=== PATIENT | female | born 1955 | race African-American/Black ===

== ENCOUNTER 2017-08-17 14:29 | Emergency (ER) | payer OTHER ==
--- NOTE | 2017-08-17 16:00 | RAD REPORT ---
EXAM DESCRIPTION: RAD - Chest Pa And Lat (2 Views) - 08/17/2017 3:55 pm CLINICAL HISTORY: Chest pain. COMPARISON: 05/12/2016, 07/10/2014 FINDINGS: Linear atelectasis seen both lung bases. No focal infiltrate typical of pneumonia. The hea rt is mildly enlarged in size. No displaced fractures. IMPRESSION: Linear atelectasis in both lung bases.
[2017-08-17 16:20] LABS: Urine Bacteria <20 /HPF (<20); Urine RBC <5 /HPF (NONE SEEN)
[2017-08-17 16:21] LABS: Urine Culture Reflex Order NOT NEEDED
[2017-08-17 16:23] LABS: Urine Blood NEGATIVE (NEG); Urine Glucose 3+ (NEG); Urine Protein 1+ (NEG); Urine Specific Gravity 1.015 (1.005-1.030); Urine pH 5.5 (5.0-7.0)
--- NOTE | 2017-08-17 16:45 | EDPHYS ---
Physician Documentation [facility] Name: Aym Montalvo Age: 61 yrs Sex: Female : 1955 Arrival Date: 08/17/2017 Time: 14:32 Bed 6 Private MD: ED Physician Irineo Whelan HPI: 08/17 15:26 This 61 yrs old Black Female presents to ER via Ambulatory with complaints of Flu snw Symptoms. 15:26 "I just feel terrible". Onset: The symptoms/episode began/occurred gradually, 1 day(s) snw ago, and became persistent. Severity of symptoms: At their worst the symptoms were moderate. It is unknown whether or not the patient has had similar symptoms in the past. It is unknown whether or not the patient has recently seen a physician. Historical: - Allergies: 14:39 Dilaudid; aj 14:39 Flagyl; aj 14:39 PENICILLINS; aj - Home Meds: 14:39 aspirin 81 mg Oral TbEC [Active]; atorvastatin 40 mg Oral tab [Active]; glipizide 10 mg aj Oral tr24 2 tabs once daily [Active]; lisinopril 20 mg Oral tab 2 tabs once daily [Active]; metformin 1,000 mg Oral tab [Active]; nifedipine 30 mg Oral TbER [Active]; Victoza 2-Zaire 0.6 mg/0.1 mL (18 mg/3 mL) subcutaneous pnij [Active]; Jardiance oral oral [Active]; - PMHx: 14:39 Diabetes - NIDDM; Hyperlipidemia; Hypertension; Sleep Apnea; aj - PSHx: 14:39 ; Bowel resection; aj - Immunization history:: Adult Immunizations up to date. - Social history:: Smoking status: Patient/guardian denies using tobacco. ROS: 15:23 Eyes: Negative for injury, pain, redness, and discharge, ENT: Negative for injury, snw pain, and discharge, Neck: Negative for injury, pain, and swelling, Cardiovascular: Negative for chest pain, palpitations, and edema. 15:23 Back: Negative for injury and pain, : Negative for injury, bleeding, discharge, and swelling, MS/Extremity: Negative for injury and deformity, Skin: Negative for injury, rash, and discoloration, Neuro: Negative for headache, weakness, numbness, tingling, and seizure. 15:23 Constitutional: Positive for body aches, fatigue, malaise. 15:23 Respiratory: Positive for occ shortness of breath. 15:23 Abdomen/GI: Positive for nausea. Exam: 15:22 Constitutional: This is a well developed, well nourished patient who is awake, alert, snw and in no acute distress. Head/Face: Normocephalic, atraumatic. Eyes: Pupils equal round and reactive to light, extra-ocular motions intact. Lids and lashes normal. Conjunctiva and sclera are non-icteric and not injected. Cornea within normal limits. Periorbital areas with no swelling, redness, or edema. ENT: Nares patent. No nasal discharge, no septal abnormalities noted. Tympanic membranes are normal and external auditory canals are clear. Oropharynx with no redness, swelling, or masses, exudates, or evidence of obstruction, uvula midline. Mucous membranes moist. Neck: Trachea midline, no thyromegaly or masses palpated, and no cervical lymphadenopathy. Supple, full range of motion without nuchal rigidity, or vertebral point tenderness. No Meningismus. Chest/axilla: Normal chest wall appearance and motion. Nontender with no deformity. No lesions are appreciated. Cardiovascular: Regular rate and rhythm with a normal S1 and S2. No gallops, murmurs, or rubs. Normal PMI, no JVD. No pulse deficits. 15:22 Abdomen/GI: Soft, non-tender, with normal bowel sounds. No distension or tympany. No guarding or rebound. No evidence of tenderness throughout. Back: No spinal tenderness. No costovertebral tenderness. Full range of motion. Skin: Warm, dry with normal turgor. Normal color with no rashes, no lesions, and no evidence of cellulitis. MS/ Extremity: Pulses equal, no cyanosis. Neurovascular intact. Full, normal range of motion. Neuro: Awake and alert, GCS 15, oriented to person, place, time, and situation. Cranial nerves II-XII grossly intact. Motor strength 5/5 in all extremities. Sensory grossly intact. Cerebellar exam normal. Normal gait. 15:22 Respiratory: the patient does not display signs of respiratory distress, Respirations: normal, Breath sounds: wheezing: rare. Vital Signs: 14:39 BP 121 / 71; Pulse 100; Resp 14; Temp 98.4; Pulse Ox 95% on R/A; Weight 97.07 kg; aj Height 5 ft. 6 in. (167.64 cm); 15:30 BP 122 / 65; Pulse 86; Resp 16; Pulse Ox 94% ; jl7 16:30 BP 120 / 62; Pulse 89; Resp 16; Pulse Ox 92% ; jl7 17:00 BP 128 / 82; Pulse 86; Resp 18 S; Temp 98.8(O); Pulse Ox 96% on R/A; aa5 17:30 BP 144 / 86; Pulse 87; Resp 16; Pulse Ox 93% ; jl7 14:39 Body Mass Index 34.54 (97.07 kg, 167.64 cm) aj 16:30 pt sleeping jl7 MDM: 15:15 Patient medically screened. snw 17:15 Data reviewed: vital signs, nurses notes. Data interpreted: Pulse oximetry: on room air snw is 96 %. Interpretation: normal. Counseling: I had a detailed discussion with the patient and/or guardian regarding: the historical points, exam findings, and any diagnostic results supporting the discharge/admit diagnosis, the presence of at least one elevated blood pressure reading (>120/80) during this emergency department visit, the need for outpatient follow up, for definitive care, to return to the emergency department if symptoms worsen or persist or if there are any questions or concerns that arise at home. Special discussion: Based on the history and exam findings, there is no indication for further emergent testing or inpatient evaluation. I discussed with the patient/guardian the need to see the primary care provider for further evaluation of the symptoms. 08/17 15:26 Order name: Urine Culture [facility] 08/17 15:26 Order name: Urine Microscopic Only; Complete Time: 16:21 snw 08/17 15:26 Order name: Chest Pa And Lat (2 Views) XRAY; Complete Time: 16:01 snw 08/17 16:02 Order name: Urine Dipstick--Ancillary (enter results); Complete Time: 16:24 eb 08/17 15:26 Order name: Urine Dipstick-Ancillary (obtain specimen); Complete Time: 15:57 snw 08/17 15:26 Order name: EKG; Complete Time: 15:26 sn 08/17 15:26 Order name: EKG - Nurse/Tech; Complete Time: 15:47 snw 08/17 16:22 Order name: VS Recheck; Complete Time: 17:02 snw Administered Medications: 17:02 Drug: Victor 5 mg-325 mg 1 tabs Route: PO; aa5 17:35 Follow up: Response: No adverse reaction; Pain is decreased jl7 17:02 Drug: Zofran 4 mg Route: PO; aa5 17:35 Follow up: Response: No adverse reaction; Nausea is decreased jl7 Disposition: 18:15 Co-signature as Attending Physician, Irineo Whelan MD. rn Disposition: 08/17/17 16:44 Discharged to Home. Impression: Malaise and fatigue. - Condition is Stable. - Discharge Instructions: Fatigue. - Prescriptions for Zofran 4 mg Oral Tablet - take 1 tablet by ORAL route 3 times per day As needed; 6 tablet. - Medication Reconciliation Form, Thank You Letter, Antibiotic Education, Prescription Opioid Use form. - Follow up: Private Physician; When: Tomorrow; Reason: Recheck today's complaints, Continuance of care, Re-evaluation by your physician. Follow up: Emergency Department; When: As needed; Reason: Worsening of condition. Signatures: Dispatcher [employer] EDRissa Salazar RN Shira Richards, BARREL FILLER-C BARREL FILLER-Csnw Irineo Whelan MD MD rn Calderon, Audri RN RN aa5 Rachel Guadalupe RN RN jl7 Corrections: (The following items were deleted from the chart) 17:36 16:44 08/17/2017 16:44 Discharged to Home. Impression: Malaise and fatigue. Condition jl7 is Stable. Forms are Medication Reconciliation Form, Thank You Letter, Antibiotic Education, Prescription Opioid Use. Follow up: Private Physician; When: Tomorrow; Reason: Recheck today's complaints, Continuance of care, Re-evaluation by your physician. Follow up: Emergency Department; When: As needed; Reason: Worsening of condition. snw
--- NOTE | 2017-08-17 16:45 | ER ---
Nurse's Notes [facility] Name: Amy Montalvo Age: 61 yrs Sex: Female : 1955 Arrival Date: 08/17/2017 Time: 14:32 Bed 6 Private MD: Diagnosis: Malaise and fatigue Presentation: 08/17 14:37 Presenting complaint: Patient states: Flu like symptoms since yesterday. Transition of care: patient was not received from another setting of care. Onset of symptoms was August 16, 2017. Initial Sepsis Screen: Does the patient meet any 2 criteria? No. Patient's initial sepsis screen is negative. Does the patient have a suspected source of infection? No. Patient's initial sepsis screen is negative. Care prior to arrival: None. 14:37 Method Of Arrival: Ambulatory 14:37 Acuity: FARIDA 4 Triage Assessment: 14:39 General: Appears in no apparent distress. comfortable, Behavior is calm, cooperative, aj appropriate for age. Pain: Complains of pain in body aches. EENT: Reports nasal congestion nasal discharge. Neuro: Level of Consciousness is awake, alert, obeys commands, Oriented to person, place, time, situation, Appropriate for age. Respiratory: Reports cough that is. Derm: Skin is intact, is healthy with good turgor, Skin is pink, warm \T\ dry. normal. Historical: - Allergies: 14:39 Dilaudid; aj 14:39 Flagyl; aj 14:39 PENICILLINS; aj - Home Meds: 14:39 aspirin 81 mg Oral TbEC [Active]; atorvastatin 40 mg Oral tab [Active]; glipizide 10 mg aj Oral tr24 2 tabs once daily [Active]; lisinopril 20 mg Oral tab 2 tabs once daily [Active]; metformin 1,000 mg Oral tab [Active]; nifedipine 30 mg Oral TbER [Active]; Victoza 2-Zaire 0.6 mg/0.1 mL (18 mg/3 mL) subcutaneous pnij [Active]; Jardiance oral oral [Active]; - PMHx: 14:39 Diabetes - NIDDM; Hyperlipidemia; Hypertension; Sleep Apnea; aj - PSHx: 14:39 ; Bowel resection; aj - Immunization history:: Adult Immunizations up to date. - Social history:: Smoking status: Patient/guardian denies using tobacco. Screenin:30 Abuse screen: Denies threats or abuse. Denies injuries from another. Nutritional jl7 screening: No deficits noted. Tuberculosis screening: No symptoms or risk factors identified. Fall Risk None identified. Assessment: 15:30 General: Appears in no apparent distress. uncomfortable, Behavior is calm, cooperative, jl7 appropriate for age. Pain: Complains of pain in throat Pain does not radiate. Pain currently is 5 out of 10 on a pain scale. Quality of pain is described as sore Pain began 1 day ago. Is continuous. Neuro: Level of Consciousness is awake, alert, obeys commands. Cardiovascular: Heart tones S1 S2 present Patient's skin is warm and dry. Respiratory: Airway is patent Respiratory effort is even, unlabored, Respiratory pattern is regular, symmetrical, Breath sounds are clear bilaterally. GI: Reports nausea, Patient currently denies diarrhea, vomiting. : No signs and/or symptoms were reported regarding the genitourinary system. EENT: No signs and/or symptoms were reported regarding the EENT system. Derm: Skin is dry, Skin is normal, Skin temperature is warm. Musculoskeletal: No signs and/or symptoms reported regarding the musculoskeletal system. 16:30 Reassessment: Patient and/or family updated on plan of care and expected duration. Pain jl7 level reassessed. Patient is alert, oriented x 3, equal unlabored respirations, skin warm/dry/pink. 17:00 Reassessment: Patient and/or family updated on plan of care and expected duration. Pain jl7 level reassessed. Patient is alert, oriented x 3, equal unlabored respirations, skin warm/dry/pink. Patient states symptoms have improved. Vital Signs: 14:39 BP 121 / 71; Pulse 100; Resp 14; Temp 98.4; Pulse Ox 95% on R/A; Weight 97.07 kg; aj Height 5 ft. 6 in. (167.64 cm); 15:30 BP 122 / 65; Pulse 86; Resp 16; Pulse Ox 94% ; jl7 16:30 BP 120 / 62; Pulse 89; Resp 16; Pulse Ox 92% ; jl7 17:00 BP 128 / 82; Pulse 86; Resp 18 S; Temp 98.8(O); Pulse Ox 96% on R/A; aa5 17:30 BP 144 / 86; Pulse 87; Resp 16; Pulse Ox 93% ; jl7 14:39 Body Mass Index 34.54 (97.07 kg, 167.64 cm) aj 16:30 pt sleeping jl7 ED Course: 14:32 Patient arrived in ED. sb2 14:38 Triage completed. aj 14:39 Arm band placed on left wrist. Patient placed in an exam room. aj 15:13 Rachel Guadalupe, RN is Primary Nurse. jl7 15:14 Shira Hunt FNP-C is PHCP. snw 15:14 Irineo Whelan MD is Attending Physician. snw 15:30 Patient has correct armband on for positive identification. Placed in gown. Bed in low jl7 position. Call light in reach. Side rails up X 1. Pulse ox on. NIBP on. 15:30 Urine collected: clean catch specimen, EKG done, by ED staff, reviewed by Shira LENZ. 15:55 Chest Pa And Lat (2 Views) XRAY In Process Unspecified. EDRI 17:34 No provider procedures requiring assistance completed. Patient did not have IV access jl7 during this emergency room visit. Administered Medications: 17:02 Drug: [place] 5 mg-325 mg 1 tabs Route: PO; aa5 17:35 Follow up: Response: No adverse reaction; Pain is decreased jl7 17:02 Drug: Zofran 4 mg Route: PO; aa5 17:35 Follow up: Response: No adverse reaction; Nausea is decreased jl7 Outcome: 16:44 Discharge ordered by MD. snw 17:34 Discharged to home via wheelchair, with family. jl7 17:34 Condition: stable 17:34 Discharge instructions given to patient, Instructed on discharge instructions, follow up and referral plans. medication usage, Demonstrated understanding of instructions, follow-up care, medications, Prescriptions given X 1. 17:36 Patient left the ED. jl7 Signatures: Dispatcher [employer] EDRissa Salazar RN RN aj Therrien, Shelly, FNP-C FNP-Deviw Sandy Paris RN RN aa5 Leal, Jahala, RN RN jl7 Carie Troncoso sb2 Corrections: (The following items were deleted from the chart) 14:38 14:37 Acuity: FARIDA 3 aj aj 17:34 15:30 BP 120 / 62; Pulse 89bpm; Resp 16bpm; Pulse Ox 92%; pt sleeping; jl7 jl7 17:34 16:30 BP 144 / 86; Pulse 87bpm; Resp 16bpm; Pulse Ox 93%; jl7 jl7
[2017-08-17] MEDS ORDERED: HYDROCODONE/APAP 5/325 MG TAB ONE (16:58)
[2017-08-17] MEDS ORDERED: ONDANSETRON 4 MG (ODT) TAB ONE (16:58)
[2017-08-17 17:43] VITALS: TEMP 98.8
[2017-08-17 17:45] VITALS: BP 144/86; O2SAT 93
--- NOTE | 2017-08-18 06:55 | EKG ---
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
== END 2017-08-17 17:36 | disposition home or self-care (01) ==
LOC: ER 14:29
DX: R53.81 Other malaise (principal); R53.83 Other fatigue; R11.0 Nausea; I10 Essential (primary) hypertension; E11.9 Type 2 diabetes mellitus without complications; E78.5 Hyperlipidemia, unspecified; Z79.82 Long term (current) use of aspirin; Z79.4 Long term (current) use of insulin; Z88.0 Allergy status to penicillin; Z88.8 Allergy status to other drugs, medicaments and biological substances
CPT/HCPCS: 71046; 81003; 81015; 87086; 87088; 93005; 99284

== ENCOUNTER 2017-10-04 18:23 | Emergency (ER) | payer OTHER ==
[2017-10-04 19:45] LABS: Absolute Lymphocytes (CBC) 2.3 K/uL (0.7-4.9); Absolute Monocytes 0.5 K/uL (0.1-1.3); Basophils % 0.5 % (0-1.3); Eosinophils % 2.4 % (0-4.4); Hematocrit 37.6 % (36.0-45.0); Lymphocytes % 32.6 % (15.3-44.8); MCH 25.7 pg (27.0-35.0); MCV 80.6 fL (80-100); MPV 10.2 fL (7.6-11.3); Monocytes % 7.7 % (3.3-12.3); RBC Red Blood Cell Count 4.67 M/uL (3.86-4.86)
[2017-10-04 19:52] LABS: Protime INR 0.94
[2017-10-04] MEDS ORDERED: IPRATROPIUM BROM 0.5MG/2.5ML ONE (20:09)
[2017-10-04] MEDS ORDERED: ALBUTEROL 2.5 MG/3 ML NEB SOL ONE (20:09)
--- NOTE | 2017-10-04 20:11 | RAD REPORT ---
EXAM DESCRIPTION: RAD - Chest Single View - 10/04/2017 8:02 pm CLINICAL HISTORY: COUGH Chest pain. COMPARISON: Chest Pa And Lat (2 Views) dated 08/17/2017; Chest Single View dated 05/12/2016; CHEST PA A ND LAT 2 VIEW dated 07/10/2014; CHEST SINGLE VIEW dated 02/26/2013Chest Pa And Lat (2 Views) dated 08/17; Chest Single View dated 05/12/2016; CHEST PA AND LAT 2 VIEW dated 07/10/2014; CHEST SINGLE VIEW dated 02/26/2013; CHEST PA AND LAT 2 VIEW dated 02/04/2011 FINDINGS: Portable technique limits examination quality. The lungs are grossly clear. The heart is upper limit normal size. No displaced fractures. IMPRESSION: No acute intrathoracic process suspected.
[2017-10-04 20:18] LABS: Urine Blood NEGATIVE (NEG); Urine Glucose 2+ (NEG); Urine Protein NEGATIVE (NEG); Urine Specific Gravity 1.015 (1.005-1.030); Urine pH 5.5 (5.0-7.0)
[2017-10-04 21:19] LABS: Urine Amorphous Sediment TRACE /HPF (NONE SEEN); Urine Bacteria <20 /HPF (<20); Urine Culture Reflex Order NOT NEEDED; Urine RBC <5 /HPF (NONE SEEN)
[2017-10-04] MEDS ORDERED: NA CHLORIDE 0.9% 1,000 ML ONE (21:37)
[2017-10-04 22:30] LABS: ALT/SGPT 22 U/L (12-78); AST/SGOT 18 U/L (15-37); Albumin 3.1 g/dL (3.4-5.0); Alkaline Phosphatase 100 U/L (45-117); BUN Blood Urea Nitrogen 30 mg/dL (7-18); Bicarbonate 28 mmol/L (21-32); Bilirubin Direct < 0.1 mg/dL (0-0.2); Bilirubin Total 0.1 mg/dL (0.2-1.0); CKMB Creatine Kinase MB < 1.0 ng/mL (0.3-3.6); Creatine Phosphokinase 67 U/L (26-192); Glucose Level 299 mg/dL (74-106); Magnesium 1.9 mg/dL (1.8-2.4); Potassium 3.5 mmol/L (3.5-5.1); Protein, Total 7.2 g/dL (6.4-8.2); Sodium Level 136 mmol/L (136-145)
--- NOTE | 2017-10-04 23:14 | EDPHYS ---
Physician Documentation [facility] Name: Amy Montalvo Age: 61 yrs Sex: Female : 1955 Arrival Date: 10/04/2017 Time: 18:26 Bed 25 Private MD: ED Physician Pancho Morrison HPI: 10/04 19:16 This 61 yrs old Black Female presents to ER via Ambulatory with complaints of High cp Blood Sugar. 19:16 The patient or guardian reports hyperglycemia, that was potentially precipitated by no cp particular event. Onset: The symptoms/episode began/occurred this morning. Associated signs and symptoms: Pertinent positives: cough times 2 months. 19:16 Current symptoms: In the emergency department the patient's symptoms have improved, cp mildly. Historical: - Allergies: 18:30 Dilaudid; hj 18:30 Flagyl; hj 18:30 PENICILLINS; hj - Home Meds: 18:30 aspirin 81 mg Oral TbEC [Active]; atorvastatin 40 mg Oral tab [Active]; Actos Oral hj [Active]; Tresiba FlexTouch U-100 100 unit/mL (3 mL) subcutaneous inpn [Active]; nifedipine 30 mg Oral TbER [Active]; Metoprolol Tartrate Oral [Active]; - PMHx: 18:30 Diabetes - NIDDM; Hyperlipidemia; Hypertension; Sleep Apnea; hj - PSHx: 18:30 ; Bowel resection; hj - Immunization history:: Adult Immunizations up to date. - Social history:: Smoking status: Patient/guardian denies using tobacco, Patient/guardian denies using alcohol. - Ebola Screening: : Patient negative for fever greater than or equal to 101.5 degrees Fahrenheit, and additional compatible Ebola Virus Disease symptoms Patient denies exposure to infectious person Patient denies travel to an Ebola-affected area in the 21 days before illness onset. ROS: 19:20 Constitutional: Negative for body aches, chills, fever, poor PO intake. cp 19:20 Eyes: Negative for injury, pain, redness, and discharge. cp 19:20 ENT: Negative for drainage from ear(s), ear pain, rhinorrhea, sore throat, difficulty swallowing, difficulty handling secretions. 19:20 Cardiovascular: Negative for chest pain, edema, palpitations. 19:20 Respiratory: Positive for cough, with no reported sputum, Negative for shortness of breath, wheezing. 19:20 Abdomen/GI: Negative for abdominal pain, nausea, vomiting, and diarrhea, black/tarry stool, rectal bleeding. 19:20 Back: Negative for pain at rest, pain with movement, radiated pain. 19:20 : Negative for urinary symptoms. 19:20 Skin: Negative for cellulitis, rash. 19:20 Neuro: Negative for altered mental status, dizziness, headache, loss of consciousness, syncope, near syncope. 19:20 All other systems are negative. Exam: 19:30 Constitutional: The patient appears in no acute distress, alert, awake, cp non-diaphoretic, non-toxic, well developed, well nourished. 19:30 Head/Face: Normocephalic, atraumatic. cp 19:30 Eyes: Periorbital structures: appear normal, Pupils: equal, round, and reactive to cp light and accomodation, Extraocular movements: intact throughout, Conjunctiva: normal, no exudate, no injection, Sclera: no appreciated abnormality, Lids and lashes: appear normal, bilaterally. 19:30 ENT: External ear(s): are unremarkable, Ear canal(s): are normal, clear, TM's: bulging, is not appreciated, bilaterally, dullness, bilaterally, erythema, is not appreciated, bilaterally, Nose: is normal, Mouth: Lips: moist, Oral mucosa: pink and intact, moist, Posterior pharynx: is normal, airway is patent, no erythema, no exudate, Voice: is normal. 19:30 Neck: ROM/movement: is normal, is supple, without pain, no range of motions limitations, no meningismus, no nuchal rigidity. 19:30 Chest/axilla: Inspection: normal, Palpation: is normal, no crepitus, no tenderness. 19:30 Cardiovascular: Rate: normal, Rhythm: regular, Pulses: Pulses are 2+ in right radial artery and left radial artery. Edema: is not appreciated, JVD: is not appreciated. 19:30 Respiratory: the patient does not display signs of respiratory distress, Respirations: cp normal, no use of accessory muscles, no retractions, no splinting, no tachypnea, labored breathing, is not present, Breath sounds: bronchial sounds, that are mild, are heard diffusely, decreased breath sounds, are not appreciated, stridor, is not appreciated, + upper airway congestion. wheezing: is not appreciated. 19:30 Abdomen/GI: Inspection: abdomen appears normal, Bowel sounds: active, all quadrants, Palpation: abdomen is soft and non-tender, in all quadrants, rebound tenderness, is not appreciated, voluntary guarding, is not appreciated, involuntary guarding, is not appreciated. 19:30 Back: pain, is absent, ROM is normal. 19:30 Skin: cellulitis, is not appreciated, no rash present. 19:30 Neuro: Orientation: to person, place \T\ time. Mentation: lucid, able to follow commands, Cerebellar function: is grossly normal, Motor: moves all fours, strength is normal, Sensation: no obvious gross deficits, Gait: is steady. 21:20 ECG was reviewed by the Attending Physician. cp Vital Signs: 18:30 BP 123 / 68; Pulse 97; Resp 18; Temp 97.9(TE); Pulse Ox 94% on R/A; Weight 95.25 kg; hj Height 5 ft. 7 in. (170.18 cm); Pain 0/10; 23:35 BP 114 / 62; Pulse 96; Resp 16; Pulse Ox 95% ; tl3 18:30 Body Mass Index 32.89 (95.25 kg, 170.18 cm) hj MDM: 18:36 Patient medically screened. cp 20:00 Differential diagnosis: DKA, hyperglycemia, hyperthyroidism, hypothyroidism, UTI, cp pneumonia, asthma. 23:10 Data reviewed: vital signs, nurses notes, lab test result(s), EKG, radiologic studies, cp plain films. 23:10 Test interpretation: by ED physician or midlevel provider: ECG, plain radiologic cp studies. Counseling: I had a detailed discussion with the patient and/or guardian regarding: the historical points, exam findings, and any diagnostic results supporting the discharge/admit diagnosis, lab results, radiology results, the need for outpatient follow up, an external auditor. Response to treatment: the patient's symptoms have mildly improved after treatment, VSS. Cough improved with breathing treatment. Will discharge to home for continued monitoring. 10/04 18:37 Order name: Urine Microscopic Only; Complete Time: 21:37 cp 10/04 21:37 Interpretation: Normal except: SQEPI 10-20. cp 10/04 19:18 Order name: Basic Metabolic Panel; Complete Time: 22:57 cp 10/04 22:57 Interpretation: Normal except: GLUC 299; BUN 30; GFR 55. cp 10/04 19:18 Order name: CBC with Diff; Complete Time: 20:27 cp 10/04 20:27 Interpretation: Normal except: MCH 25.7; MCHC 31.8; RDW 16.8. cp 10/04 19:18 Order name: Ckmb; Complete Time: 22:57 cp 10/04 19:18 Order name: CPK; Complete Time: 22:57 cp 10/04 19:18 Order name: LFT's; Complete Time: 22:57 cp 10/04 22:57 Interpretation: Normal except: BILIT 0.1; ALB 3.1; GLOB 4.1; A/G 0.8. cp 10/04 19:18 Order name: Magnesium; Complete Time: 22:57 cp 10/04 19:18 Order name: PT-INR; Complete Time: 20:27 cp 10/04 21:55 Interpretation: Reviewed. 10/04 19:18 Order name: Ptt, Activated; Complete Time: 20:27 cp 10/04 19:18 Order name: Troponin (emerg Dept Use Only); Complete Time: 22:57 cp 10/04 22:57 Interpretation: TROPED < 0.02; Reviewed. 10/04 19:18 Order name: XRAY Chest (1 view); Complete Time: 20:27 cp 10/04 20:00 Order name: Urine Dipstick--Ancillary (enter results) rg2 10/04 20:00 Order name: Urine Dipstick-Ancillary; Complete Time: 20:27 EDMS 10/04 21:39 Interpretation: Normal except: UGLUC 2+. cp 10/04 18:37 Order name: Urine Dipstick-Ancillary (obtain specimen); Complete Time: 20:09 cp 10/04 19:18 Order name: EKG; Complete Time: 19:19 cp 10/04 19:18 Order name: Cardiac monitoring; Complete Time: 20:09 cp 10/04 19:18 Order name: EKG - Nurse/Tech; Complete Time: 21:41 cp 10/04 19:18 Order name: IV Saline Lock; Complete Time: 21:41 cp 10/04 19:18 Order name: Labs collected and sent; Complete Time: 20:09 10/04 19:18 Order name: O2 Per Protocol; Complete Time: 20:09 cp 10/04 19:18 Order name: O2 Sat Monitoring; Complete Time: 20:09 cp 10/04 21:12 Order name: Accucheck Blood Glucose; Complete Time: 23:30 cp EC:20 Rate is 87 beats/min. Rhythm is regular. AL interval is normal. QRS interval is normal. cp QT interval is normal. No ST changes noted. Interpreted by me. Reviewed by me. Administered Medications: 20:09 Drug: Albuterol - atroVENT (3:1) (2.5 mg - 0.5 mg) 3 ml Route: Nebulizer; tl3 23:37 Follow up: Response: No adverse reaction tl3 21:41 Drug: NS 0.9% 1000 ml Route: IV; Rate: 1 bolus; Site: left forearm; tl3 23:37 Follow up: IV Status: Completed infusion; IV Intake: 1000ml tl3 Point of Care Testing: Blood Glucose: 18:36 Blood Glucose: 371 mg/dL; tl3 Ranges: Critical Glucose Levels:Adult <50 mg/dl or >400 mg/dl <40 mg/dl or >180 mg/dl Disposition: 10/04/17 23:13 Discharged to Home. Impression: Diabetes mellitus due to underlying condition with hyperglycemia, Cough. - Condition is Stable. - Discharge Instructions: Cool Mist Vaporizers, Blood Glucose Monitoring, Adult, Diabetes Mellitus and Food, Cough, Adult. - Prescriptions for Tessalon Perles 100 mg Oral Capsule - take 1 capsule by ORAL route every 8 hours As needed; 15 capsule. Albuterol Sulfate 90 mcg/actuation - inhale 1-2 puff by INHALATION route every 4-6 hours; 1 Inhaler. Medrol (Zaire) 4 mg Oral Tablets, Dose Pack - take 1 tablet by ORAL route as directed - follow package instructions; 1 packet. - Medication Reconciliation Form, Thank You Letter, Antibiotic Education, Prescription Opioid Use form. - Follow up: Private Physician; When: 1 - 2 days; Reason: Recheck today's complaints. - Problem is new. - Symptoms have improved. Addendum: 10/06/2017 13:13 Co-signature as Attending Physician, Pancho Morrison MD Available for consultation at p s1 all times. . Signatures: Dispatcher [employer] Herb Hernandez, RN RN hj Akira Patel PA PA cp Pancho Morrison MD MD ps1 Saba Ling, AGUEDA RN tl3 Corrections: (The following items were deleted from the chart) 10/04 23:38 23:13 10/04/2017 23:13 Discharged to Home. Impression: Diabetes mellitus due to tl3 underlying condition with hyperglycemia; Cough. Condition is Stable. Forms are Medication Reconciliation Form, Thank You Letter, Antibiotic Education, Prescription Opioid Use. Follow up: Private Physician; When: 1 - 2 days; Reason: Recheck today's complaints. Problem is new. Symptoms have improved. cp
--- NOTE | 2017-10-04 23:14 | ER ---
Nurse's Notes [facility] Name: Amy Montalvo Age: 61 yrs Sex: Female : 1955 Arrival Date: 10/04/2017 Time: 18:26 Bed 25 Private MD: Diagnosis: Diabetes mellitus due to underlying condition with hyperglycemia;Cough Presentation: 10/04 18:26 Presenting complaint: Patient states: i checked by blood sugar about 30 mins ago, BGL- hj 476; did not take meds this AM; reports feeling weak; denies nausea and vomiting;. Transition of care: patient was not received from another setting of care. Onset of symptoms was October 04, 2017. Risk Assessment: Do you want to hurt yourself or someone else? Patient reports no desire to harm self or others. Initial Sepsis Screen: Does the patient meet any 2 criteria? No. Patient's initial sepsis screen is negative. Does the patient have a suspected source of infection? No. Patient's initial sepsis screen is negative. Care prior to arrival: None. 18:26 Method Of Arrival: Ambulatory 18:26 Acuity: FARIDA 3 hj Triage Assessment: 18:30 General: Appears in no apparent distress. comfortable, Behavior is calm, cooperative, hj appropriate for age. Pain: Denies pain. Historical: - Allergies: 18:30 Dilaudid; hj 18:30 Flagyl; hj 18:30 PENICILLINS; hj - Home Meds: 18:30 aspirin 81 mg Oral TbEC [Active]; atorvastatin 40 mg Oral tab [Active]; Actos Oral hj [Active]; Tresiba FlexTouch U-100 100 unit/mL (3 mL) subcutaneous inpn [Active]; nifedipine 30 mg Oral TbER [Active]; Metoprolol Tartrate Oral [Active]; - PMHx: 18:30 Diabetes - NIDDM; Hyperlipidemia; Hypertension; Sleep Apnea; hj - PSHx: 18:30 ; Bowel resection; hj - Immunization history:: Adult Immunizations up to date. - Social history:: Smoking status: Patient/guardian denies using tobacco, Patient/guardian denies using alcohol. - Ebola Screening: : Patient negative for fever greater than or equal to 101.5 degrees Fahrenheit, and additional compatible Ebola Virus Disease symptoms Patient denies exposure to infectious person Patient denies travel to an Ebola-affected area in the 21 days before illness onset. Screenin:30 Abuse screen: Denies threats or abuse. Denies injuries from another. Nutritional hj screening: No deficits noted. Tuberculosis screening: No symptoms or risk factors identified. Fall Risk None identified. Assessment: 19:11 Reassessment: pt was recently place on insulin therapy, has been unable to get blood tl3 sugars regulated. General: Appears uncomfortable, obese, well groomed, well developed, well nourished, Behavior is calm, cooperative, appropriate for age. Pain: Denies pain. Neuro: Level of Consciousness is awake, alert, obeys commands, Oriented to person, place, time, situation, Appropriate for age. Cardiovascular: Heart tones S1 S2 present Patient's skin is warm and dry. Respiratory: Airway is patent Respiratory effort is even, unlabored, Respiratory pattern is regular, symmetrical. GI: No signs and/or symptoms were reported involving the gastrointestinal system. : No signs and/or symptoms were reported regarding the genitourinary system. EENT: No signs and/or symptoms were reported regarding the EENT system. Derm: No signs and/or symptoms reported regarding the dermatologic system. Musculoskeletal: No signs and/or symptoms reported regarding the musculoskeletal system. 20:15 Reassessment: Patient appears in no apparent distress at this time. No changes from tl3 previously documented assessment. Patient and/or family updated on plan of care and expected duration. Pain level reassessed. Patient is alert, oriented x 3, equal unlabored respirations, skin warm/dry/pink. pt states that she is feeling somewhat better after her breathing treatment. 23:35 Reassessment: Patient appears in no apparent distress at this time. No changes from tl3 previously documented assessment. Patient and/or family updated on plan of care and expected duration. Pain level reassessed. Patient is alert, oriented x 3, equal unlabored respirations, skin warm/dry/pink. Vital Signs: 18:30 BP 123 / 68; Pulse 97; Resp 18; Temp 97.9(TE); Pulse Ox 94% on R/A; Weight 95.25 kg; hj Height 5 ft. 7 in. (170.18 cm); Pain 0/10; 23:35 BP 114 / 62; Pulse 96; Resp 16; Pulse Ox 95% ; tl3 18:30 Body Mass Index 32.89 (95.25 kg, 170.18 cm) ED Course: 18:26 Patient arrived in ED. hj 18:28 Triage completed. hj 18:30 Arm band placed on right wrist. hj 18:30 Patient has correct armband on for positive identification. Placed in gown. Bed in low hj position. Call light in reach. Side rails up X 1. 18:36 Saba Ling RN is Primary Nurse. tl3 18:36 Akira Patel PA is PHCP. cp 18:36 Daniel Snyder MD is Attending Physician. cp 19:09 No provider procedures requiring assistance completed. Initial lab(s) drawn, by de, tl3 Urine collected: clean catch specimen, clear. Inserted saline lock: 20 gauge in left forearm, using aseptic technique. Blood collected. 20:02 XRAY Chest (1 view) In Process Unspecified. EDMS 20:05 Urine Dipstick--Ancillary (enter results) Sent. tl3 20:28 Pancho Morrison MD is Attending Physician. cp 23:35 IV discontinued, intact, bleeding controlled, No redness/swelling at site. Pressure tl3 dressing applied. Administered Medications: 20:09 Drug: Albuterol - atroVENT (3:1) (2.5 mg - 0.5 mg) 3 ml Route: Nebulizer; tl3 23:37 Follow up: Response: No adverse reaction tl3 21:41 Drug: NS 0.9% 1000 ml Route: IV; Rate: 1 bolus; Site: left forearm; tl3 23:37 Follow up: IV Status: Completed infusion; IV Intake: 1000ml tl3 Point of Care Testing: Blood Glucose: 18:36 Blood Glucose: 371 mg/dL; tl3 Ranges: Intake: 23:37 IV: 1000ml; Total: 1000ml. tl3 Outcome: 23:13 Discharge ordered by . cp 23:35 Discharged to home ambulatory. tl3 23:35 Condition: stable 23:35 Discharge instructions given to patient, Instructed on discharge instructions, follow up and referral plans. medication usage, Demonstrated understanding of instructions, follow-up care, medications, Prescriptions given X 3, stressed importance of following up with PCP to regulate insulin needs 23:38 Patient left the ED. tl3 Signatures: Dispatcher [employer] EDMS Herb Sanchez RN RN Akira Patel PA PA cp Lowrey, Tammy, RN RN tl3 Corrections: (The following items were deleted from the chart) 18:32 18:30 Pulse 97bpm; Resp 18bpm; Pulse Ox 94% RA; Temp 97.9F Temporal; 95.25 kg; Height 5 hj ft. 7 in.; BMI: 32.8; Pain 0/10; hj
[2017-10-05 01:22] VITALS: TEMP 97.9
[2017-10-05 01:23] VITALS: BP 114/62; O2SAT 95
--- NOTE | 2017-10-06 06:55 | EKG ---
Test Date: 2017-10-04 Test Time: 21:12:19 Consumer Services Consultant: TL MEASUREMENT RESULTS: Intervals: Rate: 87 IA: 146 QRSD: 86 QT: 384 QTc: 462 Walker: P: 63 IA: 146 QRS: 17 T: 40 INTERPRETIVE STATEMENTS: Normal sinus rhythm Minimal voltage criteria for LVH, may be normal variant Borderline ECG Compared to ECG 08/17/2017 15:40:35 No significant changes Electronically Signed On 10-06-17 06:54:27 CDT by Jin Teague
== END 2017-10-04 23:38 | disposition home or self-care (01) ==
LOC: ER 18:23
DX: E11.65 Type 2 diabetes mellitus with hyperglycemia (principal); I10 Essential (primary) hypertension; E78.5 Hyperlipidemia, unspecified; Z88.3 Allergy status to other anti-infective agents; Z88.0 Allergy status to penicillin; Z88.8 Allergy status to other drugs, medicaments and biological substances
CPT/HCPCS: 36415; 71045; 80048; 80076; 81003; 81015; 82550; 82553; 82962; 83735; 84484; 85025; 85610; 85730; 93005; 94640; 96360; 96361; 99284; J7030

== ENCOUNTER 2018-06-29 09:27 | Inpatient (IN) | payer OTHER ==
--- OUTSIDE RECORDS SUMMARY | 2018-06-29 09:29 | XMS REPORT ---
:1955 [facility] Address [address] [place] [address] Dr. Carlin [address] [place] [id number] Care Team Providers Name Role Phone Unavailable Unavailable Unavailable Payers Payer Name Policy Type Policy Number Effective Date Expiration Date Problems This patient has no known problems. Allergies, Adverse Reactions, Alerts This patient has no known allergies or adverse reactions. Medications This patient has no known medications.
[2018-06-29 10:35] LABS: Absolute Lymphocytes (CBC) 1.2 K/uL (0.7-4.9); Absolute Monocytes 0.7 K/uL (0.1-1.3); Absolute Neutrophil 5.2 K/uL (1.8-8.0); Basophils % 0.3 % (0-1.3); Eosinophils % 3.1 % (0-4.4); Hematocrit 36.8 % (36.0-45.0); Lymphocytes % 16.3 % (15.3-44.8); MPV 9.2 fL (7.6-11.3); Monocytes % 10.1 % (3.3-12.3); RBC Red Blood Cell Count 4.76 M/uL (3.86-4.86)
--- NOTE | 2018-06-29 10:45 | RAD REPORT ---
EXAM DESCRIPTION: RAD - Chest Single View - 06/29/2018 10:32 am CLINICAL HISTORY: Dyspnea;Fever;Cough Chest pain. COMPARISON: Chest Single View dated 10/04/2017; Chest Pa And Lat (2 Views) dated 08/17/2017; Chest Sing le View dated 05/12/2016; CHEST PA AND LAT 2 VIEW dated 07/10/2014 FINDINGS: Portable technique limits examination quality. The lungs are grossly clear. The heart is normal in size. No displaced fractures. IMPRESSION: No acute intrathoracic process suspected.
[2018-06-29 10:55] LABS: Protime INR 0.97
[2018-06-29] MEDS ORDERED: Levofloxacin500mg IV 500 MG/100 ML BAG IV ONE (11:41)
[2018-06-29] MEDS ORDERED: METHYLPREDNISOLONE 125 MG INJ ONE (11:41)
[2018-06-29] MEDS ORDERED: ACETAMINOPHEN 500 MG TAB ONE (11:41)
[2018-06-29] MEDS ORDERED: NA CHLORIDE 0.9% 2,000 ML ONE (11:41)
[2018-06-29 12:01] LABS: ALT/SGPT 32 U/L (12-78); AST/SGOT 29 U/L (15-37); Albumin 3.2 g/dL (3.4-5.0); Alkaline Phosphatase 84 U/L (45-117); BUN Blood Urea Nitrogen 19 mg/dL (7-18); Bicarbonate 29 mmol/L (21-32); Bilirubin Direct < 0.1 mg/dL (0-0.2); Bilirubin Total 0.5 mg/dL (0.2-1.0); CKMB Creatine Kinase MB 1.6 ng/mL (0.3-3.6); Creatine Phosphokinase 292 U/L (26-192); Glucose Level 187 mg/dL (74-106); Lipase 40 U/L (73-393); NT PRO-BNP 108 pg/mL (<125); Potassium 4.2 mmol/L (3.5-5.1); Protein, Total 7.7 g/dL (6.4-8.2); Sodium Level 139 mmol/L (136-145); Troponin (Emerg Dept Use Only) < 0.02 ng/mL (0.0-0.045)
[2018-06-29] MEDS ORDERED: IPRATROPIUM BROM 0.5MG/2.5ML ONE (12:39)
[2018-06-29] MEDS ORDERED: ALBUTEROL 2.5 MG/3 ML NEB SOL ONE (12:39)
--- NOTE | 2018-06-29 13:07 | RAD REPORT ---
EXAM DESCRIPTION: CT - Abdomen Pelvis W Contrast - 06/29/2018 12:52 pm CLINICAL HISTORY: Abdominal pain . COMPARISON: 2016 TECHNIQUE: Computed axial tomography of the abdomen pelvis was obtained. 100 cc Isovue-300 was admin istered intravenously. Oral contrast was not requested which limits evaluation of bowel. All CT scans are performed using dose optimization technique as appropriate and may include automated exposure control or mA/KV adjustment according to patient size. FINDINGS: The liver, spleen, pancreas, adrenal and kidneys appear unremarkable. Diverticula stem from the colon. Mild stranding is present adjacent to the proximal aspect of the susana cending colon compatible with diverticulitis. Postsurgical changes involve the sigmoid colon. The appendix is normal IMPRESSION: Mild descending diverticulitis
--- NOTE | 2018-06-29 13:41 | ER ---
Nurse's Notes [facility] Name: Amy Montalvo Age: 62 yrs Sex: Female : 1955 Arrival Date: 06/29/2018 Time: 09:29 Bed 15 Private MD: Diagnosis: Diverticulitis of large intestine without perforation or abscess without bleeding;Acute bronchitis;Acute respiratory failure with hypoxia;Dehydration Presentation: 06/29 09:43 Presenting complaint: Productive cough, body aches, subjective fever, and SOB x 4 days. hb Transition of care: patient was not received from another setting of care. Onset of symptoms was June 26, 2018. Risk Assessment: Do you want to hurt yourself or someone else? Patient reports no desire to harm self or others. Care prior to arrival: None. 09:43 Method Of Arrival: Wheelchair 09:43 Acuity: FARIDA 2 hb Historical: - Allergies: 09:46 Dilaudid; hb 09:46 Flagyl; hb 09:46 PENICILLINS; hb - Home Meds: 09:46 Actos Oral [Active]; aspirin 81 mg Oral TbEC [Active]; atorvastatin 40 mg Oral tab hb [Active]; Metoprolol Tartrate Oral [Active]; nifedipine 30 mg Oral TbER [Active]; Tresiba FlexTouch U-100 100 unit/mL (3 mL) subcutaneous inpn [Active]; - PMHx: 09:46 Diabetes - NIDDM; Hyperlipidemia; Hypertension; Sleep Apnea; hb - PSHx: 09:46 ; Bowel resection; hb - Immunization history:: Adult Immunizations up to date. - Social history:: Smoking status: Patient/guardian denies using tobacco. - Ebola Screening: : No symptoms or risks identified at this time. Screenin:00 Abuse screen: Denies threats or abuse. Denies injuries from another. Nutritional sg screening: No deficits noted. Tuberculosis screening: No symptoms or risk factors identified. Never had TB. Fall Risk None identified. Assessment: 10:00 General: Appears in no apparent distress. comfortable, ill, well groomed, well sg developed, well nourished, Behavior is calm, cooperative, appropriate for age. Pain: Complains of pain in back Quality of pain is described as aching. Neuro: Level of Consciousness is awake, alert, obeys commands, Oriented to person, place, time, Line Therapist are equal bilaterally Moves all extremities. Full function Gait is steady, Speech is normal, Facial symmetry appears normal. Cardiovascular: Capillary refill is brisk in bilateral fingers Patient's skin is warm and dry. Chest pain is denied. Respiratory: Airway is patent Respiratory effort is even, unlabored, Respiratory pattern is regular, symmetrical, Breath sounds are diminished in left posterior lower lobe and right posterior lower lobe. GI: Abdomen is round non-distended, Bowel sounds present X 4 quads. : No signs and/or symptoms were reported regarding the genitourinary system. EENT: No signs and/or symptoms were reported regarding the EENT system. Derm: Skin is intact, is healthy with good turgor, Skin is dry, Skin is normal, Skin temperature is warm. Musculoskeletal: No signs and/or symptoms reported regarding the musculoskeletal system. Vital Signs: 09:45 BP 129 / 85; Pulse 110; Resp 20; Temp 100.2(TE); Pulse Ox 88% on R/A; Pain 8/10; hb 10:00 Pulse Ox 90% on R/A; sg 10:00 Pulse Ox 96% on 2 lpm NC; sg 10:00 Weight 97.52 kg; sg 13:40 BP 122 / 80; Pulse 79; Resp 19; Temp 99.2; Pulse Ox 96% on 3 lpm NC; sg ED Course: 09:29 Patient arrived in ED. as 09:45 Triage completed. hb 09:46 Arm band placed on. EKG completed in triage. Results shown to MD. EKG completed in hb triage. Results shown to MD. 09:54 [facility] jr8 09:54 Akira Canales MD is Attending Physician. jr8 10:00 Initial lab(s) drawn, by ct, sent to lab. First set of blood cultures drawn by me. sg Missed attempt(s): 20 gauge in left forearm. Bleeding controlled, band aid applied, catheter tip intact. 10:10 Patient has correct armband on for positive identification. Bed in low position. Call sg light in reach. Side rails up X2. shelter monitor on. Pulse ox on. NIBP on. 10:15 Second set of blood cultures drawn by me. sg 10:24 Nick Booth, RN is Primary Nurse. sg 10:26 Chest Single View XRAY In Process Unspecified. EDMS 11:14 Inserted saline lock: 22 gauge in right forearm, using aseptic technique. iw 12:55 CT Abd/Pelvis - W/Contrast In Process Unspecified. EDMS 13:40 Lia Pickett MD is Hospitalizing Provider. jr8 13:56 Assisted to bathroom. sg 13:56 Urine collected: clean catch specimen, daniel colored. sg 15:17 Diet: Tolerated well Clear Liquid. sg Administered Medications: 11:30 Drug: LevaQUIN 500 mg Volume: 100 ml; Route: IVPB; Infused Over: 60 mins; Site: right sg forearm; 11:30 Drug: SOLU-Medrol 125 mg Route: IVP; Site: right forearm; sg 11:40 Drug: Acetaminophen 1000 mg Route: PO; sg 11:40 Drug: NS 0.9% (30 ml/kg) 30 ml/kg Route: IV; Rate: bolus; Site: right forearm; sg 11:40 Drug: Albuterol - atroVENT (3:1) (2.5 mg - 0.5 mg) 3 ml Route: Nebulizer; sg Outcome: 13:40 Decision to Hospitalize by Provider. jr8 16:23 Patient left the ED. sg Signatures: Dispatcher [employer] EDMS Nick Booth RN AGUEDA sg Milagros Lopez Irene RN RN Cullen Motley PA PA jr8 Julia Vargas RN RN hb Corrections: (The following items were deleted from the chart) 09:51 09:45 BP 129 / 85; Pulse 110bpm; Resp 20bpm; Pulse Ox 88% RA; Temp 98.3F Temporal; Pain hb 8/10; hb
--- NOTE | 2018-06-29 13:41 | EDPHYS ---
Physician Documentation [facility] Name: Amy Montalvo Age: 62 yrs Sex: Female : 1955 Arrival Date: 06/29/2018 Time: 09:29 Bed 15 Private MD: ED Physician Akira Canales HPI: 06/29 11:04 This 62 yrs old Black Female presents to ER via Wheelchair with complaints of Fever, jr8 Cough, Shortness Of Breath. 11:04 The patient reports fever, with an emergency department temperature of 100.2 degrees jr8 Fahrenheit. Onset: The symptoms/episode began/occurred acutely, today. Modifying factors: there are no obvious modifying factors. Associated signs and symptoms: Pertinent positives: arthralgias, cough, shortness of breath. Severity of symptoms: At their worst the symptoms were moderate in the emergency department the symptoms are unchanged. The patient has not experienced similar symptoms in the past. The patient has not recently seen a physician. Patient stated that she has been feeling under the weather and achy. Stated that she started to have congestion and cough over the past month that has worsened. This morning before iron infusion started to have fever. Was sent to ED at that time for further evaluation . Historical: - Allergies: 09:46 Dilaudid; hb 09:46 Flagyl; hb 09:46 PENICILLINS; hb - Home Meds: 09:46 Actos Oral [Active]; aspirin 81 mg Oral TbEC [Active]; atorvastatin 40 mg Oral tab hb [Active]; Metoprolol Tartrate Oral [Active]; nifedipine 30 mg Oral TbER [Active]; Tresiba FlexTouch U-100 100 unit/mL (3 mL) subcutaneous inpn [Active]; - PMHx: 09:46 Diabetes - NIDDM; Hyperlipidemia; Hypertension; Sleep Apnea; hb - PSHx: 09:46 ; Bowel resection; hb - Immunization history:: Adult Immunizations up to date. - Social history:: Smoking status: Patient/guardian denies using tobacco. - Ebola Screening: : No symptoms or risks identified at this time. ROS: 11:04 Eyes: Negative for injury, pain, redness, and discharge, ENT: Negative for injury, jr8 pain, and discharge, Neck: Negative for injury, pain, and swelling, Cardiovascular: Negative for chest pain, palpitations, and edema, Abdomen/GI: Negative for abdominal pain, nausea, vomiting, diarrhea, and constipation, Back: Negative for injury and pain, MS/Extremity: Negative for injury and deformity, Skin: Negative for injury, rash, and discoloration, Neuro: Negative for headache, weakness, numbness, tingling, and seizure. 11:04 Constitutional: Positive for body aches, chills, fever. 11:04 Respiratory: Positive for cough, shortness of breath. Exam: 11:04 Eyes: Pupils equal round and reactive to light, extra-ocular motions intact. Lids and jr8 lashes normal. Conjunctiva and sclera are non-icteric and not injected. Cornea within normal limits. Periorbital areas with no swelling, redness, or edema. ENT: Nares patent. No nasal discharge, no septal abnormalities noted. Tympanic membranes are normal and external auditory canals are clear. Oropharynx with no redness, swelling, or masses, exudates, or evidence of obstruction, uvula midline. Mucous membranes moist. Neck: Trachea midline, no thyromegaly or masses palpated, and no cervical lymphadenopathy. Supple, full range of motion without nuchal rigidity, or vertebral point tenderness. No Meningismus. Cardiovascular: Regular rate and rhythm with a normal S1 and S2. No gallops, murmurs, or rubs. Normal PMI, no JVD. No pulse deficits. Abdomen/GI: Soft, non-tender, with normal bowel sounds. No distension or tympany. No guarding or rebound. No evidence of tenderness throughout. Back: No spinal tenderness. No costovertebral tenderness. Full range of motion. Skin: Warm, dry with normal turgor. Normal color with no rashes, no lesions, and no evidence of cellulitis. MS/ Extremity: Pulses equal, no cyanosis. Neurovascular intact. Full, normal range of motion. Neuro: Awake and alert, GCS 15, oriented to person, place, time, and situation. Cranial nerves II-XII grossly intact. Motor strength 5/5 in all extremities. Sensory grossly intact. Cerebellar exam normal. Normal gait. 11:04 Respiratory: the patient does not display signs of respiratory distress, Respirations: tachypnea, that is mild, Breath sounds: wheezing: expiratory that is moderate, is heard in the left posterior lower lobe, right posterior middle lobe and right posterior lower lobe. Vital Signs: 09:45 BP 129 / 85; Pulse 110; Resp 20; Temp 100.2(TE); Pulse Ox 88% on R/A; Pain 8/10; hb 10:00 Pulse Ox 90% on R/A; sg 10:00 Pulse Ox 96% on 2 lpm NC; sg 10:00 Weight 97.52 kg; sg 13:40 BP 122 / 80; Pulse 79; Resp 19; Temp 99.2; Pulse Ox 96% on 3 lpm NC; sg MDM: 09:55 Patient medically screened. [facility] 13:39 Data reviewed: vital signs, nurses notes, lab test result(s), EKG, radiologic studies, [facility] CT scan, plain films, and as a result, I will admit patient. Data interpreted: Pulse oximetry: on room air is 88 %. Interpretation: hypoxia. Counseling: I had a detailed discussion with the patient and/or guardian regarding: the historical points, exam findings, and any diagnostic results supporting the discharge/admit diagnosis, lab results, radiology results, the need for further work-up and treatment in the hospital. 06/29 09:55 Order name: Basic Metabolic Panel; Complete Time: 12:11 06/29 09:55 Order name: Blood Culture Adult (2) [facility] 06/29 09:55 Order name: CBC with Diff; Complete Time: 11: [facility] 06/29 09:55 Order name: Ckmb; Complete Time: 12:11 06/29 09:55 Order name: CPK; Complete Time: 12:11 [facility] 06/29 09:55 Order name: Lactate; Complete Time: 11:19 [facility] 06/29 09:55 Order name: LFT's; Complete Time: 12:11 06/29 09:55 Order name: Lipase; Complete Time: 12:11 [facility] 06/29 09:55 Order name: Procalcitonin; Complete Time: 11:19 [facility] 06/29 09:55 Order name: Protime (+inr); Complete Time: 11:03 06/29 09:55 Order name: Ptt, Activated; Complete Time: 11:03 [facility] 06/29 09:55 Order name: Troponin (emerg Dept Use Only); Complete Time: 12:11 [facility] 06/29 09:55 Order name: Urine Microscopic Only; Complete Time: 14:53 [facility] 06/29 09:55 Order name: BNP; Complete Time: 12:11 06/29 09:55 Order name: Chest Single View XRAY; Complete Time: 11:03 [facility] 06/29 09:55 Order name: Accucheck; Complete Time: 10:30 [facility] 06/29 10:13 Order name: Influenza Screen (a \T\ B); Complete Time: 11:19 [facility] 06/29 10:13 Order name: TS; Complete Time: 11:37 [facility] 06/29 11:42 Order name: ABO/RH no charge; Complete Time: 11:43 EDMS 06/29 12:14 Order name: CT Abd/Pelvis - W/Contrast; Complete Time: 13:08 [facility] 06/29 13:39 Order name: Diet Heart Healthy; Complete Time: 13:39 sg 06/29 14:05 Order name: Urine Dipstick--Ancillary (enter results) bd 06/29 14:42 Order name: Diet Clear Liquid; Complete Time: 14:43 sg 06/29 15:51 Order name: Urine Dipstick-Ancillary; Complete Time: 16:05 EDMS 06/29 15:57 Order name: Lactate iw 06/29 09:55 Order name: Cardiac monitoring; Complete Time: 10:30 [facility] 06/29 09:55 Order name: EKG - Nurse/Tech; Complete Time: 13:51 [facility] 06/29 09:55 Order name: IV Saline Lock - Large Bore; Complete Time: 10:30 [facility] 06/29 09:55 Order name: Labs collected and sent; Complete Time: 10:30 [facility] 06/29 09:55 Order name: O2 Per Protocol; Complete Time: 10:30 [facility] 06/29 09:55 Order name: O2 Sat Monitoring; Complete Time: 10:30 [facility] 06/29 09:55 Order name: Urine Dipstick-Ancillary (obtain specimen); Complete Time: 13:50 [facility] Administered Medications: 11:30 Drug: LevaQUIN 500 mg Volume: 100 ml; Route: IVPB; Infused Over: 60 mins; Site: right sg forearm; 11:30 Drug: SOLU-Medrol 125 mg Route: IVP; Site: right forearm; sg 11:40 Drug: Acetaminophen 1000 mg Route: PO; sg 11:40 Drug: NS 0.9% (30 ml/kg) 30 ml/kg Route: IV; Rate: bolus; Site: right forearm; sg 11:40 Drug: Albuterol - atroVENT (3:1) (2.5 mg - 0.5 mg) 3 ml Route: Nebulizer; sg Disposition: 06/30 06:51 Co-signature as Attending Physician, Akira Canales MD I agree with the assessment and starr plan of care. Disposition: 06/29/18 13:40 Hospitalization ordered by Lia Pickett for Inpatient Admission. Preliminary diagnosis are Diverticulitis of large intestine without perforation or abscess without bleeding, Acute bronchitis, Acute respiratory failure with hypoxia, Dehydration. - Bed requested for Telemetry/MedSurg (Inpatient). - Status is Inpatient Admission. sg - Condition is Stable. - Problem is new. - Symptoms have improved. UTI on Admission? No Signatures: Dispatcher [employer] EDMS Melody Sandoval Steven, RN RN Akira Canales MD MD cha Roszak, Josh, PA PA jr Julia Vargas RN RN Corrections: (The following items were deleted from the chart) 06/29 13:50 12:14 Flores ordered. [facility] 15:13 13:40 Hospitalization Ordered by Lia Pickett MD for Inpatient Admission. Preliminary bd diagnosis is Diverticulitis of large intestine without perforation or abscess without bleeding; Acute bronchitis; Acute respiratory failure with hypoxia; Dehydration. Bed requested for Telemetry/MedSurg (Inpatient). Status is Inpatient Admission. Condition is Stable. Problem is new. Symptoms have improved. UTI on Admission? No. jr8 16:23 15:13 06/29/2018 13:40 Hospitalization Ordered by Lia Pickett MD for Inpatient sg Admission. Preliminary diagnosis is Diverticulitis of large intestine without perforation or abscess without bleeding; Acute bronchitis; Acute respiratory failure with hypoxia; Dehydration. Bed requested for Telemetry/MedSurg (Inpatient). Status is Inpatient Admission. Condition is Stable. Problem is new. Symptoms have improved. UTI on Admission? No. bd
[2018-06-29 14:51] LABS: Urine Bacteria <20 /HPF (<20); Urine Culture Reflex Order NOT NEEDED; Urine Mucus 1+ /HPF (NONE SEEN); Urine RBC <5 /HPF (NONE SEEN)
[2018-06-29 15:51] LABS: Urine Blood NEGATIVE (NEG); Urine Glucose NEGATIVE (NEG); Urine Protein 1+ (NEG); Urine Specific Gravity 1.015 (1.005-1.030)
[2018-06-29 16:58] VITALS: BMI 33.1
[2018-06-29] MEDS: NA CHLORIDE 0.9% 1,000 ML IV SCH (17:09)
[2018-06-29] MEDS: INSULIN -REGULAR HUMAN 50 UNIT/0.5 ML ML SQ SCH ×2 (17:09→22:20)
[2018-06-29 18:00] LABS: Urine Appearance CLEAR; Urine Bilirubin NEGATIVE (NEG); Urine Blood NEGATIVE (NEG); Urine Color YELLOW; Urine Glucose 3+ (NEG); Urine Protein TRACE (NEG); Urine Specific Gravity >=1.030 (1.005-1.030); Urine Urobilinogen 0.2 mg/dL (0.2-1.0)
[2018-06-29 18:01] LABS: Urine Microscopic Reflex NO UMIC
--- NOTE | 2018-06-29 18:08 | P.HP ---
Certification for Inpatient Patient admitted to: Inpatient With expected LOS: >2 Midnights Practitioner: I am a practitioner with admitting privileges, knowledge of patient current condition, hospital course, and medical plan of care. Services: Services provided to patient in accordance with Admission requirements found in Title 42 Section 412.3 of the Code of Federal Regulations Patient History Date of Service: 06/29/18 Primary Care Provider: Dr. Cortes Reason for admission: Cough, shortness of breath History of Present Illness: This is a 62-year-old female with history of diabetes mellitus type 2, obstructive sleep apnea, chronic anemia, hypertension presented to the ER with generalized weakness, cough and congestion. Per patient, 2 weeks ago she started feeling weak which has been progressively worsening. Past week and she went to urgent care got something for cough. This did not help her at all. She states that she has appointment on iron infusion today, when they took her temperature she was told that she has a fever she was sent to the ER. She complains of chest soreness with coughing, chest fullness. Also complains of upper back pain which has resolved. She does currently endorse shortness of breath especially with exertion. She denies any headache, vision changes, GI or complaints, dizziness, lightheadedness, syncopal or presyncopal episodes. In the ER, she was found to have a temperature of 100.2, she was 88% on room air. Her labs were remarkable for a creatinine of 1.35, lactic acid elevated to 2.3 and CK was elevated to 292. Her CT abdomen was found to have mild descending diverticulitis while her chest x-ray was clear. At the time of my exam, she was alert oriented x3, looked tired/weak, was 89-90 % on room air, was otherwise hemodynamically stable. Allergies Penicillins Allergy (Mild, Verified 12/28/16 01:03) delusion lisinopril Allergy (Unknown, Verified 06/29/18 17:00) Hives metronidazole [From Flagyl] Allergy (Verified 06/29/18 17:00) Anaphylaxis hydromorphone HCl [From Dilaudid] Adverse Reaction (Mild, Verified 06/29/18 17: 00) Shortness of breath Home Medications: Aspirin Chewable [Aspirin Chewable*] 81 mg PO DAILY 06/06/13 Atorvastatin Calcium [Lipitor] 40 mg PO DAILY 06/06/13 Lisinopril [Prinivil*] 20 mg PO DAILY 06/06/13 Metformin ER [Glucophage ER*] 1,000 mg PO BID 06/06/13 Metoprolol Succinate [Toprol Xl*] 100 mg PO DAILY 06/06/13 Linaclotide [Linzess] 1 tab PO DAILY 06/07/13 Nifedipine [Adalat cc] 30 mg PO DAILY 06/07/13 Dexlansoprazole [Dexilant] 30 mg PO DAILY 12/28/16 Glipizide [Glipizide ER] 2 tab PO DAILY 12/28/16 Liraglutide [Victoza 2-Zaire] 1.8 ml SQ DAILY 12/28/16 Magnesium Oxide [Mag 0X*] 400 mg PO DAILY 12/28/16 levoFLOXacin [Levaquin] 500 mg PO DAILY #7 tab 12/29/16 metroNIDAZOLE [Flagyl] 500 mg PO Q6H #28 tablet 12/29/16 - Past Medical/Surgical History Diabetic: Yes -: sleep apnea -: HTN -: Diverticulitis -: asthma -: COPD -: NIDDM -: hyperlipidemia -: bowel resection -: - Family History Father -: Hypertension, GI disease, Diabetes, Stroke Notes: d Mother -: Other (see notes) Notes: dementia Sister -: Lung disease, Cancer Brother -: Lung disease, Cancer - Social History Smoking Status: Former smoker Alcohol use: No CD- Drugs: No Caffeine use: Yes Place of Residence: Home Review of Systems 10-point ROS is otherwise unremarkable Physical Examination - Vital Signs Temperature: 97.0 F Blood Pressure: 123/60 Pulse: 100 Respirations: 16 Pulse Ox (%): 92 - Physical Exam General: Alert, In no apparent distress, Oriented x3 HEENT: Atraumatic, PERRLA, Mucous membr. moist/pink, EOMI, Sclerae nonicteric Neck: Supple, 2+ carotid pulse no bruit, No LAD, Without JVD or thyroid abnormality Respiratory: Normal air movement, Expiratory wheezes Cardiovascular: Regular rate/rhythm, Normal S1 S2 Gastrointestinal: Normal bowel sounds, No tenderness Musculoskeletal: No tenderness Integumentary: No rashes Neurological: Normal gait, Normal speech, Normal strength at 5/5 x4 extr, Normal tone, Normal affect Lymphatics: No axilla or inguinal lymphadenopathy - Studies Laboratory Data (last 24 hrs) 06/29/18 10:00: PT 11.5, INR 0.97, APTT 26.4 06/29/18 10:00: WBC 7.4, Hgb 11.4 L, Hct 36.8, Plt Count 211 06/29/18 10:00: Sodium 139, Potassium 4.2, BUN 19 H, Creatinine 1.35 H, Glucose 187 H, Total Bilirubin 0.5, AST 29, ALT 32, Alkaline Phosphatase 84, Lipase 40 L Microbiology Data (last 24 hrs): 06/29/18 10:00 Nasopharnyx Influenza Type A Antigen Screen - Final 06/29/18 10:00 Nasopharnyx Influenza Type B Antigen Screen - Final Assessment and Plan - Plan This is a 62-year-old female with: Diverticulitis Keep NPO, IV fluids, IV analgesia as needed IV antibiotics with Levaquin. Patient is allergic to metronidazole. A confirmed this with patient, states that she gets some sort of reaction on her lips from it and would not like to take it. Patient seems to be not compliant with diet. Seem to happen air bread back, states she ate some bread out of it while she was here in the hospital. Explained to her the importance of bowel rest. Bronchitis Dyspnea/hypoxia Cough/congestion Continue IV antibiotics as above Mucinex for congestion Tessalon Perles for cough Repeat chest x-ray if needed versus chest CT if no improvement JAMIN IV fluids Avoid nephrotoxic drugs Recheck a.m. labs Diabetes mellitus type 2, [id number] Accu-Cheks proton by scale insulin Will continue to monitor and adjust as needed Hypertension Stable at this time, will resume home medications once reconciled Generalized weakness Will get physical therapy to evaluate patient History of H. pylori, recently treated with Dr. rodriguez Patient with a recent workup and treatment with Dr. Rodriguez. History of a normal colonoscopy 1 year ago. She was supposed to have an endoscopy tomorrow but she ended up here. She will need to reschedule her appointment with GI as an outpatient for further management/ongoing treatment. Obesity, BMI of 33.1 DVT prophylaxis: Lovenox GI prophylaxis: Protonix Diet: NPO Disposition: Admit to floor with tele, pending symptomatic improvement Discharge Plan: Home - Advance Directives Does patient have a Living Will: No Does patient have a Durable POA for Healthcare: No Time Spent Managing Pts Care (In Minutes): 55
[2018-06-29] MEDS: GUAIFENESIN 600 MG SA TAB PO SCH (21:00)
[2018-06-29] MEDS: KETOROLAC 30 MG/ML INJ IV PRN (22:20)
[2018-06-30] MEDS: NA CHLORIDE 0.9% 1,000 ML IV SCH ×3 (02:46→22:38)
[2018-06-30] MEDS ORDERED: HYDRALAZINE HCL 20 MG/ML VIAL IV PRN (05:21)
[2018-06-30 05:22] LABS: Absolute Monocytes 0.4 K/uL (0.1-1.3); Absolute Neutrophil 2.9 K/uL (1.8-8.0); Basophils % 0.1 % (0-1.3); Eosinophils % 0.1 % (0-4.4); Hematocrit 34.7 % (36.0-45.0); Lymphocytes % 22.9 % (15.3-44.8); MPV 9.2 fL (7.6-11.3); Monocytes % 9.7 % (3.3-12.3); RBC Red Blood Cell Count 4.49 M/uL (3.86-4.86)
[2018-06-30 05:40] LABS: Albumin 3.1 g/dL (3.4-5.0); Bilirubin Total 0.3 mg/dL (0.2-1.0); Magnesium 1.6 mg/dL (1.8-2.4); Phosphorus 3.1 mg/dL (2.5-4.9); Potassium 4.2 mmol/L (3.5-5.1); Protein, Total 7.3 g/dL (6.4-8.2)
[2018-06-30] MEDS ORDERED: MAGNESIUM SULFATE 1 gm IVPB 1 GM/100 ML BAG IV ONE (05:43)
[2018-06-30] MEDS: INSULIN -REGULAR HUMAN 50 UNIT/0.5 ML ML SQ SCH ×4 (07:30→20:55)
[2018-06-30] MEDS: BENZONATATE 100 MG CAP PO PRN ×2 (09:37→21:03)
[2018-06-30] MEDS: GUAIFENESIN 600 MG SA TAB PO SCH ×2 (09:38→21:03)
[2018-06-30] MEDS: ENOXAPARIN 40 MG/0.4 ML SQ SCH (09:38)
[2018-06-30] MEDS: Levofloxacin500mg IV 500 MG/100 ML BAG IV SCH (09:38)
[2018-06-30] MEDS: KETOROLAC 30 MG/ML INJ IV PRN (09:54)
[2018-06-30] MEDS ORDERED: ACETAMINOPHEN 500 MG TAB PO PRN (12:03)
[2018-06-30] MEDS: ALBUTEROL 2.5 MG/3 ML NEB SOL NEB PRN ×2 (12:28→21:05)
[2018-06-30] MEDS ORDERED: GLUCAGON 1 MG/VIAL IM PRN (15:15)
[2018-06-30] MEDS ORDERED: D50W 25 GM/50 ML SYRINGE IV PRN (15:15)
[2018-06-30] MEDS ORDERED: IBUPROFEN 400 MG TAB PO PRN (15:19)
[2018-06-30] MEDS: GLIMEPIRIDE 2 MG TABLET PO SCH (18:03)
[2018-06-30] MEDS: METOPROLOL TAR 50 MG TAB PO SCH (18:09)
--- NOTE | 2018-06-30 20:39 | PN ---
Date of Progress Note: 06/30/2018 Subjective: The patient is seen and examined. Chart reviewed and case discussed with RN. The patie nt still having some abdominal pain. Medications: List reviewed. Physical Examination: Vital Signs: Temperature 97.6, heart rate 102, blood pressure 132/69, respirations 20, and O2 94% on 2 L via nasal cannula. General: Awake, alert, and oriented x3. Some mild distress. Obese female, ill-appearing. CV: S1 and S2. Sinus tachycardia. Peripheral pulses present. Respiratory: Diminished breath sounds. No wheezing or stridor. No use of accessory muscles. Gastrointestinal: Abdomen is soft, nontender, nondistended. Positive bowel sounds. No guarding or rigidity. Extremities: No clubbing, cyanosis, or edema. Neurologic: Nonfocal. Laboratory Data: Sodium 140, potassium 4.2, chloride 106, CO2 29, BUN 16, creatinine 0.92, glucose 1 74, calcium 8.8, phosphorus 3.1, magnesium 1.6. WBC 4.4, H and H 10.9 and 34.7, platelets 191. Bloo d cultures, no growth to date. Influenza screen is negative. Assessment And Plan: A 62-year-old female with: 1.Acute diverticulitis. Continue IV fluids, IV analgesia as needed. Continues antibiotics. The pa tient is allergic to Flagyl. The patient is allergic to Zosyn and penicillin as well. May need to a dd clindamycin. 2.Acute bronchitis with hypoxia. The patient continues to have cough and congestion. We will lynne nue symptomatic treatment with Mucinex for congestion. We will add Robitussin for cough. The patien t currently getting Tessalon Perles. If no improvement we will consider CT of the chest. 3.Acute kidney injury. We will continue with IV fluid hydration. Creatinine has normalized likely due to prerenal azotemia. We will avoid nephrotoxins. 4.Headache. Ibuprofen p.r.n. 5.Essential hypertension. Resume home medications as appropriate. 6.Generalized weakness. Continue PT. 7.History of Helicobacter pylori infection, recently treated by Dr. Rodriguez. She had a colonoscopy a y ear ago and was scheduled for an endoscopy while she is in the hospital. The patient will need to fo llow up with GI as an outpatient to have endoscopy rescheduled. 8.Obesity, BMI 33.1. Plan: Continue IV fluids, IV pain medications. Continue antibiotics. Likely discharge in next 24-4 8 hours depending on clinical response. /ALVARO Voice ID: [id number] Report ID: [id number]
[2018-06-30] MEDS: CLINDAMYCIN INJ 300 MG in NA CHLORIDE 0.9% 50 ML IV SCH ×2 (22:28→23:49)
[2018-07-01] MEDS ORDERED: PANTOPRAZOLE 40MG TABLET PO ONE (01:13)
[2018-07-01] MEDS: CLINDAMYCIN INJ 300 MG in NA CHLORIDE 0.9% 50 ML IV SCH ×3 (05:38→17:53)
[2018-07-01] MEDS: BENZONATATE 100 MG CAP PO PRN (05:43)
[2018-07-01 06:13] LABS: Magnesium 1.7 mg/dL (1.8-2.4)
[2018-07-01] MEDS ORDERED: MAGNESIUM SULFATE 1 gm IVPB 1 GM/100 ML BAG IV ONE (06:17)
[2018-07-01] MEDS: INSULIN -REGULAR HUMAN 50 UNIT/0.5 ML ML SQ SCH ×4 (07:30→20:27)
[2018-07-01] MEDS: NA CHLORIDE 0.9% 1,000 ML IV SCH ×2 (08:38→17:53)
[2018-07-01] MEDS ORDERED: HOME MED 1 EA UNK (Metoprolol Tartrate [Metoprolol Tartrate] 100 MG) PO SCH (09:00)
[2018-07-01] MEDS ORDERED: METOPROLOL TAR 50 MG TAB PO SCH (09:00)
[2018-07-01] MEDS: GUAIFENESIN 600 MG SA TAB PO SCH ×2 (09:59→20:27)
[2018-07-01] MEDS: ENOXAPARIN 40 MG/0.4 ML SQ SCH (09:59)
[2018-07-01] MEDS: METOPROLOL TAR 50 MG TAB PO SCH (09:59)
[2018-07-01] MEDS: GLIMEPIRIDE 2 MG TABLET PO SCH ×2 (09:59→17:53)
[2018-07-01] MEDS: DOCUSATE NA 100 MG CAP PO SCH ×2 (09:59→20:27)
[2018-07-01] MEDS: Levofloxacin500mg IV 500 MG/100 ML BAG IV SCH (10:00)
--- NOTE | 2018-07-01 17:53 | PN ---
Date of Progress Note: 07/01/2018 Subjective: The patient seen and examined, chart reviewed and case discussed with RN. The patient s eems to be doing better today. Cough has improved and cough syrup is helping. The patient still hav ing some mild abdominal pain. Did not get much sleep last night. Medications: List reviewed. Objective: Vital Signs: Temperature 97.4, heart rate 77 blood pressure 166/90, respirations 18, O2 92% on 1 L via nasal cannula. GENERAL: Awake, alert, oriented x3. Ill-appearing female, appears older than stated age. Obese, BM I 33. CV: S1, S2. Regular rate and rhythm. Peripheral pulses present. Respiratory: Moving air well bilaterally. No wheezing or stridor. Some diminished breath sounds at the bases. Gastrointestinal: Abdomen is soft. Tenderness to palpation on the epigastric region. No rebound or guarding. Positive bowel sounds. Extremities: No clubbing, cyanosis, or edema. Neurologic: Nonfocal. Laboratory Data: Sodium 141, potassium 4, chloride 107, CO2 29, BUN 14, creatinine 0.97, glucose 119 , calcium 8.9, magnesium 1.7. Blood culture show no growth to date. Assessment: A 62-year-old female with: 1.Acute diverticulitis. Continue intravenous fluids and intravenous analgesia. Continue antibiotic s. The patient was started on clindamycin for anaerobic coverage. 2.Acute bronchitis with hypoxia, improving. Continue symptomatic treatment. Robitussin added yeste rday. No white count. No fever. Continue to monitor. 3.Acute kidney injury. Creatinine is normalized, likely due to prerenal azotemia. Continue intrave nous fluids. 4.Headache, improved with p.r.n. medications. 5.Essential hypertension, stable. The patient is on metoprolol. 6.Hyperlipidemia, mixed. Continue statin. 7.Generalized weakness. PT eval. 8.History of recent Helicobacter pylori infection treated by Dr. Rodriguez. The patient does follow as a n outpatient. Has had recent scopes. 9.Obesity, body mass index 33.1. 10.Deep vein thrombosis prophylaxis with Lovenox. Plan: PT eval. Advance diet as tolerated. Discharge in a.m. if continues to improve. SA/MODL Voice ID: [id number] Report ID: [id number]
[2018-07-01] MEDS ORDERED: ROSUVASTATIN 10 MG TAB PO SCH (21:00)
[2018-07-02] MEDS: CLINDAMYCIN INJ 300 MG in NA CHLORIDE 0.9% 50 ML IV SCH ×3 (00:18→12:00)
[2018-07-02] MEDS: NA CHLORIDE 0.9% 1,000 ML IV SCH (04:38)
[2018-07-02 06:14] LABS: Magnesium 1.7 mg/dL (1.8-2.4); Potassium 3.8 mmol/L (3.5-5.1)
[2018-07-02] MEDS ORDERED: MAGNESIUM SULFATE 1 gm IVPB 1 GM/100 ML BAG IV ONE (06:18)
[2018-07-02] MEDS ORDERED: PANTOPRAZOLE 40MG TABLET PO SCH (06:30)
[2018-07-02] MEDS: INSULIN -REGULAR HUMAN 50 UNIT/0.5 ML ML SQ SCH ×2 (07:30→11:30)
[2018-07-02] MEDS: METOPROLOL TAR 50 MG TAB PO SCH (08:48)
[2018-07-02] MEDS: DOCUSATE NA 100 MG CAP PO SCH (08:48)
[2018-07-02] MEDS: GLIMEPIRIDE 2 MG TABLET PO SCH (08:48)
[2018-07-02] MEDS: Levofloxacin500mg IV 500 MG/100 ML BAG IV SCH (08:48)
[2018-07-02] MEDS: GUAIFENESIN 600 MG SA TAB PO SCH (08:49)
[2018-07-02] MEDS: ENOXAPARIN 40 MG/0.4 ML SQ SCH (08:49)
[2018-07-02] MEDS ORDERED: FERROUS SULFATE 325 MG TAB PO SCH (09:00)
[2018-07-02] MEDS ORDERED: LINACLOTIDE 290 MG PO SCH (09:00)
[2018-07-02] MEDS ORDERED: HOME MED 1 EA UNK (Dulaglutide [Trulicity] 1.5 MG) SQ SCH (09:00)
[2018-07-02 09:50] VITALS: O2SAT 93
[2018-07-02] MEDS: ALBUTEROL 2.5 MG/3 ML NEB SOL NEB PRN (10:05)
[2018-07-02 12:33] VITALS: BP 149/83; TEMP 97.9
--- NOTE | 2018-07-03 03:40 | DS ---
Date of Discharge: 07/02/2018 Admitting Diagnoses: 1. Acute diverticulitis. 2. Acute bronchitis. 3. Dyspnea, hypoxia. 4. Acute kidney injury. 5. Diabetes mellitus type 2, [id number], with hyperglycemia. 6. Essential hypertension. 7. Generalized weakness. 8. History of H. pylori, recently treated. 9. Obesity, BMI 33.1. Discharge Diagnoses: 1. Acute diverticulitis, resolving. 2. Acute bronchitis with hypoxia. 3. Acute kidney injury, normalized. 4. Headache, resolved. 5. Essential hypertension, stable. 6. Obesity, BMI 33.1. 7. Generalized weakness, improved. The patient is able to ambulate without assist. 8. Mixed hyperlipidemia. 9. History of recent Helicobacter pylori infection treated. The patient follows with GI, outpatient. Hospital Course: The patient is a 62-year-old female with history of diabetes, comes in with generalized weakness, cough, and congestion. The patient had fever, was hypoxic at 88% on room air, elevated lactate and creatinine level. Her CK level was also elevated. The patient was started on IV antibiotics. Cultures were obtained, which showed no growth to date. Influenza screen was negative. The patient's condition improved. Her white count remained normal during the course of the hospital stay. She did have some improvement in her cough and her creatinine level also normalized with IV fluid hydration. Her lactate level initially trended up; however, she did not show signs of sepsis and improved. Regarding her abdominal pain, CT scan showed some mild descending diverticulitis. She has multiple allergies including penicillins, Flagyl with anaphylactic reaction. Therefore, she was started on Levaquin and clindamycin was added for anaerobic coverage. The patient responded well to treatment. Her abdominal pain resolved. She was able to tolerate her diet, which was advanced and she was able to ambulate without assist. She did work with Physical Therapy. The patient was feeling better. She was afebrile. White count was normal and there were no signs of sepsis. Her blood pressure was stable. She was then cleared for discharge and was sent home in a stable condition. Activity: As tolerated. Medications: As per medication reconciliation list. Due to her multiple allergies and risk of C. diff with clindamycin, she will go with Bactrim DS to cover the abdominal infection. Finish off a course for a total of 10 days. Followup: Follow up with primary care physician in 2-3 days. Follow up with GI , Dr. Rodriguez, in 1 week. Return to ER for worsening condition. Diet: Diabetic diet. Physical Examination: General: Awake, alert, oriented. No acute distress. Obese female. CV: S1, S2. No murmurs. Respiratory: Moving air well bilaterally. Abdomen: Soft, nontender, nondistended. Positive bowel sounds. Extremities: No clubbing, cyanosis, or edema. Neurologic: Nonfocal. Total time spent DC pt was 31 minutes SA/ALVARO Voice ID: [id number] Report ID: [id number] NIDA
== END 2018-07-02 14:06 | disposition home or self-care (01) | DRG 392 ==
LOC: ER 09:27 → ERHOLD 13:24 → 2ND 15:55
PROVIDERS: ADMIT Family Medicine; ATTEND Family Medicine
DX: K57.92 Diverticulitis of intestine, part unspecified, without perforation or abscess without bleeding (principal); N17.9 Acute kidney failure, unspecified; J20.9 Acute bronchitis, unspecified; R51 Headache; I10 Essential (primary) hypertension; E66.9 Obesity, unspecified; Z68.33 Body mass index [BMI] 33.0-33.9, adult; E11.9 Type 2 diabetes mellitus without complications; R53.1 Weakness; E78.2 Mixed hyperlipidemia; R09.02 Hypoxemia; Z88.0 Allergy status to penicillin
CPT/HCPCS: 36415; 71045; 74177; 80048; 80053; 80076; 81003; 81015; 82550; 82553; 82962; 83605; 83690; 83735; 83880; 84100; 84145; 84484; 85025; 85610; 85730; 86850; 86900; 86901; 87040; 87804; 94640; 94760; 96374; 96375; 97162; 97164; 99285; J0360; J1650; J2930; J3475; J7030; Q9967

== ENCOUNTER → 2018-10-06 | Day surgery (SDC) | payer OTHER ==
[~2018-10-06] MED LIST: LIDOCAINE 1% MPF 5 ML VIAL ONE; NA CHLORIDE 0.9% 1,000 ML ONE; PROPOFOL 200 MG/20 ML VIAL IV ONE
--- OUTSIDE RECORDS SUMMARY | 2018-10-06 07:35 | XMS REPORT ---
:1955 Author Organization [facility] Address [address] [place] [address] Dr. Carlin [address] [place] [id number] Care Team Providers Name Role Phone Unavailable Unavailable Unavailable Payers Payer Name Policy Type Policy Number Effective Date Expiration Date Problems This patient has no known problems. Allergies, Adverse Reactions, Alerts This patient has no known allergies or adverse reactions. Medications This patient has no known medications.
[2018-10-06 09:50] VITALS: O2SAT 93
[2018-10-06 10:16] VITALS: TEMP 97.8
[2018-10-06 10:28] VITALS: BP 134/81
--- NOTE | 2018-10-06 19:39 | OP ---
Surgeon: Colt Gomez MD Procedure To Be Performed: Esophagogastroduodenoscopy. Indication For Procedure: History of gastric ulcers and H. pylori, dyspepsia. Plan For Anesthesia: Monitored anesthesia care. Complexity: Average. Technique: After obtaining informed consent from the patient explaining risks and complications whic h include, but are not limited to bleeding, infection, perforation, anesthesia complication, patient was placed in a left lateral position and sedation was given. The scope was advanced into the mouth and carefully guided up to the second portion of the duodenum. After the completion of examination, scope and equipment were withdrawn and procedure was terminated in a safe manner. During the procedu re, the patient did have a momentary desaturation to 60%, but rapidly improved with oxygen therapy. The procedure was not excessively prolonged due to this incident in regard to the safety of the patie nt. However, reasonable exam was performed. Esophagus: No gross lesion seen in the upper and mid esophagus. Z-line appeared to be slightly irre gular. Small hiatal hernia was seen. Stomach: Mild patchy erythema was seen in the body and antrum. No ulcers visualized. Biopsies were taken. Also biopsies were taken for H. pylori, culture and sensitivity. Duodenum, the bulb and sec ond portion appeared normal. Complications: None. Tolerance To Anesthesia: Excellent. Postoperative Diagnosis: Small hiatal hernia, gastritis. Plan: 1.Await pathology results. 2.Oral PPI. 3.Follow up at the GI clinic in 2 weeks. US/MODL Voice ID: [id number] Report ID: [id number]
== END ==
LOC: OR 07:31
PROVIDERS: ATTEND Internal Medicine Gastroenterology
PROC: 0DB68ZX Excision of Stomach, Via Natural or Artificial Opening Endoscopic, Diagnostic (ICD-10-PCS; principal; 2018-10-06 09:00)
DX: K29.50 Unspecified chronic gastritis without bleeding (principal); K44.9 Diaphragmatic hernia without obstruction or gangrene; D50.9 Iron deficiency anemia, unspecified; K21.9 Gastro-esophageal reflux disease without esophagitis; E11.9 Type 2 diabetes mellitus without complications; I10 Essential (primary) hypertension; K30 Functional dyspepsia; K74.60 Unspecified cirrhosis of liver; K76.0 Fatty (change of) liver, not elsewhere classified; K59.00 Constipation, unspecified; I85.00 Esophageal varices without bleeding; F17.210 Nicotine dependence, cigarettes, uncomplicated; Z79.84 Long term (current) use of oral hypoglycemic drugs; Z79.899 Other long term (current) drug therapy; E66.9 Obesity, unspecified; Z68.34 Body mass index [BMI] 34.0-34.9, adult
CPT/HCPCS: 82962; 88305; 88312; J2704; J7030

== ENCOUNTER 2019-08-26 03:01 | Inpatient (IN) | payer OTHER ==
[2019-08-26 05:22] LABS: Absolute Lymphocytes (CBC) 2.4 K/uL (0.7-4.9); Basophils % 0.3 % (0-1.3); Hematocrit 33.1 % (36.0-45.0); Lymphocytes % 14.4 % (15.3-44.8); MPV 9.7 fL (7.6-11.3); RBC Red Blood Cell Count 4.27 M/uL (3.86-4.86)
[2019-08-26 05:34] LABS: ALT/SGPT 18 U/L (12-78); AST/SGOT 14 U/L (15-37); Albumin 3.1 g/dL (3.4-5.0); Alkaline Phosphatase 84 U/L (45-117); BUN Blood Urea Nitrogen 19 mg/dL (7-18); Bicarbonate 22 mmol/L (21-32); Bilirubin Direct < 0.1 mg/dL (0-0.2); Bilirubin Total 0.3 mg/dL (0.2-1.0); Glucose Level 253 mg/dL (74-106); Lipase 63 U/L (73-393); Potassium 4.2 mmol/L (3.5-5.1); Protein, Total 7.1 g/dL (6.4-8.2); Sodium Level 139 mmol/L (136-145)
--- NOTE | 2019-08-26 06:18 | ER ---
Nurse's Notes [facility] Name: Amy Montalvo Age: 63 yrs Sex: Female : 1955 Arrival Date: 08/26/2019 Time: 03:02 Bed 20 Private MD: Diagnosis: Gastrointestinal hemorrhage, unspecified Presentation: 08/25 03:19 Chief complaint: Patient states: Woke up at 0100 with abdominal cramping, went to 1 bathroom and had bloody bowel movement; States x3 episodes; has been having generalized abdominal pain x2-3 months; complaint of feeling dizzy and nauseous. Coronavirus screen: Proceed with normal triage. Ebola Screen: No symptoms or risks identified at this time. Initial Sepsis Screen: Does the patient meet any 2 criteria? No. Patient's initial sepsis screen is negative. Does the patient have a suspected source of infection? No. Patient's initial sepsis screen is negative. Risk Assessment: Do you want to hurt yourself or someone else? Patient reports no desire to harm self or others. Onset of symptoms was August 26, 2019 at 01:00. 03:19 Method Of Arrival: Wheelchair lp1 03:19 Acuity: FARIDA 3 lp1 Historical: - Allergies: 03:24 Dilaudid; lp1 03:24 Flagyl; lp1 03:24 PENICILLINS; lp1 - Home Meds: 03:24 Linzess oral oral [Active]; Metoprolol Tartrate Oral [Active]; nifedipine 30 mg Oral lp1 TbER [Active]; Glimepiride Oral [Active]; Metformin Oral [Active]; rosuvastatin oral oral [Active]; aspirin 81 mg Oral TbEC once daily [Active]; - PMHx: 03:24 Diabetes - NIDDM; Hyperlipidemia; Hypertension; Sleep Apnea; Diverticulitis; lp1 - PSHx: 03:24 ; Bowel resection; lp1 - Immunization history:: Adult Immunizations up to date. - Social history:: Smoking status: Patient denies any tobacco usage or history of. Screenin:25 Abuse screen: Denies threats or abuse. Denies injuries from another. Nutritional lp1 screening: No deficits noted. Tuberculosis screening: No symptoms or risk factors identified. Assessment: 03:37 General: Appears in no apparent distress. uncomfortable, Behavior is calm, cooperative, jb4 appropriate for age. Pain: Complains of pain in abdomen Pain does not radiate. Pain currently is 5 out of 10 on a pain scale. Quality of pain is described as It just hurts Pain began 3 months ago, got worse tonight at 1 am Is continuous. Neuro: Level of Consciousness is awake, alert, obeys commands, Oriented to person, place, time, situation. Cardiovascular: Patient's skin is warm and dry. Respiratory: Airway is patent Respiratory effort is even, unlabored, Respiratory pattern is regular, symmetrical. GI: Abdomen is non-distended, obese, Bowel sounds present X 4 quads. Abd is soft X 4 quads Abd is non tender in epigastric area, umbilical area, suprapubic area, left upper quadrant, right lower quadrant and left lower quadrant Abdomen is tender to palpation in right upper quadrant Reports upper abdominal pain, bloody stool, nausea. : No signs and/or symptoms were reported regarding the genitourinary system. EENT: No signs and/or symptoms were reported regarding the EENT system. Derm: Skin is intact, Skin is dry, Skin is pale, Skin temperature is warm. Musculoskeletal: Circulation, motion, and sensation intact. Range of motion: intact in all extremities. 04:20 Reassessment: Patient appears in no apparent distress at this time. Patient and/or jb4 family updated on plan of care and expected duration. Pain level reassessed. Patient is alert, oriented x 3, equal unlabored respirations, skin warm/dry/pink. Pt assisted to restroom, Passed approximately 400 ml of rosalinda red bloody stool. Provider notified. 05:24 Reassessment: Patient appears in no apparent distress at this time. Patient and/or jb4 family updated on plan of care and expected duration. Pain level reassessed. Patient is alert, oriented x 3, equal unlabored respirations, skin warm/dry/pink. 06:30 Reassessment: Patient appears in no apparent distress at this time. Patient and/or jb4 family updated on plan of care and expected duration. Pain level reassessed. Patient is alert, oriented x 3, equal unlabored respirations, skin warm/dry/pink. Hospitalist at the bedside. Vital Signs: 03:19 BP 105 / 64; Pulse 107; Resp 20; Temp 98.3(O); Pulse Ox 95% on R/A; Weight 92.99 kg lp1 (R); Height 5 ft. 7 in. (170.18 cm); Pain 5/10; 05:24 BP 86 / 73; Pulse 107; Resp 16; Pulse Ox 96% on R/A; jb4 05:39 BP 90 / 70 LA (man/); Pulse 108; Resp 16; Pulse Ox 100% ; jb4 06:30 BP 107 / 73; Pulse 97; Resp 20; Pulse Ox 95% on R/A; jb4 03:19 Body Mass Index 32.11 (92.99 kg, 170.18 cm) lp1 05:24 Provider notified of vital signs jb4 ED Course: 03:02 Patient arrived in ED. cl3 03:08 Felix Franco, RN is Primary Nurse. jb4 03:21 Triage completed. lp1 03:21 Arm band placed on. lp1 04:11 Abdominal pain workup initiated per nursing protocol. lp1 05:23 Inserted saline lock: 22 gauge in right forearm, using aseptic technique. lp1 05:43 Andre Correa MD is Attending Physician. mh7 06:16 Mohan Munoz is Hospitalizing Provider. mh7 06:19 CT Abd/Pelvis - IV Contrast Only In Process Unspecified. EDMS 08:15 No provider procedures requiring assistance completed. Patient admitted, IV remains in em place. Administered Medications: 06:10 Not Given (Duplicate Order): NS 0.9% 1000 ml IV at 125 ml/hr continuous jb4 06:10 Not Given (Duplicate Order): NS 0.9% 1000 ml IV at 1000 ml once jb4 06:25 Drug: ProTONIX 80 mg Route: IVP; Site: right forearm; jb4 07:31 Follow up: Response: No adverse reaction em 06:27 Drug: NS 0.9% 1000 ml Route: IV; Rate: 125 ml/hr; Site: right forearm; jb4 08:17 Follow up: IV Status: Infusion continued upon admission em 06:27 Drug: NS 0.9% 1000 ml Route: IV; Rate: 1000 ml; Site: right forearm; jb4 07:31 Follow up: IV Status: Completed infusion; IV Intake: 1000ml em 07:56 Drug: LevaQUIN 500 mg Volume: 100 ml; Route: IVPB; Infused Over: 60 mins; Site: right em forearm; 08:16 Follow up: IV Status: Infusion continued upon admission em Intake: 07:31 IV: 1000ml; Total: 1000ml. em Outcome: 06:17 Decision to Hospitalize by Provider. [facility] 08:15 Admitted to Med/surg accompanied by tech, via wheelchair, room 222, with chart, Report em called to AGUEDA Parker 08:15 Condition: good 08:15 Instructed on the need for admit, Demonstrated understanding of instructions. 08:48 Patient left the ED. em Signatures: Dispatcher [employer] Carmelo Patel RN RN Jayne Hicks RN RN lp1 Felix Franco RN RN sarah beth4 Rebecca Mcintosh cl3 Andre Correa MD MD 7 Corrections: (The following items were deleted from the chart) 05:33 03:37 Derm: Skin is intact, Skin is dry, Skin is normal, Skin temperature is warm jb4 jb4 05:39 05:33 BP 90 / 70 Manual L Arm; Pulse 108bpm; Resp 16bpm; Pulse Ox 100%; jb4 jb4
--- NOTE | 2019-08-26 06:18 | EDPHYS ---
[facility] Name: Amy Montalvo Age: 63 yrs Sex: Female : 1955 Arrival Date: 08/26/2019 Time: 03:02 Bed 20 Private MD: ED Physician Andre Correa HPI: 08/25 05:53 This 63 yrs old Black Female presents to ER via Wheelchair with complaints of Bloody mh7 Stools, Nausea. 05:54 The patient presents to the emergency department with rectal bleeding, a moderate mh7 amount, bright red blood with bowel movement, 2 times since symptom onset. Onset: The symptoms/episode began/occurred today. Abdominal pain: described as achy, intermittent, located in the umbilical area, right upper quadrant and left upper quadrant. Modifying factors: The symptoms are alleviated by nothing, the symptoms are aggravated by nothing. Associated signs and symptoms: Pertinent negatives: anorexia, chest pain, constipation, dizziness at rest, dizziness when standing, fever, shortness of breath, syncope, near-syncope, vomiting. Severity of symptoms: At their worst the symptoms were moderate this morning, in the emergency department the symptoms are unchanged. Patient states that she started having bloody stools this morning. She has also had some intermittent upper abdominal pain and nausea.. Historical: - Allergies: 03:24 Dilaudid; lp1 03:24 Flagyl; lp1 03:24 PENICILLINS; lp1 - Home Meds: 03:24 Linzess oral oral [Active]; Metoprolol Tartrate Oral [Active]; nifedipine 30 mg Oral lp1 TbER [Active]; Glimepiride Oral [Active]; Metformin Oral [Active]; rosuvastatin oral oral [Active]; aspirin 81 mg Oral TbEC once daily [Active]; - PMHx: 03:24 Diabetes - NIDDM; Hyperlipidemia; Hypertension; Sleep Apnea; Diverticulitis; lp1 - PSHx: 03:24 ; Bowel resection; lp1 - Immunization history:: Adult Immunizations up to date. - Social history:: Smoking status: Patient denies any tobacco usage or history of. ROS: 05:54 Constitutional: Negative for fever, chills, and weight loss, Eyes: Negative for injury, mh7 pain, redness, and discharge, ENT: Negative for injury, pain, and discharge, Neck: Negative for injury, pain, and swelling, Cardiovascular: Negative for chest pain, palpitations, and edema, Respiratory: Negative for shortness of breath, cough, wheezing, and pleuritic chest pain, Back: Negative for injury and pain, : Negative for injury, bleeding, discharge, and swelling, MS/Extremity: Negative for injury and deformity, Skin: Negative for injury, rash, and discoloration, Neuro: Negative for headache, weakness, numbness, tingling, and seizure, Psych: Negative for depression, anxiety, suicide ideation, homicidal ideation, and hallucinations, Allergy/Immunology: Negative for hives, rash, and allergies, Endocrine: Negative for neck swelling, polydipsia, polyuria, polyphagia, and marked weight changes, Hematologic/Lymphatic: Negative for swollen nodes, abnormal bleeding, and unusual bruising. Exam: 05:54 Constitutional: This is a well developed, well nourished patient who is awake, alert, mh7 and in no acute distress. Head/Face: Normocephalic, atraumatic. 05:54 ENT: Nares patent. No nasal discharge, no septal abnormalities noted. Tympanic membranes are normal and external auditory canals are clear. Oropharynx with no redness, swelling, or masses, exudates, or evidence of obstruction, uvula midline. Mucous membranes moist. Neck: Trachea midline, no thyromegaly or masses palpated, and no cervical lymphadenopathy. Supple, full range of motion without nuchal rigidity, or vertebral point tenderness. No Meningismus. Chest/axilla: Normal chest wall appearance and motion. Nontender with no deformity. No lesions are appreciated. Cardiovascular: Regular rate and rhythm with a normal S1 and S2. No gallops, murmurs, or rubs. Normal PMI, no JVD. No pulse deficits. Respiratory: Lungs have equal breath sounds bilaterally, clear to auscultation and percussion. No rales, rhonchi or wheezes noted. No increased work of breathing, no retractions or nasal flaring. 05:54 Back: No spinal tenderness. No costovertebral tenderness. Full range of motion. MS/ Extremity: Pulses equal, no cyanosis. Neurovascular intact. Full, normal range of motion. 05:54 Neuro: Awake and alert, GCS 15, oriented to person, place, time, and situation. Cranial nerves II-XII grossly intact. Motor strength 5/5 in all extremities. Sensory grossly intact. Cerebellar exam normal. Normal gait. Psych: Awake, alert, with orientation to person, place and time. Behavior, mood, and affect are within normal limits. 05:54 Eyes: Periorbital structures: appear normal, Pupils: equal, round, and reactive to light and accomodation, Extraocular movements: intact throughout, Conjunctiva: pale, bilaterally, Sclera: no appreciated abnormality. 05:54 Abdomen/GI: Inspection: abdomen appears normal, Bowel sounds: normal, in all quadrants, Palpation: mild abdominal tenderness, in the umbilical area, right upper quadrant and left upper quadrant, Rectal exam: the exam is deferred, because of patient request, Indicators: McBurney's point is not tender, Null's sign is negative, Rovsing's sign is negative, Obturator sign is negative, Psoas sign is negative, Liver: no appreciated palpable abnormalities, Hernia: not appreciated. 05:54 Skin: pale. 06:24 ECG was reviewed by the Attending Physician. [facility] Vital Signs: 03:19 BP 105 / 64; Pulse 107; Resp 20; Temp 98.3(O); Pulse Ox 95% on R/A; Weight 92.99 kg lp1 (R); Height 5 ft. 7 in. (170.18 cm); Pain 5/10; 05:24 BP 86 / 73; Pulse 107; Resp 16; Pulse Ox 96% on R/A; jb4 05:39 BP 90 / 70 LA (man/); Pulse 108; Resp 16; Pulse Ox 100% ; jb4 06:30 BP 107 / 73; Pulse 97; Resp 20; Pulse Ox 95% on R/A; jb4 03:19 Body Mass Index 32.11 (92.99 kg, 170.18 cm) lp1 05:24 Provider notified of vital signs 4 MDM: 05:43 Patient medically screened. [facility] 06:15 Differential diagnosis: gastritis, diverticulitis, hemorrhoids, varices, GI bleed. Data [facility] reviewed: vital signs, nurses notes, lab test result(s), EKG, radiologic studies, CT scan. Data interpreted: Pulse oximetry: on room air is 100 %. Interpretation: normal. 08/25 04:10 Order name: Basic Metabolic Panel; Complete Time: 05:45 lp1 05/14 06:11 Interpretation: CRE 1.40. 7 08/25 04:10 Order name: CBC with Diff 1 08/25 04:10 Order name: Hepatic Function; Complete Time: 05:45 lp1 08/25 04:10 Order name: Lipase; Complete Time: 05:45 1 08/25 05:24 Order name: Type And Screen 4 08/25 06:06 Order name: PT-INR [facility] 08/25 05:44 Order name: CT Abd/Pelvis - IV Contrast Only 1 08/25 06:39 Order name: Manual Differential EDMS 08/25 04:10 Order name: IV Saline Lock; Complete Time: 05:23 lp1 08/25 04:10 Order name: Labs collected and sent; Complete Time: 04:49 lp1 08/25 06:06 Order name: EKG - Nurse/Tech; Complete Time: 06:32 mh7 EC:24 Rate is 96 beats/min. Rhythm is regular. QRS [place] is Normal. SC interval is normal. QRS mh7 interval is normal. QT interval is normal. No Q waves. T waves are Normal. No ST changes noted. Administered Medications: 06:10 Not Given (Duplicate Order): NS 0.9% 1000 ml IV at 125 ml/hr continuous jb4 06:10 Not Given (Duplicate Order): NS 0.9% 1000 ml IV at 1000 ml once jb4 06:25 Drug: ProTONIX 80 mg Route: IVP; Site: right forearm; jb4 07:31 Follow up: Response: No adverse reaction em 06:27 Drug: NS 0.9% 1000 ml Route: IV; Rate: 125 ml/hr; Site: right forearm; jb4 08:17 Follow up: IV Status: Infusion continued upon admission em 06:27 Drug: NS 0.9% 1000 ml Route: IV; Rate: 1000 ml; Site: right forearm; jb4 07:31 Follow up: IV Status: Completed infusion; IV Intake: 1000ml em 07:56 Drug: LevaQUIN 500 mg Volume: 100 ml; Route: IVPB; Infused Over: 60 mins; Site: right em forearm; 08:16 Follow up: IV Status: Infusion continued upon admission em Disposition: 08/26/19 06:17 Hospitalization ordered by Mohan Munoz for Inpatient Admission. Preliminary diagnosis is Gastrointestinal hemorrhage, unspecified. - Bed requested for Telemetry/MedSurg (Inpatient). - Status is Inpatient Admission. em - Condition is Stable. - Problem is new. - Symptoms have improved. Signatures: Dispatcher [employer] EDMS Melody Sandoval Carmelo Richter, RN RN em Jayne Guillaume, RN RN lp1 Felix Franco RN RN jb4 Andre Correa MD MD mh7 Corrections: (The following items were deleted from the chart) 07:19 06:17 Hospitalization Ordered by Mohan Munoz for Inpatient Admission. Preliminary bd diagnosis is Gastrointestinal hemorrhage, unspecified. Bed requested for Telemetry/MedSurg (Inpatient). Status is Inpatient Admission. Condition is Stable. Problem is new. Symptoms have improved. mh7 08:48 07:19 08/26/2019 06:17 Hospitalization Ordered by Mohan Munoz for Inpatient em Admission. Preliminary diagnosis is Gastrointestinal hemorrhage, unspecified. Bed requested for Telemetry/MedSurg (Inpatient). Status is Inpatient Admission. Condition is Stable. Problem is new. Symptoms have improved. bd
[2019-08-26] MEDS ORDERED: NA CHLORIDE 0.9% 2,000 ML ONE (06:22)
[2019-08-26] MEDS ORDERED: PANTOPRAZOLE 40 MG INJ ONE (06:22)
[2019-08-26 06:39] LABS: Blood Morphology Comment NOT SEEN (NOT SEEN); Platelet Estimate ADEQ
[2019-08-26 06:44] LABS: Protime INR 0.98
--- NOTE | 2019-08-26 06:57 | P.HP ---
Certification for Inpatient Patient admitted to: Inpatient With expected LOS: >2 Midnights Practitioner: I am a practitioner with admitting privileges, knowledge of patient current condition, hospital course, and medical plan of care. Services: Services provided to patient in accordance with Admission requirements found in Title 42 Section 412.3 of the Code of Federal Regulations Patient History Date of Service: 08/26/19 Reason for admission: GI bleed History of Present Illness: 63-year-old woman with a history of diabetes mellitus, prior history of diverticulitis presented to the ED with a complaint of bloody stools overnight. Patient reports several bouts of watery bloody stools, both dark colored and fresh blood. She reports associated abdominal pain but no nausea or vomiting or hematemesis. She denies fever. Hemoglobin in the ED is around 10. CT abdomen result is pending. Patient is admitted for further management. Allergies Penicillins Allergy (Mild, Verified 10/06/18 08:26) delusion lisinopril Allergy (Unknown, Verified 10/06/18 08:26) Hives losartan Allergy (Verified 10/06/18 08:26) Hives metronidazole [From Flagyl] Allergy (Verified 10/06/18 08:26) Anaphylaxis hydromorphone HCl [From Dilaudid] Adverse Reaction (Mild, Verified 10/06/18 08:26) Shortness of breath Home Medications: Dulaglutide [Trulicity] 1.5 mg SQ DAILY 06/30/18 Ferrous Sulfate [Iron] 325 mg PO DAILY 06/30/18 Glimepiride [Amaryl*] 2 mg PO BID 06/30/18 Magnesium Oxide [Magnesium] 400 mg PO DAILY 06/30/18 Metformin ER [Glucophage ER*] 1,000 mg PO BID 06/30/18 Metoprolol Tartrate 100 mg PO DAILY 06/30/18 Rosuvastatin [Crestor*] 20 mg PO BEDTIME 06/30/18 Benzonatate [Tessalon Perle*] 100 mg PO TID PRN #20 cap 07/02/18 - Past Medical/Surgical History Diabetic: Yes -: sleep apnea -: HTN -: Diverticulitis -: asthma -: COPD -: NIDDM -: hyperlipidemia -: bowel resection -: - Family History Father -: Hypertension, GI disease, Diabetes, Stroke Notes: d Mother -: Other (see notes) Notes: dementia Sister -: Lung disease, Cancer Brother -: Lung disease, Cancer - Social History Smoking Status: Never smoker Alcohol use: No CD- Drugs: No Caffeine use: Yes Review of Systems Other: Except as documented, all other systems reviewed and negative. Physical Examination - Physical Exam General: Alert, In no apparent distress, Oriented x3 HEENT: Mucous membr. moist/pink, Sclerae nonicteric Neck: Supple, JVD not distended Respiratory: Clear to auscultation bilaterally, Normal air movement Cardiovascular: No edema, Regular rate/rhythm, Normal S1 S2 Capillary refill: <2 Seconds Gastrointestinal: Normal bowel sounds, Soft and benign, Non-distended, No tenderness Musculoskeletal: No swelling, No erythema Integumentary: No rashes, No erythema Neurological: Normal speech, Normal strength at 5/5 x4 extr - Studies Laboratory Data (last 24 hrs) 08/26/19 06:25: PT 11.6, INR 0.98 08/26/19 04:40: WBC 16.6 H, Hgb 10.3 L, Hct 33.1 L, Plt Count 235 08/26/19 04:40: Sodium 139, Potassium 4.2, BUN 19 H, Creatinine 1.40 H, Glucose 253 H, Total Bilirubin 0.3, AST 14 L, ALT 18, Alkaline Phosphatase 84, Lipase 63 L Assessment and Plan - Problems (Diagnosis) (1) GI bleed Current Visit: Yes Status: Acute (2) History of diverticulitis Current Visit: Yes Status: Acute (3) Obstructive sleep apnea Current Visit: Yes Status: Acute (4) Type 2 diabetes mellitus Current Visit: No Status: Acute - Plan Cause of GI bleed is unclear. It could be secondary to diverticulosis given history of diverticulitis. Admit to the medical floor. Hydrate with IV normal saline. IV Protonix given the origin of bleeding is unclear. Keep NPO GI consult Monitor H&H Transfuse p.r.n. for hemoglobin less than 7. Hold metformin. Insulin sliding scale for glucose management. Nocturnal CPAP. - Advance Directives Does patient have a Living Will: No Does patient have a Durable POA for Healthcare: No
[2019-08-26] MEDS ORDERED: Levofloxacin500mg IV 500 MG/100 ML BAG IV ONE (07:43)
[2019-08-26] MEDS ORDERED: ONDANSETRON 4 MG/2 ML VIAL IV PRN (07:54)
[2019-08-26] MEDS ORDERED: NA CHLORIDE 0.9% 250 ML IV SCH (08:00)
[2019-08-26 08:55] VITALS: BMI 32.1
[2019-08-26] MEDS: NA CHLORIDE 0.9% 1,000 ML IV SCH ×2 (08:57→20:41)
[2019-08-26] MEDS: PANTOPRAZOLE 40 MG INJ IVP SCH ×2 (08:57→20:38)
[2019-08-26 09:46] LABS: Hematocrit 29.1 % (36.0-45.0)
[2019-08-26] MEDS ORDERED: CEFTRIAXONE 1 GM/NS 50 ML 1 GM/50 ML BAG IV SCH (09:53)
[2019-08-26] MEDS ORDERED: ERTAPENEM SODIUM 1 GM VIAL IVPB SCH (10:00)
[2019-08-26] MEDS ORDERED: CEFTRIAXONE/SWI 1gm 1 GM/10 ML SYR IV SCH (10:00)
[2019-08-26] MEDS: Meropenem 500 MG in NA CHLORIDE 0.9% 100 ML IV SCH ×2 (11:00→20:37)
--- NOTE | 2019-08-26 11:14 | EKG ---
Test Date: 2019-08-26 Test Time: 06:19:46 Sales Support Specialist: MEASUREMENT RESULTS: Intervals: Rate: 96 CA: 152 QRSD: 76 QT: 370 QTc: 467 [place]: P: 63 CA: 152 QRS: 40 T: 69 INTERPRETIVE STATEMENTS: Normal sinus rhythm Normal ECG Compared to ECG 10/04/2017 21:12:19 Left ventricular hypertrophy no longer present Electronically Signed On 08-26-19 11:13:27 CDT by Partha Walker
--- NOTE | 2019-08-26 11:40 | RAD REPORT ---
EXAM DESCRIPTION: CT ABDOMEN AND PELVIS WITH CONTRAST CLINICAL HISTORY: GI BLEED COMPARISON: 06/29/2018 TECHNIQUE: CT of the abdomen and pelvis performed following IV administration of iodinated contrast. FINDINGS: Lung Bases: Minimal discoid atelectasis in the lingula. Bones: Degenerative change of the spine and hips. Abdomen: Liver: The liver has normal size and density. No intrahepatic biliary dilatation. Gallbladder: No calcified gallstones. Spleen, Pancreas, and Adrenal Glands: The spleen, pancreas, and adrenal glands are unremarkable. Kidneys: No hydronephrosis or obstructing calculus. Vasculature: Aortoiliac atherosclerosis. IVC is unremarkable. The portal vein is patent. The proxim al visceral and renal arteries are patent. Stomach: The stomach and duodenum have normal course. Other: No free intraperitoneal air. No free fluid or lymphadenopathy. Pelvis: Bladder: Urinary bladder is unremarkable. Bowel: Postoperative change of the sigmoid colon. Scattered diverticula throughout the colon. Focal pericolic fat stranding of the ascending colon. No pericolic abscess formation. Appendix: Normal appendix. Pelvis: Uterus is not enlarged. IMPRESSION: 1. Findings compatible mild uncomplicated acute diverticulitis of the ascending colon. This exam was performed according to our departmental dose-optimization program, which includes autom ated exposure control, adjustment of the mA and/or kV according to patient size and/or use of iterati ve reconstruction technique. Electronically signed by: Terrance Cote 08/26/2019 6:31 AM CDT Due to temporary technical issues with the PACS/Fluency reporting system, reports are being signed by the in house radiologist as a courtesy to ensure prompt reporting. The interpreting radiologist is f ully responsible for the content of the report.
[2019-08-26] MEDS ORDERED: INSULIN -REGULAR HUMAN 50 UNIT/0.5 ML ML SQ SCH (12:00)
--- NOTE | 2019-08-26 12:18 | PN ---
Date of Progress Note: 08/26/2019 History: Patient seen and examined. Chart reviewed and case discussed with RN, Dr. Sosa, and Dr. Gomez. Patient complaining of some abdominal pain. Medications: Medication list reviewed. Physical Examination: Vital Signs: Temperature 97, heart rate 96, blood pressure 116/73, respirations 16, O2 96% on room air. General: Awake, alert, oriented x3. Ill-appearing female, obese, elderly. CV: S1, S2. Regular rate and rhythm. Peripheral pulses present. Respiratory: Moving air well bilaterally. No wheezing or stridor. Gastrointestinal: Abdomen is soft, nontender, nondistended. Positive bowel sounds. Extremities: No clubbing, cyanosis, or edema. Neurologic: Nonfocal. Laboratory Data: Creatinine 1.4, WBC 16.6, H and H 9.2 and 29.1, platelets 235. CT scan of the abdomen shows mild uncomplicated acute diverticulitis of the ascending colon. Assessment: 63-year-old female with; 1. Acute diverticulitis. We will add intravenous antibiotics. CT scan has been reviewed. Consult GI and General Surgery. Keep n.p.o. Patient will need scope 6 to 8 weeks down the line once acute diverticulitis has stabilized and inflammation has resolved. 2. Acute gastrointestinal bleed with melena. We will monitor hemoglobin and hematocrit, currently stable. We will transfuse for hemoglobin less than 7. GI has been consulted. We will continue to monitor. Avoid any chemical prophylaxis. Continue on PPI. 3. Acute kidney injury. Creatinine is mildly elevated at 1.4. We will continue IV fluids, consult Nephrology. 4. Obstructive sleep apnea, cont CPAP 5. Diabetes mellitus type 2 [id number]-[id number] with hyperglycemia. We will continue with sliding scale insulin and monitor blood glucose level. Patient to continue her CPAP at night. DVT prophylaxis with SCDs. 6. Obesity, body mass index 32. Plan: Likely discharge in the next 48 to 72 hours depending on clinical response. SA/MODL Voice ID: [id number] Report ID: [id number] MTDD
[2019-08-26 14:20] LABS: Uric Acid 5.5 mg/dL (2.6-6.0)
[2019-08-26 15:06] LABS: Hematocrit 28.8 % (36.0-45.0)
[2019-08-26] MEDS: INSULIN -REGULAR HUMAN 50 UNIT/0.5 ML ML SQ SCH ×2 (16:45→20:37)
[2019-08-26] MEDS: MORPHINE 2 MG/ML SYR IV PRN (17:30)
[2019-08-26 18:15] LABS: Urine Appearance CLEAR; Urine Bilirubin NEGATIVE (NEG); Urine Blood NEGATIVE (NEG); Urine Color YELLOW; Urine Glucose NEGATIVE (NEG); Urine Protein NEGATIVE (NEG); Urine Specific Gravity >=1.030 (1.005-1.030); Urine Urobilinogen 0.2 mg/dL (0.2-1.0)
[2019-08-26 18:52] LABS: Urine Bacteria 20-50 /HPF (<20); Urine Culture Reflex Order REFLEXED; Urine RBC <5 /HPF (NONE SEEN)
[2019-08-26 19:59] LABS: Urine Protein/Creatinine Ratio 0.16 ratio (<0.15)
[2019-08-26 20:50] LABS: Hematocrit 27.3 % (36.0-45.0)
[2019-08-27 05:29] LABS: Absolute Lymphocytes (CBC) 2.3 K/uL (0.7-4.9); Basophils % 0.5 % (0-1.3); Hematocrit 25.5 % (36.0-45.0); Lymphocytes % 33.6 % (15.3-44.8); MPV 8.9 fL (7.6-11.3)
[2019-08-27 05:30] LABS: Protime INR 0.99
[2019-08-27] MEDS: INSULIN -REGULAR HUMAN 50 UNIT/0.5 ML ML SQ SCH ×4 (07:30→20:47)
[2019-08-27] MEDS: NA CHLORIDE 0.9% 1,000 ML IV SCH (08:46)
[2019-08-27] MEDS: PANTOPRAZOLE 40 MG INJ IVP SCH ×2 (08:46→20:46)
[2019-08-27] MEDS: Meropenem 500 MG in NA CHLORIDE 0.9% 100 ML IV SCH ×2 (08:46→20:46)
--- NOTE | 2019-08-27 11:20 | EKG ---
Test Date: 2019-08-27 Test Time: 07:46:05 Branch Lending Manager: [place] MEASUREMENT RESULTS: Intervals: Rate: 100 OK: 160 QRSD: 82 QT: 354 QTc: 456 [place]: P: 63 OK: 160 QRS: 46 T: 65 INTERPRETIVE STATEMENTS: Normal sinus rhythm Normal ECG Compared to ECG 08/26/2019 06:19:46 No significant changes Electronically Signed On 08-27-19 11:20:05 CDT by Partha Walker
[2019-08-27] MEDS: MORPHINE 2 MG/ML SYR IV PRN (12:46)
--- NOTE | 2019-08-27 14:25 | P.CNS ---
Date of Consult: 08/27/19 Reason for Consult: JAMIN Chief Complaint: GI bleed History of Present Illness: 63-year-old AA woman with PMHx of history of diabetes mellitus on metformin , FRANDY Pt presented to ER with bloody BM pt denied NSAID intake , has Hx of diverticulosis in the past , in Er Cr was 1.4, baseline ~1.[address] with contrast has poor po intake , but denied vomiting or diarrhea denied fever , chills , chest pain or palpitation Physical Examination: General: AAOX3, , obeses neck: supple, no elevated JVD Heart: RRR, normal S1,2 no murmur or rub chest CTAB, no rales or wheezes Abdomen: soft , NT ext : no edema JAMIN possibly due to dehydration CT scan no hydro Cont IVF renal dose meds Diverticulitis tolerating diet GI bleeding transfuse to keep Hb >7.0 will order anemia W/U DM on metformin SSI total time spent 45min Allergies Penicillins Allergy (Mild, Verified 10/06/18 08:26) delusion lisinopril Allergy (Unknown, Verified 10/06/18 08:26) Hives losartan Allergy (Verified 10/06/18 08:26) Hives metronidazole [From Flagyl] Allergy (Verified 10/06/18 08:26) Anaphylaxis hydromorphone HCl [From Dilaudid] Adverse Reaction (Mild, Verified 10/06/18 08:26) Shortness of breath Home Medications: Dulaglutide [Trulicity] 1.5 mg SQ EVERY 7TH DAY 06/30/18 Glimepiride [Amaryl*] 2 mg PO BID 06/30/18 Magnesium Oxide [Magnesium] 400 mg PO DAILY 06/30/18 Metformin ER [Glucophage ER*] 1,000 mg PO BID 06/30/18 Metoprolol Tartrate 100 mg PO DAILY 06/30/18 Rosuvastatin [Crestor*] 20 mg PO BEDTIME 06/30/18 Benzonatate [Tessalon Perle*] 100 mg PO TID PRN #20 cap 07/02/18 Ubidecarenone [Co Q-10] 200 mg PO DAILY 08/26/19 - Past Medical/Surgical History Diabetic: Yes -: sleep apnea -: HTN -: Diverticulitis -: asthma -: COPD -: NIDDM -: hyperlipidemia -: bowel resection -: - Family History Father Medical History: Hypertension, GI disease, Diabetes, Stroke Notes: d Mother Medical History: Other (see notes) Notes: dementia Sister Medical History: Lung disease, Cancer Brother Medical History: Lung disease, Cancer - Social History Smoking Status: Former smoker, Never smoker Alcohol use: No CD- Drugs: No Caffeine use: Yes Place of Residence: Home Physical Examination Temp Pulse Resp BP Pulse Ox 97.6 F 92 H 18 144/88 H 98 08/27/19 12:00 08/27/19 12:00 08/27/19 12:46 08/27/19 12:00 08/27/19 12:46
--- NOTE | 2019-08-27 14:31 | PN ---
Date of Progress Note: 08/27/2019 Subjective: Patient seen and examined, chart reviewed, and case discussed with RN. Patient states s he is feeling slightly better. Patient still has some tenderness around the abdomen radiating toward s the flanks bilaterally. Medications: List reviewed. Physical Examination: Vital Signs: Temperature 97.9, heart rate 120, blood pressure 139/82, respirations 18, O2 of 97% on 2 L. General: Awake, alert, oriented x3, in some mild distress. Elderly female, obese, ill-appearing. CV: S1, S2. Sinus tachycardia. Peripheral pulses present. Respiratory: Moving air well bilaterally. No wheezing or stridor. Gastrointestinal: Abdomen is soft. Minimal tenderness to palpation. No flank tenderness. Positive bowel sounds. Extremities: No clubbing, cyanosis, or edema. Neurologic: Nonfocal. Laboratory Data: Blood glucose levels 164. WBC 6.8, H and H 8.2 and 25.5, platelets 193, neutrophil s 54%. Assessment: 63-year-old female with: 1.Acute diverticulitis. Continue IV antibiotics. Appreciate GI input. Dr. Gomez recommends adv ancing to clear liquid. Spoke with Dr. Sosa yesterday, does not recommend any surgical interventi on at this time. Patient will need outpatient colonoscopy in 6-8 weeks once inflammation has resolve d. 2.Acute gastrointestinal bleed with melena. H and H are stable. No need for transfusion at this ti me unless less than 7. Appreciate gastrointestinal input. We will continue PPI. 3.Acute kidney injury. Creatinine mildly elevated. We will repeat BMP in a.m. Continue IV fluids. Avoid NSAIDs. Nephrology on board. 4.Obstructive sleep apnea. Continue CPAP at night. 5.Diabetes mellitus type 2 with hyperglycemia, non-insulin requiring. We will continue with sliding scale insulin and monitor blood glucose levels. Continue CPAP. 6.Obesity, BMI 32. 7.Deep venous thrombosis prophylaxis with SCDs. No chemical anticoagulation due to gastrointestinal bleed. Plan: Likely discharge in the next 24-48 hours depending on clinical response. SA/MODL Voice ID: [id number] Report ID: [id number]
[2019-08-28] MEDS: NA CHLORIDE 0.9% 1,000 ML IV SCH ×2 (00:49→13:20)
[2019-08-28 06:09] LABS: Absolute Lymphocytes (CBC) 2.1 K/uL (0.7-4.9); Basophils % 0.4 % (0-1.3); Hematocrit 25.2 % (36.0-45.0); Lymphocytes % 28.7 % (15.3-44.8); RBC Red Blood Cell Count 3.26 M/uL (3.86-4.86)
[2019-08-28 06:19] LABS: Potassium 3.7 mmol/L (3.5-5.1)
[2019-08-28 06:41] LABS: Ferritin 16.3 ng/mL (8-388); Folic Acid, (Folate) > 20.0 ng/mL (3.1-17.5); Transferrin 226 mg/dL (200-360)
[2019-08-28] MEDS: INSULIN -REGULAR HUMAN 50 UNIT/0.5 ML ML SQ SCH ×4 (07:27→20:57)
[2019-08-28] MEDS: Meropenem 500 MG in NA CHLORIDE 0.9% 100 ML IV SCH ×2 (08:51→20:09)
[2019-08-28] MEDS: PANTOPRAZOLE 40 MG INJ IVP SCH (08:51)
--- NOTE | 2019-08-28 10:56 | PN ---
Date of Progress Note: 08/28/2019 Subjective: Patient seen and examined. Chart reviewed and case discussed with RN. Patient states s he is doing better. Still has some low back pain on the right side. States that she thinks she has not had a bowel movement, although she is on clear liquids, which she is tolerating well. Medications: List reviewed. Physical Examination: Vital Signs: Temperature 98.9, heart rate 85, blood pressure 155/81, respirations 18, O2 97% on 2 L. General: Awake, alert, oriented x3. Obese, elderly female, not in any acute distress. CV: S1, S2. Regular rate and rhythm. Peripheral pulses present. Respiratory: Moving air well bilaterally. No wheezing or stridor. Gastrointestinal: Abdomen is soft. Minimal tenderness to palpation. No guarding or rigidity. Posi tive bowel sounds. Extremities: No clubbing, cyanosis, or edema. Musculoskeletal: Patient has tenderness on the lower back on the right, very minimal. No erythema. Neurologic: Nonfocal. Extremities: No clubbing, cyanosis, or edema. Laboratory Data: Sodium 143, potassium 3.7, chloride 110, CO2 of 28, BUN 6, creatinine 0.8, glucose 148, calcium 8.3. Iron 13, TIBC 316, transferrin 226, ferritin 16.3, vitamin B12 is 728, folate grea ter than 20. WBC 7.4, H and H of 8 and 25.2, platelets 214. Urine culture growing out mixed debra. Assessment: A 63-year-old female with: 1.Acute diverticulitis, improving. Continue IV antibiotics. I will advance to full liquids. We wi ll discuss with GI regarding advancing to GI soft diet later this evening. Patient will need outpati ent colonoscopy once inflammatory stage is resolved. No surgical intervention at this time. 2.Acute gastrointestinal bleed with melena. H and H are stable. Transfuse for hemoglobin less than 7. GI on board. We will continue PPI and switch to oral. Patient has not had any further GI bleed . 3.Acute kidney injury. Creatinine has normalized. We will continue to monitor. Appreciate Nephrol ogy input. We will adjust IV fluids. Avoid NSAIDs. 4.Obstructive sleep apnea. Continue CPAP. 5.Diabetes mellitus type 2 with hyperglycemia, non-insulin requiring. Continue Accu-Cheks and slidi ng scale insulin. 6.Obesity, BMI 32. 7.Deep venous thrombosis prophylaxis with SCDs. No chemical anticoagulation due to GI bleed. Encou rage ambulation. Plan: Discharge patient in the next 24 hours if tolerates GI soft diet and cleared by consultants. MABEL Voice ID: [id number] Report ID: [id number]
[2019-08-28] MEDS: MORPHINE 2 MG/ML SYR IV PRN (11:42)
--- NOTE | 2019-08-28 13:46 | P.PN ---
Subjective Date of Service: 08/28/19 Chief Complaint: GI bleed Subjective: Improving subjective 63-year-old AA woman with PMHx of history of diabetes mellitus on metformin , FRANDY Pt presented to ER with bloody BM pt denied NSAID intake , has Hx of diverticulosis in the past , in Er Cr was 1.4 , baseline ~1.[address] with contrast today no overnight events Cr normalized , will dc IVF tolerating diet will start IV iron Physical Examination: General: AAOX3, , obeses neck: supple, no elevated JVD Heart: RRR, normal S1,2 no murmur or rub chest CTAB, no rales or wheezes Abdomen: soft , NT ext : no edema JAMIN resolved due to dehydration CT scan no hydro dc IVF renal dose meds Diverticulitis tolerating diet GI bleeding transfuse to keep Hb >7.0 low iron stores will start IV iron DM on metformin SSI total time spent 35min Allergies Penicillins Allergy (Mild, Verified 10/06/18 08:26) delusion lisinopril Allergy (Unknown, Verified 10/06/18 08:26) Hives losartan Allergy (Verified 10/06/18 08:26) Hives metronidazole [From Flagyl] Allergy (Verified 10/06/18 08:26) Anaphylaxis hydromorphone HCl [From Dilaudid] Adverse Reaction (Mild, Verified 10/06/18 08:26) Shortness of breath Home Medications: Dulaglutide [Trulicity] 1.5 mg SQ EVERY 7TH DAY 06/30/18 Glimepiride [Amaryl*] 2 mg PO BID 06/30/18 Magnesium Oxide [Magnesium] 400 mg PO DAILY 06/30/18 Metformin ER [Glucophage ER*] 1,000 mg PO BID 06/30/18 Metoprolol Tartrate 100 mg PO DAILY 06/30/18 Rosuvastatin [Crestor*] 20 mg PO BEDTIME 06/30/18 Benzonatate [Tessalon Perle*] 100 mg PO TID PRN #20 cap 07/02/18 Ubidecarenone [Co Q-10] 200 mg PO DAILY 08/26/19 - Past Medical/Surgical History Diabetic: Yes -: sleep apnea -: HTN -: Diverticulitis -: asthma -: COPD -: NIDDM -: hyperlipidemia -: bowel resection -: - Family History Father Medical History: Hypertension, GI disease, Diabetes, Stroke Notes: d Mother Medical History: Other (see notes) Notes: dementia Sister Medical History: Lung disease, Cancer Brother Medical History: Lung disease, Cancer - Social History Smoking Status: Former smoker, Never smoker Alcohol use: No CD- Drugs: No Caffeine use: Yes [facility] - Vital Signs Temperature: 98.2 F Blood Pressure: 143/80 Pulse: 98 Respirations: 18 Pulse Ox (%): 91
[2019-08-28] MEDS: PANTOPRAZOLE 40MG TABLET PO SCH (20:09)
[2019-08-29 06:17] LABS: Potassium 3.7 mmol/L (3.5-5.1)
[2019-08-29 06:25] LABS: Absolute Lymphocytes (CBC) 2.5 K/uL (0.7-4.9); Basophils % 0.5 % (0-1.3); Hematocrit 25.5 % (36.0-45.0); Lymphocytes % 30.4 % (15.3-44.8); MPV 9.3 fL (7.6-11.3); RBC Red Blood Cell Count 3.28 M/uL (3.86-4.86)
[2019-08-29] MEDS ORDERED: METOPROLOL TAR 25 MG TAB PO ONE (08:16)
[2019-08-29] MEDS: INSULIN -REGULAR HUMAN 50 UNIT/0.5 ML ML SQ SCH (08:31)
[2019-08-29] MEDS: PANTOPRAZOLE 40MG TABLET PO SCH (08:31)
[2019-08-29] MEDS: Meropenem 500 MG in NA CHLORIDE 0.9% 100 ML IV SCH (08:32)
[2019-08-29] MEDS ORDERED: SOD FERRIC GLUC COMPLX/SUCROSE 125 MG in NA CHLORIDE 0.9% 100 ML IV SCH (09:00)
[2019-08-29 09:42] VITALS: O2SAT 95
[2019-08-29 10:42] VITALS: BP 158/78; TEMP 98.2
--- NOTE | 2019-08-29 11:18 | DS ---
Date of Discharge: 08/29/2019 Consultants: Dr. Alcantara with Nephrology, Dr. Gomez with GI and Dr. Sosa with General Surger y. Admitting Diagnoses: 1.Acute gastrointestinal bleed. 2.History of diverticulitis. 3.Obstructive sleep apnea. 4.Diabetes mellitus type 2. Discharge Diagnoses: 1.Acute diverticulitis, improving. 2.Acute gastrointestinal bleed with melena, H and H stable. 3.Acute kidney injury, creatinine normalized. 4.Obstructive sleep apnea, on CPAP. 5.Diabetes mellitus type 2 with hyperglycemia [id number], stable. 6.Obesity, BMI 32. Hospital Course: Patient is a 63-year-old female with previous history of diverticulosis and diverti culitis; diabetes, non-insulin dependent; hypertension; hyperlipidemia comes in with abdominal pain a nd GI bleed. She had some bloody stools overnight. Patient's CT scan showed uncomplicated acute div erticulitis of the ascending colon. Patient was kept n.p.o. then slowly initiated on liquid diet whi ch she was able to tolerate. Her WBC count trended down. Her hemoglobin remained stable. She did h ave some drop from 10.3 to 8, however, did not require any transfusions. She did not have any furthe r bloody bowel movements. The patient's electrolyte remained stable. Her iron study showed low iron . She was started on IV iron infusion by Nephrology. Patient did have elevated kidney function, lik leonard due to dehydration. This improved with IV hydration as well. Patient was also seen by Dr. Cristy greenfield with General Surgery. He did not recommend any surgical intervention. Patient's pain improved. She was then able to tolerate a GI soft diet. Dr. Gomez was also consulted with GI. He recommend ed outpatient colonoscopy in 6-8 weeks. Patient was doing well. She was able to tolerate her diet. She was able to ambulate. Her UA did not show any growth. Her abdominal pain resolved. She was th en cleared for discharge. She will need to follow up closely with her primary care physician in the next 2-3 days to a week. Follow up with GI, Dr. Gomez in 2 weeks. Follow up with sales administrator, Byron Tijerina in 2 weeks. Return to ER for worsening condition. Diet: Diabetic. Activity: As tolerated. Medications: As per medication reconciliation list. Patient will finish off course of antibiotics. She has multiple allergies including to penicillin, which is a severe allergy as well as to Flagyl, which causes anaphylaxis and due to her age, we will avoid fluoroquinolones. Therefore, we will send out on Bactrim as an alternatives for another week to complete 10 days of antibiotics. Physical Examination: General: Awake, alert, oriented x3. No acute distress. CV: S1, S2. RESPIRATORY: Moving air well bilaterally. Abdomen: Soft, nontender, nondistended. Positive bowel sounds. Extremities: No clubbing, cyanosis, or edema. Neurologic: Nonfocal. Total time spent discharging patient was 35 minutes. /ALVARO Voice ID: [id number] Report ID: [id number]
== END 2019-08-29 10:43 | disposition home or self-care (01) | DRG 392 ==
LOC: ER 03:01 → ERHOLD 07:00 → 2ND 08:12
PROVIDERS: ADMIT Internal Medicine; ATTEND Family Medicine
DX: K57.32 Diverticulitis of large intestine without perforation or abscess without bleeding (principal); K92.1 Melena; N17.9 Acute kidney failure, unspecified; I10 Essential (primary) hypertension; J44.9 Chronic obstructive pulmonary disease, unspecified; E66.9 Obesity, unspecified; E11.65 Type 2 diabetes mellitus with hyperglycemia; G47.33 Obstructive sleep apnea (adult) (pediatric); E86.0 Dehydration; Z88.1 Allergy status to other antibiotic agents; Z88.5 Allergy status to narcotic agent; Z88.0 Allergy status to penicillin; Z88.8 Allergy status to other drugs, medicaments and biological substances; Z79.84 Long term (current) use of oral hypoglycemic drugs; Z79.899 Other long term (current) drug therapy; Z79.82 Long term (current) use of aspirin; Z68.32 Body mass index [BMI] 32.0-32.9, adult; Z87.891 Personal history of nicotine dependence
CPT/HCPCS: 36415; 74177; 80048; 80076; 81001; 82550; 82570; 82607; 82728; 82746; 82947; 83540; 83690; 84156; 84466; 84550; 85014; 85018; 85025; 85610; 86850; 86900; 86901; 87086; 87088; 93005; 96361; 96365; 96375; 99285; C9113; J0696; J2270; J2916; J7030; Q9967

== ENCOUNTER 2019-09-01 19:42 | Emergency (ER) | payer OTHER ==
--- OUTSIDE RECORDS SUMMARY | 2019-09-01 19:45 | XMS REPORT | Clinical Summary ---
:1955 Author Organization [facility] Address [address] [place] [address] Care Team Providers Name Role Phone Florinda Primary Care Provider Unavailable Allergies Active Allergy Reactions Severity Noted Date Comments Lisinopril Other (See Comments), Swelling 09/08/2017 Losartan Swelling 03/31/2018 Metronidazole Hcl Swelling 06/02/2015 Penicillins Hives 06/02/2015 Medications Medication Sig Dispensed Refills Start End Date Status Date metFORMIN Take 1,000 mg by 0 Act jake (GLUCOPHAGE) 1,000 mouth 2 (two) 9 mg tablet times a day. armodafinil 50 mg Take 2 tablets by 0 Active tablet mouth. 9 ferrous gluconate Take 1 tablet by 1 Active 324 mg (37.5 mg mouth daily. 9 iron) tablet omeprazole Take 40 mg by 1 Activ e (PriLOSEC) 40 MG mouth daily. 9 capsule LINZESS 290 mcg Take 290 mcg by 0 Active capsule mouth daily. 9 magnesium oxide TAKE 2 TABLETS BY 0 Active (MAG-OX) 400 mg MOUTH 4 TIMES 9 (241.3 mg DAILY magnesium) tablet rosuvastatin TAKE 1 TABLET BY 0 Active (CRESTOR) 20 MG MOUTH AT BEDTIME 9 tablet STOP TAKING ATORVASTATIN glimepiride 1 tablet po qAM 0 Ac tive (AMARYL) 4 MG with breakfast, 9 tablet 1/2 tablet po qPM with dinner NIFEdipine CC Take 60 mg by 5 Ac tive (ADALAT CC) 60 MG mouth daily. 9 24 hr tablet mesalamine (LIALDA) Take by mouth 1 Active 1.2 gram EC tablet daily. 9 ergocalciferol TAKE 1 CAPSULE BY 0 Active (VITAMIN D2) 50,000 MOUTH EVERY TWO 9 unit capsule WEEKS WITH FOOD metoprolol Take 100 mg by 0 Acti ve succinate XL mouth daily. (TOPROL-XL) 100 mg 24 hr tablet Folbee 2.5-25-1 mg Take 1 tablet by 30 each 1 Active tabletIndications: mouth once daily 0 Neuropathy, Left arm pain folic acid-vit Take 1 tablet by 90 each 1 08/09/19 Discontinued B6-vit B12 (FOLBEE) mouth daily for 01 01 2.5-25-1 mg 90 days. tabletIndications: Neuropathy, Left arm pain pregabalin (LYRICA) Take 1 capsule 60 capsule 2 04/14 75 MG (75 mg total) by 01 01 capsuleIndications: mouth 2 (two) Neuropathy, Left times a day for arm pain 90 days. Active Problems Not on file Encounters Date Type Specialty Care Team Description 08/07/2019 Refill Neurology Osorio Jung MD Neuropathy; Left arm pain 02/10/2019 Procedure visit Neurology Osorio Jung MD Lumbar ra diculopathy, chronic (Primary Dx); Neuropathy; Left arm pain 02/03/2019 Telephone Neurology Toni Leo MA 01/29/2019 Telephone Neurology Toni Leo MA 01/26/2019 Orders Only Neurology Osorio Jung MD 01/25/2019 Office Visit Neurology Osorio Jung MD Neuropathy ( Primary Dx); Left arm pain after 08/31/2018 Social History Tobacco Use Types Packs/Day Years Used Date Former Smoker Smokeless Tobacco: Never Used Alcohol Use Drinks/Week oz/Week Comments Never Alcohol Habits Answer Date Recorded How often do you have a drink containing alcohol? Never 01/25/2019 How many drinks containing alcohol do you have on a typical Not asked day when you are drinking? How often do you have six or more drinks on one occasion? No t asked Sex Assigned at Date Recorded Not on file Job Start Date Occupation Industry Not on file Not on file Not on file Travel History Travel Start Travel End No recent travel history available. Last Filed Vital Signs Vital Sign Reading Time Taken Comments Blood Pressure 110/60 01/25/2019 1:13 PM CDT Pulse 102 01/25/2019 1:13 PM CDT Temperature - - Respiratory Rate - - Oxygen Saturation - - Inhaled Oxygen Concentration - - Weight 98.9 kg (218 lb) 01/25/2019 1:13 PM CDT Height 170.2 cm (5' 7") 01/25/2019 1:13 PM CDT Body Mass Index 34.14 01/25/2019 1:13 PM CDT Plan of Treatment Health Maintenance Due Date Last Done Comments DIABETIC RETINAL EYE EXAM 1955 DIABETIC FOOT EXAM 1964 URINE MICROALBUMIN 1964 CERVICAL CANCER SCREENING 11/16/1975 BREAST CANCER SCREENING 2004 COLONOSCOPY SCREENING 2004 SHINGLES VACCINES (#1) 2004 INFLUENZA VACCINE 11/13/2019 Procedures Procedure Name Priority Date/Time Associated Comments Diagnosis RPR SCREEN Routine 01/26/2019 3:02 Results for this PM CDT procedure are i n the results section. VITAMIN B1 LEVEL Routine 01/26/2019 3:02 Results for this PM CDT procedure are i n the results section. LACTIC ACID LEVEL Routine 01/26/2019 3:02 Result s for this PM CDT procedure are i n the results section. VITAMIN B12 LEVEL Routine 01/26/2019 3:02 Result s for this PM CDT procedure are i n the results section. THYROID STIMULATING Routine 01/26/2019 3:02 Resu lts for this HORMONE PM CDT procedure are i n the results section. FOLATE LEVEL Routine 01/26/2019 3:02 Results for this PM CDT procedure are i n the results section. BARBARA SCREEN W IFA W Routine 01/26/2019 3:02 Resul ts for this REFLEX TO TITER PM CDT procedure ar e in the results section. SEDIMENTATION RATE Routine 01/26/2019 3:02 Resul ts for this PM CDT procedure are i n the results section. PYRUVIC ACID LEVEL Routine 01/26/2019 3:02 Resul ts for this PM CDT procedure are i n the results section. CREATINE KINASE, TOTAL Routine 01/26/2019 3:02 R esults for this (CPK) PM CDT procedure are i n the results section. after 08/31/2018 Results BARBARA SCREEN W IFA W REFLEX TO TITER (01/26/2019 3:02 PM CDT) Pathologist Sig nature BARBARA screen NEGATIVE NEGATIVE [facility] Comment: [facility] BARBARA IFA is a first line screen for detecting the II presence of up to approximately 150 autoantibodies in various autoimmune diseases. A negative BARBARA IFA result suggests an BARBARA-associated autoimmune disease is not present at this time, but is not definitive. If there is high clinical suspicion for Sjogren's syndrome, testing for anti-SS-A/Ro antibody should be considered . Anti-Marisol-1 antibody should be considered for clinically suspected inflammatory myopathies. AC-0: Negative International Consensus on BARBARA Patterns (https://doi.org/10.1515/hizp-6617-5582) For additional information, please refer to http://education.[employer]/faq/NWN182 (This link is being provided for informational/ educational purposes only.) Specimen Narrative Performed At FASTING:NO [facility] FASTING: NO Resulting Agency Comment Performing Organization Information: Site ID: [id number] [facility]: [facility] Address: [address] [place] [phone] Director: Dr. Devin salvador Performing Organization Address City/State/Zipcode Phone Number [employer] II [address] [place] [phone] Pyruvic acid level (01/26/2019 3:02 PM CDT) Pathologist Sig nature Pyruvic acid 1.34 0.30 - 1.50 mg/dL [facility] Specimen Narrative Performed At FASTING:NO [facility] FASTING: NO Resulting Agency Comment Performing Organization Information: Site ID: NATALIA Name: [employer] Address: [address] [place] [address] Director: Solomon Yeboah M.D.,PhD Performing Organization Address City/[facility]/Zipcode Phone Number [place] [address] [place], [place] [address] [place] RPR screen (01/26/2019 3:02 PM CDT) RPR (monitor) NON-REACTIVE NON-REACTIVE [facility] w/refl titer [place] Specimen Narrative Performed At FASTING:NO Talenta FASTING: NO Resulting Agency Comment Performing Organization Information: Site ID: [id number] [facility]: [facility] Address: [address] [place] [phone] Director: Devin Santoro Performing Organization Address [facility] [place] [address] Sedimentation rate (01/26/2019 3:02 PM CDT) Pathologist Sig nature Sedimentation rate 25 < OR = 30 mm/h [facility] [place] Specimen Narrative Performed At FASTING:NO [facility] FASTING: NO Resulting Agency Comment Performing Organization Information: Site ID: [id number] [facility]: [facility] Address: [address] [place] [phone] Director: Devin Santoro Performing Organization Address [facility] [place] [address] Thyroid stimulating hormone (01/26/2019 3:02 PM CDT) Pathologist Sig nature TSH 0.68 0.40 - 4.50 mIU/L [facility] Specimen Narrative Performed At FASTING:NO [facility] FASTING: NO Resulting Agency Comment Performing Organization Information: Site ID: [facility] Name: [facility] Address: [address] [place] [phone] Director: Devin Santoro Performing Organization Address [facility] [place] [address] Vitamin B1 level (01/26/2019 3:02 PM CDT) Vitamin B1 8 8 - 30 nmol/L [facility] Comment: SHAHRIAR NGUYEN Vitamin supplementation within 24 hours prior to bloo d draw may affect the accuracy of results. This test was developed and its analytical performanc e characteristics have been determined by [employer]. It has not been cleared or approved by FDA. This assay has been validated pursuant to the CLIA regulations an d is used for clinical purposes. Specimen Narrative Performed At FASTING:NO [facility] FASTING: NO Resulting Agency Comment Performing Organization Information: Site ID: [id number] Name: [facility] Address: [address] [place] [address] Director: Manuel Garcia M.D., Ph. D Performing Organization Address City/[facility]/Zipcode Phone Number [place] SHAHRIAR NGUYEN [address] [place], [place] [phone] Lactic acid level (01/26/2019 3:02 PM CDT) Pathologist Sig nature Lactic acid 2.7 (H) 0.4 - 1.8 mmol/L [facility] Specimen Narrative Performed At FASTING:NO [facility] FASTING: NO Resulting Agency Comment Performing Organization Information: Site ID: [id number] Name: [facility] Address: [address] [place] [phone] Director: Dr. Devin salvador Performing Organization Address [facility] Phone Number [place] [phone] Folate level (01/26/2019 3:02 PM CDT) Pathologist Sig nature Folate 12.0 ng/mL [facility] Comment: [place] Reference Rang e Low: <3.4 Borderline: 3.4-5.4 Normal: >5.4 Specimen Narrative Performed At FASTING:NO [facility] FASTING: NO Resulting Agency Comment Performing Organization Information: Site ID: RGA Name: [facility] Address: [address] [place] [phone] Director: Devin Santoro Performing Organization Address [facility] Phone Number [place] [address] [address] Vitamin B12 level (01/26/2019 3:02 PM CDT) Vitamin B12 391 200 - 1,100 [facility] Comment: pg/mL [place] Please Note: Although the reference range for vitamin B12 is 200-1100 pg/mL, it has been reported that betwe en 5 and 10% of patients with values between 200 and 400 pg/mL may experience neuropsychiatric and hematologic abnormalities due to occult B12 deficiency; less than 1% of patients with values above 400 pg/mL will have symp toms. Specimen Narrative Performed At FASTING:NO [facility] FASTING: NO Resulting Agency Comment Performing Organization Information: Site ID: [id number] [facility]: [facility] Address: [address] [place] [phone] Director: Devin Santoro Performing Organization Address City/[facility] Cent[facility] Phone Number [place] [address] [address] Creatine kinase, total (CPK) (01/26/2019 3:02 PM CDT) Pathologist Sig nature Creatine kinase 83 29 - 143 U/L [facility] [place] Specimen Narrative Performed At FASTING:NO [facility] FASTING: NO Resulting Agency Comment Performing Organization Information: Site ID: RGA [facility]: [facility] Sonia cal[facility]rese Address: [address] [place] [phone] Director: Devin Santoro Performing Organization Address [facility] Phone Number [place] [address] [address] after 08/31/2018 Guarantor Name Account Type Relation to Date of Phone Bill ing Patient Address Amy Montalvo Personal/Family Self 1955 [address] (Home) [phone] [place] [address] Advance Directives For more information, please contact: [phone] Type Date Recorded 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
--- OUTSIDE RECORDS SUMMARY | 2019-09-01 19:45 | XMS REPORT ---
:[address] [facility] t Address [address] [place] [address] Dr. [address] [place] [address] Care Team Providers Name Role Phone Florinda Primary Care Physician Unavailable Florinda FERRARO, Isis Attending Clinician Erich FERRARO Attending Clinician Azam FERRARO, Davis Attending Clinician Unavailable Connie FERRARO, T Attending Clinician Doctor Unassigned, Name Attending Clinician Unavailable Ahmet FELIPE Attending Clinician Unavailable Payers Payer Name Policy Type Policy Number Effective Date Expiration Date S eamon AETNAAETNA xxxxxxxxxx 2013 [facility] Religion MC/ECxxxxxxxxxx-PresentH MO Problems This patient has no known problems. Allergies, Adverse Reactions, Alerts Allergy Allergy Status Severity Reaction(s) Onset Inactive Treating Comm ents Source Name Type Date Date Clinician Losartan Propensi Active Swelling 2017-04 [place] to 2-18 [facility] adverse 00:00: st reaction 00 s to drug Lisinopr Propensi Active Other (See [place] ty to Comments), 09-08 Method i adverse Swelling 00:00: st reaction 00 s to drug Metronid Prop[place]i Active Swelling [place] to 2-19 [facility] Hcl adverse 00:00: st reaction 00 s to drug Penicill Propensi Active Hives [place] to 06-02 [facility] adverse 00:00: st reaction 00 s to drug Social History Social Habit Start Date Stop Date Quantity Comments Source History [facility] Alcohol Std Drinks History [facility] Alcohol Binge Sex Assigned At [place] [facility] Alcohol intake 2019-01-25 2019-01-25 Lifetime [place] [facility] 00:00:00 00:00:00 non-drinker (finding) History [facility] 2019-01-25 2019-01-25 1 [place] [facility] Alcohol Frequency 00:00:00 00:00:00 Smoking Status Start Date Stop Date Source Former smoker 2019-01-25 00:00:00 2019-01-25 00:00:00 [place] [facility] Medications Ordered Filled Start Stop Current Ordering Indication Dosage Frequency Signature Comments Components Source Medication Medication Date Date Medication? Clinician (SIG) Name Name Emmanuel Yes Left arm Take 1 [place] 2.5-25-1 mg 4-27 pain tablet by Met hodi tablet 00:00: mouth once st 00 daily metoprolol 2018-04 Yes 100mg QD Take 100 [place] succinate 0-14 mg by Methodi XL 13:15: mouth st (TOPROL-XL) 07 daily. 100 mg 24 hr tablet folic 2018-04 No Left arm 1{tbl} QD Take 1 [place] ston acid-vit 0-14 04-27 pain tablet by Metho di B6-vit B12 00:00: 00:[address] (EMMANUEL) 00 :00 daily for 2.5-25-1 mg 90 days. tablet pregabalin 2018-04- No Left arm 75mg Q.5D Take 1 [place] (LYRICA) 75 0-14 01-12 pain capsule Meth mirian MG capsule 00:00: 23:59 ([address] 00 :00 total) by mouth 2 (two) times a day for 90 days. LINZESS 290 2018-04 Yes 290ug QD Take 290 [place] mcg capsule 0-02 mcg by Method i 00:00: mouth st 00 daily. armodafinil Yes 2{tbl} Take 2 [place] 50 mg 8-28 tablets by Methodi tablet 00:00: mouth. st 00 NIFEdipine 2018- Yes 60mg QD Take 60 mg [place] CC (ADALAT 8-28 by mouth Metho di CC) 60 MG 00:00: daily. st 24 hr 00 tablet ferrous 2018- Yes 1{tbl} QD Take 1 [place] gluconate 8-27 tablet by Metho di 324 mg 00:00: mouth st (37.5 mg 00 daily. iron) tablet mesalamine Yes QD Take by [place] (LIALDA) 8-25 mouth Methodi 1.2 gram EC 00:00: daily. st tablet 00 glimepiride Yes 1 tablet [place] (AMARYL) 4 8-21 po qAM Methodi MG tablet 00:00: with st 00 breakfast, 1/2 tablet po qPM with dinner omeprazole Yes 40mg QD Take 40 mg [place] (PriLOSEC) 7-22 by mouth Metho di 40 MG 00:00: daily. st capsule 00 ergocalcife Yes TAKE 1 [place] rol 6-04 CAPSULE BY [facility]i (VITAMIN 00:00: MOUTH st D2) 50,000 00 EVERY TWO unit WEEKS WITH capsule FOOD magnesium Yes TAKE 2 [place] oxide 4-02 TABLETS BY [facility] (MAG-OX) 00:00: MOUTH 4 st 400 mg 00 TIMES (241.3 mg DAILY magnesium) tablet metFORMIN Yes 1000mg Q.5D Take 1,000 [place] (GLUCOPHAGE 3-06 mg by Methodi ) 1,000 mg 00:00: mouth 2 st tablet 00 (two) times a day. rosuvastati Yes TAKE 1 [place] (CRESTOR) 2-19 TABLET BY hodi 20 MG 00:00: MOUTH AT st tablet 00 BEDTIME STOP TAKING ATORVASTAT IN Vital Signs Vital Name Observation Time Observation Value Comments Source Systolic blood 2019-01-25 13:13:00 110 mm[Hg] Mateus n [facility] pressure Diastolic blood 2019-01-25 13:13:00 60 mm[Hg] [place] on [facility] pressure Heart rate 2019-01-25 13:13:00 102 /min Sunny Underwood Body height 2019-01-25 13:13:00 170.2 cm [place] [facility] Body weight 2019-01-25 13:13:00 98.884 kg Sunny Underwood BMI 2019-01-25 13:13:00 34.14 kg/m2 Sunny Underwood Procedures Procedure Date / Time Performed Performing Clinician [facility] e CREATINE KINASE, TOTAL 2019-01-26 15:02:00 Osorio Jung [place] [facility] (CPK) PYRUVIC ACID LEVEL 2019-01-26 15:02:00 Osorio Jung ethodist SEDIMENTATION RATE 2019-01-26 15:02:00 Osorio Jung ethodist BARBARA SCREEN W IFA W REFLEX 2019-01-26 15:02:00 Osorio Jung mickie Religion TO TITER FOLATE LEVEL 2019-01-26 15:02:00 Osorio Jung [facility] THYROID STIMULATING 2019-01-26 15:02:00 Osorio Jung Religion HORMONE VITAMIN B12 LEVEL 2019-01-26 15:02:00 Osorio Jung [facility] LACTIC ACID LEVEL 2019-01-26 15:02:00 Osorio Jung [facility] VITAMIN B1 LEVEL 2019-01-26 15:02:00 Osorio Jung Met hodist RPR SCREEN 2019-01-26 15:02:00 Osorio Jung Meth odist Plan of Care Planned Activity Planned Date Details Comments Source Future Scheduled 2019-11-13 INFLUENZA VACCINE [place] [facility] Test 00:00:00 [code = INFLUENZA VACCINE] Future Scheduled 2004 BREAST CANCER [place] [facility] Test 00:00:00 SCREENING [code = BREAST CANCER SCREENING] Future Scheduled 2004 COLONOSCOPY SCREENING [place] [facility] Test 00:00:00 [code = COLONOSCOPY SCREENING] Future Scheduled 2004 SHINGLES VACCINES (#1) [place] [facility] Test 00:00:00 [code = SHINGLES VACCINES (#1)] Future Scheduled 1975-11-16 Screening for [facility] thodist Test 00:00:00 malignant neoplasm of cervix (procedure) [code = 192159807] Future Scheduled 1964 DIABETIC FOOT EXAM [place] [facility] Test 00:00:00 [code = DIABETIC FOOT EXAM] Future Scheduled 1964 URINE MICROALBUMIN [place] [facility] Test 00:00:00 [code = URINE MICROALBUMIN] Future Scheduled 1954 DIABETIC RETINAL EYE Dixie gleason [facility] Test 00:00:00 EXAM [code = DIABETIC RETINAL EYE EXAM] Encounters Start End Encounter Admission Attending Care Care Encounter Source Date/Time Date/Time Type Type Clinicians Facility Department ID 2019-08-31 2019-08-31 [place] [email or web address] [id number] 00:00:00 00:00:00 [facility] [id number] [place] [id number] Professio [phone] [place] [address] Office [facility] 2019-08-16 2019-08-16 [place] [email or web address] [id number] [id number] 00:00:00 00:00:00 [facility] [id number] [place] [id number] Professio [phone] [place] [address] Office [facility] 2019-08-16 2019-08-16 [email or web address] 1.2.840.114 [id number] 00:00:00 00:00:00 [facility] A [place] [id number] [place] [id number] Professio [phone] [address] 2019-08-07 2019-08-07 Abelardo Nascimento [facility] 1.2.840.114 [id number] 00:00:00 00:00:00 Davina [place] [id number] [place] Yeso 4.2.7.2.686 Professio [phone] [address] 2019-07-28 2019-07-28 [place] [email or web address] 1.2.840.114 [id number] 00:00:00 00:00:00 [facility] [id number] [place] 4.2.7.2.686 Professio [phone] [place] [address] Office [facility] 2019-07-12 2019-07-12 [place] [email or web address] 1.2.840.114 [id number] 00:00:00 00:00:00 Keyon[place] T [place] [id number] [place] 4.2.7.2.686 Professio [phone] [address] 2019-07-09 2019-07-09 [email or web address] 1.2.840.114 [id number] 07:12:02 07:27:02 ne Visit [facility] [id number] [place] [id number] Professio [phone] [place] [address] Office Building [facility] 2019-06-30 2019-06-30 Ref[email or web address] 1.2.840.114 [id number] 00:00:00 00:00:00 [facility] [id number] [place] [id number] Professio [phone] [place] [address] Office Building [facility] 2019-06-16 2019-06-16 Telephone [facility] 1.2.840.114 [id number] 00:00:00 00:00:00 [facility] [id number] [place] 4.2.7.2.686 Professio [phone] [place] [address] Office Building [facility] 2019-06-14 2019-06-14 [facility] 1.2.840.114 [id number] 00:00:00 00:00:00 [facility] [id number] [place] 4.2.7.2.686 Professio [phone] [place] [address] Office Building [facility] 2019-06-11 2019-06-11 Office [facility] 1.2.840.114 [id number] 11:15:43 11:54:57 Visit [facility] [id number] [place] [id number] Professio [phone] [place] [address] Office Building [facility] 2019-06-11 2019-06-11 [facility] 1.2.840.114 [id number] 00:00:00 00:00:00 [facility] [id number] [place] [id number] Professio [phone] [place] [address] Office Building [facility] 2019-06-09 2019-06-09 Orders Doctor UYEN 12.840.114 [id number] 00:00:00 00:00:00 Only Unassigned, FLASH 350.1.13.10 [facility] 4.2.7.2.686 [id number] [id number] Results Test Description Test Time Test Comments Results Result Comments Source Creatine kinase, total (CPK) 2019-02-02 10:15:00 Test Item Value Reference Range Interpretation Comme nts Creatine kinase (test code = 83 U/L 29-143 2157-6) MARIE (test code = MARIE) FASTING:NOFASTING: NO RAC (test code = RAC) Performing Organization Information: Site ID: YAKELIN Name: [facility] Address: [address] [place] [address] Director: Devin Santoro [place] ReligionVitamin B12 [id number] 10:15:00 Test Item Value Reference Interpretation Comments Range Vitamin B12 391 pg/mL 200-1100 Please Note: A lthough the (test code = reference range for 2131-12) [id number] is 2 00-1100 pg/mL, it has b een reported that between5 a nd 10% of patients with v alues between 200 and 400pg/m L may experience neur opsychiatric and hematologic abnormalities due to occult B 12 deficiency; les s than 1%of patients with v alues above 400 pg/mL will have symptoms. MARIE (test FASTING:NOFASTING code = MARIE) : NO RAC (test Performing code = RAC) Organization Information: Site ID: YAKELIN [facility] Address: [address] [place] [address] Director: Devin UnderwoodFolate [id number] 10:15:00 Test Item Value Reference Range Interpretation Comments Folate (test 12.0 ng/mL code = 2284-8) Refer ence Range Lo w: <3.4 Borderline: 3.4-5.4 Normal: >5.4 MARIE (test code FASTING:NOFASTING: NO = MARIE) RAC (test code Performing = RAC) Organization Information: Site ID: YAKELIN Name: [facility] Address: [address] [place] [address] Director: Devin Santoro [place] KaterynaistLactic acid [id number] 10:15:00 Test Item Value Reference Range Interpretation Comments Lactic acid (test code = 2.7 mmol/L 0.4-1.8 H 50001-2) MARIE (test code = MARIE) FASTING:NOFASTING: NO RAC (test code = RAC) Performing Organization Information: Site ID: IG Name: [facility] Address: [address] [place] [address] Director: Dr. Devin Santoro Lab Interpretation (test Abnormal code = 38715-4) [place] MethodistVitamin B1 [id number] 10:15:00 Test Item Value Reference Range Interpretation Comments Vitamin B1 8 nmol/L 8-30 Vitamin (test code = supplementation 56380-2) within 24 hours prior to blood draw m ay affect the accu racy of results. Th is test was develo ped and its analyti akash performance characteristics have been determined by [facility] [employer] myriam Nguyen. It valladares s not been cleared or approved by FDA . This assay has been validated pursu ant to the CLIA regula tions and is used for clinical purpos es. MARIE (test code FASTING:NOFASTING: = MARIE) NO RAC (test code Performing = RAC) Organization Information: Site ID: SLI Name: [facility] Address: [address] [place] [address] Director: Manuel Garcia M.D., Ph.D [place] MethodistThyroid stimulating [id number] 10:15:00 Test Item Value Reference Range Interpretation Comments TSH (test code = 0.68 0.40- 4.50 mIU/L 3016-3) MARIE (test code = FASTING:NOFASTING: NO MARIE) RAC (test code = Performing Organization RAC) Information: Site ID: RGA Name: [facility] Address: [address] [place] [address] Director: Devin Santoro [place] MethodistSedimentation [id number] 10:15:00 Test Item Value Reference Range Interpretation Comments Sedimentation rate 25 mm/h < OR = 30 (test code = 4537-7) MARIE (test code = MARIE) FASTING:NOFASTING: NO RAC (test code = RAC) Performing Organization Information: Site ID: RGA Name: [facility] Address: [address] [place] [address] Director: Devin Santoro [place] MethodistRPR [id number] 10:15:00 Test Item Value Reference Range Interpretation Comments RPR (monitor) NON-REACTIVE NON-REACTIVE w/refl titer (test code = 62817-6) MARIE (test code = FASTING:NOFASTING: NO MARIE) RAC (test code = Performing Organization RAC) Information: Site ID: RGA Name: [facility] Address: [address] [place] [phone] Director: Devin Mccarthyridge [place] MethodistPyruvic acid [id number] 10:15:00 Test Item Value Reference Range Interpretation Comments Pyruvic acid (test 1.34 mg/dL 0.3-1.5 code = 2905-8) MARIE (test code = FASTING:NOFASTING: NO MARIE) RAC (test code = Performing Organization RAC) Information: Site ID: AMD Name: [facility] Address: [address] [place] [address] Director: Solomon Yeboah M.D.,PhD [place] MethodistANA SCREEN W IFA W REFLEX TO [id number] 10:15:00 Test Item Value Reference Range Interpretation Comments BARBARA screen NEGATIVE NEGATIVE BARBARA IFA is a fi rst line (test code = screen for dete cting 26999-1) thepresence of up to approximately 1 50 autoantibodies invarious autoimmune dise ases. A negative BARBARA IF A resultsuggests an BARBARA-associated autoimmune disease is notp resent at this time, but is not definitive. If thereis high clinical s uspicion for Sjogren's syndrome,testin g for anti-SS-A/Ro an tibody should be considered.Anti -Marisol-1 antibody should be considered for clinicallysuspe cted inflammatory my opathies. AC-0: Negative International C onsensus on BARBARA Patterns(https: //doi.org/ 10.1515/cclm-20 ) For additional information, pl ease refer tohttp://educat ion.[employer]/ faq/FKE972 (This link is b eing provided for informational/e ducational purposes only.) MARIE (test FASTING:NOFASTING: code = MARIE) NO RAC (test Performing code = RAC) Organization Information: Site ID: IG Name: [facility] Address: [address] [place] [address] Director: Dr. Devin Underwood
--- OUTSIDE RECORDS SUMMARY | 2019-09-01 19:46 | XMS REPORT | Summary of Care ---
:1955 Author Organization [facility] Address [address] [place] [address] Care Team Providers Name Role Phone Isis Neely MD Primary Care Provider Reason for Visit Reason Comments Results Encounter Details Date Type Department Care Team Description 11/06/2018 Telephone [facility] Family Medicine Rosalina Cherry MD Results - [address] [facility] [place] [address] [place] [address] [phone] Allergies Active Allergy Reactions Severity Noted Date Comments Hydromorphone (Bulk) Hallucinations 02/02/2018 Metronidazole Hcl Swelling 06/02/2015 Lisinopril Swelling, Cough 09/08/2017 Losartan Swelling 03/31/2018 Penicillins Hives 06/02/2015 documented as of this encounter (statuses as of 11/06/2018) Medications Medication Sig Dispensed Refills Start End Date Status Date aspirin 81 mg EC tablet Take 81 mg by 0 Active mouth daily. albuterol 90 Inhale 2 Puffs 8.5 g 1 Ac tive mcg/actuation inhaler every 6 (six) 7 hours as needed for Wheezing or Shortness of Breath. vitamin B-12 (VITAMIN Take 1 tablet by 90 tablet 1 Active B-12) 500 mcg tablet mouth daily. 8 vitamin B-6 (VITAMIN B-6) Take 1 tablet by 90 tablet 1 01 Active 100 mg tablet mouth daily. 8 tiZANidine 2 mg tablet Take 0.5-1 30 tablet 0 Active tablets by mouth 8 every 8 (eight) hours as needed (muscle pain or spasm). Blood-Glucose Meter Use as directed, 1 Kit 0 Active (ONETOUCH VERIO IQ METER) DX:E11.9 8 Kit Insulin [place], Use as directed, 100 Each 1 Active Disposable, (CAREFINE PEN once daily, 8 NEEDLE) 32 gauge x 5/32" DX:E11.9 Ndle coenzyme Q10 (COQ-10) 100 Take 1 capsule by 0 Active mg softgel mouth daily. 8 albuterol 90 2 puffs with 1 Inhaler 1 Acti ve mcg/actuation spacer 4 times a 9 inhalerIndications: day for at least Bronchospasm 7 days inhalational spacing May substitute 1 Each 0 Active deviceIndications: other spacing 9 Bronchospasm device acetaminophen-codeine 1/2 - 1 tab Every 15 tablet 0 Active 300-30 mg 4hrs as needed 9 tabletIndications: Cough for pain or cough requiring narcotic albuterol 2.5 mg /3 mL Inhale 3 mL every 120 Vial 0 Active (0.083 %) nebulizer 4 (four) hours as 9 solutionIndications: needed for Chronic obstructive Wheezing or pulmonary disease, Shortness of unspecified COPD type Breath. Via nebulizer ROSUVASTATIN 20 mg TAKE 1 TABLET BY 90 tablet 1 Active tabletIndications: MOUTH AT BEDTIME 9 Hypercholesterolemia STOP TAKING ATORVASTATIN glimepiride 4 mg glimepiride 4 mg tablet 180 tablet 1 06/18/19 1 Active tabletIndications: Type 2 2 tablet daily 9 diabetes mellitus with diabetic nephropathy, with long-term current use of insulin dulaglutide (TRULICITY) inject 1.5 mg 12 Syringe 3 Active 1.5 mg/0.5 mL under the skin 9 PnIjIndications: Type 2 weekly. diabetes mellitus with diabetic nephropathy, with long-term current use of insulin metFORMIN 1,000 mg Take 1 tablet by 180 tablet 3 Active tabletIndications: Type 2 mouth 2 (two) 9 diabetes mellitus with times daily with diabetic nephropathy, meals. with long-term current use of insulin blood sugar diagnostic Use as directed. 100 Strip 3 Active stripIndications: Type 2 E11.21. Check 9 diabetes mellitus with once daily diabetic nephropathy, with long-term current use of insulin lancets 33 gauge Use as directed. 100 Each 3 Active MiscIndications: Type 2 E11.21. Check 9 diabetes mellitus with once daily diabetic nephropathy, with long-term current use of insulin fluticasone-vilanterol Inhale 1 Puff 1 Each 5 Active (BREO ELLIPTA) 100-25 daily. Rinse 9 mcg/dose DsDvIndications: mouth after each Moderate persistent use. asthma with acute exacerbation magnesium oxide 400 mg TAKE 2 TABLETS BY 240 tablet 5 07/15/19 1 Active (241.3 mg magnesium) MOUTH 4 TIMES 9 tabletIndications: DAILY Hypomagnesemia FERROUS GLUCONATE 324 mg TAKE 1 TABLET BY 90 tablet 1 09/02/19 1 Active (37.5 mg iron) MOUTH ONCE DAILY 9 tabletIndications: Iron deficiency VITAMIN D2 50,000 unit TAKE 1 CAPSULE BY 6 capsule 1 Active capsuleIndications: MOUTH EVERY TWO 9 Vitamin D deficiency WEEKS WITH FOOD metoprolol succinate XL Take 1 tablet by 90 tablet 1 Active 50 mg 24 hr mouth daily. 9 tabletIndications: Essential hypertension Armodafinil 50 mg Take 1 tablet by 30 tablet 0 Active TabIndications: mouth every 9 Uncontrolled daytime morning. somnolence, FRANDY (obstructive sleep apnea) NIFEdipine ER 60 mg SR TAKE 1 TABLET BY 30 tablet 5 Active tabletIndications: MOUTH ONCE DAILY 9 Essential hypertension omeprazole 40 mg capsule 0 Active 9 mesalamine 1.2 gram EC 1 Active tablet 9 MOVANTIK 25 mg Tab TAKE 1 TABLET BY 1 Active MOUTH ONCE DAILY 9 documented as of this encounter (statuses as of 11/06/2018) Active Problems Problem Noted Date Uncontrolled daytime somnolence 10/14/2018 Nonobstructive atherosclerosis of coronary artery 0 06/2018 Intolerance of continuous positive airway pressure (CP AP) ventilation 10/14/2018 COPD with acute exacerbation 02/02/2018 FRANDY (obstructive sleep apnea) 01/19/2018 SOTO (dyspnea on exertion) 01/18/2018 Chest pain 01/17/2018 Multiple thyroid nodules 10/06/2017 Left shoulder pain, unspecified chronicity 10/05/2017 Osteoarthritis of left shoulder 10/03/2017 Neck pain 07/28/2017 Chronic antral gastritis 05/08/2017 Esophageal varices 05/08/2017 Osteoarthritis 01/30/2017 Immunization counseling 01/23/2017 Blurry vision, left eye 01/23/2017 Sicca, unspecified type 01/23/2017 Vitamin B6 deficiency 01/18/2017 Iron deficiency 01/16/2017 B12 deficiency 01/16/2017 Elevated sed rate 01/16/2017 Temporal headache 01/16/2017 Abdominal adhesions 12/06/2016 Chronic abdominal pain 12/06/2016 Constipation, unspecified constipation type 12/06/[address] scan 12/06/2016 Obesity (BMI 30-39.9) 08/06/2016 Pneumonia 08/06/2016 Vitamin D deficiency 07/18/2016 Hypocalcemia 07/13/2016 Hypomagnesemia 07/13/2016 Severe obstructive sleep apnea 06/19/2016 Chronic constipation 05/19/2016 HLD (hyperlipidemia) 05/19/2016 GERD (gastroesophageal reflux disease) 05/18/2016 Uncontrolled type 2 diabetes mellitus without complica tion, without 05/15/2016 long-term current use of insulin Essential hypertension 05/15/2016 documented as of this encounter (statuses as of 11/06/2018) Immunizations Name Administration Dates Next Due Influenza Virus Vaccine Quad .5 mL IM 6+ MO 02/07/2018 Pneumococcal Polysaccharide, PPSV23 (PNEUMOVAX) 02/07/2018 documented as of this encounter Social History Tobacco Use Types Packs/Day Years Used Date Former Smoker 1 20 Smokeless Tobacco: Never Used Comments: Quit about 25 years ago Alcohol Use Drinks/Week oz/Week Comments No 0 Standard drinks or equivalent 0.0 Sex Assigned at Date Recorded Not on file Job Start Date Occupation Industry Not on file Not on file Not on file Travel History Travel Start Travel End No recent travel history available. documented as of this encounter Last Filed Vital Signs Not on filedocumented in this encounter Plan of Treatment Health Maintenance Due Date Last Done Comments HEPATITIS C (HCV) SCREEN 1955 EYE EXAM 1965 DTaP,Tdap,and Td Vaccines (1 - 1973 Tdap) PAP SMEAR 11/16/1975 MAMMOGRAM 1994 Zoster Recombinant Vaccine 2004 (SHINGRIX) (1 of 2) URINE MICROALBUMIN 02/12/2018 02/12/2017 LDL-C 06/26/2018 06/26/2017, 02/12/2017 INFLUENZA VACCINE 12/13/2018 02/07/2018 HgA1C 12/18/2018 06/17/2018, 01/18/2018, 10/21/2017, Additional history exists LUNG CANCER SCREEN: Recommended 02/03/2019 02/03/2018, 0806/2017, for age 55-80 with 30 + pack year 11/14/2016 history FOOT EXAM 06/18/2019 06/17/2018, 06/17/2018, 09/10/2017, Additional history exists CREATININE (SERUM) 10/30/2019 10/29/2018, 09/10/2018, 09/02/2018, Additional history exists COLONOSCOPY 02/25/2027 02/25/2017 PNEUMOCOCCAL 0-64 YEARS COMBINED Completed 02/07/2018 SERIES documented as of this encounter Results Not on filedocumented in this encounter Insurance Payer Benefit Plan / Group Subscriber ID Effective Dates Phone Address Type [employer]ETNA A[employer] T[employer] CARE [id number] 2013-Present PPO documented as of this encounter
--- OUTSIDE RECORDS SUMMARY | 2019-09-01 19:46 | XMS REPORT | Summary of Care ---
:1955 Author Organization [facility] Address [address] [place] [address] Care Team Providers Name Role Phone Isis Neely MD Primary Care Provider Reason for Visit Reason Comments Orders Encounter Details Date Type Department Care Team Description 11/09/2018 Telephone [facility] Family Medicine Rosalina Cherry MD Orders - [address] [facility] [place] [address] [place] [address] [phone] Allergies Active Allergy Reactions Severity Noted Date Comments Hydromorphone (Bulk) Hallucinations 02/02/2018 Metronidazole Hcl Swelling 06/02/2015 Lisinopril Swelling, Cough 09/08/2017 Losartan Swelling 03/31/2018 Penicillins Hives 06/02/2015 documented as of this encounter (statuses as of 11/09/2018) Medications Medication Sig Dispensed Refills Start End [...] VERIO IQ METER) DX:E11.9 8 Kit Insulin [place], Use as directed, 100 Each 1 Active [...] as of this encounter (statuses as of 11/09/2018) Active Problems Problem Noted Date Uncontrolled daytime [...] as of this encounter (statuses as of 11/09/2018) Immunizations Name Administration Dates Next Due Influenza [...] filedocumented in this encounter Plan of Treatment Name Type Priority Associated Diagnoses Order S chedule POTASSIUM SERUM LAB Routine Hyperkalemia 1 Occurrence s starting 11/09/2018 until 9 Health Maintenance Due Date Last Done Comments HEPATITIS C (HCV) SCREEN 1955 EYE EXAM 1965 DTaP,Tdap,and Td Vaccines (1 - 1973 Tdap) PAP SMEAR 11/16/1975 MAMMOGRAM 1994 Zoster Recombinant Vaccine 2004 (SHINGRIX) (1 of 2) URINE MICROALBUMIN 02/12/2018 02/12/2017 LDL-C 06/26/2018 06/26/2017, 02/12/2017 INFLUENZA VACCINE 12/13/2018 02/07/2018 HgA1C 12/18/2018 06/17/2018, 01/18/2018, 10/21/2017, Additional history exists LUNG CANCER SCREEN: Recommended 02/03/2019 02/03/2018, 06/2017, for age 55-80 with 30 + pack year 11/14/2016 history FOOT EXAM 06/18/2019 06/17/2018, 06/17/2018, 09/10/2017, Additional history exists CREATININE (SERUM) 10/30/2019 10/29/2018, 09/10/2018, 09/02/2018, Additional history exists COLONOSCOPY 02/25/2027 02/25/2017 PNEUMOCOCCAL 0-64 YEARS COMBINED Completed 02/07/2018 SERIES documented as of this encounter Results Not on filedocumented in this encounter Visit Diagnoses Diagnosis Hyperkalemia - Primary Hyperpotassemia documented in this encounter Insurance Payer Benefit Plan / Group Subscriber ID Effective Dates Phone Address Type [employer] [facility] C[facility] [id number] 2013-Present PPO documented as of this encounter
--- OUTSIDE RECORDS SUMMARY | 2019-09-01 19:47 | XMS REPORT | Summary of Care ---
:1955 Author Organization [facility] Address [address] [place] [address] Care Team Providers Name Role Phone Isis Neely MD Primary Care Provider Reason for Referral Radiology Services (Routine) Status Reason Specialty Diagnoses / Referred By Referred To Procedures Contact Contact New Request Diagnostic Diagnoses Multiple thyroid nodules Florinda Radiology Procedures US HEAD NECK Rosalina Marinelli MD [facility] [address] [facility] [address] [place] [phone] (DEANGELO) Status Reason Specialty Diagnoses / Referred By Referred To Procedures Contact Contact New Request Patient is Ophthalmology Diagnoses Vision decreased Froylan Neely, Established with Procedures CONSULT/REFERRAL OPHTHALMOLOGY Rickey Davis a Specific MD MD Provider [address] [facility] [place] [phone] Phone: Fax: ([facility]) Status Reason Specialty Diagnoses / Referred By Referred To Procedures Contact Contact Authorized Location Rheumatology Diagnoses Myalgia Arthralgia of multiple joints Shailesh Neely, Preference Procedures CONSULT/REFERRAL RHEUMATOLOGY Rosalina Marinelli MD Referring/Pcp [address] [facility] [place] [address] Reason for Visit Reason Comments Fatigue Encounter Details Date Type Department Care Team Description 11/10/2018 Office Visit [facility] Family Rosalina Neely Unco ntrolled daytime somnolence (Primary Dx); Medicine - Anand Marinelli MD Myalgia; [facility] Geri salvador [facility] [address] [place] (obstructive sleep apnea); [place], [place] Arthralgia of m ultiple joints; [phone] Neuropathy of both feet; [phone] Vision decreased; Multiple thyroid nodules; Need for hepati tis C screening test Allergies Active Allergy Reactions Severity Noted Date Comments Hydromorphone (Bulk) Hallucinations 02/02/2018 Metronidazole Hcl Swelling 06/02/2015 Lisinopril Swelling, Cough 09/08/2017 Losartan Swelling 03/31/2018 Penicillins Hives 06/02/2015 documented as of this encounter (statuses as of 11/12/2018) Medications Medication Sig Dispensed Refills Start End Status Date Date aspirin 81 mg EC tablet Take 81 mg by 0 Active mouth daily. albuterol 90 Inhale 2 Puffs 8.5 g 1 08/10/19 Ac tive mcg/actuation inhaler every 6 (six) 17 hours as needed for Wheezing or Shortness of Breath. vitamin B-12 (VITAMIN Take 1 tablet 90 tablet 1 06/04/19 Active B-12) 500 mcg tablet by mouth daily. 18 vitamin B-6 (VITAMIN Take 1 tablet 90 tablet 1 06/04/19 Active B-6) 100 mg tablet by mouth daily. 18 Blood-Glucose Meter Use as 1 Kit 0 10/01/19 Active (ONETOUCH VERIO IQ directed, 18 METER) Kit DX:E11.9 Insulin [place], Use as 100 Each 1 10/25/19 Act jake Disposable, (CAREFINE directed, once 18 PEN NEEDLE) 32 gauge x daily, DX:E11.9 " Ndle coenzyme Q10 (COQ-10) Take 1 capsule 0 11/11/19 Active 100 mg softgel by mouth daily. 18 albuterol 90 2 puffs with 1 Inhaler 1 04/24/19 Acti ve mcg/actuation spacer 4 times 19 inhalerIndications: a day for at Bronchospasm least 7 days inhalational spacing May substitute 1 Each 0 04/24/19 Active deviceIndications: other spacing 19 Bronchospasm device acetaminophen-codeine 1/2 - 1 tab 15 tablet 0 04/24/19 Active 300-30 mg Every 4hrs as 19 tabletIndications: needed for pain Cough or cough requiring narcotic albuterol 2.5 mg /3 mL Inhale 3 mL 120 Vial 0 04/30/19 Active (0.083 %) nebulizer every 4 (four) 19 solutionIndications: hours as needed Chronic obstructive for Wheezing or pulmonary disease, Shortness of unspecified COPD type Breath. Via nebulizer ROSUVASTATIN 20 mg TAKE 1 TABLET 90 tablet 1 06/02/19 Active tabletIndications: BY MOUTH AT 19 Hypercholesterolemia BEDTIME STOP TAKING ATORVASTATIN dulaglutide ([facility]) inject 1.5 mg 12 Syringe 3 06/18/19 Active 1.5 mg/0.5 mL under the skin 19 PnIjIndications: Type 2 weekly. diabetes mellitus with diabetic nephropathy, with long-term current use of insulin metFORMIN 1,000 mg Take 1 tablet 180 tablet 3 06/18/19 Active tabletIndications: Type by mouth 2 19 2 diabetes mellitus (two) times with diabetic daily with nephropathy, with meals. long-term current use of insulin blood sugar diagnostic Use as 100 Strip 3 06/18/19 Active stripIndications: Type directed. 19 2 diabetes mellitus E11.21. Check with diabetic once daily nephropathy, with long-term current use of insulin lancets 33 gauge Use as 100 Each 3 06/18/19 Act jake MiscIndications: Type 2 directed. 19 diabetes mellitus with E11.21. Check diabetic nephropathy, once daily with long-term current use of insulin fluticasone-vilanterol Inhale 1 Puff 1 Each 5 07/14/19 Active (BREO ELLIPTA) 100-25 daily. Rinse 19 mcg/dose mouth after DsDvIndications: each use. Moderate persistent asthma with acute exacerbation magnesium oxide 400 mg TAKE 2 TABLETS 240 tablet 5 07/15/19 Active (241.3 mg magnesium) BY MOUTH 4 19 tabletIndications: TIMES DAILY Hypomagnesemia FERROUS GLUCONATE 324 TAKE 1 TABLET 90 tablet 1 09/02/19 Active mg (37.5 mg iron) BY MOUTH ONCE 19 tabletIndications: Iron DAILY deficiency VITAMIN D2 50,000 unit TAKE 1 CAPSULE 6 capsule 1 09/16/19 Active capsuleIndications: BY MOUTH EVERY 19 Vitamin D deficiency TWO WEEKS WITH FOOD metoprolol succinate XL Take 1 tablet 90 tablet 1 10/09/19 Active 50 mg 24 hr by mouth daily. 19 tabletIndications: Essential hypertension NIFEdipine ER 60 mg SR TAKE 1 TABLET 30 tablet 5 10/09/19 Active tabletIndications: BY MOUTH ONCE 19 Essential hypertension DAILY omeprazole 40 mg 0 09/13/19 Act jake capsule 19 mesalamine 1.2 gram EC 1 08/06/19 Active tablet 19 MOVANTIK 25 mg Tab TAKE 1 TABLET 1 09/10/19 Active BY MOUTH ONCE 19 DAILY glimepiride 4 mg tablet Take 1 tablet 180 tablet 1 11/11/19 Active by mouth 2 19 (two) times daily with meals. glimepiride 4 mg tablet 2 tablet daily gabapentin 100 mg Take 1 capsule 90 capsule 1 11/11/19 Active capsuleIndications: by mouth at 19 Neuropathy of both feet bedtime. tiZANidine 2 mg Take 0.5-1 30 tablet 0 11/11/19 Act jake tabletIndications: tablets by 19 Myalgia mouth every 8 (eight) hours as needed (muscle pain or spasm). Armodafinil 50 mg Take 2 tablets 60 tablet 2 11/12/19 Active TabIndications: by mouth every 19 Uncontrolled daytime morning. somnolence, FRANDY (obstructive sleep apnea) tiZANidine 2 mg tablet Take 0.5-1 30 tablet 0 08/16/19 Discontinued tablets by 18 019 mouth every 8 (eight) hours as needed (muscle pain or spasm). glimepiride 4 mg glimepiride 4 mg tablet 180 tablet 1 06/18/19 Discontinued tabletIndications: Type 2 tablet daily 19 019 2 diabetes mellitus with diabetic nephropathy, with long-term current use of insulin Armodafinil 50 mg Take 1 tablet 30 tablet 0 10/09/19 Discontinued TabIndications: by mouth every 19 019 Uncontrolled daytime morning. somnolence, FRANDY (obstructive sleep apnea) documented as of this encounter (statuses as of 11/12/2018) Active Problems Problem Noted Date Neuropathy of both feet 11/12/2018 Myalgia 11/12/2018 Uncontrolled daytime somnolence 10/14/2018 Nonobstructive atherosclerosis of coronary artery 06/2018 Intolerance of continuous positive airway pressure (CP AP) ventilation 10/14/2018 COPD with acute exacerbation 02/02/2018 FRANDY (obstructive sleep apnea) 01/19/2018 SOTO (dyspnea on exertion) 01/18/2018 Multiple thyroid nodules 10/06/2017 Left shoulder pain, unspecified chronicity 10/05/2017 Osteoarthritis of left shoulder 10/03/2017 Neck pain 07/28/2017 Chronic antral gastritis 05/08/2017 Esophageal varices 05/08/2017 Osteoarthritis 01/30/2017 Blurry vision, left eye 01/23/2017 Sicca, unspecified type 01/23/2017 Vitamin B6 deficiency 01/18/2017 Iron deficiency 01/16/2017 B12 deficiency 01/16/2017 Elevated sed rate 01/16/2017 Abdominal adhesions 12/06/2016 Chronic abdominal pain 12/06/2016 Obesity (BMI 30-39.9) 08/06/2016 Pneumonia 08/06/2016 Vitamin D deficiency 07/18/2016 Hypocalcemia 07/13/2016 Hypomagnesemia 07/13/2016 Severe obstructive sleep apnea 06/19/2016 Chronic constipation 05/19/2016 HLD (hyperlipidemia) 05/19/2016 GERD (gastroesophageal reflux disease) 05/18/2016 Uncontrolled type 2 diabetes mellitus without complica tion, without 05/15/2016 long-term current use of insulin Essential hypertension 05/15/2016 documented as of this encounter (statuses as of 11/12/2018) Resolved Problems Problem Noted Date Resolved Date Chest pain 01/17/2018 11/12/2018 Immunization counseling 01/23/2017 11/12/2018 Temporal headache 01/16/2017 11/12/[address] scan 12/06/2016 11/12/2018 documented as of this encounter (statuses as of 11/12/2018) Immunizations Name Administration Dates Next Due Influenza [...] of this encounter Last Filed Vital Signs Vital Sign Reading Time Taken Comments Blood Pressure 91/56 11/10/2018 4:12 PM CDT Pulse 95 11/10/2018 4:12 PM CDT Temperature 36.8 C (98.3 F) 11/10/2018 4:12 PM CDT Respiratory Rate - - Oxygen Saturation - - Inhaled Oxygen Concentration - - Weight 99.8 kg (220 lb) 11/10/2018 4:12 PM CDT Height 170.2 cm (5' 7") 11/10/2018 4:12 PM CDT Body Mass Index 34.46 11/10/2018 4:12 PM CDT documented in this encounter Patient Instructions Patient InstructionsRosalina Neely MD - 11/10/2018 4:00 PM CDT Abdominal Pain, Adhesions fromSurgery Surgery on the abdomen can cause bands of fibrous scar tissue (also known as adhesions) to form.This isthe most common side effect of any abdominal surgery. Adhesions can form bands around the intestine and cause a partial or complete blockage of the intestinal tract (intestinal obstruction). A blocked intestine requires surgery. Symptoms Abdominal adhesions can cause these symptoms: Severe abdominal pain, acute or chronic Nausea and vomiting Bloating Inability to pass gas or stool Adhesions are more common in people who have had one or more abdominal surgeries. Diagnosis is made using blood tests, X-ray, CT scan, rectal exam, and (in women) pelvic exam. Abdominal adhesions are permanent. They can be treated bysurgery to remove the scar tissue. However, this treatment may create more scar tissue, and the problem may reoccur. Pelvic adhesions cancause female infertility. Home care Rest as needed, until feeling better. Eat a diet low in fiber (called a low-residue diet). Foods allowed include refined breads, white rice, fruit and vegetable juices without pulp, tender meats. These foods will pass more easily through the intestine. Don't eat whole-grain foods, whole fruits and vegetables, tough meats, seeds or nuts until your symptoms go away. Follow-up care Follow up with your healthcare provider, oras advised. If X-rays were done, they will be read by a radiologist and you will be notified if there are any changes. Call [phone] if any of the following occur: Trouble breathing Confusion Very drowsy or trouble awakening Fainting or loss of consciousness Rapid heart rate When to seek medical advice Call your healthcare provider right awayif any of these occur: Pain gets worse or moves to the right lower abdomen New or worsening vomiting or diarrhea Swelling of the abdomen Unable to pass stool for more than3 days New fever over 100.4F (38C), or rising fever Blood in vomit or bowel movements (dark red or black color) Weakness, dizziness or fainting Chest, arm, back, neck or jaw pain (In women): Unexpected vaginal bleeding or missed period Date Last Reviewed: 04/12/[id number] [employer]. [address] [place] [id number]. All rights reserved. This information is not intended as a substitute for professional medical care. Always follow your healthcare professional's instructions. documented in this encounter Progress Notes Rosalina Neely MD - 11/10/2018 4:00 PM CDT Cc: Chief Complaint Patient presents with Fatigue (and multiple other concerns) HPI Amy Montalvo is a 62 year old female who presents today to discuss her fatigue and multiple other concerns. She c/o continued severe fatigue. She has daytime somnolence to the extent she can fall asleep anywhere. She denies falling asleep driving though. She has a h/o CPAP intolerance. Her Director Of Assisted Living recently approved her using armodafanil. She says the initial 50mg dose helped her fatigue and daytime sleepiness, but not enough. She requests a dose increase. She any denies adverse medication side effects. She also c/o persistent diffuse myalgias and arthralgias of multiple joints, susy her shoulders. Shesays it is hard to function due to her chronic pain. She has seen a Pre Owned Sales Manager in the past and PMR was ruled-out. She is open to seeing another Pre Owned Sales Manager for a second opinion. She requests refills of tizanidine which does help her pain. She c/o tingling of both feet. It is very bothersome day and night. She has used gabapentin in thepast but says it made her too sedated (300mg dose). She would like to try it again. She also would like to review the results of her recent [employer] screening. She was told to discussher thyroid US findings with her doctor. She reports declining vision lately and need for a referral back to her Counting Machine Operator Dr. Galeano/Dr. Walsh (retinal specialist). Allergies Amy is allergic to dilaudid [hydromorphone (bulk)]; flagyl [metronidazole hcl]; lisinopril; losartan; and pcn [penicillins]. Medications Outpatient Medications Prior to Visit Medication Sig Dispense Refill mesalamine 1.2 gram EC tablet 1 MOVANTIK 25 mg Tab TAKE 1 TABLET BY MOUTH ONCE DAILY 1 omeprazole 40 mg capsule Armodafinil 50 mg Tab Take 1 tablet by mouth every morning. 30 tablet 0 metoprolol succinate XL 50 mg 24 hr tablet Take 1 tablet by mouth daily. 90 tablet 1 NIFEdipine ER 60 mg SR tablet TAKE 1 TABLET BY MOUTH ONCE DAILY 30 tablet 5 VITAMIN D2 50,000 unit capsule TAKE 1 CAPSULE BY MOUTH EVERY TWO WEEKS WITH FOOD 6 capsule 1 FERROUS GLUCONATE 324 mg (37.5 mg iron) tablet TAKE 1 TABLET BY MOUTH ONCE DAILY 90 tablet 1 magnesium oxide 400 mg (241.3 mg magnesium) tablet TAKE 2 TABLETS BY MOUTH 4 TIMES DAILY 240 tablet 5 fluticasone-vilanterol (BREO ELLIPTA) 100-25 mcg/dose DsDv Inhale 1 Puff daily. Rinse mouth after each use. 1 Each 5 blood sugar diagnostic strip Use as directed. E11.21. Check once daily 100 Strip 3 dulaglutide (TRULICITY) 1.5 mg/0.5 mL PnIj inject 1.5 mg under the skin weekly. 12 Syringe 3 glimepiride 4 mg tablet glimepiride 4 mg tablet 2 tablet daily 180 tablet 1 lancets 33 gauge Misc Use as directed. E11.21. Check once daily 100 Each 3 metFORMIN 1,000 mg tablet Take 1 tablet by mouth 2 (two) times daily with meals. 180 tablet 3 ROSUVASTATIN 20 mg tablet TAKE 1 TABLET BY MOUTH AT BEDTIME STOP TAKING ATORVASTATIN 90 tablet1 albuterol 2.5 mg /3 mL (0.083 %) nebulizer solution Inhale 3 mL every 4 (four) hours as needed for Wheezing or Shortness of Breath. Via nebulizer 120 Vial 0 acetaminophen-codeine 300-30 mg tablet 1/2 - 1 tab Every 4hrs as needed for pain or cough requiring narcotic 15 tablet 0 albuterol 90 mcg/actuation inhaler 2 puffs with spacer 4 times a day for at least 7 days 1 Inhaler 1 inhalational spacing device May substitute other spacing device 1 Each 0 coenzyme Q10 (COQ-10) 100 mg softgel Take 1 capsule by mouth daily. Insulin [place], Disposable, (CAREFINE PEN NEEDLE) 32 gauge x 5/32" Ndle Use as directed, once daily, DX:E11.9 100 Each 1 Blood-Glucose Meter (SkyD[employer]CH VERIO IQ METER) Kit Use as directed, DX:E11.9 1 Kit 0 tiZANidine 2 mg tablet Take 0.5-1 tablets by mouth every 8 (eight) hours as needed (muscle pain or spasm). 30 tablet 0 vitamin B-12 (VITAMIN B-12) 500 mcg tablet Take 1 tablet by mouth daily. 90 tablet 1 vitamin B-6 (VITAMIN B-6) 100 mg tablet Take 1 tablet by mouth daily. 90 tablet 1 albuterol 90 mcg/actuation inhaler Inhale 2 Puffs every 6 (six) hours as needed for Wheezing or Shortness of Breath. 8.5 g 1 aspirin 81 mg EC tablet Take 81 mg by mouth daily. No facility-administered medications prior to visit. Histories Past Medical History: Diagnosis Date Asthma B12 deficiency Chronic antral gastritis 05/08/2017 Chronic constipation Diabetes mellitus Diverticula of colon Diverticulitis Ectopic Esophageal reflux History of Helicobacter infection Hyperlipidemia Hypertension Iron deficiency Multiple thyroid nodules 10/06/2017 FRANDY (obstructive sleep apnea) Osteoarthritis of left shoulder 10/03/2017 TB lung, latent Vitamin B6 deficiency 01/18/2017 Past Surgical History: Procedure Laterality Date BOWEL RESECTION SECTION ESOPHAGOGASTRODUODENOSCOPY 03/27/2017 Social History Socioeconomic History Marital status: Spouse name: Not on file Number of children: Not on file Years of education: Not on file Highest education level: Not on file Occupational History Not on file Social Needs Financial resource strain: Not on file Food insecurity: Worry: Not on file Inability: Not on file Transportation needs: Medical: Not on file Non-medical: Not on file Tobacco Use Smoking status: Former Smoker Packs/day: 1.00 Years: 20.00 Pack years: 20.00 Smokeless tobacco: Never Used Tobacco comment: Quit about 25 years ago Substance and Sexual Activity Alcohol use: No Alcohol/week: 0.0 oz Drug use: No Sexual activity: Never control/protection: Post-menopausal Lifestyle Physical activity: Days per week: Not on file Minutes per session: Not on file Stress: Not on file Relationships Social connections: Talks on phone: Not on file Gets together: Not on file Attends protestant service: Not on file Active member of club or organization: Not on file Attends meetings of clubs or organizations: Not on file Relationship status: Not on file Intimate partner violence: Fear of current or ex partner: Not on file Emotionally abused: Not on file Physically abused: Not on file Forced sexual activity: Not on file Other Topics Concern Not on file Social History Narrative , 2 children [place] to local high school Family History Problem Relation Age of Onset Alzheimers dementia Mother Diabetes Father Hypertension Father Pulmonary Sister lung Cancer Brother lung Thyroid Sister Review of Systems Constitutional: Positive for fatigue. HENT: Negative. Eyes: Positive for visual disturbance (decreased vision). Respiratory: Negative. Cardiovascular: Negative. Gastrointestinal: Negative. Genitourinary: Negative. Musculoskeletal: Positive for arthralgias and myalgias. Skin: Negative. Neurological: Positive for numbness (tingling of feet). Psychiatric/Behavioral: Negative. Endocrine: Endocrine negative Vital Signs BP 91/56 (BP Location: Left arm, Patient Position: Sitting, BP CUFF SIZE: Adult Large) | Pulse 95 | Temp 36.8 C (98.3 F) (Tympanic) | Ht 5' 7" (1.702 m) | Wt 220 lb (99.8 kg) | BMI 34.46 kg/m Physical Exam Nursing note and vitals reviewed. Discussion in lieu of physical examination. Labs Cell Geneticist Visit on 10/29/2018 Component Date Value APPEARANCE 10/29/2018 Slightly Cloudy* COLOR 10/29/2018 [place]* PH 10/29/2018 6.0 SP GRAVITY 10/29/2018 1.025 GLU U QUAL 10/29/2018 Negative BLOOD 10/29/2018 Negative KETONES 10/29/2018 Trace* PROTEIN 10/29/2018 Trace* UROBILIN 10/29/2018 0.2 mg/dL BILIRUBIN 10/29/2018 Moderate* NITRITE 10/29/2018 Negative LEUK DANNA 10/29/2018 Negative RBC/HPF 10/29/2018 3 WBC/HPF 10/29/2018 5 BACTERIA 10/29/2018 Moderate* MUCOUS 10/29/2018 Marked* SQ EPITH 10/29/2018 10 HYAL CAST 10/29/2018 2 Ictotest 10/29/2018 Negative NA 10/29/2018 145 K 10/29/2018 5.1* CL 10/29/2018 102 CO2 TOTAL 10/29/2018 32* AGAP 10/29/2018 11 BUN 10/29/2018 23 GLUCOSE 10/29/2018 70 CREATININE 10/29/2018 1.09* TOTAL BILI 10/29/2018 0.4 CALCIUM 10/29/2018 10.1 T PROTEIN 10/29/2018 7.3 ALBUMIN 10/29/2018 4.0 ALK PHOS 10/29/2018 94 ALT(SGPT) 10/29/2018 27 AST(SGOT) 10/29/2018 26 eGFR Calculation (Non-Af* 10/29/2018 50.7 eGFR Calculation (Maribel* 10/29/2018 61.4 CK 10/29/2018 61 MAGNESIUM 10/29/2018 1.7 ESR 10/29/2018 31* HSV 1/2Ab IgM 10/29/2018 0.24 HSV I IgG 10/29/2018 Positive HSV II IgG 10/29/2018 Positive WBC 10/29/2018 8.47 RBC 10/29/2018 4.96 HGB 10/29/2018 11.9 HCT 10/29/2018 39.4 MCV 10/29/2018 79.4* MCH 10/29/2018 24.0* MCHC 10/29/2018 30.2* RDW-SD 10/29/2018 48.3 RDW-CV 10/29/2018 16.9* PLT 10/29/2018 271 MPV 10/29/2018 10.8 NRBC/100 WBC 10/29/2018 0.0 NRBC x10^3 10/29/2018 <0.01 GRAN MAT (NEUT) % 10/29/2018 48.5 IMM GRAN % 10/29/2018 0.20 LYMPH % 10/29/2018 39.9 MONO % 10/29/2018 7.3 EOS % 10/29/2018 3.9 BASO % 10/29/2018 0.2 GRAN MAT x10^3(ANC) 10/29/2018 4.10 IMM GRAN x10^3 10/29/2018 <0.03 LYMPH x10^3 10/29/2018 3.38* MONO x10^3 10/29/2018 0.62 EOS x10^3 10/29/2018 0.33 BASO x10^3 10/29/2018 <0.03 Office Visit on 10/29/2018 Component Date Value LACTIC ACID 10/29/2018 1.72 Herpes simplex virus typ* 10/29/2018 Negative Herpes simplex virus typ* 10/29/2018 Negative Varicella zoster virus N* 10/29/2018 Negative Assessment/Plan Diagnoses and all orders for this visit: Myalgia, Arthralgia of multiple joints Recommended evaluation and management by a nursing specialist. Referral intiated. Continue Tylenol and tizanidine PRN. - CONSULT/REFERRAL RHEUMATOLOGY - tiZANidine 2 mg tablet; Take 0.5-1 tablets by mouth every 8 (eight) hours as needed (muscle pain or spasm). Uncontrolled daytime somnolence, FRANDY (obstructive sleep apnea) Will cautiously try a dose increase of her armodafinil as requested by the patient. She was warned about the potential side effects. She agrees to closely monitor her bp and pulse. - Armodafinil 50 mg Tab; Take 2 tablets by mouth every morning. Neuropathy of both feet Trial of low-dose gabapentin as noted. Tight glucose control was stressed. Recent normal B12 level. - gabapentin 100 mg capsule; Take 1 capsule by mouth at bedtime. Vision decreased Recommended evaluation and management by her Ophthalmology specialist. Referral intiated. - CONSULT/REFERRAL OPHTHALMOLOGY Multiple thyroid nodules See scanned report from [facility]. Will get a formal thyroid US at our facility to reassess her nodules. - US HEAD NECK; Future Plan of care, desired health behaviors, goals, Ddx of myalgia and arthralgias and thyroid nodules, and any prescribed medications were discussed with the patient. This visit involved counseling and coordination of care that comprised more than 50% of the visit time. I spent 35 minute(s) total time with the patient. Education resources and self-management tools were provided and reviewed with the AVS. Patient/guardian/family verbalized understanding and agrees to the plan of care. Barriers to care: None. Ability to manage care: Good. Advanced care planning (living will) information was not given/offered to the patient to review for discussion at a future visit. If applicable, the [facility] database was accessed to review any controlled substance prescription claims data. If the patient is taking prescribed medications, the [employer] prescription claims data in [employer] was reviewed to assess patient compliance with the medication treatment plan. Follow-up: Return in about 2 weeks (around 11/24/2018) for fasting diabetic check. Follow-up soonerif any problems or concerns. Scribe Attestation Pearl Gil , am scribing for, and in the presence of, Rosalina Neely MD who performed the services described here-in. Pearl Garland, November 10, 2018, 5:22 PM Physician Attestation I, Rosalina Neely MD, personally performed the services described in this documentation , as scribed by, Pearl Garland in my presence and it is both accurate and complete. Rosalina Neely MD November 10, 2018, 5:22 PM documented in this encounter Plan of Treatment Date Type Specialty Care Team Description 11/17/2018 Appointment Radiology Monica Neely MD [address] [place] [address] [phone] 11/26/2018 Office Visit Family Medicine Monica Neely MD [address] [place] [address] [phone] Name Type Priority Associated Diagnoses Order S chedule US HEAD NECK IMAGING Routine Multiple thyroid nodules Exp ected: 11/11/2018, Expires: 2019 HCV ANTIBODY LAB Routine Need for hepatitis C 1 Occur rences starting screening test 11/12/2018 un til 01/11/2019 Health Maintenance Due Date Last Done Comments HEPATITIS C (HCV) SCREEN 1955 DTaP,Tdap,and Td Vaccines (1 - 1973 Tdap) PAP SMEAR 11/16/1975 MAMMOGRAM 1994 Zoster Recombinant Vaccine 2004 (SHINGRIX) (1 of 2) URINE MICROALBUMIN 02/12/2018 02/12/2017 LDL-C 06/26/2018 06/26/2017, 02/12/2017 INFLUENZA VACCINE 12/13/2018 02/07/2018 HgA1C 12/18/2018 06/17/2018, 01/18/2018, 10/21/2017, Additional history exists LUNG CANCER SCREEN: Recommended 02/03/2019 02/03/2018, 06/2017, for age 55-80 with 30 + pack year 11/14/2016 history EYE EXAM 06/13/2019 06/12/2018 FOOT EXAM 06/18/2019 06/17/2018, 06/17/2018, 09/10/2017, Additional history exists CREATININE (SERUM) 10/30/2019 10/29/2018, 09/10/2018, 09/02/2018, Additional history exists COLONOSCOPY 02/25/2027 02/25/2017 PNEUMOCOCCAL 0-64 YEARS COMBINED Completed 02/07/2018 SERIES documented as of this encounter Results Not on filedocumented in this encounter Visit Diagnoses Diagnosis Uncontrolled daytime somnolence - Primar y Other alteration of consciousness Myalgia Mylagia and myositis, unspecified FRANDY (obstructive sleep apnea) Obstructive sleep apnea (adult) (pediatr ic) Arthralgia of multiple joints Pain in joint, multiple sites Neuropathy of both feet Mononeuritis of lower limb, unspecified Vision decreased Unspecified visual loss Multiple thyroid nodules Nontoxic multinodular goiter Need for hepatitis C screening test Special screening examination for other specified viral diseases documented in this encounter [facility] [facility] [address] [place], [place] (Work) [address] documented as of this encounter
--- OUTSIDE RECORDS SUMMARY | 2019-09-01 19:47 | XMS REPORT | Summary of Care ---
:1955 Author Organization [facility] [employer] [facility] Address [address] [place] [address] Care Team Providers Name Role Phone Isis Neely MD Primary Care Provider Reason for Referral Radiology Services (Routine) Status Reason Specialty Diagnoses / Referred By Referred To Procedures Contact Contact New Request Diagnostic Diagnoses Multiple thyroid nodules Florinda Radiology Procedures US HEAD NECK Rosalina Marinelli MD [facility] [address] [facility] [address] [place] [phone] (DEANGELO) Status Reason Specialty Diagnoses / Referred By Referred To Procedures Contact Contact New Request Patient is Ophthalmology Diagnoses Vision decreased Froylan Neely, Established with Procedures CONSULT/REFERRAL OPHTHALMOLOGY Rickey Davis a Specific MD MD Provider [address] [facility] [place] [phone] Phone: Fax: ([facility]) Status Reason Specialty Diagnoses / Referred By Referred To Procedures Contact Contact Authorized Location Rheumatology Diagnoses Myalgia Arthralgia of multiple joints Shailesh Neely, Preference Procedures CONSULT/REFERRAL RHEUMATOLOGY Rosalina Marinelli MD Referring/Pcp [address] [facility] Prov Not I [place] [address] Reason for Visit Reason Comments Fatigue Encounter Details Date Type Department Care Team Description 11/10/2018 Office Visit [facility] Family Rosalina Neely Unco ntrolled daytime somnolence (Primary Dx); Medicine - Anand Marinelli MD Myalgia; [facility] [address] [facility] [address] [place] (obstructive sleep apnea); [place], [place] Arthralgia of m ultiple joints; [phone] Neuropathy of both feet; [phone] Vision decreased; Multiple thyroid nodules; Need for [...] IQ directed, 18 METER) Kit DX:E11.9 Insulin [place], Use as 100 Each 1 10/25/19 Act [...] 19 Hypercholesterolemia BEDTIME STOP TAKING ATORVASTATIN dulaglutide ([facility]) inject 1.5 mg 12 Syringe 3 [...] if there are any changes. Call 911 [id number] if any of the following occur: Trouble [...] bleeding or missed period Date Last Reviewed: 04/12/201519997302-[address] [employer] [place] [address]. All rights reserved. This information is not [...] She has a h/o CPAP intolerance. Her Wharf Labourer recently approved her using armodafanil. She says the initial 50mg dose helped her fatigue and daytime sleepiness, but not enough. She requests a dose increase. She any denies adverse medication side effects. She also c/o persistent diffuse myalgias and arthralgias of multiple joints, susy her shoulders. Shesays it is hard to function due to her chronic pain. She has seen a Surveying Crew Rodman in the past and PMR was ruled-out. She is open to seeing another Surveying Crew Rodman for a second opinion. She requests refills [...] need for a referral back to her Skilled Labor Dr. Galeano/Dr. Walsh (retinal specialist). Allergies Amy [...] Take 1 capsule by mouth daily. Insulin [place], Disposable, (CAREFINE PEN NEEDLE) 32 gauge x 5/32" Ndle Use as directed, once daily, DX:E11.9 100 Each 1 Blood-Glucose Meter (To8toUCH VERIO IQ METER) Kit Use as directed, [...] file Gets together: Not on file Attends mandaeism service: Not on file Active member of [...] file Social History Narrative , 2 children [place] to local high school Family History Problem [...] Discussion in lieu of physical examination. 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 Referral intiated. Continue Tylenol and tizanidine [...] Multiple thyroid nodules See scanned report from [facility]. Will get a formal thyroid US [...] at a future visit. If applicable, the [facility] database was accessed to review any controlled substance prescription claims data. If the patient is taking prescribed medications, the [employer] prescription claims data in Suja Juice was reviewed to assess patient compliance with [...] Description 11/17/2018 Appointment Radiology Monica Neely MD [address] [place] [phone] 11/26/2018 Office Visit Family Medicine Monica Neely MD [address] [place] [address] [phone] Name Type Priority Associated Diagnoses Order S [...] specified viral diseases documented in this encounter [facility] [facility] ([address] [place], [place] (Work) [address] documented as of this encounter
--- OUTSIDE RECORDS SUMMARY | 2019-09-01 19:48 | XMS REPORT | Summary of Care ---
:1955 Author Organization [facility] [employer] [facility] Address [address] [place] [address] Care Team Providers Name Role Phone Isis Neely MD Primary Care Provider Reason for Referral Radiology Services (Routine) Status Reason Specialty Diagnoses / Referred By Referred To Procedures Contact Contact New Request Diagnostic Diagnoses Multiple thyroid nodules Florinda Radiology Procedures US HEAD NECK Rosalina Marinelli MD [facility] [address] [facility] [address] [place] [phone] (DEANGELO) Status Reason Specialty Diagnoses / Referred By Referred To Procedures Contact Contact New Request Patient is Ophthalmology Diagnoses Vision decreased Froylan Neely, Established with Procedures CONSULT/REFERRAL OPHTHALMOLOGY Rickey Davis a Specific MD MD Provider [address] [facility] [place] [phone] Phone: Fax: ([facility]) Status Reason Specialty Diagnoses / Referred By Referred To Procedures Contact Contact Authorized Location Rheumatology Diagnoses Myalgia Arthralgia of multiple joints Shailesh Neely, Preference Procedures CONSULT/REFERRAL RHEUMATOLOGY Rosalina Marinelli MD Referring/Pcp [address] [facility] [place] [address] Reason for Visit Reason Comments Fatigue Encounter Details Date Type Department Care Team Description 11/10/2018 Office Visit [facility] Family Rosalina Neely Unco ntrolled daytime somnolence (Primary Dx); Medicine - Anand Marinelli MD Myalgia; [facility] [address] [facility] [address] [place]ISE (obstructive sleep apnea); [place], [place] Arthralgia of m ultiple joints; [phone] Neuropathy of both feet; [phone] Vision decreased; Multiple thyroid nodules; Need for [...] IQ directed, 18 METER) Kit DX:E11.9 Insulin [place], Use as 100 Each 1 10/25/19 Act [...] 19 Hypercholesterolemia BEDTIME STOP TAKING ATORVASTATIN dulaglutide ([facility]) inject 1.5 mg 12 Syringe 3 06/18/19 [...] if there are any changes. Call 911 [phone] if any of the following occur: Trouble [...] bleeding or missed period Date Last Reviewed: 04/12/201519991347-7094 [employer]. [address] [place] [address]. All rights reserved. This information is not [...] She has a h/o CPAP intolerance. Her Optometry Assistant recently approved her using armodafanil. She says the initial 50mg dose helped her fatigue and daytime sleepiness, but not enough. She requests a dose increase. She any denies adverse medication side effects. She also c/o persistent diffuse myalgias and arthralgias of multiple joints, susy her shoulders. Shesays it is hard to function due to her chronic pain. She has seen a Plant Controls Specialist in the past and PMR was ruled-out. She is open to seeing another Plant Controls Specialist for a second opinion. She requests refills [...] need for a referral back to her New Media Strategist Dr. Galeano/Dr. Walsh (retinal specialist). Allergies Amy [...] Take 1 capsule by mouth daily. Insulin [place], Disposable, (CAREFINE PEN NEEDLE) 32 gauge x 5/32" Ndle Use as directed, once daily, DX:E11.9 100 Each 1 Blood-Glucose Meter (BUKAUCH VERIO IQ METER) Kit Use as directed, [...] file Gets together: Not on file Attends jainism service: Not on file Active member of [...] file Social History Narrative , 2 children [place] to local high school Family History Problem [...] Discussion in lieu of physical examination. Labs Director Of Video Analytics Visit on 10/29/2018 Component Date Value APPEARANCE 10/29/2018 Slightly Cloudy* COLOR 10/29/2018 [place]* PH 10/29/2018 6.0 SP GRAVITY 10/29/2018 1.025 [...] joints Recommended evaluation and management by a gas plant specialist. Referral intiated. Continue Tylenol and tizanidine [...] Multiple thyroid nodules See scanned report from [facility]. Will get a formal thyroid US [...] at a future visit. If applicable, the [facility] database was accessed to review any controlled substance prescription claims data. If the patient is taking prescribed medications, the [employer] prescription claims data in [employer] was reviewed to assess patient compliance with [...] Description 11/17/2018 Appointment Radiology Monica Neely MD [address] [place] [phone] 11/26/2018 Office Visit Family Medicine Monica Neely MD [address] [place] [address] [phone] Name Type Priority Associated Diagnoses Order S [...] specified viral diseases documented in this encounter [facility] [facility] ([address]) [address] [place], [place] (Work) [address] documented as of this encounter
--- OUTSIDE RECORDS SUMMARY | 2019-09-01 19:49 | XMS REPORT | Summary of Care ---
:1955 Author Organization [facility] [employer] [facility] Address [address] [place] [address] Care Team Providers Name Role Phone Isis Neely MD Primary Care Provider Encounter Details Date Type Department Care Team Description 11/17/2018 Orders Only [facility] Doctor Unassigned, No [address] [facility] [place] [address] [address] [place] [address] Allergies Active Allergy Reactions Severity Noted Date Comments Hydromorphone (Bulk) Hallucinations 02/02/2018 Metronidazole Hcl Swelling 06/02/2015 Lisinopril Swelling, Cough 09/08/2017 Losartan Swelling 03/31/2018 Penicillins Hives 06/02/2015 documented as of this encounter (statuses as of 11/17/2018) Medications Medication Sig Dispensed Refills Start End [...] Active 100 mg tablet mouth daily. 8 Blood-Glucose Meter Use as directed, 1 Kit 0 Active (ZPowerUCH VERIO IQ METER) DX:E11.9 8 Kit Insulin [place], Use as directed, 100 Each 1 07/13/201 Active Disposable, (CAREFINE PEN once daily, 8 [...] AT BEDTIME 9 Hypercholesterolemia STOP TAKING ATORVASTATIN dulaglutide ([facility]) inject 1.5 mg 12 Syringe 3 Active [...] hr mouth daily. 9 tabletIndications: Essential hypertension NIFEdipine ER 60 mg SR TAKE 1 TABLET BY 30 tablet 5 Active tabletIndications: MOUTH ONCE DAILY 9 Essential hypertension omeprazole 40 mg capsule 0 Active 9 mesalamine 1.2 gram EC 1 Active tablet 9 MOVANTIK 25 mg Tab TAKE 1 TABLET BY 1 Active MOUTH ONCE DAILY 9 glimepiride 4 mg tablet Take 1 tablet by 180 tablet 1 11/11/19 1 Active mouth 2 (two) 9 times daily with meals. glimepiride 4 mg tablet 2 tablet daily gabapentin 100 mg Take 1 capsule by 90 capsule 1 Active capsuleIndications: mouth at bedtime. 9 Neuropathy of both feet tiZANidine 2 mg Take 0.5-1 30 tablet 0 Act jake tabletIndications: tablets by mouth 9 Myalgia every 8 (eight) hours as needed (muscle pain or spasm). Armodafinil 50 mg Take 2 tablets by 60 tablet 2 Active TabIndications: mouth every 9 Uncontrolled daytime morning. somnolence, FRANDY (obstructive sleep apnea) documented as of this encounter (statuses as of 11/17/2018) Active Problems Problem Noted Date Neuropathy of [...] as of this encounter (statuses as of 11/17/2018) Resolved Problems Problem Noted Date Resolved Date Chest pain 01/17/2018 11/12/2018 Immunization counseling 01/23/2017 11/12/2018 Temporal headache 01/16/2017 11/12/[address] scan 12/06/2016 11/12/2018 documented as of this encounter (statuses as of 11/17/2018) Immunizations Name Administration Dates Next Due Influenza [...] filedocumented in this encounter Plan of Treatment Date Type Specialty Care Team Description 11/17/2018 Appointment Radiology Monica Neely MD [address] [facility], [place] [phone] 11/26/2018 Office Visit Family Medicine Monica Neely MD [address] [facility] [place] [phone] Health Maintenance Due Date Last Done Comments HEPATITIS C (HCV) SCREEN 1955 DTaP,Tdap,and Td Vaccines (1 - 1973 Tdap) PAP SMEAR 11/16/1975 MAMMOGRAM 1994 Zoster Recombinant Vaccine 2004 (SHINGRIX) (1 of 2) URINE MICROALBUMIN 02/12/2018 02/12/2017 LDL-C 06/26/2018 06/26/2017, 02/12/2017 INFLUENZA VACCINE 12/13/2018 02/07/2018 HgA1C 12/18/2018 06/17/2018, 01/18/2018, 10/21/2017, Additional history exists LUNG CANCER SCREEN: Recommended 02/03/2019 02/03/2018, 08/0 06/2017, for age 55-80 with 30 + pack year 11/14/2016 history EYE EXAM 06/13/2019 06/12/2018 FOOT EXAM 06/18/2019 06/17/2018, 06/17/2018, 09/10/2017, Additional history exists CREATININE (SERUM) 10/30/2019 10/29/2018, 09/10/2018, 09/02/2018, Additional history exists COLONOSCOPY 02/25/2027 02/25/2017 PNEUMOCOCCAL 0-64 YEARS COMBINED Completed 02/07/2018 SERIES documented as of this encounter Procedures Procedure Name Priority Date/Time Associated Diagnosis Comme nts ASSIGNMENT OF BENEFITS Routine 11/17/2018 1:55 PM CDT documented in this encounter Results Not on filedocumented in this encounter Insurance Payer Benefit Plan / Group Subscriber ID Effective Dates Phone Address Type AETNA [employer] [facility] CARE [id number] 2013-Present PPO documented as of this encounter
--- OUTSIDE RECORDS SUMMARY | 2019-09-01 19:49 | XMS REPORT | Summary of Care ---
:1955 Author Organization [facility] [employer] Address [address] [place] [address] Care Team Providers Name Role Phone Isis Neely MD Primary Care Provider Reason for Visit Reason Comments Rx Concern/Question Encounter Details Date Type Department Care Team Description 11/17/2018 Telephone [facility] Family Rosalina Neely R x Concern/Question Medicine - Anand FERRARO [address] [place] [phone] [place], [place] [phone] Allergies Active Allergy Reactions Severity Noted Date [...] Use as directed, 1 Kit 0 Active (BlueStripe SoftwareUCH VERIO IQ METER) DX:E11.9 8 Kit Insulin [place], Use as directed, 100 Each 1 Active [...] BEDTIME 9 Hypercholesterolemia STOP TAKING ATORVASTATIN dulaglutide ([facility]) inject 1.5 mg 12 Syringe 3 Active [...] somnolence 10/14/2018 Nonobstructive atherosclerosis of coronary artery 0706/2018 Intolerance of continuous positive airway pressure (CP [...] 11/17/2018 Appointment Radiology Monica Neely MD [address] [place], [place] [phone] 11/26/2018 Office Visit Family Medicine Monica Neely MD [address] [place], [place] [phone] Health Maintenance Due Date Last [...] [employer] [facility] CARE [id number] 2013-Present PPO documented as of this encounter
--- OUTSIDE RECORDS SUMMARY | 2019-09-01 19:50 | XMS REPORT | Summary of Care ---
:1955 Author Organization [facility] Address [address] [place] [address] Care Team Providers Name Role Phone Isis Neely MD Primary Care Provider Reason for Referral Radiology Services (Routine) Status Reason Specialty Diagnoses / Referred By Referred To Procedures Contact Contact Closed Diagnostic Diagnoses Multiple thyroid nodules Rosalina Neely Radiology Procedures US HEAD NECK MD Isis [address] [place] [address] [place] [phone] Radiology Services (Routine) Status Reason Specialty Diagnoses / Referred By Referred To Procedures Contact Contact Closed Diagnostic Diagnoses Multiple thyroid nodules Venkata Neelyful Radiology Procedures US HEAD NECK MD Isis [address] [place] [address] [place] [address] Reason for Visit Radiology Services (Routine) Status Reason Specialty Diagnoses / Referred By Referred To Procedures Contact Contact Closed Diagnostic Diagnoses Multiple thyroid nodules Venkata Neelyful Radiology Procedures US HEAD NECK MD Isis [address] [place] [address] [place] [phone] Encounter Details Date Type Department Care Team Description 11/17/2018 [facility] [address] [place] [address] [place] [address] [place] [address] [place], [place] [phone] Allergies Active Allergy Reactions Severity Noted Date Comments Hydromorphone (Bulk) Hallucinations 02/02/2018 Metronidazole Hcl Swelling 06/02/2015 Lisinopril Swelling, Cough 09/08/2017 Losartan Swelling 03/31/2018 Penicillins Hives 06/02/2015 documented as of this encounter (statuses as of 11/18/2018) Medications Medication Sig Dispensed Refills Start End [...] Use as directed, 1 Kit 0 Active (Noiz AnalyticsUCH VERIO IQ METER) DX:E11.9 8 Kit Insulin [place], Use as directed, 100 Each 1 Active [...] BEDTIME 9 Hypercholesterolemia STOP TAKING ATORVASTATIN dulaglutide (TRULICITY) inject 1.5 mg 12 Syringe [...] 33 gauge Use as directed. 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 Rinse 9 mcg/dose DsDvIndications: mouth after each Moderate persistent use. asthma with acute exacerbation magnesium oxide 400 mg TAKE 2 TABLETS BY 240 tablet 07/15/19 1 Active (241.3 mg magnesium) MOUTH 4 TIMES 9 tabletIndications: DAILY Hypomagnesemia FERROUS GLUCONATE 324 mg TAKE 1 TABLET BY 90 tablet 09/02/19 1 Active (37.5 mg iron) MOUTH ONCE DAILY 9 tabletIndications: Iron deficiency VITAMIN D2 50,000 unit TAKE 1 CAPSULE BY 6 capsule Active capsuleIndications: MOUTH EVERY TWO 9 Vitamin D deficiency WEEKS WITH FOOD metoprolol succinate XL Take 1 tablet by 90 tablet Active 50 mg 24 hr mouth daily. 9 tabletIndications: Essential hypertension NIFEdipine ER 60 mg SR TAKE 1 TABLET BY 30 tablet Active tabletIndications: MOUTH ONCE DAILY 9 Essential [...] as of this encounter (statuses as of 11/18/2018) Active Problems Problem Noted Date Neuropathy of [...] as of this encounter (statuses as of 11/18/2018) Resolved Problems Problem Noted Date Resolved Date Chest pain 01/17/2018 11/12/2018 Immunization counseling 01/23/2017 11/12/2018 Temporal headache 01/16/2017 11/12/[address] scan 12/06/2016 11/12/2018 documented as of this encounter (statuses as of 11/18/2018) Immunizations Name Administration Dates Next Due Influenza [...] Treatment Date Type Specialty Care Team Description 11/26/2018 Office Visit Family Medicine Monica Neely MD [address] [place] [address] [phone] Name Type Priority Associated Diagnoses Date/Ti me US HEAD NECK IMAGING Routine Multiple thyroid nodules 09/2018 3:07 PM CDT Health Maintenance Due Date Last Done Comments [...] Name Priority Date/Time Associated Diagnosis Comme nts US HEAD NECK Routine 11/17/2018 3:07 PM CDT Multiple thyroid nodules Procedure Note - [facility], Radia nt Results Inft User - 11/17/2018 4:01 PM CDT THYROID ULTRASOUND ACR TI-RADS INDICATION: 62yo who is due for f/u of thyroid cysts/nodules. TECHNIQUE: Ultrasound examin ation of the thyroid and adjacent soft tissues was performed. COMPARISON: Thyroid ultrasou nd 10/03/2017 FINDINGS: The thyroid gland is atrophi c upper limits of normal in size with a heterogenous echotexture an d increased color Doppler flow. The isthmus measures 0.2 cm. The right thyroid lobe measu res 6.1 x 1.9 x 2 cm. The left thyroid lobe measur es 5.4 x 1.7 x 2.2 cm. Estimated total number of no dules ?1cm: 2 . Nodule#: 1 * Maximum size:0.8 cm. * Location: Lower - Right t hyroid lobe . * Composition: Mixed cystic /solid (1) . * Echogenicity: Isoechoic ( 1) . * Shape: Not taller than wi de (0) . * Margins: Smooth (0) . * Echogenic foci: None (0) . Significant change in size ( >/= 20% in two dimensions and minimal increase of 2 mm): Increase in size f rom 0.6 to 0.8 cm . Change in features: No . Change in ACR TI-RADS risk c ategory: No . * ACR TI-RADS total points: 2 . * ACR TI-RADS risk category : 2 . * ACR TI-RADS recommendatio n: No fine-needle aspiration or follow-up . Nodule#: 2 * Maximum size: 1 cm * Location: Mid - Right thy roid lobe * Composition: Solid/almost completely solid (2) * Echogenicity: Hyperechoic or isoechoic (1) * Shape: Not taller than wi de (0) * Margins: Smooth (0) * Echogenic foci: None (0) Significant change in size ( >/= 20% in two dimensions and minimal increase of 2 mm): No Change in features: No Change in ACR TI-RADS risk c ategory: No * ACR TI-RADS total points: 3 * ACR TI-RADS risk category : 3 ACR TI-RADS recommendation: A follow-up thyroid ultrasound in 3 years is recommended. Nodule#: 3 * Maximum size 1 cm * Location: Mid - Left thyr oid lobe * Composition: Solid/almost completely solid (2) * Echogenicity: Hypoechoic (2) * Shape: Not taller than wi de (0) * Margins: Smooth (0) * Echogenic foci: None (0) Significant change in size ( >/= 20% in two dimensions and minimal increase of 2 mm): No Change in features: No Change in ACR TI-RADS risk c ategory: No * ACR TI-RADS total points: 4 * ACR TI-RADS risk category : 4 ACR TI-RADS recommendation: Recommend follow-up thyroid ultrasound 3 years. Nodule#: 4 * Maximum size:1 cm * Location: Mid - Left thyr oid lobe * Composition: Solid/almost completely solid (2) * Echogenicity: Hypoechoic (2) * Shape: Not taller than wi de (0) * Margins: Smooth (0) * Echogenic foci: None (0) Significant change in size ( >/= 20% in two dimensions and minimal increase of 2 mm): Yes Change in features: No Change in ACR TI-RADS risk c ategory: No * ACR TI-RADS total points: 4 * ACR TI-RADS risk category : 4 ACR TI-RADS recommendation: Follow-up thyroid ultrasound in 3 years. LYMPH NODES: None . IMPRESSION Grossly stable thyroid nodul es Prior examination. The 4 largest thyroid nodule s range from TiRADS 2 to TiRADS 3. A follow-up thyroid ultrasound is recomm ended in 3 years to document stability ----- ACR TI-RADS recommendations * TR5 (?7 points) -FNA if ? 1cm, follow-up if 0.5 -0.9 cm every year for 5 years * TR4 (4-6 points) -FNA if ? 1.5cm, follow-up if 1 -1.4 cm in 1, 2, 3 and 5 years * TR3 (3 points)-FNA if ? 2 .5cm, follow-up if 1.5 -2.4 cm in 1, 3 and 5 years * TR2 (2 points) & TR1 (0 p oints) -No FNA or follow-up documented in this encounter Results Not on filedocumented in this encounter Visit Diagnoses Diagnosis Multiple thyroid nodules Nontoxic multinodular goiter documented in this encounter [facility], [facility] ([address]) [address] [place] (Work) [id number] documented as of this encounter
--- OUTSIDE RECORDS SUMMARY | 2019-09-01 19:50 | XMS REPORT | Summary of Care ---
:1955 Author Organization [facility] Address [address] [place] [address] Care Team Providers Name Role Phone Isis Neely MD Primary Care Provider Encounter Details Date Type Department Care Team Description 11/20/2018 Orders Only [facility] Doctor Unassigned, No [address] [facility] [place] [address] [address] [place] [address] Allergies Active Allergy Reactions Severity Noted Date Comments Hydromorphone (Bulk) Hallucinations 02/02/2018 Metronidazole Hcl Swelling 06/02/2015 Lisinopril Swelling, Cough 09/08/2017 Losartan Swelling 03/31/2018 Penicillins Hives 06/02/2015 documented as of this encounter (statuses as of 11/20/2018) Medications Medication Sig Dispensed Refills Start End [...] Use as directed, 1 Kit 0 Active ([employer] labsUCH VERIO IQ METER) DX:E11.9 8 Kit Insulin [place], Use as directed, 100 Each 1 07/13/201 [...] BEDTIME 9 Hypercholesterolemia STOP TAKING ATORVASTATIN dulaglutide ([facility]) inject 1.5 mg 12 Syringe 3 Active [...] as of this encounter (statuses as of 11/20/2018) Active Problems Problem Noted Date Neuropathy of [...] as of this encounter (statuses as of 11/20/2018) Resolved Problems Problem Noted Date Resolved Date Chest pain 01/17/2018 11/12/2018 Immunization counseling 01/23/2017 11/12/2018 Temporal headache 01/16/2017 11/12/[address] scan 12/06/2016 11/12/2018 documented as of this encounter (statuses as of 11/20/2018) Immunizations Name Administration Dates Next Due Influenza [...] Treatment Date Type Specialty Care Team Description 11/20/2018 Watch Repairer Visit Clinical Medical Venkata Neely MD [address] [place] [address] [place] [phone] Laboratory 1, [facility] Lab 11/26/2018 Office Visit Family Medicine Rosalina Neely MD [address] [facility] [place] [phone] Health Maintenance Due Date Last Done Comments [...] Diagnosis Comme nts ASSIGNMENT OF BENEFITS Routine 11/20/2018 8:44 AM CDT documented in this encounter Results Not on filedocumented in this encounter Insurance Payer Benefit Plan / Group Subscriber ID Effective Dates Phone Address Type [employer]ET[employer] AET[employer] TRS CARE [id number] 2013-Present PPO documented as of this encounter
--- OUTSIDE RECORDS SUMMARY | 2019-09-01 19:51 | XMS REPORT | Summary of Care ---
:[address] [facility] Address [address] [place] [address] Care Team Providers Name Role Phone Isis Neely MD Primary Care Provider Reason for Visit Reason Comments LAB WORK Auth/Cert Status Reason Specialty Diagnoses / Referred By Referred To Procedures Contact Contact Clinical Medical Diagnoses Need for hepatitis C screening test Need for hepatitis C screening test [facility] Lab Laboratory Procedures HCV,POTASSIUM [address] [place] 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 Lab Need for hepatitis C screening test Lab-[address] [place] [address] Allergies Active Allergy Reactions Severity Noted [...] Use as directed, 1 Kit 0 Active (MendorUCH VERIO IQ METER) DX:E11.9 8 Kit Insulin [place], Use as directed, 100 Each 1 Active [...] 0 Active 9 mesalamine 1.2 gram EC Active tablet 9 MOVANTIK 25 mg Tab TAKE 1 TABLET BY 1 Active MOUTH ONCE DAILY 9 glimepiride 4 mg tablet Take 1 tablet by 180 tablet 1 11/11/19 1 Active mouth 2 (two) 9 times daily with meals. glimepiride 4 mg tablet 2 tablet daily gabapentin 100 mg Take 1 capsule by 90 capsule Active capsuleIndications: mouth at bedtime. 9 Neuropathy [...] Visit Family Medicine Monica Neely MD [address] [place] [phone] Name Type Priority Associated Diagnoses Date/Ti me POTASSIUM SERUM LAB Routine Hyperkalemia 11/20/2018 1 0:28 AM CDT HCV ANTIBODY LAB Routine Need for hepatitis C screeni ng 11/20/2018 10:28 AM CDT test Health Maintenance Due Date Last Done Comments [...] in this encounter Visit Diagnoses Diagnosis Hyperkalemia Hyperpotassemia Need for hepatitis C screening test Special screening examination for other specified viral diseases documented in this encounter (Work) [id number] documented as of this encounter
--- OUTSIDE RECORDS SUMMARY | 2019-09-01 19:52 | XMS REPORT | Summary of Care ---
:1955 Author Organization [facility] Address [address] [place] [address] Care Team Providers Name Role Phone Isis Neely MD Primary Care Provider Reason for Visit Reason Comments LAB WORK Auth/Cert Status Reason Specialty Diagnoses / Referred By Referred To Procedures Contact Contact Clinical Medical Diagnoses Need for hepatitis C screening test Need for hepatitis C screening test [facility] Lab Laboratory Procedures HCV,POTASSIUM [address] [facility] [place] [address] Encounter Details Date Type Department Care Team Description 11/20/2018 Supervisor Cereal Visit [facility] Claudio Neely MD [address] [place] [address] [place] [address] Hyperkalemia; Phlebotomy 1, [facility] Lab Need for hepatitis C screening test Lab-[address] [place] [address] Allergies Active Allergy Reactions Severity Noted Date Comments Hydromorphone (Bulk) Hallucinations 02/02/2018 Metronidazole Hcl Swelling 06/02/2015 Lisinopril Swelling, Cough 09/08/2017 Losartan Swelling 03/31/2018 Penicillins Hives 06/02/2015 documented as of this encounter (statuses as of 11/23/2018) Medications Medication Sig Dispensed Refills Start End [...] Use as directed, 1 Kit 0 Active (AircomUCH VERIO IQ METER) DX:E11.9 8 Kit Insulin [place], Use as directed, 100 Each 1 Active [...] as of this encounter (statuses as of 11/23/2018) Active Problems Problem Noted Date Neuropathy of [...] as of this encounter (statuses as of 11/23/2018) Resolved Problems Problem Noted Date Resolved Date Chest pain 01/17/2018 11/12/2018 Immunization counseling 01/23/2017 11/12/2018 Temporal headache 01/16/2017 11/12/[address] scan 12/06/2016 11/12/2018 documented as of this encounter (statuses as of 11/23/2018) Immunizations Name Administration Dates Next Due Influenza [...] Office Visit Family Medicine Monica Neely MD [address] [place] [phone] Health Maintenance Due Date Last Done Comments DTaP,Tdap,and Td Vaccines (1 - 1973 Tdap) [...] PNEUMOCOCCAL 0-64 YEARS COMBINED Completed 02/07/2018 SERIES HEPATITIS C (HCV) SCREEN Completed 11/20/2018 documented as of this encounter Procedures Procedure Name Priority Date/Time Associated Diagnosis Comme nts HCV ANTIBODY Routine 11/20/2018 10:28 AM Need for hepatitis C Results for this CDT screening test procedure are in the results section. POTASSIUM SERUM Routine 11/20/2018 10:28 AM Hyperkalemia Resul ts for this CDT procedure are i n the results section. documented in this encounter Results HCV ANTIBODY (11/20/2018 10:28 AM CDT) Pathologist Sig nature HCV Ab NEGATIVE [facility] HCV Semi-Quantitative 0.68 [facility] Specimen Blood Performing Organization Address City/State/Zipcode Phone Number [facility] CLIA: [id number], [address] [place], [place] [address] [facility] POTASSIUM SERUM (11/20/2018 10:28 AM CDT) Pathologist [facility] K 4.4 3.5 - 5.0 mmol/L [facility] Specimen Blood Performing Organization Address City/State/Zipcode Phone Number [facility] CLIA: [id number], [address] [place], [place] [address] documented in this encounter Visit Diagnoses Diagnosis Hyperkalemia Hyperpotassemia Need for hepatitis C screening test Special screening examination for other specified viral diseases documented in this encounter [facility] ([address]) [address] [place], [place] (Work) [address] documented as of this encounter
--- OUTSIDE RECORDS SUMMARY | 2019-09-01 19:52 | XMS REPORT | Summary of Care ---
:1955 Author Organization [facility] [employer] Address [address] [place] [address] Care Team Providers Name Role Phone Isis Neely MD Primary Care Provider Reason for Visit Reason Comments Diabetes Encounter Details Date Type Department Care Team Description 11/26/2018 Office Visit [facility] Family Florinda Rosalina Type 2 diabetes mellitus with hyperglycemia, unspecified whether long term care administrator insulin use (Primary Dx); Medicine - Anand Marinelli MD Essential hypertension; [address] [place] [address] [address] [place] [address] DR Hypercholesterolemia; [place], [place] Encounter for l gurinder-term (current) use of medications; [id number] Medication monitoring encounter [phone] Allergies Active Allergy Reactions Severity Noted Date Comments Hydromorphone (Bulk) Hallucinations 02/02/2018 Metronidazole Hcl Swelling 06/02/2015 Lisinopril Swelling, Cough 09/08/2017 Losartan Swelling 03/31/2018 Penicillins Hives 06/02/2015 documented as of this encounter (statuses as of 11/26/2018) Medications Medication Sig Dispensed Refills Start End [...] VERIO IQ METER) DX:E11.9 8 Kit Insulin [place], Use as directed, 100 Each 1 Active [...] as of this encounter (statuses as of 11/26/2018) Active Problems Problem Noted Date Neuropathy of both feet 11/12/2018 Myalgia 11/12/2018 Uncontrolled daytime somnolence 10/14/2018 Nonobstructive atherosclerosis of coronary artery 06/2018 Intolerance of continuous positive airway pressure (CP AP) ventilation 10/14/2018 COPD with acute exacerbation 02/02/2018 FRANYD (obstructive sleep apnea) 01/19/2018 SOTO (dyspnea on [...] as of this encounter (statuses as of 11/26/2018) Resolved Problems Problem Noted Date Resolved Date Chest pain 01/17/2018 11/12/2018 Immunization counseling 01/23/2017 11/12/2018 Temporal headache 01/16/2017 11/12/[address] scan 12/06/2016 11/12/2018 documented as of this encounter (statuses as of 11/26/2018) Immunizations Name Administration Dates Next Due Influenza [...] Sign Reading Time Taken Comments Blood Pressure 109/66 11/26/2018 8:06 AM CDT Pulse 97 11/26/2018 8:06 AM CDT Temperature 36.3 C (97.3 F) 11/26/2018 8:06 AM CDT Respiratory Rate - - Oxygen Saturation - - Inhaled Oxygen Concentration - - Weight 98 kg (216 lb) 11/26/2018 8:06 AM CDT Height - - Body Mass Index 33.83 11/10/2018 4:12 PM CDT documented in this encounter Patient Instructions Patient InstructionsRosalina Neely MD - 11/26/2018 8:15 AM CDT Lifestyle Changes for ControllingGERD When you have GERD, stomach acid feels as if its backing up toward your mouth. Whether or not youtake medicine to control your GERD, your symptoms can often be improved with lifestyle changes. Talkto your healthcare provider about the following suggestions. These suggestions may help you get relief from your symptoms. Raise your head Reflux is more likely to strike when youre lying down flat, because stomach fluid can flow backward more easily. Raising the head of your bed4 to 6 inches can help. To do this: Slide blocks or books under the legs at the head of your bed. Or, place a wedge under the mattress. Many [employer] can make a suitable wedge for you. The wedge should run from your waist to the top of your head. Dont just prop your head on several pillows. This increases pressure on your stomach. It can make GERD worse. Watch your eating habits Certain foods may increase the acid in your stomach or relax the lower esophageal sphincter. This makes GERD more likely. Its best to avoid the following if they cause you symptoms: Coffee, tea, and carbonated drinks (with and without caffeine) Fatty, fried, or spicy food Mint, chocolate, onions, and tomatoes Peppermint Any other foods that seem to irritate your stomach or cause you pain Relieve the pressure Tips include the following: Eat smaller meals, even if you have to eat more often. Dont lie down right after you eat. Wait a few hours for your stomach to empty. Avoid tight belts and tight-fitting clothes. Lose excess weight. Tobacco and alcohol Avoid smoking tobacco and drinking alcohol. They can make GERD symptoms worse. Date Last Reviewed: 10/13/201519999817-8543 [employer]. [address] [place] [address]. All rights reserved. This information is not intended as a substitute for professional medical care. Always follow your healthcare professional's instructions. documented in this encounter Progress Notes Lenora Boone - 11/26/2018 8:15 AM CDTVenipuncture Collection performed by clean technique. Total of 1 attempts were made. Slight pressureand a bandage/dressing were applied to the site(s). The patient experienced no complications. Specimens were sent processed to [facility] laboratories. Rosalina cloud MD - 11/26/2018 8:15 AM CDT Cc: Chief Complaint Patient presents with Diabetes, HTN, and HLD f/u HPI Amy Montalvo is a 63 year old female who presents today for DM2, HTN, and HLD follow up. Ofnote she has FRANDY w/ h/o uncontrolled daytime somnolence "a little better" since I increased her armodafinil dose last visit. She voices no adverse side effects since the dose adjustment. It has been very difficult for her work and function in general due to her daytime somnolence and chronic musculoskeletal pain. DM2 follow-up: Medication compliance: Good. Dietary compliance: Fair. Exercise frequency: None. Last Two A1C Results ([facility]/LC, POCT, [facility]) Recent Labs 01/18/18 0432 06/17/18 HGBA1C 8.0* -- [id number] -- 7.9* Glucose readings: 130s-150s fasting. Hypoglycemic episodes: None. Associated symptoms: None. Denies chest pain, visual changes, paresthesia of extremities, foot problems, polyuria, or polydipsia. Last Ophthalmology visit: 11/20/2018. HTN, HLD follow-up: Medication compliance: Good. Denies adverse medication side effects. Dietary compliance: See above. Exercise frequency: See above. Blood pressure readings: <130/<80. Associated symptoms: Intermittent BLE edema. Denies cp, SOB, palpitations, orthopnea, PND, syncope, claudication, dizziness, headaches, visual changes, or focal weakness. Cardiovascular screening (ex. EKG, stress test) in the past 3 years?: Yes. Allergies Amy is allergic to dilaudid [hydromorphone (bulk)]; flagyl [metronidazole hcl]; lisinopril; losartan; and pcn [penicillins]. Medications Outpatient Medications Prior to Visit Medication Sig Dispense Refill Armodafinil 50 mg Tab Take 2 tablets by mouth every morning. 60 tablet 2 gabapentin 100 mg capsule Take 1 capsule by mouth at bedtime. 90 capsule 1 glimepiride 4 mg tablet Take 1 tablet by mouth 2 (two) times daily with meals. glimepiride 4 mg tablet 2 tablet daily 180 tablet 1 tiZANidine 2 mg tablet Take 0.5-1 tablets by mouth every 8 (eight) hours as needed (muscle pain or spasm). 30 tablet 0 mesalamine 1.2 gram EC tablet 1 MOVANTIK 25 mg Tab TAKE 1 TABLET BY MOUTH ONCE DAILY 1 omeprazole 40 mg capsule metoprolol succinate XL 50 mg 24 hr [...] under the skin weekly. 12 Syringe 3 lancets 33 gauge Misc Use as directed. [...] Take 1 capsule by mouth daily. Insulin [place], Disposable, (CAREFINE PEN NEEDLE) 32 gauge x 5/32" Ndle Use as directed, once daily, DX:E11.9 100 Each 1 Blood-Glucose Meter (ONETOUCH VERIO IQ METER) Kit Use as directed, DX:E11.9 1 Kit 0 vitamin B-12 (VITAMIN B-12) 500 mcg [...] History: Procedure Laterality Date BOWEL RESECTION SECTION COLONOSCOPY ESOPHAGOGASTRODUODENOSCOPY 03/27/2017 Social History Socioeconomic History Marital [...] file Gets together: Not on file Attends zoroastrian service: Not on file Active member of [...] file Social History Narrative , 2 children [place] to [employer] Family History Problem Relation Age of Onset Alzheimers dementia Mother Diabetes Father Hypertension Father Pulmonary Sister lung Cancer Brother lung Thyroid Sister Review of Systems Constitutional: Positive for fatigue. HENT: Negative. Eyes: Negative. Respiratory: Negative. Cardiovascular: Positive for leg swelling. Gastrointestinal: Positive for abdominal pain (chronic). Genitourinary: Negative. Musculoskeletal: Positive for arthralgias and myalgias. Skin: Negative. Neurological: Negative. Psychiatric/Behavioral: Negative. Endocrine: Endocrine negative Vital Signs BP 109/66 (BP Location: Left arm, Patient Position: Sitting, BP CUFF SIZE: Adult Large) | Pulse 97| Temp 36.3 C (97.3 F) (Tympanic) | Wt 216 lb (98 kg) | BMI 33.83 kg/m Physical Exam Constitutional: She is oriented to person, place, and time. She appears well- developed and well-nourished. HENT: Mouth/Throat: Mucous membranes are normal. Eyes: Conjunctivae are normal. No scleral icterus. Right eye exhibits normal extraocular motion. Pupils are unequal. Neck: Neck supple. No JVD present. No thyromegaly present. Cardiovascular: Normal rate, regular rhythm, normal heart sounds and intact distal pulses. Exam reveals no gallop and no friction rub. No murmur heard. Pulmonary/Chest: Effort normal and breath sounds normal. Abdominal: Soft. Bowel sounds are normal. She exhibits no distension and no mass. There is no tenderness. Musculoskeletal: She exhibits no edema. Lymphadenopathy: She has no cervical adenopathy. Neurological: She is alert and oriented to person, place, and time. She has normal reflexes. Skin: Skin is warm and dry. No rash noted. No pallor. Psychiatric: She has a normal mood and affect. Nursing note and vitals reviewed. Labs Chief Of Service Visit on 11/20/2018 Component Date Value K 11/20/2018 4.4 HCV Ab 11/20/2018 Negative HCV Semi-Quantitative 11/20/2018 0.68 Chief Of Service Visit on 10/29/2018 Component Date Value APPEARANCE 10/29/2018 Slightly Cloudy* COLOR 10/29/2018 [place]* PH 10/29/2018 6.0 SP GRAVITY 10/29/2018 1.025 [...] eGFR Calculation (Non-Af* 10/29/2018 50.7 eGFR Calculation (Mariebl* 10/29/2018 61.4 CK 10/29/2018 61 MAGNESIUM 10/29/2018 [...] Diagnoses and all orders for this visit: Type 2 diabetes mellitus with hyperglycemia, unspecified whether long term care administrator insulin use Continue current anti-diabetic medication(s). Reviewed the principles of following a diabetic diet including the concept of glycemic index. Exercise regularly. Self monitor glucose once daily beforebreakfast and bring record to each visit. See the Card Reader at least annually for diabetic eye exam. See the Pre Sales Architect for routine foot care and diabetic shoes if appropriate. - COMP. METABOLIC PANEL (72855) - GLYCOSYLATED HEMOGLOBIN (A1C) - LIPID PANEL (31298)(TOTAL CHOLESTEROL, TRIGLYCERIDES, HDL) - MICROALBUMIN URINE Essential hypertension Bp is at goal. Continue current medication(s). Low sodium diet/DASH diet. Exercise regularly. The patient was instructed to self monitor her blood pressure once daily varying the times when it is checked and to bring the record of readings to each office visit. The patient should follow-up soonerif the blood pressure is trending >/=130/80. - COMP. METABOLIC PANEL (13057) Hypercholesterolemia Continue current lipid-lowering pharmacotherapy. Low fat, low cholesterol diet was recommended/reviewed. Exercise regularly. - COMP. METABOLIC PANEL (94452) - LIPID PANEL (85134)(TOTAL CHOLESTEROL, TRIGLYCERIDES, HDL) Encounter for long-term (current) use of medications, Medication monitoring encounter - COMP. METABOLIC PANEL (63480) - GLYCOSYLATED HEMOGLOBIN (A1C) - LIPID PANEL (74277)(TOTAL CHOLESTEROL, TRIGLYCERIDES, HDL) FRANDY, CPAP intolerance, Uncontrolled daytime somnolence Stable. Continue current pharmacotherapy. The patient understands she should follow-up sooner if there is any rebound in her symptoms. Plan of care, desired health behaviors, goals, Ddx, and any prescribed medications were discussed with the patient. This visit did not involve counseling and coordination that comprised more than 50% of the visit time. Education resources and self-management tools were provided and reviewed with the AVS. Patient/guardian/family verbalized understanding and agrees to the plan of care. Barriers tocare: None. Ability to manage care: Good. Advanced care planning (living will) information was not given/offered to the patient to review for discussion at a future visit. If applicable, the [facility] database was accessed to review any controlled substance prescription claims data. If the patient is taking prescribed medications, the [employer] prescription claims data in [employer] was reviewed to assess patient compliance with the medication treatment plan. Follow-up: Return in about 4 months (around 03/28/2019) for diabetic check (fasting). Follow-up sooner if any problems or concerns. Scribe Attestation I, Pearl Garland am scribing for, and in the presence of, Rosalina Neely MD who performed the services described here-in. Pearl Garland November 26, 2018, 9:26 AM Physician Attestation I, Rosalina Neely MD, personally performed the services described in this documentation , as scribed by, Pearl Garland in my presence and it is both accurate and complete. Rosalina Neely MD November 26, 2018, 9:26 AM documented in this encounter Plan of Treatment Date Type Specialty Care Team Description 03/29/2019 Office Visit Family Medicine Monica Neely MD [address] [place] [address] [phone] Name Type Priority Associated Diagnoses Date/Ti me COMP. METABOLIC PANEL LAB Routine Type 2 diabetes rajendra litus 11/26/2018 8:41 AM (24526) with hyperglycemia, CDT unspecified whether detention insulin use Essential hypert ension Hypercholesterol emia Encounter for long-term (current) use of medications Medication monitoring encounter GLYCOSYLATED HEMOGLOBIN LAB Routine Type 2 diabetes m ellitus 11/26/2018 8:41 AM (A1C) with hyperglycemia, CDT unspecified whether detention insulin use Encounter for long-term (current) use of medications Medication monitoring encounter LIPID PANEL (64325)(TOTAL LAB Routine Type 2 diabetes mellitus 11/26/2018 8:41 AM CHOLESTEROL, with hyperglycemia, CDT TRIGLYCERIDES, HDL) unspecified whether l gurinder term insulin use Hypercholesterol emia Encounter for long-term (current) use of medications Medication monitoring encounter MICROALBUMIN URINE LAB Routine Type 2 [facility] 11/26/2018 8:41 AM with hyperglycemia, CDT unspecified whether long term care administrator insulin use Name Type Priority Associated Diagnoses Order S chedule COMP. METABOLIC PANEL LAB Routine Type 2 diabetes 1 O ccurrences starting (44374) mellitus with 11/26/2018 unt il hyperglycemia, 01/25/2019 unspecified whether long term care administrator insuli n use Essential hypert ension Hypercholesterol emia Encounter for long-term (current) use of medications Medication monitoring encounter GLYCOSYLATED HEMOGLOBIN LAB Routine Type 2 diabetes 1 Occurrences starting (A1C) mellitus with 11/26/2018 unt il hyperglycemia, 01/25/2019 unspecified whether long term care administrator insuli n use Encounter for long-term (current) use of medications Medication monitoring encounter LIPID PANEL (45731)(TOTAL LAB Routine Type 2 diabetes 1 Occurrences starting CHOLESTEROL, mellitus with 11/26/2018 unt il TRIGLYCERIDES, HDL) hyperglycemia, 2018 unspecified whether detention insuli n use Hypercholesterol emia Encounter for long-term (current) use of medications Medication monitoring encounter MICROALBUMIN URINE LAB Routine Type 2 diabetes 1 Occu rrences starting mellitus with 11/26/2018 unt il hyperglycemia, 01/25/2019 unspecified whether long term care administrator insulin use Health Maintenance Due Date Last Done Comments DTaP,Tdap,and Td Vaccines (1 - 1973 Tdap) PAP SMEAR 11/16/1975 MAMMOGRAM 1994 Zoster Recombinant Vaccine 2004 (SHINGRIX) (1 of 2) URINE MICROALBUMIN 02/12/2018 02/12/2017 LDL-C 06/26/2018 06/26/2017, 02/12/2017 INFLUENZA VACCINE (#1) 2018 02/07/2018 HgA1C 12/18/2018 06/17/2018, 01/18/2018, 10/21/2017, Additional history exists LUNG CANCER SCREEN: Recommended 02/03/2019 02/03/2018, 0806/2017, for age 55-80 with 30 + pack year 11/14/2016 history FOOT EXAM 06/18/2019 06/17/2018, 06/17/2018, 09/10/2017, Additional history exists CREATININE (SERUM) 10/30/2019 10/29/2018, 09/10/2018, 09/02/2018, Additional history exists EYE EXAM 11/21/2019 11/20/2018, 06/12/2018 COLONOSCOPY 02/25/2027 02/25/2017 PNEUMOCOCCAL 0-64 YEARS COMBINED Completed 02/07/2018 SERIES HEPATITIS C (HCV) SCREEN Completed 11/20/2018 documented as of this encounter Results Not on filedocumented in this encounter Visit Diagnoses Diagnosis Type 2 diabetes mellitus with hyperglyce valerie, unspecified whether detention insulin use - Primary Essential hypertension Unspecified essential hypertension Hypercholesterolemia Pure hypercholesterolemia Encounter for long-term (current) use of medications Encounter for long-term (current) use of other medications Medication monitoring encounter Encounter for therapeutic drug monitorin g documented in this encounter documented as of this encounter
--- OUTSIDE RECORDS SUMMARY | 2019-09-01 19:53 | XMS REPORT | Summary of Care ---
:1955 Author Organization [facility] [email or web address] Address [address] [place] [address] Care Team Providers Name Role Phone Isis Neely MD Primary Care Provider Reason for Visit Reason Comments Diabetes Encounter Details Date Type Department Care Team Description 11/26/2018 Office Visit [facility] Family Florinda Rosalina Type 2 diabetes mellitus with hyperglycemia, unspecified whether intermodal customer service insulin use (Primary Dx); Medicine - Anand Marinelli MD Essential hypertension; [address] [place] [address] [address] [place] [address] DR Hypercholesterolemia; [place], [place] Encounter for l gurinder-term (current) use of medications; [id number] Medication monitoring encounter [phone] Allergies Active Allergy Reactions Severity Noted Date [...] VERIO IQ METER) DX:E11.9 8 Kit Insulin [place], Use as directed, 100 Each 1 Active [...] place a wedge under the mattress. Many [employer] can make a suitable wedge for you. [...] make GERD symptoms worse. Date Last Reviewed: 10/13/201519994488-3261 [employer]. [address] [place] [address]. All rights reserved. This information is not [...] no complications. Specimens were sent processed to [facility] laboratories. Rosalina cloud MD - 11/26/2018 8:15 [...] Labs 01/18/18 0432 06/17/18 HGBA1C 8.0* -- [id number] -- 7.9* Glucose readings: 130s-150s fasting. Hypoglycemic [...] Take 1 capsule by mouth daily. Insulin [place], Disposable, (CAREFINE PEN NEEDLE) 32 gauge x [...] file Gets together: Not on file Attends sikhism service: Not on file Active member of [...] file Social History Narrative , 2 children [place] to [employer] Family History Problem Relation Age of Onset [...] affect. Nursing note and vitals reviewed. Labs Press Feeder Visit on 11/20/2018 Component Date Value K 11/20/2018 4.4 HCV Ab 11/20/2018 Negative HCV Semi-Quantitative 11/20/2018 0.68 Press Feeder Visit on 10/29/2018 Component Date Value APPEARANCE 10/29/2018 Slightly Cloudy* COLOR 10/29/2018 [place]* PH 10/29/2018 6.0 SP GRAVITY 10/29/2018 1.025 [...] 2 diabetes mellitus with hyperglycemia, unspecified whether intermodal customer service insulin use Continue current anti-diabetic medication(s). Reviewed the principles of following a diabetic diet including the concept of glycemic index. Exercise regularly. Self monitor glucose once daily beforebreakfast and bring record to each visit. See the Chief Of Safety And Protection at least annually for diabetic eye exam. See the Metal Control Coordinator for routine foot care and diabetic shoes if appropriate. - COMP. METABOLIC PANEL (48187) - GLYCOSYLATED HEMOGLOBIN (A1C) - LIPID PANEL (79875)(TOTAL CHOLESTEROL, TRIGLYCERIDES, HDL) - MICROALBUMIN URINE Essential [...] is trending >/=130/80. - COMP. METABOLIC PANEL (37082) Hypercholesterolemia Continue current lipid-lowering pharmacotherapy. Low fat, low cholesterol diet was recommended/reviewed. Exercise regularly. - COMP. METABOLIC PANEL (46878) - LIPID PANEL (56970)(TOTAL CHOLESTEROL, TRIGLYCERIDES, HDL) Encounter for long-term (current) use of medications, Medication monitoring encounter - COMP. METABOLIC PANEL (11803) - GLYCOSYLATED HEMOGLOBIN (A1C) - LIPID PANEL (07818)(TOTAL CHOLESTEROL, TRIGLYCERIDES, HDL) FRANDY, CPAP intolerance, Uncontrolled [...] at a future visit. If applicable, the [facility] database was accessed to review any controlled substance prescription claims data. If the patient is taking prescribed medications, the [employer] [address] prescription claims data in [employer] was reviewed to assess patient compliance with [...] Office Visit Family Medicine Monica Neely MD [address] [place] [address] [phone] Name Type Priority Associated Diagnoses Date/Ti me COMP. METABOLIC PANEL LAB Routine Type 2 diabetes rajendra litus 11/26/2018 8:41 AM (64999) with hyperglycemia, CDT unspecified whether penitentiary insulin use Essential hypert ension Hypercholesterol emia Encounter for long-term (current) use of medications Medication monitoring encounter GLYCOSYLATED HEMOGLOBIN LAB Routine Type 2 diabetes m ellitus 11/26/2018 8:41 AM (A1C) with hyperglycemia, CDT unspecified whether penitentiary insulin use Encounter for long-term (current) use of medications Medication monitoring encounter LIPID PANEL (85879)(TOTAL LAB Routine Type 2 diabetes mellitus 11/26/2018 8:41 AM CHOLESTEROL, with hyperglycemia, CDT TRIGLYCERIDES, HDL) unspecified whether l gurinder term insulin use Hypercholesterol emia Encounter for long-term (current) use of medications Medication monitoring encounter MICROALBUMIN URINE LAB Routine Type 2 [facility] 11/26/2018 8:41 AM with hyperglycemia, CDT unspecified whether intermodal customer service insulin use Name Type Priority Associated Diagnoses Order S chedule COMP. METABOLIC PANEL LAB Routine Type 2 diabetes 1 O ccurrences starting (11527) mellitus with 11/26/2018 unt il hyperglycemia, 01/25/2019 unspecified whether intermodal customer service insuli n use Essential hypert ension Hypercholesterol emia Encounter for long-term (current) use of medications Medication monitoring encounter GLYCOSYLATED HEMOGLOBIN LAB Routine Type 2 diabetes 1 Occurrences starting (A1C) mellitus with 11/26/2018 unt il hyperglycemia, 01/25/2019 unspecified whether intermodal customer service insuli n use Encounter for long-term (current) use of medications Medication monitoring encounter LIPID PANEL (08529)(TOTAL LAB Routine Type 2 diabetes 1 Occurrences starting CHOLESTEROL, mellitus with 11/26/2018 unt il TRIGLYCERIDES, HDL) hyperglycemia, 2018 unspecified whether penitentiary insuli n use Hypercholesterol emia Encounter for long-term (current) use of medications Medication monitoring encounter MICROALBUMIN URINE LAB Routine Type 2 diabetes 1 Occu rrences starting mellitus with 11/26/2018 unt il hyperglycemia, 01/25/2019 unspecified whether intermodal customer service insulin use Health Maintenance Due Date Last [...] diabetes mellitus with hyperglyce valerie, unspecified whether penitentiary insulin use - Primary Essential hypertension Unspecified essential hypertension Hypercholesterolemia Pure hypercholesterolemia Encounter for long-term (current) use of medications Encounter for long-term (current) use of other medications Medication monitoring encounter Encounter for therapeutic drug monitorin g documented in this encounter documented as of this encounter
--- OUTSIDE RECORDS SUMMARY | 2019-09-01 19:54 | XMS REPORT | Summary of Care ---
:1955 Author Organization [facility] [employer] ([employer]) Address [address] [place] [address] Care Team Providers Name Role Phone Isis Neely MD Primary Care Provider Reason for Visit Reason Comments New Medication Medication Dose Change Encounter Details Date Type Department Care Team Description 12/02/2018 Telephone [facility] Family Rosalina Neeyl N ew Medication; Medicine - Anand FERRARO Medication Dose Change [address] [address] [address] [facility] [place] [phone] Allergies Active Allergy Reactions Severity Noted Date Comments Hydromorphone (Bulk) Hallucinations 02/02/2018 Metronidazole Hcl Swelling 06/02/2015 Lisinopril Swelling, Cough 09/08/2017 Losartan Swelling 03/31/2018 Penicillins Hives 06/02/2015 documented as of this encounter (statuses as of 12/02/2018) Medications Medication Sig Dispensed Refills Start End [...] IQ directed, 18 METER) Kit DX:E11.9 Insulin [place], Use as 100 Each 1 10/25/19 Act [...] 19 Hypercholesterolemia BEDTIME STOP TAKING ATORVASTATIN dulaglutide (TRULICITY) inject 1.5 mg 12 Syringe 3 06/18/19 [...] 09/10/19 Active BY MOUTH ONCE 19 DAILY gabapentin 100 mg Take 1 capsule 90 [...] daytime morning. somnolence, FRANDY (obstructive sleep apnea) glimepiride 4 mg 1 tablet po qAM 135 tablet 1 12/03/19 Active tabletIndications: Type with breakfast, 19 2 diabetes mellitus 1/2 tablet po with hyperglycemia, qPM with dinner unspecified whether terminologist insulin use repaglinide 0.5 mg Take 1 tablet 270 tablet 1 12/03/19 Active tabletIndications: Type by mouth 3 19 2 diabetes mellitus (three) times with hyperglycemia, daily before unspecified whether meals. terminologist insulin use glimepiride 4 mg tablet Take 1 tablet 180 tablet 1 11/11/19 0 Discontinued by mouth 2 19 019 (two) times daily with meals. glimepiride 4 mg tablet 2 tablet daily documented as of this encounter (statuses as of 12/02/2018) Active Problems Problem Noted Date Neuropathy of [...] as of this encounter (statuses as of 12/02/2018) Resolved Problems Problem Noted Date Resolved Date Chest pain 01/17/2018 11/12/2018 Immunization counseling 01/23/2017 11/12/2018 Temporal headache 01/16/2017 11/12/[address] scan 12/06/2016 11/12/2018 documented as of this encounter (statuses as of 12/02/2018) Immunizations Name Administration Dates Next Due Influenza [...] Office Visit Family Medicine Monica Neely MD [address] [place] [address] [phone] Health Maintenance Due Date Last Done Comments DTaP,Tdap,and Td Vaccines (1 - 1973 Tdap) PAP SMEAR 11/16/1975 MAMMOGRAM 1994 Zoster Recombinant Vaccine 2004 (SHINGRIX) (1 of 2) INFLUENZA VACCINE (#1) 2018 02/07/2018 LUNG CANCER SCREEN: Recommended 02/03/2019 02/03/2018, 06/2017, for age 55-80 with 30 + pack year 11/14/2016 history HgA1C 05/29/2019 11/26/2018, 06/17/2018, 01/18/2018, Additional history exists FOOT EXAM 06/18/2019 06/17/2018, 06/17/2018, 09/10/2017, Additional history exists EYE EXAM 11/21/2019 11/20/2018, 06/12/2018 CREATININE (SERUM) 11/27/2019 11/26/2018, 10/29/2018, 09/10/2018, Additional history exists LDL-C 11/27/2019 11/26/2018, 06/26/2017, 02/12/2017 URINE MICROALBUMIN 11/27/2019 11/26/2018, 02/12/2017 COLONOSCOPY 02/25/2027 02/25/2017 PNEUMOCOCCAL 0-64 YEARS COMBINED Completed 02/07/2018 SERIES HEPATITIS C (HCV) SCREEN Completed 11/20/2018 documented as of this encounter Results Not on filedocumented in this encounter Visit Diagnoses Diagnosis Type 2 diabetes mellitus with hyperglyce valerie, unspecified whether terminologist insulin use - Primary documented in this encounter Insurance Payer Benefit Plan / Group Subscriber ID Effective Dates Phone Address Type AETNA AETNA [facility] [id number] 2013-Present PPO documented as of this encounter
--- OUTSIDE RECORDS SUMMARY | 2019-09-01 19:55 | XMS REPORT | Summary of Care ---
:1955 Author Organization [facility] [employer] Address [address] [place] [address] Care Team Providers Name Role Phone Isis Neely MD Primary Care Provider Reason for Visit Reason Comments Rx Concern/Question pt requesting 90 day supply Encounter Details Date Type Department Care Team Description 12/09/[address] [facility] Family Rosalina Neely R x Concern/Question Medicine - Anand FERRARO (pt requesting 90 day [address] [facility] [address] [facility] [address] supply) [place] [phone] Allergies Active Allergy Reactions Severity Noted Date Comments Hydromorphone (Bulk) Hallucinations 02/02/2018 Metronidazole Hcl Swelling 06/02/2015 Lisinopril Swelling, Cough 09/08/2017 Losartan Swelling 03/31/2018 Penicillins Hives 06/02/2015 documented as of this encounter (statuses as of 12/09/2018) Medications Medication Sig Dispensed Refills Start End [...] IQ directed, 18 METER) Kit DX:E11.9 Insulin [place], Use as 100 Each 1 10/25/19 Act [...] 19 Hypercholesterolemia BEDTIME STOP TAKING ATORVASTATIN dulaglutide ([facility]) inject 1.5 mg 12 Syringe 3 [...] (muscle pain or spasm). glimepiride 4 mg 1 tablet po qAM 135 tablet 1 12/03/19 Active tabletIndications: Type with breakfast, 19 2 diabetes mellitus 1/2 tablet po with hyperglycemia, qPM with dinner unspecified whether ad terminal makeup operator insulin use repaglinide 0.5 mg Take 1 tablet 270 tablet 1 12/03/19 Active tabletIndications: Type by mouth 3 19 2 diabetes mellitus (three) times with hyperglycemia, daily before unspecified whether meals. ad terminal makeup operator insulin use Armodafinil 50 mg Take 2 tablets 180 tablet 1 12/10/19 Active TabIndications: by mouth every 19 Uncontrolled daytime morning. somnolence, FRANDY (obstructive sleep apnea) Armodafinil 50 mg Take 2 tablets 60 tablet 2 11/12/19 Discontinued TabIndications: by mouth every 19 019 Uncontrolled daytime morning. somnolence, FRANDY (obstructive sleep apnea) documented as of this encounter (statuses as of 12/09/2018) Active Problems Problem Noted Date Neuropathy of [...] as of this encounter (statuses as of 12/09/2018) Resolved Problems Problem Noted Date Resolved Date Chest pain 01/17/2018 11/12/2018 Immunization counseling 01/23/2017 11/12/2018 Temporal headache 01/16/2017 11/12/[address] scan 12/06/2016 11/12/2018 documented as of this encounter (statuses as of 12/09/2018) Immunizations Name Administration Dates Next Due Influenza [...] Office Visit Family Medicine Monica Neely MD [address] [place] [phone] Health Maintenance Due Date Last Done [...] encounter Visit Diagnoses Diagnosis Uncontrolled daytime somnolence Other alteration of consciousness FRANDY (obstructive sleep apnea) Obstructive sleep apnea (adult) (pediatr ic) documented in this encounter Insurance Payer Benefit Plan / Group Subscriber ID Effective Dates Phone Address Type AETNA AETNA [facility] [id number] 2013-Present PPO documented as of this encounter
--- OUTSIDE RECORDS SUMMARY | 2019-09-01 19:55 | XMS REPORT | Summary of Care ---
:1955 Author Organization [facility] [employer] [facility] Address [address] [place] [address] Care Team Providers Name Role Phone Isis Neely MD Primary Care Provider Encounter Details Date Type Department Care Team Description 12/02/2018 Orders Only [facility] Doctor Unassigned, No [address] [facility] [place] [address] [address] [place] [address] Allergies Active Allergy Reactions Severity Noted Date Comments Hydromorphone (Bulk) Hallucinations 02/02/2018 Metronidazole Hcl Swelling 06/02/2015 Lisinopril Swelling, Cough 09/08/2017 Losartan Swelling 03/31/2018 Penicillins Hives 06/02/2015 documented as of this encounter (statuses as of 12/10/2018) Medications Medication Sig Dispensed Refills Start End [...] Use as directed, 1 Kit 0 Active ([employer] VERIO IQ METER) DX:E11.9 8 Kit Insulin [place], Use as directed, 100 Each 1 07/13/201 [...] BEDTIME 9 Hypercholesterolemia STOP TAKING ATORVASTATIN [facility]ulaglutide ([facility]) inject 1.5 mg 12 Syringe 3 [...] BY 1 Active MOUTH ONCE DAILY 9 gabapentin 100 mg Take 1 capsule by 90 capsule 1 Active capsuleIndications: mouth at bedtime. 9 Neuropathy of both feet tiZANidine 2 mg Take 0.5-1 30 tablet 0 Act jake tabletIndications: tablets by mouth 9 Myalgia every 8 (eight) hours as needed (muscle pain or spasm). glimepiride 4 mg 1 tablet po qAM 135 tablet 1 Active tabletIndications: Type 2 with breakfast, 9 diabetes mellitus with 1/2 tablet po qPM hyperglycemia, with dinner unspecified whether watcher automat long goods insulin use repaglinide 0.5 mg Take 1 tablet by 270 tablet 1 Active tabletIndications: 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 unspecified whether mcc insulin use documented as of this encounter (statuses as of 12/10/2018) Active Problems Problem Noted Date Neuropathy of [...] as of this encounter (statuses as of 12/10/2018) Resolved Problems Problem Noted Date Resolved Date Chest pain 01/17/2018 11/12/2018 Immunization counseling 01/23/2017 11/12/2018 Temporal headache 01/16/2017 11/12/[address] scan 12/06/2016 11/12/2018 documented as of this encounter (statuses as of 12/10/2018) Immunizations Name Administration Dates Next Due Influenza [...] Office Visit Family Medicine Monica Neely MD [address] [place] [phone] Health Maintenance Due Date Last Done [...] Name Priority Date/Time Associated Diagnosis Comme nts AUTHORIZATION FOR RELEASE Routine 12/02/2018 12:01 AM OF PHI CDT documented in this encounter Results Not on filedocumented in this encounter Insurance Payer Benefit Plan / Group Subscriber ID Effective Dates Phone Address Type AETNA AETNA [facility] [id number] 2013-Present PPO documented as of this encounter
--- OUTSIDE RECORDS SUMMARY | 2019-09-01 19:55 | XMS REPORT | Summary of Care ---
:1955 Author Organization [facility] Address [address] [place] [address] Care Team Providers Name Role Phone Isis Neely MD Primary Care Provider Reason for Referral Radiology Services (Routine) Status Reason Specialty Diagnoses / Referred By Referred To Procedures Contact Contact Closed Diagnostic Diagnoses Steatosis of liver Cirrhosis of liver without ascites, unspecified hepatic cirrhosis type Gomez, Colt Radiology Procedures US ABDOMEN COMPLETE [place] [address] Radiology Services (Routine) Status Reason Specialty Diagnoses / Referred By Referred To Procedures Contact Contact Closed Diagnostic Diagnoses Steatosis of liver Cirrhosis of liver without ascites, unspecified hepatic cirrhosis type Gomez, Colt Radiology Procedures US ABDOMEN COMPLETE [place] [address] Reason for Visit Radiology Services (Routine) Status Reason Specialty Diagnoses / Referred By Referred To Procedures Contact Contact Closed Diagnostic Diagnoses Steatosis of liver Cirrhosis of liver without ascites, unspecified hepatic cirrhosis type Gomez, Colt Radiology Procedures US ABDOMEN COMPLETE [place] [address] Encounter Details Date Type Department Care Team Description 12/11/2018 Hospital Encounter [facility] Akilah Gomez Arrived [facility] [address] [place] [address] [place] [address] [place] [address] [phone] Allergies Active Allergy Reactions Severity Noted Date Comments Hydromorphone (Bulk) Hallucinations 02/02/2018 Metronidazole Hcl Swelling 06/02/2015 Lisinopril Swelling, Cough 09/08/2017 Losartan Swelling 03/31/2018 Penicillins Hives 06/02/2015 documented as of this encounter (statuses as of 12/12/2018) Medications Medication Sig Dispensed Refills Start End [...] Use as directed, 1 Kit 0 Active (official.fmUCH VERIO IQ METER) DX:E11.9 8 Kit Insulin [place], Use as directed, 100 Each 1 Active [...] po qPM hyperglycemia, with dinner unspecified whether custodial insulin use repaglinide 0.5 mg Take 1 tablet by 270 tablet 1 Active tabletIndications: 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 unspecified whether custodial insulin use Armodafinil 50 mg Take 2 tablets by 180 tablet 1 Active TabIndications: mouth every 9 Uncontrolled daytime morning. somnolence, FRANDY (obstructive sleep apnea) documented as of this encounter (statuses as of 12/12/2018) Active Problems Problem Noted Date Neuropathy of [...] as of this encounter (statuses as of 12/12/2018) Resolved Problems Problem Noted Date Resolved Date Chest pain 01/17/2018 11/12/2018 Immunization counseling 01/23/2017 11/12/2018 Temporal headache 01/16/2017 11/12/[address] scan 12/06/2016 11/12/2018 documented as of this encounter (statuses as of 12/12/2018) Immunizations Name Administration Dates Next Due Influenza [...] Office Visit Family Medicine Monica Neely MD [address] [place] [phone] Health Maintenance Due Date Last Done Comments DTaP,Tdap,and Td Vaccines (1 - 1973 Tdap) PAP SMEAR 11/16/1975 MAMMOGRAM 1994 Zoster Recombinant Vaccine 2004 (SHINGRIX) (1 of 2) INFLUENZA VACCINE (#1) 2018 02/07/2018 LUNG CANCER SCREEN: Recommended 02/03/2019 02/03/2018, 08/06/2017, for age 55-80 with 30 + pack [...] Priority Date/Time Associated Diagnosis Comme nts US ABDOMEN COMPLETE Routine 12/11/2018 4:22 PM Steatosi s of liver Results for this CDT Cirrhosis of liver procedure are in without ascites, the results unspecified hepatic section. cirrhosis type documented in this encounter Results US ABDOMEN COMPLETE (12/11/2018 4:22 PM CDT) Specimen Impressions Performed At Impression: PACS/VR/DOSE 1.Fibrofatty infiltration of the liver without dulce dence of focal mass. 2. Tiny renal cortical cysts bilaterally . 3. The remainder is unremarkable. Location Code: 94952 Narrative Performed At Clinical statement:Steatosis of liverCirrhosis of liver without PACS/VR/DOSE ascites, unspecified hepatic cirrhosis type Recei marco faxed orders to call and schedule a abd ultrasound Study: Abdominal ultrasound. Technique: Real time grayscale and color Doppler imagi ng was performed with images permanently save to the PACS serv er. Comparison:None Ordering physician: COLT GOMEZ Findings: Hepatic echotexture is coarse and somewhat e chogenic compatible fibrofatty infiltration. Liver measures 19 cm diameter .No focal mass is seen.The visualized pancreatic tissu e is normal.The visualized abdominal aorta, main portal vein, IVC a nd proximal hepatic veins are unremarkable.The gallbladder is normal in size. Wall thickness measures less than 3 mm.No stones or sludge are seen.No sonographic Null sign is seen.No duct dilatation is identified.The c ommon duct measures less than 6 mm.The right kidney measures 10.8 cm. The l eft kidney measures 12.5 cm.No hydronephrosis or echogen ic stone is seen.No mass is identified. Tiny cortical cyst is seen on the right an d left measures less than 1 cm.Cortical thickness and echotexture is no rmal.The spleen measures 9.6 cm.No fluid collections are identified. Procedure Note [facility], Radiant Results Inft User - 2018 4:37 PM CDT Clinical statement:Steatosis of liver Cirrhosis of liver without ascites, unspecified hepatic cirrhosis type Recei marco faxed orders to call and schedule a abd ultrasound Study: Abdominal ultrasound. Technique: Real time grayscale and color Doppler imaging was performed with images permanently save to the PACS serv er. Comparison:None Ordering physician: COLT GOMEZ Findings: Hepatic echotexture is coarse and somewhat echogenic compatible fibrofatty infiltration. Liver measures 19 cm diameter. No focal mass is seen. The visualized pancreatic tissue is normal. The visualized abdominal aorta, main portal vein, IVC a nd proximal hepatic veins are unremarkable. The gallbladder is normal in size. Wall thickness measures less than 3 mm. No stones or sludge are seen. No sonographic Null sign is seen. No duct dilatation is identifi ed. The common duct measures less than 6 mm. The right kidney measures 10 .8 cm. The left kidney measures 12.5 cm. No hydronephrosis or echogenic stone is seen. No mass is identified. Tiny cortical cyst is seen o n the right and left measures less than 1 cm. Cortical thickness and echot exture is normal. The spleen measures 9.6 cm. No fluid collections a re identified. IMPRESSION Impression: 1. Fibrofatty infiltration of the liver without evidence of focal mass. 2. Tiny renal cortical cysts bilaterally . 3. The remainder is unremarkable. Location Code: [address] [facility] Organization Address City/State/Zipcode Phone Number PACS/VR/DOSE documented in this encounter Visit Diagnoses Diagnosis Steatosis of liver Other chronic nonalcoholic liver disease Cirrhosis of liver without ascites, unsp ecified hepatic cirrhosis type documented in this encounter [facility] [facility] [address] [place] (Work) [id number] documented as of this encounter
--- OUTSIDE RECORDS SUMMARY | 2019-09-01 19:56 | XMS REPORT | Summary of Care ---
:1955 Author Organization [facility] [employer] Address [address] [place] [address] Care Team Providers Name Role Phone Isis Neely MD Primary Care Provider Reason for Visit Reason Comments Forms Encounter Details Date Type Department Care Team Description 12/25/2018 Office Visit [facility] Family Rosalina Neely Unco ntrolled daytime somnolence (Primary Dx); Medicine - Anand Marinelli MD Uncontrolled type 2 diabetes mellitus wi thout complication, without long-term current use of insulin; [facility] [address] [facility] [address] [facility] Severe obstructive sleep apnea; Drive [place], [place] Essential hypertension; [place] [address] Mild persistent asthma without complicat ion; [address] Chronic antral gastritis; [phone] Chronic musculo skeletal pain; (Fax) Encounter for c ompletion of form with patient Allergies Active Allergy Reactions Severity Noted Date Comments Hydromorphone (Bulk) Hallucinations 02/02/2018 Metronidazole Hcl Swelling 06/02/2015 Lisinopril Swelling, Cough 09/08/2017 Losartan Swelling 03/31/2018 Penicillins Hives 06/02/2015 documented as of this encounter (statuses as of 12/27/2018) Medications Medication Sig Dispensed Refills Start End [...] Use as directed, 1 Kit 0 Active (Bitfone CorporationUCH VERIO IQ METER) DX:E11.9 8 Kit Insulin [place], Use as directed, 100 Each 1 Active [...] mg 1 tablet po qAM 135 tablet Active tabletIndications: Type 2 with breakfast, 9 diabetes mellitus with 1/2 tablet po qPM hyperglycemia, with dinner unspecified whether halfway insulin use repaglinide 0.5 mg Take 1 tablet by 270 tablet 1 Active tabletIndications: 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 unspecified whether continuous churn buttermaker insulin use Armodafinil 50 mg Take 2 tablets by 180 tablet 1 Active TabIndications: mouth every 9 Uncontrolled daytime morning. somnolence, FRANDY (obstructive sleep apnea) documented as of this encounter (statuses as of 12/27/2018) Active Problems Problem Noted Date Neuropathy of both feet 11/12/2018 Myalgia 11/12/2018 Uncontrolled daytime somnolence 10/14/2018 Nonobstructive atherosclerosis of coronary artery 06/2018 Intolerance of continuous positive airway pressure (CP AP) ventilation 10/14/2018 Mild persistent asthma without complication 02/02/2018 FRANDY (obstructive sleep apnea) 01/19/2018 SOTO [...] as of this encounter (statuses as of 12/27/2018) Resolved Problems Problem Noted Date Resolved Date Chest pain 01/17/2018 11/12/2018 Immunization counseling 01/23/2017 11/12/2018 Temporal headache 01/16/2017 11/12/[address] scan 12/06/2016 11/12/2018 documented as of this encounter (statuses as of 12/27/2018) Immunizations Name Administration Dates Next Due Influenza [...] Sign Reading Time Taken Comments Blood Pressure 141/82 12/25/2018 5:19 PM CDT Pulse 91 12/25/2018 5:19 PM CDT Temperature 36.6 C (97.8 F) 12/25/2018 4:34 PM CDT Respiratory Rate - - Oxygen Saturation - - Inhaled Oxygen Concentration - - Weight 100.2 kg (221 lb) 12/25/2018 4:34 PM CDT Height 170.2 cm (5' 7") 12/25/2018 4:34 PM CDT Body Mass Index 34.61 12/25/2018 4:34 PM CDT documented in this encounter Progress Notes Rosalina Neely MD - 12/25/2018 4:30 PM CDT Cc: Chief Complaint Patient presents with Forms HPI Amy Montalvo is a 63 year old female who presents for completion of FMLA forms due to her chronic health conditions including DM2, HTN, FRANDY w/ excessive daytime somnolence/chronic fatigue, chronic musculoskeletal pain, asthma, and chronic gastritis. Allergies Amy is allergic to dilaudid [hydromorphone (bulk)]; flagyl [metronidazole hcl]; lisinopril; losartan; and pcn [penicillins]. Medications Outpatient Medications Prior to Visit Medication Sig Dispense Refill Armodafinil 50 mg Tab Take 2 tablets by mouth every morning. 180 tablet 1 glimepiride 4 mg tablet 1 tablet po qAM with breakfast, 1/2 tablet po qPM with dinner 135 tablet1 repaglinide 0.5 mg tablet Take 1 tablet by mouth 3 (three) times daily before meals. 270 tablet 1 gabapentin 100 mg capsule Take 1 capsule by mouth at bedtime. 90 capsule 1 tiZANidine 2 mg tablet Take 0.5-1 [...] Take 1 capsule by mouth daily. 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 HENT: Negative. Eyes: Negative. Respiratory: Negative. Cardiovascular: Negative. Gastrointestinal: Negative. Genitourinary: Negative. Musculoskeletal: Positive for arthralgias and myalgias. Skin: Negative. Neurological: Negative. Psychiatric/Behavioral: Negative. Endocrine: Endocrine negative Vital Signs BP (!) 141/82 (BP Location: Left arm, Patient Position: Sitting, BP CUFF SIZE: Adult Large) | Pulse91 | Temp 36.6 C (97.8 F) (Tympanic) | Ht 5' 7" (1.702 m) | Wt 221 lb (100.2 kg) | BMI 34.61kg/m Physical Exam Nursing note and vitals reviewed. Discussion in lieu of physical examination. Assessment/Plan ICD-10-CM ICD-9-CM 1. Encounter for completion of form with patient Z02.89 V68.89 2. Uncontrolled type 2 diabetes mellitus without complication, without long-term current use of insulin E11.65 250.02 3. Severe obstructive sleep apnea G47.33 327.23 4. Uncontrolled daytime somnolence R40.0 780.09 5. Essential hypertension I10 401.9 6. Mild persistent asthma without complication J45.30 493.90 7. Chronic antral gastritis K29.50 535.10 8. Chronic musculoskeletal pain M79.18 729.1 G89.29 338.29 FMLA paperwork was completed for the patient in regards to her chronic health conditions and the need for her to possibly take time off for medical appointments and acute flare-ups of these conditions. Plan of care, desired health behaviors, goals, Ddx, and any prescribed medications were discussed with the patient. This visit involved counseling and coordination of care that comprised more than 50%of the visit time. I spent 20 minute(s) total time with the patient. Education resources and self-management tools were provided and reviewed with the AVS. Patient/guardian/family verbalized understanding and agrees to the plan of care. Barriers to care: None. Ability to manage care: Good. Advanced care planning (living will) information was not given/offered to the patient to review for discussion at a future visit. If applicable, the [facility] database was accessed to review any controlledsubstance prescription claims data. If the patient is taking prescribed medications, the [facility] prescription claims data in [employer] was reviewed to assess patient compliance with the medication treatment plan. Follow-up: As previously advised for routine care. Follow-up sooner if any problems or concerns. documented in this encounter Plan of Treatment Date Type Specialty Care Team Description 03/29/2019 Office Visit Family Medicine Monica Neely MD [address] [place] [phone] Health Maintenance Due Date Last Done [...] - Primar y Other alteration of consciousness Uncontrolled type 2 diabetes mellitus wi thout complication, without long-term current use of insulin Severe obstructive sleep apnea Essential hypertension Unspecified essential hypertension Mild persistent asthma without complicat ion Unspecified asthma Chronic antral gastritis Atrophic gastritis without mention of he morrhage Chronic musculoskeletal pain Mylagia and myositis, unspecified Encounter for completion of form with wade simpson documented in this encounter documented as of this encounter
--- OUTSIDE RECORDS SUMMARY | 2019-09-01 19:56 | XMS REPORT | Summary of Care ---
:1955 Author Organization [facility] Address [address] [place] [address] Care Team Providers Name Role Phone Isis Neely MD Primary Care Provider Encounter Details Date Type Department Care Team Description 12/08/2018 Orders Only [facility] Doctor Unassigned, No [address] [facility] [place] [address] [address] [place] [address] Allergies Active Allergy Reactions Severity Noted Date Comments Hydromorphone (Bulk) Hallucinations 02/02/2018 Metronidazole Hcl Swelling 06/02/2015 Lisinopril Swelling, Cough 09/08/2017 Losartan Swelling 03/31/2018 Penicillins Hives 06/02/2015 documented as of this encounter (statuses as of 12/17/2018) Medications Medication Sig Dispensed Refills Start End [...] Use as directed, 1 Kit 0 Active ([employer]ellation ResearchUCH VERIO IQ METER) DX:E11.9 8 Kit Insulin [place], Use as directed, 100 Each 1 07/13/201 [...] BEDTIME 9 Hypercholesterolemia STOP TAKING ATORVASTATIN dulaglutide ([facility] inject 1.5 mg 12 Syringe 3 [...] po qPM hyperglycemia, with dinner unspecified whether detention insulin use repaglinide 0.5 mg Take 1 tablet by 270 tablet 1 Active tabletIndications: 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 unspecified whether detention insulin use documented as of this encounter (statuses as of 12/17/2018) Active Problems Problem Noted Date Neuropathy of [...] as of this encounter (statuses as of 12/17/2018) Resolved Problems Problem Noted Date Resolved Date Chest pain 01/17/2018 11/12/2018 Immunization counseling 01/23/2017 11/12/2018 Temporal headache 01/16/2017 11/12/[address] scan 12/06/2016 11/12/2018 documented as of this encounter (statuses as of 12/17/2018) Immunizations Name Administration Dates Next Due Influenza [...] Office Visit Family Medicine Monica Neely MD [address] [place] [address] [phone] Health Maintenance Due Date Last Done [...] Diagnosis Comme nts AUTHORIZATION FOR RELEASE Routine 12/08/2018 12:01 AM OF PHI CDT documented in this encounter Results Not on filedocumented in this encounter Insurance Payer Benefit Plan / Group Subscriber ID Effective Dates Phone Address Type AETNA A[facility] [id number] 2013-Present PPO documented as of this encounter
--- OUTSIDE RECORDS SUMMARY | 2019-09-01 19:57 | XMS REPORT | Summary of Care ---
:1955 Author Organization [facility] [employer] Address [address] [place] [address] Care Team Providers Name Role Phone Isis Neely MD Primary Care Provider Reason for Visit Reason Comments Forms Encounter Details Date Type Department Care Team Description 12/25/2018 Office Visit [facility] Family Rosalina Neely Unco ntrolled daytime somnolence (Primary Dx); Medicine - Anand Marinelli MD Uncontrolled type 2 diabetes mellitus wi thout complication, without long-term current use of insulin; [facility] [address] [address] [facility] [address] Severe obstructive sleep apnea; Drive [place], [place] Essential hypertension; [place] [address] Mild persistent asthma without complicat ion; [address] Chronic antral gastritis; [phone] Chronic musculo skeletal pain; (Fax) Encounter for [...] Use as directed, 1 Kit 0 Active (Solds[employer]CH VERIO IQ METER) DX:E11.9 8 Kit Insulin [place], Use as directed, 100 Each 1 Active [...] po qPM hyperglycemia, with dinner unspecified whether shelter insulin use repaglinide 0.5 mg Take 1 tablet by 270 tablet 1 Active tabletIndications: 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 unspecified whether keno terminal operator insulin use Armodafinil 50 mg Take [...] Take 1 capsule by mouth daily. 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 If applicable, the [facility] database was accessed to review any controlledsubstance prescription claims data. If the patient is taking prescribed medications, the [facility] prescription claims data in [employer] was reviewed to assess patient compliance with the medication treatment plan. Follow-up: As previously advised for routine care. Follow-up sooner if any problems or concerns. documented in this encounter Plan of Treatment Date Type Specialty Care Team Description 03/29/2019 Office Visit Family Medicine Monica Neely MD [address] [place] [phone] Health Maintenance Due Date Last Done [...]
--- OUTSIDE RECORDS SUMMARY | 2019-09-01 19:58 | XMS REPORT | Summary of Care ---
:1955 Author Organization [facility] [employer] Address [address] [place] [address] Care Team Providers Name Role Phone Isis Neely MD Primary Care Provider Reason for Visit Reason Comments Refill Request Encounter Details Date Type Department Care Team Description 12/29/2018 Refill [facility] Medicine Rosalina Cherry MD Refill Request - [place] [address] [facility] [place] [address] [place] [address] [phone] Allergies Active Allergy Reactions Severity Noted Date Comments Hydromorphone (Bulk) Hallucinations 02/02/2018 Metronidazole Hcl Swelling 06/02/2015 Lisinopril Swelling, Cough 09/08/2017 Losartan Swelling 03/31/2018 Penicillins Hives 06/02/2015 documented as of this encounter (statuses as of 12/30/2018) Medications Medication Sig Dispensed Refills Start End [...] Use as directed, 1 Kit 0 Active ([employer] VERIO IQ METER) DX:E11.9 8 Kit Insulin [place], Use as directed, 100 Each 1 Active [...] BEDTIME 9 Hypercholesterolemia STOP TAKING ATORVASTATIN dulaglutide ([facility]) inject 1.5 mg 12 Syringe 3 [...] po qPM hyperglycemia, with dinner unspecified whether [facility] insulin use repaglinide 0.5 mg Take 1 tablet by 270 tablet Active tabletIndications: 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 unspecified whether [facility] insulin use Armodafinil 50 mg Take 2 tablets by 180 tablet Active TabIndications: mouth every 9 Uncontrolled daytime morning. somnolence, FRANDY (obstructive sleep apnea) documented as of this encounter (statuses as of 12/30/2018) Active Problems Problem Noted Date Neuropathy of [...] as of this encounter (statuses as of 12/30/2018) Resolved Problems Problem Noted Date Resolved Date Chest pain 01/17/2018 11/12/2018 Immunization counseling 01/23/2017 11/12/2018 Temporal headache 01/16/2017 11/12/[address] scan 12/06/2016 11/12/2018 documented as of this encounter (statuses as of 12/30/2018) Immunizations Name Administration Dates Next Due Influenza [...] Office Visit Family Medicine Monica Neely MD [address] [place] [phone] Health Maintenance Due Date Last Done [...] filedocumented in this encounter Visit Diagnoses Diagnosis Cough documented in this encounter Insurance Payer Benefit Plan / Group Subscriber ID Effective Dates Phone Address Type [facility]NA [facility] [id number] 2013-Present PPO documented as of this encounter
--- OUTSIDE RECORDS SUMMARY | 2019-09-01 19:58 | XMS REPORT | Summary of Care ---
:1955 Author Organization [facility] - [facility] Address [address] [place] [address] Care Team Providers Name Role Phone Isis Valencia MD Primary Care Provider Reason for Referral Radiology Services (STAT) Status Reason Specialty Diagnoses / Referred By Referred To Procedures Contact Contact New Request Diagnostic Diagnoses Chest wall pain Aletarima, [place] Radiology Procedures XR CHEST 1 MD Katarina CRAWFORD [place] [id number] Radiology Services (STAT) Status Reason Specialty Diagnoses / Referred By Referred To Procedures Contact Contact New Request Diagnostic Diagnoses Chest wall pain Aletarima, [place] Radiology Procedures XR CHEST 1 MD Katarina CRAWFORD [place] [phone] Reason for Visit Reason Comments Pain Left Auth/Cert Status Reason Specialty Diagnoses / Referred By Referred To Procedures Contact Contact Emergency Medicine [facility] Em ergency Dept [address] [facility] [place] [address] Fax: Encounter Details Date Type Department Care Team Description 12/30/2018 Emergency ADC-Emergency Yarima, [place] S, Chest wal l pain (Primary Dx); Department Musculoskeletal pain; [address] [place] [address] Dr Bray [facility] Essential hypertension [place] [id number] [place] [address] [phone] Allergies Active Allergy Reactions Severity Noted Date [...] Use as directed, 1 Kit 0 Active (FUELUPUCH VERIO IQ METER) DX:E11.9 8 Kit Insulin [place], Use as directed, 100 Each 1 Active [...] po qPM hyperglycemia, with dinner unspecified whether care home insulin use repaglinide 0.5 mg Take 1 tablet by 270 tablet 1 Active tabletIndications: 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 unspecified whether care home insulin use Armodafinil 50 mg Take 2 tablets by 180 tablet 1 Active TabIndications: mouth every 9 Uncontrolled daytime morning. somnolence, FRANDY (obstructive sleep apnea) traMADol (ULTRAM) 50 mg Take 1 tablet by 20 tablet 0 Active tabletIndications: Chest mouth every 6 9 wall pain, (six) hours as Musculoskeletal pain needed for Pain (scale 7-10). documented as of this encounter (statuses as [...] Sign Reading Time Taken Comments Blood Pressure 162/90 12/30/2018 6:49 Provider aware of PM CDT patient's discha rge blood pressure w ith no further orders received. Pulse 88 12/30/2018 6:49 PM CDT Temperature 36.7 C (98 F) 12/30/2018 6:49 PM CDT Respiratory Rate 14 12/30/2018 6:49 PM CDT Oxygen Saturation 98% 12/30/2018 6:49 PM CDT Inhaled Oxygen - - Concentration Weight 99.8 kg (220 lb) 12/30/2018 4:31 PM CDT Height 170.2 cm (5' 7") 12/30/2018 4:31 PM CDT Body Mass Index 34.46 12/30/2018 4:31 PM CDT documented in this encounter Discharge Instructions Juan Daniel Kirby MD - 12/30/2018 DIAGNOSIS Diagnoses that have been ruled out: None Diagnoses that are still under consideration: None Final diagnoses: Chest wall pain Musculoskeletal pain Essential hypertension NO LIFE-THREATENING FINDINGS ON TODAY'S EXAM. PROCEDURES IN THE ER TODAY: Orders Placed This Encounter Procedures XR CHEST 1 VW CBC WITH DIFF TROPONIN I COMP. METABOLIC PANEL (60489) CBC WITH DIFFERENTIAL O2 Per Protocol Consult Evaluation MEDICATIONS ADMINISTERED IN THE ER TODAY AND DISCHARGE MEDICATIONS: Orders Placed This Encounter Medications FENTanyl PF (SUBLIMAZE (PF)) injection 50 mcg ondansetron (ZOFRAN (PF)) injection 4 mg hydralAZINE (APRESOLINE) injection 20 mg ketorolac (TORADOL) injection 30 mg traMADol (ULTRAM) 50 mg tablet FOLLOW-UP RECOMMENDATIONS: RECOMMEND FOLLOW-UP WITH DR VALENCIA DISCUSSED MONITOR AND RECORD YOUR BLOOD PRESSURE CAREFULLY FOR YOUR NEXT DOCTOR'S VISIT RETURN TO ER FOR WORSENING OF SYMPTOMS documented in this encounter Plan of Treatment Date Type Specialty Care Team Description 03/29/2019 Office Visit Family Medicine Monica Valencia MD [address] [place] [place] [phone] Health Maintenance Due Date Last Done [...] encounter Procedures Procedure Name Priority Date/Time Associated Comments Diagnosis COMP. METABOLIC PANEL STAT 12/30/2018 5:23 Chest wall pain Results for this (19450) PM CDT procedure are i n the results section. TROPONIN I STAT 12/30/2018 5:23 Chest wall pain Results for this PM CDT procedure are i n the results section. CBC WITH DIFFERENTIAL STAT 12/30/2018 5:22 Chest wall pain Results for this PM CDT procedure are i n the results section. CBC WITH DIFF STAT 12/30/2018 5:22 Chest wall pain Results for this PM CDT procedure are i n the results section. XR CHEST 1 VW STAT 12/30/2018 5:15 Chest wall pain Results for this PM CDT procedure are i n the results section. EKG-12 LEAD Routine 12/30/2018 5:03 PM CDT CONSENT/REFUSAL FOR Routine 12/30/2018 4:24 DIAGNOSIS AND PM CDT TREATMENT documented in this encounter Results COMP. METABOLIC PANEL (13114) (12/30/2018 5:23 PM CDT) Pathologist Sig nature NA 143 135 - 145 [facility] mmol/L [facility] K 4.1 3.5 - 5.0 [facility] mmol/L HOSPITAL [facility] CL 105 98 - 108 mmol/L [facility] CO2 TOTAL 29 23 - 31 mmol/L [facility] AGAP 9 2 - 16 [facility] BUN 19 7 - 23 mg/dL [facility] GLUCOSE 162 (H) 70 - 110 mg/dL [facility] CREATININE 0.93 0.50 - 1.04 [facility] mg/dL H[facility] TOTAL BILI 0.2 0.1 - 1.1 mg/dL [facility] CALCIUM 9.6 8.6 - 10.6 [facility] mg/dL [facility] T PROTEIN 7.5 6.3 - 8.2 g/dL [facility] ALBUMIN 4.0 3.5 - 5.0 g/dL [facility] ALK PHOS 91 34 - 122 U/L [facility] ALT(SGPT) 18 9 - 51 U/L [facility] AST(SGOT) 21 13 - 40 U/L [facility] eGFR Calculation 60.7 mL/min/1.73m2 [facility] (Non-[facility] [place]) eGFR Calculation 73.6 mL/min/1.73m2 [facility] () [facility] Specimen Blood - ARM, RIGHT Narrative Performed At Association of Glomerular Filtration Rate (GFR) [facility] and Staging of Kidney Disease* + + +- + | GFR (mL/min/1.73 m2)| With Kidney Damage|Without Kidney Damage + + +- + |>90| Stage one| Normal + + +- + |60-89|S tage two| Decreased GFR + + +- + |30-59|S tage three| Stage three + + +- + |15-29|S tage four | Stage four + + +- + |<15 (or dialysis)|Stage five | Stage five + + +- + *Each stage assumes the associated GFR level has been in effect for at least three months.Stages 1 to 5, with or without kidney disease, indicate chronic kidney disease . Notes: Determination of stages one and two (with eGFR >59mL/min/1.73 m2) requires estimation of kidney damage for at least three months as defined by structural or functional abnormalities of the kidney, manifested by either: Pathological abnormalities or Markers of kidney damage (including abnormalities in the composition of the blood or urine or abnormalities in imaging tests). Performing Organization Address City/State/Zipcode Phone Number [facility] CLIA: [id number], [address] [place], [place] [address] TROPONIN I (12/30/2018 5:23 PM CDT) Pathologist Sig nature TROPONIN I 0.001 <=0.034 ng/mL [facility] Specimen Blood - ARM, RIGHT Narrative Performed At Equal or Less than 0.034 ng/ml---Normal [facility] Note: Cardiac troponin begins to rise 3-4 hours after the onset of ischemia. Repeat in 4-6 hours if the sample was drawn within 3-4 hours of the onset of the symptom and found normal. Between 0.035 and 0.120 ng/mL--- Borderline. Questionable myocardial injury or necrosis Note: Serial measurement may be necessary to confirm or exclude the diagnosis of myocardial injury or necrosis; Clinical correlation (symptoms, EKGs, imaging studies, and others) required; Repeat in 4-6 hours if clinically indicated. Equal or Higher than 0.121 ng/mL---Abnormal. Myocardial Injury or Necrosis Likely Biotin has been reported to cause a negative bias, interpret results relative to patient's use of biotin. Performing Organization Address City/State/Zipcode Phone Number [facility] CLIA: [id number], [address] [place], [place] [address] CBC WITH DIFFERENTIAL (12/30/2018 5:22 PM CDT) [facility] WBC 6.89 4.30 - 11.10 [facility] 10*3/L [facility] RBC 4.84 3.93 - 5.25 [facility] 10*6/L [facility] HGB 11.6 11.6 - 15.0 [facility] g/dL [facility] HCT 39.6 35.7 - 45.2 % [facility] MCV 81.8 80.6 - 95.5 fL [facility] MCH 24.0 (L) 25.9 - 32.8 pg [facility] MCHC 29.3 (L) 31.6 - 35.1 [facility] g/dL [facility] RDW-SD 50.2 (H) 39.0 - 49.9 fL [facility] RDW-CV 17.0 (H) 12.0 - 15.5 % [facility] PLT 246 166 - 358 [facility] 10*3/L [facility] MPV 11.4 9.5 - 12.9 fL [facility] NRBC/100 WBC 0.0 0.0 - 10.0 /100 [facility] WBCs [facility] NRBC x10^3 <0.01 10*3/L [facility] GRAN MAT (NEUT) % 47.4 % [facility] IMM GRAN % 0.30 % [facility] LYMPH % 39.0 % [facility] MONO % 8.1 % [facility] EOS % 4.8 % [facility] BASO % 0.4 % [facility] GRAN MAT x10^3(ANC) 3.26 1.88 - 7.09 [facility] 10*3/uL HOSPITAL LAB[facility]ORY IMM GRAN x10^3 <0.03 0.00 - 0.06 [facility] 10*3/uL HOSPITAL LAB[facility] LYMPH x10^3 2.69 1.32 - 3.29 [facility] 10*3/uL HOSPITAL [facility] MONO x10^3 0.56 0.33 - 0.92 [facility] 10*3/uL [facility] EOS x10^3 0.33 0.03 - 0.[address]/uL [facility] BASO x10^3 0.03 0.01 - 0.[address]/[facility] LAB[facility]ORY Specimen Blood - ARM, RIGHT Performing Organization Address City/State/Zipcode Phone Number [facility] CLIA: [id number], [address] [place], [place] [address] XR CHEST 1 VW (12/30/2018 5:15 PM CDT) Specimen Impressions Performed At PACS/VR/DOSE Mild pulmonary vascular congestion. Kamari Gil MD., have reviewed this study and agree with the above report. Narrative Performed At PROCEDURE: XR CHEST 1 VW PACS/VR/DOSE CLINICAL INDICATION: Chest Wall Pain, Le ft Rib cage pain COMPARISON: 09/10/2018 FINDINGS: Mild pulmonary vascular congestion is no namrata. No focal consolidation, pleural effusion, or pneumothorax. The cardiac silhouette is normal in size . Atherosclerotic calcifications are seen in the aortic arch. No acute osseous abnormality. Unchanged thoracic dextroscoliosis. Procedure Note [facility], Radiant Results Inft User - 2018 5:59 PM CDT PROCEDURE: XR CHEST 1 VW CLINICAL INDICATION: Chest Wall Pain, Le ft Rib cage pain COMPARISON: 09/10/2018 FINDINGS: Mild pulmonary vascular congestion is no namrata. No focal consolidation, pleural effusion, or pneumothorax. The cardiac silhouette is normal in size . Atherosclerotic calcifications are seen in the aortic arch. No acute osseous abnormality. Unchanged thoracic dextroscoliosis. IMPRESSION Mild pulmonary vascular congestion. I, Arnoldo Nunez MD., have r eviewed this study and agree with the above report. Performing Organization Address City/State/Zipcode Phone Number PACS/VR/DOSE documented in this encounter Visit Diagnoses Diagnosis Chest wall pain - Primary Painful respiration Musculoskeletal pain Mylagia and myositis, unspecified Essential hypertension Unspecified essential hypertension documented in this encounter Administered Medications Medication Order MAR Action Action Date Dose Rate Site FENTanyl PF (SUBLIMAZE (PF)) Given 12/30/2018 5:23 PM CDT 50 mc g injection 50 mcg 50 mcg, Slow IV Push, ONCE, 1 dose, Fri12/30/18 at 1815, Routine hydralAZINE (APRESOLINE) injection 20 mg Given 12/30/2018 5:45 PM CDT 20 mg 20 mg, Intravenous, ONCE NOW, 1 dose, Fri12/30/18 at 1845, Routine, Indication: Hypertensive Emergency ketorolac (TORADOL) injection 30 mg Given 12/30/2018 6:34 PM CDT 30 mg 30 mg, Slow IV Push, ONCE, 1 dose, Fri12/30/18 at 1930, Routine, guardian family member approving Restricted medication: JUAN DANIEL HARDY ondansetron (ZOFRAN (PF)) injection 4 mg Given 12/30/2018 5:23 PM CDT 4 mg 4 mg, Slow IV Push, ONCE, 1 dose, Fri12/30/18 at 1815, DEANGELO documented in this encounter [facility] [facility] [address] [place] (Work) [id number] documented as of this encounter
--- OUTSIDE RECORDS SUMMARY | 2019-09-01 19:59 | XMS REPORT | Summary of Care ---
:1955 Author Organization [facility] [employer] Address [address] [place] [address] Care Team Providers Name Role Phone Isis Neely MD Primary Care Provider Reason for Visit Reason Comments Rx Concern/Question Encounter Details Date Type Department Care Team Description 05/24/2019 Telephone [facility] Family Rosalina Neely R x Concern/Question Medicine - Anand FERRARO [address] [place] [address] [place] [address] [place], [place] [phone] [id number] Allergies Active Allergy Reactions Severity Noted Date Comments Amlodipine Swelling 03/28/2019 Hydromorphone (Bulk) Hallucinations 02/02/2018 Metronidazole Hcl Swelling 06/02/2015 Lisinopril Swelling, Cough 09/08/2017 Losartan Swelling 03/31/2018 Nifedipine Swelling 03/28/2019 Penicillins Hives 06/02/2015 documented as of this encounter (statuses as of 05/26/2019) Medications Medication Sig Dispensed Refills Start Date End Date Status vitamin B-12 (VITAMIN Take 1 tablet by 90 tablet 1 06/04/2017 Active B-12) 500 mcg tablet mouth daily. vitamin B-6 (VITAMIN Take 1 tablet by 90 tablet 1 06/04/2017 Active B-6) 100 mg tablet mouth daily. Blood-Glucose Meter Use as directed, 1 Kit 0 09/30/2017 Active (ONETOUCH VERIO IQ DX:E11.9 METER) Kit coenzyme Q10 (COQ-10) Take 1 capsule by 0 11/10/2017 Active 100 mg softgel mouth daily. Additional information Patient taking differently: 200 mg Oral DAILY, Reported on 02/02/2019 3:11 PM albuterol 90 mcg/actuation 2 puffs with spacer 4 1 Inhaler 1 0 04/24/2018 Active inhalerIndications: times a day for at Bronchospasm least 7 days inhalational spacing May substitute other 1 Each 0 04/24/19 19 Active deviceIndications: spacing device Bronchospasm metFORMIN 1,000 mg Take 1 tablet by mouth 180 tablet 3 019 Active tabletIndications: Type 2 2 (two) times daily diabetes mellitus with with meals. diabetic nephropathy, with long-term current use of insulin blood sugar diagnostic Use as directed. 100 Strip 3 06/17/2018 Active stripIndications: Type 2 E11.21. Check once diabetes mellitus with daily diabetic nephropathy, with long-term current use of insulin lancets 33 gauge Use as directed. 100 Each 3 06/17/2018 Active MiscIndications: Type 2 E11.21. Check once diabetes mellitus with daily diabetic nephropathy, with long-term current use of insulin fluticasone-vilanterol (BREO Inhale 1 Puff daily. 1 Each 5 07/13/2018 Active ELLIPTA) 100-25 mcg/dose Rinse mouth after each DsDvIndications: Moderate use. persistent asthma with acute exacerbation magnesium oxide 400 mg (241.3 TAKE 2 TABLETS BY 240 tablet 5 0 07/14/2018 Active mg magnesium) MOUTH 4 TIMES DAILY tabletIndications: Hypomagnesemia FERROUS GLUCONATE 324 mg (37.5 TAKE 1 TABLET BY MOUTH 90 tablet 1 09/01/2018 Active mg iron) tabletIndications: ONCE DAILY Iron deficiency metoprolol succinate XL 50 mg Take 1 tablet by mouth 90 tablet 1 10/08/2018 Active 24 hr tabletIndications: daily. Essential hypertension omeprazole 40 mg capsule 0 09/12/2018 Active mesalamine 1.2 gram EC tablet 1 08/05/2018 Active gabapentin 100 mg Take 1 capsule by 90 capsule 1 11/10/2018 Active capsuleIndications: Neuropathy mouth at bedtime. of both feet tiZANidine 2 mg Take 0.5-1 tablets by 30 tablet 0 11/10/2018 Active tabletIndications: Myalgia mouth every 8 (eight) hours as needed (muscle pain or spasm). 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 hyperglycemia, unspecified whether half-way insulin use traMADol (ULTRAM) 50 mg Take 1 tablet by mouth 20 tablet 0 Active tabletIndications: Chest wall every 6 (six) hours as pain, Musculoskeletal pain needed for Pain (scale 7-10). aspirin 81 mg EC Take 1 tablet by mouth 100 tablet 3 9 Active tabletIndications: daily. Take with food. Nonobstructive atherosclerosis of coronary artery dulaglutide (TRULICITY) 1.5 inject 1.5 mg under 12 Syringe 3 1 Active mg/0.5 mL PnIjIndications: the skin weekly. Type 2 diabetes mellitus with diabetic nephropathy, with long-term current use of insulin VITAMIN D2 50,000 unit TAKE 1 CAPSULE BY 6 capsule 1 9 Active capsuleIndications: Vitamin D MOUTH EVERY 2 WEEKS deficiency WITH FOOD pregabalin (LYRICA ORAL) Take by mouth. 0 Active albuterol 2.5 mg /3 mL (0.083 Inhale 3 mL every 4 120 Vial 5 02/04/2019 Active %) nebulizer (four) hours as needed solutionIndications: Chronic for Wheezing or obstructive pulmonary disease, Shortness of Breath. unspecified COPD type Via nebulizer albuterol 90 mcg/actuation Inhale 2 Puffs every 6 8.5 g 5 02/04/2019 Active inhalerIndications: Hypoxia (six) hours as needed for Wheezing or Shortness of Breath. codeine-guaifenesin 10-100 Take 5-10 mL by mouth 120 mL 0 1 Active mg/5 mL solutionIndications: every 4 (four) hours Hypoxia as needed for Cough. MAGNESIUM OXIDE 400 mg (241.3 TAKE 2 TABLETS BY 240 tablet 5 1 04/20/2018 Active mg magnesium) MOUTH 4 TIMES DAILY tabletIndications: Hypomagnesemia furosemide 20 mg Take 1 tablet by mouth 36 tablet 1 03/05/2019 Active tabletIndications: Hypoxia, every Friday, Chest pain, unspecified type Friday and Friday. hydrALAZINE 50 mg Take 1 tablet by mouth 180 tablet 1 03/19/20 Active tabletIndications: Essential 2 (two) times daily. hypertension STOP NIFEDIPINE ROSUVASTATIN 20 mg TAKE 1 TABLET BY MOUTH 90 tablet 3 04/06/20 19 Active tabletIndications: AT BEDTIME, STOP Hypercholesterolemia TAKING ATORVASTATIN moxifloxacin 400 mg Take 1 tablet by mouth 10 tablet 0 020 Active tabletIndications: Abdominal daily. pain, unspecified abdominal location, Diverticulitis ondansetron (ZOFRAN ODT) 4 mg Take 1 tablet by mouth 20 tablet 0 05/18/2019 Active disintegrating every 8 (eight) hours tabletIndications: Abdominal as needed for Nausea pain, unspecified abdominal and Vomiting (N/V). location, Diverticulitis acetaminophen-codeine 300-30 Take 1 tablet by mouth 12 tablet 0 05/18/2019 Active mg tabletIndications: every 4 (four) hours Abdominal pain, unspecified as needed for Pain abdominal location, (scale 4-6). Diverticulitis dicyclomine 20 mg Take 1 tablet by mouth 20 tablet 0 0 Active tabletIndications: Generalized every 6 (six) hours as abdominal pain needed for Abdominal pain. documented as of this encounter (statuses as of 05/26/2019) Active Problems Problem Noted Date Diastolic dysfunction 03/28/2019 Pulmonary hypertension 03/28/2019 Dyslipidemia 02/13/2019 Hypoxia 02/02/2019 Neuropathy of both feet 11/12/2018 Myalgia 11/12/2018 [...] as of this encounter (statuses as of 05/26/2019) Resolved Problems Problem Noted Date Resolved Date Chest pain 01/17/2018 11/12/2018 Immunization counseling 01/23/2017 11/12/2018 Temporal headache 01/16/2017 11/12/[address] scan 12/06/2016 11/12/2018 documented as of this encounter (statuses as of 05/26/2019) Immunizations Name Administration Dates Next Due Influenza Virus Vaccine Quad .5 mL IM 6+ MO 02/12/2019, 01/13 Pneumococcal Polysaccharide, PPSV23 (PNEUMOVAX) 02/07/2018 documented as [...] Treatment Date Type Specialty Care Team Description 07/15/2019 Office Visit Pulmonary Disease Alice Rodriguez DO [address] [place] [phone] Health Maintenance Due Date Last Done Comments DTaP,Tdap,and Td Vaccines (1 - 1965 Tdap) PAP SMEAR 11/16/1975 Breast Cancer Screening 1994 (MAMMOGRAM) Zoster Recombinant Vaccine 2004 (SHINGRIX) (1 of 2) HgA1C 05/29/2019 11/26/2018, 06/17/2018, 01/18/2018, Additional history exists FOOT EXAM 06/18/2019 06/17/2018, 06/17/2018, 09/10/2017, Additional history exists EYE EXAM 11/21/2019 11/20/2018, 06/12/2018 LDL-C 11/27/2019 11/26/2018, 06/26/2017, 02/12/2017 URINE MICROALBUMIN 11/27/2019 11/26/2018, 02/12/2017 CREATININE (SERUM) 05/20/2020 05/20/2019, 05/18/2019, 03/20/2019, Additional history exists COLONOSCOPY 02/25/2027 02/25/2017 LUNG CANCER SCREEN: Recommended Discontinued 02/03/2018, 08/06/2017, for age 55-80 with 30 + pack year 11/14/2016 history PNEUMOCOCCAL 0-64 YEARS COMBINED Completed 02/07/2018 SERIES HEPATITIS C (HCV) SCREEN Completed 11/20/2018 INFLUENZA VACCINE Completed 02/12/2019, 02/07/2018 documented as of this encounter Results Not on filedocumented in this encounter Insurance Payer Benefit Plan / Group Subscriber ID Effective Dates Phone Address Type [employer]ETNA A[employer]NA [facility] [place] [id number] 2013-Present PPO documented as of this encounter
--- OUTSIDE RECORDS SUMMARY | 2019-09-01 20:00 | XMS REPORT | Summary of Care ---
:1955 Author Organization [facility] - [facility] Address [address] [place] [address] Care Team Providers Name Role Phone Isis Neely MD Primary Care Provider Reason for Referral MRI/CAT Scan (STAT) Status Reason Specialty Diagnoses / Referred By Referred To Procedures Contact Contact New Request Diagnostic Diagnoses Right-sided headache Neck pain Katia Emmanuel, Radiology Procedures CT HEAD WO CONTRAST SPECIMEN PROCESSOR [address] [place] [phone] Radiology Services (Emergency) Status Reason Specialty Diagnoses / Referred By Referred To Procedures Contact Contact New Request Diagnostic Diagnoses Hypertension, unspecified type Cyn Corneliusli Radiology Procedures CHEST 2 VIEWS SMD [address] [facility] [id number] [place] [address] Reason for Visit Reason Comments Hypertension Auth/Cert Status Reason Specialty Diagnoses / Referred By Referred To Procedures Contact Contact Emergency Medicine [facility] Em ergency Dept [address] [place] [address] [place] [address] Fax: Encounter Details Date Type Department Care Team Description 05/27/2019 Emergency ADC-Emergency Katia Emmanuel, Hypertensio n, unspecified type (Primary Dx); Department SPECIMEN PROCESSOR Right-sided headache; [address] [place] [address] [place] [address] Neck pain; [place] [id number] [place] [address] [phone] Allergies Active Allergy Reactions Severity Noted Date Comments Amlodipine Swelling 03/28/2019 Hydromorphone (Bulk) Hallucinations 02/02/2018 Metronidazole Hcl Swelling 06/02/2015 Lisinopril Swelling, Cough 09/08/2017 Losartan Swelling 03/31/2018 Nifedipine Swelling 03/28/2019 Penicillins Hives 06/02/2015 documented as of this encounter (statuses as of 05/27/2019) Medications Medication Sig Dispensed Refills Start Date End Date Status vitamin B-12 (VITAMIN Take 1 tablet by 90 tablet 1 06/04/2017 Active B-12) 500 mcg tablet mouth daily. vitamin B-6 (VITAMIN Take 1 tablet by 90 tablet 1 06/04/2017 Active B-6) 100 mg tablet mouth daily. Blood-Glucose Meter Use as directed, 1 Kit 0 09/30/2017 Active ([place] VERIO IQ DX:E11.9 METER) Kit coenzyme Q10 (COQ-10) Take 1 capsule by 0 11/10/2017 Active 100 mg softgel mouth daily. Additional information Patient taking differently: 200 mg Oral DAILY, Reported on 02/02/2019 3:11 PM albuterol 90 mcg/actuation 2 puffs with spacer 1 Inhaler 1 02/2019 Active inhalerIndications: 4 times a day for Bronchospasm at least 7 days inhalational spacing May substitute 1 Each 0 04/24/2018 Active deviceIndications: other spacing Bronchospasm device metFORMIN 1,000 mg Take 1 tablet by 180 tablet 3 06/17/2018 Active tabletIndications: Type 2 mouth 2 (two) times diabetes mellitus with daily with meals. diabetic nephropathy, with long-term current [...] of insulin fluticasone-vilanterol (BREO Inhale 1 Puff 1 Each 5 019 Active ELLIPTA) 100-25 mcg/dose daily. Rinse mouth DsDvIndications: Moderate after each use. persistent asthma with acute exacerbation magnesium oxide 400 mg TAKE 2 TABLETS BY 240 tablet 5 07/15/19 19 Active (241.3 mg magnesium) MOUTH 4 TIMES DAILY tabletIndications: Hypomagnesemia FERROUS GLUCONATE 324 mg TAKE 1 TABLET BY 90 tablet 1 09/02/19 19 Active (37.5 mg iron) MOUTH ONCE DAILY tabletIndications: Iron deficiency metoprolol succinate XL 50 Take 1 tablet by 90 tablet 1 2018 Active mg 24 hr tabletIndications: mouth daily. Essential hypertension omeprazole 40 mg capsule 0 09/12/2018 Active mesalamine 1.2 gram EC 1 08/05/2018 Active tablet gabapentin 100 mg Take 1 capsule by 90 capsule 1 11/10/2018 Active capsuleIndications: mouth at bedtime. Neuropathy of both feet tiZANidine 2 mg Take 0.5-1 tablets 30 tablet 0 11/10/2018 Active tabletIndications: Myalgia by mouth every 8 (eight) hours as needed (muscle pain or spasm). glimepiride 4 mg 1 tablet po qAM 135 tablet 1 12/02/2018 Active tabletIndications: Type 2 with breakfast, 1/2 diabetes mellitus with tablet po qPM with hyperglycemia, unspecified dinner whether half-way insulin use repaglinide 0.5 mg Take 1 tablet by 270 tablet 1 12/02/2018 Active tabletIndications: Type 2 mouth 3 (three) diabetes mellitus with times daily before hyperglycemia, unspecified meals. whether half-way insulin use traMADol (ULTRAM) 50 mg Take 1 tablet by 20 tablet 0 9 Active tabletIndications: Chest mouth every 6 (six) wall pain, Musculoskeletal hours as needed for pain Pain (scale 7-10). aspirin 81 mg EC Take 1 tablet by 100 tablet 3 01/13/2019 Active tabletIndications: mouth daily. Take Nonobstructive with food. atherosclerosis of coronary artery dulaglutide (TRULICITY) 1.5 inject 1.5 mg under 12 Syringe 3 1 Active mg/0.5 mL PnIjIndications: the skin weekly. Type 2 diabetes mellitus with diabetic nephropathy, with long-term current use of insulin VITAMIN D2 50,000 unit TAKE 1 CAPSULE BY 6 capsule 1 9 Active capsuleIndications: Vitamin MOUTH EVERY 2 WEEKS D deficiency WITH FOOD pregabalin (LYRICA ORAL) Take by mouth. 0 Active albuterol 2.5 mg /3 mL Inhale 3 mL every 4 120 Vial 5 019 Active (0.083 %) nebulizer (four) hours as solutionIndications: Chronic needed for Wheezing obstructive pulmonary or Shortness of disease, unspecified COPD Breath. Via type nebulizer albuterol 90 mcg/actuation Inhale 2 Puffs 8.5 g 5 02/05/20 19 Active inhalerIndications: Hypoxia every 6 (six) hours as needed for Wheezing or Shortness of Breath. codeine-guaifenesin 10-100 Take 5-10 mL by 120 mL 0 019 Active mg/5 mL solutionIndications: mouth every 4 Hypoxia (four) hours as needed for Cough. MAGNESIUM OXIDE 400 mg TAKE 2 TABLETS BY 240 tablet 5 02/19/20 19 Active (241.3 mg magnesium) MOUTH 4 TIMES DAILY tabletIndications: Hypomagnesemia furosemide 20 mg Take 1 tablet by 36 tablet 1 03/05/2019 Active tabletIndications: Hypoxia, mouth every Friday, Chest pain, unspecified type Friday and Friday. hydrALAZINE 50 mg Take 1 tablet by 180 tablet 1 03/19/2019 Active tabletIndications: Essential mouth 2 (two) times hypertension daily. STOP NIFEDIPINE ROSUVASTATIN 20 mg TAKE 1 TABLET BY 90 tablet 3 04/06/2019 Active tabletIndications: MOUTH AT BEDTIME, Hypercholesterolemia STOP TAKING ATORVASTATIN moxifloxacin 400 mg Take 1 tablet by 10 tablet 0 05/18/2019 Active tabletIndications: Abdominal mouth daily. pain, unspecified abdominal location, Diverticulitis ondansetron (ZOFRAN ODT) 4 Take 1 tablet by 20 tablet 0 2019 Active mg disintegrating mouth every 8 tabletIndications: Abdominal (eight) hours as pain, unspecified abdominal needed for Nausea location, Diverticulitis and Vomiting (N/V). acetaminophen-codeine 300-30 Take 1 tablet by 12 tablet 0 /0 07/2019 Active mg tabletIndications: mouth every 4 Abdominal pain, unspecified (four) hours as abdominal location, needed for Pain Diverticulitis (scale 4-6). dicyclomine 20 mg Take 1 tablet by 20 tablet 0 05/20/2019 Active tabletIndications: mouth every 6 (six) Generalized abdominal pain hours as needed for Abdominal pain. metoclopramide HCl 10 mg Take 1 tablet by 12 tablet 0 05/27/19 20 Active tabletIndications: mouth every 6 (six) 0 20 Right-sided headache hours for 12 doses. documented as of this encounter (statuses as of 05/27/2019) Active Problems Problem Noted Date Diastolic dysfunction [...] as of this encounter (statuses as of 05/27/2019) Resolved Problems Problem Noted Date Resolved Date Chest pain 01/17/2018 11/12/2018 Immunization counseling 01/23/2017 11/12/2018 Temporal headache 01/16/2017 11/12/[address] scan 12/06/2016 11/12/2018 documented as of this encounter (statuses as of 05/27/2019) Immunizations Name Administration Dates Next Due Influenza [...] Sign Reading Time Taken Comments Blood Pressure 151/90 05/27/2019 4:29 PM COTTON ACREAGE MEASURER Pulse 98 05/27/2019 4:29 PM [employer]TON ACREAGE MEASURER Temperature 36.8 C (98.3 F) 05/27/2019 12:10 PM [employer]TON ACREAGE MEASURER Respiratory Rate 18 05/27/2019 4:29 PM C[employer]TON ACREAGE MEASURER Oxygen Saturation 95% 05/27/2019 4:29 PM C[employer]TON ACREAGE MEASURER Inhaled Oxygen Concentration - - Weight 93.4 kg (206 lb) 05/27/2019 11:19 AM COTTON ACREAGE MEASURER Height 165.1 cm (5' 5") 05/27/2019 11:19 AM C[employer]TON ACREAGE MEASURER Body Mass Index 34.28 05/27/2019 11:19 AM [employer] ACREAGE MEASURER documented in this encounter Discharge Instructions Katia Shea FNP - 05/27/2019 DIAGNOSIS 1. HTN 2/ right sided headache 3. Dehydration NO LIFE-THREATENING FINDINGS ON TODAY'S EXAM. PROCEDURES IN THE ER TODAY: Orders Placed This Encounter Procedures CHEST [address] HEAD WO CONTRAST TROPONIN I aPTT PROTHROMBIN TIME / INR COMP. METABOLIC PANEL (47320) LIPASE, SERUM CBC WITH DIFF Urinalysis CBC WITH DIFFERENTIAL MAGNESIUM URINE CULTURE MEDICATIONS ADMINISTERED IN THE ER TODAY: Medications hydralAZINE (APRESOLINE) injection 10 mg (10 mg Intravenous Given 05/27/19 1220) magnesium sulfate 4 mEq/mL (50 %) injection 16 mEq (16 mEq IV Piggyback Given 05/27/19 1400) acetaminophen (TYLENOL) tablet 650 mg (650 mg Oral Given 05/27/19 1313) ondansetron (ZOFRAN (PF)) injection 4 mg (4 mg Slow IV Push Given 05/27/19 1314) NaCl 0.9% (NS) bolus infusion 1,000 mL (1,000 mL IV Infusion New Bag 05/27/19 1322) miorglpgvq-wppvyuncabfcb-wkmg (ESGIC) 50-325-40 mg tablet 1 tablet (1 tablet Oral Given 05/27/19 1529) ketorolac (TORADOL) injection 15 mg (15 mg Slow IV Push Given 05/27/19 1530) metoclopramide HCl (REGLAN) injection 10 mg (10 mg Slow IV Push Given 05/27/19 1530) YOUR PRESCRIPTIONS AND IXXT-TYY-UNNALIZ MEDICATION RECOMMENDATIONS: New Prescriptions No medications on file SPECIAL CARE INSTRUCTIONS: Tylenol and Motrin for headache. Please follow up with PCP deangelo for blood pressure management control. FOLLOW-UP RECOMMENDATIONS: RECOMMEND FOLLOW-UP WITH A PRIMARY CARE PROVIDER OR SPECIALIST IN 2-5 DAYS, ESPECIALLY IF NO IMPROVEMENT IN SYMPTOMS. TO FOLLOW-UP WITHIN THE [facility], TRY THESE OPTIONS (CLINIC APPOINTMENTS AVAILABLE ON HWVY-AR-LQHS BASIS): 1. SCHEDULE AN APPOINTMENT ONLINE AT WWW.[facility] 2. OR CALL THE [facility] ACCESS CENTER AT OR 3. OR CALL YOUR [facility] PHYSICIAN'S OFFICE DIRECTLY IF YOU ARE ALREADY AN ESTABLISHED [facility] PATIENT. OR, YOU MAY FOLLOW-UP WITH A PROVIDER OF YOUR CHOICE, SUCH : 1. A PHYSICIAN OF YOUR CHOICE 2. [facility], . LOCATIONS IN [facility] 3. [facility], [address] [place] [address]; [phone] RETURN TO ER FOR WORSENING OF SYMPTOMS. AttachmentsThe following attachments cannot be sent through Care Everywhere.High Blood Pressure, Controlling (Bahamian)Dehydration (Adult) (Bahamian)Headaches, Self-Care for (Bahamian)documented in this encounter Plan of Treatment Date Type Specialty Care Team Description 06/03/2019 Office Visit Family Medicine Monica Neely MD [address] [place] [address] [phone] Name Type Priority Associated Diagnoses Order S chedule URINE CULTURE LAB Routine Hypertension, unspecified O NCE for 1 Occurrences type starting 05/27/2019 until Right-sided head ache 05/27/2019 Dehydration Health Maintenance Due Date Last Done Comments [...] 02/25/2017 LUNG CANCER SCREEN: Recommended Discontinued 02/03/2018, 0806/2017, for age 55-80 with 30 + pack year 11/14/2016 history PNEUMOCOCCAL 0-64 YEARS COMBINED Completed 02/07/2018 SERIES HEPATITIS C (HCV) SCREEN Completed 11/20/2018 INFLUENZA VACCINE Completed 02/12/2019, 02/07/2018 documented as of this encounter Procedures Procedure Name Priority Date/Time Associated Diagnosis Comme nts CT HEAD WO CONTRAST STAT 05/27/2019 2:07 Right-sided headache Results for this PM [employer]CREAGE MEASURER Neck pain procedure are i n the results section. CBC WITH DIFFERENTIAL STAT 05/27/2019 12:20 Hypertension, R esults for this PM [employer] ACREAGE MEASURER unspecified type procedure a re in the results section. URINALYSIS STAT 05/27/2019 12:20 Hypertension, Results fo r this PM [employer] ACREAGE MEASURER unspecified type procedure a re in the results section. ACTIVATED PARTIAL STAT 05/27/2019 12:20 Hypertension, Resul ts for this THRMPLAS CAYLA PM [employer]CREAGE MEASURER unspecified type procedure a re in the results section. PROTHROMBIN TIME / STAT 05/27/2019 12:20 Hypertension, Resu lts for this INR PM [employer]CREAGE MEASURER unspecified type procedure a re in the results section. CBC WITH DIFFERENTIAL Routine 05/27/2019 12:20 Hypertension, R esults for this PM [employer] ACREAGE MEASURER unspecified type procedure a re in the results section. COMP. METABOLIC PANEL STAT 05/27/2019 12:20 Hypertension, R esults for this (42690) PM [employer] ACREAGE MEASURER unspecified type procedure a re in the results section. TROPONIN I STAT 05/27/2019 12:20 Hypertension, Results fo r this PM [employer] ACREAGE MEASURER unspecified type procedure a re in the results section. MAGNESIUM STAT 05/27/2019 12:20 Hypertension, Results fo r this PM [employer] ACREAGE MEASURER unspecified type procedure are in Right-sided head ache the results Neck pain section. LIPASE STAT 05/27/2019 12:20 Hypertension, Results fo r this PM [employer]CREAGE MEASURER unspecified type procedure a re in the results section. XR CHEST 2 VW STAT 05/27/2019 11:41 Hypertension, Results f or this AM [employer]CREAGE MEASURER unspecified type procedure a re in the results section. EKG-12 LEAD STAT 05/27/2019 11:25 AM C[employer]TON ACREAGE MEASURER CONSENT/REFUSAL FOR Routine 05/27/2019 11:12 DIAGNOSIS AND AM [employer]CREAGE MEASURER TREATMENT documented in this encounter Results CT HEAD WO CONTRAST (05/27/2019 2:07 PM COTTON ACREAGE MEASURER) Specimen Impressions Performed At Impression: PACS/VR/DOSE No acute intracranial hemorrhage or mass effect. Narrative Performed At CT HEAD WO CONTRAST PACS/VR/DOSE HISTORY: Neuro deficit(s), subacute , ri ght sided headache, neck pain. hypertension. Comparison: 01/17/2018. Technique: Routine unenhanced brain CT. Findings: No acute intracranial hemorrhage, extracerebral fluid collection, midline shift or mass effect. No acute transcortical infarction. Probable mild chron ic ischemic changes. Ventricles are normal. Cerebral volume i s age appropriate. No depressed calvarial fracture. Right phthisis bulbi. Visualized paranasal sinuses are essenti ally clear. Procedure Note [facility], Radiant Results Inft User - 2019 2:28 [address] COTTON ACREAGE MEASURER CT HEAD WO CONTRAST HISTORY: Neuro deficit(s), subacute , ri ght sided headache, neck pain. hypertension. Comparison: 01/17/2018. Technique: Routine unenhanced brain CT. Findings: No acute intracranial hemorrhage, extrac erebral fluid collection, midline shift or mass effect. No acute transcortical infarction. Proba ble mild chronic ischemic changes. Ventricles are normal. Cerebral volume i s age appropriate. No depressed calvarial fracture. Right phthisis bulbi. Visualized paranasal sinuses are essenti ally clear. IMPRESSION Impression: No acute intracranial hemorrhage or mass effect. Performing Organization Address City/State/Zipcode Phone Number PACS/VR/DOSE MAGNESIUM (05/27/2019 12:20 PM COTTON ACREAGE MEASURER) Pathologist Sig [facility] MAGNESIUM 1.2 (L) 1.7 - 2.4 mg/dL [facility] Specimen Blood - VENOUS Performing Organization Address City/[facility]/Zipcode Phone Number [facility] CLIA: [id number], [address] [place], [place] [address] CBC WITH DIFFERENTIAL (05/27/2019 12:20 PM COTTON ACREAGE MEASURER) Pathologist Sig nature WBC 7.72 4.30 - 11.10 [facility] 10*3/L [facility] RBC 4.73 3.93 - 5.25 [facility] 10*6/L [facility] HGB 10.7 (L) 11.6 - 15.0 [facility] g/dL [facility] HCT 36.7 35.7 - 45.2 % [facility] MCV 77.6 (L) 80.6 - 95.5 fL [facility] MCH 22.6 (L) 25.9 - 32.8 pg [facility] MCHC 29.2 (L) 31.6 - 35.1 [facility] g/dL [facility] RDW-SD 45.0 39.0 - 49.9 fL [facility] RDW-CV 15.9 (H) 12.0 - 15.5 % [facility] PLT 323 166 - 358 [facility] 10*3/L [facility] MPV 10.1 9.5 - 12.9 fL [facility] NRBC/100 WBC 0.0 0.0 - 10.0 /100 [facility] WBCs [facility] NRBC x10^3 <0.01 10*3/L [facility] GRAN MAT (NEUT) % 56.1 % [facility] IMM GRAN % 0.30 % [facility] LYMPH % 31.3 % [facility] MONO % 8.3 % [facility] EOS % 3.5 % [facility] BASO % 0.5 % [facility] GRAN MAT x10^3(ANC) 4.33 1.88 - 7.09 [facility] 10*3/uL [facility] IMM GRAN x10^3 <0.03 0.00 - 0.06 [facility] 10*3/uL [facility] LYMPH x10^3 2.42 1.32 - 3.29 [facility] 10*3/uL [facility] MONO x10^3 0.64 0.33 - 0.92 [facility] 10*3/uL [facility] EOS x10^3 0.27 0.03 - 0.39 [facility] 10*3/uL [facility] BASO x10^3 0.04 0.01 - 0.07 [facility] 10*3/uL [facility] Specimen Blood - VENOUS Performing Organization Address [facility] Phone Number [facility] CLIA: [id number], [address] [place], [place] [address] Urinalysis (05/27/2019 12:20 PM C[employer] ACREAGE MEASURER) APPEARANCE Hazy (A) Clear [facility] COLOR Yellow Yellow [facility] PH 5.0 4.8 - 8.0 [facility] SP GRAVITY 1.030 1.003 - 1.030 [facility] GLU U QUAL Normal Normal [facility] BLOOD NegativeComment: Negative [facility] INTERFERENCE FROM HOSPITAL [facility] ASCORBIC ACID MAY CAUSE FALSE NEGATIVE RESULT KETONES 5 mg/dL (A) Negative [facility] PROTEIN Negative Negative [facility] UROBILIN Normal Normal [facility] BILIRUBIN Negative Negative [facility] NITRITE Negative Negative [facility] LEUK DANNA 75/uL (A) Negative [facility] RBC/HPF 2 0 - 3 HPF [facility] WBC/HPF 10 (H) 0 - 5 HPF [facility] BACTERIA Moderate (A) Negative [facility] MUCOUS Moderate (A) Negative LPF [facility] SQ EPITH 17 HPF [facility] HYAL CAST 1 <=2 LPF [facility] Specimen Urine - URINE, CLEAN CATCH Performing Organization Address [facility]/Zipcode Phone Number [facility] CLIA: [id number], [address] [place], [place] [address] LIPASE, SERUM (05/27/2019 12:20 PM C[employer]CREAGE MEASURER) Pathologist Sig nature LIPASE 234 (H) 0 - 220 U/L [facility] Specimen Blood - VENOUS Performing Organization Address [facility]/Zipcode Phone Number [facility] CLIA: [id number], [address] [place], [place] [address] COMP. METABOLIC PANEL ([id number]) (05/27/2019 12:20 PM C[employer] ACREAGE MEASURER) Pathologist Sig [employer] NA 143 135 - 145 [facility] mmol/L [facility] K 4.4 3.5 - 5.0 [facility] mmol/L [facility] CL 103 98 - 108 mmol/L [facility] CO2 TOTAL 30 23 - 31 mmol/L [facility] AGAP 10 2 - 16 [facility] BUN 18 7 - 23 mg/dL [facility] GLUCOSE 135 (H) 70 - 110 mg/dL [facility] CREATININE 0.85 0.50 - 1.04 [facility] mg/dL [facility] TOTAL BILI 0.3 0.1 - 1.1 mg/dL [facility] CALCIUM 9.0 8.6 - 10.6 [facility] mg/dL [facility] T PROTEIN 7.2 6.3 - 8.2 g/dL [facility] ALBUMIN 4.2 3.5 - 5.0 g/dL [facility] ALK PHOS 67 34 - 122 U/L [facility] ALTv 18 5 - 35 U/L [facility] AST(SGOT) 38 13 - 40 U/L [facility] eGFR Calculation 67.3 mL/min/1.73m2 [facility] [place]) eGFR Calculation 81.6 mL/min/1.73m2 [facility] () [facility] Specimen Blood - VENOUS Narrative Performed At [facility] Glomerular Filtration Rate (GFR) [facility] and Staging of Kidney Disease* + + +- + | GFR (mL/min/1.73 m2) | With Kidney Damage | Without Kidney Damage + + +- + | >90 | Stage one | Normal + + +- + | 60-89 | Stage two | Decreased GFR + + +- + | 30-59 | Stage three | Stage three + + +- + | 15-29 | Stage four | Stage four + + +- + | <15 (or dialysis) | Stage five | Stage five + + +- + *Each stage assumes the associated GFR level has been in effect for at least three months. Stages 1 to 5, with or without kidney disease, indicate chronic kidney disease. Notes: Determination of stages one and two (with eGFR >59mL/min/1.73 m2) requires estimation of kidney damage for at least three months as defined by structural or functional abnormalities of the kidney, manifested by either: Pathological abnormalities or Markers of kidney damage (including abnormalities in the composition of the blood or urine or abnormalities in imaging tests). Performing Organization Address [facility] Centercode Phone Number [facility] CLIA: [id number], [address] [place] [address] PROTHROMBIN TIME / INR (05/27/2019 12:20 PM [employer]CREAGE MEASURER) [facility] PROTIME PATIENT 12.2 12.0 - 14.7 [facility] LABORATORY INR 1.0Comment: Normal [facility] INR <1.1; Warfarin [facility] Therapeutic range LABORATORY 2.0 to 3.0 or 2.5 to 3.5, depending upon the indications. Specimen Blood - VENOUS Performing Organization Address [facility] Centercofl Phone Number [facility] CLIA: [id number], [address] [place] [address] aPTT (05/27/2019 12:20 PM C[employer] ACREAGE MEASURER) [facility] nature APTT Patient 29 23 - 38 Seconds [facility] Specimen Blood - VENOUS Narrative Performed At The [facility] patient population mean normal value [facility] for aPTT is 30 seconds. Performing Organization Address [facility]/Zipcode Phone Number [facility] CLIA: [id number], [address] [place] [address] TROPONIN I (05/27/2019 12:20 PM C[employer]AGE MEASURER) [facility] TROPONIN I <0.012 <=0.034 ng/mL [facility] Specimen Blood - VENOUS Narrative Performed At Equal or Less than 0.034 ng/ml---Normal [facility] Note: Cardiac troponin begins to rise 3-4 hours after the onset of ischemia. Repeat in 4-6 hours if the sample was drawn within 3-4 hours of the onset of the symptom and found normal. Between 0.035 and 0.120 ng/mL--- Borderline. Questionable myocardial injury or necros is Note: Serial measurement may be necessary to [...] Performing Organization Address City/State/Zipcode Phone Number [facility] CLIA: [id number], [address] [place], [place] [address] CHEST 2 VIEWS (05/27/2019 11:41 AM [employer] ACREAGE MEASURER) Specimen Narrative Performed At HISTORY: Hypertension. PACS/VR/DOSE TECHNIQUE: PA and lateral views of the chest are obtai jaylon. Comparison made with 02/25/2019 study. FINDINGS: No acute pneumonia detected. No pneumothorax or pleural effusion or pulmonary congestion. Linear increased markings in the right lower lung and the right middle lobe are likely chronic pulmonary fibrosis. Tortuous, dilated and elongated thoracic aorta and brachiocephalic vessels noted. Central pulmonary arteries are dilated w ithout rosalinda acute interstitial pulmonary edema. Cardiothoracic ratio of approximately 16 /29.2 cm is consistent with mild cardiomegaly. CONCLUSIONS: No signs of acute cardiopulmonary disease . Procedure Note [facility], Radiant Results Inft User - 2019 11:44 AM COTTON ACREAGE MEASURER HISTORY: Hypertension. TECHNIQUE: PA and lateral views of the c hest are obtained. Comparison made with 02/25/2019 study. FINDINGS: No acute pneumonia detected. N o pneumothorax or pleural effusion or pulmonary congestion. Linear increase d markings in the right lower lung and the right middle lobe are likely chr onic pulmonary fibrosis. Tortuous, dilated and elongated thoracic aorta and brachiocephalic vessels noted. Central pulmonary arteries are dilated w ithout rosalinda acute interstitial pulmonary edema. Cardiothoracic ratio of approximately 16 /29.2 cm is consistent with mild cardiomegaly. CONCLUSIONS: No signs of acute cardiopul monary disease. Performing Organization Address City/State/Zipcode Phone Number PACS/VR/DOSE documented in this encounter Visit Diagnoses Diagnosis Hypertension, unspecified type - Primary Right-sided headache Headache Neck pain Cervicalgia Dehydration documented in this encounter Administered Medications Medication Order MAR Action Action Date Dose Rate Site acetaminophen (TYLENOL) tablet Given 05/27/2019 1:13 PM COTTON ACREAGE MEASURER 650 mg 650 mg 650 mg, Oral, ONCE, 1 dose, La 05/27/19 at 1400, DEANGELO jffoetucou-xylrvubwzmxla-hqjb (ESGIC) Given 05/27/2019 3:29 PM COTTON ACREAGE MEASURER 1 tablet 50-325-40 mg tablet 1 tablet 1 tablet, Oral, ONCE, 1 dose, La 05/27/19 at 1500, DEANGELO hydralAZINE (APRESOLINE) injection 10 mg Given 05/27/2019 12:20 PM COTTON ACREAGE MEASURER 10 mg 10 mg, Intravenous, ONCE, 1 dose, La 05/27/19 at 1230, DEANGELO ketorolac (TORADOL) injection 15 mg Given 05/27/2019 3:30 PM COTTON ACREAGE MEASURER 15 mg 15 mg, Slow IV Push, ONCE, 1 dose, La 05/27/19 at 1600, DEANGELO, member of parliament approving Restricted medication: KATIA EMMANUEL magnesium sulfate 4 mEq/mL (50 %) injection Given 05/15 2:00 PM COTTON ACREAGE MEASURER 16 mEq 16 mEq 16 mEq (2 g), IV Piggyback, ONCE, 1 dose, La 05/27/19 at 1400, DEANGELO metoclopramide HCl (REGLAN) injection 10 mg Given 05/27/2019 3:30 PM COTTON ACREAGE MEASURER 10 mg 10 mg, Slow IV Push, ONCE, 1 dose, La 05/27/19 at 1600, DEANGELO NaCl 0.9% (NS) bolus infusion New Bag 05/27/2019 1:22 PM COTTON ACREAGE MEASURER 1,000 mL 999 mL/hr 1,000 mL at 999 mL/hr, 1,000 mL, IV Infusion, ONCE, 1 dose, La 05/27/19 at 1430, STAT ondansetron (ZOFRAN (PF)) injection 4 mg Given 05/27/2019 1:14 PM COTTON ACREAGE MEASURER 4 mg 4 mg, Slow IV Push, ONCE, 1 dose, La 05/27/19 at 1415, DEANGELO documented in this encounter [phone] (Work) documented as of this encounter
--- OUTSIDE RECORDS SUMMARY | 2019-09-01 20:01 | XMS REPORT | Summary of Care ---
:1955 Author Organization [facility] Address [address] [place] [id number] Care Team Providers Name Role Phone Isis Neely MD Primary Care Provider Reason for Visit Reason Comments Follow-up Hospital F/U (Routine) Status Reason Specialty Diagnoses / Referred By Referred To Procedures Contact Contact New Request IM-CARDIOVASCULAR Diagnoses Hypoxia Chest pain, unspecified type Juan Pablo Fisher, DISEASE / Procedures Discharge Follow-Up: Specialty Service IM-CARDIOVASCULAR DISEASE (Dr. Strong); 1 Week MD Cardiology [address] [place] [address]. [address] [place] [address] Encounter Details Date Type Department Care Team Description 04/27/2019 Office Visit [facility] Katie Strong (dyspnea on exertion) (Primary Dx); Cardiology- Anand Kiser MD Dyslipidemia; [address] [place] [address] [facility] Essential hypertension; Drive, [address] FRANDY on CPAP; [place], [place] Obesity (BMI 30 -39.9); [phone] Diastolic dysfunction [phone] Allergies Active Allergy Reactions Severity Noted Date Comments Amlodipine Swelling 03/28/2019 Hydromorphone (Bulk) Hallucinations 02/02/2018 Metronidazole Hcl Swelling 06/02/2015 Lisinopril Swelling, Cough 09/08/2017 Losartan Swelling 03/31/2018 Nifedipine Swelling 03/28/2019 Penicillins Hives 06/02/2015 documented as of this encounter (statuses as of 05/05/2019) Medications Medication Sig Dispensed Refills Start Date End Date Status vitamin B-12 (VITAMIN Take 1 tablet by 90 tablet 1 06/04/2017 Active B-12) 500 mcg tablet mouth daily. vitamin B-6 (VITAMIN Take 1 tablet by 90 tablet 1 06/04/2017 Active B-6) 100 mg tablet mouth daily. Blood-Glucose Meter Use as directed, 1 Kit 0 09/30/2017 Active (IllumioUCH VERIO IQ DX:E11.9 METER) Kit coenzyme Q10 [...] 04/24/19 19 Active deviceIndications: spacing device Bronchospasm acetaminophen-codeine 300-30 /2 - 1 tab Every 4hrs 15 tablet 0 04/24/2018 Active mg tabletIndications: Cough as needed for pain or cough requiring narcotic metFORMIN 1,000 mg Take 1 tablet by [...] po qPM with dinner hyperglycemia, unspecified whether termite helper insulin use repaglinide 0.5 mg Take 1 tablet by mouth 270 tablet 1 019 Active tabletIndications: Type 2 3 (three) times daily diabetes mellitus with before meals. hyperglycemia, unspecified whether termite helper insulin use traMADol (ULTRAM) 50 mg Take [...] TABLET BY MOUTH 90 tablet 3 04/06/20 Active tabletIndications: AT BEDTIME, STOP Hypercholesterolemia TAKING ATORVASTATIN documented as of this encounter (statuses as of 05/05/2019) Active Problems Problem Noted Date Diastolic dysfunction [...] as of this encounter (statuses as of 05/05/2019) Resolved Problems Problem Noted Date Resolved Date Chest pain 01/17/2018 11/12/2018 Immunization counseling 01/23/2017 11/12/2018 Temporal headache 01/16/2017 11/12/[address] scan 12/06/2016 11/12/2018 documented as of this encounter (statuses as of 05/05/2019) Immunizations Name Administration Dates Next Due Influenza [...] Sign Reading Time Taken Comments Blood Pressure 143/90 04/27/2019 2:38 PM WOOD LATHER Pulse 91 04/27/2019 2:33 PM WOOD LATHER Temperature - - Respiratory Rate 19 04/27/2019 2:33 PM WOOD LATHER Oxygen Saturation 95% 04/27/2019 2:33 PM WOOD LATHER Inhaled Oxygen Concentration - - Weight 96.3 kg (212 lb 6.4 oz) 04/27/2019 2:33 PM WOOD LATHER Height 170.2 cm (5' 7") 04/27/2019 2:33 PM WOOD LATHER Body Mass Index 33.27 04/27/2019 2:33 PM WOOD LATHER documented in this encounter Progress Notes Katie Strong MD - 04/27/2019 2:00 PM CST [facility] Cardiology Consult Note Patient: Amy Montalvo Date of : 1955 Primary Care Physician: Rosalina Neely CHIEF COMPLAINT: Chief Complaint Patient presents with Follow-up Hospital F/U HISTORY OF PRESENT ILLNESS: Amy Montalvo is a 63 year old female presents to clinic for follow up SOTO. History from patient herself. Since last OV, feeling well on the whole. No new cardiac complaints noted. SOTO NYHA Class II-III. No history of exertional chest pain. No PND or orthopnea. No pedal edema. No exertional palpitationsor palpitations at rest. No syncopal attacks. Risk factors: uncontrolled DM, HTN, Dyslipidemia, FRANDY Previous Cardiac Studies: IMAGING - I personally reviewed, pertinent results as below: EC01/2019 Sinus tachycardia Otherwise normal ECG When compared with ECG of 02-FEB-2019 16:21, No significant change has occurred Echo 01/2019 Interpretation Summary The study was technically adequate. A complete two-dimensional transthoracic echocardiogram was performed (2D, M-mode, Doppler and color flow Doppler). Compared to prior study, changes are noted. There is moderate concentric left ventricular hypertrophy. Diastolic function is impaired relaxation. The left ventricular wall motion is normal. Ejection Fraction = 60-65%. Right ventricular systolic pressure is elevated at 45-50 mmHg. Echo 01/2018 Interpretation Summary The study was technically adequate. There is no comparison study available. There is moderate concentric left ventricular hypertrophy. Ejection Fraction = 60-65%. Diastolic function is impaired relaxation. The left ventricular wall motion is normal. Estimated RA pressure is 0-5 mmHg. Right ventricular systolic pressure is elevated at 40-45 mmHg. Nm Stress 01/2018 Normal myocardial perfusion scan with preserved ejection fraction and normal wall thickening. Cath 09/2018 DIAGNOSTIC IMPRESSION: Unremarkable RHC. No evidence of pulmonary hypertension, left or right sided heart failure. Nonobstructive CAD Lif[employer] screen reviewed 10/2018 Bilateral no plaque noted. AAA neg PAST MEDICAL HISTORY Past Medical History: Diagnosis Date Asthma B12 deficiency Chronic antral gastritis 05/08/2017 Chronic constipation Diabetes mellitus Diverticula of colon Diverticulitis Ectopic Esophageal reflux History of Helicobacter infection Hyperlipidemia Hypertension Iron deficiency Multiple thyroid nodules 10/06/2017 FRANDY (obstructive sleep apnea) Osteoarthritis of left shoulder 10/03/2017 TB lung, latent Vitamin B6 deficiency 01/18/2017 Past Surgical History: Procedure Laterality Date BOWEL RESECTION SECTION COLONOSCOPY ESOPHAGOGASTRODUODENOSCOPY 03/27/2017 Family History Problem Relation Age of Onset Alzheimers dementia Mother Diabetes Father Hypertension Father Pulmonary Sister lung Cancer Brother lung Thyroid Sister SOCIAL HISTORY Social History Socioeconomic History Marital status: Spouse [...] Sexual Activity Alcohol use: No Alcohol/week: 0.0 standard drinks Drug use: No Sexual activity: Never control/protection: Post-menopausal Lifestyle Physical activity: Days per week: Not on file Minutes per session: Not on file Stress: Not on file Relationships Social connections: Talks on phone: Not on file Gets together: Not on file Attends congregational service: Not on file Active member of [...] file Social History Narrative , 2 children [place] to local [employer] ALLERGIES Allergies Allergen Reactions Amlodipine Swelling Dilaudid [Hydromorphone (Bulk)] Hallucinations Flagyl [Metronidazole Hcl] Swelling Lisinopril Swelling and Cough Losartan Swelling Nifedipine Swelling Pcn [Penicillins] Hives MEDICATIONS Patient's Medications START taking these medications No medications on file CONTINUE taking these medications which have NOT CHANGED ACETAMINOPHEN-CODEINE 300-30 MG TABLET 1/2 - 1 tab Every 4hrs as needed for pain or cough requiring narcotic ALBUTEROL 2.5 MG /3 ML (0.083 %) NEBULIZER SOLUTION Inhale 3 mL every 4 (four) hours as needed for Wheezing or Shortness of Breath. Via nebulizer ALBUTEROL 90 MCG/ACTUATION INHALER 2 puffs with spacer 4 times a day for at least 7 days ALBUTEROL 90 MCG/ACTUATION INHALER Inhale 2 Puffs every 6 (six) hours as needed for Wheezing or Shortness of Breath. ASPIRIN 81 MG EC TABLET Take 1 tablet by mouth daily. Take with food. BLOOD SUGAR DIAGNOSTIC STRIP Use as directed. E11.21. Check once daily BLOOD-GLUCOSE METER ([employer]erry[employer] VERIO IQ METER) KIT Use as directed, DX:E11.9 CODEINE-GUAIFENESIN 10-100 MG/5 ML SOLUTION Take 5-10 mL by mouth every 4 (four) hours as neededfor Cough. COENZYME Q10 (COQ-10) 100 MG SOFTGEL Take 1 capsule by mouth daily. DULAGLUTIDE (TRULICITY) 1.5 MG/0.5 ML PNIJ inject 1.5 mg under the skin weekly. FERROUS GLUCONATE 324 MG (37.5 MG IRON) TABLET TAKE 1 TABLET BY MOUTH ONCE DAILY FLUTICASONE-VILANTEROL (BREO ELLIPTA) 100-25 MCG/DOSE DSDV Inhale 1 Puff daily. Rinse mouth after each use. FUROSEMIDE 20 MG TABLET Take 1 tablet by mouth every Friday, Friday and Friday. GABAPENTIN 100 MG CAPSULE Take 1 capsule by mouth at bedtime. GLIMEPIRIDE 4 MG TABLET 1 tablet po qAM with breakfast, 1/2 tablet po qPM with dinner HYDRALAZINE 50 MG TABLET Take 1 tablet by mouth 2 (two) times daily. STOP NIFEDIPINE INHALATIONAL SPACING DEVICE May substitute other spacing device LANCETS 33 GAUGE MISC Use as directed. E11.21. Check once daily MAGNESIUM OXIDE 400 MG (241.3 MG MAGNESIUM) TABLET TAKE 2 TABLETS BY MOUTH 4 TIMES DAILY MAGNESIUM OXIDE 400 MG (241.3 MG MAGNESIUM) TABLET TAKE 2 TABLETS BY MOUTH 4 TIMES DAILY MESALAMINE 1.2 GRAM EC TABLET METFORMIN 1,000 MG TABLET Take 1 tablet by mouth 2 (two) times daily with meals. METOPROLOL SUCCINATE XL 50 MG 24 HR TABLET Take 1 tablet by mouth daily. OMEPRAZOLE 40 MG CAPSULE PREGABALIN (LYRICA ORAL) Take by mouth. REPAGLINIDE 0.5 MG TABLET Take 1 tablet by mouth 3 (three) times daily before meals. ROSUVASTATIN 20 MG TABLET TAKE 1 TABLET BY MOUTH AT BEDTIME, STOP TAKING ATORVASTATIN TIZANIDINE 2 MG TABLET Take 0.5-1 tablets by mouth every 8 (eight) hours as needed (muscle pain or spasm). TRAMADOL (ULTRAM) 50 MG TABLET Take 1 tablet by mouth every 6 (six) hours as needed for Pain (scale 7-10). VITAMIN B-12 (VITAMIN B-12) 500 MCG TABLET Take 1 tablet by mouth daily. VITAMIN B-6 (VITAMIN B-6) 100 MG TABLET Take 1 tablet by mouth daily. VITAMIN D2 50,000 UNIT CAPSULE TAKE 1 CAPSULE BY MOUTH EVERY 2 WEEKS WITH FOOD START taking Modified Medications as Prescribed No medications on file STOP taking these medications No medications on file REVIEW OF SYSTEMS: Comprehensive 10-system review was conducted and were negative except for what's noted in the HPI. The following systems were reviewed: Constitutional, cardiovascular, respiratory, gastrointestinal, genitourinary, musculoskeletal, neurologic, psychiatric, endocrinological, and hematological. PHYSICAL EXAMINATION: Vitals: 04/27/19 1433 04/27/19 1438 BP: (!) 149/94 (!) 143/90 BP Location: Left arm Patient Position: Sitting BP CUFF SIZE: Adult Large Pulse: 91 Resp: 19 SpO2: 95% Weight: 212 lb 6.4 oz (96.3 kg) Height: 5' 7" (1.702 m) General: no apparent distress HEENT: normocephalic atraumatic Neck: supple, no lymphadenopathy, no bruits, no JVD Lungs: clear to auscultation bilaterally. No wheezes or rhonchi. No increased work of breathing. Cardio: Regular rate and rhythm, S1&S2 normal, no murmurs, rubs or gallops Abdomen: soft; non-tender; non-distended; normoactive bowel sounds. : not examined Rectal: not examined Extremities: no clubbing, cyanosis, or edema. Skin: no rashes, no visible lesions. Neuro: no gross focal deficits LABS - Reviewed pertinent labs as below: CBC BMP PT/INR WBC (10*3/L) Date Value 02/25/2019 8.60 NA (mmol/L) Date Value 03/20/2019 141 No results found for: PT PLT (10*3/L) Date Value 02/25/2019 263 K (mmol/L) Date Value 03/20/2019 4.5 INR (no units) Date Value 02/11/2019 1.0 HGB (g/dL) Date Value 02/25/2019 11.2 (L) BUN (mg/dL) Date Value 03/20/2019 17 HCT (%) Date Value 02/25/2019 37.9 CREATININE (mg/dL) Date Value 03/20/2019 0.87 LIPID PROFILE GLUCOSE (mg/dL) Date Value 03/20/2019 168 (H) GLUCOSE-Q (no units) Date Value 02/12/2017 3+ CHOL (mg/dL) Date Value 11/26/2018 116 (L) CHOLESTEROL, TOTAL-Q (mg/dL) Date Value 02/12/2017 148 TSH LDL CHOL (mg/dL) Date Value 11/26/2018 27 [id number]-[id number]-W (mg/dL (calc)) Date Value 02/12/2017 63 TSH (mIU/L) Date Value 02/02/2019 0.71 TSH, 3RD GENERATION-Q (mIU/L) Date Value 02/12/2017 0.72 CARDIAC ENZYMES HDL CHOLESTEROL-Q (mg/dL) Date Value 02/12/2017 63 HDL (mg/dL) Date Value 11/26/2018 67 CK (U/L) Date Value 10/29/2018 61 TRIG (mg/dL) Date Value 11/26/2018 112 TRIGLYCERIDES-Q (mg/dL) Date Value 02/12/2017 141 LFTs CK-MB (ng/mL) Date Value 11/14/2016 1.17 AST(SGOT) (U/L) Date Value 03/20/2019 27 TROPONIN I (ng/mL) Date Value 02/25/2019 0.004 ALT(SGPT) (U/L) Date Value 12/30/2018 18 ALTv (U/L) Date Value 03/20/2019 18 No results found for: BNP LDL CHOL (mg/dL) Date Value 11/26/2018 27 [id number]-[id number]-W (mg/dL (calc)) Date Value 02/12/2017 63 Recent Labs 02/25/19 1655 TROPNI 0.004 Recent Labs 11/26/18 0841 TRIG 112 LDL CHOL (mg/dL) Date Value 11/26/2018 27 EST-[id number]-U (mg/dL (calc)) Date Value 02/12/2017 63 NT-proBNP (pg/mL) Date Value 03/20/2019 100 ASSESSMENT/PLAN 1. SOTO (dyspnea on exertion) 2. Dyslipidemia 3. Essential hypertension 4. FRANDY on CPAP 5. Obesity (BMI 30-39.9) 6. Diastolic dysfunction SOTO NYHA Class II-III: Multifactorial. Obese, noncompliant with FRANDY, deconditioning, diastolic dysfunction. Recommended aggressive lifestyle modification including weight reduction. Aggressive risk factor modifications. Nonobs CAD: on ASA 81 mg daily Dyslipidemia: On crestor 20 mg daily. HTN: On Toprol XL 50 mg daily and hydralazine 50 mg BID (Procardia XL changed to hydralazine in viewof edema) T2DM: as per primary team. FRANDY: recommended to be compliant with CPAP. Recommended goal BP < 130/80 consistently, LDL << 70, HbA1c < 6.5. Follow up with [facility] Cardiology PRN. Patient's diease process and its evaluation and treatment were discussed. We discussed each of for cardio vascular-related problems and discussed long-term goals and expectations for the each problem.I reviewed each of the cardiac medications in detail. Reviewed the medication with patient in detail recommended to continue taking the current medications without further changes. Recommended goal BP < 130/80 consistently, LDL << 70, HbA1c < 6.5. Recommended, explained and stressed the importance of healthy eating habits and exercises and lifestyle modifications Follow up as planned is predicated on symptoms stability and/or acceptable test results. Patient is urged to call in sooner should problems arise or if there is no improvement in cardiac symptoms. ER warning signs and symptoms explained and patient verbalized understanding. My diagnostic impression and treatment plans were discussed at length with the patient. All side effects as well as drug-drug interactions and risks discussed at length. Ample opportunity was offered and encouraged to ask questions during this visit and patient appreciated the answers given by me andverbzalised statisfcation in the answers given. We reviewed the [place] Heart [employer] recommendations for reduction of overall cardio vascular risk. The importance of monitoring the blood pressure carefully both at home on regular basis along with other physicians appointment was stressed in detail. In addition we discussed target LDL levels for optimal risk reduction. It was advised that to daily physical activity be performed with 30 minutes of sustained exercise for both cardio vascular fitness and improvement for generalized medical health and well-being. Thank you for allowing us to participate in the care of Amy Montalvo. If you have any questions or concerns please feel free to call our office at [phone]. I would be happy to be of further assistance for Amy Montalvo wellbeing. Asif Strong MD Development Team Lead, Division of Cardiology [facility] LATHER documented in this encounter Plan of Treatment Date Type Specialty Care Team Description 07/15/2019 Office Visit Pulmonary Disease Alice Rodriguez, DO [address] [place] [address] Health Maintenance Due Date Last Done Comments [...] URINE MICROALBUMIN 11/27/2019 11/26/2018, 02/12/2017 CREATININE (SERUM) 03/20/2020 03/20/2019, 02/25/2019, 02/16/2019, Additional history exists COLONOSCOPY 02/25/2027 02/25/2017 LUNG CANCER SCREEN: Recommended Discontinued 02/03/2018, 06/2017, for age 55-80 with 30 + pack year 11/14/2016 history PNEUMOCOCCAL 0-64 YEARS COMBINED Completed 02/07/2018 SERIES HEPATITIS C (HCV) SCREEN Completed 11/20/2018 INFLUENZA VACCINE Completed 02/12/2019, 02/07/2018 documented as of this encounter Results Not on filedocumented in this encounter Visit Diagnoses Diagnosis SOTO (dyspnea on exertion) - Primary Other dyspnea and respiratory abnormalit y Dyslipidemia Other and unspecified hyperlipidemia Essential hypertension Unspecified essential hypertension FRANDY on CPAP Obstructive sleep apnea (adult) (pediatr ic) Obesity (BMI 30-39.9) Obesity, unspecified Diastolic dysfunction Heart disease, unspecified documented in this encounter [phone] (Work) documented as of this encounter
--- OUTSIDE RECORDS SUMMARY | 2019-09-01 20:01 | XMS REPORT | Summary of Care ---
:1955 Author Organization [facility] Address [address] [place] [address] Care Team Providers Name Role Phone Isis Neely MD Primary Care Provider Reason for Visit Reason Comments Follow-up Hospital F/U (Routine) Status Reason Specialty Diagnoses / Referred By Referred To Procedures Contact Contact New Request IM-CARDIOVASCULAR Diagnoses Hypoxia Chest pain, unspecified type Juan Pablo Fisher, DISEASE / Procedures Discharge Follow-Up: Specialty Service IM-CARDIOVASCULAR DISEASE (Dr. Strong); 1 Week MD Cardiology [address] [place] [address]. [address] [place] [address] Encounter Details Date Type Department Care Team Description 04/27/2019 Office Visit [facility] Katie Strong (dyspnea on exertion) (Primary Dx); Cardiology- Anand Kiser MD Dyslipidemia; [address] [place] [address] [facility] Essential hypertension; Drive, [address] FRANDY on CPAP; [place], [place] Obesity (BMI 30 -39.9); [phone] Diastolic dysfunction [phone] Allergies Active Allergy Reactions Severity Noted Date [...] as directed, 1 Kit 0 09/30/2017 Active (ARDACOUCH VERIO IQ DX:E11.9 METER) Kit coenzyme Q10 [...] po qPM with dinner hyperglycemia, unspecified whether meterman insulin use repaglinide 0.5 mg Take 1 tablet by mouth 270 tablet 1 019 Active tabletIndications: Type 2 3 (three) times daily diabetes mellitus with before meals. hyperglycemia, unspecified whether meterman insulin use traMADol (ULTRAM) 50 mg Take [...] Comments Blood Pressure 143/90 04/27/2019 2:38 PM INSURANCE OFFICE SUPERVISOR Pulse 91 04/27/2019 2:33 PM INSURANCE OFFICE SUPERVISOR Temperature - - Respiratory Rate 19 04/27/2019 2:33 PM INSURANCE OFFICE SUPERVISOR Oxygen Saturation 95% 04/27/2019 2:33 PM INSURANCE OFFICE SUPERVISOR Inhaled Oxygen Concentration - - Weight 96.3 kg (212 lb 6.4 oz) 04/27/2019 2:33 PM INSURANCE OFFICE SUPERVISOR Height 170.2 cm (5' 7") 04/27/2019 2:33 PM INSURANCE OFFICE SUPERVISOR Body Mass Index 33.27 04/27/2019 2:33 PM INSURANCE OFFICE SUPERVISOR documented in this encounter Progress Notes Katie Strong MD - 04/27/2019 2:00 PM CST [facility] Cardiology Consult Note Patient: Amy Montalvo Date [...] file Gets together: Not on file Attends evangelical service: Not on file Active member of [...] file Social History Narrative , 2 children [place] to local [employer] ALLERGIES Allergies Allergen Reactions Amlodipine Swelling [...] directed. E11.21. Check once daily BLOOD-GLUCOSE METER ([employer] VERIO IQ METER) KIT Use as directed, [...] LDL CHOL (mg/dL) Date Value 11/26/2018 27 QTA-[id number]-H (mg/dL (calc)) Date Value 02/12/2017 63 TSH [...] LDL CHOL (mg/dL) Date Value 11/26/2018 27 [id number]-[id number]-R (mg/dL (calc)) Date Value 02/12/2017 63 Recent Labs 02/25/19 1655 TROPNI 0.004 Recent Labs 11/26/18 0841 TRIG 112 LDL CHOL (mg/dL) Date Value 11/26/2018 27 [id number]-[id number]-T (mg/dL (calc)) Date Value 02/12/2017 63 NT-proBNP [...] 70, HbA1c < 6.5. Follow up with [facility] Cardiology PRN. Patient's diease process and its [...] in the answers given. We reviewed the [place] Heart Association recommendations for reduction of overall [...] feel free to call our office at [phone]. I would be happy to be of further assistance for Amy Montalvo wellbeing. Asif Strong MD Stem Mounter, Division of Cardiology [facility] RANCE OFFICE SUPERVISOR documented in this encounter Plan of Treatment Date Type Specialty Care Team Description 07/15/2019 Office Visit Pulmonary Disease Alice Rodriguez, DO [address] [place] [address] Health Maintenance Due Date Last [...] Heart disease, unspecified documented in this encounter [phone] (Work) documented as of this encounter
--- OUTSIDE RECORDS SUMMARY | 2019-09-01 20:02 | XMS REPORT | Summary of Care ---
:1955 Author Organization [facility] [place] Address [address] [place] [address] Care Team Providers Name Role Phone Isis Neely MD Primary Care Provider Reason for Visit Reason Comments Back Pain Abdominal Pain Nausea Encounter Details Date Type Department Care Team Description 05/18/2019 Office Visit [facility] Family Florinda, Wondiful Abdo naresh pain of multiple sites (Primary Dx); Medicine - Anand Marinelli MD Watery diarrhea; [employer] [facility] Geri salvador [address] [place] [address] DR Beckett; [place], [place] Acute abdomen; [phone] Rebound tenderness; [phone] Nausea Allergies Active Allergy Reactions Severity Noted Date Comments Amlodipine Swelling 03/28/2019 Hydromorphone (Bulk) Hallucinations 02/02/2018 Metronidazole Hcl Swelling 06/02/2015 Lisinopril Swelling, Cough 09/08/2017 Losartan Swelling 03/31/2018 Nifedipine Swelling 03/28/2019 Penicillins Hives 06/02/2015 documented as of this encounter (statuses as of 05/18/2019) Medications Medication Sig Dispensed Refills Start Date [...] Active deviceIndications: spacing device Bronchospasm acetaminophen-codeine 300-30 1/2 - 1 tab Every 4hrs 15 tablet [...] po qPM with dinner hyperglycemia, unspecified whether fpc insulin use repaglinide 0.5 mg Take 1 tablet by mouth 270 tablet 1 019 Active tabletIndications: Type 2 3 (three) times daily diabetes mellitus with before meals. hyperglycemia, unspecified whether fpc insulin use traMADol (ULTRAM) 50 mg Take [...] as of this encounter (statuses as of 05/18/2019) Active Problems Problem Noted Date Diastolic dysfunction [...] as of this encounter (statuses as of 05/18/2019) Resolved Problems Problem Noted Date Resolved Date Chest pain 01/17/2018 11/12/2018 Immunization counseling 01/23/2017 11/12/2018 Temporal headache 01/16/2017 11/12/[address] scan 12/06/2016 11/12/2018 documented as of this encounter (statuses as of 05/18/2019) Immunizations Name Administration Dates Next Due Influenza [...] Sign Reading Time Taken Comments Blood Pressure 132/85 05/18/2019 2:13 PM SUPPLY MANAGER Pulse 104 05/18/2019 2:13 PM SUPPLY MANAGER Temperature 37.4 C (99.3 F) 05/18/2019 2:13 PM SUPPLY MANAGER Respiratory Rate - - Oxygen Saturation 94% 05/18/2019 2:13 PM SUPPLY MANAGER Inhaled Oxygen Concentration - - Weight 94.4 kg (208 lb 3.2 oz) 05/18/2019 2:13 PM SUPPLY MANAGER Height 170.2 cm (5' 7") 05/18/2019 2:13 PM SUPPLY MANAGER Body Mass Index 32.61 05/18/2019 2:13 PM SUPPLY MANAGER documented in this encounter Patient Instructions Patient InstructionsRosalina Neely MD - 05/18/2019 2:00 PM SUPPLY MANAGER Abdominal Pain Abdominal pain is pain in the stomach or belly area. Everyone has this pain from time to time. In many cases it goes away on its own. But abdominal pain can sometimes be due to a serious problem, such as appendicitis. So its important to know when to get help. Causes of abdominal pain There are many possible causes of abdominal pain. Common causes in adults include: Constipation, diarrhea, or gas Stomach acid flowing back up into the esophagus (acid reflux or heartburn) Severe acid reflux, called GERD (gastroesophageal reflux disease) A sore in the lining of the stomach or small intestine (peptic ulcer) Inflammation of the gallbladder, liver,or pancreas Gallstones or kidney stones Appendicitis Intestinal blockage An internal organ pushing through a muscle or other tissue (hernia) Urinary tract infections In women, menstrual cramps, fibroids, ovarian cysts, pelvic inflammatory disease, or endometriosis Inflammation or infection of the intestines, including Crohn's disease and ulcerative colitis Irritable bowel syndrome Diagnosing the cause of abdominal pain Your healthcare provider will give you a physical exam help find the cause of your pain. If needed, you will have tests. Belly pain has many possible causes. So it can be hard to find the reason for your pain. Giving details about your pain can help. Tell your provider where and when you feel the pain, and what makes it better or worse. Also let your provider know if you have other symptoms such as: Fever Tiredness Upset stomach (nausea) Vomiting Changes in bathroom habits Blood in the stool or black, tarry stool Weight loss that you can't explain (involuntary weight loss?) Also report any family history of stomach or intestinal problems, or cancers. Tell your provider about all your alcohol use and drug use. Tell your provider about all medicines you use, including herbs, vitamins, and supplements. Treating abdominal pain Some causes of pain need emergency medical treatment right away. These include appendicitis or a bowel blockage. Other problems can be treated with rest, fluids, or medicines. Your healthcare provider can give you specific instructions for treatment or self-care based on what is causing your pain. If you have vomiting or diarrhea,sip water or other clear fluids. When you are ready to eat solid foods again, start with small amounts of ejqy-xv-cljlyq, low- fat foods. These include apple sauce, toast, or crackers. When to get medical care Call 911or go to the hospital right away if you: Cant pass stool and are vomiting Are vomiting blood or have bloody diarrhea or black, tarry diarrhea Have chest, neck, or shoulder pain Feel like you might pass out Have pain in your shoulder blades with nausea Have sudden, severe belly pain Have new, severepain unlike any you have felt before Have a belly that is rigid, hard, and hurts to touch Call your healthcare provider if you have: Pain for more [id number] Bloating for more than 2days Diarrhea for more emcy4fbzp A fever of 100.4F (38C) or higher, or as directed by your healthcare provider Pain that gets worse Weight loss for no reason Continued lack of appetite Blood in your stool How to prevent abdominal pain Here are some tips to help prevent abdominal pain: Eat smaller amounts of food at each meal. Don't eat greasy, fried, or other high-fat foods. Don't eat foods that give you gas. Exercise regularly. Drink plenty of fluids. To help prevent GERD symptoms: Quit smoking. Reduce alcohol and foods that increase stomach acid. Don't use aspirin or omdv-sxk-awrjwgb pain and fever medicines, if possible. This includes nonsteroidal anti-inflammatory drugs (NSAIDs). Lose excess weight. Finish eating at least 2 hours before you go to bed or lie down. Raise the head of your bed. [employer] last reviewed this educational content on 07/13/201819998522-0615 [employer]. [address] [place] [address]. All rights reserved. This information is not intended as a substitute for professional medical care. Always follow your healthcare professional's instructions. LY MANAGER documented in this encounter Progress Notes Rosalina Neely MD - 05/18/2019 2:00 PM CST Cc: Chief Complaint Patient presents with Back Pain Abdominal Pain Nausea HPI Amy Cecelia Montalvo is a 63 year old female who presents today for abdominal pain. Abdominal Pain Pain location: Periumbilical and suprapubic Pain radiates to: Back Pain severity: Severe Onset quality: Sudden Duration: 3 days Timing: Constant Progression: Worsening Chronicity: New Context: not alcohol use, not awakening from sleep, not diet changes, not eating, not laxative use, not medication withdrawal, not previous surgeries, not recent illness, not recent sexual activity, not recent travel, not retching, not sick contacts, not suspicious food intake and not trauma Context comment: Recent antibiotics for dental issues including clindamycin and clarithromycin Relieved by: Urination (urination helps decrease the pain some) Worsened by: Nothing Ineffective treatments: clarithromycin. Associated symptoms: chills, diarrhea, fever and nausea Associated symptoms: no chest pain, no constipation, no dysuria, no fatigue, no hematemesis, no hematochezia, no hematuria and no vomiting Risk factors: obesity Risk factors comment: Multiple antibiotics Allergies Amy is allergic to amlodipine; dilaudid [hydromorphone (bulk)]; flagyl [metronidazole hcl]; lisinopril; losartan; nifedipine; and pcn [penicillins]. Medications Outpatient Medications Prior to Visit Medication Sig Dispense Refill ROSUVASTATIN 20 mg tablet TAKE 1 TABLET BY MOUTH AT BEDTIME, STOP TAKING ATORVASTATIN 90 tablet 3 hydrALAZINE 50 mg tablet Take 1 tablet by mouth 2 (two) times daily. STOP NIFEDIPINE 180 tablet 1 furosemide 20 mg tablet Take 1 tablet by mouth every Friday, Friday and Friday. 36 tablet 1 MAGNESIUM OXIDE 400 mg (241.3 mg magnesium) tablet TAKE 2 TABLETS BY MOUTH 4 TIMES DAILY 240 tablet 5 albuterol 2.5 mg /3 mL (0.083 %) nebulizer solution Inhale 3 mL every 4 (four) hours as needed for Wheezing or Shortness of Breath. Via nebulizer 120 Vial 5 albuterol 90 mcg/actuation inhaler Inhale 2 Puffs every 6 (six) hours as needed for Wheezing or Shortness of Breath. 8.5 g 5 codeine-guaifenesin 10-100 mg/5 mL solution Take 5-10 mL by mouth every 4 (four) hours as neededfor Cough. 120 mL 0 pregabalin (LYRICA ORAL) Take by mouth. VITAMIN D2 50,000 unit capsule TAKE 1 CAPSULE BY MOUTH EVERY 2 WEEKS WITH FOOD 6 capsule 1 dulaglutide (TRULICITY) 1.5 mg/0.5 mL PnIj inject 1.5 mg under the skin weekly. 12 Syringe 3 aspirin 81 mg EC tablet Take 1 tablet by mouth daily. Take with food. 100 tablet 3 traMADol (ULTRAM) 50 mg tablet Take 1 tablet by mouth every 6 (six) hours as needed for Pain (scale 7-10). 20 tablet 0 glimepiride 4 mg tablet 1 tablet po [...] 0 mesalamine 1.2 gram EC tablet 1 omeprazole 40 mg capsule metoprolol succinate XL 50 mg 24 hr tablet Take 1 tablet by mouth daily. 90 tablet 1 FERROUS GLUCONATE 324 mg (37.5 mg [...] E11.21. Check once daily 100 Strip 3 lancets 33 gauge Misc Use as directed. E11.21. Check once daily 100 Each 3 metFORMIN 1,000 mg tablet Take 1 tablet by mouth 2 (two) times daily with meals. 180 tablet 3 acetaminophen-codeine 300-30 mg tablet 1/2 - 1 [...] softgel Take 1 capsule by mouth daily. (Patient taking differently:Take 200 mg by mouth daily.) Blood-Glucose Meter ([employer] VERIO IQ METER) Kit Use as directed, DX:E11.9 1 Kit 0 vitamin B-12 (VITAMIN B-12) 500 mcg tablet Take 1 tablet by mouth daily. 90 tablet 1 vitamin B-6 (VITAMIN B-6) 100 mg tablet Take 1 tablet by mouth daily. 90 tablet 1 No facility-administered medications prior to visit. Histories [...] file Gets together: Not on file Attends tenriism service: Not on file Active member of [...] file Social History Narrative , 2 children [place] to local [email or web address] Family History Problem Relation Age of Onset Alzheimers dementia Mother Diabetes Father Hypertension Father Pulmonary Sister lung Cancer Brother lung Thyroid Sister Review of Systems Constitutional: Positive for chills and fever. Negative for fatigue. HENT: Negative. Eyes: Negative. Respiratory: Negative. Cardiovascular: Negative. Negative for chest pain. Gastrointestinal: Positive for abdominal pain, diarrhea and nausea. Negative for blood in stool, constipation, hematemesis, hematochezia and vomiting. Genitourinary: Negative. Negative for dysuria and hematuria. Musculoskeletal: Negative. Skin: Negative. Neurological: Negative. Psychiatric/Behavioral: Negative. Endocrine: Endocrine negative Vital Signs BP 132/85 | Pulse 104 | Temp 37.4 C (99.3 F) (Tympanic) | Ht 5' 7" (1.702 m) | Wt 208 lb 3.2oz (94.4 kg) | SpO2 94% | BMI 32.61 kg/m Physical Exam Constitutional: She is oriented to person, place, and time. She appears well- developed and well-nourished. She appears distressed (grimacing in pain, walking very slowly). HENT: Head: Normocephalic. Mouth/Throat: Mucous membranes are normal. Eyes: Pupils are equal, round, and reactive to light. Conjunctivae are normal. No scleral icterus. Neck: Neck supple. No thyromegaly present. Cardiovascular: Regular rhythm, normal heart sounds and intact distal pulses. Tachycardia present. Exam reveals no gallop and no friction rub. No murmur heard. Pulmonary/Chest: Effort normal and breath sounds normal. She has no wheezes. She has no rales. Abdominal: Soft. She exhibits no distension and no mass. Bowel sounds are decreased. There is tenderness in the right lower quadrant, periumbilical area, suprapubic area, left upper quadrant and left lower quadrant. There is rebound and guarding. There is no rigidity and no CVA tenderness. Musculoskeletal: She exhibits no edema. Lymphadenopathy: She has no cervical adenopathy. Neurological: She is alert and oriented to person, place, and time. Skin: Skin is warm and dry. No rash noted. No pallor. Psychiatric: She has a normal mood and affect. Her behavior is normal. Nursing note and vitals reviewed. Assessment/Plan Diagnoses and all orders for this visit: ICD-10-CM ICD-9-CM 1. Abdominal pain of multiple sites R10.9 789.09 2. Watery diarrhea R19.7 787.91 3. Chills R68.83 780.64 4. Acute abdomen R10.0 789.00 5. Rebound tenderness R10.829 789.60 6. Nausea R11.0 787.02 The patient is presenting with acute abdomen of unclear etiology. I suspect she may have C diff given the h/o recent antibiotic tx (including clindamycin). Pancreatitis and diverticulitis are also onmy Ddx susy given her h/o Trulicity use and h/o diverticulitis respectively. Referred to the [facility] ER for further evaluation. Report called to Zeinab at the [facility] ER. Plan of care, desired health behaviors, goals, [...] at a future visit. If applicable, the [facility] database was accessed to review any controlled substance prescription claims data. If the patient is taking prescribed medications, the [employer] prescription claims data in Patient Engagement Systems was reviewed to assess patient compliance with the medication treatment plan. Follow-up: Return per ER/hospital discharge. Follow-up sooner if any problems or concerns. Scribe Attestation Pearl Gil , am scribing for, and in the presence of, Rosalina Neely MD who performed the services described here-in. Pearl Garland, May 18, 2019, 2:23 PM Physician Attestation I, Rosalina Neely MD, personally performed the services described in this documentation , as scribed by, Pearl Garland in my presence and it is both accurate and complete. Rosalina Neely MD May 18, 2019, 2:23 PM LY MANAGER documented in this encounter Plan of Treatment Date Type Specialty Care Team Description 07/15/2019 Office Visit Pulmonary Disease Alice Rodriguez DO [address] [place] [address] Health Maintenance Due Date Last [...] filedocumented in this encounter Visit Diagnoses Diagnosis Abdominal pain of multiple sites - Prima ry Abdominal pain, other specified site Watery diarrhea Chills Chills (without fever) Acute abdomen Abdominal pain, unspecified site Rebound tenderness Abdominal tenderness, unspecified site Nausea Nausea alone documented in this encounter (Work) documented as of this encounter
--- OUTSIDE RECORDS SUMMARY | 2019-09-01 20:03 | XMS REPORT | Summary of Care ---
:1955 Author Organization [facility] [employer] Address [address] [place] [address] Care Team Providers Name Role Phone Isis Neely MD Primary Care Provider Reason for Visit Reason Comments Refill Request Encounter Details Date Type Department Care Team Description 05/19/2019 Telephone [facility] Family Nixon Neely MD Refill Request Medicine - [address] [place] [address] [place] [address] [phone] Allergies Active Allergy Reactions Severity Noted Date Comments Amlodipine Swelling 03/28/2019 Hydromorphone (Bulk) Hallucinations 02/02/2018 Metronidazole Hcl Swelling 06/02/2015 Lisinopril Swelling, Cough 09/08/2017 Losartan Swelling 03/31/2018 Nifedipine Swelling 03/28/2019 Penicillins Hives 06/02/2015 documented as of this encounter (statuses as of 05/20/2019) Medications Medication Sig Dispensed Refills Start Date [...] po qPM with dinner hyperglycemia, 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 hyperglycemia, unspecified whether custodial insulin use traMADol (ULTRAM) 50 mg Take [...] tablet by mouth 180 tablet 1 03/19/20 19 Active tabletIndications: Essential 2 (two) times daily. [...] for Pain abdominal location, (scale 4-6). Diverticulitis documented as of this encounter (statuses as of 05/20/2019) Active Problems Problem Noted Date Diastolic dysfunction [...] as of this encounter (statuses as of 05/20/2019) Resolved Problems Problem Noted Date Resolved Date Chest pain 01/17/2018 11/12/2018 Immunization counseling 01/23/2017 11/12/2018 Temporal headache 01/16/2017 11/12/[address] scan 12/06/2016 11/12/2018 documented as of this encounter (statuses as of 05/20/2019) Immunizations Name Administration Dates Next Due Influenza [...] Office Visit Pulmonary Disease Alice Rodriguez DO [address] [place] [address] Health Maintenance Due Date Last [...] URINE MICROALBUMIN 11/27/2019 11/26/2018, 02/12/2017 CREATININE (SERUM) 05/18/2020 05/18/2019, 03/20/2019, 02/25/2019, Additional history exists COLONOSCOPY 02/25/2027 02/25/2017 LUNG [...] Effective Dates Phone Address Type AETNA AETNA [facility] [id number] 2013-Present PPO documented as of this encounter
--- OUTSIDE RECORDS SUMMARY | 2019-09-01 20:03 | XMS REPORT | Summary of Care ---
:1955 Author Organization [facility] [place] Address [address] [place] [address] Care Team Providers Name Role Phone Isis Neely MD Primary Care Provider Reason for Visit Reason Comments Back Pain Abdominal Pain Nausea Encounter Details Date Type Department Care Team Description 05/18/2019 Office Visit [facility] Family Florinda, Wondiful Abdo naresh pain of multiple sites (Primary Dx); Medicine - Anand Marinelli MD Watery diarrhea; [facility] salvador [address] [place] [address] DR Beckett; [place], [place] Acute abdomen; [phone] Rebound tenderness; [phone] Nausea Allergies Active Allergy Reactions Severity Noted [...] po qPM with dinner hyperglycemia, unspecified whether residential insulin use repaglinide 0.5 mg Take 1 tablet by mouth 270 tablet 1 019 Active tabletIndications: Type 2 3 (three) times daily diabetes mellitus with before meals. hyperglycemia, unspecified whether residential insulin use traMADol (ULTRAM) 50 mg Take [...] Comments Blood Pressure 132/85 05/18/2019 2:13 PM COOLING TOWER TECHNICIAN Pulse 104 05/18/2019 2:13 PM COOLING TOWER TECHNICIAN Temperature 37.4 C (99.3 F) 05/18/2019 2:13 PM COOLING TOWER TECHNICIAN Respiratory Rate - - Oxygen Saturation 94% 05/18/2019 2:13 PM COOLING TOWER TECHNICIAN Inhaled Oxygen Concentration - - Weight 94.4 kg (208 lb 3.2 oz) 05/18/2019 2:13 PM COOLING TOWER TECHNICIAN Height 170.2 cm (5' 7") 05/18/2019 2:13 PM COOLING TOWER TECHNICIAN Body Mass Index 32.61 05/18/2019 2:13 PM COOLING TOWER TECHNICIAN documented in this encounter Patient Instructions Patient InstructionsRosalina Neely MD - 05/18/2019 2:00 PM COOLING TOWER TECHNICIAN Abdominal Pain Abdominal pain is pain in [...] foods again, start with small amounts of xaec-ia-bgrnir, low- fat foods. These include apple sauce, [...] provider if you have: Pain for more [id number] Bloating for more than 2days Diarrhea for more [id number] A fever of 100.4F (38C) or higher, [...] increase stomach acid. Don't use aspirin or ozmx-bip-wxhxlzo pain and fever medicines, if possible. This includes nonsteroidal anti-inflammatory drugs (NSAIDs). Lose excess weight. Finish eating at least 2 hours before you go to bed or lie down. Raise the head of your bed. [email or web address] last reviewed this educational content on 07/13/201819999581-1447 [employer]. [address] [place] [address]. All rights reserved. This information is not intended as a substitute for professional medical care. Always follow your healthcare professional's instructions. ING TOWER TECHNICIAN documented in this encounter Progress Notes Rosalina [...] 200 mg by mouth daily.) Blood-Glucose Meter ([employer] VERIO IQ METER) Kit Use as directed, [...] file Gets together: Not on file Attends church service: Not on file Active member of [...] file Social History Narrative , 2 children [place] to local [employer] Family History Problem Relation Age of [...] and h/o diverticulitis respectively. Referred to the [facility] ER for further evaluation. Report called to Zeinab at the [facility] ER. Plan of care, desired health [...] at a future visit. If applicable, the [facility] database was accessed to review any controlled substance prescription claims data. If the patient is taking prescribed medications, the [employer] prescription claims data in [employer] was reviewed to assess patient compliance with [...] Neely MD May 18, 2019, 2:23 PM ING TOWER TECHNICIAN documented in this encounter Plan of Treatment Date Type Specialty Care Team Description 07/15/2019 Office Visit Pulmonary Disease Alice Rodriguez DO [address] [place] [address] Health Maintenance Due Date Last [...]
--- OUTSIDE RECORDS SUMMARY | 2019-09-01 20:03 | XMS REPORT | Summary of Care ---
:1955 Author Organization [facility] - [facility] Address [address] [place] [address] Care Team Providers Name Role Phone Isis Neely MD Primary Care Provider Reason for Referral MRI/CAT Scan (STAT) Status Reason Specialty Diagnoses / Referred By Referred To Procedures Contact Contact New Request Diagnostic Diagnoses Abdominal pain, unspecified abdominal location Mary Flores, Radiology Procedures CT ABDOMEN PELVIS W CONTRAST PAC [address] [place] [address] [place] [address] Reason for Visit Reason Comments Abdominal Pain Auth/Cert Status Reason Specialty Diagnoses / Referred By Referred To Procedures Contact Contact Emergency Medicine [facility] Em ergency Dept [address] [facility] [place] [address] Fax: Encounter Details Date Type Department Care Team Description 05/18/2019 Emergency ADC-Emergency Mary Flores, PAC Diverticulitis (Primary Dx); Department [address] [place] [address] Abdominal pain, unspecified abdominal lo cation [address] [facility] [place] [address] [place], [place] [id number] Allergies Active Allergy Reactions Severity Noted Date [...] as directed, 1 Kit 0 09/30/2017 Active (LeBUZZUCH VERIO IQ DX:E11.9 METER) Kit coenzyme Q10 (COQ-10) Take 1 capsule by 0 11/10/2017 Active 100 mg softgel mouth daily. 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 long-term current use of insulin blood sugar diagnostic Use as directed. 100 Strip 3 06/17/2018 Active stripIndications: Type 2 E11.21. Check diabetes mellitus with once daily diabetic nephropathy, with long-term current use of insulin lancets 33 gauge Use as directed. 100 Each 3 06/17/2018 Active MiscIndications: Type 2 E11.21. Check diabetes mellitus with once daily diabetic nephropathy, with long-term current use of insulin fluticasone-vilanterol Inhale 1 Puff 1 Each 5 07/13/2018 Active (BREO ELLIPTA) 100-25 daily. Rinse mcg/dose DsDvIndications: mouth after each Moderate persistent asthma use. with acute exacerbation magnesium oxide 400 mg TAKE 2 TABLETS BY 240 tablet 5 07/15/19 Active (241.3 mg magnesium) MOUTH 4 TIMES tabletIndications: DAILY Hypomagnesemia FERROUS GLUCONATE 324 mg TAKE 1 TABLET BY 90 tablet 1 09/02/19 Active (37.5 mg iron) MOUTH ONCE DAILY tabletIndications: Iron deficiency metoprolol succinate XL 50 Take 1 tablet by 90 tablet 1 2018 Active mg 24 hr mouth daily. tabletIndications: Essential hypertension omeprazole 40 mg capsule 0 09/12/2018 Active mesalamine 1.2 gram EC 1 08/05/2018 Active tablet gabapentin 100 mg Take 1 capsule by 90 capsule 1 11/10/2018 Active capsuleIndications: mouth at bedtime. Neuropathy of both feet tiZANidine 2 mg Take 0.5-1 30 tablet 0 11/10/2018 Ac tive tabletIndications: Myalgia tablets by mouth every 8 (eight) hours as needed (muscle pain or spasm). glimepiride 4 mg 1 tablet po qAM 135 tablet 1 12/02/2018 Active tabletIndications: Type 2 with breakfast, diabetes mellitus with 1/2 tablet po qPM hyperglycemia, unspecified with dinner whether care home insulin use repaglinide 0.5 mg Take 1 tablet by 270 tablet 1 12/02/2018 Active tabletIndications: Type 2 mouth 3 (three) diabetes mellitus with times daily hyperglycemia, unspecified before meals. 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 aspirin 81 mg EC Take 1 tablet by 100 tablet 3 01/13/2019 Active tabletIndications: mouth daily. Take Nonobstructive with food. atherosclerosis of coronary artery dulaglutide (TRULICITY) inject 1.5 mg 12 Syringe 3 01/19/2019 Active 1.5 mg/0.5 mL under the skin PnIjIndications: Type 2 weekly. diabetes mellitus with diabetic nephropathy, with long-term current use of insulin VITAMIN D2 50,000 unit TAKE 1 CAPSULE BY 6 capsule 1 9 Active capsuleIndications: MOUTH EVERY 2 Vitamin D deficiency WEEKS WITH FOOD pregabalin (LYRICA ORAL) Take by mouth. 0 Active albuterol 2.5 mg /3 mL Inhale 3 mL every 120 Vial 5 9 Active (0.083 %) nebulizer 4 (four) hours as solutionIndications: needed for Chronic obstructive Wheezing or pulmonary disease, Shortness of unspecified COPD type Breath. Via nebulizer albuterol 90 mcg/actuation Inhale 2 Puffs 8.5 g 5 02/05/20 19 Active inhalerIndications: every 6 (six) Hypoxia hours as needed for Wheezing or Shortness of Breath. codeine-guaifenesin 10-100 Take 5-10 mL by 120 mL 0 019 Active mg/5 mL mouth every 4 solutionIndications: (four) hours as Hypoxia needed for Cough. MAGNESIUM OXIDE 400 mg TAKE 2 TABLETS BY 240 tablet 5 02/19/20 19 Active (241.3 mg magnesium) MOUTH 4 TIMES tabletIndications: DAILY Hypomagnesemia furosemide 20 mg Take 1 tablet by 36 tablet 1 03/05/2019 Active tabletIndications: mouth every Hypoxia, Chest pain, Friday, Friday unspecified type and Friday. hydrALAZINE 50 mg Take 1 tablet by 180 tablet 1 03/19/2019 Active tabletIndications: mouth 2 (two) Essential hypertension times daily. STOP NIFEDIPINE ROSUVASTATIN 20 mg TAKE 1 TABLET BY 90 tablet 3 04/06/2019 Active tabletIndications: MOUTH AT BEDTIME, Hypercholesterolemia STOP TAKING ATORVASTATIN moxifloxacin 400 mg Take 1 tablet by 10 tablet 0 05/18/2019 Active tabletIndications: mouth daily. Abdominal pain, unspecified abdominal location, Diverticulitis ondansetron (ZOFRAN ODT) 4 Take 1 tablet by 20 tablet 0 2019 Active mg disintegrating mouth every 8 tabletIndications: (eight) hours as Abdominal pain, needed for Nausea unspecified abdominal and Vomiting location, Diverticulitis (N/V). acetaminophen-codeine Take 1 tablet by 12 tablet 0 05/18/2019 Active 300-30 mg mouth every 4 tabletIndications: (four) hours as Abdominal pain, needed for Pain unspecified abdominal (scale 4-6). location, Diverticulitis acetaminophen-codeine 1/2 - 1 tab Every 15 tablet 0 04/24/201805/18 Discontinued 300-30 mg 4hrs as needed /2019 tabletIndications: Cough for pain or cough requiring narcotic documented as of this encounter (statuses as [...] Sign Reading Time Taken Comments Blood Pressure 165/108 05/18/2019 7:00 PM SANITARY INSPECTOR Pulse 93 05/18/2019 7:00 PM SANITARY INSPECTOR Temperature 36.8 C (98.3 F) 05/18/2019 4:03 PM SANITARY INSPECTOR Respiratory Rate 13 05/18/2019 7:00 PM SANITARY INSPECTOR Oxygen Saturation 97% 05/18/2019 7:00 PM SANITARY INSPECTOR Inhaled Oxygen Concentration - - Weight 94.3 kg (208 lb) 05/18/2019 2:53 PM SANITARY INSPECTOR Height - - Body Mass Index 32.58 05/18/2019 2:13 PM SANITARY INSPECTOR documented in this encounter Discharge Instructions Mary Flor, PAC - 05/18/2019Take medication as prescribed for infection, pain and nausea. Drink plenty of clear liquids. Eat bland food with fiber as tolerated. Follow up with your PCP or a GI specialist in 2-3 days for re-evaluation or return to the ER if you develop worse pain, start having vomiting or feel like you are getting worse overall. AttachmentsThe following attachments cannot be sent through Care Everywhere. Diverticulitis (Pakistani)documented in this encounter Plan of Treatment Date Type Specialty Care Team Description 07/15/2019 Office Visit Pulmonary Disease Alice Rodriguez, [address] [place] [id number] Health Maintenance Due Date Last Done Comments [...] Priority Date/Time Associated Diagnosis Comme nts CT ABDOMEN PELVIS W STAT 05/18/2019 5:27 Abdominal pain, R esults for this CONTRAST PM SANITARY INSPECTOR unspecified procedure are i n abdominal location the resul ts section. CBC WITH DIFFERENTIAL STAT 05/18/2019 3:42 Abdominal pain, Results for this PM SANITARY INSPECTOR unspecified procedure are i n abdominal location the resul ts section. URINALYSIS STAT 05/18/2019 3:42 Abdominal pain, Results for this PM SANITARY INSPECTOR unspecified procedure are i n abdominal location the resul ts section. CBC WITH DIFFERENTIAL Routine 05/18/2019 3:42 Abdominal pain, Results for this PM SANITARY INSPECTOR unspecified procedure are i n abdominal location the resul ts section. COMP. METABOLIC PANEL STAT 05/18/2019 3:42 Abdominal pain, Results for this (37217) PM SANITARY INSPECTOR unspecified procedure are i n abdominal location the resul ts section. LIPASE STAT 05/18/2019 3:42 Abdominal pain, Results for this PM SANITARY INSPECTOR unspecified procedure are i n abdominal location the resul ts section. CONSENT/REFUSAL FOR Routine 05/18/2019 2:40 DIAGNOSIS AND PM SANITARY INSPECTOR TREATMENT documented in this encounter Results CT ABDOMEN PELVIS W CONTRAST (05/18/2019 5:27 PM SANITARY INSPECTOR) Specimen Impressions Performed At PACS/VR/DOSE Severe left hemicolon diverticulitis with mild diverti culitis seen at the hepatic flexure. No abscess or perforati on. Preliminary Report Dictated by Resident: Wale Harley I, Arnoldo Nunez MD., have reviewed this study and agree with the above report. Narrative Performed At EXAM: CT ABDOMEN AND PELVIS WITH CONTRAS T PACS/VR/DOSE HISTORY: Abd pain, acute, generalized COMPARISON: CT dated 08/05/2017 DOSE: Up-to-date CT equipment and radiation dose reduc tion techniques were employed. DLP: 489 mGy-cm TECHNIQUE AND FINDINGS: Contiguous axial imaging from the level of the lung bases through the pubic symphysis was pe rformed after the uncomplicated administration of intravenous Omnipaque contrast. Coronal and sagittal reconstructions were obtained. FINDINGS: LOWER THORAX: Left lower lobe subsegmental atelectasis . Mild cardiomegaly. LIVER: No focal hepatic lesions. No bi liary ductal dilation. GALLBLADDER AND BILIARY TREE: No biliary ductal dilati on. No gallbladder wall thickening. SPLEEN: No splenomegaly. A hyperdense lesion measuring 9 mm in the inferior aspect of the spleen is noted (2:39), possibly a flash filling hemangioma.. PANCREAS: No ductal dilation or masses. ADRENAL GLANDS: No adrenal nodules. KIDNEYS: No hydronephrosis, stones, or m asses. Subcentimeter left interpolar exophytic hypodensity is statistically like ly a simple cyst, but too small to characterize. PERITONEUM AND RETROPERITONEUM: No free air or fluid. LYMPH NODES: No lymphadenopathy. GI TRACT: No dilation. Diverticulosis. A n inflamed diverticulum the left midabdomen is seen with a large stretch of left descending colon wall thickening and marked pericolonic strand ing noted. No abscess or perforation identified. Moderate changes are seen at the hepatic flexure where a small inflamed diverticulum is noted (2:69). T he appendix is normal PELVIS/BLADDER: Calcifications are seen throughout the ovaries bilaterally. VESSELS: Unremarkable. BONES AND SOFT TISSUES: Mild S-shaped curvature of the thoracolumbar spine is noted. No suspicious lytic or sclerot ic bony lesions. Procedure Note [facility], Radiant Results Inft User - 2019 7:58 PM SANITARY INSPECTOR EXAM: CT ABDOMEN AND PELVIS WITH CONTRAST HISTORY: Abd pain, acute, generalized COMPARISON: CT dated 08/05/2017 DOSE: Up-to-date CT equipment and radiat ion dose reduction techniques were employed. DLP: 489 mGy-cm TECHNIQUE AND FINDINGS: Contiguous axial imaging from the level of the lung bases through the pubic symphysis was pe rformed after the uncomplicated administration of intravenous Omnipaque contrast. Coronal and sagittal reconstructions were obtained. FINDINGS: LOWER THORAX: Left lower lobe subsegment al atelectasis. Mild cardiomegaly. LIVER: No focal hepatic lesions. No pastor iary ductal dilation. GALLBLADDER AND BILIARY TREE: No biliary ductal dilation. No gallbladder wall thickening. SPLEEN: No splenomegaly. A hyperdense le isha measuring 9 mm in the inferior aspect of the spleen is noted (2:39), po ssibly a flash filling hemangioma.. PANCREAS: No ductal dilation or masses. ADRENAL GLANDS: No adrenal nodules. KIDNEYS: No hydronephrosis, stones, or m asses. Subcentimeter left interpolar exophytic hypodensity is stat istically likely a simple cyst, but too small to characterize. PERITONEUM AND RETROPERITONEUM: No free air or fluid. LYMPH NODES: No lymphadenopathy. GI TRACT: No dilation. Diverticulosis. A n inflamed diverticulum the left midabdomen is seen with a large stretch of left descending colon wall thickening and marked pericolonic strand ing noted. No abscess or perforation identified. Moderate changes are seen at the hepatic flexure where a small inflamed diverticulum is n oted (2:69). The appendix is normal PELVIS/BLADDER: Calcifications are seen throughout the ovaries bilaterally. VESSELS: Unremarkable. BONES AND SOFT TISSUES: Mild S-shaped cu rvature of the thoracolumbar spine is noted. No suspicious lytic or sclerot ic bony lesions. IMPRESSION Severe left hemicolon diverticulitis wit h mild diverticulitis seen at the hepatic flexure. No abscess or perforati on. Preliminary Report Dictated by Resident: Wale Harley I, Arnoldo Nunez MD., have r eviewed this study and agree with the above report. Performing Organization Address City/State/Zipcode Phone Number PACS/VR/DOSE CBC WITH DIFFERENTIAL (05/18/2019 3:42 PM SANITARY INSPECTOR) Pathologist Sig nature WBC 12.59 (H) 4.30 - 11.10 [facility] 10*3/L [facility] RBC 4.60 3.93 - 5.25 [facility] 10*6/L [facility] HGB 10.4 (L) 11.6 - 15.0 [facility] g/dL [facility] HCT 35.6 (L) 35.7 - 45.2 % [facility] MCV 77.4 (L) 80.6 - 95.5 fL [facility] MCH 22.6 (L) 25.9 - 32.8 pg [facility] MCHC 29.2 (L) 31.6 - 35.1 [facility] g/dL [facility] RDW-SD 43.7 39.0 - 49.9 fL [facility] RDW-CV 15.6 (H) 12.0 - 15.5 % [facility] PLT 330 166 - 358 [facility] 10*3/L [facility] MPV 10.6 9.5 - 12.9 fL [facility] NRBC/100 WBC 0.0 0.0 - 10.0 /100 [facility] WBCs [facility] NRBC x10^3 <0.01 10*3/L [facility] GRAN MAT (NEUT) % 68.0 % [facility] IMM GRAN % 0.50 % [facility] LYMPH % 22.7 % [facility] MONO % 7.1 % [facility] EOS % 1.5 % [facility] BASO % 0.2 % [facility] GRAN MAT x10^3(ANC) 8.56 (H) 1.88 - 7.09 [facility] 10*3/uL [facility] IMM GRAN x10^3 0.06 0.00 - 0.06 [facility] 10*3/uL [facility] LYMPH x10^3 2.86 1.32 - 3.29 [facility] 10*3/uL [facility] MONO x10^3 0.89 0.33 - 0.92 [facility] 10*3/uL [facility] EOS x10^3 0.19 0.03 - 0.39 [facility] 10*3/uL [facility] BASO x10^3 0.03 0.01 - 0.07 [facility] 10*3/uL [facility] Specimen Blood - ARM, LEFT Performing Organization Address City/State/Zipcode Phone Number [facility] CLIA: [id number], [address] [place], [place] [address] Urinalysis (05/18/2019 3:42 PM SANITARY INSPECTOR) Pathologist Sig nature APPEARANCE Clear Clear [facility] COLOR Yellow Yellow [facility] PH 5.0 4.8 - 8.0 [facility] SP GRAVITY 1.014 1.003 - 1.030 [facility] GLU U QUAL Normal Normal [facility] BLOOD Negative Negative [facility] KETONES Negative Negative [facility] PROTEIN Negative Negative [facility] UROBILIN Normal Normal [facility] BILIRUBIN Negative Negative [facility] NITRITE Negative Negative [facility] LEUK DANNA Negative Negative [facility] RBC/HPF 2 0 - 3 HPF [facility] WBC/HPF 0 0 - 5 HPF [facility] BACTERIA Negative Negative [facility] MUCOUS Slight (A) Negative LPF [facility] SPERM 1 <=1 HPF [facility] HYAL CAST 1 <=2 LPF [facility] Specimen Urine - URINE, CLEAN CATCH Performing Organization Address City[facility] Phone Number [facility] CLIA: [id number], [address] [place] [address] Lipase, Serum (05/18/2019 3:42 PM SANITARY INSPECTOR) Pathologist Sig nature LIPASE 184 0 - 220 U/L [facility] Specimen Blood - ARM, LEFT Performing Organization Address [facility] Phone Number [facility] CLIA: [id number], [address] [place] [address] Complete Metabolic Panel (05/18/2019 3:42 PM SANITARY INSPECTOR) Pathologist Sig nature NA 140 135 - 145 mmol/L [facility] K 3.9 3.5 - 5.0 mmol/L [facility] CL 101 98 - 108 mmol/L [facility] CO2 TOTAL 29 23 - 31 mmol/L [facility] AGAP 10 2 - 16 [facility] BUN 13 7 - 23 mg/dL [facility] GLUCOSE 93 70 - 110 mg/dL [facility] CREATININE 0.94 0.50 - 1.04 [facility] mg/dL [facility] TOTAL BILI 0.2 0.1 - 1.1 mg/dL [facility] CALCIUM 9.5 8.6 - 10.6 mg/dL [facility] T PROTEIN 7.4 6.3 - 8.2 g/dL [facility] ALBUMIN 4.2 3.5 - 5.0 g/dL [facility] ALK PHOS 80 34 - 122 U/L [facility] ALTv 15 5 - 35 U/L [facility] AST(SGOT) 18 13 - 40 U/L [facility] eGFR Calculation 60.0 mL/min/1.73m2 [facility] (Non-) [facility] LAB[facility] Y eGFR Calculation 72.7 mL/min/1.73m2 [facility] () [facility] Specimen Blood - ARM, LEFT Narrative Performed At Association of Glomerular Filtration Rate (GFR) [facility] and Staging of Kidney Disease* [...] tests). Performing Organization Address City/State/Zipcode Phone Number [facility] CLIA: [id number], [address] [place], [place] [address] documented in this encounter Visit Diagnoses Diagnosis Diverticulitis - Primary Diverticulitis of colon (without mention of hemorrhage) Abdominal pain, unspecified abdominal lo cation documented in this encounter Administered Medications Medication Order MAR Action Action Date Dose Rate Site iohexol (OMNIPAQUE 350 BULK-150 Given 05/18/2019 5:30 PM SANITARY INSPECTOR 12 0 mL mL) injection 120 mL 120 mL, Intravenous, ONCE, 1 dose, [place] 05/18/19 at 1730, Routine morpHINE injection 4 mg Given 05/18/2019 4:29 PM SANITARY INSPECTOR 4 mg 4 mg, Slow IV Push, ONCE, 1 dose, 05/18/19 at 1730, STAT ondansetron (ZOFRAN (PF)) injection 4 mg Given 05/18/2019 4:28 PM SANITARY INSPECTOR 4 mg 4 mg, Slow IV Push, ONCE, 1 dose, 05/18/19 at 1730, DEANGELO documented in this encounter (Work) documented as of this encounter"
--- OUTSIDE RECORDS SUMMARY | 2019-09-01 20:05 | XMS REPORT | Summary of Care ---
:1955 Author Organization [facility] Address [address] [place] [id number] Care Team Providers Name Role Phone Isis Neely MD Primary Care Provider Reason for Visit Reason Comments Cough Congestion Hypertension Encounter Details Date Type Department Care Team Description 06/11/2019 Office Visit [facility] Family Rosalina Neely hypertension (Primary Dx); Medicine - Anand Marinelli MD Chronic idiopathic constipation; [facility] [address] [place] [address] Medication refill; [place], [place] Acute URI; [id number] Acute bacterial bronchitis; [phone] Acute allergic rhinitis Allergies Active Allergy Reactions Severity Noted Date Comments Amlodipine Swelling 03/28/2019 Hydromorphone (Bulk) Hallucinations 02/02/2018 Metronidazole Hcl Swelling 06/02/2015 Lisinopril Swelling, Cough 09/08/2017 Losartan Swelling 03/31/2018 Nifedipine Swelling 03/28/2019 Penicillins Hives 06/02/2015 documented as of this encounter (statuses as of 06/11/2019) Medications Medication Sig Dispensed Refills Start End Status Date Date vitamin B-12 (VITAMIN Take 1 tablet 90 tablet 1 06/04/19 Active B-12) 500 mcg tablet by mouth daily. 18 vitamin B-6 (VITAMIN Take 1 tablet 90 tablet 1 06/04/19 Active B-6) 100 mg tablet by mouth daily. 18 Blood-Glucose Meter Use as 1 Kit 0 10/01/19 Active (ONETOUCH VERIO IQ directed, 18 METER) Kit DX:E11.9 albuterol 90 2 puffs with 1 Inhaler 1 04/24/19 Acti ve mcg/actuation spacer 4 times 19 inhalerIndications: a day for at Bronchospasm least 7 days inhalational spacing May substitute 1 Each 0 04/24/19 Active deviceIndications: other spacing 19 Bronchospasm device metFORMIN 1,000 mg Take 1 tablet 180 [...] MOUTH ONCE 19 tabletIndications: Iron DAILY deficiency metoprolol succinate XL Take 1 tablet 90 tablet 1 10/09/19 Active 50 mg 24 hr by mouth daily. 19 tabletIndications: Essential hypertension omeprazole 40 mg 0 09/13/19 Act jake capsule 19 mesalamine 1.2 gram EC 1 08/06/19 Active tablet 19 gabapentin 100 mg Take 1 capsule 90 capsule 11/11/19 Active capsuleIndications: by mouth at 19 [...] before unspecified whether meals. terminologist insulin use traMADol (ULTRAM) 50 mg Take 1 tablet 20 tablet 0 12/31/19 Active tabletIndications: by mouth every 19 Chest wall pain, 6 (six) hours Musculoskeletal pain as needed for Pain (scale 7-10). aspirin 81 mg EC Take 1 tablet 100 tablet 3 01/14/20 Active tabletIndications: by mouth daily. 19 Nonobstructive Take with food. 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 0 Active ORAL) albuterol 2.5 mg /3 mL Inhale 3 mL 120 Vial 5 02/05/20 Active (0.083 %) nebulizer every 4 (four) 19 solutionIndications: hours as needed Chronic obstructive for Wheezing or pulmonary disease, Shortness of unspecified COPD type Breath. Via nebulizer albuterol 90 Inhale 2 Puffs 8.5 g 5 02/05/20 Ac tive mcg/actuation every 6 (six) 19 inhalerIndications: hours as needed Hypoxia for Wheezing or Shortness of Breath. codeine-guaifenesin Take 5-10 mL by 120 mL 0 02/05/20 Active 10-100 mg/5 mL mouth every 4 19 solutionIndications: (four) hours as Hypoxia needed for Cough. MAGNESIUM OXIDE 400 mg TAKE 2 TABLETS 240 tablet 5 02/19/20 Active (241.3 mg magnesium) BY MOUTH 4 19 tabletIndications: TIMES DAILY Hypomagnesemia furosemide 20 mg Take 1 tablet 36 tablet 1 03/05/20 Active tabletIndications: by mouth every 19 Hypoxia, Chest pain, Friday, unspecified type Friday and Friday. ROSUVASTATIN 20 mg TAKE 1 TABLET 90 tablet 3 04/06/20 Active tabletIndications: BY MOUTH AT 19 Hypercholesterolemia BEDTIME, STOP TAKING ATORVASTATIN acetaminophen-codeine Take 1 tablet 12 tablet 0 05/18/19 Active 300-30 mg by mouth every 20 tabletIndications: 4 (four) hours Abdominal pain, as needed for unspecified abdominal Pain (scale location, 4-6). Diverticulitis dicyclomine 20 mg Take 1 tablet 20 tablet 0 05/20/19 Active tabletIndications: by mouth every 20 Generalized abdominal 6 (six) hours pain as needed for Abdominal pain. NIFEdipine XL 60 mg 24 Take 1 tablet 90 tablet 1 06/11/19 Active hr tabletIndications: by mouth daily. 20 Essential hypertension linaCLOtide (LINZESS) Take 1 capsule 90 capsule 3 06/11/19 Active 290 mcg CapIndications: by mouth daily. 20 Chronic idiopathic constipation coenzyme Q10 (COQ-10) Take 1 capsule 90 capsule 3 06/11/19 Active 100 mg by mouth daily. 20 softgelIndications: Medication refill azithromycin Take 500 mg PO 6 tablet 0 06/11/19 Ac tive (ZITHROMAX) 250 mg day 1, then 250 20 tabletIndications: mg days 2 to 5. Acute URI, Acute bacterial bronchitis fluticasone propionate Use 2 Sprays in 16 g 0 06/11/19 Active 50 mcg/actuation nasal each nostril 20 sprayIndications: Acute daily. URI, Acute allergic rhinitis, Acute bacterial bronchitis benzonatate 200 mg Take 1 capsule 30 capsule 0 06/11/19 Active capsuleIndications: by mouth 3 20 Acute URI, Acute (three) times bacterial bronchitis, daily as needed Acute allergic rhinitis for Cough. coenzyme Q10 (COQ-10) Take 1 capsule 0 11/11/19/ Discontinued 100 mg softgel by mouth daily. 2019 (Reorder) hydrALAZINE 50 mg Take 1 tablet 180 tablet 1 03/19/2006/11/ Discontinued tabletIndications: by mouth 06 02 2019 (Patient Essential hypertension (two) times Preference) daily. STOP NIFEDIPINE moxifloxacin 400 mg Take 1 tablet 10 tablet 0 02/04/20 02/28/ Discontinued tabletIndications: by mouth daily. 2019 (Therapy Abdominal pain, comp leted) unspecified abdominal location, Diverticulitis ondansetron (ZOFRAN Take 1 tablet 20 tablet 0 05/18/19 ODT) 4 mg by mouth every 2019 (Ther apy disintegrating 8 (eight) hours completed) tabletIndications: as needed for Abdominal pain, Nausea and unspecified abdominal Vomiting (N/V). location, Diverticulitis documented as of this encounter (statuses as of 06/11/2019) Active Problems Problem Noted Date Diastolic dysfunction [...] as of this encounter (statuses as of 06/11/2019) Resolved Problems Problem Noted Date Resolved Date Chest pain 01/17/2018 11/12/2018 Immunization counseling 01/23/2017 11/12/2018 Temporal headache 01/16/2017 11/12/[address] scan 12/06/2016 11/12/2018 documented as of this encounter (statuses as of 06/11/2019) Immunizations Name Administration Dates Next Due Influenza [...] Sign Reading Time Taken Comments Blood Pressure 123/81 06/11/2019 11:20 AM APPRENTICE ELECTRICIAN Pulse 93 06/11/2019 11:20 AM APPRENTICE ELECTRICIAN Temperature 36.3 C (97.4 F) 06/11/2019 11:20 AM APPRENTICE ELECTRICIAN Respiratory Rate - - Oxygen Saturation - - Inhaled Oxygen Concentration - - Weight 94.8 kg (209 lb) 06/11/2019 11:20 AM APPRENTICE ELECTRICIAN Height 165.1 cm (5' 5") 06/11/2019 11:20 AM APPRENTICE ELECTRICIAN Body Mass Index 34.78 06/11/2019 11:20 AM APPRENTICE ELECTRICIAN documented in this encounter Patient Instructions Patient InstructionsCoRosalina rocha MD - 06/11/2019 11:15 AM APPRENTICE ELECTRICIAN Controlling High Blood Pressure High blood pressure (hypertension) is often called the silent killer. This is because many people who have it, dont know it. It can be very dangerous High blood pressure can raise your risk of heartattack, stroke, heart disease, and heart failure. Controlling your blood pressure can decrease your risk of these problems. It's important to know the appropriate blood pressure range and remember to check your blood pressure regularly. Doing so can save your life. Blood pressure measurements are given as 2 numbers. Systolic blood pressure is the upper number. This is the pressure when the heart contracts. Diastolic blood pressure is the lower number. This is thepressure when the heart relaxes between beats. Blood pressure is categorized as normal, elevated, or stage 1 or stage 2 high blood pressure: Normal blood pressure is systolic of less than 120 and diastolic of less than 80 (120/80) Elevated blood pressure is systolic of 120 to 129 and diastolic less than 80 Stage 1 high blood pressure is systolic is 130 to 139 or diastolic between 80 to 89 Stage 2 high blood pressure is when systolic is 140 or higher or the diastolic is 90 or higher A heart-healthy lifestyle can help you control your blood pressure without medicines. Here are some things you can do to pursue a heart-healthy lifestyle: Choose heart-healthy foods Select low-salt, low-fat foods. Limit sodium intake to 2,400 mg per day or the amount suggested by your healthcare provider. Limit canned, dried, cured, packaged, and fast foods. These can contain a lot of salt. Eat 8 to 10 servings of fruits and vegetables every day. Choose lean meats, fish, or chicken. Eat whole-grain pasta, brown rice, and beans. Eat 2 to 3 servings of low-fat or fat-free dairy products. Ask your doctor about the DASH eating plan. This plan helps reduce blood pressure. When you go to a restaurant, ask that your meal be prepared with no added salt. Stay at a healthy weight Ask your healthcare provider how many calories to eat a day. Then stick to that number. Ask your healthcare provider what weight range is healthiest for you. If you are overweight, a weight loss of only 3% to 5% of your body weightcan help lower blood pressure. Generally, a good weight loss goal is to lose 10% of your body weight in a year. Limit snacks and sweets. Get regular exercise. Get up and get active Find activities you enjoy that can be done alone or with friends or family. Such activities mightinclude bicycling, dancing, walking, or jogging. Park farther away from building entrances to walk more. Use stairs instead of the elevator. When you can, walk or bike instead of driving. Winters leaves, garden, or do household repairs. Be active at a moderate to vigorous level of physical activity for at least 40 minutes for a minimum of 3 to 4 days a week. Manage stress Make time to relax and enjoy life. Find time to laugh. Communicate your concerns with your loved ones and your healthcare provider. Visit with family and friends, and keep up with hobbies. Limit alcohol and quit smoking Men should have no more than 2 drinks per day. Women should have no more than 1 drink per day. Talk with your healthcare provider about quitting smoking. Smoking significantly increases your risk for heart disease and stroke. Ask your healthcare provider about community smoking cessation programs and other options. Medicines If lifestyle changes arent enough, your healthcare provider may prescribe high blood pressure medicine. Take all medicines as prescribed. If you have any questions about your medicines, ask your healthcare provider before stopping or changing them. June [employer] last reviewed this educational content on 09/12/201819995417-5990 [employer]. [address] [place] [address], [place] [address]. All rights reserved. This information is not intended as a substitute for professional medical care. Always follow your healthcare professional's instructions. ENTICE ELECTRICIAN documented in this encounter Progress Notes Rosalina Neely MD - 06/11/2019 11:15 AM CST Cc: Chief Complaint Patient presents with Cough Congestion Hypertension HPI Amy Montalvo is a 63 year old female who presents for HTN follow-up and URI symptoms. She also requests refills of Linzess for chronic constipation. HTN follow-up Medication compliance: She stopped taking hydralazine and furosemide due to ineffectiveness and shestarted taking nifedipine 60mg daily that she had been on previously. It was stopped due to edema but she says it has not been causing swelling as of yet. Dietary compliance: Poor. Exercise frequency: Not active. Blood pressure readings: "High" without specific readings but she hasn't been monitoring her bp since she restarted nifedipine because she felt that it had gone down. Associated symptoms: Denies cp or SOB. Cardiovascular screening (ex. EKG, stress test) in the past 3 years?: Yes. URI Presenting symptoms: congestion, cough, fatigue and rhinorrhea Presenting symptoms: no fever Severity: Moderate Onset quality: Sudden Duration: 1 week Timing: Constant Progression: Worsening Chronicity: New Relieved by: Nothing Worsened by: Nothing Ineffective treatments: Cough syrup. Associated symptoms: myalgias Associated symptoms: no arthralgias, no headaches, no neck pain, no sinus pain, no sneezing, no swollen glands and no wheezing Risk factors: chronic cardiac disease, chronic respiratory disease, diabetes mellitus and sick contacts Risk factors: no recent travel Allergies Amy is allergic to amlodipine; dilaudid [hydromorphone (bulk)]; flagyl [metronidazole hcl]; lisinopril; losartan; nifedipine; and pcn [penicillins]. Medications Outpatient Medications Prior to Visit Medication Sig Dispense Refill furosemide 20 mg tablet Take 1 tablet by mouth every Friday, Friday and Friday. 36 tablet 1 dicyclomine 20 mg tablet Take 1 tablet by mouth every 6 (six) hours as needed for Abdominal pain. 20 tablet 0 acetaminophen-codeine 300-30 mg tablet Take 1 tablet by mouth every 4 (four) hours as needed forPain (scale 4-6). 12 tablet 0 moxifloxacin 400 mg tablet Take 1 tablet by mouth daily. 10 tablet 0 ondansetron (ZOFRAN ODT) 4 mg disintegrating tablet Take 1 tablet by mouth every 8 (eight) hoursas needed for Nausea and Vomiting (N/V). 20 tablet 0 ROSUVASTATIN 20 mg tablet TAKE 1 TABLET BY MOUTH AT BEDTIME, STOP TAKING ATORVASTATIN 90 tablet 3 hydrALAZINE 50 mg tablet Take 1 tablet by mouth 2 (two) times daily. STOP NIFEDIPINE 180 tablet 1 MAGNESIUM OXIDE 400 mg (241.3 [...] times daily with meals. 180 tablet 3 albuterol 90 mcg/actuation inhaler 2 puffs with spacer 4 times a day for at least 7 days 1 Inhaler 1 inhalational spacing device May substitute other spacing device 1 Each 0 coenzyme Q10 (COQ-10) 100 mg softgel Take 1 capsule by mouth daily. 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 Negative for fever. HENT: Positive for congestion and rhinorrhea. Negative for sinus pain and sneezing. Eyes: Negative. Respiratory: Positive for cough. Negative for wheezing. Breasts: Positive for pain. She has an appointment with her [employer] for a breast lump Cardiovascular: Negative. Gastrointestinal: Negative. Genitourinary: Negative. Musculoskeletal: Positive for myalgias. Negative for arthralgias and neck pain. Skin: Negative. Neurological: Negative. Negative for headaches. Psychiatric/Behavioral: Negative. Endocrine: Endocrine negative Vital Signs BP 123/81 | Pulse 93 | Temp 36.3 C (97.4 F) (Tympanic) | Ht 5' 5" (1.651 m) | Wt 209 lb (94.8 kg) | BMI 34.78 kg/m Physical Exam Constitutional: She is oriented to person, place, and time. She appears well- developed and well-nourished. No distress. Coughing HENT: Head: Normocephalic. Right Ear: Tympanic membrane and ear canal normal. Left Ear: Tympanic membrane and ear canal normal. Nose: Mucosal edema and rhinorrhea present. Right sinus exhibits maxillary sinus tenderness. Right sinus exhibits no frontal sinus tenderness. Left sinus exhibits maxillary sinus tenderness. Left sinusexhibits no frontal sinus tenderness. Mouth/Throat: Mucous membranes are normal. Posterior oropharyngeal erythema present. No oropharyngeal exudate or posterior oropharyngeal edema. Eyes: No scleral icterus. Neck: Neck supple. No thyromegaly present. Cardiovascular: Normal rate, regular rhythm, normal heart sounds and intact distal pulses. Exam reveals no gallop and no friction rub. No murmur heard. Pulmonary/Chest: Effort normal and breath sounds normal. No respiratory distress. She has no wheezes. She has no rales. Abdominal: Soft. Bowel sounds are normal. She [...] Diagnoses and all orders for this visit: Essential hypertension Bp is now at goal. Continue current medication(s) including the nifedipine ER but she should restart furosemide TIW or else the CCB will likely eventually make her edema rebound. Low sodium diet/DASHdiet. Exercise regularly. The patient was instructed to self monitor her blood pressure once dailyvarying the times when it is checked and to bring the record of readings to each office visit. The patient should follow-up sooner if the blood pressure is trending >/=130/80. - NIFEdipine XL 60 mg 24 hr tablet; Take 1 tablet by mouth daily. Acute URI, Acute bacterial bronchitis, Acute allergic rhinitis Will cover the patient with an antibiotic given the severity of the patient's symptoms, the failure of symptomatic txs, along with the exam findings. Other medications as noted. Symptomatic therapy suggested: Increase intake of non- caffeinated fluids, gargle PRN sore throat, use mist at bedside PRNcongestion, apply facial warm packs PRN sinus pain, Mucinex max strength 1200mg tabs q12hr PRN congestion, and may use acetaminophen prn. Return for re-evaluation if the symptoms worsen or persist. - azithromycin (ZITHROMAX) 250 mg tablet; Take 500 mg PO day 1, then 250 mg days 2 to 5. - fluticasone propionate 50 mcg/actuation nasal spray; Use 2 Sprays in each nostril daily. - benzonatate 200 mg capsule; Take 1 capsule by mouth 3 (three) times daily as needed for Cough. Chronic idiopathic constipation Stable. Continue current pharmacotherapy. The patient understands she should follow-up sooner if there is any rebound in her constipation symptoms. - linaCLOtide (LINZESS) 290 mcg Cap; Take 1 capsule by mouth daily. Plan of care, desired health behaviors, goals, [...] a future visit. If applicable, the [facility] database was accessed to review any controlled substance prescription claims data. If the patient is taking prescribed medications, the [employer] prescription claims data in [employer] was reviewed to assess patient compliance with the medication treatment plan. Follow-up: Return in about 3 weeks (around 07/02/2019) for fasting diabetic check. Follow-up soonerif any problems or concerns. Scribe Attestation I, Pearl Garland , am scribing for, and in the presence of, Rosalina Neely MD who performed the services described here-in. Pearl Garland, June 11, 2019, 10:49 AM Physician Attestation I, Rosalina Neely MD, personally performed the services described in this documentation , as scribed by, Pearl Garland in my presence and it is both accurate and complete. Rosalina Neely MD June 11, 2019, 10:49 AM ENTICE ELECTRICIAN documented in this encounter Plan of Treatment Date Type Specialty Care Team Description 07/09/2019 Office Visit Family Medicine Monica Neely MD [address] [place] [address] [phone] Health Maintenance Due Date Last Done [...] URINE MICROALBUMIN 11/27/2019 11/26/2018, 02/12/2017 CREATININE (SERUM) 05/27/2020 05/27/2019, 05/20/2019, 05/18/2019, Additional history exists COLONOSCOPY 02/25/2027 02/25/2017 LUNG CANCER SCREEN: Recommended Discontinued 02/03/2018, 06/2017, for age 55-80 with 30 + pack year 11/14/2016 history PNEUMOCOCCAL 0-64 YEARS COMBINED Completed 02/07/2018 SERIES HEPATITIS C (HCV) SCREEN Completed 11/20/2018 INFLUENZA VACCINE Completed 02/12/2019, 02/07/2018 documented as of this encounter Results Not on filedocumented in this encounter Visit Diagnoses Diagnosis Essential hypertension - Primary Unspecified essential hypertension Chronic idiopathic constipation Unspecified constipation Medication refill Issue of repeat prescriptions Acute URI Acute upper respiratory infections of un specified site Acute bacterial bronchitis Acute bronchitis Acute allergic rhinitis documented in this encounter [phone] [id number] (Work) documented as of this encounter
--- OUTSIDE RECORDS SUMMARY | 2019-09-01 20:05 | XMS REPORT | Summary of Care ---
:1955 Author Organization [facility] 3SP Group Address [address] [place] [address] Care Team Providers Name Role Phone Isis Neely MD Primary Care Provider Reason for Visit Reason Comments Cough Congestion Hypertension Encounter Details Date Type Department Care Team Description 06/11/2019 Office Visit [facility] Family Rosalina Neely hypertension (Primary Dx); Medicine - Anand Marinelli MD Chronic idiopathic constipation; [facility] [address] [place] [address] Medication refill; [place], [place] Acute URI; [id number] Acute bacterial bronchitis; [phone] Acute allergic rhinitis Allergies Active Allergy Reactions [...] with hyperglycemia, qPM with dinner unspecified whether long filler cigar roller machine insulin use repaglinide 0.5 mg Take 1 tablet 270 tablet 1 12/03/19 Active tabletIndications: Type by mouth 3 19 2 diabetes mellitus (three) times with hyperglycemia, daily before unspecified whether meals. long filler cigar roller machine insulin use traMADol (ULTRAM) 50 mg Take [...] Comments Blood Pressure 123/81 06/11/2019 11:20 AM MINE ENVIRONMENTAL ENGINEER Pulse 93 06/11/2019 11:20 AM MINE ENVIRONMENTAL ENGINEER Temperature 36.3 C (97.4 F) 06/11/2019 11:20 AM MINE ENVIRONMENTAL ENGINEER Respiratory Rate - - Oxygen Saturation - - Inhaled Oxygen Concentration - - Weight 94.8 kg (209 lb) 06/11/2019 11:20 AM MINE ENVIRONMENTAL ENGINEER Height 165.1 cm (5' 5") 06/11/2019 11:20 AM MINE ENVIRONMENTAL ENGINEER Body Mass Index 34.78 06/11/2019 11:20 AM MINE ENVIRONMENTAL ENGINEER documented in this encounter Patient Instructions Patient InstructionsCoRosalina rocha MD - 06/11/2019 11:15 AM MINE ENVIRONMENTAL ENGINEER Controlling High Blood Pressure High blood pressure [...] can, walk or bike instead of driving. [place] leaves, garden, or do household repairs. Be [...] healthcare provider before stopping or changing them. Slide last reviewed this educational content on 09/12/[id number] [employer]. [address] [place] [address], [place] [address]. All rights reserved. This information is not intended as a substitute for professional medical care. Always follow your healthcare professional's instructions. 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 Negative for fever. HENT: Positive for congestion and rhinorrhea. Negative for sinus pain and sneezing. Eyes: Negative. Respiratory: Positive for cough. Negative for wheezing. Breasts: Positive for pain. She has an appointment with her INTERNAL AUDIT SENIOR MANAGER for a breast lump Cardiovascular: Negative. Gastrointestinal: [...] at a future visit. If applicable, the [facility] database was accessed to review any controlled substance prescription claims data. If the patient is taking prescribed medications, the [employer] prescription claims data in [employer] was reviewed to assess patient compliance with the medication treatment plan. Follow-up: Return in about 3 weeks (around 07/02/2019) for fasting diabetic check. Follow-up soonerif any problems or concerns. Scribe Attestation I, Pearl Garland , am scribing for, and in the presence of, Rosalina Neely MD who performed the services described here-in. Peral Garland, June 11, 2019, 10:49 AM Physician Attestation I, Rosalina Neely MD, personally performed the services described in this documentation , as scribed by, Pearl Garland in my presence and it is both accurate and complete. Rosalina Neely MD June 11, 2019, 10:49 AM ENVIRONMENTAL ENGINEER documented in this encounter Plan of Treatment Date Type Specialty Care Team Description 07/09/2019 Office Visit Family Medicine Monica Neely MD [address] [place] [address] [phone] Health Maintenance Due Date Last Done [...] Acute allergic rhinitis documented in this encounter [phone] (Work) documented as of this encounter
--- OUTSIDE RECORDS SUMMARY | 2019-09-01 20:05 | XMS REPORT | Summary of Care ---
:1955 Author Organization [facility] Address [address] [place] [address] Care Team Providers Name Role Phone Isis Neely MD Primary Care Provider Reason for Referral MRI/CAT Scan (STAT) Status Reason Specialty Diagnoses / Referred By Referred To Procedures Contact Contact New Request Diagnostic Diagnoses Abdominal pain, unspecified abdominal location Juan Daniel Cornelius Radiology Procedures CT ABDOMEN PELVIS WO CONTRAST MD Marilee [address] [address] Reason for Visit Reason Comments Abdominal Pain Auth/Cert Status Reason Specialty Diagnoses / Referred By Referred To Procedures Contact Contact Emergency Medicine [facility]ency Dept [address] [place] [address] [place] [address] Fax: Encounter Details Date Type Department Care Team Description 05/20/2019 Emergency [facility]Emergency Juan Daniel Cornelius S, Abdominal pain, unspecified abdominal location (Primary Dx); Department Generalized abdominal pain; [address] [place] [address] [address] [facility] History [place] [address] [id number] [place], [place] [id number] Allergies Active Allergy Reactions Severity Noted Date [...] as directed, 1 Kit 0 09/30/2017 Active ([facility] Partners[facility]CH VERIO IQ DX:E11.9 METER) Kit coenzyme Q10 [...] po qPM with dinner hyperglycemia, unspecified whether exterminator helper insulin use repaglinide 0.5 mg Take 1 tablet by mouth 270 tablet 1 019 Active tabletIndications: Type 2 3 (three) times daily diabetes mellitus with before meals. hyperglycemia, unspecified whether long-term insulin use traMADol (ULTRAM) 50 mg Take [...] Sign Reading Time Taken Comments Blood Pressure 152/94 05/20/2019 3:00 PM LUMBER CARRIER OPERATOR Pulse 90 05/20/2019 3:00 PM LUMBER CARRIER OPERATOR Temperature 36.6 C (97.8 F) 05/20/2019 11:33 AM LUMBER CARRIER OPERATOR Respiratory Rate 13 05/20/2019 3:00 PM LUMBER CARRIER OPERATOR Oxygen Saturation 98% 05/20/2019 3:00 PM LUMBER CARRIER OPERATOR Inhaled Oxygen Concentration - - Weight 94.3 kg (208 lb) 05/20/2019 11:33 AM LUMBER CARRIER OPERATOR Height - - Body Mass Index 32.58 05/18/2019 2:13 PM LUMBER CARRIER OPERATOR documented in this encounter Discharge Instructions Juan Daniel Kirby MD - 05/20/2019 DIAGNOSIS Diagnoses that have been ruled out: None Diagnoses that are still under consideration: None Final diagnoses: Generalized abdominal pain History of diverticulitis of colon NO LIFE-THREATENING FINDINGS ON TODAY'S EXAM. PROCEDURES IN THE ER TODAY: Orders Placed This Encounter Procedures CT ABDOMEN PELVIS WO CONTRAST Complete Metabolic Panel CBC with Differential Lipase, Serum Urinalysis CBC WITH DIFFERENTIAL O2 Per Protocol MEDICATIONS ADMINISTERED IN THE ER TODAY AND DISCHARGE MEDICATIONS: Orders Placed This Encounter Medications sodium chloride (NS) injection 5 mL FENTanyl PF (SUBLIMAZE (PF)) injection 25 mcg ondansetron (ZOFRAN (PF)) injection 4 mg FOLLOW-UP RECOMMENDATIONS: RECOMMEND FOLLOW-UP WITH YOUR PRIMARY CARE PROVIDER OR DR PEARSON, GASTROENTEROLOGY SPECIALISTIN 2-5 DAYS, ESPECIALLY IF NO IMPROVEMENT IN SYMPTOMS. MAY FOLLOW-UP WITH A PROVIDER OF YOUR CHOICE, SUCH : 1. A PHYSICIAN OF YOUR CHOICE 2. [facility], . LOCATIONS IN [facility] 3. [facility], [address] [place] [address]; [phone] OR, IF YOU WISH TO FOLLOW-UP WITHIN THE [facility], MAY TRY THESE OPTIONS (CLINIC APPOINTMENTS AVAILABLE ON [id number] BASIS): 1. SCHEDULE AN APPOINTMENT ONLINE AT WWW.[facility] 2. OR CALL THE [facility] ACCESS CENTER AT OR 3. OR CALL YOUR [facility] PHYSICIAN'S OFFICE DIRECTLY IF YOU ARE ALREADY AN ESTABLISHED [facility] PATIENT. RETURN TO ER FOR WORSENING OF SYMPTOMS CONTINUE YOUR ANTIBIOTICS FOR THE DIVERTICULITIS AND ZOFRAN FOR NAUSEA PRESCRIBED AttachmentsThe following attachments cannot be sent through Care Everywhere. Abdominal Pain, Adult (Namibian)documented in this encounter Plan of Treatment Date Type Specialty Care Team Description 07/15/2019 Office Visit Pulmonary Disease Alice Rodriguez DO [address] [place] [address] Name Type Priority Associated Diagnoses Order S chedule CT ABDOMEN PELVIS WO IMAGING STAT Abdominal pain, ONCE for 1 Occurrences CONTRAST unspecified abdominal starti ng 05/20/2019 location until 0 Health Maintenance Due Date Last Done Comments [...] Name Priority Date/Time Associated Diagnosis Comme nts URINALYSIS STAT 05/20/2019 12:34 Abdominal pain, Results for this PM LUMBER CARRIER OPERATOR unspecified procedure are i n abdominal location the resul ts section. CBC WITH DIFFERENTIAL STAT 05/20/2019 11:53 Abdominal pain, Results for this AM LUMBER CARRIER OPERATOR unspecified procedure are i n abdominal location the resul ts section. CBC WITH DIFFERENTIAL Routine 05/20/2019 11:53 Abdominal pain, Results for this AM LUMBER CARRIER OPERATOR unspecified procedure are i n abdominal location the resul ts section. COMP. METABOLIC PANEL STAT 05/20/2019 11:53 Abdominal pain, Results for this ([id number]) AM LUMBER CARRIER OPERATOR unspecified procedure are i n abdominal location the resul ts section. LIPASE STAT 05/20/2019 11:53 Abdominal pain, Results for this AM LUMBER CARRIER OPERATOR unspecified procedure are i n abdominal location the resul ts section. CONSENT/REFUSAL FOR Routine 05/20/2019 11:25 DIAGNOSIS AND AM LUMBER CARRIER OPERATOR TREATMENT documented in this encounter Results Urinalysis (05/20/2019 12:34 PM LUMBER CARRIER OPERATOR) APPEARANCE Hazy (A) Clear [facility] COLOR Yellow Yellow [facility] PH 5.0 4.8 - 8.0 [facility] SP GRAVITY 1.027 1.003 - 1.030 [facility] GLU U QUAL Normal Normal [facility] BLOOD NegativeComment: Negative [facility] INTERFERENCE FROM HOSPITAL LABORATORY ASCORBIC ACID MAY CAUSE FALSE NEGATIVE RESULT KETONES Negative Negative [facility] PROTEIN Negative Negative [facility] UROBILIN Normal Normal [facility] BILIRUBIN Negative Negative [facility] NITRITE Negative Negative [facility] LEUK DANNA 25/uL (A) Negative [facility] RBC/HPF 2 0 - 3 HPF [facility] WBC/HPF 5 0 - 5 HPF [facility] BACTERIA Few (A) Negative [facility] MUCOUS Slight (A) Negative LPF [facility] SQ EPITH 6 HPF [facility] HYAL CAST 4 (H) <=2 LPF [facility] Specimen Urine - URINE, CLEAN CATCH Performing Organization Address City/State/Zipcode Phone Number [facility] CLIA: [id number], [address] [place], [place] [address] CBC WITH DIFFERENTIAL (05/20/2019 11:53 AM LUMBER CARRIER OPERATOR) [facility] nature WBC 8.11 4.30 - 11.10 [facility] 10*3/L HOSPITAL [facility] RBC 4.47 3.93 - 5.25 [facility] 10*6/L [facility] HGB 10.2 (L) 11.6 - 15.0 [facility] g/dL [facility] HCT 34.3 (L) 35.7 - 45.2 % [facility] MCV 76.7 (L) 80.6 - 95.5 fL [facility] MCH 22.8 (L) 25.9 - 32.8 pg [facility] MCHC 29.7 (L) 31.6 - 35.1 [facility] g/dL [facility] RDW-SD 43.5 39.0 - 49.9 fL [facility] RDW-CV 15.8 (H) 12.0 - 15.5 % [facility] PLT 346 166 - 358 [facility] 10*3/L [facility] MPV 11.0 9.5 - 12.9 fL [facility] NRBC/100 WBC 0.0 0.0 - 10.0 /100 [facility] WBCs [facility] NRBC x10^3 <0.01 10*3/L [facility] GRAN MAT (NEUT) % 55.4 % [facility] IMM GRAN % 0.50 % [facility] LYMPH % 32.3 % [facility] MONO % 8.1 % [facility] EOS % 3.2 % [facility] BASO % 0.5 % [facility] GRAN MAT x10^3(ANC) 4.49 1.88 - 7.09 [facility] 10*3/uL HOSPITAL [facility] IMM GRAN x10^3 0.04 0.00 - 0.06 [facility] 10*3/uL [facility]ITAL [facility] LYMPH x10^3 2.62 1.32 - 3.29 [facility] 10*3/uL [facility] MONO x10^3 0.66 0.33 - 0.92 [facility] 10*3/uL [facility]ITAL [facility] EOS x10^3 0.26 0.03 - 0.39 [facility] 10*3/uL [facility] BASO x10^3 0.04 0.01 - 0.07 [facility] 10*3/uL [facility] Specimen Blood - VENOUS Performing Organization Address City/[facility]/Zipcode Phone Number [facility] CLIA: [id number], [address] [place] [address] Lipase, Serum (05/20/2019 11:53 AM LUMBER CARRIER OPERATOR) Pathologist Sig nature LIPASE 31 0 - 220 U/L [facility] Specimen Blood - VENOUS Performing Organization Address City/[facility] Cent[facility]ode Phone Number [facility] CLIA: [id number], [address] [place] [address] Complete Metabolic Panel (05/20/2019 11:53 AM LUMBER CARRIER OPERATOR) Pathologist [facility] NA 140 135 - 145 [facility] mmol/L [facility] K 4.8 3.5 - 5.0 [facility] mmol/L [facility] CL 102 98 - 108 mmol/L [facility] CO2 TOTAL 31 23 - 31 mmol/L [facility] AGAP 7 2 - 16 [facility] BUN 18 7 - 23 mg/dL [facility] GLUCOSE 105 70 - 110 mg/dL [facility] CREATININE 0.98 0.50 - 1.04 [facility] mg/dL [facility] TOTAL BILI 0.5 0.1 - 1.1 mg/dL [facility] CALCIUM 9.5 8.6 - 10.6 [facility] mg/dL [facility] T PROTEIN 7.8 6.3 - 8.2 g/dL [facility] ALBUMIN 4.3 3.5 - 5.0 g/dL [facility] ALK PHOS 60 34 - 122 U/L [facility] ALTv 19 5 - 35 U/L [facility] AST(SGOT) 50 (H) 13 - 40 U/L [facility] eGFR Calculation 57.1 mL/min/1.73m2 [facility] (Non-) [facility] LABORATOR Y eGFR Calculation 69.2 mL/min/1.73m2 [facility] () [facility] Specimen Blood - VENOUS Narrative Performed At Association of Glomerular Filtration Rate (GFR) [facility] and Staging of Kidney Disease* [...] Performing Organization Address City/State/Zipcode Phone Number [facility] CLIA: [id number], [address] [place], [place] [address] documented in this encounter Visit Diagnoses Diagnosis Abdominal pain, unspecified abdominal lo cation - Primary Generalized abdominal pain Abdominal pain, generalized History of diverticulitis of colon Personal history of other diseases of di gestive system documented in this encounter Administered Medications Medication Order MAR Action Action Date Dose Rate Site sodium chloride (NS) injection 5 mL 5 mL, Intravenous, PRN, Starting La 05/20 at 1140, Until Discontinued, Routine, IV line flushing documented in this encounter [address] (Home) [place], [place] [phone] (Work) documented as of this encounter"
--- OUTSIDE RECORDS SUMMARY | 2019-09-01 20:06 | XMS REPORT | Summary of Care ---
:1955 Author Organization [facility] Address [address] [place] [address] Care Team Providers Name Role Phone Isis Neely MD Primary Care Provider Reason for Visit Reason Comments Assessment Encounter Details Date Type Department Care Team Description 06/11/2019 Telephone [facility] Family Medicine Rosalina Cherry MD Assessment - [address] [facility] [place] [address] [place] [address] [phone] Allergies Active Allergy Reactions Severity Noted Date Comments Amlodipine Swelling 03/28/2019 Hydromorphone (Bulk) Hallucinations 02/02/2018 Metronidazole Hcl Swelling 06/02/2015 Lisinopril Swelling, Cough 09/08/2017 Losartan Swelling 03/31/2018 Nifedipine Swelling 03/28/2019 Penicillins Hives 06/02/2015 documented as of this encounter (statuses as of 06/11/2019) Medications Medication Sig Dispensed Refills Start End Date Status Date vitamin B-12 (VITAMIN Take 1 tablet by 90 tablet 1 Active B-12) 500 mcg tablet mouth daily. 8 vitamin B-6 (VITAMIN B-6) Take 1 tablet by 90 tablet 1 01 Active 100 mg tablet mouth daily. 8 Blood-Glucose Meter Use as directed, 1 Kit 0 Active (ONETOUCH VERIO IQ METER) DX:E11.9 8 Kit albuterol 90 2 puffs with 1 Inhaler 1 01/11/201 Acti ve mcg/actuation spacer 4 times a 9 inhalerIndications: day for at least Bronchospasm 7 days inhalational spacing May substitute 1 Each 0 Active deviceIndications: other spacing 9 Bronchospasm device metFORMIN 1,000 mg Take 1 [...] MOUTH ONCE DAILY 9 tabletIndications: Iron deficiency metoprolol succinate XL Take 1 tablet by 90 tablet 1 Active 50 mg 24 hr mouth daily. 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 unspecified whether half-way insulin use traMADol (ULTRAM) 50 mg Take 1 tablet by 20 tablet 0 Active tabletIndications: Chest mouth every 6 9 wall pain, (six) hours as Musculoskeletal pain needed for Pain (scale 7-10). aspirin 81 mg EC Take 1 tablet by 100 tablet 3 Active tabletIndications: mouth daily. Take 9 Nonobstructive with food. 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 0 Active albuterol 2.5 mg /3 mL Inhale 3 mL every 120 Vial 5 Active (0.083 %) nebulizer 4 (four) hours as 9 solutionIndications: needed for Chronic obstructive Wheezing or pulmonary disease, Shortness of unspecified COPD type Breath. Via nebulizer albuterol 90 Inhale 2 Puffs 8.5 g 5 Ac tive mcg/actuation every 6 (six) 9 inhalerIndications: hours as needed Hypoxia for Wheezing or Shortness of Breath. codeine-guaifenesin Take 5-10 mL by 120 mL 0 Active 10-100 mg/5 mL mouth every 4 9 solutionIndications: (four) hours as Hypoxia needed for Cough. MAGNESIUM OXIDE 400 mg TAKE 2 TABLETS BY 240 tablet 5 02/19/20 1 Active (241.3 mg magnesium) MOUTH 4 TIMES 9 tabletIndications: DAILY Hypomagnesemia furosemide 20 mg Take 1 tablet by 36 tablet 1 Active tabletIndications: mouth every 9 Hypoxia, Chest pain, Friday, Friday unspecified type and Friday. ROSUVASTATIN 20 mg TAKE 1 TABLET BY 90 tablet 3 Active tabletIndications: MOUTH AT BEDTIME, 9 Hypercholesterolemia STOP TAKING ATORVASTATIN acetaminophen-codeine Take 1 tablet by 12 tablet 0 Active 300-30 mg mouth every 4 0 tabletIndications: (four) hours as Abdominal pain, needed for Pain unspecified abdominal (scale 4-6). location, Diverticulitis dicyclomine 20 mg Take 1 tablet by 20 tablet 0 Active tabletIndications: mouth every 6 0 Generalized abdominal (six) hours as pain needed for Abdominal pain. NIFEdipine XL 60 mg 24 hr Take 1 tablet by 90 tablet 1 06/11/ 02 Active tabletIndications: mouth daily. 0 Essential hypertension linaCLOtide (LINZESS) 290 Take 1 capsule by 90 capsule 3 06/11 Active mcg CapIndications: mouth daily. 0 Chronic idiopathic constipation coenzyme Q10 (COQ-10) 100 Take 1 capsule by 90 capsule 3 06/11 Active mg softgelIndications: mouth daily. 0 Medication refill azithromycin (ZITHROMAX) Take 500 mg PO 6 tablet 0 Active 250 mg tabletIndications: day 1, then 250 0 Acute URI, Acute mg days 2 to 5. bacterial bronchitis fluticasone propionate 50 Use 2 Sprays in 16 g 0 06/11/19 2 Active mcg/actuation nasal each nostril 0 sprayIndications: Acute daily. URI, Acute allergic rhinitis, Acute bacterial bronchitis benzonatate 200 mg Take 1 capsule by 30 capsule 0 Active capsuleIndications: Acute mouth 3 (three) 0 URI, Acute bacterial times daily as bronchitis, Acute needed for Cough. allergic rhinitis documented as of this encounter (statuses as [...] Team Description 07/09/2019 Office Visit Family Medicine Florinda, Wondifu l A, MD [address] [place] [address] [phone] Health Maintenance Due Date Last Done [...] Effective Dates Phone Address Type [employer] [facility] [id number] 2013-Present PPO documented as of this encounter
--- OUTSIDE RECORDS SUMMARY | 2019-09-01 20:07 | XMS REPORT | Summary of Care ---
:1955 Author Organization [facility] [employer] Address [address] [place] [address] Care Team Providers Name Role Phone Isis Neely MD Primary Care Provider Reason for Visit Reason Comments Rx Concern/Question Encounter Details Date Type Department Care Team Description 06/16/2019 Telephone [facility] Family Rosalina Neely R x Concern/Question Medicine - Anand FERRARO [address] [place] [address] [place] [address] [address] [place], [place] [phone] Allergies Active Allergy Reactions Severity Noted Date Comments Amlodipine Swelling 03/28/2019 Hydromorphone (Bulk) Hallucinations 02/02/2018 Metronidazole Hcl Swelling 06/02/2015 Lisinopril Swelling, Cough 09/08/2017 Losartan Swelling 03/31/2018 Nifedipine Swelling 03/28/2019 Penicillins Hives 06/02/2015 documented as of this encounter (statuses as of 06/18/2019) Medications Medication Sig Dispensed Refills Start End [...] po qPM hyperglycemia, with dinner unspecified whether terminal supervisor insulin use repaglinide 0.5 mg Take 1 tablet by 270 tablet 1 Active tabletIndications: 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 unspecified whether senior care insulin use traMADol (ULTRAM) 50 mg Take [...] as of this encounter (statuses as of 06/18/2019) Active Problems Problem Noted Date Diastolic dysfunction [...] as of this encounter (statuses as of 06/18/2019) Resolved Problems Problem Noted Date Resolved Date Chest pain 01/17/2018 11/12/2018 Immunization counseling 01/23/2017 11/12/2018 Temporal headache 01/16/2017 11/12/[address] scan 12/06/2016 11/12/2018 documented as of this encounter (statuses as of 06/18/2019) Immunizations Name Administration Dates Next Due Influenza [...] Visit Family Medicine Monica Neely MD [address] [address] [phone] Health Maintenance Due Date Last Done [...] [facility] [id number] 2013-Present PPO documented as of this encounter
--- OUTSIDE RECORDS SUMMARY | 2019-09-01 20:07 | XMS REPORT | Summary of Care ---
:1955 Author Organization [facility] [employer] Address [address] [place] [address] Care Team Providers Name Role Phone Isis Neely MD Primary Care Provider Reason for Visit Reason Comments Rx Concern/Question Encounter Details Date Type Department Care Team Description 06/14/2019 Telephone [facility] Family Rosalina Neely R x Concern/Question Medicine - Anand FERRARO [address] [place] [address] [place] [address] [address] [place], [place] [phone] Allergies Active Allergy Reactions Severity Noted Date Comments Amlodipine Swelling 03/28/2019 Hydromorphone (Bulk) Hallucinations 02/02/2018 Metronidazole Hcl Swelling 06/02/2015 Lisinopril Swelling, Cough 09/08/2017 Losartan Swelling 03/31/2018 Nifedipine Swelling 03/28/2019 Penicillins Hives 06/02/2015 documented as of this encounter (statuses as of 06/14/2019) Medications Medication Sig Dispensed Refills Start End [...] po qPM hyperglycemia, with dinner unspecified whether [place] terminal supervisor insulin use repaglinide 0.5 mg Take 1 tablet by 270 tablet 1 Active tabletIndications: 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 unspecified whether [facility] insulin use traMADol (ULTRAM) 50 mg Take [...] as of this encounter (statuses as of 06/14/2019) Active Problems Problem Noted Date Diastolic dysfunction [...] as of this encounter (statuses as of 06/14/2019) Resolved Problems Problem Noted Date Resolved Date Chest pain 01/17/2018 11/12/2018 Immunization counseling 01/23/2017 11/12/2018 Temporal headache 01/16/2017 11/12/[address] scan 12/06/2016 11/12/2018 documented as of this encounter (statuses as of 06/14/2019) Immunizations Name Administration Dates Next Due Influenza [...] Visit Family Medicine Monica Neely MD [address] [address] [phone] Health Maintenance Due Date Last Done [...] Effective Dates Phone Address Type [employer] AETNA [facility] [id number] 2013-Present PPO documented as of this encounter
--- OUTSIDE RECORDS SUMMARY | 2019-09-01 20:08 | XMS REPORT | Summary of Care ---
:1955 Author Organization [facility] [employer] Address [address] [place] [address] Care Team Providers Name Role Phone Isis Neely MD Primary Care Provider Reason for Visit Reason Comments Refill Request Encounter Details Date Type Department Care Team Description 06/30/2019 Refill [facility] Family Medicine Rosalina Cherry MD Refill Request - [address] [place] [address] [place] [address] [phone] Allergies Active Allergy Reactions Severity Noted Date Comments Amlodipine Swelling 03/28/2019 Hydromorphone (Bulk) Hallucinations 02/02/2018 Metronidazole Hcl Swelling 06/02/2015 Lisinopril Swelling, Cough 09/08/2017 Losartan Swelling 03/31/2018 Nifedipine Swelling 03/28/2019 Penicillins Hives 06/02/2015 documented as of this encounter (statuses as of 07/01/2019) Medications Medication Sig Dispensed Refills Start End [...] MOUTH ONCE 19 tabletIndications: Iron DAILY deficiency omeprazole 40 mg 0 09/13/19 Act jake [...] with hyperglycemia, qPM with dinner unspecified whether halfway insulin use repaglinide 0.5 mg Take 1 tablet 270 tablet 1 12/03/19 Active tabletIndications: Type by mouth 3 19 2 diabetes mellitus (three) times with hyperglycemia, daily before unspecified whether meals. halfway insulin use traMADol (ULTRAM) 50 mg Take [...] as needed Acute allergic rhinitis for Cough. METOPROLOL SUCCINATE XL Take 1 tablet 90 tablet 0 07/01/19 Active 50 mg 24 hr by mouth once 20 tabletIndications: daily Essential hypertension metoprolol succinate XL Take 1 tablet 90 tablet 1 10/09/19 Discontinued 50 mg 24 hr by mouth daily. 19 020 tabletIndications: Essential hypertension documented as of this encounter (statuses as of 07/01/2019) Active Problems Problem Noted Date Diastolic dysfunction [...] as of this encounter (statuses as of 07/01/2019) Resolved Problems Problem Noted Date Resolved Date Chest pain 01/17/2018 11/12/2018 Immunization counseling 01/23/2017 11/12/2018 Temporal headache 01/16/2017 11/12/[address] scan 12/06/2016 11/12/2018 documented as of this encounter (statuses as of 07/01/2019) Immunizations Name Administration Dates Next Due Influenza [...] Office Visit Family Medicine Monica Neely MD [address] [place] [address] [phone] Health Maintenance Due Date Last Done [...] this encounter Visit Diagnoses Diagnosis Essential hypertension Unspecified essential hypertension documented in this encounter Insurance Payer Benefit Plan / Group Subscriber ID Effective Dates Phone Address Type AETNA AETNA [facility] [id number] 2013-Present PPO documented as of this encounter
--- OUTSIDE RECORDS SUMMARY | 2019-09-01 20:08 | XMS REPORT | Summary of Care ---
:1955 Author Organization [facility] Address [address] [place] [address] Care Team Providers Name Role Phone Isis Neely MD Primary Care Provider Encounter Details Date Type Department Care Team Description 06/09/2019 Orders Only [facility] Doctor Unassigned, No [address] [facility] [place] [address] [address] [place] [address] Allergies Active Allergy Reactions Severity Noted Date Comments Amlodipine Swelling 03/28/2019 Hydromorphone (Bulk) Hallucinations 02/02/2018 Metronidazole Hcl Swelling 06/02/2015 Lisinopril Swelling, Cough 09/08/2017 Losartan Swelling 03/31/2018 Nifedipine Swelling 03/28/2019 Penicillins Hives 06/02/2015 documented as of this encounter (statuses as of 06/29/2019) Medications Medication Sig Dispensed Refills Start End Date Status Date vitamin B-12 (VITAMIN Take 1 tablet by 90 tablet 1 Active B-12) 500 mcg tablet mouth daily. 8 vitamin B-6 (VITAMIN B-6) Take 1 tablet by 90 tablet 1 06/04/ 01 Active 100 mg tablet mouth daily. [...] times daily hyperglycemia, before meals. unspecified whether [facility] insulin use traMADol (ULTRAM) 50 mg Take [...] hours as pain needed for Abdominal pain. documented as of this encounter (statuses as of 06/29/2019) Active Problems Problem Noted Date Diastolic dysfunction [...] as of this encounter (statuses as of 06/29/2019) Resolved Problems Problem Noted Date Resolved Date Chest pain 01/17/2018 11/12/2018 Immunization counseling 01/23/2017 11/12/2018 Temporal headache 01/16/2017 11/12/[address] scan 12/06/2016 11/12/2018 documented as of this encounter (statuses as of 06/29/2019) Immunizations Name Administration Dates Next Due Influenza [...] Office Visit Family Medicine Monica Neely MD [address] [place] [phone] Health Maintenance Due Date Last Done [...] 02/25/2017 LUNG CANCER SCREEN: Recommended Discontinued 02/03/2018, 08/ 06/2017, for age 55-80 with 30 + pack year 11/14/2016 history PNEUMOCOCCAL 0-64 YEARS COMBINED Completed 02/07/2018 SERIES HEPATITIS C (HCV) SCREEN Completed 11/20/2018 INFLUENZA VACCINE Completed 02/12/2019, 02/07/2018 documented as of this encounter Procedures Procedure Name Priority Date/Time Associated Diagnosis Comme nts MEDICATION CORRESPONDENCE Routine 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
--- OUTSIDE RECORDS SUMMARY | 2019-09-01 20:09 | XMS REPORT | Summary of Care ---
:1955 Author Organization [facility] [employer] Address [address] [place] [id number] Care Team Providers Name Role Phone Isis Neely MD Primary Care Provider Reason for Visit Reason Comments Follow-up HTN Encounter Details Date Type Department Care Team Description 07/09/2019 Telemedicine Visit [facility] Family Del Neely hypertension (Primary Dx); Medicine - Anand Marinelli MD Acute bilateral low back pain without sc iatica; [address] [facility] Acute shari rgic rhinitis; [place] [id number] Allergies Active Allergy Reactions Severity Noted Date Comments Amlodipine Swelling 03/28/2019 Hydromorphone (Bulk) Hallucinations 02/02/2018 Metronidazole Hcl Swelling 06/02/2015 Lisinopril Swelling, Cough 09/08/2017 Losartan Swelling 03/31/2018 Nifedipine Swelling 03/28/2019 Penicillins Hives 06/02/2015 documented as of this encounter (statuses as of 07/09/2019) Medications Medication Sig Dispensed Refills Start End [...] at 19 Neuropathy of both feet bedtime. glimepiride 4 mg 1 tablet po qAM 135 tablet 1 12/03/19 Active tabletIndications: Type with breakfast, 19 2 diabetes mellitus 1/2 tablet po with hyperglycemia, qPM with dinner unspecified whether residential insulin use repaglinide 0.5 mg Take 1 tablet 270 tablet 1 12/03/19 Active tabletIndications: Type by mouth 3 19 2 diabetes mellitus (three) times with hyperglycemia, daily before unspecified whether meals. 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 MAGNESIUM OXIDE 400 mg TAKE 2 TABLETS [...] mouth once 20 tabletIndications: daily Essential hypertension loratadine 10 mg Take 1 tablet 90 tablet 1 07/09/19 Active tabletIndications: by mouth once 20 Acute allergic rhinitis daily as needed for Allergies. tiZANidine 2 mg Take 0.5-1 90 tablet 1 07/09/19 Act jake tabletIndications: tablets by 20 Myalgia mouth every 8 (eight) hours as needed (muscle pain or spasm). tiZANidine 2 mg Take 0.5-1 30 tablet 0 11/11/1907/08/ continued tabletIndications: tablets by 2019 (Reorder) Myalgia mouth every 8 (eight) hours as needed (muscle pain or spasm). codeine-guaifenesin Take 5-10 mL by 120 mL 0 02/05/20 03/ 7/ Discontinued 10-100 mg/5 mL mouth every 4 2019 ( Condition no solutionIndications: (four) hours as longer Hypoxia needed for warrants) Cough. documented as of this encounter (statuses as of 07/09/2019) Active Problems Problem Noted Date Diastolic dysfunction [...] as of this encounter (statuses as of 07/09/2019) Resolved Problems Problem Noted Date Resolved Date Chest pain 01/17/2018 11/12/2018 Immunization counseling 01/23/2017 11/12/2018 Temporal headache 01/16/2017 11/12/[address] scan 12/06/2016 11/12/2018 documented as of this encounter (statuses as of 07/09/2019) Immunizations Name Administration Dates Next Due Influenza [...] Sign Reading Time Taken Comments Blood Pressure 133/87 07/09/2019 8:43 AM CDT Pulse 103 07/09/2019 8:43 AM CDT Temperature - - Respiratory Rate - - Oxygen Saturation - - Inhaled Oxygen Concentration - - Weight - - Height - - Body Mass Index - - documented in this encounter Patient Instructions Patient InstructionsDunia Garlandn R - 07/09/2019 8:15 AM CDT Patient Education Controlling High Blood Pressure High blood pressure [...] can, walk or bike instead of driving. [place] leaves, garden, or do household repairs. Be [...] healthcare provider before stopping or changing them. [employer] last reviewed this educational content on 09/12/201819990614-8953 [employer]. [address] [place] [address], [place] [address]. All rights reserved. This information is not intended as a substitute for professional medical care. Always follow your healthcare professional's instructions. Patient Education Your High Blood Pressure Risk Factors Risk factors are things that make you more likely to have a disease or condition. Do you know your risk factors for high blood pressure? You cant do anything about some risk factors. But other risk factors are things that can be changed. Know what high blood pressure risk factors you have. Then find out what changes you can make to help control your risk for high blood pressure.Start with the change that you think will be easiest for you. Risk factors you cant control Though you cant change any of the things listed below, check off the ones that apply to you. The more boxes you check, the greater your risk for high blood pressure. Family history ? One or both of your parents or grandparents has had high blood pressure or heart disease. Gender, age, and race ? Youre a man over age 55 or a postmenopausal woman. Or you are . Risk factors you can control There are plenty of risk factors for high blood pressure that you can control. Learn what these riskfactors are and then find out how to reduce your risk. Check the ones that apply to you. ? What you eat Do you eat a lot of salty, fatty, fried, or greasy foods? Do you go to restaurants or eat out frequently? ? What you drink Do you have more than 1 alcoholic drink a day if you are a female or more than 2 drinks a day if youmale? ? If you smoke or someone close to you smokes Do you smoke cigarettes or cigars, chew tobacco, or dip snuff? Are you exposed to second-hand smoke on a regular basis? ? How active you are Are you inactive most of the time at work and at home? Do you go weeks without exercising? ? Your weight Has your doctor said that you are 15 or more pounds overweight? ? Your stress level Do you often feel anxious, nervous, and stressed? Do you feel that you don't have a supportive environment? [employer] last reviewed this educational content on 10/12/201819992375-0824 [employer]. [address] [place] [address], [place] [address]. All rights reserved. This information is not intended as a substitute for professional medical care. Always follow your healthcare professional's instructions. Electronically signed by Pearl Garland 07/09/2019 8:18 AM CDT documented in this encounter Progress Notes Rosalina Neely MD - 07/09/2019 8:15 AM CDT TELEHEALTH NOTE Verbal consent obtained from Patient: Amy Montalvo for telehealth services provided below. Communication with patient was conducted via Telephone. Other participants in this telehealth encounter: None. Location of Patient: Home. Location of Provider: Office. Date of Service: 07/09/2019 Cc: Chief Complaint Patient presents with Follow-up HTN HPI Amy Montalvo is a 63 year old female who participated in a Telehealth visit today for HTN follow-up. She also c/o runny nose and sneezing along with back pain. HTN follow-up Medication compliance: Good. Denies adverse medication side effects. Dietary compliance: Good. Exercise frequency: None. Blood pressure readings: 120s-130s/70s-80s. Associated symptoms: None. Denies cp or SOB. Cardiovascular screening (ex. EKG, stress test) in the past 3 years?: Yes, she is followed at regular intervals by [facility] Cardiology. RUNNY NOSE Presenting symptoms: congestion, cough (mild, partially resolved) and rhinorrhea Presenting symptoms: no fever Severity: Mild Onset quality: Gradual Duration: few weeks. Progression: Improving Chronicity: Recurrent Relieved by: None tried Ineffective treatments: None tried Associated symptoms: myalgias and sneezing Associated symptoms: no headaches, no sinus pain, no swollen glands and no wheezing Risk factors: chronic cardiac disease, chronic respiratory disease and diabetes mellitus Risk factors: no recent travel and no sick contacts Back Pain Location: Lumbar spine Quality: Aching Radiates to: Does not radiate Pain severity: Moderate Pain is: Worse during the day Onset quality: Gradual Duration: 2 weeks Timing: Intermittent Progression: Unchanged Chronicity: New Context: not MVA, not physical stress and not recent injury Relieved by: Nothing Ineffective treatments: Bed rest Associated symptoms: no abdominal pain, no abdominal swelling, no bladder incontinence, no bowel incontinence, no chest pain, no dysuria, no fever, no headaches, no leg pain, no numbness, no paresthesias, no pelvic pain, no perianal numbness, no tingling, no weakness and no weight loss Risk factors: lack of exercise Allergies Amy is allergic to amlodipine; dilaudid [hydromorphone (bulk)]; flagyl [metronidazole hcl]; lisinopril; losartan; nifedipine; and pcn [penicillins]. Medications Outpatient Medications Prior to Visit Medication Sig Dispense Refill METOPROLOL SUCCINATE XL 50 mg 24 hr tablet Take 1 tablet by mouth once daily 90 tablet 0 azithromycin (ZITHROMAX) 250 mg tablet Take 500 mg PO day 1, then 250 mg days 2 to 5. 6 tablet 0 benzonatate 200 mg capsule Take 1 capsule by mouth 3 (three) times daily as needed for Cough. 30capsule 0 coenzyme Q10 (COQ-10) 100 mg softgel Take 1 capsule by mouth daily. 90 capsule 3 fluticasone propionate 50 mcg/actuation nasal spray Use 2 Sprays in each nostril daily. 16 g 0 linaCLOtide (LINZESS) 290 mcg Cap Take 1 capsule by mouth daily. 90 capsule 3 NIFEdipine XL 60 mg 24 hr tablet Take 1 tablet by mouth daily. 90 tablet 1 dicyclomine 20 mg tablet Take 1 tablet by mouth every 6 (six) hours as needed for Abdominal pain. 20 tablet 0 acetaminophen-codeine 300-30 mg tablet Take 1 tablet by mouth every 4 (four) hours as needed forPain (scale 4-6). 12 tablet 0 ROSUVASTATIN 20 mg tablet TAKE 1 TABLET BY MOUTH AT BEDTIME, STOP TAKING ATORVASTATIN 90 tablet 3 MAGNESIUM OXIDE 400 mg (241.3 mg magnesium) [...] or Shortness of Breath. 8.5 g 5 blood sugar diagnostic strip Use as directed. E11.21. Check once daily 100 Strip 3 lancets 33 gauge Misc Use as directed. E11.21. Check once daily 100 Each 3 inhalational spacing device May substitute other spacing device 1 Each 0 Blood-Glucose Meter (ONETOUCH VERIO IQ METER) Kit Use as directed, DX:E11.9 1 Kit 0 furosemide 20 mg tablet Take 1 tablet by mouth every Friday, Friday and Friday. 36 tablet 1 codeine-guaifenesin 10-100 mg/5 mL solution Take 5-10 [...] EC tablet 1 omeprazole 40 mg capsule FERROUS GLUCONATE 324 mg (37.5 mg iron) tablet TAKE 1 TABLET BY MOUTH ONCE DAILY 90 tablet 1 magnesium oxide 400 mg (241.3 mg magnesium) tablet TAKE 2 TABLETS BY MOUTH 4 TIMES DAILY 240 tablet 5 fluticasone-vilanterol (BREO ELLIPTA) 100-25 mcg/dose DsDv Inhale 1 Puff daily. Rinse mouth after each use. 1 Each 5 metFORMIN 1,000 mg tablet Take 1 tablet by mouth 2 (two) times daily with meals. 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 Negative for fever and weight loss. HENT: Positive for congestion, rhinorrhea and sneezing. Negative for sinus pain. Eyes: Negative. Respiratory: Positive for cough (mild, partially resolved). Negative for wheezing. Cardiovascular: Negative. Negative for chest pain. Gastrointestinal: Negative. Negative for abdominal pain and bowel incontinence. Genitourinary: Negative. Negative for bladder incontinence, dysuria and pelvic pain. Musculoskeletal: Positive for back pain and myalgias. Skin: Negative. Neurological: Negative. Negative for tingling, weakness, numbness, headaches and paresthesias. Psychiatric/Behavioral: Negative. Endocrine: Endocrine negativeNegative for weight loss. Vital Signs BP 133/87 | Pulse 103 Level of pain 4. Physical Exam Constitutional: She is oriented to person, place, and time. No distress. Pulmonary/Chest: No respiratory distress. No audible adventitious breath sounds Neurological: She is alert and oriented to person, place, and time. Answers questions appropriately Psychiatric: She has a normal mood and affect. Judgment and thought content normal. Cognition and memory are normal. LABS: CBC CMP WBC (10*3/L) Date Value 05/27/2019 7.72 NA (mmol/L) Date Value 05/27/2019 143 RBC (10*6/L) Date Value 05/27/2019 4.73 K (mmol/L) Date Value 05/27/2019 4.4 PLT (10*3/L) Date Value 05/27/2019 323 CALCIUM (mg/dL) Date Value 05/27/2019 9.0 HGB (g/dL) Date Value 05/27/2019 10.7 (L) CL (mmol/L) Date Value 05/27/2019 103 HCT (%) Date Value 05/27/2019 36.7 BUN (mg/dL) Date Value 05/27/2019 18 LIPID PANEL CREATININE (mg/dL) Date Value 05/27/2019 0.85 CHOL (mg/dL) Date Value 11/26/2018 116 (L) CHOLESTEROL, TOTAL-Q (mg/dL) Date Value 02/12/2017 148 GLUCOSE (mg/dL) Date Value 05/27/2019 135 (H) GLUCOSE-Q (no units) Date Value 02/12/2017 3+ LDL CHOL (mg/dL) Date Value 11/26/2018 27 [id number] (mg/dL (calc)) Date Value 02/12/2017 63 CO2 TOTAL (mmol/L) Date Value 05/27/2019 30 HDL CHOLESTEROL-Q (mg/dL) Date Value 02/12/2017 63 HDL (mg/dL) Date Value 11/26/2018 67 ALBUMIN Date Value Ref Range Status 05/27/2019 4.2 3.5 - 5.0 g/dL Final TRIG (mg/dL) Date Value 11/26/2018 112 TRIGLYCERIDES-Q (mg/dL) Date Value 02/12/2017 141 T PROTEIN Date Value Ref Range Status 05/27/2019 7.2 6.3 - 8.2 g/dL Final TSH TOTAL BILI Date Value Ref Range Status 05/27/2019 0.3 0.1 - 1.1 mg/dL Final TSH (mIU/L) Date Value 02/02/2019 0.71 TSH, 3RD GENERATION-Q (mIU/L) Date Value 02/12/2017 0.72 No components found for: BILIUNCOM BILI CONJ Date Value Ref Range Status 02/11/2019 0.0 0.0 - 0.3 mg/dL Final ALT(SGPT) Date Value Ref Range Status 12/30/2018 18 9 - 51 U/L Final ALTv Date Value Ref Range Status 05/27/2019 18 5 - 35 U/L Final AST(SGOT) Date Value Ref Range Status 05/27/2019 38 13 - 40 U/L Final ALK PHOS Date Value Ref Range Status 05/27/2019 67 34 - 122 U/L Final ASSESSMENT/PLAN Diagnoses and all orders for this visit: Essential hypertension Home bp readings are mostly at goal. Continue current medication(s). Low sodium diet/DASH diet. Exercise per [employer]'s recommendations. The patient was instructed to self monitor her blood pressure once daily varying the times when it is checked and to bring the record of readings to each office visit. The patient should follow-up sooner if the blood pressure is trending >/=130/80. Labsplanned for next visit. Acute bilateral low back pain without sciatica There are no radicular symptoms to suggest spinal cord/spinal nerve involvement in the patient's symptoms so no imaging was recommended at this time. Muscle relaxant therapy was prescribed as noted. Tylenol Arthritis q8hrs PRN was recommended. NSAID therapy was not recommended given her age and therenal, CVS, and GI risks of this medication class. Imaging, PT referral, or Orthopaedics referral can be considered if the patient's symptoms don't improve. - tiZANidine 2 mg tablet; Take 0.5-1 tablets by mouth every 8 (eight) hours as needed (muscle pain or spasm). Acute allergic rhinitis She will restart her nasal steroid (she has a supply of fluticasone) and I have added an oral antihistamine as noted. Mucinex max strength 1200mg tabs q12hr PRN congestion for mucolytic and expectorant action. The patient was advised to stay hydrated to aid in clearance of secretions. Recommended avoidance of allergic triggers whenever possible. We reviewed tips for controlling allergens in the patient's environment. - loratadine 10 mg tablet; Take 1 tablet by mouth once daily as needed for Allergies. Plan of care, desired health behaviors, goals, Ddx, and any prescribed medications were discussed with the patient. I spent 16 minute(s) conducting this Telehealth encounter with the patient. Education resources and self- management tools were provided is the S which is accessible through [employer]. Patient/guardian/family verbalized understanding and agrees to the plan of care. Barriers to care:None. Ability to manage care: Good. Advanced care planning (living will) information was not given/offered to the patient to review for discussion at a future visit. If applicable, the [place] [employer] database was accessed to review any controlled substance prescription claims data. If the patient is taking prescribed medications, the [employer] prescription claims data in [employer] was reviewed to assess patient compliance with the medication treatment plan. COVID-19 precautions given including frequent handwashing, social distancing, cleaning and disinfecting, indications for testing, etc. Follow-up: 3 months. Follow-up sooner if any problems or concerns. Scribe Attestation Pearl Gil , am scribing for, and in the presence of, Rosalina Neely MD who performed the services described here-in. Pearl Garland, July 09, 2019, 8:14 AM Physician Attestation I, Rosalina Neely MD, personally performed the services described in this documentation , as scribed by, Pearl Garland in my presence and it is both accurate and complete. Rosalina Neely MD July 09, 2019, 8:14 AM documented in this encounter Plan of Treatment Health [...] Essential hypertension - Primary Unspecified essential hypertension Acute bilateral low back pain without sc iatica Acute allergic rhinitis Myalgia Mylagia and myositis, unspecified documented in this encounter [phone] (Work) documented as of this encounter"
--- OUTSIDE RECORDS SUMMARY | 2019-09-01 20:09 | XMS REPORT | Summary of Care ---
:1955 Author Organization [facility] [employer] Address [address] [place] [address] Care Team Providers Name Role Phone Isis Neely MD Primary Care Provider Reason for Visit Reason Comments Rx Concern/Question Encounter Details Date Type Department Care Team Description 07/12/2019 Telephone [facility] [employer] Kailey Rosales, Rx C oncern/Question [facility] [address] [place] [address] [address], [address] [place] [address] [place] [address] [phone] Allergies Active Allergy Reactions Severity Noted Date Comments Amlodipine Swelling 03/28/2019 Hydromorphone (Bulk) Hallucinations 02/02/2018 Metronidazole Hcl Swelling 06/02/2015 Lisinopril Swelling, Cough 09/08/2017 Losartan Swelling 03/31/2018 Nifedipine Swelling 03/28/2019 Penicillins Hives 06/02/2015 documented as of this encounter (statuses as of 07/20/2019) Medications Medication Sig Dispensed Refills Start End [...] MOUTH ONCE DAILY 9 tabletIndications: Iron deficiency omeprazole 40 mg capsule 0 Active 9 mesalamine 1.2 gram EC 1 Active tablet 9 gabapentin 100 mg Take 1 capsule by 90 capsule 1 Active capsuleIndications: mouth at bedtime. 9 Neuropathy of both feet glimepiride 4 mg 1 tablet po qAM 135 tablet 1 Active tabletIndications: Type 2 with breakfast, 9 diabetes mellitus with 1/2 tablet po qPM hyperglycemia, with dinner unspecified whether [facility] insulin use repaglinide 0.5 mg Take 1 tablet by 270 tablet 1 Active tabletIndications: 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 unspecified whether [facility] insulin use traMADol (ULTRAM) 50 mg Take [...] bronchitis, Acute needed for Cough. allergic rhinitis METOPROLOL SUCCINATE XL Take 1 tablet by 90 tablet 0 Active 50 mg 24 hr mouth once daily 0 tabletIndications: Essential hypertension loratadine 10 mg Take 1 tablet by 90 tablet 1 Active tabletIndications: Acute mouth once daily 0 allergic rhinitis as needed for Allergies. tiZANidine 2 mg Take 0.5-1 90 tablet 1 Act jake tabletIndications: tablets by mouth 0 Myalgia every 8 (eight) hours as needed (muscle pain or spasm). documented as of this encounter (statuses as of 07/20/2019) Active Problems Problem Noted Date Diastolic dysfunction [...] as of this encounter (statuses as of 07/20/2019) Resolved Problems Problem Noted Date Resolved Date Chest pain 01/17/2018 11/12/2018 Immunization counseling 01/23/2017 11/12/2018 Temporal headache 01/16/2017 11/12/[address] scan 12/06/2016 11/12/2018 documented as of this encounter (statuses as of 07/20/2019) Immunizations Name Administration Dates Next Due Influenza [...] Date Last Done Comments DTaP,Tdap,and Td Vaccines ( - 1965 Tdap) PAP SMEAR 11/16/1975 Breast [...] 02/25/2017 LUNG CANCER SCREEN: Recommended Discontinued 02/03/2018, 08/0 06/2017, for age 55-80 with 30 + pack year 11/14/2016 history PNEUMOCOCCAL 0-64 YEARS COMBINED Completed 02/07/2018 SERIES HEPATITIS C (HCV) SCREEN Completed 11/20/2018 INFLUENZA VACCINE Completed 02/12/2019, 02/07/2018 documented as of this encounter Results Not on filedocumented in this encounter Insurance Payer Benefit Plan / Group Subscriber ID Effective Dates Phone Address Type [employer] A[employer] T[employer] CARE [id number] 2013-Present PPO documented as of this encounter
--- OUTSIDE RECORDS SUMMARY | 2019-09-01 20:10 | XMS REPORT | Summary of Care ---
:1955 Author Organization [employer] Address [address] [place] [id number] Care Team Providers Name Role Phone Isis Neely MD Primary Care Provider Reason for Visit Reason Comments Assessment Notification Encounter Details Date Type Department Care Team Description 07/28/2019 Telephone [facility] Family Rosalina Neely ssjustin; Medicine - Anand Marinelli MD Notification [facility] [address] [place] [phone] Allergies Active Allergy Reactions Severity Noted Date Comments Amlodipine Swelling 03/28/2019 Hydromorphone (Bulk) Hallucinations 02/02/2018 Metronidazole Hcl Swelling 06/02/2015 Lisinopril Swelling, Cough 09/08/2017 Losartan Swelling 03/31/2018 Nifedipine Swelling 03/28/2019 Penicillins Hives 06/02/2015 documented as of this encounter (statuses as of 07/29/2019) Medications Medication Sig Dispensed Refills Start End [...] times daily hyperglycemia, before meals. 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 use traMADol (ULTRAM) 50 mg Take [...] as of this encounter (statuses as of 07/29/2019) Active Problems Problem Noted Date Diastolic dysfunction [...] as of this encounter (statuses as of 07/29/2019) Resolved Problems Problem Noted Date Resolved Date Chest pain 01/17/2018 11/12/2018 Immunization counseling 01/23/2017 11/12/2018 Temporal headache 01/16/2017 11/12/[address] scan 12/06/2016 11/12/2018 documented as of this encounter (statuses as of 07/29/2019) Immunizations Name Administration Dates Next Due Influenza [...] Effective Dates Phone Address Type AETNA AETNA [facility] CARE [id number] 2013-Present PPO documented as of this encounter
--- OUTSIDE RECORDS SUMMARY | 2019-09-01 20:10 | XMS REPORT | Summary of Care ---
:1955 Author Organization [facility] Address [address] [place] [address] Care Team Providers Name Role Phone Isis Neely MD Primary Care Provider Reason for Visit Reason Comments Refill Request Encounter Details Date Type Department Care Team Description 08/07/2019 Refill [facility] Endocrinology- Davnia Nascimento MD Refill Request [facility] [address] [place] [address] [address] [place] [address] Allergies Active Allergy Reactions Severity Noted Date Comments Amlodipine Swelling 03/28/2019 Hydromorphone (Bulk) Hallucinations 02/02/2018 Metronidazole Hcl Swelling 06/02/2015 Lisinopril Swelling, Cough 09/08/2017 Losartan Swelling 03/31/2018 Nifedipine Swelling 03/28/2019 Penicillins Hives 06/02/2015 documented as of this encounter (statuses as of 08/09/2019) Medications Medication Sig Dispensed Refills Start End [...] Active deviceIndications: other spacing 9 Bronchospasm device blood sugar diagnostic Use as directed. 100 [...] times daily hyperglycemia, before meals. 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
--- OUTSIDE RECORDS SUMMARY | 2019-09-01 20:10 | XMS REPORT | Summary of Care ---
:1955 Author Organization [facility] Address [address] [place] [id number] Care Team Providers Name Role Phone Isis Neely MD Primary Care Provider Reason for Visit Reason Comments Erroneous encounter-disregard Encounter Details Date Type Department Care Team Description 08/16/2019 Telephone [facility] Family Rosalina Neely E rroneous Medicine - Anand FERRARO encounter-disregard [address] [address] [address] [place] [phone] Allergies Active Allergy Reactions Severity Noted Date Comments Amlodipine Swelling 03/28/2019 Hydromorphone (Bulk) Hallucinations 02/02/2018 Metronidazole Hcl Swelling 06/02/2015 Lisinopril Swelling, Cough 09/08/2017 Losartan Swelling 03/31/2018 Nifedipine Swelling 03/28/2019 Penicillins Hives 06/02/2015 documented as of this encounter (statuses as of 08/16/2019) Medications Medication Sig Dispensed Refills Start End [...] times daily hyperglycemia, before meals. 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 metFORMIN 1,000 mg Take 1 tablet by 180 tablet 3 Active tabletIndications: Type 2 mouth 2 (two) 0 diabetes mellitus with times daily with diabetic nephropathy, meals. with long-term current use of insulin documented as of this encounter (statuses as of 08/16/2019) Active Problems Problem Noted Date Diastolic dysfunction [...] as of this encounter (statuses as of 08/16/2019) Resolved Problems Problem Noted Date Resolved Date Chest pain 01/17/2018 11/12/2018 Immunization counseling 01/23/2017 11/12/2018 Temporal headache 01/16/2017 11/12/[address] scan 12/06/2016 11/12/2018 documented as of this encounter (statuses as of 08/16/2019) Immunizations Name Administration Dates Next Due Influenza [...] [facility] [id number] 2013-Present PPO documented as of this encounter
--- OUTSIDE RECORDS SUMMARY | 2019-09-01 20:11 | XMS REPORT | Summary of Care ---
:1955 Author Organization [facility] Address [address] [place] [address] Care Team Providers Name Role Phone Isis Neely MD Primary Care Provider Reason for Referral (Routine) Status Reason Specialty Diagnoses / Referred By Referred To Contact Procedures Contact New Request Diagnoses Memory impairment Rosalina Neely Howard Procedures CONSULT/REFERRAL NEUROLOGY A, MD Zhong, [address] [place] [address] [address] [facility]. [address] [place], [place] Phone: [phone] Fax: Reason for Visit Reason Comments Rx Concern/Question Encounter Details Date Type Department Care Team Description 08/16/2019 Telephone [facility] Pediatric Rosalina Neely Rx Concern/Question and Adult Primary Care- MD Michel [address] [place] [address] [address] [facility] , [place], [place] [address] [address] [place] [address] [phone] Allergies Active Allergy Reactions Severity Noted Date Comments Amlodipine Swelling 03/28/2019 Hydromorphone (Bulk) Hallucinations 02/02/2018 Metronidazole Hcl Swelling 06/02/2015 Lisinopril Swelling, Cough 09/08/2017 Losartan Swelling 03/31/2018 Nifedipine Swelling 03/28/2019 Penicillins Hives 06/02/2015 documented as of this encounter (statuses as of 08/17/2019) Medications Medication Sig Dispensed Refills Start End Date Status Date vitamin B-12 (VITAMIN Take 1 tablet by 90 tablet 1 Active B-12) 500 mcg tablet mouth daily. 8 vitamin B-6 (VITAMIN B-6) Take 1 tablet by 90 tablet 1 01 Active 100 mg tablet mouth daily. 8 Blood-Glucose Meter Use as directed, 1 Kit 0 Active (Blossom RecordsUCH VERIO IQ METER) DX:E11.9 8 Kit albuterol [...] po qPM hyperglycemia, with dinner unspecified whether oil heaterman insulin use repaglinide 0.5 mg Take 1 [...] as of this encounter (statuses as of 08/17/2019) Active Problems Problem Noted Date Diastolic dysfunction [...] as of this encounter (statuses as of 08/17/2019) Resolved Problems Problem Noted Date Resolved Date Chest pain 01/17/2018 11/12/2018 Immunization counseling 01/23/2017 11/12/2018 Temporal headache 01/16/2017 11/12/[address] scan 12/06/2016 11/12/2018 documented as of this encounter (statuses as of 08/17/2019) Immunizations Name Administration Dates Next Due Influenza [...] filedocumented in this encounter Visit Diagnoses Diagnosis Memory impairment - Primary Memory loss documented in this encounter Insurance Payer Benefit Plan / Group Subscriber ID Effective Dates Phone Address Type AETNA AETNA [facility] [id number] 2013-Present PPO documented as of this encounter
--- OUTSIDE RECORDS SUMMARY | 2019-09-01 20:12 | XMS REPORT | Summary of Care ---
:1955 Author Organization [facility] [employer] Address [address] [place] [id number] Care Team Providers Name Role Phone Isis Neely MD Primary Care Provider Reason for Visit Reason Comments Assessment Encounter Details Date Type Department Care Team Description 08/31/2019 Telephone [facility] Family Medicine Rosalina Cherry MD Assessment - [address] [facility] [place] [address] [place] [address] [phone] Allergies Active Allergy Reactions Severity Noted Date Comments Amlodipine Swelling 03/28/2019 Hydromorphone (Bulk) Hallucinations 02/02/2018 Metronidazole Hcl Swelling 06/02/2015 Lisinopril Swelling, Cough 09/08/2017 Losartan Swelling 03/31/2018 Nifedipine Swelling 03/28/2019 Penicillins Hives 06/02/2015 documented as of this encounter (statuses as of 08/31/2019) Medications Medication Sig Dispensed Refills Start End [...] po qPM hyperglycemia, with dinner unspecified whether emt intermediate insulin use repaglinide 0.5 mg Take 1 tablet by 270 tablet 1 Active tabletIndications: 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 unspecified whether penitentiary insulin use traMADol (ULTRAM) 50 mg Take [...] as of this encounter (statuses as of 08/31/2019) Active Problems Problem Noted Date Diastolic dysfunction [...] as of this encounter (statuses as of 08/31/2019) Resolved Problems Problem Noted Date Resolved Date Chest pain 01/17/2018 11/12/2018 Immunization counseling 01/23/2017 11/12/2018 Temporal headache 01/16/2017 11/12/[address] scan 12/06/2016 11/12/2018 documented as of this encounter (statuses as of 08/31/2019) Immunizations Name Administration Dates Next Due Influenza [...] Effective Dates Phone Address Type AETNA AETNA [facility] [id number] 2013-Present PPO documented as of this encounter
--- NOTE | 2019-09-01 21:15 | RAD REPORT ---
EXAM DESCRIPTION: Parvez Single View09/01/2019 9:06 pm CLINICAL HISTORY: Abdominal pain COMPARISON: 2018 FINDINGS: The lungs appear clear of acute infiltrate. The heart is mildly enlarged IMPRESSION: No acute abnormalities displayed
[2019-09-01 21:29] LABS: Absolute Lymphocytes (CBC) 3.1 K/uL (0.7-4.9); Basophils % 1.5 % (0-1.3); Hematocrit 27.8 % (36.0-45.0); MPV 8.8 fL (7.6-11.3); RBC Red Blood Cell Count 3.67 M/uL (3.86-4.86)
[2019-09-01 21:30] LABS: Protime INR 0.93
[2019-09-01] MEDS ORDERED: NA CHLORIDE 0.9% 500 ML ONE (22:22)
[2019-09-01 22:48] LABS: ALT/SGPT 19 U/L (12-78); AST/SGOT 15 U/L (15-37); Albumin 2.8 g/dL (3.4-5.0); Alkaline Phosphatase 82 U/L (45-117); BUN Blood Urea Nitrogen 18 mg/dL (7-18); Bicarbonate 31 mmol/L (21-32); Bilirubin Direct < 0.1 mg/dL (0-0.2); Bilirubin Total 0.1 mg/dL (0.2-1.0); Glucose Level 76 mg/dL (74-106); Magnesium 1.8 mg/dL (1.8-2.4); NT PRO-BNP 78 pg/mL (<125); Potassium 3.6 mmol/L (3.5-5.1); Protein, Total 7.3 g/dL (6.4-8.2); Sodium Level 141 mmol/L (136-145); Troponin (Emerg Dept Use Only) < 0.02 ng/mL (0.0-0.045)
--- NOTE | 2019-09-01 23:31 | ER ---
Nurse's Notes [facility] Name: Amy Montalvo Age: 63 yrs Sex: Female : 1955 Arrival Date: 09/01/2019 Time: 19:45 Bed 18 Private MD: Diagnosis: Dizziness and giddiness Presentation: 08/31 20:06 Chief complaint: Patient states: when I stand up and move around I get dizzy and light iw headed since Friday, also having right low back pain since last when she was here for diverticulitis and bleeding, denies blood in stool at this time , also has mild low abd pain, last BM this afternoon, only small amount. Coronavirus screen: Proceed with normal triage. Patient denies a cough. Patient denies shortness of breath or difficulty breathing. Patient denies measured and/or subjective temperature greater than 100.4F prior to today's visit. Patient denies travel on a cruise ship or to a country the [facility] currently lists as an affected area. Patient denies contact with known and/or suspected case of COVID-19. Ebola Screen: Patient negative for fever greater than or equal to 101.5 degrees Fahrenheit, and additional compatible Ebola Virus Disease symptoms Patient denies exposure to infectious person. Patient denies travel to an Ebola-affected area in the 21 days before illness onset. No symptoms or risks identified at this time. Initial Sepsis Screen: Does the patient meet any 2 criteria? No. Patient's initial sepsis screen is negative. Does the patient have a suspected source of infection? No. Patient's initial sepsis screen is negative. Risk Assessment: Do you want to hurt yourself or someone else? Patient reports no desire to harm self or others. Onset of symptoms was August 29, 2019. 20:06 Method Of Arrival: Wheelchair iw 20:06 Acuity: FARIDA 3 iw Triage Assessment: 20:32 General: Appears in no apparent distress. uncomfortable, Behavior is calm, cooperative. ls4 20:32 Neuro: No deficits noted. Cardiovascular: No deficits noted. Respiratory: No deficits ls4 noted. Historical: - Allergies: 20:12 Dilaudid; iw 20:12 Flagyl; iw 20:12 PENICILLINS; iw 20:12 Lisinopril; iw - Home Meds: 20:12 aspirin 81 mg Oral TbEC once daily [Active]; metoprolol tartrate 100 mg oral tab once iw daily [Active]; nifedipine 60 mg oral tr24 once daily [Active]; metformin 1,000 mg oral TG24 2 times per day [Active]; glimepiride 2 mg oral tab twice a day [Active]; Vitamin D Oral daily [Active]; Linzess 290 mcg oral cap once daily [Active]; rosuvastatin Oral once daily [Active]; - PMHx: 20:12 Diabetes - NIDDM; Diverticulitis; Hyperlipidemia; Hypertension; Sleep Apnea; iw - PSHx: 20:12 ; Bowel resection; ectopic ; iw - Immunization history:: Adult Immunizations up to date. - Social history:: Smoking status: Patient/guardian denies using tobacco, but has a distant history of tobacco abuse. Screenin:50 Abuse screen: Denies threats or abuse. Denies injuries from another. Nutritional ls4 screening: No deficits noted. Tuberculosis screening: No symptoms or risk factors identified. Fall Risk None identified. Assessment: 20:22 General: Appears in no apparent distress. comfortable. Pain: Denies pain. Neuro: Level ls4 of Consciousness is awake, alert, obeys commands, Reports fatigue . Denies weakness blurred vision dizziness, difficulty swallowing, paresthesias numbness headache photophobia diplopia. Cardiovascular: Capillary refill < 3 seconds Patient's skin is warm and dry. Pulses are 2+ in right radial artery, left radial artery, left posterior tibial artery, bilateral radial, brachial, femoral, popliteal, posterior tibial and and dorsalis pedis arteries. Rhythm is regular. Respiratory: Airway is patent Respiratory effort is even, unlabored, Respiratory pattern is regular. Derm: Skin is intact, with poor turgor Skin is dry, Skin is normal. Musculoskeletal: No deficits noted. No signs and/or symptoms reported regarding the musculoskeletal system. 22:30 Reassessment: Patient appears in no apparent distress at this time. Patient and/or ls4 family updated on plan of care and expected duration. Pain level reassessed. Patient is alert, oriented x 3, equal unlabored respirations, skin warm/dry/pink. 23:34 Reassessment: Patient appears in no apparent distress at this time. Patient and/or ls4 family updated on plan of care and expected duration. Pain level reassessed. Patient is alert, oriented x 3, equal unlabored respirations, skin warm/dry/pink. Vital Signs: 20:06 BP 107 / 84; Pulse 98; Resp 16; Temp 97.4; Pulse Ox 98% on R/A; Weight 92.99 kg; Height iw 5 ft. 7 in. (170.18 cm); Pain 0/10; 22:30 BP 107 / 54; Pulse 80; Resp 14; Pulse Ox 99% on R/A; Pain 0/10; ls4 23:21 BP 111 / 51; Pulse 88; Resp 17; Pulse Ox 98% on R/A; Pain 0/10; mg2 23:44 BP 142 / 70 Standing; Pulse 88; Resp 1; Temp 97.6; Pulse Ox 99% on R/A; Pain 0/10; ls4 20:06 Body Mass Index 32.11 (92.99 kg, 170.18 cm) iw ED Course: 19:45 Patient arrived in ED. ds1 20:09 Triage completed. iw 20:12 Arm band placed on. iw 20:32 Inserted saline lock: 20 gauge in right antecubital area, using aseptic technique. ls4 20:32 Initial lab(s) drawn, by me, sent to lab. Patient maintains SpO2 saturation greater ls4 than 95% on room air. 20:46 Tia Rondon, RN is Primary Nurse. ls4 20:50 Patient has correct armband on for positive identification. Bed in low position. Call ls4 light in reach. Side rails up X 1. library monitor on. Pulse ox on. NIBP on. Warm blanket given. Diet: Patient is NPO. 20:50 No provider procedures requiring assistance completed. ls4 20:51 Danis Wilks MD is Attending Physician. tw4 21:08 XRAY Chest (1 view) In Process Unspecified. EDMS 09/01 00:04 IV discontinued, intact, bleeding controlled, No redness/swelling at site. Pressure ls4 dressing applied. Administered Medications: 08/31 22:13 Drug: NS 0.9% 500 ml Route: IV; Rate: bolus; Site: right antecubital; ls4 23:42 Follow up: Response: No adverse reaction; IV Status: Completed infusion; IV Intake: mg2 500ml 23:42 Drug: Zofran (Ondansetron) 4 mg Route: PO; mg2 23:42 Follow up: Response: No adverse reaction; Medication administered at discharge. mg2 Intake: 23:42 IV: 500ml; Total: 500ml. mg2 Outcome: 23:30 Discharge ordered by . tw4 09/01 00:05 Patient left the ED. ls4 00:05 Discharged to home ambulatory. ls4 00:05 Condition: stable 00:05 Discharge instructions given to patient, Instructed on discharge instructions, follow up and referral plans. medication usage, Demonstrated understanding of instructions, follow-up care, medications. Signatures: Dispatcher [employer] [facility] Torrie Lugo ds1 Mya Vickers, RN RN iw Danis Wilks MD MD tw4 Panchito Crawford RN RN mg2 Tia Rondon RN RN ls4 Corrections: (The following items were deleted from the chart) 08/31 23:39 23:21 BP 111 / 51; Pulse 88bpm; Resp 1bpm; Pulse Ox 98% RA; Pain 0/10; ls4 mg2
--- NOTE | 2019-09-01 23:32 | EDPHYS ---
Physician Documentation [facility] Name: Amy Montalvo Age: 63 yrs Sex: Female : 1955 Arrival Date: 09/01/2019 Time: 19:45 Bed 18 Private MD: ED Physician Danis Wilks HPI: 08/31 23:32 This 63 yrs old Black Female presents to ER via Wheelchair with complaints of tw4 Dizziness, Blood Pressure Problem. 23:32 The patient presents with dizziness. Onset: The symptoms/episode began/occurred today. tw4 Context: occurred at home. Modifying factors: The symptoms are alleviated by lying down, the symptoms are aggravated by movement of head, standing up, changing position. Associated signs and symptoms: The patient has no apparent associated signs or symptoms. Severity of symptoms: At their worst the symptoms were moderate in the emergency department the symptoms are unchanged. The patient has not experienced similar symptoms in the past. Historical: - Allergies: 20:12 Dilaudid; iw 20:12 Flagyl; iw 20:12 PENICILLINS; iw 20:12 Lisinopril; iw - Home Meds: 20:12 aspirin 81 mg Oral TbEC once daily [Active]; metoprolol tartrate 100 mg oral tab once iw daily [Active]; nifedipine 60 mg oral tr24 once daily [Active]; metformin 1,000 mg oral TG24 2 times per day [Active]; glimepiride 2 mg oral tab twice a day [Active]; Vitamin D Oral daily [Active]; Linzess 290 mcg oral cap once daily [Active]; rosuvastatin Oral once daily [Active]; - PMHx: 20:12 Diabetes - NIDDM; Diverticulitis; Hyperlipidemia; Hypertension; Sleep Apnea; iw - PSHx: 20:12 ; Bowel resection; ectopic ; iw - Immunization history:: Adult Immunizations up to date. - Social history:: Smoking status: Patient/guardian denies using tobacco, but has a distant history of tobacco abuse. ROS: 23:32 Constitutional: Negative for fever, chills, and weight loss, Eyes: Negative for injury, tw4 pain, redness, and discharge, Cardiovascular: Negative for chest pain, palpitations, and edema, Respiratory: Negative for shortness of breath, cough, wheezing, and pleuritic chest pain, Abdomen/GI: Negative for abdominal pain, nausea, vomiting, diarrhea, and constipation, Back: Negative for injury and pain, MS/Extremity: Negative for injury and deformity, Skin: Negative for injury, rash, and discoloration. 23:32 Neuro: Positive for dizziness, Negative for altered mental status, gait disturbance, headache, hearing loss, loss of consciousness, seizure activity, speech changes, syncope, tinnitus, tremor, visual changes, weakness. Exam: 23:32 Constitutional: This is a well developed, well nourished patient who is awake, alert, tw4 and in no acute distress. Head/Face: Normocephalic, atraumatic. Chest/axilla: Normal chest wall appearance and motion. Nontender with no deformity. No lesions are appreciated. Cardiovascular: Regular rate and rhythm with a normal S1 and S2. No gallops, murmurs, or rubs. Normal PMI, no JVD. No pulse deficits. Respiratory: Lungs have equal breath sounds bilaterally, clear to auscultation and percussion. No rales, rhonchi or wheezes noted. No increased work of breathing, no retractions or nasal flaring. Abdomen/GI: Soft, non-tender, with normal bowel sounds. No distension or tympany. No guarding or rebound. No evidence of tenderness throughout. Back: No spinal tenderness. No costovertebral tenderness. Full range of motion. MS/ Extremity: Pulses equal, no cyanosis. Neurovascular intact. Full, normal range of motion. Neuro: Awake and alert, GCS 15, oriented to person, place, time, and situation. Cranial nerves II-XII grossly intact. Motor strength 5/5 in all extremities. Sensory grossly intact. Cerebellar exam normal. Normal gait. Vital Signs: 20:06 BP 107 / 84; Pulse 98; Resp 16; Temp 97.4; Pulse Ox 98% on R/A; Weight 92.99 kg; Height iw 5 ft. 7 in. (170.18 cm); Pain 0/10; 22:30 BP 107 / 54; Pulse 80; Resp 14; Pulse Ox 99% on R/A; Pain 0/10; ls4 23:21 BP 111 / 51; Pulse 88; Resp 17; Pulse Ox 98% on R/A; Pain 0/10; mg2 23:44 BP 142 / 70 Standing; Pulse 88; Resp 1; Temp 97.6; Pulse Ox 99% on R/A; Pain 0/10; ls4 20:06 Body Mass Index 32.11 (92.99 kg, 170.18 cm) iw MDM: 20:52 Patient medically screened. 4 23:32 Differential diagnosis: cardiac arrhythmia, CVA, hyperventilation, hypovolemia, tw4 idiopathic dizziness. Data reviewed: vital signs, nurses notes. Data interpreted: Pulse oximetry: Interpretation: normal. Counseling: I had a detailed discussion with the patient and/or guardian regarding: the historical points, exam findings, and any diagnostic results supporting the discharge/admit diagnosis. Special discussion: I discussed with the patient/guardian in detail that at this point there is no indication for admission to the hospital. It is understood, however, that if the symptoms persist or worsen the patient needs to return immediately for re-evaluation. 08/31 20:52 Order name: Basic Metabolic Panel; Complete Time: 23:20 08/31 23:20 Interpretation: Normal except: CRE 1.58; GFR 40. 08/31 20:52 Order name: CBC with Diff; Complete Time: 23:20 08/31 23:20 Interpretation: Normal except: RBC 3.67; HGB 8.9; HCT 27.8; MCV 75.7; MCH 24.2; PLT tw4 383; BASO% 1.5; RDW 18.4. 09/01 19:52 Order name: LFT's; Complete Time: 23:20 08/31 23:20 Interpretation: Normal except: BILIT 0.1; ALB 2.8; GLOB 4.5; A/G 0.6. 08/31 20:52 Order name: Magnesium; Complete Time: 23:20 08/31 23:20 Interpretation: Within normal limits: MG 1.8. 08/31:52 Order name: NT PRO-BNP; Complete Time: 23:20 08/31 23:20 Interpretation: Within normal limits: NT PRO-BNP 78. 08/31 20:52 Order name: PT-INR; Complete Time: 23:20 08/31 23:20 Interpretation: Within normal limits: PT 11.0. 08/31 20:52 Order name: Troponin (emerg Dept Use Only); Complete Time: 23:20 08/31 23:21 Interpretation: Within normal limits: TROPED < 0.02. 08/31 20:52 Order name: XRAY Chest (1 view); Complete Time: 23:20 08/31 20:52 Order name: Cardiac monitoring; Complete Time: 21:38 08/31 20:52 Order name: EKG - Nurse/Tech; Complete Time: 21:39 08/31 20:52 Order name: IV Saline Lock; Complete Time: 21:39 08/31 20:52 Order name: Labs collected and sent; Complete Time: 21:39 08/31 20:52 Order name: O2 Per Protocol; Complete Time: 21:39 08/31 20:52 Order name: O2 Sat Monitoring; Complete Time: 21:39 tw Administered Medications: 22:13 Drug: NS 0.9% 500 ml Route: IV; Rate: bolus; Site: right antecubital; ls4 23:42 Follow up: Response: No adverse reaction; IV Status: Completed infusion; IV Intake: mg2 500ml 23:42 Drug: Zofran (Ondansetron) 4 mg Route: PO; mg2 23:42 Follow up: Response: No adverse reaction; Medication administered at discharge. mg2 Disposition: 09/01/19 23:30 Discharged to Home. Impression: Dizziness and giddiness. - Condition is Stable. - Discharge Instructions: Dizziness. - Medication Reconciliation Form, Thank You Letter, Antibiotic Education, Prescription Opioid Use, Work release form form. - Follow up: Private Physician; When: Upon discharge from the Emergency Department; Reason: Recheck today's complaints, Continuance of care, Re-evaluation by your physician. - Problem is new. - Symptoms have improved. Signatures: Dispatcher [employer] EDMS Mya Vickers RN RN iw Danis Wilks MD MD tw4 Panchito Crawford RN RN mg2 Tia Rondon RN RN ls4 Corrections: (The following items were deleted from the chart) 09/01 00:05 08/31 23:30 09/01/2019 23:30 Discharged to Home. Impression: Dizziness and giddiness. ls4 Condition is Stable. Forms are Medication Reconciliation Form, Thank You Letter, Antibiotic Education, Prescription Opioid Use. Follow up: Private Physician; When: Upon discharge from the Emergency Department; Reason: Recheck today's complaints, Continuance of care, Re-evaluation by your physician. Problem is new. Symptoms have improved. tw4
[2019-09-01] MEDS ORDERED: ONDANSETRON 4 MG (ODT) TAB ONE (23:47)
[2019-09-02 00:32] VITALS: BP 142/70; TEMP 97.6; O2SAT 99
== END 2019-09-02 00:05 | disposition home or self-care (01) ==
LOC: ER 19:42
DX: R42 Dizziness and giddiness (principal); I10 Essential (primary) hypertension; E78.5 Hyperlipidemia, unspecified; E11.9 Type 2 diabetes mellitus without complications; Z79.82 Long term (current) use of aspirin; Z88.0 Allergy status to penicillin; Z88.5 Allergy status to narcotic agent; Z88.8 Allergy status to other drugs, medicaments and biological substances
CPT/HCPCS: 85025; 80048; 36415; 83735; 85610; 80076; 84484; 83880; 71045; 96360; 99285; J7040

== ENCOUNTER 2020-05-26 13:06 | Emergency (ER) | payer OTHER ==
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
[2020-05-26] MEDS ORDERED: KETOROLAC 30 MG/ML INJ ONE (15:30)
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
[2020-05-26 15:44] LABS: Urine Amorphous Sediment 1+ /HPF (NONE SEEN); Urine Bacteria <20 /HPF (<20); Urine Mucus LIGHT /HPF (NONE SEEN); Urine RBC <5 /HPF (NONE SEEN)
[2020-05-26 15:45] LABS: Urine Blood NEGATIVE (NEG); Urine Glucose 1+ (NEG); Urine Protein 1+ (NEG); Urine Specific Gravity 1.025 (1.005-1.030); Urine pH 5.5 (5.0-7.0)
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
[2020-05-26 16:16] VITALS: TEMP 97.3
[2020-05-26 16:17] VITALS: BP 143/91; O2SAT 95
== END 2020-05-26 16:11 | disposition home or self-care (01) ==
LOC: ER 13:06
DX: S16.1XXA Strain of muscle, fascia and tendon at neck level, initial encounter (principal); V49.49XA Driver injured in collision with other motor vehicles in traffic accident, initial encounter; I10 Essential (primary) hypertension; Z88.0 Allergy status to penicillin; Z88.5 Allergy status to narcotic agent; Z88.8 Allergy status to other drugs, medicaments and biological substances
CPT/HCPCS: 71045; 72125; 81003; 81015; 96372; 99283

== ENCOUNTER 2020-08-16 15:05 | Emergency (ER) | payer OTHER ==
--- OUTSIDE RECORDS SUMMARY | 2020-08-16 15:09 | XMS REPORT | Continuity of Care Document ---
:1955 Author Organization [facility] t Address [address] [place] [address] [address]. Carlin [address] [place] [address] Care Team Providers Name Role Phone ERIC Primary Care Physician Unavailable Isis Neely MD Attending Clinician Rivka GOLDEN Attending Clinician Pipo FERRARO Attending Clinician Erich FERRARO Attending Clinician Eric FERRARO Attending Clinician ERIC Attending Clinician Unavailable Ama Dial PT Attending Clinician Sonu FELIPE Attending Clinician Deven ROMEO, M Attending Clinician Unavailable Payers Payer Name Policy Type Policy Effective Date Expiration Date Sour ce Number HUMANA [id number] 2020 [place] MEDICAREHUMANA 00:00:00 [employer] MEDICARE PPO/PFFS/ERS [id number] 2020 -PresentPPO AETNA HMO [id number] 2013 00:00:00 Problems Condition Condition Condition Status Onset Resolution Last Treating Co mments Source Name Details Category Date Date Treatment Clinician Date Vitamin Vitamin Disease Active B12 B12 10-09 Anderso deficiency deficiency 00:00: n 00 Other iron Other iron Disease Active M D deficiency deficiency 10-05 An derso anemia anemia 00:00: n 00 Allergies, Adverse Reactions, Alerts Allergy Allergy Status Severity Reaction(s) Onset Inactive Treating Comm ents Source Name Type Date Date Clinician Hydromor Propensi Active Hallucinatio Correa phone ty to ns 8-03 Methodi adverse 00:00: st reaction 00 s to drug Losartan Propensi Active Swelling 2017-04 [place] ty to 2-18 Method[facility] adverse 00:00: st reaction 00 s to drug Lisinopr Propensi Active Other (See [place] ty to Comments), 09-08 Method i adverse Swelling 00:00: st reaction 00 s to drug Metronid Propensi Active Swelling [place] ty to 2-19 Method[facility] Hcl adverse 00:00: st reaction 00 s to drug Penicill Propensi Active Hives [place] ty to 2 Methodi adverse 00:00: st reaction 00 s to drug Family History Family Member Diagnosis Comments Start Date Stop Date Source Natural brother Lung cancer Aaron son Natural father Diabetes MD Zamzam ackerman Natural father Hypertension Aaron son Maternal grandfather Leukemia MD Isis finley Natural mother Dementia MD Zamzam ackerman Natural sister Thyroid cancer Social History Social Habit Start Date Stop Date Quantity Comments Source History [facility] odist Alcohol Std Drinks History [facility] od[facility] Alcohol Binge Tobacco use and 2019-10-06 2019-10-06 Never used MD Carpio on exposure 00:00:00 00:00:00 Alcohol intake 2019-10-06 2019-10-06 Ex-drinker MD Zamzam ackerman 00:00:00 00:00:00 (finding) History SDOH 2019-01-25 2019-01-25 1 [place] [facility] Alcohol Frequency 00:00:00 00:00:00 History of tobacco 1989-10-05 Current smoker MD Canales use 00:00:00 Sex [birth year] Sunny May ethodist 00:00:00 00:00:00 Smoking Status Start Date Stop Date Source Former smoker 2019-10-06 00:00:00 2019-10-06 00:00:00 MD Aaron diallo Medications Ordered Filled Start Stop Current Ordering Indication Dosage Frequency Signature Comments Components Source Medication Medication Date Date Medication? Clinician (SIG) Name Name meloxicam 2019-0 Yes Chronic 15mg Q24H Take 1 Dixie ston (Mobic) 15 01-05 bilateral tablet (15 Methodi mg tablet 00:00: low back mg total) st 00 pain by mouth without daily as sciatica needed for mild pain. gabapentin 2019-0 Yes Occipital Take 1 tab Correa (NEURONTIN) 01-05 neuralgia at night Methodi 300 mg 00:00: of right st capsule 00 side tiZANidine 2019-0 2020- No Chronic 2mg Q.5D Take 1 [place] (ZANAFLEX) 01-05 bilateral tablet (2 Methodi 2 MG tablet 00:00: 23:59 low back mg total) st 00 :00 pain by mouth 2 without (two) sciatica times a day as needed for muscle spasms for up to 30 days. repaglinide 2020-0 Yes .5mg Take 0.5 MD (PRANDIN) 9-08 mg by Anderso 0.5 mg 06:37: mouth 2 n tablet 03 (two) times a day before meals. magnesium 2020-0 Yes magnesium MD 200 mg tab 9-02 Anderso 19:59: n 43 atropine 1% 2020-0 Yes atropine 1 MD ophthalmic 9-02 % eye Anderso solution 19:59: drops n 43 atorvastati 2020-0 Yes 10mg Take 10 mg MD n (LIPITOR) 9-02 by mouth. And erso 10 mg 19:59: n tablet 43 dapaglifloz 2020-0 Yes Farxiga 10 MD in 9-02 mg tablet Anderso (Farxiga) 19:59: 1 tablet n 10 mg tab 43 daily ferrous 2020-0 Yes Other iron 325mg Take 1 M D sulfate 325 9-02 deficiency tablet Anderso (65 FE) MG 00:00: anemia (325 mg) n EC tablet 00 by mouth at bedtime. pantoprazol 2020-0 Yes Take by Dixie ston e sodium 8-03 mouth. Methodi (PANTOPRAZO 15:13: st LE ORAL) 22 folic 2020-0 Yes Neuropathy 1{tbl} QD Take 1 [place] acid-vit 8-03 tablet by Method i B6-vit B12 00:00: mouth st (Folbee) 00 daily. 2.5-25-1 mg tablet meloxicam 2020-0 2020- No Acute pain 7.5mg Q24H Take 1 Correa (Mobic) 7.5 8-03 09-24 of right tablet M ethodi mg tablet 00:00: 00:00 shoulder (7.[address] 00 :00 total) by mouth daily as needed for mild pain. FOLBEE 2020-0 Yes TAKE 1 MD 2.5-25-1 mg 6-20 TABLET BY And erso tab 00:00: MOUTH ONCE n 00 DAILY metFORMIN 2020-0 Yes TAKE 1 MD (GLUCOPHAGE 6-02 TABLET BY And erso ) 1000 mg 00:00: MOUTH n tablet 00 TWICE DAILY WITH MEALS metoprolol 2019-0 Yes TAKE 1 MD succinate 5-26 TABLET BY Aaron garcia (TOPROL XL) 00:00: MOUTH ONCE n 25 mg 24 hr 00 DAILY tablet VITAMIN D2 2020-0 Yes TAKE ONE MD 1,250 mcg 5-17 CAPSULE BY Jovonmodesto mcclendon (50,000 00:00: MOUTH n unit) 00 EVERY 2 capsule WEEKS WITH FOOD cyclobenzap 2020-0 Yes MD rine 5-07 Anderso (FLEXERIL) 00:00: n 5 mg tablet 00 Folbee 2020-0 2020- No Left arm Take 1 [place] 2.5-25-1 mg 4-27 08-03 pain tablet by Me thodi tablet 00:00: 00:[address] 00 :00 daily tiZANidine 2020-0 Yes TAKE 1 2 MD (ZANAFLEX) 3-27 TO 1 (ONE Jovon rso 2 mg tablet 00:00: HALF TO n 00 ONE) TABLET BY MOUTH EVERY 8 HOURS NEEDED FOR MUSCLE SPASM OR PAIN benzonatate 2020-0 Yes TAKE 1 MD (TESSALON) 2-28 CAPSULE BY And erso 200 mg 00:00: MOUTH n capsule 00 THREE TIMES DAILY NEEDED FOR COUGH fluticasone 2020-0 Yes 2{spray Inhale 2 MD propionate 2-28 } sprays Anderso (FLONASE) 00:00: into each n 50 00 nostril. mcg/spray nasal spray coenzyme 2020-0 Yes 100mg Take 100 MD Q10 100 mg 2-28 mg by Anderso capsule 00:00: mouth. n 00 dicyclomine Yes 20mg Take 20 mg MD (BENTYL) 20 2-06 by mouth. And erso mg tablet 00:00: n 00 acetaminoph Yes TAKE 1 MD en-codeine 2-05 TABLET BY Jovon rso (TYLENOL 00:00: MOUTH n #3) 300 00 EVERY 4 mg-30 mg HOURS tablet NEEDED FOR PAIN SCALE 4 6 ondansetron Yes DISSOLVE 1 MD (ZOFRAN-ODT 2-05 TABLET IN And erso ) 4 mg 00:00: MOUTH n disintegrat 00 EVERY 8 ing tablet HOURS NEEDED FOR NAUSEA AND VOMITING acetaminoph Yes 1{tbl} Take 1 MD en-codeine 2-04 tablet by Jovon rso (TYLENOL 00:00: mouth as n #3) 300 00 needed. mg-30 mg tablet albuterol 2018-04 Yes USE 1 VIAL MD (PROVENTIL, 0-24 IN Anderso VENTOLIN) 00:00: NEBULIZER n 2.5 mg/3 mL 00 EVERY 4 (0.083%) HOURS nebulizer NEEDED FOR solution WHEEZING FOR SHORTNESS OF BREATH metoprolol 2018-04 Yes 100mg QD Take 100 [place] succinate 0-14 mg by Methodi XL 13:15: mouth st (TOPROL-XL) 07 daily. 100 mg 24 hr tablet dulaglutide 2018-04 Yes 1.5mg Inject 1.5 MD (TRULICITY) 0-08 mg under Jovon rso 1.5 mg/0.5 00:00: the skin. n mL 00 injection LINZESS 290 2018-04 Yes 290ug QD Take 290 [place] mcg capsule 0-02 mcg by Method i 00:00: mouth st 00 daily. NIFEdipine Yes 60mg QD Take 60 mg [place] CC (ADALAT 8-28 by mouth Metho di CC) 60 MG 00:00: daily. st 24 hr 00 tablet NIFEdipine Yes TAKE 1 MD (ADALAT CC) 8-28 TABLET BY And erso 60 MG 24 hr 00:00: MOUTH ONCE n tablet 00 DAILY armodafinil 2020- No 2{tbl} Take 2 [place] 50 mg 8-28 08-03 tablets by Methodi tablet 00:00: 00:[address] 00 :00 ferrous 0 2020- No 1{tbl} QD Take 1 [place] gluconate 12-08 08- tablet by Meth mirian 324 mg 00:00: 00:[address] (37.5 mg 00 :00 daily. iron) tablet mesalamine 2020- No QD Take by Dixie gleason (LIALDA) 12-06 08-03 mouth Methodi 1.2 gram EC 00:00: 00:[address] tablet 00 :00 glimepiride Yes 1 tablet [place] (AMARYL) 4 8- po qAM Methodi MG tablet 00:00: with st 00 breakfast, 1/2 tablet po qPM with dinner RESTASIS Yes MD 0.05 % 8-14 Anderso ophthalmic 00:00: n emulsion 00 glimepiride Yes MD (AMARYL) 2 - Anderso mg tablet 00:00: n 00 omeprazole Yes TAKE 1 MD (PriLOSEC) 7 CAPSULE BY And erso 40 MG 00:00: MOUTH ONCE n capsule 00 DAILY omeprazole 2020- No 40mg QD Take 40 mg Correa (PriLOSEC) 7 08-03 by mouth Meth mirian 40 MG 00:00: 00:[address] capsule 00 :00 ergocalcife Yes TAKE 1 [place]l [...] [place] (CRESTOR) 2-19 TABLET BY Met hodi 20 MG 00:00: MOUTH AT st tablet 00 BEDTIME STOP TAKING ATORVASTAT IN cyanocobala Yes 500ug Take 500 M D min 2-21 mcg by Anderso (VITAMIN 00:00: mouth. n B-12) 500 00 mcg tablet Vital Signs Vital Name Observation Time Observation Value Comments Source WEIGHT 2019-10-27 14:28:00 92.8 kg WEIGHT 2019-10-27 14:28:00 92.8 kg WEIGHT 2019-10-19 00:00:00 92.7 kg WEIGHT 2019-10-19 00:00:00 92.7 kg WEIGHT 2019-10-13 00:00:00 91.6 kg WEIGHT 2019-10-13 00:00:00 91.6 kg Systolic blood 2020-01-06 13:39:00 138 mm[Hg] [place] [facility] pressure Diastolic blood 2020-01-06 13:39:00 88 mm[Hg] [place] [facility] pressure Heart rate 2020-01-06 13:39:00 94 /min [place] [facility] Body temperature 2020-01-06 13:39:00 35.78 Jo [place] [facility] Body height 2020-01-06 13:39:00 170.2 cm [place] [facility] Body weight 2020-01-06 13:39:00 95.255 kg [place] [facility] BMI 2020-01-06 13:39:00 32.89 kg/m2 [place] [facility] Systolic blood 2019-12-15 19:40:30 111 mm[Hg] pressure Diastolic blood 2019-12-15 19:40:30 74 mm[Hg] MD Sierra barrera pressure Heart rate 2019-12-15 19:40:30 96 /min MD Aaron diallo Body temperature 2019-12-15 19:40:30 37.11 Jo MD Isis finley Respiratory rate 2019-12-15 19:40:30 18 /min MD Isis finley Body weight 2019-12-15 19:40:30 96.2 kg MD Aaron diallo BMI 2019-12-15 19:40:30 34.49 kg/m2 MD Aaron diallo Oxygen saturation in 2019-12-15 19:40:30 94 /min MD Canales Arterial blood by Pulse oximetry Body height 2019-10-06 20:41:14 167 cm MD Aaron diallo Procedures Procedure Date / Time Performing Clinician Source Performed COMPLETE BLOOD COUNT W/ 2019-12-15 19:00:00 Yenifer Reyes MD DIFFERENTIAL COMPREHENSIVE METABOLIC 2019-12-15 19:00:00 Yenifer Reyes MD PANEL Results CBC 2019-12-15 19:00:00 Yenifer Reyes MD MANUAL DIFFERENTIAL 2019-12-15 19:00:00 Yenifer Reyes MD GLUCOSE LEVEL 2019-12-15 19:00:00 Yenifer Reyes MD BLOOD UREA NITROGEN 2019-12-15 19:00:00 Yenifer Reyes MD ELECTROLYTE PANEL 2019-12-15 19:00:00 Yenifer Reyes MDo n SERUM CREATININE 2019-12-15 19:00:00 Yenifer Reyes MD .GLOMERULAR FILTRATION RATE 2019-12-15 19:00:00 Yenifer Reyes MD CALCIUM LEVEL TOTAL 2019-12-15 19:00:00 Yenifer Reyes MD ALBUMIN LEVEL 2019-12-15 19:00:00 Yenifer Reyes MD ALKALINE PHOSPHATASE 2019-12-15 19:00:00 Yenifer Reyese rson ALANINE AMINOTRANSFERASE 2019-12-15 19:00:00 Yenifer Reyes MD ASPARTATE AMINOTRANSFERASE 2019-12-15 19:00:00 Yenifer Reyes TOTAL PROTEIN 2019-12-15 19:00:00 Yenifer Reyes MD FRACTIONATED BILIRUBIN 2019-12-15 19:00:00 Yenifer Reyes MD derson XR SHOULDER 2+ VW RIGHT 2019-12-02 14:37:19 Gregory Pollock [facility] FREE LAMBDA LIGHT CHAIN 2019-10-06 22:18:00 Yenifer Reyes MD nderson IMMUNOFIXATION 2019-10-06 22:18:00 Yenifer Reyes MD ELECTROPHORESIS HEPATITIS C VIRUS ANTIBODY 2019-10-06 22:18:00 Yenifer Reyes HEPATITIS B SURFACE 2019-10-06 22:18:00 Yenifer Reyes MD ANTIBODY, SERUM URIC ACID 2019-10-06 22:18:00 Yenifer Reyes MD LACTATE DEHYDROGENASE 2019-10-06 22:18:00 Yenifer Reyes erson MAGNESIUM LEVEL 2019-10-06 22:18:00 Yenifer Reyes MD PHOSPHORUS LEVEL 2019-10-06 22:18:00 Yenifer Reyes MD HGB ELECTROPHORESIS CASCADE 2019-10-06 22:18:00 Yenifer Reyes MD C REACTIVE PROTEIN 2019-10-06 22:18:00 Yenifer Reyes MD on PARIETAL CELL IGG 2019-10-06 22:18:00 Yenifer Reyes MD ANTIBODIES INTRINSIC FACTOR BLOCKING 2019-10-06 22:18:00 Yenifer Reyes MD ANTIBODY, SERUM CELIAC DISEASE COMPREHEN 2019-10-06 22:18:00 Yenifer Reyes MD CASCD THYROID STIMULATING HORMONE 2019-10-06 22:18:00 Yenifer Reyes MD ANTINUCLEAR ANTIBODY HEP-2 2019-10-06 22:18:00 Yenifer Reyes SUBSTRATE IGG Results CBC 2019-10-06 22:18:00 Yenifre Reyes MD MANUAL DIFFERENTIAL 2019-10-06 22:18:00 Yenifer Reyes MD son GLUCOSE LEVEL 2019-10-06 22:18:00 Yenifer Reyes MD ELECTROLYTE PANEL 2019-10-06 22:18:00 Yenifer Reyes MD SERUM CREATININE 2019-10-06 22:18:00 Yenifer Reyes MD .GLOMERULAR FILTRATION RATE 2019-10-06 22:18:00 Yenifer Reyes MD CALCIUM LEVEL TOTAL 2019-10-06 22:18:00 Yenifer Reyes MD son ALBUMIN LEVEL 2019-10-06 22:18:00 Yenifer Reyes MD ALKALINE PHOSPHATASE 2019-10-06 22:18:00 Yenifer Reyes MD rson ALANINE AMINOTRANSFERASE 2019-10-06 22:18:00 Yenifer Reyes MD ASPARTATE AMINOTRANSFERASE 2019-10-06 22:18:00 Yenifer Reyes TOTAL PROTEIN 2019-10-06 22:18:00 Yenifer Reyes MD FRACTIONATED BILIRUBIN 2019-10-06 22:18:00 Yenifer Reyes MDson PROTEIN ELECTROPHORESIS, 2019-10-06 22:18:00 Yenifer Reyes MD SERUM BLOOD UREA NITROGEN 2019-10-06 22:18:00 Yenifer Reyes MD Aaron son FREE KAPPA/FREE LAMBDA 2019-10-06 22:18:00 Yenifer Reyes MD derson RATIO TMP HCVAB INTERP 2019-10-06 22:18:00 Yenifer Reyes MD .DR. SUDHAKAR NORRIS PATH REVIEW 2019-10-06 22:18:00 Yenifer Reyes COMPLETE BLOOD COUNT W/ 2019-10-06 22:18:00 Yenifer Reyes MD DIFFERENTIAL COMPREHENSIVE METABOLIC 2019-10-06 22:18:00 Yenifer Reyes MD PANEL FERRITIN LVL 2019-10-06 22:18:00 Yenifer Reyes MD FOLATE LEVEL 2019-10-06 22:18:00 Yenifer Reyes MD RETICULOCYTE COUNT 2019-10-06 22:18:00 Yenifer Reyes MD on AUTOMATED PROTHROMBIN TIME 2019-10-06 22:18:00 Yenifer Reyes MD TRANSFERRIN 2019-10-06 22:18:00 Yenifer Reyes MD IRON LEVEL 2019-10-06 22:18:00 Yenifer Reyes MD VITAMIN B12 LEVEL 2019-10-06 22:18:00 Yenifer Reyes MD PARTIAL THROMBOPLASTIN TIME 2019-10-06 22:18:00 Yenifer Reyes MD METHYLMALONIC ACID 2019-10-06 22:18:00 Yenifer Reyes MD on QUANTATIVE, SERUM COVID-19 (SARS-COV-2) 2019-10-04 19:53:00 Yenifer Reyes MD And enmanuelon PCR-ASYMPTOMATIC Plan of Care Planned Activity Planned Date Details Comments Source Future Scheduled 2023-02-07 65+ PNEUMOCOCCAL [place] [facility] Test 00:00:00 VACCINE (2 of 2) [code = 65+ PNEUMOCOCCAL VACCINE (2 of 2)] Future Scheduled 2020-11-12 INFLUENZA VACCINE Mateus ackerman [facility] Test 00:00:00 [code = INFLUENZA VACCINE] Future Scheduled 2004 [facility] S[facility]ENING [code = BREAST CANCER SCREENING] Future Scheduled 2004 COLONOSCOPY SCREENING [place] [facility] Test 00:00:00 [code = COLONOSCOPY SCREENING] Future Scheduled 2004 SHINGLES VACCINES (#1) [place] [facility] Test 00:00:00 [code = SHINGLES VACCINES (#1)] Future Scheduled 1975-11-16 Screening for [facility]rea Me [facility]odist Test 00:00:00 malignant neoplasm of cervix (procedure) [code = 456675963] Future Scheduled 1972 Hepatitis C screening [place] [facility] Test 00:00:00 (procedure) [code = 008466802] Future Scheduled 1970 COVID-19 VACCINE (1) [facility]ie ston [facility] Test 00:00:00 [code = COVID-19 VACCINE (1)] Future Scheduled 1964 DIABETES: RETINAL EYE [place] [facility] Test 00:00:00 EXAM [code = DIABETES: RETINAL EYE EXAM] Future Scheduled 1964 DIABETIC FOOT EXAM [place] [facility] Test 00:00:00 [code = DIABETIC FOOT EXAM] Future Scheduled 1964 URINE MICROALBUMIN [place] [facility] Test 00:00:00 [code = URINE MICROALBUMIN] Encounters Start End Encounter Admission Attending Care Care Encounter Source Date/Time Date/Time Type Type Clinicians Facility Department ID 2020-08-10 2020-08-10 Telephone AKBAR Neely [id number] 00:00:00 00:00:00 [facility] [id number] [place] [id number] Professio [phone] [place] [address] [address] 2020-08-09 2020-08-09 Refill Florinda [facility] [id number] 00:00:00 00:00:00 [facility] [id number] [place] [id number] Professio [phone] [place] [address] [address] 2020-08-09 2020-08-09 Refill Florinda, [facility] [id number] 00:00:00 00:00:00 [facility] [id number] [place] [id number] Professio [phone] [place] 0[address] 2020-07-27 2020-07-27 Office Rivka [facility] [id number] 09:07:34 09:44:01 Visit [facility] [id number] [place] [id number] Professio [phone] nal 0[address] 2020-01-06 2020-01-06 Outpatient GREGORY POLLOCK [facility] [id number] [place] 00:00:00 00:00:[address] 2019-12-15 2019-12-15 Outpatient EL MUSUNURU, MDA MDA [id number] 14:28:05 14:28:05 ANANDAJO Balaji o n 2019-12-15 2019-12-15 Outpatient EL MUSUNURU, MDA MDA [id number] 13:59:53 14:11:39 YENIFER Balaji o n 2019-12-08 2019-12-08 Outpatient EL MUSUNURU, MDA MDA [id number] 00:00:00 00:00:00 YENIFER Balaji o n 2019-12-02 2019-12-02 Outpatient GREGORY POLLOCK [facility] [id number] [place] 00:00:00 00:00:[address] 2019-12-02 2019-12-02 Outpatient GREGORY POLLOCK [facility] [id number] [place] 00:00:00 00:00:[address] 2019 2019 Outpatient GREGORY POLLOCK [facility] [id number] [place] 00:00:00 00:00:[address] 2019-11-03 2019-11-03 Outpatient EL MUSUNURU, MDA MDA [id number] 00:00:00 00:00:00 YENIFER Balaji o n 2019-11-02 2019-11-02 Outpatient EL MUSUNURU, MDA MDA [id number] 11:04:49 11:04:49 ANANDAJO Balaji o n 2019-10-27 2019-10-28 Outpatient EL MUSUNURU, MDA MDA [id number] 14:04:02 09:59:15 TEJO Balaji o n 2019-10-20 2019-10-20 Outpatient EL MUSUNBERNARDU, MDA MDA [id number] 00:00:00 00:00:00 YENIFER Carpio o n 2019-10-19 2019-10-19 Outpatient EL MUSUNBERNARDU, MDA MDA [id number] 14:01:57 16:41:09 YENIFER Carpio o n 2019-10-13 2019-10-13 Outpatient EL MUSUNBERNARDU, MDA MDA [id number] 11:38:55 14:16:11 YENIFER Carpio o n 2019-10-06 2019-10-06 Outpatient EL MUSUNBERNARDU, MDA MDA [id number] 16:51:52 16:56:40 YENIFER Mojicaers o n 2019-10-06 2019-10-06 Outpatient EL MUSUNBERNARDU, MDA MDA [id number] 15:28:24 15:28:24 YENIFER Carpio o n 2019-10-04 2019-10-04 Outpatient EL ERIC, MDA MDA [id number] 14:45:10 14:47:15 YENIFER richards n Results Test Description Test Time Test Comments Results Result [facility] e Comments XR Shoulder 2+ 2019-11-14 [facility], [place] Vw Right [address] 14:46:02 12/02/2019 2:49 PM CDT EXAMINATION: XR SHOULDER 2 VW RIGHTCLINICAL HISTORY: M25.511 Pain in right shoulder, shoulder painCOMPARISON: None.IMPRESSION:There is no evidence of acute right shoulder fracture or dislocation. Mild acromioclavicular osteoarthritis.[id number] COVID-19 (SARS-CoV-2) PCR-Asymptomatic 2019-10-05 09:46:1 3 Test Item Value Reference Range Interpretation Comme nts COVID19 (SARS CoV-2) Not Detected Not Detected This te st is a qualitative Result (test code = reverse- transcriptase polymerase 44774) chain reaction (RT-PCR) developed for the [employer]AS [facility] system and intended fo r the detection of SARS CoV-2 RNA in human nasopharyngeal specimens from patients who me et COVID-19 clinical and/or epidemiological criteria. This assay has been approved by the FDA for use only under Emergency Use Authorization (EUA) in labora tories that have been CLIA-certi fied to perform moderate-comple xity and high-complexity tests. The performance starr racteristics of this assay were verified by the Microbiology La boratory at [facility]. Results must be interpr eted within the context of all relevant clinical and laboratory findings and should not form the so le basis for a diagnosis or tr eatment decision.It Account Manager al controls are included to ass ess for possible amplification i nhibitors. If inhibition is d etected, testing is repeated and if inhibition is confirmed the s pecimen is resulted as "Invalid". "Inconclusive" results are due to partial amplification o f SARS-CoV-2 targets. When t his occurs, results are confirmed b y repeat testing before issuing an "Inconclusive" result. When a n "Invalid" or "Inconclusive" results occur, it is recommended to wait a minimum of 3 days befor e submitting a new specimen for te sting if clinically indicated. COVID19 SARS Source TAKER AWAY Swab (test code = 56036) COVID19 SARS Indication New Patient (test code = 97396) MD Canales
[2020-08-16 21:14] LABS: Absolute Lymphocytes (CBC) 2.7 K/uL (0.7-4.9); Basophils % 0.3 % (0-1.3); Hematocrit 36.9 % (36.0-45.0); Lymphocytes % 31.8 % (15.3-44.8); MPV 9.1 fL (7.6-11.3); RBC Red Blood Cell Count 4.72 M/uL (3.86-4.86)
[2020-08-16 21:31] LABS: Albumin 3.4 g/dL (3.4-5.0); Bilirubin Direct 0.1 mg/dL (0-0.2); Bilirubin Total 0.4 mg/dL (0.2-1.0); Protein, Total 8.1 g/dL (6.4-8.2)
[2020-08-16] MEDS ORDERED: MORPHINE 2 MG/ML SYR ONE (21:32)
[2020-08-16] MEDS ORDERED: ONDANSETRON 4 MG/2 ML VIAL ONE (21:32)
[2020-08-16] MEDS ORDERED: NA CHLORIDE 0.9% 500 ML ONE (21:32)
[2020-08-16 22:02] LABS: Urine Blood Negative (Negative); Urine Glucose Negative (Negative); Urine Protein 1+ (Negative); Urine Specific Gravity >=1.030 (1.005-1.030)
[2020-08-16] MEDS ORDERED: levoFLOXacin 250 MG TAB ONE (22:54)
[2020-08-16] MEDS ORDERED: levoFLOXacin 500 MG TAB ONE (22:55)
[2020-08-16] MEDS ORDERED: CIPROFLOXACIN HCL 500 MG TAB ONE (22:57)
[2020-08-16] MEDS ORDERED: METRONIDAZOLE 500mg IVPB 500 MG/100 ML BAG IV ONE (22:58)
[2020-08-16 23:15] LABS: Urine Bacteria <20 /HPF (<20); Urine RBC <5 /HPF (NONE SEEN)
--- NOTE | 2020-08-16 23:23 | EDPHYS ---
Physician Documentation [facility] Name: Amy Montalvo Age: 64 yrs Sex: Female : 1955 Arrival Date: 08/16/2020 Time: 15:06 Bed 30 Private MD: ED Physician Les Garcia HPI: 08/16 20:25 This 64 yrs old Black Female presents to ER via Ambulatory with complaints of Ear Pain, cp Headache, Abdominal Pain. 20:25 The patient presents with pain, that is acute. The complaints affect the right ear. cp 20:25 Onset: The symptoms/episode began/occurred 2 day(s) ago. Associated signs and symptoms: cp Pertinent positives: headache, Pertinent negatives: cough, rhinorrhea, sinus trouble, sore throat, vertigo, tooth pain. 20:25 The patient presents with abdominal pain in the left upper quadrant, in the left lower cp quadrant. 20:25 Onset: The symptoms/episode began/occurred 2 day(s) ago. cp 20:25 The symptoms do not radiate. Associated signs and symptoms: Pertinent negatives: blood cp in stools, constipation, diarrhea, dysuria, fever, vomiting. The symptoms are described as sharp. Modifying factors: the symptoms are aggravated by movement, pressure. Severity of pain: in the emergency department the pain is unchanged despite home interventions. Historical: - Allergies: 16:01 Dilaudid; ca1 16:01 Flagyl; ca1 16:01 Lisinopril; ca1 16:01 PENICILLINS; ca1 16:01 Demerol; ca1 - PMHx: 16:01 Diabetes - NIDDM; Hyperlipidemia; Hypertension; Diverticulitis; Sleep Apnea; ca1 - PSHx: 16:01 ; Bowel resection; ectopic ; ca1 - Immunization history:: Client reports receiving the 2nd dose of the Covid vaccine, Client reports receiving the 1st dose of the Covid vaccine, Pneumococcal vaccine is up to date, Flu vaccine is up to date. - Social history:: Smoking status: Patient denies any tobacco usage or history of. ROS: 20:30 Constitutional: Negative for body aches, chills, fever, poor PO intake. cp 20:30 Eyes: Negative for injury, pain, redness, and discharge. cp 20:30 Cardiovascular: Negative for chest pain, edema, palpitations. 20:30 Respiratory: Negative for cough, shortness of breath, wheezing. 20:30 Abdomen/GI: Positive for abdominal pain, nausea, diarrhea, Negative for vomiting, constipation. 20:30 Back: Negative for pain at rest, pain with movement. 20:30 : Negative for urinary symptoms. 20:30 Skin: Negative for rash. cp 20:30 Neuro: Positive for headache, Negative for altered mental status, dizziness, weakness. 20:30 All other systems are negative. cp Exam: 20:35 Constitutional: The patient appears in no acute distress, alert, awake, cp non-diaphoretic, non-toxic, well developed, well nourished. 20:35 Head/Face: Normocephalic, atraumatic. cp 20:35 Eyes: Periorbital structures: appear normal, Conjunctiva: normal, no exudate, no injection, Sclera: no appreciated abnormality, Lids and lashes: appear normal, bilaterally. 20:35 ENT: External ear(s): pain with movement, that is mild, of the pinna of right ear and right ear canal, Ear canal(s): swelling, that is minimal, of the right canal, TM's: dullness, bilaterally, Examination of the other ear shows no obvious abnormality, Nose: is normal, Mouth: Lips: moist, Oral mucosa: moist, Posterior pharynx: Airway: no evidence of obstruction, patent. 20:35 Neck: ROM/movement: is normal, is supple, without pain, no range of motions limitations, no meningismus, Lymph nodes: no appreciated lymphadenopathy. 20:35 Chest/axilla: Inspection: normal. 20:35 Cardiovascular: Rate: normal, Rhythm: regular. 20:35 Respiratory: the patient does not display signs of respiratory distress, Respirations: normal, no use of accessory muscles, no retractions, labored breathing, is not present, Breath sounds: are clear throughout, no decreased breath sounds. 20:35 Abdomen/GI: Inspection: abdomen appears normal, Bowel sounds: active, all quadrants, Palpation: soft, in all quadrants, moderate abdominal tenderness, in the epigastric area, left upper quadrant and left lower quadrant, rebound tenderness, is not appreciated, involuntary guarding, is not appreciated. 20:35 Back: pain, is absent, ROM is normal. 20:35 Skin: cellulitis, is not appreciated, no rash present. 20:35 Neuro: Orientation: to person, place \T\ time. Mentation: is normal, Motor: moves all fours, strength is normal. Vital Signs: 15:58 BP 123 / 84; Pulse 92; Resp 16 S; Temp 97.6(TE); Pulse Ox 97% on R/A; Weight 95.25 kg ca1 (R); Height 5 ft. 7 in. (170.18 cm) (R); Pain 7/10; 18:44 BP 124 / 87; Pulse 91; Resp 16 S; Pulse Ox 98% on R/A; ca1 15:58 Body Mass Index 32.89 (95.25 kg, 170.18 cm) ca1 MDM: 20:08 Patient medically screened. cp 21:00 Differential diagnosis: otitis media, otitis externa, ruptured TM, foreign body, cp cerumen impaction, colitis, diverticulitis, cholecystitis. 22:40 Data reviewed: vital signs, nurses notes, lab test result(s), radiologic studies, CT cp scan. 23:21 Counseling: I had a detailed discussion with the patient and/or guardian regarding: the cp historical points, exam findings, and any diagnostic results supporting the discharge/admit diagnosis, lab results, radiology results, the need for outpatient follow up, an immigration manager, to return to the emergency department if symptoms worsen or persist or if there are any questions or concerns that arise at home. 23:21 Response to treatment: the patient's symptoms have markedly improved after treatment, cp Pain improved with meds. Patient tolerating po meds and fluids. Will discharge to home for continued monitoring. 08/16 20:21 Order name: Basic Metabolic Panel; Complete Time: 21:45 cp 08/16 21:45 Interpretation: Normal except: GLUC 174; GFR 66. cp 08/16 20:21 Order name: CBC with Diff; Complete Time: 21:45 cp 08/16 21:45 Interpretation: Normal except: HGB 11.9; MCV 78.1; MCH 25.3; RDW 17.2. cp 08/16 20:21 Order name: Hepatic Function; Complete Time: 21:45 cp 08/16 20:21 Order name: Lipase; Complete Time: 21:45 cp 08/16 20:21 Order name: Urine Microscopic Only; Complete Time: 23:27 cp 05/05 23:27 Interpretation: Normal except: SQEPI 10-20. cp 08/16 22:02 Order name: Urine Dipstick-Ancillary; Complete Time: 22:29 EDMS 08/16 20:22 Order name: CT Head Brain wo Cont cp 08/16 20:22 Order name: CT Abd/Pelvis - IV Contrast Only cp 08/16 20:21 Order name: IV Saline Lock; Complete Time: 23:21 cp 08/16 20:21 Order name: Labs collected and sent; Complete Time: 23:21 cp 08/16 20:21 Order name: Urine Dipstick-Ancillary (obtain specimen); Complete Time: 22:22 cp 08/16 22:30 Order name: PO challenge; Complete Time: 22:46 cp Administered Medications: 22:22 Drug: morphine 2 mg Route: IVP; Site: right forearm; iw 22:22 Drug: NS 0.9% 500 ml Route: IV; Rate: bolus; Site: right forearm; iw 22:23 Drug: Zofran (Ondansetron) 4 mg Route: IVP; Site: right forearm; iw 22:35 CANCELLED (Physician Discretion): LevaQUIN (levofloxacin) 750 mg PO once cp 22:45 Drug: Cipro (ciprofloxacin) 500 mg Route: PO; tl1 23:00 Follow up: Response: No adverse reaction iw 22:46 Drug: metroNIDAZOLE 500 mg Volume: 100 ml; Route: IVPB; Infused Over: 30 mins; Site: tl1 right forearm; Disposition: 08/17 06:16 Co-signature as Attending Physician, Les Garcia MD. ma2 Disposition: 08/16/20 23:22 Discharged to Home. Impression: Otitis externa in other diseases classified elsewhere, right ear, Diverticulitis of large intestine without perforation or abscess without bleeding. - Condition is Stable. - Discharge Instructions: High-Fiber Diet, Diverticulitis, Otitis Externa. - Prescriptions for Zofran 4 mg Oral Tablet - take 1 tablet by ORAL route every 12 hours As needed; 20 tablet. Cipro 500 mg Oral Tablet - take 1 tablet by ORAL route every 12 hours for 7 days; 14 tablet. Metronidazole 500 mg Oral Tablet - take 1 tablet by ORAL route every 8 hours; 30 tablet. Protonix 40 mg Oral Tablet - take 1 tablet by ORAL route once daily; 30 tablet. Tramadol 50 mg Oral Tablet - take 1 tablet by ORAL route every 8 hours as needed; 12 tablet. Ciprodex 0.3- 0.1 % Otic Drops, Suspension - instill 4 drop by OTIC route every 12 hours for 7 days , for ears ONLY; 1 Container. - Medication Reconciliation Form, Thank You Letter, Antibiotic Education, Prescription Opioid Use form. - Follow up: Private Physician; When: 2 - 3 days; Reason: Recheck today's complaints. - Problem is new. - Symptoms have improved. Signatures: Dispatcher [employer] EDMS Mya Vickers RN RN iw Aster Harris RN RN tl1 Akira Patel PA PA cp Les Garcia MD MD ma2 Radha Correa RN RN ca1 Corrections: (The following items were deleted from the chart) 08/16 22:35 22:30 LevaQUIN (levofloxacin) 750 mg PO once ordered. cp angel 23:53 23:22 08/16/2020 23:22 Discharged to Home. Impression: Otitis externa in other diseases iw classified elsewhere, right ear; Diverticulitis of large intestine without perforation or abscess without bleeding. Condition is Stable. Forms are Medication Reconciliation Form, Thank You Letter, Antibiotic Education, Prescription Opioid Use. Follow up: Private Physician; When: 2 - 3 days; Reason: Recheck today's complaints. Problem is new. Symptoms have improved. cp
--- NOTE | 2020-08-16 23:23 | ER ---
Nurse's Notes [facility] Name: Amy Montalvo Age: 64 yrs Sex: Female : 1955 Arrival Date: 08/16/2020 Time: 15:06 Bed 30 Private MD: Diagnosis: Otitis externa in other diseases classified elsewhere, right ear;Diverticulitis of large intestine without perforation or abscess without bleeding Presentation: 08/16 15:58 Chief complaint: Patient states: R ear pain radiating to the R side of face down to the ca1 neck, worse today. LUQ and LLQ pain been unbearable for the last [address] Austin for the abdominal pains. Coronavirus screen: Client denies travel out of the [place] in the last 14 days. At this time, the client does not indicate any symptoms associated with coronavirus-19. Ebola Screen: Patient negative for fever greater than or equal to 101.5 degrees Fahrenheit, and additional compatible Ebola Virus Disease symptoms Patient denies exposure to infectious person. Patient denies travel to an Ebola-affected area in the 21 days before illness onset. No symptoms or risks identified at this time. Initial Sepsis Screen: Does the patient meet any 2 criteria? No. Patient's initial sepsis screen is negative. Does the patient have a suspected source of infection? No. Patient's initial sepsis screen is negative. Risk Assessment: Do you want to hurt yourself or someone else? Patient reports no desire to harm self or others. Onset of symptoms was August 16, 2020. 15:58 Method Of Arrival: Ambulatory ca1 15:58 Acuity: FARIDA 3 ca1 Triage Assessment: 22:50 General: Appears in no apparent distress. Behavior is calm, cooperative. iw Historical: - Allergies: 16:01 Dilaudid; ca1 16:01 Flagyl; ca1 16:01 Lisinopril; ca1 16:01 PENICILLINS; ca1 16:01 Demerol; ca1 - PMHx: 16:01 Diabetes - NIDDM; Hyperlipidemia; Hypertension; Diverticulitis; Sleep Apnea; ca1 - PSHx: 16:01 ; Bowel resection; ectopic ; ca1 - Immunization history:: Client reports receiving the 2nd dose of the Covid vaccine, Client reports receiving the 1st dose of the Covid vaccine, Pneumococcal vaccine is up to date, Flu vaccine is up to date. - Social history:: Smoking status: Patient denies any tobacco usage or history of. Screenin:52 Abuse screen: Denies threats or abuse. Denies injuries from another. Nutritional iw screening: No deficits noted. Tuberculosis screening: No symptoms or risk factors identified. Fall Risk IV access (20 points). Assessment: 22:50 General: Appears in no apparent distress. Behavior is calm, cooperative. Pain: iw Complains of pain in left lower quadrant and left upper quadrant and epigastric area and right ear canal and pinna of right ear and right ear. Neuro: Level of Consciousness is awake, alert, obeys commands, Oriented to person, place, time, situation, Moves all extremities. Full function. GI: Reports lower abdominal pain, upper abdominal pain. EENT: Ear canal. Derm: Skin is intact, is healthy with good turgor. Musculoskeletal: Range of motion: intact in all extremities. Vital Signs: 15:58 BP 123 / 84; Pulse 92; Resp 16 S; Temp 97.6(TE); Pulse Ox 97% on R/A; Weight 95.25 kg ca1 (R); Height 5 ft. 7 in. (170.18 cm) (R); Pain 7/10; 18:44 BP 124 / 87; Pulse 91; Resp 16 S; Pulse Ox 98% on R/A; ca1 15:58 Body Mass Index 32.89 (95.25 kg, 170.18 cm) ca1 ED Course: 15:06 Patient arrived in ED. as 16:01 Triage completed. ca1 16:01 Arm band placed on right wrist. ca1 20:03 Akira Patel PA is PHCP. cp 20:03 Les Garcia MD is Attending Physician. cp 20:35 yMa Vickers, AGUEDA is Primary Nurse. iw 21:55 CT Head Brain wo Cont In Process Unspecified. EDMS 22:03 CT Abd/Pelvis - IV Contrast Only In Process Unspecified. EDMS 22:50 Patient has correct armband on for positive identification. iw 23:52 No provider procedures requiring assistance completed. IV discontinued, intact, iw bleeding controlled, No redness/swelling at site. Pressure dressing applied. Administered Medications: 22:22 Drug: morphine 2 mg Route: IVP; Site: right forearm; iw 22:22 Drug: NS 0.9% 500 ml Route: IV; Rate: bolus; Site: right forearm; iw 22:23 Drug: Zofran (Ondansetron) 4 mg Route: IVP; Site: right forearm; iw 22:35 CANCELLED (Physician Discretion): LevaQUIN (levofloxacin) 750 mg PO once cp 22:45 Drug: Cipro (ciprofloxacin) 500 mg Route: PO; tl1 23:00 Follow up: Response: No adverse reaction iw 22:46 Drug: metroNIDAZOLE 500 mg Volume: 100 ml; Route: IVPB; Infused Over: 30 mins; Site: tl1 right forearm; Outcome: 23:22 Discharge ordered by MD. cp 23:52 Discharged to home ambulatory. iw 23:52 Condition: good 23:52 Discharge instructions given to patient, Instructed on discharge instructions, follow up and referral plans. medication usage, Demonstrated understanding of instructions, follow-up care, medications, Prescriptions given X 4. 23:53 Patient left the ED. iw Signatures: Dispatcher [employer] EDMS Milagros Lopez Irene, RN RN Aster Harris RN RN tl1 Akira Patel PA PA cp Radha Correa RN RN ca1
[2020-08-16 23:59] VITALS: TEMP 97.6
[2020-08-17 00:37] VITALS: BP 124/87; O2SAT 98
--- NOTE | 2020-08-17 11:07 | RAD REPORT ---
EXAM DESCRIPTION: CT Head Without Intravenous Contrast CLINICAL HISTORY: The patient is 64 years old and is Female; HEADACHE TECHNIQUE: Axial computed tomography images of the head/brain without intravenous contrast. Sagitt al and coronal reformatted images were created and reviewed. This CT exam was performed using one o r more of the following dose reduction techniques: automated exposure control, adjustment of the mA and/or kV according to patient size, and/or use of iterative reconstruction technique. COMPARISON: CT of the head June 06, 2013 FINDINGS: BRAIN: Unremarkable. The da silva-white matter differentiation is preserved . No hemorrhag e. No significant white matter disease. No edema. No extra-axial fluid collections. VENTRICLES: Unremarkable. No ventriculomegaly. BONES/JOINTS: No acute fracture. SOFT TISSUES: Unremarkable. SINUSES: Unremarkable as visualized. No acute sinusitis. MASTOID AIR CELLS: Unremarkable as visualized. No mastoid effusion. ORBITS: Phthisis bulbi of the right globe is noted. IMPRESSION: No acute intracranial findings. Electronically signed by: Arpita Peres MD 08/16/2020 10:07 PM CDT Due to temporary technical issues with the PACS/Fluency reporting system, reports are being signed by the in house radiologist without review as a courtesy to ensure prompt reporting. The interpreting r adiologist is fully responsible for the content of the report.
--- NOTE | 2020-08-17 11:13 | RAD REPORT ---
EXAM DESCRIPTION: CT Abdomen and Pelvis With Intravenous Contrast CLINICAL HISTORY: The patient is 64 years old and is Female; ABD PAIN TECHNIQUE: Axial computed tomography images of the abdomen and pelvis with intravenous contrast. S agittal and coronal reformatted images were created and reviewed. This CT exam was performed using one or more of the following dose reduction techniques: automated exposure control, adjustment of t he mA and/or kV according to patient size, and/or use of iterative reconstruction technique. COMPARISON: CT of the abdomen and pelvis August 26, 2019 FINDINGS: LUNG BASES: Unremarkable. No mass. No consolidation. HEART: Trace pericardial effusion is present. ABDOMEN: LIVER: The liver is enlarged and mildly fatty. GALLBLADDER AND BILE DUCTS: No calcified stones. No ductal dilation. PANCREAS: No ductal dilation. No mass. SPLEEN: A small hyperattenuating focus within the spleen is present and unchanged from prior exa m. ADRENALS: Unremarkable. No mass. KIDNEYS AND URETERS: Unremarkable. The kidneys enhance symmetrically. No obstructing renal or ur eteral calculus is seen. No hydronephrosis or hydroureter. No perinephric fluid or stranding. STOMACH AND BOWEL: The stomach is distended with food contents. The small bowel is normal in akash iber. Stool is present throughout colon. Scattered colonic diverticula are present. Mild inflammatory stranding involving the distal transverse and proximal descending colon is present. There is no kim l obstruction. Postsurgical change of the sigmoid colon is present. PELVIS: APPENDIX: The appendix is normal in caliber without surrounding inflammation. BLADDER: The bladder is not well distended. REPRODUCTIVE: Unremarkable as visualized. ABDOMEN and PELVIS: INTRAPERITONEAL SPACE: Unremarkable. No free air. No significant fluid collection. BONES/JOINTS: Minimal degenerative change of the spine is present. SOFT TISSUES: The soft tissues are normal. VASCULATURE: Atherosclerosis of the vasculature is present. The vessels are normal in caliber. No abdominal aortic aneurysm. LYMPH NODES: Unremarkable. No enlarged lymph nodes. IMPRESSION: Findings suggest mild acute distal transverse and proximal descending colon diverticulit is. No evidence of diverticular abscess. Electronically signed by: Arpita Peres MD 08/16/2020 10:11 PM CDT Due to temporary technical issues with the PACS/Fluency reporting system, reports are being signed by the in house radiologist without review as a courtesy to ensure prompt reporting. The interpreting r adiologist is fully responsible for the content of the report.
== END 2020-08-16 23:53 | disposition home or self-care (01) ==
LOC: ER 15:05
DX: H60.91 Unspecified otitis externa, right ear (principal); K57.32 Diverticulitis of large intestine without perforation or abscess without bleeding; I10 Essential (primary) hypertension; Z88.0 Allergy status to penicillin; Z88.5 Allergy status to narcotic agent; Z88.6 Allergy status to analgesic agent; Z88.8 Allergy status to other drugs, medicaments and biological substances
CPT/HCPCS: 85025; 80048; 36415; 80076; 83690; 70450; 74177; 96375; 96374; 99283; Q9967; J2270; J7040; J2405; 81003; 81015

== ENCOUNTER 2020-10-03 06:52 | Day surgery (SDC) | payer OTHER ==
[2020-10-03] MEDS ORDERED: NA CHLORIDE 0.9% 1,000 ML ONE (07:21)
[2020-10-03] MEDS ORDERED: LIDOCAINE 1% MPF 30 ML VIAL ONE (07:47)
[2020-10-03] MEDS ORDERED: GLYCOPYRROLATE 0.2 MG/ML SYR ONE (07:47)
[2020-10-03] MEDS ORDERED: propofoL 200 MG/20 ML VIAL IV ONE ×2 (07:47)
[2020-10-03] MEDS ORDERED: Phenylephrine HCl 10 MG/ML 1 ML VIAL ONE (07:47)
[2020-10-03 09:03] VITALS: TEMP 97.6
[2020-10-03 09:34] VITALS: BP 112/70; O2SAT 94
--- NOTE | 2020-10-03 19:03 | OP ---
Surgeon: Colt Gomez MD Procedure Performed: Esophagogastroduodenoscopy. Indication For Procedure: Left upper quadrant pain, history of esophageal varices. Plan For Anesthesia: Monitored anesthesia care. Complexity: High due to the patient's significant comorbidities, COPD, coronary artery disease. Technique: After obtaining informed consent from the patient and explaining risks and complications which include, but are not limited to bleeding, infection, perforation, and anesthesia complication, the patient was placed in the left lateral position. Sedation was given. From then on, the scope wa s advanced into the esophagus and carefully guided up to the second portion of the duodenum. After t he completion of examination, scope and equipment were withdrawn and procedure terminated in a safe m jocelyn. Findings: Esophagus: Small grade 1 varices seen in the mid and distal esophagus. Stomach: Mild patchy erythema seen in the body and antrum. Biopsies taken. Duodenum: The bulb and second portion appeared normal. Complications: None. Tolerance To Anesthesia: Excellent. Postoperative Diagnoses: Esophageal varices, gastritis. Plan: 1.Await pathology results. 2.Follow up in the GI clinic in 2 weeks. 3.Continue PPI. 4.Repeat EGD in 1-2 years. US/MODL Voice ID: [id number] Report ID: [id number]
== END 2020-10-03 09:30 | disposition home or self-care (01) ==
LOC: OR 06:52
PROVIDERS: ATTEND Internal Medicine Gastroenterology
PROC: 0DB78ZX Excision of Stomach, Pylorus, Via Natural or Artificial Opening Endoscopic, Diagnostic (ICD-10-PCS; 2020-10-03)
PROC: 0DB68ZX Excision of Stomach, Via Natural or Artificial Opening Endoscopic, Diagnostic (ICD-10-PCS; principal; 2020-10-03 08:00)
DX: A04.8 Other specified bacterial intestinal infections (principal); I85.00 Esophageal varices without bleeding; K29.50 Unspecified chronic gastritis without bleeding; J44.9 Chronic obstructive pulmonary disease, unspecified; I25.10 Atherosclerotic heart disease of native coronary artery without angina pectoris
CPT/HCPCS: 88312; 82947; 88305; 43239; J2704; J2370; J7030

== ENCOUNTER 2021-01-31 06:18 | Day surgery (SDC) | payer OTHER ==
[2021-01-29 15:32] LABS: Absolute Lymphocytes (CBC) 2.5 K/uL (0.7-4.9); Basophils % 0.7 % (0-1.3); Hematocrit 39.5 % (36.0-45.0); Lymphocytes % 32.8 % (15.3-44.8); MPV 8.7 fL (7.6-11.3); RBC Red Blood Cell Count 5.32 M/uL (3.86-4.86)
[2021-01-29 15:51] LABS: Albumin 3.6 g/dL (3.4-5.0); Bilirubin Direct 0.1 mg/dL (0-0.2); Bilirubin Total 0.5 mg/dL (0.2-1.0); Potassium 4.4 mmol/L (3.5-5.1); Protein, Total 7.9 g/dL (6.4-8.2)
--- NOTE | 2021-01-29 15:51 | RAD REPORT ---
EXAM DESCRIPTION: RAD - Chest Pa And Lat (2 Views) - 01/29/2021 3:17 pm CLINICAL HISTORY: PRE-OP, pending gallbladder surgery COMPARISON: Portable May 26 TECHNIQUE: Frontal and lateral views of the chest were obtained. FINDINGS: The lungs are clear. Lung markings are similar comparison. Diaphragmatic eventration is p resent. Hilar regions not clearly different from comparison. Heart size is normal and central vascula ture is within normal limits. No pleural effusion or pneumothorax seen. No acute bony finding noted . No aortic abnormality. IMPRESSION: No acute cardiopulmonary process.
--- NOTE | 2021-01-30 16:46 | EKG ---
Test Date: 2021-01-29 Test Time: 14:01:02 International Marketing Intern: MAGALYS MEASUREMENT RESULTS: Intervals: Rate: 88 CT: 160 QRSD: 82 QT: 380 QTc: 459 [place]: P: 71 CT: 160 QRS: 51 T: 62 INTERPRETIVE STATEMENTS: Normal sinus rhythm Normal ECG Compared to ECG 08/27/2019 07:46:05 No significant changes Electronically Signed On 01-30-21 16:41:24 CDT by Partha Walker
[2021-01-31] MEDS ORDERED: CIPROFLOXACIN 400mg IV 400 MG/200 ML BAG IV ONE (07:23)
[2021-01-31] MEDS ORDERED: NA CHLORIDE 0.9% 1,000 ML ONE (07:23)
[2021-01-31] MEDS ORDERED: propofoL 200 MG/20 ML VIAL IV ONE (07:35)
[2021-01-31] MEDS ORDERED: ROCURONIUM 50 MG/5 ML VIAL IV ONE (07:36)
[2021-01-31] MEDS ORDERED: GLYCOPYRROLATE 0.2 MG/ML SYR ONE ×2 (07:36)
[2021-01-31] MEDS ORDERED: LIDOCAINE 2% MPF 5 ML VIAL ONE (07:36)
[2021-01-31] MEDS ORDERED: FENTANYL CITR 250 MCG/5 ML ONE (07:37)
[2021-01-31] MEDS ORDERED: MIDAZOLAM HCL 2 MG/2 ML INJ ONE (07:39)
[2021-01-31] MEDS ORDERED: ONDANSETRON 4 MG/2 ML VIAL ONE ×3 (07:42→11:24)
[2021-01-31] MEDS ORDERED: CELECOXIB 100 MG CAPSULE ONE (07:43)
[2021-01-31] MEDS ORDERED: ACETAMINOPHEN 500 MG TAB ONE (07:44)
--- NOTE | 2021-01-31 08:45 | P.BOP ---
Preoperative diagnosis: RUQ abd pain, Biliary dyckinesia, Acute cholecystitis Postoperative diagnosis: same, intrabdominal adhesions Primary procedure: 1. Laparoscopic Cholecystectomy Secondary procedure: 2, Laparoscopic lysis of adhesions Estimated blood loss: <10cc Specimen: gb Findings: see dicta Anesthesia: General Complications: None Transferred to: Recovery Room Condition: Good
[2021-01-31] MEDS ORDERED: FENTANYL CITR 100 MCG/2 ML ONE (09:17)
[2021-01-31] MEDS ORDERED: TRAMADOL 37.5mg/APAP 325mg PER TAB ONE (10:41)
[2021-01-31 11:33] VITALS: BP 138/80; TEMP 97; O2SAT 98
--- NOTE | 2021-01-31 13:18 | DS ---
Date of Discharge: 01/31/2021 Diagnoses: Right upper quadrant abdominal pain, biliary dyskinesia, acute cholecystitis, intraabdomi nal adhesions. Procedures: Laparoscopic cholecystectomy, laparoscopic lysis of adhesions. Disposition: Home. Activity: As tolerated. No heavy lifting. Plan: Follow up in my office in 1 week. Call for appointment at [phone]. Keep area dry for 48 smliey rs, then may shower. Keep Steri-Strips intact. Medications: See orders. GRETCHEN/ALVARO Voice ID: [id number] Report ID: [id number]
--- NOTE | 2021-01-31 13:34 | OP ---
Date of Procedure: 01/31/2021 Surgeon: Herb Lopez MD Preoperative Diagnoses: Right upper quadrant abdominal pain, biliary dyskinesia, acute cholecystitis . Postoperative Diagnoses: Right upper quadrant abdominal pain, biliary dyskinesia, acute cholecystiti s plus extensive intraabdominal adhesions. Procedures: Laparoscopic cholecystectomy and laparoscopic lysis of adhesions. Estimated Blood Loss: Less than 10 mL. Specimen: Gallbladder. Findings: The patient has a midline incision from previous surgeries. We even have to start first t rocar in the epigastric region since much of the abdomen has a big incision. Once we put the cameras in, we noticed extensive intraabdominal adhesions in the right upper quadrant and the gallbladder ca nnot be addressed until these adhesions are out, so we are to be able to put the rest of the trocars. So, we proceeded to do the extensive lysis of adhesions. Anesthesia: General. Complications: None. Indication: This is the case of a female, who comes to us with right upper quadrant abdominal pain, biliary dyskinesia, mainly postprandial. The patient explained the benefits, alternatives, and risks of laparoscopic possible open cholecystectomy, which include, but not limited to infection, bleeding , damage to adjacent structures, anesthesia complication, cholelithiasis, bile leak, pancreatitis, LA , and even . She also understands this may not relieve any symptoms. She might need more than one surgical intervention. We also understand the limitations we have with this large midline incisi on with the position of the trocars may be different from the routine one and also we may encounter t hese adhesions. She understood and still wants to proceed with the surgery. Procedure In Detail: The patient was brought to the operating room, placed in supine position. Anes thesia was done without complication. Abdominal area was prepped and draped in usual sterile fashion . Marcaine 0.5% was injected for local anesthetic after time-out was called. First incision was don e in epigastric area. The only area that I can see is a virgin, and it still may have some adhesions in that area, but at least we minimize the chances. So, we opened the skin, found the fascia and op ened under direct vision, carefully opened the peritoneum with the Lucy trocar and Vicryl #1 placed inside the fascia. Lucy trocar was carefully introduced. Pneumoperitoneum was obtained. After t hat, I proceeded then to take a look at the area where we suspect we have multiple adhesions. The up per abdomen and right upper quadrant not allowing full visualization of the gallbladder and not allow ing us to put the rest of the trocar, so we have to put the gallbladder on hold for a little bit and proceed with lysis of adhesions with the help of a Bovie cauterizer and scissors. We spent about larissa f the time just doing the part of the lysis of adhesions and we were able to at least remove the righ t upper quadrant and epigastric area enough to allowing me to put the trocar in the supraumbilical re gion and we already have 2 more trocars placed under direct visualization in the right upper quadrant . There were dense adhesions down the pelvis. It is not the area that we were looking at this momen t right now. In the future, she might address that issue once we have consent just in case enterotom ies are cause. At that moment, I proceeded to place a grasper in the fundus of the gallbladder, anot her grasper in the infundibulum, retracting the gallbladder in the inferolateral fashion, exposing th e triangle of Calot and obtaining critical view. Cystic duct and cystic artery were clearly isolated , freed circumferentially and a connection between those and the gallbladder were clearly identified. I proceeded to ligate those by using at least 3 clips proximal, 1 clip distal, ligation in middle. Same was done with the cystic artery. No bile leak. No bleeding. The gallbladder was removed from liver using Bovie cauterizer and removed from abdominal cavity using EndoCatch through the epigastri c incision. The area was inspected once again. No bile leak, no bleeding. At that moment, I procee ded to remove the trocars under direct vision. Deflated pneumoperitoneum. Closed the epigastric tro car with #1 Vicryl. Irrigated the subcutaneous tissue. Closed the subcutaneous tissue with 3-0 honing machine set up operator maite and skin in a subcuticular fashion with 3-0 chromic. Sponge count and instrument counts correct. The patient tolerated the procedure well. The patient was sent to recovery in stabl e condition. GRETCHEN/ALVARO Voice ID: [id number] Report ID: [id number]
== END 2021-01-31 11:55 | disposition home or self-care (01) ==
LOC: OR 06:18
PROVIDERS: ATTEND Surgery
PROC: 0DNW4ZZ Release Peritoneum, Percutaneous Endoscopic Approach (ICD-10-PCS; 2021-01-31)
PROC: 0FT44ZZ Resection of Gallbladder, Percutaneous Endoscopic Approach (ICD-10-PCS; principal; 2021-01-31 07:30)
DX: K81.1 Chronic cholecystitis (principal); K82.8 Other specified diseases of gallbladder; K66.0 Peritoneal adhesions (postprocedural) (postinfection); R10.11 Right upper quadrant pain
CPT/HCPCS: 93005; 85025; 80048; 36415; 82150; 82947 ×2; 80076; 88304; 83690; 71046; 47562; 49329; J2704; J2250; J3010 ×2; J7030; J2405 ×3; J0744

== ENCOUNTER 2022-07-09 07:08 | Day surgery (SDC) | payer OTHER ==
[2022-07-09] MEDS ORDERED: NA CHLORIDE 0.9% 1,000 ML ONE (07:37)
[2022-07-09] MEDS ORDERED: LIDOCAINE 1% MPF 30 ML VIAL ONE (08:41)
[2022-07-09] MEDS ORDERED: propofoL 200 MG/20 ML VIAL IV ONE (08:41)
[2022-07-09 10:03] VITALS: BP 154/89; TEMP 97.3; O2SAT 95
== END 2022-07-09 09:55 | disposition home or self-care (01) ==
LOC: OR 07:08
PROVIDERS: ATTEND Internal Medicine Gastroenterology
PROC: 0DB78ZX Excision of Stomach, Pylorus, Via Natural or Artificial Opening Endoscopic, Diagnostic (ICD-10-PCS; principal; 2022-07-09 08:30)
DX: K29.70 Gastritis, unspecified, without bleeding (principal); I85.10 Secondary esophageal varices without bleeding; K74.60 Unspecified cirrhosis of liver; I10 Essential (primary) hypertension; E11.9 Type 2 diabetes mellitus without complications; D50.9 Iron deficiency anemia, unspecified; E66.9 Obesity, unspecified; Z68.29 Body mass index [BMI] 29.0-29.9, adult; Z87.891 Personal history of nicotine dependence; Z79.899 Other long term (current) drug therapy; Z88.0 Allergy status to penicillin; Z88.3 Allergy status to other anti-infective agents
CPT/HCPCS: 82947; 88305; 88312; J2001; J2704; J7030

== ENCOUNTER 2022-08-28 11:16 | Inpatient (IN) | payer OTHER ==
--- OUTSIDE RECORDS SUMMARY | 2022-08-28 11:33 | XMS REPORT | Clinical Summary ---
:1955 Author Organization [facility] MD [facility] Center Address [address] [place] [address] Care Team Providers Name Role Phone Kristin Reyes MD Primary Care Provider Allergies Active Allergy Reactions Severity Noted Date Comments Amlodipine 10/06/2019 Metronidazole Hcl 10/06/2019 Hydromorphone 10/06/2019 Lisinopril 10/06/2019 Losartan 10/06/2019 Penicillins 10/06/2019 Medications Medication Sig Dispensed Refills Start Date End Date Status magnesium 200 mg tab magnesium 0 Active acetaminophen-codeine Take 1 tablet by 0 05/18/2019 Active (TYLENOL #3) 300 mg-30 mouth as needed. mg tablet acetaminophen-codeine TAKE 1 TABLET BY 0 05/19/2019 Active (TYLENOL #3) 300 mg-30 MOUTH EVERY 4 mg tablet HOURS NEEDED FOR PAIN SCALE 4 6 albuterol USE 1 VIAL IN 0 02/04/2019 Activ e (PROVENTIL,VENTOLIN) NEBULIZER EVERY 2.5 mg/3 mL (0.083%) 4 HOURS nebulizer solution NEEDED FOR WHEEZING FOR SHORTNESS OF BREATH atropine 1% ophthalmic atropine 1 % eye 0 Active solution drops atorvastatin (LIPITOR) Take 10 mg by 0 Active 10 mg tablet mouth. benzonatate (TESSALON) TAKE 1 CAPSULE 0 06/11/2019 Active 200 mg capsule BY MOUTH THREE TIMES DAILY NEEDED FOR COUGH cyanocobalamin (VITAMIN Take 500 mcg by 0 06/04/2017 Active B-12) 500 mcg tablet mouth. FOLBEE 2.5-25-1 mg tab TAKE 1 TABLET BY 0 10/02/2019 Active MOUTH ONCE DAILY cyclobenzaprine 0 08/19/2019 Act jake (FLEXERIL) 5 mg tablet RESTASIS 0.05 % 0 11/25/2018 Act jake ophthalmic emulsion dapagliflozin (Farxiga) Farxiga 10 mg tablet 0 Active 10 mg tab 1 tablet daily dicyclomine (BENTYL) 20 Take 20 mg by 0 05/20/2019 Active mg tablet mouth. dulaglutide (TRULICITY) Inject 1.5 mg 0 01/19/2019 Active 1.5 mg/0.5 mL injection under the skin. VITAMIN D2 1,250 mcg TAKE ONE CAPSULE 0 08/29/2019 Active (50,000 unit) capsule BY MOUTH EVERY 2 WEEKS WITH FOOD fluticasone propionate Inhale 2 sprays 0 06/11/2019 Active (FLONASE) 50 mcg/spray into each nasal spray nostril. glimepiride (AMARYL) 2 0 11/09/2018 Active mg tablet metFORMIN (GLUCOPHAGE) TAKE 1 TABLET BY 0 09/14/2019 Active 1000 mg tablet MOUTH TWICE DAILY WITH MEALS metoprolol succinate TAKE 1 TABLET BY 0 09/07/2019 Active (TOPROL XL) 25 mg 24 hr MOUTH ONCE DAILY tablet NIFEdipine (ADALAT CC) TAKE 1 TABLET BY 0 12/09/2018 Active 60 MG 24 hr tablet MOUTH ONCE DAILY omeprazole (PriLOSEC) TAKE 1 CAPSULE 0 11/02/2018 Active 40 MG capsule BY MOUTH ONCE DAILY ondansetron DISSOLVE 1 0 05/19/2019 Active (ZOFRAN-ODT) 4 mg TABLET IN MOUTH disintegrating tablet EVERY 8 HOURS NEEDED FOR NAUSEA AND VOMITING tiZANidine (ZANAFLEX) 2 TAKE 1 2 TO 1 0 07/09/2019 Active mg tablet (ONE HALF TO ONE) TABLET BY MOUTH EVERY 8 HOURS NEEDED FOR MUSCLE SPASM OR PAIN coenzyme Q10 100 mg Take 100 mg by 0 06/11/2019 Active capsule mouth. repaglinide (PRANDIN) Take 0.5 mg by 0 Active 0.5 mg tablet mouth 2 (two) times a day before meals. ferrous sulfate 325 (65 Take 1 tablet 180 tablet 1 12/15/2019 Active FE) MG EC (325 mg) by tabletIndications: mouth at Other iron deficiency bedtime. anemia Active Problems Patient Care Coordination Note Formatting of this note might be differe nt from the original. Patient tested for Covid-19 10/04/2019 No t Detected. Problem Noted Date Vitamin B12 deficiency 10/10/2019 Other iron deficiency anemia 10/06/2019 Surgical History Surgery Date Site/Laterality Comments COLONOSCOPY SECTION, LOW TRANSVERSE BOWEL RESECTION 04/14/2006 - 04/13/2007 ECTOPIC SURGERY Medical History Medical History Date Comments Hypertension Functional visual loss Tooth disorder Chronic bronchitis Pneumonia Gastric reflux Polyp of colon Anemia Arthritis Diabetes mellitus Herpes zoster Hyperlipidemia Asthma Vitamin B12 deficiency (non anemic) Iron deficiency anemia Latent tuberculosis Obstructive sleep apnea syndrome Osteoarthritis Diverticulosis of colon Family History Medical History Relation Name Comments Lung cancer Brother Diabetes Father Hypertension Father Leukemia Maternal Grandfather Dementia Mother Thyroid cancer Sister Relation Name Status Comments Brother Father Maternal Grandfather Mother Sister Social History Tobacco Use Types Packs/Day Years Used Date Smoking Tobacco: Former Cigarettes Quit : 10/05/1989 Smokeless Tobacco: Never Alcohol Use Standard Drinks/Week Comments Not Currently 0 (1 standard drink = 0.6 oz pure alcoho l) Sex Assigned at Date Recorded Female 10/04/2019 11:22 AM CDT Obstetrics History Para Term AB IAB SAB Ectopic Multiple Living Live Births 2 2 Date Outcome GA Total Labor/2nd/3rd Weight Sex Delivery Anes PTL Brandy A 1 A5 Name Clin Labor Last Filed Vital Signs Not on file Plan of Treatment Health Maintenance Due Date Last Done Comments COVID-19 Vaccination (#1) 05/18/1956 Results Not on fileafter 08/28/2021 Care Teams [employer] Supervisor Relationship Specialty Start Date End Date Kristin Reyes MD PCP - General Medical Oncology 09/22/19 [address] [place] [address]
--- OUTSIDE RECORDS SUMMARY | 2022-08-28 12:10 | XMS REPORT | Continuity of Care Document ---
:1955 Author Organization [facility] t Address [address] [place] [address] [place] [id number] Care Team Providers Name Role Phone Rubi Vaelncia Primary Care Physician Unavailable RENA ROLLINS Attending Clinician Unavailable RENA ROLLINS Attending Clinician Unavailable RAZ TINEO Attending Clinician Unavailable Patsy Trent PA-C Attending Clinician KATIE LIN Attending Clinician Unavailable Unknown, Attending Attending Clinician Unavailable PATSY TRENT Attending Clinician Unavailable Scarlett Swanson MD Attending Clinician [phone] Mikhail Perez LVN Attending Clinician Unavailable Lab, Ang - Db Attending Clinician Unavailable Raz Gloria Attending Clinician Rama Cunningham Attending Clinician Unavailable MARGARITA PEACOCK Attending Clinician Unavailable Margarita Fermin Attending Clinician Doctor Unassigned, [address] Attending Clinician Unavailable TONNY MARTINEZ Attending Clinician Unavailable Jony Wilson Attending Clinician JONY ROY Attending Clinician Unavailable Rena Rollins DO Attending Clinician Riley FERRARO, Katie Kiser Attending Clinician Ruby ROMEO, Flori Kent Attending Clinician Unavailable AKILAH SAENZ Attending Clinician Unavailable Nikolay PAC, Danae Berrios Attending Clinician Akilah Saenz DO Attending Clinician OMAR MCGARRY Attending Clinician Unavailable Mcgarry KEYMODULE ASSEMBLY SUPERVISOR, Omar Attending Clinician TYLER MONTEJO Attending Clinician Unavailable Tyler Robertson Attending Clinician CIERRA ROBLERO Attending Clinician Unavailable Radiology Attending Clinician Unavailable RADIOLOGY Attending Clinician Unavailable Shreya FNP, Tracy Paez Attending Clinician TRACY CASH Attending Clinician Unavailable Team, [facility] Attending Clinician Unavailwinter e Provider, [facility] Attending Clinician Unavailable RISSA BAKER Attending Clinician Unavailable Rissa Baker MD Attending Clinician Belkys Joshua RN Attending Clinician Unavailable TraciMisael Lorenzo Attending Clinician MATEO HUSAIN Attending Clinician Unavailable Annie FERRARO, Rubi Marinelli Attending Clinician TARSHA JEONG Attending Clinician Unavailable Jean-Paul KEYMODULE ASSEMBLY SUPERVISOR, Tarsha Matthews Attending Clinician [phone] COLIN LEONARDO Attending Clinician Unavailable Rickey Alston MD N.SJesus Attending Clinician [phone] Rohan Hughes MD Attending Clinician [phone] Marisela Jaquez CRNA Attending Clinician [phone] ROXY STEINBERG Attending Clinician Unavailable Roxy Steinberg MD Attending Clinician Colin Leonardo MD Attending Clinician Flores PAC, Johnnie Hunt Attending Clinician Nurse, [facility] Attending Clinician Unavailable Isra ROMEO, Krys Talbot Attending Clinician Unavailable GUS STEWART Attending Clinician Unavailable Santy KEYMODULE ASSEMBLY SUPERVISOR, Shinta Attending Clinician Pat FERRARO, Gus Attending Clinician Amador CHARLTON, Marcie T Attending Clinician Unavailable Lisha FERRARO, Maeto Kent Attending Clinician Eamon FERRARO, Barrington Attending Clinician RUBI VALENCIA Attending Clinician Unavailable OGUNLANA, BRE A Attending Clinician Unavailable Ogunlana DPM, Bre A Attending Clinician [phone] Kailey Bland MD Attending Clinician KAILEY BLAND Attending Clinician Unavailable KAILEY BLAND Attending Clinician Unavailable Therapist, [facility] Attending Clinician Unavailable Floyd Man MD Attending Clinician FLOYD MAN Attending Clinician Unavailable Bárbara Gallo RN Attending Clinician Unavailable Only, Ang Db Test Attending Clinician Unavailable Omaghomi KEYMODULE ASSEMBLY SUPERVISOR, Omayemi Attending Clinician OMAGHOMI, OMAYEMI Attending Clinician Unavailable Green KEYMODULE ASSEMBLY SUPERVISOR, Asaf Attending Clinician VAIBHAV ASAF Attending Clinician Unavailable Vaccine, Ang Db Cbc Fam Attending Clinician Unavailable EUGENIE SMALLS Attending Clinician Unavailable Herb Corey MD Attending Clinician HERB COREY Attending Clinician Unavailable Ibikunle KEYMODULE ASSEMBLY SUPERVISOR, Folusho F Attending Clinician Vladislav ROMEO, Leticia T Attending Clinician Unavailable Therapy, [facility] Infusion Attending Clinician Unavailable Sebastian FERRARO, Pal Marinelli Attending Clinician Holland FERRARO, Mark Magana Attending Clinician Yonathan Bailey MD Attending Clinician Lab, [facility] Fam Pob I Attending Clinician Unavailable Serina COLLIER, Eugenie Ybarra Attending Clinician [phone] Erich FERRARO, Gregory Attending Clinician ALXESANDER TORRES Attending Clinician Unavailable Pob, [facility] Main Attending Clinician Unavailable Daniel Aguayo Attending Clinician Nurse, [facility] Attending Clinician Unavailable Provider, [facility] Attending Clinician Unavailable Nayana Haskins Attending Clinician YENIFER RIDDLE Attending Clinician Unavailable 2, [facility] Lab Attending Clinician Unavailable CHELITA MELCHOR Attending Clinician Unavailable Chelita Rey Attending Clinician [phone] Bandar Nascimento MD, Davina Davis Attending Clinician Unavailable Raju_P Attending Clinician Unavailable Katia Estrada Attending Clinician KATIA EMMANUEL Attending Clinician Unavailable Juan Daniel Cornelius MD Attending Clinician JOHNNIE FLORES Attending Clinician Unavailable 1, [facility] Lab Attending Clinician Unavailable AKILAH SAENZ Admitting Clinician Unavailable Akilah Saenz DO Admitting Clinician RAZ TINEO Admitting Clinician Unavailable TYLER MONTEJO Admitting Clinician Unavailable RICKEY ALSTON Admitting Clinician Unavailable ROXY STEINBERG Admitting Clinician Unavailable GUS STEWART Admitting Clinician Unavailable Gus Stewart MD Admitting Clinician CHELITA MELCHOR Admitting Clinician Unavailable RUBI VALENCIA Admitting Clinician Unavailable Rajjohan_Paulino Admitting Clinician Unavailable KATIA EMMANUEL Admitting Clinician Unavailable JOHNNIE FLORES Admitting Clinician Unavailable Payers Payer Name Policy Type Policy Number Effective Date Expiration Date S eamon HUMANA CHOICE [id number] 2020 00:00:00 [facility] [place] [facility] [id number] 2019 00:00:00 MEDICARE PART A [id number] 2019 00:00:00 AETNA [facility] [id number] 2013 00:00:00 AETNA O [id number] 2013 00:00:00 Problems Condition Condition Condition Status Onset Resolution Last Treating Co mments Source Name Details Category Date Date Treatment Clinician Date At risk At risk Disease Active Univers for falls for falls 4-28 ity of 00:00: [place] [facility] Unspecifie Unspecifie Disease Active U nivers d d 4-28 ity of abnormalit abnormalit [place] ies of Medical gait and gait and Branch mobility mobility Forgetfuln Forgetfuln Disease Active U nivers ess ess 4-28 ity of 00:00: [place] [address] [facility] Branch Shortness Shortness Disease Active Uni vers of breath of breath 2-23 ity of 00:00: [place] [address] Medical Branch Elevated Elevated Disease Active Unive rs brain brain 2-23 ity of natriureti natriureti [place] c peptide c peptide [address] [facility] (BNP) (BNP) Branch level level COVID-19 COVID-19 Disease Active Unive rs 2-23 ity of 00:00: [place] [address] Medical Branch HTN HTN Disease Active Univers (hypertens (hypertens 2-23 it y of ion) ion) 00:00: [place] [facility] Upper back Upper back Disease Active 2021-04 U nivers pain on pain on 2-16 ity of left side left [place] 00[place] [facility] Pure Pure Disease Active Univers hyperchole hyperchole 7-16 it y of sterolemia sterolemia [place] Diabetes Diabetes Disease Active Unive rs mellitus mellitus 7-16 ity of 00:00: [place] [facility] Cramp in Cramp in Disease Active Unive rs lower leg lower leg 7-16 ity of associated associated 00:[place] with rest with rest [address] [facility] Branch Cardiovasc Cardiovasc Disease Active U nivers ular ular 7-16 ity of system system 00:00: [place] problem problem 00 Medical Branch Gastritis, Gastritis, Disease Active U nivers Helicobact Helicobact 6-20 it y of er pylori er pylori 00:00: [place] [facility] Chronic Chronic Disease Active Univers low back low back 6-07 ity of pain pain 00:00: [place] [address] Medical Branch Weakness Weakness Disease Active 2022-0 Unive rs 6-07 ity of 00:00: [place] 00 Medical Branch Hair loss Hair loss Disease Active 2020-04 Uni vers 2-26 ity of 00:00: [place] [facility] Chronic Chronic Disease Active 2020-04 Univers bilateral bilateral 2-26 ity of low back low back 00:00: [place] pain pain 00 Medical without without Branch sciatica sciatica Arthritis Arthritis Disease Active 2020-04 Uni vers of lumbar of lumbar 2-21 ity of spine spine 00:00: [place] [facility] Sinus Sinus Disease Active 2020-04 Univers tachycardi tachycardi 0-11 it y of a a 00:00: [place] [facility] Chronic Chronic Disease Active Univers fatigue fatigue 1-09 ity of 00:00: [place] [facility] History of History of Disease Active U nivers COVID-19 COVID-19 1- ity of 00:00: [place] 00 Medical Branch Vitamin Vitamin Disease Active 2020-0 Univers B12 B12 6-28 ity of deficiency deficiency 00:[place]: [place] [facility] Other iron Other iron Disease Active 2020-0 U nivers deficiency deficiency 6-24 it y of anemia anemia 00:00: [place] 00 MD [facility] Other iron Other iron Disease Active 2020-0 U laminers deficiency deficiency 6-24 it y of anemia anemia 00:00: [place] 00 Medical Branch Diastolic Diastolic Disease Active 2019- Uni vers dysfunctio dysfunctio 2-15 it y of n n 00:00: [place] [facility] Pulmonary Pulmonary Disease Active 2019- Uni vers hypertensi hypertensi 2-15 it y of on on 00:00: [place] [facility] Dyslipidem Dyslipidem Disease Active 2019- U nivers ia ia 1-02 ity of 00:00: [place] 00 Medical [facility] Hypoxia Hypoxia Disease Active 2019- Univers 0-22 ity of 00:00: [place] [facility] Neuropathy Neuropathy Disease Active 2019-0 U nivers of both of both 8- ity of feet feet 00:00: [place] 00 Medical Branch Myalgia Myalgia Disease Active 2019- Univers 8-01 ity of 00:00: [place] [facility] Uncontroll Uncontroll Disease Active 2019-0 U nivers ed daytime ed daytime 7-03 it y of somnolence somnolence 00:00: [place] [facility] Nonobstruc Nonobstruc Disease Active 2019 U nivers tive tive 7-03 ity of atheroscle atheroscle 00:00: [place] rosis of rosis of 00 Medica l coronary coronary Branch artery artery Intoleranc Intoleranc Disease Active U nivers e of e of 7-03 ity of continuous continuous 00:00: [place] positive positive 00 Medica l airway airway Branch pressure pressure (CPAP) (CPAP) ventilatio ventilatio n n Mild Mild Disease Active 2017-04 Univers persistent persistent 0-22 it y of asthma asthma 00:00: [place] without without 00 Medical complicati complicati Br anch on on FRANDY FRANDY Disease Active 2017-04 Univers (obstructi (obstructi 0-08 it y of ve sleep ve sleep 00:00: [place] apnea) apnea) 00 Medical Branch SOTO SOTO Disease Active 2017-04 Univers (dyspnea (dyspnea 0-07 ity of on on 00:00: [place] exertion) exertion) 00 [facility] akash Branch Multiple Multiple Disease Active Unive rs thyroid thyroid 6-25 ity of nodules nodules 00:00: [place] 00 Medical Branch Left Left Disease Active Univers shoulder shoulder 6-24 ity of pain, pain, 00:00: [place] unspecifie unspecifie 00 Me dical d d Branch chronicity chronicity Osteoarthr Osteoarthr Disease Active U nivers itis of itis of 6-22 ity of left left 00:00: [place] shoulder shoulder 00 Medica l Branch Neck pain Neck pain Disease Active Uni vers 4-16 ity of 00:00: [place] 00 Medical Branch Chronic Chronic Disease Active Univers antral antral 1-25 ity of gastritis gastritis 00:[place] 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 1-25 ity of 00:00: [place] 00 Medical Branch Osteoarthr Osteoarthr Disease Active 2016-04 U nivers itis itis 0-19 ity of 00:00: [place] 00 Medical Branch Blurry Blurry Disease Active 2016-04 Univers vision, vision, 0-12 ity of left eye left eye 00:00: [place] 00 Medical Branch Sicca, Sicca, Disease Active 2016-04 Univers unspecifie unspecifie 0-12 it y of d type d type 00:00: [place] 00 Medical Branch Vitamin B6 Vitamin B6 Disease Active 2016-04 U nivers deficiency deficiency 0-07 it y of 00:00: Medical Branch Iron Iron Disease Active 2016-04 Univers deficiency deficiency 0-05 it y of 00:00: [place] [facility] B12 B12 Disease Active 2016-04 Univers deficiency deficiency 0-05 it y of 00:00: [place] [facility] Elevated Elevated Disease Active 2016-04 Unive rs sed rate sed rate 0-05 ity of 00:00: [place] [facility] Abdominal Abdominal Disease Active Uni vers adhesions adhesions 8-25 ity of 00:00: [place] [facility] Chronic Chronic Disease Active Univers abdominal abdominal 8-25 ity of pain pain 00:00: [place] [facility] Obesity Obesity Disease Active Univers (BMI (BMI 4-25 ity of 30-39.9) 30-39.9) 00:00: [place] [facility] Pneumonia Pneumonia Disease Active Uni vers 4-25 ity of 00:00: [place] [facility] Vitamin D Vitamin D Disease Active Uni vers deficiency deficiency 4-06 it y of 00:00: [place] 00 Medical Branch Hypocalcem Hypocalcem Disease Active U nivers ia ia 4- ity of 00:00: [place] [facility] Hypomagnes Hypomagnes Disease Active U nivers emia emia 4- ity of 00:00: [place] [facility] Severe Severe Disease Active Univers obstructiv obstructiv 3-08 it y of e sleep e sleep 00:00: [place] apnea apnea Medical Branch Chronic Chronic Disease Active Univers constipati constipati 2-05 it y of on on 00:00: [place] [facility] HLD HLD Disease Active Univers (hyperlipi (hyperlipi 2-05 it y of demia) demia) 00:00: [place] 00 Medical Branch GERD GERD Disease Active Univers (gastroeso (gastroeso 2-04 it y of phageal phageal 00:00: [place] reflux reflux 00 Medical disease) disease) Branch 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 2-01 ity of diabetes diabetes 00:00: [place] mellitus mellitus 00 Medica l without without Branch complicati complicati on, on, without without long-term long-term current current use of use of insulin insulin Essential Essential Disease Active Uni vers hypertensi hypertensi 2-01 it y of on on 00:00: [place] 00 Medical Branch Allergies, Adverse Reactions, Alerts Allergy Allergy Status Severity Reaction(s) Onset Inactive Treating Comm ents Source Name Type Date Date Clinician PENICILL DRUG Active Hives Univers IN INGREDI 3-16 ity of 00:00: [place] [facility] Penicill Drug Active Hives Univers in Allergy 3-16 ity of 00:00: Medical Branch Metronid Drug Active Unknown - Unive rs azole Allergy See comments 09-03 ity of 00:00: Medical Branch METRONID DRUG Active Unknown-Cmnt Un wendy AZOLE INGREDI 09-03 ity of 00:00: [place] 00 Medical Branch Ciproflo Propensi Active Rash 2019- Univer s xacin ty to 0-01 ity of adverse 00:00: [place] reaction 00 Medical s Branch CIPROFLO DRUG Active ITCHING 2019- Univers XACIN INGREDI 0-01 ity of 00:00: [place] 00 Medical Branch Hydromor Propensi Active Hallucinatio 2020-0 Methodi phone ty to ns 8-03 st adverse 00:00: [facility] reaction 00 l s to drug Amlodipi Propensi Active 2020-0 Univer s ne ty to 6-24 ity of adverse 00:00: [place] reaction 00 [facility] Metronid Propensi Active 2020-0 Univer s azole ty to 6-24 ity of Hcl adverse 00:00: [place] reaction 00 MD [facility] Hydromor Propensi Active 2020-0 Univer s phone ty to 6-24 ity of adverse 00:00: [place] reaction 00 MD [facility] Lisinopr Propensi Active 2020-0 Univer s il ty to 6-24 ity of adverse 00:00: [place] reaction 00 [facility] Losartan Propensi Active 2020-0 Univer s ty to 6-24 ity of adverse 00:00: [place] reaction 00 MD [facility] Penicill Propensi Active 2020-0 Univer s ins ty to 6-24 ity of adverse 00:00: [place] reaction 00 MD [facility] HYDROMOR DRUG Active Hallucinates 2019-0 Un wendy PHONE INGREDI 6-24 ity of 00:00: [place] 00 Medical Branch Hydromor Drug Active Hallucinatio 2019-0 Un wendy phone Allergy ns 6-24 ity of 00:00: [place] 00 Medical Branch Amlodipi Propensi Active Swelling 2018- Univ ers ne ty to 2-15 ity of adverse 00:00: [place] reaction 00 Medical s Branch AMLODIPI DRUG Active Swelling 2018- Univer s NE INGREDI 2-15 ity of 00:00: [place] 00 Medical Branch Losartan Propensi Active Swelling 2017- Meth mirian ty to 18 st adverse 00:00: [facility] reaction 00 l s to drug Losartan Propensi Active Swelling 2017- Univ ers ty to 2-18 ity of adverse 00:00: [place] reaction 00 Medical s Branch LOSARTAN DRUG Active Swelling 2017-04 Univer s INGREDI 2-18 ity of 00:00: [place] 00 Medical Branch Hydromor Propensi Active Hallucinatio 2017- Univers phone ty to ns 0-22 ity of (Bulk) adverse 00:00: [place] reaction 00 Medical s Branch HYDROMOR DRUG Active Hallucinates 2017- Un wendy PHONE 0-22 ity of (BULK) 00:00: [place] 00 Medical Branch Lisinopr Propensi Active Swelling 2017-0 Meth mirian il ty to - st adverse 00:00: [facility] reaction 00 l s to drug Lisinopr Propensi Active Other - See 2018- U nivers il ty to comments - ity of adverse 00:00: [place] reaction 00 Medical s Branch LISINOPR DRUG Active Swelling 2017-0 Univer s IL INGREDI 5- ity of 00:00: [place] 00 Medical Branch Penicill Propensi Active Hives Method i ins ty to - st adverse 00:00: [facility] reaction 00 l s to drug Metronid Propensi Active Swelling Meth mirian azole ty to -19 st Hcl adverse 00:00: [facility] reaction 00 l s to drug Penicill Propensi Active Hives Univer s ins ty to 2-19 ity of adverse 00:00: [place] reaction 00 Medical s Branch Metronid Propensi Active Swelling 2015- Univ ers azole ty to 2-19 ity of Hcl adverse 00:00: [place] reaction 00 Medical s Branch METRONID DRUG Active Swelling Univer s AZOLE INGREDI 2-19 ity of HCL 00:00: [place] 00 Medical Branch PENICILL Drug Active Hives Univers INS Class 2-19 ity of 00:00: [place] 00 Medical Branch Penicill Propensi Active Hives Univer s ins ty to 2-19 ity of adverse 00:00: [place] reaction 00 Medical s Branch Penicill Propensi Active Hives Method i ins ty to 2-19 st adverse 00:00: [facility] reaction 00 l s to drug Penicill Propensi Active 2014-[address] [facility] [address] [facility] ty [facility] adverse 00:[facility]: Medical reaction 00 Center s Family History Family Member Diagnosis Comments Start Date Stop Date Source Natural brother Lung cancer Universi ty of [facility] Natural father Diabetes [facility] Natural father Hypertension Universi ty [facility] Maternal grandfather Leukemia Univ ersity [facility] Natural mother Dementia [facility] Natural sister Thyroid cancer Univer sity [facility] Social History Social Habit Start Date Stop Date Quantity Comments Source History SD[facility] Gender identity [facility] History of tobacco Cigarette Smoker [facility] Medical Branch History SDOH Social Unive rsity of [facility] Med ical Together Branch History SDOH Social Unive rsity of Connections [facility] Medical Branch History SDOH Social Unive rsity of [facility] Medical Membership Branch History SDOH Social Unive rsity of [facility] Medical Meetings Branch Exposure to 2022-07-30 2022-08-09 Not sure University of SARS-CoV-2 (event) 00:00:00 10:05:00 [place] [facility] History SDOH 2022-06-07 2022-06-07 1 University o f Alcohol Frequency 00:00:00 00:00:00 [place] M edical [facility] History SDOH 2022-06-07 2022-06-07 0 University o f Alcohol Std Drinks 00:00:00 00:00:00 [place] [facility] History SDOH 2022-06-07 2022-06-07 1 University o f Alcohol Binge 00:00:00 00:00:00 [place] Medic al [facility] History SDOH Social 2022-06-07 2022-06-07 5 Unive rsity of Connections Phone 00:00:00 00:00:00 [facility] edical Branch History SDOH Social 2022-06-07 2022-06-07 4 Unive rsity of Connections Living 00:00:00 00:00:00 [place] [facility] History SDOH 2022-06-07 2022-06-07 4 University o f Physical Activity 00:00:00 00:00:00 [facility] edical DPW Branch History SDNY 2022-06-07 2022-06-07 2 University o f Physical Activity 00:00:00 00:00:00 [facility] edical MPS Branch History SDOH 2022-06-07 2022-06-07 5 University o f Financial 00:00:00 00:00:00 [place] [facility] History SDNY Food 2022-06-07 2022-06-07 1 Univers ity of Worry 00:00:00 00:00:00 [place] [facility] History SDOH Food 2022-06-07 2022-06-07 1 Univers ity of Scarcity 00:00:00 00:00:00 [place] [facility] History SDOH 2022-06-07 2022-06-07 2 University o f Transport Med 00:00:00 00:00:00 [place] [facility] History SDNY 2022-06-07 2022-06-07 2 University o f Transport Non-Med 00:00:00 [facility]00 [facility] C[facility] smoked 2021-11-26 2021-11-26 Univers ity of current (pack per 00:00:00 00:00:00 [facility] [place] [facility] day) - Reported Branch Cigarette 2021-11-26 2021-11-26 University of pack-years 00:00:00 00:00:00 [facility] Branch Tobacco use and 2021-11-26 2021-11-26 Smokeless Universit y of exposure 00:00:00 00:00:00 tobacco non-user [facility] dical Branch Tobacco Comment 2021-11-26 2021-11-26 Quit about 25 Univer sity of 00:00:00 00:00:00 years ago [facility] Alcohol intake 2021-10-16 2021-10-16 [facility] 00:[facility]:00 non-drinker Hospital (finding) History of Social 2021-10-16 2021-10-[address] function 00:00:00 00:00:00 Hospital Education 2021-09-18 2021-09-18 21 [facility] 00:00:00 00:00:00 [facility] Sex Assigned At [birth year] [facility] 00:00:00 00:00:00 [facility] Smoking Status Start Date Stop Date Source Ex-smoker 2021-11-26 00:00:00 2021-11-26 00:00:00 [facility] Medications Ordered Filled Start Stop Current Ordering Indication Dosage Frequency Signature Comments Components Source Medication Medication Date Date Medication? Clinician (SIG) Name Name magnesium Yes [id number] TAKE 2 U nivers oxide 400 5-04 TABLETS BY ity of mg (241.3 00:00: MOUTH 4 [place] mg 00 TIMES Medical magnesium) DAILY Branch tablet magnesium Yes [id number] TAKE 2 U nivers oxide 400 5-04 TABLETS BY ity of mg (241.3 00:00: MOUTH 4 [place] mg 00 TIMES Medical magnesium) DAILY Branch tablet magnesium Yes [id number] TAKE 2 U nivers oxide 400 5-04 TABLETS BY ity of mg (241.3 00:00: MOUTH 4 [place] mg 00 TIMES Medical magnesium) DAILY Branch tablet magnesium Yes [id number] TAKE 2 U nivers oxide 400 5-04 TABLETS BY ity of mg (241.3 00:00: MOUTH 4 [place] mg 00 TIMES Medical magnesium) DAILY Branch tablet Insulin Yes [id number] 7U inject 7 Un wendy Detemir 4-28 Units ity of (LEVEMIR 00:00: [place]LE[place] 00 skin at Medical U-100 bedtime. Branch INSULN) 100 unit/mL (3 mL) injection NIFEdipine Yes [id number] 60mg Take 1 U nivers XL 60 mg 24 4-28 tablet by ity of hr tablet 00:00: [place] 00 the Medical morning. Branch tiZANidine Yes [id number] 2mg Take 1 U nivers 2 mg tablet 4-28 tablet by ity of 00:00: mouth [place] 00 every 6 Medical (six) Branch hours as needed for Pain (scale 4-6). dulaglutide Yes [id number] INJECT Univers (TRULICITY) 4-28 1.5MG (1 ity of 1.5 mg/0.5 00:00: PEN) [place] mL PnIj 00 SUBCUTANEO Medica l USLY EVERY Branch WEEK meloxicam Yes [id number] 7.5mg Take 1 Univers (MOBIC) 7.5 4-28 tablet by ity of mg tablet 00:00: mouth [place] 00 daily as Medical needed for Branch Pain (scale 7-10) (use sparingly due to side effects). Insulin Yes [id number] 7U inject 7 Un wendy Detemir 4-28 Units ity of (LEVEMIR 00:00: [place] FLEXTOU[place] 00 skin at Medical U-100 bedtime. Branch INSULN) 100 unit/mL (3 mL) injection NIFEdipine Yes [id number] 60mg Take 1 U nivers XL 60 mg 24 4-28 tablet by ity of hr tablet 00:00: [place] 00 the Medical morning. Branch tiZANidine Yes [id number] 2mg Take 1 [facility] nivers 2 mg tablet 4-28 tablet by ity of 00:00: mouth [place] 00 every 6 Medical (six) Branch hours as needed for Pain (scale 4-6). dulaglutide Yes [id number] INJECT [facility] (TRULICITY) 4-28 1.5MG (1 ity of 1.5 mg/0.5 00:00: PEN) [place] mL PnIj 00 SUBCUTANEO Medica l USLY EVERY Branch WEEK meloxicam Yes [id number] 7.5mg Take 1 [facility] (MOBIC) 7.5 4-28 tablet by ity of mg tablet 00:00: mouth once [place] 00 daily as Medical needed for Branch Pain (scale 7-10) (use sparingly due to side effects). Insulin Yes [id number] 7U inject 7 Un [place] Detemir 4-28 Units ity of (LEVEMIR 00:00: [place] FLEXTOUCH 00 skin at Medical U-100 bedtime. Branch INSULN) 100 unit/mL (3 mL) injection NIFEdipine Yes [id number] 60mg Take 1 U nivers XL 60 mg 24 4-28 tablet by [facility] of hr tablet 00:00: mouth [place] 00 the Medical morning. Branch tiZANidine Yes [id number] 2mg Take 1 [facility] nivers 2 mg tablet 4-28 tablet by ity of 00:00: mouth [place] 00 every 6 Medical (six) Branch hours as needed for Pain (scale 4-6). dulaglutide Yes [id number] INJECT [facility] (TRULICITY) 4-28 1.5MG (1 ity of 1.5 mg/0.5 00:00: PEN) [place] mL PnIj 00 SUBCUTANEO Medica l USLY EVERY Branch WEEK meloxicam Yes [id number] 7.5mg Take 1 [facility] (MOBIC) 7.5 4-28 tablet by ity of mg tablet 00:00: mouth once [place] 00 daily as Medical needed for Branch Pain (scale 7-10) (use sparingly due to side effects). Insulin Yes [id number] 7U inject 7 Un [place] Detemir 4-28 Units ity of (LEVEMIR 00:00: [place] FLEXTOUCH 00 skin at Medical U-100 bedtime. Branch INSULN) 100 unit/mL (3 mL) injection NIFEdipine 0 Yes [id number] 60mg Take 1 [facility] nivers XL 60 mg 24 4-28 tablet by [facility] of hr tablet 00:00: mouth [place] 00 the Medical morning. Branch tiZANidine Yes [id number] 2mg Take 1 [facility] nivers 2 mg tablet 4-28 tablet by ity of 00:00: mouth [place] 00 every 6 Medical (six) Branch hours as needed for Pain (scale 4-6). dulaglutide Yes [id number] INJECT [facility] (TRULICITY) 4-28 1.5MG (1 ity of 1.5 mg/0.5 00:00: PEN) [place] mL PnIj 00 SUBCUTANEO Medica l USLY EVERY Branch WEEK meloxicam Yes [id number] 7.5mg Take 1 [facility] (MOBIC) 7.5 4-28 tablet by ity of mg tablet 00:00: mouth once [place] 00 daily as Medical needed for Branch Pain (scale 7-10) (use sparingly due to side effects). Insulin Yes [id number] USE [facility] ers Clear, 4-28 DIRECTED ity of Disposable, 00:00: TO INJECT [place] (DROPLET 00 INSULIN Medical PEN NEEDLE) ONCE DAILY Br anch 31 gauge x 5/16" Ndle Insulin Yes [id number] 7U inject 7 Un [place] Detemir 4-28 Units it[facility] of (LEVEMIR 00:00: [place] FLEXTOUCH 00 skin at Medical U-100 bedtime. Branch INSULN) 100 unit/mL (3 mL) injection NIFEdipine Yes [id number] 60mg Take 1 [facility] nivers XL 60 mg 24 4-28 tablet by [facility] of hr tablet 00:00: mouth [place] 00 the Medical morning. Branch tiZANidine Yes [id number] 2mg Take 1 [facility] nivers 2 mg tablet 4-28 tablet by ity of 00:00: mouth [place] 00 every 6 Medical (six) Branch hours as needed for Pain (scale 4-6). dulaglutide Yes [id number] INJECT [facility] (TRULICITY) 4-28 1.5MG (1 ity of 1.5 mg/0.5 00:00: PEN) [place] mL PnIj 00 SUBCUTANEO Medica l USLY EVERY Branch WEEK meloxicam Yes [id number] 7.5mg Take 1 [facility] (MOBIC) 7.5 4-28 tablet by ity of mg tablet 00:00: mouth once [place] 00 daily as Medical needed for Branch Pain (scale 7-10) (use sparingly due to side effects). Insulin Yes [id number] USE [facility] ers Clear, 4-28 DIRECTED ity of Disposable, 00:00: TO INJECT [place] (DROPLET 00 INSULIN Medical PEN NEEDLE) ONCE DAILY Br anch 31 gauge x 5/16" Ndle Insulin 0 Yes [id number] 7U inject 7 Un [place] Detemir 4-28 Units it[facility] of (LEVEMIR 00:00: under [place] FLEXTOUCH 00 skin at Medical U-100 bedtime. Branch INSULN) 100 unit/mL (3 mL) injection NIFEdipine 2022-0 Yes [id number] 60mg Take 1 [facility] nivers XL 60 mg 24 4-28 tablet by [facility] of hr tablet 00:00: [place] the [facility] morning. Branch tiZANidine 0 Yes [id number] 2mg Take 1 [facility] nivers 2 mg tablet 4-28 tablet by ity of 00:00: mouth [place] 00 every 6 Medical (six) Branch hours as needed for Pain (scale 4-6). dulaglutide Yes [id number] INJECT [facility] (TRULICITY) 4-28 1.5MG (1 ity of 1.5 mg/0.5 00:00: PEN) [place] mL PnIj 00 SUBCUTANEO Medica l USLY EVERY Branch WEEK meloxicam Yes [id number] 7.5mg Take 1 [facility] (MOBIC) 7.5 4-28 tablet by ity of mg tablet 00:00: mouth once [place] 00 daily as Medical needed for Branch Pain (scale 7-10) (use sparingly due to side effects). Insulin Yes [id number] USE [facility] ers Clear, 4-28 DIRECTED ity of Disposable, 00:00: TO INJECT [place] (DROPLET 00 INSULIN Medical PEN NEEDLE) ONCE DAILY Br anch 31 gauge x 5/16" Ndle Insulin Yes [id number] 7U inject 7 Un [place] Detemir 4-28 Units ity of (LEVEMIR 00:00: under the [facility] FLEXTOUCH 00 skin at Medical U-100 bedtime. Branch INSULN) 100 unit/mL (3 mL) injection NIFEdipine 2022- Yes [id number] 60mg Take 1 U nivers XL 60 mg 24 4-28 tablet by [facility] of hr tablet 00:00: mouth [place] 00 the Medical morning. Branch tiZANidine 2022-0 Yes [id number] 2mg Take 1 [facility] nivers 2 mg tablet 4-28 tablet by ity of 00:00: mouth [place] 00 every 6 Medical (six) Branch hours as needed for Pain (scale 4-6). dulaglutide 0 Yes [id number] INJECT [facility] (TRULICITY) 4-28 1.5MG (1 ity of 1.5 mg/0.5 00:00: PEN) [place] mL PnIj 00 SUBCUTANEO Medica l USLY EVERY Branch WEEK meloxicam Yes [id number] 7.5mg Take 1 [facility] (MOBIC) 7.5 4-28 tablet by ity of mg tablet 00:00: mouth once [place] 00 daily as Medical needed for Branch Pain (scale 7-10) (use sparingly due to side effects). Insulin Yes [id number] USE [facility] ers Clear, 4-28 DIRECTED ity of Disposable, 00:00: TO INJECT [place] (DROPLET 00 INSULIN Medical PEN NEEDLE) ONCE DAILY Br anch 31 gauge x 5/16" Ndle Insulin Yes [id number] 7U inject 7 Un [place] Detemir 4-28 Units ity of (LEVEMIR 00:00: under [place] FLEXTOUCH 00 skin at Medical U-100 bedtime. Branch INSULN) 100 unit/mL (3 mL) injection NIFEdipine Yes [id number] 60mg Take 1 [facility] nivers XL 60 mg 24 4-28 tablet by [facility] of hr tablet 00:00: mouth [place] 00 the Medical morning. Branch tiZANidine Yes [id number] 2mg Take 1 [facility] nivers 2 mg tablet 4-28 tablet by ity of 00:00: mouth [place] 00 every 6 Medical (six) Branch hours as needed for Pain (scale 4-6). dulaglutide Yes [id number] INJECT [facility] (TRULICITY) 4-28 1.5MG (1 ity of 1.5 mg/0.5 00:00: PEN) [place] mL PnIj 00 SUBCUTANEO Medica l USLY EVERY Branch WEEK meloxicam Yes [id number] 7.5mg Take 1 [facility] (MOBIC) 7.5 4-28 tablet by ity of mg tablet 00:00: mouth once [place] 00 daily as Medical needed for Branch Pain (scale 7-10) (use sparingly due to side effects). Insulin Yes [id number] USE [facility] ers Clear, 4-28 DIRECTED ity of Disposable, 00:00: TO INJECT [place] (DROPLET 00 INSULIN Medical PEN NEEDLE) ONCE DAILY Br anch 31 gauge x 5/16" Ndle Insulin 0 Yes [id number] 7U inject 7 Un [place] Detemir 4-28 Units ity of (LEVEMIR 00:00: [place] FLEXTOUCH 00 skin at Medical U-100 bedtime. Branch INSULN) 100 unit/mL (3 mL) injection NIFEdipine Yes [id number] 60mg Take 1 [facility] nivers XL 60 mg 24 4-28 tablet by it[facility] of hr tablet 00:00: mouth [place] 00 the Medical morning. Branch tiZANidine Yes [id number] 2mg Take 1 U nivers 2 mg tablet -28 tablet by ity of 00:00: mouth [place] 00 every 6 Medical (six) Branch hours as needed for Pain (scale 4-6). dulaglutide Yes [id number] INJECT [facility] (TRULICITY) 4-28 1.5MG (1 ity of 1.5 mg/0.5 00:00: PEN) [place] mL PnIj 00 SUBCUTANEO Medica l USLY EVERY Branch WEEK meloxicam Yes [id number] 7.5mg Take 1 [facility] (MOBIC) 7.5 -28 tablet by ity of mg tablet 00:00: mouth once [place] 00 daily as Medical needed for Branch Pain (scale 7-10) (use sparingly due to side effects). Insulin Yes [id number] USE [facility] ers Clear, 4-28 DIRECTED ity of Disposable, 00:00: TO INJECT [place] (DROPLET 00 INSULIN Medical PEN NEEDLE) ONCE DAILY Br anch 31 gauge x 5/16" Ndle tiZANidine 0 2023- No [id number] 2mg Take 1 [facility] 2 mg tablet - 04-28 tablet by it y of 00:00: 00:00 mouth [place] 00 :00 every 6 Medical (six) Branch hours as needed for Pain (scale 4-6). tiZANidine 2022-0 2023- No [id number] 2mg Take 1 [facility] 2 mg tablet -28 -28 tablet by it y of 00:00: 00:00 mouth [place] 00 :00 every 6 Medical (six) Branch hours as needed for Pain (scale 4-6). azelastine 2023-0 Yes [id number] 1{spray Use 1 [facility] 137 mcg 3-30 } [place] in ity of (0.1 %) 00:00: each [place] nasal spray 00 nostril in [place] the Branch morning and 1 [place] in the evening. Use in each nostril as directed benzonatate 2022-0 Yes [id number] 100mg Take 1 [facility] (TESSALON 3-30 capsule by ity of PERLES) 100 00:00: mouth [place] mg capsule 00 every 8 Medica l (eight) Branch hours as needed for Cough. azelastine 0 Yes [id number] 1{spray Use 1 [facility] 137 mcg 3-30 } [place] in ity of (0.1 %) 00:00: each [place] [facility] [place] in the evening. Use in each nostril as directed benzonatate 2022-0 Yes [id number] 100mg Take 1 [facility] (TESSALON 3-30 capsule by ity of PERLES) 100 00:00: mouth [place] mg capsule 00 every 8 Medica l (eight) Branch hours as needed for Cough. azelastine 0 Yes [id number] 1{spray Use 1 [facility] 137 mcg 3-30 } [place] in ity of (0.1 %) 00:00: each [place] [facility] 1 [place] in the evening. Use in each nostril as directed benzonatate 2022-0 Yes [id number] 100mg Take 1 [facility] (TESSALON 3-30 capsule by ity of PERLES) 100 00:00: mouth [place] mg capsule 00 every 8 Medica l (eight) Branch hours as needed for Cough. azelastine 2022-0 Yes [id number] 1{spray Use 1 [facility] 137 mcg 3-30 } [place] in ity of (0.1 %) 00:00: each [place] nasal spray 00 nostril in [place] the Branch morning and 1 [place] in the evening. Use in each nostril as directed benzonatate 2022-0 Yes [id number] 100mg Take 1 [facility] (TESSALON 3-30 capsule by ity of PERLES) 100 00:00: mouth [place] mg capsule 00 every 8 Medica l (eight) Branch hours as needed for Cough. azelastine 2022-0 Yes [id number] 1{spray Use 1 [facility] 137 mcg 3-30 } [place] in ity of (0.1 %) 00:00: each [place] nasal spray 00 nostril in [place] [facility] the Branch morning and 1 [place] in the evening. Use in each nostril as directed benzonatate 2022-0 Yes [id number] 100mg Take 1 [facility] (TESSALON 3-30 capsule by ity of PERLES) 100 00:00: mouth [place] mg capsule 00 every 8 Medica l (eight) Branch hours as needed for Cough. azelastine 0 Yes [id number] 1{spray Use 1 [facility] 137 mcg 3-30 } [place] in ity of (0.1 %) 00:00: each [place] [facility] [place] in the evening. Use in each nostril as directed benzonatate 2022-0 Yes [id number] 100mg Take 1 [facility] (TESSALON 3-30 capsule by ity of PERLES) 100 00:00: mouth [place] mg capsule 00 every 8 Medica l (eight) Branch hours as needed for Cough. azelastine 0 Yes [id number] 1{spray Use 1 [facility] 137 mcg 3-30 } [place] in ity of (0.1 %) 00:00: each [place] [facility] and 1 [place] in the evening. Use in each nostril as directed benzonatate 2022-0 Yes [id number] 100mg Take 1 [facility] (TESSALON 3-30 capsule by ity of PERLES) 100 00:00: mouth [place] mg capsule 00 every 8 Medica l (eight) Branch hours as needed for Cough. azelastine 2022-0 Yes [id number] 1{spray Use 1 [facility] 137 mcg 3-30 } [place] in ity of (0.1 %) 00:00: each [place] nasal spray 00 nostril in [place] [facility] the Branch morning and 1 [place] in the evening. Use in each nostril as directed benzonatate 2022-0 Yes [id number] 100mg Take 1 [facility] (TESSALON 3-30 capsule by ity of PERLES) 100 00:00: mouth [place] mg capsule 00 every 8 Medica l (eight) Branch hours as needed for Cough. azelastine 2022-0 Yes [id number] 1{spray Use 1 [facility] 137 mcg 3-30 } [place] in ity of (0.1 %) 00:00: each [place] nasal spray 00 nostril in [place] the Branch morning and 1 [place] in the evening. Use in each nostril as directed benzonatate 2022-0 Yes [id number] 100mg Take 1 [facility] (TESSALON 3-30 capsule by ity of PERLES) 100 00:00: mouth [place] mg capsule 00 every 8 Medica l (eight) Branch hours as needed for Cough. azelastine 0 Yes [id number] 1{spray Use 1 [facility] 137 mcg 3-30 } [place] in ity of (0.1 %) 00:00: each [place] nasal [facility] and 1 [place] in the evening. Use in each nostril as directed benzonatate 2022-0 Yes [id number] 100mg Take 1 [facility] (TESSALON 3-30 capsule by ity of PERLES) 100 00:00: mouth [place] mg capsule 00 every 8 Medica l (eight) Branch hours as needed for Cough. azelastine 0 Yes [id number] 1{spray Use 1 [facility] 137 mcg 3-30 } [place] in ity of (0.1 %) 00:00: each [place] nasal [facility] and 1 [place] in the evening. Use in each nostril as directed benzonatate 2022-0 Yes [id number] 100mg Take 1 [facility] (TESSALON 3-30 capsule by ity of PERLES) 100 00:00: mouth [place] mg capsule 00 every 8 Medica l (eight) Branch hours as needed for Cough. azelastine 2022-0 Yes [id number] 1{spray Use 1 [facility] 137 mcg 3-30 } [place] in ity of (0.1 %) 00:00: each [place] nasal spray 00 nostril in [place] the Branch morning and 1 [place] in the evening. Use in each nostril as directed benzonatate 2022-0 Yes [id number] 100mg Take 1 [facility] (TESSALON 3-30 capsule by ity of PERLES) 100 00:00: mouth [place] mg capsule 00 every 8 Medica l (eight) Branch hours as needed for Cough. azelastine Yes [id number] 1{spray Use 1 [facility] 137 mcg 3-30 } [place] in ity of (0.1 %) 00:00: each [place] nasal spray 00 nostril in [facility] [facility] the morning and 1 [place] in the evening. Use in each nostril as directed benzonatate 0 Yes [id number] 100mg Take 1 [facility] (TESSALON 3-30 capsule by ity of PERLES) 100 00:00: mouth [place] mg capsule 00 every 8 Medica l (eight) Branch hours as needed for Cough. azelastine Yes [id number] 1{spray Use 1 [facility] 137 mcg 3-30 } [place] in ity of (0.1 %) 00:00: each [place] nasal spray 00 nostril in N[place] dical the morning and 1 [place] in the evening. Use in each nostril as directed benzonatate Yes [id number] 100mg Take 1 [facility] (TESSALON 3-30 capsule by ity of PERLES) 100 00:00: mouth [place] mg capsule 00 every 8 Medica l (eight) Branch hours as needed for Cough. ferrous 2022-0 Yes [id number] 324mg Take 1 [facility] vers gluconate 3-07 tablet by ity o f 324 mg (38 00:00: mouth [place] mg iron) 00 daily with Medic al tablet breakfast. Branch ascorbic 2022-0 Yes [id number] 500mg Take 500 [facility] acid, 3-07 mg by ity of vitamin C, 00:00: mouth in [place] 500 mg [place] 00 the Medical morning. Branch ferrous 2022-0 Yes [id number] 324mg Take 1 [facility] vers gluconate 3-07 tablet by ity o f 324 mg (38 00:00: mouth [place] mg iron) 00 daily with Medic al tablet breakfast. Branch ascorbic 2022-0 Yes [id number] 500mg Take 500 [facility] acid, 3-07 mg by ity of vitamin C, 00:00: mouth in [place] 500 mg Cap 00 the Medical morning. Branch ferrous 2022-0 Yes [id number] 324mg Take 1 [facility] vers gluconate 3-07 tablet by ity o f 324 mg (38 00:00: mouth [place] mg iron) 00 daily with Medic al tablet breakfast. Branch ascorbic 2022-0 Yes [id number] 500mg Take 500 [facility] acid, 3-07 mg by ity of vitamin C, 00:00: mouth in [place] 500 mg Cap 00 the Medical morning. Branch ferrous 2022-0 Yes [id number] 324mg Take 1 [facility] vers gluconate 3-07 tablet by ity o f 324 mg (38 00:00: mouth [place] mg iron) 00 daily with Medic al tablet breakfast. Branch ascorbic 2022-0 Yes [id number] 500mg Take 500 [facility] acid, 3-07 mg by ity of vitamin C, 00:00: mouth in [place] 500 mg Cap 00 the Medical morning. Branch ferrous 2022-0 Yes [id number] 324mg Take 1 [facility] vers gluconate 3-07 tablet by ity o f 324 mg (38 00:00: mouth [place] mg iron) 00 daily with Medic al tablet breakfast. Branch ascorbic 2022-0 Yes [id number] 500mg Take 500 [facility] acid, 3-07 mg by ity of vitamin C, 00:00: mouth in [place] 500 mg Cap 00 the Medical morning. Branch ferrous 2022-0 Yes [id number] 324mg Take 1 [facility] vers gluconate 3-07 tablet by ity o f 324 mg (38 00:00: mouth [place] mg iron) 00 daily with Medic al tablet breakfast. Branch ascorbic 2022-0 Yes [id number] 500mg Take 500 [facility] acid, 3-07 mg by ity of vitamin C, 00:00: mouth in [place] 500 mg Cap 00 the Medical morning. Branch ferrous 2022-0 Yes [id number] 324mg Take 1 [facility] vers gluconate 3-07 tablet by ity o f 324 mg (38 00:00: mouth [place] mg iron) 00 daily with Medic al tablet breakfast. Branch ascorbic 3-0 Yes [id number] 500mg Take 500 [facility] acid, 3-07 mg by ity of vitamin C, 00:00: mouth in [place] 500 mg Cap 00 the Medical morning. Branch ferrous 3-0 Yes [id number] 324mg Take 1 [facility] vers gluconate 3-07 tablet by ity o f 324 mg (38 00:00: mouth [place] mg iron) 00 daily with Medic al tablet breakfast. Branch ascorbic 3-0 Yes [id number] 500mg Take 500 [facility] acid, 3-07 mg by ity of vitamin C, 00:00: mouth in [place] 500 mg Cap 00 the Medical morning. Branch ferrous 3-0 Yes [id number] 324mg Take 1 [facility] vers gluconate 3-07 tablet by ity o f 324 mg (38 00:00: mouth [place] mg iron) 00 daily with Medic al tablet breakfast. Branch ascorbic 3-0 Yes [id number] 500mg Take 500 [facility] acid, 3-07 mg by ity of vitamin C, 00:00: mouth in [place] 500 mg Cap 00 the Medical morning. Branch ferrous 3-0 Yes [id number] 324mg Take 1 [facility] vers gluconate 3-07 tablet by ity o f 324 mg (38 00:00: mouth [place] mg iron) 00 daily with Medic al tablet breakfast. Branch ascorbic 3-0 Yes [id number] 500mg Take 500 [facility] acid, 3-07 mg by ity of vitamin C, 00:00: mouth in [place] 500 mg Cap 00 the Medical morning. Branch ferrous 2022-0 Yes [id number] 324mg Take 1 [facility] vers gluconate 3-07 tablet by ity o f 324 mg (38 00:00: mouth [place] mg iron) 00 daily with Medic al tablet breakfast. Branch ascorbic 2022-0 Yes [id number] 500mg Take 500 [facility] acid, 3-07 mg by ity of vitamin C, 00:00: mouth in [place] 500 mg Cap 00 the Medical morning. Branch ferrous 3-0 Yes [id number] 324mg Take 1 [facility] vers gluconate 3-07 tablet by ity o f 324 mg (38 00:00: mouth [place] mg iron) 00 daily with Medic al tablet breakfast. Branch ascorbic 3-0 Yes [id number] 500mg Take 500 [facility] acid, 3-07 mg by ity of vitamin C, 00:00: mouth in [place] 500 mg Cap 00 the Medical morning. Branch ferrous 3-0 Yes [id number] 324mg Take 1 [facility] vers gluconate 3-07 tablet by ity o f 324 mg (38 00:00: mouth [place] mg iron) 00 daily with Medic al tablet breakfast. Branch ascorbic 3-0 Yes [id number] 500mg Take 500 [facility] acid, 3-07 mg by ity of vitamin C, 00:00: mouth in [place] 500 mg Cap 00 the Medical morning. Branch ferrous 3-0 Yes [id number] 324mg Take 1 [facility] vers gluconate 3-07 tablet by ity o f 324 mg (38 00:00: mouth [place] mg iron) 00 daily with Medic al tablet breakfast. Branch ascorbic 3-0 Yes [id number] 500mg Take 500 [facility] acid, 3-07 mg by ity of vitamin C, 00:00: mouth in [place] 500 mg Cap 00 the Medical morning. Branch ferrous 3-0 Yes [id number] 324mg Take 1 [facility] vers gluconate 3-07 tablet by ity o f 324 mg (38 00:00: mouth [place] mg iron) 00 daily with Medic al tablet breakfast. Branch ascorbic 3-0 Yes [id number] 500mg Take 500 [facility] acid, 3-07 mg by ity of vitamin C, 00:00: mouth in [place] 500 mg Cap 00 the Medical morning. Branch ferrous 3-0 Yes [id number] 324mg Take 1 [facility] vers gluconate 3-07 tablet by ity o f 324 mg (38 00:00: mouth [place] mg iron) 00 daily with Medic al tablet breakfast. Branch ascorbic 2022-0 Yes [id number] 500mg Take 500 [facility] acid, 3-07 mg by ity of vitamin C, 00:00: mouth in [place] 500 mg Cap 00 the Medical morning. Branch ferrous 3-0 Yes [id number] 324mg Take 1 [facility] vers gluconate 3-07 tablet by ity o f 324 mg (38 00:00: mouth [place] mg iron) 00 daily with Medic al tablet breakfast. Branch ascorbic 3-0 Yes [id number] 500mg Take 500 [facility] acid, 3-07 mg by ity of vitamin C, 00:00: mouth in [place] 500 mg Cap 00 the Medical morning. Branch ferrous 3-0 Yes [id number] 324mg Take 1 [facility] vers gluconate 3-07 tablet by ity o f 324 mg (38 00:00: mouth [place] mg iron) 00 daily with Medic al tablet breakfast. Branch ascorbic 3-0 Yes [id number] 500mg Take 500 [facility] acid, 3-07 mg by ity of vitamin C, 00:00: mouth in [place] 500 mg Cap 00 the Medical morning. Branch ferrous 3-0 Yes [id number] 324mg Take 1 [facility] vers gluconate 3-07 tablet by ity o f 324 mg (38 00:00: mouth [place] mg iron) 00 daily with Medic al tablet breakfast. Branch ascorbic 3-0 Yes [id number] 500mg Take 500 [facility] acid, 3-07 mg by ity of vitamin C, 00:00: mouth in [place] 500 mg Cap 00 the Medical morning. Branch ferrous 2023-0 Yes [id number] 324mg Take 1 [facility] vers gluconate 3-07 tablet by ity o f 324 mg (38 00:00: mouth [place] mg iron) 00 daily with Medic al tablet breakfast. Branch ascorbic 3-0 Yes [id number] 500mg Take 500 [facility] acid, 3-07 mg by ity of vitamin C, 00:00: mouth in [place] 500 mg Cap 00 the Medical morning. Branch ferrous 3-0 Yes [id number] 324mg Take 1 [facility] vers gluconate 3-07 tablet by ity o f 324 mg (38 00:00: mouth [place] mg iron) 00 daily with Medic al tablet breakfast. Branch ascorbic 3-0 Yes [id number] 500mg Take 500 [facility] acid, 3-07 mg by ity of vitamin C, 00:00: mouth in [place] 500 mg Cap 00 the Medical morning. Branch ferrous 3-0 Yes [id number] 324mg Take 1 [facility] vers gluconate 3-07 tablet by ity o f 324 mg (38 00:00: mouth [place] mg iron) 00 daily with Medic al tablet breakfast. Branch ascorbic 3-0 Yes [id number] 500mg Take 500 [facility] acid, 3-07 mg by ity of vitamin C, 00:00: mouth in [place] 500 mg Cap 00 the Medical morning. Branch ferrous 3-0 Yes [id number] 324mg Take 1 [facility] vers gluconate 3-07 tablet by ity o f 324 mg (38 00:00: mouth [place] mg iron) 00 daily with Medic al tablet breakfast. Branch ascorbic 3-0 Yes [id number] 500mg Take 500 [facility] acid, 3-07 mg by ity of vitamin C, 00:00: mouth in [place] 500 mg Cap 00 the Medical morning. Branch ferrous 3-0 Yes [id number] 324mg Take 1 [facility] vers gluconate 3-07 tablet by ity o f 324 mg (38 00:00: mouth [place] mg iron) 00 daily with Medic al tablet breakfast. Branch ascorbic 3-0 Yes [id number] 500mg Take 500 [facility] acid, 3-07 mg by ity of vitamin C, 00:00: mouth in [place] 500 mg Cap 00 the Medical morning. Branch ferrous 2022-0 Yes [id number] 324mg Take 1 [facility] vers gluconate 3-07 tablet by ity o f 324 mg (38 00:00: mouth [place] mg iron) 00 daily with Medic al tablet breakfast. Branch ascorbic 2022-0 Yes [id number] 500mg Take 500 [facility] acid, 3-07 mg by ity of vitamin C, 00:00: mouth in [place] 500 mg Cap 00 the Medical morning. Branch ferrous 2022-0 Yes [id number] 324mg Take 1 [facility] vers gluconate 3-07 tablet by ity o f 324 mg (38 00:00: mouth [place] mg iron) 00 daily with Medic al tablet breakfast. Branch ascorbic 2022-0 Yes [id number] 500mg Take 500 [facility] acid, 3-07 mg by ity of vitamin C, 00:00: mouth in [place] 500 mg Cap 00 the Medical morning. Branch ferrous 2022-0 Yes [id number] 324mg Take 1 [facility] vers gluconate 3-07 tablet by ity o f 324 mg (38 00:00: mouth [place] mg iron) 00 daily with Medic al tablet breakfast. Branch ascorbic 2022-0 Yes [id number] 500mg Take 500 [facility] acid, 3-07 mg by ity of vitamin C, 00:00: mouth in [place] 500 mg Cap 00 the Medical morning. Branch ferrous 2022-0 Yes [id number] 324mg Take 1 [facility] vers gluconate 3-07 tablet by ity o f 324 mg (38 00:00: mouth [place] mg iron) 00 daily with Medic al tablet breakfast. Branch ascorbic 0 Yes [id number] 500mg Take 500 [facility] acid, 3-07 mg by ity of vitamin C, 00:00: mouth in [place] 500 mg Cap 00 the Medical morning. Branch aspirin 81 2022- Yes [id number] 81mg Take 1 [facility] mg chewable 06-12 tablet by it y of tablet 00:00: 04:59 mouth [place] 00 :00 daily with Medical breakfast Branch for 30 days. polyethylen 2022- Yes [id number] 17g Take 1 [facility] e glycol 06-12 Packet by ity o f 3350 17 00:00: 04:59 mouth in [place] gram powder 00 :00 the Medical morning Branch for 30 days. sennosides- 2022- Yes [id number] 1{tbl} Take 1 [facility] docusate 3-04 17- tablet by ity o f sodium 00:00: 04:59 mouth in [place] 8.6-50 mg 00 :00 the Medical per tablet morning Branch for 30 days. KCL 20 mEq 2022- Yes [id number] 20meq Take 1 [facility] tablet 3-04 17- tablet by ity of 00:00: 04:59 mouth in [place] 00 :00 the Medical morning Branch for 30 days. aspirin 81 2022- Yes [id number] 81mg Take 1 [facility] mg chewable 3-04 17- tablet by it y of tablet 00:00: 04:59 mouth [place] 00 :00 daily with Medical breakfast Branch for 30 days. polyethylen 2022- Yes [id number] 17g Take 1 [facility] e glycol 3-07-13 Packet by ity o f 3350 17 00:00: 04:59 mouth in [place] gram powder 00 :00 the Medical morning Branch for 30 days. sennosides- 2022- Yes [id number] 1{tbl} Take 1 [facility] docusate 3-04 17- tablet by ity o f sodium 00:00: 04:59 mouth in [place] 8.6-50 mg 00 :00 the Medical per tablet morning Branch for 30 days. KCL 20 mEq 2022- Yes [id number] 20meq Take 1 [facility] tablet -07-13 tablet by ity of 00:00: 04:59 mouth in [place] 00 :00 the Medical morning Branch for 30 days. aspirin 81 2022- Yes [id number] 81mg Take 1 [facility] mg chewable 3-07-13 tablet by it y of tablet 00:00: 04:59 mouth [place] 00 :00 daily with Medical breakfast Branch for 30 days. polyethylen 2022- Yes [id number] 17g Take 1 [facility] e glycol 3-07-13 Packet by ity o f 3350 17 00:00: 04:59 mouth in [place] gram powder 00 :00 the Medical morning Branch for 30 days. sennosides- 2022- Yes [id number] 1{tbl} Take 1 [facility] docusate 3-07-13 tablet by ity o f sodium 00:00: 04:59 mouth in [place] 8.6-50 mg 00 :00 the Medical per tablet morning Branch for 30 days. KCL 20 mEq 2022- Yes [id number] 20meq Take 1 [facility] tablet 06-12 tablet by ity of 00:00: 04:59 mouth in [place] 00 :00 the Medical morning Branch for 30 days. aspirin 81 2022-0 2022- Yes [id number] 81mg Take 1 [facility] mg chewable -07-13 tablet by it y of tablet 00:00: 04:59 mouth [place] 00 :00 daily with Medical breakfast Branch for 30 days. polyethylen 2022- Yes [id number] 17g Take 1 [facility] e glycol -07-13 Packet by ity o f 3350 17 00:00: 04:59 mouth in [place] gram powder 00 :00 the Medical morning Branch for 30 days. sennosides- 2022- Yes [id number] 1{tbl} Take 1 [facility] docusate 06-12 tablet by ity o f sodium 00:00: 04:59 mouth in [place] 8.6-50 mg 00 :00 the Medical per tablet morning Branch for 30 days. KCL 20 mEq 2022- Yes [id number] 20meq Take 1 [facility] tablet 06-12 tablet by ity of 00:00: 04:59 mouth in [place] 00 :00 the Medical morning Branch for 30 days. aspirin 81 2022- Yes [id number] 81mg Take 1 [facility] mg chewable -07-13 tablet by it y of tablet 00:00: 04:59 mouth [place] 00 :00 daily with Medical breakfast Branch for 30 days. polyethylen 2022- Yes [id number] 17g Take 1 [facility] e glycol -07-13 Packet by ity o f 3350 17 00:00: 04:59 mouth in [place] gram powder 00 :00 the Medical morning Branch for 30 days. sennosides- 2022- Yes [id number] 1{tbl} Take 1 [facility] docusate -07-13 tablet by ity o f sodium 00:00: 04:59 mouth in [place] 8.6-50 mg 00 :00 the Medical per tablet morning Branch for 30 days. KCL 20 mEq 2022- Yes [id number] 20meq Take 1 [facility] tablet -07-13 tablet by ity of 00:00: 04:59 mouth in [place] 00 :00 the Medical morning Branch for 30 days. aspirin 81 2022-0 2022- Yes [id number] 81mg Take 1 [facility] mg chewable 3-07-13 tablet by it y of tablet 00:00: 04:59 mouth [place] 00 :00 daily with Medical breakfast Branch for 30 days. polyethylen 2022- Yes [id number] 17g Take 1 [facility] e glycol -07-13 Packet by ity o f 3350 17 00:00: 04:59 mouth in [place] gram powder 00 :00 the Medical morning Branch for 30 days. sennosides- 2022- Yes [id number] 1{tbl} Take 1 [facility] docusate 3-07-13 tablet by ity o f sodium 00:00: 04:59 mouth in [place] 8.6-50 mg 00 :00 the Medical per tablet morning Branch for 30 days. KCL 20 mEq 2022- Yes [id number] 20meq Take 1 [facility] tablet 06-12 tablet by ity of 00:00: 04:59 mouth in [place] 00 :00 the Medical morning Branch for 30 days. aspirin 81 2022- Yes [id number] 81mg Take 1 [facility] mg chewable -07-13 tablet by it y of tablet 00:00: 04:59 mouth [place] 00 :00 daily with Medical breakfast Branch for 30 days. polyethylen 2022- Yes [id number] 17g Take 1 [facility] e glycol -07-13 Packet by ity o f 3350 17 00:00: 04:59 mouth in [place] gram powder 00 :00 the Medical morning Branch for 30 days. sennosides- 2022- Yes [id number] 1{tbl} Take 1 [facility] docusate 3-04 17- tablet by ity o f sodium 00:00: 04:59 mouth in [place] 8.6-50 mg 00 :00 the Medical per tablet morning Branch for 30 days. KCL 20 mEq 2022- Yes [id number] 20meq Take 1 [facility] tablet -07-13 tablet by ity of 00:00: 04:59 mouth in [place] 00 :00 the Medical morning Branch for 30 days. aspirin 81 2022- Yes [id number] 81mg Take 1 [facility] mg chewable -07-13 tablet by it y of tablet 00:00: 04:59 mouth [place] 00 :00 daily with Medical breakfast Branch for 30 days. polyethylen 2022- Yes [id number] 17g Take 1 [facility] e glycol -07-13 Packet by ity o f 3350 17 00:00: 04:59 mouth in [place] gram powder 00 :00 the Medical morning Branch for 30 days. sennosides- 2022- Yes [id number] 1{tbl} Take 1 [facility] docusate -07-13 tablet by ity o f sodium 00:00: 04:59 mouth in [place] 8.6-50 mg 00 :00 the Medical per tablet morning Branch for 30 days. KCL 20 mEq 2022- Yes [id number] 20meq Take 1 [facility] tablet 06-12 tablet by ity of 00:00: 04:59 mouth in [place] 00 :00 the Medical morning Branch for 30 days. aspirin 81 2022- Yes [id number] 81mg Take 1 [facility] mg chewable 06-12 tablet by it y of tablet 00:00: 04:59 mouth [place] 00 :00 daily with Medical breakfast Branch for 30 days. polyethylen 2022- Yes [id number] 17g Take 1 [facility] e glycol 06-12 Packet by ity o f 3350 17 00:00: 04:59 mouth in [place] gram powder 00 :00 the Medical morning Branch for 30 days. sennosides- 2022- Yes [id number] 1{tbl} Take 1 [facility] docusate -07-13 tablet by ity o f sodium 00:00: 04:59 mouth in [place] 8.6-50 mg 00 :00 the Medical per tablet morning Branch for 30 days. KCL 20 mEq 2022- Yes [id number] 20meq Take 1 [facility] tablet -07-13 tablet by ity of 00:00: 04:59 mouth in [place] 00 :00 the Medical morning Branch for 30 days. aspirin 81 2022-0 2022- Yes [id number] 81mg Take 1 [facility] mg chewable 3-07-13 tablet by it y of tablet 00:00: 04:59 mouth [place] 00 :00 daily with Medical breakfast Branch for 30 days. polyethylen 0 2022- Yes [id number] 17g Take 1 [facility] e glycol -07-13 Packet by ity o f 3350 17 00:00: 04:59 mouth in [place] gram powder 00 :00 the Medical morning Branch for 30 days. sennosides- 2022-0 2022- Yes [id number] 1{tbl} Take 1 [facility] docusate -07-13 tablet by ity o f sodium 00:00: 04:59 mouth in [place] 8.6-50 mg 00 :00 the Medical per tablet morning Branch for 30 days. KCL 20 mEq 2022- Yes [id number] 20meq Take 1 [facility] tablet 06-12 tablet by ity of 00:00: 04:59 mouth in [place] 00 :00 the Medical morning Branch for 30 days. aspirin 81 0 2022- Yes [id number] 81mg Take 1 [facility] mg chewable -07-13 tablet by it y of tablet 00:00: 04:59 mouth [place] 00 :00 daily with Medical breakfast Branch for 30 days. polyethylen 2022- Yes [id number] 17g Take 1 [facility] e glycol -07-13 Packet by ity o f 3350 17 00:00: 04:59 mouth in [place] gram powder 00 :00 the Medical morning Branch for 30 days. sennosides- 0 2022- Yes [id number] 1{tbl} Take 1 [facility] docusate 3-04 17- tablet by ity o f sodium 00:00: 04:59 mouth in [place] 8.6-50 mg 00 :00 the Medical per tablet morning Branch for 30 days. KCL 20 mEq 0 2022- Yes [id number] 20meq Take 1 [facility] tablet -07-13 tablet by ity of 00:00: 04:59 mouth in [place] 00 :00 the Medical morning Branch for 30 days. aspirin 81 2022- Yes [id number] 81mg Take 1 [facility] mg chewable 3-04 17- tablet by it y of tablet 00:00: 04:59 mouth [place] 00 :00 daily with Medical breakfast Branch for 30 days. polyethylen 2022- Yes [id number] 17g Take 1 [facility] e glycol -07-13 Packet by ity o f 3350 17 00:00: 04:59 mouth in [place] gram powder 00 :00 the Medical morning Branch for 30 days. sennosides- 2022- Yes [id number] 1{tbl} Take 1 [facility] docusate 3-04 17- tablet by ity o f sodium 00:00: 04:59 mouth in [place] 8.6-50 mg 00 :00 the Medical per tablet morning Branch for 30 days. KCL 20 mEq 2022- Yes [id number] 20meq Take 1 [facility] tablet 06-12 tablet by ity of 00:00: 04:59 mouth in [place] 00 :00 the Medical morning Branch for 30 days. aspirin 81 2022- Yes [id number] 81mg Take 1 [facility] mg chewable -07-13 tablet by it y of tablet 00:00: 04:59 mouth [place] 00 :00 daily with Medical breakfast Branch for 30 days. polyethylen 2022- Yes [id number] 17g Take 1 [facility] e glycol -07-13 Packet by ity o f 3350 17 00:00: 04:59 mouth in [place] gram powder 00 :00 the Medical morning Branch for 30 days. sennosides- 2022- Yes [id number] 1{tbl} Take 1 [facility] docusate 3-04 17- tablet by ity o f sodium 00:00: 04:59 mouth in [place] 8.6-50 mg 00 :00 the Medical per tablet morning Branch for 30 days. KCL 20 mEq 2022- Yes [id number] 20meq Take 1 [facility] tablet 3-04 17- tablet by ity of 00:00: 04:59 mouth in [place] 00 :00 the Medical morning Branch for 30 days. aspirin 81 2022- Yes [id number] 81mg Take 1 [facility] mg chewable 3-07-13 tablet by it y of tablet 00:00: 04:59 mouth [place] 00 :00 daily with Medical breakfast Branch for 30 days. polyethylen 2022- Yes [id number] 17g Take 1 [facility] e glycol 06-12 Packet by ity o f 3350 17 00:00: 04:59 mouth in [place] gram powder 00 :00 the Medical morning Branch for 30 days. sennosides- 2022- Yes [id number] 1{tbl} Take 1 [facility] docusate -07-13 tablet by ity o f sodium 00:00: 04:59 mouth in [place] 8.6-50 mg 00 :00 the Medical per tablet morning Branch for 30 days. KCL 20 mEq 2022- Yes [id number] 20meq Take 1 [facility] tablet 06-12 tablet by ity of 00:00: 04:59 mouth in [place] 00 :00 the Medical morning Branch for 30 days. aspirin 81 2022- Yes [id number] 81mg Take 1 [facility] mg chewable 06-12 tablet by it y of tablet 00:00: 04:59 mouth [place] 00 :00 daily with Medical breakfast Branch for 30 days. polyethylen 2022- Yes [id number] 17g Take 1 [facility] e glycol 06-12 Packet by ity o f 3350 17 00:00: 04:59 mouth in [place] gram powder 00 :00 the Medical morning Branch for 30 days. sennosides- 2022- Yes [id number] 1{tbl} Take 1 [facility] docusate 06-12 tablet by ity o f sodium 00:00: 04:59 mouth in [place] 8.6-50 mg 00 :00 the Medical per tablet morning Branch for 30 days. KCL 20 mEq 2022- Yes [id number] 20meq Take 1 [facility] tablet -07-13 tablet by ity of 00:00: 04:59 mouth in [place] 00 :00 the Medical morning Branch for 30 days. aspirin 81 2022- Yes [id number] 81mg Take 1 [facility] mg chewable 3-07-13 tablet by it y of tablet 00:00: 04:59 mouth [place] 00 :00 daily with Medical breakfast Branch for 30 days. polyethylen 2022- Yes [id number] 17g Take 1 [facility] e glycol 3-07-13 Packet by ity o f 3350 17 00:00: 04:59 mouth in [place] gram powder 00 :00 the Medical morning Branch for 30 days. sennosides- 2022- Yes [id number] 1{tbl} Take 1 [facility] docusate 3-04 17- tablet by ity o f sodium 00:00: 04:59 mouth in [place] 8.6-50 mg 00 :00 the Medical per tablet morning Branch for 30 days. KCL 20 mEq 2022- Yes [id number] 20meq Take 1 [facility] tablet -04 17- tablet by ity of 00:00: 04:59 mouth in [place] 00 :00 the Medical morning Branch for 30 days. aspirin 81 2022- Yes [id number] 81mg Take 1 [facility] mg chewable 3-07-13 tablet by it y of tablet 00:00: 04:59 mouth [place] 00 :00 daily with Medical breakfast Branch for 30 days. polyethylen 2022- Yes [id number] 17g Take 1 [facility] e glycol 3-07-13 Packet by ity o f 3350 17 00:00: 04:59 mouth in [place] gram powder 00 :00 the Medical morning Branch for 30 days. sennosides- 2022- Yes [id number] 1{tbl} Take 1 [facility] docusate 3-04 17- tablet by ity o f sodium 00:00: 04:59 mouth in [place] 8.6-50 mg 00 :00 the Medical per tablet morning Branch for 30 days. KCL 20 mEq 2022- Yes [id number] 20meq Take 1 [facility] tablet 3-04 17- tablet by ity of 00:00: 04:59 mouth in [place] 00 :00 the Medical morning Branch for 30 days. aspirin 81 2022- Yes [id number] 81mg Take 1 [facility] mg chewable 3-04 17- tablet by it y of tablet 00:00: 04:59 mouth [place] 00 :00 daily with Medical breakfast Branch for 30 days. polyethylen 2022- Yes [id number] 17g Take 1 [facility] e glycol 3-04 17- Packet by ity o f 3350 17 00:00: 04:59 mouth in [place] gram powder 00 :00 the Medical morning Branch for 30 days. sennosides- 2022- Yes [id number] 1{tbl} Take 1 [facility] docusate 3-04 17- tablet by ity o f sodium 00:00: 04:59 mouth in [place] 8.6-50 mg 00 :00 the Medical per tablet morning Branch for 30 days. KCL 20 mEq 2022- Yes [id number] 20meq Take 1 [facility] tablet -04 17- tablet by ity of 00:00: 04:59 mouth in [place] 00 :00 the Medical morning Branch for 30 days. aspirin 81 2022- Yes [id number] 81mg Take 1 [facility] mg chewable -07-13 tablet by it y of tablet 00:00: 04:59 mouth [place] 00 :00 daily with Medical breakfast Branch for 30 days. polyethylen 2022- Yes [id number] 17g Take 1 [facility] e glycol -07-13 Packet by ity o f 3350 17 00:00: 04:59 mouth in [place] gram powder 00 :00 the Medical morning Branch for 30 days. sennosides- 2022- Yes [id number] 1{tbl} Take 1 [facility] docusate 3-04 17- tablet by ity o f sodium 00:00: 04:59 mouth in [place] 8.6-50 mg 00 :00 the Medical per tablet morning Branch for 30 days. KCL 20 mEq 2022- Yes [id number] 20meq Take 1 [facility] tablet -04 17- tablet by ity of 00:00: 04:59 mouth in [place] 00 :00 the Medical morning Branch for 30 days. aspirin 81 2022- Yes [id number] 81mg Take 1 [facility] mg chewable 3-07-13 tablet by it y of tablet 00:00: 04:59 mouth [place] 00 :00 daily with Medical breakfast Branch for 30 days. polyethylen 2022- Yes [id number] 17g Take 1 [facility] e glycol 3-07-13 Packet by ity o f 3350 17 00:00: 04:59 mouth in [place] gram powder 00 :00 the Medical morning Branch for 30 days. sennosides- 2022- Yes [id number] 1{tbl} Take 1 [facility] docusate 3-07-13 tablet by ity o f sodium 00:00: 04:59 mouth in [place] 8.6-50 mg 00 :00 the Medical per tablet morning Branch for 30 days. KCL 20 mEq 2022- Yes [id number] 20meq Take 1 [facility] tablet -07-13 tablet by ity of 00:00: 04:59 mouth in [place] 00 :00 the Medical morning Branch for 30 days. aspirin 81 2022- Yes [id number] 81mg Take 1 [facility] mg chewable -07-13 tablet by it y of tablet 00:00: 04:59 mouth [place] 00 :00 daily with Medical breakfast Branch for 30 days. polyethylen 2022- Yes [id number] 17g Take 1 [facility] e glycol -07-13 Packet by ity o f 3350 17 00:00: 04:59 mouth in [place] gram powder 00 :00 the Medical morning Branch for 30 days. sennosides- 2022- Yes [id number] 1{tbl} Take 1 [facility] docusate -07-13 tablet by ity o f sodium 00:00: 04:59 mouth in [place] 8.6-50 mg 00 :00 the Medical per tablet morning Branch for 30 days. KCL 20 mEq 2022- Yes [id number] 20meq Take 1 [facility] tablet 06-12 tablet by ity of 00:00: 04:59 mouth in [place] 00 :00 the Medical morning Branch for 30 days. aspirin 81 2022- Yes [id number] 81mg Take 1 [facility] mg chewable 3-07-13 tablet by it y of tablet 00:00: 04:59 mouth [place] 00 :00 daily with Medical breakfast Branch for 30 days. polyethylen 2022- Yes [id number] 17g Take 1 [facility] e glycol -07-13 Packet by ity o f 3350 17 00:00: 04:59 mouth in [place] gram powder 00 :00 the Medical morning Branch for 30 days. sennosides- 2022- Yes [id number] 1{tbl} Take 1 [facility] docusate 06-12 tablet by ity o f sodium 00:00: 04:59 mouth in [place] 8.6-50 mg 00 :00 the Medical per tablet morning Branch for 30 days. KCL 20 mEq 2022- Yes [id number] 20meq Take 1 [facility] tablet 06-12 tablet by ity of 00:00: 04:59 mouth in [place] 00 :00 the Medical morning Branch for 30 days. atropine 1 Yes atropine 1 U nivers % 2-28 % eye ity of ophthalmic 17:00: drops [address] Yes Pylera 140 [facility] ronidazole- 2-28 mg-125 ity of tetracyclin 17:00: mg-125 mg [place] (PYLERA) 45 capsule Medica l 140-125-125 Branch mg per capsule atropine 1 Yes atropine 1 U nivers % 2-28 % eye ity of ophthalmic 17:00: drops [place] drops [address] [place] [address] Yes Pylera 140 [facility] ronidazole- 2-28 mg-125 ity of tetracyclin 17:00: mg-125 mg [place] (PYLERA) 45 capsule Medica l 140-125-125 Branch mg per capsule atropine 1 Yes atropine 1 U nivers % 2-28 % eye ity of ophthalmic 17:00: drops [place] drops [address] [place] [address] Yes Pylera 140 [facility] ronidazole- 2-28 mg-125 ity of tetracyclin 17:00: mg-125 mg [place] (PYLERA) 45 capsule Medica l 140-125-125 Branch mg per capsule atropine 1 Yes atropine 1 U nivers % 2-28 % eye ity of ophthalmic 17:00: drops [place] drops [address] [place] [address] Yes Pylera 140 [facility] ronidazole- 2-28 mg-125 ity of tetracyclin 17:00: mg-125 mg [place] (PYLERA) 45 capsule Medica l 140-125-125 Branch mg per capsule atropine 1 Yes atropine 1 U nivers % 2-28 % eye ity of ophthalmic 17:00: drops [place] drops [facility] Yes Pylera 140 [facility] ronidazole- 2-28 mg-125 ity of tetracyclin 17:00: mg-125 mg [place] (PYLERA) 45 capsule Medica l 140-125-125 Branch mg per capsule atropine 1 Yes atropine 1 U nivers % 2-28 % eye ity of ophthalmic 17:00: drops [place] drops 45 [facility] Yes Pylera 140 [facility] ronidazole- 2-28 mg-125 ity of tetracyclin 17:00: mg-125 mg [place] (PYLERA) 45 capsule Medica l 140-125-125 Branch mg per capsule atropine 1 Yes atropine 1 U nivers % 2-28 % eye ity of ophthalmic 17:00: drops [place] drops 45 [facility] Yes Pylera 140 [facility] ronidazole- 2-28 mg-125 ity of tetracyclin 17:00: mg-125 mg [place] (PYLERA) 45 capsule Medica l 140-125-125 Branch mg per capsule atropine 1 Yes atropine 1 U nivers % 2-28 % eye ity of ophthalmic 17:00: drops [place] drops 45 [facility] Yes Pylera 140 [facility] ronidazole- 2-28 mg-125 ity of tetracyclin 17:00: mg-125 mg [place] (PYLERA) 45 capsule Medica l 140-125-125 Branch mg per capsule atropine 1 Yes atropine 1 U nivers % 2-28 % eye ity of ophthalmic 17:00: drops [place] drops 45 [facility] Yes Pylera 140 [facility] ronidazole- 2-28 mg-125 ity of tetracyclin 17:00: mg-125 mg [place] (PYLERA) 45 capsule Medica l 140-125-125 Branch mg per capsule atropine 1 Yes atropine 1 U nivers % 2-28 % eye ity of ophthalmic 17:00: drops [place] drops 45 [facility] Yes Pylera 140 [facility] ronidazole- 2-28 mg-125 ity of tetracyclin 17:00: mg-125 mg [place] (PYLERA) 45 capsule Medica l 140-125-125 Branch mg per capsule atropine 1 Yes atropine 1 U nivers % 2-28 % eye ity of ophthalmic 17:00: drops [place] drops 45 [facility] [place] [facility] Yes Pylera 140 [facility] ronidazole- 2-28 mg-125 ity of tetracyclin 17:00: mg-125 mg [place] (PYLERA) 45 capsule Medica l 140-125-125 Branch mg per capsule atropine 1 Yes atropine 1 U nivers % 2-28 % eye ity of ophthalmic 17:00: drops [place] [facility] ronidazole- 2-28 mg-125 ity of tetracyclin 17:00: mg-125 mg [place] (PYLERA) 45 capsule Medica l 140-125-125 Branch mg per capsule atropine 1 Yes atropine 1 U nivers % 2-28 % eye ity of ophthalmic 17:00: drops [place] drops 45 [facility] Yes Pylera 140 [facility] ronidazole- 2-28 mg-125 ity of tetracyclin 17:00: mg-125 mg [place] (PYLERA) 45 capsule Medica l 140-125-125 Branch mg per capsule atropine 1 Yes atropine 1 U nivers % 2-28 % eye ity of ophthalmic 17:00: drops [place] drops 45 [facility] Yes Pylera 140 [facility] ronidazole- 2-28 mg-125 ity of tetracyclin 17:00: mg-125 mg [place] (PYLERA) 45 capsule Medica l 140-125-125 Branch mg per capsule atropine 1 Yes atropine 1 U nivers % 2-28 % eye ity of ophthalmic 17:00: drops [place] [facility] ronidazole- 2-28 mg-125 ity of tetracyclin 17:00: mg-125 mg [place] (PYLERA) 45 capsule Medica l 140-125-125 Branch mg per capsule atropine 1 Yes atropine 1 U nivers % 2-28 % eye ity of ophthalmic 17:00: drops [place] drops 45 [facility] Yes Pylera 140 [facility] ronidazole- 2-28 mg-125 ity of tetracyclin 17:00: mg-125 mg [place] (PYLERA) 45 capsule Medica l 140-125-125 Branch mg per capsule atropine 1 Yes atropine 1 U nivers % 2-28 % eye ity of ophthalmic 17:00: drops [place] drops 45 [facility] Yes Pylera 140 [facility] ronidazole- 2-28 mg-125 ity of tetracyclin 17:00: mg-125 mg [place] (PYLERA) 45 capsule Medica l 140-125-125 Branch mg per capsule atropine 1 Yes atropine 1 U nivers % 2-28 % eye ity of ophthalmic 17:00: drops [place] drops 45 [facility] Yes Pylera 140 [facility] ronidazole- 2-28 mg-125 ity of tetracyclin 17:00: mg-125 mg [place] (PYLERA) 45 capsule Medica l 140-125-125 Branch mg per capsule atropine 1 Yes atropine 1 U nivers % 2-28 % eye ity of ophthalmic 17:00: drops [place] drops 45 [facility] Yes Pylera 140 [facility] ronidazole- 2-28 mg-125 ity of tetracyclin 17:00: mg-125 mg [place] (PYLERA) 45 capsule Medica l 140-125-125 Branch mg per capsule atropine 1 Yes atropine 1 U nivers % 2-28 % eye ity of ophthalmic 17:00: drops [place] drops 45 [facility] Yes Pylera 140 [facility] ronidazole- 2-28 mg-125 ity of tetracyclin 17:00: mg-125 mg [place] (PYLERA) 45 capsule Medica l 140-125-125 Branch mg per capsule atropine 1 Yes atropine 1 U nivers % 2-28 % eye ity of ophthalmic 17:00: drops [place] drops 45 [facility] Yes Pylera 140 [facility] ronidazole- 2-28 mg-125 ity of tetracyclin 17:00: mg-125 mg [place] (PYLERA) 45 capsule Medica l 140-125-125 Branch mg per capsule atropine 1 Yes atropine 1 U nivers % 2-28 % eye ity of ophthalmic 17:00: drops [place] [facility] ronidazole- 2-28 mg-125 ity of tetracyclin 17:00: mg-125 mg [place] (PYLERA) 45 capsule Medica l 140-125-125 Branch mg per capsule atropine 1 Yes atropine 1 U nivers % 2-28 % eye ity of ophthalmic 17:00: drops [place] drops 45 [facility] Yes Pylera 140 [facility] ronidazole- 2-28 mg-125 ity of tetracyclin 17:00: mg-125 mg [place] (PYLERA) 45 capsule Medica l 140-125-125 Branch mg per capsule atropine 1 Yes atropine 1 U nivers % 2-28 % eye ity of ophthalmic 17:00: drops [place] drops [facility] P[facility] 140 [facility] ronidazole- 2-28 mg-125 ity of tetracyclin 17:00: mg-125 mg [place] (PYLERA) 45 capsule Medica l 140-125-125 Branch mg per capsule atropine 1 Yes atropine 1 U nivers % 2-28 % eye ity of ophthalmic 17:00: drops [place] drops 45 [facility] Yes Pylera 140 [facility] ronidazole- 2-28 mg-125 ity of tetracyclin 17:00: mg-125 mg [place] (PYLERA) 45 capsule Medica l 140-125-125 Branch mg per capsule atropine 1 Yes atropine 1 U nivers % 2-28 % eye ity of ophthalmic 17:00: drops [place] [facility] ronidazole- 2-28 mg-125 ity of tetracyclin 17:00: mg-125 mg [place] (PYLERA) 45 capsule Medica l 140-125-125 Branch mg per capsule atropine 1 Yes atropine 1 U nivers % 2-28 % eye ity of ophthalmic 17:00: drops [place] drops 45 [facility] Yes Pylera 140 Univers ronidazole- 2-28 mg-125 ity of tetracyclin 17:00: mg-125 mg [place] (PYLERA) 45 capsule Medica l 140-125-125 Branch mg per capsule atropine 1 Yes atropine 1 U nivers % 2-28 % eye ity of ophthalmic 17:00: drops [place] drops 45 [facility] Yes Pylera 140 Univers ronidazole- 2-28 mg-125 ity of tetracyclin 17:00: mg-125 mg [place] (PYLERA) 45 capsule Medica l 140-125-125 Branch mg per capsule atropine 1 Yes atropine 1 U nivers % 2-28 % eye ity of ophthalmic 17:00: drops [place] drops 45 [facility] Yes Pylera 140 [facility] ronidazole- 2-28 mg-125 ity of tetracyclin 17:00: mg-125 mg [place] (PYLERA) 45 capsule Medica l 140-125-125 Branch mg per capsule atropine 1 Yes atropine 1 U nivers % 2-28 % eye ity of ophthalmic 17:00: drops [place] drops 45 [facility] Yes Pylera 140 Univers ronidazole- 2-28 mg-125 ity of tetracyclin 17:00: mg-125 mg [place] (PYLERA) 45 capsule Medica l 140-125-125 Branch mg per capsule atropine 1 Yes atropine 1 U nivers % 2-28 % eye ity of ophthalmic 17:00: drops [place] drops [facility] P[facility] 140 [facility] ronidazole- 2-28 mg-125 ity of tetracyclin 17:00: mg-125 mg [place] (PYLERA) 45 capsule Medica l 140-125-125 Branch mg per capsule atropine 1 Yes atropine 1 U nivers % 2-28 % eye ity of ophthalmic 17:00: drops [place] drops 45 [facility] 2023-0 Yes Pylera 140 Univers ronidazole- 2-28 mg-125 ity of tetracyclin 17:00: mg-125 mg [place] (PYLERA) 45 capsule Medica l 140-125-125 Branch mg per capsule atropine 1 Yes atropine 1 U nivers % 2-28 % eye ity of ophthalmic 17:00: drops [place] drops [facility] P[facility] 140 [facility] ronidazole- 2-28 mg-125 ity of tetracyclin 17:00: mg-125 mg [place] (PYLERA) 45 capsule Medica l 140-125-125 Branch mg per capsule atropine 1 Yes atropine 1 U nivers % 2-28 % eye ity of ophthalmic 17:00: drops [place] drops 45 [facility] Yes Pylera 140 Univers ronidazole- 2-28 mg-125 ity of tetracyclin 17:00: mg-125 mg [place] (PYLERA) 45 capsule Medica l 140-125-125 Branch mg per capsule atropine 1 Yes atropine 1 U nivers % 2-28 % eye ity of ophthalmic 17:00: drops [place] drops 45 [facility] Yes Pyl[place] 140 Univers ronidazole- 2-28 mg-125 ity of tetracyclin 17:00: mg-125 mg [place] (PYLERA) 45 capsule Medica l 140-125-125 Branch mg per capsule metoprolol 2022- Yes [id number] 25mg Take 1 [facility] succinate 06-11- tablet by ity of XL 25 mg 24 00:00: 04:59 mouth at [place] hr tablet 00 :00 bedtime Medical for 30 Branch days. furosemide 2022- Yes [id number] 40mg Take 1 [facility] 40 mg -09 07- tablet by ity of tablet 00:00: 04:59 mouth in [place] 00 :00 the Medical morning Branch for 30 days. metoprolol 2022- Yes [id number] 25mg Take 1 [facility] succinate -09 07- tablet by ity of XL 25 mg 24 00:00: 04:59 mouth at [place] hr tablet 00 :00 bedtime Medical for 30 Branch days. furosemide 2022- Yes [id number] 40mg Take 1 [facility] 40 mg 2-28 -31 tablet by ity of tablet 00:00: 04:59 mouth in [place] 00 :00 the Medical morning Branch for 30 days. metoprolol 2022- Yes [id number] 25mg Take 1 [facility] succinate 2-09 07-31 tablet by ity of XL 25 mg 24 00:00: 04:59 mouth at [place] hr tablet 00 :00 bedtime Medical for 30 Branch days. furosemide 2022- Yes [id number] 40mg Take 1 [facility] 40 mg 2-28 -31 tablet by ity of tablet 00:00: 04:59 mouth in [place] 00 :00 the Medical morning Branch for 30 days. metoprolol 2022- Yes [id number] 25mg Take 1 [facility] succinate 2-09 07-31 tablet by ity of XL 25 mg 24 00:00: 04:59 mouth at [place] hr tablet 00 :00 bedtime Medical for 30 Branch days. furosemide 2022- Yes [id number] 40mg Take 1 [facility] 40 mg 2-09 07-31 tablet by ity of tablet 00:00: 04:59 mouth in [place] 00 :00 the Medical morning Branch for 30 days. metoprolol 2022- Yes [id number] 25mg Take 1 [facility] succinate 2-09 07-31 tablet by ity of XL 25 mg 24 00:00: 04:59 mouth at [place] hr tablet 00 :00 bedtime Medical for 30 Branch days. furosemide 2022- Yes [id number] 40mg Take 1 [facility] 40 mg 2-09 07-31 tablet by ity of tablet 00:00: 04:59 mouth in [place] 00 :00 the Medical morning Branch for 30 days. metoprolol 2022- Yes [id number] 25mg Take 1 [facility] succinate 2-28 -31 tablet by ity of XL 25 mg 24 00:00: 04:59 mouth at [place] hr tablet 00 :00 bedtime Medical for 30 Branch days. furosemide 2022- Yes [id number] 40mg Take 1 [facility] 40 mg 2-28 -31 tablet by ity of tablet 00:00: 04:59 mouth in [place] 00 :00 the Medical morning Branch for 30 days. metoprolol 2022- Yes [id number] 25mg Take 1 [facility] succinate 2-28 -31 tablet by ity of XL 25 mg 24 00:00: 04:59 mouth at [place] hr tablet 00 :00 bedtime Medical for 30 Branch days. furosemide 2022- Yes [id number] 40mg Take 1 [facility] 40 mg 2-28 -31 tablet by ity of tablet 00:00: 04:59 mouth in [place] 00 :00 the Medical morning Branch for 30 days. metoprolol 2022- Yes [id number] 25mg Take 1 [facility] succinate 2-28 -31 tablet by ity of XL 25 mg 24 00:00: 04:59 mouth at [place] hr tablet 00 :00 bedtime Medical for 30 Branch days. furosemide 2022- Yes [id number] 40mg Take 1 [facility] 40 mg 2-09 07-31 tablet by ity of tablet 00:00: 04:59 mouth in [place] 00 :00 the Medical morning Branch for 30 days. metoprolol 2022- Yes [id number] 25mg Take 1 [facility] succinate 2-09 07-31 tablet by ity of XL 25 mg 24 00:00: 04:59 mouth at [place] hr tablet 00 :00 bedtime Medical for 30 Branch days. furosemide 2022- Yes [id number] 40mg Take 1 [facility] 40 mg 2-09 07-31 tablet by ity of tablet 00:00: 04:59 mouth in [place] 00 :00 the Medical morning Branch for 30 days. metoprolol 2022- Yes [id number] 25mg Take 1 [facility] succinate 2-28 -31 tablet by ity of XL 25 mg 24 00:00: 04:59 mouth at [place] hr tablet 00 :00 bedtime Medical for 30 Branch days. furosemide 2022- Yes [id number] 40mg Take 1 [facility] 40 mg 2-28 -31 tablet by ity of tablet 00:00: 04:59 mouth in [place] 00 :00 the Medical morning Branch for 30 days. metoprolol 2022- Yes [id number] 25mg Take 1 [facility] succinate 2-28 -31 tablet by ity of XL 25 mg 24 00:00: 04:59 mouth at [place] hr tablet 00 :00 bedtime Medical for 30 Branch days. furosemide 2022- Yes [id number] 40mg Take 1 [facility] 40 mg 2-28 -31 tablet by ity of tablet 00:00: 04:59 mouth in [place] 00 :00 the Medical morning Branch for 30 days. metoprolol 2022- Yes [id number] 25mg Take 1 [facility] succinate 2-28 -31 tablet by ity of XL 25 mg 24 00:00: 04:59 mouth at [place] hr tablet 00 :00 bedtime Medical for 30 Branch days. furosemide 2022- Yes [id number] 40mg Take 1 [facility] 40 mg 2-28 -31 tablet by ity of tablet 00:00: 04:59 mouth in [place] 00 :00 the Medical morning Branch for 30 days. metoprolol 2022- Yes [id number] 25mg Take 1 [facility] succinate 2-09 07-31 tablet by ity of XL 25 mg 24 00:00: 04:59 mouth at [place] hr tablet 00 :00 bedtime Medical for 30 Branch days. furosemide 2022- Yes [id number] 40mg Take 1 [facility] 40 mg 2-09 07-31 tablet by ity of tablet 00:00: 04:59 mouth in [place] 00 :00 the Medical morning Branch for 30 days. metoprolol 2022- Yes [id number] 25mg Take 1 [facility] succinate 2-09 07-31 tablet by ity of XL 25 mg 24 00:00: 04:59 mouth at [place] hr tablet 00 :00 bedtime Medical for 30 Branch days. furosemide 2022- Yes [id number] 40mg Take 1 [facility] 40 mg 2-28 -31 tablet by ity of tablet 00:00: 04:59 mouth in [place] 00 :00 the Medical morning Branch for 30 days. metoprolol 2022- Yes [id number] 25mg Take 1 [facility] succinate 2-28 -31 tablet by ity of XL 25 mg 24 00:00: 04:59 mouth at [place] hr tablet 00 :00 bedtime Medical for 30 Branch days. furosemide 2022- Yes [id number] 40mg Take 1 [facility] 40 mg 2-28 -31 tablet by ity of tablet 00:00: 04:59 mouth in [place] 00 :00 the Medical morning Branch for 30 days. metoprolol 2022- Yes [id number] 25mg Take 1 [facility] succinate 2-09 07- tablet by ity of XL 25 mg 24 00:00: 04:59 mouth at [place] hr tablet 00 :00 bedtime Medical for 30 Branch days. furosemide 2022- Yes [id number] 40mg Take 1 [facility] 40 mg 2-09 07- tablet by ity of tablet 00:00: 04:59 mouth in [place] 00 :00 the Medical morning Branch for 30 days. metoprolol 2022- Yes [id number] 25mg Take 1 [facility] succinate 06-11- tablet by ity of XL 25 mg 24 00:00: 04:59 mouth at [place] hr tablet 00 :00 bedtime Medical for 30 Branch days. furosemide 2022- Yes [id number] 40mg Take 1 [facility] 40 mg 06-11- tablet by ity of tablet 00:00: 04:59 mouth in [place] 00 :00 the Medical morning Branch for 30 days. metoprolol 2022- Yes [id number] 25mg Take 1 [facility] succinate 06-11- tablet by ity of XL 25 mg 24 00:00: 04:59 mouth at [place] hr tablet 00 :00 bedtime Medical for 30 Branch days. furosemide 2022- Yes [id number] 40mg Take 1 [facility] 40 mg 06-11- tablet by ity of tablet 00:00: 04:59 mouth in [place] 00 :00 the Medical morning Branch for 30 days. metoprolol 2022- Yes [id number] 25mg Take 1 [facility] succinate 2-09 07- tablet by ity of XL 25 mg 24 00:00: 04:59 mouth at [place] hr tablet 00 :00 bedtime Medical for 30 Branch days. furosemide 2022- Yes [id number] 40mg Take 1 [facility] 40 mg 2-09 07- tablet by ity of tablet 00:00: 04:59 mouth in [place] 00 :00 the Medical morning Branch for 30 days. metoprolol 2022- Yes [id number] 25mg Take 1 [facility] succinate 06-11- tablet by ity of XL 25 mg 24 00:00: 04:59 mouth at [place] hr tablet 00 :00 bedtime Medical for 30 Branch days. furosemide 2022- Yes [id number] 40mg Take 1 [facility] 40 mg 06-11 tablet by ity of tablet 00:00: 04:59 mouth in [place] 00 :00 the Medical morning Branch for 30 days. metoprolol 2022- Yes [id number] 25mg Take 1 [facility] succinate 06-11 tablet by ity of XL 25 mg 24 00:00: 04:59 mouth at [place] hr tablet 00 :00 bedtime Medical for 30 Branch days. furosemide 2022- Yes [id number] 40mg Take 1 [facility] 40 mg 06-11 tablet by ity of tablet 00:00: 04:59 mouth in [place] 00 :00 the Medical morning Branch for 30 days. metoprolol 2022- Yes [id number] 25mg Take 1 [facility] succinate 06-11 tablet by ity of XL 25 mg 24 00:00: 04:59 mouth at [place] hr tablet 00 :00 bedtime Medical for 30 Branch days. furosemide 2022- Yes [id number] 40mg Take 1 [facility] 40 mg 06-11 tablet by ity of tablet 00:00: 04:59 mouth in [place] 00 :00 the Medical morning Branch for 30 days. magnesium 2022- Yes 400mg 400 mg, Uni vers oxide 06-10 Oral, BID, ity of (MAG-OX 15:15: 13:59 8 doses, [place] 400) tablet 00 :00 First dose Me dical 400 mg on Mon Branch 06/10/22 at 0915, Last dose on [place] 06/13/22 at 2000, Routine KCL 2022-0 Yes 40meq 40 mEq, Univers (KLOR-CON 06-09 Oral, ity of M20) tablet 15:00: DAILY, [place] 40 mEq 00 First dose Medical on Sun Branch 06/09/22 at 0900, Until Discontinu ed, Routine furosemide Yes 40mg 40 mg, Unive rs (LASIX) 06-09 Slow IV ity of injection 15:00: Push, [place] 40 mg 00 DAILY, Medical First dose Branch (after last modificati on) on 06/09/22 at 0900, Until Discontinu ed, DEANGELO polyethylen 0 Yes 17g 17 g, Unive rs e glycol 06-09 Oral, ity of 3350 powder 15:00: DAILY, [place] 17 g 00 First dose Medical on [place] Branch 06/09/22 at 0900, Until Discontinu ed, Routine metoprolol 0 Yes 25mg 25 mg, Unive rs succinate 06-09 Oral, QHS, ity of XL (TOPROL 03:00: First dose [place] XL) tablet 00 (after Medical 25 mg last Branch modificati on) on 06/08/22 at 2100, Until Discontinu ed, DEANGELO pantoprazol 0 Yes 40mg 40 mg, Univ ers e 06-09 Oral, ity of (PROTONIX) 01:15: DAILY, [place] EC tablet 00 First dose Medi akash 40 mg on Sat Branch 06/08/22 at 1915, Until Discontinu ed, Routine sodium 0 Yes 1{spray 1 [place], Univ ers chloride 06-09 } Nasal, ity of (OCEAN MIST 01:11: PRN, [place] NASAL) 0.65 32 Starting Medi akash % nasal on Sat Branch spray 1 06/08/22 at [place] 1911, Until Discontinu ed, Routine, dry nose lactulose 0 2022- No 30mL 30 mL, Unive rs (CEPHULAC) 06-08-25 Oral, ity of solution 30 16:45: 16:07 ONCE, 1 [place] mL 00 :00 dose, On Medical Sat Branch 06/08/22 at 1045, Routine sennosides- 2022-0 Yes 1{tbl} 1 tablet, Univers docusate 06-08 Oral, ity of sodium 16:00: DAILY, [place] (SENOKOT-S) 00 First dose Me dical 8.6-50 mg on Sat Branch per tablet 06/08/22 at 1 tablet 1000, Until Discontinu ed, Routine rosuvastati 0 Yes 20mg 20 mg, Univ ers n (CRESTOR) - Oral, QHS, it y of tablet 20 03:00: First dose [place] mg 00 on Fri Medical 06/07/22 at Branch 2100, Until Discontinu ed, Routine meloxicam Yes 7.5mg 7.5 mg, [facility] ers (MOBIC) 06-07 Oral, ity of tablet 7.5 15:00: DAILY, [place] mg 00 First dose Medical on Fri Branch 06/07/22 at 0900, Until Discontinu ed, Routine codeine-gua Yes 10mL 10 mL, [facility] ers ifenesin 06-07 Oral, ity of (ROBITUSSIN 08:38: TIDPRN, [place] AC) 10-100 48 Starting Medic al mg/5 mL on Fri Branch oral 06/07/22 at solution 10 0238, mL Until Discontinu ed, Routine, Cough aspirin Yes 81mg 81 mg, Univers chewable 06-07 Oral, QAM ity of tablet 81 07:00: WITH [place] mg 00 BREAKFAST, Medical First dose Branch on Fri06/07/22 at 0100, Until Discontinu ed, Routine insulin Yes 5U 5 Units, Univer s glargine 06-07 Subcutaneo ity o f (LANTUS 07:00: us, QHS, [place] U-100) 00 First dose Medical injection 5 on Fri Branch Units 06/07/22 at 0100, Until Discontinu ed, Routine furosemide 2022- No 40mg 40 mg, [facility] ers (LASIX) 06-0726 Slow IV ity of injection 07:00: 04:16 Push, [place] 40 mg 00 :29 Q12H, Medical First dose Branch (after last reorder) on Fri06/07/22 at 0100, Until Discontinu ed, DEANGELO metoprolol 2022- No 50mg 50 mg, [facility] ers succinate 06-07-25 Oral, QHS, ity of XL (TOPROL 07:00: 16:47 First dose [place] XL) tablet 00 :40 on Fri Medical 50 mg 06/07/22 at Branch 0100, Until Discontinu ed, DEANGELO Sliding Yes Subcutaneo [facility] ers Scale 2-23 us, TID ity of Insulin - 23:00: MEALS+HS, [place] Lispro 00 First dose Medical (HumaLOG) + on [place] Branch Fsbg 06/06/22 at Testing 1700, Until Discontinu ed, Routine enoxaparin Yes 40mg 40 mg, Unive rs (LOVENOX) 06-06 Subcutaneo ity of injection 23:00: us, DAILY, [place] 40 mg 00 First dose Medical on [place] Branch 06/06/22 at 1700, Until Discontinu ed, Routine glucagon Yes 1mg 1 mg, Univers (GLUCAGEN 06-06 Intramuscu ity of DIAGNOSTIC 20:40: lar, PRN, [place] KIT) 45 Starting Medical injection 1 on [place] Branch mg 06/06/22 at 1440, Until Discontinu ed, DEANGELO, Blood Glucose < or = 70 mg/dL and patient is NPO, unable to swallow or has mental changes. dextrose 50 Yes 25mL 25 mL, Univ ers % in water 06-06 Slow IV ity of (D50W) 20:40: Push, PRN, [place] injection 45 Starting Medica l 25 mL on [place] Branch 06/06/22 at 1440, Until Discontinu ed, DEANGELO, Blood Glucose < or = 70 mg/dL and patient is NPO, unable to swallow or has mental status changes. acetaminoph Yes 650mg 650 mg, Un wendy en 06-06 Oral, ity of (TYLENOL) 20:40: Q6HPRN, [place] tablet 650 17 Starting Medic al mg on [place] Branch 06/06/22 at 1440, Until Discontinu ed, Routine, Pain (scale 1-3) furosemide 2022- No 40mg 40 mg, IV U nivers (LASIX) 06-06 Push, ity of injection 18:15: 19:11 ONCE, 1 [place] 40 mg 00 :00 dose, On Medical [place] Branch 06/06/22 at 1215, DEANGELO doxycycline 2022- No doxycyclin Univers hyclate 100 06-01 e hyclate it y of mg capsule 13:56: 00:00 100 mg [place] 01 :00 capsule [facility] Branch nirmatrelvi 2022- No [id number] 2{tbl} Take 2 Univers r-ritonavir 06-01-28 tablets by i ty of (PAXLOVID, 00:00: 00:00 mouth in [place] EUA,) 00 :00 the Medical 150-100 mg morning Branch tablet and 2 tablets in the evening. Do all this for 5 days. nirmatrelvi 2022- Yes [id number] 2{tbl} Take 2 Univers r-ritonavir 2-18 -24 tablets by i ty of (PAXLOVID, 00:00: 05:59 mouth in [place] EUA,) 00 :00 the Medical 150-100 mg morning Branch tablet and 2 tablets in the evening. Do all this for 5 days. nirmatrelvi 2022- Yes [id number] 2{tbl} Take 2 Univers r-ritonavir 2-18 -24 tablets by i ty of (PAXLOVID, 00:00: 05:59 mouth in [place] EUA,) 00 :00 the Medical 150-100 mg morning Branch tablet and 2 tablets in the evening. Do all this for 5 days. dapaglifloz 2022-0 Yes [id number] TAKE 1 [facility] in 2-14 TABLET BY [facility] 00:00: MOUTH [place] 10 mg 00 DAILY. Medical tablet STOP Branch JARDIANCE. dapaglifloz 2022-0 Yes [id number] TAKE 1 Univers in 2-14 TABLET BY ity of (FARXIGA) 00:00: MOUTH [place] 10 mg 00 DAILY. Medical tablet STOP Branch JARDIANCE. dapaglifloz 2022-0 Yes [id number] TAKE 1 Univers in 2-14 TABLET BY ity [facility] 00:00: MOUTH [place] 10 mg 00 DAILY. Medical tablet STOP Branch JARDIANCE. dapaglifloz 2022-0 2022- No [id number] TAKE 1 Univers in 2-14 02-28 TABLET BY ity of ([facility]) 00:00: 00:00 MOUTH [place] 10 mg 00 :00 DAILY. Medical tablet STOP Branch JARDIANCE. magnesium 0 Yes [id number] TAKE 2 U nivers oxide 400 2-08 TABLETS BY ity of mg (241.3 00:00: MOUTH 4 [place] mg 00 TIMES Medical magnesium) DAILY Branch tablet Insulin 0 Yes [id number] Use as Univ ers Clear, 2-08 directed ity of Disposable, 00:00: once daily [place] (RELION PEN 00 to inject Med ical NEEDLES) 32 insulin; Bran ch gauge x E11.65 5/32" Ndle glipiZIDE 2022-0 Yes [id number] 10mg Take 1 Un wendy XL 10 mg 24 2-08 tablet by ity of hr tablet 00:00: mouth [place] 00 daily with Medical breakfast. Branch STOP GLIMEPIRID E. magnesium 2022-0 Yes [id number] TAKE 2 U nivers oxide 400 2-08 TABLETS BY ity of mg (241.3 00:00: MOUTH 4 [place] mg 00 TIMES Medical magnesium) DAILY Branch tablet Insulin 2022-0 Yes [id number] Use as Univ ers Clear, 2-08 directed ity of Disposable, 00:00: once daily [place] (RELION PEN 00 to inject Med ical NEEDLES) 32 insulin; Bran ch gauge x E11.65 5/32" Ndle glipiZIDE 2022-0 Yes [id number] 10mg Take 1 Un wendy XL 10 mg 24 2-08 tablet by ity of hr tablet 00:00: mouth [place] 00 daily with Medical breakfast. Branch STOP GLIMEPIRID E. magnesium 2022-0 Yes [id number] TAKE 2 U nivers oxide 400 2-08 TABLETS BY ity of mg (241.3 00:00: MOUTH 4 [place] mg 00 TIMES Medical magnesium) DAILY Branch tablet Insulin 2022-0 Yes [id number] Use as Univ ers Clear, 2-08 directed ity of Disposable, 00:00: once daily [place] (RELION PEN 00 to inject Med ical NEEDLES) 32 insulin; Bran ch gauge x E11.65 5/32" Ndle glipiZIDE 2022-0 Yes [id number] 10mg Take 1 Un wendy XL 10 mg 24 2-08 tablet by ity of hr tablet 00:00: mouth [place] 00 daily with Medical breakfast. Branch STOP GLIMEPIRID E. magnesium 2022-0 Yes [id number] TAKE 2 U nivers oxide 400 2-08 TABLETS BY ity of mg (241.3 00:00: MOUTH 4 [place] mg 00 TIMES Medical magnesium) DAILY Branch tablet Insulin 2022-0 Yes [id number] Use as Univ ers Clear, 2-08 directed ity of Disposable, 00:00: once daily [place] (RELION PEN 00 to inject Med ical NEEDLES) 32 insulin; Bran ch gauge x E11.65 32" Ndle glipiZIDE 0 Yes [id number] 10mg Take 1 Un wendy XL 10 mg 24 2-08 tablet by ity of hr tablet 00:00: mouth [place] 00 daily with Medical breakfast. Branch STOP GLIMEPIRID E. magnesium Yes [id number] TAKE 2 U nivers oxide 400 2-08 TABLETS BY ity of mg (241.3 00:00: MOUTH 4 [place] mg 00 TIMES Medical magnesium) DAILY Branch tablet Insulin Yes [id number] Use as Univ ers Clear, 2-08 directed ity of Disposable, 00:00: once daily [place] (RELION PEN 00 to inject Med ical NEEDLES) 32 insulin; Bran ch gauge x E11.65 " Ndle glipiZIDE Yes [id number] 10mg Take 1 Un wend[place] XL 10 mg 24 2-08 tablet by ity of hr tablet 00:00: mouth [place] 00 daily with Medical breakfast. Branch STOP GLIMEPIRID E. magnesium Yes [id number] TAKE 2 U nivers oxide 400 2-08 TABLETS BY ity of mg (241.3 00:00: MOUTH 4 [place] mg 00 TIMES Medical magnesium) DAILY Branch tablet Insulin Yes [id number] Use as Univ ers Clear, 2-08 directed ity of Disposable, 00:00: once daily [place] (RELION PEN 00 to inject Med ical NEEDLES) 32 insulin; [place] ch gauge x E11.65 " Ndle glipiZIDE 0 Yes [id number] 10mg Take 1 Un [place] XL 10 mg 24 2-08 tablet by ity of hr tablet 00:00: mouth [place] 00 daily with Medical breakfast. Branch STOP GLIMEPIRID E. magnesium Yes [id number] TAKE 2 U nivers oxide 400 2-08 TABLETS BY ity of mg (241.3 00:00: MOUTH 4 [place] mg 00 TIMES Medical magnesium) DAILY Branch tablet Insulin 0 Yes [id number] Use as Univ ers Clear, 2-08 directed ity of Disposable, 00:00: once daily [place] (RELION PEN 00 to inject Med ical NEEDLES) 32 insulin; Bran ch gauge x E11.65 32" Ndle glipiZIDE 0 Yes [id number] 10mg Take 1 Un [place] XL 10 mg 24 2-08 tablet by ity of hr tablet 00:00: mouth [place] 00 daily with Medical breakfast. Branch STOP GLIMEPIRID E. magnesium Yes [id number] TAKE 2 U nivers oxide 400 2-08 TABLETS BY ity of mg (241.3 00:00: MOUTH 4 [place] mg 00 TIMES Medical magnesium) DAILY Branch tablet Insulin Yes [id number] Use as Univ ers Clear, 2-08 directed ity of Disposable, 00:00: once daily [place] (RELION PEN 00 to inject Med ical NEEDLES) 32 insulin; Bran ch gauge x E11.65 5/32" Ndle glipiZIDE 0 Yes [id number] 10mg Take 1 Un [place] XL 10 mg 24 2-08 tablet by ity of hr tablet 00:00: mouth [place] 00 daily with Medical breakfast. Branch STOP GLIMEPIRID E. magnesium Yes [id number] TAKE 2 U nivers oxide 400 2-08 TABLETS BY ity of mg (241.3 00:00: MOUTH 4 [place] mg 00 TIMES Medical magnesium) DAILY Branch tablet Insulin Yes [id number] Use as Univ ers Clear, 2-08 directed ity of Disposable, 00:00: once daily [place] (RELION PEN 00 to inject Med ical NEEDLES) 32 insulin; Bran ch gauge x E11.65 32" Ndle glipiZIDE Yes [id number] 10mg Take 1 Un [place] XL 10 mg 24 2-08 tablet by ity of hr tablet 00:00: mouth [place] 00 daily with Medical breakfast. Branch STOP GLIMEPIRID E. magnesium Yes [id number] TAKE 2 U nivers oxide 400 2-08 TABLETS BY ity of mg (241.3 00:00: MOUTH 4 [place] mg 00 TIMES Medical magnesium) DAILY Branch tablet Insulin Yes [id number] Use as Univ ers Clear, 2-08 directed ity of Disposable, 00:00: once daily [place] (RELION PEN 00 to inject Med ical NEEDLES) 32 insulin; Bran ch gauge x E11.65 5/32" Ndle glipiZIDE 2022-0 Yes [id number] 10mg Take 1 [facility] [place] XL 10 mg 24 2-08 tablet by ity of hr tablet 00:00: mouth [place] 00 daily with Medical breakfast. Branch STOP GLIMEPIRID E. magnesium Yes [id number] TAKE 2 U nivers oxide 400 2-08 TABLETS BY ity of mg (241.3 00:00: MOUTH 4 [place] mg 00 TIMES Medical magnesium) DAILY Branch tablet Insulin Yes [id number] Use as Univ ers Clear, 2-08 directed ity of Disposable, 00:00: once daily [place] (RELION PEN 00 to inject Med ical NEEDLES) 32 insulin; Bran ch gauge x E11.65 5/32" Ndle glipiZIDE Yes [id number] 10mg Take 1 Un [place] XL 10 mg 24 2-08 tablet by ity of hr tablet 00:00: mouth [place] 00 daily with Medical breakfast. Branch STOP GLIMEPIRID E. magnesium Yes [id number] TAKE 2 U nivers oxide 400 2-08 TABLETS BY ity of mg (241.3 00:00: MOUTH 4 [place] mg 00 TIMES Medical magnesium) DAILY Branch tablet Insulin Yes [id number] Use as Univ ers Clear, 2-08 directed ity of Disposable, 00:00: once daily [place] (RELION PEN 00 to inject Med ical NEEDLES) 32 insulin; Bran ch gauge x E11.65 5/32" Ndle glipiZIDE 2022- Yes [id number] 10mg Take 1 [place] XL 10 mg 24 2-08 tablet by ity of hr tablet 00:00: mouth [place] 00 daily with Medical breakfast. Branch STOP GLIMEPIRID E. magnesium 0 Yes [id number] TAKE 2 U nivers oxide 400 2-08 TABLETS BY ity of mg (241.3 00:00: MOUTH 4 [place] mg 00 TIMES Medical magnesium) DAILY Branch tablet Insulin Yes [id number] Use as Univ ers Clear, 2-08 directed ity of Disposable, 00:00: once daily [place] (RELION PEN 00 to inject Med ical NEEDLES) 32 insulin; Bran ch gauge x E11.65 5/32" Ndle glipiZIDE 0 Yes [id number] 10mg Take 1 Un [place] XL 10 mg 24 2-08 tablet by ity of hr tablet 00:00: mouth [place] 00 daily with Medical breakfast. Branch STOP GLIMEPIRID E. magnesium 2023-0 Yes [id number] TAKE 2 U nivers oxide 400 2-08 TABLETS BY ity of mg (241.3 00:00: MOUTH 4 [place] mg 00 TIMES Medical magnesium) DAILY Branch tablet Insulin Yes [id number] Use as Univ ers Clear, 2-08 directed ity of Disposable, 00:00: once daily [place] (RELION PEN 00 to inject Med ical NEEDLES) 32 insulin; Bran ch gauge x E11.65 5/32" Ndle glipiZIDE 2022-0 Yes [id number] 10mg Take 1 [place] XL 10 mg 24 2-08 tablet by ity of hr tablet 00:00: mouth [place] 00 daily with Medical breakfast. Branch STOP GLIMEPIRID E. magnesium 0 Yes [id number] TAKE 2 U nivers oxide 400 2-08 TABLETS BY ity of mg (241.3 00:00: MOUTH 4 [place] mg 00 TIMES Medical magnesium) DAILY Branch tablet Insulin Yes [id number] Use as Univ ers Clear, 2-08 directed ity of Disposable, 00:00: once daily [place] (RELION PEN 00 to inject Med ical NEEDLES) 32 insulin; Bran ch gauge x E11.65 32" Ndle glipiZIDE 2022-0 Yes [id number] 10mg Take 1 [place] XL 10 mg 24 2-08 tablet by ity of hr tablet 00:00: mouth [place] 00 daily with Medical breakfast. Branch STOP GLIMEPIRID E. magnesium 0 Yes [id number] TAKE 2 U nivers oxide 400 2-08 TABLETS BY ity of mg (241.3 00:00: MOUTH 4 [place] mg 00 TIMES Medical magnesium) DAILY Branch tablet Insulin 0 Yes [id number] Use as Univ ers Clear, 2-08 directed ity of Disposable, 00:00: once daily [place] (RELION PEN 00 to inject Med ical NEEDLES) 32 insulin; Bran ch gauge x E11.65 32" Ndle glipiZIDE 2022-0 Yes [id number] 10mg Take 1 Un [place] XL 10 mg 24 2-08 tablet by ity of hr tablet 00:00: mouth [place] 00 daily with Medical breakfast. Branch STOP GLIMEPIRID E. magnesium 2022-0 Yes [id number] TAKE 2 U nivers oxide 400 2-08 TABLETS BY ity of mg (241.3 00:00: MOUTH 4 [place] mg 00 TIMES Medical magnesium) DAILY Branch tablet Insulin Yes [id number] Use as Univ ers Clear, 2-08 directed ity of Disposable, 00:00: once daily [place] (RELION PEN 00 to inject Med ical NEEDLES) 32 insulin; Bran ch gauge x E11.65 " Ndle glipiZIDE Yes [id number] 10mg Take 1 [place] XL 10 mg 24 2-08 tablet by ity of hr tablet 00:00: mouth [place] 00 daily with Medical breakfast. Branch STOP GLIMEPIRID E. magnesium Yes [id number] TAKE 2 U nivers oxide 400 2-08 TABLETS BY ity of mg (241.3 00:00: MOUTH 4 [place] mg 00 TIMES Medical magnesium) DAILY Branch tablet Insulin Yes [id number] Use as Univ ers Clear, 2-08 directed ity of Disposable, 00:00: once daily [place] (RELION PEN 00 to inject Med ical NEEDLES) 32 insulin; Bran ch gauge x E11.65 " Ndle glipiZIDE 0 Yes [id number] 10mg Take 1 Un [place] XL 10 mg 24 2-08 tablet by ity of hr tablet 00:00: mouth [place] 00 daily with Medical breakfast. Branch STOP GLIMEPIRID E. magnesium Yes [id number] TAKE 2 U nivers oxide 400 2-08 TABLETS BY ity of mg (241.3 00:00: MOUTH 4 [place] mg 00 TIMES Medical magnesium) DAILY Branch tablet Insulin Yes [id number] Use as Univ ers Clear, 2-08 directed ity of Disposable, 00:00: once daily [place] (RELION PEN 00 to inject Med ical NEEDLES) 32 insulin; Bran ch gauge x E11.65 " Ndle glipiZIDE Yes [id number] 10mg Take 1 Un wendy XL 10 mg 24 2-08 tablet by ity of hr tablet 00:00: mouth [place] 00 daily with Medical breakfast. Branch STOP GLIMEPIRID E. magnesium Yes [id number] TAKE 2 U nivers oxide 400 2-08 TABLETS BY ity of mg (241.3 00:00: MOUTH 4 [place] mg 00 TIMES Medical magnesium) DAILY Branch tablet Insulin Yes [id number] Use as Univ ers Clear, 2-08 directed ity of Disposable, 00:00: once daily [place] (RELION PEN 00 to inject Med ical NEEDLES) 32 insulin; Bran ch gauge x E11.65 5/32" Ndle glipiZIDE 2022-0 Yes [id number] 10mg Take 1 Un wendy XL 10 mg 24 2-08 tablet by ity of hr tablet 00:00: mouth [place] 00 daily with Medical breakfast. Branch STOP GLIMEPIRID E. magnesium 2022-0 Yes [id number] TAKE 2 U nivers oxide 400 2-08 TABLETS BY ity of mg (241.3 00:00: MOUTH 4 [place] mg 00 TIMES Medical magnesium) DAILY Branch tablet Insulin Yes [id number] Use as Univ ers Clear, 2-08 directed ity of Disposable, 00:00: once daily [place] (RELION PEN 00 to inject Med ical NEEDLES) 32 insulin; Bran ch gauge x E11.65 5/32" Ndle glipiZIDE 2022-0 Yes [id number] 10mg Take 1 Un wendy XL 10 mg 24 2-08 tablet by ity of hr tablet 00:00: mouth [place] 00 daily with Medical breakfast. Branch STOP GLIMEPIRID E. magnesium 2022-0 Yes [id number] TAKE 2 U nivers oxide 400 2-08 TABLETS BY ity of mg (241.3 00:00: MOUTH 4 [place] mg 00 TIMES Medical magnesium) DAILY Branch tablet Insulin 0 Yes [id number] Use as Univ ers Clear, 2-08 directed ity of Disposable, 00:00: once daily [place] (RELION PEN 00 to inject Med ical NEEDLES) 32 insulin; Bran ch gauge x E11.65 5/32" Ndle glipiZIDE 2022-0 Yes [id number] 10mg Take 1 Un wendy XL 10 mg 24 2-08 tablet by ity of hr tablet 00:00: mouth [place] 00 daily with Medical breakfast. Branch STOP GLIMEPIRID E. magnesium 2022-0 Yes [id number] TAKE 2 U nivers oxide 400 2-08 TABLETS BY ity of mg (241.3 00:00: MOUTH 4 [place] mg 00 TIMES Medical magnesium) DAILY Branch tablet Insulin 2022-0 Yes [id number] Use as Univ ers Clear, 2-08 directed ity of Disposable, 00:00: once daily [place] (RELION PEN 00 to inject Med ical NEEDLES) 32 insulin; [place] ch gauge x E11.65 " Ndle glipiZIDE Yes [id number] 10mg Take 1 Un wendy XL 10 mg 24 2-08 tablet by ity of hr tablet 00:00: mouth [place] 00 daily with Medical breakfast. Branch STOP GLIMEPIRID E. magnesium Yes [id number] TAKE 2 U nivers oxide 400 2-08 TABLETS BY ity of mg (241.3 00:00: MOUTH 4 [place] mg 00 TIMES Medical magnesium) DAILY Branch tablet Insulin Yes [id number] Use as Univ ers Clear, 2-08 directed ity of Disposable, 00:00: once daily [place] (RELION PEN 00 to inject Med ical NEEDLES) 32 insulin; [place] ch gauge x E11.65 " Ndle glipiZIDE Yes [id number] 10mg Take 1 Un wend[facility] XL 10 mg 24 2-08 tablet by ity of hr tablet 00:00: mouth [place] 00 daily with Medical breakfast. Branch STOP GLIMEPIRID E. magnesium Yes [id number] TAKE 2 U nivers oxide 400 2-08 TABLETS BY ity of mg (241.3 00:00: MOUTH 4 [place] mg 00 TIMES Medical magnesium) DAILY Branch tablet Insulin Yes [id number] Use as Univ ers Clear, 2-08 directed ity of Disposable, 00:00: once daily [place] (RELION PEN 00 to inject Med ical NEEDLES) 32 insulin; [place] ch gauge x E11.65 " Ndle glipiZIDE Yes [id number] 10mg Take 1 Un wend[facility] XL 10 mg 24 2-08 tablet by ity of hr tablet 00:00: mouth [place] 00 daily with Medical breakfast. Branch STOP GLIMEPIRID E. magnesium Yes [id number] TAKE 2 U nivers oxide 400 2-08 TABLETS BY ity of mg (241.3 00:00: MOUTH 4 [place] mg 00 TIMES Medical magnesium) DAILY Branch tablet Insulin Yes [id number] Use as Univ ers Clear, 2-08 directed ity of Disposable, 00:00: once daily [place] (RELION PEN 00 to inject Med ical NEEDLES) 32 insulin; Bran ch gauge x E11.65 " Ndle glipiZIDE Yes [id number] 10mg Take 1 Un wendy XL 10 mg 24 2-08 tablet by ity of hr tablet 00:00: mouth [place] 00 daily with Medical breakfast. Branch STOP GLIMEPIRID E. magnesium Yes [id number] TAKE 2 U nivers oxide 400 2-08 TABLETS BY ity of mg (241.3 00:00: MOUTH 4 [place] mg 00 TIMES Medical magnesium) DAILY Branch tablet Insulin 0 Yes [id number] Use as Univ ers Clear, 2-08 directed ity of Disposable, 00:00: once daily [place] (RELION PEN 00 to inject Med ical NEEDLES) 32 insulin; Bran ch gauge x E11.65 /32" Ndle glipiZIDE 0 Yes [id number] 10mg Take 1 Un wendy XL 10 mg 24 2-08 tablet by ity of hr tablet 00:00: mouth [place] 00 daily with Medical breakfast. Branch STOP GLIMEPIRID E. magnesium Yes [id number] TAKE 2 U nivers oxide 400 2-08 TABLETS BY ity of mg (241.3 00:00: MOUTH 4 [place] mg 00 TIMES Medical magnesium) DAILY Branch tablet Insulin Yes [id number] Use as Univ ers Clear, 2-08 directed ity of Disposable, 00:00: once daily [place] (RELION PEN 00 to inject Med ical NEEDLES) 32 insulin; Bran ch gauge x E11.65 " Ndle glipiZIDE Yes [id number] 10mg Take 1 Un wendy XL 10 mg 24 2-08 tablet by ity of hr tablet 00:00: mouth [place] 00 daily with Medical breakfast. Branch STOP GLIMEPIRID E. magnesium Yes [id number] TAKE 2 U nivers oxide 400 2-08 TABLETS BY ity of mg (241.3 00:00: MOUTH 4 [place] mg 00 TIMES Medical magnesium) DAILY Branch tablet Insulin Yes [id number] Use as Univ ers Clear, 2-08 directed ity of Disposable, 00:00: once daily [place] (RELION PEN 00 to inject Med ical NEEDLES) 32 insulin; Bran ch gauge x E11.65 5/32" Ndle glipiZIDE 2022-0 Yes [id number] 10mg Take 1 Un wendy XL 10 mg 24 2-08 tablet by ity of hr tablet 00:00: mouth [place] 00 daily with Medical breakfast. Branch STOP GLIMEPIRID E. magnesium 0 Yes [id number] TAKE 2 U nivers oxide 400 2-08 TABLETS BY ity of mg (241.3 00:00: MOUTH 4 [place] mg 00 TIMES Medical magnesium) DAILY Branch tablet Insulin 0 Yes [id number] Use as Univ ers Clear, 2-08 directed ity of Disposable, 00:00: once daily [place] (RELION PEN 00 to inject Med ical NEEDLES) 32 insulin; Bran ch gauge x E11.65 532" Ndle glipiZIDE 2022-0 Yes [id number] 10mg Take 1 Un wendy XL 10 mg 24 2-08 tablet by ity of hr tablet 00:00: mouth [place] 00 daily with Medical breakfast. Branch STOP GLIMEPIRID E. magnesium Yes [id number] TAKE 2 U nivers oxide 400 2-08 TABLETS BY ity of mg (241.3 00:00: MOUTH 4 [place] mg 00 TIMES Medical magnesium) DAILY Branch tablet Insulin Yes [id number] Use as Univ ers Clear, 2-08 directed ity of Disposable, 00:00: once daily [place] (RELION PEN 00 to inject Med ical NEEDLES) 32 insulin; Bran ch gauge x E11.65 32" Ndle glipiZIDE 2022-0 Yes [id number] 10mg Take 1 Un wendy XL 10 mg 24 2-08 tablet by ity of hr tablet 00:00: mouth [place] 00 daily with Medical breakfast. Branch STOP GLIMEPIRID E. magnesium 2022-0 Yes [id number] TAKE 2 U nivers oxide 400 2-08 TABLETS BY ity of mg (241.3 00:00: MOUTH 4 [place] mg 00 TIMES Medical magnesium) DAILY Branch tablet Insulin 0 Yes [id number] Use as Univ ers Clear, 2-08 directed ity of Disposable, 00:00: once daily [place] (RELION PEN 00 to inject Med ical NEEDLES) 32 insulin; Bran ch gauge x E11.65 5/32" Ndle glipiZIDE 2022-0 Yes [id number] 10mg Take 1 Un wendy XL 10 mg 24 2-08 tablet by ity of hr tablet 00:00: mouth [place] 00 daily with Medical breakfast. Branch STOP GLIMEPIRID E. magnesium 2023-0 Yes [id number] TAKE 2 U nivers oxide 400 2-08 TABLETS BY ity of mg (241.3 00:00: MOUTH 4 [place] mg 00 TIMES Medical magnesium) DAILY Branch tablet Insulin Yes [id number] Use as Univ ers Clear, 2-08 directed ity of Disposable, 00:00: once daily [place] (RELION PEN 00 to inject Med ical NEEDLES) 32 insulin; Bran ch gauge x E11.65 5/32" Ndle glipiZIDE Yes [id number] 10mg Take 1 Un wendy XL 10 mg 24 2-08 tablet by ity of hr tablet 00:00: mouth [place] 00 daily with Medical breakfast. Branch STOP GLIMEPIRID E. magnesium Yes [id number] TAKE 2 U nivers oxide 400 2-08 TABLETS BY ity of mg (241.3 00:00: MOUTH 4 [place] mg 00 TIMES Medical magnesium) DAILY Branch tablet Insulin Yes [id number] Use as Univ ers Clear, 2-08 directed ity of Disposable, 00:00: once daily [place] (RELION PEN 00 to inject Med ical NEEDLES) 32 insulin; Bran ch gauge x E11.65 32" Ndle glipiZIDE 2022-0 Yes [id number] 10mg Take 1 Un wendy XL 10 mg 24 2-08 tablet by ity of hr tablet 00:00: mouth [place] 00 daily with Medical breakfast. Branch STOP GLIMEPIRID E. magnesium 0 Yes [id number] TAKE 2 U nivers oxide 400 2-08 TABLETS BY ity of mg (241.3 00:00: MOUTH 4 [place] mg 00 TIMES Medical magnesium) DAILY Branch tablet Insulin 0 Yes [id number] Use as Univ ers Clear, 2-08 directed ity of Disposable, 00:00: once daily [place] (RELION PEN 00 to inject Med ical NEEDLES) 32 insulin; Bran ch gauge x E11.65 5/32" Ndle glipiZIDE 2022-0 Yes [id number] 10mg Take 1 Un wendy XL 10 mg 24 2-08 tablet by ity of hr tablet 00:00: mouth [place] 00 daily with Medical breakfast. Branch STOP GLIMEPIRID E. magnesium 2022-0 Yes [id number] TAKE 2 U nivers oxide 400 2-08 TABLETS BY ity of mg (241.3 00:00: MOUTH 4 [place] mg 00 TIMES Medical magnesium) DAILY Branch tablet Insulin Yes [id number] Use as Univ ers Clear, 2-08 directed ity of Disposable, 00:00: once daily [place] (RELION PEN 00 to inject Med ical NEEDLES) 32 insulin; Bran ch gauge x E11.65 5/32" Ndle glipiZIDE 2022-0 Yes [id number] 10mg Take 1 Un wendy XL 10 mg 24 2-08 tablet by ity of hr tablet 00:00: mouth [place] 00 daily with Medical breakfast. Branch STOP GLIMEPIRID E. Insulin 0 Yes [id number] Use as Univ ers Clear, 2-08 directed ity of Disposable, 00:00: once daily [place] (RELION PEN 00 to inject Med ical NEEDLES) 32 insulin; Bran ch gauge x E11.65 5/32" Ndle glipiZIDE 2022-0 Yes [id number] 10mg Take 1 Un wendy XL 10 mg 24 2-08 tablet by ity of hr tablet 00:00: mouth [place] 00 daily with Medical breakfast. Branch STOP GLIMEPIRID E. Insulin Yes [id number] Use as Univ ers Clear, 2-08 directed ity of Disposable, 00:00: once daily [place] (RELION PEN 00 to inject Med ical NEEDLES) 32 insulin; Bran ch gauge x E11.65 5/32" Ndle glipiZIDE 2022-0 Yes [id number] 10mg Take 1 Un wendy XL 10 mg 24 2-08 tablet by ity of hr tablet 00:00: mouth [place] 00 daily with Medical breakfast. Branch STOP GLIMEPIRID E. Insulin 0 Yes [id number] Use as Univ ers Clear, 2-08 directed ity of Disposable, 00:00: once daily [place] (RELION PEN 00 to inject Med ical NEEDLES) 32 insulin; Bran ch gauge x E11.65 5/32" Ndle glipiZIDE 2022-0 Yes [id number] 10mg Take 1 Un wendy XL 10 mg 24 2-08 tablet by ity of hr tablet 00:00: mouth [place] 00 daily with Medical breakfast. Branch STOP GLIMEPIRID E. Insulin 0 Yes [id number] Use as Univ ers Clear, 2-08 directed ity of Disposable, 00:00: once daily [place] (RELION PEN 00 to inject Med ical NEEDLES) 32 insulin; Bran ch gauge x E11.65 " Ndle glipiZIDE 2022-0 Yes [id number] 10mg Take 1 Un wendy XL 10 mg 24 2-08 tablet by ity of hr tablet 00:00: mouth [place] 00 daily with Medical breakfast. Branch STOP GLIMEPIRID E. magnesium 2022-0 3- No [id number] TAKE 2 [facility] oxide 400 2-08 05-04 TABLETS BY ity of mg (241.3 00:00: 00:00 MOUTH 4 [place] mg 00 :00 TIMES Medical magnesium) DAILY Branch tablet lancets 33 2022-0 Yes [id number] Use as [facility] gauge Misc 2-07 directed. ity of 00:00: . [place] 00 Check once Medical daily Branch lancets 33 2022-0 Yes [id number] Use as [facility] gauge Misc 2-07 directed. ity of 00:00: . [place] 00 Check once Medical daily Branch lancets 33 2022-0 Yes [id number] Use as [facility] gauge Misc 2-07 directed. ity of 00:00: . [place] 00 Check once Medical daily Branch lancets 33 2022-0 Yes [id number] Use as [facility] gauge Misc 2-07 directed. ity of 00:00: . [place] 00 Check once Medical daily Branch lancets 33 2022-0 Yes [id number] Use as [facility] gauge Misc 2-07 directed. ity of 00:00: . [place] 00 Check once Medical daily Branch lancets 33 3-0 Yes [id number] Use as [facility] gauge Misc 2-07 directed. ity of 00:00: . [place] 00 Check once Medical daily Branch lancets 33 3-0 Yes [id number] Use as [facility] gauge Misc 2-07 directed. ity of 00:: . [place] 00 Check once Medical daily Branch lancets 33 3-0 Yes [id number] Use as [facility] gauge Misc 2-07 directed. ity of 00:00: . [place] 00 Check once Medical daily Branch lancets 33 3-0 Yes [id number] Use as [facility] gauge Misc 2-07 directed. ity of 00:00: . [place] 00 Check once Medical daily Branch lancets 33 2023-0 Yes [id number] Use as [facility] gauge Misc 2-07 directed. ity of 00:00: E11.21. [place] 00 Check once Medical daily Branch lancets 33 2023-0 Yes [id number] Use as [facility] gauge Misc 2-07 directed. ity of 00:00: E11.21. [place] 00 Check once Medical daily Branch lancets 33 2023-0 Yes [id number] Use as [facility] gauge Misc 2-07 directed. ity of 00:00: E11.21. [place] 00 Check once Medical daily Branch lancets 33 2023-0 Yes [id number] Use as [facility] gauge Misc 2-07 directed. ity of 00:00: E11.21. [place] 00 Check once Medical daily Branch lancets 33 2023-0 Yes [id number] Use as [facility] gauge Misc 2-07 directed. ity of 00:00: E11.21. [place] 00 Check once Medical daily Branch lancets 33 2023-0 Yes [id number] Use as [facility] gauge Misc 2-07 directed. ity of 00:00: E11.21. [place] 00 Check once Medical daily Branch lancets 33 2023-0 Yes [id number] Use as [facility] gauge Misc 2-07 directed. ity of 00:00: E11.21. [place] 00 Check once Medical daily Branch lancets 33 2023-0 Yes [id number] Use as [facility] gauge Misc 2-07 directed. ity of 00:00: E11.21. [place] 00 Check once Medical daily Branch lancets 33 2023-0 Yes [id number] Use as [facility] gauge Misc 2-07 directed. ity of 00:00: E11.21. [place] 00 Check once Medical daily Branch lancets 33 2023-0 Yes [id number] Use as [facility] gauge Misc 2-07 directed. ity of 00:00: E11.21. [place] 00 Check once Medical daily Branch lancets 33 2023-0 Yes [id number] Use as [facility] gauge Misc 2-07 directed. ity of 00:00: E11.21. [place] 00 Check once Medical daily Branch lancets 33 2023-0 Yes [id number] Use as [facility] gauge Misc 2-07 directed. ity of 00:00: E11.21. [place] 00 Check once Medical daily Branch lancets 33 2023-0 Yes [id number] Use as [facility] gauge Misc 2-07 directed. ity of 00:00: E11.21. [place] 00 Check once Medical daily Branch lancets 33 2023-0 Yes [id number] Use as [facility] gauge Misc 2-07 directed. ity of 00:00: E11.21. [place] 00 Check once Medical daily Branch lancets 33 2023-0 Yes [id number] Use as [facility] gauge Misc 2-07 directed. ity of 00:00: E11.21. [place] 00 Check once Medical daily Branch lancets 33 2023-0 Yes [id number] Use as [facility] gauge Misc 2-07 directed. ity of 00:00: E11.21. [place] 00 Check once Medical daily Branch lancets 33 2023-0 Yes [id number] Use as [facility] gauge Misc 2-07 directed. ity of 00:00: E11.. [place] 00 Check once Medical daily Branch lancets 33 2023-0 Yes [id number] Use as [facility] gauge Misc 2-07 directed. ity of 00:00: E11.. [place] 00 Check once Medical daily Branch lancets 33 2023-0 Yes [id number] Use as [facility] gauge Misc 2-07 directed. ity of 00:00: E11.21. [place] 00 Check once Medical daily Branch lancets 33 2023-0 Yes [id number] Use as [facility] gauge Misc 2-07 directed. ity of 00:00: E11.21. [place] 00 Check once Medical daily Branch lancets 33 2023-0 Yes [id number] Use as [facility] gauge Misc 2-07 directed. ity of 00:00: E11.21. [place] 00 Check once Medical daily Branch lancets 33 2023-0 Yes [id number] Use as [facility] gauge Misc 2-07 directed. ity of 00:00: E11.21. [place] 00 Check once Medical daily Branch lancets 33 2023-0 Yes [id number] Use as [facility] gauge Misc 2-07 directed. ity of 00:00: E11.21. [place] 00 Check once Medical daily Branch lancets 33 2023-0 Yes [id number] Use as [facility] gauge Misc 2-07 directed. ity of 00:00: E11.21. [place] 00 Check once Medical daily Branch lancets 33 2023-0 Yes [id number] Use as [facility] gauge Misc 2-07 directed. ity of 00:00: . [place] 00 Check once Medical daily Branch lancets 33 2023-0 Yes [id number] Use as [facility] gauge Misc 2-07 directed. ity of 00:00: . [place] 00 Check once Medical daily Branch lancets 33 2023-0 Yes [id number] Use as [facility] gauge Misc 2-07 directed. ity of 00:00: . [place] 00 Check once Medical daily Branch lancets 33 2023-0 Yes [id number] Use as [facility] gauge Misc 2-07 directed. ity of 00:00: . [place] 00 Check once Medical daily Branch lancets 33 2023-0 Yes [id number] Use as [facility] gauge Misc 2-07 directed. ity of 00:00: . [place] 00 Check once Medical daily Branch lancets 33 2023-0 Yes [id number] Use as [facility] gauge Misc 2-07 directed. ity of 00:00: . [place] 00 Check once Medical daily Branch lancets 33 2023-0 Yes [id number] Use as [facility] gauge Misc 2-07 directed. ity of 00:00: . [place] 00 Check once Medical daily Branch lancets 33 2023-0 Yes [id number] Use as [facility] gauge Misc 2-07 directed. ity of 00:00: . [place] 00 Check once Medical daily Branch metformin 3-0 Yes [id number] 1000mg Take 2 [facility] ER 500 mg 2-03 tablets by ity of 24 hr 00:00: mouth in [place] tablet 00 the Medical morning Branch and 2 tablets in the evening. Take with meals. rosuvastati 2022-0 Yes [id number] TAKE 1 [facility] n 20 mg 2-03 TABLET AT ity of tablet 00:00: BEDTIME, [place] [address] STOP Medical TAKING Branch ATORVASTAT IN metformin 2022-0 Yes [id number] 1000mg Take 2 [facility] ER 500 mg 2-03 tablets by ity of 24 hr 00:00: mouth in [place] tablet 00 the Medical morning Branch and 2 tablets in the evening. Take with meals. rosuvastati 2022-0 Yes [id number] TAKE 1 [facility] n 20 mg 2-03 TABLET AT ity of tablet 00:00: BEDTIME, [place] 00 STOP Medical TAKING Branch ATORVASTAT IN metformin Yes [id number] 1000mg Take 2 [facility] ER 500 mg 2-03 tablets by ity of 24 hr 00:00: mouth in [place] tablet 00 the Medical morning Branch and 2 tablets in the evening. Take with meals. rosuvastati Yes [id number] TAKE 1 [facility] n 20 mg 2-03 TABLET AT ity of tablet 00:00: BEDTIME, [place] 00 STOP Medical TAKING Branch ATORVASTAT IN metformin 0 Yes [id number] 1000mg Take 2 [facility] ER 500 mg 2-03 tablets by ity of 24 hr 00:00: mouth in [place] tablet 00 the Medical morning Branch and 2 tablets in the evening. Take with meals. rosuvastati Yes [id number] TAKE 1 [facility] n 20 mg 2-03 TABLET AT ity of tablet 00:00: BEDTIME, [place] [address] STOP Medical TAKING Branch ATORVASTAT IN metformin Yes [id number] 1000mg Take 2 [facility] ER 500 mg 2-03 tablets by ity of 24 hr 00:00: mouth in [place] tablet 00 the Medical morning Branch and 2 tablets in the evening. Take with meals. rosuvastati Yes [id number] TAKE 1 [facility] n 20 mg 2-03 TABLET AT ity of tablet 00:00: BEDTIME, [place] [address] STOP Medical TAKING Branch ATORVASTAT IN metformin 0 Yes [id number] 1000mg Take 2 [facility] ER 500 mg 2-03 tablets by ity of 24 hr 00:00: mouth in [place] tablet 00 the Medical morning Branch and 2 tablets in the evening. Take with meals. rosuvastati 0 Yes [id number] TAKE 1 [facility] n 20 mg 2-03 TABLET AT ity of tablet 00:00: BEDTIME, [place] [address] STOP Medical TAKING Branch ATORVASTAT IN metformin Yes [id number] 1000mg Take 2 [facility] ER 500 mg 2-03 tablets by ity of 24 hr 00:00: mouth in [place] tablet 00 the Medical morning Branch and 2 tablets in the evening. Take with meals. rosuvastati 0 Yes [id number] TAKE 1 [facility] n 20 mg 2-03 TABLET AT ity of tablet 00:00: BEDTIME, [place] [address] STOP Medical TAKING Branch ATORVASTAT IN metformin 0 Yes [id number] 1000mg Take 2 [facility] ER 500 mg 2-03 tablets by ity of 24 hr 00:00: mouth in [place] tablet 00 the Medical morning Branch and 2 tablets in the evening. Take with meals. rosuvastati Yes [id number] TAKE 1 [facility] n 20 mg 2-03 TABLET AT ity of tablet 00:00: BEDTIME, [place] 00 STOP Medical TAKING Branch ATORVASTAT IN metformin Yes [id number] 1000mg Take 2 [facility] ER 500 mg 2-03 tablets by ity of 24 hr 00:00: mouth in [place] tablet 00 the Medical morning Branch and 2 tablets in the evening. Take with meals. rosuvastati Yes [id number] TAKE 1 [facility] n 20 mg 2-03 TABLET AT ity of tablet 00:00: BEDTIME, [place] 00 STOP Medical TAKING Branch ATORVASTAT IN metformin Yes [id number] 1000mg Take 2 [facility] ER 500 mg 2-03 tablets by ity of 24 hr 00:00: mouth in [place] tablet 00 the Medical morning Branch and 2 tablets in the evening. Take with meals. rosuvastati Yes [id number] TAKE 1 [facility] n 20 mg 2-03 TABLET AT ity of tablet 00:00: BEDTIME, [place] 00 STOP Medical TAKING Branch ATORVASTAT IN metformin Yes [id number] 1000mg Take 2 [facility] ER 500 mg 2-03 tablets by ity of 24 hr 00:00: mouth in [place] tablet 00 the Medical morning Branch and 2 tablets in the evening. Take with meals. rosuvastati Yes [id number] TAKE 1 [facility] n 20 mg 2-03 TABLET AT ity of tablet 00:00: BEDTIME, [place] 00 STOP Medical TAKING Branch ATORVASTAT IN metformin 0 Yes [id number] 1000mg Take 2 [facility] ER 500 mg 2-03 tablets by ity of 24 hr 00:00: mouth in [place] tablet 00 the Medical morning Branch and 2 tablets in the evening. Take with meals. rosuvastati Yes [id number] TAKE 1 [facility] n 20 mg 2-03 TABLET AT ity of tablet 00:00: BEDTIME, [place] 00 STOP Medical TAKING Branch ATORVASTAT IN metformin 0 Yes [id number] 1000mg Take 2 [facility] ER 500 mg 2-03 tablets by ity of 24 hr 00:00: mouth in [place] tablet 00 the Medical morning Branch and 2 tablets in the evening. Take with meals. rosuvastati 0 Yes [id number] TAKE 1 [facility] n 20 mg 2-03 TABLET AT ity of tablet 00:00: BEDTIME, [place] 00 STOP Medical TAKING Branch ATORVASTAT IN metformin 0 Yes [id number] 1000mg Take 2 [facility] ER 500 mg 2-03 tablets by ity of 24 hr 00:00: mouth in [place] tablet 00 the Medical morning Branch and 2 tablets in the evening. Take with meals. rosuvastati 0 Yes [id number] TAKE 1 [facility] n 20 mg 2-03 TABLET AT ity of tablet 00:00: BEDTIME, [place] [address] STOP Medical TAKING Branch ATORVASTAT IN metformin Yes [id number] 1000mg Take 2 [facility] ER 500 mg 2-03 tablets by ity of 24 hr 00:00: mouth in [place] tablet 00 the Medical morning Branch and 2 tablets in the evening. Take with meals. rosuvastati Yes [id number] TAKE 1 [facility] n 20 mg 2-03 TABLET AT ity of tablet 00:00: BEDTIME, [place] [address] STOP Medical TAKING Branch ATORVASTAT IN metformin 0 Yes [id number] 1000mg Take 2 [facility] ER 500 mg 2-03 tablets by ity of 24 hr 00:00: mouth in [place] tablet 00 the Medical morning Branch and 2 tablets in the evening. Take with meals. rosuvastati Yes [id number] TAKE 1 [facility] n 20 mg 2-03 TABLET AT ity of tablet 00:00: BEDTIME, [place] [address] STOP Medical TAKING Branch ATORVASTAT IN metformin 0 Yes [id number] 1000mg Take 2 [facility] ER 500 mg 2-03 tablets by ity of 24 hr 00:00: mouth in [place] tablet 00 the Medical morning Branch and 2 tablets in the evening. Take with meals. rosuvastati 0 Yes [id number] TAKE 1 [facility] n 20 mg 2-03 TABLET AT ity of tablet 00:00: BEDTIME, [place] [address] STOP Medical TAKING Branch ATORVASTAT IN metformin 0 Yes [id number] 1000mg Take 2 [facility] ER 500 mg 2-03 tablets by ity of 24 hr 00:00: mouth in [place] tablet 00 the Medical morning Branch and 2 tablets in the evening. Take with meals. rosuvastati Yes [id number] TAKE 1 [facility] n 20 mg 2-03 TABLET AT ity of tablet 00:00: BEDTIME, [place] 00 STOP Medical TAKING Branch ATORVASTAT IN metformin Yes [id number] 1000mg Take 2 [facility] ER 500 mg 2-03 tablets by ity of 24 hr 00:00: mouth in [place] tablet 00 the Medical morning Branch and 2 tablets in the evening. Take with meals. rosuvastati Yes [id number] TAKE 1 [facility] n 20 mg 2-03 TABLET AT ity of tablet 00:00: BEDTIME, [place] 00 STOP Medical TAKING Branch ATORVASTAT IN metformin Yes [id number] 1000mg Take 2 [facility] ER 500 mg 2-03 tablets by ity of 24 hr 00:00: mouth in [place] tablet 00 the Medical morning Branch and 2 tablets in the evening. Take with meals. rosuvastati Yes [id number] TAKE 1 [facility] n 20 mg 2-03 TABLET AT ity of tablet 00:00: BEDTIME, [place] 00 STOP Medical TAKING Branch ATORVASTAT IN metformin Yes [id number] 1000mg Take 2 [facility] ER 500 mg 2-03 tablets by ity of 24 hr 00:00: mouth in [place] tablet 00 the Medical morning Branch and 2 tablets in the evening. Take with meals. rosuvastati Yes [id number] TAKE 1 [facility] n 20 mg 2-03 TABLET AT ity of tablet 00:00: BEDTIME, [place] 00 STOP Medical TAKING Branch ATORVASTAT IN metformin Yes [id number] 1000mg Take 2 [facility] ER 500 mg 2-03 tablets by ity of 24 hr 00:00: mouth in [place] tablet 00 the Medical morning Branch and 2 tablets in the evening. Take with meals. rosuvastati Yes [id number] TAKE 1 [facility] n 20 mg 2-03 TABLET AT ity of tablet 00:00: BEDTIME, [place] 00 STOP Medical TAKING Branch ATORVASTAT IN metformin Yes [id number] 1000mg Take 2 [facility] ER 500 mg 2-03 tablets by ity of 24 hr 00:00: mouth in [place] tablet 00 the Medical morning Branch and 2 tablets in the evening. Take with meals. rosuvastati Yes [id number] TAKE 1 [facility] n 20 mg 2-03 TABLET AT ity of tablet 00:00: BEDTIME, [place] 00 STOP Medical TAKING Branch ATORVASTAT IN metformin 0 Yes [id number] 1000mg Take 2 [facility] 500 mg 2-03 tablets by [facility] of 24 hr 00:00: mouth in [place] tablet 00 the Medical morning Branch and 2 tablets in the evening. Take with meals. rosuvastati 0 Yes [id number] TAKE 1 [facility] n 20 mg 2-03 TABLET AT ity of tablet 00:00: BEDTIME, [place] [address] STOP Medical TAKING Branch ATORVASTAT IN metformin 0 Yes [id number] 1000mg Take 2 [facility] ER 500 mg 2-03 tablets by [facility] of 24 hr 00:00: mouth in [place] tablet 00 the Medical morning Branch and 2 tablets in the evening. Take with meals. rosuvastati 0 Yes [id number] TAKE 1 [facility] n 20 mg 2-03 TABLET AT ity of tablet 00:00: BEDTIME, [place] [address] STOP Medical TAKING Branch ATORVASTAT IN metformin 0 Yes [id number] 1000mg Take 2 [facility] 500 mg 2-03 tablets by [facility] of 24 hr 00:00: mouth in [place] tablet 00 the Medical morning Branch and 2 tablets in the evening. Take with meals. rosuvastati 0 Yes [id number] TAKE 1 [facility] 20 mg 2-03 TABLET AT ity of tablet 00:00: BEDTIME, [place] [address] STOP Medical TAKING Branch ATORVASTAT IN metformin 0 Yes [id number] 1000mg Take 2 [facility] 500 mg 2-03 tablets by it[facility] of 24 hr 00:00: mouth in [place] tablet 00 the Medical morning Branch and 2 tablets in the evening. Take with meals. rosuvastati 2022-0 Yes [id number] TAKE 1 [facility] 20 mg 2-03 TABLET AT ity of tablet 00:00: BEDTIME, [place] [address] STOP Medical TAKING Branch ATORVASTAT IN metformin 0 Yes [id number] 1000mg Take 2 [facility] 500 mg 2-03 tablets by ity of 24 hr 00:00: mouth in [place] tablet 00 the Medical morning Branch and 2 tablets in the evening. Take with meals. rosuvastati 2022-0 Yes [id number] TAKE 1 [facility] n 20 mg 2-03 TABLET AT ity of tablet 00:00: BEDTIME, [place] [address] STOP Medical TAKING Branch ATORVASTAT IN metformin Yes [id number] 1000mg Take 2 [facility] 500 mg 2-03 tablets by [facility]y of 24 hr 00:00: mouth in [place] tablet 00 the Medical morning Branch and 2 tablets in the evening. Take with meals. rosuvastati Yes [id number] TAKE 1 [facility] n 20 mg 2-03 TABLET AT ity of tablet 00:00: BEDTIME, [place] 00 STOP Medical TAKING Branch ATORVASTAT IN metformin Yes [id number] 1000mg Take 2 [facility] ER 500 mg 2-03 tablets by [facility]y of 24 hr 00:00: mouth in [place] tablet 00 the Medical morning Branch and 2 tablets in the evening. Take with meals. rosuvastati Yes [id number] TAKE 1 [facility] n 20 mg 2-03 TABLET AT ity of tablet 00:00: BEDTIME, [place] 00 STOP Medical TAKING Branch ATORVASTAT IN metformin Yes [id number] 1000mg Take 2 [facility] 500 mg 2-03 tablets by [facility]y of 24 hr 00:00: mouth in [place] tablet 00 the Medical morning Branch and 2 tablets in the evening. Take with meals. rosuvastati Yes [id number] TAKE 1 [facility] n 20 mg 2-03 TABLET AT ity of tablet 00:00: BEDTIME, [place] 00 STOP Medical TAKING Branch ATORVASTAT IN metformin Yes [id number] 1000mg Take 2 [facility] 500 mg 2-03 tablets by [facility] of 24 hr 00:00: mouth in [place] tablet 00 the Medical morning Branch and 2 tablets in the evening. Take with meals. rosuvastati Yes [id number] TAKE 1 [facility] n 20 mg 2-03 TABLET AT ity of tablet 00:00: BEDTIME, [place] 00 STOP Medical TAKING Branch ATORVASTAT IN metformin Yes [id number] 1000mg Take 2 [facility] 500 mg 2-03 tablets by [facility]y of 24 hr 00:00: mouth in [place] tablet 00 the Medical morning Branch and 2 tablets in the evening. Take with meals. rosuvastati Yes [id number] TAKE 1 [facility] n 20 mg 2-03 TABLET AT ity of tablet 00:00: BEDTIME, [place] 00 STOP Medical TAKING Branch ATORVASTAT IN metformin Yes [id number] 1000mg Take 2 [facility] 500 mg 2-03 tablets by ity of 24 hr 00:00: mouth in [place] tablet 00 the Medical morning Branch and 2 tablets in the evening. Take with meals. rosuvastati Yes [id number] TAKE 1 [facility] n 20 mg 2-03 TABLET AT ity of tablet 00:00: BEDTIME, [place] 00 STOP Medical TAKING Branch ATORVASTAT IN metformin 0 Yes [id number] 1000mg Take 2 [facility] 500 mg 2-03 tablets by [facility] of 24 hr 00:00: mouth in [place] tablet 00 the Medical morning Branch and 2 tablets in the evening. Take with meals. rosuvastati Yes [id number] TAKE 1 [facility] n 20 mg 2-03 TABLET AT ity of tablet 00:00: BEDTIME, [place] 00 STOP Medical TAKING Branch ATORVASTAT IN metformin 0 Yes [id number] 1000mg Take 2 [facility] 500 mg 2-03 tablets by [facility]y of 24 hr 00:00: mouth in [place] tablet 00 the Medical morning Branch and 2 tablets in the evening. Take with meals. rosuvastati Yes [id number] TAKE 1 [facility] n 20 mg 2-03 TABLET AT ity of tablet 00:00: BEDTIME, [place] 00 STOP Medical TAKING Branch ATORVASTAT IN metformin Yes [id number] 1000mg Take 2 [facility] 500 mg 2-03 tablets by [facility]y of 24 hr 00:00: mouth in [place] tablet 00 the Medical morning Branch and 2 tablets in the evening. Take with meals. rosuvastati Yes [id number] TAKE 1 [facility] n 20 mg 2-03 TABLET AT ity of tablet 00:00: BEDTIME, [place] 00 STOP Medical TAKING Branch ATORVASTAT IN metformin 0 Yes [id number] 1000mg Take 2 [facility] 500 mg 2-03 tablets by [facility]y of 24 hr 00:00: mouth in [place] tablet 00 the Medical morning Branch and 2 tablets in the evening. Take with meals. rosuvastati Yes [id number] TAKE 1 [facility] n 20 mg 2-03 TABLET AT ity of tablet 00:00: BEDTIME, [place] 00 STOP Medical TAKING Branch ATORVASTAT IN metformin 0 Yes [id number] 1000mg Take 2 [facility] 500 mg 2-03 tablets by ity of 24 hr 00:00: mouth in [place] tablet 00 the Medical morning Branch and 2 tablets in the evening. Take with meals. rosuvastati 0 Yes [id number] TAKE 1 [facility] n 20 mg 2-03 TABLET AT ity of tablet 00:00: BEDTIME, [place] 00 STOP Medical TAKING Branch ATORVASTAT IN metformin Yes [id number] 1000mg Take 2 [facility] 500 mg 2-03 tablets by [facility]y of 24 hr 00:00: mouth in [place] tablet 00 the Medical morning Branch and 2 tablets in the evening. Take with meals. rosuvastati 0 Yes [id number] TAKE 1 [facility] n 20 mg 2-03 TABLET AT ity of tablet 00:00: BEDTIME, [place] 00 STOP Medical TAKING Branch ATORVASTAT IN metformin Yes [id number] 1000mg Take 2 [facility] 500 mg 2-03 tablets by [facility] of 24 hr 00:00: mouth in [place] tablet 00 the Medical morning Branch and 2 tablets in the evening. Take with meals. rosuvastati 0 Yes [id number] TAKE 1 [facility] n 20 mg 2-03 TABLET AT ity of tablet 00:00: BEDTIME, [place] 00 STOP Medical TAKING Branch ATORVASTAT IN metformin Yes [id number] 1000mg Take 2 [facility] 500 mg 2-03 tablets by [facility]y of 24 hr 00:00: mouth in [place] tablet 00 the Medical morning Branch and 2 tablets in the evening. Take with meals. rosuvastati Yes [id number] TAKE 1 [facility] n 20 mg 2-03 TABLET AT ity of tablet 00:00: BEDTIME, [place] 00 STOP Medical TAKING Branch ATORVASTAT IN TRUE METRIX Yes Use as [facility] ers AIR GLUCOSE 1-30 directed, ity of METER Kit 00:00: once a day [place] 00 to monitor Medical blood Branch glucose for ICD code E11.9 TRUEPLUS 0 Yes Use as [facility] LANCETS 33 1-30 directed, ity of gauge Misc 00:00: once a day [place] 00 to monitor Medical blood Branch glucose for ICD code E11.9 TRUE METRIX Yes Use as [facility] ers LEVEL 1 1-30 directed, ity of Soln 00:00: once a day [place] 00 to monitor Medical blood Branch glucose for ICD code E11.9 TRUE METRIX 2023-0 Yes Use as [facility] ers AIR GLUCOSE 1-30 directed, ity of METER Kit 00:00: once a day [place] 00 to monitor Medical blood Branch glucose for ICD code E11.9 TRUEPLUS 2023-0 Yes Use as [facility] LANCETS 33 1-30 directed, ity of gauge Misc 00:00: once a day [place] 00 to monitor Medical blood Branch glucose for ICD code E11.9 TRUE METRIX 2023-0 Yes Use as [facility] ers LEVEL 1 1-30 directed, ity of Soln 00:00: once a day [place] 00 to monitor Medical blood Branch glucose for ICD code E11.9 TRUE METRIX 2023-0 Yes Use as [facility] ers AIR GLUCOSE 1-30 directed, ity of METER Kit 00:00: once a day [place] 00 to monitor Medical blood Branch glucose for ICD code E11.9 TRUEPLUS 2023-0 Yes Use as [facility] LANCETS 33 1-30 directed, ity of gauge Misc 00:00: once a day [place] 00 to monitor Medical blood Branch glucose for ICD code E11.9 TRUE METRIX 2023-0 Yes Use as [facility] ers LEVEL 1 1-30 directed, ity of Soln 00:00: once a day [place] 00 to monitor Medical blood Branch glucose for ICD code E11.9 TRUE METRIX 2023-0 Yes Use as [facility] ers AIR GLUCOSE 1-30 directed, ity of METER Kit 00:00: once a day [place] 00 to monitor Medical blood Branch glucose for ICD code E11.9 TRUEPLUS 2023-0 Yes Use as [facility] LANCETS 33 1-30 directed, ity of gauge Misc 00:00: once a day [place] 00 to monitor Medical blood Branch glucose for ICD code E11.9 TRUE METRIX 2023-0 Yes Use as [facility] ers LEVEL 1 1-30 directed, ity of Soln 00:00: once a day [place] 00 to monitor Medical blood Branch glucose for ICD code E11.9 TRUE METRIX 2023-0 Yes Use as [facility] ers AIR GLUCOSE 1-30 directed, ity of METER Kit 00:00: once a day [place] 00 to monitor Medical blood Branch glucose for ICD code E11.9 TRUEPLUS 2023-0 Yes Use as [facility] LANCETS 33 1-30 directed, ity of gauge Misc 00:00: once a day [place] 00 to monitor Medical blood Branch glucose for ICD code E11.9 TRUE METRIX 2023-0 Yes Use as [facility] ers LEVEL 1 1-30 directed, ity of Soln 00:00: once a day [place] 00 to monitor Medical blood Branch glucose for ICD code E11.9 TRUE METRIX 2023-0 Yes Use as [facility] ers AIR GLUCOSE 30 directed, ity of METER Kit 00:00: once a day [place] 00 to monitor Medical blood Branch glucose for ICD code E11.9 TRUEPLUS 2023-0 Yes Use as [facility] LANCETS 33 1-30 directed, ity of gauge Misc 00:00: once a day [place] 00 to monitor Medical blood Branch glucose for ICD code E11.9 TRUE METRIX 2023-0 Yes Use as [facility] ers LEVEL 1 1-30 directed, ity of Soln 00:00: once a day [place] 00 to monitor Medical blood Branch glucose for ICD code E11.9 TRUE METRIX 2023-0 Yes Use as [facility] ers AIR GLUCOSE 30 directed, ity of METER Kit 00:00: once a day [place] 00 to monitor Medical blood Branch glucose for ICD code E11.9 TRUEPLUS 2023-0 Yes Use as [facility] LANCETS 33 -30 directed, ity of gauge Misc 00:00: once a day [place] 00 to monitor Medical blood Branch glucose for ICD code E11.9 TRUE METRIX 2023-0 Yes Use as [facility] ers LEVEL 1 1-30 directed, ity of Soln 00:00: once a day [place] 00 to monitor Medical blood Branch glucose for ICD code E11.9 TRUE METRIX 2023-0 Yes Use as [facility] AIR GLUCOSE 30 directed, ity of METER Kit 00:00: once a day [place] 00 to monitor Medical blood Branch glucose for ICD code E11.9 TRUEPLUS 2023-0 Yes Use as [facility] LANCETS 33 1-30 directed, ity of gauge Misc 00:00: once a day [place] 00 to monitor Medical blood Branch glucose for ICD code E11.9 TRUE METRIX 2023-0 Yes Use as [facility] ers LEVEL 1 1-30 directed, ity of Soln 00:00: once a day [place] 00 to monitor Medical blood Branch glucose for ICD code E11.9 TRUE METRIX 2023-0 Yes Use as [facility] ers LEVEL 1 1-30 directed, ity of Soln 00:00: once a day [place] 00 to monitor Medical blood Branch glucose for ICD code E11.9 TRUE METRIX 2023-0 Yes Use as [facility] ers LEVEL 1 1-30 directed, ity of Soln 00:00: once a day [place] 00 to monitor Medical blood Branch glucose for ICD code E11.9 TRUE METRIX 2023-0 Yes Use as [facility] ers LEVEL 1 1-30 directed, ity of Soln 00:00: once a day [place] 00 to monitor Medical blood Branch glucose for ICD code E11.9 TRUE METRIX 2023-0 Yes Use as [facility] ers LEVEL 1 1-30 directed, ity of Soln 00:00: once a day [place] 00 to monitor Medical blood Branch glucose for ICD code E11.9 TRUE METRIX 2023-0 Yes Use as [facility] ers LEVEL 1 1-30 directed, ity of Soln 00:00: once a day [place] 00 to monitor Medical blood Branch glucose for ICD code E11.9 TRUE METRIX 2023-0 Yes Use as [facility] ers LEVEL 1 1-30 directed, ity of Soln 00:00: once a day [place] 00 to monitor Medical blood Branch glucose for ICD code E11.9 TRUE METRIX 2023-0 Yes Use as [facility] ers LEVEL 1 1-30 directed, ity of Soln 00:00: once a day [place] 00 to monitor Medical blood Branch glucose for ICD code E11.9 TRUE METRIX 2023-0 Yes Use as [facility] ers LEVEL 1 1-30 directed, ity of Soln 00:00: once a day [place] 00 to monitor Medical blood Branch glucose for ICD code E11.9 TRUE METRIX 2023-0 Yes Use as [facility] ers LEVEL 1 1-30 directed, ity of Soln 00:00: once a day [place] 00 to monitor Medical blood Branch glucose for ICD code E11.9 TRUE METRIX 2023-0 Yes Use as [facility] ers LEVEL 1 1-30 directed, ity of Soln 00:00: once a day [place] 00 to monitor Medical blood Branch glucose for ICD code E11.9 TRUE METRIX 2023-0 Yes Use as [facility] ers LEVEL 1 1-30 directed, ity of Soln 00:00: once a day [place] 00 to monitor Medical blood Branch glucose for ICD code E11.9 TRUE METRIX 2023-0 Yes Use as [facility] ers LEVEL 1 1-30 directed, ity of Soln 00:00: once a day [place] 00 to monitor Medical blood Branch glucose for ICD code E11.9 TRUE METRIX 2023-0 Yes Use as [facility] ers LEVEL 1 -30 directed, ity of Soln 00:00: once a day [place] 00 to monitor Medical blood Branch glucose for ICD code E11.9 TRUE METRIX 2023-0 Yes Use as [facility] ers LEVEL 1 30 directed, ity of Soln 00:00: once a day [place] 00 to monitor Medical blood Branch glucose for ICD code E11.9 TRUE METRIX 2023-0 Yes Use as [facility] ers LEVEL 1 30 directed, ity of Soln 00:00: once a day [place] 00 to monitor Medical blood Branch glucose for ICD code E11.9 TRUE METRIX 2023-0 Yes Use as [facility] ers LEVEL 1 30 directed, ity of Soln 00:00: once a day [place] 00 to monitor Medical blood Branch glucose for ICD code E11.9 TRUE METRIX 2023-0 Yes Use as [facility] ers LEVEL 1 30 directed, ity of Soln 00:00: once a day [place] 00 to monitor Medical blood Branch glucose for ICD code E11.9 TRUE METRIX 2023-0 Yes Use as [facility] ers LEVEL 1 30 directed, ity of Soln 00:00: once a day [place] 00 to monitor Medical blood Branch glucose for ICD code E11.9 TRUE METRIX 2023-0 Yes Use as [facility] ers LEVEL 1 30 directed, ity of Soln 00:00: once a day [place] 00 to monitor Medical blood Branch glucose for ICD code E11.9 TRUE METRIX 2023-0 Yes Use as [facility] ers LEVEL 1 30 directed, ity of Soln 00:00: once a day [place] 00 to monitor Medical blood Branch glucose for ICD code E11.9 TRUE METRIX 2023-0 Yes Use as [facility] ers LEVEL 1 -30 directed, ity of Soln 00:00: once a day [place] 00 to monitor Medical blood Branch glucose for ICD code E11.9 TRUE METRIX 2023-0 Yes Use as [facility] ers LEVEL 1 30 directed, ity of Soln 00:00: once a day [place] 00 to monitor Medical blood Branch glucose for ICD code E11.9 TRUE METRIX 2023-0 Yes Use as [facility] ers LEVEL 1 1-30 directed, ity of Soln 00:00: once a day [place] 00 to monitor Medical blood Branch glucose for ICD code E11.9 TRUE METRIX 2023-0 Yes Use as [facility] ers LEVEL 1 1-30 directed, ity of Soln 00:00: once a day [place] 00 to monitor Medical blood Branch glucose for ICD code E11.9 TRUE METRIX 2023-0 Yes Use as [facility] ers LEVEL 1 1-30 directed, ity of Soln 00:00: once a day [place] 00 to monitor Medical blood Branch glucose for ICD code E11.9 TRUE METRIX 2023-0 Yes Use as [facility] ers LEVEL 1 1-30 directed, ity of Soln 00:00: once a day [place] 00 to monitor Medical blood Branch glucose for ICD code E11.9 TRUE METRIX 2023-0 Yes Use as [facility] ers LEVEL 1 1-30 directed, ity of Soln 00:00: once a day [place] 00 to monitor Medical blood Branch glucose for ICD code E11.9 TRUE METRIX 2023-0 Yes Use as [facility] ers LEVEL 1 1-30 directed, ity of Soln 00:00: once a day [place] 00 to monitor Medical blood Branch glucose for ICD code E11.9 TRUE METRIX 2023-0 Yes Use as [facility] ers LEVEL 1 1-30 directed, ity of Soln 00:00: once a day [place] 00 to monitor Medical blood Branch glucose for ICD code E11.9 TRUE METRIX 2023-0 Yes Use as [facility] ers LEVEL 1 1-30 directed, ity of Soln 00:00: once a day [place] 00 to monitor Medical blood Branch glucose for ICD code E11.9 TRUE METRIX 2023-0 Yes Use as [facility] ers LEVEL 1 1-30 directed, ity of Soln 00:00: once a day [place] 00 to monitor Medical blood Branch glucose for ICD code E11.9 TRUE METRIX 2023-0 Yes Use as [facility] ers LEVEL 1 1-30 directed, ity of Soln 00:00: once a day [place] 00 to monitor Medical blood Branch glucose for ICD code E11.9 TRUE METRIX 2023-0 Yes Use as [facility] ers LEVEL 1 1-30 directed, ity of Soln 00:00: once a day [place] 00 to monitor Medical blood Branch glucose for ICD code E11.9 TRUE METRIX 2023-0 Yes Use as [facility] ers LEVEL 1 -30 directed, ity of Soln 00:00: once a day [place] 00 to monitor Medical blood Branch glucose for ICD code E11.9 TRUE METRIX 2022-0 Yes Use as [facility] ers LEVEL 1 -30 directed, ity of Soln 00:00: once a day [place] 00 to monitor Medical blood Branch glucose for ICD code E11.9 TRUE METRIX 2022-0 202- No Use as [facility] vers AIR GLUCOSE 05-13 directed, it y of METER Kit 00:00: 00:00 once a day [place] 00 :00 to monitor Medical blood Branch glucose for ICD code E11.9 TRUEPLUS 2022-0 2022- No Use as [facility] LANCETS 33 05-13 directed, ity of gauge Misc 00:00: 00:00 once a day [place] 00 :00 to monitor Medical blood Branch glucose for ICD code E11.9 Alcohol 2021-04 Yes [id number] Use as [facility] ers Swabs (BD 2-21 directed ity of SINGLE USE 00:00: [place] prep [place] SWABS 00 the skin Medical REGULAR) prior to Branch PadM Trulicity injection or glucose check; ICD-10 E11.65 blood sugar 2021-04 Yes Use as [facility] ers diagnostic 2-21 directed, ity of (TRUE 00:00: once a day [place] METRIX 00 to monitor Medical GLUCOSE blood Branch TEST STRIP) glucose strip for ICD code E11.9 Alcohol 2021-04 Yes [id number] Use as [facility] ers Swabs (BD 2-21 directed ity of SINGLE USE 00:00: to prep [place] SWAB[place] 00 the skin Medical REGULAR) prior to Branch PadM Trulicity injection or glucose check; ICD-10 E11.65 blood sugar 2021-04 Yes Use as [facility] ers diagnostic 2-21 directed, ity of (TRUE 00:00: once a day [place] METRIX 00 to monitor Medical GLUCOSE blood Branch TEST STRIP) glucose strip for ICD code E11.9 Alcohol 2021-04 Yes [id number] Use as [facility] ers Swabs (BD 2-21 directed ity of SINGLE USE 00:00: to prep [place] SW[place] 00 the skin Medical REGULAR) prior to Branch PadM Trulicity injection or glucose check; ICD-10 E11.65 blood sugar 2021-04 Yes Use as [facility] ers diagnostic 2-21 directed, ity of (TRUE 00:00: once a day [place] METRIX 00 to monitor Medical GLUCOSE blood Branch TEST STRIP) glucose strip for ICD code E11.9 Alcohol 2021-04 Yes [id number] Use as [facility] ers Swabs (BD 2-21 directed ity of SINGLE USE 00:00: to prep [place] SWAB[place] 00 the skin Medical REGULAR) prior to Branch PadM Trulicity injection or glucose check; ICD-10 E11.65 blood sugar 2021-04 Yes Use as [facility] ers diagnostic 2-21 directed, ity of (TRUE 00:00: once a day [place] METRIX 00 to monitor Medical GLUCOSE blood Branch TEST STRIP) glucose strip for ICD code E11.9 Alcohol 2021-04 Yes [id number] Use as [facility] ers Swabs (BD 2-21 directed ity of SINGLE USE 00:00: to prep [place] SW[place] 00 the skin Medical REGULAR) prior to Branch PadM Trulicity injection or glucose check; ICD-10 E11.65 blood sugar 2021-04 Yes Use as [facility] ers diagnostic 2-21 directed, ity of (TRUE 00:00: once a day [place] METRIX 00 to monitor Medical GLUCOSE blood Branch TEST STRIP) glucose strip for ICD code E11.9 Alcohol 2021-04 Yes [id number] Use as [facility] ers Swabs (BD 2-21 directed ity of SINGLE USE 00:00: to prep [place] SWAB[place] 00 the skin Medical REGULAR) prior to Branch PadM Trulicity injection or glucose check; ICD-10 E11.65 blood sugar 2021-04 Yes Use as [facility] ers diagnostic 2-21 directed, ity of (TRUE 00:00: once a day [place] METRIX 00 to monitor Medical GLUCOSE blood Branch TEST STRIP) glucose strip for ICD code E11.9 Alcohol 2021-04 Yes [id number] Use as [facility] ers Swabs (BD 2-21 directed ity of SINGLE USE 00:00: to prep [place] SWAB[place] 00 the skin Medical REGULAR) prior to Branch PadM Trulicity injection or glucose check; ICD-10 E11.65 blood sugar 2021-04 Yes Use as [facility] ers diagnostic 2-21 directed, ity of (TRUE 00:00: once a day [place] METRIX 00 to monitor Medical GLUCOSE blood Branch TEST STRIP) glucose strip for ICD code E11.9 Alcohol 2021-04 Yes [id number] Use as [facility] ers Swabs (BD 2-21 directed ity of SINGLE USE 00:00: to prep [place] SW[place] 00 the skin Medical REGULAR) prior to Branch PadM Trulicity injection or glucose check; ICD-10 E11.65 blood sugar 2021-04 Yes Use as [facility] ers diagnostic 2-21 directed, ity of (TRUE 00:00: once a day [place] METRIX 00 to monitor Medical GLUCOSE blood Branch TEST STRIP) glucose strip for ICD code E11.9 Alcohol 2021-04 Yes [id number] Use as [facility] ers Swabs (BD 2-21 directed ity of SINGLE USE 00:00: to prep [place] SW[place] 00 the skin Medical REGULAR) prior to Branch PadM Trulicity injection or glucose check; ICD-10 E11.65 blood sugar 2021-04 Yes Use as [facility] ers diagnostic 2-21 directed, ity of (TRUE 00:00: once a day [place] METRIX 00 to monitor Medical GLUCOSE blood Branch TEST STRIP) glucose strip for ICD code E11.9 Alcohol 2021-04 Yes [id number] Use as [facility] ers Swabs (BD 2-21 directed ity of SINGLE USE 00:00: to prep [place] SW[place] 00 the skin Medical REGULAR) prior to Branch PadM Trulicity injection or glucose check; ICD-10 E11.65 blood sugar 2021-04 Yes Use as [facility] ers diagnostic 2-21 directed, ity of (TRUE 00:00: once a day [place] METRIX 00 to monitor Medical GLUCOSE blood Branch TEST STRIP) glucose strip for ICD code E11.9 Alcohol 2021-04 Yes [id number] Use as [facility] ers Swabs (BD 2-21 directed ity of SINGLE USE 00:00: to prep [place] SWAB[place] 00 the skin Medical REGULAR) prior to Branch PadM Trulicity injection or glucose check; ICD-10 E11.65 blood sugar 2021-04 Yes Use as [facility] ers diagnostic 2-21 directed, ity of (TRUE 00:00: once a day [place] METRIX 00 to monitor Medical GLUCOSE blood Branch TEST STRIP) glucose strip for ICD code E11.9 Alcohol 2021-04 Yes [id number] Use as [facility] ers Swabs (BD 2-21 directed ity of SINGLE USE 00:00: to prep [place] SW[place] 00 the skin Medical REGULAR) prior to Branch PadM Trulicity injection or glucose check; ICD-10 E11.65 blood sugar 2021-04 Yes Use as [facility] ers diagnostic 2-21 directed, ity of (TRUE 00:00: once a day [place] METRIX 00 to monitor Medical GLUCOSE blood Branch TEST STRIP) glucose strip for ICD code E11.9 Alcohol 2021-04 Yes [id number] Use as [facility] ers Swabs (BD 2-21 directed ity of SINGLE USE 00:00: to prep [place] SW[place] 00 the skin Medical REGULAR) prior to Branch PadM Trulicity injection or glucose check; ICD-10 E11.65 blood sugar 2021-04 Yes Use as [facility] ers diagnostic 2-21 directed, ity of (TRUE 00:00: once a day [place] METRIX 00 to monitor Medical GLUCOSE blood Branch TEST STRIP) glucose strip for ICD code E11.9 Alcohol 2021-04 Yes [id number] Use as [facility] ers Swabs (BD 2-21 directed ity of SINGLE USE 00:00: to prep [place] SWAB[place] 00 the skin Medical REGULAR) prior to Branch PadM Trulicity injection or glucose check; ICD-10 E11.65 blood sugar 2021-04 Yes Use as [facility] ers diagnostic 2-21 directed, ity of (TRUE 00:00: once a day [place] METRIX 00 to monitor Medical GLUCOSE blood Branch TEST STRIP) glucose strip for ICD code E11.9 Alcohol 2021-04 Yes [id number] Use as [facility] ers Swabs (BD 2-21 directed ity of SINGLE USE 00:00: to prep [place] SW[place] 00 the skin Medical REGULAR) prior to Branch PadM Trulicity injection or glucose check; ICD-10 E11.65 blood sugar 2021-04 Yes Use as [facility] ers diagnostic 2-21 directed, ity of (TRUE 00:00: once a day [place] METRIX 00 to monitor Medical GLUCOSE blood Branch TEST STRIP) glucose strip for ICD code E11.9 Alcohol 2021-04 Yes [id number] Use as [facility] ers Swabs (BD 2-21 directed ity of SINGLE USE 00:00: to prep [place] SW[place] 00 the skin Medical REGULAR) prior to Branch PadM Trulicity injection or glucose check; ICD-10 E11.65 blood sugar 2021-04 Yes Use as [facility] ers diagnostic 2-21 directed, ity of (TRUE 00:00: once a day [place] METRIX 00 to monitor Medical GLUCOSE blood Branch TEST STRIP) glucose strip for ICD code E11.9 Alcohol 2021-04 Yes [id number] Use as [facility] ers Swabs (BD 2-21 directed ity of SINGLE USE 00:00: to prep [place] SWAB[place] 00 the skin Medical REGULAR) prior to Branch PadM Trulicity injection or glucose check; ICD-10 E11.65 blood sugar 2021-04 Yes Use as [facility] ers diagnostic 2-21 directed, ity of (TRUE 00:00: once a day [place] METRIX 00 to monitor Medical GLUCOSE blood Branch TEST STRIP) glucose strip for ICD code E11.9 Alcohol 2021-04 Yes [id number] Use as [facility] ers Swabs (BD 2-21 directed ity of SINGLE USE 00:00: to prep [place] SW[place] 00 the skin Medical REGULAR) prior to Branch PadM Trulicity injection or glucose check; ICD-10 E11.65 blood sugar 2021-04 Yes Use as [facility] ers diagnostic 2-21 directed, ity of (TRUE 00:00: once a day [place] METRIX 00 to monitor Medical GLUCOSE blood Branch TEST STRIP) glucose strip for ICD code E11.9 Alcohol 2021-04 Yes [id number] Use as [facility] ers Swabs (BD 2-21 directed ity of SINGLE USE 00:00: to prep [place] SWABS 00 the skin Medical REGULAR) prior to Branch PadM Trulicity injection or glucose check; ICD-10 E11.65 blood sugar 2021-04 Yes [facility] diagnostic 2-21 directed, ity of (TRUE 00:00: once a day [place] [facility] 00 to monitor Medical GLUCOSE blood Branch TEST STRIP) glucose strip for ICD code E11.9 Alcohol 2021-04 Yes [id number] Use as [facility] Swabs (BD 2-21 directed it[facility] of SINGLE USE 00:00: [place] [facility] [place] the skin Medical REGULAR) prior to Branch PadM Trulicity injection or glucose check; ICD-10 E11.65 blood sugar 2021-04 Yes Use as [facility] diagnostic 2-21 directed, ity of (TRUE 00:00: once a day [place] [facility] 00 to monitor Medical GLUCOSE blood Branch TEST STRIP) glucose strip for ICD code E11.9 Alcohol 2021-04 Yes [id number] Use as [facility] Swabs (BD 2-21 directed ity of SINGLE USE 00:00: to prep [place] [facility] 00 the skin Medical REGULAR) prior to Branch PadM Trulicity injection or glucose check; ICD-10 E11.65 blood sugar 2021-04 Yes Use [facility] diagnostic 2-21 directed, ity of (TRUE 00:00: once a day [place] [facility] 00 to monitor Medical GLUCOSE blood Branch TEST STRIP) glucose strip for ICD code E11.9 Alcohol 2021-04 Yes [id number] Use as [facility] Swabs (BD 2-21 directed ity of SINGLE USE 00:00: to prep [place] [facility] 00 the skin Medical REGULAR) prior to Branch PadM Trulicity injection or glucose check; ICD-10 E11.65 blood sugar 2021-04 Yes Use as [facility] diagnostic 2-21 directed, ity of (TRUE 00:00: once a day [place] [facility] 00 to monitor Medical GLUCOSE blood Branch TEST STRIP) glucose strip for ICD code E11.9 Alcohol 2021-04 Yes [id number] Use as [facility] Swabs (BD 2-21 directed ity of SINGLE USE 00:00: to prep [place] [facility] 00 the skin Medical REGULAR) prior to Branch PadM Trulicity injection or glucose check; ICD-10 E11.65 blood sugar 2021-04 Yes Use as [facility] diagnostic 2-21 directed, ity of (TRUE 00:00: once a day [place] [facility] 00 to monitor Medical GLUCOSE blood Branch TEST STRIP) glucose strip for ICD code E11.9 Alcohol 2021-04 Yes [id number] Use as [facility] Swabs (BD 2-21 directed it[facility] of SINGLE USE 00:00: to prep [place] [facility] 00 the skin Medical REGULAR) prior to Branch PadM Trulicity injection or glucose check; ICD-10 E11.65 blood sugar 2021-04 Yes Use as [facility] diagnostic 2-21 directed, ity of (TRUE 00:00: once a day [place] [facility] 00 to monitor Medical GLUCOSE blood Branch TEST STRIP) glucose strip for ICD code E11.9 Alcohol 2021-04 Yes [id number] Use as [facility] Swabs (BD 2-21 directed ity of SINGLE USE 00:00: to prep [place] [facility] 00 the skin Medical REGULAR) prior to Branch PadM Trulicity injection or glucose check; ICD-10 E11.65 blood sugar 2021-04 Yes Use as [facility] diagnostic 2-21 directed, ity of (TRUE 00:00: once a day [place] [facility] 00 to monitor Medical GLUCOSE blood Branch TEST STRIP) glucose strip for ICD code E11.9 Alcohol 2021-04 Yes [id number] Use as [facility] Swabs (BD 2-21 directed ity of SINGLE USE 00:00: to prep [place] [facility] 00 the skin Medical REGULAR) prior to Branch PadM Trulicity injection or glucose check; ICD-10 E11.65 blood sugar 2021-04 Yes Use as [facility] diagnostic 2-21 directed, ity of (TRUE 00:00: once a day [place] [facility] 00 to monitor Medical GLUCOSE blood Branch TEST STRIP) glucose strip for ICD code E11.9 Alcohol 2021-04 Yes [id number] Use as [facility] Swabs (BD 2-21 directed ity of SINGLE USE 00:00: to prep [place] [facility] 00 the skin Medical REGULAR) prior to Branch PadM Trulicity injection or glucose check; ICD-10 E11.65 blood sugar 2021-04 Yes Use as [facility] diagnostic 2-21 directed, ity of (TRUE 00:00: once a day [place] [facility] 00 to monitor Medical GLUCOSE blood Branch TEST STRIP) glucose strip for ICD code E11.9 Alcohol 2021-04 Yes [id number] Use as [facility] Swabs (BD 2-21 directed ity of SINGLE USE 00:00: to prep [place] SW[facility] 00 the skin Medical REGULAR) prior to Branch PadM Trulicity injection or glucose check; ICD-10 E11.65 blood sugar 2021-04 Yes Use as [facility] diagnostic 2-21 directed, ity of (TRUE 00:00: once a day [place] [facility] 00 to monitor Medical GLUCOSE blood Branch TEST STRIP) glucose strip for ICD code E11.9 Alcohol 2021-04 Yes [id number] Use as [facility] Swabs (BD 2-21 directed ity of SINGLE USE 00:00: to prep [place] SW[facility] 00 the skin Medical REGULAR) prior to Branch PadM Trulicity injection or glucose check; ICD-10 E11.65 blood sugar 2021-04 Yes Use as [facility] diagnostic 2-21 directed, ity of (TRUE 00:00: once a day [place] [facility] 00 to monitor Medical GLUCOSE blood Branch TEST STRIP) glucose strip for ICD code E11.9 Alcohol 2021-04 Yes [id number] Use as [facility] Swabs (BD 2-21 directed ity of SINGLE USE 00:00: to prep [place] SW[facility] 00 the skin Medical REGULAR) prior to Branch PadM Trulicity injection or glucose check; ICD-10 E11.65 blood sugar 2021-04 Yes Use as [facility] diagnostic 2-21 directed, ity of (TRUE 00:00: once a day [place] [facility] 00 to monitor Medical GLUCOSE blood Branch TEST STRIP) glucose strip for ICD code E11.9 Alcohol 2021-04 Yes [id number] Use as [facility] Swabs (BD 2-21 directed ity of SINGLE USE 00:00: to prep [place] [facility] 00 the skin Medical REGULAR) prior to Branch PadM Trulicity injection or glucose check; ICD-10 E11.65 blood sugar 2021-04 Yes Use as [facility] diagnostic 2-21 directed, ity of (TRUE 00:00: once a day [place] [facility] 00 to monitor Medical GLUCOSE blood Branch TEST STRIP) glucose strip for ICD code E11.9 Alcohol 2021-04 Yes [id number] Use as [facility] Swabs (BD 2-21 directed ity of SINGLE USE 00:00: to prep [place] SW[facility] 00 the skin Medical REGULAR) prior to Branch PadM Trulicity injection or glucose check; ICD-10 E11.65 blood sugar 2021-04 Yes Use as [facility] diagnostic 2-21 directed, ity of (TRUE 00:00: once a day [place] [facility] 00 to monitor Medical GLUCOSE blood Branch TEST STRIP) glucose strip for ICD code E11.9 Alcohol 2021-04 Yes [id number] Use as [facility] Swabs (BD 2-21 directed ity of SINGLE USE 00:00: to prep [place] [facility] 00 the skin Medical REGULAR) prior to Branch PadM Trulicity injection or glucose check; ICD-10 E11.65 blood sugar 2021-04 Yes Use as [facility] diagnostic 2-21 directed, ity of (TRUE 00:00: once a day [place] [facility] 00 to monitor Medical GLUCOSE blood Branch TEST STRIP) glucose strip for ICD code E11.9 Alcohol 2021-04 Yes [id number] Use as [facility] Swabs (BD 2-21 directed ity of SINGLE USE 00:00: to prep [place] [facility] 00 the skin Medical REGULAR) prior to Branch PadM Trulicity injection or glucose check; ICD-10 E11.65 blood sugar 2021-04 Yes Use as [facility] diagnostic 2-21 directed, ity of (TRUE 00:00: once a day [place] [facility] 00 to monitor Medical GLUCOSE blood Branch TEST STRIP) glucose strip for ICD code E11.9 Alcohol 2021-04 Yes [id number] Use as [facility] Swabs (BD 2-21 directed ity of SINGLE USE 00:00: to prep [place] [facility] 00 the skin Medical REGULAR) prior to Branch PadM Trulicity injection or glucose check; ICD-10 E11.65 blood sugar 2021-04 Yes Use as [facility] diagnostic 2-21 directed, ity of (TRUE 00:00: once a day [place] [facility] 00 to monitor Medical GLUCOSE blood Branch TEST STRIP) glucose strip for ICD code E11.9 Alcohol 2021-04 Yes [id number] Use as [facility] Swabs (BD 2-21 directed ity of SINGLE USE 00:00: to prep [place] [facility] 00 the skin Medical REGULAR) prior to Branch PadM Trulicity injection or glucose check; ICD-10 E11.65 blood sugar 2021-04 Yes Use as [facility] diagnostic 2-21 directed, ity of (TRUE 00:00: once a day [place] [facility] 00 to monitor Medical GLUCOSE blood Branch TEST STRIP) glucose strip for ICD code E11.9 Alcohol 2021-04 Yes [id number] Use as [facility] Swabs (BD 2-21 directed ity of SINGLE USE 00:00: to prep [place] [facility] 00 the skin Medical REGULAR) prior to Branch PadM Trulicity injection or glucose check; ICD-10 E11.65 blood sugar 2021-04 Yes Use as [facility] diagnostic 2-21 directed, ity of (TRUE 00:00: once a day [place] [facility] 00 to monitor Medical GLUCOSE blood Branch TEST STRIP) glucose strip for ICD code E11.9 Alcohol 2021-04 Yes [id number] Use as [facility] Swabs (BD 2-21 directed ity of SINGLE USE 00:00: to prep [place] [facility] 00 the skin Medical REGULAR) prior to Branch PadM Trulicity injection or glucose check; ICD-10 E11.65 blood sugar 2021-04 Yes Use as [facility] diagnostic 2-21 directed, ity of (TRUE 00:00: once a day [place] [facility] 00 to monitor Medical GLUCOSE blood Branch TEST STRIP) glucose strip for ICD code E11.9 Alcohol 2021-04 Yes [id number] Use as [facility] Swabs (BD 2-21 directed ity of SINGLE USE 00:00: to prep [place] [facility] 00 the skin Medical REGULAR) prior to Branch PadM Trulicity injection or glucose check; ICD-10 E11.65 blood sugar 2021-04 Yes Use as [facility] diagnostic 2-21 directed, ity of (TRUE 00:00: once a day [place] [facility] 00 to monitor Medical GLUCOSE blood Branch TEST STRIP) glucose strip for ICD code E11.9 Alcohol 2021-04 Yes [id number] Use as [facility] Swabs (BD 2-21 directed ity of SINGLE USE 00:00: to prep [place] [facility] 00 the skin Medical REGULAR) prior to Branch PadM Trulicity injection or glucose check; ICD-10 E11.65 blood sugar 2021-04 Yes Use as [facility] diagnostic 2-21 directed, ity of (TRUE 00:00: once a day [place] [facility] 00 to monitor Medical GLUCOSE blood Branch TEST STRIP) glucose strip for ICD code E11.9 Alcohol 2021-04 Yes [id number] Use as [facility] Swabs (BD 2-21 directed ity of SINGLE USE 00:00: to prep [place] [facility] 00 the skin Medical REGULAR) prior to Branch PadM Trulicity injection or glucose check; ICD-10 E11.65 blood sugar 2021-04 Yes Use as [facility] diagnostic 2-21 directed, ity of (TRUE 00:00: once a day [place] [facility] 00 to monitor Medical GLUCOSE blood Branch TEST STRIP) glucose strip for ICD code E11.9 Alcohol 2021-04 Yes [id number] Use as [facility] Swabs (BD 2-21 directed ity of SINGLE USE 00:00: to prep [place] SW[facility] 00 the skin Medical REGULAR) prior to Branch PadM Trulicity injection or glucose check; ICD-10 E11.65 blood sugar 2021-04 Yes Use as [facility] diagnostic 2-21 directed, ity of (TRUE 00:00: once a day [place] [facility] 00 to monitor Medical GLUCOSE blood Branch TEST STRIP) glucose strip for ICD code E11.9 Alcohol 2021-04 Yes [id number] Use as [facility] Swabs (BD 2-21 directed ity of SINGLE USE 00:00: to prep [place] SW[facility] 00 the skin Medical REGULAR) prior to Branch PadM Trulicity injection or glucose check; ICD-10 E11.65 blood sugar 2021-04 Yes Use as [facility] diagnostic 2-21 directed, ity of (TRUE 00:00: once a day [place] [facility] 00 to monitor Medical GLUCOSE blood Branch TEST STRIP) glucose strip for ICD code E11.9 Alcohol 2021-04 Yes [id number] Use as [facility] Swabs (BD 2-21 directed ity of SINGLE USE 00:00: to prep [place] SWAB[facility] 00 the skin Medical REGULAR) prior to Branch PadM Trulicity injection or glucose check; ICD-10 E11.65 blood sugar 2021-04 Yes Use as [facility] diagnostic 2-21 directed, ity of (TRUE 00:00: once a day [place] [facility] 00 to monitor Medical GLUCOSE blood Branch TEST STRIP) glucose strip for ICD code E11.9 Alcohol 2021-04 Yes [id number] Use as [facility] Swabs (BD 2-21 directed ity of SINGLE USE 00:00: to prep [place] SWAB[facility] 00 the skin Medical REGULAR) prior to Branch PadM Trulicity injection or glucose check; ICD-10 E11.65 blood sugar 2021-04 Yes Use as [facility] diagnostic 2-21 directed, ity of (TRUE 00:00: once a day [place] [facility] 00 to monitor Medical GLUCOSE blood Branch TEST STRIP) glucose strip for ICD code E11.9 Alcohol 2021-04 Yes [id number] Use as [facility] Swabs (BD 2-21 directed ity of SINGLE USE 00:00: to prep [place] SWAB[facility] 00 the skin Medical REGULAR) prior to Branch PadM Trulicity injection or glucose check; ICD-10 E11.65 blood sugar 2021-04 Yes Use as [facility] diagnostic 2-21 directed, ity of (TRUE 00:00: once a day [place] [facility] 00 to monitor Medical GLUCOSE blood Branch TEST STRIP) glucose strip for ICD code E11.9 Alcohol 2021-04 Yes [id number] Use as [facility] Swabs (BD 2-21 directed ity of SINGLE USE 00:00: to prep [place] SWAB[facility] 00 the skin Medical REGULAR) prior to Branch PadM Trulicity injection or glucose check; ICD-10 E11.65 blood sugar 2021-04 Yes Use as [facility] diagnostic 2-21 directed, ity of (TRUE 00:00: once a day [place] [facility] 00 to monitor Medical GLUCOSE blood Branch TEST STRIP) glucose strip for ICD code E11.9 Alcohol 2021-04 Yes [id number] Use as [facility] Swabs (BD 2-21 directed ity of SINGLE USE 00:00: to prep [place] SW[facility] 00 the skin Medical REGULAR) prior to Branch PadM Trulicity injection or glucose check; ICD-10 E11.65 blood sugar 2021-04 Yes Use as [facility] diagnostic 2-21 directed, ity of (TRUE 00:00: once a day [place] [facility] 00 to monitor Medical GLUCOSE blood Branch TEST STRIP) glucose strip for ICD code E11.9 Alcohol 2021-04 Yes [id number] Use as [facility] Swabs (BD 2-21 directed ity of SINGLE USE 00:00: to prep [place] SW[facility] 00 the skin Medical REGULAR) prior to Branch PadM Trulicity injection or glucose check; ICD-10 E11.65 blood sugar 2021-04 Yes Use as [facility] diagnostic 2-21 directed, ity of (TRUE 00:00: once a day [place] [facility] 00 to monitor Medical GLUCOSE blood Branch TEST STRIP) glucose strip for ICD code E11.9 Alcohol 2021-04 Yes [id number] Use as [facility] Swabs (BD 2-21 directed ity of SINGLE USE 00:00: to prep [place] SW[facility] 00 the skin Medical REGULAR) prior to Branch PadM Trulicity injection or glucose check; ICD-10 E11.65 blood sugar 2021-04 Yes Use as [facility] diagnostic 2-21 directed, ity of (TRUE 00:00: once a day [place] [facility] 00 to monitor Medical GLUCOSE blood Branch TEST STRIP) glucose strip for ICD code E11.9 tiZANidine 2021-04 Yes [id number] 2mg Take 1 [facility] 2 mg tablet 2-16 tablet by ity of 00:00: mouth [place] 00 every 6 Medical (six) Branch hours as needed for Pain (scale 4-6). albuterol 2021-04 Yes [id number] 2 puffs [facility] 90 2-16 with ity of mcg/actuati 00:00: spacer 4 [place] on inhaler 00 times a Medica l day for at Branch least 7 days tiZANidine 2021-04 Yes [id number] 2mg Take 1 [facility] 2 mg tablet 2-16 tablet by ity of 00:00: mouth [place] 00 every 6 Medical (six) Branch hours as needed for Pain (scale 4-6). albuterol 2021-04 Yes [id number] 2 puffs [facility] 90 2-16 with ity of mcg/actuati 00:00: spacer 4 [place] on inhaler 00 times a Medica l day for at Branch least 7 days tiZANidine 2021-04 Yes [id number] 2mg Take 1 [facility] 2 mg tablet 2-16 tablet by ity of 00:00: mouth [place] 00 every 6 Medical (six) Branch hours as needed for Pain (scale 4-6). albuterol 2021-04 Yes [id number] 2 puffs [facility] 90 2-16 with ity of mcg/actuati 00:00: spacer 4 [place] on inhaler 00 times a Medica l day for at Branch least 7 days tiZANidine 2021-04 Yes [id number] 2mg Take 1 [facility] 2 mg tablet 2-16 tablet by ity of 00:00: mouth [place] 00 every 6 Medical (six) Branch hours as needed for Pain (scale 4-6). albuterol 2021-04 Yes [id number] 2 puffs [facility] 90 2-16 with ity of mcg/actuati 00:00: spacer 4 [place] on inhaler 00 times a Medica l day for at Branch least 7 days tiZANidine 2021-04 Yes [id number] 2mg Take 1 [facility] 2 mg tablet 2-16 tablet by ity of 00:00: mouth [place] 00 every 6 Medical (six) Branch hours as needed for Pain (scale 4-6). albuterol 2021-04 Yes [id number] 2 puffs [facility] 90 2-16 with ity of mcg/actuati 00:00: spacer 4 [place] on inhaler 00 times a Medica l day for at Branch least 7 days tiZANidine 2021-04 Yes [id number] 2mg Take 1 [facility] 2 mg tablet 2-16 tablet by ity of 00:00: mouth [place] 00 every 6 Medical (six) Branch hours as needed for Pain (scale 4-6). albuterol 2021-04 Yes [id number] 2 puffs [facility] n[facility] 90 2-16 with ity of mcg/actuati 00:00: spacer 4 [place] on inhaler 00 times a Medica l day for at Branch least 7 days tiZANidine 2021-04 Yes [id number] 2mg Take 1 [facility] 2 mg tablet 2-16 tablet by ity of 00:00: mouth [place] 00 every 6 Medical (six) Branch hours as needed for Pain (scale 4-6). albuterol 2021-04 Yes [id number] 2 puffs [facility] 90 2-16 with ity of mcg/actuati 00:00: spacer 4 [place] on inhaler 00 times a Medica l day for at Branch least 7 days tiZANidine 2021-04 Yes [id number] 2mg Take 1 [facility] 2 mg tablet 2-16 tablet by ity of 00:00: mouth [place] 00 every 6 Medical (six) Branch hours as needed for Pain (scale 4-6). albuterol 2021-04 Yes [id number] 2 puffs [facility] n[facility] 90 2-16 with ity of mcg/actuati 00:00: spacer 4 [place] on inhaler 00 times a Medica l day for at Branch least 7 days tiZANidine 2021-04 Yes [id number] 2mg Take 1 [facility] 2 mg tablet 2-16 tablet by ity of 00:00: mouth [place] 00 every 6 Medical (six) Branch hours as needed for Pain (scale 4-6). albuterol 2021-04 Yes [id number] 2 puffs [facility] n[facility] 90 2-16 with ity of mcg/actuati 00:00: spacer 4 [place] on inhaler 00 times a Medica l day for at Branch least 7 days tiZANidine 2021-04 Yes [id number] 2mg Take 1 [facility] 2 mg tablet 2-16 tablet by ity of 00:00: mouth [place] 00 every 6 Medical (six) Branch hours as needed for Pain (scale 4-6). albuterol 2021-04 Yes [id number] 2 puffs [facility] 90 2-16 with ity of mcg/actuati 00:00: spacer 4 [place] on inhaler 00 times a Medica l day for at Branch least 7 days tiZANidine 2021-04 Yes [id number] 2mg Take 1 [facility] 2 mg tablet 2-16 tablet by ity of 00:00: mouth [place] 00 every 6 Medical (six) Branch hours as needed for Pain (scale 4-6). albuterol 2021-04 Yes [id number] 2 puffs [facility] n[facility] 90 2-16 with ity of mcg/actuati 00:00: spacer 4 [place] on inhaler 00 times a Medica l day for at Branch least 7 days tiZANidine 2021-04 Yes [id number] 2mg Take 1 [facility] 2 mg tablet 2-16 tablet by ity of 00:00: mouth [place] 00 every 6 Medical (six) Branch hours as needed for Pain (scale 4-6). albuterol 2021-04 Yes [id number] 2 puffs [facility] n[facility] 90 2-16 with ity of mcg/actuati 00:00: spacer 4 [place] on inhaler 00 times a Medica l day for at Branch least 7 days tiZANidine 2021-04 Yes [id number] 2mg Take 1 [facility] 2 mg tablet 2-16 tablet by ity of 00:00: mouth [place] 00 every 6 Medical (six) Branch hours as needed for Pain (scale 4-6). albuterol 2021-04 Yes [id number] 2 puffs [facility] nivers 90 2-16 with ity of mcg/actuati 00:00: spacer 4 [place] on inhaler 00 times a Medica l day for at Branch least 7 days tiZANidine 2021-04 Yes [id number] 2mg Take 1 [facility] 2 mg tablet 2-16 tablet by ity of 00:00: mouth [place] 00 every 6 Medical (six) Branch hours as needed for Pain (scale 4-6). albuterol 2021-04 Yes [id number] 2 puffs [facility] n[facility] 90 2-16 with ity of mcg/actuati 00:00: spacer 4 [place] on inhaler 00 times a Medica l day for at Branch least 7 days tiZANidine 2021-04 Yes [id number] 2mg Take 1 [facility] 2 mg tablet 2-16 tablet by ity of 00:00: mouth [place] 00 every 6 Medical (six) Branch hours as needed for Pain (scale 4-6). albuterol 2021-04 Yes [id number] 2 puffs [facility] n[facility] 90 2-16 with ity of mcg/actuati 00:00: spacer 4 [place] on inhaler 00 times a Medica l day for at Branch least 7 days tiZANidine 2021-04 Yes [id number] 2mg Take 1 [facility] 2 mg tablet 2-16 tablet by ity of 00:00: mouth [place] 00 every 6 Medical (six) Branch hours as needed for Pain (scale 4-6). albuterol 2021-04 Yes [id number] 2 puffs [facility] n[facility] 90 2-16 with ity of mcg/actuati 00:00: spacer 4 [place] on inhaler 00 times a Medica l day for at Branch least 7 days tiZANidine 2021-04 Yes [id number] 2mg Take 1 [facility] 2 mg tablet 2-16 tablet by ity of 00:00: mouth [place] 00 every 6 Medical (six) Branch hours as needed for Pain (scale 4-6). albuterol 2021-04 Yes [id number] 2 puffs [facility] n[facility] 90 2-16 with ity of mcg/actuati 00:00: spacer 4 [place] on inhaler 00 times a Medica l day for at Branch least 7 days tiZANidine 2021-04 Yes [id number] 2mg Take 1 [facility] 2 mg tablet 2-16 tablet by ity of 00:00: mouth [place] 00 every 6 Medical (six) Branch hours as needed for Pain (scale 4-6). albuterol 2021-04 Yes [id number] 2 puffs [facility] n[facility] 90 2-16 with ity of mcg/actuati 00:00: spacer 4 [place] on inhaler 00 times a Medica l day for at Branch least 7 days tiZANidine 2021-04 Yes [id number] 2mg Take 1 [facility] 2 mg tablet 2-16 tablet by ity of 00:00: mouth [place] 00 every 6 Medical (six) Branch hours as needed for Pain (scale 4-6). albuterol 2021-04 Yes [id number] 2 puffs [facility] nivers 90 2-16 with ity of mcg/actuati 00:00: spacer 4 [place] on inhaler 00 times a Medica l day for at Branch least 7 days tiZANidine 2021-04 Yes [id number] 2mg Take 1 [facility] 2 mg tablet 2-16 tablet by ity of 00:00: mouth [place] 00 every 6 Medical (six) Branch hours as needed for Pain (scale 4-6). albuterol 2021-04 Yes [id number] 2 puffs [facility] nivers 90 2-16 with ity of mcg/actuati 00:00: spacer 4 [place] on inhaler 00 times a Medica l day for at Branch least 7 days tiZANidine 2021-04 Yes [id number] 2mg Take 1 [facility] 2 mg tablet 2-16 tablet by ity of 00:00: mouth [place] 00 every 6 Medical (six) Branch hours as needed for Pain (scale 4-6). albuterol 2021-04 Yes [id number] 2 puffs [facility] nivers 90 2-16 with ity of mcg/actuati 00:00: spacer 4 [place] on inhaler 00 times a Medica l day for at Branch least 7 days tiZANidine 2021-04 Yes [id number] 2mg Take 1 [facility] 2 mg tablet 2-16 tablet by ity of 00:00: mouth [place] 00 every 6 Medical (six) Branch hours as needed for Pain (scale 4-6). albuterol 2021-04 Yes [id number] 2 puffs [facility] nivers 90 2-16 with ity of mcg/actuati 00:00: spacer 4 [place] on inhaler 00 times a Medica l day for at Branch least 7 days tiZANidine 2021-04 Yes [id number] 2mg Take 1 [facility] 2 mg tablet 2-16 tablet by ity of 00:00: mouth [place] 00 every 6 Medical (six) Branch hours as needed for Pain (scale 4-6). albuterol 2021-04 Yes [id number] 2 puffs U nivers 90 2-16 with ity of mcg/actuati 00:00: spacer 4 [place] on inhaler 00 times a Medica l day for at Branch least 7 days tiZANidine 2021-04 Yes [id number] 2mg Take 1 [facility] 2 mg tablet 2-16 tablet by ity of 00:00: mouth [place] 00 every 6 Medical (six) Branch hours as needed for Pain (scale 4-6). albuterol 2021-04 Yes [id number] 2 puffs U nivers 90 2-16 with ity of mcg/actuati 00:00: spacer 4 [place] on inhaler 00 times a Medica l day for at Branch least 7 days tiZANidine 2021-04 Yes [id number] 2mg Take 1 [facility] 2 mg tablet 2-16 tablet by ity of 00:00: mouth [place] 00 every 6 Medical (six) Branch hours as needed for Pain (scale 4-6). albuterol 2021-04 Yes [id number] 2 puffs [facility] nivers 90 2-16 with ity of mcg/actuati 00:00: spacer 4 [place] on inhaler 00 times a Medica l day for at Branch least 7 days tiZANidine 2021-04 Yes [id number] 2mg Take 1 [facility] 2 mg tablet 2-16 tablet by ity of 00:00: mouth [place] 00 every 6 Medical (six) Branch hours as needed for Pain (scale 4-6). albuterol 2021-04 Yes [id number] 2 puffs U nivers 90 2-16 with ity of mcg/actuati 00:00: spacer 4 [place] on inhaler 00 times a Medica l day for at Branch least 7 days tiZANidine 2021-04 Yes [id number] 2mg Take 1 [facility] 2 mg tablet 2-16 tablet by ity of 00:00: mouth [place] 00 every 6 Medical (six) Branch hours as needed for Pain (scale 4-6). albuterol 2021-04 Yes [id number] 2 puffs U nivers 90 2-16 with ity of mcg/actuati 00:00: spacer 4 [place] on inhaler 00 times a Medica l day for at Branch least 7 days tiZANidine 2021-04 Yes [id number] 2mg Take 1 [facility] 2 mg tablet 2-16 tablet by ity of 00:00: mouth [place] 00 every 6 Medical (six) Branch hours as needed for Pain (scale 4-6). albuterol 2021-04 Yes [id number] 2 puffs U nivers 90 2-16 with ity of mcg/actuati 00:00: spacer 4 [place] on inhaler 00 times a Medica l day for at Branch least 7 days tiZANidine 2021-04 Yes [id number] 2mg Take 1 [facility] 2 mg tablet 2-16 tablet by ity of 00:00: mouth [place] 00 every 6 Medical (six) Branch hours as needed for Pain (scale 4-6). albuterol 2021-04 Yes [id number] 2 puffs U nivers 90 2-16 with ity of mcg/actuati 00:00: spacer 4 [place] on inhaler 00 times a Medica l day for at Branch least 7 days tiZANidine 2021-04 Yes [id number] 2mg Take 1 [facility] 2 mg tablet 2-16 tablet by ity of 00:00: mouth [place] 00 every 6 Medical (six) Branch hours as needed for Pain (scale 4-6). albuterol 2021-04 Yes [id number] 2 puffs U nivers 90 2-16 with ity of mcg/actuati 00:00: spacer 4 [place] on inhaler 00 times a Medica l day for at Branch least 7 days tiZANidine 2021-04 Yes [id number] 2mg Take 1 [facility] 2 mg tablet 2-16 tablet by ity of 00:00: mouth [place] 00 every 6 Medical (six) Branch hours as needed for Pain (scale 4-6). albuterol 2021-04 Yes [id number] 2 puffs U nivers 90 2-16 with ity of mcg/actuati 00:00: spacer 4 [place] on inhaler 00 times a Medica l day for at Branch least 7 days tiZANidine 2021-04 Yes [id number] 2mg Take 1 [facility] 2 mg tablet 2-16 tablet by ity of 00:00: mouth [place] 00 every 6 Medical (six) Branch hours as needed for Pain (scale 4-6). albuterol 2021-04 Yes [id number] 2 puffs [facility] nivers 90 2-16 with ity of mcg/actuati 00:00: spacer 4 [place] on inhaler 00 times a Medica l day for at Branch least 7 days tiZANidine 2021-04 Yes [id number] 2mg Take 1 [facility] 2 mg tablet 2-16 tablet by ity of 00:00: mouth [place] 00 every 6 Medical (six) Branch hours as needed for Pain (scale 4-6). albuterol 2021-04 Yes [id number] 2 puffs U nivers 90 2-16 with ity of mcg/actuati 00:00: spacer 4 [place] inhaler 00 times a Medica l day for at Branch least 7 days tiZANidine 2021-04 Yes [id number] 2mg Take 1 [facility] 2 mg tablet 2-16 tablet by ity of 00:00: mouth [place] 00 every 6 Medical (six) Branch hours as needed for Pain (scale 4-6). albuterol 2021-04 Yes [id number] 2 puffs U nivers 90 2-16 with ity of mcg/actuati 00:00: spacer 4 [place] inhaler 00 times a Medica l day for at Branch least 7 days tiZANidine 2021-04 Yes [id number] 2mg Take 1 [facility] 2 mg tablet 2-16 tablet by ity of 00:00: mouth [place] 00 every 6 Medical (six) Branch hours as needed for Pain (scale 4-6). albuterol 2021-04 Yes [id number] 2 puffs U nivers 90 2-16 with ity of mcg/actuati 00:00: spacer 4 [place] inhaler 00 times a Medica l day for at Branch least 7 days tiZANidine 2021-04 Yes [id number] 2mg Take 1 [facility] 2 mg tablet 2-16 tablet by ity of 00:00: mouth [place] 00 every 6 Medical (six) Branch hours as needed for Pain (scale 4-6). albuterol 2021-04 Yes [id number] 2 puffs U nivers 90 2-16 with ity of mcg/actuati 00:00: spacer 4 [place] inhaler 00 times a Medica l day for at Branch least 7 days tiZANidine 2021-04 Yes [id number] 2mg Take 1 [facility] 2 mg tablet 2-16 tablet by ity of 00:00: mouth [place] 00 every 6 Medical (six) Branch hours as needed for Pain (scale 4-6). albuterol 2021-04 Yes [id number] 2 puffs U nivers 90 2-16 with ity of mcg/actuati 00:00: spacer 4 [place] inhaler 00 times a Medica l day for at Branch least 7 days tiZANidine 2021-04 Yes [id number] 2mg Take 1 [facility] 2 mg tablet 2-16 tablet by ity of 00:00: mouth [place] 00 every 6 Medical (six) Branch hours as needed for Pain (scale 4-6). albuterol 2021-04 Yes [id number] 2 puffs U nivers 90 2-16 with ity of mcg/actuati 00:00: spacer 4 [place] on inhaler 00 times a Medica l day for at Branch least 7 days tiZANidine 2021-04 Yes [id number] 2mg Take 1 [facility] 2 mg tablet 2-16 tablet by ity of 00:00: mouth [place] 00 every 6 Medical (six) Branch hours as needed for Pain (scale 4-6). albuterol 2021-04 Yes [id number] 2 puffs U nivers 90 2-16 with ity of mcg/actuati 00:00: spacer 4 [place] inhaler 00 times a Medica l day for at Branch least 7 days tiZANidine 2021-04 Yes [id number] 2mg Take 1 [facility] 2 mg tablet 2-16 tablet by ity of 00:00: mouth [place] 00 every 6 Medical (six) Branch hours as needed for Pain (scale 4-6). albuterol 2021-04 Yes [id number] 2 puffs [facility] nivers 90 2-16 with ity of mcg/actuati 00:00: spacer 4 [place] inhaler 00 times a Medica l day for at Branch least 7 days tiZANidine 2021-04 Yes [id number] 2mg Take 1 [facility] 2 mg tablet 2-16 tablet by ity of 00:00: mouth [place] 00 every 6 Medical (six) Branch hours as needed for Pain (scale 4-6). albuterol 2021-04 Yes [id number] 2 puffs U nivers 90 2-16 with ity of mcg/actuati 00:00: spacer 4 [place] inhaler 00 times a Medica l day for at Branch least 7 days tiZANidine 2021-04 Yes [id number] 2mg Take 1 [facility] 2 mg tablet 2-16 tablet by ity of 00:00: mouth [place] 00 every 6 Medical (six) Branch hours as needed for Pain (scale 4-6). albuterol 2021-04 Yes [id number] 2 puffs U nivers 90 2-16 with ity of mcg/actuati 00:00: spacer 4 [place] inhaler 00 times a Medica l day for at Branch least 7 days tiZANidine 2021-04 Yes [id number] 2mg Take 1 [facility] 2 mg tablet 2-16 tablet by ity of 00:00: mouth [place] 00 every 6 Medical (six) Branch hours as needed for Pain (scale 4-6). albuterol 2021-04 Yes [id number] 2 puffs [facility] nivers 90 2-16 with ity of mcg/actuati 00:00: spacer 4 [place] inhaler 00 times a Medica l day for at Branch least 7 days tiZANidine 2021-04 Yes [id number] 2mg Take 1 [facility] 2 mg tablet 2-16 tablet by ity of 00:00: mouth [place] 00 every 6 Medical (six) Branch hours as needed for Pain (scale 4-6). albuterol 2021-04 Yes [id number] 2 puffs U nivers 90 2-16 with ity of mcg/actuati 00:00: spacer 4 [place] on inhaler 00 times a Medica l day for at Branch least 7 days tiZANidine 2021-04 Yes [id number] 2mg Take 1 [facility] 2 mg tablet 2-16 tablet by ity of 00:00: mouth [place] 00 every 6 Medical (six) Branch hours as needed for Pain (scale 4-6). albuterol 2021-04 Yes [id number] 2 puffs U nivers 90 2-16 with ity of mcg/actuati 00:00: spacer 4 [place] on inhaler 00 times a Medica l day for at Branch least 7 days tiZANidine 2021-04 Yes [id number] 2mg Take 1 [facility] 2 mg tablet 2-16 tablet by ity of 00:00: mouth [place] 00 every 6 Medical (six) Branch hours as needed for Pain (scale 4-6). albuterol 2021-04 Yes [id number] 2 puffs U nivers 90 2-16 with ity of mcg/actuati 00:00: spacer 4 [place] inhaler 00 times a Medica l day for at Branch least 7 days albuterol 2021-04 Yes [id number] 2 puffs [facility] nivers 90 2-16 with ity of mcg/actuati 00:00: spacer 4 [place] inhaler 00 times a Medica l day for at Branch least 7 days albuterol 2021-04 Yes [id number] 2 puffs [facility] nivers 90 2-16 with ity of mcg/actuati 00:00: spacer 4 [place] inhaler 00 times a Medica l day for at Branch least 7 days albuterol 2021-04 Yes [id number] 2 puffs [facility] n[facility] 90 2-16 with ity of mcg/actuati 00:00: spacer 4 [place] inhaler 00 times a Medica l day for at Branch least 7 days albuterol 2021-04 Yes [id number] 2 puffs [facility] nivers 90 2-16 with ity of mcg/actuati 00:00: spacer 4 [place] inhaler 00 times a Medica l day for at Branch least 7 days albuterol 2021-04 Yes [id number] 2 puffs [facility] nivers 90 2-16 with ity of mcg/actuati 00:00: spacer 4 [place] inhaler 00 times a Medica l day for at Branch least 7 days albuterol 2021-04 Yes [id number] 2 puffs [facility] nivers 90 2-16 with ity of mcg/actuati 00:00: spacer 4 [place] inhaler 00 times a Medica l day for at Branch least 7 days albuterol 2021-04 Yes [id number] 2 puffs [facility] nivers 90 2-16 with ity of mcg/actuati 00:00: spacer 4 [place] inhaler 00 times a Medica l day for at Branch least 7 days albuterol 2021-04 Yes [id number] 2 puffs [facility] n[facility] 90 2-16 with ity of mcg/actuati 00:00: spacer 4 [place] inhaler 00 times a Medica l day for at Branch least 7 days albuterol 2021-04 Yes [id number] 2 puffs [facility] nivers 90 2-16 with ity of mcg/actuati 00:00: spacer 4 [place] inhaler 00 times a Medica l day for at Branch least 7 days tiZANidine 2021-04- No [id number] 2mg Take 1 [facility] 2 mg tablet 05-30- tablet by it y of 00:00: 00:00 mouth [place] 00 :00 every 6 Medical (six) Branch hours as needed for Pain (scale 4-6). tiZANidine 2021-04- No [id number] 2mg Take 1 [facility] 2 mg tablet 2-16 -28 tablet by it y of 00:00: 00:00 mouth [place] 00 :00 every 6 Medical (six) Branch hours as needed for Pain (scale 4-6). ergocalcife 2021-04 Yes [id number] TAKE 1 [facility] rol, 2-09 CAPSULE BY ity of vitamin d2, 00:00: MOUTH [place] 1,250 mcg 00 EVERY TWO Medic al (50,000 WEEKS WITH Branch unit) FOOD capsule NIFEdipine 2021-04 Yes [id number] 60mg Take 1 [facility] n[facility] XL 60 mg 24 2-09 tablet by ity of hr tablet 00:00: mouth [place] 00 the Medical morning. Branch ergocalcife 2021-04 Yes [id number] TAKE 1 [facility] rol, 2-09 CAPSULE BY ity of vitamin d2, 00:00: MOUTH [place] 1,250 mcg 00 EVERY TWO Medic al (50,000 WEEKS WITH Branch unit) FOOD capsule NIFEdipine 2021-04 Yes [id number] 60mg Take 1 [facility] n[facility] XL 60 mg 24 2-09 tablet by [facility] of hr tablet 00:00: mouth [place] 00 the Medical morning. Branch ergocalcife 2021-04 Yes [id number] TAKE 1 [facility] rol, 2-09 CAPSULE BY ity of vitamin d2, 00:00: MOUTH [place] 1,250 mcg 00 EVERY TWO Medic al (50,000 WEEKS WITH Branch unit) FOOD capsule NIFEdipine 2021-04 Yes [id number] 60mg Take 1 [facility] n[facility] XL 60 mg 24 2-09 tablet by ity of hr tablet 00:00: mouth [place] 00 the Medical morning. Branch ergocalcife 2021-04 Yes [id number] TAKE 1 [facility] rol, 2-09 CAPSULE BY ity of vitamin d2, 00:00: MOUTH [place] 1,250 mcg 00 EVERY TWO Medic al (50,000 WEEKS WITH Branch unit) FOOD capsule NIFEdipine 2021-04 Yes [id number] 60mg Take 1 [facility] n[facility] XL 60 mg 24 2-09 tablet by ity of hr tablet 00:00: mouth [place] 00 the Medical morning. Branch ergocalcife 2021-04 Yes [id number] TAKE 1 [facility] rol, 2-09 CAPSULE BY ity of vitamin d2, 00:00: MOUTH [place] 1,250 mcg 00 EVERY TWO Medic al (50,000 WEEKS WITH Branch unit) FOOD capsule NIFEdipine 2021-04 Yes [id number] 60mg Take 1 [facility] n[facility] XL 60 mg 24 2-09 tablet by [facility] of hr tablet 00:00: mouth [place] 00 the Medical morning. Branch ergocalcife 2021-04 Yes [id number] TAKE 1 [facility] rol, 2-09 CAPSULE BY ity of vitamin d2, 00:00: MOUTH [place] 1,250 mcg 00 EVERY TWO Medic al (50,000 WEEKS WITH Branch unit) FOOD capsule NIFEdipine 2021-04 Yes [id number] 60mg Take 1 [facility] n[facility] XL 60 mg 24 2-09 tablet by ity of hr tablet 00:00: mouth [place] 00 the Medical morning. [place] ergocalcife 2021-04 Yes [id number] TAKE 1 [facility] rol, 2-09 CAPSULE BY ity of vitamin d2, 00:00: MOUTH [place] 1,250 mcg 00 EVERY TWO Medic al (50,000 WEEKS WITH Branch unit) FOOD capsule NIFEdipine 2021-04 Yes [id number] 60mg Take 1 [facility] nivers XL 60 mg 24 2-09 tablet by ity of hr tablet 00:00: mouth [place] 00 the Medical morning. Branch ergocalcife 2021-04 Yes [id number] TAKE 1 [facility] rol, 2-09 CAPSULE BY ity of vitamin d2, 00:00: MOUTH [place] 1,250 mcg 00 EVERY TWO Medic al (50,000 WEEKS WITH Branch unit) FOOD capsule NIFEdipine 2021-04 Yes [id number] 60mg Take 1 [facility] nivers XL 60 mg 24 2-09 tablet by ity of hr tablet 00:00: mouth [place] 00 the Medical morning. [place] ergocalcife 2021-04 Yes [id number] TAKE 1 [facility] rol, 2-09 CAPSULE BY ity of vitamin d2, 00:00: MOUTH [place] 1,250 mcg 00 EVERY TWO Medic al (50,000 WEEKS WITH Branch unit) FOOD capsule NIFEdipine 2021-04 Yes [id number] 60mg Take 1 [facility] nivers XL 60 mg 24 2-09 tablet by ity of hr tablet 00:00: mouth [place] 00 the Medical morning. [place] ergocalcife 2021-04 Yes [id number] TAKE 1 [facility] rol, 2-09 CAPSULE BY ity of vitamin d2, 00:00: MOUTH [place] 1,250 mcg 00 EVERY TWO Medic al (50,000 WEEKS WITH Branch unit) FOOD capsule NIFEdipine 2021-04 Yes [id number] 60mg Take 1 [facility] n[facility] XL 60 mg 24 2-09 tablet by ity of hr tablet 00:00: mouth [place] 00 the Medical morning. Branch ergocalcife 2021-04 Yes [id number] TAKE 1 [facility] rol, 2-09 CAPSULE BY ity of vitamin d2, 00:00: MOUTH [place] 1,250 mcg 00 EVERY TWO Medic al (50,000 WEEKS WITH Branch unit) FOOD capsule NIFEdipine 2021-04 Yes [id number] 60mg Take 1 [facility] n[facility] XL 60 mg 24 2-09 tablet by ity of hr tablet 00:00: mouth [place] 00 the Medical morning. [place] ergocalcife 2021-04 Yes [id number] TAKE 1 [facility] rol, 2-09 CAPSULE BY ity of vitamin d2, 00:00: MOUTH [place] 1,250 mcg 00 EVERY TWO Medic al (50,000 WEEKS WITH Branch unit) FOOD capsule NIFEdipine 2021-04 Yes [id number] 60mg Take 1 [facility] n[facility] XL 60 mg 24 2-09 tablet by ity of hr tablet 00:00: mouth [place] 00 the Medical morning. Branch ergocalcife 2021-04 Yes [id number] TAKE 1 [facility] rol, 2-09 CAPSULE BY ity of vitamin d2, 00:00: MOUTH [place] 1,250 mcg 00 EVERY TWO Medic al (50,000 WEEKS WITH Branch unit) FOOD capsule NIFEdipine 2021-04 Yes [id number] 60mg Take 1 [facility] n[facility] XL 60 mg 24 2-09 tablet by ity of hr tablet 00:00: mouth [place] 00 the Medical morning. [place] ergocalcife 2021-04 Yes [id number] TAKE 1 [facility] rol, 2-09 CAPSULE BY ity of vitamin d2, 00:00: MOUTH [place] 1,250 mcg 00 EVERY TWO Medic al (50,000 WEEKS WITH Branch unit) FOOD capsule NIFEdipine 2021-04 Yes [id number] 60mg Take 1 [facility] n[facility] XL 60 mg 24 2-09 tablet by ity of hr tablet 00:00: mouth [place] 00 the Medical morning. [place] ergocalcife 2021-04 Yes [id number] TAKE 1 [facility] rol, 2-09 CAPSULE BY ity of vitamin d2, 00:00: MOUTH [place] 1,250 mcg 00 EVERY TWO Medic al (50,000 WEEKS WITH Branch unit) FOOD capsule NIFEdipine 2021-04 Yes [id number] 60mg Take 1 [facility] n[facility] XL 60 mg 24 2-09 tablet by [facility]y of hr tablet 00:00: mouth [place] 00 the Medical morning. Branch ergocalcife 2021-04 Yes [id number] TAKE 1 [facility] rol, 2-09 CAPSULE BY ity of vitamin d2, 00:00: MOUTH [place] 1,250 mcg 00 EVERY TWO Medic al (50,000 WEEKS WITH Branch unit) FOOD capsule NIFEdipine 2021-04 Yes [id number] 60mg Take 1 [facility] n[facility] XL 60 mg 24 2-09 tablet by ity of hr tablet 00:00: mouth [place] 00 the Medical morning. Branch ergocalcife 2021-04 Yes [id number] TAKE 1 [facility] rol, 2-09 CAPSULE BY ity of vitamin d2, 00:00: MOUTH [place] 1,250 mcg 00 EVERY TWO Medic al (50,000 WEEKS WITH Branch unit) FOOD capsule NIFEdipine 2021-04 Yes [id number] 60mg Take 1 [facility] n[facility] XL 60 mg 24 2-09 tablet by ity of hr tablet 00:00: mouth [place] 00 the Medical morning. Branch ergocalcife 2021-04 Yes [id number] TAKE 1 [facility] rol, 2-09 CAPSULE BY ity of vitamin d2, 00:00: MOUTH [place] 1,250 mcg 00 EVERY TWO Medic al (50,000 WEEKS WITH Branch unit) FOOD capsule NIFEdipine 2021-04 Yes [id number] 60mg Take 1 [facility] n[facility] XL 60 mg 24 2-09 tablet by ity of hr tablet 00:00: mouth [place] 00 the Medical morning. Branch ergocalcife 2021-04 Yes [id number] TAKE 1 [facility] rol, 2-09 CAPSULE BY ity of vitamin d2, 00:00: MOUTH [place] 1,250 mcg 00 EVERY TWO Medic al (50,000 WEEKS WITH Branch unit) FOOD capsule NIFEdipine 2021-04 Yes [id number] 60mg Take 1 [facility] n[facility] XL 60 mg 24 2-09 tablet by ity of hr tablet 00:00: mouth [place] 00 the Medical morning. Branch ergocalcife 2021-04 Yes [id number] TAKE 1 [facility] rol, 2-09 CAPSULE BY ity of vitamin d2, 00:00: MOUTH [place] 1,250 mcg 00 EVERY TWO Medic al (50,000 WEEKS WITH Branch unit) FOOD capsule NIFEdipine 2021-04 Yes [id number] 60mg Take 1 [facility] nivers XL 60 mg 24 2-09 tablet by ity of hr tablet 00:00: mouth [place] 00 the Medical morning. Branch ergocalcife 2021-04 Yes [id number] TAKE 1 [facility] rol, 2-09 CAPSULE BY ity of vitamin d2, 00:00: MOUTH [place] 1,250 mcg 00 EVERY TWO Medic al (50,000 WEEKS WITH Branch unit) FOOD capsule NIFEdipine 2021-04 Yes [id number] 60mg Take 1 [facility] n[facility] XL 60 mg 24 2-09 tablet by ity of hr tablet 00:00: mouth [place] 00 the Medical morning. Branch ergocalcife 2021-04 Yes [id number] TAKE 1 [facility] rol, 2-09 CAPSULE BY ity of vitamin d2, 00:00: MOUTH [place] 1,250 mcg 00 EVERY TWO Medic al (50,000 WEEKS WITH Branch unit) FOOD capsule NIFEdipine 2021-04 Yes [id number] 60mg Take 1 [facility] n[facility] XL 60 mg 24 2-09 tablet by ity of hr tablet 00:00: mouth [place] 00 the Medical morning. Branch ergocalcife 2021-04 Yes [id number] TAKE 1 [facility] rol, 2-09 CAPSULE BY ity of vitamin d2, 00:00: MOUTH [place] 1,250 mcg 00 EVERY TWO Medic al (50,000 WEEKS WITH Branch unit) FOOD capsule NIFEdipine 2021-04 Yes [id number] 60mg Take 1 [facility] n[facility] XL 60 mg 24 2-09 tablet by ity of hr tablet 00:00: mouth [place] 00 the Medical morning. Branch ergocalcife 2021-04 Yes [id number] TAKE 1 [facility] rol, 2-09 CAPSULE BY ity of vitamin d2, 00:00: MOUTH [place] 1,250 mcg 00 EVERY TWO Medic al (50,000 WEEKS WITH Branch unit) FOOD capsule NIFEdipine 2021-04 Yes [id number] 60mg Take 1 [facility] n[facility] XL 60 mg 24 2-09 tablet by ity of hr tablet 00:00: mouth [place] 00 the Medical morning. Branch ergocalcife 2021-04 Yes [id number] TAKE 1 [facility] rol, 2-09 CAPSULE BY ity of vitamin d2, 00:00: MOUTH [place] 1,250 mcg 00 EVERY TWO Medic al (50,000 WEEKS WITH Branch unit) FOOD capsule NIFEdipine 2021-04 Yes [id number] 60mg Take 1 [facility] n[facility] XL 60 mg 24 2-09 tablet by ity of hr tablet 00:00: mouth [place] 00 the Medical morning. Branch ergocalcife 2021-04 Yes [id number] TAKE 1 [facility] rol, 2-09 CAPSULE BY ity of vitamin d2, 00:00: MOUTH [place] 1,250 mcg 00 EVERY TWO Medic al (50,000 WEEKS WITH Branch unit) FOOD capsule NIFEdipine 2021-04 Yes [id number] 60mg Take 1 [facility] XL 60 mg 24 2-09 tablet by ity of hr tablet 00:00: mouth [place] 00 the Medical morning. Branch ergocalcife 2021- Yes [id number] TAKE 1 [facility] rol, 2-09 CAPSULE BY ity of vitamin d2, 00:00: MOUTH [place] 1,250 mcg 00 EVERY TWO Medic al (50,000 WEEKS WITH Branch unit) FOOD capsule ergocalcife 2021- Yes [id number] TAKE 1 [facility] rol, 2-09 CAPSULE BY ity of vitamin d2, 00:00: MOUTH [place] 1,250 mcg 00 EVERY TWO Medic al (50,000 WEEKS WITH Branch unit) FOOD capsule ergocalcife 2021- Yes [id number] TAKE 1 [facility] rol, 2-09 CAPSULE BY ity of vitamin d2, 00:00: MOUTH [place] 1,250 mcg 00 EVERY TWO Medic al (50,000 WEEKS WITH Branch unit) FOOD capsule ergocalcife 2021- Yes [id number] TAKE 1 [facility] rol, 2-09 CAPSULE BY ity of vitamin d2, 00:00: MOUTH [place] 1,250 mcg 00 EVERY TWO Medic al (50,000 WEEKS WITH Branch unit) FOOD capsule ergocalcife 2021- Yes [id number] TAKE 1 [facility] rol, 2-09 CAPSULE BY ity of vitamin d2, 00:00: MOUTH [place] 1,250 mcg 00 EVERY TWO Medic al (50,000 WEEKS WITH Branch unit) FOOD capsule ergocalcife 2021- Yes [id number] TAKE 1 [facility] rol, 2-09 CAPSULE BY ity of vitamin d2, 00:00: MOUTH [place] 1,250 mcg 00 EVERY TWO Medic al (50,000 WEEKS WITH Branch unit) FOOD capsule ergocalcife 2021- Yes [id number] TAKE 1 [facility] rol, 2-09 CAPSULE BY ity of vitamin d2, 00:00: MOUTH [place] 1,250 mcg 00 EVERY TWO Medic al (50,000 WEEKS WITH Branch unit) FOOD capsule ergocalcife 2021-1 Yes [id number] TAKE 1 [facility] rol, 2-09 CAPSULE BY ity of vitamin d2, 00:00: MOUTH [place] 1,250 mcg 00 EVERY TWO Medic al (50,000 WEEKS WITH Branch unit) FOOD capsule ergocalcife 2021-1 Yes [id number] TAKE 1 [facility] rol, 2-09 CAPSULE BY ity of vitamin d2, 00:00: MOUTH [place] 1,250 mcg 00 EVERY TWO Medic al (50,000 WEEKS WITH Branch unit) FOOD capsule ergocalcife 2-1 Yes [id number] TAKE 1 [facility] rol, 2-09 CAPSULE BY ity of vitamin d2, 00:00: MOUTH [place] 1,250 mcg 00 EVERY TWO Medic al (50,000 WEEKS WITH Branch unit) FOOD capsule ergocalcife 2-1 Yes [id number] TAKE 1 [facility] rol, 2-09 CAPSULE BY ity of vitamin d2, 00:00: MOUTH [place] 1,250 mcg 00 EVERY TWO Medic al (50,000 WEEKS WITH Branch unit) FOOD capsule ergocalcife 2-1 Yes [id number] TAKE 1 [facility] rol, 2-09 CAPSULE BY ity of vitamin d2, 00:00: MOUTH [place] 1,250 mcg 00 EVERY TWO Medic al (50,000 WEEKS WITH Branch unit) FOOD capsule ergocalcife 2-1 Yes [id number] TAKE 1 [facility] rol, 2-09 CAPSULE BY ity of vitamin d2, 00:00: MOUTH [place] 1,250 mcg 00 EVERY TWO Medic al (50,000 WEEKS WITH Branch unit) FOOD capsule ergocalcife 2021-1 Yes [id number] TAKE 1 [facility] rol, 2-09 CAPSULE BY ity of vitamin d2, 00:00: MOUTH [place] 1,250 mcg 00 EVERY TWO Medic al (50,000 WEEKS WITH Branch unit) FOOD capsule ergocalcife 2021-1 Yes [id number] TAKE 1 [facility] rol, 2-09 CAPSULE BY ity of vitamin d2, 00:00: MOUTH [place] 1,250 mcg 00 EVERY TWO Medic al (50,000 WEEKS WITH Branch unit) FOOD capsule ergocalcife 2-1 Yes [id number] TAKE 1 [facility] rol, 2-09 CAPSULE BY ity of vitamin d2, 00:00: MOUTH [place] 1,250 mcg 00 EVERY TWO Medic al (50,000 WEEKS WITH Branch unit) FOOD capsule ergocalcife 2-1 Yes [id number] TAKE 1 [facility] rol, 2-09 CAPSULE BY ity of vitamin d2, 00:00: MOUTH [place] 1,250 mcg 00 EVERY TWO Medic al (50,000 WEEKS WITH Branch unit) FOOD capsule ergocalcife 2-1 Yes [id number] TAKE 1 [facility] rol, 2-09 CAPSULE BY ity of vitamin d2, 00:00: MOUTH [place] 1,250 mcg 00 EVERY TWO Medic al (50,000 WEEKS WITH Branch unit) FOOD capsule ergocalcife 2-1 Yes [id number] TAKE 1 [facility] rol, 2-09 CAPSULE BY ity of vitamin d2, 00:00: MOUTH [place] 1,250 mcg 00 EVERY TWO Medic al (50,000 WEEKS WITH Branch unit) FOOD capsule ergocalcife 2-1 Yes [id number] TAKE 1 [facility] rol, 2-09 CAPSULE BY ity of vitamin d2, 00:00: MOUTH [place] 1,250 mcg 00 EVERY TWO Medic al (50,000 WEEKS WITH Branch unit) FOOD capsule ergocalcife 2-1 Yes [id number] TAKE 1 [facility] rol, 2-09 CAPSULE BY ity of vitamin d2, 00:00: MOUTH [place] 1,250 mcg 00 EVERY TWO Medic al (50,000 WEEKS WITH Branch unit) FOOD capsule ergocalcife 2-1 Yes [id number] TAKE 1 [facility] rol, 2-09 CAPSULE BY ity of vitamin d2, 00:00: MOUTH [place] 1,250 mcg 00 EVERY TWO Medic al (50,000 WEEKS WITH Branch unit) FOOD capsule ergocalcife 2021-1 Yes [id number] TAKE 1 [facility] rol, 2-09 CAPSULE BY ity of vitamin d2, 00:00: MOUTH [place] 1,250 mcg 00 EVERY TWO Medic al (50,000 WEEKS WITH Branch unit) FOOD capsule ergocalcife 2021-1 Yes [id number] TAKE 1 [facility] rol, 2-09 CAPSULE BY ity of vitamin d2, 00:00: MOUTH [place] 1,250 mcg 00 EVERY TWO Medic al (50,000 WEEKS WITH Branch unit) FOOD capsule ergocalcife 2021-1 Yes [id number] TAKE 1 [facility] rol, 2-09 CAPSULE BY ity of vitamin d2, 00:00: MOUTH [place] 1,250 mcg 00 EVERY TWO Medic al (50,000 WEEKS WITH Branch unit) FOOD capsule ergocalcife 2-1 Yes [id number] TAKE 1 [facility] rol, 2-09 CAPSULE BY ity of vitamin d2, 00:00: MOUTH [place] 1,250 mcg 00 EVERY TWO Medic al (50,000 WEEKS WITH Branch unit) FOOD capsule ergocalcife 2-1 Yes [id number] TAKE 1 [facility] rol, 2-09 CAPSULE BY ity of vitamin d2, 00:00: MOUTH [place] 1,250 mcg 00 EVERY TWO Medic al (50,000 WEEKS WITH Branch unit) FOOD capsule ergocalcife 2-1 Yes [id number] TAKE 1 [facility] rol, 2-09 CAPSULE BY ity of vitamin d2, 00:00: MOUTH [place] 1,250 mcg 00 EVERY TWO Medic al (50,000 WEEKS WITH Branch unit) FOOD capsule ergocalcife 2021-04 Yes [id number] TAKE 1 [facility] rol, 2-09 CAPSULE BY ity of vitamin d2, 00:00: MOUTH [place] 1,250 mcg 00 EVERY TWO Medic al (50,000 WEEKS WITH Branch unit) FOOD capsule ergocalcife 2021-04 Yes [id number] TAKE 1 [facility] rol, 2-09 CAPSULE BY ity of vitamin d2, 00:00: MOUTH [place] 1,250 mcg 00 EVERY TWO Medic al (50,000 WEEKS WITH Branch unit) FOOD capsule ergocalcife 2021-04 Yes [id number] TAKE 1 [facility] rol, 2-09 CAPSULE BY ity of vitamin d2, 00:00: MOUTH [place] 1,250 mcg 00 EVERY TWO Medic al (50,000 WEEKS WITH Branch unit) FOOD capsule ergocalcife 2021-04 Yes [id number] TAKE 1 [facility] rol, 2-09 CAPSULE BY ity of vitamin d2, 00:00: MOUTH [place] 1,250 mcg 00 EVERY TWO Medic al (50,000 WEEKS WITH Branch unit) FOOD capsule ergocalcife 2021-04 Yes [id number] TAKE 1 [facility] rol, 2-09 CAPSULE BY ity of vitamin d2, 00:00: MOUTH [place] 1,250 mcg 00 EVERY TWO Medic al (50,000 WEEKS WITH Branch unit) FOOD capsule ergocalcife 2021-04 Yes [id number] TAKE 1 [facility] rol, 2-09 CAPSULE BY ity of vitamin d2, 00:00: MOUTH [place] 1,250 mcg 00 EVERY TWO Medic al (50,000 WEEKS WITH Branch unit) FOOD capsule ergocalcife 2021-04 Yes [id number] TAKE 1 [facility] rol, 2-09 CAPSULE BY ity of vitamin d2, 00:00: MOUTH [place] 1,250 mcg 00 EVERY TWO Medic al (50,000 WEEKS WITH Branch unit) FOOD capsule NIFEdipine 2021-04- No [id number] 60mg Take 1 [facility] XL 60 mg 24 05-23 tablet by it y of hr tablet 00:00: 00:00 mouth in [place] 00 :00 the Medical morning. Branch bismuth-met 2021-04 Yes [place] 140 [facility] ronidazole- -28 mg-125 ity of tetracyclin 14:47: mg-125 mg [place] (PYLERA) 17 capsule Medica l 140-125-125 Branch mg per capsule doxycycline 2021-04 Yes doxycyclin [facility] hyclate 100 - e hyclate ity of mg capsule 14:47: 100 mg [place] [address] capsule [facility] 2021-04 Yes [place] 140 [facility] ronidazole- 1-28 mg-125 ity of tetracyclin 14:47: mg-125 mg [place] (PYLERA) 17 capsule Medica l 140-125-125 Branch mg per capsule doxycycline 2021-04 Yes doxycyclin [facility] hyclate 100 05-11 e hyclate ity of mg capsule 14:47: 100 mg [place] [address] capsule [facility] 2021-04 Yes [place] 140 [facility] ronidazole- 1-28 mg-125 ity of tetracyclin 14:47: mg-125 mg [place] (PYLERA) 17 capsule Medica l 140-125-125 Branch mg per capsule doxycycline 2021-04 Yes doxycyclin [facility] hyclate 100 05-11 e hyclate ity of mg capsule 14:47: [address] 2021-04 Yes [place] 140 [facility] ronidazole- 1-28 mg-125 ity of tetracyclin 14:47: mg-125 mg [place] (PYLERA) 17 capsule Medica l 140-125-125 Branch mg per capsule doxycycline 2021-04 Yes doxycyclin [facility] hyclate 100 05-11 e hyclate ity of mg capsule 14:47: [address] 2021-04 Yes [place] 140 [facility] ronidazole- 1-28 mg-125 ity of tetracyclin 14:47: mg-125 mg [place] (PYLERA) 17 capsule Medica l 140-125-125 Branch mg per capsule doxycycline 2021-04 Yes doxycyclin [facility] hyclate 100 - e hyclate ity of mg capsule 14:47: 100 mg [place] [address] capsule [facility] 2021-04 Yes [place] 140 [facility] ronidazole- 1-28 mg-125 ity of tetracyclin 14:47: mg-125 mg [place] (PYLERA) 17 capsule Medica l 140-125-125 Branch mg per capsule doxycycline 2021-04 Yes doxycyclin [facility] hyclate 100 05-11 e hyclate ity of mg capsule 14:47: [address] 2021-04 Yes [place] 140 [facility] ronidazole- 1-28 mg-125 ity of tetracyclin 14:47: mg-125 mg [place] (PYLERA) 17 capsule Medica l 140-125-125 Branch mg per capsule doxycycline 2021-04 Yes doxycyclin [facility] hyclate 100 05-11 e hyclate ity of mg capsule 14:47: [address] 2021-04 Yes [place] 140 [facility] ronidazole- 1-28 mg-125 ity of tetracyclin 14:47: mg-125 mg [place] ([facility] 17 capsule Medica l 140-125-125 Branch mg per capsule doxycycline 2021-04 Yes doxycyclin [facility] hyclate 100 05-11 e hyclate ity of mg capsule 14:47: [address] 2021-04 Yes [place] 140 [facility] ronidazole- 1-28 mg-125 ity of tetracyclin 14:47: mg-125 mg [place] (PYLERA) 17 capsule Medica l 140-125-125 Branch mg per capsule doxycycline 2021-04 Yes doxycyclin [facility] hyclate 100 05-11 e hyclate ity of mg capsule 14:47: [address] 2021-04 Yes [place] 140 [facility] ronidazole- 1-28 mg-125 ity of tetracyclin 14:47: mg-125 mg [place] (PY[place]A) 17 capsule Medica l 140-125-125 Branch mg per capsule doxycycline 2021-04 Yes doxycyclin [facility] hyclate 100 - e hyclate ity of mg capsule 14:47: [address] 2021-04 Yes [place] 140 [facility] ronidazole- 1-28 mg-125 ity of tetracyclin 14:47: mg-125 mg [place] (PY[facility]) 17 capsule Medica l 140-125-125 Branch mg per capsule doxycycline 2021-04 Yes doxycyclin [facility] hyclate 100 05-11 e hyclate ity of mg capsule 14:47: 100 mg [place] [address] capsule [facility] 2021-04 Yes [place] 140 [facility] ronidazole- 1-28 mg-125 ity of tetracyclin 14:47: mg-125 mg [place] (PYLERA) 17 capsule Medica l 140-125-125 Branch mg per capsule doxycycline 2021-04 Yes doxycyclin [facility] hyclate 100 - e hyclate ity of mg capsule 14:47: 100 mg [place] [address] capsule [facility] 2021-04 Yes [place] 140 [facility] ronidazole- 1-28 mg-125 ity of tetracyclin 14:47: mg-125 mg [place] (PY[place]ERA) 17 capsule Medica l 140-125-125 Branch mg per capsule doxycycline 2021-04 Yes doxycyclin [facility] hyclate 100 05-11 e hyclate ity of mg capsule 14:47: [address] 2021-04 Yes [place] 140 [facility] ronidazole- 1-28 mg-125 ity of tetracyclin 14:47: mg-125 mg [place] (PYLERA) 17 capsule Medica l 140-125-125 Branch mg per capsule doxycycline 2021-04 Yes doxycyclin [facility] hyclate 100 05-11 e hyclate ity of mg capsule 14:47: [address] 2021-04 Yes [place] 140 [facility] ronidazole- 1-28 mg-125 ity of tetracyclin 14:47: mg-125 mg [place] (PYLERA) 17 capsule Medica l 140-125-125 Branch mg per capsule doxycycline 2021-04 Yes doxycyclin [facility] hyclate 100 05-11 e hyclate ity of mg capsule 14:47: 100 mg [place] [address] capsule [facility] 2021-04 Yes [place] 140 [facility] ronidazole- 1-28 mg-125 ity of tetracyclin 14:47: mg-125 mg [place] (PYLERA) 17 capsule Medica l 140-125-125 Branch mg per capsule doxycycline 2021-04 Yes doxycyclin [facility] hyclate 100 -28 e hyclate ity of mg capsule 14:47: 100 mg [place] [address] capsule [facility] 2021-04 Yes [place] 140 [facility] ronidazole- 1-28 mg-125 ity of tetracyclin 14:47: mg-125 mg [place] (PYLERA) 17 capsule Medica l 140-125-125 Branch mg per capsule doxycycline 2021-04 Yes doxycyclin [facility] hyclate 100 -28 e hyclate ity of mg capsule 14:47: [address] 2021-04 Yes [place] 140 [facility] ronidazole- 1-28 mg-125 ity of tetracyclin 14:47: mg-125 mg [place] (PYLERA) 17 capsule Medica l 140-125-125 Branch mg per capsule doxycycline 2021-04 Yes doxycyclin [facility] hyclate 100 05-11 e hyclate ity of mg capsule 14:47: [address] 2021-04 Yes [place] 140 [facility] ronidazole- 1-28 mg-125 ity of tetracyclin 14:47: mg-125 mg [place] (PY[facility]ERA) capsule Medica l 140-125-125 Branch mg per capsule doxycycline 2021-04 Yes doxycyclin [facility] hyclate 100 05-11 e hyclate ity of mg capsule 14:47: [address] 2021-04 Yes [place] 140 [facility] ronidazole- 1-28 mg-125 ity of tetracyclin 14:47: mg-125 mg [place] (PYLERA) capsule Medica l 140-125-125 Branch mg per capsule doxycycline 2021-04 Yes doxycyclin [facility] hyclate 100 05-11 e hyclate ity of mg capsule 14:47: [address] 2021-04 Yes [place] 140 [facility] ronidazole- 1-28 mg-125 ity of tetracyclin 14:47: mg-125 mg [place] (PY[facility]ERA) 17 capsule Medica l 140-125-125 Branch mg per capsule doxycycline 2021-04 Yes doxycyclin [facility] hyclate 100 -28 e hyclate ity of mg capsule 14:47: [address] 2021-04 Yes [place] 140 [facility] ronidazole- 1-28 mg-125 ity of tetracyclin 14:47: mg-125 mg [place] (PYLERA) 17 capsule Medica l 140-125-125 Branch mg per capsule doxycycline 2021-04 Yes doxycyclin [facility] hyclate 100 - e hyclate ity of mg capsule 14:47: 100 mg [place] [address] capsule [facility] 2021-04 Yes [place] 140 [facility] ronidazole- 1-28 mg-125 ity of tetracyclin 14:47: mg-125 mg [place] (PYLERA) 17 capsule Medica l 140-125-125 Branch mg per capsule doxycycline 2021-04 Yes doxycyclin [facility] hyclate 100 -28 e hyclate ity of mg capsule 14:47: 100 mg [place] [address] capsule [facility] 2021-04 Yes [place] 140 [facility] ronidazole- 1-28 mg-125 ity of tetracyclin 14:47: mg-125 mg [place] (PYLERA) 17 capsule Medica l 140-125-125 Branch mg per capsule doxycycline 2021-04 Yes doxycyclin [facility] hyclate 100 05-11 e hyclate ity of mg capsule 14:47: 100 mg [place] [address] capsule [facility] 2021-04 Yes [place] 140 [facility] ronidazole- 1-28 mg-125 ity of tetracyclin 14:47: mg-125 mg [place] (PYLERA) 17 capsule Medica l 140-125-125 Branch mg per capsule doxycycline 2021-04 Yes doxycyclin [facility] hyclate 100 -28 e hyclate ity of mg capsule 14:47: 100 mg [place] [address] capsule [facility] 2021-04 Yes [place] 140 [facility] ronidazole- 1-28 mg-125 ity of tetracyclin 14:47: mg-125 mg [place] (PY[facility]ERA) 17 capsule Medica l 140-125-125 Branch mg per capsule doxycycline 2021-04 Yes doxycyclin [facility] hyclate 100 -28 e hyclate ity of mg capsule 14:47: 100 mg [place] [address] [facility] [place] 140 [facility] ronidazole- 1-28 mg-125 ity of tetracyclin 14:47: mg-125 mg [place] (PY[place]) 17 capsule Medica l 140-125-125 Branch mg per capsule doxycycline 2021-04 Yes doxycyclin [facility] hyclate 100 1-28 e hyclate ity of mg capsule 14:47: 100 mg [place] [address] [facility] bismuth-met 2021-04 Yes [place] 140 [facility] ronidazole- 1-28 mg-125 ity of tetracyclin 14:47: mg-125 mg [place] (PY[facility]) 17 capsule Medica l 140-125-125 Branch mg per capsule doxycycline 2021-04 Yes doxycyclin [facility] hyclate 100 1-28 e hyclate ity of mg capsule 14:47: 100 mg [place] [address] [facility] bismuth-met 2021-04 Yes [place] 140 [facility] ronidazole- 1-28 mg-125 ity of tetracyclin 14:47: mg-125 mg [place] (PYLERA) 17 capsule Medica l 140-125-125 Branch mg per capsule bismuth-met 2021-04 Yes [place] 140 [facility] ronidazole- 1-28 mg-125 ity of tetracyclin 14:47: mg-125 mg [place] (PY[facility]ERA) 17 capsule Medica l 140-125-125 Branch mg per capsule gabapentin 2021-04 Yes [id number] 100mg Take 1 [facility] 100 mg 1-28 capsule by ity of capsule 00:00: mouth in [address] and 1 capsule at noon and 1 capsule in the evening. gabapentin 2021-04 Yes [id number] 100mg Take 1 [facility] 100 mg 1-28 capsule by ity of capsule 00:00: mouth in [address] and 1 capsule at noon and 1 capsule in the evening. gabapentin 2021-04 Yes [id number] 100mg Take 1 [facility] 100 mg 1-28 capsule by ity of capsule 00:00: mouth in [address] and 1 capsule at noon and 1 capsule in the evening. gabapentin 2021-04 Yes [id number] 100mg Take 1 [facility] 100 mg 1-28 capsule by ity of capsule 00:00: mouth in [address] and 1 capsule at noon and 1 capsule in the evening. gabapentin 2021-04 Yes [id number] 100mg Take 1 [facility] 100 mg 1-28 capsule by ity of capsule 00:00: mouth in [address] and 1 capsule at noon and 1 capsule in the evening. gabapentin 2021- Yes [id number] 100mg Take 1 [facility] 100 mg 1-28 capsule by ity of capsule 00:00: mouth in [address] morning [place] and 1 capsule at noon and 1 capsule in the evening. gabapentin 2021- Yes [id number] 100mg Take 1 [facility] 100 mg 1-28 capsule by ity of capsule 00:00: mouth in [address] morning [place] and 1 capsule at noon and 1 capsule in the evening. gabapentin 2021- Yes [id number] 100mg Take 1 [facility] 100 mg 1-28 capsule by ity of capsule 00:00: mouth in [address] morning [place] and 1 capsule at noon and 1 capsule in the evening. gabapentin 2021- Yes [id number] 100mg Take 1 [facility] 100 mg 1-28 capsule by ity of capsule 00:00: mouth in [address] and 1 capsule at noon and 1 capsule in the evening. gabapentin 2021- Yes [id number] 100mg Take 1 [facility] 100 mg 1-28 capsule by ity of capsule 00:00: mouth in [address] and 1 capsule at noon and 1 capsule in the evening. gabapentin 2021- Yes [id number] 100mg Take 1 [facility] 100 mg 1-28 capsule by ity of capsule 00:00: mouth in [address] and 1 capsule at noon and 1 capsule in the evening. gabapentin 2021- Yes [id number] 100mg Take 1 [facility] 100 mg 1-28 capsule by ity of capsule 00:00: mouth in [address] and 1 capsule at noon and 1 capsule in the evening. gabapentin 2021- Yes [id number] 100mg Take 1 [facility] 100 mg 1-28 capsule by ity of capsule 00:00: mouth in [address] morning [place] and 1 capsule at noon and 1 capsule in the evening. gabapentin 202-1 Yes [id number] 100mg Take 1 [facility] 100 mg 1-28 capsule by ity of capsule 00:00: mouth in [address] and 1 capsule at noon and 1 capsule in the evening. gabapentin 2021-1 Yes [id number] 100mg Take 1 [facility] 100 mg 1-28 capsule by ity of capsule 00:00: mouth in [address] and 1 capsule at noon and 1 capsule in the evening. gabapentin 2021- Yes [id number] 100mg Take 1 [facility] 100 mg 1-28 capsule by ity of capsule 00:00: mouth in [address] morning [place] and 1 capsule at noon and 1 capsule in the evening. gabapentin 2021- Yes [id number] 100mg Take 1 [facility] 100 mg 1-28 capsule by ity of capsule 00:00: mouth in [address] morning [place] and 1 capsule at noon and 1 capsule in the evening. gabapentin 2021- Yes [id number] 100mg Take 1 [facility] 100 mg 1-28 capsule by ity of capsule 00:00: mouth in [address] morning [place] and 1 capsule at noon and 1 capsule in the evening. gabapentin 2021- Yes [id number] 100mg Take 1 [facility] 100 mg 1-28 capsule by ity of capsule 00:00: mouth in [address] and 1 capsule at noon and 1 capsule in the evening. gabapentin 2021- Yes [id number] 100mg Take 1 [facility] 100 mg 1-28 capsule by ity of capsule 00:00: mouth in [address] and 1 capsule at noon and 1 capsule in the evening. gabapentin 2021- Yes [id number] 100mg Take 1 [facility] 100 mg 1-28 capsule by ity of capsule 00:00: mouth in [address] and 1 capsule at noon and 1 capsule in the evening. gabapentin 2021- Yes [id number] 100mg Take 1 [facility] 100 mg 1-28 capsule by ity of capsule 00:00: mouth in [address] and 1 capsule at noon and 1 capsule in the evening. gabapentin 2021- Yes [id number] 100mg Take 1 [facility] 100 mg 1-28 capsule by ity of capsule 00:00: mouth in [address] morning [place] and 1 capsule at noon and 1 capsule in the evening. gabapentin 202-1 Yes [id number] 100mg Take 1 [facility] 100 mg 1-28 capsule by ity of capsule 00:00: mouth in [address] and 1 capsule at noon and 1 capsule in the evening. gabapentin 2021-1 Yes [id number] 100mg Take 1 [facility] 100 mg 1-28 capsule by ity of capsule 00:00: mouth in [address] and 1 capsule at noon and 1 capsule in the evening. gabapentin 2021- Yes [id number] 100mg Take 1 [facility] 100 mg 1-28 capsule by ity of capsule 00:00: mouth in [address] morning [place] and 1 capsule at noon and 1 capsule in the evening. gabapentin 2021- Yes [id number] 100mg Take 1 [facility] 100 mg 1-28 capsule by ity of capsule 00:00: mouth in [address] morning [place] and 1 capsule at noon and 1 capsule in the evening. gabapentin 2021- Yes [id number] 100mg Take 1 [facility] 100 mg 1-28 capsule by ity of capsule 00:00: mouth in [address] morning [place] and 1 capsule at noon and 1 capsule in the evening. gabapentin 2021- Yes [id number] 100mg Take 1 [facility] 100 mg 1-28 capsule by ity of capsule 00:00: mouth in [address] and 1 capsule at noon and 1 capsule in the evening. gabapentin 2021- Yes [id number] 100mg Take 1 [facility] 100 mg 1-28 capsule by ity of capsule 00:00: mouth in [address] and 1 capsule at noon and 1 capsule in the evening. gabapentin 2021- Yes [id number] 100mg Take 1 [facility] 100 mg 1-28 capsule by ity of capsule 00:00: mouth in [address] and 1 capsule at noon and 1 capsule in the evening. gabapentin 2021- Yes [id number] 100mg Take 1 [facility] 100 mg 1-28 capsule by ity of capsule 00:00: mouth in [address] and 1 capsule at noon and 1 capsule in the evening. gabapentin 2021- Yes [id number] 100mg Take 1 [facility] 100 mg 1-28 capsule by ity of capsule 00:00: mouth in [address] morning [place] and 1 capsule at noon and 1 capsule in the evening. gabapentin 202-1 Yes [id number] 100mg Take 1 [facility] 100 mg 1-28 capsule by ity of capsule 00:00: mouth in [address] and 1 capsule at noon and 1 capsule in the evening. gabapentin 2021-1 Yes [id number] 100mg Take 1 [facility] 100 mg 1-28 capsule by ity of capsule 00:00: mouth in [address] and 1 capsule at noon and 1 capsule in the evening. gabapentin 2021- Yes [id number] 100mg Take 1 [facility] 100 mg 1-28 capsule by ity of capsule 00:00: mouth in [address] morning [place] and 1 capsule at noon and 1 capsule in the evening. gabapentin 2021- Yes [id number] 100mg Take 1 [facility] 100 mg 1-28 capsule by ity of capsule 00:00: mouth in [address] morning [place] and 1 capsule at noon and 1 capsule in the evening. gabapentin 2021- Yes [id number] 100mg Take 1 [facility] 100 mg 1-28 capsule by ity of capsule 00:00: mouth in [address] morning [place] and 1 capsule at noon and 1 capsule in the evening. gabapentin 2021- Yes [id number] 100mg Take 1 [facility] 100 mg 1-28 capsule by ity of capsule 00:00: mouth in [address] and 1 capsule at noon and 1 capsule in the evening. gabapentin 2021- Yes [id number] 100mg Take 1 [facility] 100 mg 1-28 capsule by ity of capsule 00:00: mouth in [address] and 1 capsule at noon and 1 capsule in the evening. gabapentin 2021- Yes [id number] 100mg Take 1 [facility] 100 mg 1-28 capsule by ity of capsule 00:00: mouth in [address] and 1 capsule at noon and 1 capsule in the evening. gabapentin 2021- Yes [id number] 100mg Take 1 [facility] 100 mg 1-28 capsule by ity of capsule 00:00: mouth in [address] and 1 capsule at noon and 1 capsule in the evening. gabapentin 2021- Yes [id number] 100mg Take 1 [facility] 100 mg 1-28 capsule by ity of capsule 00:00: mouth in [address] morning [place] and 1 capsule at noon and 1 capsule in the evening. gabapentin 202-1 Yes [id number] 100mg Take 1 [facility] 100 mg 1-28 capsule by ity of capsule 00:00: mouth in [address] and 1 capsule at noon and 1 capsule in the evening. gabapentin 2021-1 Yes [id number] 100mg Take 1 [facility] 100 mg 1-28 capsule by ity of capsule 00:00: mouth in [address] and 1 capsule at noon and 1 capsule in the evening. gabapentin 2021- Yes [id number] 100mg Take 1 [facility] 100 mg 1-28 capsule by ity of capsule 00:00: mouth in [address] morning [place] and 1 capsule at noon and 1 capsule in the evening. gabapentin 2021- Yes [id number] 100mg Take 1 [facility] 100 mg 1-28 capsule by ity of capsule 00:00: mouth in [address] morning [place] and 1 capsule at noon and 1 capsule in the evening. gabapentin 2021- Yes [id number] 100mg Take 1 [facility] 100 mg 1-28 capsule by ity of capsule 00:00: mouth in [address] morning [place] and 1 capsule at noon and 1 capsule in the evening. gabapentin 2021- Yes [id number] 100mg Take 1 [facility] 100 mg 1-28 capsule by ity of capsule 00:00: mouth in [address] and 1 capsule at noon and 1 capsule in the evening. gabapentin 2021- Yes [id number] 100mg Take 1 [facility] 100 mg 1-28 capsule by ity of capsule 00:00: mouth in [address] and 1 capsule at noon and 1 capsule in the evening. gabapentin 2021- Yes [id number] 100mg Take 1 [facility] 100 mg 1-28 capsule by ity of capsule 00:00: mouth in [address] and 1 capsule at noon and 1 capsule in the evening. gabapentin 2021- Yes [id number] 100mg Take 1 [facility] 100 mg 1-28 capsule by ity of capsule 00:00: mouth in [address] and 1 capsule at noon and 1 capsule in the evening. gabapentin 2021- Yes [id number] 100mg Take 1 [facility] 100 mg 1-28 capsule by ity of capsule 00:00: mouth in [address] morning [place] and 1 capsule at noon and 1 capsule in the evening. gabapentin 202-1 Yes [id number] 100mg Take 1 [facility] 100 mg 1-28 capsule by ity of capsule 00:00: mouth in [address] and 1 capsule at noon and 1 capsule in the evening. gabapentin 2021-1 Yes [id number] 100mg Take 1 [facility] 100 mg 1-28 capsule by ity of capsule 00:00: mouth in [address] and 1 capsule at noon and 1 capsule in the evening. gabapentin 2021-04 Yes [id number] 100mg Take 1 [facility] 100 mg 1-28 capsule by ity of capsule 00:00: mouth in [address] morning [place] and 1 capsule at noon and 1 capsule in the evening. gabapentin 2021-04 Yes [id number] 100mg Take 1 [facility] 100 mg 1-28 capsule by ity of capsule 00:00: mouth in [address] morning [place] and 1 capsule at noon and 1 capsule in the evening. gabapentin 2021-04 Yes [id number] 100mg Take 1 [facility] 100 mg 1-28 capsule by ity of capsule 00:00: mouth in [address] morning [place] and 1 capsule at noon and 1 capsule in the evening. gabapentin 2021-04 Yes [id number] 100mg Take 1 [facility] 100 mg 1-28 capsule by ity of capsule 00:00: mouth in [address] morning [place] and 1 capsule at noon and 1 capsule in the evening. gabapentin 2021-04 Yes [id number] 100mg Take 1 [facility] 100 mg 1-28 capsule by ity of capsule 00:00: mouth in [address] morning [place] and 1 capsule at noon and 1 capsule in the evening. gabapentin 2021-04 Yes [id number] 100mg Take 1 [facility] 100 mg 1-28 capsule by ity of capsule 00:00: mouth in [address] and 1 capsule at noon and 1 capsule in the evening. gabapentin 2021-04 Yes [id number] 100mg Take 1 [facility] 100 mg 1-28 capsule by ity of capsule 00:00: mouth in [address] morning [place] and 1 capsule at noon and 1 capsule in the evening. gabapentin 2021-04 Yes [id number] 100mg Take 1 [facility] 100 mg 1-28 capsule by ity of capsule 00:00: mouth in [address] morning [place] and 1 capsule at noon and 1 capsule in the evening. benzonatate 2021-04- No [id number] 200mg Take 1 [facility] 200 mg 1-03 11-14 capsule by ity of capsule 00:00: 05:59 mouth 3 [place] 00 :00 (three) Medical times Branch daily as needed for Cough for up to 10 days. methylPREDN 2021- Yes [id number] Take by Univers ISolone 0-27 mouth ity of (MEDROL, 00:00: SEE-INSTRU [place] as STEVEN,) 4 mg 00 CTIONS. Medica l tablets follow Branch package directions methylPREDN 2021-1 Yes [id number] Take by [facility] ISolone 0-27 mouth ity of (MEDROL, 00:00: SEE-INSTRU [place] as [place],) 4 mg 00 CTIONS. Medica l tablets follow Branch package directions methylPREDN 2021- Yes [id number] Take by [facility] ISolone 0-27 mouth ity of (MEDROL, 00:00: SEE-INSTRU [place],) 4 mg 00 CTIONS. Medica l tablets follow Branch package directions methylPREDN 2021- Yes [id number] Take by [facility] ISolone 0-27 mouth ity of (MEDROL, 00:00: SEE-INSTRU [place] as [place],) 4 mg 00 CTIONS. Medica l tablets follow Branch package directions methylPREDN 2021- Yes [id number] Take by [facility] ISolone 0-27 mouth ity of (MEDROL, 00:00: SEE-INSTRU [place],) 4 mg 00 CTIONS. Medica l tablets follow Branch package directions methylPREDN 2021- Yes [id number] Take by [facility] ISolone 0-27 mouth ity of (MEDROL, 00:00: SEE-INSTRU [place] as [place],) 4 mg 00 CTIONS. Medica l tablets follow Branch package directions methylPREDN 2021-1 Yes [id number] Take by [facility] ISolone 0-27 mouth ity of (MEDROL, 00:00: SEE-INSTRU [place] as [place],) 4 mg 00 CTIONS. Medica l tablets follow Branch package directions methylPREDN 2021-1 Yes [id number] Take by [facility] ISolone 0-27 mouth ity of (MEDROL, 00:00: SEE-INSTRU [place],) 4 mg 00 CTIONS. Medica l tablets follow Branch package directions methylPREDN 2021-1 Yes [id number] Take by [facility] ISolone 0-27 mouth ity of (MEDROL, 00:00: SEE-INSTRU [place],) 4 mg 00 CTIONS. Medica l tablets follow Branch package directions methylPREDN 2021-1 Yes [id number] Take by [facility] ISolone 0-27 mouth ity of (MEDROL, 00:00: SEE-INSTRU [place],) 4 mg 00 CTIONS. Medica l tablets follow Branch package directions methylPREDN 2021-1 Yes [id number] Take by [facility] ISolone 0-27 mouth ity of (MEDROL, 00:00: SEE-INSTRU [place] as [place],) 4 mg 00 CTIONS. Medica l tablets follow Branch package directions methylPREDN 2021-1 Yes [id number] Take by [facility] ISolone 0-27 mouth ity of (MEDROL, 00:00: SEE-INSTRU [place],) 4 mg 00 CTIONS. Medica l tablets follow Branch package directions methylPREDN 2021-1 Yes [id number] Take by [facility] ISolone 0-27 mouth ity of (MEDROL, 00:00: SEE-INSTRU [place] as [place],) 4 mg 00 CTIONS. Medica l tablets follow Branch package directions methylPREDN 2021-1 Yes [id number] Take by [facility] ISolone 0-27 mouth ity of (MEDROL, 00:00: SEE-INSTRU [place] as [place],) 4 mg 00 CTIONS. Medica l tablets follow Branch package directions methylPREDN 2021- Yes [id number] Take by [facility] ISolone 0-27 mouth ity of (MEDROL, 00:00: SEE-INSTRU [place] as [place],) 4 mg 00 CTIONS. Medica l tablets follow Branch package directions methylPREDN 2021-1 Yes [id number] Take by [facility] ISolone 0-27 mouth ity of (MEDROL, 00:00: SEE-INSTRU [place] as [place],) 4 mg 00 CTIONS. Medica l tablets follow Branch package directions methylPREDN 2021-1 Yes [id number] Take by [facility] ISolone 0-27 mouth ity of (MEDROL, 00:00: SEE-INSTRU [place] as [place],) 4 mg 00 CTIONS. Medica l tablets follow Branch package directions methylPREDN 2021-1 Yes [id number] Take by [facility] ISolone 0-27 mouth ity of (MEDROL, 00:00: SEE-INSTRU [place] as [place],) 4 mg 00 CTIONS. Medica l tablets follow Branch package directions methylPREDN 2021-1 Yes [id number] Take by [facility] ISolone 0-27 mouth ity of (MEDROL, 00:00: SEE-INSTRU [place] as [place],) 4 mg 00 CTIONS. Medica l tablets follow Branch package directions methylPREDN 2021- Yes [id number] Take by [facility] ISolone 0-27 mouth ity of (MEDROL, 00:00: SEE-INSTRU [place] as [place]EV[place],) 4 mg 00 CTIONS. Medica l tablets follow Branch package directions methylPREDN 2021- Yes [id number] Take by [facility] ISolone 0-27 mouth ity of (MEDROL, 00:00: SEE-INSTRU [place] as [place],) 4 mg 00 CTIONS. Medica l tablets follow Branch package directions methylPREDN 2021-04 Yes [id number] Take by [facility] ISolone 0-27 mouth ity of (MEDROL, 00:00: SEE-INSTRU [place] as [place],) 4 mg 00 CTIONS. Medica l tablets follow Branch package directions methylPREDN 2021-04 Yes [id number] Take by [facility] ISolone 0-27 mouth ity of (MEDROL, 00:00: SEE-INSTRU [place] as [place],) 4 mg 00 CTIONS. Medica l tablets follow Branch package directions methylPREDN 2021- Yes [id number] Take by [facility] ISolone 0-27 mouth ity of (MEDROL, 00:00: SEE-INSTRU [place] as [place],) 4 mg 00 CTIONS. Medica l tablets follow Branch package directions methylPREDN 2021- Yes [id number] Take by [facility] ISolone 0-27 mouth ity of (MEDROL, 00:00: SEE-INSTRU [place] as [place],) 4 mg 00 CTIONS. Medica l tablets follow Branch package directions methylPREDN 2021- Yes [id number] Take by [facility] ISolone 0-27 mouth ity of (MEDROL, 00:00: SEE-INSTRU [place] as [place],) 4 mg 00 CTIONS. Medica l tablets follow Branch package directions methylPREDN 2021- Yes [id number] Take by [facility] ISolone 0-27 mouth ity of (MEDROL, 00:00: SEE-INSTRU [place] as [place],) 4 mg 00 CTIONS. Medica l tablets follow Branch package directions methylPREDN 2021-1 Yes [id number] Take by [facility] ISolone 0-27 mouth ity of (MEDROL, 00:00: SEE-INSTRU [place] as [place],) 4 mg 00 CTIONS. Medica l tablets follow Branch package directions methylPREDN 2021- Yes [id number] Take by [facility] ISolone 0-27 mouth ity of (MEDROL, 00:00: SEE-INSTRU [place]ef[place] as [place],) 4 mg 00 CTIONS. Medica l tablets follow Branch package directions methylPREDN 2021-04 Yes [id number] Take by [facility] ISolone 0-27 mouth ity of (MEDROL, 00:00: SEE-INSTRU [place]ef[place] as [place],) 4 mg 00 CTIONS. Medica l tablets follow Branch package directions methylPREDN 2021-04 Yes [id number] Take by [facility] ISolone 0-27 mouth ity of (MEDROL, 00:00: SEE-INSTRU [place] as [place],) 4 mg 00 CTIONS. Medica l tablets follow Branch package directions methylPREDN 2021-04 Yes [id number] Take by [facility] ISolone 0-27 mouth ity of (MEDROL, 00:00: SEE-INSTRU Jefry as STEVEN,) 4 mg 00 CTIONS. Medica l tablets follow Branch package directions methylPREDN 2021-04 Yes [id number] Take by [facility] ISolone 0-27 mouth ity of (MEDROL, 00:00: SEE-INSTRU [place] ST[place],) 4 mg 00 CTIONS. Medica l tablets follow Branch package directions methylPREDN 2021-04 Yes [id number] Take by [facility] ISolone 0-27 mouth ity of (MEDROL, 00:00: SEE-INSTRU [place] STEVEN,) 4 mg 00 CTIONS. Medica l tablets follow Branch package directions methylPREDN 2021-04 Yes [id number] Take by [facility] ISolone 0-27 mouth ity of (MEDROL, 00:00: SEE-INSTRU [place]EVEN,) 4 mg 00 CTIONS. Medica l tablets follow Branch package directions methylPREDN 2021-04 Yes [id number] Take by [facility] ISolone 0-27 mouth ity of (MEDROL, 00:00: SEE-INSTRU [place],) 4 mg 00 CTIONS. Medica l tablets follow Branch package directions methylPREDN 2021-04 Yes [id number] Take by [facility] ISolone 0-27 mouth ity of (MEDROL, 00:00: SEE-INSTRU [place],) 4 mg 00 CTIONS. Medica l tablets follow Branch package directions methylPREDN 2021-04 2023- No [id number] Take by [facility] ISolone 0-27 02-18 mouth ity of (MEDROL, 00:00: 00:00 SEE-INSTRU [place] STEVEN,) 4 mg 00 :00 CTIONS. Medica l tablets follow Branch package directions azithromyci 2021-04 Yes [id number] [facility] = [facility] n 0-25 500 mg day ity of (ZITHROMAX 00:00[place] [facility] 250 00 250 mg Medical mg tablet days 2 to Branc h 5. Z-Steven = 500mg day 1, then 250mg days 2 to 5. fluticasone 2021-04 Yes [id number] 1{spray Use 1 [facility] propionate 0-25 } [place] in ity o f 50 00:00: each [place] mcg/actuati 00 nostril in Me dical on nasal the Branch spray morning. azelastine 2021-04 Yes [id number] 1{spray Use 1 [facility] 137 mcg 0-25 } [place] in ity of (0.1 %) 00:00: each [place] nasal spray 00 nostril in Me dical the Branch morning and 1 [place] in the evening. Use in each nostril as directed guaiFENesin 2021-04 Yes [id number] 400mg Take 1 [facility] 400 mg 0-25 tablet by ity of tablet 00:00: mouth [place] 00 every 4 Medical (four) Branch hours as needed for Cough. azithromyci 2021-04 Yes [id number] [facility] = [facility] n 0-25 500 mg day ity of (ZITHROMAX 00:00: [place] [facility]EV[facility] 250 00 250 mg Medical mg tablet days 2 to Branc h 5. Z-Steven = 500mg day 1, then 250mg days 2 to 5. fluticasone 2021-04 Yes [id number] 1{spray Use 1 [facility] propionate 0-25 } [place] in ity o f 50 00:00: each [place] mcg/actuati 00 nostril in Me dical on nasal the Branch spray morning. azelastine 2021-04 Yes [id number] 1{spray Use 1 [facility] 137 mcg 0-25 } [place] in ity of (0.1 %) 00:00: each [place] nasal spray 00 nostril in Me dical the Branch morning and 1 [place] in the evening. Use in each nostril as directed guaiFENesin 2021-04 Yes [id number] 400mg Take 1 [facility] 400 mg 0-25 tablet by ity of tablet 00:00: mouth [place] 00 every 4 Medical (four) Branch hours as needed for Cough. azithromyci 2021-04 Yes [id number] [facility] = [facility] n 0-25 500 mg day ity of (ZITHROMAX 00:00: [place] [facility]EV[facility] 250 00 250 mg Medical mg tablet days 2 to Branc h 5. Z-Steven = 500mg day 1, then 250mg days 2 to 5. fluticasone 2021-04 Yes [id number] 1{spray Use 1 [facility] propionate 0-25 } [place] in ity o f 50 00:00: each [place] mcg/actuati 00 nostril in Me dical on nasal the Branch spray morning. azelastine 2021-04 Yes [id number] 1{spray Use 1 [facility] 137 mcg 0-25 } [place] in ity of (0.1 %) 00:00: each [place] nasal spray 00 nostril in Me dical the Branch morning and 1 [place] in the evening. Use in each nostril as directed guaiFENesin 2021-04 Yes [id number] 400mg Take 1 [facility] 400 mg 0-25 tablet by ity of tablet 00:00: mouth [place] 00 every 4 Medical (four) Branch hours as needed for Cough. azithromyci 2021-04 Yes [id number] [facility] = [facility] n 0-25 500 mg day ity of (ZITHROMAX 00:00: [place] [facility]-STEV[facility] 250 00 250 mg Medical mg tablet days 2 to Branc h 5. Z-Steven = 500mg day 1, then 250mg days 2 to 5. fluticasone 2021-04 Yes [id number] 1{spray Use 1 [facility] propionate 0-25 } [place] in ity o f 50 00:00: each [place] mcg/actuati 00 nostril in Me dical on nasal the Branch spray morning. azelastine 2021-04 Yes [id number] 1{spray Use 1 [facility] 137 mcg 0-25 } [place] in ity of (0.1 %) 00:00: each [place] nasal spray 00 nostril in Me dical the Branch morning and 1 [place] in the evening. Use in each nostril as directed guaiFENesin 2021-04 Yes [id number] 400mg Take 1 [facility] 400 mg 0-25 tablet by ity of tablet 00:00: mouth [place] 00 every 4 Medical (four) Branch hours as needed for Cough. azithromyci 2021-04 Yes [id number] [facility] = [facility] n 0-25 500 mg day ity of (ZITHROMAX 00:00: [place], [place] [facility]-STEVEN[place] 250 00 250 mg Medical mg tablet days 2 to Branc h 5. Z-[facility] = 500mg day 1, then 250mg days 2 to 5. fluticasone 2021-04 Yes [id number] 1{spray Use 1 [facility] propionate 0-25 } [place] in ity o f 50 00:00: each [place] mcg/actuati 00 nostril in Me dical on nasal the Branch spray morning. azelastine 2021-04 Yes [id number] 1{spray Use 1 [facility] 137 mcg 0-25 } [place] in ity of (0.1 %) 00:00: each [place] nasal spray 00 nostril in Me dical the Branch morning and 1 [place] in the evening. Use in each nostril as directed guaiFENesin 2021-04 Yes [id number] 400mg Take 1 [facility] 400 mg 0-25 tablet by ity of tablet 00:00: mouth [place] 00 every 4 Medical (four) Branch hours as needed for Cough. azithromyci 2021-04 Yes [id number] [facility] = [facility] n 0-25 500 mg day ity of (ZITHROMAX 00:00: [place], [place] Z-STEVEN[place] 250 00 250 mg Medical mg tablet days 2 to Branc h 5. Z-[facility] = 500mg day 1, then 250mg days 2 to 5. fluticasone 2021-04 Yes [id number] 1{spray Use 1 [facility] propionate 0-25 } [place] in ity o f 50 00:00: each [place] mcg/actuati 00 nostril in Me dical on nasal the Branch spray morning. azelastine 2021-04 Yes [id number] 1{spray Use 1 [facility] 137 mcg 0-25 } [place] in ity of (0.1 %) 00:00: each [place] nasal spray 00 nostril in Me dical the Branch morning and 1 [place] in the evening. Use in each nostril as directed guaiFENesin 2021-04 Yes [id number] 400mg Take 1 [facility] 400 mg 0-25 tablet by ity of tablet 00:00: mouth [place] 00 every 4 Medical (four) Branch hours as needed for Cough. azithromyci 2021-04 Yes [id number] [facility] = [facility] n 0-25 500 mg day ity of (ZITHROMAX 00:00: [place], [place] [facility]-STEVEN[place] 250 00 250 mg Medical mg tablet days 2 to Branc h 5. Z-[facility] = 500mg day 1, then 250mg days 2 to 5. fluticasone 2021-04 Yes [id number] 1{spray Use 1 [facility] propionate 0-25 } [place] in ity o f 50 00:00: each [place] mcg/actuati 00 nostril in Me dical on nasal the Branch spray morning. azelastine 2021-04 Yes [id number] 1{spray Use 1 [facility] 137 mcg 0-25 } [place] in ity of (0.1 %) 00:00: each [place] nasal spray 00 nostril in Me dical the Branch morning and 1 [place] in the evening. Use in each nostril as directed guaiFENesin 2021-04 Yes [id number] 400mg Take 1 [facility] 400 mg 0-25 tablet by ity of tablet 00:00: mouth [place] 00 every 4 Medical (four) Branch hours as needed for Cough. azithromyci 2021-04 Yes [id number] [facility] = [facility] n 0-25 500 mg day ity of (ZITHROMAX 00:00: 1, [place] [facility]-STEVEN[place] 250 00 250 mg Medical mg tablet days 2 to Branc h 5. Z-Steven = 500mg day 1, then 250mg days 2 to 5. fluticasone 2021-04 Yes [id number] 1{spray Use 1 [facility] propionate 0-25 } [place] in ity o f 50 00:00: each [place] mcg/actuati 00 nostril in Me dical on nasal the Branch spray morning. azelastine 2021-04 Yes [id number] 1{spray Use 1 [facility] 137 mcg 0-25 } [place] in ity of (0.1 %) 00:00: each [place] nasal spray 00 nostril in Me dical the Branch morning and 1 [place] in the evening. Use in each nostril as directed guaiFENesin 2021-04 Yes [id number] 400mg Take 1 [facility] 400 mg 0-25 tablet by ity of tablet 00:00: mouth [place] 00 every 4 Medical (four) Branch hours as needed for Cough. azithromyci 2021-04 Yes [id number] [facility] = [facility] n 0-25 500 mg day ity of (ZITHROMAX 00:00: [place], [place] [facility]-STEVEN[place] 250 00 250 mg Medical mg tablet days 2 to Branc h 5. [facility] = 500mg day 1, then 250mg days 2 to 5. fluticasone 2021-04 Yes [id number] 1{spray Use 1 [facility] propionate 0-25 } [place] in ity o f 50 00:00: each [place] mcg/actuati 00 nostril in Me dical on nasal the Branch spray morning. azelastine 2021-04 Yes [id number] 1{spray Use 1 [facility] 137 mcg 0-25 } [place] in ity of (0.1 %) 00:00: each [place] nasal spray 00 nostril in Me dical the Branch morning and 1 [place] in the evening. Use in each nostril as directed guaiFENesin 2021-04 Yes [id number] 400mg Take 1 [facility] 400 mg 0-25 tablet by ity of tablet 00:00: mouth [place] 00 every 4 Medical (four) Branch hours as needed for Cough. azithromyci 2021-04 Yes [id number] [facility] = [facility] n 0-25 500 mg day ity of (ZITHROMAX 00:00: [place], [place] [facility]-STEVEN[place] 250 00 250 mg Medical mg tablet days 2 to Branc h 5. Z-Steven = 500mg day 1, then 250mg days 2 to 5. fluticasone 2021-04 Yes [id number] 1{spray Use 1 [facility] propionate 0-25 } [place] in ity o f 50 00:00: each [place] mcg/actuati 00 nostril in Me dical on nasal the Branch spray morning. azelastine 2021-04 Yes [id number] 1{spray Use 1 [facility] 137 mcg 0-25 } [place] in ity of (0.1 %) 00:00: each [place] nasal spray 00 nostril in Me dical the Branch morning and 1 [place] in the evening. Use in each nostril as directed guaiFENesin 2021-04 Yes [id number] 400mg Take 1 [facility] 400 mg 0-25 tablet by ity of tablet 00:00: mouth [place] 00 every 4 Medical (four) Branch hours as needed for Cough. azithromyci 2021-04 Yes [id number] [facility] = [facility] n 0-25 500 mg day ity of (ZITHROMAX 00:00: [place], [place] [facility]-STEVEN) 250 00 250 mg Medical mg tablet days 2 to Branc h 5. [facility] = 500mg day 1, then 250mg days 2 to 5. fluticasone 2021-04 Yes [id number] 1{spray Use 1 [facility] propionate 0-25 } [place] in ity o f 50 00:00: each [place] mcg/actuati 00 nostril in Me dical on nasal the Branch spray morning. azelastine 2021-04 Yes [id number] 1{spray Use 1 [facility] 137 mcg 0-25 } [place] in ity of (0.1 %) 00:00: each [place] nasal spray 00 nostril in Me dical the Branch morning and 1 [place] in the evening. Use in each nostril as directed guaiFENesin 2021-04 Yes [id number] 400mg Take 1 [facility] 400 mg 0-25 tablet by ity of tablet 00:00: mouth [place] 00 every 4 Medical (four) Branch hours as needed for Cough. azithromyci 2021-04 Yes [id number] [facility] = [facility] n 0-25 500 mg day ity of (ZITHROMAX 00:00: 1, [place] [facility]-STEVEN) 250 00 250 mg Medical mg tablet days 2 to Branc h 5. [facility] = 500mg day 1, then 250mg days 2 to 5. fluticasone 2021-04 Yes [id number] 1{spray Use 1 [facility] propionate 0-25 } [place] in ity o f 50 00:00: each [place] mcg/actuati 00 nostril in Me dical on nasal the Branch spray morning. azelastine 2021-04 Yes [id number] 1{spray Use 1 [facility] 137 mcg 0-25 } [place] in ity of (0.1 %) 00:00: each [place] nasal spray 00 nostril in Me dical the Branch morning and 1 [place] in the evening. Use in each nostril as directed guaiFENesin 2021-04 Yes [id number] 400mg Take 1 [facility] 400 mg 0-25 tablet by ity of tablet 00:00: mouth [place] 00 every 4 Medical (four) Branch hours as needed for Cough. azithromyci 2021-04 Yes [id number] Z-[facility] = [facility] n 0-25 500 mg day ity of (ZITHROMAX 00:00: 1, [place] Z-STEVEN) 250 00 250 mg Medical mg tablet days 2 to Branc h 5. Z-Steven = 500mg day 1, then 250mg days 2 to 5. fluticasone 2021-04 Yes [id number] 1{spray Use 1 [facility] propionate 0-25 } [place] in ity o f 50 00:00: each [place] mcg/actuati 00 nostril in Me dical on nasal the Branch spray morning. azelastine 2021-04 Yes [id number] 1{spray Use 1 [facility] 137 mcg 0-25 } [place] in ity of (0.1 %) 00:00: each [place] nasal spray 00 nostril in Me dical the Branch morning and 1 [place] in the evening. Use in each nostril as directed guaiFENesin 2021-04 Yes [id number] 400mg Take 1 [facility] 400 mg 0-25 tablet by ity of tablet 00:00: mouth [place] 00 every 4 Medical (four) Branch hours as needed for Cough. azithromyci 2021-04 Yes [id number] Z-[facility] = [facility] n 0-25 500 mg day ity of (ZITHROMAX 00:00: 1, [place] Z-STEVEN) 250 00 250 mg Medical mg tablet days 2 to Branc h 5. Z-[facility] = 500mg day 1, then 250mg days 2 to 5. fluticasone 2021-04 Yes [id number] 1{spray Use 1 [facility] propionate 0-25 } [place] in ity o f 50 00:00: each [place] mcg/actuati 00 nostril in Me dical on nasal the Branch spray morning. azelastine 2021-04 Yes [id number] 1{spray Use 1 [facility] 137 mcg 0-25 } [place] in ity of (0.1 %) 00:00: each [place] nasal spray 00 nostril in Me dical the Branch morning and 1 [place] in the evening. Use in each nostril as directed guaiFENesin 2021-04 Yes [id number] 400mg Take 1 [facility] 400 mg 0-25 tablet by ity of tablet 00:00: mouth [place] 00 every 4 Medical (four) Branch hours as needed for Cough. azithromyci 2021-04 Yes [id number] Z-[facility] = [facility] n 0-25 500 mg day ity of (ZITHROMAX 00:00: 1, [place] Z-STEVEN) 250 00 250 mg Medical mg tablet days 2 to Branc h 5. Z-[facility] = 500mg day 1, then 250mg days 2 to 5. fluticasone 2021-04 Yes [id number] 1{spray Use 1 [facility] propionate 0-25 } [place] in ity o f 50 00:00: each [place] mcg/actuati 00 nostril in Me dical on nasal the Branch spray morning. azelastine 2021-04 Yes [id number] 1{spray Use 1 [facility] 137 mcg 0-25 } [place] in ity of (0.1 %) 00:00: each [place] nasal spray 00 nostril in Me dical the Branch morning and 1 [place] in the evening. Use in each nostril as directed guaiFENesin 2021-04 Yes [id number] 400mg Take 1 [facility] 400 mg 0-25 tablet by ity of tablet 00:00: mouth [place] 00 every 4 Medical (four) Branch hours as needed for Cough. azithromyci 2021-04 Yes [id number] Z-[facility] = [facility] n 0-25 500 mg day ity of (ZITHROMAX 00:00: 1, [place] Z-STEVEN) 250 00 250 mg Medical mg tablet days 2 to Branc h 5. Z-Steven = 500mg day 1, then 250mg days 2 to 5. fluticasone 2021-04 Yes [id number] 1{spray Use 1 [facility] propionate 0-25 } [place] in ity o f 50 00:00: each [place] mcg/actuati 00 nostril in Me dical on nasal the Branch spray morning. azelastine 2021-04 Yes [id number] 1{spray Use 1 [facility] 137 mcg 0-25 } [place] in ity of (0.1 %) 00:00: each [place] nasal spray 00 nostril in Me dical the Branch morning and 1 [place] in the evening. Use in each nostril as directed guaiFENesin 2021-04 Yes [id number] 400mg Take 1 [facility] 400 mg 0-25 tablet by ity of tablet 00:00: mouth [place] 00 every 4 Medical (four) Branch hours as needed for Cough. azithromyci 2021-04 Yes [id number] Z-Steven = [facility] n 0-25 500 mg day ity of (ZITHROMAX 00:00: 1, [place] [facility]-STEVEN) 250 00 250 mg Medical mg tablet days 2 to Branc h 5. Z-Steven = 500mg day 1, then 250mg days 2 to 5. fluticasone 2021-04 Yes [id number] 1{spray Use 1 [facility] propionate 0-25 } [place] in ity o f 50 00:00: each [place] mcg/actuati 00 nostril in Me dical on nasal the Branch spray morning. azelastine 2021-04 Yes [id number] 1{spray Use 1 [facility] 137 mcg 0-25 } [place] in ity of (0.1 %) 00:00: each [place] nasal spray 00 nostril in Me dical the Branch morning and 1 [place] in the evening. Use in each nostril as directed guaiFENesin 2021-04 Yes [id number] 400mg Take 1 [facility] 400 mg 0-25 tablet by ity of tablet 00:00: mouth [place] 00 every 4 Medical (four) Branch hours as needed for Cough. azithromyci 2021-04 Yes [id number] Z-[facility] = [facility] n 0-25 500 mg day ity of (ZITHROMAX 00:00: 1, [place] Z-STEVEN) 250 00 250 mg Medical mg tablet days 2 to Branc h 5. Z-Steven = 500mg day 1, then 250mg days 2 to 5. fluticasone 2021-04 Yes [id number] 1{spray Use 1 [facility] propionate 0-25 } [place] in ity o f 50 00:00: each [place] mcg/actuati 00 nostril in Me dical on nasal the Branch spray morning. azelastine 2021-04 Yes [id number] 1{spray Use 1 [facility] 137 mcg 0-25 } [place] in ity of (0.1 %) 00:00: each [place] nasal spray 00 nostril in Me dical the Branch morning and 1 [place] in the evening. Use in each nostril as directed guaiFENesin 2021-04 Yes [id number] 400mg Take 1 [facility] 400 mg 0-25 tablet by ity of tablet 00:00: mouth [place] 00 every 4 Medical (four) Branch hours as needed for Cough. azithromyci 2021-04 Yes [id number] Z-[facility] = [facility] n 0-25 500 mg day ity of (ZITHROMAX 00:00: 1, then [place] Z-STEVEN) 250 00 250 mg Medical mg tablet days 2 to Branc h 5. Z-Steven = 500mg day 1, then 250mg days 2 to 5. fluticasone 2021-04 Yes [id number] 1{spray Use 1 [facility] propionate 0-25 } [place] in ity o f 50 00:00: each [place] mcg/actuati 00 nostril in Me dical on nasal the Branch spray morning. azelastine 2021-04 Yes [id number] 1{spray Use 1 [facility] 137 mcg 0-25 } [place] in ity of (0.1 %) 00:00: each [place] nasal spray 00 nostril in Me dical the Branch morning and 1 [place] in the evening. Use in each nostril as directed guaiFENesin 2021-04 Yes [id number] 400mg Take 1 [facility] 400 mg 0-25 tablet by ity of tablet 00:00: mouth [place] 00 every 4 Medical (four) Branch hours as needed for Cough. azithromyci 2021-04 Yes [id number] Z-[facility] = [facility] n 0-25 500 mg day ity of (ZITHROMAX 00:00: 1, then [place] Z-STEVEN) 250 00 250 mg Medical mg tablet days 2 to Branc h 5. Z-Steven = 500mg day 1, then 250mg days 2 to 5. fluticasone 2021-04 Yes [id number] 1{spray Use 1 [facility] propionate 0-25 } [place] in ity o f 50 00:00: each [place] mcg/actuati 00 nostril in Me dical on nasal the Branch spray morning. azelastine 2021-04 Yes [id number] 1{spray Use 1 [facility] 137 mcg 0-25 } [place] in ity of (0.1 %) 00:00: each [place] nasal spray 00 nostril in Me dical the Branch morning and 1 [place] in the evening. Use in each nostril as directed guaiFENesin 2021-04 Yes [id number] 400mg Take 1 [facility] 400 mg 0-25 tablet by ity of tablet 00:00: mouth [place] 00 every 4 Medical (four) Branch hours as needed for Cough. azithromyci 2021-04 Yes [id number] Z-[facility] = [facility] n 0-25 500 mg day ity of (ZITHROMAX 00:00: 1, then [place] Z-STEVEN) 250 00 250 mg Medical mg tablet days 2 to Branc h 5. Z-Steven = 500mg day 1, then 250mg days 2 to 5. fluticasone 2021-04 Yes [id number] 1{spray Use 1 [facility] propionate 0-25 } [place] in ity o f 50 00:00: each [place] mcg/actuati 00 nostril in Me dical on nasal the Branch spray morning. azelastine 2021-04 Yes [id number] 1{spray Use 1 [facility] 137 mcg 0-25 } [place] in ity of (0.1 %) 00:00: each [place] nasal spray 00 nostril in Me dical the Branch morning and 1 [place] in the evening. Use in each nostril as directed guaiFENesin 2021-04 Yes [id number] 400mg Take 1 [facility] 400 mg 0-25 tablet by ity of tablet 00:00: mouth [place] 00 every 4 Medical (four) Branch hours as needed for Cough. azithromyci 2021-04 Yes [id number] Z-[facility] = [facility] n 0-25 500 mg day ity of (ZITHROMAX 00:00: 1, then [place] Z-STEVEN) 250 00 250 mg Medical mg tablet days 2 to Branc h 5. Z-Steven = 500mg day 1, then 250mg days 2 to 5. fluticasone 2021-04 Yes [id number] 1{spray Use 1 [facility] propionate 0-25 } [place] in ity o f 50 00:00: each [place] mcg/actuati 00 nostril in Me dical on nasal the Branch spray morning. azelastine 2021-04 Yes [id number] 1{spray Use 1 [facility] 137 mcg 0-25 } [place] in ity of (0.1 %) 00:00: each [place] nasal spray 00 nostril in Me dical the Branch morning and 1 [place] in the evening. Use in each nostril as directed guaiFENesin 2021-04 Yes [id number] 400mg Take 1 [facility] 400 mg 0-25 tablet by ity of tablet 00:00: mouth [place] 00 every 4 Medical (four) Branch hours as needed for Cough. azithromyci 2021-04 Yes [id number] [facility] = [facility] n 0-25 500 mg day ity of (ZITHROMAX 00:00: 1, then [place] Z-STEVEN) 250 00 250 mg Medical mg tablet days 2 to Branc h 5. Z-Steven = 500mg day 1, then 250mg days 2 to 5. fluticasone 2021-04 Yes [id number] 1{spray Use 1 [facility] propionate 0-25 } [place] in ity o f 50 00:00: each [place] mcg/actuati 00 nostril in Me dical on nasal the Branch spray morning. azelastine 2021-04 Yes [id number] 1{spray Use 1 [facility] 137 mcg 0-25 } [place] in ity of (0.1 %) 00:00: each [place] nasal spray 00 nostril in Me dical the Branch morning and 1 [place] in the evening. Use in each nostril as directed guaiFENesin 2021-04 Yes [id number] 400mg Take 1 [facility] 400 mg 0-25 tablet by ity of tablet 00:00: mouth [place] 00 every 4 Medical (four) Branch hours as needed for Cough. azithromyci 2021-04 Yes [id number] [facility] = [facility] n 0-25 500 mg day ity of (ZITHROMAX 00:00: 1, then [place] Z-STEVEN) 250 00 250 mg Medical mg tablet days 2 to Branc h 5. Z-Steven = 500mg day 1, then 250mg days 2 to 5. fluticasone 2021-04 Yes [id number] 1{spray Use 1 [facility] propionate 0-25 } [place] in ity o f 50 00:00: each [place] mcg/actuati 00 nostril in Me dical on nasal the Branch spray morning. azelastine 2021-04 Yes [id number] 1{spray Use 1 [facility] 137 mcg 0-25 } [place] in ity of (0.1 %) 00:00: each [place] nasal spray 00 nostril in Me dical the Branch morning and 1 [place] in the evening. Use in each nostril as directed guaiFENesin 2021-04 Yes [id number] 400mg Take 1 [facility] 400 mg 0-25 tablet by ity of tablet 00:00: mouth [place] 00 every 4 Medical (four) Branch hours as needed for Cough. azithromyci 2021-04 Yes [id number] [facility] = [facility] n 0-25 500 mg day ity of (ZITHROMAX 00:00: 1, then [place] Z-STEVEN) 250 00 250 mg Medical mg tablet days 2 to Branc h 5. Z-Steven = 500mg day 1, then 250mg days 2 to 5. fluticasone 2021-04 Yes [id number] 1{spray Use 1 [facility] propionate 0-25 } [place] in ity o f 50 00:00: each [place] mcg/actuati 00 nostril in N[place] dical on nasal the Branch spray morning. azelastine 2021-04 Yes [id number] 1{spray Use 1 [facility] 137 mcg 0-25 } [place] in ity of (0.1 %) 00:00: each [place] nasal spray 00 nostril in N[place] dical the Branch morning and 1 [place] in the evening. Use in each nostril as directed guaiFENesin 2021-04 Yes [id number] 400mg Take 1 [facility] 400 mg 0-25 tablet by ity of tablet 00:00: mouth [place] 00 every 4 Medical (four) Branch hours as needed for Cough. azithromyci 2021-04 Yes [id number] [facility] = [facility] n 0-25 500 mg day ity of (ZITHROMAX 00:00: 1, then [place] Z-STEVEN) 250 00 250 mg Medical mg tablet days 2 to Branc h 5. Z-Steven = 500mg day 1, then 250mg days 2 to 5. fluticasone 2021-04 Yes [id number] 1{spray Use 1 [facility] propionate 0-25 } [place] in ity o f 50 00:00: each [place] mcg/actuati 00 nostril in Me dical on nasal the Branch spray morning. azelastine 2021-04 Yes [id number] 1{spray Use 1 [facility] 137 mcg 0-25 } [place] in ity of (0.1 %) 00:00: each [place] nasal spray 00 nostril in Nd dical the Branch morning and 1 [place] in the evening. Use in each nostril as directed guaiFENesin 2021-04 Yes [id number] 400mg Take 1 [facility] 400 mg 0-25 tablet by ity of tablet 00:00: mouth [place] 00 every 4 Medical (four) Branch hours as needed for Cough. azithromyci 2021-04 Yes [id number] [facility] = [facility] n 0-25 500 mg day ity of (ZITHROMAX 00:00: 1, then [place] Z-STEVEN) 250 00 250 mg Medical mg tablet days 2 to Branc h 5. Z-Steven = 500mg day 1, then 250mg days 2 to 5. fluticasone 2021-04 Yes [id number] 1{spray Use 1 [facility] propionate 0-25 } [place] in ity o f 50 00:00: each [place] mcg/actuati 00 nostril in Nd dical on nasal the Branch spray morning. azelastine 2021-04 Yes [id number] 1{spray Use 1 [facility] 137 mcg 0-25 } [place] in ity of (0.1 %) 00:00: each [place] nasal spray 00 nostril in Nd dical the Branch morning and 1 [place] in the evening. Use in each nostril as directed guaiFENesin 2021-04 Yes [id number] 400mg Take 1 [facility] 400 mg 0-25 tablet by ity of tablet 00:00: mouth [place] 00 every 4 Medical (four) Branch hours as needed for Cough. azithromyci 2021-04 Yes [id number] Z-Steven = [facility] n 0-25 500 mg day ity of (ZITHROMAX 00:00: 1, [place] Z-STEVEN) 250 00 250 mg Medical mg tablet days 2 to Branc h 5. Z-Steven = 500mg day 1, then 250mg days 2 to 5. fluticasone 2021-04 Yes [id number] 1{spray Use 1 [facility] propionate 0-25 } [place] in ity o f 50 00:00: each [place] mcg/actuati 00 nostril in Me dical on nasal the Branch spray morning. azelastine 2021-04 Yes [id number] 1{spray Use 1 [facility] 137 mcg 0-25 } [place] in ity of (0.1 %) 00:00: each [place] nasal spray 00 nostril in Me dical the Branch morning and 1 [place] in the evening. Use in each nostril as directed guaiFENesin 2021-04 Yes [id number] 400mg Take 1 [facility] 400 mg 0-25 tablet by ity of tablet 00:00: mouth [place] 00 every 4 Medical (four) Branch hours as needed for Cough. azithromyci 2021-04 Yes [id number] Z-[facility] = [facility] n 0-25 500 mg day ity of (ZITHROMAX 00:00: 1, then [place] Z-STEVEN) 250 00 250 mg Medical mg tablet days 2 to Branc h 5. Z-Steven = 500mg day 1, then 250mg days 2 to 5. fluticasone 2021-04 Yes [id number] 1{spray Use 1 [facility] propionate 0-25 } [place] in ity o f 50 00:00: each [place] mcg/actuati 00 nostril in [facility] d[facility] on nasal the Branch spray morning. azelastine 2021-04 Yes [id number] 1{spray Use 1 [facility] 137 mcg 0-25 } [place] in ity of (0.1 %) 00:00: each [place] nasal spray 00 nostril in [facility] dical the Branch morning and 1 [place] in the evening. Use in each nostril as directed guaiFENesin 2021-04 Yes [id number] 400mg Take 1 [facility] 400 mg 0-25 tablet by ity of tablet 00:00: mouth [place] 00 every 4 Medical (four) Branch hours as needed for Cough. azithromyci 2021-04 Yes [id number] [facility] = [facility] n 0-25 500 mg day ity of (ZITHROMAX 00:00: [place] [facility]EV[facility] 250 00 250 mg Medical mg tablet days 2 to Branc h 5. Z-Steven = 500mg day 1, then 250mg days 2 to 5. fluticasone 2021-04 Yes [id number] 1{spray Use 1 [facility] propionate 0-25 } [place] in ity o f 50 00:00: each [place] mcg/actuati 00 nostril in Nd dical on nasal the Branch spray morning. azelastine 2021-04 Yes [id number] 1{spray Use 1 [facility] 137 mcg 0-25 } [place] in ity of (0.1 %) 00:00: each [place] nasal spray 00 nostril in Me dical the Branch morning and 1 [place] in the evening. Use in each nostril as directed guaiFENesin 2021-04 Yes [id number] 400mg Take 1 [facility] 400 mg 0-25 tablet by ity of tablet 00:00: mouth [place] 00 every 4 Medical (four) Branch hours as needed for Cough. azithromyci 2021-04 Yes [id number] Z-Steven = [facility] n 0-25 500 mg day ity of (ZITHROMAX 00:00: [place], [place] [facility]-STEV[facility] 250 00 250 mg Medical mg tablet days 2 to Branc h 5. Z-[facility] = 500mg day 1, then 250mg days 2 to 5. fluticasone 2021-04 Yes [id number] 1{spray Use 1 [facility] propionate 0-25 } [place] in ity o f 50 00:00: each [place] mcg/actuati 00 nostril in Nd dical on nasal the Branch spray morning. azelastine 2021-04 Yes [id number] 1{spray Use 1 [facility] 137 mcg 0-25 } [place] in ity of (0.1 %) 00:00: each [place] nasal spray 00 nostril in N[facility] d[facility] the Branch morning and 1 [place] in the evening. Use in each nostril as directed guaiFENesin 2021-04 Yes [id number] 400mg Take 1 [facility] 400 mg 0-25 tablet by ity of tablet 00:00: mouth [place] 00 every 4 Medical (four) Branch hours as needed for Cough. azithromyci 2021-04 Yes [id number] Z-[facility] = [facility] n 0-25 500 mg day ity of (ZITHROMAX 00:00: [place], [place] [facility]-STEV[facility] 250 00 250 mg Medical mg tablet days 2 to Branc h 5. Z-Steven = 500mg day 1, then 250mg days 2 to 5. fluticasone 2021-04 Yes [id number] 1{spray Use 1 [facility] propionate 0-25 } [place] in ity o f 50 00:00: each [place] mcg/actuati 00 nostril in Me dical on nasal the Branch spray morning. azelastine 2021-04 Yes [id number] 1{spray Use 1 [facility] 137 mcg 0-25 } [place] in ity of (0.1 %) 00:00: each [place] nasal spray 00 nostril in Me dical the Branch morning and 1 [place] in the evening. Use in each nostril as directed guaiFENesin 2021-04 Yes [id number] 400mg Take 1 [facility] 400 mg 0-25 tablet by ity of tablet 00:00: mouth [place] 00 every 4 Medical (four) Branch hours as needed for Cough. azithromyci 2021-04 Yes [id number] [facility] = [facility] n 0-25 500 mg day ity of (ZITHROMAX 00:00: 1, [place] [facility]-STEV[facility] 250 00 250 mg Medical mg tablet days 2 to Branc h 5. [facility] = 500mg day 1, then 250mg days 2 to 5. fluticasone 2021-04 Yes [id number] 1{spray Use 1 [facility] propionate 0-25 } [place] in ity o f 50 00:00: each [place] mcg/actuati 00 nostril in Me dical on nasal the Branch spray morning. azelastine 2021-04 Yes [id number] 1{spray Use 1 [facility] 137 mcg 0-25 } [place] in ity of (0.1 %) 00:00: each [place] nasal spray 00 nostril in Nd dical the Branch morning and 1 [place] in the evening. Use in each nostril as directed guaiFENesin 2021-04 Yes [id number] 400mg Take 1 [facility] 400 mg 0-25 tablet by ity of tablet 00:00: mouth [place] 00 every 4 Medical (four) Branch hours as needed for Cough. azithromyci 2021-04 Yes [id number] Z-[facility] = [facility] n 0-25 500 mg day ity of (ZITHROMAX 00:00: 1, [place] [facility]-STEVEN[place] 250 00 250 mg Medical mg tablet days 2 to Branc h 5. [facility] = 500mg day 1, then 250mg days 2 to 5. fluticasone 2021-04 Yes [id number] 1{spray Use 1 [facility] propionate 0-25 } [place] in ity o f 50 00:00: each [place] mcg/actuati 00 nostril in Me dical on nasal the Branch spray morning. azelastine 2021-04 Yes [id number] 1{spray Use 1 [facility] 137 mcg 0-25 } [place] in ity of (0.1 %) 00:00: each [place] nasal spray 00 nostril in Me dical the Branch morning and 1 [place] in the evening. Use in each nostril as directed guaiFENesin 2021-04 Yes [id number] 400mg Take 1 [facility] 400 mg 0-25 tablet by ity of tablet 00:00: mouth [place] 00 every 4 Medical (four) Branch hours as needed for Cough. azithromyci 2021-04 Yes [id number] Z-[facility] = [facility] n 0-25 500 mg day ity of (ZITHROMAX 00:00: 1, [place] [facility]-STEVEN[place] 250 00 250 mg Medical mg tablet days 2 to Branc h 5. [facility] = 500mg day 1, then 250mg days 2 to 5. fluticasone 2021-04 Yes [id number] 1{spray Use 1 [facility] propionate 0-25 } [place] in ity o f 50 00:00: each [place] mcg/actuati 00 nostril in Me dical on nasal the Branch spray morning. azelastine 2021-04 Yes [id number] 1{spray Use 1 [facility] 137 mcg 0-25 } [place] in ity of (0.1 %) 00:00: each [place] nasal spray 00 nostril in Me dical the Branch morning and 1 [place] in the evening. Use in each nostril as directed guaiFENesin 2021-04 Yes [id number] 400mg Take 1 [facility] 400 mg 0-25 tablet by ity of tablet 00:00: mouth [place] 00 every 4 Medical (four) Branch hours as needed for Cough. azithromyci 2021-04 Yes [id number] Z-[facility] = [facility] n 0-25 500 mg day ity of (ZITHROMAX 00:00: 1, [place] [facility]-STEVEN[place] 250 00 250 mg Medical mg tablet days 2 to Branc h 5. Z-Steven = 500mg day 1, then 250mg days 2 to 5. fluticasone 2021-04 Yes [id number] 1{spray Use 1 [facility] propionate 0-25 } [place] in ity o f 50 00:00: each [place] mcg/actuati 00 nostril in Me dical on nasal the Branch spray morning. azelastine 2021-04 Yes [id number] 1{spray Use 1 [facility] 137 mcg 0-25 } [place] in ity of (0.1 %) 00:00: each [place] nasal spray 00 nostril in Me dical the Branch morning and 1 [place] in the evening. Use in each nostril as directed guaiFENesin 2021-04 Yes [id number] 400mg Take 1 [facility] 400 mg 0-25 tablet by ity of tablet 00:00: mouth [place] 00 every 4 Medical (four) Branch hours as needed for Cough. azithromyci 2021-04 Yes [id number] Z-[facility] = [facility] n 0-25 500 mg day ity of (ZITHROMAX 00:00: 1, [place] [facility]-STEV[facility] 250 00 250 mg Medical mg tablet days 2 to Branc h 5. [facility] = 500mg day 1, then 250mg days 2 to 5. fluticasone 2021-04 Yes [id number] 1{spray Use 1 [facility] propionate 0-25 } [place] in ity o f 50 00:00: each [place] mcg/actuati 00 nostril in Me dical on nasal the Branch spray morning. azelastine 2021-04 Yes [id number] 1{spray Use 1 [facility] 137 mcg 0-25 } [place] in ity of (0.1 %) 00:00: each [place] nasal spray 00 nostril in Me dical the Branch morning and 1 [place] in the evening. Use in each nostril as directed guaiFENesin 2021-04 Yes [id number] 400mg Take 1 [facility] 400 mg 0-25 tablet by ity of tablet 00:00: mouth [place] 00 every 4 Medical (four) Branch hours as needed for Cough. azithromyci 2021-04 Yes [id number] Z-[facility] = [facility] n 0-25 500 mg day ity of (ZITHROMAX 00:00: 1, [place] [facility]-STEV[facility] 250 00 250 mg Medical mg tablet days 2 to Branc h 5. Z-[facility] = 500mg day 1, then 250mg days 2 to 5. fluticasone 2021-04 Yes [id number] 1{spray Use 1 [facility] propionate 0-25 } [place] in ity o f 50 00:00: each [place] mcg/actuati 00 nostril in Me dical on nasal the Branch spray morning. azelastine 2021-04 Yes [id number] 1{spray Use 1 [facility] 137 mcg 0-25 } [place] in ity of (0.1 %) 00:00: each [place] nasal spray 00 nostril in Me dical the Branch morning and 1 [place] in the evening. Use in each nostril as directed guaiFENesin 2021-04 Yes [id number] 400mg Take 1 [facility] 400 mg 0-25 tablet by ity of tablet 00:00: mouth [place] 00 every 4 Medical (four) Branch hours as needed for Cough. azithromyci 2021-04 Yes [id number] [facility] = [facility] n 0-25 500 mg day ity of (ZITHROMAX 00:00: 1, [place] [facility]-STEVEN[place] 250 00 250 mg Medical mg tablet days 2 to Branc h 5. [facility] = 500mg day 1, then 250mg days 2 to 5. fluticasone 2021-04 Yes [id number] 1{spray Use 1 [facility] propionate 0-25 } [place] in ity o f 50 00:00: each [place] mcg/actuati 00 nostril in Me dical on nasal the Branch spray morning. azelastine 2021-04 Yes [id number] 1{spray Use 1 [facility] 137 mcg 0-25 } [place] in ity of (0.1 %) 00:00: each [place] nasal spray 00 nostril in Me dical the Branch morning and 1 [place] in the evening. Use in each nostril as directed guaiFENesin 2021-04 Yes [id number] 400mg Take 1 [facility] 400 mg 0-25 tablet by ity of tablet 00:00: mouth [place] 00 every 4 Medical (four) Branch hours as needed for Cough. azithromyci 2021-04 Yes [id number] [facility] = [facility] n 0-25 500 mg day ity of (ZITHROMAX 00:00: 1, [place] [facility]-STEV[facility] 250 00 250 mg Medical mg tablet days 2 to Branc h 5. [facility] = 500mg day 1, then 250mg days 2 to 5. fluticasone 2021-04 Yes [id number] 1{spray Use 1 [facility] propionate 0-25 } [place] in ity o f 50 00:00: each [place] mcg/actuati 00 nostril in Me dical on nasal the Branch spray morning. azelastine 2021-04 Yes [id number] 1{spray Use 1 [facility] 137 mcg 0-25 } [place] in ity of (0.1 %) 00:00: each [place] nasal spray 00 nostril in Me dical the Branch morning and 1 [place] in the evening. Use in each nostril as directed guaiFENesin 2021-04 Yes [id number] 400mg Take 1 [facility] 400 mg 0-25 tablet by ity of tablet 00:00: mouth [place] 00 every 4 Medical (four) Branch hours as needed for Cough. azithromyci 2021-04 Yes [id number] [facility] = [facility] n 0-25 500 mg day ity of (ZITHROMAX 00:00: 1, [place] Z-STEVEN) 250 00 250 mg Medical mg tablet days 2 to Branc h 5. Z-Steven = 500mg day 1, then 250mg days 2 to 5. fluticasone 2021-04 Yes [id number] 1{spray Use 1 [facility] propionate 0-25 } [place] in ity o f 50 00:00: each [place] mcg/actuati 00 nostril in Me dical on nasal the Branch spray morning. azelastine 2021-04 Yes [id number] 1{spray Use 1 [facility] 137 mcg 0-25 } [place] in ity of (0.1 %) 00:00: each [place] nasal spray 00 nostril in Me dical the Branch morning and 1 [place] in the evening. Use in each nostril as directed guaiFENesin 2021-04 Yes [id number] 400mg Take 1 [facility] 400 mg 0-25 tablet by ity of tablet 00:00: mouth [place] 00 every 4 Medical (four) Branch hours as needed for Cough. azelastine 2021-04 Yes [id number] 1{spray Use 1 [facility] 137 mcg 0-25 } [place] in ity of (0.1 %) 00:00: each [place] nasal spray 00 nostril in Me dical the Branch morning and 1 [place] in the evening. Use in each nostril as directed azelastine 2021-04 Yes [id number] 1{spray Use 1 [facility] 137 mcg 0-25 } [place] in ity of (0.1 %) 00:00: each [place] nasal spray 00 nostril in Me dical the Branch morning and 1 [place] in the evening. Use in each nostril as directed azelastine 2021-04 Yes [id number] 1{spray Use 1 [facility] 137 mcg 0-25 } [place] in ity of (0.1 %) 00:00: each [place] nasal spray 00 nostril in Me dical the Branch morning and 1 [place] in the evening. Use in each nostril as directed azelastine 2- Yes [id number] 1{spray Use 1 [facility] 137 mcg 0-25 } [place] in ity of (0.1 %) 00:00: each [place] nasal spray 00 nostril in N[facility] dical the Branch morning and 1 [place] in the evening. Use in each nostril as directed azelastine 2022- Yes [id number] 1{spray Use 1 [facility] 137 mcg 0-25 } [place] in ity of (0.1 %) 00:00: each [place] nasal spray 00 nostril in N[facility] d[facility] the Branch morning and 1 [place] in the evening. Use in each nostril as directed azelastine 2021-1 Yes [id number] 1{spray Use 1 [facility] 137 mcg 0-25 } [place] in ity of (0.1 %) 00:00: each [place] nasal spray 00 nostril in N[facility] dical the Branch morning and 1 [place] in the evening. Use in each nostril as directed azelastine 2021-1 Yes [id number] 1{spray Use 1 [facility] 137 mcg 0-25 } [place] in ity of (0.1 %) 00:00: each [place] nasal spray 00 nostril in N[facility] d[facility] the Branch morning and 1 [place] in the evening. Use in each nostril as directed azelastine 2-1 Yes [id number] 1{spray Use 1 [facility] 137 mcg 0-25 } [place] in ity of (0.1 %) 00:00: each [place] nasal spray 00 nostril in N[facility] d[facility] the Branch morning and 1 [place] in the evening. Use in each nostril as directed azelastine 2-1 Yes [id number] 1{spray Use 1 [facility] 137 mcg 0-25 } [place] in ity of (0.1 %) 00:00: each [place] nasal spray 00 nostril in N[facility] d[facility] the Branch morning and 1 [place] in the evening. Use in each nostril as directed azelastine 2- Yes [id number] 1{spray Use 1 [facility] 137 mcg 0-25 } [place] in ity of (0.1 %) 00:00: each [place] nasal spray 00 nostril in Me d[facility] the Branch morning and 1 [place] in the evening. Use in each nostril as directed azelastine 2021- Yes [id number] 1{spray Use 1 [facility] 137 mcg 0-25 } [place] in ity of (0.1 %) 00:00: each [place] nasal spray 00 nostril in Me d[facility] the Branch morning and 1 [place] in the evening. Use in each nostril as directed azelastine 2021- Yes [id number] 1{spray Use 1 [facility] 137 mcg 0-25 } [place] in ity of (0.1 %) 00:00: each [place] nasal spray 00 nostril in Me d[facility] the Branch morning and 1 [place] in the evening. Use in each nostril as directed azelastine 2021- Yes [id number] 1{spray Use 1 [facility] 137 mcg 0-25 } [place] in ity of (0.1 %) 00:00: each [place] nasal spray 00 nostril in Me d[facility] the Branch morning and 1 [place] in the evening. Use in each nostril as directed azelastine 2021- Yes [id number] 1{spray Use 1 [facility] 137 mcg 0-25 } [place] in ity of (0.1 %) 00:00: each [place] nasal spray 00 nostril in Me d[facility] the Branch morning and 1 [place] in the evening. Use in each nostril as directed azelastine 2021- Yes [id number] 1{spray Use 1 [facility] 137 mcg 0-25 } [place] in ity of (0.1 %) 00:00: each [place] nasal spray 00 nostril in Me d[facility] the Branch morning and 1 [place] in the evening. Use in each nostril as directed azelastine 2- Yes [id number] 1{spray Use 1 [facility] 137 mcg 0-25 } [place] in ity of (0.1 %) 00:00: each [place] nasal spray 00 nostril in Me dical the Branch morning and 1 [place] in the evening. Use in each nostril as directed azelastine 2- Yes [id number] 1{spray Use 1 [facility] 137 mcg 0-25 } [place] in ity of (0.1 %) 00:00: each [place] nasal spray 00 nostril in Me dical the Branch morning and 1 [place] in the evening. Use in each nostril as directed azelastine 2021-04 Yes [id number] 1{spray Use 1 [facility] 137 mcg 0-25 } [place] in ity of (0.1 %) 00:00: each [place] nasal spray 00 nostril in Me dical the Branch morning and 1 [place] in the evening. Use in each nostril as directed azelastine 2021-04 Yes [id number] 1{spray Use 1 [facility] 137 mcg 0-25 } [place] in ity of (0.1 %) 00:00: each [place] nasal spray 00 nostril in Me dical the Branch morning and 1 [place] in the evening. Use in each nostril as directed azelastine 2021-04 Yes [id number] 1{spray Use 1 [facility] 137 mcg 0-25 } [place] in ity of (0.1 %) 00:00: each [place] nasal spray 00 nostril in Me dical the Branch morning and 1 [place] in the evening. Use in each nostril as directed azelastine 2021-04 Yes [id number] 1{spray Use 1 [facility] 137 mcg 0-25 } [place] in ity of (0.1 %) 00:00: each [place] nasal spray 00 nostril in Me dical the Branch morning and 1 [place] in the evening. Use in each nostril as directed azelastine 2021-04 Yes [id number] 1{spray Use 1 [facility] 137 mcg 0-25 } [place] in ity of (0.1 %) 00:00: each [place] nasal spray 00 nostril in Me dical the Branch morning and 1 [place] in the evening. Use in each nostril as directed azelastine 2021-2022- No [id number] 1{spray Use 1 [facility] 137 mcg 0-25 03-30 } [place] in ity of (0.1 %) 00:00: 00:00 each [place] nasal spray 00 :00 nostril in Me dical the Branch morning and 1 [place] in the evening. Use in each nostril as directed azelastine 2021-2022- No [id number] 1{spray Use 1 [facility] 137 mcg 0-25 03-30 } [place] in ity of (0.1 %) 00:00: 00:00 each [place] nasal spray 00 :00 nostril in Me dical the Branch morning and 1 [place] in the evening. Use in each nostril as directed azithromyci 2021-04- No [id number] Z-Steven = [facility] n 0-25 02-18 500 mg day ity of (ZITHROMAX 00:00: 00:00 1, then [place] [facility]EN) 250 00 :00 250 mg Medical mg tablet days 2 to Branc h 5. Z-Steven = 500mg day 1, then 250mg days 2 to 5. fluticasone 2021-04- No [id number] 1{spray Use 1 [facility] propionate 0-25 02-18 } [place] in ity of 50 00:00: 00:00 each [place] mcg/actuati 00 :00 nostril in Me dical on nasal the Branch spray morning. guaiFENesin 2021-04- No [id number] 400mg Take 1 [facility] 400 mg 0-25 02-18 tablet by ity of tablet 00:00: 00:00 mouth [place] 00 :00 every 4 Medical (four) Branch hours as needed for Cough. fluticasone 2021-04 Yes [id number] 1{spray Use 1 [facility] propionate 0-14 } [place] in ity o f 50 00:00: each [place] mcg/actuati 00 nostril in Me dical on nasal the Branch spray morning. fluticasone 2021-04- No [id number] 1{spray Use 1 [facility] propionate 0-14 10-25 } [place] in ity of 50 00:00: 00:00 each [place] mcg/actuati 00 :00 nostril in Me dical on nasal the Branch spray morning. fluticasone 2021-04 Yes [id number] 1{spray Use 1 [facility] propionate 0-11 } [place] in ity o f 50 00:00: each [place] mcg/actuati 00 nostril in Me dical on nasal the Branch spray morning. Use 2 spray(s) in each nostril once daily fluticasone 2021-04 Yes [id number] 1{spray Use 1 [facility] propionate 0-11 } [place] in ity o f 50 00:00: each [place] mcg/actuati 00 nostril in Me dical on nasal the Branch spray morning. Use 2 spray(s) in each nostril once daily fluticasone 2021-04 Yes [id number] 1{spray Use 1 [facility] propionate 0-11 } [place] in ity o f 50 00:00: each [place] mcg/actuati 00 nostril in Me dical on nasal the Branch spray morning. Use 2 spray(s) in each nostril once daily fluticasone 2021-04 Yes [id number] 1{spray Use 1 [facility] propionate 0-11 } [place] in ity o f 50 00:00: each [place] mcg/actuati 00 nostril in Me dical on nasal the Branch spray morning. Use 2 spray(s) in each nostril once daily fluticasone 2021-04- No [id number] 1{spray Use 1 [facility] propionate 0-11 10-14 } [place] in ity of 50 00:00: 00:00 each [place] mcg/actuati 00 :00 nostril in Me dical on nasal the Branch spray morning. Use 2 spray(s) in each nostril once daily bromphenira 2021-04 Yes [id number] 5mL Take 5 mL [facility] mine-pseudo 0-10 by mouth 4 it y of ephedrine-D 00:00: (four) [place] M (BROMFED 00 times Medical DM) 2-30-10 daily as Bran ch mg/5 mL needed for syrup Congestion /Allergies . ondansetron 2021-04 Yes [id number] 4mg Take 1 [facility] 4 mg 0-10 tablet by ity of disintegrat 00:00: mouth [place] ing tablet 00 every 8 Medica l (eight) Branch hours as needed for Nausea and Vomiting (N/V). benzonatate 2021-04 Yes [id number] 200mg Take 2 [facility] 100 mg 0-10 capsules ity of capsule 00:00: by mouth [place] 00 every 8 Medical (eight) Branch hours as needed for Cough. bromphenira 2021-04 Yes [id number] 5mL Take 5 mL [facility] mine-pseudo 0-10 by mouth 4 it y of ephedrine-D 00:00: (four) [place] M (BROMFED 00 times Medical DM) 2-30-10 daily as Bran ch mg/5 mL needed for syrup Congestion /Allergies . ondansetron 2021-04 Yes [id number] 4mg Take 1 [facility] 4 mg 0-10 tablet by ity of disintegrat 00:00: mouth [place] ing tablet 00 every 8 Medica l (eight) Branch hours as needed for Nausea and Vomiting (N/V). benzonatate 2021-04 Yes [id number] 200mg Take 2 [facility] 100 mg 0-10 capsules ity of capsule 00:00: by mouth [place] 00 every 8 Medical (eight) Branch hours as needed for Cough. bromphenira 2021-04 Yes [id number] 5mL Take 5 mL [facility] mine-pseudo 0-10 by mouth 4 it y of ephedrine-D 00:00: (four) [place] M (BROMFED 00 times Medical DM) 2-30-10 daily as Bran ch mg/5 mL needed for syrup Congestion /Allergies . ondansetron 2021-04 Yes [id number] 4mg Take 1 [facility] 4 mg 0-10 tablet by ity of disintegrat 00:00: mouth [place] ing tablet 00 every 8 Medica l (eight) Branch hours as needed for Nausea and Vomiting (N/V). benzonatate 2021-04 Yes [id number] 200mg Take 2 [facility] 100 mg 0-10 capsules ity of capsule 00:00: by mouth [place] 00 every 8 Medical (eight) Branch hours as needed for Cough. bromphenira 2021-04 Yes [id number] 5mL Take 5 mL [facility] mine-pseudo 0-10 by mouth 4 it y of ephedrine-D 00:00: (four) [place] M (BROMFED 00 times Medical DM) 2-30-10 daily as Bran ch mg/5 mL needed for syrup Congestion /Allergies . ondansetron 2021-04 Yes [id number] 4mg Take 1 [facility] 4 mg 0-10 tablet by ity of disintegrat 00:00: mouth [place] ing tablet 00 every 8 Medica l (eight) Branch hours as needed for Nausea and Vomiting (N/V). benzonatate 2021-04 Yes [id number] 200mg Take 2 [facility] 100 mg 0-10 capsules ity of capsule 00:00: by mouth [place] 00 every 8 Medical (eight) Branch hours as needed for Cough. bromphenira 2021-04 Yes [id number] 5mL Take 5 mL [facility] mine-pseudo 0-10 by mouth 4 it y of ephedrine-D 00:00: (four) [place] M (BROMFED 00 times Medical DM) 2-30-10 daily as Bran ch mg/5 mL needed for syrup Congestion /Allergies . ondansetron 2021-04 Yes [id number] 4mg Take 1 [facility] 4 mg 0-10 tablet by ity of disintegrat 00:00: mouth [place] ing tablet 00 every 8 Medica l (eight) Branch hours as needed for Nausea and Vomiting (N/V). benzonatate 2021-04 Yes [id number] 200mg Take 2 [facility] 100 mg 0-10 capsules ity of capsule 00:00: by mouth [place] 00 every 8 Medical (eight) Branch hours as needed for Cough. bromphenira 2021-04 Yes [id number] 5mL Take 5 mL [facility] mine-pseudo 0-10 by mouth 4 it y of ephedrine-D 00:00: (four) [place] M (BROMFED 00 times Medical DM) 2-30-10 daily as Bran ch mg/5 mL needed for syrup Congestion /Allergies . ondansetron 2021-04 Yes [id number] 4mg Take 1 [facility] 4 mg 0-10 tablet by ity of disintegrat 00:00: mouth [place] ing tablet 00 every 8 Medica l (eight) Branch hours as needed for Nausea and Vomiting (N/V). benzonatate 2021-04 Yes [id number] 200mg Take 2 [facility] 100 mg 0-10 capsules ity of capsule 00:00: by mouth [place] 00 every 8 Medical (eight) Branch hours as needed for Cough. bromphenira 2021-04 Yes [id number] 5mL Take 5 mL [facility] mine-pseudo 0-10 by mouth 4 it y of ephedrine-D 00:00: (four) [place] M (BROMFED 00 times Medical DM) 2-30-10 daily as Bran ch mg/5 mL needed for syrup Congestion /Allergies . benzonatate 2021-04 Yes [id number] 200mg Take 2 [facility] 100 mg 0-10 capsules ity of capsule 00:00: by mouth [place] 00 every 8 Medical (eight) Branch hours as needed for Cough. bromphenira 2021-04 Yes [id number] 5mL Take 5 mL [facility] mine-pseudo 0-10 by mouth 4 it y of ephedrine-D 00:00: (four) [place] M (BROMFED 00 times Medical DM) 2-30-10 daily as Bran ch mg/5 mL needed for syrup Congestion /Allergies . benzonatate 2021-04 Yes [id number] 200mg Take 2 [facility] 100 mg 0-10 capsules ity of capsule 00:00: by mouth [place] 00 every 8 Medical (eight) Branch hours as needed for Cough. bromphenira 2021-04 Yes [id number] 5mL Take 5 mL [facility] mine-pseudo 0-10 by mouth 4 it y of ephedrine-D 00:00: (four) [place] M (BROMFED 00 times Medical DM) 2-30-10 daily as Bran ch mg/5 mL needed for syrup Congestion /Allergies . benzonatate 2021-04 Yes [id number] 200mg Take 2 [facility] 100 mg 0-10 capsules ity of capsule 00:00: by mouth [place] 00 every 8 Medical (eight) Branch hours as needed for Cough. bromphenira 2021-04 Yes [id number] 5mL Take 5 mL [facility] mine-pseudo 0-10 by mouth 4 it y of ephedrine-D 00:00: (four) [place] M (BROMFED 00 times Medical DM) 2-30-10 daily as Bran ch mg/5 mL needed for syrup Congestion /Allergies . benzonatate 2021-04 Yes [id number] 200mg Take 2 [facility] 100 mg 0-10 capsules ity of capsule 00:00: by mouth [place] 00 every 8 Medical (eight) Branch hours as needed for Cough. bromphenira 2021-04 Yes [id number] 5mL Take 5 mL [facility] mine-pseudo 0-10 by mouth 4 it y of ephedrine-D 00:00: (four) [place] M (BROMFED 00 times Medical DM) 2-30-10 daily as Bran ch mg/5 mL needed for syrup Congestion /Allergies . benzonatate 2021-04 Yes [id number] 200mg Take 2 [facility] 100 mg 0-10 capsules ity of capsule 00:00: by mouth [place] 00 every 8 Medical (eight) Branch hours as needed for Cough. bromphenira 2021-04 Yes [id number] 5mL Take 5 mL [facility] mine-pseudo 0-10 by mouth 4 it y of ephedrine-D 00:00: (four) [place] M (BROMFED 00 times Medical DM) 2-30-10 daily as Bran ch mg/5 mL needed for syrup Congestion /Allergies . benzonatate 2021-04 Yes [id number] 200mg Take 2 [facility] 100 mg 0-10 capsules ity of capsule 00:00: by mouth [place] 00 every 8 Medical (eight) Branch hours as needed for Cough. bromphenira 2021-04 Yes [id number] 5mL Take 5 mL [facility] mine-pseudo 0-10 by mouth 4 it y of ephedrine-D 00:00: (four[place] ([facility] [facility] times [facility] DM) 2-30-10 daily as [facility] ch mg/5 mL needed for syrup Congestion /Allergies . benzonatate 2021-04 Yes [id number] 200mg Take 2 [facility] 100 mg 0-10 capsules ity of capsule 00:00: by mouth [place] 00 every 8 Medical (eight) Branch hours as needed for Cough. bromphenira 2021-04 Yes [id number] 5mL Take 5 mL [facility] mine-pseudo 0-10 by mouth 4 it y of ephedrine-D 00:00: (four[place] ([facility] 00 times [facility] DM) 2-30-10 daily as [facility] ch mg/5 mL needed for syrup Congestion /Allergies . benzonatate 2021-04 Yes [id number] 200mg Take 2 [facility] 100 mg 0-10 capsules ity of capsule 00:00: by mouth [place] 00 every 8 Medical (eight) Branch hours as needed for Cough. bromphenira 2021-04 Yes [id number] 5mL Take 5 mL [facility] mine-pseudo 0-10 by mouth 4 it y of ephedrine-D 00:00: (four[place] ([facility] 00 times [facility] DM) 2-30-10 daily as [facility] ch mg/5 mL needed for syrup Congestion /Allergies . benzonatate 2021-04 Yes [id number] 200mg Take 2 [facility] 100 mg 0-10 capsules ity of capsule 00:00: by mouth [place] 00 every 8 Medical (eight) Branch hours as needed for Cough. bromphenira 2021-04 Yes [id number] 5mL Take 5 mL [facility] mine-pseudo 0-10 by mouth 4 it y of ephedrine-D 00:00: (four) [place] ([facility] 00 times Medical DM) 2-30-10 daily as [facility] ch mg/5 mL needed for syrup Congestion /Allergies . benzonatate 2021-04 Yes [id number] 200mg Take 2 [facility] 100 mg 0-10 capsules ity of capsule 00:00: by mouth [place] 00 every 8 Medical (eight) Branch hours as needed for Cough. bromphenira 2021-04 Yes [id number] 5mL Take 5 mL [facility] mine-pseudo 0-10 by mouth 4 it y of ephedrine-D 00:00: (four) [place] ([facility] 00 times Medical DM) 2-30-10 daily as [facility] ch mg/5 mL needed for syrup Congestion /Allergies . benzonatate 2021-04 Yes [id number] 200mg Take 2 [facility] 100 mg 0-10 capsules ity of capsule 00:00: by mouth [place] 00 every 8 Medical (eight) Branch hours as needed for Cough. bromphenira 2021-04 Yes [id number] 5mL Take 5 mL [facility] mine-pseudo 0-10 by mouth 4 it y of ephedrine-D 00:00: (four) [place] ([facility] 00 times [facility] DM) 2-30-10 daily as [facility] ch mg/5 mL needed for syrup Congestion /Allergies . bromphenira 2021-04 Yes [id number] 5mL Take 5 mL [facility] mine-pseudo 0-10 by mouth 4 it y of ephedrine-D 00:00: (four) [place] ([facility] 00 times Medical DM) 2-30-10 daily as [facility] ch mg/5 mL needed for syrup Congestion /Allergies . bromphenira 2021-04 Yes [id number] 5mL Take 5 mL [facility] mine-pseudo 0-10 by mouth 4 it y of ephedrine-D 00:00: (four) [place] ([facility] 00 times Medical DM) 2-30-10 daily as [facility] ch mg/5 mL needed for syrup Congestion /Allergies . bromphenira 2021-04 Yes [id number] 5mL Take 5 mL [facility] mine-pseudo 0-10 by mouth 4 it y of ephedrine-D 00:00: (four[place] ([facility] 00 times Medical DM) 2-30-10 daily as [facility] ch mg/5 mL needed for syrup Congestion /Allergies . bromphenira 2021-04 Yes [id number] 5mL Take 5 mL [facility] mine-pseudo 0-10 by mouth 4 it y of ephedrine-D 00:00: (four) [place] ([facility] 00 times Medical DM) 2-30-10 daily as [facility] ch mg/5 mL needed for syrup Congestion /Allergies . bromphenira 2021-04 Yes [id number] 5mL Take 5 mL [facility] mine-pseudo 0-10 by mouth 4 it y of ephedrine-D 00:00: (four) [place] ([facility] 00 times Medical DM) 2-30-10 daily as [facility] ch mg/5 mL needed for syrup Congestion /Allergies . bromphenira 2021-04 Yes [id number] 5mL Take 5 mL [facility] mine-pseudo 0-10 by mouth 4 it y of ephedrine-D 00:00: (four) [place] ([facility] 00 times Medical DM) 2-30-10 daily as [facility] ch mg/5 mL needed for syrup Congestion /Allergies . bromphenira 2021-04 Yes [id number] 5mL Take 5 mL [facility] mine-pseudo 0-10 by mouth 4 it y of ephedrine-D 00:00: (four) [place] ([facility] 00 times Medical DM) 2-30-10 daily as [facility] ch mg/5 mL needed for syrup Congestion /Allergies . bromphenira 2021-04 Yes [id number] 5mL Take 5 mL [facility] mine-pseudo 0-10 by mouth 4 it y of ephedrine-D 00:00: (four) [place] ([facility] 00 times Medical DM) 2-30-10 daily as [facility] ch mg/5 mL needed for syrup Congestion /Allergies . bromphenira 2021-04 Yes [id number] 5mL Take 5 mL [facility] mine-pseudo 0-10 by mouth 4 it y of ephedrine-D 00:00: (four) [place] ([facility] 00 times Medical DM) 2-30-10 daily as [facility] ch mg/5 mL needed for syrup Congestion /Allergies . bromphenira 2021-04 Yes [id number] 5mL Take 5 mL [facility] mine-pseudo 0-10 by mouth 4 it y of ephedrine-D 00:00: (four) [place] ([facility] 00 times Medical DM) 2-30-10 daily as [facility] ch mg/5 mL needed for syrup Congestion /Allergies . bromphenira 2021-04 Yes [id number] 5mL Take 5 mL [facility] mine-pseudo 0-10 by mouth 4 it y of ephedrine-D 00:00: (four) [place] ([facility] 00 times Medical DM) 2-30-10 daily as [facility] ch mg/5 mL needed for syrup Congestion /Allergies . bromphenira 2021-04 Yes [id number] 5mL Take 5 mL [facility] mine-pseudo 0-10 by mouth 4 it y of ephedrine-D 00:00: (four) [place] ([facility] 00 times Medical DM) 2-30-10 daily as [facility] ch mg/5 mL needed for syrup Congestion /Allergies . bromphenira 2021-04 Yes [id number] 5mL Take 5 mL [facility] mine-pseudo 0-10 by mouth 4 it y of ephedrine-D 00:00: (four) [place] ([facility]OMF[facility] 00 times Medical DM) 2-30-10 daily as [facility] ch mg/5 mL needed for syrup Congestion /Allergies . bromphenira 2021-04 Yes [id number] 5mL Take 5 mL [facility] mine-pseudo 0-10 by mouth 4 it y of ephedrine-D 00:00: (four) [place] ([facility] 00 times Medical DM) 2-30-10 daily as [facility] ch mg/5 mL needed for syrup Congestion /Allergies . bromphenira 2021-04 Yes [id number] 5mL Take 5 mL [facility] mine-pseudo 0-10 by mouth 4 it y of ephedrine-D 00:00: (four) [place] ([facility] 00 times Medical DM) 2-30-10 daily as [facility] ch mg/5 mL needed for syrup Congestion /Allergies . bromphenira 2021-04 Yes [id number] 5mL Take 5 mL [facility] mine-pseudo 0-10 by mouth 4 it y of ephedrine-D 00:00: (four) [place] ([facility] 00 times Medical DM) 2-30-10 daily as [facility] ch mg/5 mL needed for syrup Congestion /Allergies . bromphenira 2021-04 Yes [id number] 5mL Take 5 mL [facility] mine-pseudo 0-10 by mouth 4 it y of ephedrine-D 00:00: (four) [place] ([facility] 00 times Medical DM) 2-30-10 daily as [facility] ch mg/5 mL needed for syrup Congestion /Allergies . bromphenira 2021-04 Yes [id number] 5mL Take 5 mL [facility] mine-pseudo 0-10 by mouth 4 it y of ephedrine-D 00:00: (four) [place] ([facility] 00 times Medical DM) 2-30-10 daily as [facility] ch mg/5 mL needed for syrup Congestion /Allergies . bromphenira 2021-04 Yes [id number] 5mL Take 5 mL [facility] mine-pseudo 0-10 by mouth 4 it y of ephedrine-D 00:00: (four) [place] ([facility] 00 times Medical DM) 2-30-10 daily as [facility] ch mg/5 mL needed for syrup Congestion /Allergies . bromphenira 2021-04 Yes [id number] 5mL Take 5 mL [facility] mine-pseudo 0-10 by mouth 4 it y of ephedrine-D 00:00: (four) [place] ([facility] 00 times Medical DM) 2-30-10 daily as [facility] ch mg/5 mL needed for syrup Congestion /Allergies . bromphenira 2021-04 Yes [id number] 5mL Take 5 mL [facility] mine-pseudo 0-10 by mouth 4 it y of ephedrine-D 00:00: (four) [place] ([facility] 00 times Medical DM) 2-30-10 daily as [facility] ch mg/5 mL needed for syrup Congestion /Allergies . bromphenira 2021-04 Yes [id number] 5mL Take 5 mL [facility] mine-pseudo 0-10 by mouth 4 it y of ephedrine-D 00:00: (four) [place] ([facility] 00 times Medical DM) 2-30-10 daily as [facility] ch mg/5 mL needed for syrup Congestion /Allergies . bromphenira 2021-04 Yes [id number] 5mL Take 5 mL [facility] mine-pseudo 0-10 by mouth 4 it y of ephedrine-D 00:00: (four) [place] ([facility] 00 times Medical DM) 2-30-10 daily as [facility] ch mg/5 mL needed for syrup Congestion /Allergies . bromphenira 2021-04 Yes [id number] 5mL Take 5 mL [facility] mine-pseudo 0-10 by mouth 4 it y of ephedrine-D 00:00: (four) [place] ([facility]OMF[facility] 00 times Medical DM) 2-30-10 daily as [facility] ch mg/5 mL needed for syrup Congestion /Allergies . bromphenira 2021-04 Yes [id number] 5mL Take 5 mL [facility] mine-pseudo 0-10 by mouth 4 it y of ephedrine-D 00:00: (four) [place] ([facility] 00 times Medical DM) 2-30-10 daily as Bran ch mg/5 mL needed for syrup Congestion /Allergies . bromphenira 2021-04 Yes [id number] 5mL Take 5 mL [facility] mine-pseudo 0-10 by mouth 4 it y of ephedrine-D 00:00: (four) [place] ([facility] 00 times Medical DM) 2-30-10 daily as Bran ch mg/5 mL needed for syrup Congestion /Allergies . bromphenira 2021-04 Yes [id number] 5mL Take 5 mL [facility] mine-pseudo 0-10 by mouth 4 it y of ephedrine-D 00:00: (four) [place] ([facility] 00 times Medical DM) 2-30-10 daily as Bran ch mg/5 mL needed for syrup Congestion /Allergies . bromphenira 2021-04 Yes [id number] 5mL Take 5 mL [facility] mine-pseudo 0-10 by mouth 4 it y of ephedrine-D 00:00: (four) [place] ([facility] 00 times Medical DM) 2-30-10 daily as [facility] ch mg/5 mL needed for syrup Congestion /Allergies . bromphenira 2021-04 Yes [id number] 5mL Take 5 mL [facility] mine-pseudo 0-10 by mouth 4 it y of ephedrine-D 00:00: (four) [place] ([facility] 00 times Medical DM) 2-30-10 daily as Bran ch mg/5 mL needed for syrup Congestion /Allergies . bromphenira 2021-04 Yes [id number] 5mL Take 5 mL [facility] mine-pseudo 0-10 by mouth 4 it y of ephedrine-D 00:00: (four) [place] ([facility] 00 times Medical DM) 2-30-10 daily as Bran ch mg/5 mL needed for syrup Congestion /Allergies . bromphenira 2021-04- No [id number] 5mL Take 5 mL [facility] mine-pseudo 0-10 02-18 by mouth 4 i ty of ephedrine-D 00:00: 00:00 (four) [place] [facility] (BROMFED 00 :00 times Medical DM) 2-30-10 daily as Bran ch mg/5 mL needed for syrup Congestion /Allergies . benzonatate 2021-04 No [id number] 200mg Take 2 [facility] 100 mg 0-10 11-03 capsules ity of capsule 00:00: 00:00 by mouth [place] 00 :00 every 8 Medical (eight) Branch hours as needed for Cough. ondansetron 2021-04- No [id number] 4mg Take 1 [facility] 4 mg 0-10 10-25 tablet by ity of disintegrat 00:00: 00:00 [place] :00 every 8 [facility] l (eight) Branch hours as needed for Nausea and Vomiting (N/V). fluticasone 2021-04 Yes [id number] 1{spray Use 1 [facility] propionate 0-06 } [place] in ity o f 50 00:00: each [place] mcg/actuati 00 nostril in Me dical on nasal the Branch spray morning. Use 2 spray(s) in each nostril once daily fluticasone 2021-04 Yes [id number] 1{spray Use 1 [facility] propionate 0-06 } [place] in ity o f 50 00:00: each [place] mcg/actuati 00 nostril in Me dical on nasal the Branch spray morning. Use 2 spray(s) in each nostril once daily fluticasone 2021-04- No [id number] 1{spray Use 1 [facility] propionate 0-06 10-11 } [place] in ity of 50 00:00: 00:00 each [place] mcg/actuati 00 :00 nostril in Me dical on nasal the Branch spray morning. Use 2 spray(s) in each nostril once daily fluticasone 2021-04- No [id number] 1{spray Use 1 [facility] propionate 0-06 10-11 } [place] in ity of 50 00:00: 00:00 each [place] mcg/actuati 00 :00 nostril in Me dical on nasal the Branch spray morning. Use 2 spray(s) in each nostril once daily fluticasone 2021-04- No [id number] 1{spray Use 1 [facility] propionate 0-06 10-11 } [place] in ity of 50 00:00: 00:00 each [place] mcg/actuati 00 :00 nostril in Me dical on nasal the Branch spray morning. Use 2 spray(s) in each nostril once daily fluticasone 2021-04- No [id number] 1{spray Use 1 [facility] propionate 0-06 10-11 } [place] in ity of 50 00:00: 00:00 each [place] mcg/actuati 00 :00 nostril in [place] dical on nasal the Branch spray morning. Use 2 spray(s) in each nostril once daily nov 2021 Yes APPLY [facility] betamethaso 9-27 CREAM ity of ne 00:00: TOPICALLY [place] dipropionat 00 TO Medical e 0.05 % AFFECTED Branch cream AREA THREE TIMES DAILY nov 2021 Yes APPLY [facility] betamethaso 9-27 CREAM ity of ne 00:00: TOPICALLY [place] dipropionat 00 TO Medical e 0.05 % AFFECTED Branch cream AREA THREE TIMES DAILY nov 2021 Yes APPLY [facility] betamethaso 9-27 CREAM ity of ne 00:00: TOPICALLY [place] dipropionat 00 TO Medical e 0.05 % AFFECTED Branch cream AREA THREE TIMES DAILY nov 2021 Yes APPLY [facility] betamethaso 9-27 CREAM ity of ne 00:00: TOPICALLY [place] dipropionat 00 TO Medical e 0.05 % AFFECTED Branch cream AREA THREE TIMES DAILY nov 2021 Yes APPLY [facility] betamethaso 9-27 CREAM ity of ne 00:00: TOPICALLY [place] dipropionat 00 TO Medical e 0.05 % AFFECTED Branch cream AREA THREE TIMES DAILY nov 2021 Yes APPLY [facility] betamethaso 9-27 CREAM ity of ne 00:00: TOPICALLY [place] dipropionat 00 TO Medical e 0.05 % AFFECTED Branch cream AREA THREE TIMES DAILY nov 2021 Yes APPLY [facility] betamethaso 9-27 CREAM ity of ne 00:00: TOPICALLY [place] dipropionat 00 TO Medical e 0.05 % AFFECTED Branch cream AREA THREE TIMES DAILY nov 2021 Yes APPLY [facility] betamethaso 9-27 CREAM ity of ne 00:00: TOPICALLY [place] dipropionat 00 TO Medical e 0.05 % AFFECTED Branch cream AREA THREE TIMES DAILY nov 2021 Yes APPLY [facility] betamethaso 9-27 CREAM ity of ne 00:00: TOPICALLY [place] dipropionat 00 TO Medical e 0.05 % AFFECTED Branch cream AREA THREE TIMES DAILY nov 2021 Yes APPLY [facility] betamethaso 9-27 CREAM ity of ne 00:00: TOPICALLY [place] dipropionat 00 TO Medical e 0.05 % AFFECTED Branch cream AREA THREE TIMES DAILY nov 2021 Yes APPLY [facility] betamethaso 9-27 CREAM ity of ne 00:00: TOPICALLY [place] dipropionat 00 TO Medical e 0.05 % AFFECTED Branch cream AREA THREE TIMES DAILY nov 2021 Yes APPLY [facility] betamethaso 9-27 CREAM ity of ne 00:00: TOPICALLY [place] dipropionat 00 TO Medical e 0.05 % AFFECTED Branch cream AREA THREE TIMES DAILY nov 2021 Yes APPLY [facility] betamethaso 9-27 CREAM ity of ne 00:00: TOPICALLY [place] dipropionat 00 TO Medical e 0.05 % AFFECTED Branch cream AREA THREE TIMES DAILY nov 2021 Yes APPLY [facility] betamethaso 9-27 CREAM ity of ne 00:00: TOPICALLY [place] dipropionat 00 TO Medical e 0.05 % AFFECTED Branch cream AREA THREE TIMES DAILY nov 2021 Yes APPLY [facility] betamethaso 9-27 CREAM ity of ne 00:00: TOPICALLY [place] dipropionat 00 TO Medical e 0.05 % AFFECTED Branch cream AREA THREE TIMES DAILY nov 2021 Yes APPLY [facility] betamethaso 9-27 CREAM ity of ne 00:00: TOPICALLY [place] dipropionat 00 TO Medical e 0.05 % AFFECTED Branch cream AREA THREE TIMES DAILY nov 2021 Yes APPLY [facility] betamethaso 9-27 CREAM ity of ne 00:00: TOPICALLY [place] dipropionat 00 TO Medical e 0.05 % AFFECTED Branch cream AREA THREE TIMES DAILY nov 2021 Yes APPLY [facility] betamethaso 9-27 CREAM ity of ne 00:00: TOPICALLY [place] dipropionat 00 TO Medical e 0.05 % AFFECTED Branch cream AREA THREE TIMES DAILY nov 2021 Yes APPLY [facility] betamethaso 9-27 CREAM ity of ne 00:00: TOPICALLY [place] dipropionat 00 TO Medical e 0.05 % AFFECTED Branch cream AREA THREE TIMES DAILY nov 2021 Yes APPLY [facility] betamethaso 9-27 CREAM ity of ne 00:00: TOPICALLY [place] dipropionat 00 TO Medical e 0.05 % AFFECTED Branch cream AREA THREE TIMES DAILY nov 2021 Yes APPLY [facility] betamethaso 9-27 CREAM ity of ne 00:00: TOPICALLY [place] dipropionat 00 TO Medical e 0.05 % AFFECTED Branch cream AREA THREE TIMES DAILY nov 2021 Yes APPLY [facility] betamethaso 9-27 CREAM ity of ne 00:00: TOPICALLY [place] dipropionat 00 TO Medical e 0.05 % AFFECTED Branch cream AREA THREE TIMES DAILY nov 2021 Yes APPLY [facility] betamethaso 9-27 CREAM ity of ne 00:00: TOPICALLY [place] dipropionat 00 TO Medical e 0.05 % AFFECTED Branch cream AREA THREE TIMES DAILY nov 2021 Yes APPLY [facility] betamethaso 9-27 CREAM ity of ne 00:00: TOPICALLY [place] dipropionat 00 TO Medical e 0.05 % AFFECTED Branch cream AREA THREE TIMES DAILY nov 2021 Yes APPLY [facility] betamethaso 9-27 CREAM ity of ne 00:00: TOPICALLY [place] dipropionat 00 TO Medical e 0.05 % AFFECTED Branch cream AREA THREE TIMES DAILY nov 2021 Yes APPLY [facility] betamethaso 9-27 CREAM ity of ne 00:00: TOPICALLY [place] dipropionat 00 TO Medical e 0.05 % AFFECTED Branch cream AREA THREE TIMES DAILY nov 2021 Yes APPLY [facility] betamethaso 9-27 CREAM ity of ne 00:00: TOPICALLY [place] dipropionat 00 TO Medical e 0.05 % AFFECTED Branch cream AREA THREE TIMES DAILY nov 2021 Yes APPLY [facility] betamethaso 9-27 CREAM ity of ne 00:00: TOPICALLY [place] dipropionat 00 TO Medical e 0.05 % AFFECTED Branch cream AREA THREE TIMES DAILY nov 2021 Yes APPLY [facility] betamethaso 9-27 CREAM ity of ne 00:00: TOPICALLY [place] dipropionat 00 TO Medical e 0.05 % AFFECTED Branch cream AREA THREE TIMES DAILY nov 2021 Yes APPLY [facility] betamethaso 9-27 CREAM ity of ne 00:00: TOPICALLY [place] dipropionat 00 TO Medical e 0.05 % AFFECTED Branch cream AREA THREE TIMES DAILY nov 2021 Yes APPLY [facility] betamethaso 9-27 CREAM ity of ne 00:00: TOPICALLY [place] dipropionat 00 TO Medical e 0.05 % AFFECTED Branch cream AREA THREE TIMES DAILY nov 2021 Yes APPLY [facility] betamethaso 9-27 CREAM ity of ne 00:00: TOPICALLY [place] dipropionat 00 TO Medical e 0.05 % AFFECTED Branch cream AREA THREE TIMES DAILY nov 2021 Yes APPLY [facility] betamethaso 9-27 CREAM ity of ne 00:00: TOPICALLY [place] dipropionat 00 TO Medical e 0.05 % AFFECTED Branch cream AREA THREE TIMES DAILY nov 2021 Yes APPLY [facility] betamethaso 9-27 CREAM ity of ne 00:00: TOPICALLY [place] dipropionat 00 TO Medical e 0.05 % AFFECTED Branch cream AREA THREE TIMES DAILY nov 2021 Yes APPLY [facility] betamethaso 9-27 CREAM ity of ne 00:00: TOPICALLY [place] dipropionat 00 TO Medical e 0.05 % AFFECTED Branch cream AREA THREE TIMES DAILY nov 2021 Yes APPLY [facility] betamethaso 9-27 CREAM ity of ne 00:00: TOPICALLY [place] dipropionat 00 TO Medical e 0.05 % AFFECTED Branch cream AREA THREE TIMES DAILY nov 2021 Yes APPLY [facility] betamethaso 9-27 CREAM ity of ne 00:00: TOPICALLY [place] dipropionat 00 TO Medical e 0.05 % AFFECTED Branch cream AREA THREE TIMES DAILY nov 2021 Yes APPLY [facility] betamethaso 9-27 CREAM ity of ne 00:00: TOPICALLY [place] dipropionat 00 TO Medical e 0.05 % AFFECTED Branch cream AREA THREE TIMES DAILY nov 2021 Yes APPLY [facility] betamethaso 9-27 CREAM ity of ne 00:00: TOPICALLY [place] dipropionat 00 TO Medical e 0.05 % AFFECTED Branch cream AREA THREE TIMES DAILY nov 2021 Yes APPLY [facility] betamethaso 9-27 CREAM ity of ne 00:00: TOPICALLY [place] dipropionat 00 TO Medical e 0.05 % AFFECTED Branch cream AREA THREE TIMES DAILY nov 2021 Yes APPLY [facility] betamethaso 9-27 CREAM ity of ne 00:00: TOPICALLY [place] dipropionat 00 TO Medical e 0.05 % AFFECTED Branch cream AREA THREE TIMES DAILY nov 2021 Yes APPLY [facility] betamethaso 9-27 CREAM ity of ne 00:00: TOPICALLY [place] dipropionat 00 TO Medical e 0.05 % AFFECTED Branch cream AREA THREE TIMES DAILY nov 2021 Yes APPLY [facility] betamethaso 9-27 CREAM ity of ne 00:00: TOPICALLY [place] dipropionat 00 TO Medical e 0.05 % AFFECTED Branch cream AREA THREE TIMES DAILY nov 2021 Yes APPLY [facility] betamethaso 9-27 CREAM ity of ne 00:00: TOPICALLY [place] dipropionat 00 TO Medical e 0.05 % AFFECTED Branch cream AREA THREE TIMES DAILY nov 2021 Yes APPLY [facility] betamethaso 9-27 CREAM ity of ne 00:00: TOPICALLY [place] dipropionat 00 TO Medical e 0.05 % AFFECTED Branch cream AREA THREE TIMES DAILY nov 2021 Yes APPLY [facility] betamethaso 9-27 CREAM ity of ne 00:00: TOPICALLY [place] dipropionat 00 TO Medical e 0.05 % AFFECTED Branch cream AREA THREE TIMES DAILY nov 2021 Yes APPLY [facility] betamethaso 9-27 CREAM ity of ne 00:00: TOPICALLY [place] dipropionat 00 TO Medical e 0.05 % AFFECTED Branch cream AREA THREE TIMES DAILY nov 2021 Yes APPLY [facility] betamethaso 9-27 CREAM ity of ne 00:00: TOPICALLY [place] dipropionat 00 TO Medical e 0.05 % AFFECTED Branch cream AREA THREE TIMES DAILY nov 2021 Yes APPLY [facility] betamethaso 9-27 CREAM ity of ne 00:00: TOPICALLY [place] dipropionat 00 TO Medical e 0.05 % AFFECTED Branch cream AREA THREE TIMES DAILY nov 2021 Yes APPLY [facility] betamethaso 9-27 CREAM ity of ne 00:00: TOPICALLY [place] dipropionat 00 TO Medical e 0.05 % AFFECTED Branch cream AREA THREE TIMES DAILY nov 2021 Yes APPLY [facility] betamethaso 9-27 CREAM ity of ne 00:00: TOPICALLY [place] dipropionat 00 TO Medical e 0.05 % AFFECTED Branch cream AREA THREE TIMES DAILY nov 2021 Yes APPLY [facility] betamethaso 9-27 CREAM ity of ne 00:00: TOPICALLY [place] dipropionat 00 TO Medical e 0.05 % AFFECTED Branch cream AREA THREE TIMES DAILY nov 2021 Yes APPLY [facility] betamethaso 9-27 CREAM ity of ne 00:00: TOPICALLY [place] dipropionat 00 TO Medical e 0.05 % AFFECTED Branch cream AREA THREE TIMES DAILY nov 2021 Yes APPLY [facility] betamethaso 9-27 CREAM ity of ne 00:00: TOPICALLY [place] dipropionat 00 TO Medical e 0.05 % AFFECTED Branch cream AREA THREE TIMES DAILY nov 2021 Yes APPLY [facility] betamethaso 9-27 CREAM ity of ne 00:00: TOPICALLY [place] dipropionat 00 TO Medical e 0.05 % AFFECTED Branch cream AREA THREE TIMES DAILY nov 2021 Yes APPLY [facility] betamethaso 9-27 CREAM ity of ne 00:00: TOPICALLY [place] dipropionat 00 TO Medical e 0.05 % AFFECTED Branch cream AREA THREE TIMES DAILY nov 2021 Yes APPLY [facility] betamethaso 9-27 CREAM ity of ne 00:00: TOPICALLY [place] dipropionat 00 TO Medical e 0.05 % AFFECTED Branch cream AREA THREE TIMES DAILY nov 2021 Yes APPLY [facility] betamethaso 9-27 CREAM ity of ne 00:00: TOPICALLY [place] dipropionat 00 TO Medical e 0.05 % AFFECTED Branch cream AREA THREE TIMES DAILY nov 2021 Yes APPLY [facility] betamethaso 9-27 CREAM ity of ne 00:00: TOPICALLY [place] dipropionat 00 TO Medical e 0.05 % AFFECTED Branch cream AREA THREE TIMES DAILY nov 2021 Yes APPLY [facility] betamethaso 9-27 CREAM ity of ne 00:00: TOPICALLY [place] dipropionat 00 TO Medical e 0.05 % AFFECTED Branch cream AREA THREE TIMES DAILY nov 2021 Yes APPLY [facility] betamethaso 9-27 CREAM ity of ne 00:00: TOPICALLY [place] dipropionat 00 TO Medical e 0.05 % AFFECTED Branch cream AREA THREE TIMES DAILY nov 2021 Yes APPLY [facility] betamethaso 9-27 CREAM ity of ne 00:00: TOPICALLY [place] dipropionat 00 TO Medical e 0.05 % AFFECTED Branch cream AREA THREE TIMES DAILY nov 2021 Yes APPLY [facility] betamethaso 9-27 CREAM ity of ne 00:00: TOPICALLY [place] dipropionat 00 TO Medical e 0.05 % AFFECTED Branch cream AREA THREE TIMES DAILY nov 2021 Yes APPLY [facility] betamethaso 9-27 CREAM ity of ne 00:00: TOPICALLY [place] dipropionat 00 TO Medical e 0.05 % AFFECTED Branch cream AREA THREE TIMES DAILY nov 2021 Yes APPLY [facility] betamethaso 9-27 CREAM ity of ne 00:00: TOPICALLY [place] dipropionat 00 TO Medical e 0.05 % AFFECTED Branch cream AREA THREE TIMES DAILY nov 2021 Yes APPLY [facility] betamethaso 9-27 CREAM ity of ne 00:00: TOPICALLY [place] dipropionat 00 TO Medical e 0.05 % AFFECTED Branch cream AREA THREE TIMES DAILY nov 2021 Yes APPLY [facility] betamethaso 9-27 CREAM ity of ne 00:00: TOPICALLY [place] dipropionat 00 TO Medical e 0.05 % AFFECTED Branch cream AREA THREE TIMES DAILY nov 2021 Yes APPLY [facility] betamethaso 9-27 CREAM ity of ne 00:00: TOPICALLY [place] dipropionat 00 TO Medical e 0.05 % AFFECTED Branch cream AREA THREE TIMES DAILY nov 2021 Yes APPLY [facility] betamethaso 9-27 CREAM ity of ne 00:00: TOPICALLY [place] dipropionat 00 TO Medical e 0.05 % AFFECTED Branch cream AREA THREE TIMES DAILY nov 2021 Yes APPLY [facility] betamethaso 9-27 CREAM ity of ne 00:00: TOPICALLY [place] dipropionat 00 TO Medical e 0.05 % AFFECTED Branch cream AREA THREE TIMES DAILY nov 2021 Yes APPLY [facility] betamethaso 9-27 CREAM ity of ne 00:00: TOPICALLY [place] dipropionat 00 TO Medical e 0.05 % AFFECTED Branch cream AREA THREE TIMES DAILY nov 2021 Yes APPLY [facility] betamethaso 9-27 CREAM ity of ne 00:00: TOPICALLY [place] dipropionat 00 TO Medical e 0.05 % AFFECTED Branch cream AREA THREE TIMES DAILY nov 2021 Yes APPLY [facility] betamethaso 9-27 CREAM ity of ne 00:00: TOPICALLY [place] dipropionat 00 TO Medical e 0.05 % AFFECTED Branch cream AREA THREE TIMES DAILY nov 2021 Yes APPLY [facility] betamethaso 9-27 CREAM ity of ne 00:00: TOPICALLY [place] dipropionat 00 TO Medical e 0.05 % AFFECTED Branch cream AREA THREE TIMES DAILY nov 2021 Yes APPLY [facility] betamethaso 9-27 CREAM ity of ne 00:00: TOPICALLY [place] dipropionat 00 TO Medical e 0.05 % AFFECTED Branch cream AREA THREE TIMES DAILY nov 2021 Yes APPLY [facility] betamethaso 9-27 CREAM ity of ne 00:00: TOPICALLY [place] dipropionat 00 TO Medical e 0.05 % AFFECTED Branch cream AREA THREE TIMES DAILY nov 2021 Yes APPLY [facility] betamethaso 9-27 CREAM ity of ne 00:00: TOPICALLY [place] dipropionat 00 TO Medical e 0.05 % AFFECTED Branch cream AREA THREE TIMES DAILY nov 2021 Yes APPLY [facility] betamethaso 9-27 CREAM ity of ne 00:00: TOPICALLY [place] dipropionat 00 TO Medical e 0.05 % AFFECTED Branch cream AREA THREE TIMES DAILY nov 2021 Yes APPLY [facility] betamethaso 9-27 CREAM ity of ne 00:00: TOPICALLY [place] dipropionat 00 TO Medical e 0.05 % AFFECTED Branch cream AREA THREE TIMES DAILY nov 2021 Yes APPLY [facility] betamethaso 9-27 CREAM ity of ne 00:00: TOPICALLY [place] dipropionat 00 TO Medical e 0.05 % AFFECTED Branch cream AREA THREE TIMES DAILY nov 2021 Yes APPLY [facility] betamethaso 9-27 CREAM ity of ne 00:00: TOPICALLY [place] dipropionat 00 TO Medical e 0.05 % AFFECTED Branch cream AREA THREE TIMES DAILY nov 2021 Yes APPLY [facility] betamethaso 9-27 CREAM ity of ne 00:00: TOPICALLY [place] dipropionat 00 TO Medical e 0.05 % AFFECTED Branch cream AREA THREE TIMES DAILY nov 2021 Yes APPLY [facility] betamethaso 9-27 CREAM ity of ne 00:00: TOPICALLY [place] dipropionat 00 TO Medical e 0.05 % AFFECTED Branch cream AREA THREE TIMES DAILY nov 2021 Yes APPLY [facility] betamethaso 9-27 CREAM ity of ne 00:00: TOPICALLY [place] dipropionat 00 TO Medical e 0.05 % AFFECTED Branch cream AREA THREE TIMES DAILY nov 2021 Yes APPLY [facility] betamethaso 9-27 CREAM ity of ne 00:00: TOPICALLY [place] dipropionat 00 TO Medical e 0.05 % AFFECTED Branch cream AREA THREE TIMES DAILY atropine 1 Yes atropine 1 U nivers % 9-26 % eye ity of ophthalmic 16:03: drops [place] drops 24 Medical Branch bismuth-met 2021- Yes Pylera 140 [facility] ronidazole- 9-26 mg-125 ity of tetracyclin 16:03: mg-125 mg [place] (PYLERA) 24 capsule Medica l 140-125-125 Branch mg per capsule doxycycline Yes doxycyclin [facility] hyclate 100 9-26 e hyclate ity of mg capsule 16:03: 100 mg [place] 24 capsule Medical Branch atropine 1 Yes atropine 1 U nivers % 9-26 % eye ity of ophthalmic 16:03: drops [place] drops 24 Medical Branch bismuth-met Yes Pylera 140 [facility] ronidazole- 9-26 mg-125 ity of tetracyclin 16:03: mg-125 mg [place] (PYLERA) 24 capsule Medica l 140-125-125 Branch mg per capsule doxycycline Yes doxycyclin [facility] hyclate 100 9-26 e hyclate ity of mg capsule 16:03: 100 mg [place] 24 capsule Medical Branch atropine 1 Yes atropine 1 U nivers % 9-26 % eye ity of ophthalmic 16:03: drops [place] drops 24 Medical Branch bismuth-met Yes Pylera 140 [facility] ronidazole- 9-26 mg-125 ity of tetracyclin 16:03: mg-125 mg [place] (PYLERA) 24 capsule Medica l 140-125-125 Branch mg per capsule doxycycline Yes doxycyclin [facility] hyclate 100 9-26 e hyclate ity of mg capsule 16:03: 100 mg [place] 24 capsule Medical Branch atropine 1 Yes atropine 1 U nivers % 9-26 % eye ity of ophthalmic 16:03: drops [place] drops 24 Medical Branch bismuth-met Yes Pylera 140 [facility] ronidazole- 9-26 mg-125 ity of tetracyclin 16:03: mg-125 mg [place] (PYLERA) 24 capsule Medica l 140-125-125 Branch mg per capsule doxycycline Yes doxycyclin [facility] hyclate 100 9-26 e hyclate ity of mg capsule 16:03: 100 mg [place] 24 capsule Medical Branch atropine 1 Yes atropine 1 U nivers % 9-26 % eye ity of ophthalmic 16:03: drops [place] drops 24 [facility]- Yes P[place] 140 [facility] ronidazole- 9-26 mg-125 ity of tetracyclin 16:03: mg-125 mg [place] (PYLERA) 24 capsule Medica l 140-125-125 Branch mg per capsule doxycycline Yes doxycyclin [facility] hyclate 100 9-26 e hyclate ity of mg capsule 16:03: 100 mg [place] capsule Medical Branch atropine 1 Yes atropine 1 U nivers % 9-26 % eye ity of ophthalmic 16:03: drops [place] drops 24 [facility] P[facility] 140 [facility] ronidazole- 9-26 mg-125 ity of tetracyclin 16:03: mg-125 mg [place] (PYLERA) 24 capsule Medica l 140-125-125 Branch mg per capsule doxycycline Yes doxycyclin [facility] hyclate 100 9-26 e hyclate ity of mg capsule 16:03: 100 mg [place] capsule Medical Branch atropine 1 Yes atropine 1 U nivers % 9-26 % eye ity of ophthalmic 16:03: drops [place] drops 24 Medical Branch [facility] Yes Pylera 140 [facility] ronidazole- 9-26 mg-125 ity of tetracyclin 16:03: mg-125 mg [place] (PYLERA) 24 capsule Medica l 140-125-125 Branch mg per capsule doxycycline Yes doxycyclin [facility] hyclate 100 9-26 e hyclate ity of mg capsule 16:03: 100 mg [place] capsule Medical Branch atropine 1 Yes atropine 1 U nivers % 9-26 % eye ity of ophthalmic 16:03: drops [place] drops 24 [facility] Yes Pyl[place] 140 [facility] ronidazole- 9-26 mg-125 ity of tetracyclin 16:03: mg-125 mg [place] (PYLERA) 24 capsule Medica l 140-125-125 Branch mg per capsule doxycycline Yes doxycyclin [facility] hyclate 100 9-26 e hyclate ity of mg capsule 16:03: 100 mg [place] capsule Medical Branch atropine 1 Yes atropine 1 U nivers % 9-26 % eye ity of ophthalmic 16:03: drops [place] drops 24 Medical [facility] Yes Pylera 140 [facility] ronidazole- 9-26 mg-125 ity of tetracyclin 16:03: mg-125 mg [place] (PYLERA) 24 capsule Medica l 140-125-125 Branch mg per capsule doxycycline Yes doxycyclin [facility] hyclate 100 9-26 e hyclate ity of mg capsule 16:03: 100 mg [place] [address] capsule Medical Branch atropine 1 Yes atropine 1 U nivers % 9-26 % eye ity of ophthalmic 16:03: drops [place] drops [facility] P[facility] 140 [facility] ronidazole- 9-26 mg-125 ity of tetracyclin 16:03: mg-125 mg [place] (PYLERA) 24 capsule Medica l 140-125-125 Branch mg per capsule doxycycline Yes doxycyclin [facility] hyclate 100 9-26 e hyclate ity of mg capsule 16:03: 100 mg [place] [address] capsule Medical Branch atropine 1 Yes atropine 1 U nivers % 9-26 % eye ity of ophthalmic 16:03: drops [place] drops 24 [facility] Yes Pylera 140 [facility] ronidazole- 9-26 mg-125 ity of tetracyclin 16:03: mg-125 mg [place] (PYLERA) 24 capsule Medica l 140-125-125 Branch mg per capsule doxycycline Yes doxycyclin [facility] hyclate 100 9-26 e hyclate ity of mg capsule 16:03: 100 mg [place] [address] capsule Medical Branch atropine 1 Yes atropine 1 U nivers % 9-26 % eye ity of ophthalmic 16:03: drops [place] drops [facility] Pylera 140 [facility] ronidazole- 9-26 mg-125 ity of tetracyclin 16:03: mg-125 mg [place] (PYLERA) 24 capsule Medica l 140-125-125 Branch mg per capsule doxycycline Yes doxycyclin [facility] hyclate 100 9-26 e hyclate ity of mg capsule 16:03: 100 mg [place] [address] capsule Medical Branch atropine 1 Yes atropine 1 U nivers % 9-26 % eye ity of ophthalmic 16:03: drops [place] drops 24 Medical Branch [facility] Yes Pylera 140 [facility] ronidazole- 9-26 mg-125 ity of tetracyclin 16:03: mg-125 mg [place] (PYLERA) 24 capsule Medica l 140-125-125 Branch mg per capsule doxycycline Yes doxycyclin [facility] hyclate 100 9-26 e hyclate ity of mg capsule 16:03: 100 mg [place] [address] capsule Medical Branch atropine 1 Yes atropine 1 U nivers % 9-26 % eye ity of ophthalmic 16:03: drops [place] drops 24 Medical Branch [facility] Yes Pylera 140 [facility] ronidazole- 9-26 mg-125 ity of tetracyclin 16:03: mg-125 mg [place] (PYLERA) 24 capsule Medica l 140-125-125 Branch mg per capsule doxycycline Yes doxycyclin [facility] hyclate 100 9-26 e hyclate ity of mg capsule 16:03: 100 mg [place] [address] capsule Medical Branch atropine 1 Yes atropine 1 U nivers % 9-26 % eye ity of ophthalmic 16:03: drops [place] drops 24 [facility] Yes Pylera 140 [facility] ronidazole- 9-26 mg-125 ity of tetracyclin 16:03: mg-125 mg [place] (PYLERA) 24 capsule Medica l 140-125-125 Branch mg per capsule doxycycline Yes doxycyclin [facility] hyclate 100 9-26 e hyclate ity of mg capsule 16:03: 100 mg [place] [address] capsule Medical Branch atropine 1 Yes atropine 1 U nivers % 9-26 % eye ity of ophthalmic 16:03: drops [place] drops 24 Medical Branch [facility] Yes Pylera 140 [facility] ronidazole- 9-26 mg-125 ity of tetracyclin 16:03: mg-125 mg [place] (PYLERA) 24 capsule Medica l 140-125-125 Branch mg per capsule doxycycline Yes doxycyclin [facility] hyclate 100 9-26 e hyclate ity of mg capsule 16:03: 100 mg [place] [address] capsule Medical Branch atropine 1 Yes atropine 1 U nivers % 9-26 % eye ity of ophthalmic 16:03: drops [place] drops 24 [facility] Yes Pylera 140 [facility] ronidazole- 9-26 mg-125 ity of tetracyclin 16:03: mg-125 mg [place] (PYLERA) 24 capsule Medica l 140-125-125 Branch mg per capsule doxycycline Yes doxycyclin [facility] hyclate 100 9-26 e hyclate ity of mg capsule 16:03: 100 mg [place] [address] capsule Medical Branch atropine 1 Yes atropine 1 U nivers % 9-26 % eye ity of ophthalmic 16:03: drops [place] drops [address] [place] [address] Yes Pylera 140 [facility] ronidazole- 9-26 mg-125 ity of tetracyclin 16:03: mg-125 mg [place] (PYLERA) 24 capsule Medica l 140-125-125 Branch mg per capsule doxycycline Yes doxycyclin [facility] hyclate 100 9-26 e hyclate ity of mg capsule 16:03: 100 mg [place] [address] capsule Medical Branch atropine 1 Yes atropine 1 U nivers % 9-26 % eye ity of ophthalmic 16:03: drops [place] drops [address] [place] [address] Yes Pylera 140 [facility] ronidazole- 9-26 mg-125 ity of tetracyclin 16:03: mg-125 mg [place] (PYLERA) 24 capsule Medica l 140-125-125 Branch mg per capsule doxycycline Yes doxycyclin [facility] hyclate 100 9-26 e hyclate ity of mg capsule 16:03: 100 mg [place] [address] capsule Medical Branch atropine 1 Yes atropine 1 U nivers % 9-26 % eye ity of ophthalmic 16:03: drops [place] drops [facility] Pylera 140 [facility] ronidazole- 9-26 mg-125 ity of tetracyclin 16:03: mg-125 mg [place] (PYLERA) 24 capsule Medica l 140-125-125 Branch mg per capsule doxycycline Yes doxycyclin [facility] hyclate 100 9-26 e hyclate ity of mg capsule 16:03: 100 mg [place] [address] capsule Medical Branch atropine 1 Yes atropine 1 U nivers % 9-26 % eye ity of ophthalmic 16:03: drops [place] drops 24 Medical Branch [facility] Yes Pylera 140 [facility] ronidazole- 9-26 mg-125 ity of tetracyclin 16:03: mg-125 mg [place] (PYLERA) 24 capsule Medica l 140-125-125 Branch mg per capsule doxycycline Yes doxycyclin [facility] hyclate 100 9-26 e hyclate ity of mg capsule 16:03: 100 mg [place] [address] capsule Medical Branch atropine 1 Yes atropine 1 U nivers % 9-26 % eye ity of ophthalmic 16:03: drops [place] drops [address] [place] [address] Yes Pylera 140 [facility] ronidazole- 9-26 mg-125 ity of tetracyclin 16:03: mg-125 mg [place] (PYLERA) 24 capsule Medica l 140-125-125 Branch mg per capsule doxycycline Yes doxycyclin [facility] hyclate 100 9-26 e hyclate ity of mg capsule 16:03: 100 mg [place] [address] capsule Medical Branch atropine 1 Yes atropine 1 U nivers % 9-26 % eye ity of ophthalmic 16:03: drops [place] drops [address] [place] [address] Yes Pylera 140 [facility] ronidazole- 9-26 mg-125 ity of tetracyclin 16:03: mg-125 mg [place] (PYLERA) 24 capsule Medica l 140-125-125 Branch mg per capsule doxycycline Yes doxycyclin [facility] hyclate 100 9-26 e hyclate ity of mg capsule 16:03: 100 mg [place] [address] capsule Medical Branch atropine 1 Yes atropine 1 U nivers % 9-26 % eye ity of ophthalmic 16:03: drops [place] drops 24 [facility] Pylera 140 [facility] ronidazole- 9-26 mg-125 ity of tetracyclin 16:03: mg-125 mg [place] (PYLERA) 24 capsule Medica l 140-125-125 Branch mg per capsule doxycycline Yes doxycyclin [facility] hyclate 100 9-26 e hyclate ity of mg capsule 16:03: 100 mg [place] 24 capsule Medical Branch atropine 1 Yes atropine 1 U nivers % 9-26 % eye ity of ophthalmic 16:03: drops [place] drops 24 Medical [facility] Yes Pylera 140 [facility] ronidazole- 9-26 mg-125 ity of tetracyclin 16:03: mg-125 mg [place] (PYLERA) 24 capsule Medica l 140-125-125 Branch mg per capsule doxycycline Yes doxycyclin [facility] hyclate 100 9-26 e hyclate ity of mg capsule 16:03: 100 mg [place] 24 capsule Medical Branch atropine 1 Yes atropine 1 U nivers % 9-26 % eye ity of ophthalmic 16:03: drops [place] drops 24 Medical [facility] Yes Pylera 140 Univers ronidazole- 9-26 mg-125 ity of tetracyclin 16:03: mg-125 mg [place] (PYLERA) 24 capsule Medica l 140-125-125 Branch mg per capsule doxycycline Yes doxycyclin [facility] hyclate 100 9-26 e hyclate ity of mg capsule 16:03: 100 mg [place] 24 capsule Medical Branch atropine 1 Yes atropine 1 U nivers % 9-26 % eye ity of ophthalmic 16:03: drops [place] drops 24 Medical Branch atropine 1 Yes atropine 1 U nivers % 9-26 % eye ity of ophthalmic 16:03: drops [place] drops 24 Medical Branch atropine 1 Yes atropine 1 U nivers % 9-26 % eye ity of ophthalmic 16:03: drops [place] drops 24 Medical Branch atropine 1 Yes atropine 1 U nivers % 9-26 % eye ity of ophthalmic 16:03: drops [place] drops 24 Medical Branch atropine 1 Yes atropine 1 U nivers % 9-26 % eye ity of ophthalmic 16:03: drops [place] drops 24 Medical Branch atropine 1 Yes atropine 1 U nivers % 9-26 % eye ity of ophthalmic 16:03: drops [place] drops 24 Medical Branch atropine 1 Yes atropine 1 U nivers % 9-26 % eye ity of ophthalmic 16:03: drops [place] drops 24 Medical Branch atropine 1 Yes atropine 1 U nivers % 9-26 % eye ity of ophthalmic 16:03: drops [place] drops 24 Medical Branch atropine 1 Yes atropine 1 U nivers % 9-26 % eye ity of ophthalmic 16:03: drops [place] drops 24 Medical Branch atropine 1 Yes atropine 1 U nivers % 9-26 % eye ity of ophthalmic 16:03: drops [place] drops 24 Medical Branch atropine 1 Yes atropine 1 U nivers % 9-26 % eye ity of ophthalmic 16:03: drops [place] drops 24 Medical Branch atropine 1 Yes atropine 1 U nivers % 9-26 % eye ity of ophthalmic 16:03: drops [place] drops 24 Medical Branch atropine 1 Yes atropine 1 U nivers % 9-26 % eye ity of ophthalmic 16:03: drops [place] drops 24 Medical Branch atropine 1 Yes atropine 1 U nivers % 9-26 % eye ity of ophthalmic 16:03: drops [place] drops 24 Medical Branch atropine 1 Yes atropine 1 U nivers % 9-26 % eye ity of ophthalmic 16:03: drops [place] drops 24 [facility] Branch atropine 1 Yes atropine 1 U nivers % 9-26 % eye ity of ophthalmic 16:03: drops [place] drops 24 Medical Branch atropine 1 Yes atropine 1 U nivers % 9-26 % eye ity of ophthalmic 16:03: drops [place] drops 24 Medical Branch atropine 1 Yes atropine 1 U nivers % 9-26 % eye ity of ophthalmic 16:03: drops [place] drops 24 Medical Branch atropine 1 Yes atropine 1 U nivers % 9-26 % eye ity of ophthalmic 16:03: drops [place] drops 24 Medical Branch atropine 1 Yes atropine 1 U nivers % 9-26 % eye ity of ophthalmic 16:03: drops [place] drops 24 Medical Branch atropine 1 Yes atropine 1 U nivers % 9-26 % eye ity of ophthalmic 16:03: drops [place] drops 24 Medical Branch atropine 1 Yes atropine 1 U nivers % 9-26 % eye ity of ophthalmic 16:03: drops [place] drops 24 Medical Branch atropine 1 Yes atropine 1 U nivers % 9-26 % eye ity of ophthalmic 16:03: drops [place] drops 24 Medical Branch atropine 1 Yes atropine 1 U nivers % 9-26 % eye ity of ophthalmic 16:03: drops [place] drops 24 Medical Branch atropine 1 Yes atropine 1 U nivers % 9-26 % eye ity of ophthalmic 16:03: drops [place] drops 24 Medical Branch atropine 1 Yes atropine 1 U nivers % 9-26 % eye ity of ophthalmic 16:03: drops [place] drops 24 Medical Branch atropine 1 Yes atropine 1 U nivers % 9-26 % eye ity of ophthalmic 16:03: drops [place] drops 24 Medical Branch atropine 1 Yes atropine 1 U nivers % 9-26 % eye ity of ophthalmic 16:03: drops [place] drops 24 Medical Branch atropine 1 Yes atropine 1 U nivers % 9-26 % eye ity of ophthalmic 16:03: drops [place] drops 24 Medical Branch atropine 1 Yes atropine 1 U nivers % 9-26 % eye ity of ophthalmic 16:03: drops [place] drops 24 Medical Branch meloxicam Yes [id number] 7.5mg Take 1 Univers (MOBIC) 7.5 9-26 tablet by ity of mg tablet 00:00: mouth once [place] 00 daily as Medical needed for Branch Pain (scale 7-10) (use sparingly due to side effects). baclofen Yes [id number] 5mg Take 1 [facility] mg tablet 9-26 tablet by ity o f 00:00: mouth 3 00 (three) Medical times Branch daily as needed (muscle pain or spasm). meloxicam Yes [id number] 7.5mg Take 1 [facility] (MOBIC) 7.5 9-26 tablet by ity of mg tablet 00:00: mouth once [place] 00 daily as Medical needed for Branch Pain (scale 7-10) (use sparingly due to side effects). baclofen 5 Yes [id number] 5mg Take 1 [facility] mg tablet 9-26 tablet by ity o f 00:00: mouth 3 [place] 00 (three) Medical times Branch daily as needed (muscle pain or spasm). meloxicam 0 Yes [id number] 7.5mg Take 1 [facility] (MOBIC) 7.5 9-26 tablet by ity of mg tablet 00:00: mouth once [place] 00 daily as Medical needed for Branch Pain (scale 7-10) (use sparingly due to side effects). baclofen 5 0 Yes [id number] 5mg Take 1 [facility] mg tablet 9-26 tablet by ity o f 00:00: mouth 3 [place] 00 (three) Medical times Branch daily as needed (muscle pain or spasm). meloxicam Yes [id number] 7.5mg Take 1 [facility] (MOBIC) 7.5 9-26 tablet by ity of mg tablet 00:00: mouth once [place] 00 daily as Medical needed for Branch Pain (scale 7-10) (use sparingly due to side effects). baclofen 5 0 Yes [id number] 5mg Take 1 [facility] mg tablet 9-26 tablet by ity o f 00:00: mouth 3 [place] 00 (three) Medical times Branch daily as needed (muscle pain or spasm). meloxicam Yes [id number] 7.5mg Take 1 [facility] (MOBIC) 7.5 9-26 tablet by ity of mg tablet 00:00: mouth once [place] 00 daily as Medical needed for Branch Pain (scale 7-10) (use sparingly due to side effects). baclofen 5 0 Yes [id number] 5mg Take 1 [facility] mg tablet 9-26 tablet by ity o f 00:00: mouth 3 [place] 00 (three) Medical times Branch daily as needed (muscle pain or spasm). meloxicam 2021-0 Yes [id number] 7.5mg Take 1 [facility] (MOBIC) 7.5 9-26 tablet by ity of mg tablet 00:00: mouth once [place] 00 daily as Medical needed for Branch Pain (scale 7-10) (use sparingly due to side effects). baclofen 5 2021-0 Yes [id number] 5mg Take 1 [facility] mg tablet 9-26 tablet by ity o f 00:00: mouth 3 [place] 00 (three) Medical times Branch daily as needed (muscle pain or spasm). pantoprazol 0 Yes Univer s e 40 mg EC 9-26 ity of tablet 00:00: Medical Branch meloxicam 2021-0 Yes [id number] 7.5mg Take 1 [facility] (MOBIC) 7.5 9-26 tablet by ity of mg tablet 00:00: mouth once [place] 00 daily as Medical needed for Branch Pain (scale 7-10) (use sparingly due to side effects). baclofen 5 0 Yes [id number] 5mg Take 1 [facility] mg tablet 9-26 tablet by ity o f 00:00: mouth 3 (three) Medical times Branch daily as needed (muscle pain or spasm). pantoprazol 2021-0 Yes Univer s e 40 mg EC 9-26 ity of tablet 00:00: Medical Branch meloxicam 0 Yes [id number] 7.5mg Take 1 [facility] (MOBIC) 7.5 9-26 tablet by ity of mg tablet 00:00: mouth once [place] 00 daily as Medical needed for Branch Pain (scale 7-10) (use sparingly due to side effects). baclofen 5 0 Yes [id number] 5mg Take 1 [facility] mg tablet 9-26 tablet by ity o f 00:00: mouth 3 (three) Medical times Branch daily as needed (muscle pain or spasm). pantoprazol 0 Yes Univer s e 40 mg EC 9-26 ity of tablet 00:00: Medical Branch meloxicam 0 Yes [id number] 7.5mg Take 1 [facility] (MOBIC) 7.5 9-26 tablet by ity of mg tablet 00:00: mouth once [place] 00 daily as Medical needed for Branch Pain (scale 7-10) (use sparingly due to side effects). baclofen 5 2021-0 Yes [id number] 5mg Take 1 [facility] mg tablet 9-26 tablet by ity o f 00:00: mouth 3 (three) Medical times Branch daily as needed (muscle pain or spasm). pantoprazol 2021-0 Yes Univer s e 40 mg EC 9-26 ity of tablet 00:00: Medical Branch meloxicam 2021-0 Yes [id number] 7.5mg Take 1 [facility] (MOBIC) 7.5 9-26 tablet by ity of mg tablet 00:00: mouth once [place] 00 daily as Medical needed for Branch Pain (scale 7-10) (use sparingly due to side effects). baclofen 5 2021-0 Yes [id number] 5mg Take 1 [facility] mg tablet 9-26 tablet by ity o f 00:00: mouth 3 (three) Medical times Branch daily as needed (muscle pain or spasm). pantoprazol 2021-0 Yes Univer s e 40 mg EC 9-26 ity of tablet 00:00: Medical Branch meloxicam 2021-0 Yes [id number] 7.5mg Take 1 [facility] (MOBIC) 7.5 9-26 tablet by ity of mg tablet 00:00: mouth once [place] 00 daily as Medical needed for Branch Pain (scale 7-10) (use sparingly due to side effects). baclofen 5 2021-0 Yes [id number] 5mg Take 1 [facility] mg tablet 9-26 tablet by ity o f 00:00: mouth 3 (three) Medical times Branch daily as needed (muscle pain or spasm). pantoprazol 2021-0 Yes Univer s e 40 mg EC 9-26 ity of tablet 00:00: Medical Branch meloxicam 2021-0 Yes [id number] 7.5mg Take 1 [facility] (MOBIC) 7.5 9-26 tablet by ity of mg tablet 00:00: mouth once [place] 00 daily as Medical needed for Branch Pain (scale 7-10) (use sparingly due to side effects). baclofen 5 2021-0 Yes [id number] 5mg Take 1 [facility] mg tablet 9-26 tablet by ity o f 00:00: mouth 3 (three) Medical times Branch daily as needed (muscle pain or spasm). pantoprazol 2021-0 Yes Univer s e 40 mg EC 9-26 ity of tablet 00:00: Medical Branch meloxicam 2021-0 Yes [id number] 7.5mg Take 1 [facility] (MOBIC) 7.5 9-26 tablet by ity of mg tablet 00:00: mouth once [place] 00 daily as Medical needed for Branch Pain (scale 7-10) (use sparingly due to side effects). baclofen 5 2021-0 Yes [id number] 5mg Take 1 [facility] mg tablet 9-26 tablet by ity o f 00:00: mouth 3 (three) Medical times Branch daily as needed (muscle pain or spasm). pantoprazol 2021-0 Yes Univer s e 40 mg EC 9-26 ity of tablet 00:00: Medical Branch meloxicam 2021-0 Yes [id number] 7.5mg Take 1 [facility] (MOBIC) 7.5 9-26 tablet by ity of mg tablet 00:00: mouth once [place] 00 daily as Medical needed for Branch Pain (scale 7-10) (use sparingly due to side effects). baclofen 5 2021-0 Yes [id number] 5mg Take 1 [facility] mg tablet 9-26 tablet by ity o f 00:00: mouth 3 (three) Medical times Branch daily as needed (muscle pain or spasm). pantoprazol 2021-0 Yes Univer s e 40 mg EC 9-26 ity of tablet 00:00: Medical Branch meloxicam 2021-0 Yes [id number] 7.5mg Take 1 [facility] (MOBIC) 7.5 9-26 tablet by ity of mg tablet 00:00: mouth once [place] 00 daily as Medical needed for Branch Pain (scale 7-10) (use sparingly due to side effects). baclofen 5 2021-0 Yes [id number] 5mg Take 1 [facility] mg tablet 9-26 tablet by ity o f 00:00: mouth 3 (three) Medical times Branch daily as needed (muscle pain or spasm). pantoprazol 2021-0 Yes Univer s e 40 mg EC 9-26 ity of tablet 00:00: Medical Branch meloxicam 2-0 Yes [id number] 7.5mg Take 1 [facility] (MOBIC) 7.5 9-26 tablet by ity of mg tablet 00:00: mouth once [place] 00 daily as Medical needed for Branch Pain (scale 7-10) (use sparingly due to side effects). baclofen 5 2021-0 Yes [id number] 5mg Take 1 [facility] mg tablet 9-26 tablet by ity o f 00:00: mouth 3 (three) Medical times Branch daily as needed (muscle pain or spasm). pantoprazol 2021-0 Yes Univer s e 40 mg EC 9-26 ity of tablet 00:00: Medical Branch meloxicam 2021-0 Yes [id number] 7.5mg Take 1 [facility] (MOBIC) 7.5 9-26 tablet by ity of mg tablet 00:00: mouth once [place] 00 daily as Medical needed for Branch Pain (scale 7-10) (use sparingly due to side effects). baclofen 5 2021-0 Yes [id number] 5mg Take 1 [facility] mg tablet 9-26 tablet by ity o f 00:00: mouth 3 (three) Medical times Branch daily as needed (muscle pain or spasm). pantoprazol 2021-0 Yes Univer s e 40 mg EC 9-26 ity of tablet 00:00: Medical Branch meloxicam 2021-0 Yes [id number] 7.5mg Take 1 [facility] (MOBIC) 7.5 9-26 tablet by ity of mg tablet 00:00: mouth once [place] 00 daily as Medical needed for Branch Pain (scale 7-10) (use sparingly due to side effects). baclofen 5 2021-0 Yes [id number] 5mg Take 1 [facility] mg tablet 9-26 tablet by ity o f 00:00: mouth 3 (three) Medical times Branch daily as needed (muscle pain or spasm). pantoprazol 2021-0 Yes Univer s e 40 mg EC 9-26 ity of tablet 00:00: Medical Branch meloxicam 2021-0 Yes [id number] 7.5mg Take 1 [facility] (MOBIC) 7.5 9-26 tablet by ity of mg tablet 00:00: mouth once [place] 00 daily as Medical needed for Branch Pain (scale 7-10) (use sparingly due to side effects). baclofen 5 2021-0 Yes [id number] 5mg Take 1 [facility] mg tablet 9-26 tablet by ity o f 00:00: mouth 3 (three) Medical times Branch daily as needed (muscle pain or spasm). pantoprazol 2021-0 Yes Univer s e 40 mg EC 9-26 ity of tablet 00:00: Medical Branch meloxicam 2022-0 Yes [id number] 7.5mg Take 1 [facility] (MOBIC) 7.5 9-26 tablet by ity of mg tablet 00:00: mouth once [place] 00 daily as Medical needed for Branch Pain (scale 7-10) (use sparingly due to side effects). baclofen 5 2021-0 Yes [id number] 5mg Take 1 [facility] mg tablet 9-26 tablet by ity o f 00:00: mouth 3 (three) Medical times Branch daily as needed (muscle pain or spasm). pantoprazol 0 Yes Univer s e 40 mg EC 9-26 [facility] tablet 00:00: [facility] meloxicam 2021-0 Yes [id number] 7.5mg Take 1 [facility] ([facility] 7.5 9-26 tablet by [facility] mg tablet 00:00: mouth once [place] 00 daily as Medical needed for Branch Pain (scale 7-10) (use sparingly due to side effects). baclofen 5 2021-0 Yes [id number] 5mg Take 1 [facility] mg tablet 9-26 tablet by [facility] o f 00:00: mouth 3 (three) Medical times Branch daily as needed (muscle pain or spasm). pantoprazol 2021-0 Yes [facility] 40 mg EC 9-26 [facility] tablet 00:00: [facility] meloxicam 2021-0 Yes [id number] 7.5mg Take 1 [facility] ([facility]) 7.5 9-26 tablet by [facility] mg tablet 00:00: mouth once [place] 00 daily as Medical needed for Branch Pain (scale 7-10) (use sparingly due to side effects). baclofen 5 0 Yes [id number] 5mg Take 1 [facility] mg tablet 9-26 tablet by [facility] o f 00:00: mouth 3 (three) Medical times [facility] daily as needed (muscle pain or spasm). pantoprazol 2021-0 Yes [facility] 40 mg EC 9-26 [facility] tablet 00:00: [facility] meloxicam 2021-0 Yes [id number] 7.5mg Take 1 [facility] ([facility]) 7.5 9-26 tablet by [facility] mg tablet 00:00: mouth once [place] 00 daily as Medical needed for Branch Pain (scale 7-10) (use sparingly due to side effects). baclofen 5 2021-0 Yes [id number] 5mg Take 1 [facility] mg tablet 9-26 tablet by [facility] o f 00:00: mouth 3 (three) Medical times Branch daily as needed (muscle pain or spasm). pantoprazol 2021-0 Yes [facility] 40 mg EC 9-26 [facility] tablet 00:00: [facility] meloxicam 2021-0 Yes [id number] 7.5mg Take 1 [facility] ([facility]) 7.5 9-26 tablet by [facility] mg tablet 00:00: mouth once [place] 00 daily as Medical needed for Branch Pain (scale 7-10) (use sparingly due to side effects). baclofen 5 2021-0 Yes [id number] 5mg Take 1 [facility] mg tablet 9-26 tablet by [facility] o f 00:00: mouth 3 (three) Medical times [facility] daily as needed (muscle pain or spasm). pantoprazol 2021-0 Yes [facility] 40 mg EC 9-26 [facility] tablet 00:00: [facility] meloxicam 2021-0 Yes [id number] 7.5mg Take 1 [facility] ([facility]) 7.5 9-26 tablet by [facility] mg tablet 00:00: mouth once [place] 00 daily as Medical needed for Branch Pain (scale 7-10) (use sparingly due to side effects). baclofen 5 2021-0 Yes [id number] 5mg Take 1 [facility] mg tablet 9-26 tablet by [facility] o f 00:00: mouth 3 (three) Medical times [facility] daily as needed (muscle pain or spasm). pantoprazol 2021-0 Yes [facility] 40 mg EC 9-26 [facility] tablet 00:00: [facility] meloxicam 2021-0 Yes [id number] 7.5mg Take 1 [facility] ([facility]) 7.5 9-26 tablet by [facility] mg tablet 00:00: mouth once [place] 00 daily as Medical needed for Branch Pain (scale 7-10) (use sparingly due to side effects). baclofen 5 2021-0 Yes [id number] 5mg Take 1 [facility] mg tablet 9-26 tablet by [facility] o f 00:00: mouth 3 (three) Medical times [facility] daily as needed (muscle pain or spasm). pantoprazol 2021-0 Yes [facility] 40 mg EC 9-26 [facility] tablet 00:00: [facility] meloxicam 2021-0 Yes [id number] 7.5mg Take 1 [facility] ([facility]) 7.5 9-26 tablet by [facility] mg tablet 00:00: mouth once [place] 00 daily as Medical needed for Branch Pain (scale 7-10) (use sparingly due to side effects). baclofen 5 2021-0 Yes [id number] 5mg Take 1 [facility] mg tablet 9-26 tablet by [facility] o f 00:00: mouth 3 (three) Medical times [facility] daily as needed (muscle pain or spasm). pantoprazol 2021-0 Yes [facility] 40 mg EC 9-26 [facility] tablet 00:00: [facility] meloxicam 2021-0 Yes [id number] 7.5mg Take 1 [facility] ([facility]) 7.5 9-26 tablet by [facility] mg tablet 00:00: mouth once [place] 00 daily as Medical needed for Branch Pain (scale 7-10) (use sparingly due to side effects). baclofen 5 2021-0 Yes [id number] 5mg Take 1 [facility] mg tablet 9-26 tablet by [facility] o f 00:00: mouth 3 (three) Medical times [facility] daily as needed (muscle pain or spasm). pantoprazol 2021-0 Yes [facility] 40 mg EC 9-26 [facility] tablet 00:00: [facility] meloxicam 2021-0 Yes [id number] 7.5mg Take 1 [facility] ([facility]) 7.5 9-26 tablet by [facility] mg tablet 00:00: mouth once [place] 00 daily as Medical needed for Branch Pain (scale 7-10) (use sparingly due to side effects). baclofen 5 2021-0 Yes [id number] 5mg Take 1 [facility] mg tablet 9-26 tablet by [facility] o f 00:00: mouth 3 (three) Medical times [facility] daily as needed (muscle pain or spasm). pantoprazol 2021-0 Yes [facility] 40 mg EC 9-26 [facility] tablet 00:00: [facility] meloxicam 2021-0 Yes [id number] 7.5mg Take 1 [facility] ([facility]) 7.5 9-26 tablet by [facility] mg tablet 00:00: mouth once [place] 00 daily as Medical needed for Branch Pain (scale 7-10) (use sparingly due to side effects). baclofen 5 2021-0 Yes [id number] 5mg Take 1 [facility] mg tablet 9-26 tablet by [facility] o f 00:00: mouth 3 (three) Medical times [facility] daily as needed (muscle pain or spasm). pantoprazol 2021-0 Yes [facility] 40 mg EC 9-26 [facility] tablet 00:00: [facility] meloxicam 2021-0 Yes [id number] 7.5mg Take 1 [facility] ([facility]) 7.5 9-26 tablet by [facility] mg tablet 00:00: mouth once [place] 00 daily as Medical needed for Branch Pain (scale 7-10) (use sparingly due to side effects). baclofen 5 2021-0 Yes [id number] 5mg Take 1 [facility] mg tablet 9-26 tablet by [facility] o f 00:00: mouth 3 (three) Medical times [facility] daily as needed (muscle pain or spasm). pantoprazol 2021-0 Yes [facility] 40 mg EC 9-26 [facility] tablet 00:00: [facility] meloxicam 2021-0 Yes [id number] 7.5mg Take 1 [facility] ([facility]) 7.5 9-26 tablet by [facility] mg tablet 00:00: mouth once [place] 00 daily as Medical needed for Branch Pain (scale 7-10) (use sparingly due to side effects). baclofen 5 2021-0 Yes [id number] 5mg Take 1 [facility] mg tablet 9-26 tablet by [facility] o f 00:00: mouth 3 (three) Medical times [facility] daily as needed (muscle pain or spasm). pantoprazol 2021-0 Yes [facility] 40 mg EC 9-26 [facility] tablet 00:00: [facility] meloxicam 2021-0 Yes [id number] 7.5mg Take 1 [facility] ([facility]) 7.5 9-26 tablet by [facility] mg tablet 00:00: mouth once [place] 00 daily as Medical needed for Branch Pain (scale 7-10) (use sparingly due to side effects). baclofen 5 2021-0 Yes [id number] 5mg Take 1 [facility] mg tablet 9-26 tablet by [facility] o f 00:00: mouth 3 (three) Medical times [facility] daily as needed (muscle pain or spasm). pantoprazol 0 Yes [facility] 40 mg EC 9-26 [facility] tablet 00:00: [facility] meloxicam 2021-0 Yes [id number] 7.5mg Take 1 [facility] ([facility]) 7.5 9-26 tablet by [facility] mg tablet 00:00: mouth once [place] 00 daily as Medical needed for Branch Pain (scale 7-10) (use sparingly due to side effects). baclofen 5 2021-0 Yes [id number] 5mg Take 1 [facility] mg tablet 9-26 tablet by [facility] o f 00:00: mouth 3 (three) Medical times [facility] daily as needed (muscle pain or spasm). pantoprazol 0 Yes [facility] 40 mg EC 9-26 [facility] tablet 00:00: [facility] meloxicam 2021-0 Yes [id number] 7.5mg Take 1 [facility] ([facility]) 7.5 9-26 tablet by [facility] mg tablet 00:00: mouth once [place] 00 daily as Medical needed for Branch Pain (scale 7-10) (use sparingly due to side effects). pantoprazol 2021-0 Yes [facility] 40 mg EC 9-26 [facility] tablet 00:00: [facility] meloxicam 2021-0 Yes [id number] 7.5mg Take 1 [facility] ([facility]) 7.5 9-26 tablet by [facility] mg tablet 00:00: mouth once [place] 00 daily as Medical needed for Branch Pain (scale 7-10) (use sparingly due to side effects). pantoprazol 2021-0 Yes [facility] 40 mg EC 9-26 [facility] tablet 00:00: [facility] meloxicam 2021-0 Yes [id number] 7.5mg Take 1 [facility] ([facility]) 7.5 9-26 tablet by [facility] mg tablet 00:00: mouth once [place] 00 daily as Medical needed for Branch Pain (scale 7-10) (use sparingly due to side effects). pantoprazol 2021-0 Yes [facility] 40 mg EC 9-26 [facility] tablet 00:00: [facility] meloxicam 2021-0 Yes [id number] 7.5mg Take 1 [facility] ([facility]) 7.5 9-26 tablet by [facility] mg tablet 00:00: mouth once [place] 00 daily as Medical needed for Branch Pain (scale 7-10) (use sparingly due to side effects). pantoprazol 0 Yes [facility] 40 mg EC 9-26 [facility] tablet 00:00: [facility] meloxicam 2021-0 Yes [id number] 7.5mg Take 1 [facility] ([facility]) 7.5 9-26 tablet by [facility] mg tablet 00:00: mouth once [place] 00 daily as Medical needed for Branch Pain (scale 7-10) (use sparingly due to side effects). pantoprazol 0 Yes [facility] 40 mg EC 9-26 [facility] tablet 00:00: [facility] meloxicam 2021-0 Yes [id number] 7.5mg Take 1 [facility] ([facility]) 7.5 9-26 tablet by [facility] mg tablet 00:00: mouth once [place] 00 daily as Medical needed for Branch Pain (scale 7-10) (use sparingly due to side effects). pantoprazol 0 Yes [facility] 40 mg EC 9-26 [facility] of tablet 00:00: [facility] meloxicam 2021-0 Yes [id number] 7.5mg Take 1 [facility] ([facility]) 7.5 9-26 tablet by [facility] mg tablet 00:00: mouth once [place] 00 daily as Medical needed for Branch Pain (scale 7-10) (use sparingly due to side effects). pantoprazol 2021-0 Yes [facility] 40 mg EC 9-26 [facility] of tablet 00:00: [facility] meloxicam 2021-0 Yes [id number] 7.5mg Take 1 [facility] ([facility]) 7.5 9-26 tablet by [facility] mg tablet 00:00: mouth once [place] 00 daily as Medical needed for Branch Pain (scale 7-10) (use sparingly due to side effects). pantoprazol 0 Yes [facility] 40 mg EC 9-26 [facility] of tablet 00:00: [facility] meloxicam 2021-0 Yes [id number] 7.5mg Take 1 [facility] (MOB[facility]) 7.5 9-26 tablet by [facility] mg tablet 00:00: mouth once [place] 00 daily as Medical needed for Branch Pain (scale 7-10) (use sparingly due to side effects). pantoprazol 0 Yes [facility] 40 mg EC 9-26 [facility] of tablet 00:00: [facility] meloxicam 0 Yes [id number] 7.5mg Take 1 [facility] (MOB[facility]) 7.5 9-26 tablet by [facility] mg tablet 00:00: mouth once [place] 00 daily as Medical needed for Branch Pain (scale 7-10) (use sparingly due to side effects). pantoprazol 0 Yes [facility] 40 mg EC 9-26 [facility] of tablet 00:00: [facility] meloxicam 0 Yes [id number] 7.5mg Take 1 [facility] (MOB[facility]) 7.5 9-26 tablet by [facility] of mg tablet 00:00: mouth once [place] 00 daily as Medical needed for Branch Pain (scale 7-10) (use sparingly due to side effects). pantoprazol 0 Yes [facility] 40 mg EC 9-26 [facility] of tablet 00:00: [facility] meloxicam 2021-0 Yes [id number] 7.5mg Take 1 [facility] (MOB[facility]) 7.5 9-26 tablet by [facility] of mg tablet 00:00: mouth once [place] 00 daily as Medical needed for Branch Pain (scale 7-10) (use sparingly due to side effects). pantoprazol 0 Yes [facility] 40 mg EC 9-26 [facility] of tablet 00:00: [facility] meloxicam 2021-0 Yes [id number] 7.5mg Take 1 [facility] (MOB[facility]) 7.5 9-26 tablet by [facility] of mg tablet 00:00: mouth once [place] 00 daily as Medical needed for Branch Pain (scale 7-10) (use sparingly due to side effects). pantoprazol 0 Yes [facility] 40 mg EC 9-26 [facility] of tablet 00:00: [facility] meloxicam 2021-0 Yes [id number] 7.5mg Take 1 [facility] (MOB[facility]) 7.5 9-26 tablet by [facility] mg tablet 00:00: mouth once [place] 00 daily as Medical needed for Branch Pain (scale 7-10) (use sparingly due to side effects). pantoprazol 0 Yes [facility] 40 mg EC 9-26 [facility] of tablet 00:00: [facility] meloxicam 2021-0 Yes [id number] 7.5mg Take 1 [facility] ([facility]) 7.5 9-26 tablet by [facility] of mg tablet 00:00: mouth once [place] 00 daily as Medical needed for Branch Pain (scale 7-10) (use sparingly due to side effects). pantoprazol 0 Yes [facility] 40 mg EC 9-26 [facility] of tablet 00:00: [facility] meloxicam 0 Yes [id number] 7.5mg Take 1 [facility] (MOBIC) 7.5 9-26 tablet by [facility] of mg tablet 00:00: mouth once [place] 00 daily as Medical needed for Branch Pain (scale 7-10) (use sparingly due to side effects). pantoprazol 0 Yes [facility] 40 mg EC 9-26 [facility] of tablet 00:00: [facility] meloxicam 2021-0 Yes [id number] 7.5mg Take 1 [facility] (MOB[facility]) 7.5 9-26 tablet by [facility] of mg tablet 00:00: mouth once [place] 00 daily as Medical needed for Branch Pain (scale 7-10) (use sparingly due to side effects). pantoprazol 0 Yes [facility] 40 mg EC 9-26 [facility] of tablet 00:00: [facility] meloxicam 2021-0 Yes [id number] 7.5mg Take 1 [facility] (MOBIC) 7.5 9-26 tablet by [facility] of mg tablet 00:00: mouth once [place] 00 daily as Medical needed for Branch Pain (scale 7-10) (use sparingly due to side effects). pantoprazol 2021-0 Yes [facility] 40 mg EC 9-26 [facility] of tablet 00:00: [facility] meloxicam 2021-0 Yes [id number] 7.5mg Take 1 [facility] (MOBIC) 7.5 9-26 tablet by [facility] of mg tablet 00:00: mouth once [place] 00 daily as Medical needed for Branch Pain (scale 7-10) (use sparingly due to side effects). pantoprazol 0 Yes [facility] 40 mg EC 9-26 [facility] of tablet 00:00: [facility] meloxicam 2021-0 Yes [id number] 7.5mg Take 1 [facility] (MOBIC) 7.5 9-26 tablet by [facility] of mg tablet 00:00: mouth once [place] 00 daily as Medical needed for Branch Pain (scale 7-10) (use sparingly due to side effects). pantoprazol 0 Yes [facility] 40 mg EC 9-26 [facility] of tablet 00:00: [facility] meloxicam 0 Yes [id number] 7.5mg Take 1 [facility] (MOBIC) 7.5 9-26 tablet by [facility] of mg tablet 00:00: mouth once [place] 00 daily as Medical needed for Branch Pain (scale 7-10) (use sparingly due to side effects). pantoprazol 2021-0 Yes [facility] 40 mg EC 9-26 [facility] of tablet 00:00: [facility] meloxicam 2021-0 Yes [id number] 7.5mg Take 1 [facility] (MOBIC) 7.5 9-26 tablet by [facility] of mg tablet 00:00: mouth once [place] 00 daily as Medical needed for Branch Pain (scale 7-10) (use sparingly due to side effects). pantoprazol 2021-0 Yes [facility] 40 mg EC 9-26 [facility] of tablet 00:00: [facility] meloxicam 2021-0 Yes [id number] 7.5mg Take 1 [facility] (MOB[facility]) 7.5 9-26 tablet by [facility] of mg tablet 00:00: mouth once [place] 00 daily as Medical needed for Branch Pain (scale 7-10) (use sparingly due to side effects). pantoprazol 2021-0 Yes [facility] 40 mg EC 9-26 [facility]y of tablet 00:00: [facility] meloxicam 2021-0 Yes [id number] 7.5mg Take 1 [facility] (MOBIC) 7.5 9-26 tablet by [facility] of mg tablet 00:00: mouth once [place] 00 daily as Medical needed for Branch Pain (scale 7-10) (use sparingly due to side effects). pantoprazol 0 Yes [facility] 40 mg EC 9-26 [facility] of tablet 00:00: [facility] meloxicam 0 Yes [id number] 7.5mg Take 1 [facility] (MOB[facility]) 7.5 9-26 tablet by [facility] of mg tablet 00:00: mouth once [place] 00 daily as Medical needed for Branch Pain (scale 7-10) (use sparingly due to side effects). pantoprazol Yes [facility] 40 mg EC 9-26 [facility]y of tablet 00:00: [facility] meloxicam 0 Yes [id number] 7.5mg Take 1 [facility] (MOBIC) 7.5 9-26 tablet by [facility] of mg tablet 00:00: mouth once [place] 00 daily as Medical needed for Branch Pain (scale 7-10) (use sparingly due to side effects). pantoprazol 0 Yes [facility] 40 mg EC 9-26 [facility]y of tablet 00:00: [facility] meloxicam 2021-0 Yes [id number] 7.5mg Take 1 [facility] (MOB[facility]) 7.5 9-26 tablet by [facility] of mg tablet 00:00: mouth once [place] 00 daily as Medical needed for Branch Pain (scale 7-10) (use sparingly due to side effects). pantoprazol 2021-0 Yes [facility] 40 mg EC 9-26 [facility]y of tablet 00:00: [facility] meloxicam 2021-0 Yes [id number] 7.5mg Take 1 [facility] (MOBIC) 7.5 9-26 tablet by [facility] of mg tablet 00:00: mouth once [place] 00 daily as Medical needed for Branch Pain (scale 7-10) (use sparingly due to side effects). pantoprazol Yes [facility] 40 mg EC 9-26 [facility]y of tablet 00:00: [facility] meloxicam 0 Yes [id number] 7.5mg Take 1 [facility] (MOBIC) 7.5 9-26 tablet by [facility] of mg tablet 00:00: mouth once [place] 00 daily as Medical needed for Branch Pain (scale 7-10) (use sparingly due to side effects). pantoprazol Yes [facility] 40 mg EC 9-26 [facility]y of tablet 00:00: [facility] meloxicam 0 Yes [id number] 7.5mg Take 1 [facility] (MOBIC) 7.5 9-26 tablet by [facility] of mg tablet 00:00: mouth once [place] 00 daily as Medical needed for Branch Pain (scale 7-10) (use sparingly due to side effects). pantoprazol Yes [facility] 40 mg EC 9-26 [facility]y of tablet 00:00: [facility] meloxicam Yes [id number] 7.5mg Take 1 [facility] (MOBIC) 7.5 9-26 tablet by [facility] of mg tablet 00:00: mouth once [place] 00 daily as Medical needed for Branch Pain (scale 7-10) (use sparingly due to side effects). pantoprazol Yes [facility] 40 mg EC 9-26 [facility]y of tablet 00:00: [facility] meloxicam 0 Yes [id number] 7.5mg Take 1 [facility] (MOBIC) 7.5 9-26 tablet by [facility] of mg tablet 00:00: mouth once [place] 00 daily as Medical needed for Branch Pain (scale 7-10) (use sparingly due to side effects). pantoprazol Yes [facility] 40 mg EC 9-26 [facility] of tablet 00:00: [facility] meloxicam 0 Yes [id number] 7.5mg Take 1 [facility] (MOBIC) 7.5 9-26 tablet by [facility] of mg tablet 00:00: mouth once [place] 00 daily as Medical needed for Branch Pain (scale 7-10) (use sparingly due to side effects). pantoprazol 2022-0 Yes [facility] 40 mg EC 9-26 [facility] of tablet 00:00: [facility] meloxicam 2021-0 Yes [id number] 7.5mg Take 1 [facility] (MOBIC) 7.5 9-26 tablet by [facility] of mg tablet 00:00: mouth once [place] 00 daily as Medical needed for Branch Pain (scale 7-10) (use sparingly due to side effects). pantoprazol Yes [facility] 40 mg EC 9-26 [facility] of tablet 00:00: [facility] meloxicam 0 Yes [id number] 7.5mg Take 1 [facility] (MOBIC) 7.5 9-26 tablet by [facility] of mg tablet 00:00: mouth once [place] 00 daily as Medical needed for Branch Pain (scale 7-10) (use sparingly due to side effects). pantoprazol Yes [facility] 40 mg EC 9-26 [facility]y of tablet 00:00: [facility] meloxicam 0 Yes [id number] 7.5mg Take 1 [facility] (MOBIC) 7.5 9-26 tablet by [facility] of mg tablet 00:00: mouth once [place] 00 daily as Medical needed for Branch Pain (scale 7-10) (use sparingly due to side effects). pantoprazol Yes [facility] 40 mg EC 9-26 [facility]y of tablet 00:00: [facility] meloxicam 2021-0 Yes [id number] 7.5mg Take 1 [facility] (MOBIC) 7.5 9-26 tablet by [facility] of mg tablet 00:00: mouth once [place] 00 daily as Medical needed for Branch Pain (scale 7-10) (use sparingly due to side effects). pantoprazol 0 Yes [facility] 40 mg EC 9-26 [facility]y of tablet 00:00: [facility] meloxicam 2021-0 Yes [id number] 7.5mg Take 1 [facility] (MOBIC) 7.5 9-26 tablet by [facility] of mg tablet 00:00: mouth once [place] 00 daily as Medical needed for Branch Pain (scale 7-10) (use sparingly due to side effects). pantoprazol 2022-0 Yes [facility] 40 mg EC 9-26 [facility] of tablet 00:00: [facility] meloxicam 2021-0 Yes [id number] 7.5mg Take 1 [facility] (MOBIC) 7.5 9-26 tablet by [facility] of mg tablet 00:00: mouth once [place] 00 daily as Medical needed for Branch Pain (scale 7-10) (use sparingly due to side effects). pantoprazol 0 Yes [facility] 40 mg EC 9-26 [facility] of tablet 00:00: [facility] meloxicam 0 Yes [id number] 7.5mg Take 1 [facility] (MOBIC) 7.5 9-26 tablet by [facility] of mg tablet 00:00: mouth once [place] 00 daily as Medical needed for Branch Pain (scale 7-10) (use sparingly due to side effects). pantoprazol 0 Yes [facility] 40 mg EC 9-26 [facility]y of tablet 00:00: [facility] meloxicam 0 Yes [id number] 7.5mg Take 1 [facility] (MOBIC) 7.5 9-26 tablet by [facility] of mg tablet 00:00: mouth once [place] 00 daily as Medical needed for Branch Pain (scale 7-10) (use sparingly due to side effects). pantoprazol Yes [facility] 40 mg EC 9-26 [facility] of tablet 00:00: [facility] meloxicam 0 Yes [id number] 7.5mg Take 1 [facility] (MOBIC) 7.5 9-26 tablet by [facility] of mg tablet 00:00: mouth once [place] 00 daily as Medical needed for Branch Pain (scale 7-10) (use sparingly due to side effects). pantoprazol 0 Yes [facility] 40 mg EC 9-26 [facility]y of tablet 00:00: [facility] meloxicam 2021-0 Yes [id number] 7.5mg Take 1 [facility] (MOBIC) 7.5 9-26 tablet by [facility] of mg tablet 00:00: mouth once [place] 00 daily as Medical needed for Branch Pain (scale 7-10) (use sparingly due to side effects). pantoprazol 0 Yes [facility] 40 mg EC 9-26 [facility]y of tablet 00:00: [facility] meloxicam 2021-0 Yes [id number] 7.5mg Take 1 [facility] (MOBIC) 7.5 9-26 tablet by [facility] of mg tablet 00:00: mouth once [place] 00 daily as Medical needed for Branch Pain (scale 7-10) (use sparingly due to side effects). pantoprazol 2021-0 Yes [facility] 40 mg EC 9-26 [facility]y of tablet 00:00: [facility] meloxicam 2021-0 Yes [id number] 7.5mg Take 1 [facility] (MOBIC) 7.5 9-26 tablet by [facility] of mg tablet 00:00: mouth once [place] 00 daily as Medical needed for Branch Pain (scale 7-10) (use sparingly due to side effects). pantoprazol 2021-0 Yes [facility] 40 mg EC 9-26 [facility]y of tablet 00:00: [facility] meloxicam 2021-0 Yes [id number] 7.5mg Take 1 [facility] (MOBIC) 7.5 9-26 tablet by [facility] of mg tablet 00:00: mouth once [place] 00 daily as Medical needed for Branch Pain (scale 7-10) (use sparingly due to side effects). pantoprazol 0 Yes [facility] 40 mg EC 9-26 [facility]y of tablet 00:00: [facility] meloxicam 2021-0 Yes [id number] 7.5mg Take 1 [facility] (MOBIC) 7.5 9-26 tablet by [facility] of mg tablet 00:00: mouth once [place] 00 daily as Medical needed for Branch Pain (scale 7-10) (use sparingly due to side effects). pantoprazol 2021-0 Yes [facility] 40 mg EC 9-26 [facility]y of tablet 00:00: [facility] pantoprazol 2021-0 Yes [facility] 40 mg EC 9-26 ity of tablet 00:00: [place] [facility] pantoprazol 2021-0 Yes Univer s e 40 mg EC 9-26 ity of tablet 00:00: [place] [facility] pantoprazol 2021-0 Yes Univer [facility] e 40 mg EC 9-26 ity of tablet 00:00: [facility] pantoprazol Yes [facility] 40 mg EC - ity of tablet 00:00: [facility] pantoprazol Yes [facility] 40 mg EC 9 ity of tablet 00:00: [facility] pantoprazol Yes [facility] 40 mg EC 9- ity of tablet 00:00: [facility] pantoprazol Yes [facility] 40 mg EC 9 ity of tablet 00:00: [facility] pantoprazol Yes [facility] 40 mg EC - ity of tablet 00:00: [facility] pantoprazol Yes [facility] 40 mg EC 01-07 ity of tablet 00:00: [facility] meloxicam 2022- No [id number] 7.5mg Take 1 [facility] (MOBIC) 7.5 01-07 tablet by it y of mg tablet 00:00: 00:00 mouth once [place] 00 :00 daily as Medical needed for Branch Pain (scale 7-10) (use sparingly due to side effects). meloxicam 2022- No [id number] 7.5mg Take 1 [facility] (MOBIC) 7.5 01-07- tablet by it y of mg tablet 00:00: 00:00 mouth once [place] 00 :00 daily as Medical needed for Branch Pain (scale 7-10) (use sparingly due to side effects). baclofen 5 2021- No [id number] 5mg Take 1 [facility] mg tablet 01-07-16 tablet by [facility]y of 00:00: 00:00 mouth 3 [place] 00 :00 (three) Medical times Branch daily as needed (muscle pain or spasm). baclofen 5 2021- No [id number] 5mg Take 1 [facility] mg tablet 01-07-16 tablet by [facility]y of 00:00: 00:00 mouth 3 [place] 00 :00 (three) Medical times Branch daily as needed (muscle pain or spasm). sulfamethox Yes 1{tbl} Take 1 [facility] azole-trime - tablet by [facility] of thoprim 00:00: mouth [place] 800-160 mg 00 every 12 Medic al per tablet (twelve) Branc h hours. sulfamethox 2022-0 Yes 1{tbl} Take 1 [facility] azole-trime 9-23 tablet by [facility]y of thoprim 00:00: mouth [place] 800-160 mg 00 every 12 Medic al per tablet (twelve) Branc h hours. sulfamethox 2022-0 Yes 1{tbl} Take 1 [facility] azole-trime 9-23 tablet by [facility]y of thoprim 00:00: mouth [place] 800-160 mg 00 every 12 Medic al per tablet (twelve) Branc h hours. sulfamethox 2022-0 Yes 1{tbl} Take 1 [facility] azole-trime 9-23 tablet by [facility]y of thoprim 00:00: mouth [place] 800-160 mg 00 every 12 Medic al per tablet (twelve) Branc h hours. sulfamethox 2022-0 Yes 1{tbl} Take 1 [facility] azole-trime 9-23 tablet by [facility]y of thoprim 00:00: mouth [place] 800-160 mg 00 every 12 Medic al per tablet (twelve) Branc h hours. sulfamethox 2022-0 Yes 1{tbl} Take 1 [facility] azole-trime 9-23 tablet by [facility] of thoprim 00:00: mouth [place] 800-160 mg 00 every 12 Medic al per tablet (twelve) Branc h hours. sulfamethox 2022-0 Yes 1{tbl} Take 1 [facility] azole-trime 9-23 tablet by [facility] of thoprim 00:00: mouth [place] 800-160 mg 00 every 12 Medic al per tablet (twelve) Branc h hours. sulfamethox 2022-0 Yes 1{tbl} Take 1 [facility] azole-trime 9-23 tablet by [facility] of thoprim 00:00: mouth [place] 800-160 mg 00 every 12 Medic al per tablet (twelve) Branc h hours. sulfamethox 2022-0 Yes 1{tbl} Take 1 [facility] azole-trime 9-23 tablet by [facility] of thoprim 00:00: mouth [place] 800-160 mg 00 every 12 Medic al per tablet (twelve) Branc h hours. sulfamethox 2022-0 Yes 1{tbl} Take 1 [facility] azole-trime 9-23 tablet by [facility] of thoprim 00:00: mouth [place] 800-160 mg 00 every 12 Medic al per tablet (twelve) Branc h hours. sulfamethox 2022-0 Yes 1{tbl} Take 1 [facility] azole-trime 9-23 tablet by [facility] of thoprim 00:00: mouth [place] 800-160 mg 00 every 12 Medic al per tablet (twelve) Branc h hours. sulfamethox 2022-0 Yes 1{tbl} Take 1 [facility] azole-trime 9-23 tablet by [facility] of thoprim 00:00: mouth [place] 800-160 mg 00 every 12 Medic al per tablet (twelve) Branc h hours. sulfamethox 2022-0 Yes 1{tbl} Take 1 [facility] azole-trime 9-23 tablet by [facility] of thoprim 00:00: mouth [place] 800-160 mg 00 every 12 Medic al per tablet (twelve) Branc h hours. sulfamethox 2022-0 Yes 1{tbl} Take 1 Un wendy azole-trime 9-23 tablet by ity of thoprim 00:00: mouth [place] 800-160 mg 00 every 12 Medic al per tablet (twelve) Branc h hours. sulfamethox 2022-0 Yes 1{tbl} Take 1 Un wendy azole-trime 9-23 tablet by ity of thoprim 00:00: mouth [place] 800-160 mg 00 every 12 Medic al per tablet (twelve) Branc h hours. sulfamethox 2022-0 Yes 1{tbl} Take 1 Un wendy azole-trime 9-23 tablet by ity of thoprim 00:00: mouth [place] 800-160 mg 00 every 12 Medic al per tablet (twelve) Branc h hours. sulfamethox 2022-0 Yes 1{tbl} Take 1 Un wendy azole-trime 9-23 tablet by ity of thoprim 00:00: mouth [place] 800-160 mg 00 every 12 Medic al per tablet (twelve) Branc h hours. sulfamethox 2022-0 Yes 1{tbl} Take 1 Un wendy azole-trime 9-23 tablet by ity of thoprim 00:00: mouth [place] 800-160 mg 00 every 12 Medic al per tablet (twelve) Branc h hours. sulfamethox 2022-0 Yes 1{tbl} Take 1 Un wendy azole-trime 9-23 tablet by ity of thoprim 00:00: mouth [place] 800-160 mg 00 every 12 Medic al per tablet (twelve) Branc h hours. sulfamethox 2022-0 Yes 1{tbl} Take 1 Un wendy azole-trime 9-23 tablet by ity of thoprim 00:00: mouth [place] 800-160 mg 00 every 12 Medic al per tablet (twelve) Branc h hours. sulfamethox 2022-0 Yes 1{tbl} Take 1 Un wendy azole-trime 9-23 tablet by ity of thoprim 00:00: mouth [place] 800-160 mg 00 every 12 Medic al per tablet (twelve) Branc h hours. sulfamethox 2022-0 Yes 1{tbl} Take 1 Un wendy azole-trime 9-23 tablet by ity of thoprim 00:00: mouth [place] 800-160 mg 00 every 12 Medic al per tablet (twelve) Branc h hours. sulfamethox 2022-0 Yes 1{tbl} Take 1 Un wendy azole-trime 9-23 tablet by ity of thoprim 00:00: mouth [place] 800-160 mg 00 every 12 Medic al per tablet (twelve) Branc h hours. sulfamethox 2022-0 Yes 1{tbl} Take 1 Un wendy azole-trime 9-23 tablet by ity of thoprim 00:00: mouth [place] 800-160 mg 00 every 12 Medic al per tablet (twelve) Branc h hours. sulfamethox 2022-0 Yes 1{tbl} Take 1 Un wendy azole-trime 9-23 tablet by ity of thoprim 00:00: mouth [place] 800-160 mg 00 every 12 Medic al per tablet (twelve) Branc h hours. sulfamethox 2022-0 Yes 1{tbl} Take 1 Un wendy azole-trime 9-23 tablet by ity of thoprim 00:00: mouth [place] 800-160 mg 00 every 12 Medic al per tablet (twelve) Branc h hours. sulfamethox 2022-0 Yes 1{tbl} Take 1 Un wendy azole-trime 9-23 tablet by ity of thoprim 00:00: mouth [place] 800-160 mg 00 every 12 Medic al per tablet (twelve) Branc h hours. sulfamethox 2022-0 Yes 1{tbl} Take 1 Un wendy azole-trime 9-23 tablet by ity of thoprim 00:00: mouth [place] 800-160 mg 00 every 12 Medic al per tablet (twelve) Branc h hours. sulfamethox 2022-0 Yes 1{tbl} Take 1 Un wendy azole-trime 9-23 tablet by ity of thoprim 00:00: mouth [place] 800-160 mg 00 every 12 Medic al per tablet (twelve) Branc h hours. sulfamethox 2022-0 Yes 1{tbl} Take 1 Un wendy azole-trime 9-23 tablet by ity of thoprim 00:00: mouth [place] 800-160 mg 00 every 12 Medic al per tablet (twelve) Branc h hours. sulfamethox 2022-0 Yes 1{tbl} Take 1 Un wendy azole-trime 9-23 tablet by ity of thoprim 00:00: mouth [place] 800-160 mg 00 every 12 Medic al per tablet (twelve) Branc h hours. sulfamethox 2022-0 Yes 1{tbl} Take 1 Un wendy azole-trime 9-23 tablet by ity of thoprim 00:00: mouth [place] 800-160 mg 00 every 12 Medic al per tablet (twelve) Branc h hours. sulfamethox 2022-0 Yes 1{tbl} Take 1 Un wendy azole-trime 9-23 tablet by ity of thoprim 00:00: mouth [place] 800-160 mg 00 every 12 Medic al per tablet (twelve) Branc h hours. sulfamethox 2022-0 Yes 1{tbl} Take 1 Un wendy azole-trime 9-23 tablet by ity of thoprim 00:00: mouth [place] 800-160 mg 00 every 12 Medic al per tablet (twelve) Branc h hours. sulfamethox 2022-0 Yes 1{tbl} Take 1 Un wendy azole-trime 9-23 tablet by ity of thoprim 00:00: mouth [place] 800-160 mg 00 every 12 Medic al per tablet (twelve) Branc h hours. sulfamethox 2022-0 Yes 1{tbl} Take 1 Un wendy azole-trime 9-23 tablet by ity of thoprim 00:00: mouth [place] 800-160 mg 00 every 12 Medic al per tablet (twelve) Branc h hours. sulfamethox 2022-0 Yes 1{tbl} Take 1 Un wendy azole-trime 9-23 tablet by ity of thoprim 00:00: mouth [place] 800-160 mg 00 every 12 Medic al per tablet (twelve) Branc h hours. sulfamethox 2022-0 Yes 1{tbl} Take 1 Un wendy azole-trime 9-23 tablet by ity of thoprim 00:00: mouth [place] 800-160 mg 00 every 12 Medic al per tablet (twelve) Branc h hours. sulfamethox 2022-0 Yes 1{tbl} Take 1 Un wendy azole-trime 9-23 tablet by ity of thoprim 00:00: mouth [place] 800-160 mg 00 every 12 Medic al per tablet (twelve) Branc h hours. sulfamethox 2022-0 Yes 1{tbl} Take 1 Un [facility]en[facility] azole-trime 9-23 tablet by ity of thoprim 00:00: mouth [place] 800-160 mg 00 every 12 Medic al per tablet (twelve) Branc h hours. sulfamethox 2022-0 Yes 1{tbl} Take 1 Un [facility] azole-trime 9-23 tablet by ity of thoprim 00:00: mouth [place] 800-160 mg 00 every 12 Medic al per tablet (twelve) Branc h hours. sulfamethox 2022-0 Yes 1{tbl} Take 1 Un [facility]end[facility] azole-trime 9-23 tablet by ity of thoprim 00:00: mouth [place] 800-160 mg 00 every 12 Medic al per tablet (twelve) Branc h hours. sulfamethox 2022-0 Yes 1{tbl} Take 1 Un wendy azole-trime 9-23 tablet by ity of thoprim 00:00: mouth [place] 800-160 mg 00 every 12 Medic al per tablet (twelve) Branc h hours. sulfamethox 2022-0 Yes 1{tbl} Take 1 Un wendy azole-trime 9-23 tablet by ity of thoprim 00:00: mouth [place] 800-160 mg 00 every 12 Medic al per tablet (twelve) Branc h hours. sulfamethox 2022-0 Yes 1{tbl} Take 1 Un wendy azole-trime 9-23 tablet by ity of thoprim 00:00: mouth [place] 800-160 mg 00 every 12 Medic al per tablet (twelve) Branc h hours. sulfamethox 2022-0 Yes 1{tbl} Take 1 Un wendy azole-trime 9-23 tablet by ity of thoprim 00:00: mouth [place] 800-160 mg 00 every 12 Medic al per tablet (twelve) Branc h hours. sulfamethox 2022-0 Yes 1{tbl} Take 1 Un [facility]endy azole-trime 9-23 tablet by ity of thoprim 00:00: mouth [place] 800-160 mg 00 every 12 Medic al per tablet (twelve) Branc h hours. sulfamethox 2022-0 Yes 1{tbl} Take 1 Un wendy azole-trime 9-23 tablet by ity of thoprim 00:00: mouth [place] 800-160 mg 00 every 12 Medic al per tablet (twelve) Branc h hours. sulfamethox 2-0 2023- No 1{tbl} Take 1 U nivers azole-trime 9-23 02-18 tablet by it y of thoprim 00:00: 00:00 mouth [place] 800-160 mg 00 :00 every 12 Medic al per tablet (twelve) Branc h hours. ciprofloxac 2-0 2022- No 500mg Take 500 [facility] in HCl 500 - 10-10 mg by ity of mg tablet 00:00: 00:00 mouth [place] 00 :00 every 12 Medical (twelve) Branch hours. neomycin-po 0 Yes APPLY [facility] lymyxin-dex 9-17 OINTMENT ity of amethasone 00:00: TO THE [place] 3.5 00 LEFT EYE Medical mg/g-10,000 THREE Branch unit/g-0.1 TIMES % DAILY ophthalmic ointment neomycin-po 0 Yes APPLY Unive rs lymyxin-dex 9-17 OINTMENT ity of amethasone 00:00: TO THE [place] 3.5 00 LEFT EYE Medical mg/g-10,000 THREE Branch unit/g-0.1 TIMES % DAILY ophthalmic ointment neomycin-po 2022-0 Yes APPLY Unive rs lymyxin-dex 9-17 OINTMENT ity of amethasone 00:00: TO THE [place] 3.5 00 LEFT EYE Medical mg/g-10,000 THREE Branch unit/g-0.1 TIMES % DAILY ophthalmic ointment neomycin-po 2022-0 Yes APPLY Unive rs lymyxin-dex 9-17 OINTMENT ity of amethasone 00:00: TO THE [place] 3.5 LEFT EYE Medical mg/g-10,000 THREE Branch unit/g-0.1 TIMES % DAILY ophthalmic ointment neomycin-po 2022-0 Yes APPLY Unive rs lymyxin-dex 9-17 OINTMENT ity of amethasone 00:00: TO THE [address] LEFT EYE Medical mg/g-10,000 THREE Branch unit/g-0.1 TIMES % DAILY ophthalmic ointment neomycin-po 2022-0 Yes APPLY Unive rs lymyxin-dex 9-17 OINTMENT ity of amethasone 00:00: TO THE [place] [address] LEFT EYE Medical mg/g-10,000 THREE Branch unit/g-0.1 TIMES % DAILY ophthalmic ointment neomycin-po 2-0 Yes APPLY Unive rs lymyxin-dex 9-17 OINTMENT ity of amethasone 00:00: TO THE [place] [address] LEFT EYE Medical mg/g-10,000 THREE Branch unit/g-0.1 TIMES % DAILY ophthalmic ointment neomycin-po 2022-0 Yes APPLY Unive rs lymyxin-dex 9-17 OINTMENT ity of amethasone 00:00: TO THE [place] [id number] LEFT EYE Medical mg/g-10,000 THREE Branch unit/g-0.1 TIMES % DAILY ophthalmic ointment neomycin-po 2022-0 Yes APPLY Unive rs lymyxin-dex 9-17 OINTMENT ity of amethasone 00:00: TO THE [place] 3.5 LEFT EYE Medical mg/g-10,000 THREE Branch unit/g-0.1 TIMES % DAILY ophthalmic ointment neomycin-po 2022-0 Yes APPLY Unive rs lymyxin-dex 9-17 OINTMENT ity of amethasone 00:00: TO THE [place] 3.5 00 LEFT EYE Medical mg/g-10,000 THREE Branch unit/g-0.1 TIMES % DAILY ophthalmic ointment neomycin-po 2022-0 Yes APPLY Unive rs lymyxin-dex 9-17 OINTMENT ity of amethasone 00:00: TO THE [place] 3.5 00 LEFT EYE Medical mg/g-10,000 THREE Branch unit/g-0.1 TIMES % DAILY ophthalmic ointment neomycin-po 2022-0 Yes APPLY Unive rs lymyxin-dex 9-17 OINTMENT ity of amethasone 00:00: TO THE [place] 3.5 LEFT EYE Medical mg/g-10,000 THREE Branch unit/g-0.1 TIMES % DAILY ophthalmic ointment neomycin-po 2022-0 Yes APPLY Unive rs lymyxin-dex 9-17 OINTMENT ity of amethasone 00:00: TO THE [place] [address].5 LEFT EYE Medical mg/g-10,000 THREE Branch unit/g-0.1 TIMES % DAILY ophthalmic ointment neomycin-po 2021-0 Yes APPLY Unive rs lymyxin-dex 9-17 OINTMENT ity of amethasone 00:00: TO THE [place] [address].5 LEFT EYE Medical mg/g-10,000 THREE Branch unit/g-0.1 TIMES % DAILY ophthalmic ointment neomycin-po 2021-0 Yes APPLY Unive rs lymyxin-dex 9-17 OINTMENT ity of amethasone 00:00: TO THE [place] [address].5 LEFT EYE Medical mg/g-10,000 THREE Branch unit/g-0.1 TIMES % DAILY ophthalmic ointment neomycin-po 2-0 Yes APPLY Unive rs lymyxin-dex 9-17 OINTMENT ity of amethasone 00:00: TO THE [place] [address].5 LEFT EYE Medical mg/g-10,000 THREE Branch unit/g-0.1 TIMES % DAILY ophthalmic ointment neomycin-po 2022-0 Yes APPLY Unive rs lymyxin-dex 9-17 OINTMENT ity of amethasone 00:00: TO THE [place] 3.5 LEFT EYE Medical mg/g-10,000 THREE Branch unit/g-0.1 TIMES % DAILY ophthalmic ointment neomycin-po 2022-0 Yes APPLY Unive rs lymyxin-dex 9-17 OINTMENT ity of amethasone 00:00: TO THE [place] 3.5 00 LEFT EYE Medical mg/g-10,000 THREE Branch unit/g-0.1 TIMES % DAILY ophthalmic ointment neomycin-po 2022-0 Yes APPLY Unive rs lymyxin-dex 9-17 OINTMENT ity of amethasone 00:00: TO THE [place] 3.5 00 LEFT EYE Medical mg/g-10,000 THREE Branch unit/g-0.1 TIMES % DAILY ophthalmic ointment neomycin-po 2022-0 Yes APPLY Unive rs lymyxin-dex 9-17 OINTMENT ity of amethasone 00:00: TO THE [place] 3.5 00 LEFT EYE Medical mg/g-10,000 THREE Branch unit/g-0.1 TIMES % DAILY ophthalmic ointment neomycin-po 2022-0 Yes APPLY Unive rs lymyxin-dex 9-17 OINTMENT ity of amethasone 00:00: TO THE [place] 3.5 00 LEFT EYE Medical mg/g-10,000 THREE Branch unit/g-0.1 TIMES % DAILY ophthalmic ointment neomycin-po 2022-0 Yes APPLY Unive rs lymyxin-dex 9-17 OINTMENT ity of amethasone 00:00: TO THE [place] 3.5 00 LEFT EYE Medical mg/g-10,000 THREE Branch unit/g-0.1 TIMES % DAILY ophthalmic ointment neomycin-po 2-0 Yes APPLY Unive rs lymyxin-dex 9-17 OINTMENT ity of amethasone 00:00: TO THE [place] 3.5 00 LEFT EYE Medical mg/g-10,000 THREE Branch unit/g-0.1 TIMES % DAILY ophthalmic ointment neomycin-po 2022-0 Yes APPLY Unive rs lymyxin-dex 9-17 OINTMENT ity of amethasone 00:00: TO THE [place] 3.5 00 LEFT EYE Medical mg/g-10,000 THREE Branch unit/g-0.1 TIMES % DAILY ophthalmic ointment neomycin-po 2022-0 Yes APPLY Unive rs lymyxin-dex 9-17 OINTMENT ity of amethasone 00:00: TO THE [place] 3.5 00 LEFT EYE Medical mg/g-10,000 THREE Branch unit/g-0.1 TIMES % DAILY ophthalmic ointment neomycin-po 2022-0 Yes APPLY Unive rs lymyxin-dex 9-17 OINTMENT ity of amethasone 00:00: TO THE [place] 3.5 00 LEFT EYE Medical mg/g-10,000 THREE Branch unit/g-0.1 TIMES % DAILY ophthalmic ointment neomycin-po 2-0 Yes APPLY Unive rs lymyxin-dex 9-17 OINTMENT ity of amethasone 00:00: TO THE [place] 3.5 00 LEFT EYE Medical mg/g-10,000 THREE Branch unit/g-0.1 TIMES % DAILY ophthalmic ointment neomycin-po 2-0 Yes APPLY Unive rs lymyxin-dex 9-17 OINTMENT ity of amethasone 00:00: TO THE [place] 3.5 00 LEFT EYE Medical mg/g-10,000 THREE Branch unit/g-0.1 TIMES % DAILY ophthalmic ointment neomycin-po 2021-0 Yes APPLY Unive rs lymyxin-dex 9-17 OINTMENT ity of amethasone 00:00: TO THE [place] [address].5 LEFT EYE Medical mg/g-10,000 THREE Branch unit/g-0.1 TIMES % DAILY ophthalmic ointment neomycin-po 2021-0 Yes APPLY Unive rs lymyxin-dex 9-17 OINTMENT ity of amethasone 00:00: TO THE [place] [address].5 LEFT EYE Medical mg/g-10,000 THREE Branch unit/g-0.1 TIMES % DAILY ophthalmic ointment neomycin-po 2021-0 Yes APPLY Unive rs lymyxin-dex 9-17 OINTMENT ity of amethasone 00:00: TO THE [place] 3.5 LEFT EYE Medical mg/g-10,000 THREE Branch unit/g-0.1 TIMES % DAILY ophthalmic ointment neomycin-po 2021-0 Yes APPLY Unive rs lymyxin-dex 9-17 OINTMENT ity of amethasone 00:00: TO THE [place] 3.5 00 LEFT EYE Medical mg/g-10,000 THREE Branch unit/g-0.1 TIMES % DAILY ophthalmic ointment neomycin-po 2-0 Yes APPLY Unive rs lymyxin-dex 9-17 OINTMENT ity of amethasone 00:00: TO THE [place] 3.5 00 LEFT EYE Medical mg/g-10,000 THREE Branch unit/g-0.1 TIMES % DAILY ophthalmic ointment neomycin-po 2022-0 Yes APPLY Unive rs lymyxin-dex 9-17 OINTMENT ity of amethasone 00:00: TO THE [place] 3.5 00 LEFT EYE Medical mg/g-10,000 THREE Branch unit/g-0.1 TIMES % DAILY ophthalmic ointment neomycin-po 2-0 Yes APPLY Unive rs lymyxin-dex 9-17 OINTMENT ity of amethasone 00:00: TO THE [place] 3.5 LEFT EYE Medical mg/g-10,000 THREE Branch unit/g-0.1 TIMES % DAILY ophthalmic ointment neomycin-po 2021-0 Yes APPLY Unive rs lymyxin-dex 9-17 OINTMENT ity of amethasone 00:00: TO THE [place] 3.5 LEFT EYE Medical mg/g-10,000 THREE Branch unit/g-0.1 TIMES % DAILY ophthalmic ointment neomycin-po 2021-0 Yes APPLY Unive rs lymyxin-dex 9-17 OINTMENT ity of amethasone 00:00: TO THE [place] [address] LEFT EYE Medical mg/g-10,000 THREE Branch unit/g-0.1 TIMES % DAILY ophthalmic ointment neomycin-po 2021-0 Yes APPLY Unive rs lymyxin-dex 9-17 OINTMENT ity of amethasone 00:00: TO THE [place] [address] LEFT EYE Medical mg/g-10,000 THREE Branch unit/g-0.1 TIMES % DAILY ophthalmic ointment neomycin-po 2021-0 Yes APPLY Unive rs lymyxin-dex 9-17 OINTMENT ity of amethasone 00:00: TO THE [place] [address] LEFT EYE Medical mg/g-10,000 THREE Branch unit/g-0.1 TIMES % DAILY ophthalmic ointment neomycin-po 2-0 Yes APPLY Unive rs lymyxin-dex 9-17 OINTMENT ity of amethasone 00:00: TO THE [place] [address].5 LEFT EYE Medical mg/g-10,000 THREE Branch unit/g-0.1 TIMES % DAILY ophthalmic ointment neomycin-po 2-0 Yes APPLY Unive rs lymyxin-dex 9-17 OINTMENT ity of amethasone 00:00: TO THE [place] 3.5 00 LEFT EYE Medical mg/g-10,000 THREE Branch unit/g-0.1 TIMES % DAILY ophthalmic ointment neomycin-po 2021-0 Yes APPLY Unive rs lymyxin-dex 9-17 OINTMENT ity of amethasone 00:00: TO THE [place] 3.5 00 LEFT EYE Medical mg/g-10,000 THREE Branch unit/g-0.1 TIMES % DAILY ophthalmic ointment neomycin-po 2021-0 Yes APPLY Unive rs lymyxin-dex 9-17 OINTMENT ity of amethasone 00:00: TO THE [place] 3.5 00 LEFT EYE Medical mg/g-10,000 THREE Branch unit/g-0.1 TIMES % DAILY ophthalmic ointment neomycin-po 2021-0 Yes APPLY Unive rs lymyxin-dex 9-17 OINTMENT ity of amethasone 00:00: TO THE [place] 3.5 00 LEFT EYE Medical mg/g-10,000 THREE Branch unit/g-0.1 TIMES % DAILY ophthalmic ointment neomycin-po 2021-0 Yes APPLY Unive rs lymyxin-dex 9-17 OINTMENT ity of amethasone 00:00: TO THE [place] 3.5 00 LEFT EYE Medical mg/g-10,000 THREE Branch unit/g-0.1 TIMES % DAILY ophthalmic ointment neomycin-po 2021-0 Yes APPLY Unive rs lymyxin-dex 9-17 OINTMENT ity of amethasone 00:00: TO THE [place] 3.5 00 LEFT EYE Medical mg/g-10,000 THREE Branch unit/g-0.1 TIMES % DAILY ophthalmic ointment neomycin-po 2021-0 Yes APPLY Unive rs lymyxin-dex 9-17 OINTMENT ity of amethasone 00:00: TO THE [place] 3.5 00 LEFT EYE Medical mg/g-10,000 THREE Branch unit/g-0.1 TIMES % DAILY ophthalmic ointment neomycin-po 2021-0 Yes APPLY Unive rs lymyxin-dex 9-17 OINTMENT ity of amethasone 00:00: TO THE [place] 3.5 00 LEFT EYE Medical mg/g-10,000 THREE Branch unit/g-0.1 TIMES % DAILY ophthalmic ointment neomycin-po 2022- No APPLY [facility] lymyxin-dex 12-29 02-18 OINTMENT ity of amethasone 00:00: 00:00 [place] THE [place] 3.5 00 :00 LEFT EYE Medical mg/g-10,000 THREE Branch unit/g-0.1 TIMES % DAILY ophthalmic ointment [facility] 10 Yes [id number] TAKE 1 U nivers mg tablet 9-16 TABLET BY ity o f 00:00: MOUTH [place] 00 DAILY. Medical STOP Branch JARDIANCE. DROPLET PEN 0 Yes [id number] USE [facility] NEEDLE 31 9-16 DIRECTED ity of gauge x 00:00: TO INJECT [place] 5/16" Ndle 00 INSULIN Medica l ONCE DAILY Branch [facility] 10 Yes [id number] TAKE 1 U nivers mg tablet 9-16 TABLET BY ity o f 00:00: MOUTH [place] 00 DAILY. Medical STOP Branch JARDIANCE. DROPLET PEN 0 Yes [id number] USE [facility] NEEDLE 31 9-16 DIRECTED ity of gauge x 00:00: TO INJECT [place] 5/16" Ndle 00 INSULIN Medica l ONCE DAILY Branch [place] [address] 0 Yes [id number] TAKE 1 U nivers mg tablet 9-16 TABLET BY ity o f 00:00: MOUTH [place] 00 DAILY. Medical STOP Branch JARDIANCE. DROPLET PEN 0 Yes [id number] USE [facility] NEEDLE 31 9-16 DIRECTED ity of gauge x 00:00: TO INJECT [place] 5/16" Ndle 00 INSULIN Medica l ONCE DAILY Branch [place] [address] 0 Yes [id number] TAKE 1 U nivers mg tablet 9-16 TABLET BY ity o f 00:00: MOUTH [place] 00 DAILY. Medical STOP Branch JARDIANCE. DROPLET PEN 0 Yes [id number] USE [facility] NEEDLE 31 9-16 DIRECTED ity of gauge x 00:00: TO INJECT [place] 5/16" Ndle 00 INSULIN Medica l ONCE DAILY Branch [place] [address] 0 Yes [id number] TAKE 1 U nivers mg tablet 9-16 TABLET BY ity o f 00:00: MOUTH [place] 00 DAILY. Medical STOP Branch JARDIANCE. DROPLET PEN 0 Yes [id number] USE [facility] NEEDLE 31 9-16 DIRECTED ity of gauge x 00:00: TO INJECT [place] 5/16" Ndle 00 INSULIN Medica l ONCE DAILY Branch [facility] 10 Yes [id number] TAKE 1 U nivers mg tablet 9-16 TABLET BY ity o f 00:00: MOUTH [place] 00 DAILY. Medical STOP Branch JARDIANCE. DROPLET PEN 0 Yes [id number] USE [facility] NEEDLE 31 9-16 DIRECTED ity of gauge x 00:00: TO INJECT [place] 5/16" Ndle 00 INSULIN Medica l ONCE DAILY Branch [place] [address] Yes [id number] TAKE 1 U nivers mg tablet 9-16 TABLET BY ity o f 00:00: MOUTH [place] 00 DAILY. Medical STOP Branch JARDIANCE. DROPLET PEN 0 Yes [id number] USE [facility] NEEDLE 31 9-16 DIRECTED ity of gauge x 00:00: TO INJECT [place] 5/16" Ndle 00 INSULIN Medica l ONCE DAILY Branch [place] [address] Yes [id number] TAKE 1 U nivers mg tablet 9-16 TABLET BY ity o f 00:00: MOUTH [place] 00 DAILY. Medical STOP Branch JARDIANCE. DROPLET PEN 0 Yes [id number] USE [facility] NEEDLE 31 9-16 DIRECTED ity of gauge x 00:00: TO INJECT [place] 5/16" Ndle 00 INSULIN Medica l ONCE DAILY Branch [place] [address] Yes [id number] TAKE 1 U nivers mg tablet 9-16 TABLET BY ity o f 00:00: MOUTH [place] 00 DAILY. Medical STOP Branch JARDIANCE. DROPLET PEN 0 Yes [id number] USE [facility] NEEDLE 31 9-16 DIRECTED ity of gauge x 00:00: TO INJECT [place] 5/16" Ndle 00 INSULIN Medica l ONCE DAILY Branch [place] [address] 0 Yes [id number] TAKE 1 U nivers mg tablet 9-16 TABLET BY ity o f 00:00: MOUTH [place] 00 DAILY. Medical STOP Branch JARDIANCE. DROPLET PEN 0 Yes [id number] USE [facility] NEEDLE 31 9-16 DIRECTED ity of gauge x 00:00: TO INJECT [place] 5/16" Ndle 00 INSULIN Medica l ONCE DAILY Branch [place] [address] 0 Yes [id number] TAKE 1 U nivers mg tablet 9-16 TABLET BY ity o f 00:00: MOUTH [place] 00 DAILY. Medical STOP Branch JARDIANCE. DROPLET PEN 0 Yes [id number] USE [facility] NEEDLE 31 9-16 DIRECTED ity of gauge x 00:00: TO INJECT [place] 5/16" Ndle 00 INSULIN Medica l ONCE DAILY Branch [facility] 10 0 Yes [id number] TAKE 1 U nivers mg tablet 9-16 TABLET BY ity o f 00:00: MOUTH [place] 00 DAILY. Medical STOP Branch JARDIANCE. DROPLET PEN 0 Yes [id number] USE [facility] NEEDLE 31 9-16 DIRECTED ity of gauge x 00:00: TO INJECT [place] 5/16" Ndle 00 INSULIN Medica l ONCE DAILY Branch [place] [address] Yes [id number] TAKE 1 U nivers mg tablet 9-16 TABLET BY ity o f 00:00: MOUTH [place] 00 DAILY. Medical STOP Branch JARDIANCE. DROPLET PEN 0 Yes [id number] USE [facility] NEEDLE 31 9-16 DIRECTED ity of gauge x 00:00: TO INJECT [place] 5/16" Ndle 00 INSULIN Medica l ONCE DAILY Branch [place] [address] Yes [id number] TAKE 1 U nivers mg tablet 9-16 TABLET BY ity o f 00:00: MOUTH [place] 00 DAILY. Medical STOP Branch JARDIANCE. DROPLET PEN 0 Yes [id number] USE [facility] NEEDLE 31 9-16 DIRECTED ity of gauge x 00:00: TO INJECT [place] 5/16" Ndle 00 INSULIN Medica l ONCE DAILY Branch [place] [address] Yes [id number] TAKE 1 U nivers mg tablet 9-16 TABLET BY ity o f 00:00: MOUTH [place] 00 DAILY. Medical STOP Branch JARDIANCE. DROPLET PEN 0 Yes [id number] USE [facility] NEEDLE 31 9-16 DIRECTED ity of gauge x 00:00: TO INJECT [place] 5/16" Ndle 00 INSULIN Medica l ONCE DAILY Branch [place] [address] 0 Yes [id number] TAKE 1 U nivers mg tablet 9-16 TABLET BY ity o f 00:00: MOUTH [place] 00 DAILY. Medical STOP Branch JARDIANCE. DROPLET PEN 0 Yes [id number] USE [facility] NEEDLE 31 9-16 DIRECTED ity of gauge x 00:00: TO INJECT [place] 5/16" Ndle 00 INSULIN Medica l ONCE DAILY Branch [place] [address] Yes [id number] TAKE 1 U nivers mg tablet 9-16 TABLET BY ity o f 00:00: MOUTH [place] 00 DAILY. Medical STOP Branch JARDIANCE. DROPLET PEN 0 Yes [id number] USE [facility] NEEDLE 31 9-16 DIRECTED ity of gauge x 00:00: TO INJECT [place] 5/16" Ndle 00 INSULIN Medica l ONCE DAILY Branch [place] [address] Yes [id number] TAKE 1 U nivers mg tablet 9-16 TABLET BY ity o f 00:00: MOUTH [place] 00 DAILY. Medical STOP Branch JARDIANCE. DROPLET PEN 0 Yes [id number] USE [facility] NEEDLE 31 9-16 DIRECTED ity of gauge x 00:00: TO INJECT [place] 5/16" Ndle 00 INSULIN Medica l ONCE DAILY Branch [place] [address] Yes [id number] TAKE 1 U nivers mg tablet 9-16 TABLET BY ity o f 00:00: MOUTH [place] 00 DAILY. Medical STOP Branch JARDIANCE. DROPLET PEN Yes [id number] USE [facility] NEEDLE 31 9-16 DIRECTED ity of gauge x 00:00: TO INJECT [place] 5/16" Ndle 00 INSULIN Medica l ONCE DAILY Branch [place] [address] Yes [id number] TAKE 1 U nivers mg tablet 9-16 TABLET BY ity o f 00:00: MOUTH [place] 00 DAILY. Medical STOP Branch JARDIANCE. DROPLET PEN 0 Yes [id number] USE [facility] NEEDLE 31 9-16 DIRECTED ity of gauge x 00:00: TO INJECT [place] 5/16" Ndle 00 INSULIN Medica l ONCE DAILY Branch [place] [address] Yes [id number] TAKE 1 U nivers mg tablet 9-16 TABLET BY ity o f 00:00: MOUTH [place] 00 DAILY. Medical STOP Branch JARDIANCE. DROPLET PEN 0 Yes [id number] USE [facility] NEEDLE 31 9-16 DIRECTED ity of gauge x 00:00: TO INJECT [place] 5/16" Ndle 00 INSULIN Medica l ONCE DAILY Branch [place] [address] Yes [id number] TAKE 1 U nivers mg tablet 9-16 TABLET BY ity o f 00:00: MOUTH [place] 00 DAILY. Medical STOP Branch JARDIANCE. DROPLET PEN 0 Yes [id number] USE [facility] NEEDLE 31 9-16 DIRECTED ity of gauge x 00:00: TO INJECT [place] 5/16" Ndle 00 INSULIN Medica l ONCE DAILY Branch [facility] 10 Yes [id number] TAKE 1 U nivers mg tablet 9-16 TABLET BY ity o f 00:00: MOUTH [place] 00 DAILY. Medical STOP Branch JARDIANCE. DROPLET PEN 0 Yes [id number] USE [facility] NEEDLE 31 9-16 DIRECTED ity of gauge x 00:00: TO INJECT [place] 5/16" Ndle 00 INSULIN Medica l ONCE DAILY Branch [place] [address] Yes [id number] TAKE 1 U nivers mg tablet 9-16 TABLET BY ity o f 00:00: MOUTH [place] 00 DAILY. Medical STOP Branch JARDIANCE. DROPLET PEN 0 Yes [id number] USE [facility] NEEDLE 31 9-16 DIRECTED ity of gauge x 00:00: TO INJECT [place] 5/16" Ndle 00 INSULIN Medica l ONCE DAILY Branch [place] [address] Yes [id number] TAKE 1 U nivers mg tablet 9-16 TABLET BY ity o f 00:00: MOUTH [place] 00 DAILY. Medical STOP Branch JARDIANCE. DROPLET PEN 0 Yes [id number] USE [facility] NEEDLE 31 9-16 DIRECTED ity of gauge x 00:00: TO INJECT [place] 5/16" Ndle 00 INSULIN Medica l ONCE DAILY Branch [place] [address] 0 Yes [id number] TAKE 1 U nivers mg tablet 9-16 TABLET BY ity o f 00:00: MOUTH [place] 00 DAILY. Medical STOP Branch JARDIANCE. DROPLET PEN 0 Yes [id number] USE [facility] NEEDLE 31 9-16 DIRECTED ity of gauge x 00:00: TO INJECT [place] 5/16" Ndle 00 INSULIN Medica l ONCE DAILY Branch [facility] [place] [address] 0 Yes [id number] TAKE 1 U nivers mg tablet 9-16 TABLET BY ity o f 00:00: MOUTH [place] 00 DAILY. Medical STOP Branch JARDIANCE. DROPLET PEN 0 Yes [id number] USE [facility] NEEDLE 31 9-16 DIRECTED ity of gauge x 00:00: TO INJECT [place] 5/16" Ndle 00 INSULIN Medica l ONCE DAILY Branch [place] [address] Yes [id number] TAKE 1 [facility] nivers mg tablet 9-16 TABLET BY ity o f 00:00: MOUTH [place] 00 DAILY. Medical STOP Branch JARDIANCE. DROPLET PEN 0 Yes [id number] USE [facility] NEEDLE 31 9-16 DIRECTED ity of gauge x 00:00: TO INJECT [place] 5/16" Ndle 00 INSULIN Medica l ONCE DAILY Branch [place] [address] 0 Yes [id number] TAKE 1 [facility] nivers mg tablet 9-16 TABLET BY ity o f 00:00: MOUTH [place] 00 DAILY. Medical STOP Branch JARDIANCE. DROPLET PEN 0 Yes [id number] USE [facility] NEEDLE 31 9-16 DIRECTED ity of gauge x 00:00: TO INJECT [place] 5/16" Ndle 00 INSULIN Medica [facility] ONCE DAILY Branch [place] [address] 0 Yes [id number] TAKE 1 [facility] nivers mg tablet 9-16 TABLET BY ity o f 00:00: MOUTH [place] 00 DAILY. Medical STOP Branch JARDIANCE. DROPLET PEN 0 Yes [id number] USE [facility] NEEDLE 31 9-16 DIRECTED ity of gauge x 00:00: TO INJECT [place] 5/16" Ndle 00 INSULIN Medica l ONCE DAILY Branch [place] [address] 0 Yes [id number] TAKE 1 U nivers mg tablet 9-16 TABLET BY ity o f 00:00: MOUTH [place] 00 DAILY. Medical STOP Branch JARDIANCE. DROPLET PEN 0 Yes [id number] USE [facility] NEEDLE 31 9-16 DIRECTED ity of gauge x 00:00: TO INJECT [place] 5/16" Ndle 00 INSULIN Medica l ONCE DAILY Branch [place] [address] 0 Yes [id number] TAKE 1 [facility] nivers mg tablet 9-16 TABLET BY ity o f 00:00: MOUTH [place] 00 DAILY. Medical STOP Branch JARDIANCE. DROPLET PEN 2021-0 Yes [id number] USE [facility] NEEDLE 31 9-16 DIRECTED ity of gauge x 00:00: TO INJECT [place] 5/16" Ndle 00 INSULIN Medica l ONCE DAILY Branch [place] [address] 0 Yes [id number] TAKE 1 [facility] nivers mg tablet 9-16 TABLET BY ity o f 00:00: MOUTH [place] 00 DAILY. Medical STOP Branch JARDIANCE. DROPLET PEN 2021-0 Yes [id number] USE [facility] NEEDLE 31 9-16 DIRECTED ity of gauge x 00:00: TO INJECT [place] 5/16" Ndle 00 INSULIN Medica l ONCE DAILY Branch [facility] 10 Yes [id number] TAKE 1 U nivers mg tablet 9-16 TABLET BY ity o f 00:00: MOUTH [place] 00 DAILY. Medical STOP Branch JARDIANCE. DROPLET PEN 0 Yes [id number] USE [facility] NEEDLE 31 9-16 DIRECTED ity of gauge x 00:00: TO INJECT [place] 5/16" Ndle 00 INSULIN Medica l ONCE DAILY Branch [place] [address] 0 Yes [id number] TAKE 1 U nivers mg tablet 9-16 TABLET BY ity o f 00:00: MOUTH [place] 00 DAILY. Medical STOP Branch JARDIANCE. DROPLET PEN 0 Yes [id number] USE [facility] NEEDLE 31 9-16 DIRECTED ity of gauge x 00:00: TO INJECT [place] 5/16" Ndle 00 INSULIN Medica l ONCE DAILY Branch [place] [address] 0 Yes [id number] TAKE 1 [facility] nivers mg tablet 9-16 TABLET BY ity o f 00:00: MOUTH [place] 00 DAILY. Medical STOP Branch JARDIANCE. DROPLET PEN 0 Yes [id number] USE [facility] NEEDLE 31 9-16 DIRECTED ity of gauge x 00:00: TO INJECT [place] 5/16" Ndle 00 INSULIN Medica l ONCE DAILY Branch [place] [address] 0 Yes [id number] TAKE 1 [facility] nivers mg tablet 9-16 TABLET BY ity o f 00:00: MOUTH [place] 00 DAILY. Medical STOP Branch JARDIANCE. DROPLET PEN 0 Yes [id number] USE [facility] NEEDLE 31 9-16 DIRECTED ity of gauge x 00:00: TO INJECT [place] 5/16" Ndle 00 INSULIN Medica l ONCE DAILY Branch [place] [address] 0 Yes [id number] TAKE 1 [facility] nivers mg tablet 9-16 TABLET BY ity o f 00:00: MOUTH [place] 00 DAILY. Medical STOP Branch JARDIANCE. DROPLET PEN 0 Yes [id number] USE [facility] NEEDLE 31 9-16 DIRECTED ity of gauge x 00:00: TO INJECT [place] 5/16" Ndle 00 INSULIN Medica l ONCE DAILY Branch [facility] 10 0 Yes [id number] TAKE 1 U nivers mg tablet 9-16 TABLET BY ity o f 00:00: MOUTH [place] 00 DAILY. Medical STOP Branch JARDIANCE. DROPLET PEN Yes [id number] USE [facility] NEEDLE 31 9-16 DIRECTED ity of gauge x 00:00: TO INJECT [place] 5/16" Ndle 00 INSULIN Medica l ONCE DAILY Branch [place] [address] Yes [id number] TAKE 1 [facility] nivers mg tablet 9-16 TABLET BY ity o f 00:00: MOUTH [place] 00 DAILY. Medical STOP Branch JARDIANCE. DROPLET PEN Yes [id number] USE [facility] NEEDLE 31 9-16 DIRECTED ity of gauge x 00:00: TO INJECT [place] 5/16" Ndle 00 INSULIN Medica l ONCE DAILY Branch [place] [address] Yes [id number] TAKE 1 U nivers mg tablet 9-16 TABLET BY ity o f 00:00: MOUTH [place] 00 DAILY. Medical STOP Branch JARDIANCE. DROPLET PEN Yes [id number] USE [facility] NEEDLE 31 9-16 DIRECTED ity of gauge x 00:00: TO INJECT [place] 5/16" Ndle 00 INSULIN Medica l ONCE DAILY Branch [place] [address] Yes [id number] TAKE 1 U nivers mg tablet 9-16 TABLET BY ity o f 00:00: MOUTH [place] 00 DAILY. Medical STOP Branch JARDIANCE. DROPLET PEN Yes [id number] USE [facility] NEEDLE 31 9-16 DIRECTED ity of gauge x 00:00: TO INJECT [place] 5/16" Ndle 00 INSULIN Medica l ONCE DAILY Branch [place] [address] Yes [id number] TAKE 1 [facility] nivers mg tablet 9-16 TABLET BY ity o f 00:00: MOUTH [place] 00 DAILY. Medical STOP Branch JARDIANCE. DROPLET PEN 0 Yes [id number] USE [facility] NEEDLE 31 9-16 DIRECTED ity of gauge x 00:00: TO INJECT [place] 5/16" Ndle 00 INSULIN Medica l ONCE DAILY Branch [place] [address] Yes [id number] TAKE 1 [facility] nivers mg tablet 9-16 TABLET BY ity o f 00:00: MOUTH [place] 00 DAILY. Medical STOP Branch JARDIANCE. DROPLET PEN 0 Yes [id number] USE [facility] NEEDLE 31 9-16 DIRECTED ity of gauge x 00:00: TO INJECT [place] 5/16" Ndle 00 INSULIN Medica l ONCE DAILY Branch [place] [address] 2022-0 Yes [id number] TAKE 1 U nivers mg tablet 9-16 TABLET BY ity o f 00:00: MOUTH [place] 00 DAILY. Medical STOP Branch JARDIANCE. DROPLET PEN 2021-0 Yes [id number] USE [facility] NEEDLE 31 9-16 DIRECTED ity of gauge x 00:00: TO INJECT [place] 5/16" Ndle 00 INSULIN Medica l ONCE DAILY Branch [facility] 10 0 Yes [id number] TAKE 1 U nivers mg tablet 9-16 TABLET BY ity o f 00:00: MOUTH [place] 00 DAILY. Medical STOP Branch JARDIANCE. DROPLET PEN 2021-0 Yes [id number] USE [facility] NEEDLE 31 9-16 DIRECTED ity of gauge x 00:00: TO INJECT [place] 5/16" Ndle 00 INSULIN Medica l ONCE DAILY Branch [place] [address] 0 Yes [id number] TAKE 1 U nivers mg tablet 9-16 TABLET BY ity o f 00:00: MOUTH [place] 00 DAILY. Medical STOP Branch JARDIANCE. DROPLET PEN 2021-0 Yes [id number] USE [facility] NEEDLE 31 9-16 DIRECTED ity of gauge x 00:00: TO INJECT [place] 5/16" Ndle 00 INSULIN Medica l ONCE DAILY Branch [place] [address] 0 Yes [id number] TAKE 1 [facility] nivers mg tablet 9-16 TABLET BY ity o f 00:00: MOUTH [place] 00 DAILY. Medical STOP Branch JARDIANCE. DROPLET PEN 2021-0 Yes [id number] USE [facility] NEEDLE 31 9-16 DIRECTED ity of gauge x 00:00: TO INJECT [place] 5/16" Ndle 00 INSULIN Medica l ONCE DAILY Branch [place] [address] 0 Yes [id number] TAKE 1 [facility] nivers mg tablet 9-16 TABLET BY ity o f 00:00: MOUTH [place] 00 DAILY. Medical STOP Branch JARDIANCE. DROPLET PEN 2021-0 Yes [id number] USE [facility] NEEDLE 31 9-16 DIRECTED ity of gauge x 00:00: TO INJECT [place] 5/16" Ndle 00 INSULIN Medica l ONCE DAILY Branch [place] [address] 0 Yes [id number] TAKE 1 U nivers mg tablet 9-16 TABLET BY ity o f 00:00: MOUTH [place] 00 DAILY. Medical STOP Branch JARDIANCE. DROPLET PEN 2021-0 Yes [id number] USE [facility] NEEDLE 31 9-16 DIRECTED ity of gauge x 00:00: TO INJECT [place] 5/16" Ndle 00 INSULIN Medica l ONCE DAILY Branch [facility] 10 0 Yes [id number] TAKE 1 U nivers mg tablet 9-16 TABLET BY ity o f 00:00: MOUTH [place] 00 DAILY. Medical STOP Branch JARDIANCE. DROPLET PEN 0 Yes [id number] USE [facility] NEEDLE 31 9-16 DIRECTED ity of gauge x 00:00: TO INJECT [place] 5/16" Ndle 00 INSULIN Medica l ONCE DAILY Branch [facility] 10 0 Yes [id number] TAKE 1 U nivers mg tablet 9-16 TABLET BY ity o f 00:00: MOUTH [place] 00 DAILY. Medical STOP Branch JARDIANCE. DROPLET PEN 0 Yes [id number] USE [facility] NEEDLE 31 9-16 DIRECTED ity of gauge x 00:00: TO INJECT [place] 5/16" Ndle 00 INSULIN Medica l ONCE DAILY Branch [facility] 10 0 Yes [id number] TAKE 1 U nivers mg tablet 9-16 TABLET BY ity o f 00:00: MOUTH [place] 00 DAILY. Medical STOP Branch JARDIANCE. DROPLET PEN 0 Yes [id number] USE [facility] NEEDLE 31 9-16 DIRECTED ity of gauge x 00:00: TO INJECT [place] 5/16" Ndle 00 INSULIN Medica l ONCE DAILY Branch DROPLET PEN 2021-0 Yes [id number] USE [facility] NEEDLE 31 9-16 DIRECTED ity of gauge x 00:00: TO INJECT [place] 5/16" [place] 00 INSULIN Medica l ONCE DAILY Branch DROPLET PEN 2021-0 Yes [id number] USE [facility] NEEDLE 31 9-16 DIRECTED ity of gauge x 00:00: TO INJECT [place] 5/16" [place] 00 INSULIN Medica l ONCE DAILY Branch DROPLET PEN 2021-0 Yes [id number] USE [facility] NEEDLE 31 9-16 DIRECTED ity of gauge x 00:00: TO INJECT [place] 5/16" N[place] 00 INSULIN Medica l ONCE DAILY Branch DROPLET PEN 2021-0 Yes [id number] USE [facility] NEEDLE 31 9-16 DIRECTED ity of gauge x 00:00: TO INJECT [place] 5/16" Ndle 00 INSULIN Medica l ONCE DAILY Branch DROPLET PEN 2021-0 Yes [id number] USE [facility] NEEDLE 31 9-16 DIRECTED ity of gauge x 00:00: TO INJECT [place] 5/16" Ndle 00 INSULIN Medica l ONCE DAILY Branch DROPLET PEN 2-0 Yes [id number] USE [facility] NEEDLE 31 9-16 DIRECTED ity of gauge x 00:00: TO INJECT [place] 5/16" Ndle 00 INSULIN Medica l ONCE DAILY Branch DROPLET PEN 2-0 Yes [id number] USE [facility] NEEDLE 31 9-16 DIRECTED ity of gauge x 00:00: TO INJECT [place] 5/16" Ndle 00 INSULIN Medica l ONCE DAILY Branch DROPLET PEN 2-0 Yes [id number] USE [facility] NEEDLE 31 9-16 DIRECTED ity of gauge x 00:00: TO INJECT [place] 5/16" Ndle 00 INSULIN Medica l ONCE DAILY Branch DROPLET PEN 2-0 Yes [id number] USE [facility] NEEDLE 31 9-16 DIRECTED ity of gauge x 00:00: TO INJECT [place] 5/16" Ndle 00 INSULIN Medica l ONCE DAILY Branch DROPLET PEN 2-0 Yes [id number] USE [facility] NEEDLE 31 9-16 DIRECTED ity of gauge x 00:00: TO INJECT [place] 5/16" Ndle 00 INSULIN Medica l ONCE DAILY Branch DROPLET PEN 2-0 Yes [id number] USE [facility] NEEDLE 31 9-16 DIRECTED ity of gauge x 00:00: TO INJECT [place] 5/16" Ndle 00 INSULIN Medica l ONCE DAILY Branch DROPLET PEN 2-0 Yes [id number] USE [facility] NEEDLE 31 9-16 DIRECTED ity of gauge x 00:00: TO INJECT [place] 5/16" Ndle 00 INSULIN Medica l ONCE DAILY Branch DROPLET PEN 2-0 Yes [id number] USE [facility] NEEDLE 31 9-16 DIRECTED ity of gauge x 00:00: TO INJECT [place] 5/16" [place] 00 INSULIN Medica l ONCE DAILY Branch DROPLET PEN 2-0 Yes [id number] USE [facility] NEEDLE 31 9-16 DIRECTED ity of gauge x 00:00: TO INJECT [place] 5/16" [place] 00 INSULIN Medica l ONCE DAILY Branch DROPLET PEN 2-0 Yes [id number] USE [facility] NEEDLE 31 9-16 DIRECTED ity of gauge x 00:00: TO INJECT [place] 5/16" Ndle 00 INSULIN Medica l ONCE DAILY Branch DROPLET PEN 2-0 Yes [id number] USE [facility] NEEDLE 31 9-16 DIRECTED ity of gauge x 00:00: TO INJECT [place] 5/16" [place] 00 INSULIN Medica l ONCE DAILY Branch DROPLET PEN 2021-0 Yes [id number] USE [facility] NEEDLE 31 9-16 DIRECTED ity of gauge x 00:00: TO INJECT [place] 5/16" [place] 00 INSULIN Medica l ONCE DAILY Branch DROPLET PEN 2021-0 Yes [id number] USE [facility] NEEDLE 31 9-16 DIRECTED ity of gauge x 00:00: TO INJECT [place] 5/16" [place] 00 INSULIN Medica l ONCE DAILY Branch DROPLET PEN 2021-0 Yes [id number] USE [facility] NEEDLE 31 9-16 DIRECTED ity of gauge x 00:00: TO INJECT [place] 5/16" [place] 00 INSULIN Medica l ONCE DAILY Branch DROPLET PEN 2021-0 Yes [id number] USE [facility] NEEDLE 31 9-16 DIRECTED ity of gauge x 00:00: TO INJECT [place] 5/16" [place] 00 INSULIN Medica l ONCE DAILY Branch DROPLET PEN 2021-0 Yes [id number] USE [facility] NEEDLE 31 9-16 DIRECTED ity of gauge x 00:00: TO INJECT [place] 5/16" [place] 00 INSULIN Medica l ONCE DAILY Branch DROPLET PEN 2021-0 Yes [id number] USE [facility] NEEDLE 31 9-16 DIRECTED ity of gauge x 00:00: TO INJECT [place] 5/16" [place] 00 INSULIN Medica l ONCE DAILY Branch DROPLET PEN 2021-0 Yes [id number] USE [facility] NEEDLE 31 9-16 DIRECTED ity of gauge x 00:00: TO INJECT [place] 5/16" [place] 00 INSULIN Medica l ONCE DAILY Branch DROPLET PEN 2021-0 Yes [id number] USE [facility] NEEDLE 31 9-16 DIRECTED ity of gauge x 00:00: TO INJECT [place] 5/16" Ndle 00 INSULIN Medica l ONCE DAILY Branch DROPLET PEN 2021-0 Yes [id number] USE [facility] NEEDLE 31 9-16 DIRECTED ity of gauge x 00:00: TO INJECT [place] 5/16" Ndle 00 INSULIN Medica l ONCE DAILY Branch DROPLET PEN 2021-0 Yes [id number] USE [facility] NEEDLE 31 9-16 DIRECTED ity of gauge x 00:00: TO INJECT [place] 5/16" Ndle 00 INSULIN Medica l ONCE DAILY Branch DROPLET PEN 2-0 Yes [id number] USE [facility] NEEDLE 31 9-16 DIRECTED ity of gauge x 00:00: TO INJECT [place] 5/16" [place] 00 INSULIN Medica l ONCE DAILY Branch DROPLET PEN Yes [id number] USE [facility] NEEDLE 31 9-16 DIRECTED ity of gauge x 00:00: TO INJECT [place] 5/16" Ndle 00 INSULIN Medica l ONCE DAILY Branch DROPLET PEN Yes [id number] USE [facility] NEEDLE 31 9-16 DIRECTED ity of gauge x 00:00: TO INJECT [place] 5/16" [place] 00 INSULIN Medica l ONCE DAILY Branch DROPLET PEN Yes [id number] USE [facility] NEEDLE 31 9-16 DIRECTED ity of gauge x 00:00: TO INJECT [place] 5/16" [place]dle 00 INSULIN Medica l ONCE DAILY Branch DROPLET PEN Yes [id number] USE [facility] NEEDLE 31 9-16 DIRECTED ity of gauge x 00:00: TO INJECT [place] 5/16" [place] 00 INSULIN Medica l ONCE DAILY Branch DROPLET PEN Yes [id number] USE [facility] NEEDLE 31 9-16 DIRECTED ity of gauge x 00:00: TO INJECT [place] 5/16" [place] 00 INSULIN Medica l ONCE DAILY Branch DROPLET PEN 2022- No [id number] USE [facility] NEEDLE 31 9-16 04-28 DIRECTED ity o f gauge x 00:00: 00:00 [place]JECT [place] 5/16" N[place] 00 :00 INSULIN Medica l ONCE DAILY Branch [facility] 10 2022- No [id number] TAKE 1 [facility] mg tablet 12-28-14 TABLET BY ity of 00:00: 00:00 MOUTH [place] 00 :00 DAILY. Medical STOP Branch JARDIANCE. rosuvastati Yes [id number] TAKE 1 [facility] n 20 mg 8-21 TABLET AT ity of tablet 00:00: BEDTIME, [place] 00 STOP Medical TAKING Branch ATORVASTAT IN rosuvastati Yes [id number] TAKE 1 [facility] n 20 mg 8-21 TABLET AT ity of tablet 00:00: BEDTIME, [place] 00 STOP Medical TAKING Branch ATORVASTAT IN rosuvastati Yes [id number] TAKE 1 [facility] n 20 mg 8-21 TABLET AT ity of tablet 00:00: BEDTIME, [place] 00 STOP Medical TAKING Branch ATORVASTAT IN rosuvastati Yes [id number] TAKE 1 [facility] n 20 mg 8-21 TABLET AT ity of tablet 00:00: BEDTIME, [place] [address] STOP Medical TAKING Branch ATORVASTAT IN rosuvastati 0 Yes [id number] TAKE 1 [facility] n 20 mg 8-21 TABLET AT ity of tablet 00:00: BEDTIME, [place] STOP Medical TAKING Branch ATORVASTAT IN rosuvastati 0 Yes [id number] TAKE 1 [facility] n 20 mg 8-21 TABLET AT ity of tablet 00:00: BEDTIME, [place] [address] STOP Medical TAKING Branch ATORVASTAT IN rosuvastati 0 Yes [id number] TAKE 1 [facility] n 20 mg 8-21 TABLET AT ity of tablet 00:00: BEDTIME, [place] [address] STOP Medical TAKING Branch ATORVASTAT IN rosuvastati Yes [id number] TAKE 1 [facility] n 20 mg 8-21 TABLET AT ity of tablet 00:00: BEDTIME, [place] [address] STOP Medical TAKING Branch ATORVASTAT IN rosuvastati 0 Yes [id number] TAKE 1 [facility] n 20 mg 8-21 TABLET AT ity of tablet 00:00: BEDTIME, [place] [address] STOP Medical TAKING Branch ATORVASTAT IN rosuvastati 0 Yes [id number] TAKE 1 [facility] n 20 mg 8-21 TABLET AT ity of tablet 00:00: BEDTIME, [place] [address] STOP Medical TAKING Branch ATORVASTAT IN rosuvastati 0 Yes [id number] TAKE 1 [facility] n 20 mg 8-21 TABLET AT ity of tablet 00:00: BEDTIME, [place] [address] STOP Medical TAKING Branch ATORVASTAT IN rosuvastati 0 Yes [id number] TAKE 1 [facility] n 20 mg 8-21 TABLET AT ity of tablet 00:00: BEDTIME, [place] [address] STOP Medical TAKING Branch ATORVASTAT IN rosuvastati 0 Yes [id number] TAKE 1 [facility] n 20 mg 8-21 TABLET AT ity of tablet 00:00: BEDTIME, [place] [address] STOP Medical TAKING Branch ATORVASTAT IN rosuvastati 0 Yes [id number] TAKE 1 [facility] n 20 mg 8-21 TABLET AT ity of tablet 00:00: BEDTIME, [place] [address] STOP Medical TAKING Branch ATORVASTAT IN rosuvastati 0 Yes [id number] TAKE 1 [facility] n 20 mg 8-21 TABLET AT ity of tablet 00:00: BEDTIME, [place] STOP Medical TAKING Branch ATORVASTAT IN rosuvastati 0 Yes [id number] TAKE 1 [facility] n 20 mg 8-21 TABLET AT ity of tablet 00:00: BEDTIME, [place] STOP Medical TAKING Branch ATORVASTAT IN rosuvastati 0 Yes [id number] TAKE 1 [facility] n 20 mg 8-21 TABLET AT ity of tablet 00:00: BEDTIME, [place] STOP Medical TAKING Branch ATORVASTAT IN rosuvastati 0 Yes [id number] TAKE 1 [facility] n 20 mg 8-21 TABLET AT ity of tablet 00:00: BEDTIME, [place] STOP Medical TAKING Branch ATORVASTAT IN rosuvastati Yes [id number] TAKE 1 [facility] n 20 mg 8-21 TABLET AT ity of tablet 00:00: BEDTIME, [place] STOP Medical TAKING Branch ATORVASTAT IN rosuvastati 0 Yes [id number] TAKE 1 [facility] n 20 mg 8-21 TABLET AT ity of tablet 00:00: BEDTIME, [place] STOP Medical TAKING Branch ATORVASTAT IN rosuvastati 0 Yes [id number] TAKE 1 [facility] n 20 mg 8-21 TABLET AT ity of tablet 00:00: BEDTIME, [place] STOP Medical TAKING Branch ATORVASTAT IN rosuvastati 0 Yes [id number] TAKE 1 [facility] n 20 mg 8-21 TABLET AT ity of tablet 00:00: BEDTIME, [place] STOP Medical TAKING Branch ATORVASTAT IN rosuvastati 0 Yes [id number] TAKE 1 [facility] n 20 mg 8-21 TABLET AT ity of tablet 00:00: BEDTIME, [place] STOP Medical TAKING Branch ATORVASTAT IN rosuvastati 2021-0 Yes [id number] TAKE 1 [facility] n 20 mg 8-21 TABLET AT ity of tablet 00:00: BEDTIME, [place] STOP Medical TAKING Branch ATORVASTAT IN rosuvastati 2021-0 Yes [id number] TAKE 1 [facility] n 20 mg 8-21 TABLET AT ity of tablet 00:00: BEDTIME, [place] [address] STOP Medical TAKING Branch ATORVASTAT IN rosuvastati 0 Yes [id number] TAKE 1 [facility] n 20 mg 8-21 TABLET AT ity of tablet 00:00: BEDTIME, [place] [address] STOP Medical TAKING Branch ATORVASTAT IN rosuvastati 0 Yes [id number] TAKE 1 [facility] n 20 mg 8-21 TABLET AT ity of tablet 00:00: BEDTIME, [place] STOP Medical TAKING Branch ATORVASTAT IN rosuvastati 0 Yes [id number] TAKE 1 [facility] n 20 mg 8-21 TABLET AT ity of tablet 00:00: BEDTIME, [place] STOP Medical TAKING Branch ATORVASTAT IN rosuvastati 0 Yes [id number] TAKE 1 [facility] n 20 mg 8-21 TABLET AT ity of tablet 00:00: BEDTIME, [place] STOP Medical TAKING Branch ATORVASTAT IN rosuvastati Yes [id number] TAKE 1 [facility] n 20 mg 8-21 TABLET AT ity of tablet 00:00: BEDTIME, [place] STOP Medical TAKING Branch ATORVASTAT IN rosuvastati Yes [id number] TAKE 1 [facility] n 20 mg 8-21 TABLET AT ity of tablet 00:00: BEDTIME, [place] STOP Medical TAKING Branch ATORVASTAT IN rosuvastati Yes [id number] TAKE 1 [facility] n 20 mg 8-21 TABLET AT ity of tablet 00:00: BEDTIME, [place] STOP Medical TAKING Branch ATORVASTAT IN rosuvastati Yes [id number] TAKE 1 [facility] n 20 mg 8-21 TABLET AT ity of tablet 00:00: BEDTIME, [place] [address] STOP Medical TAKING Branch ATORVASTAT IN rosuvastati 0 Yes [id number] TAKE 1 [facility] n 20 mg 8-21 TABLET AT ity of tablet 00:00: BEDTIME, [place] [address] STOP Medical TAKING Branch ATORVASTAT IN rosuvastati 2021-0 Yes [id number] TAKE 1 [facility] n 20 mg 8-21 TABLET AT ity of tablet 00:00: BEDTIME, [place] STOP Medical TAKING Branch ATORVASTAT IN rosuvastati 0 Yes [id number] TAKE 1 [facility] n 20 mg 8-21 TABLET AT ity of tablet 00:00: BEDTIME, [place] [address] STOP Medical TAKING Branch ATORVASTAT IN rosuvastati 0 Yes [id number] TAKE 1 [facility] n 20 mg 8-21 TABLET AT ity of tablet 00:00: BEDTIME, [place] [address] STOP Medical TAKING Branch ATORVASTAT IN rosuvastati 0 Yes [id number] TAKE 1 [facility] n 20 mg 8-21 TABLET AT ity of tablet 00:00: BEDTIME, [place] STOP Medical TAKING Branch ATORVASTAT IN rosuvastati Yes [id number] TAKE 1 [facility] n 20 mg 8-21 TABLET AT ity of tablet 00:00: BEDTIME, [place] STOP Medical TAKING Branch ATORVASTAT IN rosuvastati Yes [id number] TAKE 1 [facility] n 20 mg 8-21 TABLET AT ity of tablet 00:00: BEDTIME, [place] STOP Medical TAKING Branch ATORVASTAT IN rosuvastati Yes [id number] TAKE 1 [facility] n 20 mg 8-21 TABLET AT ity of tablet 00:00: BEDTIME, [place] [address] STOP Medical TAKING Branch ATORVASTAT IN rosuvastati Yes [id number] TAKE 1 [facility] n 20 mg 8-21 TABLET AT ity of tablet 00:00: BEDTIME, [place] [address] STOP Medical TAKING Branch ATORVASTAT IN rosuvastati Yes [id number] TAKE 1 [facility] n 20 mg 8-21 TABLET AT ity of tablet 00:00: BEDTIME, [place] [address] STOP Medical TAKING Branch ATORVASTAT IN rosuvastati Yes [id number] TAKE 1 [facility] n 20 mg 8-21 TABLET AT ity of tablet 00:00: BEDTIME, [place] [address] STOP Medical TAKING Branch ATORVASTAT IN rosuvastati 0 Yes [id number] TAKE 1 [facility] n 20 mg 8-21 TABLET AT ity of tablet 00:00: BEDTIME, [place] [address] STOP Medical TAKING Branch ATORVASTAT IN rosuvastati 0 Yes [id number] TAKE 1 [facility] n 20 mg 8-21 TABLET AT ity of tablet 00:00: BEDTIME, [place] [address] STOP Medical TAKING Branch ATORVASTAT IN rosuvastati Yes [id number] TAKE 1 [facility] n 20 mg 8-21 TABLET AT ity of tablet 00:00: BEDTIME, [place] [address] STOP Medical TAKING Branch ATORVASTAT IN rosuvastati 0 Yes [id number] TAKE 1 [facility] n 20 mg 8-21 TABLET AT ity of tablet 00:00: BEDTIME, [place] [address] STOP Medical TAKING Branch ATORVASTAT IN rosuvastati Yes [id number] TAKE 1 [facility] n 20 mg 8-21 TABLET AT ity of tablet 00:00: BEDTIME, [place] STOP Medical TAKING Branch ATORVASTAT IN rosuvastati Yes [id number] TAKE 1 [facility] n 20 mg 8-21 TABLET AT ity of tablet 00:00: BEDTIME, [place] 00 STOP Medical TAKING Branch ATORVASTAT IN rosuvastati 3- No [id number] TAKE 1 [facility] n 20 mg 8-21 -03 TABLET AT ity of tablet 00:00: 00:00 BEDTIME, [place] 00 :00 STOP Medical TAKING Branch ATORVASTAT IN fluticasone Yes [id number] 1{spray Use 1 [facility] propionate 8-19 } [place] in ity o f 50 00:00: each [place] mcg/actuati 00 nostril in Me dical on nasal the Branch spray morning. Use 2 spray(s) in each nostril once daily fluticasone Yes [id number] 1{spray Use 1 [facility] propionate 8-19 } [place] in ity o f 50 00:00: each [place] mcg/actuati 00 nostril in Me dical on nasal the Branch spray morning. Use 2 spray(s) in each nostril once daily fluticasone Yes [id number] 1{spray Use 1 [facility] propionate 8-19 } [place] in ity o f 50 00:00: each [place] mcg/actuati 00 nostril in Me dical on nasal the Branch spray morning. Use 2 spray(s) in each nostril once daily fluticasone Yes [id number] 1{spray Use 1 [facility] propionate 8-19 } [place] in ity o f 50 00:00: each [place] mcg/actuati 00 nostril in Me dical on nasal the Branch spray morning. Use 2 spray(s) in each nostril once daily fluticasone Yes [id number] 1{spray Use 1 [facility] propionate 8-19 } [place] in ity o f 50 00:00: each [place] mcg/actuati 00 nostril in Me dical on nasal the Branch spray morning. Use 2 spray(s) in each nostril once daily fluticasone Yes [id number] 1{spray Use 1 [facility] propionate 8-19 } [place] in ity o f 50 00:00: each [place] mcg/actuati 00 nostril in Me dical on nasal the Branch spray morning. Use 2 spray(s) in each nostril once daily fluticasone Yes [id number] 1{spray Use 1 [facility] propionate 8-19 } [place] in ity o f 50 00:00: each [place] mcg/actuati 00 nostril in Me dical on nasal the Branch spray morning. Use 2 spray(s) in each nostril once daily fluticasone Yes [id number] 1{spray Use 1 [facility] propionate 8-19 } [place] in ity o f 50 00:00: each [place] mcg/actuati 00 nostril in Me dical on nasal the Branch spray morning. Use 2 spray(s) in each nostril once daily fluticasone 2021- No [id number] 1{spray Use 1 [facility] propionate 8-19 10-06 } [place] in ity of 50 00:00: 00:00 each [place] mcg/actuati 00 :00 nostril in Me dical on nasal the Branch spray morning. Use 2 spray(s) in each nostril once daily clotrimazol 2021- No [id number] 1{appli Insert 1 [facility] e 1 % 11-28 [id number] cator} Applicator ity of vaginal 00:00: 04:59 into [place] cream 00 :00 vagina at [facility] for 7 days. clotrimazol 2021- No [id number] 1{appli Insert 1 [facility] e 1 % 11-28 [id number] cator} Applicator ity of vaginal 00:00: 04:59 into [place] cream 00 :00 vagina at [facility] for 7 days. clotrimazol 2021- No [id number] 1{appli Insert 1 [facility] e 1 % 11-28 [id number] cator} Applicator ity of vaginal 00:00: 04:59 into [place] cream 00 :00 vagina at [facility] for 7 days. clotrimazol 2021- No [id number] 1{appli Insert 1 [facility] e 1 % 817 12-06 [id number] cator} Applicator ity of vaginal 00:00: 04:59 into [place] cream 00 :00 vagina at [facility] for 7 days. clotrimazol 2021- No [id number] 1{appli Insert 1 [facility] e 1 % 817 12-06 [id number] cator} Applicator ity of vaginal 00:00: 04:59 into [place] cream 00 :00 vagina at [facility] for 7 days. GLIPIZIDE Yes [id number] 10mg TAKE 1 Un wendy XL 10 mg 24 8-12 TABLET BY ity of hr tablet 00:00: MOUTH [place] 00 DAILY WITH Medical BREAKFAST. Branch STOP GLIMEPIRID E. METFORMIN Yes [id number] TAKE 2 [facility] ER 500 mg 8-12 TABLETS [facility] 24 hr 00:00: TWICE [place] tablet 00 DAILY WITH Medical MEALS Branch GLIPIZIDE Yes [id number] 10mg TAKE 1 [facility] XL 10 mg 24 8-12 TABLET BY [facility] hr tablet 00:00: MOUTH [place] 00 DAILY WITH Medical BREAKFAST. Branch STOP GLIMEPIRID E. METFORMIN Yes [id number] TAKE 2 [facility] ER 500 mg 8-12 TABLETS [facility] 24 hr 00:00: TWICE [place] tablet 00 DAILY WITH Medical MEALS Branch GLIPIZIDE Yes [id number] 10mg TAKE 1 [facility] XL 10 mg 24 8-12 TABLET BY [facility] hr tablet 00:00: MOUTH [place] 00 DAILY WITH Medical BREAKFAST. Branch STOP GLIMEPIRID E. METFORMIN Yes [id number] TAKE 2 [facility] ER 500 mg 8-12 TABLETS [facility] 24 hr 00:00: TWICE [place] tablet 00 DAILY WITH Medical MEALS [facility] GLIPIZIDE Yes [id number] 10mg TAKE 1 [facility] [place] XL 10 mg 24 8-12 TABLET BY [facility] hr tablet 00:00: MOUTH [place] 00 DAILY WITH Medical BREAKFAST. Branch STOP GLIMEPIRID E. METFORMIN Yes [id number] TAKE 2 [facility] ER 500 mg 8-12 TABLETS [facility] 24 hr 00:00: TWICE [place] tablet 00 DAILY WITH Medical MEALS [facility] GLIPIZIDE 2021- Yes [id number] 10mg TAKE 1 [facility] XL 10 mg 24 8-12 TABLET BY [facility] hr tablet 00:00: MOUTH [place] 00 DAILY WITH Medical BREAKFAST. Branch STOP GLIMEPIRID E. METFORMIN 2021-0 Yes [id number] TAKE 2 [facility] [place] ER 500 mg 8-12 TABLETS [facility] 24 hr 00:00: TWICE [place] tablet 00 DAILY WITH Medical MEALS [facility] GLIPIZIDE 2021-0 Yes [id number] 10mg TAKE 1 [facility] [place] XL 10 mg 24 8-12 TABLET BY [facility] hr tablet 00:00: MOUTH [place] 00 DAILY WITH Medical BREAKFAST. Branch STOP GLIMEPIRID E. METFORMIN 2021-0 Yes [id number] TAKE 2 [facility] ER 500 mg 8-12 TABLETS [facility] 24 hr 00:00: TWICE [place] tablet 00 DAILY WITH Medical MEALS [facility] GLIPIZIDE 2021- Yes [id number] 10mg TAKE 1 [facility] [place] XL 10 mg 24 8-12 TABLET BY [facility] hr tablet 00:00: MOUTH [place] 00 DAILY WITH Medical BREAKFAST. Branch STOP GLIMEPIRID E. METFORMIN 2021-0 Yes [id number] TAKE 2 [facility] ER 500 mg 8-12 TABLETS [facility] 24 hr 00:00: TWICE [place] tablet 00 DAILY WITH Medical MEALS [facility] GLIPIZIDE 2021-0 Yes [id number] 10mg TAKE 1 [facility] [place] XL 10 mg 24 8-12 TABLET BY [facility] hr tablet 00:00: MOUTH [place] 00 DAILY WITH Medical BREAKFAST. Branch STOP GLIMEPIRID E. METFORMIN 2021-0 Yes [id number] TAKE 2 [facility] ER 500 mg 8-12 TABLETS [facility] 24 hr 00:00: TWICE [place] tablet 00 DAILY WITH Medical MEALS [facility] GLIPIZIDE 2021-0 Yes [id number] 10mg TAKE 1 [facility] [place] XL 10 mg 24 8-12 TABLET BY [facility] hr tablet 00:00: MOUTH [place] 00 DAILY WITH Medical BREAKFAST. Branch STOP GLIMEPIRID E. METFORMIN 2021-0 Yes [id number] TAKE 2 [facility] ER 500 mg 8-12 TABLETS [facility] 24 hr 00:00: TWICE [place] tablet 00 DAILY WITH Medical MEALS [facility] GLIPIZIDE 2021-0 Yes [id number] 10mg TAKE 1 [facility] [place] XL 10 mg 24 8-12 TABLET BY [facility] hr tablet 00:00: MOUTH [place] 00 DAILY WITH Medical BREAKFAST. Branch STOP GLIMEPIRID E. METFORMIN Yes [id number] TAKE 2 [facility] [place] ER 500 mg 8-12 TABLETS [facility] 24 hr 00:00: TWICE [place] tablet 00 DAILY WITH Medical MEALS [facility] GLIPIZIDE Yes [id number] 10mg TAKE 1 [facility] [place] XL 10 mg 24 8-12 TABLET BY [facility] hr tablet 00:00: MOUTH [place] 00 DAILY WITH Medical BREAKFAST. Branch STOP GLIMEPIRID E. METFORMIN Yes [id number] TAKE 2 [facility] ER 500 mg 8-12 TABLETS [facility] 24 hr 00:00: TWICE [place] tablet 00 DAILY WITH Medical MEALS [facility] GLIPIZIDE Yes [id number] 10mg TAKE 1 [facility] [place] XL 10 mg 24 8-12 TABLET BY [facility] hr tablet 00:00: MOUTH [place] 00 DAILY WITH Medical BREAKFAST. Branch STOP GLIMEPIRID E. METFORMIN Yes [id number] TAKE 2 [facility] ER 500 mg 8-12 TABLETS [facility] 24 hr 00:00: TWICE [place] tablet 00 DAILY WITH Medical MEALS [facility] GLIPIZIDE Yes [id number] 10mg TAKE 1 [facility] [place] XL 10 mg 24 8-12 TABLET BY [facility] hr tablet 00:00: MOUTH [place] 00 DAILY WITH Medical BREAKFAST. Branch STOP GLIMEPIRID E. METFORMIN Yes [id number] TAKE 2 [facility] ER 500 mg 8-12 TABLETS [facility] of 24 hr 00:00: TWICE [place] tablet 00 DAILY WITH Medical MEALS [facility] GLIPIZIDE Yes [id number] 10mg TAKE 1 [facility] [place] XL 10 mg 24 8-12 TABLET BY [facility] hr tablet 00:00: MOUTH [place] 00 DAILY WITH Medical BREAKFAST. Branch STOP GLIMEPIRID E. METFORMIN Yes [id number] TAKE 2 [facility] [place] ER 500 mg 8-12 TABLETS [facility] 24 hr 00:00: TWICE [place] tablet 00 DAILY WITH Medical MEALS [facility] GLIPIZIDE Yes [id number] 10mg TAKE 1 [facility] [place] XL 10 mg 24 8-12 TABLET BY [facility] hr tablet 00:00: MOUTH [place] 00 DAILY WITH Medical BREAKFAST. Branch STOP GLIMEPIRID E. METFORMIN Yes [id number] TAKE 2 [facility] ER 500 mg 8-12 TABLETS [facility] 24 hr 00:00: TWICE [place] tablet 00 DAILY WITH Medical MEALS [facility] GLIPIZIDE Yes [id number] 10mg TAKE 1 [facility] [place] XL 10 mg 24 8-12 TABLET BY [facility] hr tablet 00:00: MOUTH [place] 00 DAILY WITH Medical BREAKFAST. Branch STOP GLIMEPIRID E. METFORMIN 0 Yes [id number] TAKE 2 [facility] ER 500 mg 8-12 TABLETS [facility] 24 hr 00:00: TWICE [place] tablet 00 DAILY WITH Medical MEALS Branch GLIPIZIDE Yes [id number] 10mg TAKE 1 [facility] [place] XL 10 mg 24 8-12 TABLET BY [facility] hr tablet 00:00: MOUTH [place] 00 DAILY WITH Medical BREAKFAST. Branch STOP GLIMEPIRID E. METFORMIN Yes [id number] TAKE 2 [facility] [place] ER 500 mg 8-12 TABLETS [facility] 24 hr 00:00: TWICE [place] tablet 00 DAILY WITH Medical MEALS Branch GLIPIZIDE Yes [id number] 10mg TAKE 1 [facility] [place] XL 10 mg 24 8-12 TABLET BY [facility] hr tablet 00:00: MOUTH [place] 00 DAILY WITH Medical BREAKFAST. Branch STOP GLIMEPIRID E. METFORMIN Yes [id number] TAKE 2 [facility] ER 500 mg 8-12 TABLETS [facility] 24 hr 00:00: TWICE [place] tablet 00 DAILY WITH Medical MEALS Branch GLIPIZIDE Yes [id number] 10mg TAKE 1 [facility] [place] XL 10 mg 24 8-12 TABLET BY [facility] hr tablet 00:00: MOUTH [place] 00 DAILY WITH Medical BREAKFAST. Branch STOP GLIMEPIRID E. METFORMIN 0 Yes [id number] TAKE 2 [facility] ER 500 mg 8-12 TABLETS [facility] 24 hr 00:00: TWICE [place] tablet 00 DAILY WITH Medical MEALS Branch GLIPIZIDE 2021- Yes [id number] 10mg TAKE 1 [facility] [place] XL 10 mg 24 8-12 TABLET BY [facility] hr tablet 00:00: MOUTH [place] 00 DAILY WITH Medical BREAKFAST. Branch STOP GLIMEPIRID E. METFORMIN Yes [id number] TAKE 2 [facility] ER 500 mg 8-12 TABLETS [facility] 24 hr 00:00: TWICE [place] tablet 00 DAILY WITH Medical MEALS [facility] GLIPIZIDE 2021- Yes [id number] 10mg TAKE 1 [facility] [place] XL 10 mg 24 8-12 TABLET BY [facility] hr tablet 00:00: MOUTH [place] 00 DAILY WITH Medical BREAKFAST. Branch STOP GLIMEPIRID E. METFORMIN 2021-0 Yes [id number] TAKE 2 [facility] ER 500 mg 8-12 TABLETS [facility] 24 hr 00:00: TWICE [place] tablet 00 DAILY WITH Medical MEALS Branch GLIPIZIDE 0 Yes [id number] 10mg TAKE 1 [facility] [place] XL 10 mg 24 8-12 TABLET BY [facility] hr tablet 00:00: MOUTH [place] 00 DAILY WITH Medical BREAKFAST. Branch STOP GLIMEPIRID E. METFORMIN 0 Yes [id number] TAKE 2 [facility] ER 500 mg 8-12 TABLETS [facility] 24 hr 00:00: TWICE [place] tablet 00 DAILY WITH Medical MEALS Branch GLIPIZIDE Yes [id number] 10mg TAKE 1 [facility] [place] XL 10 mg 24 8-12 TABLET BY [facility] hr tablet 00:00: MOUTH [place] 00 DAILY WITH Medical BREAKFAST. Branch STOP GLIMEPIRID E. METFORMIN Yes [id number] TAKE 2 [facility] ER 500 mg 8-12 TABLETS [facility] 24 hr 00:00: TWICE [place] tablet 00 DAILY WITH Medical MEALS Branch GLIPIZIDE Yes [id number] 10mg TAKE 1 [facility] XL 10 mg 24 8-12 TABLET BY [facility] hr tablet 00:00: MOUTH [place] 00 DAILY WITH Medical BREAKFAST. Branch STOP GLIMEPIRID E. METFORMIN 2021-0 Yes [id number] TAKE 2 [facility] ER 500 mg 8-12 TABLETS [facility] 24 hr 00:00: TWICE [place] tablet 00 DAILY WITH Medical MEALS Branch GLIPIZIDE 2021-0 Yes [id number] 10mg TAKE 1 [facility] XL 10 mg 24 8-12 TABLET BY [facility] hr tablet 00:00: MOUTH [place] 00 DAILY WITH Medical BREAKFAST. Branch STOP GLIMEPIRID E. METFORMIN 2021-0 Yes [id number] TAKE 2 [facility] ER 500 mg 8-12 TABLETS [facility] of 24 hr 00:00: TWICE [place] tablet 00 DAILY WITH Medical MEALS Branch GLIPIZIDE 2021- Yes [id number] 10mg TAKE 1 [facility] XL 10 mg 24 8-12 TABLET BY [facility] hr tablet 00:00: MOUTH [place] 00 DAILY WITH Medical BREAKFAST. Branch STOP GLIMEPIRID E. METFORMIN 2021- Yes [id number] TAKE 2 [facility] ER 500 mg 8-12 TABLETS [facility] of 24 hr 00:00: TWICE [place] tablet 00 DAILY WITH Medical MEALS Branch GLIPIZIDE 2021-0 Yes [id number] 10mg TAKE 1 [facility] XL 10 mg 24 8-12 TABLET BY [facility] hr tablet 00:00: MOUTH [place] 00 DAILY WITH Medical BREAKFAST. Branch STOP GLIMEPIRID E. METFORMIN 2021-0 Yes [id number] TAKE 2 [facility] ER 500 mg 8-12 TABLETS [facility] of 24 hr 00:00: TWICE [place] tablet 00 DAILY WITH Medical MEALS Branch GLIPIZIDE Yes [id number] 10mg TAKE 1 [facility] [place] XL 10 mg 24 8-12 TABLET BY [facility] hr tablet 00:00: MOUTH [place] 00 DAILY WITH Medical BREAKFAST. Branch STOP GLIMEPIRID E. METFORMIN Yes [id number] TAKE 2 [facility] ER 500 mg 8-12 TABLETS [facility] of 24 hr 00:00: TWICE [place] tablet 00 DAILY WITH Medical MEALS Branch GLIPIZIDE Yes [id number] 10mg TAKE 1 [facility] XL 10 mg 24 8-12 TABLET BY [facility] hr tablet 00:00: MOUTH [place] 00 DAILY WITH Medical BREAKFAST. Branch STOP GLIMEPIRID E. METFORMIN 0 Yes [id number] TAKE 2 [facility] ER 500 mg 8-12 TABLETS [facility] of 24 hr 00:00: TWICE [place] tablet 00 DAILY WITH Medical MEALS Branch GLIPIZIDE 2021-0 Yes [id number] 10mg TAKE 1 [facility] [place] XL 10 mg 24 8-12 TABLET BY [facility] hr tablet 00:00: MOUTH [place] 00 DAILY WITH Medical BREAKFAST. Branch STOP GLIMEPIRID E. METFORMIN 2021-0 Yes [id number] TAKE 2 [facility] ER 500 mg 8-12 TABLETS [facility] of 24 hr 00:00: TWICE [place] tablet 00 DAILY WITH Medical MEALS Branch GLIPIZIDE 2021-0 Yes [id number] 10mg TAKE 1 [facility] [place] XL 10 mg 24 8-12 TABLET BY [facility] hr tablet 00:00: MOUTH [place] 00 DAILY WITH Medical BREAKFAST. Branch STOP GLIMEPIRID E. METFORMIN 2021- Yes [id number] TAKE 2 [facility] ER 500 mg 8-12 TABLETS [facility] of 24 hr 00:00: TWICE [place] tablet 00 DAILY WITH Medical MEALS Branch GLIPIZIDE 2021- Yes [id number] 10mg TAKE 1 [facility] [place] XL 10 mg 24 8-12 TABLET BY [facility] hr tablet 00:00: MOUTH [place] 00 DAILY WITH Medical BREAKFAST. Branch STOP GLIMEPIRID E. METFORMIN 2021-0 Yes [id number] TAKE 2 [facility] ER 500 mg 8-12 TABLETS [facility] of 24 hr 00:00: TWICE [place] tablet 00 DAILY WITH Medical MEALS Branch GLIPIZIDE 2021-0 Yes [id number] 10mg TAKE 1 [facility] XL 10 mg 24 8-12 TABLET BY [facility] of hr tablet 00:00: MOUTH [place] 00 DAILY WITH Medical BREAKFAST. Branch STOP GLIMEPIRID E. METFORMIN 2021-0 Yes [id number] TAKE 2 [facility] ER 500 mg 8-12 TABLETS [facility] of 24 hr 00:00: TWICE [place] tablet 00 DAILY WITH Medical MEALS Branch GLIPIZIDE 2021- Yes [id number] 10mg TAKE 1 [facility] XL 10 mg 24 8-12 TABLET BY [facility] hr tablet 00:00: MOUTH [place] 00 DAILY WITH Medical BREAKFAST. Branch STOP GLIMEPIRID E. METFORMIN 2021-0 Yes [id number] TAKE 2 [facility] ER 500 mg 8-12 TABLETS [facility] of 24 hr 00:00: TWICE [place] tablet 00 DAILY WITH Medical MEALS Branch GLIPIZIDE 2021-0 Yes [id number] 10mg TAKE 1 [facility] XL 10 mg 24 8-12 TABLET BY [facility] hr tablet 00:00: MOUTH [place] 00 DAILY WITH Medical BREAKFAST. Branch STOP GLIMEPIRID E. METFORMIN 2021-0 Yes [id number] TAKE 2 [facility] ER 500 mg 8-12 TABLETS [facility] 24 hr 00:00: TWICE [place] tablet 00 DAILY WITH Medical MEALS Branch GLIPIZIDE 2021-0 Yes [id number] 10mg TAKE 1 [facility] XL 10 mg 24 8-12 TABLET BY [facility] hr tablet 00:00: MOUTH [place] 00 DAILY WITH Medical BREAKFAST. Branch STOP GLIMEPIRID E. METFORMIN 2021-0 Yes [id number] TAKE 2 [facility] ER 500 mg 8-12 TABLETS [facility] of 24 hr 00:00: TWICE [place] tablet 00 DAILY WITH Medical MEALS Branch GLIPIZIDE 2021-0 Yes [id number] 10mg TAKE 1 [facility] XL 10 mg 24 8-12 TABLET BY [facility] of hr tablet 00:00: MOUTH [place] 00 DAILY WITH Medical BREAKFAST. Branch STOP GLIMEPIRID E. METFORMIN 2021-0 Yes [id number] TAKE 2 [facility] ER 500 mg 8-12 TABLETS [facility] of 24 hr 00:00: TWICE [place] tablet 00 DAILY WITH Medical MEALS Branch GLIPIZIDE 2021-0 Yes [id number] 10mg TAKE 1 [facility] XL 10 mg 24 8-12 TABLET BY [facility] hr tablet 00:00: MOUTH [place] 00 DAILY WITH Medical BREAKFAST. Branch STOP GLIMEPIRID E. METFORMIN 2021-0 Yes [id number] TAKE 2 [facility] ER 500 mg 8-12 TABLETS [facility] of 24 hr 00:00: TWICE [place] tablet 00 DAILY WITH Medical MEALS Branch GLIPIZIDE 2021-0 Yes [id number] 10mg TAKE 1 [facility] XL 10 mg 24 8-12 TABLET BY [facility] of hr tablet 00:00: MOUTH [place] 00 DAILY WITH Medical BREAKFAST. Branch STOP GLIMEPIRID E. METFORMIN 2021-0 Yes [id number] TAKE 2 [facility] ER 500 mg 8-12 TABLETS [facility] of 24 hr 00:00: TWICE [place] tablet 00 DAILY WITH Medical MEALS Branch GLIPIZIDE 2021-0 Yes [id number] 10mg TAKE 1 [facility] XL 10 mg 24 8-12 TABLET BY [facility] hr tablet 00:00: MOUTH [place] 00 DAILY WITH Medical BREAKFAST. Branch STOP GLIMEPIRID E. METFORMIN 2021-0 Yes [id number] TAKE 2 [facility] ER 500 mg 8-12 TABLETS ity of 24 hr 00:00: TWICE [place] tablet 00 DAILY WITH Medical MEALS Branch GLIPIZIDE 2021-0 Yes [id number] 10mg TAKE 1 [facility] XL 10 mg 24 8-12 TABLET BY [facility] hr tablet 00:00: MOUTH [place] 00 DAILY WITH Medical BREAKFAST. Branch STOP GLIMEPIRID E. METFORMIN 2021-0 Yes [id number] TAKE 2 [facility] ER 500 mg 8-12 TABLETS [facility]y of 24 hr 00:00: TWICE [place] tablet 00 DAILY WITH Medical MEALS Branch GLIPIZIDE 2021-0 Yes [id number] 10mg TAKE 1 [facility] XL 10 mg 24 8-12 TABLET BY [facility] hr tablet 00:00: MOUTH [place] 00 DAILY WITH Medical BREAKFAST. Branch STOP GLIMEPIRID E. METFORMIN 2021-0 Yes [id number] TAKE 2 [facility] ER 500 mg 8-12 TABLETS ity of 24 hr 00:00: TWICE [place] tablet 00 DAILY WITH Medical MEALS Branch GLIPIZIDE 2021-0 Yes [id number] 10mg TAKE 1 [facility] XL 10 mg 24 8-12 TABLET BY [facility] hr tablet 00:00: MOUTH [place] 00 DAILY WITH Medical BREAKFAST. Branch STOP GLIMEPIRID E. METFORMIN 0 Yes [id number] TAKE 2 [facility] ER 500 mg 8-12 TABLETS [facility] of 24 hr 00:00: TWICE [place] tablet 00 DAILY WITH Medical MEALS Branch GLIPIZIDE Yes [id number] 10mg TAKE 1 [facility] XL 10 mg 24 8-12 TABLET BY [facility] of hr tablet 00:00: MOUTH [place] 00 DAILY WITH Medical BREAKFAST. Branch STOP GLIMEPIRID E. METFORMIN Yes [id number] TAKE 2 [facility] ER 500 mg 8-12 TABLETS [facility]y of 24 hr 00:00: TWICE [place] tablet 00 DAILY WITH Medical MEALS Branch GLIPIZIDE Yes [id number] 10mg TAKE 1 [facility] [place] XL 10 mg 24 8-12 TABLET BY [facility] of hr tablet 00:00: MOUTH [place] 00 DAILY WITH Medical BREAKFAST. Branch STOP GLIMEPIRID E. METFORMIN Yes [id number] TAKE 2 [facility] ER 500 mg 8-12 TABLETS [facility] of 24 hr 00:00: TWICE [place] tablet 00 DAILY WITH Medical MEALS Branch GLIPIZIDE Yes [id number] 10mg TAKE 1 [facility] [place] XL 10 mg 24 8-12 TABLET BY [facility] of hr tablet 00:00: MOUTH [place] 00 DAILY WITH Medical BREAKFAST. Branch STOP GLIMEPIRID E. METFORMIN Yes [id number] TAKE 2 [facility] ER 500 mg 8-12 TABLETS ity of 24 hr 00:00: TWICE [place] tablet 00 DAILY WITH Medical MEALS Branch GLIPIZIDE 2021-0 Yes [id number] 10mg TAKE 1 [facility] XL 10 mg 24 8-12 TABLET BY [facility] hr tablet 00:00: MOUTH [place] 00 DAILY WITH Medical BREAKFAST. Branch STOP GLIMEPIRID E. METFORMIN 2021- Yes [id number] TAKE 2 [facility] ER 500 mg 8-12 TABLETS [facility] of 24 hr 00:00: TWICE [place] tablet 00 DAILY WITH Medical MEALS Branch GLIPIZIDE 2021- Yes [id number] 10mg TAKE 1 [facility] XL 10 mg 24 8-12 TABLET BY [facility] hr tablet 00:00: MOUTH [place] 00 DAILY WITH Medical BREAKFAST. Branch STOP GLIMEPIRID E. METFORMIN Yes [id number] TAKE 2 [facility] ER 500 mg 8-12 TABLETS [facility] of 24 hr 00:00: TWICE [place] tablet 00 DAILY WITH Medical MEALS Branch GLIPIZIDE Yes [id number] 10mg TAKE 1 [facility] XL 10 mg 24 8-12 TABLET BY [facility] hr tablet 00:00: MOUTH [place] 00 DAILY WITH Medical BREAKFAST. Branch STOP GLIMEPIRID E. METFORMIN Yes [id number] TAKE 2 [facility] ER 500 mg 8-12 TABLETS [facility] of 24 hr 00:00: TWICE [place] tablet 00 DAILY WITH Medical MEALS Branch GLIPIZIDE Yes [id number] 10mg TAKE 1 [facility] [place] XL 10 mg 24 8-12 TABLET BY [facility] hr tablet 00:00: MOUTH [place] 00 DAILY WITH Medical BREAKFAST. Branch STOP GLIMEPIRID E. METFORMIN Yes [id number] TAKE 2 [facility] ER 500 mg 8-12 TABLETS [facility] of 24 hr 00:00: TWICE [place] tablet 00 DAILY WITH Medical MEALS Branch GLIPIZIDE Yes [id number] 10mg TAKE 1 [facility] XL 10 mg 24 8-12 TABLET BY [facility] hr tablet 00:00: MOUTH [place] 00 DAILY WITH Medical BREAKFAST. Branch STOP GLIMEPIRID E. METFORMIN Yes [id number] TAKE 2 [facility] ER 500 mg 8-12 TABLETS [facility] of 24 hr 00:00: TWICE [place] tablet 00 DAILY WITH Medical MEALS Branch GLIPIZIDE Yes [id number] 10mg TAKE 1 [facility] XL 10 mg 24 8-12 TABLET BY [facility] hr tablet 00:00: MOUTH [place] 00 DAILY WITH Medical BREAKFAST. Branch STOP GLIMEPIRID E. METFORMIN 0 Yes [id number] TAKE 2 [facility] ER 500 mg 8-12 TABLETS [facility] of 24 hr 00:00: TWICE [place] tablet 00 DAILY WITH Medical MEALS Branch GLIPIZIDE Yes [id number] 10mg TAKE 1 [facility] XL 10 mg 24 8-12 TABLET BY [facility] hr tablet 00:00: MOUTH [place] 00 DAILY WITH Medical BREAKFAST. Branch STOP GLIMEPIRID E. METFORMIN Yes [id number] TAKE 2 [facility] ER 500 mg 8-12 TABLETS [facility] of 24 hr 00:00: TWICE [place] tablet 00 DAILY WITH Medical MEALS Branch GLIPIZIDE 2022-0 Yes [id number] 10mg TAKE 1 [facility] XL 10 mg 24 8-12 TABLET BY [facility] of hr tablet 00:00: MOUTH [place] 00 DAILY WITH Medical BREAKFAST. Branch STOP GLIMEPIRID E. METFORMIN 2021-0 Yes [id number] TAKE 2 [facility] ER 500 mg 8-12 TABLETS [facility] of 24 hr 00:00: TWICE [place] tablet 00 DAILY WITH Medical MEALS [facility] GLIPIZIDE 2021-0 Yes [id number] 10mg TAKE 1 [facility] XL 10 mg 24 8-12 TABLET BY [facility] of hr tablet 00:00: MOUTH [place] 00 DAILY WITH Medical BREAKFAST. Branch STOP GLIMEPIRID E. GLIPIZIDE 2021-0 Yes [id number] 10mg TAKE 1 [facility] XL 10 mg 24 8-12 TABLET BY [facility] hr tablet 00:00: MOUTH [place] 00 DAILY WITH Medical BREAKFAST. Branch STOP GLIMEPIRID E. GLIPIZIDE 2021-0 3- No [id number] 10mg TAKE 1 [facility] XL 10 mg 24 8-12 02-06 TABLET BY it y of hr tablet 00:00: 00:00 MOUTH [place] 00 :00 DAILY WITH Medical BREAKFAST. Branch STOP GLIMEPIRID E. METFORMIN 2021-0 3- No [id number] TAKE 2 [facility] ER 500 mg 8-12 02-03 TABLETS ity of 24 hr 00:00: 00:00 TWICE [place] tablet 00 :00 DAILY WITH Medical MEALS [facility] NIFEdipine 2021-0 Yes [id number] 60mg Take 1 [facility] XL 60 mg 24 7-25 tablet by [facility] tablet 00:00: [place] 00 the Medical morning. [facility] NIFEdipine 2021-0 Yes [id number] 60mg Take 1 [facility] XL 60 mg 24 7-25 tablet by [facility] tablet 00:00: [place] 00 the Medical morning. [facility] NIFEdipine 2021-0 Yes [id number] 60mg Take 1 [facility] XL 60 mg 24 7-25 tablet by [facility] tablet 00:00: [place] 00 the Medical morning. [facility] NIFEdipine 2021-0 Yes [id number] 60mg Take 1 [facility] XL 60 mg 24 7-25 tablet by [facility] tablet 00:00: [place] 00 the Medical morning. [facility] NIFEdipine 2021-0 Yes [id number] 60mg Take 1 [facility] XL 60 mg 24 7-25 tablet by [facility] tablet 00:00: [place] 00 the Medical morning. [facility] NIFEdipine 2021-0 Yes [id number] 60mg Take 1 [facility] XL 60 mg 24 7-25 tablet by [facility] tablet 00:00: [place] 00 the Medical morning. [facility] NIFEdipine 2021-0 Yes [id number] 60mg Take 1 [facility] XL 60 mg 24 7-25 tablet by [facility] tablet 00:00: [place] 00 the Medical morning. [facility] NIFEdipine 2021-0 Yes [id number] 60mg Take 1 [facility] XL 60 mg 24 7-25 tablet by [facility] tablet 00:00: [place] 00 the Medical morning. [facility] NIFEdipine 2021-0 Yes [id number] 60mg Take 1 [facility] XL 60 mg 24 7-25 tablet by [facility] tablet 00:00: [place] 00 the Medical morning. [facility] NIFEdipine 2021-0 Yes [id number] 60mg Take 1 [facility] XL 60 mg 24 7-25 tablet by [facility] tablet 00:00: [place] 00 the Medical morning. [facility] NIFEdipine 2021-0 Yes [id number] 60mg Take 1 [facility] XL 60 mg 24 7-25 tablet by [facility] tablet 00:00: [place] 00 the Medical morning. [facility] NIFEdipine 2021-0 Yes [id number] 60mg Take 1 [facility] XL 60 mg 24 7-25 tablet by [facility] tablet 00:00: [place] 00 the Medical morning. [facility] NIFEdipine 2021-0 Yes [id number] 60mg Take 1 [facility] XL 60 mg 24 7-25 tablet by [facility] tablet 00:00: [place] 00 the Medical morning. [facility] NIFEdipine 2-0 Yes [id number] 60mg Take 1 [facility] XL 60 mg 24 7-25 tablet by [facility] tablet 00:00: [place] 00 the Medical morning. [facility] NIFEdipine 2-0 Yes [id number] 60mg Take 1 [facility] XL 60 mg 24 7-25 tablet by [facility] tablet 00:00: [place] 00 the Medical morning. [facility] NIFEdipine 2-0 Yes [id number] 60mg Take 1 [facility] XL 60 mg 24 7-25 tablet by [facility] tablet 00:00: [place] 00 the Medical morning. [facility] NIFEdipine 2021-0 Yes [id number] 60mg Take 1 [facility] XL 60 mg 24 7-25 tablet by [facility] tablet 00:00: [place] 00 the Medical morning. [facility] NIFEdipine 2-0 Yes [id number] 60mg Take 1 [facility] XL 60 mg 24 7-25 tablet by [facility] tablet 00:00: [place] 00 the Medical morning. [facility] NIFEdipine 2-0 Yes [id number] 60mg Take 1 [facility] XL 60 mg 24 7-25 tablet by [facility] tablet 00:00: [place] 00 the Medical morning. [facility] NIFEdipine 2021-0 Yes [id number] 60mg Take 1 [facility] XL 60 mg 24 7-25 tablet by [facility] tablet 00:00: [place] 00 the Medical morning. [facility] NIFEdipine 2021-0 Yes [id number] 60mg Take 1 [facility] XL 60 mg 24 7-25 tablet by [facility] tablet 00:00: [place] 00 the Medical morning. [facility] NIFEdipine 2021-0 Yes [id number] 60mg Take 1 [facility] XL 60 mg 24 7-25 tablet by [facility] tablet 00:00: [place] 00 the Medical morning. [facility] NIFEdipine 2021-0 Yes [id number] 60mg Take 1 [facility] XL 60 mg 24 7-25 tablet by [facility] tablet 00:00: [place] 00 the Medical morning. [facility] NIFEdipine 2-0 Yes [id number] 60mg Take 1 [facility] XL 60 mg 24 7-25 tablet by [facility] tablet 00:00: [place] 00 the Medical morning. [facility] NIFEdipine 2-0 Yes [id number] 60mg Take 1 [facility] XL 60 mg 24 7-25 tablet by [facility] tablet 00:00: [place] 00 the Medical morning. [facility] NIFEdipine 2022-0 Yes [id number] 60mg Take 1 [facility] XL 60 mg 24 7-25 tablet by [facility] tablet 00:00: [place] 00 the Medical morning. [facility] NIFEdipine 2-0 Yes [id number] 60mg Take 1 [facility] XL 60 mg 24 7-25 tablet by [facility] tablet 00:00: [place] 00 the Medical morning. [facility] NIFEdipine 2021-0 Yes [id number] 60mg Take 1 [facility] XL 60 mg 24 7-25 tablet by [facility] tablet 00:00: [place] 00 the Medical morning. [facility] NIFEdipine 2021-0 Yes [id number] 60mg Take 1 [facility] XL 60 mg 24 7-25 tablet by [facility] tablet 00:00: [place] 00 the Medical morning. [facility] NIFEdipine 2021-0 Yes [id number] 60mg Take 1 [facility] XL 60 mg 24 7-25 tablet by [facility] tablet 00:00: [place] 00 the Medical morning. [facility] NIFEdipine 2021-0 Yes [id number] 60mg Take 1 [facility] XL 60 mg 24 7-25 tablet by [facility] tablet 00:00: [place] 00 the Medical morning. [facility] NIFEdipine 2021-0 Yes [id number] 60mg Take 1 [facility] XL 60 mg 24 7-25 tablet by [facility] tablet 00:00: [place] 00 the Medical morning. [facility] NIFEdipine 2021-0 Yes [id number] 60mg Take 1 [facility] XL 60 mg 24 7-25 tablet by [facility] tablet 00:00: [place] 00 the Medical morning. [facility] NIFEdipine 2021-0 2021- No [id number] 60mg Take 1 [facility] 60 mg 24 7-25 12-09 tablet by [facility] y of hr tablet 00:00: 00:00 mouth in [place] 00 :00 the Medical morning. Branch metoprolol 2021-0 Yes [id number] TAKE 1 [facility] succinate 7-19 TABLET AT [facility] o f XL 50 mg 24 00:00: BEDTIME [place] [facility] tablet 00 (DOSE Medical INCREASE) Branch metoprolol 2021-0 Yes [id number] TAKE 1 [facility] succinate 7-19 TABLET AT [facility] o f XL 50 mg 24 00:00: BEDTIME [place] [facility] tablet 00 (DOSE Medical INCREASE) [facility] metoprolol 2021-0 Yes [id number] TAKE 1 [facility] succinate 7-19 TABLET AT [facility] o f XL 50 mg 24 00:00: BEDTIME [place] [facility] tablet 00 (DOSE Medical INCREASE) [facility] metoprolol 2021-0 Yes [id number] TAKE 1 [facility] succinate 7-19 TABLET AT [facility] o f XL 50 mg 24 00:00: BEDTIME [place] [facility] tablet 00 (DOSE Medical INCREASE) Branch metoprolol Yes [id number] TAKE 1 [facility] succinate 7-19 TABLET AT [facility] o f XL 50 mg 24 00:00: BEDTIME [place] [facility] tablet 00 (DOSE Medical INCREASE) Branch metoprolol Yes [id number] TAKE 1 [facility] succinate 7-19 TABLET AT [facility] o f XL 50 mg 24 00:00: BEDTIME [place] [facility] tablet 00 (DOSE Medical INCREASE) Branch metoprolol Yes [id number] TAKE 1 [facility] succinate 7-19 TABLET AT [facility] o f XL 50 mg 24 00:00: BEDTIME [place] [facility] tablet 00 (DOSE Medical INCREASE) Branch metoprolol Yes [id number] TAKE 1 [facility] succinate 7-19 TABLET AT ity o f XL 50 mg 24 00:00: BEDTIME Jefry as hr tablet 00 (DOSE Medical INCREASE) Branch metoprolol Yes [id number] TAKE 1 Un wendy succinate 7-19 TABLET AT ity o f XL 50 mg 24 00:00: BEDTIME Jefry as hr tablet 00 (DOSE Medical INCREASE) Branch metoprolol Yes [id number] TAKE 1 Un wendy succinate 7-19 TABLET AT ity o f XL 50 mg 24 00:00: BEDTIME Jefry as hr tablet 00 (DOSE Medical INCREASE) Branch metoprolol Yes [id number] TAKE 1 Un wendy succinate 7-19 TABLET AT ity o f XL 50 mg 24 00:00: BEDTIME [place] hr tablet 00 (DOSE Medical INCREASE) Branch metoprolol Yes [id number] TAKE 1 Un wendy succinate 7-19 TABLET AT ity o f XL 50 mg 24 00:00: BEDTIME [place] hr tablet 00 (DOSE Medical INCREASE) Branch metoprolol Yes [id number] TAKE 1 [facility] [place] succinate 7-19 TABLET AT ity o f XL 50 mg 24 00:00: BEDTIME [place] [facility] tablet 00 (DOSE Medical INCREASE) Branch metoprolol Yes [id number] TAKE 1 [facility] [place] succinate 7-19 TABLET AT ity o f XL 50 mg 24 00:00: BEDTIME [place] [facility] tablet 00 (DOSE Medical INCREASE) Branch metoprolol Yes [id number] TAKE 1 [facility] [place] succinate 7-19 TABLET AT ity o f XL 50 mg 24 00:00: BEDTIME [place] [facility] tablet 00 (DOSE Medical INCREASE) Branch metoprolol Yes [id number] TAKE 1 [facility] [place] succinate 7-19 TABLET AT ity o f XL 50 mg 24 00:00: BEDTIME [place] [facility] tablet 00 (DOSE Medical INCREASE) Branch metoprolol Yes [id number] TAKE 1 [facility] [place] succinate 7-19 TABLET AT ity o f XL 50 mg 24 00:00: BEDTIME [place] [facility] tablet 00 (DOSE Medical INCREASE) Branch metoprolol Yes [id number] TAKE 1 [facility] [place] succinate 7-19 TABLET AT ity o f XL 50 mg 24 00:00: BEDTIME [place] [facility] tablet 00 (DOSE Medical INCREASE) Branch metoprolol Yes [id number] TAKE 1 [facility] [place] succinate 7-19 TABLET AT ity o f XL 50 mg 24 00:00: BEDTIME [place] tablet 00 (DOSE Medical INCREASE) Branch metoprolol Yes [id number] TAKE 1 [facility] [place] succinate 7-19 TABLET AT ity o f XL 50 mg 24 00:00: BEDTIME [place] [facility] tablet 00 (DOSE Medical INCREASE) Branch metoprolol Yes [id number] TAKE 1 [facility] [place] succinate 7-19 TABLET AT ity o f XL 50 mg 24 00:00: BEDTIME [place] tablet 00 (DOSE Medical INCREASE) Branch metoprolol Yes [id number] TAKE 1 [facility] [place] succinate 7-19 TABLET AT ity o f XL 50 mg 24 00:00: BEDTIME [place] tablet 00 (DOSE Medical INCREASE) Branch metoprolol Yes [id number] TAKE 1 [facility] [place] succinate 7-19 TABLET AT ity o f XL 50 mg 24 00:00: BEDTIME [place] tablet 00 (DOSE Medical INCREASE) Branch metoprolol Yes [id number] TAKE 1 [facility] [place] succinate 7-19 TABLET AT ity o f XL 50 mg 24 00:00: BEDTIME [place] [facility] tablet 00 (DOSE Medical INCREASE) Branch metoprolol Yes [id number] TAKE 1 [facility] [place] succinate 7-19 TABLET AT ity o f XL 50 mg 24 00:00: BEDTIME [place] [facility] tablet 00 (DOSE Medical INCREASE) Branch metoprolol Yes [id number] TAKE 1 [facility] [place] succinate 7-19 TABLET AT ity o f XL 50 mg 24 00:00: BEDTIME [place] [facility] tablet 00 (DOSE Medical INCREASE) Branch metoprolol Yes [id number] TAKE 1 [facility] [place] succinate 7-19 TABLET AT ity o f XL 50 mg 24 00:00: BEDTIME [place] [facility] tablet 00 (DOSE Medical INCREASE) Branch metoprolol Yes [id number] TAKE 1 [facility] [place] succinate 7-19 TABLET AT ity o f XL 50 mg 24 00:00: BEDTIME [place] [facility] tablet 00 (DOSE Medical INCREASE) Branch metoprolol Yes [id number] TAKE 1 [facility] [place] succinate 7-19 TABLET AT ity o f XL 50 mg 24 00:00: BEDTIME [place] [facility] tablet 00 (DOSE Medical INCREASE) Branch metoprolol Yes [id number] TAKE 1 [facility] [place] succinate 7-19 TABLET AT ity o f XL 50 mg 24 00:00: BEDTIME [place] [facility] tablet 00 (DOSE Medical INCREASE) Branch metoprolol Yes [id number] TAKE 1 [facility] [place] succinate 7-19 TABLET AT ity o f XL 50 mg 24 00:00: BEDTIME [place] hr tablet 00 (DOSE Medical INCREASE) Branch metoprolol Yes [id number] TAKE 1 [facility] [place] succinate 7-19 TABLET AT ity o f XL 50 mg 24 00:00: BEDTIME [place] [facility] tablet 00 (DOSE Medical INCREASE) Branch metoprolol Yes [id number] TAKE 1 [facility] [place] succinate 7-19 TABLET AT ity o f XL 50 mg 24 00:00: BEDTIME [place] [facility] tablet 00 (DOSE Medical INCREASE) Branch metoprolol Yes [id number] TAKE 1 [facility] [place] succinate 7-19 TABLET AT ity o f XL 50 mg 24 00:00: BEDTIME [place] [facility] tablet 00 (DOSE Medical INCREASE) Branch metoprolol Yes [id number] TAKE 1 [facility] [place] succinate 7-19 TABLET AT ity o f XL 50 mg 24 00:00: BEDTIME [place] [facility] tablet 00 (DOSE Medical INCREASE) Branch metoprolol Yes [id number] TAKE 1 [facility] [place] succinate 7-19 TABLET AT ity o f XL 50 mg 24 00:00: BEDTIME [place] [facility] tablet 00 (DOSE Medical INCREASE) Branch metoprolol Yes [id number] TAKE 1 [facility] [place] succinate 7-19 TABLET AT ity o f XL 50 mg 24 00:00: BEDTIME [place] [facility] tablet 00 (DOSE Medical INCREASE) Branch metoprolol Yes [id number] TAKE 1 [facility] [place] succinate 7-19 TABLET AT ity o f XL 50 mg 24 00:00: BEDTIME [place] [facility] tablet 00 (DOSE Medical INCREASE) Branch metoprolol Yes [id number] TAKE 1 [facility] [place] succinate 7-19 TABLET AT ity o f XL 50 mg 24 00:00: BEDTIME [place] [facility] tablet 00 (DOSE Medical INCREASE) Branch metoprolol Yes [id number] TAKE 1 [facility] [place] succinate 7-19 TABLET AT ity o f XL 50 mg 24 00:00: BEDTIME [place] [facility] tablet 00 (DOSE Medical INCREASE) Branch metoprolol Yes [id number] TAKE 1 [facility] [place] succinate 7-19 TABLET AT ity o f XL 50 mg 24 00:00: BEDTIME [place] hr tablet 00 (DOSE Medical INCREASE) Branch metoprolol Yes [id number] TAKE 1 [facility] [place] succinate 7-19 TABLET AT ity o f XL 50 mg 24 00:00: BEDTIME [place] [facility] tablet 00 (DOSE Medical INCREASE) Branch metoprolol Yes [id number] TAKE 1 [facility] [place] succinate 7-19 TABLET AT ity o f XL 50 mg 24 00:00: BEDTIME [place] [facility] tablet 00 (DOSE Medical INCREASE) Branch metoprolol Yes [id number] TAKE 1 [facility] [place] succinate 7-19 TABLET AT ity o f XL 50 mg 24 00:00: BEDTIME [place] [facility] tablet 00 (DOSE Medical INCREASE) Branch metoprolol Yes [id number] TAKE 1 [facility] [place] succinate 7-19 TABLET AT ity o f XL 50 mg 24 00:00: BEDTIME [place] [facility] tablet 00 (DOSE Medical INCREASE) Branch metoprolol Yes [id number] TAKE 1 [facility] [place] succinate 7-19 TABLET AT ity o f XL 50 mg 24 00:00: BEDTIME [place] [facility] tablet 00 (DOSE Medical INCREASE) Branch metoprolol Yes [id number] TAKE 1 [facility] [place] succinate 7-19 TABLET AT ity o f XL 50 mg 24 00:00: BEDTIME [place] [facility] tablet 00 (DOSE Medical INCREASE) Branch metoprolol Yes [id number] TAKE 1 [facility] [place] succinate 7-19 TABLET AT ity o f XL 50 mg 24 00:00: BEDTIME [place] [facility] tablet 00 (DOSE Medical INCREASE) Branch metoprolol Yes [id number] TAKE 1 [facility] [place] succinate 7-19 TABLET AT ity o f XL 50 mg 24 00:00: BEDTIME [place] [facility] tablet 00 (DOSE Medical INCREASE) Branch metoprolol Yes [id number] TAKE 1 [facility] [place] succinate 7-19 TABLET AT ity o f XL 50 mg 24 00:00: BEDTIME [place] [facility] tablet 00 (DOSE Medical INCREASE) Branch metoprolol Yes [id number] TAKE 1 [facility] [place] succinate 7-19 TABLET AT ity o f XL 50 mg 24 00:00: BEDTIME [place] hr tablet 00 (DOSE Medical INCREASE) Branch metoprolol Yes [id number] TAKE 1 [facility] [place] succinate 7-19 TABLET AT ity o f XL 50 mg 24 00:00: BEDTIME [place] hr tablet 00 (DOSE Medical INCREASE) Branch metoprolol Yes [id number] TAKE 1 [facility] [place] succinate 7-19 TABLET AT ity o f XL 50 mg 24 00:00: BEDTIME [place] hr tablet 00 (DOSE Medical INCREASE) Branch metoprolol Yes [id number] TAKE 1 [facility] [place] succinate 7-19 TABLET AT ity o f XL 50 mg 24 00:00: BEDTIME [place] [facility] hr tablet 00 (DOSE Medical INCREASE) Branch metoprolol Yes [id number] TAKE 1 [facility] [place] succinate 7-19 TABLET AT ity o f XL 50 mg 24 00:00: BEDTIME [place] [facility] hr tablet 00 (DOSE Medical INCREASE) Branch metoprolol Yes [id number] TAKE 1 [facility] [place] succinate 7-19 TABLET AT ity o f XL 50 mg 24 00:00: BEDTIME [place] [facility] hr tablet 00 (DOSE Medical INCREASE) Branch metoprolol Yes [id number] TAKE 1 [facility] [place] succinate 7-19 TABLET AT ity o f XL 50 mg 24 00:00: BEDTIME [place] [facility] hr tablet 00 (DOSE Medical INCREASE) Branch metoprolol Yes [id number] TAKE 1 [facility] [place] succinate 7-19 TABLET AT ity o f XL 50 mg 24 00:00: BEDTIME [place] [facility] tablet 00 (DOSE Medical INCREASE) Branch metoprolol Yes [id number] TAKE 1 [facility] [place] succinate 7-19 TABLET AT ity o f XL 50 mg 24 00:00: BEDTIME [place] [facility] hr tablet 00 (DOSE Medical INCREASE) Branch metoprolol Yes [id number] TAKE 1 Un [facility] succinate 7-19 TABLET AT ity o f XL 50 mg 24 00:00: BEDTIME [place] [facility] hr tablet 00 (DOSE Medical INCREASE) Branch metoprolol Yes [id number] TAKE 1 Un [facility] succinate 7-19 TABLET AT ity o f XL 50 mg 24 00:00: BEDTIME [place] [facility] hr tablet 00 (DOSE Medical INCREASE) Branch metoprolol 2022- No [id number] TAKE 1 U nivers succinate 7-19 02-28 TABLET AT ity of XL 50 mg 24 00:00: 00:00 BEDTIME [place] hr tablet 00 :00 (DOSE Medical INCREASE) Branch atropine 1 Yes atropine 1 U nivers % 7-16 % eye ity of ophthalmic 16:13: drops [place] drops 29 Medical Branch bismuth-met Yes Pylera 140 Univers ronidazole- 7-16 mg-125 ity of tetracyclin 16:13: mg-125 mg [place] (PYLERA) 29 capsule Medica l 140-125-125 Branch mg per capsule doxycycline Yes doxycyclin [facility] hyclate 100 7-16 e hyclate ity of mg capsule 16:13: 100 mg [place] 29 capsule Medical Branch atropine 1 Yes atropine 1 U nivers % 7-16 % eye ity of ophthalmic 16:13: drops [place] drops 29 Medical Branch bismuth-met Yes Pylera 140 Univers ronidazole- 7-16 mg-125 ity of tetracyclin 16:13: mg-125 mg [place] (PYLERA) 29 capsule Medica l 140-125-125 Branch mg per capsule doxycycline Yes doxycyclin [facility] hyclate 100 7-16 e hyclate ity of mg capsule 16:13: 100 mg [place] [address] capsule Medical Branch atropine 1 Yes atropine 1 U nivers % 7-16 % eye ity of ophthalmic 16:13: drops [place] drops [address] [place] [address] Yes Pylera 140 Univers ronidazole- 7-16 mg-125 ity of tetracyclin 16:13: mg-125 mg [place] (PYLERA) 29 capsule Medica l 140-125-125 Branch mg per capsule doxycycline Yes doxycyclin [facility] hyclate 100 7-16 e hyclate ity of mg capsule 16:13: 100 mg [place] [address] capsule Medical Branch atropine 1 Yes atropine 1 U nivers % 7-16 % eye ity of ophthalmic 16:13: drops [place] drops Medical [facility] Yes Pylera 140 Univers ronidazole- 7-16 mg-125 ity of tetracyclin 16:13: mg-125 mg [place] (PYLERA) 29 capsule Medica l 140-125-125 Branch mg per capsule doxycycline Yes doxycyclin Univers hyclate 100 7-16 e hyclate ity of mg capsule 16:13: 100 mg [place] [address] capsule Medical Branch atropine 1 Yes atropine 1 U nivers % 7-16 % eye ity of ophthalmic 16:13: drops [place] drops Medical [facility] Yes Pylera 140 Univers ronidazole- 7-16 mg-125 ity of tetracyclin 16:13: mg-125 mg [place] (PYLERA) 29 capsule Medica l 140-125-125 Branch mg per capsule doxycycline 0 Yes doxycyclin Univers hyclate 100 7-16 e hyclate ity of mg capsule 16:13: 100 mg [place] [address] capsule Medical Branch atropine 1 Yes atropine 1 U nivers % 7-16 % eye ity of ophthalmic 16:13: drops [place] drops Medical Branch [facility] Yes Pylera 140 Univers ronidazole- 7-16 mg-125 ity of tetracyclin 16:13: mg-125 mg [place] (PYLERA) 29 capsule Medica l 140-125-125 Branch mg per capsule doxycycline 2022-0 Yes doxycyclin Univers hyclate 100 7-16 e hyclate ity of mg capsule 16:13: 100 mg [place] 29 capsule Medical Branch ERGOCALCIFE 2021-0 Yes [id number] TAKE 1 Univers ROL, 7-14 CAPSULE BY ity of VITAMIN D2, 00:00: MOUTH [place] 1,250 mcg 00 EVERY TWO Medic al (50,000 WEEKS WITH Branch unit) FOOD capsule ERGOCALCIFE 2022-0 Yes [id number] TAKE 1 Univers ROL, 7-14 CAPSULE BY ity of VITAMIN D2, 00:00: MOUTH [place] 1,250 mcg 00 EVERY TWO Medic al (50,000 WEEKS WITH Branch unit) FOOD capsule ERGOCALCIFE 2022-0 Yes [id number] TAKE 1 Univers ROL, 7-14 CAPSULE BY ity of VITAMIN D2, 00:00: MOUTH [place] 1,250 mcg 00 EVERY TWO Medic al (50,000 WEEKS WITH Branch unit) FOOD capsule ERGOCALCIFE 2-0 Yes [id number] TAKE 1 [facility] ROL, 7-14 CAPSULE BY ity of VITAMIN D2, 00:00: MOUTH [place] 1,250 mcg 00 EVERY TWO Medic al (50,000 WEEKS WITH Branch unit) FOOD capsule ERGOCALCIFE 2-0 Yes [id number] TAKE 1 Univers ROL, 7-14 CAPSULE BY ity of VITAMIN D2, 00:00: MOUTH [place] 1,250 mcg 00 EVERY TWO Medic al (50,000 WEEKS WITH Branch unit) FOOD capsule ERGOCALCIFE 2-0 Yes [id number] TAKE 1 Univers ROL, 7-14 CAPSULE BY ity of VITAMIN D2, 00:00: MOUTH [place] 1,250 mcg 00 EVERY TWO Medic al (50,000 WEEKS WITH Branch unit) FOOD capsule ERGOCALCIFE 2022-0 Yes [id number] TAKE 1 Univers ROL, 7-14 CAPSULE BY ity of VITAMIN D2, 00:00: MOUTH [place] 1,250 mcg 00 EVERY TWO Medic al (50,000 WEEKS WITH Branch unit) FOOD capsule ERGOCALCIFE 2022-0 Yes [id number] TAKE 1 Univers ROL, 7-14 CAPSULE BY ity of VITAMIN D2, 00:00: MOUTH [place] 1,250 mcg 00 EVERY TWO Medic al (50,000 WEEKS WITH Branch unit) FOOD capsule ERGOCALCIFE 2022-0 Yes [id number] TAKE 1 Univers ROL, 7-14 CAPSULE BY ity of VITAMIN D2, 00:00: MOUTH [place] 1,250 mcg 00 EVERY TWO Medic al (50,000 WEEKS WITH Branch unit) FOOD capsule ERGOCALCIFE 2022-0 Yes [id number] TAKE 1 Univers ROL, 7-14 CAPSULE BY ity of VITAMIN D2, 00:00: MOUTH [place] 1,250 mcg 00 EVERY TWO Medic al (50,000 WEEKS WITH Branch unit) FOOD capsule ERGOCALCIFE 2022-0 Yes [id number] TAKE 1 Univers ROL, 7-14 CAPSULE BY ity of VITAMIN D2, 00:00: MOUTH [place] 1,250 mcg 00 EVERY TWO Medic al (50,000 WEEKS WITH Branch unit) FOOD capsule ERGOCALCIFE 2022-0 Yes [id number] TAKE 1 Univers ROL, 7-14 CAPSULE BY ity of VITAMIN D2, 00:00: MOUTH [place] 1,250 mcg 00 EVERY TWO Medic al (50,000 WEEKS WITH Branch unit) FOOD capsule ERGOCALCIFE 2022-0 Yes [id number] TAKE 1 Univers ROL, 7-14 CAPSULE BY ity of VITAMIN D2, 00:00: MOUTH [place] 1,250 mcg 00 EVERY TWO Medic al (50,000 WEEKS WITH Branch unit) FOOD capsule ERGOCALCIFE 2022-0 Yes [id number] TAKE 1 Univers ROL, 7-14 CAPSULE BY ity of VITAMIN D2, 00:00: MOUTH [place] 1,250 mcg 00 EVERY TWO Medic al (50,000 WEEKS WITH Branch unit) FOOD capsule ERGOCALCIFE 2022-0 Yes [id number] TAKE 1 Univers ROL, 7-14 CAPSULE BY ity of VITAMIN D2, 00:00: MOUTH [place] 1,250 mcg 00 EVERY TWO Medic al (50,000 WEEKS WITH Branch unit) FOOD capsule ERGOCALCIFE 2022-0 Yes [id number] TAKE 1 Univers ROL, 7-14 CAPSULE BY ity of VITAMIN D2, 00:00: MOUTH [place] 1,250 mcg 00 EVERY TWO Medic al (50,000 WEEKS WITH Branch unit) FOOD capsule ERGOCALCIFE 2022-0 Yes [id number] TAKE 1 Univers ROL, 7-14 CAPSULE BY ity of VITAMIN D2, 00:00: MOUTH [place] 1,250 mcg 00 EVERY TWO Medic al (50,000 WEEKS WITH Branch unit) FOOD capsule ERGOCALCIFE 2022-0 Yes [id number] TAKE 1 Univers ROL, 7-14 CAPSULE BY ity of VITAMIN D2, 00:00: MOUTH [place] 1,250 mcg 00 EVERY TWO Medic al (50,000 WEEKS WITH Branch unit) FOOD capsule ERGOCALCIFE 2022-0 Yes [id number] TAKE 1 Univers ROL, 7-14 CAPSULE BY ity of VITAMIN D2, 00:00: MOUTH [place] 1,250 mcg 00 EVERY TWO Medic al (50,000 WEEKS WITH Branch unit) FOOD capsule ERGOCALCIFE 2022-0 Yes [id number] TAKE 1 Univers ROL, 7-14 CAPSULE BY ity of VITAMIN D2, 00:00: MOUTH [place] 1,250 mcg 00 EVERY TWO Medic al (50,000 WEEKS WITH Branch unit) FOOD capsule ERGOCALCIFE 2022-0 Yes [id number] TAKE 1 Univers ROL, 7-14 CAPSULE BY ity of VITAMIN D2, 00:00: MOUTH [place] 1,250 mcg 00 EVERY TWO Medic al (50,000 WEEKS WITH Branch unit) FOOD capsule ERGOCALCIFE 2022-0 Yes [id number] TAKE 1 Univers ROL, 7-14 CAPSULE BY ity of VITAMIN D2, 00:00: MOUTH [place] 1,250 mcg 00 EVERY TWO Medic al (50,000 WEEKS WITH Branch unit) FOOD capsule ERGOCALCIFE 2022-0 Yes [id number] TAKE 1 Univers ROL, 7-14 CAPSULE BY ity of VITAMIN D2, 00:00: MOUTH [place] 1,250 mcg 00 EVERY TWO Medic al (50,000 WEEKS WITH Branch unit) FOOD capsule ERGOCALCIFE 2022-0 Yes [id number] TAKE 1 Univers ROL, 7-14 CAPSULE BY ity of VITAMIN D2, 00:00: MOUTH [place] 1,250 mcg 00 EVERY TWO Medic al (50,000 WEEKS WITH Branch unit) FOOD capsule ERGOCALCIFE 2022-0 Yes [id number] TAKE 1 Univers ROL, 7-14 CAPSULE BY ity of VITAMIN D2, 00:00: MOUTH [place] 1,250 mcg 00 EVERY TWO Medic al (50,000 WEEKS WITH Branch unit) FOOD capsule ERGOCALCIFE 2022-0 Yes [id number] TAKE 1 Univers ROL, 7-14 CAPSULE BY ity of VITAMIN D2, 00:00: MOUTH [place] 1,250 mcg 00 EVERY TWO Medic al (50,000 WEEKS WITH Branch unit) FOOD capsule ERGOCALCIFE 2022-0 Yes [id number] TAKE 1 Univers ROL, 7-14 CAPSULE BY ity of VITAMIN D2, 00:00: MOUTH [place] 1,250 mcg 00 EVERY TWO Medic al (50,000 WEEKS WITH Branch unit) FOOD capsule ERGOCALCIFE 2022-0 Yes [id number] TAKE 1 Univers ROL, 7-14 CAPSULE BY ity of VITAMIN D2, 00:00: MOUTH [place] 1,250 mcg 00 EVERY TWO Medic al (50,000 WEEKS WITH Branch unit) FOOD capsule ERGOCALCIFE 2022-0 Yes [id number] TAKE 1 Univers ROL, 7-14 CAPSULE BY ity of VITAMIN D2, 00:00: MOUTH [place] 1,250 mcg 00 EVERY TWO Medic al (50,000 WEEKS WITH Branch unit) FOOD capsule ERGOCALCIFE 2022-0 Yes [id number] TAKE 1 Univers ROL, 7-14 CAPSULE BY ity of VITAMIN D2, 00:00: MOUTH [place] 1,250 mcg 00 EVERY TWO Medic al (50,000 WEEKS WITH Branch unit) FOOD capsule ERGOCALCIFE 2022-0 Yes [id number] TAKE 1 Univers ROL, 7-14 CAPSULE BY ity of VITAMIN D2, 00:00: MOUTH [place] 1,250 mcg 00 EVERY TWO Medic al (50,000 WEEKS WITH Branch unit) FOOD capsule ERGOCALCIFE 2-0 Yes [id number] TAKE 1 Univers ROL, 7-14 CAPSULE BY ity of VITAMIN D2, 00:00: MOUTH [place] 1,250 mcg 00 EVERY TWO Medic al (50,000 WEEKS WITH Branch unit) FOOD capsule ERGOCALCIFE 2-0 Yes [id number] TAKE 1 Univers ROL, 7-14 CAPSULE BY ity of VITAMIN D2, 00:00: MOUTH [place] 1,250 mcg 00 EVERY TWO Medic al (50,000 WEEKS WITH Branch unit) FOOD capsule ERGOCALCIFE 2-0 2022- No [id number] TAKE 1 [facility] ROL, 7-14 12-09 CAPSULE BY ity of VITAMIN D2, 00:00: 00:00 M[place]TH [place] 1,250 mcg 00 :00 EVERY TWO Medic al (50,000 WEEKS WITH Branch unit) FOOD capsule dapaglifloz 0 Yes 5mg QD Take 5 mg M [facility] in 10-[address] (FARXIGA) 5 12:45: daily. [facility] mg tablet 04 l doxycycline Yes doxycyclin [facility] (VIBRAMYCIN 10-[address] ) 100 MG 12:45: 100 mg [facility]osp[facility] capsule 04 capsule l metoprolol Yes 100mg QD Take 100 [facility] succinate 7-[address] XL 12:45: mouth [facility]osp[facility] (TOPROL-XL) 26 daily. l 100 mg 24 hr tablet pantoprazol Yes Take by [facility] e sodium [address] (PANTOPRAZO 12:45: Hospit a LE ORAL) 26 l levoFLOXaci Yes [facility] n [facility] (LEVAQUIN) 00:00: Hospita 250 MG 00 l tablet nitazoxanid Yes [facility] (ALINIA) [facility]-18 [facility] 500 MG 00:00: Hospita tablet 00 l doxycycline Yes 100mg Q.5D Take 100 M [facility]i (MONODOX) 5-[address] 100 MG 00:00: mouth 2 Hospita capsule 00 (two) l times a day. fluticasone Yes [id number] 1{spray Use 1 Univers propionate 5-12 } [place] in ity o f 50 00:00: each [place] mcg/actuati 00 nostril Medic al on nasal daily. Use Branc h spray 2 spray(s) in each nostril once daily famotidine Yes TAKE 1 Unive rs 40 mg 5-12 TABLET BY ity of tablet 00:00: MOUTH ONCE [place] 00 DAILY Medical NEEDED Branch famotidine Yes TAKE 1 Unive rs 40 mg 5-12 TABLET BY ity of tablet 00:00: MOUTH ONCE [place] 00 DAILY Medical NEEDED Branch famotidine 0 Yes TAKE 1 Unive rs 40 mg 5-12 TABLET BY ity of tablet 00:00: MOUTH ONCE [place] 00 DAILY Medical NEEDED Branch famotidine 0 Yes TAKE 1 Unive rs 40 mg 5-12 TABLET BY ity of tablet 00:00: MOUTH ONCE [place] 00 DAILY Medical NEEDED Branch famotidine 0 Yes TAKE 1 Unive rs 40 mg 5-12 TABLET BY ity of tablet 00:00: MOUTH ONCE [place] 00 DAILY Medical NEEDED Branch famotidine 0 Yes TAKE 1 Unive rs 40 mg 5-12 TABLET BY ity of tablet 00:00: MOUTH ONCE [place] 00 DAILY Medical NEEDED Branch famotidine 0 Yes TAKE 1 Unive rs 40 mg 5-12 TABLET BY ity of tablet 00:00: MOUTH ONCE [place] 00 DAILY Medical NEEDED Branch famotidine 0 Yes TAKE 1 Unive rs 40 mg 5-12 TABLET BY ity of tablet 00:00: MOUTH ONCE [place] 00 DAILY Medical NEEDED Branch famotidine 2022-0 Yes TAKE 1 Unive rs 40 mg 5-12 TABLET BY ity of tablet 00:00: MOUTH ONCE [place] 00 DAILY Medical NEEDED Branch famotidine 2022-0 Yes TAKE 1 Unive rs 40 mg 5-12 TABLET BY ity of tablet 00:00: MOUTH ONCE [place] 00 DAILY Medical NEEDED Branch famotidine 2-0 Yes TAKE 1 Unive rs 40 mg 5-12 TABLET BY ity of tablet 00:00: MOUTH ONCE [place] 00 DAILY Medical NEEDED Branch famotidine 2-0 Yes TAKE 1 Unive rs 40 mg 5-12 TABLET BY ity of tablet 00:00: MOUTH ONCE [place] 00 DAILY Medical NEEDED Branch famotidine 2-0 Yes TAKE 1 Unive rs 40 mg 5-12 TABLET BY ity of tablet 00:00: MOUTH ONCE [place] 00 DAILY Medical NEEDED Branch famotidine 2-0 Yes TAKE 1 Unive rs 40 mg 5-12 TABLET BY ity of tablet 00:00: MOUTH ONCE 00 DAILY Medical NEEDED Branch famotidine 2-0 Yes TAKE 1 Unive rs 40 mg 5-12 TABLET BY ity of tablet 00:00: MOUTH ONCE 00 DAILY Medical NEEDED Branch famotidine 2-0 Yes TAKE 1 Unive rs 40 mg 5-12 TABLET BY ity of tablet 00:00: MOUTH ONCE [place] 00 DAILY Medical NEEDED Branch famotidine 2-0 Yes TAKE 1 Unive rs 40 mg 5-12 TABLET BY ity of tablet 00:00: MOUTH ONCE 00 DAILY Medical NEEDED Branch famotidine 2022-0 Yes TAKE 1 Unive rs 40 mg 5-12 TABLET BY ity of tablet 00:00: MOUTH ONCE [place] 00 DAILY Medical NEEDED Branch famotidine 2022-0 Yes TAKE 1 Unive rs 40 mg 5-12 TABLET BY ity of tablet 00:00: MOUTH ONCE [place] 00 DAILY Medical NEEDED Branch famotidine 2022-0 Yes TAKE 1 Unive rs 40 mg 5-12 TABLET BY ity of tablet 00:00: MOUTH ONCE [place] 00 DAILY Medical NEEDED Branch famotidine 2022-0 Yes TAKE 1 Unive rs 40 mg 5-12 TABLET BY ity of tablet 00:00: MOUTH ONCE [place] 00 DAILY Medical NEEDED Branch famotidine 2022-0 Yes TAKE 1 Unive rs 40 mg 5-12 TABLET BY ity of tablet 00:00: MOUTH ONCE [place] 00 DAILY Medical NEEDED Branch famotidine 2022-0 Yes TAKE 1 Unive rs 40 mg 5-12 TABLET BY ity of tablet 00:00: MOUTH ONCE [place] 00 DAILY Medical NEEDED Branch famotidine 2-0 Yes TAKE 1 Unive rs 40 mg 5-12 TABLET BY ity of tablet 00:00: MOUTH ONCE [place] 00 DAILY Medical NEEDED Branch famotidine 2-0 Yes TAKE 1 Unive rs 40 mg 5-12 TABLET BY ity of tablet 00:00: MOUTH ONCE [place] 00 DAILY Medical NEEDED Branch famotidine 2021-0 Yes TAKE 1 Unive rs 40 mg 5-12 TABLET BY ity of tablet 00:00: MOUTH ONCE [place] 00 DAILY Medical NEEDED Branch famotidine 2021-0 Yes TAKE 1 Unive rs 40 mg 5-12 TABLET BY ity of tablet 00:00: MOUTH ONCE 00 DAILY Medical NEEDED Branch famotidine 2021-0 Yes TAKE 1 [facility] rs 40 mg 5-12 TABLET BY ity of tablet 00:00: MOUTH ONCE 00 DAILY Medical NEEDED Branch famotidine 2-0 Yes TAKE 1 [facility] rs 40 mg 5-12 TABLET BY ity of tablet 00:00: MOUTH ONCE 00 DAILY Medical NEEDED Branch famotidine 2-0 Yes TAKE 1 [facility] rs 40 mg 5-12 TABLET BY ity of tablet 00:00: MOUTH ONCE 00 DAILY Medical NEEDED Branch famotidine 2-0 Yes TAKE 1 [facility] rs 40 mg 5-12 TABLET BY ity of tablet 00:00: MOUTH ONCE 00 DAILY Medical NEEDED Branch famotidine 2022-0 Yes TAKE 1 [facility] rs 40 mg 5-12 TABLET BY ity of tablet 00:00: MOUTH ONCE 00 DAILY Medical NEEDED Branch famotidine 2-0 Yes TAKE 1 Unive rs 40 mg 5-12 TABLET BY ity of tablet 00:00: MOUTH ONCE [place] 00 DAILY Medical NEEDED Branch famotidine 2022-0 Yes TAKE 1 Unive rs 40 mg 5-12 TABLET BY ity of tablet 00:00: MOUTH ONCE [place] 00 DAILY Medical NEEDED Branch famotidine 2022-0 Yes TAKE 1 Unive rs 40 mg 5-12 TABLET BY ity of tablet 00:00: MOUTH ONCE [place] 00 DAILY Medical NEEDED Branch famotidine 2022-0 Yes TAKE 1 Unive rs 40 mg 5-12 TABLET BY ity of tablet 00:00: MOUTH ONCE [place] 00 DAILY Medical NEEDED Branch famotidine 2022-0 Yes TAKE 1 Unive rs 40 mg 5-12 TABLET BY ity of tablet 00:00: MOUTH ONCE [place] 00 DAILY Medical NEEDED Branch famotidine 2022-0 Yes TAKE 1 Unive rs 40 mg 5-12 TABLET BY ity of tablet 00:00: MOUTH ONCE [place] 00 DAILY Medical NEEDED Branch famotidine 2022-0 Yes TAKE 1 Unive rs 40 mg 5-12 TABLET BY ity of tablet 00:00: MOUTH ONCE [place] 00 DAILY Medical NEEDED Branch famotidine 2022-0 Yes TAKE 1 Unive rs 40 mg 5-12 TABLET BY ity of tablet 00:00: MOUTH ONCE 00 DAILY Medical NEEDED Branch famotidine 2022-0 Yes TAKE 1 [facility] 40 mg 5-12 TABLET BY ity of tablet 00:00: MOUTH ONCE 00 DAILY Medical NEEDED Branch famotidine 2022-0 Yes TAKE 1 [facility] 40 mg 5-12 TABLET BY [facility] tablet 00:00: MOUTH ONCE 00 DAILY [facility] NEED[facility] famotidine 2022-0 Yes TAKE 1 [facility] rs 40 mg 5-12 TABLET BY [facility] tablet 00:00: MOUTH ONCE 00 DAILY [facility] NEED[facility] famotidine 2022-0 Yes TAKE 1 [facility] rs 40 mg 5-12 TABLET BY [facility] tablet 00:00: MOUTH ONCE 00 DAILY [facility] NEEDED [facility] famotidine 2022-0 Yes TAKE 1 [facility] rs 40 mg 5-12 TABLET BY [facility] tablet 00:00: MOUTH ONCE 00 DAILY [facility] NEED[facility] famotidine 2022-0 Yes TAKE 1 [facility] rs 40 mg 5-12 TABLET BY [facility] tablet 00:00: MOUTH ONCE [place] 00 DAILY [facility] NEEDED [facility] famotidine 2022-0 Yes TAKE 1 [facility] rs 40 mg 5-12 TABLET BY [facility] tablet 00:00: MOUTH ONCE [place] 00 DAILY [facility] NEEDED [facility] famotidine 2022-0 Yes TAKE 1 [facility] rs 40 mg 5-12 TABLET BY [facility] tablet 00:00: MOUTH ONCE [place] 00 DAILY [facility] NEEDED [facility] famotidine 2022-0 Yes TAKE 1 [facility] rs 40 mg 5-12 TABLET BY [facility] tablet 00:00: MOUTH ONCE [place] 00 DAILY [facility] NEEDED [facility] famotidine 2-0 Yes TAKE 1 [facility] rs 40 mg 5-12 TABLET BY [facility] tablet 00:00: MOUTH ONCE [place] 00 DAILY [facility] NEEDED [facility] famotidine 2-0 Yes TAKE 1 [facility] rs 40 mg 5-12 TABLET BY [facility] tablet 00:00: MOUTH ONCE [place] 00 DAILY [facility] NEEDED [facility] famotidine 2021-0 Yes TAKE 1 [facility] rs 40 mg 5-12 TABLET BY [facility] tablet 00:00: MOUTH ONCE [place] 00 DAILY Medical NEEDED Branch famotidine 2021-0 Yes TAKE 1 [facility] 40 mg 5-12 TABLET BY [facility] tablet 00:00: MOUTH ONCE [place] 00 DAILY Medical NEEDED Branch famotidine 2021-0 Yes TAKE 1 [facility] 40 mg 5-12 TABLET BY [facility] tablet 00:00: MOUTH ONCE 00 DAILY Medical NEEDED Branch famotidine 2021-0 Yes TAKE 1 [facility] 40 mg 5-12 TABLET BY [facility] tablet 00:00: MOUTH ONCE [place] 00 DAILY Medical NEEDED Branch famotidine 2021-0 Yes TAKE 1 [facility] 40 mg 5-12 TABLET BY [facility] tablet 00:00: MOUTH ONCE 00 DAILY Medical NEEDED Branch famotidine 2021-0 Yes TAKE 1 [facility] 40 mg 5-12 TABLET BY [facility] tablet 00:00: MOUTH ONCE [place] 00 DAILY Medical NEEDED Branch famotidine 2-0 Yes TAKE 1 [facility] 40 mg 5-12 TABLET BY [facility] tablet 00:00: MOUTH ONCE [place] 00 DAILY Medical NEEDED Branch famotidine 2-0 Yes TAKE 1 [facility] 40 mg 5-12 TABLET BY [facility] tablet 00:00: MOUTH ONCE [place] 00 DAILY Medical NEEDED Branch famotidine 2-0 Yes TAKE 1 [facility] 40 mg 5-12 TABLET BY [facility] tablet 00:00: MOUTH ONCE [place] 00 DAILY Medical NEEDED Branch famotidine 2-0 Yes TAKE 1 [facility] 40 mg 5-12 TABLET BY [facility] tablet 00:00: MOUTH ONCE [place] 00 DAILY Medical NEEDED Branch famotidine 2-0 Yes TAKE 1 [facility] 40 mg 5-12 TABLET BY [facility] tablet 00:00: MOUTH ONCE [place] 00 DAILY Medical NEEDED Branch famotidine 2022-0 Yes TAKE 1 [facility] 40 mg 5-12 TABLET BY [facility] tablet 00:00: MOUTH ONCE [place] 00 DAILY Medical NEEDED Branch famotidine 2022-0 Yes TAKE 1 [facility] 40 mg 5-12 TABLET BY [facility] tablet 00:00: MOUTH ONCE [place] 00 DAILY Medical NEEDED Branch famotidine 2022-0 Yes TAKE 1 [facility] 40 mg 5-12 TABLET BY [facility] tablet 00:00: MOUTH ONCE [place] 00 DAILY Medical NEEDED Branch famotidine 2022-0 Yes TAKE 1 [facility] 40 mg 5-12 TABLET BY [facility] tablet 00:00: MOUTH ONCE [place] 00 DAILY Medical NEEDED Branch famotidine 2-0 Yes TAKE 1 [facility] 40 mg 5-12 TABLET BY [facility] tablet 00:00: MOUTH ONCE [place] 00 DAILY Medical NEEDED Branch famotidine 2-0 Yes TAKE 1 [facility] 40 mg 5-12 TABLET BY [facility] tablet 00:00: MOUTH ONCE 00 DAILY Medical NEEDED Branch famotidine 2022-0 Yes TAKE 1 [facility] 40 mg 5-12 TABLET BY [facility] tablet 00:00: MOUTH ONCE 00 DAILY Medical NEEDED Branch famotidine 2-0 Yes TAKE 1 [facility] 40 mg 5-12 TABLET BY [facility] tablet 00:00: MOUTH ONCE [place] 00 DAILY Medical NEEDED Branch famotidine 2022-0 Yes TAKE 1 [facility] 40 mg 5-12 TABLET BY [facility] tablet 00:00: MOUTH ONCE 00 DAILY Medical NEEDED Branch famotidine 2022-0 Yes TAKE 1 [facility] 40 mg 5-12 TABLET BY [facility] tablet 00:00: MOUTH ONCE [place] 00 DAILY Medical NEEDED Branch famotidine 2022-0 Yes TAKE 1 [facility] 40 mg 5-12 TABLET BY [facility] tablet 00:00: MOUTH ONCE [place] 00 DAILY Medical NEEDED Branch famotidine 2022-0 Yes TAKE 1 [facility] 40 mg 5-12 TABLET BY [facility] tablet 00:00: MOUTH ONCE [place] 00 DAILY Medical NEEDED Branch famotidine 2022-0 Yes TAKE 1 [facility] 40 mg 5-12 TABLET BY [facility] tablet 00:00: MOUTH ONCE [place] 00 DAILY Medical NEEDED Branch famotidine 2022-0 Yes TAKE 1 [facility] 40 mg 5-12 TABLET BY [facility] tablet 00:00: MOUTH ONCE [place] 00 DAILY Medical NEEDED Branch famotidine 2021-0 Yes TAKE 1 [facility] 40 mg 5-12 TABLET BY [facility] tablet 00:00: MOUTH ONCE [place] 00 DAILY Medical NEEDED Branch famotidine 2021-0 Yes TAKE 1 [facility] 40 mg 5-12 TABLET BY [facility] tablet 00:00: MOUTH ONCE [place] 00 DAILY Medical NEEDED Branch famotidine 2021-0 Yes TAKE 1 [facility] 40 mg 5-12 TABLET BY [facility] tablet 00:00: MOUTH ONCE [place] 00 DAILY Medical NEEDED Branch famotidine 2021-0 Yes TAKE 1 [facility] 40 mg 5-12 TABLET BY [facility] tablet 00:00: MOUTH ONCE [place] 00 DAILY Medical NEEDED Branch famotidine 2021-0 Yes TAKE 1 [facility] 40 mg 5-12 TABLET BY [facility] tablet 00:00: MOUTH ONCE 00 DAILY Medical NEEDED Branch famotidine 2021-0 Yes TAKE 1 [facility] 40 mg 5-12 TABLET BY [facility] tablet 00:00: MOUTH ONCE [place] 00 DAILY Medical NEEDED Branch famotidine 2021-0 Yes TAKE 1 [facility] 40 mg 5-12 TABLET BY [facility] tablet 00:00: MOUTH ONCE [place] 00 DAILY Medical NEEDED Branch famotidine 2021-0 Yes TAKE 1 [facility] 40 mg 5-12 TABLET BY [facility] tablet 00:00: MOUTH ONCE [place] 00 DAILY Medical NEEDED Branch famotidine 2021-0 Yes TAKE 1 [facility] 40 mg 5-12 TABLET BY [facility] tablet 00:00: MOUTH ONCE [place] 00 DAILY Medical NEEDED Branch famotidine 2021-0 Yes TAKE 1 [facility] 40 mg 5-12 TABLET BY [facility] tablet 00:00: MOUTH ONCE [place] 00 DAILY Medical NEEDED Branch famotidine 2021-0 Yes TAKE 1 [facility] 40 mg 5-12 TABLET BY [facility] tablet 00:00: MOUTH ONCE [place] 00 DAILY Medical NEEDED Branch famotidine 2021-0 Yes TAKE 1 [facility] 40 mg 5-12 TABLET BY [facility] tablet 00:00: MOUTH ONCE [place] 00 DAILY Medical NEEDED Branch famotidine 2022-0 2023- No TAKE 1 [facility] 40 mg 5-12 04-28 TABLET BY [facility] tablet 00:00: 00:00 [place]CE [place] 00 :[place] DA[place] [facility] NEEDED [facility] famotidine 2022- No TAKE 1 [facility] 40 mg 08-23 TABLET BY [facility] tablet 00:00: 00:00 [place]CE [place] 00 :[place] DA[place] [facility] NEEDED [facility] fluticasone 2021- No [id number] 1{spray Use 1 [facility] propionate 08-23 } [place] in [facility] 50 00:00: 00:00 each [place] mcg/actuati 00 :00 nostril Medic al on nasal daily. Use [facility] spray 2 spray(s) in each nostril once daily fluticasone 2021- No [id number] 1{spray Use 1 [facility] propionate 08-23 } [place] in [facility] 50 00:00: 00:00 each [place] mcg/actuati 00 :00 nostril Medic al on nasal daily. Use Br[facility] spray 2 spray(s) in each nostril once daily dulaglutide Yes [id number] INJECT [facility] (TRULICITY) 5-06 1.5MG (1 [facility] of 1.5 mg/0.5 00:00: PEN) [place] mL PnIj 00 SUBCUTANEO Medica l USLY EVERY Branch WEEK dulaglutide Yes [id number] INJECT [facility] (TRULICITY) 5-06 1.5MG (1 [facility]y of 1.5 mg/0.5 00:00: PEN) [place] mL PnIj 00 SUBCUTANEO [facility] USLY EVERY Branch WEEK dulaglutide Yes [id number] INJECT [facility] (TRULICITY) 5-06 1.5MG (1 [facility]y of 1.5 mg/0.5 00:00: PEN) [place] mL PnIj 00 SUBCUTANEO [facility] USLY EVERY Branch WEEK dulaglutide Yes [id number] INJECT [facility] (TRULICITY) 5-06 1.5MG (1 [facility]y of 1.5 mg/0.5 00:00: PEN) [place] mL PnIj 00 SUBCUTANEO [facility] USLY EVERY Branch WEEK dulaglutide Yes [id number] INJECT [facility] (TRULICITY) 5-06 1.5MG (1 [facility]y of 1.5 mg/0.5 00:00: PEN) [place] mL PnIj 00 SUBCUTANEO [facility] USLY EVERY Branch WEEK dulaglutide Yes [id number] INJECT [facility] (TRULICITY) 5-06 1.5MG (1 [facility]y of 1.5 mg/0.5 00:00: PEN) [place] mL PnIj 00 SUBCUTANEO [facility] USLY EVERY Branch WEEK dulaglutide Yes [id number] INJECT [facility] (TRULICITY) 5-06 1.5MG (1 [facility]y of 1.5 mg/0.5 00:00: PEN) [place] mL PnIj 00 SUBCUTANEO [facility] USLY EVERY Branch WEEK dulaglutide Yes [id number] INJECT [facility] (TRULICITY) 5-06 1.5MG (1 [facility]y of 1.5 mg/0.5 00:00: PEN) [place] mL PnIj 00 SUBCUTANEO [facility] USLY EVERY Branch WEEK dulaglutide Yes [id number] INJECT [facility] (TRULICITY) 5-06 1.5MG (1 [facility]y of 1.5 mg/0.5 00:00: PEN) [place] mL PnIj 00 SUBCUTANEO [facility] USLY EVERY Branch WEEK dulaglutide Yes [id number] INJECT [facility] (TRULICITY) 5-06 1.5MG (1 [facility]y of 1.5 mg/0.5 00:00: PEN) [place] mL PnIj 00 SUBCUTANEO [facility] USLY EVERY Branch WEEK dulaglutide Yes [id number] INJECT [facility] (TRULICITY) 5-06 1.5MG (1 [facility]y of 1.5 mg/0.5 00:00: PEN) [place] mL PnIj 00 SUBCUTANEO [facility] USLY EVERY Branch WEEK dulaglutide Yes [id number] INJECT [facility] (TRULICITY) 5-06 1.5MG (1 [facility]y of 1.5 mg/0.5 00:00: PEN) [place] mL PnIj 00 SUBCUTANEO [facility] USLY EVERY Branch WEEK dulaglutide Yes [id number] INJECT [facility] (TRULICITY) 5-06 1.5MG (1 [facility]y of 1.5 mg/0.5 00:00: PEN) [place] mL PnIj 00 SUBCUTANEO [facility] USLY EVERY Branch WEEK dulaglutide Yes [id number] INJECT [facility] (TRULICITY) 5-06 1.5MG (1 ity of 1.5 mg/0.5 00:00: PEN) [place] mL PnIj 00 SUBCUTANEO [facility] USLY EVERY Branch WEEK dulaglutide Yes [id number] INJECT [facility] (TRULICITY) 5-06 1.5MG (1 ity of 1.5 mg/0.5 00:00: PEN) [place] mL PnIj 00 SUBCUTANEO [facility] USLY EVERY Branch WEEK dulaglutide Yes [id number] INJECT [facility] (TRULICITY) 5-06 1.5MG (1 ity of 1.5 mg/0.5 00:00: PEN) [place] mL PnIj 00 SUBCUTANEO [facility] USLY EVERY Branch WEEK dulaglutide Yes [id number] INJECT [facility] (TRULICITY) 5-06 1.5MG (1 [facility]y of 1.5 mg/0.5 00:00: PEN) [place] mL PnIj 00 SUBCUTANEO [facility] USLY EVERY Branch WEEK dulaglutide Yes [id number] INJECT [facility] (TRULICITY) 5-06 1.5MG (1 ity of 1.5 mg/0.5 00:00: PEN) [place] mL PnIj 00 SUBCUTANEO [facility] USLY EVERY Branch WEEK dulaglutide Yes [id number] INJECT [facility] (TRULICITY) 5-06 1.5MG (1 ity of 1.5 mg/0.5 00:00: PEN) [place] mL PnIj 00 SUBCUTANEO [facility] USLY EVERY Branch WEEK dulaglutide Yes [id number] INJECT [facility] (TRULICITY) 5-06 1.5MG (1 ity of 1.5 mg/0.5 00:00: PEN) [place] mL PnIj 00 SUBCUTANEO [facility] USLY EVERY Branch WEEK dulaglutide Yes [id number] INJECT [facility] (TRULICITY) 5-06 1.5MG (1 ity of 1.5 mg/0.5 00:00: PEN) [place] mL PnIj 00 SUBCUTANEO [facility] USLY EVERY Branch WEEK dulaglutide Yes [id number] INJECT [facility] (TRULICITY) 5-06 1.5MG (1 ity of 1.5 mg/0.5 00:00: PEN) [place] mL PnIj 00 SUBCUTANEO [facility] USLY EVERY Branch WEEK dulaglutide Yes [id number] INJECT [facility] (TRULICITY) 5-06 1.5MG (1 ity of 1.5 mg/0.5 00:00: PEN) [place] mL PnIj 00 SUBCUTANEO [facility] USLY EVERY Branch WEEK dulaglutide Yes [id number] INJECT [facility] (TRULICITY) 5-06 1.5MG (1 ity of 1.5 mg/0.5 00:00: PEN) [place] mL PnIj 00 SUBCUTANEO [facility] USLY EVERY Branch WEEK dulaglutide Yes [id number] INJECT [facility] (TRULICITY) 5-06 1.5MG (1 ity of 1.5 mg/0.5 00:00: PEN) [place] mL PnIj 00 SUBCUTANEO [facility] USLY EVERY Branch WEEK dulaglutide Yes [id number] INJECT [facility] (TRULICITY) 5-06 1.5MG (1 ity of 1.5 mg/0.5 00:00: PEN) [place] mL PnIj 00 SUBCUTANEO [facility] USLY EVERY Branch WEEK dulaglutide Yes [id number] INJECT [facility] (TRULICITY) 5-06 1.5MG (1 ity of 1.5 mg/0.5 00:00: PEN) [place] mL PnIj 00 SUBCUTANEO [facility] USLY EVERY Branch WEEK dulaglutide Yes [id number] INJECT [facility] (TRULICITY) 5-06 1.5MG (1 ity of 1.5 mg/0.5 00:00: PEN) [place] mL PnIj 00 SUBCUTANEO [facility] USLY EVERY Branch WEEK dulaglutide Yes [id number] INJECT [facility] (TRULICITY) 5-06 1.5MG (1 ity of 1.5 mg/0.5 00:00: PEN) [place] mL PnIj 00 SUBCUTANEO [facility] USLY EVERY Branch WEEK dulaglutide Yes [id number] INJECT [facility] (TRULICITY) 5-06 1.5MG (1 ity of 1.5 mg/0.5 00:00: PEN) [place] mL PnIj 00 SUBCUTANEO [facility] USLY EVERY Branch WEEK dulaglutide Yes [id number] INJECT [facility] (TRULICITY) 5-06 1.5MG (1 ity of 1.5 mg/0.5 00:00: PEN) [place] mL PnIj 00 SUBCUTANEO [facility] USLY EVERY Branch WEEK dulaglutide Yes [id number] INJECT [facility] (TRULICITY) 5-06 1.5MG (1 ity of 1.5 mg/0.5 00:00: PEN) [place] mL PnIj 00 SUBCUTANEO [facility] USLY EVERY Branch WEEK dulaglutide Yes [id number] INJECT [facility] (TRULICITY) 5-06 1.5MG (1 ity of 1.5 mg/0.5 00:00: PEN) [place] mL PnIj 00 SUBCUTANEO [facility] USLY EVERY Branch WEEK dulaglutide Yes [id number] INJECT [facility] (TRULICITY) 5-06 1.5MG (1 ity of 1.5 mg/0.5 00:00: PEN) [place] mL PnIj 00 SUBCUTANEO [facility] USLY EVERY Branch WEEK dulaglutide Yes [id number] INJECT [facility] (TRULICITY) 5-06 1.5MG (1 ity of 1.5 mg/0.5 00:00: PEN) [place] mL PnIj 00 SUBCUTANEO [facility] USLY EVERY Branch WEEK dulaglutide Yes [id number] INJECT [facility] (TRULICITY) 5-06 1.5MG (1 ity of 1.5 mg/0.5 00:00: PEN) [place] mL PnIj 00 SUBCUTANEO [facility] USLY EVERY Branch WEEK dulaglutide Yes [id number] INJECT [facility] (TRULICITY) 5-06 1.5MG (1 ity of 1.5 mg/0.5 00:00: PEN) [place] mL PnIj 00 SUBCUTANEO [facility] USLY EVERY Branch WEEK dulaglutide Yes [id number] INJECT [facility] (TRULICITY) 5-06 1.5MG (1 ity of 1.5 mg/0.5 00:00: PEN) [place] mL PnIj 00 SUBCUTANEO [facility] USLY EVERY Branch WEEK dulaglutide Yes [id number] INJECT [facility] (TRULICITY) 5-06 1.5MG (1 ity of 1.5 mg/0.5 00:00: PEN) [place] mL PnIj 00 SUBCUTANEO [facility] USLY EVERY Branch WEEK dulaglutide Yes [id number] INJECT [facility] (TRULICITY) 5-06 1.5MG (1 ity of 1.5 mg/0.5 00:00: PEN) [place] mL PnIj 00 SUBCUTANEO [facility] USLY EVERY Branch WEEK dulaglutide Yes [id number] INJECT [facility] (TRULICITY) 5-06 1.5MG (1 ity of 1.5 mg/0.5 00:00: PEN) [place] mL PnIj 00 SUBCUTANEO [facility] USLY EVERY Branch WEEK dulaglutide Yes [id number] INJECT [facility] (TRULICITY) 5-06 1.5MG (1 ity of 1.5 mg/0.5 00:00: PEN) [place] mL PnIj 00 SUBCUTANEO [facility] USLY EVERY Branch WEEK dulaglutide Yes [id number] INJECT [facility] (TRULICITY) 5-06 1.5MG (1 ity of 1.5 mg/0.5 00:00: PEN) [place] mL PnIj 00 SUBCUTANEO [facility] USLY EVERY Branch WEEK dulaglutide Yes [id number] INJECT [facility] (TRULICITY) 5-06 1.5MG (1 ity of 1.5 mg/0.5 00:00: PEN) [place] mL PnIj 00 SUBCUTANEO [facility] USLY EVERY Branch WEEK dulaglutide Yes [id number] INJECT [facility] (TRULICITY) 5-06 1.5MG (1 ity of 1.5 mg/0.5 00:00: PEN) [place] mL PnIj 00 SUBCUTANEO [facility] USLY EVERY Branch WEEK dulaglutide Yes [id number] INJECT [facility] (TRULICITY) 5-06 1.5MG (1 ity of 1.5 mg/0.5 00:00: PEN) [place] mL PnIj 00 SUBCUTANEO [facility] USLY EVERY Branch WEEK dulaglutide Yes [id number] INJECT [facility] (TRULICITY) 5-06 1.5MG (1 ity of 1.5 mg/0.5 00:00: PEN) [place] mL PnIj 00 SUBCUTANEO [facility] USLY EVERY Branch WEEK dulaglutide Yes [id number] INJECT [facility] (TRULICITY) 5-06 1.5MG (1 ity of 1.5 mg/0.5 00:00: PEN) [place] mL PnIj 00 SUBCUTANEO [facility] USLY EVERY Branch WEEK dulaglutide Yes [id number] INJECT [facility] (TRULICITY) 5-06 1.5MG (1 ity of 1.5 mg/0.5 00:00: PEN) [place] mL PnIj 00 SUBCUTANEO [facility] USLY EVERY Branch WEEK dulaglutide Yes [id number] INJECT [facility] (TRULICITY) 5-06 1.5MG (1 ity of 1.5 mg/0.5 00:00: PEN) [place] mL PnIj 00 SUBCUTANEO [facility] USLY EVERY Branch WEEK dulaglutide Yes [id number] INJECT [facility] (TRULICITY) 5-06 1.5MG (1 ity of 1.5 mg/0.5 00:00: PEN) [place] mL PnIj 00 SUBCUTANEO [facility] USLY EVERY Branch WEEK dulaglutide Yes [id number] INJECT [facility] (TRULICITY) 5-06 1.5MG (1 ity of 1.5 mg/0.5 00:00: PEN) [place] mL PnIj 00 SUBCUTANEO [facility] USLY EVERY Branch WEEK dulaglutide Yes [id number] INJECT [facility] (TRULICITY) 5-06 1.5MG (1 ity of 1.5 mg/0.5 00:00: PEN) [place] mL PnIj 00 SUBCUTANEO [facility] USLY EVERY Branch WEEK dulaglutide Yes [id number] INJECT [facility] (TRULICITY) 5-06 1.5MG (1 ity of 1.5 mg/0.5 00:00: PEN) [place] mL PnIj 00 SUBCUTANEO [facility] USLY EVERY Branch WEEK dulaglutide Yes [id number] INJECT [facility] (TRULICITY) 5-06 1.5MG (1 ity of 1.5 mg/0.5 00:00: PEN) [place] mL PnIj 00 SUBCUTANEO [facility] USLY EVERY Branch WEEK dulaglutide Yes [id number] INJECT [facility] (TRULICITY) 5-06 1.5MG (1 ity of 1.5 mg/0.5 00:00: PEN) [place] mL PnIj 00 SUBCUTANEO [facility] USLY EVERY Branch WEEK dulaglutide Yes [id number] INJECT [facility] (TRULICITY) 5-06 1.5MG (1 ity of 1.5 mg/0.5 00:00: PEN) [place] mL PnIj 00 SUBCUTANEO [facility] USLY EVERY Branch WEEK dulaglutide Yes [id number] INJECT [facility] (TRULICITY) 5-06 1.5MG (1 ity of 1.5 mg/0.5 00:00: PEN) [place] mL PnIj 00 SUBCUTANEO [facility] USLY EVERY Branch WEEK dulaglutide Yes [id number] INJECT [facility] (TRULICITY) 5-06 1.5MG (1 ity of 1.5 mg/0.5 00:00: PEN) [place] mL PnIj 00 SUBCUTANEO [facility] USLY EVERY Branch WEEK dulaglutide Yes [id number] INJECT [facility] (TRULICITY) 5-06 1.5MG (1 ity of 1.5 mg/0.5 00:00: PEN) [place] mL PnIj 00 SUBCUTANEO [facility] USLY EVERY Branch WEEK dulaglutide Yes [id number] INJECT [facility] (TRULICITY) 5-06 1.5MG (1 ity of 1.5 mg/0.5 00:00: PEN) [place] mL PnIj 00 SUBCUTANEO [facility] USLY EVERY Branch WEEK dulaglutide Yes [id number] INJECT [facility] (TRULICITY) 5-06 1.5MG (1 ity of 1.5 mg/0.5 00:00: PEN) [place] mL PnIj 00 SUBCUTANEO [facility] USLY EVERY Branch WEEK dulaglutide Yes [id number] INJECT [facility] (TRULICITY) 5-06 1.5MG (1 ity of 1.5 mg/0.5 00:00: PEN) [place] mL PnIj 00 SUBCUTANEO [facility] USLY EVERY Branch WEEK dulaglutide Yes [id number] INJECT [facility] (TRULICITY) 5-06 1.5MG (1 ity of 1.5 mg/0.5 00:00: PEN) [place] mL PnIj 00 SUBCUTANEO [facility] USLY EVERY Branch WEEK dulaglutide Yes [id number] INJECT [facility] (TRULICITY) 5-06 1.5MG (1 ity of 1.5 mg/0.5 00:00: PEN) [place] mL PnIj 00 SUBCUTANEO [facility] USLY EVERY Branch WEEK dulaglutide Yes [id number] INJECT [facility] (TRULICITY) 5-06 1.5MG (1 ity of 1.5 mg/0.5 00:00: PEN) [place] mL PnIj 00 SUBCUTANEO [facility] USLY EVERY Branch WEEK dulaglutide Yes [id number] INJECT [facility] (TRULICITY) 5-06 1.5MG (1 ity of 1.5 mg/0.5 00:00: PEN) [place] mL PnIj 00 SUBCUTANEO [facility] USLY EVERY Branch WEEK dulaglutide Yes [id number] INJECT [facility] (TRULICITY) 5-06 1.5MG (1 ity of 1.5 mg/0.5 00:00: PEN) [place] mL PnIj 00 SUBCUTANEO [facility] USLY EVERY Branch WEEK dulaglutide Yes [id number] INJECT [facility] (TRULICITY) 5-06 1.5MG (1 ity of 1.5 mg/0.5 00:00: PEN) [place] mL PnIj 00 SUBCUTANEO [facility] USLY EVERY Branch WEEK dulaglutide Yes [id number] INJECT [facility] (TRULICITY) 5-06 1.5MG (1 ity of 1.5 mg/0.5 00:00: PEN) [place] mL PnIj 00 SUBCUTANEO [facility] USLY EVERY Branch WEEK dulaglutide Yes [id number] INJECT [facility] (TRULICITY) 5-06 1.5MG (1 ity of 1.5 mg/0.5 00:00: PEN) [place] mL PnIj 00 SUBCUTANEO [facility] USLY EVERY Branch WEEK dulaglutide Yes [id number] INJECT [facility] (TRULICITY) 5-06 1.5MG (1 ity of 1.5 mg/0.5 00:00: PEN) [place] mL PnIj 00 SUBCUTANEO [facility] USLY EVERY Branch WEEK dulaglutide Yes [id number] INJECT [facility] (TRULICITY) 5-06 1.5MG (1 ity of 1.5 mg/0.5 00:00: PEN) [place] mL PnIj 00 SUBCUTANEO [facility] USLY EVERY Branch WEEK dulaglutide Yes [id number] INJECT [facility] (TRULICITY) 5-06 1.5MG (1 ity of 1.5 mg/0.5 00:00: PEN) [place] mL PnIj 00 SUBCUTANEO [facility] USLY EVERY Branch WEEK dulaglutide Yes [id number] INJECT [facility] (TRULICITY) 5-06 1.5MG (1 ity of 1.5 mg/0.5 00:00: PEN) [place] mL PnIj 00 SUBCUTANEO [facility] USLY EVERY Branch WEEK dulaglutide Yes [id number] INJECT [facility] (TRULICITY) 5-06 1.5MG (1 ity of 1.5 mg/0.5 00:00: PEN) [place] mL PnIj 00 SUBCUTANEO [facility] USLY EVERY Branch WEEK dulaglutide Yes [id number] INJECT [facility] (TRULICITY) 5-06 1.5MG (1 ity of 1.5 mg/0.5 00:00: PEN) [place] mL PnIj 00 SUBCUTANEO [facility] USLY EVERY Branch WEEK dulaglutide Yes [id number] INJECT [facility] (TRULICITY) 5-06 1.5MG (1 ity of 1.5 mg/0.5 00:00: PEN) [place] mL PnIj 00 SUBCUTANEO [facility] USLY EVERY Branch WEEK dulaglutide Yes [id number] INJECT [facility] (TRULICITY) 5-06 1.5MG (1 ity of 1.5 mg/0.5 00:00: PEN) [place] mL PnIj 00 SUBCUTANEO [facility] USLY EVERY Branch WEEK dulaglutide Yes [id number] INJECT [facility] (TRULICITY) 5-06 1.5MG (1 ity of 1.5 mg/0.5 00:00: PEN) [place] mL PnIj 00 SUBCUTANEO [facility] USLY EVERY Branch WEEK dulaglutide Yes [id number] INJECT [facility] (TRULICITY) 5-06 1.5MG (1 ity of 1.5 mg/0.5 00:00: PEN) [place] mL PnIj 00 SUBCUTANEO [facility] USLY EVERY Branch WEEK dulaglutide Yes [id number] INJECT [facility] (TRULICITY) 5-06 1.5MG (1 ity of 1.5 mg/0.5 00:00: PEN) [place] mL PnIj 00 SUBCUTANEO [facility] USLY EVERY Branch WEEK dulaglutide Yes [id number] INJECT [facility] (TRULICITY) 5-06 1.5MG (1 ity of 1.5 mg/0.5 00:00: PEN) [place] mL PnIj 00 SUBCUTANEO [facility] USLY EVERY Branch WEEK dulaglutide Yes [id number] INJECT [facility] (TRULICITY) 5-06 1.5MG (1 ity of 1.5 mg/0.5 00:00: PEN) [place] mL PnIj 00 SUBCUTANEO [facility] US[facility] EVERY [facility] WEEK dulaglutide Yes [id number] INJECT [facility] (TRULICITY) 5-06 1.5MG (1 ity of 1.5 mg/0.5 00:00: PEN) [place] mL PnIj 00 SUBCUTANEO [facility] USLY EVERY Branch WEEK dulaglutide Yes [id number] INJECT [facility] (TRULICITY) 5-06 1.5MG (1 ity of 1.5 mg/0.5 00:00: PEN) [place] mL PnIj 00 SUBCUTANEO [facility] USLY EVERY Branch WEEK dulaglutide Yes [id number] INJECT [facility] (TRULICITY) 5-06 1.5MG (1 ity of 1.5 mg/0.5 00:00: PEN) [place] mL PnIj 00 SUBCUTANEO [facility] USLY EVERY Branch WEEK dulaglutide Yes [id number] INJECT [facility] (TRULICITY) 5-06 1.5MG (1 ity of 1.5 mg/0.5 00:00: PEN) [place] mL PnIj 00 SUBCUTANEO [facility] US[facility] EVERY [facility] WEEK dulaglutide 3- No [id number] INJECT [facility] (TRULICITY) 08-17-28 1.5MG (1 ity of 1.5 mg/0.5 00:00: 00:00 PEN) [place] mL PnIj 00 :00 SUBCUTANEO [facility] USLY EVERY [facility] WEEK dulaglutide 3- No [id number] INJECT [facility] (TRULICITY) [id number] 1.5MG (1 ity of 1.5 mg/0.5 00:00: 00:00 PEN) [place] mL PnIj 00 :00 SUBCUTANEO [facility] USLY EVERY [facility] WEEK latanoprost Yes [facility] 0.005 % 4-27 [facility] ophthalmic 00:00: [place] drops [facility] latanoprost Yes [facility] 0.005 % 4-27 [facility] of ophthalmic 00:00: [place] drops [facility] latanoprost Yes [facility] 0.005 % 4-27 [facility]y of ophthalmic 00:00: [place] drops [facility] latanoprost 0 Yes [facility] s 0.005 % 4-27 [facility]y of ophthalmic 00:00: [place] drops [facility] latanoprost 0 Yes [facility] 0.005 % 4-27 [facility]y of ophthalmic 00:00: [place] drops [facility] latanoprost 0 Yes Un[facility] s 0.005 % 4-27 [facility]y of ophthalmic 00:00: [place] drops [facility] latanoprost 0 Yes [facility] s 0.005 % 4-27 [facility]y of ophthalmic 00:00: [place] drops [facility] latanoprost 0 Yes Un[facility] s 0.005 % 4-27 [facility]y of ophthalmic 00:00: [place] drops 00 [facility] latanoprost 0 Yes [facility] s 0.005 % 4-27 [facility]y of ophthalmic 00:00: [place] drops [facility] latanoprost 0 Yes Un[facility] s 0.005 % 4-27 [facility]y of ophthalmic 00:00: [place] [facility] latanoprost 0 Yes Univer s 0.005 % 4-27 [facility]y of ophthalmic 00:00: [place] [facility] latanoprost 0 Yes Univer s 0.005 % 27 [facility]y of ophthalmic 00:00: [place] [facility] 00 [facility] latanoprost 0 Yes Univer s 0.005 % 27 [facility]y of ophthalmic 00:00: [place] [facility] 00 [facility] latanoprost 0 Yes Univer s 0.005 % 427 it[facility] of ophthalmic 00:00: [place] [facility] latanoprost 0 Yes Univer s 0.005 % 27 [facility]y of ophthalmic 00:00: [place] [facility] 00 [facility] latanoprost 0 Yes Univer s 0.005 % 27 [facility] of ophthalmic 00:00: [place] [facility] latanoprost 0 Yes Univer s 0.005 % 27 [facility] of ophthalmic 00:00: [place] [facility] latanoprost 0 Yes Univer s 0.005 % 27 [facility]y of ophthalmic 00:00: [place] [facility] latanoprost 0 Yes Univer s 0.005 % 27 [facility]y of ophthalmic 00:00: [place] [facility] latanoprost 0 Yes Univer s 0.005 % 27 [facility] of ophthalmic 00:00: [place] [facility] latanoprost 0 Yes Univer s 0.005 % 08-08 [facility] of ophthalmic 00:00: [place] [facility] 00 [facility] latanoprost 0 Yes Univer s 0.005 % 27 [facility] of ophthalmic 00:00: [place] drops 00 [facility] latanoprost 0 Yes Univer s 0.005 % 27 [facility] of ophthalmic 00:00: [place] drops 00 [facility] latanoprost 0 Yes Univer s 0.005 % 427 [facility] of ophthalmic 00:00: [place] drops 00 [facility] latanoprost 0 Yes Univer s 0.005 % 4-27 [facility]y of ophthalmic 00:00: [place] drops 00 [facility] latanoprost 0 Yes Univer s 0.005 % 427 [facility] of ophthalmic 00:00: [place] drops 00 [facility] latanoprost 0 Yes Univer s 0.005 % 4-27 [facility]y of ophthalmic 00:00: [place] drops 00 [facility] latanoprost 0 Yes Univer s 0.005 % 4-27 [facility]y of ophthalmic 00:00: [place] drops 00 [facility] latanoprost 0 Yes Univer s 0.005 % 4-27 [facility] of ophthalmic 00:00: [place] drops 00 [facility] latanoprost 0 Yes Univer s 0.005 % 4-27 [facility] of ophthalmic 00:00: [place] drops 00 [facility] latanoprost Yes Univer s 0.005 % 4-27 [facility]y of ophthalmic 00:00: [place] drops 00 [facility] latanoprost Yes Univer s 0.005 % 4-27 [facility]y of ophthalmic 00:00: [place] drops 00 [facility] latanoprost Yes Univer s 0.005 % 427 ity of ophthalmic 00:00: [place] drops 00 [facility] latanoprost Yes Univer s 0.005 % 08-08 [facility] of ophthalmic 00:00: [place] drops 00 [facility] latanoprost Yes Univer s 0.005 % 27 [facility]y of ophthalmic 00:00: [place] drops 00 [facility] latanoprost Yes Univer s 0.005 % 27 [facility] of ophthalmic 00:00: [place] drops 00 [facility] latanoprost 0 Yes Univer s 0.005 % 27 ity of ophthalmic 00:00: [place] drops 00 [facility] latanoprost 0 Yes Univer s 0.005 % 427 [facility] of ophthalmic 00:00: [place] drops 00 [facility] latanoprost 0 Yes Univer s 0.005 % 4-27 [facility]y of ophthalmic 00:00: [place] drops 00 [facility] latanoprost 0 Yes Univer s 0.005 % 4-27 [facility]y of ophthalmic 00:00: [place] drops 00 [facility] latanoprost 0 Yes Univer s 0.005 % 4-27 [facility]y of ophthalmic 00:00: [place] drops 00 [facility] latanoprost 0 Yes Univer s 0.005 % 4-27 [facility]y of ophthalmic 00:00: [place] drops 00 [facility] latanoprost Yes Univer s 0.005 % 4-27 [facility]y of ophthalmic 00:00: [place] drops 00 [facility] latanoprost 0 Yes Univer s 0.005 % 4-27 [facility]y of ophthalmic 00:00: [place] [facility] latanoprost Yes Univer s 0.005 % 4-27 ity of ophthalmic 00:00: [place] [facility] latanoprost Yes Univer s 0.005 % 4-27 ity of ophthalmic 00:00: [place] [facility] latanoprost Yes Univer s 0.005 % 4-27 [facility]y of ophthalmic 00:00: [place] [facility] latanoprost Yes Univer s 0.005 % 4-27 [facility]y of ophthalmic 00:00: [place] [facility] latanoprost Yes Univer s 0.005 % 4-27 ity of ophthalmic 00:00: [place] [facility] latanoprost Yes Univer s 0.005 % 4-27 [facility] of ophthalmic 00:00: [place] [facility] latanoprost Yes [facility] 0.005 % 4-27 [facility] of ophthalmic 00:00: [place] [facility] latanoprost Yes [facility] 0.005 % 4-27 ity of ophthalmic 00:00: [place] [facility] latanoprost 0 Yes [facility] 0.005 % 4-27 ity of ophthalmic 00:00: [place] [facility] latanoprost 0 Yes [facility] 0.005 % 4-27 ity of ophthalmic 00:00: [place] drops 00 [facility] latanoprost 0 Yes [facility] 0.005 % 4-27 ity of ophthalmic 00:00: [place] drops 00 [facility] latanoprost 0 Yes [facility] 0.005 % 4-27 ity of ophthalmic 00:00: [place] drops 00 [facility] latanoprost 0 Yes [facility] 0.005 % 4-27 ity of ophthalmic 00:00: [place] drops 00 [facility] latanoprost 0 Yes [facility] 0.005 % 4-27 ity of ophthalmic 00:00: [place] drops 00 [facility] latanoprost 0 Yes [facility] 0.005 % 08-08 ity of ophthalmic 00:00: [place] drops 00 [facility] latanoprost 0 Yes [facility] 0.005 % 08-08 ity of ophthalmic 00:00: [place] drops 00 [facility] latanoprost 0 Yes [facility] 0.005 % 08-08 ity of ophthalmic 00:00: [place] drops 00 [facility] latanoprost 0 Yes [facility] 0.005 % 08-08 ity of ophthalmic 00:00: [place] drops 00 [facility] latanoprost 0 Yes [facility] 0.005 % 08-08 ity of ophthalmic 00:00: [place] drops 00 [facility] latanoprost 0 Yes [facility] 0.005 % 08-08 ity of ophthalmic 00:00: [place] drops 00 [facility] latanoprost 0 Yes [facility] 0.005 % 08-08 ity of ophthalmic 00:00: [place] drops 00 [facility] latanoprost 0 Yes [facility] 0.005 % 08-08 ity of ophthalmic 00:00: [place] drops 00 [facility] latanoprost 0 Yes [facility] 0.005 % 08-08 ity of ophthalmic 00:00: [place] drops 00 [facility] latanoprost 0 Yes [facility] 0.005 % 08-08 ity of ophthalmic 00:00: [place] drops 00 [facility] latanoprost 0 Yes [facility] 0.005 % 08-08 ity of ophthalmic 00:00: [place] drops 00 [facility] latanoprost 0 Yes [facility] 0.005 % 08-08 ity of ophthalmic 00:00: [place] drops 00 [facility] latanoprost 0 Yes [facility] 0.005 % 27 ity of ophthalmic 00:00: [place] drops 00 [facility] latanoprost 0 Yes [facility] 0.005 % 4 ity of ophthalmic 00:00: [place] drops 00 [facility] latanoprost 0 Yes [facility] 0.005 % 08-08 ity of ophthalmic 00:00: [place] drops 00 [facility] latanoprost 0 Yes [facility] 0.005 % 4-27 ity of ophthalmic 00:00: [place] drops 00 [facility] latanoprost 0 Yes [facility] 0.005 % 4-27 ity of ophthalmic 00:00: [place] drops 00 [facility] latanoprost Yes [facility] 0.005 % 4-27 ity of ophthalmic 00:00: [place] [facility] latanoprost 0 Yes [facility] 0.005 % 4-27 ity of ophthalmic 00:00: [place] [facility] latanoprost Yes [facility] 0.005 % 427 ity of ophthalmic 00:00: [place] [facility] latanoprost Yes [facility] 0.005 % 4-27 ity of ophthalmic 00:00: [place] [facility] latanoprost Yes [facility] 0.005 % 427 ity of ophthalmic 00:00: [place] [facility] latanoprost Yes [facility] 0.005 % 27 ity of ophthalmic 00:00: [place] [facility] latanoprost Yes [facility] 0.005 % 27 ity of ophthalmic 00:00: [place] drops 00 [facility] latanoprost Yes [facility] 0.005 % 27 ity of ophthalmic 00:00: [place] [facility] latanoprost 0 Yes [facility] 0.005 % 427 ity of ophthalmic 00:00: [place] drops 00 [facility] latanoprost 0 Yes [facility] 0.005 % 427 ity of ophthalmic 00:00: [place] drops 00 [facility] latanoprost 0 Yes [facility] 0.005 % 4-27 ity of ophthalmic 00:00: [place] drops 00 [facility] latanoprost 0 Yes [facility] 0.005 % 4-27 ity of ophthalmic 00:00: [place] drops 00 [facility] latanoprost 0 Yes [facility] 0.005 % 4-27 ity of ophthalmic 00:00: [place] drops 00 [facility] latanoprost 0 Yes [facility] 0.005 % 4-27 ity of ophthalmic 00:00: [place] drops 00 [facility] latanoprost 0 Yes [facility] 0.005 % 4-27 ity of ophthalmic 00:00: [place] [facility] latanoprost 0 Yes [facility] 0.005 % 4-27 ity of ophthalmic 00:00: [place] [facility] latanoprost 0 Yes [facility] 0.005 % 4-27 ity of ophthalmic 00:00: [place] [facility] latanoprost 0 Yes [facility] 0.005 % 4-27 ity of ophthalmic 00:00: [place] [facility] latanoprost 0 Yes [facility] 0.005 % 4-27 ity of ophthalmic 00:00: [place] [facility] latanoprost 0 Yes [facility] 0.005 % 4-27 ity of ophthalmic 00:00: [place] [facility] latanoprost 0 Yes [facility] 0.005 % 4-27 ity of ophthalmic 00:00: [place] [facility] latanoprost 0 Yes [facility] 0.005 % 4-27 ity of ophthalmic 00:00: [place] [facility] Clobetasol 0 Yes [id number] Apply to [facility] Propionate 4-21 area(s) ity of 0.05 % 00:00: weekly. [place] shampoo [facility] Clobetasol 2021-0 Yes [id number] Apply to [facility] Propionate 4-21 area(s) ity of 0.05 % 00:00: weekly. [place] shampoo [facility] Clobetasol 2021-0 Yes [id number] Apply to [facility] Propionate 4-21 area(s) ity of 0.05 % 00:00: weekly. [place] shampoo [facility] Clobetasol 2021-0 Yes [id number] Apply to [facility] Propionate 4-21 area(s) ity of 0.05 % 00:00: weekly. [place] shampoo 00 [facility] Clobetasol 2021-0 Yes [id number] Apply to [facility] Propionate 4-21 area(s) ity of 0.05 % 00:00: weekly. [place] shampoo 00 [facility] Clobetasol 2021-0 Yes [id number] Apply to [facility] Propionate 4-21 area(s) ity of 0.05 % 00:00: weekly. [place] shampoo 00 [facility] Clobetasol 2-0 Yes [id number] Apply to [facility] Propionate 4-21 area(s) ity of 0.05 % 00:00: weekly. [place] shampoo 00 [facility] Clobetasol 2-0 Yes [id number] Apply to [facility] Propionate 4-21 area(s) ity of 0.05 % 00:00: weekly. [place] shampoo 00 [facility] Clobetasol 2-0 Yes [id number] Apply to [facility] Propionate 4-21 area(s) ity of 0.05 % 00:00: weekly. [place] shampoo 00 [facility] Clobetasol 2-0 Yes [id number] Apply to [facility] Propionate 4-21 area(s) ity of 0.05 % 00:00: weekly. [place] shampoo 00 [facility] Clobetasol 2-0 Yes [id number] Apply to [facility] Propionate 4-21 area(s) ity of 0.05 % 00:00: weekly. [place] shampoo 00 [facility] Clobetasol 2-0 Yes [id number] Apply to [facility] Propionate 4-21 area(s) ity of 0.05 % 00:00: weekly. [place] shampoo 00 [facility] Clobetasol 2-0 Yes [id number] Apply to [facility] Propionate 4-21 area(s) ity of 0.05 % 00:00: weekly. [place] shampoo 00 [facility] Clobetasol 2-0 Yes [id number] Apply to [facility] Propionate 4-21 area(s) ity of 0.05 % 00:00: weekly. [place] shampoo 00 [facility] Clobetasol 2-0 Yes [id number] Apply to [facility] Propionate 4-21 area(s) ity of 0.05 % 00:00: weekly. [place] shampoo 00 [facility] Clobetasol 2-0 Yes [id number] Apply to [facility] Propionate 4-21 area(s) ity of 0.05 % 00:00: weekly. [place] shampoo 00 [facility] Clobetasol 2-0 Yes [id number] Apply to [facility] Propionate 4-21 area(s) ity of 0.05 % 00:00: weekly. [place] shampoo 00 [facility] Clobetasol 2-0 Yes [id number] Apply to [facility] Propionate 4-21 area(s) ity of 0.05 % 00:00: weekly. [place] shampoo 00 [facility] Clobetasol 2-0 Yes [id number] Apply to [facility] Propionate 4-21 area(s) ity of 0.05 % 00:00: weekly. [place] shampoo 00 [facility] Clobetasol 2-0 Yes [id number] Apply to [facility] Propionate 4-21 area(s) ity of 0.05 % 00:00: weekly. [place] shampoo 00 [facility] Clobetasol 2-0 Yes [id number] Apply to [facility] Propionate 4-21 area(s) ity of 0.05 % 00:00: weekly. [place] shampoo 00 [facility] Clobetasol 2-0 Yes [id number] Apply to [facility] Propionate 4-21 area(s) ity of 0.05 % 00:00: weekly. [place] shampoo 00 [facility] Clobetasol 2-0 Yes [id number] Apply to [facility] Propionate 4-21 area(s) ity of 0.05 % 00:00: weekly. [place] shampoo 00 [facility] Clobetasol 2-0 Yes [id number] Apply to [facility] Propionate 4-21 area(s) ity of 0.05 % 00:00: weekly. [place] shampoo 00 [facility] Clobetasol 2-0 Yes [id number] Apply to [facility] Propionate 4-21 area(s) ity of 0.05 % 00:00: weekly. [place] shampoo 00 [facility] Clobetasol 2-0 Yes [id number] Apply to [facility] Propionate 4-21 area(s) ity of 0.05 % 00:00: weekly. [place] shampoo 00 [facility] Clobetasol 2-0 Yes [id number] Apply to [facility] Propionate 4-21 area(s) ity of 0.05 % 00:00: weekly. [place] shampoo 00 [facility] Clobetasol 2-0 Yes [id number] Apply to [facility] Propionate 4-21 area(s) ity of 0.05 % 00:00: weekly. [place] shampoo 00 [facility] Clobetasol 2-0 Yes [id number] Apply to [facility] Propionate 4-21 area(s) ity of 0.05 % 00:00: weekly. [place] shampoo 00 [facility] Clobetasol 2-0 Yes [id number] Apply to [facility] Propionate 4-21 area(s) ity of 0.05 % 00:00: weekly. [place] shampoo 00 [facility] Clobetasol 2-0 Yes [id number] Apply to [facility] Propionate 4-21 area(s) ity of 0.05 % 00:00: weekly. [place] shampoo 00 [facility] Clobetasol 2-0 Yes [id number] Apply to [facility] Propionate 4-21 area(s) ity of 0.05 % 00:00: weekly. [place] shampoo 00 [facility] Clobetasol 2-0 Yes [id number] Apply to [facility] Propionate 4-21 area(s) ity of 0.05 % 00:00: weekly. [place] shampoo 00 [facility] Clobetasol 2-0 Yes [id number] Apply to [facility] Propionate 4-21 area(s) ity of 0.05 % 00:00: weekly. [place] shampoo 00 [facility] Clobetasol 2-0 Yes [id number] Apply to [facility] Propionate 4-21 area(s) ity of 0.05 % 00:00: weekly. [place] shampoo 00 [facility] Clobetasol 2-0 Yes [id number] Apply to [facility] Propionate 4-21 area(s) ity of 0.05 % 00:00: weekly. [place] shampoo 00 [facility] Clobetasol 2-0 Yes [id number] Apply to [facility] Propionate 4-21 area(s) ity of 0.05 % 00:00: weekly. [place] shampoo 00 [facility] Clobetasol 2-0 Yes [id number] Apply to [facility] Propionate 4-21 area(s) ity of 0.05 % 00:00: weekly. [place] shampoo 00 [facility] Clobetasol 2-0 Yes [id number] Apply to [facility] Propionate 4-21 area(s) ity of 0.05 % 00:00: weekly. [place] shampoo 00 [facility] Clobetasol 2-0 Yes [id number] Apply to [facility] Propionate 4-21 area(s) ity of 0.05 % 00:00: weekly. [place] shampoo 00 [facility] Clobetasol 2-0 Yes [id number] Apply to [facility] Propionate 4-21 area(s) ity of 0.05 % 00:00: weekly. [place] shampoo 00 [facility] Clobetasol 2-0 Yes [id number] Apply to [facility] Propionate 4-21 area(s) ity of 0.05 % 00:00: weekly. [place] shampoo 00 [facility] Clobetasol 2-0 Yes [id number] Apply to [facility] Propionate 4-21 area(s) ity of 0.05 % 00:00: weekly. [place] shampoo 00 [facility] Clobetasol 2-0 Yes [id number] Apply to [facility] Propionate 4-21 area(s) ity of 0.05 % 00:00: weekly. [place] shampoo 00 [facility] Clobetasol 2-0 Yes [id number] Apply to [facility] Propionate 4-21 area(s) ity of 0.05 % 00:00: weekly. [place] shampoo 00 [facility] Clobetasol 2-0 Yes [id number] Apply to [facility] Propionate 4-21 area(s) ity of 0.05 % 00:00: weekly. [place] shampoo 00 [facility] Clobetasol 2-0 Yes [id number] Apply to [facility] Propionate 4-21 area(s) ity of 0.05 % 00:00: weekly. [place] shampoo 00 [facility] Clobetasol 2-0 Yes [id number] Apply to [facility] Propionate 4-21 area(s) ity of 0.05 % 00:00: weekly. [place] shampoo 00 [facility] Clobetasol 2-0 Yes [id number] Apply to [facility] Propionate 4-21 area(s) ity of 0.05 % 00:00: weekly. [place] shampoo 00 [facility] Clobetasol 2-0 Yes [id number] Apply to [facility] Propionate 4-21 area(s) ity of 0.05 % 00:00: weekly. [place] shampoo 00 [facility] Clobetasol 2-0 Yes [id number] Apply to [facility] Propionate 4-21 area(s) ity of 0.05 % 00:00: weekly. [place] shampoo 00 [facility] Clobetasol 2-0 Yes [id number] Apply to [facility] Propionate 4-21 area(s) ity of 0.05 % 00:00: weekly. [place] shampoo 00 [facility] Clobetasol 2-0 Yes [id number] Apply to [facility] Propionate 4-21 area(s) ity of 0.05 % 00:00: weekly. [place] shampoo 00 [facility] Clobetasol 2-0 Yes [id number] Apply to [facility] Propionate 4-21 area(s) ity of 0.05 % 00:00: weekly. [place] shampoo 00 [facility] Clobetasol 2-0 Yes [id number] Apply to [facility] Propionate 4-21 area(s) ity of 0.05 % 00:00: weekly. [place] shampoo 00 [facility] Clobetasol 2-0 Yes [id number] Apply to [facility] Propionate 4-21 area(s) ity of 0.05 % 00:00: weekly. [place] shampoo 00 [facility] Clobetasol 2-0 Yes [id number] Apply to [facility] Propionate 4-21 area(s) ity of 0.05 % 00:00: weekly. [place] shampoo 00 [facility] Clobetasol 2-0 Yes [id number] Apply to [facility] Propionate 4-21 area(s) ity of 0.05 % 00:00: weekly. [place] shampoo 00 [facility] Clobetasol 2-0 Yes [id number] Apply to [facility] Propionate 4-21 area(s) ity of 0.05 % 00:00: weekly. [place] shampoo 00 [facility] Clobetasol 2-0 Yes [id number] Apply to [facility] Propionate 4-21 area(s) ity of 0.05 % 00:00: weekly. [place] shampoo 00 [facility] Clobetasol 2-0 Yes [id number] Apply to [facility] Propionate 4-21 area(s) ity of 0.05 % 00:00: weekly. [place] shampoo 00 [facility] Clobetasol 2-0 Yes [id number] Apply to [facility] Propionate 4-21 area(s) ity of 0.05 % 00:00: weekly. [place] shampoo 00 [facility] Clobetasol 2-0 Yes [id number] Apply to [facility] Propionate 4-21 area(s) ity of 0.05 % 00:00: weekly. [place] shampoo 00 [facility] Clobetasol 2022-0 Yes [id number] Apply to [facility] Propionate 4-21 area(s) ity of 0.05 % 00:00: weekly. [place] shampoo 00 [facility] Clobetasol 2-0 Yes [id number] Apply to [facility] Propionate 4-21 area(s) ity of 0.05 % 00:00: weekly. [place] shampoo 00 [facility] Clobetasol 2-0 Yes [id number] Apply to [facility] Propionate 4-21 area(s) ity of 0.05 % 00:00: weekly. [place] shampoo 00 [facility] Clobetasol 2-0 Yes [id number] Apply to [facility] Propionate 4-21 area(s) ity of 0.05 % 00:00: weekly. [place] shampoo 00 [facility] Clobetasol 2-0 Yes [id number] Apply to [facility] Propionate 4-21 area(s) ity of 0.05 % 00:00: weekly. [place] shampoo 00 [facility] Clobetasol 2-0 Yes [id number] Apply to [facility] Propionate 4-21 area(s) ity of 0.05 % 00:00: weekly. [place] shampoo 00 [facility] Clobetasol 2-0 Yes [id number] Apply to [facility] Propionate 4-21 area(s) ity of 0.05 % 00:00: weekly. [place] shampoo 00 [facility] Clobetasol 2-0 Yes [id number] Apply to [facility] Propionate 4-21 area(s) ity of 0.05 % 00:00: weekly. [place] shampoo 00 [facility] Clobetasol 2-0 Yes [id number] Apply to [facility] Propionate 4-21 area(s) ity of 0.05 % 00:00: weekly. [place] shampoo 00 [facility] Clobetasol 2022-0 Yes [id number] Apply to [facility] Propionate 4-21 area(s) ity of 0.05 % 00:00: weekly. [place] shampoo 00 [facility] Clobetasol 2-0 Yes [id number] Apply to [facility] Propionate 4-21 area(s) ity of 0.05 % 00:00: weekly. [place] shampoo 00 [facility] Clobetasol 2-0 Yes [id number] Apply to [facility] Propionate 4-21 area(s) ity of 0.05 % 00:00: weekly. [place] shampoo 00 [facility] Clobetasol 2-0 Yes [id number] Apply to [facility] Propionate 4-21 area(s) ity of 0.05 % 00:00: weekly. [place] shampoo 00 [facility] Clobetasol 2-0 Yes [id number] Apply to [facility] Propionate 4-21 area(s) ity of 0.05 % 00:00: weekly. [place] shampoo 00 [facility] Clobetasol 2-0 Yes [id number] Apply to [facility] Propionate 4-21 area(s) ity of 0.05 % 00:00: weekly. [place] shampoo 00 [facility] Clobetasol 2021-0 Yes [id number] Apply to [facility] Propionate 4-21 area(s) ity of 0.05 % 00:00: weekly. [place] shampoo 00 [facility] Clobetasol 2-0 Yes [id number] Apply to [facility] Propionate 4-21 area(s) ity of 0.05 % 00:00: weekly. [place] shampoo 00 [facility] Clobetasol 2-0 Yes [id number] Apply to [facility] Propionate 4-21 area(s) ity of 0.05 % 00:00: weekly. [place] shampoo 00 [facility] Clobetasol 2-0 Yes [id number] Apply to [facility] Propionate 4-21 area(s) ity of 0.05 % 00:00: weekly. [place] shampoo 00 [facility] Clobetasol 2-0 Yes [id number] Apply to [facility] Propionate 4-21 area(s) ity of 0.05 % 00:00: weekly. [place] shampoo 00 [facility] Clobetasol 2-0 Yes [id number] Apply to [facility] Propionate 4-21 area(s) ity of 0.05 % 00:00: weekly. [place] shampoo 00 [facility] Clobetasol 2-0 Yes [id number] Apply to [facility] Propionate 4-21 area(s) ity of 0.05 % 00:00: weekly. [place] shampoo 00 [facility] Clobetasol 2-0 Yes [id number] Apply to [facility] Propionate 4-21 area(s) ity of 0.05 % 00:00: weekly. [place] shampoo 00 [facility] Clobetasol 2-0 Yes [id number] Apply to [facility] Propionate 4-21 area(s) ity of 0.05 % 00:00: weekly. [place] shampoo 00 [facility] Clobetasol 2021-0 Yes [id number] Apply to [facility] Propionate 4-21 area(s) ity of 0.05 % 00:00: weekly. [place] shampoo 00 [facility] Clobetasol 2021-0 Yes [id number] Apply to [facility] Propionate 4-21 area(s) ity of 0.05 % 00:00: weekly. [place] shampoo 00 [facility] Clobetasol 2021-0 Yes [id number] Apply to [facility] Propionate 4-21 area(s) ity of 0.05 % 00:00: weekly. [place] shampoo 00 [facility] Clobetasol 2021-0 Yes [id number] Apply to [facility] Propionate 4-21 area(s) ity of 0.05 % 00:00: weekly. [place] shampoo 00 [facility] Clobetasol 2021-0 Yes [id number] Apply to [facility] Propionate 4-21 area(s) ity of 0.05 % 00:00: weekly. [place] shampoo 00 [facility] Clobetasol 2021-0 Yes [id number] Apply to [facility] Propionate 4-21 area(s) ity of 0.05 % 00:00: weekly. [place] shampoo 00 [facility] Clobetasol 2-0 Yes [id number] Apply to [facility] Propionate 4-21 area(s) ity of 0.05 % 00:00: weekly. [place] shampoo 00 [facility] Clobetasol 2-0 Yes [id number] Apply to [facility] Propionate 4-21 area(s) ity of 0.05 % 00:00: weekly. [place] shampoo 00 [facility] Clobetasol 2-0 Yes [id number] Apply to [facility] Propionate 4-21 area(s) ity of 0.05 % 00:00: weekly. [place] shampoo 00 [facility] Clobetasol 2-0 Yes [id number] Apply to [facility] Propionate 4-21 area(s) ity of 0.05 % 00:00: weekly. [place] shampoo 00 [facility] clobetasoL 2-0 Yes [id number] Apply to [facility] 0.05 % 4-14 area(s) 2 ity of external 00:00: (two) [place] solution 00 times Medical daily. Branch doxycycline 2-0 Yes [id number] 100mg Take 1 [facility] monohydrate 4-14 capsule by it y of 100 mg 00:00: mouth 2 [place] capsule 00 (two) Medical times Branch daily. clobetasoL 2-0 Yes [id number] Apply to [facility] 0.05 % 4-14 area(s) 2 ity of external 00:00: (two) [place] solution 00 times Medical daily. Branch doxycycline 2021-0 Yes [id number] 100mg Take 1 [facility] monohydrate 4-14 capsule by it y of 100 mg 00:00: mouth 2 [place] capsule 00 (two) Medical times [facility] daily. clobetasoL 2-0 Yes [id number] Apply to [facility] 0.05 % 4-14 area(s) 2 ity of external 00:00: (two) [place] solution 00 times Medical daily. Branch doxycycline 2021-0 Yes [id number] 100mg Take 1 [facility] monohydrate 4-14 capsule by it y of 100 mg 00:00: mouth 2 [place] capsule 00 (two) Medical times [facility] daily. clobetasoL 2-0 Yes [id number] Apply to [facility] 0.05 % 4-14 area(s) 2 ity of external 00:00: (two) [place] solution 00 times Medical daily. [facility] doxycycline 2-0 Yes [id number] 100mg Take 1 [facility] monohydrate 4-14 capsule by it y of 100 mg 00:00: mouth 2 [place] capsule 00 (two) Medical times Branch daily. clobetasoL 2022-0 Yes [id number] Apply to [facility] 0.05 % 4-14 area(s) 2 ity of external 00:00: (two) [place] solution 00 times Medical daily. [facility] doxycycline 2-0 Yes [id number] 100mg Take 1 [facility] monohydrate 4-14 capsule by it y of 100 mg 00:00: mouth 2 [place] capsule 00 (two) Medical times [facility] daily. clobetasoL 2022-0 Yes [id number] Apply to [facility] 0.05 % 4-14 area(s) 2 ity of external 00:00: (two) [place] solution 00 times Medical daily. [facility] doxycycline 2-0 Yes [id number] 100mg Take 1 [facility] monohydrate 4-14 capsule by it y of 100 mg 00:00: mouth 2 [place] capsule 00 (two) Medical times [facility] daily. clobetasoL 2022-0 Yes [id number] Apply to [facility] 0.05 % 4-14 area(s) 2 ity of external 00:00: (two) [place] solution 00 times Medical daily. [facility] doxycycline 2021-0 Yes [id number] 100mg Take 1 [facility] monohydrate 4-14 capsule by it y of 100 mg 00:00: mouth 2 [place] capsule 00 (two) Medical times [facility] daily. clobetasoL 2-0 Yes [id number] Apply to [facility] 0.05 % 4-14 area(s) 2 ity of external 00:00: (two) [place] solution 00 times Medical daily. [facility] doxycycline 2021-0 Yes [id number] 100mg Take 1 [facility] monohydrate 4-14 capsule by it y of 100 mg 00:00: mouth 2 [place] capsule 00 (two) Medical times [facility] daily. clobetasoL 2022-0 Yes [id number] Apply to [facility] 0.05 % 4-14 area(s) 2 ity of external 00:00: (two) [place] solution 00 times Medical daily. [facility] doxycycline 2021-0 Yes [id number] 100mg Take 1 [facility] monohydrate 4-14 capsule by it y of 100 mg 00:00: mouth 2 [place] capsule 00 (two) Medical times [facility] daily. clobetasoL 2022-0 Yes [id number] Apply to [facility] 0.05 % 4-14 area(s) 2 ity of external 00:00: (two) [place] solution 00 times Medical daily. [facility] doxycycline 2-0 Yes [id number] 100mg Take 1 [facility] monohydrate 4-14 capsule by it y of 100 mg 00:00: mouth 2 [place] capsule 00 (two) Medical times [facility] daily. clobetasoL 2022-0 Yes [id number] Apply to [facility] 0.05 % 4-14 area(s) 2 ity of external 00:00: (two) [place] solution 00 times Medical daily. [facility] doxycycline 2-0 Yes [id number] 100mg Take 1 [facility] monohydrate 4-14 capsule by it y of 100 mg 00:00: mouth 2 [place] capsule 00 (two) Medical times [facility] daily. clobetasoL 2022-0 Yes [id number] Apply to [facility] 0.05 % 4-14 area(s) 2 ity of external 00:00: (two) [place] solution 00 times Medical daily. [facility] doxycycline 2-0 Yes [id number] 100mg Take 1 [facility] monohydrate 4-14 capsule by it y of 100 mg 00:00: mouth 2 [place] capsule 00 (two) Medical times [facility] daily. clobetasoL 2022-0 Yes [id number] Apply to [facility] 0.05 % 4-14 area(s) 2 ity of external 00:00: (two) [place] solution 00 times Medical daily. [facility] doxycycline 2-0 Yes [id number] 100mg Take 1 [facility] monohydrate 4-14 capsule by it y of 100 mg 00:00: mouth 2 [place] capsule 00 (two) Medical times Branch daily. clobetasoL 2022-0 Yes [id number] Apply to [facility] 0.05 % 4-14 area(s) 2 ity of external 00:00: (two) [place] solution 00 times Medical daily. [facility] doxycycline 2-0 Yes [id number] 100mg Take 1 [facility] monohydrate 4-14 capsule by it y of 100 mg 00:00: mouth 2 [place] capsule 00 (two) Medical times Branch daily. clobetasoL 2022-0 Yes [id number] Apply to [facility] 0.05 % 4-14 area(s) 2 ity of external 00:00: (two) [place] solution 00 times Medical daily. [facility] doxycycline 2-0 Yes [id number] 100mg Take 1 [facility] monohydrate 4-14 capsule by it y of 100 mg 00:00: mouth 2 [place] capsule 00 (two) Medical times Branch daily. clobetasoL 2022-0 Yes [id number] Apply to [facility] 0.05 % 4-14 area(s) 2 ity of external 00:00: (two) [place] solution 00 times Medical daily. Branch doxycycline 2022-0 Yes [id number] 100mg Take 1 [facility] monohydrate 4-14 capsule by it y of 100 mg 00:00: mouth 2 [place] capsule 00 (two) Medical times Branch daily. clobetasoL 2022-0 Yes [id number] Apply to [facility] 0.05 % 4-14 area(s) 2 ity of external 00:00: (two) [place] solution 00 times Medical daily. Branch doxycycline 2022-0 Yes [id number] 100mg Take 1 [facility] monohydrate 4-14 capsule by it y of 100 mg 00:00: mouth 2 [place] capsule 00 (two) Medical times Branch daily. clobetasoL 2022-0 Yes [id number] Apply to [facility] 0.05 % 4-14 area(s) 2 ity of external 00:00: (two) [place] solution 00 times Medical daily. [facility] doxycycline 2022-0 Yes [id number] 100mg Take 1 [facility] monohydrate 4-14 capsule by it y of 100 mg 00:00: mouth 2 [place] capsule 00 (two) Medical times Branch daily. clobetasoL 2022-0 Yes [id number] Apply to [facility] 0.05 % 4-14 area(s) 2 ity of external 00:00: (two) [place] solution 00 times Medical daily. [facility] doxycycline 2022-0 Yes [id number] 100mg Take 1 [facility] monohydrate 4-14 capsule by it y of 100 mg 00:00: mouth 2 [place] capsule 00 (two) Medical times [facility] daily. clobetasoL 2022-0 Yes [id number] Apply to [facility] 0.05 % 4-14 area(s) 2 ity of external 00:00: (two) [place] solution 00 times Medical daily. [facility] doxycycline 2022-0 Yes [id number] 100mg Take 1 [facility] monohydrate 4-14 capsule by it y of 100 mg 00:00: mouth 2 [place] capsule 00 (two) Medical times [facility] daily. clobetasoL 2022-0 Yes [id number] Apply to [facility] 0.05 % 4-14 area(s) 2 ity of external 00:00: (two) [place] solution 00 times Medical daily. Branch doxycycline 2022-0 Yes [id number] 100mg Take 1 [facility] monohydrate 4-14 capsule by it y of 100 mg 00:00: mouth 2 [place] capsule 00 (two) Medical times Branch daily. clobetasoL 2022-0 Yes [id number] Apply to [facility] 0.05 % 4-14 area(s) 2 ity of external 00:00: (two) [place] solution 00 times Medical daily. Branch doxycycline 2022-0 Yes [id number] 100mg Take 1 [facility] monohydrate 4-14 capsule by it y of 100 mg 00:00: mouth 2 [place] capsule 00 (two) Medical times Branch daily. clobetasoL 2022-0 Yes [id number] Apply to [facility] 0.05 % 4-14 area(s) 2 ity of external 00:00: (two) [place] solution 00 times Medical daily. Branch doxycycline 2022-0 Yes [id number] 100mg Take 1 [facility] monohydrate 4-14 capsule by it y of 100 mg 00:00: mouth 2 [place] capsule 00 (two) Medical times Branch daily. clobetasoL 2022-0 Yes [id number] Apply to [facility] 0.05 % 4-14 area(s) 2 ity of external 00:00: (two) [place] solution 00 times Medical daily. Branch doxycycline 2-0 Yes [id number] 100mg Take 1 [facility] monohydrate 4-14 capsule by it y of 100 mg 00:00: mouth 2 [place] capsule 00 (two) Medical times Branch daily. clobetasoL 2022-0 Yes [id number] Apply to [facility] 0.05 % 4-14 area(s) 2 ity of external 00:00: (two) [place] solution 00 times Medical daily. Branch doxycycline 2022-0 Yes [id number] 100mg Take 1 [facility] monohydrate 4-14 capsule by it y of 100 mg 00:00: mouth 2 [place] capsule 00 (two) Medical times Branch daily. clobetasoL 2022-0 Yes [id number] Apply to [facility] 0.05 % 4-14 area(s) 2 ity of external 00:00: (two) [place] solution 00 times Medical daily. Branch doxycycline 2022-0 Yes [id number] 100mg Take 1 [facility] monohydrate 4-14 capsule by it y of 100 mg 00:00: mouth 2 [place] capsule 00 (two) Medical times Branch daily. clobetasoL 2022-0 Yes [id number] Apply to [facility] 0.05 % 4-14 area(s) 2 ity of external 00:00: (two) [place] solution 00 times Medical daily. Branch doxycycline 2022-0 Yes [id number] 100mg Take 1 [facility] monohydrate 4-14 capsule by it y of 100 mg 00:00: mouth 2 [place] capsule 00 (two) Medical times Branch daily. clobetasoL 2022-0 Yes [id number] Apply to [facility] 0.05 % 4-14 area(s) 2 ity of external 00:00: (two) [place] solution 00 times Medical daily. Branch doxycycline 2022-0 Yes [id number] 100mg Take 1 [facility] monohydrate 4-14 capsule by it y of 100 mg 00:00: mouth 2 [place] capsule 00 (two) Medical times Branch daily. clobetasoL 2022-0 Yes [id number] Apply to [facility] 0.05 % 4-14 area(s) 2 ity of external 00:00: (two) [place] solution 00 times Medical daily. Branch doxycycline 2022-0 Yes [id number] 100mg Take 1 [facility] monohydrate 4-14 capsule by it y of 100 mg 00:00: mouth 2 [place] capsule 00 (two) Medical times Branch daily. clobetasoL 2022-0 Yes [id number] Apply to [facility] 0.05 % 4-14 area(s) 2 ity of external 00:00: (two) [place] solution 00 times Medical daily. Branch doxycycline 2022-0 Yes [id number] 100mg Take 1 [facility] monohydrate 4-14 capsule by it y of 100 mg 00:00: mouth 2 [place] capsule 00 (two) Medical times Branch daily. clobetasoL 2022-0 Yes [id number] Apply to [facility] 0.05 % 4-14 area(s) 2 ity of external 00:00: (two) [place] solution 00 times Medical daily. Branch doxycycline 2022-0 Yes [id number] 100mg Take 1 [facility] monohydrate 4-14 capsule by it y of 100 mg 00:00: mouth 2 [place] capsule 00 (two) Medical times Branch daily. clobetasoL 2022-0 Yes [id number] Apply to [facility] 0.05 % 4-14 area(s) 2 ity of external 00:00: (two) [place] solution 00 times Medical daily. Branch doxycycline 2022-0 Yes [id number] 100mg Take 1 [facility] monohydrate 4-14 capsule by it y of 100 mg 00:00: mouth 2 [place] capsule 00 (two) Medical times Branch daily. clobetasoL 2022-0 Yes [id number] Apply to [facility] 0.05 % 4-14 area(s) 2 ity of external 00:00: (two) [place] solution 00 times Medical daily. Branch doxycycline 2022-0 Yes [id number] 100mg Take 1 [facility] monohydrate 4-14 capsule by it y of 100 mg 00:00: mouth 2 [place] capsule 00 (two) Medical times Branch daily. clobetasoL 2022-0 Yes [id number] Apply to [facility] 0.05 % 4-14 area(s) 2 ity of external 00:00: (two) [place] solution 00 times Medical daily. Branch doxycycline 2022-0 Yes [id number] 100mg Take 1 [facility] monohydrate 4-14 capsule by it y of 100 mg 00:00: mouth 2 [place] capsule 00 (two) Medical times Branch daily. clobetasoL 2022-0 Yes [id number] Apply to [facility] 0.05 % 4-14 area(s) 2 ity of external 00:00: (two) [place] solution 00 times Medical daily. Branch doxycycline 2022-0 Yes [id number] 100mg Take 1 [facility] monohydrate 4-14 capsule by it y of 100 mg 00:00: mouth 2 [place] capsule 00 (two) Medical times Branch daily. clobetasoL 2022-0 Yes [id number] Apply to [facility] 0.05 % 4-14 area(s) 2 ity of external 00:00: (two) [place] solution 00 times Medical daily. Branch doxycycline 2022-0 Yes [id number] 100mg Take 1 [facility] monohydrate 4-14 capsule by it y of 100 mg 00:00: mouth 2 [place] capsule 00 (two) Medical times Branch daily. clobetasoL 2022-0 Yes [id number] Apply to [facility] 0.05 % 4-14 area(s) 2 ity of external 00:00: (two) [place] solution 00 times Medical daily. Branch doxycycline 2022-0 Yes [id number] 100mg Take 1 [facility] monohydrate 4-14 capsule by it y of 100 mg 00:00: mouth 2 [place] capsule 00 (two) Medical times Branch daily. clobetasoL 2022-0 Yes [id number] Apply to [facility] 0.05 % 4-14 area(s) 2 ity of external 00:00: (two) [place] solution 00 times Medical daily. Branch doxycycline 2022-0 Yes [id number] 100mg Take 1 [facility] monohydrate 4-14 capsule by it y of 100 mg 00:00: mouth 2 [place] capsule 00 (two) Medical times Branch daily. clobetasoL 2022-0 Yes [id number] Apply to [facility] 0.05 % 4-14 area(s) 2 ity of external 00:00: (two) [place] solution 00 times Medical daily. Branch doxycycline 2-0 Yes [id number] 100mg Take 1 [facility] monohydrate 4-14 capsule by it y of 100 mg 00:00: mouth 2 [place] capsule 00 (two) Medical times Branch daily. clobetasoL 2022-0 Yes [id number] Apply to [facility] 0.05 % 4-14 area(s) 2 ity of external 00:00: (two) [place] solution 00 times Medical daily. Branch doxycycline 2-0 Yes [id number] 100mg Take 1 [facility] monohydrate 4-14 capsule by it y of 100 mg 00:00: mouth 2 [place] capsule 00 (two) Medical times Branch daily. clobetasoL 2022-0 Yes [id number] Apply to [facility] 0.05 % 4-14 area(s) 2 ity of external 00:00: (two) [place] solution 00 times Medical daily. Branch doxycycline 2021-0 Yes [id number] 100mg Take 1 [facility] monohydrate 4-14 capsule by it y of 100 mg 00:00: mouth 2 [place] capsule 00 (two) Medical times Branch daily. clobetasoL 2022-0 Yes [id number] Apply to [facility] 0.05 % 4-14 area(s) 2 ity of external 00:00: (two) [place] solution 00 times Medical daily. Branch doxycycline 2-0 Yes [id number] 100mg Take 1 [facility] monohydrate 4-14 capsule by it y of 100 mg 00:00: mouth 2 [place] capsule 00 (two) Medical times Branch daily. clobetasoL 2022-0 Yes [id number] Apply to [facility] 0.05 % 4-14 area(s) 2 ity of external 00:00: (two) [place] solution 00 times Medical daily. Branch doxycycline 2022-0 Yes [id number] 100mg Take 1 [facility] monohydrate 4-14 capsule by it y of 100 mg 00:00: mouth 2 [place] capsule 00 (two) Medical times Branch daily. clobetasoL 2022-0 Yes [id number] Apply to [facility] 0.05 % 4-14 area(s) 2 ity of external 00:00: (two) [place] solution 00 times Medical daily. Branch doxycycline 2022-0 Yes [id number] 100mg Take 1 [facility] monohydrate 4-14 capsule by it y of 100 mg 00:00: mouth 2 [place] capsule 00 (two) Medical times Branch daily. clobetasoL 2022-0 Yes [id number] Apply to [facility] 0.05 % 4-14 area(s) 2 ity of external 00:00: (two) [place] solution 00 times Medical daily. Branch doxycycline 2022-0 Yes [id number] 100mg Take 1 [facility] monohydrate 4-14 capsule by it y of 100 mg 00:00: mouth 2 [place] capsule 00 (two) Medical times Branch daily. clobetasoL 2022-0 Yes [id number] Apply to [facility] 0.05 % 4-14 area(s) 2 ity of external 00:00: (two) [place] solution 00 times Medical daily. Branch doxycycline 2-0 Yes [id number] 100mg Take 1 [facility] monohydrate 4-14 capsule by it y of 100 mg 00:00: mouth 2 [place] capsule 00 (two) Medical times Branch daily. clobetasoL 2022-0 Yes [id number] Apply to [facility] 0.05 % 4-14 area(s) 2 ity of external 00:00: (two) [place] solution 00 times Medical daily. Branch doxycycline 2-0 Yes [id number] 100mg Take 1 [facility] monohydrate 4-14 capsule by it y of 100 mg 00:00: mouth 2 [place] capsule 00 (two) Medical times Branch daily. clobetasoL 2022-0 Yes [id number] Apply to [facility] 0.05 % 4-14 area(s) 2 ity of external 00:00: (two) [place] solution 00 times Medical daily. Branch doxycycline 2022-0 Yes [id number] 100mg Take 1 [facility] monohydrate 4-14 capsule by it y of 100 mg 00:00: mouth 2 [place] capsule 00 (two) Medical times Branch daily. clobetasoL 2022-0 Yes [id number] Apply to [facility] 0.05 % 4-14 area(s) 2 ity of external 00:00: (two) [place] solution 00 times Medical daily. Branch doxycycline 2022-0 Yes [id number] 100mg Take 1 [facility] monohydrate 4-14 capsule by it y of 100 mg 00:00: mouth 2 [place] capsule 00 (two) Medical times Branch daily. clobetasoL 2022-0 Yes [id number] Apply to [facility] 0.05 % 4-14 area(s) 2 ity of external 00:00: (two) [place] solution 00 times Medical daily. Branch doxycycline 2-0 Yes [id number] 100mg Take 1 [facility] monohydrate 4-14 capsule by it y of 100 mg 00:00: mouth 2 [place] capsule 00 (two) Medical times Branch daily. clobetasoL 2022-0 Yes [id number] Apply to [facility] 0.05 % 4-14 area(s) 2 ity of external 00:00: (two) [place] solution 00 times Medical daily. Branch doxycycline 2-0 Yes [id number] 100mg Take 1 [facility] monohydrate 4-14 capsule by it y of 100 mg 00:00: mouth 2 [place] capsule 00 (two) Medical times Branch daily. clobetasoL 2022-0 Yes [id number] Apply to [facility] 0.05 % 4-14 area(s) 2 ity of external 00:00: (two) [place] solution 00 times Medical daily. Branch doxycycline 2-0 Yes [id number] 100mg Take 1 [facility] monohydrate 4-14 capsule by it y of 100 mg 00:00: mouth 2 [place] capsule 00 (two) Medical times Branch daily. clobetasoL 2022-0 Yes [id number] Apply to [facility] 0.05 % 4-14 area(s) 2 ity of external 00:00: (two) [place] solution 00 times Medical daily. Branch doxycycline 2022-0 Yes [id number] 100mg Take 1 [facility] monohydrate 4-14 capsule by it y of 100 mg 00:00: mouth 2 [place] capsule 00 (two) Medical times Branch daily. clobetasoL 2022-0 Yes [id number] Apply to [facility] 0.05 % 4-14 area(s) 2 ity of external 00:00: (two) [place] solution 00 times Medical daily. Branch doxycycline 2022-0 Yes [id number] 100mg Take 1 [facility] monohydrate 4-14 capsule by it y of 100 mg 00:00: mouth 2 [place] capsule 00 (two) Medical times Branch daily. clobetasoL 2022-0 Yes [id number] Apply to [facility] 0.05 % 4-14 area(s) 2 ity of external 00:00: (two) [place] solution 00 times Medical daily. Branch doxycycline 2-0 Yes [id number] 100mg Take 1 [facility] monohydrate 4-14 capsule by it y of 100 mg 00:00: mouth 2 [place] capsule 00 (two) Medical times Branch daily. clobetasoL 2022-0 Yes [id number] Apply to [facility] 0.05 % 4-14 area(s) 2 ity of external 00:00: (two) [place] solution 00 times Medical daily. Branch doxycycline 2021-0 Yes [id number] 100mg Take 1 [facility] monohydrate 4-14 capsule by it y of 100 mg 00:00: mouth 2 [place] capsule 00 (two) Medical times Branch daily. clobetasoL 2-0 Yes [id number] Apply to [facility] 0.05 % 4-14 area(s) 2 ity of external 00:00: (two) [place] solution 00 times Medical daily. Branch doxycycline 2021-0 Yes [id number] 100mg Take 1 [facility] monohydrate 4-14 capsule by it y of 100 mg 00:00: mouth 2 [place] capsule 00 (two) Medical times Branch daily. clobetasoL 2022-0 Yes [id number] Apply to [facility] 0.05 % 4-14 area(s) 2 ity of external 00:00: (two) [place] solution 00 times Medical daily. Branch doxycycline 2021-0 Yes [id number] 100mg Take 1 [facility] monohydrate 4-14 capsule by it y of 100 mg 00:00: mouth 2 [place] capsule 00 (two) Medical times Branch daily. clobetasoL 2022-0 Yes [id number] Apply to [facility] 0.05 % 4-14 area(s) 2 ity of external 00:00: (two) [place] solution 00 times Medical daily. Branch doxycycline 2022-0 Yes [id number] 100mg Take 1 [facility] monohydrate 4-14 capsule by it y of 100 mg 00:00: mouth 2 [place] capsule 00 (two) Medical times Branch daily. clobetasoL 2022-0 Yes [id number] Apply to [facility] 0.05 % 4-14 area(s) 2 ity of external 00:00: (two) [place] solution 00 times Medical daily. Branch doxycycline 2021-0 Yes [id number] 100mg Take 1 [facility] monohydrate 4-14 capsule by it y of 100 mg 00:00: mouth 2 [place] capsule 00 (two) Medical times [place] daily. clobetasoL 2022-0 Yes [id number] Apply to [facility] 0.05 % 4-14 area(s) 2 ity of external 00:00: (two) [place] solution 00 times Medical daily. Branch doxycycline 2022-0 Yes [id number] 100mg Take 1 [facility] monohydrate 4-14 capsule by it y of 100 mg 00:00: mouth 2 [place] capsule 00 (two) Medical times [place] daily. clobetasoL 2022-0 Yes [id number] Apply to [facility] 0.05 % 4-14 area(s) 2 ity of external 00:00: (two) [place] solution 00 times Medical daily. Branch doxycycline 2022-0 Yes [id number] 100mg Take 1 [facility] monohydrate 4-14 capsule by it y of 100 mg 00:00: mouth 2 [place] capsule 00 (two) Medical times [place] daily. clobetasoL 2022-0 Yes [id number] Apply to [facility] 0.05 % 4-14 area(s) 2 ity of external 00:00: (two) [place] solution 00 times Medical daily. Branch clobetasoL 2022-0 Yes [id number] Apply to [facility] 0.05 % 4-14 area(s) 2 ity of external 00:00: (two) [place] solution 00 times Medical daily. Branch clobetasoL 2022-0 Yes [id number] Apply to [facility] 0.05 % 4-14 area(s) 2 ity of external 00:00: (two) [place] solution 00 times Medical daily. Branch clobetasoL 2022-0 Yes [id number] Apply to [facility] 0.05 % 4-14 area(s) 2 ity of external 00:00: (two) [place] solution 00 times Medical daily. Branch clobetasoL 2022-0 Yes [id number] Apply to [facility] 0.05 % 4-14 area(s) 2 ity of external 00:00: (two) [place] solution 00 times Medical daily. Branch clobetasoL 2022-0 Yes [id number] Apply to [facility] 0.05 % 4-14 area(s) 2 ity of external 00:00: (two) [place] solution 00 times Medical daily. Branch clobetasoL 2022-0 Yes [id number] Apply to [facility] 0.05 % 4-14 area(s) 2 ity of external 00:00: (two) [place] solution 00 times Medical daily. Branch clobetasoL 2022-0 Yes [id number] Apply to [facility] 0.05 % 4-14 area(s) 2 ity of external 00:00: (two) [place] solution 00 times Medical daily. Branch clobetasoL 2022-0 Yes [id number] Apply to [facility] 0.05 % 4-14 area(s) 2 ity of external 00:00: (two) [place] solution 00 times Medical daily. Branch clobetasoL 2022-0 Yes [id number] Apply to [facility] 0.05 % 4-14 area(s) 2 ity of external 00:00: (two) [place] solution 00 times Medical daily. Branch clobetasoL 2022-0 Yes [id number] Apply to [facility] 0.05 % 4-14 area(s) 2 ity of external 00:00: (two) [place] solution 00 times Medical daily. Branch clobetasoL 2022-0 Yes [id number] Apply to [facility] 0.05 % 4-14 area(s) 2 ity of external 00:00: (two) [place] solution 00 times Medical daily. Branch clobetasoL 2022-0 Yes [id number] Apply to [facility] 0.05 % 4-14 area(s) 2 ity of external 00:00: (two) [place] solution 00 times Medical daily. Branch clobetasoL 2022-0 Yes [id number] Apply to [facility] 0.05 % 4-14 area(s) 2 ity of external 00:00: (two) [place] solution 00 times Medical daily. Branch clobetasoL 2022-0 Yes [id number] Apply to [facility] 0.05 % 4-14 area(s) 2 ity of external 00:00: (two) [place] solution 00 times Medical daily. Branch clobetasoL 2022-0 Yes [id number] Apply to [facility] 0.05 % 4-14 area(s) 2 ity of external 00:00: (two) [place] solution 00 times Medical daily. Branch clobetasoL 2022-0 Yes [id number] Apply to [facility] 0.05 % 4-14 area(s) 2 ity of external 00:00: (two) [place] solution 00 times Medical daily. Branch clobetasoL 2022-0 Yes [id number] Apply to [facility] 0.05 % 4-14 area(s) 2 ity of external 00:00: (two) [place] solution 00 times Medical daily. Branch clobetasoL 2022-0 Yes [id number] Apply to [facility] 0.05 % 4-14 area(s) 2 ity of external 00:00: (two) [place] solution 00 times Medical daily. Branch clobetasoL 2022-0 Yes [id number] Apply to [facility] 0.05 % 4-14 area(s) 2 ity of external 00:00: (two) [place] solution 00 times Medical daily. Branch clobetasoL 2022-0 Yes [id number] Apply to [facility] 0.05 % 4-14 area(s) 2 ity of external 00:00: (two) [place] solution 00 times Medical daily. Branch clobetasoL 2022-0 Yes [id number] Apply to [facility] 0.05 % 4-14 area(s) 2 ity of external 00:00: (two) [place] solution 00 times Medical daily. Branch clobetasoL 2022-0 Yes [id number] Apply to [facility] 0.05 % 4-14 area(s) 2 ity of external 00:00: (two) [place] solution 00 times Medical daily. Branch clobetasoL 2022-0 Yes [id number] Apply to [facility] 0.05 % 4-14 area(s) 2 ity of external 00:00: (two) [place] solution 00 times Medical daily. Branch clobetasoL 2022-0 Yes [id number] Apply to [facility] 0.05 % 4-14 area(s) 2 ity of external 00:00: (two) [place] solution 00 times Medical daily. Branch clobetasoL 2022-0 Yes [id number] Apply to [facility] 0.05 % 4-14 area(s) 2 ity of external 00:00: (two) [place] solution 00 times Medical daily. Branch clobetasoL 2022-0 Yes [id number] Apply to [facility] 0.05 % 4-14 area(s) 2 ity of external 00:00: (two) [place] solution 00 times Medical daily. Branch clobetasoL 2022-0 Yes [id number] Apply to [facility] 0.05 % 4-14 area(s) 2 ity of external 00:00: (two) [place] solution 00 times Medical daily. Branch clobetasoL 2021-0 Yes [id number] Apply to [facility] 0.05 % 4-14 area(s) 2 ity of external 00:00: (two) [place] solution 00 times Medical daily. Branch clobetasoL 2021-0 Yes [id number] Apply to [facility] 0.05 % 4-14 area(s) 2 ity of external 00:00: (two) [place] solution 00 times Medical daily. Branch clobetasoL 2021-0 Yes [id number] Apply to [facility] 0.05 % 4-14 area(s) 2 ity of external 00:00: (two) [place] solution 00 times Medical daily. Branch clobetasoL 2021-0 Yes [id number] Apply to [facility] 0.05 % 4-14 area(s) 2 ity of external 00:00: (two) [place] solution 00 times Medical daily. Branch clobetasoL 2021-0 Yes [id number] Apply to [facility] 0.05 % 4-14 area(s) 2 ity of external 00:00: (two) [place] solution 00 times Medical daily. Branch clobetasoL 2-0 Yes [id number] Apply to [facility] 0.05 % 4-14 area(s) 2 ity of external 00:00: (two) [place] solution 00 times Medical daily. Branch clobetasoL 2021-0 Yes [id number] Apply to [facility] 0.05 % 4-14 area(s) 2 ity of external 00:00: (two) [place] solution 00 times Medical daily. Branch doxycycline 2022- No [id number] 100mg Take 1 [facility] monohydrate 4-14 - capsule by i ty of 100 mg 00:00: 00:00 mouth 2 [place] capsule 00 :00 (two) Medical times Branch daily. ROSUVASTATI 0 Yes [id number] TAKE 1 [facility] N 20 mg 4-04 TABLET BY ity of tablet 00:00: MOUTH AT [place] 00 BEDTIME, Medical STOP Branch TAKING ATORVASTAT IN ROSUVASTATI Yes [id number] TAKE 1 [facility] N 20 mg 4-04 TABLET BY ity of tablet 00:00: MOUTH AT [place] 00 BEDTIME, Medical STOP Branch TAKING ATORVASTAT IN ROSUVASTATI Yes [id number] TAKE 1 [facility] N 20 mg 4-04 TABLET BY ity of tablet 00:00: MOUTH AT [place] 00 BEDTIME, Medical STOP Branch TAKING ATORVASTAT IN ROSUVASTATI 0 2022- No [id number] TAKE 1 [facility] N 20 mg 4-04 08-21 TABLET BY ity of tablet 00:00: 00:00 MOUTH AT [place] 00 :00 BEDTIME, Medical STOP Branch TAKING ATORVASTAT IN ROSUVASTATI 202- No [id number] TAKE 1 [facility] N 20 mg 4-04 08-21 TABLET BY ity of tablet 00:00: 00:00 MOUTH AT [place] 00 :00 BEDTIME, Medical STOP Branch TAKING ATORVASTAT IN dapaglifloz Yes [id number] 10mg Take 1 [facility] in 3-30 tablet by ity of (FARXIGA) 00:00: mouth [place] 10 mg 00 daily. Medical tablet Branch Insulin Yes [id number] Use as [facility] ers Clear, 3-30 directed ity of Disposable, 00:00: to inject [place] (PEN 00 insulin Medical NEEDLE) 31 once Branch gauge x daily; 08/27" Ndle ICD-10 code E11.65 dapaglifloz Yes [id number] 10mg Take 1 [facility] in 3-30 tablet by ity of (FARXIGA) 00:00: mouth [place] 10 mg 00 daily. Medical tablet Branch Insulin Yes [id number] Use as [facility] ers Clear, 3-30 directed ity of Disposable, 00:00: to inject [place] (PEN 00 insulin Medical NEEDLE) 31 once Branch gauge x daily; 08/27" Ndle ICD-10 code E11.65 dapaglifloz Yes [id number] 10mg Take 1 [facility] in 3-30 tablet by ity of (FARXIGA) 00:00: mouth [place] 10 mg 00 daily. Medical tablet Branch Insulin Yes [id number] Use as [facility] ers Clear, 3-30 directed ity of Disposable, 00:00: to inject [place] (PEN 00 insulin Medical NEEDLE) 31 once Branch gauge x daily; 08/27" Ndle ICD-10 code E11.65 dapaglifloz 0 Yes [id number] 10mg Take 1 [facility] in 3-30 tablet by ity of (FARXIGA) 00:00: mouth [place] 10 mg 00 daily. Medical tablet Branch Insulin Yes [id number] Use as [facility] ers Clear, 3 directed ity of Disposable, 00:00: to inject [place] (PEN 00 insulin Medical NEEDLE) 31 once Branch gauge x daily; 08/27" Ndle ICD-10 code E11.65 dapaglifloz Yes [id number] 10mg Take 1 [facility] in 3-30 tablet by ity of (XIGA) 00:00: mouth [place] 10 mg 00 daily. Medical tablet Branch Insulin Yes [id number] Use as [facility] ers Clear, 3 directed ity of Disposable, 00:00: to inject [place] (PEN 00 insulin Medical NEEDLE) 31 once Branch gauge x daily; 08/27" Ndle ICD-10 code E11.65 dapaglifloz 2021- No [id number] 10mg Take 1 [facility] in -30 - tablet by ity of (XIGA) 00:00: 00:00 mouth [place] 10 mg 00 :00 daily. Medical tablet Branch Insulin 2021- No [id number] Use as [facility] vers Clear, 07-11 directed ity of Disposable, 00:00: 00:00 to inject [place] (PEN 00 :00 insulin Medical NEEDLE) 31 once Branch gauge x daily; 08/27" Ndle ICD-10 code E11.65 dapaglifloz 0 2022- No [id number] 10mg Take 1 [facility] in 30 -16 tablet by ity of (XIGA) 00:00: 00:00 mouth [place] 10 mg 00 :00 daily. Medical tablet Branch Insulin 2021- No [id number] Use as [facility] vers Clear, 07-11 directed ity of Disposable, 00:00: 00:00 to inject [place] (PEN 00 :00 insulin Medical NEEDLE) 31 once Branch gauge x daily; 08/27" N[place] ICD-10 code E11.65 blood sugar Yes [id number] Check U nivers diagnostic 3-25 glucose ity of (ACCU-CHEK 00:00: once daily [place] KWESI PLUS 00 before Medical TEST STRP) breakfast; Bra nch strip ICD-10 E11.65 coenzyme 0 Yes [id number] 100mg Take 1 [facility] n[facility] Q10 3-25 capsule by ity of (COQ-10) 00:00: mouth [place] 100 mg 00 daily. Medical softgel Branch Insulin 0 Yes [id number] Use as [facility] ers Clear, 3-25 directed ity of Disposable, 00:00: once daily [place] (RELION PEN 00 to inject Med ical NEEDLES) 32 insulin; Bran ch gauge x E11.65 " Ndle RESTASIS 0 Yes [facility] 0.05 % 3-25 ity of ophthalmic 00:00: [place] drops 00 Medical Branch blood sugar Yes [id number] Check U nivers diagnostic 3-25 glucose ity of (ACCU-CHEK 00:00: once daily [place] KWESI PLUS 00 before Medical TEST STRP) breakfast; Bra nch strip ICD-10 E11.65 coenzyme 0 Yes [id number] 100mg Take 1 U nivers Q10 3-25 capsule by ity of (COQ-10) 00:00: mouth [place] 100 mg 00 daily. Medical softgel Branch Insulin Yes [id number] Use as [facility] ers Clear, 3-25 directed ity of Disposable, 00:00: once daily [place] (RELION PEN 00 to inject Med ical NEEDLES) 32 insulin; Bran ch gauge x E11.65 " Ndle RESTASIS 0 Yes [facility] 0.05 % 3-25 ity of ophthalmic 00:00: [place] drops 00 Medical Branch blood sugar 0 Yes [id number] Check U nivers diagnostic 3-25 glucose ity of (ACCU-CHEK 00:00: once daily [place] KWESI PLUS 00 before Medical TEST STRP) breakfast; Bra nch strip ICD-10 E11.65 coenzyme 0 Yes [id number] 100mg Take 1 [facility] nivers Q10 3-25 capsule by ity of (COQ-10) 00:00: mouth [place] 100 mg 00 daily. Medical softgel Branch Insulin 0 Yes [id number] Use as [facility] ers Clear, 3-25 directed ity of Disposable, 00:00: once daily [place] (RELION PEN 00 to inject Med ical NEEDLES) 32 insulin; Bran ch gauge x E11.65 32" Ndle RESTASIS 0 Yes [facility] 0.05 % 3-25 ity of ophthalmic 00:00: [place] drops 00 Medical Branch blood sugar 0 Yes [id number] Check U nivers diagnostic 3-25 glucose ity of (ACCU-CHEK 00:00: once daily [place] KWESI PLUS 00 before Medical TEST STRP) breakfast; Bra nch strip ICD-10 E11.65 coenzyme 0 Yes [id number] 100mg Take 1 [facility] nivers Q10 3-25 capsule by ity of (COQ-10) 00:00: mouth [place] 100 mg 00 daily. Medical softgel Branch Insulin 0 Yes [id number] Use as [facility] ers Clear, 3-25 directed ity of Disposable, 00:00: once daily [place] (RELION PEN 00 to inject Med ical NEEDLES) 32 insulin; Bran ch gauge x E11.65 " Ndle RESTASIS 0 Yes [facility] 0.05 % 3-25 ity of ophthalmic 00:00: [place] drops 00 Medical Branch blood sugar 0 Yes [id number] Check U nivers diagnostic 3-25 glucose ity of (ACCU-CHEK 00:00: once daily [place] KWESI PLUS 00 before Medical TEST STRP) breakfast; Bra nch strip ICD-10 E11.65 coenzyme 0 Yes [id number] 100mg Take 1 [facility] nivers Q10 3-25 capsule by ity of (COQ-10) 00:00: mouth [place] 100 mg 00 daily. Medical softgel Branch Insulin 0 Yes [id number] Use as [facility] ers Clear, 3-25 directed ity of Disposable, 00:00: once daily [place] (RELION PEN 00 to inject Med ical NEEDLES) 32 insulin; Bran ch gauge x E11.65 532" Ndle RESTASIS 0 Yes [facility] 0.05 % 3-25 ity of ophthalmic 00:00: [place] drops 00 Medical Branch blood sugar 0 Yes [id number] Check U nivers diagnostic 3-25 glucose ity of (ACCU-CHEK 00:00: once daily [place] KWESI PLUS 00 before Medical TEST STRP) breakfast; Bra nch strip ICD-10 E11.65 coenzyme 0 Yes [id number] 100mg Take 1 [facility] nivers Q10 3-25 capsule by ity of (COQ-10) 00:00: mouth [place] 100 mg 00 daily. Medical softgel Branch Insulin Yes [id number] Use as [facility] ers Clear, 3-25 directed ity of Disposable, 00:00: once daily [place] (RELION PEN 00 to inject Med ical NEEDLES) 32 insulin; Bran ch gauge x E11.65 5/32" Ndle RESTASIS 0 Yes [facility] 0.05 % 3-25 [facility] 00:00: [place] drops 00 [facility] blood sugar Yes [id number] Check [facility] nivers diagnostic 3-25 glucose ity of (ACCU-CHEK 00:00: [place] KWESI PLUS 00 before Medical TEST STRP) breakfast; Bra nch strip ICD-10 E11.65 coenzyme Yes [id number] 100mg Take 1 [facility]ivers Q10 3-25 capsule by ity of (COQ-10) 00:00: mouth [place] 100 mg 00 daily. Medical softgel Branch Insulin Yes [id number] Use as [facility] ers Clear, 3-25 directed ity of Disposable, 00:00: once daily [place] (RELION PEN 00 to inject Med ical NEEDLES) 32 insulin; Bran ch gauge x E11.65 /32" Ndle RESTASIS 0 Yes [facility] 0.05 % 3-25 [facility] ophthalmic 00:00: [place] drops 00 [facility] blood sugar 0 Yes [id number] Check [facility] nivers diagnostic 3-25 glucose ity of (ACCU-CHEK 00:00: [place] daily [place] KWESI PLUS 00 before Medical TEST STRP) breakfast; Bra nch strip ICD-10 E11.65 coenzyme 0 Yes [id number] 100mg Take 1 [facility] Q10 3-25 capsule by ity of (COQ-10) 00:00: mouth [place] 100 mg 00 daily. Medical softgel Branch Insulin Yes [id number] Use as [facility] ers Clear, 3-25 directed ity of Disposable, 00:00: once daily [place] (RELION PEN 00 to inject Med ical NEEDLES) 32 insulin; Bran ch gauge x E11.65 5/32" Ndle RESTASIS 0 Yes [facility] 0.05 % 3-25 [facility] ophthalmic 00:00: [place] drops 00 [facility] blood sugar 0 Yes [id number] Check [facility] nivers diagnostic 3-25 glucose ity of (ACCU-CHEK 00:00: once daily [place] KWESI PLUS 00 before Medical TEST STRP) breakfast; Bra nch strip ICD-10 E11.65 coenzyme 0 Yes [id number] 100mg Take 1 [facility]ivers Q10 3-25 capsule by ity of (COQ-10) 00:00: mouth [place] 100 mg 00 daily. Medical softgel Branch Insulin Yes [id number] Use as [facility] ers Clear, 3-25 directed ity of Disposable, 00:00: once daily [place] (RELION PEN 00 to inject Med ical NEEDLES) 32 insulin; Bran ch gauge x E11.65 32" Ndle RESTASIS 0 Yes [facility] 0.05 % 3-25 [facility] ophthalmic 00:00: [place] drops 00 [facility] blood sugar Yes [id number] Check [facility] nivers diagnostic 3-25 glucose ity of (ACCU-CHEK 00:00: once daily [place] KWESI PLUS 00 before Medical TEST STRP) breakfast; Bra nch strip ICD-10 E11.65 coenzyme 0 Yes [id number] 100mg Take 1 [facility]ivers Q10 3-25 capsule by ity of (COQ-10) 00:00: mouth [place] 100 mg 00 daily. Medical softgel Branch Insulin Yes [id number] Use as [facility] ers Clear, 3-25 directed ity of Disposable, 00:00: once daily [place] (RELION PEN 00 to inject Med ical NEEDLES) 32 insulin; Bran ch gauge x E11.65 32" Ndle RESTASIS 0 Yes [facility] 0.05 % 3-25 [facility] ophthalmic 00:00: [place] drops 00 [facility] blood sugar 0 Yes [id number] Check [facility] nivers diagnostic 3-25 glucose ity of (ACCU-CHEK 00:00: once daily [place] KWESI PLUS 00 before Medical TEST STRP) breakfast; Bra nch strip ICD-10 E11.65 coenzyme 0 Yes [id number] 100mg Take 1 [facility]ivers Q10 3-25 capsule by ity of (COQ-10) 00:00: mouth [place] 100 mg 00 daily. Medical softgel Branch Insulin Yes [id number] Use as [facility] ers Clear, 3-25 directed ity of Disposable, 00:00: once daily [place] (RELION PEN 00 to inject Med ical NEEDLES) 32 insulin; Bran ch gauge x E11.65 5/32" Ndle RESTASIS 0 Yes [facility] 0.05 % 3-25 [facility] ophthalmic 00:00: [place] drops 00 [facility] blood sugar Yes [id number] Check [facility] nivers diagnostic 3-25 glucose ity of (ACCU-CHEK 00:00: once daily [place] KWESI PLUS 00 before Medical TEST STRP) breakfast; Bra nch strip ICD-10 E11.65 coenzyme Yes [id number] 100mg Take 1 [facility] Q10 3-25 capsule by ity of (COQ-10) 00:00: mouth [place] 100 mg 00 daily. Medical softgel Branch Insulin Yes [id number] Use as [facility] ers Clear, 3-25 directed ity of Disposable, 00:00: once daily [place] (RELION PEN 00 to inject Med ical NEEDLES) 32 insulin; Bran ch gauge x E11.65 32" Ndle RESTASIS 0 Yes [facility] 0.05 % 3-25 [facility] ophthalmic 00:00: [place] drops 00 [facility] blood sugar Yes [id number] Check [facility] nivers diagnostic 3-25 glucose ity of (ACCU-CHEK 00:00: once daily [place] KWESI PLUS 00 before Medical TEST STRP) breakfast; Bra nch strip ICD-10 E11.65 coenzyme 0 Yes [id number] 100mg Take 1 [facility]ivers Q10 3-25 capsule by ity of (COQ-10) 00:00: mouth [place] 100 mg 00 daily. Medical softgel Branch Insulin Yes [id number] Use as [facility] ers Clear, 3-25 directed ity of Disposable, 00:00: once daily [place] (RELION PEN 00 to inject Med ical NEEDLES) 32 insulin; Bran ch gauge x E11.65 5/32" Ndle RESTASIS 0 Yes [facility] 0.05 % 3-25 [facility] ophthalmic 00:00: [place] drops 00 [facility] blood sugar Yes [id number] Check [facility] nivers diagnostic 3-25 glucose ity of (ACCU-CHEK 00:00: once daily [place] KWESI PLUS 00 before Medical TEST STRP) breakfast; Bra nch strip ICD-10 E11.65 coenzyme 0 Yes [id number] 100mg Take 1 [facility] nivers Q10 3-25 capsule by ity of (COQ-10) 00:00: mouth [place] 100 mg 00 daily. Medical softgel Branch Insulin 0 Yes [id number] Use as [facility] ers Clear, 3-25 directed ity of Disposable, 00:00: once daily [place] (RELION PEN 00 to inject Med ical NEEDLES) 32 insulin; Bran ch gauge x E11.65 " Ndle RESTASIS 0 Yes [facility] 0.05 % 3-25 [facility] of ophthalmic 00:00: [place] drops 00 [facility] blood sugar 0 Yes [id number] Check [facility] nivers diagnostic 3-25 glucose ity of (ACCU-CHEK 00:00: once daily [place] KWESI PLUS 00 before Medical TEST STRP) breakfast; Bra nch strip ICD-10 E11.65 coenzyme 0 Yes [id number] 100mg Take 1 [facility] nivers Q10 3-25 capsule by ity of (COQ-10) 00:00: mouth [place] 100 mg 00 daily. Medical softgel Branch Insulin Yes [id number] Use as [facility] ers Clear, 3-25 directed ity of Disposable, 00:00: once daily [place] (RELION PEN 00 to inject Med ical NEEDLES) 32 insulin; Bran ch gauge x E11.65 " Ndle RESTASIS 2021-0 Yes [facility] 0.05 % 3-25 [facility] ophthalmic 00:00: [place] drops 00 [facility] blood sugar 2021-0 Yes [id number] Check [facility] nivers diagnostic 3-25 glucose ity of (ACCU-CHEK 00:00: once daily [place] KWESI PLUS 00 before Medical TEST STRP) breakfast; Bra nch strip ICD-10 E11.65 coenzyme 0 Yes [id number] 100mg Take 1 [facility]ivers Q10 3-25 capsule by ity of (COQ-10) 00:00: mouth [place] 100 mg 00 daily. Medical softgel Branch Insulin 0 Yes [id number] Use as [facility] ers Clear, 3-25 directed ity of Disposable, 00:00: once daily [place] (RELION PEN 00 to inject Med ical NEEDLES) 32 insulin; Bran ch gauge x E11.65 5/32" Ndle RESTASIS 0 Yes [facility] 0.05 % 3-25 [facility] ophthalmic 00:00: [place] drops 00 [facility] blood sugar Yes [id number] Check [facility] nivers diagnostic 3-25 glucose ity of (ACCU-CHEK 00:00: once daily [place] KWESI PLUS 00 before Medical TEST STRP) breakfast; Bra nch strip ICD-10 E11.65 coenzyme Yes [id number] 100mg Take 1 [facility]ivers Q10 3-25 capsule by ity of (COQ-10) 00:00: mouth [place] 100 mg 00 daily. Medical softgel Branch Insulin Yes [id number] Use as [facility] ers Clear, 3-25 directed ity of Disposable, 00:00: once daily [place] (RELION PEN 00 to inject Med ical NEEDLES) 32 insulin; Bran ch gauge x E11.65 " Ndle RESTASIS Yes [facility] 0.05 % 3-25 [facility] of ophthalmic 00:00: [place] drops 00 [facility] blood sugar Yes [id number] Check [facility] n[facility] diagnostic 3-25 glucose ity of (ACCU-CHEK 00:00: once daily [place] KWESI PLUS 00 before Medical TEST STRP) breakfast; Bra nch strip ICD-10 E11.65 coenzyme 0 Yes [id number] 100mg Take 1 [facility]ivers Q10 3-25 capsule by ity of (COQ-10) 00:00: mouth [place] 100 mg 00 daily. Medical softgel Branch Insulin Yes [id number] Use as [facility] ers Clear, 3-25 directed ity of Disposable, 00:00: once daily [place] (RELION PEN 00 to inject Med ical NEEDLES) 32 insulin; Bran ch gauge x E11.65 532" Ndle RESTASIS 0 Yes [facility] 0.05 % 3-25 [facility] ophthalmic 00:00: [place] drops 00 [facility] blood sugar Yes [id number] Check [facility] nivers diagnostic 3-25 glucose ity of (ACCU-CHEK 00:00: once daily [place] KWESI PLUS 00 before Medical TEST STRP) breakfast; Bra nch strip ICD-10 E11.65 coenzyme Yes [id number] 100mg Take 1 [facility]ivers Q10 3-25 capsule by ity of (COQ-10) 00:00: mouth [place] 100 mg 00 daily. Medical softgel Branch Insulin Yes [id number] Use as [facility] ers Clear, 3-25 directed ity of Disposable, 00:00: once daily [place] (RELION PEN 00 to inject Med ical NEEDLES) 32 insulin; Bran ch gauge x E11.65 " Ndle RESTASIS Yes [facility] 0.05 % 3-25 [facility] of ophthalmic 00:00: [place] drops 00 [facility] blood sugar Yes [id number] Check [facility] n[facility] diagnostic 3-25 glucose ity of (ACCU-CHEK 00:00: once daily [place] KWESI PLUS 00 before Medical TEST STRP) breakfast; Bra nch strip ICD-10 E11.65 coenzyme Yes [id number] 100mg Take 1 [facility]ivers Q10 3-25 capsule by ity of (COQ-10) 00:00: mouth [place] 100 mg 00 daily. Medical softgel Branch Insulin Yes [id number] Use as [facility] ers Clear, 3-25 directed ity of Disposable, 00:00: once daily [place] (RELION PEN 00 to inject Med ical NEEDLES) 32 insulin; Bran ch gauge x E11.65 " Ndle RESTASIS Yes [facility] 0.05 % 3-25 [facility] of ophthalmic 00:00: [place] drops 00 [facility] blood sugar Yes [id number] Check [facility] nivers diagnostic 3-25 glucose ity of (ACCU-CHEK 00:00: once daily [place] KWESI PLUS 00 before Medical TEST STRP) breakfast; Bra nch strip ICD-10 E11.65 coenzyme Yes [id number] 100mg Take 1 [facility] nivers Q10 3-25 capsule by ity of (COQ-10) 00:00: mouth [place] 100 mg 00 daily. Medical softgel Branch Insulin Yes [id number] Use as [facility] ers Clear, 3-25 directed ity of Disposable, 00:00: once daily [place] (RELION PEN 00 to inject Med ical NEEDLES) 32 insulin; Bran ch gauge x E11.65 32" Ndle RESTASIS Yes [facility] 0.05 % 3-25 [facility] of ophthalmic 00:00: [place] drops 00 [facility] blood sugar 2021-0 Yes [id number] Check U nivers diagnostic 3-25 glucose ity of (ACCU-CHEK 00:00: once daily [place] KWESI PLUS 00 before Medical TEST STRP) breakfast; Bra nch strip ICD-10 E11.65 coenzyme 2021-0 Yes [id number] 100mg Take 1 [facility] nivers Q10 3-25 capsule by ity of (COQ-10) 00:00: mouth [place] 100 mg 00 daily. Medical softgel Branch Insulin 2021-0 Yes [id number] Use as [facility] ers Clear, 3-25 directed ity of Disposable, 00:00: once daily [place] (RELION PEN 00 to inject Med ical NEEDLES) 32 insulin; Bran ch gauge x E11.65 32" Ndle RESTASIS 0 Yes [facility] 0.05 % 3-25 [facility] of ophthalmic 00:00: [place] drops 00 [facility] blood sugar 0 Yes [id number] Check U nivers diagnostic 3-25 glucose ity of (ACCU-CHEK 00:00: once daily [place] KWESI PLUS 00 before Medical TEST STRP) breakfast; Bra nch strip ICD-10 E11.65 coenzyme 2021-0 Yes [id number] 100mg Take 1 [facility] nivers Q10 3-25 capsule by ity of (COQ-10) 00:00: mouth [place] 100 mg 00 daily. Medical softgel Branch Insulin 2021-0 Yes [id number] Use as [facility] ers Clear, 3-25 directed ity of Disposable, 00:00: once daily [place] (RELION PEN 00 to inject Med ical NEEDLES) 32 insulin; Bran ch gauge x E11.65 5/32" Ndle RESTASIS 0 Yes [facility] 0.05 % 3-25 [facility] of ophthalmic 00:00: [place] drops 00 [facility] blood sugar 0 Yes [id number] Check [facility] nivers diagnostic 3-25 glucose ity of (ACCU-CHEK 00:00: once daily [place] KWESI PLUS 00 before Medical TEST STRP) breakfast; Bra nch strip ICD-10 E11.65 coenzyme 2021-0 Yes [id number] 100mg Take 1 [facility] nivers Q10 3-25 capsule by ity of (COQ-10) 00:00: mouth [place] 100 mg 00 daily. Medical softgel Branch Insulin Yes [id number] Use as [facility] ers Clear, 3-25 directed ity of Disposable, 00:00: once daily [place] (RELION PEN 00 to inject Med ical NEEDLES) 32 insulin; Bran ch gauge x E11.65 5/32" Ndle RESTASIS 0 Yes [facility] 0.05 % 3-25 [facility] of ophthalmic 00:00: [place] drops 00 [facility] blood sugar Yes [id number] Check [facility] nivers diagnostic 3-25 glucose ity of (ACCU-CHEK 00:00: once daily [place] KWESI PLUS 00 before Medical TEST STRP) breakfast; Bra nch strip ICD-10 E11.65 coenzyme Yes [id number] 100mg Take 1 [facility] nivers Q10 3-25 capsule by ity of (COQ-10) 00:00: mouth [place] 100 mg 00 daily. Medical softgel Branch Insulin Yes [id number] Use as [facility] ers Clear, 3-25 directed ity of Disposable, 00:00: once daily [place] (RELION PEN 00 to inject Med ical NEEDLES) 32 insulin; Bran ch gauge x E11.65 32" Ndle RESTASIS 0 Yes [facility] 0.05 % 3-25 [facility] of ophthalmic 00:00: [place] drops 00 [facility] blood sugar 0 Yes [id number] Check U nivers diagnostic 3-25 glucose ity of (ACCU-CHEK 00:00: once daily [place] KWESI PLUS 00 before Medical TEST STRP) breakfast; Bra nch strip ICD-10 E11.65 coenzyme 0 Yes [id number] 100mg Take 1 [facility] nivers Q10 3-25 capsule by ity of (COQ-10) 00:00: mouth [place] 100 mg 00 daily. Medical softgel Branch Insulin Yes [id number] Use as [facility] ers Clear, 3-25 directed ity of Disposable, 00:00: once daily [place] (RELION PEN 00 to inject Med ical NEEDLES) 32 insulin; Bran ch gauge x E11.65 5/32" Ndle RESTASIS 0 Yes [facility] 0.05 % 3-25 [facility] of ophthalmic 00:00: [place] drops 00 [facility] blood sugar 0 Yes [id number] Check U nivers diagnostic 3-25 glucose ity of (ACCU-CHEK 00:00: once daily [place] KWESI PLUS 00 before Medical TEST STRP) breakfast; Bra nch strip ICD-10 E11.65 coenzyme 0 Yes [id number] 100mg Take 1 [facility] nivers Q10 3-25 capsule by ity of (COQ-10) 00:00: mouth [place] 100 mg 00 daily. Medical softgel Branch Insulin Yes [id number] Use as [facility] ers Clear, 3-25 directed ity of Disposable, 00:00: once daily [place] (RELION PEN 00 to inject Med ical NEEDLES) 32 insulin; Bran ch gauge x E11.65 32" Ndle RESTASIS 0 Yes [facility] 0.05 % 3-25 [facility] of ophthalmic 00:00: [place] drops 00 [facility] blood sugar Yes [id number] Check U nivers diagnostic 3-25 glucose ity of (ACCU-CHEK 00:00: once daily [place] KWESI PLUS 00 before Medical TEST STRP) breakfast; Bra nch strip ICD-10 E11.65 coenzyme 0 Yes [id number] 100mg Take 1 [facility] nivers Q10 3-25 capsule by ity of (COQ-10) 00:00: mouth [place] 100 mg 00 daily. Medical softgel Branch Insulin Yes [id number] Use as [facility] ers Clear, 3-25 directed ity of Disposable, 00:00: once daily [place] (RELION PEN 00 to inject Med ical NEEDLES) 32 insulin; Bran ch gauge x E11.65 " Ndle RESTASIS 2021-0 Yes [facility] 0.05 % 3-25 [facility] of ophthalmic 00:00: [place] drops 00 [facility] blood sugar 0 Yes [id number] Check U nivers diagnostic 3-25 glucose ity of (ACCU-CHEK 00:00: once daily [place] KWESI PLUS 00 before Medical TEST STRP) breakfast; Bra nch strip ICD-10 E11.65 coenzyme 0 Yes [id number] 100mg Take 1 [facility] nivers Q10 3-25 capsule by ity of (COQ-10) 00:00: mouth [place] 100 mg 00 daily. Medical softgel Branch Insulin Yes [id number] Use as [facility] ers Clear, 3-25 directed ity of Disposable, 00:00: once daily [place] (RELION PEN 00 to inject Med ical NEEDLES) 32 insulin; Bran ch gauge x E11.65 5/32" Ndle RESTASIS 2021-0 Yes [facility] 0.05 % 3-25 [facility]y of ophthalmic 00:00: [place] drops 00 [facility] blood sugar 0 Yes [id number] Check U nivers diagnostic 3-25 glucose ity of (ACCU-CHEK 00:00: once daily [place] KWESI PLUS 00 before Medical TEST STRP) breakfast; Bra nch strip ICD-10 E11.65 coenzyme 0 Yes [id number] 100mg Take 1 [facility] nivers Q10 3-25 capsule by ity of (COQ-10) 00:00: mouth [place] 100 mg 00 daily. Medical softgel Branch Insulin 0 Yes [id number] Use as [facility] ers Clear, 3-25 directed ity of Disposable, 00:00: once daily [place] (RELION PEN 00 to inject Med ical NEEDLES) 32 insulin; Bran ch gauge x E11.65 5/32" Ndle RESTASIS 0 Yes [facility] 0.05 % 3-25 [facility]y of ophthalmic 00:00: [place] drops 00 [facility] blood sugar 0 Yes [id number] Check U nivers diagnostic 3-25 glucose ity of (ACCU-CHEK 00:00: once daily [place] KWESI PLUS 00 before Medical TEST STRP) breakfast; Bra nch strip ICD-10 E11.65 coenzyme 0 Yes [id number] 100mg Take 1 [facility] nivers Q10 3-25 capsule by ity of (COQ-10) 00:00: mouth [place] 100 mg 00 daily. Medical softgel Branch Insulin 0 Yes [id number] Use as [facility] ers Clear, 3-25 directed ity of Disposable, 00:00: once daily [place] (RELION PEN 00 to inject Med ical NEEDLES) 32 insulin; Bran ch gauge x E11.65 5/32" Ndle RESTASIS 0 Yes [facility] 0.05 % 3-25 [facility]y of ophthalmic 00:00: [place] drops 00 [facility] blood sugar 0 Yes [id number] Check U nivers diagnostic 3-25 glucose ity of (ACCU-CHEK 00:00: once daily [place] KWESI PLUS 00 before Medical TEST STRP) breakfast; Bra nch strip ICD-10 E11.65 coenzyme 0 Yes [id number] 100mg Take 1 [facility] nivers Q10 3-25 capsule by ity of (COQ-10) 00:00: mouth [place] 100 mg 00 daily. Medical softgel Branch Insulin Yes [id number] Use as [facility] ers Clear, 3-25 directed ity of Disposable, 00:00: once daily [place] (RELION PEN 00 to inject Med ical NEEDLES) 32 insulin; Bran ch gauge x E11.65 32" Ndle RESTASIS Yes [facility] 0.05 % 3-25 [facility]y of ophthalmic 00:00: [place] drops 00 [facility] blood sugar Yes [id number] Check [facility] nivers diagnostic 3-25 glucose ity of (ACCU-CHEK 00:00: once daily [place] KWESI PLUS 00 before Medical TEST STRP) breakfast; Bra nch strip ICD-10 E11.65 coenzyme Yes [id number] 100mg Take 1 [facility] nivers Q10 3-25 capsule by ity of (COQ-10) 00:00: mouth [place] 100 mg 00 daily. Medical softgel Branch Insulin Yes [id number] Use as [facility] ers Clear, 3-25 directed ity of Disposable, 00:00: once daily [place] (RELION PEN 00 to inject Med ical NEEDLES) 32 insulin; Bran ch gauge x E11.65 " Ndle RESTASIS Yes [facility] 0.05 % 3-25 [facility]y of ophthalmic 00:00: [place] drops 00 [facility] blood sugar 0 Yes [id number] Check [facility] nivers diagnostic 3-25 glucose ity of (ACCU-CHEK 00:00: once daily [place] KWESI PLUS 00 before Medical TEST STRP) breakfast; Bra nch strip ICD-10 E11.65 coenzyme 0 Yes [id number] 100mg Take 1 [facility] nivers Q10 3-25 capsule by ity of (COQ-10) 00:00: mouth [place] 100 mg 00 daily. Medical softgel Branch Insulin Yes [id number] Use as [facility] ers Clear, 3-25 directed ity of Disposable, 00:00: once daily [place] (RELION PEN 00 to inject Med ical NEEDLES) 32 insulin; Bran ch gauge x E11.65 " Ndle RESTASIS 2022-0 Yes [facility] 0.05 % 3-25 [facility]y of ophthalmic 00:00: [place] drops [facility] blood sugar Yes [id number] Check U nivers diagnostic 3-25 glucose ity of (ACCU-CHEK 00:00: once daily [place] KWESI PLUS 00 before Medical TEST STRP) breakfast; Bra nch strip ICD-10 E11.65 coenzyme 0 Yes [id number] 100mg Take 1 U nivers Q10 3-25 capsule by ity of (COQ-10) 00:00: mouth [place] 100 mg 00 daily. Medical softgel Branch Insulin Yes [id number] Use as [facility] ers Clear, 3-25 directed ity of Disposable, 00:00: once daily [place] (RELION PEN 00 to inject Med ical NEEDLES) 32 insulin; Bran ch gauge x E11.65 " Ndle RESTASIS Yes [facility] 0.05 % 3-25 [facility]y of ophthalmic 00:00: [place] drops [facility] blood sugar Yes [id number] Check [facility] nivers diagnostic 3-25 glucose ity of (ACCU-CHEK 00:00: once daily [place] KWESI PLUS 00 before Medical TEST STRP) breakfast; Bra nch strip ICD-10 E11.65 coenzyme 0 Yes [id number] 100mg Take 1 U nivers Q10 3-25 capsule by ity of (COQ-10) 00:00: mouth [place] 100 mg 00 daily. Medical softgel Branch Insulin Yes [id number] Use as [facility] ers Clear, 3-25 directed ity of Disposable, 00:00: once daily [place] (RELION PEN 00 to inject Med ical NEEDLES) 32 insulin; Bran ch gauge x E11.65 " Ndle RESTASIS 0 Yes [facility] 0.05 % 3-25 [facility]y of ophthalmic 00:00: [place] drops 00 [facility] blood sugar Yes [id number] Check [facility] nivers diagnostic 3-25 glucose ity of (ACCU-CHEK 00:00: once daily [place] KWESI PLUS 00 before Medical TEST STRP) breakfast; Bra nch strip ICD-10 E11.65 coenzyme 0 Yes [id number] 100mg Take 1 U nivers Q10 3-25 capsule by ity of (COQ-10) 00:00: mouth [place] 100 mg 00 daily. Medical softgel Branch Insulin 0 Yes [id number] Use as [facility] ers Clear, 3-25 directed ity of Disposable, 00:00: once daily [place] (RELION PEN 00 to inject Med ical NEEDLES) 32 insulin; Bran ch gauge x E11.65 532" Ndle RESTASIS 0 Yes [facility] 0.05 % 3-25 [facility]y of ophthalmic 00:00: [place] drops 00 [facility] blood sugar 0 Yes [id number] Check [facility] nivers diagnostic 3-25 glucose ity of (ACCU-CHEK 00:00: once daily [place] K[facility]ESI PLUS 00 before Medical TEST STRP) breakfast; Bra nch strip ICD-10 E11.65 coenzyme 0 Yes [id number] 100mg Take 1 U nivers Q10 3-25 capsule by ity of (COQ-10) 00:00: mouth [place] 100 mg 00 daily. Medical softgel Branch Insulin Yes [id number] Use as [facility] ers Clear, 3-25 directed ity of Disposable, 00:00: once daily [place] (RELION PEN 00 to inject Med ical NEEDLES) 32 insulin; Bran ch gauge x E11.65 32" Ndle RESTASIS 0 Yes [facility] 0.05 % 3-25 [facility]y of ophthalmic 00:00: [place] drops 00 [facility] blood sugar 0 Yes [id number] Check [facility] nivers diagnostic 3-25 glucose ity of (ACCU-CHEK 00:00: once daily [place] KWESI PLUS 00 before Medical TEST STRP) breakfast; Bra nch strip ICD-10 E11.65 coenzyme 0 Yes [id number] 100mg Take 1 U nivers Q10 3-25 capsule by ity of (COQ-10) 00:00: mouth [place] 100 mg 00 daily. Medical softgel Branch Insulin 0 Yes [id number] Use as [facility] ers Clear, 3-25 directed ity of Disposable, 00:00: once daily [place] (RELION PEN 00 to inject Med ical NEEDLES) 32 insulin; Bran ch gauge x E11.65 5/32" Ndle RESTASIS 0 Yes [facility] 0.05 % 3-25 [facility]y of ophthalmic 00:00: [place] drops 00 [facility] blood sugar 0 Yes [id number] Check U nivers diagnostic 3-25 glucose ity of (ACCU-CHEK 00:00: once daily [place] KWESI PLUS 00 before Medical TEST STRP) breakfast; Bra nch strip ICD-10 E11.65 coenzyme Yes [id number] 100mg Take 1 U nivers Q10 3-25 capsule by ity of (COQ-10) 00:00: mouth [place] 100 mg 00 daily. Medical softgel Branch Insulin Yes [id number] Use as [facility] ers Clear, 3-25 directed ity of Disposable, 00:00: once daily [place] (RELION PEN 00 to inject Med ical NEEDLES) 32 insulin; Bran ch gauge x E11.65 " Ndle RESTASIS Yes [facility] 0.05 % 3-25 ity of ophthalmic 00:00: [place] drops 00 [facility] blood sugar Yes [id number] Check [facility] nivers diagnostic 3-25 glucose ity of (ACCU-CHEK 00:00: once daily [place] KWESI PLUS 00 before Medical TEST STRP) breakfast; Bra nch strip ICD-10 E11.65 coenzyme Yes [id number] 100mg Take 1 U nivers Q10 3-25 capsule by ity of (COQ-10) 00:00: mouth [place] 100 mg 00 daily. Medical softgel Branch Insulin Yes [id number] Use as [facility] ers Clear, 3-25 directed ity of Disposable, 00:00: once daily [place] (RELION PEN 00 to inject Med ical NEEDLES) 32 insulin; Bran ch gauge x E11.65 " Ndle RESTASIS 0 Yes [facility] 0.05 % 3-25 ity of ophthalmic 00:00: [place] drops 00 [facility] blood sugar Yes [id number] Check [facility] nivers diagnostic 3-25 glucose ity of (ACCU-CHEK 00:00: once daily [place] KWESI PLUS 00 before Medical TEST STRP) breakfast; Bra nch strip ICD-10 E11.65 coenzyme Yes [id number] 100mg Take 1 [facility] nivers Q10 3-25 capsule by ity of (COQ-10) 00:00: mouth [place] 100 mg 00 daily. Medical softgel Branch Insulin Yes [id number] Use as [facility] ers Clear, 3-25 directed ity of Disposable, 00:00: once daily [place] (RELION PEN 00 to inject Med ical NEEDLES) 32 insulin; Bran ch gauge x E11.65 5/32" Ndle RESTASIS 0 Yes [facility] 0.05 % 3-25 ity of ophthalmic 00:00: [place] drops 00 [facility] blood sugar 0 Yes [id number] Check [facility] nivers diagnostic 3-25 glucose ity of (ACCU-CHEK 00:00: once daily [place] KWESI PLUS 00 before Medical TEST STRP) breakfast; Bra nch strip ICD-10 E11.65 coenzyme 0 Yes [id number] 100mg Take 1 U nivers Q10 3-25 capsule by ity of (COQ-10) 00:00: mouth [place] 100 mg 00 daily. Medical softgel Branch Insulin Yes [id number] Use as [facility] ers Clear, 3-25 directed ity of Disposable, 00:00: once daily [place] (RELION PEN 00 to inject Med ical NEEDLES) 32 insulin; Bran ch gauge x E11.65 32" Ndle RESTASIS 0 Yes [facility] 0.05 % 3-25 ity of ophthalmic 00:00: [place] drops 00 [facility] blood sugar Yes [id number] Check U nivers diagnostic 3-25 glucose ity of (ACCU-CHEK 00:00: once daily [place] KWESI PLUS 00 before Medical TEST STRP) breakfast; Bra nch strip ICD-10 E11.65 coenzyme 0 Yes [id number] 100mg Take 1 U nivers Q10 3-25 capsule by ity of (COQ-10) 00:00: mouth [place] 100 mg 00 daily. Medical softgel Branch Insulin 0 Yes [id number] Use as [facility] ers Clear, 3-25 directed ity of Disposable, 00:00: once daily [place] (RELION PEN 00 to inject Med ical NEEDLES) 32 insulin; Bran ch gauge x E11.65 5/32" Ndle RESTASIS 0 Yes [facility] 0.05 % 3-25 ity of ophthalmic 00:00: [place] drops 00 [facility] blood sugar 0 Yes [id number] Check U nivers diagnostic 3-25 glucose ity of (ACCU-CHEK 00:00: once daily [place] KWESI PLUS 00 before Medical TEST STRP) breakfast; Bra nch strip ICD-10 E11.65 coenzyme 2021-0 Yes [id number] 100mg Take 1 U nivers Q10 3-25 capsule by ity of (COQ-10) 00:00: mouth [place] 100 mg 00 daily. Medical softgel Branch Insulin Yes [id number] Use as [facility] ers Clear, 3-25 directed ity of Disposable, 00:00: once daily [place] (RELION PEN 00 to inject Med ical NEEDLES) 32 insulin; Bran ch gauge x E11.65 " Ndle RESTASIS 0 Yes [facility] 0.05 % 3-25 ity of ophthalmic 00:00: [place] drops 00 [facility] coenzyme 0 Yes [id number] 100mg Take 1 U nivers Q10 3-25 capsule by ity of (COQ-10) 00:00: mouth [place] 100 mg 00 daily. Medical softgel Branch Insulin Yes [id number] Use as [facility] ers Clear, 3-25 directed ity of Disposable, 00:00: once daily [place] (RELION PEN 00 to inject Med ical NEEDLES) 32 insulin; Bran ch gauge x E11.65 " Ndle RESTASIS 0 Yes [facility] 0.05 % 3-25 ity of ophthalmic 00:00: [place] drops 00 Medical Branch coenzyme 2021-0 Yes [id number] 100mg Take 1 U nivers Q10 3-25 capsule by ity of (COQ-10) 00:00: mouth [place] 100 mg 00 daily. Medical softgel Branch Insulin Yes [id number] Use as Univ ers Clear, 3-25 directed ity of Disposable, 00:00: once daily [place] (RELION PEN 00 to inject Med ical NEEDLES) 32 insulin; Bran ch gauge x E11.65 " Ndle RESTASIS 0 Yes [facility] 0.05 % 3-25 ity of ophthalmic 00:00: [place] drops 00 [facility] coenzyme 2021-0 Yes [id number] 100mg Take 1 U nivers Q10 3-25 capsule by ity of (COQ-10) 00:00: mouth [place] 100 mg 00 daily. Medical softgel Branch Insulin Yes [id number] Use as Univ ers Clear, 3-25 directed ity of Disposable, 00:00: once daily [place] (RELION PEN 00 to inject Med ical NEEDLES) 32 insulin; Bran ch gauge x E11.65 5/32" Ndle RESTASIS Yes [facility] 0.05 % 3-25 ity of ophthalmic 00:00: [place] drops 00 Medical [facility] coenzyme 0 Yes [id number] 100mg Take 1 U nivers Q10 3-25 capsule by ity of (COQ-10) 00:00: mouth [place] 100 mg 00 daily. Medical softgel Branch Insulin Yes [id number] Use as Univ ers Clear, 3-25 directed ity of Disposable, 00:00: once daily [place] (RELION PEN 00 to inject Med ical NEEDLES) 32 insulin; Bran ch gauge x E11.65 532" Ndle RESTASIS Yes [facility] 0.05 % 3-25 ity of ophthalmic 00:00: [place] drops 00 [facility] coenzyme Yes [id number] 100mg Take 1 U nivers Q10 3-25 capsule by ity of (COQ-10) 00:00: mouth [place] 100 mg 00 daily. Medical softgel Branch Insulin Yes [id number] Use as Univ ers Clear, 3-25 directed ity of Disposable, 00:00: once daily [place] (RELION PEN 00 to inject Med ical NEEDLES) 32 insulin; Bran ch gauge x E11.65 532" Ndle RESTASIS Yes [facility] 0.05 % 3-25 ity of ophthalmic 00:00: [place] drops 00 [facility] coenzyme 0 Yes [id number] 100mg Take 1 U nivers Q10 3-25 capsule by ity of (COQ-10) 00:00: mouth [place] 100 mg 00 daily. Medical softgel Branch Insulin Yes [id number] Use as Univ ers Clear, 3-25 directed ity of Disposable, 00:00: once daily [place] (RELION PEN 00 to inject Med ical NEEDLES) 32 insulin; Bran ch gauge x E11.65 532" Ndle RESTASIS Yes [facility] 0.05 % 3-25 ity of ophthalmic 00:00: [place] drops 00 [facility] coenzyme 0 Yes [id number] 100mg Take 1 U nivers Q10 3-25 capsule by ity of (COQ-10) 00:00: mouth [place] 100 mg 00 daily. Medical softgel Branch Insulin Yes [id number] Use as Univ ers Clear, 3-25 directed ity of Disposable, 00:00: once daily [place] (RELION PEN 00 to inject Med ical NEEDLES) 32 insulin; Bran ch gauge x E11.65 32" Ndle RESTASIS Yes [facility] 0.05 % 3-25 ity of ophthalmic 00:00: [place] drops 00 [facility] coenzyme 0 Yes [id number] 100mg Take 1 U nivers Q10 3-25 capsule by ity of (COQ-10) 00:00: mouth [place] 100 mg 00 daily. Medical softgel Branch Insulin Yes [id number] Use as Univ ers Clear, 3-25 directed ity of Disposable, 00:00: once daily [place] (RELION PEN 00 to inject Med ical NEEDLES) 32 insulin; Bran ch gauge x E11.65 " Ndle RESTASIS Yes [facility] 0.05 % 3-25 ity of ophthalmic 00:00: [place] drops 00 [facility] Branch coenzyme Yes [id number] 100mg Take 1 U nivers Q10 3-25 capsule by ity of (COQ-10) 00:00: mouth [place] 100 mg 00 daily. Medical softgel Branch Insulin Yes [id number] Use as Univ ers Clear, 3-25 directed ity of Disposable, 00:00: once daily [place] (RELION PEN 00 to inject Med ical NEEDLES) 32 insulin; Bran ch gauge x E11.65 " Ndle RESTASIS Yes [facility] 0.05 % 3-25 ity of ophthalmic 00:00: [place] drops 00 [facility] Branch coenzyme Yes [id number] 100mg Take 1 U nivers Q10 3-25 capsule by ity of (COQ-10) 00:00: mouth [place] 100 mg 00 daily. Medical softgel Branch Insulin Yes [id number] Use as [facility] ers Clear, 3-25 directed ity of Disposable, 00:00: once daily [place] (RELION PEN 00 to inject Med ical NEEDLES) 32 insulin; Bran ch gauge x E11.65 32" Ndle RESTASIS 0 Yes [facility] 0.05 % 3-25 ity of ophthalmic 00:00: [place] drops 00 [facility] coenzyme Yes [id number] 100mg Take 1 U nivers Q10 3-25 capsule by ity of (COQ-10) 00:00: mouth [place] 100 mg 00 daily. Medical softgel Branch Insulin 2021-0 Yes [id number] Use as Univ ers Clear, 3-25 directed ity of Disposable, 00:00: once daily [place] (RELION PEN 00 to inject Med ical NEEDLES) 32 insulin; Bran ch gauge x E11.65 5/32" Ndle RESTASIS 2021-0 Yes [facility] 0.05 % 3-25 ity of ophthalmic 00:00: [place] drops 00 Medical [facility] coenzyme 2021-0 Yes [id number] 100mg Take 1 U nivers Q10 3-25 capsule by ity of (COQ-10) 00:00: mouth [place] 100 mg 00 daily. Medical softgel Branch Insulin 0 Yes [id number] Use as Univ ers Clear, 3-25 directed ity of Disposable, 00:00: once daily [place] (RELION PEN 00 to inject Med ical NEEDLES) 32 insulin; Bran ch gauge x E11.65 5/32" Ndle RESTASIS 0 Yes [facility] 0.05 % 3-25 ity of ophthalmic 00:00: [place] drops 00 [facility] Branch coenzyme 2021-0 Yes [id number] 100mg Take 1 U nivers Q10 3-25 capsule by ity of (COQ-10) 00:00: mouth [place] 100 mg 00 daily. Medical softgel Branch RESTASIS 0 Yes [facility] 0.05 % 3-25 ity of ophthalmic 00:00: [place] drops 00 [facility] coenzyme 2021-0 Yes [id number] 100mg Take 1 U nivers Q10 3-25 capsule by ity of (COQ-10) 00:00: mouth [place] 100 mg 00 daily. Medical softgel Branch RESTASIS 0 Yes [facility] 0.05 % 3-25 ity of ophthalmic 00:00: [place] drops 00 [facility] coenzyme 2021-0 Yes [id number] 100mg Take 1 U nivers Q10 3-25 capsule by ity of (COQ-10) 00:00: mouth [place] 100 mg 00 daily. Medical softgel Branch RESTASIS 2021-0 Yes [facility] 0.05 % 3-25 ity of ophthalmic 00:00: [place] drops 00 [facility] coenzyme 2021-0 Yes [id number] 100mg Take 1 U nivers Q10 3-25 capsule by ity of (COQ-10) 00:00: mouth [place] 100 mg 00 daily. Medical softgel Branch RESTASIS 2021-0 Yes [facility] 0.05 % 3-25 ity of ophthalmic 00:00: [place] drops 00 [facility] coenzyme 2-0 Yes [id number] 100mg Take 1 U nivers Q10 3-25 capsule by ity of (COQ-10) 00:00: mouth [place] 100 mg 00 daily. Medical softgel Branch RESTASIS 2021-0 Yes [facility] 0.05 % 3-25 ity of ophthalmic 00:00: [place] drops 00 [facility] coenzyme 2021-0 Yes [id number] 100mg Take 1 U nivers Q10 3-25 capsule by ity of (COQ-10) 00:00: mouth [place] 100 mg 00 daily. Medical softgel Branch RESTASIS 2021-0 Yes [facility] 0.05 % 3-25 ity of ophthalmic 00:00: [place] drops 00 [facility] coenzyme 2021-0 Yes [id number] 100mg Take 1 U nivers Q10 3-25 capsule by ity of (COQ-10) 00:00: mouth [place] 100 mg 00 daily. Medical softgel Branch RESTASIS 2021-0 Yes [facility] 0.05 % 3-25 ity of ophthalmic 00:00: [place] drops 00 [facility] Branch coenzyme 2021-0 Yes [id number] 100mg Take 1 U nivers Q10 3-25 capsule by ity of (COQ-10) 00:00: mouth [place] 100 mg 00 daily. Medical softgel Branch RESTASIS 2021-0 Yes [facility] 0.05 % 3-25 ity of ophthalmic 00:00: [place] drops 00 [facility] coenzyme 2-0 Yes [id number] 100mg Take 1 U nivers Q10 3-25 capsule by ity of (COQ-10) 00:00: mouth [place] 100 mg 00 daily. Medical softgel Branch RESTASIS 2021-0 Yes [facility] 0.05 % 3-25 ity of ophthalmic 00:00: [place] drops 00 [facility] coenzyme 2-0 Yes [id number] 100mg Take 1 U nivers Q10 3-25 capsule by ity of (COQ-10) 00:00: mouth [place] 100 mg 00 daily. Medical softgel Branch RESTASIS 2021-0 Yes [facility] 0.05 % 3-25 ity of ophthalmic 00:00: [place] drops 00 [facility] coenzyme 2-0 Yes [id number] 100mg Take 1 U nivers Q10 3-25 capsule by ity of (COQ-10) 00:00: mouth [place] 100 mg 00 daily. Medical softgel Branch RESTASIS 2021-0 Yes [facility] 0.05 % 3-25 ity of ophthalmic 00:00: [place] drops 00 [facility] coenzyme 2-0 Yes [id number] 100mg Take 1 U nivers Q10 3-25 capsule by ity of (COQ-10) 00:00: mouth [place] 100 mg 00 daily. Medical softgel Branch RESTASIS 2021-0 Yes [facility] 0.05 % 3-25 ity of ophthalmic 00:00: [place] drops 00 [facility] coenzyme 2021-0 Yes [id number] 100mg Take 1 U nivers Q10 3-25 capsule by ity of (COQ-10) 00:00: mouth [place] 100 mg 00 daily. Medical softgel Branch RESTASIS 2021-0 Yes [facility] 0.05 % 3-25 ity of ophthalmic 00:00: [place] drops 00 [facility] Branch coenzyme 2021-0 Yes [id number] 100mg Take 1 U nivers Q10 3-25 capsule by ity of (COQ-10) 00:00: mouth [place] 100 mg 00 daily. Medical softgel Branch RESTASIS 2021-0 Yes [facility] 0.05 % 3-25 ity of ophthalmic 00:00: [place] drops 00 [facility] Branch coenzyme 2-0 Yes [id number] 100mg Take 1 U nivers Q10 3-25 capsule by ity of (COQ-10) 00:00: mouth [place] 100 mg 00 daily. Medical softgel Branch RESTASIS 2021-0 Yes [facility] 0.05 % 3-25 ity of ophthalmic 00:00: [place] drops 00 Medical Branch coenzyme 2-0 Yes [id number] 100mg Take 1 U nivers Q10 3-25 capsule by ity of (COQ-10) 00:00: mouth [place] 100 mg 00 daily. Medical softgel Branch RESTASIS 2021-0 Yes [facility] 0.05 % 3-25 ity of ophthalmic 00:00: [place] drops 00 Medical Branch coenzyme 2-0 Yes [id number] 100mg Take 1 U nivers Q10 3-25 capsule by ity of (COQ-10) 00:00: mouth [place] 100 mg 00 daily. Medical softgel Branch RESTASIS 2021-0 Yes [facility] 0.05 % 3-25 ity of ophthalmic 00:00: [place] drops 00 [facility] coenzyme 2-0 Yes [id number] 100mg Take 1 U nivers Q10 3-25 capsule by ity of (COQ-10) 00:00: mouth [place] 100 mg 00 daily. Medical softgel Branch RESTASIS 2021-0 Yes [facility] 0.05 % 3-25 ity of ophthalmic 00:00: [place] drops 00 [facility] Branch coenzyme 2-0 Yes [id number] 100mg Take 1 U nivers Q10 3-25 capsule by ity of (COQ-10) 00:00: mouth [place] 100 mg 00 daily. Medical softgel Branch RESTASIS 2021-0 Yes [facility] 0.05 % 3-25 ity of ophthalmic 00:00: [place] drops 00 [facility] coenzyme 2-0 Yes [id number] 100mg Take 1 U nivers Q10 3-25 capsule by ity of (COQ-10) 00:00: mouth [place] 100 mg 00 daily. Medical softgel Branch RESTASIS 2021-0 Yes [facility] 0.05 % 3-25 ity of ophthalmic 00:00: [place] drops 00 Medical [facility] coenzyme 2021-0 Yes [id number] 100mg Take 1 U nivers Q10 3-25 capsule by ity of (COQ-10) 00:00: mouth [place] 100 mg 00 daily. Medical softgel Branch RESTASIS 2021-0 Yes [facility] 0.05 % 3-25 ity of ophthalmic 00:00: [place] drops 00 [facility] Branch coenzyme 2-0 Yes [id number] 100mg Take 1 U nivers Q10 3-25 capsule by ity of (COQ-10) 00:00: mouth [place] 100 mg 00 daily. Medical softgel Branch RESTASIS 2021-0 Yes [facility] 0.05 % 3-25 ity of ophthalmic 00:00: [place] drops 00 Medical Branch coenzyme 2-0 Yes [id number] 100mg Take 1 U nivers Q10 3-25 capsule by ity of (COQ-10) 00:00: mouth [place] 100 mg 00 daily. Medical softgel Branch RESTASIS 2021-0 Yes [facility] 0.05 % 3-25 ity of ophthalmic 00:00: [place] drops 00 Medical Branch coenzyme 2-0 Yes [id number] 100mg Take 1 U nivers Q10 3-25 capsule by ity of (COQ-10) 00:00: mouth [place] 100 mg 00 daily. Medical softgel Branch RESTASIS 2021-0 Yes [facility] 0.05 % 3-25 ity of ophthalmic 00:00: [place] drops 00 Medical [facility] coenzyme 2-0 Yes [id number] 100mg Take 1 U nivers Q10 3-25 capsule by ity of (COQ-10) 00:00: mouth [place] 100 mg 00 daily. Medical softgel Branch RESTASIS 2021-0 Yes [facility] 0.05 % 3-25 ity of ophthalmic 00:00: [place] drops 00 Medical Branch coenzyme 2021-0 Yes [id number] 100mg Take 1 U nivers Q10 3-25 capsule by ity of (COQ-10) 00:00: mouth [place] 100 mg 00 daily. Medical softgel Branch RESTASIS 2021-0 Yes [facility] 0.05 % 3-25 ity of ophthalmic 00:00: [place] drops 00 [facility] Branch coenzyme 2021-0 Yes [id number] 100mg Take 1 U nivers Q10 3-25 capsule by ity of (COQ-10) 00:00: mouth [place] 100 mg 00 daily. Medical softgel Branch RESTASIS 2021-0 Yes [facility] 0.05 % 3-25 ity of ophthalmic 00:00: [place] drops 00 [facility] coenzyme 2021-0 Yes [id number] 100mg Take 1 U nivers Q10 3-25 capsule by ity of (COQ-10) 00:00: mouth [place] 100 mg 00 daily. Medical softgel Branch RESTASIS 2021-0 Yes [facility] 0.05 % 3-25 ity of ophthalmic 00:00: [place] drops 00 [facility] Branch coenzyme 2-0 Yes [id number] 100mg Take 1 U nivers Q10 3-25 capsule by ity of (COQ-10) 00:00: mouth [place] 100 mg 00 daily. Medical softgel Branch RESTASIS 2021-0 Yes [facility] 0.05 % 3-25 ity of ophthalmic 00:00: [place] drops 00 Medical Branch coenzyme 2-0 Yes [id number] 100mg Take 1 U nivers Q10 3-25 capsule by ity of (COQ-10) 00:00: mouth [place] 100 mg 00 daily. Medical softgel Branch RESTASIS 2021-0 Yes [facility] 0.05 % 3-25 ity of ophthalmic 00:00: [place] drops 00 [facility] coenzyme 2-0 Yes [id number] 100mg Take 1 U nivers Q10 3-25 capsule by ity of (COQ-10) 00:00: mouth [place] 100 mg 00 daily. Medical softgel Branch RESTASIS 2021-0 Yes [facility] 0.05 % 3-25 ity of ophthalmic 00:00: [place] drops 00 [facility] Branch coenzyme 2-0 Yes [id number] 100mg Take 1 U nivers Q10 3-25 capsule by ity of (COQ-10) 00:00: mouth [place] 100 mg 00 daily. Medical softgel Branch RESTASIS 2021-0 Yes [facility] 0.05 % 3-25 ity of ophthalmic 00:00: [place] drops 00 [facility] coenzyme 2021-0 Yes [id number] 100mg Take 1 U nivers Q10 3-25 capsule by ity of (COQ-10) 00:00: mouth [place] 100 mg 00 daily. Medical softgel Branch RESTASIS 2021-0 Yes [facility] 0.05 % 3-25 ity of ophthalmic 00:00: [place] drops 00 Medical Branch coenzyme 2021-0 Yes [id number] 100mg Take 1 U nivers Q10 3-25 capsule by ity of (COQ-10) 00:00: mouth [place] 100 mg 00 daily. Medical softgel Branch RESTASIS 2021-0 Yes [facility] 0.05 % 3-25 ity of ophthalmic 00:00: [place] drops 00 Medical Branch coenzyme 2-0 Yes [id number] 100mg Take 1 U nivers Q10 3-25 capsule by ity of (COQ-10) 00:00: mouth [place] 100 mg 00 daily. Medical softgel Branch RESTASIS 2021-0 Yes [facility] 0.05 % 3-25 ity of ophthalmic 00:00: [place] drops 00 [facility] coenzyme 2-0 Yes [id number] 100mg Take 1 U nivers Q10 3-25 capsule by ity of (COQ-10) 00:00: mouth [place] 100 mg 00 daily. Medical softgel Branch RESTASIS 2021-0 Yes [facility] 0.05 % 3-25 ity of ophthalmic 00:00: [place] drops 00 Medical Branch coenzyme 2-0 Yes [id number] 100mg Take 1 U nivers Q10 3-25 capsule by ity of (COQ-10) 00:00: mouth [place] 100 mg 00 daily. Medical softgel Branch RESTASIS Yes [facility] 0.05 % 3-25 ity of ophthalmic 00:00: [place] drops 00 Medical Branch coenzyme 2021-0 Yes [id number] 100mg Take 1 U nivers Q10 3-25 capsule by ity of (COQ-10) 00:00: mouth [place] 100 mg 00 daily. Medical softgel Branch RESTASIS 0 Yes [facility] 0.05 % 3-25 ity of ophthalmic 00:00: [place] drops 00 [facility] coenzyme 2021-0 Yes [id number] 100mg Take 1 U nivers Q10 3-25 capsule by ity of (COQ-10) 00:00: mouth [place] 100 mg 00 daily. Medical softgel Branch RESTASIS Yes [facility] 0.05 % 3-25 ity of ophthalmic 00:00: [place] drops 00 Medical Branch coenzyme 2021-0 Yes [id number] 100mg Take 1 U nivers Q10 3-25 capsule by ity of (COQ-10) 00:00: mouth [place] 100 mg 00 daily. Medical softgel Branch RESTASIS Yes [facility] 0.05 % 3-25 ity of ophthalmic 00:00: [place] drops 00 Medical Branch Insulin 3- No [id number] Use as Uni vers Clear, 07-06- directed ity of Disposable, 00:00: 00:00 once daily [place] (RELION PEN 00 :00 to inject Med ical NEEDLES) 32 insulin; Bran ch gauge x E11.65 " Ndle blood sugar 2- No [id number] Check [facility] diagnostic 07-06 12-21 glucose ity o f (ACCU-CHEK 00:00: 00:00 once daily [place] KWESI PLUS 00 :00 before Medical TEST STRP) breakfast; Bra nch strip ICD-10 E11.65 blood sugar 2- No [id number] Check [facility] diagnostic 07-06 12-21 glucose ity o f (ACCU-CHEK 00:00: 00:00 once daily [place] KWESI PLUS 00 :00 before Medical TEST STRP) breakfast; Bra nch strip ICD-10 E11.65 baclofen 5 2021-0 Yes 5mg Take 5 mg [facility] tablet 2-[address] [facility] insulin 2022-0 Yes 7U Inject 7 Method i DETEMIR 2-[address] (Levemir 00:00: [facility] tanesha FlexTouch 00 skin. l U-100 Insuln) 100 unit/mL (3 mL) insulin pen baclofen 5 0 Yes [id number] 5mg Take 1 [facility] mg tablet 2-24 tablet by ity o f 00:00: mouth 3 [place] 00 (three) Medical times Branch daily as needed (muscle pain or spasm). Insulin Yes [id number] 7U inject 7 Un wendy Detemir 2-24 Units ity of (LEVEMIR 00:00: [place] FLEXT[place] skin at Medical U-100 bedtime. Branch INSULN) 100 unit/mL (3 mL) injection baclofen 5 Yes [id number] 5mg Take 1 [facility] mg tablet 2-24 tablet by ity o f 00:00: mouth 3 (three) Medical times Branch daily as needed (muscle pain or spasm). Insulin Yes [id number] 7U inject 7 Un wendy Detemir 2-24 Units ity of (LEVEMIR 00:00: [place] FLEXTOUCH 00 skin at Medical U-100 bedtime. Branch INSULN) 100 unit/mL (3 mL) injection baclofen 5 Yes [id number] 5mg Take 1 [facility] mg tablet 2-24 tablet by ity o f 00:00: mouth 3 (three) Medical times Branch daily as needed (muscle pain or spasm). Insulin Yes [id number] 7U inject 7 Un wendy Detemir 2-24 Units ity of (LEVEMIR 00:00: [place] FLEXTOU[place] 00 skin at Medical U-100 bedtime. Branch INSULN) 100 unit/mL (3 mL) injection baclofen 5 Yes [id number] 5mg Take 1 [facility] mg tablet 2-24 tablet by ity o f 00:00: mouth 3 [place] 00 (three) Medical times Branch daily as needed (muscle pain or spasm). Insulin Yes [id number] 7U inject 7 Un wendy Detemir 2-24 Units ity of (LEVEMIR 00:00: [place] FLEXTOUCH 00 skin at Medical U-100 bedtime. Branch INSULN) 100 unit/mL (3 mL) injection baclofen 5 2021-0 Yes [id number] 5mg Take 1 [facility] mg tablet 2-24 tablet by ity o f 00:00: mouth 3 (three) Medical times Branch daily as needed (muscle pain or spasm). Insulin 0 Yes [id number] 7U inject 7 Un wend[place] Detemir 2-24 Units ity of (LEVEMIR 00:00: [place] FLEXTOU[place] 00 skin at Medical U-100 bedtime. Branch INSULN) 100 unit/mL (3 mL) injection baclofen 5 0 Yes [id number] 5mg Take 1 [facility] mg tablet 2-24 tablet by ity o f 00:00: mouth 3 (three) Medical times [place] daily as needed (muscle pain or spasm). Insulin 0 Yes [id number] 7U inject 7 Un wendy Detemir 2-24 Units ity of (LEVEMIR 00:00: [place] FLEXT[place] 00 skin at Medical U-100 bedtime. Branch INSULN) 100 unit/mL (3 mL) injection Insulin 2021-0 Yes [id number] 7U inject 7 Un wendy Detemir 2-24 Units ity of (LEVEMIR 00:00: [place] FLEXTOUCH 00 skin at Medical U-100 bedtime. Branch INSULN) 100 unit/mL (3 mL) injection Insulin 2021-0 Yes [id number] 7U inject 7 Un wend[place] Detemir 2-24 Units ity of (LEVEMIR 00:00: [place] FLEXTOUCH 00 skin at Medical U-100 bedtime. Branch INSULN) 100 unit/mL (3 mL) injection Insulin 2021-0 Yes [id number] 7U inject 7 Un wendy Detemir 2-24 Units ity of (LEVEMIR 00:00: [place] FLEXTOUCH 00 skin at Medical U-100 bedtime. Branch INSULN) 100 unit/mL (3 mL) injection Insulin 2021-0 Yes [id number] 7U inject 7 Un wendy Detemir 2-24 Units ity of (LEVEMIR 00:00: [place] FLEXTOUCH 00 skin at Medical U-100 bedtime. Branch INSULN) 100 unit/mL (3 mL) injection Insulin 0 Yes [id number] 7U inject 7 Un wendy Detemir 2-24 Units ity of (LEVEMIR 00:00: [place] FLEXTOU[place] 00 skin at Medical U-100 bedtime. Branch INSULN) 100 unit/mL (3 mL) injection Insulin 0 Yes [id number] 7U inject 7 Un wendy Detemir 2-24 Units ity of (LEVEMIR 00:00: [place]LEXT[place]CH 00 skin at Medical U-100 bedtime. Branch INSULN) 100 unit/mL (3 mL) injection Insulin Yes [id number] 7U inject 7 Un wendy Detemir 2-24 Units ity of (LEVEMIR 00:00: [place]LEXT[place] 00 skin at Medical U-100 bedtime. Branch INSULN) 100 unit/mL (3 mL) injection Insulin Yes [id number] 7U inject 7 Un wendy Detemir 2-24 Units ity of (LEVEMIR 00:00: [place] FLEXTOU[place] 00 skin at Medical U-100 bedtime. Branch INSULN) 100 unit/mL (3 mL) injection Insulin Yes [id number] 7U inject 7 Un wend[place] Detemir 2-24 Units ity of (LEVEMIR 00:00: [place] FLEXTOUCH 00 skin at Medical U-100 bedtime. Branch INSULN) 100 unit/mL (3 mL) injection Insulin Yes [id number] 7U inject 7 Un wend[place] Detemir 2-24 Units ity of (LEVEMIR 00:00: [place]LEXT[place] 00 skin at Medical U-100 bedtime. Branch INSULN) 100 unit/mL (3 mL) injection Insulin Yes [id number] 7U inject 7 Un wendy Detemir 2-24 Units ity of (LEVEMIR 00:00: [place] FLEXT[place] 00 skin at Medical U-100 bedtime. Branch INSULN) 100 unit/mL (3 mL) injection Insulin Yes [id number] 7U inject 7 Un wend[place] Detemir 2-24 Units ity of (LEVEMIR 00:00: [place] FLEXTOUCH 00 skin at Medical U-100 bedtime. Branch INSULN) 100 unit/mL (3 mL) injection Insulin 0 Yes [id number] 7U inject 7 Un wend[place] Detemir 2-24 Units ity of (LEVEMIR 00:00: [place]LEXTOU[place] 00 skin at Medical U-100 bedtime. Branch INSULN) 100 unit/mL (3 mL) injection Insulin 0 Yes [id number] 7U inject 7 Un wendy Detemir 2-24 Units ity of (LEVEMIR 00:00: [place]LEXT[place] 00 skin at Medical U-100 bedtime. Branch INSULN) 100 unit/mL (3 mL) injection Insulin 0 Yes [id number] 7U inject 7 Un wend[place] Detemir 2-24 Units ity of (LEVEMIR 00:00: [place]LEXTOU[place] 00 skin at Medical U-100 bedtime. Branch INSULN) 100 unit/mL (3 mL) injection Insulin 0 Yes [id number] 7U inject 7 Un wendy Detemir 2-24 Units ity of (LEVEMIR 00:00: [place] FLEXTOUCH 00 skin at Medical U-100 bedtime. Branch INSULN) 100 unit/mL (3 mL) injection Insulin 0 Yes [id number] 7U inject 7 Un wend[place] Detemir 2-24 Units ity of (LEVEMIR 00:00: [place]LEXTOUCH 00 skin at Medical U-100 bedtime. Branch INSULN) 100 unit/mL (3 mL) injection Insulin 0 Yes [id number] 7U inject 7 Un wendy Detemir 2-24 Units ity of (LEVEMIR 00:00: [place]LEXT[place] 00 skin at Medical U-100 bedtime. Branch INSULN) 100 unit/mL (3 mL) injection Insulin 0 Yes [id number] 7U inject 7 Un wend[place] Detemir 2-24 Units ity of (LEVEMIR 00:00: [place]LEXT[place] 00 skin at Medical U-100 bedtime. Branch INSULN) 100 unit/mL (3 mL) injection Insulin 0 Yes [id number] 7U inject 7 Un wendy Detemir 2-24 Units ity of (LEVEMIR 00:00: [place]LEXT[place]CH 00 skin at Medical U-100 bedtime. Branch INSULN) 100 unit/mL (3 mL) injection Insulin 0 Yes [id number] 7U inject 7 Un wend[place] Detemir 2-24 Units ity of (LEVEMIR 00:00: [place] FLEXTOUCH 00 skin at Medical U-100 bedtime. Branch INSULN) 100 unit/mL (3 mL) injection Insulin 0 Yes [id number] 7U inject 7 Un wend[place] Detemir 2-24 Units ity of (LEVEMIR 00:00: [place]LEXT[place] 00 skin at Medical U-100 bedtime. Branch INSULN) 100 unit/mL (3 mL) injection Insulin Yes [id number] 7U inject 7 Un wendy Detemir 2-24 Units ity of (LEVEMIR 00:00: [place]LEXTOU[place] 00 skin at Medical U-100 bedtime. Branch INSULN) 100 unit/mL (3 mL) injection Insulin Yes [id number] 7U inject 7 Un wendy Detemir 2-24 Units ity of (LEVEMIR 00:00: [place] FLEXTOUCH 00 skin at Medical U-100 bedtime. Branch INSULN) 100 unit/mL (3 mL) injection Insulin 0 Yes [id number] 7U inject 7 Un wendy Detemir 2-24 Units ity of (LEVEMIR 00:00: [place]LEXTOUCH 00 skin at Medical U-100 bedtime. Branch INSULN) 100 unit/mL (3 mL) injection Insulin 0 Yes [id number] 7U inject 7 Un wendy Detemir 2-24 Units ity of (LEVEMIR 00:00: [place] FLEXTOUCH 00 skin at Medical U-100 bedtime. Branch INSULN) 100 unit/mL (3 mL) injection Insulin 0 Yes [id number] 7U inject 7 Un wendy Detemir 2-24 Units ity of (LEVEMIR 00:00: [place]LEXTOUCH 00 skin at Medical U-100 bedtime. Branch INSULN) 100 unit/mL (3 mL) injection Insulin Yes [id number] 7U inject 7 Un wendy Detemir 2-24 Units ity of (LEVEMIR 00:00: [place]LEXTOUCH 00 skin at Medical U-100 bedtime. Branch INSULN) 100 unit/mL (3 mL) injection Insulin Yes [id number] 7U inject 7 Un wendy Detemir 2-24 Units ity of (LEVEMIR 00:00: [place]LEXT[place] 00 skin at Medical U-100 bedtime. Branch INSULN) 100 unit/mL (3 mL) injection Insulin Yes [id number] 7U inject 7 Un wend[facility] Detemir 2-24 Units ity of (LEVEMIR 00:00: [place]LE[place] 00 skin at Medical U-100 bedtime. Branch INSULN) 100 unit/mL (3 mL) injection Insulin Yes [id number] 7U inject 7 Un wendy Detemir 2-24 Units ity of (LEVEMIR 00:00: [place]LEXT[place] 00 skin at Medical U-100 bedtime. Branch INSULN) 100 unit/mL (3 mL) injection Insulin Yes [id number] 7U inject 7 Un wendy Detemir 2-24 Units ity of (LEVEMIR 00:00: [place]LEXT[place]CH 00 skin at Medical U-100 bedtime. Branch INSULN) 100 unit/mL (3 mL) injection Insulin Yes [id number] 7U inject 7 Un wendy Detemir 2-24 Units ity of (LEVEMIR 00:00: [place]LEXT[place] 00 skin at Medical U-100 bedtime. Branch INSULN) 100 unit/mL (3 mL) injection Insulin Yes [id number] 7U inject 7 Un wendy Detemir 2-24 Units ity of (LEVEMIR 00:00: [place] FLEXT[place] 00 skin at Medical U-100 bedtime. Branch INSULN) 100 unit/mL (3 mL) injection Insulin Yes [id number] 7U inject 7 Un wendy Detemir 2-24 Units ity of (LEVEMIR 00:00: [place] FLEXTOUCH 00 [facility] at [facility]100 bedtime. Branch INSULN) 100 unit/mL (3 mL) injection Insulin Yes [id number] 7U inject 7 Un wendy [place] 2-24 Units [facility] ([place] [facility]-100 bedtime. Branch INSULN) 100 unit/mL (3 mL) injection Insulin Yes [id number] 7U inject 7 Un wendy [place] 2-24 Units [facility]y of ([place] 00:[place] [facility]-100 bedtime. Branch INSULN) 100 unit/mL (3 mL) injection Insulin Yes [id number] 7U inject 7 Un wendy [place] 2-24 Units ity of ([place] 00:[place] [facility] [facility] at [facility]-100 bedtime. Branch INSULN) 100 unit/mL (3 mL) injection Insulin Yes [id number] 7U inject 7 Un wendy [place] 2-24 Units [facility]y of ([place] 00:[place] [facility] [facility] at [facility]-100 bedtime. Branch INSULN) 100 unit/mL (3 mL) injection Insulin Yes [id number] 7U inject 7 Un wendy [place] 2-24 Units ity of ([facility] 00:[place]: [place] [facility] [place] [facility] at [facility]-100 bedtime. Branch INSULN) 100 unit/mL (3 mL) injection Insulin Yes [id number] 7U inject 7 Un wendy [place] 2-24 Units ity of ([place] 00:[place]: [place] [facility] [facility] at [facility]-100 bedtime. Branch INSULN) 100 unit/mL (3 mL) injection Insulin Yes [id number] 7U inject 7 Un wendy [place] 2-24 Units ity of ([facility] 00:00: [place] [facility] [place] [facility] at [facility]-100 bedtime. Branch INSULN) 100 unit/mL (3 mL) injection Insulin Yes [id number] 7U inject 7 Un wendy [place] 2-24 Units [facility]y of ([facility] 00:00: [place] [facility] at [facility]-100 bedtime. Branch INSULN) 100 unit/mL (3 mL) injection Insulin Yes [id number] 7U inject 7 Un wendy [place] 2-24 Units [facility]y of ([facility] 00:00: [place] [facility] [place] [facility] at [facility]-100 bedtime. Branch INSULN) 100 unit/mL (3 mL) injection Insulin Yes [id number] 7U inject 7 Un wendy [place] 2-24 Units [facility]y of ([facility] 00:00: [place] [facility] [place] [facility] at [facility]-100 bedtime. Branch INSULN) 100 unit/mL (3 mL) injection Insulin Yes [id number] 7U inject 7 Un wend[facility] [place] 2-24 Units [facility] of ([facility] 00:[place]: [place] [facility] at [facility]-100 bedtime. Branch INSULN) 100 unit/mL (3 mL) injection Insulin Yes [id number] 7U inject 7 Un wendy [place] 2-24 Units [facility] of ([facility] 00:00: [place] [facility] [place] [facility] at [facility]-100 bedtime. Branch INSULN) 100 unit/mL (3 mL) injection Insulin Yes [id number] 7U inject 7 Un wendy [facility] 2-24 Units ity of ([facility] 00:00: [place] [facility] at [facility]-100 bedtime. Branch INSULN) 100 unit/mL (3 mL) injection Insulin Yes [id number] 7U inject 7 Un wend[facility] [place] 2-24 Units ity of ([facility] 00:00: [place] [facility] at [facility]-100 bedtime. Branch INSULN) 100 unit/mL (3 mL) injection Insulin Yes [id number] 7U inject 7 Un wend[facility] 2-24 Units ity of ([facility] 00:00: [place] [facility] at [facility]-100 bedtime. Branch INSULN) 100 unit/mL (3 mL) injection Insulin 0 Yes [id number] 7U inject 7 Un wendy [facility] 2-24 Units ity of ([facility] 00:00: [place] [facility] at [facility]-100 bedtime. Branch INSULN) 100 unit/mL (3 mL) injection Insulin Yes [id number] 7U inject 7 Un wend[facility] [place] 2-24 Units [facility] of ([facility] 00:00: [place] [facility] at [facility]-100 bedtime. Branch INSULN) 100 unit/mL (3 mL) injection Insulin Yes [id number] 7U inject 7 Un wendy [place] 2-24 Units ity of ([facility] 00:00: [place] [facility] at [facility]-100 bedtime. Branch INSULN) 100 unit/mL (3 mL) injection Insulin Yes [id number] 7U inject 7 Un wendy [facility] 2-24 Units ity of ([facility] 00:00: [place] [facility] at [facility]-100 bedtime. Branch INSULN) 100 unit/mL (3 mL) injection Insulin Yes [id number] 7U inject 7 Un wendy [facility] 2-24 Units ity of ([facility]EM[facility] 00:00: [place] [facility] at [facility]-100 bedtime. Branch INSULN) 100 unit/mL (3 mL) injection Insulin Yes [id number] 7U inject 7 Un wendy [facility] 2-24 Units ity of ([facility] 00:00: [place] [facility] at [facility]-100 bedtime. Branch INSULN) 100 unit/mL (3 mL) injection Insulin 0 Yes [id number] 7U inject 7 Un wendy [facility] 2-24 Units ity of ([facility] 00:00: [place] [facility] at [facility]-100 bedtime. Branch INSULN) 100 unit/mL (3 mL) injection Insulin 0 Yes [id number] 7U inject 7 Un wendy [facility] 2-24 Units [facility] of ([facility]EM[facility] 00:00: [place] [facility] at [facility]-100 bedtime. Branch INSULN) 100 unit/mL (3 mL) injection Insulin Yes [id number] 7U inject 7 Un wendy [facility] 2-24 Units ity of ([facility] 00:00: [place] [facility] at [facility]-100 bedtime. Branch INSULN) 100 unit/mL (3 mL) injection Insulin Yes [id number] 7U inject 7 Un wendy [place] 2-24 Units ity of ([facility]EM[facility] 00:00: [place] [facility] at [facility]-100 bedtime. Branch INSULN) 100 unit/mL (3 mL) injection Insulin Yes [id number] 7U inject 7 Un wendy [place] 2-24 Units ity of ([facility] 00:00: [place] [facility] at [facility]-100 bedtime. Branch INSULN) 100 unit/mL (3 mL) injection Insulin Yes [id number] 7U inject 7 Un wendy [facility] 2-24 Units [facility] of ([facility] 00:00: [place] [facility] at [facility]-100 bedtime. Branch INSULN) 100 unit/mL (3 mL) injection Insulin Yes [id number] 7U inject 7 Un wendy [facility] 2-24 Units [facility] of ([facility] 00:00: [place] [facility] at [facility]-100 bedtime. Branch INSULN) 100 unit/mL (3 mL) injection Insulin Yes [id number] 7U inject 7 Un wendy [facility] 2-24 Units ity of ([facility]EM[facility] 00:00: [place] [facility] at [facility]-100 bedtime. Branch INSULN) 100 unit/mL (3 mL) injection Insulin Yes [id number] 7U inject 7 Un wend[facility] 2-24 Units ity of (LEVEMIR 00:00: [place] [facility] at [facility]-100 bedtime. Branch INSULN) 100 unit/mL (3 mL) injection Insulin Yes [id number] 7U inject 7 Un wendy [facility] 2-24 Units [facility] of ([facility]EM[facility] 00:00: [place] [facility] at [facility]-100 bedtime. Branch INSULN) 100 unit/mL (3 mL) injection Insulin 0 Yes [id number] 7U inject 7 Un wendy [facility] 2-24 Units [facility]y of ([facility] 00:00: [place] [facility] at [facility]-100 bedtime. Branch INSULN) 100 unit/mL (3 mL) injection Insulin 0 Yes [id number] 7U inject 7 Un wend[facility] [place] 2-24 Units [facility] of ([facility]EM[facility] 00:00: [place] [facility] skin at [facility]-100 bedtime. Branch INSULN) 100 unit/mL (3 mL) injection Insulin 0 Yes [id number] 7U inject 7 Un wendy [place] 2-24 Units ity of ([facility] 00:00: [place] [facility] at [facility]-100 bedtime. Branch INSULN) 100 unit/mL (3 mL) injection Insulin 0 Yes [id number] 7U inject 7 Un wendy [place] 2-24 Units ity of ([facility] 00:00: [place] [facility] at [facility]-100 bedtime. Branch INSULN) 100 unit/mL (3 mL) injection Insulin 0 Yes [id number] 7U inject 7 Un wend[facility] 2-24 Units it[facility] of ([facility] 00:00: [place] [facility] skin at [facility]-100 bedtime. Branch INSULN) 100 unit/mL (3 mL) injection Insulin 0 Yes [id number] 7U inject 7 Un wendy [facility] 2-24 Units ity of ([facility] 00:00: [place] [facility] at [facility]-100 bedtime. Branch INSULN) 100 unit/mL (3 mL) injection Insulin 0 Yes [id number] 7U inject 7 Un wendy [facility] 2-24 Units ity of ([facility]EM[facility] 00:00: [place] [facility] skin at [facility]-100 bedtime. Branch INSULN) 100 unit/mL (3 mL) injection Insulin 0 Yes [id number] 7U inject 7 Un wendy [facility] 2-24 Units ity of ([facility] 00:00: [place] [facility] at [facility]-100 bedtime. Branch INSULN) 100 unit/mL (3 mL) injection Insulin 0 Yes [id number] 7U inject 7 Un wend[facility] 2-24 Units [facility] of ([facility]EM[facility] 00:00: [place] [facility] skin at [facility]-100 bedtime. Branch INSULN) 100 unit/mL (3 mL) injection Insulin 0 Yes [id number] 7U inject 7 Un wendy [facility] 2-24 Units [facility] of ([facility]EM[facility] 00:00: [place] [facility] 00 skin at [facility]-100 bedtime. Branch INSULN) 100 unit/mL (3 mL) injection Insulin Yes [id number] 7U inject 7 Un wend[facility] [place] 2-24 Units ity of ([facility]EM[facility] 00:00: [place] [facility] skin at [facility]-100 bedtime. Branch INSULN) 100 unit/mL (3 mL) injection Insulin Yes [id number] 7U inject 7 Un wendy [facility] 2-24 Units [facility] of ([facility]EM[facility] 00:00: [place] [facility] skin at [facility]-100 bedtime. Branch INSULN) 100 unit/mL (3 mL) injection Insulin 0 Yes [id number] 7U inject 7 Un wendy [facility] 2-24 Units ity of ([facility]EMIR 00:00: [place] [facility] 00 skin at [facility]-100 bedtime. Branch INSULN) 100 unit/mL (3 mL) injection Insulin 0 Yes [id number] 7U inject 7 Un wendy [facility] 2-24 Units [facility] of ([facility]EM[facility] 00:00: [place] [facility] skin at [facility]-100 bedtime. Branch INSULN) 100 unit/mL (3 mL) injection Insulin 0 Yes [id number] 7U inject 7 Un wendy [facility] 2-24 Units ity of ([facility]EMIR 00:00: [place] [facility] 00 skin at [facility]-100 bedtime. Branch INSULN) 100 unit/mL (3 mL) injection Insulin Yes [id number] 7U inject 7 Un wendy [facility] 2-24 Units ity of ([facility]EM[facility] 00:00: [place] [facility] skin at [facility]-100 bedtime. Branch INSULN) 100 unit/mL (3 mL) injection Insulin 2022- No [id number] 7U inject 7 U nivers [facility] 2-24 04-28 Units ity of (LEVEMIR 00:00: 00:00 under the [place] FLEXTOUCH 00 :00 skin at [facility]-100 bedtime. Branch INSULN) 100 unit/mL (3 mL) injection Insulin 2022- No [id number] 7U inject 7 U nivers [place] 2-24 04-28 Units ity of (LEVEMIR 00:00: 00:00 under the [place] FLEXTOUCH 00 :00 skin at [facility]-100 bedtime. Branch INSULN) 100 unit/mL (3 mL) injection baclofen 5 2021- No [id number] 5mg Take 1 [facility] mg tablet -05 01- tablet by [facility]y of 00:00: 00:00 mouth 3 [place] 00 :00 (three) Medical times Branch daily as needed (muscle pain or spasm). baclofen 5 2021- No [id number] 5mg Take 1 [facility] mg tablet 06-07- tablet by ity of 00:00: 00:00 mouth 3 [place] 00 :00 (three) Medical times Branch daily as needed (muscle pain or spasm). baclofen 5 2021- No [id number] 5mg Take 1 [facility] mg tablet -05 01- tablet by ity of 00:00: 00:00 mouth 3 [place] 00 :00 (three) Medical times Branch daily as needed (muscle pain or spasm). linaCLOtide 2020-04 Yes [id number] 290ug Take 1 [facility] (LINZESS) 2-28 capsule by ity of 290 mcg Cap 00:00: mouth [place] 00 daily. [facility] linaCLOtide 2020-04 Yes [id number] 290ug Take 1 [facility] (LINZESS) 2-28 capsule by ity of 290 mcg Cap 00:00: mouth [place] 00 daily. [facility] linaCLOtide 2020-04 Yes [id number] 290ug Take 1 [facility] (LINZESS) 2-28 capsule by ity of 290 mcg Cap 00:00: mouth [place] 00 daily. Medical Branch linaCLOtide 2020-04 Yes [id number] 290ug Take 1 [facility] (LINZESS) 2-28 capsule by ity of 290 mcg Cap 00:00: mouth [place] 00 daily. Medical Branch linaCLOtide 2020-04 Yes [id number] 290ug Take 1 [facility] (LINZESS) 2-28 capsule by ity of 290 mcg Cap 00:00: mouth [place] 00 daily. Medical Branch linaCLOtide 2020-04 Yes [id number] 290ug Take 1 [facility] (LINZESS) 2-28 capsule by ity of 290 mcg Cap 00:00: mouth [place] 00 daily. Medical Branch linaCLOtide 2020-04 Yes [id number] 290ug Take 1 [facility] (LINZESS) 2-28 capsule by ity of 290 mcg Cap 00:00: mouth [place] 00 daily. Medical [facility] linaCLOtide 2020-04 Yes [id number] 290ug Take 1 [facility] (LINZESS) 2-28 capsule by ity of 290 mcg Cap 00:00: mouth [place] 00 daily. Medical [facility] linaCLOtide 2020-04 Yes [id number] 290ug Take 1 [facility] (LINZESS) 2-28 capsule by ity of 290 mcg Cap 00:00: mouth [place] 00 daily. Medical [facility] linaCLOtide 2020-04 Yes [id number] 290ug Take 1 [facility] (LINZESS) 2-28 capsule by ity of 290 mcg Cap 00:00: mouth [place] 00 daily. Medical [facility] linaCLOtide 2020-04 Yes [id number] 290ug Take 1 [facility] (LINZESS) 2-28 capsule by ity of 290 mcg Cap 00:00: mouth [place] 00 daily. Medical [facility] linaCLOtide 2020-04 Yes [id number] 290ug Take 1 [facility] (LINZESS) 2-28 capsule by ity of 290 mcg Cap 00:00: mouth [place] 00 daily. Medical [facility] linaCLOtide 2020-04 Yes [id number] 290ug Take 1 [facility] (LINZESS) 2-28 capsule by ity of 290 mcg Cap 00:00: mouth [place] 00 daily. Medical [facility] linaCLOtide 2021-1 Yes [id number] 290ug Take 1 [facility] (LINZESS) 2-28 capsule by ity of 290 mcg Cap 00:00: mouth [place] 00 daily. Medical [facility] linaCLOtide 2020-04 Yes [id number] 290ug Take 1 [facility] (LINZESS) 2-28 capsule by ity of 290 mcg Cap 00:00: mouth [place] 00 daily. Medical [facility] linaCLOtide 2020-04 Yes [id number] 290ug Take 1 [facility] (LINZESS) 2-28 capsule by ity of 290 mcg Cap 00:00: mouth [place] 00 daily. Medical [facility] linaCLOtide 2020-04 Yes [id number] 290ug Take 1 [facility] (LINZESS) 2-28 capsule by ity of 290 mcg Cap 00:00: mouth [place] 00 daily. Medical [facility] linaCLOtide 2020-04 Yes [id number] 290ug Take 1 [facility] (LINZESS) 2-28 capsule by ity of 290 mcg Cap 00:00: mouth [place] 00 daily. Medical Branch linaCLOtide 2020-04 Yes [id number] 290ug Take 1 [facility] (LINZESS) 2-28 capsule by ity of 290 mcg Cap 00:00: mouth [place] 00 daily. Medical Branch linaCLOtide 2020-04 Yes [id number] 290ug Take 1 [facility] (LINZESS) 2-28 capsule by ity of 290 mcg Cap 00:00: mouth [place] 00 daily. Medical Branch linaCLOtide 2020-04 Yes [id number] 290ug Take 1 [facility] (LINZESS) 2-28 capsule by ity of 290 mcg Cap 00:00: mouth [place] 00 daily. Medical Branch linaCLOtide 2020-04 Yes [id number] 290ug Take 1 [facility] (LINZESS) 2-28 capsule by ity of 290 mcg Cap 00:00: mouth [place] 00 daily. Medical Branch linaCLOtide 2020-04 Yes [id number] 290ug Take 1 [facility] (LINZESS) 2-28 capsule by ity of 290 mcg Cap 00:00: mouth [place] 00 daily. Medical Branch linaCLOtide 2020-04 Yes [id number] 290ug Take 1 [facility] (LINZESS) 2-28 capsule by ity of 290 mcg Cap 00:00: mouth [place] 00 daily. Medical Branch linaCLOtide 2020-04 Yes [id number] 290ug Take 1 [facility] (LINZESS) 2-28 capsule by ity of 290 mcg Cap 00:00: mouth [place] 00 daily. Medical Branch linaCLOtide 2020-04 Yes [id number] 290ug Take 1 [facility] (LINZESS) 2-28 capsule by ity of 290 mcg Cap 00:00: mouth [place] 00 daily. Medical Branch linaCLOtide 2020-04 Yes [id number] 290ug Take 1 [facility] (LINZESS) 2-28 capsule by ity of 290 mcg Cap 00:00: mouth [place] 00 daily. Medical Branch linaCLOtide 2020-04 Yes [id number] 290ug Take 1 [facility] (LINZESS) 2-28 capsule by ity of 290 mcg Cap 00:00: mouth [place] 00 daily. Medical Branch linaCLOtide 2020-04 Yes [id number] 290ug Take 1 [facility] (LINZESS) 2-28 capsule by ity of 290 mcg Cap 00:00: mouth [place] 00 daily. Medical Branch linaCLOtide 2020-04 Yes [id number] 290ug Take 1 [facility] (LINZESS) 2-28 capsule by ity of 290 mcg Cap 00:00: mouth [place] 00 daily. Medical Branch linaCLOtide 2020-04 Yes [id number] 290ug Take 1 [facility] (LINZESS) 2-28 capsule by ity of 290 mcg Cap 00:00: mouth [place] 00 daily. Medical Branch linaCLOtide 2020-04 Yes [id number] 290ug Take 1 [facility] (LINZESS) 2-28 capsule by ity of 290 mcg Cap 00:00: mouth [place] 00 daily. Medical Branch linaCLOtide 2020-04 Yes [id number] 290ug Take 1 [facility] (LINZESS) 2-28 capsule by ity of 290 mcg Cap 00:00: mouth [place] 00 daily. Medical Branch linaCLOtide 2020-04 Yes [id number] 290ug Take 1 [facility] (LINZESS) 2-28 capsule by ity of 290 mcg Cap 00:00: mouth [place] 00 daily. Medical Branch linaCLOtide 2020-04 Yes [id number] 290ug Take 1 [facility] (LINZESS) 2-28 capsule by ity of 290 mcg Cap 00:00: mouth [place] 00 daily. Medical Branch linaCLOtide 2020-04 Yes [id number] 290ug Take 1 [facility] (LINZESS) 2-28 capsule by ity of 290 mcg Cap 00:00: mouth [place] 00 daily. Medical Branch linaCLOtide 2020-04 Yes [id number] 290ug Take 1 [facility] (LINZESS) 2-28 capsule by ity of 290 mcg Cap 00:00: mouth [place] 00 daily. Medical Branch linaCLOtide 2020-04 Yes [id number] 290ug Take 1 [facility] (LINZESS) 2-28 capsule by ity of 290 mcg Cap 00:00: mouth [place] 00 daily. Medical Branch linaCLOtide 2020-04 Yes [id number] 290ug Take 1 [facility] (LINZESS) 2-28 capsule by ity of 290 mcg Cap 00:00: mouth [place] 00 daily. Medical Branch linaCLOtide 2020-04 Yes [id number] 290ug Take 1 [facility] (LINZESS) 2-28 capsule by ity of 290 mcg Cap 00:00: mouth [place] 00 daily. Medical Branch linaCLOtide 2020-04 Yes [id number] 290ug Take 1 [facility] (LINZESS) 2-28 capsule by ity of 290 mcg Cap 00:00: mouth [place] 00 daily. Medical Branch linaCLOtide 2020-04 Yes [id number] 290ug Take 1 [facility] (LINZESS) 2-28 capsule by ity of 290 mcg Cap 00:00: mouth [place] 00 daily. Medical Branch linaCLOtide 2020-04 Yes [id number] 290ug Take 1 [facility] (LINZESS) 2-28 capsule by ity of 290 mcg Cap 00:00: mouth [place] 00 daily. Medical Branch linaCLOtide 2020-04 Yes [id number] 290ug Take 1 [facility] (LINZESS) 2-28 capsule by ity of 290 mcg Cap 00:00: mouth [place] 00 daily. Medical Branch linaCLOtide 2020-04 Yes [id number] 290ug Take 1 [facility] (LINZESS) 2-28 capsule by ity of 290 mcg Cap 00:00: mouth [place] 00 daily. Medical Branch linaCLOtide 2020-04 Yes [id number] 290ug Take 1 [facility] (LINZESS) 2-28 capsule by ity of 290 mcg Cap 00:00: mouth [place] 00 daily. Medical Branch linaCLOtide 2020-04 Yes [id number] 290ug Take 1 [facility] (LINZESS) 2-28 capsule by ity of 290 mcg Cap 00:00: mouth [place] 00 daily. Medical Branch linaCLOtide 2020-04 Yes [id number] 290ug Take 1 [facility] (LINZESS) 2-28 capsule by ity of 290 mcg Cap 00:00: mouth [place] 00 daily. Medical Branch linaCLOtide 2020-04 Yes [id number] 290ug Take 1 [facility] (LINZESS) 2-28 capsule by ity of 290 mcg Cap 00:00: mouth [place] 00 daily. Medical Branch linaCLOtide 2020-04 Yes [id number] 290ug Take 1 [facility] (LINZESS) 2-28 capsule by ity of 290 mcg Cap 00:00: mouth [place] 00 daily. Medical Branch linaCLOtide 2020-04 Yes [id number] 290ug Take 1 [facility] (LINZESS) 2-28 capsule by ity of 290 mcg Cap 00:00: mouth [place] 00 daily. Medical Branch linaCLOtide 2020-04 Yes [id number] 290ug Take 1 [facility] (LINZESS) 2-28 capsule by ity of 290 mcg Cap 00:00: mouth [place] 00 daily. Medical Branch linaCLOtide 2020-04 Yes [id number] 290ug Take 1 [facility] (LINZESS) 2-28 capsule by ity of 290 mcg Cap 00:00: mouth [place] 00 daily. Medical Branch linaCLOtide 2020-04 Yes [id number] 290ug Take 1 [facility] (LINZESS) 2-28 capsule by ity of 290 mcg Cap 00:00: mouth [place] 00 daily. Medical Branch linaCLOtide 2020-04 Yes [id number] 290ug Take 1 [facility] (LINZESS) 2-28 capsule by ity of 290 mcg Cap 00:00: mouth [place] 00 daily. Medical Branch linaCLOtide 2020-04 Yes [id number] 290ug Take 1 [facility] (LINZESS) 2-28 capsule by ity of 290 mcg Cap 00:00: mouth [place] 00 daily. Medical Branch linaCLOtide 2020-04 Yes [id number] 290ug Take 1 [facility] (LINZESS) 2-28 capsule by ity of 290 mcg Cap 00:00: mouth [place] 00 daily. Medical Branch linaCLOtide 2020-04 Yes [id number] 290ug Take 1 [facility] (LINZESS) 2-28 capsule by ity of 290 mcg Cap 00:00: mouth [place] 00 daily. Medical Branch linaCLOtide 2020-04 Yes [id number] 290ug Take 1 [facility] (LINZESS) 2-28 capsule by ity of 290 mcg Cap 00:00: mouth [place] 00 daily. Medical Branch linaCLOtide 2020-04 Yes [id number] 290ug Take 1 [facility] (LINZESS) 2-28 capsule by ity of 290 mcg Cap 00:00: mouth [place] 00 daily. Medical Branch linaCLOtide 2020-04 Yes [id number] 290ug Take 1 [facility] (LINZESS) 2-28 capsule by ity of 290 mcg Cap 00:00: mouth [place] 00 daily. Medical Branch linaCLOtide 2020-04 Yes [id number] 290ug Take 1 [facility] (LINZESS) 2-28 capsule by ity of 290 mcg Cap 00:00: mouth [place] 00 daily. Medical Branch linaCLOtide 2020-04 Yes [id number] 290ug Take 1 [facility] (LINZESS) 2-28 capsule by ity of 290 mcg Cap 00:00: mouth [place] 00 daily. Medical Branch linaCLOtide 2020-04 Yes [id number] 290ug Take 1 [facility] (LINZESS) 2-28 capsule by ity of 290 mcg Cap 00:00: mouth [place] 00 daily. Medical Branch linaCLOtide 2020-04 Yes [id number] 290ug Take 1 [facility] (LINZESS) 2-28 capsule by ity of 290 mcg Cap 00:00: mouth [place] 00 daily. [facility] Branch linaCLOtide 2020-04 Yes [id number] 290ug Take 1 [facility] (LINZESS) 2-28 capsule by ity of 290 mcg Cap 00:00: mouth [place] 00 daily. Medical Branch linaCLOtide 2020-04 Yes [id number] 290ug Take 1 [facility] (LINZESS) 2-28 capsule by ity of 290 mcg Cap 00:00: mouth [place] 00 daily. [facility] Branch linaCLOtide 2020-04 Yes [id number] 290ug Take 1 [facility] (LINZESS) 2-28 capsule by ity of 290 mcg Cap 00:00: mouth [place] 00 daily. [facility] Branch linaCLOtide 2020-04 Yes [id number] 290ug Take 1 [facility] (LINZESS) 2-28 capsule by ity of 290 mcg Cap 00:00: mouth [place] 00 daily. Medical Branch linaCLOtide 2020-04 Yes [id number] 290ug Take 1 [facility] (LINZESS) 2-28 capsule by ity of 290 mcg Cap 00:00: mouth [place] 00 daily. Medical Branch linaCLOtide 2020-04 Yes [id number] 290ug Take 1 [facility] (LINZESS) 2-28 capsule by ity of 290 mcg Cap 00:00: mouth [place] 00 daily. Medical Branch linaCLOtide 2020-04 Yes [id number] 290ug Take 1 [facility] (LINZESS) 2-28 capsule by ity of 290 mcg Cap 00:00: mouth [place] 00 daily. Medical Branch linaCLOtide 2020-04 Yes [id number] 290ug Take 1 [facility] (LINZESS) 2-28 capsule by ity of 290 mcg Cap 00:00: mouth [place] 00 daily. Medical Branch linaCLOtide 2020-04 Yes [id number] 290ug Take 1 [facility] (LINZESS) 2-28 capsule by ity of 290 mcg Cap 00:00: mouth [place] 00 daily. Medical Branch linaCLOtide 2020-04 Yes [id number] 290ug Take 1 [facility] (LINZESS) 2-28 capsule by ity of 290 mcg Cap 00:00: mouth [place] 00 daily. Medical Branch linaCLOtide 2020-04 Yes [id number] 290ug Take 1 [facility] (LINZESS) 2-28 capsule by ity of 290 mcg Cap 00:00: mouth [place] 00 daily. Medical Branch linaCLOtide 2020-04 Yes [id number] 290ug Take 1 [facility] (LINZESS) 2-28 capsule by ity of 290 mcg Cap 00:00: mouth [place] 00 daily. Medical Branch linaCLOtide 2020-04 Yes [id number] 290ug Take 1 [facility] (LINZESS) 2-28 capsule by ity of 290 mcg Cap 00:00: mouth [place] 00 daily. Medical Branch linaCLOtide 2020-04 Yes [id number] 290ug Take 1 [facility] (LINZESS) 2-28 capsule by ity of 290 mcg Cap 00:00: mouth [place] 00 daily. Medical Branch linaCLOtide 2020-04 Yes [id number] 290ug Take 1 [facility] (LINZESS) 2-28 capsule by ity of 290 mcg Cap 00:00: mouth [place] 00 daily. Medical Branch linaCLOtide 2020-04 Yes [id number] 290ug Take 1 [facility] (LINZESS) 2-28 capsule by ity of 290 mcg Cap 00:00: mouth [place] 00 daily. [facility] Branch linaCLOtide 2020-04 Yes [id number] 290ug Take 1 [facility] (LINZESS) 2-28 capsule by ity of 290 mcg Cap 00:00: mouth [place] 00 daily. [facility] Branch linaCLOtide 2020-04 Yes [id number] 290ug Take 1 [facility] (LINZESS) 2-28 capsule by ity of 290 mcg Cap 00:00: mouth [place] 00 daily. [facility] Branch linaCLOtide 2020-04 Yes [id number] 290ug Take 1 [facility] (LINZESS) 2-28 capsule by ity of 290 mcg Cap 00:00: mouth [place] 00 daily. [facility] Branch linaCLOtide 2020-04 Yes [id number] 290ug Take 1 [facility] (LINZESS) 2-28 capsule by ity of 290 mcg Cap 00:00: mouth [place] 00 daily. [facility] Branch linaCLOtide 2020-04 Yes [id number] 290ug Take 1 [facility] (LINZESS) 2-28 capsule by ity of 290 mcg Cap 00:00: mouth [place] 00 daily. [facility] Branch linaCLOtide 2020-04 Yes [id number] 290ug Take 1 [facility] (LINZESS) 2-28 capsule by ity of 290 mcg Cap 00:00: mouth [place] 00 daily. [facility] Branch linaCLOtide 2020-04 Yes [id number] 290ug Take 1 [facility] (LINZESS) 2-28 capsule by ity of 290 mcg Cap 00:00: mouth [place] 00 daily. [facility] Branch linaCLOtide 2020-04 Yes [id number] 290ug Take 1 [facility] (LINZESS) 2-28 capsule by ity of 290 mcg Cap 00:00: mouth [place] 00 daily. [facility] Branch linaCLOtide 2020-04 Yes [id number] 290ug Take 1 [facility] (LINZESS) 2-28 capsule by ity of 290 mcg Cap 00:00: mouth [place] 00 daily. [facility] Branch linaCLOtide 2020-04 Yes [id number] 290ug Take 1 [facility] (LINZESS) 2-28 capsule by ity of 290 mcg Cap 00:00: mouth [place] 00 daily. [facility] Branch linaCLOtide 2020-04 Yes [id number] 290ug Take 1 [facility] (LINZESS) 2-28 capsule by ity of 290 mcg Cap 00:00: mouth [place] 00 daily. [facility] Branch linaCLOtide 2020-04 Yes [id number] 290ug Take 1 [facility] (LINZESS) 2-28 capsule by ity of 290 mcg Cap 00:00: mouth [place] 00 daily. [facility] Branch linaCLOtide 2020-04 Yes [id number] 290ug Take 1 [facility] (LINZESS) 2-28 capsule by ity of 290 mcg Cap 00:00: mouth [place] 00 daily. [facility] Branch linaCLOtide 2020-04 Yes [id number] 290ug Take 1 [facility] (LINZESS) 2-28 capsule by ity of 290 mcg Cap 00:00: mouth [place] 00 daily. Medical Branch linaCLOtide 2020-04 Yes [id number] 290ug Take 1 [facility] (LINZESS) 2-28 capsule by ity of 290 mcg Cap 00:00: mouth 00 daily. Medical Branch linaCLOtide 2020-04 Yes [id number] 290ug Take 1 [facility] (LINZESS) 2-28 capsule by ity of 290 mcg Cap 00:00: mouth [place] 00 daily. [facility] Branch albuterol Yes [id number] 2 puffs U nivers 90 9-23 with ity of mcg/actuati 00:00: spacer 4 [place] inhaler 00 times a Medica l day for at Branch least 7 days albuterol 0 Yes [id number] 2 puffs [facility] 90 9-23 with [facility] of mcg/actuati 00:00: spacer [place] inhaler 00 times a Medica l day for at Branch least 7 days albuterol 0 Yes [id number] 2 puffs [facility] 90 9-23 with [facility] of mcg/actuati 00:00: spacer 4 [place] inhaler 00 times a Medica l day for at Branch least 7 days albuterol 0 Yes [id number] 2 puffs [facility] 90 9-23 with [facility] of mcg/actuati 00:00: spacer 4 [place] inhaler 00 times a Medica l day for at Branch least 7 days albuterol 0 Yes [id number] 2 puffs [facility] 90 9-23 with [facility] of mcg/actuati 00:00: spacer 4 [place] inhaler 00 times a Medica l day for at Branch least 7 days albuterol 0 Yes [id number] 2 puffs [facility] 90 9-23 with [facility] of mcg/actuati 00:00: spacer 4 [place] inhaler 00 times a Medica l day for at Branch least 7 days albuterol 2020-0 Yes [id number] 2 puffs [facility] 90 9-23 with [facility] of mcg/actuati 00:00: spacer 4 [place] inhaler 00 times a Medica l day for at Branch least 7 days albuterol 2020-0 Yes [id number] 2 puffs [facility] 90 9-23 with [facility] of mcg/actuati 00:00: spacer 4 [place] inhaler 00 times a Medica l day for at Branch least 7 days albuterol 2020-0 Yes [id number] 2 puffs [facility] 90 9-23 with [facility] of mcg/actuati 00:00: spacer 4 [place] inhaler 00 times a Medica l day for at Branch least 7 days albuterol 2020-0 Yes [id number] 2 puffs [facility] 90 9-23 with [facility] of mcg/actuati 00:00: spacer 4 [place] inhaler 00 times a Medica l day for at Branch least 7 days albuterol 202-0 Yes [id number] 2 puffs [facility] 90 9-23 with [facility] of mcg/actuati 00:00: spacer 4 [place] inhaler 00 times a Medica l day for at Branch least 7 days albuterol 2020-0 Yes [id number] 2 puffs [facility] 90 9-23 with [facility] of mcg/actuati 00:00: spacer 4 [place] inhaler 00 times a Medica l day for at Branch least 7 days albuterol 2020-0 Yes [id number] 2 puffs [facility] 90 9-23 with [facility] of mcg/actuati 00:00: spacer 4 [place] inhaler 00 times a Medica l day for at Branch least 7 days albuterol 2020-0 Yes [id number] 2 puffs [facility] 90 9-23 with [facility] of mcg/actuati 00:00: spacer 4 [place] inhaler 00 times a Medica l day for at Branch least 7 days albuterol 2020-0 Yes [id number] 2 puffs [facility] 90 9-23 with [facility] of mcg/actuati 00:00: spacer 4 [place] inhaler 00 times a Medica l day for at Branch least 7 days albuterol 2020-0 Yes [id number] 2 puffs [facility] 90 9-23 with [facility] of mcg/actuati 00:00: spacer 4 [place] inhaler 00 times a Medica l day for at Branch least 7 days albuterol 2020-0 Yes [id number] 2 puffs [facility] 90 9-23 with [facility] of mcg/actuati 00:00: spacer 4 [place] inhaler 00 times a Medica l day for at Branch least 7 days albuterol 2020-0 Yes [id number] 2 puffs [facility] 90 9-23 with [facility] of mcg/actuati 00:00: spacer 4 [place] inhaler 00 times a Medica l day for at Branch least 7 days albuterol 2020-0 Yes [id number] 2 puffs [facility] 90 9-23 with [facility] of mcg/actuati 00:00: spacer 4 [place] inhaler 00 times a Medica l day for at Branch least 7 days albuterol 2020-0 Yes [id number] 2 puffs [facility] 90 9-23 with [facility] of mcg/actuati 00:00: spacer 4 [place] inhaler 00 times a Medica l day for at Branch least 7 days albuterol 2020-0 Yes [id number] 2 puffs [facility] 90 9-23 with [facility]y of mcg/actuati 00:00: spacer 4 [place] inhaler 00 times a Medica l day for at Branch least 7 days albuterol 2020-0 Yes [id number] 2 puffs [facility] 90 9-23 with [facility]y of mcg/actuati 00:00: spacer 4 [place] inhaler 00 times a Medica l day for at Branch least 7 days albuterol 2020-0 Yes [id number] puffs [facility] 90 9-23 with [facility]y of mcg/actuati 00:00: spacer 4 [place] inhaler 00 times a Medica l day for at Branch least 7 days albuterol 2020-0 Yes [id number] 2 puffs [facility] 90 9-23 with [facility]y of mcg/actuati 00:00: spacer 4 [place] inhaler 00 times a Medica l day for at Branch least 7 days albuterol 2020-0 Yes [id number] 2 puffs [facility] 90 9-23 with [facility]y of mcg/actuati 00:00: spacer 4 [place] inhaler 00 times a Medica l day for at Branch least 7 days albuterol 2020-0 Yes [id number] 2 puffs [facility] 90 9-23 with [facility]y of mcg/actuati 00:00: spacer 4 [place] inhaler 00 times a Medica l day for at Branch least 7 days albuterol 2020-0 Yes [id number] 2 puffs [facility] 90 9-23 with [facility] of mcg/actuati 00:00: spacer 4 [place] inhaler 00 times a Medica l day for at Branch least 7 days albuterol 2020-0 Yes [id number] puffs [facility] 90 9-23 with [facility]y of mcg/actuati 00:00: spacer 4 [place] inhaler 00 times a Medica l day for at Branch least 7 days albuterol 2020-0 Yes [id number] 2 puffs [facility] 90 9-23 with [facility]y of mcg/actuati 00:00: spacer 4 [place] inhaler 00 times a Medica l day for at Branch least 7 days albuterol 2020-0 Yes [id number] puffs [facility] 90 9-23 with [facility]y of mcg/actuati 00:00: spacer 4 [place] inhaler 00 times a Medica l day for at Branch least 7 days albuterol 2020-0 Yes [id number] 2 puffs [facility] 90 9-23 with ity of mcg/actuati 00:00: spacer 4 [place] inhaler 00 times a Medica l day for at Branch least 7 days albuterol 2020-0 Yes [id number] 2 puffs [facility] 90 9-23 with [facility]y of mcg/actuati 00:00: spacer 4 [place] inhaler 00 times a Medica l day for at Branch least 7 days albuterol 2020-0 Yes [id number] 2 puffs [facility] 90 9-23 with [facility]y of mcg/actuati 00:00: spacer 4 [place] inhaler 00 times a Medica l day for at Branch least 7 days albuterol 2020-0 Yes [id number] 2 puffs [facility] 90 9-23 with [facility]y of mcg/actuati 00:00: spacer 4 [place] inhaler 00 times a Medica l day for at Branch least 7 days albuterol 2020-0 Yes [id number] 2 puffs [facility] 90 9-23 with ity of mcg/actuati 00:00: spacer 4 [place] inhaler 00 times a Medica l day for at Branch least 7 days albuterol 2020-0 Yes [id number] 2 puffs [facility] 90 9-23 with [facility]y of mcg/actuati 00:00: spacer 4 [place] inhaler 00 times a Medica l day for at Branch least 7 days albuterol 2020-0 Yes [id number] 2 puffs [facility] 90 9-23 with [facility]y of mcg/actuati 00:00: spacer 4 [place] inhaler 00 times a Medica l day for at Branch least 7 days albuterol 2020-0 Yes [id number] 2 puffs [facility] 90 9-23 with ity of mcg/actuati 00:00: spacer 4 [place] inhaler 00 times a Medica l day for at Branch least 7 days albuterol 2020-0 Yes [id number] 2 puffs [facility] 90 9-23 with [facility]y of mcg/actuati 00:00: spacer 4 [place] inhaler 00 times a Medica l day for at Branch least 7 days albuterol 2020-0 Yes [id number] 2 puffs [facility] 90 9-23 with [facility]y of mcg/actuati 00:00: spacer 4 [place] 00 times a Medica l day for at Branch least 7 days albuterol 2020-0 2021- No [id number] puffs [facility] 90 9-23 12-16 with ity of mcg/actuati 00:00: 00:00 spacer 4 [place] inhaler 00 :00 times a Medica l day for at Branch least 7 days albuterol 2020-0 2021- No [id number] 2 puffs [facility] 90 9-23 12-16 with ity of mcg/actuati 00:00: 00:00 spacer 4 [place] inhaler 00 :00 times a Medica l day for at Branch least 7 days albuterol 2021- No [id number] 2 puffs [facility] 90 9-23 12-16 with ity of mcg/actuati 00:00: 00:00 spacer 4 [place] inhaler 00 :00 times a Medica l day for at Branch least 7 days magnesium 0 Yes [id number] TAKE 2 [facility] oxide 400 2-11 TABLETS BY ity of mg (241.3 00:00: MOUTH 4 [place] mg 00 TIMES Medical magnesium) DAILY Branch tablet Alcohol Yes [id number] Use as [facility] ers Swabs (BD 2-11 directed it[facility] of SINGLE USE 00:00: [place] SWABS 00 the skin Medical REGULAR) prior to Branch PadM Trulicity injection or glucose check; ICD-10 E11.65 magnesium Yes [id number] TAKE 2 [facility] oxide 400 2-11 TABLETS BY ity of mg (241.3 00:00: MOUTH 4 [place] mg 00 TIMES Medical magnesium) DAILY Branch tablet Alcohol Yes [id number] Use as [facility] Swabs (BD 2-11 directed it[facility] of SINGLE USE 00:00: to [place] SWABS 00 the skin Medical REGULAR) prior to Branch PadM Trulicity injection or glucose check; ICD-10 E11.65 magnesium Yes [id number] TAKE 2 [facility] oxide 400 2-11 TABLETS BY ity of mg (241.3 00:00: MOUTH 4 [place] mg 00 TIMES Medical magnesium) DAILY Branch tablet Alcohol Yes [id number] Use as [facility] Swabs (BD 2-11 directed ity of SINGLE USE 00:00: to [place] SWABS 00 the skin Medical REGULAR) prior to Branch PadM Trulicity injection or glucose check; ICD-10 E11.65 magnesium Yes [id number] TAKE 2 [facility] [place] oxide 400 2-11 TABLETS BY ity of mg (241.3 00:00: MOUTH 4 [place] mg 00 TIMES Medical magnesium) DAILY Branch tablet Alcohol Yes [id number] Use as [facility] Swabs (BD 2-11 directed ity of SINGLE USE 00:00: to [place] SWABS 00 the skin Medical REGULAR) prior to Branch PadM Trulicity injection or glucose check; ICD-10 E11.65 magnesium Yes [id number] TAKE 2 [facility] oxide 400 2-11 TABLETS BY ity of mg (241.3 00:00: MOUTH 4 [place] mg 00 TIMES Medical magnesium) DAILY Branch tablet Alcohol Yes [id number] Use as [facility] Swabs (BD 2-11 directed ity of SINGLE USE 00:00: to [place] SWABS 00 the skin Medical REGULAR) prior to Branch PadM Trulicity injection or glucose check; ICD-10 E11.65 magnesium Yes [id number] TAKE 2 [facility] oxide 400 2-11 TABLETS BY ity of mg (241.3 00:00: MOUTH 4 [place] mg 00 TIMES Medical magnesium) DAILY Branch tablet Alcohol Yes [id number] Use as [facility] Swabs (BD 2-11 directed ity of SINGLE USE 00:00: to [place] SWABS 00 the skin Medical REGULAR) prior to Branch PadM Trulicity injection or glucose check; ICD-10 E11.65 magnesium Yes [id number] TAKE 2 [facility] oxide 400 2-11 TABLETS BY ity of mg (241.3 00:00: MOUTH 4 [place] mg 00 TIMES Medical magnesium) DAILY Branch tablet Alcohol Yes [id number] Use as [facility] Swabs (BD 2-11 directed ity of SINGLE USE 00:00: to [place] SWABS 00 the skin Medical REGULAR) prior to Branch PadM Trulicity injection or glucose check; ICD-10 E11.65 magnesium 0 Yes [id number] TAKE 2 [facility] oxide 400 2-11 TABLETS BY ity of mg (241.3 00:00: MOUTH 4 [place] mg 00 TIMES Medical magnesium) DAILY Branch tablet Alcohol Yes [id number] Use as [facility] Swabs (BD 2-11 directed ity of SINGLE USE 00:00: to [place] SWABS 00 the skin Medical REGULAR) prior to Branch PadM Trulicity injection or glucose check; ICD-10 E11.65 magnesium 0 Yes [id number] TAKE 2 [facility] oxide 400 2-11 TABLETS BY ity of mg (241.3 00:00: MOUTH 4 [place] mg 00 TIMES Medical magnesium) DAILY Branch tablet Alcohol Yes [id number] Use as [facility] Swabs (BD 2-11 directed ity of SINGLE USE 00:00: to [place] SWABS 00 the skin Medical REGULAR) prior to Branch PadM Trulicity injection or glucose check; ICD-10 E11.65 magnesium 2020-0 Yes [id number] TAKE 2 [facility] oxide 400 2-11 TABLETS BY ity of mg (241.3 00:00: MOUTH 4 [place] mg 00 TIMES Medical magnesium) DAILY Branch tablet Alcohol Yes [id number] Use as [facility] Swabs (BD 2-11 directed ity of SINGLE USE 00:00: to [place] SWABS 00 the skin Medical REGULAR) prior to Branch PadM Trulicity injection or glucose check; ICD-10 E11.65 magnesium 2020-0 Yes [id number] TAKE 2 [facility] oxide 400 2-11 TABLETS BY ity of mg (241.3 00:00: MOUTH 4 [place] mg 00 TIMES Medical magnesium) DAILY Branch tablet Alcohol Yes [id number] Use as [facility] Swabs (BD 2-11 directed ity of SINGLE USE 00:00: to [place] SWABS 00 the skin Medical REGULAR) prior to Branch PadM Trulicity injection or glucose check; ICD-10 E11.65 magnesium 2020-0 Yes [id number] TAKE 2 [facility] oxide 400 2-11 TABLETS BY ity of mg (241.3 00:00: MOUTH 4 [place] mg 00 TIMES Medical magnesium) DAILY Branch tablet Alcohol Yes [id number] Use as [facility] Swabs (BD 2-11 directed ity of SINGLE USE 00:00: to [place] SWABS 00 the skin Medical REGULAR) prior to Branch PadM Trulicity injection or glucose check; ICD-10 E11.65 magnesium 2020-0 Yes [id number] TAKE 2 [place] oxide 400 2-11 TABLETS BY ity of mg (241.3 00:00: MOUTH 4 [place] mg 00 TIMES Medical magnesium) DAILY Branch tablet Alcohol Yes [id number] Use as [facility] Swabs (BD 2-11 directed ity of SINGLE USE 00:00: to [place] SWABS 00 the skin Medical REGULAR) prior to Branch PadM Trulicity injection or glucose check; ICD-10 E11.65 magnesium 2020-0 Yes [id number] TAKE 2 [place] oxide 400 2-11 TABLETS BY ity of mg (241.3 00:00: MOUTH 4 [place] mg 00 TIMES Medical magnesium) DAILY Branch tablet Alcohol Yes [id number] Use as [facility] Swabs (BD 2-11 directed ity of SINGLE USE 00:00: to [place] SWABS 00 the skin Medical REGULAR) prior to Branch PadM Trulicity injection or glucose check; ICD-10 E11.65 magnesium Yes [id number] TAKE 2 [facility] [place] oxide 400 2-11 TABLETS BY ity of mg (241.3 00:00: MOUTH 4 [place] mg 00 TIMES Medical magnesium) DAILY Branch tablet Alcohol Yes [id number] Use as [facility] Swabs (BD 2-11 directed ity of SINGLE USE 00:00: to [place] SWABS 00 the skin Medical REGULAR) prior to Branch PadM Trulicity injection or glucose check; ICD-10 E11.65 magnesium Yes [id number] TAKE 2 [facility] [place] oxide 400 2-11 TABLETS BY ity of mg (241.3 00:00: MOUTH 4 [place] mg 00 TIMES Medical magnesium) DAILY Branch tablet Alcohol Yes [id number] Use as [facility] Swabs (BD 2-11 directed ity of SINGLE USE 00:00: to [place] SWABS 00 the skin Medical REGULAR) prior to Branch PadM Trulicity injection or glucose check; ICD-10 E11.65 magnesium Yes [id number] TAKE 2 [facility] oxide 400 2-11 TABLETS BY ity of mg (241.3 00:00: MOUTH 4 [place] mg 00 TIMES Medical magnesium) DAILY Branch tablet Alcohol Yes [id number] Use as [facility] Swabs (BD 2-11 directed ity of SINGLE USE 00:00: to [place] SWABS 00 the skin Medical REGULAR) prior to Branch PadM Trulicity injection or glucose check; ICD-10 E11.65 magnesium Yes [id number] TAKE 2 [facility] [place] oxide 400 2-11 TABLETS BY ity of mg (241.3 00:00: MOUTH 4 [place] mg 00 TIMES Medical magnesium) DAILY Branch tablet Alcohol Yes [id number] Use as [facility] Swabs (BD 2-11 directed ity of SINGLE USE 00:00: to [place] SWABS 00 the skin Medical REGULAR) prior to Branch PadM Trulicity injection or glucose check; ICD-10 E11.65 magnesium 0 Yes [id number] TAKE 2 [facility] [place] oxide 400 2-11 TABLETS BY ity of mg (241.3 00:00: MOUTH 4 [place] mg 00 TIMES Medical magnesium) DAILY Branch tablet Alcohol Yes [id number] Use as [facility] Swabs (BD 2-11 directed ity of SINGLE USE 00:00: to [place] SWABS 00 the skin Medical REGULAR) prior to Branch PadM Trulicity injection or glucose check; ICD-10 E11.65 magnesium 2020-0 Yes [id number] TAKE 2 [facility] oxide 400 2-11 TABLETS BY ity of mg (241.3 00:00: MOUTH 4 [place] mg 00 TIMES Medical magnesium) DAILY Branch tablet Alcohol Yes [id number] Use as [facility] Swabs (BD 2-11 directed ity of SINGLE USE 00:00: to [place] SWABS 00 the skin Medical REGULAR) prior to Branch PadM Trulicity injection or glucose check; ICD-10 E11.65 magnesium Yes [id number] TAKE 2 [facility] oxide 400 2-11 TABLETS BY ity of mg (241.3 00:00: MOUTH 4 [place] mg 00 TIMES Medical magnesium) DAILY Branch tablet Alcohol Yes [id number] Use as [facility] Swabs (BD 2-11 directed ity of SINGLE USE 00:00: to [place] SWABS 00 the skin Medical REGULAR) prior to Branch PadM Trulicity injection or glucose check; ICD-10 E11.65 magnesium 2020-0 Yes [id number] TAKE 2 [facility] oxide 400 2-11 TABLETS BY ity of mg (241.3 00:00: MOUTH 4 [place] mg 00 TIMES Medical magnesium) DAILY Branch tablet Alcohol Yes [id number] Use as [facility] Swabs (BD 2-11 directed ity of SINGLE USE 00:00: to prep [place] SWABS 00 the skin Medical REGULAR) prior to Branch PadM Trulicity injection or glucose check; ICD-10 E11.65 magnesium 2020-0 Yes [id number] TAKE 2 [facility] oxide 400 2-11 TABLETS BY ity of mg (241.3 00:00: MOUTH 4 [place] mg 00 TIMES Medical magnesium) DAILY Branch tablet Alcohol Yes [id number] Use as [facility] Swabs (BD 2-11 directed ity of SINGLE USE 00:00: to prep [place] SWABS 00 the skin Medical REGULAR) prior to Branch PadM Trulicity injection or glucose check; ICD-10 E11.65 magnesium 2020-0 Yes [id number] TAKE 2 [facility] oxide 400 2-11 TABLETS BY ity of mg (241.3 00:00: MOUTH 4 [place] mg 00 TIMES Medical magnesium) DAILY Branch tablet Alcohol Yes [id number] Use as [facility] Swabs (BD 2-11 directed ity of SINGLE USE 00:00: to prep [place] SWABS 00 the skin Medical REGULAR) prior to Branch PadM Trulicity injection or glucose check; ICD-10 E11.65 magnesium 2020-0 Yes [id number] TAKE 2 [facility] oxide 400 2-11 TABLETS BY ity of mg (241.3 00:00: MOUTH 4 [place] mg 00 TIMES Medical magnesium) DAILY Branch tablet Alcohol Yes [id number] Use as [facility] Swabs (BD 2-11 directed ity of SINGLE USE 00:00: to prep [place] SWABS 00 the skin Medical REGULAR) prior to Branch PadM Trulicity injection or glucose check; ICD-10 E11.65 magnesium 0 Yes [id number] TAKE 2 [facility] [place] oxide 400 2-11 TABLETS BY ity of mg (241.3 00:00: MOUTH 4 [place] mg 00 TIMES Medical magnesium) DAILY Branch tablet Alcohol Yes [id number] Use as [facility] Swabs (BD 2-11 directed ity of SINGLE USE 00:00: to prep [place] SWABS 00 the skin Medical REGULAR) prior to Branch PadM Trulicity injection or glucose check; ICD-10 E11.65 magnesium 2020-0 Yes [id number] TAKE 2 [facility] oxide 400 2-11 TABLETS BY ity of mg (241.3 00:00: MOUTH 4 [place] mg 00 TIMES Medical magnesium) DAILY Branch tablet Alcohol Yes [id number] Use as [facility] Swabs (BD 2-11 directed ity of SINGLE USE 00:00: to prep [place] SWABS 00 the skin Medical REGULAR) prior to Branch PadM Trulicity injection or glucose check; ICD-10 E11.65 magnesium 2020-0 Yes [id number] TAKE 2 [facility] [place] oxide 400 2-11 TABLETS BY ity of mg (241.3 00:00: MOUTH 4 [place] mg 00 TIMES Medical magnesium) DAILY Branch tablet Alcohol Yes [id number] Use as [facility] Swabs (BD 2-11 directed ity of SINGLE USE 00:00: to prep [place] SWABS 00 the skin Medical REGULAR) prior to Branch PadM Trulicity injection or glucose check; ICD-10 E11.65 magnesium 2020-0 Yes [id number] TAKE 2 [facility] [place] oxide 400 2-11 TABLETS BY ity of mg (241.3 00:00: MOUTH 4 [place] mg 00 TIMES Medical magnesium) DAILY Branch tablet Alcohol Yes [id number] Use as [facility] Swabs (BD 2-11 directed ity of SINGLE USE 00:00: to prep [place] SWABS 00 the skin Medical REGULAR) prior to Branch PadM Trulicity injection or glucose check; ICD-10 E11.65 magnesium 2020-0 Yes [id number] TAKE 2 [facility] oxide 400 2-11 TABLETS BY ity of mg (241.3 00:00: MOUTH 4 [place] mg 00 TIMES Medical magnesium) DAILY Branch tablet Alcohol Yes [id number] Use as [facility] Swabs (BD 2-11 directed ity of SINGLE USE 00:00: to prep [place] SWABS 00 the skin Medical REGULAR) prior to Branch PadM Trulicity injection or glucose check; ICD-10 E11.65 magnesium 2020-0 Yes [id number] TAKE 2 [facility] [place] oxide 400 2-11 TABLETS BY ity of mg (241.3 00:00: MOUTH 4 [place] mg 00 TIMES Medical magnesium) DAILY Branch tablet Alcohol Yes [id number] Use as [facility] Swabs (BD 2-11 directed ity of SINGLE USE 00:00: to prep [place] SWABS 00 the skin Medical REGULAR) prior to Branch PadM Trulicity injection or glucose check; ICD-10 E11.65 magnesium 2020-0 Yes [id number] TAKE 2 [facility] oxide 400 2-11 TABLETS BY ity of mg (241.3 00:00: MOUTH 4 [place] mg 00 TIMES Medical magnesium) DAILY Branch tablet Alcohol Yes [id number] Use as [facility] Swabs (BD 2-11 directed ity of SINGLE USE 00:00: to prep [place] SWABS 00 the skin Medical REGULAR) prior to Branch PadM Trulicity injection or glucose check; ICD-10 E11.65 magnesium 2020-0 Yes [id number] TAKE 2 [facility] oxide 400 2-11 TABLETS BY ity of mg (241.3 00:00: MOUTH 4 [place] mg 00 TIMES Medical magnesium) DAILY Branch tablet Alcohol Yes [id number] Use as [facility] Swabs (BD 2-11 directed ity of SINGLE USE 00:00: to prep [place] SWABS 00 the skin Medical REGULAR) prior to Branch PadM Trulicity injection or glucose check; ICD-10 E11.65 magnesium 2020-0 Yes [id number] TAKE 2 [facility] [place] oxide 400 2-11 TABLETS BY ity of mg (241.3 00:00: MOUTH 4 [place] mg 00 TIMES Medical magnesium) DAILY Branch tablet Alcohol Yes [id number] Use as [facility] Swabs (BD 2-11 directed ity of SINGLE USE 00:00: to prep [place] SWABS 00 the skin Medical REGULAR) prior to Branch PadM Trulicity injection or glucose check; ICD-10 E11.65 magnesium Yes [id number] TAKE 2 [facility] [place] oxide 400 2-11 TABLETS BY ity of mg (241.3 00:00: MOUTH 4 [place] mg 00 TIMES Medical magnesium) DAILY Branch tablet Alcohol Yes [id number] Use as [facility] Swabs (BD 2-11 directed ity of SINGLE USE 00:00: to prep [place] SWABS 00 the skin Medical REGULAR) prior to Branch PadM Trulicity injection or glucose check; ICD-10 E11.65 magnesium 2020-0 Yes [id number] TAKE 2 [facility] oxide 400 2-11 TABLETS BY ity of mg (241.3 00:00: MOUTH 4 [place] mg 00 TIMES Medical magnesium) DAILY Branch tablet Alcohol Yes [id number] Use as [facility] Swabs (BD 2-11 directed ity of SINGLE USE 00:00: to prep [place] SWABS 00 the skin Medical REGULAR) prior to Branch PadM Trulicity injection or glucose check; ICD-10 E11.65 magnesium 2020-0 Yes [id number] TAKE 2 [facility] oxide 400 2-11 TABLETS BY ity of mg (241.3 00:00: MOUTH 4 [place] mg 00 TIMES Medical magnesium) DAILY Branch tablet Alcohol Yes [id number] Use as [facility] Swabs (BD 2-11 directed ity of SINGLE USE 00:00: to prep [place] SWABS 00 the skin Medical REGULAR) prior to Branch PadM Trulicity injection or glucose check; ICD-10 E11.65 magnesium 2021-0 Yes [id number] TAKE 2 [facility] oxide 400 2-11 TABLETS BY ity of mg (241.3 00:00: MOUTH 4 [place] mg 00 TIMES Medical magnesium) DAILY Branch tablet Alcohol Yes [id number] Use as [facility] Swabs (BD 2-11 directed ity of SINGLE USE 00:00: to prep [place] SWABS 00 the skin Medical REGULAR) prior to Branch PadM Trulicity injection or glucose check; ICD-10 E11.65 magnesium Yes [id number] TAKE 2 [facility] [place] oxide 400 2-11 TABLETS BY ity of mg (241.3 00:00: MOUTH 4 [place] mg 00 TIMES Medical magnesium) DAILY Branch tablet Alcohol Yes [id number] Use as [facility] Swabs (BD 2-11 directed ity of SINGLE USE 00:00: to prep [place] SWABS 00 the skin Medical REGULAR) prior to Branch PadM Trulicity injection or glucose check; ICD-10 E11.65 magnesium Yes [id number] TAKE 2 [facility] oxide 400 2-11 TABLETS BY ity of mg (241.3 00:00: MOUTH 4 [place] mg 00 TIMES Medical magnesium) DAILY Branch tablet Alcohol Yes [id number] Use as [facility] Swabs (BD 2-11 directed ity of SINGLE USE 00:00: to prep [place] SWABS 00 the skin Medical REGULAR) prior to Branch PadM Trulicity injection or glucose check; ICD-10 E11.65 magnesium Yes [id number] TAKE 2 [facility] [place] oxide 400 2-11 TABLETS BY ity of mg (241.3 00:00: MOUTH 4 [place] mg 00 TIMES Medical magnesium) DAILY Branch tablet Alcohol Yes [id number] Use as [facility] Swabs (BD 2-11 directed ity of SINGLE USE 00:00: to prep [place] SWABS 00 the skin Medical REGULAR) prior to Branch PadM Trulicity injection or glucose check; ICD-10 E11.65 magnesium 0 Yes [id number] TAKE 2 [facility] [place] oxide 400 2-11 TABLETS BY ity of mg (241.3 00:00: MOUTH 4 [place] mg 00 TIMES Medical magnesium) DAILY Branch tablet Alcohol Yes [id number] Use as [facility] Swabs (BD 2-11 directed ity of SINGLE USE 00:00: to prep [place] SWABS 00 the skin Medical REGULAR) prior to Branch PadM Trulicity injection or glucose check; ICD-10 E11.65 magnesium 2020-0 Yes [id number] TAKE 2 [facility] oxide 400 2-11 TABLETS BY ity of mg (241.3 00:00: MOUTH 4 [place] mg 00 TIMES Medical magnesium) DAILY Branch tablet Alcohol Yes [id number] Use as [facility] Swabs (BD 2-11 directed ity of SINGLE USE 00:00: to prep [place] SWABS 00 the skin Medical REGULAR) prior to Branch PadM Trulicity injection or glucose check; ICD-10 E11.65 magnesium 2020-0 Yes [id number] TAKE 2 [facility] oxide 400 2-11 TABLETS BY ity of mg (241.3 00:00: MOUTH 4 [place] mg 00 TIMES Medical magnesium) DAILY Branch tablet Alcohol Yes [id number] Use as [facility] Swabs (BD 2-11 directed ity of SINGLE USE 00:00: to prep [place] SWABS 00 the skin Medical REGULAR) prior to Branch PadM Trulicity injection or glucose check; ICD-10 E11.65 magnesium 2020-0 Yes [id number] TAKE 2 [facility] oxide 400 2-11 TABLETS BY ity of mg (241.3 00:00: MOUTH 4 [place] mg 00 TIMES Medical magnesium) DAILY Branch tablet Alcohol Yes [id number] Use as [facility] Swabs (BD 2-11 directed ity of SINGLE USE 00:00: to prep [place] SWABS 00 the skin Medical REGULAR) prior to Branch PadM Trulicity injection or glucose check; ICD-10 E11.65 magnesium 2020-0 Yes [id number] TAKE 2 [facility] oxide 400 2-11 TABLETS BY ity of mg (241.3 00:00: MOUTH 4 [place] mg 00 TIMES Medical magnesium) DAILY Branch tablet magnesium Yes [id number] TAKE 2 [facility] oxide 400 2-11 TABLETS BY ity of mg (241.3 00:00: MOUTH 4 [place] mg 00 TIMES Medical magnesium) DAILY Branch tablet magnesium 2020- Yes [id number] TAKE 2 [facility] oxide 400 2-11 TABLETS BY ity of mg (241.3 00:00: MOUTH 4 [place] mg 00 TIMES Medical magnesium) DAILY Branch tablet magnesium 2020- Yes [id number] TAKE 2 U nivers oxide 400 2-11 TABLETS BY ity of mg (241.3 00:00: MOUTH 4 [place] mg 00 TIMES Medical magnesium) DAILY Branch tablet magnesium Yes [id number] TAKE 2 U nivers oxide 400 2-11 TABLETS BY ity of mg (241.3 00:00: MOUTH 4 [place] mg 00 TIMES Medical magnesium) DAILY Branch tablet magnesium Yes [id number] TAKE 2 U nivers oxide 400 2-11 TABLETS BY ity of mg (241.3 00:00: MOUTH 4 [place] mg 00 TIMES Medical magnesium) DAILY Branch tablet magnesium Yes [id number] TAKE 2 U nivers oxide 400 2-11 TABLETS BY ity of mg (241.3 00:00: MOUTH 4 [place] mg 00 TIMES Medical magnesium) DAILY Branch tablet magnesium Yes [id number] TAKE 2 U nivers oxide 400 2-11 TABLETS BY ity of mg (241.3 00:00: MOUTH 4 [place] mg 00 TIMES Medical magnesium) DAILY Branch tablet magnesium Yes [id number] TAKE 2 U nivers oxide 400 2-11 TABLETS BY ity of mg (241.3 00:00: MOUTH 4 [place] mg 00 TIMES Medical magnesium) DAILY Branch tablet magnesium Yes [id number] TAKE 2 U nivers oxide 400 2-11 TABLETS BY ity of mg (241.3 00:00: MOUTH 4 [place] mg 00 TIMES Medical magnesium) DAILY Branch tablet magnesium Yes [id number] TAKE 2 U nivers oxide 400 2-11 TABLETS BY ity of mg (241.3 00:00: MOUTH 4 [place] mg 00 TIMES Medical magnesium) DAILY Branch tablet magnesium Yes [id number] TAKE 2 U nivers oxide 400 2-11 TABLETS BY ity of mg (241.3 00:00: MOUTH 4 [place] mg 00 TIMES Medical magnesium) DAILY Branch tablet magnesium 2022- No [id number] TAKE 2 [facility] oxide 400 2-11 02-06 TABLETS BY ity of mg (241.3 00:00: 00:00 [place]TH 4 [place] 00 :00 TIMES Medical magnesium) DAILY Branch tablet Alcohol 2- No [id number] Use as Uni vers Swabs (BD -04-03 directed ity o f SINGLE USE 00:00: 00:00 to prep [place] as SWABS 00 :00 the skin Medical REGULAR) prior to Branch PadM Trulicity injection or glucose check; ICD-10 E11.65 Alcohol 2020-0 2021- No [id number] Use as Uni vers Swabs (BD 05-25 directed ity o f SINGLE USE 00:00: 00:00 to prep [place] as SWABS 00 :00 the skin Medical REGULAR) prior to Branch PadM Trulicity injection or glucose check; ICD-10 E11.65 meloxicam 2020-0 Yes [id number] 15mg Q24H Take 1 M ethodi (Mobic) 15 9-24 tablet (15 st mg tablet 00:00: mg total) Hos phu 00 by mouth l daily as needed for mild pain. gabapentin 2019-0 Yes [id number] Take 1 tab [facility] (NEURONTIN) 9-[address] 300 mg 00:00: Hospita capsule 00 l meloxicam 2019-0 Yes [id number] 15mg Q24H Take 1 M ethodi (Mobic) 15 9-24 tablet (15 st mg tablet 00:00: mg total) [facility] 00 by mouth l daily as needed for mild pain. gabapentin 2019-0 Yes [id number] Take 1 tab [facility] (NEURONTIN) 9-[address] 300 mg 00:00: Hospita capsule 00 l repaglinide 2019-0 Yes .5mg Take 0.5 Un wendy (PRANDIN) 9-08 mg by ity of 0.5 mg 01:37: mouth 2 [place] tablet 03 (two) MD times a Balaji day before n meals. [facility] magnesium 2019-0 Yes magnesium Uni vers 200 mg tab 9 ity of 14:59: 43 MD [facility] atropine 1% 2019-0 Yes atropine 1 Univers ophthalmic 9-02 % eye ity of solution 14:59: drops 43 MD Zamzam [facility] atorvastati 2019-0 Yes 10mg Take 10 mg Univers n (LIPITOR) 902 by mouth. ity of 10 mg 14:59: [place] tablet 43 MD Zamzam [facility] dapaglifloz 2019-0 Yes Farxiga 10 Univers in 9-02 mg tablet ity of (Farxiga) 14:59: 1 [place] 10 [place] tab 43 daily MD [facility] ferrous 2020-0 Yes Other iron 325mg Take 1 U nivers sulfate 325 9-02 deficiency tablet ity of (65 FE) MG 00:00: anemia (325 mg) [place] tablet 00 by mouth at [facility] pantoprazol 2020-0 Yes Take by Met marysoli e sodium 8-[address] (PANTOPRAZO 15:13: Hospit a LE ORAL) 22 l folic 2020-0 Yes [id number] 1{tbl} QD Take 1 Met hodi acid-vit 8- tablet by st B6-vit B12 00:00: mouth Hospit a ([place]) 00 daily. l 2.5-25-1 mg tablet folic 2020-0 Yes [id number] 1{tbl} QD Take 1 Met hodi acid-vit 8- tablet by B6-vit B12 00:00: mouth Hospit a ([place]) 00 daily. l 2.5-25-1 mg tablet FOLBEE 2020-0 Yes TAKE 1 Univers 2.5-25-1 mg 6-20 TABLET BY ity of tab 00:00: MOUTH ONCE [place] 00 DAILY [facility] met[facility]MIN 2020-0 Yes TAKE 1 Univer s (GLUCOPHAGE 6-02 TABLET BY ity of ) 1000 mg 00:00: MOUTH [place] tablet 00 TWICE MD DAILY WITH [facility] MEALS [facility] metoprolol 2020-0 Yes TAKE 1 Unive rs succinate 5-26 TABLET BY ity o f (TOPROL XL) 00:00: MOUTH ONCE [place] 25 mg 24 hr 00 DAILY MD baptiste [facility] VITAMIN D2 2020-0 Yes TAKE ONE Uni vers 1,250 mcg 5-17 CAPSULE BY ity of (50,000 00:00: MOUTH [place] unit) 00 EVERY 2 MD capsule WEEKS WITH Balaji FOOD [facility] cyclobenzap 2020-0 Yes Univer s rine 5-07 ity of (FLEXERIL) 00:00: [place] 5 mg tablet 00 [facility] tiZANidine 2020-0 Yes TAKE 1 2 Uni vers (ZANAFLEX) 3-27 TO 1 (ONE ity of 2 mg tablet 00:00: HALF TO [place] as 00 ONE) TABLET BY [facility] CHIP ackerman EVERY 8 Cancer HOURS Center NEEDED FOR MUSCLE SPASM OR PAIN benzonatate 2020-0 Yes 1{capsu Q.[id number] Take 1 Methodi (TESSALON) 2-28 le} [id number] capsule by st 200 MG 00:00: 3D mouth 3 Hospita capsule 00 (three) l times a day as needed. benzonatate Yes TAKE 1 Univ ers (TESSALON) 2-28 CAPSULE BY ity of 200 mg 00:00: MOUTH [place] capsule 00 THREE MD TIMES Anderso DAILY n NEEDED FOR Cancer COUGH Center fluticasone Yes 2{spray Inhale 2 Univers propionate 2-28 } sprays ity of (FLONASE) 00:00: into each Jefry as 50 00 nostril. mcg/spray Anderso nasal spray n Cancer Center coenzyme 0 Yes 100mg Take 100 Univ ers Q10 100 mg 2-28 mg by ity of capsule 00:00: mouth. [place] 00 MD [facility] dicyclomine Yes 20mg Take 20 mg Univers (BENTYL) 20 2-06 by mouth. ity of mg tablet 00:00: [place] 00 MD [facility] acetaminoph Yes TAKE 1 Univ ers en-codeine 2-05 TABLET BY ity of (TYLENOL 00:00: MOUTH [place] #3) 300 00 EVERY 4 MD mg-30 mg HOURS Anderso tablet NEEDED FOR n PAIN SCALE Cancer 4 6 Center ondansetron Yes DISSOLVE 1 Univers (ZOFRAN-ODT 2-05 TABLET IN ity of ) 4 mg 00:00: MOUTH [place] disintegrat 00 EVERY 8 MD ing tablet HOURS Aaron so NEEDED FOR n NAUSEA AND Cancer VOMITING Center acetaminoph Yes 1{tbl} Take 1 Un wendy en-codeine 2-04 tablet by ity of (TYLENOL 00:00: mouth as [place] #3) 300 00 needed. MD mg-30 mg Anderso tablet n [facility] Center albuterol 2018-04 Yes [id number] 2.5mg Inhale 3 Univers 2.5 mg /3 0-24 mL every 4 ity of mL (0.083 00:00: (four) [place] %) 00 hours as Medical nebulizer needed for Bran ch solution Wheezing or Shortness of Breath. Via nebulizer albuterol 2018-04 Yes [id number] 2.5mg Inhale 3 Univers 2.5 mg /3 0-24 mL every 4 ity of mL (0.083 00:00: (four) [place] %) 00 hours as Medical nebulizer needed for Bran ch solution Wheezing or Shortness of Breath. Via nebulizer albuterol 2018-04 Yes [id number] 2.5mg Inhale 3 Univers 2.5 mg /3 0-24 mL every 4 ity of mL (0.083 00:00: (four) [place] %) 00 hours as Medical nebulizer needed for Bran ch solution Wheezing or Shortness of Breath. Via nebulizer albuterol 2018-04 Yes [id number] 2.5mg Inhale 3 Univers 2.5 mg /3 0-24 mL every 4 ity of mL (0.083 00:00: (four) [place] %) 00 hours as Medical nebulizer needed for Bran ch solution Wheezing or Shortness of Breath. Via nebulizer albuterol 2018-04 Yes [id number] 2.5mg Inhale 3 Univers 2.5 mg /3 0-24 mL every 4 ity of mL (0.083 00:00: (four) [place] %) 00 hours as Medical nebulizer needed for Bran ch solution Wheezing or Shortness of Breath. Via nebulizer albuterol 2018-04 Yes [id number] 2.5mg Inhale 3 Univers 2.5 mg /3 0-24 mL every 4 ity of mL (0.083 00:00: (four) [place] %) 00 hours as Medical nebulizer needed for Bran ch solution Wheezing or Shortness of Breath. Via nebulizer albuterol 2018-04 Yes [id number] 2.5mg Inhale 3 Univers 2.5 mg /3 0-24 mL every 4 ity of mL (0.083 00:00: (four) [place] %) 00 hours as Medical nebulizer needed for Bran ch solution Wheezing or Shortness of Breath. Via nebulizer albuterol 2018-04 Yes [id number] 2.5mg Inhale 3 Univers 2.5 mg /3 0-24 mL every 4 ity of mL (0.083 00:00: (four) [place] %) 00 hours as Medical nebulizer needed for Bran ch solution Wheezing or Shortness of Breath. Via nebulizer albuterol 2018-04 Yes [id number] 2.5mg Inhale 3 Univers 2.5 mg /3 0-24 mL every 4 ity of mL (0.083 00:00: (four) [place] %) 00 hours as Medical nebulizer needed for Bran ch solution Wheezing or Shortness of Breath. Via nebulizer albuterol 2018-04 Yes [id number] 2.5mg Inhale 3 Univers 2.5 mg /3 0-24 mL every 4 ity of mL (0.083 00:00: (four) [place] %) 00 hours as Medical nebulizer needed for Bran ch solution Wheezing or Shortness of Breath. Via nebulizer albuterol 2018-04 Yes [id number] 2.5mg Inhale 3 Univers 2.5 mg /3 0-24 mL every 4 ity of mL (0.083 00:00: (four) [place] %) 00 hours as Medical nebulizer needed for Bran ch solution Wheezing or Shortness of Breath. Via nebulizer albuterol 2018-04 Yes [id number] 2.5mg Inhale 3 Univers 2.5 mg /3 0-24 mL every 4 ity of mL (0.083 00:00: ([facility]) [place] %) 00 hours as Medical nebulizer needed for Bran ch solution Wheezing or Shortness of Breath. Via nebulizer albuterol 2018-04 Yes [id number] 2.5mg Inhale 3 Univers 2.5 mg /3 0-24 mL every 4 ity of mL (0.083 00:00: (four) [place] %) 00 hours as Medical nebulizer needed for Bran ch solution Wheezing or Shortness of Breath. Via nebulizer albuterol 2018-04 Yes [id number] 2.5mg Inhale 3 Univers 2.5 mg /3 0-24 mL every 4 ity of mL (0.083 00:00: (four) [place] %) 00 hours as Medical nebulizer needed for Bran ch solution Wheezing or Shortness of Breath. Via nebulizer albuterol 2018-04 Yes [id number] 2.5mg Inhale 3 Univers 2.5 mg /3 0-24 mL every 4 ity of mL (0.083 00:00: (four) [place] %) 00 hours as Medical nebulizer needed for Bran ch solution Wheezing or Shortness of Breath. Via nebulizer albuterol 2018-04 Yes [id number] 2.5mg Inhale 3 Univers 2.5 mg /3 0-24 mL every 4 ity of mL (0.083 00:00: (four) [place] %) 00 hours as Medical nebulizer needed for Bran ch solution Wheezing or Shortness of Breath. Via nebulizer albuterol 2018-04 Yes [id number] 2.5mg Inhale 3 Univers 2.5 mg /3 0-24 mL every 4 ity of mL (0.083 00:00: (four) [place] %) 00 hours as Medical nebulizer needed for Bran ch solution Wheezing or Shortness of Breath. Via nebulizer albuterol 2018-04 Yes [id number] 2.5mg Inhale 3 Univers 2.5 mg /3 0-24 mL every 4 ity of mL (0.083 00:00: (four) [place] %) 00 hours as Medical nebulizer needed for Bran ch solution Wheezing or Shortness of Breath. Via nebulizer albuterol 2018-04 Yes [id number] 2.5mg Inhale 3 Univers 2.5 mg /3 0-24 mL every 4 ity of mL (0.083 00:00: ([facility]) [place] %) 00 hours as Medical nebulizer needed for Bran ch solution Wheezing or Shortness of Breath. Via nebulizer albuterol 2018-04 Yes [id number] 2.5mg Inhale 3 Univers 2.5 mg /3 0-24 mL every 4 ity of mL (0.083 00:00: (four) [place] %) 00 hours as Medical nebulizer needed for Bran ch solution Wheezing or Shortness of Breath. Via nebulizer albuterol 2018-04 Yes [id number] 2.5mg Inhale 3 Univers 2.5 mg /3 0-24 mL every 4 ity of mL (0.083 00:00: (four) [place] %) 00 hours as Medical nebulizer needed for Bran ch solution Wheezing or Shortness of Breath. Via nebulizer albuterol 2018-04 Yes [id number] 2.5mg Inhale 3 Univers 2.5 mg /3 0-24 mL every 4 ity of mL (0.083 00:00: (four) [place] %) 00 hours as Medical nebulizer needed for Bran ch solution Wheezing or Shortness of Breath. Via nebulizer albuterol 2018-04 Yes [id number] 2.5mg Inhale 3 Univers 2.5 mg /3 0-24 mL every 4 ity of mL (0.083 00:00: (four) [place] %) 00 hours as Medical nebulizer needed for Bran ch solution Wheezing or Shortness of Breath. Via nebulizer albuterol 2018-04 Yes [id number] 2.5mg Inhale 3 Univers 2.5 mg /3 0-24 mL every 4 ity of mL (0.083 00:00: (four) [place] %) 00 hours as Medical nebulizer needed for Bran ch solution Wheezing or Shortness of Breath. Via nebulizer albuterol 2018-04 Yes [id number] 2.5mg Inhale 3 Univers 2.5 mg /3 0-24 mL every 4 ity of mL (0.083 00:00: (four) [place] %) 00 hours as Medical nebulizer needed for Bran ch solution Wheezing or Shortness of Breath. Via nebulizer albuterol 2018-04 Yes [id number] 2.5mg Inhale 3 Univers 2.5 mg /3 0-24 mL every 4 ity of mL (0.083 00:00: (four) [place] %) 00 hours as Medical nebulizer needed for Bran ch solution Wheezing or Shortness of Breath. Via nebulizer albuterol 2018-04 Yes [id number] 2.5mg Inhale 3 Univers 2.5 mg /3 0-24 mL every 4 ity of mL (0.083 00:00: (four) [place] %) 00 hours as Medical nebulizer needed for Bran ch solution Wheezing or Shortness of Breath. Via nebulizer albuterol 2018-04 Yes [id number] 2.5mg Inhale 3 Univers 2.5 mg /3 0-24 mL every 4 ity of mL (0.083 00:00: (four) [place] %) 00 hours as Medical nebulizer needed for Bran ch solution Wheezing or Shortness of Breath. Via nebulizer albuterol 2018-04 Yes [id number] 2.5mg Inhale 3 Univers 2.5 mg /3 0-24 mL every 4 ity of mL (0.083 00:00: (four) [place] %) 00 hours as Medical nebulizer needed for Bran ch solution Wheezing or Shortness of Breath. Via nebulizer albuterol 2018-04 Yes [id number] 2.5mg Inhale 3 Univers 2.5 mg /3 0-24 mL every 4 ity of mL (0.083 00:00: (four) [place] %) 00 hours as Medical nebulizer needed for Bran ch solution Wheezing or Shortness of Breath. Via nebulizer albuterol 2018-04 Yes [id number] 2.5mg Inhale 3 Univers 2.5 mg /3 0-24 mL every 4 ity of mL (0.083 00:00: (four) [place] %) 00 hours as Medical nebulizer needed for Bran ch solution Wheezing or Shortness of Breath. Via nebulizer albuterol 2018-04 Yes [id number] 2.5mg Inhale 3 Univers 2.5 mg /3 0-24 mL every 4 ity of mL (0.083 00:00: (four) [place] %) 00 hours as Medical nebulizer needed for Bran ch solution Wheezing or Shortness of Breath. Via nebulizer albuterol 2018-04 Yes [id number] 2.5mg Inhale 3 Univers 2.5 mg /3 0-24 mL every 4 ity of mL (0.083 00:00: (four) [place] %) 00 hours as Medical nebulizer needed for Bran ch solution Wheezing or Shortness of Breath. Via nebulizer albuterol 2018-04 Yes [id number] 2.5mg Inhale 3 Univers 2.5 mg /3 0-24 mL every 4 ity of mL (0.083 00:00: (four) [place] %) 00 hours as Medical nebulizer needed for Bran ch solution Wheezing or Shortness of Breath. Via nebulizer albuterol 2018-04 Yes [id number] 2.5mg Inhale 3 Univers 2.5 mg /3 0-24 mL every 4 ity of mL (0.083 00:00: (four) [place] %) 00 hours as Medical nebulizer needed for Bran ch solution Wheezing or Shortness of Breath. Via nebulizer albuterol 2018-04 Yes [id number] 2.5mg Inhale 3 Univers 2.5 mg /3 0-24 mL every 4 ity of mL (0.083 00:00: (four) [place] %) 00 hours as Medical nebulizer needed for Bran ch solution Wheezing or Shortness of Breath. Via nebulizer albuterol 2018-04 Yes [id number] 2.5mg Inhale 3 Univers 2.5 mg /3 0-24 mL every 4 ity of mL (0.083 00:00: (four) [place] %) 00 hours as Medical nebulizer needed for Bran ch solution Wheezing or Shortness of Breath. Via nebulizer albuterol 2018-04 Yes [id number] 2.5mg Inhale 3 Univers 2.5 mg /3 0-24 mL every 4 ity of mL (0.083 00:00: (four) [place] %) 00 hours as Medical nebulizer needed for Bran ch solution Wheezing or Shortness of Breath. Via nebulizer albuterol 2018-04 Yes [id number] 2.5mg Inhale 3 Univers 2.5 mg /3 0-24 mL every 4 ity of mL (0.083 00:00: (four) [place] %) 00 hours as Medical nebulizer needed for Bran ch solution Wheezing or Shortness of Breath. Via nebulizer albuterol 2018-04 Yes [id number] 2.5mg Inhale 3 Univers 2.5 mg /3 0-24 mL every 4 ity of mL (0.083 00:00: (four) [place] %) 00 hours as Medical nebulizer needed for Bran ch solution Wheezing or Shortness of Breath. Via nebulizer albuterol 2018-04 Yes [id number] 2.5mg Inhale 3 Univers 2.5 mg /3 0-24 mL every 4 ity of mL (0.083 00:00: (four) [place] %) 00 hours as Medical nebulizer needed for Bran ch solution Wheezing or Shortness of Breath. Via nebulizer albuterol 2018-04 Yes [id number] 2.5mg Inhale 3 Univers 2.5 mg /3 0-24 mL every 4 ity of mL (0.083 00:00: (four) [place] %) 00 hours as Medical nebulizer needed for Bran ch solution Wheezing or Shortness of Breath. Via nebulizer albuterol 2018-04 Yes [id number] 2.5mg Inhale 3 Univers 2.5 mg /3 0-24 mL every 4 ity of mL (0.083 00:00: (four) [place] %) 00 hours as Medical nebulizer needed for Bran ch solution Wheezing or Shortness of Breath. Via nebulizer albuterol 2018-04 Yes [id number] 2.5mg Inhale 3 Univers 2.5 mg /3 0-24 mL every 4 ity of mL (0.083 00:00: (four) [place] %) 00 hours as Medical nebulizer needed for Bran ch solution Wheezing or Shortness of Breath. Via nebulizer albuterol 2018-04 Yes [id number] 2.5mg Inhale 3 Univers 2.5 mg /3 0-24 mL every 4 ity of mL (0.083 00:00: (four) [place] %) 00 hours as Medical nebulizer needed for Bran ch solution Wheezing or Shortness of Breath. Via nebulizer albuterol 2018-04 Yes [id number] 2.5mg Inhale 3 Univers 2.5 mg /3 0-24 mL every 4 ity of mL (0.083 00:00: (four) [place] %) 00 hours as Medical nebulizer needed for Bran ch solution Wheezing or Shortness of Breath. Via nebulizer albuterol 2018-04 Yes [id number] 2.5mg Inhale 3 Univers 2.5 mg /3 0-24 mL every 4 ity of mL (0.083 00:00: (four) [place] %) 00 hours as Medical nebulizer needed for Bran ch solution Wheezing or Shortness of Breath. Via nebulizer albuterol 2018-04 Yes [id number] 2.5mg Inhale 3 Univers 2.5 mg /3 0-24 mL every 4 ity of mL (0.083 00:00: (four) [place] %) 00 hours as Medical nebulizer needed for Bran ch solution Wheezing or Shortness of Breath. Via nebulizer albuterol 2018-04 Yes [id number] 2.5mg Inhale 3 Univers 2.5 mg /3 0-24 mL every 4 ity of mL (0.083 00:00: (four) [place] %) 00 hours as Medical nebulizer needed for Bran ch solution Wheezing or Shortness of Breath. Via nebulizer albuterol 2018-04 Yes [id number] 2.5mg Inhale 3 Univers 2.5 mg /3 0-24 mL every 4 ity of mL (0.083 00:00: (four) [place] %) 00 hours as Medical nebulizer needed for Bran ch solution Wheezing or Shortness of Breath. Via nebulizer albuterol 2018-04 Yes [id number] 2.5mg Inhale 3 Univers 2.5 mg /3 0-24 mL every 4 ity of mL (0.083 00:00: (four) [place] %) 00 hours as Medical nebulizer needed for Bran ch solution Wheezing or Shortness of Breath. Via nebulizer albuterol 2018-04 Yes [id number] 2.5mg Inhale 3 Univers 2.5 mg /3 0-24 mL every 4 ity of mL (0.083 00:00: (four) [place] %) 00 hours as Medical nebulizer needed for Bran ch solution Wheezing or Shortness of Breath. Via nebulizer albuterol 2018-04 Yes [id number] 2.5mg Inhale 3 Univers 2.5 mg /3 0-24 mL every 4 ity of mL (0.083 00:00: (four) [place] %) 00 hours as Medical nebulizer needed for Bran ch solution Wheezing or Shortness of Breath. Via nebulizer albuterol 2018-04 Yes [id number] 2.5mg Inhale 3 Univers 2.5 mg /3 0-24 mL every 4 ity of mL (0.083 00:00: (four) [place] %) 00 hours as Medical nebulizer needed for Bran ch solution Wheezing or Shortness of Breath. Via nebulizer albuterol 2018-04 Yes [id number] 2.5mg Inhale 3 Univers 2.5 mg /3 0-24 mL every 4 ity of mL (0.083 00:00: (four) [place] %) 00 hours as Medical nebulizer needed for Bran ch solution Wheezing or Shortness of Breath. Via nebulizer albuterol 2018-04 Yes [id number] 2.5mg Inhale 3 Univers 2.5 mg /3 0-24 mL every 4 ity of mL (0.083 00:00: (four) [place] %) 00 hours as Medical nebulizer needed for Bran ch solution Wheezing or Shortness of Breath. Via nebulizer albuterol 2018-04 Yes [id number] 2.5mg Inhale 3 Univers 2.5 mg /3 0-24 mL every 4 ity of mL (0.083 00:00: (four) [place] %) 00 hours as Medical nebulizer needed for Bran ch solution Wheezing or Shortness of Breath. Via nebulizer albuterol 2018-04 Yes [id number] 2.5mg Inhale 3 Univers 2.5 mg /3 0-24 mL every 4 ity of mL (0.083 00:00: (four) [place] %) 00 hours as Medical nebulizer needed for Bran ch solution Wheezing or Shortness of Breath. Via nebulizer albuterol 2018-04 Yes [id number] 2.5mg Inhale 3 Univers 2.5 mg /3 0-24 mL every 4 ity of mL (0.083 00:00: (four) [place] %) 00 hours as Medical nebulizer needed for Bran ch solution Wheezing or Shortness of Breath. Via nebulizer albuterol 2018-04 Yes [id number] 2.5mg Inhale 3 Univers 2.5 mg /3 0-24 mL every 4 ity of mL (0.083 00:00: (four) [place] %) 00 hours as Medical nebulizer needed for Bran ch solution Wheezing or Shortness of Breath. Via nebulizer albuterol 2018-04 Yes [id number] 2.5mg Inhale 3 Univers 2.5 mg /3 0-24 mL every 4 ity of mL (0.083 00:00: (four) [place] %) 00 hours as Medical nebulizer needed for Bran ch solution Wheezing or Shortness of Breath. Via nebulizer albuterol 2018-04 Yes [id number] 2.5mg Inhale 3 Univers 2.5 mg /3 0-24 mL every 4 ity of mL (0.083 00:00: ([facility]) [place] %) 00 hours as Medical nebulizer needed for Bran ch solution Wheezing or Shortness of Breath. Via nebulizer albuterol 2018-04 Yes [id number] 2.5mg Inhale 3 Univers 2.5 mg /3 0-24 mL every 4 ity of mL (0.083 00:00: (four) [place] %) 00 hours as Medical nebulizer needed for Bran ch solution Wheezing or Shortness of Breath. Via nebulizer albuterol 2018-04 Yes [id number] 2.5mg Inhale 3 Univers 2.5 mg /3 0-24 mL every 4 ity of mL (0.083 00:00: (four) [place] %) 00 hours as Medical nebulizer needed for Bran ch solution Wheezing or Shortness of Breath. Via nebulizer albuterol 2018-04 Yes [id number] 2.5mg Inhale 3 Univers 2.5 mg /3 0-24 mL every 4 ity of mL (0.083 00:00: (four) [place] %) 00 hours as Medical nebulizer needed for Bran ch solution Wheezing or Shortness of Breath. Via nebulizer albuterol 2018-04 Yes [id number] 2.5mg Inhale 3 Univers 2.5 mg /3 0-24 mL every 4 ity of mL (0.083 00:00: (four) [place] %) 00 hours as Medical nebulizer needed for Bran ch solution Wheezing or Shortness of Breath. Via nebulizer albuterol 2018-04 Yes [id number] 2.5mg Inhale 3 Univers 2.5 mg /3 0-24 mL every 4 ity of mL (0.083 00:00: (four) [place] %) 00 hours as Medical nebulizer needed for Bran ch solution Wheezing or Shortness of Breath. Via nebulizer albuterol 2018-04 Yes [id number] 2.5mg Inhale 3 Univers 2.5 mg /3 0-24 mL every 4 ity of mL (0.083 00:00: (four) [place] %) 00 hours as Medical nebulizer needed for Bran ch solution Wheezing or Shortness of Breath. Via nebulizer albuterol 2018-04 Yes [id number] 2.5mg Inhale 3 Univers 2.5 mg /3 0-24 mL every 4 ity of mL (0.083 00:00: ([facility]) [place] %) 00 hours as Medical nebulizer needed for Bran ch solution Wheezing or Shortness of Breath. Via nebulizer albuterol 2018-04 Yes [id number] 2.5mg Inhale 3 Univers 2.5 mg /3 0-24 mL every 4 ity of mL (0.083 00:00: (four) [place] %) 00 hours as Medical nebulizer needed for Bran ch solution Wheezing or Shortness of Breath. Via nebulizer albuterol 2018-04 Yes [id number] 2.5mg Inhale 3 Univers 2.5 mg /3 0-24 mL every 4 ity of mL (0.083 00:00: (four) [place] %) 00 hours as Medical nebulizer needed for Bran ch solution Wheezing or Shortness of Breath. Via nebulizer albuterol 2018-04 Yes [id number] 2.5mg Inhale 3 Univers 2.5 mg /3 0-24 mL every 4 ity of mL (0.083 00:00: (four) [place] %) 00 hours as Medical nebulizer needed for Bran ch solution Wheezing or Shortness of Breath. Via nebulizer albuterol 2018-04 Yes [id number] 2.5mg Inhale 3 Univers 2.5 mg /3 0-24 mL every 4 ity of mL (0.083 00:00: (four) [place] %) 00 hours as Medical nebulizer needed for Bran ch solution Wheezing or Shortness of Breath. Via nebulizer albuterol 2018-04 Yes [id number] 2.5mg Inhale 3 Univers 2.5 mg /3 0-24 mL every 4 ity of mL (0.083 00:00: (four) [place] %) 00 hours as Medical nebulizer needed for Bran ch solution Wheezing or Shortness of Breath. Via nebulizer albuterol 2018-04 Yes [id number] 2.5mg Inhale 3 Univers 2.5 mg /3 0-24 mL every 4 ity of mL (0.083 00:00: (four) [place] %) 00 hours as Medical nebulizer needed for Bran ch solution Wheezing or Shortness of Breath. Via nebulizer albuterol 2018-04 Yes [id number] 2.5mg Inhale 3 Univers 2.5 mg /3 0-24 mL every 4 ity of mL (0.083 00:00: (four) [place] %) 00 hours as Medical nebulizer needed for Bran ch solution Wheezing or Shortness of Breath. Via nebulizer albuterol 2018-04 Yes [id number] 2.5mg Inhale 3 Univers 2.5 mg /3 0-24 mL every 4 ity of mL (0.083 00:00: (four) [place] %) 00 hours as Medical nebulizer needed for Bran ch solution Wheezing or Shortness of Breath. Via nebulizer albuterol 2018-04 Yes [id number] 2.5mg Inhale 3 Univers 2.5 mg /3 0-24 mL every 4 ity of mL (0.083 00:00: (four) [place] %) 00 hours as Medical nebulizer needed for Bran ch solution Wheezing or Shortness of Breath. Via nebulizer albuterol 2018-04 Yes [id number] 2.5mg Inhale 3 [facility] 2.5 mg /3 0-24 mL every 4 ity of mL (0.083 00:00: (four) [place] %) 00 hours as Medical nebulizer needed for Bran ch solution Wheezing or Shortness of Breath. Via nebulizer albuterol 2018-04 Yes [id number] 2.5mg Inhale 3 [facility] 2.5 mg /3 0-24 mL every 4 ity of mL (0.083 00:00: (four) [place] %) 00 hours as Medical nebulizer needed for Bran ch solution Wheezing or Shortness of Breath. Via nebulizer albuterol 2018-04 Yes [id number] 2.5mg Inhale 3 [facility] 2.5 mg /3 0-24 mL every 4 ity of mL (0.083 00:00: (four) [place] %) 00 hours as Medical nebulizer needed for Bran ch solution Wheezing or Shortness of Breath. Via nebulizer albuterol 2018-04 Yes [id number] 2.5mg Inhale 3 [facility] 2.5 mg /3 0-24 mL every 4 ity of mL (0.083 00:00: (four) [place] %) 00 hours as Medical nebulizer needed for Bran ch solution Wheezing or Shortness of Breath. Via nebulizer albuterol 2018-04 Yes [id number] 2.5mg Inhale 3 [facility] 2.5 mg /3 0-24 mL every 4 ity of mL (0.083 00:00: (four) [place] %) 00 hours as Medical nebulizer needed for Bran ch solution Wheezing or Shortness of Breath. Via nebulizer albuterol 2018-04 Yes [id number] 2.5mg Inhale 3 [facility] 2.5 mg /3 0-24 mL every 4 ity of mL (0.083 00:00: (four) [place] %) 00 hours as Medical nebulizer needed for Bran ch solution Wheezing or Shortness of Breath. Via nebulizer albuterol 2018-04 Yes [id number] 2.5mg Inhale 3 [facility] 2.5 mg /3 0-24 mL every 4 ity of mL (0.083 00:00: (four) [place] %) 00 hours as Medical nebulizer needed for Bran ch solution Wheezing or Shortness of Breath. Via nebulizer albuterol 2018-04 Yes [id number] 2.5mg Inhale 3 [facility] 2.5 mg /3 0-24 mL every 4 [facility]y of mL (0.083 00:00: (four) [place] %) 00 hours as Medical nebulizer needed for Bran ch solution Wheezing or Shortness of Breath. Via nebulizer albuterol 2018-04 Yes [id number] 2.5mg Inhale 3 [facility] 2.5 mg /3 0-24 mL every 4 [facility]y of mL (0.083 00:00: (four) [place] %) 00 hours as Medical nebulizer needed for Bran ch solution Wheezing or Shortness of Breath. Via nebulizer albuterol 2018-04 Yes [id number] 2.5mg Inhale 3 [facility] 2.5 mg /3 0-24 mL every 4 [facility]y of mL (0.083 00:00: (four) [place] %) 00 hours as Medical nebulizer needed for Bran ch solution Wheezing or Shortness of Breath. Via nebulizer albuterol 2018-04 Yes [id number] 2.5mg Inhale 3 [facility] 2.5 mg /3 0-24 mL every 4 ity of mL (0.083 00:00: (four) [place] %) 00 hours as Medical nebulizer needed for Bran ch solution Wheezing or Shortness of Breath. Via nebulizer albuterol 2018-04 Yes [id number] 2.5mg Inhale 3 [facility] 2.5 mg /3 0-24 mL every 4 [facility]y of mL (0.083 00:00: (four) [place] %) 00 hours as Medical nebulizer needed for Bran ch solution Wheezing or Shortness of Breath. Via nebulizer albuterol 2018-04 Yes [id number] 2.5mg Inhale 3 [facility] 2.5 mg /3 0-24 mL every 4 ity of mL (0.083 00:00: (four) [place] %) 00 hours as Medical nebulizer needed for Bran ch solution Wheezing or Shortness of Breath. Via nebulizer albuterol 2018-04 Yes [id number] 2.5mg Inhale 3 [facility] 2.5 mg /3 0-24 mL every 4 ity of mL (0.083 00:00: (four) [place] %) 00 hours as Medical nebulizer needed for Bran ch solution Wheezing or Shortness of Breath. Via nebulizer albuterol 2018-04 Yes [id number] 2.5mg Inhale 3 [facility] 2.5 mg /3 0-24 mL every 4 ity of mL (0.083 00:00: (four) [place] %) 00 hours as Medical nebulizer needed for Bran ch solution Wheezing or Shortness of Breath. Via nebulizer albuterol 2018-04 Yes [id number] 2.5mg Inhale 3 [facility] 2.5 mg /3 0-24 mL every 4 [facility] of mL (0.083 00:00: (four) [place] %) 00 hours as Medical nebulizer needed for Bran ch solution Wheezing or Shortness of Breath. Via nebulizer albuterol 2018-04 Yes [id number] 2.5mg Inhale 3 [facility] 2.5 mg /3 0-24 mL every 4 ity of mL (0.083 00:00: (four) [place] %) 00 hours as Medical nebulizer needed for Bran ch solution Wheezing or Shortness of Breath. Via nebulizer albuterol 2018-04 Yes [id number] 2.5mg Inhale 3 [facility] 2.5 mg /3 0-24 mL every 4 ity of mL (0.083 00:00: (four) [place] %) 00 hours as Medical nebulizer needed for Bran ch solution Wheezing or Shortness of Breath. Via nebulizer albuterol 2018-04 Yes [id number] 2.5mg Inhale 3 [facility] 2.5 mg /3 0-24 mL every 4 ity of mL (0.083 00:00: (four) [place] %) 00 hours as Medical nebulizer needed for Bran ch solution Wheezing or Shortness of Breath. Via nebulizer albuterol 2018-04 Yes USE 1 VIAL [facility] (PROVENTIL, 0-24 IN ity of VENTOLIN) 00:00: NEBULIZER Jefry as 2.5 mg/3 mL 00 EVERY 4 MD (0.083%) HOURS [facility] nebulizer NEEDED FOR n solution WHEEZING [facility] SHORTNESS OF BREATH metoprolol 2018-04 Yes 100mg QD Take 100 [facility] succinate 0-[address] XL 13:15: [facility] (TOPROL-XL) 07 daily. l 100 mg 24 hr tablet dulaglutide 2018-04 Yes INJECT Meth mir[facility] (Trulicity) 0-08 1.5MG (1 st 1.5 mg/0.5 00:00: PEN) [facility] mL 00 SUBCUTANEO l subcutaneou USLY EVERY s pen WEEK dulaglutide 2018-04 Yes 1.5mg Inject 1.5 [facility] (TRULICITY) 0-08 mg under ity of 1.5 mg/0.5 00:00: [place] mL 00 MD injection [facility] LINZESS 290 2018-04 Yes 290ug QD Take 290 [facility] mcg capsule 0-[address] 00:00: [facility] 00 daily. l LINZESS 290 2018-04 Yes 290ug QD Take 290 [facility] mcg capsule 0-[address] 00:00: [facility] 00 daily. l traMADol 2019-0 Yes [id number] 50mg Take 1 [facility] (ULTRAM) 50 9-18 tablet by ity of mg tablet 00:00: mouth [place] 00 every 6 Medical (six) Branch hours as needed for Pain (scale 7-10). traMADol 2019-0 Yes [id number] 50mg Take 1 [facility] (ULTRAM) 50 9-18 tablet by ity of mg tablet 00:00: mouth [place] 00 every 6 Medical (six) Branch hours as needed for Pain (scale 7-10). traMADol 2018-0 Yes [id number] 50mg Take 1 [facility] (ULTRAM) 50 9-18 tablet by ity of mg tablet 00:00: mouth [place] 00 every 6 Medical (six) Branch hours as needed for Pain (scale 7-10). traMADol 2018-0 Yes [id number] 50mg Take 1 [facility] (ULTRAM) 50 9-18 tablet by ity of mg tablet 00:00: mouth [place] 00 every 6 Medical (six) Branch hours as needed for Pain (scale 7-10). traMADol 2018-0 Yes [id number] 50mg Take 1 [facility] (ULTRAM) 50 9-18 tablet by ity of mg tablet 00:00: mouth [place] 00 every 6 Medical (six) Branch hours as needed for Pain (scale 7-10). traMADol 2018-0 Yes [id number] 50mg Take 1 [facility] (ULTRAM) 50 9-18 tablet by ity of mg tablet 00:00: mouth [place] 00 every 6 Medical (six) Branch hours as needed for Pain (scale 7-10). traMADol 2019-0 Yes [id number] 50mg Take 1 [facility] (ULTRAM) 50 9-18 tablet by ity of mg tablet 00:00: mouth [place] 00 every 6 Medical (six) Branch hours as needed for Pain (scale 7-10). traMADol 2019-0 Yes [id number] 50mg Take 1 [facility] (ULTRAM) 50 9-18 tablet by ity of mg tablet 00:00: mouth [place] 00 every 6 Medical (six) Branch hours as needed for Pain (scale 7-10). traMADol 2019-0 Yes [id number] 50mg Take 1 [facility] (ULTRAM) 50 9-18 tablet by ity of mg tablet 00:00: mouth [place] 00 every 6 Medical (six) Branch hours as needed for Pain (scale 7-10). traMADol 2019-0 Yes [id number] 50mg Take 1 [facility] (ULTRAM) 50 9-18 tablet by ity of mg tablet 00:00: mouth [place] 00 every 6 Medical (six) Branch hours as needed for Pain (scale 7-10). traMADol 2019-0 Yes [id number] 50mg Take 1 [facility] (ULTRAM) 50 9-18 tablet by ity of mg tablet 00:00: mouth [place] 00 every 6 Medical (six) Branch hours as needed for Pain (scale 7-10). traMADol 2019-0 Yes [id number] 50mg Take 1 [facility] (ULTRAM) 50 9-18 tablet by ity of mg tablet 00:00: mouth [place] 00 every 6 Medical (six) Branch hours as needed for Pain (scale 7-10). traMADol 2019-0 Yes [id number] 50mg Take 1 [facility] (ULTRAM) 50 9-18 tablet by ity of mg tablet 00:00: mouth [place] 00 every 6 Medical (six) Branch hours as needed for Pain (scale 7-10). traMADol 2019-0 Yes [id number] 50mg Take 1 [facility] (ULTRAM) 50 9-18 tablet by ity of mg tablet 00:00: mouth [place] 00 every 6 Medical (six) Branch hours as needed for Pain (scale 7-10). traMADol 2019-0 Yes [id number] 50mg Take 1 [facility] (ULTRAM) 50 9-18 tablet by ity of mg tablet 00:00: mouth [place] 00 every 6 Medical (six) Branch hours as needed for Pain (scale 7-10). traMADol 2019-0 Yes [id number] 50mg Take 1 [facility] (ULTRAM) 50 9-18 tablet by ity of mg tablet 00:00: mouth [place] 00 every 6 Medical (six) Branch hours as needed for Pain (scale 7-10). traMADol 2019-0 Yes [id number] 50mg Take 1 [facility] (ULTRAM) 50 9-18 tablet by ity of mg tablet 00:00: mouth [place] 00 every 6 Medical (six) Branch hours as needed for Pain (scale 7-10). traMADol 2019-0 Yes [id number] 50mg Take 1 [facility] (ULTRAM) 50 9-18 tablet by ity of mg tablet 00:00: mouth [place] 00 every 6 Medical (six) Branch hours as needed for Pain (scale 7-10). traMADol 2019-0 Yes [id number] 50mg Take 1 [facility] (ULTRAM) 50 9-18 tablet by ity of mg tablet 00:00: mouth [place] 00 every 6 Medical (six) Branch hours as needed for Pain (scale 7-10). traMADol 2019-0 Yes [id number] 50mg Take 1 [facility] (ULTRAM) 50 9-18 tablet by ity of mg tablet 00:00: mouth [place] 00 every 6 Medical (six) Branch hours as needed for Pain (scale 7-10). traMADol 2019-0 Yes [id number] 50mg Take 1 [facility] (ULTRAM) 50 9-18 tablet by ity of mg tablet 00:00: mouth [place] 00 every 6 Medical (six) Branch hours as needed for Pain (scale 7-10). traMADol 2019-0 Yes [id number] 50mg Take 1 [facility] (ULTRAM) 50 9-18 tablet by ity of mg tablet 00:00: mouth [place] 00 every 6 Medical (six) Branch hours as needed for Pain (scale 7-10). traMADol 2019-0 Yes [id number] 50mg Take 1 [facility] (ULTRAM) 50 9-18 tablet by ity of mg tablet 00:00: mouth [place] 00 every 6 Medical (six) Branch hours as needed for Pain (scale 7-10). traMADol 2019-0 Yes [id number] 50mg Take 1 [facility] (ULTRAM) 50 9-18 tablet by ity of mg tablet 00:00: mouth [place] 00 every 6 Medical (six) Branch hours as needed for Pain (scale 7-10). traMADol 2019-0 Yes [id number] 50mg Take 1 [facility] (ULTRAM) 50 9-18 tablet by ity of mg tablet 00:00: mouth [place] 00 every 6 Medical (six) Branch hours as needed for Pain (scale 7-10). traMADol 2019-0 Yes [id number] 50mg Take 1 [facility] (ULTRAM) 50 9-18 tablet by ity of mg tablet 00:00: mouth [place] 00 every 6 Medical (six) Branch hours as needed for Pain (scale 7-10). traMADol 2019-0 Yes [id number] 50mg Take 1 [facility] (ULTRAM) 50 9-18 tablet by ity of mg tablet 00:00: mouth [place] 00 every 6 Medical (six) Branch hours as needed for Pain (scale 7-10). traMADol 2019-0 Yes [id number] 50mg Take 1 [facility] (ULTRAM) 50 9-18 tablet by ity of mg tablet 00:00: mouth [place] 00 every 6 Medical (six) Branch hours as needed for Pain (scale 7-10). traMADol 2019-0 Yes [id number] 50mg Take 1 [facility] (ULTRAM) 50 9-18 tablet by ity of mg tablet 00:00: mouth [place] 00 every 6 Medical (six) Branch hours as needed for Pain (scale 7-10). traMADol 2019-0 Yes [id number] 50mg Take 1 [facility] (ULTRAM) 50 9-18 tablet by ity of mg tablet 00:00: mouth [place] 00 every 6 Medical (six) Branch hours as needed for Pain (scale 7-10). traMADol 2019-0 Yes [id number] 50mg Take 1 [facility] (ULTRAM) 50 9-18 tablet by ity of mg tablet 00:00: mouth [place] 00 every 6 Medical (six) Branch hours as needed for Pain (scale 7-10). traMADol 2019-0 Yes [id number] 50mg Take 1 [facility] (ULTRAM) 50 9-18 tablet by ity of mg tablet 00:00: mouth [place] 00 every 6 Medical (six) Branch hours as needed for Pain (scale 7-10). traMADol 2019-0 Yes [id number] 50mg Take 1 [facility] (ULTRAM) 50 9-18 tablet by ity of mg tablet 00:00: mouth [place] 00 every 6 Medical (six) Branch hours as needed for Pain (scale 7-10). traMADol 2019-0 Yes [id number] 50mg Take 1 [facility] (ULTRAM) 50 9-18 tablet by ity of mg tablet 00:00: mouth [place] 00 every 6 Medical (six) Branch hours as needed for Pain (scale 7-10). traMADol 2019-0 Yes [id number] 50mg Take 1 [facility] (ULTRAM) 50 9-18 tablet by ity of mg tablet 00:00: mouth [place] 00 every 6 Medical (six) Branch hours as needed for Pain (scale 7-10). traMADol 2019-0 Yes [id number] 50mg Take 1 [facility] (ULTRAM) 50 9-18 tablet by ity of mg tablet 00:00: mouth [place] 00 every 6 Medical (six) Branch hours as needed for Pain (scale 7-10). traMADol 2019-0 Yes [id number] 50mg Take 1 [facility] (ULTRAM) 50 9-18 tablet by ity of mg tablet 00:00: mouth [place] 00 every 6 Medical (six) Branch hours as needed for Pain (scale 7-10). traMADol 2019-0 Yes [id number] 50mg Take 1 [facility] (ULTRAM) 50 9-18 tablet by ity of mg tablet 00:00: mouth [place] 00 every 6 Medical (six) Branch hours as needed for Pain (scale 7-10). traMADol 2019-0 Yes [id number] 50mg Take 1 [facility] (ULTRAM) 50 9-18 tablet by ity of mg tablet 00:00: mouth [place] 00 every 6 Medical (six) Branch hours as needed for Pain (scale 7-10). traMADol 2019-0 Yes [id number] 50mg Take 1 [facility] (ULTRAM) 50 9-18 tablet by ity of mg tablet 00:00: mouth [place] 00 every 6 Medical (six) Branch hours as needed for Pain (scale 7-10). traMADol 2019-0 Yes [id number] 50mg Take 1 [facility] (ULTRAM) 50 9-18 tablet by ity of mg tablet 00:00: mouth [place] 00 every 6 Medical (six) Branch hours as needed for Pain (scale 7-10). traMADol 2019-0 Yes [id number] 50mg Take 1 [facility] (ULTRAM) 50 9-18 tablet by ity of mg tablet 00:00: mouth [place] 00 every 6 Medical (six) Branch hours as needed for Pain (scale 7-10). traMADol 2019-0 Yes [id number] 50mg Take 1 [facility] (ULTRAM) 50 9-18 tablet by ity of mg tablet 00:00: mouth [place] 00 every 6 Medical (six) Branch hours as needed for Pain (scale 7-10). traMADol 2019-0 Yes [id number] 50mg Take 1 [facility] (ULTRAM) 50 9-18 tablet by ity of mg tablet 00:00: mouth [place] 00 every 6 Medical (six) Branch hours as needed for Pain (scale 7-10). traMADol 2019-0 Yes [id number] 50mg Take 1 [facility] (ULTRAM) 50 9-18 tablet by ity of mg tablet 00:00: mouth [place] 00 every 6 Medical (six) Branch hours as needed for Pain (scale 7-10). traMADol 2019-0 Yes [id number] 50mg Take 1 [facility] (ULTRAM) 50 9-18 tablet by ity of mg tablet 00:00: mouth [place] 00 every 6 Medical (six) Branch hours as needed for Pain (scale 7-10). traMADol 2019-0 Yes [id number] 50mg Take 1 [facility] (ULTRAM) 50 9-18 tablet by ity of mg tablet 00:00: mouth [place] 00 every 6 Medical (six) Branch hours as needed for Pain (scale 7-10). traMADol 2019-0 Yes [id number] 50mg Take 1 [facility] (ULTRAM) 50 9-18 tablet by ity of mg tablet 00:00: mouth [place] 00 every 6 Medical (six) Branch hours as needed for Pain (scale 7-10). traMADol 2019-0 Yes [id number] 50mg Take 1 [facility] (ULTRAM) 50 9-18 tablet by ity of mg tablet 00:00: mouth [place] 00 every 6 Medical (six) Branch hours as needed for Pain (scale 7-10). traMADol 2019-0 Yes [id number] 50mg Take 1 [facility] (ULTRAM) 50 9-18 tablet by ity of mg tablet 00:00: mouth [place] 00 every 6 Medical (six) Branch hours as needed for Pain (scale 7-10). traMADol 2019-0 Yes [id number] 50mg Take 1 [facility] (ULTRAM) 50 9-18 tablet by ity of mg tablet 00:00: mouth [place] 00 every 6 Medical (six) Branch hours as needed for Pain (scale 7-10). traMADol 2019-0 Yes [id number] 50mg Take 1 [facility] (ULTRAM) 50 9-18 tablet by ity of mg tablet 00:00: mouth [place] 00 every 6 Medical (six) Branch hours as needed for Pain (scale 7-10). traMADol 2019-0 Yes [id number] 50mg Take 1 [facility] (ULTRAM) 50 9-18 tablet by ity of mg tablet 00:00: mouth [place] 00 every 6 Medical (six) Branch hours as needed for Pain (scale 7-10). traMADol 2019- Yes [id number] 50mg Take 1 [facility] (ULTRAM) 50 9-18 tablet by ity of mg tablet 00:00: mouth [place] 00 every 6 Medical (six) Branch hours as needed for Pain (scale 7-10). traMADol 2018-0 Yes [id number] 50mg Take 1 [facility] (ULTRAM) 50 9-18 tablet by ity of mg tablet 00:00: mouth [place] 00 every 6 Medical (six) Branch hours as needed for Pain (scale 7-10). traMADol 2018-0 Yes [id number] 50mg Take 1 [facility] (ULTRAM) 50 9-18 tablet by ity of mg tablet 00:00: mouth [place] 00 every 6 Medical (six) Branch hours as needed for Pain (scale 7-10). traMADol 2018-0 Yes [id number] 50mg Take 1 [facility] (ULTRAM) 50 9-18 tablet by ity of mg tablet 00:00: mouth [place] 00 every 6 Medical (six) Branch hours as needed for Pain (scale 7-10). traMADol 2018-0 Yes [id number] 50mg Take 1 [facility] (ULTRAM) 50 9-18 tablet by ity of mg tablet 00:00: mouth [place] 00 every 6 Medical (six) Branch hours as needed for Pain (scale 7-10). traMADol 2019-0 Yes [id number] 50mg Take 1 [facility] (ULTRAM) 50 9-18 tablet by ity of mg tablet 00:00: mouth [place] 00 every 6 Medical (six) Branch hours as needed for Pain (scale 7-10). traMADol 2019-0 Yes [id number] 50mg Take 1 [facility] (ULTRAM) 50 9-18 tablet by ity of mg tablet 00:00: mouth [place] 00 every 6 Medical (six) Branch hours as needed for Pain (scale 7-10). traMADol 3- No [id number] 50mg Take 1 U nivers (ULTRAM) 50 9-18 02-18 tablet by it y of mg tablet 00:00: 00:00 mouth [place] 00 :00 every 6 Medical (six) Branch hours as needed for Pain (scale 7-10). NIFEdipine Yes 60mg QD Take 60 mg [facility] (ADALAT 8-[address] [facility]) 60 MG 00:00: daily. [facility] 24 hr 00 l tablet NIFEdipine Yes 60mg QD Take 60 mg [facility] (ADALAT 8-[address] [facility]) 60 MG 00:00: daily. [facility] 24 hr 00 l tablet NIFEdipine Yes TAKE 1 Un[facility] (ADALAT CC) 8-28 TABLET BY ity of 60 MG 24 hr 00:00: MOUTH ONCE [place] tablet 00 DAILY MD Zamzam [facility] glimepiride Yes 1 tablet [facility] (AMARYL) 4 8-[address] [facility] tablet 00:00: with [facility]osp[facility] 00 breakfast, l 1/2 tablet po qPM with dinner glimepiride Yes 1 tablet [facility] (AMARYL) 4 8-[address] MG tablet 00:00: with [facility]osp[facility] 00 breakfast, l 1/2 tablet po qPM with dinner RESTASIS Yes Univers 0.05 % 8-14 ity of ophthalmic 00:00: [place] emulsion 00 MD Zamzam a[facility] glimepiride Yes Univer s (AMARYL) 2 7-29 ity of mg tablet 00:00: [place] 00 MD Zamzam a[facility] omeprazole Yes TAKE 1 Unive rs (PriLOSEC) 7-22 CAPSULE BY ity of 40 MG 00:00: MOUTH ONCE [place] capsule 00 DAILY MD Zamzam a[facility] ergocalcife Yes TAKE 1 Meth mirian rol 6-[address] (VITAMIN 00:00: MOUTH [facility]osp[facility] D2) 50,000 00 EVERY TWO l unit WEEKS WITH capsule FOOD ergocalcife Yes TAKE 1 [facility] mirian rol 6-[address] (VITAMIN 00:00: MOUTH [facility]osp[facility] D2) 50,000 00 EVERY TWO l unit WEEKS WITH capsule FOOD magnesium Yes TAKE 2 [facility] oxide 4-[address] (MAG-OX) 00:00: MOUTH 4 Hospit a 400 mg 00 TIMES l (241.3 mg DAILY magnesium) tablet magnesium 2019-0 Yes TAKE 2 [facility] oxide 4-[address] (MAG-OX) 00:00: MOUTH 4 Hospit a 400 mg 00 TIMES l (241.3 mg DAILY magnesium) tablet metFORMIN 2019-0 Yes 1000mg Q.5D Take 1,000 [facility] (GLUCOPHAGE 3-[address] ) 1,000 mg 00:00: mouth 2 [facility] tablet 00 (two) l times a day. metFORMIN 2019-0 Yes 1000mg Q.5D Take 1,000 [facility] (GLUCOPHAGE 3-[address] ) 1,000 mg 00:00: mouth 2 [facility] tablet 00 (two) l times a day. lancets 33 2019-0 Yes [id number] Use as [facility] gauge Misc 3-06 directed. ity of 00:00: E11.21. [place] 00 Check once Medical daily Branch lancets 33 2019-0 Yes [id number] Use as [facility] gauge Misc 3-06 directed. ity of 00:00: E11.21. [place] 00 Check once Medical daily Branch lancets 33 2019-0 Yes [id number] Use as [facility] gauge Misc 3-06 directed. ity of 00:00: E11.. [place] 00 Check once Medical daily Branch lancets 33 2019-0 Yes [id number] Use as [facility] gauge Misc 3-06 directed. ity of 00:00: E11.21. [place] 00 Check once Medical daily Branch lancets 33 2019-0 Yes [id number] Use as [facility] gauge Misc 3-06 directed. ity of 00:00: E11.21. [place] 00 Check once Medical daily Branch lancets 33 2019-0 Yes [id number] Use as [facility] gauge Misc 3-06 directed. ity of 00:00: E11.21. [place] 00 Check once Medical daily Branch lancets 33 2019-0 Yes [id number] Use as [facility] gauge Misc 3-06 directed. ity of 00:00: E11.21. [place] 00 Check once Medical daily Branch lancets 33 2019-0 Yes [id number] Use as [facility] gauge Misc 3-06 directed. ity of 00:00: E11.21. [place] 00 Check once Medical daily Branch lancets 33 2019-0 Yes [id number] Use as [facility] gauge Misc 3-06 directed. ity of 00:00: E11.21. [place] 00 Check once Medical daily Branch lancets 33 2019-0 Yes [id number] Use as [facility] gauge Misc 3-06 directed. ity of 00:00: E11.21. [place] 00 Check once Medical daily Branch lancets 33 2019-0 Yes [id number] Use as [facility] gauge Misc 3-06 directed. ity of 00:00: E11.21. [place] 00 Check once Medical daily Branch lancets 33 2019-0 Yes [id number] Use as [facility] gauge Misc 3-06 directed. ity of 00:00: E11.21. [place] 00 Check once Medical daily Branch lancets 33 2019-0 Yes [id number] Use as [facility] gauge Misc 3-06 directed. ity of 00:00: E11.. [place] 00 Check once Medical daily Branch lancets 33 2019-0 Yes [id number] Use as [facility] gauge Misc 3-06 directed. ity of 00:00: E11.. [place] 00 Check once Medical daily Branch lancets 33 2019-0 Yes [id number] Use as [facility] gauge Misc 3-06 directed. ity of 00:00: E11.. [place] 00 Check once Medical daily Branch lancets 33 2019-0 Yes [id number] Use as [facility] gauge Misc 3-06 directed. ity of 00:00: E11.. [place] 00 Check once Medical daily Branch lancets 33 2019-0 Yes [id number] Use as Univers gauge Misc 3-06 directed. ity of 00:00: E11.. [place] 00 Check once Medical daily Branch lancets 33 2019-0 Yes [id number] Use as Univers gauge Misc 3-06 directed. ity of 00:00: E11.21. [place] 00 Check once Medical daily Branch lancets 33 2019-0 Yes [id number] Use as Univers gauge Misc 3-06 directed. ity of 00:00: E11.21. [place] 00 Check once Medical daily Branch lancets 33 2019-0 Yes [id number] Use as Univers gauge Misc 3-06 directed. ity of 00:00: E11.21. [place] 00 Check once Medical daily Branch lancets 33 2019-0 Yes [id number] Use as Univers gauge Misc 3-06 directed. ity of 00:00: E11.21. [place] 00 Check once Medical daily Branch lancets 33 2019-0 Yes [id number] Use as Univers gauge Misc 3-06 directed. ity of 00:00: E11.21. [place] 00 Check once Medical daily Branch lancets 33 2019-0 Yes [id number] Use as Univers gauge Misc 3-06 directed. ity of 00:00: E11.21. [place] 00 Check once Medical daily Branch lancets 33 2019-0 Yes [id number] Use as Univers gauge Misc 3-06 directed. ity of 00:00: E11.21. [place] 00 Check once Medical daily Branch lancets 33 2019-0 Yes [id number] Use as Univers gauge Misc 3-06 directed. ity of 00:00: E11.21. [place] 00 Check once Medical daily Branch lancets 33 2019-0 Yes [id number] Use as Univers gauge Misc 3-06 directed. ity of 00:00: E11.. [place] 00 Check once Medical daily Branch lancets 33 2019-0 Yes [id number] Use as Univers gauge Misc 3-06 directed. ity of 00:00: E11.. [place] 00 Check once Medical daily Branch lancets 33 2019-0 Yes [id number] Use as [facility] gauge Misc 3-06 directed. ity of 00:00: E11.. [place] 00 Check once Medical daily Branch lancets 33 2019-0 Yes [id number] Use as [facility] gauge Misc 3-06 directed. ity of 00:00: E11.. [place] 00 Check once Medical daily Branch lancets 33 2019-0 Yes [id number] Use as [facility] gauge Misc 3-06 directed. ity of 00:00: E11.. [place] 00 Check once Medical daily Branch lancets 33 2019-0 Yes [id number] Use as [facility] gauge Misc 3-06 directed. ity of 00:00: E11.21. [place] 00 Check once Medical daily Branch lancets 33 2019-0 Yes [id number] Use as [facility] gauge Misc 3-06 directed. ity of 00:00: E11.21. [place] 00 Check once Medical daily Branch lancets 33 2019-0 Yes [id number] Use as [facility] gauge Misc 3-06 directed. ity of 00:00: E11.21. [place] 00 Check once Medical daily Branch lancets 33 2019-0 Yes [id number] Use as Univers gauge Misc 3-06 directed. ity of 00:00: E11.21. [place] 00 Check once Medical daily Branch lancets 33 2019-0 Yes [id number] Use as Univers gauge Misc 3-06 directed. ity of 00:00: E11.21. [place] 00 Check once Medical daily Branch lancets 33 2019-0 Yes [id number] Use as [facility] gauge Misc 3-06 directed. ity of 00:00: E11.21. [place] 00 Check once Medical daily Branch lancets 33 2019-0 Yes [id number] Use as [facility] gauge Misc 3-06 directed. ity of 00:00: E11.21. [place] 00 Check once Medical daily Branch lancets 33 2019-0 Yes [id number] Use as [facility] gauge Misc 3-06 directed. ity of 00:00: E11.. [place] 00 Check once Medical daily Branch lancets 33 2019-0 Yes [id number] Use as [facility] gauge Misc 3-06 directed. ity of 00:00: E11.. [place] 00 Check once Medical daily Branch lancets 33 2019-0 Yes [id number] Use as [facility] gauge Misc 3-06 directed. ity of 00:00: E11.. [place] 00 Check once Medical daily Branch lancets 33 2019-0 Yes [id number] Use as [facility] gauge Misc 3-06 directed. ity of 00:00: E11.. [place] 00 Check once Medical daily Branch lancets 33 2019-0 Yes [id number] Use as Univers gauge Misc 3-06 directed. ity of 00:00: E11.. [place] 00 Check once Medical daily Branch lancets 33 2019-0 Yes [id number] Use as Univers gauge Misc 3-06 directed. ity of 00:00: E11.21. [place] 00 Check once Medical daily Branch lancets 33 2019-0 Yes [id number] Use as Univers gauge Misc 3-06 directed. ity of 00:00: E11.21. [place] 00 Check once Medical daily Branch lancets 33 2019-0 Yes [id number] Use as Univers gauge Misc 3-06 directed. ity of 00:00: E11.21. [place] 00 Check once Medical daily Branch lancets 33 2019-0 Yes [id number] Use as Univers gauge Misc 3-06 directed. ity of 00:00: E11.21. [place] 00 Check once Medical daily Branch lancets 33 2019-0 Yes [id number] Use as Univers gauge Misc 3-06 directed. ity of 00:00: E11.. 00 Check once Medical daily Branch lancets 33 2019-0 Yes [id number] Use as Univers gauge Misc 3-06 directed. ity of 00:00: E11.. 00 Check once Medical daily Branch lancets 33 2019-0 Yes [id number] Use as Univers gauge Misc 3-06 directed. ity of 00:00: E11.. 00 Check once Medical daily Branch lancets 33 2019-0 Yes [id number] Use as Univers gauge Misc 3-06 directed. ity of 00:00: E11. 00 Check once Medical daily Branch lancets 33 2019-0 Yes [id number] Use as Univers gauge Misc 3-06 directed. ity of 00:00: E11.. 00 Check once Medical daily Branch lancets 33 2019-0 Yes [id number] Use as Univers gauge Misc 3-06 directed. ity of 00:00: .. [place] 00 Check once Medical daily Branch lancets 33 2019-0 Yes [id number] Use as Univers gauge Misc 3-06 directed. ity of 00:00: E11.. [place] 00 Check once Medical daily Branch lancets 33 2019-0 Yes [id number] Use as Univers gauge Misc 3-06 directed. ity of 00:00: E11.. 00 Check once Medical daily Branch lancets 33 2019-0 Yes [id number] Use as Univers gauge Misc 3-06 directed. ity of 00:00: E11.. 00 Check once Medical daily Branch lancets 33 2019-0 Yes [id number] Use as Univers gauge Misc 3-06 directed. ity of 00:00: E11.. 00 Check once Medical daily Branch lancets 33 2019-0 2023- No [id number] Use as Univers gauge Misc 3-06 02-06 directed. ity of 00:00: 00:00 E11.21. [place] 00 :00 Check once Medical daily Branch rosuvastati 2019-0 Yes TAKE 1 [facility] mirian n (CRESTOR) 2-[address] 20 MG 00:00: [facility] BEDTIME l STOP TAKING ATORVASTAT IN rosuvastati 2019-0 Yes TAKE 1 [facility] mirian n (CRESTOR) 2-[address] 20 MG 00:00: [facility]OUTH AT [facility] tablet 00 BEDTIME l STOP TAKING ATORVASTAT IN inhalationa 2019-0 Yes [id number] [facility] spacing 1-11 substitute ity of device 00:00: other spacing [place] [employer] Branch inhalationa 2019-0 Yes [id number] [facility] vers [facility] spacing 1-11 substitute ity of device 00:00: other spacing [place] [employer] Branch inhalationa 2019-0 Yes [id number] [facility] vers l spacing 1-11 substitute ity of device 00:00: other spacing [place] [employer] Branch inhalationa 2019-0 Yes [id number] [facility] vers [facility] spacing 1-11 substitute ity of device 00:00: other spacing [place] [employer] Branch inhalationa 2019-0 Yes [id number] [facility] vers [facility] spacing 1-11 substitute ity of device 00:00: other spacing [place] [employer] Branch inhalationa 2019-0 Yes [id number] [facility] vers [facility] spacing 1-11 substitute ity of device 00:00: other spacing [place] [employer] Branch inhalationa 2019-0 Yes [id number] [facility] vers [facility] spacing 1-11 substitute ity of device 00:00: other spacing [place] [employer] Branch inhalationa 2019-0 Yes [id number] [facility] vers [facility] spacing 1-11 substitute ity of device 00:00: other spacing [place] [employer] Branch inhalationa 2019-0 Yes [id number] [facility] vers [facility] spacing 1-11 substitute ity of device 00:00: other spacing [place] [employer] Branch inhalationa 2019-0 Yes [id number] [facility] vers [facility] spacing 1-11 substitute ity of device 00:00: other spacing [place] [employer] Branch inhalationa 2019-0 Yes [id number] [facility] vers [facility] spacing 1-11 substitute ity of device 00:00: other spacing [place] [employer] Branch inhalationa 2019-0 Yes [id number] [facility] vers [facility] spacing 1-11 substitute ity of device 00:00: other spacing [place] [employer] Branch inhalationa 2019-0 Yes [id number] [facility] vers [facility] spacing 1-11 substitute ity of device 00:00: other spacing [place] [employer] Branch inhalationa 2019-0 Yes [id number] [facility] vers [facility] spacing 1-11 substitute ity of device 00:00: other spacing [place] [employer] Branch inhalationa 2019-0 Yes [id number] [facility] vers [facility] spacing 1-11 substitute ity of device 00:00: other spacing [place] [employer] Branch inhalationa 2019-0 Yes [id number] [facility] vers [facility] spacing 1-11 substitute ity of device 00:00: other spacing [place] [employer] Branch inhalationa 2019-0 Yes [id number] [facility] vers [facility] spacing 1-11 substitute ity of device 00:00: other spacing [place] [employer] Branch inhalationa 2019-0 Yes [id number] [facility] vers [facility] spacing 1-11 substitute ity of device 00:00: other spacing [place] [employer] Branch inhalationa 2019-0 Yes [id number] [facility] vers [facility] spacing 1-11 substitute ity of device 00:00: other spacing [place] [employer] Branch inhalationa 2019-0 Yes [id number] [facility] vers [facility] spacing 1-11 substitute ity of device 00:00: other spacing [place] [employer] Branch inhalationa 2019-0 Yes [id number] [facility] vers [facility] spacing 1-11 substitute ity of device 00:00: other spacing [place] [employer] Branch inhalationa 2019-0 Yes [id number] [facility] vers [facility] spacing 1-11 substitute ity of device 00:00: other spacing [place] [employer] Branch inhalationa 2019-0 Yes [id number] [facility] vers [facility] spacing 1-11 substitute ity of device 00:00: other spacing [place] [employer] Branch inhalationa 2019-0 Yes [id number] [facility] vers [facility] spacing 1-11 substitute ity of device 00:00: other spacing [place] [employer] Branch inhalationa 2019-0 Yes [id number] [facility] vers [facility] spacing 1-11 substitute ity of device 00:00: other spacing [place] [employer] Branch inhalationa 2019-0 Yes [id number] [facility] vers [facility] spacing 1-11 substitute ity of device 00:00: other spacing [place] [employer] Branch inhalationa 2019-0 Yes [id number] [facility] vers [facility] spacing 1-11 substitute ity of device 00:00: other spacing [place] [employer] Branch inhalationa 2019-0 Yes [id number] [facility] vers [facility] spacing 1-11 substitute ity of device 00:00: other spacing [place] [employer] Branch inhalationa 2019-0 Yes [id number] [facility] vers [facility] spacing 1-11 substitute ity of device 00:00: other spacing [place] [employer] Branch inhalationa 2019-0 Yes [id number] [facility] vers [facility] spacing 1-11 substitute ity of device 00:00: other spacing [place] [employer] Branch inhalationa 2019-0 Yes [id number] [facility] vers [facility] spacing 1-11 substitute ity of device 00:00: other spacing [place] [employer] Branch inhalationa 2019-0 Yes [id number] [facility] vers [facility] spacing 1-11 substitute ity of device 00:00: other spacing [place] [employer] Branch inhalationa 2019-0 Yes [id number] [facility] vers l spacing 1-11 substitute ity of device 00:00: other spacing [place] [employer] Branch inhalationa 2019-0 Yes [id number] [facility] vers l spacing 1-11 substitute ity of device 00:00: other spacing [place] [employer] Branch inhalationa 2019-0 Yes [id number] [facility] vers l spacing 1-11 substitute ity of device 00:00: other spacing [place] [employer] Branch inhalationa 2019-0 Yes [id number] [facility] vers [facility] spacing 1-11 substitute ity of device 00:00: other spacing [place] [employer] Branch inhalationa 2019-0 Yes [id number] [facility] vers [facility] spacing 1-11 substitute ity of device 00:00: other spacing [place] [employer] Branch inhalationa 2019-0 Yes [id number] [facility] vers l spacing 1-11 substitute ity of device 00:00: other spacing [place] [employer] Branch inhalationa 2019-0 Yes [id number] [facility] vers [facility] spacing 1-11 substitute ity of device 00:00: other spacing [place] [employer] Branch inhalationa 2019-0 Yes [id number] [facility] vers [facility] spacing 1-11 substitute ity of device 00:00: other spacing [place] [employer] Branch inhalationa 2019-0 Yes [id number] [facility] vers [facility] spacing 1-11 substitute ity of device 00:00: other spacing [place] [employer] Branch inhalationa 2019-0 Yes [id number] [facility] vers [facility] spacing 1-11 substitute ity of device 00:00: other spacing [place] [employer] Branch inhalationa 2019-0 Yes [id number] [facility] vers [facility] spacing 1-11 substitute ity of device 00:00: other spacing [place] [employer] Branch inhalationa 2019-0 Yes [id number] [facility] vers [facility] spacing 1-11 substitute ity of device 00:00: other spacing [place] [employer] Branch inhalationa 2019-0 Yes [id number] [facility] vers [facility] spacing 1-11 substitute ity of device 00:00: other spacing [place] [employer] Branch inhalationa 2019-0 Yes [id number] [facility] vers [facility] spacing 1-11 substitute ity of device 00:00: other spacing [place] [employer] Branch inhalationa 2019-0 Yes [id number] [facility] vers [facility] spacing 1-11 substitute ity of device 00:00: other spacing [place] [employer] Branch inhalationa 2019-0 Yes [id number] [facility] vers [facility] spacing 1-11 substitute ity of device 00:00: other spacing [place] [employer] Branch inhalationa 2019-0 Yes [id number] [facility] vers l spacing 1-11 substitute ity of device 00:00: other spacing [place] [employer] Branch inhalationa 2019-0 Yes [id number] [facility] vers l spacing 1-11 substitute ity of device 00:00: other spacing [place] [employer] Branch inhalationa 2019-0 Yes [id number] [facility] vers l spacing 1-11 substitute ity of device 00:00: other spacing [place] [employer] Branch inhalationa 2019-0 Yes [id number] [facility] vers [facility] spacing 1-11 substitute ity of device 00:00: other spacing [place] [employer] Branch inhalationa 2019-0 Yes [id number] [facility] vers l spacing 1-11 substitute ity of device 00:00: other spacing [place] [employer] Branch inhalationa 2019-0 Yes [id number] [facility] vers [facility] spacing 1-11 substitute ity of device 00:00: other spacing [place] [employer] Branch inhalationa 2019-0 Yes [id number] [facility] vers l spacing 1-11 substitute ity of device 00:00: other spacing [place] [employer] Branch inhalationa 2019-0 Yes [id number] [facility] vers [facility] spacing 1-11 substitute ity of device 00:00: other spacing [place] [employer] Branch inhalationa 2019-0 Yes [id number] [facility] vers [facility] spacing 1-11 substitute ity of device 00:00: other spacing [place] [employer] Branch inhalationa 2019-0 Yes [id number] [facility] vers [facility] spacing 1-11 substitute ity of device 00:00: other spacing [place] [employer] Branch inhalationa 2019-0 Yes [id number] [facility] vers [facility] spacing 1-11 substitute ity of device 00:00: other spacing [place] [employer] Branch inhalationa 2019-0 Yes [id number] [facility] vers l spacing 1-11 substitute ity of device 00:00: other spacing [place] [employer] Branch inhalationa 2019-0 Yes [id number] [facility] vers l spacing 1-11 substitute ity of device 00:00: other spacing [place] [employer] Branch inhalationa 2019-0 Yes [id number] [facility] vers [facility] spacing 1-11 substitute ity of device 00:00: other spacing [place] [employer] Branch inhalationa 2019-0 Yes [id number] [facility] vers [facility] spacing 1-11 substitute ity of device 00:00: other spacing [place] [employer] Branch inhalationa 2019-0 Yes [id number] [facility] vers l spacing 1-11 substitute ity of device 00:00: other spacing [place] [employer] Branch inhalationa 2019-0 Yes [id number] [facility] vers l spacing 1-11 substitute ity of device 00:00: other spacing [place] [employer] Branch inhalationa 2019-0 Yes [id number] [facility] vers l spacing 1-11 substitute ity of device 00:00: other spacing [place] [employer] Branch inhalationa 2019-0 Yes [id number] [facility] vers l spacing 1-11 substitute ity of device 00:00: other spacing [place] [employer] Branch inhalationa 2019-0 Yes [id number] [facility] vers l spacing 1-11 substitute ity of device 00:00: other spacing [place] [employer] Branch inhalationa 2019-0 Yes [id number] [facility] vers l spacing 1-11 substitute ity of device 00:00: other spacing [place] [employer] Branch inhalationa 2019-0 Yes [id number] [facility] vers l spacing 1-11 substitute ity of device 00:00: other spacing [place] [employer] Branch inhalationa 2019-0 Yes [id number] [facility] vers l spacing 1-11 substitute ity of device 00:00: other spacing [place] [employer] Branch inhalationa 2019-0 Yes [id number] [facility] vers l spacing 1-11 substitute ity of device 00:00: other spacing [place] [employer] Branch inhalationa 2019-0 Yes [id number] [facility] vers l spacing 1-11 substitute ity of device 00:00: other spacing [place] [employer] Branch inhalationa 2019-0 Yes [id number] [facility] vers l spacing 1-11 substitute ity of device 00:00: other spacing [place] [employer] Branch inhalationa 2019-0 Yes [id number] [facility] vers l spacing 1-11 substitute ity of device 00:00: other spacing [place] [employer] Branch inhalationa 2019-0 Yes [id number] [facility] vers l spacing 1-11 substitute ity of device 00:00: other spacing [place] [employer] Branch inhalationa 2019-0 Yes [id number] [facility] vers l spacing 1-11 substitute ity of device 00:00: other spacing [place] [employer] Branch inhalationa 2019-0 Yes [id number] [facility] vers l spacing 1-11 substitute ity of device 00:00: other spacing [place] [employer] Branch inhalationa 2019-0 Yes [id number] [facility] vers l spacing 1-11 substitute ity of device 00:00: other spacing [place] [employer] Branch inhalationa 2019-0 Yes [id number] [facility] vers l spacing 1-11 substitute ity of device 00:00: other spacing [place] [employer] Branch inhalationa 2019-0 Yes [id number] [facility] vers l spacing 1-11 substitute ity of device 00:00: other spacing [place] [employer] Branch inhalationa 2019-0 Yes [id number] [facility] vers l spacing 1-11 substitute ity of device 00:00: other spacing [place] [employer] Branch inhalationa 2019-0 Yes [id number] [facility] vers l spacing 1-11 substitute ity of device 00:00: other spacing [place] [employer] Branch inhalationa 2019-0 Yes [id number] [facility] vers l spacing 1-11 substitute ity of device 00:00: other spacing [place] [employer] Branch inhalationa 2019-0 Yes [id number] [facility] vers l spacing 1-11 substitute ity of device 00:00: other spacing [place] [employer] Branch inhalationa 2019-0 Yes [id number] [facility] vers l spacing 1-11 substitute ity of device 00:00: other spacing [place] [employer] Branch inhalationa 2019-0 Yes [id number] [facility] vers l spacing 1-11 substitute ity of device 00:00: other spacing [place] [employer] Branch inhalationa 2019-0 Yes [id number] [facility] vers l spacing 1-11 substitute ity of device 00:00: other spacing [place] [employer] Branch inhalationa 2019-0 Yes [id number] [facility] vers l spacing 1-11 substitute ity of device 00:00: other spacing [place] [employer] Branch inhalationa 2019-0 Yes [id number] [facility] vers l spacing 1-11 substitute ity of device 00:00: other spacing [place] [employer] Branch inhalationa 0 Yes [id number] May [facility] vers l spacing 1-11 substitute ity of device 00:00: other spacing [place] [employer] Branch inhalationa 0 Yes [id number] [facility] vers l spacing 1-11 substitute ity of device 00:00: other spacing [place] [employer] Branch inhalationa 0 Yes [id number] [facility] vers l spacing 1-11 substitute ity of device 00:00: other spacing [place] [employer] Branch inhalationa 0 Yes [id number] [facility] vers l spacing 1-11 substitute ity of device 00:00: other spacing [place] [employer] Branch inhalationa Yes [id number] [facility] vers l spacing 1-11 substitute ity of device 00:00: other spacing [place] [employer] Branch inhalationa Yes [id number] May [facility] vers l spacing 1-11 substitute ity of device 00:00: other [facility] [employer] [employer] Branch inhalationa Yes [id number] May [facility] vers l spacing 1-11 substitute ity of device 00:00: other [facility] [employer] [employer] Branch cyanocobala Yes 500ug Take 500 U nivers min 2-21 mcg by ity of (VITAMIN 00:00: mouth. [place] -12) 500 00 MD mcg tablet [facility] metFORMIN 2014-04 Yes 1000mg Take 1,[address] [facility] (GLUCOPHAGE 0-02 mg by [facility] ) 1000 MG 14:59: mouth 2 Medic al tablet 12 (two) Center times daily with breakfast and dinner. metoprolol 2014-04 Yes 100mg QD Take [address] (TOPROL-XL) 0-02 [facility] 100 MG 24 14:59: mouth Medical hr tablet 12 daily. [place] aspirin 81 2014-04 Yes 81mg QD Take [address] MG chewable 0-02 by mouth [facility] tablet 14:59: daily. [address] esomeprazol 2014-04 Yes 20mg QD Take [address] [facility] (NEXIUM) 0-02 by mouth [facility] 20 MG 14:59: daily. Medical [address] lisinopril 2014-04 Yes 10mg QD Take [address] (PRINIVIL,Z 0-02 by mouth Luke [facility] ESTRIL) 10 14:59: daily. Medic al MG tablet 12 Center glipiZIDE 2014-04 Yes 10mg Take [address] (GLUCOTROL) 0-02 by mouth 2 Zoey kes 10 MG 14:59: (two) Medical tablet 12 times Center daily before meals. atorvastati 2014-04 Yes 10mg QD Take [address] [facility] [facility] (LIPITOR) 0-02 by mouth Luke [facility] 10 MG 14:59: daily. Medical tablet 12 Center Immunizations Ordered Filled Immunization Date Status Comments [facility] Immunization Name Name Influenza Virus 2022-06-18 Completed [facility] Vaccine,quad 00:00:00 [place] [facility] 65+ Influenza Virus 2022-06-18 Completed Universit y of Vaccine,quad 00:00:00 [place] [facility] Branch 65+ Influenza Virus 2022-06-18 Completed Universit y of Vaccine,quad 00:00:00 [place] [facility] Free Branch 65+ Influenza Virus 2022-06-18 Completed Universit y of Vaccine,quad 00:00:00 [place] [facility] Im,[facility] Free Branch 65+ Influenza Virus 2022-06-18 Completed Universit y of Vaccine,quad 00:00:00 [place] [facility] Free Branch 65+ Influenza Virus 2022-06-18 Completed Universit y of Vaccine,quad 00:00:00 [place] [facility] Im,preserve Free Branch 65+ Influenza Virus 2022-06-18 Completed Universit y of Vaccine,quad 00:00:00 [place] [facility] Free Branch 65+ Influenza Virus 2022-06-18 Completed Universit y of Vaccine,quad 00:00:00 [place] [facility] Im,[facility] Free Branch 65+ Influenza Virus 2022-06-18 Completed Universit y of Vaccine,quad 00:00:00 [place] [facility] Free Branch 65+ Influenza Virus 2022-06-18 Completed Universit y of Vaccine,quad 00:00:00 [place] [facility] Im,preserve Free Branch 65+ Influenza Virus 2022-06-18 Completed Universit y of Vaccine,quad 00:00:00 [place] [facility] Im,preserve Free Branch 65+ Influenza Virus 2022-06-18 Completed Universit y of Vaccine,quad 00:00:00 [place] [facility] Im,[facility] Free Branch 65+ Influenza Virus 2022-06-18 Completed Universit y of Vaccine,quad 00:00:00 [place] [facility],preserve Free Branch 65+ Influenza Virus 2022-06-18 Completed Universit y of Vaccine,quad 00:00:00 [place] [facility] Im,[facility] Free Branch 65+ Influenza Virus 2022-06-18 Completed Universit y of Vaccine,quad 00:00:00 [place] [facility] Im,preserve Free Branch 65+ Influenza Virus 2022-06-18 Completed Universit y of Vaccine,quad 00:00:00 [place] [facility] Im,[facility] Free Branch 65+ Influenza Virus 2022-06-18 Completed Universit y of Vaccine,quad 00:00:00 [place] [facility] Free Branch 65+ Influenza Virus 2022-06-18 Completed Universit y of Vaccine,quad 00:00:00 [place] [facility] Branch 65+ Influenza Virus 2022-06-18 Completed Universit y of Vaccine,quad 00:00:00 [place] [facility] Im,preserve Free Branch 65+ Influenza Virus 2022-06-18 Completed Universit y of Vaccine,quad 00:00:00 [place] [facility] Im,preserve Free Branch 65+ Influenza Virus 2022-06-18 Completed Universit y of Vaccine,quad 00:00:00 [place] [facility] Free Branch 65+ Influenza Virus 2022-06-18 Completed Universit y of Vaccine,quad 00:00:00 [place] [facility] Branch 65+ Influenza Virus 2022-06-18 Completed Universit y of Vaccine,quad 00:00:00 [place] [facility] Branch 65+ Influenza Virus 2022-06-18 Completed Universit y of Vaccine,quad 00:00:00 [place] [facility] Free Branch 65+ Influenza Virus 2022-06-18 Completed Universit y of Vaccine,quad 00:00:00 [place] [facility] Free Branch 65+ Influenza Virus 2022-06-18 Completed Universit y of Vaccine,quad 00:00:00 [place] [facility] Free Branch 65+ Influenza Virus 2022-06-18 Completed Universit y of Vaccine,quad 00:00:00 [place] [facility] Branch 65+ Influenza Virus 2022-06-18 Completed Universit y of Vaccine,quad 00:00:00 [place] [facility] Branch 65+ Remdesivir 2022-06-11 Completed University of 00:00:00 [facility] Branch Remdesivir 2022-06-11 Completed University of 00:00:00 [facility] Branch Remdesivir 2022-06-11 Completed University of 00:00:00 [facility] Branch Remdesivir 2022-06-11 Completed University of 00:00:00 [facility] Branch Remdesivir 2022-06-11 Completed University of 00:00:00 [facility] Branch Remdesivir 2022-06-11 Completed University of 00:00:00 [facility] Branch Remdesivir 2022-06-11 Completed University of 00:00:00 [facility] Branch Remdesivir 2022-06-11 Completed University of 00:00:00 [facility] Branch Remdesivir 2022-06-11 Completed University of 00:00:00 [facility] Branch Remdesivir 2022-06-11 Completed University of 00:00:00 [facility] Branch Remdesivir 2022-06-11 Completed University of 00:00:00 [facility] Branch Remdesivir 2022-06-11 Completed University of 00:00:00 [facility] Branch Remdesivir 2022-06-11 Completed University of 00:00:00 [facility] Branch Remdesivir 2022-06-11 Completed University of 00:00:00 [facility] Branch Remdesivir 2022-06-11 Completed University of 00:00:00 [facility] Branch Remdesivir 2022-06-11 Completed University of 00:00:00 [facility] Branch Remdesivir 2022-06-11 Completed University of 00:00:00 [facility] Branch Remdesivir 2022-06-11 Completed University of 00:00:00 [facility] Branch Remdesivir 2022-06-11 Completed University of 00:00:00 [facility] Branch Remdesivir 2022-06-11 Completed University of 00:00:00 [facility] Branch Remdesivir 2022-06-11 Completed University of 00:00:00 [facility] Branch Remdesivir 2022-06-11 Completed University of 00:00:00 [facility] Branch Remdesivir 2022-06-11 Completed University of 00:00:00 [facility] Branch Remdesivir 2022-06-11 Completed University of 00:00:00 [facility] Branch Remdesivir 2022-06-11 Completed University of 00:00:00 [place] [facility] Remdesivir 2022-06-11 Completed University of 00:00:00 [place] [facility] Remdesivir 2022-06-11 Completed University of 00:00:00 [place] [facility] Remdesivir 2022-06-11 Completed University of 00:00:00 [place] [facility] Remdesivir 2022-06-11 Completed University of 00:00:00 [place] [facility] Remdesivir 2022-06-11 Completed University of 00:00:00 [place] [facility] Remdesivir 2022-06-11 Completed University of 00:00:00 [place] [facility] Remdesivir 2022-06-11 Completed University of 00:00:00 [place] [facility] Remdesivir 2022-06-11 Completed University of 00:00:00 [place] [facility] Remdesivir 2022-06-11 Completed [facility] 00[facility]00:00 [facility] Remdesivir 2022-06-11 Completed [facility] 00:00:00 [facility] Remdesivir 2022-06-10 Completed [facility] 00:00:00 [facility] Remdesivir 2022-06-10 Completed [facility] 00:00:00 [facility] Remdesivir 2022-06-10 Completed [facility] 00:00:00 [facility] Remdesivir 2022-06-10 Completed [facility] 00[facility]00:00 [facility] Remdesivir 2022-06-10 Completed [facility] 00:00:00 [facility] Remdesivir 2022-06-10 Completed [facility] 00:00:00 [facility] Remdesivir 2022-06-10 Completed [facility] 00:00:00 [facility] Remdesivir 2022-06-10 Completed [facility] 00:00:00 [facility] Remdesivir 2022-06-10 Completed [facility] 00:00:00 [facility] Remdesivir 2022-06-10 Completed [facility] 00:00:00 [facility] Remdesivir 2022-06-10 Completed [facility] 00:00:00 [facility] Remdesivir 2022-06-10 Completed [facility] 00:00:00 [facility] Remdesivir 2022-06-10 Completed [facility] 00:00:00 [facility] Remdesivir 2022-06-10 Completed [facility] 00:00:00 [facility] Remdesivir 2022-06-10 Completed [facility] 00:00:00 [facility] Remdesivir 2022-06-10 Completed [facility] 00:00:00 [facility] Remdesivir 2022-06-10 Completed [facility] 00:00:00 [facility] Remdesivir 2022-06-10 Completed [facility] 00:00:00 [facility] Remdesivir 2022-06-10 Completed [facility] 00:00:00 [facility] Remdesivir 2022-06-10 Completed [facility] 00:00:00 [facility] Remdesivir 2022-06-10 Completed [facility] 00:00:00 [facility] Remdesivir 2022-06-10 Completed [facility] 00:00:00 [facility] Remdesivir 2022-06-10 Completed [facility] 00:00:00 [facility] Remdesivir 2022-06-10 Completed [facility] 00:00:00 [facility] Remdesivir 2022-06-10 Completed [facility] 00:00:00 [facility] Remdesivir 2022-06-10 Completed [facility] 00:00:00 [facility] Remdesivir 2022-06-10 Completed [facility] 00:00:00 [facility] Remdesivir 2022-06-10 Completed [facility] 00:00:00 [facility] Remdesivir 2022-06-10 Completed [facility] 00:00:00 [facility] Remdesivir 2022-06-10 Completed [facility] 00:00:00 [facility] Remdesivir 2022-06-10 Completed [facility] 00:00:00 [facility] Remdesivir 2022-06-10 Completed [facility] 00:00:00 [facility] Remdesivir 2022-06-10 Completed [facility] 00:00:00 [facility] Remdesivir 2022-06-10 Completed [facility] 00:00:00 [facility] Remdesivir 2022-06-10 Completed [facility] 00:00:00 [facility] Remdesivir 2022-06-09 Completed [facility] 00:00:00 [facility] Remdesivir 2022-06-09 Completed [facility] 00:00:00 [facility] Remdesivir 2022-06-09 Completed [facility] 00:00:00 [facility] Remdesivir 2022-06-09 Completed [facility] 00:00:00 [facility] Remdesivir 2022-06-09 Completed [facility] 00:00:00 [facility] Remdesivir 2022-06-09 Completed [facility] 00:00:00 [facility] Remdesivir 2022-06-09 Completed [facility] 00:00:00 [facility] Remdesivir 2022-06-09 Completed [facility] 00:00:00 [facility] Remdesivir 2022-06-09 Completed [facility] 00:00:00 [facility] Remdesivir 2022-06-09 Completed [facility] 00:00:00 [facility] Remdesivir 2022-06-09 Completed [facility] 00:00:00 [facility] Remdesivir 2022-06-09 Completed [facility] 00:00:00 [facility] Remdesivir 2022-06-09 Completed [facility] 00:00:00 [facility] Remdesivir 2022-06-09 Completed [facility] 00:00:00 [facility] Remdesivir 2022-06-09 Completed [facility] 00:00:00 [facility] Remdesivir 2022-06-09 Completed [facility] 00:00:00 [facility] Remdesivir 2022-06-09 Completed [facility] 00:00:00 [facility] Remdesivir 2022-06-09 Completed [facility] 00:00:00 [facility] Remdesivir 2022-06-09 Completed [facility] 00:00:00 [facility] Remdesivir 2022-06-09 Completed [facility] 00:00:00 [facility] Remdesivir 2022-06-09 Completed [facility] 00:00:00 [facility] Remdesivir 2022-06-09 Completed [facility] 00:00:00 [facility] Remdesivir 2022-06-09 Completed [facility] 00:00:00 [facility] Remdesivir 2022-06-09 Completed [facility] 00:00:00 [facility] Remdesivir 2022-06-09 Completed [facility] 00:00:00 [facility] Remdesivir 2022-06-09 Completed [facility] 00:00:00 [facility] Remdesivir 2022-06-09 Completed [facility] 00:00:00 [facility] Remdesivir 2022-06-09 Completed [facility] 00:00:00 [facility] Remdesivir 2022-06-09 Completed [facility] 00:00:00 [facility] Remdesivir 2022-06-09 Completed [facility] 00:00:00 [facility] Remdesivir 2022-06-09 Completed [facility] 00:00:00 [facility] Remdesivir 2022-06-09 Completed [facility] 00:00:00 [facility] Remdesivir 2022-06-09 Completed [facility] 00:00:00 [facility] Remdesivir 2022-06-09 Completed [facility] 00:00:00 [facility] Remdesivir 2022-06-09 Completed [facility] 00:00:00 [facility] Remdesivir 2022-06-08 Completed [facility] 00:00:00 [facility] Remdesivir 2022-06-08 Completed [facility] 00:00:00 [facility] Remdesivir 2022-06-08 Completed [facility] 00:00:00 [facility] Remdesivir 2022-06-08 Completed [facility] 00:00:00 [facility] Remdesivir 2022-06-08 Completed [facility] 00:00:00 [facility] Remdesivir 2022-06-08 Completed [facility] 00:00:00 [facility] Remdesivir 2022-06-08 Completed [facility] 00:00:00 [facility] Remdesivir 2022-06-08 Completed [facility] 00:00:00 [facility] Remdesivir 2022-06-08 Completed [facility] 00:00:00 [facility] Remdesivir 2022-06-08 Completed [facility] 00:00:00 [facility] Remdesivir 2022-06-08 Completed [facility] 00:00:00 [facility] Remdesivir 2022-06-08 Completed [facility] 00:00:00 [facility] Remdesivir 2022-06-08 Completed [facility] 00:00:00 [facility] Remdesivir 2022-06-08 Completed [facility] 00:00:00 [facility] Remdesivir 2022-06-08 Completed [facility] 00:00:00 [facility] Remdesivir 2022-06-08 Completed [facility] 00:00:00 [facility] Remdesivir 2022-06-08 Completed [facility] 00:00:00 [facility] Remdesivir 2022-06-08 Completed [facility] 00:00:00 [facility] Remdesivir 2022-06-08 Completed [facility] 00:00:00 [facility] Remdesivir 2022-06-08 Completed [facility] 00:00:00 [facility] Remdesivir 2022-06-08 Completed [facility] 00:00:00 [facility] Remdesivir 2022-06-08 Completed [facility] 00:00:00 [facility] Remdesivir 2022-06-08 Completed [facility] 00:00:00 [facility] Remdesivir 2022-06-08 Completed [facility] 00:00:00 [facility] Remdesivir 2022-06-08 Completed [facility] 00:00:00 [facility] Remdesivir 2022-06-08 Completed [facility] 00:00:00 [facility] Remdesivir 2022-06-08 Completed [facility] 00:00:00 [facility] Remdesivir 2022-06-08 Completed [facility] 00:00:00 [facility] Remdesivir 2022-06-08 Completed [facility] 00:00:00 [facility] Remdesivir 2022-06-08 Completed [facility] 00:00:00 [facility] Remdesivir 2022-06-08 Completed [facility] 00:00:00 [facility] Remdesivir 2022-06-08 Completed [facility] 00:00:00 [facility] Remdesivir 2022-06-08 Completed [facility] 00:00:00 [facility] Remdesivir 2022-06-08 Completed [facility] 00:00:00 [facility] Remdesivir 2022-06-08 Completed [facility] 00:00:00 [facility] Remdesivir 2022-06-07 Completed [facility] 00:00:00 [facility] Remdesivir 2022-06-07 Completed [facility] 00:00:00 [facility] Remdesivir 2022-06-07 Completed [facility] 00:00:00 [facility] Remdesivir 2022-06-07 Completed [facility] 00:00:00 [facility] Remdesivir 2022-06-07 Completed [facility] 00:00:00 [facility] Remdesivir 2022-06-07 Completed [facility] 00:00:00 [facility] Remdesivir 2022-06-07 Completed [facility] 00:00:00 [facility] Remdesivir 2022-06-07 Completed [facility] 00:00:00 [facility] Remdesivir 2022-06-07 Completed [facility] 00:00:00 [facility] Remdesivir 2022-06-07 Completed [facility] 00:00:00 [facility] Remdesivir 2022-06-07 Completed [facility] 00:00:00 [facility] Remdesivir 2022-06-07 Completed [facility] 00:00:00 [facility] Remdesivir 2022-06-07 Completed [facility] 00:00:00 [facility] Remdesivir 2022-06-07 Completed [facility] 00:00:00 [facility] Remdesivir 2022-06-07 Completed [facility] 00:00:00 [facility] Remdesivir 2022-06-07 Completed [facility] 00:00:00 [facility] Remdesivir 2022-06-07 Completed [facility] 00:00:00 [facility] Remdesivir 2022-06-07 Completed [facility] 00:00:00 [facility] Remdesivir 2022-06-07 Completed [facility] 00:00:00 [facility] Remdesivir 2022-06-07 Completed [facility] 00:00:00 [facility] Remdesivir 2022-06-07 Completed [facility] 00:00:00 [facility] Remdesivir 2022-06-07 Completed [facility] 00:00:00 [facility] Remdesivir 2022-06-07 Completed [facility] 00:00:00 [facility] Remdesivir 2022-06-07 Completed [facility] 00:00:00 [facility] Remdesivir 2022-06-07 Completed [facility] 00:00:00 [facility] Remdesivir 2022-06-07 Completed [facility] 00:00:00 [facility] Remdesivir 2022-06-07 Completed [facility] 00:00:00 [facility] Remdesivir 2022-06-07 Completed [facility] 00:00:00 [facility] Remdesivir 2022-06-07 Completed [facility] 00:00:00 [facility] Remdesivir 2022-06-07 Completed [facility] 00:00:00 [facility] Remdesivir 2022-06-07 Completed [facility] 00:00:00 [facility] Remdesivir 2022-06-07 Completed [facility] 00:00:00 [facility] Remdesivir 2022-06-07 Completed [facility] 00:00:00 [facility] Remdesivir 2022-06-07 Completed [facility] 00:00:00 [facility] Remdesivir 2022-06-07 Completed [facility] 00:00:00 [facility] Pneumococcal 20 2021-11-26 Completed [facility] Conjugate, PCV20 00:00:00 [facility] (Prevnar 20) [facility] Pneumococcal 20 2021-11-26 Completed [facility] Conjugate, PCV20 00:00:00 [facility] ([facility] 20) [facility] Pneumococcal 20 2021-11-26 Completed [facility] Conjugate, PCV20 00:00:00 [facility] (Pre[facility]ar 20) [facility] Pneumococcal 20 2021-11-26 Completed [facility] of Conjugate, PCV20 00:00:00 [facility] dical (Prevnar 20) Branch Pneumococcal 20 2021-11-26 Completed [facility] Conjugate, PCV20 00:00:00 [facility] (Prevnar 20) [facility] Pneumococcal 20 2021-11-26 Completed [facility] of Conjugate, PCV20 00:00:00 [facility] dical (Prevnar 20) Branch Pneumococcal 20 2021-11-26 Completed [facility] of Conjugate, PCV20 00:00:00 [facility] dical (Prevnar 20) Branch Pneumococcal 20 2021-11-26 Completed [facility] of Conjugate, PCV20 00:00:00 [facility] dical (Prevnar 20) Branch Pneumococcal 20 2021-11-26 Completed [facility] of Conjugate, PCV20 00:00:00 [facility] dical (Prevnar 20) Branch Pneumococcal 20 2021-11-26 Completed [facility] of Conjugate, PCV20 00:00:00 [facility] dical (Prevnar 20) Branch Pneumococcal 20 2021-11-26 Completed [facility] Conjugate, PCV20 00:00:00 [facility] (Prevnar 20) [facility] Pneumococcal 20 2021-11-26 Completed [facility] of Conjugate, PCV20 00:00:00 [facility] dical (Prevnar 20) Branch Pneumococcal 20 2021-11-26 Completed [facility] Conjugate, PCV20 00:00:00 [facility] (Prevnar 20) Branch Pneumococcal 20 2021-11-26 Completed [facility] of Conjugate, PCV20 00:00:00 [facility] dical (Prevnar 20) Branch Pneumococcal 20 2021-11-26 Completed [facility] of Conjugate, PCV20 00:00:00 [facility] dical (Prevnar 20) Branch Pneumococcal 20 2021-11-26 Completed [facility] Conjugate, PCV20 00:00:00 [facility] (Prevnar 20) Branch Pneumococcal 20 2021-11-26 Completed [facility] Conjugate, PCV20 00:00:00 [facility] (Prevnar 20) Branch Pneumococcal 20 2021-11-26 Completed [facility] Conjugate, PCV20 00:00:00 [facility] (Prevnar 20) Branch Pneumococcal 20 2021-11-26 Completed [facility] Conjugate, PCV20 00:00:00 [facility] (Prevnar 20) Branch Pneumococcal 20 2021-11-26 Completed [facility] Conjugate, PCV20 00:00:00 [facility] (Prevnar 20) Branch Pneumococcal 20 2021-11-26 Completed [facility] Conjugate, PCV20 00:00:00 [facility] (Prevnar 20) Branch Pneumococcal 20 2021-11-26 Completed [facility] Conjugate, PCV20 00:00:00 [facility] (Prevnar 20) Branch Pneumococcal 20 2021-11-26 Completed [facility] Conjugate, PCV20 00:00:00 [facility] (Prevnar 20) Branch Pneumococcal 20 2021-11-26 Completed [facility] Conjugate, PCV20 00:00:00 [facility] (Prevnar 20) Branch Pneumococcal 20 2021-11-26 Completed [facility] Conjugate, PCV20 00:00:00 [facility] (Prevnar 20) Branch Pneumococcal 20 2021-11-26 Completed [facility] Conjugate, PCV20 00:00:00 [facility] (Prevnar 20) Branch Pneumococcal 20 2021-11-26 Completed [facility] Conjugate, PCV20 00:00:00 [facility] (Prevnar 20) Branch Pneumococcal 20 2021-11-26 Completed [facility] Conjugate, PCV20 00:00:00 [facility] (Prevnar 20) Branch Pneumococcal 20 2021-11-26 Completed [facility] Conjugate, PCV20 00:00:00 [facility] (Prevnar 20) Branch Pneumococcal 20 2021-11-26 Completed [facility] Conjugate, PCV20 00:00:00 [facility] (Prevnar 20) Branch Pneumococcal 20 2021-11-26 Completed [facility] Conjugate, PCV20 00:00:00 [facility] (Prevnar 20) [facility] Pneumococcal 20 2021-11-26 Completed [facility] Conjugate, PCV20 00:00:00 [facility] (Prevnar 20) [facility] Pneumococcal 20 2021-11-26 Completed [facility] Conjugate, PCV20 00:00:00 [facility] (Prevnar 20) Branch Pneumococcal 20 2021-11-26 Completed [facility] of Conjugate, PCV20 00:00:00 [facility] dical (Prevnar 20) Branch Pneumococcal 20 2021-11-26 Completed [facility] of Conjugate, PCV20 00:00:00 [facility] dical (Prevnar 20) Branch Pneumococcal 20 2021-11-26 Completed [facility] Conjugate, PCV20 00:00:00 [facility] (Prevnar 20) Branch Pneumococcal 20 2021-11-26 Completed [facility] of Conjugate, PCV20 00:00:00 [facility] dical (Prevnar 20) Branch Pneumococcal 20 2021-11-26 Completed [facility] of Conjugate, PCV20 00:00:00 [facility] dical (Prevnar 20) Branch Pneumococcal 20 2021-11-26 Completed [facility] of Conjugate, PCV20 00:00:00 [facility] dical (Prevnar 20) Branch Pneumococcal 20 2021-11-26 Completed [facility] of Conjugate, PCV20 00:00:00 [facility] dical (Prevnar 20) Branch Pneumococcal 20 2021-11-26 Completed [facility] of Conjugate, PCV20 00:00:00 [facility] dical (Prevnar 20) Branch Pneumococcal 20 2021-11-26 Completed [facility] of Conjugate, PCV20 00:00:00 [facility] dical (Prevnar 20) Branch Pneumococcal 20 2021-11-26 Completed [facility] of Conjugate, PCV20 00:00:00 [facility] dical (Prevnar 20) Branch Pneumococcal 20 2021-11-26 Completed [facility] Conjugate, PCV20 00:00:00 [facility] (Prevnar 20) Branch Pneumococcal 20 2021-11-26 Completed [facility] of Conjugate, PCV20 00:00:00 [facility] dical (Prevnar 20) Branch Pneumococcal 20 2021-11-26 Completed [facility] of Conjugate, PCV20 00:00:00 [facility] dical (Prevnar 20) Branch Pneumococcal 20 2021-11-26 Completed [facility] of Conjugate, PCV20 00:00:00 [facility] dical (Prevnar 20) Branch Pneumococcal 20 2021-11-26 Completed [facility] Conjugate, PCV20 00:00:00 [facility] (Prevnar 20) Branch Pneumococcal 20 2021-11-26 Completed [facility] Conjugate, PCV20 00:00:00 [facility] (Prevnar 20) Branch Pneumococcal 20 2021-11-26 Completed [facility] Conjugate, PCV20 00:00:00 [facility] (Prevnar 20) Branch Pneumococcal 20 2021-11-26 Completed [facility] Conjugate, PCV20 00:00:00 [facility] (Prevnar 20) Branch Pneumococcal 20 2021-11-26 Completed [facility] Conjugate, PCV20 00:00:00 [facility] (Prevnar 20) Branch Pneumococcal 20 2021-11-26 Completed [facility] Conjugate, PCV20 00:00:00 [facility] (Prevnar 20) Branch Pneumococcal 20 2021-11-26 Completed [facility] Conjugate, PCV20 00:00:00 [facility] (Prevnar 20) Branch Pneumococcal 20 2021-11-26 Completed [facility] Conjugate, PCV20 00:00:00 [facility]ical (Prevnar 20) Branch Pneumococcal 20 2021-11-26 Completed [facility] Conjugate, PCV20 00:00:00 [facility] (Prevnar 20) Branch Pneumococcal 20 2021-11-26 Completed [facility] Conjugate, PCV20 00:00:00 [facility] d[facility] (Prevnar 20) Branch Pneumococcal 20 2021-11-26 Completed [facility] Conjugate, PCV20 00:00:00 [facility] (Prevnar 20) Branch Pneumococcal 20 2021-11-26 Completed [facility] Conjugate, PCV20 00:00:00 [facility] (Prevnar 20) Branch Pneumococcal 20 2021-11-26 Completed [facility] Conjugate, PCV20 00:00:00 [facility] (Prevnar 20) Branch Pneumococcal 20 2021-11-26 Completed [facility] Conjugate, PCV20 00:00:00 [facility] (Prevnar 20) Branch Pneumococcal 20 2021-11-26 Completed [facility] Conjugate, PCV20 00:00:00 [facility] (Prevnar 20) Branch Pneumococcal 20 2021-11-26 Completed [facility] Conjugate, PCV20 00:00:00 [facility] (Prevnar 20) Branch Pneumococcal 20 2021-11-26 Completed [facility] Conjugate, PCV20 00:00:00 [facility] (Prevnar 20) Branch Pneumococcal 20 2021-11-26 Completed [facility] Conjugate, PCV20 00:00:00 [facility] (Prevnar 20) Branch Pneumococcal 20 2021-11-26 Completed [facility] Conjugate, PCV20 00:00:00 [facility] (Prevnar 20) Branch Pneumococcal 20 2021-11-26 Completed [facility] Conjugate, PCV20 00:00:00 [facility] (Prevnar 20) Branch Pneumococcal 20 2021-11-26 Completed [facility] Conjugate, PCV20 00:00:00 [facility] (Prevnar 20) Branch Pneumococcal 20 2021-11-26 Completed [facility] Conjugate, PCV20 00:00:00 [facility] (Prevnar 20) Branch Pneumococcal 20 2021-11-26 Completed [facility] Conjugate, PCV20 00:00:00 [facility] (Prevnar 20) Branch Pneumococcal 20 2021-11-26 Completed [facility] Conjugate, PCV20 00:00:00 [facility] (Prevnar 20) Branch Pneumococcal 20 2021-11-26 Completed [facility] Conjugate, PCV20 00:00:00 [facility] (Prevnar 20) Branch Pneumococcal 20 2021-11-26 Completed [facility] Conjugate, PCV20 00:00:00 [facility] (Prevnar 20) Branch Pneumococcal 20 2021-11-26 Completed [facility] Conjugate, PCV20 00:00:00 [facility] (Prevnar 20) Branch Pneumococcal 20 2021-11-26 Completed [facility] Conjugate, PCV20 00:00:00 [facility] (Prevnar 20) Branch Pneumococcal 20 2021-11-26 Completed [facility] Conjugate, PCV20 00:00:00 [facility] (Prevnar 20) Branch Pneumococcal 20 2021-11-26 Completed [facility] Conjugate, PCV20 00:00:00 [facility] (Prevnar 20) Branch Pneumococcal 20 2021-11-26 Completed [facility] Conjugate, PCV20 00:00:00 [place] [facility] (Prevnar 20) [facility] Pneumococcal 20 2021-11-26 Completed [facility] Conjugate, PCV20 00:00:00 [facility] (Prevnar 20) Branch Pneumococcal 20 2021-11-26 Completed [facility] Conjugate, PCV20 00:00:00 [place] [facility] (Prevnar 20) Branch Pneumococcal 20 2021-11-26 Completed [facility] Conjugate, PCV20 00:00:00 [facility] dical (Prevnar 20) Branch Pneumococcal 20 2021-11-26 Completed [facility] Conjugate, PCV20 00:00:00 [facility] dical (Prevnar 20) Branch Pneumococcal 20 2021-11-26 Completed [facility] Conjugate, PCV20 00:00:00 [facility] (Prevnar 20) Branch Pneumococcal 20 2021-11-26 Completed [facility] Conjugate, PCV20 00:00:00 [facility] (Prevnar 20) Branch Pneumococcal 20 2021-11-26 Completed [facility] Conjugate, PCV20 00:00:00 [facility] (Prevnar 20) Branch Pneumococcal 20 2021-11-26 Completed [facility] Conjugate, PCV20 00:00:00 [facility] (Prevnar 20) Branch Pneumococcal 20 2021-11-26 Completed [facility] Conjugate, PCV20 00:00:00 [facility] (Prevnar 20) Branch Pneumococcal 20 2021-11-26 Completed [facility] Conjugate, PCV20 00:00:00 [facility] (Prevnar 20) Branch Pneumococcal 20 2021-11-26 Completed [facility] of Conjugate, PCV20 00:00:00 [facility] (Prevnar 20) Branch Pneumococcal 20 2021-11-26 Completed [facility] of Conjugate, PCV20 00:00:00 [facility] (Prevnar 20) Branch Pneumococcal 20 2021-11-26 Completed [facility] Conjugate, PCV20 00:00:00 [place] [facility] (Prevnar 20) Branch Pneumococcal 20 2021-11-26 Completed [facility] of Conjugate, PCV20 00:00:00 [facility] (Prevnar 20) Branch Pneumococcal 20 2021-11-26 Completed [facility] of Conjugate, PCV20 00:00:00 [facility] (Prevnar 20) Branch Pneumococcal 20 2021-11-26 Completed [facility] of Conjugate, PCV20 00:00:00 [facility] (Prevnar 20) Branch Pneumococcal 20 2021-11-26 Completed [facility] Conjugate, PCV20 00:00:00 [place] [facility] (Prevnar 20) Branch Pneumococcal 20 2021-11-26 Completed [facility] of Conjugate, PCV20 00:00:00 [facility] (Prevnar 20) Branch Influenza Virus 2021-04-02 Completed [facility] Vaccine,quad 00:00:00 [facility] 65+ Influenza Virus 2021-04-02 Completed [facility] Vaccine,quad 00:00:00 [facility] 65+ Influenza Virus 2021-04-02 Completed [facility] Vaccine,quad 00:00:00 [facility] 65+ Influenza Virus 2021-04-02 Completed [facility] Vaccine,quad 00:00:00 [facility] 65+ Influenza Virus 2021-04-02 Completed [facility] Vaccine,quad 00:00:00 [facility] 65+ Influenza Virus 2021-04-02 Completed [facility] Vaccine,quad 00:00:00 [facility] 65+ Influenza Virus 2021-04-02 Completed [facility] Vaccine,quad 00:00:00 [facility] 65+ Influenza Virus 2021-04-02 Completed [facility] Vaccine,quad 00:00:00 [facility] 65+ Influenza Virus 2021-04-02 Completed [facility] Vaccine,quad 00:00:00 [facility] 65+ Influenza Virus 2021-04-02 Completed [facility] Vaccine,quad 00:00:00 [facility] 65+ Influenza Virus 2021-04-02 Completed [facility] Vaccine,quad 00:00:00 [facility] 65+ Influenza Virus 2021-04-02 Completed [facility] Vaccine,quad 00:00:00 [facility] 65+ Influenza Virus 2021-04-02 Completed [facility] Influenza Virus 2021-04-02 Completed [facility]:00[facility]00 [facility] 65+ Influenza Virus 2021-04-02 Completed [facility] 00:00:00 [facility] 65+ Influenza Virus 2021-04-02 Completed [facility] 00:00:00 [facility] 65+ Influenza Virus 2021-04-02 Completed [facility] 00:00:00 [facility] 65+ Influenza Virus 2021-04-02 Completed [facility] 00:00:00 [facility] 65+ Influenza Virus 2021-04-02 Completed [facility] 00:00:00 [facility] 65+ Influenza Virus 2021-04-02 Completed [facility] 00:00:00 [facility] 65+ Influenza Virus 2021-04-02 Completed [facility] 00:00:00 [facility] 65+ Influenza Virus 2021-04-02 Completed [facility] 00:00:00 [facility] 65+ Influenza Virus 2021-04-02 Completed [facility] 00:00:00 [facility] 65+ Influenza Virus 2021-04-02 Completed [facility] 00:00:00 [facility] 65+ Influenza Virus 2021-04-02 Completed [facility] 00:00:00 [facility] 65+ Influenza Virus 2021-04-02 Completed [facility] 00:00:00 [facility] 65+ Influenza Virus 2021-04-02 Completed [facility] 00:00:00 [facility] 65+ Influenza Virus 2021-04-02 Completed [facility] 00:00:00 [facility] 65+ Influenza Virus 2021-04-02 Completed [facility] 00:00:00 [facility] 65+ Influenza Virus 2021-04-02 Completed [facility] 00:00:00 [facility] 65+ Influenza Virus 2021-04-02 Completed [facility] 00:00:00 [facility] 65+ Influenza Virus 2021-04-02 Completed [facility] 00:00:00 [facility] 65+ Influenza Virus 2021-04-02 Completed [facility] 00:00:00 [facility] 65+ Influenza Virus 2021-04-02 Completed [facility] 00:00:00 [facility] 65+ Influenza Virus 2021-04-02 Completed [facility] 00:00:00 [facility] 65+ Influenza Virus 2021-04-02 Completed [facility] 00:00:00 [facility] 65+ Influenza Virus 2021-04-02 Completed [facility] 00:00:00 [facility] 65+ Influenza Virus 2021-04-02 Completed [facility] 00:00:00 [facility] 65+ Influenza Virus 2021-04-02 Completed [facility] 00:00:00 [facility] 65+ Influenza Virus 2021-04-02 Completed [facility] 00:00:00 [facility] 65+ Influenza Virus 2021-04-02 Completed [facility] 00:00:00 [facility] 65+ Influenza Virus 2021-04-02 Completed [facility] 00:00:00 [facility] 65+ Influenza Virus 2021-04-02 Completed [facility] 00:00:00 [facility] 65+ Influenza Virus 2021-04-02 Completed [facility] 00:00:00 [facility] 65+ Influenza Virus 2021-04-02 Completed [facility] 00:00:00 [facility] 65+ Influenza Virus 2021-04-02 Completed [facility] 00:00:00 [facility] 65+ Influenza Virus 2021-04-02 Completed [facility] 00:00:00 [facility] 65+ Influenza Virus 2021-04-02 Completed [facility] 00:00:00 [facility] 65+ Influenza Virus 2021-04-02 Completed [facility] 00:00:00 [facility] 65+ Influenza Virus 2021-04-02 Completed [facility] 00:00:00 [facility] 65+ Influenza Virus 2021-04-02 Completed [facility] 00:00:00 [facility] 65+ Influenza Virus 2021-04-02 Completed [facility] 00:00:00 [facility] 65+ Influenza Virus 2021-04-02 Completed [facility] 00:00:00 [facility] 65+ Influenza Virus 2021-04-02 Completed [facility] 00:00:00 [facility] 65+ Influenza Virus 2021-04-02 Completed [facility] 00:00:00 [facility] 65+ Influenza Virus 2021-04-02 Completed [facility] 00:00:00 [facility] 65+ Influenza Virus 2021-04-02 Completed [facility] 00:00:00 [facility] 65+ Influenza Virus 2021-04-02 Completed [facility] 00:00:00 [facility] 65+ Influenza Virus 2021-04-02 Completed [facility] 00:00:00 [facility] 65+ Influenza Virus 2021-04-02 Completed [facility] 00:00:00 [facility] 65+ Influenza Virus 2021-04-02 Completed [facility] 00:00:00 [facility] 65+ Influenza Virus 2021-04-02 Completed [facility] 00:00:00 [facility] 65+ Influenza Virus 2021-04-02 Completed [facility] 00:00:00 [facility] 65+ Influenza Virus 2021-04-02 Completed [facility] 00:00:00 [facility]+ Influenza Virus 2021-04-02 Completed [facility] 00:00:00 [facility] 65+ Influenza Virus 2021-04-02 Completed [facility] 00:00:00 [facility]+ Influenza Virus 2021-04-02 Completed [facility] 00:00:00 [facility]+ Influenza Virus 2021-04-02 Completed [facility] 00:00:00 [facility]+ Influenza Virus 2021-04-02 Completed [facility] 00:00:00 [facility]+ Influenza Virus 2021-04-02 Completed [facility] 00:00:00 [facility]+ Influenza Virus 2021-04-02 Completed [facility] 00:00:00 [facility]+ Influenza Virus 2021-04-02 Completed [facility] 00:00:00 [facility]+ Influenza Virus 2021-04-02 Completed [facility] 00:00:00 [facility]+ Influenza Virus 2021-04-02 Completed [facility] 00:00:00 [facility] 65+ Influenza Virus 2021-04-02 Completed [facility] 00:00:00 [facility]+ Influenza Virus 2021-04-02 Completed [facility] 00:00:00 [facility]+ Influenza Virus 2021-04-02 Completed [facility] 00:00:00 [facility]+ Influenza Virus 2021-04-02 Completed [facility] 00:00:00 [facility]+ Influenza Virus 2021-04-02 Completed [facility] 00:00:00 [facility] 65+ Influenza Virus 2021-04-02 Completed [facility] 00:00:00 [facility]+ Influenza Virus 2021-04-02 Completed [facility] 00:00:00 [facility]+ Influenza Virus 2021-04-02 Completed [facility] 00:00:00 [facility]+ Influenza Virus 2021-04-02 Completed [facility] 00:00:00 [facility]+ Influenza Virus 2021-04-02 Completed [facility] 00:00:00 [facility]+ Influenza Virus 2021-04-02 Completed [facility] 00:00:00 [facility]+ Influenza Virus 2021-04-02 Completed [facility] 00:00:00 [facility]+ Influenza Virus 2021-04-02 Completed [facility] 00:00:00 [facility]+ Influenza Virus 2021-04-02 Completed [facility] 00:00:00 [facility]+ Influenza Virus 2021-04-02 Completed [facility] 00:00:00 [facility]+ Influenza Virus 2021-04-02 Completed [facility] 00:00:00 [facility]+ Influenza Virus 2021-04-02 Completed [facility] 00:00:00 [facility]+ Influenza Virus 2021-04-02 Completed [facility] 00:00:00 [facility]+ Influenza Virus 2021-04-02 Completed [facility] 00:00:00 [facility] 65+ Influenza Virus 2021-04-02 Completed [facility] 00:00:00 [facility] 65+ Influenza Virus 2021-04-02 Completed [facility] 00:00:00 [facility] 65+ Influenza Virus 2021-04-02 Completed [facility] 00:00:00 [facility] 65+ Influenza Virus 2021-04-02 Completed [facility] 00:00:00 [facility]+ SARS-COV-2 COVID-19 2021-03-26 Completed [facility] MODERNA 0.25ML 00:00:00 [place] [facility] SARS-COV-2 COVID-19 2021-03-26 Completed [facility] MODERNA 0.25ML 00:00:00 [place] [facility] SARS-COV-2 COVID-19 2021-03-26 Completed [facility] MODERNA 0.25ML 00:00:00 [place] [facility] SARS-COV-2 COVID-19 2021-03-26 Completed [facility] MODERNA 0.25ML 00:00:00 [place] [facility] SARS-COV-2 COVID-19 2021-03-26 Completed [facility] MODERNA 0.25ML 00:00:00 [place] [facility] SARS-COV-2 COVID-19 2021-03-26 Completed [facility] MODERNA 0.25ML 00:00:00 [place] [facility] SARS-COV-2 COVID-19 2021-03-26 Completed [facility] MODERNA 0.25ML 00:00:00 [place] [facility] SARS-COV-2 COVID-19 2021-03-26 Completed [facility] MODERNA 0.25ML 00:00:00 [place] [facility] SARS-COV-2 COVID-19 2021-03-26 Completed [facility] MODERNA 0.25ML 00:00:00 [place] [facility] SARS-COV-2 COVID-19 2021-03-26 Completed [facility] MODERNA 0.25ML 00:00:00 [place] [facility] SARS-COV-2 COVID-19 2021-03-26 Completed [facility] MODERNA 0.25ML 00:00:00 [place] [facility] SARS-COV-2 COVID-19 2021-03-26 Completed [facility] MODERNA 0.25ML 00:00:00 [place] [facility] SARS-COV-2 COVID-19 2021-03-26 Completed [facility] MODERNA 0.25ML 00:00:00 [place] [facility] SARS-COV-2 COVID-19 2021-03-26 Completed [facility] MODERNA 0.25ML 00:00:00 [place] [facility] SARS-COV-2 COVID-19 2021-03-26 Completed [facility] MODERNA 0.25ML 00:00:00 [place] [facility] SARS-COV-2 COVID-19 2021-03-26 Completed [facility] MODERNA 0.25ML 00:00:00 [place] [facility] SARS-COV-2 COVID-19 2021-03-26 Completed [facility] MODERNA 0.25ML 00:00:00 [place] [facility] SARS-COV-2 COVID-19 2021-03-26 Completed [facility] MODERNA 0.25ML 00:00:00 [place] [facility] SARS-COV-2 COVID-19 2021-03-26 Completed [facility] MODERNA 0.25ML 00:00:00 [place] [facility] SARS-COV-2 COVID-19 2021-03-26 Completed [facility] MODERNA 0.25ML 00:00:00 [place] [facility] SARS-COV-2 COVID-19 2021-03-26 Completed [facility] MODERNA 0.25ML 00:00:00 [place] [facility] SARS-COV-2 COVID-19 2021-03-26 Completed [facility] MODERNA 0.25ML 00:00:00 [place] [facility] SARS-COV-2 COVID-19 2021-03-26 Completed [facility] MODERNA 0.25ML 00:00:00 [place] [facility] SARS-COV-2 COVID-19 2021-03-26 Completed [facility] MODERNA 0.25ML 00:00:00 [place] [facility] SARS-COV-2 COVID-19 2021-03-26 Completed [facility] MODERNA 0.25ML 00:00:00 [place] [facility] SARS-COV-2 COVID-19 2021-03-26 Completed [facility] MODERNA 0.25ML 00:00:00 [place] [facility] SARS-COV-2 COVID-19 2021-03-26 Completed [facility] MODERNA 0.25ML 00:00:00 [place] [facility] SARS-COV-2 COVID-19 2021-03-26 Completed [facility] MODERNA 0.25ML 00:00:00 [place] [facility] SARS-COV-2 COVID-19 2021-03-26 Completed [facility] MODERNA 0.25ML 00:00:00 [place] [facility] SARS-COV-2 COVID-19 2021-03-26 Completed [facility] MODERNA 0.25ML 00:00:00 [place] [facility] SARS-COV-2 COVID-19 2021-03-26 Completed [facility] MODERNA 0.25ML 00:00:00 [place] [facility] SARS-COV-2 COVID-19 2021-03-26 Completed [facility] MODERNA 0.25ML 00:00:00 [place] [facility] SARS-COV-2 COVID-19 2021-03-26 Completed [facility] MODERNA 0.25ML 00:00:00 [place] [facility] SARS-COV-2 COVID-19 2021-03-26 Completed [facility] MODERNA 0.25ML 00:00:00 [place] [facility] SARS-COV-2 COVID-19 2021-03-26 Completed [facility] MODERNA 0.25ML 00:00:00 [place] [facility] SARS-COV-2 COVID-19 2021-03-26 Completed [facility] MODERNA 0.25ML 00:00:00 [place] [facility] SARS-COV-2 COVID-19 2021-03-26 Completed [facility] MODERNA 0.25ML 00:00:00 [place] [facility] SARS-COV-2 COVID-19 2021-03-26 Completed [facility] MODERNA 0.25ML 00:00:00 [place] [facility] SARS-COV-2 COVID-19 2021-03-26 Completed [facility] MODERNA 0.25ML 00:00:00 [place] [facility] SARS-COV-2 COVID-19 2021-03-26 Completed [facility] MODERNA 0.25ML 00:00:00 [place] [facility] SARS-COV-2 COVID-19 2021-03-26 Completed [facility] MODERNA 0.25ML 00:00:00 [place] [facility] SARS-COV-2 COVID-19 2021-03-26 Completed [facility] MODERNA 0.25ML 00:00:00 [place] [facility] SARS-COV-2 COVID-19 2021-03-26 Completed [facility] MODERNA 0.25ML 00:00:00 [place] [facility] SARS-COV-2 COVID-19 2021-03-26 Completed [facility] MODERNA 0.25ML 00:00:00 [place] [facility] SARS-COV-2 COVID-19 2021-03-26 Completed [facility] MODERNA 0.25ML 00:00:00 [place] [facility] SARS-COV-2 COVID-19 2021-03-26 Completed [facility] MODERNA 0.25ML 00:00:00 [place] [facility] SARS-COV-2 COVID-19 2021-03-26 Completed [facility] MODERNA 0.25ML 00:00:00 [place] [facility] SARS-COV-2 COVID-19 2021-03-26 Completed [facility] MODERNA 0.25ML 00:00:00 [place] [facility] SARS-COV-2 COVID-19 2021-03-26 Completed [facility] MODERNA 0.25ML 00:00:00 [place] [facility] SARS-COV-2 COVID-19 2021-03-26 Completed [facility] MODERNA 0.25ML 00:00:00 [place] [facility] SARS-COV-2 COVID-19 2021-03-26 Completed [facility] MODERNA 0.25ML 00:00:00 [place] [facility] SARS-COV-2 COVID-19 2021-03-26 Completed [facility] MODERNA 0.25ML 00:00:00 [place] [facility] SARS-COV-2 COVID-19 2021-03-26 Completed [facility] MODERNA 0.25ML 00:00:00 [place] [facility] SARS-COV-2 COVID-19 2021-03-26 Completed [facility] MODERNA 0.25ML 00:00:00 [place] [facility] SARS-COV-2 COVID-19 2021-03-26 Completed [facility] MODERNA 0.25ML 00:00:00 [place] [facility] SARS-COV-2 COVID-19 2021-03-26 Completed [facility] MODERNA 0.25ML 00:00:00 [place] [facility] SARS-COV-2 COVID-19 2021-03-26 Completed [facility] MODERNA 0.25ML 00:00:00 [place] [facility] SARS-COV-2 COVID-19 2021-03-26 Completed [facility] MODERNA 0.25ML 00:00:00 [place] [facility] SARS-COV-2 COVID-19 2021-03-26 Completed [facility] MODERNA 0.25ML 00:00:00 [place] [facility] SARS-COV-2 COVID-19 2021-03-26 Completed [facility] MODERNA 0.25ML 00:00:00 [place] [facility] SARS-COV-2 COVID-19 2021-03-26 Completed [facility] MODERNA 0.25ML 00:00:00 [place] [facility] SARS-COV-2 COVID-19 2021-03-26 Completed [facility] MODERNA 0.25ML 00:00:00 [place] [facility] SARS-COV-2 COVID-19 2021-03-26 Completed [facility] MODERNA 0.25ML 00:00:00 [place] [facility] SARS-COV-2 COVID-19 2021-03-26 Completed [facility] MODERNA 0.25ML 00:00:00 [place] [facility] SARS-COV-2 COVID-19 2021-03-26 Completed [facility] MODERNA 0.25ML 00:00:00 [place] [facility] SARS-COV-2 COVID-19 2021-03-26 Completed [facility] MODERNA 0.25ML 00:00:00 [place] [facility] SARS-COV-2 COVID-19 2021-03-26 Completed [facility] MODERNA 0.25ML 00:00:00 [place] [facility] SARS-COV-2 COVID-19 2021-03-26 Completed [facility] MODERNA 0.25ML 00:00:00 [place] [facility] SARS-COV-2 COVID-19 2021-03-26 Completed [facility] MODERNA 0.25ML 00:00:00 [place] [facility] SARS-COV-2 COVID-19 2021-03-26 Completed [facility] MODERNA 0.25ML 00:00:00 [place] [facility] SARS-COV-2 COVID-19 2021-03-26 Completed [facility] MODERNA 0.25ML 00:00:00 [place] [facility] SARS-COV-2 COVID-19 2021-03-26 Completed [facility] MODERNA 0.25ML 00:00:00 [place] [facility] SARS-COV-2 COVID-19 2021-03-26 Completed [facility] MODERNA 0.25ML 00:00:00 [place] [facility] SARS-COV-2 COVID-19 2021-03-26 Completed [facility] MODERNA 0.25ML 00:00:00 [place] [facility] SARS-COV-2 COVID-19 2021-03-26 Completed [facility] MODERNA 0.25ML 00:00:00 [place] [facility] SARS-COV-2 COVID-19 2021-03-26 Completed [facility] MODERNA 0.25ML 00:00:00 [place] [facility] SARS-COV-2 COVID-19 2021-03-26 Completed [facility] MODERNA 0.25ML 00:00:00 [place] [facility] SARS-COV-2 COVID-19 2021-03-26 Completed [facility] MODERNA 0.25ML 00:00:00 [place] [facility] SARS-COV-2 COVID-19 2021-03-26 Completed [facility] MODERNA 0.25ML 00:00:00 [place] [facility] SARS-COV-2 COVID-19 2021-03-26 Completed [facility] MODERNA 0.25ML 00:00:00 [place] [facility] SARS-COV-2 COVID-19 2021-03-26 Completed [facility] MODERNA 0.25ML 00:00:00 [place] [facility] SARS-COV-2 COVID-19 2021-03-26 Completed [facility] MODERNA 0.25ML 00:00:00 [place] [facility] SARS-COV-2 COVID-19 2021-03-26 Completed [facility] MODERNA 0.25ML 00:00:00 [place] [facility] SARS-COV-2 COVID-19 2021-03-26 Completed [facility] MODERNA 0.25ML 00:00:00 [place] [facility] SARS-COV-2 COVID-19 2021-03-26 Completed [facility] MODERNA 0.25ML 00:00:00 [place] [facility] SARS-COV-2 COVID-19 2021-03-26 Completed [facility] MODERNA 0.25ML 00:00:00 [place] [facility] SARS-COV-2 COVID-19 2021-03-26 Completed [facility] MODERNA 0.25ML 00:00:00 [place] [facility] SARS-COV-2 COVID-19 2021-03-26 Completed [facility] MODERNA 0.25ML 00:00:00 [place] [facility] SARS-COV-2 COVID-19 2021-03-26 Completed [facility] MODERNA 0.25ML 00:00:00 [place] [facility] SARS-COV-2 COVID-19 2021-03-26 Completed [facility] MODERNA 0.25ML 00:00:00 [place] [facility] SARS-COV-2 COVID-19 2021-03-26 Completed [facility] MODERNA 0.25ML 00:00:00 [place] [facility] SARS-COV-2 COVID-19 2021-03-26 Completed [facility] MODERNA 0.25ML 00:00:00 [place] [facility]ACC[facility] SARS-COV-2 COVID-19 2021-03-26 Completed [facility] MODERNA 0.25ML 00:00:00 [place] [facility] SARS-COV-2 COVID-19 2021-03-26 Completed [facility] MODERNA 0.25ML 00:00:00 [place] [facility] SARS-COV-2 COVID-19 2021-03-26 Completed [facility] MODERNA 0.25ML 00:00:00 [place] [facility]ACC[facility] SARS-COV-2 COVID-19 2021-03-26 Completed [facility] MODERNA 0.25ML 00:00:00 [place] [facility]ACC[facility] SARS-COV-2 COVID-19 2021-03-26 Completed [facility] MODERNA 0.25ML 00:00:00 [place] [facility] SARS-COV-2 COVID-19 2020-06-13 Completed [facility] MODERNA VACCINE 00:00:00 [place] [facility] SARS-COV-2 COVID-19 2020-06-13 Completed [facility] MODERNA VACCINE 00:00:00 [place] [facility] SARS-COV-2 COVID-19 2020-06-13 Completed [facility] MODERNA VACCINE 00:00:00 [place] [facility] SARS-COV-2 COVID-19 2020-06-13 Completed [facility] MODERNA VACCINE 00:00:00 [place] [facility] SARS-COV-2 COVID-19 2020-06-13 Completed [facility] MODERNA VACCINE 00:00:00 [place] [facility] SARS-COV-2 COVID-19 2020-06-13 Completed [facility] MODERNA 12+ YRS 00:00:00 [place] [facility] SARS-COV-2 COVID-19 2020-06-13 Completed [facility] MODERNA 12+ YRS 00:00:00 [place] [facility] SARS-COV-2 COVID-19 2020-06-13 Completed [facility] MODERNA 12+ YRS 00:00:00 [place] [facility] SARS-COV-2 COVID-19 2020-06-13 Completed [facility] MODERNA 12+ YRS 00:00:00 [place] [facility] SARS-COV-2 COVID-19 2020-06-13 Completed [facility] MODERNA 12+ YRS 00:00:00 [place] [facility] SARS-COV-2 COVID-19 2020-06-13 Completed [facility] MODERNA 12+ YRS 00:00:00 [place] [facility] SARS-COV-2 COVID-19 2020-06-13 Completed [facility] MODERNA 12+ YRS 00:00:00 [place] [facility] SARS-COV-2 COVID-19 2020-06-13 Completed [facility] MODERNA 12+ YRS 00:00:00 [place] [facility] SARS-COV-2 COVID-19 2020-06-13 Completed [facility] MODERNA 12+ YRS 00:00:00 [place] [facility] SARS-COV-2 COVID-19 2020-06-13 Completed [facility] MODERNA 12+ YRS 00:00:00 [place] [facility] SARS-COV-2 COVID-19 2020-06-13 Completed [facility] of MODERNA 12+ YRS 00:00:00 [place] [facility] SARS-COV-2 COVID-19 2020-06-13 Completed [facility] MODERNA 12+ YRS 00:00:00 [place] [facility] SARS-COV-2 COVID-19 2020-06-13 Completed [facility] of MODERNA 12+ YRS 00:00:00 [place] [facility] SARS-COV-2 COVID-19 2020-06-13 Completed [facility] of MODERNA 12+ YRS 00:00:00 [place] [facility] SARS-COV-2 COVID-19 2020-06-13 Completed [facility] of MODERNA 12+ YRS 00:00:00 [place] [facility] SARS-COV-2 COVID-19 2020-06-13 Completed [facility] of MODERNA 12+ YRS 00:00:00 [place] [facility] SARS-COV-2 COVID-19 2020-06-13 Completed [facility] of MODERNA 12+ YRS 00:00:00 [place] [facility] SARS-COV-2 COVID-19 2020-06-13 Completed [facility] 12[facility] YRS 00:00:00 [facility] SARS-COV-2 COVID-19 2020-06-13 Completed [facility] 12+ YRS 00:00:00 [facility] SARS-COV-2 COVID-19 2020-06-13 Completed [facility] 12+ YRS 00:00:00 [facility] SARS-COV-2 COVID-19 2020-06-13 Completed [facility] 12+ YRS 00:00:00 [facility] SARS-COV-2 COVID-19 2020-06-13 Completed [facility] 12+ YRS 00:00:00 [facility] SARS-COV-2 COVID-19 2020-06-13 Completed [facility] 12+ YRS 00:00:00 [place] [facility] SARS-COV-2 COVID-19 2020-06-13 Completed [facility] 12+ YRS 00:00:00 [facility] SARS-COV-2 COVID-19 2020-06-13 Completed [facility] 12+ YRS 00:00:00 [place] [facility] SARS-COV-2 COVID-19 2020-06-13 Completed [facility] 12+ YRS 00:00:00 [facility] SARS-COV-2 COVID-19 2020-06-13 Completed [facility] 12+ YRS 00:00:00 [place] [facility] SARS-COV-2 COVID-19 2020-06-13 Completed [facility] 12+ YRS 00:00:00 [place] [facility] SARS-COV-2 COVID-19 2020-06-13 Completed [facility] 12+ YRS 00:00:00 [facility] SARS-COV-2 COVID-19 2020-06-13 Completed [facility] 12+ YRS 00:00:00 [place] [facility] SARS-COV-2 COVID-19 2020-06-13 Completed [facility] 12+ YRS 00:00:00 [place] [facility] SARS-COV-2 COVID-19 2020-06-13 Completed [facility] 12+ YRS 00:00:00 [place] [facility] SARS-COV-2 COVID-19 2020-06-13 Completed [facility] 12+ YRS 00:00:00 [place] [facility] SARS-COV-2 COVID-19 2020-06-13 Completed [facility] 12+ YRS 00:00:00 [place] [facility] SARS-COV-2 COVID-19 2020-06-13 Completed [facility] 12+ YRS 00:00:00 [facility] SARS-COV-2 COVID-19 2020-06-13 Completed [facility] 12+ YRS 00:00:00 [place] [facility] SARS-COV-2 COVID-19 2020-06-13 Completed [facility] 12+ YRS 00:00:00 [place] [facility] SARS-COV-2 COVID-19 2020-06-13 Completed [facility] 12+ YRS 00:00:00 [place] [facility] SARS-COV-2 COVID-19 2020-06-13 Completed [facility] 12+ YRS 00:00:00 [facility] SARS-COV-2 COVID-19 2020-06-13 Completed [facility] 12+ YRS 00:00:00 [place] [facility] SARS-COV-2 COVID-19 2020-06-13 Completed [facility] 12+ YRS 00:00:00 [place] [facility] SARS-COV-2 COVID-19 2020-06-13 Completed [facility] 12+ YRS 00:00:00 [facility] SARS-COV-2 COVID-19 2020-06-13 Completed [facility] 12+ YRS 00:00:00 [facility] SARS-COV-2 COVID-19 2020-06-13 Completed [facility] 12+ YRS 00:00:00 [place] [facility] SARS-COV-2 COVID-19 2020-06-13 Completed [facility] 12+ YRS 00:00:00 [facility] SARS-COV-2 COVID-19 2020-06-13 Completed [facility] 12+ YRS 00:00:00 [place] [facility] SARS-COV-2 COVID-19 2020-06-13 Completed [facility] 12+ YRS 00:00:00 [place] [facility] SARS-COV-2 COVID-19 2020-06-13 Completed [facility] 12+ YRS 00:00:00 [place] [facility] SARS-COV-2 COVID-19 2020-06-13 Completed [facility] 12+ YRS 00:00:00 [place] [facility] SARS-COV-2 COVID-19 2020-06-13 Completed [facility] 12+ YRS 00:00:00 [place] [facility] SARS-COV-2 COVID-19 2020-06-13 Completed [facility] 12+ YRS 00:00:00 [facility] SARS-COV-2 COVID-19 2020-06-13 Completed [facility] 12+ YRS 00:00:00 [place] [facility] SARS-COV-2 COVID-19 2020-06-13 Completed [facility] 12+ YRS 00:00:00 [place] [facility] SARS-COV-2 COVID-19 2020-06-13 Completed [facility] 12+ YRS 00:00:00 [place] [facility] SARS-COV-2 COVID-19 2020-06-13 Completed [facility] 12+ YRS 00:00:00 [place] [facility] SARS-COV-2 COVID-19 2020-06-13 Completed [facility] 12+ YRS 00:00:00 [place] [facility] SARS-COV-2 COVID-19 2020-06-13 Completed [facility] 12+ YRS 00:00:00 [place] [facility] SARS-COV-2 COVID-19 2020-06-13 Completed [facility] 12+ YRS 00:00:00 [place] [facility] SARS-COV-2 COVID-19 2020-06-13 Completed [facility] 12+ YRS 00:00:00 [place] [facility] SARS-COV-2 COVID-19 2020-06-13 Completed [facility] 12+ YRS 00:00:00 [place] [facility] SARS-COV-2 COVID-19 2020-06-13 Completed [facility] 12+ YRS 00:00:00 [place] [facility] SARS-COV-2 COVID-19 2020-06-13 Completed [facility] 12+ YRS 00:00:00 [place] [facility] SARS-COV-2 COVID-19 2020-06-13 Completed [facility] 12+ YRS 00:00:00 [place] [facility] SARS-COV-2 COVID-19 2020-06-13 Completed [facility] 12+ YRS 00:00:00 [place] [facility] SARS-COV-2 COVID-19 2020-06-13 Completed [facility] 12+ YRS 00:00:00 [place] [facility] SARS-COV-2 COVID-19 2020-06-13 Completed [facility] 12+ YRS 00:00:00 [place] [facility] SARS-COV-2 COVID-19 2020-06-13 Completed [facility] 12+ YRS 00:00:00 [place] [facility] SARS-COV-2 COVID-19 2020-06-13 Completed [facility] 12+ YRS 00:00:00 [place] [facility] SARS-COV-2 COVID-19 2020-06-13 Completed [facility] 12+ YRS 00:00:00 [place] [facility] SARS-COV-2 COVID-19 2020-06-13 Completed [facility] 12+ YRS 00:00:00 [place] [facility] SARS-COV-2 COVID-19 2020-06-13 Completed [facility] 12+ YRS 00:00:00 [place] [facility] SARS-COV-2 COVID-19 2020-06-13 Completed [facility] 12+ YRS 00:00:00 [place] [facility] SARS-COV-2 COVID-19 2020-06-13 Completed [facility] 12+ YRS 00:00:00 [place] [facility] SARS-COV-2 COVID-19 2020-06-13 Completed [facility] 12+ YRS 00:00:00 [place] [facility] SARS-COV-2 COVID-19 2020-06-13 Completed [facility] 12+ YRS 00:00:00 [place] [facility] SARS-COV-2 COVID-19 2020-06-13 Completed [facility] 12+ YRS 00:00:00 [place] [facility] SARS-COV-2 COVID-19 2020-06-13 Completed [facility] 12+ YRS 00:00:00 [place] [facility] SARS-COV-2 COVID-19 2020-06-13 Completed [facility] 12+ YRS 00:00:00 [place] [facility] SARS-COV-2 COVID-19 2020-06-13 Completed [facility] 12+ YRS 00:00:00 [place] [facility] SARS-COV-2 COVID-19 2020-06-13 Completed [facility] 12+ YRS 00:00:00 [place] [facility] SARS-COV-2 COVID-19 2020-06-13 Completed [facility] 12+ YRS 00:00:00 [place] [facility] SARS-COV-2 COVID-19 2020-06-13 Completed [facility] 12+ YRS 00:00:00 [place] [facility] SARS-COV-2 COVID-19 2020-06-13 Completed [facility] 12+ YRS 00:00:00 [place] [facility] SARS-COV-2 COVID-19 2020-06-13 Completed [facility] 12+ YRS 00:00:00 [place] [facility] SARS-COV-2 COVID-19 2020-06-13 Completed [facility] 12+ YRS 00:00:00 [place] [facility] SARS-COV-2 COVID-19 2020-06-13 Completed [facility] 12+ YRS 00:00:00 [place] [facility] SARS-COV-2 COVID-19 2020-06-13 Completed [facility] 12+ YRS 00:00:00 [place] [facility] SARS-COV-2 COVID-19 2020-06-13 Completed [facility] 12+ YRS 00:00:00 [place] [facility] SARS-COV-2 COVID-19 2020-06-13 Completed [facility] 12+ YRS 00:00:00 [place] [facility] SARS-COV-2 COVID-19 2020-06-13 Completed [facility] 12+ YRS 00:00:00 [place] [facility] SARS-COV-2 COVID-19 2020-06-13 Completed [facility] 12+ YRS 00:00:00 [place] [facility] SARS-COV-2 COVID-19 2020-06-13 Completed [facility] 12+ YRS 00:00:00 [place] [facility] SARS-COV-2 COVID-19 2020-05-16 Completed [facility] VACCINE 00:00:00 [facility] SARS-COV-2 COVID-19 2020-05-16 Completed [facility] VACCINE 00:00:00 [facility] SARS-COV-2 COVID-19 2020-05-16 Completed [facility] VACCINE 00:00:00 [facility] SARS-COV-2 COVID-19 2020-05-16 Completed [facility] VACCINE 00:00:00 [place] [facility] SARS-COV-2 COVID-19 2020-05-16 Completed [facility] VACCINE 00:00:00 [place] [facility] SARS-COV-2 COVID-19 2020-05-16 Completed [facility] 12+ YRS 00:00:00 [place] [facility] SARS-COV-2 COVID-19 2020-05-16 Completed [facility] 12+ YRS 00:00:00 [place] [facility] SARS-COV-2 COVID-19 2020-05-16 Completed [facility] 12+ YRS 00:00:00 [place] [facility] SARS-COV-2 COVID-19 2020-05-16 Completed [facility] 12+ YRS 00:00:00 [place] [facility] SARS-COV-2 COVID-19 2020-05-16 Completed [facility] 12+ YRS 00:00:00 [place] [facility] SARS-COV-2 COVID-19 2020-05-16 Completed [facility] 12+ YRS 00:00:00 [place] [facility] SARS-COV-2 COVID-19 2020-05-16 Completed [facility] 12+ YRS 00:00:00 [place] [facility] SARS-COV-2 COVID-19 2020-05-16 Completed [facility] 12+ YRS 00:00:00 [place] [facility] SARS-COV-2 COVID-19 2020-05-16 Completed [facility] 12+ YRS 00:00:00 [place] [facility] SARS-COV-2 COVID-19 2020-05-16 Completed [facility] 12+ YRS 00:00:00 [place] [facility] SARS-COV-2 COVID-19 2020-05-16 Completed [facility] 12+ YRS 00:00:00 [place] [facility] SARS-COV-2 COVID-19 2020-05-16 Completed [facility] 12+ YRS 00:00:00 [place] [facility] SARS-COV-2 COVID-19 2020-05-16 Completed [facility] 12+ YRS 00:00:00 [place] [facility] SARS-COV-2 COVID-19 2020-05-16 Completed [facility] 12+ YRS 00:00:00 [place] [facility] SARS-COV-2 COVID-19 2020-05-16 Completed [facility] 12+ YRS 00:00:00 [place] [facility] SARS-COV-2 COVID-19 2020-05-16 Completed [facility] 12+ YRS 00:00:00 [place] [facility] SARS-COV-2 COVID-19 2020-05-16 Completed [facility] 12+ YRS 00:00:00 [place] [facility] SARS-COV-2 COVID-19 2020-05-16 Completed [facility] 12+ YRS 00:00:00 [place] [facility] SARS-COV-2 COVID-19 2020-05-16 Completed [facility] 12+ YRS 00:00:00 [place] [facility] SARS-COV-2 COVID-19 2020-05-16 Completed [facility] 12+ YRS 00:00:00 [place] [facility] SARS-COV-2 COVID-19 2020-05-16 Completed [facility] 12+ YRS 00:00:00 [place] [facility] SARS-COV-2 COVID-19 2020-05-16 Completed [facility] 12+ YRS 00:00:00 [place] [facility] SARS-COV-2 COVID-19 2020-05-16 Completed [facility] 12+ YRS 00:00:00 [place] [facility] SARS-COV-2 COVID-19 2020-05-16 Completed [facility] 12+ YRS 00:00:00 [place] [facility] SARS-COV-2 COVID-19 2020-05-16 Completed [facility] 12+ YRS 00:00:00 [place] [facility] SARS-COV-2 COVID-19 2020-05-16 Completed [facility] 12+ YRS 00:00:00 [place] [facility] SARS-COV-2 COVID-19 2020-05-16 Completed [facility] 12+ YRS 00:00:00 [place] [facility] SARS-COV-2 COVID-19 2020-05-16 Completed [facility] 12+ YRS 00:00:00 [place] [facility] SARS-COV-2 COVID-19 2020-05-16 Completed [facility] 12+ YRS 00:00:00 [place] [facility] SARS-COV-2 COVID-19 2020-05-16 Completed [facility] 12+ YRS 00:00:00 [place] [facility] SARS-COV-2 COVID-19 2020-05-16 Completed [facility] 12+ YRS 00:00:00 [place] [facility] SARS-COV-2 COVID-19 2020-05-16 Completed [facility] 12+ YRS 00:00:00 [place] [facility] SARS-COV-2 COVID-19 2020-05-16 Completed [facility] 12+ YRS 00:00:00 [place] [facility] SARS-COV-2 COVID-19 2020-05-16 Completed [facility] 12+ YRS 00:00:00 [place] [facility] SARS-COV-2 COVID-19 2020-05-16 Completed [facility] 12+ YRS 00:00:00 [place] [facility] SARS-COV-2 COVID-19 2020-05-16 Completed [facility] 12+ YRS 00:00:00 [place] [facility] SARS-COV-2 COVID-19 2020-05-16 Completed [facility] 12+ YRS 00:00:00 [place] [facility] SARS-COV-2 COVID-19 2020-05-16 Completed [facility] 12+ YRS 00:00:00 [place] [facility] SARS-COV-2 COVID-19 2020-05-16 Completed [facility] 12+ YRS 00:00:00 [place] [facility] SARS-COV-2 COVID-19 2020-05-16 Completed [facility] 12+ YRS 00:00:00 [place] [facility] SARS-COV-2 COVID-19 2020-05-16 Completed [facility] 12+ YRS 00:00:00 [place] [facility] SARS-COV-2 COVID-19 2020-05-16 Completed [facility] 12+ YRS 00:00:00 [place] [facility] SARS-COV-2 COVID-19 2020-05-16 Completed [facility] 12+ YRS 00:00:00 [place] [facility] SARS-COV-2 COVID-19 2020-05-16 Completed [facility] 12+ YRS 00:00:00 [place] [facility] SARS-COV-2 COVID-19 2020-05-16 Completed [facility] 12+ YRS 00:00:00 [place] [facility] SARS-COV-2 COVID-19 2020-05-16 Completed [facility] 12+ YRS 00:00:00 [place] [facility] SARS-COV-2 COVID-19 2020-05-16 Completed [facility] 12+ YRS 00:00:00 [place] [facility] SARS-COV-2 COVID-19 2020-05-16 Completed [facility] 12+ YRS 00:00:00 [place] [facility] SARS-COV-2 COVID-19 2020-05-16 Completed [facility] 12+ YRS 00:00:00 [place] [facility] SARS-COV-2 COVID-19 2020-05-16 Completed [facility] 12+ YRS 00:00:00 [place] [facility] SARS-COV-2 COVID-19 2020-05-16 Completed [facility] 12+ YRS 00:00:00 [place] [facility] SARS-COV-2 COVID-19 2020-05-16 Completed [facility] 12+ YRS 00:00:00 [place] [facility] SARS-COV-2 COVID-19 2020-05-16 Completed [facility] 12+ YRS 00:00:00 [place] [facility] SARS-COV-2 COVID-19 2020-05-16 Completed [facility] 12+ YRS 00:00:00 [place] [facility] SARS-COV-2 COVID-19 2020-05-16 Completed [facility] 12+ YRS 00:00:00 [place] [facility] SARS-COV-2 COVID-19 2020-05-16 Completed [facility] 12+ YRS 00:00:00 [place] [facility] SARS-COV-2 COVID-19 2020-05-16 Completed [facility] 12+ YRS 00:00:00 [place] [facility] SARS-COV-2 COVID-19 2020-05-16 Completed [facility] 12+ YRS 00:00:00 [place] [facility] SARS-COV-2 COVID-19 2020-05-16 Completed [facility] 12+ YRS 00:00:00 [place] [facility] SARS-COV-2 COVID-19 2020-05-16 Completed [facility] 12+ YRS 00:00:00 [place] [facility] SARS-COV-2 COVID-19 2020-05-16 Completed [facility] 12+ YRS 00:00:00 [place] [facility] SARS-COV-2 COVID-19 2020-05-16 Completed [facility] 12+ YRS 00:00:00 [place] [facility] SARS-COV-2 COVID-19 2020-05-16 Completed [facility] 12+ YRS 00:00:00 [place] [facility] SARS-COV-2 COVID-19 2020-05-16 Completed [facility] 12+ YRS 00:00:00 [place] [facility] SARS-COV-2 COVID-19 2020-05-16 Completed [facility] 12+ YRS 00:00:00 [place] [facility] SARS-COV-2 COVID-19 2020-05-16 Completed [facility] 12+ YRS 00:00:00 [place] [facility] SARS-COV-2 COVID-19 2020-05-16 Completed [facility] 12+ YRS 00:00:00 [place] [facility] SARS-COV-2 COVID-19 2020-05-16 Completed [facility] 12+ YRS 00:00:00 [place] [facility] SARS-COV-2 COVID-19 2020-05-16 Completed [facility] 12+ YRS 00:00:00 [place] [facility] SARS-COV-2 COVID-19 2020-05-16 Completed [facility] 12+ YRS 00:00:00 [place] [facility] SARS-COV-2 COVID-19 2020-05-16 Completed [facility] 12+ YRS 00:00:00 [place] [facility] SARS-COV-2 COVID-19 2020-05-16 Completed [facility] 12+ YRS 00:00:00 [place] [facility] SARS-COV-2 COVID-19 2020-05-16 Completed [facility] 12+ YRS 00:00:00 [place] [facility] SARS-COV-2 COVID-19 2020-05-16 Completed [facility] 12+ YRS 00:00:00 [place] [facility] SARS-COV-2 COVID-19 2020-05-16 Completed [facility] 12+ YRS 00:00:00 [place] [facility] SARS-COV-2 COVID-19 2020-05-16 Completed [facility] 12+ YRS 00:00:00 [place] [facility] SARS-COV-2 COVID-19 2020-05-16 Completed [facility] 12+ YRS 00:00:00 [place] [facility] SARS-COV-2 COVID-19 2020-05-16 Completed [facility] 12+ YRS 00:00:00 [place] [facility] SARS-COV-2 COVID-19 2020-05-16 Completed [facility] 12+ YRS 00:00:00 [place] [facility] SARS-COV-2 COVID-19 2020-05-16 Completed [facility] 12+ YRS 00:00:00 [place] [facility] SARS-COV-2 COVID-19 2020-05-16 Completed [facility] 12+ YRS 00:00:00 [place] [facility] SARS-COV-2 COVID-19 2020-05-16 Completed [facility] 12+ YRS 00:00:00 [place] [facility] SARS-COV-2 COVID-19 2020-05-16 Completed [facility] 12+ YRS 00:00:00 [place] [facility] SARS-COV-2 COVID-19 2020-05-16 Completed [facility] 12+ YRS 00:00:00 [place] [facility] SARS-COV-2 COVID-19 2020-05-16 Completed [facility] 12+ YRS 00:00:00 [place] [facility] SARS-COV-2 COVID-19 2020-05-16 Completed [facility] 12+ YRS 00:00:00 [place] [facility] SARS-COV-2 COVID-19 2020-05-16 Completed [facility] 12+ YRS 00:00:00 [place] [facility] SARS-COV-2 COVID-19 2020-05-16 Completed [facility] 12+ YRS 00:00:00 [place] [facility] SARS-COV-2 COVID-19 2020-05-16 Completed [facility] 12+ YRS 00:00:00 [place] [facility] SARS-COV-2 COVID-19 2020-05-16 Completed [facility] 12+ YRS 00:00:00 [place] [facility] SARS-COV-2 COVID-19 2020-05-16 Completed [facility] 12+ YRS 00:00:00 [place] [facility] SARS-COV-2 COVID-19 2020-05-16 Completed [facility] 12+ YRS 00:00:00 [facility] Influenza High Dose 2020-01-17 Completed [facility] 00:00:00 [facility] Influenza High Dose 2020-01-17 Completed [facility] 00:00:00 [facility] Influenza High Dose 2020-01-17 Completed [facility] 00:00:00 [facility] Influenza High Dose 2020-01-17 Completed [facility] 00:00:00 [facility] Influenza High Dose 2020-01-17 Completed [facility] 00:00:00 [facility] Influenza High Dose 2020-01-17 Completed [facility] 00:00:00 [facility] Influenza High Dose 2020-01-17 Completed [facility] 00:00:00 [facility] Influenza High Dose 2020-01-17 Completed [facility] 00:00:00 [facility] Influenza High Dose 2020-01-17 Completed [facility] 00:00:00 [facility] Influenza High Dose 2020-01-17 Completed [facility] 00:00:00 [facility] Influenza High Dose 2020-01-17 Completed [facility] 00:00:00 [facility] Influenza High Dose 2020-01-17 Completed [facility] 00:00:00 [facility] Influenza High Dose 2020-01-17 Completed [facility] 00:00:00 [facility] Influenza High Dose 2020-01-17 Completed [facility] 00:00:00 [facility] Influenza High Dose 2020-01-17 Completed [facility] 00:00:00 [facility] Influenza High Dose 2020-01-17 Completed [facility] 00:00:00 [facility] Influenza High Dose 2020-01-17 Completed [facility] 00:00:00 [facility] Influenza High Dose 2020-01-17 Completed [facility] 00:00:00 [facility] Influenza High Dose 2020-01-17 Completed [facility] 00:00:00 [facility] Influenza High Dose 2020-01-17 Completed [facility] 00:00:00 [facility] Influenza High Dose 2020-01-17 Completed [facility] 00:00:00 [facility] Influenza High Dose 2020-01-17 Completed [facility] 00[facility]00:00 [facility] Influenza High Dose 2020-01-17 Completed [facility] 00:00:00 [facility] Influenza High Dose 2020-01-17 Completed [facility] 00:00:00 [facility] Influenza High Dose 2020-01-17 Completed [facility] 00:00:00 [facility] Influenza High Dose 2020-01-17 Completed [facility] 00:00:00 [facility] Influenza High Dose 2020-01-17 Completed [facility] 00:00:00 [facility] Influenza High Dose 2020-01-17 Completed [facility] 00:00:00 [facility] Influenza High Dose 2020-01-17 Completed [facility] 00:00:00 [facility] Influenza High Dose 2020-01-17 Completed [facility] 00:00:00 [facility] Influenza High Dose 2020-01-17 Completed [facility] 00:00:00 [facility] Influenza High Dose 2020-01-17 Completed [facility] 00:00:00 [facility] Influenza High Dose 2020-01-17 Completed [facility] 00:00:00 [facility] Influenza High Dose 2020-01-17 Completed [facility] 00:00:00 [facility] Influenza High Dose 2020-01-17 Completed [facility] 00:00:00 [facility] Influenza High Dose 2020-01-17 Completed [facility] 00[facility]00:00 [facility] Influenza High Dose 2020-01-17 Completed [facility] 00:00:00 [facility] Influenza High Dose 2020-01-17 Completed [facility] 00[facility]00:00 [facility] Influenza High Dose 2020-01-17 Completed [facility] 00[facility]00:00 [facility] Influenza High Dose 2020-01-17 Completed [facility] 00[facility]00:00 [facility] Influenza High Dose 2020-01-17 Completed [facility] 00[facility]00:00 [facility] Influenza High Dose 2020-01-17 Completed [facility] 00:00:00 [facility] Influenza High Dose 2020-01-17 Completed [facility] 00:00:00 [facility] Influenza High Dose 2020-01-17 Completed [facility] 00:00:00 [facility] Influenza High Dose 2020-01-17 Completed [facility] 00[facility]00:00 [facility] Influenza High Dose 2020-01-17 Completed [facility] 00[facility]00:00 [facility] Influenza High Dose 2020-01-17 Completed [facility] 00:00:00 [facility] Influenza High Dose 2020-01-17 Completed [facility] 00[place]00[place]00 [place] [facility] Influenza High Dose 2020-01-17 Completed [facility] 00:00:00 [facility] Influenza High Dose 2020-01-17 Completed [facility] 00:00:00 [facility] Influenza High Dose 2020-01-17 Completed [facility] 00:00:00 [facility] Influenza High Dose 2020-01-17 Completed [facility] 00:00:00 [facility] Influenza High Dose 2020-01-17 Completed [facility] 00:00:00 [facility] Influenza High Dose 2020-01-17 Completed [facility] 00:00:00 [facility] Influenza High Dose 2020-01-17 Completed [facility] 00:00:00 [facility] Influenza High Dose 2020-01-17 Completed [facility] 00:00:00 [facility] Influenza High Dose 2020-01-17 Completed [facility] 00:00:00 [facility] Influenza High Dose 2020-01-17 Completed [facility] 00:00:00 [facility] Influenza High Dose 2020-01-17 Completed [facility] 00:00:00 [facility] Influenza High Dose 2020-01-17 Completed [facility] 00:00:00 [facility] Influenza High Dose 2020-01-17 Completed [facility] 00:00:00 [facility] Influenza High Dose 2020-01-17 Completed [facility] 00:00:00 [facility] Influenza High Dose 2020-01-17 Completed [facility] 00:00:00 [facility] Influenza High Dose 2020-01-17 Completed [facility] 00:00:00 [facility] Influenza High Dose 2020-01-17 Completed [facility] 00:00:00 [facility] Influenza High Dose 2020-01-17 Completed [facility] 00:00:00 [facility] Influenza High Dose 2020-01-17 Completed [facility] 00:00:00 [facility] Influenza High Dose 2020-01-17 Completed [facility] 00:00:00 [facility] Influenza High Dose 2020-01-17 Completed [facility] 00:00:00 [facility] Influenza High Dose 2020-01-17 Completed [facility] 00:00:00 [facility] Influenza High Dose 2020-01-17 Completed [facility] 00:00:00 [facility] Influenza High Dose 2020-01-17 Completed [facility] 00:00:00 [facility] Influenza High Dose 2020-01-17 Completed [facility] 00:00:00 [facility] Influenza High Dose 2020-01-17 Completed [facility] 00:00:00 [facility] Influenza High Dose 2020-01-17 Completed [facility] 00:00:00 [facility] Influenza High Dose 2020-01-17 Completed [facility] 00:00:00 [facility] Influenza High Dose 2020-01-17 Completed [facility] 00:00:00 [facility] Influenza High Dose 2020-01-17 Completed [facility] 00:00:00 [facility] Influenza High Dose 2020-01-17 Completed [facility] 00:00:00 [facility] Influenza High Dose 2020-01-17 Completed [facility] 00:00:00 [facility] Influenza High Dose 2020-01-17 Completed [facility] 00:00:00 [facility] Influenza High Dose 2020-01-17 Completed [facility] 00:00:00 [facility] Influenza High Dose 2020-01-17 Completed [facility] 00:00:00 [facility] Influenza High Dose 2020-01-17 Completed [facility] 00:00:00 [facility] Influenza High Dose 2020-01-17 Completed [facility] 00:00:00 [facility] Influenza High Dose 2020-01-17 Completed [facility] 00:00:00 [facility] Influenza High Dose 2020-01-17 Completed [facility] 00:00:00 [facility] Influenza High Dose 2020-01-17 Completed [facility] 00:00:00 [facility] Influenza High Dose 2020-01-17 Completed [facility] 00:00:00 [facility] Influenza High Dose 2020-01-17 Completed [facility] 00:00:00 [facility] Influenza High Dose 2020-01-17 Completed [facility] 00:00:00 [facility] Influenza High Dose 2020-01-17 Completed [facility] 00:00:00 [facility] Influenza High Dose 2020-01-17 Completed [facility] 00:00:00 [facility] Influenza High Dose 2020-01-17 Completed [facility] 00:00:00 [facility] Influenza High Dose 2020-01-17 Completed [facility] 00:00:00 [facility] Influenza High Dose 2020-01-17 Completed [facility] 00:00:00 [facility] Influenza High Dose 2020-01-17 Completed [facility] 00:00:00 [facility] Influenza Virus 2019-02-12 Completed [facility] Vaccine [facility] .5 mL 00:00:00 [facility] Influenza Virus 2019-02-12 Completed [facility] Vaccine [facility] .5 mL 00:00:00 [facility] Influenza Virus 2019-02-12 Completed [facility] Vaccine [facility] .5 mL 00:00:00 [facility] Influenza Virus 2019-02-12 Completed [facility] Vaccine [facility] .5 mL 00:00:00 [facility] Influenza Virus 2019-02-12 Completed [facility] Vaccine [facility] .5 mL 00:00:00 [place] [facility] Influenza Virus 2019-02-12 Completed [facility] Vaccine [facility] .5 mL 00:00:00 [facility] Influenza Virus 2019-02-12 Completed [facility] Vaccine [facility] .5 mL 00:00:00 [facility] Influenza Virus 2019-02-12 Completed [facility] Vaccine [facility] .5 mL 00:00:00 [place] [facility] 6[facility] Influenza Virus 2019-02-12 Completed [facility] Vaccine [facility] .5 mL 00:00:00 [place] [facility] Influenza Virus 2019-02-12 Completed [facility] Vaccine [facility] .5 mL 00:00:00 [facility] Influenza Virus 2019-02-12 Completed [facility] Vaccine [facility] .5 mL 00:00:00 [facility] Influenza Virus 2019-02-12 Completed [facility] Vaccine [facility] .5 mL 00:00:00 [facility] Influenza Virus 2019-02-12 Completed [facility] Vaccine [facility] .5 mL 00:00:00 [place] [facility] Influenza Virus 2019-02-12 Completed [facility] Vaccine [facility] .5 mL 00:00:00 [place] [facility] Influenza Virus 2019-02-12 Completed [facility] Vaccine [facility] .5 mL 00:00:00 [place] [facility] Influenza Virus 2019-02-12 Completed [facility] Vaccine [facility] .5 mL 00:00:00 [place] [facility] Influenza Virus 2019-02-12 Completed [facility] Vaccine [facility] .5 mL 00:00:00 [place] [facility] Influenza Virus 2019-02-12 Completed [facility] Vaccine [facility] .5 mL 00:00:00 [place] [facility] Influenza Virus 2019-02-12 Completed [facility] Vaccine [facility] .5 mL 00:00:00 [place] [facility] Influenza Virus 2019-02-12 Completed [facility] Vaccine [facility] .5 mL 00:00:00 [place] [facility] Influenza Virus 2019-02-12 Completed [facility] Vaccine [facility] .5 mL 00:00:00 [place] [facility] Influenza Virus 2019-02-12 Completed [facility] Vaccine [facility] .5 mL 00:00:00 [place] [facility] Influenza Virus 2019-02-12 Completed [facility] Vaccine [facility] .5 mL 00:00:00 [place] [facility] Influenza Virus 2019-02-12 Completed [facility] Vaccine [facility] .5 mL 00:00:00 [place] [facility] Influenza Virus 2019-02-12 Completed [facility] Vaccine [facility] .5 mL 00:00:00 [place] [facility] Influenza Virus 2019-02-12 Completed [facility] Vaccine [facility] .5 mL 00:00:00 [place] [facility] Influenza Virus 2019-02-12 Completed [facility] Vaccine [facility] .5 mL 00:00:00 [place] [facility] Influenza Virus 2019-02-12 Completed [facility] Vaccine [facility] .5 mL 00:00:00 [place] [facility] Influenza Virus 2019-02-12 Completed [facility] Vaccine [facility] .5 mL 00:00:00 [place] [facility] Influenza Virus 2019-02-12 Completed [facility] Vaccine [facility] .5 mL 00:00:00 [place] [facility] Influenza Virus 2019-02-12 Completed [facility] Vaccine [facility] .5 mL 00:00:00 [place] [facility] Influenza Virus 2019-02-12 Completed [facility] Vaccine [facility] .5 mL 00:00:00 [place] [facility] Influenza Virus 2019-02-12 Completed [facility] Vaccine [facility] .5 mL 00:00:00 [place] [facility] Influenza Virus 2019-02-12 Completed [facility] Vaccine [facility] .5 mL 00:00:00 [place] [facility] Influenza Virus 2019-02-12 Completed [facility] Vaccine [facility] .5 mL 00:00:00 [facility] [place] [facility] Influenza Virus 2019-02-12 Completed [facility] Vaccine [facility] .5 mL 00:00:00 [facility] [place] [facility] Influenza Virus 2019-02-12 Completed [facility] Vaccine [facility] .5 mL 00:00:00 [facility] [place] [facility] Influenza Virus 2019-02-12 Completed [facility] Vaccine [facility] .5 mL 00:00:00 [place] [facility] Influenza Virus 2019-02-12 Completed [facility] Vaccine [facility] .5 mL 00:00:00 [place] [facility] Influenza Virus 2019-02-12 Completed [facility] Vaccine [facility] .5 mL 00:00:00 [place] [facility] Influenza Virus 2019-02-12 Completed [facility] Vaccine [facility] .5 mL 00:00:00 [facility] Influenza Virus 2019-02-12 Completed [facility] Vaccine [facility] .5 mL 00:00:00 [place] [facility] Influenza Virus 2019-02-12 Completed [facility] Vaccine [facility] .5 mL 00:00:00 [facility] [place] [facility] Influenza Virus 2019-02-12 Completed [facility] Vaccine [facility] .5 mL 00:00:00 [place] [facility] Influenza Virus 2019-02-12 Completed [facility] Vaccine [facility] .5 mL 00:00:00 [facility] Influenza Virus 2019-02-12 Completed [facility] Vaccine [facility] .5 mL 00:00:00 [facility] Influenza Virus 2019-02-12 Completed [facility] Vaccine [facility] .5 mL 00:00:00 [place] [facility] Influenza Virus 2019-02-12 Completed [facility] Vaccine [facility] .5 mL 00:00:00 [place] [facility] Influenza Virus 2019-02-12 Completed [facility] Vaccine [facility] .5 mL 00:00:00 [place] [facility] Influenza Virus 2019-02-12 Completed [facility] Vaccine [facility] .5 mL 00:00:00 [facility] Influenza Virus 2019-02-12 Completed [facility] Vaccine [facility] .5 mL 00:00:00 [place] [facility] Influenza Virus 2019-02-12 Completed [facility] Vaccine [facility] .5 mL 00:00:00 [facility] Influenza Virus 2019-02-12 Completed [facility] Vaccine [facility] .5 mL 00:00:00 [place] [facility] Influenza Virus 2019-02-12 Completed [facility] Vaccine [facility] .5 mL 00:00:00 [place] [facility] Influenza Virus 2019-02-12 Completed [facility] Vaccine [facility] .5 mL 00:00:00 [facility] Influenza Virus 2019-02-12 Completed [facility] Vaccine [facility] .5 mL 00:00:00 [place] [facility] Influenza Virus 2019-02-12 Completed [facility] Vaccine [facility] .5 mL 00:00:00 [facility] Influenza Virus 2019-02-12 Completed [facility] Vaccine [facility] .5 mL 00:00:00 [facility] Influenza Virus 2019-02-12 Completed [facility] Vaccine [facility] .5 mL 00:00:00 [facility] Influenza Virus 2019-02-12 Completed [facility] Vaccine [facility] .5 mL 00:00:00 [facility] Influenza Virus 2019-02-12 Completed [facility] Vaccine [facility] .5 mL 00:00:00 [place] [facility] 6[facility] Influenza Virus 2019-02-12 Completed [facility] Vaccine [facility] .5 mL 00:00:00 [facility] Influenza Virus 2019-02-12 Completed [facility] Vaccine [facility] .5 mL 00:00:00 [place] [facility] 6[facility] Influenza Virus 2019-02-12 Completed [facility] Vaccine [facility] .5 mL 00:00:00 [place] [facility] Influenza Virus 2019-02-12 Completed [facility] Vaccine [facility] .5 mL 00:00:00 [place] [facility] Influenza Virus 2019-02-12 Completed [facility] Vaccine [facility] .5 mL 00:00:00 [place] [facility] Influenza Virus 2019-02-12 Completed [facility] Vaccine [facility] .5 mL 00:00:00 [facility] [place] [facility] 6[facility] Influenza Virus 2019-02-12 Completed [facility] Vaccine [facility] .5 mL 00:00:00 [place] [facility] 6[facility] Influenza Virus 2019-02-12 Completed [facility] Vaccine [facility] .5 mL 00:00:00 [place] [facility] Influenza Virus 2019-02-12 Completed [facility] Vaccine [facility] .5 mL 00:00:00 [place] [facility] Influenza Virus 2019-02-12 Completed [facility] Vaccine [facility] .5 mL 00:00:00 [place] [facility] Influenza Virus 2019-02-12 Completed [facility] Vaccine [facility] .5 mL 00:00:00 [place] [facility] 6[facility] Influenza Virus 2019-02-12 Completed [facility] Vaccine [facility] .5 mL 00:00:00 [place] [facility] Influenza Virus 2019-02-12 Completed [facility] Vaccine [facility] .5 mL 00:00:00 [place] [facility] Influenza Virus 2019-02-12 Completed [facility] Vaccine [facility] .5 mL 00:00:00 [place] [facility] Influenza Virus 2019-02-12 Completed [facility] Vaccine [facility] .5 mL 00:00:00 [place] [facility] Influenza Virus 2019-02-12 Completed [facility] Vaccine [facility] .5 mL 00:00:00 [place] [facility] Influenza Virus 2019-02-12 Completed [facility] Vaccine [facility] .5 mL 00:00:00 [place] [facility] Influenza Virus 2019-02-12 Completed [facility] Vaccine [facility] .5 mL 00:00:00 [place] [facility] Influenza Virus 2019-02-12 Completed [facility] Vaccine [facility] .5 mL 00:00:00 [place] [facility] Influenza Virus 2019-02-12 Completed [facility] Vaccine [facility] .5 mL 00:00:00 [place] [facility] Influenza Virus 2019-02-12 Completed [facility] Vaccine [facility] .5 mL 00:00:00 [place] [facility] Influenza Virus 2019-02-12 Completed [facility] Vaccine [facility] .5 mL 00:00:00 [place] [facility] Influenza Virus 2019-02-12 Completed [facility] Vaccine [facility] .5 mL 00:00:00 [facility] [place] [facility] 6[facility] Influenza Virus 2019-02-12 Completed [facility] Vaccine [facility] .5 mL 00:00:00 [facility] [place] [facility] Influenza Virus 2019-02-12 Completed [facility] Vaccine [facility] .5 mL 00:00:00 [place] [facility] Influenza Virus 2019-02-12 Completed [facility] Vaccine [facility] .5 mL 00:00:00 [place] [facility] 6[facility] Influenza Virus 2019-02-12 Completed [facility] Vaccine [facility] .5 mL 00:00:00 [facility] [place] [facility] Influenza Virus 2019-02-12 Completed [facility] Vaccine [facility] .5 mL 00:00:00 [place] [facility] Influenza Virus 2019-02-12 Completed [facility] Vaccine [facility] .5 mL 00:00:00 [place] [facility] Influenza Virus 2019-02-12 Completed [facility] Vaccine [facility] .5 mL 00:00:00 [place] [facility] Influenza Virus 2019-02-12 Completed [facility] Vaccine [facility] .5 mL 00:00:00 [place] [facility] Influenza Virus 2019-02-12 Completed [facility] Vaccine [facility] .5 mL 00:00:00 [facility] [place] [facility] Influenza Virus 2019-02-12 Completed [facility] Vaccine [facility] .5 mL 00:00:00 [place] [facility] Influenza Virus 2019-02-12 Completed [facility] Vaccine [facility] .5 mL 00:00:00 [facility] [place] [facility] Influenza Virus 2019-02-12 Completed [facility] Vaccine [facility] .5 mL 00:00:00 [facility] [place] [facility] Influenza Virus 2019-02-12 Completed [facility] Vaccine [facility] .5 mL 00:00:00 [facility] Pneumococcal 2018-02-07 Completed [facility] o f Polysaccharide, 00:00:00 [place] [facility] PPSV23 (PNEUMOVAX) Branch Influenza Virus 2018-02-07 Completed [facility] Vaccine [facility] .5 mL 00:00:00 [facility] [place] [facility] Pneumococcal 2018-02-07 Completed [facility] o f Polysaccharide, 00:00:00 [place] [facility] PPSV23 (PNEUMOVAX) Branch Influenza Virus 2018-02-07 Completed [facility] Vaccine [facility] .5 mL 00:00:00 [place] [facility] 6[facility] MO [facility] Pneumococcal 2018-02-07 Completed [facility] o f Polysaccharide, 00:00:00 [place] [facility] PPSV23 (PNEUMOVAX) Branch Influenza Virus 2018-02-07 Completed [facility] Vaccine [facility] .5 mL 00:00:00 [facility] 6+ MO [facility] Pneumococcal 2018-02-07 Completed [facility] o f Polysaccharide, 00:00:00 [place] [facility] PPSV23 (PNEUMOVAX) Branch Influenza Virus 2018-02-07 Completed [facility] Vaccine [facility] .5 mL 00:00:00 [facility] 6+ MO [facility] Pneumococcal 2018-02-07 Completed [facility] o f Polysaccharide, 00:00:00 [place] [facility] PPSV23 (PNEUMOVAX) Branch Influenza Virus 2018-02-07 Completed [facility] Vaccine [facility] .5 mL 00:00:00 [facility] 6[facility] Pneumococcal 2018-02-07 Completed [facility] f Polysaccharide, 00:00:00 [place] [facility] PPSV23 (PNEUMOVAX) Branch Influenza Virus 2018-02-07 Completed [facility] Vaccine [facility] .5 mL 00:00:00 [facility] [place] [facility] 6[facility] Pneumococcal 2018-02-07 Completed [facility] f Polysaccharide, 00:00:00 [place] [facility] PPSV23 (PNEUMOVAX) Branch Influenza Virus 2018-02-07 Completed [facility] Vaccine [facility] .5 mL 00:00:00 [facility] 6[facility] Pneumococcal 2018-02-07 Completed [facility] o f Polysaccharide, 00:00:00 [place] [facility] PPSV23 (PNEUMOVAX) Branch Influenza Virus 2018-02-07 Completed [facility] Vaccine [facility] .5 mL 00:00:00 [place] [facility] Pneumococcal 2018-02-07 Completed [facility] f Polysaccharide, 00:00:00 [place] [facility] PPSV23 (PNEUMOVAX) Branch Influenza Virus 2018-02-07 Completed [facility] Vaccine [facility] .5 mL 00:00:00 [place] [facility] 6[facility] Pneumococcal 2018-02-07 Completed [facility] f Polysaccharide, 00:00:00 [place] [facility] PPSV23 (PNEUMOVAX) Branch Influenza Virus 2018-02-07 Completed [facility] Vaccine [facility] .5 mL 00:00:00 [place] [facility] 6[facility] Pneumococcal 2018-02-07 Completed [facility] f Polysaccharide, 00:00:00 [place] [facility] PPSV23 (PNEUMOVAX) Branch Influenza Virus 2018-02-07 Completed [facility] Vaccine [facility] .5 mL 00:00:00 [place] [facility] 6[facility] Pneumococcal 2018-02-07 Completed [facility] f Polysaccharide, 00:00:00 [place] [facility] PPSV23 (PNEUMOVAX) Branch Influenza Virus 2018-02-07 Completed [facility] Vaccine [facility] .5 mL 00:00:00 [place] [facility] 6[facility] Pneumococcal 2018-02-07 Completed [facility] f Polysaccharide, 00:00:00 [place] [facility] PPSV23 (PNEUMOVAX) Branch Influenza Virus 2018-02-07 Completed [facility] Vaccine [facility] .5 mL 00:00:00 [place] [facility] Pneumococcal 2018-02-07 Completed [facility] f Polysaccharide, 00:00:00 [place] [facility] PPSV23 (PNEUMOVAX) Branch Influenza Virus 2018-02-07 Completed [facility] Vaccine [facility] .5 mL 00:00:00 [place] [facility] 6[facility] Pneumococcal 2018-02-07 Completed [facility] f Polysaccharide, 00:00:00 [place] [facility] PPSV23 (PNEUMOVAX) Branch Influenza Virus 2018-02-07 Completed [facility] Vaccine [facility] .5 mL 00:00:00 [place] [facility] Pneumococcal 2018-02-07 Completed [facility] f Polysaccharide, 00:00:00 [place] [facility] PPSV23 (PNEUMOVAX) Branch Influenza Virus 2018-02-07 Completed [facility] Vaccine [facility] .5 mL 00:00:00 [place] [facility] 6[facility] Pneumococcal 2018-02-07 Completed [facility] f Polysaccharide, 00:00:00 [place] [facility] PPSV23 (PNEUMOVAX) Branch Influenza Virus 2018-02-07 Completed [facility] Vaccine [facility] .5 mL 00:00:00 [facility] 6[facility] Pneumococcal 2018-02-07 Completed [facility] o f Polysaccharide, 00:00:00 [place] [facility] PPSV23 (PNEUMOVAX) Branch Influenza Virus 2018-02-07 Completed [facility] Vaccine [facility] .5 mL 00:00:00 [facility] [place] [facility] 6[facility] Pneumococcal 2018-02-07 Completed [facility] o f Polysaccharide, 00:00:00 [place] [facility] PPSV23 (PNEUMOVAX) Branch Influenza Virus 2018-02-07 Completed [facility] Vaccine [facility] .5 mL 00:00:00 [facility] [place] [facility] 6[facility] Pneumococcal 2018-02-07 Completed [facility] o f Polysaccharide, 00:00:00 [place] [facility] PPSV23 (PNEUMOVAX) Branch Influenza Virus 2018-02-07 Completed [facility] Vaccine [facility] .5 mL 00:00:00 [place] [facility] 6+ MO [facility] Pneumococcal 2018-02-07 Completed [facility] o f Polysaccharide, 00:00:00 [place] [facility] PPSV23 (PNEUMOVAX) Branch Influenza Virus 2018-02-07 Completed [facility] Vaccine [facility] .5 mL 00:00:00 [place] [facility] 6+ MO [facility] Pneumococcal 2018-02-07 Completed [facility] o f Polysaccharide, 00:00:00 [place] [facility] PPSV23 (PNEUMOVAX) Branch Influenza Virus 2018-02-07 Completed [facility] Vaccine [facility] .5 mL 00:00:00 [facility] [place] [facility] 6[facility] Pneumococcal 2018-02-07 Completed [facility] o f Polysaccharide, 00:00:00 [place] [facility] PPSV23 (PNEUMOVAX) Branch Influenza Virus 2018-02-07 Completed [facility] Vaccine [facility] .5 mL 00:00:00 [facility] [place] [facility] 6[facility] Pneumococcal 2018-02-07 Completed [facility] o f Polysaccharide, 00:00:00 [place] [facility] PPSV23 (PNEUMOVAX) Branch Influenza Virus 2018-02-07 Completed [facility] Vaccine [facility] .5 mL 00:00:00 [facility] [place] [facility] 6[facility] Pneumococcal 2018-02-07 Completed [facility] o f Polysaccharide, 00:00:00 [place] [facility] PPSV23 (PNEUMOVAX) Branch Influenza Virus 2018-02-07 Completed [facility] Vaccine [facility] .5 mL 00:00:00 [place] [facility] 6[facility] Pneumococcal 2018-02-07 Completed [facility] o f Polysaccharide, 00:00:00 [place] [facility] PPSV23 (PNEUMOVAX) Branch Influenza Virus 2018-02-07 Completed [facility] Vaccine [facility] .5 mL 00:00:00 [place] [facility] 6[facility] Pneumococcal 2018-02-07 Completed [facility] o f Polysaccharide, 00:00:00 [place] [facility] PPSV23 (PNEUMOVAX) Branch Influenza Virus 2018-02-07 Completed [facility] Vaccine [facility] .5 mL 00:00:00 [place] [facility] 6[facility] Pneumococcal 2018-02-07 Completed [facility] o f Polysaccharide, 00:00:00 [place] [facility] PPSV23 (PNEUMOVAX) Branch Influenza Virus 2018-02-07 Completed [facility] Vaccine [facility] .5 mL 00:00:00 [place] [facility] 6[facility] Pneumococcal 2018-02-07 Completed [facility] f Polysaccharide, 00:00:00 [place] [facility] PPSV23 (PNEUMOVAX) Branch Influenza Virus 2018-02-07 Completed [facility] Vaccine [facility] .5 mL 00:00:00 [place] [facility] 6[facility] Pneumococcal 2018-02-07 Completed [facility] o f Polysaccharide, 00:00:00 [place] [facility] PPSV23 (PNEUMOVAX) Branch Influenza Virus 2018-02-07 Completed [facility] Vaccine [facility] .5 mL 00:00:00 [place] [facility] 6[facility] Pneumococcal 2018-02-07 Completed [facility] o f Polysaccharide, 00:00:00 [place] [facility] PPSV23 (PNEUMOVAX) Branch Influenza Virus 2018-02-07 Completed [facility] Vaccine [facility] .5 mL 00:00:00 [facility] [place] [facility] 6[facility] Pneumococcal 2018-02-07 Completed [facility] o f Polysaccharide, 00:00:00 [place] [facility] PPSV23 (PNEUMOVAX) Branch Influenza Virus 2018-02-07 Completed [facility] Vaccine [facility] .5 mL 00:00:00 [facility] [place] [facility] 6[facility] Pneumococcal 2018-02-07 Completed [facility] o f Polysaccharide, 00:00:00 [place] [facility] PPSV23 (PNEUMOVAX) Branch Influenza Virus 2018-02-07 Completed [facility] Vaccine [facility] .5 mL 00:00:00 [place] [facility] 6[facility] Pneumococcal 2018-02-07 Completed [facility] o f Polysaccharide, 00:00:00 [place] [facility] PPSV23 (PNEUMOVAX) Branch Influenza Virus 2018-02-07 Completed [facility] Vaccine Quad .5 mL 00:00:00 [facility] 6[facility] Pneumococcal 2018-02-07 Completed [facility] o f Polysaccharide, 00:00:00 [place] [facility] PPSV23 (PNEUMOVAX) Branch Influenza Virus 2018-02-07 Completed [facility] Vaccine Quad .5 mL 00:00:00 [facility] [place] [facility] 6[facility] Pneumococcal 2018-02-07 Completed [facility] o f Polysaccharide, 00:00:00 [place] [facility] PPSV23 (PNEUMOVAX) Branch Influenza Virus 2018-02-07 Completed [facility] Vaccine Quad .5 mL 00:00:00 [place] [facility] IM 6+ MO [facility] Pneumococcal 2018-02-07 Completed [facility] Polys[facility], 00:00:00 [place] [facility] PPSV23 (PNEUMOVAX) Branch Influenza Virus 2018-02-07 Completed [facility] Vaccine [facility] .5 mL 00:00:00 [facility] 6+ MO [facility] Pneumococcal 2018-02-07 Completed [facility] Polysaccharide, 00:00:00 [place] [facility] PPSV23 (PNEUMOVAX) Branch Influenza Virus 2018-02-07 Completed [facility] .5 mL 00:00:00 [facility] 6+ MO [facility] Pneumococcal 2018-02-07 Completed [facility] Polysaccharide, 00:00:00 [place] [facility] PPSV23 (PNEUMOVAX) Branch Influenza Virus 2018-02-07 Completed [facility]ine [facility] .5 mL 00:00:00 [facility] 6+ MO [facility] Pneumococcal 2018-02-07 Completed [facility] Polysaccharide, 00:00:00 [place] [facility] PPSV23 (PNEUMOVAX) Branch Influenza Virus 2018-02-07 Completed [facility] Vaccine [facility] .5 mL 00:00:00 [facility] 6+ MO [facility] Pneumococcal 2018-02-07 Completed [facility] Polysaccharide, 00:00:00 [place] [facility] PPSV23 (PNEUMOVAX) Branch Influenza Virus 2018-02-07 Completed [facility] Vaccine [facility] .5 mL 00:00:00 [facility] 6+ MO [facility] Pneumococcal 2018-02-07 Completed [facility] Polysaccharide, 00:00:00 [place] [facility] PPSV23 (PNEUMOVAX) Branch Influenza Virus 2018-02-07 Completed [facility] Vaccine [facility] .5 mL 00:00:00 [facility] 6+ MO [facility] Pneumococcal 2018-02-07 Completed [facility] Polysaccharide, 00:00:00 [place] [facility] PPSV23 (PNEUMOVAX) Branch Influenza Virus 2018-02-07 Completed [facility] Vaccine [facility] .5 mL 00:00:00 [facility] 6+ MO [facility] Pneumococcal 2018-02-07 Completed [facility] Polysaccharide, 00:00:00 [place] [facility] PPSV23 (PNEUMOVAX) Branch Influenza Virus 2018-02-07 Completed [facility] Vaccine [facility] .5 mL 00:00:00 [facility] 6+ MO [facility] Pneumococcal 2018-02-07 Completed [facility] Polysaccharide, 00:00:00 [place] [facility] PPSV23 (PNEUMOVAX) Branch Influenza Virus 2018-02-07 Completed [facility] Vaccine [facility] .5 mL 00:00:00 [facility] 6+ MO [facility] Pneumococcal 2018-02-07 Completed [facility] Polysaccharide, 00:00:00 [facility] PPSV23 (PNEUMOVAX) [facility] Influenza Virus 2018-02-07 Completed [facility] Vaccine [facility] .5 mL 00:00:00 [facility] 6+ MO [facility] Pneumococcal 2018-02-07 Completed [facility] Polysaccharide, 00:00:00 [facility] PPSV23 (PNEUMOVAX) [facility] Influenza Virus 2018-02-07 Completed [facility] Vaccine [facility] .5 mL 00:00:00 [facility] 6+ MO [facility] Pneumococcal 2018-02-07 Completed [facility] Polysaccharide, 00:00:00 [place] [facility] PPSV23 (PNEUMOVAX) Branch Influenza Virus 2018-02-07 Completed [facility] Vaccine [facility] .5 mL 00:00:00 [facility] 6+ MO [facility] Pneumococcal 2018-02-07 Completed [facility] Polysaccharide, 00:00:00 [place] [facility] PPSV23 (PNEUMOVAX) Branch Influenza Virus 2018-02-07 Completed [facility] Vaccine [facility] .5 mL 00:00:00 [facility] 6+ MO [facility] Pneumococcal 2018-02-07 Completed [facility] Polysaccharide, 00:00:00 [place] [facility] PPSV23 (PNEUMOVAX) Branch Influenza Virus 2018-02-07 Completed [facility]ine [facility] .5 mL 00:00:00 [facility] 6+ MO [facility] Pneumococcal 2018-02-07 Completed [facility] Polysaccharide, 00:00:00 [place] [facility] PPSV23 (PNEUMOVAX) Branch Influenza Virus 2018-02-07 Completed [facility]ine [facility] .5 mL 00:00:00 [facility] 6+ MO [facility] Pneumococcal 2018-02-07 Completed [facility] Polysaccharide, 00:00:00 [place] [facility] PPSV23 (PNEUMOVAX) Branch Influenza Virus 2018-02-07 Completed [facility] Vaccine [facility] .5 mL 00:00:00 [facility] 6+ MO [facility] Pneumococcal 2018-02-07 Completed [facility] Polysaccharide, 00:00:00 [place] [facility] PPSV23 (PNEUMOVAX) Branch Influenza Virus 2018-02-07 Completed [facility] Vaccine [facility] .5 mL 00:00:00 [facility] 6+ MO [facility] Pneumococcal 2018-02-07 Completed [facility] Polysaccharide, 00:00:00 [place] [facility] PPSV23 (PNEUMOVAX) Branch Influenza Virus 2018-02-07 Completed [facility] Vaccine [facility] .5 mL 00:00:00 [facility] 6+ MO [facility] Pneumococcal 2018-02-07 Completed [facility] Polysaccharide, 00:00:00 [place] [facility] PPSV23 (PNEUMOVAX) Branch Influenza Virus 2018-02-07 Completed [facility] Vaccine [facility] .5 mL 00:00:00 [facility] 6+ MO [facility] Pneumococcal 2018-02-07 Completed [facility] Polysaccharide, 00:00:00 [place] [facility] PPSV23 (PNEUMOVAX) Branch Influenza Virus 2018-02-07 Completed [facility] Vaccine [facility] .5 mL 00:00:00 [facility] 6+ MO [facility] Pneumococcal 2018-02-07 Completed [facility] Polysaccharide, 00:00:00 [place] [facility] PPSV23 (PNEUMOVAX) Branch Influenza Virus 2018-02-07 Completed [facility] Vaccine [facility] .5 mL 00:00:00 [facility] 6+ MO [facility] Pneumococcal 2018-02-07 Completed [facility] Polysaccharide, 00:00:00 [place] [facility] PPSV23 (PNEUMOVAX) Branch Influenza Virus 2018-02-07 Completed [facility] Vaccine [facility] .5 mL 00:00:00 [facility] 6+ MO [facility] Pneumococcal 2018-02-07 Completed [facility] Polysaccharide, 00:00:00 [place] [facility] PPSV23 (PNEUMOVAX) Branch Influenza Virus 2018-02-07 Completed [facility] Vaccine [facility] .5 mL 00:00:00 [facility] 6+ MO [facility] Pneumococcal 2018-02-07 Completed [facility] Polysaccharide, 00:00:00 [place] [facility] PPSV23 (PNEUMOVAX) Branch Influenza Virus 2018-02-07 Completed [facility] Vaccine [facility] .5 mL 00:00:00 [facility] 6+ MO [facility] Pneumococcal 2018-02-07 Completed [facility] Polysaccharide, 00:00:00 [place] [facility] PPSV23 (PNEUMOVAX) Branch Influenza Virus 2018-02-07 Completed [facility] Vaccine [facility] .5 mL 00:00:00 [facility] 6+ MO [facility] Pneumococcal 2018-02-07 Completed [facility] Polysaccharide, 00:00:00 [place] [facility] PPSV23 (PNEUMOVAX) Branch Influenza Virus 2018-02-07 Completed [facility] Vaccine [facility] .5 mL 00:00:00 [facility] 6+ MO [facility] Pneumococcal 2018-02-07 Completed [facility] Polysaccharide, 00:00:00 [place] [facility] PPSV23 (PNEUMOVAX) Branch Influenza Virus 2018-02-07 Completed [facility] Vaccine [facility] .5 mL 00:00:00 [facility] 6+ MO [facility] Pneumococcal 2018-02-07 Completed [facility] Polysaccharide, 00:00:00 [place] [facility] PPSV23 (PNEUMOVAX) Branch Influenza Virus 2018-02-07 Completed [facility] Vaccine [facility] .5 mL 00:00:00 [facility] 6+ MO [facility] Pneumococcal 2018-02-07 Completed [facility] Polysaccharide, 00:00:00 [place] [facility] PPSV23 (PNEUMOVAX) Branch Influenza Virus 2018-02-07 Completed [facility] Vaccine [facility] .5 mL 00:00:00 [facility] 6+ MO [facility] Pneumococcal 2018-02-07 Completed [facility] Polysaccharide, 00:00:00 [place] [facility] PPSV23 (PNEUMOVAX) Branch Influenza Virus 2018-02-07 Completed [facility] Vaccine [facility] .5 mL 00:00:00 [facility] 6+ MO [facility] Pneumococcal 2018-02-07 Completed [facility] Polysaccharide, 00:00:00 [place] [facility] PPSV23 (PNEUMOVAX) Branch Influenza Virus 2018-02-07 Completed [facility] Vaccine [facility] .5 mL 00:00:00 [facility] 6+ MO [facility] Pneumococcal 2018-02-07 Completed [facility] Polysaccharide, 00:00:00 [place] [facility] PPSV23 (PNEUMOVAX) Branch Influenza Virus 2018-02-07 Completed [facility] Vaccine [facility] .5 mL 00:00:00 [facility] 6+ MO [facility] Pneumococcal 2018-02-07 Completed [facility] Polysaccharide, 00:00:00 [place] [facility] PPSV23 (PNEUMOVAX) Branch Influenza Virus 2018-02-07 Completed [facility] Vaccine [facility] .5 mL 00:00:00 [facility] 6+ MO [facility] Pneumococcal 2018-02-07 Completed [facility] Polysaccharide, 00:00:00 [place] [facility] PPSV23 (PNEUMOVAX) Branch Influenza Virus 2018-02-07 Completed [facility] Vaccine [facility] .5 mL 00:00:00 [facility] 6+ MO [facility] Pneumococcal 2018-02-07 Completed [facility] Polysaccharide, 00:00:00 [place] [facility] PPSV23 (PNEUMOVAX) Branch Influenza Virus 2018-02-07 Completed [facility] Vaccine [facility] .5 mL 00:00:00 [facility] 6+ MO [facility] Pneumococcal 2018-02-07 Completed [facility] Polysaccharide, 00:00:00 [place] [facility] PPSV23 (PNEUMOVAX) Branch Influenza Virus 2018-02-07 Completed [facility] Vaccine [facility] .5 mL 00:00:00 [facility] 6+ MO [facility] Pneumococcal 2018-02-07 Completed [facility] Polysaccharide, 00:00:00 [facility] PPSV23 (PNEUMOVAX) Branch Influenza Virus 2018-02-07 Completed [facility] Vaccine [facility] .5 mL 00:00:00 [facility] 6+ MO [facility] Pneumococcal 2018-02-07 Completed [facility] Polysaccharide, 00:00:00 [facility] PPSV23 (PNEUMOVAX) Branch Influenza Virus 2018-02-07 Completed [facility] Vaccine Quad .5 mL 00:00:00 [facility] 6+ MO [facility] Pneumococcal 2018-02-07 Completed [facility] Polysaccharide, 00:00:00 [place] [facility] PPSV23 (PNEUMOVAX) Branch Influenza Virus 2018-02-07 Completed [facility] Vaccine Quad .5 mL 00:00:00 [facility] 6+ MO [facility] Pneumococcal 2018-02-07 Completed [facility] Polysaccharide, 00:00:00 [place] [facility] PPSV23 (PNEUMOVAX) Branch Influenza Virus 2018-02-07 Completed [facility] Vaccine Quad .5 mL 00:00:00 [facility] 6+ MO [facility] Pneumococcal 2018-02-07 Completed [facility] Polysaccharide, 00:00:00 [place] [facility] PPSV23 (PNEUMOVAX) Branch Influenza Virus 2018-02-07 Completed [facility] Vaccine Quad .5 mL 00:00:00 [facility] 6+ MO [facility] Pneumococcal 2018-02-07 Completed [facility] Polysaccharide, 00:00:00 [place] [facility] PPSV23 (PNEUMOVAX) Branch Influenza Virus 2018-02-07 Completed [facility] Vaccine Quad .5 mL 00:00:00 [facility] 6+ MO [facility] Pneumococcal 2018-02-07 Completed [facility] f Polysaccharide, 00:00:00 [place] [facility] PPSV23 (PNEUMOVAX) Branch Influenza Virus 2018-02-07 Completed [facility] Vaccine Quad .5 mL 00:00:00 [facility] 6+ MO [facility] Pneumococcal 2018-02-07 Completed [facility] f Polysaccharide, 00:00:00 [place] [facility] PPSV23 (PNEUMOVAX) Branch Influenza Virus 2018-02-07 Completed [facility] Vaccine Quad .5 mL 00:00:00 [facility] 6+ MO [facility] Pneumococcal 2018-02-07 Completed [facility] Polysaccharide, 00:00:00 [place] [facility] PPSV23 (PNEUMOVAX) Branch Influenza Virus 2018-02-07 Completed [facility] Vaccine Quad .5 mL 00:00:00 [facility] 6+ MO [facility] Pneumococcal 2018-02-07 Completed [facility] Polysaccharide, 00:00:00 [place] [facility] PPSV23 (PNEUMOVAX) Branch Influenza Virus 2018-02-07 Completed [facility] Vaccine Quad .5 mL 00:00:00 [facility] 6+ MO [facility] Pneumococcal 2018-02-07 Completed [facility] f Polysaccharide, 00:00:00 [place] [facility] PPSV23 (PNEUMOVAX) Branch Influenza Virus 2018-02-07 Completed [facility] Vaccine Quad .5 mL 00:00:00 [facility] 6+ MO [facility] Pneumococcal 2018-02-07 Completed [facility] f Polysaccharide, 00:00:00 [place] [facility] PPSV23 (PNEUMOVAX) Branch Influenza Virus 2018-02-07 Completed [facility] Vaccine Quad .5 mL 00:00:00 [facility] 6+ MO [facility] Pneumococcal 2018-02-07 Completed [facility] f Polysaccharide, 00:00:00 [place] [facility] PPSV23 (PNEUMOVAX) Branch Influenza Virus 2018-02-07 Completed [facility] Vaccine Quad .5 mL 00:00:00 [facility] 6+ MO [facility] Pneumococcal 2018-02-07 Completed [facility] f Polysaccharide, 00:00:00 [place] [facility] PPSV23 (PNEUMOVAX) Branch Influenza Virus 2018-02-07 Completed [facility] Vaccine Quad .5 mL 00:00:00 [facility] 6+ MO [facility] Pneumococcal 2018-02-07 Completed [facility] f Polysaccharide, 00:00:00 [place] [facility] PPSV23 (PNEUMOVAX) Branch Influenza Virus 2018-02-07 Completed [facility] Vaccine Quad .5 mL 00:00:00 [facility] 6+ MO [facility] Pneumococcal 2018-02-07 Completed [facility] f Polysaccharide, 00:00:00 [place] [facility] PPSV23 (PNEUMOVAX) Branch Influenza Virus 2018-02-07 Completed [facility] Vaccine Quad .5 mL 00:00:00 [facility] 6+ MO [facility] Pneumococcal 2018-02-07 Completed [facility] f Polysaccharide, 00:00:00 [place] [facility] PPSV23 (PNEUMOVAX) Branch Influenza Virus 2018-02-07 Completed [facility] Vaccine Quad .5 mL 00:00:00 [facility] 6+ MO [facility] Pneumococcal 2018-02-07 Completed [facility] f Polysaccharide, 00:00:00 [place] [facility] PPSV23 (PNEUMOVAX) Branch Influenza Virus 2018-02-07 Completed [facility] Vaccine Quad .5 mL 00:00:00 [facility] 6+ MO [facility] Pneumococcal 2018-02-07 Completed [facility] f Polysaccharide, 00:00:00 [place] [facility] PPSV23 (PNEUMOVAX) Branch Influenza Virus 2018-02-07 Completed [facility] Vaccine Quad .5 mL 00:00:00 [facility] 6+ MO [facility] Pneumococcal 2018-02-07 Completed [facility] Polysaccharide, 00:00:00 [place] [facility] PPSV23 (PNEUMOVAX) Branch Influenza Virus 2018-02-07 Completed [facility] Vaccine Quad .5 mL 00:00:00 [facility] 6+ MO [facility] Pneumococcal 2018-02-07 Completed [facility] o f Polysaccharide, 00:00:00 [place] [facility] PPSV23 (PNEUMOVAX) Branch Influenza Virus 2018-02-07 Completed [facility] Vaccine Quad .5 mL 00:00:00 [facility] IM 6+ MO Branch Pneumococcal 2018-02-07 Completed [facility] o f Polysaccharide, 00:00:00 [place] [facility] PPSV23 (PNEUMOVAX) Branch Influenza Virus 2018-02-07 Completed [facility] Vaccine Quad .5 mL 00:00:00 [facility] 6+ MO [facility] Pneumococcal 2018-02-07 Completed [facility] o f Polysaccharide, 00:00:00 [place] [facility] PPSV23 (PNEUMOVAX) Branch Influenza Virus 2018-02-07 Completed [facility] Vaccine Quad .5 mL 00:00:00 [facility] IM 6+ MO Branch Pneumococcal 2018-02-07 Completed [facility] o f Polysaccharide, 00:00:00 [place] [facility] PPSV23 (PNEUMOVAX) Branch Influenza Virus 2018-02-07 Completed [facility] Vaccine Quad .5 mL 00:00:00 [facility] 6+ MO Branch Pneumococcal 2018-02-07 Completed [facility] o f Polysaccharide, 00:00:00 [place] [facility] PPSV23 (PNEUMOVAX) Branch Influenza Virus 2018-02-07 Completed [facility] Vaccine Quad .5 mL 00:00:00 [facility] 6+ MO Branch TDAP 2015-04-14 Completed [facility] of 00:00:00 [facility] TDAP 2015-04-14 Completed [facility] of 00:00:00 [facility] TDAP 2015-04-14 Completed [facility] of 00:00:00 [facility] TDAP 2015-04-14 Completed [facility] of 00:00:00 [facility] TDAP 2015-04-14 Completed [facility] 00:00:00 [facility] TDAP 2015-04-14 Completed [facility] 00:00:00 [facility] TDAP 2015-04-14 Completed [facility] of 00:00:00 [facility] TDAP 2015-04-14 Completed [facility] 00:00:00 [facility] TDAP 2015-04-14 Completed [facility] of 00:00:00 [facility] TDAP 2015-04-14 Completed [facility] of 00:00:00 [facility] TDAP 2015-04-14 Completed [facility] of 00:00:00 [facility] TDAP 2015-04-14 Completed [facility] of 00:00:00 [facility] TDAP 2015-04-14 Completed [facility] of 00:00:00 [facility] TDAP 2015-04-14 Completed [facility] 00:00:00 [facility] TDAP 2015-04-14 Completed [facility] 00:00:00 [facility] TDAP 2015-04-14 Completed [facility] 00:00:00 [facility] TDAP 2015-04-14 Completed [facility] of 00:00:00 [facility] TDAP 2015-04-14 Completed [facility] of 00:00:00 [facility] TDAP 2015-04-14 Completed [facility] of 00:00:00 [facility] TDAP 2015-04-14 Completed [facility] of 00:00:00 [facility] TDAP 2015-04-14 Completed [facility] of 00:00:00 [facility] TDAP 2015-04-14 Completed [facility] of 00:00:00 [facility] TDAP 2015-04-14 Completed [facility] of 00:00:00 [facility] TDAP 2015-04-14 Completed [facility] of 00:00:00 [facility] TDAP 2015-04-14 Completed [facility] of 00[facility]00:00 [facility] TDAP 2015-04-14 Completed [facility] of 00:00:00 [facility] TDAP 2015-04-14 Completed [facility] of 00[facility]00:00 [facility] TDAP 2015-04-14 Completed [facility] of 00:00:00 [facility] TDAP 2015-04-14 Completed [facility] of 00:00:00 [facility] TDAP 2015-04-14 Completed [facility] of 00[facility]00:00 [facility] TDAP 2015-04-14 Completed [facility] of 00:00:00 [facility] TDAP 2015-04-14 Completed [facility] of 00:00:00 [facility] TDAP 2015-04-14 Completed [facility] of 00:00:00 [facility] TDAP 2015-04-14 Completed [facility] of 00:00:00 [facility] TDAP 2015-04-14 Completed [facility] of 00:00:00 [facility] TDAP 2015-04-14 Completed [facility] of 00:00:00 [facility] TDAP 2015-04-14 Completed [facility] of 00:00:00 [facility] TDAP 2015-04-14 Completed [facility] of 00:00:00 [facility] TDAP 2015-04-14 Completed [facility] 00:00:00 [facility] TDAP 2015-04-14 Completed [facility] of 00:00:00 [facility] TDAP 2015-04-14 Completed [facility] of 00:00:00 [facility] TDAP 2015-04-14 Completed [facility] of 00:00:00 [facility] TDAP 2015-04-14 Completed [facility] of 00:00:00 [facility] TDAP 2015-04-14 Completed [facility] of 00:00:00 [facility] TDAP 2015-04-14 Completed [facility] of 00:00:00 [facility] TDAP 2015-04-14 Completed [facility] of 00:00:00 [facility] TDAP 2015-04-14 Completed [facility] of 00:00:00 [facility] TDAP 2015-04-14 Completed [facility] of 00:00:00 [facility] TDAP 2015-04-14 Completed [facility] of 00:00:00 [facility] TDAP 2015-04-14 Completed [facility] of 00:00:00 [facility] TDAP 2015-04-14 Completed [facility] of 00:00:00 [facility] TDAP 2015-04-14 Completed [facility] of 00:00:00 [facility] TDAP 2015-04-14 Completed [facility] of 00:00:00 [facility] TDAP 2015-04-14 Completed [facility] of 00:00:00 [facility] TDAP 2015-04-14 Completed [facility] of 00[facility]00:00 [facility] TDAP 2015-04-14 Completed [facility] of 00:00:00 [facility] TDAP 2015-04-14 Completed [facility] of 00:00:00 [facility] TDAP 2015-04-14 Completed [facility] of 00:00:00 [facility] TDAP 2015-04-14 Completed [facility] of 00:00:00 [facility] TDAP 2015-04-14 Completed [facility] of 00:00:00 [facility] TDAP 2015-04-14 Completed [facility] of 00:00:00 [facility] TDAP 2015-04-14 Completed [facility] of 00:00:00 [facility] TDAP 2015-04-14 Completed [facility] 00:00:00 [facility] TDAP 2015-04-14 Completed [facility] of 00:00:00 [facility] TDAP 2015-04-14 Completed [facility] 00:00:00 [facility] TDAP 2015-04-14 Completed [facility] of 00:00:00 [facility] TDAP 2015-04-14 Completed [facility] of 00:00:00 [facility] TDAP 2015-04-14 Completed [facility] 00:00:00 [facility] TDAP 2015-04-14 Completed [facility] 00:00:00 [facility] TDAP 2015-04-14 Completed [facility] of 00:00:00 [facility] TDAP 2015-04-14 Completed [facility] of 00:00:00 [facility] TDAP 2015-04-14 Completed [facility] of 00:00:00 [facility] TDAP 2015-04-14 Completed [facility] of 00:00:00 [facility] TDAP 2015-04-14 Completed [facility] of 00:00:00 [facility] TDAP 2015-04-14 Completed [facility] of 00:00:00 [facility] TDAP 2015-04-14 Completed [facility] of 00:00:00 [facility] TDAP 2015-04-14 Completed [facility] of 00:00:00 [facility] TDAP 2015-04-14 Completed [facility] of 00:00:00 [facility] TDAP 2015-04-14 Completed [facility] of 00:00:00 [facility] TDAP 2015-04-14 Completed [facility] of 00:00:00 [facility] TDAP 2015-04-14 Completed [facility] of 00:00:00 [facility] TDAP 2015-04-14 Completed [facility] of 00:00:00 [facility] TDAP 2015-04-14 Completed [facility] of 00:00:00 [facility] TDAP 2015-04-14 Completed [facility] of 00:00:00 [facility] TDAP 2015-04-14 Completed [facility] of 00:00:00 [facility] TDAP 2015-04-14 Completed [facility] of 00:00:00 [facility] TDAP 2015-04-14 Completed [facility] 00:00:00 [facility] TDAP 2015-04-14 Completed [facility] of 00:00:00 [facility] TDAP 2015-04-14 Completed [facility] of 00:00:00 [facility] TDAP 2015-04-14 Completed [facility] of 00:00:00 [facility] TDAP 2015-04-14 Completed [facility] of 00:00:00 [facility] TDAP 2015-04-14 Completed [facility] of 00:00:00 [facility] TDAP 2015-04-14 Completed [facility] 00:00:00 [facility] TDAP 2015-04-14 Completed [facility] of 00:00:00 [facility] TDAP 2015-04-14 Completed [facility] of 00:00:00 [facility] TDAP 2015-04-14 Completed [facility] 00:00:00 [facility] TDAP 2015-04-14 Completed [facility] 00:00:00 [facility] Vital Signs Vital Name Observation Time Observation Value Comments Source Systolic blood 2022-08-21 123 mm[Hg] [facility] of pressure 17:55:00 [facility] Diastolic blood 2022-08-21 87 mm[Hg] [facility] o f pressure 17:55:00 [facility] Heart rate 2022-08-21 94 /min [facility] of 17:55:00 [facility] Body temperature 2022-08-21 36.17 Jo [facility] of 17:55:00 [facility] Respiratory rate 2022-08-21 20 /min [facility] of 17:55:00 [facility] Body height 2022-08-21 170.2 cm University of 17:55:00 [facility] Body weight 2022-08-21 85.004 kg University of 17:55:00 [facility] BMI 2022-08-21 29.35 kg/m2 University of 17:55:00 [facility] Oxygen saturation 2022-08-21 96 /min [facility] in Arterial blood 17:55:00 [facility] by Pulse oximetry Branch Systolic blood 2022-08-09 125 mm[Hg] University of pressure 15:10:00 [facility] Diastolic blood 2022-08-09 80 mm[Hg] University o f pressure 15:10:00 [facility] Heart rate 2022-08-09 92 /min University of 15:10:00 [facility] Body height 2022-08-09 170.2 cm University of 15:10:00 [facility] Body weight 2022-08-09 85.049 kg University of 15:10:00 [facility] BMI 2022-08-09 29.37 kg/m2 University of 15:10:00 [facility] Oxygen saturation 2022-08-09 95 /min University of in Arterial blood 15:10:00 [place] [facility] by Pulse oximetry Branch Systolic blood 2022-07-11 131 mm[Hg] [facility] pressure 19:29:00 [facility] Diastolic blood 2022-07-11 84 mm[Hg] University o f pressure 19:29:00 [facility] Heart rate 2022-07-11 96 /min University of 19:29:00 [facility] Body temperature 2022-07-11 37.67 Jo University of 19:29:00 [facility] Body height 2022-07-11 170.2 cm University of 19:29:00 [facility] Body weight 2022-07-11 85.276 kg University of 19:29:00 [facility] BMI 2022-07-11 29.44 kg/m2 University of 19:29:00 [facility] Oxygen saturation 2022-07-11 95 /min University of in Arterial blood 19:29:00 [place] [facility] by Pulse oximetry Branch Systolic blood 2022-06-27 142 mm[Hg] [facility] pressure 19:14:00 [facility] Diastolic blood 2022-06-27 87 mm[Hg] University o f pressure 19:14:00 [facility] Heart rate 2022-06-27 94 /min University of 19:13:00 [facility] Body temperature 2022-06-27 36.83 Jo University of 19:13:00 [facility] Respiratory rate 2022-06-27 16 /min University of 19:13:00 [facility] Body height 2022-06-27 170.2 cm University of 19:13:00 [facility] Body weight 2022-06-27 85.367 kg University of 19:13:00 [facility] BMI 2022-06-27 29.48 kg/m2 University of 19:13:00 [facility] Oxygen saturation 2022-06-27 95 /min University of in Arterial blood 19:13:00 [place] [facility] by Pulse oximetry Branch Systolic blood 2022-06-18 133 mm[Hg] [facility] pressure 17:11:00 [facility] Diastolic blood 2022-06-18 86 mm[Hg] University o f pressure 17:11:00 [facility] Heart rate 2022-06-18 88 /min University of 17:11:00 [facility] Body temperature 2022-06-18 36.11 Jo University of 17:11:00 [facility] Body height 2022-06-18 170.2 cm University of 17:11:00 [facility] Body weight 2022-06-18 84.823 kg University of 17:11:00 [facility] BMI 2022-06-18 29.29 kg/m2 University of 17:11:00 [facility] Oxygen saturation 2022-06-18 93 /min University of in Arterial blood 17:11:00 [place] [facility] by Pulse oximetry Branch Systolic blood 2022-06-13 124 mm[Hg] [facility] pressure 15:32:00 [facility] Diastolic blood 2022-06-13 81 mm[Hg] University o f pressure 15:32:00 [facility] Heart rate 2022-06-13 80 /min University of 15:32:00 [facility] Body height 2022-06-13 170.2 cm University of 15:32:00 [facility] Body weight 2022-06-13 84.823 kg University of 15:32:00 [facility] BMI 2022-06-13 29.29 kg/m2 University of 15:32:00 [facility] Oxygen saturation 2022-06-13 94 /min University of in Arterial blood 15:32:00 [facility] by Pulse oximetry Branch Systolic blood 2022-06-11 150 mm[Hg] [facility] of pressure 18:19:00 [facility] Diastolic blood 2022-06-11 87 mm[Hg] University o f pressure 18:19:00 [facility] Body temperature 2022-06-11 36.78 Jo University of 18:19:00 [facility] Respiratory rate 2022-06-11 18 /min University of 18:19:00 [facility] Heart rate 2022-06-11 90 /min University of 15:03:00 [facility] Oxygen saturation 2022-06-11 95 /min University of in Arterial blood 15:03:00 [facility] by Pulse oximetry Branch Body weight 2022-06-11 87.499 kg University of 09:42:00 [facility] BMI 2022-06-11 30.21 kg/m2 University of 09:42:00 [facility] Body height 2022-06-06 170.2 cm University of 16:57:00 [facility] Systolic blood 2022-06-01 144 mm[Hg] [facility] of pressure 19:22:00 [facility] Diastolic blood 2022-06-01 84 mm[Hg] University o f pressure 19:22:00 [facility] Heart rate 2022-06-01 101 /min University of 19:21:00 [facility] Body temperature 2022-06-01 36.72 Jo University of 19:21:00 [facility] Respiratory rate 2022-06-01 20 /min University of 19:21:00 [facility] Body height 2022-06-01 213.4 cm University of 19:21:00 [facility] Body weight 2022-06-01 86.183 kg University of 19:21:00 [facility] BMI 2022-06-01 18.93 kg/m2 University of 19:21:00 [facility] Oxygen saturation 2022-06-01 95 /min University of in Arterial blood 19:21:00 [facility] by Pulse oximetry Branch Systolic blood 2022-03-29 116 mm[Hg] [facility] of pressure 17:39:00 [facility] Diastolic blood 2022-03-29 77 mm[Hg] University o f pressure 17:39:00 [facility] Heart rate 2022-03-29 96 /min University of 17:39:00 [facility] Body temperature 2022-03-29 37.28 Jo University of 17:39:00 [facility] Body height 2022-03-29 170.2 cm University of 17:39:00 [facility] Body weight 2022-03-29 85.276 kg University of 17:39:00 [facility] BMI 2022-03-29 29.44 kg/m2 University of 17:39:00 [facility] Oxygen saturation 2022-03-29 93 /min University of in Arterial blood 17:39:00 [place] [facility] by Pulse oximetry Branch Oxygen saturation 2022-03-28 91 /min University of in Arterial blood 21:43:00 [place] [facility] by Pulse oximetry Branch Oxygen saturation 2022-03-28 95 /min University of in Arterial blood 21:02:00 [facility] by Pulse oximetry Branch Systolic blood 2022-03-28 96 mm[Hg] [facility] of pressure 21:01:00 [facility] Diastolic blood 2022-03-28 62 mm[Hg] University o f pressure 21:01:00 [facility] Heart rate 2022-03-28 98 /min University of 21:01:00 [facility] Body temperature 2022-03-28 36.39 Jo University of 21:01:00 [facility] Respiratory rate 2022-03-28 16 /min University of 21:01:00 [facility] Body weight 2022-03-28 87.091 kg University of 21:01:00 [facility] BMI 2022-03-28 30.07 kg/m2 University of 21:01:00 [facility] Systolic blood 2022-03-11 119 mm[Hg] [facility] of pressure 20:34:00 [facility] Diastolic blood 2022-03-11 78 mm[Hg] University o f pressure 20:34:00 [facility] Heart rate 2022-03-11 89 /min University of 20:34:00 [facility] Body temperature 2022-03-11 36.72 Jo University of 20:34:00 [facility] Respiratory rate 2022-03-11 17 /min University of 20:34:00 [facility] Body height 2022-03-11 170.2 cm University of 20:34:00 [facility] Body weight 2022-03-11 87.136 kg University of 20:34:00 [facility] BMI 2022-03-11 30.09 kg/m2 University of 20:34:00 [facility] Oxygen saturation 2022-03-11 90 /min University of in Arterial blood 20:34:00 [facility] by Pulse oximetry Branch Systolic blood 2022-02-25 138 mm[Hg] [facility] pressure 20:09:00 [facility] Diastolic blood 2022-02-25 88 mm[Hg] University o f pressure 20:09:00 [facility] Heart rate 2022-02-25 97 /min University of 20:09:00 [facility] Respiratory rate 2022-02-25 17 /min University of 20:09:00 [facility] Body height 2022-02-25 170.2 cm University of 20:09:00 [facility] Body weight 2022-02-25 86.637 kg University of 20:09:00 [facility] BMI 2022-02-25 29.91 kg/m2 University of 20:09:00 [facility] Oxygen saturation 2022-02-25 90 /min University of in Arterial blood 20:09:00 [place] [facility] by Pulse oximetry Branch Systolic blood 2022-02-14 102 mm[Hg] [facility] pressure 14:38:00 [facility] Diastolic blood 2022-02-14 71 mm[Hg] University o f pressure 14:38:00 [facility] Heart rate 2022-02-14 111 /min University of 14:38:00 [facility] Body temperature 2022-02-14 37.22 Jo University of 14:38:00 [facility] Respiratory rate 2022-02-14 19 /min University of 14:38:00 [facility] Body height 2022-02-14 170.2 cm University of 14:38:00 [facility] Body weight 2022-02-14 85.049 kg University of 14:38:00 [facility] BMI 2022-02-14 29.37 kg/m2 University of 14:38:00 [facility] Oxygen saturation 2022-02-14 92 /min pt states that Universi ty of in Arterial blood 14:38:00 is good for [facility] by Pulse oximetry her. Branch Systolic blood 2022-02-08 125 mm[Hg] University of pressure 14:30:00 [facility] Diastolic blood 2022-02-08 82 mm[Hg] University o f pressure 14:30:00 [facility] Heart rate 2022-02-08 100 /min University of 14:30:00 [facility] Body temperature 2022-02-08 37 Jo University of 14:30:00 [facility] Body height 2022-02-08 170.2 cm University of 14:30:00 [facility] Body weight 2022-02-08 85.639 kg University of 14:30:00 [facility] BMI 2022-02-08 29.57 kg/m2 University of 14:30:00 [facility] Oxygen saturation 2022-02-08 93 /min University of in Arterial blood 14:30:00 [facility] by Pulse oximetry Branch Systolic blood 2022-02-05 149 mm[Hg] [facility] pressure 19:08:00 [facility] Diastolic blood 2022-02-05 97 mm[Hg] University o f pressure 19:08:00 [facility] Heart rate 2022-02-05 128 /min University of 19:04:00 [facility] Body temperature 2022-02-05 39.17 Jo University of 19:04:00 [facility] Respiratory rate 2022-02-05 16 /min University of 19:04:00 [facility] Body height 2022-02-05 170.2 cm University of 19:04:00 [facility] Body weight 2022-02-05 87.629 kg University of 19:04:00 [facility] BMI 2022-02-05 30.26 kg/m2 University of 19:04:00 [facility] Oxygen saturation 2022-02-05 99 /min University of in Arterial blood 19:04:00 [facility] by Pulse oximetry Branch Systolic blood 2022-01-21 102 mm[Hg] [facility] pressure 22:03:00 [place] [facility] Diastolic blood 2022-01-21 65 mm[Hg] University o f pressure 22:03:00 [facility] Heart rate 2022-01-21 98 /min University of :03:00 [facility] Body temperature 2022-01-21 37.22 Jo University of :03:00 [facility] Respiratory rate 2022-01-21 16 /min University of :03:00 [facility] Body height 2022-01-21 170.2 cm University of :03:00 [facility] Body weight 2022-01-21 89.721 kg University of :03:00 [facility] BMI 2022-01-21 30.98 kg/m2 University of :03:00 [facility] Oxygen saturation 2022-01-21 95 /min University of in Arterial blood 22:03:00 [facility] by Pulse oximetry Branch Systolic blood 2022-01-07 100 mm[Hg] [facility] of pressure 21:27:00 [facility] Diastolic blood 2022-01-07 69 mm[Hg] University o f pressure 21:27:00 [facility] Heart rate 2022-01-07 93 /min University of :23:00 [facility] Body height 2022-01-07 170.2 cm University of :23:00 [facility] Body weight 2022-01-07 89.676 kg University of 21:23:00 [facility] BMI 2022-01-07 30.96 kg/m2 University of 21:23:00 [facility] Oxygen saturation 2022-01-07 92 /min University of in Arterial blood 21:23:00 [facility] by Pulse oximetry Branch Systolic blood 2021-11-26 146 mm[Hg] [facility] of pressure 19:30:00 [facility] Diastolic blood 2021-11-26 79 mm[Hg] University o f pressure 19:30:00 [facility] Heart rate 2021-11-26 87 /min University of 19:28:00 [facility] Body temperature 2021-11-26 37.17 Jo University of :28:00 [facility] Body height 2021-11-26 170.2 cm University of :28:00 [facility] Body weight 2021-11-26 89.767 kg [facility] 19:28:00 [facility] BMI 2021-11-26 31.00 kg/m2 [facility] 19:28:00 [facility] Oxygen saturation 2021-11-26 96 /min [facility] in Arterial blood 19:28:00 [facility] by Pulse oximetry Branch WEIGHT 2019-10-27 92.8 kg 14:28:00 WEIGHT 2019-10-19 92.7 kg 00:00:00 WEIGHT 2019-10-13 91.6 kg 00:00:00 Systolic blood 2021-10-12 128 mm[Hg] [facility] 17:10:00 Hospital Diastolic blood 2021-10-12 65 mm[Hg] [facility] pressure 17:10:00 [facility] Heart rate 2021-10-12 100 /min [facility] 17:10:00 [facility] Body temperature 2021-10-12 36.28 Jo [facility] 17:10:00 [facility] Respiratory rate 2021-10-12 19 /min [facility] 17:10:00 [facility] Oxygen saturation 2021-10-12 98 /min [facility] in Arterial blood 17:10:00 [facility] by Pulse oximetry Body height 2021-10-12 167.6 cm [facility] 13:08:00 [facility] Body weight 2021-10-12 88.6 kg [facility] 13:08:00 [facility] BMI 2021-10-12 31.53 kg/m2 [facility] 13:08:00 [facility] Procedures Procedure Date / Time Performing Clinician Source Performed XR ABDOMEN 1 VW 2022-08-21 18:17:48 [facility] POCT URINALYSIS 2022-08-21 18:03[facility] 2022-07-11 20:03:00 Margarita Peacock [facility] REFERRAL- 2022-07-10 05:01:00 Doctor Unassigned, [facility] REQUEST/RESPONSE [facility] MISCELLANEOUS LAB ORDER 2022-07-09 09:06:00 [facility] FLU 2022-06-18 17:29:46 Rivka Raz [facility] VACC(),65+YR,0.5 Medica l Branch ML,IM,ADJUVANTED,QUAD(FLU AD) POCT GLUCOSE (AUTOMATED) 2022-06-11 18:19:00 Akilah Saenz [facility] POCT GLUCOSE (AUTOMATED) 2022-06-11 15:02:00 Akilah Saenz [facility] BASIC METABOLIC PANEL 2022-06-11 09:00:00 Deshawn High [facility] (NA, K, CL, CO2, GLUCOSE, Medica l Branch BUN, CREATININE, CA) CBC WITH DIFF 2022-06-11 09:00:00 Deshawn High [facility] POCT GLUCOSE (AUTOMATED) 2022-06-11 02:29:00 Akilah Saenz [facility] POCT GLUCOSE (AUTOMATED) 2022-06-10 22:19:00 Akilah Saenz [facility] POCT GLUCOSE (AUTOMATED) 2022-06-10 18:27:00 Akilah Saenz [facility] POCT GLUCOSE (AUTOMATED) 2022-06-10 14:35:00 Akilah Saenz [facility] MAGNESIUM 2022-06-10 08:39:00 [facility] 2022-06-10 08:39:00 Deshawn High [facility] (NA, K, CL, CO2, GLUCOSE, Medica l Branch BUN, CREATININE, CA) CBC WITH DIFF 2022-06-10 08:39:00 [facility]-B[facility] 2022-06-10 08:39:[address] [facility] POCT GLUCOSE (AUTOMATED) 2022-06-10 02:27:00 Akilah Saenz [facility] POCT GLUCOSE (AUTOMATED) 2022-06-09 22:30:00 Akilah Saenz [facility] POCT GLUCOSE (AUTOMATED) 2022-06-09 17:46:00 Akilah Saenz [facility] POCT GLUCOSE (AUTOMATED) 2022-06-09 14:01:00 Akilah Saenz [facility] BASIC METABOLIC PANEL 2022-06-09 10:47:00 [place], [facility] (NA, K, CL, CO2, GLUCOSE, Medica l Branch BUN, CREATININE, CA) CBC WITH DIFF 2022-06-09 10:47:00 Deshawn High [facility] LACTIC ACID WHOLE BLOOD 2022-06-09 10:47:00 Deshawn High [facility] POCT GLUCOSE (AUTOMATED) 2022-06-09 02:14:00 Akilah Saenz [facility] POCT GLUCOSE (AUTOMATED) 2022-06-08 22:39:00 Akilah Saenz [facility] POCT GLUCOSE (AUTOMATED) 2022-06-08 18:00:00 Akilah Saenz [facility] POCT GLUCOSE (AUTOMATED) 2022-06-08 14:22:00 Akilah Saenz [facility] BASIC METABOLIC PANEL 2022-06-08 09:21:00 Deshawn High [facility] (NA, K, CL, CO2, GLUCOSE, Medica l Branch BUN, CREATININE, CA) CBC WITH DIFF 2022-06-08 09:21:00 Deshawn High [facility] N-TERMINAL PRO-BNP 2022-06-08 09:21:[address] [facility] POCT GLUCOSE (AUTOMATED) 2022-06-08 02:35:00 Akilah Saenz [facility] POCT GLUCOSE (AUTOMATED) 2022-06-07 22:43:00 Akilah Saenz [facility] POCT GLUCOSE (AUTOMATED) 2022-06-07 17:16:00 Akilah Saenz [facility] URINE DRUG (IMMUNOASSAY) 2022-06-07 15:19:00 Juan Pablo Fisher [facility] SCREEN URINE CULTURE 2022-06-07 15:19:00 Juan Pablo Fisher o f [facility] SODIUM, URINE RANDOM 2022-06-07 15:19:[address] [facility] PROTEIN CREAT RATIO URINE 2022-06-07 15:19:00 Juan Pablo Fisher [facility] POCT GLUCOSE (AUTOMATED) 2022-06-07 13:57:00 Akilah Saenz [facility] LACTATE DEHYDROGENASE 2022-06-07 11:58:00 Natalia narda [facility] SEDIMENTATION RATE 2022-06-07 11:58:[address] [facility] CBC WITH DIFF 2022-06-07 11:58:00 Natalia [facility] CREATINE KINASE 2022-06-07 11:10:00 Natalia [facility] URIC ACID 2022-06-07 11:10:00 Natalia [facility] FERRITIN SERUM 2022-06-07 11:10:00 Natalia [facility] C-REACTIVE PROTEIN 2022-06-07 11:10:00 Natalia [facility] THYROID STIMULATING 2022-06-07 11:10:00 Natalia narda [facility] HORMONE [facility] COMP. METABOLIC PANEL 2022-06-07 11:10:00 Juan Pablo Fisehr [facility] ([id number]) [facility] LIPID PANEL ([id number])(TOTAL 2022-06-07 11:10:00 Juan Pablo [facility]IG[facility], HDL) IRON PANEL 2022-06-07 11:10:00 Natalia [facility] PROTHROMBIN TIME / INR 2022-06-07 11:10:00 Juan Pablo Fisher [facility] URINALYSIS 2022-06-07 11:10:00 Natalia narda [facility] N-TERMINAL PRO-BNP 2022-06-07 11:10:[address] [facility] PROCALCITONIN 2022-06-07 11:10:00 Natalia [facility] AC VBG + LACTIC ACID 2022-06-07 11:10:[address] [facility] POCT GLUCOSE (AUTOMATED) 2022-06-07 08:23:00 Akilah Saenz [facility] POCT GLUCOSE (AUTOMATED) 2022-06-07 03:02:00 Akilah Saenz [facility] TRANSTHORACIC ECHO (TTE) 2022-06-06 21:04:00 Akilah Saenz [facility] COMPLETE [facility] HB ECG ROUTINE & RHYTHM 2022-06-06 20:10:18 Danae Link [facility] STRIP [facility] COVID-19 (ID NOW RAPID 2022-06-06 20:10:00 Danae Link [facility] TESTING) Medical Branch LAB ONLY COVID 2022-06-06 20:10:00 Danae Link [facility] INTERPRETATION [facility] AC PANEL 21 + LACTIC ACID 2022-06-06 18:51:00 [facility] 2022-06-06 18:47:00 Danae Link [facility] TROPONIN I 2022-06-06 18:47:00 Danae Link [facility] COMP. METABOLIC PANEL 2022-06-06 18:47:00 Danae Link [facility] ([id number]) [facility] CBC WITH DIFF 2022-06-06 18:47:00 Danae Link [facility] GLYCOSYLATED HEMOGLOBIN 2022-06-06 18:47:00 Akilah Saenz [facility] (A1C) [facility] N-TERMINAL PRO-BNP 2022-06-06 18:47:[address] [facility] XR CHEST 1 VW 2022-06-06 17:33:42 Danae Link [facility] CONSENT/REFUSAL FOR 2022-06-06 16:38:54 Doctor Unassigned, [facility] DIAGNOSIS AND TREATMENT [address] POCT SARS-COV-2 ANTIGEN 2022-06-01 19:36:00 Torri Arzola [facility] (BINAX NOW) [facility] POCT MOLECULAR FLU 2022-06-01 19:30:00 Unknown, Attending [facility] POCT MOLECULAR STREP 2022-06-01 19:27:00 Unknown, Attending [facility] EXTERNAL PROVIDER RECORDS 2022-05-24 06:01:00 Doctor Unassigned, [facility] [address] [facility] CT ABDOMEN WO CONTRAST 2022-04-30 14:57:57 Raz Tineo [facility] CT THORAX WO CONTRAST 2022-04-01 20:36:46 [place] [place] [facility] XR CHEST 2 VW 2022-03-28 21:20:56 Jony Roy [facility] ASSIGNMENT OF BENEFITS 2022-03-28 19:52:23 Doctor Unassigned, [facility] EXTERNAL PROVIDER RECORDS 2022-02-28 06:01:00 Doctor Unassigned, [facility] Name [facility] POCT MOLECULAR FLU 2022-02-14 14:46:00 Unknown, Attending [facility] POCT MOLECULAR STREP 2022-02-14 14:44:00 Unknown, Attending [facility] POCT MOLECULAR FLU 2022-02-05 19:15:00 Unknown, Attending [facility] POCT MOLECULAR STREP 2022-02-05 19:13:00 Unknown, Attending [facility] POCT SARS-COV-2 ANTIGEN 2022-02-05 00:00:00 Rissa Baker [facility] (BINAX NOW) [facility] SCANNED LAB RESULTS 2022-01-21 05:01:00 Doctor Fabienne [facility] URINALYSIS 2021-11-26 22:10:00 My Tineothia [facility] URINE CULTURE 2021-11-26 22:06:00 Rivka [facility] GALV ONLY - VAGINAL 2021-11-26 22:06:00 Raz Tineo [facility] PATHOGENS BY NUCLEIC ACID [facility] TESTING COMP. METABOLIC PANEL 2021-11-26 20:45:00 Raz Tineo [facility] ([id number]) [facility] PNEUMOCOCCAL 20 CONJUGATE 2021-11-26 20:08:46 Raz Tineo [facility] (PREVNAR 20) VACCINE [facility] POC GLUCOSE 2021-10-12 15:49:00 Gamaliel [facility] CA AN ELECTIVE 2021-10-12 14:34:00 Marisela Jaquez [facility] ENDOTRACHEAL AIRWAY [employer] ORBITOTOMY 2021-10-12 14:24:00 [facility] N[facility] POC GLUCOSE 2021-10-12 13:36:00 [facility] EXTERNAL FIT DNA 2021-07-13 12:15:00 Doctor Unassigned, [facility] [address] [address] [facility] Plan of Care Planned Activity Planned Date Details Comments Source Future Scheduled 2022-08-24 Hepatitis C screening [facility] Test 23:33:59 (procedure) [code = 286602065] Future Scheduled 2022-08-24 BREAST CANCER [facility] Test 23:33:59 SCREENING [code = BREAST CANCER SCREENING] Future Scheduled 2022-08-24 COLONOSCOPY SCREENING [facility] Test 23:33:59 [code = COLONOSCOPY SCREENING] Future Scheduled 2022-08-24 SHINGLES VACCINES (1 Met [facility] Test 23:33:59 of 2) [code = SHINGLES VACCINES (1 of 2)] Future Scheduled 2022-08-24 HEPATITIS B VACCINES Met [facility] Test 23:33:59 (1 of 3 - Risk 3-dose series) [code = HEPATITIS B VACCINES (1 of 3 - Risk 3-dose series)] Future Scheduled 2022-08-24 65+ [facility]AL [facility] Test 23:33:59 VACCINE (2 - PCV) [code = 65+ PNEUMOCOCCAL VACCINE (2 - PCV)] Future Scheduled 2022-08-24 COVID-19 VACCINE (4 - [facility] Test 23:33:59 Booster for Moderna series) [code = COVID-19 VACCINE (4 - Booster for Moderna series)] Future Scheduled 2022-08-24 INFLUENZA VACCINE [facility] Test 23:33:59 [code = INFLUENZA VACCINE] Future Scheduled 2022-04-30 COVID-19 Vaccination [facility] Test 08:39:11 (#1) [code = COVID-19 MD [facility] ers[facility] Vaccination (#1)] Center Future Scheduled 2021-05-15 COVID-19 VACCINE (1) Met [facility] Test 14:46:23 [code = COVID-19 VACCINE (1)] Future Scheduled 2021-05-15 Hepatitis C screening [facility] Test 14:46:23 (procedure) [code = 203881717] Future Scheduled 2021-05-15 BREAST CANCER [facility] Test 14:46:23 SCREENING [code = BREAST CANCER SCREENING] Future Scheduled 2021-05-15 COLONOSCOPY SCREENING [facility] Test 14:46:23 [code = COLONOSCOPY SCREENING] Future Scheduled 2021-05-15 [facility] 14:46:23 (#1) [code = SHINGLES VACCINES (#1)] Future Scheduled 2021-05-15 [facility]INE [facility] 14:46:23 [code = INFLUENZA VACCINE] Future Scheduled 2021-05-15 65+ [facility]CCAL [facility] 14:46:23 VACCINE (2 of 2 - PPSV23) [code = 65+ PNEUMOCOCCAL VACCINE (2 of 2 - PPSV23)] Encounters Start End Encounter Admission Attending Care Care Encounter Source Date/Time Date/Time Type Type Clinicians Facility Department ID 2021-02-12 Emergency [facility] [id number] Univers 21:56:05 ity [facility] 2021-02-12 Emergency [facility] [id number] Univers 18:42:06 ity [facility] 2021-02-10 Emergency [facility] [id number] Univers 12:50:21 [facility] 2021-02-09 [facility] [id number] Univers 15:52:08 [facility] 2022-09-20 2022-09-20 Outpatient Bryan TINEO [facility] [id number] Univers 15:00:00 15:00:00 RAZ ity [facility] 2022-08-27 2022-08-27 Telephone AgustoFormerly [facility] 1.2.840.114 [id number] Univers 00:00:00 00:00:00 [employer] 350.1.13.10 it y [facility] 4.2.7.2.686 Jefry as ANTHONY?BLEA [phone] [address] MEDICAL OFFICE BUILDING 2022-08-26 2022-08-26 Outpatient Bryan LIN [facility] [id number] Univers 14:30:00 14:30:00 SENDIL ity of [facility] 2022-08-21 2022-08-21 Urgent Patsy Trent [facility] 1.2.840.11 4 [id number] Univers 12:30:00 14:07:31 Care Unknown, [facility] HEALTH 350.1.13.10 [facility] 4.2.7.2.686 Jefry as ANTHONY?BLEA [id number] Nd dical ELOINATALIA [address] MEDICAL OFFICE [facility] 2022-08-21 2022-08-21 Outpatient R MIELY [facility] [id number] Univers 13:01:59 13:45:00 PATSY ity [facility] 2022-08-21 2022-08-21 [facility] 1.2.840.114 [id number] Univers 13:01:59 13:45:00 Encounter [facility] 350.1.13.10 [facility] 4.2.7.2.686 Jefry as ANTHONY?BLEA [phone] Nd agustin CEETALIA 808 [facility] OFFICE [facility] 2022-08-15 2022-08-15 Case Sky [facility] 1.2.840.114 [id number] Univers 00:00:00 00:00:00 Management , Scarlett [facility] 350.1.13.10 ity of [facility] 4.2.7.2.686 Jefry as ANTHONY?BLEA [id number] Nd dical ELOINAEY 044 [facility] OFFICE [facility] 2022-08-14 2022-08-14 Pre Visit UYEN Perez 1.2.842.778 [id number] Univers 00:00:00 00:00:00 Outreach Mikhail Hunt FLASH 350.1.13.10 ity of HOSPITAL 4.2.7.2.686 Jefry as [id number] [facility] [address] 2022-08-09 2022-08-09 Dock Grader Lab, Daniel Bloom [facility] 1.2.840.1 14 [id number] Univers 11:00:00 11:15:00 Visit Raz Tineo HEALTH 350.1.13.10 ity of [place] 4.2.7.2.686 Jefry as ANTHONY?BLEA [phone] Nd dical KNEY 353 [facility] OFFICE [facility] 2022-08-09 2022-08-09 Outpatient R RIVKA [facility] [id number] Univers 10:30:00 10:47:38 RAZ villar [facility] 2022-08-09 2022-08-09 Office [facility] 1.2.840.114 [id number] Univers 10:30:00 10:47:38 Visit Raz HEALTH 350.1.13.10 it y of [place] 4.2.7.2.686 Jefry as ANTHONY?BLEA [id number] [address] OFFICE [facility] 2022-08-09 2022-08-09 Refill [facility] 1.2.840.114 [id number] Univers 00:00:00 00:00:00 Raz HEALTH 350.1.13.10 it y of [place] 4.2.7.2.686 Jefry as ANTHONY?BLEA [id number] [address] OFFICE [facility] 2022-08-02 2022-08-02 Telephone [facility] 1.2.958.252 [id number] Univers 00:00:00 00:00:00 Raz HEALTH 350.1.13.10 it y of [place] 4.2.7.2.686 Jefry as ANTHONY?BLEA [id number] [address] OFFICE [facility] 2022-07-19 2022-07-19 Telephone Pat[facility]NEW [facility] 1.2.965.861 [id number] Univers 00:00:00 00:00:00 Rama Smith [place] 350.1.13.10 i ty of [place] [id number] [address] 2022-07-11 2022-07-11 Outpatient R MADONNA [facility] [id number] Univers 14:30:00 15:05:23 MARGARITA leongjose manuel [facility] 2022-07-11 2022-07-11 Office MadonnaNEW [facility]EX[facility] 1.2.840.114 [id number] Univers 14:30:00 15:05:23 Visit Margarita A HEALTH 350.1.13.10 i ty of [place] 4.2.7.2.686 Jefry as ANTHONY?BLEA [id number] [address] OFFICE [facility] 2022-07-11 2022-07-11 Telephone Rivka [facility] 1.2.263.970 [id number] Univers 00:00:00 00:00:00 Raz HEALTH 350.1.13.10 it y [facility] 4.2.7.2.686 Jefry as ANTHONY?BLEA [id number] [address] OFFICE [facility] 2022-07-11 2022-07-11 Telephone Madonna [facility] 1.2.705.921 [id number] Univers 00:00:00 00:00:00 Margarita A HEALTH 350.1.13.10 i ty of [place] 4.2.7.2.686 Jefry as ANTHONY?BLEA [id number] [address] OFFICE [facility] 2022-07-10 2022-07-10 Orders Doctor UYEN 1.2.840.114 [id number] Univers 00:00:00 00:00:00 Only Unassigned, FLASH 350.1.13.[address] [facility] 4.2.7.2.686 Jefry as [id number] [address] 2022-07-09 2022-07-09 Lab [facility] [id number] [address] [facility] St 00:00:00 00:00:00 [facility] 2022-07-02 2022-07-02 Telephone Pat[facility]NEW [facility] 1.2.735.965 [id number] Univers 00:00:00 00:00:00 Rama Smith [place] 350.1.13.10 i ty [facility] 4.2.[place] [id number] [address] 2022-07-01 2022-07-01 Outpatient Bryan MARTINEZ [facility] [id number] Univers 09:40:00 09:40:00 TONNY ortiz [facility] 2022-06-27 2022-06-27 Urgent Jony Roy [facility] 1.2.840.114 [id number] Univers 14:00:00 14:20:00 Care Unknown, [facility] HEALTH 350.1.13.10 ity of [place] 4.2.7.2.686 Jefry as ANTHONY?BLEA [phone] Nd agustin LONG 370 [facility] OFFICE [facility] 2022-06-27 2022-06-27 Outpatient R JULIO [facility] [id number] Univers 14:00:00 14:00:00 JONY jian [facility] 2022-06-26 2022-06-26 Telephone [facility] 1.2.702.565 [id number] Univers 00:00:00 00:00:00 [facility] 350.1.13.10 it [facility] 4.2.7.2.686 Jefry as ANTHONY?BLEA [id number] Nd agustin CEE 044 [facility] OFFICE [facility] 2022-06-25 2022-06-25 Telephone Pat[facility]NEW [facility] 1.2.811.180 [id number] Univers 00:00:00 00:00:00 Rama [facility] 350.1.13.10 i ty [facility] 4.2.[place] [id number] Nd agustin [facility] 296 [facility] 2022-06-18 2022-06-18 Dock Grader Lab, [facility] 1.2.840.1 14 [id number] Univers 11:45:00 12:55:15 Visit Raz Tineo [facility] 350.1.13.10 ity of [place] 4.2.7.2.686 Jefry as ANTHONY?BLEA [phone] Nd agustin LONG 353 [facility] OFFICE [facility] 2022-06-18 2022-06-18 Outpatient R RIVKA [facility] [id number] Univers 11:00:00 11:38:01 RAZ jose manuel [facility] 2022-06-18 2022-06-18 [facility] 1.2.840.114 [id number] Univers 11:00:00 11:38:01 Visit [facility] 350.1.13.10 it y [facility] 4.2.7.2.686 Jefry as ANTHONY?BLEA [id number] Nd dical KNEY 044 [facility] OFFICE BUILDING 2022-06-13 2022-06-13 Outpatient R RENA ROLLINS [facility] [id number] Univers 09:00:00 09:51:36 RENA ROLLINS i ty of [facility] 2022-06-13 2022-06-13 Office [facility] 1.2.840.114 [id number] Univers 09:00:00 09:51:36 Visit Rena LEACH 350.1.13.10 i ty of [place]2.7.2.[place] [id number] Nd dical NAL 085 [facility] 2022-06-13 2022-06-13 Telephone Ayo [facility] 1.2.518.997 [id number] Univers 00:00:00 00:00:00 Rena LEACH 350.1.13.10 i ty [place].7.2.[place] [id number] Nd dical NAL 085 [facility] 2022-06-12 2022-06-12 Telephone Riley [facility] 1.2.108.546 [id number] Univers 00:00:00 00:00:00 Sendeugene LEACH 350.1.13.10 ity of [place]2.7.2.[place] [id number] Nd dical NAL 059 [facility] 2022-06-12 2022-06-12 Transition CHU Beltran 1.2.840.114 10 [id number] Univers 00:00:00 00:00:00 of Care Flori DOWNEY 350.1.13.10 i ty of [place]2.7.2.686 [place] [id number] [place] [address] [place] 2022-06-06 2022-06-11 Inpatient Emely SAENZ NHSTEPHY JAMES [id number] Univers 11:00:00 17:00:00 AKILAH villar of [facility] 2022-06-06 2022-06-11 [facility] Danae Link [facility] 1.2.840.1 14 [id number] Univers 11:00:00 17:00:00 Encounter Akilah Saenz 350.1.13.10 ity of [place].2.7.2.686 [place] [id number] [facility] [address] 2022-06-04 2022-06-04 Telephone Rivka NHSTEPHY 1.2.274.773 [id number] Univers 00:00:00 00:00:00 Raz HEALTH 350.1.13.10 it y of [place] 4.2.7.2.686 Jefry as ANTHONY?BLEA [id number] [facility] [address] MEDICAL OFFICE [facility] 2022-06-01 2022-06-01 Outpatient R LEODAN NHSTEPHY [facility] [id number] Univers 13:20:00 14:42:18 REENU ity of [facility] 2022-06-01 2022-06-01 Urgent Omar Mcgarry [facility] 1.2.840.11 4 [id number] Univers 13:20:00 13:40:00 Care Unknown, Attending HEALTH 350.1.13.10 ity of [place] 4.2.7.2.686 Jefry as ANTHONY?BLEA [id number] [facility] 370 [facility] OFFICE [facility] 2022-05-28 2022-05-28 Refill Rivka [facility] 1.2.840.114 [id number] Univers 00:00:00 00:00:00 Raz HEALTH 350.1.13.10 it y of [place] 4.2.7.2.686 Jefry as ANTHONY?BLEA [id number] [facility] [address] MEDICAL OFFICE [facility] 2022-05-24 2022-05-24 Orders Doctor UYEN 1.2.840.114 [id number] Univers 00:00:00 00:00:00 Only Unassigned, FLASH 350.1.13.[address] [facility] 4.2.7.2.686 Jefry as [id number] [facility] [address] 2022-05-20 2022-05-20 Refill Doctor WEBBER 1.2.840.114 [id number] Univers 00:00:00 00:00:00 Unassigned, HEALTH 350.1.13.[address] [place] 4.2.7.2.686 Jefry as ANTHONY?BLEA [id number] [address] OFFICE [facility] 2022-05-20 2022-05-20 Refill Doctor [facility] 1.2.840.114 [id number] Univers 00:00:00 00:00:00 Unassigned, HEALTH 350.1.13.[address] [place] 4.2.7.2.686 Jefry as ANTHONY?BLEA [id number] [address] OFFICE [facility] 2022-05-17 2022-05-17 Refill [facility] 1.2.840.114 [id number] Univers 00:00:00 00:00:00 Raz HEALTH 350.1.13.10 it y of [place] 4.2.7.2.686 Jefry as ANTHONY?BLEA [id number] [address] OFFICE [facility] 2022-05-09 2022-05-09 Telephone [facility] 1.2.482.569 [id number] Univers 00:00:00 00:00:00 Raz HEALTH 350.1.13.10 it y of [place] 4.2.7.2.686 Jefry as ANTHONY?BLEA [id number] [address] 2022-04-30 2022-04-30 [facility] [id number] Univers 08:39:10 23:59:00 RAZ ity of [facility] 2022-04-30 2022-04-30 [facility] 1.2.840.114 [id number] Univers 08:39:10 23:59:00 Encounter Raz [place] 350.1.13.10 ity of [place] 4.2.7.2.686 [place] [facility] [id number] [address] 2022-04-24 2022-04-24 Telephone [facility] 1.2.422.373 [id number] Univers 00:00:00 00:00:00 Raz HEALTH 350.1.13.10 it y of [place] 4.2.7.2.686 Jefry as ANTHONY?BLEA [id number] [address] OFFICE [facility] 2022-04-22 2022-04-22 Telephone [facility] 1.2.008.705 [id number] Univers 00:00:00 00:00:00 Raz HEALTH 350.1.13.10 it y of [place] 4.2.7.2.686 Jefry as ANTHONY?BLEA [id number] [address] OFFICE [facility] 2022-04-04 2022-04-04 Outpatient R RILEY [facility] [id number] Univers 13:00:00 13:00:00 SENDIL ity [facility] 2022-04-04 2022-04-04 [facility] [id number] Univers 13:00:00 13:00:00 [facility] 2022-04-03 2022-04-03 Telephone [facility] 1.2.196.116 [id number] Univers 00:00:00 00:00:00 Raz HEALTH 350.1.13.10 it y of [place] 4.2.7.2.686 Jefry as ANTHONY?BLEA [id number] [address] 2022-04-01 2022-04-01 Outpatient R GUSTABO [facility] RAD [id number] Univers 13:54:47 23:59:00 TYLER ity [facility] 2022-04-01 2022-04-01 [facility] 1.2.840.114 [id number] Univers 13:50:00 23:59:00 Encounter Tyler LEACH 350.1.13.10 ity [facility] [place].2.7.2.686 [place] [id number] [address] 2022-04-01 2022-04-01 Telephone [facility]NEW [facility] 1.2.094.034 [id number] Univers 00:00:00 00:00:00 Tyler HEALTH 350.1.13.10 it [facility] 4.2.7.2.686 Jefry as ANTHONY?BLEA [id number] [address] OFFICE [facility] 2022-03-292022-03-29 Office Gustabo [facility] 1.2.840.114 [id number] Univers 11:30:00 12:00:00 Visit [facility] 350.1.13.10 it y of [place] 4.2.7.2.686 Jefry as ANTHONY?BLEA [id number] Me agustin [address] MEDICAL OFFICE [facility] 2022-03-29 2022-03-29 Outpatient R GUSTABO [facility] [id number] Univers 11:30:00 11:30:00 TYLER ity of [facility] 2022-03-28 2022-03-28 [facility] 1.2.856.451 [id number] Univers 15:10:02 23:59:[address] [facility] 350.1.13.10 ity of [place] 4.2.7.2.686 Jefry as ANTHONY?BLEA [id number] Nd agustin LONG 808 [facility] OFFICE [facility] 2022-03-28 2022-03-28 Dock Grader Lab, [facility] 1.2.840.1 14 [id number] Univers 15:30:00 15:45:00 Visit Radiology [facility] 350.1.13.10 ity of [place] 4.2.7.2.686 Jefry as ANTHONY?BLEA [id number] Me dicethan [address] MEDICAL OFFICE [facility] 2022-03-28 2022-03-28 [facility] Jony Roy [facility] 1.2.840.114 [id number] Univers 15:00:00 15:28:06 Care Unknown, Attending HEALTH 350.1.13.10 ity of [place] 4.2.7.2.686 Jefry as ANTHONY?BLEA [id number] Me dical MERCEDES [address] MEDICAL OFFICE [facility] 2022-03-28 2022-03-28 Outpatient R RADIOLOGY [facility] [id number] Univers 13:53:16 15:09:00 ity of [facility] 2022-03-28 2022-03-28 [facility] Radiology [facility] 1.2.840.114 [id number] Univers 13:53:16 15:09:00 Encounter [place] 350.1.13.10 ity of [place] 4.2.7.2.[place] [id number] [facility] [address] 2022-03-28 2022-03-28 Orders Doctor UYEN 1.2.840.114 [id number] Univers 00:00:00 00:00:00 Only Unassigned, FLASH 350.1.13.[address] HOSPITAL 4.2.7.2.686 Jefry as [id number] [address] 2022-03-11 2022-03-11 Outpatient R RIVKA [facility] [id number] Univers 14:30:00 15:10:43 RAZ ity [facility] 2022-03-11 2022-03-11 Office [facility] 1.2.840.114 [id number] Univers 14:30:00 15:10:43 Visit [facility] 350.1.13.10 it y of [place] 4.2.7.2.686 Jefry as ANTHONY?BLEA [id number] Nd agustin CEEEY 044 [facility] OFFICE [facility] 2022-02-28 2022-02-28 Orders Doctor UYEN 1.2.840.114 [id number] Univers 00:00:00 00:00:00 Only Unassigned, FLASH 350.1.13.[address] HOSPITAL 4.2.7.2.686 Jefry as [id number] [address] 2022-02-25 2022-02-25 Outpatient R RILEY [facility] [id number] Univers 14:00:00 14:36:52 SENDIL ity [facility] 2022-02-25 2022-02-25 Office RileyNEW [facility] 1.2.840.114 [id number] Univers 14:00:00 14:36:52 Visit Katie LEACH 350.1.13.10 ity of [place] 4.2.7.2.686 [place] [facility] [id number] Nd agustin TEIXEIRA 059 [facility] 2022-02-14 2022-02-14 Urgent ShreyaTracy medrano [facility] 1.2.840 .114 [id number] Univers 09:20:00 09:40:00 Care Unknown, [facility] HEALTH 350.1.13.10 ity of [place] 4.2.7.2.686 Jefry as ANTHONY?BLEA [id number] Nd agustin [address] MEDICAL OFFICE [facility] 2022-02-14 2022-02-14 Outpatient R SHREYA [facility] [id number] Univers 09:20:00 09:20:00 TRACY itjose manuel o f [facility] 2022-02-13 2022-02-13 Telephone Team, [facility] UYEN 1.2.840.114 [id number] Univers 00:00:00 00:00:00 Health FLASH 350.1.13.10 it y of [facility] 4.2.7.2.686 [place] [id number] [address] 2022-02-11 2022-02-11 Telephone Rivka [facility] [id number] Univers 00:00:00 00:00:00 Raz HEALTH 350.1.13.10 [facility] 4.2.7.2.686 Jefry as ANTHONY?BLEA [id number] Nd agustin LONG 0[address] [facility] OFFICE [facility] 2022-02-08 2022-02-08 [facility], Ang - Db [facility] 1.2.840.1 [id number] [facility] 10:15:00 10:30:00 Visit Raz Tineo HEALTH 350.1.13.10 [facility] 4.2.7.2.686 Jefry as ANTHONY?BLEA [id number] Nd agustin LONG 353 [facility] OFFICE [facility] 2022-02-08 2022-02-08 Outpatient R RIVKA [facility] [id number] Univers 09:30:00 10:09:10 RAZ ity of [facility] 2022-02-08 2022-02-08 Office Rivka [facility] 1.2.840.114 [id number] Univers 09:30:00 10:09:10 Visit Raz Bookya 350.1.13.10 it y of [place] 4.2.7.2.686 Jefry as ANTHONY?BLEA [phone] Nd agustin CEE 044 [facility] OFFICE [facility] 2022-02-06 2022-02-06 Telephone Provider, [facility] 1.2.840.114 [id number] Univers 00:00:00 00:00:00 Ang Db HEALTH 350.1.13.10 it y [facility] 4.2.7.2.686 [place] ANTHONY?BLEA [phone] [address] MEDICAL OFFICE [facility] 2022-02-05 2022-02-05 Outpatient Bryan BAKER [facility] [id number] Univers 14:00:00 14:31:10 RISSA jose manuel [facility] 2022-02-05 2022-02-05 Urgent [facility] 1.2.840.114 [id number] Univers 14:00:00 14:31:10 Care [facility], [facility] HEALTH 350.1.13.10 [facility] 4.2.7.2.686 Jefry as ANTHONY?BLEA [id number] [address] OFFICE [facility] 2022-01-22 2022-01-22 Telephone Rivka [facility] 1.2.728.311 [id number] Univers 00:00:00 00:00:00 Raz HEALTH 350.1.13.10 [facility] 4.2.7.2.686 Jefry as ANTHONY?BLEA [id number] [address] OFFICE [facility] 2022-01-22 2022-01-22 Telephone Belkys Joshua 1.2.840.114 [id number] Univers 00:00:00 00:00:00 FLASH 350.1.13.10 it y of HOSPITAL 4.2.7.2.686 Jefry as [id number] [address] 2022-01-21 2022-01-21 Outpatient R SAMUEL [facility] [id number] Univers 16:40:00 17:20:29 RISSA villar [facility] 2022-01-21 2022-01-21 Urgent [facility] 1.2.840.114 [id number] Univers 16:40:00 17:20:29 Care Traci, Misael HEALTH 350.1.13.10 [facility] 4.2.7.2.686 Jefry as ANTHONY?BLEA [id number] [address] MEDICAL OFFICE [facility] 2022-01-21 2022-01-21 Orders Doctor UYEN 1.2.840.114 [id number] Univers 00:00:00 00:00:00 Only Unassigned, FLASH 350.1.13.[address] [facility] 4.2.7.2.686 Jefry as [phone] [address] 2022-01-17 2022-01-17 Outpatient R LISHA [facility] [id number] Univers 14:30:00 14:30:00 MATEO ity of [facility] 2022-01-16 2022-01-16 Refill [facility] 1.2.840.114 [id number] Univers 00:00:00 00:00:00 Raz HEALTH 350.1.13.10 it y of [place] 4.2.7.2.686 Jefry as ANTHONY?BLEA [id number] [address] 2022-01-10 2022-01-10 Telephone [facility]NEW [facility] 1.2.216.614 [id number] 0795 Univers 00:00:00 00:00:00 Katie LEACH 350.1.13.10 ity of [place].7.2.[place] [id number] Nd agustin [facility] 059 [facility] 2022-01-07 2022-01-07 Outpatient R RIVKA [facility] [id number] Univers 16:00:00 16:49:54 RAZ ity [facility] 2022-01-07 2022-01-07 Office [facility] 1.2.840.114 [id number] 20 Univers 16:00:00 16:49:54 Visit Raz HEALTH 350.1.13.10 it y of [place] 4.2.7.2.686 Jefry as ANTHONY?BLEA [id number] [address] OFFICE [facility] 2022-01-07 2022-01-07 Telephone [facility] 1.2.437.430 4069 [id number] Univers 00:00:00 00:00:00 Raz HEALTH 350.1.13.10 it y of [place] 4.2.7.2.686 Jefry as ANTHONY?BLEA [id number] [address] OFFICE [facility] 2021-12-27 2021-12-27 Abelardo ValenciaNEW [facility]EX[facility] 1.2.840.114 [id number] Univers 00:00:00 00:00:00 Wondiful A HEALTH 350.1.13.10 ity of [place] 4.2.7.2.686 Jefry as ANTHONY?BLEA [id number] [address] OFFICE [facility] 2021-12-03 2021-12-03 Outpatient R RIVKA [facility] [id number] Univers 00:00:00 00:00:00 RAZ ity of [facility] 2021-11-30 2021-11-30 Abelardo TineoNEW [facility] 1.2.840.114 [id number] Univers 00:00:00 00:00:00 Raz HEALTH 350.1.13.10 it y of [place] 4.2.7.2.686 Jefry as ANTHONY?BLEA [id number] [address] OFFICE [facility] 2021-11-30 2021-11-30 Telephone [facility] 1.2.919.149 2195 [id number] Univers 00:00:00 00:00:00 Raz HEALTH 350.1.13.10 it y of [place] 4.2.7.2.686 Jefry as ANTHONY?BLEA [id number] [address] OFFICE [facility] 2021-11-30 2021-11-30 Abelardo ValenciaNEW [facility]EX[facility] 1.2.840.114 [id number] Univers 00:00:00 00:00:00 Wondiful A HEALTH 350.1.13.10 ity of [place] 4.2.7.2.686 Jefry as ANTHONY?BLEA [phone] [address] OFFICE [facility] 2021-11-27 2021-11-27 Telephone Riv[facility]NEW [facility] 1.2.509.476 [id number] [id number] Univers 00:00:00 00:00:00 Raz HEALTH 350.1.13.10 it y of [place] 4.2.7.2.686 Jefry as ANTHONY?BLEA [id number] [address] OFFICE [facility] 2021-11-26 2021-11-26 Dock Grader Lab, Ang - Db [facility] 1.2.840.1 14 [id number] Univers 15:30:00 15:45:00 Visit Raz Tineo HEALTH 350.1.13.10 [facility] 4.2.7.2.686 Jefry as ANTHONY?BLEA [id number] [address] OFFICE [facility] 2021-11-26 2021-11-26 Outpatient [facility] [id number] Univers 14:30:00 15:28:20 RAZ ity [facility] 2021-11-26 2021-11-26 Office [facility] 1.2.840.114 [id number] Univers 14:30:00 15:28:20 Visit Raz HEALTH 350.1.13.10 it y of [place] 4.2.7.2.686 Jefry as ANTHONY?BLEA [id number] [address] OFFICE [facility] 2021-11-26 2021-11-26 Outpatient [facility] [id number] Univers 14:30:00 15:28:20 RAZ ity [facility] 2021-11-26 2021-11-26 Orders Doctor UYEN 1.2.840.114 [id number] Univers 00:00:00 00:00:00 Only Unassigned, FLASH 350.1.13.[address] [facility] 4.2.7.2.686 Jefry as [id number] [address] 2021-11-22 2021-11-22 Refjacob Valencia [facility] 1.2.840.114 [id number] Univers 00:00:00 00:00:00 Wondiful A HEALTH 350.1.13.10 [facility] 4.2.7.2.686 Jefry as ANTHONY?BLEA [phone] [address] OFFICE [facility] 2021-11-16 2021-11-16 Telephone [facility]NEW [facility] 1.2.449.832 [id number] [id number] Univers 00:00:00 00:00:00 Raz HEALTH 350.1.13.10 it y of [place] 4.2.7.2.686 Jefry as ANTHONY?BLEA [id number] [address] MEDICAL OFFICE [facility] 2021-11-13 2021-11-13 Orders Doctor UYEN 1.2.840.114 [id number] Univers 00:00:00 00:00:00 Only Unassigned, FLASH 350.1.13.[address] [facility] 4.2.7.2.686 Jefry as [id number] [address] 2021-11-09 2021-11-09 Telephone Provider, [facility] 1.2.840.114 [id number] Univers 00:00:00 00:00:00 Ang Db HEALTH 350.1.13.10 it y of [facility] [place] 4.2.7.2.686 [place] ANTHONY?BLEA [id number] [address] OFFICE [facility] 2021-11-05 2021-11-05 Abelardo Tineo [facility] 1.2.840.114 [id number] Univers 00:00:00 00:00:00 Raz HEALTH 350.1.13.10 it y of [place] 4.2.7.2.686 Jefry as ANTHONY?BLEA [id number] [address] OFFICE [facility] 2021-10-27 2021-10-27 Outpatient R JEAN-PAUL [facility] [id number] Univers 15:40:00 16:22:59 TARSHA ity of [facility] 2021-10-27 2021-10-27 Urgent Tarsha Jeong [facility] 1.2. 840.114 [id number] Univers 15:40:00 16:22:59 Care Tracy Cash HEALTH 350.1.13.10 ity of [place] 4.2.7.2.686 Jefry as ANTHONY?BLEA [id number] [address] MEDICAL OFFICE [facility] 2021-10-27 2021-10-27 Abelardo Valencia [facility] 1.2.840.114 [id number] 804 Univers 00:00:00 00:00:00 Wondiful A HEALTH 350.1.13.10 ity claudia [place] 4.2.7.2.686 Jefry as ANTHONY?BLEA [phone] [address] MEDICAL OFFICE [facility] 2021-10-25 2021-10-25 Outpatient Bryan LEONARDO [facility] [id number] Univers 14:45:00 14:45:00 [facility] 2021-10-24 2021-10-24 Abelardo Valencia [facility] 1.2.840.114 [id number] Univers 00:00:00 00:00:00 Wondiful A HEALTH 350.1.13.10 ity of [place] 4.2.7.2.686 Jefry as ANTHONY?BLEA [phone] [address] MEDICAL OFFICE [facility] 2021-10-12 2021-10-12 [facility] 1.2.840.1 [id number] Methodi 07:19:00 12:45:00 Encounter Rickey 19316.1.[address] 3.430.2.7 Hospit a .3.928786 l .8 2021-10-12 2021-10-12 Anesthesia Rohan Hughes 1.2.840 .1 [id number] Methodi 09:22:00 10:47:00 Event Marisela Jaquez 50612.1.[address] 3.430.2.7 Hospit a .3.368095 l .8 2021-10-12 2021-10-12 Surgery [facility] 1.2.840.1 [id number] 2100 745857 Methodi 09:00:00 10:45:[address] 3.430.2.7 Hospit a .3.587075 l .8 2021-10-12 2021-10-12 Travel 1.2.840.1 1.2.048.079 2154 [id number] Methodi 00:00:00 00:00:[address] 3.430.2.7 0.2.7.3.698 Ho spita .3.809305 084.8 l .8 2021-10-12 2021-10-12 [facility]21 02665 [address]951 [place] 00:00:00 00:00:[address] 2021-10-09 2021-10-09 Telephone RileyNEW [facility] 1.2.127.259 1201 7748 Univers 00:00:00 00:00:00 Sendil Margi LEACH 350.1.13.10 ity of [place] [phone] [facility]d [facility] 059 [facility] 2021-10-05 2021-10-05 Outpatient [facility] [id number] Univers 10:24:33 23:59:00 ROXY ity [facility] 2021-10-05 2021-10-05 [facility] 1.2.840.114 [id number] Univers 10:24:33 23:59:00 Encounter Roxy LEACH 350.1.13.10 it[place] of [place]2.[place].2.[place] [id number] [facility] [address] 2021-10-05 2021-10-05 Outpatient R RILEY [facility] [id number] Univers 11:00:00 11:00:00 SENDIL ity [facility] 2021-10-04 2021-10-04 Patient Doctor [facility] 1.2.840.114 [id number] Univers 00:00:00 00:00:00 Secure Msg Unassigned, HEALTH 350.1.13.[address] [facility] 4.2.7.2.686 Jefry as ANTHONY?BLEA [phone] Nd dical [facility] [address] MEDICAL OFFICE BUILDING 2021-10-04 2021-10-04 [facility] 1.2.733.358 [id number] 5362 Univers 00:00:00 00:00:00 Sendil Margi LEACH 350.1.13.10 it[place].2.[place] [phone] Nd dical NAL [address] [facility] 2021-10-03 2021-10-03 Outpatient R RILEY [facility] [id number] Univers 08:30:00 08:53:35 SENDIL ity [facility] 2021-10-03 2021-10-03 Office RileyNEW [facility] 1.2.840.114 [id number] Univers 08:30:00 08:53:35 Visit Sendeugene LEACH 350.1.13.10 ity [facility] [place].2.7.2.[place] [phone] [facility] NAL 059 [facility] 2021-10-03 2021-10-03 Outpatient [facility] [id number] Univers 08:30:00 08:53:35 SENDIL [facility] 2021-10-03 2021-10-03 Outpatient [facility] [id number] Univers 08:30:00 08:30:00 SENDIL [facility] 2021-10-03 2021-10-03 Telephone Riley [facility] 1.2.544.332 [id number] Univers 00:00:00 00:00:00 Sendeugene LEACH 350.1.13.10 ity [facility] [place]2.7.2.[place] [phone] [facility] NAL 059 [facility] 2021-10-01 2021-10-01 Dock Grader Lab, Ang - [facility] 1.2.840.1 14 [id number] Univers 13:15:00 13:30:00 Visit Raz Tineo 350.1.13.10 ity [facility] 4.2.7.2.686 Jefry as ANTHONY?BLEA [phone] Nd agustin [facility] 353 [facility] OFFICE [facility] 2021-10-01 2021-10-01 Outpatient R RIVKA [facility] [id number] Univers 13:15:00 13:15:00 RAZ itjose manuel [facility] 2021-10-01 2021-10-01 Office [facility] 1.2.840.114 [id number] Univers 11:00:00 11:36:45 Visit [facility] 350.1.13.10 it y of [place] 4.2.7.2.686 Jefry as ANTHONY?BLEA [phone] Nd dical KNEY [address] MEDICAL OFFICE BUILDING 2021-10-01 2021-10-01 Outpatient R RIVKA [facility] [id number] Univers 11:00:00 11:36:45 RAZ ity of [facility] 2021-10-01 2021-10-01 Telephone BLAKE Leonardo 1.2.840.114 [id number] Univers 00:00:00 00:00:00 Colin Bob Y HEALTH 350.1.13.[address] [facility] 4.2.7.2.[place] [id number] [facility] [address] [place] 2021-10-01 2021-10-01 Patient Bob [facility] 1.2.840.114 [id number] Univers 00:00:00 00:00:00 Secure Msg Colin Bob MULTISPEC 350.1.13.10 ity [facility] 4.2.7.2.[place] [id number] [address] [facility] 2021-09-27 2021-09-27 Outpatient R RENA ROLLINS [facility] 10 [id number] Univers 15:00:00 15:00:00 RENA ROLLINS i ty of [facility] 2021-09-26 2021-09-26 Telephone [facility] 1.2.494.809 [id number] Univers 00:00:00 00:00:00 Katie LEACH 350.1.13.10 ity of [place]2.7.2.686 [place] [facility] [phone] Nd dical NAL [address] [facility] 2021-09-25 2021-09-25 Emergency FloresNEW [facility] 1.2.278.924 [id number] Univers 18:39:00 23:54:00 Johnnie LEACH 350.1.13.10 i ty of [place] 4.2.7.2.[place] [id number] [facility] [address] 2021-09-25 2021-09-25 Outpatient [facility] [id number] Univers 15:04:57 18:38:00 RAZ villar [facility] 2021-09-25 2021-09-25 Outpatient R RIVKANEW [facility] ERT [id number] Univers 15:04:57 18:38:00 RAZMILTON villar [facility] 2021-09-25 2021-09-25 [facility] RivkaNEW [facility] 1.2.840.114 [id number] Univers 13:33:24 18:38:00 Encounter Raz ALLENLOBITO 350.1.13.10 ity [facility] 4.2.7.2.[place] [id number] [facility] [address] [place] 2021-09-25 2021-09-25 Nurse Nurse, [facility] 1.2.840.114 [id number] Univers 17:45:00 18:05:00 Visit [facility] 350.1.13.10 ity of [place] 4.2.7.2.686 Jefry as ANTHONY?BLEA [id number] [address] MEDICAL OFFICE BUILDING 2021-09-25 2021-09-25 Outpatient [facility] [id number] Univers 14:30:00 14:30:00 MATEO jian [facility] 2021-09-25 2021-09-25 Outpatient [facility] [id number] Univers 00:00:00 00:00:00 RAZ villar [facility] 2021-09-21 2021-09-21 Transition CHU Dhaliwal 1.2.840.114 [id number] Univers 00:00:00 00:00:00 of Care Krys DOWNEY 350.1.13.10 it y of [place]2.7.2.[place] [id number] [facility] [address] 2021-09-18 2021-09-20 Outpatient X PAT [facility] [id number] Univers 15:23:00 12:38:00 GUS jian [facility] 2021-09-18 2021-09-20 Emergency Vivienne Madera [facility] 1.2.840. 114 [id number] Univers 15:23:00 12:38:00 Gus Stewart 350.1.13.10 ity [place] 4[place]2.7.2.[place] [id number] [facility] [address] [place] 2021-09-20 2021-09-20 Telephone Riv[facility]NEW [facility] 1.2.520.173 [id number] [id number] Univers 00:00:00 00:00:00 Raz HEALTH 350.1.13.10 it y of [place] 4.2.7.2.686 Jefry as ANTHONY?BLEA [phone] Nd dicethan CEE [address] MEDICAL OFFICE [facility] 2021-09-18 2021-09-18 Outpatient R LISHA [facility] [id number] Univers 14:30:00 15:37:33 [facility] 2021-09-18 2021-09-18 Ancillary Marcie English [facility] 1.2.84 0.114 [id number] Univers 14:30:00 15:37:33 Visit Mateo Husain [place] 350.1.13.10 ity [facility] 4.2.7.2.686 [place] [facility] [id number] Nd agustin [facility] 179 [facility] 2021-09-18 2021-09-18 Out[facility] [id number] Univers 15:23:00 15:23:00 GUS villar [facility] 2021-09-11 2021-09-11 Telephone EamonNEW MEXICO [facility] 1.2.099.470 [id number] Univers 00:00:00 00:00:00 Barrington HEALTH 350.1.13.10 it y of [place] 4.2.7.2.686 Jefry as ANTHONY?BLEA [phone] [address] MEDICAL OFFICE [facility] 2021-09-06 2021-09-06 Outpatient R RIVKA [facility] [id number] Univers 14:30:00 14:30:00 RAZ dangy [facility] 2021-09-06 2021-09-06 Outpatient [facility] [id number] Univers 10:30:00 10:47:57 RAZ ity [facility] 2021-09-06 2021-09-06 Office Rivka [facility] 1.2.840.114 [id number] Univers 10:30:00 10:47:57 Visit Raz HEALTH 350.1.13.10 it y of [place] 4.2.7.2.686 Jefry as ANTHONY?BLEA [id number] [address] OFFICE [facility] 2021-09-03 2021-09-03 Outpatient R SAMUEL [facility] [id number] Univers 18:40:00 18:41:06 RISSA itjose manuel [facility] 2021-09-03 2021-09-03 [facility] SamuelNEW [facility] 1.2.840.114 [id number] 20 Univers 18:40:00 18:41:06 Care Rissa HEALTH 350.1.13.10 it y of [place] 4.2.7.2.686 Jefry as ANTHONY?BLEA [id number] [facility] [address] MEDICAL OFFICE [facility] 2021-08-27 2021-08-27 Refill Rivka [facility] 1.2.840.114 [id number] Univers 00:00:00 00:00:00 Raz HEALTH 350.1.13.10 it y of [place] 4.2.7.2.686 Jefry as ANTHONY?BLEA [id number] [address] MEDICAL OFFICE [facility] 2021-08-23 2021-08-23 Refill Doctor [facility] 1.2.840.114 [id number] Univers 00:00:00 00:00:00 Unassigned, HEALTH 350.1.13.[address] [place] 4.2.7.2.686 Jefry as ANTHONY?BLEA [id number] [address] MEDICAL OFFICE [facility] 2021-08-21 2021-08-21 Refill Annie [facility] 1.2.840.114 [id number] Univers 00:00:00 00:00:00 Wondiful A HEALTH 350.1.13.10 ity of [place] 4.2.7.2.686 Jefry as ANTHONY?BLEA [id number] [address] MEDICAL OFFICE BUILDING 2021-08-21 2021-08-21 Telephone [facility] 1.2.893.427 [id number] 0205 Univers 00:00:00 00:00:00 Raz HEALTH 350.1.13.10 it y of [place] 4.2.7.2.686 Jefry as ANTHONY?BLEA [id number] Nd agustin [place] [address]44 [facility] OFFICE [facility] 2021-08-15 2021-08-15 Refill Riv[facility]NEW [facility] 1.2.840.114 [id number] Univers 00:00:00 00:00:00 Raz HEALTH 350.1.13.10 it y of [place] 4.2.7.2.686 Jefry as ANTHONY?BLEA [id number] Nd agustin [address] [facility] 2021-08-15 2021-08-15 Telephone RollinsNEW [facility]EX[facility] 1.2.830.224 [id number] Univers 00:00:00 00:00:00 Shiwan HAYLEE 350.1.13.10 i ty [facility] 4.2.7.2.[place] [id number] Nd agustin NAL 085 [facility] 2021-08-14 2021-08-14 Telephone [facility]Critical [facility] 1.2.843.441 [id number] 0137 Univers 00:00:00 00:00:00 Raz HEALTH 350.1.13.10 it y of [place] 4.2.7.2.686 Jefry as ANTHONY?BLEA [phone] Nd agustin [address] [facility] 2021-08-06 2021-08-06 Dock Grader Lab, Ang - Wolf [facility] 1.2.840.1 14 [id number] Univers 15:00:00 15:15:00 Visit Kylie Tineoa HEALTH 350.1.13.10 ity of [place] 4.2.7.2.686 Jefry as ANTHONY?BLEA [id number] Nd dicethan [address] 353 [facility] OFFICE [facility] 2021-08-06 2021-08-06 Outpatient R RIVKA [facility] [id number] Univers 15:00:00 15:00:00 RAZ ity of [facility] 2021-08-06 2021-08-06 Outpatient [facility] [id number] Univers 15:00:00 15:00:00 RAZ villar [facility] 2021-08-06 2021-08-06 Office [facility] 1.2.840.114 [id number] Univers 14:30:00 14:39:14 Visit Raz HEALTH 350.1.13.10 it y of [place] 4.2.7.2.686 Jefry as ANTHONY?BLEA [id number] [address] OFFICE [facility] 2021-08-06 2021-08-06 Outpatient [facility] [id number] Univers 14:30:00 14:30:00 RAZ villar [facility] 2021-08-03 2021-08-03 Telephone [facility] 1.2.766.086 [id number] Univers 00:00:00 00:00:00 Raz HEALTH 350.1.13.10 it y of [place] 4.2.7.2.686 Jefry as ANTHONY?BLEA [id number] [address] OFFICE [facility] 2021-08-02 2021-08-02 Telephone [facility] 1.2.825.560 [id number] 1870 Univers 00:00:00 00:00:00 Sendil [facility] [place] 350.1.13.10 ity of [place].2.7.2.[place] [id number] [address] 2021-08-02 2021-08-02 Telephone [facility] 1.2.403.625 [id number] 1870 Univers 00:00:00 00:00:00 Sendil [facility] [place] 350.1.13.10 ity of [place].2.7.2.[place] [id number] [address] 2021-07-31 2021-07-31 Abelardo ValenciaNEW [facility]EXICO [facility] 1.2.840.114 [id number] Univers 00:00:00 00:00:00 Wondiful A HEALTH 350.1.13.10 ity of [place] 4.2.7.2.686 Jefry as ANTHONY?BLEA [phone] Nd agustin LONG [address] [place] [address] MEDICAL OFFICE BUILDING 2021-07-26 2021-07-26 [facility] 1.2.840.114 [id number] Univers 08:11:16 23:59:00 Encounter Katie LEACH 350.1.13.10 ity of [place] 4.2.7.2.686 [place] [id number] [facility] [address] 2021-07-26 2021-07-26 Office [facility] 1.2.840.114 [id number] Univers 14:30:00 14:58:46 Visit Colin ALVARADOPEC 350.1.13.10 [place] of [place] 4.2.7.2.686 [facility] [place] [phone] [address] [facility] 2021-07-26 2021-07-26 [facility] [id number] Univers 14:30:00 14:58:46 [facility] 2021-07-26 2021-07-26 [facility] 1.2.840.114 [id number] Univers 14:30:00 14:45:00 Visit Colin DEAL 350.1.13.10 [place]y of [place] 4.2.7.2.686 [facility] [phone] [address] [facility] 2021-07-26 2021-07-26 Outpatient Bryan LEONARDO [facility] [id number] Univers 14:30:00 14:30:00 COLIN villar [facility] 2021-07-26 2021-07-26 Outpatient Bryan LEONARDO [facility] [id number] Univers 14:30:00 14:30:00 COLIN villar [facility] 2021-07-26 2021-07-26 Outpatient rByan LIN [facility] [id number] Univers 11:00:00 11:00:00 KATIE villar [facility] 2021-07-26 2021-07-26 [facility] 1.2.840.114 [id number] Univers 08:10:34 08:10:34 Encounter Katie LEACH 350.1.13.10 ity of [place] 4.2.7.2.686 [facility] [phone] [facility] [address] 2021-07-26 2021-07-26 [facility] 1.2.840.114 [id number] Univers 08:09:52 08:09:52 Encounter Sendeugene LEACH 350.1.13.10 [facility] 4.2.7.2.686 [facility] [id number] [facility] [address] 2021-07-26 2021-07-26 [facility] [id number] Univers 08:09:07 08:09:07 SENDIL ity [facility] 2021-07-26 2021-07-26 [facility] 1.2.840.114 [id number] Univers 08:09:07 08:09:07 Encounter Katie LEACH 350.1.13.10 ity of [place] 4.2.7.2.686 [facility] [phone] [facility] [address] 2021-07-26 2021-07-26 [facility] [id number] Univers 00:00:00 00:00:00 SENDIL ity [facility] 2021-07-26 2021-07-26 [facility] [id number] Univers 00:00:00 00:00:00 SENDIL ity [facility] 2021-07-26 2021-07-26 Orders Doctor QIU 1.2.840.114 [id number] Univers 00:00:00 00:00:00 Only Unassigned, FLASH 350.1.13.[address] [facility] 4.2.7.2.686 Jefry as [phone] [facility] [address] 2021-07-26 2021-07-26 Orders Doctor QIU 1.2.840.114 [id number] Univers 00:00:00 00:00:00 Only Unassigned, FLASH 350.1.13.[address] [facility] 4.2.7.2.686 Jefry as [phone] [address] 2021-07-24 2021-07-24 Refill [facility] 1.2.840.114 [id number] Univers 00:00:00 00:00:00 Wondiful A HEALTH 350.1.13.10 ity of [place] 4.2.7.2.686 Jefry as PROFESS[facility] [phone] [address] OFFICE [facility] 2021-07-13 2021-07-13 Refill [facility] 1.2.840.114 [id number] Univers 00:00:00 00:00:00 Wondiful A HEALTH 350.1.13.10 ity of [place] 4.2.7.2.686 Jefry as ANTHONY?BLEA [phone] [id number] [address] OFFICE [facility] 2021-07-13 2021-07-13 Orders Doctor UYEN 1.2.840.114 [id number] Univers 00:00:00 00:00:00 Only Unassigned, FLASH 350.1.13.[address] [facility] 4.2.7.2.686 Jefry as [phone] [address] 2021-07-09 2021-07-09 Outpatient R ANNIE [facility] [id number] Univers 13:30:00 13:30:00 WONDIFUL ity o f [facility] 2021-07-06 2021-07-06 Refjacob ValenciaNEW [facility] 1.2.840.114 [id number] Univers 00:00:00 00:00:00 Wondiful A HEALTH 350.1.13.10 ity of [place] 4.2.7.2.686 Jefry as PROFESSIO [phone] [address] ONE 2021-07-03 2021-07-03 Dock Grader Lab, Ang - Db [facility] 1.2.840.1 14 [id number] Univers 15:30:00 15:45:00 Visit Rubi Valencia A HEALTH 350.1.13.1 0 ity of [place] 4.2.7.2.686 Jefyr as ANTHONY?BLEA [id number] [address] OFFICE BUILDING 2021-07-03 2021-07-03 Outpatient R ANNIE [facility] [id number] Univers 15:30:00 15:30:00 WONDIFUL ity o f [facility] 2021-07-03 2021-07-03 Office [place] 1.2.840.114 [id number] Univers 15:00:00 15:27:47 Visit Wondiful A HEALTH 350.1.13.10 [facility] 4.2.7.2.686 Jefry as ANTHONY?BLEA [phone] Nd dical KNEY 044 [facility] OFFICE [facility] 2021-07-03 2021-07-03 Outpatient R ANNIE [facility] [id number] Univers 15:00:00 15:27:47 WONDIFUL ity o f [facility] 2021-06-21 2021-06-21 Outpatient R FEDE [facility] [id number] Univers 14:30:00 15:13:56 BRE ity of [facility] 2021-06-21 2021-06-21 Office [facility] 1.2.483.778 [id number] Univers 14:30:00 15:13:56 Visit Bre SPECIALTY 350.1.13.10 ity of [facility] 4.2.7.2.[place] [facility] [facility] [phone] Nd agustin [facility] 2021-06-21 2021-06-21 Outpatient R FEDE [facility] [id number] Univers 14:30:00 15:13:56 BRE ity of [facility] 2021-06-14 2021-06-14 Outpatient R RENA ROLLINS [facility] 10 [id number] Univers 14:00:00 14:39:55 RENA ROLLINS i ty of [facility] 2021-06-14 2021-06-14 Office yAo [facility] 1.2.840.114 [id number] Univers 14:00:00 14:39:55 Visit Rena LEACH 350.1.13.10 i ty of [place] 4.2.7.2.[place] [phone] Nd dical NAL 085 [facility] 2021-06-14 2021-06-14 Outpatient R AYO RENA [facility] 10 [id number] Univers 14:00:00 14:39:55 RENA ROLLINS i ty of [facility] 2021-06-14 2021-06-14 Outpatient R AYO RENA [facility] 10 [id number] Univers 14:00:00 14:00:00 RENA ROLLINS i ty [facility] 2021-06-11 2021-06-11 Out[facility] [id number] Univers 15:00:00 15:00:00 MATEO ity [facility] 2021-06-08 2021-06-08 Telephone [facility]NEW [facility] 1.2.100.155 [id number] Univers 00:00:00 00:00:00 [facility] 350.1.13.10 it[place] of [place]2.7.2.[place] [phone] Nd agustin NAL 059 [facility] 2021-06-06 2021-06-06 Refill [facility]NEW [facility] 1.2.840.114 [id number] Univers 00:00:00 00:00:00 Wondiful A HEALTH 350.1.13.10 ity of [place] 4.2.7.2.686 Jefry as PROFESSIO [phone] Nd texal PUNEET 044 [facility] ONE 2021-05-31 2021-05-31 Felix ValenciaNEW MEXICO [facility] 1.2.840.114 [id number] Univers 00:00:00 00:00:00 Management Wondiful A HEALTH 350.1.13.10 ity of [place] 4.2.7.2.686 Jefry as ANTHONY?BLEA [id number] Nd dicethan KNEY 044 [facility] OFFICE [facility] 2021-05-28 2021-05-28 Outpatient [facility] [id number] Univers 14:40:00 23:59:00 WONDIFUL ity o f [facility] 2021-05-28 2021-05-28 [facility] AnnieNEW [facility] 1.2.414.524 [id number] Univers 14:40:00 23:59:00 Encounter Wondiful A HEALTH 350.1.13.10 ity of [place] 4.2.7.2.686 Jefry as ANTHONY?BLEA [phone] Nd agustin LONG 8[address] [facility] 2021-05-28 2021-05-28 Dock Grader Lab, Ang - Db [facility] 1.2.840.1 14 [id number] Univers 15:00:00 15:15:00 Visit Rubi Valencia A HEALTH 350.1.13.1 0 ity of [place] 4.2.7.2.686 Jefry as ANTHONY?BLEA [id number] Nd agustin LONG 353 [facility] 2021-05-28 2021-05-28 Office [facility] 1.2.840.114 [id number] Univers 14:00:00 14:58:29 Visit Wondiful A HEALTH 350.1.13.10 ity of [place] 4.2.7.2.686 Jefry as ANTHONY?BLEA [id number] Nd agustin LONG 044 [facility] 2021-05-28 2021-05-28 Outpatient R ANNIE [facility] [id number] Univers 14:40:00 14:40:00 WONDIFUL ity o f [facility] 2021-05-22 2021-05-22 Telephone A[facility]NEW [facility] 1.2.262.383 [id number] Univers 00:00:00 00:00:00 Shiwan [place] 350.1.13.10 i ty of [place] 4.2.7.2.686 [place] PROF[place] [phone] Nd agustin NAL 085 [facility] 2021-05-18 2021-05-18 Refill AnnieNEW [facility] 1.2.840.114 [id number] Univers 00:00:00 00:00:00 Wondiful A HEALTH 350.1.13.10 ity of [place] 4.2.7.2.686 Jefry as ANTHONY?BLEA [phone] Nd agustin LONG 044 [facility] 2021-05-16 2021-05-16 Office Connie [facility] 1.2.578.492 [id number] Univers 15:00:00 15:20:00 Visit Kailey LEACH 350.1.13.10 ity of [place] 4.2.7.2.[place] [phone] Nd agustin PUNEET 085 [facility] 2021-05-16 2021-05-16 Outpatient R TOMASZJULY [facility] [id number] Univers 15:00:00 15:00:00 TOMASZJULY [facility] 2021-05-16 2021-05-16 Outpatient R PEARLARNOLD [facility] [id number] Univers 15:00:00 15:00:00 COUNT INCLUDES THE [facility] 2021-05-04 2021-05-04 Dock Grader Therapist, [facility] Respiratory [facility] 1.2.840.114 [id number] Univers 12:30:00 14:00:00 Visit Floyd Man 350.1.13. 10 ity [facility] 4.2.7.2.686 [place] [id number] [place] 164983 [place] 2021-05-04 2021-05-04 Outpatient R MICKEY [facility] [id number] Univers 12:30:00 12:30:00 FLOYD [facility] [place] 2021-05-04 2021-05-04 Orders Ayo, UNIVERSIT 1.2.276.088 [id number] Univers 00:00:00 00:00:00 Only Shiwan Y HEALTH 350.1.13.[address] [facility] 4.2.7.2.686 [place] [id number] [place] 164984 [place] 2021-05-03 2021-05-03 Telephone Annie [facility] 1.2.840.114 [id number] Univers 00:00:00 00:00:00 Wondiful A HEALTH 350.1.13.10 ity of [place] 4.2.7.2.686 Jefry as ANTHONY?BLEA [phone] [facility] EY [address] [place] MEDICAL OFFICE BUILDING 2021-05-02 2021-05-02 Case Annie [facility] 1.2.840.114 [id number] Univers 00:00:00 00:00:00 Management Wondiful A HEALTH 350.1.13.10 ity of [place] 4.2.7.2.686 Jefry as ANTHONY?BLEA [id number] Nd dical KNEY 044 [place] MEDICAL OFFICE BUILDING 2021-05-01 2021-05-01 Telephone UYEN Gallo 1.2.354.932 [id number] Univers 00:00:00 00:00:00 Bárbara VIDALES 350.1.13.10 it y of [facility] 4.2.7.2.686 Jefry as [phone] [address] 2021-05-01 2021-05-01 Telephone LinNEW [facility] 1.2.802.049 [id number] Univers 00:00:00 00:00:00 Katie [place] 350.1.13.10 ity of [place].2.7.2.686 [place] [phone] Nd dical NAL 059 [facility] 2021-04-30 2021-04-30 Laboratory Only, Ang Db Test [facility] 1.2.8 40.114 [id number] Univers 16:15:00 16:30:00 Only Jil, Tesfaye HEALTH 350.1.13.10 ity of [place] 4.2.7.2.686 Jefry as ANTHONY?BLEA [phone] Nd dical MERCEDES [address] [place] MEDICAL OFFICE [facility] 2021-04-30 2021-04-30 Outpatient R JIL [facility] [id number] Univers 16:15:00 16:15:00 OMAYEMI ity of [facility] 2021-04-23 2021-04-23 Dock Grader Lab, Ang - Db [facility] 1.2.840.1 14 [id number] Univers 10:00:00 10:15:00 Visit Rubi Valencia A HEALTH 350.1.13.1 0 ity of [place] 4.2.7.2.686 Jefry as ANTHONY?BLEA [phone] Nd dical MERCEDES [address] [place] MEDICAL OFFICE BUILDING 2021-04-23 2021-04-23 Outpatient R ANNIE [facility] [id number] Univers 10:00:00 10:00:00 WONDIFUL ity o f [facility] 2021-04-19 2021-04-19 Hospital [facility]NEW [facility] 1.2.840.114 [id number] Univers 14:23:58 23:59:00 Encounter Katie Kiser HAYLE[place] 350.1.13.10 ity [facility] 4.2.7.2.686 [place] [phone] Nd dical NAL 843 [facility] 2021-04-19 2021-04-19 Urgent Johanabhaveshkim [facility] 1.2.840.114 [id number] Univers 16:40:00 17:00:00 Care Rania HEALTH 350.1.13.10 it y of [place] 4.2.7.2.686 Jefry as ANTHONY?BLEA [phone] Nd dical KNEY 370 [facility] OFFICE BUILDING 2021-04-19 2021-04-19 Outpatient R RENA ROLLINS [facility] 10 [id number] Univers 13:30:00 14:23:11 RENA ROLLINS i ty of [facility] 2021-04-19 2021-04-19 Office [facility] 1.2.840.114 [id number] Univers 13:30:00 14:23:11 Visit Rena LEACH 350.1.13.10 i ty of [place] 4.2.7.2.686 [place] [id number] Nd dical NAL 085 [facility] 2021-04-19 2021-04-19 Outpatient R RENA ROLLINS [facility] 10 [id number] Univers 13:30:00 14:23:11 RENA ROLLINS i ty of [facility] 2021-04-13 2021-04-13 Refill AnnieNEW [facility] 1.2.840.114 [id number] Univers 00:00:00 00:00:00 Wondiful A HEALTH 350.1.13.10 ity of [place] 4.2.7.2.686 Jefry as PROFESSIO [phone] Nd dical NAL 044 [place] OFFICE BUILDING ONE 2021-04-12 2021-04-12 Laboratory Only, Ang Db Test [facility] 1.2.8 40.114 [id number] Univers 17:30:00 17:45:00 Only Asaf Esposito HEALTH 350.1.13.10 [facility] 4.2.7.2.686 Jefry as ANTHONY?BLEA [id number] Nd agustin LONG [address] [place] MEDICAL OFFICE BUILDING 2021-04-12 2021-04-12 Outpatient R VAIBHAV [facility] [id number] Univers 17:30:00 17:30:00 ASAF ity of [facility] 2021-04-10 2021-04-10 Refill [facility]NEW [facility] 1.2.840.114 [id number] Univers 00:00:00 00:00:00 Wondiful A HEALTH 350.1.13.10 ity of [place] 4.2.7.2.686 Jefry as PROFESSIO [id number] [facility] [address] [place] OFFICE [facility] ONE 2021-04-05 2021-04-05 Outpatient R RENA ROLLINS [facility] 10 [id number] Univers 11:00:00 11:00:00 RENA ROLLINS i ty of [facility] 2021-04-03 2021-04-03 [facility] 1.2.840.114 [id number] Univers 00:00:00 00:00:00 Management Wondiful A HEALTH 350.1.13.10 ity of [place] 4.2.7.2.686 Jefry as ANTHONY?BLEA [phone] Nd agustin CEE 044 [place] MEDICAL OFFICE BUILDING 2021-04-03 2021-04-03 Telephone [facility]NEW [facility] 1.2.368.565 [id number] Univers 00:00:00 00:00:00 Rena [place] 350.1.13.10 i ty [facility] 4.2.7.2.[place] [phone] Nd dicethan NAL [address] [place] [facility] 2021-04-02 2021-04-02 Outpatient [facility] [id number] Univers 17:05:00 23:59:00 WONDIFUL ity o f [facility] 2021-04-02 2021-04-02 [facility] 1.2.792.508 [id number] Univers 17:05:00 23:59:00 Encounter Wondiful A HEALTH 350.1.13.10 ity of [place] 4.2.7.2.686 Jefry as ANTHONY?BLEA [phone] Me agustin LONG 809 [facility] OFFICE [facility] 2021-04-02 2021-04-02 Office Annie [facility] 1.2.840.114 [id number] Univers 16:15:00 17:18:41 Visit Rubi A HEALTH 350.1.13.10 ity of [place] 4.2.7.2.686 Jefry as ANTHONY?BLEA [phone] Nd agustin LONG 044 [facility] OFFICE [facility] 2021-04-02 2021-04-02 Outpatient [facility] [id number] Univers 16:15:00 17:18:41 WONDIFUL ity o f [facility] 2021-03-26 2021-03-26 Outpatient R ANNIE [facility] [id number] Univers 16:10:00 16:10:00 WONDIFUL ity o f [facility] 2021-03-26 2021-03-26 Imm/Inj Vaccine, Ang Db C[facility] 1. 2.840.114 [id number] Univers 15:16:44 15:26:44 Visit Rubi Valencia HEALTH 350.1.13.1 0 ity [facility] 4.2.7.2.686 Jefry as ANTHONY?BLEA [phone] Nd agustin LONG 044 [facility] OFFICE [facility] 2021-03-22 2021-03-22 Telephone Ayo [facility] 1.2.184.948 [id number] Univers 00:00:00 00:00:00 Bartn HAYLEE 350.1.13.10 i ty of [place] 4.2.7.2.686 [place] [phone] Nd dical NAL 085 [facility] 2021-03-20 2021-03-20 Patient Riley [facility] 1.2.840.114 [id number] Univers 00:00:00 00:00:00 Secure Msg Katie Kiser ALEJANDROTON 350.1.13.10 ity of [place] 4.2.7.2.686 [place] [phone] Nd dical NAL 059 [facility] 2021-03-01 2021-03-01 Refill Annie [facility] 1.2.840.114 [id number] Univers 00:00:00 00:00:00 Wondiful A [facility] 350.1.13.10 ity of [place] 4.2.7.2.686 Jefry as PROFESSIO [id number] [facility] [address] [place] OFFICE [facility] ONE 2021-02-22 2021-02-22 Outpatient R RILEY [facility] [id number] Univers 15:00:00 15:12:20 SENDIL ity of [facility] 2021-02-22 2021-02-22 Office [facility]NEW [facility] 1.2.840.114 [id number] Univers 14:38:36 15:12:20 Visit Katie SamJesus LEACH 350.1.13.10 ity [facility] 4.2.7.2.[place] [id number] [facility] 059 [facility] 2021-02-22 2021-02-22 Office Ayo [facility] 1.2.840.114 [id number] Univers 13:51:57 14:21:57 Visit Rena LEACH 350.1.13.10 i ty of [facility] 4.2.7.2.[place] [phone] [facility] 085 [facility] 2021-02-22 2021-02-22 Outpatient R RENA ROLLINS [facility] 10 [id number] Univers 14:00:00 14:00:00 RENA ROLLINS i ty of [facility] 2021-02-14 2021-02-14 Office Connie [facility] 1.2.913.311 [id number] Univers 16:11:31 16:31:31 Visit Kailey LEACH 350.1.13.10 ity [facility] 4.2.7.2.[place] [phone] Nd dicnm NAL 085 [facility] 2021-02-14 2021-02-14 Outpatient R KAILEY BLAND [facility] [id number] Univers 16:00:00 16:00:00 KAILEY BLAND ity of [facility] 2021-02-14 2021-02-14 Refgrand [facility] 1.2.840.114 [id number] Univers 00:00:00 00:00:00 Wondiful A HEALTH 350.1.13.10 ity of [place] 4.2.7.2.686 Jefry as ANTHONY?BLEA [id number] [address] OFFICE [facility] 2021-02-13 2021-02-13 Refgrand [facility] 1.2.840.114 [id number] Univers 00:00:00 00:00:00 Wondiful A HEALTH 350.1.13.10 ity of [place] 4.2.7.2.686 Jefry as ANTHONY?BLEA [id number] [address] 2021-02-13 2021-02-13 Telephone [facility] 1.2.840.114 [id number] Univers 00:00:00 00:00:00 Wondiful A HEALTH 350.1.13.10 ity of [place] 4.2.7.2.686 Jefry as ANTHONY?BLEA [id number] [address] 2021-02-12 2021-02-12 Telephone [facility] 1.2.840.114 [id number] Univers 00:00:00 00:00:00 Wondiful A HEALTH 350.1.13.10 ity of [place] 4.2.7.2.686 Jefry as ANTHONY?BLEA [id number] [address] OFFICE [facility] 2021-02-12 2021-02-12 Orders Doctor UYEN 1.2.840.114 [id number] Univers 00:00:00 00:00:00 Only Unassigned, FLASH 350.1.13.[address] [facility] 4.2.7.2.686 Jefry as [id number] [address] 2021-02-07 2021-02-07 Outpatient R SERINA [facility] [id number] Univers 14:00:00 14:00:00 EUGENIE ity [facility] 2021-01-172021-01-17 Case [facility] 1.2.840.114 [id number] Univers 00:00:00 00:00:00 Management Wondiful A Health 350.1.13.10 ity of [place] 4.2.7.2.686 Jefry as Anthony?Blea [phone] Nd dicethan long 044 [facility] Office [facility] 2021-01-12 2021-01-12 Dock Grader Lab, Ang - Db [facility] 1.2.840.1 14 [id number] Univers 16:41:01 16:50:21 Visit Rubi [facility] 350.1.13.1 0 ity of [place] 4.2.7.2.686 Jefry as Anthony?Blea [phone] Nd dicethan ceeey 353 [facility] Office [facility] 2021-01-12 2021-01-12 Office [facility] 1.2.840.114 [id number] Univers 15:47:11 16:41:07 Visit Woninezful A Health 350.1.13.10 ity of [place] 4.2.7.2.686 Ejfry as Anthony?Blea [phone] Nd agustin long 044 [facility] Office [facility] 2021-01-12 2021-01-12 Outpatient R ANNIE [facility] [id number] Univers 15:45:00 15:45:00 WONDIFUL ity o f [facility] 2021-01-12 2021-01-12 Telephone [facility] 1.2.840.114 [id number] Univers 00:00:00 00:00:00 Wondiful A Health 350.1.13.10 ity of [place] 4.2.7.2.686 Jefry as Anthony?Blea [phone] Nd dicethan long 044 [facility] Office [facility] 2021-01-04 2021-01-04 Office [facility] 1.2.840.114 [id number] Univers 14:22:18 15:13:46 Visit Bartn [place] 350.1.13.10 i ty of [place] 4.2.7.2.[place] Profess[place] [id number] Nd dical nal 085 [facility] 2021-01-04 2021-01-04 Office [facility] 1.2.840.114 [id number] Univers 10:55:41 11:54:08 Visit Daviinezjefferson A [facility] 350.1.13.10 ity of [place] 4.2.7.2.686 Jefry as Anthony?Blea [phone] Nd agustin [address] Medical Office [facility] 2021-01-04 2021-01-04 Outpatient [facility] [id number] Univers 11:00:00 11:00:00 WONDIFUL ity o f [facility] 2021-01-01 2021-01-01 Hospital [facility]NEW [facility] 1.2.840.114 [id number] Univers 12:28:10 23:59:00 Encounter Herb Haylee 350.1.13.10 ity of [place] 4.2.7.2.686 [place] [id number] [facility] [address] [place] 2021-01-01 2021-01-01 Outpatient [facility] [id number] Univers 00:00:00 00:00:00 HERB jian [facility] 2020-12-27 2020-12-27 Outpatient [facility] [id number] Univers 09:00:00 09:00:00 HERB villar [facility] 2020-12-26 2020-12-26 Outpatient [facility] [id number] Univers 11:00:00 11:00:00 WONDIFUL ity o f [facility] 2020-12-22 2020-12-23 Emergency [facility] 1.2.840.114 [id number] Univers 17:37:00 00:24:00 Charles Leach 350.1.13.10 ity of [place] 4.2.7.2.686 [place] [id number] [facility] [address] [place] 2020-12-22 2020-12-22 Letter UYEN [place] 1.2.840.114 [id number] Univers 00:00:00 00:00:00 (Out) Leticia VIDALES 350.1.13.10 it y of [facility] 4.2.7.2.686 Jefry as [phone] [facility] [address] [place] 2020-12-22 2020-12-22 Orders Doctor UYEN 1.2.840.114 [id number] Univers 00:00:00 00:00:00 Only Unassigned, FLASH 350.1.13.[address] [facility] 4.2.7.2.686 Jefry as [phone] [address] 2020-12-21 2020-12-21 Laboratory Only, Ang Db Test [facility] 1.2.8 40.114 [id number] Univers 11:05:53 11:15:53 Only Green, Asaf Health 350.1.13.10 ity of [place] 4.2.7.2.686 Jefry as Anthony?Blea [id number] [address] Medical Office Building 2020-12-21 2020-12-21 Outpatient R [facility] [id number] Univers 11:00:00 11:00:00 ity of [facility] 2020-12-19 2020-12-19 Nurse Therapy, Adc Covid Infusion [facility] 1.2.840.114 [id number] Univers 15:00:21 16:00:21 Visit Pal Cortes 350.1.13.10 [place]y [place]7.2.[place] [phone] [place] [id number] [place] 2020-12-19 2020-12-19 Outpatient R [facility] [id number] Univers 15:00:00 15:00:00 ity of [facility] 2020-12-19 2020-12-19 Orders Doctor QIU 1.2.840.114 [id number] Univers 00:00:00 00:00:00 Only Unassigned, FLASH [id number] [facility] 4.2.7.2.686 Jefry as [phone] [address] 2020-12-15 2020-12-15 Abelardo Valencia [facility] 1.2.840.114 [id number] Univers 00:00:00 00:00:00 Wondiful [facility] [id number] ity of [place] 4.2.7.2.686 Jefry as Anthony?Blea [phone] Nd agustin c[address] Medical Office [facility] 2020-12-15 2020-12-15 [facility] 1.2.840.114 [id number] Univers 00:00:00 00:00:00 [facility] [id number] ity of [place] 4.2.7.2.686 Jefry as Anthony?Blea [phone] [address] Office [facility] 2020-12-15 2020-12-15 [facility] 1.2.840.114 [id number] Univers 00:00:00 00:00:00 W[facility] [id number] ity of [place] 4.2.7.2.686 Jefry as Anthony?Blea [phone] [address] Office [facility] 2020-12-14 2020-12-14 [facility] 1.2.840.114 [id number] Univers 00:00:00 00:00:00 Secure Msg [facility] [id number] ity of [place] 4.2.7.2.686 Jefry as Anthony?Blea [phone] [address] Office [facility] 2020-12-13 2020-12-13 Telephone Annie [facility] 1.2.840.114 [id number] Univers 00:00:00 00:00:00 W[facility] 350.1.13.10 ity of [place] 4.2.7.2.686 Jefry as Anthony?Blea [phone] [address] Office [facility] 2020-12-12 2020-12-12 Letter UYEN Lino 1.2.840.114 [id number] Univers 00:00:00 00:00:00 (Out) Mark VIDALES 350.1.13.10 i ty of HOSPITAL 4.2.7.2.686 Jefry as [phone] [address] 2020-12-11 2020-12-11 Laboratory Only, Ang Db Test [facility] 1.2.8 40.114 [id number] Univers 14:46:30 14:56:30 Only Rissa [facility] 350.1.13.10 ity of [place] 4.2.7.2.686 Jefry as Anthony?Blea [phone] Nd agustin long [address] [place] [facility] 2020-12-11 2020-12-11 Outpatient R SAMUEL [facility] [id number] Univers 14:45:00 14:45:00 RISSA ity of [facility] 2020-12-08 2020-12-08 Emergency [facility] 1.2.952.104 [id number] Univers 18:59:00 22:56:00 Yonathan [place] 350.1.13.10 i ty of [place] 4.2.7.2.686 [place] [facility] [phone] [place] [id number] [place] 2020-12-08 2020-12-08 Telephone [facility] 1.2.840.114 [id number] [facility] 00:00:00 00:00:00 Wondiful A Health 350.1.13.10 ity of [place] 4.2.7.2.686 Jefry as Anthony?Blea [phone] Nd agustin long 044 [place] Medical Office [facility] 2020-11-28 2020-11-28 Outpatient R ANNIE [facility] [id number] Univers 16:15:00 16:15:00 WONDIFUL ity o f [facility] 2020-11-17 2020-11-17 Telephone [facility] 1.2.840.114 [id number] Univers 00:00:00 00:00:00 Wondiful A Health 350.1.13.10 ity of [place] 4.2.7.2.686 Jefry as Professio [phone] Nd dicnm nal 044 [place] Office [facility] One 2020-11-16 2020-11-16 Laboratory Lab, Adc Fam Pob I [facility] 1.2. 840.114 [id number] Univers 17:08:41 17:28:41 Only VaibhavLauray Health 350.1.13.10 ity of [place] 4.2.7.2.686 Jefry as Professio [phone] Nd dical nal 044 [place] Office [facility] One 2020-11-162020-11-16 Outpatient R VAIBHAV [facility] [id number] Univers 17:00:00 17:00:00 ASAF villar [facility] 2020-11-01 2020-11-01 Office [facility] 1.2.840.114 [id number] Univers 13:42:49 14:32:22 Visit Eugenie ALVARADOPEC 350.1.13.10 ity of [place] IALTY 4.2.7.2.686 [place] [facility] [phone] [address] [facility] 2020-11-01 2020-11-01 Outpatient R SERINA [facility] [id number] Univers 13:40:00 13:40:00 EUGENIE villar [facility] 2020-10-25 2020-10-25 Case [facility] 1.2.840.114 [id number] Univers 00:00:00 00:00:00 Management Wondiful A Health 350.1.13.10 ity of [place] 4.2.7.2.686 [place]efry as Professio [phone] [address] Office [facility] One 2020-10-20 2020-10-20 Telephone Annie [facility] 1.2.840.114 [id number] Univers 00:00:00 00:00:00 Wondiful A Health 350.1.13.10 ity of [place] 4.2.7.2.686 Jefry as Professio [phone] [address] One 2020-10-19 2020-10-19 Dock Grader Lab, Adc Fam Pob I [facility] 1.2. 840.114 [id number] Univers 14:41:14 14:53:42 Visit Davi Valencialei A Health 350.1.13.1 0 ity of [place] 4.2.7.2.686 [place] as Professio [phone] [address] One 2020-10-19 2020-10-19 Office Annie [facility] 1.2.840.114 [id number] Univers 14:03:53 14:40:20 Visit Wondiful A Health 350.1.13.10 ity of [place] 4.2.7.2.686 Jefry as Professio [phone] Nd dicnm nal 044 [facility] One 2020-10-19 2020-10-19 Outpatient R ANNIE [facility] [id number] Univers 14:00:00 14:00:00 WONDIFUL ity o f [facility] 2020-10-13 2020-10-13 [facility] [id number] Univers 00:00:00 00:00:00 ROXY ity [facility] 2020-10-12 2020-10-12 [facility] 1.2.840.114 [id number] Univers 13:00:00 23:59:00 Encounter Roxy May [place] 350.1.13.10 ity of [place] 4.2.7.2.686 [place] [phone] [facility] 801 [place] 2020-10-12 2020-10-12 [facility] [id number] Univers 00:00:00 00:00:00 ROXY ity [facility] 2020-10-12 2020-10-12 Refjacob ValenciaNEW [facility] 1.2.840.114 [id number] Univers 00:00:00 00:00:00 Wondiful A Health 350.1.13.10 ity of [place] 4.2.7.2.686 Jefry as Professio [phone] [address] Office [facility] One 2020-10-09 2020-10-09 Orders Doctor UYEN 1.2.840.114 [id number] Univers 00:00:00 00:00:00 Only Unassigned, FLASH 350.1.13.[address] [facility] 4.2.7.2.686 Jefry as [phone] [facility] [address] 2020-09-14 2020-09-14 Documentat Gregory Pollock 1.2.840.1 [id number] Methodi 00:00:00 00:00:[address] 3.430.2.7 Hospit a .3.433928 l .8 2020-09-05 2020-09-05 Pre Visit Annie [facility] 1.2.840.114 [id number] Univers 00:00:00 00:00:00 Outreach Wondiful A Health 350.1.13.10 ity of [place] 4.2.7.2.686 Jefry as Professio [phone] [address] Office [facility] One 2020-09-01 2020-09-01 Orders Doctor UYEN 1.2.840.114 [id number] Univers 00:00:00 00:00:00 Only Unassigned, FLASH 350.1.13.[address] HOSPITAL 4.2.7.2.686 Jefry as [phone] [address] 2020-08-25 2020-08-25 Refill [facility] 1.2.840.114 [id number] Univers 00:00:00 00:00:00 Wondiful A Health 350.1.13.10 ity of [place] 4.2.7.2.686 Jefry as Professio [phone] [address] One 2020-08-24 2020-08-24 Office Annie [facility] 1.2.840.114 [id number] Univers 15:20:35 16:43:28 Visit Wondiful A Health 350.1.13.10 ity of [place] 4.2.7.2.686 Jefry as Professio [phone] [address] Office [facility] One 2020-08-24 2020-08-24 Outpatient R ANNIE [facility] [id number] Univers 15:00:00 15:00:00 WONDIFUL ity o f [facility] 2020-08-21 2020-08-21 Orders Doctor UYEN 1.2.840.114 [id number] Univers 00:00:00 00:00:00 Only Unassigned, FLASH 350.1.13.[address] HOSPITAL 4.2.7.2.686 Jefry as [phone] [address] 2020-08-10 2020-08-10 Telephone Annie [facility] 1.2.840.114 [id number] 00:00:00 00:00:00 Wondiful A Health 350.1.13.10 [place] 4.2.7.2.686 Professio [phone] [place] [address] Office Building One 2020-08-10 2020-08-10 Telephone Annie [facility] 1.2.840.114 [id number] Univers 00:00:00 00:00:00 Wondiful A Health 350.1.13.10 ity of [place] 4.2.7.2.686 Jefry as Professio [phone] [address] Office Building One 2020-08-09 2020-08-09 Refill Annie, [facility] 1.2.840.114 [id number] 00:00:00 00:00:00 Wondiful A Health 350.1.13.10 [place] 4.2.7.2.686 Professio [phone] [place] [address] Office Building One 2020-08-09 2020-08-09 Refill Annie, [facility] 1.2.840.114 [id number] 00:00:00 00:00:00 Wondiful A Health 350.1.13.10 [place] 4.2.7.2.686 Professio [phone] [place] [address] Office Building One 2020-08-09 2020-08-09 Refill Annie, [facility] 1.2.840.114 [id number] Univers 00:00:00 00:00:00 Wondiful A Health 350.1.13.10 ity of [place] 4.2.7.2.686 Jefry as Professio [phone] [address] Office Building One 2020-08-09 2020-08-09 Refill Annie, [facility] 1.2.840.114 [id number] Univers 00:00:00 00:00:00 Wondiful A Health 350.1.13.10 ity of [place] 4.2.7.2.686 Jefry as Professio [phone] [address] Office Building One 2020-07-27 2020-07-27 Dock Grader Lab, Adc Fam Pob I [facility] 1.2. 840.114 [id number] Univers 09:44:54 10:04:54 Visit Raz Tineo [facility] 350.1.13.10 ity of [place] 4.2.7.2.686 Jefry as Professio [phone] Nd dic[address] Office Building One 2020-07-27 2020-07-27 Office [facility] 1.2.840.114 [id number] 09:07:34 09:44:01 Visit Raz Health 350.1.13.10 [place] 4.2.7.2.686 Professio [phone] nal [facility] Office Building One 2020-07-27 2020-07-27 Office [facility] 1.2.840.114 [id number] Univers 09:07:34 09:44:01 Visit Raz Health 350.1.13.10 it y of [place] 4.2.7.2.686 Jefry as Professio [phone] [address] Office Building One 2020-07-27 2020-07-27 Outpatient [facility] [id number] Univers 09:00:00 09:00:00 RAZ ity of [facility] 2020-07-24 2020-07-24 Outpatient R ANNIE [facility] [id number] Univers 14:00:00 14:00:00 WONDIFUL ity o f [facility] 2020-07-21 2020-07-21 Outpatient R ANNIE [facility] [id number] Univers 15:45:00 15:45:00 WONDIFUL ity o f [facility] 2020-07-21 2020-07-21 Patient [facility] 1.2.840.114 [id number] Univers 00:00:00 00:00:00 Secure Msg Wondiful A Health 350.1.13.10 ity of [place] 4.2.7.2.686 Jefry as Professio [phone] Nd dic[address] Office Building One 2020-07-20 2020-07-20 [facility] [id number] Univers 11:15:00 11:15:00 WONDIFUL ity o f [facility] 2020-06-27 2020-06-27 Outpatient R ANNIE [facility] [id number] Univers 08:00:00 08:00:00 WONDIFUL ity o f [facility] 2020-06-14 2020-06-14 Outpatient R RADIOLOGY [facility] [id number] Univers 00:00:00 00:00:00 ity [facility] 2020-06-13 2020-06-13 Outpatient R MELISSA [facility] [id number] Univers 12:10:00 12:10:00 ALEXSANDER ity [facility] 2020-05-26 2020-05-26 Outpatient R ANNIE [facility] [id number] Univers 15:00:00 15:00:00 WONDIFUL ity o f [facility] 2020-05-23 2020-05-23 Outpatient R IDRIS, [facility] [id number] Univers 14:15:00 14:15:00 ROXY ity [facility] 2020-05-22 2020-05-22 Telephone [facility] 1..840.114 [id number] Univers 00:00:00 00:00:00 Wondiful A Health 350.1.13.10 ity of [place] 4.2.7.2.686 Jefry as Professio [phone] [address] Office Building One 2020-05-16 2020-05-16 Outpatient R MELISSA [facility] [id number] Univers 12:10:00 12:10:00 ALEXSANDER ity [facility] 2020-05-12 2020-05-12 Orders Doctor UYEN 1.2.840.114 [id number] Univers 00:00:00 00:00:00 Only Unassigned, FLASH 350.1.13.[address] [facility] 4.2.7.2.686 Jefry as [phone] [address] 2020-05-11 2020-05-11 Telephone Connie NHSTEPHY 1.2.840.114 [id number] Univers 00:00:00 00:00:00 Kailey Leach 350.1.13.10 ity [place].2.7.2.686 [place] Profess[place] [phone] [address] 2020-05-03 2020-05-03 Office Connie [facility] 1.2.223.048 [id number] Univers 13:10:44 13:40:44 Visit Kailey T Haylee 350.1.13.10 ity of [place] 4.2.7.2.686 [place] Profess[place] [phone] [address] 2020-05-03 2020-05-03 Outpatient R KAILEY BLAND [facility] [id number] Univers 13:30:00 13:30:00 KAILEY BLAND ity of [facility] 2020-05-02 2020-05-02 Hospital Radiology [facility] 1.2.840.114 [id number] Univers 13:00:00 23:59:00 Encounter Haylee 350.1.13.10 ity of [place] 4.2.7.2.686 [place] [phone] [facility] [address] 2020-05-02 2020-05-02 Outpatient R RADIOLOGY [facility] [id number] Univers 00:00:00 00:00:00 ity of [facility] 2020-05-02 2020-05-02 Orders Doctor UYEN 1.2.840.114 [id number] Univers 00:00:00 00:00:00 Only Unassigned, FLASH 350.1.13.[address] [facility] 4.2.7.2.686 Jefry as [phone] [facility] [address] 2020-04-26 2020-04-26 Telephone Connie [facility] 1.2.840.114 [id number] Univers 00:00:00 00:00:00 Strahil T [place] 350.1.13.10 ity [place] 4.2.7.2.686 [place] Profess[place] [phone] [address] 2020-04-13 2020-04-13 Dock Grader Cornel, Miesha Lab Main [facility] 1.2.8 40.114 [id number] Univers 16:39:54 16:54:54 Visit Rubi Valencia [place] 350.1.13. 10 ity of [place] 4.2.7.2.686 [place] Profess[place] [phone] [facility] 2020-04-13 2020-04-13 Office Annie [facility] 1.2.840.114 [id number] Univers 15:41:32 16:28:49 Visit Venkataful A Health 350.1.13.10 ity of [place] 4.2.7.2.686 Jefry as Professio [phone] [facility] [address] [facility] 2020-04-13 2020-04-13 Outpatient R ANNIE [facility] [id number] Univers 15:45:00 15:45:00 WONDIFUL ity o f [facility] 2020-04-13 2020-04-13 Orders Doctor UYEN 1.2.840.114 [id number] Univers 00:00:00 00:00:00 Only Unassigned, FLASH 350.1.13.10 [place] 4.2.7.2.686 Jefry as [phone] [facility] 00[address] [place] 2020-04-05 2020-04-05 Telephone Annie [facility] 1.2.840.114 [id number] Univers 00:00:00 00:00:00 Venkataful A Health 350.1.13.10 ity of [place] 4.2.7.2.686 Jefry as Professio [phone] [facility] 044 [place] Office [facility] 2020-04-04 2020-04-04 Emergency Daniel Mina [facility] 1.2.840.114 [id number] Univers 17:35:00 22:35:00 T [place] 350.1.13.10 i ty [place] 4.2.7.2.686 [place] [phone] [facility] 084 [place] 2020-04-04 2020-04-04 Nurse Nurse, [facility] Urgent Care [facility] 1.2 .840.114 [id number] Univers 17:42:16 17:44:25 Visit Jony Roy Health 350.1.13.10 ity of [place] 4.2.7.2.686 Jef[place] as Professio [phone] [address] Office [facility] 2020-04-04 2020-04-04 Outpatient [facility] [id number] Univers 17:20:00 17:20:00 TRACY villar o diana [facility] 2020-03-24 2020-03-24 [facility]phone [facility] 1.2.840.114 [id number] Univers 00:00:00 00:00:00 Wondiful A Health 350.1.13.10 ity of [place] 4.2.7.2.686 Jefry as Professio [phone] [address] Office [facility] 2020-03-21 2020-03-21 Outpatient [facility] [id number] Univers 14:20:00 14:20:00 RAZ itjose manuel of [facility] 2020-03-21 2020-03-21 [facility] 1..840.114 [id number] Univers 00:00:00 00:00:00 Wondiful A Health 350.1.13.10 ity of [place] 4.2.7.2.686 Jefry as Professio [phone] [address] 2020-03-06 2020-03-06 Floweree [facility] 1.2.840.114 [id number] Univers 00:00:00 00:00:00 Wondiful A Health 350.1.13.10 ity of [place] 4.2.7.2.686 Jefry as Professio [phone] [address] Office [facility] 2020-03-06 2020-03-06 Floweree [facility] 1.2.840.114 [id number] Univers 00:00:00 00:00:00 Wondiful A Health 350.1.13.10 ity of [place] 4.2.7.2.686 Jefry as Professio [phone] [address] 2020-03-01 2020-03-01 Refill [facility] 1.2.840.114 [id number] Univers 00:00:00 00:00:00 Wondiful A Health 350.1.13.10 ity of [place] 4.2.7.2.686 Jefry as Professio [phone] [address] Office Building One 2020-03-01 2020-03-01 Refill Annie [facility] 1.2.840.114 [id number] Univers 00:00:00 00:00:00 Wondiful A Health 350.1.13.10 ity of [place] 4.2.7.2.686 Jef[place] as Professio [phone] [address] Office Building One 2020-03-01 2020-03-01 Patient Annie [facility] 1.2.840.114 [id number] Univers 00:00:00 00:00:00 Secure Msg Wondiful A Health 350.1.13.10 ity of [place] 4.2.7.2.686 [place]ef[place] as Professio [phone] [address] Office [facility] One 2020-03-01 2020-03-01 Refill Doctor [facility] 1.2.840.114 [id number] Univers 00:00:00 00:00:00 Unassigned, Health 350.1.13.[address] [place] 4.2.7.2.686 Jefry as Professio [phone] [address] Office [facility] 2020-02-25 2020-02-25 Hospital Radiology [facility] 1.2.840.114 [id number] Univers 11:00:00 23:59:00 Encounter [place] 350.1.13.10 [place] 4.2.7.2.686 [place] [phone] [facility] 806 [place] 2020-02-25 2020-02-25 Outpatient R RADIOLOGY [facility] [id number] Univers 00:00:00 00:00:00 ity of [facility] 2020-02-25 2020-02-25 Orders Doctor QIU 1..840.114 [id number] Univers 00:00:00 00:00:00 Only Unassigned, FLASH 350.1.13.[address] HOSPITAL 4.2.7.2.686 Jefry as [phone] [facility] [address] 2020-02-22 2020-02-22 [facility] [id number] Univers 16:15:00 16:15:00 WONDIFUL ity o f [facility] 2020-02-03 2020-02-03 Telephone [facility] 1.2.840.114 [id number] Univers 00:00:00 00:00:00 Wondiful A Health 350.1.13.10 ity of [place] 4.2.7.2.686 Jefry as Professio [phone] [address] Office Building One 2020-02-02 2020-02-02 Telephone [facility] 1.2.840.114 [id number] Univers 00:00:00 00:00:00 Wondiful A Health 350.1.13.10 ity of [place] 4.2.7.2.686 Jef[place] as Professio [phone] [address] Office Building [facility] 2020-02-02 2020-02-02 Floweree [facility] 1.2.840.114 [id number] Univers 00:00:00 00:00:00 Wondiful A Health 350.1.13.10 ity of [place] 4.2.7.2.686 Jefry as Professio [phone] [address] Office [facility] 2020-02-01 2020-02-01 Urgent Provider, [facility] 1.2.840.114 [id number] Univers 19:16:44 20:07:25 Care Rubi Valencia A Health 350.1.13.1 0 ity of [place] 4.2.7.2.686 Jef[place] as Professio [phone] [address] Office [facility] 2020-02-01 2020-02-01 Outpatient [facility] [id number] Univers 19:40:00 19:40:00 WONDIFUL ity o f [facility] 2020-01-20 2020-01-20 Orders Doctor UYEN 1.2.840.114 [id number] Univers 00:00:00 00:00:00 Only Unassigned, FLASH 350.1.13.[address] HOSPITAL 4.2.7.2.686 Jefry as [phone] [address] 2020-01-13 2020-01-16 Office Annie [facility] 1.2.840.114 [id number] Univers 13:17:43 23:46:34 Visit Rubi Marinelli Health 350.1.13.10 ity of [place] 4.2.7.2.686 Jefry as Professio [phone] Nd dic[address] Office [facility] One 2020-01-13 2020-01-13 Dock Grader Lab, Adc Fam Pob I [facility] 1.2. 840.114 [id number] Univers 14:01:56 14:14:40 Visit Rubi Valencia Health 350.1.13.1 0 ity of [place] 4.2.7.2.686 Jef[place] as Professio [phone] Nd dic[address] Office [facility] 2020-01-13 2020-01-13 Outpatient R ANNIE [facility] [id number] Univers 13:15:00 13:15:00 WONDIFUL ity o f [facility] 2020-01-06 2020-01-06 Outpatient GREGORY POLLOCK [facility] [id number] [place] 00:00:00 00:00:[address] 2019-12-16 2019-12-16 Emergency [facility] 1.2.195.784 [id number] [facility] 17:19:00 19:27:00 Nayana Bryan Leach 350.1.13.10 i ty [place] 4.2.7.2.686 [place] [phone] [facility] [address] [place] 2019-12-15 2019-12-15 Outpatient VELIA RIDDLE MDA MDA [id number] 14:28:05 14:28:05 YENIFER ackerman 2019-12-15 2019-12-15 Outpatient VELIA RIDDLE MDA MDA [id number] 13:59:53 14:11:39 YENIFER ackerman 2019-12-10 2019-12-10 Orders Doctor QIU 1.2.840.114 [id number] Univers 00:00:00 00:00:00 Only Unassigned, FLASH 350.1.13.[address] [facility] 4.2.7.2.686 Jefry as [phone] [address] 2019-12-08 2019-12-08 Outpatient VELIA RIDDLE MDA [facility] [id number] [place] 00:00:00 00:00:00 YENIFER Balajienmanuel ackerman 2019-12-07 2019-12-07 Telephone Annie [facility] 1.2.840.114 [id number] [facility] 00:00:00 00:00:00 Wondiful A [place] 350.1.13.10 [place] [phone] [address] 2019-12-02 2019-12-02 Outpatient GREGORY POLLOCK [facility] [id number] [place] 00:00:00 00:00:00 614 Method i 2019-12-02 2019-12-02 Outpatient GREGORY POLLOCK [facility] [id number] [place] 00:00:00 00:00:00 615 Method i 2019-11-30 2019-11-30 [facility] 1.2.840.114 [id number] [facility] 00:00:00 00:00:00 Wondiful A Health 350.1.13.10 ity of [place] 4.2.7.2.686 [place] as Professio [phone] [address] Office [facility] One 2019-11-24 2019-11-24 Outpatient R ANNIE [facility] [id number] Univers 10:30:00 10:30:00 WONDIFUL ity o f [facility] 2019-11-24 2019-11-24 Dock Grader 2, Adc Lab [facility] 1.2.840.114 [id number] Univers 08:15:09 08:30:09 Visit Rubi Valencia A [place] 350.1.13. 10 [place]2.[place].2.[place] [phone] [facility] 353 [facility] 2019-11-23 2019-11-23 Office Annie [facility] 1.2.840.114 [id number] Univers 16:19:16 16:56:30 Visit Wondiful A [place] 350.1.13.10 [place] of [place] 4.2.7.2.[place] [phone] Nd dical nal 044 [facility] 2019-11-23 2019-11-23 Outpatient R ANNIE [facility] [id number] [facility] 16:15:00 16:15:00 WONDIFUL ity o f [facility] 2019 2019 Outpatient GREGORY POLLOCK [facility] [id number] [place] 00:00:00 00:00:00 388 Method i 2019-11-04 2019-11-04 [facility] 1.2.840.114 [id number] [facility] 00:00:00 00:00:00 Wondiful A Health 350.1.13.10 ity of [place] [id number] Jefry as Professio [phone] [address] 2019-11-04 2019-11-04 Lonnie Valencia [facility] 1.2.840.114 [id number] [facility] 00:00:00 00:00:00 [facility] [id number] [facility] [place] [id number] Jefry as Professio [phone] [address] 2019-11-03 2019-11-03 Outpatient [place]URU, MDA MDA [id number] 00:00:00 00:00:00 YENIFER ackerman 2019-11-02 2019-11-02 Outpatient [place]U, MDA MDA [id number] 11:04:49 11:04:49 YENIFER ackerman 2019-11-01 2019-11-01 Orders Doctor QIU 1.2.840.[id number] [place] [id number] 00:00:00 00:00:00 Only Unassigned, FLASH 350.1.13.[address] [facility] 4.2.7.2.686 Jefry as [phone] [address] 2019-10-27 2019-10-28 Outpatient [place]URU, MDA MDA [id number] 14:04:02 09:59:15 YENIFER ackerman 2019-10-20 2019-10-20 Outpatient [place]URU, MDA MDA [id number] 00:00:00 00:00:00 YENIFER Balaji o n 2019-10-19 2019-10-19 Outpatient [place], MDA MDA [id number] 14:01:57 16:41:09 YENIFER Balaji o n 2019-10-13 2019-10-13 Outpatient [place]URU, MDA MDA [id number] 11:38:55 14:16:11 YENIFER Balaji o n 2019-10-07 2019-10-07 [facility] 1.2.840.114 [id number] [facility] 00:00:00 00:00:00 [facility] 350.1.13.10 [facility] [place] [id number] Jefry as Professio [phone] Nd dical nal 0[address] [facility] 2019-10-06 2019-10-06 [facility] [id number] [facility] 18:00:00 18:00:00 [facility] 2019-10-06 Outpatient EL [place]UNURU, MDA MDA [id number] 16:51:52 16:56:40 YENIFER Balaji maurice ackerman 2019-10-06 2019-10-06 Outpatient [place]URU, MDA MDA [id number] 15:28:24 15:28:24 YENIFER Balaji o n 2019-10-05 2019-10-05 [facility] 1.2.840.114 [id number] Univers 00:00:00 00:00:00 [facility] 350.1.13.10 ity of [place] 4.2.7.2.686 Jefry as Professio [phone] Nd dical nal 044 [facility] 2019-10-04 2019-10-04 Outpatient EL MUSUNURU, MDA MDA [id number] 14:45:10 14:47:15 YENIFER Balaji o tyron 2019-09-29 2019-09-29 [facility] [id number] Univers 14:47:22 23:59:00 CHELITA ortiz [facility] 2019-09-29 2019-09-29 [facility] 1.2.012.910 [id number] Univers 14:47:00 23:59:00 Encounter Chelita Haylee 350.1.13.10 ity of [place]armad Rams[place] 4.2.7.2.686 [place] [facility] [phone] [facility] [address] 2019-09-27 2019-09-27 Office Ruiz [facility] 1.2.840.114 [id number] Univers 13:11:52 13:41:52 Visit Chelita MISAEL 350.1.13.10 ity of [place]2.[place] [phone] [facility] [address] 2019-09-27 2019-09-27 [facility] [id number] Univers 13:15:00 13:15:00 CHELITA villar o f [facility] 2019-09-27 2019-09-27 Orders Doctor UYEN 1.2.840.114 [id number] Univers 00:00:00 00:00:00 Only Unassigned, FLASH 350.1.13.[address] [facility] 4.2.7.2.686 Jefry as [phone] [facility] [address] 2019-09-21 2019-09-21 Orders Doctor UYEN 1.2.840.114 [id number] Univers 00:00:00 00:00:00 Only Unassigned, FLASH 350.1.13.[address] [facility] 4.2.7.2.686 Jefry as [phone] [facility] [address] 2019-09-20 2019-09-20 Patient Doctor UYEN 1.2.840.114 [id number] Univers 00:00:00 00:00:00 Secure Msg Unassigned, FLASH 350.1.13.[address] [facility] 4.2.7.2.686 Jefry as [phone] [facility] [address] 2019-09-16 2019-09-16 Telephone Annie [facility] 1.2.840.114 [id number] Univers 00:00:00 00:00:00 [facility] 350.1.13.10 ity of [place] 4.2.7.2.686 Jefry as [place] [phone] [facility] 044 [facility] 2019-09-13 2019-09-13 Outpatient R ANNIE [facility] [id number] Univers 15:32:34 23:59:00 WONDIFUL ity o f [facility] 2019-09-13 2019-09-13 Outpatient R ANNIE [facility] [id number] Univers 00:00:00 00:00:00 WONDIFUL ity o f [facility] 2019-09-09 2019-09-09 [facility] 1..840.114 [id number] Univers 00:00:00 00:00:00 Wondiful A [place] 350.1.13.10 it[place].2.[place] Profess[place] [phone] Nd dical nal [address] [place] [address] 2019-09-09 2019-09-09 Patient [facility] 1.2.840.114 [id number] Univers 00:00:00 00:00:00 Secure Msg Wondiful A [place] 350.1.13.10 ity of [place] 4.2.7.2.[place] Profess[place] [phone] Nd dical nal [address] [place] [address] 2019-09-08 2019-09-08 Case [facility] 1.2.840.114 [id number] Univers 00:00:00 00:00:00 Management Wondiful A [place] 350.1.13.10 it[place] of [place].2.7.2.686 [place] Profess[place] [phone] Nd dical nal [address] [place] [address] 2019-09-08 2019-09-08 Telephone [facility] 1.2.840.114 [id number] Univers 00:00:00 00:00:00 Wondiful A [place] 350.1.13.10 it[place] of [place].2.7.2.[place] [phone] Nd dical nal [address] [place] [address] 2019-09-08 2019-09-08 Lonnie [facility] 1.2.840.114 [id number] Univers 00:00:00 00:00:00 [facility] 350.1.13.10 ity of [place] 4.2.7.2.686 [place]ef[place] as Professio [phone] Nd dical nal [address] One 2019-09-07 2019-09-07 Dock Grader 2, Adc Lab [facility] 1.2.840.114 [id number] Univers 16:06:15 16:21:15 Visit Rubi Valencia A [place] 350.1.13. 10 ity of [place] 4.2.7.2.686 [place] Profess[place] [phone] Nd dical nal 353 [facility] 2019-09-07 2019-09-07 Office [facility] 1.2.840.114 [id number] Univers 15:10:42 16:02:12 Visit Wondiful A [place] 350.1.13.10 ity of [place] 4.2.7.2.686 [place] Profess[place] [phone] [address] 2019-09-07 2019-09-07 Outpatient R ANNIE [facility] [id number] Univers 15:30:00 15:30:00 WONDIFUL ity o f [facility] 2019-09-07 2019-09-07 Telephone [facility] 1.2.840.114 [id number] Univers 00:00:00 00:00:00 Wondiful A [place] 350.1.13.10 ity of [place] 4.2.7.2.686 [place] [phone] [address] 2019-09-07 2019-09-07 Orders Doctor UYEN 1.2.840.114 [id number] Univers 00:00:00 00:00:00 Only Unassigned, FLASH 350.1.13.[address] [facility] 4.2.7.2.686 Jefry as [phone] [address] 2019-09-02 2019-09-02 Telephone Annie [facility] 1.2.840.114 [id number] Univers 00:00:00 00:00:00 Wondiful A [place] 350.1.13.10 ity of [place] 4.2.7.2.[place] [phone] Nd dical [address] 2019-08-31 2019-08-31 Tele[facility] 1.2.840.114 [id number] Univers 00:00:00 00:00:00 [facility] 350.1.13.10 ity of [place] 4.2.7.2.686 [place]ef[place] as Professio [phone] Nd dical nal [address] [place] Office [facility] 2019-08-16 2019-08-16 [facility] 1.2.840.114 [id number] Univers 00:00:00 00:00:00 [facility] 350.1.13.10 ity of [place] 4.2.7.2.686 [place]ef[place] as Professio [phone] [facility] nal [address] [facility] 2019-08-16 2019-08-16 Telephone [facility] 1.2.840.114 [id number] Univers 00:00:00 00:00:00 Wondiful A [place] 350.1.13.10 it[place].2.7.2.[place] [phone] [address] 2019-08-09 2019-08-09 [facility] [id number] Univers 10:15:00 10:15:00 WONDIFUL ity o f [facility] 2019-08-07 2019-08-07 Abelardo NascimentoNEW [facility] 1.2.840.114 [id number] Univers 00:00:00 00:00:00 Davina [place] 350.1.13.10 i ty of [place].2.7.2.686 [place] [phone] [facility] 2019-07-28 2019-07-28 [facility] 1.2.840.114 [id number] Univers 00:00:00 00:00:00 [facility] 350.1.13.10 ity of [place] 4.2.7.2.686 Jefry as Professio [phone] Nd dicnm nal [address] [place] Office [facility] 2019-07-12 2019-07-12 Telephone [facility] 1.2.840.114 [id number] Univers 00:00:00 00:00:00 Strahil T [place] 350.1.13.10 it[place].2.7.2.[place] [phone] Nd dicethan nal 085 [facility] 2019-07-09 2019-07-09 Outpatient R ANNIE [facility] [id number] Univers 08:15:00 08:15:00 WONDIFUL ity o f [facility] 2019-07-09 2019-07-09 Telemedici AnnieNEW [facility] 1.2.840.114 [id number] Univers 07:12:02 07:27:02 ne Visit [facility] 350.1.13.10 ity of [place] 4.2.7.2.686 Jef[place] as Professio [phone] [facility] 0[address] [facility] 2019-07-07 2019-07-07 Outpatient Raju_P MMG MMG [id number] [place] 12:12:00 12:12:00 0325 [facility] 2019-06-30 2019-06-30 Refill [facility] 1.2.840.114 [id number] Univers 00:00:00 00:00:00 [facility] 350.1.13.10 ity of [place] 4.2.7.2.686 Jef[place] as Professio [phone] [facility] [address] [place] Office [facility] 2019-06-16 2019-06-16 Telephone [facility] 1.2.840.114 [id number] Univers 00:00:00 00:00:00 [facility] 350.1.13.10 ity of [place] 4.2.7.2.686 [place]ef[place] as Professio [phone] [facility] [address] [place] Office [facility] 2019-06-14 2019-06-14 Telephone [facility] 1.2.840.114 [id number] Univers 00:00:00 00:00:00 [facility] 350.1.13.10 ity of [place] 4.2.7.2.686 [place]ef[place] as Professio [phone] [facility] [address] [place] Office [facility] 2019-06-11 2019-06-11 Office [facility] 1.2.840.114 [id number] Univers 11:15:43 11:54:57 Visit [facility] 350.1.13.10 ity of [place] 4.2.7.2.686 [place]ef[place] as Professio [phone] [address] Office [facility] 2019-06-11 2019-06-11 [facility] [id number] Univers 11:15:00 11:15:00 WONDIFUL ity o f [facility] 2019-06-11 2019-06-11 Telephone [facility] 1.2.840.114 [id number] Univers 00:00:00 00:00:00 [facility] 350.1.13.10 ity of [place] 4.2.7.2.686 [place] as Professio [phone] [address] Office [facility] 2019-06-09 2019-06-09 Orders Doctor UYEN 1..840.114 [id number] Univers 00:00:00 00:00:00 Only Unassigned, FLASH 350.1.13.[address] [facility] 4.2.7.2.686 Jefry as [phone] [facility] [address] 2019-05-27 2019-05-27 Emergency [facility] 1.2.125.436 [id number] Univers 11:23:50 16:38:00 Katye R Hay[place] 350.1.13.10 i ty [place]2.7.2.686 [place] [phone] [facility] [address] [place] 2019-05-27 2019-05-27 Emergency X CHOLO, [facility] ERT [id number] Univers 11:23:50 16:38:00 KATYE ity of [facility] 2019-05-27 2019-05-27 Emergency X CHOLO, [facility] ERT [id number] Univers 11:23:50 16:38:00 KATYE ity of [facility] 2019-05-24 2019-05-24 Telephone [facility] 1.2.840.114 [id number] Univers 00:00:00 00:00:00 [facility] 350.1.13.10 ity of [place] 4.2.7.2.686 Jefry as Professio [phone] Nd dical nal [address] [facility] 2019-05-20 2019-05-20 Emergency [facility] 1.2.860.092 [id number] Univers 11:36:54 15:28:00 Juan Daniel Hunt [place] 350.1.13.10 ity of [place] 4.2.7.2.686 [place] [phone] [address] 2019-05-19 2019-05-19 Telephone [facility] 1.2.840.114 [id number] Univers 00:00:00 00:00:00 [facility] 350.1.13.10 ity of [place] 4.2.7.2.686 Jefry as Professio [phone] [facility] nal [address] [place] [address] 2019-05-18 2019-05-18 Emergency [facility] 1.2.338.956 [id number] Univers 14:42:52 20:01:00 Johnnie S [place] 350.1.13.10 i ty of [place] 4.2.7.2.686 [place] [phone] [address] 2019-05-18 2019-05-18 Emergency X [facility] [id number] Univers 14:42:52 20:01:00 JOHNNIE ity of [facility] 2019-05-18 2019-05-18 Office [facility] 1.2.840.114 [id number] Univers 14:08:35 14:31:10 Visit [facility] 350.1.13.10 ity of [place] 4.2.7.2.686 Jefry as Professio [phone] [facility] 0[address] [facility] 2019-04-27 2019-04-27 Office [facility] 1.2.840.114 [id number] Univers 14:03:56 14:56:08 Visit Katie [place] 350.1.13.10 ity of [place].2.7.2.[place] [phone] Nd dicnm nal 059 [facility] 2019-04-27 2019-04-27 Outpatient R RILEY [facility] [id number] Univers 14:00:00 14:56:08 SENDEUGENE ity of [facility] 2019-03-25 2019-03-25 Outpatient R REILLY, [facility] [id number] Univers 13:00:00 14:53:50 TONNY villar o f [facility] 2018-12-30 2018-12-30 Emergency [facility] 1.2.774.178 [id number] Univers 16:33:05 19:07:00 Juan Daniel S [place] 350.1.13.10 ity of [place] 4[place]2.7.2.686 [place] [phone] [facility] [address] [place] 2018-12-29 2018-12-29 Refill [facility] 1.2.840.114 [id number] Univers 00:00:00 00:00:00 [facility] 350.1.13.10 ity of [place] 4.2.7.2.686 [place]ef[place] as Professio [phone] [address] Office Building One 2018-12-25 2018-12-25 Office [facility] 1.2.840.114 [id number] Univers 16:26:52 17:15:59 Visit [facility] 350.1.13.10 ity of [place] 4.2.7.2.686 [place]ef[place] as Professio [phone] [address] Office Building One 2018-12-11 2018-12-11 [facility] 1.2.840.114 [id number] Univers 15:30:00 23:59:00 Encounter Roxy May [place] 350.1.13.10 ity of [place].2.7.2.686 [place] [phone] [facility] [address] [place] 2018-12-09 2018-12-09 Telephone [facility] 1.2.840.114 [id number] Univers 00:00:00 00:00:00 [facility] 350.1.13.10 ity of [place] 4.2.7.2.686 [place] as Professio [phone] [address] Office Building One 2018-12-08 2018-12-08 Orders Doctor UYEN 1.2.840.114 [id number] Univers 00:00:00 00:00:00 Only Unassigned, FLASH 350.1.13.[address] [facility] 4.2.7.2.686 Jefry as [phone] [address] 2018-12-02 2018-12-02 Telephone [facility] 1.2.840.114 [id number] Univers 00:00:00 00:00:00 [facility] 350.1.13.10 ity of [place] 4.2.7.2.686 Jefry as Professio [phone] [facility] [address] [place] [address] One 2018-12-02 2018-12-02 Orders Doctor UYEN 1.2.840.114 [id number] Univers 00:00:00 00:00:00 Only Unassigned, FLASH 350.1.13.[address] [facility] 4.2.7.2.686 Jefry as [phone] [address] 2018-11-26 2018-11-26 Office [facility] 1.2.840.114 [id number] Univers 07:58:43 08:41:48 Visit [facility] 350.1.13.10 ity of [place] 4.2.7.2.686 [place]ef[place] as Professio [phone] [address] Office Building One 2018-11-20 2018-11-23 Dock Grader 1, Adc Lab [facility] 1.2.840.114 [id number] Univers 08:45:28 07:47:30 Visit Annie Rubi Isis [place] 350.1.13. 10 ity [place]2.7.2.[place] [phone] [address] 2018-11-20 2018-11-20 Orders Doctor UYEN 1.2.840.114 [id number] Univers 00:00:00 00:00:00 Only Unassigned, FLASH 350.1.13.[address] [facility] 4.2.7.2.686 Jefry as [phone] [address] 2018-11-17 2018-11-17 [facility] 1.2.056.711 [id number] Univers 13:59:39 23:59:00 Encounter Wondiful A [place] 350.1.13.10 ity of [place] 4.2.7.2.[place] [phone] [facility] [address] 2018-11-17 2018-11-17 Telephone [facility] 1.2.840.114 [id number] Univers 00:00:00 00:00:00 [facility] 350.1.13.10 ity of [place] 4.2.7.2.686 Jef[place] as Professio [phone] [address] Office Building One 2018-11-17 2018-11-17 Orders Doctor UYEN 1.2.840.114 [id number] Univers 00:00:00 00:00:00 Only Unassigned, FLASH 350.1.13.[address] [facility] 4.2.7.2.686 Jefry as [phone] [facility] [address] [place] 2018-11-10 2018-11-10 Office [facility] 1.2.840.114 [id number] Univers 15:59:52 16:59:49 Visit [facility] 350.1.13.10 ity of [place] 4.2.7.2.686 Jefry as Professio [phone] [address] Office [facility] 2018-11-09 2018-11-09 Telephone [facility] 1.2.840.114 [id number] Univers 00:00:00 00:00:00 [facility] 350.1.13.10 ity of [place] 4.2.7.2.686 Jef[place] as Professio [phone] [address] Office [facility] 2018-11-06 2018-11-06 Telephone [facility] 1.2.840.114 [id number] Univers 00:00:00 00:00:00 [facility] 350.1.13.10 ity of [place] 4.2.7.2.686 Jef[place] as Professio [phone] [address] Office [facility] Results Test Description Test Time Test Comments Results Result Comments Source POCT URINALYSIS W SPECIFIC GRAVITY 2022-08-21 18:03:00 Test Item Value Reference Range Interpretation Comme nts POCT U SP GRAV (test code = 3255) 1.020 mg/dl 1.005-1.025 POCT PH U (test code = 3254) 5 mg/dl 5-8 POCT U LEUK EST (test code = 3263) Neg Negative - Negative POCT U NIT (test code = 3262) Neg Negative - Negative POCT U PROT (test code = 3259) Trace Negative - Negative POCT U GLU (test code = 3256) 250 Negative - Negative POCT U KETONE (test code = 3258) Neg Negative - Negative POCT U UROBILI (test code = 3260) Neg 0.2-1 POCT U BILI (test code = 3261) Neg Negative - Negative POCT U BLD (test code = 3257) Neg Negative - Negative POCT U COLOR (test code = 3266) Yellow POCT U APPEAR (test code = 3267) Clear [facility] [id number] 10:30:43 Test Item Value Reference Range Interpretation Comments SCAN RESULT (test code = 7603012) See attachment Miscellaneous lab [id number] 10:30:43Scan Pfvinu4607/31/2022 10:[address] [facility] 2022-07-11 20:15:50 Test Item Value Reference Range Interpretation Comments POCT Molecular FluA (test code = Negative Negative 59231-0) POCT Molecular FluB (test code = Negative Negative 77748-1) Lab Interpretation (test code = Normal 01643-6) [facility] MOLECULAR [id number] 20:15:50 Test Item Value Reference Range Interpretation Comments POCT Molecular FluA (test code = Negative Negative 40361-7) POCT Molecular FluB (test code = Negative Negative 26962-2) Lab Interpretation (test code = Normal 55833-7) [facility] GLUCOSE (AUTOMATED)2022-06-11 18:31:08 Test Item Value Reference Range Interpretation Comments POCT GLU (test code = 3856226048) 238 mg/dL 70-110 H Lab Interpretation (test code = Abnormal 54501-6) [facility] GLUCOSE (AUTOMATED)2022-06-11 15:45:15 Test Item Value Reference Range Interpretation Comments POCT GLU (test code = 6019421175) 202 mg/dL 70-110 H Lab Interpretation (test code = Abnormal 33603-5) [facility] GLUCOSE (AUTOMATED)2022-06-11 02:38:12 Test Item Value Reference Range Interpretation Comments POCT GLU (test code = 1359862671) 282 mg/dL 70-110 H Lab Interpretation (test code = Abnormal 25029-9) [facility] GLUCOSE (AUTOMATED)2022-06-10 22:25:18 Test Item Value Reference Range Interpretation Comments POCT GLU (test code = 6932472327) 207 mg/dL 70-110 H Lab Interpretation (test code = Abnormal 67101-3) [facility] GLUCOSE (AUTOMATED)2022-06-10 18:34:57 Test Item Value Reference Range Interpretation Comments POCT GLU (test code = 9732269812) 157 mg/dL 70-110 H Lab Interpretation (test code = Abnormal 99207-7) [facility] GLUCOSE (AUTOMATED)2022-06-10 15:02:38 Test Item Value Reference Range Interpretation Comments POCT GLU (test code = 5398091788) 164 mg/dL 70-110 H Lab Interpretation (test code = Abnormal 15315-7) [facility] GLUCOSE (AUTOMATED)2022-06-10 02:35:29 Test Item Value Reference Range Interpretation Comments POCT GLU (test code = 0869397442) 176 mg/dL 70-110 H Lab Interpretation (test code = Abnormal 11762-5) [facility]2022-06-09 22:36:02 Test Item Value Reference Range Interpretation Comments POCT GLU (test code = 0681324336) 141 mg/dL 70-110 H Lab Interpretation (test code = Abnormal 25486-2) [facility] GLUCOSE (AUTOMATED)2022-06-09 17:59:48 Test Item Value Reference Range Interpretation Comments POCT GLU (test code = 2793793588) 221 mg/dL 70-110 H Lab Interpretation (test code = Abnormal 57087-3) [facility] GLUCOSE (AUTOMATED)2022-06-09 14:05:00 Test Item Value Reference Range Interpretation Comments POCT GLU (test code = 5418595733) 191 mg/dL 70-110 H Lab Interpretation (test code = Abnormal 47521-1) [facility] NorthwestLamaic Acid Whole [id number] 11:01:54 Test Item Value Reference Range Interpretation Comments LACTIC ACID (test code = 1.87 mmol/L 0.50-2.20 1951369787) Lab Interpretation (test code = Normal 07743-0) [facility] GLUCOSE (AUTOMATED)2022-06-09 02:33:04 Test Item Value Reference Range Interpretation Comments POCT GLU (test code = 4796114289) 221 mg/dL 70-110 H Lab Interpretation (test code = Abnormal 50235-3) [facility] GLUCOSE (AUTOMATED)2022-06-08 22:54:59 Test Item Value Reference Range Interpretation Comments POCT GLU (test code = 8766690019) 215 mg/dL 70-110 H Lab Interpretation (test code = Abnormal 08920-7) [facility] GLUCOSE (AUTOMATED)2022-06-08 22:49:01 Test Item Value Reference Range Interpretation Comments POCT GLU (test code = 2698454655) 207 mg/dL 70-110 H Lab Interpretation (test code = Abnormal 59127-2) [facility] NorthwestC-REACTIVE [id number] 17:45:48 Test Item Value Reference Range Interpretation Comments CRP (test code = 9122647231) 12.3 mg/dL <=0.8 H Lab Interpretation (test code = Abnormal 45950-6) [facility] GLUCOSE (AUTOMATED)2022-06-08 14:26:08 Test Item Value Reference Range Interpretation Comments POCT GLU (test code = 3322098970) 254 mg/dL 70-110 H Lab Interpretation (test code = Abnormal 03412-4) [facility] GLUCOSE (AUTOMATED)2022-06-08 02:38:40 Test Item Value Reference Range Interpretation Comments POCT GLU (test code = 9622868180) 181 mg/dL 70-110 H Lab Interpretation (test code = Abnormal 24741-4) [facility] GLUCOSE (AUTOMATED)2022-06-07 22:53:00 Test Item Value Reference Range Interpretation Comments POCT GLU (test code = 7473244947) 178 mg/dL 70-110 H Lab Interpretation (test code = Abnormal 54704-2) [facility] NorthwestPROCALCITONIN2023-02-24 19:17:11 Test Item Value Reference Range Interpretation Comments Procalcitonin (test 0.24 ng/mL <=0.07 H code = 4115997924) MARIE (test code = MARIE) INTERPRETATION OF PROCALCITONIN RESULTS IN ADULTS >= 18 YEARS OF AGE Initiation and discontinuation of antibiotics on patients with suspected or confirmed Lower Respiratory Tract Infection in Adults >= 18 years of age. + +-------- --------+ + -----+|Procalcitonin |Interpretation ?|Antibiotic ? ? |Considerations ? |ng/mL ? | ?|recommendation | ? + +-------- --------+ + -----+| <0.1 ? | Bacterial ? ? ?| Strongly ? ? ?| ? | ?| infection very | discouraged ? | Overruling: ? | ?| unlikely ? ? ? | ? | ? Clinically unstable ? ? ? + +-------- --------+ + ? High risk for adverse ? ? | <0.25 ?| Bacterial ? ? ?| Discouraged ? | ? outcome ? | ?| infection ? ? ?| ? | ? SEE IMPORTANT NOTE ?| ?| unlikely ? ? ? | ? | ? + +-------- --------+ + -----+| >=0.25 ? ? ? | Bacterial ? ? ?| Encouraged ? ?| ? | ?| infection ? ? ?| ? | ? | ?| likely ? | ? | Consider treatment failure ?+ +------- ---------+ -+ if levels does not decrease | >0.5 ? | Bacterial ? ? ?| Strongly ? ? ?| appropriately ? | ?| infection very | encouraged ? ?| ? | ?| likely ? | ? | ? + +-------- --------+ + -----+ Discontinuation of antibiotics in high-acuity patients with suspected or confirmed sepsis in Adults >= 18 years of age. + +-------- --------+ + -----+|Procalcitonin |Interpretation ?|Antibiotic ? ? |Considerations ? |ng/mL ? | ?|recommendation | ? + +-------- --------+ + -----+| <0.25 ?| Bacterial ? ? ?| Strongly ? ? ?| ? | ?| infection very | discouraged ? | Overruling: ? | ?| unlikely ? ? ? | ? | ? Clinically unstable ? ? ? + +-------- --------+ + ? High risk for adverse ? ? | <0.5 or drop | Bacterial ? ? ?| Discouraged ? | ? outcome ? | >80% from ? ?| infection ? ? ?| ? | ? SEE IMPORTANT NOTE ?| highest PCT ?| unlikely ? ? ? | ? | ? | level ?| ?| ? | ? + +-------- --------+ + -----+| >=0.5 ?| Bacterial ? ? ?| Encouraged ? ?| ? | ?| infection ? ? ?| ? | ? | ?| likely ? | ? | Consider treatment failure ?+ +------- ---------+ -+ if levels does not decrease | >1.0 ? | Bacterial ? ? ?| Strongly ? ? ?| appropriately ? | ?| infection very | encouraged ? ?| ? | ?| likely ? | ? | ? + +-------- --------+ + -----+ Percentage of drop of Procalcitonin calculation for Discontinuation of antibiotics in high-acuity patients with suspected or confirmed sepsis in Adults >= 18 years of age. ? Procalcitonin highest{}-Procalcitonin current{}Delta Procalcitonin = x100% ? Procalcitonin current {} IMPORTANT NOTE: Procalcitonin may be elevated without bacterial infection by physiologic stress related to trauma, yo, chronic dialysis, metastatic cancer, surgery in the past seven days, malaria, some fungal infections, and some forms of vasculitis. The interpretation algorithm may not apply to patients with immunosuppression (equivalent of >10 mg of prednisone daily), HIV with CD4 cell count < 350 cells/mm3, active malignancy on systemic chemotherapy, solid organ transplant or hematopoietic stem cell transplantation, or hospital acquired pneumonia. Additionally, some clinical trials of procalcitonin have excluded patients with shock requiring vasopressor use, acute respiratory failure requiring mechanical ventilation, or those with known lung abscess/empyema. For further information please refer to:[email or web address] Lab Interpretation Abnormal (test code = 03680-2) [facility] GLUCOSE (AUTOMATED)2022-06-07 17:23:08 Test Item Value Reference Range Interpretation Comments POCT GLU (test code = 4595720148) 219 mg/dL 70-110 H Lab Interpretation (test code = Abnormal 49504-0) [facility] GLUCOSE (AUTOMATED)2022-06-07 17:04:52 Test Item Value Reference Range Interpretation Comments POCT GLU (test code = 2785173233) 148 mg/dL 70-110 H Lab Interpretation (test code = Abnormal 61490-4) [facility] [id number] 14:34:22 Test Item Value Reference Range Interpretation Comments NT-proBNP (test code = 896 pg/mL <=125 H 9572281835) MARIE (test code = MARIE) Biotin has been reported to cause a negative bias, interpret results relative to patient's use of biotin. Lab Interpretation (test Abnormal code = 10209-7) [facility] NorthwestSEDIMENTATION [id number] 13:35:02 Test Item Value Reference Range Interpretation Comments ESR (test code = 59 See_Comment H [Automated message] 49086-5) The system DEXMA generated this result transmitted ref erence range: 0 - 20 m m/HR. The reference r hal was not used to interpret this result as normal/abnor mal. Lab Interpretation (test Abnormal code = 52511-2) [facility]ERRITIN [id number] 13:31:35 Test Item Value Reference Range Interpretation Comments FERRITIN (test code = 20.1 ng/mL 11.0-264.0 5553768248) MARIE (test code = MARIE) Biotin has been reported to cause a negative bias, interpret results relative to patient's use of biotin. Lab Interpretation (test Normal code = 20010-1) [facility] NorthwestTHYROID STIMULATING [id number] 13:27:12 Test Item Value Reference Range Interpretation Comments TSH (test code = 0.47 See_Comment [Automated message] 9723514084) The system DEXMA generated this result transmitted ref erence range: 0.45 - 4 .70 mIU/L. The refe rence range was not u sed to interpret this result as normal/abnor mal. Lab Interpretation (test Normal code = 31794-7) [facility] NorthwestIRON [id number] 13:11:55 Test Item Value Reference Range Interpretation Comments IRON (test code = 6989165959) 33 ug/dL 50-160 L TIBC (test code = 3985750993) 424 ug/dL 250-410 H % FE SAT (test code = 6660574558) 8 % 20-50 L Lab Interpretation (test code = Abnormal 31558-6) [facility] NorthwestLACTATE [id number] 13:03:55 Test Item Value Reference Range Interpretation Comments LDH (test code = 8702418883) 221 U/L 120-246 Lab Interpretation (test code = Normal 88323-9) [facility] NorthwestLIPID PANEL (57152)(TOTAL CHOLESTEROL, TRIGLYCERIDES, HDL)2022-06-07 13:02:54 Test Item Value Reference Range Interpretation Comments CHOL (test code = 2963101997) 127 mg/dL 120-200 HDL (test code = 7678682051) 64 mg/dL >=50 HDLC RATIO (test code = 0306599028) 2.0 <=4.5 TRIG (test code = 3785710718) 179 mg/dL 30-170 H LDL CHOL (test code = 90210-2) 27 mg/dL <=160 VLDL (test code = 4973188170) 36 mg/dL 5-60 Lab Interpretation (test code = Abnormal 06837-2) [facility]COMP. METABOLIC PANEL (65609)2022-06-07 13:02:43 Test Item Value Reference Range Interpretation Comments NA (test code = 137 mmol/L 135-145 1535688015) K (test code = 4.3 mmol/L 3.5-5.0 3868889254) CL (test code = 98 mmol/L 98-108 7937701057) CO2 TOTAL (test code = 25 mmol/L 23-31 2821177029) AGAP (test code = 14 2-16 2320009997) BUN (test code = 28 mg/dL 7-23 H 1912324168) GLUCOSE (test code = 238 mg/dL 70-110 H 9949198165) CREATININE (test code = 1.26 mg/dL 0.50-1.04 H 4091089975) TOTAL BILI (test code = 0.8 mg/dL 0.1-1.4 3610343540) CALCIUM (test code = 8.8 mg/dL 8.6-10.6 0719532068) T PROTEIN (test code = 7.2 g/dL 6.3-8.2 5459004297) ALBUMIN (test code = 3.9 g/dL 3.5-5.0 9138244584) ALK PHOS (test code = 83 U/L 34-122 2485949477) ALTv (test code = 26 U/L 5-35 1742-6) AST(SGOT) (test code = 24 U/L 13-40 4882597267) eGFR (test code = 42.4 mL/min/1.73m2 4617349467) MARIE (test code = MARIE) Association of Glomerular Filtration Rate (GFR) and Staging of Kidney Disease* + --+ --+ ------+| GFR (mL/min/1.73 m2) ?| With Kidney Damage ?| ?Without Kidney Damage+ --------+ --------+ +| ?>90 ?| ?Stage one ?| ? Normal ?+ ---+ ---+ -------+| ?60-89 ?| ?Stage two ?| ? Decreased GFR ? + --+ --+ ------+| ?30-59 ?| ?Stage three ?| ? Stage three ? + --+ --+ ------+| ?15-29 ?| ?Stage four ? | ? Stage four ?+ ---+ ---+ -------+| ?<15 (or dialysis) ? ?| ?Stage five ? | ? Stage five ?+ ---+ ---+ -------+ *Each stage assumes the associated GFR level has been in effect for at least three months. ?Stages 1 to 5, with or without kidney disease, indicate chronic kidney disease. Notes: Determination of stages one and two (with eGFR >59mL/min/1.73 m2) requires estimation of kidney damage for at least three months as defined by structural or functional abnormalities of the kidney, manifested by either:Pathological abnormalities or Markers of kidney damage (including abnormalities in the composition of the blood or urine or abnormalities in imaging tests). Lab Interpretation Abnormal (test code = 43861-7) [facility] NorthwestCREATINE [id number] 13:01:53 Test Item Value Reference Range Interpretation Comments CK (test code = 3820599711) 83 U/L 33-194 Lab Interpretation (test code = Normal 89046-4) [facility] NorthwestURIC [id number] 13:01:53 Test Item Value Reference Range Interpretation Comments URIC ACID (test code = 7459139720) 5.6 mg/dL 2.9-6.0 Lab Interpretation (test code = Normal 66406-9) [facility] WITH [id number] 12:43:11 Test Item Value Reference Range Interpretation Comments WBC (test code = 9.02 See_Comment [Automated 4415-2) message] The sy stem which generated this result transmitted reference range : 4.30 - 11.10 10*3/?L. The reference range was not used to interpret this result as normal/abnormal . RBC (test code = 4.82 See_Comment [Automated 362-7) message] The sy stem which generated this result transmitted reference range : 3.93 - 5.25 10*6/?L. The reference range was not used to interpret this result as normal/abnormal . HGB (test code = 11.0 g/dL 11.6-15.0 L 718-7) HCT (test code = 35.7 % 35.7-45.2 4544-3) MCV (test code = 74.1 fL 80.6-95.5 L 787-2) MCH (test code = 22.8 pg 25.9-32.8 L 785-6) MCHC (test code = 30.8 g/dL 31.6-35.1 L 786-4) RDW-SD (test code = 44.2 fL 39.0-49.9 50069-8) RDW-CV (test code = 16.6 % 12.0-15.5 H 788-0) PLT (test code = 265 See_Comment [Automated 777-3) message] The sy stem which generated this result transmitted reference range : 166 - 358 10*3/ ?L. The reference r hal was not used to interpret this result as normal/abnormal . MPV (test code = 11.3 fL 9.5-12.9 76996-5) NRBC/100 WBC (test 0.0 See_Comment [Automat ed code = 3648611603) message] The system which generated this result transmitted reference range : 0.0 - 10.0 /100 WBCs. The refer ence range was not u sed to interpret th is result as normal/abnormal . NRBC x10^3 (test code See_Comment [Auto mated = 8390563111) message] The s ystem which generated this result transmitted reference range : 10*3/?L. The reference range was not used to interpret this result as normal/abnormal . GRAN MAT (NEUT) % 66.9 % (test code = 770-8) IMM GRAN % (test code 0.40 % = 0507890722) LYMPH % (test code = 23.5 % 736-9) MONO % (test code = 8.2 % 5905-5) EOS % (test code = 0.8 % 713-8) BASO % (test code = 0.2 % 706-2) GRAN MAT x10^3(ANC) 6.03 10*3/uL 1.88-7.09 (test code = 0751410540) IMM GRAN x10^3 (test 0.04 10*3/uL 0.00-0.06 code = 4365006685) LYMPH x10^3 (test code 2.12 10*3/uL 1.32-3.29 = 731-0) MONO x10^3 (test code 0.74 10*3/uL 0.33-0.92 = 742-7) EOS x10^3 (test code = 0.07 10*3/uL 0.03-0.39 711-2) BASO x10^3 (test code 0.01-0.07 = 704-7) Lab Interpretation Abnormal (test code = 29312-5) [facility] NorthwestProthrombin Time / [id number] 12:29:29 Test Item Value Reference Range Interpretation Comments PROTIME PATIENT (test 13.0 See_Comment [Auto mated message] code = 5964-2) The system [employer]OPTICA generated this result transmitted ref erence range: 12.0 - 1 4.7 Seconds. The re ference range was not u sed to interpret this result as normal/abnor mal. INR (test code = 6301-6) 1.0 Nor mal INR <1.1; Warfarin Therap eutic range 2.0 to 3. 0 or 2.5 to 3.5, dep ending upon the indica tions. Lab Interpretation (test Normal code = 72311-6) [facility] GLUCOSE (AUTOMATED)2022-06-07 08:34:01 Test Item Value Reference Range Interpretation Comments POCT GLU (test code = 0359783791) 287 mg/dL 70-110 H Lab Interpretation (test code = Abnormal 48036-4) [facility] GLUCOSE (AUTOMATED)2022-06-07 03:09:09 Test Item Value Reference Range Interpretation Comments POCT GLU (test code = 5874539908) 191 mg/dL 70-110 H Lab Interpretation (test code = Abnormal 01889-3) [facility] MOLECULAR [id number] 19:42:00 Test Item Value Reference Range Interpretation Comments POCT Molecular FluA (test code = Negative Negative 91883-7) POCT Molecular FluB (test code = Negative Negative 48222-2) Lab Interpretation (test code = Normal 58123-5) [facility] MOLECULAR [id number] 19:36:40 Test Item Value Reference Range Interpretation Comments POCT Molecular Strep (test code = Negative Negative 07732-1) Lab Interpretation (test code = Normal 25969-5) [facility] SARS-COV-2 ANTIGEN (BINAX NOW)2022-06-01 19:36:00 Test Item Value Reference Range Interpretation Comments POCT SARS-COV-2 ANTIGEN (test code = Positive Not Detected A 25069-5) On board controls acceptable with C Yes Line (test code = 3574) Lab Interpretation (test code = Abnormal 27008-2) [facility] MOLECULAR [id number] 14:58:03 Test Item Value Reference Range Interpretation Comments POCT Molecular FluA (test code = Negative Negative 06769-8) POCT Molecular FluB (test code = Negative Negative 78021-5) Lab Interpretation (test code = Normal 53560-3) [facility] MOLECULAR [id number] 14:51:54 Test Item Value Reference Range Interpretation Comments POCT Molecular Strep (test code = Negative Negative 28049-6) Lab Interpretation (test code = Normal 73159-1) [facility] SARS-COV-2 ANTIGEN (BINAX NOW)2022-02-05 19:36:00 Test Item Value Reference Range Interpretation Comments POCT SARS-COV-2 ANTIGEN (test Not Detected Not Detected code = 28121-9) On board controls acceptable Yes with C Line (test code = 3574) [facility] MOLECULAR [id number] 19:27:20 Test Item Value Reference Range Interpretation Comments POCT Molecular FluA (test code = Negative Negative 69288-7) POCT Molecular FluB (test code = Negative Negative 68076-6) Lab Interpretation (test code = Normal 62669-4) [facility] MOLECULAR [id number] 19:16:44 Test Item Value Reference Range Interpretation Comments POCT Molecular Strep (test code = Positive Negative A 38419-3) Lab Interpretation (test code = Abnormal 63079-7) [facility] METABOLIC PANEL (73006)2021-11-27 04:07:20 Test Item Value Reference Range Interpretation Comments NA (test code = 138 mmol/L 135-145 9550917464) K (test code = 4.7 mmol/L 3.5-5 7540721911) CL (test code = 101 mmol/L 98-108 9379188105) CO2 TOTAL (test code = 30 mmol/L 23-31 3496926512) AGAP (test code = 2-16 6932121175) BUN (test code = 20 mg/dL 7-23 8907371701) GLUCOSE (test code = 162 mg/dL 70-110 H 6765742151) CREATININE (test code = 0.92 mg/dL 0.5-1.04 2452504453) TOTAL BILI (test code = 0.4 mg/dL 0.1-1.6 9072118172) CALCIUM (test code = 9.4 mg/dL 8.6-10.6 6631555879) T PROTEIN (test code = 6.8 g/dL 6.3-8.2 8862836815) ALBUMIN (test code = 4.0 g/dL 3.5-5 5939760124) ALK PHOS (test code = 86 U/L 34-122 8874488766) ALTv (test code = 23 U/L 5-35 1742-6) AST(SGOT) (test code = 27 U/L 13-40 6382533748) eGFR (test code = mL/min/1.73m2 6892821604) MARIE (test code = MARIE) Association of Glomerular Filtration Rate (GFR) and Staging of Kidney Disease* + --+ --+ ------+| GFR (mL/min/1.73 m2) ?| With Kidney Damage ?| ?Without Kidney Damage+ --------+ --------+ +| ?>90 ?| ?Stage one ?| ? Normal ?+ ---+ ---+ -------+| ?60-89 ?| ?Stage two ?| ? Decreased GFR ? + --+ --+ ------+| ?30-59 ?| ?Stage three ?| ? Stage three ? + --+ --+ ------+| ?15-29 ?| ?Stage four ? | ? Stage four ?+ ---+ ---+ -------+| ?<15 (or dialysis) ? ?| ?Stage five ? | ? Stage five ?+ ---+ ---+ -------+ *Each stage assumes the associated GFR level has been in effect for at least three months. ?Stages 1 to 5, with or without kidney disease, indicate chronic kidney disease. Notes: Determination of stages one and two (with eGFR >59mL/min/1.73 m2) requires estimation of kidney damage for at least three months as defined by structural or functional abnormalities of the kidney, manifested by either:Pathological abnormalities or Markers of kidney damage (including abnormalities in the composition of the blood or urine or abnormalities in imaging tests). Lab Interpretation Abnormal (test code = 74557-8) [facility]. METABOLIC PANEL (19445)2021-11-27 04:07:20 Test Item Value Reference Range Interpretation Comments NA (test code = 138 mmol/L 135-145 4407910237) K (test code = 4.7 mmol/L 3.5-5.0 8824821756) CL (test code = 101 mmol/L 98-108 0924475827) CO2 TOTAL (test code = 30 mmol/L 23-31 1534321996) AGAP (test code = 2-16 1135115433) BUN (test code = 20 mg/dL 7-23 4667166644) GLUCOSE (test code = 162 mg/dL 70-110 H 2095550974) CREATININE (test code = 0.92 mg/dL 0.50-1.04 9061376069) TOTAL BILI (test code = 0.4 mg/dL 0.1-1.4 1477514597) CALCIUM (test code = 9.4 mg/dL 8.6-10.6 0179283147) T PROTEIN (test code = 6.8 g/dL 6.3-8.2 2442491147) ALBUMIN (test code = 4.0 g/dL 3.5-5.0 6414637748) ALK PHOS (test code = 86 U/L 34-122 4669424484) ALTv (test code = 23 U/L 5-35 1742-6) AST(SGOT) (test code = 27 U/L 13-40 8066917691) eGFR (test code = mL/min/1.73m2 8746354810) MARIE (test code = MARIE) Association of Glomerular Filtration Rate (GFR) and Staging of Kidney Disease* + --+ --+ ------+| GFR (mL/min/1.73 m2) ?| With Kidney Damage ?| ?Without Kidney Damage+ --------+ --------+ +| ?>90 ?| ?Stage one ?| ? Normal ?+ ---+ ---+ -------+| ?60-89 ?| ?Stage two ?| ? Decreased GFR ? + --+ --+ ------+| ?30-59 ?| ?Stage three ?| ? Stage three ? + --+ --+ ------+| ?15-29 ?| ?Stage four ? | ? Stage four ?+ ---+ ---+ -------+| ?<15 (or dialysis) ? ?| ?Stage five ? | ? Stage five ?+ ---+ ---+ -------+ *Each stage assumes the associated GFR level has been in effect for at least three months. ?Stages 1 to 5, with or without kidney disease, indicate chronic kidney disease. Notes: Determination of stages one and two (with eGFR >59mL/min/1.73 m2) requires estimation of kidney damage for at least three months as defined by structural or functional abnormalities of the kidney, manifested by either:Pathological abnormalities or Markers of kidney damage (including abnormalities in the composition of the blood or urine or abnormalities in imaging tests). 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 Specimen: ?Stool - Rectum structure (body structure) Test ResultNegative CommentsNEGATIVE TEST RESULT. A negative Cologuard result indicates a low likelihood that a colorectal cancer (CRC) or advanced adenoma (adenomatous polyps with more advanced pre-malignant features) ?is present. The chance that a person with a negative Cologuard test has a colorectal cancer is less than 1 in 1500 (negative predictive value >99.9%) or has an ?advanced adenoma is less than ?5.3% (negative predictive value 94.7%). These data are based on a prospective cross-sectional study of 10,000 individuals at average risk for colorectal cancer who were screened with both Cologuard and colonoscopy. (Holland Rivera al, N Engl J Med 2014;370(14):3551-2258) The normal value (reference range) for this assay is negative. COLOGUARD RE-SCREENING RECOMMENDATION: Periodic colorectal cancer screening is an important part of preventive healthcare for asymptomatic individuals at average risk for colorectal cancer. ?Following a negative Cologuard result, the [employer] and U.S. Multi-Society Task Force?screening guidelines recommend a Cologuard re-screening interval of 3 years. References: [employer] Guideline for Colorectal Cancer Screening: https://www.cancer.org/ cancer/tnnee-kaeexb-vth cer/detection-diagnosis -staging/acs-recommenda tions.html.; Alexsander DK, Hector TREJO, Vidhya PaezK, Colorectal Cancer Screening: Recommendations for Physicians and Patients from the U.S. Multi-Society Task Force on Colorectal Cancer Screening , Am J Gastroenterology 2017; 112:1574-3405. TEST DESCRIPTION: Composite algorithmic analysis of stool DNA-biomarkers with hemoglobin immunoassay. ? Quantitative values of individual biomarkers are not reportable and are not associated with individual biomarker result reference ranges. Cologuard is intended for colorectal cancer screening of adults of either sex, 45 years or older, who are at average-risk for colorectal cancer (CRC). Cologuard has been approved for use by the U.S. FDA. The performance of Cologuard was established in a cross sectional study of average-risk adults aged 50-84. Cologuard performance in patients ages 45 to 49 years was estimated by sub-group analysis of near-age groups. Colonoscopies performed for a positive result may find as the most clinically significant lesion: colorectal cancer [4.0%], advanced adenoma (including sessile serrated polyps greater than or equal to 1cm diameter) [20%] or non- advanced adenoma [31%]; or no colorectal neoplasia [45%]. These estimates are derived from a prospective cross-sectional screening study of 10,000 individuals at average risk for colorectal cancer who were screened with both Cologuard and colonoscopy. (Holland Rivera al, N Engl J Med 2014;370(14):1610-9141. ) Cologuard may produce a false negative or false positive result (no colorectal cancer or?precancerous polyp present at colonoscopy follow up). A negative Cologuard test result does not guarantee the absence of CRC or advanced adenoma (pre-cancer). The current Cologuard screening interval is every 3 years. ([employer] and U.S. Multi-Society Task Force). Cologuard performance data in a 10,000 patient pivotal study using colonoscopy as the reference method can be accessed at the following location: www.[employer]/resul ts. Additional description of the Cologuard test process, warnings and precautions can be found at www.[employer]. Resulting Agency [facility] (CLIA #:[id number]) Specimen Collected: 07/13/21 07:15 Last Resulted: 07/18/21 02:59 Received From: [facility] Result Received: 07/26/21 08:09 Lab Interpretation Normal (test code = 21315-9) [facility]
--- NOTE | 2022-08-28 12:50 | RAD REPORT ---
EXAM DESCRIPTION: RADChest Single View08/28/2022 12:21 pm CLINICAL HISTORY: Abdominal distention;Pain COMPARISON: Chest Pa And Lat (2 Views) dated 01/29/2021; Chest Single View dated 05/26/2020; Chest Si ngle View dated 09/01/2019; Chest Single View dated 06/29/2018 TECHNIQUE: Portable AP view of the chest. FINDINGS: The lungs are clear. No pneumothorax or effusion. The cardiomediastinal contours are uncha nged, with tortuosity of the thoracic aorta again seen. IMPRESSION: No acute cardiopulmonary process.
[2022-08-28] MEDS ORDERED: ONDANSETRON 4 MG/2 ML VIAL ONE (12:59)
[2022-08-28] MEDS ORDERED: NA CHLORIDE 0.9% 1,000 ML ONE (12:59)
[2022-08-28] MEDS ORDERED: FAMOTIDINE 20 MG/2 ML VIAL IV ONE (12:59)
[2022-08-28 13:11] LABS: Absolute Lymphocytes (CBC) 2.4 K/uL (0.7-4.9); Hematocrit 39.9 % (36.0-45.0); Lymphocytes % 22.4 % (15.3-44.8); MPV 9.2 fL (7.6-11.3); RBC Red Blood Cell Count 5.32 M/uL (3.86-4.86)
[2022-08-28 13:24] LABS: Albumin 3.3 g/dL (3.4-5.0); Bilirubin Direct 0.2 mg/dL (0-0.2); Bilirubin Indirect, Calculated 0.3 mg/dL (0.2-0.8); Bilirubin Total 0.5 mg/dL (0.2-1.0); Magnesium 1.6 mg/dL (1.6-2.4); Potassium 4.3 mEq/L (3.5-5.1); Protein, Total 7.7 g/dL (6.4-8.2); Troponin High Sensitivity 4.7 pg/mL (<58.9)
--- NOTE | 2022-08-28 13:28 | RAD REPORT ---
EXAM DESCRIPTION: CT - Abdomen Pelvis W Contrast - 08/28/2022 12:59 pm CLINICAL HISTORY: ABD PAIN COMPARISON: Abdomen Pelvis W Contrast dated 01/21/2022; Abdomen Pelvis W Contrast dated 08/16/2020 TECHNIQUE: Thin cut axial CT imaging of the abdomen and pelvis was performed following intravenous a dministration of 100 mL Isovue 300. Multiplanar reformats were generated and reviewed. All CT scans are performed using dose optimization technique as appropriate and may include automated exposure control or mA/KV adjustment according to patient size. FINDINGS: No suspicious findings in the lung bases. The liver, spleen, and pancreas show no suspicious findings. Gallbladder was surgically removed. No e vidence of intra or extrahepatic biliary ductal dilation. Symmetric renal function is seen with no hydronephrosis or suspicious renal mass. No dilated bowel loops. Inflammatory changes along the mid descending colon, with focal wall thickeni ng and mucosal hyperenhancement around an inflamed diverticula. There is moderate burden of colonic d iverticulosis. Minimal fluid tracking along the left paracolic gutter. No evidence of discrete fluid collections or free air. Right hernia containing fat. No suspicious mass or bulky lymphadenopathy. Th e urinary bladder is without significant finding. Bilateral calcified lesions along both ovaries. No suspicious bony findings. IMPRESSION: Findings of acute uncomplicated diverticulitis descending colon. The findings were communicated to Sandy Melendez, ER nurse, to be communicated to Dr Canales, on 08/12 at 13:24 hours.
[2022-08-28] MEDS ORDERED: CEFTRIAXONE 2000 MG/VIAL ONE (13:37)
[2022-08-28] MEDS ORDERED: NA CHLORIDE 0.9% 100 ML ONE (13:37)
[2022-08-28] MEDS ORDERED: CIPROFLOXACIN 400mg IV 400 MG/200 ML BAG IV ONE (13:37)
[2022-08-28] MEDS ORDERED: CLINDAMYCIN 900MG/D5W 900 MG/50 ML IVPB IV ONE (13:37)
[2022-08-28 13:39] LABS: Protime INR 0.94
[2022-08-28 13:54] LABS: Anisocytosis 1+; Blood Morphology Comment NOTED (NOT SEEN); Platelet Estimate ADEQ; White Blood Cell Scan OK (OK)
[2022-08-28] MEDS ORDERED: MAGNESIUM SULFATE 1 gm IVPB 1 GM/100 ML BAG IV ONE (14:36)
[2022-08-28] MEDS ORDERED: FENTANYL CITR 100 MCG/2 ML ONE (14:36)
--- NOTE | 2022-08-28 14:37 | EDPHYS ---
Physician Documentation [facility] Name: Amy Montalvo Age: 66 yrs Sex: Female : 1955 Arrival Date: 08/28/2022 Time: 11:16 Bed 6 Private MD: RAZ ROCHA ED Physician Akira Canales HPI: 08/28 14:22 This 66 yrs old Black Female presents to ER via Ambulatory with complaints of Abdominal starr Pain, Nausea. 14:22 The patient presents to the emergency department with nausea, vomiting, abdominal pain, starr of the epigastric area, left upper quadrant, right lower quadrant and left lower quadrant. Onset: The symptoms/episode began/occurred 2 day(s) ago. Historical: - Allergies: 11:45 Demerol; nj1 11:45 Dilaudid; nj1 11:45 Flagyl; nj1 11:45 Lisinopril; nj1 11:45 PENICILLINS; nj1 - PMHx: 11:45 Diabetes - NIDDM; Diverticulitis; Hyperlipidemia; Hypertension; Sleep Apnea; nj1 - PSHx: 11:45 section; Bowel resection; nj1 - Immunization history:: Client reports receiving the 2nd dose of the Covid vaccine. - Social history:: Smoking status: Patient/guardian denies using tobacco, but has a distant history of tobacco abuse. ROS: 14:26 Constitutional: Negative for fever, chills, and weight loss, Eyes: Negative for injury, starr pain, redness, and discharge, ENT: Negative for injury, pain, and discharge, Neck: Negative for injury, pain, and swelling, Respiratory: Negative for shortness of breath, cough, wheezing, and pleuritic chest pain, Back: Negative for injury and pain, : Negative for injury, bleeding, discharge, and swelling, MS/Extremity: Negative for injury and deformity, Skin: Negative for injury, rash, and discoloration, Neuro: Negative for headache, weakness, numbness, tingling, and seizure. 14:26 Cardiovascular: Positive for chest pain. 14:26 Abdomen/GI: Positive for abdominal pain, nausea, of the epigastric area, right upper quadrant, left upper quadrant and left lower quadrant. Exam: 14:26 Constitutional: This is a well developed, well nourished patient who is awake, alert, starr and in no acute distress. Head/Face: Normocephalic, atraumatic. Eyes: Pupils equal round and reactive to light, extra-ocular motions intact. Lids and lashes normal. Conjunctiva and sclera are non-icteric and not injected. Cornea within normal limits. Periorbital areas with no swelling, redness, or edema. ENT: Nares patent. No nasal discharge, no septal abnormalities noted. Tympanic membranes are normal and external auditory canals are clear. Oropharynx with no redness, swelling, or masses, exudates, or evidence of obstruction, uvula midline. Mucous membranes moist. Neck: Trachea midline, no thyromegaly or masses palpated, and no cervical lymphadenopathy. Supple, full range of motion without nuchal rigidity, or vertebral point tenderness. No Meningismus. Chest/axilla: Normal chest wall appearance and motion. Nontender with no deformity. No lesions are appreciated. Respiratory: Lungs have equal breath sounds bilaterally, clear to auscultation and percussion. No rales, rhonchi or wheezes noted. No increased work of breathing, no retractions or nasal flaring. Back: No spinal tenderness. No costovertebral tenderness. Full range of motion. Female : Normal external genitalia. Skin: Warm, dry with normal turgor. Normal color with no rashes, no lesions, and no evidence of cellulitis. MS/ Extremity: Pulses equal, no cyanosis. Neurovascular intact. Full, normal range of motion. Neuro: Awake and alert, GCS 15, oriented to person, place, time, and situation. Cranial nerves II-XII grossly intact. Motor strength 5/5 in all extremities. Sensory grossly intact. Cerebellar exam normal. Normal gait. Psych: Awake, alert, with orientation to person, place and time. Behavior, mood, and affect are within normal limits. 14:26 Cardiovascular: Rate: normal, actual rate is 92 bpm, Rhythm: regular, Pulses: Pulses are 4+ in bilateral radial, brachial, femoral, popliteal, posterior tibial and and dorsalis pedis arteries.. 14:26 ECG was reviewed by the Attending Physician. 14:26 Abdomen/GI: Inspection: distension, that is mild, Bowel sounds: normal, Palpation: moderate abdominal tenderness, in the right upper quadrant, left upper quadrant and left lower quadrant, Liver: no appreciated palpable abnormalities, Hernia: not appreciated. Vital Signs: 11:40 BP 132 / 96; Pulse 94; Resp 16; Temp 98.1(TE); Pulse Ox 96% on R/A; Weight 85.28 kg; nj1 Height 5 ft. 7 in. ; Pain 9/10; 16:00 BP 139 / 90; Pulse 100; Resp 18; Pulse Ox 97% on R/A; Pain 7/10; ll1 17:00 BP 139 / 96; Pulse 90; Resp 18; ll1 18:30 BP 151 / 79; Pulse 101; Resp 18; Pulse Ox 96% ; ll1 11:40 Body Mass Index 29.45 (85.28 kg, 170.18 cm) nj1 11:40 Pain Scale: Adult nj1 16:00 Pain Scale: Adult ll1 MDM: 11:20 Patient medically screened. [facility] 14:29 Differential diagnosis: Nonspecific abd pain, gastritis, pancreatitis, diverticulitis, starr viral gastroenteritis, gastroenteritis. Data reviewed: vital signs, nurses notes, lab test result(s), EKG, radiologic studies, CT scan, plain films. Consideration of Admission/Observation Patient was admitted/placed on observation. Escalation of care including admission/observation considered. I considered the following discharge prescriptions or medication management in the emergency department Medications were administered in the Emergency Department. See MAR. Independent interpretation of the following test(s) in the Emergency Department EKG: See my EKG interpretation above. Test considered but Not performed: CT: no ct chest. Historians other than the Patient: none. Care significantly affected by the following chronic conditions: Diabetes, Hypertension, diverticulitis, sleep apnea, hyperlipidemia. Counseling: I had a detailed discussion with the patient and/or guardian regarding: the historical points, exam findings, and any diagnostic results supporting the discharge/admit diagnosis, the presence of at least one elevated blood pressure reading (>120/80) during this emergency department visit, lab results, radiology results, the need for further work-up and treatment in the hospital. 08/28 11:22 Order name: Basic Metabolic Panel; Complete Time: 13:58 [facility] 08/28 11:22 Order name: CBC with Diff; Complete Time: 13:58 [facility] 08/28 11:22 Order name: LFT's; Complete Time: 13:58 [facility] 08/28 11:22 Order name: Magnesium; Complete Time: 13:58 [facility] 08/28 11:22 Order name: NT PRO-BNP; Complete Time: 13:58 [facility] 08/28 11:22 Order name: PT-INR; Complete Time: 13:58 [facility] 08/28 11:22 Order name: Troponin HS; Complete Time: 13:58 [facility] 08/28 11:22 Order name: Lipase; Complete Time: 13:58 [facility] 08/28 11:22 Order name: Urinalysis w/ reflexes; Complete Time: 19:40 [facility] 08/28 13:14 Order name: CBC Smear Scan; Complete Time: 13:58 [facility] 08/28 14:06 Order name: CREATININE WHOLE BLOOD; Complete Time: 14:20 [facility] 08/28 16:33 Order name: Magnesium [facility] 08/28 16:33 Order name: Phosphorus [facility] 08/28 16:33 Order name: Urinalysis w/ reflexes [facility] 08/28 16:33 Order name: Basic Metabolic Panel [facility] 08/28 16:33 Order name: Basic Metabolic Panel [facility] 08/28 16:33 Order name: CBC with Automated Diff [facility] 08/28 16:33 Order name: CBC with Automated Diff [facility] 08/28 16:33 Order name: Lipid Profile [facility] 08/28 16:33 Order name: Lipid Profile [facility] 08/28 11:22 Order name: XRAY Chest (1 view); Complete Time: 13:58 [facility] 08/28 11:22 Order name: CT Abd/Pelvis - IV Contrast Only; Complete Time: 13:58 [facility] 08/28 11:22 Order name: EKG; Complete Time: 11:23 [facility] 08/28 16:36 Order name: 60g Consistent Carbohydrate (ADA 1800/1999) [facility] 08/28 11:22 Order name: Cardiac monitoring; Complete Time: 13:35 [facility] 08/28 11:22 Order name: EKG - Nurse/Tech; Complete Time: 13:35 [facility] 08/28 11:22 Order name: IV Saline Lock; Complete Time: 12:51 [facility] 08/28 11:22 Order name: Labs collected and sent; Complete Time: 12:51 [facility] 08/28 11:22 Order name: O2 Per Protocol; Complete Time: 12:23 [facility] 08/28 11:22 Order name: O2 Sat Monitoring; Complete Time: 12:23 [facility] 08/28 13:07 Order name: Labs - recollect needed: recollect blue top, fill to the top; Complete bd Time: 13:29 EC:26 Rate is 92 beats/min. Rhythm is regular. QRS [place] is Normal. [place] interval is normal. QRS starr interval is normal. QT interval is normal. No Q waves. T waves are Normal. No ST changes noted. Interpreted by me. Reviewed by me. Administered Medications: 13:12 Drug: NS 0.9% IV 1000 ml Route: IV; Rate: 1 bolus; Site: left antecubital; [facility] 13:49 Follow up: Response: No adverse reaction; IV Status: Completed infusion; IV Intake: ll1 700ml 13:12 Drug: Ondansetron IVP 4 mg Route: IVP; Site: left antecubital; [facility] 13:48 Follow up: Response: No adverse reaction [facility] 13:12 Drug: Famotidine IVP 20 mg Route: IVP; Site: left antecubital; [facility] 13:48 Follow up: Response: No adverse reaction [facility] 13:48 Drug: Rocephin IV 2 grams Route: IV; Rate: per protocol; Site: left antecubital; [facility] 14:35 Follow up: IV Status: Completed infusion [facility] 14:42 Drug: Clindamycin IVPB 900 mg Route: IVPB; Infused Over: 30 mins; Site: left forearm; aa5 15:05 Follow up: Response: No adverse reaction; IV Status: Completed infusion; IV Intake: [id number] 14:42 Drug: fentaNYL (PF) IVP 25 mcg {Note: pain 8/10, RASS 0.} Route: IVP; Site: left aa5 femoral; 15:05 Follow up: Response: No adverse reaction; Pain is decreased; RASS: Alert and Calm (0) [facility] 15:05 Drug: Ciprofloxacin IVPB 400 mg Volume: 200 ml; Route: IVPB; Infused Over: 60 mins; ll1 Site: left forearm; 15:59 Follow up: Response: No adverse reaction; IV Status: Completed infusion; IV Intake: ll1 100ml 16:00 Drug: Magnesium Sulfate IVPB 1 grams Route: IVPB; Infused Over: 1 hrs; Site: left ll1 antecubital; 16:20 Not Given (Patient Refused): fentaNYL (PF) IVP 25 mcg IVP once ll1 Disposition Summary: 08/28/22 14:36 Hospitalization Ordered Hospitalization Status: Observation starr Location: Telemetry/MedSurg (observation) starr Condition: Fair starr Problem: new starr Symptoms: have improved starr Bed/Room Type: Standard starr Provider: Devin Ho(08/28/22 14:39) starr Room Assignment: 221(08/28/22 18:51) dw Diagnosis - Chest pain, unspecified starr - Abdominal pain, Generalized starr - Diverticulitis of large intestine without perforation or abscess without bleeding starr - Essential (primary) hypertension starr - Type 2 diabetes mellitus with hyperglycemia starr Forms: - Medication Reconciliation Form starr - SBAR form starr Signatures: Dispatcher [employer] EDMS Melody Sandoval Diana RN RN dw Akira Canales MD MD cha Calderon, Audri RN RN aa5 Linda Mcintosh RN RN ll1 Myrtle Farris PA-C PANoris sb4 Gabriella Paige RN RN nj1 Corrections: (The following items were deleted from the chart) 14:39 14:36 Mohan Munoz cha starr 18:51 14:36 starr dw
--- NOTE | 2022-08-28 14:37 | ER ---
Nurse's Notes [facility] Name: Amy Montalvo Age: 66 yrs Sex: Female : 1955 Arrival Date: 08/28/2022 Time: 11:16 Bed 6 Private MD: RAZ ROCHA Diagnosis: Chest pain, unspecified;Abdominal pain, Generalized;Diverticulitis of large intestine without perforation or abscess without bleeding;Essential (primary) hypertension;Type 2 diabetes mellitus with hyperglycemia Presentation: 08/28 11:40 Chief complaint: Patient states: Abdominal pain for about 2 weeks, patient concerned it nj1 may be a hiatal hernia. Went to urgent care last about this problem, still hurting. Nauseous, able to eat and drink, denies diarrhea, no fever. Had endoscopy done about 1.5 months ago. Coronavirus screen: Vaccine status: Patient reports receiving the 2nd dose of the covid vaccine. Ebola Screen: Patient denies travel to an Ebola-affected area in the 21 days before illness onset. Initial Sepsis Screen: Does the patient meet any 2 criteria? HR > 90 bpm. No. Patient's initial sepsis screen is negative. Does the patient have a suspected source of infection? No. Patient's initial sepsis screen is negative. Risk Assessment: Do you want to hurt yourself or someone else? Patient reports no desire to harm self or others. Onset of symptoms was August 14, 2022. 11:40 Method Of Arrival: Ambulatory [facility] 11:40 Acuity: FARIDA 3 nj1 Historical: - Allergies: 11:45 Demerol; nj1 11:45 Dilaudid; nj1 11:45 Flagyl; nj1 11:45 Lisinopril; nj1 11:45 PENICILLINS; nj1 - PMHx: 11:45 Diabetes - NIDDM; Diverticulitis; Hyperlipidemia; Hypertension; Sleep Apnea; nj1 - PSHx: 11:45 section; Bowel resection; nj1 - Immunization history:: Client reports receiving the 2nd dose of the Covid vaccine. - Social history:: Smoking status: Patient/guardian denies using tobacco, but has a distant history of tobacco abuse. Screenin:13 [facility] ED Fall Risk Assessment (Adult) Score/Fall Risk Level 0 - 2 = Low Risk ll1 Oriented to surroundings, Maintained a safe environment, Educated pt \T\ family on fall prevention, incl call for assistance when getting out of bed, Hourly rounding (assess needs \T\ fall precautionary measures) done. Abuse screen: Denies threats or abuse. Nutritional screening: No deficits noted. Tuberculosis screening: No symptoms or risk factors identified. Assessment: 13:12 General: Appears uncomfortable, Behavior is calm, cooperative, appropriate for age. ll1 Pain: Complains of pain in abdomen Pain currently is 7 out of 10 on a pain scale. GI: Bowel sounds present X 4 quads. Abd is soft and non tender X 4 quads. Reports lower abdominal pain, upper abdominal pain, cramping, nausea. 13:41 Reassessment: No changes from previously documented assessment. Patient and/or family ll1 updated on plan of care and expected duration. Pain level reassessed. 15:10 Reassessment: No changes from previously documented assessment. Patient and/or family ll1 updated on plan of care and expected duration. Pain level reassessed. Patient is alert, oriented x 3, equal unlabored respirations, skin warm/dry/pink. 16:00 Reassessment: No changes from previously documented assessment. Patient and/or family ll1 updated on plan of care and expected duration. Pain level reassessed. Patient is alert, oriented x 3, equal unlabored respirations, skin warm/dry/pink. 16:43 Reassessment: No changes from previously documented assessment. Patient and/or family ll1 updated on plan of care and expected duration. Pain level reassessed. Patient is alert, oriented x 3, equal unlabored respirations, skin warm/dry/pink. 19:53 Reassessment: Patient appears in no apparent distress at this time. Patient and/or aa9 family updated on plan of care and expected duration. Pain level reassessed. Patient is alert, oriented x 3, equal unlabored respirations, skin warm/dry/pink. pt taken to assigned room with collision technician via hospital bed. Vital Signs: 11:40 BP 132 / 96; Pulse 94; Resp 16; Temp 98.1(TE); Pulse Ox 96% on R/A; Weight 85.28 kg; nj1 Height 5 ft. 7 in. ; Pain 9/10; 16:00 BP 139 / 90; Pulse 100; Resp 18; Pulse Ox 97% on R/A; Pain 7/10; ll1 17:00 BP 139 / 96; Pulse 90; Resp 18; ll1 18:30 BP 151 / 79; Pulse 101; Resp 18; Pulse Ox 96% ; ll1 11:40 Body Mass Index 29.45 (85.28 kg, 170.18 cm) nj1 11:40 Pain Scale: Adult nj1 16:00 Pain Scale: Adult ll1 ED Course: 11:20 Patient arrived in ED. am2 11:20 RAZ ROCHA is Private Physician. am2 11:20 Akira Canales MD is Attending Physician. starr 11:45 Triage completed. nj1 11:47 Arm band placed on right wrist. nj1 12:22 Linda Mcintosh, AGUEDA is Primary Nurse. ll1 12:23 XRAY Chest (1 view) In Process Unspecified. EDMS 12:44 Missed attempt(s): 22 gauge in right forearm. x 2. Bleeding controlled, band aid ll1 applied, catheter tip intact. 12:50 Inserted saline lock: 22 gauge in left forearm, using aseptic technique. Blood ll1 collected. 13:01 CT Abd/Pelvis - IV Contrast Only In Process Unspecified. EDMS 14:35 Mohan Muonz is Hospitalizing Provider. starr 14:39 Devin Ho MD is Hospitalizing Provider. starr 19:42 Patient has correct armband on for positive identification. Side rails up X2. Pulse ox aa9 on. NIBP on. Warm blanket given. 19:42 No provider procedures requiring assistance completed. Patient admitted, IV remains in aa9 place. Administered Medications: 13:12 Drug: NS 0.9% IV 1000 ml Route: IV; Rate: 1 bolus; Site: left antecubital; ll1 13:49 Follow up: Response: No adverse reaction; IV Status: Completed infusion; IV Intake: ll1 700ml 13:12 Drug: Ondansetron IVP 4 mg Route: IVP; Site: left antecubital; ll1 13:48 Follow up: Response: No adverse reaction ll1 13:12 Drug: Famotidine IVP 20 mg Route: IVP; Site: left antecubital; ll1 13:48 Follow up: Response: No adverse reaction ll1 13:48 Drug: Rocephin IV 2 grams Route: IV; Rate: per protocol; Site: left antecubital; ll1 14:35 Follow up: IV Status: Completed infusion ll1 14:42 Drug: Clindamycin IVPB 900 mg Route: IVPB; Infused Over: 30 mins; Site: left forearm; aa5 15:05 Follow up: Response: No adverse reaction; IV Status: Completed infusion; IV Intake: [id number] 14:42 Drug: fentaNYL (PF) IVP 25 mcg {Note: pain 8/10, RASS 0.} Route: IVP; Site: left aa5 femoral; 15:05 Follow up: Response: No adverse reaction; Pain is decreased; RASS: Alert and Calm (0) ll1 15:05 Drug: Ciprofloxacin IVPB 400 mg Volume: 200 ml; Route: IVPB; Infused Over: 60 mins; ll1 Site: left forearm; 15:59 Follow up: Response: No adverse reaction; IV Status: Completed infusion; IV Intake: ll1 100ml 16:00 Drug: Magnesium Sulfate IVPB 1 grams Route: IVPB; Infused Over: 1 hrs; Site: left ll1 antecubital; 16:20 Not Given (Patient Refused): fentaNYL (PF) IVP 25 mcg IVP once ll1 Medication: 13:13 VIS not applicable for this client. ll1 Intake: 13:49 IV: 700ml; Total: 700ml. ll1 15:05 IV: 50ml; Total: 750ml. ll1 15:59 IV: 100ml; Total: 850ml. ll1 Outcome: 14:36 Decision to Hospitalize by Provider. starr 19:42 Admitted to Med/surg accompanied by tech, room 221, with chart, Report called to Obey cunningham 19:42 Condition: stable 19:42 Instructed on the need for admit. 19:58 Patient left the ED. aa9 Signatures: Dispatcher [employer] EDMS Akira Canales MD MD cha Calderon, Audri, RN RN aa5 Rissa Salinas am2 Linda Mcintosh, RN RN ll1 Erendira Vigil RN RN aa9 Gabriella Paige, AGUEDA RN nj1 Corrections: (The following items were deleted from the chart) 11:47 11:40 BP 124 / 100; Pulse 94bpm; Resp 16bpm; Pulse Ox 96% RA; Temp 98.1F Temporal; nj1 85.28 kg; Height 5 ft. 7 in.; BMI: 29.4; Pain 9/10, Adult; nj1 15:51 13:48 Reassessment: [place] [id number]
[2022-08-28 15:00] LABS: Urine Bacteria None Seen /HPF (<20); Urine Bilirubin NEGATIVE (Negative); Urine Blood Negative (Negative); Urine Clarity Clear (Clear); Urine Color Light-Yellow (Yellow); Urine Glucose 4+ (Over) (Negative); Urine Mucus Slight /HPF (None Seen); Urine Protein TRACE (Negative); Urine RBC <5 /HPF (None Seen); Urine Urobilinogen Normal (Normal); Urine pH 6.5 (5.0-7.0)
[2022-08-28] MEDS ORDERED: ACETAMINOPHEN 325 MG TABLET PO PRN (16:20)
[2022-08-28] MEDS ORDERED: ONDANSETRON 4 MG/2 ML VIAL IV PRN (16:31)
[2022-08-28] MEDS ORDERED: GLUCAGON 1 MG/VIAL IM PRN (16:33)
[2022-08-28] MEDS ORDERED: D50W 25 GM/50 ML SYRINGE IV PRN (16:33)
--- NOTE | 2022-08-28 16:43 | P.HP ---
Certification for Inpatient Patient admitted to: Inpatient With expected LOS: >2 Midnights Patient will require the following post-hospital care: None Practitioner: I am a practitioner with admitting privileges, knowledge of patient current condition, hospital course, and medical plan of care. Services: Services provided to patient in accordance with Admission requirements found in Title 42 Section 412.3 of the Code of Federal Regulations Patient History Date of Service: 08/28/22 Reason for admission: Generalized abdominal pain History of Present Illness: Patient is a 66-year-old female with a past medical history significant for DM 2, diverticulitis, hyperlipidemia, hypertension, sleep apnea who presents with complaint of generalized abdominal pain that has been ongoing intermittently for the past 1 week. Patient rated pain as 9/10 in severity and described pain as aching in quality. Patient reported that abdominal pain became worse in the last 3 days. Patient also reports that chest pain is located in the left chest area onset yesterday. Patient rated pain as 10/10 in severity and described pain as pressure in quality. Patient reported associated signs and symptoms of headache, nausea and generalized malaise. Patient denies any other signs or symptoms. Symptoms are aggravated or relieved by nothing. Patient decided to present to the hospital due to worsening symptoms. Allergies hydromorphone HCl [From Dilaudid] Allergy (Mild, Verified 08/28/22 17:27) Shortness of breath Penicillins Allergy (Mild, Verified 08/28/22 17:27) delusion lisinopril Allergy (Unknown, Verified 08/28/22 17:27) Hives losartan Allergy (Verified 08/28/22 17:27) Hives metronidazole [From Flagyl] Allergy (Verified 08/28/22 17:27) Anaphylaxis Home Medications: Dulaglutide [Trulicity] 1.5 mg SQ EVERY 7TH DAY 06/30/18 Magnesium Oxide [Magnesium] 400 mg PO BID 06/30/18 Metformin ER [Glucophage ER*] 1,000 mg PO BID 06/30/18 Metoprolol Tartrate 50 mg PO BEDTIME 06/30/18 Rosuvastatin [Crestor*] 20 mg PO BEDTIME 06/30/18 Pantoprazole [Protonix Tab*] 40 mg PO DAILY #30 tab 08/29/19 Glipizide [Glipizide ER] 10 mg PO DAILY 01/29/21 Albuterol Inhaler [Ventolin Inhaler] 2 puff IH Q6H PRN 07/05/22 Ascorbic Acid [Vitamin C] 500 mg PO DAILY 07/05/22 Baclofen 5 mg PO PRN PRN 07/05/22 Cholecalciferol (Vitamin D3) [Vitamin D3] 1,250 mcg PO SEECOM 07/05/22 Dapagliflozin Propanediol [Farxiga] 10 mg PO DAILY 07/05/22 Furosemide [Lasix] 40 mg PO DAILY 07/05/22 Insulin Detemir [Levemir] 7 units SQ DAILY 07/05/22 Linaclotide [Linzess] 290 mcg PO DAILY 07/05/22 Potassium Chloride [K-Dur] 20 meq PO DAILY 07/05/22 Sennosides/Docusate Sodium [Senna-S 8.6-50 mg Tablet] 1 each PO DAILY 07/05/22 NIFEdipine [Nifedipine ER] 60 mg PO DAILY 07/09/22 - Past Medical/Surgical History Diabetic: Yes -: sleep apnea -: HTN -: Diverticulitis -: asthma -: COPD -: NIDDM -: hyperlipidemia -: bowel resection -: - Family History Father -: Hypertension, GI disease, Diabetes, Stroke Notes: d Mother -: Other (see notes) Notes: dementia Sister -: Lung disease, Cancer Brother -: Lung disease, Cancer - Social History Smoking Status: Former smoker Alcohol use: No CD- Drugs: No Caffeine use: Yes Place of Residence: Home Review of Systems General: Malaise Eyes: Unremarkable ENT: Unremarkable Respiratory: Unremarkable Cardiovascular: Chest Pain Gastrointestinal: Nausea, Abdominal Pain Genitourinary: Unremarkable Musculoskeletal: Unremarkable Integumentary: Unremarkable Neurological: Other (JUAREZ) Lymphatics: Unremarkable Physical Examination - Physical Exam General: Alert, In no apparent distress, Oriented x3, Cooperative HEENT: Atraumatic, PERRLA, Mucous membr. moist/pink, EOMI, Sclerae nonicteric Neck: Supple, 2+ carotid pulse no bruit, No LAD, Without JVD or thyroid abnormality Respiratory: Clear to auscultation bilaterally, Normal air movement Cardiovascular: No edema, Regular rate/rhythm, Normal S1 S2 Capillary refill: <2 Seconds Gastrointestinal: Normal bowel sounds, Distended, Tenderness Musculoskeletal: No clubbing, No swelling, No tenderness Integumentary: No rashes, No breakdown, No significant lesion Neurological: Normal speech, Normal strength at 5/5 x4 extr, Normal tone, Normal affect Lymphatics: No axilla or inguinal lymphadenopathy - Studies Laboratory Data (last 24 hrs) 08/28/22 13:25: PT 10.3, INR 0.94 08/28/22 12:48: WBC 10.80, Hgb 12.5, Hct 39.9, Plt Count 264 08/28/22 12:48: Sodium 137, Potassium 4.3, BUN 19 H, Creatinine 1.00, Glucose 145 H, Magnesium 1.6, Total Bilirubin 0.5, AST 18, ALT 21, Alkaline Phosphatase 84, Lipase 20 Assessment and Plan - Plan --Acute diverticulitis. Noted on CT imaging. Patient placed on antibiotics. Continue supportive care. --Chest pain. Likely atypical. Will trend troponin levels--currently negative. Telemetry to monitor for any significant arrhythmia. Echocardiogram pending to assess cardiac structures and functions. Continue supportive care. --Acute pain. We will manage pain with current pain medication regimen. --DM2. BS monitoring with sliding scale insulin. --Hypertension. Stable. Continue home medication. --Hyperlipidemia. Continue statin. --History of constipation. Continue home medication. --GERD. Continue Protonix. --COPD\asthma. Stable. Continue home medication. --Sleep apnea. Continue supportive care. --CKD 2. Stable. We will continue to monitor renal functions. --Class I obesity. Likely secondary to excess calories intake. Patient counseled on weight reduction, diet and exercise therapy. --DVT prophylaxis with Lovenox subQ Discharge Plan: Home Plan to discharge in: Greater than 2 days - Advance Directives Does patient have a Living Will: No Does patient have a Durable POA for Healthcare: No - Code Status/Comfort Care Code Status Assessed: Yes Physician Review: Patient Assessed, Agree with Above Assessment and Plan Critical Care: No
[2022-08-28] MEDS ORDERED: PIPER TAZO 3.375 GM in NA CHLORIDE 0.9% 100 ML IV SCH (17:00)
[2022-08-28 21:44] VITALS: BMI 29.4
[2022-08-28] MEDS: INSULIN -REGULAR HUMAN 50 UNIT/0.5 ML ML SQ SCH (21:49)
[2022-08-28 22:04] LABS: Magnesium 1.7 mg/dL (1.6-2.4); Phosphorus 3.6 mg/dL (2.5-4.9)
[2022-08-28] MEDS ORDERED: FENTANYL CITR 100 MCG/2 ML IV ONE (22:06)
[2022-08-29 03:05] LABS: Absolute Lymphocytes (CBC) 2.6 K/uL (0.7-4.9); Hematocrit 36.8 % (36.0-45.0); Lymphocytes % 29.3 % (15.3-44.8); MCV 74.9 fL (80-100); MPV 9.4 fL (7.6-11.3); RBC Red Blood Cell Count 4.91 M/uL (3.86-4.86)
[2022-08-29 03:26] LABS: Potassium 3.9 mEq/L (3.5-5.1)
[2022-08-29] MEDS ORDERED: MAGNESIUM SULFATE 1 gm IVPB 1 GM/100 ML BAG IV ONE (05:00)
[2022-08-29] MEDS ORDERED: POTASSIUM CL SA 10 MEQ TAB PO ONE (05:00)
--- NOTE | 2022-08-29 05:37 | EKG ---
Test Date: 2022-08-28 Test Time: 13:23:44 Rcis: BRIELLE MEASUREMENT RESULTS: Intervals: Rate: 93 NV: 172 QRSD: 88 QT: 376 QTc: 467 [place]: P: 55 NV: 172 QRS: 52 T: 43 INTERPRETIVE STATEMENTS: Normal sinus rhythm Normal ECG Compared to ECG 01/29/2021 14:01:02 No significant changes Electronically Signed On 08-29-22 05:36:36 CDT by Partha Walker
[2022-08-29] MEDS: INSULIN -REGULAR HUMAN 50 UNIT/0.5 ML ML SQ SCH ×4 (07:30→21:13)
[2022-08-29] MEDS ORDERED: MORPHINE 2 MG/ML SYR IV PRN (08:53)
[2022-08-29] MEDS ORDERED: Levofloxacin500mg IV 500 MG/100 ML BAG IV SCH (09:00)
[2022-08-29] MEDS: ENOXAPARIN 40 MG/0.4 ML SQ SCH (09:12)
[2022-08-29] MEDS: ASPIRIN 81 MG CHEWABLE TABLET PO SCH (09:12)
[2022-08-29] MEDS: HYDROCODONE/APAP 10/325 TAB PO PRN ×2 (10:49→21:56)
--- NOTE | 2022-08-29 11:23 | EKG ---
Test Date: 2022-08-28 Test Time: 13:25:21 Faucet Polisher: BRIELLE MEASUREMENT RESULTS: Intervals: Rate: 92 IL: 170 QRSD: 86 QT: 374 QTc: 462 [place]: P: 57 IL: 170 QRS: 51 T: 81 INTERPRETIVE STATEMENTS: Normal sinus rhythm Normal ECG Compared to ECG 08/28/2022 13:23:44 No significant changes Electronically Signed On 08-29-22 11:20:19 CDT by Partha Walker
[2022-08-29] MEDS ORDERED: ERTAPENEM SODIUM 1 GM VIAL IVPB SCH (13:00)
--- NOTE | 2022-08-29 13:12 | ECHO ---
HEIGHT: 5 ft 7 in WEIGHT: 188 lb 0 oz DATE OF STUDY: 08/29/[address]: Guerline Singer 2-DIMENSIONAL: YES M.MODE: YES DOPPLER: YES COLOR FLOW: YES TDS: NO PORTABLE: YES DEFINITY: NO BUBBLE STUDY: NO DIAGNOSIS: CHEST PAIN CARDIAC HISTORY: CATHERIZATION: NO SURGERY: NO PROSTHETIC VALVE: NO PACEMAKER: NO MEASUREMENTS (cm) DIASTOLIC (NORMALS) SYSTOLIC (NORMALS) IVSd 1.3 (0.6-1.2) LA Diam 2.7 (1.9-4.0) LVEF 61% LVIDd 4.6 (3.5-5.7) LVIDs 3.1 (2.0-3.5) %FS 33% LVPWd 1.3 (0.6-1.2) Ao Diam 2.7 (2.0-3.7) 2 DIMENSIONAL ASSESSMENT: RIGHT ATRIUM: NORMAL LEFT ATRIUM: NORMAL RIGHT VENTRICLE: NORMAL LEFT VENTRICLE: LEFT VENTRICULAR HYPERTROPHY TRICUSPID VALVE: NORMAL MITRAL VALVE: NORMAL PULMONIC VALVE: NORMAL AORTIC VALVE: NORMAL PERICARDIAL EFFUSION: NONE AORTIC ROOT: NORMAL LEFT VENTRICULAR WALL MOTION: NORMAL. DOPPLER/COLOR FLOW: NORMAL. COMMENTS: LEFT VENTRICULAR HYPERTROPHY - MILD NORMAL EJECTION FRACTION NO EFFUSION NO WALL MOTION ABNORMALITY TECHNOLOGIST: NELY MARRUFO
[2022-08-29] MEDS: ERTAPENEM NA 1 GM in NA CHLORIDE 0.9% 100 ML IVPB SCH (14:56)
--- NOTE | 2022-08-29 15:08 | P.PN ---
Subjective Date of Service: 08/29/22 Chief Complaint: Generalized abdominal pain No acute events overnight. Her abdominal pain is slightly improved compared to yesterday. She was able to tolerate a diet this morning. She denies any chest pain, palpitations, nausea, or vomiting. Review of Systems 10-point ROS is otherwise unremarkable Gastrointestinal: Abdominal Pain Physical Examination - Vital Signs Temperature: 97.8 F Blood Pressure: 146/88 Pulse: 85 Respirations: 16 Pulse Ox (%): 96 - Physical Exam General: Alert, In no apparent distress, Oriented x3 HEENT: Atraumatic, Mucous membr. moist/pink, Sclerae nonicteric Neck: JVD not distended Respiratory: Clear to auscultation bilaterally, Normal air movement Cardiovascular: No edema, Regular rate/rhythm, Normal S1 S2, No rubs, No murmurs Gastrointestinal: Normal bowel sounds, Soft and benign, Non-distended, No rebound, No guarding, Tenderness (generalized) Musculoskeletal: No clubbing Integumentary: No rashes Neurological: Normal speech, Normal affect Assessment And Plan - Plan # Acute Uncomplicated Diverticulitis - CT abdomen/pelvis = "findings of acute uncomplicated diverticulitis descending colon." - General Surgery consulted and spoke with Dr. Renner - recommendations appreciated - Given penicillin and metronidazole allergy, he recommended that we start her on ertapenem - Levofloxacin discontinued - PRN symptom control - Clear liquid diet - advance as tolerated - She was counseled that diverticulitis can be a sign of colon cancer. She was advised to schedule a colonoscopy in 4-6 weeks. She states that she follows with Dr. Gomez, and will schedule this appointment. # Type II Diabetes Mellitus # Hypertension # Hyperlipidemia # Gastroesophageal Reflux Disease # Chronic Obstructive Pulmonary Disease/Asthma - Reconcile home medications once verified Devin oH M.D.
--- NOTE | 2022-08-29 20:31 | CON ---
Date of Consultation: 08/29/2022 Brief History Of Present Illness: The patient is a 66-year-old black female with a past medical hist ory of diabetes, hypertension, hyperlipidemia, diverticulitis, sleep apnea, who presents with complai nts of abdominal pain beginning several weeks to months ago. It was generalized in the left upper ab domen and left side of her abdomen. She has had a partial colectomy for diverticulitis before in the past; however, it is about 6-7 years ago. This feels somewhat similar to her previous episodes of d iverticulitis. As such, she came to the emergency room with the above-stated complaints with her martin n and symptoms began significantly worse over the past 2-3 days. She did have some chest pain in the epigastric area, slightly to the left of midline, which was 10/10 and felt like pressure by her repo rt. She did have associated signs of headache, some nausea, generalized weakness, malaise, fatigue. She denies any sick contacts, any recent travel. She has had a colonoscopy years ago, she believes with Dr. Gomez, and does not recall any specific findings at that time. Past Medical History: Significant for sleep apnea, hypertension, diverticulitis, asthma, COPD, diabe akil, hyperlipidemia. Past Surgical History: Includes a partial colectomy, , cholecystectomy. Allergies: TO DILAUDID, PENICILLIN, LISINOPRIL, LOSARTAN, FLAGYL. Home Medications: Include Trulicity, magnesium, metformin, metoprolol, Crestor, Protonix, glipizide, albuterol, ascorbic acid, baclofen, vitamin D3, Farxiga, Lasix, Levemir, Linzess, Klor-Con, sennosid es, docusate sodium, nifedipine. Family History: Her mother had dementia. Sister had lung cancer. Brother had lung cancer. Father had hypertension, gastrointestinal disease, diabetes, stroke. Social History: She did have a positive tobacco use history. Denies alcohol or recreational drug us e. Review of Systems: Ten-point review of systems; malaise as described above, chest pain as described above, nausea as susana cribed above. Otherwise, Ten-point review of systems other than HPI, denies. Physical Examination: Vital Signs: At the time of my examination; blood pressure was 153/89, pulse rate was 89, respirator y rate 16, temperature 97.6. Pain level was 4 by her description. Her oxygen saturation was 93% on room air. General: She is awake, alert, oriented. Psychiatric: Appropriate, conversive. HEENT: She is normocephalic. Sclerae anicteric. Mucous membranes moist. Oropharynx clear. Neck: Supple without JVD. Chest: Expansion and excursion. Cardiovascular: Regular rate and rhythm. Pulmonary: Clear to auscultation bilaterally. Abdomen: Soft with positive left-sided abdominal pain extending from the entire left abdomen down to the pelvic region, also with some shifting in the distribution of the transverse colon. There was m inimal bloating to the area and mild distention. She does not have peritoneal signs as there was onl y minimal tenderness. There is no guarding, no rebound. No other concerning findings. Well-healed surgical scars were evident. Laboratory Data: Revealed a white blood cell count of 8.7, hemoglobin of 11.7, hematocrit of 36.8, p latelet count was 232, neutrophils are normal at 59.9. Her PT 10.3, INR 0.94. Sodium is 137, potass ium 3.9, chloride 106, carbon dioxide 31, BUN is 16, creatinine 0.9, glucose was 180, triglycerides 1 56, lipase is 20. Her UA showed 4+ glucose, 75 leukocyte esterase, trace protein. She had a CT scan of the abdomen and pelvis, officially read as inflammatory changes in the mid descending colon with focal wall thickening and mucosal hyperenhancement around the inflamed diverticula. There was modera te burden of colonic diverticulosis. Mild fluid tracking along the left pericolic gutter. No eviden ce of discrete fluid collections or free air. Right hernia containing fat. No suspicious mass or bu lky lymphadenopathy. The urinary bladder is without significant findings. Bilateral calcified lesio ns along both ovaries. The official impression is findings of acute uncomplicated diverticulitis of the descending colon. Assessment And Plan: This is a 66-year-old woman, who comes in with signs and symptoms of uncomplica namrata diverticulitis. 1.IV fluid hydration. 2.Antibiotic coverage. 3.I have explained the risks, benefits, and alternatives of nonoperative management versus operative management. We will proceed with nonoperative/medical management of her diverticulitis. Should thi s be successful, we will continue in this course and plan for no surgical intervention at this time. I have explained that the patient needs to follow up with Dr. Gomez to discuss possible endoscopy at an appropriate interval after resolution of her diverticulitis. She agrees to proceed with the p paola as indicated. Continue cardiovascular workup per primary medical team. I have explained the ris ks, benefits, alternatives the above stated plan. The patient agrees to proceed as indicated. LINA/ALVARO Voice ID: [id number] Report ID: [id number]
[2022-08-30 04:32] LABS: Magnesium 1.7 mg/dL (1.6-2.4)
[2022-08-30] MEDS: HYDROCODONE/APAP 10/325 TAB PO PRN (05:30)
[2022-08-30] MEDS: INSULIN -REGULAR HUMAN 50 UNIT/0.5 ML ML SQ SCH ×4 (07:30→20:44)
[2022-08-30] MEDS ORDERED: MAGNESIUM SULFATE 1 gm IVPB 1 GM/100 ML BAG IV ONE (08:00)
[2022-08-30] MEDS: ASPIRIN 81 MG CHEWABLE TABLET PO SCH (08:16)
[2022-08-30] MEDS: ENOXAPARIN 40 MG/0.4 ML SQ SCH (08:16)
[2022-08-30] MEDS: ERTAPENEM NA 1 GM in NA CHLORIDE 0.9% 100 ML IVPB SCH (12:24)
--- NOTE | 2022-08-30 13:02 | P.PN ---
Subjective Date of Service: 08/30/22 Chief Complaint: Generalized abdominal pain Subjective: Improving (Patient continues to have some pain, but improved, passing gas, no BM, no nausea) Physical Examination - Vital Signs Temperature: 97.3 F Blood Pressure: 177/87 Pulse: 83 Respirations: 16 Pulse Ox (%): 95 - Physical Exam General: Alert, In no apparent distress, Cooperative HEENT: Mucous membr. moist/pink Respiratory: Clear to auscultation bilaterally, Normal air movement Cardiovascular: Regular rate/rhythm Gastrointestinal: Other (soft, mild appropriate TTP in LLQ, LUQ, to the LEFT of epigastrium, no rebound, no peritonitis.) Assessment And Plan - Current Problems (Diagnosis) (1) Acute diverticulitis Current Visit: No Status: Resolved Plan: - Continue antibiotics - serial exams - continue medical management - follow up with Dr. Davalos as outpatient - will follow Physician Review: Patient Assessed, Agree with Above Assessment and Plan
[2022-08-30] MEDS ORDERED: DOCUSATE NA 100 MG CAP PO ONE (17:31)
[2022-08-30] MEDS: DOCUSATE NA 100 MG CAP PO SCH (20:38)
[2022-08-30] MEDS: ROSUVASTATIN 10 MG TAB PO SCH (20:43)
[2022-08-30] MEDS: METOPROLOL TAR 50 MG TAB PO SCH (20:44)
[2022-08-30] MEDS ORDERED: HOME MED 1 EA UNK (Metoprolol Tartrate [Metoprolol Tartrate] 100 MG Tablet) PO SCH (21:00)
[2022-08-31] MEDS: HYDROCODONE/APAP 10/325 TAB PO PRN ×2 (02:32→21:02)
[2022-08-31 03:07] LABS: Absolute Lymphocytes (CBC) 2.7 K/uL (0.7-4.9); Hematocrit 36.8 % (36.0-45.0); Lymphocytes % 37.9 % (15.3-44.8); MCV 75.9 fL (80-100); MPV 9.3 fL (7.6-11.3); RBC Red Blood Cell Count 4.85 M/uL (3.86-4.86)
[2022-08-31 03:27] LABS: Albumin 2.9 g/dL (3.4-5.0); Bilirubin Total 0.2 mg/dL (0.2-1.0); Magnesium 1.9 mg/dL (1.6-2.4); Protein, Total 7.2 g/dL (6.4-8.2)
[2022-08-31] MEDS: ASPIRIN 81 MG CHEWABLE TABLET PO SCH (08:58)
[2022-08-31] MEDS: INSULIN -REGULAR HUMAN 50 UNIT/0.5 ML ML SQ SCH ×4 (08:58→21:00)
[2022-08-31] MEDS: DULOXETINE 20 MG CAP PO SCH (08:58)
[2022-08-31] MEDS: DOCUSATE NA 100 MG CAP PO SCH ×2 (08:59→21:02)
[2022-08-31] MEDS: PANTOPRAZOLE 40MG TABLET PO SCH (08:59)
[2022-08-31] MEDS: DONEPEZIL HCL 5 MG TAB PO SCH (09:00)
[2022-08-31] MEDS: NIFEDIPINE XL 60 MG TABLET PO SCH (09:00)
[2022-08-31] MEDS: HOME MED 1 EA UNK (Linaclotide [Linzess] 290 MCG Capsule) PO SCH (09:00)
[2022-08-31] MEDS: ENOXAPARIN 40 MG/0.4 ML SQ SCH (09:00)
[2022-08-31 09:56] VITALS: O2SAT 95
[2022-08-31] MEDS ORDERED: MAGNESIUM HYDROXIDE 8% 30 ML PO ONE (11:18)
[2022-08-31] MEDS: ERTAPENEM NA 1 GM in NA CHLORIDE 0.9% 100 ML IVPB SCH (15:07)
--- NOTE | 2022-08-31 19:35 | RAD REPORT ---
EXAM DESCRIPTION: CT - Abdomen Pelvis W Contrast - 08/31/2022 7:01 pm CLINICAL HISTORY: Abdominal pain COMPARISON: August 28, 2022 TECHNIQUE: Computed axial tomography of the abdomen and pelvis was obtained. 100 cc Isovue-300 is ad ministered intravenously. Oral contrast was given. All CT scans are performed using dose optimization technique as appropriate and may include automated exposure control or mA/KV adjustment according to patient size. FINDINGS: The liver, spleen, pancreas, adrenals and kidneys appear unremarkable. Diverticula stem from the colon. The stranding adjacent to distal descending colon has diminished. No abscess. No free air. Normal appendix Cholecystectomy IMPRESSION: Improvement in mild descending colon diverticulitis
[2022-08-31] MEDS: ROSUVASTATIN 10 MG TAB PO SCH (21:01)
[2022-08-31] MEDS: METOPROLOL TAR 50 MG TAB PO SCH (21:02)
[2022-09-01 06:22] LABS: Absolute Lymphocytes (CBC) 1.8 K/uL (0.7-4.9); Hematocrit 38.1 % (36.0-45.0); Lymphocytes % 29.3 % (15.3-44.8); MCV 75.3 fL (80-100); MPV 8.9 fL (7.6-11.3); RBC Red Blood Cell Count 5.06 M/uL (3.86-4.86)
[2022-09-01 06:45] LABS: Albumin 3.1 g/dL (3.4-5.0); Bilirubin Total 0.3 mg/dL (0.2-1.0); Magnesium 1.7 mg/dL (1.6-2.4); Phosphorus 2.9 mg/dL (2.5-4.9); Potassium 3.8 mEq/L (3.5-5.1); Protein, Total 7.4 g/dL (6.4-8.2)
[2022-09-01] MEDS ORDERED: MAGNESIUM SULFATE 1 gm IVPB 1 GM/100 ML BAG IV ONE (06:57)
[2022-09-01] MEDS: INSULIN -REGULAR HUMAN 50 UNIT/0.5 ML ML SQ SCH ×2 (07:30→11:17)
[2022-09-01] MEDS: DONEPEZIL HCL 5 MG TAB PO SCH (08:09)
[2022-09-01] MEDS: ASPIRIN 81 MG CHEWABLE TABLET PO SCH (08:10)
[2022-09-01] MEDS: DOCUSATE NA 100 MG CAP PO SCH (08:10)
[2022-09-01] MEDS: PANTOPRAZOLE 40MG TABLET PO SCH (08:10)
[2022-09-01] MEDS: NIFEDIPINE XL 60 MG TABLET PO SCH (08:10)
[2022-09-01] MEDS: DULOXETINE 20 MG CAP PO SCH (08:11)
[2022-09-01] MEDS: ENOXAPARIN 40 MG/0.4 ML SQ SCH (08:11)
[2022-09-01] MEDS: HOME MED 1 EA UNK (Linaclotide [Linzess] 290 MCG Capsule) PO SCH (09:00)
[2022-09-01] MEDS ORDERED: POTASSIUM CL SA 10 MEQ TAB PO ONE (09:00)
[2022-09-01] MEDS ORDERED: INSULIN -REGULAR HUMAN 50 UNIT/0.5 ML ML ONE (11:22)
[2022-09-01 12:19] VITALS: BP 128/79; TEMP 98.1
== END 2022-09-01 14:07 | disposition home or self-care (01) | DRG 392 ==
LOC: ER 11:16 → ERHOLD 16:18 → 2ND 19:24 → UNDODISIN 08-31 13:17
PROVIDERS: ADMIT Internal Medicine; ATTEND Hospitalist
DX: K57.32 Diverticulitis of large intestine without perforation or abscess without bleeding (principal); E78.5 Hyperlipidemia, unspecified; I12.9 Hypertensive chronic kidney disease with stage 1 through stage 4 chronic kidney disease, or unspecified chronic kidney disease; N18.2 Chronic kidney disease, stage 2 (mild); E11.22 Type 2 diabetes mellitus with diabetic chronic kidney disease; E11.65 Type 2 diabetes mellitus with hyperglycemia; G47.30 Sleep apnea, unspecified; E66.09 Other obesity due to excess calories; J44.9 Chronic obstructive pulmonary disease, unspecified; K21.9 Gastro-esophageal reflux disease without esophagitis; Z79.4 Long term (current) use of insulin; Z88.5 Allergy status to narcotic agent; Z88.0 Allergy status to penicillin; Z88.8 Allergy status to other drugs, medicaments and biological substances; Z68.29 Body mass index [BMI] 29.0-29.9, adult; Z79.84 Long term (current) use of oral hypoglycemic drugs; Z79.899 Other long term (current) drug therapy; Z87.891 Personal history of nicotine dependence
CPT/HCPCS: 36415; 71045; 74177; 80048; 80053; 80061; 80076; 81001; 82565; 82947; 83690; 83735; 83880; 84100; 84484; 85025; 85610; 93005; 93306; 99285; J0696; J0744; J1335; J1650; J1815; J2405; J3010; J3475; J7030; Q9967

== ENCOUNTER → 2022-08-31 | Emergency (ER) | payer OTHER ==
[~2022-08-31] MED LIST changes: -LIDOCAINE 1% MPF 5 ML VIAL ONE; -NA CHLORIDE 0.9% 1,000 ML ONE; +PROMETHAZINE 25 MG TABLET ONE; -PROPOFOL 200 MG/20 ML VIAL IV ONE
--- OUTSIDE RECORDS SUMMARY | 2022-08-31 13:45 | XMS REPORT | Clinical Summary ---
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
--- NOTE | 2022-08-31 14:23 | EDPHYS ---
Physician Documentation [facility] Name: Amy Montalvo Age: 66 yrs Sex: Female : 1955 Arrival Date: 08/31/2022 Time: 13:42 Bed IW1 Private MD: ED Physician Akira Canales HPI: 08/31 14:13 This 66 yrs old Black Female presents to ER via Wheelchair with complaints of Nausea, snw Headache. 14:13 The patient presents to the emergency department with nausea, vomiting. Onset: The snw symptoms/episode began/occurred acutely, pt was just discharged today from inpatient status post dx diverticulitis. Pt has been getting Zofran for nausea and was feeling constipated. Pt rec'd Magnesium just prior to discharge and came to ED as it made her nauseated.. Historical: - Allergies: 14:04 Demerol; hb 14:04 Dilaudid; hb 14:04 Flagyl; hb 14:04 Lisinopril; hb 14:04 PENICILLINS; hb - PMHx: 14:04 Diabetes - NIDDM; Hyperlipidemia; Diverticulitis; Hypertension; Sleep Apnea; hb - PSHx: 14:04 bowel resection; section; hb ROS: 14:13 Constitutional: Negative for fever, chills, and weight loss, Eyes: Negative for injury, snw pain, redness, and discharge, ENT: Negative for injury, pain, and discharge, Neck: Negative for injury, pain, and swelling, Cardiovascular: Negative for chest pain, palpitations, and edema, Respiratory: Negative for shortness of breath, cough, wheezing, and pleuritic chest pain, Back: Negative for injury and pain, : Negative for injury, bleeding, discharge, and swelling, MS/Extremity: Negative for injury and deformity, Skin: Negative for injury, rash, and discoloration, Neuro: Negative for headache, weakness, numbness, tingling, and seizure, Psych: Negative for depression, anxiety, suicide ideation, homicidal ideation, and hallucinations. 14:13 Abdomen/GI: Positive for abdominal pain, nausea, vomiting. Exam: 14:12 Constitutional: This is a well developed, well nourished patient who is awake, alert, snw and in no acute distress. Head/Face: Normocephalic, atraumatic. Eyes: Pupils equal round and reactive to light, extra-ocular motions intact. Lids and lashes normal. Conjunctiva and sclera are non-icteric and not injected. Cornea within normal limits. Periorbital areas with no swelling, redness, or edema. ENT: Nares patent. No nasal discharge, no septal abnormalities noted. Tympanic membranes are normal and external auditory canals are clear. Oropharynx with no redness, swelling, or masses, exudates, or evidence of obstruction, uvula midline. Mucous membranes moist. Neck: Trachea midline, no thyromegaly or masses palpated, and no cervical lymphadenopathy. Supple, full range of motion without nuchal rigidity, or vertebral point tenderness. No Meningismus. Chest/axilla: Normal chest wall appearance and motion. Nontender with no deformity. No lesions are appreciated. Cardiovascular: Regular rate and rhythm with a normal S1 and S2. No gallops, murmurs, or rubs. Normal PMI, no JVD. No pulse deficits. Respiratory: Lungs have equal breath sounds bilaterally, clear to auscultation and percussion. No rales, rhonchi or wheezes noted. No increased work of breathing, no retractions or nasal flaring. Back: No spinal tenderness. No costovertebral tenderness. Full range of motion. Skin: Warm, dry with normal turgor. Normal color with no rashes, no lesions, and no evidence of cellulitis. MS/ Extremity: Pulses equal, no cyanosis. Neurovascular intact. Full, normal range of motion. Neuro: Awake and alert, GCS 15, oriented to person, place, time, and situation. Cranial nerves II-XII grossly intact. Motor strength 5/5 in all extremities. Sensory grossly intact. Cerebellar exam normal. Normal gait. Psych: Awake, alert, with orientation to person, place and time. Behavior, mood, and affect are within normal limits. 14:12 Abdomen/GI: Inspection: distension, Bowel sounds: normal, Palpation: mild abdominal tenderness, in the epigastric area and left upper quadrant. Vital Signs: 14:01 BP 147 / 101; Pulse 90; Resp 16; Temp 98.2(TE); Pulse Ox 94% on R/A; Weight 85.28 kg; hb Height 5 ft. 7 in. ; Pain 8/10; 14:01 Body Mass Index 29.44 (85.28 kg, 170.18 cm) hb 14:01 Pain Scale: Adult hb MDM: 14:07 Patient medically screened. snw 14:23 Differential diagnosis: medication reaction, diverticulitis, constipation. snw 14:23 Data reviewed: vital signs, nurses notes. 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 Special discussion:. ED course: . Administered Medications: 14:34 Drug: Promethazine PO 25 mg Route: PO; hb Disposition Summary: 08/31/22 14:23 Hospitalization Ordered Hospitalization Status: Observation snw Provider: Les Nascimento snw Location: Telemetry/MedSurg (observation) snw Condition: Stable snw Problem: an ongoing problem snw Symptoms: have worsened snw Bed/Room Type: Standard snw Room Assignment: snw Diagnosis - Nausea snw - Diverticulitis of large intestine without perforation or abscess without bleeding snw Forms: - Medication Reconciliation Form snw - SBAR form snw Signatures: Shira Kwok FNP-C CERTIFIED BENCH JEWELER TECHNICIAN-Csnw Julia Vargas, RN RN hb
--- NOTE | 2022-08-31 14:23 | ER ---
Nurse's Notes [facility] Name: Amy Montalvo Age: 66 yrs Sex: Female : 1955 Arrival Date: 08/31/2022 Time: 13:42 Bed IW1 Private MD: Diagnosis: Nausea;Diverticulitis of large intestine without perforation or abscess without bleeding Presentation: 08/31 14:01 Chief complaint: Was inpatient for diverticulitis, discharged this afternoon, c/o hb nausea and upper abdominal pain 8/10. Coronavirus screen: At this time, the client does not indicate any symptoms associated with coronavirus-19. Ebola Screen: No symptoms or risks identified at this time. Initial Sepsis Screen: Does the patient meet any 2 criteria? No. Patient's initial sepsis screen is negative. Does the patient have a suspected source of infection? No. Patient's initial sepsis screen is negative. Risk Assessment: Do you want to hurt yourself or someone else? Patient reports no desire to harm self or others. Onset of symptoms was August 31, 2022. 14:01 Method Of Arrival: Wheelchair hb 14:01 Acuity: FARIDA 3 hb Historical: - Allergies: 14:04 Demerol; hb 14:04 Dilaudid; hb 14:04 Flagyl; hb 14:04 Lisinopril; hb 14:04 PENICILLINS; hb - PMHx: 14:04 Diabetes - NIDDM; Hyperlipidemia; Diverticulitis; Hypertension; Sleep Apnea; hb - PSHx: 14:04 bowel resection; section; hb Vital Signs: 14:01 BP 147 / 101; Pulse 90; Resp 16; Temp 98.2(TE); Pulse Ox 94% on R/A; Weight 85.28 kg; hb Height 5 ft. 7 in. ; Pain 8/10; 14:01 Body Mass Index 29.44 (85.28 kg, 170.18 cm) hb 14:01 Pain Scale: Adult hb ED Course: 13:46 Patient arrived in ED. mr 14:04 Triage completed. hb 14:04 Arm band placed on. hb 14:06 Shira Kwok FNP-C is PHCP. snw 14:06 Akira Canales MD is Attending Physician. snw 14:22 Les Nascimento MD is Hospitalizing Provider. snw Administered Medications: 14:34 Drug: Promethazine PO 25 mg Route: PO; hb Outcome: 14:23 Decision to Hospitalize by Provider. [facility] 14:34 Patient left the ED. hb Signatures: Shira Kwok FNP-C FNP-Nereida Cardenas Heather, RN RN hb
--- OUTSIDE RECORDS SUMMARY | 2022-08-31 14:24 | XMS REPORT | Continuity of Care Document ---
:1955 Author Organization [facility] t Address [address] [place] [address] [address] [place] [address] Care Team Providers Name Role Phone Jon Cortes MD Primary Care Physician RENA ROLLINS Attending Clinician Unavailable RENA ROLLINS Attending Clinician Unavailable RAZ TINEO Attending Clinician Unavailable Patsy Trent PA-C Attending Clinician KATIE LIN Attending Clinician Unavailable Unknown, Attending Attending Clinician Unavailable PATSY TRENT Attending Clinician Unavailable Scarlett Swanson MD Attending Clinician [phone] Mikhail Perez LVN Attending Clinician Unavailable Lab, Ang - Db Attending Clinician Unavailable Raz Gloria Attending Clinician Rama Cunningham Attending Clinician Unavailable MARGARITA PEACOCK Attending Clinician Unavailable Margarita Fermin Attending Clinician Doctor Unassigned, [place] Attending Clinician Unavailable TONNY MARTINEZ Attending Clinician Unavailable Jony Wilson Attending Clinician EBRAHIM, RANIA Attending Clinician Unavailable Rena Rollins DO Attending Clinician Riley FERRARO, Katie Kiser Attending Clinician Ruby ROMEO, Flori Kent Attending Clinician Unavailable AKILAH SAENZ Attending Clinician Unavailable Nikolay BARKER, Danae Berrios Attending Clinician Akilah Saenz DO Attending Clinician OMAR MCGARRY Attending Clinician Unavailable Mcgarry VP CUSTOMER DEVELOPMENT, Reenu Attending Clinician TYLER MONTEJO Attending Clinician Unavailable Gustabo VP CUSTOMER DEVELOPMENT, Tyler Attending Clinician CIERRA ROBLERO Attending Clinician Unavailable Radiology Attending Clinician Unavailable RADIOLOGY Attending Clinician Unavailable Shreya GOLDEN, Tracy Paez Attending Clinician TRACY CASH Attending Clinician Unavailable Team, [facility] Attending Clinician Unavailabl e Provider, [facility] Attending Clinician Unavailable RISSA BAKER Attending Clinician Unavailable Rissa Baker MD Attending Clinician Belkys Joshua RN Attending Clinician Unavailable Traci VP CUSTOMER DEVELOPMENT, Barb Attending Clinician MATEO HUSAIN Attending Clinician Unavailable Rubi Valencia MD Attending Clinician TARSHA JEONG Attending Clinician Unavailable Jean-Paul GOLDEN, Tarsha Matthews Attending Clinician [phone] COLIN LEONARDO Attending Clinician Unavailable Rickey Alston MD N.SJesus Attending Clinician [phone] Rohan Hughes MD Attending Clinician [phone] Marisela Jaquez CRNA Attending Clinician [phone] ROXY STEINBERG Attending Clinician Unavailable Roxy Steinberg MD Attending Clinician Colin Leonardo MD Attending Clinician Sandra PAC, Johnnie S Attending Clinician Nurse, [facility] Attending Clinician Unavailable Dhaliwal RN, Krys B Attending Clinician Unavailable GUS STEWART Attending Clinician Unavailable Santy VP CUSTOMER DEVELOPMENT, Shinta Attending Clinician Pat FERRARO, Gus Attending Clinician Amador CHARLTON, Marcie T Attending Clinician Unavailable Lisha FERRARO, Mateo Kent Attending Clinician Eamon FERRARO, Barrington Attending Clinician RUBI VALENCIA Attending Clinician Unavailable OGUNLANA, BRE A Attending Clinician Unavailable Ogunlana DPM, Bre A Attending Clinician [phone] Kailey Bland MD Attending Clinician KAILEY BLAND Attending Clinician Unavailable KAILEY BLAND Attending Clinician Unavailable Therapist, [facility] Respiratory Attending Clinician Unavailable Floyd Man MD Attending Clinician FLOYD MAN Attending Clinician Unavailable Bárbara Gallo RN Attending Clinician Unavailable Only, Ang Db Test Attending Clinician Unavailable Omaghomi VP CUSTOMER DEVELOPMENT, Omayemi Attending Clinician OMAGHOMI, OMAYEMI Attending Clinician Unavailable Green VP CUSTOMER DEVELOPMENT, Asaf Attending Clinician ASAF ESPOSITO Attending Clinician Unavailable Vaccine, Ang Db Cbc Fam Attending Clinician Unavailable EUGENIE SMALLS Attending Clinician Unavailable Leora FERRARO, Herb Attending Clinician HERB COREY Attending Clinician Unavailable Ibikunle VP CUSTOMER DEVELOPMENT, Folusho F Attending Clinician Vladislav ROMEO, Leticia T Attending Clinician Unavailable Therapy, [facility] Covid Infusion Attending Clinician Unavailable Sebastian FERRARO, Pal Marinelli Attending Clinician Holland FERRARO, Mark Magana Attending Clinician Yonathan Bailey MD Attending Clinician Lab, [facility] Fam Pob I Attending Clinician Unavailable Serina COLLIER, Eugenie Ybarra Attending Clinician [phone] Gregory Pollock MD Attending Clinician ALEXSANDER TORRES Attending Clinician Unavailable Pob, [facility] Main Attending Clinician Unavailable Keeley GOLDEN, Daniel Schrader Attending Clinician Nurse, [facility] Attending Clinician Unavailable Provider, [facility] Attending Clinician Unavailable Nayana Haskins Attending Clinician YENIFER RIDDLE Attending Clinician Unavailable 2, [facility] Attending Clinician Unavailable CHELITA MELCHOR Attending Clinician Unavailable Alex PINEDA, Chelita Bañuelos Attending Clinician [phone] Bandar Nascimento MD, Davina Davis Attending Clinician Unavailable Raju_P Attending Clinician Unavailable Katia Estrada Attending Clinician KATIA EMMANUEL Attending Clinician Unavailable Juan Daniel Cornelius MD Attending Clinician JOHNNIE STARK Attending Clinician Unavailable 1, [facility] Attending Clinician Unavailable AKILAH SAENZ Admitting Clinician Unavailable Akilah Saenz DO Admitting Clinician RAZ TINEO Admitting Clinician Unavailable TYLER MONTEJO Admitting Clinician Unavailable RICKEY ALSTON Admitting Clinician Unavailable ROXY STEINBERG Admitting Clinician Unavailable GUS STEWART Admitting Clinician Unavailable Gus Stewart MD Admitting Clinician CHELITA MELCHOR Admitting Clinician Unavailable RUBI VALENCIA Admitting Clinician Unavailable German_Paulino Admitting Clinician Unavailable KATIA EMMANUEL Admitting Clinician Unavailable JOHNNIE STARK Admitting Clinician Unavailable Payers Payer Name Policy Type Policy Number Effective Date Expiration Date S eamon HUMANA CHOICE [id number] 2020 00:00[id number] 2019 00:00:00 MEDICARE PART A [id number] 2019 00:00:00 AETNA [facility] CARE [id number] 2013 00:00:00 AETNA O [id number] 2013 00:00:00 Problems Condition Condition Condition Status Onset Resolution Last Treating Co mments Source Name Details Category Date Date Treatment Clinician Date At risk At risk Disease Active Univers for falls for falls 4-28 ity of 00:00: [place] [facility] Unspecifie Unspecifie Disease Active U nivers d d 4-28 ity of abnormalit abnormalit [place] ies of Medical gait and gait and Branch mobility mobility Forgetfuln Forgetfuln Disease Active U nivers ess ess 4-28 ity of 00:00: [place] [facility] Shortness Shortness Disease Active Uni vers of breath of breath 2-23 ity of 00:00: [place] [address] Medical Branch Elevated Elevated Disease Active Unive rs brain brain 2-23 ity of natriureti natriureti [place] c peptide c peptide 00 [facility] (BNP) (BNP) Branch level level COVID-19 COVID-19 Disease Active Unive rs 2-23 ity of 00:00: [place] [address] Medical Branch HTN HTN Disease Active Univers (hypertens (hypertens 2-23 it y of ion) ion) 00:00: [place] [facility] Upper back Upper back Disease Active 2021-04 U nivers pain on pain on 2-16 ity of left side left [place] 00:[place] [facility] Pure Pure Disease Active Univers hyperchole hyperchole 7-16 it y of sterolemia sterolemia [place] Diabetes Diabetes Disease Active Unive rs mellitus mellitus 7-16 ity of 00:00: [address] Branch Cramp in Cramp in Disease Active Unive rs lower leg lower leg 7-16 ity of associated associated 00:[place] with rest with rest 00 [facility] Branch Cardiovasc Cardiovasc Disease Active U nivenmanuel ular ular 7-16 ity of system system 00:00: [place] problem problem 00 Medical Branch Gastritis, Gastritis, Disease Active U nivers Helicobact Helicobact 6-20 it y of er pylori er pylori 00:00: [place] [facility] Chronic Chronic Disease Active Univers low back low back 6-07 ity of pain pain 00:00: [place] [facility] Weakness Weakness Disease Active Unive rs 6-07 ity of 00:00: [place] [address] Medical Branch Hair loss Hair loss Disease Active 2020-04 Uni vers 2-26 ity of 00:00: [place] [facility] Chronic Chronic Disease Active 2020-04 Univers bilateral bilateral 2-26 ity of low back low back 00:00: [place] pain pain 00 Medical without without Branch sciatica sciatica Arthritis Arthritis Disease Active 2020-04 Uni vers of lumbar of lumbar 2-21 ity of spine spine 00:00: [place] [facility] Sinus Sinus Disease Active 2020-04 Univers tachycardi tachycardi 0-11 it y of a a 00:00: [place] [facility] Chronic Chronic Disease Active Univers fatigue fatigue 1-09 ity of 00:00: [place] [facility] History of History of Disease Active U nivers COVID-19 COVID-19 1- ity of 00:00: [place] [facility] Vitamin Vitamin Disease Active 2020- Univers B12 B12 6-28 ity of deficiency deficiency 00:00: [place] [facility] Other iron Other iron Disease Active 2020-0 U nivers deficiency deficiency 6-24 it y of anemia anemia 00:00: [place] MD [facility] Other iron Other iron Disease Active 2020-0 U nivers deficiency deficiency 6-24 it y of anemia anemia 00:00: [place] [facility] Diastolic Diastolic Disease Active 2018-04 Uni vers dysfunctio dysfunctio 2-15 it y of n n 00:00: [place] [facility] Pulmonary Pulmonary Disease Active 2019- Uni vers hypertensi hypertensi 2-15 it y of on on 00:00: [place] [facility] Dyslipidem Dyslipidem Disease Active 2019- U nivers ia ia 1-02 ity of 00:00: [place] [facility] Hypoxia Hypoxia Disease Active 2019- Univers 0-22 ity of 00:00: [place] [facility] Neuropathy Neuropathy Disease Active 2019-0 U nivers of both of both 8 ity of feet feet 00:00: [place] [facility] Myalgia Myalgia Disease Active 2019- Univers 8-01 ity of 00:00: [place] [facility] Uncontroll Uncontroll Disease Active 2019-0 [...] on on 00:00: [place] exertion) exertion) 00 [facility] Branch Multiple Multiple Disease Active Unive rs [...] Uni vers 4-16 ity of 00:00: [place] [facility] Chronic Chronic Disease Active Univers antral antral 1-25 ity of gastritis gastritis 00[place] [facility] [place] 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 1-25 ity of 00:00: [place] 00 [facility] Osteoarthr Osteoarthr Disease Active 2016-04 U nivers itis itis 0-19 ity of 00:00: [place] [facility] Blurry Blurry Disease Active 2016-04 Univers vision, vision, 0-12 ity of left eye left eye 00:00: [place] 00 Medical Branch Sicca, Sicca, Disease Active 2016-04 Univers unspecifie unspecifie 0-12 it y of d type d type 00:00: [place] 00 [facility] Vitamin B6 Vitamin B6 Disease Active 2016-04 U nivers deficiency deficiency 0-07 it y of 00:00: [place] [facility] Iron Iron Disease Active 2016-04 Univers deficiency deficiency 0-05 it y of 00:00: [place] [facility] B12 B12 Disease Active 2016-04 Univers deficiency deficiency 0-05 it y of 00:00: [place] [facility] Elevated Elevated Disease Active 2016-04 Unive rs sed rate sed rate 0-05 ity of 00:00: Medical Branch Abdominal Abdominal Disease Active Uni vers adhesions adhesions 8-25 ity of 00:00: [place] [facility] Chronic Chronic Disease Active Univers abdominal abdominal 8-25 ity of pain pain 00:00: [place] [facility] Obesity Obesity Disease Active Univers (BMI (BMI 4-25 ity of 30-39.9) 30-39.9) 00:00: [place] [facility] Pneumonia Pneumonia Disease Active Uni vers 4-25 ity of 00:00: [place] [facility] Vitamin D Vitamin D Disease Active Uni vers deficiency deficiency 4-06 it y of 00:00: [place] [facility] Hypocalcem Hypocalcem Disease Active U nivers ia ia 4- ity of 00:00: [place] [facility] Hypomagnes Hypomagnes Disease Active U nivers emia emia 4- ity of 00:00: [place] [facility] Severe Severe Disease Active Univers obstructiv obstructiv 3-08 it y of e sleep e sleep 00:00: [place] apnea apnea Medical Branch Chronic Chronic Disease Active Univers constipati constipati 2-05 it y of on on 00:00: [place] [facility] HLD HLD Disease Active Univers (hyperlipi (hyperlipi 2-05 it y of demia) demia) 00:00: [place] [facility] GERD GERD Disease Active Univers (gastroeso (gastroeso 2-04 it y of phageal phageal 00:00: [place] reflux reflux 00 Medical disease) disease) Branch 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 2-01 ity of diabetes diabetes 00:00: [place] mellitus mellitus 00 Medica l without without Branch complicati complicati on, on, without without long-term long-term current current use of use of insulin insulin Essential Essential Disease Active Uni vers hypertensi hypertensi 2-01 it y of on on 00:00: Medical Branch Allergies, Adverse Reactions, Alerts Allergy Allergy Status Severity Reaction(s) Onset Inactive Treating Comm ents Source Name Type Date Date Clinician PENICILL DRUG Active Hives Univers IN INGREDI 3-16 ity of 00:00: Medical Branch Penicill Drug Active Hives Univers in Allergy 3-16 ity of 00:00: Medical Branch Metronid Drug Active Unknown - Unive rs azole Allergy See comments 09-03 ity of 00:00: Medical Branch METRONID DRUG Active Unknown-Cmnt Un [place]endy AZOLE INGREDI 09-03 ity of 00:00: Medical Branch Ciproflo Propensi Active Rash 2019- Univer s xacin ty to 0-01 ity of adverse 00:00: [place] reaction 00 Medical s Branch CIPROFLO DRUG Active ITCHING 2019- Univers XACIN INGREDI 0-01 ity of 00:00: 00 Medical Branch Hydromor Propensi Active Hallucinatio [...] [facility] HYDROMOR DRUG Active Hallucinates 2020-0 Un wendy PHONE INGREDI 6-24 ity of 00:00: [place] 00 Medical Branch Hydromor Drug Active Hallucinatio 2020-0 Un [place]end[place] phone Allergy ns 6-24 ity of 00:00: [place] 00 Medical Branch Amlodipi Propensi Active Swelling 2019- Univ ers ne ty to 2-15 ity of adverse 00:00: [place] reaction 00 Medical s Branch AMLODIPI DRUG Active Swelling 2019-1 Univer s NE INGREDI 2-15 ity of 00:00: [place] 00 Medical Branch Losartan Propensi Active Swelling 2017-1 Meth mirian ty to [address] [facility] adverse 00:00: [facility] reaction 00 l s to drug Losartan Propensi Active Swelling 2017- Univ ers ty to 2-18 ity of adverse 00:00: [place] reaction 00 Medical s Branch LOSARTAN DRUG Active Swelling 2017- Univer s INGREDI 2-18 ity of 00:00: [place] 00 Medical Branch Hydromor Propensi Active Hallucinatio 2017- Univers phone ty to ns 0-22 ity of (Bulk) adverse 00:00: [place] reaction 00 Medical s Branch HYDROMOR DRUG Active Hallucinates 2017- Un wendy PHONE 0-22 ity of (BULK) 00:00: [place] 00 Medical Branch Lisinopr Propensi Active Swelling 2018-0 Meth mirian il ty to -28 st adverse 00:00: [facility]osp[facility] reaction 00 l s to drug Lisinopr Propensi Active Other - See 2018-0 U nivers il ty to comments - ity of adverse 00:00: [place] reaction 00 Medical s Branch LISINOPR DRUG Active Swelling 2018-0 Univer s [place] INGREDI 5-28 ity of 00:00: [place] 00 Medical Branch Penicill Propensi Active Hives 2016-0 Method i ins ty to 2- st adverse 00:00: [facility]osp[facility] reaction 00 l s to drug Metronid Propensi Active Swelling 2016-0 Meth mirian azole ty to 2-19 st Hcl adverse 00:00: [facility]osp[facility] reaction 00 l s to drug Penicill Propensi Active Hives 2015-0 Univer s ins ty to 2-19 ity of adverse 00:00: [place] reaction 00 Medical s Branch Metronid Propensi Active Swelling Univ ers azole ty to 2-19 ity [...] Natural brother Lung cancer Universi ty of [facility] Natural father Diabetes [facility] Natural father Hypertension Universi ty [facility] Maternal grandfather Leukemia Univ ersity of [facility] Natural mother Dementia [facility] Natural sister Thyroid cancer Univer sity [facility] Social History Social Habit Start Date Stop Date Quantity Comments Source History SDOH [facility] Alcohol Comment Hospital History of tobacco Cigarette Smoker [facility] Medical Branch History SDOH Social Unive rsity of [facility] Med ical Together Branch History SDOH Social Unive rsity of [facility] Medical Branch History SDOH Social Unive rsity of [facility] Medical Membership Branch History SDOH Social Unive rsity of [facility] Medical Meetings Branch Gender identity [facility] Hospital Sexual orientation [facility] Exposure to 2022-07-30 2022-08-09 Not sure University SARS-CoV-2 (event) 00:00:00 10:05:00 [place] [facility] History SDOH 2022-06-07 2022-06-07 1 University o f Alcohol Frequency 00:00:00 00:00:00 [place] [facility] ed[facility] History SDOH 2022-06-07 2022-06-07 0 University o f Alcohol Std Drinks 00:00:00 00:00:00 [place] [facility] History SDOH 2022-06-07 2022-06-07 1 University o f Alcohol Binge 00:00:00 00:00:00 [place] [facility] History SDTX Social 2022-06-07 2022-06-07 5 Unive rsity of Connections Phone 00:00:00 00:00:00 [facility] [place] [facility] edical Branch History SDOH Social 2022-06-07 2022-06-07 4 Unive rsity of Connections Living 00:00:00 00:00:00 [place] [facility] History SDTX 2022-06-07 2022-06-07 4 University o f Physical Activity 00:00:00 00:00:00 [facility] [place] [facility] edical DPW Branch History SDTX 2022-06-07 2022-06-07 2 University o f Physical Activity 00:00:00 00:00:00 [facility] MPS Branch History SDTX 2022-06-07 2022-06-07 5 University o f Financial 00:00:00 00:00:00 [place] [facility] History SDTX Food 2022-06-07 2022-06-07 1 Univers ity of Worry 00:00:00 00:00:00 [place] [facility] History SDOH Food 2022-06-07 2022-06-07 1 Univers ity of Scarcity 00:00:00 00:00:00 [facility] Branch History SDTX 2022-06-07 2022-06-07 2 University o f Transport Med 00:00:00 00:00:00 [place] [facility] History SDTX 2022-06-07 2022-06-07 2 University o f Transport Non-Med 00:00:00 00:00:00 [facility] Branch Cigarettes smoked 2021-11-26 2021-11-26 Univers ity of current (pack per 00:00:00 00:00:00 [facility] day) - Reported Branch Cigarette 2021-11-26 2021-11-26 University of pack-years 00:00:00 00:00:00 [facility] Tobacco use and 2021-11-26 2021-11-26 Smokeless Universit y of exposure 00:00:00 00:00:00 tobacco non-user [facility] dical Branch Tobacco Comment 2021-11-26 2021-11-26 Quit about 25 Univer sity of 00:00:00 00:00:00 years ago [facility] Alcohol intake 2021-10-16 2021-10-16 Lifetime [employer]ism 00:00:00 00:00:00 non-drinker Hospital (finding) History of Social 2021-10-16 2021-10-[address] function 00:00:00 00:00:00 Hospital Education 2021-09-18 2021-09-18 21 [facility] 00:00:00 00:00:00 [facility] Sex [birth year] At [birth year] [employer] 00:00:00 00:00:00 Hospital Smoking Status Start Date Stop Date Source Ex-smoker 2021-11-26 00:00:00 2021-11-26 00:00:00 [facility] Medications Ordered Filled Start Stop Current Ordering Indication Dosage Frequency Signature Comments Components Source Medication Medication Date Date Medication? Clinician (SIG) Name Name magnesium Yes [id number] TAKE 2 U nivers oxide 400 5-04 TABLETS BY ity of mg (241.3 00:00: MOUTH 4 [place] mg 00 TIMES Medical magnesium) DAILY Branch tablet magnesium Yes [id number] TAKE 2 U nivers oxide 400 5-04 TABLETS BY ity of mg (241.3 00:00: MOUTH 4 [place] mg 00 TIMES Medical magnesium) DAILY Branch tablet magnesium Yes [id number] TAKE 2 U nivers oxide 400 5-04 TABLETS BY ity of mg (241.3 00:00: MOUTH 4 [place] mg 00 TIMES Medical magnesium) DAILY Branch tablet magnesium Yes [id number] TAKE 2 U nivers oxide 400 5-04 TABLETS BY ity of mg (241.3 00:00: MOUTH 4 [place] mg 00 TIMES Medical magnesium) DAILY Branch tablet Insulin Yes [id number] 7U inject 7 Un wendy Detemir 4-28 Units ity of (LEVEMIR 00:00: [place] FLEXTOU[place] 00 skin at Medical U-100 bedtime. Branch INSULN) 100 unit/mL (3 mL) injection NIFEdipine Yes [id number] 60mg Take 1 U nivers XL 60 mg 24 4-28 tablet by ity of hr tablet 00:00: [place] 00 the Medical morning. Branch tiZANidine Yes [id number] 2mg Take 1 U nivers 2 mg tablet 4-28 tablet by ity of 00:00: mouth [place] 00 every 6 Medical (six) Branch hours as needed for Pain (scale 4-6). dulaglutide Yes [id number] INJECT Univers (TRULICITY) 4-28 1.5MG (1 ity of 1.5 mg/0.5 00:00: PEN) [place] mL PnIj 00 SUBCUTANEO Medica l USLY EVERY Branch WEEK meloxicam Yes [id number] 7.5mg Take 1 Univers (MOBIC) 7.5 4-28 tablet by ity of mg tablet 00:00: mouth [place] 00 daily as Medical needed for Branch Pain (scale 7-10) (use sparingly due to side effects). Insulin Yes [id number] 7U inject 7 Un wendy Detemir 4-28 Units ity of (LEVEMIR 00:00: [place] FLEXT[place] skin at Medical U-100 bedtime. Branch INSULN) 100 unit/mL (3 mL) injection NIFEdipine Yes [id number] 60mg Take 1 U nivers XL 60 mg 24 4-28 tablet by ity of hr tablet 00:00: [place] the Medical morning. Branch tiZANidine Yes [id number] 2mg Take 1 U nivers 2 mg tablet 4-28 tablet by ity of 00:00: mouth [place] 00 every 6 Medical (six) Branch hours as needed for Pain (scale 4-6). dulaglutide Yes [id number] INJECT Univers (TRULICITY) 4-28 1.5MG (1 ity of 1.5 mg/0.5 00:00: PEN) [place] mL PnIj 00 SUBCUTANEO Medica l USLY EVERY Branch WEEK meloxicam Yes [id number] 7.5mg Take 1 Univers (MOBIC) 7.5 4-28 tablet by ity of mg tablet 00:00: mouth once [place] 00 daily as Medical needed for Branch Pain (scale 7-10) (use sparingly due to side effects). Insulin Yes [id number] 7U inject 7 Un wendy Detemir 4-28 Units ity of (LEVEMIR 00:00: [place] FLE[place] skin at [place] [address] bedtime. Branch INSULN) 100 unit/mL (3 mL) injection NIFEdipine 2022-0 Yes [id number] 60mg Take 1 U nivers XL 60 mg 24 4-28 tablet by ity of hr tablet 00:00: mouth in [place] 00 the Medical morning. Branch tiZANidine 2022-0 Yes [id number] 2mg Take 1 U nivers 2 mg tablet 4-28 tablet by ity of 00:00: mouth 00 every 6 Medical (six) Branch hours as needed for Pain (scale 4-6). dulaglutide 2022-0 Yes [id number] INJECT Univers (TRULICITY) 4-28 1.5MG (1 ity of 1.5 mg/0.5 00:00: PEN) [place] mL PnIj 00 SUBCUTANEO Medica l USLY EVERY Branch WEEK meloxicam 2022-0 Yes [id number] 7.5mg Take 1 Univers (MOBIC) 7.5 4-28 tablet by ity of mg tablet 00:00: mouth once [place] 00 daily as Medical needed for Branch Pain (scale 7-10) (use sparingly due to side effects). Insulin 2022- Yes [id number] 7U inject 7 Un wendy Detemir 4-28 Units ity of (LEVEMIR 00:00: under the [facility] FLEXTOUCH 00 [facility] Branch INSULN) 100 unit/mL (3 mL) injection NIFEdipine 2022-0 Yes [id number] 60mg Take 1 U nivers XL 60 mg 24 4-28 tablet by ity of hr tablet 00:00: mouth in s the Medical morning. Branch tiZANidine 2022-0 Yes [id number] 2mg Take 1 U nivers 2 mg tablet 4-28 tablet by ity of 00:00: mouth 00 every 6 Medical (six) Branch hours as needed for Pain (scale 4-6). dulaglutide 2022-0 Yes [id number] INJECT Univers (TRULICITY) 4-28 1.5MG (1 ity of 1.5 mg/0.5 00:00: PEN) [place] mL PnIj 00 SUBCUTANEO Medica l USLY EVERY Branch WEEK meloxicam 2022-0 Yes [id number] 7.5mg Take 1 Univers (MOBIC) 7.5 4-28 tablet by ity of mg tablet 00:00: mouth once [place] 00 daily as Medical needed for Branch Pain (scale 7-10) (use sparingly due to side effects). Insulin Yes [id number] USE Univ ers [place], 4-28 DIRECTED ity of Disposable, 00:00: TO INJECT [place] (DROPLET 00 INSULIN Medical PEN NEEDLE) ONCE DAILY Br anch 31 gauge x 5/16" Ndle Insulin Yes [id number] 7U inject 7 Un wendy Detemir 4-28 Units ity of (LEVEMIR 00:00: [place] FLEXT[place] 00 skin at Medical U-100 bedtime. Branch INSULN) 100 unit/mL (3 mL) injection NIFEdipine Yes [id number] 60mg Take 1 U nivers XL 60 mg 24 4-28 tablet by ity of hr tablet 00:00: [place] 00 the Medical morning. Branch tiZANidine Yes [id number] 2mg Take 1 [facility] nivers 2 mg tablet 4-28 tablet by ity of 00:00: mouth [place] 00 every 6 Medical (six) Branch hours as needed for Pain (scale 4-6). dulaglutide Yes [id number] INJECT [facility] (TRULICITY) 4-28 1.5MG (1 ity of 1.5 mg/0.5 00:00: PEN) [place] mL PnIj 00 SUBCUTANEO Medica l USLY EVERY Branch WEEK meloxicam Yes [id number] 7.5mg Take 1 [facility] (MOBIC) 7.5 4-28 tablet by ity of mg tablet 00:00: mouth once [place] 00 daily as Medical needed for Branch Pain (scale 7-10) (use sparingly due to side effects). Insulin Yes [id number] USE [facility] [place], 4-28 DIRECTED ity of Disposable, 00:00: TO INJECT [place] (DROPLET 00 INSULIN Medical PEN NEEDLE) ONCE DAILY Br anch 31 gauge x 5/16" Ndle Insulin Yes [id number] 7U inject 7 [facility] [place] Detemir 4-28 Units ity of (LEVEMIR 00:00: [place] FLEXTOUCH 00 skin at Medical U-100 bedtime. Branch INSULN) 100 unit/mL (3 mL) injection NIFEdipine Yes [id number] 60mg Take 1 U nivers XL 60 mg 24 4-28 tablet by it[facility] of hr tablet 00:00: mouth [place] 00 the Medical morning. Branch tiZANidine Yes [id number] 2mg Take 1 [facility] nivers 2 mg tablet 4-28 tablet by ity of 00:00: mouth [place] 00 every 6 Medical (six) Branch hours as needed for Pain (scale 4-6). dulaglutide Yes [id number] INJECT [facility] (TRULICITY) 4-28 1.5MG (1 ity of 1.5 mg/0.5 00:00: PEN) [place] mL PnIj 00 SUBCUTANEO Medica l USLY EVERY Branch WEEK meloxicam Yes [id number] 7.5mg Take 1 [facility] (MOBIC) 7.5 4-28 tablet by ity of mg tablet 00:00: mouth once [place] 00 daily as Medical needed for Branch Pain (scale 7-10) (use sparingly due to side effects). Insulin Yes [id number] USE [facility] [place], 4-28 DIRECTED ity of Disposable, 00:00: TO INJECT [place] (DROPLET 00 INSULIN Medical PEN NEEDLE) ONCE DAILY Br anch 31 gauge x 5/16" Ndle Insulin Yes [id number] 7U inject 7 Un [place] Detemir 4-28 Units ity of (LEVEMIR 00:00: [place] FLEXTOUCH 00 skin at Medical U-100 bedtime. Branch INSULN) 100 unit/mL (3 mL) injection NIFEdipine Yes [id number] 60mg Take 1 U nivers XL 60 mg 24 4-28 tablet by [facility] hr tablet 00:00: mouth [place] 00 the Medical morning. Branch tiZANidine Yes [id number] 2mg Take 1 [facility] nivers 2 mg tablet 4-28 tablet by ity of 00:00: mouth [place] 00 every 6 Medical (six) Branch hours as needed for Pain (scale 4-6). dulaglutide Yes [id number] INJECT [facility] (TRULICITY) 4-28 1.5MG (1 ity of 1.5 mg/0.5 00:00: PEN) [place] mL PnIj 00 SUBCUTANEO Medica l USLY EVERY Branch WEEK meloxicam Yes [id number] 7.5mg Take 1 [facility] (MOBIC) 7.5 4-28 tablet by ity of mg tablet 00:00: mouth once [place] 00 daily as Medical needed for Branch Pain (scale 7-10) (use sparingly due to side effects). Insulin Yes [id number] USE [facility] [place], 4-28 DIRECTED ity of Disposable, 00:00: TO INJECT [place] (DROPLET 00 INSULIN Medical PEN NEEDLE) ONCE DAILY Br anch 31 gauge x 5/16" Ndle Insulin Yes [id number] 7U inject 7 [facility] [place] Detemir 4-28 Units ity of (LEVEMIR 00:00[facility] Medical U-100 bedtime. Branch INSULN) 100 unit/mL (3 mL) injection NIFEdipine Yes [id number] 60mg Take 1 U nivers XL 60 mg 24 4-28 tablet by it[facility] of hr tablet 00:00: mouth [place] 00 the Medical morning. Branch tiZANidine Yes [id number] 2mg Take 1 [facility] nivers 2 mg tablet 4-28 tablet by ity of 00:00: mouth [place] 00 every 6 Medical (six) Branch hours as needed for Pain (scale 4-6). dulaglutide Yes [id number] INJECT [facility] (TRULICITY) 4-28 1.5MG (1 ity of 1.5 mg/0.5 00:00: PEN) [place] mL PnIj 00 SUBCUTANEO Medica l USLY EVERY Branch WEEK meloxicam Yes [id number] 7.5mg Take 1 [facility] (MOBIC) 7.5 4-28 tablet by ity of mg tablet 00:00: mouth once [place] 00 daily as Medical needed for Branch Pain (scale 7-10) (use sparingly due to side effects). Insulin Yes [id number] USE [facility] [place], 4-28 DIRECTED ity of Disposable, 00:00: TO INJECT [place] (DROPLET 00 INSULIN Medical PEN NEEDLE) ONCE DAILY Br anch 31 gauge x 5/16" Ndle Insulin Yes [id number] 7U inject 7 [facility] [place] Detemir 4-28 Units ity of (LEVEMIR 00:00: under the [facility] s FLEXTOUCH 00 skin at Medical U-100 bedtime. Branch INSULN) 100 unit/mL (3 mL) injection NIFEdipine Yes [id number] 60mg Take 1 U nivers XL 60 mg 24 -28 tablet by ity of hr tablet 00:00: mouth [place] 00 the Medical morning. Branch tiZANidine Yes [id number] 2mg Take 1 U nivers 2 mg tablet -28 tablet by ity of 00:00: mouth [place] 00 every 6 Medical (six) Branch hours as needed for Pain (scale 4-6). dulaglutide Yes [id number] INJECT [facility] (TRULICITY) 4-28 1.5MG (1 ity of 1.5 mg/0.5 00:00: PEN) [place] mL PnIj 00 SUBCUTANEO Medica l USLY EVERY Branch WEEK meloxicam Yes [id number] 7.5mg Take 1 [facility] (MOBIC) 7.5 -28 tablet by ity of mg tablet 00:00: mouth once [place] 00 daily as Medical needed for Branch Pain (scale 7-10) (use sparingly due to side effects). Insulin Yes [id number] USE [facility] [place], -28 DIRECTED ity of Disposable, 00:00: TO INJECT [place] (DROPLET 00 INSULIN Medical PEN NEEDLE) ONCE DAILY Br anch 31 gauge x 08/27" Ndle tiZANidine 2023- No [id number] 2mg Take 1 [facility] 2 mg tablet 08-09- tablet by it y of 00:00: 00:00 mouth [place] 00 :00 every 6 Medical (six) Branch hours as needed for Pain (scale 4-6). tiZANidine 0 2023- No [id number] 2mg Take 1 [facility] 2 mg tablet 08-09- tablet by it y of 00:00: 00:00 mouth [place] 00 :00 every 6 Medical (six) Branch hours as needed for Pain (scale 4-6). azelastine Yes [id number] 1{spray Use 1 [facility] 137 mcg 3-30 } [place] in ity of (0.1 %) 00:00: each [place] nasal spray 00 nostril in Me dical the Branch morning and 1 [place] in the evening. Use in each nostril as directed benzonatate 2022-0 Yes [id number] 100mg Take 1 [facility] (TESSALON 3-30 capsule by ity of PERLES) 100 00:00: mouth [place] mg capsule 00 every 8 Medica l (eight) Branch hours as needed for Cough. azelastine 0 Yes [id number] 1{spray Use 1 [facility] 137 mcg 3-30 } [place] in ity of (0.1 %) 00:00: each [place] nasal spray 00 nostril in [place] dical the Branch morning and 1 [place] in the evening. Use in each nostril as directed benzonatate 2022-0 Yes [id number] 100mg Take 1 [facility] (TESSALON 3-30 capsule by ity of PERLES) 100 00:00: mouth [place] mg capsule 00 every 8 Medica l (eight) Branch hours as needed for Cough. azelastine 0 Yes [id number] 1{spray Use 1 [facility] 137 mcg 3-30 } [place] in ity of (0.1 %) 00:00: each [place] nasal spray 00 nostril in [place] dical the Branch morning and 1 [place] in the evening. Use in each nostril as directed benzonatate 2022-0 Yes [id number] 100mg Take 1 [facility] (TESSALON 3-30 capsule by ity of PERLES) 100 00:00: mouth [place] mg capsule 00 every 8 Medica l (eight) Branch hours as needed for Cough. azelastine 0 Yes [id number] 1{spray Use 1 [facility] 137 mcg 3-30 } [place] in ity of (0.1 %) 00:00: each [place] nasal spray 00 nostril in [place] dical the Branch morning and 1 [place] in the evening. Use in each nostril as directed benzonatate 2022-0 Yes [id number] 100mg Take 1 [facility] (TESSALON 3-30 capsule by ity of PERLES) 100 00:00: mouth [place] mg capsule 00 every 8 Medica l (eight) Branch hours as needed for Cough. azelastine 2022-0 Yes [id number] 1{spray Use 1 [facility] 137 mcg 3-30 } [place] in ity of (0.1 %) 00:00: each [place] nasal spray 00 nostril in Me dical the Branch morning and 1 [place] in the evening. Use in each nostril as directed benzonatate 2022-0 Yes [id number] 100mg Take 1 [facility] (TESSALON 3-30 capsule by ity of PERLES) 100 00:00: mouth [place] mg capsule 00 every 8 Medica l (eight) Branch hours as needed for Cough. azelastine 0 Yes [id number] 1{spray Use 1 [facility] 137 mcg 3-30 } [place] in ity of (0.1 %) 00:00: each [place] nasal spray 00 nostril in [place] dical the Branch morning and 1 [place] in the evening. Use in each nostril as directed benzonatate 2022-0 Yes [id number] 100mg Take 1 [facility] (TESSALON 3-30 capsule by ity of PERLES) 100 00:00: mouth [place] mg capsule 00 every 8 Medica l (eight) Branch hours as needed for Cough. azelastine 0 Yes [id number] 1{spray Use 1 [facility] 137 mcg 3-30 } [place] in ity of (0.1 %) 00:00: each [place] nasal spray 00 nostril in [facility] dical the Branch morning and 1 [place] in the evening. Use in each nostril as directed benzonatate 2022-0 Yes [id number] 100mg Take 1 [facility] (TESSALON 3-30 capsule by ity of PERLES) 100 00:00: mouth [place] mg capsule 00 every 8 Medica l (eight) Branch hours as needed for Cough. azelastine 0 Yes [id number] 1{spray Use 1 [facility] 137 mcg 3-30 } [place] in ity of (0.1 %) 00:00: each [place] nasal spray 00 nostril in [facility] dical the Branch morning and 1 [place] in the evening. Use in each nostril as directed benzonatate 2022-0 Yes [id number] 100mg Take 1 [facility] (TESSALON 3-30 capsule by ity of PERLES) 100 00:00: mouth [place] mg capsule 00 every 8 Medica l (eight) Branch hours as needed for Cough. azelastine 2022-0 Yes [id number] 1{spray Use 1 [facility] 137 mcg 3-30 } [place] in ity of (0.1 %) 00:00: each [place] nasal spray 00 nostril in Me dical the Branch morning and 1 [place] in the evening. Use in each nostril as directed benzonatate 2022-0 Yes [id number] 100mg Take 1 [facility] (TESSALON 3-30 capsule by ity of PERLES) 100 00:00: mouth [place] mg capsule 00 every 8 Medica l (eight) Branch hours as needed for Cough. azelastine 0 Yes [id number] 1{spray Use 1 [facility] 137 mcg 3-30 } [place] in ity of (0.1 %) 00:00: each [place] nasal spray 00 nostril in S[place] dical the Branch morning and 1 [place] in the evening. Use in each nostril as directed benzonatate 2022-0 Yes [id number] 100mg Take 1 [facility] (TESSALON 3-30 capsule by ity of PERLES) 100 00:00: mouth [place] mg capsule 00 every 8 Medica l (eight) Branch hours as needed for Cough. azelastine 0 Yes [id number] 1{spray Use 1 [facility] 137 mcg 3-30 } [place] in ity of (0.1 %) 00:00: each [place] nasal spray 00 nostril in [facility] dical the Branch morning and 1 [place] in the evening. Use in each nostril as directed benzonatate 2022-0 Yes [id number] 100mg Take 1 [facility] (TESSALON 3-30 capsule by ity of PERLES) 100 00:00: mouth [place] mg capsule 00 every 8 Medica l (eight) Branch hours as needed for Cough. azelastine 0 Yes [id number] 1{spray Use 1 [facility] 137 mcg 3-30 } [place] in ity of (0.1 %) 00:00: each [place] nasal spray 00 nostril in [facility] dical the Branch morning and 1 [place] in the evening. Use in each nostril as directed benzonatate 2022-0 Yes [id number] 100mg Take 1 [facility] (TESSALON 3-30 capsule by ity of PERLES) 100 00:00: mouth [place] mg capsule 00 every 8 Medica l (eight) Branch hours as needed for Cough. azelastine 2022-0 Yes [id number] 1{spray Use 1 [facility] 137 mcg 3-30 } [place] in ity of (0.1 %) 00:00: each [place] nasal spray 00 nostril in Me dical the Branch morning and 1 [place] in the evening. Use in each nostril as directed benzonatate 0 Yes [id number] 100mg Take 1 [facility] (TESSALON 3-30 capsule by ity of PERLES) 100 00:00: mouth [place] mg capsule 00 every 8 Medica l (eight) Branch hours as needed for Cough. azelastine Yes [id number] 1{spray Use 1 [facility] 137 mcg 3-30 } [place] in ity of (0.1 %) 00:00: each [place] nasal spray 00 nostril in Me dical the morning and 1 [place] in the evening. Use in each nostril as directed benzonatate Yes [id number] 100mg Take 1 [facility] (TESSALON 3-30 capsule by ity of PERLES) 100 00:00: mouth [place] mg capsule 00 every 8 Medica l (eight) Branch hours as needed for Cough. ferrous 2022-0 Yes [id number] 324mg Take 1 [facility] vers gluconate 3-07 tablet by ity o f 324 mg (38 00:00: mouth [place] mg iron) 00 daily with Medic al tablet breakfast. Branch ascorbic 2022-0 Yes [id number] 500mg Take 500 [facility] acid, 3-07 mg by ity of vitamin C, 00:00: mouth in [place] 500 mg Cap 00 the Medical morning. Branch ferrous 2022-0 Yes [id number] 324mg Take 1 [facility] vers gluconate 3-07 tablet by ity o f 324 mg (38 00:00: mouth [place] mg iron) 00 daily with Medic al tablet breakfast. Branch ascorbic 2022-0 Yes [id number] 500mg Take 500 [facility] acid, 3-07 mg by ity of vitamin C, 00:00: mouth in [place] 500 mg Cap 00 the Medical morning. Branch ferrous 2022-0 Yes [id number] 324mg Take 1 [facility] vers gluconate 3-07 tablet by ity o f 324 mg (38 00:00: mouth [place] mg iron) 00 daily with Medic al tablet breakfast. Branch ascorbic 2022-0 Yes [id number] 500mg Take 500 [facility] acid, 3-07 mg by ity of vitamin C, 00:00: mouth in [place] 500 mg Cap 00 the Medical morning. Branch ferrous 2023-0 Yes [id number] 324mg Take 1 [facility] vers gluconate 3-07 tablet by ity o f 324 mg (38 00:00: mouth [place] mg iron) 00 daily with Medic al tablet breakfast. Branch ascorbic 2023-0 Yes [id number] 500mg Take 500 [facility] acid, 3-07 mg by ity of vitamin C, 00:00: mouth in [place] 500 mg Cap 00 the Medical morning. Branch ferrous 3-0 Yes [id number] 324mg Take 1 [facility] vers gluconate 3-07 tablet by ity o f 324 mg (38 00:00: mouth [place] mg iron) 00 daily with Medic al tablet breakfast. Branch ascorbic 3-0 Yes [id number] 500mg Take 500 [facility] acid, 3-07 mg by ity of vitamin C, 00:00: mouth in [place] 500 mg Cap 00 the Medical morning. Branch ferrous 3-0 Yes [id number] 324mg Take 1 [facility] vers gluconate 3-07 tablet by ity o f 324 mg (38 00:00: mouth [place] mg iron) 00 daily with Medic al tablet breakfast. Branch ascorbic 3-0 Yes [id number] 500mg Take 500 [facility] acid, 3-07 mg by ity of vitamin C, 00:00: mouth in [place] 500 mg Cap 00 the Medical morning. Branch ferrous 3-0 Yes [id number] 324mg Take 1 [facility] vers gluconate 3-07 tablet by ity o f 324 mg (38 00:00: mouth [place] mg iron) 00 daily with Medic al tablet breakfast. Branch ascorbic 2023-0 Yes [id number] 500mg Take 500 [facility] acid, 3-07 mg by ity of vitamin C, 00:00: mouth in [place] 500 mg Cap 00 the Medical morning. Branch ferrous 2023-0 Yes [id number] 324mg Take 1 [facility] vers gluconate 3-07 tablet by ity o f 324 mg (38 00:00: mouth [place] mg iron) 00 daily with Medic al tablet breakfast. Branch ascorbic 2023-0 Yes [id number] 500mg Take 500 [facility] acid, 3-07 mg by ity of vitamin C, 00:00: mouth in [place] 500 mg Cap 00 the Medical morning. Branch ferrous 2023-0 Yes [id number] 324mg Take 1 [facility] vers gluconate 3-07 tablet by ity o f 324 mg (38 00:00: mouth [place] mg iron) 00 daily with Medic al tablet breakfast. Branch ascorbic 2022-0 Yes [id number] 500mg Take 500 [facility] acid, 3-07 mg by ity of vitamin C, 00:00: mouth in [place] 500 mg Cap 00 the Medical morning. Branch ferrous 3-0 Yes [id number] 324mg Take 1 [facility] vers gluconate 3-07 tablet by ity o f 324 mg (38 00:00: mouth [place] mg iron) 00 daily with Medic al tablet breakfast. Branch ascorbic 2022-0 Yes [id number] 500mg Take 500 [facility] acid, 3-07 mg by ity of vitamin C, 00:00: mouth in [place] 500 mg Cap 00 the Medical morning. Branch ferrous 3-0 Yes [id number] 324mg Take 1 [facility] vers gluconate 3-07 tablet by ity o f 324 mg (38 00:00: mouth [place] mg iron) 00 daily with Medic al tablet breakfast. Branch ascorbic 2022-0 Yes [id number] 500mg Take 500 [facility] acid, 3-07 mg by ity of vitamin C, 00:00: mouth in [place] 500 mg Cap 00 the Medical morning. Branch ferrous 2022-0 Yes [id number] 324mg Take 1 [facility] vers gluconate 3-07 tablet by ity o f 324 mg (38 00:00: mouth [place] mg iron) 00 daily with Medic al tablet breakfast. Branch ascorbic 2022-0 Yes [id number] 500mg Take 500 [facility] acid, 3-07 mg by ity of vitamin C, 00:00: mouth in [place] 500 mg Cap 00 the Medical morning. Branch ferrous 3-0 Yes [id number] 324mg Take 1 [facility] vers gluconate 3-07 tablet by ity o f 324 mg (38 00:00: mouth [place] mg iron) 00 daily with Medic al tablet breakfast. Branch ascorbic 3-0 Yes [id number] 500mg Take 500 [facility] acid, 3-07 mg by ity of vitamin C, 00:00: mouth in [place] 500 mg Cap 00 the Medical morning. Branch ferrous 3-0 Yes [id number] 324mg Take 1 [facility] vers gluconate 3-07 tablet by ity o f 324 mg (38 00:00: mouth [place] mg iron) 00 daily with Medic al tablet breakfast. Branch ascorbic 2022-0 Yes [id number] 500mg Take 500 [facility] acid, 3-07 mg by ity of vitamin C, 00:00: mouth in [place] 500 mg Cap 00 the Medical morning. Branch ferrous 2022-0 Yes [id number] 324mg Take 1 [facility] vers gluconate 3-07 tablet by ity o f 324 mg (38 00:00: mouth [place] mg iron) 00 daily with Medic al tablet breakfast. Branch ascorbic 2022-0 Yes [id number] 500mg Take 500 [facility] acid, 3-07 mg by ity of vitamin C, 00:00: mouth in [place] 500 mg Cap 00 the Medical morning. Branch ferrous 2022-0 Yes [id number] 324mg Take 1 [facility] vers gluconate 3-07 tablet by ity o f 324 mg (38 00:00: mouth [place] mg iron) 00 daily with Medic al tablet breakfast. Branch ascorbic 2022-0 Yes [id number] 500mg Take 500 [facility] acid, 3-07 mg by ity of vitamin C, 00:00: mouth in [place] 500 mg Cap 00 the Medical morning. Branch ferrous 2022-0 Yes [id number] 324mg Take 1 [facility] vers gluconate 3-07 tablet by ity o f 324 mg (38 00:00: mouth [place] mg iron) 00 daily with Medic al tablet breakfast. Branch ascorbic 2022-0 Yes [id number] 500mg Take 500 [facility] acid, 3-07 mg by ity of vitamin C, 00:00: mouth in [place] 500 mg Cap 00 the Medical morning. Branch ferrous 3-0 Yes [id number] 324mg Take 1 [facility] vers gluconate 3-07 tablet by ity o f 324 mg (38 00:00: mouth [place] mg iron) 00 daily with Medic al tablet breakfast. Branch ascorbic 2022-0 Yes [id number] 500mg Take 500 [facility] acid, 3-07 mg by ity of vitamin C, 00:00: mouth in [place] 500 mg Cap 00 the Medical morning. Branch ferrous 3-0 Yes [id number] 324mg Take 1 [facility] vers gluconate 3-07 tablet by ity o f 324 mg (38 00:00: mouth [place] mg iron) 00 daily with Medic al tablet breakfast. Branch ascorbic 3-0 Yes [id number] 500mg Take 500 [facility] acid, 3-07 mg by ity of vitamin C, 00:00: mouth in [place] 500 mg Cap 00 the Medical morning. Branch ferrous 3-0 Yes [id number] 324mg Take 1 [facility] vers gluconate 3-07 tablet by ity o f 324 mg (38 00:00: mouth [place] mg iron) 00 daily with Medic al tablet breakfast. Branch ascorbic 3-0 Yes [id number] 500mg Take 500 [facility] acid, 3-07 mg by ity of vitamin C, 00:00: mouth in [place] 500 mg Cap 00 the Medical morning. Branch ferrous 3-0 Yes [id number] 324mg Take 1 [facility] vers gluconate 3-07 tablet by ity o f 324 mg (38 00:00: mouth [place] mg iron) 00 daily with Medic al tablet breakfast. Branch ascorbic 3-0 Yes [id number] 500mg Take 500 [facility] acid, 3-07 mg by ity of vitamin C, 00:00: mouth in [place] 500 mg Cap 00 the Medical morning. Branch ferrous 3-0 Yes [id number] 324mg Take 1 [facility] vers gluconate 3-07 tablet by ity o f 324 mg (38 00:00: mouth [place] mg iron) 00 daily with Medic al tablet breakfast. Branch ascorbic 3-0 Yes [id number] 500mg Take 500 [facility] acid, 3-07 mg by ity of vitamin C, 00:00: mouth in [place] 500 mg Cap 00 the Medical morning. Branch ferrous 3-0 Yes [id number] 324mg Take 1 [facility] vers gluconate 3-07 tablet by ity o f 324 mg (38 00:00: mouth [place] mg iron) 00 daily with Medic al tablet breakfast. Branch ascorbic 3-0 Yes [id number] 500mg Take 500 [facility] acid, 3-07 mg by ity of vitamin C, 00:00: mouth in [place] 500 mg Cap 00 the Medical morning. Branch ferrous 3-0 Yes [id number] 324mg Take 1 [facility] vers gluconate 3-07 tablet by ity o f 324 mg (38 00:00: mouth [place] mg iron) 00 daily with Medic al tablet breakfast. Branch ascorbic 3-0 Yes [id number] 500mg Take 500 [facility] acid, 3-07 mg by ity of vitamin C, 00:00: mouth in [place] 500 mg Cap 00 the Medical morning. Branch ferrous 3-0 Yes [id number] 324mg Take 1 [facility] vers gluconate 3-07 tablet by ity o f 324 mg (38 00:00: mouth [place] mg iron) 00 daily with Medic al tablet breakfast. Branch ascorbic 2022-0 Yes [id number] 500mg Take 500 [facility] acid, 3-07 mg by ity of vitamin C, 00:00: mouth in [place] 500 mg Cap 00 the Medical morning. Branch ferrous 2022-0 Yes [id number] 324mg Take 1 [facility] vers gluconate 3-07 tablet by ity o f 324 mg (38 00:00: mouth [place] mg iron) 00 daily with Medic al tablet breakfast. Branch ascorbic 2022-0 Yes [id number] 500mg Take 500 [facility] acid, 3-07 mg by ity of vitamin C, 00:00: mouth in [place] 500 mg Cap 00 the Medical morning. Branch ferrous 2022-0 Yes [id number] 324mg Take 1 [facility] vers gluconate 3-07 tablet by ity o f 324 mg (38 00:00: mouth [place] mg iron) 00 daily with Medic al tablet breakfast. Branch ascorbic 0 Yes [id number] 500mg Take 500 [facility] acid, 3-07 mg by ity of vitamin C, 00:00: mouth in [place] 500 mg Cap 00 the Medical morning. Branch ferrous 2022-0 Yes [id number] 324mg Take 1 [facility] vers gluconate 3-07 tablet by ity o f 324 mg (38 00:00: mouth [place] mg iron) 00 daily with Medic al tablet breakfast. Branch ascorbic Yes [id number] 500mg Take 500 [facility] acid, 3-07 mg by ity of vitamin C, 00:00: mouth in [place] 500 mg Cap 00 the Medical morning. Branch aspirin 81 2022- Yes [id number] 81mg Take 1 [facility] mg chewable 06-12 tablet by it y of tablet 00:00: 04:59 mouth [place] 00 :00 daily with Medical breakfast Branch for 30 days. polyethylen 2022- Yes [id number] 17g Take 1 [facility] e glycol 06-12 Packet by ity o f 3350 17 00:00: 04:59 mouth in [place] gram powder 00 :00 the Medical morning Branch for 30 days. sennosides- 2022- Yes [id number] 1{tbl} Take 1 [facility] docusate 3-04 17- tablet by ity o f sodium 00:00: 04:59 mouth in [place] 8.6-50 mg 00 :00 the Medical per tablet morning Branch for 30 days. KCL 20 mEq 2022- Yes [id number] 20meq Take 1 [facility] tablet -07-13 tablet by ity of 00:00: 04:59 mouth in [place] 00 :00 the Medical morning Branch for 30 days. aspirin 81 2022- Yes [id number] 81mg Take 1 [facility] mg chewable 3-07-13 tablet by it y of tablet 00:00: 04:59 mouth [place] 00 :00 daily with Medical breakfast Branch for 30 days. polyethylen 2022- Yes [id number] 17g Take 1 [facility] e glycol -07-13 Packet by ity o f 3350 17 00:00: 04:59 mouth in [place] gram powder 00 :00 the Medical morning Branch for 30 days. sennosides- 2022- Yes [id number] 1{tbl} Take 1 [facility] docusate 3-07-13 tablet by ity o f sodium 00:00: 04:59 mouth in [place] 8.6-50 mg 00 :00 the Medical per tablet morning Branch for 30 days. KCL 20 mEq 2022- Yes [id number] 20meq Take 1 [facility] tablet 06-12 tablet by ity of 00:00: 04:59 mouth in [place] 00 :00 the Medical morning Branch for 30 days. aspirin 81 2022- Yes [id number] 81mg Take 1 [facility] mg chewable -07-13 tablet by it y of tablet 00:00: 04:59 mouth [place] 00 :00 daily with Medical breakfast Branch for 30 days. polyethylen 2022- Yes [id number] 17g Take 1 [facility] e glycol -07-13 Packet by ity o f 3350 17 00:00: 04:59 mouth in [place] gram powder 00 :00 the Medical morning Branch for 30 days. sennosides- 2022- Yes [id number] 1{tbl} Take 1 [facility] docusate 3-04 17- tablet by ity o f sodium 00:00: 04:59 mouth in [place] 8.6-50 mg 00 :00 the Medical per tablet morning Branch for 30 days. KCL 20 mEq 2022- Yes [id number] 20meq Take 1 [facility] tablet -07-13 tablet by ity of 00:00: 04:59 mouth in [place] 00 :00 the Medical morning Branch for 30 days. aspirin 81 2022-0 2022- Yes [id number] 81mg Take 1 [facility] mg chewable 3-04 17- tablet by it y of tablet 00:00: 04:59 mouth [place] 00 :00 daily with Medical breakfast Branch for 30 days. polyethylen 0 2022- Yes [id number] 17g Take 1 [facility] e glycol 3-07-13 Packet by ity o f 3350 17 00:00: 04:59 mouth in [place] gram powder 00 :00 the Medical morning Branch for 30 days. sennosides- 2022- Yes [id number] 1{tbl} Take 1 [facility] docusate 3-04 17- tablet by ity o f sodium 00:00: 04:59 mouth in [place] 8.6-50 mg 00 :00 the Medical per tablet morning Branch for 30 days. KCL 20 mEq 2022- Yes [id number] 20meq Take 1 [facility] tablet -07-13 tablet by ity of 00:00: 04:59 mouth in [place] 00 :00 the Medical morning Branch for 30 days. aspirin 81 2022-0 2022- Yes [id number] 81mg Take 1 [facility] mg chewable -07-13 tablet by it y of tablet 00:00: 04:59 mouth [place] 00 :00 daily with Medical breakfast Branch for 30 days. polyethylen 2022- Yes [id number] 17g Take 1 [facility] e glycol 3-07-13 Packet by ity o f 3350 17 00:00: 04:59 mouth in [place] gram powder 00 :00 the Medical morning Branch for 30 days. sennosides- 2022- Yes [id number] 1{tbl} Take 1 [facility] docusate 3-04 17- tablet by ity o f sodium 00:00: 04:59 mouth in [place] 8.6-50 mg 00 :00 the Medical per tablet morning Branch for 30 days. KCL 20 mEq 2022- Yes [id number] 20meq Take 1 [facility] tablet 06-12 tablet by ity of 00:00: 04:59 mouth in [place] 00 :00 the Medical morning Branch for 30 days. aspirin 81 2022- Yes [id number] 81mg Take 1 [facility] mg chewable -07-13 tablet by it y of tablet 00:00: 04:59 mouth [place] 00 :00 daily with Medical breakfast Branch for 30 days. polyethylen 2022- Yes [id number] 17g Take 1 [facility] e glycol -07-13 Packet by ity o f 3350 17 00:00: 04:59 mouth in [place] gram powder 00 :00 the Medical morning Branch for 30 days. sennosides- 2022- Yes [id number] 1{tbl} Take 1 [facility] docusate 06-12 tablet by ity o f sodium 00:00: 04:59 mouth in [place] 8.6-50 mg 00 :00 the Medical per tablet morning Branch for 30 days. KCL 20 mEq 2022- Yes [id number] 20meq Take 1 [facility] tablet 06-12 tablet by ity of 00:00: 04:59 mouth in [place] 00 :00 the Medical morning Branch for 30 days. aspirin 81 2022- Yes [id number] 81mg Take 1 [facility] mg chewable 06-12 tablet by it y of tablet 00:00: 04:59 mouth [place] 00 :00 daily with Medical breakfast Branch for 30 days. polyethylen 2022- Yes [id number] 17g Take 1 [facility] e glycol 06-12 Packet by ity o f 3350 17 00:00: 04:59 mouth in [place] gram powder 00 :00 the Medical morning Branch for 30 days. sennosides- 2022- Yes [id number] 1{tbl} Take 1 [facility] docusate -07-13 tablet by ity o f sodium 00:00: 04:59 mouth in [place] 8.6-50 mg 00 :00 the Medical per tablet morning Branch for 30 days. KCL 20 mEq 2022- Yes [id number] 20meq Take 1 [facility] tablet 3-04 17- tablet by ity of 00:00: 04:59 mouth in [place] 00 :00 the Medical morning Branch for 30 days. aspirin 81 2022- Yes [id number] 81mg Take 1 [facility] mg chewable 3-07-13 tablet by it y of tablet 00:00: 04:59 mouth [place] 00 :00 daily with Medical breakfast Branch for 30 days. polyethylen 2022- Yes [id number] 17g Take 1 [facility] e glycol -07-13 Packet by ity o f 3350 17 00:00: 04:59 mouth in [place] gram powder 00 :00 the Medical morning Branch for 30 days. sennosides- 2022- Yes [id number] 1{tbl} Take 1 [facility] docusate -07-13 tablet by ity o f sodium 00:00: 04:59 mouth in [place] 8.6-50 mg 00 :00 the Medical per tablet morning Branch for 30 days. KCL 20 mEq 2022- Yes [id number] 20meq Take 1 [facility] tablet 06-12 tablet by ity of 00:00: 04:59 mouth in [place] 00 :00 the Medical morning Branch for 30 days. aspirin 81 2022- Yes [id number] 81mg Take 1 [facility] mg chewable -07-13 tablet by it y of tablet 00:00: 04:59 mouth [place] 00 :00 daily with Medical breakfast Branch for 30 days. polyethylen 2022- Yes [id number] 17g Take 1 [facility] e glycol -07-13 Packet by ity o f 3350 17 00:00: 04:59 mouth in [place] gram powder 00 :00 the Medical morning Branch for 30 days. sennosides- 2022- Yes [id number] 1{tbl} Take 1 [facility] docusate 3-07-13 tablet by ity o f sodium 00:00: 04:59 mouth in [place] 8.6-50 mg 00 :00 the Medical per tablet morning Branch for 30 days. KCL 20 mEq 2022- Yes [id number] 20meq Take 1 [facility] tablet 3-07-13 tablet by ity of 00:00: 04:59 mouth in [place] 00 :00 the Medical morning Branch for 30 days. aspirin 81 2022- Yes [id number] 81mg Take 1 [facility] mg chewable 3-04 17- tablet by it y of tablet 00:00: 04:59 mouth [place] 00 :00 daily with Medical breakfast Branch for 30 days. polyethylen 2022- Yes [id number] 17g Take 1 [facility] e glycol -07-13 Packet by ity o f 3350 17 00:00: 04:59 mouth in [place] gram powder 00 :00 the Medical morning Branch for 30 days. sennosides- 2022- Yes [id number] 1{tbl} Take 1 [facility] docusate 3-04 17- tablet by ity o f sodium 00:00: 04:59 mouth in [place] 8.6-50 mg 00 :00 the Medical per tablet morning Branch for 30 days. KCL 20 mEq 2022- Yes [id number] 20meq Take 1 [facility] tablet -07-13 tablet by ity of 00:00: 04:59 mouth in [place] 00 :00 the Medical morning Branch for 30 days. aspirin 81 2022- Yes [id number] 81mg Take 1 [facility] mg chewable -07-13 tablet by it y of tablet 00:00: 04:59 mouth [place] 00 :00 daily with Medical breakfast Branch for 30 days. polyethylen 2022- Yes [id number] 17g Take 1 [facility] e glycol -07-13 Packet by ity o f 3350 17 00:00: 04:59 mouth in [place] gram powder 00 :00 the Medical morning Branch for 30 days. sennosides- 2022- Yes [id number] 1{tbl} Take 1 [facility] docusate 3-04 17- tablet by ity o f sodium 00:00: 04:59 mouth in [place] 8.6-50 mg 00 :00 the Medical per tablet morning Branch for 30 days. KCL 20 mEq 2022- Yes [id number] 20meq Take 1 [facility] tablet 3-04 17- tablet by ity of 00:00: 04:59 mouth in [place] 00 :00 the Medical morning Branch for 30 days. aspirin 81 2022- Yes [id number] 81mg Take 1 [facility] mg chewable -07-13 tablet by it y of tablet 00:00: 04:59 mouth [place] 00 :00 daily with Medical breakfast Branch for 30 days. polyethylen 2022- Yes [id number] 17g Take 1 [facility] e glycol 06-12 Packet by ity o f 3350 17 00:00: 04:59 mouth in [place] gram powder 00 :00 the Medical morning Branch for 30 days. sennosides- 2022- Yes [id number] 1{tbl} Take 1 [facility] docusate -07-13 tablet by ity o f sodium 00:00: 04:59 mouth in [place] 8.6-50 mg 00 :00 the Medical per tablet morning Branch for 30 days. KCL 20 mEq 2022- Yes [id number] 20meq Take 1 [facility] tablet 06-12 tablet by ity of 00:00: 04:59 mouth in [place] 00 :00 the Medical morning Branch for 30 days. aspirin 81 2022- Yes [id number] 81mg Take 1 [facility] mg chewable 06-12 tablet by it y of tablet 00:00: 04:59 mouth [place] 00 :00 daily with Medical breakfast Branch for 30 days. polyethylen 2022- Yes [id number] 17g Take 1 [facility] e glycol 06-12 Packet by ity o f 3350 17 00:00: 04:59 mouth in [place] gram powder 00 :00 the Medical morning Branch for 30 days. sennosides- 2022- Yes [id number] 1{tbl} Take 1 [facility] docusate 06-12 tablet by ity o f sodium 00:00: 04:59 mouth in [place] 8.6-50 mg 00 :00 the Medical per tablet morning Branch for 30 days. KCL 20 mEq 2022- Yes [id number] 20meq Take 1 [facility] tablet -07-13 tablet by ity of 00:00: 04:59 mouth in [place] 00 :00 the Medical morning Branch for 30 days. aspirin 81 2022- Yes [id number] 81mg Take 1 [facility] mg chewable 3-07-13 tablet by it y of tablet 00:00: 04:59 mouth [place] 00 :00 daily with Medical breakfast Branch for 30 days. polyethylen 2022- Yes [id number] 17g Take 1 [facility] e glycol 3-07-13 Packet by ity o f 3350 17 00:00: 04:59 mouth in [place] gram powder 00 :00 the Medical morning Branch for 30 days. sennosides- 2022- Yes [id number] 1{tbl} Take 1 [facility] docusate 3-04 17- tablet by ity o f sodium 00:00: 04:59 mouth in [place] 8.6-50 mg 00 :00 the Medical per tablet morning Branch for 30 days. KCL 20 mEq 2022- Yes [id number] 20meq Take 1 [facility] tablet 3-07-13 tablet by ity of 00:00: 04:59 mouth in [place] 00 :00 the Medical morning Branch for 30 days. aspirin 81 2022- Yes [id number] 81mg Take 1 [facility] mg chewable 3-07-13 tablet by it y of tablet 00:00: 04:59 mouth [place] 00 :00 daily with Medical breakfast Branch for 30 days. polyethylen 2022- Yes [id number] 17g Take 1 [facility] e glycol -07-13 Packet by ity o f 3350 17 00:00: 04:59 mouth in [place] gram powder 00 :00 the Medical morning Branch for 30 days. sennosides- 2022- Yes [id number] 1{tbl} Take 1 [facility] docusate 3-07-13 tablet by ity o f sodium 00:00: 04:59 mouth in [place] 8.6-50 mg 00 :00 the Medical per tablet morning Branch for 30 days. KCL 20 mEq 2022- Yes [id number] 20meq Take 1 [facility] tablet 3-07-13 tablet by ity of 00:00: 04:59 mouth in [place] 00 :00 the Medical morning Branch for 30 days. aspirin 81 2022- Yes [id number] 81mg Take 1 [facility] mg chewable 3-07-13 tablet by it y of tablet 00:00: 04:59 mouth [place] 00 :00 daily with Medical breakfast Branch for 30 days. polyethylen 2022- Yes [id number] 17g Take 1 [facility] e glycol 3-07-13 Packet by ity o f 3350 17 00:00: 04:59 mouth in [place] gram powder 00 :00 the Medical morning Branch for 30 days. sennosides- 2022- Yes [id number] 1{tbl} Take 1 [facility] docusate 3-04 17- tablet by ity o f sodium 00:00: 04:59 mouth in [place] 8.6-50 mg 00 :00 the Medical per tablet morning Branch for 30 days. KCL 20 mEq 2022- Yes [id number] 20meq Take 1 [facility] tablet 3-04 17- tablet by ity of 00:00: 04:59 mouth in [place] 00 :00 the Medical morning Branch for 30 days. aspirin 81 2022- Yes [id number] 81mg Take 1 [facility] mg chewable -07-13 tablet by it y of tablet 00:00: 04:59 mouth [place] 00 :00 daily with Medical breakfast Branch for 30 days. polyethylen 2022- Yes [id number] 17g Take 1 [facility] e glycol -07-13 Packet by ity o f 3350 17 00:00: 04:59 mouth in [place] gram powder 00 :00 the Medical morning Branch for 30 days. sennosides- 2022- Yes [id number] 1{tbl} Take 1 [facility] docusate 3-07-13 tablet by ity o f sodium 00:00: 04:59 mouth in [place] 8.6-50 mg 00 :00 the Medical per tablet morning Branch for 30 days. KCL 20 mEq 2022- Yes [id number] 20meq Take 1 [facility] tablet 3-04 17- tablet by ity of 00:00: 04:59 mouth in [place] 00 :00 the Medical morning Branch for 30 days. aspirin 81 2022- Yes [id number] 81mg Take 1 [facility] mg chewable 3-07-13 tablet by it y of tablet 00:00: 04:59 mouth [place] 00 :00 daily with Medical breakfast Branch for 30 days. polyethylen 2022- Yes [id number] 17g Take 1 [facility] e glycol -07-13 Packet by ity o f 3350 17 00:00: 04:59 mouth in [place] gram powder 00 :00 the Medical morning Branch for 30 days. sennosides- 2022- Yes [id number] 1{tbl} Take 1 [facility] docusate -07-13 tablet by ity o f sodium 00:00: 04:59 mouth in [place] 8.6-50 mg 00 :00 the Medical per tablet morning Branch for 30 days. KCL 20 mEq 2022- Yes [id number] 20meq Take 1 [facility] tablet 06-12 tablet by ity of 00:00: 04:59 mouth in [place] 00 :00 the Medical morning Branch for 30 days. aspirin 81 2022- Yes [id number] 81mg Take 1 [facility] mg chewable -07-13 tablet by it y of tablet 00:00: 04:59 mouth [place] 00 :00 daily with Medical breakfast Branch for 30 days. polyethylen 2022- Yes [id number] 17g Take 1 [facility] e glycol -07-13 Packet by ity o f 3350 17 00:00: 04:59 mouth in [place] gram powder 00 :00 the Medical morning Branch for 30 days. sennosides- 2022- Yes [id number] 1{tbl} Take 1 [facility] docusate 06-12 tablet by ity o f sodium 00:00: 04:59 mouth in [place] 8.6-50 mg 00 :00 the Medical per tablet morning Branch for 30 days. KCL 20 mEq 2022- Yes [id number] 20meq Take 1 [facility] tablet 06-12 tablet by ity of 00:00: 04:59 mouth in [place] 00 :00 the Medical morning Branch for 30 days. aspirin 81 2022- Yes [id number] 81mg Take 1 [facility] mg chewable -07-13 tablet by it y of tablet 00:00: 04:59 mouth [place] 00 :00 daily with Medical breakfast Branch for 30 days. polyethylen 2022- Yes [id number] 17g Take 1 [facility] e glycol -07-13 Packet by ity o f 3350 17 00:00: 04:59 mouth in [place] gram powder 00 :00 the Medical morning Branch for 30 days. sennosides- 2022- Yes [id number] 1{tbl} Take 1 [facility] docusate 3-04 17- tablet by ity o f sodium 00:00: 04:59 mouth in [place] 8.6-50 mg 00 :00 the Medical per tablet morning Branch for 30 days. KCL 20 mEq 2022- Yes [id number] 20meq Take 1 [facility] tablet 3-04 17- tablet by ity of 00:00: 04:59 mouth in [place] 00 :00 the Medical morning Branch for 30 days. aspirin 81 2022- Yes [id number] 81mg Take 1 [facility] mg chewable 3-04 17- tablet by it y of tablet 00:00: 04:59 mouth [place] 00 :00 daily with Medical breakfast Branch for 30 days. polyethylen 2022- Yes [id number] 17g Take 1 [facility] e glycol 3-07-13 Packet by ity o f 3350 17 00:00: 04:59 mouth in [place] gram powder 00 :00 the Medical morning Branch for 30 days. sennosides- 2022- Yes [id number] 1{tbl} Take 1 [facility] docusate 3-04 17- tablet by ity o f sodium 00:00: 04:59 mouth in [place] 8.6-50 mg 00 :00 the Medical per tablet morning Branch for 30 days. KCL 20 mEq 2022- Yes [id number] 20meq Take 1 [facility] tablet 3-04 17- tablet by ity of 00:00: 04:59 mouth in [place] 00 :00 the Medical morning Branch for 30 days. aspirin 81 0 2022- Yes [id number] 81mg Take 1 [facility] mg chewable 3-04 17- tablet by it y of tablet 00:00: 04:59 mouth [place] 00 :00 daily with Medical breakfast Branch for 30 days. polyethylen 2022- Yes [id number] 17g Take 1 [facility] e glycol 3-04 17- Packet by ity o f 3350 17 00:00: 04:59 mouth in [place] gram powder 00 :00 the Medical morning Branch for 30 days. sennosides- 2022- Yes [id number] 1{tbl} Take 1 [facility] docusate 06-12 tablet by ity o f sodium 00:00: 04:59 mouth in [place] 8.6-50 mg 00 :00 the Medical per tablet morning Branch for 30 days. KCL 20 mEq 2022- Yes [id number] 20meq Take 1 [facility] tablet 06-12 tablet by ity of 00:00: 04:59 mouth in [place] 00 :00 the Medical morning Branch for 30 days. atropine 1 Yes atropine 1 U nivers % 2-28 % eye ity of ophthalmic 17:00: drops [address] Yes Pylera 140 [facility] ronidazole- 2-28 mg-125 ity of tetracyclin 17:00: mg-125 mg [place] (PYLERA) 45 capsule Medica l 140-125-125 Branch mg per capsule atropine 1 Yes atropine 1 U nivers % 2-28 % eye ity of ophthalmic 17:00: drops [address] Yes Pylera 140 [facility] ronidazole- 2-28 mg-125 ity of tetracyclin 17:00: mg-125 mg [place] (PYLERA) 45 capsule Medica l 140-125-125 Branch mg per capsule atropine 1 Yes atropine 1 U nivers % 2-28 % eye ity of ophthalmic 17:00: drops [place] drops [address] [place] [address] Yes Pylera 140 [facility] ronidazole- 2-28 mg-125 ity of tetracyclin 17:00: mg-125 mg [place] (PYLERA) 45 capsule Medica l 140-125-125 Branch mg per capsule atropine 1 Yes atropine 1 U nivers % 2-28 % eye ity of ophthalmic 17:00: drops [place] drops [address] [place] [address] Yes Pylera 140 [facility] ronidazole- 2-28 mg-125 ity of tetracyclin 17:00: mg-125 mg [place] (PYLERA) 45 capsule Medica l 140-125-125 Branch mg per capsule atropine 1 Yes atropine 1 U nivers % 2-28 % eye ity of ophthalmic 17:00: drops [place] drops 45 [facility] [place] bismuth-met Yes Pylera 140 [facility] ronidazole- 2-28 mg-125 ity of tetracyclin 17:00: mg-125 mg [place] (PYLERA) 45 capsule Medica l 140-125-125 Branch mg per capsule atropine 1 Yes atropine 1 U nivers % 2-28 % eye ity of ophthalmic 17:00: drops [place] drops 45 [facility] bismut-met Yes Pylera 140 [facility] ronidazole- 2-28 mg-125 ity of tetracyclin 17:00: mg-125 mg [place] (PYLERA) 45 capsule Medica l 140-125-125 Branch mg per capsule atropine 1 Yes atropine 1 U nivers % 2-28 % eye ity of ophthalmic 17:00: drops [place] drops 45 [facility] bismut-met Yes Pylera 140 [facility] ronidazole- 2-28 mg-125 ity of tetracyclin 17:00: mg-125 mg [place] (PYLERA) 45 capsule Medica l 140-125-125 Branch mg per capsule atropine 1 Yes atropine 1 U nivers % 2-28 % eye ity of ophthalmic 17:00: drops [place] drops 45 [facility] bismut-met Yes Pylera 140 [facility] ronidazole- 2-28 mg-125 ity of tetracyclin 17:00: mg-125 mg [place] (PYLERA) 45 capsule Medica l 140-125-125 Branch mg per capsule atropine 1 Yes atropine 1 U nivers % 2-28 % eye ity of ophthalmic 17:00: drops [place] drops 45 [facility] bismuth-met Yes Pylera 140 [facility] ronidazole- 2-28 mg-125 ity of tetracyclin 17:00: mg-125 mg [place] (PYLERA) 45 capsule Medica l 140-125-125 Branch mg per capsule atropine 1 Yes atropine 1 U nivers % 2-28 % eye ity of ophthalmic 17:00: drops [place] drops 45 [facility] bismuth-met Yes Pylera 140 [facility] ronidazole- 2-28 mg-125 ity of tetracyclin 17:00: mg-125 mg [place] (PYLERA) 45 capsule Medica l 140-125-125 Branch mg per capsule atropine 1 Yes atropine 1 U nivers % 2-28 % eye ity of ophthalmic 17:00: drops [place] drops 45 [facility] Yes Pylera 140 [facility] ronidazole- 2-28 mg-125 ity of tetracyclin 17:00: mg-125 mg [place] (PYLERA) 45 capsule Medica l 140-125-125 Branch mg per capsule atropine 1 Yes atropine 1 U nivers % 2-28 % eye ity of ophthalmic 17:00: drops [place] drops 45 [facility] Yes Pylera 140 [facility] ronidazole- 2-28 mg-125 ity of tetracyclin 17:00: mg-125 mg [place] (PYLERA) 45 capsule Medica l 140-125-125 Branch mg per capsule atropine 1 Yes atropine 1 U nivers % 2-28 % eye ity of ophthalmic 17:00: drops [place] drops 45 [facility] Yes Pylera 140 [facility] ronidazole- 2-28 mg-125 ity of tetracyclin 17:00: mg-125 mg [place] (PYLERA) 45 capsule Medica l 140-125-125 Branch mg per capsule atropine 1 Yes atropine 1 U nivers % 2-28 % eye ity of ophthalmic 17:00: drops [place] drops 45 [facility] Yes Pylera 140 [facility] ronidazole- 2-28 mg-125 ity of tetracyclin 17:00: mg-125 mg [place] (PYLERA) 45 capsule Medica l 140-125-125 Branch mg per capsule atropine 1 Yes atropine 1 U nivers % 2-28 % eye ity of ophthalmic 17:00: drops [place] drops 45 [facility] Yes Pylera 140 [facility] ronidazole- 2-28 mg-125 ity of tetracyclin 17:00: mg-125 mg [place] (PYLERA) 45 capsule Medica l 140-125-125 Branch mg per capsule atropine 1 Yes atropine 1 U nivers % 2-28 % eye ity of ophthalmic 17:00: drops [place] drops 45 [facility] [place] bismuth-met Yes Pylera 140 [facility] ronidazole- 2-28 mg-125 ity of tetracyclin 17:00: mg-125 mg [place] (PYLERA) 45 capsule Medica l 140-125-125 Branch mg per capsule atropine 1 Yes atropine 1 U nivers % 2-28 % eye ity of ophthalmic 17:00: drops [place] drops 45 [facility] bismut-met Yes Pylera 140 [facility] ronidazole- 2-28 mg-125 ity of tetracyclin 17:00: mg-125 mg [place] (PYLERA) 45 capsule Medica l 140-125-125 Branch mg per capsule atropine 1 Yes atropine 1 U nivers % 2-28 % eye ity of ophthalmic 17:00: drops [place] drops 45 [facility] bismut-met Yes Pylera 140 [facility] ronidazole- 2-28 mg-125 ity of tetracyclin 17:00: mg-125 mg [place] (PYLERA) 45 capsule Medica l 140-125-125 Branch mg per capsule atropine 1 Yes atropine 1 U nivers % 2-28 % eye ity of ophthalmic 17:00: drops [place] drops 45 [facility] Pylera 140 [facility] ronidazole- 2-28 mg-125 ity of tetracyclin 17:00: mg-125 mg [place] (PYLERA) 45 capsule Medica l 140-125-125 Branch mg per capsule atropine 1 Yes atropine 1 U nivers % 2-28 % eye ity of ophthalmic 17:00: drops [place] drops 45 [facility] bismuth-met Yes Pylera 140 [facility] ronidazole- 2-28 mg-125 ity of tetracyclin 17:00: mg-125 mg [place] (PYLERA) 45 capsule Medica l 140-125-125 Branch mg per capsule atropine 1 Yes atropine 1 U nivers % 2-28 % eye ity of ophthalmic 17:00: drops [place] drops 45 [facility] bismuth-met Yes Pylera 140 [facility] ronidazole- 2-28 mg-125 ity of tetracyclin 17:00: mg-125 mg [place] (PYLERA) 45 capsule Medica l 140-125-125 Branch mg per capsule atropine 1 Yes atropine 1 U nivers % 2-28 % eye ity of ophthalmic 17:00: drops [place] [facility] P[facility]era 140 [facility] ronidazole- 2-28 mg-125 ity of tetracyclin 17:00: mg-125 mg [place] (PYLERA) 45 capsule Medica l 140-125-125 Branch mg per capsule atropine 1 Yes atropine 1 U nivers % 2-28 % eye ity of ophthalmic 17:00: drops [place] drops 45 [facility] Yes Pylera 140 [facility] ronidazole- 2-28 mg-125 ity of tetracyclin 17:00: mg-125 mg [place] (PYLERA) 45 capsule Medica l 140-125-125 Branch mg per capsule atropine 1 Yes atropine 1 U nivers % 2-28 % eye ity of ophthalmic 17:00: drops [place] drops 45 [facility] Yes Pylera 140 [facility] ronidazole- 2-28 mg-125 ity of tetracyclin 17:00: mg-125 mg [place] (PYLERA) 45 capsule Medica l 140-125-125 Branch mg per capsule atropine 1 Yes atropine 1 U nivers % 2-28 % eye ity of ophthalmic 17:00: drops [place] drops 45 [facility] Yes Pylera 140 [facility] ronidazole- 2-28 mg-125 ity of tetracyclin 17:00: mg-125 mg [place] (PYLERA) 45 capsule Medica l 140-125-125 Branch mg per capsule atropine 1 Yes atropine 1 U nivers % 2-28 % eye ity of ophthalmic 17:00: drops [place] drops 45 [facility] Yes Pylera 140 [facility] ronidazole- 2-28 mg-125 ity of tetracyclin 17:00: mg-125 mg [place] (PYLERA) 45 capsule Medica l 140-125-125 Branch mg per capsule atropine 1 Yes atropine 1 U nivers % 2-28 % eye ity of ophthalmic 17:00: drops [place] drops 45 [facility] [place] bismuth-met Yes Pylera 140 [facility] ronidazole- 2-28 mg-125 ity of tetracyclin 17:00: mg-125 mg [place] (PYLERA) 45 capsule Medica l 140-125-125 Branch mg per capsule atropine 1 Yes atropine 1 U nivers % 2-28 % eye ity of ophthalmic 17:00: drops [place] drops 45 [facility] bismut-met Yes Pylera 140 [facility] ronidazole- 2-28 mg-125 ity of tetracyclin 17:00: mg-125 mg [place] (PYLERA) 45 capsule Medica l 140-125-125 Branch mg per capsule atropine 1 Yes atropine 1 U nivers % 2-28 % eye ity of ophthalmic 17:00: drops [place] drops 45 [facility] Pylera 140 [facility] ronidazole- 2-28 mg-125 ity of tetracyclin 17:00: mg-125 mg [place] (PYLERA) 45 capsule Medica l 140-125-125 Branch mg per capsule atropine 1 Yes atropine 1 U nivers % 2-28 % eye ity of ophthalmic 17:00: drops [place] drops 45 [facility] Pylera 140 [facility] ronidazole- 2-28 mg-125 ity of tetracyclin 17:00: mg-125 mg [place] (PYLERA) 45 capsule Medica l 140-125-125 Branch mg per capsule atropine 1 Yes atropine 1 U nivers % 2-28 % eye ity of ophthalmic 17:00: drops [place] drops 45 [facility] Yes Pylera 140 [facility] ronidazole- 2-28 mg-125 ity of tetracyclin 17:00: mg-125 mg [place] (PYLERA) 45 capsule Medica l 140-125-125 Branch mg per capsule atropine 1 Yes atropine 1 U nivers % 2-28 % eye ity of ophthalmic 17:00: drops [place] drops 45 [facility] Yes Pylera 140 [facility] ronidazole- 2-28 mg-125 ity of tetracyclin 17:00: mg-125 mg [place] (PYLERA) 45 capsule Medica l 140-125-125 Branch mg per capsule atropine 1 Yes atropine 1 U nivers % 2-28 % eye ity of ophthalmic 17:00: drops [place] drops 45 [facility] bismuth-met Yes Pylera 140 [facility] ronidazole- 2-28 mg-125 ity of tetracyclin 17:00: mg-125 mg [place] (PYLERA) 45 capsule Medica l 140-125-125 Branch mg per capsule atropine 1 Yes atropine 1 U nivers % 2-28 % eye ity of ophthalmic 17:00: drops [place] drops 45 [facility] Pylera 140 [facility] ronidazole- 2-28 mg-125 ity of tetracyclin 17:00: mg-125 mg [place] (PYLERA) 45 capsule Medica l 140-125-125 Branch mg per capsule atropine 1 Yes atropine 1 U nivers % 2-28 % eye ity of ophthalmic 17:00: drops [place] drops [facility] ronidazole- 2-28 mg-125 ity of tetracyclin 17:00: mg-125 mg [place] (PYLERA) 45 capsule Medica l 140-125-125 Branch mg per capsule metoprolol 2022- Yes [id number] 25mg Take 1 [facility] succinate 06-11 tablet by ity of XL 25 mg 24 00:00: 04:59 mouth at [place] tablet 00 :00 bedtime Medical for 30 Branch days. furosemide 2022- Yes [id number] 40mg Take 1 [facility] 40 mg 06-11- tablet by ity of tablet 00:00: 04:59 mouth in [place] 00 :00 the Medical morning Branch for 30 days. metoprolol 2022- Yes [id number] 25mg Take 1 [facility] succinate -07-12 tablet by ity of XL 25 mg 24 00:00: 04:59 mouth at [place] tablet 00 :00 bedtime Medical for 30 Branch days. furosemide 2022- Yes [id number] 40mg Take 1 [facility] 40 mg 2-09 07-31 tablet by ity of tablet 00:00: 04:59 mouth in [place] 00 :00 the Medical morning Branch for 30 days. metoprolol 2022- Yes [id number] 25mg Take 1 [facility] succinate 2-09 07-31 tablet by ity of XL 25 mg 24 00:00: 04:59 mouth at [place] tablet 00 :00 bedtime Medical for 30 Branch days. furosemide 2022- Yes [id number] 40mg Take 1 [facility] 40 mg 2-09 07-31 tablet by ity of tablet 00:00: 04:59 mouth in [place] 00 :00 the Medical morning Branch for 30 days. metoprolol 2022- Yes [id number] 25mg Take 1 [facility] succinate 2-09 07- tablet by ity of XL 25 mg 24 00:00: 04:59 mouth at [place] tablet 00 :00 bedtime Medical for 30 Branch days. furosemide 2022- Yes [id number] 40mg Take 1 [facility] 40 mg 2-09 07- tablet by ity of tablet 00:00: 04:59 mouth in [place] 00 :00 the Medical morning Branch for 30 days. metoprolol 2022- Yes [id number] 25mg Take 1 [facility] succinate 2-09 07- tablet by ity of XL 25 mg 24 00:00: 04:59 mouth at [place] tablet 00 :00 bedtime Medical for 30 Branch days. furosemide 2022- Yes [id number] 40mg Take 1 [facility] 40 mg 2-09 07- tablet by ity of tablet 00:00: 04:59 mouth in [place] 00 :00 the Medical morning Branch for 30 days. metoprolol 2022- Yes [id number] 25mg Take 1 [facility] succinate 2-09 07-31 tablet by ity of XL 25 mg 24 00:00: 04:59 mouth at [place] tablet 00 :00 bedtime Medical for 30 Branch days. furosemide 2022- Yes [id number] 40mg Take 1 [facility] 40 mg 2-09 07-31 tablet by ity of tablet 00:00: 04:59 mouth in [place] 00 :00 the Medical morning Branch for 30 days. metoprolol 2022- Yes [id number] 25mg Take 1 [facility] succinate 2-28 -31 tablet by ity of XL 25 mg 24 00:00: 04:59 mouth [place] hr tablet 00 :00 bedtime Medical for 30 Branch days. furosemide 2022- Yes [id number] 40mg Take 1 [facility] 40 mg 2-09 07-31 tablet by ity of tablet 00:00: 04:59 mouth in [place] 00 :00 the Medical morning Branch for 30 days. metoprolol 2022- Yes [id number] 25mg Take 1 [facility] succinate 2-09 07-31 tablet by ity of XL 25 mg 24 00:00: 04:59 mouth [place] hr tablet 00 :00 bedtime Medical for 30 Branch days. furosemide 2022- Yes [id number] 40mg Take 1 [facility] 40 mg 2-09 07- tablet by ity of tablet 00:00: 04:59 mouth in [place] 00 :00 the Medical morning Branch for 30 days. metoprolol 2022- Yes [id number] 25mg Take 1 [facility] succinate 2-09 07- tablet by ity of XL 25 mg 24 00:00: 04:59 mouth [place] hr tablet 00 :00 bedtime Medical for 30 Branch days. furosemide 2022- Yes [id number] 40mg Take 1 [facility] 40 mg 2-09 07- tablet by ity of tablet 00:00: 04:59 mouth in [place] 00 :00 the Medical morning Branch for 30 days. metoprolol 2022- Yes [id number] 25mg Take 1 [facility] succinate 2-09 07-31 tablet by ity of XL 25 mg 24 00:00: 04:59 mouth [place] hr tablet 00 :00 bedtime Medical for 30 Branch days. furosemide 2022- Yes [id number] 40mg Take 1 [facility] 40 mg 2-28 -31 tablet by ity of tablet 00:00: 04:59 mouth in [place] 00 :00 the Medical morning Branch for 30 days. metoprolol 2022- Yes [id number] 25mg Take 1 [facility] succinate 2-28 -31 tablet by ity of XL 25 mg 24 00:00: 04:59 mouth [place] hr tablet 00 :00 bedtime Medical for 30 Branch days. furosemide 2022- Yes [id number] 40mg Take 1 [facility] 40 mg 2-28 -31 tablet by ity of tablet 00:00: 04:59 mouth in [place] 00 :00 the Medical morning Branch for 30 days. metoprolol 2022- Yes [id number] 25mg Take 1 [facility] succinate 2-28 -31 tablet by ity of XL 25 mg 24 00:00: 04:59 mouth [place] hr tablet 00 :00 bedtime Medical for 30 Branch days. furosemide 2022- Yes [id number] 40mg Take 1 [facility] 40 mg 2-28 -31 tablet by ity of tablet 00:00: 04:59 mouth in [place] 00 :00 the Medical morning Branch for 30 days. metoprolol 2022- Yes [id number] 25mg Take 1 [facility] succinate 2-28 -31 tablet by ity of XL 25 mg 24 00:00: 04:59 mouth [place] hr tablet 00 :00 bedtime Medical for 30 Branch days. furosemide 2022- Yes [id number] 40mg Take 1 [facility] 40 mg 2-28 -31 tablet by ity of tablet 00:00: 04:59 mouth in [place] 00 :00 the Medical morning Branch for 30 days. metoprolol 2022- Yes [id number] 25mg Take 1 [facility] succinate 2-28 -31 tablet by ity of XL 25 mg 24 00:00: 04:59 mouth [place] hr tablet 00 :00 bedtime Medical for 30 Branch days. furosemide 2022- Yes [id number] 40mg Take 1 [facility] 40 mg 2-28 -31 tablet by ity of tablet 00:00: 04:59 mouth in [place] 00 :00 the Medical morning Branch for 30 days. metoprolol 2022- Yes [id number] 25mg Take 1 [facility] succinate 2-28 -31 tablet by ity of XL 25 mg 24 00:00: 04:59 mouth [place] hr tablet 00 :00 bedtime Medical for 30 Branch days. furosemide 2022- Yes [id number] 40mg Take 1 [facility] 40 mg 2-28 -31 tablet by ity of tablet 00:00: 04:59 mouth in [place] 00 :00 the Medical morning Branch for 30 days. metoprolol 2022- Yes [id number] 25mg Take 1 [facility] succinate 2-28 -31 tablet by ity of XL 25 mg 24 00:00: 04:59 mouth [place] hr tablet 00 :00 bedtime Medical for 30 Branch days. furosemide 2022- Yes [id number] 40mg Take 1 [facility] 40 mg 2-09 07-31 tablet by ity of tablet 00:00: 04:59 mouth in [place] 00 :00 the Medical morning Branch for 30 days. metoprolol 2022- Yes [id number] 25mg Take 1 [facility] succinate 2-09 07-31 tablet by ity of XL 25 mg 24 00:00: 04:59 mouth [place] hr tablet 00 :00 bedtime Medical for 30 Branch days. furosemide 2022- Yes [id number] 40mg Take 1 [facility] 40 mg 2-09 07- tablet by ity of tablet 00:00: 04:59 mouth in [place] 00 :00 the Medical morning Branch for 30 days. metoprolol 2022- Yes [id number] 25mg Take 1 [facility] succinate 2-09 07- tablet by ity of XL 25 mg 24 00:00: 04:59 mouth [place] hr tablet 00 :00 bedtime Medical for 30 Branch days. furosemide 2022- Yes [id number] 40mg Take 1 [facility] 40 mg 2-09 07- tablet by ity of tablet 00:00: 04:59 mouth in [place] 00 :00 the [facility] morning Branch for 30 days. metoprolol 2022- Yes [id number] 25mg Take 1 [facility] succinate 2-09 07-31 tablet by ity of XL 25 mg 24 00:00: 04:59 mouth [place] hr tablet 00 :00 bedtime Medical for 30 Branch days. furosemide 2022- Yes [id number] 40mg Take 1 [facility] 40 mg 2-28 -31 tablet by ity of tablet 00:00: 04:59 mouth in [place] 00 :00 the Medical morning Branch for 30 days. metoprolol 2022- Yes [id number] 25mg Take 1 [facility] succinate 2-28 03-31 tablet by ity of XL 25 mg 24 00:00: 04:59 mouth [place] hr tablet 00 :00 bedtime Medical for 30 Branch days. furosemide 2022- Yes [id number] 40mg Take 1 [facility] 40 mg 06-11 tablet by ity of tablet 00:00: 04:59 mouth in [place] 00 :00 the Medical morning Branch for 30 days. metoprolol 2022- Yes [id number] 25mg Take 1 [facility] succinate 06-11 tablet by ity of XL 25 mg 24 00:00: 04:59 mouth [place] hr tablet 00 :00 bedtime Medical for 30 Branch days. furosemide 2022- Yes [id number] 40mg Take 1 [facility] 40 mg 06-11 tablet by ity of tablet 00:00: 04:59 mouth in [place] 00 :00 the Medical morning Branch for 30 days. metoprolol 2022- Yes [id number] 25mg Take 1 [facility] succinate 06-11 tablet by ity of XL 25 mg 24 00:00: 04:59 mouth [place] hr tablet 00 :00 bedtime Medical for 30 Branch days. furosemide 2022- Yes [id number] 40mg Take 1 [facility] 40 mg 06-11 tablet by ity of tablet 00:00: 04:59 mouth in [place] 00 :00 the Medical morning Branch for [...] at 0900, Until Discontinu ed, Routine furosemide 2022-0 Yes 40mg 40 mg, Unive rs (LASIX) 2- Slow IV ity of injection 15:00: Push, [place] 40 mg 00 DAILY, Medical First dose Branch (after last modificati on) on [place] 06/09/22 at 0900, Until Discontinu ed, DEANGELO polyethylen 0 Yes 17g 17 g, Unive rs e glycol 06-09 Oral, ity of 3350 powder 15:00: DAILY, [place] 17 g 00 First dose Medical on [place] Branch 06/09/22 at 0900, Until Discontinu ed, Routine metoprolol 0 Yes 25mg 25 mg, Unive rs succinate 06-09 Oral, QHS, ity of XL (TOPROL 03:00: First dose [place] XL) tablet 00 (after Medical 25 mg last Branch modificati on) on [facility] 06/08/22 at 2100, Until Discontinu ed, DEANGELO pantoprazol 0 Yes 40mg 40 mg, Univ ers e 06-09 Oral, ity of (PROTONIX) 01:15: DAILY, [place] EC tablet 00 First dose Medi akash 40 mg on [facility] Branch 06/08/22 at 1915, Until Discontinu ed, Routine sodium 0 Yes 1{spray 1 [place], Univ ers chloride 06-09 } Nasal, ity of (OCEAN MIST 01:11: PRN, [place] NASAL) 0.65 32 Starting Medi akash % nasal on [facility] Branch spray 1 06/08/22 at [place] 1911, Until Discontinu ed, Routine, dry nose lactulose 0 2022- No 30mL 30 mL, Unive rs (CEPHULAC) 06-08 02-25 Oral, ity of solution 30 16:45: 16:07 ONCE, 1 [place] mL 00 :00 dose, On Medical [facility] Branch 06/08/22 at 1045, Routine sennosides- 0 Yes 1{tbl} 1 tablet, Univers docusate 06-08 Oral, ity of sodium 16:00: DAILY, [place] (SENOKOT-S) 00 First dose Me dical 8.6-50 mg on [facility] Branch per tablet 06/08/22 at 1 tablet 1000, Until Discontinu ed, Routine rosuvastati 0 Yes 20mg 20 mg, Univ ers n (CRESTOR) - Oral, QHS, it y of tablet 20 03:00: First dose [place] mg 00 on Fri Medical 06/07/22 at Branch 2100, Until Discontinu ed, Routine meloxicam 0 Yes 7.5mg 7.5 mg, [facility] ers (MOBIC) 06-07 Oral, ity of tablet 7.5 15:00: DAILY, [place] mg 00 First dose Medical on Fri Branch 06/07/22 at 0900, Until Discontinu ed, Routine codeine-gua 0 Yes 10mL 10 mL, [facility] ers ifenesin 06-07 Oral, ity of (ROBITUSSIN 08:38: TIDPRN, [place] as AC) 10-100 48 Starting Medic al mg/5 mL on Fri Branch oral 06/07/22 at solution 10 0238, mL Until Discontinu ed, Routine, Cough aspirin 2022-0 Yes 81mg 81 mg, [facility] chewable 06-07 Oral, QAM ity of tablet 81 07:00: WITH [place] mg 00 BREAKFAST, Medical First dose Branch on 06/07/22 at 0100, Until Discontinu ed, Routine insulin Yes 5U 5 Units, Univer s glargine 06-07 Subcutaneo ity o f (LANTUS 07:00: us, QHS, [place] U-100) 00 First dose Medical injection 5 on Fri Branch Units 06/07/22 at 0100, Until Discontinu ed, Routine furosemide 2022- No 40mg 40 mg, [facility] ers (LASIX) 06-0726 Slow IV ity of injection 07:00: 04:16 Push, [place] 40 mg 00 :29 Q12H, Medical First dose Branch (after last reorder) on Fri06/07/22 at 0100, Until Discontinu ed, DEANGELO metoprolol 0 2022- No 50mg 50 mg, [facility] ers succinate 06-07-25 Oral, QHS, ity of XL (TOPROL 07:00: 16:47 First dose [place] XL) tablet 00 :40 on Fri Medical 50 mg 06/07/22 at Branch 0100, Until Discontinu ed, DEANGELO Sliding 2022-0 Yes Subcutaneo [facility] ers Scale 2-23 us, TID ity of [...] 06-06 Oral, ity of (TYLENOL) 20:40: Q6HPRN, [place] tablet 650 17 Starting Medic al mg [...] 100 mg [place] 01 :00 capsule [facility] Branch nirmatrelvi 2022- No [id number] 2{tbl} Take 2 [facility] r-ritonavir 06-01 tablets by i ty of (PAXLOVID, 00:00: 00:00 mouth in [place] EUA,) 00 :00 the Medical 150-100 mg morning Branch tablet and 2 tablets in the evening. Do all this for 5 days. nirmatrelvi 2022-0 2022- No [id number] 2{tbl} Take 2 [facility] r-ritonavir 2-18 02-24 tablets by i ty of (PAXLOVID, 00:00: 05:59 mouth in [place] EUA,) 00 :00 the Medical 150-100 mg morning Branch tablet and 2 tablets in the evening. Do all this for 5 days. nirmatrelvi 2022-2022- No [id number] 2{tbl} Take 2 [facility] r-ritonavir 2-18 02-24 tablets by i ty of (PAXLOVID, 00:00: 05:59 mouth in [place] EUA,) 00 :00 the Medical 150-100 mg morning Branch tablet and 2 tablets in the evening. Do all this for 5 days. dapaglifloz 2022-0 Yes [id number] TAKE 1 [facility] in 2-14 TABLET BY ity of (FARXIGA) 00:00: MOUTH [place] 10 mg 00 DAILY. Medical tablet STOP Branch JARDIANCE. dapaglifloz 3-0 Yes [id number] TAKE 1 [facility] in 2-14 TABLET BY ity of (FARXIGA) 00:00: MOUTH [place] 10 mg 00 DAILY. Medical tablet STOP Branch JARDIANCE. dapaglifloz 3-0 Yes [id number] TAKE 1 [facility] in 2-14 TABLET BY ity of (FARXIGA) 00:00: MOUTH [place] 10 mg 00 DAILY. Medical tablet STOP Branch JARDIANCE. dapaglifloz 2022-0 3- No [id number] TAKE 1 [facility] in 2-14 -28 TABLET BY ity of (FARXIGA) 00:00: 00:00 MOUTH [place] 10 mg 00 :00 DAILY. Medical tablet STOP Branch JARDIANCE. magnesium 2022-0 Yes [id number] TAKE 2 U nivers oxide 400 2-08 TABLETS BY ity of mg (241.3 00:00: MOUTH 4 [place] mg 00 TIMES Medical magnesium) DAILY Branch tablet Insulin 2022-0 Yes [id number] Use as Univ ers [place], 2-08 directed ity of Disposable, 00:00: once daily [place] (RELION PEN 00 to inject Med ical NEEDLES) 32 insulin; Lee ch gauge x E11.65 32" Ndle glipiZIDE 2022-0 Yes [id number] 10mg Take 1 Un wendy XL 10 mg 24 2-08 tablet by ity of hr tablet 00:00: mouth [place] 00 daily with Medical breakfast. Branch STOP GLIMEPIRID E. magnesium Yes [id number] TAKE 2 U nivers oxide 400 2-08 TABLETS BY ity of mg (241.3 00:00: MOUTH 4 [place] mg 00 TIMES Medical magnesium) DAILY Branch tablet Insulin Yes [id number] Use as Univ ers [place], 2-08 directed ity of Disposable, 00:00: once daily [place] (RELION PEN 00 to inject Med ical NEEDLES) 32 insulin; Bran ch gauge x E11.65 " Ndle glipiZIDE 0 Yes [id number] 10mg Take 1 Un wendy XL 10 mg 24 2-08 tablet by ity of hr tablet 00:00: mouth [place] 00 daily with Medical breakfast. Branch STOP GLIMEPIRID E. magnesium Yes [id number] TAKE 2 U nivers oxide 400 2-08 TABLETS BY ity of mg (241.3 00:00: MOUTH 4 [place] mg 00 TIMES Medical magnesium) DAILY Branch tablet Insulin Yes [id number] Use as Univ ers [place], 2-08 directed ity of Disposable, 00:00: once daily [place] (RELION PEN 00 to inject Med ical NEEDLES) 32 insulin; Bran ch gauge x E11.65 32" Ndle glipiZIDE 2022-0 Yes [id number] 10mg Take 1 Un wendy XL 10 mg 24 2-08 tablet by ity of hr tablet 00:00: mouth [place] 00 daily with Medical breakfast. Branch STOP GLIMEPIRID E. magnesium 0 Yes [id number] TAKE 2 U nivers oxide 400 2-08 TABLETS BY ity of mg (241.3 00:00: MOUTH 4 [place] mg 00 TIMES Medical magnesium) DAILY Branch tablet Insulin 0 Yes [id number] Use as Univ ers [place], 2-08 directed ity of Disposable, 00:00: once daily [place] (RELION PEN 00 to inject Med ical NEEDLES) 32 insulin; Bran ch gauge x E11.65 32" Ndle glipiZIDE Yes [id number] 10mg Take 1 Un wendy XL 10 mg 24 2-08 tablet by ity of hr tablet 00:00: mouth [place] 00 daily with Medical breakfast. Branch STOP GLIMEPIRID E. magnesium Yes [id number] TAKE 2 U nivers oxide 400 2-08 TABLETS BY ity of mg (241.3 00:00: MOUTH 4 [place] mg 00 TIMES Medical magnesium) DAILY Branch tablet Insulin Yes [id number] Use as Univ ers [place], 2-08 directed ity of Disposable, 00:00: once daily [place] (RELION PEN 00 to inject Med ical NEEDLES) 32 insulin; Lee ch gauge x E11.65 32" Ndle glipiZIDE Yes [id number] 10mg Take 1 Un wendy XL 10 mg 24 2-08 tablet by ity of hr tablet 00:00: mouth [place] 00 daily with Medical breakfast. Branch STOP GLIMEPIRID E. magnesium Yes [id number] TAKE 2 U nivers oxide 400 2-08 TABLETS BY ity of mg (241.3 00:00: MOUTH 4 [place] mg 00 TIMES Medical magnesium) DAILY Branch tablet Insulin Yes [id number] Use as Univ ers [place], 2-08 directed ity of Disposable, 00:00: once daily [place] (RELION PEN 00 to inject Med ical NEEDLES) 32 insulin; Lee [place] gauge x E11.65 " Ndle glipiZIDE Yes [id number] 10mg Take 1 Un wendy XL 10 mg 24 2-08 tablet by ity of hr tablet 00:00: mouth [place] 00 daily with Medical breakfast. Branch STOP GLIMEPIRID E. magnesium Yes [id number] TAKE 2 U nivers oxide 400 2-08 TABLETS BY ity of mg (241.3 00:00: MOUTH 4 [place] mg 00 TIMES Medical magnesium) DAILY Branch tablet Insulin Yes [id number] Use as Univ ers [place], 2-08 directed ity of Disposable, 00:00: once daily [place] (RELION PEN 00 to inject Med ical NEEDLES) 32 insulin; Lee ch gauge x E11.65 32" Ndle glipiZIDE 2022-0 Yes [id number] 10mg Take 1 Un [facility]end[facility] XL 10 mg 24 2-08 tablet by ity of hr tablet 00:00: mouth [place] 00 daily with Medical breakfast. Branch STOP GLIMEPIRID E. magnesium 0 Yes [id number] TAKE 2 U nivers oxide 400 2-08 TABLETS BY ity of mg (241.3 00:00: MOUTH 4 [place] mg 00 TIMES Medical magnesium) DAILY Branch tablet Insulin 0 Yes [id number] Use as Univ ers [place], 2-08 directed ity of Disposable, 00:00: once daily [place] (RELION PEN 00 to inject Med ical NEEDLES) 32 insulin; Bran ch gauge x E11.65 " Ndle glipiZIDE 2022-0 Yes [id number] 10mg Take 1 Un wend[facility] XL 10 mg 24 2-08 tablet by ity of hr tablet 00:00: mouth [place] 00 daily with Medical breakfast. Branch STOP GLIMEPIRID E. magnesium Yes [id number] TAKE 2 U nivers oxide 400 2-08 TABLETS BY ity of mg (241.3 00:00: MOUTH 4 [place] mg 00 TIMES Medical magnesium) DAILY Branch tablet Insulin Yes [id number] Use as Univ ers [place], 2-08 directed ity of Disposable, 00:00: once daily [place] (RELION PEN 00 to inject Med ical NEEDLES) 32 insulin; Bran ch gauge x E11.65 " Ndle glipiZIDE 2022-0 Yes [id number] 10mg Take 1 Un wend[place] XL 10 mg 24 2-08 tablet by ity of hr tablet 00:00: mouth [place] 00 daily with Medical breakfast. Branch STOP GLIMEPIRID E. magnesium 0 Yes [id number] TAKE 2 U nivers oxide 400 2-08 TABLETS BY ity of mg (241.3 00:00: MOUTH 4 [place] mg 00 TIMES Medical magnesium) DAILY Branch tablet Insulin 0 Yes [id number] Use as Univ ers [place], 2-08 directed ity of Disposable, 00:00: once daily [place] (RELION PEN 00 to inject Med ical NEEDLES) 32 insulin; Bran ch gauge x E11.65 32" Ndle glipiZIDE 2022-0 Yes [id number] 10mg Take 1 Un [place] XL 10 mg 24 2-08 tablet by ity of hr tablet 00:00: mouth [place] 00 daily with Medical breakfast. Branch STOP GLIMEPIRID E. magnesium Yes [id number] TAKE 2 U nivers oxide 400 2-08 TABLETS BY ity of mg (241.3 00:00: MOUTH 4 [place] mg 00 TIMES Medical magnesium) DAILY Branch tablet Insulin Yes [id number] Use as Univ ers [place], 2-08 directed ity of Disposable, 00:00: once daily [place] (RELION PEN 00 to inject Med ical NEEDLES) 32 insulin; Bran ch gauge x E11.65 32" Ndle glipiZIDE Yes [id number] 10mg Take 1 Un [place] XL 10 mg 24 2-08 tablet by ity of hr tablet 00:00: mouth [place] 00 daily with Medical breakfast. Branch STOP GLIMEPIRID E. magnesium Yes [id number] TAKE 2 U nivers oxide 400 2-08 TABLETS BY ity of mg (241.3 00:00: MOUTH 4 [place] mg 00 TIMES Medical magnesium) DAILY Branch tablet Insulin Yes [id number] Use as Univ ers [place], 2-08 directed ity of Disposable, 00:00: once daily [place] (RELION PEN 00 to inject Med ical NEEDLES) 32 insulin; Bran ch gauge x E11.65 32" Ndle glipiZIDE Yes [id number] 10mg Take 1 Un [place] XL 10 mg 24 2-08 tablet by ity of hr tablet 00:00: mouth [place] 00 daily with Medical breakfast. Branch STOP GLIMEPIRID E. magnesium Yes [id number] TAKE 2 U nivers oxide 400 2-08 TABLETS BY ity of mg (241.3 00:00: MOUTH 4 [place] mg 00 TIMES Medical magnesium) DAILY Branch tablet Insulin Yes [id number] Use as Univ ers [place], 2-08 directed ity of Disposable, 00:00: once daily [place] (RELION PEN 00 to inject Med ical NEEDLES) 32 insulin; Bran ch gauge x E11.65 32" Ndle glipiZIDE Yes [id number] 10mg Take 1 Un [place] XL 10 mg 24 2-08 tablet by ity of hr tablet 00:00: mouth [place] 00 daily with Medical breakfast. Branch STOP GLIMEPIRID E. magnesium Yes [id number] TAKE 2 U nivers oxide 400 2-08 TABLETS BY ity of mg (241.3 00:00: MOUTH 4 [place] mg 00 TIMES Medical magnesium) DAILY Branch tablet Insulin Yes [id number] Use as Univ ers [place], 2-08 directed ity of Disposable, 00:00: once daily [place] (RELION PEN 00 to inject Med ical NEEDLES) 32 insulin; Bran ch gauge x E11.65 5/32" Ndle glipiZIDE Yes [id number] 10mg Take 1 Un [facility] XL 10 mg 24 2-08 tablet by ity of hr tablet 00:00: mouth [place] 00 daily with Medical breakfast. Branch STOP GLIMEPIRID E. magnesium Yes [id number] TAKE 2 U nivers oxide 400 2-08 TABLETS BY ity of mg (241.3 00:00: MOUTH 4 [place] mg 00 TIMES Medical magnesium) DAILY Branch tablet Insulin Yes [id number] Use as Univ ers [place], 2-08 directed ity of Disposable, 00:00: once daily [place] (RELION PEN 00 to inject Med ical NEEDLES) 32 insulin; Bran ch gauge x E11.65 32" Ndle glipiZIDE Yes [id number] 10mg Take 1 Un [place] XL 10 mg 24 2-08 tablet by ity of hr tablet 00:00: mouth [place] 00 daily with Medical breakfast. Branch STOP GLIMEPIRID E. magnesium Yes [id number] TAKE 2 U nivers oxide 400 2-08 TABLETS BY ity of mg (241.3 00:00: MOUTH 4 [place] mg 00 TIMES Medical magnesium) DAILY Branch tablet Insulin Yes [id number] Use as Univ ers [place], 2-08 directed ity of Disposable, 00:00: once daily [place] (RELION PEN 00 to inject Med ical NEEDLES) 32 insulin; Bran ch gauge x E11.65 5/32" Ndle glipiZIDE Yes [id number] 10mg Take 1 Un [facility] XL 10 mg 24 2-08 tablet by ity of hr tablet 00:00: mouth [place] 00 daily with Medical breakfast. Branch STOP GLIMEPIRID E. magnesium Yes [id number] TAKE 2 U nivers oxide 400 2-08 TABLETS BY ity of mg (241.3 00:00: MOUTH 4 [place] mg 00 TIMES Medical magnesium) DAILY Branch tablet Insulin Yes [id number] Use as Univ ers [place], 2-08 directed ity of Disposable, 00:00: once daily [place] (RELION PEN 00 to inject Med ical NEEDLES) 32 insulin; Bran ch gauge x E11.65 5/32" Ndle glipiZIDE Yes [id number] 10mg Take 1 Un [place] XL 10 mg 24 2-08 tablet by ity of hr tablet 00:00: mouth [place] 00 daily with Medical breakfast. Branch STOP GLIMEPIRID E. magnesium Yes [id number] TAKE 2 U nivers oxide 400 2-08 TABLETS BY ity of mg (241.3 00:00: MOUTH 4 [place] mg 00 TIMES Medical magnesium) DAILY Branch tablet Insulin Yes [id number] Use as Univ ers [place], 2-08 directed ity of Disposable, 00:00: once daily [place] (RELION PEN 00 to inject Med ical NEEDLES) 32 insulin; Bran ch gauge x E11.65 32" Ndle glipiZIDE Yes [id number] 10mg Take 1 [facility] [place] XL 10 mg 24 2-08 tablet by ity of hr tablet 00:00: mouth [place] 00 daily with Medical breakfast. Branch STOP GLIMEPIRID E. magnesium Yes [id number] TAKE 2 U nivers oxide 400 2-08 TABLETS BY ity of mg (241.3 00:00: MOUTH 4 [place] mg 00 TIMES Medical magnesium) DAILY Branch tablet Insulin Yes [id number] Use as Univ ers [place], 2-08 directed ity of Disposable, 00:00: once daily [place] (RELION PEN 00 to inject Med ical NEEDLES) 32 insulin; Bran ch gauge x E11.65 5/32" Ndle glipiZIDE Yes [id number] 10mg Take 1 Un [place] XL 10 mg 24 2-08 tablet by ity of hr tablet 00:00: mouth [place] 00 daily with Medical breakfast. Branch STOP GLIMEPIRID E. magnesium Yes [id number] TAKE 2 U nivers oxide 400 2-08 TABLETS BY ity of mg (241.3 00:00: MOUTH 4 [place] mg 00 TIMES Medical magnesium) DAILY Branch tablet Insulin Yes [id number] Use as Univ ers [place], 2-08 directed ity of Disposable, 00:00: once daily [place] (RELION PEN 00 to inject Med ical NEEDLES) 32 insulin; Lee ch gauge x E11.65 " Ndle glipiZIDE 2022-0 Yes [id number] 10mg Take 1 Un [place] XL 10 mg 24 2-08 tablet by ity of hr tablet 00:00: mouth [place] 00 daily with Medical breakfast. Branch STOP GLIMEPIRID E. magnesium 0 Yes [id number] TAKE 2 U nivers oxide 400 2-08 TABLETS BY ity of mg (241.3 00:00: MOUTH 4 [place] mg 00 TIMES Medical magnesium) DAILY Branch tablet Insulin 0 Yes [id number] Use as Univ ers [place], 2-08 directed ity of Disposable, 00:00: once daily [place] (RELION PEN 00 to inject Med ical NEEDLES) 32 insulin; Lee ch gauge x E11.65 " Ndle glipiZIDE 2022-0 Yes [id number] 10mg Take 1 [facility] [place] XL 10 mg 24 2-08 tablet by ity of hr tablet 00:00: mouth [place] 00 daily with Medical breakfast. Branch STOP GLIMEPIRID E. magnesium 0 Yes [id number] TAKE 2 U nivers oxide 400 2-08 TABLETS BY ity of mg (241.3 00:00: MOUTH 4 [place] mg 00 TIMES Medical magnesium) DAILY Branch tablet Insulin 0 Yes [id number] Use as Univ ers [place], 2-08 directed ity of Disposable, 00:00: once daily [place] (RELION PEN 00 to inject Med ical NEEDLES) 32 insulin; Lee ch gauge x E11.65 " Ndle glipiZIDE 2022-0 Yes [id number] 10mg Take 1 [facility] [place] XL 10 mg 24 2-08 tablet by ity of hr tablet 00:00: mouth [place] 00 daily with Medical breakfast. Branch STOP GLIMEPIRID E. magnesium 0 Yes [id number] TAKE 2 U nivers oxide 400 2-08 TABLETS BY ity of mg (241.3 00:00: MOUTH 4 [place] mg 00 TIMES Medical magnesium) DAILY Branch tablet Insulin 0 Yes [id number] Use as Univ ers [place], 2-08 directed ity of Disposable, 00:00: once daily [place] (RELION PEN 00 to inject Med ical NEEDLES) 32 insulin; Bran ch gauge x E11.65 5/32" Ndle glipiZIDE Yes [id number] 10mg Take 1 Un [place] XL 10 mg 24 2-08 tablet by ity of hr tablet 00:00: mouth [place] 00 daily with Medical breakfast. Branch STOP GLIMEPIRID E. magnesium Yes [id number] TAKE 2 U nivers oxide 400 2-08 TABLETS BY ity of mg (241.3 00:00: MOUTH 4 [place] mg 00 TIMES Medical magnesium) DAILY Branch tablet Insulin Yes [id number] Use as Univ ers [place], 2-08 directed ity of Disposable, 00:00: once daily [place] (RELION PEN 00 to inject Med ical NEEDLES) 32 insulin; Bran ch gauge x E11.65 532" Ndle glipiZIDE Yes [id number] 10mg Take 1 Un [place] XL 10 mg 24 2-08 tablet by ity of hr tablet 00:00: mouth [place] 00 daily with Medical breakfast. Branch STOP GLIMEPIRID E. magnesium Yes [id number] TAKE 2 U nivers oxide 400 2-08 TABLETS BY ity of mg (241.3 00:00: MOUTH 4 [place] mg 00 TIMES Medical magnesium) DAILY Branch tablet Insulin Yes [id number] Use as Univ ers [place], 2-08 directed ity of Disposable, 00:00: once daily [place] (RELION PEN 00 to inject Med ical NEEDLES) 32 insulin; Bran ch gauge x E11.65 32" Ndle glipiZIDE 2022- Yes [id number] 10mg Take 1 Un [place] XL 10 mg 24 2-08 tablet by ity of hr tablet 00:00: mouth [place] 00 daily with Medical breakfast. Branch STOP GLIMEPIRID E. magnesium Yes [id number] TAKE 2 U nivers oxide 400 2-08 TABLETS BY ity of mg (241.3 00:00: MOUTH 4 [place] mg 00 TIMES Medical magnesium) DAILY Branch tablet Insulin Yes [id number] Use as Univ ers [place], 2-08 directed ity of Disposable, 00:00: once daily [place] (RELION PEN 00 to inject Med ical NEEDLES) 32 insulin; Bran ch gauge x E11.65 532" Ndle glipiZIDE 2022-0 Yes [id number] 10mg Take 1 Un [facility] XL 10 mg 24 2-08 tablet by ity of hr tablet 00:00: mouth [place] 00 daily with Medical breakfast. Branch STOP GLIMEPIRID E. magnesium 2022-0 Yes [id number] TAKE 2 U nivers oxide 400 2-08 TABLETS BY ity of mg (241.3 00:00: MOUTH 4 [place] mg 00 TIMES Medical magnesium) DAILY Branch tablet Insulin 2022-0 Yes [id number] Use as [facility] [place], 2-08 directed ity of Disposable, 00:00: once daily [place] (RELION PEN 00 to inject Med ical NEEDLES) 32 insulin; Bran ch gauge x E11.65 32" Ndle glipiZIDE 2022-0 Yes [id number] 10mg Take 1 Un wendy XL 10 mg 24 2-08 tablet by ity of hr tablet 00:00: mouth [place] 00 daily with Medical breakfast. Branch STOP GLIMEPIRID E. magnesium 2022-0 Yes [id number] TAKE 2 U nivers oxide 400 2-08 TABLETS BY ity of mg (241.3 00:00: MOUTH 4 [place] mg 00 TIMES Medical magnesium) DAILY Branch tablet Insulin 2022-0 Yes [id number] Use as [facility] [place], 2-08 directed ity of Disposable, 00:00: once daily [place] (RELION PEN 00 to inject Med ical NEEDLES) 32 insulin; Bran ch gauge x E11.65 " Ndle glipiZIDE 2022-0 Yes [id number] 10mg Take 1 [facility] w[facility] XL 10 mg 24 2-08 tablet by ity of hr tablet 00:00: mouth [place] 00 daily with Medical breakfast. Branch STOP GLIMEPIRID E. magnesium 2022-0 Yes [id number] TAKE 2 U nivers oxide 400 2-08 TABLETS BY ity of mg (241.3 00:00: MOUTH 4 [place] mg 00 TIMES Medical magnesium) DAILY Branch tablet Insulin 2022-0 Yes [id number] Use as [facility] [place], 2-08 directed ity of Disposable, 00:00: once daily [place] (RELION PEN 00 to inject Med ical NEEDLES) 32 insulin; Bran ch gauge x E11.65 32" Ndle glipiZIDE 2022-0 Yes [id number] 10mg Take 1 [facility] XL 10 mg 24 2-08 tablet by ity of hr tablet 00:00: mouth [place] 00 daily with Medical breakfast. Branch STOP GLIMEPIRID E. magnesium Yes [id number] TAKE 2 U nivers oxide 400 2-08 TABLETS BY ity of mg (241.3 00:00: MOUTH 4 [place] mg 00 TIMES Medical magnesium) DAILY Branch tablet Insulin Yes [id number] Use as [facility] [place], 2-08 directed ity of Disposable, 00:00: once daily [place] (RELION PEN 00 to inject Med ical NEEDLES) 32 insulin; Bran ch gauge x E11.65 32" Ndle glipiZIDE Yes [id number] 10mg Take 1 [facility] XL 10 mg 24 2-08 tablet by ity of hr tablet 00:00: mouth [place] 00 daily with Medical breakfast. Branch STOP GLIMEPIRID E. magnesium Yes [id number] TAKE 2 U nivers oxide 400 2-08 TABLETS BY ity of mg (241.3 00:00: MOUTH 4 [place] mg 00 TIMES Medical magnesium) DAILY Branch tablet Insulin Yes [id number] Use as [facility] [place], 2-08 directed ity of Disposable, 00:00: once daily [place] (RELION PEN 00 to inject Med ical NEEDLES) 32 insulin; Bran ch gauge x E11.65 " Ndle glipiZIDE Yes [id number] 10mg Take 1 [facility] w[facility] XL 10 mg 24 2-08 tablet by ity of hr tablet 00:00: mouth [place] 00 daily with Medical breakfast. Branch STOP GLIMEPIRID E. magnesium Yes [id number] TAKE 2 U nivers oxide 400 2-08 TABLETS BY ity of mg (241.3 00:00: MOUTH 4 [place] mg 00 TIMES Medical magnesium) DAILY Branch tablet Insulin Yes [id number] Use as [facility] [place], 2-08 directed ity of Disposable, 00:00: once daily [place] (RELION PEN 00 to inject Med ical NEEDLES) 32 insulin; Bran ch gauge x E11.65 32" Ndle glipiZIDE 0 Yes [id number] 10mg Take 1 [facility] XL 10 mg 24 2-08 tablet by ity of hr tablet 00:00: mouth [place] 00 daily with Medical breakfast. Branch STOP GLIMEPIRID E. magnesium 0 Yes [id number] TAKE 2 U nivers oxide 400 2-08 TABLETS BY ity of mg (241.3 00:00: MOUTH 4 [place] mg 00 TIMES Medical magnesium) DAILY Branch tablet Insulin Yes [id number] Use as [facility] [place], 2-08 directed ity of Disposable, 00:00: once daily [place] (RELION PEN 00 to inject Med ical NEEDLES) 32 insulin; Bran ch gauge x E11.65 5/32" Ndle glipiZIDE Yes [id number] 10mg Take 1 [facility] XL 10 mg 24 2-08 tablet by ity of hr tablet 00:00: mouth [place] 00 daily with Medical breakfast. Branch STOP GLIMEPIRID E. magnesium Yes [id number] TAKE 2 U nivers oxide 400 2-08 TABLETS BY ity of mg (241.3 00:00: MOUTH 4 [place] mg 00 TIMES Medical magnesium) DAILY Branch tablet Insulin Yes [id number] Use as [facility] [place], 2-08 directed ity of Disposable, 00:00: once daily [place] (RELION PEN 00 to inject Med ical NEEDLES) 32 insulin; Bran ch gauge x E11.65 32" Ndle glipiZIDE Yes [id number] 10mg Take 1 [facility] XL 10 mg 24 2-08 tablet by ity of hr tablet 00:00: mouth [place] 00 daily with Medical breakfast. Branch STOP GLIMEPIRID E. magnesium Yes [id number] TAKE 2 U nivers oxide 400 2-08 TABLETS BY ity of mg (241.3 00:00: MOUTH 4 [place] mg 00 TIMES Medical magnesium) DAILY Branch tablet Insulin Yes [id number] Use as [facility] [place], 2-08 directed ity of Disposable, 00:00: once daily [place] (RELION PEN 00 to inject Med ical NEEDLES) 32 insulin; Bran ch gauge x E11.65 5/32" Ndle glipiZIDE Yes [id number] 10mg Take 1 [facility] XL 10 mg 24 2-08 tablet by ity of hr tablet 00:00: mouth [place] 00 daily with Medical breakfast. Branch STOP GLIMEPIRID E. magnesium Yes [id number] TAKE 2 U nivers oxide 400 2-08 TABLETS BY ity of mg (241.3 00:00: MOUTH 4 [place] mg 00 TIMES Medical magnesium) DAILY Branch tablet Insulin 0 Yes [id number] Use as [facility] [place], 2-08 directed ity of Disposable, 00:00: once daily [place] (RELION PEN 00 to inject Med ical NEEDLES) 32 insulin; Bran ch gauge x E11.65 5/32" Ndle glipiZIDE 0 Yes [id number] 10mg Take 1 [facility] XL 10 mg 24 2-08 tablet by ity of hr tablet 00:00: mouth [place] 00 daily with Medical breakfast. Branch STOP GLIMEPIRID E. Insulin 0 Yes [id number] Use as [facility] [place], 2-08 directed ity of Disposable, 00:00: once daily [place] (RELION PEN 00 to inject Med ical NEEDLES) 32 insulin; Bran ch gauge x E11.65 5/32" Ndle glipiZIDE 0 Yes [id number] 10mg Take 1 [facility] XL 10 mg 24 2-08 tablet by ity of hr tablet 00:00: mouth [place] 00 daily with Medical breakfast. Branch STOP GLIMEPIRID E. Insulin 0 Yes [id number] Use as [facility] [place], 2-08 directed ity of Disposable, 00:00: once daily [place] (RELION PEN 00 to inject Med ical NEEDLES) 32 insulin; Bran ch gauge x E11.65 5/32" Ndle glipiZIDE 2022-0 Yes [id number] 10mg Take 1 [facility] XL 10 mg 24 2-08 tablet by ity of hr tablet 00:00: mouth [place] 00 daily with Medical breakfast. Branch STOP GLIMEPIRID E. Insulin 0 Yes [id number] Use as [facility] [place], 2-08 directed ity of Disposable, 00:00: once daily [place] (RELION PEN 00 to inject Med ical NEEDLES) 32 insulin; Bran ch gauge x E11.65 5/32" Ndle glipiZIDE 2022-0 Yes [id number] 10mg Take 1 [facility] XL 10 mg 24 2-08 tablet by ity of hr tablet 00:00: mouth [place] 00 daily with Medical breakfast. Branch STOP GLIMEPIRID E. Insulin 0 Yes [id number] Use as [facility] [place], 2-08 directed ity of Disposable, 00:00: once daily [place] (RELION PEN 00 to inject Med ical NEEDLES) 32 insulin; Bran ch gauge x E11.65 5/32" Ndle glipiZIDE 2022-0 Yes [id number] 10mg Take 1 [facility] XL 10 mg 24 2-08 tablet by ity of hr tablet 00:00: mouth [place] 00 daily with Medical breakfast. Branch STOP GLIMEPIRID E. magnesium 0 2022- No [id number] TAKE 2 [facility] oxide 400 2-08 05-04 TABLETS BY ity of mg (241.3 00:00: 00:00 MOUTH 4 [place] 00 :00 TIMES Medical magnesium) DAILY Branch tablet lancets 33 2022-0 Yes [id number] Use as [facility] gauge Misc 2-07 directed. ity of 00:00: .21. 00 Check once Medical daily Branch lancets 33 3-0 Yes [id number] Use as [facility] gauge Misc 2-07 directed. ity of 00:00: . 00 Check once Medical daily Branch lancets 33 3-0 Yes [id number] Use as [facility] gauge Misc 2-07 directed. ity of 00:00: . [place] 00 Check once Medical daily Branch lancets 33 2022-0 Yes [id number] Use as [facility] gauge Misc 2-07 directed. ity of 00:00: . [place] 00 Check once Medical daily Branch lancets 33 3-0 Yes [id number] Use as [facility] gauge Misc 2-07 directed. ity of 00:00: . [place] 00 Check once Medical daily Branch lancets 33 3-0 Yes [id number] Use as [facility] gauge Misc 2-07 directed. ity of 00:00: . [place] 00 Check once Medical daily Branch lancets 33 3-0 Yes [id number] Use as [facility] gauge Misc 2-07 directed. ity of 00:00: .. [place] 00 Check once Medical daily Branch lancets 33 3-0 Yes [id number] Use as [facility] gauge Misc 2-07 directed. ity of 00:00: .21. [place] 00 Check once Medical daily Branch lancets 33 3-0 Yes [id number] Use as [facility] gauge Misc 2-07 directed. ity of 00:00: .21. [place] 00 Check once Medical daily Branch lancets 33 3-0 Yes [id number] Use as [facility] gauge Misc 2-07 directed. ity of 00:00: E11.21. [place] 00 Check once Medical daily Branch lancets 33 2023-0 Yes [id number] Use as [facility] gauge Misc 2-07 directed. ity of 00:00: E11.21. [place] 00 Check once Medical daily Branch lancets 33 2023-0 Yes [id number] Use as [facility] gauge Misc 2-07 directed. ity of 00:00: E11.21. [place] 00 Check once Medical daily Branch lancets 33 2023-0 Yes [id number] Use as [facility] gauge Misc 2-07 directed. ity of 00:00: E11.21. [place] 00 Check once Medical daily Branch lancets 33 2023-0 Yes [id number] Use as [facility] gauge Misc 2-07 directed. ity of 00:00: E11.21. [place] 00 Check once Medical daily Branch lancets 33 2023-0 Yes [id number] Use as [facility] gauge Misc 2-07 directed. ity of 00:00: E11.. [place] 00 Check once Medical daily Branch lancets 33 2023-0 Yes [id number] Use as [facility] gauge Misc 2-07 directed. ity of 00:00: E11.21. [place] 00 Check once Medical daily Branch lancets 33 2023-0 Yes [id number] Use as [facility] gauge Misc 2-07 directed. ity of 00:00: E11.21. [place] 00 Check once Medical daily Branch lancets 33 2023-0 Yes [id number] Use as [facility] gauge Misc 2-07 directed. ity of 00:00: E11.. [place] 00 Check once Medical daily Branch lancets 33 2023-0 Yes [id number] Use as [facility] gauge Misc 2-07 directed. ity of 00:00: E11.21. [place] 00 Check once Medical daily Branch lancets 33 2023-0 Yes [id number] Use as [facility] gauge Misc 2-07 directed. ity of 00:00: E11.21. [place] 00 Check once Medical daily Branch lancets 33 2023-0 Yes [id number] Use as [facility] gauge Misc 2-07 directed. ity of 00:00: E11.21. [place] 00 Check once Medical daily Branch lancets 33 2023-0 Yes [id number] Use as [facility] gauge Misc 2-07 directed. ity of 00:00: E11.21. [place] 00 Check once Medical daily Branch lancets 33 2023-0 Yes [id number] Use as [facility] gauge Misc 2-07 directed. ity of 00:00: E11.21. [place] 00 Check once Medical daily Branch lancets 33 2023-0 Yes [id number] Use as [facility] gauge Misc 2-07 directed. ity of 00:00: E11.21. [place] 00 Check once Medical daily Branch lancets 33 2023-0 Yes [id number] Use as [facility] gauge Misc 2-07 directed. ity of 00:00: E11.21. [place] 00 Check once Medical daily Branch lancets 33 2023-0 Yes [id number] Use as [facility] gauge Misc 2-07 directed. ity of 00:00: E11.21. [place] 00 Check once Medical daily Branch lancets 33 2023-0 Yes [id number] Use as [facility] gauge Misc 2-07 directed. ity of 00:00: E11.21. [place] 00 Check once Medical daily Branch lancets 33 2023-0 Yes [id number] Use as [facility] gauge Misc 2-07 directed. ity of 00:00: E11.21. [place] 00 Check once Medical daily Branch lancets 33 2023-0 Yes [id number] Use as [facility] gauge Misc 2-07 directed. ity of 00:00: E11.21. [place] 00 Check once Medical daily Branch lancets 33 2023-0 Yes [id number] Use as [facility] gauge Misc 2-07 directed. ity of 00:00: E11.21. [place] 00 Check once Medical daily Branch lancets 33 2023-0 Yes [id number] Use as [facility] gauge Misc 2-07 directed. ity of 00:00: E11.21. [place] 00 Check once Medical daily Branch lancets 33 2023-0 Yes [id number] Use as [facility] gauge Misc 2-07 directed. ity of 00:00: E11.21. [place] 00 Check once Medical daily Branch lancets 33 2023-0 Yes [id number] Use as [facility] gauge Misc 2-07 directed. ity of 00:00: E11.21. [place] 00 Check once Medical daily Branch lancets 33 2023-0 Yes [id number] Use as [facility] gauge Misc 2-07 directed. ity of 00:00: E11.21. [place] 00 Check once Medical daily Branch lancets 33 2023-0 Yes [id number] Use as [facility] gauge Misc 2-07 directed. ity of 00:00: . [place] 00 Check once Medical daily Branch lancets 33 2023-0 Yes [id number] Use as [facility] gauge Misc 2-07 directed. ity of 00:00: . [place] 00 Check once Medical daily Branch lancets 33 2023-0 Yes [id number] Use as [facility] gauge Misc 2-07 directed. ity of 00:00: . [place] 00 Check once Medical daily Branch lancets 33 2023-0 Yes [id number] Use as [facility] gauge Misc 2-07 directed. ity of 00:00: . [place] 00 Check once Medical daily Branch lancets 33 2023-0 Yes [id number] Use as [facility] gauge Misc 2-07 directed. ity of 00:00: . [place] 00 Check once Medical daily Branch lancets 33 2023-0 Yes [id number] Use as [facility] gauge Misc 2-07 directed. ity of 00:00: . [place] 00 Check once Medical daily Branch lancets 33 2023-0 Yes [id number] Use as [facility] gauge Misc 2-07 directed. ity of 00:00: . [place] 00 Check once Medical daily Branch metformin 2022-0 Yes [id number] 1000mg Take 2 [facility] ER 500 mg 2-03 tablets by ity of 24 hr 00:00: mouth in [place] tablet 00 the Medical morning Branch and 2 tablets in the evening. Take with meals. rosuvastati 2022-0 Yes [id number] TAKE 1 [facility] n 20 mg 2-03 TABLET AT ity of tablet 00:00: BEDTIME, [place] [address] STOP Medical TAKING Branch ATORVASTAT IN metformin 2022-0 Yes [id number] 1000mg Take 2 [facility] ER 500 mg 2-03 tablets by ity of 24 hr 00:00: mouth in [place] tablet 00 the Medical morning Branch and 2 tablets in the evening. Take with meals. rosuvastati 2022-0 Yes [id number] TAKE 1 [facility] n 20 mg 2-03 TABLET AT ity of tablet 00:00: BEDTIME, [place] [address] STOP Medical TAKING Branch ATORVASTAT IN metformin 2022-0 Yes [id number] 1000mg Take 2 [facility] ER 500 mg 2-03 tablets by ity of 24 hr 00:00: mouth in [place] tablet 00 the Medical morning Branch and 2 tablets in the evening. Take with meals. rosuvastati 0 Yes [id number] TAKE 1 [facility] n 20 mg 2-03 TABLET AT ity of tablet 00:00: BEDTIME, [place] 00 STOP Medical TAKING Branch ATORVASTAT IN metformin Yes [id number] 1000mg Take 2 [facility] ER 500 mg 2-03 tablets by ity of 24 hr 00:00: mouth in [place] tablet 00 the Medical morning Branch and 2 tablets in the evening. Take with meals. rosuvastati Yes [id number] TAKE 1 [facility] n 20 mg 2-03 TABLET AT ity of tablet 00:00: BEDTIME, [place] 00 STOP Medical TAKING Branch ATORVASTAT IN metformin Yes [id number] 1000mg Take 2 [facility] ER 500 mg 2-03 tablets by ity of 24 hr 00:00: mouth in [place] tablet 00 the Medical morning Branch and 2 tablets in the evening. Take with meals. rosuvastati Yes [id number] TAKE 1 [facility] n 20 mg 2-03 TABLET AT ity of tablet 00:00: BEDTIME, [place] 00 STOP Medical TAKING Branch ATORVASTAT IN metformin Yes [id number] 1000mg Take 2 [facility] ER 500 mg 2-03 tablets by ity of 24 hr 00:00: mouth in [place] tablet 00 the Medical morning Branch and 2 tablets in the evening. Take with meals. rosuvastati 0 Yes [id number] TAKE 1 [facility] n 20 mg 2-03 TABLET AT ity of tablet 00:00: BEDTIME, [place] 00 STOP Medical TAKING Branch ATORVASTAT IN metformin Yes [id number] 1000mg Take 2 [facility] ER 500 mg 2-03 tablets by ity of 24 hr 00:00: mouth in [place] tablet 00 the Medical morning Branch and 2 tablets in the evening. Take with meals. rosuvastati Yes [id number] TAKE 1 [facility] n 20 mg 2-03 TABLET AT ity of tablet 00:00: BEDTIME, [place] 00 STOP Medical TAKING Branch ATORVASTAT IN metformin Yes [id number] 1000mg Take 2 [facility] ER 500 mg 2-03 tablets by ity of 24 hr 00:00: mouth in [place] tablet 00 the Medical morning Branch and 2 tablets in the evening. Take with meals. rosuvastati 0 Yes [id number] TAKE 1 [facility] n 20 mg 2-03 TABLET AT ity of tablet 00:00: BEDTIME, [place] 00 STOP Medical TAKING Branch ATORVASTAT IN metformin 0 Yes [id number] 1000mg Take 2 [facility] ER 500 mg 2-03 tablets by ity of 24 hr 00:00: mouth in [place] tablet 00 the Medical morning Branch and 2 tablets in the evening. Take with meals. rosuvastati 0 Yes [id number] TAKE 1 [facility] n 20 mg 2-03 TABLET AT ity of tablet 00:00: BEDTIME, [place] [address] STOP Medical TAKING Branch ATORVASTAT IN metformin 0 Yes [id number] 1000mg Take 2 [facility] ER 500 mg 2-03 tablets by ity of 24 hr 00:00: mouth in [place] tablet 00 the Medical morning Branch and 2 tablets in the evening. Take with meals. rosuvastati 0 Yes [id number] TAKE 1 [facility] n 20 mg 2-03 TABLET AT ity of tablet 00:00: BEDTIME, [place] [address] STOP Medical TAKING Branch ATORVASTAT IN metformin 0 Yes [id number] 1000mg Take 2 [facility] ER 500 mg 2-03 tablets by ity of 24 hr 00:00: mouth in [place] tablet 00 the Medical morning Branch and 2 tablets in the evening. Take with meals. rosuvastati 0 Yes [id number] TAKE 1 [facility] n 20 mg 2-03 TABLET AT ity of tablet 00:00: BEDTIME, [place] [address] STOP Medical TAKING Branch ATORVASTAT IN metformin 0 Yes [id number] 1000mg Take 2 [facility] ER 500 mg 2-03 tablets by ity of 24 hr 00:00: mouth in [place] tablet 00 the Medical morning Branch and 2 tablets in the evening. Take with meals. rosuvastati 0 Yes [id number] TAKE 1 [facility] n 20 mg 2-03 TABLET AT ity of tablet 00:00: BEDTIME, [place] [address] STOP Medical TAKING Branch ATORVASTAT IN metformin 0 Yes [id number] 1000mg Take 2 [facility] ER 500 mg 2-03 tablets by ity of 24 hr 00:00: mouth in [place] tablet 00 the Medical morning Branch and 2 tablets in the evening. Take with meals. rosuvastati 0 Yes [id number] TAKE 1 [facility] n 20 mg 2-03 TABLET AT ity of tablet 00:00: BEDTIME, [place] 00 STOP Medical TAKING Branch ATORVASTAT IN metformin 0 Yes [id number] 1000mg Take 2 [facility] ER 500 mg 2-03 tablets by ity of 24 hr 00:00: mouth in [place] tablet 00 the Medical morning Branch and 2 tablets in the evening. Take with meals. rosuvastati 0 Yes [id number] TAKE 1 [facility] n 20 mg 2-03 TABLET AT ity of tablet 00:00: BEDTIME, [place] 00 STOP Medical TAKING Branch ATORVASTAT IN metformin Yes [id number] 1000mg Take 2 [facility] ER 500 mg 2-03 tablets by ity of 24 hr 00:00: mouth in [place] tablet 00 the Medical morning Branch and 2 tablets in the evening. Take with meals. rosuvastati Yes [id number] TAKE 1 [facility] n 20 mg 2-03 TABLET AT ity of tablet 00:00: BEDTIME, [place] 00 STOP Medical TAKING Branch ATORVASTAT IN metformin Yes [id number] 1000mg Take 2 [facility] ER 500 mg 2-03 tablets by ity of 24 hr 00:00: mouth in [place] tablet 00 the Medical morning Branch and 2 tablets in the evening. Take with meals. rosuvastati 0 Yes [id number] TAKE 1 [facility] n 20 mg 2-03 TABLET AT ity of tablet 00:00: BEDTIME, [place] 00 STOP Medical TAKING Branch ATORVASTAT IN metformin Yes [id number] 1000mg Take 2 [facility] ER 500 mg 2-03 tablets by ity of 24 hr 00:00: mouth in [place] tablet 00 the Medical morning Branch and 2 tablets in the evening. Take with meals. rosuvastati 0 Yes [id number] TAKE 1 [facility] n 20 mg 2-03 TABLET AT ity of tablet 00:00: BEDTIME, [place] 00 STOP Medical TAKING Branch ATORVASTAT IN metformin Yes [id number] 1000mg Take 2 [facility] ER 500 mg 2-03 tablets by ity of 24 hr 00:00: mouth in [place] tablet 00 the Medical morning Branch and 2 tablets in the evening. Take with meals. rosuvastati 0 Yes [id number] TAKE 1 [facility] n 20 mg 2-03 TABLET AT ity of tablet 00:00: BEDTIME, [place] 00 STOP Medical TAKING Branch ATORVASTAT IN metformin Yes [id number] 1000mg Take 2 [facility] ER 500 mg 2-03 tablets by ity of 24 hr 00:00: mouth in [place] tablet 00 the Medical morning Branch and 2 tablets in the evening. Take with meals. rosuvastati Yes [id number] TAKE 1 [facility] n 20 mg 2-03 TABLET AT ity of tablet 00:00: BEDTIME, [place] 00 STOP Medical TAKING Branch ATORVASTAT IN metformin Yes [id number] 1000mg Take 2 [facility] ER 500 mg 2-03 tablets by ity of 24 hr 00:00: mouth in [place] tablet 00 the Medical morning Branch and 2 tablets in the evening. Take with meals. rosuvastati Yes [id number] TAKE 1 [facility] n 20 mg 2-03 TABLET AT ity of tablet 00:00: BEDTIME, [place] 00 STOP Medical TAKING Branch ATORVASTAT IN metformin Yes [id number] 1000mg Take 2 [facility] ER 500 mg 2-03 tablets by ity of 24 hr 00:00: mouth in [place] tablet 00 the Medical morning Branch and 2 tablets in the evening. Take with meals. rosuvastati Yes [id number] TAKE 1 [facility] n 20 mg 2-03 TABLET AT ity of tablet 00:00: BEDTIME, [place] 00 STOP Medical TAKING Branch ATORVASTAT IN metformin Yes [id number] 1000mg Take 2 [facility] ER 500 mg 2-03 tablets by ity of 24 hr 00:00: mouth in [place] tablet 00 the Medical morning Branch and 2 tablets in the evening. Take with meals. rosuvastati Yes [id number] TAKE 1 [facility] n 20 mg 2-03 TABLET AT ity of tablet 00:00: BEDTIME, [place] 00 STOP Medical TAKING Branch ATORVASTAT IN metformin Yes [id number] 1000mg Take 2 [facility] ER 500 mg 2-03 tablets by ity of 24 hr 00:00: mouth in [place] tablet 00 the Medical morning Branch and 2 tablets in the evening. Take with meals. rosuvastati Yes [id number] TAKE 1 [facility] n 20 mg 2-03 TABLET AT ity of tablet 00:00: BEDTIME, [place] 00 STOP Medical TAKING Branch ATORVASTAT IN metformin Yes [id number] 1000mg Take 2 [facility] ER 500 mg 2-03 tablets by ity of 24 hr 00:00: mouth in [place] tablet 00 the Medical morning Branch and 2 tablets in the evening. Take with meals. rosuvastati 0 Yes [id number] TAKE 1 [facility] n 20 mg 2-03 TABLET AT ity of tablet 00:00: BEDTIME, [place] 00 STOP Medical TAKING Branch ATORVASTAT IN metformin Yes [id number] 1000mg Take 2 [facility] ER 500 mg 2-03 tablets by ity of 24 hr 00:00: mouth in [place] tablet 00 the Medical morning Branch and 2 tablets in the evening. Take with meals. rosuvastati Yes [id number] TAKE 1 [facility] n 20 mg 2-03 TABLET AT ity of tablet 00:00: BEDTIME, [place] [address] STOP Medical TAKING Branch ATORVASTAT IN metformin Yes [id number] 1000mg Take 2 [facility] ER 500 mg 2-03 tablets by ity of 24 hr 00:00: mouth in [place] tablet 00 the Medical morning Branch and 2 tablets in the evening. Take with meals. rosuvastati Yes [id number] TAKE 1 [facility] n 20 mg 2-03 TABLET AT ity of tablet 00:00: BEDTIME, [place] 00 STOP Medical TAKING Branch ATORVASTAT IN metformin Yes [id number] 1000mg Take 2 [facility] ER 500 mg 2-03 tablets by ity of 24 hr 00:00: mouth in [place] tablet 00 the Medical morning Branch and 2 tablets in the evening. Take with meals. rosuvastati 0 Yes [id number] TAKE 1 [facility] n 20 mg 2-03 TABLET AT ity of tablet 00:00: BEDTIME, [place] 00 STOP Medical TAKING Branch ATORVASTAT IN metformin Yes [id number] 1000mg Take 2 [facility] ER 500 mg 2-03 tablets by ity of 24 hr 00:00: mouth in [place] tablet 00 the Medical morning Branch and 2 tablets in the evening. Take with meals. rosuvastati 0 Yes [id number] TAKE 1 [facility] n 20 mg 2-03 TABLET AT ity of tablet 00:00: BEDTIME, [place] 00 STOP Medical TAKING Branch ATORVASTAT IN metformin Yes [id number] 1000mg Take 2 [facility] ER 500 mg 2-03 tablets by ity of 24 hr 00:00: mouth in [place] tablet 00 the Medical morning Branch and 2 tablets in the evening. Take with meals. rosuvastati Yes [id number] TAKE 1 [facility] n 20 mg 2-03 TABLET AT ity of tablet 00:00: BEDTIME, [place] 00 STOP Medical TAKING Branch ATORVASTAT IN metformin Yes [id number] 1000mg Take 2 [facility] ER 500 mg 2-03 tablets by ity of 24 hr 00:00: mouth in [place] tablet 00 the Medical morning Branch and 2 tablets in the evening. Take with meals. rosuvastati Yes [id number] TAKE 1 [facility] n 20 mg 2-03 TABLET AT ity of tablet 00:00: BEDTIME, [place] 00 STOP Medical TAKING Branch ATORVASTAT IN metformin Yes [id number] 1000mg Take 2 [facility] ER 500 mg 2-03 tablets by ity of 24 hr 00:00: mouth in [place] tablet 00 the Medical morning Branch and 2 tablets in the evening. Take with meals. rosuvastati Yes [id number] TAKE 1 [facility] n 20 mg 2-03 TABLET AT ity of tablet 00:00: BEDTIME, [place] 00 STOP Medical TAKING Branch ATORVASTAT IN metformin Yes [id number] 1000mg Take 2 [facility] ER 500 mg 2-03 tablets by ity of 24 hr 00:00: mouth in [place] tablet 00 the Medical morning Branch and 2 tablets in the evening. Take with meals. rosuvastati Yes [id number] TAKE 1 [facility] n 20 mg 2-03 TABLET AT ity of tablet 00:00: BEDTIME, [place] 00 STOP Medical TAKING Branch ATORVASTAT IN metformin 0 Yes [id number] 1000mg Take 2 [facility] ER 500 mg 2-03 tablets by ity of 24 hr 00:00: mouth in [place] tablet 00 the Medical morning Branch and 2 tablets in the evening. Take with meals. rosuvastati Yes [id number] TAKE 1 [facility] n 20 mg 2-03 TABLET AT ity of tablet 00:00: BEDTIME, [place] 00 STOP Medical TAKING Branch ATORVASTAT IN metformin 0 Yes [id number] 1000mg Take 2 [facility] ER 500 mg 2-03 tablets by ity of 24 hr 00:00: mouth in [place] tablet 00 the Medical morning Branch and 2 tablets in the evening. Take with meals. rosuvastati 2022-0 Yes [id number] TAKE 1 [facility] n 20 mg 2-03 TABLET AT ity of tablet 00:00: BEDTIME, [place] [address] STOP Medical TAKING Branch ATORVASTAT IN metformin 2022-0 Yes [id number] 1000mg Take 2 Univers ER 500 mg 2-03 tablets by [facility] of 24 hr 00:00: mouth in [place] tablet 00 the Medical morning Branch and 2 tablets in the evening. Take with meals. rosuvastati 2022-0 Yes [id number] TAKE 1 [facility] 20 mg 2-03 TABLET AT ity of tablet 00:00: BEDTIME, [place] [address] STOP Medical TAKING Branch ATORVASTAT IN metformin 0 Yes [id number] 1000mg Take 2 [facility] ER 500 mg 2-03 tablets by it[facility] of 24 hr 00:00: mouth in [place] tablet 00 the Medical morning Branch and 2 tablets in the evening. Take with meals. rosuvastati 2022-0 Yes [id number] TAKE 1 [facility] n 20 mg 2-03 TABLET AT ity of tablet 00:00: BEDTIME, [place] [address] STOP Medical TAKING Branch ATORVASTAT IN metformin 0 Yes [id number] 1000mg Take 2 [facility] ER 500 mg 2-03 tablets by it[facility] of 24 hr 00:00: mouth in [place] tablet 00 the Medical morning Branch and 2 tablets in the evening. Take with meals. rosuvastati 2022-0 Yes [id number] TAKE 1 [facility] n 20 mg 2-03 TABLET AT ity of tablet 00:00: BEDTIME, [place] [address] STOP Medical TAKING Branch ATORVASTAT IN metformin 2022-0 Yes [id number] 1000mg Take 2 [facility] ER 500 mg 2-03 tablets by it[facility] of 24 hr 00:00: mouth in [place] tablet 00 the Medical morning Branch and 2 tablets in the evening. Take with meals. rosuvastati 2022-0 Yes [id number] TAKE 1 [facility] n 20 mg 2-03 TABLET AT ity of tablet 00:00: BEDTIME, [place] [address] STOP Medical TAKING Branch ATORVASTAT IN metformin 2022-0 Yes [id number] 1000mg Take 2 [facility] ER 500 mg 2-03 tablets by ity of 24 hr 00:00: mouth in [place] tablet 00 the Medical morning Branch and 2 tablets in the evening. Take with meals. rosuvastati Yes [id number] TAKE 1 [facility] n 20 mg 2-03 TABLET AT ity of tablet 00:00: BEDTIME, [place] 00 STOP Medical TAKING Branch ATORVASTAT IN metformin Yes [id number] 1000mg Take 2 [facility] ER 500 mg 2-03 tablets by it[facility] of 24 hr 00:00: mouth in [place] tablet 00 the Medical morning Branch and 2 tablets in the evening. Take with meals. rosuvastati Yes [id number] TAKE 1 [facility] n 20 mg 2-03 TABLET AT ity of tablet 00:00: BEDTIME, [place] 00 STOP Medical TAKING Branch ATORVASTAT IN metformin Yes [id number] 1000mg Take 2 [facility] ER 500 mg 2-03 tablets by it[facility] of 24 hr 00:00: mouth in [place] tablet 00 the Medical morning Branch and 2 tablets in the evening. Take with meals. rosuvastati Yes [id number] TAKE 1 [facility] n 20 mg 2-03 TABLET AT it[facility] of tablet 00:00: BEDTIME, [place] 00 STOP Medical TAKING Branch ATORVASTAT IN metformin Yes [id number] 1000mg Take 2 [facility] ER 500 mg 2-03 tablets by it[facility] of 24 hr 00:00: mouth in [place] tablet 00 the Medical morning Branch and 2 tablets in the evening. Take with meals. rosuvastati Yes [id number] TAKE 1 [facility] n 20 mg 2-03 TABLET AT it[facility] of tablet 00:00: BEDTIME, [place] 00 STOP Medical TAKING Branch ATORVASTAT IN [...] glucose for ICD code E11.9 TRUE METRIX 0 Yes Use as [facility] ers LEVEL 1 1-30 directed, ity of Soln 00:00: once a day [place] 00 to monitor Medical blood Branch glucose for ICD code E11.9 TRUE METRIX 0 Yes Use as [facility] ers AIR GLUCOSE [...] glucose for ICD code E11.9 TRUE METRIX 3-0 2023- No Use as [facility] vers AIR GLUCOSE 05-13 directed, it y of METER Kit 00:00: 00:00 once a day [place] 00 :00 to monitor Medical blood Branch glucose for ICD code E11.9 TRUEPLUS 2022-0 202- No Use as [facility] s LANCETS 33 05-13 directed, ity of gauge Misc 00:00: 00:00 once a day [place] 00 :00 to monitor Medical blood Branch glucose for ICD code E11.9 Alcohol 2021-04 Yes [id number] Use as [facility] ers Swabs (BD 2-21 [...] for ICD code E11.9 Alcohol 2021-04 Yes [id number] Use as [facility] ers Swabs (BD 2-21 [...] for ICD code E11.9 Alcohol 2021-04 Yes [id number] Use as [facility] ers Swabs (BD 2-21 [...] for ICD code E11.9 Alcohol 2021-04 Yes [id number] Use as [facility] Swabs (BD 2-21 [...] for ICD code E11.9 Alcohol 2021-04 Yes [id number] Use as [facility] ers Swabs (BD 2-21 [...] for ICD code E11.9 Alcohol 2021-04 Yes [id number] Use as [facility] ers Swabs (BD 2-21 [...] for ICD code E11.9 Alcohol 2021-04 Yes [id number] Use as [facility] Swabs (BD 2-21 [...] for ICD code E11.9 Alcohol 2021-04 Yes [id number] Use as [facility] ers Swabs (BD 2-21 [...] for ICD code E11.9 Alcohol 2021-04 Yes [id number] Use as [facility] ers Swabs (BD 2-21 [...] for ICD code E11.9 Alcohol 2021-04 Yes [id number] Use as [facility] ers Swabs (BD 2-21 [...] for ICD code E11.9 Alcohol 2021-04 Yes [id number] Use as [facility] Swabs (BD 2-21 [...] for ICD code E11.9 Alcohol 2021-04 Yes [id number] Use as [facility] ers Swabs (BD 2-21 [...] for ICD code E11.9 Alcohol 2021-04 Yes [id number] Use as [facility] ers Swabs (BD 2-21 [...] for ICD code E11.9 Alcohol 2021-04 Yes [id number] Use as [facility] ers Swabs (BD 2-21 [...] for ICD code E11.9 Alcohol 2021-04 Yes [id number] Use as [facility] Swabs (BD 2-21 [...] for ICD code E11.9 Alcohol 2021-04 Yes [id number] Use as [facility] ers Swabs (BD 2-21 [...] for ICD code E11.9 Alcohol 2021-04 Yes [id number] Use as [facility] ers Swabs (BD 2-21 [...] for ICD code E11.9 Alcohol 2021-04 Yes [id number] Use as [facility] Swabs (BD 2-21 [...] for ICD code E11.9 Alcohol 2021-04 Yes [id number] Use as [facility] Swabs (BD 2-21 [...] for ICD code E11.9 Alcohol 2021-04 Yes [id number] Use as [facility] Swabs (BD 2-21 [...] for ICD code E11.9 Alcohol 2021-04 Yes [id number] Use as [facility] Swabs (BD 2-21 [...] for ICD code E11.9 Alcohol 2021-04 Yes [id number] Use as [facility] Swabs (BD 2-21 [...] for ICD code E11.9 Alcohol 2021-04 Yes [id number] Use as [facility] Swabs (BD 2-21 [...] for ICD code E11.9 Alcohol 2021-04 Yes [id number] Use as [facility] Swabs (BD 2-21 [...] for ICD code E11.9 Alcohol 2021-04 Yes [id number] Use as [facility] Swabs (BD 2-21 [...] for ICD code E11.9 Alcohol 2021-04 Yes [id number] Use as [facility] Swabs (BD 2-21 [...] for ICD code E11.9 Alcohol 2021-04 Yes [id number] Use as [facility] Swabs (BD 2-21 [...] for ICD code E11.9 Alcohol 2021-04 Yes [id number] Use as [facility] Swabs (BD 2-21 [...] for ICD code E11.9 Alcohol 2021-04 Yes [id number] Use as [facility] Swabs (BD 2-21 [...] for ICD code E11.9 Alcohol 2021-04 Yes [id number] Use as [facility] Swabs (BD 2-21 [...] for ICD code E11.9 Alcohol 2021-04 Yes [id number] Use as [facility] Swabs (BD 2-21 [...] for ICD code E11.9 Alcohol 2021-04 Yes [id number] Use as [facility] Swabs (BD 2-21 [...] for ICD code E11.9 Alcohol 2021-04 Yes [id number] Use as [facility] Swabs (BD 2-21 [...] for ICD code E11.9 Alcohol 2021-04 Yes [id number] Use as [facility] Swabs (BD 2-21 [...] for ICD code E11.9 Alcohol 2021-04 Yes [id number] Use as [facility] Swabs (BD 2-21 [...] for ICD code E11.9 Alcohol 2021-04 Yes [id number] Use as [facility] Swabs (BD 2-21 [...] for ICD code E11.9 Alcohol 2021-04 Yes [id number] Use as [facility] Swabs (BD 2-21 [...] for ICD code E11.9 Alcohol 2021-04 Yes [id number] Use as [facility] Swabs (BD 2-21 [...] for ICD code E11.9 Alcohol 2021-04 Yes [id number] Use as [facility] Swabs (BD 2-21 [...] for ICD code E11.9 Alcohol 2021-04 Yes [id number] Use as [facility] Swabs (BD 2-21 [...] for ICD code E11.9 Alcohol 2021-04 Yes [id number] Use as [facility] Swabs (BD 2-21 [...] for ICD code E11.9 Alcohol 2021-04 Yes [id number] Use as [facility] Swabs (BD 2-21 [...] for ICD code E11.9 Alcohol 2021-04 Yes [id number] Use as [facility] Swabs (BD 2-21 [...] for ICD code E11.9 Alcohol 2021-04 Yes [id number] Use as [facility] Swabs (BD 2-21 [...] for ICD code E11.9 Alcohol 2021-04 Yes [id number] Use as [facility] Swabs (BD 2-21 [...] for ICD code E11.9 Alcohol 2021-04 Yes [id number] Use as [facility] Swabs (BD 2-21 [...] for ICD code E11.9 Alcohol 2021-04 Yes [id number] Use as [facility] ers Swabs (BD 2-21 [...] for ICD code E11.9 Alcohol 2021-04 Yes [id number] Use as [facility] Swabs (BD 2-21 [...] for ICD code E11.9 Alcohol 2021-04 Yes [id number] Use as [facility] Swabs (BD 2-21 [...] for ICD code E11.9 Alcohol 2021-04 Yes [id number] Use as [facility] ers Swabs (BD 2-21 [...] for ICD code E11.9 tiZANidine 2021-04 Yes [id number] 2mg Take 1 [facility] 2 mg tablet 2-16 tablet by ity of 00:00: mouth [place] 00 every 6 Medical (six) Branch hours as needed for Pain (scale 4-6). albuterol 2021-04 Yes [id number] 2 puffs U nivers 90 2-16 with ity of mcg/actuati 00:00: spacer 4 [place] on inhaler 00 times a Medica l day for at Branch least 7 days tiZANidine 2021-04 Yes [id number] 2mg Take 1 [facility] 2 mg tablet 2-16 tablet by ity of 00:00: mouth [place] 00 every 6 Medical (six) Branch hours as needed for Pain (scale 4-6). albuterol 2021-04 Yes [id number] 2 puffs U nivers 90 2-16 with ity of mcg/actuati 00:00: spacer 4 [place] on inhaler 00 times a Medica l day for at Branch least 7 days tiZANidine 2021-04 Yes [id number] 2mg Take 1 [facility] 2 mg tablet 2-16 tablet by ity of 00:00: mouth [place] 00 every 6 Medical (six) Branch hours as needed for Pain (scale 4-6). albuterol 2021-04 Yes [id number] 2 puffs U nivers 90 2-16 with ity of mcg/actuati 00:00: spacer 4 [place] on inhaler 00 times a Medica l day for at Branch least 7 days tiZANidine 2021-04 Yes [id number] 2mg Take 1 [facility] 2 mg tablet 2-16 tablet by ity of 00:00: mouth [place] 00 every 6 Medical (six) Branch hours as needed for Pain (scale 4-6). albuterol 2021-04 Yes [id number] 2 puffs U nivers 90 2-16 with ity of mcg/actuati 00:00: spacer 4 [place] on inhaler 00 times a Medica l day for at Branch least 7 days tiZANidine 2021-04 Yes [id number] 2mg Take 1 [facility] 2 mg tablet 2-16 tablet by ity of 00:00: mouth [place] 00 every 6 Medical (six) Branch hours as needed for Pain (scale 4-6). albuterol 2021-04 Yes [id number] 2 puffs U nivers 90 2-16 with ity of mcg/actuati 00:00: spacer 4 [place] on inhaler 00 times a Medica l day for at Branch least 7 days tiZANidine 2021-04 Yes [id number] 2mg Take 1 [facility] 2 mg tablet 2-16 tablet by ity of 00:00: mouth [place] 00 every 6 Medical (six) Branch hours as needed for Pain (scale 4-6). albuterol 2021-04 Yes [id number] 2 puffs U nivers 90 2-16 with ity of mcg/actuati 00:00: spacer 4 [place] on inhaler 00 times a Medica l day for at Branch least 7 days tiZANidine 2021-04 Yes [id number] 2mg Take 1 [facility] 2 mg tablet 2-16 tablet by ity of 00:00: mouth [place] 00 every 6 Medical (six) Branch hours as needed for Pain (scale 4-6). albuterol 2021-04 Yes [id number] 2 puffs U nivers 90 2-16 with ity of mcg/actuati 00:00: spacer 4 [place] on inhaler 00 times a Medica l day for at Branch least 7 days tiZANidine 2021-04 Yes [id number] 2mg Take 1 [facility] 2 mg tablet 2-16 tablet by ity of 00:00: mouth [place] 00 every 6 Medical (six) Branch hours as needed for Pain (scale 4-6). albuterol 2021-04 Yes [id number] 2 puffs U nivers 90 2-16 with ity of mcg/actuati 00:00: spacer 4 [place] on inhaler 00 times a Medica l day for at Branch least 7 days tiZANidine 2021-04 Yes [id number] 2mg Take 1 [facility] 2 mg tablet 2-16 tablet by ity of 00:00: mouth [place] 00 every 6 Medical (six) Branch hours as needed for Pain (scale 4-6). albuterol 2021-04 Yes [id number] 2 puffs U nivers 90 2-16 with ity of mcg/actuati 00:00: spacer 4 [place] on inhaler 00 times a Medica l day for at Branch least 7 days tiZANidine 2021-04 Yes [id number] 2mg Take 1 [facility] 2 mg tablet 2-16 tablet by ity of 00:00: mouth [place] 00 every 6 Medical (six) Branch hours as needed for Pain (scale 4-6). albuterol 2021-04 Yes [id number] 2 puffs U nivers 90 2-16 with ity of mcg/actuati 00:00: spacer 4 [place] on inhaler 00 times a Medica l day for at Branch least 7 days tiZANidine 2021-04 Yes [id number] 2mg Take 1 [facility] 2 mg tablet 2-16 tablet by ity of 00:00: mouth [place] 00 every 6 Medical (six) Branch hours as needed for Pain (scale 4-6). albuterol 2021-04 Yes [id number] 2 puffs U nivers 90 2-16 with ity of mcg/actuati 00:00: spacer 4 [place] on inhaler 00 times a Medica l day for at Branch least 7 days tiZANidine 2021-04 Yes [id number] 2mg Take 1 [facility] 2 mg tablet 2-16 tablet by ity of 00:00: mouth [place] 00 every 6 Medical (six) Branch hours as needed for Pain (scale 4-6). albuterol 2021-04 Yes [id number] 2 puffs U nivers 90 2-16 with ity of mcg/actuati 00:00: spacer 4 [place] on inhaler 00 times a Medica l day for at Branch least 7 days tiZANidine 2021-04 Yes [id number] 2mg Take 1 [facility] 2 mg tablet 2-16 tablet by ity of 00:00: mouth [place] 00 every 6 Medical (six) Branch hours as needed for Pain (scale 4-6). albuterol 2021-04 Yes [id number] 2 puffs U nivers 90 2-16 with ity of mcg/actuati 00:00: spacer 4 [place] on inhaler 00 times a Medica l day for at Branch least 7 days tiZANidine 2021-04 Yes [id number] 2mg Take 1 [facility] 2 mg tablet 2-16 tablet by ity of 00:00: mouth [place] 00 every 6 Medical (six) Branch hours as needed for Pain (scale 4-6). albuterol 2021-04 Yes [id number] 2 puffs U nivers 90 2-16 with ity of mcg/actuati 00:00: spacer 4 [place] on inhaler 00 times a Medica l day for at Branch least 7 days tiZANidine 2021-04 Yes [id number] 2mg Take 1 [facility] 2 mg tablet 2-16 tablet by ity of 00:00: mouth [place] 00 every 6 Medical (six) Branch hours as needed for Pain (scale 4-6). albuterol 2021-04 Yes [id number] 2 puffs U nivers 90 2-16 with ity of mcg/actuati 00:00: spacer 4 [place] on inhaler 00 times a Medica l day for at Branch least 7 days tiZANidine 2021-04 Yes [id number] 2mg Take 1 [facility] 2 mg tablet 2-16 tablet by ity of 00:00: mouth [place] 00 every 6 Medical (six) Branch hours as needed for Pain (scale 4-6). albuterol 2021-04 Yes [id number] 2 puffs U nivers 90 2-16 with ity of mcg/actuati 00:00: spacer 4 [place] on inhaler 00 times a Medica l day for at Branch least 7 days tiZANidine 2021-04 Yes [id number] 2mg Take 1 [facility] 2 mg tablet 2-16 tablet by ity of 00:00: mouth [place] 00 every 6 Medical (six) Branch hours as needed for Pain (scale 4-6). albuterol 2021-04 Yes [id number] 2 puffs U nivers 90 2-16 with ity of mcg/actuati 00:00: spacer 4 [place] on inhaler 00 times a Medica l day for at Branch least 7 days tiZANidine 2021-04 Yes [id number] 2mg Take 1 [facility] 2 mg tablet 2-16 tablet by ity of 00:00: mouth [place] 00 every 6 Medical (six) Branch hours as needed for Pain (scale 4-6). albuterol 2021-04 Yes [id number] 2 puffs U nivers 90 2-16 with ity of mcg/actuati 00:00: spacer 4 [place] on inhaler 00 times a Medica l day for at Branch least 7 days tiZANidine 2021-04 Yes [id number] 2mg Take 1 [facility] 2 mg tablet 2-16 tablet by ity of 00:00: mouth [place] 00 every 6 Medical (six) Branch hours as needed for Pain (scale 4-6). albuterol 2021-04 Yes [id number] 2 puffs U nivers 90 2-16 with ity of mcg/actuati 00:00: spacer 4 [place] on inhaler 00 times a Medica l day for at Branch least 7 days tiZANidine 2021-04 Yes [id number] 2mg Take 1 [facility] 2 mg tablet 2-16 tablet by ity of 00:00: mouth [place] 00 every 6 Medical (six) Branch hours as needed for Pain (scale 4-6). albuterol 2021-04 Yes [id number] 2 puffs U nivers 90 2-16 with ity of mcg/actuati 00:00: spacer 4 [place] on inhaler 00 times a Medica l day for at Branch least 7 days tiZANidine 2021-04 Yes [id number] 2mg Take 1 [facility] 2 mg tablet 2-16 tablet by ity of 00:00: mouth [place] 00 every 6 Medical (six) Branch hours as needed for Pain (scale 4-6). albuterol 2021-04 Yes [id number] 2 puffs U nivers 90 2-16 with ity of mcg/actuati 00:00: spacer 4 [place] on inhaler 00 times a Medica l day for at Branch least 7 days tiZANidine 2021-04 Yes [id number] 2mg Take 1 [facility] 2 mg tablet 2-16 tablet by ity of 00:00: mouth [place] 00 every 6 Medical (six) Branch hours as needed for Pain (scale 4-6). albuterol 2021-04 Yes [id number] 2 puffs U nivers 90 2-16 with ity of mcg/actuati 00:00: spacer 4 [place] on inhaler 00 times a Medica l day for at Branch least 7 days tiZANidine 2021-04 Yes [id number] 2mg Take 1 [facility] 2 mg tablet 2-16 tablet by ity of 00:00: mouth [place] 00 every 6 Medical (six) Branch hours as needed for Pain (scale 4-6). albuterol 2021-04 Yes [id number] 2 puffs U nivers 90 2-16 with ity of mcg/actuati 00:00: spacer 4 [place] on inhaler 00 times a Medica l day for at Branch least 7 days tiZANidine 2021-04 Yes [id number] 2mg Take 1 [facility] 2 mg tablet 2-16 tablet by ity of 00:00: mouth [place] 00 every 6 Medical (six) Branch hours as needed for Pain (scale 4-6). albuterol 2021-04 Yes [id number] 2 puffs U nivers 90 2-16 with ity of mcg/actuati 00:00: spacer 4 [place] on inhaler 00 times a Medica l day for at Branch least 7 days tiZANidine 2021-04 Yes [id number] 2mg Take 1 [facility] 2 mg tablet 2-16 tablet by ity of 00:00: mouth [place] 00 every 6 Medical (six) Branch hours as needed for Pain (scale 4-6). albuterol 2021-04 Yes [id number] 2 puffs U nivers 90 2-16 with ity of mcg/actuati 00:00: spacer 4 [place] on inhaler 00 times a Medica l day for at Branch least 7 days tiZANidine 2021-04 Yes [id number] 2mg Take 1 [facility] 2 mg tablet 2-16 tablet by ity of 00:00: mouth [place] 00 every 6 Medical (six) Branch hours as needed for Pain (scale 4-6). albuterol 2021-04 Yes [id number] 2 puffs U nivers 90 2-16 with ity of mcg/actuati 00:00: spacer 4 [place] on inhaler 00 times a Medica l day for at Branch least 7 days tiZANidine 2021-04 Yes [id number] 2mg Take 1 [facility] 2 mg tablet 2-16 tablet by ity of 00:00: mouth [place] 00 every 6 Medical (six) Branch hours as needed for Pain (scale 4-6). albuterol 2021-04 Yes [id number] 2 puffs U nivers 90 2-16 with ity of mcg/actuati 00:00: spacer 4 [place] on inhaler 00 times a Medica l day for at Branch least 7 days tiZANidine 2021-04 Yes [id number] 2mg Take 1 [facility] 2 mg tablet 2-16 tablet by ity of 00:00: mouth [place] 00 every 6 Medical (six) Branch hours as needed for Pain (scale 4-6). albuterol 2021-04 Yes [id number] 2 puffs U nivers 90 2-16 with ity of mcg/actuati 00:00: spacer 4 [place] on inhaler 00 times a Medica l day for at Branch least 7 days tiZANidine 2021-04 Yes [id number] 2mg Take 1 [facility] 2 mg tablet 2-16 tablet by ity of 00:00: mouth [place] 00 every 6 Medical (six) Branch hours as needed for Pain (scale 4-6). albuterol 2021-04 Yes [id number] 2 puffs U nivers 90 2-16 with ity of mcg/actuati 00:00: spacer 4 [place] on inhaler 00 times a Medica l day for at Branch least 7 days tiZANidine 2021-04 Yes [id number] 2mg Take 1 [facility] 2 mg tablet 2-16 tablet by ity of 00:00: mouth [place] 00 every 6 Medical (six) Branch hours as needed for Pain (scale 4-6). albuterol 2021-04 Yes [id number] 2 puffs U nivers 90 2-16 with ity of mcg/actuati 00:00: spacer 4 [place] on inhaler 00 times a Medica l day for at Branch least 7 days tiZANidine 2021-04 Yes [id number] 2mg Take 1 [facility] 2 mg tablet 2-16 tablet by ity of 00:00: mouth [place] 00 every 6 Medical (six) Branch hours as needed for Pain (scale 4-6). albuterol 2021-04 Yes [id number] 2 puffs U nivers 90 2-16 with ity of mcg/actuati 00:00: spacer 4 [place] on inhaler 00 times a Medica l day for at Branch least 7 days tiZANidine 2021-04 Yes [id number] 2mg Take 1 [facility] 2 mg tablet 2-16 tablet by ity of 00:00: mouth [place] 00 every 6 Medical (six) Branch hours as needed for Pain (scale 4-6). albuterol 2021-04 Yes [id number] 2 puffs U nivers 90 2-16 with ity of mcg/actuati 00:00: spacer 4 [place] on inhaler 00 times a Medica l day for at Branch least 7 days tiZANidine 2021-04 Yes [id number] 2mg Take 1 [facility] 2 mg tablet 2-16 tablet by ity of 00:00: mouth [place] 00 every 6 Medical (six) Branch hours as needed for Pain (scale 4-6). albuterol 2021-04 Yes [id number] 2 puffs U nivers 90 2-16 with ity of mcg/actuati 00:00: spacer 4 [place] on inhaler 00 times a Medica l day for at Branch least 7 days tiZANidine 2021-04 Yes [id number] 2mg Take 1 [facility] 2 mg tablet 2-16 tablet by ity of 00:00: mouth [place] 00 every 6 Medical (six) Branch hours as needed for Pain (scale 4-6). albuterol 2021-04 Yes [id number] 2 puffs U nivers 90 2-16 with ity of mcg/actuati 00:00: spacer 4 [place] on inhaler 00 times a Medica l day for at Branch least 7 days tiZANidine 2021-04 Yes [id number] 2mg Take 1 [facility] 2 mg tablet 2-16 tablet by ity of 00:00: mouth [place] 00 every 6 Medical (six) Branch hours as needed for Pain (scale 4-6). albuterol 2021-04 Yes [id number] 2 puffs U nivers 90 2-16 with ity of mcg/actuati 00:00: spacer 4 [place] on inhaler 00 times a Medica l day for at Branch least 7 days tiZANidine 2021-04 Yes [id number] 2mg Take 1 [facility] 2 mg tablet 2-16 tablet by ity of 00:00: mouth [place] 00 every 6 Medical (six) Branch hours as needed for Pain (scale 4-6). albuterol 2021-04 Yes [id number] 2 puffs U nivers 90 2-16 with ity of mcg/actuati 00:00: spacer 4 [place] on inhaler 00 times a Medica l day for at Branch least 7 days tiZANidine 2021-04 Yes [id number] 2mg Take 1 [facility] 2 mg tablet 2-16 tablet by ity of 00:00: mouth [place] 00 every 6 Medical (six) Branch hours as needed for Pain (scale 4-6). albuterol 2021-04 Yes [id number] 2 puffs U nivers 90 2-16 with ity of mcg/actuati 00:00: spacer 4 [place] on inhaler 00 times a Medica l day for at Branch least 7 days tiZANidine 2021-04 Yes [id number] 2mg Take 1 [facility] 2 mg tablet 2-16 tablet by ity of 00:00: mouth [place] 00 every 6 Medical (six) Branch hours as needed for Pain (scale 4-6). albuterol 2021-04 Yes [id number] 2 puffs U nivers 90 2-16 with ity of mcg/actuati 00:00: spacer 4 [place] on inhaler 00 times a Medica l day for at Branch least 7 days tiZANidine 2021-04 Yes [id number] 2mg Take 1 [facility] 2 mg tablet 2-16 tablet by ity of 00:00: mouth [place] 00 every 6 Medical (six) Branch hours as needed for Pain (scale 4-6). albuterol 2021-04 Yes [id number] 2 puffs U nivers 90 2-16 with ity of mcg/actuati 00:00: spacer 4 [place] on inhaler 00 times a Medica l day for at Branch least 7 days tiZANidine 2021-04 Yes [id number] 2mg Take 1 [facility] 2 mg tablet 2-16 tablet by ity of 00:00: mouth [place] 00 every 6 Medical (six) Branch hours as needed for Pain (scale 4-6). albuterol 2021-04 Yes [id number] 2 puffs U nivers 90 2-16 with ity of mcg/actuati 00:00: spacer 4 [place] on inhaler 00 times a Medica l day for at Branch least 7 days tiZANidine 2021-04 Yes [id number] 2mg Take 1 [facility] 2 mg tablet 2-16 tablet by ity of 00:00: mouth [place] 00 every 6 Medical (six) Branch hours as needed for Pain (scale 4-6). albuterol 2021-04 Yes [id number] 2 puffs U nivers 90 2-16 with ity of mcg/actuati 00:00: spacer 4 [place] on inhaler 00 times a Medica l day for at Branch least 7 days tiZANidine 2021-04 Yes [id number] 2mg Take 1 [facility] 2 mg tablet 2-16 tablet by ity of 00:00: mouth [place] 00 every 6 Medical (six) Branch hours as needed for Pain (scale 4-6). albuterol 2021-04 Yes [id number] 2 puffs U nivers 90 2-16 with ity of mcg/actuati 00:00: spacer 4 [place] on inhaler 00 times a Medica l day for at Branch least 7 days tiZANidine 2021-04 Yes [id number] 2mg Take 1 [facility] 2 mg tablet 2-16 tablet by ity of 00:00: mouth [place] 00 every 6 Medical (six) Branch hours as needed for Pain (scale 4-6). albuterol 2021-04 Yes [id number] 2 puffs U nivers 90 2-16 with ity of mcg/actuati 00:00: spacer 4 [place] on inhaler 00 times a Medica l day for at Branch least 7 days tiZANidine 2021-04 Yes [id number] 2mg Take 1 [facility] 2 mg tablet 2-16 tablet by ity of 00:00: mouth [place] 00 every 6 Medical (six) Branch hours as needed for Pain (scale 4-6). albuterol 2021-04 Yes [id number] 2 puffs U nivers 90 2-16 with ity of mcg/actuati 00:00: spacer 4 [place] on inhaler 00 times a Medica l day for at Branch least 7 days tiZANidine 2021-04 Yes [id number] 2mg Take 1 [facility] 2 mg tablet 2-16 tablet by ity of 00:00: mouth [place] 00 every 6 Medical (six) Branch hours as needed for Pain (scale 4-6). albuterol 2021-04 Yes [id number] 2 puffs U nivers 90 2-16 with ity of mcg/actuati 00:00: spacer 4 [place] on inhaler 00 times a Medica l day for at Branch least 7 days tiZANidine 2021-04 Yes [id number] 2mg Take 1 [facility] 2 mg tablet 2-16 tablet by ity of 00:00: mouth [place] 00 every 6 Medical (six) Branch hours as needed for Pain (scale 4-6). albuterol 2021-04 Yes [id number] 2 puffs U nivers 90 2-16 with ity of mcg/actuati 00:00: spacer 4 [place] on inhaler 00 times a Medica l day for at Branch least 7 days albuterol 2021-04 Yes [id number] 2 puffs U nivers 90 2-16 with ity of mcg/actuati 00:00: spacer 4 [place] on inhaler 00 times a Medica l day for at Branch least 7 days albuterol 2021-04 Yes [id number] 2 puffs U nivers 90 2-16 with ity of mcg/actuati 00:00: spacer 4 [place] on inhaler 00 times a Medica l day for at Branch least 7 days albuterol 2021-04 Yes [id number] 2 puffs U nivers 90 2-16 with ity of mcg/actuati 00:00: spacer 4 [place] on inhaler 00 times a Medica l day for at Branch least 7 days albuterol 2021-04 Yes [id number] 2 puffs U nivers 90 2-16 with ity of mcg/actuati 00:00: spacer 4 [place] on inhaler 00 times a Medica l day for at Branch least 7 days albuterol 2021-04 Yes [id number] 2 puffs U nivers 90 2-16 with ity of mcg/actuati 00:00: [place] times a Medica l day for at Branch least 7 days albuterol 2021-04 Yes [id number] 2 puffs [facility] n[facility] 90 2-16 with ity of mcg/actuati 00:00: [place] times a Medica l day for at Branch least 7 days albuterol 2021-04 Yes [id number] 2 puffs [facility] 90 2-16 with ity of mcg/actuati 00:00: [place] times a Medica l day for at Branch least 7 days albuterol 2021-04 Yes [id number] 2 puffs [facility] 90 2-16 with ity of mcg/actuati 00:00: [place] times a Medica l day for at Branch least 7 days albuterol 2021-04 Yes [id number] 2 puffs [facility] 90 2-16 with ity of mcg/actuati 00:00: [place] times a Medica l day for at Branch least 7 days tiZANidine 2021-04- No [id number] 2mg Take 1 [facility] 2 mg tablet 05-30- tablet by it y of 00:00: 00:00 mouth [place] 00 :00 every 6 Medical (six) Branch hours as needed for Pain (scale 4-6). tiZANidine 2021-04- No [id number] 2mg Take 1 [facility] 2 mg tablet 2-16 -28 tablet by it y of 00:00: 00:00 mouth [place] 00 :00 every 6 Medical (six) Branch hours as needed for Pain (scale 4-6). ergocalcife 2021-04 Yes [id number] TAKE 1 [facility] rol, 2-09 CAPSULE BY ity of vitamin d2, 00:00: MOUTH [place] 1,250 mcg 00 EVERY TWO Medic al (50,000 WEEKS WITH Branch unit) FOOD capsule NIFEdipine 2021-04 Yes [id number] 60mg Take 1 [facility] XL 60 mg 24 2-09 tablet by [facility] of hr tablet 00:00: [place] 00 the Medical morning. Branch ergocalcife 2021-04 Yes [id number] TAKE 1 [facility] rol, 2-09 CAPSULE BY ity of vitamin d2, 00:00: MOUTH [place] 1,250 mcg 00 EVERY TWO Medic al (50,000 WEEKS WITH Branch unit) FOOD capsule NIFEdipine 2021-04 Yes [id number] 60mg Take 1 [facility] XL 60 mg 24 2-09 tablet by [facility] of hr tablet 00:00: [place] 00 the Medical morning. Branch ergocalcife 2021-04 Yes [id number] TAKE 1 [facility] rol, 2-09 CAPSULE BY ity of vitamin d2, 00:00: MOUTH [place] 1,250 mcg 00 EVERY TWO Medic al (50,000 WEEKS WITH Branch unit) FOOD capsule NIFEdipine 2021-04 Yes [id number] 60mg Take 1 [facility] XL 60 mg 24 2-09 tablet by [facility] of hr tablet 00:00: [place] 00 the Medical morning. Branch ergocalcife 2021-04 Yes [id number] TAKE 1 [facility] rol, 2-09 CAPSULE BY ity of vitamin d2, 00:00: MOUTH [place] 1,250 mcg 00 EVERY TWO Medic al (50,000 WEEKS WITH Branch unit) FOOD capsule NIFEdipine 2021-04 Yes [id number] 60mg Take 1 [facility] XL 60 mg 24 2-09 tablet by [facility] of hr tablet 00:00: [place] 00 the Medical morning. Branch ergocalcife 2021-04 Yes [id number] TAKE 1 [facility] rol, 2-09 CAPSULE BY ity of vitamin d2, 00:00: MOUTH [place] 1,250 mcg 00 EVERY TWO Medic al (50,000 WEEKS WITH Branch unit) FOOD capsule NIFEdipine 2021-04 Yes [id number] 60mg Take 1 [facility] XL 60 mg 24 2-09 tablet by [facility] of hr tablet 00:00: [place] 00 the Medical morning. Branch ergocalcife 2021-04 Yes [id number] TAKE 1 [facility] rol, 2-09 CAPSULE BY ity of vitamin d2, 00:00: MOUTH [place] 1,250 mcg 00 EVERY TWO Medic al (50,000 WEEKS WITH Branch unit) FOOD capsule NIFEdipine 2021-04 Yes [id number] 60mg Take 1 [facility] XL 60 mg 24 2-09 tablet by [facility] of hr tablet 00:00: [place] 00 the Medical morning. Branch ergocalcife 2021-04 Yes [id number] TAKE 1 [facility] rol, 2-09 CAPSULE BY ity of vitamin d2, 00:00: MOUTH [place] 1,250 mcg 00 EVERY TWO Medic al (50,000 WEEKS WITH Branch unit) FOOD capsule NIFEdipine 2021-04 Yes [id number] 60mg Take 1 [facility] XL 60 mg 24 2-09 tablet by [facility] of hr tablet 00:00: [place] 00 the Medical morning. Branch ergocalcife 2021-04 Yes [id number] TAKE 1 [facility] rol, 2-09 CAPSULE BY ity of vitamin d2, 00:00: MOUTH [place] 1,250 mcg 00 EVERY TWO Medic al (50,000 WEEKS WITH Branch unit) FOOD capsule NIFEdipine 2021-04 Yes [id number] 60mg Take 1 [facility] XL 60 mg 24 2-09 tablet by [facility] of hr tablet 00:00: [place] 00 the Medical morning. Branch ergocalcife 2021-04 Yes [id number] TAKE 1 [facility] rol, 2-09 CAPSULE BY ity of vitamin d2, 00:00: MOUTH [place] 1,250 mcg 00 EVERY TWO Medic al (50,000 WEEKS WITH Branch unit) FOOD capsule NIFEdipine 2021-04 Yes [id number] 60mg Take 1 [facility] XL 60 mg 24 2-09 tablet by [facility] of hr tablet 00:00: [place] 00 the Medical morning. Branch ergocalcife 2021-04 Yes [id number] TAKE 1 [facility] rol, 2-09 CAPSULE BY ity of vitamin d2, 00:00: MOUTH [place] 1,250 mcg 00 EVERY TWO Medic al (50,000 WEEKS WITH Branch unit) FOOD capsule NIFEdipine 2021-04 Yes [id number] 60mg Take 1 [facility] XL 60 mg 24 2-09 tablet by [facility] of hr tablet 00:00: [place] 00 the Medical morning. Branch ergocalcife 2021-04 Yes [id number] TAKE 1 [facility] rol, 2-09 CAPSULE BY ity of vitamin d2, 00:00: MOUTH [place] 1,250 mcg 00 EVERY TWO Medic al (50,000 WEEKS WITH Branch unit) FOOD capsule NIFEdipine 2021-04 Yes [id number] 60mg Take 1 [facility] XL 60 mg 24 2-09 tablet by [facility] of hr tablet 00:00: [place] 00 the Medical morning. Branch ergocalcife 2021-04 Yes [id number] TAKE 1 [facility] rol, 2-09 CAPSULE BY ity of vitamin d2, 00:00: MOUTH [place] 1,250 mcg 00 EVERY TWO Medic al (50,000 WEEKS WITH Branch unit) FOOD capsule NIFEdipine 2021-04 Yes [id number] 60mg Take 1 [facility] XL 60 mg 24 2-09 tablet by [facility] of hr tablet 00:00: [place] 00 the Medical morning. Branch ergocalcife 2021-04 Yes [id number] TAKE 1 [facility] rol, 2-09 CAPSULE BY ity of vitamin d2, 00:00: MOUTH [place] 1,250 mcg 00 EVERY TWO Medic al (50,000 WEEKS WITH Branch unit) FOOD capsule NIFEdipine 2021-04 Yes [id number] 60mg Take 1 [facility] XL 60 mg 24 2-09 tablet by [facility] of hr tablet 00:00: [place] 00 the Medical morning. Branch ergocalcife 2021-04 Yes [id number] TAKE 1 [facility] rol, 2-09 CAPSULE BY ity of vitamin d2, 00:00: MOUTH [place] 1,250 mcg 00 EVERY TWO Medic al (50,000 WEEKS WITH Branch unit) FOOD capsule NIFEdipine 2021-04 Yes [id number] 60mg Take 1 [facility] XL 60 mg 24 2-09 tablet by [facility] of hr tablet 00:00: [place] 00 the Medical morning. Branch ergocalcife 2021-04 Yes [id number] TAKE 1 [facility] rol, 2-09 CAPSULE BY ity of vitamin d2, 00:00: MOUTH [place] 1,250 mcg 00 EVERY TWO Medic al (50,000 WEEKS WITH Branch unit) FOOD capsule NIFEdipine 2021-04 Yes [id number] 60mg Take 1 [facility] XL 60 mg 24 2-09 tablet by [facility] of hr tablet 00:00: [place] 00 the Medical morning. Branch ergocalcife 2021-04 Yes [id number] TAKE 1 [facility] rol, 2-09 CAPSULE BY ity of vitamin d2, 00:00: MOUTH [place] 1,250 mcg 00 EVERY TWO Medic al (50,000 WEEKS WITH Branch unit) FOOD capsule NIFEdipine 2021-04 Yes [id number] 60mg Take 1 [facility] XL 60 mg 24 2-09 tablet by [facility] of hr tablet 00:00: [place] 00 the Medical morning. Branch ergocalcife 2021-04 Yes [id number] TAKE 1 [facility] rol, 2-09 CAPSULE BY ity of vitamin d2, 00:00: MOUTH [place] 1,250 mcg 00 EVERY TWO Medic al (50,000 WEEKS WITH Branch unit) FOOD capsule NIFEdipine 2021-04 Yes [id number] 60mg Take 1 [facility] XL 60 mg 24 2-09 tablet by [facility] of hr tablet 00:00: [place] 00 the Medical morning. Branch ergocalcife 2021-04 Yes [id number] TAKE 1 [facility] rol, 2-09 CAPSULE BY ity of vitamin d2, 00:00: MOUTH [place] 1,250 mcg 00 EVERY TWO Medic al (50,000 WEEKS WITH Branch unit) FOOD capsule NIFEdipine 2021-04 Yes [id number] 60mg Take 1 [facility] XL 60 mg 24 2-09 tablet by [facility] of hr tablet 00:00: [place] 00 the Medical morning. Branch ergocalcife 2021-04 Yes [id number] TAKE 1 [facility] rol, 2-09 CAPSULE BY ity of vitamin d2, 00:00: MOUTH [place] 1,250 mcg 00 EVERY TWO Medic al (50,000 WEEKS WITH Branch unit) FOOD capsule NIFEdipine 2021-04 Yes [id number] 60mg Take 1 [facility] XL 60 mg 24 2-09 tablet by [facility]y of hr tablet 00:00: [place] 00 the Medical morning. Branch ergocalcife 2021-04 Yes [id number] TAKE 1 [facility] rol, 2-09 CAPSULE BY ity of vitamin d2, 00:00: MOUTH [place] 1,250 mcg 00 EVERY TWO Medic al (50,000 WEEKS WITH Branch unit) FOOD capsule NIFEdipine 2021-04 Yes [id number] 60mg Take 1 [facility] nivers XL 60 mg 24 2-09 tablet by [facility] of hr tablet 00:00: [place] 00 the Medical morning. Branch ergocalcife 2021-04 Yes [id number] TAKE 1 [facility] rol, 2-09 CAPSULE BY ity of vitamin d2, 00:00: MOUTH [place] 1,250 mcg 00 EVERY TWO Medic al (50,000 WEEKS WITH Branch unit) FOOD capsule NIFEdipine 2021-04 Yes [id number] 60mg Take 1 [facility] XL 60 mg 24 2-09 tablet by [facility] of hr tablet 00:00: mouth [place] 00 the Medical morning. Branch ergocalcife 2021-04 Yes [id number] TAKE 1 [facility] rol, 2-09 CAPSULE BY ity of vitamin d2, 00:00: MOUTH [place] 1,250 mcg 00 EVERY TWO Medic al (50,000 WEEKS WITH Branch unit) FOOD capsule NIFEdipine 2021-04 Yes [id number] 60mg Take 1 [facility] n[facility] XL 60 mg 24 2-09 tablet by ity of hr tablet 00:00: mouth [place] 00 the Medical morning. Branch ergocalcife 2021-04 Yes [id number] TAKE 1 [facility] rol, 2-09 CAPSULE BY ity of vitamin d2, 00:00: MOUTH [place] 1,250 mcg 00 EVERY TWO Medic al (50,000 WEEKS WITH Branch unit) FOOD capsule NIFEdipine 2021-04 Yes [id number] 60mg Take 1 [facility] n[facility] XL 60 mg 24 2-09 tablet by ity of hr tablet 00:00: mouth [place] 00 the Medical morning. Branch ergocalcife 2021-04 Yes [id number] TAKE 1 [facility] rol, 2-09 CAPSULE BY ity of vitamin d2, 00:00: MOUTH [place] 1,250 mcg 00 EVERY TWO Medic al (50,000 WEEKS WITH Branch unit) FOOD capsule NIFEdipine 2021-04 Yes [id number] 60mg Take 1 [facility] n[facility] XL 60 mg 24 2-09 tablet by ity of hr tablet 00:00: mouth [place] 00 the Medical morning. Branch ergocalcife 2021-04 Yes [id number] TAKE 1 [facility] rol, 2-09 CAPSULE BY ity of vitamin d2, 00:00: MOUTH [place] 1,250 mcg 00 EVERY TWO Medic al (50,000 WEEKS WITH Branch unit) FOOD capsule NIFEdipine 2021-04 Yes [id number] 60mg Take 1 [facility] nivers XL 60 mg 24 2-09 tablet by ity of hr tablet 00:00: mouth [place] 00 the Medical morning. Branch ergocalcife 2021-04 Yes [id number] TAKE 1 [facility] rol, 2-09 CAPSULE BY ity of vitamin d2, 00:00: MOUTH [place] 1,250 mcg 00 EVERY TWO Medic al (50,000 WEEKS WITH Branch unit) FOOD capsule NIFEdipine 2021-04 Yes [id number] 60mg Take 1 [facility] n[facility] XL 60 mg 24 2-09 tablet by ity of hr tablet 00:00: mouth [place] 00 the Medical morning. Branch ergocalcife 2021-04 Yes [id number] TAKE 1 [facility] rol, 2-09 CAPSULE BY ity of vitamin d2, 00:00: MOUTH [place] 1,250 mcg 00 EVERY TWO Medic al (50,000 WEEKS WITH Branch unit) FOOD capsule ergocalcife 2021- Yes [id number] TAKE 1 [facility] rol, 2-09 CAPSULE BY ity of vitamin d2, 00:00: MOUTH [place] 1,250 mcg 00 EVERY TWO Medic al (50,000 WEEKS WITH Branch unit) FOOD capsule ergocalcife 2021- Yes [id number] TAKE 1 [facility] rol, 2-09 CAPSULE BY ity of vitamin d2, 00:00: MOUTH [place] 1,250 mcg 00 EVERY TWO Medic al (50,000 WEEKS WITH Branch unit) FOOD capsule ergocalcife 2021- Yes [id number] TAKE 1 [facility] rol, 2-09 CAPSULE BY ity of vitamin d2, 00:00: MOUTH [place] 1,250 mcg 00 EVERY TWO Medic al (50,000 WEEKS WITH Branch unit) FOOD capsule ergocalcife 2021- Yes [id number] TAKE 1 [facility] rol, 2-09 CAPSULE BY ity of vitamin d2, 00:00: MOUTH [place] 1,250 mcg 00 EVERY TWO Medic al (50,000 WEEKS WITH Branch unit) FOOD capsule ergocalcife 2021- Yes [id number] TAKE 1 [facility] rol, 2-09 CAPSULE BY ity of vitamin d2, 00:00: MOUTH [place] 1,250 mcg 00 EVERY TWO Medic al (50,000 WEEKS WITH Branch unit) FOOD capsule ergocalcife 2021- Yes [id number] TAKE 1 [facility] rol, 2-09 CAPSULE BY ity of vitamin d2, 00:00: MOUTH [place] 1,250 mcg 00 EVERY TWO Medic al (50,000 WEEKS WITH Branch unit) FOOD capsule ergocalcife 2021-1 Yes [id number] TAKE 1 [facility] rol, 2-09 CAPSULE BY ity of vitamin d2, 00:00: MOUTH [place] 1,250 mcg 00 EVERY TWO Medic al (50,000 WEEKS WITH Branch unit) FOOD capsule ergocalcife 2021- Yes [id number] TAKE 1 [facility] rol, 2-09 CAPSULE BY ity of vitamin d2, 00:00: MOUTH [place] 1,250 mcg 00 EVERY TWO Medic al (50,000 WEEKS WITH Branch unit) FOOD capsule ergocalcife 2021- Yes [id number] TAKE 1 [facility] rol, 2-09 CAPSULE BY ity of vitamin d2, 00:00: MOUTH [place] 1,250 mcg 00 EVERY TWO Medic al (50,000 WEEKS WITH Branch unit) FOOD capsule ergocalcife 2-1 Yes [id number] TAKE 1 [facility] rol, 2-09 CAPSULE BY ity of vitamin d2, 00:00: MOUTH [place] 1,250 mcg 00 EVERY TWO Medic al (50,000 WEEKS WITH Branch unit) FOOD capsule ergocalcife 2-1 Yes [id number] TAKE 1 [facility] rol, 2-09 CAPSULE BY ity of vitamin d2, 00:00: MOUTH [place] 1,250 mcg 00 EVERY TWO Medic al (50,000 WEEKS WITH Branch unit) FOOD capsule ergocalcife 2-1 Yes [id number] TAKE 1 [facility] rol, 2-09 CAPSULE BY ity of vitamin d2, 00:00: MOUTH [place] 1,250 mcg 00 EVERY TWO Medic al (50,000 WEEKS WITH Branch unit) FOOD capsule ergocalcife 2021-1 Yes [id number] TAKE 1 [facility] rol, 2-09 CAPSULE BY ity of vitamin d2, 00:00: MOUTH [place] 1,250 mcg 00 EVERY TWO Medic al (50,000 WEEKS WITH Branch unit) FOOD capsule ergocalcife 2021-1 Yes [id number] TAKE 1 [facility] rol, 2-09 CAPSULE BY ity of vitamin d2, 00:00: MOUTH [place] 1,250 mcg 00 EVERY TWO Medic al (50,000 WEEKS WITH Branch unit) FOOD capsule ergocalcife 2021-1 Yes [id number] TAKE 1 [facility] rol, 2-09 CAPSULE BY ity of vitamin d2, 00:00: MOUTH [place] 1,250 mcg 00 EVERY TWO Medic al (50,000 WEEKS WITH Branch unit) FOOD capsule ergocalcife 2-1 Yes [id number] TAKE 1 [facility] rol, 2-09 CAPSULE BY ity of vitamin d2, 00:00: MOUTH [place] 1,250 mcg 00 EVERY TWO Medic al (50,000 WEEKS WITH Branch unit) FOOD capsule ergocalcife 2-1 Yes [id number] TAKE 1 [facility] rol, 2-09 CAPSULE BY ity of vitamin d2, 00:00: MOUTH [place] 1,250 mcg 00 EVERY TWO Medic al (50,000 WEEKS WITH Branch unit) FOOD capsule ergocalcife 2-1 Yes [id number] TAKE 1 [facility] rol, 2-09 CAPSULE BY ity of vitamin d2, 00:00: MOUTH [place] 1,250 mcg 00 EVERY TWO Medic al (50,000 WEEKS WITH Branch unit) FOOD capsule ergocalcife 2021-1 Yes [id number] TAKE 1 [facility] rol, 2-09 CAPSULE BY ity of vitamin d2, 00:00: MOUTH [place] 1,250 mcg 00 EVERY TWO Medic al (50,000 WEEKS WITH Branch unit) FOOD capsule ergocalcife 2021-1 Yes [id number] TAKE 1 [facility] rol, 2-09 CAPSULE BY ity of vitamin d2, 00:00: MOUTH [place] 1,250 mcg 00 EVERY TWO Medic al (50,000 WEEKS WITH Branch unit) FOOD capsule ergocalcife 2021-1 Yes [id number] TAKE 1 [facility] rol, 2-09 CAPSULE BY ity of vitamin d2, 00:00: MOUTH [place] 1,250 mcg 00 EVERY TWO Medic al (50,000 WEEKS WITH Branch unit) FOOD capsule ergocalcife 2021-1 Yes [id number] TAKE 1 [facility] rol, 2-09 CAPSULE BY ity of vitamin d2, 00:00: MOUTH [place] 1,250 mcg 00 EVERY TWO Medic al (50,000 WEEKS WITH Branch unit) FOOD capsule ergocalcife 2021-1 Yes [id number] TAKE 1 [facility] rol, 2-09 CAPSULE BY ity of vitamin d2, 00:00: MOUTH [place] 1,250 mcg 00 EVERY TWO Medic al (50,000 WEEKS WITH Branch unit) FOOD capsule ergocalcife 2021-1 Yes [id number] TAKE 1 [facility] rol, 2-09 CAPSULE BY ity of vitamin d2, 00:00: MOUTH [place] 1,250 mcg 00 EVERY TWO Medic al (50,000 WEEKS WITH Branch unit) FOOD capsule ergocalcife 2-1 Yes [id number] TAKE 1 [facility] rol, 2-09 CAPSULE BY ity of vitamin d2, 00:00: MOUTH [place] 1,250 mcg 00 EVERY TWO Medic al (50,000 WEEKS WITH Branch unit) FOOD capsule ergocalcife 2-1 Yes [id number] TAKE 1 [facility] rol, 2-09 CAPSULE BY ity of vitamin d2, 00:00: MOUTH [place] 1,250 mcg 00 EVERY TWO Medic al (50,000 WEEKS WITH Branch unit) FOOD capsule ergocalcife 2-1 Yes [id number] TAKE 1 [facility] rol, 2-09 CAPSULE BY ity of vitamin d2, 00:00: MOUTH [place] 1,250 mcg 00 EVERY TWO Medic al (50,000 WEEKS WITH Branch unit) FOOD capsule ergocalcife 2021-04 Yes [id number] TAKE 1 [facility] rol, 2-09 CAPSULE BY ity of vitamin d2, 00:00: MOUTH [place] 1,250 mcg 00 EVERY TWO Medic al (50,000 WEEKS WITH Branch unit) FOOD capsule ergocalcife 2021-04 Yes [id number] TAKE 1 [facility] rol, 2-09 CAPSULE BY ity of vitamin d2, 00:00: MOUTH [place] 1,250 mcg 00 EVERY TWO Medic al (50,000 WEEKS WITH Branch unit) FOOD capsule ergocalcife 2021-04 Yes [id number] TAKE 1 [facility] rol, 2-09 CAPSULE BY ity of vitamin d2, 00:00: MOUTH [place] 1,250 mcg 00 EVERY TWO Medic al (50,000 WEEKS WITH Branch unit) FOOD capsule ergocalcife 2021-04 Yes [id number] TAKE 1 [facility] rol, 2-09 CAPSULE BY ity of vitamin d2, 00:00: MOUTH [place] 1,250 mcg 00 EVERY TWO Medic al (50,000 WEEKS WITH Branch unit) FOOD capsule ergocalcife 2021-04 Yes [id number] TAKE 1 [facility] rol, 2-09 CAPSULE BY ity of vitamin d2, 00:00: MOUTH [place] 1,250 mcg 00 EVERY TWO Medic al (50,000 WEEKS WITH Branch unit) FOOD capsule ergocalcife 2021-04 Yes [id number] TAKE 1 [facility] rol, 2-09 CAPSULE BY ity of vitamin d2, 00:00: MOUTH [place] 1,250 mcg 00 EVERY TWO Medic al (50,000 WEEKS WITH Branch unit) FOOD capsule ergocalcife 2021-04 Yes [id number] TAKE 1 [facility] rol, 2-09 CAPSULE BY ity of vitamin d2, 00:00: MOUTH [place] 1,250 mcg 00 EVERY TWO Medic al (50,000 WEEKS WITH Branch unit) FOOD capsule NIFEdipine 2021-04- No [id number] 60mg Take 1 [facility] XL 60 mg 24 05-23 tablet by it y of hr tablet 00:00: 00:00 mouth [place] 00 :00 the Medical morning. Branch bismuth-met 2021-04 Yes [place] 140 [facility] ronidazole- -28 mg-125 ity of tetracyclin 14:47: mg-125 mg [place] (KEVIN) 17 capsule Medica l 140-125-125 Branch mg per capsule doxycycline 2021-04 Yes doxycyclin [facility] hyclate 100 - e hyclate ity of mg capsule 14:47: [address] 2021-04 Yes Pylera 140 [facility] ronidazole- 1-28 mg-125 ity of tetracyclin 14:47: mg-125 mg [place] (PYLERA) 17 capsule Medica l 140-125-125 Branch mg per capsule doxycycline 2021-04 Yes doxycyclin [facility] hyclate 100 05-11 e hyclate ity of mg capsule 14:47: [address] 2021-04 Yes [place] 140 [facility] ronidazole- 1-28 mg-125 ity of tetracyclin 14:47: mg-125 mg [place] (PYLERA) 17 capsule Medica l 140-125-125 Branch mg per capsule doxycycline 2021-04 Yes doxycyclin [facility] hyclate 100 05-11 e hyclate ity of mg capsule 14:47: [address] 2021-04 Yes [place] 140 [facility] ronidazole- 1-28 mg-125 ity of tetracyclin 14:47: mg-125 mg [place] (PYLERA) capsule Medica l 140-125-125 Branch mg per capsule doxycycline 2021-04 Yes doxycyclin [facility] hyclate 100 05-11 e hyclate ity of mg capsule 14:47: [address] 2021-04 Yes [place] 140 [facility] ronidazole- 1-28 mg-125 ity of tetracyclin 14:47: mg-125 mg [place] (PYLERA) 17 capsule Medica l 140-125-125 Branch mg per capsule doxycycline 2021-04 Yes doxycyclin [facility] hyclate 100 -28 e hyclate ity of mg capsule 14:47: [address] 2021-04 Yes [place] 140 [facility] ronidazole- 1-28 mg-125 ity of tetracyclin 14:47: mg-125 mg [place] (PYLERA) 17 capsule Medica l 140-125-125 Branch mg per capsule doxycycline 2021-04 Yes doxycyclin [facility] hyclate 100 05-11 e hyclate ity of mg capsule 14:47: [address] 2021-04 Yes [place] 140 [facility] ronidazole- 1-28 mg-125 ity of tetracyclin 14:47: mg-125 mg [place] (PYLERA) 17 capsule Medica l 140-125-125 Branch mg per capsule doxycycline 2021-04 Yes doxycyclin [facility] hyclate 100 05-11 e hyclate ity of mg capsule 14:47: 100 mg [place] [address] capsule [facility] 2021-04 Yes [place] 140 [facility] ronidazole- 1-28 mg-125 ity of tetracyclin 14:47: mg-125 mg [place] (PYLERA) 17 capsule Medica l 140-125-125 Branch mg per capsule doxycycline 2021-04 Yes doxycyclin [facility] hyclate 100 05-11 e hyclate ity of mg capsule 14:47: [address] 2021-04 Yes [place] 140 [facility] ronidazole- 1-28 mg-125 ity of tetracyclin 14:47: mg-125 mg [place] (PYLERA) 17 capsule Medica l 140-125-125 Branch mg per capsule doxycycline 2021-04 Yes doxycyclin [facility] hyclate 100 05-11 e hyclate ity of mg capsule 14:47: [address] 2021-04 Yes [place] 140 [facility] ronidazole- 1-28 mg-125 ity of tetracyclin 14:47: mg-125 mg [place] (PYLERA) 17 capsule Medica l 140-125-125 Branch mg per capsule doxycycline 2021-04 Yes doxycyclin [facility] hyclate 100 05-11 e hyclate ity of mg capsule 14:47: 100 mg [place] [address] capsule [facility] 2021-04 Yes [place] 140 [facility] ronidazole- 1-28 mg-125 ity of tetracyclin 14:47: mg-125 mg [place] (PYLERA) 17 capsule Medica l 140-125-125 Branch mg per capsule doxycycline 2021-04 Yes doxycyclin [facility] hyclate 100 05-11 e hyclate ity of mg capsule 14:47: 100 mg [place] [address] capsule [facility] 2021-04 Yes [place] 140 [facility] ronidazole- 1-28 mg-125 ity of tetracyclin 14:47: mg-125 mg [place] (PYLERA) 17 capsule Medica l 140-125-125 Branch mg per capsule doxycycline 2021-04 Yes doxycyclin [facility] hyclate 100 -28 e hyclate ity of mg capsule 14:47: [address] 2021-04 Yes [place] 140 [facility] ronidazole- 1-28 mg-125 ity of tetracyclin 14:47: mg-125 mg [place] (PYLERA) 17 capsule Medica l 140-125-125 Branch mg per capsule doxycycline 2021-04 Yes doxycyclin [facility] hyclate 100 -28 e hyclate ity of mg capsule 14:47: [address] 2021-04 Yes [place] 140 [facility] ronidazole- 1-28 mg-125 ity of tetracyclin 14:47: mg-125 mg [place] (PYLERA) capsule Medica l 140-125-125 Branch mg per capsule doxycycline 2021-04 Yes doxycyclin [facility] hyclate 100 -28 e hyclate ity of mg capsule 14:47: [address] 2021-04 Yes [place] 140 [facility] ronidazole- 1-28 mg-125 ity of tetracyclin 14:47: mg-125 mg [place] (PYLERA) 17 capsule Medica l 140-125-125 Branch mg per capsule doxycycline 2021-04 Yes doxycyclin [facility] hyclate 100 -28 e hyclate ity of mg capsule 14:47: [address] 2021-04 Yes [place] 140 [facility] ronidazole- 1-28 mg-125 ity of tetracyclin 14:47: mg-125 mg [place] (PYLERA) 17 capsule Medica l 140-125-125 Branch mg per capsule doxycycline 2021-04 Yes doxycyclin [facility] hyclate 100 -28 e hyclate ity of mg capsule 14:47: [address] 2021-04 Yes [place] 140 [facility] ronidazole- 1-28 mg-125 ity of tetracyclin 14:47: mg-125 mg [place] (PYLERA) 17 capsule Medica l 140-125-125 Branch mg per capsule doxycycline 2021-04 Yes doxycyclin [facility] hyclate 100 - e hyclate ity of mg capsule 14:47: 100 mg [place] [address] capsule [facility] 2021-04 Yes [place] 140 [facility] ronidazole- 1-28 mg-125 ity of tetracyclin 14:47: mg-125 mg [place] (PYLERA) 17 capsule Medica l 140-125-125 Branch mg per capsule doxycycline 2021-04 Yes doxycyclin [facility] hyclate 100 - e hyclate ity of mg capsule 14:47: 100 mg [place] [address] capsule [facility] 2021-04 Yes [place] 140 [facility] ronidazole- 1-28 mg-125 ity of tetracyclin 14:47: mg-125 mg [place] (PYLERA) 17 capsule Medica l 140-125-125 Branch mg per capsule doxycycline 2021-04 Yes doxycyclin [facility] hyclate 100 05-11 e hyclate ity of mg capsule 14:47: 100 mg [place] [address] capsule [facility] 2021-04 Yes [place] 140 [facility] ronidazole- 1-28 mg-125 ity of tetracyclin 14:47: mg-125 mg [place] (PYLERA) 17 capsule Medica l 140-125-125 Branch mg per capsule doxycycline 2021-04 Yes doxycyclin [facility] hyclate 100 - e hyclate ity of mg capsule 14:47: 100 mg [place] [address] capsule [facility] 2021-04 Yes [place] 140 [facility] ronidazole- 1-28 mg-125 ity of tetracyclin 14:47: mg-125 mg [place] (PYLERA) 17 capsule Medica l 140-125-125 Branch mg per capsule doxycycline 2021-04 Yes doxycyclin [facility] hyclate 100 -28 e hyclate ity of mg capsule 14:47: 100 mg [place] [address] capsule [facility] 2021-04 Yes [place] 140 [facility] ronidazole- 1-28 mg-125 ity of tetracyclin 14:47: mg-125 mg [place] (PYLERA) 17 capsule Medica l 140-125-125 Branch mg per capsule doxycycline 2021-04 Yes doxycyclin [facility] hyclate 100 - e hyclate ity of mg capsule 14:47: 100 mg [place] [address] capsule [facility] 2021-04 Yes [place] 140 [facility] ronidazole- 1-28 mg-125 ity of tetracyclin 14:47: mg-125 mg [place] (PYLERA) 17 capsule Medica l 140-125-125 Branch mg per capsule doxycycline 2021-04 Yes doxycyclin [facility] hyclate 100 05-11 e hyclate ity of mg capsule 14:47: 100 mg [place] [address] capsule [facility] 2021-04 Yes [place] 140 [facility] ronidazole- 1-28 mg-125 ity of tetracyclin 14:47: mg-125 mg [place] (PYLERA) 17 capsule Medica l 140-125-125 Branch mg per capsule doxycycline 2021-04 Yes doxycyclin [facility] hyclate 100 05-11 e hyclate ity of mg capsule 14:47: [address] 2021-04 Yes [place] 140 [facility] ronidazole- 1-28 mg-125 ity of tetracyclin 14:47: mg-125 mg [place] (PYLERA) capsule Medica l 140-125-125 Branch mg per capsule doxycycline 2021-04 Yes doxycyclin [facility] hyclate 100 05-11 e hyclate ity of mg capsule 14:47: [address] 2021-04 Yes [place] 140 [facility] ronidazole- 1-28 mg-125 ity of tetracyclin 14:47: mg-125 mg [place] (PYLERA) 17 capsule Medica l 140-125-125 Branch mg per capsule doxycycline 2021-04 Yes doxycyclin [facility] hyclate 100 - e hyclate ity of mg capsule 14:47: 100 mg [place] [id number] capsule [facility] 2021-04 Yes Pylera 140 [facility] ronidazole- 1-28 mg-125 ity of tetracyclin 14:47: mg-125 mg [place] (PYLERA) 17 capsule Medica l 140-125-125 Branch mg per capsule doxycycline 2021-04 Yes doxycyclin [facility] hyclate 100 1-28 e hyclate ity of mg capsule 14:47: 100 mg [place] [address] capsule [facility] 2021-04 Yes [place] 140 [facility] ronidazole- 1-28 mg-125 ity of tetracyclin 14:47: mg-125 mg [place] (PYLERA) 17 capsule Medica l 140-125-125 Branch mg per capsule doxycycline 2021-04 Yes doxycyclin [facility] hyclate 100 1-28 e hyclate ity of mg capsule 14:47: 100 mg [place] [address] capsule [facility] Yes [place] 140 [facility] ronidazole- 1-28 mg-125 ity of tetracyclin 14:47: mg-125 mg [place] (PYLERA) 17 capsule Medica l 140-125-125 Branch mg per [facility] Yes [place] 140 [facility] ronidazole- 1-28 mg-125 ity of tetracyclin 14:47: mg-125 mg [place] (PYLERA) 17 capsule Medica l 140-125-125 Branch mg per capsule gabapentin 2021-04 Yes [id number] 100mg Take 1 [facility] 100 mg 1-28 capsule by ity of capsule 00:00: mouth in [address] and 1 capsule at noon and 1 capsule in the evening. gabapentin 2021-04 Yes [id number] 100mg Take 1 [facility] 100 mg 1-28 capsule by ity of capsule 00:00: mouth in [address] and 1 capsule at noon and 1 capsule in the evening. gabapentin 2021-04 Yes [id number] 100mg Take 1 [facility] 100 mg 1-28 capsule by ity of capsule 00:00: mouth in [address] and 1 capsule at noon and 1 capsule in the evening. gabapentin 2021-04 Yes [id number] 100mg Take 1 [facility] 100 mg 1-28 capsule by ity of capsule 00:00: mouth in [address] and 1 capsule at noon and 1 capsule in the evening. gabapentin 2021-04 Yes [id number] 100mg Take 1 [facility] 100 mg 1-28 capsule by ity of capsule 00:00: mouth in [address] and 1 capsule at noon and 1 capsule in the evening. gabapentin 2021-04 Yes [id number] 100mg Take 1 [facility] 100 mg 1-28 capsule by ity of capsule 00:00: mouth in [address] morning [place] and 1 capsule at noon and 1 capsule in the evening. gabapentin 202-1 Yes [id number] 100mg Take 1 [facility] 100 mg 1-28 capsule by ity of capsule 00:00: mouth in [address] morning [place] and 1 capsule at noon and 1 capsule in the evening. gabapentin 2021- Yes [id number] 100mg Take 1 [facility] 100 mg 1-28 capsule by ity of capsule 00:00: mouth in [address] morning [place] and 1 capsule at noon and 1 capsule in the evening. gabapentin 2021- Yes [id number] 100mg Take 1 [facility] 100 mg 1-28 capsule by ity of capsule 00:00: mouth in [address] and 1 capsule at noon and 1 capsule in the evening. gabapentin 2021- Yes [id number] 100mg Take 1 [facility] 100 mg 1-28 capsule by ity of capsule 00:00: mouth in [address] and 1 capsule at noon and 1 capsule in the evening. gabapentin 2021- Yes [id number] 100mg Take 1 [facility] 100 mg 1-28 capsule by ity of capsule 00:00: mouth in [address] and 1 capsule at noon and 1 capsule in the evening. gabapentin 2021- Yes [id number] 100mg Take 1 [facility] 100 mg 1-28 capsule by ity of capsule 00:00: mouth in [address] and 1 capsule at noon and 1 capsule in the evening. gabapentin 2021- Yes [id number] 100mg Take 1 [facility] 100 mg 1-28 capsule by ity of capsule 00:00: mouth in [address] and 1 capsule at noon and 1 capsule in the evening. gabapentin 202-1 Yes [id number] 100mg Take 1 [facility] 100 mg 1-28 capsule by ity of capsule 00:00: mouth in [address] and 1 capsule at noon and 1 capsule in the evening. gabapentin 2021-1 Yes [id number] 100mg Take 1 [facility] 100 mg 1-28 capsule by ity of capsule 00:00: mouth in [address] and 1 capsule at noon and 1 capsule in the evening. gabapentin 2021- Yes [id number] 100mg Take 1 [facility] 100 mg 1-28 capsule by ity of capsule 00:00: mouth in [address] morning [place] and 1 capsule at noon and 1 capsule in the evening. gabapentin 202-1 Yes [id number] 100mg Take 1 [facility] 100 mg 1-28 capsule by ity of capsule 00:00: mouth in [address] morning [place] and 1 capsule at noon and 1 capsule in the evening. gabapentin 2021- Yes [id number] 100mg Take 1 [facility] 100 mg 1-28 capsule by ity of capsule 00:00: mouth in [address] morning [place] and 1 capsule at noon and 1 capsule in the evening. gabapentin 2021- Yes [id number] 100mg Take 1 [facility] 100 mg 1-28 capsule by ity of capsule 00:00: mouth in [address] and 1 capsule at noon and 1 capsule in the evening. gabapentin 2021- Yes [id number] 100mg Take 1 [facility] 100 mg 1-28 capsule by ity of capsule 00:00: mouth in [address] and 1 capsule at noon and 1 capsule in the evening. gabapentin 2021- Yes [id number] 100mg Take 1 [facility] 100 mg 1-28 capsule by ity of capsule 00:00: mouth in [address] and 1 capsule at noon and 1 capsule in the evening. gabapentin 2021- Yes [id number] 100mg Take 1 [facility] 100 mg 1-28 capsule by ity of capsule 00:00: mouth in [address] and 1 capsule at noon and 1 capsule in the evening. gabapentin 2021- Yes [id number] 100mg Take 1 [facility] 100 mg 1-28 capsule by ity of capsule 00:00: mouth in [address] and 1 capsule at noon and 1 capsule in the evening. gabapentin 202-1 Yes [id number] 100mg Take 1 [facility] 100 mg 1-28 capsule by ity of capsule 00:00: mouth in [address] and 1 capsule at noon and 1 capsule in the evening. gabapentin 2021-1 Yes [id number] 100mg Take 1 [facility] 100 mg 1-28 capsule by ity of capsule 00:00: mouth in [address] and 1 capsule at noon and 1 capsule in the evening. gabapentin 2021- Yes [id number] 100mg Take 1 [facility] 100 mg 1-28 capsule by ity of capsule 00:00: mouth in [address] morning [place] and 1 capsule at noon and 1 capsule in the evening. gabapentin 202-1 Yes [id number] 100mg Take 1 [facility] 100 mg 1-28 capsule by ity of capsule 00:00: mouth in [address] morning [place] and 1 capsule at noon and 1 capsule in the evening. gabapentin 2021- Yes [id number] 100mg Take 1 [facility] 100 mg 1-28 capsule by ity of capsule 00:00: mouth in [address] morning [place] and 1 capsule at noon and 1 capsule in the evening. gabapentin 2021- Yes [id number] 100mg Take 1 [facility] 100 mg 1-28 capsule by ity of capsule 00:00: mouth in [address] and 1 capsule at noon and 1 capsule in the evening. gabapentin 2021- Yes [id number] 100mg Take 1 [facility] 100 mg 1-28 capsule by ity of capsule 00:00: mouth in [address] and 1 capsule at noon and 1 capsule in the evening. gabapentin 2021- Yes [id number] 100mg Take 1 [facility] 100 mg 1-28 capsule by ity of capsule 00:00: mouth in [address] and 1 capsule at noon and 1 capsule in the evening. gabapentin 2021- Yes [id number] 100mg Take 1 [facility] 100 mg 1-28 capsule by ity of capsule 00:00: mouth in [address] and 1 capsule at noon and 1 capsule in the evening. gabapentin 2021- Yes [id number] 100mg Take 1 [facility] 100 mg 1-28 capsule by ity of capsule 00:00: mouth in [address] and 1 capsule at noon and 1 capsule in the evening. gabapentin 202-1 Yes [id number] 100mg Take 1 [facility] 100 mg 1-28 capsule by ity of capsule 00:00: mouth in [address] and 1 capsule at noon and 1 capsule in the evening. gabapentin 2021-1 Yes [id number] 100mg Take 1 [facility] 100 mg 1-28 capsule by ity of capsule 00:00: mouth in [address] and 1 capsule at noon and 1 capsule in the evening. gabapentin 2021- Yes [id number] 100mg Take 1 [facility] 100 mg 1-28 capsule by ity of capsule 00:00: mouth in [address] morning [place] and 1 capsule at noon and 1 capsule in the evening. gabapentin 202-1 Yes [id number] 100mg Take 1 [facility] 100 mg 1-28 capsule by ity of capsule 00:00: mouth in [address] morning [place] and 1 capsule at noon and 1 capsule in the evening. gabapentin 2021- Yes [id number] 100mg Take 1 [facility] 100 mg 1-28 capsule by ity of capsule 00:00: mouth in [address] morning [place] and 1 capsule at noon and 1 capsule in the evening. gabapentin 2021- Yes [id number] 100mg Take 1 [facility] 100 mg 1-28 capsule by ity of capsule 00:00: mouth in [address] and 1 capsule at noon and 1 capsule in the evening. gabapentin 2021- Yes [id number] 100mg Take 1 [facility] 100 mg 1-28 capsule by ity of capsule 00:00: mouth in [address] and 1 capsule at noon and 1 capsule in the evening. gabapentin 2021- Yes [id number] 100mg Take 1 [facility] 100 mg 1-28 capsule by ity of capsule 00:00: mouth in [address] and 1 capsule at noon and 1 capsule in the evening. gabapentin 2021- Yes [id number] 100mg Take 1 [facility] 100 mg 1-28 capsule by ity of capsule 00:00: mouth in [address] and 1 capsule at noon and 1 capsule in the evening. gabapentin 2021- Yes [id number] 100mg Take 1 [facility] 100 mg 1-28 capsule by ity of capsule 00:00: mouth in [address] and 1 capsule at noon and 1 capsule in the evening. gabapentin 202-1 Yes [id number] 100mg Take 1 [facility] 100 mg 1-28 capsule by ity of capsule 00:00: mouth in [address] and 1 capsule at noon and 1 capsule in the evening. gabapentin 2021-1 Yes [id number] 100mg Take 1 [facility] 100 mg 1-28 capsule by ity of capsule 00:00: mouth in [address] and 1 capsule at noon and 1 capsule in the evening. gabapentin 2021- Yes [id number] 100mg Take 1 [facility] 100 mg 1-28 capsule by ity of capsule 00:00: mouth in [address] morning [place] and 1 capsule at noon and 1 capsule in the evening. gabapentin 202-1 Yes [id number] 100mg Take 1 [facility] 100 mg 1-28 capsule by ity of capsule 00:00: mouth in [address] morning [place] and 1 capsule at noon and 1 capsule in the evening. gabapentin 2021- Yes [id number] 100mg Take 1 [facility] 100 mg 1-28 capsule by ity of capsule 00:00: mouth in [address] morning [place] and 1 capsule at noon and 1 capsule in the evening. gabapentin 2021- Yes [id number] 100mg Take 1 [facility] 100 mg 1-28 capsule by ity of capsule 00:00: mouth in [address] and 1 capsule at noon and 1 capsule in the evening. gabapentin 2021- Yes [id number] 100mg Take 1 [facility] 100 mg 1-28 capsule by ity of capsule 00:00: mouth in [address] and 1 capsule at noon and 1 capsule in the evening. gabapentin 2021- Yes [id number] 100mg Take 1 [facility] 100 mg 1-28 capsule by ity of capsule 00:00: mouth in [address] and 1 capsule at noon and 1 capsule in the evening. gabapentin 2021- Yes [id number] 100mg Take 1 [facility] 100 mg 1-28 capsule by ity of capsule 00:00: mouth in [address] and 1 capsule at noon and 1 capsule in the evening. gabapentin 2021- Yes [id number] 100mg Take 1 [facility] 100 mg 1-28 capsule by ity of capsule 00:00: mouth in [address] and 1 capsule at noon and 1 capsule in the evening. gabapentin 202-1 Yes [id number] 100mg Take 1 [facility] 100 mg 1-28 capsule by ity of capsule 00:00: mouth in [address] and 1 capsule at noon and 1 capsule in the evening. gabapentin 2021-1 Yes [id number] 100mg Take 1 [facility] 100 mg 1-28 capsule by ity of capsule 00:00: mouth in [address] and 1 capsule at noon and 1 capsule in the evening. gabapentin 2021-04 Yes [id number] 100mg Take 1 [facility] 100 mg 1-28 capsule by ity of capsule 00:00: mouth in [address] Medical morning [place] and 1 capsule at noon and 1 capsule in the evening. gabapentin 2021- Yes [id number] 100mg Take 1 [facility] 100 mg 1-28 capsule by ity of capsule 00:00: mouth in [address] Medical morning [place] and 1 capsule at noon and 1 capsule in the evening. gabapentin 2021-04 Yes [id number] 100mg Take 1 [facility] 100 mg 1-28 capsule by ity of capsule 00:00: mouth in [address] Medical morning [place] and 1 capsule at noon and 1 capsule in the evening. gabapentin 2021-04 Yes [id number] 100mg Take 1 [facility] 100 mg 1-28 capsule by ity of capsule 00:00: mouth in [address] Medical morning [place] and 1 capsule at noon and 1 capsule in the evening. gabapentin 2021-04 Yes [id number] 100mg Take 1 [facility] 100 mg 1-28 capsule by ity of capsule 00:00: mouth in [address] morning [place] and 1 capsule at noon and 1 capsule in the evening. gabapentin 2021-04 Yes [id number] 100mg Take 1 [facility] 100 mg 1-28 capsule by ity of capsule 00:00: mouth in [address] morning [place] and 1 capsule at noon and 1 capsule in the evening. gabapentin 2021-04 Yes [id number] 100mg Take 1 [facility] 100 mg 1-28 capsule by ity of capsule 00:00: mouth in [address] morning [place] and 1 capsule at noon and 1 capsule in the evening. gabapentin 2021-04 Yes [id number] 100mg Take 1 [facility] 100 mg 1-28 capsule by ity of capsule 00:00: mouth in [address] morning [place] and 1 capsule at noon and 1 capsule in the evening. benzonatate 2021-04- No [id number] 200mg Take 1 [facility] 200 mg 1-03 11-14 capsule by ity of capsule 00:00: 05:59 mouth 3 [place] 00 :00 (three) Medical times [place] daily as needed for Cough for up to 10 days. methylPREDN 2021- Yes [id number] Take by Univers ISolone 0-27 mouth ity of (MEDROL, 00:00: SEE-INSTRU [place],) 4 mg 00 CTIONS. Medica l tablets follow Branch package directions methylPREDN 2021-1 Yes [id number] Take by [facility] ISolone 0-27 mouth ity of (MEDROL, 00:00: SEE-INSTRU [place],) 4 mg 00 CTIONS. Medica l tablets follow Branch package directions methylPREDN 2021-1 Yes [id number] Take by [facility] ISolone 0-27 mouth ity of (MEDROL, 00:00: SEE-INSTRU [place],) 4 mg 00 CTIONS. Medica l tablets follow Branch package directions methylPREDN 2021-1 Yes [id number] Take by [facility] ISolone 0-27 mouth ity of (MEDROL, 00:00: SEE-INSTRU [place],) 4 mg 00 CTIONS. Medica l tablets follow Branch package directions methylPREDN 2021-1 Yes [id number] Take by [facility] ISolone 0-27 mouth ity of (MEDROL, 00:00: SEE-INSTRU [place],) 4 mg 00 CTIONS. Medica l tablets follow Branch package directions methylPREDN 2021- Yes [id number] Take by [facility] ISolone 0-27 mouth ity of (MEDROL, 00:00: SEE-INSTRU [place],) 4 mg 00 CTIONS. Medica l tablets follow Branch package directions methylPREDN 2021-1 Yes [id number] Take by [facility] ISolone 0-27 mouth ity of (MEDROL, 00:00: SEE-INSTRU [place],) 4 mg 00 CTIONS. Medica l tablets follow Branch package directions methylPREDN 2021-1 Yes [id number] Take by [facility] ISolone 0-27 mouth ity of (MEDROL, 00:00: SEE-INSTRU [place],) 4 mg 00 CTIONS. Medica l tablets follow Branch package directions methylPREDN 2021-1 Yes [id number] Take by [facility] ISolone 0-27 mouth ity of (MEDROL, 00:00: SEE-INSTRU [place],) 4 mg 00 CTIONS. Medica l tablets follow Branch package directions methylPREDN 2021-1 Yes [id number] Take by [facility] ISolone 0-27 mouth ity of (MEDROL, 00:00: SEE-INSTRU [place],) 4 mg 00 CTIONS. Medica l tablets follow Branch package directions methylPREDN 2021- Yes [id number] Take by [facility] ISolone 0-27 mouth ity of (MEDROL, 00:00: SEE-INSTRU [place],) 4 mg 00 CTIONS. Medica l tablets follow Branch package directions methylPREDN 2021- Yes [id number] Take by [facility] ISolone 0-27 mouth ity of (MEDROL, 00:00: SEE-INSTRU [place],) 4 mg 00 CTIONS. Medica l tablets follow Branch package directions methylPREDN 2021-04 Yes [id number] Take by [facility] ISolone 0-27 mouth ity of (MEDROL, 00:00: SEE-INSTRU [place],) 4 mg 00 CTIONS. Medica l tablets follow Branch package directions methylPREDN 2021-04 Yes [id number] Take by [facility] ISolone 0-27 mouth ity of (MEDROL, 00:00: SEE-INSTRU [place],) 4 mg 00 CTIONS. Medica l tablets follow Branch package directions methylPREDN 2021- Yes [id number] Take by [facility] ISolone 0-27 mouth ity of (MEDROL, 00:00: SEE-INSTRU [place],) 4 mg 00 CTIONS. Medica l tablets follow Branch package directions methylPREDN 2021- Yes [id number] Take by [facility] ISolone 0-27 mouth ity of (MEDROL, 00:00: SEE-INSTRU [place],) 4 mg 00 CTIONS. Medica l tablets follow Branch package directions methylPREDN 2021- Yes [id number] Take by [facility] ISolone 0-27 mouth ity of (MEDROL, 00:00: SEE-INSTRU [place],) 4 mg 00 CTIONS. Medica l tablets follow Branch package directions methylPREDN 2021- Yes [id number] Take by [facility] ISolone 0-27 mouth ity of (MEDROL, 00:00: SEE-INSTRU [place],) 4 mg 00 CTIONS. Medica l tablets follow Branch package directions methylPREDN 2021-1 Yes [id number] Take by [facility] ISolone 0-27 mouth ity of (MEDROL, 00:00: SEE-INSTRU [place],) 4 mg 00 CTIONS. Medica l tablets follow Branch package directions methylPREDN 2021- Yes [id number] Take by [facility] ISolone 0-27 mouth ity of (MEDROL, 00:00: SEE-INSTRU [place],) 4 mg 00 CTIONS. Medica l tablets follow Branch package directions methylPREDN 2021- Yes [id number] Take by [facility] ISolone 0-27 mouth ity of (MEDROL, 00:00: SEE-INSTRU [place],) 4 mg 00 CTIONS. Medica l tablets follow Branch package directions methylPREDN 2021- Yes [id number] Take by [facility] ISolone 0-27 mouth ity of (MEDROL, 00:00: SEE-INSTRU [place],) 4 mg 00 CTIONS. Medica l tablets follow Branch package directions methylPREDN 2021- Yes [id number] Take by [facility] ISolone 0-27 mouth ity of (MEDROL, 00:00: SEE-INSTRU [place],) 4 mg 00 CTIONS. Medica l tablets follow Branch package directions methylPREDN 2021- Yes [id number] Take by [facility] ISolone 0-27 mouth ity of (MEDROL, 00:00: SEE-INSTRU [place],) 4 mg 00 CTIONS. Medica l tablets follow Branch package directions methylPREDN 2021- Yes [id number] Take by [facility] ISolone 0-27 mouth ity of (MEDROL, 00:00: SEE-INSTRU [place],) 4 mg 00 CTIONS. Medica l tablets follow Branch package directions methylPREDN 2021- Yes [id number] Take by [facility] ISolone 0-27 mouth ity of (MEDROL, 00:00: SEE-INSTRU [place],) 4 mg 00 CTIONS. Medica l tablets follow Branch package directions methylPREDN 2021-1 Yes [id number] Take by [facility] ISolone 0-27 mouth ity of (MEDROL, 00:00: SEE-INSTRU [place],) 4 mg 00 CTIONS. Medica l tablets follow Branch package directions methylPREDN 2021-1 Yes [id number] Take by [facility] ISolone 0-27 mouth ity of (MEDROL, 00:00: SEE-INSTRU [place],) 4 mg 00 CTIONS. Medica l tablets follow Branch package directions methylPREDN 2021-1 Yes [id number] Take by [facility] ISolone 0-27 mouth ity of (MEDROL, 00:00: SEE-INSTRU [place],) 4 mg 00 CTIONS. Medica l tablets follow Branch package directions methylPREDN 2021- Yes [id number] Take by [facility] ISolone 0-27 mouth ity of (MEDROL, 00:00: SEE-INSTRU [place],) 4 mg 00 CTIONS. Medica l tablets follow Branch package directions methylPREDN 2021-04 Yes [id number] Take by [facility] ISolone 0-27 mouth ity of (MEDROL, 00:00: SEE-INSTRU [place],) 4 mg 00 CTIONS. Medica l tablets follow Branch package directions methylPREDN 2021- Yes [id number] Take by [facility] ISolone 0-27 mouth ity of (MEDROL, 00:00: SEE-INSTRU [place],) 4 mg 00 CTIONS. Medica l tablets follow Branch package directions methylPREDN 2021-04 Yes [id number] Take by [facility] ISolone 0-27 mouth ity of (MEDROL, 00:00: SEE-INSTRU [place],) 4 mg 00 CTIONS. Medica l tablets follow Branch package directions methylPREDN 2021-04 Yes [id number] Take by [facility] ISolone 0-27 mouth ity of (MEDROL, 00:00: SEE-INSTRU [place],) 4 mg 00 CTIONS. Medica l tablets follow Branch package directions methylPREDN 2021-04 Yes [id number] Take by [facility] ISolone 0-27 mouth ity of (MEDROL, 00:00: SEE-INSTRU [place],) 4 mg 00 CTIONS. Medica l tablets follow Branch package directions methylPREDN 2021-04 Yes [id number] Take by [facility] ISolone 0-27 mouth ity of (MEDROL, 00:00: SEE-INSTRU [place],) 4 mg 00 CTIONS. Medica l tablets follow Branch package directions methylPREDN 2021- Yes [id number] Take by [facility] ISolone 0-27 mouth ity of (MEDROL, 00:00: SEE-INSTRU [place],) 4 mg 00 CTIONS. Medica l tablets follow Branch package directions methylPREDN 2021-04 2023- No [id number] Take by [facility] ISolone 0-27 02-18 mouth ity of (MEDROL, 00:00: 00:00 SEE-INSTRU [place],) 4 mg 00 :00 CTIONS. Medica l tablets follow Branch package directions azithromyci 2021-04 Yes [id number] Z-Steven = Univers n 0-25 500 mg day ity of (ZITHROMAX 00:00: [place] Z-STEV[place] 250 00 250 mg Medical mg tablet days 2 to Branc h 5. Z-Steven = 500mg day 1, then 250mg days 2 to 5. fluticasone 2021-04 Yes [id number] 1{spray Use 1 [facility] propionate 0-25 } [place] in ity o f 50 00:00: each [place] mcg/actuati 00 nostril in Me dical on nasal the Branch spray morning. azelastine 2021-04 Yes [id number] 1{spray Use 1 [facility] 137 mcg 0-25 } [place] in ity of (0.1 %) 00:00: each [place] nasal spray 00 nostril in Me dical the Branch morning and 1 [place] in the evening. Use in each nostril as directed guaiFENesin 2021-04 Yes [id number] 400mg Take 1 [facility] 400 mg 0-25 tablet by ity of tablet 00:00: mouth [place] 00 every 4 Medical (four) Branch hours as needed for Cough. azithromyci 2021-04 Yes [id number] Z-[place] = Univers n 0-25 500 mg day ity of (ZITHROMAX 00:00: [place] Z-STEVEN[place] 250 00 250 mg Medical mg tablet days 2 to Branc h 5. Z-Steven = 500mg day 1, then 250mg days 2 to 5. fluticasone 2021-04 Yes [id number] 1{spray Use 1 [facility] propionate 0-25 } [place] in ity o f 50 00:00: each [place] mcg/actuati 00 nostril in Me dical on nasal the Branch spray morning. azelastine 2021-04 Yes [id number] 1{spray Use 1 [facility] 137 mcg 0-25 } [place] in ity of (0.1 %) 00:00: each [place] nasal spray 00 nostril in Me dical the Branch morning and 1 [place] in the evening. Use in each nostril as directed guaiFENesin 2021-04 Yes [id number] 400mg Take 1 [facility] 400 mg 0-25 tablet by ity of tablet 00:00: mouth [place] 00 every 4 Medical (four) Branch hours as needed for Cough. azithromyci 2021-04 Yes [id number] Z-[place] = [facility] n 0-25 500 mg day ity of (ZITHROMAX 00:00: [place] Z-STEVEN[place] 250 00 250 mg Medical mg tablet days 2 to Branc h 5. Z-Steven = 500mg day 1, then 250mg days 2 to 5. fluticasone 2021-04 Yes [id number] 1{spray Use 1 [facility] propionate 0-25 } [place] in ity o f 50 00:00: each [place] mcg/actuati 00 nostril in Me dical on nasal the Branch spray morning. azelastine 2021-04 Yes [id number] 1{spray Use 1 [facility] 137 mcg 0-25 } [place] in ity of (0.1 %) 00:00: each [place] nasal spray 00 nostril in Me dical the Branch morning and 1 [place] in the evening. Use in each nostril as directed guaiFENesin 2021-04 Yes [id number] 400mg Take 1 [facility] 400 mg 0-25 tablet by ity of tablet 00:00: mouth [place] 00 every 4 Medical (four) Branch hours as needed for Cough. azithromyci 2021-04 Yes [id number] Z-[place] = Univers n 0-25 500 mg day ity of (ZITHROMAX 00:00: [place] Z-STEVEN) 250 00 250 mg Medical mg tablet days 2 to Branc h 5. Z-Steven = 500mg day 1, then 250mg days 2 to 5. fluticasone 2021-04 Yes [id number] 1{spray Use 1 [facility] propionate 0-25 } [place] in ity o f 50 00:00: each [place] mcg/actuati 00 nostril in Me dical on nasal the Branch spray morning. azelastine 2021-04 Yes [id number] 1{spray Use 1 [facility] 137 mcg 0-25 } [place] in ity of (0.1 %) 00:00: each [place] nasal spray 00 nostril in Me dical the Branch morning and 1 [place] in the evening. Use in each nostril as directed guaiFENesin 2021-04 Yes [id number] 400mg Take 1 [facility] 400 mg 0-25 tablet by ity of tablet 00:00: mouth [place] 00 every 4 Medical (four) Branch hours as needed for Cough. azithromyci 2021-04 Yes [id number] Z-[place] = Univers n 0-25 500 mg day ity of (ZITHROMAX 00:00: [place] Z-STEVEN) 250 00 250 mg Medical mg tablet days 2 to Branc h 5. Z-Steven = 500mg day 1, then 250mg days 2 to 5. fluticasone 2021-04 Yes [id number] 1{spray Use 1 [facility] propionate 0-25 } [place] in ity o f 50 00:00: each [place] mcg/actuati 00 nostril in Me dical on nasal the Branch spray morning. azelastine 2021-04 Yes [id number] 1{spray Use 1 [facility] 137 mcg 0-25 } [place] in ity of (0.1 %) 00:00: each [place] nasal spray 00 nostril in Me dical the Branch morning and 1 [place] in the evening. Use in each nostril as directed guaiFENesin 2021-04 Yes [id number] 400mg Take 1 [facility] 400 mg 0-25 tablet by ity of tablet 00:00: mouth [place] 00 every 4 Medical (four) Branch hours as needed for Cough. azithromyci 2021-04 Yes [id number] Z-Steven = Univers n 0-25 500 mg day ity of (ZITHROMAX 00:00: 1[place] Z-STEVEN) 250 00 250 mg Medical mg tablet days 2 to Branc h 5. Z-Steven = 500mg day 1, then 250mg days 2 to 5. fluticasone 2021-04 Yes [id number] 1{spray Use 1 [facility] propionate 0-25 } [place] [facility] o f 50 00:00: each [place] mcg/actuati 00 nostril in Me dical on nasal the Branch spray morning. azelastine 2021-04 Yes [id number] 1{spray Use 1 [facility] 137 mcg 0-25 } [place] [facility]y of (0.1 %) 00:00: each [place] nasal spray 00 nostril in Me dical the Branch morning and 1 [place] in the evening. Use in each nostril as directed guaiFENesin 2021-04 Yes [id number] 400mg Take 1 [facility] 400 mg 0-25 tablet by ity of tablet 00:00: mouth [place] 00 every 4 Medical (four) Branch hours as needed for Cough. azithromyci 2021-04 Yes [id number] [facility] = [facility] n 0-25 500 mg day ity of (ZITHROMAX 00:00: [place] [facility] 250 00 250 mg [facility] mg tablet days 2 to Br[facility] 5. Z-Steven = 500mg day 1, then 250mg days 2 to 5. fluticasone 2021-04 Yes [id number] 1{spray Use 1 [facility] propionate 0-25 } [place] [facility] o f 50 00:00: each [place] mcg/actuati 00 nostril in Me dical on nasal the Branch spray morning. azelastine 2021-04 Yes [id number] 1{spray Use 1 [facility] 137 mcg 0-25 } [place] [facility]y of (0.1 %) 00:00: each [place] nasal spray 00 nostril in Me dical the [facility] morning and 1 [place] in the evening. Use in each nostril as directed guaiFENesin 2021-04 Yes [id number] 400mg Take 1 [facility] 400 mg 0-25 tablet by ity of tablet 00:00: mouth [place] 00 every 4 Medical (four) Branch hours as needed for Cough. azithromyci 2021-04 Yes [id number] [facility] = [facility] n 0-25 500 mg day ity of (ZITHROMAX 00:00: [place] [facility] 250 00 250 mg Medical mg tablet days 2 to [facility] 5. [facility] = 500mg day 1, then 250mg days 2 to 5. fluticasone 2021-04 Yes [id number] 1{spray Use 1 [facility] propionate 0-25 } [place] in [facility]y o f 50 00:00: each [place] mcg/actuati 00 nostril in Me dical on nasal the Branch spray morning. azelastine 2021-04 Yes [id number] 1{spray Use 1 [facility] 137 mcg 0-25 } [place] [facility]y of (0.1 %) 00:00: each [place] nasal spray 00 nostril in Me dical the [facility] morning and 1 [place] in the evening. Use in each nostril as directed guaiFENesin 2021-04 Yes [id number] 400mg Take 1 [facility] 400 mg 0-25 tablet by ity of tablet 00:00: mouth [place] 00 every 4 Medical (four) Branch hours as needed for Cough. azithromyci 2021-04 Yes [id number] [facility] = [facility] n 0-25 500 mg day ity of (ZITHROMAX 00:00: [place] [facility] 250 00 250 mg Medical mg tablet days 2 to [facility] 5. [facility]-Steven = 500mg day 1, then 250mg days 2 to 5. fluticasone 2021-04 Yes [id number] 1{spray Use 1 [facility] propionate 0-25 } [place] [facility] o f 50 00:00: each [place] mcg/actuati 00 nostril in Me dical on nasal the Branch spray morning. azelastine 2021-04 Yes [id number] 1{spray Use 1 [facility] 137 mcg 0-25 } [place] [facility]y of (0.1 %) 00:00: each [place] nasal spray 00 nostril in Me dical the [facility] morning and 1 [place] in the evening. Use in each nostril as directed guaiFENesin 2021-04 Yes [id number] 400mg Take 1 [facility] 400 mg 0-25 tablet by ity of tablet 00:00: mouth [place] 00 every 4 Medical (four) Branch hours as needed for Cough. azithromyci 2021-04 Yes [id number] [facility] = [facility] n 0-25 500 mg day ity of (ZITHROMAX 00:00: [place] [facility] 250 00 250 mg Medical mg tablet days 2 to [facility] 5. [facility] = 500mg day 1, then 250mg days 2 to 5. fluticasone 2021-04 Yes [id number] 1{spray Use 1 [facility] propionate 0-25 } [place] in [facility] o f 50 00:00: each [place] mcg/actuati 00 nostril in Me dical on nasal the Branch spray morning. azelastine 2021-04 Yes [id number] 1{spray Use 1 [facility] 137 mcg 0-25 } [place] [facility]y of (0.1 %) 00:00: each [place] nasal spray 00 nostril in Me dical the [facility] morning and 1 [place] in the evening. Use in each nostril as directed guaiFENesin 2021-04 Yes [id number] 400mg Take 1 [facility] 400 mg 0-25 tablet by ity of tablet 00:00: mouth [place] 00 every 4 Medical (four) Branch hours as needed for Cough. azithromyci 2021-04 Yes [id number] [facility] = [facility] n 0-25 500 mg day ity of (ZITHROMAX 00:00: [place] [facility] 250 00 250 mg Medical mg tablet days 2 to [facility] 5. [facility] = 500mg day 1, then 250mg days 2 to 5. fluticasone 2021-04 Yes [id number] 1{spray Use 1 [facility] propionate 0-25 } [place] in [facility] o f 50 00:00: each [place] mcg/actuati 00 nostril in Me dical on nasal the Branch spray morning. azelastine 2021-04 Yes [id number] 1{spray Use 1 [facility] 137 mcg 0-25 } [place] [facility] of (0.1 %) 00:00: each [place] nasal spray 00 nostril in Me dical the [facility] morning and 1 [place] in the evening. Use in each nostril as directed guaiFENesin 2021-04 Yes [id number] 400mg Take 1 [facility] 400 mg 0-25 tablet by ity of tablet 00:00: mouth [place] 00 every 4 Medical (four) Branch hours as needed for Cough. azithromyci 2021-04 Yes [id number] [facility] = [facility] n 0-25 500 mg day ity of (ZITHROMAX 00:00: [place], [place] [facility] 250 00 250 mg Medical mg tablet days 2 to Br[facility] 5. [facility] = 500mg day 1, then 250mg days 2 to 5. fluticasone 2021-04 Yes [id number] 1{spray Use 1 [facility] propionate 0-25 } [place] in [facility] o f 50 00:00: each [place] mcg/actuati 00 nostril in Me dical on nasal the Branch spray morning. azelastine 2021-04 Yes [id number] 1{spray Use 1 [facility] 137 mcg 0-25 } [place] in [facility]y of (0.1 %) 00:00: each [place] nasal spray 00 nostril in Me dical the [facility] morning and 1 [place] in the evening. Use in each nostril as directed guaiFENesin 2021-04 Yes [id number] 400mg Take 1 [facility] 400 mg 0-25 tablet by ity of tablet 00:00: mouth [place] 00 every 4 Medical (four) Branch hours as needed for Cough. azithromyci 2021-04 Yes [id number] [facility] = [facility] n 0-25 500 mg day ity of (ZITHROMAX 00:00: [place] [facility] 250 00 250 mg Medical mg tablet days 2 to Br[facility] 5. Z-Steven = 500mg day 1, then 250mg days 2 to 5. fluticasone 2021-04 Yes [id number] 1{spray Use 1 [facility] propionate 0-25 } [place] in [facility] o f 50 00:00: each [place] mcg/actuati 00 nostril in Me dical on nasal the Branch spray morning. azelastine 2021-04 Yes [id number] 1{spray Use 1 [facility] 137 mcg 0-25 } [place] [facility]y of (0.1 %) 00:00: each [place] nasal spray 00 nostril in Me dical the [facility] morning and 1 [place] in the evening. Use in each nostril as directed guaiFENesin 2021-04 Yes [id number] 400mg Take 1 [facility] 400 mg 0-25 tablet by ity of tablet 00:00: mouth [place] 00 every 4 Medical (four) Branch hours as needed for Cough. azithromyci 2021-04 Yes [id number] [facility] = [facility] n 0-25 500 mg day ity of (ZITHROMAX 00:00: [place], [place] [facility] 250 00 250 mg Medical mg tablet days 2 to Br[facility] 5. [facility] = 500mg day 1, then 250mg days 2 to 5. fluticasone 2021-04 Yes [id number] 1{spray Use 1 [facility] propionate 0-25 } [place] in [facility] o f 50 00:00: each [place] mcg/actuati 00 nostril in Me dical on nasal the Branch spray morning. azelastine 2021-04 Yes [id number] 1{spray Use 1 [facility] 137 mcg 0-25 } [place] [facility]y of (0.1 %) 00:00: each [place] nasal spray 00 nostril in Me dical the [facility] morning and 1 [place] in the evening. Use in each nostril as directed guaiFENesin 2021-04 Yes [id number] 400mg Take 1 [facility] 400 mg 0-25 tablet by ity of tablet 00:00: mouth [place] 00 every 4 Medical (four) Branch hours as needed for Cough. azithromyci 2021-04 Yes [id number] [facility] = [facility] n 0-25 500 mg day ity of (ZITHROMAX 00:00: [place] [facility] 250 00 250 mg Medical mg tablet days 2 to Branc [facility] 5. [facility] = 500mg day 1, then 250mg days 2 to 5. fluticasone 2021-04 Yes [id number] 1{spray Use 1 [facility] propionate 0-25 } [place] in [facility] o f 50 00:00: each [place] mcg/actuati 00 nostril in Me dical on nasal the Branch spray morning. azelastine 2021-04 Yes [id number] 1{spray Use 1 [facility] 137 mcg 0-25 } [place] in [facility]y of (0.1 %) 00:00: each [place] nasal spray 00 nostril in Me dical the [facility] morning and 1 [place] in the evening. Use in each nostril as directed guaiFENesin 2021-04 Yes [id number] 400mg Take 1 [facility] 400 mg 0-25 tablet by ity of tablet 00:00: mouth [place] 00 every 4 Medical (four) Branch hours as needed for Cough. azithromyci 2021-04 Yes [id number] [facility] = [facility] n 0-25 500 mg day ity of (ZITHROMAX 00:00: [place] [facility] 250 00 250 mg Medical mg tablet days 2 to Br[facility] 5. [facility] = 500mg day 1, then 250mg days 2 to 5. fluticasone 2021-04 Yes [id number] 1{spray Use 1 [facility] propionate 0-25 } [place] in [facility] o f 50 00:00: each [place] mcg/actuati 00 nostril in Me dical on nasal the Branch spray morning. azelastine 2021-04 Yes [id number] 1{spray Use 1 [facility] 137 mcg 0-25 } [place] in [facility]y of (0.1 %) 00:00: each [place] nasal spray 00 nostril in Me dical the [facility] morning and 1 [place] in the evening. Use in each nostril as directed guaiFENesin 2021-04 Yes [id number] 400mg Take 1 [facility] 400 mg 0-25 tablet by ity of tablet 00:00: mouth [place] 00 every 4 Medical (four) Branch hours as needed for Cough. azithromyci 2021-04 Yes [id number] [facility] = [facility] n 0-25 500 mg day ity of (ZITHROMAX 00:00: [place], [place] [facility] 250 00 250 mg Medical mg tablet days 2 to Br[facility] 5. [facility] = 500mg day 1, then 250mg days 2 to 5. fluticasone 2021-04 Yes [id number] 1{spray Use 1 [facility] propionate 0-25 } [place] in [facility] o f 50 00:00: each [place] mcg/actuati 00 nostril in Me dical on nasal the Branch spray morning. azelastine 2021-04 Yes [id number] 1{spray Use 1 [facility] 137 mcg 0-25 } [place] in [facility]y of (0.1 %) 00:00: each [place] nasal spray 00 nostril in Me dical the [facility] morning and 1 [place] in the evening. Use in each nostril as directed guaiFENesin 2021-04 Yes [id number] 400mg Take 1 [facility] 400 mg 0-25 tablet by ity of tablet 00:00: mouth [place] 00 every 4 Medical (four) Branch hours as needed for Cough. azithromyci 2021-04 Yes [id number] [facility] = [facility] n 0-25 500 mg day ity of (ZITHROMAX 00:00: [place], [place] [facility] 250 00 250 mg Medical mg tablet days 2 to Br[facility] 5. [facility] = 500mg day 1, then 250mg days 2 to 5. fluticasone 2021-04 Yes [id number] 1{spray Use 1 [facility] propionate 0-25 } [place] in ity o f 50 00:00: each [place] mcg/actuati 00 nostril in Me dical on nasal the Branch spray morning. azelastine 2021-04 Yes [id number] 1{spray Use 1 [facility] 137 mcg 0-25 } [place] in [facility]y of (0.1 %) 00:00: each [place] nasal spray 00 nostril in Me dical the [facility] morning and 1 [place] in the evening. Use in each nostril as directed guaiFENesin 2021-04 Yes [id number] 400mg Take 1 [facility] 400 mg 0-25 tablet by ity of tablet 00:00: mouth [place] 00 every 4 Medical (four) Branch hours as needed for Cough. azithromyci 2021-04 Yes [id number] [facility] = [facility] n 0-25 500 mg day ity of (ZITHROMAX 00:00: [place], [place] [facility] 250 00 250 mg Medical mg tablet days 2 to Br[facility] 5. [facility] = 500mg day 1, then 250mg days 2 to 5. fluticasone 2021-04 Yes [id number] 1{spray Use 1 [facility] propionate 0-25 } [place] in ity o f 50 00:00: each [place] mcg/actuati 00 nostril in Me dical on nasal the Branch spray morning. azelastine 2021-04 Yes [id number] 1{spray Use 1 [facility] 137 mcg 0-25 } [place] in [facility]y of (0.1 %) 00:00: each [place] nasal spray 00 nostril in Me dical the [facility] morning and 1 [place] in the evening. Use in each nostril as directed guaiFENesin 2021-04 Yes [id number] 400mg Take 1 [facility] 400 mg 0-25 tablet by ity of tablet 00:00: mouth [place] 00 every 4 Medical (four) Branch hours as needed for Cough. azithromyci 2021-04 Yes [id number] [facility] = [facility] n 0-25 500 mg day ity of (ZITHROMAX 00:00: [place], [place] [facility]) 250 00 250 mg Medical mg tablet days 2 to Br[facility] 5. [facility] = 500mg day 1, then 250mg days 2 to 5. fluticasone 2021-04 Yes [id number] 1{spray Use 1 [facility] propionate 0-25 } [place] in it[facility] o f 50 00:00: each [place] mcg/actuati 00 nostril in Me dical on nasal the Branch spray morning. azelastine 2021-04 Yes [id number] 1{spray Use 1 [facility] 137 mcg 0-25 } [place] in [facility]y of (0.1 %) 00:00: each [place] nasal spray 00 nostril in Me dical the [facility] morning and 1 [place] in the evening. Use in each nostril as directed guaiFENesin 2021-04 Yes [id number] 400mg Take 1 [facility] 400 mg 0-25 tablet by ity of tablet 00:00: mouth [place] 00 every 4 Medical (four) Branch hours as needed for Cough. azithromyci 2021-04 Yes [id number] [facility] = [facility] n 0-25 500 mg day ity of (ZITHROMAX 00:00: [place], [place] [facility]EV[facility] 250 00 250 mg Medical mg tablet days 2 to Br[facility] 5. [facility] = 500mg day 1, then 250mg days 2 to 5. fluticasone 2021-04 Yes [id number] 1{spray Use 1 [facility] propionate 0-25 } [place] in ity o f 50 00:00: each [place] mcg/actuati 00 nostril in Me dical on nasal the Branch spray morning. azelastine 2021-04 Yes [id number] 1{spray Use 1 [facility] 137 mcg 0-25 } [place] in [facility]y of (0.1 %) 00:00: each [place] nasal spray 00 nostril in Me dical the [facility] morning and 1 [place] in the evening. Use in each nostril as directed guaiFENesin 2021-04 Yes [id number] 400mg Take 1 [facility] 400 mg 0-25 tablet by ity of tablet 00:00: mouth [place] 00 every 4 Medical (four) Branch hours as needed for Cough. azithromyci 2021-04 Yes [id number] [facility] = [facility] n 0-25 500 mg day ity of (ZITHROMAX 00:00: [place], [place] [facility]) 250 00 250 mg Medical mg tablet days 2 to Br[facility] 5. [facility] = 500mg day 1, then 250mg days 2 to 5. fluticasone 2021-04 Yes [id number] 1{spray Use 1 [facility] propionate 0-25 } [place] in ity o f 50 00:00: each [place] mcg/actuati 00 nostril in Me dical on nasal the Branch spray morning. azelastine 2021-04 Yes [id number] 1{spray Use 1 [facility] 137 mcg 0-25 } [place] in ity of (0.1 %) 00:00: each [place] nasal spray 00 nostril in Me dical the [facility] morning and 1 [place] in the evening. Use in each nostril as directed guaiFENesin 2021-04 Yes [id number] 400mg Take 1 [facility] 400 mg 0-25 tablet by ity of tablet 00:00: mouth [place] 00 every 4 Medical (four) Branch hours as needed for Cough. azithromyci 2021-04 Yes [id number] [facility] = [facility] n 0-25 500 mg day ity of (ZITHROMAX 00:00: 1, [place] [facility]) 250 00 250 mg Medical mg tablet days 2 to Br[facility] 5. [facility] = 500mg day 1, then 250mg days 2 to 5. fluticasone 2021-04 Yes [id number] 1{spray Use 1 [facility] propionate 0-25 } [place] in ity o f 50 00:00: each [place] mcg/actuati 00 nostril in Me dical on nasal the Branch spray morning. azelastine 2021-04 Yes [id number] 1{spray Use 1 [facility] 137 mcg 0-25 } [place] in [facility]y of (0.1 %) 00:00: each [place] nasal spray 00 nostril in Me dical the [facility] morning and 1 [place] in the evening. Use in each nostril as directed guaiFENesin 2021-04 Yes [id number] 400mg Take 1 [facility] 400 mg 0-25 tablet by ity of tablet 00:00: mouth [place] 00 every 4 Medical (four) Branch hours as needed for Cough. azithromyci 2021-04 Yes [id number] [facility] = [facility] n 0-25 500 mg day ity of (ZITHROMAX 00:00: 1, [place] [facility]) 250 00 250 mg Medical mg tablet days 2 to Br[facility] 5. [facility] = 500mg day 1, then 250mg days 2 to 5. fluticasone 2021-04 Yes [id number] 1{spray Use 1 [facility] propionate 0-25 } [place] in ity o f 50 00:00: each [place] mcg/actuati 00 nostril in Me dical on nasal the Branch spray morning. azelastine 2021-04 Yes [id number] 1{spray Use 1 [facility] 137 mcg 0-25 } [place] in ity of (0.1 %) 00:00: each [place] nasal spray 00 nostril in Me dical the Branch morning and 1 [place] in the evening. Use in each nostril as directed guaiFENesin 2021-04 Yes [id number] 400mg Take 1 [facility] 400 mg 0-25 tablet by ity of tablet 00:00: mouth [place] 00 every 4 Medical (four) Branch hours as needed for Cough. azithromyci 2021-04 Yes [id number] [facility] = [facility] n 0-25 500 mg day ity of (ZITHROMAX 00:00: 1, [place] [facility]) 250 00 250 mg Medical mg tablet days 2 to Br[facility] 5. [facility] = 500mg day 1, then 250mg days 2 to 5. fluticasone 2021-04 Yes [id number] 1{spray Use 1 [facility] propionate 0-25 } [place] in ity o f 50 00:00: each [place] mcg/actuati 00 nostril in Me dical on nasal the Branch spray morning. azelastine 2021-04 Yes [id number] 1{spray Use 1 [facility] 137 mcg 0-25 } [place] in ity of (0.1 %) 00:00: each [place] nasal spray 00 nostril in Me dical the Branch morning and 1 [place] in the evening. Use in each nostril as directed guaiFENesin 2021-04 Yes [id number] 400mg Take 1 [facility] 400 mg 0-25 tablet by ity of tablet 00:00: mouth [place] 00 every 4 Medical (four) Branch hours as needed for Cough. azithromyci 2021-04 Yes [id number] [facility] = [facility] n 0-25 500 mg day ity of (ZITHROMAX 00:00: 1, [place] [facility]) 250 00 250 mg Medical mg tablet days 2 to Br[facility] 5. [facility] = 500mg day 1, then 250mg days 2 to 5. fluticasone 2021-04 Yes [id number] 1{spray Use 1 [facility] propionate 0-25 } [place] in ity o f 50 00:00: each [place] mcg/actuati 00 nostril in Me dical on nasal the Branch spray morning. azelastine 2021-04 Yes [id number] 1{spray Use 1 [facility] 137 mcg 0-25 } [place] in [facility]y of (0.1 %) 00:00: each [place] nasal spray 00 nostril in Me dical the Branch morning and 1 [place] in the evening. Use in each nostril as directed guaiFENesin 2021-04 Yes [id number] 400mg Take 1 [facility] 400 mg 0-25 tablet by ity of tablet 00:00: mouth [place] 00 every 4 Medical (four) Branch hours as needed for Cough. azithromyci 2021-04 Yes [id number] [facility] = [facility] n 0-25 500 mg day ity of (ZITHROMAX 00:00: 1, [place] [facility]) 250 00 250 mg Medical mg tablet days 2 to Br[facility] 5. [facility] = 500mg day 1, then 250mg days 2 to 5. fluticasone 2021-04 Yes [id number] 1{spray Use 1 [facility] propionate 0-25 } [place] in ity o f 50 00:00: each [place] mcg/actuati 00 nostril in Me dical on nasal the Branch spray morning. azelastine 2021-04 Yes [id number] 1{spray Use 1 [facility] 137 mcg 0-25 } [place] in ity of (0.1 %) 00:00: each [place] nasal spray 00 nostril in Me dical the Branch morning and 1 [place] in the evening. Use in each nostril as directed guaiFENesin 2021-04 Yes [id number] 400mg Take 1 [facility] 400 mg 0-25 tablet by ity of tablet 00:00: mouth [place] 00 every 4 Medical (four) Branch hours as needed for Cough. azithromyci 2021-04 Yes [id number] [facility] = [facility] n 0-25 500 mg day ity of (ZITHROMAX 00:00: 1, [place] [facility]) 250 00 250 mg Medical mg tablet days 2 to Br[facility] 5. [facility] = 500mg day 1, then 250mg days 2 to 5. fluticasone 2021-04 Yes [id number] 1{spray Use 1 [facility] propionate 0-25 } [place] in ity o f 50 00:00: each [place] mcg/actuati 00 nostril in Me dical on nasal the Branch spray morning. azelastine 2021-04 Yes [id number] 1{spray Use 1 [facility] 137 mcg 0-25 } [place] in ity of (0.1 %) 00:00: each [place] nasal spray 00 nostril in Me dical the Branch morning and 1 [place] in the evening. Use in each nostril as directed guaiFENesin 2021-04 Yes [id number] 400mg Take 1 [facility] 400 mg 0-25 tablet by ity of tablet 00:00: mouth [place] 00 every 4 Medical (four) Branch hours as needed for Cough. azithromyci 2021-04 Yes [id number] [facility] = [facility] n 0-25 500 mg day ity of (ZITHROMAX 00:00: 1, [place] [facility]) 250 00 250 mg Medical mg tablet days 2 to Br[facility] 5. [facility] = 500mg day 1, then 250mg days 2 to 5. fluticasone 2021-04 Yes [id number] 1{spray Use 1 [facility] propionate 0-25 } [place] in ity o f 50 00:00: each [place] mcg/actuati 00 nostril in Me dical on nasal the Branch spray morning. azelastine 2021-04 Yes [id number] 1{spray Use 1 [facility] 137 mcg 0-25 } [place] in [facility]y of (0.1 %) 00:00: each [place] nasal spray 00 nostril in Me dical the Branch morning and 1 [place] in the evening. Use in each nostril as directed guaiFENesin 2021-04 Yes [id number] 400mg Take 1 [facility] 400 mg 0-25 tablet by ity of tablet 00:00: mouth [place] 00 every 4 Medical (four) Branch hours as needed for Cough. azithromyci 2021-04 Yes [id number] [facility] = [facility] n 0-25 500 mg day ity of (ZITHROMAX 00:00: 1, then [place] [facility]) 250 00 250 mg Medical mg tablet days 2 to Br[facility] 5. [facility] = 500mg day 1, then 250mg days 2 to 5. fluticasone 2021-04 Yes [id number] 1{spray Use 1 [facility] propionate 0-25 } [place] in ity o f 50 00:00: each [place] mcg/actuati 00 nostril in Me dical on nasal the Branch spray morning. azelastine 2021-04 Yes [id number] 1{spray Use 1 [facility] 137 mcg 0-25 } [place] in [facility]y of (0.1 %) 00:00: each [place] nasal spray 00 nostril in Me dical the Branch morning and 1 [place] in the evening. Use in each nostril as directed guaiFENesin 2021-04 Yes [id number] 400mg Take 1 [facility] 400 mg 0-25 tablet by ity of tablet 00:00: mouth [place] 00 every 4 Medical (four) Branch hours as needed for Cough. azithromyci 2021-04 Yes [id number] [facility] = [facility] n 0-25 500 mg day ity of (ZITHROMAX 00:00: 1, then [place] [facility]) 250 00 250 mg Medical mg tablet days 2 to Br[facility] 5. [facility] = 500mg day 1, then 250mg days 2 to 5. fluticasone 2021-04 Yes [id number] 1{spray Use 1 [facility] propionate 0-25 } [place] in ity o f 50 00:00: each [place] mcg/actuati 00 nostril in Me dical on nasal the Branch spray morning. azelastine 2021-04 Yes [id number] 1{spray Use 1 [facility] 137 mcg 0-25 } [place] in [facility]y of (0.1 %) 00:00: each [place] nasal spray 00 nostril in Me dical the [facility] morning and 1 [place] in the evening. Use in each nostril as directed guaiFENesin 2021-04 Yes [id number] 400mg Take 1 [facility] 400 mg 0-25 tablet by ity of tablet 00:00: mouth [place] 00 every 4 Medical (four) Branch hours as needed for Cough. azithromyci 2021-04 Yes [id number] [facility] = [facility] n 0-25 500 mg day ity of (ZITHROMAX 00:00: 1, [place] [facility]) 250 00 250 mg Medical mg tablet days 2 to Br[facility] 5. [facility] = 500mg day 1, then 250mg days 2 to 5. fluticasone 2021-04 Yes [id number] 1{spray Use 1 [facility] propionate 0-25 } [place] in ity o f 50 00:00: each [place] mcg/actuati 00 nostril in Me dical on nasal the Branch spray morning. azelastine 2021-04 Yes [id number] 1{spray Use 1 [facility] 137 mcg 0-25 } [place] in [facility]y of (0.1 %) 00:00: each [place] nasal spray 00 nostril in Me dical the [facility] morning and 1 [place] in the evening. Use in each nostril as directed guaiFENesin 2021-04 Yes [id number] 400mg Take 1 [facility] 400 mg 0-25 tablet by ity of tablet 00:00: mouth [place] 00 every 4 Medical (four) Branch hours as needed for Cough. azithromyci 2021-04 Yes [id number] [facility] = [facility] n 0-25 500 mg day ity of (ZITHROMAX 00:00: 1, then [place] [facility] 250 00 250 mg Medical mg tablet days 2 to Br[facility] 5. Z-Steven = 500mg day 1, then 250mg days 2 to 5. fluticasone 2021-04 Yes [id number] 1{spray Use 1 [facility] propionate 0-25 } [place] in ity o f 50 00:00: each [place] mcg/actuati 00 nostril in Me dical on nasal the Branch spray morning. azelastine 2021-04 Yes [id number] 1{spray Use 1 [facility] 137 mcg 0-25 } [place] in [facility]y of (0.1 %) 00:00: each [place] nasal spray 00 nostril in Me dical the [facility] morning and 1 [place] in the evening. Use in each nostril as directed guaiFENesin 2021-04 Yes [id number] 400mg Take 1 [facility] 400 mg 0-25 tablet by ity of tablet 00:00: mouth [place] 00 every 4 Medical (four) Branch hours as needed for Cough. azithromyci 2021-04 Yes [id number] [facility] = [facility] n 0-25 500 mg day ity of (ZITHROMAX 00:00: 1, [place] [facility]) 250 00 250 mg Medical mg tablet days 2 to Br[facility] 5. Z-Steven = 500mg day 1, then 250mg days 2 to 5. fluticasone 2021-04 Yes [id number] 1{spray Use 1 [facility] propionate 0-25 } [place] in ity o f 50 00:00: each [place] mcg/actuati 00 nostril in Me dical on nasal the Branch spray morning. azelastine 2021-04 Yes [id number] 1{spray Use 1 [facility] 137 mcg 0-25 } [place] in [facility]y of (0.1 %) 00:00: each [place] nasal spray 00 nostril in Me dical the [facility] morning and 1 [place] in the evening. Use in each nostril as directed guaiFENesin 2021-04 Yes [id number] 400mg Take 1 [facility] 400 mg 0-25 tablet by ity of tablet 00:00: mouth [place] 00 every 4 Medical (four) Branch hours as needed for Cough. azithromyci 2021-04 Yes [id number] [facility] = [facility] n 0-25 500 mg day ity of (ZITHROMAX 00:00: 1, [place] [facility]) 250 00 250 mg Medical mg tablet days 2 to Br[facility] 5. Z-Steven = 500mg day 1, then 250mg days 2 to 5. fluticasone 2021-04 Yes [id number] 1{spray Use 1 [facility] propionate 0-25 } [place] in ity o f 50 00:00: each [place] mcg/actuati 00 nostril in Me dical on nasal the Branch spray morning. azelastine 2021-04 Yes [id number] 1{spray Use 1 [facility] 137 mcg 0-25 } [place] in [facility]y of (0.1 %) 00:00: each [place] nasal spray 00 nostril in Me dical the [facility] morning and 1 [place] in the evening. Use in each nostril as directed guaiFENesin 2021-04 Yes [id number] 400mg Take 1 [facility] 400 mg 0-25 tablet by ity of tablet 00:00: mouth [place] 00 every 4 Medical (four) Branch hours as needed for Cough. azithromyci 2021-04 Yes [id number] Z-[facility] = [facility] n 0-25 500 mg day ity of (ZITHROMAX 00:00: [place] [facility]-STEVEN[place] 250 00 250 mg Medical mg tablet days 2 to Branc h 5. Z-Steven = 500mg day 1, then 250mg days 2 to 5. fluticasone 2021-04 Yes [id number] 1{spray Use 1 [facility] propionate 0-25 } [place] in ity o f 50 00:00: each [place] mcg/actuati 00 nostril in Me dical on nasal the Branch spray morning. azelastine 2021-04 Yes [id number] 1{spray Use 1 [facility] 137 mcg 0-25 } [place] in ity of (0.1 %) 00:00: each [place] nasal spray 00 nostril in Me dical the Branch morning and 1 [place] in the evening. Use in each nostril as directed guaiFENesin 2021-04 Yes [id number] 400mg Take 1 [facility] 400 mg 0-25 tablet by ity of tablet 00:00: mouth [place] 00 every 4 Medical (four) Branch hours as needed for Cough. azithromyci 2021-04 Yes [id number] Z-Steven = [facility] n 0-25 500 mg day ity of (ZITHROMAX 00:00: [place] [facility]-STEVEN[place] 250 00 250 mg Medical mg tablet days 2 to Branc h 5. Z-Steven = 500mg day 1, then 250mg days 2 to 5. fluticasone 2021-04 Yes [id number] 1{spray Use 1 [facility] propionate 0-25 } [place] in ity o f 50 00:00: each [place] mcg/actuati 00 nostril in Me dical on nasal the Branch spray morning. azelastine 2021-04 Yes [id number] 1{spray Use 1 [facility] 137 mcg 0-25 } [place] in ity of (0.1 %) 00:00: each [place] nasal spray 00 nostril in Me dical the Branch morning and 1 [place] in the evening. Use in each nostril as directed guaiFENesin 2021-04 Yes [id number] 400mg Take 1 [facility] 400 mg 0-25 tablet by ity of tablet 00:00: mouth [place] 00 every 4 Medical (four) Branch hours as needed for Cough. azithromyci 2021-04 Yes [id number] Z-Steven = [facility] n 0-25 500 mg day ity of (ZITHROMAX 00:00: [place], [place] Z-STEVEN[place] 250 00 250 mg Medical mg tablet days 2 to Branc h 5. Z-Steven = 500mg day 1, then 250mg days 2 to 5. fluticasone 2021-04 Yes [id number] 1{spray Use 1 [facility] propionate 0-25 } [place] in ity o f 50 00:00: each [place] mcg/actuati 00 nostril in Me dical on nasal the Branch spray morning. azelastine 2021-04 Yes [id number] 1{spray Use 1 [facility] 137 mcg 0-25 } [place] in ity of (0.1 %) 00:00: each [place] nasal spray 00 nostril in Me dical the Branch morning and 1 [place] in the evening. Use in each nostril as directed guaiFENesin 2021-04 Yes [id number] 400mg Take 1 [facility] 400 mg 0-25 tablet by ity of tablet 00:00: mouth [place] 00 every 4 Medical (four) Branch hours as needed for Cough. azithromyci 2021-04 Yes [id number] Z-[facility] = [facility] n 0-25 500 mg day ity of (ZITHROMAX 00:00: [place], [place] [facility]-STEVEN[place] 250 00 250 mg Medical mg tablet days 2 to Branc h 5. Z-Steven = 500mg day 1, then 250mg days 2 to 5. fluticasone 2021-04 Yes [id number] 1{spray Use 1 [facility] propionate 0-25 } [place] in ity o f 50 00:00: each [place] mcg/actuati 00 nostril in Sd dical on nasal the Branch spray morning. azelastine 2021-04 Yes [id number] 1{spray Use 1 [facility] 137 mcg 0-25 } [place] in ity of (0.1 %) 00:00: each [place] nasal spray 00 nostril in [facility] dical the Branch morning and 1 [place] in the evening. Use in each nostril as directed guaiFENesin 2021-04 Yes [id number] 400mg Take 1 [facility] 400 mg 0-25 tablet by ity of tablet 00:00: mouth [place] 00 every 4 Medical (four) Branch hours as needed for Cough. azithromyci 2021-04 Yes [id number] Z-Steven = [facility] n 0-25 500 mg day ity of (ZITHROMAX 00:00: 1, [place] Z-STEVEN[place] 250 00 250 mg Medical mg tablet days 2 to Branc h 5. Z-Steven = 500mg day 1, then 250mg days 2 to 5. fluticasone 2021-04 Yes [id number] 1{spray Use 1 [facility] propionate 0-25 } [place] in ity o f 50 00:00: each [place] mcg/actuati 00 nostril in Me dical on nasal the Branch spray morning. azelastine 2021-04 Yes [id number] 1{spray Use 1 [facility] 137 mcg 0-25 } [place] in ity of (0.1 %) 00:00: each [place] nasal spray 00 nostril in [facility] dical the Branch morning and 1 [place] in the evening. Use in each nostril as directed guaiFENesin 2021-04 Yes [id number] 400mg Take 1 [facility] 400 mg 0-25 tablet by ity of tablet 00:00: mouth [place] 00 every 4 Medical (four) Branch hours as needed for Cough. azithromyci 2021-04 Yes [id number] Z-Steven = [facility] n 0-25 500 mg day ity of (ZITHROMAX 00:00: 1, [place] Z-STEVEN[place] 250 00 250 mg Medical mg tablet days 2 to Branc h 5. Z-Steven = 500mg day 1, then 250mg days 2 to 5. fluticasone 2021-04 Yes [id number] 1{spray Use 1 [facility] propionate 0-25 } [place] in ity o f 50 00:00: each [place] mcg/actuati 00 nostril in Sd dical on nasal the Branch spray morning. azelastine 2021-04 Yes [id number] 1{spray Use 1 [facility] 137 mcg 0-25 } [place] in ity of (0.1 %) 00:00: each [place] [facility] 1 [place] in the evening. Use in each nostril as directed guaiFENesin 2021-04 Yes [id number] 400mg Take 1 [facility] 400 mg 0-25 tablet by ity of tablet 00:00: mouth [place] 00 every 4 Medical (four) Branch hours as needed for Cough. azelastine 2021-04 Yes [id number] 1{spray Use 1 [facility] 137 mcg 0-25 } [place] in ity of (0.1 %) 00:00: each [place] nasal spray 00 nostril in Sd dical the Branch morning and 1 [place] in the evening. Use in each nostril as directed azelastine 2021-04 Yes [id number] 1{spray Use 1 [facility] 137 mcg 0-25 } [place] in ity of (0.1 %) 00:00: each [place] nasal spray 00 nostril in Sd dical the Branch morning and 1 [place] in the evening. Use in each nostril as directed azelastine 2021-04 Yes [id number] 1{spray Use 1 [facility] 137 mcg 0-25 } [place] in ity of (0.1 %) 00:00: each [place] nasal spray 00 nostril in Me dical the Branch morning and 1 [place] in the evening. Use in each nostril as directed azelastine 2021- Yes [id number] 1{spray Use 1 [facility] 137 mcg 0-25 } [place] in ity of (0.1 %) 00:00: each [place] nasal spray 00 nostril in Me dical the Branch morning and 1 [place] in the evening. Use in each nostril as directed azelastine 2021- Yes [id number] 1{spray Use 1 [facility] 137 mcg 0-25 } [place] in ity of (0.1 %) 00:00: each [place] nasal spray 00 nostril in Me dical the Branch morning and 1 [place] in the evening. Use in each nostril as directed azelastine 2021- Yes [id number] 1{spray Use 1 [facility] 137 mcg 0-25 } [place] in ity of (0.1 %) 00:00: each [place] nasal spray 00 nostril in [facility] dical the Branch morning and 1 [place] in the evening. Use in each nostril as directed azelastine 2021- Yes [id number] 1{spray Use 1 [facility] 137 mcg 0-25 } [place] in ity of (0.1 %) 00:00: each [place] nasal spray 00 nostril in [facility] dical the Branch morning and 1 [place] in the evening. Use in each nostril as directed azelastine 2021-1 Yes [id number] 1{spray Use 1 [facility] 137 mcg 0-25 } [place] in ity of (0.1 %) 00:00: each [place] nasal spray 00 nostril in [facility]d dical the Branch morning and 1 [place] in the evening. Use in each nostril as directed azelastine 2021- Yes [id number] 1{spray Use 1 [facility] 137 mcg 0-25 } [place] in ity of (0.1 %) 00:00: each [place] nasal spray 00 nostril in Me dical the Branch morning and 1 [place] in the evening. Use in each nostril as directed azelastine 2021- Yes [id number] 1{spray Use 1 [facility] 137 mcg 0-25 } [place] in ity of (0.1 %) 00:00: each [place] nasal spray 00 nostril in Me dical the Branch morning and 1 [place] in the evening. Use in each nostril as directed azelastine 2021- Yes [id number] 1{spray Use 1 [facility] 137 mcg 0-25 } [place] in ity of (0.1 %) 00:00: each [place] nasal spray 00 nostril in Me dical the Branch morning and 1 [place] in the evening. Use in each nostril as directed azelastine 2021- Yes [id number] 1{spray Use 1 [facility] 137 mcg 0-25 } [place] in ity of (0.1 %) 00:00: each [place] nasal spray 00 nostril in Me dical the Branch morning and 1 [place] in the evening. Use in each nostril as directed azelastine 2021- Yes [id number] 1{spray Use 1 [facility] 137 mcg 0-25 } [place] in ity of (0.1 %) 00:00: each [place] nasal spray 00 nostril in [facility]d dical the Branch morning and 1 [place] in the evening. Use in each nostril as directed azelastine 2021- Yes [id number] 1{spray Use 1 [facility] 137 mcg 0-25 } [place] in ity of (0.1 %) 00:00: each [place] nasal spray 00 nostril in [facility] dical the Branch morning and 1 [place] in the evening. Use in each nostril as directed azelastine 2021- Yes [id number] 1{spray Use 1 [facility] 137 mcg 0-25 } [place] in ity of (0.1 %) 00:00: each [place] nasal spray 00 nostril in [facility] the Branch morning and 1 [place] in the evening. Use in each nostril as directed azelastine 2021- Yes [id number] 1{spray Use 1 [facility] 137 mcg 0-25 } [place] in ity of (0.1 %) 00:00: each [place] nasal spray 00 nostril in [facility] dical the Branch morning and 1 [place] in the evening. Use in each nostril as directed azelastine 2021- Yes [id number] 1{spray Use 1 [facility] 137 mcg 0-25 } [place] in ity of (0.1 %) 00:00: each [place] nasal spray 00 nostril in [facility] dical the Branch morning and 1 [place] in the evening. Use in each nostril as directed azelastine 2021- Yes [id number] 1{spray Use 1 [facility] 137 mcg 0-25 } [place] in ity of (0.1 %) 00:00: each [place] nasal spray 00 nostril in Me dical the Branch morning and 1 [place] in the evening. Use in each nostril as directed azelastine 2021-04 Yes [id number] 1{spray Use 1 [facility] 137 mcg 0-25 } [place] in ity of (0.1 %) 00:00: each [place] nasal spray 00 nostril in Me dical the Branch morning and 1 [place] in the evening. Use in each nostril as directed azelastine 2021- Yes [id number] 1{spray Use 1 [facility] 137 mcg 0-25 } [place] in ity of (0.1 %) 00:00: each [place] nasal spray 00 nostril in Me dical the Branch morning and 1 [place] in the evening. Use in each nostril as directed azelastine 2021-04 Yes [id number] 1{spray Use 1 [facility] 137 mcg 0-25 } [place] in ity of (0.1 %) 00:00: each [place] nasal spray 00 nostril in Me dical the Branch morning and 1 [place] in the evening. Use in each nostril as directed azelastine 2021- Yes [id number] 1{spray Use 1 [facility] 137 mcg 0-25 } [place] in ity of (0.1 %) 00:00: each [place] nasal spray 00 nostril in Me dical the Branch morning and 1 [place] in the evening. Use in each nostril as directed azelastine 2021- 2023- No [id number] 1{spray Use 1 [facility] 137 mcg 0-25 03-30 } [place] in ity of (0.1 %) 00:00: 00:00 each [place] nasal spray 00 :00 nostril in Me dical the Branch morning and 1 [place] in the evening. Use in each nostril as directed azelastine 2021-2022- No [id number] 1{spray Use 1 [facility] 137 mcg 0-25 03-30 } [place] in ity of (0.1 %) 00:00: 00:00 each [place] nasal spray 00 :00 nostril in [facility] d[facility] the Branch morning and 1 [place] in the evening. Use in each nostril as directed azithromyci 2021-04- No [id number] Z-Steven = [facility] n 0-25 02-18 500 mg day ity of (ZITHROMAX 00:00: 00:00 1, then [place] Z-STEVEN) 250 00 :00 250 mg Medical mg tablet days 2 to Branc h 5. Z-Steven = 500mg day 1, then 250mg days 2 to 5. fluticasone 2021-04- No [id number] 1{spray Use 1 [facility] propionate 0-25 02-18 } [place] in ity of 50 00:00: 00:00 each [place] mcg/actuati 00 :00 nostril in Me dical on nasal the Branch spray morning. guaiFENesin 2021-04- No [id number] 400mg Take 1 [facility] 400 mg 0-25 02-18 tablet by ity of tablet 00:00: 00:00 mouth [place] 00 :00 every 4 Medical (four) Branch hours as needed for Cough. fluticasone 2021-04 Yes [id number] 1{spray Use 1 [facility] propionate 0-14 } [place] in ity o f 50 00:00: each [place] mcg/actuati 00 nostril in Me dical on nasal the Branch spray morning. fluticasone 2021-04- No [id number] 1{spray Use 1 [facility] propionate 0-14 10-25 } [place] in ity of 50 00:00: 00:00 each [place] mcg/actuati 00 :00 nostril in Me dical on nasal the Branch spray morning. fluticasone 2021-04 Yes [id number] 1{spray Use 1 [facility] propionate 0-11 } [place] in ity o f 50 00:00: each [place] mcg/actuati 00 nostril in Me dical on nasal the Branch spray morning. Use 2 spray(s) in each nostril once daily fluticasone 2021-04 Yes [id number] 1{spray Use 1 [facility] propionate 0-11 } [place] in ity o f 50 00:00: each [place] mcg/actuati 00 nostril in Me dical on nasal the Branch spray morning. Use 2 spray(s) in each nostril once daily fluticasone 2021-04 Yes [id number] 1{spray Use 1 [facility] propionate 0-11 } [place] in ity o f 50 00:00: each [place] mcg/actuati 00 nostril in Me dical on nasal the Branch spray morning. Use 2 spray(s) in each nostril once daily fluticasone 2021-04 Yes [id number] 1{spray Use 1 [facility] propionate 0-11 } [place] in ity o f 50 00:00: each [place] mcg/actuati 00 nostril in Me dical on nasal the Branch spray morning. Use 2 spray(s) in each nostril once daily fluticasone 2021-04- No [id number] 1{spray Use 1 [facility] propionate 0-11 10-14 } [place] in ity of 50 00:00: 00:00 each [place] mcg/actuati 00 :00 nostril in Me dical on nasal the Branch spray morning. Use 2 spray(s) in each nostril once daily bromphenira 2021-04 Yes [id number] 5mL Take 5 mL [facility] mine-pseudo 0-10 by mouth 4 it y of ephedrine-D 00:00: (four) [place] M (BROMFED 00 times Medical DM) 2-30-10 daily as Bran ch mg/5 mL needed for syrup Congestion /Allergies . ondansetron 2021-04 Yes [id number] 4mg Take 1 [facility] 4 mg 0-10 tablet by ity of disintegrat 00:00: mouth [place] ing tablet 00 every 8 Medica l (eight) Branch hours as needed for Nausea and Vomiting (N/V). benzonatate 2021-04 Yes [id number] 200mg Take 2 [facility] 100 mg 0-10 capsules ity of capsule 00:00: by mouth [place] 00 every 8 Medical (eight) Branch hours as needed for Cough. bromphenira 2021-04 Yes [id number] 5mL Take 5 mL [facility] mine-pseudo 0-10 by mouth 4 it y of ephedrine-D 00:00: (four) [place] M (BROMFED 00 times Medical DM) 2-30-10 daily as Bran ch mg/5 mL needed for syrup Congestion /Allergies . ondansetron 2021-04 Yes [id number] 4mg Take 1 [facility] 4 mg 0-10 tablet by ity of disintegrat 00:00: mouth [place] ing tablet 00 every 8 Medica l (eight) Branch hours as needed for Nausea and Vomiting (N/V). benzonatate 2021-04 Yes [id number] 200mg Take 2 [facility] 100 mg 0-10 capsules ity of capsule 00:00: by mouth [place] 00 every 8 Medical (eight) Branch hours as needed for Cough. bromphenira 2021-04 Yes [id number] 5mL Take 5 mL [facility] mine-pseudo 0-10 by mouth 4 it y of ephedrine-D 00:00: (four) [place] M (BROMFED 00 times Medical DM) 2-30-10 daily as Bran ch mg/5 mL needed for syrup Congestion /Allergies . ondansetron 2021-04 Yes [id number] 4mg Take 1 [facility] 4 mg 0-10 tablet by ity of disintegrat 00:00: mouth [place] ing tablet 00 every 8 Medica l (eight) Branch hours as needed for Nausea and Vomiting (N/V). benzonatate 2021-04 Yes [id number] 200mg Take 2 [facility] 100 mg 0-10 capsules ity of capsule 00:00: by mouth [place] 00 every 8 Medical (eight) Branch hours as needed for Cough. bromphenira 2021-04 Yes [id number] 5mL Take 5 mL [facility] mine-pseudo 0-10 by mouth 4 it y of ephedrine-D 00:00: (four) [place] M (BROMFED 00 times Medical DM) 2-30-10 daily as Bran ch mg/5 mL needed for syrup Congestion /Allergies . ondansetron 2021-04 Yes [id number] 4mg Take 1 [facility] 4 mg 0-10 tablet by ity of disintegrat 00:00: mouth [place] ing tablet 00 every 8 Medica l (eight) Branch hours as needed for Nausea and Vomiting (N/V). benzonatate 2021-04 Yes [id number] 200mg Take 2 [facility] 100 mg 0-10 capsules ity of capsule 00:00: by mouth [place] 00 every 8 Medical (eight) Branch hours as needed for Cough. bromphenira 2021-04 Yes [id number] 5mL Take 5 mL [facility] mine-pseudo 0-10 by mouth 4 it y of ephedrine-D 00:00: (four) [place] M (BROMFED 00 times Medical DM) 2-30-10 daily as Bran ch mg/5 mL needed for syrup Congestion /Allergies . ondansetron 2021-04 Yes [id number] 4mg Take 1 [facility] 4 mg 0-10 tablet by ity of disintegrat 00:00: mouth [place] ing tablet 00 every 8 Medica l (eight) Branch hours as needed for Nausea and Vomiting (N/V). benzonatate 2021-04 Yes [id number] 200mg Take 2 [facility] 100 mg 0-10 capsules ity of capsule 00:00: by mouth [place] 00 every 8 Medical (eight) Branch hours as needed for Cough. bromphenira 2021-04 Yes [id number] 5mL Take 5 mL [facility] mine-pseudo 0-10 by mouth 4 it y of ephedrine-D 00:00: (four) [place] M (BROMFED 00 times Medical DM) 2-30-10 daily as Bran ch mg/5 mL needed for syrup Congestion /Allergies . ondansetron 2021-04 Yes [id number] 4mg Take 1 [facility] 4 mg 0-10 tablet by ity of disintegrat 00:00: mouth [place] ing tablet 00 every 8 Medica l (eight) Branch hours as needed for Nausea and Vomiting (N/V). benzonatate 2021-04 Yes [id number] 200mg Take 2 [facility] 100 mg 0-10 capsules ity of capsule 00:00: by mouth [place] 00 every 8 Medical (eight) Branch hours as needed for Cough. bromphenira 2021-04 Yes [id number] 5mL Take 5 mL [facility] mine-pseudo 0-10 by mouth 4 it y of ephedrine-D 00:00: (four) [place] M (BROMFED 00 times Medical DM) 2-30-10 daily as Bran ch mg/5 mL needed for syrup Congestion /Allergies . benzonatate 2021-04 Yes [id number] 200mg Take 2 [facility] 100 mg 0-10 capsules ity of capsule 00:00: by mouth [place] 00 every 8 Medical (eight) Branch hours as needed for Cough. bromphenira 2021-04 Yes [id number] 5mL Take 5 mL [facility] mine-pseudo 0-10 by mouth 4 it y of ephedrine-D 00:00: (four) [place] M (BROMFED 00 times Medical DM) 2-30-10 daily as Bran ch mg/5 mL needed for syrup Congestion /Allergies . benzonatate 2021-04 Yes [id number] 200mg Take 2 [facility] 100 mg 0-10 capsules ity of capsule 00:00: by mouth [place] 00 every 8 Medical (eight) Branch hours as needed for Cough. bromphenira 2021-04 Yes [id number] 5mL Take 5 mL [facility] mine-pseudo 0-10 by mouth 4 it y of ephedrine-D 00:00: (four) [place] M (BROMFED 00 times Medical DM) 2-30-10 daily as Bran ch mg/5 mL needed for syrup Congestion /Allergies . benzonatate 2021-04 Yes [id number] 200mg Take 2 [facility] 100 mg 0-10 capsules ity of capsule 00:00: by mouth [place] 00 every 8 Medical (eight) Branch hours as needed for Cough. bromphenira 2021-04 Yes [id number] 5mL Take 5 mL [facility] mine-pseudo 0-10 by mouth 4 it y of ephedrine-D 00:00: (four) [place] M (BROMFED 00 times Medical DM) 2-30-10 daily as Bran ch mg/5 mL needed for syrup Congestion /Allergies . benzonatate 2021-04 Yes [id number] 200mg Take 2 [facility] 100 mg 0-10 capsules ity of capsule 00:00: by mouth [place] 00 every 8 Medical (eight) Branch hours as needed for Cough. bromphenira 2021-04 Yes [id number] 5mL Take 5 mL [facility] mine-pseudo 0-10 by mouth 4 it y of ephedrine-D 00:00: (four) [place] M (BROMFED 00 times Medical DM) 2-30-10 daily as Bran ch mg/5 mL needed for syrup Congestion /Allergies . benzonatate 2021-04 Yes [id number] 200mg Take 2 [facility] 100 mg 0-10 capsules ity of capsule 00:00: by mouth [place] every 8 Medical (eight) Branch hours as needed for Cough. bromphenira 2021-04 Yes [id number] 5mL Take 5 mL [facility] mine-pseudo 0-10 by mouth 4 it y of ephedrine-D 00:00: (four) [place] M (BROMFED 00 times Medical DM) 2-30-10 daily as Bran ch mg/5 mL needed for syrup Congestion /Allergies . benzonatate 2021-04 Yes [id number] 200mg Take 2 [facility] 100 mg 0-10 capsules ity of capsule 00:00: by mouth [place] 00 every 8 Medical (eight) Branch hours as needed for Cough. bromphenira 2021-04 Yes [id number] 5mL Take 5 mL [facility] mine-pseudo 0-10 by mouth 4 it y of ephedrine-D 00:00: (four) [place] M (BROMFED 00 times Medical DM) 2-30-10 daily as Bran ch mg/5 mL needed for syrup Congestion /Allergies . benzonatate 2021-04 Yes [id number] 200mg Take 2 [facility] 100 mg 0-10 capsules ity of capsule 00:00: by mouth [place] 00 every 8 Medical (eight) Branch hours as needed for Cough. bromphenira 2021-04 Yes [id number] 5mL Take 5 mL [facility] mine-pseudo 0-10 by mouth 4 it y of ephedrine-D 00:00: (four) [place] M (BROMFED 00 times Medical DM) 2-30-10 daily as Bran ch mg/5 mL needed for syrup Congestion /Allergies . benzonatate 2021-04 Yes [id number] 200mg Take 2 [facility] 100 mg 0-10 capsules ity of capsule 00:00: by mouth [place] 00 every 8 Medical (eight) Branch hours as needed for Cough. bromphenira 2021-04 Yes [id number] 5mL Take 5 mL [facility] mine-pseudo 0-10 by mouth 4 it y of ephedrine-D 00:00: (four) [place] M (BROMFED 00 times Medical DM) 2-30-10 daily as Bran ch mg/5 mL needed for syrup Congestion /Allergies . benzonatate 2021-04 Yes [id number] 200mg Take 2 [facility] 100 mg 0-10 capsules ity of capsule 00:00: by mouth [place] 00 every 8 Medical (eight) Branch hours as needed for Cough. bromphenira 2021-04 Yes [id number] 5mL Take 5 mL [facility] mine-pseudo 0-10 by mouth 4 it y of ephedrine-D 00:00: (four) [place] M (BROMFED 00 times Medical DM) 2-30-10 daily as Bran ch mg/5 mL needed for syrup Congestion /Allergies . benzonatate 2021-04 Yes [id number] 200mg Take 2 [facility] 100 mg 0-10 capsules ity of capsule 00:00: by mouth [place] 00 every 8 Medical (eight) Branch hours as needed for Cough. bromphenira 2021-04 Yes [id number] 5mL Take 5 mL [facility] mine-pseudo 0-10 by mouth 4 it y of ephedrine-D 00:00: (four) [place] M (BROMFED 00 times Medical DM) 2-30-10 daily as Bran ch mg/5 mL needed for syrup Congestion /Allergies . benzonatate 2021-04 Yes [id number] 200mg Take 2 [facility] 100 mg 0-10 capsules ity of capsule 00:00: by mouth [place] 00 every 8 Medical (eight) Branch hours as needed for Cough. bromphenira 2021-04 Yes [id number] 5mL Take 5 mL [facility] mine-pseudo 0-10 by mouth 4 it y of ephedrine-D 00:00: (four) [place] M (BROMFED 00 times Medical DM) 2-30-10 daily as Bran ch mg/5 mL needed for syrup Congestion /Allergies . bromphenira 2021-04 Yes [id number] 5mL Take 5 mL [facility] mine-pseudo 0-10 by mouth 4 it y of ephedrine-D 00:00: (four) [place] [facility] (BROMFED 00 times Medical DM) 2-30-10 daily as Bran ch mg/5 mL needed for syrup Congestion /Allergies . bromphenira 2021-04 Yes [id number] 5mL Take 5 mL [facility] mine-pseudo 0-10 by mouth 4 it y of ephedrine-D 00:00: (four) [place] M (BROMFED 00 times Medical DM) 2-30-10 daily as Bran ch mg/5 mL needed for syrup Congestion /Allergies . bromphenira 2021-04 Yes [id number] 5mL Take 5 mL [facility] mine-pseudo 0-10 by mouth 4 it y of ephedrine-D 00:00: (four) [place] (BROMFED 00 times Medical DM) 2-30-10 daily as Bran ch mg/5 mL needed for syrup Congestion /Allergies . bromphenira 2021-04 Yes [id number] 5mL Take 5 mL [facility] mine-pseudo 0-10 by mouth 4 it y of ephedrine-D 00:00: (four) [place] [facility] (BROMFED 00 times Medical DM) 2-30-10 daily as Bran ch mg/5 mL needed for syrup Congestion /Allergies . bromphenira 2021-04 Yes [id number] 5mL Take 5 mL [facility] mine-pseudo 0-10 by mouth 4 it y of ephedrine-D 00:00: (four) [place] (BROMFED 00 times Medical DM) 2-30-10 daily as Bran ch mg/5 mL needed for syrup Congestion /Allergies . bromphenira 2021-04 Yes [id number] 5mL Take 5 mL [facility] mine-pseudo 0-10 by mouth 4 it y of ephedrine-D 00:00: (four) [place] (BROMFED 00 times Medical DM) 2-30-10 daily as Bran ch mg/5 mL needed for syrup Congestion /Allergies . bromphenira 2021-04 Yes [id number] 5mL Take 5 mL [facility] mine-pseudo 0-10 by mouth 4 it y of ephedrine-D 00:00: (four) [place] (BROMFED 00 times Medical DM) 2-30-10 daily as Bran ch mg/5 mL needed for syrup Congestion /Allergies . bromphenira 2021-04 Yes [id number] 5mL Take 5 mL [facility] mine-pseudo 0-10 by mouth 4 it y of ephedrine-D 00:00: (four) [place] (BROMFED 00 times Medical DM) 2-30-10 daily as Bran ch mg/5 mL needed for syrup Congestion /Allergies . bromphenira 2021-04 Yes [id number] 5mL Take 5 mL [facility] mine-pseudo 0-10 by mouth 4 it y of ephedrine-D 00:00: (four) [place] (BROMFED 00 times Medical DM) 2-30-10 daily as Bran ch mg/5 mL needed for syrup Congestion /Allergies . bromphenira 2021-04 Yes [id number] 5mL Take 5 mL [facility] mine-pseudo 0-10 by mouth 4 it y of ephedrine-D 00:00: (four) [place] (BROMFED 00 times Medical DM) 2-30-10 daily as Bran ch mg/5 mL needed for syrup Congestion /Allergies . bromphenira 2021-04 Yes [id number] 5mL Take 5 mL [facility] mine-pseudo 0-10 by mouth 4 it y of ephedrine-D 00:00: (four) [place] (BROMFED 00 times Medical DM) 2-30-10 daily as Bran ch mg/5 mL needed for syrup Congestion /Allergies . bromphenira 2021-04 Yes [id number] 5mL Take 5 mL [facility] mine-pseudo 0-10 by mouth 4 it y of ephedrine-D 00:00: (four) [place] (BROMFED 00 times Medical DM) 2-30-10 daily as Bran ch mg/5 mL needed for syrup Congestion /Allergies . bromphenira 2021-04 Yes [id number] 5mL Take 5 mL [facility] mine-pseudo 0-10 by mouth 4 it y of ephedrine-D 00:00: (four[place] (BROMFED 00 times Medical DM) 2-30-10 daily as [place] ch mg/5 mL needed for syrup Congestion /Allergies . bromphenira 2021-04 Yes [id number] 5mL Take 5 mL [facility] mine-pseudo 0-10 by mouth 4 it y of ephedrine-D 00:00: (four) [place] (BROMFED 00 times Medical DM) 2-30-10 daily as [place] ch mg/5 mL needed for syrup Congestion /Allergies . bromphenira 2021-04 Yes [id number] 5mL Take 5 mL [facility] mine-pseudo 0-10 by mouth 4 it y of ephedrine-D 00:00: (four) [place] (BROMFED 00 times Medical DM) 2-30-10 daily as [place] ch mg/5 mL needed for syrup Congestion /Allergies . bromphenira 2021-04 Yes [id number] 5mL Take 5 mL [facility] mine-pseudo 0-10 by mouth 4 it y of ephedrine-D 00:00: (four) [place] (BROMFED 00 times Medical DM) 2-30-10 daily as [place] ch mg/5 mL needed for syrup Congestion /Allergies . bromphenira 2021-04 Yes [id number] 5mL Take 5 mL [facility] mine-pseudo 0-10 by mouth 4 it y of ephedrine-D 00:00: (four) [place] (BROMFED 00 times Medical DM) 2-30-10 daily as [place] ch mg/5 mL needed for syrup Congestion /Allergies . bromphenira 2021-04 Yes [id number] 5mL Take 5 mL [facility] mine-pseudo 0-10 by mouth 4 it y of ephedrine-D 00:00: (four) [place] (BROMFED 00 times Medical DM) 2-30-10 daily as [place] ch mg/5 mL needed for syrup Congestion /Allergies . bromphenira 2021-04 Yes [id number] 5mL Take 5 mL [facility] mine-pseudo 0-10 by mouth 4 it y of ephedrine-D 00:00: (four) [place] (BROMFED 00 times Medical DM) 2-30-10 daily as [place] ch mg/5 mL needed for syrup Congestion /Allergies . bromphenira 2021-04 Yes [id number] 5mL Take 5 mL [facility] mine-pseudo 0-10 by mouth 4 it y of ephedrine-D 00:00: (four) [place] (BROMFED 00 times Medical DM) 2-30-10 daily as [place] ch mg/5 mL needed for syrup Congestion /Allergies . bromphenira 2021-04 Yes [id number] 5mL Take 5 mL [facility] mine-pseudo 0-10 by mouth 4 it y of ephedrine-D 00:00: (four) [place] (BROMFED 00 times Medical DM) 2-30-10 daily as [place] ch mg/5 mL needed for syrup Congestion /Allergies . bromphenira 2021-04 Yes [id number] 5mL Take 5 mL [facility] mine-pseudo 0-10 by mouth 4 it y of ephedrine-D 00:00: (four) [place] (BROMFED 00 times Medical DM) 2-30-10 daily as [place] ch mg/5 mL needed for syrup Congestion /Allergies . bromphenira 2021-04 Yes [id number] 5mL Take 5 mL [facility] mine-pseudo 0-10 by mouth 4 it y of ephedrine-D 00:00: (four) [place] (BROMFED 00 times Medical DM) 2-30-10 daily as [place] ch mg/5 mL needed for syrup Congestion /Allergies . bromphenira 2021-04 Yes [id number] 5mL Take 5 mL [facility] mine-pseudo 0-10 by mouth 4 it y of ephedrine-D 00:00: (four) [place] (BROMFED 00 times Medical DM) 2-30-10 daily as [place] ch mg/5 mL needed for syrup Congestion /Allergies . bromphenira 2021-04 Yes [id number] 5mL Take 5 mL [facility] mine-pseudo 0-10 by mouth 4 it y of ephedrine-D 00:00: (four) [place] (BROMFED 00 times Medical DM) 2-30-10 daily as [place] ch mg/5 mL needed for syrup Congestion /Allergies . bromphenira 2021-04 Yes [id number] 5mL Take 5 mL [facility] mine-pseudo 0-10 by mouth 4 it y of ephedrine-D 00:00: (four) [place] (BROMFED 00 times Medical DM) 2-30-10 daily as [place] ch mg/5 mL needed for syrup Congestion /Allergies . bromphenira 2021-04 Yes [id number] 5mL Take 5 mL [facility] mine-pseudo 0-10 by mouth 4 it y of ephedrine-D 00:00: (four) [place] (BROMFED 00 times Medical DM) 2-30-10 daily as [place] ch mg/5 mL needed for syrup Congestion /Allergies . bromphenira 2021-04 Yes [id number] 5mL Take 5 mL [facility] mine-pseudo 0-10 by mouth 4 it y of ephedrine-D 00:00: (four) [place] (BROMFED 00 times Medical DM) 2-30-10 daily as [place] ch mg/5 mL needed for syrup Congestion /Allergies . bromphenira 2021-04 Yes [id number] 5mL Take 5 mL [facility] mine-pseudo 0-10 by mouth 4 it y of ephedrine-D 00:00: (four) [place] (BROMFED 00 times Medical DM) 2-30-10 daily as [place] ch mg/5 mL needed for syrup Congestion /Allergies . bromphenira 2021-04 Yes [id number] 5mL Take 5 mL [facility] mine-pseudo 0-10 by mouth 4 it y of ephedrine-D 00:00: (four) [place] (BROMFED 00 times Medical DM) 2-30-10 daily as [place] ch mg/5 mL needed for syrup Congestion /Allergies . bromphenira 2021-04- No [id number] 5mL Take 5 mL [facility] mine-pseudo 0-10 02-18 by mouth 4 i ty of ephedrine-D 00:00: 00:00 (four) [place] [facility] (BROMFED 00 :00 times Medical DM) 2-30-10 daily as [place] ch mg/5 mL needed for syrup Congestion /Allergies . benzonatate 2021-04- No [id number] 200mg Take 2 [facility] 100 mg 0-10 11-03 capsules ity of capsule 00:00: 00:00 by mouth [place] 00 :00 every 8 Medical (eight) Branch hours as needed for Cough. ondansetron 2021-04- No [id number] 4mg Take 1 [facility] 4 mg 0-10 10-25 tablet by ity of disintegrat 00:00: 00:00 mouth [place] tablet 00 :00 every 8 Medica l (eight) Branch hours as needed for Nausea and Vomiting (N/V). fluticasone 2021-04 Yes [id number] 1{spray Use 1 [facility] propionate 0-06 } [place] in ity o f 50 00:00: each [place] mcg/actuati 00 nostril in Me dical on nasal the Branch spray morning. Use 2 spray(s) in each nostril once daily fluticasone 2021-04 Yes [id number] 1{spray Use 1 [facility] propionate 0-06 } [place] in ity o f 50 00:00: each [place] mcg/actuati 00 nostril in Me dical on nasal the Branch spray morning. Use 2 spray(s) in each nostril once daily fluticasone 2021-04- No [id number] 1{spray Use 1 [facility] propionate 0-06 10-11 } [place] in ity of 50 00:00: 00:00 each [place] mcg/actuati 00 :00 nostril in Me dical on nasal the Branch spray morning. Use 2 spray(s) in each nostril once daily fluticasone 2021-04- No [id number] 1{spray Use 1 [facility] propionate 0-06 10-11 } [place] in ity of 50 00:00: 00:00 each [place] mcg/actuati 00 :00 nostril in Me dical on nasal the Branch spray morning. Use 2 spray(s) in each nostril once daily fluticasone 2021-04- No [id number] 1{spray Use 1 [facility] propionate 0-06 10-11 } [place] in ity of 50 00:00: 00:00 each [place] mcg/actuati 00 :00 nostril in Me dical on nasal the Branch spray morning. Use 2 spray(s) in each nostril once daily fluticasone 2021-04- No [id number] 1{spray Use 1 [facility] propionate 0-06 10-11 } [place] in ity of 50 00:00: 00:00 each [place] mcg/actuati 00 :00 nostril in Sd dical on nasal the Branch spray morning. [...] 16:03: drops [place] drops 24 [facility] Pylera 140 Univers ronidazole- [...] 16:03: drops [place] drops 24 [facility] Pylera 140 [facility] ronidazole- [...] 16:03: drops [place] drops 24 [facility] Pylera 140 Univers ronidazole- 9-26 mg-125 ity of tetracyclin 16:03: mg-125 mg [place] (PYLERA) 24 capsule Medica l 140-125-125 Branch mg per capsule doxycycline Yes doxycyclin Univers hyclate 100 9-26 e hyclate ity of mg capsule 16:03: 100 mg [place] [address] capsule Medical Branch atropine 1 Yes atropine 1 U nivers % 9-26 % eye ity of ophthalmic 16:03: drops [place] drops 24 [facility] Yes Pylera 140 Univers ronidazole- 9-26 mg-125 ity of tetracyclin 16:03: mg-125 mg [place] (PYLERA) 24 capsule Medica l 140-125-125 Branch mg per capsule doxycycline Yes doxycyclin Univers hyclate 100 9-26 e hyclate ity of mg capsule 16:03: 100 mg [place] [address] capsule Medical Branch atropine 1 Yes atropine [...] ophthalmic 16:03: drops [place] drops 24 [facility] Pylera 140 Univers ronidazole- [...] ophthalmic 16:03: drops [place] drops 24 [facility] Pylera 140 Univers ronidazole- 9-26 mg-125 ity of tetracyclin 16:03: mg-125 mg [place] (PYLERA) 24 capsule Medica l 140-125-125 Branch mg per capsule doxycycline Yes doxycyclin Univers hyclate 100 9-26 e hyclate ity of mg capsule 16:03: 100 mg [place] [address] capsule Medical Branch atropine 1 Yes atropine 1 U nivers % 9-26 % eye ity of ophthalmic 16:03: drops [place] drops 24 [facility] Yes Pylera 140 Univers ronidazole- 9-26 mg-125 ity of tetracyclin 16:03: mg-125 mg [place] (PYLERA) 24 capsule Medica l 140-125-125 Branch mg per capsule doxycycline Yes doxycyclin Univers hyclate 100 9-26 e hyclate ity of mg capsule 16:03: 100 mg [place] [address] capsule Medical Branch atropine 1 Yes atropine 1 U nivers % 9-26 % eye ity of ophthalmic 16:03: drops [place] drops 24 [facility] Pylera 140 Univers ronidazole- 9-26 mg-125 ity of tetracyclin 16:03: mg-125 mg [place] (PYLERA) 24 capsule Medica l 140-125-125 Branch mg per capsule doxycycline Yes doxycyclin Univers hyclate 100 9-26 e hyclate ity of mg capsule 16:03: 100 mg [place] [address] capsule Medical Branch atropine 1 Yes atropine 1 U nivers % 9-26 % eye ity of ophthalmic 16:03: drops [place] drops 24 Medical Branch [facility] Yes Pylera 140 Univers ronidazole- 9-26 mg-125 ity of tetracyclin 16:03: mg-125 mg [place] (PYLERA) 24 capsule Medica l 140-125-125 Branch mg per capsule doxycycline Yes doxycyclin Univers hyclate 100 9-26 e hyclate ity of mg capsule 16:03: 100 mg [place] [address] capsule Medical Branch atropine 1 Yes atropine 1 U nivers % 9-26 % eye ity of ophthalmic 16:03: drops [place] drops 24 [facility] Yes Pylera 140 Univers ronidazole- 9-26 mg-125 ity of tetracyclin 16:03: mg-125 mg [place] (PYLERA) 24 capsule Medica l 140-125-125 Branch mg per capsule doxycycline Yes doxycyclin Univers hyclate 100 9-26 e hyclate ity of mg capsule 16:03: 100 mg [place] [address] capsule Medical Branch atropine 1 Yes atropine 1 U nivers % 9-26 % eye ity of ophthalmic 16:03: drops [place] drops 24 Medical [facility] Yes Pylera 140 Univers ronidazole- 9-26 mg-125 ity of tetracyclin 16:03: mg-125 mg [place] (PYLERA) 24 capsule Medica l 140-125-125 Branch mg per capsule doxycycline Yes doxycyclin Univers hyclate 100 9-26 e hyclate ity of mg capsule 16:03: 100 mg [place] [address] capsule Medical Branch atropine 1 Yes atropine 1 U nivers % 9-26 % eye ity of ophthalmic 16:03: drops [place] drops 24 Medical Branch [facility] Yes Pylera 140 Univers ronidazole- 9-26 mg-125 ity of tetracyclin 16:03: mg-125 mg [place] (PYLERA) 24 capsule Medica l 140-125-125 Branch mg per capsule doxycycline Yes doxycyclin Univers hyclate 100 9-26 e hyclate ity of mg capsule 16:03: 100 mg [place] [address] capsule Medical Branch atropine 1 Yes atropine 1 U nivers % 9-26 % eye ity of ophthalmic 16:03: drops [place] drops 24 [facility] Yes Pylera 140 Univers ronidazole- 9-26 mg-125 ity of tetracyclin 16:03: mg-125 mg [place] (PYLERA) 24 capsule Medica l 140-125-125 Branch mg per capsule doxycycline Yes doxycyclin Univers hyclate 100 9-26 e hyclate ity of mg capsule 16:03: 100 mg [place] [address] capsule Medical Branch atropine 1 Yes atropine 1 U nivers % 9-26 % eye ity of ophthalmic 16:03: drops [place] drops 24 [facility] Yes Pylera 140 Univers ronidazole- 9-26 mg-125 ity of tetracyclin 16:03: mg-125 mg [place] (PYLERA) 24 capsule Medica l 140-125-125 Branch mg per capsule doxycycline Yes doxycyclin Univers hyclate 100 9-26 e hyclate ity of mg capsule 16:03: 100 mg [place] [address] capsule Medical Branch atropine 1 Yes atropine 1 U nivers % 9-26 % eye ity of ophthalmic 16:03: drops [place] drops 24 [facility] Yes Pylera 140 Univers ronidazole- 9-26 mg-125 ity of tetracyclin 16:03: mg-125 mg [place] (PYLERA) 24 capsule Medica l 140-125-125 Branch mg per capsule doxycycline Yes doxycyclin Univers hyclate 100 9-26 e hyclate ity of mg capsule 16:03: 100 mg [place] [address] capsule Medical Branch atropine 1 Yes atropine 1 U nivers % 9-26 % eye ity of ophthalmic 16:03: drops [place] drops 24 [facility] Branch [facility] Yes Pylera 140 Univers ronidazole- 9-26 mg-125 ity of tetracyclin 16:03: mg-125 mg [place] (PYLERA) 24 capsule Medica l 140-125-125 Branch mg per capsule doxycycline Yes doxycyclin Univers hyclate 100 9-26 e hyclate ity of mg capsule 16:03: 100 mg [place] [address] capsule [facility] Branch atropine 1 Yes atropine 1 U nivers % 9-26 % eye ity of ophthalmic 16:03: drops [place] drops [address] [place] [address] Yes Pylera 140 Univers ronidazole- 9-26 mg-125 ity of tetracyclin 16:03: mg-125 mg [place] (PYLERA) 24 capsule Medica l 140-125-125 Branch mg per capsule doxycycline Yes doxycyclin Univers hyclate 100 9-26 e hyclate ity of mg capsule 16:03: 100 mg [place] [address] capsule [facility] Branch atropine 1 Yes atropine 1 U nivers % 9-26 % eye ity of ophthalmic 16:03: drops [place] drops [address] [place] [address] Yes Pylera 140 Univers ronidazole- 9-26 mg-125 ity of tetracyclin 16:03: mg-125 mg [place] (PYLERA) 24 capsule Medica l 140-125-125 Branch mg per capsule doxycycline Yes doxycyclin Univers hyclate 100 9-26 e hyclate ity of mg capsule 16:03: 100 mg [place] [address] capsule [facility] Branch atropine 1 Yes atropine 1 U nivers % 9-26 % eye ity of ophthalmic 16:03: drops [place] drops [address] [place] [address] Yes Pylera 140 Univers ronidazole- 9-26 mg-125 ity of tetracyclin 16:03: mg-125 mg [place] (PYLERA) 24 capsule Medica l 140-125-125 Branch mg per capsule doxycycline Yes doxycyclin Univers hyclate 100 9-26 e hyclate ity of mg capsule 16:03: 100 mg [place] [address] capsule Medical Branch atropine 1 Yes atropine 1 U nivers % 9-26 % eye ity of ophthalmic 16:03: drops [place] drops [address] [place] [address] Yes Pylera 140 Univers ronidazole- 9-26 mg-125 [...] 16:03: drops [place] drops 24 Medical Branch [facility] Yes Pylera 140 Univers ronidazole- 9-26 mg-125 ity of tetracyclin 16:03: mg-125 mg [place] (PYLERA) 24 capsule Medica l 140-125-125 Branch mg per capsule doxycycline Yes doxycyclin Univers hyclate 100 9-26 e hyclate ity of mg capsule 16:03: 100 mg [place] [address] capsule Medical Branch atropine 1 Yes atropine 1 U nivers % 9-26 % eye ity of ophthalmic 16:03: drops [place] drops [address] [place] [address] Yes Pylera 140 Univers ronidazole- 9-26 mg-125 ity of tetracyclin 16:03: mg-125 mg [place] (PYLERA) 24 capsule Medica l 140-125-125 Branch mg per capsule doxycycline Yes doxycyclin Univers hyclate 100 9-26 e hyclate ity of mg capsule 16:03: 100 mg [place] [address] capsule Medical Branch atropine 1 Yes atropine 1 U nivers % 9-26 % eye ity of ophthalmic 16:03: drops [place] drops [address] [place] [address] Branch atropine 1 Yes atropine 1 U [...] of ophthalmic 16:03: drops [place] drops 24 [facility] atropine 1 Yes atropine 1 U nivers % 9-26 % eye ity of ophthalmic 16:03: drops [place] drops 24 [facility] atropine 1 Yes atropine 1 U nivers % 9-26 % eye ity of ophthalmic 16:03: drops [place] drops 24 [facility] Branch atropine 1 Yes atropine 1 U nivers % 9-26 % eye ity of ophthalmic 16:03: drops [place] drops 24 [facility] atropine 1 Yes atropine 1 U nivers % 9-26 % eye ity of ophthalmic 16:03: drops [place] drops 24 [facility] atropine 1 Yes atropine 1 U nivers % 9-26 % eye ity of ophthalmic 16:03: drops [place] drops 24 [facility] atropine 1 Yes atropine 1 U nivers % 9-26 % eye ity of ophthalmic 16:03: drops [place] drops 24 [facility] Branch atropine 1 Yes atropine 1 U [...] [place] drops 24 Medical Branch meloxicam Yes [id number] 7.5mg Take 1 Univers (MOBIC) 7.5 9-26 tablet by ity of mg tablet 00:00: mouth once [place] 00 daily as Medical needed for Branch Pain (scale 7-10) (use sparingly due to side effects). baclofen Yes [id number] 5mg Take 1 Univers mg tablet 9-26 tablet by ity o f 00:00: mouth 3 [place] 00 (three) Medical times Branch daily as needed (muscle pain or spasm). meloxicam Yes [id number] 7.5mg Take 1 Univers (MOBIC) 7.5 9-26 tablet by ity of mg tablet 00:00: mouth once [place] 00 daily as Medical needed for Branch Pain (scale 7-10) (use sparingly due to side effects). baclofen 5 Yes [id number] 5mg Take 1 Univers mg tablet 9-26 tablet by ity o f 00:00: mouth 3 [place] 00 (three) Medical times Branch daily as needed (muscle pain or spasm). meloxicam 0 Yes [id number] 7.5mg Take 1 Univers (MOBIC) 7.5 9-26 tablet by ity of mg tablet 00:00: mouth once [place] 00 daily as Medical needed for Branch Pain (scale 7-10) (use sparingly due to side effects). baclofen 5 0 Yes [id number] 5mg Take 1 Univers mg tablet 9-26 tablet by ity o f 00:00: mouth 3 (three) Medical times Branch daily as needed (muscle pain or spasm). meloxicam 0 Yes [id number] 7.5mg Take 1 Univers (MOBIC) 7.5 9-26 tablet by ity of mg tablet 00:00: mouth once [place] 00 daily as Medical needed for Branch Pain (scale 7-10) (use sparingly due to side effects). baclofen 5 0 Yes [id number] 5mg Take 1 Univers mg tablet 9-26 tablet by ity o f 00:00: mouth 3 (three) Medical times Branch daily as needed (muscle pain or spasm). meloxicam Yes [id number] 7.5mg Take 1 [facility] (MOBIC) 7.5 9-26 tablet by ity of mg tablet 00:00: mouth once [place] 00 daily as Medical needed for Branch Pain (scale 7-10) (use sparingly due to side effects). baclofen 5 0 Yes [id number] 5mg Take 1 Univers mg tablet 9-26 tablet by ity o f 00:00: mouth 3 (three) Medical times Branch daily as needed (muscle pain or spasm). meloxicam 0 Yes [id number] 7.5mg Take 1 [facility] (MOBIC) 7.5 9-26 tablet by ity of mg tablet 00:00: mouth once [place] 00 daily as Medical needed for Branch Pain (scale 7-10) (use sparingly due to side effects). baclofen 5 0 Yes [id number] 5mg Take 1 Univers mg tablet 9-26 tablet by ity o f 00:00: mouth 3 00 (three) Medical times Branch daily as needed (muscle pain or spasm). pantoprazol 0 Yes Univer s e 40 mg EC 9-26 ity of tablet 00:00: Medical Branch meloxicam 2021-0 Yes [id number] 7.5mg Take 1 Univers (MOBIC) 7.5 9-26 tablet by ity of mg tablet 00:00: mouth once [place] 00 daily as Medical needed for Branch Pain (scale 7-10) (use sparingly due to side effects). baclofen 5 2021-0 Yes [id number] 5mg Take 1 [facility] mg tablet 9-26 tablet by ity o f 00:00: mouth 3 (three) Medical times Branch daily as needed (muscle pain or spasm). pantoprazol 0 Yes Univer s e 40 mg EC 9-26 ity of tablet 00:00: Medical Branch meloxicam 0 Yes [id number] 7.5mg Take 1 Univers (MOBIC) 7.5 9-26 tablet by ity of mg tablet 00:00: mouth once [place] 00 daily as Medical needed for Branch Pain (scale 7-10) (use sparingly due to side effects). baclofen 5 0 Yes [id number] 5mg Take 1 Univers mg tablet 9-26 tablet by ity o f 00:00: mouth 3 (three) Medical times Branch daily as needed (muscle pain or spasm). pantoprazol 2021-0 Yes Univer s e 40 mg EC 9-26 ity of tablet 00:00: Medical Branch meloxicam 2021-0 Yes [id number] 7.5mg Take 1 Univers (MOBIC) 7.5 9-26 tablet by ity of mg tablet 00:00: mouth once [place] 00 daily as Medical needed for Branch Pain (scale 7-10) (use sparingly due to side effects). baclofen 5 2021-0 Yes [id number] 5mg Take 1 Univers mg tablet 9-26 tablet by ity o f 00:00: mouth 3 (three) Medical times Branch daily as needed (muscle pain or spasm). pantoprazol 2021-0 Yes Univer s e 40 mg EC 9-26 ity of tablet 00:00: Medical Branch meloxicam 2021-0 Yes [id number] 7.5mg Take 1 Univers (MOBIC) 7.5 9-26 tablet by ity of mg tablet 00:00: mouth once [place] 00 daily as Medical needed for Branch Pain (scale 7-10) (use sparingly due to side effects). baclofen 5 2021-0 Yes [id number] 5mg Take 1 Univers mg tablet 9-26 tablet by ity o f 00:00: mouth 3 (three) Medical times Branch daily as needed (muscle pain or spasm). pantoprazol 2021-0 Yes Univer s e 40 mg EC 9-26 ity of tablet 00:00: Medical Branch meloxicam 2021-0 Yes [id number] 7.5mg Take 1 Univers (MOBIC) 7.5 9-26 tablet by ity of mg tablet 00:00: mouth once [place] 00 daily as Medical needed for Branch Pain (scale 7-10) (use sparingly due to side effects). baclofen 5 2021-0 Yes [id number] 5mg Take 1 Univers mg tablet 9-26 tablet by ity o f 00:00: mouth 3 (three) Medical times Branch daily as needed (muscle pain or spasm). pantoprazol 2021-0 Yes Univer s e 40 mg EC 9-26 ity of tablet 00:00: Medical Branch meloxicam 2021-0 Yes [id number] 7.5mg Take 1 Univers (MOBIC) 7.5 9-26 tablet by ity of mg tablet 00:00: mouth once [place] 00 daily as Medical needed for Branch Pain (scale 7-10) (use sparingly due to side effects). baclofen 5 2021-0 Yes [id number] 5mg Take 1 [facility] mg tablet 9-26 tablet by ity o f 00:00: mouth 3 (three) Medical times Branch daily as needed (muscle pain or spasm). pantoprazol 2021-0 Yes Univer s e 40 mg EC 9-26 ity of tablet 00:00: Medical Branch meloxicam 2021-0 Yes [id number] 7.5mg Take 1 [facility] (MOBIC) 7.5 9-26 tablet by ity of mg tablet 00:00: mouth once [place] 00 daily as Medical needed for Branch Pain (scale 7-10) (use sparingly due to side effects). baclofen 5 2022-0 Yes [id number] 5mg Take 1 [facility] mg tablet 9-26 tablet by ity o f 00:00: mouth 3 (three) Medical times Branch daily as needed (muscle pain or spasm). pantoprazol 2021-0 Yes Univer s e 40 mg EC 9-26 ity of tablet 00:00: Medical Branch meloxicam 2021-0 Yes [id number] 7.5mg Take 1 [facility] (MOBIC) 7.5 9-26 tablet by ity of mg tablet 00:00: mouth once [place] 00 daily as Medical needed for Branch Pain (scale 7-10) (use sparingly due to side effects). baclofen 5 2021-0 Yes [id number] 5mg Take 1 [facility] mg tablet 9-26 tablet by ity o f 00:00: mouth 3 (three) Medical times Branch daily as needed (muscle pain or spasm). pantoprazol 2021-0 Yes Univer s e 40 mg EC 9-26 ity of tablet 00:00: Medical Branch meloxicam 0 Yes [id number] 7.5mg Take 1 [facility] (MOBIC) 7.5 9-26 tablet by ity of mg tablet 00:00: mouth once [place] 00 daily as Medical needed for Branch Pain (scale 7-10) (use sparingly due to side effects). baclofen 5 2021-0 Yes [id number] 5mg Take 1 [facility] mg tablet 9-26 tablet by ity o f 00:00: mouth 3 (three) Medical times Branch daily as needed (muscle pain or spasm). pantoprazol 0 Yes Univer s e 40 mg EC 9-26 ity of tablet 00:00: Medical Branch meloxicam 2021-0 Yes [id number] 7.5mg Take 1 Univers (MOBIC) 7.5 9-26 tablet by ity of mg tablet 00:00: mouth once [place] 00 daily as Medical needed for Branch Pain (scale 7-10) (use sparingly due to side effects). baclofen 5 2021-0 Yes [id number] 5mg Take 1 [facility] mg tablet 9-26 tablet by ity o f 00:00: mouth 3 (three) Medical times Branch daily as needed (muscle pain or spasm). pantoprazol 2021-0 Yes Univer s e 40 mg EC 9-26 ity of tablet 00:00: Medical Branch meloxicam 2021-0 Yes [id number] 7.5mg Take 1 [facility] (MOBIC) 7.5 9-26 tablet by ity of mg tablet 00:00: mouth once [place] 00 daily as Medical needed for Branch Pain (scale 7-10) (use sparingly due to side effects). baclofen 5 2021-0 Yes [id number] 5mg Take 1 [facility] mg tablet 9-26 tablet by ity o f 00:00: mouth 3 (three) Medical times Branch daily as needed (muscle pain or spasm). pantoprazol 2021-0 Yes Univer s e 40 mg EC 9-26 ity of tablet 00:00: Medical Branch meloxicam 0 Yes [id number] 7.5mg Take 1 Univers (MOBIC) 7.5 9-26 tablet by ity of mg tablet 00:00: mouth once [place] 00 daily as Medical needed for Branch Pain (scale 7-10) (use sparingly due to side effects). baclofen 5 0 Yes [id number] 5mg Take 1 [facility] mg tablet 9-26 tablet by ity o f 00:00: mouth 3 (three) Medical times Branch daily as needed (muscle pain or spasm). pantoprazol 0 Yes Univer s e 40 mg EC 9-26 ity of tablet 00:00: Medical Branch meloxicam 2021-0 Yes [id number] 7.5mg Take 1 [facility] (MOBIC) 7.5 9-26 tablet by ity of mg tablet 00:00: mouth once [place] 00 daily as Medical needed for Branch Pain (scale 7-10) (use sparingly due to side effects). baclofen 5 2021-0 Yes [id number] 5mg Take 1 [facility] mg tablet 9-26 tablet by ity o f 00:00: mouth 3 00 (three) Medical times Branch daily as needed (muscle pain or spasm). pantoprazol 2021-0 Yes Univer s e 40 mg EC 9-26 ity of tablet 00:00: Medical Branch meloxicam 2021-0 Yes [id number] 7.5mg Take 1 [facility] (MOBIC) 7.5 9-26 tablet by ity of mg tablet 00:00: mouth once [place] 00 daily as Medical needed for Branch Pain (scale 7-10) (use sparingly due to side effects). baclofen 5 2021-0 Yes [id number] 5mg Take 1 [facility] mg tablet 9-26 tablet by [facility] o f 00:00: mouth 3 [place] 00 (three) Medical times Branch daily as needed (muscle pain or spasm). pantoprazol 2021-0 Yes [facility] 40 mg EC 9-26 [facility] of tablet 00:00: 00 Medical [facility] meloxicam 2021-0 Yes [id number] 7.5mg Take 1 [facility] (MOBIC) 7.5 9-26 tablet by [facility] of mg tablet 00:00: mouth once [place] 00 daily as Medical needed for Branch Pain (scale 7-10) (use sparingly due to side effects). baclofen 5 2021-0 Yes [id number] 5mg Take 1 [facility] mg tablet 9-26 tablet by [facility] o f 00:00: mouth 3 00 (three) Medical times Branch daily as needed (muscle pain or spasm). pantoprazol 2021-0 Yes [facility] 40 mg EC 9-26 it[facility] of tablet 00:00: Medical Branch meloxicam 2021-0 Yes [id number] 7.5mg Take 1 [facility] (MOBIC) 7.5 9-26 tablet by [facility] of mg tablet 00:00: mouth once [place] 00 daily as Medical needed for Branch Pain (scale 7-10) (use sparingly due to side effects). baclofen 5 2021-0 Yes [id number] 5mg Take 1 [facility] mg tablet 9-26 tablet by [facility] o f 00:00: mouth 3 00 (three) Medical times Branch daily as needed (muscle pain or spasm). pantoprazol 2021-0 Yes [facility] 40 mg EC 9-26 it[facility] of tablet 00:00: Medical Branch meloxicam 2021-0 Yes [id number] 7.5mg Take 1 [facility] (MOBIC) 7.5 9-26 tablet by [facility] of mg tablet 00:00: mouth once [place] 00 daily as Medical needed for Branch Pain (scale 7-10) (use sparingly due to side effects). baclofen 5 2021-0 Yes [id number] 5mg Take 1 [facility] mg tablet 9-26 tablet by [facility] o f 00:00: mouth 3 (three) Medical times Branch daily as needed (muscle pain or spasm). pantoprazol 2021-0 Yes [facility] 40 mg EC 9-26 [facility] of tablet 00:00: Medical Branch meloxicam 2021-0 Yes [id number] 7.5mg Take 1 [facility] (MOB[facility]) 7.5 9-26 tablet by [facility] of mg tablet 00:00: mouth once [place] 00 daily as Medical needed for Branch Pain (scale 7-10) (use sparingly due to side effects). baclofen 5 2021-0 Yes [id number] 5mg Take 1 [facility] mg tablet 9-26 tablet by [facility] o f 00:00: mouth 3 (three) Medical times Branch daily as needed (muscle pain or spasm). pantoprazol 2021-0 Yes [facility] 40 mg EC 9-26 it[facility] of tablet 00:00: Medical Branch meloxicam 2021-0 Yes [id number] 7.5mg Take 1 [facility] (MOB[facility]) 7.5 9-26 tablet by [facility] of mg tablet 00:00: mouth once [place] 00 daily as Medical needed for Branch Pain (scale 7-10) (use sparingly due to side effects). baclofen 5 0 Yes [id number] 5mg Take 1 [facility] mg tablet 9-26 tablet by [facility] o f 00:00: mouth 3 (three) Medical times Branch daily as needed (muscle pain or spasm). pantoprazol 2021-0 Yes [facility] 40 mg EC 9-26 [facility] of tablet 00:00: Medical Branch meloxicam 2021-0 Yes [id number] 7.5mg Take 1 [facility] (MOB[facility]) 7.5 9-26 tablet by [facility] of mg tablet 00:00: mouth once [place] 00 daily as Medical needed for Branch Pain (scale 7-10) (use sparingly due to side effects). baclofen 5 2021-0 Yes [id number] 5mg Take 1 [facility] mg tablet 9-26 tablet by [facility] o f 00:00: mouth 3 (three) Medical times Branch daily as needed (muscle pain or spasm). pantoprazol 2021-0 Yes [facility] 40 mg EC 9-26 [facility] of tablet 00:00: Medical Branch meloxicam 2021-0 Yes [id number] 7.5mg Take 1 [facility] (MOB[facility]) 7.5 9-26 tablet by [facility] of mg tablet 00:00: mouth once [place] 00 daily as Medical needed for Branch Pain (scale 7-10) (use sparingly due to side effects). baclofen 5 2021-0 Yes [id number] 5mg Take 1 [facility] mg tablet 9-26 tablet by [facility] o f 00:00: mouth 3 (three) Medical times Branch daily as needed (muscle pain or spasm). pantoprazol 2021-0 Yes [facility] 40 mg EC 9-26 [facility] of tablet 00:00: Medical Branch meloxicam 2021-0 Yes [id number] 7.5mg Take 1 [facility] (MOB[facility]) 7.5 9-26 tablet by [facility] of mg tablet 00:00: mouth once [place] 00 daily as Medical needed for Branch Pain (scale 7-10) (use sparingly due to side effects). baclofen 5 2021-0 Yes [id number] 5mg Take 1 [facility] mg tablet 9-26 tablet by [facility] o f 00:00: mouth 3 (three) Medical times Branch daily as needed (muscle pain or spasm). pantoprazol 2021-0 Yes [facility] 40 mg EC 9-26 it[facility] of tablet 00:00: Medical Branch meloxicam 2021-0 Yes [id number] 7.5mg Take 1 [facility] (MOBIC) 7.5 9-26 tablet by [facility] of mg tablet 00:00: mouth once [place] 00 daily as Medical needed for Branch Pain (scale 7-10) (use sparingly due to side effects). baclofen 5 2021-0 Yes [id number] 5mg Take 1 [facility] mg tablet 9-26 tablet by [facility] o f 00:00: mouth 3 (three) Medical times Branch daily as needed (muscle pain or spasm). pantoprazol 2021-0 Yes [facility] 40 mg EC 9-26 ity of tablet 00:00: Medical Branch meloxicam 2022-0 Yes [id number] 7.5mg Take 1 [facility] (MOBIC) 7.5 9-26 tablet by [facility] of mg tablet 00:00: mouth once [place] 00 daily as Medical needed for Branch Pain (scale 7-10) (use sparingly due to side effects). baclofen 5 0 Yes [id number] 5mg Take 1 [facility] mg tablet 9-26 tablet by [facility] o f 00:00: mouth 3 (three) Medical times Branch daily as needed (muscle pain or spasm). pantoprazol 0 Yes [facility] 40 mg EC 9-26 ity of tablet 00:00: Medical Branch meloxicam Yes [id number] 7.5mg Take 1 [facility] (MOBIC) 7.5 9-26 tablet by [facility] of mg tablet 00:00: mouth once [place] 00 daily as Medical needed for Branch Pain (scale 7-10) (use sparingly due to side effects). baclofen 5 Yes [id number] 5mg Take 1 [facility] mg tablet 9-26 tablet by [facility] o f 00:00: mouth 3 (three) Medical times Branch daily as needed (muscle pain or spasm). pantoprazol Yes [facility] 40 mg EC 9-26 [facility] of tablet 00:00: Medical Branch meloxicam 0 Yes [id number] 7.5mg Take 1 [facility] (MOBIC) 7.5 9-26 tablet by [facility] of mg tablet 00:00: mouth once [place] 00 daily as Medical needed for Branch Pain (scale 7-10) (use sparingly due to side effects). baclofen 5 Yes [id number] 5mg Take 1 [facility] mg tablet 9-26 tablet by [facility] o f 00:00: mouth 3 (three) Medical times Branch daily as needed (muscle pain or spasm). pantoprazol Yes [facility] 40 mg EC 9-26 [facility] of tablet 00:00: Medical Branch meloxicam 0 Yes [id number] 7.5mg Take 1 [facility] (MOBIC) 7.5 9-26 tablet by [facility] of mg tablet 00:00: mouth once [place] 00 daily as Medical needed for Branch Pain (scale 7-10) (use sparingly due to side effects). baclofen 5 2021-0 Yes [id number] 5mg Take 1 [facility] mg tablet 9-26 tablet by [facility] o f 00:00: mouth 3 (three) Medical times Branch daily as needed (muscle pain or spasm). pantoprazol 0 Yes [facility] 40 mg EC 9-26 ity of tablet 00:00: Medical Branch meloxicam 0 Yes [id number] 7.5mg Take 1 [facility] (MOBIC) 7.5 9-26 tablet by [facility] of mg tablet 00:00: mouth once [place] 00 daily as Medical needed for Branch Pain (scale 7-10) (use sparingly due to side effects). baclofen 5 2021-0 Yes [id number] 5mg Take 1 [facility] mg tablet 9-26 tablet by [facility] o f 00:00: mouth 3 00 (three) Medical times Branch daily as needed (muscle pain or spasm). pantoprazol 0 Yes [facility] 40 mg EC 9-26 it[facility] of tablet 00:00: Medical Branch meloxicam 0 Yes [id number] 7.5mg Take 1 [facility] (MOBIC) 7.5 9-26 tablet by [facility] of mg tablet 00:00: mouth once [place] 00 daily as Medical needed for Branch Pain (scale 7-10) (use sparingly due to side effects). pantoprazol 0 Yes [facility] 40 mg EC 9-26 [facility] of tablet 00:00: Medical Branch meloxicam 2021-0 Yes [id number] 7.5mg Take 1 [facility] (MOBIC) 7.5 9-26 tablet by [facility] of mg tablet 00:00: mouth once [place] 00 daily as Medical needed for Branch Pain (scale 7-10) (use sparingly due to side effects). pantoprazol 0 Yes [facility] 40 mg EC 9-26 ity of tablet 00:00: Medical Branch meloxicam 2021-0 Yes [id number] 7.5mg Take 1 [facility] (MOBIC) 7.5 9-26 tablet by [facility] of mg tablet 00:00: mouth once [place] 00 daily as Medical needed for Branch Pain (scale 7-10) (use sparingly due to side effects). pantoprazol 2021-0 Yes [facility] 40 mg EC 9-26 it[facility] of tablet 00:00: Medical Branch meloxicam 2021-0 Yes [id number] 7.5mg Take 1 [facility] (MOB[facility]) 7.5 9-26 tablet by [facility] of mg tablet 00:00: mouth once [place] 00 daily as Medical needed for Branch Pain (scale 7-10) (use sparingly due to side effects). pantoprazol 0 Yes [facility] 40 mg EC 9-26 ity of tablet 00:00: Medical Branch meloxicam 2021-0 Yes [id number] 7.5mg Take 1 [facility] (MOBIC) 7.5 9-26 tablet by [facility] of mg tablet 00:00: mouth once [place] 00 daily as Medical needed for Branch Pain (scale 7-10) (use sparingly due to side effects). pantoprazol 0 Yes [facility] 40 mg EC 9-26 ity of tablet 00:00: Medical Branch meloxicam 0 Yes [id number] 7.5mg Take 1 [facility] (MOBIC) 7.5 9-26 tablet by [facility] of mg tablet 00:00: mouth once [place] 00 daily as Medical needed for Branch Pain (scale 7-10) (use sparingly due to side effects). pantoprazol 0 Yes [facility] 40 mg EC 9-26 ity of tablet 00:00: Medical Branch meloxicam 2021-0 Yes [id number] 7.5mg Take 1 [facility] (MOBIC) 7.5 9-26 tablet by [facility] of mg tablet 00:00: mouth once [place] 00 daily as Medical needed for Branch Pain (scale 7-10) (use sparingly due to side effects). pantoprazol 0 Yes [facility] 40 mg EC 9-26 ity of tablet 00:00: Medical Branch meloxicam 2021-0 Yes [id number] 7.5mg Take 1 [facility] (MOBIC) 7.5 9-26 tablet by [facility] of mg tablet 00:00: mouth once [place] 00 daily as Medical needed for Branch Pain (scale 7-10) (use sparingly due to side effects). pantoprazol 2021-0 Yes [facility] 40 mg EC 9-26 ity of tablet 00:00: Medical Branch meloxicam 2021-0 Yes [id number] 7.5mg Take 1 [facility] (MOBIC) 7.5 9-26 tablet by [facility] of mg tablet 00:00: mouth once [place] 00 daily as Medical needed for Branch Pain (scale 7-10) (use sparingly due to side effects). pantoprazol 0 Yes [facility] 40 mg EC 9-26 ity of tablet 00:00: Medical Branch meloxicam 0 Yes [id number] 7.5mg Take 1 [facility] (MOBIC) 7.5 9-26 tablet by [facility] of mg tablet 00:00: mouth once [place] 00 daily as Medical needed for Branch Pain (scale 7-10) (use sparingly due to side effects). pantoprazol Yes [facility] 40 mg EC 9-26 ity of tablet 00:00: Medical Branch meloxicam 0 Yes [id number] 7.5mg Take 1 [facility] (MOBIC) 7.5 9-26 tablet by [facility] of mg tablet 00:00: mouth once [place] 00 daily as Medical needed for Branch Pain (scale 7-10) (use sparingly due to side effects). pantoprazol 0 Yes [facility] 40 mg EC 9-26 ity of tablet 00:00: Medical Branch meloxicam 2021-0 Yes [id number] 7.5mg Take 1 [facility] (MOBIC) 7.5 9-26 tablet by [facility] of mg tablet 00:00: mouth once [place] 00 daily as Medical needed for Branch Pain (scale 7-10) (use sparingly due to side effects). pantoprazol 0 Yes [facility] 40 mg EC 9-26 ity of tablet 00:00: Medical Branch meloxicam 2021-0 Yes [id number] 7.5mg Take 1 [facility] (MOBIC) 7.5 9-26 tablet by [facility] of mg tablet 00:00: mouth once [place] 00 daily as Medical needed for Branch Pain (scale 7-10) (use sparingly due to side effects). pantoprazol Yes [facility] 40 mg EC 9-26 ity of tablet 00:00: Medical Branch meloxicam 0 Yes [id number] 7.5mg Take 1 [facility] (MOBIC) 7.5 9-26 tablet by [facility] of mg tablet 00:00: mouth once [place] 00 daily as Medical needed for Branch Pain (scale 7-10) (use sparingly due to side effects). pantoprazol Yes [facility] 40 mg EC 9-26 ity of tablet 00:00: Medical Branch meloxicam 0 Yes [id number] 7.5mg Take 1 [facility] (MOBIC) 7.5 9-26 tablet by [facility] of mg tablet 00:00: mouth once [place] 00 daily as Medical needed for Branch Pain (scale 7-10) (use sparingly due to side effects). pantoprazol Yes [facility] 40 mg EC 9-26 ity of tablet 00:: Medical Branch meloxicam Yes [id number] 7.5mg Take 1 [facility] (MOBIC) 7.5 9-26 tablet by [facility] of mg tablet 00:00: mouth once [place] 00 daily as Medical needed for Branch Pain (scale 7-10) (use sparingly due to side effects). pantoprazol Yes [facility] 40 mg EC 9-26 ity of tablet 00:00: Medical Branch meloxicam 0 Yes [id number] 7.5mg Take 1 [facility] (MOBIC) 7.5 9-26 tablet by [facility] of mg tablet 00:00: mouth once [place] 00 daily as Medical needed for Branch Pain (scale 7-10) (use sparingly due to side effects). pantoprazol Yes [facility] 40 mg EC 9-26 ity of tablet 00:00: Medical Branch meloxicam 0 Yes [id number] 7.5mg Take 1 [facility] (MOBIC) 7.5 9-26 tablet by [facility] of mg tablet 00:00: mouth once [place] 00 daily as Medical needed for Branch Pain (scale 7-10) (use sparingly due to side effects). pantoprazol 0 Yes [facility] 40 mg EC 9-26 ity of tablet 00:00: Medical Branch meloxicam 2021-0 Yes [id number] 7.5mg Take 1 [facility] (MOBIC) 7.5 9-26 tablet by [facility] of mg tablet 00:00: mouth once [place] 00 daily as Medical needed for Branch Pain (scale 7-10) (use sparingly due to side effects). pantoprazol Yes [facility] 40 mg EC 9-26 ity of tablet 00:00: Medical Branch meloxicam 0 Yes [id number] 7.5mg Take 1 [facility] (MOBIC) 7.5 9-26 tablet by [facility] of mg tablet 00:00: mouth once [place] 00 daily as Medical needed for Branch Pain (scale 7-10) (use sparingly due to side effects). pantoprazol Yes [facility] 40 mg EC 9-26 ity of tablet 00:00: Medical Branch meloxicam 0 Yes [id number] 7.5mg Take 1 [facility] (MOBIC) 7.5 9-26 tablet by [facility] of mg tablet 00:00: mouth once [place] 00 daily as Medical needed for Branch Pain (scale 7-10) (use sparingly due to side effects). pantoprazol Yes [facility] 40 mg EC 9-26 ity of tablet 00:00: Medical Branch meloxicam 0 Yes [id number] 7.5mg Take 1 [facility] (MOBIC) 7.5 9-26 tablet by [facility] of mg tablet 00:00: mouth once [place] 00 daily as Medical needed for Branch Pain (scale 7-10) (use sparingly due to side effects). pantoprazol 0 Yes [facility] 40 mg EC 9-26 ity of tablet 00:00: Medical Branch meloxicam 2021-0 Yes [id number] 7.5mg Take 1 [facility] (MOBIC) 7.5 9-26 tablet by [facility] of mg tablet 00:00: mouth once [place] 00 daily as Medical needed for Branch Pain (scale 7-10) (use sparingly due to side effects). pantoprazol 2022-0 Yes [facility] 40 mg EC 9-26 ity of tablet 00:00: Medical Branch meloxicam 2021-0 Yes [id number] 7.5mg Take 1 [facility] (MOBIC) 7.5 9-26 tablet by [facility] of mg tablet 00:00: mouth once [place] 00 daily as Medical needed for Branch Pain (scale 7-10) (use sparingly due to side effects). pantoprazol Yes [facility] 40 mg EC 9-26 ity of tablet 00:00: Medical Branch meloxicam 2021-0 Yes [id number] 7.5mg Take 1 [facility] (MOBIC) 7.5 9-26 tablet by [facility] of mg tablet 00:00: mouth once [place] 00 daily as Medical needed for Branch Pain (scale 7-10) (use sparingly due to side effects). pantoprazol Yes [facility] 40 mg EC 9-26 ity of tablet 00:00: Medical Branch meloxicam 0 Yes [id number] 7.5mg Take 1 [facility] (MOBIC) 7.5 9-26 tablet by [facility] of mg tablet 00:00: mouth once [place] 00 daily as Medical needed for Branch Pain (scale 7-10) (use sparingly due to side effects). pantoprazol Yes [facility] 40 mg EC 9-26 ity of tablet 00:00: Medical Branch meloxicam 0 Yes [id number] 7.5mg Take 1 [facility] (MOBIC) 7.5 9-26 tablet by [facility] of mg tablet 00:00: mouth once [place] 00 daily as Medical needed for Branch Pain (scale 7-10) (use sparingly due to side effects). pantoprazol Yes [facility] 40 mg EC 9-26 ity of tablet 00:00: Medical Branch meloxicam 2021-0 Yes [id number] 7.5mg Take 1 [facility] (MOBIC) 7.5 9-26 tablet by [facility] of mg tablet 00:00: mouth once [place] 00 daily as Medical needed for Branch Pain (scale 7-10) (use sparingly due to side effects). pantoprazol 2022-0 Yes [facility] 40 mg EC 9-26 ity of tablet 00:00: Medical Branch meloxicam 2021-0 Yes [id number] 7.5mg Take 1 [facility] (MOBIC) 7.5 9-26 tablet by [facility] of mg tablet 00:00: mouth once [place] 00 daily as Medical needed for Branch Pain (scale 7-10) (use sparingly due to side effects). pantoprazol 0 Yes [facility] 40 mg EC 9-26 ity of tablet 00:00: Medical Branch meloxicam 0 Yes [id number] 7.5mg Take 1 [facility] (MOBIC) 7.5 9-26 tablet by [facility] of mg tablet 00:00: mouth once [place] 00 daily as Medical needed for Branch Pain (scale 7-10) (use sparingly due to side effects). pantoprazol 0 Yes [facility] 40 mg EC 9-26 ity of tablet 00:00: Medical Branch meloxicam 0 Yes [id number] 7.5mg Take 1 [facility] (MOBIC) 7.5 9-26 tablet by [facility] of mg tablet 00:00: mouth once [place] 00 daily as Medical needed for Branch Pain (scale 7-10) (use sparingly due to side effects). pantoprazol Yes [facility] 40 mg EC 9-26 ity of tablet 00:00: Medical Branch meloxicam 0 Yes [id number] 7.5mg Take 1 [facility] (MOBIC) 7.5 9-26 tablet by [facility] of mg tablet 00:00: mouth once [place] 00 daily as Medical needed for Branch Pain (scale 7-10) (use sparingly due to side effects). pantoprazol 0 Yes [facility] 40 mg EC 9-26 ity of tablet 00:00: Medical Branch meloxicam 2021-0 Yes [id number] 7.5mg Take 1 [facility] (MOBIC) 7.5 9-26 tablet by [facility] of mg tablet 00:00: mouth once [place] 00 daily as Medical needed for Branch Pain (scale 7-10) (use sparingly due to side effects). pantoprazol 0 Yes [facility] 40 mg EC 9-26 ity of tablet 00:00: Medical Branch meloxicam 0 Yes [id number] 7.5mg Take 1 [facility] (MOBIC) 7.5 9-26 tablet by it[facility] of mg tablet 00:00: mouth once [place] 00 daily as Medical needed for Branch Pain (scale 7-10) (use sparingly due to side effects). pantoprazol Yes [facility] 40 mg EC 9-26 ity of tablet 00:00: Medical Branch meloxicam 0 Yes [id number] 7.5mg Take 1 [facility] (MOBIC) 7.5 9-26 tablet by it[facility] of mg tablet 00:00: mouth once [place] 00 daily as Medical needed for Branch Pain (scale 7-10) (use sparingly due to side effects). pantoprazol Yes [facility] 40 mg EC 9-26 ity of tablet 00:: Medical Branch meloxicam Yes [id number] 7.5mg Take 1 [facility] (MOBIC) 7.5 9-26 tablet by [facility] of mg tablet 00:00: mouth once [place] 00 daily as Medical needed for Branch Pain (scale 7-10) (use sparingly due to side effects). pantoprazol Yes [facility] 40 mg EC 9-26 ity of tablet 00:: Medical Branch meloxicam Yes [id number] 7.5mg Take 1 [facility] (MOBIC) 7.5 9-26 tablet by [facility] of mg tablet 00:00: mouth once [place] 00 daily as Medical needed for Branch Pain (scale 7-10) (use sparingly due to side effects). pantoprazol Yes [facility] 40 mg EC 9-26 ity of tablet 00:00: Medical Branch meloxicam 0 Yes [id number] 7.5mg Take 1 [facility] (MOBIC) 7.5 9-26 tablet by it[facility] of mg tablet 00:00: mouth once [place] 00 daily as Medical needed for Branch Pain (scale 7-10) (use sparingly due to side effects). pantoprazol Yes [facility] 40 mg EC 9-26 ity of tablet 00:00: Medical Branch meloxicam 2021-0 Yes [id number] 7.5mg Take 1 [facility] (MOBIC) 7.5 9-26 tablet by it[facility] of mg tablet 00:00: mouth once [place] 00 daily as Medical needed for Branch Pain (scale 7-10) (use sparingly due to side effects). pantoprazol 0 Yes [facility] 40 mg EC 9-26 ity of tablet 00:00: Medical Branch meloxicam 0 Yes [id number] 7.5mg Take 1 [facility] (MOBIC) 7.5 9-26 tablet by [facility] of mg tablet 00:00: mouth once [place] 00 daily as Medical needed for Branch Pain (scale 7-10) (use sparingly due to side effects). pantoprazol Yes [facility] 40 mg EC 9-26 ity of tablet 00:00: Medical Branch meloxicam 0 Yes [id number] 7.5mg Take 1 [facility] (MOBIC) 7.5 9-26 tablet by it[facility] of mg tablet 00:00: mouth once [place] 00 daily as Medical needed for Branch Pain (scale 7-10) (use sparingly due to side effects). pantoprazol Yes [facility] 40 mg EC 9-26 ity of tablet 00:00: Medical Branch meloxicam 0 Yes [id number] 7.5mg Take 1 [facility] (MOBIC) 7.5 9-26 tablet by it[facility] of mg tablet 00:00: mouth once [place] 00 daily as Medical needed for Branch Pain (scale 7-10) (use sparingly due to side effects). pantoprazol Yes [facility] 40 mg EC 9-26 ity of tablet 00:00: Medical Branch meloxicam 2021-0 Yes [id number] 7.5mg Take 1 [facility] (MOBIC) 7.5 9-26 tablet by it[facility] of mg tablet 00:00: mouth once [place] 00 daily as Medical needed for Branch Pain (scale 7-10) (use sparingly due to side effects). pantoprazol Yes [facility] 40 mg EC 9-26 ity of tablet 00:00: Medical Branch meloxicam 2021-0 Yes [id number] 7.5mg Take 1 [facility] (MOBIC) 7.5 9-26 tablet by it[facility] of mg tablet 00:00: mouth once [place] 00 daily as Medical needed for Branch Pain (scale 7-10) (use sparingly due to side effects). pantoprazol 0 Yes [facility] 40 mg EC 9-26 ity of tablet 00:00: Medical Branch meloxicam 2021-0 Yes [id number] 7.5mg Take 1 [facility] (MOBIC) 7.5 9-26 tablet by it[facility] of mg tablet 00:00: mouth once [place] 00 daily as Medical needed for Branch Pain (scale 7-10) (use sparingly due to side effects). pantoprazol 0 Yes [facility] 40 mg EC 9-26 ity of tablet 00:00: [facility] meloxicam 2021-0 Yes [id number] 7.5mg Take 1 [facility] (MOBIC) 7.5 9-26 tablet by ity of mg tablet 00:00: mouth once [place] 00 daily as Medical needed for Branch Pain (scale 7-10) (use sparingly due to side effects). pantoprazol 0 Yes Univer s e 40 mg EC 9-26 ity of tablet 00:00: [facility] meloxicam 0 Yes [id number] 7.5mg Take 1 [facility] (MOBIC) 7.5 9-26 [...] mg EC 9-26 ity of tablet 00:00: [facility] Branch pantoprazol 2021-0 Yes Univer s e 40 mg EC 9-26 ity of tablet 00:00: [facility] pantoprazol 2021-0 Yes Univer s e 40 mg EC 9-26 ity of tablet 00:00: [facility] pantoprazol 2021-0 Yes Univer s e 40 [...] 01-07 ity of tablet 00:00: Medical Branch pantoprazol Yes Univer s e 40 mg EC - ity of tablet 00:00: Medical Branch meloxicam 2022- No [id number] 7.5mg Take 1 [facility] (MOBIC) 7.5 01-07 tablet by it y of mg tablet 00:00: 00:00 mouth once [place] 00 :00 daily as Medical needed for Branch Pain (scale 7-10) (use sparingly due to side effects). meloxicam 2022- No [id number] 7.5mg Take 1 [facility] (MOBIC) 7.5 01-07- tablet by it y of mg tablet 00:00: 00:00 mouth once [place] 00 :00 daily as Medical needed for Branch Pain (scale 7-10) (use sparingly due to side effects). baclofen 5 2021- No [id number] 5mg Take 1 [facility] mg tablet 01-07-16 tablet by ity of 00:00: 00:00 mouth 3 00 :00 (three) Medical times Branch daily as needed (muscle pain or spasm). baclofen 5 2021- No [id number] 5mg Take 1 [facility] mg tablet 01-07-16 [...] per tablet (twelve) Branc h hours. ciprofloxac 2021-0 2- No 500mg Take 500 [facility] in HCl 500 9-23 10-10 mg by ity of mg tablet 00:00: 00:00 mouth [place] 00 :00 every 12 Medical (twelve) Branch hours. neomycin-po Yes APPLY Unive rs lymyxin-dex 9-17 OINTMENT ity of amethasone 00:00: TO THE [place] 3.5 00 LEFT EYE Medical mg/g-10,000 THREE Branch unit/g-0.1 TIMES % DAILY ophthalmic ointment neomycin-po Yes APPLY Unive rs lymyxin-dex 9-17 OINTMENT ity of amethasone 00:00: TO THE [place] 3.5 00 LEFT EYE Medical mg/g-10,000 THREE Branch unit/g-0.1 TIMES % DAILY ophthalmic ointment neomycin-po 2022-0 Yes APPLY Unive rs lymyxin-dex 9-17 OINTMENT ity of amethasone 00:00: TO THE [place] 3.5 00 LEFT EYE Medical mg/g-10,000 THREE Branch unit/g-0.1 TIMES % DAILY ophthalmic ointment neomycin-po 2021-0 Yes APPLY Unive rs lymyxin-dex 9-17 OINTMENT ity of amethasone 00:00: TO THE [place] 3.5 00 LEFT EYE Medical mg/g-10,000 THREE Branch unit/g-0.1 TIMES % DAILY ophthalmic ointment neomycin-po 2021-0 Yes APPLY Unive rs lymyxin-dex 9-17 OINTMENT ity of amethasone 00:00: TO THE [place] 3.5 00 LEFT EYE Medical mg/g-10,000 THREE Branch unit/g-0.1 TIMES % DAILY ophthalmic ointment neomycin-po 2021-0 Yes APPLY Unive rs lymyxin-dex 9-17 OINTMENT ity of amethasone 00:00: TO THE [place] 3.5 00 LEFT EYE Medical mg/g-10,000 THREE Branch unit/g-0.1 TIMES % DAILY ophthalmic ointment neomycin-po 2021-0 Yes APPLY Unive rs lymyxin-dex 9-17 OINTMENT ity of amethasone 00:00: TO THE [place] 3.5 00 LEFT EYE Medical mg/g-10,000 THREE Branch unit/g-0.1 TIMES % DAILY ophthalmic ointment neomycin-po 2021-0 Yes APPLY Unive rs lymyxin-dex 9-17 OINTMENT ity of amethasone 00:00: TO THE [place] 3.5 00 LEFT EYE Medical mg/g-10,000 THREE Branch unit/g-0.1 TIMES % DAILY ophthalmic ointment neomycin-po 2021-0 Yes APPLY Unive rs lymyxin-dex 9-17 OINTMENT ity of amethasone 00:00: TO THE [place] 3.5 00 LEFT EYE Medical mg/g-10,000 THREE Branch unit/g-0.1 TIMES % DAILY ophthalmic ointment neomycin-po 2021-0 Yes APPLY Unive rs lymyxin-dex 9-17 OINTMENT ity of amethasone 00:00: TO THE [place] 3.5 00 LEFT EYE Medical mg/g-10,000 THREE Branch unit/g-0.1 TIMES % DAILY ophthalmic ointment neomycin-po 2022-0 Yes APPLY Unive rs lymyxin-dex 9-17 OINTMENT ity of amethasone 00:00: TO THE [place] 3.5 LEFT EYE Medical mg/g-10,000 THREE Branch unit/g-0.1 TIMES % DAILY ophthalmic ointment neomycin-po 2022-0 Yes APPLY Unive rs lymyxin-dex 9-17 OINTMENT ity of amethasone 00:00: TO THE [place] [address] LEFT EYE Medical mg/g-10,000 THREE Branch unit/g-0.1 TIMES % DAILY ophthalmic ointment neomycin-po 2022-0 Yes APPLY Unive rs lymyxin-dex 9-17 OINTMENT ity of amethasone 00:00: TO THE [place] [address].[facility] LEFT EYE Medical mg/g-10,000 THREE Branch unit/g-0.1 TIMES % DAILY ophthalmic ointment neomycin-po 2022-0 Yes APPLY Unive rs lymyxin-dex 9-17 OINTMENT ity of amethasone 00:00: TO THE [place] [address] LEFT EYE Medical mg/g-10,000 THREE Branch unit/g-0.1 TIMES % DAILY ophthalmic ointment neomycin-po 2021-0 Yes APPLY Unive rs lymyxin-dex 9-17 OINTMENT ity of amethasone 00:00: TO THE [place] [address].[facility] LEFT EYE Medical mg/g-10,000 THREE Branch unit/g-0.1 TIMES % DAILY ophthalmic ointment neomycin-po 2021-0 Yes APPLY Unive rs lymyxin-dex 9-17 OINTMENT ity of amethasone 00:00: TO THE [place] [address].[facility] LEFT EYE Medical mg/g-10,000 THREE Branch unit/g-0.1 TIMES % DAILY ophthalmic ointment neomycin-po 2-0 Yes APPLY Unive rs lymyxin-dex 9-17 OINTMENT ity of amethasone 00:00: TO THE [place] 3.[facility] LEFT EYE Medical mg/g-10,000 THREE Branch unit/g-0.1 TIMES % DAILY ophthalmic ointment neomycin-po 2022-0 Yes APPLY Unive rs lymyxin-dex 9-17 OINTMENT ity of amethasone 00:00: TO THE [place] 3.5 00 LEFT EYE Medical mg/g-10,000 THREE Branch unit/g-0.1 TIMES % DAILY ophthalmic ointment neomycin-po 2022-0 Yes APPLY Unive rs lymyxin-dex 9-17 OINTMENT ity of amethasone 00:00: TO THE [place] 3.5 00 LEFT EYE Medical mg/g-10,000 THREE Branch unit/g-0.1 TIMES % DAILY ophthalmic ointment neomycin-po 2022-0 Yes APPLY Unive rs lymyxin-dex 9-17 OINTMENT ity of amethasone 00:00: TO THE [place] 3.5 00 LEFT EYE Medical mg/g-10,000 THREE Branch unit/g-0.1 TIMES % DAILY ophthalmic ointment neomycin-po 2022-0 Yes APPLY Unive rs lymyxin-dex 9-17 OINTMENT ity of amethasone 00:00: TO THE [place] 3.5 00 LEFT EYE Medical mg/g-10,000 THREE Branch unit/g-0.1 TIMES % DAILY ophthalmic ointment neomycin-po 2022-0 Yes APPLY Unive rs lymyxin-dex 9-17 OINTMENT ity of amethasone 00:00: TO THE [place] [address].5 LEFT EYE Medical mg/g-10,000 THREE Branch unit/g-0.1 TIMES % DAILY ophthalmic ointment neomycin-po 2-0 Yes APPLY Unive rs lymyxin-dex 9-17 OINTMENT ity of amethasone 00:00: TO THE [place] [address].5 LEFT EYE Medical mg/g-10,000 THREE Branch unit/g-0.1 TIMES % DAILY ophthalmic ointment neomycin-po 2022-0 Yes APPLY Unive rs lymyxin-dex 9-17 OINTMENT ity of amethasone 00:00: TO THE [place] 3.5 00 LEFT EYE Medical mg/g-10,000 THREE Branch unit/g-0.1 TIMES % DAILY ophthalmic ointment neomycin-po 2022-0 Yes APPLY Unive rs lymyxin-dex 9-17 OINTMENT ity of amethasone 00:00: TO THE [place] 3.5 00 LEFT EYE Medical mg/g-10,000 THREE Branch unit/g-0.1 TIMES % DAILY ophthalmic ointment neomycin-po 2022-0 Yes APPLY Unive rs lymyxin-dex 9-17 OINTMENT ity of amethasone 00:00: TO THE [place] 3.5 00 LEFT EYE Medical mg/g-10,000 THREE Branch unit/g-0.1 TIMES % DAILY ophthalmic ointment neomycin-po 2-0 Yes APPLY Unive rs lymyxin-dex 9-17 OINTMENT ity of amethasone 00:00: TO THE [place] 3.5 00 LEFT EYE Medical mg/g-10,000 THREE Branch unit/g-0.1 TIMES % DAILY ophthalmic ointment neomycin-po 2-0 Yes APPLY Unive rs lymyxin-dex 9-17 OINTMENT ity of amethasone 00:00: TO THE [place] 3.5 00 LEFT EYE Medical mg/g-10,000 THREE Branch unit/g-0.1 TIMES % DAILY ophthalmic ointment neomycin-po 2021-0 Yes APPLY Unive rs lymyxin-dex 9-17 OINTMENT ity of amethasone 00:00: TO THE [place] 3.5 00 LEFT EYE Medical mg/g-10,000 THREE Branch unit/g-0.1 TIMES % DAILY ophthalmic ointment neomycin-po 2021-0 Yes APPLY Unive rs lymyxin-dex 9-17 OINTMENT ity of amethasone 00:00: TO THE [place] 3.5 LEFT EYE Medical mg/g-10,000 THREE Branch unit/g-0.1 TIMES % DAILY ophthalmic ointment neomycin-po 2021-0 Yes APPLY Unive rs lymyxin-dex 9-17 OINTMENT ity of amethasone 00:00: TO THE [place] 3.5 00 LEFT EYE Medical mg/g-10,000 THREE Branch unit/g-0.1 TIMES % DAILY ophthalmic ointment neomycin-po 2021-0 Yes APPLY Unive rs lymyxin-dex 9-17 OINTMENT ity of amethasone 00:00: TO THE [place] 3.5 00 LEFT EYE Medical mg/g-10,000 THREE Branch unit/g-0.1 TIMES % DAILY ophthalmic ointment neomycin-po 2021-0 Yes APPLY Unive rs lymyxin-dex 9-17 OINTMENT ity of amethasone 00:00: TO THE [place] 3.5 00 LEFT EYE Medical mg/g-10,000 THREE Branch unit/g-0.1 TIMES % DAILY ophthalmic ointment neomycin-po 2022-0 Yes APPLY Unive rs lymyxin-dex 9-17 OINTMENT ity of amethasone 00:00: TO THE [place] 3.5 00 LEFT EYE Medical mg/g-10,000 THREE Branch unit/g-0.1 TIMES % DAILY ophthalmic ointment neomycin-po 2022-0 Yes APPLY Unive rs lymyxin-dex 9-17 OINTMENT ity of amethasone 00:00: TO THE [place] 3.5 LEFT EYE Medical mg/g-10,000 THREE Branch unit/g-0.1 TIMES % DAILY ophthalmic ointment neomycin-po 2022-0 Yes APPLY Unive rs lymyxin-dex 9-17 OINTMENT ity of amethasone 00:00: TO THE [address] LEFT EYE Medical mg/g-10,000 THREE Branch unit/g-0.1 TIMES % DAILY ophthalmic ointment neomycin-po 2022-0 Yes APPLY Unive rs lymyxin-dex 9-17 OINTMENT ity of amethasone 00:00: TO THE [place] [address].[facility] LEFT EYE Medical mg/g-10,000 THREE Branch unit/g-0.1 TIMES % DAILY ophthalmic ointment neomycin-po 2022-0 Yes APPLY Unive rs lymyxin-dex 9-17 OINTMENT ity of amethasone 00:00: TO THE [place] [address].[facility] LEFT EYE Medical mg/g-10,000 THREE Branch unit/g-0.1 TIMES % DAILY ophthalmic ointment neomycin-po 2022-0 Yes APPLY Unive rs lymyxin-dex 9-17 OINTMENT ity of amethasone 00:00: TO THE [place] [address].[facility] LEFT EYE Medical mg/g-10,000 THREE Branch unit/g-0.1 TIMES % DAILY ophthalmic ointment neomycin-po 2022-0 Yes APPLY Unive rs lymyxin-dex 9-17 OINTMENT ity of amethasone 00:00: TO THE [place] 3.5 LEFT EYE Medical mg/g-10,000 THREE Branch unit/g-0.1 TIMES % DAILY ophthalmic ointment neomycin-po 2022-0 Yes APPLY Unive rs lymyxin-dex 9-17 OINTMENT ity of amethasone 00:00: TO THE [place] [address].5 LEFT EYE Medical mg/g-10,000 THREE Branch unit/g-0.1 TIMES % DAILY ophthalmic ointment neomycin-po 2021-0 Yes APPLY Unive rs lymyxin-dex 9-17 OINTMENT ity of amethasone 00:00: TO THE [place] 3.5 LEFT EYE Medical mg/g-10,000 THREE Branch unit/g-0.1 TIMES % DAILY ophthalmic ointment neomycin-po 2021-0 Yes APPLY Unive rs lymyxin-dex 9-17 OINTMENT ity of amethasone 00:00: TO THE [place] [address].5 LEFT EYE Medical mg/g-10,000 THREE Branch unit/g-0.1 TIMES % DAILY ophthalmic ointment neomycin-po 2021-0 Yes APPLY Unive rs lymyxin-dex 9-17 OINTMENT ity of amethasone 00:00: TO THE [place] [address].5 LEFT EYE Medical mg/g-10,000 THREE Branch unit/g-0.1 TIMES % DAILY ophthalmic ointment neomycin-po 2021-0 Yes APPLY Unive rs lymyxin-dex 9-17 OINTMENT ity of amethasone 00:00: TO THE [place] [address] LEFT EYE Medical mg/g-10,000 THREE Branch unit/g-0.1 TIMES % DAILY ophthalmic ointment neomycin-po 2021-0 Yes APPLY Unive rs lymyxin-dex 9-17 OINTMENT ity of amethasone 00:00: TO THE [place] [address].5 LEFT EYE Medical mg/g-10,000 THREE Branch unit/g-0.1 TIMES % DAILY ophthalmic ointment neomycin-po 2021-0 Yes APPLY Unive rs lymyxin-dex 9-17 OINTMENT ity of amethasone 00:00: TO THE [place] [address].5 LEFT EYE Medical mg/g-10,000 THREE Branch unit/g-0.1 TIMES % DAILY ophthalmic ointment neomycin-po 2021-0 Yes APPLY Unive rs lymyxin-dex 9-17 OINTMENT ity of amethasone 00:00: TO THE [place] [address].5 LEFT EYE Medical mg/g-10,000 THREE Branch unit/g-0.1 TIMES % DAILY ophthalmic ointment neomycin-po 2021-0 2022- No APPLY Univ ers lymyxin-dex 9-17 02-18 OINTMENT ity of amethasone 00:00: 00:00 [place] 3.5 [place] :00 LEFT EYE Medical mg/g-10,000 THREE Branch unit/g-0.1 TIMES % DAILY ophthalmic ointment [facility] Yes [id number] TAKE 1 U nivers mg tablet 9-16 TABLET BY ity o f 00:00: MOUTH [place] 00 DAILY. Medical STOP Branch JARDIANCE. DROPLET PEN Yes [id number] USE [facility] NEEDLE 31 9-16 DIRECTED ity of gauge x 00:00: TO INJECT [place] 5/16" Ndle 00 INSULIN Medica l ONCE DAILY Branch [facility] 10 Yes [id number] TAKE 1 U nivers mg tablet 9-16 TABLET BY ity o f 00:00: MOUTH [place] 00 DAILY. Medical STOP Branch JARDIANCE. DROPLET PEN Yes [id number] USE [facility] NEEDLE 31 9-16 DIRECTED ity of gauge x 00:00: TO INJECT [place] 5/16" Ndle 00 INSULIN Medica l ONCE DAILY Branch [place] [address] Yes [id number] TAKE 1 U nivers mg tablet 9-16 TABLET BY ity o f 00:00: MOUTH [place] 00 DAILY. Medical STOP Branch JARDIANCE. DROPLET PEN 0 Yes [id number] USE [facility] NEEDLE 31 9-16 DIRECTED ity of gauge x 00:00: TO INJECT [place] 5/16" Ndle 00 INSULIN Medica l ONCE DAILY Branch [place] [address] Yes [id number] TAKE 1 U nivers mg tablet 9-16 TABLET BY ity o f 00:00: MOUTH [place] 00 DAILY. Medical STOP Branch JARDIANCE. DROPLET PEN 0 Yes [id number] USE [facility] NEEDLE 31 9-16 DIRECTED ity of gauge x 00:00: TO INJECT [place] 5/16" Ndle 00 INSULIN Medica l ONCE DAILY Branch [place] [address] Yes [id number] TAKE 1 U nivers mg tablet 9-16 TABLET BY ity o f 00:00: MOUTH [place] 00 DAILY. Medical STOP Branch JARDIANCE. DROPLET PEN 0 Yes [id number] USE [facility] NEEDLE 31 9-16 DIRECTED ity of gauge x 00:00: TO INJECT [place] 5/16" Ndle 00 INSULIN Medica l ONCE DAILY Branch [facility] 10 Yes [id number] TAKE 1 U nivers mg tablet 9-16 TABLET BY ity o f 00:00: MOUTH [place] 00 DAILY. Medical STOP Branch JARDIANCE. DROPLET PEN 0 Yes [id number] USE [facility] NEEDLE 31 9-16 DIRECTED ity of gauge x 00:00: TO INJECT [place] 5/16" Ndle 00 INSULIN Medica l ONCE DAILY Branch [place] [address] Yes [id number] TAKE 1 U nivers mg tablet 9-16 TABLET BY ity o f 00:00: MOUTH [place] 00 DAILY. Medical STOP Branch JARDIANCE. DROPLET PEN Yes [id number] USE [facility] NEEDLE 31 9-16 DIRECTED ity of gauge x 00:00: TO INJECT [place] 5/16" Ndle 00 INSULIN Medica l ONCE DAILY Branch [place] [address] Yes [id number] TAKE 1 U nivers mg tablet 9-16 TABLET BY ity o f 00:00: MOUTH [place] 00 DAILY. Medical STOP Branch JARDIANCE. DROPLET PEN 0 Yes [id number] USE [facility] NEEDLE 31 9-16 DIRECTED ity of gauge x 00:00: TO INJECT [place] 5/16" Ndle 00 INSULIN Medica l ONCE DAILY Branch [place] [address] Yes [id number] TAKE 1 U nivers mg tablet 9-16 TABLET BY ity o f 00:00: MOUTH [place] 00 DAILY. Medical STOP Branch JARDIANCE. DROPLET PEN 0 Yes [id number] USE [facility] NEEDLE 31 9-16 DIRECTED ity of gauge x 00:00: TO INJECT [place] 5/16" Ndle 00 INSULIN Medica l ONCE DAILY Branch [place] [address] 0 Yes [id number] TAKE 1 U nivers mg tablet 9-16 TABLET BY ity o f 00:00: MOUTH [place] 00 DAILY. Medical STOP Branch JARDIANCE. DROPLET PEN 0 Yes [id number] USE [facility] NEEDLE 31 9-16 DIRECTED ity of gauge x 00:00: TO INJECT [place] 5/16" Ndle 00 INSULIN Medica l ONCE DAILY Branch [facility] 10 0 Yes [id number] TAKE 1 U nivers mg tablet 9-16 TABLET BY ity o f 00:00: MOUTH [place] 00 DAILY. Medical STOP Branch JARDIANCE. DROPLET PEN Yes [id number] USE [facility] NEEDLE 31 9-16 DIRECTED ity of gauge x 00:00: TO INJECT [place] 5/16" N[place] 00 INSULIN Medica l ONCE DAILY Branch [place] [address] Yes [id number] TAKE 1 U nivers mg tablet 9-16 TABLET BY ity o f 00:00: MOUTH [place] 00 DAILY. Medical STOP Branch JARDIANCE. DROPLET PEN Yes [id number] USE [facility] NEEDLE 31 9-16 DIRECTED ity of gauge x 00:00: TO INJECT [place] 5/16" N[place] 00 INSULIN Medica l ONCE DAILY Branch [place] [address] Yes [id number] TAKE 1 U nivers mg tablet 9-16 TABLET BY ity o f 00:00: MOUTH [place] 00 DAILY. Medical STOP Branch JARDIANCE. DROPLET PEN Yes [id number] USE [facility] NEEDLE 31 9-16 DIRECTED ity of gauge x 00:00: TO INJECT [place] 5/16" N[place] 00 INSULIN Medica l ONCE DAILY Branch [place] [address] Yes [id number] TAKE 1 U nivers mg tablet 9-16 TABLET BY ity o f 00:00: MOUTH [place] 00 DAILY. Medical STOP Branch JARDIANCE. DROPLET PEN Yes [id number] USE [facility] NEEDLE 31 9-16 DIRECTED ity of gauge x 00:00: TO INJECT [place] 5/16" N[place] 00 INSULIN Medica l ONCE DAILY Branch [place] [address] Yes [id number] TAKE 1 U nivers mg tablet 9-16 TABLET BY ity o f 00:00: MOUTH [place] 00 DAILY. Medical STOP Branch JARDIANCE. DROPLET PEN 0 Yes [id number] USE [facility] NEEDLE 31 9-16 DIRECTED ity of gauge x 00:00: TO INJECT [place] 5/16" [place] 00 INSULIN Medica l ONCE DAILY Branch [place] [address] Yes [id number] TAKE 1 U nivers mg tablet 9-16 TABLET BY ity o f 00:00: MOUTH [place] 00 DAILY. Medical STOP Branch JARDIANCE. DROPLET PEN 0 Yes [id number] USE [facility] NEEDLE 31 9-16 DIRECTED ity of gauge x 00:00: TO INJECT [place] 5/16" N[place] 00 INSULIN Medica l ONCE DAILY Branch [place] [address] Yes [id number] TAKE 1 U nivers mg tablet 9-16 TABLET BY ity o f 00:00: MOUTH [place] 00 DAILY. Medical STOP Branch JARDIANCE. DROPLET PEN 0 Yes [id number] USE [facility] NEEDLE 31 9-16 DIRECTED ity of gauge x 00:00: TO INJECT [place] 5/16" N[place] 00 INSULIN Medica l ONCE DAILY Branch [place] [address] 0 Yes [id number] TAKE 1 U nivers mg tablet 9-16 TABLET BY ity o f 00:00: MOUTH [place] 00 DAILY. Medical STOP Branch JARDIANCE. DROPLET PEN 0 Yes [id number] USE [facility] NEEDLE 31 9-16 DIRECTED ity of gauge x 00:00: TO INJECT [place] 5/16" N[place] 00 INSULIN Medica l ONCE DAILY Branch [place] [address] Yes [id number] TAKE 1 U nivers mg tablet 9-16 TABLET BY ity o f 00:00: MOUTH [place] 00 DAILY. Medical STOP Branch JARDIANCE. DROPLET PEN 0 Yes [id number] USE [facility] NEEDLE 31 9-16 DIRECTED ity of gauge x 00:00: TO INJECT [place] 5/16" N[place] 00 INSULIN Medica l ONCE DAILY Branch [place] [address] 0 Yes [id number] TAKE 1 U nivers mg tablet 9-16 TABLET BY ity o f 00:00: MOUTH [place] 00 DAILY. Medical STOP Branch JARDIANCE. DROPLET PEN 0 Yes [id number] USE [facility] NEEDLE 31 9-16 DIRECTED ity of gauge x 00:00: TO INJECT [place] 5/16" Ndle 00 INSULIN Medica l ONCE DAILY Branch [place] [address] 0 Yes [id number] TAKE 1 U nivers mg tablet 9-16 TABLET BY ity o f 00:00: MOUTH [place] 00 DAILY. Medical STOP Branch JARDIANCE. DROPLET PEN 0 Yes [id number] USE [facility] NEEDLE 31 9-16 DIRECTED ity of gauge x 00:00: TO INJECT [place] 5/16" Ndle 00 INSULIN Medica l ONCE DAILY Branch [place] [address] 0 Yes [id number] TAKE 1 U nivers mg tablet 9-16 TABLET BY ity o f 00:00: MOUTH [place] 00 DAILY. Medical STOP Branch JARDIANCE. DROPLET PEN 0 Yes [id number] USE [facility] NEEDLE 31 9-16 DIRECTED ity of gauge x 00:00: TO INJECT [place] 5/16" Ndle 00 INSULIN Medica l ONCE DAILY Branch [facility] 10 Yes [id number] TAKE 1 U nivers mg tablet 9-16 TABLET BY ity o f 00:00: MOUTH [place] 00 DAILY. Medical STOP Branch JARDIANCE. DROPLET PEN 0 Yes [id number] USE [facility] NEEDLE 31 9-16 DIRECTED ity of gauge x 00:00: TO INJECT [place] 5/16" N[place] 00 INSULIN Medica l ONCE DAILY Branch [place] [address] Yes [id number] TAKE 1 U nivers mg tablet 9-16 TABLET BY ity o f 00:00: MOUTH [place] 00 DAILY. Medical STOP Branch JARDIANCE. DROPLET PEN 0 Yes [id number] USE [facility] NEEDLE 31 9-16 DIRECTED ity of gauge x 00:00: TO INJECT [place] 5/16" N[place] 00 INSULIN Medica l ONCE DAILY Branch [place] [address] Yes [id number] TAKE 1 U nivers mg tablet 9-16 TABLET BY ity o f 00:00: MOUTH [place] 00 DAILY. Medical STOP Branch JARDIANCE. DROPLET PEN 0 Yes [id number] USE [facility] NEEDLE 31 9-16 DIRECTED ity of gauge x 00:00: TO INJECT [place] 5/16" Ndle 00 INSULIN Medica l ONCE DAILY Branch [place] [address] Yes [id number] TAKE 1 U nivers mg tablet 9-16 TABLET BY ity o f 00:00: MOUTH [place] 00 DAILY. Medical STOP Branch JARDIANCE. DROPLET PEN 0 Yes [id number] USE [facility] NEEDLE 31 9-16 DIRECTED ity of gauge x 00:00: TO INJECT [place] 5/16" Ndle 00 INSULIN Medica l ONCE DAILY Branch [place] [address] 0 Yes [id number] TAKE 1 U nivers mg tablet 9-16 TABLET BY ity o f 00:00: MOUTH [place] 00 DAILY. Medical STOP Branch JARDIANCE. DROPLET PEN 0 Yes [id number] USE [facility] NEEDLE 31 9-16 DIRECTED ity of gauge x 00:00: TO INJECT [place] 5/16" Ndle 00 INSULIN Medica l ONCE DAILY Branch [place] [address] 0 Yes [id number] TAKE 1 U nivers mg tablet 9-16 TABLET BY ity o f 00:00: MOUTH [place] 00 DAILY. Medical STOP Branch JARDIANCE. DROPLET PEN 0 Yes [id number] USE [facility] NEEDLE 31 9-16 DIRECTED ity of gauge x 00:00: TO INJECT [place] 5/16" Ndle 00 INSULIN Medica l ONCE DAILY Branch [place] [address] Yes [id number] TAKE 1 U nivers mg tablet 9-16 TABLET BY ity o f 00:00: MOUTH [place] 00 DAILY. Medical STOP Branch JARDIANCE. DROPLET PEN Yes [id number] USE [facility] NEEDLE 31 9-16 DIRECTED ity of gauge x 00:00: TO INJECT [place] 5/16" Ndle 00 INSULIN Medica l ONCE DAILY Branch [place] [address] Yes [id number] TAKE 1 U nivers mg tablet 9-16 TABLET BY ity o f 00:00: MOUTH [place] 00 DAILY. Medical STOP Branch JARDIANCE. DROPLET PEN Yes [id number] USE [facility] NEEDLE 31 9-16 DIRECTED ity of gauge x 00:00: TO INJECT [place] 5/16" Ndle 00 INSULIN Medica l ONCE DAILY Branch [place] [address] Yes [id number] TAKE 1 U nivers mg tablet 9-16 TABLET BY ity o f 00:00: MOUTH [place] 00 DAILY. Medical STOP Branch JARDIANCE. DROPLET PEN Yes [id number] USE [facility] NEEDLE 31 9-16 DIRECTED ity of gauge x 00:00: TO INJECT [place] 5/16" Ndle 00 INSULIN Medica l ONCE DAILY Branch [place] [address] Yes [id number] TAKE 1 U nivers mg tablet 9-16 TABLET BY ity o f 00:00: MOUTH [place] 00 DAILY. Medical STOP Branch JARDIANCE. DROPLET PEN Yes [id number] USE [facility] NEEDLE 31 9-16 DIRECTED ity of gauge x 00:00: TO INJECT [place] 5/16" Ndle 00 INSULIN Medica l ONCE DAILY Branch [place] [address] Yes [id number] TAKE 1 U nivers mg tablet 9-16 TABLET BY ity o f 00:00: MOUTH [place] 00 DAILY. Medical STOP Branch JARDIANCE. DROPLET PEN 0 Yes [id number] USE [facility] NEEDLE 31 9-16 DIRECTED ity of gauge x 00:00: TO INJECT [place] 5/16" N[place] 00 INSULIN Medica l ONCE DAILY Branch [place] [address] Yes [id number] TAKE 1 U nivers mg tablet 9-16 TABLET BY ity o f 00:00: MOUTH [place] 00 DAILY. Medical STOP Branch JARDIANCE. DROPLET PEN 0 Yes [id number] USE [facility] NEEDLE 31 9-16 DIRECTED ity of gauge x 00:00: TO INJECT [place] 5/16" Ndle 00 INSULIN Medica l ONCE DAILY Branch [place] [address] Yes [id number] TAKE 1 U nivers mg tablet 9-16 TABLET BY ity o f 00:00: MOUTH [place] 00 DAILY. Medical STOP Branch JARDIANCE. DROPLET PEN 0 Yes [id number] USE [facility] NEEDLE 31 9-16 DIRECTED ity of gauge x 00:00: TO INJECT [place] 5/16" Ndle 00 INSULIN Medica l ONCE DAILY Branch [place] [address] Yes [id number] TAKE 1 U nivers mg tablet 9-16 TABLET BY ity o f 00:00: MOUTH [place] 00 DAILY. Medical STOP Branch JARDIANCE. DROPLET PEN 0 Yes [id number] USE [facility] NEEDLE 31 9-16 DIRECTED ity of gauge x 00:00: TO INJECT [place] 5/16" Ndle 00 INSULIN Medica l ONCE DAILY Branch [place] [address] Yes [id number] TAKE 1 U nivers mg tablet 9-16 TABLET BY ity o f 00:00: MOUTH [place] 00 DAILY. Medical STOP Branch JARDIANCE. DROPLET PEN 0 Yes [id number] USE [facility] NEEDLE 31 9-16 DIRECTED ity of gauge x 00:00: TO INJECT [place] 5/16" Ndle 00 INSULIN Medica l ONCE DAILY Branch [place] [address] 0 Yes [id number] TAKE 1 U nivers mg tablet 9-16 TABLET BY ity o f 00:00: MOUTH [place] 00 DAILY. Medical STOP Branch JARDIANCE. DROPLET PEN 0 Yes [id number] USE [facility] NEEDLE 31 9-16 DIRECTED ity of gauge x 00:00: TO INJECT [place] 5/16" Ndle 00 INSULIN Medica l ONCE DAILY Branch [place] [address] Yes [id number] TAKE 1 U nivers mg tablet 9-16 TABLET BY ity o f 00:00: MOUTH [place] 00 DAILY. Medical STOP Branch JARDIANCE. DROPLET PEN 0 Yes [id number] USE [facility] NEEDLE 31 9-16 DIRECTED ity of gauge x 00:00: TO INJECT [place] 5/16" Ndle 00 INSULIN Medica l ONCE DAILY Branch [facility] 10 Yes [id number] TAKE 1 U nivers mg tablet 9-16 TABLET BY ity o f 00:00: MOUTH [place] 00 DAILY. Medical STOP Branch JARDIANCE. DROPLET PEN 0 Yes [id number] USE [facility] NEEDLE 31 9-16 DIRECTED ity of gauge x 00:00: TO INJECT [place] 5/16" Ndle 00 INSULIN Medica l ONCE DAILY Branch [place] [address] Yes [id number] TAKE 1 U nivers mg tablet 9-16 TABLET BY ity o f 00:00: MOUTH [place] 00 DAILY. Medical STOP Branch JARDIANCE. DROPLET PEN 0 Yes [id number] USE [facility] NEEDLE 31 9-16 DIRECTED ity of gauge x 00:00: TO INJECT [place] 5/16" Ndle 00 INSULIN Medica l ONCE DAILY Branch [place] [address] Yes [id number] TAKE 1 U nivers mg tablet 9-16 TABLET BY ity o f 00:00: MOUTH [place] 00 DAILY. Medical STOP Branch JARDIANCE. DROPLET PEN 0 Yes [id number] USE [facility] NEEDLE 31 9-16 DIRECTED ity of gauge x 00:00: TO INJECT [place] 5/16" Ndle 00 INSULIN Medica l ONCE DAILY Branch [place] [address] 0 Yes [id number] TAKE 1 U nivers mg tablet 9-16 TABLET BY ity o f 00:00: MOUTH [place] 00 DAILY. Medical STOP Branch JARDIANCE. DROPLET PEN 0 Yes [id number] USE [facility] NEEDLE 31 9-16 DIRECTED ity of gauge x 00:00: TO INJECT [place] 5/16" Ndle 00 INSULIN Medica l ONCE DAILY Branch [place] [address] 0 Yes [id number] TAKE 1 U nivers mg tablet 9-16 TABLET BY ity o f 00:00: MOUTH [place] 00 DAILY. Medical STOP Branch JARDIANCE. DROPLET PEN 0 Yes [id number] USE [facility] NEEDLE 31 9-16 DIRECTED ity of gauge x 00:00: TO INJECT [place] 5/16" Ndle 00 INSULIN Medica l ONCE DAILY Branch [place] [address] Yes [id number] TAKE 1 U nivers mg tablet 9-16 TABLET BY ity o f 00:00: MOUTH [place] 00 DAILY. Medical STOP Branch JARDIANCE. DROPLET PEN 2021-0 Yes [id number] USE [facility] NEEDLE 31 9-16 DIRECTED ity of gauge x 00:00: TO INJECT [place] 5/16" Ndle 00 INSULIN Medica l ONCE DAILY Branch [place] [address] 0 Yes [id number] TAKE 1 U nivers mg tablet 9-16 TABLET BY ity o f 00:00: MOUTH [place] 00 DAILY. Medical STOP Branch JARDIANCE. DROPLET PEN 2021-0 Yes [id number] USE [facility] NEEDLE 31 9-16 DIRECTED ity of gauge x 00:00: TO INJECT [place] 5/16" Ndle 00 INSULIN Medica l ONCE DAILY Branch [place] [address] 0 Yes [id number] TAKE 1 U nivers mg tablet 9-16 TABLET BY ity o f 00:00: MOUTH [place] 00 DAILY. Medical STOP Branch JARDIANCE. DROPLET PEN 0 Yes [id number] USE [facility] NEEDLE 31 9-16 DIRECTED ity of gauge x 00:00: TO INJECT [place] 5/16" Ndle 00 INSULIN Medica l ONCE DAILY Branch [place] [address] 0 Yes [id number] TAKE 1 U nivers mg tablet 9-16 TABLET BY ity o f 00:00: MOUTH [place] 00 DAILY. Medical STOP Branch JARDIANCE. DROPLET PEN 0 Yes [id number] USE [facility] NEEDLE 31 9-16 DIRECTED ity of gauge x 00:00: TO INJECT [place] 5/16" Ndle 00 INSULIN Medica l ONCE DAILY Branch [place] [address] 0 Yes [id number] TAKE 1 U nivers mg tablet 9-16 TABLET BY ity o f 00:00: MOUTH [place] 00 DAILY. Medical STOP Branch JARDIANCE. DROPLET PEN 2021-0 Yes [id number] USE [facility] NEEDLE 31 9-16 DIRECTED ity of gauge x 00:00: TO INJECT [place] 5/16" Ndle 00 INSULIN Medica l ONCE DAILY Branch [place] [address] 0 Yes [id number] TAKE 1 U nivers mg tablet 9-16 TABLET BY ity o f 00:00: MOUTH [place] 00 DAILY. Medical STOP Branch JARDIANCE. DROPLET PEN 2021-0 Yes [id number] USE [facility] NEEDLE 31 9-16 DIRECTED ity of gauge x 00:00: TO INJECT [place] 5/16" Ndle 00 INSULIN Medica l ONCE DAILY Branch [facility] 10 0 Yes [id number] TAKE 1 U nivers mg tablet 9-16 TABLET BY ity o f 00:00: MOUTH [place] 00 DAILY. Medical STOP Branch JARDIANCE. DROPLET PEN 0 Yes [id number] USE [facility] NEEDLE 31 9-16 DIRECTED ity of gauge x 00:00: TO INJECT [place] 5/16" Ndle 00 INSULIN Medica l ONCE DAILY Branch [facility] 10 0 Yes [id number] TAKE 1 U nivers mg tablet 9-16 TABLET BY ity o f 00:00: MOUTH [place] 00 DAILY. Medical STOP Branch JARDIANCE. DROPLET PEN 0 Yes [id number] USE [facility] NEEDLE 31 9-16 DIRECTED ity of gauge x 00:00: TO INJECT [place] 5/16" Ndle 00 INSULIN Medica l ONCE DAILY Branch [facility] 10 0 Yes [id number] TAKE 1 U nivers mg tablet 9-16 TABLET BY ity o f 00:00: MOUTH [place] 00 DAILY. Medical STOP Branch JARDIANCE. DROPLET PEN 0 Yes [id number] USE [facility] NEEDLE 31 9-16 DIRECTED ity of gauge x 00:00: TO INJECT [place] 5/16" Ndle 00 INSULIN Medica l ONCE DAILY Branch DROPLET PEN 2021-0 Yes [id number] USE [facility] NEEDLE 31 9-16 DIRECTED ity of gauge x 00:00: TO INJECT [place] 5/16" Ndle 00 INSULIN Medica l ONCE DAILY Branch DROPLET PEN 2021-0 Yes [id number] USE [facility] NEEDLE 31 9-16 DIRECTED ity of gauge x 00:00: TO INJECT [place] 5/16" Ndle 00 INSULIN Medica l ONCE DAILY Branch DROPLET PEN 2021-0 Yes [id number] USE [facility] NEEDLE 31 9-16 DIRECTED ity of gauge x 00:00: TO INJECT [place] 5/16" Ndle 00 INSULIN Medica l ONCE DAILY Branch DROPLET PEN 2021-0 Yes [id number] USE [facility] NEEDLE 31 9-16 DIRECTED ity of gauge x 00:00: TO INJECT [place] 5/16" Ndle 00 INSULIN Medica l ONCE DAILY Branch DROPLET PEN 2021-0 Yes [id number] USE [facility] NEEDLE 31 9-16 DIRECTED ity of gauge x 00:00: TO INJECT [place] 5/16" Ndle 00 INSULIN Medica l ONCE DAILY Branch DROPLET PEN 2021-0 Yes [id number] USE [facility] NEEDLE 31 9-16 DIRECTED ity of gauge x 00:00: TO INJECT [place] 5/16" Ndle 00 INSULIN Medica l ONCE DAILY Branch DROPLET PEN 2021-0 Yes [id number] USE [facility] NEEDLE 31 9-16 DIRECTED ity of gauge x 00:00: TO INJECT [place] 5/16" Ndle 00 INSULIN Medica l ONCE DAILY Branch DROPLET PEN 2021-0 Yes [id number] USE [facility] NEEDLE 31 9-16 DIRECTED ity of gauge x 00:00: TO INJECT [place] 5/16" Ndle 00 INSULIN [facility]ica [facility] ONCE DAILY Branch DROPLET PEN 2021-0 Yes [id number] USE [facility] NEEDLE 31 9-16 DIRECTED ity of gauge x 00:00: TO INJECT [place] 5/16" Ndle 00 INSULIN Medica [facility] ONCE DAILY Branch DROPLET PEN 2021-0 Yes [id number] USE [facility] NEEDLE 31 9-16 DIRECTED ity of gauge x 00:00: TO INJECT [place] 5/16" Ndle 00 INSULIN Medica l ONCE DAILY Branch DROPLET PEN 2021-0 Yes [id number] USE [facility] NEEDLE 31 9-16 DIRECTED ity of gauge x 00:00: TO INJECT [place] 5/16" Ndle 00 INSULIN Medica l ONCE DAILY Branch DROPLET PEN 2021-0 Yes [id number] USE [facility] NEEDLE 31 9-16 DIRECTED ity of gauge x 00:00: TO INJECT [place] 5/16" Ndle 00 INSULIN Medica l ONCE DAILY Branch DROPLET PEN 2021-0 Yes [id number] USE [facility] NEEDLE 31 9-16 DIRECTED ity of gauge x 00:00: TO INJECT [place] 5/16" Ndle 00 INSULIN Medica l ONCE DAILY Branch DROPLET PEN 2021-0 Yes [id number] USE [facility] NEEDLE 31 9-16 DIRECTED ity of gauge x 00:00: TO INJECT [place] 5/16" Ndle 00 INSULIN Medica [facility] ONCE DAILY Branch DROPLET PEN 2021-0 Yes [id number] USE [facility] NEEDLE 31 9-16 DIRECTED ity of gauge x 00:00: TO INJECT [place] 5/16" Ndle 00 INSULIN Medica [facility] ONCE DAILY Branch DROPLET PEN 2021-0 Yes [id number] USE [facility] NEEDLE 31 9-16 DIRECTED ity of gauge x 00:00: TO INJECT [place] 5/16" Ndle 00 INSULIN Medica [facility] ONCE DAILY Branch DROPLET PEN 2021-0 Yes [id number] USE [facility] NEEDLE 31 9-16 DIRECTED ity of gauge x 00:00: TO INJECT [place] 5/16" Ndle 00 INSULIN Medica [facility] ONCE DAILY Branch DROPLET PEN 2021-0 Yes [id number] USE [facility] NEEDLE 31 9-16 DIRECTED ity of gauge x 00:00: TO INJECT [place] 5/16" Ndle 00 INSULIN Medica [facility] ONCE DAILY Branch DROPLET PEN 2021-0 Yes [id number] USE [facility] NEEDLE 31 9-16 DIRECTED ity of gauge x 00:00: TO INJECT [place] 5/16" Ndle 00 INSULIN Medica l ONCE DAILY Branch DROPLET PEN 2021-0 Yes [id number] USE [facility] NEEDLE 31 9-16 DIRECTED ity of gauge x 00:00: TO INJECT [place] 5/16" Ndle 00 INSULIN Medica [facility] ONCE DAILY Branch DROPLET PEN 2021-0 Yes [id number] USE [facility] NEEDLE 31 9-16 DIRECTED ity of gauge x 00:00: TO INJECT [place] 5/16" Ndle 00 INSULIN Medica [facility] ONCE DAILY Branch DROPLET PEN 2021-0 Yes [id number] USE [facility] NEEDLE 31 9-16 DIRECTED ity of gauge x 00:00: TO INJECT [place] 5/16" Ndle 00 INSULIN Medica [facility] ONCE DAILY Branch DROPLET PEN 2021-0 Yes [id number] USE [facility] NEEDLE 31 9-16 DIRECTED ity of gauge x 00:00: TO INJECT [place] 5/16" Ndle 00 INSULIN Medica [facility] ONCE DAILY Branch DROPLET PEN 2021-0 Yes [id number] USE [facility] NEEDLE 31 9-16 DIRECTED ity of gauge x 00:00: TO INJECT [place] 5/16" Ndle 00 INSULIN Medica [facility] ONCE DAILY Branch DROPLET PEN 2021-0 Yes [id number] USE [facility] NEEDLE 31 9-16 DIRECTED ity of gauge x 00:00: TO INJECT [place] 5/16" Ndle 00 INSULIN Medica [facility] ONCE DAILY Branch DROPLET PEN 2021-0 Yes [id number] USE [facility] NEEDLE 31 9-16 DIRECTED ity of gauge x 00:00: TO INJECT [place] 5/16" Ndle 00 INSULIN [facility]ica [facility] ONCE DAILY Branch DROPLET PEN 2021-0 Yes [id number] USE [facility] NEEDLE 31 9-16 DIRECTED ity of gauge x 00:00: TO INJECT [place] 5/16" Ndle 00 INSULIN Medica [facility] ONCE DAILY Branch DROPLET PEN 2021-0 Yes [id number] USE [facility] NEEDLE 31 9-16 DIRECTED ity of gauge x 00:00: TO INJECT [place] 5/16" Ndle 00 INSULIN Medica [facility] ONCE DAILY Branch DROPLET PEN 0 Yes [id number] USE [facility] NEEDLE 31 9-16 DIRECTED ity of gauge x 00:00: TO INJECT [place] 5/16" Ndle 00 INSULIN Medica l ONCE DAILY Branch DROPLET PEN Yes [id number] USE [facility] NEEDLE 31 9-16 DIRECTED ity of gauge x 00:00: TO INJECT [place] 5/16" Ndle 00 INSULIN Medica [facility] ONCE DAILY Branch DROPLET PEN Yes [id number] USE [facility] NEEDLE 31 9-16 DIRECTED ity of gauge x 00:00: TO INJECT [place] 5/16" Ndle 00 INSULIN Medica [facility] ONCE DAILY Branch DROPLET PEN Yes [id number] USE [facility] NEEDLE 31 9-16 DIRECTED ity of gauge x 00:00: TO INJECT [place] 5/16" Ndle 00 INSULIN Medica l ONCE DAILY Branch DROPLET PEN 0 2022- No [id number] USE [facility] NEEDLE 31 9-16 04-28 DIRECTED ity o f gauge x 00:00: 00:00 [place]JECT [place] 5/16" Ndle 00 :00 INSULIN Medica l ONCE DAILY Branch FARXIGA 10 2023- No [id number] TAKE 1 [facility] mg tablet - 02-14 TABLET BY ity of 00:00: 00:00 MOUTH [place] 00 :00 DAILY. Medical STOP Branch JARDIANCE. rosuvastati Yes [id number] TAKE 1 [facility] n 20 mg 8-21 TABLET AT ity of tablet 00:00: BEDTIME, [place] 00 STOP Medical TAKING Branch ATORVASTAT IN rosuvastati Yes [id number] TAKE 1 [facility] n 20 mg 8-21 TABLET AT ity of tablet 00:00: BEDTIME, [place] 00 STOP Medical TAKING Branch ATORVASTAT IN rosuvastati Yes [id number] TAKE 1 [facility] n 20 mg 8-21 TABLET AT ity of tablet 00:00: BEDTIME, [place] 00 STOP Medical TAKING Branch ATORVASTAT IN rosuvastati Yes [id number] TAKE 1 [facility] n 20 mg 8-21 TABLET AT ity of tablet 00:00: BEDTIME, [place] 00 STOP Medical TAKING Branch ATORVASTAT IN rosuvastati 0 Yes [id number] TAKE 1 [facility] n 20 mg 8-21 TABLET AT ity of tablet 00:00: BEDTIME, [place] STOP Medical TAKING Branch ATORVASTAT IN rosuvastati 0 Yes [id number] TAKE 1 [facility] n 20 mg 8-21 TABLET AT ity of tablet 00:00: BEDTIME, [place] STOP Medical TAKING Branch ATORVASTAT IN rosuvastati Yes [id number] TAKE 1 [facility] n 20 mg 8-21 TABLET AT ity of tablet 00:00: BEDTIME, [place] STOP Medical TAKING Branch ATORVASTAT IN rosuvastati Yes [id number] TAKE 1 [facility] n 20 mg 8-21 TABLET AT ity of tablet 00:00: BEDTIME, [place] STOP Medical TAKING Branch ATORVASTAT IN rosuvastati 0 Yes [id number] TAKE 1 [facility] n 20 mg 8-21 TABLET AT ity of tablet 00:00: BEDTIME, [place] STOP Medical TAKING Branch ATORVASTAT IN rosuvastati Yes [id number] TAKE 1 [facility] n 20 mg 8-21 TABLET AT ity of tablet 00:00: BEDTIME, [place] STOP Medical TAKING Branch ATORVASTAT IN rosuvastati Yes [id number] TAKE 1 [facility] n 20 mg 8-21 TABLET AT ity of tablet 00:00: BEDTIME, [place] [address] STOP Medical TAKING Branch ATORVASTAT IN rosuvastati 0 Yes [id number] TAKE 1 [facility] n 20 mg 8-21 TABLET AT ity of tablet 00:00: BEDTIME, [place] [address] STOP Medical TAKING Branch ATORVASTAT IN rosuvastati 0 Yes [id number] TAKE 1 [facility] n 20 mg 8-21 TABLET AT ity of tablet 00:00: BEDTIME, [place] STOP Medical TAKING Branch ATORVASTAT IN rosuvastati 0 Yes [id number] TAKE 1 [facility] n 20 mg 8-21 TABLET AT ity of tablet 00:00: BEDTIME, [place] [address] STOP Medical TAKING Branch ATORVASTAT IN rosuvastati 0 Yes [id number] TAKE 1 [facility] n 20 mg 8-21 TABLET AT ity of tablet 00:00: BEDTIME, [place] [address] STOP Medical TAKING Branch ATORVASTAT IN rosuvastati 0 Yes [id number] TAKE 1 [facility] n 20 mg 8-21 TABLET AT ity of tablet 00:00: BEDTIME, [place] STOP Medical TAKING Branch ATORVASTAT IN rosuvastati Yes [id number] TAKE 1 [facility] n 20 mg 8-21 TABLET AT ity of tablet 00:00: BEDTIME, [place] STOP Medical TAKING Branch ATORVASTAT IN rosuvastati Yes [id number] TAKE 1 [facility] n 20 mg 8-21 TABLET AT ity of tablet 00:00: BEDTIME, [place] STOP Medical TAKING Branch ATORVASTAT IN rosuvastati Yes [id number] TAKE 1 [facility] n 20 mg 8-21 TABLET AT ity of tablet 00:00: BEDTIME, [place] STOP Medical TAKING Branch ATORVASTAT IN rosuvastati Yes [id number] TAKE 1 [facility] n 20 mg 8-21 TABLET AT ity of tablet 00:00: BEDTIME, [place] STOP Medical TAKING Branch ATORVASTAT IN rosuvastati Yes [id number] TAKE 1 [facility] n 20 mg 8-21 TABLET AT ity of tablet 00:00: BEDTIME, [place] [address] STOP Medical TAKING Branch ATORVASTAT IN rosuvastati Yes [id number] TAKE 1 [facility] n 20 mg 8-21 TABLET AT ity of tablet 00:00: BEDTIME, [place] [address] STOP Medical TAKING Branch ATORVASTAT IN rosuvastati Yes [id number] TAKE 1 [facility] n 20 mg 8-21 TABLET AT ity of tablet 00:00: BEDTIME, [place] [address] STOP Medical TAKING Branch ATORVASTAT IN rosuvastati Yes [id number] TAKE 1 [facility] n 20 mg 8-21 TABLET AT ity of tablet 00:00: BEDTIME, [place] STOP Medical TAKING Branch ATORVASTAT IN rosuvastati Yes [id number] TAKE 1 [facility] n 20 mg 8-21 TABLET AT ity of tablet 00:00: BEDTIME, [place] [address] STOP Medical TAKING Branch ATORVASTAT IN rosuvastati Yes [id number] TAKE 1 [facility] n 20 mg 8-21 TABLET AT ity of tablet 00:00: BEDTIME, [place] [address] STOP Medical TAKING Branch ATORVASTAT IN rosuvastati Yes [id number] TAKE 1 [facility] n 20 mg 8-21 TABLET AT ity of tablet 00:00: BEDTIME, [place] STOP Medical TAKING Branch ATORVASTAT IN rosuvastati 0 Yes [id number] TAKE 1 [facility] n 20 mg 8-21 TABLET AT ity of tablet 00:00: BEDTIME, [place] STOP Medical TAKING Branch ATORVASTAT IN rosuvastati 0 Yes [id number] TAKE 1 [facility] n 20 mg 8-21 TABLET AT ity of tablet 00:00: BEDTIME, [place] STOP Medical TAKING Branch ATORVASTAT IN rosuvastati Yes [id number] TAKE 1 [facility] n 20 mg 8-21 TABLET AT ity of tablet 00:00: BEDTIME, [place] STOP Medical TAKING Branch ATORVASTAT IN rosuvastati Yes [id number] TAKE 1 [facility] n 20 mg 8-21 TABLET AT ity of tablet 00:00: BEDTIME, [place] STOP Medical TAKING Branch ATORVASTAT IN rosuvastati Yes [id number] TAKE 1 [facility] n 20 mg 8-21 TABLET AT ity of tablet 00:00: BEDTIME, [place] STOP Medical TAKING Branch ATORVASTAT IN rosuvastati 0 Yes [id number] TAKE 1 [facility] n 20 mg 8-21 TABLET AT ity of tablet 00:00: BEDTIME, [place] [address] STOP Medical TAKING Branch ATORVASTAT IN rosuvastati Yes [id number] TAKE 1 [facility] n 20 mg 8-21 TABLET AT ity of tablet 00:00: BEDTIME, [place] [address] STOP Medical TAKING Branch ATORVASTAT IN rosuvastati 0 Yes [id number] TAKE 1 [facility] n 20 mg 8-21 TABLET AT ity of tablet 00:00: BEDTIME, [place] STOP Medical TAKING Branch ATORVASTAT IN rosuvastati 0 Yes [id number] TAKE 1 [facility] n 20 mg 8-21 TABLET AT ity of tablet 00:00: BEDTIME, [place] [address] STOP Medical TAKING Branch ATORVASTAT IN rosuvastati 0 Yes [id number] TAKE 1 [facility] n 20 mg 8-21 TABLET AT ity of tablet 00:00: BEDTIME, [place] [address] STOP Medical TAKING Branch ATORVASTAT IN rosuvastati Yes [id number] TAKE 1 [facility] n 20 mg 8-21 TABLET AT ity of tablet 00:00: BEDTIME, [place] STOP Medical TAKING Branch ATORVASTAT IN rosuvastati Yes [id number] TAKE 1 [facility] n 20 mg 8-21 TABLET AT ity of tablet 00:00: BEDTIME, [place] STOP Medical TAKING Branch ATORVASTAT IN rosuvastati 0 Yes [id number] TAKE 1 [facility] n 20 mg 8-21 TABLET AT ity of tablet 00:00: BEDTIME, [place] STOP Medical TAKING Branch ATORVASTAT IN rosuvastati Yes [id number] TAKE 1 [facility] n 20 mg 8-21 TABLET AT ity of tablet 00:00: BEDTIME, [place] STOP Medical TAKING Branch ATORVASTAT IN rosuvastati Yes [id number] TAKE 1 [facility] n 20 mg 8-21 TABLET AT ity of tablet 00:00: BEDTIME, [place] STOP Medical TAKING Branch ATORVASTAT IN rosuvastati Yes [id number] TAKE 1 [facility] n 20 mg 8-21 TABLET AT ity of tablet 00:00: BEDTIME, [place] [address] STOP Medical TAKING Branch ATORVASTAT IN rosuvastati Yes [id number] TAKE 1 [facility] n 20 mg 8-21 TABLET AT ity of tablet 00:00: BEDTIME, [place] STOP Medical TAKING Branch ATORVASTAT IN rosuvastati 0 Yes [id number] TAKE 1 [facility] n 20 mg 8-21 TABLET AT ity of tablet 00:00: BEDTIME, [place] STOP Medical TAKING Branch ATORVASTAT IN rosuvastati 0 Yes [id number] TAKE 1 [facility] n 20 mg 8-21 TABLET AT ity of tablet 00:00: BEDTIME, [place] STOP Medical TAKING Branch ATORVASTAT IN rosuvastati 0 Yes [id number] TAKE 1 [facility] n 20 mg 8-21 TABLET AT ity of tablet 00:00: BEDTIME, [place] STOP Medical TAKING Branch ATORVASTAT IN rosuvastati 0 Yes [id number] TAKE 1 [facility] n 20 mg 8-21 TABLET AT ity of tablet 00:00: BEDTIME, [place] [address] STOP Medical TAKING Branch ATORVASTAT IN rosuvastati 0 Yes [id number] TAKE 1 [facility] n 20 mg 8-21 TABLET AT ity of tablet 00:00: BEDTIME, [place] STOP Medical TAKING Branch ATORVASTAT IN rosuvastati Yes [id number] TAKE 1 [facility] n 20 mg 8-21 TABLET AT ity of tablet 00:00: BEDTIME, [place] 00 STOP Medical TAKING Branch ATORVASTAT IN rosuvastati 2022- No [id number] TAKE 1 [facility] n 20 mg 8-21 -03 TABLET AT ity of tablet 00:00: 00:00 BEDTIME, [place] 00 :00 STOP Medical TAKING Branch ATORVASTAT IN fluticasone Yes [id number] 1{spray Use 1 [facility] propionate 8-19 } [place] in ity o f 50 00:00: each [place] mcg/actuati 00 nostril in Me dical on nasal the Branch spray morning. Use 2 spray(s) in each nostril once daily fluticasone Yes [id number] 1{spray Use 1 [facility] propionate 8-19 } [place] in ity o f 50 00:00: each [place] mcg/actuati 00 nostril in Me dical on nasal the Branch spray morning. Use 2 spray(s) in each nostril once daily fluticasone Yes [id number] 1{spray Use 1 [facility] propionate 8-19 } [place] in ity o f 50 00:00: each [place] mcg/actuati 00 nostril in Me dical on nasal the Branch spray morning. Use 2 spray(s) in each nostril once daily fluticasone Yes [id number] 1{spray Use 1 [facility] propionate 8-19 } [place] in ity o f 50 00:00: each [place] mcg/actuati 00 nostril in Me dical on nasal the Branch spray morning. Use 2 spray(s) in each nostril once daily fluticasone Yes [id number] 1{spray Use 1 [facility] propionate 8-19 } [place] in ity o f 50 00:00: each [place] mcg/actuati 00 nostril in Me dical on nasal the Branch spray morning. Use 2 spray(s) in each nostril once daily fluticasone Yes [id number] 1{spray Use 1 [facility] propionate 8-19 } [place] in ity o f 50 00:00: each [place] mcg/actuati 00 nostril in Me dical on nasal the Branch spray morning. Use 2 spray(s) in each nostril once daily fluticasone Yes [id number] 1{spray Use 1 [facility] propionate 8-19 } [place] in ity o f 50 00:00: each [place] mcg/actuati 00 nostril in Me dical on nasal the Branch spray morning. Use 2 spray(s) in each nostril once daily fluticasone Yes [id number] 1{spray Use 1 [facility] propionate 8-19 } [place] in ity o f 50 00:00: each [place] mcg/actuati 00 nostril in Me dical on nasal the Branch spray morning. Use 2 spray(s) in each nostril once daily fluticasone 2021- No [id number] 1{spray Use 1 [facility] propionate 8-19 10-06 } [place] in ity of 50 00:00: 00:00 each [place] mcg/actuati 00 :00 nostril in Me dical on nasal the Branch spray morning. Use 2 spray(s) in each nostril once daily clotrimazol 2021- No [id number] 1{appli Insert 1 [facility] e 1 % 11-28 [id number] cator} Applicator ity of vaginal 00:00: 04:59 into [place] cream 00 :00 vagina at [facility] for 7 days. clotrimazol 2021- No [id number] 1{appli Insert 1 [facility] e 1 % 11-28 [id number] cator} Applicator ity of vaginal 00:00: 04:59 into [place] cream 00 :00 vagina at [facility] for 7 days. clotrimazol 2021- No [id number] 1{appli Insert 1 [facility] e 1 % 11-28 [id number] cator} Applicator ity of vaginal 00:00: 04:59 into [place] cream 00 :00 vagina at [facility] for 7 days. clotrimazol 2021- No [id number] 1{appli Insert 1 [facility] e 1 % 11-28 [id number] cator} Applicator ity of vaginal 00:00: 04:59 into [place] cream 00 :00 vagina at [facility] for 7 days. clotrimazol 2021- No [id number] 1{appli Insert 1 [facility] e 1 % 817 12-06 081217 cator} Applicator ity of vaginal 00:00: 04:59 into [place] cream 00 :00 vagina at [facility] for 7 days. GLIPIZIDE Yes [id number] 10mg TAKE 1 Un wendy XL 10 mg 24 8-12 TABLET BY ity of hr tablet 00:00: MOUTH [place] 00 DAILY WITH Medical BREAKFAST. Branch STOP GLIMEPIRID E. METFORMIN Yes [id number] TAKE 2 Un wendy ER 500 mg 8-12 TABLETS ity of 24 hr 00:00: TWICE [place] tablet 00 DAILY WITH Medical MEALS Branch GLIPIZIDE Yes [id number] 10mg TAKE 1 Un [place]end[facility] XL 10 mg 24 8-12 TABLET BY ity of hr tablet 00:00: MOUTH [place] 00 DAILY WITH Medical BREAKFAST. Branch STOP GLIMEPIRID E. METFORMIN Yes [id number] TAKE 2 Un wendy ER 500 mg 8-12 TABLETS ity of 24 hr 00:00: TWICE [place] tablet 00 DAILY WITH Medical MEALS Branch GLIPIZIDE 0 Yes [id number] 10mg TAKE 1 Un wendy XL 10 mg 24 8-12 TABLET BY ity of hr tablet 00:00: MOUTH [place] 00 DAILY WITH Medical BREAKFAST. Branch STOP GLIMEPIRID E. METFORMIN 0 Yes [id number] TAKE 2 Un wendy ER 500 mg 8-12 TABLETS ity of 24 hr 00:00: TWICE [place] tablet 00 DAILY WITH Medical MEALS Branch GLIPIZIDE 0 Yes [id number] 10mg TAKE 1 Un [facility]end[facility] XL 10 mg 24 8-12 TABLET BY ity of hr tablet 00:00: MOUTH [place] 00 DAILY WITH Medical BREAKFAST. Branch STOP GLIMEPIRID E. METFORMIN Yes [id number] TAKE 2 Un wendy ER 500 mg 8-12 TABLETS ity of 24 hr 00:00: TWICE [place] tablet 00 DAILY WITH Medical MEALS Branch GLIPIZIDE Yes [id number] 10mg TAKE 1 Un [place]end[facility] XL 10 mg 24 8-12 TABLET BY ity of hr tablet 00:00: MOUTH [place] 00 DAILY WITH Medical BREAKFAST. Branch STOP GLIMEPIRID E. METFORMIN 2021-0 Yes [id number] TAKE 2 Un wendy ER 500 mg 8-12 TABLETS ity of 24 hr 00:00: TWICE [place] tablet 00 DAILY WITH Medical MEALS Branch GLIPIZIDE 2021-0 Yes [id number] 10mg TAKE 1 Un [place]end[place] XL 10 mg 24 8-12 TABLET BY ity of hr tablet 00:00: MOUTH [place] 00 DAILY WITH Medical BREAKFAST. Branch STOP GLIMEPIRID E. METFORMIN 2021-0 Yes [id number] TAKE 2 Un wendy ER 500 mg 8-12 TABLETS ity of 24 hr 00:00: TWICE [place] tablet 00 DAILY WITH Medical MEALS Branch GLIPIZIDE 2021-0 Yes [id number] 10mg TAKE 1 Un [facility]end[facility] XL 10 mg 24 8-12 TABLET BY ity of hr tablet 00:00: MOUTH [place] 00 DAILY WITH Medical BREAKFAST. Branch STOP GLIMEPIRID E. METFORMIN 2021-0 Yes [id number] TAKE 2 Un wendy ER 500 mg 8-12 TABLETS ity of 24 hr 00:00: TWICE [place] tablet 00 DAILY WITH Medical MEALS Branch GLIPIZIDE 2021-0 Yes [id number] 10mg TAKE 1 Un [facility]end[facility] XL 10 mg 24 8-12 TABLET BY ity of hr tablet 00:00: MOUTH [place] 00 DAILY WITH Medical BREAKFAST. Branch STOP GLIMEPIRID E. METFORMIN 2021-0 Yes [id number] TAKE 2 Un wendy ER 500 mg 8-12 TABLETS ity of 24 hr 00:00: TWICE [place] tablet 00 DAILY WITH Medical MEALS Branch GLIPIZIDE 2021-0 Yes [id number] 10mg TAKE 1 Un [place] XL 10 mg 24 8-12 TABLET BY ity of hr tablet 00:00: MOUTH [place] 00 DAILY WITH Medical BREAKFAST. Branch STOP GLIMEPIRID E. METFORMIN 2021-0 Yes [id number] TAKE 2 Un wendy ER 500 mg 8-12 TABLETS ity of 24 hr 00:00: TWICE [place] tablet 00 DAILY WITH Medical MEALS Branch GLIPIZIDE 2021-0 Yes [id number] 10mg TAKE 1 Un [place] XL 10 mg 24 8-12 TABLET BY ity of hr tablet 00:00: MOUTH [place] 00 DAILY WITH Medical BREAKFAST. Branch STOP GLIMEPIRID E. METFORMIN 2021-0 Yes [id number] TAKE 2 Un wendy ER 500 mg 8-12 TABLETS ity of 24 hr 00:00: TWICE [place] tablet 00 DAILY WITH Medical MEALS Branch GLIPIZIDE 2021-0 Yes [id number] 10mg TAKE 1 Un [place] XL 10 mg 24 8-12 TABLET BY ity of hr tablet 00:00: MOUTH [place] 00 DAILY WITH Medical BREAKFAST. Branch STOP GLIMEPIRID E. METFORMIN 2021-0 Yes [id number] TAKE 2 Un wendy ER 500 mg 8-12 TABLETS ity of 24 hr 00:00: TWICE [place] tablet 00 DAILY WITH Medical MEALS Branch GLIPIZIDE 2021-0 Yes [id number] 10mg TAKE 1 Un [place] XL 10 mg 24 8-12 TABLET BY ity of hr tablet 00:00: MOUTH [place] 00 DAILY WITH Medical BREAKFAST. Branch STOP GLIMEPIRID E. METFORMIN 2021-0 Yes [id number] TAKE 2 Un wendy ER 500 mg 8-12 TABLETS ity of 24 hr 00:00: TWICE [place] tablet 00 DAILY WITH Medical MEALS Branch GLIPIZIDE 2021-0 Yes [id number] 10mg TAKE 1 Un [place] XL 10 mg 24 8-12 TABLET BY ity of hr tablet 00:00: MOUTH [place] 00 DAILY WITH Medical BREAKFAST. Branch STOP GLIMEPIRID E. METFORMIN 2021-0 Yes [id number] TAKE 2 Un wendy ER 500 mg 8-12 TABLETS ity of 24 hr 00:00: TWICE [place] tablet 00 DAILY WITH Medical MEALS Branch GLIPIZIDE 2021-0 Yes [id number] 10mg TAKE 1 Un [place] XL 10 mg 24 8-12 TABLET BY ity of hr tablet 00:00: MOUTH [place] 00 DAILY WITH Medical BREAKFAST. Branch STOP GLIMEPIRID E. METFORMIN 2021-0 Yes [id number] TAKE 2 Un [place]end[place] ER 500 mg 8-12 TABLETS ity of 24 hr 00:00: TWICE [place] tablet 00 DAILY WITH Medical MEALS Branch GLIPIZIDE 2021-0 Yes [id number] 10mg TAKE 1 Un [place] XL 10 mg 24 8-12 TABLET BY ity of hr tablet 00:00: MOUTH [place] 00 DAILY WITH Medical BREAKFAST. Branch STOP GLIMEPIRID E. METFORMIN 2021-0 Yes [id number] TAKE 2 Un [place] ER 500 mg 8-12 TABLETS ity of 24 hr 00:00: TWICE [place] tablet 00 DAILY WITH Medical MEALS Branch GLIPIZIDE 2021-0 Yes [id number] 10mg TAKE 1 Un [place] XL 10 mg 24 8-12 TABLET BY ity of hr tablet 00:00: MOUTH [place] 00 DAILY WITH Medical BREAKFAST. Branch STOP GLIMEPIRID E. METFORMIN 2021-0 Yes [id number] TAKE 2 Un wendy ER 500 mg 8-12 TABLETS ity of 24 hr 00:00: TWICE [place] tablet 00 DAILY WITH Medical MEALS Branch GLIPIZIDE 2021- Yes [id number] 10mg TAKE 1 Un [place] XL 10 mg 24 8-12 TABLET BY ity of hr tablet 00:00: MOUTH [place] 00 DAILY WITH Medical BREAKFAST. Branch STOP GLIMEPIRID E. METFORMIN 0 Yes [id number] TAKE 2 Un wendy ER 500 mg 8-12 TABLETS ity of 24 hr 00:00: TWICE [place] tablet 00 DAILY WITH Medical MEALS Branch GLIPIZIDE Yes [id number] 10mg TAKE 1 Un [place] XL 10 mg 24 8-12 TABLET BY ity of hr tablet 00:00: MOUTH [place] 00 DAILY WITH Medical BREAKFAST. Branch STOP GLIMEPIRID E. METFORMIN 0 Yes [id number] TAKE 2 Un wend[facility] ER 500 mg 8-12 TABLETS ity of 24 hr 00:00: TWICE [place] tablet 00 DAILY WITH Medical MEALS Branch GLIPIZIDE Yes [id number] 10mg TAKE 1 Un [place] XL 10 mg 24 8-12 TABLET BY ity of hr tablet 00:00: MOUTH [place] 00 DAILY WITH Medical BREAKFAST. Branch STOP GLIMEPIRID E. METFORMIN 0 Yes [id number] TAKE 2 Un [place]end[place] ER 500 mg 8-12 TABLETS ity of 24 hr 00:00: TWICE [place] tablet 00 DAILY WITH Medical MEALS Branch GLIPIZIDE 2021-0 Yes [id number] 10mg TAKE 1 Un [place] XL 10 mg 24 8-12 TABLET BY ity of hr tablet 00:00: MOUTH [place] 00 DAILY WITH Medical BREAKFAST. Branch STOP GLIMEPIRID E. METFORMIN 2021- Yes [id number] TAKE 2 Un wendy ER 500 mg 8-12 TABLETS ity of 24 hr 00:00: TWICE [place] tablet 00 DAILY WITH Medical MEALS Branch GLIPIZIDE 2021- Yes [id number] 10mg TAKE 1 Un [facility]end[facility] XL 10 mg 24 8-12 TABLET BY ity of hr tablet 00:00: MOUTH [place] 00 DAILY WITH Medical BREAKFAST. Branch STOP GLIMEPIRID E. METFORMIN 2022-0 Yes [id number] TAKE 2 Un wendy ER 500 mg 8-12 TABLETS ity of 24 hr 00:00: TWICE [place] tablet 00 DAILY WITH Medical MEALS Branch GLIPIZIDE 2021-0 Yes [id number] 10mg TAKE 1 Un [place] XL 10 mg 24 8-12 TABLET BY ity of hr tablet 00:00: MOUTH [place] 00 DAILY WITH Medical BREAKFAST. Branch STOP GLIMEPIRID E. METFORMIN 2021-0 Yes [id number] TAKE 2 Un wendy ER 500 mg 8-12 TABLETS ity of 24 hr 00:00: TWICE [place] tablet 00 DAILY WITH Medical MEALS Branch GLIPIZIDE Yes [id number] 10mg TAKE 1 Un [facility] XL 10 mg 24 8-12 TABLET BY ity of hr tablet 00:00: MOUTH [place] 00 DAILY WITH Medical BREAKFAST. Branch STOP GLIMEPIRID E. METFORMIN 2021-0 Yes [id number] TAKE 2 Un wendy ER 500 mg 8-12 TABLETS ity of 24 hr 00:00: TWICE [place] tablet 00 DAILY WITH Medical MEALS Branch GLIPIZIDE 2021- Yes [id number] 10mg TAKE 1 Un [facility] XL 10 mg 24 8-12 TABLET BY ity of hr tablet 00:00: MOUTH [place] 00 DAILY WITH Medical BREAKFAST. Branch STOP GLIMEPIRID E. METFORMIN 2021-0 Yes [id number] TAKE 2 Un wendy ER 500 mg 8-12 TABLETS ity of 24 hr 00:00: TWICE [place] tablet 00 DAILY WITH Medical MEALS Branch GLIPIZIDE 2021-0 Yes [id number] 10mg TAKE 1 Un [place] XL 10 mg 24 8-12 TABLET BY ity of hr tablet 00:00: MOUTH [place] 00 DAILY WITH Medical BREAKFAST. Branch STOP GLIMEPIRID E. METFORMIN 2021-0 Yes [id number] TAKE 2 Un wend[facility] ER 500 mg 8-12 TABLETS ity of 24 hr 00:00: TWICE [place] tablet 00 DAILY WITH Medical MEALS Branch GLIPIZIDE 2021-0 Yes [id number] 10mg TAKE 1 Un [facility] XL 10 mg 24 8-12 TABLET BY ity of hr tablet 00:00: MOUTH [place] 00 DAILY WITH Medical BREAKFAST. Branch STOP GLIMEPIRID E. METFORMIN 2021-0 Yes [id number] TAKE 2 Un wend[facility] ER 500 mg 8-12 TABLETS ity of 24 hr 00:00: TWICE [place] tablet 00 DAILY WITH Medical MEALS Branch GLIPIZIDE 2021-0 Yes [id number] 10mg TAKE 1 Un [place] XL 10 mg 24 8-12 TABLET BY ity of hr tablet 00:00: MOUTH [place] 00 DAILY WITH Medical BREAKFAST. Branch STOP GLIMEPIRID E. METFORMIN Yes [id number] TAKE 2 Un wendy ER 500 mg 8-12 TABLETS ity of 24 hr 00:00: TWICE [place] tablet 00 DAILY WITH Medical MEALS Branch GLIPIZIDE Yes [id number] 10mg TAKE 1 Un [facility] XL 10 mg 24 8-12 TABLET BY ity of hr tablet 00:00: MOUTH [place] 00 DAILY WITH Medical BREAKFAST. Branch STOP GLIMEPIRID E. METFORMIN 0 Yes [id number] TAKE 2 Un wendy ER 500 mg 8-12 TABLETS ity of 24 hr 00:00: TWICE [place] tablet 00 DAILY WITH Medical MEALS Branch GLIPIZIDE Yes [id number] 10mg TAKE 1 Un [place] XL 10 mg 24 8-12 TABLET BY ity of hr tablet 00:00: MOUTH [place] 00 DAILY WITH Medical BREAKFAST. Branch STOP GLIMEPIRID E. METFORMIN Yes [id number] TAKE 2 Un [place] ER 500 mg 8-12 TABLETS ity of 24 hr 00:00: TWICE [place] tablet 00 DAILY WITH Medical MEALS Branch GLIPIZIDE Yes [id number] 10mg TAKE 1 Un [place] XL 10 mg 24 8-12 TABLET BY ity of hr tablet 00:00: MOUTH [place] 00 DAILY WITH Medical BREAKFAST. Branch STOP GLIMEPIRID E. METFORMIN 2021-0 Yes [id number] TAKE 2 [facility] ER 500 mg 8-12 TABLETS [facility] of 24 hr 00:00: TWICE [place] tablet 00 DAILY WITH Medical MEALS Branch GLIPIZIDE 2021-0 Yes [id number] 10mg TAKE 1 [facility] XL 10 mg 24 8-12 TABLET BY [facility] of hr tablet 00:00: MOUTH [place] 00 DAILY WITH Medical BREAKFAST. Branch STOP GLIMEPIRID E. METFORMIN 2021-0 Yes [id number] TAKE 2 [facility] ER 500 mg 8-12 TABLETS [facility]y of 24 hr 00:00: TWICE [place] tablet 00 DAILY WITH Medical MEALS Branch GLIPIZIDE 2021-0 Yes [id number] 10mg TAKE 1 [facility] [place] XL 10 mg 24 8-12 TABLET BY [facility] of hr tablet 00:00: MOUTH [place] 00 DAILY WITH Medical BREAKFAST. Branch STOP GLIMEPIRID E. METFORMIN 2021-0 Yes [id number] TAKE 2 [facility] ER 500 mg 8-12 TABLETS ity of 24 hr 00:00: TWICE [place] tablet 00 DAILY WITH Medical MEALS Branch GLIPIZIDE 2021-0 Yes [id number] 10mg TAKE 1 [facility] [place] XL 10 mg 24 8-12 TABLET BY [facility] of hr tablet 00:00: MOUTH [place] 00 DAILY WITH Medical BREAKFAST. Branch STOP GLIMEPIRID E. METFORMIN 2021-0 Yes [id number] TAKE 2 [facility] ER 500 mg 8-12 TABLETS [facility]y of 24 hr 00:00: TWICE [place] tablet 00 DAILY WITH Medical MEALS Branch GLIPIZIDE Yes [id number] 10mg TAKE 1 [facility] [place] XL 10 mg 24 8-12 TABLET BY [facility] of hr tablet 00:00: MOUTH [place] 00 DAILY WITH Medical BREAKFAST. Branch STOP GLIMEPIRID E. METFORMIN 0 Yes [id number] TAKE 2 [facility] ER 500 mg 8-12 TABLETS [facility] of 24 hr 00:00: TWICE [place] tablet 00 DAILY WITH Medical MEALS Branch GLIPIZIDE Yes [id number] 10mg TAKE 1 [facility] [place] XL 10 mg 24 8-12 TABLET BY [facility] of hr tablet 00:00: MOUTH [place] 00 DAILY WITH Medical BREAKFAST. Branch STOP GLIMEPIRID E. METFORMIN 2021-0 Yes [id number] TAKE 2 [facility] ER 500 mg 8-12 TABLETS ity of 24 hr 00:00: TWICE [place] tablet 00 DAILY WITH Medical MEALS Branch GLIPIZIDE 2021-0 Yes [id number] 10mg TAKE 1 [facility] [place] XL 10 mg 24 8-12 TABLET BY [facility] of hr tablet 00:00: MOUTH [place] 00 DAILY WITH Medical BREAKFAST. Branch STOP GLIMEPIRID E. METFORMIN 2021-0 Yes [id number] TAKE 2 [facility] ER 500 mg 8-12 TABLETS ity of 24 hr 00:00: TWICE [place] tablet 00 DAILY WITH Medical MEALS Branch GLIPIZIDE 2021-0 Yes [id number] 10mg TAKE 1 [facility] [place] XL 10 mg 24 8-12 TABLET BY [facility] of hr tablet 00:00: MOUTH [place] 00 DAILY WITH Medical BREAKFAST. Branch STOP GLIMEPIRID E. METFORMIN 2021-0 Yes [id number] TAKE 2 [facility] ER 500 mg 8-12 TABLETS ity of 24 hr 00:00: TWICE [place] tablet 00 DAILY WITH Medical MEALS Branch GLIPIZIDE 2021-0 Yes [id number] 10mg TAKE 1 [facility] XL 10 mg 24 8-12 TABLET BY [facility]y of hr tablet 00:00: MOUTH [place] 00 DAILY WITH Medical BREAKFAST. Branch STOP GLIMEPIRID E. METFORMIN 0 Yes [id number] TAKE 2 [facility] ER 500 mg 8-12 TABLETS ity of 24 hr 00:00: TWICE [place] tablet 00 DAILY WITH Medical MEALS Branch GLIPIZIDE Yes [id number] 10mg TAKE 1 [facility] [place] XL 10 mg 24 8-12 TABLET BY [facility] of hr tablet 00:00: MOUTH [place] 00 DAILY WITH Medical BREAKFAST. Branch STOP GLIMEPIRID E. METFORMIN Yes [id number] TAKE 2 [facility] ER 500 mg 8-12 TABLETS ity of 24 hr 00:00: TWICE [place] tablet 00 DAILY WITH Medical MEALS Branch GLIPIZIDE Yes [id number] 10mg TAKE 1 [facility] XL 10 mg 24 8-12 TABLET BY [facility]y of hr tablet 00:00: MOUTH [place] 00 DAILY WITH Medical BREAKFAST. Branch STOP GLIMEPIRID E. METFORMIN Yes [id number] TAKE 2 [facility] ER 500 mg 8-12 TABLETS ity of 24 hr 00:00: TWICE [place] tablet 00 DAILY WITH Medical MEALS Branch GLIPIZIDE 2021- Yes [id number] 10mg TAKE 1 [facility] XL 10 mg 24 8-12 TABLET BY [facility]y of hr tablet 00:00: MOUTH [place] 00 DAILY WITH Medical BREAKFAST. Branch STOP GLIMEPIRID E. METFORMIN 0 Yes [id number] TAKE 2 [facility] ER 500 mg 8-12 TABLETS ity of 24 hr 00:00: TWICE [place] tablet 00 DAILY WITH Medical MEALS Branch GLIPIZIDE 2021- Yes [id number] 10mg TAKE 1 [facility] XL 10 mg 24 8-12 TABLET BY [facility]y of hr tablet 00:00: MOUTH [place] 00 DAILY WITH Medical BREAKFAST. Branch STOP GLIMEPIRID E. METFORMIN Yes [id number] TAKE 2 [facility] ER 500 mg 8-12 TABLETS ity of 24 hr 00:00: TWICE [place] tablet 00 DAILY WITH Medical MEALS Branch GLIPIZIDE 2021- Yes [id number] 10mg TAKE 1 [facility] XL 10 mg 24 8-12 TABLET BY [facility] of hr tablet 00:00: MOUTH [place] 00 DAILY WITH Medical BREAKFAST. Branch STOP GLIMEPIRID E. METFORMIN 2021-0 Yes [id number] TAKE 2 [facility] ER 500 mg 8-12 TABLETS ity of 24 hr 00:00: TWICE [place] tablet 00 DAILY WITH Medical MEALS Branch GLIPIZIDE 2021-0 Yes [id number] 10mg TAKE 1 [facility] XL 10 mg 24 8-12 TABLET BY [facility]y of hr tablet 00:00: MOUTH [place] 00 DAILY WITH Medical BREAKFAST. Branch STOP GLIMEPIRID E. METFORMIN 2021-0 Yes [id number] TAKE 2 [facility] ER 500 mg 8-12 TABLETS ity of 24 hr 00:00: TWICE [place] tablet 00 DAILY WITH Medical MEALS Branch GLIPIZIDE 2021-0 Yes [id number] 10mg TAKE 1 [facility] XL 10 mg 24 8-12 TABLET BY [facility]y of hr tablet 00:00: MOUTH [place] 00 DAILY WITH Medical BREAKFAST. Branch STOP GLIMEPIRID E. METFORMIN 2021-0 Yes [id number] TAKE 2 [facility] ER 500 mg 8-12 TABLETS ity of 24 hr 00:00: TWICE [place] tablet 00 DAILY WITH Medical MEALS Branch GLIPIZIDE 2021-0 Yes [id number] 10mg TAKE 1 [facility] XL 10 mg 24 8-12 TABLET BY [facility]y of hr tablet 00:00: MOUTH [place] 00 DAILY WITH Medical BREAKFAST. Branch STOP GLIMEPIRID E. METFORMIN 2021-0 Yes [id number] TAKE 2 [facility] ER 500 mg 8-12 TABLETS ity of 24 hr 00:00: TWICE [place] tablet 00 DAILY WITH Medical MEALS Branch GLIPIZIDE 2021-0 Yes [id number] 10mg TAKE 1 [facility] XL 10 mg 24 8-12 TABLET BY [facility]y of hr tablet 00:00: MOUTH [place] 00 DAILY WITH Medical BREAKFAST. Branch STOP GLIMEPIRID E. METFORMIN 2021-0 Yes [id number] TAKE 2 [facility] ER 500 mg 8-12 TABLETS ity of 24 hr 00:00: TWICE [place] tablet 00 DAILY WITH Medical MEALS Branch GLIPIZIDE 2021-0 Yes [id number] 10mg TAKE 1 [facility] XL 10 mg 24 8-12 TABLET BY [facility]y of hr tablet 00:00: MOUTH [place] 00 DAILY WITH Medical BREAKFAST. Branch STOP GLIMEPIRID E. METFORMIN 2021-0 Yes [id number] TAKE 2 [facility] ER 500 mg 8-12 TABLETS ity of 24 hr 00:00: TWICE [place] tablet 00 DAILY WITH Medical MEALS Branch GLIPIZIDE 2021-0 Yes [id number] 10mg TAKE 1 [facility] XL 10 mg 24 8-12 TABLET BY [facility]y of hr tablet 00:00: MOUTH [place] 00 DAILY WITH Medical BREAKFAST. Branch STOP GLIMEPIRID E. METFORMIN 2021-0 Yes [id number] TAKE 2 [facility] ER 500 mg 8-12 TABLETS ity of 24 hr 00:00: TWICE [place] tablet 00 DAILY WITH Medical MEALS Branch GLIPIZIDE 2021-0 Yes [id number] 10mg TAKE 1 [facility] XL 10 mg 24 8-12 TABLET BY [facility]y of hr tablet 00:00: MOUTH [place] 00 DAILY WITH Medical BREAKFAST. Branch STOP GLIMEPIRID E. METFORMIN 2021-0 Yes [id number] TAKE 2 [facility] ER 500 mg 8-12 TABLETS ity of 24 hr 00:00: TWICE [place] tablet 00 DAILY WITH Medical MEALS Branch GLIPIZIDE 2021-0 Yes [id number] 10mg TAKE 1 [facility] XL 10 mg 24 8-12 TABLET BY [facility]y of hr tablet 00:00: MOUTH [place] 00 DAILY WITH Medical BREAKFAST. Branch STOP GLIMEPIRID E. METFORMIN 2021-0 Yes [id number] TAKE 2 [facility] ER 500 mg 8-12 TABLETS ity of 24 hr 00:00: TWICE [place] tablet 00 DAILY WITH Medical MEALS Branch GLIPIZIDE 2021-0 Yes [id number] 10mg TAKE 1 [facility] XL 10 mg 24 8-12 TABLET BY [facility]y of hr tablet 00:00: MOUTH [place] 00 DAILY WITH Medical BREAKFAST. Branch STOP GLIMEPIRID E. METFORMIN 2021-0 Yes [id number] TAKE 2 [facility] ER 500 mg 8-12 TABLETS ity of 24 hr 00:00: TWICE [place] tablet 00 DAILY WITH Medical MEALS Branch GLIPIZIDE 2021-0 Yes [id number] 10mg TAKE 1 [facility] XL 10 mg 24 8-12 TABLET BY [facility]y of hr tablet 00:00: MOUTH [place] 00 DAILY WITH Medical BREAKFAST. Branch STOP GLIMEPIRID E. METFORMIN 2021-0 Yes [id number] TAKE 2 [facility] ER 500 mg 8-12 TABLETS ity of 24 hr 00:00: TWICE [place] tablet 00 DAILY WITH Medical MEALS Branch GLIPIZIDE 2021-0 Yes [id number] 10mg TAKE 1 [facility] XL 10 mg 24 8-12 TABLET BY ity of hr tablet 00:00: MOUTH [place] 00 DAILY WITH Medical BREAKFAST. Branch STOP GLIMEPIRID E. METFORMIN 2021-0 Yes [id number] TAKE 2 [facility] ER 500 mg 8-12 TABLETS ity of 24 hr 00:00: TWICE [place] tablet 00 DAILY WITH Medical MEALS Branch GLIPIZIDE 2021-0 Yes [id number] 10mg TAKE 1 [facility] XL 10 mg 24 8-12 TABLET BY [facility]y of hr tablet 00:00: MOUTH [place] 00 DAILY WITH Medical BREAKFAST. Branch STOP GLIMEPIRID E. GLIPIZIDE 0 Yes [id number] 10mg TAKE 1 [facility] XL 10 mg 24 8-12 TABLET BY [facility]y of hr tablet 00:00: MOUTH [place] 00 DAILY WITH Medical BREAKFAST. Branch STOP GLIMEPIRID E. GLIPIZIDE 0 3- No [id number] 10mg TAKE 1 [facility] XL 10 mg 24 8-12 02-06 TABLET BY it y of hr tablet 00:00: 00:00 MOUTH [place] 00 :00 DAILY WITH Medical BREAKFAST. Branch STOP GLIMEPIRID E. METFORMIN 0 3- No [id number] TAKE 2 [facility] ER 500 mg 8-12 02-03 TABLETS ity of 24 hr 00:00: 00:00 TWICE [place] tablet 00 :00 DAILY WITH Medical MEALS Branch NIFEdipine 2021-0 Yes [id number] 60mg Take 1 [facility] XL 60 mg 24 7-25 tablet by [facility] hr tablet 00:00: [place] 00 the Medical morning. Branch NIFEdipine 2021-0 Yes [id number] 60mg Take 1 [facility] XL 60 mg 24 7-25 tablet by [facility] hr tablet 00:00: [place] 00 the Medical morning. Branch NIFEdipine 2021-0 Yes [id number] 60mg Take 1 [facility] XL 60 mg 24 7-25 tablet by [facility] hr tablet 00:00: [place] 00 the Medical morning. Branch NIFEdipine 2021-0 Yes [id number] 60mg Take 1 [facility] XL 60 mg 24 7-25 tablet by [facility] hr tablet 00:00: [place] 00 the Medical morning. Branch NIFEdipine 2021-0 Yes [id number] 60mg Take 1 [facility] XL 60 mg 24 7-25 tablet by [facility] hr tablet 00:00: [place] 00 the Medical morning. Branch NIFEdipine 2021-0 Yes [id number] 60mg Take 1 [facility] XL 60 mg 24 7-25 tablet by [facility] hr tablet 00:00: [place] 00 the Medical morning. Branch NIFEdipine 2-0 Yes [id number] 60mg Take 1 [facility] XL 60 mg 24 7-25 tablet by [facility] hr tablet 00:00: [place] 00 the Medical morning. Branch NIFEdipine 2-0 Yes [id number] 60mg Take 1 [facility] XL 60 mg 24 7-25 tablet by [facility] hr tablet 00:00: [place] 00 the Medical morning. Branch NIFEdipine 2-0 Yes [id number] 60mg Take 1 [facility] XL 60 mg 24 7-25 tablet by [facility] hr tablet 00:00: [place] 00 the Medical morning. Branch NIFEdipine 2-0 Yes [id number] 60mg Take 1 [facility] XL 60 mg 24 7-25 tablet by [facility] hr tablet 00:00: [place] 00 the Medical morning. Branch NIFEdipine 2021-0 Yes [id number] 60mg Take 1 [facility] XL 60 mg 24 7-25 tablet by [facility] hr tablet 00:00: [place] 00 the Medical morning. Branch NIFEdipine 2021-0 Yes [id number] 60mg Take 1 [facility] XL 60 mg 24 7-25 tablet by [facility] hr tablet 00:00: [place] 00 the Medical morning. Branch NIFEdipine 2-0 Yes [id number] 60mg Take 1 [facility] XL 60 mg 24 7-25 tablet by [facility] hr tablet 00:00: [place] 00 the Medical morning. Branch NIFEdipine 2-0 Yes [id number] 60mg Take 1 [facility] XL 60 mg 24 7-25 tablet by [facility] hr tablet 00:00: [place] 00 the Medical morning. Branch NIFEdipine 2-0 Yes [id number] 60mg Take 1 [facility] XL 60 mg 24 7-25 tablet by [facility] hr tablet 00:00: [place] 00 the Medical morning. Branch NIFEdipine 2022-0 Yes [id number] 60mg Take 1 [facility] XL 60 mg 24 7-25 tablet by [facility] hr tablet 00:00: [place] 00 the Medical morning. Branch NIFEdipine 2021-0 Yes [id number] 60mg Take 1 [facility] XL 60 mg 24 7-25 tablet by [facility] hr tablet 00:00: [place] 00 the Medical morning. Branch NIFEdipine 2021-0 Yes [id number] 60mg Take 1 [facility] XL 60 mg 24 7-25 tablet by [facility] hr tablet 00:00: [place] 00 the Medical morning. Branch NIFEdipine 2021-0 Yes [id number] 60mg Take 1 [facility] XL 60 mg 24 7-25 tablet by [facility] hr tablet 00:00: [place] 00 the Medical morning. Branch NIFEdipine 2021-0 Yes [id number] 60mg Take 1 [facility] XL 60 mg 24 7-25 tablet by [facility] hr tablet 00:00: [place] 00 the Medical morning. Branch NIFEdipine 2021-0 Yes [id number] 60mg Take 1 [facility] XL 60 mg 24 7-25 tablet by [facility] hr tablet 00:00: [place] 00 the Medical morning. Branch NIFEdipine 2021-0 Yes [id number] 60mg Take 1 [facility] XL 60 mg 24 7-25 tablet by [facility] hr tablet 00:00: [place] 00 the Medical morning. Branch NIFEdipine 2021-0 Yes [id number] 60mg Take 1 [facility] XL 60 mg 24 7-25 tablet by [facility] hr tablet 00:00: [place] 00 the Medical morning. Branch NIFEdipine 2021-0 Yes [id number] 60mg Take 1 [facility] XL 60 mg 24 7-25 tablet by [facility] hr tablet 00:00: [place] 00 the Medical morning. Branch NIFEdipine 2021-0 Yes [id number] 60mg Take 1 [facility] XL 60 mg 24 7-25 tablet by [facility] hr tablet 00:00: [place] 00 the Medical morning. Branch NIFEdipine 2-0 Yes [id number] 60mg Take 1 [facility] XL 60 mg 24 7-25 tablet by [facility] hr tablet 00:00: [place] 00 the Medical morning. Branch NIFEdipine 2-0 Yes [id number] 60mg Take 1 [facility] XL 60 mg 24 7-25 tablet by [facility] hr tablet 00:00: [place] 00 the Medical morning. Branch NIFEdipine 2021-0 Yes [id number] 60mg Take 1 [facility] XL 60 mg 24 7-25 tablet by [facility] hr tablet 00:00: [place] 00 the Medical morning. Branch NIFEdipine 2021-0 Yes [id number] 60mg Take 1 [facility] XL 60 mg 24 7-25 tablet by [facility] hr tablet 00:00: [place] 00 the Medical morning. Branch NIFEdipine 2021-0 Yes [id number] 60mg Take 1 [facility] XL 60 mg 24 7-25 tablet by [facility] hr tablet 00:00: [place] 00 the Medical morning. Branch NIFEdipine 2021-0 Yes [id number] 60mg Take 1 [facility] XL 60 mg 24 7-25 tablet by [facility] hr tablet 00:00: [place] 00 the Medical morning. Branch NIFEdipine 2021-0 Yes [id number] 60mg Take 1 [facility] XL 60 mg 24 7-25 tablet by [facility] hr tablet 00:00: [place] 00 the Medical morning. Branch NIFEdipine 2021-0 Yes [id number] 60mg Take 1 [facility] XL 60 mg 24 7-25 tablet by [facility] hr tablet 00:00: [place] 00 the Medical morning. Branch NIFEdipine 2021-0 2021- No [id number] 60mg Take 1 [facility] XL 60 mg 24 7-25 12-09 tablet by it y of hr tablet 00:00: 00:00 mouth in [place] 00 :00 the Medical morning. Branch metoprolol 2021-0 Yes [id number] TAKE 1 [facility] succinate 7-19 TABLET AT ity o f XL 50 mg 24 00:00: BEDTIME [place] tablet 00 (DOSE Medical INCREASE) Branch metoprolol 2021-0 Yes [id number] TAKE 1 [facility] succinate 7-19 TABLET AT ity o f XL 50 mg 24 00:00: BEDTIME [place] tablet 00 (DOSE Medical INCREASE) Branch metoprolol 2021-0 Yes [id number] TAKE 1 [facility] succinate 7-19 TABLET AT ity o f XL 50 mg 24 00:00: BEDTIME [place] tablet 00 (DOSE Medical INCREASE) Branch metoprolol 2021-0 Yes [id number] TAKE 1 [facility] [place] succinate 7-19 TABLET AT ity o f XL 50 mg 24 00:00: BEDTIME [place] tablet 00 (DOSE Medical INCREASE) Branch metoprolol Yes [id number] TAKE 1 [facility] succinate 7-19 TABLET AT ity o f XL 50 mg 24 00:00: BEDTIME [place] tablet 00 (DOSE Medical INCREASE) Branch metoprolol Yes [id number] TAKE 1 [facility] succinate 7-19 TABLET AT ity o f XL 50 mg 24 00:00: BEDTIME [place] tablet 00 (DOSE Medical INCREASE) Branch metoprolol Yes [id number] TAKE 1 [facility] succinate 7-19 TABLET AT ity o f XL 50 mg 24 00:00: BEDTIME [place] tablet 00 (DOSE Medical INCREASE) Branch metoprolol Yes [id number] TAKE 1 [facility] succinate 7-19 TABLET AT ity o f XL 50 mg 24 00:00: BEDTIME [place] tablet 00 (DOSE Medical INCREASE) Branch metoprolol Yes [id number] TAKE 1 [facility] succinate 7-19 TABLET AT ity o f XL 50 mg 24 00:00: BEDTIME [place] tablet 00 (DOSE Medical INCREASE) Branch metoprolol Yes [id number] TAKE 1 [facility] succinate 7-19 TABLET AT ity o f XL 50 mg 24 00:00: BEDTIME [place] tablet 00 (DOSE Medical INCREASE) Branch metoprolol Yes [id number] TAKE 1 [facility] [place] succinate 7-19 TABLET AT ity o f XL 50 mg 24 00:00: BEDTIME [place] tablet 00 (DOSE Medical INCREASE) Branch metoprolol Yes [id number] TAKE 1 [facility] succinate 7-19 TABLET AT ity o f XL 50 mg 24 00:00: BEDTIME [place] tablet 00 (DOSE Medical INCREASE) Branch metoprolol Yes [id number] TAKE 1 [facility] [place] succinate 7-19 TABLET AT ity o f XL 50 mg 24 00:00: BEDTIME [place] tablet 00 (DOSE Medical INCREASE) Branch metoprolol Yes [id number] TAKE 1 [facility] [place] succinate 7-19 TABLET AT ity o f XL 50 mg 24 00:00: BEDTIME [place] tablet 00 (DOSE Medical INCREASE) Branch metoprolol Yes [id number] TAKE 1 [facility] [place] succinate 7-19 TABLET AT ity o f XL 50 mg 24 00:00: BEDTIME [place] tablet 00 (DOSE Medical INCREASE) Branch metoprolol Yes [id number] TAKE 1 [facility] [place] succinate 7-19 TABLET AT ity o f XL 50 mg 24 00:00: BEDTIME [place] tablet 00 (DOSE Medical INCREASE) Branch metoprolol Yes [id number] TAKE 1 [facility] [place] succinate 7-19 TABLET AT ity o f XL 50 mg 24 00:00: BEDTIME [place] tablet 00 (DOSE Medical INCREASE) Branch metoprolol Yes [id number] TAKE 1 [facility] [place] succinate 7-19 TABLET AT ity o f XL 50 mg 24 00:00: BEDTIME [place] tablet 00 (DOSE Medical INCREASE) Branch metoprolol Yes [id number] TAKE 1 [facility] [place] succinate 7-19 TABLET AT ity o f XL 50 mg 24 00:00: BEDTIME [place] tablet 00 (DOSE Medical INCREASE) Branch metoprolol Yes [id number] TAKE 1 [facility] [place] succinate 7-19 TABLET AT ity o f XL 50 mg 24 00:00: BEDTIME [place] tablet 00 (DOSE Medical INCREASE) Branch metoprolol Yes [id number] TAKE 1 [facility] [place] succinate 7-19 TABLET AT ity o f XL 50 mg 24 00:00: BEDTIME [place] tablet 00 (DOSE Medical INCREASE) Branch metoprolol Yes [id number] TAKE 1 [facility] [place] succinate 7-19 TABLET AT ity o f XL 50 mg 24 00:00: BEDTIME [place] tablet 00 (DOSE Medical INCREASE) Branch metoprolol Yes [id number] TAKE 1 [facility] [place] succinate 7-19 TABLET AT ity o f XL 50 mg 24 00:00: BEDTIME [place] tablet 00 (DOSE Medical INCREASE) Branch metoprolol Yes [id number] TAKE 1 [facility] [place] succinate 7-19 TABLET AT ity o f XL 50 mg 24 00:00: BEDTIME [place] tablet 00 (DOSE Medical INCREASE) Branch metoprolol Yes [id number] TAKE 1 [facility] [place] succinate 7-19 TABLET AT ity o f XL 50 mg 24 00:00: BEDTIME [place] tablet 00 (DOSE Medical INCREASE) Branch metoprolol Yes [id number] TAKE 1 [facility] [place] succinate 7-19 TABLET AT ity o f XL 50 mg 24 00:00: BEDTIME [place] tablet 00 (DOSE Medical INCREASE) Branch metoprolol Yes [id number] TAKE 1 [place] succinate 7-19 TABLET AT ity o f XL 50 mg 24 00:00: BEDTIME [place] tablet 00 (DOSE Medical INCREASE) Branch metoprolol Yes [id number] TAKE 1 [facility] [place] succinate 7-19 TABLET AT ity o f XL 50 mg 24 00:00: BEDTIME [place] tablet 00 (DOSE Medical INCREASE) Branch metoprolol Yes [id number] TAKE 1 [facility] [place] succinate 7-19 TABLET AT ity o f XL 50 mg 24 00:00: BEDTIME [place] tablet 00 (DOSE Medical INCREASE) Branch metoprolol Yes [id number] TAKE 1 [facility] [place] succinate 7-19 TABLET AT ity o f XL 50 mg 24 00:00: BEDTIME [place] tablet 00 (DOSE Medical INCREASE) Branch metoprolol Yes [id number] TAKE 1 [facility] [place] succinate 7-19 TABLET AT ity o f XL 50 mg 24 00:00: BEDTIME [place] tablet 00 (DOSE Medical INCREASE) Branch metoprolol Yes [id number] TAKE 1 [facility] [place] succinate 7-19 TABLET AT ity o f XL 50 mg 24 00:00: BEDTIME [place] tablet 00 (DOSE Medical INCREASE) Branch metoprolol Yes [id number] TAKE 1 [facility] [place] succinate 7-19 TABLET AT ity o f XL 50 mg 24 00:00: BEDTIME [place] tablet 00 (DOSE Medical INCREASE) Branch metoprolol Yes [id number] TAKE 1 [facility] [place] succinate 7-19 TABLET AT ity o f XL 50 mg 24 00:00: BEDTIME [place] tablet 00 (DOSE Medical INCREASE) Branch metoprolol Yes [id number] TAKE 1 [place] succinate 7-19 TABLET AT ity o f XL 50 mg 24 00:00: BEDTIME [place] tablet 00 (DOSE Medical INCREASE) Branch metoprolol Yes [id number] TAKE 1 [facility] [place] succinate 7-19 TABLET AT ity o f XL 50 mg 24 00:00: BEDTIME [place] tablet 00 (DOSE Medical INCREASE) Branch metoprolol Yes [id number] TAKE 1 [place] succinate 7-19 TABLET AT ity o f XL 50 mg 24 00:00: BEDTIME [place] tablet 00 (DOSE Medical INCREASE) Branch metoprolol Yes [id number] TAKE 1 [place] succinate 7-19 TABLET AT ity o f XL 50 mg 24 00:00: BEDTIME [place] tablet 00 (DOSE Medical INCREASE) Branch metoprolol Yes [id number] TAKE 1 [place] succinate 7-19 TABLET AT ity o f XL 50 mg 24 00:00: BEDTIME [place] tablet 00 (DOSE Medical INCREASE) Branch metoprolol Yes [id number] TAKE 1 [place] succinate 7-19 TABLET AT ity o f XL 50 mg 24 00:00: BEDTIME [place] tablet 00 (DOSE Medical INCREASE) Branch metoprolol Yes [id number] TAKE 1 [facility] [place] succinate 7-19 TABLET AT ity o f XL 50 mg 24 00:00: BEDTIME [place] tablet 00 (DOSE Medical INCREASE) Branch metoprolol Yes [id number] TAKE 1 [facility] [place] succinate 7-19 TABLET AT ity o f XL 50 mg 24 00:00: BEDTIME [place] tablet 00 (DOSE Medical INCREASE) Branch metoprolol Yes [id number] TAKE 1 [facility] [place] succinate 7-19 TABLET AT ity o f XL 50 mg 24 00:00: BEDTIME [place] tablet 00 (DOSE Medical INCREASE) Branch metoprolol Yes [id number] TAKE 1 [place] succinate 7-19 TABLET AT ity o f XL 50 mg 24 00:00: BEDTIME [place] tablet 00 (DOSE Medical INCREASE) Branch metoprolol Yes [id number] TAKE 1 [place] succinate 7-19 TABLET AT ity o f XL 50 mg 24 00:00: BEDTIME [place] tablet 00 (DOSE Medical INCREASE) Branch metoprolol Yes [id number] TAKE 1 [place] succinate 7-19 TABLET AT ity o f XL 50 mg 24 00:00: BEDTIME [place] tablet 00 (DOSE Medical INCREASE) Branch metoprolol Yes [id number] TAKE 1 [place] succinate 7-19 TABLET AT ity o f XL 50 mg 24 00:00: BEDTIME [place] tablet 00 (DOSE Medical INCREASE) Branch metoprolol Yes [id number] TAKE 1 [place] succinate 7-19 TABLET AT ity o f XL 50 mg 24 00:00: BEDTIME [place] tablet 00 (DOSE Medical INCREASE) Branch metoprolol Yes [id number] TAKE 1 [place] succinate 7-19 TABLET AT ity o f XL 50 mg 24 00:00: BEDTIME [place] tablet 00 (DOSE Medical INCREASE) Branch metoprolol Yes [id number] TAKE 1 [place] succinate 7-19 TABLET AT ity o f XL 50 mg 24 00:00: BEDTIME [place] tablet 00 (DOSE Medical INCREASE) Branch metoprolol Yes [id number] TAKE 1 [place] succinate 7-19 TABLET AT ity o f XL 50 mg 24 00:00: BEDTIME [place] tablet 00 (DOSE Medical INCREASE) Branch metoprolol Yes [id number] TAKE 1 [place] succinate 7-19 TABLET AT ity o f XL 50 mg 24 00:00: BEDTIME [place] tablet 00 (DOSE Medical INCREASE) Branch metoprolol Yes [id number] TAKE 1 [place] succinate 7-19 TABLET AT ity o f XL 50 mg 24 00:00: BEDTIME [place] tablet 00 (DOSE Medical INCREASE) Branch metoprolol Yes [id number] TAKE 1 [facility] [place] succinate 7-19 TABLET AT ity o f XL 50 mg 24 00:00: BEDTIME [place] tablet 00 (DOSE Medical INCREASE) Branch metoprolol Yes [id number] TAKE 1 [facility] [place] succinate 7-19 TABLET AT ity o f XL 50 mg 24 00:00: BEDTIME [place] tablet 00 (DOSE Medical INCREASE) Branch metoprolol Yes [id number] TAKE 1 [facility] [place] succinate 7-19 TABLET AT ity o f XL 50 mg 24 00:00: BEDTIME [place] tablet 00 (DOSE Medical INCREASE) Branch metoprolol Yes [id number] TAKE 1 [facility] [place] succinate 7-19 TABLET AT ity o f XL 50 mg 24 00:00: BEDTIME [place] [facility] tablet 00 (DOSE Medical INCREASE) Branch metoprolol Yes [id number] TAKE 1 [facility] [place] succinate 7-19 TABLET AT ity o f XL 50 mg 24 00:00: BEDTIME [place] tablet 00 (DOSE Medical INCREASE) Branch metoprolol Yes [id number] TAKE 1 [facility] [place] succinate 7-19 TABLET AT ity o f XL 50 mg 24 00:00: BEDTIME [place] tablet 00 (DOSE Medical INCREASE) Branch metoprolol Yes [id number] TAKE 1 [facility] [place] succinate 7-19 TABLET AT ity o f XL 50 mg 24 00:00: BEDTIME [place] tablet 00 (DOSE Medical INCREASE) Branch metoprolol Yes [id number] TAKE 1 [facility] [place] succinate 7-19 TABLET AT ity o f XL 50 mg 24 00:00: BEDTIME [place] [facility] tablet 00 (DOSE Medical INCREASE) Branch metoprolol 3- No [id number] TAKE 1 [facility] succinate 7-19 02-28 [...] ity of mg capsule 16:13: 100 mg [place] 29 capsule Medical Branch atropine 1 Yes [...] ophthalmic 16:13: drops [place] [facility]- Yes [place] 140 [facility] ronidazole- 7-16 mg-125 ity of tetracyclin 16:13: mg-125 mg [place] (PYLERA) 29 capsule Medica l 140-125-125 Branch mg per capsule doxycycline 2021- Yes doxycyclin [facility] hyclate 100 7-16 e hyclate ity of mg capsule 16:13: 100 mg [place] [address] capsule Medical Branch atropine 1 Yes atropine 1 U nivers % 7-16 % eye ity of ophthalmic 16:13: drops [place] drops Medical [facility] Yes Pylera 140 Univers ronidazole- 7-16 mg-125 ity of tetracyclin 16:13: mg-125 mg [place] (PYLERA) 29 capsule Medica l 140-125-125 Branch mg per capsule doxycycline Yes doxycyclin Univers hyclate 100 7-16 e hyclate ity of mg capsule 16:13: 100 mg [place] [id number] capsule Medical Branch atropine 1 Yes atropine 1 U nivers % 7-16 % eye ity of ophthalmic 16:13: drops [place] drops Medical [facility] 2021- Yes Pylera 140 Univers ronidazole- 7-16 mg-125 ity of tetracyclin 16:13: mg-125 mg [place] (PYLERA) 29 capsule Medica l 140-125-125 Branch mg per capsule doxycycline Yes doxycyclin [facility] hyclate 100 7-16 e hyclate ity of mg capsule 16:13: 100 mg [place] [id number] capsule Medical Branch atropine 1 Yes atropine 1 U nivers % 7-16 % eye ity of ophthalmic 16:13: drops [place] drops [facility] Pylera 140 [facility] ronidazole- 7-16 mg-125 ity of tetracyclin 16:13: mg-125 mg [place] (PYLERA) 29 capsule Medica l 140-125-125 Branch mg per capsule doxycycline 2021- Yes doxycyclin [facility] hyclate 100 7-16 e hyclate ity of mg capsule 16:13: 100 mg [place] 29 capsule Medical Branch ERGOCALCIFE 2022-0 Yes [id number] TAKE 1 [facility] ROL, 7-14 CAPSULE BY ity of VITAMIN D2, 00:00: MOUTH [place] 1,250 mcg 00 EVERY TWO Medic al (50,000 WEEKS WITH Branch unit) FOOD capsule ERGOCALCIFE 2022-0 Yes [id number] TAKE 1 [facility] ROL, 7-14 CAPSULE BY ity of VITAMIN D2, 00:00: MOUTH [place] 1,250 mcg 00 EVERY TWO Medic al (50,000 WEEKS WITH Branch unit) FOOD capsule ERGOCALCIFE 2022-0 Yes [id number] TAKE 1 [facility] ROL, 7-14 CAPSULE BY ity of VITAMIN D2, 00:00: MOUTH [place] 1,250 mcg 00 EVERY TWO Medic al (50,000 WEEKS WITH Branch unit) FOOD capsule ERGOCALCIFE 2022-0 Yes [id number] TAKE 1 [facility] ROL, 7-14 CAPSULE BY ity of VITAMIN D2, 00:00: MOUTH [place] 1,250 mcg 00 EVERY TWO Medic al (50,000 WEEKS WITH Branch unit) FOOD capsule ERGOCALCIFE 2022-0 Yes [id number] TAKE 1 [facility] ROL, 7-14 CAPSULE BY ity of VITAMIN D2, 00:00: MOUTH [place] 1,250 mcg 00 EVERY TWO Medic al (50,000 WEEKS WITH Branch unit) FOOD capsule ERGOCALCIFE 2022-0 Yes [id number] TAKE 1 [facility] ROL, 7-14 CAPSULE BY ity of VITAMIN D2, 00:00: MOUTH [place] 1,250 mcg 00 EVERY TWO Medic al (50,000 WEEKS WITH Branch unit) FOOD capsule ERGOCALCIFE 2022-0 Yes [id number] TAKE 1 [facility] ROL, 7-14 CAPSULE BY ity of VITAMIN D2, 00:00: MOUTH [place] 1,250 mcg 00 EVERY TWO Medic al (50,000 WEEKS WITH Branch unit) FOOD capsule ERGOCALCIFE 2022-0 Yes [id number] TAKE 1 [facility] ROL, 7-14 CAPSULE BY ity of VITAMIN D2, 00:00: MOUTH [place] 1,250 mcg 00 EVERY TWO Medic al (50,000 WEEKS WITH Branch unit) FOOD capsule ERGOCALCIFE 2022-0 Yes [id number] TAKE 1 [facility] ROL, 7-14 CAPSULE BY ity of VITAMIN D2, 00:00: MOUTH [place] 1,250 mcg 00 EVERY TWO Medic al (50,000 WEEKS WITH Branch unit) FOOD capsule ERGOCALCIFE 2022-0 Yes [id number] TAKE 1 [facility] ROL, 7-14 CAPSULE BY ity of VITAMIN D2, 00:00: MOUTH [place] 1,250 mcg 00 EVERY TWO Medic al (50,000 WEEKS WITH Branch unit) FOOD capsule ERGOCALCIFE 2022-0 Yes [id number] TAKE 1 [facility] ROL, 7-14 CAPSULE BY ity of VITAMIN D2, 00:00: MOUTH [place] 1,250 mcg 00 EVERY TWO Medic al (50,000 WEEKS WITH Branch unit) FOOD capsule ERGOCALCIFE 2022-0 Yes [id number] TAKE 1 [facility] ROL, 7-14 CAPSULE BY ity of VITAMIN D2, 00:00: MOUTH [place] 1,250 mcg 00 EVERY TWO Medic al (50,000 WEEKS WITH Branch unit) FOOD capsule ERGOCALCIFE 2022-0 Yes [id number] TAKE 1 [facility] ROL, 7-14 CAPSULE BY ity of VITAMIN D2, 00:00: MOUTH [place] 1,250 mcg 00 EVERY TWO Medic al (50,000 WEEKS WITH Branch unit) FOOD capsule ERGOCALCIFE 2022-0 Yes [id number] TAKE 1 [facility] ROL, 7-14 CAPSULE BY ity of VITAMIN D2, 00:00: MOUTH [place] 1,250 mcg 00 EVERY TWO Medic al (50,000 WEEKS WITH Branch unit) FOOD capsule ERGOCALCIFE 2022-0 Yes [id number] TAKE 1 [facility] ROL, 7-14 CAPSULE BY ity of VITAMIN D2, 00:00: MOUTH [place] 1,250 mcg 00 EVERY TWO Medic al (50,000 WEEKS WITH Branch unit) FOOD capsule ERGOCALCIFE 2022-0 Yes [id number] TAKE 1 [facility] ROL, 7-14 CAPSULE BY ity of VITAMIN D2, 00:00: MOUTH [place] 1,250 mcg 00 EVERY TWO Medic al (50,000 WEEKS WITH Branch unit) FOOD capsule ERGOCALCIFE 2022-0 Yes [id number] TAKE 1 [facility] ROL, 7-14 CAPSULE BY ity of VITAMIN D2, 00:00: MOUTH [place] 1,250 mcg 00 EVERY TWO Medic al (50,000 WEEKS WITH Branch unit) FOOD capsule ERGOCALCIFE 2022-0 Yes [id number] TAKE 1 [facility] ROL, 7-14 CAPSULE BY ity of VITAMIN D2, 00:00: MOUTH [place] 1,250 mcg 00 EVERY TWO Medic al (50,000 WEEKS WITH Branch unit) FOOD capsule ERGOCALCIFE 2022-0 Yes [id number] TAKE 1 [facility] ROL, 7-14 CAPSULE BY ity of VITAMIN D2, 00:00: MOUTH [place] 1,250 mcg 00 EVERY TWO Medic al (50,000 WEEKS WITH Branch unit) FOOD capsule ERGOCALCIFE 2022-0 Yes [id number] TAKE 1 [facility] ROL, 7-14 CAPSULE BY ity of VITAMIN D2, 00:00: MOUTH [place] 1,250 mcg 00 EVERY TWO Medic al (50,000 WEEKS WITH Branch unit) FOOD capsule ERGOCALCIFE 2022-0 Yes [id number] TAKE 1 [facility] ROL, 7-14 CAPSULE BY ity of VITAMIN D2, 00:00: MOUTH [place] 1,250 mcg 00 EVERY TWO Medic al (50,000 WEEKS WITH Branch unit) FOOD capsule ERGOCALCIFE 2022-0 Yes [id number] TAKE 1 [facility] ROL, 7-14 CAPSULE BY ity of VITAMIN D2, 00:00: MOUTH [place] 1,250 mcg 00 EVERY TWO Medic al (50,000 WEEKS WITH Branch unit) FOOD capsule ERGOCALCIFE 2022-0 Yes [id number] TAKE 1 [facility] ROL, 7-14 CAPSULE BY ity of VITAMIN D2, 00:00: MOUTH [place] 1,250 mcg 00 EVERY TWO Medic al (50,000 WEEKS WITH Branch unit) FOOD capsule ERGOCALCIFE 2022-0 Yes [id number] TAKE 1 [facility] ROL, 7-14 CAPSULE BY ity of VITAMIN D2, 00:00: MOUTH [place] 1,250 mcg 00 EVERY TWO Medic al (50,000 WEEKS WITH Branch unit) FOOD capsule ERGOCALCIFE 2022-0 Yes [id number] TAKE 1 [facility] ROL, 7-14 CAPSULE BY ity of VITAMIN D2, 00:00: MOUTH [place] 1,250 mcg 00 EVERY TWO Medic al (50,000 WEEKS WITH Branch unit) FOOD capsule ERGOCALCIFE 2022-0 Yes [id number] TAKE 1 [facility] ROL, 7-14 CAPSULE BY ity of VITAMIN D2, 00:00: MOUTH [place] 1,250 mcg 00 EVERY TWO Medic al (50,000 WEEKS WITH Branch unit) FOOD capsule ERGOCALCIFE 2022-0 Yes [id number] TAKE 1 [facility] ROL, 7-14 CAPSULE BY ity of VITAMIN D2, 00:00: MOUTH [place] 1,250 mcg 00 EVERY TWO Medic al (50,000 WEEKS WITH Branch unit) FOOD capsule ERGOCALCIFE 2022-0 Yes [id number] TAKE 1 [facility] ROL, 7-14 CAPSULE BY ity of VITAMIN D2, 00:00: MOUTH [place] 1,250 mcg 00 EVERY TWO Medic al (50,000 WEEKS WITH Branch unit) FOOD capsule ERGOCALCIFE 2022-0 Yes [id number] TAKE 1 [facility] ROL, 7-14 CAPSULE BY ity of VITAMIN D2, 00:00: MOUTH [place] 1,250 mcg 00 EVERY TWO Medic al (50,000 WEEKS WITH Branch unit) FOOD capsule ERGOCALCIFE 2022-0 Yes [id number] TAKE 1 [facility] ROL, 7-14 CAPSULE BY ity of VITAMIN D2, 00:00: MOUTH [place] 1,250 mcg 00 EVERY TWO Medic al (50,000 WEEKS WITH Branch unit) FOOD capsule ERGOCALCIFE 2022-0 Yes [id number] TAKE 1 [facility] ROL, 7-14 CAPSULE BY ity of VITAMIN D2, 00:00: MOUTH [place] 1,250 mcg 00 EVERY TWO Medic al (50,000 WEEKS WITH Branch unit) FOOD capsule ERGOCALCIFE 2022-0 Yes [id number] TAKE 1 [facility] ROL, 7-14 CAPSULE BY ity of VITAMIN D2, 00:00: MOUTH [place] 1,250 mcg 00 EVERY TWO Medic al (50,000 WEEKS WITH Branch unit) FOOD capsule ERGOCALCIFE 2022-0 Yes [id number] TAKE 1 [facility] ROL, 7-14 CAPSULE BY ity of VITAMIN D2, 00:00: MOUTH [place] 1,250 mcg 00 EVERY TWO Medic al (50,000 WEEKS WITH Branch unit) FOOD capsule ERGOCALCIFE 2022-0 2022- No [id number] TAKE 1 [facility] ROL, 7-14 12-09 CAPSULE BY ity of VITAMIN D2, 00:00: 00:00 [place]TH [place] 1,250 mcg 00 :00 EVERY TWO Medic al (50,000 WEEKS WITH Branch unit) FOOD capsule dapaglifloz 2022-0 Yes 5mg QD Take 5 mg [facility] 10-[address] (FARXIGA) 5 12:45: [facility]. [facility] mg tablet 04 l doxycycline 2021-0 Yes doxycyclin [facility] (VIBRAMYCIN 10-[address] ) 100 MG 12:45: 100 mg [facility] capsule 04 capsule l dapaglifloz 2-0 Yes 5mg QD Take 5 mg [facility] in 10-[address] (FARXIGA) 5 12:45: daily. [facility] mg tablet 04 l doxycycline 2021-0 Yes doxycyclin [facility] (VIBRAMYCIN -[address] ) 100 MG 12:45: 100 mg [facility] capsule 04 capsule l metoprolol 2021-0 Yes 100mg QD Take 100 [facility] succinate 7-[address] XL 12:45: mouth [facility]osp[facility] (TOPROL-XL) 26 daily. l 100 mg 24 hr tablet pantoprazol 2021-0 Yes Take by Met hodi e sodium [address] (PANTOPRAZO 12:45: Hospit a LE ORAL) 26 l metoprolol 2021-0 Yes 100mg QD Take 100 [facility] succinate 7-[address] XL 12:45: mouth [facility]osp[facility] (TOPROL-XL) 26 daily. l 100 mg 24 hr tablet pantoprazol 2021-0 Yes Take by [facility] e sodium 10-[address] (PANTOPRAZO 12:45: Hospit a LE ORAL) 26 l levoFLOXaci 2021-0 Yes [facility] (LEVAQUIN) 00:00: [facility]osp[facility] 250 MG 00 l tablet nitazoxanid 2021-0 Yes [facility] (ALINIA) [facility]-18 [facility] 500 MG 00:00: [facility]osp[facility] tablet 00 l levoFLOXaci 2021-0 Yes [facility] (LEVAQUIN) 00:00: [facility]osp[facility] 250 MG 00 l tablet nitazoxanid 2021-0 Yes [facility] (ALINIA) [facility]-18 [facility] 500 MG 00:00: [facility]osp[facility] tablet 00 l doxycycline 2021-0 Yes 100mg Q.5D Take 100 [facility] (MONODOX) 5-[address] 100 MG 00:00: mouth 2 [facility]osp[facility] capsule 00 (two) l times a day. doxycycline 2021-0 Yes 100mg Q.5D Take 100 [facility] (MONODOX) 5-[address] 100 MG 00:00: mouth 2 [facility]osp[facility] capsule 00 (two) l times a day. fluticasone 0 Yes [id number] 1{spray Use 1 [facility] propionate 5-12 } [place] in ity o f 50 00:00: each [place] mcg/actuati 00 nostril Medic al on nasal daily. Use Branc h spray 2 spray(s) in each nostril once daily famotidine 0 Yes TAKE 1 Unive rs [...] 00 DAILY Medical NEEDED Branch famotidine 0 3- No TAKE 1 [facility] ers 40 mg 5-12 04-28 TABLET BY ity of tablet 00:00: 00:00 [place] 00 :00 DAILY [facility] NEEDED [facility] famotidine 0 2022- No TAKE 1 [facility] ers 40 mg 5-12 04-28 TABLET BY ity of tablet 00:00: 00:00 [place]TH [place]CE [place] 00 :00 DAILY [facility] NEEDED [facility] fluticasone 2021- No [id number] 1{spray Use 1 [facility] propionate 08-23 } [place] ity of 50 00:00: 00:00 each [place] mcg/actuati 00 :00 nostril Medic al on nasal daily. Use Branc h spray 2 spray(s) in each nostril once daily fluticasone 2021- No [id number] 1{spray Use 1 [facility] propionate 5-03 21-19 } [place] in ity of 50 00:00: 00:00 each [place] mcg/actuati 00 :00 nostril Medic al on nasal daily. Use Branc h spray 2 spray(s) in each nostril once daily dulaglutide 2022-0 Yes [id number] INJECT [facility] (TRULICITY) 5-06 1.5MG (1 ity of 1.5 mg/0.5 00:00: PEN) [place] mL PnIj 00 SUBCUTANEO Medica l USLY EVERY Branch WEEK dulaglutide Yes [id number] INJECT [facility] (TRULICITY) 5-06 1.5MG (1 ity of 1.5 mg/0.5 00:00: PEN) [place] mL PnIj 00 SUBCUTANEO Medica l USLY EVERY Branch WEEK dulaglutide Yes [id number] INJECT [facility] (TRULICITY) 5-06 1.5MG (1 ity of 1.5 mg/0.5 00:00: PEN) [place] mL PnIj 00 SUBCUTANEO Medica l USLY EVERY Branch WEEK dulaglutide Yes [id number] INJECT [facility] (TRULICITY) 5-06 1.5MG (1 ity of 1.5 mg/0.5 00:00: PEN) [place] mL PnIj 00 SUBCUTANEO Medica l USLY EVERY Branch WEEK dulaglutide Yes [id number] INJECT [facility] (TRULICITY) 5-06 1.5MG (1 ity of 1.5 mg/0.5 00:00: PEN) [place] mL PnIj 00 SUBCUTANEO Medica l USLY EVERY Branch WEEK dulaglutide Yes [id number] INJECT [facility] (TRULICITY) 5-06 1.5MG (1 ity of 1.5 mg/0.5 00:00: PEN) [place] mL PnIj 00 SUBCUTANEO Medica l USLY EVERY Branch WEEK dulaglutide Yes [id number] INJECT [facility] (TRULICITY) 5-06 1.5MG (1 ity of 1.5 mg/0.5 00:00: PEN) [place] mL PnIj 00 SUBCUTANEO Medica l USLY EVERY Branch WEEK dulaglutide 0 Yes [id number] INJECT [facility] (TRULICITY) 5-06 1.5MG (1 ity of 1.5 mg/0.5 00:00: PEN) [place] mL PnIj 00 SUBCUTANEO Medica l USLY EVERY Branch WEEK dulaglutide Yes [id number] INJECT [facility] (TRULICITY) 5-06 1.5MG (1 ity of 1.5 mg/0.5 00:00: PEN) [place] mL PnIj 00 SUBCUTANEO Medica l USLY EVERY Branch WEEK dulaglutide Yes [id number] INJECT [facility] (TRULICITY) 5-06 1.5MG (1 ity of 1.5 mg/0.5 00:00: PEN) [place] mL PnIj 00 SUBCUTANEO Medica l USLY EVERY Branch WEEK dulaglutide Yes [id number] INJECT [facility] (TRULICITY) 5-06 1.5MG (1 ity of 1.5 mg/0.5 00:00: PEN) [place] mL PnIj 00 SUBCUTANEO Medica l USLY EVERY Branch WEEK dulaglutide Yes [id number] INJECT [facility] (TRULICITY) 5-06 1.5MG (1 ity of 1.5 mg/0.5 00:00: PEN) [place] mL PnIj 00 SUBCUTANEO Medica l USLY EVERY Branch WEEK dulaglutide Yes [id number] INJECT [facility] (TRULICITY) 5-06 1.5MG (1 ity of 1.5 mg/0.5 00:00: PEN) [place] mL PnIj 00 SUBCUTANEO Medica l USLY EVERY Branch WEEK dulaglutide Yes [id number] INJECT [facility] (TRULICITY) 5-06 1.5MG (1 ity of 1.5 mg/0.5 00:00: PEN) [place] mL PnIj 00 SUBCUTANEO Medica l USLY EVERY Branch WEEK dulaglutide Yes [id number] INJECT [facility] (TRULICITY) 5-06 1.5MG (1 ity of 1.5 mg/0.5 00:00: PEN) [place] mL PnIj 00 SUBCUTANEO Medica l USLY EVERY Branch WEEK dulaglutide Yes [id number] INJECT [facility] (TRULICITY) 5-06 1.5MG (1 ity of 1.5 mg/0.5 00:00: PEN) [place] mL PnIj 00 SUBCUTANEO Medica l USLY EVERY Branch WEEK dulaglutide Yes [id number] INJECT [facility] (TRULICITY) 5-06 1.5MG (1 ity of 1.5 mg/0.5 00:00: PEN) [place] mL PnIj 00 SUBCUTANEO Medica l USLY EVERY Branch WEEK dulaglutide Yes [id number] INJECT [facility] (TRULICITY) 5-06 1.5MG (1 ity of 1.5 mg/0.5 00:00: PEN) [place] mL PnIj 00 SUBCUTANEO Medica l USLY EVERY Branch WEEK dulaglutide Yes [id number] INJECT [facility] (TRULICITY) 5-06 1.5MG (1 ity of 1.5 mg/0.5 00:00: PEN) [place] mL PnIj 00 SUBCUTANEO Medica l USLY EVERY Branch WEEK dulaglutide Yes [id number] INJECT [facility] (TRULICITY) 5-06 1.5MG (1 ity of 1.5 mg/0.5 00:00: PEN) [place] mL PnIj 00 SUBCUTANEO Medica l USLY EVERY Branch WEEK dulaglutide Yes [id number] INJECT [facility] (TRULICITY) 5-06 1.5MG (1 ity of 1.5 mg/0.5 00:00: PEN) [place] mL PnIj 00 SUBCUTANEO Medica l USLY EVERY Branch WEEK dulaglutide Yes [id number] INJECT [facility] (TRULICITY) 5-06 1.5MG (1 ity of 1.5 mg/0.5 00:00: PEN) [place] mL PnIj 00 SUBCUTANEO Medica l USLY EVERY Branch WEEK dulaglutide Yes [id number] INJECT [facility] (TRULICITY) 5-06 1.5MG (1 ity of 1.5 mg/0.5 00:00: PEN) [place] mL PnIj 00 SUBCUTANEO Medica l USLY EVERY Branch WEEK dulaglutide Yes [id number] INJECT [facility] (TRULICITY) 5-06 1.5MG (1 ity of 1.5 mg/0.5 00:00: PEN) [place] mL PnIj 00 SUBCUTANEO Medica l USLY EVERY Branch WEEK dulaglutide Yes [id number] INJECT [facility] (TRULICITY) 5-06 1.5MG (1 ity of 1.5 mg/0.5 00:00: PEN) [place] mL PnIj 00 SUBCUTANEO Medica l USLY EVERY Branch WEEK dulaglutide 2022-0 Yes [id number] INJECT [facility] (TRULICITY) 5-06 1.5MG (1 ity of 1.5 mg/0.5 00:00: PEN) [place] mL PnIj 00 SUBCUTANEO Medica l USLY EVERY Branch WEEK dulaglutide Yes [id number] INJECT [facility] (TRULICITY) 5-06 1.5MG (1 ity of 1.5 mg/0.5 00:00: PEN) [place] mL PnIj 00 SUBCUTANEO Medica l USLY EVERY Branch WEEK dulaglutide Yes [id number] INJECT [facility] (TRULICITY) 5-06 1.5MG (1 ity of 1.5 mg/0.5 00:00: PEN) [place] mL PnIj 00 SUBCUTANEO Medica l USLY EVERY Branch WEEK dulaglutide Yes [id number] INJECT [facility] (TRULICITY) 5-06 1.5MG (1 ity of 1.5 mg/0.5 00:00: PEN) [place] mL PnIj 00 SUBCUTANEO Medica l USLY EVERY Branch WEEK dulaglutide Yes [id number] INJECT [facility] (TRULICITY) 5-06 1.5MG (1 ity of 1.5 mg/0.5 00:00: PEN) [place] mL PnIj 00 SUBCUTANEO Medica l USLY EVERY Branch WEEK dulaglutide Yes [id number] INJECT [facility] (TRULICITY) 5-06 1.5MG (1 ity of 1.5 mg/0.5 00:00: PEN) [place] mL PnIj 00 SUBCUTANEO Medica l USLY EVERY Branch WEEK dulaglutide Yes [id number] INJECT [facility] (TRULICITY) 5-06 1.5MG (1 ity of 1.5 mg/0.5 00:00: PEN) [place] mL PnIj 00 SUBCUTANEO Medica l USLY EVERY Branch WEEK dulaglutide 0 Yes [id number] INJECT [facility] (TRULICITY) 5-06 1.5MG (1 ity of 1.5 mg/0.5 00:00: PEN) [place] mL PnIj 00 SUBCUTANEO Medica l USLY EVERY Branch WEEK dulaglutide Yes [id number] INJECT [facility] (TRULICITY) 5-06 1.5MG (1 ity of 1.5 mg/0.5 00:00: PEN) [place] mL PnIj 00 SUBCUTANEO Medica l USLY EVERY Branch WEEK dulaglutide Yes [id number] INJECT [facility] (TRULICITY) 5-06 1.5MG (1 ity of 1.5 mg/0.5 00:00: PEN) [place] mL PnIj 00 SUBCUTANEO Medica l USLY EVERY Branch WEEK dulaglutide Yes [id number] INJECT [facility] (TRULICITY) 5-06 1.5MG (1 ity of 1.5 mg/0.5 00:00: PEN) [place] mL PnIj 00 SUBCUTANEO Medica l USLY EVERY Branch WEEK dulaglutide Yes [id number] INJECT [facility] (TRULICITY) 5-06 1.5MG (1 ity of 1.5 mg/0.5 00:00: PEN) [place] mL PnIj 00 SUBCUTANEO Medica l USLY EVERY Branch WEEK dulaglutide Yes [id number] INJECT [facility] (TRULICITY) 5-06 1.5MG (1 ity of 1.5 mg/0.5 00:00: PEN) [place] mL PnIj 00 SUBCUTANEO Medica l USLY EVERY Branch WEEK dulaglutide Yes [id number] INJECT [facility] (TRULICITY) 5-06 1.5MG (1 ity of 1.5 mg/0.5 00:00: PEN) [place] mL PnIj 00 SUBCUTANEO Medica l USLY EVERY Branch WEEK dulaglutide Yes [id number] INJECT [facility] (TRULICITY) 5-06 1.5MG (1 ity of 1.5 mg/0.5 00:00: PEN) [place] mL PnIj 00 SUBCUTANEO Medica l USLY EVERY Branch WEEK dulaglutide Yes [id number] INJECT [facility] (TRULICITY) 5-06 1.5MG (1 ity of 1.5 mg/0.5 00:00: PEN) [place] mL PnIj 00 SUBCUTANEO Medica l USLY EVERY Branch WEEK dulaglutide Yes [id number] INJECT [facility] (TRULICITY) 5-06 1.5MG (1 ity of 1.5 mg/0.5 00:00: PEN) [place] mL PnIj 00 SUBCUTANEO Medica l USLY EVERY Branch WEEK dulaglutide Yes [id number] INJECT [facility] (TRULICITY) 5-06 1.5MG (1 ity of 1.5 mg/0.5 00:00: PEN) [place] mL PnIj 00 SUBCUTANEO Medica l USLY EVERY Branch WEEK dulaglutide Yes [id number] INJECT [facility] (TRULICITY) 5-06 1.5MG (1 ity of 1.5 mg/0.5 00:00: PEN) [place] mL PnIj 00 SUBCUTANEO Medica l USLY EVERY Branch WEEK dulaglutide Yes [id number] INJECT [facility] (TRULICITY) 5-06 1.5MG (1 ity of 1.5 mg/0.5 00:00: PEN) [place] mL PnIj 00 SUBCUTANEO Medica l USLY EVERY Branch WEEK dulaglutide Yes [id number] INJECT [facility] (TRULICITY) 5-06 1.5MG (1 ity of 1.5 mg/0.5 00:00: PEN) [place] mL PnIj 00 SUBCUTANEO Medica l USLY EVERY Branch WEEK dulaglutide Yes [id number] INJECT [facility] (TRULICITY) 5-06 1.5MG (1 ity of 1.5 mg/0.5 00:00: PEN) [place] mL PnIj 00 SUBCUTANEO Medica l USLY EVERY Branch WEEK dulaglutide Yes [id number] INJECT [facility] (TRULICITY) 5-06 1.5MG (1 ity of 1.5 mg/0.5 00:00: PEN) [place] mL PnIj 00 SUBCUTANEO Medica l USLY EVERY Branch WEEK dulaglutide Yes [id number] INJECT [facility] (TRULICITY) 5-06 1.5MG (1 ity of 1.5 mg/0.5 00:00: PEN) [place] mL PnIj 00 SUBCUTANEO Medica l USLY EVERY Branch WEEK dulaglutide Yes [id number] INJECT [facility] (TRULICITY) 5-06 1.5MG (1 ity of 1.5 mg/0.5 00:00: PEN) [place] mL PnIj 00 SUBCUTANEO Medica l USLY EVERY Branch WEEK dulaglutide 2022-0 Yes [id number] INJECT [facility] (TRULICITY) 5-06 1.5MG (1 ity of 1.5 mg/0.5 00:00: PEN) [place] mL PnIj 00 SUBCUTANEO Medica l USLY EVERY Branch WEEK dulaglutide Yes [id number] INJECT [facility] (TRULICITY) 5-06 1.5MG (1 ity of 1.5 mg/0.5 00:00: PEN) [place] mL PnIj 00 SUBCUTANEO Medica l USLY EVERY Branch WEEK dulaglutide Yes [id number] INJECT [facility] (TRULICITY) 5-06 1.5MG (1 ity of 1.5 mg/0.5 00:00: PEN) [place] mL PnIj 00 SUBCUTANEO Medica l USLY EVERY Branch WEEK dulaglutide Yes [id number] INJECT [facility] (TRULICITY) 5-06 1.5MG (1 ity of 1.5 mg/0.5 00:00: PEN) [place] mL PnIj 00 SUBCUTANEO Medica l USLY EVERY Branch WEEK dulaglutide Yes [id number] INJECT [facility] (TRULICITY) 5-06 1.5MG (1 ity of 1.5 mg/0.5 00:00: PEN) [place] mL PnIj 00 SUBCUTANEO Medica l USLY EVERY Branch WEEK dulaglutide Yes [id number] INJECT [facility] (TRULICITY) 5-06 1.5MG (1 ity of 1.5 mg/0.5 00:00: PEN) [place] mL PnIj 00 SUBCUTANEO Medica l USLY EVERY Branch WEEK dulaglutide Yes [id number] INJECT [facility] (TRULICITY) 5-06 1.5MG (1 ity of 1.5 mg/0.5 00:00: PEN) [place] mL PnIj 00 SUBCUTANEO Medica l USLY EVERY Branch WEEK dulaglutide 0 Yes [id number] INJECT [facility] (TRULICITY) 5-06 1.5MG (1 ity of 1.5 mg/0.5 00:00: PEN) [place] mL PnIj 00 SUBCUTANEO Medica l USLY EVERY Branch WEEK dulaglutide Yes [id number] INJECT [facility] (TRULICITY) 5-06 1.5MG (1 ity of 1.5 mg/0.5 00:00: PEN) [place] mL PnIj 00 SUBCUTANEO Medica l USLY EVERY Branch WEEK dulaglutide Yes [id number] INJECT [facility] (TRULICITY) 5-06 1.5MG (1 ity of 1.5 mg/0.5 00:00: PEN) [place] mL PnIj 00 SUBCUTANEO Medica l USLY EVERY Branch WEEK dulaglutide Yes [id number] INJECT [facility] (TRULICITY) 5-06 1.5MG (1 ity of 1.5 mg/0.5 00:00: PEN) [place] mL PnIj 00 SUBCUTANEO Medica l USLY EVERY Branch WEEK dulaglutide Yes [id number] INJECT [facility] (TRULICITY) 5-06 1.5MG (1 ity of 1.5 mg/0.5 00:00: PEN) [place] mL PnIj 00 SUBCUTANEO Medica l USLY EVERY Branch WEEK dulaglutide Yes [id number] INJECT [facility] (TRULICITY) 5-06 1.5MG (1 ity of 1.5 mg/0.5 00:00: PEN) [place] mL PnIj 00 SUBCUTANEO Medica l USLY EVERY Branch WEEK dulaglutide Yes [id number] INJECT [facility] (TRULICITY) 5-06 1.5MG (1 ity of 1.5 mg/0.5 00:00: PEN) [place] mL PnIj 00 SUBCUTANEO Medica l USLY EVERY Branch WEEK dulaglutide Yes [id number] INJECT [facility] (TRULICITY) 5-06 1.5MG (1 ity of 1.5 mg/0.5 00:00: PEN) [place] mL PnIj 00 SUBCUTANEO Medica l USLY EVERY Branch WEEK dulaglutide Yes [id number] INJECT [facility] (TRULICITY) 5-06 1.5MG (1 ity of 1.5 mg/0.5 00:00: PEN) [place] mL PnIj 00 SUBCUTANEO Medica l USLY EVERY Branch WEEK dulaglutide Yes [id number] INJECT [facility] (TRULICITY) 5-06 1.5MG (1 ity of 1.5 mg/0.5 00:00: PEN) [place] mL PnIj 00 SUBCUTANEO Medica l USLY EVERY Branch WEEK dulaglutide Yes [id number] INJECT [facility] (TRULICITY) 5-06 1.5MG (1 ity of 1.5 mg/0.5 00:00: PEN) [place] mL PnIj 00 [facility] EVERY Branch WEEK dulaglutide Yes [id number] INJECT [facility] (TRULICITY) 5-06 1.5MG (1 ity of 1.5 mg/0.5 00:00: PEN) [place] mL PnIj 00 [facility] EVERY Branch WEEK dulaglutide Yes [id number] INJECT [facility] (TRULICITY) 5-06 1.5MG (1 ity of 1.5 mg/0.5 00:00: PEN) [place] mL PnIj 00 [facility] EVERY Branch WEEK dulaglutide Yes [id number] INJECT [facility] (TRULICITY) 5-06 1.5MG (1 ity of 1.5 mg/0.5 00:00: PEN) [place] mL PnIj 00 [facility] EVERY Branch WEEK dulaglutide Yes [id number] INJECT [facility] (TRULICITY) 5-06 1.5MG (1 ity of 1.5 mg/0.5 00:00: PEN) [place] mL PnIj 00 [facility] EVERY Branch WEEK dulaglutide Yes [id number] INJECT [facility] (TRULICITY) 5-06 1.5MG (1 ity of 1.5 mg/0.5 00:00: PEN) [place] mL PnIj 00 [facility] EVERY Branch WEEK dulaglutide Yes [id number] INJECT [facility] (TRULICITY) 5-06 1.5MG (1 ity of 1.5 mg/0.5 00:00: PEN) [place] mL PnIj 00 [facility] EVERY Branch WEEK dulaglutide Yes [id number] INJECT [facility] (TRULICITY) 5-06 1.5MG (1 ity of 1.5 mg/0.5 00:00: PEN) [place] mL PnIj 00 [facility] EVERY Branch WEEK dulaglutide 2022-0 Yes [id number] INJECT [facility] (TRULICITY) 5-06 1.5MG (1 ity of 1.5 mg/0.5 00:00: PEN) [place] mL PnIj 00 [facility] EVERY Branch WEEK dulaglutide Yes [id number] INJECT [facility] (TRULICITY) 5-06 1.5MG (1 ity of 1.5 mg/0.5 00:00: PEN) [place] mL PnIj 00 [facility] EVERY Branch WEEK dulaglutide Yes [id number] INJECT [facility] (TRULICITY) 5-06 1.5MG (1 ity of 1.5 mg/0.5 00:00: PEN) [place] mL PnIj 00 [facility] EVERY Branch WEEK dulaglutide Yes [id number] INJECT [facility] (TRULICITY) 5-06 1.5MG (1 ity of 1.5 mg/0.5 00:00: PEN) [place] mL PnIj 00 [facility] EVERY Branch WEEK dulaglutide Yes [id number] INJECT [facility] (TRULICITY) 5-06 1.5MG (1 ity of 1.5 mg/0.5 00:00: PEN) [place] mL PnIj 00 [facility] EVERY Branch WEEK dulaglutide Yes [id number] INJECT [facility] (TRULICITY) 5-06 1.5MG (1 ity of 1.5 mg/0.5 00:00: PEN) [place] mL PnIj 00 [facility] EVERY Branch WEEK dulaglutide Yes [id number] INJECT [facility] (TRULICITY) 5-06 1.5MG (1 ity of 1.5 mg/0.5 00:00: PEN) [place] mL PnIj 00 [facility] EVERY Branch WEEK dulaglutide 0 Yes [id number] INJECT [facility] (TRULICITY) 5-06 1.5MG (1 ity of 1.5 mg/0.5 00:00: PEN) [place] mL PnIj 00 [facility] EVERY Branch WEEK dulaglutide Yes [id number] INJECT [facility] (TRULICITY) 5-06 1.5MG (1 ity of 1.5 mg/0.5 00:00: PEN) [place] mL PnIj 00 [facility] EVERY Branch WEEK dulaglutide Yes [id number] INJECT [facility] (TRULICITY) 5-06 1.5MG (1 ity of 1.5 mg/0.5 00:00: PEN) [place] mL PnIj 00 [facility] EVERY Branch WEEK dulaglutide Yes [id number] INJECT [facility] (TRULICITY) 5-06 1.5MG (1 ity of 1.5 mg/0.5 00:00: PEN) [place] mL PnIj 00 [facility] EVERY Branch WEEK dulaglutide Yes [id number] INJECT [facility] (TRULICITY) 5-06 1.5MG (1 ity of 1.5 mg/0.5 00:00: PEN) [place] mL PnIj 00 [facility] EVERY Branch WEEK dulaglutide Yes [id number] INJECT [facility] (TRULICITY) 5-06 1.5MG (1 ity of 1.5 mg/0.5 00:00: PEN) [place] mL PnIj 00 [facility] EVERY Branch WEEK dulaglutide 2022- No [id number] INJECT [facility] (TRULICITY) 5- 04-28 1.5MG (1 ity of 1.5 mg/0.5 00:00: 00:00 PEN) [place] mL PnIj 00 :00 [facility] EVERY Branch WEEK dulaglutide 2022- No [id number] INJECT [facility] (TRULICITY) 5- 04-28 1.5MG (1 ity of 1.5 mg/0.5 00:00: [...] 00:00: [place] drops 00 [facility] latanoprost 2021-0 Yes Un[facility] 0.005 % 08-08 ity of ophthalmic 00:00: [place] drops 00 [facility] latanoprost 2021-0 Yes Univer s 0.005 % 427 ity [...] 08-08 ity of ophthalmic 00:00: [place] drops Medical [...] 00:00: [place] drops 00 [facility] latanoprost 2022-0 Yes Univer s 0.005 % 4-27 ity [...] ophthalmic 00:00: [place] drops 00 [facility] Clobetasol 2-0 Yes [id number] Apply to [facility] Propionate 4-21 area(s) ity of 0.05 % 00:00: weekly. [place] shampoo 00 [facility] Clobetasol 2-0 Yes [id number] Apply to [facility] Propionate 4-21 area(s) ity of 0.05 % 00:00: weekly. [place] shampoo 00 [facility] Clobetasol 2-0 Yes [id number] Apply to [facility] Propionate 4-21 area(s) ity of 0.05 % 00:00: weekly. [place] shampoo 00 [facility] Clobetasol 2-0 Yes [id number] Apply to [facility] Propionate 4-21 area(s) ity of 0.05 % 00:00: weekly. [place] shampoo 00 [facility] Clobetasol 2-0 Yes [id number] Apply to [facility] Propionate 4-21 area(s) ity of 0.05 % 00:00: weekly. [place] shampoo 00 [facility] Clobetasol 2-0 Yes [id number] Apply to [facility] Propionate 4-21 area(s) ity of 0.05 % 00:00: weekly. [place] shampoo 00 [facility] Clobetasol 2-0 Yes [id number] Apply to [facility] Propionate 4-21 area(s) ity of 0.05 % 00:00: weekly. [place] shampoo 00 [facility] Clobetasol 2-0 Yes [id number] Apply to [facility] Propionate 4-21 area(s) ity of 0.05 % 00:00: weekly. [place] shampoo 00 [facility] Clobetasol 2-0 Yes [id number] Apply to [facility] Propionate 4-21 area(s) ity of 0.05 % 00:00: weekly. [place] shampoo 00 [facility] Clobetasol 2-0 Yes [id number] Apply to [facility] Propionate 4-21 area(s) ity of 0.05 % 00:00: weekly. [place] shampoo 00 [facility] Clobetasol 2-0 Yes [id number] Apply to [facility] Propionate 4-21 area(s) ity of 0.05 % 00:00: weekly. [place] shampoo 00 [facility] Clobetasol 2-0 Yes [id number] Apply to [facility] Propionate 4-21 area(s) ity of 0.05 % 00:00: weekly. [place] shampoo 00 [facility] Clobetasol 2-0 Yes [id number] Apply to [facility] Propionate 4-21 area(s) ity of 0.05 % 00:00: weekly. [place] shampoo 00 [facility] Clobetasol 2-0 Yes [id number] Apply to [facility] Propionate 4-21 area(s) ity of 0.05 % 00:00: weekly. [place] shampoo 00 [facility] Clobetasol 2021-0 Yes [id number] Apply to [facility] Propionate 4-21 area(s) ity of 0.05 % 00:00: weekly. [place] shampoo 00 [facility] Clobetasol 2021-0 Yes [id number] Apply to [facility] Propionate 4-21 area(s) ity of 0.05 % 00:00: weekly. [place] shampoo 00 [facility] Clobetasol 2-0 Yes [id number] Apply to [facility] Propionate 4-21 area(s) ity of 0.05 % 00:00: weekly. [place] shampoo 00 [facility] Clobetasol 2-0 Yes [id number] Apply to [facility] Propionate 4-21 area(s) ity of 0.05 % 00:00: weekly. [place] shampoo 00 [facility] Clobetasol 2-0 Yes [id number] Apply to [facility] Propionate 4-21 area(s) ity of 0.05 % 00:00: weekly. [place] shampoo 00 [facility] Clobetasol 2-0 Yes [id number] Apply to [facility] Propionate 4-21 area(s) ity of 0.05 % 00:00: weekly. [place] shampoo 00 [facility] Clobetasol 2-0 Yes [id number] Apply to [facility] Propionate 4-21 area(s) ity of 0.05 % 00:00: weekly. [place] shampoo 00 [facility] Clobetasol 2-0 Yes [id number] Apply to [facility] Propionate 4-21 area(s) ity of 0.05 % 00:00: weekly. [place] shampoo 00 [facility] Clobetasol 2-0 Yes [id number] Apply to [facility] Propionate 4-21 area(s) ity of 0.05 % 00:00: weekly. [place] shampoo 00 [facility] Clobetasol 2022-0 Yes [id number] Apply to [facility] Propionate 4-21 area(s) ity of 0.05 % 00:00: weekly. [place] shampoo 00 [facility] Clobetasol 2-0 Yes [id number] Apply to [facility] Propionate 4-21 area(s) ity of 0.05 % 00:00: weekly. [place] shampoo 00 [facility] Clobetasol 2-0 Yes [id number] Apply to [facility] Propionate 4-21 area(s) ity of 0.05 % 00:00: weekly. [place] shampoo 00 [facility] Clobetasol 2-0 Yes [id number] Apply to [facility] Propionate 4-21 area(s) ity of 0.05 % 00:00: weekly. [place] shampoo 00 [facility] Clobetasol 2-0 Yes [id number] Apply to [facility] Propionate 4-21 area(s) ity of 0.05 % 00:00: weekly. [place] shampoo 00 [facility] Clobetasol 2-0 Yes [id number] Apply to [facility] Propionate 4-21 area(s) ity of 0.05 % 00:00: weekly. [place] shampoo 00 [facility] Clobetasol 2-0 Yes [id number] Apply to [facility] Propionate 4-21 area(s) ity of 0.05 % 00:00: weekly. [place] shampoo 00 [facility] Clobetasol 2-0 Yes [id number] Apply to [facility] Propionate 4-21 area(s) ity of 0.05 % 00:00: weekly. [place] shampoo 00 [facility] Clobetasol 2-0 Yes [id number] Apply to [facility] Propionate 4-21 area(s) ity of 0.05 % 00:00: weekly. [place] shampoo 00 [facility] Clobetasol 2022-0 Yes [id number] Apply to [facility] Propionate 4-21 area(s) ity of 0.05 % 00:00: weekly. [place] shampoo 00 [facility] Clobetasol 2-0 Yes [id number] Apply to [facility] Propionate 4-21 area(s) ity of 0.05 % 00:00: weekly. [place] shampoo 00 [facility] Clobetasol 2-0 Yes [id number] Apply to [facility] Propionate 4-21 area(s) ity of 0.05 % 00:00: weekly. [place] shampoo 00 [facility] Clobetasol 2-0 Yes [id number] Apply to [facility] Propionate 4-21 area(s) ity of 0.05 % 00:00: weekly. [place] shampoo 00 [facility] Clobetasol 2-0 Yes [id number] Apply to [facility] Propionate 4-21 area(s) ity of 0.05 % 00:00: weekly. [place] shampoo 00 [facility] Clobetasol 2-0 Yes [id number] Apply to [facility] Propionate 4-21 area(s) ity of 0.05 % 00:00: weekly. [place] shampoo 00 [facility] Clobetasol 2-0 Yes [id number] Apply to [facility] Propionate 4-21 area(s) ity of 0.05 % 00:00: weekly. [place] shampoo 00 [facility] Clobetasol 2-0 Yes [id number] Apply to [facility] Propionate 4-21 area(s) ity of 0.05 % 00:00: weekly. [place] shampoo 00 [facility] Clobetasol 2-0 Yes [id number] Apply to [facility] Propionate 4-21 area(s) ity of 0.05 % 00:00: weekly. [place] shampoo 00 [facility] Clobetasol 2-0 Yes [id number] Apply to [facility] Propionate 4-21 area(s) ity of 0.05 % 00:00: weekly. [place] shampoo 00 [facility] Clobetasol 2-0 Yes [id number] Apply to [facility] Propionate 4-21 area(s) ity of 0.05 % 00:00: weekly. [place] [facility]ampoo 00 [facility] Clobetasol 2-0 Yes [id number] Apply to [facility] Propionate 4-21 area(s) ity of 0.05 % 00:00: weekly. [place] shampoo 00 [facility] Clobetasol 2-0 Yes [id number] Apply to [facility] Propionate 4-21 area(s) ity of 0.05 % 00:00: weekly. [place] [facility]ampoo 00 [facility] Clobetasol 2-0 Yes [id number] Apply to [facility] Propionate 4-21 area(s) ity of 0.05 % 00:00: weekly. [place] shampoo 00 [facility] Clobetasol 2021-0 Yes [id number] Apply to [facility] Propionate 4-21 area(s) ity of 0.05 % 00:00: weekly. [place] [facility]ampoo 00 [facility] Clobetasol 2021-0 Yes [id number] Apply to [facility] Propionate 4-21 area(s) ity of 0.05 % 00:00: weekly. [place] shampoo 00 [facility] Clobetasol 2021-0 Yes [id number] Apply to [facility] Propionate 4-21 area(s) ity of 0.05 % 00:00: weekly. [place] [facility]ampoo 00 [facility] Clobetasol 2021-0 Yes [id number] Apply to [facility] Propionate 4-21 area(s) ity of 0.05 % 00:00: weekly. [place] [facility]ampoo 00 [facility] Clobetasol 2021-0 Yes [id number] Apply to [facility] Propionate 4-21 area(s) ity of 0.05 % 00:00: weekly. [place] shampoo 00 [facility] Clobetasol 2021-0 Yes [id number] Apply to [facility] Propionate 4-21 area(s) ity of 0.05 % 00:00: weekly. [place] shampoo 00 [facility] Clobetasol 2021-0 Yes [id number] Apply to [facility] Propionate 4-21 area(s) ity of 0.05 % 00:00: weekly. [place] [facility]ampoo 00 [facility] Clobetasol 2-0 Yes [id number] Apply to [facility] Propionate 4-21 area(s) ity of 0.05 % 00:00: weekly. [place] shampoo 00 [facility] Clobetasol 2-0 Yes [id number] Apply to [facility] Propionate 4-21 area(s) ity of 0.05 % 00:00: weekly. [place] shampoo 00 [facility] Clobetasol 2-0 Yes [id number] Apply to [facility] Propionate 4-21 area(s) ity of 0.05 % 00:00: weekly. [place] [facility]ampoo 00 [facility] Clobetasol 2-0 Yes [id number] Apply to [facility] Propionate 4-21 area(s) ity of 0.05 % 00:00: weekly. [place] shampoo 00 [facility] Clobetasol 2022-0 Yes [id number] Apply to [facility] Propionate 4-21 area(s) ity of 0.05 % 00:00: weekly. [place] [facility]ampoo 00 [facility] Clobetasol 2-0 Yes [id number] Apply to [facility] Propionate 4-21 area(s) ity of 0.05 % 00:00: weekly. [place] [facility]ampoo 00 [facility] Clobetasol 2-0 Yes [id number] Apply to [facility] Propionate 4-21 area(s) ity of 0.05 % 00:00: weekly. [place] [facility]ampoo 00 [facility] Clobetasol 2-0 Yes [id number] Apply to [facility] Propionate 4-21 area(s) ity of 0.05 % 00:00: weekly. [place] [facility]ampoo 00 [facility] Clobetasol 2-0 Yes [id number] Apply to [facility] Propionate 4-21 area(s) ity of 0.05 % 00:00: weekly. [place] [facility]ampoo 00 [facility] Clobetasol 2-0 Yes [id number] Apply to [facility] Propionate 4-21 area(s) ity of 0.05 % 00:00: weekly. [place] shampoo 00 [facility] Clobetasol 2-0 Yes [id number] Apply to [facility] Propionate 4-21 area(s) ity of 0.05 % 00:00: weekly. [place] shampoo 00 [facility] Clobetasol 2-0 Yes [id number] Apply to [facility] Propionate 4-21 area(s) ity of 0.05 % 00:00: weekly. [place] shampoo 00 [facility] Clobetasol 2-0 Yes [id number] Apply to [facility] Propionate 4-21 area(s) ity of 0.05 % 00:00: weekly. [place] shampoo 00 [facility] Clobetasol 2022-0 Yes [id number] Apply to [facility] Propionate 4-21 area(s) ity of 0.05 % 00:00: weekly. [place] shampoo 00 [facility] Clobetasol 2-0 Yes [id number] Apply to [facility] Propionate 4-21 area(s) ity of 0.05 % 00:00: weekly. [place] shampoo 00 [facility] Clobetasol 2-0 Yes [id number] Apply to [facility] Propionate 4-21 area(s) ity of 0.05 % 00:00: weekly. [place] shampoo 00 [facility] Clobetasol 2-0 Yes [id number] Apply to [facility] Propionate 4-21 area(s) ity of 0.05 % 00:00: weekly. [place] shampoo 00 [facility] Clobetasol 2-0 Yes [id number] Apply to [facility] Propionate 4-21 area(s) ity of 0.05 % 00:00: weekly. [place] shampoo 00 [facility] Clobetasol 2-0 Yes [id number] Apply to [facility] Propionate 4-21 area(s) ity of 0.05 % 00:00: weekly. [place] shampoo 00 [facility] Clobetasol 2-0 Yes [id number] Apply to [facility] Propionate 4-21 area(s) ity of 0.05 % 00:00: weekly. [place] shampoo 00 [facility] Clobetasol 2-0 Yes [id number] Apply to [facility] Propionate 4-21 area(s) ity of 0.05 % 00:00: weekly. [place] shampoo 00 [facility] Clobetasol 2-0 Yes [id number] Apply to [facility] Propionate 4-21 area(s) ity of 0.05 % 00:00: weekly. [place] shampoo 00 [facility] Clobetasol 2-0 Yes [id number] Apply to [facility] Propionate 4-21 area(s) ity of 0.05 % 00:00: weekly. [place] shampoo 00 [facility] Clobetasol 2-0 Yes [id number] Apply to [facility] Propionate 4-21 area(s) ity of 0.05 % 00:00: weekly. [place] shampoo 00 [facility] Clobetasol 2-0 Yes [id number] Apply to [facility] Propionate 4-21 area(s) ity of 0.05 % 00:00: weekly. [place] shampoo 00 [facility] Clobetasol 2-0 Yes [id number] Apply to [facility] Propionate 4-21 area(s) ity of 0.05 % 00:00: weekly. [place] [facility]ampoo 00 [facility] Clobetasol 2-0 Yes [id number] Apply to [facility] Propionate 4-21 area(s) ity of 0.05 % 00:00: weekly. [place] shampoo 00 [facility] Clobetasol 2-0 Yes [id number] Apply to [facility] Propionate 4-21 area(s) ity of 0.05 % 00:00: weekly. [place] shampoo 00 [facility] Clobetasol 2-0 Yes [id number] Apply to [facility] Propionate 4-21 area(s) ity of 0.05 % 00:00: weekly. [place] shampoo 00 [facility] Clobetasol 2-0 Yes [id number] Apply to [facility] Propionate 4-21 area(s) ity of 0.05 % 00:00: weekly. [place] shampoo 00 [facility] Clobetasol 2-0 Yes [id number] Apply to [facility] Propionate 4-21 area(s) ity of 0.05 % 00:00: weekly. [place] shampoo 00 [facility] Clobetasol 2-0 Yes [id number] Apply to [facility] Propionate 4-21 area(s) ity of 0.05 % 00:00: weekly. [place] shampoo 00 [facility] Clobetasol 2-0 Yes [id number] Apply to [facility] Propionate 4-21 area(s) ity of 0.05 % 00:00: weekly. [place] shampoo 00 [facility] Clobetasol 2-0 Yes [id number] Apply to [facility] Propionate 4-21 area(s) ity of 0.05 % 00:00: weekly. [place] shampoo 00 [facility] Clobetasol 2-0 Yes [id number] Apply to [facility] Propionate 4-21 area(s) ity of 0.05 % 00:00: weekly. [place] shampoo 00 [facility] Clobetasol 2-0 Yes [id number] Apply to [facility] Propionate 4-21 area(s) ity of 0.05 % 00:00: weekly. [place] shampoo 00 [facility] Clobetasol 2-0 Yes [id number] Apply to [facility] Propionate 4-21 area(s) ity of 0.05 % 00:00: weekly. [place] shampoo 00 [facility] Clobetasol 2-0 Yes [id number] Apply to [facility] Propionate 4-21 area(s) ity of 0.05 % 00:00: weekly. [place] shampoo 00 [facility] Clobetasol 2022-0 Yes [id number] Apply to [facility] Propionate 4-21 area(s) ity of 0.05 % 00:00: weekly. [place] shampoo 00 [facility] Clobetasol 2022-0 Yes [id number] Apply to [facility] Propionate 4-21 area(s) ity of 0.05 % 00:00: weekly. [place] shampoo 00 [facility] Clobetasol 2022-0 Yes [id number] Apply to [facility] Propionate 4-21 area(s) ity of 0.05 % 00:00: weekly. [place] shampoo 00 [facility] Clobetasol 2-0 Yes [id number] Apply to [facility] Propionate 4-21 area(s) ity of 0.05 % 00:00: weekly. [place] shampoo 00 [facility] Clobetasol 2-0 Yes [id number] Apply to [facility] Propionate 4-21 area(s) ity of 0.05 % 00:00: weekly. [place] shampoo 00 [facility] Clobetasol 2-0 Yes [id number] Apply to [facility] Propionate 4-21 area(s) ity of 0.05 % 00:00: weekly. [place] shampoo 00 [facility] clobetasoL 2-0 Yes [id number] Apply to [facility] 0.05 % 4-14 area(s) 2 ity of external 00:00: (two) [place] solution 00 times Medical daily. Branch doxycycline 2-0 Yes [id number] 100mg Take 1 [facility] monohydrate 4-14 capsule by it y of 100 mg 00:00: mouth 2 [place] capsule 00 (two) Medical times Branch daily. clobetasoL 2022-0 Yes [id number] Apply to [facility] 0.05 % 4-14 area(s) 2 ity of external 00:00: (two) [place] solution 00 times Medical daily. Branch doxycycline 2022-0 Yes [id number] 100mg Take 1 [facility] monohydrate 4-14 capsule by it y of 100 mg 00:00: mouth 2 [place] capsule 00 (two) Medical times Branch daily. clobetasoL 2022-0 Yes [id number] Apply to [facility] 0.05 % 4-14 area(s) 2 ity of external 00:00: (two) [place] solution 00 times Medical daily. [facility] doxycycline 2022-0 Yes [id number] 100mg Take 1 [facility] monohydrate 4-14 capsule by it y of 100 mg 00:00: mouth 2 [place] capsule 00 (two) Medical times Branch daily. clobetasoL 2022-0 Yes [id number] Apply to [facility] 0.05 % 4-14 area(s) 2 ity of external 00:00: (two) [place] solution 00 times Medical daily. [facility] doxycycline 2022-0 Yes [id number] 100mg Take 1 [facility] monohydrate 4-14 capsule by it y of 100 mg 00:00: mouth 2 [place] capsule 00 (two) Medical times Branch daily. clobetasoL 2022-0 Yes [id number] Apply to [facility] 0.05 % 4-14 area(s) 2 ity of external 00:00: (two) [place] solution 00 times Medical daily. [facility] doxycycline 2022-0 Yes [id number] 100mg Take 1 [facility] monohydrate 4-14 capsule by it y of 100 mg 00:00: mouth 2 [place] capsule 00 (two) Medical times Branch daily. clobetasoL 2022-0 Yes [id number] Apply to [facility] 0.05 % 4-14 area(s) 2 ity of external 00:00: (two) [place] solution 00 times Medical daily. Branch doxycycline 2022-0 Yes [id number] 100mg Take 1 [facility] monohydrate 4-14 capsule by it y of 100 mg 00:00: mouth 2 [place] capsule 00 (two) Medical times Branch daily. clobetasoL 2022-0 Yes [id number] Apply to [facility] 0.05 % 4-14 area(s) 2 ity of external 00:00: (two) [place] solution 00 times Medical daily. Branch doxycycline 2022-0 Yes [id number] 100mg Take 1 [facility] monohydrate 4-14 capsule by it y of 100 mg 00:00: mouth 2 [place] capsule 00 (two) Medical times Branch daily. clobetasoL 2022-0 Yes [id number] Apply to [facility] 0.05 % 4-14 area(s) 2 ity of external 00:00: (two) [place] solution 00 times Medical daily. [facility] doxycycline 2022-0 Yes [id number] 100mg Take 1 [facility] monohydrate 4-14 capsule by it y of 100 mg 00:00: mouth 2 [place] capsule 00 (two) Medical times Branch daily. clobetasoL 2022-0 Yes [id number] Apply to [facility] 0.05 % 4-14 area(s) 2 ity of external 00:00: (two) [place] solution 00 times Medical daily. [facility] doxycycline 2022-0 Yes [id number] 100mg Take 1 [facility] monohydrate 4-14 capsule by it y of 100 mg 00:00: mouth 2 [place] capsule 00 (two) Medical times Branch daily. clobetasoL 2022-0 Yes [id number] Apply to [facility] 0.05 % 4-14 area(s) 2 ity of external 00:00: (two) [place] solution 00 times Medical daily. [facility] doxycycline 2-0 Yes [id number] 100mg Take 1 [facility] monohydrate 4-14 capsule by it y of 100 mg 00:00: mouth 2 [place] capsule 00 (two) Medical times Branch daily. clobetasoL 2022-0 Yes [id number] Apply to [facility] 0.05 % 4-14 area(s) 2 ity of external 00:00: (two) [place] solution 00 times Medical daily. [facility] doxycycline 2-0 Yes [id number] 100mg Take 1 [facility] monohydrate 4-14 capsule by it y of 100 mg 00:00: mouth 2 [place] capsule 00 (two) Medical times Branch daily. clobetasoL 2022-0 Yes [id number] Apply to [facility] 0.05 % 4-14 area(s) 2 ity of external 00:00: (two) [place] solution 00 times Medical daily. [facility] doxycycline 2022-0 Yes [id number] 100mg Take 1 [facility] monohydrate 4-14 capsule by it y of 100 mg 00:00: mouth 2 [place] capsule 00 (two) Medical times Branch daily. clobetasoL 2022-0 Yes [id number] Apply to [facility] 0.05 % 4-14 area(s) 2 ity of external 00:00: (two) [place] solution 00 times Medical daily. Branch doxycycline 2022-0 Yes [id number] 100mg Take 1 [facility] monohydrate 4-14 capsule by it y of 100 mg 00:00: mouth 2 [place] capsule 00 (two) Medical times Branch daily. clobetasoL 2022-0 Yes [id number] Apply to [facility] 0.05 % 4-14 area(s) 2 ity of external 00:00: (two) [place] solution 00 times Medical daily. [facility] doxycycline 2022-0 Yes [id number] 100mg Take 1 [facility] monohydrate 4-14 capsule by it y of 100 mg 00:00: mouth 2 [place] capsule 00 (two) Medical times Branch daily. clobetasoL 2022-0 Yes [id number] Apply to [facility] 0.05 % 4-14 area(s) 2 ity of external 00:00: (two) [place] solution 00 times Medical daily. [facility] doxycycline 2022-0 Yes [id number] 100mg Take 1 [facility] monohydrate 4-14 capsule by it y of 100 mg 00:00: mouth 2 [place] capsule 00 (two) Medical times Branch daily. clobetasoL 2022-0 Yes [id number] Apply to [facility] 0.05 % 4-14 area(s) 2 ity of external 00:00: (two) [place] solution 00 times Medical daily. [facility] doxycycline 2-0 Yes [id number] 100mg Take 1 [facility] monohydrate 4-14 capsule by it y of 100 mg 00:00: mouth 2 [place] capsule 00 (two) Medical times Branch daily. clobetasoL 2022-0 Yes [id number] Apply to [facility] 0.05 % 4-14 area(s) 2 ity of external 00:00: (two) [place] solution 00 times Medical daily. [facility] doxycycline 2022-0 Yes [id number] 100mg Take 1 [facility] monohydrate 4-14 capsule by it y of 100 mg 00:00: mouth 2 [place] capsule 00 (two) Medical times Branch daily. clobetasoL 2022-0 Yes [id number] Apply to [facility] 0.05 % 4-14 area(s) 2 ity of external 00:00: (two) [place] solution 00 times Medical daily. [facility] doxycycline 2022-0 Yes [id number] 100mg Take 1 [facility] monohydrate 4-14 capsule by it y of 100 mg 00:00: mouth 2 [place] capsule 00 (two) Medical times Branch daily. clobetasoL 2022-0 Yes [id number] Apply to [facility] 0.05 % 4-14 area(s) 2 ity of external 00:00: (two) [place] solution 00 times Medical daily. [facility] doxycycline 2022-0 Yes [id number] 100mg Take 1 [facility] monohydrate 4-14 capsule by it y of 100 mg 00:00: mouth 2 [place] capsule 00 (two) Medical times Branch daily. clobetasoL 2022-0 Yes [id number] Apply to [facility] 0.05 % 4-14 area(s) 2 ity of external 00:00: (two) [place] solution 00 times Medical daily. [facility] doxycycline 2022-0 Yes [id number] 100mg Take 1 [facility] monohydrate 4-14 capsule by it y of 100 mg 00:00: mouth 2 [place] capsule 00 (two) Medical times Branch daily. clobetasoL 2022-0 Yes [id number] Apply to [facility] 0.05 % 4-14 area(s) 2 ity of external 00:00: (two) [place] solution 00 times Medical daily. [facility] doxycycline 2-0 Yes [id number] 100mg Take 1 [facility] monohydrate 4-14 capsule by it y of 100 mg 00:00: mouth 2 [place] capsule 00 (two) Medical times Branch daily. clobetasoL 2022-0 Yes [id number] Apply to [facility] 0.05 % 4-14 area(s) 2 ity of external 00:00: (two) [place] solution 00 times Medical daily. [facility] doxycycline 2-0 Yes [id number] 100mg Take 1 [facility] monohydrate 4-14 capsule by it y of 100 mg 00:00: mouth 2 [place] capsule 00 (two) Medical times Branch daily. clobetasoL 2022-0 Yes [id number] Apply to [facility] 0.05 % 4-14 area(s) 2 ity of external 00:00: (two) [place] solution 00 times Medical daily. Branch doxycycline 2022-0 Yes [id number] 100mg Take 1 [facility] monohydrate 4-14 capsule by it y of 100 mg 00:00: mouth 2 [place] capsule 00 (two) Medical times Branch daily. clobetasoL 2022-0 Yes [id number] Apply to [facility] 0.05 % 4-14 area(s) 2 ity of external 00:00: (two) [place] solution 00 times Medical daily. Branch doxycycline 2022-0 Yes [id number] 100mg Take 1 [facility] monohydrate 4-14 capsule by it y of 100 mg 00:00: mouth 2 [place] capsule 00 (two) Medical times Branch daily. clobetasoL 2022-0 Yes [id number] Apply to [facility] 0.05 % 4-14 area(s) 2 ity of external 00:00: (two) [place] solution 00 times Medical daily. [facility] doxycycline 2-0 Yes [id number] 100mg Take 1 [facility] monohydrate 4-14 capsule by it y of 100 mg 00:00: mouth 2 [place] capsule 00 (two) Medical times Branch daily. clobetasoL 2022-0 Yes [id number] Apply to [facility] 0.05 % 4-14 area(s) 2 ity of external 00:00: (two) [place] solution 00 times Medical daily. Branch doxycycline 2022-0 Yes [id number] 100mg Take 1 [facility] monohydrate 4-14 capsule by it y of 100 mg 00:00: mouth 2 [place] capsule 00 (two) Medical times Branch daily. clobetasoL 2022-0 Yes [id number] Apply to [facility] 0.05 % 4-14 area(s) 2 ity of external 00:00: (two) [place] solution 00 times Medical daily. [facility] doxycycline 2-0 Yes [id number] 100mg Take 1 [facility] monohydrate 4-14 capsule by it y of 100 mg 00:00: mouth 2 [place] capsule 00 (two) Medical times Branch daily. clobetasoL 2022-0 Yes [id number] Apply to [facility] 0.05 % 4-14 area(s) 2 ity of external 00:00: (two) [place] solution 00 times Medical daily. [facility] doxycycline 2-0 Yes [id number] 100mg Take 1 [facility] monohydrate 4-14 capsule by it y of 100 mg 00:00: mouth 2 [place] capsule 00 (two) Medical times Branch daily. clobetasoL 2022-0 Yes [id number] Apply to [facility] 0.05 % 4-14 area(s) 2 ity of external 00:00: (two) [place] solution 00 times Medical daily. Branch doxycycline 2022-0 Yes [id number] 100mg Take 1 [facility] monohydrate 4-14 capsule by it y of 100 mg 00:00: mouth 2 [place] capsule 00 (two) Medical times Branch daily. clobetasoL 2022-0 Yes [id number] Apply to [facility] 0.05 % 4-14 area(s) 2 ity of external 00:00: (two) [place] solution 00 times Medical daily. Branch doxycycline 2022-0 Yes [id number] 100mg Take 1 [facility] monohydrate 4-14 capsule by it y of 100 mg 00:00: mouth 2 [place] capsule 00 (two) Medical times Branch daily. clobetasoL 2022-0 Yes [id number] Apply to [facility] 0.05 % 4-14 area(s) 2 ity of external 00:00: (two) [place] solution 00 times Medical daily. Branch doxycycline 2022-0 Yes [id number] 100mg Take 1 [facility] monohydrate 4-14 capsule by it y of 100 mg 00:00: mouth 2 [place] capsule 00 (two) Medical times Branch daily. clobetasoL 2022-0 Yes [id number] Apply to [facility] 0.05 % 4-14 area(s) 2 ity of external 00:00: (two) [place] solution 00 times Medical daily. [facility] doxycycline 2-0 Yes [id number] 100mg Take 1 [facility] monohydrate 4-14 capsule by it y of 100 mg 00:00: mouth 2 [place] capsule 00 (two) Medical times Branch daily. clobetasoL 2022-0 Yes [id number] Apply to [facility] 0.05 % 4-14 area(s) 2 ity of external 00:00: (two) [place] solution 00 times Medical daily. [facility] doxycycline 2-0 Yes [id number] 100mg Take 1 [facility] monohydrate 4-14 capsule by it y of 100 mg 00:00: mouth 2 [place] capsule 00 (two) Medical times Branch daily. clobetasoL 2022-0 Yes [id number] Apply to [facility] 0.05 % 4-14 area(s) 2 ity of external 00:00: (two) [place] solution 00 times Medical daily. Branch doxycycline 2022-0 Yes [id number] 100mg Take 1 [facility] monohydrate 4-14 capsule by it y of 100 mg 00:00: mouth 2 [place] capsule 00 (two) Medical times Branch daily. clobetasoL 2022-0 Yes [id number] Apply to [facility] 0.05 % 4-14 area(s) 2 ity of external 00:00: (two) [place] solution 00 times Medical daily. Branch doxycycline 2022-0 Yes [id number] 100mg Take 1 [facility] monohydrate 4-14 capsule by it y of 100 mg 00:00: mouth 2 [place] capsule 00 (two) Medical times Branch daily. clobetasoL 2022-0 Yes [id number] Apply to [facility] 0.05 % 4-14 area(s) 2 ity of external 00:00: (two) [place] solution 00 times Medical daily. Branch doxycycline 2022-0 Yes [id number] 100mg Take 1 [facility] monohydrate 4-14 capsule by it y of 100 mg 00:00: mouth 2 [place] capsule 00 (two) Medical times Branch daily. clobetasoL 2022-0 Yes [id number] Apply to [facility] 0.05 % 4-14 area(s) 2 ity of external 00:00: (two) [place] solution 00 times Medical daily. Branch doxycycline 2022-0 Yes [id number] 100mg Take 1 [facility] monohydrate 4-14 capsule by it y of 100 mg 00:00: mouth 2 [place] capsule 00 (two) Medical times Branch daily. clobetasoL 2022-0 Yes [id number] Apply to [facility] 0.05 % 4-14 area(s) 2 ity of external 00:00: (two) [place] solution 00 times Medical daily. Branch doxycycline 2-0 Yes [id number] 100mg Take 1 [facility] monohydrate 4-14 capsule by it y of 100 mg 00:00: mouth 2 [place] capsule 00 (two) Medical times Branch daily. clobetasoL 2022-0 Yes [id number] Apply to [facility] 0.05 % 4-14 area(s) 2 ity of external 00:00: (two) [place] solution 00 times Medical daily. Branch doxycycline 2-0 Yes [id number] 100mg Take 1 [facility] monohydrate 4-14 capsule by it y of 100 mg 00:00: mouth 2 [place] capsule 00 (two) Medical times Branch daily. clobetasoL 2022-0 Yes [id number] Apply to [facility] 0.05 % 4-14 area(s) 2 ity of external 00:00: (two) [place] solution 00 times Medical daily. Branch doxycycline 2022-0 Yes [id number] 100mg Take 1 [facility] monohydrate 4-14 capsule by it y of 100 mg 00:00: mouth 2 [place] capsule 00 (two) Medical times Branch daily. clobetasoL 2022-0 Yes [id number] Apply to [facility] 0.05 % 4-14 area(s) 2 ity of external 00:00: (two) [place] solution 00 times Medical daily. Branch doxycycline 2022-0 Yes [id number] 100mg Take 1 [facility] monohydrate 4-14 capsule by it y of 100 mg 00:00: mouth 2 [place] capsule 00 (two) Medical times Branch daily. clobetasoL 2022-0 Yes [id number] Apply to [facility] 0.05 % 4-14 area(s) 2 ity of external 00:00: (two) [place] solution 00 times Medical daily. Branch doxycycline 2022-0 Yes [id number] 100mg Take 1 [facility] monohydrate 4-14 capsule by it y of 100 mg 00:00: mouth 2 [place] capsule 00 (two) Medical times Branch daily. clobetasoL 2022-0 Yes [id number] Apply to [facility] 0.05 % 4-14 area(s) 2 ity of external 00:00: (two) [place] solution 00 times Medical daily. Branch doxycycline 2022-0 Yes [id number] 100mg Take 1 [facility] monohydrate 4-14 capsule by it y of 100 mg 00:00: mouth 2 [place] capsule 00 (two) Medical times Branch daily. clobetasoL 2022-0 Yes [id number] Apply to [facility] 0.05 % 4-14 area(s) 2 ity of external 00:00: (two) [place] solution 00 times Medical daily. Branch doxycycline 2022-0 Yes [id number] 100mg Take 1 [facility] monohydrate 4-14 capsule by it y of 100 mg 00:00: mouth 2 [place] capsule 00 (two) Medical times Branch daily. clobetasoL 2022-0 Yes [id number] Apply to [facility] 0.05 % 4-14 area(s) 2 ity of external 00:00: (two) [place] solution 00 times Medical daily. Branch doxycycline 2022-0 Yes [id number] 100mg Take 1 [facility] monohydrate 4-14 capsule by it y of 100 mg 00:00: mouth 2 [place] capsule 00 (two) Medical times Branch daily. clobetasoL 2022-0 Yes [id number] Apply to [facility] 0.05 % 4-14 area(s) 2 ity of external 00:00: (two) [place] solution 00 times Medical daily. Branch doxycycline 2022-0 Yes [id number] 100mg Take 1 [facility] monohydrate 4-14 capsule by it y of 100 mg 00:00: mouth 2 [place] capsule 00 (two) Medical times Branch daily. clobetasoL 2022-0 Yes [id number] Apply to [facility] 0.05 % 4-14 area(s) 2 ity of external 00:00: (two) [place] solution 00 times Medical daily. Branch doxycycline 2-0 Yes [id number] 100mg Take 1 [facility] monohydrate 4-14 capsule by it y of 100 mg 00:00: mouth 2 [place] capsule 00 (two) Medical times Branch daily. clobetasoL 2022-0 Yes [id number] Apply to [facility] 0.05 % 4-14 area(s) 2 ity of external 00:00: (two) [place] solution 00 times Medical daily. Branch doxycycline 2022-0 Yes [id number] 100mg Take 1 [facility] monohydrate 4-14 capsule by it y of 100 mg 00:00: mouth 2 [place] capsule 00 (two) Medical times Branch daily. clobetasoL 2022-0 Yes [id number] Apply to [facility] 0.05 % 4-14 area(s) 2 ity of external 00:00: (two) [place] solution 00 times Medical daily. Branch doxycycline 2-0 Yes [id number] 100mg Take 1 [facility] monohydrate 4-14 capsule by it y of 100 mg 00:00: mouth 2 [place] capsule 00 (two) Medical times Branch daily. clobetasoL 2022-0 Yes [id number] Apply to [facility] 0.05 % 4-14 area(s) 2 ity of external 00:00: (two) [place] solution 00 times Medical daily. Branch doxycycline 2022-0 Yes [id number] 100mg Take 1 [facility] monohydrate 4-14 capsule by it y of 100 mg 00:00: mouth 2 [place] capsule 00 (two) Medical times Branch daily. clobetasoL 2022-0 Yes [id number] Apply to [facility] 0.05 % 4-14 area(s) 2 ity of external 00:00: (two) [place] solution 00 times Medical daily. Branch doxycycline 2022-0 Yes [id number] 100mg Take 1 [facility] monohydrate 4-14 capsule by it y of 100 mg 00:00: mouth 2 [place] capsule 00 (two) Medical times Branch daily. clobetasoL 2022-0 Yes [id number] Apply to [facility] 0.05 % 4-14 area(s) 2 ity of external 00:00: (two) [place] solution 00 times Medical daily. Branch doxycycline 2022-0 Yes [id number] 100mg Take 1 [facility] monohydrate 4-14 capsule by it y of 100 mg 00:00: mouth 2 [place] capsule 00 (two) Medical times Branch daily. clobetasoL 2022-0 Yes [id number] Apply to [facility] 0.05 % 4-14 area(s) 2 ity of external 00:00: (two) [place] solution 00 times Medical daily. Branch doxycycline 2022-0 Yes [id number] 100mg Take 1 [facility] monohydrate 4-14 capsule by it y of 100 mg 00:00: mouth 2 [place] capsule 00 (two) Medical times Branch daily. clobetasoL 2022-0 Yes [id number] Apply to [facility] 0.05 % 4-14 area(s) 2 ity of external 00:00: (two) [place] solution 00 times Medical daily. Branch doxycycline 2-0 Yes [id number] 100mg Take 1 [facility] monohydrate 4-14 capsule by it y of 100 mg 00:00: mouth 2 [place] capsule 00 (two) Medical times Branch daily. clobetasoL 2022-0 Yes [id number] Apply to [facility] 0.05 % 4-14 area(s) 2 ity of external 00:00: (two) [place] solution 00 times Medical daily. Branch doxycycline 2-0 Yes [id number] 100mg Take 1 [facility] monohydrate 4-14 capsule by it y of 100 mg 00:00: mouth 2 [place] capsule 00 (two) Medical times Branch daily. clobetasoL 2022-0 Yes [id number] Apply to [facility] 0.05 % 4-14 area(s) 2 ity of external 00:00: (two) [place] solution 00 times Medical daily. Branch doxycycline 2022-0 Yes [id number] 100mg Take 1 [facility] monohydrate 4-14 capsule by it y of 100 mg 00:00: mouth 2 [place] capsule 00 (two) Medical times Branch daily. clobetasoL 2022-0 Yes [id number] Apply to [facility] 0.05 % 4-14 area(s) 2 ity of external 00:00: (two) [place] solution 00 times Medical daily. Branch doxycycline 2022-0 Yes [id number] 100mg Take 1 [facility] monohydrate 4-14 capsule by it y of 100 mg 00:00: mouth 2 [place] capsule 00 (two) Medical times Branch daily. clobetasoL 2022-0 Yes [id number] Apply to [facility] 0.05 % 4-14 area(s) 2 ity of external 00:00: (two) [place] solution 00 times Medical daily. Branch doxycycline 2022-0 Yes [id number] 100mg Take 1 [facility] monohydrate 4-14 capsule by it y of 100 mg 00:00: mouth 2 [place] capsule 00 (two) Medical times Branch daily. clobetasoL 2022-0 Yes [id number] Apply to [facility] 0.05 % 4-14 area(s) 2 ity of external 00:00: (two) [place] solution 00 times Medical daily. Branch doxycycline 2022-0 Yes [id number] 100mg Take 1 [facility] monohydrate 4-14 capsule by it y of 100 mg 00:00: mouth 2 [place] capsule 00 (two) Medical times Branch daily. clobetasoL 2022-0 Yes [id number] Apply to [facility] 0.05 % 4-14 area(s) 2 ity of external 00:00: (two) [place] solution 00 times Medical daily. Branch doxycycline 2-0 Yes [id number] 100mg Take 1 [facility] monohydrate 4-14 capsule by it y of 100 mg 00:00: mouth 2 [place] capsule 00 (two) Medical times Branch daily. clobetasoL 2022-0 Yes [id number] Apply to [facility] 0.05 % 4-14 area(s) 2 ity of external 00:00: (two) [place] solution 00 times Medical daily. Branch doxycycline 2022-0 Yes [id number] 100mg Take 1 [facility] monohydrate 4-14 capsule by it y of 100 mg 00:00: mouth 2 [place] capsule 00 (two) Medical times Branch daily. clobetasoL 2022-0 Yes [id number] Apply to [facility] 0.05 % 4-14 area(s) 2 ity of external 00:00: (two) [place] solution 00 times Medical daily. Branch doxycycline 2022-0 Yes [id number] 100mg Take 1 [facility] monohydrate 4-14 capsule by it y of 100 mg 00:00: mouth 2 [place] capsule 00 (two) Medical times Branch daily. clobetasoL 2022-0 Yes [id number] Apply to [facility] 0.05 % 4-14 area(s) 2 ity of external 00:00: (two) [place] solution 00 times Medical daily. Branch clobetasoL 2022-0 Yes [id number] Apply to [facility] 0.05 % 4-14 area(s) 2 ity of external 00:00: (two) [place] solution 00 times Medical daily. Branch clobetasoL 2022-0 Yes [id number] Apply to [facility] 0.05 % 4-14 area(s) 2 ity of external 00:00: (two) [place] solution 00 times Medical daily. Branch clobetasoL 2022-0 Yes [id number] Apply to [facility] 0.05 % 4-14 area(s) 2 ity of external 00:00: (two) [place] solution 00 times Medical daily. Branch clobetasoL 2022-0 Yes [id number] Apply to [facility] 0.05 % 4-14 area(s) 2 ity of external 00:00: (two) [place] solution 00 times Medical daily. Branch clobetasoL 2022-0 Yes [id number] Apply to [facility] 0.05 % 4-14 area(s) 2 ity of external 00:00: (two) [place] solution 00 times Medical daily. Branch clobetasoL 2022-0 Yes [id number] Apply to [facility] 0.05 % 4-14 area(s) 2 ity of external 00:00: (two) [place] solution 00 times Medical daily. Branch clobetasoL 2022-0 Yes [id number] Apply to [facility] 0.05 % 4-14 area(s) 2 ity of external 00:00: (two) [place] solution 00 times Medical daily. Branch clobetasoL 2022-0 Yes [id number] Apply to [facility] 0.05 % 4-14 area(s) 2 ity of external 00:00: (two) [place] solution 00 times Medical daily. Branch clobetasoL 2022-0 Yes [id number] Apply to [facility] 0.05 % 4-14 area(s) 2 ity of external 00:00: (two) [place] solution 00 times Medical daily. Branch clobetasoL 2022-0 Yes [id number] Apply to [facility] 0.05 % 4-14 area(s) 2 ity of external 00:00: (two) [place] solution 00 times Medical daily. Branch clobetasoL 2022-0 Yes [id number] Apply to [facility] 0.05 % 4-14 area(s) 2 ity of external 00:00: (two) [place] solution 00 times Medical daily. Branch clobetasoL 2022-0 Yes [id number] Apply to [facility] 0.05 % 4-14 area(s) 2 ity of external 00:00: (two) [place] solution 00 times Medical daily. Branch clobetasoL 2022-0 Yes [id number] Apply to [facility] 0.05 % 4-14 area(s) 2 ity of external 00:00: (two) [place] solution 00 times Medical daily. Branch clobetasoL 2022-0 Yes [id number] Apply to [facility] 0.05 % 4-14 area(s) 2 ity of external 00:00: (two) [place] solution 00 times Medical daily. Branch clobetasoL 2022-0 Yes [id number] Apply to [facility] 0.05 % 4-14 area(s) 2 ity of external 00:00: (two) [place] solution 00 times Medical daily. Branch clobetasoL 2022-0 Yes [id number] Apply to [facility] 0.05 % 4-14 area(s) 2 ity of external 00:00: (two) [place] solution 00 times Medical daily. Branch clobetasoL 2022-0 Yes [id number] Apply to [facility] 0.05 % 4-14 area(s) 2 ity of external 00:00: (two) [place] solution 00 times Medical daily. Branch clobetasoL 2022-0 Yes [id number] Apply to [facility] 0.05 % 4-14 area(s) 2 ity of external 00:00: (two) [place] solution 00 times Medical daily. Branch clobetasoL 2022-0 Yes [id number] Apply to [facility] 0.05 % 4-14 area(s) 2 ity of external 00:00: (two) [place] solution 00 times Medical daily. Branch clobetasoL 2022-0 Yes [id number] Apply to [facility] 0.05 % 4-14 area(s) 2 ity of external 00:00: (two) [place] solution 00 times Medical daily. Branch clobetasoL 2022-0 Yes [id number] Apply to [facility] 0.05 % 4-14 area(s) 2 ity of external 00:00: (two) [place] solution 00 times Medical daily. Branch clobetasoL 2022-0 Yes [id number] Apply to [facility] 0.05 % 4-14 area(s) 2 ity of external 00:00: (two) [place] solution 00 times Medical daily. Branch clobetasoL 2022-0 Yes [id number] Apply to [facility] 0.05 % 4-14 area(s) 2 ity of external 00:00: (two) [place] solution 00 times Medical daily. Branch clobetasoL 2022-0 Yes [id number] Apply to [facility] 0.05 % 4-14 area(s) 2 ity of external 00:00: (two) [place] solution 00 times Medical daily. Branch clobetasoL 2022-0 Yes [id number] Apply to [facility] 0.05 % 4-14 area(s) 2 ity of external 00:00: (two) [place] solution 00 times Medical daily. Branch clobetasoL 2022-0 Yes [id number] Apply to [facility] 0.05 % 4-14 area(s) 2 ity of external 00:00: (two) [place] solution 00 times Medical daily. Branch clobetasoL 2022-0 Yes [id number] Apply to [facility] 0.05 % 4-14 area(s) 2 ity of external 00:00: (two) [place] solution 00 times Medical daily. Branch clobetasoL 2022-0 Yes [id number] Apply to [facility] 0.05 % 4-14 area(s) 2 ity of external 00:00: (two) [place] solution 00 times Medical daily. Branch clobetasoL 2022-0 Yes [id number] Apply to [facility] 0.05 % 4-14 area(s) 2 ity of external 00:00: (two) [place] solution 00 times Medical daily. Branch clobetasoL 2022-0 Yes [id number] Apply to [facility] 0.05 % 4-14 area(s) 2 ity of external 00:00: (two) [place] solution 00 times Medical daily. Branch clobetasoL 2022-0 Yes [id number] Apply to [facility] 0.05 % 4-14 area(s) 2 ity of external 00:00: (two) [place] solution 00 times Medical daily. Branch clobetasoL 2022-0 Yes [id number] Apply to [facility] 0.05 % 4-14 area(s) 2 ity of external 00:00: (two) [place] solution 00 times Medical daily. Branch clobetasoL Yes [id number] Apply to [facility] 0.05 % 4-14 area(s) 2 ity of external 00:00: (two) [place] solution 00 times Medical daily. Branch clobetasoL Yes [id number] Apply to [facility] 0.05 % 4-14 area(s) 2 ity of external 00:00: (two) [place] solution 00 times Medical daily. Branch doxycycline 2022- No [id number] 100mg Take 1 [facility] monohydrate 4-14 - capsule by i ty of 100 mg 00:00: 00:00 mouth 2 [place] capsule 00 :00 (two) Medical times Branch daily. ROSUVASTATI Yes [id number] TAKE 1 [facility] N 20 mg 4-04 TABLET BY ity of tablet 00:00: MOUTH AT [place] 00 BEDTIME, Medical STOP Branch TAKING ATORVASTAT IN ROSUVASTATI Yes [id number] TAKE 1 [facility] N 20 mg 4-04 TABLET BY ity of tablet 00:00: MOUTH AT [place] 00 BEDTIME, Medical STOP Branch TAKING ATORVASTAT IN ROSUVASTATI Yes [id number] TAKE 1 [facility] N 20 mg 4-04 TABLET BY ity of tablet 00:00: MOUTH AT [place] 00 BEDTIME, Medical STOP Branch TAKING ATORVASTAT IN ROSUVASTATI 2021- No [id number] TAKE 1 [facility] N 20 mg 4-04 08-21 TABLET BY ity of tablet 00:00: 00:00 MOUTH AT [place] 00 :00 BEDTIME, Medical STOP Branch TAKING ATORVASTAT IN ROSUVASTATI 2021- No [id number] TAKE 1 [facility] N 20 mg 4-04 08-21 TABLET BY ity of tablet 00:00: 00:00 MOUTH AT [place] 00 :00 BEDTIME, Medical STOP Branch TAKING ATORVASTAT IN dapaglifloz Yes [id number] 10mg Take 1 [facility] in 3-30 tablet by ity of (FARXIGA) 00:00: mouth [place] 10 mg 00 daily. Medical tablet Branch Insulin Yes [id number] Use as [facility] ers [place], 3-30 directed ity of Disposable, 00:00: to inject [place] (PEN 00 insulin Medical NEEDLE) 31 once Branch gauge x daily; 08/27" Ndle ICD-10 code E11.65 dapaglifloz 2021-0 Yes [id number] 10mg Take 1 [facility] in 3-30 tablet by ity of (FARXIGA) 00:00: mouth [place] 10 mg 00 daily. Medical tablet Branch Insulin 0 Yes [id number] Use as [facility] ers [place], 3-30 directed ity of Disposable, 00:00: to inject [place] (PEN 00 insulin Medical NEEDLE) 31 once Branch gauge x daily; 08/27" Ndle ICD-10 code E11.65 dapaglifloz 2021-0 Yes [id number] 10mg Take 1 [facility] in 3-30 tablet by ity of (FARXIGA) 00:00: mouth [place] 10 mg 00 daily. Medical tablet Branch Insulin 0 Yes [id number] Use as [facility] [place], 3-30 directed ity of Disposable, 00:00: to inject [place] (PEN 00 insulin Medical NEEDLE) 31 once Branch gauge x daily; 08/27" Ndle ICD-10 code E11.65 dapaglifloz 2021-0 Yes [id number] 10mg Take 1 [facility] in 3-30 tablet by ity of (FARXIGA) 00:00: mouth [place] 10 mg 00 daily. Medical tablet Branch Insulin 0 Yes [id number] Use as [facility] [place], 3-30 directed ity of Disposable, 00:00: to inject [place] (PEN 00 insulin Medical NEEDLE) 31 once Branch gauge x daily; 08/27" Ndle ICD-10 code E11.65 dapaglifloz 2021-0 Yes [id number] 10mg Take 1 [facility] in 3-30 tablet by ity of (FARXIGA) 00:00: mouth [place] 10 mg 00 daily. Medical tablet Branch Insulin 0 Yes [id number] Use as [facility] ers [place], 3-30 directed ity of Disposable, 00:00: to inject [place] (PEN 00 insulin Medical NEEDLE) 31 once Branch gauge x daily; 08/27" N[place] ICD-10 code E11.65 dapaglifloz 2021-0 2021- No [id number] 10mg Take 1 [facility] in 3-30 09-16 tablet by ity of (FARXIGA) 00:00: 00:00 mouth [place] 10 mg 00 :00 daily. Medical tablet Branch Insulin 2021- No [id number] Use as [facility] vers [place], 07-11 directed ity of Disposable, 00:00: 00:00 to inject [place] (PEN 00 :00 insulin Medical NEEDLE) 31 once Branch gauge x daily; 08/27" Ndle ICD-10 code E11.65 dapaglifloz 2021- No [id number] 10mg Take 1 [facility] in 07-11 tablet by ity of (FARXIGA) 00:00: 00:00 mouth [place] 10 mg 00 :00 daily. Medical tablet Branch Insulin 2021- No [id number] Use as [facility] vers [place], 07-11 directed ity of Disposable, 00:00: 00:00 to inject [place] (PEN 00 :00 insulin Medical NEEDLE) 31 once Branch gauge x daily; 08/27" [place] ICD-10 code E11.65 blood sugar Yes [id number] Check U nivers diagnostic 3-25 glucose ity of (ACCU-CHEK 00:00: once daily [place] KWESI PLUS 00 before Medical TEST STRP) breakfast; Bra nch strip ICD-10 E11.65 coenzyme Yes [id number] 100mg Take 1 [facility] n[facility] Q10 3-25 capsule by ity of (COQ-10) 00:00: mouth [place] 100 mg 00 daily. Medical softgel Branch Insulin Yes [id number] Use as [facility] ers [place], 07-06 directed ity of Disposable, 00:00: once daily [place] (RELION PEN 00 to inject Med ical NEEDLES) 32 insulin; Bran ch gauge x E11.65 " Ndle RESTASIS Yes [facility] 0.05 % 3-25 ity of ophthalmic 00:00: [place] drops 00 Medical Branch blood sugar Yes [id number] Check U nivers diagnostic 3-25 glucose ity of (ACCU-CHEK 00:00: once daily [place] KWESI PLUS 00 before Medical TEST STRP) breakfast; Bra nch strip ICD-10 E11.65 coenzyme Yes [id number] 100mg Take 1 [facility] nivers Q10 3-25 capsule by ity of (COQ-10) 00:00: mouth [place] 100 mg 00 daily. Medical softgel Branch Insulin Yes [id number] Use as [facility] ers [place], 3-25 directed ity of Disposable, 00:00: once daily [place] (RELION PEN 00 to inject Med ical NEEDLES) 32 insulin; Bran ch gauge x E11.65 5/32" Ndle RESTASIS 0 Yes [facility] 0.05 % 3-25 ity of ophthalmic 00:00: [place] drops 00 Medical Branch blood sugar 0 Yes [id number] Check U nivers diagnostic 3-25 glucose ity of (ACCU-CHEK 00:00: once daily [place] KWESI PLUS 00 before Medical TEST STRP) breakfast; Bra nch strip ICD-10 E11.65 coenzyme Yes [id number] 100mg Take 1 [facility] nivers Q10 3-25 capsule by ity of (COQ-10) 00:00: mouth [place] 100 mg 00 daily. Medical softgel Branch Insulin Yes [id number] Use as [facility] ers [place], 3-25 directed ity of Disposable, 00:00: once daily [place] (RELION PEN 00 to inject Med ical NEEDLES) 32 insulin; Bran ch gauge x E11.65 32" Ndle RESTASIS 0 Yes [facility] 0.05 % 3-25 ity of ophthalmic 00:00: [place] drops 00 Medical Branch blood sugar 0 Yes [id number] Check U nivers diagnostic 3-25 glucose ity of (ACCU-CHEK 00:00: once daily [place] KWESI PLUS 00 before Medical TEST STRP) breakfast; Bra nch strip ICD-10 E11.65 coenzyme 0 Yes [id number] 100mg Take 1 U nivers Q10 3-25 capsule by ity of (COQ-10) 00:00: mouth [place] 100 mg 00 daily. Medical softgel Branch Insulin Yes [id number] Use as [facility] ers [place], 3-25 directed ity of Disposable, 00:00: once daily [place] (RELION PEN 00 to inject Med ical NEEDLES) 32 insulin; Bran ch gauge x E11.65 5/32" Ndle RESTASIS 0 Yes [facility] 0.05 % 3-25 ity of ophthalmic 00:00: [place] drops 00 Medical Branch blood sugar Yes [id number] Check U nivers diagnostic 3-25 glucose ity of (ACCU-CHEK 00:00: once daily [place] KWESI PLUS 00 before Medical TEST STRP) breakfast; Bra nch strip ICD-10 E11.65 coenzyme Yes [id number] 100mg Take 1 [facility] nivers Q10 3-25 capsule by ity of (COQ-10) 00:00: mouth [place] 100 mg 00 daily. Medical softgel Branch Insulin Yes [id number] Use as [facility] ers [place], 3-25 directed ity of Disposable, 00:00: once daily [place] (RELION PEN 00 to inject Med ical NEEDLES) 32 insulin; Bran ch gauge x E11.65 532" Ndle RESTASIS Yes [facility] 0.05 % 3-25 ity of ophthalmic 00:00: [place] drops 00 Medical Branch blood sugar Yes [id number] Check U nivers diagnostic 3-25 glucose ity of (ACCU-CHEK 00:00: once daily [place] KWESI PLUS 00 before Medical TEST STRP) breakfast; Bra nch strip ICD-10 E11.65 coenzyme Yes [id number] 100mg Take 1 U nivers Q10 3-25 capsule by ity of (COQ-10) 00:00: mouth [place] 100 mg 00 daily. Medical softgel Branch Insulin Yes [id number] Use as [facility] ers [place], 3-25 directed ity of Disposable, 00:00: once daily [place] (RELION PEN 00 to inject Med ical NEEDLES) 32 insulin; Bran ch gauge x E11.65 5/32" Ndle RESTASIS 0 Yes [facility] 0.05 % 3-25 ity of ophthalmic 00:00: [place] drops 00 Medical Branch blood sugar Yes [id number] Check U nivers diagnostic 3-25 glucose ity of (ACCU-CHEK 00:00: once daily [place] KWESI PLUS 00 before Medical TEST STRP) breakfast; Bra nch strip ICD-10 E11.65 coenzyme 0 Yes [id number] 100mg Take 1 U nivers Q10 3-25 capsule by ity of (COQ-10) 00:00: mouth [place] 100 mg 00 daily. Medical softgel Branch Insulin Yes [id number] Use as [facility] ers [place], 3-25 directed ity of Disposable, 00:00: once daily [place] (RELION PEN 00 to inject Med ical NEEDLES) 32 insulin; Bran ch gauge x E11.65 5/32" Ndle RESTASIS 0 Yes [facility] 0.05 % 3-25 ity of ophthalmic 00:00: [place] drops 00 Medical Branch blood sugar 0 Yes [id number] Check U nivers diagnostic 3-25 glucose ity of (ACCU-CHEK 00:00: once daily [place] KWESI PLUS 00 before Medical TEST STRP) breakfast; Bra nch strip ICD-10 E11.65 coenzyme 0 Yes [id number] 100mg Take 1 U nivers Q10 3-25 capsule by ity of (COQ-10) 00:00: mouth [place] 100 mg 00 daily. Medical softgel Branch Insulin Yes [id number] Use as [facility] ers [place], 3-25 directed ity of Disposable, 00:00: once daily [place] (RELION PEN 00 to inject Med ical NEEDLES) 32 insulin; Bran ch gauge x E11.65 32" Ndle RESTASIS 0 Yes [facility] 0.05 % 3-25 ity of ophthalmic 00:00: [place] drops 00 Medical Branch blood sugar 0 Yes [id number] Check U nivers diagnostic 3-25 glucose ity of (ACCU-CHEK 00:00: once daily [place] KWESI PLUS 00 before Medical TEST STRP) breakfast; Bra nch strip ICD-10 E11.65 coenzyme 0 Yes [id number] 100mg Take 1 U nivers Q10 3-25 capsule by ity of (COQ-10) 00:00: mouth [place] 100 mg 00 daily. Medical softgel Branch Insulin Yes [id number] Use as [facility] ers [place], 3-25 directed ity of Disposable, 00:00: once daily [place] (RELION PEN 00 to inject Med ical NEEDLES) 32 insulin; Bran ch gauge x E11.65 5/32" Ndle RESTASIS 0 Yes [facility] 0.05 % 3-25 ity of ophthalmic 00:00: [place] drops 00 Medical Branch blood sugar 0 Yes [id number] Check U nivers diagnostic 3-25 glucose ity of (ACCU-CHEK 00:00: once daily [place] KWESI PLUS 00 before Medical TEST STRP) breakfast; Bra nch strip ICD-10 E11.65 coenzyme 0 Yes [id number] 100mg Take 1 U nivers Q10 3-25 capsule by ity of (COQ-10) 00:00: mouth [place] 100 mg 00 daily. Medical softgel Branch Insulin Yes [id number] Use as [facility] [place], 3-25 directed ity of Disposable, 00:00: once daily [place] (RELION PEN 00 to inject Med ical NEEDLES) 32 insulin; Bran ch gauge x E11.65 " Ndle RESTASIS 0 Yes [facility] 0.05 % 3-25 ity of ophthalmic 00:00: [place] drops 00 Medical Branch blood sugar Yes [id number] Check U nivers diagnostic 3-25 glucose ity of (ACCU-CHEK 00:00: once daily [place] KWESI PLUS 00 before Medical TEST STRP) breakfast; Bra nch strip ICD-10 E11.65 coenzyme Yes [id number] 100mg Take 1 U nivers Q10 3-25 capsule by ity of (COQ-10) 00:00: mouth [place] 100 mg 00 daily. Medical softgel Branch Insulin Yes [id number] Use as [facility] [place], 3-25 directed ity of Disposable, 00:00: once daily [place] (RELION PEN 00 to inject Med ical NEEDLES) 32 insulin; Bran ch gauge x E11.65 " Ndle RESTASIS 0 Yes [facility] 0.05 % 3-25 ity of ophthalmic 00:00: [place] drops 00 Medical Branch blood sugar 0 Yes [id number] Check U nivers diagnostic 3-25 glucose ity of (ACCU-CHEK 00:00: once daily [place] KWESI PLUS 00 before Medical TEST STRP) breakfast; Bra nch strip ICD-10 E11.65 coenzyme 0 Yes [id number] 100mg Take 1 U nivers Q10 3-25 capsule by ity of (COQ-10) 00:00: mouth [place] 100 mg 00 daily. Medical softgel Branch Insulin Yes [id number] Use as [facility] ers [place], 3-25 directed ity of Disposable, 00:00: once daily [place] (RELION PEN 00 to inject Med ical NEEDLES) 32 insulin; Bran ch gauge x E11.65 5/32" Ndle RESTASIS 0 Yes [facility] 0.05 % 3-25 ity of ophthalmic 00:00: [place] drops 00 Medical Branch blood sugar 0 Yes [id number] Check U nivers diagnostic 3-25 glucose ity of (ACCU-CHEK 00:00: once daily [place] KWESI PLUS 00 before Medical TEST STRP) breakfast; Bra nch strip ICD-10 E11.65 coenzyme 0 Yes [id number] 100mg Take 1 U nivers Q10 3-25 capsule by ity of (COQ-10) 00:00: mouth [place] 100 mg 00 daily. Medical softgel Branch Insulin 0 Yes [id number] Use as [facility] [place], 3-25 directed ity of Disposable, 00:00: once daily [place] (RELION PEN 00 to inject Med ical NEEDLES) 32 insulin; Bran ch gauge x E11.65 32" Ndle RESTASIS 0 Yes [facility] 0.05 % 3-25 ity of ophthalmic 00:00: [place] drops 00 [facility] blood sugar 0 Yes [id number] Check [facility] diagnostic 3-25 glucose ity of (ACCU-CHEK 00:00: [place] daily [place] KWESI PLUS 00 before Medical TEST STRP) breakfast; Bra nch strip ICD-10 E11.65 coenzyme 0 Yes [id number] 100mg Take 1 [facility] Q10 3-25 capsule by ity of (COQ-10) 00:00: mouth [place] 100 mg 00 daily. Medical softgel Branch Insulin 0 Yes [id number] [facility] [place], 3-25 directed ity of Disposable, 00:00: once daily [place] (RELION PEN 00 to inject Med ical NEEDLES) 32 insulin; Bran ch gauge x E11.65 5/32" Ndle RESTASIS 0 Yes [facility] 0.05 % 3-25 ity of ophthalmic 00:00: [place] drops 00 [facility] blood sugar 0 Yes [id number] Check [facility] diagnostic 3-25 glucose ity of (ACCU-CHEK 00:00: once daily [place] KWESI PLUS 00 before Medical TEST STRP) breakfast; Bra nch strip ICD-10 E11.65 coenzyme 0 Yes [id number] 100mg Take 1 [facility] Q10 3-25 capsule by ity of (COQ-10) 00:00: mouth [place] 100 mg 00 daily. Medical softgel Branch Insulin Yes [id number] [facility] [place], 3-25 directed ity of Disposable, 00:00: once daily [place] (RELION PEN 00 to inject Med ical NEEDLES) 32 insulin; Bran ch gauge x E11.65 5/32" Ndle RESTASIS 0 Yes [facility] 0.05 % 3-25 ity of ophthalmic 00:00: [place] drops 00 [facility] blood sugar 0 Yes [id number] Check [facility] nivers diagnostic 3-25 glucose ity of (ACCU-CHEK 00:00: once daily [place] KWESI PLUS 00 before Medical TEST STRP) breakfast; Bra nch strip ICD-10 E11.65 coenzyme Yes [id number] 100mg Take 1 [facility] Q10 3-25 capsule by ity of (COQ-10) 00:00: mouth [place] 100 mg 00 daily. Medical softgel Branch Insulin Yes [id number] [facility] [place], 3-25 directed ity of Disposable, 00:00: once daily [place] (RELION PEN 00 to inject Med ical NEEDLES) 32 insulin; Bran ch gauge x E11.65 32" Ndle RESTASIS Yes [facility] 0.05 % 3-25 ity of ophthalmic 00:00: [place] drops 00 [facility] blood sugar 0 Yes [id number] Check [facility]ivers diagnostic 3-25 glucose ity of (ACCU-CHEK 00:00: once daily [place] KWESI PLUS 00 before Medical TEST STRP) breakfast; Bra nch strip ICD-10 E11.65 coenzyme 0 Yes [id number] 100mg Take 1 [facility] Q10 3-25 capsule by ity of (COQ-10) 00:00: mouth [place] 100 mg 00 daily. Medical softgel Branch Insulin Yes [id number] Use [facility] [place], 3-25 directed ity of Disposable, 00:00: once daily [place] (RELION PEN 00 to inject Med ical NEEDLES) 32 insulin; Bran ch gauge x E11.65 5/32" Ndle RESTASIS 0 Yes [facility] 0.05 % 3-25 ity of ophthalmic 00:00: [place] drops 00 [facility] blood sugar 0 Yes [id number] Check [facility] diagnostic 3-25 glucose ity of (ACCU-CHEK 00:00: once daily [place] KWESI PLUS 00 before Medical TEST STRP) breakfast; Bra nch strip ICD-10 E11.65 coenzyme 0 Yes [id number] 100mg Take 1 [facility] Q10 3-25 capsule by ity of (COQ-10) 00:00: mouth [place] 100 mg 00 daily. Medical softgel Branch Insulin Yes [id number] Use [facility] [place], 3-25 directed ity of Disposable, 00:00: once daily [place] (RELION PEN 00 to inject Med ical NEEDLES) 32 insulin; Bran ch gauge x E11.65 " Ndle RESTASIS Yes [facility] 0.05 % 3-25 ity of ophthalmic 00:00: [place] drops [facility] blood sugar Yes [id number] Check [facility] diagnostic 3-25 glucose ity of (ACCU-CHEK 00:00: once daily [place] KWESI PLUS 00 before Medical TEST STRP) breakfast; Bra nch strip ICD-10 E11.65 coenzyme 0 Yes [id number] 100mg Take 1 [facility] Q10 3-25 capsule by ity of (COQ-10) 00:00: mouth [place] 100 mg 00 daily. Medical softgel Branch Insulin Yes [id number] Use [facility] [place], 3-25 directed ity of Disposable, 00:00: once daily [place] (RELION PEN 00 to inject Med ical NEEDLES) 32 insulin; Bran ch gauge x E11.65 " Ndle RESTASIS 2021-0 Yes [facility] 0.05 % 3-25 ity of ophthalmic 00:00: [place] drops 00 [facility] blood sugar Yes [id number] Check [facility] diagnostic 3-25 glucose ity of (ACCU-CHEK 00:00: once daily [place] KWESI PLUS 00 before Medical TEST STRP) breakfast; Bra nch strip ICD-10 E11.65 coenzyme 0 Yes [id number] 100mg Take 1 [facility] Q10 3-25 capsule by ity of (COQ-10) 00:00: mouth [place] 100 mg 00 daily. Medical softgel Branch Insulin 0 Yes [id number] Use [facility] [place], 3-25 directed ity of Disposable, 00:00: once daily [place] (RELION PEN 00 to inject Med ical NEEDLES) 32 insulin; Bran ch gauge x E11.65 5/32" Ndle RESTASIS 0 Yes [facility] 0.05 % 3-25 ity of ophthalmic 00:00: [place] drops 00 [facility] blood sugar 0 Yes [id number] Check [facility] nivers diagnostic 3-25 glucose ity of (ACCU-CHEK 00:00: once daily [place] KWESI PLUS 00 before Medical TEST STRP) breakfast; Bra nch strip ICD-10 E11.65 coenzyme 0 Yes [id number] 100mg Take 1 [facility] Q10 3-25 capsule by ity of (COQ-10) 00:00: mouth [place] 100 mg 00 daily. Medical softgel Branch Insulin Yes [id number] Use [facility] [place], 3-25 directed ity of Disposable, 00:00: once daily [place] (RELION PEN 00 to inject Med ical NEEDLES) 32 insulin; Bran ch gauge x E11.65 32" Ndle RESTASIS 0 Yes [facility] 0.05 % 3-25 ity of ophthalmic 00:00: [place] drops 00 [facility] blood sugar 0 Yes [id number] Check [facility] diagnostic 3-25 glucose ity of (ACCU-CHEK 00:00: once daily [place] KWESI PLUS 00 before Medical TEST STRP) breakfast; Bra nch strip ICD-10 E11.65 coenzyme 0 Yes [id number] 100mg Take 1 [facility] Q10 3-25 capsule by ity of (COQ-10) 00:00: mouth [place] 100 mg 00 daily. Medical softgel Branch Insulin Yes [id number] Use [facility] [place], 3-25 directed ity of Disposable, 00:00: once daily [place] (RELION PEN 00 to inject Med ical NEEDLES) 32 insulin; Bran ch gauge x E11.65 5/32" Ndle RESTASIS 0 Yes [facility] 0.05 % 3-25 ity of ophthalmic 00:00: [place] drops 00 [facility] blood sugar 0 Yes [id number] Check [facility] diagnostic 3-25 glucose ity of (ACCU-CHEK 00:00: once daily [place] KWESI PLUS 00 before Medical TEST STRP) breakfast; Bra nch strip ICD-10 E11.65 coenzyme 0 Yes [id number] 100mg Take 1 [facility] Q10 3-25 capsule by ity of (COQ-10) 00:00: mouth [place] 100 mg 00 daily. Medical softgel Branch Insulin 0 Yes [id number] Use [facility] [place], 3-25 directed ity of Disposable, 00:00: once daily [place] (RELION PEN 00 to inject Med ical NEEDLES) 32 insulin; Bran ch gauge x E11.65 532" Ndle RESTASIS 0 Yes [facility] 0.05 % 3-25 ity of ophthalmic 00:00: [place] drops 00 [facility] blood sugar 0 Yes [id number] Check [facility] diagnostic 3-25 glucose ity of (ACCU-CHEK 00:00: once daily [place] KWESI PLUS 00 before Medical TEST STRP) breakfast; Bra nch strip ICD-10 E11.65 coenzyme 0 Yes [id number] 100mg Take 1 [facility] Q10 3-25 capsule by ity of (COQ-10) 00:00: mouth [place] 100 mg 00 daily. Medical softgel Branch Insulin 0 Yes [id number] Use [facility] [place], 3-25 directed ity of Disposable, 00:00: once daily [place] (RELION PEN 00 to inject Med ical NEEDLES) 32 insulin; Bran ch gauge x E11.65 32" Ndle RESTASIS 2021-0 Yes [facility] 0.05 % 3-25 ity of ophthalmic 00:00: [place] drops 00 [facility] blood sugar 0 Yes [id number] Check [facility] diagnostic 3-25 glucose ity of (ACCU-CHEK 00:00: once daily [place] KWESI PLUS 00 before Medical TEST STRP) breakfast; Bra nch strip ICD-10 E11.65 coenzyme 0 Yes [id number] 100mg Take 1 [facility] Q10 3-25 capsule by ity of (COQ-10) 00:00: mouth [place] 100 mg 00 daily. Medical softgel Branch Insulin 0 Yes [id number] Use [facility] [place], 3-25 directed ity of Disposable, 00:00: once daily [place] (RELION PEN 00 to inject Med ical NEEDLES) 32 insulin; Bran ch gauge x E11.65 532" Ndle RESTASIS 0 Yes [facility] 0.05 % 3-25 ity of ophthalmic 00:00: [place] drops 00 [facility] blood sugar 0 Yes [id number] Check [facility] diagnostic 3-25 glucose ity of (ACCU-CHEK 00:00: once daily [place] KWESI PLUS 00 before Medical TEST STRP) breakfast; Bra nch strip ICD-10 E11.65 coenzyme 0 Yes [id number] 100mg Take 1 [facility] Q10 3-25 capsule by ity of (COQ-10) 00:00: mouth [place] 100 mg 00 daily. Medical softgel Branch Insulin Yes [id number] Use [facility] [place], 3-25 directed ity of Disposable, 00:00: once daily [place] (RELION PEN 00 to inject Med ical NEEDLES) 32 insulin; Bran ch gauge x E11.65 " Ndle RESTASIS 0 Yes [facility] 0.05 % 3-25 ity of ophthalmic 00:00: [place] drops 00 [facility] blood sugar 0 Yes [id number] Check [facility] diagnostic 3-25 glucose ity of (ACCU-CHEK 00:00: once daily [place] KWESI PLUS 00 before Medical TEST STRP) breakfast; Bra nch strip ICD-10 E11.65 coenzyme 0 Yes [id number] 100mg Take 1 [facility] n[facility] Q10 3-25 capsule by ity of (COQ-10) 00:00: mouth [place] 100 mg 00 daily. Medical softgel Branch Insulin 0 Yes [id number] Use [facility] [place], 3-25 directed ity of Disposable, 00:00: once daily [place] (RELION PEN 00 to inject Med ical NEEDLES) 32 insulin; Bran ch gauge x E11.65 " Ndle RESTASIS 0 Yes [facility] 0.05 % 3-25 ity of ophthalmic 00:00: [place] drops 00 [facility] blood sugar 0 Yes [id number] Check [facility] n[facility] diagnostic 3-25 glucose ity of (ACCU-CHEK 00:00: once daily [place] KWESI PLUS 00 before Medical TEST STRP) breakfast; Bra nch strip ICD-10 E11.65 coenzyme 2022-0 Yes [id number] 100mg Take 1 [facility] Q10 3-25 capsule by ity of (COQ-10) 00:00: mouth [place] 100 mg 00 daily. Medical softgel Branch Insulin Yes [id number] Use [facility] [place], 3-25 directed ity of Disposable, 00:00: once daily [place] (RELION PEN 00 to inject Med ical NEEDLES) 32 insulin; Bran ch gauge x E11.65 32" Ndle RESTASIS Yes [facility] 0.05 % 3-25 ity of ophthalmic 00:00: [place] drops 00 [facility] blood sugar Yes [id number] Check [facility] n[facility] diagnostic 3-25 glucose ity of (ACCU-CHEK 00:00: once daily [place] KWESI PLUS 00 before Medical TEST STRP) breakfast; Bra nch strip ICD-10 E11.65 coenzyme Yes [id number] 100mg Take 1 [facility] nivers Q10 3-25 capsule by ity of (COQ-10) 00:00: mouth [place] 100 mg 00 daily. Medical softgel Branch Insulin Yes [id number] Use [facility] [place], 3-25 directed ity of Disposable, 00:00: once daily [place] (RELION PEN 00 to inject Med ical NEEDLES) 32 insulin; Bran ch gauge x E11.65 " Ndle RESTASIS 0 Yes [facility] 0.05 % 3-25 ity of ophthalmic 00:00: [place] drops 00 [facility] blood sugar Yes [id number] Check [facility] n[facility] diagnostic 3-25 glucose ity of (ACCU-CHEK 00:00: once daily [place] KWESI PLUS 00 before Medical TEST STRP) breakfast; Bra nch strip ICD-10 E11.65 coenzyme Yes [id number] 100mg Take 1 [facility] nivers Q10 3-25 capsule by ity of (COQ-10) 00:00: mouth [place] 100 mg 00 daily. Medical softgel Branch Insulin Yes [id number] Use [facility] [place], 3-25 directed ity of Disposable, 00:00: once daily [place] (RELION PEN 00 to inject Med ical NEEDLES) 32 insulin; Bran ch gauge x E11.65 532" Ndle RESTASIS 0 Yes [facility] 0.05 % 3-25 ity of ophthalmic 00:00: [place] drops 00 [facility] blood sugar 0 Yes [id number] Check [facility] nivers diagnostic 3-25 glucose ity of (ACCU-CHEK 00:00: once daily [place] KWESI PLUS 00 before Medical TEST STRP) breakfast; Bra nch strip ICD-10 E11.65 coenzyme 0 Yes [id number] 100mg Take 1 [facility] nivers Q10 3-25 capsule by ity of (COQ-10) 00:00: mouth [place] 100 mg 00 daily. Medical softgel Branch Insulin 2021-0 Yes [id number] Use [facility] [place], 3-25 directed ity of Disposable, 00:00: once daily [place] (RELION PEN 00 to inject Med ical NEEDLES) 32 insulin; Bran ch gauge x E11.65 532" Ndle RESTASIS 0 Yes [facility] 0.05 % 3-25 ity of ophthalmic 00:00: [place] drops 00 [facility] blood sugar 0 Yes [id number] Check [facility] nivers diagnostic 3-25 glucose ity of (ACCU-CHEK 00:00: once daily [place] KWESI PLUS 00 before Medical TEST STRP) breakfast; Bra nch strip ICD-10 E11.65 coenzyme 0 Yes [id number] 100mg Take 1 [facility] nivers Q10 3-25 capsule by ity of (COQ-10) 00:00: mouth [place] 100 mg 00 daily. Medical softgel Branch Insulin 0 Yes [id number] Use as [facility] [place], 3-25 directed ity of Disposable, 00:00: once daily [place] (RELION PEN 00 to inject Med ical NEEDLES) 32 insulin; Bran ch gauge x E11.65 32" Ndle RESTASIS 0 Yes [facility] 0.05 % 3-25 ity of ophthalmic 00:00: [place] drops 00 [facility] blood sugar 0 Yes [id number] Check [facility] nivers diagnostic 3-25 glucose ity of (ACCU-CHEK 00:00: once daily [place] KWESI PLUS 00 before Medical TEST STRP) breakfast; Bra nch strip ICD-10 E11.65 coenzyme 2021-0 Yes [id number] 100mg Take 1 [facility] nivers Q10 3-25 capsule by ity of (COQ-10) 00:00: mouth [place] 100 mg 00 daily. Medical softgel Branch Insulin Yes [id number] Use [facility] [place], 3-25 directed ity of Disposable, 00:00: once daily [place] (RELION PEN 00 to inject Med ical NEEDLES) 32 insulin; Bran ch gauge x E11.65 5/32" Ndle RESTASIS Yes [facility] 0.05 % 3-25 ity of ophthalmic 00:00: [place] drops 00 [facility] blood sugar Yes [id number] Check [facility] nivers diagnostic 3-25 glucose ity of (ACCU-CHEK 00:00: once daily [place] KWESI PLUS 00 before Medical TEST STRP) breakfast; Bra nch strip ICD-10 E11.65 coenzyme Yes [id number] 100mg Take 1 U nivers Q10 3-25 capsule by ity of (COQ-10) 00:00: mouth [place] 100 mg 00 daily. Medical softgel Branch Insulin Yes [id number] Use as [facility] [place], 3-25 directed ity of Disposable, 00:00: once daily [place] (RELION PEN 00 to inject Med ical NEEDLES) 32 insulin; Bran ch gauge x E11.65 " Ndle RESTASIS Yes [facility] 0.05 % 3-25 ity of ophthalmic 00:00: [place] drops 00 [facility] blood sugar Yes [id number] Check U nivers diagnostic 3-25 glucose ity of (ACCU-CHEK 00:00: once daily [place] KWESI PLUS 00 before Medical TEST STRP) breakfast; Bra nch strip ICD-10 E11.65 coenzyme 0 Yes [id number] 100mg Take 1 [facility] nivers Q10 3-25 capsule by ity of (COQ-10) 00:00: mouth [place] 100 mg 00 daily. Medical softgel Branch Insulin Yes [id number] Use as [facility] [place], 3-25 directed ity of Disposable, 00:00: once daily [place] (RELION PEN 00 to inject Med ical NEEDLES) 32 insulin; Bran ch gauge x E11.65 32" Ndle RESTASIS Yes [facility] 0.05 % 3-25 ity of ophthalmic 00:00: [place] drops 00 [facility] blood sugar Yes [id number] Check [facility] nivers diagnostic 3-25 glucose ity of (ACCU-CHEK 00:00: once daily [place] KWESI PLUS 00 before Medical TEST STRP) breakfast; Bra nch strip ICD-10 E11.65 coenzyme 0 Yes [id number] 100mg Take 1 [facility] nivers Q10 3-25 capsule by ity of (COQ-10) 00:00: mouth [place] 100 mg 00 daily. Medical softgel Branch Insulin Yes [id number] Use as [facility] [place], 3-25 directed ity of Disposable, 00:00: once daily [place] (RELION PEN 00 to inject Med ical NEEDLES) 32 insulin; Bran ch gauge x E11.65 " Ndle RESTASIS 0 Yes [facility] 0.05 % 3-25 ity of ophthalmic 00:00: [place] drops 00 [facility] blood sugar Yes [id number] Check [facility] n[facility] diagnostic 3-25 glucose ity of (ACCU-CHEK 00:00: once daily [place] KWESI PLUS 00 before Medical TEST STRP) breakfast; Bra nch strip ICD-10 E11.65 coenzyme 0 Yes [id number] 100mg Take 1 U nivers Q10 3-25 capsule by ity of (COQ-10) 00:00: mouth [place] 100 mg 00 daily. Medical softgel Branch Insulin Yes [id number] Use as [facility] [place], 3-25 directed ity of Disposable, 00:00: once daily [place] (RELION PEN 00 to inject Med ical NEEDLES) 32 insulin; Bran ch gauge x E11.65 32" Ndle RESTASIS 2021-0 Yes [facility] 0.05 % 3-25 ity of ophthalmic 00:00: [place] drops 00 [facility] blood sugar 0 Yes [id number] Check U nivers diagnostic 3-25 glucose ity of (ACCU-CHEK 00:00: once daily [place] KWESI PLUS 00 before Medical TEST STRP) breakfast; Bra nch strip ICD-10 E11.65 coenzyme 0 Yes [id number] 100mg Take 1 U nivers Q10 3-25 capsule by ity of (COQ-10) 00:00: mouth [place] 100 mg 00 daily. Medical softgel Branch Insulin 0 Yes [id number] Use [facility] [place], 3-25 directed ity of Disposable, 00:00: once daily [place] (RELION PEN 00 to inject Med ical NEEDLES) 32 insulin; Bran ch gauge x E11.65 532" Ndle RESTASIS 0 Yes [facility] 0.05 % 3-25 ity of ophthalmic 00:00: [place] drops 00 [facility] blood sugar 0 Yes [id number] Check [facility] nivers diagnostic 3-25 glucose ity of (ACCU-CHEK 00:00: once daily [place] KWESI PLUS 00 before Medical TEST STRP) breakfast; Bra nch strip ICD-10 E11.65 coenzyme 0 Yes [id number] 100mg Take 1 U nivers Q10 3-25 capsule by ity of (COQ-10) 00:00: mouth [place] 100 mg 00 daily. Medical softgel Branch Insulin Yes [id number] Use as [facility] [place], 3-25 directed ity of Disposable, 00:00: once daily [place] (RELION PEN 00 to inject Med ical NEEDLES) 32 insulin; Bran ch gauge x E11.65 " Ndle RESTASIS 0 Yes [facility] 0.05 % 3-25 ity of ophthalmic 00:00: [place] drops 00 [facility] blood sugar 0 Yes [id number] Check [facility] diagnostic 3-25 glucose ity of (ACCU-CHEK 00:00: once daily [place] KWEIS PLUS 00 before Medical TEST STRP) breakfast; Bra nch strip ICD-10 E11.65 coenzyme 0 Yes [id number] 100mg Take 1 U nivers Q10 3-25 capsule by ity of (COQ-10) 00:00: mouth [place] 100 mg 00 daily. Medical softgel Branch Insulin 0 Yes [id number] Use as [facility] [place], 3-25 directed ity of Disposable, 00:00: once daily [place] (RELION PEN 00 to inject Med ical NEEDLES) 32 insulin; Bran ch gauge x E11.65 532" Ndle RESTASIS 0 Yes [facility] 0.05 % 3-25 ity of ophthalmic 00:00: [place] drops 00 [facility] blood sugar 0 Yes [id number] Check [facility] n[facility] diagnostic 3-25 glucose ity of (ACCU-CHEK 00:00: once daily [place] KWESI PLUS 00 before Medical TEST STRP) breakfast; Bra nch strip ICD-10 E11.65 coenzyme 0 Yes [id number] 100mg Take 1 U nivers Q10 3-25 capsule by ity of (COQ-10) 00:00: mouth [place] 100 mg 00 daily. Medical softgel Branch Insulin Yes [id number] Use as [facility] [place], 3-25 directed ity of Disposable, 00:00: once daily [place] (RELION PEN 00 to inject Med ical NEEDLES) 32 insulin; Bran ch gauge x E11.65 5/32" Ndle RESTASIS Yes [facility] 0.05 % 3-25 ity of ophthalmic 00:00: [place] drops 00 [facility] blood sugar Yes [id number] Check [facility] diagnostic 3-25 glucose ity of (ACCU-CHEK 00:00: once daily [place] KWESI PLUS 00 before Medical TEST STRP) breakfast; Bra nch strip ICD-10 E11.65 coenzyme Yes [id number] 100mg Take 1 U nivers Q10 3-25 capsule by ity of (COQ-10) 00:00: mouth [place] 100 mg 00 daily. Medical softgel Branch Insulin Yes [id number] Use as [facility] [place], 3-25 directed ity of Disposable, 00:00: once daily [place] (RELION PEN 00 to inject Med ical NEEDLES) 32 insulin; Bran ch gauge x E11.65 " Ndle RESTASIS Yes [facility] 0.05 % 3-25 ity of ophthalmic 00:00: [place] drops 00 [facility] blood sugar Yes [id number] Check [facility] diagnostic 3-25 glucose ity of (ACCU-CHEK 00:00: once daily [place] KWESI PLUS 00 before Medical TEST STRP) breakfast; Bra nch strip ICD-10 E11.65 coenzyme 0 Yes [id number] 100mg Take 1 U nivers Q10 3-25 capsule by ity of (COQ-10) 00:00: mouth [place] 100 mg 00 daily. Medical softgel Branch Insulin Yes [id number] Use [facility] [place], 3-25 directed ity of Disposable, 00:00: once daily [place] (RELION PEN 00 to inject Med ical NEEDLES) 32 insulin; Bran ch gauge x E11.65 5/32" Ndle RESTASIS 0 Yes [facility] 0.05 % 3-25 ity of ophthalmic 00:00: [place] drops 00 [facility] blood sugar 0 Yes [id number] Check [facility] diagnostic 3-25 glucose ity of (ACCU-CHEK 00:00: once daily [place] KWESI PLUS 00 before Medical TEST STRP) breakfast; Bra nch strip ICD-10 E11.65 coenzyme 0 Yes [id number] 100mg Take 1 U nivers Q10 3-25 capsule by ity of (COQ-10) 00:00: mouth [place] 100 mg 00 daily. Medical softgel Branch Insulin Yes [id number] Use as [facility] [place], 3-25 directed ity of Disposable, 00:00: once daily [place] (RELION PEN 00 to inject Med ical NEEDLES) 32 insulin; Bran ch gauge x E11.65 " Ndle RESTASIS 0 Yes [facility] 0.05 % 3-25 ity of ophthalmic 00:00: [place] drops 00 [facility] blood sugar Yes [id number] Check [facility] nivers diagnostic 3-25 glucose ity of (ACCU-CHEK 00:00: once daily [place] KWESI PLUS 00 before Medical TEST STRP) breakfast; Bra nch strip ICD-10 E11.65 coenzyme 0 Yes [id number] 100mg Take 1 U nivers Q10 3-25 capsule by ity of (COQ-10) 00:00: mouth [place] 100 mg 00 daily. Medical softgel Branch Insulin Yes [id number] Use as [facility] [place], 3-25 directed ity of Disposable, 00:00: once daily [place] (RELION PEN 00 to inject Med ical NEEDLES) 32 insulin; Bran ch gauge x E11.65 " Ndle RESTASIS 0 Yes [facility] 0.05 % 3-25 ity of ophthalmic 00:00: [place] drops 00 [facility] coenzyme 2021-0 Yes [id number] 100mg Take 1 U nivers Q10 3-25 capsule by ity of (COQ-10) 00:00: mouth [place] 100 mg 00 daily. Medical softgel Branch Insulin 0 Yes [id number] Use [facility] [place], 3-25 directed ity of Disposable, 00:00: once daily [place] (RELION PEN 00 to inject Med ical NEEDLES) 32 insulin; Bran ch gauge x E11.65 5/32" Ndle RESTASIS 0 Yes [facility] 0.05 % 3-25 ity of ophthalmic 00:00: [place] drops 00 [facility] coenzyme 0 Yes [id number] 100mg Take 1 U nivers Q10 3-25 capsule by ity of (COQ-10) 00:00: mouth [place] 100 mg 00 daily. Medical softgel Branch Insulin Yes [id number] Use [facility] [place], 3-25 directed ity of Disposable, 00:00: once daily [place] (RELION PEN 00 to inject Med ical NEEDLES) 32 insulin; Bran ch gauge x E11.65 532" Ndle RESTASIS Yes [facility] 0.05 % 3-25 ity of ophthalmic 00:00: [place] drops 00 [facility] coenzyme Yes [id number] 100mg Take 1 U nivers Q10 3-25 capsule by ity of (COQ-10) 00:00: mouth [place] 100 mg 00 daily. Medical softgel Branch Insulin Yes [id number] Use as [facility] [place], 3-25 directed ity of Disposable, 00:00: once daily [place] (RELION PEN 00 to inject Med ical NEEDLES) 32 insulin; Bran ch gauge x E11.65 32" Ndle RESTASIS Yes [facility] 0.05 % 3-25 ity of ophthalmic 00:00: [place] drops 00 [facility] coenzyme 0 Yes [id number] 100mg Take 1 U nivers Q10 3-25 capsule by ity of (COQ-10) 00:00: mouth [place] 100 mg 00 daily. Medical softgel Branch Insulin Yes [id number] Use as [facility] [place], 3-25 directed ity of Disposable, 00:00: once daily [place] (RELION PEN 00 to inject Med ical NEEDLES) 32 insulin; Bran ch gauge x E11.65 532" Ndle RESTASIS Yes [facility] 0.05 % 3-25 ity of ophthalmic 00:00: [place] drops 00 [facility] coenzyme 0 Yes [id number] 100mg Take 1 U nivers Q10 3-25 capsule by ity of (COQ-10) 00:00: mouth [place] 100 mg 00 daily. Medical softgel Branch Insulin Yes [id number] Use [facility] [place], 3-25 directed ity of Disposable, 00:00: once daily [place] (RELION PEN 00 to inject Med ical NEEDLES) 32 insulin; Bran ch gauge x E11.65 5/32" Ndle RESTASIS Yes [facility] 0.05 % 3-25 ity of ophthalmic 00:00: [place] drops 00 [facility] coenzyme 2021-0 Yes [id number] 100mg Take 1 U nivers Q10 3-25 capsule by ity of (COQ-10) 00:00: mouth [place] 100 mg 00 daily. Medical softgel Branch Insulin Yes [id number] Use as [facility] [place], 3-25 directed ity of Disposable, 00:00: once daily [place] (RELION PEN 00 to inject Med ical NEEDLES) 32 insulin; Bran ch gauge x E11.65 32" Ndle RESTASIS Yes [facility] 0.05 % 3-25 ity of ophthalmic 00:00: [place] drops 00 [facility] coenzyme Yes [id number] 100mg Take 1 U nivers Q10 3-25 capsule by ity of (COQ-10) 00:00: mouth [place] 100 mg 00 daily. Medical softgel Branch Insulin Yes [id number] Use as [facility] [place], 3-25 directed ity of Disposable, 00:00: once daily [place] (RELION PEN 00 to inject Med ical NEEDLES) 32 insulin; Bran ch gauge x E11.65 32" Ndle RESTASIS Yes [facility] 0.05 % 3-25 ity of ophthalmic 00:00: [place] drops 00 [facility] coenzyme 0 Yes [id number] 100mg Take 1 U nivers Q10 3-25 capsule by ity of (COQ-10) 00:00: mouth [place] 100 mg 00 daily. Medical softgel Branch Insulin Yes [id number] Use as [facility] [place], 3-25 directed ity of Disposable, 00:00: once daily [place] (RELION PEN 00 to inject Med ical NEEDLES) 32 insulin; Bran ch gauge x E11.65 5/32" Ndle RESTASIS 0 Yes [facility] 0.05 % 3-25 ity of ophthalmic 00:00: [place] drops 00 [facility] coenzyme 0 Yes [id number] 100mg Take 1 U nivers Q10 3-25 capsule by ity of (COQ-10) 00:00: mouth [place] 100 mg 00 daily. Medical softgel Branch Insulin Yes [id number] Use as [facility] [place], 3-25 directed ity of Disposable, 00:00: once daily [place] (RELION PEN 00 to inject Med ical NEEDLES) 32 insulin; Bran ch gauge x E11.65 5/32" Ndle RESTASIS Yes [facility] 0.05 % 3-25 ity of ophthalmic 00:00: [place] drops 00 [facility] coenzyme Yes [id number] 100mg Take 1 U nivers Q10 3-25 capsule by ity of (COQ-10) 00:00: mouth [place] 100 mg 00 daily. Medical softgel Branch Insulin Yes [id number] Use as [facility] [place], 3-25 directed ity of Disposable, 00:00: once daily [place] (RELION PEN 00 to inject Med ical NEEDLES) 32 insulin; Bran ch gauge x E11.65 5/32" Ndle RESTASIS Yes [facility] 0.05 % 3-25 ity of ophthalmic 00:00: [place] drops 00 [facility] coenzyme Yes [id number] 100mg Take 1 U nivers Q10 3-25 capsule by ity of (COQ-10) 00:00: mouth [place] 100 mg 00 daily. Medical softgel Branch Insulin Yes [id number] Use as [facility] [place], 3-25 directed ity of Disposable, 00:00: once daily [place] (RELION PEN 00 to inject Med ical NEEDLES) 32 insulin; Bran ch gauge x E11.65 5/32" Ndle RESTASIS Yes [facility] 0.05 % 3-25 ity of ophthalmic 00:00: [place] drops 00 Medical Branch coenzyme Yes [id number] 100mg Take 1 U nivers Q10 3-25 capsule by ity of (COQ-10) 00:00: mouth [place] 100 mg 00 daily. Medical softgel Branch Insulin Yes [id number] Use as [facility] [place], 3-25 directed ity of Disposable, 00:00: once daily [place] (RELION PEN 00 to inject Med ical NEEDLES) 32 insulin; Bran ch gauge x E11.65 5/32" Ndle RESTASIS Yes [facility] 0.05 % 3-25 ity of ophthalmic 00:00: [place] drops 00 Medical Branch coenzyme 2-0 Yes [id number] 100mg Take 1 U nivers Q10 3-25 capsule by ity of (COQ-10) 00:00: mouth [place] 100 mg 00 daily. Medical softgel Branch RESTASIS 2021-0 Yes [facility] 0.05 % 3-25 ity of ophthalmic 00:00: [place] drops 00 Medical Branch coenzyme 2-0 Yes [id number] 100mg Take 1 U nivers Q10 3-25 capsule by ity of (COQ-10) 00:00: mouth [place] 100 mg 00 daily. Medical softgel Branch RESTASIS 2021-0 Yes [facility] 0.05 % 3-25 ity of ophthalmic 00:00: [place] drops 00 Medical Branch coenzyme 2-0 Yes [id number] 100mg Take 1 U nivers Q10 3-25 capsule by ity of (COQ-10) 00:00: mouth [place] 100 mg 00 daily. Medical softgel Branch RESTASIS 2021-0 Yes [facility] 0.05 % 3-25 ity of ophthalmic 00:00: [place] drops 00 Medical Branch coenzyme 2-0 Yes [id number] 100mg Take 1 U nivers Q10 3-25 capsule by ity of (COQ-10) 00:00: mouth [place] 100 mg 00 daily. Medical softgel Branch RESTASIS 2021-0 Yes [facility] 0.05 % 3-25 ity of ophthalmic 00:00: [place] drops 00 Medical Branch coenzyme 2-0 Yes [id number] 100mg Take 1 U nivers Q10 3-25 capsule by ity of (COQ-10) 00:00: mouth [place] 100 mg 00 daily. Medical softgel Branch RESTASIS 2021-0 Yes [facility] 0.05 % 3-25 ity of ophthalmic 00:00: [place] drops 00 Medical Branch coenzyme 2-0 Yes [id number] 100mg Take 1 U nivers Q10 3-25 capsule by ity of (COQ-10) 00:00: mouth [place] 100 mg 00 daily. Medical softgel Branch RESTASIS 2021-0 Yes [facility] 0.05 % 3-25 ity of ophthalmic 00:00: [place] drops 00 Medical Branch coenzyme 2-0 Yes [id number] 100mg Take 1 U nivers Q10 3-25 capsule by ity of (COQ-10) 00:00: mouth [place] 100 mg 00 daily. Medical softgel Branch RESTASIS 2021-0 Yes [facility] 0.05 % 3-25 ity of ophthalmic 00:00: [place] drops 00 Medical Branch coenzyme 2-0 Yes [id number] 100mg Take 1 U nivers Q10 3-25 capsule by ity of (COQ-10) 00:00: mouth [place] 100 mg 00 daily. Medical softgel Branch RESTASIS 2021-0 Yes [facility] 0.05 % 3-25 ity of ophthalmic 00:00: [place] drops 00 Medical Branch coenzyme 2-0 Yes [id number] 100mg Take 1 U nivers Q10 3-25 capsule by ity of (COQ-10) 00:00: mouth [place] 100 mg 00 daily. Medical softgel Branch RESTASIS 2021-0 Yes [facility] 0.05 % 3-25 ity of ophthalmic 00:00: [place] drops 00 Medical Branch coenzyme 2-0 Yes [id number] 100mg Take 1 U nivers Q10 3-25 capsule by ity of (COQ-10) 00:00: mouth [place] 100 mg 00 daily. Medical softgel Branch RESTASIS 2021-0 Yes [facility] 0.05 % 3-25 ity of ophthalmic 00:00: [place] drops 00 Medical Branch coenzyme 2-0 Yes [id number] 100mg Take 1 U nivers Q10 3-25 capsule by ity of (COQ-10) 00:00: mouth [place] 100 mg 00 daily. Medical softgel Branch RESTASIS 2021-0 Yes [facility] 0.05 % 3-25 ity of ophthalmic 00:00: [place] drops 00 Medical Branch coenzyme 2-0 Yes [id number] 100mg Take 1 U nivers Q10 3-25 capsule by ity of (COQ-10) 00:00: mouth [place] 100 mg 00 daily. Medical softgel Branch RESTASIS 2021-0 Yes [facility] 0.05 % 3-25 ity of ophthalmic 00:00: [place] drops 00 Medical Branch coenzyme 2022-0 Yes [id number] 100mg Take 1 U nivers Q10 3-25 capsule by ity of (COQ-10) 00:00: mouth [place] 100 mg 00 daily. Medical softgel Branch RESTASIS 2021-0 Yes [facility] 0.05 % 3-25 ity of ophthalmic 00:00: [place] drops 00 Medical Branch coenzyme 2022-0 Yes [id number] 100mg Take 1 U nivers Q10 3-25 capsule by ity of (COQ-10) 00:00: mouth [place] 100 mg 00 daily. Medical softgel Branch RESTASIS 2021-0 Yes [facility] 0.05 % 3-25 ity of ophthalmic 00:00: [place] drops 00 Medical Branch coenzyme 2-0 Yes [id number] 100mg Take 1 U nivers Q10 3-25 capsule by ity of (COQ-10) 00:00: mouth [place] 100 mg 00 daily. Medical softgel Branch RESTASIS 2021-0 Yes [facility] 0.05 % 3-25 ity of ophthalmic 00:00: [place] drops 00 Medical Branch coenzyme 2021-0 Yes [id number] 100mg Take 1 U nivers Q10 3-25 capsule by ity of (COQ-10) 00:00: mouth [place] 100 mg 00 daily. Medical softgel Branch RESTASIS 2021-0 Yes [facility] 0.05 % 3-25 ity of ophthalmic 00:00: [place] drops 00 Medical Branch coenzyme 2021-0 Yes [id number] 100mg Take 1 U nivers Q10 3-25 capsule by ity of (COQ-10) 00:00: mouth [place] 100 mg 00 daily. Medical softgel Branch RESTASIS 2021-0 Yes [facility] 0.05 % 3-25 ity of ophthalmic 00:00: [place] drops 00 Medical Branch coenzyme 2021-0 Yes [id number] 100mg Take 1 U nivers Q10 3-25 capsule by ity of (COQ-10) 00:00: mouth [place] 100 mg 00 daily. Medical softgel Branch RESTASIS 2021-0 Yes [facility] 0.05 % 3-25 ity of ophthalmic 00:00: [place] drops 00 Medical Branch coenzyme 2-0 Yes [id number] 100mg Take 1 U nivers Q10 3-25 capsule by ity of (COQ-10) 00:00: mouth [place] 100 mg 00 daily. Medical softgel Branch RESTASIS 2021-0 Yes [facility] 0.05 % 3-25 ity of ophthalmic 00:00: [place] drops 00 Medical Branch coenzyme 2-0 Yes [id number] 100mg Take 1 U nivers Q10 3-25 capsule by ity of (COQ-10) 00:00: mouth [place] 100 mg 00 daily. Medical softgel Branch RESTASIS 2021-0 Yes [facility] 0.05 % 3-25 ity of ophthalmic 00:00: [place] drops 00 Medical Branch coenzyme 2-0 Yes [id number] 100mg Take 1 U nivers Q10 3-25 capsule by ity of (COQ-10) 00:00: mouth [place] 100 mg 00 daily. Medical softgel Branch RESTASIS 2021-0 Yes [facility] 0.05 % 3-25 ity of ophthalmic 00:00: [place] drops 00 Medical Branch coenzyme 2-0 Yes [id number] 100mg Take 1 U nivers Q10 3-25 capsule by ity of (COQ-10) 00:00: mouth [place] 100 mg 00 daily. Medical softgel Branch RESTASIS 2021-0 Yes [facility] 0.05 % 3-25 ity of ophthalmic 00:00: [place] drops 00 Medical Branch coenzyme 2-0 Yes [id number] 100mg Take 1 U nivers Q10 3-25 capsule by ity of (COQ-10) 00:00: mouth [place] 100 mg 00 daily. Medical softgel Branch RESTASIS 2021-0 Yes [facility] 0.05 % 3-25 ity of ophthalmic 00:00: [place] drops 00 Medical Branch coenzyme 2-0 Yes [id number] 100mg Take 1 U nivers Q10 3-25 capsule by ity of (COQ-10) 00:00: mouth [place] 100 mg 00 daily. Medical softgel Branch RESTASIS 2021-0 Yes [facility] 0.05 % 3-25 ity of ophthalmic 00:00: [place] drops 00 Medical Branch coenzyme 2-0 Yes [id number] 100mg Take 1 U nivers Q10 3-25 capsule by ity of (COQ-10) 00:00: mouth [place] 100 mg 00 daily. Medical softgel Branch RESTASIS 2021-0 Yes [facility] 0.05 % 3-25 ity of ophthalmic 00:00: [place] drops 00 Medical Branch coenzyme 2-0 Yes [id number] 100mg Take 1 U nivers Q10 3-25 capsule by ity of (COQ-10) 00:00: mouth [place] 100 mg 00 daily. Medical softgel Branch RESTASIS 2021-0 Yes [facility] 0.05 % 3-25 ity of ophthalmic 00:00: [place] drops 00 Medical Branch coenzyme 2-0 Yes [id number] 100mg Take 1 U nivers Q10 3-25 capsule by ity of (COQ-10) 00:00: mouth [place] 100 mg 00 daily. Medical softgel Branch RESTASIS 2021-0 Yes [facility] 0.05 % 3-25 ity of ophthalmic 00:00: [place] drops 00 Medical Branch coenzyme 2-0 Yes [id number] 100mg Take 1 U nivers Q10 3-25 capsule by ity of (COQ-10) 00:00: mouth [place] 100 mg 00 daily. Medical softgel Branch RESTASIS 2021-0 Yes [facility] 0.05 % 3-25 ity of ophthalmic 00:00: [place] drops 00 Medical Branch coenzyme 2-0 Yes [id number] 100mg Take 1 U nivers Q10 3-25 capsule by ity of (COQ-10) 00:00: mouth [place] 100 mg 00 daily. Medical softgel Branch RESTASIS 2021-0 Yes [facility] 0.05 % 3-25 ity of ophthalmic 00:00: [place] drops 00 Medical Branch coenzyme 2-0 Yes [id number] 100mg Take 1 U nivers Q10 3-25 capsule by ity of (COQ-10) 00:00: mouth [place] 100 mg 00 daily. Medical softgel Branch RESTASIS 2021-0 Yes [facility] 0.05 % 3-25 ity of ophthalmic 00:00: [place] drops 00 Medical Branch coenzyme 2-0 Yes [id number] 100mg Take 1 U nivers Q10 3-25 capsule by ity of (COQ-10) 00:00: mouth [place] 100 mg 00 daily. Medical softgel Branch RESTASIS 2021-0 Yes [facility] 0.05 % 3-25 ity of ophthalmic 00:00: [place] drops 00 Medical Branch coenzyme 2-0 Yes [id number] 100mg Take 1 U nivers Q10 3-25 capsule by ity of (COQ-10) 00:00: mouth [place] 100 mg 00 daily. Medical softgel Branch RESTASIS 2021-0 Yes [facility] 0.05 % 3-25 ity of ophthalmic 00:00: [place] drops 00 Medical Branch coenzyme 2022-0 Yes [id number] 100mg Take 1 U nivers Q10 3-25 capsule by ity of (COQ-10) 00:00: mouth [place] 100 mg 00 daily. Medical softgel Branch RESTASIS 2021-0 Yes [facility] 0.05 % 3-25 ity of ophthalmic 00:00: [place] drops 00 Medical Branch coenzyme 2022-0 Yes [id number] 100mg Take 1 U nivers Q10 3-25 capsule by ity of (COQ-10) 00:00: mouth [place] 100 mg 00 daily. Medical softgel Branch RESTASIS 2021-0 Yes [facility] 0.05 % 3-25 ity of ophthalmic 00:00: [place] drops 00 Medical Branch coenzyme 2-0 Yes [id number] 100mg Take 1 U nivers Q10 3-25 capsule by ity of (COQ-10) 00:00: mouth [place] 100 mg 00 daily. Medical softgel Branch RESTASIS 2021-0 Yes [facility] 0.05 % 3-25 ity of ophthalmic 00:00: [place] drops 00 Medical Branch coenzyme 2021-0 Yes [id number] 100mg Take 1 U nivers Q10 3-25 capsule by ity of (COQ-10) 00:00: mouth [place] 100 mg 00 daily. Medical softgel Branch RESTASIS 2021-0 Yes [facility] 0.05 % 3-25 ity of ophthalmic 00:00: [place] drops 00 Medical Branch coenzyme 2021-0 Yes [id number] 100mg Take 1 U nivers Q10 3-25 capsule by ity of (COQ-10) 00:00: mouth [place] 100 mg 00 daily. Medical softgel Branch RESTASIS 2021-0 Yes [facility] 0.05 % 3-25 ity of ophthalmic 00:00: [place] drops 00 Medical Branch coenzyme 2021-0 Yes [id number] 100mg Take 1 U nivers Q10 3-25 capsule by ity of (COQ-10) 00:00: mouth [place] 100 mg 00 daily. Medical softgel Branch RESTASIS 2021-0 Yes [facility] 0.05 % 3-25 ity of ophthalmic 00:00: [place] drops 00 Medical Branch coenzyme 2-0 Yes [id number] 100mg Take 1 U nivers Q10 3-25 capsule by ity of (COQ-10) 00:00: mouth [place] 100 mg 00 daily. Medical softgel Branch RESTASIS 2021-0 Yes [facility] 0.05 % 3-25 ity of ophthalmic 00:00: [place] drops 00 Medical Branch coenzyme 2-0 Yes [id number] 100mg Take 1 U nivers Q10 3-25 capsule by ity of (COQ-10) 00:00: mouth [place] 100 mg 00 daily. Medical softgel Branch RESTASIS 2021-0 Yes [facility] 0.05 % 3-25 ity of ophthalmic 00:00: [place] drops 00 Medical Branch Insulin 2022- No [id number] Use as [facility] [place], 07-06-06 directed ity of Disposable, 00:00: 00:00 once daily [place] (RELION PEN 00 :00 to inject Med ical NEEDLES) 32 insulin; Lee ch gauge x E11.65 " Ndle blood sugar 2021- No [id number] Check [facility] diagnostic 07-06- glucose ity o f (ACCU-CHEK 00:00: 00:00 once daily [place] KWESI PLUS 00 :00 before Medical TEST STRP) breakfast; Bra nch strip ICD-10 E11.65 blood sugar 2021- No [id number] Check [facility] diagnostic 07-06 glucose ity o f (ACCU-CHEK 00:00: 00:00 once daily [place] KWESI PLUS 00 :00 before Medical TEST STRP) breakfast; Bra nch strip ICD-10 E11.65 baclofen 5 Yes 5mg Take 5 mg [facility] tablet 2-[address] [facility] insulin Yes 7U Inject 7 Method i DETEMIR 2-[address] (Levemir 00:00: [facility] tanesha FlexTouch 00 skin. l U-100 Insuln) 100 unit/mL (3 mL) insulin pen baclofen 5 Yes [id number] 5mg Take 1 [facility] mg tablet 2-24 tablet by ity o f 00:00: mouth 3 00 (three) Medical times Branch daily as needed (muscle pain or spasm). Insulin Yes [id number] 7U inject 7 Un wendy Detemir 2-24 Units ity of (LEVEMIR 00:00: [place] FLEXT[place] skin at Medical U-100 bedtime. Branch INSULN) 100 unit/mL (3 mL) injection baclofen 5 Yes [id number] 5mg Take 1 [facility] mg tablet 2-24 tablet by ity o f 00:00: mouth 3 00 (three) Medical times Branch daily as needed (muscle pain or spasm). Insulin Yes [id number] 7U inject 7 Un wendy Detemir 2-24 Units ity of (LEVEMIR 00:00: [place] FLEXT[place] 00 skin at Medical U-100 bedtime. Branch INSULN) 100 unit/mL (3 mL) injection baclofen 5 0 Yes [id number] 5mg Take 1 [facility] mg tablet 2-24 tablet by ity o f 00:00: mouth 3 [place] 00 (three) Medical times Branch daily as needed (muscle pain or spasm). Insulin 0 Yes [id number] 7U inject 7 Un wendy Detemir 2-24 Units ity of (LEVEMIR 00:00: [place] FLEXT[place] 00 skin at Medical U-100 bedtime. Branch INSULN) 100 unit/mL (3 mL) injection baclofen 5 0 Yes [id number] 5mg Take 1 [facility] mg tablet 2-24 tablet by ity o f 00:00: mouth 3 (three) Medical times Branch daily as needed (muscle pain or spasm). Insulin Yes [id number] 7U inject 7 Un wendy Detemir 2-24 Units ity of (LEVEMIR 00:00: [place] FLEXT[place] 00 skin at Medical U-100 bedtime. Branch INSULN) 100 unit/mL (3 mL) injection baclofen 5 0 Yes [id number] 5mg Take 1 [facility] mg tablet 2-24 tablet by ity o f 00:00: mouth 3 00 (three) Medical times Branch daily as needed (muscle pain or spasm). Insulin 0 Yes [id number] 7U inject 7 Un wendy Detemir 2-24 Units ity of (LEVEMIR 00:00: [place] FLEXT[place] 00 skin at Medical U-100 bedtime. Branch INSULN) 100 unit/mL (3 mL) injection baclofen 5 0 Yes [id number] 5mg Take 1 [facility] mg tablet 2-24 tablet by ity o f 00:00: mouth 3 [place] (three) Medical times Branch daily as needed (muscle pain or spasm). Insulin 0 Yes [id number] 7U inject 7 Un wendy Detemir 2-24 Units ity of (LEVEMIR 00:00: [place] FLEXTOU[place] 00 skin at Medical U-100 bedtime. Branch INSULN) 100 unit/mL (3 mL) injection Insulin 0 Yes [id number] 7U inject 7 Un wendy Detemir 2-24 Units ity of (LEVEMIR 00:00: [place] FLEXTOUCH 00 skin at Medical U-100 bedtime. Branch INSULN) 100 unit/mL (3 mL) injection Insulin 0 Yes [id number] 7U inject 7 Un wendy Detemir 2-24 Units ity of (LEVEMIR 00:00: [place] FLEXTOU[place] 00 skin at Medical U-100 bedtime. Branch INSULN) 100 unit/mL (3 mL) injection Insulin Yes [id number] 7U inject 7 Un wendy Detemir 2-24 Units ity of (LEVEMIR 00:00: [place] FLEXTOUCH 00 skin at Medical U-100 bedtime. Branch INSULN) 100 unit/mL (3 mL) injection Insulin Yes [id number] 7U inject 7 Un wendy Detemir 2-24 Units ity of (LEVEMIR 00:00: [place] FLEXTOU[place] 00 skin at Medical U-100 bedtime. Branch INSULN) 100 unit/mL (3 mL) injection Insulin Yes [id number] 7U inject 7 Un wendy Detemir 2-24 Units ity of (LEVEMIR 00:00: [place] FLEXTOU[place] 00 skin at Medical U-100 bedtime. Branch INSULN) 100 unit/mL (3 mL) injection Insulin 0 Yes [id number] 7U inject 7 Un wendy Detemir 2-24 Units ity of (LEVEMIR 00:00: [place] FLEXTOUCH 00 skin at Medical U-100 bedtime. Branch INSULN) 100 unit/mL (3 mL) injection Insulin 0 Yes [id number] 7U inject 7 Un wendy Detemir 2-24 Units ity of (LEVEMIR 00:00: [place] FLEXTOU[place] 00 skin at Medical U-100 bedtime. Branch INSULN) 100 unit/mL (3 mL) injection Insulin 0 Yes [id number] 7U inject 7 Un wendy Detemir 2-24 Units ity of (LEVEMIR 00:00: [place] FLEXTOUCH 00 skin at Medical U-100 bedtime. Branch INSULN) 100 unit/mL (3 mL) injection Insulin 0 Yes [id number] 7U inject 7 Un wendy Detemir 2-24 Units ity of (LEVEMIR 00:00: [place] FLEXTOUCH 00 skin at Medical U-100 bedtime. Branch INSULN) 100 unit/mL (3 mL) injection Insulin 0 Yes [id number] 7U inject 7 Un wendy Detemir 2-24 Units ity of (LEVEMIR 00:00: [place] FLEXTOU[place] 00 skin at Medical U-100 bedtime. Branch INSULN) 100 unit/mL (3 mL) injection Insulin 0 Yes [id number] 7U inject 7 Un wendy Detemir 2-24 Units ity of (LEVEMIR 00:00: [place] FLEXTOU[place] 00 skin at Medical U-100 bedtime. Branch INSULN) 100 unit/mL (3 mL) injection Insulin 0 Yes [id number] 7U inject 7 Un wendy Detemir 2-24 Units ity of (LEVEMIR 00:00: [place] FLEXTOUCH 00 skin at Medical U-100 bedtime. Branch INSULN) 100 unit/mL (3 mL) injection Insulin 0 Yes [id number] 7U inject 7 Un wendy Detemir 2-24 Units ity of (LEVEMIR 00:00: [place] FLEXTOU[place] 00 skin at Medical U-100 bedtime. Branch INSULN) 100 unit/mL (3 mL) injection Insulin 0 Yes [id number] 7U inject 7 Un wendy Detemir 2-24 Units ity of (LEVEMIR 00:00: [place]LEXT[place] 00 skin at Medical U-100 bedtime. Branch INSULN) 100 unit/mL (3 mL) injection Insulin 0 Yes [id number] 7U inject 7 Un wendy Detemir 2-24 Units ity of (LEVEMIR 00:00: [place] FLEXT[place] 00 skin at Medical U-100 bedtime. Branch INSULN) 100 unit/mL (3 mL) injection Insulin 0 Yes [id number] 7U inject 7 Un wendy Detemir 2-24 Units ity of (LEVEMIR 00:00: [place] FLEXTOUCH 00 skin at Medical U-100 bedtime. Branch INSULN) 100 unit/mL (3 mL) injection Insulin Yes [id number] 7U inject 7 Un wendy Detemir 2-24 Units ity of (LEVEMIR 00:00: [place] FLEXTOU[place] 00 skin at Medical U-100 bedtime. Branch INSULN) 100 unit/mL (3 mL) injection Insulin Yes [id number] 7U inject 7 Un wendy Detemir 2-24 Units ity of (LEVEMIR 00:00: [place] FLEXT[place] 00 skin at Medical U-100 bedtime. Branch INSULN) 100 unit/mL (3 mL) injection Insulin Yes [id number] 7U inject 7 Un wendy Detemir 2-24 Units ity of (LEVEMIR 00:00: [place]LEXT[place] 00 skin at Medical U-100 bedtime. Branch INSULN) 100 unit/mL (3 mL) injection Insulin Yes [id number] 7U inject 7 Un wendy Detemir 2-24 Units ity of (LEVEMIR 00:00: [place]LEXT[place] 00 skin at Medical U-100 bedtime. Branch INSULN) 100 unit/mL (3 mL) injection Insulin Yes [id number] 7U inject 7 Un wendy Detemir 2-24 Units ity of (LEVEMIR 00:00: [place] FLEXT[place] 00 skin at Medical U-100 bedtime. Branch INSULN) 100 unit/mL (3 mL) injection Insulin Yes [id number] 7U inject 7 Un wendy Detemir 2-24 Units ity of (LEVEMIR 00:00: [place]LEXT[place] 00 skin at Medical U-100 bedtime. Branch INSULN) 100 unit/mL (3 mL) injection Insulin Yes [id number] 7U inject 7 Un wendy Detemir 2-24 Units ity of (LEVEMIR 00:00: [place]LEXT[place] 00 skin at Medical U-100 bedtime. Branch INSULN) 100 unit/mL (3 mL) injection Insulin Yes [id number] 7U inject 7 Un wendy Detemir 2-24 Units ity of (LEVEMIR 00:00: [place]LEXT[place] 00 skin at Medical U-100 bedtime. Branch INSULN) 100 unit/mL (3 mL) injection Insulin Yes [id number] 7U inject 7 Un wendy Detemir 2-24 Units ity of (LEVEMIR 00:00: [place]LE[place] 00 skin at Medical U-100 bedtime. Branch INSULN) 100 unit/mL (3 mL) injection Insulin Yes [id number] 7U inject 7 Un wendy Detemir 2-24 Units ity of (LEVEMIR 00:00: [place]LE[place] 00 skin at Medical U-100 bedtime. Branch INSULN) 100 unit/mL (3 mL) injection Insulin Yes [id number] 7U inject 7 Un wendy Detemir 2-24 Units ity of (LEVEMIR 00:00: [place]LE[place] 00 skin at Medical U-100 bedtime. Branch INSULN) 100 unit/mL (3 mL) injection Insulin Yes [id number] 7U inject 7 Un wendy Detemir 2-24 Units ity of (LEVEMIR 00:00: [place]LEXT[place] 00 skin at Medical U-100 bedtime. Branch INSULN) 100 unit/mL (3 mL) injection Insulin Yes [id number] 7U inject 7 Un wendy Detemir 2-24 Units ity of (LEVEMIR 00:00: [place]LEXT[place] 00 skin at Medical U-100 bedtime. Branch INSULN) 100 unit/mL (3 mL) injection Insulin Yes [id number] 7U inject 7 Un wendy Detemir 2-24 Units ity of (LEVEMIR 00:00: [place]LE[place] 00 skin at Medical U-100 bedtime. Branch INSULN) 100 unit/mL (3 mL) injection Insulin Yes [id number] 7U inject 7 Un wendy Detemir 2-24 Units ity of (LEVEMIR 00:00: [place]LE[place] 00 skin at Medical U-100 bedtime. Branch INSULN) 100 unit/mL (3 mL) injection Insulin Yes [id number] 7U inject 7 Un wendy Detemir 2-24 Units ity of (LEVEMIR 00:00: [place]LE[place] 00 skin at Medical U-100 bedtime. Branch INSULN) 100 unit/mL (3 mL) injection Insulin Yes [id number] 7U inject 7 Un wendy Detemir 2-24 Units ity of (LEVEMIR 00:00: [place] FLEXTOU[place] 00 skin at Medical U-100 bedtime. Branch INSULN) 100 unit/mL (3 mL) injection Insulin Yes [id number] 7U inject 7 Un wendy Detemir 2-24 Units ity of (LEVEMIR 00:00: [place]LE[place] 00 skin at Medical U-100 bedtime. Branch INSULN) 100 unit/mL (3 mL) injection Insulin Yes [id number] 7U inject 7 Un wendy Detemir 2-24 Units ity of (LEVEMIR 00:00: [place]LE[place] 00 skin at Medical U-100 bedtime. Branch INSULN) 100 unit/mL (3 mL) injection Insulin Yes [id number] 7U inject 7 Un wendy Detemir 2-24 Units ity of (LEVEMIR 00:00: [place]LE[place] 00 skin at Medical U-100 bedtime. Branch INSULN) 100 unit/mL (3 mL) injection Insulin Yes [id number] 7U inject 7 Un wendy Detemir 2-24 Units ity of (LEVEMIR 00:00: [place]LE[place] 00 skin at Medical U-100 bedtime. Branch INSULN) 100 unit/mL (3 mL) injection Insulin Yes [id number] 7U inject 7 Un wendy Detemir 2-24 Units ity of (LEVEMIR 00:00: [place]LEXT[place] 00 skin at Medical U-100 bedtime. Branch INSULN) 100 unit/mL (3 mL) injection Insulin Yes [id number] 7U inject 7 Un wendy Detemir 2-24 Units ity of (LEVEMIR 00:00: [place]LEXT[place] 00 skin at Medical U-100 bedtime. Branch INSULN) 100 unit/mL (3 mL) injection Insulin 0 Yes [id number] 7U inject 7 Un wendy Detemir 2-24 Units ity of (LEVEMIR 00:00: [place]LE[place] 00 skin at Medical U-100 bedtime. Branch INSULN) 100 unit/mL (3 mL) injection Insulin Yes [id number] 7U inject 7 Un wendy Detemir 2-24 Units ity of (LEVEMIR 00:00: [place]LEXT[place] 00 skin at Medical U-100 bedtime. Branch INSULN) 100 unit/mL (3 mL) injection Insulin Yes [id number] 7U inject 7 Un wendy Detemir 2-24 Units ity of (LEVEMIR 00:00: [place]LE[place] 00 skin at Medical U-100 bedtime. Branch INSULN) 100 unit/mL (3 mL) injection Insulin Yes [id number] 7U inject 7 Un wendy Detemir 2-24 Units ity of (LEVEMIR 00:00: [place]LE[place] 00 skin at Medical U-100 bedtime. Branch INSULN) 100 unit/mL (3 mL) injection Insulin Yes [id number] 7U inject 7 Un wendy Detemir 2-24 Units ity of (LEVEMIR 00:00: [place]LEXT[place] 00 skin at Medical U-100 bedtime. Branch INSULN) 100 unit/mL (3 mL) injection Insulin 0 Yes [id number] 7U inject 7 Un wendy Detemir 2-24 Units ity of (LEVEMIR 00:00: [place]LE[place] 00 skin at Medical U-100 bedtime. Branch INSULN) 100 unit/mL (3 mL) injection Insulin Yes [id number] 7U inject 7 Un wendy Detemir 2-24 Units ity of (LEVEMIR 00:00: [place]LE[place] 00 skin at Medical U-100 bedtime. Branch INSULN) 100 unit/mL (3 mL) injection Insulin Yes [id number] 7U inject 7 Un wendy Detemir 2-24 Units ity of (LEVEMIR 00:00: [place]LE[place] 00 skin at Medical U-100 bedtime. Branch INSULN) 100 unit/mL (3 mL) injection Insulin 0 Yes [id number] 7U inject 7 Un wendy Detemir 2-24 Units ity of (LEVEMIR 00:00: [place]LE[place] 00 skin at Medical U-100 bedtime. Branch INSULN) 100 unit/mL (3 mL) injection Insulin 0 Yes [id number] 7U inject 7 Un wendy Detemir 2-24 Units ity of (LEVEMIR 00:00: [place]LE[place] 00 skin at Medical U-100 bedtime. Branch INSULN) 100 unit/mL (3 mL) injection Insulin Yes [id number] 7U inject 7 Un wendy Detemir 2-24 Units ity of (LEVEMIR 00:00: [place]LE[place] 00 skin at Medical U-100 bedtime. Branch INSULN) 100 unit/mL (3 mL) injection Insulin 0 Yes [id number] 7U inject 7 Un wendy Detemir 2-24 Units ity of (LEVEMIR 00:00: [place]LE[place] 00 skin at Medical U-100 bedtime. Branch INSULN) 100 unit/mL (3 mL) injection Insulin 0 Yes [id number] 7U inject 7 Un wendy Detemir 2-24 Units ity of (LEVEMIR 00:00: [place]LE[place] 00 skin at Medical U-100 bedtime. Branch INSULN) 100 unit/mL (3 mL) injection Insulin 0 Yes [id number] 7U inject 7 Un wendy Detemir 2-24 Units ity of (LEVEMIR 00:00: [place]LE[place] 00 skin at Medical U-100 bedtime. Branch INSULN) 100 unit/mL (3 mL) injection Insulin 2021-0 Yes [id number] 7U inject 7 Un wendy Detemir 2-24 Units ity of (LEVEMIR 00:00: [place]LE[place] 00 skin at Medical U-100 bedtime. Branch INSULN) 100 unit/mL (3 mL) injection Insulin Yes [id number] 7U inject 7 Un wendy Detemir 2-24 Units ity of (LEVEMIR 00:00: [place]LE[place] 00 skin at Medical U-100 bedtime. Branch INSULN) 100 unit/mL (3 mL) injection Insulin Yes [id number] 7U inject 7 Un wendy Detemir 2-24 Units ity of (LEVEMIR 00:00: [place]LE[place] skin at Medical U-100 bedtime. Branch INSULN) 100 unit/mL (3 mL) injection Insulin Yes [id number] 7U inject 7 Un wendy [facility] 2-24 Units [facility] ([place] [facility]-100 bedtime. Branch INSULN) 100 unit/mL (3 mL) injection Insulin Yes [id number] 7U inject 7 Un [place] 2-24 Units [facility]y of ([place] [facility] [place] [facility]-100 bedtime. Branch INSULN) 100 unit/mL (3 mL) injection Insulin Yes [id number] 7U inject 7 Un [place] 2-24 Units [facility]y of ([place] [facility]-100 bedtime. Branch INSULN) 100 unit/mL (3 mL) injection Insulin Yes [id number] 7U inject 7 Un [place] 2-24 Units [facility]y of ([place] [facility]-100 bedtime. Branch INSULN) 100 unit/mL (3 mL) injection Insulin Yes [id number] 7U inject 7 Un [place] 2-24 Units [facility]y of ([place] [facility] at [facility] U-100 bedtime. Branch INSULN) 100 unit/mL (3 mL) injection Insulin Yes [id number] 7U inject 7 Un [place] 2-24 Units [facility]y of ([place] [facility] at [facility] U-100 bedtime. Branch INSULN) 100 unit/mL (3 mL) injection Insulin 0 Yes [id number] 7U inject 7 Un [place] 2-24 Units ity of ([place] 00:[place] [facility] at [facility] U-100 bedtime. Branch INSULN) 100 unit/mL (3 mL) injection Insulin 0 Yes [id number] 7U inject 7 Un [place] 2-24 Units ity of ([place] 00:[place]: [place] [facility] at [facility] U-100 bedtime. Branch INSULN) 100 unit/mL (3 mL) injection Insulin 0 Yes [id number] 7U inject 7 Un w[facility] 2-24 Units ity of ([place] 00:[place]: [place] skin at [facility] U-100 bedtime. Branch INSULN) 100 unit/mL (3 mL) injection Insulin 0 Yes [id number] 7U inject 7 Un w[place] 2-24 Units ity of ([place] 00:[place]: [place] skin at [facility] U-100 bedtime. Branch INSULN) 100 unit/mL (3 mL) injection Insulin 0 Yes [id number] 7U inject 7 Un [facility] Detem[place] 2-24 Units ity of ([place] 00:[place]: [place] skin at Medical U-100 bedtime. Branch INSULN) 100 unit/mL (3 mL) injection Insulin 2021-0 Yes [id number] 7U inject 7 Un [facility]em[place] 2-24 Units ity of ([place] 00:[place] skin at [facility] U-100 bedtime. Branch INSULN) 100 unit/mL (3 mL) injection Insulin 2021-0 Yes [id number] 7U inject 7 Un [facility] Detem[place] 2-24 Units ity of ([place] 00:[place]: [place] skin at [facility] U-100 bedtime. Branch INSULN) 100 unit/mL (3 mL) injection Insulin 2022-0 Yes [id number] 7U inject 7 Un w[facility] Detem[place] 2-24 Units ity of ([place] 00:[place]: [place] skin at [facility] U-100 bedtime. Branch INSULN) 100 unit/mL (3 mL) injection Insulin 0 Yes [id number] 7U inject 7 Un [facility] [facility]em[place] 2-24 Units ity of ([place] 00:[place]: [place] skin at [facility] U-100 bedtime. Branch INSULN) 100 unit/mL (3 mL) injection Insulin Yes [id number] 7U inject 7 Un w[facility]em[place] 2-24 Units ity of ([place] 00:[place]: [place] [facility] at [facility] U-100 bedtime. Branch INSULN) 100 unit/mL (3 mL) injection Insulin Yes [id number] 7U inject 7 Un w[facility] Detem[place] 2-24 Units ity of ([place] 00:[place]: [place] skin at Medical U-100 bedtime. Branch INSULN) 100 unit/mL (3 mL) injection Insulin Yes [id number] 7U inject 7 Un w[facility] Detem[place] 2-24 Units ity of ([place] 00:[place]: [place] skin at [facility] U-100 bedtime. Branch INSULN) 100 unit/mL (3 mL) injection Insulin Yes [id number] 7U inject 7 Un w[facility]em[place] 2-24 Units ity of ([place] 00:[place]: [place] skin at Medical U-100 bedtime. Branch INSULN) 100 unit/mL (3 mL) injection Insulin 0 Yes [id number] 7U inject 7 Un wendy Detemir 2-24 Units ity of ([place] 00:[place]: [place] skin at Medical U-100 bedtime. Branch INSULN) 100 unit/mL (3 mL) injection Insulin 0 Yes [id number] 7U inject 7 Un w[facility] Detem[place] 2-24 Units ity of ([place] 00:[place]: [place] skin at Medical U-100 bedtime. Branch INSULN) 100 unit/mL (3 mL) injection Insulin 0 Yes [id number] 7U inject 7 Un w[facility] Detem[place] 2-24 Units ity of ([place] 00:[place]: [place] skin at Medical U-100 bedtime. Branch INSULN) 100 unit/mL (3 mL) injection Insulin 0 Yes [id number] 7U inject 7 Un [place] Detemir 2-24 Units ity of ([place] 00:[place]: [place] skin at Medical U-100 bedtime. Branch INSULN) 100 unit/mL (3 mL) injection Insulin 0 Yes [id number] 7U inject 7 Un w[facility] Detemir 2-24 Units ity of ([place] 00:[place]: [place] skin at Medical U-100 bedtime. Branch INSULN) 100 unit/mL (3 mL) injection Insulin Yes [id number] 7U inject 7 Un w[place] Detemir 2-24 Units ity of ([place] 00:[place]: [place] skin at Medical U-100 bedtime. Branch INSULN) 100 unit/mL (3 mL) injection Insulin 0 Yes [id number] 7U inject 7 Un [place] Detemir 2-24 Units ity of ([place] 00:[place] [facility] at [facility] U-100 bedtime. Branch INSULN) 100 unit/mL (3 mL) injection baclofen 5 Yes 5mg Take 5 mg [facility] mg tablet 2-[address] [facility] insulin 0 Yes 7U Inject 7 Method i DETEMIR 2-[address] ([facility] 00:00: [facility] the [facility] FlexTouch 00 skin. l U-100 Insuln) 100 unit/mL (3 mL) insulin pen Insulin 0 2022- No [id number] 7U inject 7 U nivers Detemir 2-24 04-28 Units ity of (LEVEMIR 00:00: 00:00 under the [place] 00 :00 skin at Medical U-100 bedtime. Branch INSULN) 100 unit/mL (3 mL) injection Insulin 2022- No [id number] 7U inject 7 U nivers Detemir 06-07-28 Units ity of (LEVEMIR 00:00: 00:00 under [facility] [place] [facility] 00 :00 skin at Medical U-100 bedtime. Branch INSULN) 100 unit/mL (3 mL) injection baclofen 5 2021- No [id number] 5mg Take 1 [facility] mg tablet 06-07 tablet by ity of 00:00: 00:00 mouth 3 [place] 00 :00 (three) Medical times [place] daily as needed (muscle pain or spasm). baclofen 5 2021- No [id number] 5mg Take 1 [facility] mg tablet 06-07 tablet by ity of 00:00: 00:00 mouth 3 [place] 00 :00 (three) Medical times [place] daily as needed (muscle pain or spasm). baclofen 5 2021- No [id number] 5mg Take 1 [facility] mg tablet 06-07 tablet by ity of 00:00: 00:00 mouth 3 [place] 00 :00 (three) Medical times [place] daily as needed (muscle pain or spasm). linaCLOtide 2020-04 Yes [id number] 290ug Take 1 Univers (LINZESS) 2-28 capsule by ity of 290 mcg Cap 00:00: mouth [place] 00 daily. [facility] Branch linaCLOtide 2020-04 Yes [id number] 290ug Take 1 Univers (LINZESS) 2-28 capsule by ity of 290 mcg Cap 00:00: mouth [place] 00 daily. [facility] linaCLOtide 2020-04 Yes [id number] 290ug Take 1 Univers (LINZESS) 2-28 capsule by ity of 290 mcg Cap 00:00: mouth [place] 00 daily. [facility] linaCLOtide 2020-04 Yes [id number] 290ug Take 1 Univers (LINZESS) 2-28 capsule by ity of 290 mcg Cap 00:00: mouth [place] 00 daily. [facility] linaCLOtide 2020-04 Yes [id number] 290ug Take 1 Univers (LINZESS) 2-28 capsule by ity of 290 mcg Cap 00:00: mouth [place] 00 daily. [facility] linaCLOtide 2020-04 Yes [id number] 290ug Take 1 Univers (LINZESS) 2-28 capsule by ity of 290 mcg Cap 00:00: mouth [place] 00 daily. Medical Branch linaCLOtide 2020-04 Yes [id number] 290ug Take 1 [facility] (LINZESS) 2-28 capsule by ity of 290 mcg Cap 00:00: mouth [place] 00 daily. Medical Branch linaCLOtide 2020-04 Yes [id number] 290ug Take 1 [facility] (LINZESS) 2-28 capsule by ity of 290 mcg Cap 00:00: mouth [place] 00 daily. Medical Branch linaCLOtide 2020-04 Yes [id number] 290ug Take 1 [facility] (LINZESS) 2-28 capsule by ity of 290 mcg Cap 00:00: mouth [place] 00 daily. Medical Branch linaCLOtide 2020-04 Yes [id number] 290ug Take 1 [facility] (LINZESS) 2-28 capsule by ity of 290 mcg Cap 00:00: mouth [place] 00 daily. Medical Branch linaCLOtide 2020-04 Yes [id number] 290ug Take 1 [facility] (LINZESS) 2-28 capsule by ity of 290 mcg Cap 00:00: mouth [place] 00 daily. Medical Branch linaCLOtide 2020-04 Yes [id number] 290ug Take 1 Univers (LINZESS) 2-28 capsule by ity of 290 mcg Cap 00:00: mouth [place] 00 daily. Medical Branch linaCLOtide 2020-04 Yes [id number] 290ug Take 1 [facility] (LINZESS) 2-28 capsule by ity of 290 mcg Cap 00:00: mouth [place] 00 daily. Medical Branch linaCLOtide 2020-04 Yes [id number] 290ug Take 1 [facility] (LINZESS) 2-28 capsule by ity of 290 mcg Cap 00:00: mouth [place] 00 daily. Medical Branch linaCLOtide 2020-04 Yes [id number] 290ug Take 1 [facility] (LINZESS) 2-28 capsule by ity of 290 mcg Cap 00:00: mouth [place] 00 daily. Medical Branch linaCLOtide 2020-04 Yes [id number] 290ug Take 1 [facility] (LINZESS) 2-28 capsule by ity of 290 mcg Cap 00:00: mouth [place] 00 daily. Medical Branch linaCLOtide 2020-04 Yes [id number] 290ug Take 1 [facility] (LINZESS) 2-28 capsule by ity of 290 mcg Cap 00:00: mouth [place] 00 daily. Medical Branch linaCLOtide 2020-04 Yes [id number] 290ug Take 1 Univers (LINZESS) 2-28 capsule by ity of 290 mcg Cap 00:00: mouth [place] 00 daily. Medical Branch linaCLOtide 2020-04 Yes [id number] 290ug Take 1 Univers (LINZESS) 2-28 capsule by ity of 290 mcg Cap 00:00: mouth [place] 00 daily. Medical Branch linaCLOtide 2020-04 Yes [id number] 290ug Take 1 Univers (LINZESS) 2-28 capsule by ity of 290 mcg Cap 00:00: mouth [place] 00 daily. Medical Branch linaCLOtide 2020-04 Yes [id number] 290ug Take 1 [facility] (LINZESS) 2-28 capsule by ity of 290 mcg Cap 00:00: mouth [place] 00 daily. Medical Branch linaCLOtide 2020-04 Yes [id number] 290ug Take 1 [facility] (LINZESS) 2-28 capsule by ity of 290 mcg Cap 00:00: mouth [place] 00 daily. Medical Branch linaCLOtide 2020-04 Yes [id number] 290ug Take 1 [facility] (LINZESS) 2-28 capsule by ity of 290 mcg Cap 00:00: mouth [place] 00 daily. Medical Branch linaCLOtide 2020-04 Yes [id number] 290ug Take 1 Univers (LINZESS) 2-28 capsule by ity of 290 mcg Cap 00:00: mouth [place] 00 daily. Medical Branch linaCLOtide 2020-04 Yes [id number] 290ug Take 1 Univers (LINZESS) 2-28 capsule by ity of 290 mcg Cap 00:00: mouth [place] 00 daily. Medical Branch linaCLOtide 2020-04 Yes [id number] 290ug Take 1 Univers (LINZESS) 2-28 capsule by ity of 290 mcg Cap 00:00: mouth [place] 00 daily. Medical Branch linaCLOtide 2020-04 Yes [id number] 290ug Take 1 Univers (LINZESS) 2-28 capsule by ity of 290 mcg Cap 00:00: mouth [place] 00 daily. Medical Branch linaCLOtide 2020-04 Yes [id number] 290ug Take 1 Univers (LINZESS) 2-28 capsule by ity of 290 mcg Cap 00:00: mouth [place] 00 daily. Medical Branch linaCLOtide 2020-04 Yes [id number] 290ug Take 1 Univers (LINZESS) 2-28 capsule by ity of 290 mcg Cap 00:00: mouth [place] 00 daily. Medical Branch linaCLOtide 2020-04 Yes [id number] 290ug Take 1 Univers (LINZESS) 2-28 capsule by ity of 290 mcg Cap 00:00: mouth [place] 00 daily. Medical Branch linaCLOtide 2020-04 Yes [id number] 290ug Take 1 Univers (LINZESS) 2-28 capsule by ity of 290 mcg Cap 00:00: mouth [place] 00 daily. Medical Branch linaCLOtide 2020-04 Yes [id number] 290ug Take 1 Univers (LINZESS) 2-28 capsule by ity of 290 mcg Cap 00:00: mouth [place] 00 daily. Medical Branch linaCLOtide 2020-04 Yes [id number] 290ug Take 1 Univers (LINZESS) 2-28 capsule by ity of 290 mcg Cap 00:00: mouth [place] 00 daily. Medical Branch linaCLOtide 2020-04 Yes [id number] 290ug Take 1 Univers (LINZESS) 2-28 capsule by ity of 290 mcg Cap 00:00: mouth [place] 00 daily. Medical Branch linaCLOtide 2020-04 Yes [id number] 290ug Take 1 Univers (LINZESS) 2-28 capsule by ity of 290 mcg Cap 00:00: mouth [place] 00 daily. Medical Branch linaCLOtide 2020-04 Yes [id number] 290ug Take 1 Univers (LINZESS) 2-28 capsule by ity of 290 mcg Cap 00:00: mouth [place] 00 daily. Medical Branch linaCLOtide 2020-04 Yes [id number] 290ug Take 1 Univers (LINZESS) 2-28 capsule by ity of 290 mcg Cap 00:00: mouth [place] 00 daily. Medical Branch linaCLOtide 2020-04 Yes [id number] 290ug Take 1 Univers (LINZESS) 2-28 capsule by ity of 290 mcg Cap 00:00: mouth [place] 00 daily. Medical Branch linaCLOtide 2020-04 Yes [id number] 290ug Take 1 [facility] (LINZESS) 2-28 capsule by ity of 290 mcg Cap 00:00: mouth [place] 00 daily. Medical Branch linaCLOtide 2020-04 Yes [id number] 290ug Take 1 Univers (LINZESS) 2-28 capsule by ity of 290 mcg Cap 00:00: mouth [place] 00 daily. Medical Branch linaCLOtide 2020-04 Yes [id number] 290ug Take 1 Univers (LINZESS) 2-28 capsule by ity of 290 mcg Cap 00:00: mouth [place] 00 daily. Medical Branch linaCLOtide 2020-04 Yes [id number] 290ug Take 1 Univers (LINZESS) 2-28 capsule by ity of 290 mcg Cap 00:00: mouth [place] 00 daily. Medical Branch linaCLOtide 2020-04 Yes [id number] 290ug Take 1 Univers (LINZESS) 2-28 capsule by ity of 290 mcg Cap 00:00: mouth [place] 00 daily. Medical Branch linaCLOtide 2020-04 Yes [id number] 290ug Take 1 Univers (LINZESS) 2-28 capsule by ity of 290 mcg Cap 00:00: mouth [place] 00 daily. Medical Branch linaCLOtide 2020-04 Yes [id number] 290ug Take 1 Univers (LINZESS) 2-28 capsule by ity of 290 mcg Cap 00:00: mouth [place] 00 daily. Medical Branch linaCLOtide 2020-04 Yes [id number] 290ug Take 1 Univers (LINZESS) 2-28 capsule by ity of 290 mcg Cap 00:00: mouth [place] 00 daily. Medical Branch linaCLOtide 2020-04 Yes [id number] 290ug Take 1 [facility] (LINZESS) 2-28 capsule by ity of 290 mcg Cap 00:00: mouth [place] 00 daily. Medical Branch linaCLOtide 2020-04 Yes [id number] 290ug Take 1 Univers (LINZESS) 2-28 capsule by ity of 290 mcg Cap 00:00: mouth [place] 00 daily. Medical Branch linaCLOtide 2020-04 Yes [id number] 290ug Take 1 [facility] (LINZESS) 2-28 capsule by ity of 290 mcg Cap 00:00: mouth [place] 00 daily. Medical Branch linaCLOtide 2020-04 Yes [id number] 290ug Take 1 [facility] (LINZESS) 2-28 capsule by ity of 290 mcg Cap 00:00: mouth [place] 00 daily. Medical Branch linaCLOtide 2020-04 Yes [id number] 290ug Take 1 [facility] (LINZESS) 2-28 capsule by ity of 290 mcg Cap 00:00: mouth [place] 00 daily. Medical Branch linaCLOtide 2020-04 Yes [id number] 290ug Take 1 Univers (LINZESS) 2-28 capsule by ity of 290 mcg Cap 00:00: mouth [place] 00 daily. Medical Branch linaCLOtide 2020-04 Yes [id number] 290ug Take 1 Univers (LINZESS) 2-28 capsule by ity of 290 mcg Cap 00:00: mouth [place] 00 daily. Medical Branch linaCLOtide 2020-04 Yes [id number] 290ug Take 1 Univers (LINZESS) 2-28 capsule by ity of 290 mcg Cap 00:00: mouth [place] 00 daily. Medical Branch linaCLOtide 2020-04 Yes [id number] 290ug Take 1 [facility] (LINZESS) 2-28 capsule by ity of 290 mcg Cap 00:00: mouth [place] 00 daily. Medical Branch linaCLOtide 2020-04 Yes [id number] 290ug Take 1 [facility] (LINZESS) 2-28 capsule by ity of 290 mcg Cap 00:00: mouth [place] 00 daily. Medical Branch linaCLOtide 2020-04 Yes [id number] 290ug Take 1 [facility] (LINZESS) 2-28 capsule by ity of 290 mcg Cap 00:00: mouth [place] 00 daily. Medical Branch linaCLOtide 2020-04 Yes [id number] 290ug Take 1 [facility] (LINZESS) 2-28 capsule by ity of 290 mcg Cap 00:00: mouth [place] 00 daily. Medical Branch linaCLOtide 2020-04 Yes [id number] 290ug Take 1 [facility] (LINZESS) 2-28 capsule by ity of 290 mcg Cap 00:00: mouth [place] 00 daily. Medical Branch linaCLOtide 2020-04 Yes [id number] 290ug Take 1 [facility] (LINZESS) 2-28 capsule by ity of 290 mcg Cap 00:00: mouth [place] 00 daily. Medical Branch linaCLOtide 2020-04 Yes [id number] 290ug Take 1 [facility] (LINZESS) 2-28 capsule by ity of 290 mcg Cap 00:00: mouth [place] 00 daily. Medical Branch linaCLOtide 2020-04 Yes [id number] 290ug Take 1 [facility] (LINZESS) 2-28 capsule by ity of 290 mcg Cap 00:00: mouth [place] 00 daily. Medical Branch linaCLOtide 2020-04 Yes [id number] 290ug Take 1 [facility] (LINZESS) 2-28 capsule by ity of 290 mcg Cap 00:00: mouth [place] 00 daily. Medical Branch linaCLOtide 2020-04 Yes [id number] 290ug Take 1 [facility] (LINZESS) 2-28 capsule by ity of 290 mcg Cap 00:00: mouth [place] 00 daily. Medical Branch linaCLOtide 2020-04 Yes [id number] 290ug Take 1 [facility] (LINZESS) 2-28 capsule by ity of 290 mcg Cap 00:00: mouth [place] 00 daily. Medical Branch linaCLOtide 2020-04 Yes [id number] 290ug Take 1 [facility] (LINZESS) 2-28 capsule by ity of 290 mcg Cap 00:00: mouth [place] 00 daily. Medical Branch linaCLOtide 2020-04 Yes [id number] 290ug Take 1 [facility] (LINZESS) 2-28 capsule by ity of 290 mcg Cap 00:00: mouth [place] 00 daily. Medical Branch linaCLOtide 2020-04 Yes [id number] 290ug Take 1 [facility] (LINZESS) 2-28 capsule by ity of 290 mcg Cap 00:00: mouth [place] 00 daily. Medical Branch linaCLOtide 2020-04 Yes [id number] 290ug Take 1 [facility] (LINZESS) 2-28 capsule by ity of 290 mcg Cap 00:00: mouth [place] 00 daily. Medical Branch linaCLOtide 2020-04 Yes [id number] 290ug Take 1 [facility] (LINZESS) 2-28 capsule by ity of 290 mcg Cap 00:00: mouth [place] 00 daily. Medical Branch linaCLOtide 2020-04 Yes [id number] 290ug Take 1 [facility] (LINZESS) 2-28 capsule by ity of 290 mcg Cap 00:00: mouth [place] 00 daily. Medical Branch linaCLOtide 2020-04 Yes [id number] 290ug Take 1 [facility] (LINZESS) 2-28 capsule by ity of 290 mcg Cap 00:00: mouth [place] 00 daily. Medical Branch linaCLOtide 2020-04 Yes [id number] 290ug Take 1 [facility] (LINZESS) 2-28 capsule by ity of 290 mcg Cap 00:00: mouth [place] 00 daily. Medical Branch linaCLOtide 2020-04 Yes [id number] 290ug Take 1 [facility] (LINZESS) 2-28 capsule by ity of 290 mcg Cap 00:00: mouth [place] 00 daily. Medical Branch linaCLOtide 2020-04 Yes [id number] 290ug Take 1 [facility] (LINZESS) 2-28 capsule by ity of 290 mcg Cap 00:00: mouth [place] 00 daily. Medical Branch linaCLOtide 2020-04 Yes [id number] 290ug Take 1 [facility] (LINZESS) 2-28 capsule by ity of 290 mcg Cap 00:00: mouth [place] 00 daily. Medical Branch linaCLOtide 2020-04 Yes [id number] 290ug Take 1 [facility] (LINZESS) 2-28 capsule by ity of 290 mcg Cap 00:00: mouth [place] 00 daily. Medical Branch linaCLOtide 2020-04 Yes [id number] 290ug Take 1 [facility] (LINZESS) 2-28 capsule by ity of 290 mcg Cap 00:00: mouth [place] 00 daily. Medical Branch linaCLOtide 2020-04 Yes [id number] 290ug Take 1 [facility] (LINZESS) 2-28 capsule by ity of 290 mcg Cap 00:00: mouth [place] 00 daily. Medical Branch linaCLOtide 2020-04 Yes [id number] 290ug Take 1 [facility] (LINZESS) 2-28 capsule by ity of 290 mcg Cap 00:00: mouth [place] 00 daily. Medical Branch linaCLOtide 2020-04 Yes [id number] 290ug Take 1 [facility] (LINZESS) 2-28 capsule by ity of 290 mcg Cap 00:00: mouth [place] 00 daily. Medical Branch linaCLOtide 2020-04 Yes [id number] 290ug Take 1 [facility] (LINZESS) 2-28 capsule by ity of 290 mcg Cap 00:00: mouth [place] 00 daily. Medical Branch linaCLOtide 2020-04 Yes [id number] 290ug Take 1 [facility] (LINZESS) 2-28 capsule by ity of 290 mcg Cap 00:00: mouth [place] 00 daily. Medical Branch linaCLOtide 2020-04 Yes [id number] 290ug Take 1 [facility] (LINZESS) 2-28 capsule by ity of 290 mcg Cap 00:00: mouth [place] 00 daily. Medical Branch linaCLOtide 2020-04 Yes [id number] 290ug Take 1 [facility] (LINZESS) 2-28 capsule by ity of 290 mcg Cap 00:00: mouth [place] 00 daily. Medical Branch linaCLOtide 2020-04 Yes [id number] 290ug Take 1 [facility] (LINZESS) 2-28 capsule by ity of 290 mcg Cap 00:00: mouth [place] 00 daily. Medical Branch linaCLOtide 2020-04 Yes [id number] 290ug Take 1 [facility] (LINZESS) 2-28 capsule by ity of 290 mcg Cap 00:00: mouth [place] 00 daily. Medical Branch linaCLOtide 2020-04 Yes [id number] 290ug Take 1 [facility] (LINZESS) 2-28 capsule by ity of 290 mcg Cap 00:00: mouth [place] 00 daily. Medical Branch linaCLOtide 2020-04 Yes [id number] 290ug Take 1 [facility] (LINZESS) 2-28 capsule by ity of 290 mcg Cap 00:00: mouth [place] 00 daily. Medical Branch linaCLOtide 2020-04 Yes [id number] 290ug Take 1 [facility] (LINZESS) 2-28 capsule by ity of 290 mcg Cap 00:00: mouth [place] 00 daily. Medical Branch linaCLOtide 2020-04 Yes [id number] 290ug Take 1 [facility] (LINZESS) 2-28 capsule by ity of 290 mcg Cap 00:00: mouth [place] 00 daily. Medical Branch linaCLOtide 2020-04 Yes [id number] 290ug Take 1 [facility] (LINZESS) 2-28 capsule by ity of 290 mcg Cap 00:00: mouth [place] 00 daily. Medical Branch linaCLOtide 2020-04 Yes [id number] 290ug Take 1 [facility] (LINZESS) 2-28 capsule by ity of 290 mcg Cap 00:00: mouth [place] 00 daily. Medical Branch linaCLOtide 2020-04 Yes [id number] 290ug Take 1 [facility] (LINZESS) 2-28 capsule by ity of 290 mcg Cap 00:00: mouth [place] 00 daily. Medical Branch linaCLOtide 2020-04 Yes [id number] 290ug Take 1 [facility] (LINZESS) 2-28 capsule by ity of 290 mcg Cap 00:00: mouth [place] 00 daily. Medical Branch linaCLOtide 2020-04 Yes [id number] 290ug Take 1 [facility] (LINZESS) 2-28 capsule by ity of 290 mcg Cap 00:00: mouth [place] 00 daily. Medical Branch linaCLOtide 2020-04 Yes [id number] 290ug Take 1 [facility] (LINZESS) 2-28 capsule by ity of 290 mcg Cap 00:00: mouth [place] 00 daily. Medical Branch albuterol 0 Yes [id number] 2 puffs U nivers 90 9-23 with ity of mcg/actuati 00:00: spacer 4 [place] on inhaler 00 times a Medica l day for at Branch least 7 days albuterol 0 Yes [id number] 2 puffs U nivers 90 9-23 with ity of mcg/actuati 00:00: spacer 4 [place] inhaler 00 times a Medica l day for at Branch least 7 days albuterol 0 Yes [id number] 2 puffs U nivers 90 9-23 with ity of mcg/actuati 00:00: spacer 4 [place] inhaler 00 times a Medica l day for at Branch least 7 days albuterol 0 Yes [id number] 2 puffs U nivers 90 9-23 with ity of mcg/actuati 00:00: spacer 4 [place] on inhaler 00 times a Medica l day for at Branch least 7 days albuterol 0 Yes [id number] 2 puffs U nivers 90 9-23 with ity of mcg/actuati 00:00: spacer 4 [place] inhaler 00 times a Medica l day for at Branch least 7 days albuterol 0 Yes [id number] 2 puffs U nivers 90 9-23 with ity of mcg/actuati 00:00: spacer 4 [place] inhaler 00 times a Medica l day for at Branch least 7 days albuterol 0 Yes [id number] 2 puffs U nivers 90 9-23 with ity of mcg/actuati 00:00: spacer 4 [place] inhaler 00 times a Medica l day for at Branch least 7 days albuterol 0 Yes [id number] 2 puffs U nivers 90 9-23 with ity of mcg/actuati 00:00: spacer 4 [place] inhaler 00 times a Medica l day for at Branch least 7 days albuterol 0 Yes [id number] 2 puffs U nivers 90 9-23 with ity of mcg/actuati 00:00: spacer 4 [place] inhaler 00 times a Medica l day for at Branch least 7 days albuterol 2020-0 Yes [id number] puffs U nivers 90 9-23 with ity of mcg/actuati 00:00: spacer 4 [place] inhaler 00 times a Medica l day for at Branch least 7 days albuterol 2020-0 Yes [id number] 2 puffs U nivers 90 9-23 with ity of mcg/actuati 00:00: spacer 4 [place] on inhaler 00 times a Medica l day for at Branch least 7 days albuterol 2020-0 Yes [id number] 2 puffs U nivers 90 9-23 with ity of mcg/actuati 00:00: spacer 4 [place] on inhaler 00 times a Medica l day for at Branch least 7 days albuterol 2020-0 Yes [id number] 2 puffs U nivers 90 9-23 with ity of mcg/actuati 00:00: spacer 4 [place] on inhaler 00 times a Medica l day for at Branch least 7 days albuterol 2020-0 Yes [id number] 2 puffs U nivers 90 9-23 with ity of mcg/actuati 00:00: spacer 4 [place] inhaler 00 times a Medica l day for at Branch least 7 days albuterol 2020-0 Yes [id number] 2 puffs U nivers 90 9-23 with ity of mcg/actuati 00:00: spacer 4 [place] inhaler 00 times a Medica l day for at Branch least 7 days albuterol 2020-0 Yes [id number] 2 puffs U nivers 90 9-23 with ity of mcg/actuati 00:00: spacer 4 [place] inhaler 00 times a Medica l day for at Branch least 7 days albuterol 2020-0 Yes [id number] 2 puffs U nivers 90 9-23 with ity of mcg/actuati 00:00: spacer 4 [place] inhaler 00 times a Medica l day for at Branch least 7 days albuterol 2020-0 Yes [id number] 2 puffs U nivers 90 9-23 with ity of mcg/actuati 00:00: spacer 4 [place] on inhaler 00 times a Medica l day for at Branch least 7 days albuterol 2020-0 Yes [id number] 2 puffs U nivers 90 9-23 with ity of mcg/actuati 00:00: spacer 4 [place] inhaler 00 times a Medica l day for at Branch least 7 days albuterol 2020-0 Yes [id number] 2 puffs U nivers 90 9-23 with ity of mcg/actuati 00:00: spacer 4 [place] inhaler 00 times a Medica l day for at Branch least 7 days albuterol 2020-0 Yes [id number] 2 puffs U nivers 90 9-23 with ity of mcg/actuati 00:00: spacer 4 [place] inhaler 00 times a Medica l day for at Branch least 7 days albuterol 2020-0 Yes [id number] 2 puffs U nivers 90 9-23 with ity of mcg/actuati 00:00: spacer 4 [place] on inhaler 00 times a Medica l day for at Branch least 7 days albuterol 2020-0 Yes [id number] 2 puffs U nivers 90 9-23 with ity of mcg/actuati 00:00: spacer 4 [place] inhaler 00 times a Medica l day for at Branch least 7 days albuterol 2020-0 Yes [id number] 2 puffs [facility] 90 9-23 with [facility]y of mcg/actuati 00:00: [place] 4 [place] inhaler 00 times a Medica l day for at Branch least 7 days albuterol 2020-0 Yes [id number] 2 puffs [facility] 90 9-23 with ity of mcg/actuati 00:00: [place] 00 times a Medica l day for at Branch least 7 days albuterol 2020-0 Yes [id number] 2 puffs [facility] 90 9-23 with [facility]y of mcg/actuati 00:00: [place] 00 times a Medica l day for at Branch least 7 days albuterol 2020-0 Yes [id number] 2 puffs [facility] 90 9-23 with ity of mcg/actuati 00:00: [place] 00 times a Medica l day for at Branch least 7 days albuterol 2020-0 Yes [id number] 2 puffs [facility] 90 9-23 with ity of mcg/actuati 00:00: spacer [place] 00 times a Medica l day for at Branch least 7 days albuterol 2020-0 Yes [id number] 2 puffs [facility] 90 9-23 with ity of mcg/actuati 00:00: spacer 4 [place] 00 times a Medica l day for at Branch least 7 days albuterol 2020-0 Yes [id number] 2 puffs [facility] 90 9-23 with ity of mcg/actuati 00:00: spacer 4 [place] 00 times a Medica l day for at Branch least 7 days albuterol 2020-0 Yes [id number] 2 puffs [facility] 90 9-23 with ity of mcg/actuati 00:00: spacer 4 [place] 00 times a Medica l day for at Branch least 7 days albuterol 2020-0 Yes [id number] 2 puffs [facility] 90 9-23 with ity of mcg/actuati 00:00: spacer 4 [place]er 00 times a Medica l day for at Branch least 7 days albuterol 2020-0 Yes [id number] 2 puffs [facility] 90 9-23 with ity of mcg/actuati 00:00: spacer 4 [place]er 00 times a Medica l day for at Branch least 7 days albuterol 2020-0 Yes [id number] 2 puffs [facility] 90 9-23 with ity of mcg/actuati 00:00: spacer 4 [place]er 00 times a Medica l day for at Branch least 7 days albuterol 2020-0 Yes [id number] 2 puffs [facility] 90 9-23 with ity of mcg/actuati 00:00: spacer 4 [place] inhaler 00 times a Medica l day for at Branch least 7 days albuterol 2020-0 Yes [id number] 2 puffs [facility] 90 9-23 with ity of mcg/actuati 00:00: spacer 4 [place] inhaler 00 times a Medica l day for at Branch least 7 days albuterol Yes [id number] 2 puffs [facility] 90 9-23 with ity of mcg/actuati 00:00: spacer 4 [place] inhaler 00 times a Medica l day for at Branch least 7 days albuterol Yes [id number] 2 puffs [facility] 90 9-23 with ity of mcg/actuati 00:00: spacer 4 [place]er 00 times a Medica l day for at Branch least 7 days albuterol Yes [id number] 2 puffs [facility] 90 9-23 with ity of mcg/actuati 00:00: spacer 4 [place] inhaler 00 times a Medica l day for at Branch least 7 days albuterol Yes [id number] 2 puffs [facility] 90 9-23 with ity of mcg/actuati 00:00: spacer 4 [place]er 00 times a Medica l day for at Branch least 7 days albuterol 2021- No [id number] 2 puffs [facility] 90 9-23 12-16 with ity of mcg/actuati 00:00: 00:00 spacer 4 [place] inhaler 00 :00 times a Medica l day for at Branch least 7 days albuterol 2021- No [id number] 2 puffs [facility] 90 9-23 12-16 with ity of mcg/actuati 00:00: 00:00 spacer 4 [place] inhaler 00 :00 times a Medica l day for at Branch least 7 days albuterol 202- No [id number] 2 puffs [facility] 90 9-23 12-16 with ity of mcg/actuati 00:00: 00:00 spacer 4 [place] inhaler 00 :00 times a Medica l day for at Branch least 7 days magnesium Yes [id number] TAKE 2 [facility] oxide 400 2-11 TABLETS BY ity of mg (241.3 00:00: MOUTH 4 [place] mg 00 TIMES Medical magnesium) DAILY Branch tablet Alcohol Yes [id number] Use as [facility] ers Swabs (BD 2-11 directed [facility] of SINGLE USE 00:00: [place] SWABS 00 the skin Medical REGULAR) prior to Branch PadM Trulicity injection or glucose check; ICD-10 E11.65 magnesium 2020-0 Yes [id number] TAKE 2 [facility] oxide 400 2-11 TABLETS BY ity of mg (241.3 00:00: MOUTH 4 [place] mg 00 TIMES Medical magnesium) DAILY Branch tablet Alcohol Yes [id number] Use as [facility] ers Swabs (BD 2-11 directed [facility] of SINGLE USE 00:00: [place] SWABS 00 the skin Medical REGULAR) prior to Branch PadM Trulicity injection or glucose check; ICD-10 E11.65 magnesium 2020-0 Yes [id number] TAKE 2 [facility] oxide 400 2-11 TABLETS BY ity of mg (241.3 00:00: MOUTH 4 [place] mg 00 TIMES Medical magnesium) DAILY Branch tablet Alcohol Yes [id number] Use as [facility] ers Swabs (BD 2-11 directed [facility] of SINGLE USE 00:00: [place] SWABS 00 the skin Medical REGULAR) prior to Branch PadM Trulicity injection or glucose check; ICD-10 E11.65 magnesium 2020-0 Yes [id number] TAKE 2 [facility] oxide 400 2-11 TABLETS BY ity of mg (241.3 00:00: MOUTH 4 [place] mg 00 TIMES Medical magnesium) DAILY Branch tablet Alcohol Yes [id number] Use as [facility] ers Swabs (BD 2-11 directed [facility]y of SINGLE USE 00:00: [place] SWABS 00 the skin Medical REGULAR) prior to Branch PadM Trulicity injection or glucose check; ICD-10 E11.65 magnesium 2020-0 Yes [id number] TAKE 2 [facility] oxide 400 2-11 TABLETS BY ity of mg (241.3 00:00: MOUTH 4 [place] mg 00 TIMES Medical magnesium) DAILY Branch tablet Alcohol Yes [id number] Use as [facility] ers Swabs (BD 2-11 directed ity of SINGLE USE 00:00: [place] SWABS 00 the skin Medical REGULAR) prior to Branch PadM Trulicity injection or glucose check; ICD-10 E11.65 magnesium 2020-0 Yes [id number] TAKE 2 [facility] oxide 400 2-11 TABLETS BY ity of mg (241.3 00:00: MOUTH 4 [place] mg 00 TIMES Medical magnesium) DAILY Branch tablet Alcohol Yes [id number] Use as [facility] ers Swabs (BD 2-11 directed ity of SINGLE USE 00:00: [place] SWABS 00 the skin Medical REGULAR) prior to Branch PadM Trulicity injection or glucose check; ICD-10 E11.65 magnesium Yes [id number] TAKE 2 [facility] oxide 400 2-11 TABLETS BY ity of mg (241.3 00:00: MOUTH 4 [place] mg 00 TIMES Medical magnesium) DAILY Branch tablet Alcohol Yes [id number] Use as [facility] ers Swabs (BD 2-11 directed ity of SINGLE USE 00:00: [place] SWABS 00 the skin Medical REGULAR) prior to Branch PadM Trulicity injection or glucose check; ICD-10 E11.65 magnesium Yes [id number] TAKE 2 [facility] oxide 400 2-11 TABLETS BY ity of mg (241.3 00:00: MOUTH 4 [place] mg 00 TIMES Medical magnesium) DAILY Branch tablet Alcohol Yes [id number] Use as [facility] ers Swabs (BD 2-11 directed ity of SINGLE USE 00:00: [place] SWABS 00 the skin Medical REGULAR) prior to Branch PadM Trulicity injection or glucose check; ICD-10 E11.65 magnesium Yes [id number] TAKE 2 [facility] oxide 400 2-11 TABLETS BY ity of mg (241.3 00:00: MOUTH 4 [place] mg 00 TIMES Medical magnesium) DAILY Branch tablet Alcohol Yes [id number] Use as [facility] ers Swabs (BD 2-11 directed ity of SINGLE USE 00:00: [place] prep [place] SWABS 00 the skin Medical REGULAR) prior to Branch PadM Trulicity injection or glucose check; ICD-10 E11.65 magnesium Yes [id number] TAKE 2 [facility] oxide 400 2-11 TABLETS BY ity of mg (241.3 00:00: MOUTH 4 [place] mg 00 TIMES Medical magnesium) DAILY Branch tablet Alcohol Yes [id number] Use as [facility] ers Swabs (BD 2-11 directed ity of SINGLE USE 00:00: [place] SWABS 00 the skin Medical REGULAR) prior to Branch PadM Trulicity injection or glucose check; ICD-10 E11.65 magnesium 0 Yes [id number] TAKE 2 [facility] oxide 400 2-11 TABLETS BY ity of mg (241.3 00:00: MOUTH 4 [place] mg 00 TIMES Medical magnesium) DAILY Branch tablet Alcohol Yes [id number] Use as [facility] ers Swabs (BD 2-11 directed ity of SINGLE USE 00:00: to [place] SWABS 00 the skin Medical REGULAR) prior to Branch PadM Trulicity injection or glucose check; ICD-10 E11.65 magnesium 2020-0 Yes [id number] TAKE 2 [facility] oxide 400 2-11 TABLETS BY ity of mg (241.3 00:00: MOUTH 4 [place] mg 00 TIMES Medical magnesium) DAILY Branch tablet Alcohol Yes [id number] Use as [facility] ers Swabs (BD 2-11 directed ity of SINGLE USE 00:00: [place] SWABS 00 the skin Medical REGULAR) prior to Branch PadM Trulicity injection or glucose check; ICD-10 E11.65 magnesium Yes [id number] TAKE 2 [facility] oxide 400 2-11 TABLETS BY ity of mg (241.3 00:00: MOUTH 4 [place] mg 00 TIMES Medical magnesium) DAILY Branch tablet Alcohol Yes [id number] Use as [facility] ers Swabs (BD 2-11 directed ity of SINGLE USE 00:00: [place] SWABS 00 the skin Medical REGULAR) prior to Branch PadM Trulicity injection or glucose check; ICD-10 E11.65 magnesium 2020-0 Yes [id number] TAKE 2 [facility] oxide 400 2-11 TABLETS BY ity of mg (241.3 00:00: MOUTH 4 [place] mg 00 TIMES Medical magnesium) DAILY Branch tablet Alcohol Yes [id number] Use as [facility] ers Swabs (BD 2-11 directed ity of SINGLE USE 00:00: to [place] SWABS 00 the skin Medical REGULAR) prior to Branch PadM Trulicity injection or glucose check; ICD-10 E11.65 magnesium 2020-0 Yes [id number] TAKE 2 [facility] oxide 400 2-11 TABLETS BY ity of mg (241.3 00:00: MOUTH 4 [place] mg 00 TIMES Medical magnesium) DAILY Branch tablet Alcohol Yes [id number] Use as [facility] ers Swabs (BD 2-11 directed ity of SINGLE USE 00:00: to [place] SWABS 00 the skin Medical REGULAR) prior to Branch PadM Trulicity injection or glucose check; ICD-10 E11.65 magnesium 2020-0 Yes [id number] TAKE 2 [facility] oxide 400 2-11 TABLETS BY ity of mg (241.3 00:00: MOUTH 4 [place] mg 00 TIMES Medical magnesium) DAILY Branch tablet Alcohol Yes [id number] Use as [facility] ers Swabs (BD 2-11 directed ity of SINGLE USE 00:00: to [place] SWABS 00 the skin Medical REGULAR) prior to Branch PadM Trulicity injection or glucose check; ICD-10 E11.65 magnesium 2020-0 Yes [id number] TAKE 2 [facility] oxide 400 2-11 TABLETS BY ity of mg (241.3 00:00: MOUTH 4 [place] mg 00 TIMES Medical magnesium) DAILY Branch tablet Alcohol Yes [id number] Use as [facility] ers Swabs (BD 2-11 directed ity of SINGLE USE 00:00: to [place] SWABS 00 the skin Medical REGULAR) prior to Branch PadM Trulicity injection or glucose check; ICD-10 E11.65 magnesium 0 Yes [id number] TAKE 2 [facility] oxide 400 2-11 TABLETS BY ity of mg (241.3 00:00: MOUTH 4 [place] mg 00 TIMES Medical magnesium) DAILY Branch tablet Alcohol Yes [id number] Use as [facility] ers Swabs (BD 2-11 directed ity of SINGLE USE 00:00: to prep [place] SWABS 00 the skin Medical REGULAR) prior to Branch PadM Trulicity injection or glucose check; ICD-10 E11.65 magnesium 2020-0 Yes [id number] TAKE 2 [facility] oxide 400 2-11 TABLETS BY ity of mg (241.3 00:00: MOUTH 4 [place] mg 00 TIMES Medical magnesium) DAILY Branch tablet Alcohol Yes [id number] Use as [facility] ers Swabs (BD 2-11 directed ity of SINGLE USE 00:00: to prep [place] SWABS 00 the skin Medical REGULAR) prior to Branch PadM Trulicity injection or glucose check; ICD-10 E11.65 magnesium 2020-0 Yes [id number] TAKE 2 [facility] oxide 400 2-11 TABLETS BY ity of mg (241.3 00:00: MOUTH 4 [place] mg 00 TIMES Medical magnesium) DAILY Branch tablet Alcohol Yes [id number] Use as [facility] ers Swabs (BD 2-11 directed ity of SINGLE USE 00:00: to prep [place] SWABS 00 the skin Medical REGULAR) prior to Branch PadM Trulicity injection or glucose check; ICD-10 E11.65 magnesium 2020-0 Yes [id number] TAKE 2 [facility] oxide 400 2-11 TABLETS BY ity of mg (241.3 00:00: MOUTH 4 [place] mg 00 TIMES Medical magnesium) DAILY Branch tablet Alcohol Yes [id number] Use as [facility] ers Swabs (BD 2-11 directed ity of SINGLE USE 00:00: to prep [place] SWABS 00 the skin Medical REGULAR) prior to Branch PadM Trulicity injection or glucose check; ICD-10 E11.65 magnesium 2020-0 Yes [id number] TAKE 2 [facility] oxide 400 2-11 TABLETS BY ity of mg (241.3 00:00: MOUTH 4 [place] mg 00 TIMES Medical magnesium) DAILY Branch tablet Alcohol Yes [id number] Use as [facility] ers Swabs (BD 2-11 directed ity of SINGLE USE 00:00: to [place] SWABS 00 the skin Medical REGULAR) prior to Branch PadM Trulicity injection or glucose check; ICD-10 E11.65 magnesium 2020-0 Yes [id number] TAKE 2 [facility] oxide 400 2-11 TABLETS BY ity of mg (241.3 00:00: MOUTH 4 [place] mg 00 TIMES Medical magnesium) DAILY Branch tablet Alcohol Yes [id number] Use as [facility] ers Swabs (BD 2-11 directed ity of SINGLE USE 00:00: to [place] SWABS 00 the skin Medical REGULAR) prior to Branch PadM Trulicity injection or glucose check; ICD-10 E11.65 magnesium 2020-0 Yes [id number] TAKE 2 [facility] oxide 400 2-11 TABLETS BY ity of mg (241.3 00:00: MOUTH 4 [place] mg 00 TIMES Medical magnesium) DAILY Branch tablet Alcohol Yes [id number] Use as [facility] Swabs (BD 2-11 directed ity of SINGLE USE 00:00: to prep [place] SWABS 00 the skin Medical REGULAR) prior to Branch PadM Trulicity injection or glucose check; ICD-10 E11.65 magnesium 2020-0 Yes [id number] TAKE 2 [facility] oxide 400 2-11 TABLETS BY ity of mg (241.3 00:00: MOUTH 4 [place] mg 00 TIMES Medical magnesium) DAILY Branch tablet Alcohol Yes [id number] Use as [facility] ers Swabs (BD 2-11 directed ity of SINGLE USE 00:00: to prep [place] SWABS 00 the skin Medical REGULAR) prior to Branch PadM Trulicity injection or glucose check; ICD-10 E11.65 magnesium 2020-0 Yes [id number] TAKE 2 [facility] oxide 400 2-11 TABLETS BY ity of mg (241.3 00:00: MOUTH 4 [place] mg 00 TIMES Medical magnesium) DAILY Branch tablet Alcohol Yes [id number] Use as [facility] ers Swabs (BD 2-11 directed ity of SINGLE USE 00:00: to [place] SWABS 00 the skin Medical REGULAR) prior to Branch PadM Trulicity injection or glucose check; ICD-10 E11.65 magnesium Yes [id number] TAKE 2 [facility] oxide 400 2-11 TABLETS BY ity of mg (241.3 00:00: MOUTH 4 [place] mg 00 TIMES Medical magnesium) DAILY Branch tablet Alcohol Yes [id number] Use as [facility] ers Swabs (BD 2-11 directed ity of SINGLE USE 00:00: to [place] SWABS 00 the skin Medical REGULAR) prior to Branch PadM Trulicity injection or glucose check; ICD-10 E11.65 magnesium 2020-0 Yes [id number] TAKE 2 [facility] oxide 400 2-11 TABLETS BY ity of mg (241.3 00:00: MOUTH 4 [place] mg 00 TIMES Medical magnesium) DAILY Branch tablet Alcohol Yes [id number] Use as [facility] ers Swabs (BD 2-11 directed ity of SINGLE USE 00:00: to prep [place] SWABS 00 the skin Medical REGULAR) prior to Branch PadM Trulicity injection or glucose check; ICD-10 E11.65 magnesium 2020-0 Yes [id number] TAKE 2 [facility] oxide 400 2-11 TABLETS BY ity of mg (241.3 00:00: MOUTH 4 [place] mg 00 TIMES Medical magnesium) DAILY Branch tablet Alcohol Yes [id number] Use as [facility] ers Swabs (BD 2-11 directed ity of SINGLE USE 00:00: to prep [place] SWABS 00 the skin Medical REGULAR) prior to Branch PadM Trulicity injection or glucose check; ICD-10 E11.65 magnesium 2021-0 Yes [id number] TAKE 2 [facility] oxide 400 2-11 TABLETS BY ity of mg (241.3 00:00: MOUTH 4 [place] mg 00 TIMES Medical magnesium) DAILY Branch tablet Alcohol Yes [id number] Use as [facility] ers Swabs (BD 2-11 directed ity of SINGLE USE 00:00: to prep [place] SWABS 00 the skin Medical REGULAR) prior to Branch PadM Trulicity injection or glucose check; ICD-10 E11.65 magnesium Yes [id number] TAKE 2 [facility] oxide 400 2-11 TABLETS BY ity of mg (241.3 00:00: MOUTH 4 [place] mg 00 TIMES Medical magnesium) DAILY Branch tablet Alcohol Yes [id number] Use as [facility] ers Swabs (BD 2-11 directed ity of SINGLE USE 00:00: to prep [place] SWABS 00 the skin Medical REGULAR) prior to Branch PadM Trulicity injection or glucose check; ICD-10 E11.65 magnesium Yes [id number] TAKE 2 [facility] oxide 400 2-11 TABLETS BY ity of mg (241.3 00:00: MOUTH 4 [place] mg 00 TIMES Medical magnesium) DAILY Branch tablet Alcohol Yes [id number] Use as [facility] ers Swabs (BD 2-11 directed ity of SINGLE USE 00:00: to prep [place] SWABS 00 the skin Medical REGULAR) prior to Branch PadM Trulicity injection or glucose check; ICD-10 E11.65 magnesium Yes [id number] TAKE 2 [facility] oxide 400 2-11 TABLETS BY ity of mg (241.3 00:00: MOUTH 4 [place] mg 00 TIMES Medical magnesium) DAILY Branch tablet Alcohol Yes [id number] Use as [facility] Swabs (BD 2-11 directed ity of SINGLE USE 00:00: to prep [place] SWABS 00 the skin Medical REGULAR) prior to Branch PadM Trulicity injection or glucose check; ICD-10 E11.65 magnesium 0 Yes [id number] TAKE 2 [facility] oxide 400 2-11 TABLETS BY ity of mg (241.3 00:00: MOUTH 4 [place] mg 00 TIMES Medical magnesium) DAILY Branch tablet Alcohol Yes [id number] Use as [facility] Swabs (BD 2-11 directed ity of SINGLE USE 00:00: to prep [place] SWABS 00 the skin Medical REGULAR) prior to Branch PadM Trulicity injection or glucose check; ICD-10 E11.65 magnesium 2020-0 Yes [id number] TAKE 2 [facility] oxide 400 2-11 TABLETS BY ity of mg (241.3 00:00: MOUTH 4 [place] mg 00 TIMES Medical magnesium) DAILY Branch tablet Alcohol Yes [id number] Use as [facility] Swabs (BD 2-11 directed ity of SINGLE USE 00:00: to prep [place] SWABS 00 the skin Medical REGULAR) prior to Branch PadM Trulicity injection or glucose check; ICD-10 E11.65 magnesium 2020-0 Yes [id number] TAKE 2 [facility] oxide 400 2-11 TABLETS BY ity of mg (241.3 00:00: MOUTH 4 [place] mg 00 TIMES Medical magnesium) DAILY Branch tablet Alcohol Yes [id number] Use as [facility] ers Swabs (BD 2-11 directed ity of SINGLE USE 00:00: to prep [place] SWABS 00 the skin Medical REGULAR) prior to Branch PadM Trulicity injection or glucose check; ICD-10 E11.65 magnesium 2020-0 Yes [id number] TAKE 2 [facility] oxide 400 2-11 TABLETS BY ity of mg (241.3 00:00: MOUTH 4 [place] mg 00 TIMES Medical magnesium) DAILY Branch tablet Alcohol Yes [id number] Use as [facility] ers Swabs (BD 2-11 directed ity of SINGLE USE 00:00: to [place] SWABS 00 the skin Medical REGULAR) prior to Branch PadM Trulicity injection or glucose check; ICD-10 E11.65 magnesium 2020-0 Yes [id number] TAKE 2 [facility] oxide 400 2-11 TABLETS BY ity of mg (241.3 00:00: MOUTH 4 [place] mg 00 TIMES Medical magnesium) DAILY Branch tablet Alcohol Yes [id number] Use as [facility] ers Swabs (BD 2-11 directed ity of SINGLE USE 00:00: to prep [place] SWABS 00 the skin Medical REGULAR) prior to Branch PadM Trulicity injection or glucose check; ICD-10 E11.65 magnesium 2020-0 Yes [id number] TAKE 2 [facility] oxide 400 2-11 TABLETS BY ity of mg (241.3 00:00: MOUTH 4 [place] mg 00 TIMES Medical magnesium) DAILY Branch tablet Alcohol Yes [id number] Use as [facility] ers Swabs (BD 2-11 directed ity of SINGLE USE 00:00: to prep [place] SWABS 00 the skin Medical REGULAR) prior to Branch PadM Trulicity injection or glucose check; ICD-10 E11.65 magnesium Yes [id number] TAKE 2 [facility] oxide 400 2-11 TABLETS BY ity of mg (241.3 00:00: MOUTH 4 [place] mg 00 TIMES Medical magnesium) DAILY Branch tablet Alcohol Yes [id number] Use as [facility] ers Swabs (BD 2-11 directed ity of SINGLE USE 00:00: to prep [place] SWABS 00 the skin Medical REGULAR) prior to Branch PadM Trulicity injection or glucose check; ICD-10 E11.65 magnesium Yes [id number] TAKE 2 [facility] oxide 400 2-11 TABLETS BY ity of mg (241.3 00:00: MOUTH 4 [place] mg 00 TIMES Medical magnesium) DAILY Branch tablet Alcohol Yes [id number] Use as [facility] ers Swabs (BD 2-11 directed ity of SINGLE USE 00:00: to prep [place] SWABS 00 the skin Medical REGULAR) prior to Branch PadM Trulicity injection or glucose check; ICD-10 E11.65 magnesium Yes [id number] TAKE 2 [facility] oxide 400 2-11 TABLETS BY ity of mg (241.3 00:00: MOUTH 4 [place] mg 00 TIMES Medical magnesium) DAILY Branch tablet Alcohol Yes [id number] Use as [facility] ers Swabs (BD 2-11 directed ity of SINGLE USE 00:00: to prep [place] SWABS 00 the skin Medical REGULAR) prior to Branch PadM Trulicity injection or glucose check; ICD-10 E11.65 magnesium Yes [id number] TAKE 2 [facility] oxide 400 2-11 TABLETS BY ity of mg (241.3 00:00: MOUTH 4 [place] mg 00 TIMES Medical magnesium) DAILY Branch tablet Alcohol Yes [id number] Use as [facility] ers Swabs (BD 2-11 directed ity of SINGLE USE 00:00: to prep [place] SWABS 00 the skin Medical REGULAR) prior to Branch PadM Trulicity injection or glucose check; ICD-10 E11.65 magnesium 2020-0 Yes [id number] TAKE 2 [facility] oxide 400 2-11 TABLETS BY ity of mg (241.3 00:00: MOUTH 4 [place] mg 00 TIMES Medical magnesium) DAILY Branch tablet Alcohol Yes [id number] Use as [facility] ers Swabs (BD 2-11 directed ity of SINGLE USE 00:00: to prep [place] SWABS 00 the skin Medical REGULAR) prior to Branch PadM Trulicity injection or glucose check; ICD-10 E11.65 magnesium Yes [id number] TAKE 2 [facility] oxide 400 2-11 TABLETS BY ity of mg (241.3 00:00: MOUTH 4 [place] mg 00 TIMES Medical magnesium) DAILY Branch tablet Alcohol Yes [id number] Use as [facility] ers Swabs (BD 2-11 directed ity of SINGLE USE 00:00: to prep [place] SWABS 00 the skin Medical REGULAR) prior to Branch PadM Trulicity injection or glucose check; ICD-10 E11.65 magnesium Yes [id number] TAKE 2 [facility] oxide 400 2-11 TABLETS BY ity of mg (241.3 00:00: MOUTH 4 [place] mg 00 TIMES Medical magnesium) DAILY Branch tablet magnesium Yes [id number] TAKE 2 [facility] oxide 400 2-11 TABLETS BY ity of mg (241.3 00:00: MOUTH 4 [place] mg 00 TIMES Medical magnesium) DAILY Branch tablet magnesium Yes [id number] TAKE 2 [facility] oxide 400 2-11 TABLETS BY ity of mg (241.3 00:00: MOUTH 4 [place] mg 00 TIMES Medical magnesium) DAILY Branch tablet magnesium Yes [id number] TAKE 2 [facility] oxide 400 2-11 TABLETS BY ity of mg (241.3 00:00: MOUTH 4 [place] mg 00 TIMES Medical magnesium) DAILY Branch tablet magnesium Yes [id number] TAKE 2 [facility] oxide 400 2-11 TABLETS BY ity of mg (241.3 00:00: MOUTH 4 [place] mg 00 TIMES Medical magnesium) DAILY Branch tablet magnesium Yes [id number] TAKE 2 [facility] oxide 400 2-11 TABLETS BY ity of mg (241.3 00:00: MOUTH 4 [place] mg 00 TIMES Medical magnesium) DAILY Branch tablet magnesium Yes [id number] TAKE 2 [facility] oxide 400 2-11 TABLETS BY ity of mg (241.3 00:00: MOUTH 4 [place] mg 00 TIMES Medical magnesium) DAILY Branch tablet magnesium Yes [id number] TAKE 2 [facility] oxide 400 2-11 TABLETS BY ity of mg (241.3 00:00: MOUTH 4 [place] mg 00 TIMES Medical magnesium) DAILY Branch tablet magnesium Yes [id number] TAKE 2 [facility] oxide 400 2-11 TABLETS BY ity of mg (241.3 00:00: MOUTH 4 [place] mg 00 TIMES Medical magnesium) DAILY Branch tablet magnesium Yes [id number] TAKE 2 [facility] oxide 400 2-11 TABLETS BY ity of mg (241.3 00:00: MOUTH 4 [place] mg 00 TIMES Medical magnesium) DAILY Branch tablet magnesium Yes [id number] TAKE 2 [facility] oxide 400 2-11 TABLETS BY ity of mg (241.3 00:00: MOUTH 4 [place] mg 00 TIMES Medical magnesium) DAILY Branch tablet magnesium Yes [id number] TAKE 2 [facility] oxide 400 2-11 TABLETS BY ity of mg (241.3 00:00: MOUTH 4 [place] mg 00 TIMES Medical magnesium) DAILY Branch tablet magnesium 2022- No [id number] TAKE 2 [facility] oxide 400 2-11 02-06 TABLETS BY ity of mg (241.3 00:00: 00:00 MOUTH 4 [place] mg 00 :00 TIMES Medical magnesium) DAILY Branch tablet Alcohol 2021- No [id number] Use as Uni vers Swabs (BD 05-25 directed ity o f SINGLE USE 00:00: 00:00 to prep [place] SWABS 00 :00 the skin Medical REGULAR) prior to Branch PadM Trulicity injection or glucose check; ICD-10 E11.65 Alcohol 2021- No [id number] Use as Uni vers Swabs (BD 05-25 directed ity o f SINGLE USE 00:00: 00:00 to prep [place] SWABS 00 :00 the skin Medical REGULAR) prior to Branch PadM Trulicity injection or glucose check; ICD-10 E11.65 meloxicam Yes [id number] 15mg Q24H Take 1 [facility] (Mobic) 15 9-24 tablet (15 st mg tablet 00:00: mg total) [facility] 00 by mouth l daily as needed for mild pain. gabapentin 0 Yes [id number] Take 1 tab [facility] (NEURONTIN) 9-[address] 300 mg 00:00: [facility] capsule 00 l meloxicam 2020-0 Yes [id number] 15mg Q24H Take 1 [facility] (Mobic) 15 9-24 tablet (15 st mg tablet 00:00: mg total) [facility] 00 by mouth l daily as needed for mild pain. gabapentin 2020-0 Yes [id number] Take 1 tab [facility] (NEURONTIN) 9-[address] 300 mg 00:00: [facility] capsule 00 l meloxicam 2020-0 Yes [id number] 15mg Q24H Take 1 [facility] (Mobic) 15 9-24 tablet (15 st mg tablet 00:00: mg total) [facility] 00 by mouth l daily as needed for mild pain. gabapentin 2020-0 Yes [id number] Take 1 tab [facility] (NEURONTIN) 9-[address] 300 mg 00:00: [facility]osp[facility] capsule 00 l repaglinide 2020-0 Yes .5mg Take 0.5 Un [facility] (PRANDIN) 9-08 mg by ity of 0.5 mg 01:37: mouth 2 [place] tablet 03 (two) MD times a [place] day before n meals[facility] repaglinide 2019-0 Yes .5mg Take 0.5 Un [facility] (PRANDIN) 9-08 mg by ity of 0.5 mg 01:37: mouth 2 [place] tablet 03 (two) MD times a [place] day before n meals. [facility] magnesium 2020-0 Yes magnesium Uni vers 200 mg tab 9-02 ity of 14:59: [place] 43 MD [facility] atropine 1% 2019-0 Yes atropine 1 [facility] ophthalmic 9-02 % eye ity of solution 14:59: drops 43 MD [facility] Center atorvastati 2019-0 Yes 10mg Take 10 mg Univers n (LIPITOR) 9-02 by mouth. ity of 10 mg 14:59: [place] tablet 43 MD [facility] Center dapaglifloz 2019-0 Yes Farxiga 10 [facility] in 9-02 mg tablet ity of (Farxiga) 14:59: 1 [place] 10 [place] tab 43 daily MD Zamzam ackerman [facility] [place] magnesium 2020-0 Yes magnesium Uni vers 200 mg tab 902 ity of 14:59: [place] 43 MD Zamzam ackerman [facility] [place] atropine 1% 2019-0 Yes atropine 1 Univers ophthalmic 9-02 % eye ity of solution 14:59: drops [place] 43 MD Zamzam ackerman [facility] [place] atorvastati 2020-0 Yes 10mg Take 10 mg Univers n (LIPITOR) 902 by mouth. ity of 10 mg 14:59: [place] [facility] dapaglifloz 2019-0 Yes Farxiga 10 Univers in 9-02 mg tablet ity of (Farxiga) 14:59: 1 [place] 10 [place] tab 43 daily MD Wyman [facility] ferrous 2020-0 Yes Other iron 325mg Take 1 U nivers sulfate 325 12-14 deficiency tablet ity of (65 FE) MG 00:00: anemia (325 mg) [place] tablet 00 by mouth at [facility]. 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 [facility] pantoprazol 2019-0 Yes Take by Met hodi e sodium 8-[address] (PANTOPRAZO 15:13: Hospit a LE ORAL) 22 l folic 2020-0 Yes [id number] 1{tbl} QD Take 1 Met hodi acid-vit 8-[address] B6-vit B12 00:00: mouth Hospit a (Folbee) 00 daily. l 2.5-25-1 mg tablet folic 2020-0 Yes [id number] 1{tbl} QD Take 1 Met hodi acid-vit 8-[address] B6-vit B12 00:00: mouth Hospit a ([place]) 00 daily. l 2.5-25-1 mg tablet folic 2020-0 Yes [id number] 1{tbl} QD Take 1 Met hodi acid-vit 8-[address] B6-vit B12 00:00: mouth Hospit a ([place]) 00 daily. l 2.5-25-1 mg tablet FOLBEE 2020-0 Yes TAKE 1 Univers 2.5-25-1 mg 6-20 TABLET BY ity of tab 00:00: MOUTH ONCE 00 DAILY [facility] FOLBEE 2020-0 Yes TAKE 1 Univers 2.5-25-1 mg 6-20 TABLET BY ity of tab 00:00: MOUTH ONCE [place] 00 DAILY [facility] metFORMIN 2020-0 Yes TAKE 1 Univer s (GLUCOPHAGE 6-02 TABLET BY ity of ) 1000 mg 00:00: MOUTH [place] tablet 00 TWICE MD DAILY WITH [facility] metFORMIN 2020-0 Yes TAKE 1 Univer s (GLUCOPHAGE 6-02 TABLET BY ity of ) 1000 mg 00:00: MOUTH [place] tablet 00 TWICE MD DAILY WITH [facility] metoprolol 2020-0 Yes TAKE 1 Unive rs succinate 5-26 TABLET BY ity o f (TOPROL XL) 00:00: MOUTH ONCE [place] 25 mg 24 hr 00 DAILY MD tablet [facility] metoprolol 2020-0 Yes TAKE 1 Unive rs succinate 5-26 TABLET BY ity o f (TOPROL XL) 00:00: MOUTH ONCE [place] 25 mg 24 hr 00 DAILY MD tablet [facility] VITAMIN D2 2020-0 Yes TAKE ONE Uni vers 1,250 mcg 5-17 CAPSULE BY ity of (50,000 00:00: MOUTH [place] unit) 00 EVERY 2 MD capsule WEEKS WITH [facility] VITAMIN D2 2020-0 Yes TAKE ONE Uni vers 1,250 mcg 5-17 CAPSULE BY ity of (50,000 00:00: MOUTH [place] unit) 00 EVERY 2 MD capsule WEEKS WITH [facility] cyclobenzap 2020-0 Yes Univer s rine 5-07 ity of (FLEXERIL) 00:00: [place] 5 mg tablet 00 [facility] cyclobenzap 2020-0 Yes Univer s rine 5-07 ity of (FLEXERIL) 00:00: [place] 5 mg tablet 00 [facility] tiZANidine 2020-0 Yes TAKE 1 2 Uni vers (ZANAFLEX) 3-27 TO 1 (ONE ity of 2 mg tablet 00:00: HALF TO [place] 00 ONE) MD TABLET BY [facility] EVERY 8 Cancer HOURS Center NEEDED FOR MUSCLE SPASM OR PAIN tiZANidine 2020-0 Yes TAKE 1 2 Uni vers (ZANAFLEX) 3-27 TO 1 (ONE ity of 2 mg tablet 00:00: HALF TO [place] 00 ONE) TABLET BY [facility] MOUTH n EVERY 8 Cancer HOURS Center NEEDED FOR MUSCLE SPASM OR PAIN benzonatate 2020-0 Yes 1{capsu Q.[id number] Take 1 [facility] (TESSALON) 2-28 le} [id number] capsule by st 200 MG 00:00: 3D mouth 3 Hospita capsule 00 (three) l times a day as needed. benzonatate 2020-0 Yes TAKE 1 Univ ers (TESSALON) 2-28 CAPSULE BY ity of 200 mg 00:00: MOUTH [place] capsule 00 THREE MD TIMES [facility] DAILY n NEEDED FOR Cancer COUGH Center fluticasone 2020-0 Yes 2{spray Inhale 2 Univers propionate 2-28 } sprays ity of (FLONASE) 00:00: into each [place] 50 00 nostril. mcg/spray [facility] nasal spray n Cancer Center coenzyme 2020-0 Yes 100mg Take 100 Univ ers Q10 100 mg 2-28 mg by ity of capsule 00:00: mouth. MD Zamzam [facility] benzonatate 2020-0 Yes TAKE 1 Univ ers (TESSALON) 2-28 CAPSULE BY ity of 200 mg 00:00: MOUTH [place] capsule 00 THREE MD TIMES [facility] DAILY n NEEDED FOR Cancer COUGH Center fluticasone 2020-0 Yes 2{spray Inhale 2 Univers propionate 2-28 } sprays ity of (FLONASE) 00:00: into each [place] as 50 00 nostril. mcg/spray [facility] nasal spray n Cancer Center coenzyme 2020-0 Yes 100mg Take 100 Univ ers Q10 100 mg 2-28 mg by ity of capsule 00:00: mouth. MD Zamzam [facility]ckerman [facility] benzonatate 2020-0 Yes 1{capsu Q.[id number] Take 1 [facility] (TESSALON) 2-28 le} [id number] capsule by st 200 MG 00:00: 3D mouth 3 Hospita capsule 00 (three) l times a day as needed. dicyclomine 2020-0 Yes 20mg Take 20 mg Univers (BENTYL) 20 2-06 by mouth. ity of mg tablet 00:00: MD Zamzam ackerman [facility] dicyclomine 2020-0 Yes 20mg Take 20 mg Univers (BENTYL) 20 2-06 by mouth. ity of mg tablet 00:00: [place] 00 MD [facility]o n [facility] acetaminoph Yes TAKE 1 [...] NAUSEA AND Cancer VOMITING Center acetaminoph Yes TAKE 1 Univ ers [...] mg-30 mg [facility] tablet n Cancer Center acetaminoph Yes 1{tbl} Take 1 Un wendy en-codeine 2-04 tablet by ity of (TYLENOL 00:00: mouth as [place] #3) 300 00 needed. MD mg-30 mg [facility] tablet n Cancer Center albuterol 2018-04 Yes USE 1 VIAL Un wendy (PROVENTIL, 0-24 IN ity of VENTOLIN) 00:00: NEBULIZER [place] as 2.5 mg/3 mL 00 EVERY 4 MD (0.083%) HOURS [facility] nebulizer NEEDED FOR n solution WHEEZING Cancer FOR Center SHORTNESS OF BREATH albuterol 2018-04 Yes USE 1 VIAL Un wendy (PROVENTIL, 0-24 IN ity of VENTOLIN) 00:00: NEBULIZER [place] 2.5 mg/3 mL 00 EVERY 4 MD (0.083%) HOURS [facility] nebulizer NEEDED FOR n solution WHEEZING Cancer FOR Center SHORTNESS OF BREATH albuterol 2018-04 Yes [id number] 2.5mg Inhale 3 Univers 2.5 mg /3 0-24 mL every 4 ity of mL (0.083 00:00: (four) [place] %) 00 hours as Medical nebulizer needed for Bran ch solution Wheezing or Shortness of Breath. Via nebulizer albuterol 2018-04 Yes [id number] 2.5mg Inhale 3 Univers 2.5 mg /3 0-24 mL every 4 ity of mL (0.083 00:00: (four) [place] %) 00 hours as Medical nebulizer needed for Bran ch solution Wheezing or Shortness of Breath. Via nebulizer albuterol 2018-04 Yes [id number] 2.5mg Inhale 3 Univers 2.5 mg /3 0-24 mL every 4 ity of mL (0.083 00:00: (four) [place] %) 00 hours as Medical nebulizer needed for Bran ch solution Wheezing or Shortness of Breath. Via nebulizer albuterol 2018-04 Yes [id number] 2.5mg Inhale 3 Univers 2.5 mg /3 0-24 mL every 4 ity of mL (0.083 00:00: (four) [place] %) 00 hours as Medical nebulizer needed for Bran ch solution Wheezing or Shortness of Breath. Via nebulizer albuterol 2018-04 Yes [id number] 2.5mg Inhale 3 Univers 2.5 mg /3 0-24 mL every 4 ity of mL (0.083 00:00: (four) [place] %) 00 hours as Medical nebulizer needed for Bran ch solution Wheezing or Shortness of Breath. Via nebulizer albuterol 2018-04 Yes [id number] 2.5mg Inhale 3 Univers 2.5 mg /3 0-24 mL every 4 ity of mL (0.083 00:00: (four) [place] %) 00 hours as Medical nebulizer needed for Bran ch solution Wheezing or Shortness of Breath. Via nebulizer albuterol 2018-04 Yes [id number] 2.5mg Inhale 3 Univers 2.5 mg /3 0-24 mL every 4 ity of mL (0.083 00:00: (four) [place] %) 00 hours as Medical nebulizer needed for Bran ch solution Wheezing or Shortness of Breath. Via nebulizer albuterol 2018-04 Yes [id number] 2.5mg Inhale 3 Univers 2.5 mg /3 0-24 mL every 4 ity of mL (0.083 00:00: (four) [place] %) 00 hours as Medical nebulizer needed for Bran ch solution Wheezing or Shortness of Breath. Via nebulizer albuterol 2018-04 Yes [id number] 2.5mg Inhale 3 Univers 2.5 mg /3 0-24 mL every 4 ity of mL (0.083 00:00: (four) [place] %) 00 hours as Medical nebulizer needed for Bran ch solution Wheezing or Shortness of Breath. Via nebulizer albuterol 2018-04 Yes [id number] 2.5mg Inhale 3 Univers 2.5 mg /3 0-24 mL every 4 ity of mL (0.083 00:00: (four) [place] %) 00 hours as Medical nebulizer needed for Bran ch solution Wheezing or Shortness of Breath. Via nebulizer albuterol 2018-04 Yes [id number] 2.5mg Inhale 3 Univers 2.5 mg /3 0-24 mL every 4 ity of mL (0.083 00:00: (four) [place] %) 00 hours as Medical nebulizer needed for Bran ch solution Wheezing or Shortness of Breath. Via nebulizer albuterol 2018-04 Yes [id number] 2.5mg Inhale 3 Univers 2.5 mg /3 0-24 mL every 4 ity of mL (0.083 00:00: (four) [place] %) 00 hours as Medical nebulizer needed for Bran ch solution Wheezing or Shortness of Breath. Via nebulizer albuterol 2018-04 Yes [id number] 2.5mg Inhale 3 Univers 2.5 mg /3 0-24 mL every 4 ity of mL (0.083 00:00: (four) [place] %) 00 hours as Medical nebulizer needed for Bran ch solution Wheezing or Shortness of Breath. Via nebulizer albuterol 2018-04 Yes [id number] 2.5mg Inhale 3 Univers 2.5 mg /3 0-24 mL every 4 ity of mL (0.083 00:00: (four) [place] %) 00 hours as Medical nebulizer needed for Bran ch solution Wheezing or Shortness of Breath. Via nebulizer albuterol 2018-04 Yes [id number] 2.5mg Inhale 3 Univers 2.5 mg /3 0-24 mL every 4 ity of mL (0.083 00:00: (four) [place] %) 00 hours as Medical nebulizer needed for Bran ch solution Wheezing or Shortness of Breath. Via nebulizer albuterol 2018-04 Yes [id number] 2.5mg Inhale 3 Univers 2.5 mg /3 0-24 mL every 4 ity of mL (0.083 00:00: (four) [place] %) 00 hours as Medical nebulizer needed for Bran ch solution Wheezing or Shortness of Breath. Via nebulizer albuterol 2018-04 Yes [id number] 2.5mg Inhale 3 Univers 2.5 mg /3 0-24 mL every 4 ity of mL (0.083 00:00: (four) [place] %) 00 hours as Medical nebulizer needed for Bran ch solution Wheezing or Shortness of Breath. Via nebulizer albuterol 2018-04 Yes [id number] 2.5mg Inhale 3 Univers 2.5 mg /3 0-24 mL every 4 ity of mL (0.083 00:00: (four) [place] %) 00 hours as Medical nebulizer needed for Bran ch solution Wheezing or Shortness of Breath. Via nebulizer albuterol 2018-04 Yes [id number] 2.5mg Inhale 3 Univers 2.5 mg /3 0-24 mL every 4 ity of mL (0.083 00:00: (four) [place] %) 00 hours as Medical nebulizer needed for Bran ch solution Wheezing or Shortness of Breath. Via nebulizer albuterol 2018-04 Yes [id number] 2.5mg Inhale 3 Univers 2.5 mg /3 0-24 mL every 4 ity of mL (0.083 00:00: (four) [place] %) 00 hours as Medical nebulizer needed for Bran ch solution Wheezing or Shortness of Breath. Via nebulizer albuterol 2018-04 Yes [id number] 2.5mg Inhale 3 Univers 2.5 mg /3 0-24 mL every 4 ity of mL (0.083 00:00: (four) [place] %) 00 hours as Medical nebulizer needed for Bran ch solution Wheezing or Shortness of Breath. Via nebulizer albuterol 2018-04 Yes [id number] 2.5mg Inhale 3 Univers 2.5 mg /3 0-24 mL every 4 ity of mL (0.083 00:00: (four) [place] %) 00 hours as Medical nebulizer needed for Bran ch solution Wheezing or Shortness of Breath. Via nebulizer albuterol 2018-04 Yes [id number] 2.5mg Inhale 3 Univers 2.5 mg /3 0-24 mL every 4 ity of mL (0.083 00:00: (four) [place] %) 00 hours as Medical nebulizer needed for Bran ch solution Wheezing or Shortness of Breath. Via nebulizer albuterol 2018-04 Yes [id number] 2.5mg Inhale 3 Univers 2.5 mg /3 0-24 mL every 4 ity of mL (0.083 00:00: (four) [place] %) 00 hours as Medical nebulizer needed for Bran ch solution Wheezing or Shortness of Breath. Via nebulizer albuterol 2018-04 Yes [id number] 2.5mg Inhale 3 Univers 2.5 mg /3 0-24 mL every 4 ity of mL (0.083 00:00: (four) [place] %) 00 hours as Medical nebulizer needed for Bran ch solution Wheezing or Shortness of Breath. Via nebulizer albuterol 2018-04 Yes [id number] 2.5mg Inhale 3 Univers 2.5 mg /3 0-24 mL every 4 ity of mL (0.083 00:00: (four) [place] %) 00 hours as Medical nebulizer needed for Bran ch solution Wheezing or Shortness of Breath. Via nebulizer albuterol 2018-04 Yes [id number] 2.5mg Inhale 3 Univers 2.5 mg /3 0-24 mL every 4 ity of mL (0.083 00:00: (four) [place] %) 00 hours as Medical nebulizer needed for Bran ch solution Wheezing or Shortness of Breath. Via nebulizer albuterol 2018-04 Yes [id number] 2.5mg Inhale 3 Univers 2.5 mg /3 0-24 mL every 4 ity of mL (0.083 00:00: (four) [place] %) 00 hours as Medical nebulizer needed for Bran ch solution Wheezing or Shortness of Breath. Via nebulizer albuterol 2019-1 Yes [id number] 2.5mg Inhale 3 Univers 2.5 mg /3 0-24 mL every 4 ity of mL (0.083 00:00: (four) [place] %) 00 hours as Medical nebulizer needed for Bran ch solution Wheezing or Shortness of Breath. Via nebulizer albuterol 2018-04 Yes [id number] 2.5mg Inhale 3 Univers 2.5 mg /3 0-24 mL every 4 ity of mL (0.083 00:00: (four) [place] %) 00 hours as Medical nebulizer needed for Bran ch solution Wheezing or Shortness of Breath. Via nebulizer albuterol 2018-04 Yes [id number] 2.5mg Inhale 3 Univers 2.5 mg /3 0-24 mL every 4 ity of mL (0.083 00:00: (four) [place] %) 00 hours as Medical nebulizer needed for Bran ch solution Wheezing or Shortness of Breath. Via nebulizer albuterol 2018-04 Yes [id number] 2.5mg Inhale 3 Univers 2.5 mg /3 0-24 mL every 4 ity of mL (0.083 00:00: (four) [place] %) 00 hours as Medical nebulizer needed for Bran ch solution Wheezing or Shortness of Breath. Via nebulizer albuterol 2018-04 Yes [id number] 2.5mg Inhale 3 Univers 2.5 mg /3 0-24 mL every 4 ity of mL (0.083 00:00: (four) [place] %) 00 hours as Medical nebulizer needed for Bran ch solution Wheezing or Shortness of Breath. Via nebulizer albuterol 2018-04 Yes [id number] 2.5mg Inhale 3 Univers 2.5 mg /3 0-24 mL every 4 ity of mL (0.083 00:00: (four) [place] %) 00 hours as Medical nebulizer needed for Bran ch solution Wheezing or Shortness of Breath. Via nebulizer albuterol 2018-04 Yes [id number] 2.5mg Inhale 3 Univers 2.5 mg /3 0-24 mL every 4 ity of mL (0.083 00:00: (four) [place] %) 00 hours as Medical nebulizer needed for Bran ch solution Wheezing or Shortness of Breath. Via nebulizer albuterol 2018-04 Yes [id number] 2.5mg Inhale 3 Univers 2.5 mg /3 0-24 mL every 4 ity of mL (0.083 00:00: (four) [place] %) 00 hours as Medical nebulizer needed for Bran ch solution Wheezing or Shortness of Breath. Via nebulizer albuterol 2018-04 Yes [id number] 2.5mg Inhale 3 Univers 2.5 mg /3 0-24 mL every 4 ity of mL (0.083 00:00: (four) [place] %) 00 hours as Medical nebulizer needed for Bran ch solution Wheezing or Shortness of Breath. Via nebulizer albuterol 2018-04 Yes [id number] 2.5mg Inhale 3 Univers 2.5 mg /3 0-24 mL every 4 ity of mL (0.083 00:00: (four) [place] %) 00 hours as Medical nebulizer needed for Bran ch solution Wheezing or Shortness of Breath. Via nebulizer albuterol 2018-04 Yes [id number] 2.5mg Inhale 3 Univers 2.5 mg /3 0-24 mL every 4 ity of mL (0.083 00:00: ([facility]) [place] %) 00 hours as Medical nebulizer needed for Bran ch solution Wheezing or Shortness of Breath. Via nebulizer albuterol 2018-04 Yes [id number] 2.5mg Inhale 3 Univers 2.5 mg /3 0-24 mL every 4 ity of mL (0.083 00:00: (four) [place] %) 00 hours as Medical nebulizer needed for Bran ch solution Wheezing or Shortness of Breath. Via nebulizer albuterol 2018-04 Yes [id number] 2.5mg Inhale 3 Univers 2.5 mg /3 0-24 mL every 4 ity of mL (0.083 00:00: (four) [place] %) 00 hours as Medical nebulizer needed for Bran ch solution Wheezing or Shortness of Breath. Via nebulizer albuterol 2018-04 Yes [id number] 2.5mg Inhale 3 Univers 2.5 mg /3 0-24 mL every 4 ity of mL (0.083 00:00: (four) [place] %) 00 hours as Medical nebulizer needed for Bran ch solution Wheezing or Shortness of Breath. Via nebulizer albuterol 2018-04 Yes [id number] 2.5mg Inhale 3 Univers 2.5 mg /3 0-24 mL every 4 ity of mL (0.083 00:00: (four) [place] %) 00 hours as Medical nebulizer needed for Bran ch solution Wheezing or Shortness of Breath. Via nebulizer albuterol 2018-04 Yes [id number] 2.5mg Inhale 3 Univers 2.5 mg /3 0-24 mL every 4 ity of mL (0.083 00:00: (four) [place] %) 00 hours as Medical nebulizer needed for Bran ch solution Wheezing or Shortness of Breath. Via nebulizer albuterol 2018-04 Yes [id number] 2.5mg Inhale 3 Univers 2.5 mg /3 0-24 mL every 4 ity of mL (0.083 00:00: (four) [place] %) 00 hours as Medical nebulizer needed for Bran ch solution Wheezing or Shortness of Breath. Via nebulizer albuterol 2018-04 Yes [id number] 2.5mg Inhale 3 Univers 2.5 mg /3 0-24 mL every 4 ity of mL (0.083 00:00: ([facility]) [place] %) 00 hours as Medical nebulizer needed for Bran ch solution Wheezing or Shortness of Breath. Via nebulizer albuterol 2018-04 Yes [id number] 2.5mg Inhale 3 Univers 2.5 mg /3 0-24 mL every 4 ity of mL (0.083 00:00: (four) [place] %) 00 hours as Medical nebulizer needed for Bran ch solution Wheezing or Shortness of Breath. Via nebulizer albuterol 2018-04 Yes [id number] 2.5mg Inhale 3 Univers 2.5 mg /3 0-24 mL every 4 ity of mL (0.083 00:00: (four) [place] %) 00 hours as Medical nebulizer needed for Bran ch solution Wheezing or Shortness of Breath. Via nebulizer albuterol 2018-04 Yes [id number] 2.5mg Inhale 3 Univers 2.5 mg /3 0-24 mL every 4 ity of mL (0.083 00:00: (four) [place] %) 00 hours as Medical nebulizer needed for Bran ch solution Wheezing or Shortness of Breath. Via nebulizer albuterol 2018-04 Yes [id number] 2.5mg Inhale 3 Univers 2.5 mg /3 0-24 mL every 4 ity of mL (0.083 00:00: (four) [place] %) 00 hours as Medical nebulizer needed for Bran ch solution Wheezing or Shortness of Breath. Via nebulizer albuterol 2018-04 Yes [id number] 2.5mg Inhale 3 Univers 2.5 mg /3 0-24 mL every 4 ity of mL (0.083 00:00: (four) [place] %) 00 hours as Medical nebulizer needed for Bran ch solution Wheezing or Shortness of Breath. Via nebulizer albuterol 2018-04 Yes [id number] 2.5mg Inhale 3 Univers 2.5 mg /3 0-24 mL every 4 ity of mL (0.083 00:00: (four) [place] %) 00 hours as Medical nebulizer needed for Bran ch solution Wheezing or Shortness of Breath. Via nebulizer albuterol 2018-04 Yes [id number] 2.5mg Inhale 3 Univers 2.5 mg /3 0-24 mL every 4 ity of mL (0.083 00:00: (four) [place] %) 00 hours as Medical nebulizer needed for Bran ch solution Wheezing or Shortness of Breath. Via nebulizer albuterol 2018-04 Yes [id number] 2.5mg Inhale 3 Univers 2.5 mg /3 0-24 mL every 4 ity of mL (0.083 00:00: (four) [place] %) 00 hours as Medical nebulizer needed for Bran ch solution Wheezing or Shortness of Breath. Via nebulizer albuterol 2018-04 Yes [id number] 2.5mg Inhale 3 Univers 2.5 mg /3 0-24 mL every 4 ity of mL (0.083 00:00: (four) [place] %) 00 hours as Medical nebulizer needed for Bran ch solution Wheezing or Shortness of Breath. Via nebulizer albuterol 2018-04 Yes [id number] 2.5mg Inhale 3 Univers 2.5 mg /3 0-24 mL every 4 ity of mL (0.083 00:00: (four) [place] %) 00 hours as Medical nebulizer needed for Bran ch solution Wheezing or Shortness of Breath. Via nebulizer albuterol 2018-04 Yes [id number] 2.5mg Inhale 3 Univers 2.5 mg /3 0-24 mL every 4 ity of mL (0.083 00:00: (four) [place] %) 00 hours as Medical nebulizer needed for Bran ch solution Wheezing or Shortness of Breath. Via nebulizer albuterol 2018-04 Yes [id number] 2.5mg Inhale 3 Univers 2.5 mg /3 0-24 mL every 4 ity of mL (0.083 00:00: (four) [place] %) 00 hours as Medical nebulizer needed for Bran ch solution Wheezing or Shortness of Breath. Via nebulizer albuterol 2018-04 Yes [id number] 2.5mg Inhale 3 Univers 2.5 mg /3 0-24 mL every 4 ity of mL (0.083 00:00: (four) [place] %) 00 hours as Medical nebulizer needed for Bran ch solution Wheezing or Shortness of Breath. Via nebulizer albuterol 2018-04 Yes [id number] 2.5mg Inhale 3 Univers 2.5 mg /3 0-24 mL every 4 ity of mL (0.083 00:00: (four) [place] %) 00 hours as Medical nebulizer needed for Bran ch solution Wheezing or Shortness of Breath. Via nebulizer albuterol 2018-04 Yes [id number] 2.5mg Inhale 3 Univers 2.5 mg /3 0-24 mL every 4 ity of mL (0.083 00:00: (four) [place] %) 00 hours as Medical nebulizer needed for Bran ch solution Wheezing or Shortness of Breath. Via nebulizer albuterol 2018-04 Yes [id number] 2.5mg Inhale 3 Univers 2.5 mg /3 0-24 mL every 4 ity of mL (0.083 00:00: (four) [place] %) 00 hours as Medical nebulizer needed for Bran ch solution Wheezing or Shortness of Breath. Via nebulizer albuterol 2018-04 Yes [id number] 2.5mg Inhale 3 Univers 2.5 mg /3 0-24 mL every 4 ity of mL (0.083 00:00: (four) [place] %) 00 hours as Medical nebulizer needed for Bran ch solution Wheezing or Shortness of Breath. Via nebulizer albuterol 2018-04 Yes [id number] 2.5mg Inhale 3 Univers 2.5 mg /3 0-24 mL every 4 ity of mL (0.083 00:00: (four) [place] %) 00 hours as Medical nebulizer needed for Bran ch solution Wheezing or Shortness of Breath. Via nebulizer albuterol 2018-04 Yes [id number] 2.5mg Inhale 3 Univers 2.5 mg /3 0-24 mL every 4 ity of mL (0.083 00:00: (four) [place] %) 00 hours as Medical nebulizer needed for Bran ch solution Wheezing or Shortness of Breath. Via nebulizer albuterol 2018-04 Yes [id number] 2.5mg Inhale 3 Univers 2.5 mg /3 0-24 mL every 4 ity of mL (0.083 00:00: (four) [place] %) 00 hours as Medical nebulizer needed for Bran ch solution Wheezing or Shortness of Breath. Via nebulizer albuterol 2018-04 Yes [id number] 2.5mg Inhale 3 Univers 2.5 mg /3 0-24 mL every 4 ity of mL (0.083 00:00: (four) [place] %) 00 hours as Medical nebulizer needed for Bran ch solution Wheezing or Shortness of Breath. Via nebulizer albuterol 2018-04 Yes [id number] 2.5mg Inhale 3 Univers 2.5 mg /3 0-24 mL every 4 ity of mL (0.083 00:00: (four) [place] %) 00 hours as Medical nebulizer needed for Bran ch solution Wheezing or Shortness of Breath. Via nebulizer albuterol 2018-04 Yes [id number] 2.5mg Inhale 3 Univers 2.5 mg /3 0-24 mL every 4 ity of mL (0.083 00:00: (four) [place] %) 00 hours as Medical nebulizer needed for Bran ch solution Wheezing or Shortness of Breath. Via nebulizer albuterol 2018-04 Yes [id number] 2.5mg Inhale 3 Univers 2.5 mg /3 0-24 mL every 4 ity of mL (0.083 00:00: (four) [place] %) 00 hours as Medical nebulizer needed for Bran ch solution Wheezing or Shortness of Breath. Via nebulizer albuterol 2018-04 Yes [id number] 2.5mg Inhale 3 Univers 2.5 mg /3 0-24 mL every 4 ity of mL (0.083 00:00: (four) [place] %) 00 hours as Medical nebulizer needed for Bran ch solution Wheezing or Shortness of Breath. Via nebulizer albuterol 2018-04 Yes [id number] 2.5mg Inhale 3 Univers 2.5 mg /3 0-24 mL every 4 ity of mL (0.083 00:00: (four) [place] %) 00 hours as Medical nebulizer needed for Bran ch solution Wheezing or Shortness of Breath. Via nebulizer albuterol 2018-04 Yes [id number] 2.5mg Inhale 3 Univers 2.5 mg /3 0-24 mL every 4 ity of mL (0.083 00:00: (four) [place] %) 00 hours as Medical nebulizer needed for Bran ch solution Wheezing or Shortness of Breath. Via nebulizer albuterol 2018-04 Yes [id number] 2.5mg Inhale 3 Univers 2.5 mg /3 0-24 mL every 4 ity of mL (0.083 00:00: (four) [place] %) 00 hours as Medical nebulizer needed for Bran ch solution Wheezing or Shortness of Breath. Via nebulizer albuterol 2018-04 Yes [id number] 2.5mg Inhale 3 Univers 2.5 mg /3 0-24 mL every 4 ity of mL (0.083 00:00: (four) [place] %) 00 hours as Medical nebulizer needed for Bran ch solution Wheezing or Shortness of Breath. Via nebulizer albuterol 2018-04 Yes [id number] 2.5mg Inhale 3 Univers 2.5 mg /3 0-24 mL every 4 ity of mL (0.083 00:00: (four) [place] %) 00 hours as Medical nebulizer needed for Bran ch solution Wheezing or Shortness of Breath. Via nebulizer albuterol 2018-04 Yes [id number] 2.5mg Inhale 3 Univers 2.5 mg /3 0-24 mL every 4 ity of mL (0.083 00:00: (four) [place] %) 00 hours as Medical nebulizer needed for Bran ch solution Wheezing or Shortness of Breath. Via nebulizer albuterol 2018-04 Yes [id number] 2.5mg Inhale 3 Univers 2.5 mg /3 0-24 mL every 4 ity of mL (0.083 00:00: (four) [place] %) 00 hours as Medical nebulizer needed for Bran ch solution Wheezing or Shortness of Breath. Via nebulizer albuterol 2019-1 Yes [id number] 2.5mg Inhale 3 Univers 2.5 mg /3 0-24 mL every 4 ity of mL (0.083 00:00: (four) [place] %) 00 hours as Medical nebulizer needed for Bran ch solution Wheezing or Shortness of Breath. Via nebulizer albuterol 2018-04 Yes [id number] 2.5mg Inhale 3 Univers 2.5 mg /3 0-24 mL every 4 ity of mL (0.083 00:00: (four) [place] %) 00 hours as Medical nebulizer needed for Bran ch solution Wheezing or Shortness of Breath. Via nebulizer albuterol 2018-04 Yes [id number] 2.5mg Inhale 3 [facility] 2.5 mg /3 0-24 mL every 4 ity of mL (0.083 00:00: (four) [place] %) 00 hours as Medical nebulizer needed for Bran ch solution Wheezing or Shortness of Breath. Via nebulizer albuterol 2018-04 Yes [id number] 2.5mg Inhale 3 [facility] 2.5 mg /3 0-24 mL every 4 ity of mL (0.083 00:00: (four) [place] %) 00 hours as Medical nebulizer needed for Bran ch solution Wheezing or Shortness of Breath. Via nebulizer albuterol 2018-04 Yes [id number] 2.5mg Inhale 3 [facility] 2.5 mg /3 0-24 mL every 4 ity of mL (0.083 00:00: (four) [place] %) 00 hours as Medical nebulizer needed for Bran ch solution Wheezing or Shortness of Breath. Via nebulizer albuterol 2018-04 Yes [id number] 2.5mg Inhale 3 [facility] 2.5 mg /3 0-24 mL every 4 ity of mL (0.083 00:00: (four) [place] %) 00 hours as Medical nebulizer needed for Bran ch solution Wheezing or Shortness of Breath. Via nebulizer albuterol 2018-04 Yes [id number] 2.5mg Inhale 3 [facility] 2.5 mg /3 0-24 mL every 4 ity of mL (0.083 00:00: (four) [place] %) 00 hours as Medical nebulizer needed for Bran ch solution Wheezing or Shortness of Breath. Via nebulizer albuterol 2018-04 Yes [id number] 2.5mg Inhale 3 [facility] 2.5 mg /3 0-24 mL every 4 ity of mL (0.083 00:00: (four) [place] %) 00 hours as Medical nebulizer needed for Bran ch solution Wheezing or Shortness of Breath. Via nebulizer albuterol 2018-04 Yes [id number] 2.5mg Inhale 3 [facility] 2.5 mg /3 0-24 mL every 4 ity of mL (0.083 00:00: (four) [place] %) 00 hours as Medical nebulizer needed for Bran ch solution Wheezing or Shortness of Breath. Via nebulizer albuterol 2018-04 Yes [id number] 2.5mg Inhale 3 [facility] 2.5 mg /3 0-24 mL every 4 ity of mL (0.083 00:00: (four) [place] %) 00 hours as Medical nebulizer needed for Bran ch solution Wheezing or Shortness of Breath. Via nebulizer albuterol 2018-04 Yes [id number] 2.5mg Inhale 3 [facility] 2.5 mg /3 0-24 mL every 4 ity of mL (0.083 00:00: ([facility]) [place] %) 00 hours as Medical nebulizer needed for Bran ch solution Wheezing or Shortness of Breath. Via nebulizer albuterol 2018-04 Yes [id number] 2.5mg Inhale 3 [facility] 2.5 mg /3 0-24 mL every 4 ity of mL (0.083 00:00: (four) [place] %) 00 hours as Medical nebulizer needed for Bran ch solution Wheezing or Shortness of Breath. Via nebulizer albuterol 2018-04 Yes [id number] 2.5mg Inhale 3 [facility] 2.5 mg /3 0-24 mL every 4 ity of mL (0.083 00:00: (four) [place] %) 00 hours as Medical nebulizer needed for Bran ch solution Wheezing or Shortness of Breath. Via nebulizer albuterol 2018-04 Yes [id number] 2.5mg Inhale 3 [facility] 2.5 mg /3 0-24 mL every 4 ity of mL (0.083 00:00: (four) [place] %) 00 hours as Medical nebulizer needed for Bran ch solution Wheezing or Shortness of Breath. Via nebulizer albuterol 2018-04 Yes [id number] 2.5mg Inhale 3 [facility] 2.5 mg /3 0-24 mL every 4 ity of mL (0.083 00:00: (four) [place] %) 00 hours as Medical nebulizer needed for Bran ch solution Wheezing or Shortness of Breath. Via nebulizer albuterol 2018-04 Yes [id number] 2.5mg Inhale 3 [facility] 2.5 mg /3 0-24 mL every 4 ity of mL (0.083 00:00: (four) [place] %) 00 hours as Medical nebulizer needed for Bran ch solution Wheezing or Shortness of Breath. Via nebulizer albuterol 2018-04 Yes [id number] 2.5mg Inhale 3 [facility] 2.5 mg /3 0-24 mL every 4 ity of mL (0.083 00:00: (four) [place] %) 00 hours as Medical nebulizer needed for Bran ch solution Wheezing or Shortness of Breath. Via nebulizer albuterol 2018-04 Yes [id number] 2.5mg Inhale 3 [facility] 2.5 mg /3 0-24 mL every 4 ity of mL (0.083 00:00: (four) [place] %) 00 hours as Medical nebulizer needed for Bran ch solution Wheezing or Shortness of Breath. Via nebulizer albuterol 2018-04 Yes [id number] 2.5mg Inhale 3 [facility] 2.5 mg /3 0-24 mL every 4 ity of mL (0.083 00:00: (four) [place] %) 00 hours as Medical nebulizer needed for Bran ch solution Wheezing or Shortness of Breath. Via nebulizer metoprolol 2018-04 Yes 100mg QD Take 100 [...] 00:00: [place] mL 00 injection [facility] dulaglutide 2018-04 Yes 1.5mg Inject 1.5 Univers (TRULICITY) 0-08 mg under ity of 1.5 mg/0.5 00:00: [place] mL 00 injection [facility] dulaglutide 2018-04 Yes INJECT Meth mirian (Trulicity) 0-08 1.5MG (1 st 1.5 mg/0.5 00:00: PEN) [facility] mL 00 SUBCUTANEO l subcutaneou USLY EVERY s pen WEEK LINZESS 290 2018-04 Yes 290ug QD Take [...] 00:00: mouth [facility] 00 daily. l traMADol Yes [id number] 50mg Take 1 Un wend[facility] (ULTRAM) 50 9-18 tablet by ity of mg tablet 00:00: mouth [place] 00 every 6 Medical (six) Branch hours as needed for Pain (scale 7-10). traMADol Yes [id number] 50mg Take 1 [facility] w[facility] (ULTRAM) 50 9-18 tablet by ity of mg tablet 00:00: mouth [place] 00 every 6 Medical (six) Branch hours as needed for Pain (scale 7-10). traMADol Yes [id number] 50mg Take 1 [facility] (ULTRAM) 50 9-18 tablet by ity of mg tablet 00:00: mouth [place] 00 every 6 Medical (six) Branch hours as needed for Pain (scale 7-10). traMADol Yes [id number] 50mg Take 1 [facility] w[facility] (ULTRAM) 50 9-18 tablet by ity of mg tablet 00:00: mouth [place] 00 every 6 Medical (six) Branch hours as needed for Pain (scale 7-10). traMADol Yes [id number] 50mg Take 1 [facility] (ULTRAM) 50 9-18 tablet by ity of mg tablet 00:00: mouth [place] 00 every 6 Medical (six) Branch hours as needed for Pain (scale 7-10). traMADol Yes [id number] 50mg Take 1 [facility] (ULTRAM) 50 9-18 tablet by ity of mg tablet 00:00: mouth [place] 00 every 6 Medical (six) Branch hours as needed for Pain (scale 7-10). traMADol 2019-0 Yes [id number] 50mg Take 1 [facility] (ULTRAM) 50 9-18 tablet by ity of mg tablet 00:00: mouth [place] 00 every 6 Medical (six) Branch hours as needed for Pain (scale 7-10). traMADol 2019-0 Yes [id number] 50mg Take 1 [facility] (ULTRAM) 50 9-18 tablet by ity of mg tablet 00:00: mouth [place] 00 every 6 Medical (six) Branch hours as needed for Pain (scale 7-10). traMADol 2019-0 Yes [id number] 50mg Take 1 Un [facility] (ULTRAM) 50 9-18 tablet by ity of mg tablet 00:00: mouth [place] 00 every 6 Medical (six) Branch hours as needed for Pain (scale 7-10). traMADol 2019-0 Yes [id number] 50mg Take 1 Un [facility] (ULTRAM) 50 9-18 tablet by ity of mg tablet 00:00: mouth [place] 00 every 6 Medical (six) Branch hours as needed for Pain (scale 7-10). traMADol 2019-0 Yes [id number] 50mg Take 1 [facility] (ULTRAM) 50 9-18 tablet by ity of mg tablet 00:00: mouth [place] 00 every 6 Medical (six) Branch hours as needed for Pain (scale 7-10). traMADol 2019-0 Yes [id number] 50mg Take 1 Un [facility] (ULTRAM) 50 9-18 tablet by ity of mg tablet 00:00: mouth [place] 00 every 6 Medical (six) Branch hours as needed for Pain (scale 7-10). traMADol 2019-0 Yes [id number] 50mg Take 1 Un [facility] (ULTRAM) 50 9-18 tablet by ity of mg tablet 00:00: mouth [place] 00 every 6 Medical (six) Branch hours as needed for Pain (scale 7-10). traMADol 2019-0 Yes [id number] 50mg Take 1 [facility] (ULTRAM) 50 9-18 tablet by ity of mg tablet 00:00: mouth [place] 00 every 6 Medical (six) Branch hours as needed for Pain (scale 7-10). traMADol 2019-0 Yes [id number] 50mg Take 1 Un [facility] (ULTRAM) 50 9-18 tablet by ity of mg tablet 00:00: mouth [place] 00 every 6 Medical (six) Branch hours as needed for Pain (scale 7-10). traMADol 2019-0 Yes [id number] 50mg Take 1 [facility] (ULTRAM) 50 9-18 tablet by ity of mg tablet 00:00: mouth [place] 00 every 6 Medical (six) Branch hours as needed for Pain (scale 7-10). traMADol 2019-0 Yes [id number] 50mg Take 1 [facility] (ULTRAM) 50 9-18 tablet by ity of mg tablet 00:00: mouth [place] 00 every 6 Medical (six) Branch hours as needed for Pain (scale 7-10). traMADol 2019-0 Yes [id number] 50mg Take 1 [facility] (ULTRAM) 50 9-18 tablet by ity of mg tablet 00:00: mouth [place] 00 every 6 Medical (six) Branch hours as needed for Pain (scale 7-10). traMADol 2019-0 Yes [id number] 50mg Take 1 [facility] (ULTRAM) 50 9-18 tablet by ity of mg tablet 00:00: mouth [place] 00 every 6 Medical (six) Branch hours as needed for Pain (scale 7-10). traMADol 2019-0 Yes [id number] 50mg Take 1 [facility] (ULTRAM) 50 9-18 tablet by ity of mg tablet 00:00: mouth [place] 00 every 6 Medical (six) Branch hours as needed for Pain (scale 7-10). traMADol 2019-0 Yes [id number] 50mg Take 1 [facility] (ULTRAM) 50 9-18 tablet by ity of mg tablet 00:00: mouth [place] 00 every 6 Medical (six) Branch hours as needed for Pain (scale 7-10). traMADol 2019-0 Yes [id number] 50mg Take 1 [facility] (ULTRAM) 50 9-18 tablet by ity of mg tablet 00:00: mouth [place] 00 every 6 Medical (six) Branch hours as needed for Pain (scale 7-10). traMADol 2019-0 Yes [id number] 50mg Take 1 [facility] (ULTRAM) 50 9-18 tablet by ity of mg tablet 00:00: mouth [place] 00 every 6 Medical (six) Branch hours as needed for Pain (scale 7-10). traMADol 2019-0 Yes [id number] 50mg Take 1 [facility] (ULTRAM) 50 9-18 tablet by ity of mg tablet 00:00: mouth [place] 00 every 6 Medical (six) Branch hours as needed for Pain (scale 7-10). traMADol 2019-0 Yes [id number] 50mg Take 1 [facility] (ULTRAM) 50 9-18 tablet by ity of mg tablet 00:00: mouth [place] 00 every 6 Medical (six) Branch hours as needed for Pain (scale 7-10). traMADol 2019-0 Yes [id number] 50mg Take 1 [facility] (ULTRAM) 50 9-18 tablet by ity of mg tablet 00:00: mouth [place] 00 every 6 Medical (six) Branch hours as needed for Pain (scale 7-10). traMADol 2019-0 Yes [id number] 50mg Take 1 [facility] (ULTRAM) 50 9-18 tablet by ity of mg tablet 00:00: mouth [place] 00 every 6 Medical (six) Branch hours as needed for Pain (scale 7-10). traMADol 2019-0 Yes [id number] 50mg Take 1 [facility] (ULTRAM) 50 9-18 tablet by ity of mg tablet 00:00: mouth [place] 00 every 6 Medical (six) Branch hours as needed for Pain (scale 7-10). traMADol 2019-0 Yes [id number] 50mg Take 1 [facility] (ULTRAM) 50 9-18 tablet by ity of mg tablet 00:00: mouth [place] 00 every 6 Medical (six) Branch hours as needed for Pain (scale 7-10). traMADol 2019-0 Yes [id number] 50mg Take 1 [facility] (ULTRAM) 50 9-18 tablet by ity of mg tablet 00:00: mouth [place] 00 every 6 Medical (six) Branch hours as needed for Pain (scale 7-10). traMADol 2019-0 Yes [id number] 50mg Take 1 [facility] (ULTRAM) 50 9-18 tablet by ity of mg tablet 00:00: mouth [place] 00 every 6 Medical (six) Branch hours as needed for Pain (scale 7-10). traMADol 2019-0 Yes [id number] 50mg Take 1 [facility] (ULTRAM) 50 9-18 tablet by ity of mg tablet 00:00: mouth [place] 00 every 6 Medical (six) Branch hours as needed for Pain (scale 7-10). traMADol 2019-0 Yes [id number] 50mg Take 1 [facility] (ULTRAM) 50 9-18 tablet by ity of mg tablet 00:00: mouth [place] 00 every 6 Medical (six) Branch hours as needed for Pain (scale 7-10). traMADol 2019-0 Yes [id number] 50mg Take 1 [facility] (ULTRAM) 50 9-18 tablet by ity of mg tablet 00:00: mouth [place] 00 every 6 Medical (six) Branch hours as needed for Pain (scale 7-10). traMADol 2019-0 Yes [id number] 50mg Take 1 [facility] (ULTRAM) 50 9-18 tablet by ity of mg tablet 00:00: mouth [place] 00 every 6 Medical (six) Branch hours as needed for Pain (scale 7-10). traMADol 2019-0 Yes [id number] 50mg Take 1 [facility] (ULTRAM) 50 9-18 tablet by ity of mg tablet 00:00: mouth [place] 00 every 6 Medical (six) Branch hours as needed for Pain (scale 7-10). traMADol 2019-0 Yes [id number] 50mg Take 1 [facility] (ULTRAM) 50 9-18 tablet by ity of mg tablet 00:00: mouth [place] 00 every 6 Medical (six) Branch hours as needed for Pain (scale 7-10). traMADol 2019-0 Yes [id number] 50mg Take 1 [facility] (ULTRAM) 50 9-18 tablet by ity of mg tablet 00:00: mouth [place] 00 every 6 Medical (six) Branch hours as needed for Pain (scale 7-10). traMADol 2019-0 Yes [id number] 50mg Take 1 [facility] (ULTRAM) 50 9-18 tablet by ity of mg tablet 00:00: mouth [place] 00 every 6 Medical (six) Branch hours as needed for Pain (scale 7-10). traMADol 2019-0 Yes [id number] 50mg Take 1 [facility] (ULTRAM) 50 9-18 tablet by ity of mg tablet 00:00: mouth [place] 00 every 6 Medical (six) Branch hours as needed for Pain (scale 7-10). traMADol 2019-0 Yes [id number] 50mg Take 1 [facility] (ULTRAM) 50 9-18 tablet by ity of mg tablet 00:00: mouth [place] 00 every 6 Medical (six) Branch hours as needed for Pain (scale 7-10). traMADol 2019-0 Yes [id number] 50mg Take 1 [facility] (ULTRAM) 50 9-18 tablet by ity of mg tablet 00:00: mouth [place] 00 every 6 Medical (six) Branch hours as needed for Pain (scale 7-10). traMADol 2019-0 Yes [id number] 50mg Take 1 [facility] (ULTRAM) 50 9-18 tablet by ity of mg tablet 00:00: mouth [place] 00 every 6 Medical (six) Branch hours as needed for Pain (scale 7-10). traMADol 2019-0 Yes [id number] 50mg Take 1 [facility] (ULTRAM) 50 9-18 tablet by ity of mg tablet 00:00: mouth [place] 00 every 6 Medical (six) Branch hours as needed for Pain (scale 7-10). traMADol 2019-0 Yes [id number] 50mg Take 1 Un [facility] (ULTRAM) 50 9-18 tablet by ity of mg tablet 00:00: mouth [place] 00 every 6 Medical (six) Branch hours as needed for Pain (scale 7-10). traMADol 2019-0 Yes [id number] 50mg Take 1 [facility] (ULTRAM) 50 9-18 tablet by ity of mg tablet 00:00: mouth [place] 00 every 6 Medical (six) Branch hours as needed for Pain (scale 7-10). traMADol 2019-0 Yes [id number] 50mg Take 1 [facility] (ULTRAM) 50 9-18 tablet by ity of mg tablet 00:00: mouth [place] 00 every 6 Medical (six) Branch hours as needed for Pain (scale 7-10). traMADol 2019-0 Yes [id number] 50mg Take 1 [facility] (ULTRAM) 50 9-18 tablet by ity of mg tablet 00:00: mouth [place] 00 every 6 Medical (six) Branch hours as needed for Pain (scale 7-10). traMADol 2019-0 Yes [id number] 50mg Take 1 [facility] (ULTRAM) 50 9-18 tablet by ity of mg tablet 00:00: mouth [place] 00 every 6 Medical (six) Branch hours as needed for Pain (scale 7-10). traMADol 2019-0 Yes [id number] 50mg Take 1 [facility] (ULTRAM) 50 9-18 tablet by ity of mg tablet 00:00: mouth [place] 00 every 6 Medical (six) Branch hours as needed for Pain (scale 7-10). traMADol 2019-0 Yes [id number] 50mg Take 1 [facility] (ULTRAM) 50 9-18 tablet by ity of mg tablet 00:00: mouth [place] 00 every 6 Medical (six) Branch hours as needed for Pain (scale 7-10). traMADol 2019-0 Yes [id number] 50mg Take 1 [facility] (ULTRAM) 50 9-18 tablet by ity of mg tablet 00:00: mouth [place] 00 every 6 Medical (six) Branch hours as needed for Pain (scale 7-10). traMADol 2019-0 Yes [id number] 50mg Take 1 [facility] (ULTRAM) 50 9-18 tablet by ity of mg tablet 00:00: mouth [place] 00 every 6 Medical (six) Branch hours as needed for Pain (scale 7-10). traMADol 2019-0 Yes [id number] 50mg Take 1 [facility] (ULTRAM) 50 9-18 tablet by ity of mg tablet 00:00: mouth [place] 00 every 6 Medical (six) Branch hours as needed for Pain (scale 7-10). traMADol 2019-0 Yes [id number] 50mg Take 1 [facility] (ULTRAM) 50 9-18 tablet by ity of mg tablet 00:00: mouth [place] 00 every 6 Medical (six) Branch hours as needed for Pain (scale 7-10). traMADol 2019-0 Yes [id number] 50mg Take 1 [facility] (ULTRAM) 50 9-18 tablet by ity of mg tablet 00:00: mouth [place] 00 every 6 Medical (six) Branch hours as needed for Pain (scale 7-10). traMADol 2019-0 Yes [id number] 50mg Take 1 [facility] (ULTRAM) 50 9-18 tablet by ity of mg tablet 00:00: mouth [place] 00 every 6 Medical (six) Branch hours as needed for Pain (scale 7-10). traMADol Yes [id number] 50mg Take 1 [facility] (ULTRAM) 50 9-18 tablet by ity of mg tablet 00:00: mouth [place] 00 every 6 Medical (six) Branch hours as needed for Pain (scale 7-10). traMADol Yes [id number] 50mg Take 1 [facility] (ULTRAM) 50 9-18 tablet by ity of mg tablet 00:00: mouth [place] 00 every 6 Medical (six) Branch hours as needed for Pain (scale 7-10). traMADol Yes [id number] 50mg Take 1 [facility] (ULTRAM) 50 9-18 tablet by ity of mg tablet 00:00: mouth [place] 00 every 6 Medical (six) Branch hours as needed for Pain (scale 7-10). traMADol 2022- No [id number] 50mg Take 1 U nivers (ULTRAM) 50 [...] MOUTH ONCE [place] [facility] TAKE 1 Unive rs (ADALAT CC) 8-28 TABLET BY ity of 60 MG 24 hr 00:00: MOUTH ONCE [place] [facility] 60[facility] QD Take 60 mg M ethodi CC (ADALAT 8-[address] [facility]) 60 MG 00:00: daily. Hospit a 24 hr 00 l tablet glimepiride Yes 1 tablet Me thodi (AMARYL) [...] ity of ophthalmic 00:00: [place] emulsion 00 [facility] RESTASIS Yes Univers 0.05 % 8-14 ity of ophthalmic 00:00: [place] emulsion 00 [facility] tyron [facility] [place] glimepiride Yes Univer s (AMARYL) 2 7-29 ity of mg tablet 00:00: [place] [facility] [place] glimepiride Yes Univer s (AMARYL) 2 7-29 ity of mg tablet 00:00: [place] [facility] [place] omeprazole Yes TAKE 1 Unive rs (PriLOSEC) 7-22 CAPSULE BY ity of 40 MG 00:00: MOUTH ONCE [place] capsule 00 DAILY MD Zamzam ackerman [facility] [place] omeprazole Yes TAKE 1 Unive rs (PriLOSEC) 7-22 CAPSULE BY ity of 40 MG 00:00: MOUTH ONCE [place] capsule 00 DAILY MD Zamzam ackerman [facility] [place] ergocalcife Yes TAKE 1 Meth mirian rol [...] l (241.3 mg DAILY magnesium) tablet magnesium 2018-0 Yes TAKE 2 [facility] oxide [facility]-[address] (MAG-OX) 00:00: MOUTH 4 Hospit a 400 mg 00 TIMES l (241.3 mg DAILY magnesium) tablet magnesium 2018-0 Yes TAKE 2 [facility] oxide 4-[address] (MAG-OX) 00:00: MOUTH 4 Hospit a 400 mg 00 TIMES l (241.3 mg DAILY magnesium) tablet metFORMIN 2018-0 Yes 1000mg Q.5D Take 1,000 [facility] (GLUCOPHAGE 3-[address] ) 1,000 mg 00:00: mouth 2 [facility]osp [facility] tablet 00 (two) l times a day. metFORMIN 2018-0 Yes 1000mg Q.5D Take 1,000 [facility] (GLUCOPHAGE 3-[address] ) 1,000 mg 00:00: mouth 2 [facility]osp [facility] tablet 00 (two) l times a day. lancets 33 2019-0 Yes [id number] Use as [facility] gauge Misc 3-06 directed. ity of 00:00: E11.. [place] 00 Check once Medical daily Branch lancets 33 2019-0 Yes [id number] Use as Univers gauge Misc 3-06 directed. ity of 00:00: E11.. [place] 00 Check once Medical daily Branch lancets 33 2019-0 Yes [id number] Use as [facility] gauge Misc 3-06 directed. ity of 00:00: E11.. [place] 00 Check once Medical daily Branch lancets 33 2019-0 Yes [id number] Use as Univers gauge Misc 3-06 directed. ity of 00:00: E11.. [place] 00 Check once Medical daily Branch lancets 33 2019-0 Yes [id number] Use as Univers gauge Misc 3-06 directed. ity of 00:00: E11.. [place] 00 Check once Medical daily Branch lancets 33 2019-0 Yes [id number] Use as [facility] gauge Misc 3-06 directed. ity of 00:00: E11.. [place] 00 Check once Medical daily Branch lancets 33 2019-0 Yes [id number] Use as Univers gauge Misc 3-06 directed. ity of 00:00: E11.21. [place] 00 Check once Medical daily Branch lancets 33 2019-0 Yes [id number] Use as Univers gauge Misc 3-06 directed. ity of 00:00: E11.. [place] 00 Check once Medical daily Branch lancets 33 2019-0 Yes [id number] Use as Univers gauge Misc 3-06 directed. ity of 00:00: E11.. [place] 00 Check once Medical daily Branch lancets 33 2019-0 Yes [id number] Use as Univers gauge Misc 3-06 directed. ity of 00:00: .. [place] 00 Check once Medical daily Branch lancets 33 2019-0 Yes [id number] Use as [facility] gauge Misc 3-06 directed. ity of 00:00: E11.. [place] 00 Check once Medical daily Branch lancets 33 2019-0 Yes [id number] Use as [facility] gauge Misc 3-06 directed. ity of 00:00: . [place] 00 Check once Medical daily Branch lancets 33 2019-0 Yes [id number] Use as Univers gauge Misc 3-06 directed. ity of 00:00: .. [place] 00 Check once Medical daily Branch lancets 33 2019-0 Yes [id number] Use as Univers gauge Misc 3-06 directed. ity of 00:00: .. [place] 00 Check once Medical daily Branch lancets 33 2019-0 Yes [id number] Use as Univers gauge Misc 3-06 directed. ity of 00:00: .. [place] 00 Check once Medical daily Branch lancets 33 2019-0 Yes [id number] Use as Univers gauge Misc 3-06 directed. ity of 00:00: .. [place] 00 Check once Medical daily Branch lancets 33 2019-0 Yes [id number] Use as Univers gauge Misc 3-06 directed. ity of 00:00: .. [place] 00 Check once Medical daily Branch lancets 33 2019-0 Yes [id number] Use as Univers gauge Misc 3-06 directed. ity of 00:00: .. [place] 00 Check once Medical daily Branch lancets 33 2019-0 Yes [id number] Use as Univers gauge Misc 3-06 directed. ity of 00:00: .. [place] 00 Check once Medical daily Branch lancets 33 2019-0 Yes [id number] Use as Univers gauge Misc 3-06 directed. ity of 00:00: E11.. [place] 00 Check once Medical daily Branch lancets 33 2019-0 Yes [id number] Use as Univers gauge Misc 3-06 directed. ity of 00:00: E11.21. [place] 00 Check once Medical daily Branch lancets 33 2019-0 Yes [id number] Use as Univers gauge Misc 3-06 directed. ity of 00:00: E11.21. [place] 00 Check once Medical daily Branch lancets 33 2019-0 Yes [id number] Use as Univers gauge Misc 3-06 directed. ity of 00:00: E11.. [place] 00 Check once Medical daily Branch lancets 33 2019-0 Yes [id number] Use as Univers gauge Misc 3-06 directed. ity of 00:00: E11.. [place] 00 Check once Medical daily Branch lancets 33 2019-0 Yes [id number] Use as Univers gauge Misc 3-06 directed. ity of 00:00: E11.. [place] 00 Check once Medical daily Branch lancets 33 2019-0 Yes [id number] Use as Univers gauge Misc 3-06 directed. ity of 00:00: E11.. [place] 00 Check once Medical daily Branch lancets 33 2019-0 Yes [id number] Use as Univers gauge Misc 3-06 directed. ity of 00:00: E11.. [place] 00 Check once Medical daily Branch lancets 33 2019-0 Yes [id number] Use as Univers gauge Misc 3-06 directed. ity of 00:00: E11.. [place] 00 Check once Medical daily Branch lancets 33 2019-0 Yes [id number] Use as Univers gauge Misc 3-06 directed. ity of 00:00: E11.. [place] 00 Check once Medical daily Branch lancets 33 2019-0 Yes [id number] Use as Univers gauge Misc 3-06 directed. ity of 00:00: E11.. [place] 00 Check once Medical daily Branch lancets 33 2019-0 Yes [id number] Use as Univers gauge Misc 3-06 directed. ity of 00:00: E11.. [place] 00 Check once Medical daily Branch lancets 33 2019-0 Yes [id number] Use as Univers gauge Misc 3-06 directed. ity of 00:00: E11.21. [place] 00 Check once Medical daily Branch lancets 33 2019-0 Yes [id number] Use as Univers gauge Misc 3-06 directed. ity of 00:00: E11.. [place] 00 Check once Medical daily Branch lancets 33 2019-0 Yes [id number] Use as Univers gauge Misc 3-06 directed. ity of 00:00: E11.. [place] 00 Check once Medical daily Branch lancets 33 2019-0 Yes [id number] Use as Univers gauge Misc 3-06 directed. ity of 00:00: .. [place] 00 Check once Medical daily Branch lancets 33 2019-0 Yes [id number] Use as Univers gauge Misc 3-06 directed. ity of 00:00: E11.. [place] 00 Check once Medical daily Branch lancets 33 2019-0 Yes [id number] Use as Univers gauge Misc 3-06 directed. ity of 00:00: . [place] 00 Check once Medical daily Branch lancets 33 2019-0 Yes [id number] Use as Univers gauge Misc 3-06 directed. ity of 00:00: .. [place] 00 Check once Medical daily Branch lancets 33 2019-0 Yes [id number] Use as Univers gauge Misc 3-06 directed. ity of 00:00: .. [place] 00 Check once Medical daily Branch lancets 33 2019-0 Yes [id number] Use as Univers gauge Misc 3-06 directed. ity of 00:00: .. [place] 00 Check once Medical daily Branch lancets 33 2019-0 Yes [id number] Use as Univers gauge Misc 3-06 directed. ity of 00:00: .. [place] 00 Check once Medical daily Branch lancets 33 2019-0 Yes [id number] Use as Univers gauge Misc 3-06 directed. ity of 00:00: .. [place] 00 Check once Medical daily Branch lancets 33 2019-0 Yes [id number] Use as Univers gauge Misc 3-06 directed. ity of 00:00: .. [place] 00 Check once Medical daily Branch lancets 33 2019-0 Yes [id number] Use as Univers gauge Misc 3-06 directed. ity of 00:00: .. [place] 00 Check once Medical daily Branch lancets 33 2019-0 Yes [id number] Use as Univers gauge Misc 3-06 directed. ity of 00:00: E11.. [place] 00 Check once Medical daily Branch lancets 33 2019-0 Yes [id number] Use as Univers gauge Misc 3-06 directed. ity of 00:00: . 00 Check once Medical daily Branch lancets 33 2019-0 Yes [id number] Use as Univers gauge Misc 3-06 directed. ity of 00:00: . 00 Check once Medical daily Branch lancets 33 2019-0 Yes [id number] Use as Univers gauge Misc 3-06 directed. ity of 00:: . 00 Check once Medical daily Branch lancets 33 2019-0 Yes [id number] Use as Univers gauge Misc 3-06 directed. ity of 00:00: . 00 Check once Medical daily Branch lancets 33 2019-0 Yes [id number] Use as [facility] gauge Misc 3-06 directed. [facility] of 00:: . 00 Check once Medical daily Branch lancets 33 2019-0 Yes [id number] Use as [facility] gauge Misc 3-06 directed. ity of 00:: . 00 Check once Medical daily Branch lancets 33 2019-0 Yes [id number] Use as [facility] gauge Misc 3-06 directed. ity of 00:: . 00 Check once Medical daily Branch lancets 33 2019-0 Yes [id number] Use as [facility] gauge Misc 3-06 directed. ity of 00:: . 00 Check once Medical daily Branch lancets 33 2019-0 Yes [id number] Use as [facility] gauge Misc 3-06 directed. ity of 00:: . 00 Check once Medical daily Branch lancets 33 2019-0 Yes [id number] Use as [facility] gauge Misc 3-06 directed. ity of 00:00: . 00 Check once Medical daily Branch lancets 33 2019-0 Yes [id number] Use as [facility] gauge Misc 3-06 directed. ity of 00:00: . 00 Check once Medical daily Branch metFORMIN 2019-0 Yes 1000mg Q.5D Take 1,000 [facility] (GLUCOPHAGE 3-[address] ) 1,000 mg 00:00: mouth 2 [facility] tablet 00 (two) l times a day. lancets 33 2019-0 3- No [id number] Use as [facility] gauge Misc 3- directed. ity of 00:00: 00:00 [email or web address]. [place] 00 :00 Check once Medical daily Branch rosuvastati 0 Yes TAKE 1 [facility] mir[facility] n (CRESTOR) 2-[address] 20 MG 00:00: [facility] tablet 00 BEDTIME l STOP TAKING ATORVASTAT IN rosuvastati Yes TAKE 1 [facility] (CRESTOR) 2-[address] 20 MG 00:00: [facility]OUTH AT [facility] tablet 00 BEDTIME l STOP TAKING ATORVASTAT IN rosuvastati Yes TAKE 1 [facility] (CRESTOR) 2-[address] 20 MG 00:00: MOUTH AT [facility] tablet 00 BEDTIME l STOP TAKING ATORVASTAT IN inhalationa 0 Yes [id number] [facility] spacing 1-11 substitute ity of device 00:00: other spacing onboarding specialist Branch inhalationa 2019-0 Yes [id number] [facility] spacing 1-11 substitute ity of device 00:00: other [facility] onboarding specialist Branch inhalationa 2019-0 Yes [id number] May [facility] vers [facility] spacing 1-11 substitute ity of device 00:00: other [facility] onboarding specialist Branch inhalationa 2019-0 Yes [id number] [facility] vers [facility] spacing 1-11 substitute ity of device 00:00: other [facility] onboarding specialist Branch inhalationa 2019-0 Yes [id number] [facility] vers [facility] spacing 1-11 substitute ity of device 00:00: other [facility] onboarding specialist Branch inhalationa 2019-0 Yes [id number] [facility] spacing 1-11 substitute ity of device 00:00: other spacing onboarding specialist Branch inhalationa 2019-0 Yes [id number] [facility] vers [facility] spacing 1-11 substitute ity of device 00:00: other [facility] onboard[facility] specialist Branch inhalationa 2019-0 Yes [id number] [facility] spacing 1-11 substitute ity of device 00:00: other [facility] onboard[facility] specialist Branch inhalationa 2019-0 Yes [id number] [facility] vers [facility] spacing 1-11 substitute ity of device 00:00: other [facility] onboard[facility] specialist Branch inhalationa 2019-0 Yes [id number] [facility] spacing 1-11 substitute ity of device 00:00: other spacing onboarding specialist Branch inhalationa 2019-0 Yes [id number] [facility] spacing 1-11 substitute ity of device 00:00: other spacing onboarding specialist Branch inhalationa 2019-0 Yes [id number] [facility] vers [facility] spacing 1-11 substitute ity of device 00:00: other spacing onboarding specialist Branch inhalationa 2019-0 Yes [id number] [facility] vers [facility] spacing 1-11 substitute ity of device 00:00: other spacing onboarding specialist Branch inhalationa 2019-0 Yes [id number] [facility] spacing 1-11 substitute ity of device 00:00: other spacing onboarding specialist Branch inhalationa 2019-0 Yes [id number] [facility] spacing 1-11 substitute ity of device 00:00: other spacing onboarding specialist Branch inhalationa 2019-0 Yes [id number] [facility] spacing 1-11 substitute ity of device 00:00: other spacing onboarding specialist Branch inhalationa 2019-0 Yes [id number] [facility] spacing 1-11 substitute ity of device 00:00: other spacing onboarding specialist Branch inhalationa 2019-0 Yes [id number] [facility] spacing 1-11 substitute ity of device 00:00: other spacing onboarding specialist Branch inhalationa 2019-0 Yes [id number] [facility] spacing 1-11 substitute ity of device 00:00: other spacing onboarding specialist Branch inhalationa 2019-0 Yes [id number] [facility] spacing 1-11 substitute ity of device 00:00: other spacing onboarding specialist Branch inhalationa 2019-0 Yes [id number] [facility] spacing 1-11 substitute ity of device 00:00: other spacing onboarding specialist Branch inhalationa 2019-0 Yes [id number] [facility] spacing 1-11 substitute ity of device 00:00: other spacing onboarding specialist Branch inhalationa 2019-0 Yes [id number] [facility] vers [facility] spacing 1-11 substitute ity of device 00:00: other spacing onboarding specialist Branch inhalationa 2019-0 Yes [id number] [facility] spacing 1-11 substitute ity of device 00:00: other spacing onboarding specialist Branch inhalationa 2019-0 Yes [id number] [facility] vers [facility] spacing 1-11 substitute ity of device 00:00: other spacing onboarding specialist Branch inhalationa 2019-0 Yes [id number] [facility] spacing 1-11 substitute ity of device 00:00: other spacing onboarding specialist Branch inhalationa 2019-0 Yes [id number] [facility] spacing 1-11 substitute ity of device 00:00: other spacing onboarding specialist Branch inhalationa 2019-0 Yes [id number] [facility] spacing 1-11 substitute ity of device 00:00: other spacing onboarding specialist Branch inhalationa 2019-0 Yes [id number] [facility] spacing 1-11 substitute ity of device 00:00: other spacing onboarding specialist Branch inhalationa 2019-0 Yes [id number] [facility] spacing 1-11 substitute ity of device 00:00: other spacing onboarding specialist Branch inhalationa 2019-0 Yes [id number] [facility] spacing 1-11 substitute ity of device 00:00: other spacing onboarding specialist Branch inhalationa 2019-0 Yes [id number] [facility] spacing 1-11 substitute ity of device 00:00: other spacing onboarding specialist Branch inhalationa 2019-0 Yes [id number] [facility] spacing 1-11 substitute ity of device 00:00: other spacing onboarding specialist Branch inhalationa 2019-0 Yes [id number] [facility] spacing 1-11 substitute ity of device 00:00: other spacing onboarding specialist Branch inhalationa 2019-0 Yes [id number] [facility] spacing 1-11 substitute ity of device 00:00: other spacing onboarding specialist Branch inhalationa 2019-0 Yes [id number] [facility] spacing 1-11 substitute ity of device 00:00: other spacing onboarding specialist Branch inhalationa 2019-0 Yes [id number] [facility] spacing 1-11 substitute ity of device 00:00: other spacing onboarding specialist Branch inhalationa 2019-0 Yes [id number] [facility] spacing 1-11 substitute ity of device 00:00: other spacing onboarding specialist Branch inhalationa 2019-0 Yes [id number] [facility] spacing 1-11 substitute ity of device 00:00: other spacing onboarding specialist Branch inhalationa 2019-0 Yes [id number] [facility] spacing 1-11 substitute ity of device 00:00: other spacing onboarding specialist Branch inhalationa 2019-0 Yes [id number] [facility] spacing 1-11 substitute ity of device 00:00: other spacing onboarding specialist Branch inhalationa 2019-0 Yes [id number] [facility] spacing 1-11 substitute ity of device 00:00: other spacing onboarding specialist Branch inhalationa 2019-0 Yes [id number] [facility] spacing 1-11 substitute ity of device 00:00: other spacing onboarding specialist Branch inhalationa 2019-0 Yes [id number] [facility] spacing 1-11 substitute ity of device 00:00: other spacing onboarding specialist Branch inhalationa 2019-0 Yes [id number] [facility] spacing 1-11 substitute ity of device 00:00: other spacing onboarding specialist Branch inhalationa 2019-0 Yes [id number] [facility] spacing 1-11 substitute ity of device 00:00: other spacing onboarding specialist Branch inhalationa 2019-0 Yes [id number] [facility] vers [facility] spacing 1-11 substitute ity of device 00:00: other spacing onboarding specialist Branch inhalationa 2019-0 Yes [id number] [facility] spacing 1-11 substitute ity of device 00:00: other spacing onboarding specialist Branch inhalationa 2019-0 Yes [id number] [facility] spacing 1-11 substitute ity of device 00:00: other spacing onboarding specialist Branch inhalationa 2019-0 Yes [id number] [facility] spacing 1-11 substitute ity of device 00:00: other spacing onboarding specialist Branch inhalationa 2019-0 Yes [id number] [facility] spacing 1-11 substitute ity of device 00:00: other spacing onboarding specialist Branch inhalationa 2019-0 Yes [id number] [facility] spacing 1-11 substitute ity of device 00:00: other spacing onboarding specialist Branch inhalationa 2019-0 Yes [id number] [facility] spacing 1-11 substitute ity of device 00:00: other spacing onboarding specialist Branch inhalationa 2019-0 Yes [id number] [facility] spacing 1-11 substitute ity of device 00:00: other spacing onboarding specialist Branch inhalationa 2019-0 Yes [id number] [facility] spacing 1-11 substitute ity of device 00:00: other spacing onboarding specialist Branch inhalationa 2019-0 Yes [id number] [facility] spacing 1-11 substitute ity of device 00:00: other spacing onboarding specialist Branch inhalationa 2019-0 Yes [id number] [facility] spacing 1-11 substitute ity of device 00:00: other spacing onboarding specialist Branch inhalationa 2019-0 Yes [id number] [facility] vers [facility] spacing 1-11 substitute ity of device 00:00: other spacing onboarding specialist Branch inhalationa 2019-0 Yes [id number] [facility] vers [facility] spacing 1-11 substitute ity of device 00:00: other spacing onboarding specialist Branch inhalationa 2019-0 Yes [id number] [facility] vers [facility] spacing 1-11 substitute ity of device 00:00: other spacing onboarding specialist Branch inhalationa 2019-0 Yes [id number] [facility] spacing 1-11 substitute ity of device 00:00: other spacing onboarding specialist Branch inhalationa 2019-0 Yes [id number] [facility] spacing 1-11 substitute ity of device 00:00: other spacing onboarding specialist Branch inhalationa 2019-0 Yes [id number] [facility] vers [facility] spacing 1-11 substitute ity of device 00:00: other spacing onboarding specialist Branch inhalationa 2019-0 Yes [id number] [facility] vers [facility] spacing 1-11 substitute ity of device 00:00: other spacing onboarding specialist Branch inhalationa 2019-0 Yes [id number] [facility] vers [facility] spacing 1-11 substitute ity of device 00:00: other spacing onboarding specialist Branch inhalationa 2019-0 Yes [id number] [facility] spacing 1-11 substitute ity of device 00:00: other spacing onboarding specialist Branch inhalationa 2019-0 Yes [id number] [facility] spacing 1-11 substitute ity of device 00:00: other spacing onboarding specialist Branch inhalationa 2019-0 Yes [id number] [facility] spacing 1-11 substitute ity of device 00:00: other spacing onboarding specialist Branch inhalationa 2019-0 Yes [id number] [facility] spacing 1-11 substitute ity of device 00:00: other spacing onboarding specialist Branch inhalationa 2019-0 Yes [id number] [facility] vers [facility] spacing 1-11 substitute ity of device 00:00: other spacing onboarding specialist Branch inhalationa 2019-0 Yes [id number] [facility] vers [facility] spacing 1-11 substitute ity of device 00:00: other spacing onboarding specialist Branch inhalationa 2019-0 Yes [id number] [facility] spacing 1-11 substitute ity of device 00:00: other spacing onboarding specialist Branch inhalationa 2019-0 Yes [id number] [facility] vers [facility] spacing 1-11 substitute ity of device 00:00: other spacing onboarding specialist Branch inhalationa 2019-0 Yes [id number] [facility] vers [facility] spacing 1-11 substitute ity of device 00:00: other spacing onboarding specialist Branch inhalationa 2019-0 Yes [id number] [facility] vers [facility] spacing 1-11 substitute ity of device 00:00: other spacing onboarding specialist Branch inhalationa 2019-0 Yes [id number] [facility] vers [facility] spacing 1-11 substitute ity of device 00:00: other spacing onboarding specialist Branch inhalationa 2019-0 Yes [id number] [facility] vers [facility] spacing 1-11 substitute ity of device 00:00: other spacing onboarding specialist Branch inhalationa 2019-0 Yes [id number] [facility] vers [facility] spacing 1-11 substitute ity of device 00:00: other spacing onboarding specialist Branch inhalationa 2019-0 Yes [id number] [facility] vers [facility] spacing 1-11 substitute ity of device 00:00: other spacing onboarding specialist Branch inhalationa 2019-0 Yes [id number] [facility] vers [facility] spacing 1-11 substitute ity of device 00:00: other spacing onboarding specialist Branch inhalationa 2019-0 Yes [id number] [facility] vers [facility] spacing 1-11 substitute ity of device 00:00: other spacing onboarding specialist Branch inhalationa 2019-0 Yes [id number] [facility] vers l spacing 1-11 substitute ity of device 00:00: other spacing onboarding specialist Branch inhalationa 2019-0 Yes [id number] [facility] vers [facility] spacing 1-11 substitute ity of device 00:00: other spacing onboarding specialist Branch inhalationa 2019-0 Yes [id number] [facility] vers [facility] spacing 1-11 substitute ity of device 00:00: other spacing onboarding specialist Branch inhalationa 2019-0 Yes [id number] [facility] vers [facility] spacing 1-11 substitute ity of device 00:00: other spacing onboarding specialist Branch inhalationa 2019-0 Yes [id number] [facility] vers [facility] spacing 1-11 substitute ity of device 00:00: other spacing onboarding specialist Branch inhalationa 2019-0 Yes [id number] [facility] vers l spacing 1-11 substitute ity of device 00:00: other spacing onboarding specialist Branch inhalationa 2019-0 Yes [id number] [facility] vers [facility] spacing 1-11 substitute ity of device 00:00: other spacing onboarding specialist Branch inhalationa 2019-0 Yes [id number] [facility] vers [facility] spacing 1-11 substitute ity of device 00:00: other spacing onboarding specialist Branch inhalationa 2019-0 Yes [id number] [facility] vers [facility] spacing 1-11 substitute ity of device 00:00: other spacing onboarding specialist Branch inhalationa 2019-0 Yes [id number] [facility] vers [facility] spacing 1-11 substitute ity of device 00:00: other spacing onboarding specialist Branch inhalationa 2019-0 Yes [id number] [facility] vers [facility] spacing 1-11 substitute ity of device 00:00: other spacing onboarding specialist Branch inhalationa 2019-0 Yes [id number] [facility] vers [facility] spacing 1-11 substitute ity of device 00:00: other spacing onboarding specialist Branch inhalationa 2019-0 Yes [id number] [facility] vers l spacing 1-11 substitute ity of device 00:00: other [facility] specialist Branch inhalationa 2019-0 Yes [id number] May [facility] vers l spacing 1-11 substitute ity of device 00:00: other spacing onboarding specialist Branch inhalationa 2019-0 Yes [id number] [facility] vers l spacing 1-11 substitute ity of device 00:00: other [facility] specialist Branch inhalationa 2019-0 Yes [id number] [facility] vers l spacing 1-11 substitute ity of device 00:00: other [facility] onboarding specialist Branch cyanocobala 2018-0 Yes 500ug Take 500 U [facility] min 2-21 mcg by ity of (VITAMIN 00:00: mouth. [place] B-12) 500 00 MD mcg tablet [facility] cyanocobala 2018-0 Yes 500ug Take 500 U nivers min 2-21 mcg by ity of (VITAMIN 00:00: mouth. [place] B-12) 500 00 MD mcg tablet [facility] metFORMIN 2015- Yes 1000mg Take 1,[address] [facility] (GLUCOPHAGE 0-02 mg by [facility] ) 1000 MG 14:59: mouth 2 Medic al tablet 12 (two) Center times daily with breakfast and dinner. metoprolol 2014-04 Yes 100mg QD Take [address] (TOPROL-XL) 0-02 [facility] 100 MG 24 14:59: mouth Medical hr tablet 12 daily. [place] aspirin 81 2014-04 Yes 81mg QD Take [address] MG chewable 0-02 by mouth [facility] tablet 14:59: daily. [address] esomeprazol 2014-04 Yes 20mg QD Take [address] [facility] (NEXIUM) 0-02 by mouth [facility] 20 MG 14:59: daily. Medical capsule 12 [place] lisinopril 2014-04 Yes 10mg QD Take [address] (PRINIVIL,Z 0-02 by mouth [facility] ESTRIL) 10 14:59: daily. Medic al MG tablet 12 [place] glipiZIDE 2014-04 Yes 10mg Take [address] (GLUCOTROL) 0-02 by mouth 2 [facility]ey kes 10 MG 14:59: (two) Medical tablet 12 times Center daily before meals. metFORMIN 2014-04 Yes 1000mg Take 1,[address] [facility] (GLUCOPHAGE 0-02 mg by [facility] ) 1000 MG 14:59: mouth 2 Medic al tablet 12 (two) Center times daily with breakfast and dinner. metoprolol 2014-04 Yes 100mg QD Take [address] (TOPROL-XL) 0-02 [facility] 100 MG 24 14:59: mouth Medical hr tablet 12 daily. [place] aspirin 81 2014-04 Yes 81mg QD Take [address] MG chewable 0-02 by mouth [facility] tablet 14:59: daily. [address] esomeprazol 2014-04 Yes 20mg QD Take [address] [facility] (NEXIUM) 0-02 by mouth [facility] 20 MG 14:59: daily. Medical capsule [address] [place] [address] lisinopril 2014-04 Yes 10mg QD Take [address] (PRINIVIL,Z 0-02 by mouth [facility] ESTRIL) 10 14:59: daily. Medic al MG tablet 12 [place] glipiZIDE 2014-04 Yes 10mg Take [address] (GLUCOTROL) 0-02 by mouth 2 Zoey kes 10 MG 14:59: (two) Medical tablet 12 times Center daily before meals. atorvastati 2014-04 Yes 10mg QD Take [address] [facility] [facility] (LIPITOR) 0-02 by mouth [facility] 10 MG 14:59: daily. Medical tablet [address] [place] [address] atorvastati 2014-04 Yes 10mg QD Take [address] [facility] [facility] (LIPITOR) 0-02 by mouth [facility] s 10 MG 14:59: daily. [address] Immunizations Ordered Filled Immunization Date Status Comments [facility] e Immunization Name Name Influenza Virus 2022-06-18 [...] 65+ Remdesivir 2022-06-11 Completed [facility] 00:00:00 [place] [facility] Remdesivir 2022-06-11 Completed [facility] 00:00:00 [place] [facility] Remdesivir 2022-06-11 Completed [facility] 00:00:00 [place] [facility] Remdesivir 2022-06-11 Completed [facility] 00:00:00 [place] [facility] Remdesivir 2022-06-11 Completed [facility] of 00:00:00 [place] [facility] Remdesivir 2022-06-11 Completed [facility] of 00:00:00 [place] [facility] Remdesivir 2022-06-11 Completed [facility] of 00:00:00 [place] [facility] Remdesivir 2022-06-11 Completed [facility] of 00:00:00 [place] [facility] Remdesivir 2022-06-11 Completed [facility] of 00:00:00 [place] [facility] Remdesivir 2022-06-11 Completed [facility] of 00:00:00 [place] [facility] Remdesivir 2022-06-11 Completed [facility] of 00:00:00 [place] [facility] Remdesivir 2022-06-11 Completed [facility] of 00:00:00 [place] [facility] Remdesivir 2022-06-11 Completed [facility] of 00:00:00 [place] [facility] Remdesivir 2022-06-11 Completed [facility] of 00:00:00 [place] [facility] Remdesivir 2022-06-11 Completed University of 00:00:00 [place] [facility] Remdesivir 2022-06-11 Completed University of 00:00:00 [place] [facility] Remdesivir 2022-06-11 Completed University of 00:00:00 [place] [facility] Remdesivir 2022-06-11 Completed University of 00:00:00 [place] [facility] Remdesivir 2022-06-11 Completed [facility] of 00:00:00 [place] [facility] Remdesivir 2022-06-11 Completed University of 00:00:00 [place] [facility] Remdesivir 2022-06-11 Completed University of 00:00:00 [place] [facility] Remdesivir 2022-06-11 Completed University of 00:00:00 [place] [facility] Remdesivir 2022-06-11 Completed University of 00:00:00 [place] [facility] Remdesivir 2022-06-11 Completed University of 00:00:00 [place] [facility] Remdesivir 2022-06-11 Completed University of 00:00:00 [place] [facility] Remdesivir 2022-06-11 Completed University of 00:00:00 [place] [facility] Remdesivir 2022-06-11 Completed University of 00:00:00 [place] [facility] Remdesivir 2022-06-11 Completed University of 00:00:00 [place] [facility] Remdesivir 2022-06-11 Completed University of 00:00:00 [place] [facility] Remdesivir 2022-06-11 Completed University of 00:00:00 [place] [facility] Remdesivir 2022-06-11 Completed University of 00:00:00 [place] [facility] Remdesivir 2022-06-11 Completed University of 00:00:00 [place] [facility] Remdesivir 2022-06-11 Completed University of 00:00:00 [place] [facility] Remdesivir 2022-06-11 Completed University of 00:00:00 [place] [facility] Remdesivir 2022-06-11 Completed University of 00:00:00 [place] [facility] Remdesivir 2022-06-10 Completed University of 00:00:00 [place] [facility] Remdesivir 2022-06-10 Completed University of 00:00:00 [place] [facility] Remdesivir 2022-06-10 Completed University of 00:00:00 [place] [facility] Remdesivir 2022-06-10 Completed University of 00:00:00 [place] [facility] Remdesivir 2022-06-10 Completed University of 00:00:00 [place] [facility] Remdesivir 2022-06-10 Completed University of 00:00:00 [place] [facility] Remdesivir 2022-06-10 Completed University of 00:00:00 [place] [facility] Remdesivir 2022-06-10 Completed University of 00:00:00 [place] [facility] Remdesivir 2022-06-10 Completed University of 00:00:00 [place] [facility] Remdesivir 2022-06-10 Completed University of 00:00:00 [place] [facility] Remdesivir 2022-06-10 Completed University of 00:00:00 [place] [facility] Remdesivir 2022-06-10 Completed University of 00:00:00 [place] [facility] Remdesivir 2022-06-10 Completed University of 00:00:00 [place] [facility] Remdesivir 2022-06-10 Completed University of 00:00:00 [place] [facility] Remdesivir 2022-06-10 Completed University of 00:00:00 [place] [facility] Remdesivir 2022-06-10 Completed University of 00:00:00 [place] [facility] Remdesivir 2022-06-10 Completed University of 00:00:00 [place] [facility] Remdesivir 2022-06-10 Completed University of 00:00:00 [place] [facility] Remdesivir 2022-06-10 Completed University of 00:00:00 [place] [facility] Remdesivir 2022-06-10 Completed University of 00:00:00 [place] [facility] Remdesivir 2022-06-10 Completed University of 00:00:00 [place] [facility] Remdesivir 2022-06-10 Completed University of 00:00:00 [place] [facility] Remdesivir 2022-06-10 Completed University of 00:00:00 [place] [facility] Remdesivir 2022-06-10 Completed University of 00:00:00 [place] [facility] Remdesivir 2022-06-10 Completed University of 00:00:00 [place] [facility] Remdesivir 2022-06-10 Completed University of 00:00:00 [place] [facility] Remdesivir 2022-06-10 Completed University of 00:00:00 [place] [facility] Remdesivir 2022-06-10 Completed University of 00:00:00 [place] [facility] Remdesivir 2022-06-10 Completed University of 00:00:00 [place] [facility] Remdesivir 2022-06-10 Completed University of 00:00:00 [place] [facility] Remdesivir 2022-06-10 Completed University of 00:00:00 [place] [facility] Remdesivir 2022-06-10 Completed University of 00:00:00 [place] [facility] Remdesivir 2022-06-10 Completed University of 00:00:00 [place] [facility] Remdesivir 2022-06-10 Completed University of 00:00:00 [place] [facility] Remdesivir 2022-06-10 Completed University of 00:00:00 [place] [facility] Remdesivir 2022-06-09 Completed University of 00:00:00 [place] [facility] Remdesivir 2022-06-09 Completed University of 00:00:00 [place] [facility] Remdesivir 2022-06-09 Completed University of 00:00:00 [place] [facility] Remdesivir 2022-06-09 Completed University of 00:00:00 [place] [facility] Remdesivir 2022-06-09 Completed University of 00:00:00 [place] [facility] Remdesivir 2022-06-09 Completed University of 00:00:00 [place] [facility] Remdesivir 2022-06-09 Completed University of 00:00:00 [place] [facility] Remdesivir 2022-06-09 Completed University of 00:00:00 [place] [facility] Remdesivir 2022-06-09 Completed University of 00:00:00 [place] [facility] Remdesivir 2022-06-09 Completed University of 00:00:00 [place] [facility] Remdesivir 2022-06-09 Completed University of 00:00:00 [place] [facility] Remdesivir 2022-06-09 Completed University of 00:00:00 [place] [facility] Remdesivir 2022-06-09 Completed University of 00:00:00 [place] [facility] Remdesivir 2022-06-09 Completed University of 00:00:00 [place] [facility] Remdesivir 2022-06-09 Completed University of 00:00:00 [place] [facility] Remdesivir 2022-06-09 Completed University of 00:00:00 [place] [facility] Remdesivir 2022-06-09 Completed University of 00:00:00 [place] [facility] Remdesivir 2022-06-09 Completed University of 00:00:00 [place] [facility] Remdesivir 2022-06-09 Completed University of 00:00:00 [facility] Remdesivir 2022-06-09 Completed [facility] 00:00:00 [facility] Remdesivir 2022-06-09 Completed [facility] 00:00:00 [facility] Remdesivir 2022-06-09 Completed [facility] 00:00:00 [facility] Remdesivir 2022-06-09 Completed [facility] 00:00:00 [facility] Remdesivir 2022-06-09 Completed [facility] 00:00:00 [facility] Remdesivir 2022-06-09 Completed [facility] 00:00:00 [facility] Remdesivir 2022-06-09 Completed [facility] 00:00:00 [facility] Remdesivir 2022-06-09 Completed [facility] 00:00:00 [facility] Remdesivir 2022-06-09 Completed [facility] 00:00:00 [facility] Remdesivir 2022-06-09 Completed [facility] 00:00:00 [facility] Remdesivir 2022-06-09 Completed [facility] 00:00:00 [facility] Remdesivir 2022-06-09 Completed [facility] 00:00:00 [facility] Remdesivir 2022-06-09 Completed [facility] 00:00:00 [facility] Remdesivir 2022-06-09 Completed [facility] 00:00:00 [facility] Remdesivir 2022-06-09 Completed [facility] 00:00:00 [facility] Remdesivir 2022-06-09 Completed [facility] 00:00:00 [facility] Remdesivir 2022-06-08 Completed [facility] 00:00:00 [facility] Remdesivir 2022-06-08 Completed [facility] 00:00:00 [facility] Remdesivir 2022-06-08 Completed [facility] 00:00:00 [facility] Remdesivir 2022-06-08 Completed [facility] 00:00:00 [facility] Remdesivir 2022-06-08 Completed [facility] 00:00:00 [facility] Remdesivir 2022-06-08 Completed [facility] 00:00:00 [facility] Remdesivir 2022-06-08 Completed [facility] 00:00:00 [facility] Remdesivir 2022-06-08 Completed [facility] 00:00:00 [facility] Remdesivir 2022-06-08 Completed [facility] 00:00:00 [facility] Remdesivir 2022-06-08 Completed [facility] 00:00:00 [facility] Remdesivir 2022-06-08 Completed [facility] 00:00:00 [facility] Remdesivir 2022-06-08 Completed [facility] 00:00:00 [facility] Remdesivir 2022-06-08 Completed [facility] 00:00:00 [facility] Remdesivir 2022-06-08 Completed [facility] 00:00:00 [facility] Remdesivir 2022-06-08 Completed [facility] 00:00:00 [facility] Remdesivir 2022-06-08 Completed [facility] 00:00:00 [facility] Remdesivir 2022-06-08 Completed [facility] 00:00:00 [facility] Remdesivir 2022-06-08 Completed [facility] 00:00:00 [facility] Remdesivir 2022-06-08 Completed [facility] 00:00:00 [facility] Remdesivir 2022-06-08 Completed [facility] 00:00:00 [facility] Remdesivir 2022-06-08 Completed [facility] 00:00:00 [facility] Remdesivir 2022-06-08 Completed [facility] 00:00:00 [facility] Remdesivir 2022-06-08 Completed [facility] 00:00:00 [facility] Remdesivir 2022-06-08 Completed [facility] 00:00:00 [facility] Remdesivir 2022-06-08 Completed [facility] 00:00:00 [facility] Remdesivir 2022-06-08 Completed [facility] 00:00:00 [facility] Remdesivir 2022-06-08 Completed [facility] 00:00:00 [facility] Remdesivir 2022-06-08 Completed [facility] 00:00:00 [facility] Remdesivir 2022-06-08 Completed [facility] 00:00:00 [facility] Remdesivir 2022-06-08 Completed [facility] 00:00:00 [facility] Remdesivir 2022-06-08 Completed [facility] 00:00:00 [facility] Remdesivir 2022-06-08 Completed [facility] 00:00:00 [facility] Remdesivir 2022-06-08 Completed [facility] 00:00:00 [facility] Remdesivir 2022-06-08 Completed [facility] 00:00:00 [facility] Remdesivir 2022-06-08 Completed [facility] 00:00:00 [facility] Remdesivir 2022-06-07 Completed [facility] 00:00:00 [facility] Remdesivir 2022-06-07 Completed [facility] 00:00:00 [facility] Remdesivir 2022-06-07 Completed [facility] 00:00:00 [facility] Remdesivir 2022-06-07 Completed [facility] 00:00:00 [facility] Remdesivir 2022-06-07 Completed [facility] 00:00:00 [facility] Remdesivir 2022-06-07 Completed [facility] 00:00:00 [facility] Remdesivir 2022-06-07 Completed [facility] 00:00:00 [facility] Remdesivir 2022-06-07 Completed [facility] 00:00:00 [facility] Remdesivir 2022-06-07 Completed [facility] 00:00:00 [facility] Remdesivir 2022-06-07 Completed [facility] 00:00:00 [facility] Remdesivir 2022-06-07 Completed [facility] 00:00:00 [facility] Remdesivir 2022-06-07 Completed [facility] 00:00:00 [facility] Remdesivir 2022-06-07 Completed [facility] 00:00:00 [facility] Remdesivir 2022-06-07 Completed [facility] 00:00:00 [facility] Remdesivir 2022-06-07 Completed [facility] 00:00:00 [facility] Remdesivir 2022-06-07 Completed [facility] 00:00:00 [facility] Remdesivir 2022-06-07 Completed [facility] 00:00:00 [facility] Remdesivir 2022-06-07 Completed [facility] 00:00:00 [facility] Remdesivir 2022-06-07 Completed [facility] 00:00:00 [facility] Remdesivir 2022-06-07 Completed [facility] 00:00:00 [facility] Remdesivir 2022-06-07 Completed [facility] 00:00:00 [facility] Remdesivir 2022-06-07 Completed [facility] 00:00:00 [facility] Remdesivir 2022-06-07 Completed [facility] 00:00:00 [facility] Remdesivir 2022-06-07 Completed [facility] 00:00:00 [facility] Remdesivir 2022-06-07 Completed [facility] 00:00:00 [facility] Remdesivir 2022-06-07 Completed [facility] 00:00:00 [facility] Remdesivir 2022-06-07 Completed [facility] 00:00:00 [facility] Remdesivir 2022-06-07 Completed [facility] 00:00:00 [facility] Remdesivir 2022-06-07 Completed [facility] 00:00:00 [facility] Remdesivir 2022-06-07 Completed [facility] 00:00:00 [facility] Remdesivir 2022-06-07 Completed [facility] 00:00:00 [facility] Remdesivir 2022-06-07 Completed [facility] 00:00:00 [facility] Remdesivir 2022-06-07 Completed [facility] 00:00:00 [facility] Remdesivir 2022-06-07 Completed [facility] 00:00:00 [facility] Remdesivir 2022-06-07 Completed [facility] 00:00:00 [facility] Pneumococcal 20 2021-11-26 Completed Universit y of [...] [facility]it y of Conjugate, PCV20 00:00:00 [facility] (Prevnar 20) [facility] Pneumococcal 20 2021-11-26 Completed [facility] Conjugate, PCV20 00:00:00 [facility] (Prevnar 20) [facility] Pneumococcal 20 2021-11-26 Completed [facility] Conjugate, PCV20 00:00:00 [facility] (Prevnar 20) [facility] Pneumococcal 20 2021-11-26 Completed [facility] Conjugate, PCV20 00:00:00 [place] [facility] (Prevnar 20) [facility] Pneumococcal 20 2021-11-26 Completed [facility] Conjugate, PCV20 00:00:00 [place] [facility] (Prevnar 20) [facility] Pneumococcal 20 2021-11-26 Completed [facility] of Conjugate, PCV20 00:00:00 [place] [facility] (Prevnar 20) [facility] Pneumococcal 20 2021-11-26 Completed [facility] Conjugate, PCV20 00:00:00 [place] [facility] (Prevnar 20) [facility] Pneumococcal 20 2021-11-26 Completed [facility] Conjugate, PCV20 00:00:00 [facility] (Prevnar 20) [facility] Pneumococcal 20 2021-11-26 Completed [facility] Conjugate, PCV20 00:00:00 [facility] (Prevnar 20) [facility] Pneumococcal 20 2021-11-26 Completed [facility] of Conjugate, PCV20 00:00:00 [facility] (Prevnar 20) [facility] Pneumococcal 20 2021-11-26 Completed [facility] of Conjugate, PCV20 00:00:00 [facility] (Prevnar 20) [facility] Pneumococcal 20 2021-11-26 Completed [facility] Conjugate, PCV20 00:00:00 [facility] (Prevnar 20) [facility] Pneumococcal 20 2021-11-26 Completed [facility] Conjugate, PCV20 00:00:00 [facility] (Prevnar 20) [facility] Pneumococcal 20 2021-11-26 Completed [facility] of Conjugate, PCV20 00:00:00 [facility] (Prevnar 20) [facility] Pneumococcal 20 2021-11-26 Completed [facility] of Conjugate, PCV20 00:00:00 [facility] (Prevnar 20) [facility] Pneumococcal 20 2021-11-26 Completed [facility] of Conjugate, PCV20 00:00:00 [facility] (Prevnar 20) [facility] Pneumococcal 20 2021-11-26 [...] [facility] y of Conjugate, PCV20 00:00:00 [facility] (Prevnar 20) [facility] Pneumococcal 20 2021-11-26 Completed [facility] of Conjugate, PCV20 00:00:00 [facility] (Prevnar 20) [facility] Pneumococcal 20 2021-11-26 Completed [facility] of Conjugate, PCV20 00:00:00 [facility] (Prevnar 20) [facility] Pneumococcal 20 2021-11-26 Completed [facility] Conjugate, PCV20 00:00:00 [place] [facility] (Prevnar 20) [facility] Pneumococcal 20 2021-11-26 Completed [facility] of Conjugate, PCV20 00:00:00 [facility] dical (Prevnar 20) Branch Pneumococcal 20 2021-11-26 Completed [facility] of Conjugate, PCV20 00:00:00 [facility] (Prevnar 20) [facility] Pneumococcal 20 2021-11-26 Completed [facility] of Conjugate, PCV20 00:00:00 [facility] (Prevnar 20) [facility] Pneumococcal 20 2021-11-26 Completed [facility] of Conjugate, PCV20 00:00:00 [facility] (Prevnar 20) [facility] Pneumococcal 20 2021-11-26 Completed [facility] of Conjugate, PCV20 00:00:00 [facility] (Prevnar 20) [facility] Pneumococcal 20 2021-11-26 Completed [facility] of Conjugate, PCV20 00:00:00 [facility] (Prevnar 20) [facility] Pneumococcal 20 2021-11-26 [...] Completed [facility] Conjugate, PCV20 00:00:00 [facility] (Pre[facility]ar 20) [facility] Pneumococcal 20 2021-11-26 Completed [facility] Conjugate, PCV20 00:00:00 [facility] (Prevnar 20) Branch Pneumococcal 20 2021-11-26 Completed [facility] of Conjugate, PCV20 00:00:00 [facility] (Prevnar 20) [facility] Pneumococcal 20 2021-11-26 Completed [facility] of Conjugate, PCV20 00:00:00 [facility] (Prevnar 20) [facility] Pneumococcal 20 2021-11-26 Completed [facility] of Conjugate, PCV20 00:00:00 [facility] dical (Prevnar 20) Branch Pneumococcal 20 2021-11-26 Completed [facility] y of Conjugate, PCV20 00:00:00 [facility] dical (Prevnar 20) Branch Pneumococcal 20 2021-11-26 Completed [facility] of Conjugate, PCV20 00:00:00 [facility] dical (Prevnar 20) Branch Pneumococcal 20 2021-11-26 Completed [facility] of Conjugate, PCV20 00:00:00 [facility] dical (Prevnar 20) Branch Pneumococcal 20 2021-11-26 Completed [facility] of Conjugate, PCV20 00:00:00 [facility] dical (Prevnar 20) Branch Pneumococcal 20 2021-11-26 Completed [facility] of Conjugate, PCV20 00:00:00 [facility] dical (Prevnar 20) Branch Pneumococcal 20 2021-11-26 Completed [facility] of Conjugate, PCV20 00:00:00 [facility] (Pre[facility]ar 20) [facility] Pneumococcal 20 2021-11-26 Completed [facility] of Conjugate, PCV20 00:00:00 [facility] (Prevnar 20) [facility] Pneumococcal 20 2021-11-26 Completed [facility] of Conjugate, PCV20 00:00:00 [facility] dical (Prevnar 20) Branch Pneumococcal 20 2021-11-26 [...] [facility] y of Conjugate, PCV20 00:00:00 [facility] (Prevnar 20) [facility] Pneumococcal 20 2021-11-26 Completed [facility] of Conjugate, PCV20 00:00:00 [facility] (Prevnar 20) Branch Pneumococcal 20 2021-11-26 Completed [facility] of Conjugate, PCV20 00:00:00 [facility] dical (Prevnar 20) Branch Pneumococcal 20 2021-11-26 Completed [facility] of Conjugate, PCV20 00:00:00 [facility] dical (Prevnar 20) Branch Influenza Virus 2021-04-02 [...] YRS 00:00:00 [facility] VACCINE [facility] Influenza High Dose 2020-01-17 Completed [facility] 00:00:00 [facility] Influenza High Dose 2020-01-17 Completed [facility] 00:00:00 [facility] Influenza High Dose 2020-01-17 Completed [facility] 00:00:00 [facility] Influenza High Dose 2020-01-17 Completed [facility] 00:00:00 [facility] Influenza High Dose 2020-01-17 Completed [facility] 00:00:00 [facility] Influenza High Dose 2020-01-17 Completed [facility] 00:00:00 [facility] Influenza High Dose 2020-01-17 Completed [facility] 00:00:00 [facility] Influenza High Dose 2020-01-17 Completed [facility] 00:00:00 [facility] Influenza High Dose 2020-01-17 Completed [facility] 00:00:00 [facility] Influenza High Dose 2020-01-17 Completed [facility] 00:00:00 [facility] Influenza High Dose 2020-01-17 Completed [facility] 00:00:00 [facility] Influenza High Dose 2020-01-17 Completed [facility] 00:00:00 [facility] Influenza High Dose 2020-01-17 Completed [facility] 00:00:00 [facility] Influenza High Dose 2020-01-17 Completed [facility] 00:00:00 [facility] Influenza High Dose 2020-01-17 Completed [facility] 00:00:00 [facility] Influenza High Dose 2020-01-17 Completed [facility] 00:00:00 [facility] Influenza High Dose 2020-01-17 Completed [facility] 00:00:00 [facility] Influenza High Dose 2020-01-17 Completed [facility] 00:00:00 [facility] Influenza High Dose 2020-01-17 Completed [facility] 00:00:00 [facility] Influenza High Dose 2020-01-17 Completed [facility] 00:00:00 [facility] Influenza High Dose 2020-01-17 Completed [facility] 00:00:00 [facility] Influenza High Dose 2020-01-17 Completed [facility] 00:00:00 [facility] Influenza High Dose 2020-01-17 Completed [facility] 00:00:00 [facility] Influenza High Dose 2020-01-17 Completed [facility] 00:00:00 [facility] Influenza High Dose 2020-01-17 Completed [facility] 00:00:00 [facility] Influenza High Dose 2020-01-17 Completed [facility] 00:00:00 [facility] Influenza High Dose 2020-01-17 Completed [facility] 00:00:00 [facility] Influenza High Dose 2020-01-17 Completed [facility] 00:00:00 [facility] Influenza High Dose 2020-01-17 Completed [facility] 00:00:00 [facility] Influenza High Dose 2020-01-17 Completed [facility] 00:00:00 [facility] Influenza High Dose 2020-01-17 Completed [facility] 00:00:00 [facility] Influenza High Dose 2020-01-17 Completed [facility] 00:00:00 [facility] Influenza High Dose 2020-01-17 Completed [facility] 00:00:00 [facility] Influenza High Dose 2020-01-17 Completed [facility] 00:00:00 [facility] Influenza High Dose 2020-01-17 Completed [facility] 00:00:00 [facility] Influenza High Dose 2020-01-17 Completed [facility] 00:00:00 [facility] Influenza High Dose 2020-01-17 Completed [facility] 00:00:00 [facility] Influenza High Dose 2020-01-17 Completed [facility] 00:00:00 [facility] Influenza High Dose 2020-01-17 Completed [facility] 00:00:00 [facility] Influenza High Dose 2020-01-17 Completed [facility] 00:00:00 [facility] Influenza High Dose 2020-01-17 Completed [facility] 00:00:00 [facility] Influenza High Dose 2020-01-17 Completed [facility] 00:00:00 [facility] Influenza High Dose 2020-01-17 Completed [facility] 00:00:00 [facility] Influenza High Dose 2020-01-17 Completed [facility] 00:00:00 [facility] Influenza High Dose 2020-01-17 Completed [facility] 00:00:00 [facility] Influenza High Dose 2020-01-17 Completed [facility] 00:00:00 [facility] Influenza High Dose 2020-01-17 Completed [facility] 00:00:00 [facility] Influenza High Dose 2020-01-17 Completed [facility] 00:00:00 [facility] Influenza High Dose 2020-01-17 Completed [facility] 00:00:00 [facility] Influenza High Dose 2020-01-17 Completed [facility] 00:00:00 [facility] Influenza High Dose 2020-01-17 Completed [facility] 00:00:00 [facility] Influenza High Dose 2020-01-17 Completed [facility] 00:00:00 [facility] Influenza High Dose 2020-01-17 Completed [facility] 00:00:00 [facility] Influenza High Dose 2020-01-17 Completed [facility] 00:00:00 [facility] Influenza High Dose 2020-01-17 Completed [facility] 00:00:00 [facility] Influenza High Dose 2020-01-17 Completed [facility] 00:00:00 [facility] Influenza High Dose 2020-01-17 Completed [facility] 00:00:00 [facility] Influenza High Dose 2020-01-17 Completed [facility] 00:00:00 [facility] Influenza High Dose 2020-01-17 Completed [facility] 00:00:00 [facility] Influenza High Dose 2020-01-17 Completed [facility] 00:00:00 [facility] Influenza High Dose 2020-01-17 Completed [facility] 00:00:00 [facility] Influenza High Dose 2020-01-17 Completed [facility] 00:00:00 [facility] Influenza High Dose 2020-01-17 Completed [facility] 00:00:00 [facility] Influenza High Dose 2020-01-17 Completed [facility] 00:00:00 [facility] Influenza High Dose 2020-01-17 Completed [facility] 00:00:00 [facility] Influenza High Dose 2020-01-17 Completed [facility] 00:00:00 [facility] Influenza High Dose 2020-01-17 Completed [facility] 00:00:00 [facility] Influenza High Dose 2020-01-17 Completed [facility] 00:00:00 [facility] Influenza High Dose 2020-01-17 Completed [facility] 00:00:00 [facility] Influenza High Dose 2020-01-17 Completed [facility] 00:00:00 [facility] Influenza High Dose 2020-01-17 Completed [facility] 00:00:00 [facility] Influenza High Dose 2020-01-17 Completed [facility] 00:00:00 [facility] Influenza High Dose 2020-01-17 Completed [facility] 00:00:00 [facility] Influenza High Dose 2020-01-17 Completed [facility] 00:00:00 [facility] Influenza High Dose 2020-01-17 Completed [facility] 00:00:00 [facility] Influenza High Dose 2020-01-17 Completed [facility] 00:00:00 [facility] Influenza High Dose 2020-01-17 Completed [facility] 00:00:00 [facility] Influenza High Dose 2020-01-17 Completed [facility] 00:00:00 [facility] Influenza High Dose 2020-01-17 Completed [facility] 00:00:00 [facility] Influenza High Dose 2020-01-17 Completed [facility] 00:00:00 [facility] Influenza High Dose 2020-01-17 Completed [facility] 00:00:00 [facility] Influenza High Dose 2020-01-17 Completed [facility] 00:00:00 [facility] Influenza High Dose 2020-01-17 Completed [facility] 00:00:00 [facility] Influenza High Dose 2020-01-17 Completed [facility] 00:00:00 [facility] Influenza High Dose 2020-01-17 Completed [facility] 00:00:00 [facility] Influenza High Dose 2020-01-17 Completed [facility] 00:00:00 [facility] Influenza High Dose 2020-01-17 Completed [facility] 00:00:00 [facility] Influenza High Dose 2020-01-17 Completed [facility] 00:00:00 [facility] Influenza High Dose 2020-01-17 Completed [facility] 00:00:00 [facility] Influenza High Dose 2020-01-17 Completed [facility] 00:00:00 [facility] Influenza High Dose 2020-01-17 Completed [facility] 00:00:00 [facility] Influenza High Dose 2020-01-17 Completed [facility] 00:00:00 [facility] Influenza High Dose 2020-01-17 Completed [facility] 00:00:00 [facility] Influenza High Dose 2020-01-17 Completed [facility] 00:00:00 [facility] Influenza High Dose 2020-01-17 Completed [facility] 00:00:00 [facility] Influenza High Dose 2020-01-17 Completed [facility] 00:00:00 [facility] Influenza High Dose 2020-01-17 Completed [facility] 00:00:00 [facility] Influenza Virus 2019-02-12 Completed [facility] of [...] y of Vaccine [facility] .5 mL 00:00:00 [facility] Influenza Virus [...] y of Vaccine [facility] .5 mL 00:00:00 [facility] Influenza Virus [...] y of Vaccine [facility] .5 mL 00:00:00 [facility] Influenza Virus 2019-02-12 Completed [facility] Vaccine [facility] .5 mL 00:00:00 [facility] Influenza Virus 2019-02-12 Completed [facility] Vaccine [facility] .5 mL 00:00:00 [facility] Influenza Virus 2019-02-12 Completed [facility] Vaccine [facility] .5 mL 00:00:00 [facility] Influenza Virus 2019-02-12 Completed [facility] Vaccine [facility] .5 mL 00:00:00 [facility] Influenza Virus 2019-02-12 Completed [facility] Vaccine [facility] .5 mL 00:00:00 [facility] Influenza Virus [...] y of Vaccine [facility] .5 mL 00:00:00 [facility] Influenza Virus 2019-02-12 Completed [facility] Vaccine [facility] .5 mL 00:00:00 [facility] Influenza Virus 2019-02-12 Completed [facility] Vaccine [facility] .5 mL 00:00:00 [facility] Influenza Virus [...] y of Vaccine [facility] .5 mL 00:00:00 [facility] Influenza Virus 2019-02-12 Completed [facility] Vaccine Quad .5 mL 00:00:00 [facility] Influenza Virus 2019-02-12 Completed [facility]ine [facility] .5 mL 00:00:00 [facility] Influenza Virus 2019-02-12 Completed [facility] Vaccine Quad .5 mL 00:00:00 [facility] Influenza Virus 2019-02-12 Completed [facility] Vaccine [facility] .5 mL 00:00:00 [facility] 6[facility] Influenza Virus [...] y of Vaccine Quad .5 mL 00:00:00 [facility] Influenza Virus 2019-02-12 Completed [facility] Vaccine [facility] .5 mL 00:00:00 [facility] Influenza Virus 2019-02-12 Completed [facility] Vaccine Quad .5 mL 00:00:00 [facility] Influenza Virus [...] y of Vaccine Quad .5 mL 00:00:00 [facility] Influenza Virus [...] y of Vaccine Quad .5 mL 00:00:00 [facility] Pneumococcal 2018-02-07 Completed [facility] f Polysaccharide, 00:00:00 [facility] PPSV23 (PNEUMOVAX) [facility] Influenza Virus 2018-02-07 Completed [facility] Vaccine [facility] .5 mL 00:00:00 [facility] Pneumococcal 2018-02-07 Completed [facility] f Polysaccharide, 00:00:00 [facility] PPSV23 (PNEUMOVAX) [facility] Influenza Virus 2018-02-07 Completed [facility] Vaccine Quad .5 mL 00:00:00 [facility] 6[facility] Pneumococcal 2018-02-07 Completed [facility] f Polysaccharide, 00:00:00 [facility] PPSV23 (PNEUMOVAX) [facility] Influenza Virus 2018-02-07 Completed [facility] Vaccine [facility] .5 mL 00:00:00 [facility] 6[facility] Pneumococcal 2018-02-07 Completed [facility] f Polysaccharide, 00:00:00 [facility] PPSV23 (PNEUMOVAX) [facility] Influenza Virus 2018-02-07 Completed [facility] Vaccine [facility] .5 mL 00:00:00 [facility] 6[facility] Pneumococcal 2018-02-07 Completed [facility] f Polysaccharide, 00:00:00 [facility] PPSV23 (PNEUMOVAX) [facility] Influenza Virus 2018-02-07 Completed [facility] Vaccine [facility] .5 mL 00:00:00 [facility] Pneumococcal 2018-02-07 Completed [facility] f Polysaccharide, 00:00:00 [facility] PPSV23 (PNEUMOVAX) [facility] Influenza Virus 2018-02-07 Completed [facility] Vaccine [facility] .5 mL 00:00:00 [facility] Pneumococcal 2018-02-07 Completed [facility] f Polysaccharide, 00:00:00 [facility] PPSV23 (PNEUMOVAX) [facility] Influenza Virus 2018-02-07 Completed [facility] Vaccine [facility] .5 mL 00:00:00 [facility] 6[facility] Pneumococcal 2018-02-07 [...] 2018-02-07 Completed [facility] f Polysaccharide, 00:00:00 [facility] PPSV23 (PNEUMOVAX) Branch Influenza Virus [...] y of Vaccine Quad .5 mL 00:00:00 [facility] 6[facility] MO [facility] Pneumococcal 2018-02-07 Completed [facility] f Polysaccharide, 00:00:00 [facility] PPSV23 (PNEUMOVAX) [facility] Influenza Virus 2018-02-07 Completed [facility] Vaccine [facility] .5 mL 00:00:00 [facility] 6[facility] MO [facility] Pneumococcal 2018-02-07 Completed [facility] f Polysaccharide, 00:00:00 [facility] PPSV23 (PNEUMOVAX) Branch Influenza Virus 2018-02-07 Completed [facility] Vaccine [facility] .5 mL 00:00:00 [facility] 6[facility] MO [facility] Pneumococcal 2018-02-07 Completed [facility] f Polysaccharide, 00:00:00 [facility] PPSV23 (PNEUMOVAX) Branch Influenza Virus 2018-02-07 Completed [facility] Vaccine [facility] .5 mL 00:00:00 [facility] 6[facility] MO [facility] Pneumococcal 2018-02-07 Completed [facility] o f Polysaccharide, 00:00:00 [facility] PPSV23 (PNEUMOVAX) Branch Influenza Virus 2018-02-07 Completed [facility] Vaccine [facility] .5 mL 00:00:00 [facility] 6[facility] MO [facility] Pneumococcal 2018-02-07 Completed [facility] o f Polysaccharide, 00:00:00 [facility] PPSV23 (PNEUMOVAX) Branch Influenza Virus 2018-02-07 Completed [facility] Vaccine Quad .5 mL 00:00:00 [facility] 6[facility] MO [facility] Pneumococcal 2018-02-07 Completed [facility] f Polysaccharide, 00:00:00 [facility] PPSV23 (PNEUMOVAX) Branch Influenza Virus 2018-02-07 Completed [facility] Vaccine [facility] .5 mL 00:00:00 [facility] 6[facility] MO [facility] Pneumococcal 2018-02-07 Completed [facility] o f Polysaccharide, 00:00:00 [facility] PPSV23 (PNEUMOVAX) Branch Influenza Virus 2018-02-07 Completed [facility] Vaccine Quad .5 mL 00:00:00 [facility] 6[facility] Pneumococcal 2018-02-07 Completed [facility] o f Polysaccharide, 00:00:00 [facility] PPSV23 (PNEUMOVAX) Branch Influenza Virus 2018-02-07 Completed [facility] Vaccine Quad .5 mL 00:00:00 [facility] MO [facility] Pneumococcal 2018-02-07 [...] y of Vaccine Quad .5 mL 00:00:00 [facility] 6[facility] MO [facility] Pneumococcal 2018-02-07 Completed [facility] o f Polysaccharide, 00:00:00 [facility] PPSV23 (PNEUMOVAX) Branch Influenza Virus 2018-02-07 Completed [facility] Vaccine Quad .5 mL 00:00:00 [facility] Pneumococcal 2018-02-07 [...] y of Vaccine Quad .5 mL 00:00:00 [facility] 6[facility] MO [facility] Pneumococcal 2018-02-07 Completed [facility] o f Polysaccharide, 00:00:00 [facility] PPSV23 (PNEUMOVAX) Branch Influenza Virus 2018-02-07 Completed [facility] Vaccine [facility] .5 mL 00:00:00 [facility] 6[facility] MO [facility] Pneumococcal 2018-02-07 Completed [facility] o f Polysaccharide, 00:00:00 [facility] PPSV23 (PNEUMOVAX) Branch Influenza Virus 2018-02-07 Completed [facility] Vaccine Quad .5 mL 00:00:00 [facility] 6[facility] MO [facility] Pneumococcal 2018-02-07 Completed [facility] f Polysaccharide, 00:00:00 [facility] PPSV23 (PNEUMOVAX) Branch Influenza Virus 2018-02-07 Completed [facility] Vaccine Quad .5 mL 00:00:00 [facility] 6[facility] Pneumococcal 2018-02-07 Completed [facility] o f Polysaccharide, 00:00:00 [facility] PPSV23 (PNEUMOVAX) Branch Influenza Virus 2018-02-07 Completed [facility] Vaccine Quad .5 mL 00:00:00 [facility] 6+ MO Branch TDAP 2015-04-14 Completed [facility] 00:00:00 [facility] TDAP 2015-04-14 Completed [facility] 00:00:00 [facility] TDAP 2015-04-14 Completed [facility] of 00:00:00 [facility] TDAP 2015-04-14 Completed [facility] of 00:00:00 [facility] TDAP 2015-04-14 Completed [facility] 00:00:00 [facility] TDAP 2015-04-14 Completed [facility] 00:00:00 [facility] TDAP 2015-04-14 Completed [facility] of 00:00:00 [facility] TDAP 2015-04-14 Completed [facility] of 00:00:00 [facility] TDAP 2015-04-14 Completed [facility] of 00:00:00 [facility] TDAP 2015-04-14 Completed [facility] of 00:00:00 [facility] TDAP 2015-04-14 Completed [facility] of 00:00:00 [facility] TDAP 2015-04-14 Completed [facility] of 00:00:00 [facility] TDAP 2015-04-14 Completed [facility] of 00:00:00 [facility] TDAP 2015-04-14 Completed [facility] of 00:00:00 [facility] TDAP 2015-04-14 Completed [facility] 00:00:00 [facility] TDAP 2015-04-14 Completed [facility] of 00:00:00 [facility] TDAP 2015-04-14 Completed [facility] of 00:00:00 [facility] TDAP 2015-04-14 Completed [facility] of 00:00:00 [facility] TDAP 2015-04-14 Completed [facility] of 00:00:00 [facility] TDAP 2015-04-14 Completed [facility] of 00:00:00 [facility] TDAP 2015-04-14 Completed [facility] of 00:00:00 [facility] TDAP 2015-04-14 Completed [facility] of 00:00:00 [facility] TDAP 2015-04-14 Completed [facility] of 00:00:00 [facility] TDAP 2015-04-14 Completed [facility] of 00:00:00 [facility] TDAP 2015-04-14 Completed [facility] of 00:00:00 [facility] TDAP 2015-04-14 Completed [facility] of 00:00:00 [facility] TDAP 2015-04-14 Completed [facility] of 00:00:00 [facility] TDAP 2015-04-14 Completed [facility] of 00:00:00 [facility] TDAP 2015-04-14 Completed [facility] of 00:00:00 [facility] TDAP 2015-04-14 Completed [facility] of 00:00:00 [facility] TDAP 2015-04-14 Completed [facility] of 00:00:00 [facility] TDAP 2015-04-14 Completed [facility] of 00:00:00 [facility] TDAP 2015-04-14 Completed [facility] of 00:00:00 [facility] TDAP 2015-04-14 Completed [facility] of 00:00:00 [facility] TDAP 2015-04-14 Completed [facility] of 00:00:00 [facility] TDAP 2015-04-14 Completed [facility] of 00:00:00 [facility] TDAP 2015-04-14 Completed [facility] of 00:00:00 [facility] TDAP 2015-04-14 Completed [facility] of 00:00:00 [facility] TDAP 2015-04-14 Completed [facility] of 00:00:00 [facility] TDAP 2015-04-14 Completed [facility] of 00:00:00 [facility] TDAP 2015-04-14 Completed [facility] of 00:00:00 [facility] TDAP 2015-04-14 Completed [facility] of 00:00:00 [facility] TDAP 2015-04-14 Completed [facility] of 00:00:00 [facility] TDAP 2015-04-14 Completed [facility] of 00:00:00 [facility] TDAP 2015-04-14 Completed [facility] of 00:00:00 [facility] TDAP 2015-04-14 Completed [facility] of 00:00:00 [facility] TDAP 2015-04-14 Completed [facility] of 00:00:00 [facility] TDAP 2015-04-14 Completed [facility] of 00:00:00 [facility] TDAP 2015-04-14 Completed [facility] of 00:00:00 [facility] TDAP 2015-04-14 Completed [facility] of 00:00:00 [facility] TDAP 2015-04-14 Completed [facility] of 00:00:00 [facility] TDAP 2015-04-14 Completed [facility] of 00:00:00 [facility] TDAP 2015-04-14 Completed [facility] of 00:00:00 [facility] TDAP 2015-04-14 Completed [facility] of 00:00:00 [facility] TDAP 2015-04-14 Completed [facility] of 00:00:00 [facility] TDAP 2015-04-14 Completed [facility] of 00:00:00 [facility] TDAP 2015-04-14 Completed [facility] of 00:00:00 [facility] TDAP 2015-04-14 Completed [facility] of 00:00:00 [facility] TDAP 2015-04-14 Completed [facility] of 00:00:00 [facility] TDAP 2015-04-14 Completed [facility] of 00:00:00 [facility] TDAP 2015-04-14 Completed [facility] of 00:00:00 [facility] TDAP 2015-04-14 Completed [facility] of 00:00:00 [facility] TDAP 2015-04-14 Completed [facility] of 00:00:00 [facility] TDAP 2015-04-14 Completed [facility] of 00:00:00 [facility] TDAP 2015-04-14 Completed [facility] of 00:00:00 [facility] TDAP 2015-04-14 Completed [facility] of 00:00:00 [facility] TDAP 2015-04-14 Completed [facility] of 00:00:00 [facility] TDAP 2015-04-14 Completed [facility] of 00:00:00 [facility] TDAP 2015-04-14 Completed [facility] of 00:00:00 [facility] TDAP 2015-04-14 Completed [facility] of 00:00:00 [facility] TDAP 2015-04-14 Completed [facility] of 00:00:00 [facility] TDAP 2015-04-14 Completed [facility] of 00:00:00 [facility] TDAP 2015-04-14 Completed [facility] of 00:00:00 [facility] TDAP 2015-04-14 Completed [facility] of 00:00:00 [facility] TDAP 2015-04-14 Completed [facility] of 00:00:00 [facility] TDAP 2015-04-14 Completed [facility] of 00:00:00 [facility] TDAP 2015-04-14 Completed [facility] of 00:00:00 [facility] TDAP 2015-04-14 Completed [facility] of 00:00:00 [facility] TDAP 2015-04-14 Completed [facility] of 00:00:00 [facility] TDAP 2015-04-14 Completed [facility] of 00:00:00 [facility] TDAP 2015-04-14 Completed [facility] of 00:00:00 [facility] TDAP 2015-04-14 Completed [facility] of 00:00:00 [facility] TDAP 2015-04-14 Completed [facility] of 00:00:00 [facility] TDAP 2015-04-14 Completed [facility] of 00:00:00 [facility] TDAP 2015-04-14 Completed [facility] of 00:00:00 [facility] TDAP 2015-04-14 Completed [facility] of 00:00:00 [facility] TDAP 2015-04-14 Completed [facility] of 00:00:00 [facility] TDAP 2015-04-14 Completed [facility] of 00:00:00 [facility] TDAP 2015-04-14 Completed [facility] of 00:00:00 [facility] TDAP 2015-04-14 Completed [facility] of 00:00:00 [facility] TDAP 2015-04-14 Completed [facility] of 00:00:00 [facility] TDAP 2015-04-14 Completed [facility] of 00:00:00 [facility] TDAP 2015-04-14 Completed [facility] of 00:00:00 [facility] TDAP 2015-04-14 Completed [facility] of 00:00:00 [facility] TDAP 2015-04-14 Completed [facility] of 00:00:00 [facility] TDAP 2015-04-14 Completed [facility] of 00:00:00 [facility] TDAP 2015-04-14 Completed [facility] of 00:00:00 [facility] Vital Signs Vital Name Observation Time Observation Value Comments Source Systolic blood 2022-08-21 123 mm[Hg] University of pressure 17:55: [facility] Diastolic blood 2022-08-21 87 mm[Hg] University o f pressure 17:55:00 [facility] Heart rate 2022-08-21 94 /min University of 17:55:00 [facility] Body temperature 2022-08-21 36.17 Jo University of 17:55:00 [facility] Respiratory rate 2022-08-21 20 /min University of 17:55:00 [facility] Body height 2022-08-21 170.2 cm University of 17:55:00 [facility] Body weight 2022-08-21 85.004 kg University of 17::00 [facility] BMI 2022-08-21 29.35 kg/m2 University of 17::00 [facility] Oxygen saturation 2022-08-21 96 /min [facility] in Arterial blood 17:55:00 [facility] by Pulse oximetry Branch Systolic blood 2022-08-09 125 mm[Hg] University of pressure 15:10:00 [facility] Diastolic blood 2022-08-09 80 mm[Hg] University o f pressure 15:10:00 [facility] Heart rate 2022-08-09 92 /min University of 15:10:00 [facility] Body height 2022-08-09 170.2 cm University of 15:10:00 [facility] Body weight 2022-08-09 85.049 kg University of 15:10:00 [facility] BMI 2022-08-09 29.37 kg/m2 University of 15:10:00 [facility] Oxygen saturation 2022-08-09 95 /min University of in Arterial blood 15:10:00 [facility] akash by Pulse oximetry Branch Systolic blood 2022-07-11 131 mm[Hg] University of pressure 19:29:00 [facility] Diastolic blood 2022-07-11 84 mm[Hg] University o f pressure 19:29:00 [facility] Heart rate 2022-07-11 96 /min University of 19::00 [facility] Body temperature 2022-07-11 37.67 Jo University of 19:29:00 [facility] Body height 2022-07-11 170.2 cm University of 19:29:00 [facility] Body weight 2022-07-11 85.276 kg University of 19:29:00 [facility] BMI 2022-07-11 29.44 kg/m2 University of 19:29:00 [facility] Oxygen saturation 2022-07-11 95 /min [facility] of in Arterial blood 19:29:00 [facility] Pulse oximetry [facility] Systolic blood 2022-06-27 142 mm[Hg] University of pressure 19:14:00 [facility] Diastolic blood 2022-06-27 87 mm[Hg] University o f pressure 19:14:00 [facility] Heart rate 2022-06-27 94 /min University of 19:13:00 [facility] Body temperature 2022-06-27 36.83 Jo University of 19:13:00 [facility] Respiratory rate 2022-06-27 16 /min University of 19:13:00 [facility] Body height 2022-06-27 170.2 cm University of 19:13:00 [facility] Body weight 2022-06-27 85.367 kg University of 19:13:00 [facility] BMI 2022-06-27 29.48 kg/m2 University of 19:13:00 [facility] Oxygen saturation 2022-06-27 95 /min [facility] in Arterial blood 19:13:00 [facility] Pulse oximetry Branch Systolic blood 2022-06-18 133 mm[Hg] [facility] of pressure 17:11:00 [facility] Diastolic blood 2022-06-18 86 mm[Hg] University o f pressure 17:11:00 [facility] Heart rate 2022-06-18 88 /min [facility] of 17:11:00 [facility] Body temperature 2022-06-18 36.11 Jo [facility] of 17:11:00 [facility] Body height 2022-06-18 170.2 cm University of 17:11:00 [facility] Body weight 2022-06-18 84.823 kg University of 17:11:00 [facility] BMI 2022-06-18 29.29 kg/m2 University of 17:11:00 [facility] Oxygen saturation 2022-06-18 93 /min [facility] of in Arterial blood 17:11:00 [facility] Pulse oximetry Branch Systolic blood 2022-06-13 124 mm[Hg] [facility] of pressure 15:32:00 [facility] Diastolic blood 2022-06-13 81 mm[Hg] University o f pressure 15:32:00 [facility] Heart rate 2022-06-13 80 /min University of 15:32:00 [facility] Body height 2022-06-13 170.2 cm University of 15:32:00 [facility] Body weight 2022-06-13 84.823 kg University of 15:32:00 [facility] BMI 2022-06-13 29.29 kg/m2 University of 15:32:00 [facility] Oxygen saturation 2022-06-13 94 /min [facility] of in Arterial blood 15:32:00 [facility] Pulse oximetry Branch Systolic blood 2022-06-11 150 mm[Hg] University of pressure 18:19:00 [facility] Diastolic blood 2022-06-11 87 mm[Hg] University o f pressure 18:19:00 [facility] Body temperature 2022-06-11 36.78 Jo University of 18:19:00 [facility] Respiratory rate 2022-06-11 18 /min University of 18:19:00 [facility] Heart rate 2022-06-11 90 /min University of 15:03:00 [facility] Oxygen saturation 2022-06-11 95 /min [facility] of in Arterial blood 15:03:00 [facility] aaksh by Pulse oximetry Branch Body weight 2022-06-11 87.499 kg University of 09:42:00 [facility] BMI 2022-06-11 30.21 kg/m2 University of 09:42:00 [facility] Body height 2022-06-06 170.2 cm University of 16:57:00 [facility] Systolic blood 2022-06-01 144 mm[Hg] University of pressure 19:22:00 [facility] Diastolic blood 2022-06-01 84 mm[Hg] University o f pressure 19:22:00 [facility] Heart rate 2022-06-01 101 /min University of 19:21:00 [facility] Body temperature 2022-06-01 36.72 Jo University of 19:21:00 [facility] Respiratory rate 2022-06-01 20 /min University of 19:21:00 [facility] Body height 2022-06-01 213.4 cm University of 19:21:00 [facility] Body weight 2022-06-01 86.183 kg University of 19:21:00 [facility] BMI 2022-06-01 18.93 kg/m2 University of 19:21:00 [facility] Oxygen saturation 2022-06-01 95 /min University of in Arterial blood 19:21:00 [facility] by Pulse oximetry Branch Systolic blood 2022-03-29 116 mm[Hg] University of pressure 17:39:00 [facility] Diastolic blood 2022-03-29 77 mm[Hg] University o f pressure 17:39:00 [facility] Heart rate 2022-03-29 96 /min University of 17:39:00 [facility] Body temperature 2022-03-29 37.28 Jo University of 17:39:00 [facility] Body height 2022-03-29 170.2 cm University of 17:39:00 [facility] Body weight 2022-03-29 85.276 kg University of 17:39:00 [facility] BMI 2022-03-29 29.44 kg/m2 University of 17:39:00 [facility] Oxygen saturation 2022-03-29 93 /min [facility] in Arterial blood 17:39:00 [facility] by Pulse oximetry Branch Oxygen saturation 2022-03-28 91 /min [place] [facility] in Arterial blood 21:43:00 [facility] by Pulse oximetry Branch Oxygen saturation 2022-03-28 95 /min [facility] in Arterial blood 21:02:00 [facility] by Pulse oximetry Branch Systolic blood 2022-03-28 96 mm[Hg] University of pressure 21:01:00 [facility] Diastolic blood 2022-03-28 62 mm[Hg] University o f pressure 21:01:00 [facility] Heart rate 2022-03-28 98 /min University of 21:01:00 [facility] Body temperature 2022-03-28 36.39 Jo [facility] of 21:01:00 [facility] Respiratory rate 2022-03-28 16 /min University of 21:01:00 [facility] Body weight 2022-03-28 87.091 kg University of 21:01:00 [facility] BMI 2022-03-28 30.07 kg/m2 University of 21:01:00 [facility] Systolic blood 2022-03-11 119 mm[Hg] University of pressure 20:34:00 [facility] Diastolic blood 2022-03-11 78 mm[Hg] University o f pressure 20:34:00 [facility] Heart rate 2022-03-11 89 /min University of 20:34:00 [facility] Body temperature 2022-03-11 36.72 Jo University of 20:34:00 [facility] Respiratory rate 2022-03-11 17 /min University of 20:34:00 [facility] Body height 2022-03-11 170.2 cm University of 20:34:00 [facility] Body weight 2022-03-11 87.136 kg University of 20:34:00 [facility] BMI 2022-03-11 30.09 kg/m2 University of 20:34:00 [facility] Oxygen saturation 2022-03-11 90 /min University of in Arterial blood 20:34:00 [place] [facility] by Pulse oximetry Branch Systolic blood 2022-02-25 138 mm[Hg] University of pressure 20:09:00 [facility] Diastolic blood 2022-02-25 88 mm[Hg] University o f pressure 20:09:00 [facility] Heart rate 2022-02-25 97 /min University of 20:09:00 [facility] Respiratory rate 2022-02-25 17 /min University of 20:09:00 [facility] Body height 2022-02-25 170.2 cm University of 20:09:00 [facility] Body weight 2022-02-25 86.637 kg University of 20:09:00 [facility] BMI 2022-02-25 29.91 kg/m2 University of 20:09:00 [facility] Oxygen saturation 2022-02-25 90 /min University of in Arterial blood 20:09:00 [place] [facility] Pulse oximetry Branch Systolic blood 2022-02-14 102 mm[Hg] University of pressure 14:38:00 [facility] Diastolic blood 2022-02-14 71 mm[Hg] University o f pressure 14:38:00 [facility] Heart rate 2022-02-14 111 /min University of 14:38:00 [facility] Body temperature 2022-02-14 37.22 Jo University of 14:38:00 [facility] Respiratory rate 2022-02-14 19 /min University of 14:38:00 [facility] Body height 2022-02-14 170.2 cm University of 14:38:00 [facility] Body weight 2022-02-14 85.049 kg University of 14:38:00 [facility] BMI 2022-02-14 29.37 kg/m2 University of 14:38:00 [facility] Oxygen saturation 2022-02-14 92 /min pt states that Universi ty of in Arterial blood 14:38: is good for [facility] by Pulse oximetry her. Branch Systolic blood 2022-02-08 125 mm[Hg] University of pressure 14:30:00 [facility] Branch Diastolic blood 2022-02-08 82 mm[Hg] University o f pressure 14:30:00 [facility] Heart rate 2022-02-08 100 /min University of 14:30:00 [facility] Body temperature 2022-02-08 37 Jo University of 14:30:00 [facility] Body height 2022-02-08 170.2 cm University of 14:30: [facility] Body weight 2022-02-08 85.639 kg University of 14:30:00 [facility] BMI 2022-02-08 29.57 kg/m2 University of 14:30:00 [facility] Oxygen saturation 2022-02-08 93 /min University of in Arterial blood 14:30:00 [facility] by Pulse oximetry Branch Systolic blood 2022-02-05 149 mm[Hg] University of pressure 19:08:00 [facility] Branch Diastolic blood 2022-02-05 97 mm[Hg] University o f pressure 19:08:00 [facility] Heart rate 2022-02-05 128 /min University of 19:04:00 [facility] Body temperature 2022-02-05 39.17 Jo University of 19:04:00 [facility] Respiratory rate 2022-02-05 16 /min University of 19:04:00 [facility] Body height 2022-02-05 170.2 cm University of 19:04:00 [facility] Body weight 2022-02-05 87.629 kg University of 19:04:00 [facility] BMI 2022-02-05 30.26 kg/m2 University of 19:04:00 [facility] Oxygen saturation 2022-02-05 99 /min University of in Arterial blood 19:04:00 [facility] akash by Pulse oximetry Branch Systolic blood 2022-01-21 102 mm[Hg] University of pressure 22:03:00 [facility] Diastolic blood 2022-01-21 65 mm[Hg] University o f pressure 22:03:00 [facility] Heart rate 2022-01-21 98 /min University of :03:00 [facility] Body temperature 2022-01-21 37.22 Jo University of 22:03:00 [facility] Respiratory rate 2022-01-21 16 /min University of :03:00 [facility] Body height 2022-01-21 170.2 cm University of :03:00 [facility] Body weight 2022-01-21 89.721 kg University of :03:00 [facility] BMI 2022-01-21 30.98 kg/m2 University of :03:00 [facility] Oxygen saturation 2022-01-21 95 /min University of in Arterial blood 22:03:00 [facility] by Pulse oximetry Branch Systolic blood 2022-01-07 100 mm[Hg] University of pressure 21:27:00 [facility] Diastolic blood 2022-01-07 69 mm[Hg] University o f pressure 21:27:00 [facility] Heart rate 2022-01-07 93 /min University of 21:23:00 [facility] Body height 2022-01-07 170.2 cm University of 21:23:00 [facility] Body weight 2022-01-07 89.676 kg University of :23:00 [facility] BMI 2022-01-07 30.96 kg/m2 University of 21:23:00 [facility] Oxygen saturation 2022-01-07 92 /min University of in Arterial blood 21:23:00 [facility] akash by Pulse oximetry Branch Systolic blood 2021-11-26 146 mm[Hg] University of pressure 19:30:00 [facility] Branch Diastolic blood 2021-11-26 79 mm[Hg] University o f pressure 19:30:00 [facility] Heart rate 2021-11-26 87 /min University of 19:28:00 [facility] Body temperature 2021-11-26 37.17 Jo University of 19:28:00 [facility] Body height 2021-11-26 170.2 cm University of 19:28:00 [facility] Body weight 2021-11-26 89.767 kg University of 19:28:00 [facility] BMI 2021-11-26 31.00 kg/m2 [facility] 19:28:00 [facility] Oxygen saturation 2021-11-26 96 /min [facility] in Arterial blood 19:28:00 [facility] by Pulse oximetry [place] WEIGHT 2019-10-27 92.8 kg 14:28:00 WEIGHT 2019-10-19 92.7 kg 00:00:00 WEIGHT 2019-10-13 91.6 kg 00:00:00 Systolic blood 2021-10-12 128 mm[Hg] [facility] pressure 17:10:00 Hospital Diastolic blood 2021-10-12 65 mm[Hg] [facility] pressure 17:10:00 [facility] Heart rate 2021-10-12 100 /min [facility] 17:10:00 [facility] Body temperature 2021-10-12 36.28 Jo [facility] 17:10:00 [facility] Respiratory rate 2021-10-12 19 /min [facility] 17:10:00 [facility] Oxygen saturation 2021-10-12 98 /min [facility] in Arterial blood 17:10:00 Hospital by Pulse oximetry Body height 2021-10-12 167.6 cm [facility] 13:08:00 Hospital Body weight 2021-10-12 88.6 kg [facility] 13:08:00 Hospital BMI 2021-10-12 31.53 kg/m2 [facility] 13:08:00 Hospital Procedures Procedure Date / Time Performing Clinician Source Performed XR ABDOMEN 1 VW 2022-08-21 18:17[facility] 2022-08-21 18:03:00 [facility] MOLECULAR FLU 2022-07-11 20:03:00 Margarita Peacock [facility] REFERRAL- 2022-07-10 05:01:00 Doctor Unassigned, [facility] REQUEST/RESPONSE [place] [facility] MISCELLANEOUS LAB ORDER 2022-07-09 09:06:00 [facility] FLU 2022-06-18 17:29:46 Riv[facility] VACC(),65+YR,0.5 Medica l Branch ML,IM,ADJUVANTED,QUAD(FLU AD) POCT GLUCOSE (AUTOMATED) 2022-06-11 18:19:00 Letty, Akil[facility] POCT GLUCOSE (AUTOMATED) 2022-06-11 15:02:00 Akilah [facility] BASIC METABOLIC PANEL 2022-06-11 09:00:00 Deshawn High [facility] (NA, K, CL, CO2, GLUCOSE, Medica l Branch BUN, CREATININE, CA) CBC WITH DIFF 2022-06-11 09:00:00 Deshawn High [facility] POCT GLUCOSE (AUTOMATED) 2022-06-11 02:29:00 Akilah [facility] POCT GLUCOSE (AUTOMATED) 2022-06-10 22:19:00 Akilah Saenz [facility] POCT GLUCOSE (AUTOMATED) 2022-06-10 18:27:00 Akilah Saenz [facility] POCT GLUCOSE (AUTOMATED) 2022-06-10 14:35:00 Akilah Saenz [facility] MAGNESIUM 2022-06-10 08:39:00 Deshawn High [facility] BASIC METABOLIC PANEL 2022-06-10 08:39:00 Deshawn High [facility] (NA, K, CL, CO2, GLUCOSE, Medica l Branch BUN, CREATININE, CA) CBC WITH DIFF 2022-06-10 08:39:00 [facility] PRO-BNP 2022-06-10 08:39:00 Deshawn High [facility] POCT GLUCOSE (AUTOMATED) 2022-06-10 02:27:00 Akilah Saenz [facility] POCT GLUCOSE (AUTOMATED) 2022-06-09 22:30:00 Akilah Saenz [facility] POCT GLUCOSE (AUTOMATED) 2022-06-09 17:46:00 Akilah Saenz [facility] POCT GLUCOSE (AUTOMATED) 2022-06-09 14:01:00 Akilah Saenz [facility] BASIC METABOLIC PANEL 2022-06-09 10:47:00 Deshawn High [facility] (NA, K, CL, CO2, GLUCOSE, Medica l Branch BUN, CREATININE, CA) CBC WITH DIFF 2022-06-09 10:47:00 Deshawn High [facility] LACTIC ACID WHOLE BLOOD 2022-06-09 10:47:00 Deshawn High [facility] POCT GLUCOSE (AUTOMATED) 2022-06-09 02:14:00 Akilah Saenz [facility] POCT GLUCOSE (AUTOMATED) 2022-06-08 22:39:00 Akilah Saenz [facility] POCT GLUCOSE (AUTOMATED) 2022-06-08 18:00:00 Akilah Saenz [facility] POCT GLUCOSE (AUTOMATED) 2022-06-08 14:22:00 Akilah Saenz [facility] BASIC METABOLIC PANEL 2022-06-08 09:21:00 Deshawn High [facility] (NA, K, CL, CO2, GLUCOSE, Medica l Branch BUN, CREATININE, CA) CBC WITH DIFF 2022-06-08 09:21:00 [facility] N-TERMINAL PRO-BNP 2022-06-08 09:21:00 Tonny Martinez [facility] POCT GLUCOSE (AUTOMATED) 2022-06-08 02:35:00 Akilah [facility]enz [facility] POCT GLUCOSE (AUTOMATED) 2022-06-07 22:43:00 Akilah Saenz [facility] POCT GLUCOSE (AUTOMATED) 2022-06-07 17:16:00 Akilah [facility]enz [facility] URINE DRUG (IMMUNOASSAY) 2022-06-07 15:19:00 Juan Pablo Fisher [facility] SCREEN URINE CULTURE 2022-06-07 15:19:00 Juan Pablo Fisher o f [facility] SODIUM, URINE RANDOM 2022-06-07 15:19:00 Juan Pablo Fisher [facility] PROTEIN CREAT RATIO URINE 2022-06-07 15:19:00 Juan Pablo Fisher [facility] POCT GLUCOSE (AUTOMATED) 2022-06-07 13:57:00 Akilah [facility]enz [facility] LACTATE DEHYDROGENASE 2022-06-07 11:58:00 Natalia [facility] SEDIMENTATION RATE 2022-06-07 11:58:[address] [facility] CBC WITH DIFF 2022-06-07 11:58:00 Natalia [facility] CREATINE KINASE 2022-06-07 11:10:00 Natalia [facility] URIC ACID 2022-06-07 11:10:00 Natalia [facility] FERRITIN SERUM 2022-06-07 11:10:00 Natalia [facility] C-REACTIVE PROTEIN 2022-06-07 11:10:[address] [facility] THYROID STIMULATING 2022-06-07 11:10:00 Juan Pablo Fisher [facility] HORMONE [facility] COMP. METABOLIC PANEL 2022-06-07 11:10:00 Natalia narda [facility] ([id number]) [facility] LIPID PANEL ([id number])(TOTAL 2022-06-07 11:10:00 Juan Pablo Fisher [facility] TRIGLYCERIDES, HDL) IRON PANEL 2022-06-07 11:10:00 Natalia [facility] PROTHROMBIN TIME / INR 2022-06-07 11:10:00 Natalia narda [facility] URINALYSIS 2022-06-07 11:10:00 Natalia [facility] N-TERMINAL PRO-BNP 2022-06-07 11:10:00 Tonny Martinez [facility] PROCALCITONIN 2022-06-07 11:10:00 Natalia [facility] AC VBG + LACTIC ACID 2022-06-07 11:10:00 Natalia narda [facility] POCT GLUCOSE (AUTOMATED) 2022-06-07 08:23:00 Akilah [facility] POCT GLUCOSE (AUTOMATED) 2022-06-07 03:02:00 Akilah [facility] TRANSTHORACIC ECHO (TTE) 2022-06-06 21:04:00 Akilah Saenz [facility] COMPLETE [facility] HB ECG ROUTINE & RHYTHM 2022-06-06 20:10:18 Danae Link [facility] STRIP [facility] COVID-19 (ID NOW RAPID 2022-06-06 20:10:00 Danae Link [facility] TESTING) Medical Branch LAB ONLY COVID 2022-06-06 20:10:00 Danae Link [facility] INTERPRETATION [facility] AC PANEL 21 + LACTIC ACID 2022-06-06 18:51:00 [facility] LIP[facility] 2022-06-06 18:47:00 Danae Link [facility] TROPONIN I 2022-06-06 18:47:00 Danae Link [facility] COMP. METABOLIC PANEL 2022-06-06 18:47:00 Danae Link [facility] ([id number]) [facility] CBC WITH DIFF 2022-06-06 18:47:00 Danae Link [facility] GLYCOSYLATED HEMOGLOBIN 2022-06-06 18:47:00 Akilah Saenz [facility] (A1C) [facility] N-TERMINAL PRO-BNP 2022-06-06 18:47:00 Danae Link [facility] XR CHEST 1 VW 2022-06-06 17:33:42 Danae Link [facility] CONSENT/REFUSAL FOR 2022-06-06 16:38:54 Doctor Unassigned, [facility] DIAGNOSIS AND TREATMENT [place] [facility] POCT SARS-COV-2 ANTIGEN 2022-06-01 19:36:00 Torri Arzola [facility] (BINAX NOW) [facility] POCT MOLECULAR FLU 2022-06-01 19:30:00 Unknown, [facility] POCT MOLECULAR STREP 2022-06-01 19:27:00 Unknown, Attending [facility] EXTERNAL PROVIDER RECORDS 2022-05-24 06:01:00 Doctor Unassigned, [facility] [place] [facility] CT ABDOMEN WO CONTRAST 2022-04-30 14:57:57 Raz Tineo [facility] CT THORAX WO CONTRAST 2022-04-01 20:36:46 [facility] XR CHEST 2 VW 2022-03-28 21:20:56 Manuela [facility] ASSIGNMENT OF BENEFITS 2022-03-28 19:52:23 Doctor Unassigned, [facility] EXTERNAL PROVIDER RECORDS 2022-02-28 06:01:00 Doctor Unassigned, [facility] Name [facility] POCT MOLECULAR FLU 2022-02-14 14:46:00 Unknown, Attending [facility] POCT MOLECULAR STREP 2022-02-14 14:44:00 Unknown, Attending [facility] POCT MOLECULAR FLU 2022-02-05 19:15:00 Unknown, Attending [facility] POCT MOLECULAR STREP 2022-02-05 19:13:00 Unknown, Attending [facility] POCT SARS-COV-2 ANTIGEN 2022-02-05 00:00:00 Rissa Baker [facility] (BINAX NOW) [facility] SCANNED LAB RESULTS 2022-01-21 05:01:00 Doctor Fabienne [facility] URINALYSIS 2021-11-26 22:10:00 My [facility] URINE CULTURE 2021-11-26 22:06:00 Rivka [facility] GALV ONLY - VAGINAL 2021-11-26 22:06:00 Raz Tineo [facility] PATHOGENS BY NUCLEIC ACID Medica [facility] TESTING COMP. METABOLIC PANEL 2021-11-26 20:45:00 Raz Tineo [facility] ([id number]) [facility] PNEUMOCOCCAL 20 CONJUGATE 2021-11-26 20:08:46 Raz Tineo [facility] (PREVNAR 20) VACCINE Medical [facility] POC GLUCOSE 2021-10-12 15:49:[address] [facility] [place] AN ELECTIVE 2021-10-12 14:34:[address] [facility] ENDOTRACHEAL AIRWAY [place] ORBITOTOMY 2021-10-12 14:24:00 [facility] POC GLUCOSE 2021-10-12 13:36:00 [facility] EXTERNAL FIT DNA 2021-07-13 12:15:00 Doctor Unassigned, [facility] [place] [facility] Plan of Care Planned Activity Planned Date Details Comments Source Future Scheduled 2022-08-24 Hepatitis C screening [facility] Test 23:33:59 (procedure) [code = 460676298] Future Scheduled 2022-08-[address] [facility] Test 23:33:59 SCREENING [code = BREAST CANCER SCREENING] Future Scheduled 2022-08-24 COLONOSCOPY SCREENING [facility] Test 23:33:59 [code = COLONOSCOPY SCREENING] Future Scheduled 2022-08-24 SHINGLES VACCINES (1 Met [facility] Test 23:33:59 of 2) [code = SHINGLES VACCINES (1 of 2)] Future Scheduled 2022-08-24 HEPATITIS B VACCINES Met [facility] Test 23:33:59 (1 of 3 - Risk 3-dose series) [code = HEPATITIS B VACCINES (1 of 3 - Risk 3-dose series)] Future Scheduled 2022-08-24 65+ PNEUMOCOCCAL [facility] Test 23:33:59 VACCINE (2 - PCV) [code = 65+ PNEUMOCOCCAL VACCINE (2 - PCV)] Future Scheduled 2022-08-24 COVID-19 VACCINE (4 - [facility] Test 23:33:59 Booster for Moderna series) [code = COVID-19 VACCINE (4 - Booster for Moderna series)] Future Scheduled 2022-08-24 INFLUENZA VACCINE Method [facility] Test 23:33:59 [code = INFLUENZA VACCINE] Future Scheduled 2022-08-24 Hepatitis C screening [facility] Test 23:33:59 (procedure) [code = [id number]] Future Scheduled 2022-08-[address] [facility] Test 23:33:59 SCREENING [code = BREAST CANCER SCREENING] Future Scheduled 2022-08-24 COLONOSCOPY SCREENING [facility] Test 23:33:59 [code = COLONOSCOPY SCREENING] Future Scheduled 2022-08-24 SHINGLES VACCINES (1 Met [facility] Test 23:33:59 of 2) [code = SHINGLES VACCINES (1 of 2)] Future Scheduled 2022-08-24 HEPATITIS B VACCINES Met [facility] Test 23:33:59 (1 of 3 - Risk 3-dose series) [code = HEPATITIS B VACCINES (1 of 3 - Risk 3-dose series)] Future Scheduled 2022-08-24 65+ PNEUMOCOCCAL [facility] Test 23:33:59 VACCINE (2 - PCV) [code = 65+ PNEUMOCOCCAL VACCINE (2 - PCV)] Future Scheduled 2022-08-24 COVID-19 VACCINE (4 - Me [facility] Test 23:33:59 Booster for Moderna series) [code = COVID-19 VACCINE (4 - Booster for Moderna series)] Future Scheduled 2022-08-24 INFLUENZA VACCINE Method is Hospital Test 23:33:59 [code = INFLUENZA VACCINE] Future Scheduled 2022-04-30 COVID-19 Vaccination [facility] [place] Test 08:39:11 (#1) [code = COVID-19 [facility] (#1)] Center Future Scheduled 2022-04-30 COVID-19 Vaccination [facility] [place] Test 08:39:11 (#1) [code = COVID-19 [facility] Vaccination (#1)] Center Future Scheduled 2021-05-15 COVID-19 VACCINE (1) Met [facility] Test 14:46:23 [code = COVID-19 VACCINE (1)] Future Scheduled 2021-05-15 Hepatitis C screening [facility] Test 14:46:23 (procedure) [code = [id number]] Future Scheduled 2021-05-[address] [facility] Test 14:46:23 SCREENING [code = BREAST CANCER SCREENING] Future Scheduled 2021-05-15 COLONOSCOPY SCREENING [facility] Test 14:46:23 [code = COLONOSCOPY SCREENING] Future Scheduled 2021-05-15 SHINGLES VACCINES [facility] Test 14:46:23 (#1) [code = SHINGLES VACCINES (#1)] Future Scheduled 2021-05-15 INFLUENZA VACCINE [facility] Test 14:46:23 [code = INFLUENZA VACCINE] Future Scheduled 2021-05-15 65+ PNEUMOCOCCAL [facility] Test 14:46:23 VACCINE (2 of 2 - PPSV23) [code = 65+ PNEUMOCOCCAL VACCINE (2 of 2 - PPSV23)] Encounters Start End Encounter Admission Attending Care Care Encounter Source Date/Time Date/Time Type Type Clinicians Facility Department ID 2021-02-12 Emergency [facility] [id number] Univers 21:56:05 ity of [facility] 2021-02-12 Emergency [facility] [id number] Univers 18:42:06 ity of [facility] 2021-02-10 Emergency [facility] [id number] Univers 12:50:21 ity of [facility] 2021-02-09 Emergency [facility] [id number] Univers [facility]-20 2022-09-20 Outpatient Bryan TINEO [facility] [id number] Univers 15:00:00 15:00:00 RAZ [facility] 2022-08-27 2022-08-27 [facility] [id number] Univers 00:00:00 00:00:00 [facility] [id number] it [facility] [id number] Jefry as ANTHONY?BLEA [id number] [address] MEDICAL OFFICE [facility] 2022-08-26 2022-08-26 Outpatient Bryan LIN [facility] [id number] Univers 14:30:00 14:30:00 [facility] 2022-08-21 2022-08-21 Urgent Miley [facility] [id number] Univers 12:30:00 14:07:31 Care Unknown, [facility] [id number] ity [facility] [id number] Jefry as ANTHONY?BLEA [id number] [address] MEDICAL OFFICE [facility] 2022-08-21 2022-08-21 [facility] [id number] Univers 13:01:59 13:45:00 [facility] 2022-08-21 2022-08-21 [facility] [id number] Univers 13:01:59 13:45:00 Encounter [facility] [id number] ity of [place] [id number] Jefry as ANTHONY?BLEA [id number] Sd dicethan [address] MEDICAL OFFICE [facility] 2022-08-15 2022-08-15 Case Sky [facility] [id number] Univers 00:00:00 00:00:00 Management , Scarlett LESLIE [id number] ity of Kim LEACH [id number] Jefry as ANTHONY?BLEA [id number] Sd dicethan [address] MEDICAL OFFICE [facility] 2022-08-14 2022-08-14 Pre Visit UYEN Perez [id number] Univers 00:00:00 00:00:00 Outreach Mikhail VIDALES [id number] ity of [facility] [id number] Jefry as [id number] [facility] [address] 2022-08-09 2022-08-09 Life Enrichment Assistant Lab, Ang - [facility] [id number] Univers 11:00:00 11:15:00 Visit Raz Tineo HEALTH 350.1.13.10 ity of [facility] 4.2.7.2.686 Jefry as ANTHONY?BLEA [id number] Sd agustin LONG [address] [facility] OFFICE [facility] 2022-08-09 2022-08-09 Outpatient R RIVKA [facility] [id number] Univers 10:30:00 10:47:38 RAZ ity of [facility] 2022-08-09 2022-08-09 Office Rivka [facility] 1.2.840.114 [id number] Univers 10:30:00 10:47:38 Visit Raz HEALTH 350.1.13.10 it y of [facility] 4.2.7.2.686 Jefry as ANTHONY?BLEA [id number] Sd dicethan LONG [address] [facility] OFFICE [facility] 2022-08-09 2022-08-09 Refill Rivka [facility] 1.2.840.114 [id number] Univers 00:00:00 00:00:00 Raz HEALTH 350.1.13.10 it y of [place] 4.2.7.2.686 Jefry as ANTHONY?BLEA [id number] [address] OFFICE [facility] 2022-08-02 2022-08-02 Telephone [facility] 1.2.615.413 [id number] Univers 00:00:00 00:00:00 Raz HEALTH 350.1.13.10 it y of [place] 4.2.7.2.686 Jefry as ANTHONY?BLEA [id number] [address] OFFICE [facility] 2022-07-19 2022-07-19 [facility]phone [facility] 1.2.758.909 [id number] [id number] Univers 00:00:00 00:00:00 Rama Smith [place] 350.1.13.10 i ty of [place].7.2.[place] [id number] [address] 2022-07-11 2022-07-11 Outpatient [facility] [id number] Univers 14:30:00 15:05:23 MARGARITA ity of [facility] 2022-07-11 2022-07-11 [facility] 1.2.840.114 [id number] Univers 14:30:00 15:05:23 Visit Margarita A HEALTH 350.1.13.10 i ty of [place] 4.2.7.2.686 Jefry as ANTHONY?BLEA [id number] [address] OFFICE [facility] 2022-07-11 2022-07-11 Telephone [facility] 1.2.221.301 [id number] [id number] Univers 00:00:00 00:00:00 Raz HEALTH 350.1.13.10 it y of [place] 4.2.7.2.686 Jefry as ANTHONY?BLEA [id number] [address] OFFICE [facility] 2022-07-11 2022-07-11 Telephone [facility] 1.2.394.769 [id number] Univers 00:00:00 00:00:00 Margarita A HEALTH 350.1.13.10 i ty of [place] 4.2.7.2.686 Jefry as ANTHONY?BLEA [id number] Me dical ELOINAEY [address] MEDICAL OFFICE [facility] 2022-07-10 2022-07-10 Orders Doctor UYEN 1.2.840.114 [id number] Univers 00:00:00 00:00:00 Only Unassigned, FLASH 350.1.13.10 ity of [place] [facility] 4.2.7.2.686 Jefry as [id number] [address] 2022-07-09 2022-07-09 Lab [facility] [id number] 00:00:00 00:00:00 Requisitio [facility] 2022-07-09 2022-07-09 Lab [facility] [id number] [address] 00:00:00 00:00:00 Requisitio [facility] 2022-07-02 2022-07-02 Telephone [facility] 1..339.793 7503 [id number] Univers 00:00:00 00:00:00 Rama [facility] 350.1.13.10 i ty of [facility] 4.2.7.2.[place] [id number] Sd texethan [facility] [address] [facility] 2022-07-01 2022-07-01 Outpatient R REILLY [facility] [id number] Univers 09:40:00 09:40:00 TONNY villar o f [facility] 2022-06-27 2022-06-27 Urgent Jony Roy [facility] 1.2.840.114 [id number] Univers 14:00:00 14:20:00 Care Unknown, Attending HEALTH 350.1.13.10 ity of [place] 4.2.7.2.686 Jefry as ANTHONY?BLEA [id number] Sd texeth[place] LONG [address] MEDICAL OFFICE [facility] 2022-06-27 2022-06-27 Outpatient R MANUELA [facility] [id number] Univers 14:00:00 14:00:00 JONY villar [facility] 2022-06-26 2022-06-26 Telephone [facility] 1.2.916.663 [id number] [id number] Univers 00:00:00 00:00:00 Raz HEALTH 350.1.13.10 it y of [place] 4.2.7.2.686 Jefry as ANTHONY?BLEA [id number] Sd agustin LONG [address] [facility] OFFICE [facility] 2022-06-25 2022-06-25 Telephone [facility] 1.2.933.453 [id number] [id number] Univers 00:00:00 00:00:00 Rama ALLENLOBITO 350.1.13.10 i ty of [facility] 4.2.7.2.[place] [id number] [place] agustin [facility] 2022-06-18 2022-06-18 Life Enrichment Assistant Lab, Ang - Db [facility] 1.2.840.1 14 [id number] Univers 11:45:00 12:55:15 Visit Raz Tineo HEALTH 350.1.13.10 ity of [facility] 4.2.7.2.686 Jefry as ANTHONY?BLEA [id number] Sd agustin LONG [address] [facility] OFFICE [facility] 2022-06-18 2022-06-18 Outpatient R RIVKA [facility] [id number] Univers 11:00:00 11:38:01 RAZ ity of [facility] 2022-06-18 2022-06-18 Office [facility] 1.2.840.114 [id number] Univers 11:00:00 11:38:[address] [facility] 350.1.13.10 it y of [facility] 4.2.7.2.686 Jefry as ANTHONY?BLEA [id number] [facility] [address] [facility] OFFICE [facility] 2022-06-13 2022-06-13 Outpatient R RENA ROLLINS [facility] 10 [id number] Univers 09:00:00 09:51:36 RENA ROLLINS i ty of [facility] 2022-06-13 2022-06-13 Office [facility] 1.2.840.114 [id number] Univers 09:00:00 09:51:36 Visit Rena LEACH 350.1.13.10 i ty of [facility] 4.2.7.2.[place] [id number] Sd dical NAL 085 [facility] 2022-06-13 2022-06-13 Telephone [facility] 1.2.281.281 [id number] Univers 00:00:00 00:00:00 Rena LEACH 350.1.13.10 i ty of [place] 4.2.7.2.[place] [id number] Sd dicia NAL 085 [facility] 2022-06-12 2022-06-12 Telephone [facility] 1.2.009.339 7043 [id number] Univers 00:00:00 00:00:00 Sendil Margi LEACH 350.1.13.10 ity of [place] 4.2.7.2.[place] [id number] Sd dicia NAL 059 [facility] 2022-06-12 2022-06-12 Transition CHU Beltran 1..840.114 10 [id number] Univers 00:00:00 00:00:00 of Care Flori DOWNEY 350.1.13.10 i ty of [place]2.7.2.[place] [id number] [facility] [address] 2022-06-06 2022-06-11 Inpatient X LETTY [facility] JAMES [id number] Univers 11:00:00 17:00:00 AKILAH villar of [facility] 2022-06-06 2022-06-11 [facility] Danae Link [facility] 1.2.840.1 14 [id number] Univers 11:00:00 17:00:00 Encounter Akilah Saenz 350.1.13.10 ity of [facility] 4.2.7.2.[place] [id number] [facility] [address] 2022-06-04 2022-06-04 Telephone Rivka [facility] 1.2.090.244 [id number] Univers 00:00:00 00:00:00 Raz [facility] 350.1.13.10 it y of [facility] 4.2.7.2.686 Jefry as ANTHONY?BLEA [id number] [facility] [address] MEDICAL OFFICE BUILDING 2022-06-01 2022-06-01 Outpatient R LEODAN [facility] [id number] Univers 13:20:00 14:42:18 REENU ity of [facility] 2022-06-01 2022-06-01 Urgent Omar Mcgarry [facility] 1.2.840.11 4 [id number] Univers 13:20:00 13:40:00 Care Unknown, Attending HEALTH 350.1.13.10 ity of [place] 4.2.7.2.686 Jefry as ANTHONY?BLEA [id number] Sd agustin LONG [address] [facility] OFFICE [facility] 2022-05-28 2022-05-28 Refill Rivka [facility] 1.2.840.114 [id number] Univers 00:00:00 00:00:00 Raz HEALTH 350.1.13.10 it y of [facility] 4.2.7.2.686 Jefry as ANTHONY?BLEA [id number] Sd dicethan LONG 044 [facility] 2022-05-24 2022-05-24 Orders Doctor UYEN 1.2.840.114 [id number] Univers 00:00:00 00:00:00 Only Unassigned, FLASH 350.1.13.10 ity of [place] [facility] 4.2.7.2.686 Jefry as [id number] [facility] [address] 2022-05-20 2022-05-20 Refill Doctor [facility] 1.2.840.114 [id number] Univers 00:00:00 00:00:00 Unassigned, HEALTH 350.1.13.10 ity of [place] [facility] 4.2.7.2.686 Jefry as ANTHONY?BLEA [id number] Sd dicethan LONG 044 [facility] 2022-05-20 2022-05-20 Refill Doctor NYSTEPHY 1.2.840.114 [id number] Univers 00:00:00 00:00:00 Unassigned, HEALTH 350.1.13.10 ity of [place] [facility] 4.2.7.2.686 Jefry as ANTHONY?BLEA [id number] Sd dicethan LONG 044 [facility] 2022-05-17 2022-05-17 [facility] 1.2.840.114 [id number] Univers 00:00:00 00:00:00 Raz HEALTH 350.1.13.10 it y of [place] 4.2.7.2.686 Jefry as ANTHONY?BLEA [id number] [address] OFFICE [facility] 2022-05-09 2022-05-09 [facility] 1.2.500.001 [id number] [id number] Univers 00:00:00 00:00:00 Raz HEALTH 350.1.13.10 it y of [place] 4.2.7.2.686 Jefry as ANTHONY?BLEA [id number] [address] 2022-04-30 2022-04-30 Out[facility] [id number] Univers 08:39:10 23:59:00 RAZ ity of [facility] 2022-04-30 2022-04-30 [facility] 1.2.840.114 [id number] Univers 08:39:10 23:59:00 Encounter Raz [place] 350.1.13.10 ity of [place].2.7.2.[place] [id number] [address] 2022-04-24 2022-04-24 [facility] 1.2.807.600 [id number] [id number] Univers 00:00:00 00:00:00 Raz HEALTH 350.1.13.10 it y of [place] 4.2.7.2.686 Jefry as ANTHONY?BLEA [id number] [address] OFFICE [facility] 2022-04-22 2022-04-22 [facility] 1.2.920.055 [id number] [id number] Univers 00:00:00 00:00:00 Raz HEALTH 350.1.13.10 it y of [place] 4.2.7.2.686 Jefry as ANTHONY?BLEA [id number] [address] OFFICE [facility] 2022-04-04 2022-04-04 Outpatient R RILEY [facility] [id number] Univers 13:00:00 13:00:00 [facility] 2022-04-04 Outpatient R RILEY [facility] [id number] Univers 13:00:00 13:00:00 SENDIL [facility] 2022-04-03 2022-04-03 Telephone [facility] 1.2.044.441 [id number] Univers 00:00:00 00:00:00 Raz HEALTH 350.1.13.10 it y of [place] 4.2.7.2.686 Jefry as ANTHONY?BLEA [id number] [address] MEDICAL OFFICE BUILDING 2022-04-01 2022-04-01 Outpatient [facility] RAD [id number] Univers 13:54:47 23:59:00 TYLER villar [facility] 2022-04-01 2022-04-01 [facility] 1.2.840.114 [id number] Univers 13:50:00 23:59:00 Encounter Tyler LEACH 350.1.13.10 ity of [place] 4.2.7.2.[place] [id number] [address] 2022-04-01 2022-04-01 Telephone [facility] 1.2.204.376 [id number] Univers 00:00:00 00:00:00 Tyler HEALTH 350.1.13.10 it y of [place] 4.2.7.2.686 Jefry as ANTHONY?BLEA [id number] [address] MEDICAL OFFICE [facility] 2022-03-29 2022-03-29 Office [facility] 1.2.840.114 [id number] Univers 11:30:00 12:00:00 Visit Tyler HEALTH 350.1.13.10 it y of [place] 4.2.7.2.686 Jefry as ANTHONY?BLEA [id number] [address] OFFICE BUILDING 2022-03-29 2022-03-29 Outpatient R GUSTABO [facility] [id number] Univers 11:30:00 11:30:00 TYLER villar [facility] 2022-03-28 2022-03-28 [facility] 1.2.628.519 [id number] Univers 15:10:02 23:59:00 Encounter Jony [facility] 350.1.13.10 ity of [place] 4.2.7.2.686 Jefry as ANTHONY?BLEA [id number] Sd dical MERCEDES [address] MEDICAL OFFICE [facility] 2022-03-28 2022-03-28 Life Enrichment Assistant Lab, Ang - Db [facility] 1.2.840.1 14 [id number] Univers 15:30:00 15:45:00 Visit Radiology [facility] 350.1.13.10 ity of [place] 4.2.7.2.686 Jefry as ANTHONY?BLEA [id number] Sd dical MERCEDES [address] MEDICAL OFFICE [facility] 2022-03-28 2022-03-28 Urgent Jony Roy [facility] 1.2.840.114 [id number] Univers 15:00:00 15:28:06 Care Unknown, Attending [facility] 350.1.13.10 ity of [facility] 4.2.7.2.686 Jefry as ANTHONY?BLEA [id number] Sd dical MERCEDES [address] MEDICAL OFFICE [facility] 2022-03-28 2022-03-28 Outpatient R RADIOLOGY [facility] [id number] Univers 13:53:16 15:09:00 ity of [facility] 2022-03-28 2022-03-28 [facility] Radiology [facility] 1.2.840.114 [id number] Univers 13:53:16 15:09:00 Encounter [facility] 350.1.13.10 ity of [facility] 4.2.7.2.[place] [id number] [facility] [address] 2022-03-28 2022-03-28 Orders Doctor UYEN 1.2.840.114 [id number] Univers 00:00:00 00:00:00 Only Unassigned, FLASH 350.1.13.10 ity of [place] [facility] 4.2.7.2.686 Jefry as [id number] [facility] [address] 2022-03-11 2022-03-11 Outpatient R RIVKA, [facility] [id number] Univers 14:30:00 15:10:43 RAZ ity of [facility] 2022-03-11 2022-03-11 Office Rivka, [facility] 1.2.840.114 [id number] Univers 14:30:00 15:10:43 Visit Raz HEALTH 350.1.13.10 it y of [facility] 4.2.7.2.686 Jefry as ANTHONY?BLEA [id number] [facility] [address] MEDICAL OFFICE [facility] 2022-02-28 2022-02-28 Orders Doctor UYEN 1.2.840.114 [id number] Univers 00:00:00 00:00:00 Only Unassigned, FLASH 350.1.13.10 ity of [place] [facility] 4.2.7.2.686 Jefry as [id number] [address] 2022-02-25 2022-02-25 Outpatient R RILEY [facility] [id number] Univers 14:00:00 14:36:52 SENDIL ity [facility] 2022-02-25 2022-02-25 Office [facility] 1.2.840.114 [id number] Univers 14:00:00 14:36:52 Visit Katie LEACH 350.1.13.10 ity of [place].2.[place] [id number] Sd dicethan NAL 059 [facility] 2022-02-14 2022-02-14 Urgent Tracy Cash [facility] 1.2.840 .114 [id number] Univers 09:20:00 09:40:00 Care Unknown, Attending HEALTH 350.1.13.10 ity of [place] 4.2.7.2.686 Jefry as ANTHONY?BLEA [id number] [facility] [address] MEDICAL OFFICE [facility] 2022-02-14 2022-02-14 Outpatient R SHREYA [facility] [id number] Univers 09:20:00 09:20:00 TRACY villar o f [facility] 2022-02-13 2022-02-13 Telephone Team, [facility] UYEN 1.2.840.114 9 [id number] Univers 00:00:00 00:00:00 Health FLASH 350.1.13.10 it y of [facility] 4.2.7.2.686 [place] [id number] [address] 2022-02-11 2022-02-11 Telephone Rivka [facility] 1.2.326.872 [id number] [id number] Univers 00:00:00 00:00:00 Raz HEALTH 350.1.13.10 it y of [place] 4.2.7.2.686 Jefry as ANTHONY?BLEA [id number] Sd agustin [facility] [address] MEDICAL OFFICE [facility] 2022-02-08 2022-02-08 Life Enrichment Assistant Lab, Ang - Db [facility] 1.2.840.1 14 [id number] Univers 10:15:00 10:30:00 Visit My Tineothia [facility] 350.1.13.10 ity of [place] 4.2.7.2.686 Jefry as ANTHONY?BLEA [id number] [facility] [address] [facility] OFFICE [facility] 2022-02-08 2022-02-08 Outpatient R RIVKA [facility] [id number] Univers 09:30:00 10:09:10 RAZ jose manuel [facility] 2022-02-08 2022-02-08 Office [facility] 1.2.840.114 [id number] Univers 09:30:00 10:09:10 [facility] 350.1.13.10 it y [facility] 4.2.7.2.686 Jefry as ANTHONY?BLEA [id number] [address] OFFICE [facility] 2022-02-06 2022-02-06 Telephone Provider, [facility] 1.2.840.114 [id number] Univers 00:00:00 00:00:00 Ang Db HEALTH 350.1.13.10 it y of [facility] [place] 4.2.7.2.686 [place] ANTHONY?BLEA [id number] [facility] [address] [facility] OFFICE [facility] 2022-02-05 2022-02-05 Outpatient R SAMUEL [facility] [id number] Univers 14:00:00 14:31:10 RISSA villar [facility] 2022-02-05 2022-02-05 Urgent Rissa Baker [facility] 1.2.840.114 9 [id number] Univers 14:00:00 14:31:10 Care Unknown, Attending HEALTH 350.1.13.10 ity of [facility] 4.2.7.2.686 Jefry as ANTHONY?BLEA [id number] [facility] [address] MEDICAL OFFICE [facility] 2022-01-22 2022-01-22 Telephone Rivka [facility] 1.2.240.842 [id number] [id number] Univers 00:00:00 00:00:00 Raz HEALTH 350.1.13.10 it y of [place] 4.2.7.2.686 Jefry as ANTHONY?BLEA [phone] [facility] [address] [facility] OFFICE [facility] 2022-01-22 2022-01-22 Telephone Belkys Joshua 1.2.840.114 [id number] Univers 00:00:00 00:00:00 FLASH 350.1.13.10 it y of [facility] 4.2.7.2.686 Jefry as [id number] [facility] [address] 2022-01-21 2022-01-21 Outpatient [facility] [id number] Univers 16:40:00 17:20:29 RISSA [facility] 2022-01-21 2022-01-21 Urgent Rissa Baker [facility] 1.2.840.114 [id number] Univers 16:40:00 17:20:29 Care Traci, Barb HEALTH 350.1.13.10 ity of [place] 4.2.7.2.686 Jefry as ANTHONY?BLEA [id number] [facility] [address] [facility] OFFICE [facility] 2022-01-21 2022-01-21 Orders Doctor QIU 1.2.840.114 [id number] Univers 00:00:00 00:00:00 Only Unassigned, FLASH 350.1.13.10 ity of [place] [facility] 4.2.7.2.686 Jefry as [id number] [address] 2022-01-17 2022-01-17 Outpatient [facility] [id number] Univers 14:30:00 14:30:00 MATEO ity [facility] 2022-01-16 2022-01-16 Refjacob [facility] 1.2.840.114 [id number] Univers 00:00:00 00:00:00 Raz HEALTH 350.1.13.10 it y of [place] 4.2.7.2.686 Jefry as ANTHONY?BLEA [id number] [address] OFFICE [facility] 2022-01-10 2022-01-10 Telephone [facility] 1.2.915.407 [id number] Univers 00:00:00 00:00:00 Katie Kiser [place] 350.1.13.10 ity of [place].2.[place] [id number] [facility] 0[address] [facility] 2022-01-07 2022-01-07 Outpatient [facility] [id number] Univers 16:00:00 16:49:54 RAZ ity of [facility] 2022-01-07 2022-01-07 Office [facility] 1.2.840.114 [id number] Univers 16:00:00 16:49:54 Visit Raz HEALTH 350.1.13.10 it y of [place] 4.2.7.2.686 Jefry as ANTHONY?BLEA [id number] [address] OFFICE [facility] 2022-01-07 2022-01-07 Telephone [facility] 1.2.303.706 [id number] 7586 Univers 00:00:00 00:00:00 Raz HEALTH 350.1.13.10 it y of [place] 4.2.7.2.686 Jefry as ANTHONY?BLEA [id number] [address] OFFICE [facility] 2021-12-27 2021-12-27 Refill [facility] 1.2.840.114 [id number] Univers 00:00:00 00:00:00 Wondiful A HEALTH 350.1.13.10 ity of [place] 4.2.7.2.686 Jefry as ANTHONY?BLEA [id number] [address] OFFICE [facility] 2021-12-03 2021-12-03 Outpatient [facility] [id number] Univers 00:00:00 00:00:00 RAZ ity of [facility] 2021-11-30 2021-11-30 [facility]ill [facility] 1.2.840.114 [id number] Univers 00:00:00 00:00:00 Raz HEALTH 350.1.13.10 it y of [place] 4.2.7.2.686 Jefry as ANTHONY?BLEA [id number] [address] OFFICE [facility] 2021-11-30 2021-11-30 Telephone [facility] 1.2.689.218 [id number] Univers 00:00:00 00:00:00 Raz HEALTH 350.1.13.10 it y of [place] 4.2.7.2.686 Jefry as ANTHONY?BLEA [phone] [address] OFFICE [facility] 2021-11-30 2021-11-30 Refill [facility] 1.2.840.114 [id number] Univers 00:00:00 00:00:00 Wondiful A HEALTH 350.1.13.10 ity of [place] 4.2.7.2.686 Jefry as ANTHONY?BLEA [id number] [address] OFFICE [facility] 2021-11-27 2021-11-27 Telephone [facility] 1.2.378.203 [id number] Univers 00:00:00 00:00:00 Raz HEALTH 350.1.13.10 it y of [place] 4.2.7.2.686 Jefry as ANTHONY?BLEA [id number] [address] OFFICE [facility] 2021-11-26 2021-11-26 Life Enrichment Assistant Lab, Ang - Db [facility] 1.2.840.1 [id number] Univers 15:30:00 15:45:00 Visit My Tineothia HEALTH 350.1.13.10 ity of [place] 4.2.7.2.686 Jefry as ANTHONY?BLEA [phone] [facility] [address] [facility] OFFICE [facility] 2021-11-26 2021-11-26 [id number] Univers 14:30:00 15:28:20 RAZ ity [facility] 2021-11-26 2021-11-26 Office [facility] 1.2.840.114 [id number] Univers 14:30:00 15:28:20 Visit Raz HEALTH 350.1.13.10 it y of [place] 4.2.7.2.686 Jefry as ANTHONY?BLEA [id number] [address] OFFICE [facility] 2021-11-26 2021-11-26 [facility] [id number] Univers 14:30:00 15:28:20 RAZ jian [facility] 2021-11-26 2021-11-26 Orders Doctor UYEN 1.2.840.114 [id number] Univers 00:00:00 00:00:00 Only Unassigned, FLASH 350.1.13.10 ity of [place] [facility] 4.2.7.2.686 Jefry as [phone] [address] 2021-11-22 2021-11-22 [facility] 1.2.840.114 [id number] Univers 00:00:00 00:00:00 Wondiful A HEALTH 350.1.13.10 ity of [place] 4.2.7.2.686 Jefry as ANTHONY?BLEA [id number] [address] 2021-11-16 2021-11-16 Telephone [facility] 1.2.009.458 [id number] Univers 00:00:00 00:00:00 Raz HEALTH 350.1.13.10 it y of [place] 4.2.7.2.686 Jefry as ANTHONY?BLEA [id number] [address] 2021-11-13 2021-11-13 Orders Doctor UYEN 1.2.840.114 [id number] Univers 00:00:00 00:00:00 Only Unassigned, FLASH 350.1.13.10 ity of [place] [facility] 4.2.7.2.686 Jefry as [phone] [address] 2021-11-09 2021-11-09 Telephone Provider, [facility] 1.2.840.114 [id number] Univers 00:00:00 00:00:00 Ang Db HEALTH 350.1.13.10 [facility] 4.2.7.2.686 [place] ANTHONY?BLEA [phone] [facility] [address] MEDICAL OFFICE [facility] 2021-11-05 2021-11-05 Abelardo Tineo [facility] 1.2.840.114 [id number] Univers 00:00:00 00:00:00 Raz HEALTH 350.1.13.10 it y of [place] 4.2.7.2.686 Jefry as ANTHONY?BLEA [id number] [address] OFFICE [facility] 2021-10-27 2021-10-27 Outpatient Bryan JEONG [facility] [id number] Univers 15:40:00 16:22:59 TARSHA villar [facility] 2021-10-27 2021-10-27 Urgent Tarsha Jeong [facility] 1.2. 840.114 [id number] Univers 15:40:00 16:22:59 Care Tracy Cash J HEALTH 350.1.13.10 ity of [place] 4.2.7.2.686 Jefry as ANTHONY?BLEA [id number] 18 [place] [address] MEDICAL OFFICE [facility] 2021-10-27 2021-10-27 [facility]ardo [facility] 1.2.840.114 [id number] Univers 00:00:00 00:00:00 Wondiful A HEALTH 350.1.13.10 ity of [place] 4.2.7.2.686 Jefry as ANTHONY?BLEA [id number] [address] MEDICAL OFFICE [facility] 2021-10-25 2021-10-25 Outpatient R JORDEN [facility] [id number] Univers 14:45:00 14:45:00 COLIN itjose manuel [facility] 2021-10-24 2021-10-24 Abelardo [facility] 1.2.840.114 [id number] Univers 00:00:00 00:00:00 Wondiful A HEALTH 350.1.13.10 [facility] 4.2.7.2.686 Jefry as ANTHONY?BLEA [id number] Sd agustin LONG [address] [place] [address] MEDICAL OFFICE BUILDING 2021-10-12 2021-10-12 [facility], 1.2.840.1 [id number] [id number] Methodi 07:19:00 12:45:00 Encounter Rickey 75178.1.[address] 3.430.2.7 Hospit a .3.978518 l .8 2021-10-12 2021-10-12 [facility], 1.2.840.1 [id number] Methodi 07:19:00 12:45:00 Encounter Rickey 15700.1.[address] 3.430.2.7 Hospit a .3.817692 l .8 2021-10-12 2021-10-12 Anesthesia Rohan Hughes 1.2.840 .1 [id number] Methodi 09:22:00 10:47:00 Event Marisela Jaquez 84641.1.[address] 3.430.2.7 Hospit a .3.928991 l .8 2021-10-12 2021-10-12 Anesthesia Rohan Hughes 1.2.840 .1 [id number] Methodi 09:22:00 10:47:00 Event Marisela Jaquez 07996.1.[address] 3.430.2.7 Hospit a .3.459175 l .8 2021-10-12 2021-10-12 Surgery [facility], 1.2.840.1 [id number] 2100 [id number] Methodi 09:00:00 10:45:[address] 3.430.2.7 Hospit a .3.653284 l .8 2021-10-12 2021-10-12 Surgery [facility], 1.2.840.1 [id number] [id number] Methodi 09:00:00 10:45:[address] 3.430.2.7 Hospit a .3.479751 l .8 2021-10-12 2021-10-12 Travel 1.2.840.1 1.2.359.937 0821 [id number] Methodi 00:00:00 00:00:[address] 3.430.2.7 0.2.7.3.698 Ho spita .3.566161 084.8 l .8 2021-10-12 2021-10-12 Travel 1.2.840.1 1.2.659.432 8431 [id number] Methodi 00:00:00 00:00:[address] 3.430.2.7 0.2.7.3.698 Ho spita .3.468320 084.8 l .8 2021-10-09 2021-10-09 Lonnie Lin [facility] 1.2.463.040 7255 [id number] Univers 00:00:00 00:00:00 Sendil Margi LE[facility].1.13.10 [facility] 4.2.7.2.686 [facility] [phone] [place] 006439 [facility] 2021-10-05 2021-10-05 Outpatient R [facility] [id number] Univers 10:24:33 23:59:00 ROXY ity [facility] 2021-10-05 2021-10-05 [facility] 1.2.840.114 [id number] Univers 10:24:33 23:59:00 Encounter Roxy LEACH 350.1.13.10 ity [facility] 4.2.7.2.686 [facility] [phone] [facility] [address] [place] [address] 2021-10-05 2021-10-05 [facility] [id number] Univers 11:00:00 11:00:00 SENDIL itjose manuel [facility] 2021-10-04 2021-10-04 Patient Doctor [facility] 1.2.840.114 [id number] Univers 00:00:00 00:00:00 Secure Msg Unassigned, HEALTH 350.1.13.10 ity of [place] ALEJANDROLOBITO 4.2.7.2.686 Jefry as ANTHONY?BLEA [phone] Sd agustin LONG [address] [facility] OFFICE [facility] 2021-10-04 2021-10-04 Telephone [facility] 1.2.081.232 [id number] Univers 00:00:00 00:00:00 Sendil Margi LEACH 350.1.13.10 ity [facility] 4.2.7.2.[place] [id number] [address] 2021-10-03 2021-10-03 [facility] [id number] Univers 08:30:00 08:53:35 SENDIL ity [facility] 2021-10-03 2021-10-03 [facility] 1.2.840.114 [id number] Univers 08:30:00 08:53:35 Visit Sendeugene LEACH 350.1.13.10 ity of [place] 4.2.7.2.[place] [id number] [address] 2021-10-03 2021-10-03 Outpatient R RILEY [facility] [id number] Univers 08:30:00 08:53:35 SENDIL ity [facility] 2021-10-03 2021-10-03 Outpatient R RILEY [facility] [id number] Univers 08:30:00 08:30:00 SENDIL ity [facility] 2021-10-03 2021-10-03 Telephone [facility] 1.2.058.339 [id number] [id number] Univers 00:00:00 00:00:00 Sendeugene LEACH 350.1.13.10 ity of [place] 4.[place].7.2.[place] [id number] [address] 2021-10-01 2021-10-01 Life Enrichment Assistant Lab, Ang - Db [facility] 1.2.840.1 14 [id number] Univers 13:15:00 13:30:00 Visit Raz Tineo HEALTH 350.1.13.10 ity [facility] 4.2.7.2.686 Jefry as ANTHONY?BLEA [id number] Sd agustin DUVALL [address] MEDICAL OFFICE BUILDING 2021-10-01 2021-10-01 Outpatient [facility] [id number] Univers 13:15:00 13:15:00 RAZ ity [facility] 2021-10-01 2021-10-01 Office [facility] 1.2.840.114 [id number] Univers 11:00:00 11:36:45 Visit Raz Vestor 350.1.13.10 it y of [place] 4.2.7.2.686 Jefry as ANTHONY?BLEA [id number] [facility] [address] MEDICAL OFFICE [facility] 2021-10-01 2021-10-01 Outpatient [facility] [id number] Univers 11:00:00 11:36:45 RAZ ity [facility] 2021-10-01 2021-10-01 Telephone BLAKE Leonardo .2.840.114 9 [id number] Univers 00:00:00 00:00:00 Colin Bob Y HEALTH 350.1.13.10 ity of [place] [phone] [address] 2021-10-01 2021-10-01 Patient Jorden [facility] 1.2.840.114 [id number] Univers 00:00:00 00:00:00 Secure Msg Colin Bob MULTISPEC 350.1.13.10 ity of [place]2.[place] [id number] [facility] AND [address] [facility]IC 2021-09-27 2021-09-27 Outpatient R RENA ROLLINS [facility] 10 [id number] Univers 15:00:00 15:00:00 RENA ROLLINS i ty [facility] 2021-09-26 2021-09-26 Telephone Riley [facility] 1.2.547.977 [id number] Univers 00:00:00 00:00:00 Sendeugene Kiser HAYLEE 350.1.13.10 ity of [facility] 4.2.7.2.[place] [phone] Sd dical NAL [address] [facility] 2021-09-25 2021-09-25 Emergency [facility] 1.2.768.952 [id number] Univers 18:39:00 23:54:00 Johnnie Hunt ALEJANDROLOBITO 350.1.13.10 i ty of [place] 4.2.7.2.[place] [id number] [facility] [address] 2021-09-25 2021-09-25 Outpatient [facility] [id number] Univers 15:04:57 18:38:00 RAZ villar [facility] 2021-09-25 2021-09-25 Outpatient [facility] ERT [id number] Univers 15:04:57 18:38:00 RAZ villar [facility] 2021-09-25 2021-09-25 [facility] 1.2.840.114 [id number] Univers 13:33:24 18:38:00 Encounter Raz HAYLEE 350.1.13.10 ity of [facility] 4.2.7.2.[place] [phone] [facility] [address] 2021-09-25 2021-09-25 Nurse Nurse, [facility] 1.2.840.114 [id number] Univers 17:45:00 18:05:00 Visit [facility] 350.1.13.10 ity of [place] 4.2.7.2.686 Jefry as ANTHONY?BLEA [phone] Sd dical KNEY [address] MEDICAL OFFICE BUILDING 2021-09-25 2021-09-25 Outpatient R LISHA [facility] [id number] Univers 14:30:00 14:30:00 MATEO villar [facility] 2021-09-25 2021-09-25 [facility] [id number] Univers 00:00:00 00:00:00 RAZ villar [facility] 2021-09-21 2021-09-21 Transition CHU Dhaliwal 1.2.840.114 [id number] Univers 00:00:00 00:00:00 of Care Krys Antione ARREDONDOY 350.1.13.10 it y of [place].2.7.2.686 [place] [id number] [facility] [address] 2021-09-18 2021-09-20 Out[facility] [id number] Univers 15:23:00 12:38:00 NICOLEJose Manuel leongjose manuel [facility] 2021-09-18 2021-09-20 Emergency Vivienne Madera [facility] 1.2.840. 114 [id number] Univers 15:23:00 12:38:00 Gus Stewart 350.1.13.10 ity of [facility] 4.2.7.2.686 [place] [phone] [facility] [address] 2021-09-20 2021-09-20 Telephone [facility] 1.2.768.954 [id number] Univers 00:00:00 00:00:00 Raz HEALTH 350.1.13.10 it y of [place] 4.2.7.2.686 Jefry as ANTHONY?BLEA [phone] Sd agustin LONG [address] MEDICAL OFFICE BUILDING 2021-09-18 2021-09-18 Outpatient R LISHA [facility] [id number] Univers 14:30:00 15:37:33 [facility] 2021-09-18 2021-09-18 Ancillary Marcie English [facility] 1.2.84 0.114 [id number] Univers 14:30:00 15:37:33 Visit Mateo Husain 350.1.13.10 ity of [facility] 4.2.7.2.686 [place] [facility] [phone] Sd agustin [facility] [address] BUILDING 2021-09-18 2021-09-18 Out[facility] [id number] Univers 15:23:00 15:23:00 NICOLEJose Manuel villar [facility] 2021-09-11 2021-09-11 Telephone [facility] 1.2.554.838 [id number] Univers 00:00:00 00:00:00 Barrington HEALTH 350.1.13.10 it y of [place] 4.2.7.2.686 Jefry as ANTHONY?BLEA [id number] [address] MEDICAL OFFICE [facility] 2021-09-06 2021-09-06 Outpatient [facility] [id number] Univers 14:30:00 14:30:00 RAZ jose manuel [facility] 2021-09-06 2021-09-06 Outpatient [facility] [id number] Univers 10:30:00 10:47:57 RAZ itjose manuel [facility] 2021-09-06 2021-09-06 Office [facility] 1.2.840.114 [id number] Univers 10:30:00 10:47:57 Visit [facility] 350.1.13.10 it y of [facility] 4.2.7.2.686 Jefry as ANTHONY?BLEA [id number] [address] OFFICE [facility] 2021-09-03 2021-09-03 Outpatient R SAMUEL [facility] [id number] Univers 18:40:00 18:41:06 RISSA jose manuel [facility] 2021-09-03 2021-09-03 Anne [facility] 1.2.840.114 [id number] Univers 18:40:00 18:41:06 Care Rissa HEALTH 350.1.13.10 it y of [place] 4.2.7.2.686 Jefry as ANTHONY?BLEA [phone] [address] MEDICAL OFFICE [facility] 2021-08-27 2021-08-27 Refill Rivka [facility] 1.2.840.114 [id number] Univers 00:00:00 00:00:00 Raz HEALTH 350.1.13.10 it y of [place] 4.2.7.2.686 Jefry as ANTHONY?BLEA [id number] [address] MEDICAL OFFICE [facility] 2021-08-23 2021-08-23 Refill Doctor [facility] 1.2.840.114 [id number] Univers 00:00:00 00:00:00 Unassigned, HEALTH 350.1.13.10 ity of [place] 4.2.7.2.686 Jefry as ANTHONY?BLEA [phone] Sd dical MERCEDES [address] [place] [address] OFFICE [facility] 2021-08-21 2021-08-21 [facility] 1.2.840.114 [id number] Univers 00:00:00 00:00:00 Wondiful A HEALTH 350.1.13.10 ity of [place] 4.2.7.2.686 Jefry as ANTHONY?BLEA [phone] Sd dical ELOINAEY [address] [place] [address] OFFICE [facility] 2021-08-21 2021-08-21 Telephone [facility] 1.2.837.014 [id number] [id number] Univers 00:00:00 00:00:00 Raz HEALTH 350.1.13.10 it y of [facility] 4.2.7.2.686 Jefry as ANTHONY?BLEA [id number] Sd dical MERCEDES [address] [place] [address] OFFICE [facility] 2021-08-15 2021-08-15 Refill [facility] 1.2.840.114 [id number] Univers 00:00:00 00:00:00 Raz HEALTH 350.1.13.10 it y of [place] 4.2.7.2.686 Jefry as ANTHONY?BLEA [id number] Sd dical MERCEDES [address] [place] [address] OFFICE [facility] 2021-08-15 2021-08-15 Telephone [facility] 1.2.019.691 [id number] Univers 00:00:00 00:00:00 Shiwan [place] 350.1.13.10 i ty of [place] 4[place]2.7.2.[place] [phone] Sd dical NAL 085 [facility] 2021-08-14 2021-08-14 Telephone [facility] 1.2.079.713 [id number] 0137 Univers 00:00:00 00:00:00 Raz HEALTH 350.1.13.10 it y of [place] 4.2.7.2.686 Jefry as ANTHONY?BLEA [phone] Sd dical [address] OFFICE [facility] 2021-08-06 2021-08-06 Life Enrichment Assistant Lab, Ang - Db [facility] 1.2.840.1 14 [id number] Univers 15:00:00 15:15:00 Visit Raz Tineo 350.1.13.10 ity of [facility] 4.2.7.2.686 Jefry as ANTHONY?BLEA [id number] [facility] [address] [facility] OFFICE [facility] 2021-08-06 2021-08-06 Outpatient [facility] [id number] Univers 15:00:00 15:00:00 RAZ itjose manuel [facility] 2021-08-06 2021-08-06 Outpatient [facility] [id number] Univers 15:00:00 15:00:00 RAZ itjose manuel [facility] 2021-08-06 2021-08-06 Office [facility] 1.2.840.114 [id number] Univers 14:30:00 14:39:14 [facility] 350.1.13.10 it y of [place] 4.2.7.2.686 Jefry as ANTHONY?BLEA [phone] [address] OFFICE [facility] 2021-08-06 2021-08-06 Outpatient [facility] [id number] Univers 14:30:00 14:30:00 RAZ itjose manuel [facility] 2021-08-03 2021-08-03 Telephone [facility] 1.2.133.473 [id number] Univers 00:00:00 00:00:00 [facility] 350.1.13.10 it y of [place] 4.2.7.2.686 Jefry as ANTHONY?BLEA [id number] [address] OFFICE [facility] 2021-08-02 2021-08-02 Telephone [facility] 1.2.995.635 [id number] Univers 00:00:00 00:00:00 Katie [place] 350.1.13.10 ity of [place].2.7.2.[place] [phone] [facility] 059 [facility] 2021-08-02 2021-08-02 Telephone [facility] 1.2.981.738 [id number] 1870 Univers 00:00:00 00:00:00 Katie LEACH 350.1.13.10 ity of [facility] 4.2.7.2.[place] [phone] [place] 006439 [facility] 2021-07-31 2021-07-31 [facility] 1.2.840.114 [id number] Univers 00:00:00 00:00:00 Wondiful A HEALTH 350.1.13.10 ity of [place] 4.2.7.2.686 Jefry as ANTHONY?BLEA [phone] [address] MEDICAL OFFICE BUILDING 2021-07-26 2021-07-26 [facility] 1.2.840.114 [id number] Univers 08:11:16 23:59:00 Encounter Katie LEACH 350.1.13.10 ity of [place] 4.2.7.2.686 [place] [id number] [facility] [address] 2021-07-26 2021-07-26 Office [facility] 1.2.840.114 [id number] Univers 14:30:00 14:58:46 Visit Colin DEAL 350.1.13.10 ity of [place].2.686 [place] CENTER [id number] [address] [facility]ES [facility]INIC 2021-07-26 2021-07-26 Outpatient Bryan LEONARDO [facility] [id number] Univers 14:30:00 14:58:46 COLIN itjose manuel [facility] 2021-07-26 2021-07-26 Office [facility] 1.2.840.114 [id number] Univers 14:30:00 14:45:00 Visit Colin DEAL 350.1.13.10 ity of [place]2.[place] [id number] [address] DIABETES CLINIC 2021-07-26 2021-07-26 Outpatient R LEONARDO, [facility] [id number] Univers 14:30:00 14:30:00 COLIN ity [facility] 2021-07-26 2021-07-26 Outpatient R JORDEN [facility] [id number] Univers 14:30:00 14:30:00 [facility] 2021-07-26 2021-07-26 Outpatient R RILEY [facility] [id number] Univers 11:00:00 11:00:00 SENDIL ity [facility] 2021-07-26 2021-07-26 [facility] 1.2.840.114 [id number] Univers 08:10:34 08:10:34 Encounter Katie LEACH 350.1.13.10 ity of [place] 4.2.7.2.686 [facility] [id number] [address] 2021-07-26 2021-07-26 [facility] 1.2.840.114 [id number] Univers 08:09:52 08:09:52 Encounter Sendeugene LEACH 350.1.13.10 ity of [facility] 4.2.7.2.686 [facility] [id number] [facility] [address] 2021-07-26 2021-07-26 Outpatient Bryan LIN [facility] [id number] Univers 08:09:07 08:09:07 SENDIL ity [facility] 2021-07-26 2021-07-26 [facility] 1.2.840.114 [id number] Univers 08:09:07 08:09:07 Encounter Katie LEACH 350.1.13.10 ity of [place] 4.2.7.2.686 [facility] [id number] [address] 2021-07-26 2021-07-26 Outpatient R RILEY [facility] [id number] Univers 00:00:00 00:00:00 SENDIL ity [facility] 2021-07-26 2021-07-26 Outpatient Bryan LIN [facility] [id number] Univers 00:00:00 00:00:00 SENDIL ity of [facility] 2021-07-26 2021-07-26 Orders Doctor UYEN 1.2.840.114 [id number] Univers 00:00:00 00:00:00 Only Unassigned, FLASH 350.1.13.10 ity of [place] [facility] 4.2.7.2.686 Jefry as [phone] [address] 2021-07-26 2021-07-26 Orders Doctor UYEN 1.2.840.114 [id number] Univers 00:00:00 00:00:00 Only Unassigned, FLASH 350.1.13.10 ity of [place] [facility] 4.2.7.2.686 Jefry as [id number] [address] 2021-07-24 2021-07-24 Abelardo Valencia NYSTEPHY 1.2.840.114 [id number] Univers 00:00:00 00:00:00 Wondiful A HEALTH 350.1.13.10 ity of [place] 4.2.7.2.686 Jefry as PROFESSIO [phone] [address] OFFICE BUILDING ONE 2021-07-13 2021-07-13 Abelardo Valencia [facility] 1.2.840.114 [id number] Univers 00:00:00 00:00:00 Wondiful A HEALTH 350.1.13.10 ity of [place] 4.2.7.2.686 Jefry as ANTHONY?BLEA [phone] Sd agustin LONG [address] [place] [address] MEDICAL OFFICE BUILDING 2021-07-13 2021-07-13 Orders Doctor QIU 1.2.840.114 [id number] Univers 00:00:00 00:00:00 Only Unassigned, FLASH 350.1.13.10 ity of [place] [facility] 4.2.7.2.686 Jefry as [phone] [address] 2021-07-09 2021-07-09 Outpatient R AKBAR VALENCIA [facility] [id number] Univers 13:30:00 13:30:00 WONDIFUL ity o f [facility] 2021-07-06 2021-07-06 Abelardo Valencia [facility] 1.2.840.114 [id number] Univers 00:00:00 00:00:00 Wondiful A HEALTH 350.1.13.10 ity of [place] 4.2.7.2.686 Jefry as PROFESSIO [phone] Sd agustin TEIXEIRA 044 [facility] ONE 2021-07-03 2021-07-03 Life Enrichment Assistant Lab, Ang - Db [facility] 1.2.840.1 14 [id number] Univers 15:30:00 15:45:00 Visit Rubi Valencia A HEALTH 350.1.13.1 0 ity of [place] 4.2.7.2.686 Jefry as ANTHONY?BLEA [id number] Sd agustin LONG [address] [facility] OFFICE [facility] 2021-07-03 2021-07-03 Outpatient [facility] [id number] Univers 15:30:00 15:30:00 WONDIFUL ity o f [facility] 2021-07-03 2021-07-03 Office [facility] 1.2.840.114 [id number] Univers 15:00:00 15:27:47 Visit Wondiful A HEALTH 350.1.13.10 ity of [place] 4.2.7.2.686 Jefry as ANTHONY?BLEA [phone] Sd agustin LONG [address] [facility] OFFICE [facility] 2021-07-03 2021-07-03 Outpatient R ANNIE [facility] [id number] Univers 15:00:00 15:27:47 WONDIFUL ity o f [facility] 2021-06-21 2021-06-21 Outpatient R FEDE [facility] [id number] Univers 14:30:00 15:13:56 BRE ity of [facility] 2021-06-21 2021-06-21 Office [facility] 1.2.553.904 [id number] Univers 14:30:00 15:13:56 Visit Bre SPECIALTY 350.1.13.10 ity of [place]2.7.2.[place] CENTER AT [phone] Sd texethan MENDEZ [address] [facility] 2021-06-21 2021-06-21 Outpatient [facility] [id number] Univers 14:30:00 15:13:56 BRE ity of [facility] 2021-06-14 2021-06-14 Outpatient R RENA ROLLINS [facility] 10 [id number] Univers 14:00:00 14:39:55 RENA ROLLINS i ty of [facility] 2021-06-14 2021-06-14 Office [facility] 1.2.840.114 [id number] Univers 14:00:00 14:39:55 Visit Rena LEACH 350.1.13.10 i ty of [place] 4.2.7.2.[place] [phone] Sd dical NAL 085 [facility] 2021-06-14 2021-06-14 Outpatient R RENA ROLLINS [facility] 10 [id number] Univers 14:00:00 14:39:55 RENA ROLLINS i ty of [facility] 2021-06-14 2021-06-14 Outpatient R RENA ROLLINS [facility] 10 [id number] Univers 14:00:00 14:00:00 RENA ROLLINS i ty of [facility] 2021-06-11 2021-06-11 Outpatient R LISHA [facility] [id number] Univers 15:00:00 15:00:00 MATEO ity of [facility] 2021-06-08 2021-06-08 [facility] [id number] Univers 00:00:00 00:00:00 Katie LEACH [id number] ity of [place] [phone] [place] dical NAL 059 [facility] 2021-06-06 2021-06-06 Refjacob Valencia [facility] [id number] Univers 00:00:00 00:00:00 Wondiful A HEALTH [id number] ity of [place] 4.2.7.2.686 Jefry as PROFESSIO [phone] Sd dical NAL 044 [place] [facility] 2021-05-31 2021-05-31 Felix Valencia [facility] [id number] Univers 00:00:00 00:00:00 Management Wondiful A HEALTH [id number] ity of [place] [id number] Jefry as ANTHONY?BLEA [phone] Sd agustin LONG [address] [place] [facility] 2021-05-28 2021-05-28 Outpatient R ANNIE [facility] [id number] Univers 14:40:00 23:59:00 WONDIFUL ity o f [facility] 2021-05-28 2021-05-28 Hospital [facility] [id number] Univers 14:40:00 23:59:00 Encounter Wondiful A HEALTH [id number] ity of [place] 4.2.7.2.686 Jefry as ANTHONY?BLEA [phone] Sd agustin LONG [address] [place] MEDICAL OFFICE [facility] 2021-05-28 2021-05-28 Life Enrichment Assistant Lab, Daniel - Wolf [facility] [id number] Univers 15:00:00 15:15:00 Visit Rubi Valencia HEALTH 350.1.13.1 0 ity of [place] 4.2.7.2.686 Jefry as ANTHONY?BLEA [phone] Sd agustin LONG [address] [place] MEDICAL OFFICE [facility] 2021-05-28 2021-05-28 [facility] 1.2.840.114 [id number] Univers 14:00:00 14:58:29 Visit Wondiful A HEALTH 350.1.13.10 ity of [place] 4.2.7.2.686 Jefry as ANTHONY?BLEA [phone] Sd agustin LONG [address] [place] MEDICAL OFFICE [facility] 2021-05-28 2021-05-28 Outpatient R ANNIE, [facility] [id number] Univers 14:40:00 14:40:00 WONDIFUL ity o f [facility] 2021-05-22 2021-05-22 [place] [facility] [id number] Univers 00:00:00 00:00:00 Shiwan [place] [id number] i ty of [place] [phone] Sd dical NAL 085 [facility] 2021-05-18 2021-05-18 Abelardo Valencia [facility] 1.2.840.114 [id number] Univers 00:00:00 00:00:00 Wondiful A HEALTH 350.1.13.10 ity of [place] 4.2.7.2.686 Jefry as ANTHONY?BLEA [phone] [facility] [address] [facility] OFFICE [facility] 2021-05-16 2021-05-16 Office Baldo [facility] 1.2.829.041 [id number] Univers 15:00:00 15:20:00 Visit Kailey LEACH 350.1.13.10 ity [facility] [place].2.[place] [facility] [phone] [address] 2021-05-16 2021-05-16 Outpatient R BALDO [facility] [id number] Univers 15:00:00 15:00:00 PEARL [facility] 2021-05-16 2021-05-16 Outpatient R BALDO [facility] [id number] Univers 15:00:00 15:00:00 [facility] 2021-05-04 2021-05-04 Life Enrichment Assistant Therapist, Adc Respiratory [facility] 1.2.840.114 [id number] Univers 12:30:00 14:00:00 Visit Floyd Man 350.1.13. 10 ity of [place].2.[place] [facility] [phone] [facility] [address] 2021-05-04 2021-05-04 Outpatient R MICKEY [facility] [id number] Univers 12:30:00 12:30:00 FLOYD villar [facility] 2021-05-04 2021-05-04 Orders PATRICIA RollinsIT 1.2.558.517 [id number] Univers 00:00:00 00:00:00 Only Shiwan Y HEALTH 350.1.13.10 i ty of CL[place].2.[place] [id number] [facility] [address] 2021-05-03 2021-05-03 Telephone Annie [facility] 1.2.840.114 [id number] Univers 00:00:00 00:00:00 Wondiful A HEALTH 350.1.13.10 ity of [place] 4.2.7.2.686 Jefry as ANTHONY?BLEA [phone] Sd dical [facility] [address] MEDICAL OFFICE [facility] 2021-05-02 2021-05-02 Case [facility] 1.2.840.114 [id number] Univers 00:00:00 00:00:00 Management Wondiful A HEALTH 350.1.13.10 ity [facility] 4.2.7.2.686 Jefry as ANTHONY?BLEA [phone] Sd dical [facility] [address] [facility] OFFICE [facility] 2021-05-01 2021-05-01 Telephone UYEN Gallo 1.2.622.031 [id number] Univers 00:00:00 00:00:00 Bárbara FLASH 350.1.13.10 it y of [facility] 4.2.7.2.686 Jefry as [phone] [facility] [address] 2021-05-01 2021-05-01 Telephone Riley [facility] 1.2.148.711 [id number] Univers 00:00:00 00:00:00 Katie Kiser [place] 350.1.13.10 ity of [place] 4.2.7.2.686 [place] PROFESSIO [phone] Sd dical NAL 059 [facility] 2021-04-30 2021-04-30 Laboratory Only, Ang Db Test [facility] 1.2.8 40.114 [id number] Univers 16:15:00 16:30:00 Only Abi Herrerashira Vestor 350.1.13.10 ity [facility] 4.2.7.2.686 Jefry as ANTHONY?BLEA [phone] [facility] [address] [facility] OFFICE [facility] 2021-04-30 2021-04-30 Outpatient R JIL [facility] [id number] Univers 16:15:00 16:15:00 OMAYEMI ity of [facility] 2021-04-23 2021-04-23 Life Enrichment Assistant Lab, Ang - Db [facility] 1.2.840.1 14 [id number] Univers 10:00:00 10:15:00 Visit Rubi Valencia A HEALTH 350.1.13.1 0 ity [facility] 4.2.7.2.686 Jefry as ANTHONY?BLEA [phone] [facility] [address] [facility] OFFICE [facility] 2021-04-23 2021-04-23 Out[facility] [id number] Univers 10:00:00 10:00:00 RUBI ity o f [facility] 2021-04-19 2021-04-19 [facility] 1.2.840.114 [id number] Univers 14:23:58 23:59:00 Encounter Katie [facility] 350.1.13.10 ity of [place] 4.2.7.2.686 [place] PROFESS[place] [phone] Sd dicia NAL 843 [facility] 2021-04-19 2021-04-19 [facility] 1.2.840.114 [id number] Univers 16:40:00 17:00:00 Care Rania HEALTH 350.1.13.10 it y of [place] 4.2.7.2.686 Jefry as ANTHONY?BLEA [phone] [facility] [address] [facility] OFFICE [facility] 2021-04-19 2021-04-19 Outpatient R RENA ROLLINS [facility] 10 [id number] Univers 13:30:00 14:23:11 RENA ROLLINS i ty of [facility] 2021-04-19 2021-04-19 [facility] 1.2.840.114 [id number] Univers 13:30:00 14:23:11 Visit Rena [place] 350.1.13.10 i ty of [place] 4.2.7.2.686 [place] PROFESSIO [phone] Sd dical NAL 085 [facility] 2021-04-19 2021-04-19 Outpatient R RENA ROLLINS [facility] 10 [id number] Univers 13:30:00 14:23:11 RENA ROLLINS i ty [facility] 2021-04-13 2021-04-13 Refjacob Valencia [facility] 1.2.840.114 [id number] Univers 00:00:00 00:00:00 Wondiful A HEALTH 350.1.13.10 ity of [place] 4.2.7.2.686 Jefry as PROFESSIO [phone] [address] ONE 2021-04-12 2021-04-12 Laboratory Only, Ang Db Test [facility] 1.2.8 40.114 [id number] Univers 17:30:00 17:45:00 Only Asaf Esposito HEALTH 350.1.13.10 ity of [place] 4.2.7.2.686 Jefry as ANTHONY?BLEA [phone] [facility] [address] [facility] OFFICE [facility] 2021-04-12 2021-04-12 Outpatient R VAIBHAV [facility] [id number] Univers 17:30:00 17:30:00 ASAF ity of [facility] 2021-04-10 2021-04-10 [facility]ill [facility] 1.2.840.114 [id number] Univers 00:00:00 00:00:00 Wondiful A HEALTH 350.1.13.10 ity of [place] 4.2.7.2.686 Jefry as PROFESSIO [phone] [address] ONE 2021-04-05 2021-04-05 Outpatient R RENA ROLLINS [facility] 10 [id number] Univers 11:00:00 11:00:00 RENA ROLLINS i [facility] 2021-04-03 2021-04-03 Case [facility] 1.2.840.114 [id number] Univers 00:00:00 00:00:00 Management Wondiful A HEALTH 350.1.13.10 ity of [place] 4.2.7.2.686 Jefry as ANTHONY?BLEA [id number] [address] OFFICE [facility] 2021-04-03 2021-04-03 Telephone Michael [facility] 1.2.842.958 [id number] Univers 00:00:00 00:00:00 Shiwan [place] 350.1.13.10 i ty of [place] 4.2.7.2.686 [place] PROFESSIO [phone] Sd dicethan NAL 085 [facility] 2021-04-02 2021-04-02 Outpatient R ANNIE [facility] [id number] Univers 17:05:00 23:59:00 WONDIFUL ity o f [facility] 2021-04-02 2021-04-02 Hospital [facility] 1.2.965.565 [id number] Univers 17:05:00 23:59:00 Encounter Wondiful A HEALTH 350.1.13.10 ity of [place] 4.2.7.2.686 Jefry as ANTHONY?BLEA [phone] [facility] [address] [facility] OFFICE [facility] 2021-04-02 2021-04-02 Office [facility] 1.2.840.114 [id number] Univers 16:15:00 17:18:41 Visit Wondiful A HEALTH 350.1.13.10 ity of [place] 4.2.7.2.686 Jefry as ANTHONY?BLEA [phone] [facility] MERCEDES [address] [facility] OFFICE [facility] 2021-04-02 2021-04-02 Outpatient R ANNIE [facility] [id number] Univers 16:15:00 17:18:41 WONDIFUL ity o f [facility] 2021-03-26 2021-03-26 Outpatient R ANNIE [facility] [id number] Univers 16:10:00 16:10:00 WONDIFUL ity o f [facility] 2021-03-26 2021-03-26 Imm/Inj Vaccine, Ang Db [facility] 1. 2.840.114 [id number] Univers 15:16:44 15:26:44 Visit Venkata Valenciajefferson Isis HEALTH 350.1.13.1 0 ity of [place] 4.2.7.2.686 Jefry as ANTHONY?BLEA [phone] [facility] [address] [facility] OFFICE [facility] 2021-03-22 2021-03-22 Telephone [facility] 1.2.903.498 [id number] Univers 00:00:00 00:00:00 Shijustin LEACH 350.1.13.10 i ty of [facility] 4.2.7.2.[place] PROF[place] [phone] Sd dical NAL 085 [facility] 2021-03-20 2021-03-20 Patient [facility] 1.2.840.114 [id number] Univers 00:00:00 00:00:00 Secure Msg Katie LEACH 350.1.13.10 ity of [facility] 4.2.7.2.[place] [phone] Sd dicia NAL 059 [facility] 2021-03-01 2021-03-01 Refill [facility] 1.2.840.114 [id number] Univers 00:00:00 00:00:00 Wondiful A [facility] 350.1.13.10 ity of [place] 4.2.7.2.686 Jefry as PROFESSIO [phone] [facility] NAL [address] OFFICE [facility] ONE 2021-02-22 2021-02-22 Outpatient R RILEY [facility] [id number] Univers 15:00:00 15:12:20 SENDIL jian of [facility] 2021-02-22 2021-02-22 Office [facility] 1.2.840.114 [id number] Univers 14:38:36 15:12:20 Visit Katie LEACH 350.1.13.10 ity of [facility] 4.2.7.2.686 [place] PROF[place] [phone] Sd dicia NAL 059 [facility] 2021-02-22 2021-02-22 Office [facility] 1.2.840.114 [id number] Univers 13:51:57 14:21:57 Visit Rena LEACH 350.1.13.10 i ty of [facility] 4.2.7.2.686 [place] [phone] Sd dical NAL 085 [facility] 2021-02-22 2021-02-22 Outpatient R RENA ROLLINS [facility] 10 [id number] Univers 14:00:00 14:00:00 RENA ROLLINS i ty [facility] 2021-02-14 2021-02-14 Office [facility] 1.2.791.341 [id number] Univers 16:11:31 16:31:31 Visit Kailey T [place] 350.1.13.10 ity of [place] 4.2.7.2.686 [place] RONNY [id number] [facility] 085 [facility] 2021-02-14 2021-02-14 Outpatient R KAILEY BLAND [facility] [id number] Univers 16:00:00 16:00:00 [facility] 2021-02-14 2021-02-14 [facility] 1.2.840.114 [id number] Univers 00:00:00 00:00:00 Wondiful A HEALTH 350.1.13.10 ity of [place] 4.2.7.2.686 Jefry as ANTHONY?BLEA [id number] [facility] [address] [facility] OFFICE [facility] 2021-02-13 2021-02-13 [facility]ill [facility] 1.2.840.114 [id number] Univers 00:00:00 00:00:00 Wondiful A HEALTH 350.1.13.10 ity of [place] 4.2.7.2.686 Jefry as ANTHONY?BLEA [id number] [address] OFFICE [facility] 2021-02-13 2021-02-13 Telephone [facility] 1.2.840.114 [id number] Univers 00:00:00 00:00:00 Wondiful A HEALTH 350.1.13.10 ity of [place] 4.2.7.2.686 Jefry as ANTHONY?BLEA [phone] [address] OFFICE [facility] 2021-02-12 2021-02-12 Telephone [facility] 1.2.840.114 [id number] Univers 00:00:00 00:00:00 Wondiful A HEALTH 350.1.13.10 ity of [place] 4.2.7.2.686 Jefry as ANTHONY?BLEA [phone] [address] MEDICAL OFFICE [facility] 2021-02-12 2021-02-12 Orders Doctor UYEN 1.2.840.114 [id number] Univers 00:00:00 00:00:00 Only Unassigned, FLASH 350.1.13.10 ity of [place] [facility] 4.2.7.2.686 Jefry as [id number] [address] 2021-02-07 2021-02-07 Outpatient R SERINA [facility] [id number] Univers 14:00:00 14:00:00 EUGENIE ity of [facility] 2021-01-17 2021-01-17 Case [facility] 1.2.840.114 [id number] Univers 00:00:00 00:00:00 Management Wondiful A Health 350.1.13.10 ity of [place] 4.2.7.2.686 Jefry as Anthony?Blea [id number] [address] Medical Office [facility] 2021-01-12 2021-01-12 Life Enrichment Assistant Lab, Ang - [facility] 1.2.840.1 14 [id number] Univers 16:41:01 16:50:21 Visit Rubi Valencia Health 350.1.13.1 0 ity of [place] 4.2.7.2.686 Jefry as Anthony?Blea [phone] [facility] 353 [facility] Office [facility] 2021-01-12 2021-01-12 Office Annie [facility] 1.2.840.114 [id number] Univers 15:47:11 16:41:07 Visit Wondiful A Health 350.1.13.10 ity of [place] 4.2.7.2.686 Jefry as Anthony?Blea [phone] [address] Office [facility] 2021-01-12 2021-01-12 Outpatient R ANNIE [facility] [id number] Univers 15:45:00 15:45:00 WONDIFUL ity o f [facility] 2021-01-12 2021-01-12 Telephone Annie [facility] 1.2.840.114 [id number] Univers 00:00:00 00:00:00 Wondiful A Health 350.1.13.10 ity of [place] 4.2.7.2.686 Jefry as Anthony?Blea [id number] [facility] mercedes 044 [facility] Office [facility] 2021-01-04 2021-01-04 Office [facility] 1.2.840.114 [id number] Univers 14:22:18 15:13:46 Visit Rena Leach 350.1.13.10 i ty of [place] 4.2.7.2.686 [place] [facility] [phone] [facility] 085 [facility] 2021-01-04 2021-01-04 Office [facility] 1.2.840.114 [id number] Univers 10:55:41 11:54:08 Visit Wondiful A Health 350.1.13.10 ity of [place] 4.2.7.2.686 Jefry as Anthony?Blea [phone] [address] Office [facility] 2021-01-04 2021-01-04 Outpatient Bryan VALENCIA [facility] [id number] Univers 11:00:00 11:00:00 WONDIFUL ity o f [facility] 2021-01-01 2021-01-01 [facility] 1.2.840.114 [id number] Univers 12:28:10 23:59:00 Encounter Herb Haylee 350.1.13.10 ity of [place] 4.2.7.2.686 [place] [phone] [facility] [address] 2021-01-01 2021-01-01 Outpatient Bryan COREY [facility] [id number] Univers 00:00:00 00:00:00 HERB villar [facility] 2020-12-27 2020-12-27 [facility] [id number] Univers 09:00:00 09:00:00 HERB villar [facility] 2020-12-26 2020-12-26 Outpatient Bryan VALENCIA [facility] [id number] Univers 11:00:00 11:00:00 WONDIFUL ity o f [facility] 2020-12-22 2020-12-23 Emergency Ibterezaunle, [facility] 1.2.840.114 [id number] Univers 17:37:00 00:24:00 Charles Leach 350.1.13.10 ity of [place] 4.2.7.2.686 [place] [id number] [facility] [address] 2020-12-22 2020-12-22 Letter UYEN Loomis 1.2.840.114 [id number] Univers 00:00:00 00:00:00 (Out) Leticia VIDALES 350.1.13.10 it y of [facility] 4.2.7.2.686 Jefry as [phone] [facility] [address] 2020-12-22 2020-12-22 Orders Doctor UYEN 1.2.840.114 [id number] Univers 00:00:00 00:00:00 Only Unassigned, FLASH 350.1.13.10 ity of [place] [facility] 4.2.7.2.686 Jefry as [phone] [facility] [address] 2020-12-21 2020-12-21 Laboratory Only, Ang Db Test [facility] 1.2.8 40.114 [id number] Univers 11:05:53 11:15:53 Only Vaibhav [facility] 350.1.13.10 ity of [place] 4.2.7.2.686 Jefry as Anthony?Blea [phone] [address] Medical Office Building 2020-12-21 2020-12-21 Outpatient R [facility] [id number] Univers 11:00:00 11:00:00 ity of [facility] 2020-12-19 2020-12-19 Nurse Therapy, Adc Covid Infusion [facility] 1.2.840.114 [id number] Univers 15:00:21 16:00:21 Visit Pal Cortes 350.1.13.10 ity of [place] 4.2.7.2.686 [place] [facility] [phone] [facility] [address] 2020-12-19 2020-12-19 Outpatient R [facility] [id number] Univers 15:00:00 15:00:00 ity of [facility] 2020-12-19 2020-12-19 Orders Doctor UYEN 1.2.840.114 [id number] Univers 00:00:00 00:00:00 Only Unassigned, FLASH 350.1.13.10 ity of [place] [facility] 4.2.7.2.686 Jefry as [id number] [address] 2020-12-15 2020-12-15 Refill [facility] 1.2.840.114 [id number] Univers 00:00:00 00:00:00 Wondiful A Health 350.1.13.10 ity of [place] 4.2.7.2.686 Jefry as Anthony?Blea [id number] [address] Office [facility] 2020-12-15 2020-12-15 Refill [facility] 1.2.840.114 [id number] Univers 00:00:00 00:00:00 Wondiful A Health 350.1.13.10 ity of [place] 4.2.7.2.686 Jefry as Anthony?Blea [phone] [address] Office [facility] 2020-12-15 2020-12-15 Refill [facility] 1.2.840.114 [id number] Univers 00:00:00 00:00:00 Wondiful A Health 350.1.13.10 ity of [place] 4.2.7.2.686 Jefry as Anthony?Blea [id number] [address] Office [facility] 2020-12-14 2020-12-14 Patient [facility] 1.2.840.114 [id number] Univers 00:00:00 00:00:00 Secure Msg Wondiful A Health 350.1.13.10 ity of [place] 4.2.7.2.686 Jefry as Anthony?Blea [phone] [address] Office [facility] 2020-12-13 2020-12-13 Telephone [facility] 1.2.840.114 [id number] Univers 00:00:00 00:00:00 Wondiful A Health 350.1.13.10 ity of [place] 4.2.7.2.686 Jefry as Anthony?Blea [phone] [facility] [address] Medical Office [facility] 2020-12-12 2020-12-12 Letter UYEN Lino 1.2.840.114 [id number] Univers 00:00:00 00:00:00 (Out) Mark VIDALES 350.1.13.10 i ty of [facility] 4.2.7.2.686 Jefry as [phone] [facility] [address] 2020-12-11 2020-12-11 Laboratory Only, Ang Db Test [facility] 1.2.8 40.114 [id number] Univers 14:46:30 14:56:30 Only Samuel Rissa [facility] 350.1.13.10 ity of [place] 4.2.7.2.686 Jefry as Anthony?Blea [phone] [facility] 370 [facility] Office [facility] 2020-12-11 2020-12-11 Outpatient R SAMUEL [facility] [id number] Univers 14:45:00 14:45:00 RISSA ity of [facility] 2020-12-08 2020-12-08 Emergency Leo [facility] 1.2.170.650 [id number] Univers 18:59:00 22:56:00 Yonathan Leach 350.1.13.10 i ty of [place] 4.2.7.2.686 [place] [phone] [place] [address] [place] 2020-12-08 2020-12-08 Telephone Annie [facility] 1.2.840.114 [id number] Univers 00:00:00 00:00:00 Wondiful A Health 350.1.13.10 ity of [place] 4.2.7.2.686 Jefry as Anthony?Blea [phone] [facility] 044 [facility] Office [facility] 2020-11-28 2020-11-28 Outpatient R ANNIE [facility] [id number] Univers 16:15:00 16:15:00 WONDIFUL ity o f [facility] 2020-11-17 2020-11-17 [facility]phone [facility] 1.2.840.114 [id number] Univers 00:00:00 00:00:00 Wondiful A Health 350.1.13.10 ity of [place] 4.2.7.2.686 Jefry as Professio [phone] Sd dical nal [address] [place] [address] Office Building One 2020-11-16 2020-11-16 Laboratory Lab, Adc Fam Pob I [facility] 1.2. 840.114 [id number] Univers 17:08:41 17:28:41 Only Asaf Esposito Health 350.1.13.10 ity of [place] 4.2.7.2.686 Jefry as Professio [phone] Sd dicia nal [address] [place] [address] Building One 2020-11-16 2020-11-16 Outpatient R VAIBHAV [facility] [id number] Univers 17:00:00 17:00:00 ASAF ity of [facility] 2020-11-01 2020-11-01 Office Serina [facility] 1.2.840.114 [id number] Univers 13:42:49 14:32:22 Visit Eugenie [facility] 350.1.13.10 ity of [place] BACONJose Manuel 4.2.7.2.686 [place] [facility] [phone] [address] [facility] 2020-11-01 2020-11-01 Outpatient R SERINA [facility] [id number] Univers 13:40:00 13:40:00 EUGENIE itjose manuel of [facility] 2020-10-25 2020-10-25 Case Annie [facility] 1.2.840.114 [id number] Univers 00:00:00 00:00:00 Management Wondiful A Health 350.1.13.10 ity of [place] 4.2.7.2.686 Jefry as Professio [phone] Sd dicia nal [address] [place] [address] Office Building One 2020-10-20 2020-10-20 Telephone Annie NYSTEPHY 1.2.840.114 [id number] Univers 00:00:00 00:00:00 Wondiful A Health 350.1.13.10 ity of [place] 4.2.7.2.686 Jefry as Professio [phone] [address] One 2020-10-19 2020-10-19 Life Enrichment Assistant Lab, Adc Fam Pob I [facility] 1.2. 840.114 [id number] Univers 14:41:14 14:53:42 Visit Rubi Valencia [facility] 350.1.13.1 0 ity of [place] 4.2.7.2.686 Jefry as Professio [phone] [address] One 2020-10-19 2020-10-19 Office Annie [facility] 1.2.840.114 [id number] Univers 14:03:53 14:40:20 Visit Wondiful A Health 350.1.13.10 ity of [place] 4.2.7.2.686 Jefry as Professio [phone] [address] One 2020-10-19 2020-10-19 Outpatient R ANNIE [facility] [id number] Univers 14:00:00 14:00:00 WONDIFUL ity o f [facility] 2020-10-13 2020-10-13 Outpatient R IDRIS [facility] [id number] Univers 00:00:00 00:00:00 ROXY ity [facility] 2020-10-12 2020-10-12 [facility] 1.2.840.114 [id number] Univers 13:00:00 23:59:00 Encounter Roxy M [place] 350.1.13.10 ity of [place] 4.2.7.2.686 [place] [facility] [phone] [address] 2020-10-12 2020-10-12 Outpatient R IDRIS [facility] [id number] Univers 00:00:00 00:00:00 ROXY ity of [facility] [place] 2020-10-12 2020-10-12 [facility] 1.2.840.114 [id number] Univers 00:00:00 00:00:00 Wondiful [facility] [id number] ity of [place] 4.2.7.2.686 Jefry as Professio [phone] [address] 2020-10-09 2020-10-09 Orders Doctor UYEN 1.2.840.114 [id number] Univers 00:00:00 00:00:00 Only Unassigned, FLASH [id number] ity of [place] [facility] 4.2.7.2.686 Jefry as [phone] [address] 2020-09-14 2020-09-14 Documentat Gregory Pollock 1.2.840.1 [id number] Methodi 00:00:00 00:00:[address] 3.430.2.7 Hospit a .3.428576 l .8 2020-09-05 2020-09-05 Pre Visit Annie [facility] 1.2.840.114 [id number] Univers 00:00:00 00:00:00 Outreach Wondiful [facility] 350.1.13.10 ity of [place] 4.2.7.2.686 Jefry as Professio [phone] [address] Office [facility] 2020-09-01 2020-09-01 Orders Doctor UYEN 1.2.840.114 [id number] Univers 00:00:00 00:00:00 Only Unassigned, FLASH 350.1.13.10 ity of [place] [facility] 4.2.7.2.686 Jefry as [phone] [address] 2020-08-25 2020-08-25 Refill Annie [facility] 1.2.840.114 [id number] Univers 00:00:00 00:00:00 Wondiful [facility] 350.1.13.10 ity of [place] 4.2.7.2.686 Jefry as Professio [phone] [facility] nal [address] [place] [address] Office [facility] 2020-08-24 2020-08-24 Office Annie [facility] 1.2.840.114 [id number] Univers 15:20:35 16:43:28 Visit W[facility]iful [facility] 350.1.13.10 ity of [place] 4.2.7.2.686 Jefry as Professio [phone] Me dic[address] Office [facility] 2020-08-24 2020-08-24 Outpatient R ANNIE [facility] [id number] Univers 15:00:00 15:00:00 WONDIFUL ity o f [facility] [place] 2020-08-21 2020-08-21 Orders Doctor UYEN 1.2.840.114 [id number] Univers 00:00:00 00:00:00 Only Unassigned, FLASH 350.1.13.10 ity of [place] [facility] 4.2.7.2.686 Jefry as [phone] [address] 2020-08-10 2020-08-10 Telephone Annie [facility] 1.2.840.114 [id number] 00:00:00 00:00:00 Wondiful A Health 350.1.13.10 [place] 4.2.7.2.686 Professio [phone] [place] [address] Office [facility] One 2020-08-10 2020-08-10 Telephone Annie [facility] 1.2.840.114 [id number] Univers 00:00:00 00:00:00 Wondiful A Health 350.1.13.10 ity of [place] 4.2.7.2.686 Jefry as Professio [phone] Sd dical [address] Office [facility] One 2020-08-09 2020-08-09 [facility] 1.2.840.114 [id number] 00:00:00 00:00:00 Wondiful A Health 350.1.13.10 [place] 4.2.7.2.686 Professio [phone] [place] [address] Office Building One 2020-08-09 2020-08-09 Refill Annie [facility] 1.2.840.114 [id number] 00:00:00 00:00:00 Wondiful A Health 350.1.13.10 [place] 4.2.7.2.686 Professio [phone] [place] [address] Office [facility] One 2020-08-09 2020-08-09 Refjacob Valencia [facility] 1.2.840.114 [id number] Univers 00:00:00 00:00:00 Wondiful A Health 350.1.13.10 ity of [place] 4.2.7.2.686 Jefry as Professio [phone] [address] Office [facility] One 2020-08-09 2020-08-09 Abelardo [facility] 1.2.840.114 [id number] Univers 00:00:00 00:00:00 Wondiful A Health 350.1.13.10 ity of [place] 4.2.7.2.686 Jefry as Professio [phone] [address] Office [facility] One 2020-07-27 2020-07-27 Life Enrichment Assistant Lab, Adc Fam Pob I [facility] 1.2. 840.114 [id number] Univers 09:44:54 10:04:54 Visit Raz Tineo Health 350.1.13.10 ity of [place] 4.2.7.2.686 Jefry as Professio [phone] [address] Office [facility] One 2020-07-27 2020-07-27 Office [facility] 1.2.840.114 [id number] 09:07:34 09:44:01 Visit Raz Health 350.1.13.10 [place] 4.2.7.2.686 Professio [phone] [place] [address] Office [facility] One 2020-07-27 2020-07-27 Office [facility] 1.2.840.114 [id number] [facility] 09:07:34 09:44:01 Visit Raz Health 350.1.13.10 it y of [place] 4.2.7.2.686 Jefry as Professio [phone] [address] Office [facility] One 2020-07-27 2020-07-27 Outpatient R RIVKA [facility] [id number] Univers 09:00:00 09:00:00 RAZ ity of [facility] 2020-07-24 2020-07-24 Outpatient Bryan VALENCIA [facility] [id number] Univers 14:00:00 14:00:00 WONDIFUL ity o f [facility] 2020-07-21 2020-07-21 Outpatient Bryan VALENCIA [facility] [id number] Univers 15:45:00 15:45:00 WONDIFUL ity o f [facility] 2020-07-21 2020-07-21 Patient [facility] 1.2.840.114 [id number] Univers 00:00:00 00:00:00 Secure Msg Wondiful A Health 350.1.13.10 ity of [place] 4.2.7.2.686 Jefry as Professio [phone] [address] Office Building One 2020-07-20 2020-07-20 Outpatient R ANNIE [facility] [id number] Univers 11:15:00 11:15:00 WONDIFUL ity o f [facility] 2020-06-27 2020-06-27 Outpatient R ANNIE [facility] [id number] Univers 08:00:00 08:00:00 WONDIFUL ity o f [facility] 2020-06-14 2020-06-14 Outpatient R RADIOLOGY [facility] [id number] Univers 00:00:00 00:00:00 ity [facility] 2020-06-13 2020-06-13 Outpatient R MELISSA [facility] [id number] Univers 12:10:00 12:10:00 [facility] 2020-[facility] 2020-05-26 Outpatient R ANNIE [facility] [id number] Univers 15:00:00 15:00:00 WONDIFUL ity o f [facility] 2020-05-23 2020-05-23 Outpatient R IDRIS [facility] [id number] Univers 14:15:00 14:15:00 ROXY ity [facility] 2020-05-22 2020-05-22 Telephone [facility] 1.2.840.114 [id number] Univers 00:00:00 00:00:00 Wondiful A Health 350.1.13.10 ity of [place] 4.2.7.2.686 Jefry as Professio [phone] [address] Office Building One 2020-05-16 2020-05-16 Outpatient R MELISSA [facility] [id number] Univers 12:10:00 12:10:00 ALEXSANDER ity of [facility] 2020-05-12 2020-05-12 Orders Doctor UYEN 1.2.840.114 [id number] Univers 00:00:00 00:00:00 Only Unassigned, FLASH 350.1.13.10 ity of [place] [facility] 4.2.7.2.686 Jefry as [phone] [facility] [address] [place] 2020-05-11 2020-05-11 Telephone Baldo [facility] 1.2.840.114 [id number] Univers 00:00:00 00:00:00 Strahil T [place] 350.1.13.10 ity of [place].2.[place] [phone] [address] 2020-05-03 2020-05-03 Office [facility] 1.2.819.109 [id number] Univers 13:10:44 13:40:44 Visit Straval Raciel [place] 350.1.13.10 ity of [place] 4.2.7.2.686 [place] Profess[place] [phone] Sd dic[address] 2020-05-03 2020-05-03 Outpatient R KAILEY BLAND [facility] [id number] Univers 13:30:00 13:30:00 PARTHTRISTANCAMPOS BARRETTL ity of [facility] 2020-05-02 2020-05-02 Hospital Radiology [facility] 1.2.840.114 [id number] Univers 13:00:00 23:59:00 Encounter [place] 350.1.13.10 ity of [place] 4.2.7.2.686 [place] [phone] [facility] [address] [place] 2020-05-02 2020-05-02 Outpatient R RADIOLOGY [facility] [id number] Univers 00:00:00 00:00:00 ity of [facility] 2020-05-02 2020-05-02 Orders Doctor QIU 1.2.840.114 [id number] Univers 00:00:00 00:00:00 Only Unassigned, FLASH 350.1.13.10 ity of [place] [facility] 4.2.7.2.686 Jefry as [phone] [address] 2020-04-26 2020-04-26 Telephone Baldo [facility] 1.2.840.114 [id number] Univers 00:00:00 00:00:00 Strahil T [place] 350.1.13.10 ity of [place] 4.2.7.2.[place] Profess[place] [phone] [facility] 085 [facility] 2020-04-13 2020-04-13 Life Enrichment Assistant Cornel, Adc Lab Main [facility] 1.2.8 40.114 [id number] Univers 16:39:54 16:54:54 Visit Rubi Valencia A [place] 350.1.13. 10 ity of [place] 4.2.7.2.686 [place] Profess[place] [phone] [facility] 353 [facility] 2020-04-13 2020-04-13 Office [facility] 1.2.840.114 [id number] Univers 15:41:32 16:28:49 Visit Wondiful A Health 350.1.13.10 ity of [place] 4.2.7.2.686 Jefry as Professio [phone] [facility] 044 [facility] 2020-04-13 2020-04-13 Outpatient R ANNIE [facility] [id number] Univers 15:45:00 15:45:00 WONDIFUL ity o f [facility] 2020-04-13 2020-04-13 Orders Doctor UYEN 1.2.840.114 [id number] Univers 00:00:00 00:00:00 Only Unassigned, FLASH 350.1.13.10 ity of [place] [facility]PITAL 4.2.7.2.686 Jefry as [phone] [address] 2020-04-05 2020-04-05 [facility] 1.2.840.114 [id number] Univers 00:00:00 00:00:00 Wondiful A Health 350.1.13.10 ity of [place] 4.2.7.2.686 Jefry as Professio [phone] Me dic[address] Office [facility] 2020-04-04 2020-04-04 Emergency Daniel Mina [facility] 1.2.840.114 [id number] Univers 17:35:00 22:35:00 T [place] 350.1.13.10 i ty of [place] 4.2.7.2.686 [place] [phone] [address] 2020-04-04 2020-04-04 Nurse Nurse, [facility] 1.2 .840.114 [id number] Univers 17:42:16 17:44:25 Visit Jony Roy [facility] 350.1.13.10 ity of [place] 4.2.7.2.686 Jefry as Professio [phone] [address] 2020-04-04 2020-04-04 Outpatient R SHREYA, [facility] [id number] Univers 17:20:00 17:20:00 TRACY richards f [facility] 2020-03-24 2020-03-24 Telephone [facility] 1.840.114 [id number] Univers 00:00:00 00:00:00 Wondiful A Health 350.1.13.10 ity of [place] 4.2.7.2.686 Jefry as Professio [phone] [address] 2020-03-21 2020-03-21 Outpatient R RIVKA, [facility] [id number] Univers 14:20:00 14:20:00 RAZ ity of [facility] 2020-03-21 2020-03-21 Telephone [facility] 1.840.114 [id number] Univers 00:00:00 00:00:00 Wondiful A Health 350.1.13.10 ity of [place] 4.2.7.2.686 Jefry as Professio [phone] [address] Office [facility] 2020-03-06 2020-03-06 Telephone [facility] 1..840.114 [id number] Univers 00:00:00 00:00:00 Wondiful A Health 350.1.13.10 ity of [place] 4.2.7.2.686 Jefry as Professio [phone] [address] Office Building One 2020-03-06 2020-03-06 Telephone Annie [facility] 1.2.840.114 [id number] Univers 00:00:00 00:00:00 Wondiful A Health 350.1.13.10 ity of [place] 4.2.7.2.686 Jefry as Professio [phone] [address] Office Building One 2020-03-01 2020-03-01 Refill Annie, [facility] 1.2.840.114 [id number] Univers 00:00:00 00:00:00 Wondiful A Health 350.1.13.10 ity of [place] 4.2.7.2.686 Jefry as Professio [phone] [address] Office [facility] One 2020-03-01 2020-03-01 Refill Annie, [facility] 1.2.840.114 [id number] Univers 00:00:00 00:00:00 Wondiful A Health 350.1.13.10 ity of [place] 4.2.7.2.686 Jefry as Professio [phone] [address] Office [facility] One 2020-03-01 2020-03-01 Patient Annie [facility] 1.2.840.114 [id number] Univers 00:00:00 00:00:00 Secure Msg Wondiful A Health 350.1.13.10 ity of [place] 4.2.7.2.686 [place]efry as Professio [phone] [address] Office Building One 2020-03-01 2020-03-01 Refill Doctor [facility] 1.2.840.114 [id number] Univers 00:00:00 00:00:00 Unassigned, Health 350.1.13.10 ity of [place] 4.2.7.2.686 Jefry as Professio [phone] [address] Office [facility] One 2020-02-25 2020-02-25 Hospital Radiology [facility] 1.2.840.114 [id number] Univers 11:00:00 23:59:00 Encounter [place] 350.1.13.10 ity of [place].7.2.686 [place] [phone] [facility] [address] 2020-02-25 2020-02-25 Outpatient R RADIOLOGY [facility] [id number] Univers 00:00:00 00:00:00 ity of [facility] 2020-02-25 2020-02-25 Orders Doctor UYEN 1.2.840.114 [id number] Univers 00:00:00 00:00:00 Only Unassigned, FLASH 350.1.13.10 [facility] 4.2.7.2.686 Jefry as [phone] [facility] [address] 2020-02-22 2020-02-22 Outpatient R ANNIE [facility] [id number] Univers 16:15:00 16:15:00 WONDIFUL ity o f [facility] 2020-02-03 2020-02-03 [facility] 1.2.840.114 [id number] Univers 00:00:00 00:00:00 Wondiful A Health 350.1.13.10 ity of [place] 4.2.7.2.686 Jefry as Professio [phone] [address] Office [facility] 2020-02-02 2020-02-02 Lon[facility] 1.2.840.114 [id number] Univers 00:00:00 00:00:00 Wondiful A Health 350.1.13.10 ity of [place] 4.2.7.2.686 Jefry as Professio [phone] [address] Office [facility] 2020-02-02 2020-02-02 [facility]phone [facility] 1.2.840.114 [id number] Univers 00:00:00 00:00:00 Wondiful A Health 350.1.13.10 ity of [place] 4.2.7.2.686 Jefry as Professio [phone] [address] Office [facility] 2020-02-01 2020-02-01 Urgent Provider, Daniel [facility] 1.2.840.114 [id number] Univers 19:16:44 20:07:25 Care Venkata Valenciaful A Health 350.1.13.1 0 ity of [place] 4.2.7.2.686 [place] as Professio [phone] [address] Office [facility] 2020-02-01 2020-02-01 Outpatient R ANNIE [facility] [id number] Univers 19:40:00 19:40:00 WONDIFUL ity o f [facility] 2020-01-20 2020-01-20 Orders Doctor UEYN 1.2.840.114 [id number] Univers 00:00:00 00:00:00 Only Unassigned, FLASH 350.1.13.10 ity of [place] [facility] 4.2.7.2.686 Jefry as [phone] [facility] [address] [place] 2020-01-13 2020-01-16 Office Annie [facility] 1.2.840.114 [id number] Univers 13:17:43 23:46:34 Visit Wondiful A Health 350.1.13.10 ity of [place] 4.2.7.2.686 Jefry as Professio [phone] [address] Office [facility] 2020-01-13 2020-01-13 Life Enrichment Assistant Lab, Adc Fam Pob I [facility] 1.2. 840.114 [id number] Univers 14:01:56 14:14:40 Visit Rubi Valencia Health 350.1.13.1 0 ity of [place] 4.2.7.2.686 Jefry as Professio [phone] [address] 2020-01-13 2020-01-13 Outpatient R ANNIE [facility] [id number] Univers 13:15:00 13:15:00 WONDIFUL ity o f [facility] 2020-01-06 2020-01-06 Outpatient GREGORY POLLOCK [facility] [id number] [place] 00:00:00 00:00:[address] 2019-12-16 2019-12-16 Emergency [facility] 1.2.165.386 [id number] Univers 17:19:00 19:27:00 Nayana R [place] 350.1.13.10 i ty of [place] 4.2.7.2.686 [place] [phone] [facility] [address] [place] 2019-12-15 2019-12-15 Outpatient VELIA RIDDLE MDA MDA [id number] 14:28:05 14:28:05 YENIFER ackerman 2019-12-15 2019-12-15 Outpatient VELIA RIDDLE MDA MDA [id number] 13:59:53 14:11:39 YENIFER ackerman 2019-12-10 2019-12-10 Orders Doctor QIU 1.2.840.114 [id number] 00:00:00 00:00:00 Only Unassigned, FLASH 350.1.13.10 ity of [facility] 4.2.7.2.686 Jefry as [phone] [facility] [address] [place] 2019-12-08 2019-12-08 Outpatient VELIA RIDDLE MDA MDA [id number] 00:00:00 00:00:00 YENIFER ackerman 2019-12-07 2019-12-07 [facility] 1.2.840.114 [id number] Univers 00:00:00 00:00:00 Wondiful A [place] 350.1.13.10 ity of [place] 4.2.7.2.[place] [phone] Sd dic[address] 2019-12-02 2019-12-02 Outpatient GREGORY POLLOCK [facility] [id number] [place] 00:00:00 00:00:00 [address] 2019-12-02 2019-12-02 Outpatient GREGORY POLLOCK [facility] [id number] [place] 00:00:00 00:00:[address] 2019-11-30 2019-11-30 [facility]ill [facility] 1.2.840.114 [id number] [facility] 00:00:00 00:00:00 Wondiful A Health 350.1.13.10 ity of [place] 4.2.7.2.686 Jefry as Professio [phone] Sd dicia nal [address] [place] Office Building One 2019-11-24 2019-11-24 Outpatient R ANNIE [facility] [id number] 9087 [facility] 10:30:00 10:30:00 WONDIFUL ity o f [facility] 2019-11-24 2019-11-24 Life Enrichment Assistant 2, Adc Lab [facility] 1.2.840.114 [id number] Univers 08:15:09 08:30:09 Visit Rubi Valencia A [place] 350.1.13. 10 ity of [place] 4.2.7.2.[place] Profess[place] [phone] [facility] 353 [facility] 2019-11-23 2019-11-23 Office [facility] 1.2.840.114 [id number] Univers 16:19:16 16:56:30 Visit Wondiful A [place] 350.1.13.10 ity of [place] 4.2.7.2.[place] Profess[place] [phone] [facility] 044 [facility] 2019-11-23 2019-11-23 Outpatient R ANNIE [facility] [id number] Univers 16:15:00 16:15:00 WONDIFUL ity o f [facility] 2019 2019 Outpatient GREGORY POLLOCK [facility] [id number] [place] 00:00:00 00:00:[address] 2019-11-04 2019-11-04 [facility]ill [facility] 1.2.840.114 [id number] [facility] 00:00:00 00:00:00 Wondiful A Health 350.1.13.10 ity of [place] 4.2.7.2.686 Jefry as Professio [phone] [address] 2019-11-04 2019-11-04 [facility]phone [facility] 1.2.840.114 [id number] Univers 00:00:00 00:00:00 Wondiful A Health 350.1.13.10 ity of [place] 4.2.7.2.686 Jefry as Professio [phone] [address] 2019-11-03 2019-11-03 Outpatient VELIA RIDDLE MDA MDA [id number] 00:00:00 00:00:00 YENIFER ackerman 2019-11-02 2019-11-02 Outpatient VELIA RIDDLE MDA MDA [id number] 11:04:49 11:04:49 YENIFER Carpio o n 2019-11-01 2019-11-01 Orders Doctor UYEN 1.2.840.114 [id number] 00:00:00 00:00:00 Only Unassigned, FLASH 350.1.13.10 ity of [facility] 4.2.7.2.686 Jefry as [phone] [address] 2019-10-27 2019-10-28 Outpatient EL MUSUNURU, MDA MDA [id number] 14:04:02 09:59:15 YENIFER Balaji o n 2019-10-20 2019-10-20 Outpatient EL MUSUNURU, MDA MDA [id number] 00:00:00 00:00:00 YENIFER Balaji o tyron 2019-10-19 2019-10-19 Outpatient EL MUSUNURU, MDA MDA [id number] 14:01:57 16:41:09 YENIFER Mojicaers o tyron 2019-10-13 2019-10-13 Outpatient EL MUSUNURU, MDA MDA [id number] 11:38:55 14:16:11 YENIFER Carpio o n 2019-10-07 2019-10-07 [facility] 1.2.840.114 [id number] Univers 00:00:00 00:00:00 Wondiful A Health 350.1.13.10 ity [facility] 4.2.7.2.686 Jefry as Ronny [phone] [address] Office Building One 2019-10-06 2019-10-06 Outpatient Bryan ESPOSITO [facility] [id number] Univers 18:00:00 18:00:00 ASAF ity [facility] 2019-10-06 2019-10-06 Outpatient EL MUSUNURU, MDA MDA [id number] 16:51:52 16:56:40 YENIFER Carpio o tyron 2019-10-06 2019-10-06 Outpatient EL MUSUNURU, MDA MDA [id number] 15:28:24 15:28:24 YENIFER Carpio o tyron 2019-10-05 2019-10-05 [facility] 1.2.840.114 [id number] Univers 00:00:00 00:00:00 Wondiful A Health 350.1.13.10 ity of [place] 4.2.7.2.686 Jefry as Ronny [phone] [facility]d [facility] [address] [place] Office Building One 2019-10-04 2019-10-04 Outpatient VELIA RIDDLE MDA [facility] [id number] 14:45:10 14:47:15 YENIFER ackerman 2019-09-29 2019-09-29 Outpatient R [facility] [id number] Univers 14:47:22 23:59:00 CHELITA richards f [facility] 2019-09-29 2019-09-29 [facility] 1.2.667.738 [id number] Univers 14:47:00 23:59:00 Encounter Chelita Leach 350.1.13.10 ity of [facility] 4.2.7.2.686 [place] [facility] [phone] [address] 2019-09-27 2019-09-27 Office [facility] 1.2.840.114 [id number] Univers 13:11:52 13:41:52 Visit Chelita DOUGLAS 350.1.13.10 ity of [facility] [place].2.[place] [phone] [address] 2019-09-27 2019-09-27 Outpatient R [facility] [id number] Univers 13:15:00 13:15:00 CHELITA ortiz [facility] 2019-09-27 2019-09-27 Orders Doctor UYEN 1.2.840.114 [id number] Univers 00:00:00 00:00:00 Only Unassigned, FLASH 350.1.13.10 ity of [place] [facility] 4.2.7.2.686 Jefry as [phone] [address] 2019-09-21 2019-09-21 Orders Doctor UYEN 1.2.840.114 [id number] Univers 00:00:00 00:00:00 Only Unassigned, FLASH 350.1.13.10 ity of [place] [facility] 4.2.7.2.686 Jefry as [phone] [address] 2019-09-20 2019-09-20 Patient Doctor UYEN 1.2.840.114 [id number] Univers 00:00:00 00:00:00 Secure Msg Unassigned, FLASH 350.1.13.10 ity of [facility] 4.2.7.2.686 Jefry as [phone] [address] 2019-09-16 2019-09-16 [facility]phone [facility] 1.2.840.114 [id number] Univers 00:00:00 00:00:00 Wondiful A Health 350.1.13.10 ity of [place] 4.2.7.2.686 Jefry as Professio [phone] [address] Office Building One 2019-09-13 2019-09-13 Outpatient R ANNIE [facility] [id number] Univers 15:32:34 23:59:00 WONDIFUL ity o f [facility] 2019-09-13 2019-09-13 Outpatient R ANNIE [facility] [id number] Univers 00:00:00 00:00:00 WONDIFUL ity o f [facility] 2019-09-09 2019-09-09 Telephone [facility] 1.2.840.114 [id number] Univers 00:00:00 00:00:00 Wondiful A [place] 350.1.13.10 ity of [place].2.[place] [phone] [address] 2019-09-09 2019-09-09 Patient [facility] 1.2.840.114 [id number] Univers 00:00:00 00:00:00 Secure Msg Wondiful A [place] 350.1.13.10 ity of [place] 4[place]2.7.2.[place] [phone] [address] 2019-09-08 2019-09-08 Case [facility] 1.2.840.114 [id number] Univers 00:00:00 00:00:00 Management Wondiful A [place] 350.1.13.10 ity of [place].2.[place] [phone] Me dical nal [address] [place] [address] 2019-09-08 2019-09-08 Telephone Annie [facility] 1..840.114 [id number] Univers 00:00:00 00:00:00 Wondiful A [place] 350.1.13.10 [place] [phone] [address] 2019-09-08 2019-09-08 [facility]phone [facility] 1.2.840.114 [id number] Univers 00:00:00 00:00:00 Wondiful A Health 350.1.13.10 ity of [place] 4.2.7.2.686 Jefry as Professio [phone] [address] Office [facility] 2019-09-07 2019-09-07 Life Enrichment Assistant 2, Adc Lab [facility] 1..840.114 [id number] Univers 16:06:15 16:21:15 Visit Rubi Valencia A [place] 350.1.13. 10 [place] [phone] [facility] [address] [facility] 2019-09-07 2019-09-07 Office Annie [facility] 1..840.114 [id number] Univers 15:10:42 16:02:12 Visit Wondiful A [place] 350.1.13.10 [place] 4[place] Profess[place] [phone] [address] 2019-09-07 2019-09-07 Outpatient R ANNIE [facility] [id number] Univers 15:30:00 15:30:00 WONDIFUL ity o f [facility] 2019-09-07 2019-09-07 Telephone Annie [facility] 1.2.840.114 [id number] Univers 00:00:00 00:00:00 Wondiful A [place] 350.1.13.10 [place] [phone] [address] 2019-09-07 2019-09-07 Orders Doctor QIU 1.2.840.114 [id number] Univers 00:00:00 00:00:00 Only Unassigned, FLASH 350.1.13.10 ity of [place] [facility] 4.2.7.2.686 Jefry as [phone] [address] 2019-09-02 2019-09-02 [facility] 1.2.840.114 [id number] Univers 00:00:00 00:00:00 Wondiful A [place] 350.1.13.10 [place] 4[place] [phone] [address] 2019-08-31 2019-08-31 [place] [facility] 1.2.840.114 [id number] Univers 00:00:00 00:00:00 Wondiful A Health 350.1.13.10 ity of [place] 4.2.7.2.686 Jefry as Professio [phone] [address] Office [facility] 2019-08-16 2019-08-16 [place] [facility] 1.2.840.114 [id number] Univers 00:00:00 00:00:00 [facility] A [facility] 350.1.13.10 ity of [place] 4.2.7.2.686 Jefry as Professio [phone] [address] Office [facility] 2019-08-16 2019-08-16 [place] [facility] 1.2.840.114 [id number] Univers 00:00:00 00:00:00 Wondiful A [place] 350.1.13.10 it[place] [phone] [address] 2019-08-09 2019-08-09 Outpatient R ANNIE [facility] [id number] Univers 10:15:00 10:15:00 WONDIFUL ity o f [facility] 2019-08-07 2019-08-07 Abelardo Nascimento [facility] 1.2.840.114 [id number] Univers 00:00:00 00:00:00 Davina [place] 350.1.13.10 i ty of [place].2.[place] [phone] Sd dical nal 220 [facility] 2019-07-28 2019-07-28 Telephone Annie [facility] 1.2.840.114 [id number] Univers 00:00:00 00:00:00 [facility] A Health 350.1.13.10 ity of [place] 4.2.7.2.686 [place]efry as Professio [phone] [facility] 044 [facility] 2019-07-12 2019-07-12 Telephone [facility] 1.2.840.114 [id number] Univers 00:00:00 00:00:00 Strahil T [place] 350.1.13.10 ity [place] [phone] [facility] 085 [facility] 2019-07-09 2019-07-09 Outpatient R ANNIE [facility] [id number] Univers 08:15:00 08:15:00 WONDIFUL ity o f [facility] 2019-07-09 2019-07-09 [facility]medici [facility] 1.2.840.114 [id number] Univers 07:12:02 07:27:02 ne Visit [facility] 350.1.13.10 ity of [place] 4.2.7.2.686 [place]ef[place] as Professio [phone] [facility] 044 [facility] 2019-07-07 2019-07-07 Outpatient Raju_P [facility] [id number] 020 [place] 12:12:00 12:12:00 0325 [facility] 2019-06-30 2019-06-30 [facility]ill [facility] 1.2.840.114 [id number] Univers 00:00:00 00:00:00 [facility] 350.1.13.10 ity of [place] 4.2.7.2.686 Jefry as Professio [phone] [facility] 044 [facility] 2019-06-16 2019-06-16 [facility]phone [facility] 1.2.840.114 [id number] Univers 00:00:00 00:00:00 [facility] 350.1.13.10 ity of [place] 4.2.7.2.686 [place]ef[place] as Professio [phone] [address] Office [facility] 2019-06-14 2019-06-14 Telephone [facility] 1.2.840.114 [id number] Univers 00:00:00 00:00:00 [facility] 350.1.13.10 ity of [place] 4.2.7.2.686 [place]ef[place] as Professio [phone] [address] 2019-06-11 2019-06-11 Office [facility] 1.2.840.114 [id number] Univers 11:15:43 11:54:57 Visit [facility] 350.1.13.10 ity of [place] 4.2.7.2.686 [place]ef[place] as Professio [phone] [address] 2019-06-11 2019-06-11 Outpatient R [facility] [id number] Univers 11:15:00 11:15:00 WONDIFUL ity o f [facility] 2019-06-11 2019-06-11 Telephone [facility] 1.2.840.114 [id number] Univers 00:00:00 00:00:00 W[facility] A [facility] 350.1.13.10 ity of [place] 4.2.7.2.686 [place]ef[place] as Professio [phone] [address] 2019-06-09 2019-06-09 Orders Doctor UYEN 1.2.840.114 [id number] Univers 00:00:00 00:00:00 Only Unassigned, FLASH 350.1.13.10 ity of [place] [facility] 4.2.7.2.686 Jefry as [phone] [address] 2019-05-27 2019-05-27 Emergency [facility] 1.2.279.720 [id number] Univers 11:23:50 16:38:00 Katye R Haylee 350.1.13.10 i ty of [place].2.[place] [phone] [address] 2019-05-27 2019-05-27 Emergency X CHOLO [facility] ERT [id number] Univers 11:23:50 16:38:00 KATIA itjose manuel of [facility] 2019-05-27 2019-05-27 Emergency X CHOLO, [facility] ERT [id number] Univers 11:23:50 16:38:00 KATIA ity of [facility] 2019-05-24 2019-05-24 [facility]phone [facility] 1.2.840.114 [id number] Univers 00:00:00 00:00:00 [facility] 350.1.13.10 ity of [place] 4.2.7.2.686 [place]ef[place] as Professio [phone] [address] 2019-05-20 2019-05-20 [facility] 1.2.376.718 [id number] Univers 11:36:54 15:28:00 Juan Daniel S [place] 350.1.13.10 ity of [place] 4.2.7.2.686 [facility] [phone] [address] 2019-05-19 2019-05-19 Telephone [facility] 1.2.840.114 [id number] Univers 00:00:00 00:00:00 [facility] 350.1.13.10 ity of [place] 4.2.7.2.686 Jefry as Professio [phone] [address] 2019-05-18 2019-05-18 [facility] 1.2.337.762 [id number] Univers 14:42:52 20:01:00 Johnnie S [place] 350.1.13.10 i ty of [place] 4.2.7.2.686 [facility] [phone] [address] 2019-05-18 2019-05-18 Emergency [facility] [id number] Univers 14:42:52 20:01:00 JOHNNIE ity of [facility] 2019-05-18 2019-05-18 Office [facility] 1.2.840.114 [id number] Univers 14:08:35 14:31:10 Visit [facility] 350.1.13.10 ity of [place] 4.2.7.2.686 Jefry as Professio [phone] [facility]d [facility] [address] Office [facility] 2019-04-27 2019-04-27 Office [facility] 1.2.840.114 [id number] Univers 14:03:56 14:56:08 Visit Sendeugene [place] 350.1.13.10 ity of [place] [phone] [facility] 059 [facility] 2019-04-27 2019-04-27 [id number] Univers 14:00:00 14:56:08 SENDIL itjose manuel of [facility] 2019-03-25 2019-03-25 Outpatient [facility] [id number] Univers 13:00:00 14:53:50 TONNY villar o f [facility] 2018-12-30 2018-12-30 Emergency [facility] [id number] [facility] 16:33:05 19:07:00 Juan Daniel S [place] 350.1.13.10 ity of [place] [phone] [address] 2018-12-29 2018-12-29 [facility]ill [facility] 1.2.840.114 [id number] Univers 00:00:00 00:00:00 W[facility] A Health 350.1.13.10 ity of [place] 4.2.7.2.686 Jefry as Professio [phone] [address] Office [facility] One 2018-12-25 2018-12-25 Office [facility] 1.2.840.114 [id number] Univers 16:26:52 17:15:59 Visit [facility] 350.1.13.10 ity of [place] 4.2.7.2.686 Jefry as Professio [phone] [address] Office [facility] 2018-12-11 2018-12-11 [facility] 1.2.840.114 [id number] Univers 15:30:00 23:59:00 Encounter Roxy May [place] 350.1.13.10 ity of [place].2.[place] [phone] [facility] [address] 2018-12-09 2018-12-09 Telephone [facility] 1.2.840.114 [id number] Univers 00:00:00 00:00:00 W[facility] A Health 350.1.13.10 ity of [place] 4.2.7.2.686 [place]ef[place] as Professio [phone] [address] Office Building One 2018-12-08 2018-12-08 Orders Doctor UYEN 1.2.840.114 [id number] Univers 00:00:00 00:00:00 Only Unassigned, FLASH 350.1.13.10 ity of [place] [facility] 4.2.7.2.686 Jefry as [phone] [address] 2018-12-02 2018-12-02 Telephone [facility] 1.2.840.114 [id number] Univers 00:00:00 00:00:00 W[facility] 350.1.13.10 ity of [place] 4.2.7.2.686 [place]ef[place] as Professio [phone] [address] Office [facility] 2018-12-02 2018-12-02 Orders Doctor UYEN 1.2.840.114 [id number] Univers 00:00:00 00:00:00 Only Unassigned, FLASH 350.1.13.10 ity of [place] [facility] 4.2.7.2.686 Jefry as [phone] [address] 2018-11-26 2018-11-26 Office [facility] 1.2.840.114 [id number] Univers 07:58:43 08:41:48 Visit [facility] 350.1.13.10 ity of [place] 4.2.7.2.686 [place]ef[place] as Professio [phone] [address] Office [facility] 2018-11-20 2018-11-23 Life Enrichment Assistant 1, Adc Lab [facility] 1.2.840.114 [id number] Univers 08:45:28 07:47:30 Visit Davi Valenciainezjefferson Leach 350.1.13. 10 ity of [place] 4.2.7.2.686 [facility] [phone] [facility] [address] 2018-11-20 2018-11-20 Orders Doctor UYEN 1.2.840.114 [id number] Univers 00:00:00 00:00:00 Only Unassigned, FLASH 350.1.13.10 ity of [place] [facility] 4.2.7.2.686 Jefry as [phone] [facility] [address] 2018-11-17 2018-11-17 Hospital Annie [facility] 1.2.125.446 [id number] Univers 13:59:39 23:59:00 Encounter Rubi [place] 350.1.13.10 ity of [place] 4.2.7.2.686 [facility] [phone] [facility] [address] 2018-11-17 2018-11-17 Telephone Annie [facility] 1.2.840.114 [id number] Univers 00:00:00 00:00:00 [facility] 350.1.13.10 ity of [place] 4.2.7.2.686 Jefry as Professio [phone] [address] Office [facility] 2018-11-17 2018-11-17 Orders Doctor UYEN 1.2.840.114 [id number] Univers 00:00:00 00:00:00 Only Unassigned, FLASH 350.1.13.10 ity of [place] [facility] 4.2.7.2.686 Jefry as [phone] [facility] [address] 2018-11-10 2018-11-10 Office Annie [facility] 1.2.840.114 [id number] Univers 15:59:52 16:59:49 Visit Venk[facility]ful [facility] 350.1.13.10 ity of [place] 4.2.7.2.686 Jefry as Professio [phone] [address] Office [facility] 2018-11-09 2018-11-09 Telephone Annie [facility] 1.2.840.114 [id number] Univers 00:00:00 00:00:00 Wondiful A Health 350.1.13.10 ity of [place] 4.2.7.2.686 Jefry as Professio [phone] Sd dical nal 044 [facility] Building One 2018-11-06 2018-11-06 Telephone AKBAR Valencia 1.2.840.114 [id number] Univers 00:00:00 00:00:00 W[facility] A [facility] 350.1.13.10 ity of [place] 4.2.7.2.686 Jefry as Professio [phone] Sd dical nal 044 [facility] One Results Test Description Test Time Test [...] U APPEAR (test code = 3267) Clear [facility] [id number] 10:30:43 Test Item Value Reference Range Interpretation Comments SCAN RESULT (test code = 0584900) See attachment Miscellaneous lab [id number] 10:30:43Scan [id number]/31/2022 10:30 AM CDTSLE NON-INTERFACED REFERENCE LABSCHI [facility] 2022-07-31 10:30:43Scan Ugvdpc9507/31/2022 10:30 AM CDTSLE NON-INTERFACED REFERENCE LABSCHI [facility] MOLECULAR [id number] 20:15:50 Test Item Value Reference Range Interpretation Comments POCT Molecular FluA (test code = Negative Negative 97525-6) POCT Molecular FluB (test code = Negative Negative 36423-7) Lab Interpretation (test code = Normal 65624-3) [facility] MOLECULAR [id number] 20:15:50 Test Item Value Reference Range Interpretation Comments POCT Molecular FluA (test code = Negative Negative 76029-8) POCT Molecular FluB (test code = Negative Negative 83443-0) Lab Interpretation (test code = Normal 57690-6) [facility] GLUCOSE (AUTOMATED)2022-06-11 18:31:08 Test Item Value Reference Range Interpretation Comments POCT GLU (test code = 8552235702) 238 mg/dL 70-110 H Lab Interpretation (test code = Abnormal 77276-5) [facility] GLUCOSE (AUTOMATED)2022-06-11 15:45:15 Test Item Value Reference Range Interpretation Comments POCT GLU (test code = 1674932920) 202 mg/dL 70-110 H Lab Interpretation (test code = Abnormal 69334-0) [facility] GLUCOSE (AUTOMATED)2022-06-11 02:38:12 Test Item Value Reference Range Interpretation Comments POCT GLU (test code = 1144324865) 282 mg/dL 70-110 H Lab Interpretation (test code = Abnormal 98238-1) [facility] GLUCOSE (AUTOMATED)2022-06-10 22:25:18 Test Item Value Reference Range Interpretation Comments POCT GLU (test code = 8116219638) 207 mg/dL 70-110 H Lab Interpretation (test code = Abnormal 23535-8) [facility] GLUCOSE (AUTOMATED)2022-06-10 18:34:57 Test Item Value Reference Range Interpretation Comments POCT GLU (test code = 5259610501) 157 mg/dL 70-110 H Lab Interpretation (test code = Abnormal 73598-4) [facility] GLUCOSE (AUTOMATED)2022-06-10 15:02:38 Test Item Value Reference Range Interpretation Comments POCT GLU (test code = 1359373640) 164 mg/dL 70-110 H Lab Interpretation (test code = Abnormal 83633-5) [facility] GLUCOSE (AUTOMATED)2022-06-10 02:35:29 Test Item Value Reference Range Interpretation Comments POCT GLU (test code = 5771669096) 176 mg/dL 70-110 H Lab Interpretation (test code = Abnormal 16424-4) [facility] GLUCOSE (AUTOMATED)2022-06-09 22:36:02 Test Item Value Reference Range Interpretation Comments POCT GLU (test code = 6665152056) 141 mg/dL 70-110 H Lab Interpretation (test code = Abnormal 95575-9) [facility] GLUCOSE (AUTOMATED)2022-06-09 17:59:48 Test Item Value Reference Range Interpretation Comments POCT GLU (test code = 3381131932) 221 mg/dL 70-110 H Lab Interpretation (test code = Abnormal 46375-7) [facility] GLUCOSE (AUTOMATED)2022-06-09 14:05:00 Test Item Value Reference Range Interpretation Comments POCT GLU (test code = 3008361712) 191 mg/dL 70-110 H Lab Interpretation (test code = Abnormal 61734-0) [facility] CenterLamtic Acid Whole [id number] 11:01:54 Test Item Value Reference Range Interpretation Comments LACTIC ACID (test code = 1.87 mmol/L 0.50-2.20 2653099972) Lab Interpretation (test code = Normal 66924-9) [facility] GLUCOSE (AUTOMATED)2022-06-09 02:33:04 Test Item Value Reference Range Interpretation Comments POCT GLU (test code = 8698157146) 221 mg/dL 70-110 H Lab Interpretation (test code = Abnormal 07107-0) [facility] GLUCOSE (AUTOMATED)2022-06-08 22:54:59 Test Item Value Reference Range Interpretation Comments POCT GLU (test code = 7708994173) 215 mg/dL 70-110 H Lab Interpretation (test code = Abnormal 10321-7) [facility] GLUCOSE (AUTOMATED)2022-06-08 22:49:01 Test Item Value Reference Range Interpretation Comments POCT GLU (test code = 8724156022) 207 mg/dL 70-110 H Lab Interpretation (test code = Abnormal 11442-4) [facility] CenterC-REACTIVE [id number] 17:45:48 Test Item Value Reference Range Interpretation Comments CRP (test code = 4475075180) 12.3 mg/dL <=0.8 H Lab Interpretation (test code = Abnormal 07518-5) [facility] GLUCOSE (AUTOMATED)2022-06-08 14:26:08 Test Item Value Reference Range Interpretation Comments POCT GLU (test code = 5595148039) 254 mg/dL 70-110 H Lab Interpretation (test code = Abnormal 75370-0) [facility] GLUCOSE (AUTOMATED)2022-06-08 02:38:40 Test Item Value Reference Range Interpretation Comments POCT GLU (test code = 1337850098) 181 mg/dL 70-110 H Lab Interpretation (test code = Abnormal 91315-1) [facility] GLUCOSE (AUTOMATED)2022-06-07 22:53:00 Test Item Value Reference Range Interpretation Comments POCT GLU (test code = 2043014254) 178 mg/dL 70-110 H Lab Interpretation (test code = Abnormal 26443-5) [facility] CenterPROCALCITONIN2023-02-24 19:17:11 Test Item Value Reference Range Interpretation Comments Procalcitonin (test 0.24 ng/mL <=0.07 H code = 6990539580) MARIE (test code = MARIE) INTERPRETATION OF [...] lung abscess/empyema. For further information please refer to:[email or web address] Lab Interpretation Abnormal (test code = 39594-4) [facility] GLUCOSE (AUTOMATED)2022-06-07 17:23:08 Test Item Value Reference Range Interpretation Comments POCT GLU (test code = 8816582124) 219 mg/dL 70-110 H Lab Interpretation (test code = Abnormal 61283-9) [facility] GLUCOSE (AUTOMATED)2022-06-07 17:04:52 Test Item Value Reference Range Interpretation Comments POCT GLU (test code = 3692451852) 148 mg/dL 70-110 H Lab Interpretation (test code = Abnormal 55222-5) [facility] CenterN-TERMINAL [id number] 14:34:22 Test Item Value Reference Range Interpretation Comments NT-proBNP (test code = 896 pg/mL <=125 H 3128328841) MARIE (test code = MARIE) Biotin has been reported to cause a negative bias, interpret results relative to patient's use of biotin. Lab Interpretation (test Abnormal code = 81644-3) [facility] CenterSEDIMENTATION [id number] 13:35:02 Test Item Value Reference Range Interpretation Comments ESR (test code = 59 See_Comment H [Automated message] 14634-8) The system [employer] generated this result transmitted ref erence range: 0 - 20 m m/HR. The reference r hal was not used to interpret this result as normal/abnor mal. Lab Interpretation (test Abnormal code = 24301-8) [facility] CenterFERRITIN [id number] 13:31:35 Test Item Value Reference Range Interpretation Comments FERRITIN (test code = 20.1 ng/mL 11.0-264.0 6047809034) MARIE (test code = MARIE) Biotin has been reported to cause a negative bias, interpret results relative to patient's use of biotin. Lab Interpretation (test Normal code = 02618-3) [facility] CenterTHYROID STIMULATING [id number] 13:27:12 Test Item Value Reference Range Interpretation Comments TSH (test code = 0.47 See_Comment [Automated message] 6635865238) The system [employer] generated this result transmitted ref erence range: 0.45 - 4 .70 mIU/L. The refe rence range was not u sed to interpret this result as normal/abnor mal. Lab Interpretation (test Normal code = 80970-8) [facility] CenterIRON [id number] 13:11:55 Test Item Value Reference Range Interpretation Comments IRON (test code = 5098071531) 33 ug/dL 50-160 L TIBC (test code = 1997716462) 424 ug/dL 250-410 H % FE SAT (test code = 9416677747) 8 % 20-50 L Lab Interpretation (test code = Abnormal 06140-0) [facility] CenterLACTATE [id number] 13:03:55 Test Item Value Reference Range Interpretation Comments LDH (test code = 4438535098) 221 U/L 120-246 Lab Interpretation (test code = Normal 00789-4) [facility] CenterLIPID PANEL (44620)(TOTAL CHOLESTEROL, TRIGLYCERIDES, HDL)2022-06-07 13:02:54 Test Item Value Reference Range Interpretation Comments CHOL (test code = 7269603243) 127 mg/dL 120-200 HDL (test code = 0314096429) 64 mg/dL >=50 HDLC RATIO (test code = 3272699194) 2.0 <=4.5 TRIG (test code = 1996318524) 179 mg/dL 30-170 H LDL CHOL (test code = 29657-0) 27 mg/dL <=160 VLDL (test code = 7579608462) 36 mg/dL 5-60 Lab Interpretation (test code = Abnormal 18879-4) [facility] CenterCOMP. METABOLIC PANEL (53415)2022-06-07 13:02:43 Test Item Value Reference Range Interpretation Comments NA (test code = 137 mmol/L 135-145 7623153050) K (test code = 4.3 mmol/L 3.5-5.0 0716001908) CL (test code = 98 mmol/L 98-108 0806950412) CO2 TOTAL (test code = 25 mmol/L 23-31 0789862733) AGAP (test code = 14 2-16 8558937975) BUN (test code = 28 mg/dL 7-23 H 0250998099) GLUCOSE (test code = 238 mg/dL 70-110 H 5688931274) CREATININE (test code = 1.26 mg/dL 0.50-1.04 H 9438084674) TOTAL BILI (test code = 0.8 mg/dL 0.1-1.0 2191599442) CALCIUM (test code = 8.8 mg/dL 8.6-10.6 4690047098) T PROTEIN (test code = 7.2 g/dL 6.3-8.2 9562172174) ALBUMIN (test code = 3.9 g/dL 3.5-5.0 1191535351) ALK PHOS (test code = 83 U/L 34-122 9310912898) ALTv (test code = 26 U/L 5-35 1742-6) AST(SGOT) (test code = 24 U/L 13-40 0872601093) eGFR (test code = 42.4 mL/min/1.73m2 7788278215) MARIE (test code = MARIE) Association of [...] tests). Lab Interpretation Abnormal (test code = 42698-4) [facility] CenterCREATINE [id number] 13:01:53 Test Item Value Reference Range Interpretation Comments CK (test code = 9982568760) 83 U/L 33-194 Lab Interpretation (test code = Normal 36458-2) [facility] CenterURIC [id number] 13:01:53 Test Item Value Reference Range Interpretation Comments URIC ACID (test code = 8463164283) 5.6 mg/dL 2.9-6.0 Lab Interpretation (test code = Normal 89104-8) [facility] WITH [id number] 12:43:11 Test Item Value Reference Range Interpretation Comments WBC (test code = 9.02 See_Comment [Automated 6690-2) message] The sy stem which generated this result transmitted reference range : 4.30 - 11.10 10*3/?L. The reference range was not used to interpret this result as normal/abnormal . RBC (test code = 4.82 See_Comment [Automated 789-8) message] The sy stem which generated this [...] RDW-SD (test code = 44.2 fL 39.0-49.9 88248-8) RDW-CV (test code = 16.6 % 12.0-15.5 H 788-0) PLT (test code = 265 See_Comment [Automated 777-3) message] The sy stem which generated this result transmitted reference range : 166 - 358 10*3/ ?L. The reference r hal was not used to interpret this result as normal/abnormal . MPV (test code = 11.3 fL 9.5-12.9 67294-5) NRBC/100 WBC (test 0.0 See_Comment [Automat ed code = 6822550330) message] The system which generated this result transmitted reference range : 0.0 - 10.0 /100 WBCs. The refer ence range was not u sed to interpret th is result as normal/abnormal . NRBC x10^3 (test code See_Comment [Auto mated = 9048263214) message] The s ystem which generated this result transmitted reference range : 10*3/?L. The reference range was not used to interpret this result as normal/abnormal . GRAN MAT (NEUT) % 66.9 % (test code = 770-8) IMM GRAN % (test code 0.40 % = 2512463206) LYMPH % (test code = 23.5 % 736-9) MONO % (test code = 8.2 % 5905-5) EOS % (test code = 0.8 % 713-8) BASO % (test code = 0.2 % 706-2) GRAN MAT x10^3(ANC) 6.03 10*3/uL 1.88-7.09 (test code = 7738903303) IMM GRAN x10^3 (test 0.04 10*3/uL 0.00-0.06 code = 5810647124) LYMPH x10^3 (test code 2.12 10*3/uL 1.32-3.29 = 731-0) MONO x10^3 (test code 0.74 10*3/uL 0.33-0.92 = 742-7) EOS x10^3 (test code = 0.07 10*3/uL 0.03-0.39 711-2) BASO x10^3 (test code 0.01-0.07 = 704-7) Lab Interpretation Abnormal (test code = 97774-3) [facility] CenterProthrombin Time / [id number] 12:29:29 Test Item Value Reference Range Interpretation Comments PROTIME PATIENT (test 13.0 See_Comment [Auto mated message] code = 5964-2) The system [employer] ich generated this result transmitted ref erence range: 12.0 - 1 4.7 Seconds. The re ference range was not u sed to interpret this result as normal/abnor mal. INR (test code = 6301-6) 1.0 Nor mal INR <1.1; Warfarin Therap eutic range 2.0 to 3. 0 or 2.5 to 3.5, dep ending upon the indica tions. Lab Interpretation (test Normal code = 18848-7) [facility] CenterPOCT GLUCOSE (AUTOMATED)2022-06-07 08:34:01 Test Item Value Reference Range Interpretation Comments POCT GLU (test code = 1205474958) 287 mg/dL 70-110 H Lab Interpretation (test code = Abnormal 48882-6) [facility] GLUCOSE (AUTOMATED)2022-06-07 03:09:09 Test Item Value Reference Range Interpretation Comments POCT GLU (test code = 7129192518) 191 mg/dL 70-110 H Lab Interpretation (test code = Abnormal 36759-7) [facility] MOLECULAR [id number] 19:42:00 Test Item Value Reference Range Interpretation Comments POCT Molecular FluA (test code = Negative Negative 65792-9) POCT Molecular FluB (test code = Negative Negative 61559-1) Lab Interpretation (test code = Normal 45521-0) [facility] MOLECULAR [id number] 19:36:40 Test Item Value Reference Range Interpretation Comments POCT Molecular Strep (test code = Negative Negative 18611-9) Lab Interpretation (test code = Normal 58605-5) [facility] SARS-COV-2 ANTIGEN (BINAX NOW)2022-06-01 19:36:00 Test Item Value Reference Range Interpretation Comments POCT SARS-COV-2 ANTIGEN (test code = Positive Not Detected A 95824-6) On board controls acceptable with C Yes Line (test code = 3574) Lab Interpretation (test code = Abnormal 79364-0) [facility] MOLECULAR [id number] 14:58:03 Test Item Value Reference Range Interpretation Comments POCT Molecular FluA (test code = Negative Negative 39413-8) POCT Molecular FluB (test code = Negative Negative 90769-6) Lab Interpretation (test code = Normal 32318-5) [facility] MOLECULAR [id number] 14:51:54 Test Item Value Reference Range Interpretation Comments POCT Molecular Strep (test code = Negative Negative 54869-7) Lab Interpretation (test code = Normal 17661-4) [facility] SARS-COV-2 ANTIGEN (BINAX NOW)2022-02-05 19:36:00 Test Item Value Reference Range Interpretation Comments POCT SARS-COV-2 ANTIGEN (test Not Detected Not Detected code = 13269-3) On board controls acceptable Yes with C Line (test code = 3574) [facility] MOLECULAR [id number] 19:27:20 Test Item Value Reference Range Interpretation Comments POCT Molecular FluA (test code = Negative Negative 37186-9) POCT Molecular FluB (test code = Negative Negative 25191-6) Lab Interpretation (test code = Normal 86894-5) [facility] MOLECULAR [id number] 19:16:44 Test Item Value Reference Range Interpretation Comments POCT Molecular Strep (test code = Positive Negative A 30394-0) Lab Interpretation (test code = Abnormal 69936-9) [facility]. METABOLIC PANEL (50954)2021-11-27 04:07:20 Test Item Value Reference Range Interpretation Comments NA (test code = 138 mmol/L 135-145 0945953352) K (test code = 4.7 mmol/L 3.5-5 5641482412) CL (test code = 101 mmol/L 98-108 5871261488) CO2 TOTAL (test code = 30 mmol/L 23-31 4149206029) AGAP (test code = 2-16 5421089948) BUN (test code = 20 mg/dL 7-23 2963026837) GLUCOSE (test code = 162 mg/dL 70-110 H 2224891860) CREATININE (test code = 0.92 mg/dL 0.5-1.04 1678699186) TOTAL BILI (test code = 0.4 mg/dL 0.1-1.1 8810936555) CALCIUM (test code = 9.4 mg/dL 8.6-10.6 4321330873) T PROTEIN (test code = 6.8 g/dL 6.3-8.2 7807843492) ALBUMIN (test code = 4.0 g/dL 3.5-5 7991998573) ALK PHOS (test code = 86 U/L 34-122 9711046538) ALTv (test code = 23 U/L 5-35 1742-6) AST(SGOT) (test code = 27 U/L 13-40 5517344618) eGFR (test code = mL/min/1.73m2 2783508064) MARIE (test code = MARIE) Association of [...] tests). Lab Interpretation Abnormal (test code = 75529-4) [facility]. METABOLIC PANEL (49589)2021-11-27 04:07:20 Test Item Value Reference Range Interpretation Comments NA (test code = 138 mmol/L 135-145 1425259934) K (test code = 4.7 mmol/L 3.5-5.0 7704935087) CL (test code = 101 mmol/L 98-108 0677189576) CO2 TOTAL (test code = 30 mmol/L 23-31 6850214127) AGAP (test code = 2-16 6721206318) BUN (test code = 20 mg/dL 7-23 3844761264) GLUCOSE (test code = 162 mg/dL 70-110 H 2230998968) CREATININE (test code = 0.92 mg/dL 0.50-1.04 2297967179) TOTAL BILI (test code = 0.4 mg/dL 0.1-1.1 1649197341) CALCIUM (test code = 9.4 mg/dL 8.6-10.6 9074758063) T PROTEIN (test code = 6.8 g/dL 6.3-8.2 5188913108) ALBUMIN (test code = 4.0 g/dL 3.5-5.0 6402852269) ALK PHOS (test code = 86 U/L 34-122 5226083117) ALTv (test code = 23 U/L 5-35 1742-6) AST(SGOT) (test code = 27 U/L 13-40 1051806032) eGFR (test code = mL/min/1.73m2 1586125473) MARIE (test code = MARIE) Association of [...] tests). Lab Interpretation Abnormal (test code = 27696-4) [facility] [id number] 15:50:00 Test Item Value Reference Range Interpretation Comments POC glucose (test code 118 mg/dL 65-99 H Opera tor Name: KIKAALE = 59977-1) LA CALDERA Device ID: [id number] able: TM Notified log deckman Interpretation Abnormal (test code = 71681-0) [employer] [facility] [id number] 15:50:00 Test Item Value Reference Range Interpretation Comments POC glucose (test code 118 mg/dL 65-99 H Opera tor Name: KIKAALE = 00101-8) LA CALDERA Device ID: [id number] able: [facility] Notified log deckman Interpretation Abnormal (test code = 01636-0) [facility] [id number] 07:59:00 Test Item Value Reference Range Interpretation [...] screened with both Cologuard and colonoscopy. (Holland Chen et al, N Engl J Med 2014;370(14):9893-2798) The normal value (reference range) for this assay is negative. COLOGUARD RE-SCREENING RECOMMENDATION: Periodic colorectal cancer screening is an important part of preventive healthcare for asymptomatic individuals at average risk for colorectal cancer. ?Following a negative Cologuard result, the [place] [employer] and U.S. Multi-Society Task Force?screening guidelines recommend a Cologuard re-screening interval of 3 years. References: [place] [employer] Guideline for Colorectal Cancer Screening: https://www.cancer.org/ cancer/kjefw-gbwqma-otr cer/detection-diagnosis -staging/acs-recommenda tions.html.; Alexsander NORTON, Hector TREJO, Vidhya NAVA, Colorectal Cancer Screening: Recommendations for Physicians and Patients from the U.S. Multi-Society Task Force on Colorectal Cancer Screening , Am J Gastroenterology 2017; 112:5921-0128. TEST DESCRIPTION: Composite algorithmic analysis of stool [...] screened with both Cologuard and colonoscopy. (Holland Chen et al, N Engl J Med 2014;370(14):3311-9405. ) Cologuard may produce a false negative or false positive result (no colorectal cancer or?precancerous polyp present at colonoscopy follow up). A negative Cologuard test result does not guarantee the absence of CRC or advanced adenoma (pre-cancer). The current Cologuard screening interval is every 3 years. ([place] [employer] and U.S. Multi-Society Task Force). Cologuard performance data in a 10,000 patient pivotal study using colonoscopy as the reference method can be accessed at the following location: www.[employer]/resul ts. Additional description of the Cologuard test process, warnings and precautions can be found at www.[employer]. Resulting Agency [employer] (CLIA #:[id number]) Specimen Collected: 07/13/21 07:15 Last Resulted: 07/18/21 02:59 Received From: [employer] Result Received: 07/26/21 08:09 Lab Interpretation Normal (test code = 49260-6) [facility]
[2022-08-31 14:39] VITALS: BP 147/101; TEMP 98.2; O2SAT 94
== END ==
LOC: ER 13:42
DX: K57.32 Diverticulitis of large intestine without perforation or abscess without bleeding (principal); R10.816 Epigastric abdominal tenderness; Z88.0 Allergy status to penicillin; Z88.5 Allergy status to narcotic agent; Z88.8 Allergy status to other drugs, medicaments and biological substances
CPT/HCPCS: Q0169

== ENCOUNTER 2022-11-22 19:42 | Emergency (ER) | payer OTHER ==
--- OUTSIDE RECORDS SUMMARY | 2022-11-22 19:44 | XMS REPORT | Clinical Summary ---
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
--- OUTSIDE RECORDS SUMMARY | 2022-11-22 20:33 | XMS REPORT | Continuity of Care Document ---
:1955 Author Organization [facility] t Address [address] [place] [address] [place] [id number] Care Team Providers Name Role Phone Sebastian FERRARO, Jon Talbot Primary Care Physician RAZ TINEO Attending Clinician Unavailable MATEO HUSAIN Attending Clinician Unavailable RENA ROLLINS Attending Clinician Unavailable RENA ROLLINS Attending Clinician Unavailable Raz Gloria Attending Clinician [facility] Attending Clinician Unavailable Unknown, Attending Attending Clinician Unavailable TORRI JUNG Attending Clinician Unavailable Barrington Knutson MD Attending Clinician Doctor Unassigned, Jolly Attending Clinician Unavailable Patsy Trent PA-C Attending Clinician KATIE LIN Attending Clinician Unavailable PATSY TRENT Attending Clinician Unavailable Scarlett Swanson MD Attending Clinician [phone] Mikhail Perez LVN Attending Clinician Unavailable Lab, Ang - Db Attending Clinician Unavailable Rama Cunningham Attending Clinician Unavailable MARGARITA PEACOCK Attending Clinician Unavailable Margarita Fermin Attending Clinician TONNY MARTINEZ Attending Clinician Unavailable Manuela GOLDEN, Jony Attending Clinician JONY ROY Attending Clinician Unavailable Rena Rollins DO Attending Clinician Riley FERRARO, Katie Kiser Attending Clinician Ruby ROMEO, Flori Kent Attending Clinician Unavailable AKILAH SAENZ Attending Clinician Unavailable Nikolay BARKER, K Agustina Attending Clinician Akilah Saenz DO Attending Clinician OMAR MCGARRY Attending Clinician Unavailable Zeferino AUTOMATIC DRILLING MACHINE OPERATOR, Omar Attending Clinician TYLER MONTEJO Attending Clinician Unavailable Gustabo MENDEZP, Tyler Attending Clinician CIERRA ROBLERO Attending Clinician Unavailable Radiology Attending Clinician Unavailable RADIOLOGY Attending Clinician Unavailable Shreya FNP, Tracy Paez Attending Clinician TRACY CASH Attending Clinician Unavailable Team, [facility] Provider, [facility] Attending Clinician Unavailable RISSA BAKER Attending Clinician Unavailable Rissa Baker MD Attending Clinician Belkys Joshua RN Attending Clinician Unavailable Barb Trejo Attending Clinician Annie FERRARO, Rubi Marinelli Attending Clinician TARSHA JEONG Attending Clinician Unavailable Jean-Paul MENDEZP, Tarsha Matthews Attending Clinician [phone] COLIN LEONARDO Attending Clinician Unavailable Hayes FERRARO, Rickey Ackerman.SJesus Attending Clinician [phone] Saul FERRARO, Rohan Jeong Attending Clinician [phone] Marisela Jaquez CRNA Attending Clinician [phone] ROXY STEINBERG Attending Clinician Unavailable Roxy Steinberg MD Attending Clinician Jorden FERRARO, Colin P Attending Clinician Johnnie Cohen S Attending Clinician Isra ROMEO, Krys Talbot Attending Clinician Unavailable GUS STEWART Attending Clinician Unavailable Vincent AUTOMATIC DRILLING MACHINE OPERATOR, Shinta Attending Clinician Pat FERRARO, Gus Attending Clinician Amador PT, Marcie T Attending Clinician Unavailable Mateo Husain MD Attending Clinician RUBI VALENCIA Attending Clinician Unavailable OGUNLANA, BRE A Attending Clinician Unavailable Oglynsey DPM, Bre A Attending Clinician [phone] Kailey Bland MD Attending Clinician KAILEY BLAND Attending Clinician Unavailable KAILEY BLAND Attending Clinician Unavailable Therapist, [facility] Respiratory Attending Clinician Unavailable Floyd Man MD Attending Clinician FLOYD MAN Attending Clinician Unavailable Bárbara Gallo RN Attending Clinician Unavailable Only, Ang Db Test Attending Clinician Unavailable Omaghomi AUTOMATIC DRILLING MACHINE OPERATOR, Omayemi Attending Clinician OMAGHOMI, OMAYEMI Attending Clinician Unavailable Green AUTOMATIC DRILLING MACHINE OPERATOR, Asaf Attending Clinician GREEN ASAF Attending Clinician Unavailable Vaccine, Ang Db Cbc Fam Attending Clinician Unavailable EUGENIE SMALLS Attending Clinician Unavailable Herb Corey MD Attending Clinician HERB COREY Attending Clinician Unavailable Ibikunle AUTOMATIC DRILLING MACHINE OPERATOR, Folusho F Attending Clinician Leticia Loomis RN T Attending Clinician Unavailable Therapy, [facility] Covid Infusion Attending Clinician Unavailable Sebastian FERRARO, Pal Marinelli Attending Clinician Holland FERRARO, Mark Magana Attending Clinician Yonathan Bailey MD Attending Clinician Lab, [facility] Fam Pob I Attending Clinician Unavailable Eugenie Smalls DPM Attending Clinician [phone] Gregory Pollock MD Attending Clinician ALEXSANDER TORRES Attending Clinician Unavailable Pob, [facility] Main Attending Clinician Unavailable Daniel Aguayo Attending Clinician Nurse, [facility] Attending Clinician Unavailable Provider, [facility] Attending Clinician Unavailable Nayana Haskins Attending Clinician YENIFER RIDDLE Attending Clinician Unavailable 2, [facility] Attending Clinician Unavailable CHELITA MELCHOR Attending Clinician Unavailable Chelita Rey Attending Clinician [phone] Azam FERRARO, Davina Davis Attending Clinician Unavailable German_Paulino Attending Clinician Unavailable Katia Estrada Attending Clinician [...] Clinician Unavailable RUBI VALENCIA Admitting Clinician Unavailable RajBashir Admitting Clinician Unavailable KATIA EMMANUEL Admitting Clinician Unavailable JOHNNIE FLORES Admitting Clinician Unavailable Payers Payer Name Policy Type Policy Number Effective Date Expiration Date S eamon HUMANA CHOICE [id number] 2020 00:00:00 [facility] [id number] 2019 00:00:00 MEDICARE PART A [id number] 2019 00:00:00 [employer]ETNA [facility] CARE [id number] 2013 00:00:00 [employer] HMO [id number] 2013 00:00:00 Problems Condition Condition Condition Status Onset Resolution Last Treating Co mments Source Name Details Category Date Date Treatment Clinician Date At risk At risk Disease Active Univers for falls for falls 4-28 ity of 00:00: [place] [facility] Unspecifie Unspecifie Disease Active U nivers d d 4-28 [place] of abnormalit abnormalit [place] of Medical gait and gait and Branch mobility mobility Forgetfuln Forgetfuln Disease Active U nivers ess ess 4- ity of 00:00: [place] [facility] Shortness Shortness Disease Active Uni vers of breath of breath 2-23 ity of 00:00: [place] [facility] Elevated Elevated Disease Active Unive rs brain brain 2-23 ity of natriureti natriureti [place] c peptide c peptide 00 [facility] (BNP) (BNP) Branch level level COVID-19 COVID-19 Disease Active Unive rs 2-23 ity of 00:00: [place] [facility] HTN HTN Disease Active Univers (hypertens (hypertens 2-23 it y of ion) ion) 00:00: [place] [facility] Upper back Upper back Disease Active 2021-04 U nivers pain on pain on 2-16 [place] of left side left [place] [facility] Pure Pure Disease Active Univers hyperchole hyperchole 7-16 it y of sterolemia sterolemia [place] [facility] Diabetes Diabetes Disease Active Unive rs mellitus mellitus 7-16 ity of 00:00: [place] [facility] Cramp in Cramp in Disease Active Unive rs lower leg lower leg 7-16 [place]y of associated associated [place] with rest with rest 00 [facility] Cardiovasc Cardiovasc Disease Active U nivers ular ular 7-16 ity of system system 00:00: [place] problem problem Medical Branch Gastritis, Gastritis, Disease Active U nivers Helicobact Helicobact 6-20 it y of er pylori er pylori 00:00[place] [facility] Chronic Chronic Disease Active Univers low back low back 6-07 ity of pain pain 00:00: [place] [facility] Weakness Weakness Disease Active Unive rs 6-07 ity of 00:00: [place] [facility] Hair loss Hair loss Disease Active 2020-04 Uni vers 2-26 ity of 00:00: [place] [facility] Chronic Chronic Disease Active 2020-04 Univers bilateral bilateral 2-26 ity of low back low back 00:00: [place] pain pain 00 Medical without without Branch sciatica sciatica Arthritis Arthritis Disease Active 2020-04 Uni vers of lumbar of lumbar 2-21 ity of spine spine 00:00: [place] [facility] Sinus Sinus Disease Active 2020-04 Univers tachycardi tachycardi 0-11 it y of a a 00:00: [place] [facility] Chronic Chronic Disease Active Univers fatigue fatigue 1-09 ity of 00:00: [place] [facility] History of History of Disease Active U nivers COVID-19 COVID-19 1- ity of 00:00: [place] [facility] Vitamin Vitamin Disease Active 2019- Univers B12 B12 6-28 [place] of deficiency deficiency [place] [facility] Other iron Other iron Disease Active 2020-0 U nivers deficiency deficiency 6-24 it y of anemia anemia 00:00: [place] [facility] Other iron Other iron Disease Active 2020-0 U laminers deficiency deficiency 6-24 it y of anemia anemia 00:00: [place] 00 MD [facility] Diastolic Diastolic Disease Active 2018-04 Uni vers dysfunctio dysfunctio 2-15 it y of n n 00:00: [place] [facility] Pulmonary Pulmonary Disease Active 2018-04 Uni vers hypertensi hypertensi 2-15 it y of on on 00:00: [place] [facility] Dyslipidem Dyslipidem Disease Active 2019- U nivers ia ia 1-02 ity of 00:00: [place] [facility] Hypoxia Hypoxia Disease Active 2018- Univers 0-22 ity of 00:00: [place] [facility] Neuropathy Neuropathy Disease Active 2019-0 U nivers of both of both 8- ity of feet feet 00:00: [place] [facility] Myalgia Myalgia Disease Active 2019- Univers 8-01 ity of 00:00: [place] [facility] Uncontroll Uncontroll Disease Active 2019-0 U nivers ed daytime ed daytime 7 it y of somnolence somnolence 00:00: [place] [...] sleep ve sleep 00:00: [place] apnea) apnea) Medical Branch SOTO SOTO Disease Active 2017-04 Univers (dyspnea (dyspnea 0-07 ity of on on 00:00: [place] exertion) exertion) 00 [facility] Branch Multiple Multiple Disease Active Unive rs [...] 00 Medical Branch Chronic Chronic Disease Active 2018 Univers antral antral 1-25 ity of gastritis gastritis 00:[place] 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 1-25 ity of [...] y of d type d type 00:00: [place] [facility] Vitamin B6 Vitamin B6 Disease Active 2016-04 U nivers deficiency deficiency 0-07 it y of 00:00: [place] [facility] Iron Iron Disease Active 2016-04 Univers deficiency deficiency 0-05 it y of 00:00: [place] [facility] B12 B12 Disease Active 2016-04 Univers deficiency deficiency 0-05 it y of 00:00: [place] [facility] Elevated Elevated Disease Active 2016-04 Unive rs sed rate sed rate 0-05 ity of 00:00: [place] [facility] Abdominal Abdominal Disease Active Uni vers adhesions adhesions 8-25 ity of 00:00: [place] [facility] Chronic Chronic Disease Active Univers abdominal abdominal 8-25 ity of pain pain 00:00: [place] [facility] Obesity Obesity Disease Active Univers (BMI (BMI 4-25 ity of 30-39.9) 30-39.9) 00:00: [place] [facility] Pneumonia Pneumonia Disease Active Uni vers 4-25 ity of 00:00: [place] [facility] Vitamin D Vitamin D Disease Active Uni vers deficiency deficiency 4-06 it y of 00:00: [place] [facility] Hypocalcem Hypocalcem Disease Active U nivers ia ia 4- ity of 00:00: [place] [facility] Hypomagnes Hypomagnes Disease Active U laminers emia emia 4- ity of 00:00: [place] [facility] Severe Severe Disease Active Univers obstructiv obstructiv 3-08 it y of e sleep e sleep 00:00: [place] apnea apnea 00 Medical Branch Chronic Chronic Disease Active Univers constipati constipati 2-05 it y of on on 00:00: [place] [facility] HLD HLD Disease Active Univers (hyperlipi (hyperlipi 2-05 it y of demia) demia) 00:00: [place] 00 Medical Branch GERD GERD Disease Active [...] 2-01 it y of on on 00:00: 00 Medical Branch Allergies, Adverse Reactions, Alerts [...] wendy AZOLE INGREDI 09-03 ity of 00:00: 00 Medical Branch Ciproflo Propensi Active Rash 2019-04 Univer s xacin ty to 0-01 ity of adverse 00:00: [place] reaction 00 Medical s Branch CIPROFLO DRUG Active ITCHING 2019- Univers XACIN INGREDI 0- ity of 00:00: [place] 00 Medical Branch Hydromor Propensi Active Hallucinatio 2020-0 Methodi phone ty to ns [address] adverse 00:00: Hospita reaction 00 l [...] [facility] Penicill Propensi Active 2019-0 Univer s ins ty to 6-24 ity [...] Swelling 2018-0 Meth mirian il ty to 09-08 st adverse 00:00: [facility]osp[facility] reaction 00 l s to drug Lisinopr Propensi Active Other - See 2018-0 U nivers il ty to comments - ity of adverse 00:00: [place] reaction 00 Medical s Branch LISINOPR DRUG Active Swelling 2017-0 Univer s IL INGREDI - ity of 00:00: [place] 00 Medical Branch Penicill Propensi Active Hives Method i ins ty to 06-02 st adverse 00:00: Hospita reaction 00 l s to drug Metronid Propensi Active Swelling Meth mirian azole ty to 06-02 st Hcl adverse 00:00: [facility]ospita reaction 00 l s to drug Penicill Propensi Active Hives Method i ins [...] Medical s Branch METRONID DRUG Active Swelling 2015- Univer s AZOLE INGREDI 2-19 ity of HCL 00:00: [place] 00 Medical Branch PENICILL Drug Active Hives 2015- Univers INS Class 2-19 ity of 00:00: [place] 00 Medical Branch Penicill Propensi Active Hives 2015- Univer s ins ty to 2-19 ity of adverse 00:00: [place] reaction 00 Medical s Branch Penicill Drug Active Hives Univers ins Allergy 2-19 ity of 00:00: [place] 00 Medical Branch Penicill Propensi Active 2014- [facility]: Medical reaction 00 Center s Family History Family Member Diagnosis Comments Start Date Stop Date Source Natural brother Lung cancer [facility] Natural father Hypertension [facility]i ty [facility] Maternal grandfather Leukemia Univ ersity [facility] Natural mother Dementia [facility] Natural sister Thyroid cancer Univer sity of [facility] Social History Social Habit Start Date Stop Date Quantity Comments Source History SDOH [facility] History of tobacco Cigarette Smoker [facility] History SDOH Social Unive rsity of [facility] Med ical Together Branch History SDOH Social Unive rsity of [facility] Branch History SDOH Social Unive rsity of [facility] Medical Membership Branch History SDOH Social Unive rsity of [facility] Branch Gender identity [facility] Sexual orientation [facility] Exposure to 2022-07-30 2022-08-09 Not sure University SARS-CoV-2 (event) 00:00:00 10:05:00 [place] [facility] History SDOH 2022-06-07 2022-06-07 1 University o f Alcohol Frequency 00:00:00 00:00:00 [facility] ed[facility] Branch History SDOH 2022-06-07 2022-06-07 0 University o f Alcohol Std Drinks 00:00:00 00:00:00 [place] [facility] History SDOH 2022-06-07 2022-06-07 1 University o f Alcohol Binge 00:00:00 00:00:00 [place] [facility] History SDOH Social 2022-06-07 2022-06-07 5 Unive rsity of Connections Phone 00:00:00 00:00:00 [facility] edical Branch History SDOH Social 2022-06-07 2022-06-07 4 Unive rsity of Connections Living 00:00:00 00:00:00 [place] [facility] History SDOH 2022-06-07 2022-06-07 4 University o f Physical Activity 00:00:00 00:00:00 [facility] edical DPW Branch History SDVA 2022-06-07 2022-06-07 2 University o f Physical Activity 00:00:00 [facility]00[facility]00 [facility] History SDVA 2022-06-07 2022-06-07 5 University o f Financial 00:00:00 00:00:00 [place] [facility] History SDOH Food 2022-06-07 2022-06-07 1 Univers ity of Worry 00:00:00 00:00:00 [place] [facility] History SDOH Food 2022-06-07 2022-06-07 1 Univers ity of Scarcity 00:00:00 00:00:00 [place] [facility] History SDVA 2022-06-07 2022-06-07 2 University o f Transport Med 00:00:00 00:00:00 [place] [facility] History SDVA 2022-06-07 2022-06-07 2 University o f Transport Non-Med 00:00:00 00:00:00 [facility] Branch Cigarettes smoked 2021-11-26 2021-11-26 Univers ity of current (pack per 00:00:00 00:00:00 [facility] day) - Reported Branch Cigarette 2021-11-26 2021-11-26 University of pack-years 00:00:00 00:00:00 [place] [facility] Tobacco Comment 2021-11-26 2021-11-26 Quit about 25 Univer sity of 00:00:00 00:00:00 years ago [facility] History of Social 2021-10-16 2021-10-[address] function 00:00:00 00:00:00 Hospital Education 2021-09-18 2021-09-18 21 University 00:00:00 00:00:00 [place] [facility] Alcohol intake 2019-10-06 2019-10-06 Ex-drinker University 00:00:00 00:00:00 (finding) [facility] Tobacco use and 2019-01-25 2019-01-25 Smokeless [facility] exposure 00:00:00 00:00:00 tobacco non-user Hospital Sex [birth year] [place] 00:00:00 00:00:00 [facility] Smoking Status Start Date Stop Date Source Ex-smoker 2019-01-25 00:00:00 2019-01-25 00:00:00 [facility] Medications Ordered Filled Start Stop Current Ordering Indication Dosage Frequency Signature Comments Components Source Medication Medication Date Date Medication? Clinician (SIG) Name Name DROPLET PEN 0 Yes [id number] USE Univers NEEDLE 31 7-14 DIRECTED ity of gauge x 00:00: TO INJECT [place] 5/16" N[place] 00 INSULIN Medica l EVERY DAY Branch DROPLET PEN 2022-0 Yes [id number] USE Univers NEEDLE 31 7-14 DIRECTED ity of gauge x 00:00: TO INJECT [place] 5/16" Ndle 00 INSULIN Medica l EVERY DAY Branch DROPLET PEN 2022-0 Yes [id number] USE Univers NEEDLE 31 7-14 DIRECTED ity of gauge x 00:00: TO INJECT [place] 5/16" Ndle 00 INSULIN Medica l EVERY DAY Branch DROPLET PEN 2022-0 Yes [id number] USE Univers NEEDLE 31 7-14 DIRECTED ity of gauge x 00:00: TO INJECT [place] 5/16" N[place] 00 INSULIN Medica l EVERY DAY Branch amitriptyli Yes [id number] 10mg Take 1 Univers ne 10 mg 7-07 tablet by ity of tablet 00:00: mouth at [place] 00 bedtime. Medical Branch dapaglifloz 2022-0 Yes [id number] TAKE 1 Univers in 7-07 TABLET BY ity of (FARXIGA) 00:00: MOUTH [place] 10 mg 00 DAILY. Medical tablet STOP Branch JARDIANCE. ferrous 2022-0 Yes [id number] 324mg Take 1 Uni vers gluconate 7-07 tablet by ity o f 324 mg (38 00:00: mouth [place] mg iron) 00 daily with Medic al tablet breakfast. Branch Insulin 2022-0 Yes [id number] 10U inject 10 U nivers Detemir 7-07 Units ity of (LEVEMIR 00:00: [place] FLEXTOU[place] 00 skin at Medical U-100 bedtime. Branch INSULN) 100 unit/mL (3 mL) injection amitriptyli 2022-0 Yes [id number] 10mg Take 1 Univers ne 10 mg 7-07 tablet by ity of tablet 00:00: mouth at [place] 00 bedtime. Medical Branch dapaglifloz 2022-0 Yes [id number] TAKE 1 Univers in 7-07 TABLET BY ity of (FARXIGA) 00:00: MOUTH [place] 10 mg 00 DAILY. Medical tablet STOP Branch JARDIANCE. ferrous 2022-0 Yes [id number] 324mg Take 1 Uni vers gluconate 7-07 tablet by ity o f 324 mg (38 00:00: mouth [place] mg iron) 00 daily with Medic al tablet breakfast. Branch Insulin 2022-0 Yes [id number] 10U inject 10 U nivers Detemir 7-07 Units ity of (LEVEMIR 00:00: [place]LE[place] skin at Medical [facility] bedtime. Branch INSULN) 100 unit/mL (3 mL) injection amitriptyli 2022-0 Yes [id number] 10mg Take 1 Univers ne 10 mg 7-07 tablet by ity of tablet 00:00: mouth at [place] 00 bedtime. Medical Branch dapaglifloz 2022-0 Yes [id number] TAKE 1 Univers in 7-07 TABLET BY ity of (FARXIGA) 00:00: MOUTH [place] 10 mg 00 DAILY. Medical tablet STOP Branch JARDIANCE. ferrous 2022-0 Yes [id number] 324mg Take 1 Uni vers gluconate 7-07 tablet by ity o f 324 mg (38 00:00: mouth [place] mg iron) 00 daily with Medic al tablet breakfast. Branch Insulin 2022-0 Yes [id number] 10U inject 10 U nivers Detemir 7-07 Units ity of (LEVEMIR 00:00: [place] FLE[place] skin at [place] [address] bedtime. Branch INSULN) 100 unit/mL (3 mL) injection amitriptyli 3-0 Yes [id number] 10mg Take 1 Univers ne 10 mg 7-07 tablet by ity of tablet 00:00: mouth at [place] 00 bedtime. Medical Branch dapaglifloz 2022-0 Yes [id number] TAKE 1 Univers in 7-07 TABLET BY ity of (FARXIGA) 00:00: MOUTH [place] 10 mg 00 DAILY. Medical tablet STOP Branch JARDIANCE. ferrous 3-0 Yes [id number] 324mg Take 1 Uni vers gluconate 7-07 tablet by ity o f 324 mg (38 00:00: mouth [place] mg iron) 00 daily with Medic al tablet breakfast. Branch Insulin 2022-0 Yes [id number] 10U inject 10 U nivers Detemir 7-07 Units ity of (LEVEMIR 00:00: [place] FLEXT[place] skin at [place] [address] bedtime. Branch INSULN) 100 unit/mL (3 mL) injection amitriptyli 2022-0 Yes [id number] 10mg Take 1 Univers ne 10 mg 7-07 tablet by ity of tablet 00:00: mouth at [place] 00 bedtime. Medical Branch dapaglifloz 2022-0 Yes [id number] TAKE 1 Univers in 7-07 TABLET BY ity of (FARXIGA) 00:00: MOUTH [place] 10 mg 00 DAILY. Medical tablet STOP Branch JARDIANCE. ferrous 3-0 Yes [id number] 324mg Take 1 Uni vers gluconate 7-07 tablet by ity o f 324 mg (38 00:00: mouth [place] mg iron) 00 daily with Medic al tablet breakfast. Branch Insulin 3-0 Yes [id number] 10U inject 10 U nivers Detemir 7-07 Units ity of (LEVEMIR 00:00: [place] FLEXT[place] skin at [place] [address] bedtime. Branch INSULN) 100 unit/mL (3 mL) injection amitriptyli 3-0 Yes [id number] 10mg Take 1 Univers ne 10 mg 7-07 tablet by ity of tablet 00:00: mouth at [place] 00 bedtime. Medical Branch dapaglifloz 2023-0 Yes [id number] TAKE 1 Univers in 7-07 TABLET BY ity of (FARXIGA) 00:00: MOUTH [place] 10 mg 00 DAILY. Medical tablet STOP Branch JARDIANCE. ferrous 2022-0 Yes [id number] 324mg Take 1 Uni vers gluconate 7-07 tablet by ity o f 324 mg (38 00:00: mouth [place] mg iron) 00 daily with Medic al tablet breakfast. Branch Insulin 2022-0 Yes [id number] 10U inject 10 U nivers Detemir 7-07 Units ity of (LEVEMIR 00:00: [place] FLEXT[place] 00 skin at Medical U-100 bedtime. Branch INSULN) 100 unit/mL (3 mL) injection amitriptyli 2022-0 Yes [id number] 10mg Take 1 Univers ne 10 mg 7-07 tablet by ity of tablet 00:00: mouth at [place] 00 bedtime. Medical Branch dapaglifloz 2022-0 Yes [id number] TAKE 1 Univers in 7-07 TABLET BY ity of (FARXIGA) 00:00: MOUTH [place] 10 mg 00 DAILY. Medical tablet STOP Branch JARDIANCE. ferrous 2022-0 Yes [id number] 324mg Take 1 Uni vers gluconate 7-07 tablet by ity o f 324 mg (38 00:00: mouth [place] mg iron) 00 daily with Medic al tablet breakfast. Branch Insulin 2022-0 Yes [id number] 10U inject 10 U nivers Detemir 7-07 Units ity of (LEVEMIR 00:00: [place] FLEXT[place] 00 skin at Medical U-100 bedtime. Branch INSULN) 100 unit/mL (3 mL) injection amitriptyli 2022-0 Yes [id number] 10mg Take 1 Univers ne 10 mg 7-07 tablet by ity of tablet 00:00: mouth at [place] 00 bedtime. Medical Branch dapaglifloz 2022-0 Yes [id number] TAKE 1 Univers in 7-07 TABLET BY ity of (FARXIGA) 00:00: MOUTH [place] 10 mg 00 DAILY. Medical tablet STOP Branch JARDIANCE. ferrous 2022-0 Yes [id number] 324mg Take 1 Uni vers gluconate 7-07 tablet by ity o f 324 mg (38 00:00: mouth [place] mg iron) 00 daily with Medic al tablet breakfast. Branch Insulin Yes [id number] 10U inject 10 U nivers Detemir 7-07 Units ity of (LEVEMIR 00:00: [place] FLEXT[place] 00 skin at Medical U-100 bedtime. Branch INSULN) 100 unit/mL (3 mL) injection metoprolol Yes [id number] 25mg Take 1 U nivers succinate 6-30 tablet by ity o f XL 25 mg 24 00:00: [place] tablet 00 bedtime. Medica l Branch metoprolol Yes [id number] 25mg Take 1 U nivers succinate 6-30 tablet by ity o f XL 25 mg 24 00:00: [place] 00 bedtime. Medica l Branch metoprolol Yes [id number] 25mg Take 1 U nivers succinate 6-30 tablet by ity o f XL 25 mg 24 00:00: [place] 00 bedtime. Medica l Branch metoprolol Yes [id number] 25mg Take 1 U nivers succinate 6-30 tablet by ity o f XL 25 mg 24 00:[place]: [place] 00 bedtime. Medica l Branch metoprolol Yes [id number] 25mg Take 1 [facility] nivers succinate 6-30 tablet by ity o f XL 25 mg 24 00:00: mouth at [place] hr tablet 00 bedtime. [facility] metoprolol Yes [id number] 25mg Take 1 [facility] n[facility] succinate 6-30 tablet by ity o f XL 25 mg 24 00:00: mouth at [place] hr tablet 00 bedtime. [facility] metoprolol Yes [id number] 25mg Take 1 [facility] n[facility] succinate 6-30 tablet by [facility]y o f XL 25 mg 24 00:00: mouth at [place] hr tablet 00 bedtime. [facility] metoprolol 0 Yes [id number] 25mg Take 1 [facility] n[facility] succinate 6-30 tablet by [facility]y o f XL 25 mg 24 00:00: mouth [place] hr tablet 00 bedtime. [facility] metoprolol Yes [id number] 25mg Take 1 [facility] n[facility] succinate 6-30 tablet by [facility]y o f XL 25 mg 24 00:00: mouth [place] hr tablet 00 bedtime. [facility] metoprolol 3-0 Yes [id number] 25mg Take 1 [facility] n[facility] succinate 6-30 tablet by ity o f XL 25 mg 24 00:00: mouth [place] hr tablet 00 bedtime. [facility] polyethylen 2023-0 Yes [id number] 17g Take 17 g [facility] glycol 6-09 by mouth [facility] of 3350 17 00:00: in the [place] gram/dose 00 morning. Medica l powder Branch polyethylen 3-0 Yes [id number] 17g Take 17 g [facility] glycol 6-09 by mouth ity of 3350 17 00:00: in the [place] gram/dose 00 morning. Medica l powder Branch polyethylen 3-0 Yes [id number] 17g Take 17 g [facility] glycol 6-09 by mouth ity of 3350 17 00:00: in the [place] gram/dose 00 morning. Medica l powder Branch polyethylen 3-0 Yes [id number] 17g Take 17 g [facility] glycol 6-09 by mouth ity of 3350 17 00:00: in the [place] gram/dose 00 morning. Medica l powder Branch polyethylen 3-0 Yes [id number] 17g Take 17 g [facility] glycol 6-09 by mouth ity of 3350 17 00:00: in the [place] gram/dose 00 morning. Medica l powder Branch polyethylen 3-0 Yes [id number] 17g Take 17 g [facility] glycol 6-09 by mouth ity of 3350 17 00:00: in the [place] gram/dose 00 morning. Medica l powder Branch polyethylen 3-0 Yes [id number] 17g Take 17 g [facility] glycol 6-09 by mouth ity of 3350 17 00:00: in the [place] gram/dose 00 morning. Medica l powder Branch polyethylen 2023-0 Yes [id number] 17g Take 17 g [facility] glycol 6-09 by mouth ity of 3350 17 00:00: in the [place] gram/dose 00 morning. Medica l powder Branch polyethylen 2023-0 Yes [id number] 17g Take 17 g [facility] glycol 6-09 by mouth ity of 3350 17 00:00: in the [place] gram/dose 00 morning. Medica l powder Branch polyethylen 2022-0 Yes [id number] 17g Take 17 g [facility] glycol 6-09 by mouth ity of 3350 17 00:00: in the [place] gram/dose 00 morning. Medica l powder Branch polyethylen 2022-0 Yes [id number] 17g Take 17 g [facility] glycol 6-09 by mouth ity of 3350 17 00:00: in the [place] gram/dose 00 morning. Medica l powder Branch polyethylen 2022-0 Yes [id number] 17g Take 17 g [facility] glycol 6-09 by mouth ity of 3350 17 00:00: in the [place] gram/dose 00 morning. Medica l powder Branch polyethylen 2022-0 Yes [id number] 17g Take 17 g [facility] glycol 6-09 by mouth ity of 3350 17 00:00: in the [place] gram/dose 00 morning. Medica l powder Branch magnesium 2022-0 Yes [id number] TAKE 2 [facility] oxide 400 5-04 TABLETS BY ity of mg (241.3 00:00: MOUTH 4 [place] mg 00 TIMES Medical magnesium) DAILY Branch tablet magnesium 2022-0 Yes [id number] TAKE 2 [facility] oxide 400 5-04 TABLETS BY ity of mg (241.3 00:00: MOUTH 4 [place] mg 00 TIMES Medical magnesium) DAILY Branch tablet magnesium 2022-0 Yes [id number] TAKE 2 [facility] oxide 400 5-04 TABLETS BY ity of mg (241.3 00:00: MOUTH 4 [place] mg 00 TIMES Medical magnesium) DAILY Branch tablet magnesium 2022-0 Yes [id number] TAKE 2 [facility] oxide 400 5-04 TABLETS BY ity of mg (241.3 00:00: MOUTH 4 [place] mg 00 TIMES Medical magnesium) DAILY Branch tablet magnesium 2022-0 Yes [id number] TAKE 2 [facility] oxide 400 5-04 TABLETS BY ity of mg (241.3 00:00: MOUTH 4 [place] mg 00 TIMES Medical magnesium) DAILY Branch tablet magnesium 2022-0 Yes [id number] TAKE 2 [facility] oxide 400 5-04 TABLETS BY ity of mg (241.3 00:00: MOUTH 4 [place] mg 00 TIMES Medical magnesium) DAILY Branch tablet magnesium 2022-0 Yes [id number] TAKE 2 [facility] oxide 400 5-04 TABLETS BY ity of mg (241.3 00:00: MOUTH 4 [place] mg 00 TIMES Medical magnesium) DAILY Branch tablet magnesium 2022-0 Yes [id number] TAKE 2 [facility] n[facility] oxide 400 5-04 TABLETS BY ity of mg (241.3 00:00: MOUTH 4 [place] mg 00 TIMES Medical magnesium) DAILY Branch tablet magnesium 2022-0 Yes [id number] TAKE 2 [facility] oxide 400 5-04 TABLETS BY ity of mg (241.3 00:00: MOUTH 4 [place] mg 00 TIMES Medical magnesium) DAILY Branch tablet magnesium 2022- Yes [id number] TAKE 2 [facility] oxide 400 5-04 TABLETS BY ity of mg (241.3 00:00: MOUTH 4 [place] mg 00 TIMES Medical magnesium) DAILY Branch tablet magnesium Yes [id number] TAKE 2 [facility] oxide 400 5-04 TABLETS BY ity of mg (241.3 00:00: MOUTH 4 [place] mg 00 TIMES Medical magnesium) DAILY Branch tablet magnesium 2022-0 Yes [id number] TAKE 2 [facility] oxide 400 5-04 TABLETS BY ity of mg (241.3 00:00: MOUTH 4 [place] mg 00 TIMES Medical magnesium) DAILY Branch tablet magnesium 2022-0 Yes [id number] TAKE 2 [facility] oxide 400 5-04 TABLETS BY ity of mg (241.3 00:00: MOUTH 4 [place] mg 00 TIMES Medical magnesium) DAILY Branch tablet magnesium 2022-0 Yes [id number] TAKE 2 [facility] n[facility] oxide 400 5-04 TABLETS BY ity of mg (241.3 00:00: MOUTH 4 [place] mg 00 TIMES Medical magnesium) DAILY Branch tablet magnesium 2022-0 Yes [id number] TAKE 2 [facility] n[facility] oxide 400 5-04 TABLETS BY ity of mg (241.3 00:00: MOUTH 4 [place] mg 00 TIMES Medical magnesium) DAILY Branch tablet magnesium 2022-0 Yes [id number] TAKE 2 U n[facility] oxide 400 5-04 TABLETS BY ity of mg (241.3 00:00: MOUTH 4 [place] mg 00 TIMES Medical magnesium) DAILY Branch tablet magnesium 2022-0 Yes [id number] TAKE 2 [facility] nivers oxide 400 5-04 TABLETS BY ity of mg (241.3 00:00: MOUTH 4 [place] mg 00 TIMES Medical magnesium) DAILY Branch tablet magnesium 2022-0 Yes [id number] TAKE 2 [facility] n[facility] oxide 400 5-04 TABLETS BY ity of mg (241.3 00:00: MOUTH 4 [place] mg 00 TIMES Medical magnesium) DAILY Branch tablet magnesium Yes [id number] TAKE 2 [facility] oxide 400 5-04 TABLETS BY ity of mg (241.3 00:00: MOUTH 4 [place] mg 00 TIMES Medical magnesium) DAILY Branch tablet Insulin Yes [id number] 7U inject 7 [facility] Detemir 4-28 Units ity of (LEVEMIR 00:00: [place] FLEXTOUCH 00 skin at [facility] U-100 bedtime. Branch INSULN) 100 unit/mL (3 mL) injection NIFEdipine Yes [id number] 60mg Take 1 [facility] XL 60 mg 24 4-28 tablet by [facility] hr tablet 00:00: [place] 00 the [facility] morning. Branch tiZANidine Yes [id number] 2mg Take 1 [facility] 2 mg tablet 4-28 tablet by ity of 00:00: mouth [place] 00 every 6 Medical (six) Branch hours as needed for Pain (scale 4-6). dulaglutide Yes [id number] INJECT [facility] (TRULICITY) 4-28 1.5MG (1 ity of 1.5 mg/0.5 00:00: PEN) [place] mL PnIj 00 SUBCUTANEO Medica l USLY EVERY Branch WEEK meloxicam 0 Yes [id number] 7.5mg Take 1 [facility] (MOBIC) 7.5 4-28 tablet by ity of mg tablet 00:00: mouth once [place] 00 daily as Medical needed for Branch Pain (scale 7-10) (use sparingly due to side effects). Insulin Yes [id number] 7U inject 7 [facility] Detemir 4-28 Units ity of (LEVEMIR 00:00: [place] FLEXTOUCH 00 skin at Medical U-100 bedtime. Branch INSULN) 100 unit/mL (3 mL) injection NIFEdipine 0 Yes [id number] 60mg Take 1 [facility] XL 60 mg 24 4-28 tablet by [facility] hr tablet 00:00: [place] 00 the Medical morning. Branch tiZANidine Yes [id number] 2mg Take 1 [facility] 2 mg tablet 4-28 tablet by ity of 00:00: mouth [place] 00 every 6 Medical (six) Branch hours as needed for Pain (scale 4-6). dulaglutide Yes [id number] INJECT [facility] (TRULICITY) 4-28 1.5MG (1 ity of 1.5 mg/0.5 00:00: PEN) [place] mL PnIj 00 SUBCUTANEO Medica l USLY EVERY Branch WEEK meloxicam Yes [id number] 7.5mg Take 1 [facility] (MOBIC) 7.5 4-28 tablet by ity of mg tablet 00:00: mouth once [place] 00 daily as Medical needed for Branch Pain (scale 7-10) (use sparingly due to side effects). Insulin Yes [id number] 7U inject 7 [facility] Detemir 4-28 Units ity of (LEVEMIR 00:00: [place] FLEXTOUCH 00 skin at Medical U-100 bedtime. Branch INSULN) 100 unit/mL (3 mL) injection NIFEdipine Yes [id number] 60mg Take 1 [facility] XL 60 mg 24 4-28 tablet by [facility] hr tablet 00:00: [place] 00 the Medical morning. Branch tiZANidine Yes [id number] 2mg Take 1 [facility] 2 mg tablet 4-28 tablet by ity of 00:00: mouth [place] 00 every 6 Medical (six) Branch hours as needed for Pain (scale 4-6). dulaglutide Yes [id number] INJECT [facility] (TRULICITY) 4-28 1.5MG (1 ity of 1.5 mg/0.5 00:00: PEN) [place] mL PnIj 00 SUBCUTANEO Medica l USLY EVERY Branch WEEK meloxicam Yes [id number] 7.5mg Take 1 [facility] (MOBIC) 7.5 4-28 tablet by ity of mg tablet 00:00: mouth once [place] 00 daily as Medical needed for Branch Pain (scale 7-10) (use sparingly due to side effects). Insulin Yes [id number] 7U inject 7 [facility] Detemir 4-28 Units ity of (LEVEMIR 00:00: [place] FLEXTOUCH 00 skin at Medical U-100 bedtime. Branch INSULN) 100 unit/mL (3 mL) injection NIFEdipine 2022-0 Yes [id number] 60mg Take 1 [facility] XL 60 mg 24 4-28 tablet by [facility] hr tablet 00:00: [place] 00 the [facility] morning. Branch tiZANidine 0 Yes [id number] 2mg Take 1 [facility] 2 mg tablet 4-28 tablet by ity of 00:00: mouth [place] 00 every 6 Medical (six) Branch hours as needed for Pain (scale 4-6). dulaglutide Yes [id number] INJECT [facility] (TRULICITY) 4-28 1.5MG (1 ity of 1.5 mg/0.5 00:00: PEN) [place] mL PnIj 00 SUBCUTANEO Medica l USLY EVERY Branch WEEK meloxicam Yes [id number] 7.5mg Take 1 [facility] (MOBIC) 7.5 4-28 tablet by ity of mg tablet 00:00: mouth once [place] 00 daily as Medical needed for Branch Pain (scale 7-10) (use sparingly due to side effects). Insulin Yes [id number] USE [facility] [place], 4-28 DIRECTED ity of Disposable, 00:00: TO INJECT [place] (DROPLET 00 INSULIN Medical PEN NEEDLE) ONCE DAILY Br anch 31 gauge x 5/16" Ndle Insulin Yes [id number] 7U inject 7 Un [facility] Detemir 4-28 Units ity of (LEVEMIR 00:00: under the [facility] FLEXTOUCH 00 skin at Medical U-100 bedtime. Branch INSULN) 100 unit/mL (3 mL) injection NIFEdipine 2022- Yes [id number] 60mg Take 1 [facility] nivers XL 60 mg 24 4-28 tablet by [facility] of hr tablet 00:00: mouth [place] 00 the Medical morning. Branch tiZANidine 2022-0 Yes [id number] 2mg Take 1 [facility] nivers 2 mg tablet 4-28 tablet by ity of 00:00: mouth [place] 00 every 6 Medical (six) Branch hours as needed for Pain (scale 4-6). dulaglutide 0 Yes [id number] INJECT [facility] (TRULICITY) 4-28 1.5MG (1 ity of 1.5 mg/0.5 00:00: PEN) [place] mL PnIj 00 SUBCUTANEO Medica l USLY EVERY Branch WEEK meloxicam Yes [id number] 7.5mg Take 1 [facility] (MOBIC) 7.5 4-28 tablet by ity of mg tablet 00:00: mouth once [place] 00 daily as Medical needed for Branch Pain (scale 7-10) (use sparingly due to side effects). Insulin Yes [id number] USE [facility] [place], 4-28 DIRECTED ity of Disposable, 00:00: TO INJECT [place] (DROPLET 00 INSULIN Medical PEN NEEDLE) ONCE DAILY Br anch 31 gauge x 5/16" Ndle Insulin Yes [id number] 7U inject 7 Un [facility] Detemir 4-28 Units ity of (LEVEMIR 00:00: [place] FLEXTOUCH 00 skin at Medical U-100 bedtime. Branch INSULN) 100 unit/mL (3 mL) injection NIFEdipine Yes [id number] 60mg Take 1 [facility] nivers XL 60 mg 24 4-28 tablet by [facility] of hr tablet 00:00: mouth [place] 00 the Medical morning. Branch tiZANidine Yes [id number] 2mg Take 1 U nivers 2 mg tablet 4-28 tablet by ity of 00:00: mouth [place] 00 every 6 Medical (six) Branch hours as needed for Pain (scale 4-6). dulaglutide Yes [id number] INJECT [facility] (TRULICITY) 4-28 1.5MG (1 ity of 1.5 mg/0.5 00:00: PEN) [place] mL PnIj 00 SUBCUTANEO Medica l USLY EVERY Branch WEEK meloxicam Yes [id number] 7.5mg Take 1 [facility] (MOBIC) 7.5 4-28 tablet by ity of mg tablet 00:00: mouth once [place] 00 daily as Medical needed for Branch Pain (scale 7-10) (use sparingly due to side effects). Insulin Yes [id number] USE [facility] [place], 4-28 DIRECTED ity of Disposable, 00:00: TO INJECT [place] (DROPLET 00 INSULIN Medical PEN NEEDLE) ONCE DAILY Br anch 31 gauge x 5/16" Ndle Insulin 0 Yes [id number] 7U inject 7 Un [facility] Detemir 4-28 Units ity of (LEVEMIR 00:00: [place] FLEXTOUCH 00 skin at Medical U-100 bedtime. Branch INSULN) 100 unit/mL (3 mL) injection NIFEdipine 2022-0 Yes [id number] 60mg Take 1 U nivers XL 60 mg 24 4-28 tablet by [facility] of hr tablet 00:00: mouth [place] 00 the Medical morning. Branch tiZANidine 0 Yes [id number] 2mg Take 1 U nivers 2 mg tablet 4-28 tablet by ity of 00:00: mouth [place] 00 every 6 Medical (six) Branch hours as needed for Pain (scale 4-6). dulaglutide Yes [id number] INJECT [facility] (TRULICITY) 4-28 1.5MG (1 ity of 1.5 mg/0.5 00:00: PEN) [place] mL PnIj 00 SUBCUTANEO Medica l USLY EVERY Branch WEEK meloxicam 0 Yes [id number] 7.5mg Take 1 [facility] (MOBIC) 7.5 4-28 tablet by ity of mg tablet 00:00: mouth once [place] 00 daily as Medical needed for Branch Pain (scale 7-10) (use sparingly due to side effects). Insulin Yes [id number] USE [facility] [place], 4-28 DIRECTED ity of Disposable, 00:00: TO INJECT [place] (DROPLET 00 INSULIN Medical PEN NEEDLE) ONCE DAILY Br anch 31 gauge x 5/16" Ndle Insulin 0 Yes [id number] 7U inject 7 Un [facility] Detemir 4-28 Units ity of (LEVEMIR 00:00: [place] FLEXTOUCH 00 skin at Medical U-100 bedtime. Branch INSULN) 100 unit/mL (3 mL) injection NIFEdipine 2022-0 Yes [id number] 60mg Take 1 U nivers XL 60 mg 24 4-28 tablet by [facility] of hr tablet 00:00: mouth [place] 00 the Medical morning. Branch tiZANidine 2022-0 Yes [id number] 2mg Take 1 U nivers 2 mg tablet 4-28 tablet by ity of 00:00: mouth [place] 00 every 6 Medical (six) Branch hours as needed for Pain (scale 4-6). dulaglutide Yes [id number] INJECT [facility] (TRULICITY) 4-28 1.5MG (1 ity of 1.5 mg/0.5 00:00: PEN) [place] mL PnIj 00 SUBCUTANEO Medica l USLY EVERY Branch WEEK meloxicam Yes [id number] 7.5mg Take 1 [facility] (MOBIC) 7.5 4-28 tablet by ity of mg tablet 00:00: mouth once [place] 00 daily as Medical needed for Branch Pain (scale 7-10) (use sparingly due to side effects). Insulin Yes [id number] USE [facility] [place], 4-28 DIRECTED ity of Disposable, 00:00: TO INJECT [place] (DROPLET 00 INSULIN Medical PEN NEEDLE) ONCE DAILY Br anch 31 gauge x 5/16" Ndle Insulin Yes [id number] 7U inject 7 Un [facility] Detemir 4-28 Units ity of (LEVEMIR 00:00: under the [facility] FLEXTOUCH 00 skin at Medical U-100 bedtime. Branch INSULN) 100 unit/mL (3 mL) injection NIFEdipine Yes [id number] 60mg Take 1 U nivers XL 60 mg 24 4-28 tablet by ity of hr tablet 00:00: mouth [place] 00 the Medical morning. Branch tiZANidine Yes [id number] 2mg Take 1 U nivers 2 mg tablet 4-28 tablet by ity of 00:00: mouth [place] 00 every 6 Medical (six) Branch hours as needed for Pain (scale 4-6). dulaglutide Yes [id number] INJECT [facility] (TRULICITY) 4-28 1.5MG (1 ity of 1.5 mg/0.5 00:00: PEN) [place] mL PnIj 00 SUBCUTANEO Medica l USLY EVERY Branch WEEK meloxicam Yes [id number] 7.5mg Take 1 [facility] (MOBIC) 7.5 4-28 tablet by ity of mg tablet 00:00: mouth once [place] 00 daily as Medical needed for Branch Pain (scale 7-10) (use sparingly due to side effects). Insulin Yes [id number] USE [facility] [place], 4-28 DIRECTED ity of Disposable, 00:00: TO INJECT [place] (DROPLET 00 INSULIN Medical PEN NEEDLE) ONCE DAILY Br anch 31 gauge x 5/16" Ndle Insulin Yes [id number] 7U inject 7 Un [place] Detemir 4-28 Units ity of (LEVEMIR 00:00: [place] FLEXTOUCH 00 skin at Medical U-100 bedtime. Branch INSULN) 100 unit/mL (3 mL) injection NIFEdipine Yes [id number] 60mg Take 1 U nivers XL 60 mg 24 4-28 tablet by ity of hr tablet 00:00: mouth [place] 00 the Medical morning. Branch tiZANidine Yes [id number] 2mg Take 1 U nivers 2 mg tablet 4-28 tablet by ity of 00:00: mouth [place] 00 every 6 Medical (six) Branch hours as needed for Pain (scale 4-6). dulaglutide Yes [id number] INJECT [facility] (TRULICITY) 4-28 1.5MG (1 ity of 1.5 mg/0.5 00:00: PEN) [place] mL PnIj 00 SUBCUTANEO Medica l USLY EVERY Branch WEEK meloxicam Yes [id number] 7.5mg Take 1 [facility] (MOBIC) 7.5 4-28 tablet by ity of mg tablet 00:00: mouth once [place] 00 daily as Medical needed for Branch Pain (scale 7-10) (use sparingly due to side effects). Insulin Yes [id number] USE [facility] [place], 4-28 DIRECTED ity of Disposable, 00:00: TO INJECT [place] (DROPLET 00 INSULIN Medical PEN NEEDLE) ONCE DAILY Br anch 31 gauge x 5/16" Ndle Insulin Yes [id number] 7U inject 7 Un [place] Detemir 4-28 Units ity of (LEVEMIR 00:00: [place] FLEXTOUCH 00 skin at Medical U-100 bedtime. Branch INSULN) 100 unit/mL (3 mL) injection NIFEdipine Yes [id number] 60mg Take 1 U nivers XL 60 mg 24 4-28 tablet by [facility]y of hr tablet 00:00: mouth [place] 00 the Medical morning. Branch tiZANidine Yes [id number] 2mg Take 1 U nivers 2 mg tablet 4-28 tablet by ity of 00:00: mouth [place] 00 every 6 Medical (six) Branch hours as needed for Pain (scale 4-6). dulaglutide Yes [id number] INJECT [facility] (TRULICITY) 4-28 1.5MG (1 ity of 1.5 mg/0.5 00:00: PEN) [place] mL PnIj 00 SUBCUTANEO Medica l USLY EVERY Branch WEEK meloxicam Yes [id number] 7.5mg Take 1 [facility] (MOBIC) 7.5 4-28 tablet by ity of mg tablet 00:00: mouth once [place] 00 daily as Medical needed for Branch Pain (scale 7-10) (use sparingly due to side effects). Insulin Yes [id number] USE [facility] [place], 4-28 DIRECTED ity of Disposable, 00:00: TO INJECT [place] (DROPLET 00 INSULIN Medical PEN NEEDLE) ONCE DAILY Br anch 31 gauge x 5/16" Ndle Insulin Yes [id number] 7U inject 7 Un [facility] Detemir 4-28 Units ity of (LEVEMIR 00:00[facility] skin at Medical U-100 bedtime. Branch INSULN) 100 unit/mL (3 mL) injection NIFEdipine Yes [id number] 60mg Take 1 U nivers XL 60 mg 24 4-28 tablet by ity of hr tablet 00:00: mouth [place] 00 the Medical morning. Branch tiZANidine Yes [id number] 2mg Take 1 U nivers 2 mg tablet 4-28 tablet by ity of 00:00: mouth [place] 00 every 6 Medical (six) Branch hours as needed for Pain (scale 4-6). dulaglutide Yes [id number] INJECT [facility] (TRULICITY) 4-28 1.5MG (1 ity of 1.5 mg/0.5 00:00: PEN) [place] mL PnIj 00 SUBCUTANEO Medica l USLY EVERY Branch WEEK meloxicam Yes [id number] 7.5mg Take 1 [facility] (MOBIC) 7.5 4-28 tablet by ity of mg tablet 00:00: mouth once [place] 00 daily as Medical needed for Branch Pain (scale 7-10) (use sparingly due to side effects). Insulin Yes [id number] USE [facility] [place], 4-28 DIRECTED ity of Disposable, 00:00: TO INJECT [place] (DROPLET 00 INSULIN Medical PEN NEEDLE) ONCE DAILY Br anch 31 gauge x 5/16" Ndle Insulin Yes [id number] 7U inject 7 Un [facility] Detemir 4-28 Units ity of (LEVEMIR 00:00: [place] FLEXTOUCH 00 skin at Medical U-100 bedtime. Branch INSULN) 100 unit/mL (3 mL) injection NIFEdipine Yes [id number] 60mg Take 1 U nivers XL 60 mg 24 4-28 tablet by ity of hr tablet 00:00: mouth [place] 00 the Medical morning. Branch tiZANidine Yes [id number] 2mg Take 1 U nivers 2 mg tablet 4-28 tablet by ity of 00:00: mouth [place] 00 every 6 Medical (six) Branch hours as needed for Pain (scale 4-6). dulaglutide Yes [id number] INJECT [facility] (TRULICITY) 4-28 1.5MG (1 ity of 1.5 mg/0.5 00:00: PEN) [place] mL PnIj 00 SUBCUTANEO Medica l USLY EVERY Branch WEEK meloxicam Yes [id number] 7.5mg Take 1 [facility] (MOBIC) 7.5 4-28 tablet by ity of mg tablet 00:00: mouth once [place] 00 daily as Medical needed for Branch Pain (scale 7-10) (use sparingly due to side effects). Insulin Yes [id number] USE [facility] [place], 4- DIRECTED ity of Disposable, 00:00: TO INJECT [place] (DROPLET 00 INSULIN Medical PEN NEEDLE) ONCE DAILY Br anch 31 gauge x 5/16" Ndle Insulin Yes [id number] 7U inject 7 Un [facility] Detemir 4-28 Units ity of (LEVEMIR 00:00: [place] FLEXTOUCH 00 skin at Medical U-100 bedtime. Branch INSULN) 100 unit/mL (3 mL) injection NIFEdipine Yes [id number] 60mg Take 1 U nivers XL 60 mg 24 4-28 tablet by [facility]y of hr tablet 00:00: mouth [place] 00 the Medical morning. Branch tiZANidine Yes [id number] 2mg Take 1 U nivers 2 mg tablet 4-28 tablet by ity of 00:00: mouth [place] 00 every 6 Medical (six) Branch hours as needed for Pain (scale 4-6). dulaglutide Yes [id number] INJECT [facility] (TRULICITY) 4-28 1.5MG (1 ity of 1.5 mg/0.5 00:00: PEN) [place] mL PnIj 00 SUBCUTANEO Medica l USLY EVERY Branch WEEK meloxicam Yes [id number] 7.5mg Take 1 [facility] (MOBIC) 7.5 4-28 tablet by ity of mg tablet 00:00: mouth once [place] 00 daily as Medical needed for Branch Pain (scale 7-10) (use sparingly due to side effects). Insulin Yes [id number] USE [facility] [place], 4-28 DIRECTED ity of Disposable, 00:00: TO INJECT [place] (DROPLET 00 INSULIN Medical PEN NEEDLE) ONCE DAILY Br anch 31 gauge x 5/16" Ndle Insulin Yes [id number] 7U inject 7 Un [place] Detemir 4-28 Units ity of (LEVEMIR 00:00: under the s FLEXTOUCH 00 skin at Medical U-100 bedtime. Branch INSULN) 100 unit/mL (3 mL) injection NIFEdipine Yes [id number] 60mg Take 1 U nivers XL 60 mg 24 4-28 tablet by ity of hr tablet 00:00: mouth [place] 00 the Medical morning. Branch tiZANidine 0 Yes [id number] 2mg Take 1 U nivers 2 mg tablet 4-28 tablet by ity of 00:00: mouth [place] 00 every 6 Medical (six) Branch hours as needed for Pain (scale 4-6). dulaglutide Yes [id number] INJECT [facility] (TRULICITY) 4-28 1.5MG (1 ity of 1.5 mg/0.5 00:00: PEN) [place] mL PnIj 00 SUBCUTANEO Medica l USLY EVERY Branch WEEK meloxicam Yes [id number] 7.5mg Take 1 [facility] (MOBIC) 7.5 4-28 tablet by ity of mg tablet 00:00: mouth once [place] 00 daily as Medical needed for Branch Pain (scale 7-10) (use sparingly due to side effects). Insulin Yes [id number] USE [facility] [place], 4-28 DIRECTED ity of Disposable, 00:00: TO INJECT [place] (DROPLET 00 INSULIN Medical PEN NEEDLE) ONCE DAILY Br anch 31 gauge x 5/16" Ndle Insulin Yes [id number] 7U inject 7 Un [facility] Detemir 4-28 Units ity of (LEVEMIR 00:00: [place] FLEXTOUCH 00 skin at Medical U-100 bedtime. Branch INSULN) 100 unit/mL (3 mL) injection NIFEdipine Yes [id number] 60mg Take 1 U nivers XL 60 mg 24 4-28 tablet by [facility] of hr tablet 00:00: mouth [place] 00 the Medical morning. Branch tiZANidine Yes [id number] 2mg Take 1 U nivers 2 mg tablet 4-28 tablet by ity of 00:00: mouth [place] 00 every 6 Medical (six) Branch hours as needed for Pain (scale 4-6). dulaglutide Yes [id number] INJECT [facility] (TRULICITY) 4-28 1.5MG (1 ity of 1.5 mg/0.5 00:00: PEN) [place] mL PnIj 00 SUBCUTANEO Medica l USLY EVERY Branch WEEK meloxicam Yes [id number] 7.5mg Take 1 [facility] (MOBIC) 7.5 4-28 tablet by ity of mg tablet 00:00: mouth once [place] 00 daily as Medical needed for Branch Pain (scale 7-10) (use sparingly due to side effects). Insulin Yes [id number] USE [facility] [place], 4-28 DIRECTED ity of Disposable, 00:00: TO INJECT [place] (DROPLET 00 INSULIN Medical PEN NEEDLE) ONCE DAILY Br anch 31 gauge x 5/16" Ndle NIFEdipine 2022-0 Yes [id number] 60mg Take 1 U nivers XL 60 mg 24 4-28 tablet by [facility]y of hr tablet 00:00: mouth [place] 00 the Medical morning. Branch tiZANidine 0 Yes [id number] 2mg Take 1 U nivers 2 mg tablet 4-28 tablet by ity of 00:00: mouth [place] 00 every 6 Medical (six) Branch hours as needed for Pain (scale 4-6). dulaglutide Yes [id number] INJECT [facility] (TRULICITY) 4-28 1.5MG (1 ity of 1.5 mg/0.5 00:00: PEN) [place] mL PnIj 00 SUBCUTANEO Medica l USLY EVERY Branch WEEK meloxicam 0 Yes [id number] 7.5mg Take 1 [facility] (MOBIC) 7.5 4-28 tablet by ity of mg tablet 00:00: mouth once [place] 00 daily as Medical needed for Branch Pain (scale 7-10) (use sparingly due to side effects). Insulin Yes [id number] USE [facility] [place], 4-28 DIRECTED ity of Disposable, 00:00: TO INJECT [place] (DROPLET 00 INSULIN Medical PEN NEEDLE) ONCE DAILY Br anch 31 gauge x 5/16" Ndle NIFEdipine Yes [id number] 60mg Take 1 U nivers XL 60 mg 24 4-28 tablet by [facility]y of hr tablet 00:00: mouth [place] 00 the Medical morning. Branch tiZANidine Yes [id number] 2mg Take 1 U nivers 2 mg tablet 4-28 tablet by ity of 00:00: mouth [place] 00 every 6 Medical (six) Branch hours as needed for Pain (scale 4-6). dulaglutide 0 Yes [id number] INJECT [facility] (TRULICITY) 4-28 1.5MG (1 ity of 1.5 mg/0.5 00:00: PEN) [place] mL PnIj 00 SUBCUTANEO Medica l USLY EVERY Branch WEEK meloxicam 2022-0 Yes [id number] 7.5mg Take 1 [facility] (MOBIC) 7.5 4-28 tablet by ity of mg tablet 00:00: mouth once [place] 00 daily as Medical needed for Branch Pain (scale 7-10) (use sparingly due to side effects). Insulin Yes [id number] USE [facility] [place], 4-28 DIRECTED ity of Disposable, 00:00: TO INJECT [place] (DROPLET 00 INSULIN Medical PEN NEEDLE) ONCE DAILY Br anch 31 gauge x 5/16" Ndle NIFEdipine 2022-0 Yes [id number] 60mg Take 1 U nivers XL 60 mg 24 4-28 tablet by [facility] of hr tablet 00:00: [place] 00 the Medical morning. Branch tiZANidine 0 Yes [id number] 2mg Take 1 [facility] nivers 2 mg tablet 4-28 tablet by ity of 00:00: mouth [place] 00 every 6 Medical (six) Branch hours as needed for Pain (scale 4-6). dulaglutide Yes [id number] INJECT [facility] (TRULICITY) 4-28 1.5MG (1 ity of 1.5 mg/0.5 00:00: PEN) [place] mL PnIj 00 SUBCUTANEO Medica l USLY EVERY Branch WEEK meloxicam 0 Yes [id number] 7.5mg Take 1 [facility] (MOBIC) 7.5 4-28 tablet by ity of mg tablet 00:00: mouth once [place] 00 daily as Medical needed for Branch Pain (scale 7-10) (use sparingly due to side effects). Insulin Yes [id number] USE [facility] [place], 4-28 DIRECTED ity of Disposable, 00:00: TO INJECT [place] (DROPLET 00 INSULIN Medical PEN NEEDLE) ONCE DAILY Br anch 31 gauge x 5/16" Ndle NIFEdipine 2022-0 Yes [id number] 60mg Take 1 [facility] nivers XL 60 mg 24 4-28 tablet by [facility] hr tablet 00:00: mouth [place] 00 the Medical morning. Branch tiZANidine 0 Yes [id number] 2mg Take 1 [facility] nivers 2 mg tablet 4-28 tablet by ity of 00:00: mouth [place] 00 every 6 Medical (six) Branch hours as needed for Pain (scale 4-6). dulaglutide 0 Yes [id number] INJECT [facility] (TRULICITY) 4-28 1.5MG (1 ity of 1.5 mg/0.5 00:00: PEN) [place] mL PnIj 00 SUBCUTANEO Medica l USLY EVERY Branch WEEK meloxicam Yes [id number] 7.5mg Take 1 [facility] (MOBIC) 7.5 4-28 tablet by ity of mg tablet 00:00: mouth once [place] 00 daily as Medical needed for Branch Pain (scale 7-10) (use sparingly due to side effects). Insulin Yes [id number] USE [facility] [place], 4-28 DIRECTED ity of Disposable, 00:00: TO INJECT [place] (DROPLET INSULIN Medical PEN NEEDLE) ONCE DAILY Br anch 31 gauge x 5/16" Ndle NIFEdipine Yes [id number] 60mg Take 1 [facility] nivers XL 60 mg 24 4-28 tablet by [facility] hr tablet 00:00: mouth [place] 00 the Medical morning. Branch tiZANidine Yes [id number] 2mg Take 1 [facility] nivers 2 mg tablet 4-28 tablet by ity of 00:00: mouth [place] every 6 Medical (six) Branch hours as needed for Pain (scale 4-6). dulaglutide Yes [id number] INJECT [facility] (TRULICITY) 4-28 1.5MG (1 ity of 1.5 mg/0.5 00:00: PEN) [place] mL PnIj 00 SUBCUTANEO Medica l USLY EVERY Branch WEEK meloxicam Yes [id number] 7.5mg Take 1 [facility] (MOBIC) 7.5 4-28 tablet by ity of mg tablet 00:00: mouth once [place] 00 daily as Medical needed for Branch Pain (scale 7-10) (use sparingly due to side effects). NIFEdipine Yes [id number] 60mg Take 1 [facility] nivers XL 60 mg 24 4-28 tablet by [facility] hr tablet 00:00: [place] 00 the Medical morning. Branch tiZANidine 0 Yes [id number] 2mg Take 1 [facility] nivers 2 mg tablet 4-28 tablet by ity of 00:00: mouth [place] 00 every 6 Medical (six) Branch hours as needed for Pain (scale 4-6). dulaglutide 0 Yes [id number] INJECT [facility] (TRULICITY) 4-28 1.5MG (1 ity of 1.5 mg/0.5 00:00: PEN) [place] mL PnIj 00 SUBCUTANEO Medica l USLY EVERY Branch WEEK meloxicam Yes [id number] 7.5mg Take 1 [facility] (MOBIC) 7.5 4-28 tablet by ity of mg tablet 00:00: mouth once [place] 00 daily as Medical needed for Branch Pain (scale 7-10) (use sparingly due to side effects). NIFEdipine 0 Yes [id number] 60mg Take 1 [facility] nivers XL 60 mg 24 4-28 tablet by [facility] hr tablet 00:00: mouth [place] 00 the Medical morning. Branch tiZANidine Yes [id number] 2mg Take 1 [facility] nivers 2 mg tablet 4-28 tablet by ity of 00:00: mouth [place] 00 every 6 Medical (six) Branch hours as needed for Pain (scale 4-6). dulaglutide Yes [id number] INJECT [facility] (TRULICITY) 4-28 1.5MG (1 ity of 1.5 mg/0.5 00:00: PEN) [place] mL PnIj 00 SUBCUTANEO Medica l USLY EVERY Branch WEEK meloxicam Yes [id number] 7.5mg Take 1 [facility] (MOBIC) 7.5 4-28 tablet by ity of mg tablet 00:00: mouth once [place] 00 daily as Medical needed for Branch Pain (scale 7-10) (use sparingly due to side effects). NIFEdipine Yes [id number] 60mg Take 1 [facility] nivers XL 60 mg 24 4-28 tablet by [facility] of hr tablet 00:00: mouth [place] 00 the Medical morning. Branch tiZANidine 0 Yes [id number] 2mg Take 1 U nivers 2 mg tablet 4-28 tablet by ity of 00:00: mouth [place] 00 every 6 Medical (six) Branch hours as needed for Pain (scale 4-6). dulaglutide 2022-0 Yes [id number] INJECT [facility] (TRULICITY) 4-28 1.5MG (1 ity of 1.5 mg/0.5 00:00: PEN) [place] mL PnIj 00 SUBCUTANEO Medica l USLY EVERY Branch WEEK meloxicam Yes [id number] 7.5mg Take 1 [facility] (MOBIC) 7.5 08-09 tablet by ity of mg tablet 00:00: mouth once [place] 00 daily as Medical needed for Branch Pain (scale 7-10) (use sparingly due to side effects). Insulin 2022- No [id number] USE [facility] [place], 08-0914 DIRECTED ity of Disposable, 00:00: 00:00 TO INJECT [place] (DROPLET 00 :00 INSULIN Medical PEN NEEDLE) ONCE DAILY Br anch 31 gauge x 5/16" Ndle Insulin 2022- No [id number] 7U inject 7 U nivers Detem[place] 08-09-07 Units ity of (LEVEMIR 00:00: 00:00 under the [place] FLEXTOUCH 00 :00 skin at Medical U-100 bedtime. Branch INSULN) 100 unit/mL (3 mL) injection Insulin 2022- No [id number] 7U inject 7 U nivers Detemir 08-09-07 Units ity of (LEVEMIR 00:00: 00:00 under the [place] as FLEXTOUCH 00 :00 skin at Medical U-100 bedtime. Branch INSULN) 100 unit/mL (3 mL) injection tiZANidine 2022- No [id number] 2mg Take 1 [facility] 2 mg tablet 08-09 tablet by it y of 00:00: 00:00 mouth [place] 00 :00 every 6 Medical (six) Branch hours as needed for Pain (scale 4-6). tiZANidine 2022- No [id number] 2mg Take 1 [facility] 2 mg tablet 08-09 tablet by it y of 00:00: 00:00 mouth [place] 00 :00 every 6 Medical (six) Branch hours as needed for Pain (scale 4-6). azelastine Yes [id number] 1{spray Use 1 [facility] 137 mcg 3-30 } [place] in ity of (0.1 %) 00:00: each [place] nasal spray 00 nostril in Me dical the Branch morning and 1 [place] in the evening. Use in each nostril as directed benzonatate Yes [id number] 100mg Take 1 [facility] (TESSALON 3-30 capsule by ity of PERLES) 100 00:00: mouth [place] mg capsule 00 every 8 Medica l (eight) Branch hours as needed for Cough. azelastine 2022-0 Yes [id number] 1{spray Use 1 [facility] 137 mcg 3-30 } [place] in ity of (0.1 %) 00:00: each [place] nasal spray 00 nostril in Me dical the Branch morning and 1 [place] in the evening. Use in each nostril as directed benzonatate 2022-0 Yes [id number] 100mg Take 1 [facility] (TESSALON 3-30 capsule by ity of PERLES) 100 00:00: mouth [place] mg capsule 00 every 8 Medica l (eight) Branch hours as needed for Cough. azelastine 2022-0 Yes [id number] 1{spray Use 1 [facility] 137 mcg 3-30 } [place] in ity of (0.1 %) 00:00: each [place] nasal [place] the [place] morning and 1 [place] in the evening. Use in each nostril as directed benzonatate 2022-0 Yes [id number] 100mg Take 1 [facility] (TESSALON 3-30 capsule by ity of PERL[employer] Trends) 100 00:00: mouth [place] mg capsule 00 every 8 Medica l (eight) Branch hours as needed for Cough. azelastine 2022-0 Yes [id number] 1{spray Use 1 [facility] 137 mcg 3-30 } [place] in ity of (0.1 %) 00:00: each [place] nasal spray [place] the [place] morning and 1 [place] in the evening. Use in each nostril as directed benzonatate 2022-0 Yes [id number] 100mg Take 1 [facility] (TESSALON 3-30 capsule by ity of PERLES) 100 00:00: mouth [place] mg capsule 00 every 8 Medica l (eight) Branch hours as needed for Cough. azelastine 2022-0 Yes [id number] 1{spray Use 1 [facility] 137 mcg 3-30 } [place] in ity of (0.1 %) 00:00: each [place] nasal spray 00 nostril in Me dical the Branch morning and 1 [place] in the evening. Use in each nostril as directed benzonatate 2022-0 Yes [id number] 100mg Take 1 [facility] (TESSALON 3-30 capsule by ity of PERLES) 100 00:00: mouth [place] mg capsule 00 every 8 Medica l (eight) Branch hours as needed for Cough. azelastine 2022-0 Yes [id number] 1{spray Use 1 [facility] 137 mcg 3-30 } [place] in ity of (0.1 %) 00:00: each [place] nasal spray 00 nostril in [place] dical the Branch morning and 1 [place] in the evening. Use in each nostril as directed benzonatate 2022-0 Yes [id number] 100mg Take 1 [facility] (TESSALON 3-30 capsule by ity of PERLES) 100 00:00: mouth [place] mg capsule 00 every 8 Medica l (eight) Branch hours as needed for Cough. azelastine 2022-0 Yes [id number] 1{spray Use 1 [facility] 137 mcg 3-30 } [place] in ity of (0.1 %) 00:00: each [place] nasal spray [place] the [place] morning and 1 [place] in the evening. Use in each nostril as directed benzonatate 2022-0 Yes [id number] 100mg Take 1 [facility] (TESSALON 3-30 capsule by ity of PERLHar[employer] Trends) 100 00:00: mouth [place] mg capsule 00 every 8 Medica l (eight) Branch hours as needed for Cough. azelastine 2022-0 Yes [id number] 1{spray Use 1 [facility] 137 mcg 3-30 } [place] in ity of (0.1 %) 00:00: each [place] nasal spray [place] nost[place] the [place] morning and 1 [place] in the evening. Use in each nostril as directed benzonatate 2022-0 Yes [id number] 100mg Take 1 [facility] (TESSALON 3-30 capsule by ity of PERLES) 100 00:00: mouth [place] mg capsule 00 every 8 Medica l (eight) Branch hours as needed for Cough. azelastine 2022-0 Yes [id number] 1{spray Use 1 [facility] 137 mcg 3-30 } [place] in ity of (0.1 %) 00:00: each [place] nasal spray 00 nostril in [place] dical the Branch morning and 1 [place] in the evening. Use in each nostril as directed benzonatate 2022-0 Yes [id number] 100mg Take 1 [facility] (TESSALON 3-30 capsule by ity of PERLES) 100 00:00: mouth [place] mg capsule 00 every 8 Medica l (eight) Branch hours as needed for Cough. azelastine 2022-0 Yes [id number] 1{spray Use 1 [facility] 137 mcg 3-30 } [place] in ity of (0.1 %) 00:00: each [place] nasal spray 00 nostril in [place] dical the Branch morning and 1 [place] in the evening. Use in each nostril as directed benzonatate 2022-0 Yes [id number] 100mg Take 1 [facility] (TESSALON 3-30 capsule by ity of PERLES) 100 00:00: mouth [place] mg capsule 00 every 8 Medica l (eight) Branch hours as needed for Cough. azelastine 2022-0 Yes [id number] 1{spray Use 1 [facility] 137 mcg 3-30 } [place] in ity of (0.1 %) 00:00: each [place] nasal spray [place] nost[place] the [place] morning and 1 [place] in the evening. Use in each nostril as directed benzonatate 2022-0 Yes [id number] 100mg Take 1 [facility] (TESSALON 3-30 capsule by ity of [employer]LHar[employer]rends) 100 00:00: mouth [place] mg capsule 00 every 8 Medica l (eight) Branch hours as needed for Cough. azelastine 2022-0 Yes [id number] 1{spray Use 1 [facility] 137 mcg 3-30 } [place] in ity of (0.1 %) 00:00: each [place] nasal spray [place] nostril in [place] the Branch morning and 1 [place] in the evening. Use in each nostril as directed benzonatate 2022-0 Yes [id number] 100mg Take 1 [facility] (TESSALON 3-30 capsule by ity of PERLES) 100 00:00: mouth [place] mg capsule 00 every 8 Medica l (eight) Branch hours as needed for Cough. azelastine 2022-0 Yes [id number] 1{spray Use 1 [facility] 137 mcg 3-30 } [place] in ity of (0.1 %) 00:00: each [place] nasal spray 00 nostril in Me dical the Branch morning and 1 [place] in the evening. Use in each nostril as directed benzonatate 2022-0 Yes [id number] 100mg Take 1 [facility] (TESSALON 3-30 capsule by ity of PERLES) 100 00:00: mouth [place] mg capsule 00 every 8 Medica l (eight) Branch hours as needed for Cough. azelastine 2022-0 Yes [id number] 1{spray Use 1 [facility] 137 mcg 3-30 } [place] in ity of (0.1 %) 00:00: each [place] nasal spray 00 nostril in [place] dical the Branch morning and 1 [place] in the evening. Use in each nostril as directed benzonatate 2022-0 Yes [id number] 100mg Take 1 [facility] (TESSALON 3-30 capsule by ity of PERLES) 100 00:00: mouth [place] mg capsule 00 every 8 Medica l (eight) Branch hours as needed for Cough. azelastine 2022-0 Yes [id number] 1{spray Use 1 [facility] 137 mcg 3-30 } [place] in ity of (0.1 %) 00:00: each [place] nasal spray [place] nostril in [place] the [place] morning and 1 [place] in the evening. Use in each nostril as directed benzonatate 2022-0 Yes [id number] 100mg Take 1 [facility] (TESSALON 3-30 capsule by ity of PERLHar[employer] Trends) 100 00:00: mouth [place] mg capsule 00 every 8 Medica l (eight) Branch hours as needed for Cough. azelastine 2022-0 Yes [id number] 1{spray Use 1 [facility] 137 mcg 3-30 } [place] in ity of (0.1 %) 00:00: each [place] nasal spray [place] nostril in [place] the [facility] morning and 1 [place] in the evening. Use in each nostril as directed benzonatate 2022-0 Yes [id number] 100mg Take 1 [facility] (TESSALON 3-30 capsule by ity of PERLES) 100 00:00: mouth [place] mg capsule 00 every 8 Medica l (eight) Branch hours as needed for Cough. azelastine 2022-0 Yes [id number] 1{spray Use 1 [facility] 137 mcg 3-30 } [place] in ity of (0.1 %) 00:00: each [place] nasal spray 00 nostril in [place] dical the Branch morning and 1 [place] in the evening. Use in each nostril as directed benzonatate 2022-0 Yes [id number] 100mg Take 1 [facility] (TESSALON 3-30 capsule by ity of PERLES) 100 00:00: mouth [place] mg capsule 00 every 8 Medica l (eight) Branch hours as needed for Cough. azelastine 2022-0 Yes [id number] 1{spray Use 1 [facility] 137 mcg 3-30 } [place] in ity of (0.1 %) 00:00: each [place] nasal spray 00 nostril in [place] [facility] the Branch morning and 1 [place] in the evening. Use in each nostril as directed benzonatate 2022-0 Yes [id number] 100mg Take 1 [facility] (TESSALON 3-30 capsule by ity of PERLES) 100 00:00: mouth [place] mg capsule 00 every 8 Medica l (eight) Branch hours as needed for Cough. azelastine 2022-0 Yes [id number] 1{spray Use 1 [facility] 137 mcg 3-30 } [place] in ity of (0.1 %) 00:00: each [place] nasal spray 00 nostril in [place] the [facility] morning and 1 [place] in the evening. Use in each nostril as directed benzonatate 2022-0 Yes [id number] 100mg Take 1 [facility] (TESSALON 3-30 capsule by ity of PERLHar[employer] Trends) 100 00:00: mouth [place] mg capsule 00 every 8 Medica l (eight) Branch hours as needed for Cough. azelastine 2022-0 Yes [id number] 1{spray Use 1 [facility] 137 mcg 3-30 } [place] in ity of (0.1 %) 00:00: each [place] nasal spray 00 nostril in [place] the [facility] morning and 1 [place] in the evening. Use in each nostril as directed benzonatate 2022-0 Yes [id number] 100mg Take 1 [facility] (TESSALON 3-30 capsule by ity of PERLES) 100 00:00: mouth [place] mg capsule 00 every 8 Medica l (eight) Branch hours as needed for Cough. azelastine 2022-0 Yes [id number] 1{spray Use 1 [facility] 137 mcg 3-30 } [place] in ity of (0.1 %) 00:00: each [place] nasal spray 00 nostril in [facility] dical the Branch morning and 1 [place] in the evening. Use in each nostril as directed benzonatate 2022-0 Yes [id number] 100mg Take 1 [facility] (TESSALON 3-30 capsule by ity of PERLES) 100 00:00: mouth [place] mg capsule 00 every 8 Medica l (eight) Branch hours as needed for Cough. azelastine 2022-0 Yes [id number] 1{spray Use 1 [facility] 137 mcg 3-30 } [place] in ity of (0.1 %) 00:00: each [place] nasal spray 00 nostril in [place] dical the Branch morning and 1 [place] in the evening. Use in each nostril as directed benzonatate 2022-0 Yes [id number] 100mg Take 1 [facility] (TESSALON 3-30 capsule by ity of PERLES) 100 00:00: mouth [place] mg capsule 00 every 8 Medica l (eight) Branch hours as needed for Cough. azelastine 2022-0 Yes [id number] 1{spray Use 1 [facility] 137 mcg 3-30 } [place] in ity of (0.1 %) 00:00: each [place] nasal spray 00 nostril in [place] the Branch morning and 1 [place] in the evening. Use in each nostril as directed benzonatate 2022-0 Yes [id number] 100mg Take 1 [facility] (TESSALON 3-30 capsule by ity of PERLHar[employer] Trends) 100 00:00: mouth [place] mg capsule 00 every 8 Medica l (eight) Branch hours as needed for Cough. azelastine 2022-0 Yes [id number] 1{spray Use 1 [facility] 137 mcg 3-30 } [place] in ity of (0.1 %) 00:00: each [place] nasal spray 00 nostril in [place] the [facility] morning and 1 [place] in the evening. Use in each nostril as directed benzonatate 2022-0 Yes [id number] 100mg Take 1 [facility] (TESSALON 3-30 capsule by ity of PERLES) 100 00:00: mouth [place] mg capsule 00 every 8 Medica l (eight) Branch hours as needed for Cough. azelastine 2022-0 Yes [id number] 1{spray Use 1 [facility] 137 mcg 3-30 } [place] in ity of (0.1 %) 00:00: each [place] nasal spray 00 nostril in [place] dical the Branch morning and 1 [place] in the evening. Use in each nostril as directed benzonatate 2022-0 Yes [id number] 100mg Take 1 [facility] (TESSALON 3-30 capsule by ity of PERLES) 100 00:00: mouth [place] mg capsule 00 every 8 Medica l (eight) Branch hours as needed for Cough. azelastine 2022-0 Yes [id number] 1{spray Use 1 [facility] 137 mcg 3-30 } [place] in ity of (0.1 %) 00:00: each [place] nasal spray 00 nostril in [facility] dical the Branch morning and 1 [place] in the evening. Use in each nostril as directed benzonatate 2022-0 Yes [id number] 100mg Take 1 [facility] (TESSALON 3-30 capsule by ity of PERLES) 100 00:00: mouth [place] mg capsule 00 every 8 Medica l (eight) Branch hours as needed for Cough. azelastine 2022-0 Yes [id number] 1{spray Use 1 [facility] 137 mcg 3-30 } [place] in ity of (0.1 %) 00:00: each [place] nasal spray 00 nostril in [place] the Branch morning and 1 [place] in the evening. Use in each nostril as directed benzonatate 2022-0 Yes [id number] 100mg Take 1 [facility] (TESSALON 3-30 capsule by ity of [employer]LHar[employer]) 100 00:00: mouth [place] mg capsule 00 every 8 Medica l (eight) Branch hours as needed for Cough. azelastine 2022-0 Yes [id number] 1{spray Use 1 [facility] 137 mcg 3-30 } [place] in ity of (0.1 %) 00:00: each [place] nasal spray 00 nostril in [place] the Branch morning and 1 [place] in the evening. Use in each nostril as directed benzonatate 2022-0 Yes [id number] 100mg Take 1 [facility] (TESSALON 3-30 capsule by ity of PERLES) 100 00:00: mouth [place] mg capsule 00 every 8 Medica l (eight) Branch hours as needed for Cough. azelastine 2022-0 Yes [id number] 1{spray Use 1 [facility] 137 mcg 3-30 } [place] in ity of (0.1 %) 00:00: each [place] nasal spray 00 nostril in [place] [facility] the Branch morning and 1 [place] in the evening. Use in each nostril as directed benzonatate 2022-0 Yes [id number] 100mg Take 1 [facility] (TESSALON 3-30 capsule by ity of PERLES) 100 00:00: mouth [place] mg capsule 00 every 8 Medica l (eight) Branch hours as needed for Cough. ferrous 3-0 Yes [id number] 324mg Take 1 [facility] vers gluconate 3-07 tablet by ity o f 324 mg (38 00:00: mouth [place] mg iron) 00 daily with Medic al tablet breakfast. Branch ascorbic 2022-0 Yes [id number] 500mg Take 500 [facility] acid, 3-07 mg by ity of vitamin C, 00:00: mouth in [place] 500 mg [place] 00 the Medical morning. Branch ferrous 2022-0 Yes [id number] 324mg Take 1 [facility] vers gluconate 3-07 tablet by ity o f 324 mg (38 00:00: mouth [place] mg iron) 00 daily with Medic al tablet breakfast. Branch ascorbic 2022-0 Yes [id number] 500mg Take 500 [facility] acid, 3-07 mg by ity of vitamin C, 00:00: mouth in [place] 500 mg Cap 00 the Medical morning. Branch ferrous 2022-0 Yes [id number] 324mg Take 1 [facility] vers gluconate 3-07 tablet by ity o f 324 mg (38 00:00: mouth [place] mg iron) 00 daily with Medic al tablet breakfast. Branch ascorbic 2022-0 Yes [id number] 500mg Take 500 [facility] acid, 3-07 mg by ity of vitamin C, 00:00: mouth in [place] 500 mg Cap 00 the Medical morning. Branch ferrous 2022-0 Yes [id number] 324mg Take 1 [facility] vers gluconate 3-07 tablet by ity o f 324 mg (38 00:00: mouth [place] mg iron) 00 daily with Medic al tablet breakfast. Branch ascorbic 3-0 Yes [id number] 500mg Take 500 [facility] acid, 3-07 mg by ity of vitamin C, 00:00: mouth in [place] 500 mg Cap 00 the Medical morning. Branch ferrous 3-0 Yes [id number] 324mg Take 1 [facility] vers gluconate 3-07 tablet by ity o f 324 mg (38 00:00: mouth [place] mg iron) 00 daily with Medic al tablet breakfast. Branch ascorbic 3-0 Yes [id number] 500mg Take 500 [facility] acid, 3-07 mg by ity of vitamin C, 00:00: mouth in [place] 500 mg Cap 00 the Medical morning. Branch ferrous 3-0 Yes [id number] 324mg Take 1 [facility] vers gluconate 3-07 tablet by ity o f 324 mg (38 00:00: mouth [place] mg iron) 00 daily with Medic al tablet breakfast. Branch ascorbic 3-0 Yes [id number] 500mg Take 500 [facility] acid, 3-07 mg by ity of vitamin C, 00:00: mouth in [place] 500 mg Cap 00 the Medical morning. Branch ferrous 3-0 Yes [id number] 324mg Take 1 [facility] vers gluconate 3-07 tablet by ity o f 324 mg (38 00:00: mouth [place] mg iron) 00 daily with Medic al tablet breakfast. Branch ascorbic 2022-0 Yes [id number] 500mg Take 500 [facility] acid, 3-07 mg by ity of vitamin C, 00:00: mouth in [place] 500 mg Cap 00 the Medical morning. Branch ferrous 2022-0 Yes [id number] 324mg Take 1 [facility] vers gluconate 3-07 tablet by ity o f 324 mg (38 00:00: mouth [place] mg iron) 00 daily with Medic al tablet breakfast. Branch ascorbic 2022-0 Yes [id number] 500mg Take 500 [facility] acid, 3-07 mg by ity of vitamin C, 00:00: mouth in [place] 500 mg Cap 00 the Medical morning. Branch ferrous 3-0 Yes [id number] 324mg Take 1 [facility] vers gluconate 3-07 tablet by ity o f 324 mg (38 00:00: mouth [place] mg iron) 00 daily with Medic al tablet breakfast. Branch ascorbic 3-0 Yes [id number] 500mg Take 500 [facility] acid, 3-07 mg by ity of vitamin C, 00:00: mouth in [place] 500 mg Cap 00 the Medical morning. Branch ferrous 3-0 Yes [id number] 324mg Take 1 [facility] vers gluconate 3-07 tablet by ity o f 324 mg (38 00:00: mouth [place] mg iron) 00 daily with Medic al tablet breakfast. Branch ascorbic 3-0 Yes [id number] 500mg Take 500 [facility] acid, 3-07 mg by ity of vitamin C, 00:00: mouth in [place] 500 mg Cap 00 the Medical morning. Branch ferrous 3-0 Yes [id number] 324mg Take 1 [facility] vers gluconate 3-07 tablet by ity o f 324 mg (38 00:00: mouth [place] mg iron) 00 daily with Medic al tablet breakfast. Branch ascorbic 3-0 Yes [id number] 500mg Take 500 [facility] acid, 3-07 mg by ity of vitamin C, 00:00: mouth in [place] 500 mg Cap 00 the Medical morning. Branch ferrous 3-0 Yes [id number] 324mg Take 1 [facility] vers gluconate 3-07 tablet by ity o f 324 mg (38 00:00: mouth [place] mg iron) 00 daily with Medic al tablet breakfast. Branch ascorbic 3-0 Yes [id number] 500mg Take 500 [facility] acid, 3-07 mg by ity of vitamin C, 00:00: mouth in [place] 500 mg Cap 00 the Medical morning. Branch ferrous 3-0 Yes [id number] 324mg Take 1 [facility] vers gluconate 3-07 tablet by ity o f 324 mg (38 00:00: mouth [place] mg iron) 00 daily with Medic al tablet breakfast. Branch ascorbic 2022-0 Yes [id number] 500mg Take 500 [facility] acid, 3-07 mg by ity of vitamin C, 00:00: mouth in [place] 500 mg Cap 00 the Medical morning. Branch ferrous 3-0 Yes [id number] 324mg Take 1 [facility] vers gluconate 3-07 tablet by ity o f 324 mg (38 00:00: mouth [place] mg iron) 00 daily with Medic al tablet breakfast. Branch ascorbic 3-0 Yes [id number] 500mg Take 500 [facility] acid, 3-07 mg by ity of vitamin C, 00:00: mouth in [place] 500 mg Cap 00 the Medical morning. Branch ferrous 3-0 Yes [id number] 324mg Take 1 [facility] vers gluconate 3-07 tablet by ity o f 324 mg (38 00:00: mouth [place] mg iron) 00 daily with Medic al tablet breakfast. Branch ascorbic 3-0 Yes [id number] 500mg Take 500 [facility] acid, 3-07 mg by ity of vitamin C, 00:00: mouth in [place] 500 mg Cap 00 the Medical morning. Branch ferrous 3-0 Yes [id number] 324mg Take 1 [facility] vers gluconate 3-07 tablet by ity o f 324 mg (38 00:00: mouth [place] mg iron) 00 daily with Medic al tablet breakfast. Branch ascorbic 3-0 Yes [id number] 500mg Take 500 [facility] acid, 3-07 mg by ity of vitamin C, 00:00: mouth in [place] 500 mg Cap 00 the Medical morning. Branch ferrous 3-0 Yes [id number] 324mg Take 1 [facility] vers gluconate 3-07 tablet by ity o f 324 mg (38 00:00: mouth [place] mg iron) 00 daily with Medic al tablet breakfast. Branch ascorbic 3-0 Yes [id number] 500mg Take 500 [facility] acid, 3-07 mg by ity of vitamin C, 00:00: mouth in [place] 500 mg Cap 00 the Medical morning. Branch ferrous 3-0 Yes [id number] 324mg Take 1 [facility] vers gluconate 3-07 tablet by ity o f 324 mg (38 00:00: mouth [place] mg iron) 00 daily with Medic al tablet breakfast. Branch ascorbic 3-0 Yes [id number] 500mg Take 500 [facility] acid, 3-07 mg by ity of vitamin C, 00:00: mouth in [place] 500 mg Cap 00 the Medical morning. Branch ferrous 2022-0 Yes [id number] 324mg Take 1 [facility] vers gluconate 3-07 tablet by ity o f 324 mg (38 00:00: mouth [place] mg iron) 00 daily with Medic al tablet breakfast. Branch ascorbic 3-0 Yes [id number] 500mg Take 500 [facility] acid, 3-07 mg by ity of vitamin C, 00:00: mouth in [place] 500 mg Cap 00 the Medical morning. Branch ferrous 3-0 Yes [id number] 324mg Take 1 [facility] vers gluconate 3-07 tablet by ity o f 324 mg (38 00:00: mouth [place] mg iron) 00 daily with Medic al tablet breakfast. Branch ascorbic 3-0 Yes [id number] 500mg Take 500 [facility] acid, 3-07 mg by ity of vitamin C, 00:00: mouth in [place] 500 mg Cap 00 the Medical morning. Branch ferrous 3-0 Yes [id number] 324mg Take 1 [facility] vers gluconate 3-07 tablet by ity o f 324 mg (38 00:00: mouth [place] mg iron) 00 daily with Medic al tablet breakfast. Branch ascorbic 2023-0 Yes [id number] 500mg Take 500 [facility] acid, 3-07 mg by ity of vitamin C, 00:00: mouth in [place] as 500 mg Cap 00 the Medical morning. Branch ferrous 2023-0 Yes [id number] 324mg Take 1 [facility] vers gluconate 3-07 tablet by ity o f 324 mg (38 00:00: mouth [place] mg iron) 00 daily with Medic al tablet breakfast. Branch ascorbic 3-0 Yes [id number] 500mg Take 500 [facility] acid, 3-07 mg by ity of vitamin C, 00:00: mouth in [place] 500 mg Cap 00 the Medical morning. Branch ferrous 3-0 Yes [id number] 324mg Take 1 [facility] vers gluconate 3-07 tablet by ity o f 324 mg (38 00:00: mouth [place] mg iron) 00 daily with Medic al tablet breakfast. Branch ascorbic 2022-0 Yes [id number] 500mg Take 500 [facility] acid, 3-07 mg by ity of vitamin C, 00:00: mouth in [place] 500 mg Cap 00 the Medical morning. Branch ferrous 3-0 Yes [id number] 324mg Take 1 [facility] vers gluconate 3-07 tablet by ity o f 324 mg (38 00:00: mouth [place] mg iron) 00 daily with Medic al tablet breakfast. Branch ascorbic 2022-0 Yes [id number] 500mg Take 500 [facility] acid, 3-07 mg by ity of vitamin C, 00:00: mouth in [place] 500 mg Cap 00 the Medical morning. Branch ferrous 2022-0 Yes [id number] 324mg Take 1 [facility] vers gluconate 3-07 tablet by ity o f 324 mg (38 00:00: mouth [place] mg iron) 00 daily with Medic al tablet breakfast. Branch ascorbic 3-0 Yes [id number] 500mg Take 500 [facility] acid, 3-07 mg by ity of vitamin C, 00:00: mouth in [place] 500 mg Cap 00 the Medical morning. Branch ferrous 3-0 Yes [id number] 324mg Take 1 [facility] vers gluconate 3-07 tablet by ity o f 324 mg (38 00:00: mouth [place] mg iron) 00 daily with Medic al tablet breakfast. Branch ascorbic 3-0 Yes [id number] 500mg Take 500 [facility] acid, 3-07 mg by ity of vitamin C, 00:00: mouth in [place] 500 mg Cap 00 the Medical morning. Branch ferrous 3-0 Yes [id number] 324mg Take 1 [facility] vers gluconate 3-07 tablet by ity o f 324 mg (38 00:00: mouth [place] mg iron) 00 daily with Medic al tablet breakfast. Branch ascorbic 3-0 Yes [id number] 500mg Take 500 [facility] acid, 3-07 mg by ity of vitamin C, 00:00: mouth in [place] 500 mg Cap 00 the Medical morning. Branch ferrous 3-0 Yes [id number] 324mg Take 1 [facility] vers gluconate 3-07 tablet by ity o f 324 mg (38 00:00: mouth [place] mg iron) 00 daily with Medic al tablet breakfast. Branch ascorbic 3-0 Yes [id number] 500mg Take 500 [facility] acid, 3-07 mg by ity of vitamin C, 00:00: mouth in [place] 500 mg Cap 00 the Medical morning. Branch ferrous 3-0 Yes [id number] 324mg Take 1 [facility] vers gluconate 3-07 tablet by ity o f 324 mg (38 00:00: mouth [place] mg iron) 00 daily with Medic al tablet breakfast. Branch ascorbic 2022-0 Yes [id number] 500mg Take 500 [facility] acid, 3-07 mg by ity of vitamin C, 00:00: mouth in [place] 500 mg Cap 00 the Medical morning. Branch ferrous 3-0 Yes [id number] 324mg Take 1 [facility] vers gluconate 3-07 tablet by ity o f 324 mg (38 00:00: mouth [place] mg iron) 00 daily with Medic al tablet breakfast. Branch ascorbic 3-0 Yes [id number] 500mg Take 500 [facility] acid, 3-07 mg by ity of vitamin C, 00:00: mouth in [place] 500 mg Cap 00 the Medical morning. Branch ferrous 3-0 Yes [id number] 324mg Take 1 [facility] vers gluconate 3-07 tablet by ity o f 324 mg (38 00:00: mouth [place] mg iron) 00 daily with Medic al tablet breakfast. Branch ascorbic 3-0 Yes [id number] 500mg Take 500 [facility] acid, 3-07 mg by ity of vitamin C, 00:00: mouth in [place] 500 mg Cap 00 the Medical morning. Branch ferrous 3-0 Yes [id number] 324mg Take 1 [facility] vers gluconate 3-07 tablet by ity o f 324 mg (38 00:00: mouth [place] mg iron) 00 daily with Medic al tablet breakfast. Branch ascorbic 3-0 Yes [id number] 500mg Take 500 [facility] acid, 3-07 mg by ity of vitamin C, 00:00: mouth in [place] 500 mg Cap 00 the Medical morning. Branch ferrous 3-0 Yes [id number] 324mg Take 1 [facility] vers gluconate 3-07 tablet by ity o f 324 mg (38 00:00: mouth [place] mg iron) 00 daily with Medic al tablet breakfast. Branch ascorbic 2022-0 Yes [id number] 500mg Take 500 [facility] acid, 3-07 mg by ity of vitamin C, 00:00: mouth in [place] 500 mg Cap 00 the Medical morning. Branch ferrous 3-0 Yes [id number] 324mg Take 1 [facility] vers gluconate 3-07 tablet by ity o f 324 mg (38 00:00: mouth [place] mg iron) 00 daily with Medic al tablet breakfast. Branch ascorbic 2022-0 Yes [id number] 500mg Take 500 [facility] acid, 3-07 mg by ity of vitamin C, 00:00: mouth in [place] 500 mg Cap 00 the Medical morning. Branch ferrous 3-0 Yes [id number] 324mg Take 1 [facility] vers gluconate 3-07 tablet by ity o f 324 mg (38 00:00: mouth [place] mg iron) 00 daily with Medic al tablet breakfast. Branch ascorbic 2022-0 Yes [id number] 500mg Take 500 [facility] acid, 3-07 mg by ity of vitamin C, 00:00: mouth in [place] 500 mg Cap 00 the Medical morning. Branch ascorbic 2022-0 Yes [id number] 500mg Take 500 [facility] acid, 3-07 mg by ity of vitamin C, 00:00: mouth in [place] 500 mg Cap 00 the Medical morning. Branch ascorbic 2022-0 Yes [id number] 500mg Take 500 [facility] acid, 3-07 mg by ity of vitamin C, 00:00: mouth in [place] 500 mg Cap 00 the Medical morning. Branch ascorbic 3-0 Yes [id number] 500mg Take 500 [facility] acid, 3-07 mg by ity of vitamin C, 00:00: mouth in [place] 500 mg Cap 00 the Medical morning. Branch ascorbic 3-0 Yes [id number] 500mg Take 500 [facility] acid, 3-07 mg by ity of vitamin C, 00:00: mouth in [place] 500 mg Cap 00 the Medical morning. Branch ascorbic 2023-0 Yes [id number] 500mg Take 500 [facility] acid, 3-07 mg by ity of vitamin C, 00:00: mouth in [place] 500 mg Cap 00 the Medical morning. Branch ascorbic Yes [id number] 500mg Take 500 [facility] acid, 3-07 mg by ity of vitamin C, 00:00: mouth in [place] 500 mg Cap 00 the Medical morning. Branch ascorbic Yes [id number] 500mg Take 500 [facility] acid, 3-07 mg by ity of vitamin C, 00:00: mouth in [place] 500 mg Cap 00 the Medical morning. Branch ascorbic Yes [id number] 500mg Take 500 [facility] acid, 3-07 mg by ity of vitamin C, 00:00: mouth in [place] 500 mg Cap 00 the Medical morning. Branch ferrous 2022- No [id number] 324mg Take 1 [facility] gluconate 06-18 tablet by ity of 324 mg (38 00:00: 00:00 mouth [place] mg iron) 00 :00 daily with Medic al tablet breakfast. Branch ferrous No [id number] 324mg Take 1 [facility] [place] gluconate 06-18 tablet by ity of 324 mg (38 00:00: 00:00 mouth [place] mg iron) 00 :00 daily with Medic al tablet breakfast. Branch aspirin 81 2022- No [id number] 81mg Take 1 [facility] mg chewable 06-12 tablet by it y of tablet 00:00: 04:59 mouth [place] 00 :00 daily with Medical breakfast Branch for 30 days. polyethylen 2022- No [id number] 17g Take 1 [facility] e glycol 06-12 Packet by ity o f 3350 17 00:00: 04:59 mouth in [place] gram powder 00 :00 the Medical morning Branch for 30 days. sennosides- 2022- No [id number] 1{tbl} Take 1 [facility] docusate 06-12 tablet by ity o f sodium 00:00: 04:59 mouth in [place] 8.6-50 mg 00 :00 the Medical per tablet morning Branch for 30 days. KCL 20 mEq 2022- No [id number] 20meq Take 1 [facility] tablet 06-12 tablet by ity of 00:00: 04:59 mouth in [place] 00 :00 the Medical morning Branch for 30 days. aspirin 81 2022-0 2022- No [id number] 81mg Take 1 [facility] mg chewable -07-13 tablet by it y of tablet 00:00: 04:59 mouth [place] 00 :00 daily with Medical breakfast Branch for 30 days. polyethylen 0 2022- No [id number] 17g Take 1 [facility] e glycol 06-12 Packet by ity o f 3350 17 00:00: 04:59 mouth in [place] gram powder 00 :00 the Medical morning Branch for 30 days. sennosides- 2022-2022- No [id number] 1{tbl} Take 1 [facility] docusate 06-12 tablet by ity o f sodium 00:00: 04:59 mouth in [place] 8.6-50 mg 00 :00 the Medical per tablet morning Branch for 30 days. KCL 20 mEq 2022- No [id number] 20meq Take 1 [facility] tablet 06-12 tablet by ity of 00:00: 04:59 mouth in [place] 00 :00 the Medical morning Branch for 30 days. aspirin 81 2022-2022- No [id number] 81mg Take 1 [facility] mg chewable 06-12 tablet by it y of tablet 00:00: 04:59 mouth [place] 00 :00 daily with Medical breakfast Branch for 30 days. polyethylen 2022- No [id number] 17g Take 1 [facility] e glycol 06-12 Packet by ity o f 3350 17 00:00: 04:59 mouth in [place] gram powder 00 :00 the Medical morning Branch for 30 days. sennosides- 0 2022- No [id number] 1{tbl} Take 1 [facility] docusate -07-13 tablet by ity o f sodium 00:00: 04:59 mouth in [place] 8.6-50 mg 00 :00 the Medical per tablet morning Branch for 30 days. KCL 20 mEq 0 2022- No [id number] 20meq Take 1 [facility] tablet -07-13 tablet by ity of 00:00: 04:59 mouth in [place] 00 :00 the Medical morning Branch for 30 days. aspirin 81 2022-0 2022- No [id number] 81mg Take 1 [facility] mg chewable 3-04 17- tablet by it y of tablet 00:00: 04:59 mouth [place] 00 :00 daily with Medical breakfast Branch for 30 days. polyethylen 2022-0 2022- No [id number] 17g Take 1 [facility] e glycol -07-13 Packet by ity o f 3350 17 00:00: 04:59 mouth in [place] gram powder 00 :00 the Medical morning Branch for 30 days. sennosides- 2022-0 2022- No [id number] 1{tbl} Take 1 [facility] docusate 3-04 17- tablet by ity o f sodium 00:00: 04:59 mouth in [place] 8.6-50 mg 00 :00 the Medical per tablet morning Branch for 30 days. KCL 20 mEq 2022-2022- No [id number] 20meq Take 1 [facility] tablet -07-13 tablet by ity of 00:00: 04:59 mouth in [place] 00 :00 the Medical morning Branch for 30 days. aspirin 81 2022-0 2022- No [id number] 81mg Take 1 [facility] mg chewable -07-13 tablet by it y of tablet 00:00: 04:59 mouth [place] 00 :00 daily with Medical breakfast Branch for 30 days. polyethylen 2022-2022- No [id number] 17g Take 1 [facility] e glycol 06-12 Packet by ity o f 3350 17 00:00: 04:59 mouth in [place] gram powder 00 :00 the Medical morning Branch for 30 days. sennosides- 2022-0 2022- No [id number] 1{tbl} Take 1 [facility] docusate 3-04 17- tablet by ity o f sodium 00:00: 04:59 mouth in [place] 8.6-50 mg 00 :00 the Medical per tablet morning Branch for 30 days. KCL 20 mEq 2022-0 2022- No [id number] 20meq Take 1 [facility] tablet 3-04 17- tablet by ity of 00:00: 04:59 mouth in [place] 00 :00 the Medical morning Branch for 30 days. aspirin 81 2022- No [id number] 81mg Take 1 [facility] mg chewable -04 17- tablet by it y of tablet 00:00: 04:59 mouth [place] 00 :00 daily with Medical breakfast Branch for 30 days. polyethylen No [id number] 17g Take 1 [facility] e glycol 06-12 Packet by ity o f 3350 17 00:00: 04:59 mouth in [place] gram powder 00 :00 the Medical morning Branch for 30 days. sennosides- 2022- No [id number] 1{tbl} Take 1 [facility] docusate -04 17- tablet by ity o f sodium 00:00: 04:59 mouth in [place] 8.6-50 mg 00 :00 the Medical per tablet morning Branch for 30 days. KCL 20 mEq No [id number] 20meq Take 1 [facility] tablet 06-12 tablet by ity of 00:00: 04:59 mouth in [place] 00 :00 the Medical morning Branch for 30 days. aspirin 81 2022- No [id number] 81mg Take 1 [facility] mg chewable 06-12 tablet by it y of tablet 00:00: 04:59 mouth [place] 00 :00 daily with Medical breakfast Branch for 30 days. polyethylen No [id number] 17g Take 1 [facility] e glycol 06-12 Packet by ity o f 3350 17 00:00: 04:59 mouth in [place] gram powder 00 :00 the Medical morning Branch for 30 days. sennosides- 2022- No [id number] 1{tbl} Take 1 [facility] docusate 06-12 tablet by ity o f sodium 00:00: 04:59 mouth in [place] 8.6-50 mg 00 :00 the Medical per tablet morning Branch for 30 days. KCL 20 mEq 2022- No [id number] 20meq Take 1 [facility] tablet -07-13 tablet by ity of 00:00: 04:59 mouth in [place] 00 :00 the Medical morning Branch for 30 days. aspirin 81 2022- No [id number] 81mg Take 1 [facility] mg chewable -07-13 tablet by it y of tablet 00:00: 04:59 mouth [place] 00 :00 daily with Medical breakfast Branch for 30 days. polyethylen 2022- No [id number] 17g Take 1 [facility] e glycol -07-13 Packet by ity o f 3350 17 00:00: 04:59 mouth in [place] gram powder 00 :00 the Medical morning Branch for 30 days. sennosides- 0 2022- No [id number] 1{tbl} Take 1 [facility] docusate -07-13 tablet by ity o f sodium 00:00: 04:59 mouth in [place] 8.6-50 mg 00 :00 the Medical per tablet morning Branch for 30 days. KCL 20 mEq 2022-2022- No [id number] 20meq Take 1 [facility] tablet 06-12 tablet by ity of 00:00: 04:59 mouth in [place] 00 :00 the Medical morning Branch for 30 days. aspirin 81 2022-0 2022- No [id number] 81mg Take 1 [facility] mg chewable 06-12 tablet by it y of tablet 00:00: 04:59 mouth [place] 00 :00 daily with Medical breakfast Branch for 30 days. polyethylen 2022- No [id number] 17g Take 1 [facility] e glycol -07-13 Packet by ity o f 3350 17 00:00: 04:59 mouth in [place] gram powder 00 :00 the Medical morning Branch for 30 days. sennosides- 2022- No [id number] 1{tbl} Take 1 [facility] docusate -07-13 tablet by ity o f sodium 00:00: 04:59 mouth in [place] 8.6-50 mg 00 :00 the Medical per tablet morning Branch for 30 days. KCL 20 mEq 2022- No [id number] 20meq Take 1 [facility] tablet 06-12 tablet by ity of 00:00: 04:59 mouth in [place] 00 :00 the Medical morning Branch for 30 days. aspirin 81 2022-0 2022- No [id number] 81mg Take 1 [facility] mg chewable -07-13 tablet by it y of tablet 00:00: 04:59 mouth [place] 00 :00 daily with Medical breakfast Branch for 30 days. polyethylen 2022- No [id number] 17g Take 1 [facility] e glycol 3-07-13 Packet by ity o f 3350 17 00:00: 04:59 mouth in [place] gram powder 00 :00 the Medical morning Branch for 30 days. sennosides- 2022- No [id number] 1{tbl} Take 1 [facility] docusate 3-04 17- tablet by ity o f sodium 00:00: 04:59 mouth in [place] 8.6-50 mg 00 :00 the Medical per tablet morning Branch for 30 days. KCL 20 mEq 2022- No [id number] 20meq Take 1 [facility] tablet 3-04 17- tablet by ity of 00:00: 04:59 mouth in [place] 00 :00 the Medical morning Branch for 30 days. aspirin 81 2022-2022- No [id number] 81mg Take 1 [facility] mg chewable -07-13 tablet by it y of tablet 00:00: 04:59 mouth [place] 00 :00 daily with Medical breakfast Branch for 30 days. polyethylen 2022- No [id number] 17g Take 1 [facility] e glycol -07-13 Packet by ity o f 3350 17 00:00: 04:59 mouth in [place] gram powder 00 :00 the Medical morning Branch for 30 days. sennosides- 2022- No [id number] 1{tbl} Take 1 [facility] docusate 3-07-13 tablet by ity o f sodium 00:00: 04:59 mouth in [place] 8.6-50 mg 00 :00 the Medical per tablet morning Branch for 30 days. KCL 20 mEq 2022- No [id number] 20meq Take 1 [facility] tablet 3-04 17- tablet by ity of 00:00: 04:59 mouth in [place] 00 :00 the Medical morning Branch for 30 days. aspirin 81 2022- No [id number] 81mg Take 1 [facility] mg chewable 3-07-13 tablet by it y of tablet 00:00: 04:59 mouth [place] 00 :00 daily with Medical breakfast Branch for 30 days. polyethylen 2022- No [id number] 17g Take 1 [facility] e glycol -07-13 Packet by ity o f 3350 17 00:00: 04:59 mouth in [place] gram powder 00 :00 the Medical morning Branch for 30 days. sennosides- 2022- No [id number] 1{tbl} Take 1 [facility] docusate 3-04 17- tablet by ity o f sodium 00:00: 04:59 mouth in [place] 8.6-50 mg 00 :00 the Medical per tablet morning Branch for 30 days. KCL 20 mEq No [id number] 20meq Take 1 [facility] tablet -04 17- tablet by ity of 00:00: 04:59 mouth in [place] 00 :00 the Medical morning Branch for 30 days. aspirin 81 2022- No [id number] 81mg Take 1 [facility] mg chewable -07-13 tablet by it y of tablet 00:00: 04:59 mouth [place] 00 :00 daily with Medical breakfast Branch for 30 days. polyethylen 2022- No [id number] 17g Take 1 [facility] e glycol -07-13 Packet by ity o f 3350 17 00:00: 04:59 mouth in [place] gram powder 00 :00 the Medical morning Branch for 30 days. sennosides- 2022- No [id number] 1{tbl} Take 1 [facility] docusate -07-13 tablet by ity o f sodium 00:00: 04:59 mouth in [place] 8.6-50 mg 00 :00 the Medical per tablet morning Branch for 30 days. KCL 20 mEq 2022- No [id number] 20meq Take 1 [facility] tablet 06-12 tablet by ity of 00:00: 04:59 mouth in [place] 00 :00 the Medical morning Branch for 30 days. aspirin 81 2022- No [id number] 81mg Take 1 [facility] mg chewable 3-07-13 tablet by it y of tablet 00:00: 04:59 mouth [place] 00 :00 daily with Medical breakfast Branch for 30 days. polyethylen 2022- No [id number] 17g Take 1 [facility] e glycol -07-13 Packet by ity o f 3350 17 00:00: 04:59 mouth in [place] gram powder 00 :00 the Medical morning Branch for 30 days. sennosides- 2022-2022- No [id number] 1{tbl} Take 1 [facility] docusate 3-04 17- tablet by ity o f sodium 00:00: 04:59 mouth in [place] 8.6-50 mg 00 :00 the Medical per tablet morning Branch for 30 days. KCL 20 mEq 2022- No [id number] 20meq Take 1 [facility] tablet 3-04 17- tablet by ity of 00:00: 04:59 mouth in [place] 00 :00 the Medical morning Branch for 30 days. aspirin 81 2022-0 2022- No [id number] 81mg Take 1 [facility] mg chewable 3-04 17- tablet by it y of tablet 00:00: 04:59 mouth [place] 00 :00 daily with Medical breakfast Branch for 30 days. polyethylen 2022-2022- No [id number] 17g Take 1 [facility] e glycol -07-13 Packet by ity o f 3350 17 00:00: 04:59 mouth in [place] gram powder 00 :00 the Medical morning Branch for 30 days. sennosides- 2022- No [id number] 1{tbl} Take 1 [facility] docusate 3-04 17- tablet by ity o f sodium 00:00: 04:59 mouth in [place] 8.6-50 mg 00 :00 the Medical per tablet morning Branch for 30 days. KCL 20 mEq 2022- No [id number] 20meq Take 1 [facility] tablet -07-13 tablet by ity of 00:00: 04:59 mouth in [place] 00 :00 the Medical morning Branch for 30 days. aspirin 81 2022-0 2022- No [id number] 81mg Take 1 [facility] mg chewable 3-04 17- tablet by it y of tablet 00:00: 04:59 mouth [place] 00 :00 daily with Medical breakfast Branch for 30 days. polyethylen 2022-2022- No [id number] 17g Take 1 [facility] e glycol 3-04 17- Packet by ity o f 3350 17 00:00: 04:59 mouth in [place] gram powder 00 :00 the Medical morning Branch for 30 days. sennosides- 2022- No [id number] 1{tbl} Take 1 [facility] docusate 3-04 17- tablet by ity o f sodium 00:00: 04:59 mouth in [place] 8.6-50 mg 00 :00 the Medical per tablet morning Branch for 30 days. KCL 20 mEq 2022- No [id number] 20meq Take 1 [facility] tablet 06-12 tablet by ity of 00:00: 04:59 mouth in [place] 00 :00 the Medical morning Branch for 30 days. aspirin 81 2022- No [id number] 81mg Take 1 [facility] mg chewable -07-13 tablet by it y of tablet 00:00: 04:59 mouth [place] 00 :00 daily with Medical breakfast Branch for 30 days. polyethylen 2022- No [id number] 17g Take 1 [facility] e glycol -07-13 Packet by ity o f 3350 17 00:00: 04:59 mouth in [place] gram powder 00 :00 the Medical morning Branch for 30 days. sennosides- 2022- No [id number] 1{tbl} Take 1 [facility] docusate -07-13 tablet by ity o f sodium 00:00: 04:59 mouth in [place] 8.6-50 mg 00 :00 the Medical per tablet morning Branch for 30 days. KCL 20 mEq No [id number] 20meq Take 1 [facility] tablet 06-12 tablet by ity of 00:00: 04:59 mouth in [place] 00 :00 the Medical morning Branch for 30 days. aspirin 81 No [id number] 81mg Take 1 [facility] mg chewable -07-13 tablet by it y of tablet 00:00: 04:59 mouth [place] 00 :00 daily with Medical breakfast Branch for 30 days. polyethylen 2022- No [id number] 17g Take 1 [facility] e glycol -07-13 Packet by ity o f 3350 17 00:00: 04:59 mouth in [place] gram powder 00 :00 the Medical morning Branch for 30 days. sennosides- 2022- No [id number] 1{tbl} Take 1 [facility] docusate 3-04 17- tablet by ity o f sodium 00:00: 04:59 mouth in [place] 8.6-50 mg 00 :00 the Medical per tablet morning Branch for 30 days. KCL 20 mEq No [id number] 20meq Take 1 [facility] tablet -07-13 tablet by ity of 00:00: 04:59 mouth in [place] 00 :00 the Medical morning Branch for 30 days. aspirin 81 2022-0 2022- No [id number] 81mg Take 1 [facility] mg chewable -07-13 tablet by it y of tablet 00:00: 04:59 mouth [place] 00 :00 daily with Medical breakfast Branch for 30 days. polyethylen 2022-2022- No [id number] 17g Take 1 [facility] e glycol -07-13 Packet by ity o f 3350 17 00:00: 04:59 mouth in [place] gram powder 00 :00 the Medical morning Branch for 30 days. sennosides- 2022- No [id number] 1{tbl} Take 1 [facility] docusate 3-07-13 tablet by ity o f sodium 00:00: 04:59 mouth in [place] 8.6-50 mg 00 :00 the Medical per tablet morning Branch for 30 days. KCL 20 mEq 2022- No [id number] 20meq Take 1 [facility] tablet 06-12 tablet by ity of 00:00: 04:59 mouth in [place] 00 :00 the Medical morning Branch for 30 days. aspirin 81 2022-2022- No [id number] 81mg Take 1 [facility] mg chewable -07-13 tablet by it y of tablet 00:00: 04:59 mouth [place] 00 :00 daily with Medical breakfast Branch for 30 days. polyethylen 2022-2022- No [id number] 17g Take 1 [facility] e glycol -07-13 Packet by ity o f 3350 17 00:00: 04:59 mouth in [place] gram powder 00 :00 the Medical morning Branch for 30 days. sennosides- 2022- No [id number] 1{tbl} Take 1 [facility] docusate 3-04 17- tablet by ity o f sodium 00:00: 04:59 mouth in [place] 8.6-50 mg 00 :00 the Medical per tablet morning Branch for 30 days. KCL 20 mEq 2022-0 2022- No [id number] 20meq Take 1 [facility] tablet -04 17- tablet by ity of 00:00: 04:59 mouth in [place] 00 :00 the Medical morning Branch for 30 days. aspirin 81 3-0 2022- No [id number] 81mg Take 1 [facility] mg chewable 3-04 17- tablet by it y of tablet 00:00: 04:59 mouth [place] 00 :00 daily with Medical breakfast Branch for 30 days. polyethylen 2022-0 2022- No [id number] 17g Take 1 [facility] e glycol 3-07-13 Packet by ity o f 3350 17 00:00: 04:59 mouth in [place] gram powder 00 :00 the Medical morning Branch for 30 days. sennosides- 2022-0 2022- No [id number] 1{tbl} Take 1 [facility] docusate 3-04 17- tablet by ity o f sodium 00:00: 04:59 mouth in [place] 8.6-50 mg 00 :00 the Medical per tablet morning Branch for 30 days. KCL 20 mEq 2022-0 2022- No [id number] 20meq Take 1 [facility] tablet -07-13 tablet by ity of 00:00: 04:59 mouth in [place] 00 :00 the Medical morning Branch for 30 days. aspirin 81 2022-0 2022- No [id number] 81mg Take 1 [facility] mg chewable -07-13 tablet by it y of tablet 00:00: 04:59 mouth [place] 00 :00 daily with Medical breakfast Branch for 30 days. polyethylen 2022-0 2022- No [id number] 17g Take 1 [facility] e glycol 3-04 17- Packet by ity o f 3350 17 00:00: 04:59 mouth in [place] gram powder 00 :00 the Medical morning Branch for 30 days. sennosides- 0 2022- No [id number] 1{tbl} Take 1 [facility] docusate 3-04 17- tablet by ity o f sodium 00:00: 04:59 mouth in [place] 8.6-50 mg 00 :00 the Medical per tablet morning Branch for 30 days. KCL 20 mEq 2022- No [id number] 20meq Take 1 [facility] tablet 06-12 tablet by ity of 00:00: 04:59 mouth in [place] 00 :00 the [facility] for 30 days. atropine 1 Yes atropine 1 U nivers % 2-28 % eye ity of ophthalmic 17:00: drops [place] drops [address] [place] [address] Yes Pylera 140 [facility] ronidazole- 2-28 mg-125 ity of tetracyclin 17:00: mg-125 mg [place] (PYLERA) 45 capsule Medica l 140-125-125 Branch mg per capsule atropine 1 Yes atropine 1 U nivers % 2-28 % eye ity of ophthalmic 17:00: drops [place] drops [address] [place] [address] Yes Pylera 140 [facility] ronidazole- 2-28 mg-125 ity of tetracyclin 17:00: mg-125 mg [place] (PYLERA) 45 capsule Medica l 140-125-125 Branch mg per capsule atropine 1 Yes atropine 1 U nivers % 2-28 % eye ity of ophthalmic 17:00: drops [place] drops [address] [place] [address] Yes Pylera 140 [facility] ronidazole- 2-28 mg-125 ity of tetracyclin 17:00: mg-125 mg [place] (PYLERA) 45 capsule Medica l 140-125-125 Branch mg per capsule atropine 1 Yes atropine 1 U nivers % 2-28 % eye ity of ophthalmic 17:00: drops [place] drops [address] [place] [place] [address] Pylera 140 [facility] ronidazole- 2-28 mg-125 ity of tetracyclin 17:00: mg-125 mg [place] (PYLERA) 45 capsule Medica l 140-125-125 Branch mg per capsule atropine 1 Yes atropine 1 U nivers % 2-28 % eye ity of ophthalmic 17:00: drops [place] drops [address] [place] [place] [address] Pylera 140 [facility] ronidazole- 2-28 mg-125 ity of tetracyclin 17:00: mg-125 mg [place] (PYLERA) 45 capsule Medica l 140-125-125 Branch mg per capsule atropine 1 Yes atropine 1 U nivers % 2-28 % eye ity of ophthalmic 17:00: drops [place] drops 45 [facility] Pylera 140 [facility] ronidazole- 2-28 mg-125 ity of tetracyclin 17:00: mg-125 mg [place] (PYLERA) 45 capsule Medica l 140-125-125 Branch mg per capsule atropine 1 Yes atropine 1 U nivers % 2-28 % eye ity of ophthalmic 17:00: drops [place] drops 45 [facility] Yes Pylera 140 [facility] ronidazole- 2-28 mg-125 ity of tetracyclin 17:00: mg-125 mg [place] (PYLERA) 45 capsule Medica l 140-125-125 Branch mg per capsule atropine 1 Yes atropine 1 U nivers % 2-28 % eye ity of ophthalmic 17:00: drops [place] [facility] P[facility] 140 Univers ronidazole- 2-28 mg-125 ity of tetracyclin 17:00: mg-125 mg [place] (PYLERA) 45 capsule Medica l 140-125-125 Branch mg per capsule atropine 1 Yes atropine 1 U nivers % 2-28 % eye ity of ophthalmic 17:00: drops [place] drops 45 [facility] Pylera 140 Univers ronidazole- 2-28 mg-125 ity of tetracyclin 17:00: mg-125 mg [place] (PYLERA) 45 capsule Medica l 140-125-125 Branch mg per capsule atropine 1 Yes atropine 1 U nivers % 2-28 % eye ity of ophthalmic 17:00: drops [place] drops 45 [facility] P[place] 140 Univers ronidazole- 2-28 mg-125 ity of tetracyclin 17:00: mg-125 mg [place] (PYLERA) 45 capsule Medica l 140-125-125 Branch mg per capsule atropine 1 Yes atropine 1 U nivers % 2-28 % eye ity of ophthalmic 17:00: drops [place] drops 45 [facility] Pylera 140 Univers ronidazole- 2-28 mg-125 ity of tetracyclin 17:00: mg-125 mg [place] (PYLERA) 45 capsule Medica l 140-125-125 Branch mg per capsule atropine 1 Yes atropine 1 U nivers % 2-28 % eye ity of ophthalmic 17:00: drops [place] drops 45 [facility] P[place] 140 Univers ronidazole- 2-28 mg-125 ity of tetracyclin 17:00: mg-125 mg [place] (PYLERA) 45 capsule Medica l 140-125-125 Branch mg per capsule atropine 1 Yes atropine 1 U nivers % 2-28 % eye ity of ophthalmic 17:00: drops [place] drops 45 [facility] P[place] 140 Univers ronidazole- 2-28 mg-125 ity of tetracyclin 17:00: mg-125 mg [place] (PYLERA) 45 capsule Medica l 140-125-125 Branch mg per capsule atropine 1 Yes atropine 1 U nivers % 2-28 % eye ity of ophthalmic 17:00: drops [place] drops 45 [facility] P[place] 140 Univers ronidazole- 2-28 mg-125 ity of tetracyclin 17:00: mg-125 mg [place] (PYLERA) 45 capsule Medica l 140-125-125 Branch mg per capsule atropine 1 Yes atropine 1 U nivers % 2-28 % eye ity of ophthalmic 17:00: drops [place] drops 45 [facility] P[place] 140 Univers ronidazole- 2-28 mg-125 ity of tetracyclin 17:00: mg-125 mg [place] (PYLERA) 45 capsule Medica l 140-125-125 Branch mg per capsule atropine 1 Yes atropine 1 U nivers % 2-28 % eye ity of ophthalmic 17:00: drops [place] drops 45 [facility] P[place]era 140 Univers ronidazole- 2-28 mg-125 ity of tetracyclin 17:00: mg-125 mg [place] (PYLERA) 45 capsule Medica l 140-125-125 Branch mg per capsule atropine 1 Yes atropine 1 U nivers % 2-28 % eye ity of ophthalmic 17:00: drops [place] drops 45 [facility] [place] [facility] Yes Pylera 140 Univers ronidazole- 2-28 mg-125 ity of tetracyclin 17:00: mg-125 mg [place] (PYLERA) 45 capsule Medica l 140-125-125 Branch mg per capsule atropine 1 Yes atropine 1 U nivers % 2-28 % eye ity of ophthalmic 17:00: drops [place] drops 45 [facility] [place] [facility] Yes Pylera 140 Univers ronidazole- 2-28 mg-125 ity of tetracyclin 17:00: mg-125 mg [place] (PYLERA) 45 capsule Medica l 140-125-125 Branch mg per capsule atropine 1 Yes atropine 1 U nivers % 2-28 % eye ity of ophthalmic 17:00: drops [place] drops 45 [facility] P[place] 140 Univers ronidazole- 2-28 mg-125 ity of tetracyclin 17:00: mg-125 mg [place] (PYLERA) 45 capsule Medica l 140-125-125 Branch mg per capsule atropine 1 Yes atropine 1 U nivers % 2-28 % eye ity of ophthalmic 17:00: drops [place] drops 45 [facility] P[place] 140 Univers ronidazole- 2-28 mg-125 ity of tetracyclin 17:00: mg-125 mg [place] (PYLERA) 45 capsule Medica l 140-125-125 Branch mg per capsule atropine 1 Yes atropine 1 U nivers % 2-28 % eye ity of ophthalmic 17:00: drops [place] drops 45 [facility] Yes Pylera 140 Univers ronidazole- 2-28 mg-125 ity of tetracyclin 17:00: mg-125 mg [place] (PYLERA) 45 capsule Medica l 140-125-125 Branch mg per capsule atropine 1 Yes atropine 1 U nivers % 2-28 % eye ity of ophthalmic 17:00: drops [place] drops 45 [facility] Yes P[place]era 140 Univers ronidazole- 2-28 mg-125 ity of tetracyclin 17:00: mg-125 mg [place] (PYLERA) 45 capsule Medica l 140-125-125 Branch mg per capsule atropine 1 Yes atropine 1 U nivers % 2-28 % eye ity of ophthalmic 17:00: drops [place] drops 45 [facility] P[place] 140 Univers ronidazole- 2-28 mg-125 ity of tetracyclin 17:00: mg-125 mg [place] (PYLERA) 45 capsule Medica l 140-125-125 Branch mg per capsule atropine 1 Yes atropine 1 U nivers % 2-28 % eye ity of ophthalmic 17:00: drops [place] drops 45 [facility] [place] 140 Univers ronidazole- 2-28 mg-125 ity of tetracyclin 17:00: mg-125 mg [place] (PYLERA) 45 capsule Medica l 140-125-125 Branch mg per capsule atropine 1 Yes atropine 1 U nivers % 2-28 % eye ity of ophthalmic 17:00: drops [place] drops 45 [facility] P[place] 140 Univers ronidazole- 2-28 mg-125 ity of tetracyclin 17:00: mg-125 mg [place] (PYLERA) 45 capsule Medica l 140-125-125 Branch mg per capsule atropine 1 Yes atropine 1 U nivers % 2-28 % eye ity of ophthalmic 17:00: drops [place] drops 45 [facility] P[place]era 140 Univers ronidazole- 2-28 mg-125 ity of tetracyclin 17:00: mg-125 mg [place] (PYLERA) 45 capsule Medica l 140-125-125 Branch mg per capsule atropine 1 Yes atropine 1 U nivers % 2-28 % eye ity of ophthalmic 17:00: drops [place] drops 45 [facility] Yes P[place]era 140 Univers ronidazole- 2-28 mg-125 ity of tetracyclin 17:00: mg-125 mg [place] (PYLERA) 45 capsule Medica l 140-125-125 Branch mg per capsule atropine 1 Yes atropine 1 U nivers % 2-28 % eye ity of ophthalmic 17:00: drops [place] drops 45 [facility] [place] [facility] Yes Pylera 140 Univers ronidazole- 2-28 mg-125 ity of tetracyclin 17:00: mg-125 mg [place] (PYLERA) 45 capsule Medica l 140-125-125 Branch mg per capsule atropine 1 Yes atropine 1 U nivers % 2-28 % eye ity of ophthalmic 17:00: drops [place] drops 45 [facility] [place] [facility] Yes Pylera 140 Univers ronidazole- 2-28 mg-125 ity of tetracyclin 17:00: mg-125 mg [place] (PYLERA) 45 capsule Medica l 140-125-125 Branch mg per capsule atropine 1 Yes atropine 1 U nivers % 2-28 % eye ity of ophthalmic 17:00: drops [place] drops 45 [facility] [place] [facility] Yes P[place]era 140 Univers ronidazole- 2-28 mg-125 ity of tetracyclin 17:00: mg-125 mg [place] (PYLERA) 45 capsule Medica l 140-125-125 Branch mg per capsule atropine 1 Yes atropine 1 U nivers % 2-28 % eye ity of ophthalmic 17:00: drops [place] drops 45 [facility] Yes [place] 140 Univers ronidazole- 2-28 mg-125 ity of tetracyclin 17:00: mg-125 mg [place] (PYLERA) 45 capsule Medica l 140-125-125 Branch mg per capsule atropine 1 Yes atropine 1 U nivers % 2-28 % eye ity of ophthalmic 17:00: drops [place] drops 45 [facility] [place] [facility] Yes P[place]era 140 Univers ronidazole- 2-28 mg-125 ity of tetracyclin 17:00: mg-125 mg [place] (PYLERA) 45 capsule Medica l 140-125-125 Branch mg per capsule atropine 1 Yes atropine 1 U nivers % 2-28 % eye ity of ophthalmic 17:00: drops [place] drops 45 [facility] [place] [facility] Yes P[place]era 140 Univers ronidazole- 2-28 mg-125 ity of tetracyclin 17:00: mg-125 mg [place] (PYLERA) 45 capsule Medica l 140-125-125 Branch mg per capsule atropine 1 Yes atropine 1 U nivers % 2-28 % eye ity of ophthalmic 17:00: drops [place] drops 45 [facility] [place] 140 Univers ronidazole- 2-28 mg-125 ity of tetracyclin 17:00: mg-125 mg [place] (PYLERA) 45 capsule Medica l 140-125-125 Branch mg per capsule atropine 1 Yes atropine 1 U nivers % 2-28 % eye ity of ophthalmic 17:00: drops [place] drops 45 [facility] [place] 140 Univers ronidazole- 2-28 mg-125 ity of tetracyclin 17:00: mg-125 mg [place] (PYLERA) 45 capsule Medica l 140-125-125 Branch mg per capsule atropine 1 Yes atropine 1 U nivers % 2-28 % eye ity of ophthalmic 17:00: drops [place] drops 45 [facility] P[place]era 140 Univers ronidazole- 2-28 mg-125 ity of tetracyclin 17:00: mg-125 mg [place] (PYLERA) 45 capsule Medica l 140-125-125 Branch mg per capsule atropine 1 Yes atropine 1 U nivers % 2-28 % eye ity of ophthalmic 17:00: drops [place] drops 45 [facility] P[place] 140 Univers ronidazole- 2-28 mg-125 ity of tetracyclin 17:00: mg-125 mg [place] (PYLERA) 45 capsule Medica l 140-125-125 Branch mg per capsule atropine 1 Yes atropine 1 U nivers % 2-28 % eye ity of ophthalmic 17:00: drops [place] drops 45 [facility] Yes Pylera 140 Univers ronidazole- 2-28 mg-125 ity of tetracyclin 17:00: mg-125 mg [place] (PYLERA) 45 capsule Medica l 140-125-125 Branch mg per capsule atropine 1 Yes atropine 1 U nivers % 2-28 % eye ity of ophthalmic 17:00: drops [place] drops 45 [facility] P[place] 140 Univers ronidazole- 2-28 mg-125 ity of tetracyclin 17:00: mg-125 mg [place] (PYLERA) 45 capsule Medica l 140-125-125 Branch mg per capsule atropine 1 Yes atropine 1 U nivers % 2-28 % eye ity of ophthalmic 17:00: drops [place] drops 45 [facility] Yes P[place] 140 Univers ronidazole- 2-28 mg-125 ity of tetracyclin 17:00: mg-125 mg [place] (PYLERA) 45 capsule Medica l 140-125-125 Branch mg per capsule atropine 1 Yes atropine 1 U nivers % 2-28 % eye ity of ophthalmic 17:00: drops [place] drops 45 [facility] [place] 140 Univers ronidazole- 2-28 mg-125 ity of tetracyclin 17:00: mg-125 mg [place] (PYLERA) 45 capsule Medica l 140-125-125 Branch mg per capsule atropine 1 Yes atropine 1 U nivers % 2-28 % eye ity of ophthalmic 17:00: drops [place] drops 45 [facility] [place] 140 Univers ronidazole- 2-28 mg-125 ity of tetracyclin 17:00: mg-125 mg [place] (PYLERA) 45 capsule Medica l 140-125-125 Branch mg per capsule atropine 1 Yes atropine 1 U nivers % 2-28 % eye ity of ophthalmic 17:00: drops [place] drops 45 [facility] Yes [place] 140 Univers ronidazole- 2-28 mg-125 ity of tetracyclin 17:00: mg-125 mg [place] (PYLERA) 45 capsule Medica l 140-125-125 Branch mg per capsule atropine 1 Yes atropine 1 U nivers % 2-28 % eye ity of ophthalmic 17:00: drops [place] drops 45 [facility] Yes P[place]era 140 Univers ronidazole- 2-28 mg-125 ity of tetracyclin 17:00: mg-125 mg [place] (PYLERA) 45 capsule Medica l 140-125-125 Branch mg per capsule atropine 1 Yes atropine 1 U nivers % 2-28 % eye ity of ophthalmic 17:00: drops [place] drops 45 [facility] P[place] 140 Univers ronidazole- 2-28 mg-125 ity of tetracyclin 17:00: mg-125 mg [place] (PYLERA) 45 capsule Medica l 140-125-125 Branch mg per capsule atropine 1 Yes atropine 1 U nivers % 2-28 % eye ity of ophthalmic 17:00: drops [place] drops 45 [facility] P[place] 140 Univers ronidazole- 2-28 mg-125 ity of tetracyclin 17:00: mg-125 mg [place] (PYLERA) 45 capsule Medica l 140-125-125 Branch mg per capsule atropine 1 Yes atropine 1 U nivers % 2-28 % eye ity of ophthalmic 17:00: drops [place] drops 45 [facility] P[place] 140 Univers ronidazole- 2-28 mg-125 ity of tetracyclin 17:00: mg-125 mg [place] (PYLERA) 45 capsule Medica l 140-125-125 Branch mg per capsule atropine 1 Yes atropine 1 U nivers % 2-28 % eye ity of ophthalmic 17:00: drops [place] drops 45 [facility] [place] 140 Univers ronidazole- 2-28 mg-125 ity of tetracyclin 17:00: mg-125 mg [place] (PYLERA) 45 capsule Medica l 140-125-125 Branch mg per capsule atropine 1 Yes atropine 1 U nivers % 2-28 % eye ity of ophthalmic 17:00: drops [place] drops 45 [facility] Yes P[place]era 140 Univers ronidazole- 2-28 mg-125 ity of tetracyclin 17:00: mg-125 mg [place] (PYLERA) 45 capsule Medica l 140-125-125 Branch mg per capsule atropine 1 Yes atropine 1 U nivers % 2-28 % eye ity of ophthalmic 17:00: drops [place] drops 45 [facility] Yes Pylera 140 Univers ronidazole- 2-28 mg-125 ity of tetracyclin 17:00: mg-125 mg [place] (PYLERA) 45 capsule Medica l 140-125-125 Branch mg per capsule metoprolol 2022- No [id number] 25mg Take 1 Univers succinate 2-09 07-31 tablet by ity of XL 25 mg 24 00:00: 04:59 mouth at [place] tablet 00 :00 bedtime Medical for 30 Branch days. furosemide 2022- No [id number] 40mg Take 1 Univers 40 mg 06-11- tablet by ity of tablet 00:00: 04:59 mouth in [place] 00 :00 the Medical morning Branch for 30 days. metoprolol 2022- No [id number] 25mg Take 1 Univers succinate 2-09 07- tablet by ity of XL 25 mg 24 00:00: 04:59 mouth at [place] tablet 00 :00 bedtime Medical for 30 Branch days. furosemide 2022- No [id number] 40mg Take 1 Univers 40 mg 06-11- tablet by ity of tablet 00:00: 04:59 mouth in [place] 00 :00 the Medical morning Branch for 30 days. metoprolol 2022- No [id number] 25mg Take 1 Univers succinate 2- tablet by ity of XL 25 mg 24 00:00: 04:59 mouth at [place] tablet 00 :00 bedtime Medical for 30 Branch days. furosemide 2022- No [id number] 40mg Take 1 Univers 40 mg 2-09 07- tablet by ity of tablet 00:00: 04:59 mouth in [place] 00 :00 the Medical morning Branch for 30 days. metoprolol 2022- No [id number] 25mg Take 1 Univers succinate 2-09 07-31 tablet by ity of XL 25 mg 24 00:00: 04:59 mouth at [place] tablet 00 :00 bedtime Medical for 30 Branch days. furosemide 2022-0 2022- No [id number] 40mg Take 1 Univers 40 mg 2-28 -31 tablet by ity of tablet 00:00: 04:59 mouth in [place] 00 :00 the Medical morning Branch for 30 days. metoprolol 2022-2022- No [id number] 25mg Take 1 Univers succinate 2-28 -31 tablet by ity of XL 25 mg 24 00:00: 04:59 mouth at [place] tablet 00 :00 bedtime Medical for 30 Branch days. furosemide 2022-2022- No [id number] 40mg Take 1 Univers 40 mg 2-28 -31 tablet by ity of tablet 00:00: 04:59 mouth in [place] 00 :00 the Medical morning Branch for 30 days. metoprolol 2022-2022- No [id number] 25mg Take 1 Univers succinate 2-09 07-31 tablet by ity of XL 25 mg 24 00:00: 04:59 mouth at [place] tablet 00 :00 bedtime Medical for 30 Branch days. furosemide 2022-2022- No [id number] 40mg Take 1 Univers 40 mg 2-09 07-31 tablet by ity of tablet 00:00: 04:59 mouth in [place] 00 :00 the [facility] morning Branch for 30 days. metoprolol 2022-0 2022- No [id number] 25mg Take 1 Univers succinate 2-09 07-31 tablet by ity of XL 25 mg 24 00:00: 04:59 mouth at [place] tablet 00 :00 bedtime Medical for 30 Branch days. furosemide 2022-2022- No [id number] 40mg Take 1 Univers 40 mg 2-28 -31 tablet by ity of tablet 00:00: 04:59 mouth in [place] 00 :00 the Medical morning Branch for 30 days. metoprolol 2022-0 2022- No [id number] 25mg Take 1 Univers succinate 2-28 -31 tablet by ity of XL 25 mg 24 00:00: 04:59 mouth at [place] tablet 00 :00 bedtime Medical for 30 Branch days. furosemide 2022-0 2022- No [id number] 40mg Take 1 Univers 40 mg 2-28 -31 tablet by ity of tablet 00:00: 04:59 mouth in [place] 00 :00 the Medical morning Branch for 30 days. metoprolol 2022-0 2022- No [id number] 25mg Take 1 Univers succinate 2-09 07-31 tablet by ity of XL 25 mg 24 00:00: 04:59 mouth at [place] tablet 00 :00 bedtime Medical for 30 Branch days. furosemide 2022-0 2022- No [id number] 40mg Take 1 Univers 40 mg 2-09 07-31 tablet by ity of tablet 00:00: 04:59 mouth in [place] 00 :00 the Medical morning Branch for 30 days. metoprolol 2022-0 2022- No [id number] 25mg Take 1 Univers succinate 2-09 07- tablet by ity of XL 25 mg 24 00:00: 04:59 mouth at [place] tablet 00 :00 bedtime Medical for 30 Branch days. furosemide 2022-0 2022- No [id number] 40mg Take 1 Univers 40 mg 2-09 07- tablet by ity of tablet 00:00: 04:59 mouth in [place] 00 :00 the [facility] morning [place] for 30 days. metoprolol 2022-0 2022- No [id number] 25mg Take 1 Univers succinate 2-09 07- tablet by ity of XL 25 mg 24 00:00: 04:59 mouth at [place] tablet 00 :00 bedtime Medical for 30 Branch days. furosemide 2022-2022- No [id number] 40mg Take 1 Univers 40 mg 2-09 07- tablet by ity of tablet 00:00: 04:59 mouth in [place] 00 :00 the Medical morning Branch for 30 days. metoprolol 2022-0 2022- No [id number] 25mg Take 1 Univers succinate 2-09 07-31 tablet by ity of XL 25 mg 24 00:00: 04:59 mouth at [place] tablet 00 :00 bedtime Medical for 30 Branch days. furosemide 2022-0 2022- No [id number] 40mg Take 1 Univers 40 mg 2-09 07-31 tablet by ity of tablet 00:00: 04:59 mouth in [place] 00 :00 the Medical morning Branch for 30 days. metoprolol 2022-0 2022- No [id number] 25mg Take 1 Univers succinate 2-28 -31 tablet by ity of XL 25 mg 24 00:00: 04:59 mouth at [place] tablet 00 :00 bedtime Medical for 30 Branch days. furosemide 2022-0 2022- No [id number] 40mg Take 1 Univers 40 mg 2-09 07-31 tablet by ity of tablet 00:00: 04:59 mouth in [place] 00 :00 the Medical morning Branch for 30 days. metoprolol 2022-0 2022- No [id number] 25mg Take 1 Univers succinate 2-09 07-31 tablet by ity of XL 25 mg 24 00:00: 04:59 mouth at [place] tablet 00 :00 bedtime Medical for 30 Branch days. furosemide 2022-0 2022- No [id number] 40mg Take 1 Univers 40 mg 2-09 07- tablet by ity of tablet 00:00: 04:59 mouth in [place] 00 :00 the Medical morning Branch for 30 days. metoprolol 2022-0 2022- No [id number] 25mg Take 1 Univers succinate 2- tablet by ity of XL 25 mg 24 00:00: 04:59 mouth [place] tablet 00 :00 bedtime Medical for 30 Branch days. furosemide 2022-2022- No [id number] 40mg Take 1 Univers 40 mg 2-09 07- tablet by ity of tablet 00:00: 04:59 mouth in [place] 00 :00 the Medical morning Branch for 30 days. metoprolol 2022-0 2022- No [id number] 25mg Take 1 Univers succinate 2- tablet by ity of XL 25 mg 24 00:00: 04:59 mouth [place] tablet 00 :00 bedtime Medical for 30 Branch days. furosemide 2022-0 2022- No [id number] 40mg Take 1 Univers 40 mg 2-09 07- tablet by ity of tablet 00:00: 04:59 mouth in [place] 00 :00 the Medical morning Branch for 30 days. metoprolol 2022-0 2022- No [id number] 25mg Take 1 Univers succinate 2-09 07-31 tablet by ity of XL 25 mg 24 00:00: 04:59 mouth at [place] tablet 00 :00 bedtime Medical for 30 Branch days. furosemide 2022-0 2022- No [id number] 40mg Take 1 Univers 40 mg 2-28 -31 tablet by ity of tablet 00:00: 04:59 mouth in [place] 00 :00 the Medical morning Branch for 30 days. metoprolol 2022-0 2022- No [id number] 25mg Take 1 Univers succinate 2-28 -31 tablet by ity of XL 25 mg 24 00:00: 04:59 mouth at [place] tablet 00 :00 bedtime Medical for 30 Branch days. furosemide 2022-0 2022- No [id number] 40mg Take 1 Univers 40 mg 2-28 -31 tablet by ity of tablet 00:00: 04:59 mouth in [place] 00 :00 the Medical morning Branch for 30 days. metoprolol 2022-0 2022- No [id number] 25mg Take 1 Univers succinate 2-09 07-31 tablet by ity of XL 25 mg 24 00:00: 04:59 mouth at [place] tablet 00 :00 bedtime Medical for 30 Branch days. furosemide 2022-0 2022- No [id number] 40mg Take 1 Univers 40 mg 2-09 07-31 tablet by ity of tablet 00:00: 04:59 mouth in [place] 00 :00 the Medical morning Branch for 30 days. metoprolol 2022-0 2022- No [id number] 25mg Take 1 Univers succinate 2-09 07-31 tablet by ity of XL 25 mg 24 00:00: 04:59 mouth at [place] tablet 00 :00 bedtime Medical for 30 Branch days. furosemide 2022-0 2022- No [id number] 40mg Take 1 Univers 40 mg 2-09 07-31 tablet by ity of tablet 00:00: 04:59 mouth in [place] 00 :00 the Medical morning Branch for 30 days. metoprolol 2022-0 2022- No [id number] 25mg Take 1 Univers succinate 2-28 -31 tablet by ity of XL 25 mg 24 00:00: 04:59 mouth at [place] tablet 00 :00 bedtime Medical for 30 Branch days. furosemide 2022-0 2022- No [id number] 40mg Take 1 Univers 40 mg 2-28 -31 tablet by ity of tablet 00:00: 04:59 mouth in [place] 00 :00 the Medical morning Branch for 30 days. metoprolol 2023-0 2022- No [id number] 25mg Take 1 Univers succinate 06-11 tablet by ity of XL 25 mg 24 00:00: 04:59 mouth at [place] tablet 00 :00 bedtime Medical for 30 Branch days. furosemide 2022-0 2022- No [id number] 40mg Take 1 Univers 40 mg 06-11 tablet by ity of tablet 00:00: 04:59 mouth in [place] 00 :00 the Medical morning Branch for 30 days. magnesium 2022-0 2022- No 400mg 400 mg, Uni vers oxide 06-10 Oral, BID, ity of (MAG-OX 15:15: 13:59 8 doses, [place] 400) tablet 00 :00 First dose Me dical 400 mg on [facility] Branch 06/10/22 at 0915, Last dose on [facility] 06/13/22 at 2000, Routine KCL 2022-0 Yes 40meq 40 mEq, Univers (KLOR-CON - Oral, ity of M20) tablet 15:00: DAILY, [place] 40 mEq 00 First dose Medical on [place] Branch 06/09/22 at 0900, Until Discontinu ed, Routine furosemide 2022-0 Yes 40mg 40 mg, Unive rs (LASIX) 2- Slow IV ity of injection 15:00: Push, [place] 40 mg 00 DAILY, Medical First dose Branch (after last modificati on) on [place] 06/09/22 at 0900, Until Discontinu ed, DEANGELO polyethylen 2022-0 Yes 17g 17 g, Unive rs e glycol - Oral, ity of 3350 powder 15:00: DAILY, [place] 17 g 00 First dose Medical on [place] Branch 06/09/22 at 0900, Until Discontinu ed, Routine metoprolol 2022-0 Yes 25mg 25 mg, Unive rs succinate - Oral, QHS, ity of XL (TOPROL 03:00: First dose [place] XL) tablet 00 (after Medical 25 mg last Branch modificati on) on [facility] 06/08/22 at 2100, Until Discontinu ed, DEANGELO pantoprazol 2022-0 Yes 40mg 40 mg, Univ ers e 2-26 Oral, ity of (PROTONIX) 01:15: DAILY, [place] EC tablet 00 First dose Medi akash 40 mg on Sat Branch 06/08/22 at 1915, Until Discontinu ed, Routine sodium 0 Yes 1{spray 1 [place], Univ ers chloride 06-09 } Nasal, ity of (OCEAN MIST 01:11: PRN, [place] NASAL) 0.65 32 Starting Medi akash % nasal on Sat Branch spray 1 06/08/22 at [place] 1911, Until Discontinu ed, Routine, dry nose lactulose 0 2022- No 30mL 30 mL, Unive rs (CEPHULAC) 2-25 02-25 Oral, ity of solution 30 16:45: 16:07 ONCE, 1 [place] mL 00 :00 dose, On Medical Sat Branch 06/08/22 at 1045, Routine sennosides- 0 Yes 1{tbl} 1 tablet, Univers docusate 25 Oral, ity of sodium 16:00: DAILY, [place] (SENOKOT-S) 00 First dose Me dical 8.6-50 mg on [facility] Branch per tablet 06/08/22 at 1 tablet 1000, Until Discontinu ed, Routine rosuvastati Yes 20mg 20 mg, Univ ers n (CRESTOR) 2-25 Oral, QHS, it y of tablet 20 03:00: First dose [place] mg 00 on Fri Medical 06/07/22 at Branch 2100, Until Discontinu ed, Routine meloxicam 0 Yes 7.5mg 7.5 mg, Univ ers (MOBIC) 224 Oral, ity of tablet 7.5 15:00: DAILY, [place] mg 00 First dose Medical on Fri Branch 06/07/22 at 0900, Until Discontinu ed, Routine codeine-gua 0 Yes 10mL 10 mL, Univ ers ifenesin 2-24 Oral, ity of (ROBITUSSIN 08:38: TIDPRN, [place] as AC) 10-100 48 Starting Medic al mg/5 mL on Fri Branch oral 06/07/22 at solution 10 0238, mL Until Discontinu ed, Routine, Cough aspirin 2022-0 Yes 81mg 81 mg, Univers chewable 2-24 Oral, QAM ity of tablet 81 07:00: [...] Routine furosemide 2022- No 40mg 40 mg, Univ ers (LASIX) 06-07 Slow IV ity of injection 07:00: 04:16 Push, [place] 40 mg 00 :29 Q12H, Medical First dose Branch (after last reorder) on Fri06/07/22 at 0100, Until Discontinu ed, DEANGELO metoprolol 2022- No 50mg 50 mg, Univ ers succinate 06-07 Oral, QHS, ity of XL (TOPROL 07:00: 16:47 First dose [place] XL) tablet 00 :40 on Fri Medical 50 mg 06/07/22 at Branch 0100, Until Discontinu ed, DEANGELO Sliding Yes Subcutaneo Univ ers Scale 06-06 us, TID ity of Insulin - 23:00: MEALS+HS, Jefry as Lispro 00 First dose Medical (HumaLOG) + on Fri Fsbg 06/06/22 at Testing 1700, Until Discontinu [...] KIT) 45 Starting Medical injection 1 on Fri Branch mg 06/06/22 at 1440, Until Discontinu ed, DEANGELO, Blood Glucose < or = 70 mg/dL and patient is NPO, unable to swallow or has mental changes. dextrose 50 0 Yes 25mL 25 mL, Univ ers % [...] 06-06 Oral, ity of (TYLENOL) 20:40: Q6HPRN, [place] tablet 650 17 Starting Medic al mg on [place] Branch 06/06/22 at 1440, Until Discontinu ed, Routine, Pain (scale 1-3) furosemide 2022- No 40mg 40 mg, IV U nivers (LASIX) 06-06 Push, ity of injection 18:15: 19:11 [place]CE, 1 [place] 00 :00 dose, On [facility] Branch 06/06/22 at 1215, DEANGELO doxycycline 2022- No doxycyclin Univers hyclate 100 06-01 e hyclate it y of mg capsule 13:56: 00:00 [place] 01 :00 capsule [facility] nirmatrelvi 2022- No [id number] 2{tbl} Take 2 Univers r-ritonavir 2-18 -28 tablets by i ty of (PAXLOVID, 00:00: 00:00 [place] EU[place] 00 :00 the Medical 150-100 mg morning Branch tablet and 2 tablets in the evening. Do all this for 5 days. nirmatrelvi 2022- No [id number] 2{tbl} Take 2 Univers r-ritonavir 2-18 -24 tablets by i ty of (PAXLOVID, 00:00: 05:59 [place] 00 :00 the Medical 150-100 mg morning Branch tablet and 2 tablets in the evening. Do all this for 5 days. nirmatrelvi 2022- No [id number] 2{tbl} Take 2 Univers r-ritonavir 2-18 02-24 tablets by i ty of (PAXLOVID, 00:00: 05:59 mouth [place] EU[place] 00 :00 the Medical 150-100 mg morning Branch tablet and 2 tablets in the evening. Do all this for 5 days. dapaglifloz 3-0 Yes [id number] TAKE 1 [facility] in 2-14 TABLET BY ity of (XIGA) 00:00: MOUTH [place] 10 mg 00 DAILY. Medical tablet STOP Branch JARDIANCE. dapaglifloz 3-0 Yes [id number] TAKE 1 [facility] in 2-14 TABLET BY ity of (XI) 00:00: MOUTH [place] 10 mg 00 DAILY. Medical tablet STOP Branch JARDIANCE. dapaglifloz 2022-0 Yes [id number] TAKE 1 [facility] in 2-14 TABLET BY ity of (XIGA) 00:00: MOUTH [place] 10 mg 00 DAILY. Medical tablet STOP Branch JARDIANCE. dapaglifloz 2022-0 2023- No [id number] TAKE 1 [facility] in 2-14 -28 TABLET BY ity of () 00:00: 00:00 MOUTH [place] 10 mg 00 :00 DAILY. Medical tablet STOP Branch JARDIANCE. magnesium 0 Yes [id number] TAKE 2 U nivers oxide 400 2-08 TABLETS BY ity of mg (241.3 00:00: MOUTH 4 [place] mg 00 TIMES Medical magnesium) DAILY Branch tablet Insulin 2022-0 Yes [id number] Use as Univ ers [place], 2-08 directed ity of Disposable, 00:00: once daily [place] (RELION PEN 00 to inject Med ical NEEDLES) 32 insulin; Bran ch gauge x E11.65 5/32" Ndle glipiZIDE 2022-0 Yes [id number] 10mg Take 1 Un [place] XL 10 mg 24 2-08 tablet by ity of hr tablet 00:00: mouth [place] 00 daily with Medical breakfast. Branch STOP GLIMEPIRID E. magnesium 2022-0 Yes [id number] TAKE 2 U nivers oxide 400 2-08 TABLETS BY ity of mg (241.3 00:00: MOUTH 4 [place] mg 00 TIMES Medical magnesium) DAILY Branch tablet Insulin 2022-0 Yes [id number] Use as [facility] [place], 2-08 directed ity of Disposable, 00:00: once daily [place] (RELION PEN 00 to inject Med ical NEEDLES) 32 insulin; Bran ch gauge x E11.65 5/32" Ndle glipiZIDE 2023-0 Yes [id number] 10mg Take 1 Un [place] XL 10 mg 24 2-08 tablet by ity of hr tablet 00:00: mouth [place] 00 daily with Medical breakfast. Branch STOP GLIMEPIRID E. magnesium Yes [id number] TAKE 2 U nivers oxide 400 2-08 TABLETS BY ity of mg (241.3 00:00: MOUTH 4 [place] mg 00 TIMES Medical magnesium) DAILY Branch tablet Insulin Yes [id number] Use as [facility] [place], 2-08 directed ity of Disposable, 00:00: once daily [place] (RELION PEN 00 to inject Med ical NEEDLES) 32 insulin; Bran ch gauge x E11.65 5/32" Ndle glipiZIDE Yes [id number] 10mg Take 1 Un [place] XL 10 mg 24 2-08 tablet by ity of hr tablet 00:00: mouth [place] 00 daily with Medical breakfast. Branch STOP GLIMEPIRID E. magnesium Yes [id number] TAKE 2 U nivers oxide 400 2-08 TABLETS BY ity of mg (241.3 00:00: MOUTH 4 [place] mg 00 TIMES Medical magnesium) DAILY Branch tablet Insulin Yes [id number] Use as [facility] [place], 2-08 directed ity of Disposable, 00:00: once daily [place] (RELION PEN 00 to inject Med ical NEEDLES) 32 insulin; Bran ch gauge x E11.65 32" Ndle glipiZIDE Yes [id number] 10mg Take 1 [facility] [place] XL 10 mg 24 2-08 tablet by ity of hr tablet 00:00: mouth [place] 00 daily with Medical breakfast. Branch STOP GLIMEPIRID E. magnesium Yes [id number] TAKE 2 U nivers oxide 400 2-08 TABLETS BY ity of mg (241.3 00:00: MOUTH 4 [place] mg 00 TIMES Medical magnesium) DAILY Branch tablet Insulin Yes [id number] Use as [facility] [place], 2-08 directed ity of Disposable, 00:00: once daily [place] (RELION PEN 00 to inject Med ical NEEDLES) 32 insulin; Bran ch gauge x E11.65 5/32" Ndle glipiZIDE 0 Yes [id number] 10mg Take 1 Un [place] XL 10 mg 24 2-08 tablet by ity of hr tablet 00:00: mouth [place] 00 daily with Medical breakfast. Branch STOP GLIMEPIRID E. magnesium Yes [id number] TAKE 2 U nivers oxide 400 2-08 TABLETS BY ity of mg (241.3 00:00: MOUTH 4 [place] mg 00 TIMES Medical magnesium) DAILY Branch tablet Insulin Yes [id number] Use as [facility] [place], 2-08 directed ity of Disposable, 00:00: once daily [place] (RELION PEN 00 to inject Med ical NEEDLES) 32 insulin; Bran ch gauge x E11.65 32" Ndle glipiZIDE Yes [id number] 10mg Take 1 [facility] [place] XL 10 mg 24 2-08 tablet by ity of hr tablet 00:00: mouth [place] 00 daily with Medical breakfast. Branch STOP GLIMEPIRID E. magnesium Yes [id number] TAKE 2 U nivers oxide 400 2-08 TABLETS BY ity of mg (241.3 00:00: MOUTH 4 [place] mg 00 TIMES Medical magnesium) DAILY Branch tablet Insulin Yes [id number] Use as [facility] [place], 2-08 directed ity of Disposable, 00:00: once daily [place] (RELION PEN 00 to inject Med ical NEEDLES) 32 insulin; Bran ch gauge x E11.65 32" Ndle glipiZIDE Yes [id number] 10mg Take 1 [place] XL 10 mg 24 2-08 tablet by ity of hr tablet 00:00: mouth [place] 00 daily with Medical breakfast. Branch STOP GLIMEPIRID E. magnesium Yes [id number] TAKE 2 U nivers oxide 400 2-08 TABLETS BY ity of mg (241.3 00:00: MOUTH 4 [place] mg 00 TIMES Medical magnesium) DAILY Branch tablet Insulin Yes [id number] Use as [facility] [place], 2-08 directed ity of Disposable, 00:00: once daily [place] (RELION PEN 00 to inject Med ical NEEDLES) 32 insulin; Bran ch gauge x E11.65 5/32" Ndle glipiZIDE Yes [id number] 10mg Take 1 Un [place] XL 10 mg 24 2-08 tablet by ity of hr tablet 00:00: mouth [place] 00 daily with Medical breakfast. Branch STOP GLIMEPIRID E. magnesium 2023-0 Yes [id number] TAKE 2 U nivers oxide 400 2-08 TABLETS BY ity of mg (241.3 00:00: MOUTH 4 [place] mg 00 TIMES Medical magnesium) DAILY Branch tablet Insulin Yes [id number] Use as [facility] [place], 2-08 directed ity of Disposable, 00:00: once daily [place] (RELION PEN 00 to inject Med ical NEEDLES) 32 insulin; Bran ch gauge x E11.65 32" Ndle glipiZIDE Yes [id number] 10mg Take 1 [place] XL 10 mg 24 2-08 tablet by ity of hr tablet 00:00: mouth [place] 00 daily with Medical breakfast. Branch STOP GLIMEPIRID E. magnesium Yes [id number] TAKE 2 U nivers oxide 400 2-08 TABLETS BY ity of mg (241.3 00:00: MOUTH 4 [place] mg 00 TIMES Medical magnesium) DAILY Branch tablet Insulin Yes [id number] Use as [facility] [place], 2-08 directed ity of Disposable, 00:00: once daily [place] (RELION PEN 00 to inject Med ical NEEDLES) 32 insulin; Bran ch gauge x E11.65 " Ndle glipiZIDE 0 Yes [id number] 10mg Take 1 [facility] [place] XL 10 mg 24 2-08 tablet by ity of hr tablet 00:00: mouth [place] 00 daily with Medical breakfast. Branch STOP GLIMEPIRID E. magnesium Yes [id number] TAKE 2 U nivers oxide 400 2-08 TABLETS BY ity of mg (241.3 00:00: MOUTH 4 [place] mg 00 TIMES Medical magnesium) DAILY Branch tablet Insulin Yes [id number] Use as [facility] [place], 2-08 directed ity of Disposable, 00:00: once daily [place] (RELION PEN 00 to inject Med ical NEEDLES) 32 insulin; Bran ch gauge x E11.65 " Ndle glipiZIDE 0 Yes [id number] 10mg Take 1 Un [place] XL 10 mg 24 2-08 tablet by ity of hr tablet 00:00: mouth [place] 00 daily with Medical breakfast. Branch STOP GLIMEPIRID E. magnesium 0 Yes [id number] TAKE 2 U nivers oxide 400 2-08 TABLETS BY ity of mg (241.3 00:00: MOUTH 4 [place] mg 00 TIMES Medical magnesium) DAILY Branch tablet Insulin Yes [id number] Use as Univ [facility] [place], 2-08 directed ity of Disposable, 00:00: once daily [place] (RELION PEN 00 to inject Med ical NEEDLES) 32 insulin; [place] ch gauge x E11.65 32" Ndle glipiZIDE Yes [id number] 10mg Take 1 [place] XL 10 mg 24 2-08 tablet by ity of hr tablet 00:00: mouth [place] 00 daily with Medical breakfast. Branch STOP GLIMEPIRID E. magnesium Yes [id number] TAKE 2 U nivers oxide 400 2-08 TABLETS BY ity of mg (241.3 00:00: MOUTH 4 [place] mg 00 TIMES Medical magnesium) DAILY Branch tablet Insulin Yes [id number] Use as [facility] [place], 2-08 directed ity of Disposable, 00:00: once daily [place] (RELION PEN 00 to inject Med ical NEEDLES) 32 insulin; Bran ch gauge x E11.65 32" Ndle glipiZIDE 0 Yes [id number] 10mg Take 1 [place] XL 10 mg 24 2-08 tablet by ity of hr tablet 00:00: mouth [place] 00 daily with Medical breakfast. Branch STOP GLIMEPIRID E. magnesium Yes [id number] TAKE 2 U nivers oxide 400 2-08 TABLETS BY ity of mg (241.3 00:00: MOUTH 4 [place] mg 00 TIMES Medical magnesium) DAILY Branch tablet Insulin Yes [id number] Use as Univ [facility] [place], 2-08 directed ity of Disposable, 00:00: once daily [place] (RELION PEN 00 to inject Med ical NEEDLES) 32 insulin; [place] ch gauge x E11.65 32" Ndle glipiZIDE 0 Yes [id number] 10mg Take 1 [facility] [place] XL 10 mg 24 2-08 tablet by ity of hr tablet 00:00: mouth [place] 00 daily with Medical breakfast. Branch STOP GLIMEPIRID E. magnesium Yes [id number] TAKE 2 U nivers oxide 400 2-08 TABLETS BY ity of mg (241.3 00:00: MOUTH 4 [place] mg 00 TIMES Medical magnesium) DAILY Branch tablet Insulin Yes [id number] Use as [facility] [place], 2-08 directed ity of Disposable, 00:00: once daily [place] (RELION PEN 00 to inject Med ical NEEDLES) 32 insulin; Bran ch gauge x E11.65 5/32" Ndle glipiZIDE 2022-0 Yes [id number] 10mg Take 1 Un [place] XL 10 mg 24 2-08 tablet by ity of hr tablet 00:00: mouth [place] 00 daily with Medical breakfast. Branch STOP GLIMEPIRID E. magnesium 2022-0 Yes [id number] TAKE 2 U nivers oxide 400 2-08 TABLETS BY ity of mg (241.3 00:00: MOUTH 4 [place] mg 00 TIMES Medical magnesium) DAILY Branch tablet Insulin 2022-0 Yes [id number] Use as [facility] [place], 2-08 directed ity of Disposable, 00:00: once daily [place] (RELION PEN 00 to inject Med ical NEEDLES) 32 insulin; Bran ch gauge x E11.65 5/32" Ndle glipiZIDE 2022-0 Yes [id number] 10mg Take 1 Un [place] XL 10 mg 24 2-08 tablet by ity of hr tablet 00:00: mouth [place] 00 daily with Medical breakfast. Branch STOP GLIMEPIRID E. magnesium 2022-0 Yes [id number] TAKE 2 U nivers oxide 400 2-08 TABLETS BY ity of mg (241.3 00:00: MOUTH 4 [place] mg 00 TIMES Medical magnesium) DAILY Branch tablet Insulin 2022-0 Yes [id number] Use as [facility] [place], 2-08 directed ity of Disposable, 00:00: once daily [place] (RELION PEN 00 to inject Med ical NEEDLES) 32 insulin; Bran ch gauge x E11.65 5/32" Ndle glipiZIDE 2022-0 Yes [id number] 10mg Take 1 Un [place] XL 10 mg 24 2-08 tablet by ity of hr tablet 00:00: mouth [place] 00 daily with Medical breakfast. Branch STOP GLIMEPIRID E. magnesium 2022-0 Yes [id number] TAKE 2 U nivers oxide 400 2-08 TABLETS BY ity of mg (241.3 00:00: MOUTH 4 [place] mg 00 TIMES Medical magnesium) DAILY Branch tablet Insulin 2022-0 Yes [id number] Use as Univ [facility] [place], 2-08 directed ity of Disposable, 00:00: once daily [place] (RELION PEN 00 to inject Med ical NEEDLES) 32 insulin; Bran ch gauge x E11.65 32" Ndle glipiZIDE 0 Yes [id number] 10mg Take 1 Un [place] XL 10 mg 24 2-08 tablet by ity of hr tablet 00:00: mouth [place] 00 daily with Medical breakfast. Branch STOP GLIMEPIRID E. magnesium Yes [id number] TAKE 2 U nivers oxide 400 2-08 TABLETS BY ity of mg (241.3 00:00: MOUTH 4 [place] mg 00 TIMES Medical magnesium) DAILY Branch tablet Insulin Yes [id number] Use as Univ ers [place], 2-08 directed ity of Disposable, 00:00: once daily [place] (RELION PEN 00 to inject Med ical NEEDLES) 32 insulin; Bran ch gauge x E11.65 " Ndle glipiZIDE Yes [id number] 10mg Take 1 Un [place] XL 10 mg 24 2-08 tablet by ity of hr tablet 00:00: mouth [place] 00 daily with Medical breakfast. Branch STOP GLIMEPIRID E. magnesium Yes [id number] TAKE 2 U nivers oxide 400 2-08 TABLETS BY ity of mg (241.3 00:00: MOUTH 4 [place] mg 00 TIMES Medical magnesium) DAILY Branch tablet Insulin Yes [id number] Use as [facility] [place], 2-08 directed ity of Disposable, 00:00: once daily [place] (RELION PEN 00 to inject Med ical NEEDLES) 32 insulin; [place] ch gauge x E11.65 " Ndle glipiZIDE 0 Yes [id number] 10mg Take 1 Un [place] XL 10 mg 24 2-08 tablet by ity of hr tablet 00:00: mouth [place] 00 daily with Medical breakfast. Branch STOP GLIMEPIRID E. magnesium Yes [id number] TAKE 2 U nivers oxide 400 2-08 TABLETS BY ity of mg (241.3 00:00: MOUTH 4 [place] mg 00 TIMES Medical magnesium) DAILY Branch tablet Insulin 0 Yes [id number] Use as [facility] [place], 2-08 directed ity of Disposable, 00:00: once daily [place] (RELION PEN 00 to inject Med ical NEEDLES) 32 insulin; Bran ch gauge x E11.65 32" Ndle glipiZIDE 0 Yes [id number] 10mg Take 1 Un [place] XL 10 mg 24 2-08 tablet by ity of hr tablet 00:00: mouth [place] 00 daily with Medical breakfast. Branch STOP GLIMEPIRID E. magnesium Yes [id number] TAKE 2 U nivers oxide 400 2-08 TABLETS BY ity of mg (241.3 00:00: MOUTH 4 [place] mg 00 TIMES Medical magnesium) DAILY Branch tablet Insulin Yes [id number] Use as [facility] [place], 2-08 directed ity of Disposable, 00:00: once daily [place] (RELION PEN 00 to inject Med ical NEEDLES) 32 insulin; Bran ch gauge x E11.65 5/32" Ndle glipiZIDE 0 Yes [id number] 10mg Take 1 [facility] [place] XL 10 mg 24 2-08 tablet by ity of hr tablet 00:00: mouth [place] 00 daily with Medical breakfast. Branch STOP GLIMEPIRID E. magnesium Yes [id number] TAKE 2 U nivers oxide 400 2-08 TABLETS BY ity of mg (241.3 00:00: MOUTH 4 [place] mg 00 TIMES Medical magnesium) DAILY Branch tablet Insulin Yes [id number] Use as [facility] [place], 2-08 directed ity of Disposable, 00:00: once daily [place] (RELION PEN 00 to inject Med ical NEEDLES) 32 insulin; Bran ch gauge x E11.65 32" Ndle glipiZIDE Yes [id number] 10mg Take 1 [facility] [place] XL 10 mg 24 2-08 tablet by ity of hr tablet 00:00: mouth [place] 00 daily with Medical breakfast. Branch STOP GLIMEPIRID E. magnesium Yes [id number] TAKE 2 U nivers oxide 400 2-08 TABLETS BY ity of mg (241.3 00:00: MOUTH 4 [place] mg 00 TIMES Medical magnesium) DAILY Branch tablet Insulin Yes [id number] Use as [facility] [place], 2-08 directed ity of Disposable, 00:00: once daily [place] (RELION PEN 00 to inject Med ical NEEDLES) 32 insulin; Bran ch gauge x E11.65 5/32" Ndle glipiZIDE 2022-0 Yes [id number] 10mg Take 1 Un [place] XL 10 mg 24 2-08 tablet by ity of hr tablet 00:00: mouth [place] 00 daily with Medical breakfast. Branch STOP GLIMEPIRID E. magnesium Yes [id number] TAKE 2 U nivers oxide 400 2-08 TABLETS BY ity of mg (241.3 00:00: MOUTH 4 [place] mg 00 TIMES Medical magnesium) DAILY Branch tablet Insulin Yes [id number] Use as [facility] [place], 2-08 directed ity of Disposable, 00:00: once daily [place] (RELION PEN 00 to inject Med ical NEEDLES) 32 insulin; Bran ch gauge x E11.65 5/32" Ndle glipiZIDE Yes [id number] 10mg Take 1 [facility] [place] XL 10 mg 24 2-08 tablet by ity of hr tablet 00:00: mouth [place] 00 daily with Medical breakfast. Branch STOP GLIMEPIRID E. magnesium Yes [id number] TAKE 2 U nivers oxide 400 2-08 TABLETS BY ity of mg (241.3 00:00: MOUTH 4 [place] mg 00 TIMES Medical magnesium) DAILY Branch tablet Insulin Yes [id number] Use as [facility] [place], 2-08 directed ity of Disposable, 00:00: once daily [place] (RELION PEN 00 to inject Med ical NEEDLES) 32 insulin; Bran ch gauge x E11.65 5/32" Ndle glipiZIDE 2022- Yes [id number] 10mg Take 1 Un [place] XL 10 mg 24 2-08 tablet by ity of hr tablet 00:00: mouth [place] 00 daily with Medical breakfast. Branch STOP GLIMEPIRID E. magnesium 0 Yes [id number] TAKE 2 U nivers oxide 400 2-08 TABLETS BY ity of mg (241.3 00:00: MOUTH 4 [place] mg 00 TIMES Medical magnesium) DAILY Branch tablet Insulin Yes [id number] Use as [facility] [place], 2-08 directed ity of Disposable, 00:00: once daily [place] (RELION PEN 00 to inject Med ical NEEDLES) 32 insulin; Bran ch gauge x E11.65 5/32" Ndle glipiZIDE 0 Yes [id number] 10mg Take 1 [facility] [place] XL 10 mg 24 2-08 tablet by ity of hr tablet 00:00: mouth [place] 00 daily with Medical breakfast. Branch STOP GLIMEPIRID E. magnesium 2023-0 Yes [id number] TAKE 2 U nivers oxide 400 2-08 TABLETS BY ity of mg (241.3 00:00: MOUTH 4 [place] mg 00 TIMES Medical magnesium) DAILY Branch tablet Insulin Yes [id number] Use as [facility] [place], 2-08 directed ity of Disposable, 00:00: once daily [place] (RELION PEN 00 to inject Med ical NEEDLES) 32 insulin; Bran ch gauge x E11.65 5/32" Ndle glipiZIDE 2022-0 Yes [id number] 10mg Take 1 Un [place] XL 10 mg 24 2-08 tablet by ity of hr tablet 00:00: mouth [place] 00 daily with Medical breakfast. Branch STOP GLIMEPIRID E. magnesium 0 Yes [id number] TAKE 2 U nivers oxide 400 2-08 TABLETS BY ity of mg (241.3 00:00: MOUTH 4 [place] mg 00 TIMES Medical magnesium) DAILY Branch tablet Insulin Yes [id number] Use as [facility] [place], 2-08 directed ity of Disposable, 00:00: once daily [place] (RELION PEN 00 to inject Med ical NEEDLES) 32 insulin; Bran ch gauge x E11.65 32" Ndle glipiZIDE 2022-0 Yes [id number] 10mg Take 1 [facility] [place] XL 10 mg 24 2-08 tablet by ity of hr tablet 00:00: mouth [place] 00 daily with Medical breakfast. Branch STOP GLIMEPIRID E. magnesium 0 Yes [id number] TAKE 2 U nivers oxide 400 2-08 TABLETS BY ity of mg (241.3 00:00: MOUTH 4 [place] mg 00 TIMES Medical magnesium) DAILY Branch tablet Insulin 0 Yes [id number] Use as [facility] [place], 2-08 directed ity of Disposable, 00:00: once daily [place] (RELION PEN 00 to inject Med ical NEEDLES) 32 insulin; Bran ch gauge x E11.65 32" Ndle glipiZIDE 2022-0 Yes [id number] 10mg Take 1 [facility] [place] XL 10 mg 24 2-08 tablet by ity of hr tablet 00:00: mouth [place] 00 daily with Medical breakfast. Branch STOP GLIMEPIRID E. magnesium 2022-0 Yes [id number] TAKE 2 U nivers oxide 400 2-08 TABLETS BY ity of mg (241.3 00:00: MOUTH 4 [place] mg 00 TIMES Medical magnesium) DAILY Branch tablet Insulin Yes [id number] Use as [facility] [place], 2-08 directed ity of Disposable, 00:00: once daily [place] (RELION PEN 00 to inject Med ical NEEDLES) 32 insulin; Bran ch gauge x E11.65 " Ndle glipiZIDE Yes [id number] 10mg Take 1 [facility] [place] XL 10 mg 24 2-08 tablet by ity of hr tablet 00:00: mouth [place] 00 daily with Medical breakfast. Branch STOP GLIMEPIRID E. magnesium Yes [id number] TAKE 2 U nivers oxide 400 2-08 TABLETS BY ity of mg (241.3 00:00: MOUTH 4 [place] mg 00 TIMES Medical magnesium) DAILY Branch tablet Insulin Yes [id number] Use as [facility] [place], 2-08 directed ity of Disposable, 00:00: once daily [place] (RELION PEN 00 to inject Med ical NEEDLES) 32 insulin; Bran ch gauge x E11.65 " Ndle glipiZIDE 0 Yes [id number] 10mg Take 1 [facility] [place] XL 10 mg 24 2-08 tablet by ity of hr tablet 00:00: mouth [place] 00 daily with Medical breakfast. Branch STOP GLIMEPIRID E. magnesium Yes [id number] TAKE 2 U nivers oxide 400 2-08 TABLETS BY ity of mg (241.3 00:00: MOUTH 4 [place] mg 00 TIMES Medical magnesium) DAILY Branch tablet Insulin Yes [id number] Use as [facility] [place], 2-08 directed ity of Disposable, 00:00: once daily [place] (RELION PEN 00 to inject Med ical NEEDLES) 32 insulin; Bran ch gauge x E11.65 " Ndle glipiZIDE Yes [id number] 10mg Take 1 [facility] [place] XL 10 mg 24 2-08 tablet by ity of hr tablet 00:00: mouth [place] 00 daily with Medical breakfast. Branch STOP GLIMEPIRID E. magnesium Yes [id number] TAKE 2 U nivers oxide 400 2-08 TABLETS BY ity of mg (241.3 00:00: MOUTH 4 [place] mg 00 TIMES Medical magnesium) DAILY Branch tablet Insulin Yes [id number] Use as [facility] [place], 2-08 directed ity of Disposable, 00:00: once daily [place] (RELION PEN 00 to inject Med ical NEEDLES) 32 insulin; Bran ch gauge x E11.65 5/32" Ndle glipiZIDE 2022-0 Yes [id number] 10mg Take 1 [facility] [place] XL 10 mg 24 2-08 tablet by ity of hr tablet 00:00: mouth [place] 00 daily with Medical breakfast. Branch STOP GLIMEPIRID E. magnesium 0 Yes [id number] TAKE 2 U nivers oxide 400 2-08 TABLETS BY ity of mg (241.3 00:00: MOUTH 4 [place] mg 00 TIMES Medical magnesium) DAILY Branch tablet Insulin Yes [id number] Use as [facility] [place], 2-08 directed ity of Disposable, 00:00: once daily [place] (RELION PEN 00 to inject Med ical NEEDLES) 32 insulin; Bran ch gauge x E11.65 5/32" Ndle glipiZIDE 2022-0 Yes [id number] 10mg Take 1 [facility] [place] XL 10 mg 24 2-08 tablet by ity of hr tablet 00:00: mouth [place] 00 daily with Medical breakfast. Branch STOP GLIMEPIRID E. magnesium 0 Yes [id number] TAKE 2 U nivers oxide 400 2-08 TABLETS BY ity of mg (241.3 00:00: MOUTH 4 [place] mg 00 TIMES Medical magnesium) DAILY Branch tablet Insulin Yes [id number] Use as [facility] [place], 2-08 directed ity of Disposable, 00:00: once daily [place] (RELION PEN 00 to inject Med ical NEEDLES) 32 insulin; Bran ch gauge x E11.65 5/32" Ndle glipiZIDE 2022-0 Yes [id number] 10mg Take 1 [facility] [place] XL 10 mg 24 2-08 tablet by ity of hr tablet 00:00: mouth [place] 00 daily with Medical breakfast. Branch STOP GLIMEPIRID E. Insulin Yes [id number] Use as [facility] [place], 2-08 directed ity of Disposable, 00:00: once daily [place] (RELION PEN 00 to inject Med ical NEEDLES) 32 insulin; Bran ch gauge x E11.65 5/32" Ndle glipiZIDE 2022-0 Yes [id number] 10mg Take 1 [facility] [place] XL 10 mg 24 2-08 tablet by ity of hr tablet 00:00: mouth [place] 00 daily with Medical breakfast. Branch STOP GLIMEPIRID E. Insulin 2022-0 Yes [id number] Use as [facility] [place], 2-08 directed ity of Disposable, 00:00: once daily [place] (RELION PEN 00 to inject Med ical NEEDLES) 32 insulin; Bran ch gauge x E11.65 5/32" Ndle glipiZIDE 2022-0 Yes [id number] 10mg Take 1 [facility] [place] XL 10 mg 24 2-08 tablet by ity of hr tablet 00:00: mouth [place] 00 daily with Medical breakfast. Branch STOP GLIMEPIRID E. Insulin 2022-0 Yes [id number] Use as [facility] [place], 2-08 directed ity of Disposable, 00:00: once daily [place] (RELION PEN 00 to inject Med ical NEEDLES) 32 insulin; Bran ch gauge x E11.65 5/32" Ndle glipiZIDE 2022-0 Yes [id number] 10mg Take 1 [facility] XL 10 mg 24 2-08 tablet by ity of hr tablet 00:00: mouth [place] 00 daily with Medical breakfast. Branch STOP GLIMEPIRID E. Insulin 2022-0 Yes [id number] Use as [facility] [place], 2-08 directed ity of Disposable, 00:00: once daily [place] (RELION PEN 00 to inject Med ical NEEDLES) 32 insulin; Bran ch gauge x E11.65 5/32" Ndle glipiZIDE 2022-0 Yes [id number] 10mg Take 1 [facility] XL 10 mg 24 2-08 tablet by ity of hr tablet 00:00: mouth [place] 00 daily with Medical breakfast. Branch STOP GLIMEPIRID E. Insulin 2022-0 Yes [id number] Use as [facility] [place], 2-08 directed ity of Disposable, 00:00: once daily [place] (RELION PEN 00 to inject Med ical NEEDLES) 32 insulin; Bran ch gauge x E11.65 5/32" Ndle glipiZIDE 2022-0 Yes [id number] 10mg Take 1 Un [facility] XL 10 mg 24 2-08 tablet by ity of hr tablet 00:00: mouth [place] 00 daily with Medical breakfast. Branch STOP GLIMEPIRID E. Insulin 2022-0 Yes [id number] Use as [facility] [place], 2-08 directed ity of Disposable, 00:00: once daily [place] (RELION PEN 00 to inject Med ical NEEDLES) 32 insulin; Bran ch gauge x E11.65 5/32" Ndle glipiZIDE 2022-0 Yes [id number] 10mg Take 1 Un [facility] XL 10 mg 24 2-08 tablet by ity of hr tablet 00:00: mouth [place] 00 daily with Medical breakfast. Branch STOP GLIMEPIRID E. Insulin 2022-0 Yes [id number] Use as [facility] [place], 2-08 directed ity of Disposable, 00:00: once daily [place] (RELION PEN 00 to inject Med ical NEEDLES) 32 insulin; Bran ch gauge x E11.65 5/32" Ndle glipiZIDE 2022-0 Yes [id number] 10mg Take 1 Un [facility] XL 10 mg 24 2-08 tablet by ity of hr tablet 00:00: mouth [place] 00 daily with Medical breakfast. Branch STOP GLIMEPIRID E. Insulin 2022-0 Yes [id number] Use as [facility] [place], 2-08 directed ity of Disposable, 00:00: once daily [place] (RELION PEN 00 to inject Med ical NEEDLES) 32 insulin; Bran ch gauge x E11.65 5/32" Ndle glipiZIDE 2022-0 Yes [id number] 10mg Take 1 [facility] XL 10 mg 24 2-08 tablet by ity of hr tablet 00:00: mouth [place] 00 daily with Medical breakfast. Branch STOP GLIMEPIRID E. Insulin 2022-0 Yes [id number] Use as [facility] [place], 2-08 directed ity of Disposable, 00:00: once daily [place] (RELION PEN 00 to inject Med ical NEEDLES) 32 insulin; Bran ch gauge x E11.65 5/32" Ndle glipiZIDE 2022-0 Yes [id number] 10mg Take 1 [facility] XL 10 mg 24 2-08 tablet by ity of hr tablet 00:00: mouth [place] 00 daily with Medical breakfast. Branch STOP GLIMEPIRID E. Insulin 2022-0 Yes [id number] Use as [facility] [place], 2-08 directed ity of Disposable, 00:00: once daily [place] (RELION PEN 00 to inject Med ical NEEDLES) 32 insulin; Bran ch gauge x E11.65 5/32" Ndle glipiZIDE 2022-0 Yes [id number] 10mg Take 1 [facility] XL 10 mg 24 2-08 tablet by ity of hr tablet 00:00: mouth [place] 00 daily with Medical breakfast. Branch STOP GLIMEPIRID E. Insulin 2022-0 Yes [id number] Use as [facility] [place], 2-08 directed ity of Disposable, 00:00: once daily [place] (RELION PEN 00 to inject Med ical NEEDLES) 32 insulin; Bran ch gauge x E11.65 5/32" Ndle glipiZIDE 2022-0 Yes [id number] 10mg Take 1 [facility] XL 10 mg 24 2-08 tablet by ity of hr tablet 00:00: mouth [place] 00 daily with Medical breakfast. Branch STOP GLIMEPIRID E. Insulin 0 Yes [id number] Use as [facility] [place], 2-08 directed ity of Disposable, 00:00: once daily [place] (RELION PEN 00 to inject Med ical NEEDLES) 32 insulin; Bran ch gauge x E11.65 5/32" Ndle glipiZIDE 2022-0 Yes [id number] 10mg Take 1 [facility] XL 10 mg 24 2-08 tablet by ity of hr tablet 00:00: mouth [place] 00 daily with Medical breakfast. Branch STOP GLIMEPIRID E. Insulin 2022-0 Yes [id number] Use as [facility] [place], 2-08 directed ity of Disposable, 00:00: once daily [place] (RELION PEN 00 to inject Med ical NEEDLES) 32 insulin; Bran ch gauge x E11.65 5/32" Ndle glipiZIDE 2022-0 Yes [id number] 10mg Take 1 [facility] XL 10 mg 24 2-08 tablet by ity of hr tablet 00:00: mouth [place] 00 daily with Medical breakfast. Branch STOP GLIMEPIRID E. Insulin 2022-0 Yes [id number] Use as [facility] [place], 2-08 directed ity of Disposable, 00:00: once daily [place] (RELION PEN 00 to inject Med ical NEEDLES) 32 insulin; Bran ch gauge x E11.65 5/32" Ndle glipiZIDE 2022-0 Yes [id number] 10mg Take 1 [facility] XL 10 mg 24 2-08 tablet by ity of hr tablet 00:00: mouth [place] 00 daily with Medical breakfast. Branch STOP GLIMEPIRID E. Insulin 2022-0 Yes [id number] Use as [facility] [place], 2-08 directed ity of Disposable, 00:00: once daily [place] (RELION PEN 00 to inject Med ical NEEDLES) 32 insulin; Bran ch gauge x E11.65 5/32" Ndle glipiZIDE 2022-0 Yes [id number] 10mg Take 1 [facility] XL 10 mg 24 2-08 tablet by ity of hr tablet 00:00: mouth [place] 00 daily with Medical breakfast. Branch STOP GLIMEPIRID E. Insulin 2022-0 Yes [id number] Use as [facility] [place], 2-08 directed ity of Disposable, 00:00: once daily [place] (RELION PEN 00 to inject Med ical NEEDLES) 32 insulin; Bran ch gauge x E11.65 5/32" Ndle glipiZIDE 2022-0 Yes [id number] 10mg Take 1 [facility] XL 10 mg 24 2-08 tablet by ity of hr tablet 00:00: mouth [place] 00 daily with Medical breakfast. Branch STOP GLIMEPIRID E. Insulin 2022-0 Yes [id number] Use as [facility] [place], 2-08 directed ity of Disposable, 00:00: once daily [place] (RELION PEN 00 to inject Med ical NEEDLES) 32 insulin; Bran ch gauge x E11.65 5/32" Ndle glipiZIDE 2022-0 Yes [id number] 10mg Take 1 [facility] XL 10 mg 24 2-08 tablet by ity of hr tablet 00:00: mouth [place] 00 daily with Medical breakfast. Branch STOP GLIMEPIRID E. Insulin 2022-0 Yes [id number] Use as [facility] [place], 2-08 directed ity of Disposable, 00:00: once daily [place] (RELION PEN 00 to inject Med ical NEEDLES) 32 insulin; Bran ch gauge x E11.65 5/32" Ndle glipiZIDE 2022-0 Yes [id number] 10mg Take 1 [facility] XL 10 mg 24 2-08 tablet by ity of hr tablet 00:00: mouth [place] 00 daily with Medical breakfast. Branch STOP GLIMEPIRID E. Insulin 2022-0 Yes [id number] Use as [facility] [place], 2-08 directed ity of Disposable, 00:00: once daily [place] (RELION PEN 00 to inject Med ical NEEDLES) 32 insulin; Bran ch gauge x E11.65 5/32" Ndle glipiZIDE 2022-0 Yes [id number] 10mg Take 1 [facility] XL 10 mg 24 2-08 tablet by ity of hr tablet 00:00: mouth [place] 00 daily with Medical breakfast. Branch STOP GLIMEPIRID E. magnesium 2022-0 2022- No [id number] TAKE 2 [facility] oxide 400 2-08 05-04 TABLETS BY ity of mg (241.3 00:00: 00:00 MOUTH 4 [place] mg 00 :00 TIMES Medical magnesium) DAILY Branch tablet lancets 33 2022-0 Yes [id number] Use as [facility] gauge Misc 2-07 directed. ity of 00:00: .. 00 Check once Medical daily Branch lancets 33 2022-0 Yes [id number] Use as [facility] gauge Misc 2-07 directed. ity of 00:00: . 00 Check once Medical daily Branch lancets 33 2022-0 Yes [id number] Use as [facility] gauge Misc 2-07 directed. ity of 00:00: . [place] 00 Check once Medical daily Branch lancets 33 2022-0 Yes [id number] Use as [facility] gauge Misc 2-07 directed. ity of 00:00: .. [place] 00 Check once Medical daily Branch lancets 33 2022-0 Yes [id number] Use as [facility] gauge Misc 2-07 directed. ity of 00:00: . [place] 00 Check once Medical daily Branch lancets 33 3-0 Yes [id number] Use as [facility] gauge Misc 2-07 directed. ity of 00:00: . [place] 00 Check once Medical daily Branch lancets 33 2022-0 Yes [id number] Use as [facility] gauge Misc 2-07 directed. ity of 00:00: . [place] 00 Check once Medical daily Branch lancets 33 3-0 Yes [id number] Use as [facility] gauge Misc 2-07 directed. ity of 00:00: .. [place] 00 Check once Medical daily Branch lancets 33 3-0 Yes [id number] Use as [facility] gauge Misc 2-07 directed. ity of 00:00: .21. [place] 00 Check once Medical daily Branch lancets 33 3-0 Yes [id number] Use as [facility] gauge Misc 2-07 directed. ity of 00:00: E11.. [place] 00 Check once Medical daily Branch lancets 33 2023-0 Yes [id number] Use as [facility] gauge Misc 2-07 directed. ity of 00:00: .. [place] 00 Check once Medical daily Branch lancets 33 2023-0 Yes [id number] Use as [facility] gauge Misc 2-07 directed. ity of 00:00: .. [place] 00 Check once Medical daily Branch lancets 33 2023-0 Yes [id number] Use as [facility] gauge Misc 2-07 directed. ity of 00:00: .. [place] 00 Check once Medical daily Branch lancets 33 2023-0 Yes [id number] Use as [facility] gauge Misc 2-07 directed. ity of 00:00: . [place] 00 Check once Medical daily Branch lancets 33 2023-0 Yes [id number] Use as [facility] gauge Misc 2-07 directed. ity of 00:00: . [place] 00 Check once Medical daily Branch lancets 33 2023-0 Yes [id number] Use as [facility] gauge Misc 2-07 directed. ity of 00:00: . [place] 00 Check once Medical daily Branch lancets 33 2023-0 Yes [id number] Use as [facility] gauge Misc 2-07 directed. ity of 00:: . [place] 00 Check once Medical daily Branch lancets 33 2023-0 Yes [id number] Use as [facility] gauge Misc 2-07 directed. ity of 00:00: .. [place] 00 Check once Medical daily Branch lancets 33 2023-0 Yes [id number] Use as [facility] gauge Misc 2-07 directed. ity of 00:00: .. [place] 00 Check once Medical daily Branch lancets 33 2023-0 Yes [id number] Use as [facility] gauge Misc 2-07 directed. ity of 00:00: . [place] 00 Check once Medical daily Branch lancets 33 2023-0 Yes [id number] Use as [facility] gauge Misc 2-07 directed. ity of 00:00: . [place] 00 Check once Medical daily Branch lancets 33 2023-0 Yes [id number] Use as [facility] gauge Misc 2-07 directed. ity of 00:00: E11.21. [place] 00 Check once Medical daily Branch lancets 33 2023-0 Yes [id number] Use as [facility] gauge Misc 2-07 directed. ity of 00:00: E11.21. [place] 00 Check once Medical daily Branch lancets 33 2023-0 Yes [id number] Use as [facility] gauge Misc 2-07 directed. ity of 00:00: E11.21. [place] 00 Check once Medical daily Branch lancets 33 2023-0 Yes [id number] Use as [facility] gauge Misc 2-07 directed. ity of 00:00: E11.21. [place] 00 Check once Medical daily Branch lancets 33 2023-0 Yes [id number] Use as [facility] gauge Misc 2-07 directed. ity of 00:00: E11.21. [place] 00 Check once Medical daily Branch lancets 33 2023-0 Yes [id number] Use as [facility] gauge Misc 2-07 directed. ity of 00:00: E11.21. [place] 00 Check once Medical daily Branch lancets 33 2023-0 Yes [id number] Use as [facility] gauge Misc 2-07 directed. ity of 00:00: E11.21. [place] 00 Check once Medical daily Branch lancets 33 2023-0 Yes [id number] Use as [facility] gauge Misc 2-07 directed. ity of 00:00: E11.21. [place] 00 Check once Medical daily Branch lancets 33 2023-0 Yes [id number] Use as [facility] gauge Misc 2-07 directed. ity of 00:00: E11.21. [place] 00 Check once Medical daily Branch lancets 33 2023-0 Yes [id number] Use as [facility] gauge Misc 2-07 directed. ity of 00:00: E11.21. [place] 00 Check once Medical daily Branch lancets 33 2023-0 Yes [id number] Use as [facility] gauge Misc 2-07 directed. ity of 00:00: E11.21. [place] 00 Check once Medical daily Branch lancets 33 2023-0 Yes [id number] Use as [facility] gauge Misc 2-07 directed. ity of 00:00: E11.21. [place] 00 Check once Medical daily Branch lancets 33 2023-0 Yes [id number] Use as [facility] gauge Misc 2-07 directed. ity of 00:00: E11.21. [place] 00 Check once Medical daily Branch lancets 33 2023-0 Yes [id number] Use as [facility] gauge Misc 2-07 directed. ity of 00:00: E11.21. [place] 00 Check once Medical daily Branch lancets 33 2023-0 Yes [id number] Use as [facility] gauge Misc 2-07 directed. ity of 00:00: E11.21. [place] 00 Check once Medical daily Branch lancets 33 2023-0 Yes [id number] Use as [facility] gauge Misc 2-07 directed. ity of 00:00: E11.21. [place] 00 Check once Medical daily Branch lancets 33 2023-0 Yes [id number] Use as [facility] gauge Misc 2-07 directed. ity of 00:00: E11.21. [place] 00 Check once Medical daily Branch lancets 33 2023-0 Yes [id number] Use as [facility] gauge Misc 2-07 directed. ity of 00:00: E11.21. [place] 00 Check once Medical daily Branch lancets 33 2023-0 Yes [id number] Use as [facility] gauge Misc 2-07 directed. ity of 00:00: E11.. [place] 00 Check once Medical daily Branch lancets 33 2023-0 Yes [id number] Use as [facility] gauge Misc 2-07 directed. ity of 00:00: E11.. [place] 00 Check once Medical daily Branch lancets 33 2023-0 Yes [id number] Use as [facility] gauge Misc 2-07 directed. ity of 00:00: E11.21. [place] 00 Check once Medical daily Branch lancets 33 2023-0 Yes [id number] Use as [facility] gauge Misc 2-07 directed. ity of 00:00: E11.21. [place] 00 Check once Medical daily Branch lancets 33 2023-0 Yes [id number] Use as [facility] gauge Misc 2-07 directed. ity of 00:00: E11.21. [place] 00 Check once Medical daily Branch lancets 33 2023-0 Yes [id number] Use as [facility] gauge Misc 2-07 directed. ity of 00:00: E11.21. [place] 00 Check once Medical daily Branch lancets 33 2023-0 Yes [id number] Use as [facility] gauge Misc 2-07 directed. ity of 00:00: E11.21. [place] 00 Check once Medical daily Branch lancets 33 2023-0 Yes [id number] Use as [facility] gauge Misc 2-07 directed. ity of 00:00: .. 00 Check once Medical daily Branch lancets 33 2023-0 Yes [id number] Use as [facility] gauge Misc 2-07 directed. ity of 00:00: . [place] 00 Check once Medical daily Branch lancets 33 2023-0 Yes [id number] Use as [facility] gauge Misc 2-07 directed. ity of 00:00: . 00 Check once Medical daily Branch lancets 33 2023-0 Yes [id number] Use as [facility] gauge Misc 2-07 directed. ity of 00:00: . 00 Check once Medical daily Branch lancets 33 2023-0 Yes [id number] Use as [facility] gauge Misc 2-07 directed. ity of 00:00: . 00 Check once Medical daily Branch lancets 33 2023-0 Yes [id number] Use as [facility] gauge Misc 2-07 directed. ity of 00:: . 00 Check once Medical daily Branch lancets 33 2023-0 Yes [id number] Use as [facility] gauge Misc 2-07 directed. ity of 00:00: . 00 Check once Medical daily Branch lancets 33 2023-0 Yes [id number] Use as [facility] gauge Misc 2-07 directed. ity of 00:00: . 00 Check once Medical daily Branch lancets 33 2023-0 Yes [id number] Use as [facility] gauge Misc 2-07 directed. ity of 00:: . 00 Check once Medical daily Branch lancets 33 2023-0 Yes [id number] Use as [facility] gauge Misc 2-07 directed. ity of 00:00: . 00 Check once Medical daily Branch metformin 2022-0 Yes [id number] 1000mg Take 2 [facility] ER 500 mg 2-03 tablets by ity of 24 hr 00:00: mouth in [place] tablet 00 the Medical morning Branch and 2 tablets in the evening. Take with meals. rosuvastati 2022-0 Yes [id number] TAKE 1 [facility] n 20 mg 2-03 TABLET AT ity of tablet 00:00: BEDTIME, [place] 00 STOP Medical TAKING Branch ATORVASTAT IN metformin 2023-0 Yes [id number] 1000mg Take 2 [facility] ER 500 mg 2-03 tablets by ity of 24 hr 00:00: mouth in [place] tablet 00 the Medical morning Branch and 2 tablets in the evening. Take with meals. rosuvastati Yes [id number] TAKE 1 [facility] n 20 mg 2-03 TABLET AT ity of tablet 00:00: BEDTIME, [place] 00 STOP Medical TAKING Branch ATORVASTAT IN metformin Yes [id number] 1000mg Take 2 [facility] ER 500 mg 2-03 tablets by ity of 24 hr 00:00: mouth in [place] tablet 00 the Medical morning Branch and 2 tablets in the evening. Take with meals. rosuvastati Yes [id number] TAKE 1 [facility] n 20 mg 2-03 TABLET AT ity of tablet 00:00: BEDTIME, [place] [address] STOP Medical TAKING Branch ATORVASTAT IN metformin Yes [id number] 1000mg Take 2 [facility] ER 500 mg 2-03 tablets by ity of 24 hr 00:00: mouth in [place] tablet 00 the Medical morning Branch and 2 tablets in the evening. Take with meals. rosuvastati Yes [id number] TAKE 1 [facility] n 20 mg 2-03 TABLET AT ity of tablet 00:00: BEDTIME, [place] 00 STOP Medical TAKING Branch ATORVASTAT IN metformin Yes [id number] 1000mg Take 2 [facility] ER 500 mg 2-03 tablets by ity of 24 hr 00:00: mouth in [place] tablet 00 the Medical morning Branch and 2 tablets in the evening. Take with meals. rosuvastati Yes [id number] TAKE 1 [facility] n 20 mg 2-03 TABLET AT ity of tablet 00:00: BEDTIME, [place] [address] STOP Medical TAKING Branch ATORVASTAT IN metformin Yes [id number] 1000mg Take 2 [facility] ER 500 mg 2-03 tablets by ity of 24 hr 00:00: mouth in [place] tablet 00 the Medical morning Branch and 2 tablets in the evening. Take with meals. rosuvastati Yes [id number] TAKE 1 [facility] n 20 mg 2-03 TABLET AT ity of tablet 00:00: BEDTIME, [place] [address] STOP Medical TAKING Branch ATORVASTAT IN metformin Yes [id number] 1000mg Take 2 [facility] ER 500 mg 2-03 tablets by ity of 24 hr 00:00: mouth in [place] tablet 00 the Medical morning Branch and 2 tablets in the evening. Take with meals. rosuvastati 0 Yes [id number] TAKE 1 [facility] n 20 mg 2-03 TABLET AT ity of tablet 00:00: BEDTIME, [place] 00 STOP Medical TAKING Branch ATORVASTAT IN metformin 0 Yes [id number] 1000mg Take 2 [facility] ER 500 mg 2-03 tablets by ity of 24 hr 00:00: mouth in [place] tablet 00 the Medical morning Branch and 2 tablets in the evening. Take with meals. rosuvastati 0 Yes [id number] TAKE 1 [facility] n 20 mg 2-03 TABLET AT ity of tablet 00:00: BEDTIME, [place] [address] STOP Medical TAKING Branch ATORVASTAT IN metformin 0 Yes [id number] 1000mg Take 2 [facility] ER 500 mg 2-03 tablets by ity of 24 hr 00:00: mouth in [place] tablet 00 the Medical morning Branch and 2 tablets in the evening. Take with meals. rosuvastati 0 Yes [id number] TAKE 1 [facility] n 20 mg 2-03 TABLET AT ity of tablet 00:00: BEDTIME, [place] [address] STOP Medical TAKING Branch ATORVASTAT IN metformin 0 Yes [id number] 1000mg Take 2 [facility] ER 500 mg 2-03 tablets by ity of 24 hr 00:00: mouth in [place] tablet 00 the Medical morning Branch and 2 tablets in the evening. Take with meals. rosuvastati 0 Yes [id number] TAKE 1 [facility] n 20 mg 2-03 TABLET AT ity of tablet 00:00: BEDTIME, [place] [address] STOP Medical TAKING Branch ATORVASTAT IN metformin 0 Yes [id number] 1000mg Take 2 [facility] ER 500 mg 2-03 tablets by ity of 24 hr 00:00: mouth in [place] tablet 00 the Medical morning Branch and 2 tablets in the evening. Take with meals. rosuvastati 2022-0 Yes [id number] TAKE 1 [facility] n 20 mg 2-03 TABLET AT ity of tablet 00:00: BEDTIME, [place] [address] STOP Medical TAKING Branch ATORVASTAT IN metformin 0 Yes [id number] 1000mg Take 2 [facility] ER 500 mg 2-03 tablets by ity of 24 hr 00:00: mouth in [place] tablet 00 the Medical morning Branch and 2 tablets in the evening. Take with meals. rosuvastati 0 Yes [id number] TAKE 1 [facility] n 20 mg 2-03 TABLET AT ity of tablet 00:00: BEDTIME, [place] 00 STOP Medical TAKING Branch ATORVASTAT IN metformin Yes [id number] 1000mg Take 2 [facility] ER 500 mg 2-03 tablets by ity of 24 hr 00:00: mouth in [place] tablet 00 the Medical morning Branch and 2 tablets in the evening. Take with meals. rosuvastati Yes [id number] TAKE 1 [facility] n 20 mg 2-03 TABLET AT ity of tablet 00:00: BEDTIME, [place] 00 STOP Medical TAKING Branch ATORVASTAT IN metformin Yes [id number] 1000mg Take 2 [facility] ER 500 mg 2-03 tablets by ity of 24 hr 00:00: mouth in [place] tablet 00 the Medical morning Branch and 2 tablets in the evening. Take with meals. rosuvastati Yes [id number] TAKE 1 [facility] n 20 mg 2-03 TABLET AT ity of tablet 00:00: BEDTIME, [place] 00 STOP Medical TAKING Branch ATORVASTAT IN metformin Yes [id number] 1000mg Take 2 [facility] ER 500 mg 2-03 tablets by ity of 24 hr 00:00: mouth in [place] tablet 00 the Medical morning Branch and 2 tablets in the evening. Take with meals. rosuvastati Yes [id number] TAKE 1 [facility] n 20 mg 2-03 TABLET AT ity of tablet 00:00: BEDTIME, [place] 00 STOP Medical TAKING Branch ATORVASTAT IN metformin Yes [id number] 1000mg Take 2 [facility] ER 500 mg 2-03 tablets by ity of 24 hr 00:00: mouth in [place] tablet 00 the Medical morning Branch and 2 tablets in the evening. Take with meals. rosuvastati Yes [id number] TAKE 1 [facility] n 20 mg 2-03 TABLET AT ity of tablet 00:00: BEDTIME, [place] [address] STOP Medical TAKING Branch ATORVASTAT IN metformin Yes [id number] 1000mg Take 2 [facility] ER 500 mg 2-03 tablets by ity of 24 hr 00:00: mouth in [place] tablet 00 the Medical morning Branch and 2 tablets in the evening. Take with meals. rosuvastati 0 Yes [id number] TAKE 1 [facility] n 20 mg 2-03 TABLET AT ity of tablet 00:00: BEDTIME, [place] 00 STOP Medical TAKING Branch ATORVASTAT IN metformin Yes [id number] 1000mg Take 2 [facility] ER 500 mg 2-03 tablets by ity of 24 hr 00:00: mouth in [place] tablet 00 the Medical morning Branch and 2 tablets in the evening. Take with meals. rosuvastati Yes [id number] TAKE 1 [facility] n 20 mg 2-03 TABLET AT ity of tablet 00:00: BEDTIME, [place] 00 STOP Medical TAKING Branch ATORVASTAT IN metformin Yes [id number] 1000mg Take 2 [facility] ER 500 mg 2-03 tablets by ity of 24 hr 00:00: mouth in [place] tablet 00 the Medical morning Branch and 2 tablets in the evening. Take with meals. rosuvastati Yes [id number] TAKE 1 [facility] n 20 mg 2-03 TABLET AT ity of tablet 00:00: BEDTIME, [place] 00 STOP Medical TAKING Branch ATORVASTAT IN metformin Yes [id number] 1000mg Take 2 [facility] ER 500 mg 2-03 tablets by ity of 24 hr 00:00: mouth in [place] tablet 00 the Medical morning Branch and 2 tablets in the evening. Take with meals. rosuvastati Yes [id number] TAKE 1 [facility] n 20 mg 2-03 TABLET AT ity of tablet 00:00: BEDTIME, [place] 00 STOP Medical TAKING Branch ATORVASTAT IN metformin Yes [id number] 1000mg Take 2 [facility] ER 500 mg 2-03 tablets by ity of 24 hr 00:00: mouth in [place] tablet 00 the Medical morning Branch and 2 tablets in the evening. Take with meals. rosuvastati Yes [id number] TAKE 1 [facility] n 20 mg 2-03 TABLET AT ity of tablet 00:00: BEDTIME, [place] 00 STOP Medical TAKING Branch ATORVASTAT IN metformin Yes [id number] 1000mg Take 2 [facility] ER 500 mg 2-03 tablets by ity of 24 hr 00:00: mouth in [place] tablet 00 the Medical morning Branch and 2 tablets in the evening. Take with meals. rosuvastati Yes [id number] TAKE 1 [facility] n 20 mg 2-03 TABLET AT ity of tablet 00:00: BEDTIME, [place] 00 STOP Medical TAKING Branch ATORVASTAT IN metformin 0 Yes [id number] 1000mg Take 2 [facility] ER 500 mg 2-03 tablets by ity of 24 hr 00:00: mouth in [place] tablet 00 the Medical morning Branch and 2 tablets in the evening. Take with meals. rosuvastati 0 Yes [id number] TAKE 1 [facility] n 20 mg 2-03 TABLET AT ity of tablet 00:00: BEDTIME, [place] 00 STOP Medical TAKING Branch ATORVASTAT IN metformin 0 Yes [id number] 1000mg Take 2 [facility] ER 500 mg 2-03 tablets by ity of 24 hr 00:00: mouth in [place] tablet 00 the Medical morning Branch and 2 tablets in the evening. Take with meals. rosuvastati 0 Yes [id number] TAKE 1 [facility] n 20 mg 2-03 TABLET AT ity of tablet 00:00: BEDTIME, [place] [address] STOP Medical TAKING Branch ATORVASTAT IN metformin Yes [id number] 1000mg Take 2 [facility] ER 500 mg 2-03 tablets by ity of 24 hr 00:00: mouth in [place] tablet 00 the Medical morning Branch and 2 tablets in the evening. Take with meals. rosuvastati 0 Yes [id number] TAKE 1 [facility] n 20 mg 2-03 TABLET AT ity of tablet 00:00: BEDTIME, [place] 00 STOP Medical TAKING Branch ATORVASTAT IN metformin 0 Yes [id number] 1000mg Take 2 [facility] ER 500 mg 2-03 tablets by ity of 24 hr 00:00: mouth in [place] tablet 00 the Medical morning Branch and 2 tablets in the evening. Take with meals. rosuvastati 0 Yes [id number] TAKE 1 [facility] n 20 mg 2-03 TABLET AT ity of tablet 00:00: BEDTIME, [place] 00 STOP Medical TAKING Branch ATORVASTAT IN metformin 0 Yes [id number] 1000mg Take 2 [facility] ER 500 mg 2-03 tablets by ity of 24 hr 00:00: mouth in [place] tablet 00 the Medical morning Branch and 2 tablets in the evening. Take with meals. rosuvastati 0 Yes [id number] TAKE 1 [facility] n 20 mg 2-03 TABLET AT ity of tablet 00:00: BEDTIME, [place] [address] STOP Medical TAKING Branch ATORVASTAT IN metformin 0 Yes [id number] 1000mg Take 2 [facility] ER 500 mg 2-03 tablets by ity of 24 hr 00:00: mouth in [place] tablet 00 the Medical morning Branch and 2 tablets in the evening. Take with meals. rosuvastati Yes [id number] TAKE 1 [facility] n 20 mg 2-03 TABLET AT ity of tablet 00:00: BEDTIME, [place] 00 STOP Medical TAKING Branch ATORVASTAT IN metformin Yes [id number] 1000mg Take 2 [facility] ER 500 mg 2-03 tablets by ity of 24 hr 00:00: mouth in [place] tablet 00 the Medical morning Branch and 2 tablets in the evening. Take with meals. rosuvastati Yes [id number] TAKE 1 [facility] n 20 mg 2-03 TABLET AT ity of tablet 00:00: BEDTIME, [place] 00 STOP Medical TAKING Branch ATORVASTAT IN metformin Yes [id number] 1000mg Take 2 [facility] ER 500 mg 2-03 tablets by ity of 24 hr 00:00: mouth in [place] tablet 00 the Medical morning Branch and 2 tablets in the evening. Take with meals. rosuvastati Yes [id number] TAKE 1 [facility] n 20 mg 2-03 TABLET AT ity of tablet 00:00: BEDTIME, [place] 00 STOP Medical TAKING Branch ATORVASTAT IN metformin Yes [id number] 1000mg Take 2 [facility] ER 500 mg 2-03 tablets by ity of 24 hr 00:00: mouth in [place] tablet 00 the Medical morning Branch and 2 tablets in the evening. Take with meals. rosuvastati Yes [id number] TAKE 1 [facility] n 20 mg 2-03 TABLET AT ity of tablet 00:00: BEDTIME, [place] 00 STOP Medical TAKING Branch ATORVASTAT IN metformin Yes [id number] 1000mg Take 2 [facility] ER 500 mg 2-03 tablets by ity of 24 hr 00:00: mouth in [place] tablet 00 the Medical morning Branch and 2 tablets in the evening. Take with meals. rosuvastati Yes [id number] TAKE 1 [facility] n 20 mg 2-03 TABLET AT ity of tablet 00:00: BEDTIME, [place] 00 STOP Medical TAKING Branch ATORVASTAT IN metformin Yes [id number] 1000mg Take 2 [facility] ER 500 mg 2-03 tablets by ity of 24 hr 00:00: mouth in [place] tablet 00 the Medical morning Branch and 2 tablets in the evening. Take with meals. rosuvastati 0 Yes [id number] TAKE 1 [facility] n 20 mg 2-03 TABLET AT ity of tablet 00:00: BEDTIME, [place] [address] STOP Medical TAKING Branch ATORVASTAT IN metformin 0 Yes [id number] 1000mg Take 2 [facility] ER 500 mg 2-03 tablets by ity of 24 hr 00:00: mouth in [place] tablet 00 the Medical morning Branch and 2 tablets in the evening. Take with meals. rosuvastati 0 Yes [id number] TAKE 1 [facility] n 20 mg 2-03 TABLET AT ity of tablet 00:00: BEDTIME, [place] [address] STOP Medical TAKING Branch ATORVASTAT IN metformin 0 Yes [id number] 1000mg Take 2 [facility] ER 500 mg 2-03 tablets by ity of 24 hr 00:00: mouth in [place] tablet 00 the Medical morning Branch and 2 tablets in the evening. Take with meals. rosuvastati 0 Yes [id number] TAKE 1 [facility] n 20 mg 2-03 TABLET AT ity of tablet 00:00: BEDTIME, [place] [place] [address] STOP Medical TAKING Branch ATORVASTAT IN metformin 0 Yes [id number] 1000mg Take 2 [facility] 500 mg 2-03 tablets by [facility] of 24 hr 00:00: mouth in [place] tablet 00 the Medical morning Branch and 2 tablets in the evening. Take with meals. rosuvastati 2022-0 Yes [id number] TAKE 1 [facility] n 20 mg 2-03 TABLET AT ity of tablet 00:00: BEDTIME, [place] [address] STOP Medical TAKING Branch ATORVASTAT IN metformin 0 Yes [id number] 1000mg Take 2 [facility] ER 500 mg 2-03 tablets by ity of 24 hr 00:00: mouth in [place] tablet 00 the Medical morning Branch and 2 tablets in the evening. Take with meals. rosuvastati 2022-0 Yes [id number] TAKE 1 [facility] n 20 mg 2-03 TABLET AT ity of tablet 00:00: BEDTIME, [place] [address] STOP Medical TAKING Branch ATORVASTAT IN metformin 0 Yes [id number] 1000mg Take 2 [facility] ER 500 mg 2-03 tablets by ity of 24 hr 00:00: mouth in [place] tablet 00 the Medical morning Branch and 2 tablets in the evening. Take with meals. rosuvastati Yes [id number] TAKE 1 [facility] n 20 mg 2-03 TABLET AT ity of tablet 00:00: BEDTIME, [place] 00 STOP Medical TAKING Branch ATORVASTAT IN metformin Yes [id number] 1000mg Take 2 [facility] ER 500 mg 2-03 tablets by ity of 24 hr 00:00: mouth in [place] tablet 00 the Medical morning Branch and 2 tablets in the evening. Take with meals. rosuvastati 0 Yes [id number] TAKE 1 [facility] n 20 mg 2-03 TABLET AT ity of tablet 00:00: BEDTIME, [place] 00 STOP Medical TAKING Branch ATORVASTAT IN metformin Yes [id number] 1000mg Take 2 [facility] ER 500 mg 2-03 tablets by ity of 24 hr 00:00: mouth in [place] tablet 00 the Medical morning Branch and 2 tablets in the evening. Take with meals. rosuvastati Yes [id number] TAKE 1 [facility] n 20 mg 2-03 TABLET AT ity of tablet 00:00: BEDTIME, [place] 00 STOP Medical TAKING Branch ATORVASTAT IN metformin Yes [id number] 1000mg Take 2 [facility] ER 500 mg 2-03 tablets by it[facility] of 24 hr 00:00: mouth in [place] tablet 00 the Medical morning Branch and 2 tablets in the evening. Take with meals. rosuvastati Yes [id number] TAKE 1 [facility] n 20 mg 2-03 TABLET AT ity of tablet 00:00: BEDTIME, [place] 00 STOP Medical TAKING Branch ATORVASTAT IN metformin Yes [id number] 1000mg Take 2 [facility] ER 500 mg 2-03 tablets by it[facility] of 24 hr 00:00: mouth in [place] tablet 00 the Medical morning Branch and 2 tablets in the evening. Take with meals. rosuvastati Yes [id number] TAKE 1 [facility] n 20 mg 2-03 TABLET AT ity of tablet 00:00: BEDTIME, [place] 00 STOP Medical TAKING Branch ATORVASTAT IN metformin Yes [id number] 1000mg Take 2 [facility] ER 500 mg 2-03 tablets by it[facility] of 24 hr 00:00: mouth in [place] tablet 00 the Medical morning Branch and 2 tablets in the evening. Take with meals. rosuvastati 0 Yes [id number] TAKE 1 [facility] n 20 mg 2-03 TABLET AT ity of tablet 00:00: BEDTIME, [place] [address] STOP Medical TAKING Branch ATORVASTAT IN metformin Yes [id number] 1000mg Take 2 [facility] ER 500 mg 2-03 tablets by it[facility] of 24 hr 00:00: mouth in [place] tablet 00 the Medical morning Branch and 2 tablets in the evening. Take with meals. rosuvastati Yes [id number] TAKE 1 [facility] n 20 mg 2-03 TABLET AT ity of tablet 00:00: BEDTIME, [place] [address] STOP Medical TAKING Branch ATORVASTAT IN metformin Yes [id number] 1000mg Take 2 [facility] ER 500 mg 2-03 tablets by [facility] of 24 hr 00:00: mouth in [place] tablet 00 the Medical morning Branch and 2 tablets in the evening. Take with meals. rosuvastati Yes [id number] TAKE 1 [facility] n 20 mg 2-03 TABLET AT ity of tablet 00:00: BEDTIME, [place] [address] STOP Medical TAKING Branch ATORVASTAT IN metformin Yes [id number] 1000mg Take 2 [facility] ER 500 mg 2-03 tablets by it[facility] of 24 hr 00:00: mouth in [place] tablet 00 the Medical morning Branch and 2 tablets in the evening. Take with meals. rosuvastati Yes [id number] TAKE 1 [facility] n 20 mg 2-03 TABLET AT ity of tablet 00:00: BEDTIME, [place] [address] STOP Medical TAKING Branch ATORVASTAT IN metformin Yes [id number] 1000mg Take 2 [facility] ER 500 mg 2-03 tablets by [facility] of 24 hr 00:00: mouth in [place] tablet 00 the Medical morning Branch and 2 tablets in the evening. Take with meals. rosuvastati Yes [id number] TAKE 1 [facility] n 20 mg 2-03 TABLET AT ity of tablet 00:00: BEDTIME, [place] [address] STOP Medical TAKING Branch ATORVASTAT IN metformin Yes [id number] 1000mg Take 2 [facility] ER 500 mg 2-03 tablets by it[facility] of 24 hr 00:00: mouth in [place] tablet 00 the Medical morning Branch and 2 tablets in the evening. Take with meals. rosuvastati Yes [id number] TAKE 1 [facility] n 20 mg 2-03 TABLET AT it[facility] of tablet 00:00: BEDTIME, [place] 00 STOP Medical TAKING Branch ATORVASTAT IN metformin Yes [id number] 1000mg Take 2 [facility] ER 500 mg 2-03 tablets by it[facility] of 24 hr 00:00: mouth in [place] tablet 00 the Medical morning Branch and 2 tablets in the evening. Take with meals. rosuvastati Yes [id number] TAKE 1 [facility] n 20 mg 2-03 TABLET AT it[facility] of tablet 00:00: BEDTIME, [place] 00 STOP Medical TAKING Branch ATORVASTAT IN metformin 0 Yes [id number] 1000mg Take 2 [facility] ER 500 mg 2-03 tablets by it[facility] of 24 hr 00:00: mouth in [place] tablet 00 the Medical morning Branch and 2 tablets in the evening. Take with meals. rosuvastati Yes [id number] TAKE 1 [facility] n 20 mg 2-03 TABLET AT ity of tablet 00:00: BEDTIME, [place] [address] STOP Medical TAKING Branch ATORVASTAT IN metformin Yes [id number] 1000mg Take 2 [facility] ER 500 mg 2-03 tablets by ity of 24 hr 00:00: mouth in [place] tablet 00 the Medical morning Branch and 2 tablets in the evening. Take with meals. rosuvastati Yes [id number] TAKE 1 [facility] n 20 mg 2-03 TABLET AT ity of tablet 00:00: BEDTIME, [place] [address] STOP Medical TAKING Branch ATORVASTAT IN metformin 0 Yes [id number] 1000mg Take 2 [facility] ER 500 mg 2-03 tablets by it[facility] of 24 hr 00:00: mouth in [place] tablet 00 the Medical morning Branch and 2 tablets in the evening. Take with meals. rosuvastati Yes [id number] TAKE 1 [facility] n 20 mg 2-03 TABLET AT ity of tablet 00:00: BEDTIME, [place] [address] STOP Medical TAKING Branch ATORVASTAT IN metformin 0 Yes [id number] 1000mg Take 2 [facility] ER 500 mg 2-03 tablets by it[facility] of 24 hr 00:00: mouth in [place] tablet 00 the Medical morning Branch and 2 tablets in the evening. Take with meals. rosuvastati Yes [id number] TAKE 1 [facility] n 20 mg 2-03 TABLET AT ity of tablet 00:00: BEDTIME, [place] [address] STOP Medical TAKING Branch ATORVASTAT IN metformin 0 Yes [id number] 1000mg Take 2 [facility] ER 500 mg 2-03 tablets by it[facility] of 24 hr 00:00: mouth in [place] tablet 00 the Medical morning Branch and 2 tablets in the evening. Take with meals. rosuvastati 0 Yes [id number] TAKE 1 [facility] n 20 mg 2-03 TABLET AT it[facility] of tablet 00:00: BEDTIME, [place] 00 STOP Medical TAKING Branch ATORVASTAT IN metformin Yes [id number] 1000mg Take 2 [facility] ER 500 mg 2-03 tablets by it[facility] of 24 hr 00:00: mouth in [place] tablet 00 the Medical morning Branch and 2 tablets in the evening. Take with meals. rosuvastati 0 Yes [id number] TAKE 1 [facility] n 20 mg 2-03 TABLET AT ity of tablet 00:00: BEDTIME, [place] 00 STOP Medical TAKING Branch ATORVASTAT IN metformin Yes [id number] 1000mg Take 2 [facility] ER 500 mg 2-03 tablets by it[facility] of 24 hr 00:00: mouth in [place] tablet 00 the Medical morning Branch and 2 tablets in the evening. Take with meals. rosuvastati 0 Yes [id number] TAKE 1 [facility] n 20 mg 2-03 TABLET AT [facility] of tablet 00:00: BEDTIME, [place] 00 STOP Medical TAKING Branch ATORVASTAT IN metformin Yes [id number] 1000mg Take 2 [facility] ER 500 mg 2-03 tablets by [facility] of 24 hr 00:00: mouth in [place] tablet 00 the Medical morning Branch and 2 tablets in the evening. Take with meals. rosuvastati Yes [id number] TAKE 1 [facility] n 20 mg 2-03 TABLET AT it[facility] of tablet 00:00: BEDTIME, [place] 00 STOP Medical TAKING Branch ATORVASTAT IN TRUE METRIX Yes Use as [facility] ers AIR GLUCOSE 1-30 directed, ity of METER Kit 00:00: once a day [place] 00 to monitor Medical blood Branch glucose for ICD code E11.9 TRUEPLUS Yes Use as [facility] LANCETS 33 1-30 [...] Branch glucose for ICD code E11.9 TRUEPLUS 3-0 Yes Use as [facility] LANCETS 33 1-30 [...] Branch glucose for ICD code E11.9 TRUEPLUS 3-0 Yes Use as [facility] LANCETS 33 1-30 [...] Yes Use as [facility] ers AIR GLUCOSE -30 directed, ity of METER Kit 00:00: once [...] Yes Use as [facility] ers AIR GLUCOSE -30 directed, ity of METER Kit 00:00: once [...] ity of Soln 00:00: once a day 00 to monitor Medical blood Branch glucose for ICD code E11.9 TRUE METRIX 2023-0 Yes Use as [facility] ers LEVEL 1 1-30 directed, ity of Soln 00:00: once a day 00 to monitor Medical blood Branch glucose for ICD code E11.9 TRUE METRIX 2023-0 Yes Use as [facility] ers LEVEL 1 1-30 directed, ity of Soln 00:00: once a day 00 to monitor Medical blood Branch glucose for ICD code E11.9 TRUE METRIX 2023-0 Yes Use as [facility] ers LEVEL 1 -30 directed, ity of Soln 00:00: once a day [place] 00 to monitor Medical blood Branch glucose for ICD code E11.9 TRUE METRIX 2023-0 Yes Use as [facility] ers LEVEL 1 1-30 directed, ity of Soln 00:00: once a day [place] 00 to monitor Medical blood Branch glucose for ICD code E11.9 TRUE METRIX 3-0 Yes Use as [facility] ers LEVEL 1 1-30 directed, ity of Soln 00:00: once a day [place] 00 to monitor Medical blood Branch glucose for ICD code E11.9 TRUE METRIX 3-0 Yes Use as [facility] ers LEVEL 1 1-30 directed, ity of Soln 00:00: once a day [place] 00 to monitor Medical blood Branch glucose for ICD code E11.9 TRUE METRIX 3-0 2022- No Use as Uni vers AIR GLUCOSE 05-13 directed, it y of METER Kit 00:00: 00:00 once a day [place] 00 :00 to monitor Medical blood Branch glucose for ICD code E11.9 TRUEPLUS 2022-0 2022- No Use as [facility] s LANCETS 33 05-13 directed, ity of gauge Misc 00:00: 00:00 once a day [place] 00 :00 to monitor Medical blood Branch glucose for ICD code E11.9 Alcohol 2021-04 Yes [id number] Use as [facility] ers Swabs (BD 2-21 [...] for ICD code E11.9 Alcohol 2021-04 Yes [id number] Use as [facility] ers Swabs (BD 2-21 [...] for ICD code E11.9 Alcohol 2021-04 Yes [id number] Use as [facility] ers Swabs (BD 2-21 [...] for ICD code E11.9 Alcohol 2021-04 Yes [id number] Use as [facility] ers Swabs (BD 2-21 [...] for ICD code E11.9 Alcohol 2021-04 Yes [id number] Use as [facility] ers Swabs (BD 2-21 [...] for ICD code E11.9 Alcohol 2021-04 Yes [id number] Use as [facility] ers Swabs (BD 2-21 [...] for ICD code E11.9 Alcohol 2021-04 Yes [id number] Use as [facility] ers Swabs (BD 2-21 [...] for ICD code E11.9 Alcohol 2021-04 Yes [id number] Use as [facility] ers Swabs (BD 2-21 [...] for ICD code E11.9 Alcohol 2021-04 Yes [id number] Use as [facility] ers Swabs (BD 2-21 [...] for ICD code E11.9 Alcohol 2021-04 Yes [id number] Use as [facility] ers Swabs (BD 2-21 [...] for ICD code E11.9 Alcohol 2021-04 Yes [id number] Use as [facility] ers Swabs (BD 2-21 [...] for ICD code E11.9 Alcohol 2021-04 Yes [id number] Use as [facility] ers Swabs (BD 2-21 [...] for ICD code E11.9 Alcohol 2021-04 Yes [id number] Use as [facility] ers Swabs (BD 2-21 [...] for ICD code E11.9 Alcohol 2021-04 Yes [id number] Use as [facility] ers Swabs (BD 2-21 [...] for ICD code E11.9 Alcohol 2021-04 Yes [id number] Use as [facility] ers Swabs (BD 2-21 [...] for ICD code E11.9 Alcohol 2021-04 Yes [id number] Use as [facility] ers Swabs (BD 2-21 [...] for ICD code E11.9 Alcohol 2021-04 Yes [id number] Use as [facility] ers Swabs (BD 2-21 [...] for ICD code E11.9 Alcohol 2021-04 Yes [id number] Use as [facility] ers Swabs (BD 2-21 [...] for ICD code E11.9 Alcohol 2021-04 Yes [id number] Use as [facility] ers Swabs (BD 2-21 [...] for ICD code E11.9 Alcohol 2021-04 Yes [id number] Use as [facility] ers Swabs (BD 2-21 [...] for ICD code E11.9 Alcohol 2021-04 Yes [id number] Use as [facility] ers Swabs (BD 2-21 [...] for ICD code E11.9 Alcohol 2021-04 Yes [id number] Use as [facility] ers Swabs (BD 2-21 [...] for ICD code E11.9 Alcohol 2021-04 Yes [id number] Use as [facility] ers Swabs (BD 2-21 [...] for ICD code E11.9 Alcohol 2021-04 Yes [id number] Use as [facility] ers Swabs (BD 2-21 [...] for ICD code E11.9 Alcohol 2021-04 Yes [id number] Use as [facility] ers Swabs (BD 2-21 [...] for ICD code E11.9 Alcohol 2021-04 Yes [id number] Use as [facility] ers Swabs (BD 2-21 [...] for ICD code E11.9 Alcohol 2021-04 Yes [id number] Use as [facility] ers Swabs (BD 2-21 [...] for ICD code E11.9 Alcohol 2021-04 Yes [id number] Use as [facility] ers Swabs (BD 2-21 [...] for ICD code E11.9 Alcohol 2021-04 Yes [id number] Use as [facility] ers Swabs (BD 2-21 [...] for ICD code E11.9 Alcohol 2021-04 Yes [id number] Use as [facility] ers Swabs (BD 2-21 [...] for ICD code E11.9 Alcohol 2021-04 Yes [id number] Use as [facility] ers Swabs (BD 2-21 [...] for ICD code E11.9 Alcohol 2021-04 Yes [id number] Use as [facility] ers Swabs (BD 2-21 [...] for ICD code E11.9 Alcohol 2021-04 Yes [id number] Use as [facility] ers Swabs (BD 2-21 [...] for ICD code E11.9 Alcohol 2021-04 Yes [id number] Use as [facility] ers Swabs (BD 2-21 [...] for ICD code E11.9 Alcohol 2021-04 Yes [id number] Use as [facility] ers Swabs (BD 2-21 [...] for ICD code E11.9 Alcohol 2021-04 Yes [id number] Use as [facility] ers Swabs (BD 2-21 [...] for ICD code E11.9 Alcohol 2021-04 Yes [id number] Use as [facility] ers Swabs (BD 2-21 [...] for ICD code E11.9 Alcohol 2021-04 Yes [id number] Use as [facility] ers Swabs (BD 2-21 [...] for ICD code E11.9 Alcohol 2021-04 Yes [id number] Use as [facility] ers Swabs (BD 2-21 [...] for ICD code E11.9 Alcohol 2021-04 Yes [id number] Use as [facility] ers Swabs (BD 2-21 [...] for ICD code E11.9 Alcohol 2021-04 Yes [id number] Use as [facility] ers Swabs (BD 2-21 [...] for ICD code E11.9 Alcohol 2021-04 Yes [id number] Use as [facility] ers Swabs (BD 2-21 [...] for ICD code E11.9 Alcohol 2021-04 Yes [id number] Use as [facility] ers Swabs (BD 2-21 [...] for ICD code E11.9 Alcohol 2021-04 Yes [id number] Use as [facility] ers Swabs (BD 2-21 [...] for ICD code E11.9 Alcohol 2021-04 Yes [id number] Use as [facility] ers Swabs (BD 2-21 [...] for ICD code E11.9 Alcohol 2021-04 Yes [id number] Use as [facility] ers Swabs (BD 2-21 [...] for ICD code E11.9 Alcohol 2021-04 Yes [id number] Use as [facility] ers Swabs (BD 2-21 [...] for ICD code E11.9 Alcohol 2021-04 Yes [id number] Use as [facility] ers Swabs (BD 2-21 [...] for ICD code E11.9 Alcohol 2021-04 Yes [id number] Use as [facility] ers Swabs (BD 2-21 [...] for ICD code E11.9 Alcohol 2021-04 Yes [id number] Use as [facility] ers Swabs (BD 2-21 [...] for ICD code E11.9 Alcohol 2021-04 Yes [id number] Use as [facility] ers Swabs (BD 2-21 [...] for ICD code E11.9 Alcohol 2021-04 Yes [id number] Use as [facility] ers Swabs (BD 2-21 [...] for ICD code E11.9 Alcohol 2021-04 Yes [id number] Use as [facility] ers Swabs (BD 2-21 [...] for ICD code E11.9 Alcohol 2021-04 Yes [id number] Use as [facility] ers Swabs (BD 2-21 [...] for ICD code E11.9 Alcohol 2021-04 Yes [id number] Use as [facility] ers Swabs (BD 2-21 [...] for ICD code E11.9 Alcohol 2021-04 Yes [id number] Use as [facility] ers Swabs (BD 2-21 [...] for ICD code E11.9 Alcohol 2021-04 Yes [id number] Use as [facility] ers Swabs (BD 2-21 [...] for ICD code E11.9 Alcohol 2021-04 Yes [id number] Use as [facility] ers Swabs (BD 2-21 [...] for ICD code E11.9 Alcohol 2021-04 Yes [id number] Use as [facility] ers Swabs (BD 2-21 [...] for ICD code E11.9 Alcohol 2021-04 Yes [id number] Use as [facility] ers Swabs (BD 2-21 [...] for ICD code E11.9 Alcohol 2021-04 Yes [id number] Use as [facility] ers Swabs (BD 2-21 [...] for ICD code E11.9 Alcohol 2021-04 Yes [id number] Use as [facility] ers Swabs (BD 2-21 [...] for ICD code E11.9 Alcohol 2021-04 Yes [id number] Use as [facility] ers Swabs (BD 2-21 [...] for ICD code E11.9 Alcohol 2021-04 Yes [id number] Use as [facility] ers Swabs (BD 2-21 [...] for ICD code E11.9 Alcohol 2021-04 Yes [id number] Use as [facility] ers Swabs (BD 2-21 [...] for ICD code E11.9 tiZANidine 2021-04 Yes [id number] 2mg Take 1 [facility] 2 mg tablet 2-16 tablet by ity of 00:00: mouth [place] 00 every 6 Medical (six) Branch hours as needed for Pain (scale 4-6). albuterol 2021-04 Yes [id number] 2 puffs U nivers 90 2-16 with ity of mcg/actuati 00:00: spacer 4 [place] on inhaler 00 times a Medica l day for at Branch least 7 days tiZANidine 2021-04 Yes [id number] 2mg Take 1 [facility] 2 mg tablet 2-16 tablet by ity of 00:00: mouth [place] 00 every 6 Medical (six) Branch hours as needed for Pain (scale 4-6). albuterol 2021-04 Yes [id number] 2 puffs U nivers 90 2-16 with ity of mcg/actuati 00:00: spacer 4 [place] on inhaler 00 times a Medica l day for at Branch least 7 days tiZANidine 2021-04 Yes [id number] 2mg Take 1 [facility] 2 mg tablet 2-16 tablet by ity of 00:00: mouth [place] 00 every 6 Medical (six) Branch hours as needed for Pain (scale 4-6). albuterol 2021-04 Yes [id number] 2 puffs U nivers 90 2-16 with ity of mcg/actuati 00:00: spacer 4 [place] on inhaler 00 times a Medica l day for at Branch least 7 days tiZANidine 2021-04 Yes [id number] 2mg Take 1 [facility] 2 mg tablet 2-16 tablet by ity of 00:00: mouth [place] 00 every 6 Medical (six) Branch hours as needed for Pain (scale 4-6). albuterol 2021-04 Yes [id number] 2 puffs U nivers 90 2-16 with ity of mcg/actuati 00:00: spacer 4 [place] on inhaler 00 times a Medica l day for at Branch least 7 days tiZANidine 2021-04 Yes [id number] 2mg Take 1 [facility] 2 mg tablet 2-16 tablet by ity of 00:00: mouth [place] 00 every 6 Medical (six) Branch hours as needed for Pain (scale 4-6). albuterol 2021-04 Yes [id number] 2 puffs U nivers 90 2-16 with ity of mcg/actuati 00:00: spacer 4 [place] on inhaler 00 times a Medica l day for at Branch least 7 days tiZANidine 2021-04 Yes [id number] 2mg Take 1 [facility] 2 mg tablet 2-16 tablet by ity of 00:00: mouth [place] 00 every 6 Medical (six) Branch hours as needed for Pain (scale 4-6). albuterol 2021-04 Yes [id number] 2 puffs U nivers 90 2-16 with ity of mcg/actuati 00:00: spacer 4 [place] on inhaler 00 times a Medica l day for at Branch least 7 days tiZANidine 2021-04 Yes [id number] 2mg Take 1 [facility] 2 mg tablet 2-16 tablet by ity of 00:00: mouth [place] 00 every 6 Medical (six) Branch hours as needed for Pain (scale 4-6). albuterol 2021-04 Yes [id number] 2 puffs U nivers 90 2-16 with ity of mcg/actuati 00:00: spacer 4 [place] on inhaler 00 times a Medica l day for at Branch least 7 days tiZANidine 2021-04 Yes [id number] 2mg Take 1 [facility] 2 mg tablet 2-16 tablet by ity of 00:00: mouth [place] 00 every 6 Medical (six) Branch hours as needed for Pain (scale 4-6). albuterol 2021-04 Yes [id number] 2 puffs U nivers 90 2-16 with ity of mcg/actuati 00:00: spacer 4 [place] on inhaler 00 times a Medica l day for at Branch least 7 days tiZANidine 2021-04 Yes [id number] 2mg Take 1 [facility] 2 mg tablet 2-16 tablet by ity of 00:00: mouth [place] 00 every 6 Medical (six) Branch hours as needed for Pain (scale 4-6). albuterol 2021-04 Yes [id number] 2 puffs U nivers 90 2-16 with ity of mcg/actuati 00:00: spacer 4 [place] on inhaler 00 times a Medica l day for at Branch least 7 days tiZANidine 2021-04 Yes [id number] 2mg Take 1 [facility] 2 mg tablet 2-16 tablet by ity of 00:00: mouth [place] 00 every 6 Medical (six) Branch hours as needed for Pain (scale 4-6). albuterol 2021-04 Yes [id number] 2 puffs U nivers 90 2-16 with ity of mcg/actuati 00:00: spacer 4 [place] on inhaler 00 times a Medica l day for at Branch least 7 days tiZANidine 2021-04 Yes [id number] 2mg Take 1 [facility] 2 mg tablet 2-16 tablet by ity of 00:00: mouth [place] 00 every 6 Medical (six) Branch hours as needed for Pain (scale 4-6). albuterol 2021-04 Yes [id number] 2 puffs U nivers 90 2-16 with ity of mcg/actuati 00:00: spacer 4 [place] on inhaler 00 times a Medica l day for at Branch least 7 days tiZANidine 2021-04 Yes [id number] 2mg Take 1 [facility] 2 mg tablet 2-16 tablet by ity of 00:00: mouth [place] 00 every 6 Medical (six) Branch hours as needed for Pain (scale 4-6). albuterol 2021-04 Yes [id number] 2 puffs U nivers 90 2-16 with ity of mcg/actuati 00:00: spacer 4 [place] on inhaler 00 times a Medica l day for at Branch least 7 days tiZANidine 2021-04 Yes [id number] 2mg Take 1 [facility] 2 mg tablet 2-16 tablet by ity of 00:00: mouth [place] 00 every 6 Medical (six) Branch hours as needed for Pain (scale 4-6). albuterol 2021-04 Yes [id number] 2 puffs U nivers 90 2-16 with ity of mcg/actuati 00:00: spacer 4 [place] on inhaler 00 times a Medica l day for at Branch least 7 days tiZANidine 2021-04 Yes [id number] 2mg Take 1 [facility] 2 mg tablet 2-16 tablet by ity of 00:00: mouth [place] 00 every 6 Medical (six) Branch hours as needed for Pain (scale 4-6). albuterol 2021-04 Yes [id number] 2 puffs U nivers 90 2-16 with ity of mcg/actuati 00:00: spacer 4 [place] on inhaler 00 times a Medica l day for at Branch least 7 days tiZANidine 2021-04 Yes [id number] 2mg Take 1 [facility] 2 mg tablet 2-16 tablet by ity of 00:00: mouth [place] 00 every 6 Medical (six) Branch hours as needed for Pain (scale 4-6). albuterol 2021-04 Yes [id number] 2 puffs U nivers 90 2-16 with ity of mcg/actuati 00:00: spacer 4 [place] on inhaler 00 times a Medica l day for at Branch least 7 days tiZANidine 2021-04 Yes [id number] 2mg Take 1 [facility] 2 mg tablet 2-16 tablet by ity of 00:00: mouth [place] 00 every 6 Medical (six) Branch hours as needed for Pain (scale 4-6). albuterol 2021-04 Yes [id number] 2 puffs U nivers 90 2-16 with ity of mcg/actuati 00:00: spacer 4 [place] on inhaler 00 times a Medica l day for at Branch least 7 days tiZANidine 2021-04 Yes [id number] 2mg Take 1 [facility] 2 mg tablet 2-16 tablet by ity of 00:00: mouth [place] 00 every 6 Medical (six) Branch hours as needed for Pain (scale 4-6). albuterol 2021-04 Yes [id number] 2 puffs U nivers 90 2-16 with ity of mcg/actuati 00:00: spacer 4 [place] on inhaler 00 times a Medica l day for at Branch least 7 days tiZANidine 2021-04 Yes [id number] 2mg Take 1 [facility] 2 mg tablet 2-16 tablet by ity of 00:00: mouth [place] 00 every 6 Medical (six) Branch hours as needed for Pain (scale 4-6). albuterol 2021-04 Yes [id number] 2 puffs U nivers 90 2-16 with ity of mcg/actuati 00:00: spacer 4 [place] on inhaler 00 times a Medica l day for at Branch least 7 days tiZANidine 2021-04 Yes [id number] 2mg Take 1 [facility] 2 mg tablet 2-16 tablet by ity of 00:00: mouth [place] 00 every 6 Medical (six) Branch hours as needed for Pain (scale 4-6). albuterol 2021-04 Yes [id number] 2 puffs U nivers 90 2-16 with ity of mcg/actuati 00:00: spacer 4 [place] on inhaler 00 times a Medica l day for at Branch least 7 days tiZANidine 2021-04 Yes [id number] 2mg Take 1 [facility] 2 mg tablet 2-16 tablet by ity of 00:00: mouth [place] 00 every 6 Medical (six) Branch hours as needed for Pain (scale 4-6). albuterol 2021-04 Yes [id number] 2 puffs U nivers 90 2-16 with ity of mcg/actuati 00:00: spacer 4 [place] on inhaler 00 times a Medica l day for at Branch least 7 days tiZANidine 2021-04 Yes [id number] 2mg Take 1 [facility] 2 mg tablet 2-16 tablet by ity of 00:00: mouth [place] 00 every 6 Medical (six) Branch hours as needed for Pain (scale 4-6). albuterol 2021-04 Yes [id number] 2 puffs U nivers 90 2-16 with ity of mcg/actuati 00:00: spacer 4 [place] on inhaler 00 times a Medica l day for at Branch least 7 days tiZANidine 2021-04 Yes [id number] 2mg Take 1 [facility] 2 mg tablet 2-16 tablet by ity of 00:00: mouth [place] 00 every 6 Medical (six) Branch hours as needed for Pain (scale 4-6). albuterol 2021-04 Yes [id number] 2 puffs U nivers 90 2-16 with ity of mcg/actuati 00:00: spacer 4 [place] on inhaler 00 times a Medica l day for at Branch least 7 days tiZANidine 2021-04 Yes [id number] 2mg Take 1 [facility] 2 mg tablet 2-16 tablet by ity of 00:00: mouth [place] 00 every 6 Medical (six) Branch hours as needed for Pain (scale 4-6). albuterol 2021-04 Yes [id number] 2 puffs U nivers 90 2-16 with ity of mcg/actuati 00:00: spacer 4 [place] on inhaler 00 times a Medica l day for at Branch least 7 days tiZANidine 2021-04 Yes [id number] 2mg Take 1 [facility] 2 mg tablet 2-16 tablet by ity of 00:00: mouth [place] 00 every 6 Medical (six) Branch hours as needed for Pain (scale 4-6). albuterol 2021-04 Yes [id number] 2 puffs U nivers 90 2-16 with ity of mcg/actuati 00:00: spacer 4 [place] on inhaler 00 times a Medica l day for at Branch least 7 days tiZANidine 2021-04 Yes [id number] 2mg Take 1 [facility] 2 mg tablet 2-16 tablet by ity of 00:00: mouth [place] 00 every 6 Medical (six) Branch hours as needed for Pain (scale 4-6). albuterol 2021-04 Yes [id number] 2 puffs U nivers 90 2-16 with ity of mcg/actuati 00:00: spacer 4 [place] on inhaler 00 times a Medica l day for at Branch least 7 days tiZANidine 2021-04 Yes [id number] 2mg Take 1 [facility] 2 mg tablet 2-16 tablet by ity of 00:00: mouth [place] 00 every 6 Medical (six) Branch hours as needed for Pain (scale 4-6). albuterol 2021-04 Yes [id number] 2 puffs U nivers 90 2-16 with ity of mcg/actuati 00:00: spacer 4 [place] on inhaler 00 times a Medica l day for at Branch least 7 days tiZANidine 2021-04 Yes [id number] 2mg Take 1 [facility] 2 mg tablet 2-16 tablet by ity of 00:00: mouth [place] 00 every 6 Medical (six) Branch hours as needed for Pain (scale 4-6). albuterol 2021-04 Yes [id number] 2 puffs [facility] 90 2-16 with ity of mcg/actuati 00:00: spacer 4 [place] on inhaler 00 times a Medica l day for at Branch least 7 days tiZANidine 2021-04 Yes [id number] 2mg Take 1 [facility] 2 mg tablet 2-16 tablet by ity of 00:00: mouth [place] 00 every 6 Medical (six) Branch hours as needed for Pain (scale 4-6). albuterol 2021-04 Yes [id number] 2 puffs [facility] 90 2-16 with ity of mcg/actuati 00:00: spacer 4 [place] inhaler 00 times a Medica l day for at Branch least 7 days tiZANidine 2021-04 Yes [id number] 2mg Take 1 [facility] 2 mg tablet 2-16 tablet by ity of 00:00: mouth [place] 00 every 6 Medical (six) Branch hours as needed for Pain (scale 4-6). albuterol 2021-04 Yes [id number] 2 puffs [facility] 90 2-16 with ity of mcg/actuati 00:00: spacer 4 [place] inhaler 00 times a Medica l day for at Branch least 7 days tiZANidine 2021-04 Yes [id number] 2mg Take 1 [facility] 2 mg tablet 2-16 tablet by ity of 00:00: mouth [place] 00 every 6 Medical (six) Branch hours as needed for Pain (scale 4-6). albuterol 2021-04 Yes [id number] 2 puffs [facility] n[facility] 90 2-16 with ity of mcg/actuati 00:00: spacer 4 [place] on inhaler 00 times a Medica l day for at Branch least 7 days tiZANidine 2021-04 Yes [id number] 2mg Take 1 [facility] 2 mg tablet 2-16 tablet by ity of 00:00: mouth [place] 00 every 6 Medical (six) Branch hours as needed for Pain (scale 4-6). albuterol 2021-04 Yes [id number] 2 puffs [facility] nivers 90 2-16 with ity of mcg/actuati 00:00: spacer 4 [place] inhaler 00 times a Medica l day for at Branch least 7 days tiZANidine 2021-04 Yes [id number] 2mg Take 1 [facility] 2 mg tablet 2-16 tablet by ity of 00:00: mouth [place] 00 every 6 Medical (six) Branch hours as needed for Pain (scale 4-6). albuterol 2021-04 Yes [id number] 2 puffs [facility] nivers 90 2-16 with ity of mcg/actuati 00:00: spacer 4 [place] inhaler 00 times a Medica l day for at Branch least 7 days tiZANidine 2021-04 Yes [id number] 2mg Take 1 [facility] 2 mg tablet 2-16 tablet by ity of 00:00: mouth [place] 00 every 6 Medical (six) Branch hours as needed for Pain (scale 4-6). albuterol 2021-04 Yes [id number] 2 puffs [facility] nivers 90 2-16 with ity of mcg/actuati 00:00: spacer 4 [place] inhaler 00 times a Medica l day for at Branch least 7 days tiZANidine 2021-04 Yes [id number] 2mg Take 1 [facility] 2 mg tablet 2-16 tablet by ity of 00:00: mouth [place] 00 every 6 Medical (six) Branch hours as needed for Pain (scale 4-6). albuterol 2021-04 Yes [id number] 2 puffs [facility]ivers 90 2-16 with ity of mcg/actuati 00:00: spacer 4 [place] inhaler 00 times a Medica l day for at Branch least 7 days tiZANidine 2021-04 Yes [id number] 2mg Take 1 [facility] 2 mg tablet 2-16 tablet by ity of 00:00: mouth [place] 00 every 6 Medical (six) Branch hours as needed for Pain (scale 4-6). albuterol 2021-04 Yes [id number] 2 puffs [facility] nivers 90 2-16 with ity of mcg/actuati 00:00: spacer 4 [place] on inhaler 00 times a Medica l day for at Branch least 7 days tiZANidine 2021-04 Yes [id number] 2mg Take 1 [facility] 2 mg tablet 2-16 tablet by ity of 00:00: mouth [place] 00 every 6 Medical (six) Branch hours as needed for Pain (scale 4-6). albuterol 2021-04 Yes [id number] 2 puffs [facility] nivers 90 2-16 with ity of mcg/actuati 00:00: spacer 4 [place] on inhaler 00 times a Medica l day for at Branch least 7 days tiZANidine 2021-04 Yes [id number] 2mg Take 1 [facility] 2 mg tablet 2-16 tablet by ity of 00:00: mouth [place] 00 every 6 Medical (six) Branch hours as needed for Pain (scale 4-6). albuterol 2021-04 Yes [id number] 2 puffs [facility] nivers 90 2-16 with ity of mcg/actuati 00:00: spacer 4 [place] on inhaler 00 times a Medica l day for at Branch least 7 days tiZANidine 2021-04 Yes [id number] 2mg Take 1 [facility] 2 mg tablet 2-16 tablet by ity of 00:00: mouth [place] 00 every 6 Medical (six) Branch hours as needed for Pain (scale 4-6). albuterol 2021-04 Yes [id number] 2 puffs [facility] nivers 90 2-16 with ity of mcg/actuati 00:00: spacer 4 [place] on inhaler 00 times a Medica l day for at Branch least 7 days tiZANidine 2021-04 Yes [id number] 2mg Take 1 [facility] 2 mg tablet 2-16 tablet by ity of 00:00: mouth [place] 00 every 6 Medical (six) Branch hours as needed for Pain (scale 4-6). albuterol 2021-04 Yes [id number] 2 puffs U nivers 90 2-16 with ity of mcg/actuati 00:00: spacer 4 [place] on inhaler 00 times a Medica l day for at Branch least 7 days tiZANidine 2021-04 Yes [id number] 2mg Take 1 [facility] 2 mg tablet 2-16 tablet by ity of 00:00: mouth [place] 00 every 6 Medical (six) Branch hours as needed for Pain (scale 4-6). albuterol 2021-04 Yes [id number] 2 puffs [facility] nivers 90 2-16 with ity of mcg/actuati 00:00: spacer 4 [place] on inhaler 00 times a Medica l day for at Branch least 7 days tiZANidine 2021-04 Yes [id number] 2mg Take 1 [facility] 2 mg tablet 2-16 tablet by ity of 00:00: mouth [place] 00 every 6 Medical (six) Branch hours as needed for Pain (scale 4-6). albuterol 2021-04 Yes [id number] 2 puffs [facility] nivers 90 2-16 with ity of mcg/actuati 00:00: spacer 4 [place] on inhaler 00 times a Medica l day for at Branch least 7 days tiZANidine 2021-04 Yes [id number] 2mg Take 1 [facility] 2 mg tablet 2-16 tablet by ity of 00:00: mouth [place] 00 every 6 Medical (six) Branch hours as needed for Pain (scale 4-6). albuterol 2021-04 Yes [id number] 2 puffs [facility] nivers 90 2-16 with ity of mcg/actuati 00:00: spacer 4 [place] on inhaler 00 times a Medica l day for at Branch least 7 days tiZANidine 2021-04 Yes [id number] 2mg Take 1 [facility] 2 mg tablet 2-16 tablet by ity of 00:00: mouth [place] 00 every 6 Medical (six) Branch hours as needed for Pain (scale 4-6). albuterol 2021-04 Yes [id number] 2 puffs [facility] nivers 90 2-16 with ity of mcg/actuati 00:00: spacer 4 [place] on inhaler 00 times a Medica l day for at Branch least 7 days tiZANidine 2021-04 Yes [id number] 2mg Take 1 [facility] 2 mg tablet 2-16 tablet by ity of 00:00: mouth [place] 00 every 6 Medical (six) Branch hours as needed for Pain (scale 4-6). albuterol 2021-04 Yes [id number] 2 puffs U nivers 90 2-16 with ity of mcg/actuati 00:00: spacer 4 [place] on inhaler 00 times a Medica l day for at Branch least 7 days tiZANidine 2021-04 Yes [id number] 2mg Take 1 [facility] 2 mg tablet 2-16 tablet by ity of 00:00: mouth [place] 00 every 6 Medical (six) Branch hours as needed for Pain (scale 4-6). albuterol 2021-04 Yes [id number] 2 puffs [facility] nivers 90 2-16 with ity of mcg/actuati 00:00: spacer 4 [place] on inhaler 00 times a Medica l day for at Branch least 7 days tiZANidine 2021-04 Yes [id number] 2mg Take 1 [facility] 2 mg tablet 2-16 tablet by ity of 00:00: mouth [place] 00 every 6 Medical (six) Branch hours as needed for Pain (scale 4-6). albuterol 2021-04 Yes [id number] 2 puffs [facility] nivers 90 2-16 with ity of mcg/actuati 00:00: spacer 4 [place] on inhaler 00 times a Medica l day for at Branch least 7 days albuterol 2021-04 Yes [id number] 2 puffs [facility] 90 2-16 with ity of mcg/actuati 00:00: spacer 4 [place] on inhaler 00 times a Medica l day for at Branch least 7 days albuterol 2021-04 Yes [id number] 2 puffs [facility] 90 2-16 with ity of mcg/actuati 00:00: spacer 4 [place] on inhaler 00 times a Medica l day for at Branch least 7 days albuterol 2021-04 Yes [id number] 2 puffs [facility] 90 2-16 with ity of mcg/actuati 00:00: spacer 4 [place] on inhaler 00 times a Medica l day for at Branch least 7 days albuterol 2021-04 Yes [id number] 2 puffs [facility] 90 2-16 with ity of mcg/actuati 00:00: spacer 4 [place] on inhaler 00 times a Medica l day for at Branch least 7 days albuterol 2021-04 Yes [id number] 2 puffs [facility] 90 2-16 with ity of mcg/actuati 00:00: spacer 4 [place] on inhaler 00 times a Medica l day for at Branch least 7 days albuterol 2021-04 Yes [id number] 2 puffs [facility] 90 2-16 with ity of mcg/actuati 00:00: spacer 4 [place] on inhaler 00 times a Medica l day for at Branch least 7 days albuterol 2021-04 Yes [id number] 2 puffs [facility] 90 2-16 with ity of mcg/actuati 00:00: spacer 4 [place] on inhaler 00 times a Medica l day for at Branch least 7 days albuterol 2021-04 Yes [id number] 2 puffs [facility] 90 2-16 with ity of mcg/actuati 00:00: spacer 4 [place] on inhaler 00 times a Medica l day for at Branch least 7 days albuterol 2021-04 Yes [id number] 2 puffs [facility] 90 2-16 with ity of mcg/actuati 00:00: spacer 4 [place] on inhaler 00 times a Medica l day for at Branch least 7 days albuterol 2021-04 Yes [id number] 2 puffs [facility] 90 2-16 with ity of mcg/actuati 00:00: spacer 4 [place] on inhaler 00 times a Medica l day for at Branch least 7 days albuterol 2021-04 Yes [id number] 2 puffs [facility] n[facility] 90 2-16 with ity of mcg/actuati 00:00: spacer 4 [place] on inhaler 00 times a Medica l day for at Branch least 7 days albuterol 2021-04 Yes [id number] 2 puffs [facility] n[facility] 90 2-16 with ity of mcg/actuati 00:00: spacer 4 [place] on inhaler 00 times a Medica l day for at Branch least 7 days albuterol 2021-04 Yes [id number] 2 puffs U nivers 90 2-16 with ity of mcg/actuati 00:00: spacer 4 [place] on inhaler 00 times a Medica l day for at Branch least 7 days albuterol 2021-04 Yes [id number] 2 puffs U nivers 90 2-16 with ity of mcg/actuati 00:00: spacer 4 [place] on inhaler 00 times a Medica l day for at Branch least 7 days albuterol 2021-04 Yes [id number] 2 puffs U nivers 90 2-16 with ity of mcg/actuati 00:00: spacer 4 [place] on inhaler 00 times a Medica l day for at Branch least 7 days albuterol 2021-04 Yes [id number] 2 puffs U n[facility] 90 2-16 with ity of mcg/actuati 00:00: spacer 4 [place] on inhaler 00 times a Medica l day for at Branch least 7 days albuterol 2021-04 Yes [id number] 2 puffs [facility] n[facility] 90 2-16 with ity of mcg/actuati 00:00: spacer 4 [place] on inhaler 00 times a Medica l day for at Branch least 7 days albuterol 2021-04 Yes [id number] 2 puffs [facility] n[facility] 90 2-16 with ity of mcg/actuati 00:00: spacer 4 [place] on inhaler 00 times a Medica l day for at Branch least 7 days albuterol 2021-04 Yes [id number] 2 puffs [facility] 90 2-16 with ity of mcg/actuati 00:00: spacer 4 [place] on inhaler 00 times a Medica l day for at Branch least 7 days albuterol 2021-04 Yes [id number] 2 puffs [facility] n[facility] 90 2-16 with ity of mcg/actuati 00:00: spacer 4 [place] on inhaler 00 times a Medica l day for at Branch least 7 days albuterol 2021-04 Yes [id number] 2 puffs [facility] 90 2-16 with ity of mcg/actuati 00:00: spacer 4 [place] on inhaler 00 times a Medica l day for at Branch least 7 days albuterol 2021-04 Yes [id number] 2 puffs [facility] n[facility] 90 2-16 with ity of mcg/actuati 00:00: spacer 4 [place] on inhaler 00 times a Medica l day for at Branch least 7 days albuterol 2021-04 Yes [id number] 2 puffs [facility] 90 2-16 with ity of mcg/actuati 00:00: spacer 4 [place] on inhaler 00 times a Medica l day for at Branch least 7 days albuterol 2021-04 Yes [id number] 2 puffs [facility] n[facility] 90 2-16 with ity of mcg/actuati 00:00: spacer 4 [place] on inhaler 00 times a Medica l day for at Branch least 7 days tiZANidine 2021-04- No [id number] 2mg Take 1 [facility] 2 mg tablet 2-16 -28 tablet by it y of 00:00: 00:00 mouth [place] 00 :00 every 6 Medical (six) Branch hours as needed for Pain (scale 4-6). tiZANidine 2021-04- No [id number] 2mg Take 1 [facility] 2 mg tablet 2-16 -28 tablet by it y of 00:00: 00:00 mouth [place] 00 :00 every 6 Medical (six) Branch hours as needed for Pain (scale 4-6). ergocalcife 2021-04 Yes [id number] TAKE 1 [facility] rol, 2-09 CAPSULE BY ity of vitamin d2, 00:00: MOUTH [place] 1,250 mcg 00 EVERY TWO Medic al (50,000 WEEKS WITH Branch unit) FOOD capsule NIFEdipine 2021-04 Yes [id number] 60mg Take 1 [facility] n[facility] XL 60 mg 24 2-09 tablet by ity of hr tablet 00:00: mouth [place] 00 the Medical morning. [place] ergocalcife 2021-04 Yes [id number] TAKE 1 [facility] rol, 2-09 CAPSULE BY ity of vitamin d2, 00:00: MOUTH [place] 1,250 mcg 00 EVERY TWO Medic al (50,000 WEEKS WITH Branch unit) FOOD capsule NIFEdipine 2021-04 Yes [id number] 60mg Take 1 [facility] n[facility] XL 60 mg 24 2-09 tablet by [facility]y of hr tablet 00:00: mouth [place] 00 the Medical morning. [place] ergocalcife 2021-04 Yes [id number] TAKE 1 [facility] rol, 2-09 CAPSULE BY ity of vitamin d2, 00:00: MOUTH [place] 1,250 mcg 00 EVERY TWO Medic al (50,000 WEEKS WITH Branch unit) FOOD capsule NIFEdipine 2021-04 Yes [id number] 60mg Take 1 [facility] n[facility] XL 60 mg 24 2-09 tablet by [facility]y of hr tablet 00:00: mouth [place] 00 the Medical morning. [place] ergocalcife 2021-04 Yes [id number] TAKE 1 [facility] rol, 2-09 CAPSULE BY ity of vitamin d2, 00:00: MOUTH [place] 1,250 mcg 00 EVERY TWO Medic al (50,000 WEEKS WITH Branch unit) FOOD capsule NIFEdipine 2021-04 Yes [id number] 60mg Take 1 [facility] nivers XL 60 mg 24 2-09 tablet by [facility]y of hr tablet 00:00: mouth [place] 00 the Medical morning. Branch ergocalcife 2021-04 Yes [id number] TAKE 1 [facility] rol, 2-09 CAPSULE BY ity of vitamin d2, 00:00: MOUTH [place] 1,250 mcg 00 EVERY TWO Medic al (50,000 WEEKS WITH Branch unit) FOOD capsule NIFEdipine 2021-04 Yes [id number] 60mg Take 1 [facility] nivers XL 60 mg 24 2-09 tablet by [facility]y of hr tablet 00:00: mouth [place] 00 the Medical morning. Branch ergocalcife 2021-04 Yes [id number] TAKE 1 [facility] rol, 2-09 CAPSULE BY ity of vitamin d2, 00:00: MOUTH [place] 1,250 mcg 00 EVERY TWO Medic al (50,000 WEEKS WITH Branch unit) FOOD capsule NIFEdipine 2021-04 Yes [id number] 60mg Take 1 [facility] n[facility] XL 60 mg 24 2-09 tablet by [facility]y of hr tablet 00:00: mouth [place] 00 the Medical morning. Branch ergocalcife 2021-04 Yes [id number] TAKE 1 [facility] rol, 2-09 CAPSULE BY ity of vitamin d2, 00:00: MOUTH [place] 1,250 mcg 00 EVERY TWO Medic al (50,000 WEEKS WITH Branch unit) FOOD capsule NIFEdipine 2021-04 Yes [id number] 60mg Take 1 [facility] n[facility] XL 60 mg 24 2-09 tablet by [facility]y of hr tablet 00:00: mouth [place] 00 the Medical morning. Branch ergocalcife 2021-04 Yes [id number] TAKE 1 [facility] rol, 2-09 CAPSULE BY ity of vitamin d2, 00:00: MOUTH [place] 1,250 mcg 00 EVERY TWO Medic al (50,000 WEEKS WITH Branch unit) FOOD capsule NIFEdipine 2021-04 Yes [id number] 60mg Take 1 [facility] nivers XL 60 mg 24 2-09 tablet by [facility]y of hr tablet 00:00: mouth [place] 00 the Medical morning. Branch ergocalcife 2021-04 Yes [id number] TAKE 1 [facility] rol, 2-09 CAPSULE BY ity of vitamin d2, 00:00: MOUTH [place] 1,250 mcg 00 EVERY TWO Medic al (50,000 WEEKS WITH Branch unit) FOOD capsule NIFEdipine 2021-04 Yes [id number] 60mg Take 1 [facility] nivers XL 60 mg 24 2-09 tablet by ity of hr tablet 00:00: mouth [place] 00 the Medical morning. [place] ergocalcife 2021-04 Yes [id number] TAKE 1 [facility] rol, 2-09 CAPSULE BY ity of vitamin d2, 00:00: MOUTH [place] 1,250 mcg 00 EVERY TWO Medic al (50,000 WEEKS WITH Branch unit) FOOD capsule NIFEdipine 2021-04 Yes [id number] 60mg Take 1 [facility] nivers XL 60 mg 24 2-09 tablet by [facility]y of hr tablet 00:00: mouth [place] 00 the Medical morning. Branch ergocalcife 2021-04 Yes [id number] TAKE 1 [facility] rol, 2-09 CAPSULE BY ity of vitamin d2, 00:00: MOUTH [place] 1,250 mcg 00 EVERY TWO Medic al (50,000 WEEKS WITH Branch unit) FOOD capsule NIFEdipine 2021-04 Yes [id number] 60mg Take 1 [facility] nivers XL 60 mg 24 2-09 tablet by ity of hr tablet 00:00: mouth [place] 00 the Medical morning. [place] ergocalcife 2021-04 Yes [id number] TAKE 1 [facility] rol, 2-09 CAPSULE BY ity of vitamin d2, 00:00: MOUTH [place] 1,250 mcg 00 EVERY TWO Medic al (50,000 WEEKS WITH Branch unit) FOOD capsule NIFEdipine 2021-04 Yes [id number] 60mg Take 1 [facility] nivers XL 60 mg 24 2-09 tablet by ity of hr tablet 00:00: mouth [place] 00 the Medical morning. [place] ergocalcife 2021-04 Yes [id number] TAKE 1 [facility] rol, 2-09 CAPSULE BY ity of vitamin d2, 00:00: MOUTH [place] 1,250 mcg 00 EVERY TWO Medic al (50,000 WEEKS WITH Branch unit) FOOD capsule NIFEdipine 2021-04 Yes [id number] 60mg Take 1 [facility] n[facility] XL 60 mg 24 2-09 tablet by ity of hr tablet 00:00: mouth [place] 00 the Medical morning. Branch ergocalcife 2021-04 Yes [id number] TAKE 1 [facility] rol, 2-09 CAPSULE BY ity of vitamin d2, 00:00: MOUTH [place] 1,250 mcg 00 EVERY TWO Medic al (50,000 WEEKS WITH Branch unit) FOOD capsule NIFEdipine 2021-04 Yes [id number] 60mg Take 1 [facility] n[facility] XL 60 mg 24 2-09 tablet by ity of hr tablet 00:00: mouth [place] 00 the Medical morning. [place] ergocalcife 2021-04 Yes [id number] TAKE 1 [facility] rol, 2-09 CAPSULE BY ity of vitamin d2, 00:00: MOUTH [place] 1,250 mcg 00 EVERY TWO Medic al (50,000 WEEKS WITH Branch unit) FOOD capsule NIFEdipine 2021-04 Yes [id number] 60mg Take 1 [facility] nivers XL 60 mg 24 2-09 tablet by [facility]y of hr tablet 00:00: mouth [place] 00 the Medical morning. Branch ergocalcife 2021-04 Yes [id number] TAKE 1 [facility] rol, 2-09 CAPSULE BY ity of vitamin d2, 00:00: MOUTH [place] 1,250 mcg 00 EVERY TWO Medic al (50,000 WEEKS WITH Branch unit) FOOD capsule NIFEdipine 2021-04 Yes [id number] 60mg Take 1 [facility] nivers XL 60 mg 24 2-09 tablet by [facility]y of hr tablet 00:00: mouth [place] 00 the Medical morning. [place] ergocalcife 2021-04 Yes [id number] TAKE 1 [facility] rol, 2-09 CAPSULE BY ity of vitamin d2, 00:00: MOUTH [place] 1,250 mcg 00 EVERY TWO Medic al (50,000 WEEKS WITH Branch unit) FOOD capsule NIFEdipine 2021-04 Yes [id number] 60mg Take 1 [facility] nivers XL 60 mg 24 2-09 tablet by ity of hr tablet 00:00: mouth [place] 00 the Medical morning. [place] ergocalcife 2021-04 Yes [id number] TAKE 1 [facility] rol, 2-09 CAPSULE BY ity of vitamin d2, 00:00: MOUTH [place] 1,250 mcg 00 EVERY TWO Medic al (50,000 WEEKS WITH Branch unit) FOOD capsule NIFEdipine 2021-04 Yes [id number] 60mg Take 1 [facility] nivers XL 60 mg 24 2-09 tablet by ity of hr tablet 00:00: mouth [place] 00 the Medical morning. [facility] ergocalcife 2021-04 Yes [id number] TAKE 1 [facility] rol, 2-09 CAPSULE BY ity of vitamin d2, 00:00: MOUTH [place] 1,250 mcg 00 EVERY TWO Medic al (50,000 WEEKS WITH Branch unit) FOOD capsule NIFEdipine 2021-04 Yes [id number] 60mg Take 1 [facility] nivers XL 60 mg 24 2-09 tablet by ity of hr tablet 00:00: mouth [place] 00 the Medical morning. [facility] ergocalcife 2021-04 Yes [id number] TAKE 1 [facility] rol, 2-09 CAPSULE BY ity of vitamin d2, 00:00: MOUTH [place] 1,250 mcg 00 EVERY TWO Medic al (50,000 WEEKS WITH Branch unit) FOOD capsule NIFEdipine 2021-04 Yes [id number] 60mg Take 1 [facility] nivers XL 60 mg 24 2-09 tablet by ity of hr tablet 00:00: mouth [place] 00 the Medical morning. [facility] ergocalcife 2021-04 Yes [id number] TAKE 1 [facility] rol, 2-09 CAPSULE BY ity of vitamin d2, 00:00: MOUTH [place] 1,250 mcg 00 EVERY TWO Medic al (50,000 WEEKS WITH Branch unit) FOOD capsule NIFEdipine 2021-04 Yes [id number] 60mg Take 1 [facility] nivers XL 60 mg 24 2-09 tablet by ity of hr tablet 00:00: mouth [place] 00 the Medical morning. Branch ergocalcife 2021-04 Yes [id number] TAKE 1 [facility] rol, 2-09 CAPSULE BY ity of vitamin d2, 00:00: MOUTH [place] 1,250 mcg 00 EVERY TWO Medic al (50,000 WEEKS WITH Branch unit) FOOD capsule NIFEdipine 2021-04 Yes [id number] 60mg Take 1 [facility] nivers XL 60 mg 24 2-09 tablet by ity of hr tablet 00:00: mouth [place] 00 the Medical morning. Branch ergocalcife 2021-04 Yes [id number] TAKE 1 [facility] rol, 2-09 CAPSULE BY ity of vitamin d2, 00:00: MOUTH [place] 1,250 mcg 00 EVERY TWO Medic al (50,000 WEEKS WITH Branch unit) FOOD capsule NIFEdipine 2021-04 Yes [id number] 60mg Take 1 [facility] nivers XL 60 mg 24 2-09 tablet by ity of hr tablet 00:00: mouth [place] 00 the Medical morning. [facility] ergocalcife 2021-04 Yes [id number] TAKE 1 [facility] rol, 2-09 CAPSULE BY ity of vitamin d2, 00:00: MOUTH [place] 1,250 mcg 00 EVERY TWO Medic al (50,000 WEEKS WITH Branch unit) FOOD capsule NIFEdipine 2021-04 Yes [id number] 60mg Take 1 [facility] nivers XL 60 mg 24 2-09 tablet by ity of hr tablet 00:00: mouth [place] 00 the Medical morning. Branch ergocalcife 2021-04 Yes [id number] TAKE 1 [facility] rol, 2-09 CAPSULE BY ity of vitamin d2, 00:00: MOUTH [place] 1,250 mcg 00 EVERY TWO Medic al (50,000 WEEKS WITH Branch unit) FOOD capsule NIFEdipine 2021-04 Yes [id number] 60mg Take 1 [facility] nivers XL 60 mg 24 2-09 tablet by ity of hr tablet 00:00: mouth [place] 00 the Medical morning. [facility] ergocalcife 2021-04 Yes [id number] TAKE 1 [facility] rol, 2-09 CAPSULE BY ity of vitamin d2, 00:00: MOUTH [place] 1,250 mcg 00 EVERY TWO Medic al (50,000 WEEKS WITH Branch unit) FOOD capsule NIFEdipine 2021-04 Yes [id number] 60mg Take 1 [facility] nivers XL 60 mg 24 2-09 tablet by ity of hr tablet 00:00: mouth [place] 00 the Medical morning. [facility] ergocalcife 2021-04 Yes [id number] TAKE 1 [facility] rol, 2-09 CAPSULE BY ity of vitamin d2, 00:00: MOUTH [place] 1,250 mcg 00 EVERY TWO Medic al (50,000 WEEKS WITH Branch unit) FOOD capsule ergocalcife 2021-04 Yes [id number] TAKE 1 [facility] rol, 2-09 CAPSULE BY ity of vitamin d2, 00:00: MOUTH [place] 1,250 mcg 00 EVERY TWO Medic al (50,000 WEEKS WITH Branch unit) FOOD capsule ergocalcife 2021-04 Yes [id number] TAKE 1 [facility] rol, 2-09 CAPSULE BY ity of vitamin d2, 00:00: MOUTH [place] 1,250 mcg 00 EVERY TWO Medic al (50,000 WEEKS WITH Branch unit) FOOD capsule ergocalcife 2021-04 Yes [id number] TAKE 1 [facility] rol, 2-09 CAPSULE BY ity of vitamin d2, 00:00: MOUTH [place] 1,250 mcg 00 EVERY TWO Medic al (50,000 WEEKS WITH Branch unit) FOOD capsule ergocalcife 2021-04 Yes [id number] TAKE 1 [facility] rol, 2-09 CAPSULE BY ity of vitamin d2, 00:00: MOUTH [place] 1,250 mcg 00 EVERY TWO Medic al (50,000 WEEKS WITH Branch unit) FOOD capsule ergocalcife 2021-04 Yes [id number] TAKE 1 [facility] rol, 2-09 CAPSULE BY ity of vitamin d2, 00:00: MOUTH [place] 1,250 mcg 00 EVERY TWO Medic al (50,000 WEEKS WITH Branch unit) FOOD capsule ergocalcife 2-1 Yes [id number] TAKE 1 [facility] rol, 2-09 CAPSULE BY ity of vitamin d2, 00:00: MOUTH [place] 1,250 mcg 00 EVERY TWO Medic al (50,000 WEEKS WITH Branch unit) FOOD capsule ergocalcife 2-1 Yes [id number] TAKE 1 [facility] rol, 2-09 CAPSULE BY ity of vitamin d2, 00:00: MOUTH [place] 1,250 mcg 00 EVERY TWO Medic al (50,000 WEEKS WITH Branch unit) FOOD capsule ergocalcife 2-1 Yes [id number] TAKE 1 [facility] rol, 2-09 CAPSULE BY ity of vitamin d2, 00:00: MOUTH [place] 1,250 mcg 00 EVERY TWO Medic al (50,000 WEEKS WITH Branch unit) FOOD capsule ergocalcife 2021-1 Yes [id number] TAKE 1 [facility] rol, 2-09 CAPSULE BY ity of vitamin d2, 00:00: MOUTH [place] 1,250 mcg 00 EVERY TWO Medic al (50,000 WEEKS WITH Branch unit) FOOD capsule ergocalcife 2021-1 Yes [id number] TAKE 1 [facility] rol, 2-09 CAPSULE BY ity of vitamin d2, 00:00: MOUTH [place] 1,250 mcg 00 EVERY TWO Medic al (50,000 WEEKS WITH Branch unit) FOOD capsule ergocalcife 2021-1 Yes [id number] TAKE 1 [facility] rol, 2-09 CAPSULE BY ity of vitamin d2, 00:00: MOUTH [place] 1,250 mcg 00 EVERY TWO Medic al (50,000 WEEKS WITH Branch unit) FOOD capsule ergocalcife 2-1 Yes [id number] TAKE 1 [facility] rol, 2-09 CAPSULE BY ity of vitamin d2, 00:00: MOUTH [place] 1,250 mcg 00 EVERY TWO Medic al (50,000 WEEKS WITH Branch unit) FOOD capsule ergocalcife 2-1 Yes [id number] TAKE 1 [facility] rol, 2-09 CAPSULE BY ity of vitamin d2, 00:00: MOUTH [place] 1,250 mcg 00 EVERY TWO Medic al (50,000 WEEKS WITH Branch unit) FOOD capsule ergocalcife 2-1 Yes [id number] TAKE 1 [facility] rol, 2-09 CAPSULE BY ity of vitamin d2, 00:00: MOUTH [place] 1,250 mcg 00 EVERY TWO Medic al (50,000 WEEKS WITH Branch unit) FOOD capsule ergocalcife 2021-1 Yes [id number] TAKE 1 [facility] rol, 2-09 CAPSULE BY ity of vitamin d2, 00:00: MOUTH [place] 1,250 mcg 00 EVERY TWO Medic al (50,000 WEEKS WITH Branch unit) FOOD capsule ergocalcife 2021-1 Yes [id number] TAKE 1 [facility] rol, 2-09 CAPSULE BY ity of vitamin d2, 00:00: MOUTH [place] 1,250 mcg 00 EVERY TWO Medic al (50,000 WEEKS WITH Branch unit) FOOD capsule ergocalcife 2021-1 Yes [id number] TAKE 1 [facility] rol, 2-09 CAPSULE BY ity of vitamin d2, 00:00: MOUTH [place] 1,250 mcg 00 EVERY TWO Medic al (50,000 WEEKS WITH Branch unit) FOOD capsule ergocalcife 2021-1 Yes [id number] TAKE 1 [facility] rol, 2-09 CAPSULE BY ity of vitamin d2, 00:00: MOUTH [place] 1,250 mcg 00 EVERY TWO Medic al (50,000 WEEKS WITH Branch unit) FOOD capsule ergocalcife 2021-1 Yes [id number] TAKE 1 [facility] rol, 2-09 CAPSULE BY ity of vitamin d2, 00:00: MOUTH [place] 1,250 mcg 00 EVERY TWO Medic al (50,000 WEEKS WITH Branch unit) FOOD capsule ergocalcife 2021-1 Yes [id number] TAKE 1 [facility] rol, 2-09 CAPSULE BY ity of vitamin d2, 00:00: MOUTH [place] 1,250 mcg 00 EVERY TWO Medic al (50,000 WEEKS WITH Branch unit) FOOD capsule ergocalcife 2021-1 Yes [id number] TAKE 1 [facility] rol, 2-09 CAPSULE BY ity of vitamin d2, 00:00: MOUTH [place] 1,250 mcg 00 EVERY TWO Medic al (50,000 WEEKS WITH Branch unit) FOOD capsule ergocalcife 2-1 Yes [id number] TAKE 1 [facility] rol, 2-09 CAPSULE BY ity of vitamin d2, 00:00: MOUTH [place] 1,250 mcg 00 EVERY TWO Medic al (50,000 WEEKS WITH Branch unit) FOOD capsule ergocalcife 2021-1 Yes [id number] TAKE 1 [facility] rol, 2-09 CAPSULE BY ity of vitamin d2, 00:00: MOUTH [place] 1,250 mcg 00 EVERY TWO Medic al (50,000 WEEKS WITH Branch unit) FOOD capsule ergocalcife 2-1 Yes [id number] TAKE 1 [facility] rol, 2-09 CAPSULE BY ity of vitamin d2, 00:00: MOUTH [place] 1,250 mcg 00 EVERY TWO Medic al (50,000 WEEKS WITH Branch unit) FOOD capsule ergocalcife 2021-1 Yes [id number] TAKE 1 [facility] rol, 2-09 CAPSULE BY ity of vitamin d2, 00:00: MOUTH [place] 1,250 mcg 00 EVERY TWO Medic al (50,000 WEEKS WITH Branch unit) FOOD capsule ergocalcife 2-1 Yes [id number] TAKE 1 [facility] rol, 2-09 CAPSULE BY ity of vitamin d2, 00:00: MOUTH [place] 1,250 mcg 00 EVERY TWO Medic al (50,000 WEEKS WITH Branch unit) FOOD capsule ergocalcife 2021-1 Yes [id number] TAKE 1 [facility] rol, 2-09 CAPSULE BY ity of vitamin d2, 00:00: MOUTH [place] 1,250 mcg 00 EVERY TWO Medic al (50,000 WEEKS WITH Branch unit) FOOD capsule ergocalcife 2021-1 Yes [id number] TAKE 1 [facility] rol, 2-09 CAPSULE BY ity of vitamin d2, 00:00: MOUTH [place] 1,250 mcg 00 EVERY TWO Medic al (50,000 WEEKS WITH Branch unit) FOOD capsule ergocalcife 2-1 Yes [id number] TAKE 1 [facility] rol, 2-09 CAPSULE BY ity of vitamin d2, 00:00: MOUTH [place] 1,250 mcg 00 EVERY TWO Medic al (50,000 WEEKS WITH Branch unit) FOOD capsule ergocalcife 2-1 Yes [id number] TAKE 1 [facility] rol, 2-09 CAPSULE BY ity of vitamin d2, 00:00: MOUTH [place] 1,250 mcg 00 EVERY TWO Medic al (50,000 WEEKS WITH Branch unit) FOOD capsule ergocalcife 2-1 Yes [id number] TAKE 1 [facility] rol, 2-09 CAPSULE BY ity of vitamin d2, 00:00: MOUTH [place] 1,250 mcg 00 EVERY TWO Medic al (50,000 WEEKS WITH Branch unit) FOOD capsule ergocalcife 2-1 Yes [id number] TAKE 1 [facility] rol, 2-09 CAPSULE BY ity of vitamin d2, 00:00: MOUTH [place] 1,250 mcg 00 EVERY TWO Medic al (50,000 WEEKS WITH Branch unit) FOOD capsule ergocalcife 2021-1 Yes [id number] TAKE 1 [facility] rol, 2-09 CAPSULE BY ity of vitamin d2, 00:00: MOUTH [place] 1,250 mcg 00 EVERY TWO Medic al (50,000 WEEKS WITH Branch unit) FOOD capsule ergocalcife 2021-1 Yes [id number] TAKE 1 [facility] rol, 2-09 CAPSULE BY ity of vitamin d2, 00:00: MOUTH [place] 1,250 mcg 00 EVERY TWO Medic al (50,000 WEEKS WITH Branch unit) FOOD capsule ergocalcife 2021-1 Yes [id number] TAKE 1 [facility] rol, 2-09 CAPSULE BY ity of vitamin d2, 00:00: MOUTH [place] 1,250 mcg 00 EVERY TWO Medic al (50,000 WEEKS WITH Branch unit) FOOD capsule ergocalcife 2021- Yes [id number] TAKE 1 [facility] rol, 2-09 CAPSULE BY ity of vitamin d2, 00:00: MOUTH [place] 1,250 mcg 00 EVERY TWO Medic al (50,000 WEEKS WITH Branch unit) FOOD capsule ergocalcife 2021- Yes [id number] TAKE 1 [facility] rol, 2-09 CAPSULE BY ity of vitamin d2, 00:00: MOUTH [place] 1,250 mcg 00 EVERY TWO Medic al (50,000 WEEKS WITH Branch unit) FOOD capsule ergocalcife 2021-1 Yes [id number] TAKE 1 [facility] rol, 2-09 CAPSULE BY ity of vitamin d2, 00:00: MOUTH [place] 1,250 mcg 00 EVERY TWO Medic al (50,000 WEEKS WITH Branch unit) FOOD capsule ergocalcife 2021-1 Yes [id number] TAKE 1 [facility] rol, 2-09 CAPSULE BY ity of vitamin d2, 00:00: MOUTH [place] 1,250 mcg 00 EVERY TWO Medic al (50,000 WEEKS WITH Branch unit) FOOD capsule ergocalcife 2021-1 Yes [id number] TAKE 1 [facility] rol, 2-09 CAPSULE BY ity of vitamin d2, 00:00: MOUTH [place] 1,250 mcg 00 EVERY TWO Medic al (50,000 WEEKS WITH Branch unit) FOOD capsule ergocalcife 2021-1 Yes [id number] TAKE 1 [facility] rol, 2-09 CAPSULE BY ity of vitamin d2, 00:00: MOUTH [place] 1,250 mcg 00 EVERY TWO Medic al (50,000 WEEKS WITH Branch unit) FOOD capsule ergocalcife 2021-1 Yes [id number] TAKE 1 [facility] rol, 2-09 CAPSULE BY ity of vitamin d2, 00:00: MOUTH [place] 1,250 mcg 00 EVERY TWO Medic al (50,000 WEEKS WITH Branch unit) FOOD capsule ergocalcife 2021-04 Yes [id number] TAKE 1 [facility] rol, 2-09 CAPSULE BY ity of vitamin d2, 00:00: MOUTH [place] 1,250 mcg 00 EVERY TWO Medic al (50,000 WEEKS WITH Branch unit) FOOD capsule ergocalcife 2021-04 Yes [id number] TAKE 1 [facility] rol, 2-09 CAPSULE BY ity of vitamin d2, 00:00: MOUTH [place] 1,250 mcg 00 EVERY TWO Medic al (50,000 WEEKS WITH Branch unit) FOOD capsule ergocalcife 2021-04 Yes [id number] TAKE 1 [facility] rol, 2-09 CAPSULE BY ity of vitamin d2, 00:00: MOUTH [place] 1,250 mcg 00 EVERY TWO Medic al (50,000 WEEKS WITH Branch unit) FOOD capsule ergocalcife 2021-04 Yes [id number] TAKE 1 [facility] rol, 2-09 CAPSULE BY ity of vitamin d2, 00:00: MOUTH [place] 1,250 mcg 00 EVERY TWO Medic al (50,000 WEEKS WITH Branch unit) FOOD capsule ergocalcife 2021-04 Yes [id number] TAKE 1 [facility] rol, 2-09 CAPSULE BY ity of vitamin d2, 00:00: MOUTH [place] 1,250 mcg 00 EVERY TWO Medic al (50,000 WEEKS WITH Branch unit) FOOD capsule ergocalcife 2021-04 Yes [id number] TAKE 1 [facility] rol, 2-09 CAPSULE BY ity of vitamin d2, 00:00: MOUTH [place] 1,250 mcg 00 EVERY TWO Medic al (50,000 WEEKS WITH Branch unit) FOOD capsule ergocalcife 2021-04 Yes [id number] TAKE 1 [facility] rol, 2-09 CAPSULE BY ity of vitamin d2, 00:00: MOUTH [place] 1,250 mcg 00 EVERY TWO Medic al (50,000 WEEKS WITH Branch unit) FOOD capsule NIFEdipine 2021-04- No [id number] 60mg Take 1 [facility] XL 60 mg [...] ity of mg capsule 14:47: 100 mg [place] [address] capsule [facility] 2021-04 Yes Pyl[place] 140 Univers ronidazole- 1-28 mg-125 ity of tetracyclin 14:47: mg-125 mg [place] (PYLERA) 17 capsule Medica l 140-125-125 Branch mg per capsule doxycycline 2021-04 Yes doxycyclin [facility] hyclate 100 - e hyclate ity of mg capsule 14:47: 100 mg [place] [address] capsule [facility] 2021-04 Yes [place] 140 [facility] ronidazole- 1-28 mg-125 ity of tetracyclin 14:47: mg-125 mg [place] (PYLERA) 17 capsule Medica l 140-125-125 Branch mg per capsule doxycycline 2021-04 Yes doxycyclin [facility] hyclate 100 05-11 e hyclate ity of mg capsule 14:47: 100 mg [place] [address] capsule [facility] 2021-04 Yes [place] 140 [facility] ronidazole- 1-28 mg-125 ity of tetracyclin 14:47: mg-125 mg [place] (PYLERA) 17 capsule Medica l 140-125-125 Branch mg per capsule doxycycline 2021-04 Yes doxycyclin [facility] hyclate 100 - e hyclate ity of mg capsule 14:47: [address] 2021-04 Yes Pyl[place] 140 [facility] ronidazole- 1-28 mg-125 ity of tetracyclin 14:47: mg-125 mg [place] (PYLERA) 17 capsule Medica l 140-125-125 Branch mg per capsule doxycycline 2021-04 Yes doxycyclin [facility] hyclate 100 -28 e hyclate ity of mg capsule 14:47: 100 mg [place] [address] capsule [facility] 2021-04 Yes [place] 140 Univers ronidazole- 1-28 mg-125 ity of tetracyclin 14:47: mg-125 mg [place] (PYLERA) 17 capsule Medica l 140-125-125 Branch mg per capsule doxycycline 2021-04 Yes doxycyclin [facility] hyclate 100 05-11 e hyclate ity of mg capsule 14:47: 100 mg [place] [address] capsule [facility] 2021-04 Yes [place] 140 Univers ronidazole- 1-28 mg-125 ity of tetracyclin 14:47: mg-125 mg [place] (PYLERA) 17 capsule Medica l 140-125-125 Branch mg per capsule doxycycline 2021-04 Yes doxycyclin [facility] hyclate 100 05-11 e hyclate ity of mg capsule 14:47: 100 mg [place] [address] capsule [facility] 2021-04 Yes [place] 140 Univers ronidazole- 1-28 mg-125 ity of tetracyclin 14:47: mg-125 mg [place] (PYLERA) 17 capsule Medica l 140-125-125 Branch mg per capsule doxycycline 2021-04 Yes doxycyclin [facility] hyclate 100 05-11 e hyclate ity of mg capsule 14:47: [address] 2021-04 Yes [place] 140 [facility] ronidazole- 1-28 mg-125 ity of tetracyclin 14:47: mg-125 mg [place] (PYLERA) capsule Medica l 140-125-125 Branch mg per capsule doxycycline 2021-04 Yes doxycyclin [facility] hyclate 100 05-11 e hyclate ity of mg capsule 14:47: [address] 2021-04 Yes [place] 140 [facility] ronidazole- 1-28 mg-125 ity of tetracyclin 14:47: mg-125 mg [place] (PYLERA) 17 capsule Medica l 140-125-125 Branch mg per capsule doxycycline 2021-04 Yes doxycyclin [facility] hyclate 100 05-11 e hyclate ity of mg capsule 14:47: [address] 2021-04 Yes [place] 140 [facility] ronidazole- 1-28 mg-125 ity of tetracyclin 14:47: mg-125 mg [place] (PYLERA) 17 capsule Medica l 140-125-125 Branch mg per capsule doxycycline 2021-04 Yes doxycyclin [facility] hyclate 100 05-11 e hyclate ity of mg capsule 14:47: [address] 2021-04 Yes [place] 140 [facility] ronidazole- 1-28 mg-125 ity of tetracyclin 14:47: mg-125 mg [place] (PYLERA) 17 capsule Medica l 140-125-125 Branch mg per capsule doxycycline 2021-04 Yes doxycyclin [facility] hyclate 100 05-11 e hyclate ity of mg capsule 14:47: [address] 2021-04 Yes [place] 140 [facility] ronidazole- 1-28 mg-125 ity of tetracyclin 14:47: mg-125 mg [place] (PYLERA) 17 capsule Medica l 140-125-125 Branch mg per capsule doxycycline 2021-04 Yes doxycyclin [facility] hyclate 100 05-11 e hyclate ity of mg capsule 14:47: [address] 2021-04 Yes [place] 140 [facility] ronidazole- 1-28 mg-125 ity of tetracyclin 14:47: mg-125 mg [place] (PYLERA) 17 capsule Medica l 140-125-125 Branch mg per capsule doxycycline 2021-04 Yes doxycyclin [facility] hyclate 100 05-11 e hyclate ity of mg capsule 14:47: [address] 2021-04 Yes [place] 140 [facility] ronidazole- 1-28 mg-125 ity of tetracyclin 14:47: mg-125 mg [place] (PYLERA) 17 capsule Medica l 140-125-125 Branch mg per capsule doxycycline 2021-04 Yes doxycyclin [facility] hyclate 100 05-11 e hyclate ity of mg capsule 14:47: [address] 2021-04 Yes [place] 140 [facility] ronidazole- 1-28 mg-125 ity of tetracyclin 14:47: mg-125 mg [place] (PYLERA) 17 capsule Medica l 140-125-125 Branch mg per capsule doxycycline 2021-04 Yes doxycyclin [facility] hyclate 100 - e hyclate ity of mg capsule 14:47: [address] 2021-04 Yes [place] 140 [facility] ronidazole- 1-28 mg-125 ity of tetracyclin 14:47: mg-125 mg [place] (PYLERA) 17 capsule Medica l 140-125-125 Branch mg per capsule doxycycline 2021-04 Yes doxycyclin [facility] hyclate 100 -28 e hyclate ity of mg capsule 14:47: [address] 2021-04 Yes [place] 140 [facility] ronidazole- 1-28 mg-125 ity of tetracyclin 14:47: mg-125 mg [place] (PYLERA) 17 capsule Medica l 140-125-125 Branch mg per capsule doxycycline 2021-04 Yes doxycyclin [facility] hyclate 100 - e hyclate ity of mg capsule 14:47: [address] 2021-04 Yes [place] 140 [facility] ronidazole- 1-28 mg-125 ity of tetracyclin 14:47: mg-125 mg [place] (PYLERA) 17 capsule Medica l 140-125-125 Branch mg per capsule doxycycline 2021-04 Yes doxycyclin [facility] hyclate 100 -28 e hyclate ity of mg capsule 14:47: [address] 2021-04 Yes [place] 140 [facility] ronidazole- 1-28 mg-125 ity of tetracyclin 14:47: mg-125 mg [place] (PYLERA) 17 capsule Medica l 140-125-125 Branch mg per capsule doxycycline 2021-04 Yes doxycyclin [facility] hyclate 100 -28 e hyclate ity of mg capsule 14:47: 100 mg [place] [address] capsule [facility] 2021-04 Yes [place] 140 Univers ronidazole- 1-28 mg-125 ity of tetracyclin 14:47: mg-125 mg [place] (PYLERA) 17 capsule Medica l 140-125-125 Branch mg per capsule doxycycline 2021-04 Yes doxycyclin [facility] hyclate 100 -28 e hyclate ity of mg capsule 14:47: [address] 2021-04 Yes [place] 140 [facility] ronidazole- 1-28 mg-125 ity of tetracyclin 14:47: mg-125 mg [place] (PYLERA) 17 capsule Medica l 140-125-125 Branch mg per capsule doxycycline 2021-04 Yes doxycyclin Univers hyclate 100 1-28 e hyclate ity of mg capsule 14:47: 100 mg [place] [address] capsule [facility] 2021-04 Yes [place] 140 Univers ronidazole- 1-28 mg-125 ity of tetracyclin 14:47: mg-125 mg [place] (PYLERA) 17 capsule Medica l 140-125-125 Branch mg per capsule doxycycline 2021-04 Yes doxycyclin [facility] hyclate 100 - e hyclate ity of mg capsule 14:47: [address] 2021-04 Yes [place] 140 [facility] ronidazole- 1-28 mg-125 ity of tetracyclin 14:47: mg-125 mg [place] (PYLERA) capsule Medica l 140-125-125 Branch mg per capsule doxycycline 2021-04 Yes doxycyclin [facility] hyclate 100 05-11 e hyclate ity of mg capsule 14:47: [address] 2021-04 Yes [place] 140 [facility] ronidazole- 1-28 mg-125 ity of tetracyclin 14:47: mg-125 mg [place] (PYLERA) 17 capsule Medica l 140-125-125 Branch mg per capsule doxycycline 2021-04 Yes doxycyclin [facility] hyclate 100 -28 e hyclate ity of mg capsule 14:47: [address] 2021-04 Yes [place] 140 [facility] ronidazole- 1-28 mg-125 ity of tetracyclin 14:47: mg-125 mg [place] (PYLERA) 17 capsule Medica l 140-125-125 Branch mg per capsule doxycycline 2021-04 Yes doxycyclin [facility] hyclate 100 -28 e hyclate ity of mg capsule 14:47: 100 mg [place] [address] capsule [facility] 2021-04 Yes [place] 140 [facility] ronidazole- 1-28 mg-125 ity of tetracyclin 14:47: mg-125 mg [place] (PYLERA) 17 capsule Medica l 140-125-125 Branch mg per capsule doxycycline 2021-04 Yes doxycyclin [facility] hyclate 100 1-28 e hyclate ity of mg capsule 14:47: 100 mg [place] 17 capsule [facility] 2021-04 Yes [place] 140 Univers ronidazole- 1-28 mg-125 ity of tetracyclin 14:47: mg-125 mg [place] (PYLERA) 17 capsule Medica l 140-125-125 Branch mg per capsule doxycycline 2021-04 Yes doxycyclin [facility] hyclate 100 1-28 e hyclate ity of mg capsule 14:47: 100 mg [place] [address] capsule [facility] 2021-04 Yes [place] 140 Univers ronidazole- 1-28 mg-125 ity of tetracyclin 14:47: mg-125 mg [place] (PYLERA) 17 capsule Medica l 140-125-125 Branch mg per [facility]04 Yes P[place] 140 [facility] ronidazole- 1-28 mg-125 ity of tetracyclin 14:47: mg-125 mg [place] (PYLERA) 17 capsule Medica l 140-125-125 Branch mg per capsule gabapentin 2021-04 Yes [id number] 100mg Take 1 [facility] 100 mg 1-28 capsule by ity of capsule 00:00: mouth in [address] and 1 capsule at noon and 1 capsule in the evening. gabapentin 2021-04 Yes [id number] 100mg Take 1 [facility] 100 mg 1-28 capsule by ity of capsule 00:00: mouth in [address] and 1 capsule at noon and 1 capsule in the evening. gabapentin 2021-04 Yes [id number] 100mg Take 1 [facility] 100 mg 1-28 capsule by ity of capsule 00:00: mouth in [address] and 1 capsule at noon and 1 capsule in the evening. gabapentin 2021-04 Yes [id number] 100mg Take 1 [facility] 100 mg 1-28 capsule by ity of capsule 00:00: mouth in [address] and 1 capsule at noon and 1 capsule in the evening. gabapentin 2021-04 Yes [id number] 100mg Take 1 [facility] 100 mg 1-28 capsule by ity of capsule 00:00: mouth in [address] morning [place] and 1 capsule at noon and 1 capsule in the evening. gabapentin 2021- Yes [id number] 100mg Take 1 [facility] 100 mg 1-28 capsule by ity of capsule 00:00: mouth in [address] and 1 capsule at noon and 1 capsule in the evening. gabapentin 202- Yes [id number] 100mg Take 1 [facility] 100 mg 1-28 capsule by ity of capsule 00:00: mouth in [address] and 1 capsule at noon and 1 capsule in the evening. gabapentin 2021- Yes [id number] 100mg Take 1 [facility] 100 mg 1-28 capsule by ity of capsule 00:00: mouth in [address] and 1 capsule at noon and 1 capsule in the evening. gabapentin 2021- Yes [id number] 100mg Take 1 [facility] 100 mg 1-28 capsule by ity of capsule 00:00: mouth in [address] and 1 capsule at noon and 1 capsule in the evening. gabapentin 2021- Yes [id number] 100mg Take 1 [facility] 100 mg 1-28 capsule by ity of capsule 00:00: mouth in [address] and 1 capsule at noon and 1 capsule in the evening. gabapentin 2021- Yes [id number] 100mg Take 1 [facility] 100 mg 1-28 capsule by ity of capsule 00:00: mouth in [address] and 1 capsule at noon and 1 capsule in the evening. gabapentin 2021- Yes [id number] 100mg Take 1 [facility] 100 mg 1-28 capsule by ity of capsule 00:00: mouth in [address] and 1 capsule at noon and 1 capsule in the evening. gabapentin 2021- Yes [id number] 100mg Take 1 [facility] 100 mg 1-28 capsule by ity of capsule 00:00: mouth in [address] and 1 capsule at noon and 1 capsule in the evening. gabapentin 2021-1 Yes [id number] 100mg Take 1 [facility] 100 mg 1-28 capsule by ity of capsule 00:00: mouth in [address] and 1 capsule at noon and 1 capsule in the evening. gabapentin 202-1 Yes [id number] 100mg Take 1 [facility] 100 mg 1-28 capsule by ity of capsule 00:00: mouth in [address] morning [place] and 1 capsule at noon and 1 capsule in the evening. gabapentin 2021- Yes [id number] 100mg Take 1 [facility] 100 mg 1-28 capsule by ity of capsule 00:00: mouth in [address] and 1 capsule at noon and 1 capsule in the evening. gabapentin 202- Yes [id number] 100mg Take 1 [facility] 100 mg 1-28 capsule by ity of capsule 00:00: mouth in [address] and 1 capsule at noon and 1 capsule in the evening. gabapentin 2021- Yes [id number] 100mg Take 1 [facility] 100 mg 1-28 capsule by ity of capsule 00:00: mouth in [address] and 1 capsule at noon and 1 capsule in the evening. gabapentin 2021- Yes [id number] 100mg Take 1 [facility] 100 mg 1-28 capsule by ity of capsule 00:00: mouth in [address] and 1 capsule at noon and 1 capsule in the evening. gabapentin 2021- Yes [id number] 100mg Take 1 [facility] 100 mg 1-28 capsule by ity of capsule 00:00: mouth in [address] and 1 capsule at noon and 1 capsule in the evening. gabapentin 2021- Yes [id number] 100mg Take 1 [facility] 100 mg 1-28 capsule by ity of capsule 00:00: mouth in [address] and 1 capsule at noon and 1 capsule in the evening. gabapentin 2021- Yes [id number] 100mg Take 1 [facility] 100 mg 1-28 capsule by ity of capsule 00:00: mouth in [address] and 1 capsule at noon and 1 capsule in the evening. gabapentin 2021- Yes [id number] 100mg Take 1 [facility] 100 mg 1-28 capsule by ity of capsule 00:00: mouth in [address] and 1 capsule at noon and 1 capsule in the evening. gabapentin 2021-1 Yes [id number] 100mg Take 1 [facility] 100 mg 1-28 capsule by ity of capsule 00:00: mouth in [address] and 1 capsule at noon and 1 capsule in the evening. gabapentin 202-1 Yes [id number] 100mg Take 1 [facility] 100 mg 1-28 capsule by ity of capsule 00:00: mouth in [address] morning [place] and 1 capsule at noon and 1 capsule in the evening. gabapentin 2021- Yes [id number] 100mg Take 1 [facility] 100 mg 1-28 capsule by ity of capsule 00:00: mouth in [address] and 1 capsule at noon and 1 capsule in the evening. gabapentin 202- Yes [id number] 100mg Take 1 [facility] 100 mg 1-28 capsule by ity of capsule 00:00: mouth in [address] and 1 capsule at noon and 1 capsule in the evening. gabapentin 2021- Yes [id number] 100mg Take 1 [facility] 100 mg 1-28 capsule by ity of capsule 00:00: mouth in [address] and 1 capsule at noon and 1 capsule in the evening. gabapentin 2021- Yes [id number] 100mg Take 1 [facility] 100 mg 1-28 capsule by ity of capsule 00:00: mouth in [address] and 1 capsule at noon and 1 capsule in the evening. gabapentin 2021- Yes [id number] 100mg Take 1 [facility] 100 mg 1-28 capsule by ity of capsule 00:00: mouth in [address] and 1 capsule at noon and 1 capsule in the evening. gabapentin 2021- Yes [id number] 100mg Take 1 [facility] 100 mg 1-28 capsule by ity of capsule 00:00: mouth in [address] and 1 capsule at noon and 1 capsule in the evening. gabapentin 2021- Yes [id number] 100mg Take 1 [facility] 100 mg 1-28 capsule by ity of capsule 00:00: mouth in [address] and 1 capsule at noon and 1 capsule in the evening. gabapentin 2021- Yes [id number] 100mg Take 1 [facility] 100 mg 1-28 capsule by ity of capsule 00:00: mouth in [address] and 1 capsule at noon and 1 capsule in the evening. gabapentin 2021-1 Yes [id number] 100mg Take 1 [facility] 100 mg 1-28 capsule by ity of capsule 00:00: mouth in [address] and 1 capsule at noon and 1 capsule in the evening. gabapentin 202-1 Yes [id number] 100mg Take 1 [facility] 100 mg 1-28 capsule by ity of capsule 00:00: mouth in [address] morning [place] and 1 capsule at noon and 1 capsule in the evening. gabapentin 2021- Yes [id number] 100mg Take 1 [facility] 100 mg 1-28 capsule by ity of capsule 00:00: mouth in [address] and 1 capsule at noon and 1 capsule in the evening. gabapentin 202- Yes [id number] 100mg Take 1 [facility] 100 mg 1-28 capsule by ity of capsule 00:00: mouth in [address] and 1 capsule at noon and 1 capsule in the evening. gabapentin 2021- Yes [id number] 100mg Take 1 [facility] 100 mg 1-28 capsule by ity of capsule 00:00: mouth in [address] and 1 capsule at noon and 1 capsule in the evening. gabapentin 2021- Yes [id number] 100mg Take 1 [facility] 100 mg 1-28 capsule by ity of capsule 00:00: mouth in [address] and 1 capsule at noon and 1 capsule in the evening. gabapentin 2021- Yes [id number] 100mg Take 1 [facility] 100 mg 1-28 capsule by ity of capsule 00:00: mouth in [address] and 1 capsule at noon and 1 capsule in the evening. gabapentin 2021- Yes [id number] 100mg Take 1 [facility] 100 mg 1-28 capsule by ity of capsule 00:00: mouth in [address] and 1 capsule at noon and 1 capsule in the evening. gabapentin 2021- Yes [id number] 100mg Take 1 [facility] 100 mg 1-28 capsule by ity of capsule 00:00: mouth in [address] and 1 capsule at noon and 1 capsule in the evening. gabapentin 2021- Yes [id number] 100mg Take 1 [facility] 100 mg 1-28 capsule by ity of capsule 00:00: mouth in [address] and 1 capsule at noon and 1 capsule in the evening. gabapentin 2021-1 Yes [id number] 100mg Take 1 [facility] 100 mg 1-28 capsule by ity of capsule 00:00: mouth in [address] and 1 capsule at noon and 1 capsule in the evening. gabapentin 202-1 Yes [id number] 100mg Take 1 [facility] 100 mg 1-28 capsule by ity of capsule 00:00: mouth in [address] morning [place] and 1 capsule at noon and 1 capsule in the evening. gabapentin 2021- Yes [id number] 100mg Take 1 [facility] 100 mg 1-28 capsule by ity of capsule 00:00: mouth in [address] and 1 capsule at noon and 1 capsule in the evening. gabapentin 202- Yes [id number] 100mg Take 1 [facility] 100 mg 1-28 capsule by ity of capsule 00:00: mouth in [address] and 1 capsule at noon and 1 capsule in the evening. gabapentin 2021- Yes [id number] 100mg Take 1 [facility] 100 mg 1-28 capsule by ity of capsule 00:00: mouth in [address] and 1 capsule at noon and 1 capsule in the evening. gabapentin 2021- Yes [id number] 100mg Take 1 [facility] 100 mg 1-28 capsule by ity of capsule 00:00: mouth in [address] and 1 capsule at noon and 1 capsule in the evening. gabapentin 2021- Yes [id number] 100mg Take 1 [facility] 100 mg 1-28 capsule by ity of capsule 00:00: mouth in [address] and 1 capsule at noon and 1 capsule in the evening. gabapentin 2021- Yes [id number] 100mg Take 1 [facility] 100 mg 1-28 capsule by ity of capsule 00:00: mouth in [address] and 1 capsule at noon and 1 capsule in the evening. gabapentin 2021- Yes [id number] 100mg Take 1 [facility] 100 mg 1-28 capsule by ity of capsule 00:00: mouth in [address] and 1 capsule at noon and 1 capsule in the evening. gabapentin 2021- Yes [id number] 100mg Take 1 [facility] 100 mg 1-28 capsule by ity of capsule 00:00: mouth in [address] and 1 capsule at noon and 1 capsule in the evening. gabapentin 2021-1 Yes [id number] 100mg Take 1 [facility] 100 mg 1-28 capsule by ity of capsule 00:00: mouth in [address] and 1 capsule at noon and 1 capsule in the evening. gabapentin 202-1 Yes [id number] 100mg Take 1 [facility] 100 mg 1-28 capsule by ity of capsule 00:00: mouth in [address] morning [place] and 1 capsule at noon and 1 capsule in the evening. gabapentin 2021- Yes [id number] 100mg Take 1 [facility] 100 mg 1-28 capsule by ity of capsule 00:00: mouth in [address] and 1 capsule at noon and 1 capsule in the evening. gabapentin 202- Yes [id number] 100mg Take 1 [facility] 100 mg 1-28 capsule by ity of capsule 00:00: mouth in [address] and 1 capsule at noon and 1 capsule in the evening. gabapentin 2021- Yes [id number] 100mg Take 1 [facility] 100 mg 1-28 capsule by ity of capsule 00:00: mouth in [address] and 1 capsule at noon and 1 capsule in the evening. gabapentin 2021- Yes [id number] 100mg Take 1 [facility] 100 mg 1-28 capsule by ity of capsule 00:00: mouth in [address] and 1 capsule at noon and 1 capsule in the evening. gabapentin 2021- Yes [id number] 100mg Take 1 [facility] 100 mg 1-28 capsule by ity of capsule 00:00: mouth in [address] and 1 capsule at noon and 1 capsule in the evening. gabapentin 2021- Yes [id number] 100mg Take 1 [facility] 100 mg 1-28 capsule by ity of capsule 00:00: mouth in [address] and 1 capsule at noon and 1 capsule in the evening. gabapentin 2021- Yes [id number] 100mg Take 1 [facility] 100 mg 1-28 capsule by ity of capsule 00:00: mouth in [address] and 1 capsule at noon and 1 capsule in the evening. gabapentin 2021- Yes [id number] 100mg Take 1 [facility] 100 mg 1-28 capsule by ity of capsule 00:00: mouth in [address] and 1 capsule at noon and 1 capsule in the evening. gabapentin 2021-1 Yes [id number] 100mg Take 1 [facility] 100 mg 1-28 capsule by ity of capsule 00:00: mouth in [address] and 1 capsule at noon and 1 capsule in the evening. gabapentin 202-1 Yes [id number] 100mg Take 1 [facility] 100 mg 1-28 capsule by ity of capsule 00:00: mouth in [place] [address] the Medical morning Branch and 1 capsule at noon and 1 capsule in the evening. gabapentin 2021-04 Yes [id number] 100mg Take 1 [facility] 100 mg 1-28 capsule by ity of capsule 00:00: mouth in [place] 00 the Medical morning Branch and 1 capsule at noon and 1 capsule in the evening. gabapentin 2021-04 Yes [id number] 100mg Take 1 [facility] 100 mg 1-28 capsule by ity of capsule 00:00: mouth in [place] [address] the Medical morning Branch and 1 capsule at noon and 1 capsule in the evening. gabapentin 2021-04 Yes [id number] 100mg Take 1 [facility] 100 mg 1-28 capsule by ity of capsule 00:00: mouth in [place] [address] the Medical morning Branch and 1 capsule at noon and 1 capsule in the evening. gabapentin 2021-04 Yes [id number] 100mg Take 1 [facility] 100 mg 1-28 capsule by ity of capsule 00:00: mouth in [place] [address] the Medical morning [place] and 1 capsule at noon and 1 capsule in the evening. gabapentin 2021-04 Yes [id number] 100mg Take 1 [facility] 100 mg 1-28 capsule by ity of capsule 00:00: mouth in [place] [address] the Medical morning [place] and 1 capsule at noon and 1 capsule in the evening. gabapentin 2021-04- No [id number] 100mg Take 1 [facility] 100 mg 1-28 07-07 capsule by ity of capsule 00:00: 00:00 mouth in [place] 00 :00 the Medical morning [place] and 1 capsule at noon and 1 capsule in the evening. gabapentin 2021-04- No [id number] 100mg Take 1 [facility] 100 mg 1-28 07-07 capsule by ity of capsule 00:00: 00:00 mouth in [place] 00 :00 the Medical morning [place] and 1 capsule at noon and 1 capsule in the evening. benzonatate 2021-04- No [id number] 200mg Take 1 [facility] 200 mg 1-03 11-14 capsule by ity of capsule 00:00: 05:59 mouth 3 [place] 00 :00 (three) Medical times [place] daily as needed for Cough for up to 10 days. methylPREDN 2021-04 Yes [id number] Take by [facility] ISolone 0-27 mouth ity of (MEDROL, 00:00: SEE-INSTRU [place],) 4 mg 00 CTIONS. Medica l tablets follow Branch package directions methylPREDN 2021-1 Yes [id number] Take by [facility] ISolone 0-27 mouth ity of (MEDROL, 00:00: SEE-INSTRU [place],) 4 mg 00 CTIONS. Medica l tablets follow Branch package directions methylPREDN 2021-1 Yes [id number] Take by [facility] ISolone 0-27 mouth ity of (MEDROL, 00:00: SEE-INSTRU [place],) 4 mg 00 CTIONS. Medica l tablets follow Branch package directions methylPREDN 2021-1 Yes [id number] Take by [facility] ISolone 0-27 mouth ity of (MEDROL, 00:00: SEE-INSTRU [place],) 4 mg 00 CTIONS. Medica l tablets follow Branch package directions methylPREDN 2021-1 Yes [id number] Take by [facility] ISolone 0-27 mouth ity of (MEDROL, 00:00: SEE-INSTRU [place],) 4 mg 00 CTIONS. Medica l tablets follow Branch package directions methylPREDN 2021- Yes [id number] Take by [facility] ISolone 0-27 mouth ity of (MEDROL, 00:00: SEE-INSTRU [place],) 4 mg 00 CTIONS. Medica l tablets follow Branch package directions methylPREDN 2021-1 Yes [id number] Take by [facility] ISolone 0-27 mouth ity of (MEDROL, 00:00: SEE-INSTRU [place],) 4 mg 00 CTIONS. Medica l tablets follow Branch package directions methylPREDN 2021-1 Yes [id number] Take by [facility] ISolone 0-27 mouth ity of (MEDROL, 00:00: SEE-INSTRU [place],) 4 mg 00 CTIONS. Medica l tablets follow Branch package directions methylPREDN 2021-1 Yes [id number] Take by [facility] ISolone 0-27 mouth ity of (MEDROL, 00:00: SEE-INSTRU [place],) 4 mg 00 CTIONS. Medica l tablets follow Branch package directions methylPREDN 2021-1 Yes [id number] Take by [facility] ISolone 0-27 mouth ity of (MEDROL, 00:00: SEE-INSTRU [place],) 4 mg 00 CTIONS. Medica l tablets follow Branch package directions methylPREDN 2022- Yes [id number] Take by [facility] ISolone 0-27 mouth ity of (MEDROL, 00:00: SEE-INSTRU [place],) 4 mg 00 CTIONS. Medica l tablets follow Branch package directions methylPREDN 2021- Yes [id number] Take by [facility] ISolone 0-27 mouth ity of (MEDROL, 00:00: SEE-INSTRU [place],) 4 mg 00 CTIONS. Medica l tablets follow Branch package directions methylPREDN 2021- Yes [id number] Take by [facility] ISolone 0-27 mouth ity of (MEDROL, 00:00: SEE-INSTRU [place],) 4 mg 00 CTIONS. Medica l tablets follow Branch package directions methylPREDN 2021- Yes [id number] Take by [facility] ISolone 0-27 mouth ity of (MEDROL, 00:00: SEE-INSTRU [place],) 4 mg 00 CTIONS. Medica l tablets follow Branch package directions methylPREDN 2021- Yes [id number] Take by [facility] ISolone 0-27 mouth ity of (MEDROL, 00:00: SEE-INSTRU [place],) 4 mg 00 CTIONS. Medica l tablets follow Branch package directions methylPREDN 2021- Yes [id number] Take by [facility] ISolone 0-27 mouth ity of (MEDROL, 00:00: SEE-INSTRU [place],) 4 mg 00 CTIONS. Medica l tablets follow Branch package directions methylPREDN 2021- Yes [id number] Take by [facility] ISolone 0-27 mouth ity of (MEDROL, 00:00: SEE-INSTRU [place],) 4 mg 00 CTIONS. Medica l tablets follow Branch package directions methylPREDN 2021- Yes [id number] Take by [facility] ISolone 0-27 mouth ity of (MEDROL, 00:00: SEE-INSTRU [place],) 4 mg 00 CTIONS. Medica l tablets follow Branch package directions methylPREDN 2021-1 Yes [id number] Take by [facility] ISolone 0-27 mouth ity of (MEDROL, 00:00: SEE-INSTRU [place],) 4 mg 00 CTIONS. Medica l tablets follow Branch package directions methylPREDN 2021- Yes [id number] Take by [facility] ISolone 0-27 mouth ity of (MEDROL, 00:00: SEE-INSTRU [place],) 4 mg 00 CTIONS. Medica l tablets follow Branch package directions methylPREDN 2021- Yes [id number] Take by [facility] ISolone 0-27 mouth ity of (MEDROL, 00:00: SEE-INSTRU [place],) 4 mg 00 CTIONS. Medica l tablets follow Branch package directions methylPREDN 2021- Yes [id number] Take by [facility] ISolone 0-27 mouth ity of (MEDROL, 00:00: SEE-INSTRU [place],) 4 mg 00 CTIONS. Medica l tablets follow Branch package directions methylPREDN 2021- Yes [id number] Take by [facility] ISolone 0-27 mouth ity of (MEDROL, 00:00: SEE-INSTRU [place],) 4 mg 00 CTIONS. Medica l tablets follow Branch package directions methylPREDN 2021- Yes [id number] Take by [facility] ISolone 0-27 mouth ity of (MEDROL, 00:00: SEE-INSTRU [place],) 4 mg 00 CTIONS. Medica l tablets follow Branch package directions methylPREDN 2021-1 Yes [id number] Take by [facility] ISolone 0-27 mouth ity of (MEDROL, 00:00: SEE-INSTRU [place],) 4 mg 00 CTIONS. Medica l tablets follow Branch package directions methylPREDN 2021-1 Yes [id number] Take by [facility] ISolone 0-27 mouth ity of (MEDROL, 00:00: SEE-INSTRU [place],) 4 mg 00 CTIONS. Medica l tablets follow Branch package directions methylPREDN 2021-1 Yes [id number] Take by [facility] ISolone 0-27 mouth ity of (MEDROL, 00:00: SEE-INSTRU [place],) 4 mg 00 CTIONS. Medica l tablets follow Branch package directions methylPREDN 2021-1 Yes [id number] Take by [facility] ISolone 0-27 mouth ity of (MEDROL, 00:00: SEE-INSTRU [place],) 4 mg 00 CTIONS. Medica l tablets follow Branch package directions methylPREDN 2021-1 Yes [id number] Take by [facility] ISolone 0-27 mouth ity of (MEDROL, 00:00: SEE-INSTRU [place],) 4 mg 00 CTIONS. Medica l tablets follow Branch package directions methylPREDN 2021- Yes [id number] Take by [facility] ISolone 0-27 mouth ity of (MEDROL, 00:00: SEE-INSTRU [place],) 4 mg 00 CTIONS. Medica l tablets follow Branch package directions methylPREDN 2021-04 Yes [id number] Take by [facility] ISolone 0-27 mouth ity of (MEDROL, 00:00: SEE-INSTRU [place],) 4 mg 00 CTIONS. Medica l tablets follow Branch package directions methylPREDN 2021- Yes [id number] Take by [facility] ISolone 0-27 mouth ity of (MEDROL, 00:00: SEE-INSTRU [place],) 4 mg 00 CTIONS. Medica l tablets follow Branch package directions methylPREDN 2021-04 Yes [id number] Take by [facility] ISolone 0-27 mouth ity of (MEDROL, 00:00: SEE-INSTRU [place],) 4 mg 00 CTIONS. Medica l tablets follow Branch package directions methylPREDN 2021-04 Yes [id number] Take by [facility] ISolone 0-27 mouth ity of (MEDROL, 00:00: SEE-INSTRU [place],) 4 mg 00 CTIONS. Medica l tablets follow Branch package directions methylPREDN 2021-1 Yes [id number] Take by [facility] ISolone 0-27 mouth ity of (MEDROL, 00:00: SEE-INSTRU [place],) 4 mg 00 CTIONS. Medica l tablets follow Branch package directions methylPREDN 2021-1 Yes [id number] Take by [facility] ISolone 0-27 mouth ity of (MEDROL, 00:00: SEE-INSTRU [place],) 4 mg 00 CTIONS. Medica l tablets follow Branch package directions methylPREDN 2021- Yes [id number] Take by [facility] ISolone 0-27 mouth ity of (MEDROL, 00:00: SEE-INSTRU [place],) 4 mg 00 CTIONS. Medica l tablets follow Branch package directions methylPREDN 2021-04 2023- No [id number] Take by [facility] ISolone 0-27 02-18 mouth ity of (MEDROL, 00:00: 00:00 SEE-INSTRU [place],) 4 mg 00 :00 CTIONS. Medica l tablets follow Branch package directions azithromyci 2021-04 Yes [id number] Z-[facility] = [facility] n 0-25 500 mg day ity of (ZITHROMAX 00:00[place] 250 00 250 mg Medical mg tablet days 2 to Branc h 5. Z-Steven = 500mg day 1, then 250mg days 2 to 5. fluticasone 2021-04 Yes [id number] 1{spray Use 1 [facility] propionate 0-25 } [place] in ity o f 50 00:00: each [place] mcg/actuati 00 nostril in Me dical on nasal the Branch spray morning. azelastine 2021-04 Yes [id number] 1{spray Use 1 [facility] 137 mcg 0-25 } [place] in ity of (0.1 %) 00:00: each [place] nasal spray 00 nostril in Me dical the Branch morning and 1 [place] in the evening. Use in each nostril as directed guaiFENesin 2021-04 Yes [id number] 400mg Take 1 [facility] 400 mg 0-25 tablet by ity of tablet 00:00: mouth [place] 00 every 4 Medical (four) Branch hours as needed for Cough. azithromyci 2021-04 Yes [id number] Z-Steven = [facility] n 0-25 500 mg day ity of (ZITHROMAX 00:00: [place] [facility] 250 00 250 mg Medical mg tablet days 2 to Branc h 5. Z-Steven = 500mg day 1, then 250mg days 2 to 5. fluticasone 2021-04 Yes [id number] 1{spray Use 1 [facility] propionate 0-25 } [place] in ity o f 50 00:00: each [place] mcg/actuati 00 nostril in Me dical on nasal the Branch spray morning. azelastine 2021-04 Yes [id number] 1{spray Use 1 [facility] 137 mcg 0-25 } [place] in ity of (0.1 %) 00:00: each [place] nasal spray 00 nostril in Me dical the Branch morning and 1 [place] in the evening. Use in each nostril as directed guaiFENesin 2021-04 Yes [id number] 400mg Take 1 [facility] 400 mg 0-25 tablet by ity of tablet 00:00: mouth [place] 00 every 4 Medical (four) Branch hours as needed for Cough. azithromyci 2021-04 Yes [id number] Z-[facility] = [facility] n 0-25 500 mg day ity of (ZITHROMAX 00:00: [place] 250 00 250 mg Medical mg tablet days 2 to Branc h 5. Z-Steven = 500mg day 1, then 250mg days 2 to 5. fluticasone 2021-04 Yes [id number] 1{spray Use 1 [facility] propionate 0-25 } [place] in ity o f 50 00:00: each [place] mcg/actuati 00 nostril in Me dical on nasal the Branch spray morning. azelastine 2021-04 Yes [id number] 1{spray Use 1 [facility] 137 mcg 0-25 } [place] in ity of (0.1 %) 00:00: each [place] nasal spray 00 nostril in Me dical the Branch morning and 1 [place] in the evening. Use in each nostril as directed guaiFENesin 2021-04 Yes [id number] 400mg Take 1 [facility] 400 mg 0-25 tablet by ity of tablet 00:00: mouth [place] 00 every 4 Medical (four) Branch hours as needed for Cough. azithromyci 2021-04 Yes [id number] Z-[facility] = [facility] n 0-25 500 mg day ity of (ZITHROMAX 00:00: [place] [facility] 250 00 250 mg Medical mg tablet days 2 to Branc h 5. Z-Steven = 500mg day 1, then 250mg days 2 to 5. fluticasone 2021-04 Yes [id number] 1{spray Use 1 [facility] propionate 0-25 } [place] in ity o f 50 00:00: each [place] mcg/actuati 00 nostril in Me dical on nasal the Branch spray morning. azelastine 2021-04 Yes [id number] 1{spray Use 1 [facility] 137 mcg 0-25 } [place] in ity of (0.1 %) 00:00: each [place] nasal spray 00 nostril in Me dical the Branch morning and 1 [place] in the evening. Use in each nostril as directed guaiFENesin 2021-04 Yes [id number] 400mg Take 1 [facility] 400 mg 0-25 tablet by ity of tablet 00:00: mouth [place] 00 every 4 Medical (four) Branch hours as needed for Cough. azithromyci 2021-04 Yes [id number] Z-[facility] = [facility] n 0-25 500 mg day ity of (ZITHROMAX 00:00: [place] [facility] 250 00 250 mg Medical mg tablet days 2 to Branc h 5. Z-Steven = 500mg day 1, then 250mg days 2 to 5. fluticasone 2021-04 Yes [id number] 1{spray Use 1 [facility] propionate 0-25 } [place] in ity o f 50 00:00: each [place] mcg/actuati 00 nostril in Me dical on nasal the Branch spray morning. azelastine 2021-04 Yes [id number] 1{spray Use 1 [facility] 137 mcg 0-25 } [place] in ity of (0.1 %) 00:00: each [place] nasal spray 00 nostril in Me dical the Branch morning and 1 [place] in the evening. Use in each nostril as directed guaiFENesin 2021-04 Yes [id number] 400mg Take 1 [facility] 400 mg 0-25 tablet by ity of tablet 00:00: mouth [place] 00 every 4 Medical (four) Branch hours as needed for Cough. azithromyci 2021-04 Yes [id number] Z-Steven = [facility] n 0-25 500 mg day ity of (ZITHROMAX 00:00: [place] [facility] 250 00 250 mg Medical mg tablet days 2 to Branc h 5. Z-Steven = 500mg day 1, then 250mg days 2 to 5. fluticasone 2021-04 Yes [id number] 1{spray Use 1 [facility] propionate 0-25 } [place] in ity o f 50 00:00: each [place] mcg/actuati 00 nostril in Me dical on nasal the Branch spray morning. azelastine 2021-04 Yes [id number] 1{spray Use 1 [facility] 137 mcg 0-25 } [place] in ity of (0.1 %) 00:00: each [place] nasal spray 00 nostril in Me dical the Branch morning and 1 [place] in the evening. Use in each nostril as directed guaiFENesin 2021-04 Yes [id number] 400mg Take 1 [facility] 400 mg 0-25 tablet by ity of tablet 00:00: mouth [place] 00 every 4 Medical (four) Branch hours as needed for Cough. azithromyci 2021-04 Yes [id number] Z-[facility] = [facility] n 0-25 500 mg day ity of (ZITHROMAX 00:00: [place] [facility] 250 00 250 mg Medical mg tablet days 2 to Branc h 5. Z-Steven = 500mg day 1, then 250mg days 2 to 5. fluticasone 2021-04 Yes [id number] 1{spray Use 1 [facility] propionate 0-25 } [place] in ity o f 50 00:00: each [place] mcg/actuati 00 nostril in Me dical on nasal the Branch spray morning. azelastine 2021-04 Yes [id number] 1{spray Use 1 [facility] 137 mcg 0-25 } [place] in ity of (0.1 %) 00:00: each [place] nasal spray 00 nostril in Me dical the Branch morning and 1 [place] in the evening. Use in each nostril as directed guaiFENesin 2021-04 Yes [id number] 400mg Take 1 [facility] 400 mg 0-25 tablet by ity of tablet 00:00: mouth [place] 00 every 4 Medical (four) Branch hours as needed for Cough. azithromyci 2021-04 Yes [id number] Z-Steven = [facility] n 0-25 500 mg day ity of (ZITHROMAX 00:00: [place] Z-STEV[facility] 250 00 250 mg Medical mg tablet days 2 to Branc h 5. Z-Steven = 500mg day 1, then 250mg days 2 to 5. fluticasone 2021-04 Yes [id number] 1{spray Use 1 [facility] propionate 0-25 } [place] in ity o f 50 00:00: each [place] mcg/actuati 00 nostril in Me dical on nasal the Branch spray morning. azelastine 2021-04 Yes [id number] 1{spray Use 1 [facility] 137 mcg 0-25 } [place] in ity of (0.1 %) 00:00: each [place] nasal spray 00 nostril in Me dical the Branch morning and 1 [place] in the evening. Use in each nostril as directed guaiFENesin 2021-04 Yes [id number] 400mg Take 1 [facility] 400 mg 0-25 tablet by ity of tablet 00:00: mouth [place] 00 every 4 Medical (four) Branch hours as needed for Cough. azithromyci 2021-04 Yes [id number] Z-Steven = [facility] n 0-25 500 mg day ity of (ZITHROMAX 00:00: [place] [facility]EV[facility] 250 00 250 mg Medical mg tablet days 2 to Branc h 5. Z-Steven = 500mg day 1, then 250mg days 2 to 5. fluticasone 2021-04 Yes [id number] 1{spray Use 1 [facility] propionate 0-25 } [place] in ity o f 50 00:00: each [place] mcg/actuati 00 nostril in Me dical on nasal the Branch spray morning. azelastine 2021-04 Yes [id number] 1{spray Use 1 [facility] 137 mcg 0-25 } [place] in ity of (0.1 %) 00:00: each [place] nasal spray 00 nostril in Me dical the Branch morning and 1 [place] in the evening. Use in each nostril as directed guaiFENesin 2021-04 Yes [id number] 400mg Take 1 [facility] 400 mg 0-25 tablet by ity of tablet 00:00: mouth [place] 00 every 4 Medical (four) Branch hours as needed for Cough. azithromyci 2021-04 Yes [id number] Z-Steven = [facility] n 0-25 500 mg day ity of (ZITHROMAX 00:00: [place] [facility]EV[facility] 250 00 250 mg Medical mg tablet days 2 to Branc h 5. Z-Steven = 500mg day 1, then 250mg days 2 to 5. fluticasone 2021-04 Yes [id number] 1{spray Use 1 [facility] propionate 0-25 } [place] in ity o f 50 00:00: each [place] mcg/actuati 00 nostril in Me dical on nasal the Branch spray morning. azelastine 2021-04 Yes [id number] 1{spray Use 1 [facility] 137 mcg 0-25 } [place] in ity of (0.1 %) 00:00: each [place] nasal spray 00 nostril in Me dical the Branch morning and 1 [place] in the evening. Use in each nostril as directed guaiFENesin 2021-04 Yes [id number] 400mg Take 1 [facility] 400 mg 0-25 tablet by ity of tablet 00:00: mouth [place] 00 every 4 Medical (four) Branch hours as needed for Cough. azithromyci 2021-04 Yes [id number] Z-[facility] = [facility] n 0-25 500 mg day ity of (ZITHROMAX 00:00: [place] [facility]EV[facility] 250 00 250 mg Medical mg tablet days 2 to Branc h 5. Z-Steven = 500mg day 1, then 250mg days 2 to 5. fluticasone 2021-04 Yes [id number] 1{spray Use 1 [facility] propionate 0-25 } [place] in ity o f 50 00:00: each [place] mcg/actuati 00 nostril in Me dical on nasal the Branch spray morning. azelastine 2021-04 Yes [id number] 1{spray Use 1 [facility] 137 mcg 0-25 } [place] in ity of (0.1 %) 00:00: each [place] nasal spray 00 nostril in Me dical the Branch morning and 1 [place] in the evening. Use in each nostril as directed guaiFENesin 2021-04 Yes [id number] 400mg Take 1 [facility] 400 mg 0-25 tablet by ity of tablet 00:00: mouth [place] 00 every 4 Medical (four) Branch hours as needed for Cough. azithromyci 2021-04 Yes [id number] Z-Steven = [facility] n 0-25 500 mg day ity of (ZITHROMAX 00:00: [place] [facility]EV[facility]) 250 00 250 mg Medical mg tablet days 2 to Branc h 5. Z-Steven = 500mg day 1, then 250mg days 2 to 5. fluticasone 2021-04 Yes [id number] 1{spray Use 1 [facility] propionate 0-25 } [place] in ity o f 50 00:00: each [place] mcg/actuati 00 nostril in Me dical on nasal the Branch spray morning. azelastine 2021-04 Yes [id number] 1{spray Use 1 [facility] 137 mcg 0-25 } [place] in ity of (0.1 %) 00:00: each [place] nasal spray 00 nostril in Me dical the Branch morning and 1 [place] in the evening. Use in each nostril as directed guaiFENesin 2021-04 Yes [id number] 400mg Take 1 [facility] 400 mg 0-25 tablet by ity of tablet 00:00: mouth [place] 00 every 4 Medical (four) Branch hours as needed for Cough. azithromyci 2021-04 Yes [id number] Z-[facility] = [facility] n 0-25 500 mg day ity of (ZITHROMAX 00:00: [place] [facility]EV[facility]) 250 00 250 mg Medical mg tablet days 2 to Branc h 5. Z-Steven = 500mg day 1, then 250mg days 2 to 5. fluticasone 2021-04 Yes [id number] 1{spray Use 1 [facility] propionate 0-25 } [place] in ity o f 50 00:00: each [place] mcg/actuati 00 nostril in Me dical on nasal the Branch spray morning. azelastine 2021-04 Yes [id number] 1{spray Use 1 [facility] 137 mcg 0-25 } [place] in ity of (0.1 %) 00:00: each [place] nasal spray 00 nostril in Me dical the Branch morning and 1 [place] in the evening. Use in each nostril as directed guaiFENesin 2021-04 Yes [id number] 400mg Take 1 [facility] 400 mg 0-25 tablet by ity of tablet 00:00: mouth [place] 00 every 4 Medical (four) Branch hours as needed for Cough. azithromyci 2021-04 Yes [id number] Z-Steven = [facility] n 0-25 500 mg day ity of (ZITHROMAX 00:00: [place] Z-STEVEN) 250 00 250 mg Medical mg tablet days 2 to Branc h 5. Z-Steven = 500mg day 1, then 250mg days 2 to 5. fluticasone 2021-04 Yes [id number] 1{spray Use 1 [facility] propionate 0-25 } [place] in ity o f 50 00:00: each [place] mcg/actuati 00 nostril in Me dical on nasal the Branch spray morning. azelastine 2021-04 Yes [id number] 1{spray Use 1 [facility] 137 mcg 0-25 } [place] in ity of (0.1 %) 00:00: each [place] nasal spray 00 nostril in Me dical the Branch morning and 1 [place] in the evening. Use in each nostril as directed guaiFENesin 2021-04 Yes [id number] 400mg Take 1 [facility] 400 mg 0-25 tablet by ity of tablet 00:00: mouth [place] 00 every 4 Medical (four) Branch hours as needed for Cough. azithromyci 2021-04 Yes [id number] Z-Steven = [facility] n 0-25 500 mg day ity of (ZITHROMAX 00:00: [place], [place] Z-STEVEN) 250 00 250 mg Medical mg tablet days 2 to Branc h 5. Z-Steven = 500mg day 1, then 250mg days 2 to 5. fluticasone 2021-04 Yes [id number] 1{spray Use 1 [facility] propionate 0-25 } [place] in ity o f 50 00:00: each [place] mcg/actuati 00 nostril in Me dical on nasal the Branch spray morning. azelastine 2021-04 Yes [id number] 1{spray Use 1 [facility] 137 mcg 0-25 } [place] in ity of (0.1 %) 00:00: each [place] nasal spray 00 nostril in Me dical the Branch morning and 1 [place] in the evening. Use in each nostril as directed guaiFENesin 2021-04 Yes [id number] 400mg Take 1 [facility] 400 mg 0-25 tablet by ity of tablet 00:00: mouth [place] 00 every 4 Medical (four) Branch hours as needed for Cough. azithromyci 2021-04 Yes [id number] Z-Steven = [facility] n 0-25 500 mg day ity of (ZITHROMAX 00:00: [place], [place] [facility]EVEN) 250 00 250 mg Medical mg tablet days 2 to Branc h 5. Z-Steven = 500mg day 1, then 250mg days 2 to 5. fluticasone 2021-04 Yes [id number] 1{spray Use 1 [facility] propionate 0-25 } [place] in ity o f 50 00:00: each [place] mcg/actuati 00 nostril in Me dical on nasal the Branch spray morning. azelastine 2021-04 Yes [id number] 1{spray Use 1 [facility] 137 mcg 0-25 } [place] in ity of (0.1 %) 00:00: each [place] nasal spray 00 nostril in Me dical the Branch morning and 1 [place] in the evening. Use in each nostril as directed guaiFENesin 2021-04 Yes [id number] 400mg Take 1 [facility] 400 mg 0-25 tablet by ity of tablet 00:00: mouth [place] 00 every 4 Medical (four) Branch hours as needed for Cough. azithromyci 2021-04 Yes [id number] Z-Steven = [facility] n 0-25 500 mg day ity of (ZITHROMAX 00:00: [place], [place] Z-STEVEN) 250 00 250 mg Medical mg tablet days 2 to Branc h 5. Z-Steven = 500mg day 1, then 250mg days 2 to 5. fluticasone 2021-04 Yes [id number] 1{spray Use 1 [facility] propionate 0-25 } [place] in ity o f 50 00:00: each [place] mcg/actuati 00 nostril in Me dical on nasal the Branch spray morning. azelastine 2021-04 Yes [id number] 1{spray Use 1 [facility] 137 mcg 0-25 } [place] in ity of (0.1 %) 00:00: each [place] nasal spray 00 nostril in Me dical the Branch morning and 1 [place] in the evening. Use in each nostril as directed guaiFENesin 2021-04 Yes [id number] 400mg Take 1 [facility] 400 mg 0-25 tablet by ity of tablet 00:00: mouth [place] 00 every 4 Medical (four) Branch hours as needed for Cough. azithromyci 2021-04 Yes [id number] Z-Steven = [facility] n 0-25 500 mg day ity of (ZITHROMAX 00:00: 1, [place] Z-STEVEN) 250 00 250 mg Medical mg tablet days 2 to Branc h 5. Z-Steven = 500mg day 1, then 250mg days 2 to 5. fluticasone 2021-04 Yes [id number] 1{spray Use 1 [facility] propionate 0-25 } [place] in ity o f 50 00:00: each [place] mcg/actuati 00 nostril in Me dical on nasal the Branch spray morning. azelastine 2021-04 Yes [id number] 1{spray Use 1 [facility] 137 mcg 0-25 } [place] in ity of (0.1 %) 00:00: each [place] nasal spray 00 nostril in Me dical the Branch morning and 1 [place] in the evening. Use in each nostril as directed guaiFENesin 2021-04 Yes [id number] 400mg Take 1 [facility] 400 mg 0-25 tablet by ity of tablet 00:00: mouth [place] 00 every 4 Medical (four) Branch hours as needed for Cough. azithromyci 2021-04 Yes [id number] Z-Steven = [facility] n 0-25 500 mg day ity of (ZITHROMAX 00:00: [place] Z-[facility]EV[facility]) 250 00 250 mg Medical mg tablet days 2 to Branc h 5. Z-Steven = 500mg day 1, then 250mg days 2 to 5. fluticasone 2021-04 Yes [id number] 1{spray Use 1 [facility] propionate 0-25 } [place] in ity o f 50 00:00: each [place] mcg/actuati 00 nostril in [facility] on nasal the Branch spray morning. azelastine 2021-04 Yes [id number] 1{spray Use 1 [facility] 137 mcg 0-25 } [place] in [facility]y of (0.1 %) 00:00: each [place] nasal spray 00 nostril in [facility] the [facility] morning and 1 [place] in the evening. Use in each nostril as directed guaiFENesin 2021-04 Yes [id number] 400mg Take 1 [facility] 400 mg 0-25 tablet by ity of tablet 00:00: mouth [place] 00 every 4 Medical (four) Branch hours as needed for Cough. azithromyci 2021-04 Yes [id number] [facility] = [facility] n 0-25 500 mg day it[facility] of (ZITHROMAX 00:00: [place] [facility] 250 00 250 mg Medical mg tablet days 2 to Branc h 5. Z-Steven = 500mg day 1, then 250mg days 2 to 5. fluticasone 2021-04 Yes [id number] 1{spray Use 1 [facility] propionate 0-25 } [place] in ity o f 50 00:00: each [place] mcg/actuati 00 nostril in [facility] on nasal the Branch spray morning. azelastine 2021-04 Yes [id number] 1{spray Use 1 [facility] 137 mcg 0-25 } [place] [facility]y of (0.1 %) 00:00: each [place] nasal spray 00 nostril in [facility] the [facility] morning and 1 [place] in the evening. Use in each nostril as directed guaiFENesin 2021-04 Yes [id number] 400mg Take 1 [facility] 400 mg 0-25 tablet by ity of tablet 00:00: mouth [place] 00 every 4 Medical (four) Branch hours as needed for Cough. azithromyci 2021-04 Yes [id number] [facility] = [facility] n 0-25 500 mg day it[facility] of (ZITHROMAX 00:00: [place] [facility] 250 00 250 mg Medical mg tablet days 2 to Branc [facility] 5. Z-Steven = 500mg day 1, then 250mg days 2 to 5. fluticasone 2021-04 Yes [id number] 1{spray Use 1 [facility] propionate 0-25 } [place] in ity o f 50 00:00: each [place] mcg/actuati 00 nostril in [facility] d[facility] on nasal the Branch spray morning. azelastine 2021-04 Yes [id number] 1{spray Use 1 [facility] 137 mcg 0-25 } [place] in [facility]y of (0.1 %) 00:00: each [place] nasal spray 00 nostril in [facility] the [facility] morning and 1 [place] in the evening. Use in each nostril as directed guaiFENesin 2021-04 Yes [id number] 400mg Take 1 [facility] 400 mg 0-25 tablet by ity of tablet 00:00: mouth [place] 00 every 4 Medical (four) Branch hours as needed for Cough. azithromyci 2021-04 Yes [id number] [facility] = [facility] n 0-25 500 mg day it[facility] of (ZITHROMAX 00:00: [place] [facility] 250 00 250 mg Medical mg tablet days 2 to Branc [facility] 5. Z-Steven = 500mg day 1, then 250mg days 2 to 5. fluticasone 2021-04 Yes [id number] 1{spray Use 1 [facility] propionate 0-25 } [place] in ity o f 50 00:00: each [place] mcg/actuati 00 nostril in [facility] d[facility] on nasal the Branch spray morning. azelastine 2021-04 Yes [id number] 1{spray Use 1 [facility] 137 mcg 0-25 } [place] in [facility] of (0.1 %) 00:00: each [place] nasal spray 00 nostril in [facility] the [facility] morning and 1 [place] in the evening. Use in each nostril as directed guaiFENesin 2021-04 Yes [id number] 400mg Take 1 [facility] 400 mg 0-25 tablet by ity of tablet 00:00: mouth [place] 00 every 4 Medical (four) Branch hours as needed for Cough. azithromyci 2021-04 Yes [id number] [facility] = [facility] n 0-25 500 mg day it[facility] of (ZITHROMAX 00:00: [place] [facility] 250 00 250 mg Medical mg tablet days 2 to Br[facility] 5. [facility]-Steven = 500mg day 1, then 250mg days 2 to 5. fluticasone 2021-04 Yes [id number] 1{spray Use 1 [facility] propionate 0-25 } [place] in it[facility] o f 50 00:00: each [place] mcg/actuati 00 nostril in [facility] on nasal the Branch spray morning. azelastine 2021-04 Yes [id number] 1{spray Use 1 [facility] 137 mcg 0-25 } [place] in [facility]y of (0.1 %) 00:00: each [place] nasal spray 00 nostril in [facility] the [facility] morning and 1 [place] in the evening. Use in each nostril as directed guaiFENesin 2021-04 Yes [id number] 400mg Take 1 [facility] 400 mg 0-25 tablet by ity of tablet 00:00: mouth [place] 00 every 4 Medical (four) Branch hours as needed for Cough. azithromyci 2021-04 Yes [id number] [facility] = [facility] n 0-25 500 mg day it[facility] of (ZITHROMAX 00:00: [place] [facility] 250 00 250 mg Medical mg tablet days 2 to Branc [facility] 5. Z-Steven = 500mg day 1, then 250mg days 2 to 5. fluticasone 2021-04 Yes [id number] 1{spray Use 1 [facility] propionate 0-25 } [place] in ity o f 50 00:00: each [place] mcg/actuati 00 nostril in [facility] d[facility] on nasal the Branch spray morning. azelastine 2021-04 Yes [id number] 1{spray Use 1 [facility] 137 mcg 0-25 } [place] in [facility] of (0.1 %) 00:00: each [place] nasal spray 00 nostril in [facility] the [facility] morning and 1 [place] in the evening. Use in each nostril as directed guaiFENesin 2021-04 Yes [id number] 400mg Take 1 [facility] 400 mg 0-25 tablet by ity of tablet 00:00: mouth [place] 00 every 4 Medical (four) Branch hours as needed for Cough. azithromyci 2021-04 Yes [id number] [facility] = [facility] n 0-25 500 mg day it[facility] of (ZITHROMAX 00:00: [place], [place] [facility] 250 00 250 mg Medical mg tablet days 2 to Branc [facility] 5. Z-Steven = 500mg day 1, then 250mg days 2 to 5. fluticasone 2021-04 Yes [id number] 1{spray Use 1 [facility] propionate 0-25 } [place] in ity o f 50 00:00: each [place] mcg/actuati 00 nostril in [facility] on nasal the Branch spray morning. azelastine 2021-04 Yes [id number] 1{spray Use 1 [facility] 137 mcg 0-25 } [place] in [facility] of (0.1 %) 00:00: each [place] nasal spray 00 nostril in [facility] the [facility] morning and 1 [place] in the evening. Use in each nostril as directed guaiFENesin 2021-04 Yes [id number] 400mg Take 1 [facility] 400 mg 0-25 tablet by ity of tablet 00:00: mouth [place] 00 every 4 Medical (four) Branch hours as needed for Cough. azithromyci 2021-04 Yes [id number] [facility] = [facility] n 0-25 500 mg day it[facility] of (ZITHROMAX 00:00: [place], [place] [facility] 250 00 250 mg Medical mg tablet days 2 to Branc h 5. Z-[facility] = 500mg day 1, then 250mg days 2 to 5. fluticasone 2021-04 Yes [id number] 1{spray Use 1 [facility] propionate 0-25 } [place] in ity o f 50 00:00: each [place] mcg/actuati 00 nostril in [facility] on nasal the Branch spray morning. azelastine 2021-04 Yes [id number] 1{spray Use 1 [facility] 137 mcg 0-25 } [place] in [facility]y of (0.1 %) 00:00: each [place] nasal spray 00 nostril in [facility] the [facility] morning and 1 [place] in the evening. Use in each nostril as directed guaiFENesin 2021-04 Yes [id number] 400mg Take 1 [facility] 400 mg 0-25 tablet by ity of tablet 00:00: mouth [place] 00 every 4 Medical (four) Branch hours as needed for Cough. azithromyci 2021-04 Yes [id number] [facility] = [facility] n 0-25 500 mg day ity of (ZITHROMAX 00:00: [place], [place] [facility] 250 00 250 mg Medical mg tablet days 2 to Branc h 5. Z-[facility] = 500mg day 1, then 250mg days 2 to 5. fluticasone 2021-04 Yes [id number] 1{spray Use 1 [facility] propionate 0-25 } [place] in ity o f 50 00:00: each [place] mcg/actuati 00 nostril in [facility] d[facility] on nasal the Branch spray morning. azelastine 2021-04 Yes [id number] 1{spray Use 1 [facility] 137 mcg 0-25 } [place] in [facility]y of (0.1 %) 00:00: each [place] nasal spray 00 nostril in [facility] the [facility] morning and 1 [place] in the evening. Use in each nostril as directed guaiFENesin 2021-04 Yes [id number] 400mg Take 1 [facility] 400 mg 0-25 tablet by ity of tablet 00:00: mouth [place] 00 every 4 Medical (four) Branch hours as needed for Cough. azithromyci 2021-04 Yes [id number] [facility] = [facility] n 0-25 500 mg day ity of (ZITHROMAX 00:00: [place] [facility] 250 00 250 mg Medical mg tablet days 2 to Branc h 5. [facility] = 500mg day 1, then 250mg days 2 to 5. fluticasone 2021-04 Yes [id number] 1{spray Use 1 [facility] propionate 0-25 } [place] in ity o f 50 00:00: each [place] mcg/actuati 00 nostril in [facility] d[facility] on nasal the Branch spray morning. azelastine 2021-04 Yes [id number] 1{spray Use 1 [facility] 137 mcg 0-25 } [place] in [facility]y of (0.1 %) 00:00: each [place] nasal spray 00 nostril in [facility] d[facility] the Branch morning and 1 [place] in the evening. Use in each nostril as directed guaiFENesin 2021-04 Yes [id number] 400mg Take 1 [facility] 400 mg 0-25 tablet by ity of tablet 00:00: mouth [place] 00 every 4 Medical (four) Branch hours as needed for Cough. azithromyci 2021-04 Yes [id number] [facility] = [facility] n 0-25 500 mg day ity of (ZITHROMAX 00:00: [place] [facility] 250 00 250 mg Medical mg tablet days 2 to Branc h 5. [facility] = 500mg day 1, then 250mg days 2 to 5. fluticasone 2021-04 Yes [id number] 1{spray Use 1 [facility] propionate 0-25 } [place] in ity o f 50 00:00: each [place] mcg/actuati 00 nostril in [facility] d[facility] on nasal the Branch spray morning. azelastine 2021-04 Yes [id number] 1{spray Use 1 [facility] 137 mcg 0-25 } [place] in [facility] of (0.1 %) 00:00: each [place] nasal spray 00 nostril in [facility] the [facility] morning and 1 [place] in the evening. Use in each nostril as directed guaiFENesin 2021-04 Yes [id number] 400mg Take 1 [facility] 400 mg 0-25 tablet by ity of tablet 00:00: mouth [place] 00 every 4 Medical (four) Branch hours as needed for Cough. azithromyci 2021-04 Yes [id number] [facility] = [facility] n 0-25 500 mg day it[facility] of (ZITHROMAX 00:00: [place], [place] [facility] 250 00 250 mg Medical mg tablet days 2 to Branc h 5. [facility] = 500mg day 1, then 250mg days 2 to 5. fluticasone 2021-04 Yes [id number] 1{spray Use 1 [facility] propionate 0-25 } [place] in ity o f 50 00:00: each [place] mcg/actuati 00 nostril in [facility] d[facility] on nasal the Branch spray morning. azelastine 2021-04 Yes [id number] 1{spray Use 1 [facility] 137 mcg 0-25 } [place] in ity of (0.1 %) 00:00: each [place] nasal spray 00 nostril in [facility] d[facility] the Branch morning and 1 [place] in the evening. Use in each nostril as directed guaiFENesin 2021-04 Yes [id number] 400mg Take 1 [facility] 400 mg 0-25 tablet by ity of tablet 00:00: mouth [place] 00 every 4 Medical (four) Branch hours as needed for Cough. azithromyci 2021-04 Yes [id number] [facility] = [facility] n 0-25 500 mg day ity of (ZITHROMAX 00:00: [place], [place] [facility]) 250 00 250 mg Medical mg tablet days 2 to Branc h 5. [facility] = 500mg day 1, then 250mg days 2 to 5. fluticasone 2021-04 Yes [id number] 1{spray Use 1 [facility] propionate 0-25 } [place] in ity o f 50 00:00: each [place] mcg/actuati 00 nostril in Me d[facility] on nasal the Branch spray morning. azelastine 2021-04 Yes [id number] 1{spray Use 1 [facility] 137 mcg 0-25 } [place] in [facility]y of (0.1 %) 00:00: each [place] nasal spray 00 nostril in [facility] d[facility] the Branch morning and 1 [place] in the evening. Use in each nostril as directed guaiFENesin 2021-04 Yes [id number] 400mg Take 1 [facility] 400 mg 0-25 tablet by ity of tablet 00:00: mouth [place] 00 every 4 Medical (four) Branch hours as needed for Cough. azithromyci 2021-04 Yes [id number] [facility] = [facility] n 0-25 500 mg day ity of (ZITHROMAX 00:00: 1, [place] [facility]) 250 00 250 mg Medical mg tablet days 2 to Branc h 5. Z-Steven = 500mg day 1, then 250mg days 2 to 5. fluticasone 2021-04 Yes [id number] 1{spray Use 1 [facility] propionate 0-25 } [place] in ity o f 50 00:00: each [place] mcg/actuati 00 nostril in Me dical on nasal the Branch spray morning. azelastine 2021-04 Yes [id number] 1{spray Use 1 [facility] 137 mcg 0-25 } [place] in ity of (0.1 %) 00:00: each [place] nasal spray 00 nostril in Me dical the Branch morning and 1 [place] in the evening. Use in each nostril as directed guaiFENesin 2021-04 Yes [id number] 400mg Take 1 [facility] 400 mg 0-25 tablet by ity of tablet 00:00: mouth [place] 00 every 4 Medical (four) Branch hours as needed for Cough. azithromyci 2021-04 Yes [id number] [facility] = [facility] n 0-25 500 mg day ity of (ZITHROMAX 00:00: 1, [place] [facility]) 250 00 250 mg Medical mg tablet days 2 to Branc h 5. Z-Steven = 500mg day 1, then 250mg days 2 to 5. fluticasone 2021-04 Yes [id number] 1{spray Use 1 [facility] propionate 0-25 } [place] in ity o f 50 00:00: each [place] mcg/actuati 00 nostril in Me dical on nasal the Branch spray morning. azelastine 2021-04 Yes [id number] 1{spray Use 1 [facility] 137 mcg 0-25 } [place] in ity of (0.1 %) 00:00: each [place] nasal spray 00 nostril in [facility] dical the Branch morning and 1 [place] in the evening. Use in each nostril as directed guaiFENesin 2021-04 Yes [id number] 400mg Take 1 [facility] 400 mg 0-25 tablet by ity of tablet 00:00: mouth [place] 00 every 4 Medical (four) Branch hours as needed for Cough. azithromyci 2021-04 Yes [id number] [facility] = [facility] n 0-25 500 mg day ity of (ZITHROMAX 00:00: 1, [place] [facility]) 250 00 250 mg Medical mg tablet days 2 to Branc h 5. Z-[facility] = 500mg day 1, then 250mg days 2 to 5. fluticasone 2021-04 Yes [id number] 1{spray Use 1 [facility] propionate 0-25 } [place] in ity o f 50 00:00: each [place] mcg/actuati 00 nostril in Me dical on nasal the Branch spray morning. azelastine 2021-04 Yes [id number] 1{spray Use 1 [facility] 137 mcg 0-25 } [place] in ity of (0.1 %) 00:00: each [place] nasal spray 00 nostril in Me dical the Branch morning and 1 [place] in the evening. Use in each nostril as directed guaiFENesin 2021-04 Yes [id number] 400mg Take 1 [facility] 400 mg 0-25 tablet by ity of tablet 00:00: mouth [place] 00 every 4 Medical (four) Branch hours as needed for Cough. azithromyci 2021-04 Yes [id number] [facility]-Stevne = [facility] n 0-25 500 mg day ity of (ZITHROMAX 00:00: [place], [place] [facility]EV[facility]) 250 00 250 mg Medical mg tablet days 2 to Branc h 5. Z-Steven = 500mg day 1, then 250mg days 2 to 5. fluticasone 2021-04 Yes [id number] 1{spray Use 1 [facility] propionate 0-25 } [place] in ity o f 50 00:00: each [place] mcg/actuati 00 nostril in Me dical on nasal the Branch spray morning. azelastine 2021-04 Yes [id number] 1{spray Use 1 [facility] 137 mcg 0-25 } [place] in ity of (0.1 %) 00:00: each [place] nasal spray 00 nostril in Me dical the Branch morning and 1 [place] in the evening. Use in each nostril as directed guaiFENesin 2021-04 Yes [id number] 400mg Take 1 [facility] 400 mg 0-25 tablet by ity of tablet 00:00: mouth [place] 00 every 4 Medical (four) Branch hours as needed for Cough. azithromyci 2021-04 Yes [id number] [facility] = [facility] n 0-25 500 mg day ity of (ZITHROMAX 00:00: 1, [place] [facility]EV[facility]) 250 00 250 mg Medical mg tablet days 2 to Branc h 5. [facility] = 500mg day 1, then 250mg days 2 to 5. fluticasone 2021-04 Yes [id number] 1{spray Use 1 [facility] propionate 0-25 } [place] in ity o f 50 00:00: each [place] mcg/actuati 00 nostril in Me dical on nasal the Branch spray morning. azelastine 2021-04 Yes [id number] 1{spray Use 1 [facility] 137 mcg 0-25 } [place] in ity of (0.1 %) 00:00: each [place] nasal spray 00 nostril in Me dical the Branch morning and 1 [place] in the evening. Use in each nostril as directed guaiFENesin 2021-04 Yes [id number] 400mg Take 1 [facility] 400 mg 0-25 tablet by ity of tablet 00:00: mouth [place] 00 every 4 Medical (four) Branch hours as needed for Cough. azithromyci 2021-04 Yes [id number] [facility] = [facility] n 0-25 500 mg day ity of (ZITHROMAX 00:00: 1, then [place] [facility]EV[facility]) 250 00 250 mg Medical mg tablet days 2 to Branc h 5. [facility] = 500mg day 1, then 250mg days 2 to 5. fluticasone 2021-04 Yes [id number] 1{spray Use 1 [facility] propionate 0-25 } [place] in ity o f 50 00:00: each [place] mcg/actuati 00 nostril in Me dical on nasal the Branch spray morning. azelastine 2021-04 Yes [id number] 1{spray Use 1 [facility] 137 mcg 0-25 } [place] in ity of (0.1 %) 00:00: each [place] nasal spray 00 nostril in Me dical the Branch morning and 1 [place] in the evening. Use in each nostril as directed guaiFENesin 2021-04 Yes [id number] 400mg Take 1 [facility] 400 mg 0-25 tablet by ity of tablet 00:00: mouth [place] 00 every 4 Medical (four) Branch hours as needed for Cough. azithromyci 2021-04 Yes [id number] [facility] = [facility] n 0-25 500 mg day ity of (ZITHROMAX 00:00: 1, [place] [facility]) 250 00 250 mg Medical mg tablet days 2 to Branc h 5. Z-Steven = 500mg day 1, then 250mg days 2 to 5. fluticasone 2021-04 Yes [id number] 1{spray Use 1 [facility] propionate 0-25 } [place] in ity o f 50 00:00: each [place] mcg/actuati 00 nostril in Me dical on nasal the Branch spray morning. azelastine 2021-04 Yes [id number] 1{spray Use 1 [facility] 137 mcg 0-25 } [place] in ity of (0.1 %) 00:00: each [place] nasal spray 00 nostril in Me dical the Branch morning and 1 [place] in the evening. Use in each nostril as directed guaiFENesin 2021-04 Yes [id number] 400mg Take 1 [facility] 400 mg 0-25 tablet by ity of tablet 00:00: mouth [place] 00 every 4 Medical (four) Branch hours as needed for Cough. azithromyci 2021-04 Yes [id number] [facility] = [facility] n 0-25 500 mg day ity of (ZITHROMAX 00:00: 1, then [place] [facility]) 250 00 250 mg Medical mg tablet days 2 to Branc h 5. Z-[facility] = 500mg day 1, then 250mg days 2 to 5. fluticasone 2021-04 Yes [id number] 1{spray Use 1 [facility] propionate 0-25 } [place] in ity o f 50 00:00: each [place] mcg/actuati [place] in [place] [facility] nasal the [facility] spray morning. azelastine 2021-04 Yes [id number] 1{spray Use 1 [facility] 137 mcg 0-25 } [place] in ity of (0.1 %) 00:00: each [place] nasal spray [place] [facility] [facility] morning and 1 [place] in the evening. Use in each nostril as directed guaiFENesin 2021-04 Yes [id number] 400mg Take 1 [facility] 400 mg 0-25 tablet by ity of tablet 00:00: mouth [place] 00 every 4 Medical (four) Branch hours as needed for Cough. azithromyci 2021-04 Yes [id number] [facility] = [facility] n 0-25 500 mg day ity of (ZITHROMAX 00:00: 1, [place] [facility]) 250 00 250 mg Medical mg tablet days 2 to Branc h 5. Z-Steven = 500mg day 1, then 250mg days 2 to 5. fluticasone 2021-04 Yes [id number] 1{spray Use 1 [facility] propionate 0-25 } [place] in ity o f 50 00:00: each [place] mcg/actuati 00 nostril in Me dical on nasal the Branch spray morning. azelastine 2021-04 Yes [id number] 1{spray Use 1 [facility] 137 mcg 0-25 } [place] in ity of (0.1 %) 00:00: each [place] nasal spray 00 nostril in Me dical the Branch morning and 1 [place] in the evening. Use in each nostril as directed guaiFENesin 2021-04 Yes [id number] 400mg Take 1 [facility] 400 mg 0-25 tablet by ity of tablet 00:00: mouth [place] 00 every 4 Medical (four) Branch hours as needed for Cough. azithromyci 2021-04 Yes [id number] Z-[facility] = [facility] n 0-25 500 mg day ity of (ZITHROMAX 00:00: 1, [place] [facility]) 250 00 250 mg Medical mg tablet days 2 to Branc h 5. Z-Steven = 500mg day 1, then 250mg days 2 to 5. fluticasone 2021-04 Yes [id number] 1{spray Use 1 [facility] propionate 0-25 } [place] in ity o f 50 00:00: each [place] mcg/actuati 00 nostril in [facility] on nasal the Branch spray morning. azelastine 2021-04 Yes [id number] 1{spray Use 1 [facility] 137 mcg 0-25 } [place] in ity of (0.1 %) 00:00: each [place] [facility] [place] in the evening. Use in each nostril as directed guaiFENesin 2021-04 Yes [id number] 400mg Take 1 [facility] 400 mg 0-25 tablet by ity of tablet 00:00: mouth [place] 00 every 4 Medical (four) Branch hours as needed for Cough. azelastine 2021-04 Yes [id number] 1{spray Use 1 [facility] 137 mcg 0-25 } [place] in ity of (0.1 %) 00:00: each [place] nasal spray [place] [facility] morning and 1 [place] in the evening. Use in each nostril as directed azelastine 2021-04 Yes [id number] 1{spray Use 1 [facility] 137 mcg 0-25 } [place] in ity of (0.1 %) 00:00: each [place] nasal spray [place] [facility] morning and 1 [place] in the evening. Use in each nostril as directed azelastine 2021-04 Yes [id number] 1{spray Use 1 [facility] 137 mcg 0-25 } [place] in ity of (0.1 %) 00:00: each [place] nasal spray 00 nostril in [facility] dical the Branch morning and 1 [place] in the evening. Use in each nostril as directed azelastine 2021- Yes [id number] 1{spray Use 1 [facility] 137 mcg 0-25 } [place] in ity of (0.1 %) 00:00: each [place] nasal spray 00 nostril in Me dical the Branch morning and 1 [place] in the evening. Use in each nostril as directed azelastine 2021- Yes [id number] 1{spray Use 1 [facility] 137 mcg 0-25 } [place] in ity of (0.1 %) 00:00: each [place] nasal spray [place] in [place] [facility] [facility] morning and 1 [place] in the evening. Use in each nostril as directed azelastine 2021- Yes [id number] 1{spray Use 1 [facility] 137 mcg 0-25 } [place] in ity of (0.1 %) 00:00: each [place] nasal spray [place] in [place] [facility] the [facility] morning and 1 [place] in the evening. Use in each nostril as directed azelastine 2021- Yes [id number] 1{spray Use 1 [facility] 137 mcg 0-25 } [place] in ity of (0.1 %) 00:00: each [place] nasal spray [place] in [place] [facility] the [facility] morning and 1 [place] in the evening. Use in each nostril as directed azelastine 2021-1 Yes [id number] 1{spray Use 1 [facility] 137 mcg 0-25 } [place] in ity of (0.1 %) 00:00: each [place] nasal spray [place] in [place] [facility] the [facility] morning and 1 [place] in the evening. Use in each nostril as directed azelastine 2021- Yes [id number] 1{spray Use 1 [facility] 137 mcg 0-25 } [place] in ity of (0.1 %) 00:00: each [place] nasal spray [place] in [place] [facility] the [facility] morning and 1 [place] in the evening. Use in each nostril as directed azelastine 2021- Yes [id number] 1{spray Use 1 [facility] 137 mcg 0-25 } [place] in ity of (0.1 %) 00:00: each [place] nasal spray [place] in [place] the [facility] morning and 1 [place] in the evening. Use in each nostril as directed azelastine 2021- Yes [id number] 1{spray Use 1 [facility] 137 mcg 0-25 } [place] in ity of (0.1 %) 00:00: each [place] nasal spray 00 nostril in [facility] dical the Branch morning and 1 [place] in the evening. Use in each nostril as directed azelastine 2021- Yes [id number] 1{spray Use 1 [facility] 137 mcg 0-25 } [place] in ity of (0.1 %) 00:00: each [place] nasal spray 00 nostril in [facility] dical the Branch morning and 1 [place] in the evening. Use in each nostril as directed azelastine 2021- Yes [id number] 1{spray Use 1 [facility] 137 mcg 0-25 } [place] in ity of (0.1 %) 00:00: each [place] nasal spray 00 nostril in Me dical the Branch morning and 1 [place] in the evening. Use in each nostril as directed azelastine 2021- Yes [id number] 1{spray Use 1 [facility] 137 mcg 0-25 } [place] in ity of (0.1 %) 00:00: each [place] nasal spray 00 nostril in Me dical the Branch morning and 1 [place] in the evening. Use in each nostril as directed azelastine 2021- Yes [id number] 1{spray Use 1 [facility] 137 mcg 0-25 } [place] in ity of (0.1 %) 00:00: each [place] nasal spray 00 nostril in Me dical the Branch morning and 1 [place] in the evening. Use in each nostril as directed azelastine 2021-1 Yes [id number] 1{spray Use 1 [facility] 137 mcg 0-25 } [place] in ity of (0.1 %) 00:00: each [place] nasal spray [place]ril in [place] [facility] the [facility] morning and 1 [place] in the evening. Use in each nostril as directed azelastine 2021- Yes [id number] 1{spray Use 1 [facility] 137 mcg 0-25 } [place] in ity of (0.1 %) 00:00: each [place] nasal spray 00 nostril in Me dical the Branch morning and 1 [place] in the evening. Use in each nostril as directed azelastine 2021-1 Yes [id number] 1{spray Use 1 [facility] 137 mcg 0-25 } [place] in ity of (0.1 %) 00:00: each [place] nasal spray 00 nostril in Me dical the Branch morning and 1 [place] in the evening. Use in each nostril as directed azelastine 2021-04 Yes [id number] 1{spray Use 1 [facility] 137 mcg 0-25 } [place] in ity of (0.1 %) 00:00: each [place] nasal spray 00 nostril in [facility] dical the Branch morning and 1 [place] in the evening. Use in each nostril as directed azelastine 2021-04 Yes [id number] 1{spray Use 1 [facility] 137 mcg 0-25 } [place] in ity of (0.1 %) 00:00: each [place] nasal spray 00 nostril in Me dical the Branch morning and 1 [place] in the evening. Use in each nostril as directed azelastine 2021-04 Yes [id number] 1{spray Use 1 [facility] 137 mcg 0-25 } [place] in ity of (0.1 %) 00:00: each [place] nasal spray 00 nostril in [facility] dical the Branch morning and 1 [place] in the evening. Use in each nostril as directed azelastine 2021-04 Yes [id number] 1{spray Use 1 [facility] 137 mcg 0-25 } [place] in ity of (0.1 %) 00:00: each [place] nasal spray 00 nostril in Me dical the Branch morning and 1 [place] in the evening. Use in each nostril as directed azelastine 2021-04- No [id number] 1{spray Use 1 [facility] 137 mcg 0-25 03-30 } [place] in ity of (0.1 %) 00:00: 00:00 each [place] nasal spray 00 :00 nostril in [facility] dical the Branch morning and 1 [place] in the evening. Use in each nostril as directed azelastine 2021-2022- No [id number] 1{spray Use 1 [facility] 137 mcg 0-25 03-30 } [place] in ity of (0.1 %) 00:00: 00:00 each [place] nasal spray 00 :00 nostril in [facility] dical the Branch morning and 1 [place] in the evening. Use in each nostril as directed azithromyci 2021-04- No [id number] Z-Steven = [facility] n 0-25 02-18 500 mg day ity of (ZITHROMAX 00:00: 00:00 1, then [place] Z-STEVEN) 250 00 :00 250 mg Medical mg tablet days 2 to Branc h 5. Z-Steven = 500mg day 1, then 250mg days 2 to 5. fluticasone 2021-04- No [id number] 1{spray Use 1 [facility] propionate 0-25 02-18 } [place] in ity of 50 00:00: 00:00 each [place] mcg/actuati 00 :00 nostril in [place] dical on nasal the Branch spray morning. guaiFENesin 2021-04- No [id number] 400mg Take 1 [facility] 400 mg 0-25 02-18 tablet by ity of tablet 00:00: 00:00 mouth [place] 00 :00 every 4 Medical (four) Branch hours as needed for Cough. fluticasone 2021-04 Yes [id number] 1{spray Use 1 [facility] propionate 0-14 } [place] in ity o f 50 00:00: each [place] mcg/actuati 00 nostril in Me dical on nasal the Branch spray morning. fluticasone 2021-04- No [id number] 1{spray Use 1 [facility] propionate 0-14 10-25 } [place] in ity of 50 00:00: 00:00 each [place] mcg/actuati 00 :00 nostril in Me dical on nasal the Branch spray morning. fluticasone 2021-04 Yes [id number] 1{spray Use 1 [facility] propionate 0-11 } [place] in ity o f 50 00:00: each [place] mcg/actuati 00 nostril in Me dical on nasal the Branch spray morning. Use 2 spray(s) in each nostril once daily fluticasone 2021-04 Yes [id number] 1{spray Use 1 [facility] propionate 0-11 } [place] in ity o f 50 00:00: each [place] mcg/actuati 00 nostril in Me dical on nasal the Branch spray morning. Use 2 spray(s) in each nostril once daily fluticasone 2021-04 Yes [id number] 1{spray Use 1 [facility] propionate 0-11 } [place] in ity o f 50 00:00: each [place] mcg/actuati 00 nostril in Me dical on nasal the Branch spray morning. Use 2 spray(s) in each nostril once daily fluticasone 2021-04 Yes [id number] 1{spray Use 1 [facility] propionate 0-11 } [place] in ity o f 50 00:00: each [place] mcg/actuati 00 nostril in Me dical on nasal the Branch spray morning. Use 2 spray(s) in each nostril once daily fluticasone 2021-04- No [id number] 1{spray Use 1 [facility] propionate 0-11 10-14 } [place] in ity of 50 00:00: 00:00 each [place] mcg/actuati 00 :00 nostril in Me dical on nasal the Branch spray morning. Use 2 spray(s) in each nostril once daily bromphenira 2021-04 Yes [id number] 5mL Take 5 mL [facility] mine-pseudo 0-10 by mouth 4 it y of ephedrine-D 00:00: (four[place] (BROMFED 00 times Medical DM) 2-30-10 daily as Bran ch mg/5 mL needed for syrup Congestion /Allergies . ondansetron 2021-04 Yes [id number] 4mg Take 1 [facility] 4 mg 0-10 tablet by ity of disintegrat 00:00: mouth [place] ing tablet 00 every 8 Medica l (eight) Branch hours as needed for Nausea and Vomiting (N/V). benzonatate 2021-04 Yes [id number] 200mg Take 2 [facility] 100 mg 0-10 capsules ity of capsule 00:00: by mouth [place] 00 every 8 Medical (eight) Branch hours as needed for Cough. bromphenira 2021-04 Yes [id number] 5mL Take 5 mL [facility] mine-pseudo 0-10 by mouth 4 it y of ephedrine-D 00:00: (four) [place] (BROMFED 00 times Medical DM) 2-30-10 daily as Bran ch mg/5 mL needed for syrup Congestion /Allergies . ondansetron 2021-04 Yes [id number] 4mg Take 1 [facility] 4 mg 0-10 tablet by ity of disintegrat 00:00: mouth [place] ing tablet 00 every 8 Medica l (eight) Branch hours as needed for Nausea and Vomiting (N/V). benzonatate 2021-04 Yes [id number] 200mg Take 2 [facility] 100 mg 0-10 capsules ity of capsule 00:00: by mouth [place] 00 every 8 Medical (eight) Branch hours as needed for Cough. bromphenira 2021-04 Yes [id number] 5mL Take 5 mL [facility] mine-pseudo 0-10 by mouth 4 it y of ephedrine-D 00:00: (four) [place] (BROMFED 00 times Medical DM) 2-30-10 daily as Bran ch mg/5 mL needed for syrup Congestion /Allergies . ondansetron 2021-04 Yes [id number] 4mg Take 1 [facility] 4 mg 0-10 tablet by ity of disintegrat 00:00: mouth [place] ing tablet 00 every 8 Medica l (eight) Branch hours as needed for Nausea and Vomiting (N/V). benzonatate 2021-04 Yes [id number] 200mg Take 2 [facility] 100 mg 0-10 capsules ity of capsule 00:00: by mouth [place] 00 every 8 Medical (eight) Branch hours as needed for Cough. bromphenira 2021-04 Yes [id number] 5mL Take 5 mL [facility] mine-pseudo 0-10 by mouth 4 it y of ephedrine-D 00:00: (four) [place] (BROMFED 00 times Medical DM) 2-30-10 daily as Bran ch mg/5 mL needed for syrup Congestion /Allergies . ondansetron 2021-04 Yes [id number] 4mg Take 1 [facility] 4 mg 0-10 tablet by ity of disintegrat 00:00: mouth [place] ing tablet 00 every 8 Medica l (eight) Branch hours as needed for Nausea and Vomiting (N/V). benzonatate 2021-04 Yes [id number] 200mg Take 2 [facility] 100 mg 0-10 capsules ity of capsule 00:00: by mouth [place] 00 every 8 Medical (eight) Branch hours as needed for Cough. bromphenira 2021-04 Yes [id number] 5mL Take 5 mL [facility] mine-pseudo 0-10 by mouth 4 it y of ephedrine-D 00:00: (four) [place] (BROMFED 00 times Medical DM) 2-30-10 daily as Bran ch mg/5 mL needed for syrup Congestion /Allergies . ondansetron 2021-04 Yes [id number] 4mg Take 1 [facility] 4 mg 0-10 tablet by ity of disintegrat 00:00: mouth [place] ing tablet 00 every 8 Medica l (eight) Branch hours as needed for Nausea and Vomiting (N/V). benzonatate 2021-04 Yes [id number] 200mg Take 2 [facility] 100 mg 0-10 capsules ity of capsule 00:00: by mouth [place] 00 every 8 Medical (eight) Branch hours as needed for Cough. bromphenira 2021-04 Yes [id number] 5mL Take 5 mL [facility] mine-pseudo 0-10 by mouth 4 it y of ephedrine-D 00:00: (four) [place] (BROMFED 00 times Medical DM) 2-30-10 daily as Bran ch mg/5 mL needed for syrup Congestion /Allergies . ondansetron 2021-04 Yes [id number] 4mg Take 1 [facility] 4 mg 0-10 tablet by ity of disintegrat 00:00: mouth [place] ing tablet 00 every 8 Medica l (eight) Branch hours as needed for Nausea and Vomiting (N/V). benzonatate 2021-04 Yes [id number] 200mg Take 2 [facility] 100 mg 0-10 capsules ity of capsule 00:00: by mouth [place] 00 every 8 Medical (eight) Branch hours as needed for Cough. bromphenira 2021-04 Yes [id number] 5mL Take 5 mL [facility] mine-pseudo 0-10 by mouth 4 it y of ephedrine-D 00:00: (four) [place] (BROMFED 00 times Medical DM) 2-30-10 daily as Bran ch mg/5 mL needed for syrup Congestion /Allergies . benzonatate 2021-04 Yes [id number] 200mg Take 2 [facility] 100 mg 0-10 capsules ity of capsule 00:00: by mouth [place] 00 every 8 Medical (eight) Branch hours as needed for Cough. bromphenira 2021-04 Yes [id number] 5mL Take 5 mL [facility] mine-pseudo 0-10 by mouth 4 it y of ephedrine-D 00:00: (four) [place] (BROMFED 00 times Medical DM) 2-30-10 daily as Bran ch mg/5 mL needed for syrup Congestion /Allergies . benzonatate 2021-04 Yes [id number] 200mg Take 2 [facility] 100 mg 0-10 capsules ity of capsule 00:00: by mouth [place] 00 every 8 Medical (eight) Branch hours as needed for Cough. bromphenira 2021-04 Yes [id number] 5mL Take 5 mL [facility] mine-pseudo 0-10 by mouth 4 it y of ephedrine-D 00:00: (four) [place] (BROMFED 00 times Medical DM) 2-30-10 daily as Bran ch mg/5 mL needed for syrup Congestion /Allergies . benzonatate 2021-04 Yes [id number] 200mg Take 2 [facility] 100 mg 0-10 capsules ity of capsule 00:00: by mouth [place] 00 every 8 Medical (eight) Branch hours as needed for Cough. bromphenira 2021-04 Yes [id number] 5mL Take 5 mL [facility] mine-pseudo 0-10 by mouth 4 it y of ephedrine-D 00:00: (four) [place] (BROMFED 00 times Medical DM) 2-30-10 daily as Bran ch mg/5 mL needed for syrup Congestion /Allergies . benzonatate 2021-04 Yes [id number] 200mg Take 2 [facility] 100 mg 0-10 capsules ity of capsule 00:00: by mouth [place] 00 every 8 Medical (eight) Branch hours as needed for Cough. bromphenira 2021-04 Yes [id number] 5mL Take 5 mL [facility] mine-pseudo 0-10 by mouth 4 it y of ephedrine-D 00:00: (four) [place] (BROMFED 00 times Medical DM) 2-30-10 daily as Bran ch mg/5 mL needed for syrup Congestion /Allergies . benzonatate 2021-04 Yes [id number] 200mg Take 2 [facility] 100 mg 0-10 capsules ity of capsule 00:00: by mouth [place] 00 every 8 Medical (eight) Branch hours as needed for Cough. bromphenira 2021-04 Yes [id number] 5mL Take 5 mL [facility] mine-pseudo 0-10 by mouth 4 it y of ephedrine-D 00:00: (four) [place] (BROMFED 00 times Medical DM) 2-30-10 daily as Bran ch mg/5 mL needed for syrup Congestion /Allergies . benzonatate 2021-04 Yes [id number] 200mg Take 2 [facility] 100 mg 0-10 capsules ity of capsule 00:00: by mouth [place] 00 every 8 Medical (eight) Branch hours as needed for Cough. bromphenira 2021-04 Yes [id number] 5mL Take 5 mL [facility] mine-pseudo 0-10 by mouth 4 it y of ephedrine-D 00:00: (four) [place] (BROMFED 00 times Medical DM) 2-30-10 daily as Bran ch mg/5 mL needed for syrup Congestion /Allergies . benzonatate 2021-04 Yes [id number] 200mg Take 2 [facility] 100 mg 0-10 capsules ity of capsule 00:00: by mouth [place] 00 every 8 Medical (eight) Branch hours as needed for Cough. bromphenira 2021-04 Yes [id number] 5mL Take 5 mL [facility] mine-pseudo 0-10 by mouth 4 it y of ephedrine-D 00:00: (four) [place] (BROMFED 00 times Medical DM) 2-30-10 daily as Bran ch mg/5 mL needed for syrup Congestion /Allergies . benzonatate 2021-04 Yes [id number] 200mg Take 2 [facility] 100 mg 0-10 capsules ity of capsule 00:00: by mouth [place] 00 every 8 Medical (eight) Branch hours as needed for Cough. bromphenira 2021-04 Yes [id number] 5mL Take 5 mL [facility] mine-pseudo 0-10 by mouth 4 it y of ephedrine-D 00:00: (four) [place] (BROMFED 00 times Medical DM) 2-30-10 daily as Bran ch mg/5 mL needed for syrup Congestion /Allergies . benzonatate 2021-04 Yes [id number] 200mg Take 2 [facility] 100 mg 0-10 capsules ity of capsule 00:00: by mouth [place] 00 every 8 Medical (eight) Branch hours as needed for Cough. bromphenira 2021-04 Yes [id number] 5mL Take 5 mL [facility] mine-pseudo 0-10 by mouth 4 it y of ephedrine-D 00:00: (four) [place] (BROMFED 00 times Medical DM) 2-30-10 daily as Bran ch mg/5 mL needed for syrup Congestion /Allergies . benzonatate 2021-04 Yes [id number] 200mg Take 2 [facility] 100 mg 0-10 capsules ity of capsule 00:00: by mouth [place] 00 every 8 Medical (eight) Branch hours as needed for Cough. bromphenira 2021-04 Yes [id number] 5mL Take 5 mL [facility] mine-pseudo 0-10 by mouth 4 it y of ephedrine-D 00:00: (four) [place] (BROMFED 00 times Medical DM) 2-30-10 daily as Bran ch mg/5 mL needed for syrup Congestion /Allergies . benzonatate 2021-04 Yes [id number] 200mg Take 2 [facility] 100 mg 0-10 capsules ity of capsule 00:00: by mouth [place] 00 every 8 Medical (eight) Branch hours as needed for Cough. bromphenira 2021-04 Yes [id number] 5mL Take 5 mL [facility] mine-pseudo 0-10 by mouth 4 it y of ephedrine-D 00:00: (four) [place] (BROMFED 00 times Medical DM) 2-30-10 daily as Bran ch mg/5 mL needed for syrup Congestion /Allergies . bromphenira 2021-04 Yes [id number] 5mL Take 5 mL [facility] mine-pseudo 0-10 by mouth 4 it y of ephedrine-D 00:00: (four) [place] (BROMFED 00 times Medical DM) 2-30-10 daily as Bran ch mg/5 mL needed for syrup Congestion /Allergies . bromphenira 2021-04 Yes [id number] 5mL Take 5 mL [facility] mine-pseudo 0-10 by mouth 4 it y of ephedrine-D 00:00: (four) [place] (BROMFED 00 times Medical DM) 2-30-10 daily as Bran ch mg/5 mL needed for syrup Congestion /Allergies . bromphenira 2021-04 Yes [id number] 5mL Take 5 mL [facility] mine-pseudo 0-10 by mouth 4 it y of ephedrine-D 00:00: (four) [place] (BROMFED 00 times Medical DM) 2-30-10 daily as Bran ch mg/5 mL needed for syrup Congestion /Allergies . bromphenira 2021-04 Yes [id number] 5mL Take 5 mL [facility] mine-pseudo 0-10 by mouth 4 it y of ephedrine-D 00:00: (four) [place] (BROMFED 00 times Medical DM) 2-30-10 daily as Bran ch mg/5 mL needed for syrup Congestion /Allergies . bromphenira 2021-04 Yes [id number] 5mL Take 5 mL [facility] mine-pseudo 0-10 by mouth 4 it y of ephedrine-D 00:00: (four) [place] (BROMFED 00 times Medical DM) 2-30-10 daily as Bran ch mg/5 mL needed for syrup Congestion /Allergies . bromphenira 2021-04 Yes [id number] 5mL Take 5 mL [facility] mine-pseudo 0-10 by mouth 4 it y of ephedrine-D 00:00: (four) [place] (BROMFED 00 times Medical DM) 2-30-10 daily as Bran ch mg/5 mL needed for syrup Congestion /Allergies . bromphenira 2021-04 Yes [id number] 5mL Take 5 mL [facility] mine-pseudo 0-10 by mouth 4 it y of ephedrine-D 00:00: (four) [place] (BROMFED 00 times Medical DM) 2-30-10 daily as Bran ch mg/5 mL needed for syrup Congestion /Allergies . bromphenira 2021-04 Yes [id number] 5mL Take 5 mL [facility] mine-pseudo 0-10 by mouth 4 it y of ephedrine-D 00:00: (four) [place] (BROMFED 00 times Medical DM) 2-30-10 daily as Bran ch mg/5 mL needed for syrup Congestion /Allergies . bromphenira 2021-04 Yes [id number] 5mL Take 5 mL [facility] mine-pseudo 0-10 by mouth 4 it y of ephedrine-D 00:00: (four) [place] (BROMFED 00 times Medical DM) 2-30-10 daily as Bran ch mg/5 mL needed for syrup Congestion /Allergies . bromphenira 2021-04 Yes [id number] 5mL Take 5 mL [facility] mine-pseudo 0-10 by mouth 4 it y of ephedrine-D 00:00: (four) [place] (BROMFED 00 times Medical DM) 2-30-10 daily as Bran ch mg/5 mL needed for syrup Congestion /Allergies . bromphenira 2021-04 Yes [id number] 5mL Take 5 mL [facility] mine-pseudo 0-10 by mouth 4 it y of ephedrine-D 00:00: (four) [place] (BROMFED 00 times Medical DM) 2-30-10 daily as Bran ch mg/5 mL needed for syrup Congestion /Allergies . bromphenira 2022-1 Yes [id number] 5mL Take 5 mL [facility] mine-pseudo 0-10 by mouth 4 it y of ephedrine-D 00:00: (four) [place] (BROMFED 00 times Medical DM) 2-30-10 daily as Bran ch mg/5 mL needed for syrup Congestion /Allergies . bromphenira 2021-04 Yes [id number] 5mL Take 5 mL [facility] mine-pseudo 0-10 by mouth 4 it y of ephedrine-D 00:00: (four) [place] (BROMFED 00 times Medical DM) 2-30-10 daily as Bran ch mg/5 mL needed for syrup Congestion /Allergies . bromphenira 2021-04 Yes [id number] 5mL Take 5 mL [facility] mine-pseudo 0-10 by mouth 4 it y of ephedrine-D 00:00: (four) [place] (BROMFED 00 times Medical DM) 2-30-10 daily as Bran ch mg/5 mL needed for syrup Congestion /Allergies . bromphenira 2021-04 Yes [id number] 5mL Take 5 mL [facility] mine-pseudo 0-10 by mouth 4 it y of ephedrine-D 00:00: (four) [place] (BROMFED 00 times Medical DM) 2-30-10 daily as Bran ch mg/5 mL needed for syrup Congestion /Allergies . bromphenira 2021-04 Yes [id number] 5mL Take 5 mL [facility] mine-pseudo 0-10 by mouth 4 it y of ephedrine-D 00:00: (four) [place] (BROMFED 00 times Medical DM) 2-30-10 daily as Bran ch mg/5 mL needed for syrup Congestion /Allergies . bromphenira 2021-04 Yes [id number] 5mL Take 5 mL [facility] mine-pseudo 0-10 by mouth 4 it y of ephedrine-D 00:00: (four) [place] (BROMFED 00 times Medical DM) 2-30-10 daily as Bran ch mg/5 mL needed for syrup Congestion /Allergies . bromphenira 2021-04 Yes [id number] 5mL Take 5 mL [facility] mine-pseudo 0-10 by mouth 4 it y of ephedrine-D 00:00: (four) [place] (BROMFED 00 times Medical DM) 2-30-10 daily as Bran ch mg/5 mL needed for syrup Congestion /Allergies . bromphenira 2021-04 Yes [id number] 5mL Take 5 mL [facility] mine-pseudo 0-10 by mouth 4 it y of ephedrine-D 00:00: (four) [place] (BROMFED 00 times Medical DM) 2-30-10 daily as Bran ch mg/5 mL needed for syrup Congestion /Allergies . bromphenira 2021-04 Yes [id number] 5mL Take 5 mL [facility] mine-pseudo 0-10 by mouth 4 it y of ephedrine-D 00:00: (four) [place] (BROMFED 00 times Medical DM) 2-30-10 daily as Bran ch mg/5 mL needed for syrup Congestion /Allergies . bromphenira 2021-04 Yes [id number] 5mL Take 5 mL [facility] mine-pseudo 0-10 by mouth 4 it y of ephedrine-D 00:00: (four) [place] (BROMFED 00 times Medical DM) 2-30-10 daily as Bran ch mg/5 mL needed for syrup Congestion /Allergies . bromphenira 2021-04 Yes [id number] 5mL Take 5 mL [facility] mine-pseudo 0-10 by mouth 4 it y of ephedrine-D 00:00: (four) [place] (BROMFED 00 times Medical DM) 2-30-10 daily as Bran ch mg/5 mL needed for syrup Congestion /Allergies . bromphenira 2021-04 Yes [id number] 5mL Take 5 mL [facility] mine-pseudo 0-10 by mouth 4 it y of ephedrine-D 00:00: (four) [place] (BROMFED 00 times Medical DM) 2-30-10 daily as Bran ch mg/5 mL needed for syrup Congestion /Allergies . bromphenira 2021-04 Yes [id number] 5mL Take 5 mL [facility] mine-pseudo 0-10 by mouth 4 it y of ephedrine-D 00:00: (four) [place] (BROMFED 00 times Medical DM) 2-30-10 daily as Bran ch mg/5 mL needed for syrup Congestion /Allergies . bromphenira 2021-04 Yes [id number] 5mL Take 5 mL [facility] mine-pseudo 0-10 by mouth 4 it y of ephedrine-D 00:00: (four) [place] (BROMFED 00 times Medical DM) 2-30-10 daily as Bran ch mg/5 mL needed for syrup Congestion /Allergies . bromphenira 2021-04 Yes [id number] 5mL Take 5 mL [facility] mine-pseudo 0-10 by mouth 4 it y of ephedrine-D 00:00: (four) [place] (BROMFED 00 times Medical DM) 2-30-10 daily as Bran ch mg/5 mL needed for syrup Congestion /Allergies . bromphenira 2021-04 Yes [id number] 5mL Take 5 mL [facility] mine-pseudo 0-10 by mouth 4 it y of ephedrine-D 00:00: (four) [place] (BROMFED 00 times Medical DM) 2-30-10 daily as Bran ch mg/5 mL needed for syrup Congestion /Allergies . bromphenira 2021-04 Yes [id number] 5mL Take 5 mL [facility] mine-pseudo 0-10 by mouth 4 it y of ephedrine-D 00:00: (four) [place] (BROMFED 00 times Medical DM) 2-30-10 daily as Bran ch mg/5 mL needed for syrup Congestion /Allergies . bromphenira 2021-04 Yes [id number] 5mL Take 5 mL [facility] mine-pseudo 0-10 by mouth 4 it y of ephedrine-D 00:00: (four) [place] (BROMFED 00 times Medical DM) 2-30-10 daily as Bran ch mg/5 mL needed for syrup Congestion /Allergies . bromphenira 2021-04 Yes [id number] 5mL Take 5 mL [facility] mine-pseudo 0-10 by mouth 4 it y of ephedrine-D 00:00: (four) [place] (BROMFED 00 times Medical DM) 2-30-10 daily as Bran ch mg/5 mL needed for syrup Congestion /Allergies . bromphenira 2021-04- No [id number] 5mL Take 5 mL [facility] mine-pseudo 0-10 02-18 by mouth 4 i ty of ephedrine-D 00:00: 00:00 (four) [place] (BROMFED 00 :00 times Medical DM) 2-30-10 daily as Bran ch mg/5 mL needed for syrup Congestion /Allergies . benzonatate 2021-04 No [id number] 200mg Take 2 [facility] 100 mg 0-10 11-03 capsules ity of capsule 00:00: 00:00 by mouth [place] 00 :00 every 8 Medical (eight) Branch hours as needed for Cough. ondansetron 2021-04- No [id number] 4mg Take 1 [facility] 4 mg 0-10 10-25 tablet by ity of disintegrat 00:00: 00:00 [place] tablet 00 :00 every 8 Medica l (eight) Branch hours as needed for Nausea and Vomiting (N/V). fluticasone 2021-04 Yes [id number] 1{spray Use 1 [facility] propionate 0-06 } [place] in ity o f 50 00:00: each [place] mcg/actuati 00 nostril in Me dical on nasal the Branch spray morning. Use 2 spray(s) in each nostril once daily fluticasone 2021-04 Yes [id number] 1{spray Use 1 [facility] propionate 0-06 } [place] in ity o f 50 00:00: each [place] mcg/actuati 00 nostril in Me dical on nasal the Branch spray morning. Use 2 spray(s) in each nostril once daily fluticasone 2021-04- No [id number] 1{spray Use 1 [facility] propionate 0-06 10-11 } [place] in ity of 50 00:00: 00:00 each [place] mcg/actuati 00 :00 nostril in Me dical on nasal the Branch spray morning. Use 2 spray(s) in each nostril once daily fluticasone 2021-04- No [id number] 1{spray Use 1 [facility] propionate 0-06 10-11 } [place] in ity of 50 00:00: 00:00 each [place] mcg/actuati 00 :00 nostril in Me dical on nasal the Branch spray morning. Use 2 spray(s) in each nostril once daily fluticasone 2021-04- No [id number] 1{spray Use 1 [facility] propionate 0-06 10-11 } [place] in ity of 50 00:00: 00:00 each [place] mcg/actuati 00 :00 nostril in Me dical on nasal the Branch spray morning. Use 2 spray(s) in each nostril once daily fluticasone 2021-04- No [id number] 1{spray Use 1 [facility] propionate 0-06 10-11 } [place] in ity of 50 00:00: 00:00 each [place] mcg/actuati 00 :00 [place] in [place] on nasal the Branch spray morning. [...] of ophthalmic 16:03: drops [place] drops 24 [facility] Yes Pylera 140 Univers ronidazole- 9-26 mg-125 ity of tetracyclin 16:03: mg-125 mg [place] (PYLERA) 24 capsule Medica l 140-125-125 Branch mg per capsule doxycycline Yes doxycyclin [facility] hyclate 100 9-26 e hyclate ity of mg capsule 16:03: 100 mg [place] [address] capsule [facility] atropine 1 Yes atropine 1 U nivers % 9-26 % eye ity of ophthalmic 16:03: drops [place] drops 24 [facility] Yes Pylera 140 Univers ronidazole- 9-26 mg-125 ity of tetracyclin 16:03: mg-125 mg [place] (PYLERA) 24 capsule Medica l 140-125-125 Branch mg per capsule doxycycline Yes doxycyclin [facility] hyclate 100 9-26 e hyclate ity of mg capsule 16:03: 100 mg [place] [address] capsule [facility] atropine 1 Yes atropine 1 U nivers % 9-26 % eye ity of ophthalmic 16:03: drops [place] drops 24 [facility] Yes Pylera 140 Univers ronidazole- 9-26 mg-125 ity of tetracyclin 16:03: mg-125 mg [place] (PYLERA) 24 capsule Medica l 140-125-125 Branch mg per capsule doxycycline Yes doxycyclin [facility] hyclate 100 9-26 e hyclate ity of mg capsule 16:03: 100 mg [place] [address] capsule Medical Branch atropine 1 Yes atropine 1 U nivers % 9-26 % eye ity of ophthalmic 16:03: drops [place] drops 24 Medical Branch [facility] [place] Yes Pylera 140 [facility] ronidazole- 9-26 mg-125 ity of tetracyclin 16:03: mg-125 mg [place] (PYLERA) 24 capsule Medica l 140-125-125 Branch mg per capsule doxycycline Yes doxycyclin [facility] hyclate 100 9-26 e hyclate ity of mg capsule 16:03: 100 mg [place] [address] capsule Medical Branch atropine 1 Yes atropine 1 U nivers % 9-26 % eye ity of ophthalmic 16:03: drops [place] drops [address] [place] [address] Yes Pylera 140 [facility] ronidazole- 9-26 mg-125 ity of tetracyclin 16:03: mg-125 mg [place] (PYLERA) 24 capsule Medica l 140-125-125 Branch mg per capsule doxycycline Yes doxycyclin [facility] hyclate 100 9-26 e hyclate ity of mg capsule 16:03: 100 mg [place] [address] capsule Medical Branch atropine 1 Yes atropine 1 U nivers % 9-26 % eye ity of ophthalmic 16:03: drops [place] drops [address] [place] [address] Yes Pylera 140 [facility] ronidazole- 9-26 mg-125 ity of tetracyclin 16:03: mg-125 mg [place] (PYLERA) 24 capsule Medica l 140-125-125 Branch mg per capsule doxycycline Yes doxycyclin [facility] hyclate 100 9-26 e hyclate ity of mg capsule 16:03: 100 mg [place] [address] capsule Medical Branch atropine 1 Yes atropine 1 U nivers % 9-26 % eye ity of ophthalmic 16:03: drops [place] drops 24 Medical Branch [facility] [place] Yes Pylera 140 [facility] ronidazole- 9-26 mg-125 ity of tetracyclin 16:03: mg-125 mg [place] (PYLERA) 24 capsule Medica l 140-125-125 Branch mg per capsule doxycycline Yes doxycyclin [facility] hyclate 100 9-26 e hyclate ity of mg capsule 16:03: 100 mg [place] [address] capsule Medical Branch atropine 1 Yes atropine 1 U nivers % 9-26 % eye ity of ophthalmic 16:03: drops [place] drops 24 Medical [facility] Yes Pylera 140 Univers ronidazole- 9-26 mg-125 ity of tetracyclin 16:03: mg-125 mg [place] (PYLERA) 24 capsule Medica l 140-125-125 Branch mg per capsule doxycycline Yes doxycyclin [facility] hyclate 100 9-26 e hyclate ity of mg capsule 16:03: 100 mg [place] [address] capsule Medical Branch atropine 1 Yes atropine 1 U nivers % 9-26 % eye ity of ophthalmic 16:03: drops [place] drops 24 [facility] Yes Pylera 140 Univers ronidazole- 9-26 mg-125 ity of tetracyclin 16:03: mg-125 mg [place] (PYLERA) 24 capsule Medica l 140-125-125 Branch mg per capsule doxycycline Yes doxycyclin [facility] hyclate 100 9-26 e hyclate ity of mg capsule 16:03: 100 mg [place] [address] capsule Medical Branch atropine 1 Yes atropine 1 U nivers % 9-26 % eye ity of ophthalmic 16:03: drops [place] drops 24 [facility] Yes Pylera 140 Univers ronidazole- 9-26 mg-125 ity of tetracyclin 16:03: mg-125 mg [place] (PYLERA) 24 capsule Medica l 140-125-125 Branch mg per capsule doxycycline Yes doxycyclin [facility] hyclate 100 9-26 e hyclate ity of mg capsule 16:03: 100 mg [place] [address] capsule Medical Branch atropine 1 Yes atropine 1 U nivers % 9-26 % eye ity of ophthalmic 16:03: drops [place] drops 24 Medical [facility] Yes Pylera 140 Univers ronidazole- 9-26 mg-125 ity of tetracyclin 16:03: mg-125 mg [place] (PYLERA) 24 capsule Medica l 140-125-125 Branch mg per capsule doxycycline Yes doxycyclin [facility] hyclate 100 9-26 e hyclate ity of mg capsule 16:03: 100 mg [place] [address] capsule Medical Branch atropine 1 Yes atropine 1 U nivers % 9-26 % eye ity of ophthalmic 16:03: drops [place] drops 24 Medical Branch [facility], [place], [facility] Yes [place] 140 Univers ronidazole- 9-26 mg-125 ity of tetracyclin 16:03: mg-125 mg [place] (PYLERA) 24 capsule Medica l 140-125-125 Branch mg per capsule doxycycline Yes doxycyclin Univers hyclate 100 9-26 e hyclate ity of mg capsule 16:03: 100 mg [place] [address] capsule Medical Branch atropine 1 Yes atropine 1 U nivers % 9-26 % eye ity of ophthalmic 16:03: drops [place] drops 24 Medical [facility] Yes Pylera 140 Univers ronidazole- 9-26 mg-125 ity of tetracyclin 16:03: mg-125 mg [place] (PYLERA) 24 capsule Medica l 140-125-125 Branch mg per capsule doxycycline Yes doxycyclin Univers hyclate 100 9-26 e hyclate ity of mg capsule 16:03: 100 mg [place] [address] capsule Medical Branch atropine 1 Yes atropine 1 U nivers % 9-26 % eye ity of ophthalmic 16:03: drops [place] drops 24 Medical [facility] Yes [place] 140 Univers ronidazole- 9-26 mg-125 ity of tetracyclin 16:03: mg-125 mg [place] (PYLERA) 24 capsule Medica l 140-125-125 Branch mg per capsule doxycycline Yes doxycyclin Univers hyclate 100 9-26 e hyclate ity of mg capsule 16:03: 100 mg [place] [address] capsule Medical Branch atropine 1 Yes atropine 1 U nivers % 9-26 % eye ity of ophthalmic 16:03: drops [place] drops 24 Medical Branch [facility], [place], [facility] 2022-0 Yes [place]ylera 140 [facility] ronidazole- 9-26 mg-125 [...] 16:03: drops [place] drops 24 Medical Branch [facility] Yes [place] 140 [facility] ronidazole- 9-26 mg-125 [...] 16:03: drops [place] drops 24 Medical Branch [facility] Yes [place] 140 [facility] ronidazole- 9-26 mg-125 [...] ity of mg capsule 16:03: 100 mg [place] [address] capsule Medical Branch atropine 1 Yes atropine 1 U nivers % 9-26 % eye ity of ophthalmic 16:03: drops [place] drops Medical [facility] Yes [place] 140 [facility] ronidazole- 9-26 mg-125 ity of tetracyclin 16:03: mg-125 mg [place] (PYLERA) 24 capsule Medica l 140-125-125 Branch mg per capsule doxycycline Yes doxycyclin Univers hyclate 100 9-26 e hyclate ity of mg capsule 16:03: 100 mg [place] [address] capsule Medical Branch atropine 1 Yes atropine 1 U nivers % 9-26 % eye ity of ophthalmic 16:03: drops [place] drops 24 Medical [facility] Yes [place] 140 Univers ronidazole- 9-26 mg-125 ity of tetracyclin 16:03: mg-125 mg [place] (PYLERA) 24 capsule Medica l 140-125-125 Branch mg per capsule doxycycline Yes doxycyclin Univers hyclate 100 9-26 e hyclate ity of mg capsule 16:03: 100 mg [place] [address] capsule Medical Branch atropine 1 Yes atropine 1 U nivers % 9-26 % eye ity of ophthalmic 16:03: drops [place] drops 24 Medical [facility] Yes [place] 140 [facility] ronidazole- 9-26 mg-125 ity of tetracyclin 16:03: mg-125 mg [place] (PYLERA) 24 capsule Medica l 140-125-125 Branch mg per capsule doxycycline Yes doxycyclin Univers hyclate 100 9-26 e hyclate ity of mg capsule 16:03: 100 mg [place] [address] capsule Medical Branch atropine 1 Yes atropine [...] 16:03: drops [place] drops 24 Medical Branch [facility] Yes Pylera 140 [facility] ronidazole- 9-26 mg-125 [...] 16:03: drops [place] drops 24 Medical Branch [facility] Yes Pyl[place] 140 [facility] ronidazole- 9-26 mg-125 [...] 16:03: drops [place] drops 24 Medical Branch [facility] Yes Pylera 140 [facility] ronidazole- 9-26 mg-125 [...] of ophthalmic 16:03: drops [place] drops 24 [facility] Branch atropine 1 Yes atropine 1 U nivers % 9-26 % eye ity of ophthalmic 16:03: drops [place] drops 24 [facility] atropine 1 Yes atropine 1 U nivers % 9-26 % eye ity of ophthalmic 16:03: drops [place] drops 24 [facility] Branch atropine 1 Yes atropine 1 U nivers % 9-26 % eye ity of ophthalmic 16:03: drops [place] drops 24 [facility] atropine 1 Yes atropine 1 U nivers % 9-26 % eye ity of ophthalmic 16:03: drops [place] drops 24 [facility] Branch atropine 1 Yes atropine 1 U nivers % 9-26 % eye ity of ophthalmic 16:03: drops [place] drops 24 [facility] Branch atropine 1 Yes atropine 1 U nivers % 9-26 % eye ity of ophthalmic 16:03: drops [place] drops 24 [facility] Branch atropine 1 Yes atropine 1 U [...] of ophthalmic 16:03: drops [place] drops 24 [facility] Branch atropine 1 Yes atropine 1 U [...] of ophthalmic 16:03: drops [place] drops 24 [facility] Branch atropine 1 Yes atropine 1 U nivers % 9-26 % eye ity of ophthalmic 16:03: drops [place] drops 24 [facility] Branch atropine 1 Yes atropine 1 U nivers % 9-26 % eye ity of ophthalmic 16:03: drops [place] drops [address] [place] [address] Branch atropine 1 Yes atropine 1 U nivers % 9-26 % eye ity of ophthalmic 16:03: drops [place] drops [address] [place] [address] Branch atropine 1 Yes atropine 1 U nivers % 9-26 % eye ity of ophthalmic 16:03: drops [place] drops [address] [place] [address] Branch atropine 1 Yes atropine 1 U nivers % 9-26 % eye ity of ophthalmic 16:03: drops [place] drops 24 [facility] Branch atropine 1 Yes atropine 1 U nivers % 9-26 % eye ity of ophthalmic 16:03: drops [place] drops 24 [facility] Branch atropine 1 Yes atropine 1 U nivers % 9-26 % eye ity of ophthalmic 16:03: drops [place] drops 24 [facility] Branch atropine 1 Yes atropine 1 U nivers % 9-26 % eye ity of ophthalmic 16:03: drops [place] drops 24 [facility] Branch atropine 1 Yes atropine 1 U nivers % 9-26 % eye ity of ophthalmic 16:03: drops [place] drops 24 [facility] Branch meloxicam Yes [id number] 7.5mg Take 1 Univers (MOBIC) 7.5 9-26 tablet by ity of mg tablet 00:00: mouth once [place] 00 daily as Medical needed for Branch Pain (scale 7-10) (use sparingly due to side effects). baclofen 5 2021-0 Yes [id number] 5mg Take 1 Univers mg tablet 9-26 tablet by ity o f 00:00: mouth 3 [place] 00 (three) Medical times Branch daily as needed (muscle pain or spasm). meloxicam 2021-0 Yes [id number] 7.5mg Take 1 Univers (MOBIC) 7.5 9-26 tablet by ity of mg tablet 00:00: mouth once [place] 00 daily as Medical needed for Branch Pain (scale 7-10) (use sparingly due to side effects). baclofen 5 2021-0 Yes [id number] 5mg Take 1 [facility] mg tablet 9-26 tablet by ity o f 00:00: mouth 3 (three) Medical times Branch daily as needed (muscle pain or spasm). meloxicam 2021-0 Yes [id number] 7.5mg Take 1 Univers (MOBIC) 7.5 9-26 tablet by ity of mg tablet 00:00: mouth once [place] 00 daily as Medical needed for Branch Pain (scale 7-10) (use sparingly due to side effects). baclofen 5 2021-0 Yes [id number] 5mg Take 1 [facility] mg tablet 9-26 tablet by ity o f 00:00: mouth 3 00 (three) Medical times Branch daily as needed (muscle pain or spasm). meloxicam 2021-0 Yes [id number] 7.5mg Take 1 Univers (MOBIC) 7.5 9-26 tablet by ity of mg tablet 00:00: mouth once [place] 00 daily as Medical needed for Branch Pain (scale 7-10) (use sparingly due to side effects). baclofen 5 2021-0 Yes [id number] 5mg Take 1 [facility] mg tablet 9-26 tablet by ity o f 00:00: mouth 3 [place] 00 (three) Medical times Branch daily as needed (muscle pain or spasm). meloxicam 2021-0 Yes [id number] 7.5mg Take 1 Univers (MOBIC) 7.5 9-26 tablet by ity of mg tablet 00:00: mouth once [place] 00 daily as Medical needed for Branch Pain (scale 7-10) (use sparingly due to side effects). baclofen 5 2021-0 Yes [id number] 5mg Take 1 [facility] mg tablet 9-26 tablet by ity o f 00:00: mouth 3 (three) Medical times Branch daily as needed (muscle pain or spasm). meloxicam 2021-0 Yes [id number] 7.5mg Take 1 Univers (MOBIC) 7.5 9-26 tablet by ity of mg tablet 00:00: mouth once [place] 00 daily as Medical needed for Branch Pain (scale 7-10) (use sparingly due to side effects). baclofen 5 2021-0 Yes [id number] 5mg Take 1 [facility] mg tablet 9-26 tablet by ity o f 00:00: mouth 3 (three) Medical times Branch daily as needed (muscle pain or spasm). pantoprazol 2021-0 Yes Univer s e 40 mg EC 9-26 ity of tablet 00:00: 00 Medical Branch meloxicam 2021-0 Yes [id number] 7.5mg Take 1 Univers (MOBIC) 7.5 9-26 tablet by ity of mg tablet 00:00: mouth once [place] 00 daily as Medical needed for Branch Pain (scale 7-10) (use sparingly due to side effects). baclofen 5 2021-0 Yes [id number] 5mg Take 1 [facility] mg tablet 9-26 tablet by ity o f 00:00: mouth 3 (three) Medical times Branch daily as needed (muscle pain or spasm). pantoprazol 2021-0 Yes Univer s e 40 mg EC 9-26 ity of tablet 00:00: 00 Medical Branch meloxicam 2021-0 Yes [id number] 7.5mg Take 1 Univers (MOBIC) 7.5 9-26 tablet by ity of mg tablet 00:00: mouth once [place] 00 daily as Medical needed for Branch Pain (scale 7-10) (use sparingly due to side effects). baclofen 5 2021-0 Yes [id number] 5mg Take 1 [facility] mg tablet 9-26 tablet by ity o f 00:00: mouth 3 00 (three) Medical times Branch daily as needed (muscle pain or spasm). pantoprazol 2021-0 Yes Univer s e 40 mg EC 9-26 ity of tablet 00:00: Medical Branch meloxicam 2021-0 Yes [id number] 7.5mg Take 1 Univers (MOBIC) 7.5 9-26 tablet by ity of mg tablet 00:00: mouth once [place] 00 daily as Medical needed for Branch Pain (scale 7-10) (use sparingly due to side effects). baclofen 5 2021-0 Yes [id number] 5mg Take 1 [facility] mg tablet 9-26 tablet by ity o f 00:00: mouth 3 (three) Medical times Branch daily as needed (muscle pain or spasm). pantoprazol 0 Yes Univer s e 40 mg EC 9-26 ity of tablet 00:00: Medical Branch meloxicam 2021-0 Yes [id number] 7.5mg Take 1 Univers (MOBIC) 7.5 9-26 tablet by ity of mg tablet 00:00: mouth once [place] 00 daily as Medical needed for Branch Pain (scale 7-10) (use sparingly due to side effects). baclofen 5 2021-0 Yes [id number] 5mg Take 1 [facility] mg tablet 9-26 tablet by ity o f 00:00: mouth 3 (three) Medical times Branch daily as needed (muscle pain or spasm). pantoprazol 2021-0 Yes Univer s e 40 mg EC 9-26 ity of tablet 00:00: Medical Branch meloxicam 2021-0 Yes [id number] 7.5mg Take 1 Univers (MOBIC) 7.5 9-26 tablet by ity of mg tablet 00:00: mouth once [place] 00 daily as Medical needed for Branch Pain (scale 7-10) (use sparingly due to side effects). baclofen 5 2021-0 Yes [id number] 5mg Take 1 [facility] mg tablet 9-26 tablet by ity o f 00:00: mouth 3 (three) Medical times Branch daily as needed (muscle pain or spasm). pantoprazol 2021-0 Yes Univer s e 40 mg EC 9-26 ity of tablet 00:00: Medical Branch meloxicam 2021-0 Yes [id number] 7.5mg Take 1 Univers (MOBIC) 7.5 9-26 tablet by ity of mg tablet 00:00: mouth once [place] 00 daily as Medical needed for Branch Pain (scale 7-10) (use sparingly due to side effects). baclofen 5 2021-0 Yes [id number] 5mg Take 1 [facility] mg tablet 9-26 tablet by ity o f 00:00: mouth 3 (three) Medical times Branch daily as needed (muscle pain or spasm). pantoprazol 2021-0 Yes Univer s e 40 mg EC 9-26 ity of tablet 00:00: Medical Branch meloxicam 2021-0 Yes [id number] 7.5mg Take 1 Univers (MOBIC) 7.5 9-26 tablet by ity of mg tablet 00:00: mouth once [place] 00 daily as Medical needed for Branch Pain (scale 7-10) (use sparingly due to side effects). baclofen 5 2021-0 Yes [id number] 5mg Take 1 [facility] mg tablet 9-26 tablet by ity o f 00:00: mouth 3 (three) Medical times Branch daily as needed (muscle pain or spasm). pantoprazol 2021-0 Yes Univer s e 40 mg EC 9-26 ity of tablet 00:00: Medical Branch meloxicam 2021-0 Yes [id number] 7.5mg Take 1 [facility] (MOBIC) 7.5 9-26 tablet by ity of mg tablet 00:00: mouth once [place] 00 daily as Medical needed for Branch Pain (scale 7-10) (use sparingly due to side effects). baclofen 5 2021-0 Yes [id number] 5mg Take 1 [facility] mg tablet 9-26 tablet by ity o f 00:00: mouth 3 (three) Medical times Branch daily as needed (muscle pain or spasm). pantoprazol 2021-0 Yes Univer s e 40 mg EC 9-26 ity of tablet 00:00: Medical Branch meloxicam 2021-0 Yes [id number] 7.5mg Take 1 Univers (MOBIC) 7.5 9-26 tablet by ity of mg tablet 00:00: mouth once [place] 00 daily as Medical needed for Branch Pain (scale 7-10) (use sparingly due to side effects). baclofen 5 2021-0 Yes [id number] 5mg Take 1 [facility] mg tablet 9-26 tablet by ity o f 00:00: mouth 3 (three) Medical times Branch daily as needed (muscle pain or spasm). pantoprazol 2021-0 Yes Univer s e 40 mg EC 9-26 ity of tablet 00:00: Medical Branch meloxicam 2021-0 Yes [id number] 7.5mg Take 1 Univers (MOBIC) 7.5 9-26 tablet by ity of mg tablet 00:00: mouth once [place] 00 daily as Medical needed for Branch Pain (scale 7-10) (use sparingly due to side effects). baclofen 5 2021-0 Yes [id number] 5mg Take 1 [facility] mg tablet 9-26 tablet by ity o f 00:00: mouth 3 (three) Medical times Branch daily as needed (muscle pain or spasm). pantoprazol 2021-0 Yes Univer s e 40 mg EC 9-26 ity of tablet 00:00: Medical Branch meloxicam 2021-0 Yes [id number] 7.5mg Take 1 Univers (MOBIC) 7.5 9-26 tablet by ity of mg tablet 00:00: mouth once [place] 00 daily as Medical needed for Branch Pain (scale 7-10) (use sparingly due to side effects). baclofen 5 2021-0 Yes [id number] 5mg Take 1 [facility] mg tablet 9-26 tablet by ity o f 00:00: mouth 3 (three) Medical times Branch daily as needed (muscle pain or spasm). pantoprazol 2021-0 Yes Univer s e 40 mg EC 9-26 ity of tablet 00:00: Medical Branch meloxicam 2021-0 Yes [id number] 7.5mg Take 1 Univers (MOBIC) 7.5 9-26 tablet by ity of mg tablet 00:00: mouth once [place] 00 daily as Medical needed for Branch Pain (scale 7-10) (use sparingly due to side effects). baclofen 5 2021-0 Yes [id number] 5mg Take 1 [facility] mg tablet 9-26 tablet by ity o f 00:00: mouth 3 (three) Medical times Branch daily as needed (muscle pain or spasm). pantoprazol 2021-0 Yes Univer s e 40 mg EC 9-26 ity of tablet 00:00: Medical Branch meloxicam 2021-0 Yes [id number] 7.5mg Take 1 [facility] (MOBIC) 7.5 9-26 tablet by ity of mg tablet 00:00: mouth once [place] 00 daily as Medical needed for Branch Pain (scale 7-10) (use sparingly due to side effects). baclofen 5 2021-0 Yes [id number] 5mg Take 1 [facility] mg tablet 9-26 tablet by ity o f 00:00: mouth 3 (three) Medical times Branch daily as needed (muscle pain or spasm). pantoprazol 0 Yes Univer s e 40 mg EC 9-26 ity of tablet 00:00: Medical Branch meloxicam 2021-0 Yes [id number] 7.5mg Take 1 Univers (MOBIC) 7.5 9-26 tablet by ity of mg tablet 00:00: mouth once [place] 00 daily as Medical needed for Branch Pain (scale 7-10) (use sparingly due to side effects). baclofen 5 0 Yes [id number] 5mg Take 1 [facility] mg tablet 9-26 tablet by ity o f 00:00: mouth 3 (three) Medical times Branch daily as needed (muscle pain or spasm). pantoprazol 2021-0 Yes Univer s e 40 mg EC 9-26 ity of tablet 00:00: Medical Branch meloxicam 2021-0 Yes [id number] 7.5mg Take 1 Univers (MOBIC) 7.5 9-26 tablet by ity of mg tablet 00:00: mouth once [place] 00 daily as Medical needed for Branch Pain (scale 7-10) (use sparingly due to side effects). baclofen 5 2021-0 Yes [id number] 5mg Take 1 [facility] mg tablet 9-26 tablet by ity o f 00:00: mouth 3 (three) Medical times Branch daily as needed (muscle pain or spasm). pantoprazol 2021-0 Yes Univer s e 40 mg EC 9-26 ity of tablet 00:00: Medical Branch meloxicam 2021-0 Yes [id number] 7.5mg Take 1 Univers (MOBIC) 7.5 9-26 tablet by ity of mg tablet 00:00: mouth once [place] 00 daily as Medical needed for Branch Pain (scale 7-10) (use sparingly due to side effects). baclofen 5 2021-0 Yes [id number] 5mg Take 1 [facility] mg tablet 9-26 tablet by ity o f 00:00: mouth 3 00 (three) Medical times Branch daily as needed (muscle pain or spasm). pantoprazol 2021-0 Yes Univer s e 40 mg EC 9-26 ity of tablet 00:00: 00 Medical Branch meloxicam 2021-0 Yes [id number] 7.5mg Take 1 [facility] (MOBIC) 7.5 9-26 tablet by ity of mg tablet 00:00: mouth once [place] 00 daily as Medical needed for Branch Pain (scale 7-10) (use sparingly due to side effects). baclofen 5 2021-0 Yes [id number] 5mg Take 1 [facility] mg tablet 9-26 tablet by ity o f 00:00: mouth 3 (three) Medical times Branch daily as needed (muscle pain or spasm). pantoprazol 2021-0 Yes Univer s e 40 mg EC 9-26 ity of tablet 00:00: Medical Branch meloxicam 2021-0 Yes [id number] 7.5mg Take 1 [facility] (MOBIC) 7.5 9-26 tablet by ity of mg tablet 00:00: mouth once [place] 00 daily as Medical needed for Branch Pain (scale 7-10) (use sparingly due to side effects). baclofen 5 2021-0 Yes [id number] 5mg Take 1 [facility] mg tablet 9-26 tablet by ity o f 00:00: mouth 3 (three) Medical times Branch daily as needed (muscle pain or spasm). pantoprazol 2021-0 Yes Univer s e 40 mg EC 9-26 ity of tablet 00:00: Medical Branch meloxicam 2021-0 Yes [id number] 7.5mg Take 1 [facility] (MOBIC) 7.5 9-26 tablet by ity of mg tablet 00:00: mouth once [place] 00 daily as Medical needed for Branch Pain (scale 7-10) (use sparingly due to side effects). baclofen 5 2022-0 Yes [id number] 5mg Take 1 [facility] mg tablet 9-26 tablet by ity o f 00:00: mouth 3 (three) Medical times Branch daily as needed (muscle pain or spasm). pantoprazol 2021-0 Yes Univer s e 40 mg EC 9-26 ity of tablet 00:00: Medical Branch meloxicam 2021-0 Yes [id number] 7.5mg Take 1 [facility] (MOBIC) 7.5 9-26 tablet by ity of mg tablet 00:00: mouth once [place] 00 daily as Medical needed for Branch Pain (scale 7-10) (use sparingly due to side effects). baclofen 5 2021-0 Yes [id number] 5mg Take 1 [facility] mg tablet 9-26 tablet by ity o f 00:00: mouth 3 (three) Medical times Branch daily as needed (muscle pain or spasm). pantoprazol 2021-0 Yes Univer s e 40 mg EC 9-26 ity of tablet 00:00: Medical Branch meloxicam 2021-0 Yes [id number] 7.5mg Take 1 [facility] (MOBIC) 7.5 9-26 tablet by ity of mg tablet 00:00: mouth once [place] 00 daily as Medical needed for Branch Pain (scale 7-10) (use sparingly due to side effects). baclofen 5 2021-0 Yes [id number] 5mg Take 1 [facility] mg tablet 9-26 tablet by ity o f 00:00: mouth 3 (three) Medical times Branch daily as needed (muscle pain or spasm). pantoprazol 2021-0 Yes Univer s e 40 mg EC 9-26 ity of tablet 00:00: Medical Branch meloxicam 2021-0 Yes [id number] 7.5mg Take 1 [facility] (MOBIC) 7.5 9-26 tablet by ity of mg tablet 00:00: mouth once [place] 00 daily as Medical needed for Branch Pain (scale 7-10) (use sparingly due to side effects). baclofen 5 2021-0 Yes [id number] 5mg Take 1 [facility] mg tablet 9-26 tablet by ity o f 00:00: mouth 3 (three) Medical times Branch daily as needed (muscle pain or spasm). pantoprazol 2021-0 Yes Univer s e 40 mg EC 9-26 ity of tablet 00:00: Medical Branch meloxicam 2021-0 Yes [id number] 7.5mg Take 1 [facility] (MOBIC) 7.5 9-26 tablet by ity of mg tablet 00:00: mouth once [place] 00 daily as Medical needed for Branch Pain (scale 7-10) (use sparingly due to side effects). baclofen 5 2021-0 Yes [id number] 5mg Take 1 [facility] mg tablet 9-26 tablet by ity o f 00:00: mouth 3 (three) Medical times Branch daily as needed (muscle pain or spasm). pantoprazol 2021-0 Yes Univer s e 40 mg EC 9-26 ity of tablet 00:00: Medical Branch meloxicam 2021-0 Yes [id number] 7.5mg Take 1 [facility] (MOBIC) 7.5 9-26 tablet by ity of mg tablet 00:00: mouth once [place] 00 daily as Medical needed for Branch Pain (scale 7-10) (use sparingly due to side effects). baclofen 5 2021-0 Yes [id number] 5mg Take 1 [facility] mg tablet 9-26 tablet by ity o f 00:00: mouth 3 (three) Medical times Branch daily as needed (muscle pain or spasm). pantoprazol 0 Yes Univer s e 40 mg EC 9-26 ity of tablet 00:00: Medical Branch meloxicam 2021-0 Yes [id number] 7.5mg Take 1 [facility] (MOBIC) 7.5 9-26 tablet by ity of mg tablet 00:00: mouth once [place] 00 daily as Medical needed for Branch Pain (scale 7-10) (use sparingly due to side effects). baclofen 5 2021-0 Yes [id number] 5mg Take 1 [facility] mg tablet 9-26 tablet by ity o f 00:00: mouth 3 00 (three) Medical times Branch daily as needed (muscle pain or spasm). pantoprazol 2021-0 Yes Univer s e 40 mg EC 9-26 ity of tablet 00:00: Medical Branch meloxicam 2021-0 Yes [id number] 7.5mg Take 1 [facility] (MOBIC) 7.5 9-26 tablet by ity of mg tablet 00:00: mouth once [place] 00 daily as Medical needed for Branch Pain (scale 7-10) (use sparingly due to side effects). baclofen 5 2021-0 Yes [id number] 5mg Take 1 [facility] mg tablet 9-26 tablet by ity o f 00:00: mouth 3 [place] 00 (three) Medical times Branch daily as needed (muscle pain or spasm). pantoprazol 2021-0 Yes Univer s e 40 mg EC 9-26 ity of tablet 00:00: 00 Medical Branch meloxicam 2021-0 Yes [id number] 7.5mg Take 1 [facility] (MOBIC) 7.5 9-26 tablet by ity of mg tablet 00:00: mouth once [place] 00 daily as Medical needed for Branch Pain (scale 7-10) (use sparingly due to side effects). baclofen 5 2021-0 Yes [id number] 5mg Take 1 [facility] mg tablet 9-26 tablet by ity o f 00:00: mouth 3 00 (three) Medical times Branch daily as needed (muscle pain or spasm). pantoprazol 2021-0 Yes Univer s e 40 mg EC 9-26 ity of tablet 00:00: Medical Branch meloxicam 2021-0 Yes [id number] 7.5mg Take 1 [facility] (MOBIC) 7.5 9-26 tablet by ity of mg tablet 00:00: mouth once [place] 00 daily as Medical needed for Branch Pain (scale 7-10) (use sparingly due to side effects). baclofen 5 2021-0 Yes [id number] 5mg Take 1 [facility] mg tablet 9-26 tablet by ity o f 00:00: mouth 3 00 (three) Medical times Branch daily as needed (muscle pain or spasm). pantoprazol 2021-0 Yes Univer s e 40 mg EC 9-26 ity of tablet 00:00: Medical Branch meloxicam 2021-0 Yes [id number] 7.5mg Take 1 [facility] (MOBIC) 7.5 9-26 tablet by ity of mg tablet 00:00: mouth once [place] 00 daily as Medical needed for Branch Pain (scale 7-10) (use sparingly due to side effects). pantoprazol Yes Univer s e 40 mg EC 9-26 ity of tablet 00:00: Medical Branch meloxicam 0 Yes [id number] 7.5mg Take 1 [facility] (MOBIC) 7.5 9-26 tablet by ity of mg tablet 00:00: mouth once [place] 00 daily as Medical needed for Branch Pain (scale 7-10) (use sparingly due to side effects). pantoprazol Yes Univer s e 40 mg EC 9-26 ity of tablet 00:00: Medical Branch meloxicam 0 Yes [id number] 7.5mg Take 1 [facility] (MOBIC) 7.5 9-26 tablet by ity of mg tablet 00:00: mouth once [place] 00 daily as Medical needed for Branch Pain (scale 7-10) (use sparingly due to side effects). pantoprazol Yes Univer s e 40 mg EC 9-26 ity of tablet 00:00: Medical Branch meloxicam 0 Yes [id number] 7.5mg Take 1 [facility] (MOBIC) 7.5 9-26 tablet by ity of mg tablet 00:00: mouth once [place] 00 daily as Medical needed for Branch Pain (scale 7-10) (use sparingly due to side effects). pantoprazol Yes Univer s e 40 mg EC 9-26 ity of tablet 00:00: Medical Branch meloxicam 0 Yes [id number] 7.5mg Take 1 [facility] (MOBIC) 7.5 9-26 tablet by ity of mg tablet 00:00: mouth once [place] 00 daily as Medical needed for Branch Pain (scale 7-10) (use sparingly due to side effects). pantoprazol Yes Univer s e 40 mg EC 9-26 ity of tablet 00:00: Medical Branch meloxicam 2021-0 Yes [id number] 7.5mg Take 1 [facility] (MOBIC) 7.5 9-26 tablet by ity of mg tablet 00:00: mouth once [place] 00 daily as Medical needed for Branch Pain (scale 7-10) (use sparingly due to side effects). pantoprazol Yes Univer s e 40 mg EC 9-26 ity of tablet 00:00: Medical Branch meloxicam 0 Yes [id number] 7.5mg Take 1 [facility] (MOBIC) 7.5 9-26 tablet by ity of mg tablet 00:00: mouth once [place] 00 daily as Medical needed for Branch Pain (scale 7-10) (use sparingly due to side effects). pantoprazol Yes Univer s e 40 mg EC 9-26 ity of tablet 00:00: Medical Branch meloxicam 0 Yes [id number] 7.5mg Take 1 [facility] (MOBIC) 7.5 9-26 tablet by ity of mg tablet 00:00: mouth once [place] 00 daily as Medical needed for Branch Pain (scale 7-10) (use sparingly due to side effects). pantoprazol Yes Univer s e 40 mg EC 9-26 ity of tablet 00:00: Medical Branch meloxicam Yes [id number] 7.5mg Take 1 [facility] (MOBIC) 7.5 9-26 tablet by ity of mg tablet 00:00: mouth once [place] 00 daily as Medical needed for Branch Pain (scale 7-10) (use sparingly due to side effects). pantoprazol Yes Univer s e 40 mg EC 9-26 ity of tablet 00:00: Medical Branch meloxicam 0 Yes [id number] 7.5mg Take 1 [facility] (MOBIC) 7.5 9-26 tablet by ity of mg tablet 00:00: mouth once [place] 00 daily as Medical needed for Branch Pain (scale 7-10) (use sparingly due to side effects). pantoprazol Yes Univer s e 40 mg EC 9-26 ity of tablet 00:00: [facility] Branch meloxicam 0 Yes [id number] 7.5mg Take 1 [facility] 7.5 9-26 tablet by [facility] of mg tablet 00:00: mouth once [place] 00 daily as Medical needed for Branch Pain (scale 7-10) (use sparingly due to side effects). pantoprazol Yes Univer s e 40 mg EC 9-26 ity of tablet 00:00: [facility] Branch meloxicam 0 Yes [id number] 7.5mg Take 1 [facility] ([facility]) 7.5 9-26 tablet by [facility] of mg tablet 00:00: mouth once [place] 00 daily as Medical needed for Branch Pain (scale 7-10) (use sparingly due to side effects). pantoprazol Yes Univer s e 40 mg EC 9-26 ity of tablet 00:00: [facility] meloxicam 0 Yes [id number] 7.5mg Take 1 [facility] ([facility]) 7.5 9-26 tablet by [facility] of mg tablet 00:00: mouth once [place] 00 daily as Medical needed for Branch Pain (scale 7-10) (use sparingly due to side effects). pantoprazol Yes Univer s e 40 mg EC 9-26 ity of tablet 00:00: [facility] meloxicam 0 Yes [id number] 7.5mg Take 1 [facility] ([facility]) 7.5 9-26 tablet by [facility] of mg tablet 00:00: mouth once [place] 00 daily as Medical needed for Branch Pain (scale 7-10) (use sparingly due to side effects). pantoprazol Yes Univer s e 40 mg EC 9-26 ity of tablet 00:00: [facility] meloxicam 0 Yes [id number] 7.5mg Take 1 [facility] ([facility]) 7.5 9-26 tablet by [facility] of mg tablet 00:00: mouth once [place] 00 daily as Medical needed for Branch Pain (scale 7-10) (use sparingly due to side effects). pantoprazol Yes Univer s e 40 mg EC 9-26 ity of tablet 00:00: [facility] Branch meloxicam 2021-0 Yes [id number] 7.5mg Take 1 [facility] ([facility]) 7.5 9-26 tablet by [facility] of mg tablet 00:00: mouth once [place] 00 daily as Medical needed for Branch Pain (scale 7-10) (use sparingly due to side effects). pantoprazol 2022-0 Yes Univer s e 40 mg EC 9-26 ity of tablet 00:00: [facility] Branch meloxicam 2021-0 Yes [id number] 7.5mg Take 1 [facility] ([facility]) 7.5 9-26 tablet by [facility] of mg tablet 00:00: mouth once [place] 00 daily as Medical needed for Branch Pain (scale 7-10) (use sparingly due to side effects). pantoprazol 0 Yes Univer s e 40 mg EC 9-26 ity of tablet 00:00: [facility] Branch meloxicam 0 Yes [id number] 7.5mg Take 1 [facility] ([facility]) 7.5 9-26 tablet by [facility] of mg tablet 00:00: mouth once [place] 00 daily as Medical needed for Branch Pain (scale 7-10) (use sparingly due to side effects). pantoprazol Yes Univer s e 40 mg EC 9-26 ity of tablet 00:00: [facility] meloxicam 0 Yes [id number] 7.5mg Take 1 [facility] ([facility]) 7.5 9-26 tablet by [facility] of mg tablet 00:00: mouth once [place] 00 daily as Medical needed for Branch Pain (scale 7-10) (use sparingly due to side effects). pantoprazol Yes Univer s e 40 mg EC 9-26 ity of tablet 00:00: [facility] meloxicam 0 Yes [id number] 7.5mg Take 1 [facility] ([facility]) 7.5 9-26 tablet by [facility] of mg tablet 00:00: mouth once [place] 00 daily as Medical needed for Branch Pain (scale 7-10) (use sparingly due to side effects). pantoprazol 0 Yes Univer s e 40 mg EC 9-26 ity of tablet 00:00: [facility] meloxicam 0 Yes [id number] 7.5mg Take 1 [facility] ([facility]) 7.5 9-26 tablet by [facility] of mg tablet 00:00: mouth once [place] 00 daily as Medical needed for Branch Pain (scale 7-10) (use sparingly due to side effects). pantoprazol 0 Yes Univer s e 40 mg EC 9-26 ity of tablet 00:00: [facility] Branch meloxicam 2021-0 Yes [id number] 7.5mg Take 1 [facility] ([facility]) 7.5 9-26 tablet by [facility] of mg tablet 00:00: mouth once [place] 00 daily as Medical needed for Branch Pain (scale 7-10) (use sparingly due to side effects). pantoprazol Yes [facility] e 40 mg EC 9-26 ity of tablet 00:00: [facility] Branch meloxicam 0 Yes [id number] 7.5mg Take 1 [facility] ([facility]) 7.5 9-26 tablet by [facility] of mg tablet 00:00: mouth once [place] 00 daily as Medical needed for Branch Pain (scale 7-10) (use sparingly due to side effects). pantoprazol Yes Un[facility] s e 40 mg EC 9-26 ity of tablet 00:00: [facility] Branch meloxicam Yes [id number] 7.5mg Take 1 [facility] ([facility]) 7.5 9-26 tablet by [facility] of mg tablet 00:00: mouth once [place] 00 daily as Medical needed for Branch Pain (scale 7-10) (use sparingly due to side effects). pantoprazol Yes Univer s e 40 mg EC 9-26 ity of tablet 00:00: [facility] Branch meloxicam 0 Yes [id number] 7.5mg Take 1 [facility] ([facility]) 7.5 9-26 tablet by [facility] of mg tablet 00:00: mouth once [place] 00 daily as Medical needed for Branch Pain (scale 7-10) (use sparingly due to side effects). pantoprazol Yes Univer s e 40 mg EC 9-26 ity of tablet 00:00: [facility] Branch meloxicam 0 Yes [id number] 7.5mg Take 1 [facility] ([facility]) 7.5 9-26 tablet by [facility] of mg tablet 00:00: mouth once [place] 00 daily as Medical needed for Branch Pain (scale 7-10) (use sparingly due to side effects). pantoprazol Yes Univer s e 40 mg EC 9-26 ity of tablet 00:00: [facility] Branch meloxicam 2021-0 Yes [id number] 7.5mg Take 1 [facility] (MOBIC) 7.5 9-26 tablet by it[facility] of mg tablet 00:00: mouth once [place] 00 daily as Medical needed for Branch Pain (scale 7-10) (use sparingly due to side effects). pantoprazol 0 Yes Univer s e 40 mg EC 9-26 ity of tablet 00:00: [facility] Branch meloxicam 0 Yes [id number] 7.5mg Take 1 [facility] (MOBIC) 7.5 9-26 tablet by ity of mg tablet 00:00: mouth once [place] 00 daily as Medical needed for Branch Pain (scale 7-10) (use sparingly due to side effects). pantoprazol Yes Univer s e 40 mg EC 9-26 ity of tablet 00:: Medical Branch meloxicam 0 Yes [id number] 7.5mg Take 1 [facility] ([facility]) 7.5 9-26 tablet by it[facility] of mg tablet 00:00: mouth once [place] 00 daily as Medical needed for Branch Pain (scale 7-10) (use sparingly due to side effects). pantoprazol Yes Univer s e 40 mg EC 9-26 ity of tablet 00:: Medical Branch meloxicam 0 Yes [id number] 7.5mg Take 1 [facility] ([facility]) 7.5 9-26 tablet by it[facility] of mg tablet 00:00: mouth once [place] 00 daily as Medical needed for Branch Pain (scale 7-10) (use sparingly due to side effects). pantoprazol Yes Univer s e 40 mg EC 9-26 ity of tablet 00:00: [facility] Branch meloxicam 0 Yes [id number] 7.5mg Take 1 [facility] ([facility]) 7.5 9-26 tablet by [facility] of mg tablet 00:00: mouth once [place] 00 daily as Medical needed for Branch Pain (scale 7-10) (use sparingly due to side effects). pantoprazol Yes Univer s e 40 mg EC 9-26 ity of tablet 00:00: [facility] Branch meloxicam 0 Yes [id number] 7.5mg Take 1 [facility] (MOB[facility]) 7.5 9-26 tablet by it[facility] of mg tablet 00:00: mouth once [place] 00 daily as Medical needed for Branch Pain (scale 7-10) (use sparingly due to side effects). pantoprazol 0 Yes Univer s e 40 mg EC 9-26 ity of tablet 00:00: [facility] Branch meloxicam 0 Yes [id number] 7.5mg Take 1 [facility] (MOBIC) 7.5 9-26 tablet by it[facility] of mg tablet 00:00: mouth once [place] 00 daily as Medical needed for Branch Pain (scale 7-10) (use sparingly due to side effects). pantoprazol Yes Univer s e 40 mg EC 9-26 ity of tablet 00:: Medical Branch meloxicam Yes [id number] 7.5mg Take 1 [facility] (MOBIC) 7.5 9-26 tablet by ity of mg tablet 00:00: mouth once [place] 00 daily as Medical needed for Branch Pain (scale 7-10) (use sparingly due to side effects). pantoprazol Yes Univer s e 40 mg EC 9-26 ity of tablet 00:: Medical Branch meloxicam Yes [id number] 7.5mg Take 1 [facility] ([facility]) 7.5 9-26 tablet by ity of mg tablet 00:00: mouth once [place] 00 daily as Medical needed for Branch Pain (scale 7-10) (use sparingly due to side effects). pantoprazol Yes Univer s e 40 mg EC 9-26 ity of tablet 00:: Medical Branch meloxicam 0 Yes [id number] 7.5mg Take 1 [facility] (MOBIC) 7.5 9-26 tablet by ity of mg tablet 00:00: mouth once [place] 00 daily as Medical needed for Branch Pain (scale 7-10) (use sparingly due to side effects). pantoprazol Yes Univer s e 40 mg EC 9-26 ity of tablet 00:00: Medical Branch meloxicam 0 Yes [id number] 7.5mg Take 1 [facility] (MOBIC) 7.5 9-26 tablet by it[facility] of mg tablet 00:00: mouth once [place] 00 daily as Medical needed for Branch Pain (scale 7-10) (use sparingly due to side effects). pantoprazol 0 Yes Univer s e 40 mg EC 9-26 ity of tablet 00:00: Medical Branch meloxicam 0 Yes [id number] 7.5mg Take 1 [facility] (MOBIC) 7.5 9-26 tablet by ity of mg tablet 00:00: mouth once [place] 00 daily as Medical needed for Branch Pain (scale 7-10) (use sparingly due to side effects). pantoprazol Yes Univer s e 40 mg EC 9-26 ity of tablet 00:00: Medical Branch meloxicam Yes [id number] 7.5mg Take 1 [facility] (MOBIC) 7.5 9-26 tablet by ity of mg tablet 00:00: mouth once [place] 00 daily as Medical needed for Branch Pain (scale 7-10) (use sparingly due to side effects). pantoprazol Yes Univer s e 40 mg EC 9-26 ity of tablet 00:00: Medical Branch meloxicam Yes [id number] 7.5mg Take 1 [facility] (MOBIC) 7.5 9-26 tablet by ity of mg tablet 00:00: mouth once [place] 00 daily as Medical needed for Branch Pain (scale 7-10) (use sparingly due to side effects). pantoprazol Yes Univer s e 40 mg EC 9-26 ity of tablet 00:00: Medical Branch meloxicam 0 Yes [id number] 7.5mg Take 1 [facility] (MOBIC) 7.5 9-26 tablet by ity of mg tablet 00:00: mouth once [place] 00 daily as Medical needed for Branch Pain (scale 7-10) (use sparingly due to side effects). pantoprazol Yes Univer s e 40 mg EC 9-26 ity of tablet 00:00: Medical Branch meloxicam 2022-0 Yes [id number] 7.5mg Take 1 [facility] (MOBIC) 7.5 9-26 tablet by ity of mg tablet 00:00: mouth once [place] 00 daily as Medical needed for Branch Pain (scale 7-10) (use sparingly due to side effects). pantoprazol 0 Yes Univer s e 40 mg EC 9-26 ity of tablet 00:00: Medical Branch meloxicam 2021-0 Yes [id number] 7.5mg Take 1 [facility] (MOBIC) 7.5 9-26 tablet by ity of mg tablet 00:00: mouth once [place] 00 daily as Medical needed for Branch Pain (scale 7-10) (use sparingly due to side effects). pantoprazol Yes Univer s e 40 mg EC 9-26 ity of tablet 00:00: Medical Branch meloxicam 2021-0 Yes [id number] 7.5mg Take 1 [facility] (MOBIC) 7.5 9-26 tablet by ity of mg tablet 00:00: mouth once [place] 00 daily as Medical needed for Branch Pain (scale 7-10) (use sparingly due to side effects). pantoprazol Yes Univer s e 40 mg EC 9-26 ity of tablet 00:00: Medical Branch meloxicam 2021-0 Yes [id number] 7.5mg Take 1 [facility] (MOBIC) 7.5 9-26 tablet by ity of mg tablet 00:00: mouth once [place] 00 daily as Medical needed for Branch Pain (scale 7-10) (use sparingly due to side effects). pantoprazol Yes Univer s e 40 mg EC 9-26 ity of tablet 00:00: Medical Branch meloxicam 2021-0 Yes [id number] 7.5mg Take 1 [facility] (MOBIC) 7.5 9-26 tablet by ity of mg tablet 00:00: mouth once [place] 00 daily as Medical needed for Branch Pain (scale 7-10) (use sparingly due to side effects). pantoprazol 0 Yes Univer s e 40 mg EC 9-26 ity of tablet 00:00: Medical Branch meloxicam 2021-0 Yes [id number] 7.5mg Take 1 [facility] (MOBIC) 7.5 9-26 tablet by ity of mg tablet 00:00: mouth once [place] 00 daily as Medical needed for Branch Pain (scale 7-10) (use sparingly due to side effects). pantoprazol 0 Yes Univer s e 40 mg EC 9-26 ity of tablet 00:00: [place] [facility] pantoprazol 2021-0 Yes Univer s e 40 mg EC 9-26 ity of tablet 00:00: [place] [facility] pantoprazol 2021-0 Yes Univer s e 40 mg EC 9-26 ity of tablet 00:00: [place] [facility] pantoprazol 2021-0 Yes Univer s e 40 mg EC 9-26 ity of tablet 00:00: [place] [facility] pantoprazol 2021-0 Yes Univer s e 40 mg EC 9-26 ity of tablet 00:00: [place] [facility] pantoprazol 2021-0 Yes Univer s e 40 mg EC 9-26 ity of tablet 00:00: [place] [address] Medical Branch pantoprazol 2021-0 Yes Univer s e 40 mg EC 9-26 ity of tablet 00:00: [place] [address] Medical Branch pantoprazol 2021-0 Yes Univer s e 40 mg EC 9-26 ity of tablet 00:00: [place] [address] Medical Branch pantoprazol 2021-0 Yes Univer s e 40 mg EC 9-26 ity of tablet 00:00: [place] [address] Medical Branch pantoprazol 2021-0 Yes Univer s e 40 mg EC 9-26 ity of tablet 00:00: [place] [facility] pantoprazol 2021-0 Yes Univer s e 40 mg EC 9-26 ity of tablet 00:00: [place] [address] Medical Branch pantoprazol 2021-0 Yes Univer s e 40 mg EC 9-26 ity of tablet 00:00: [place] [address] Medical Branch pantoprazol 2021-0 Yes Univer s e 40 mg EC 9-26 ity of tablet 00:00: [place] [facility] pantoprazol 2021-0 Yes Univer s e 40 mg EC 9-26 ity of tablet 00:00: [place] [address] Medical Branch pantoprazol 2021-0 Yes Univer s e 40 mg EC 9-26 ity of tablet 00:00: [place] [facility] pantoprazol 2021-0 Yes Univer s e 40 mg EC 9-26 ity of tablet 00:00: [place] [facility] pantoprazol 2021-0 Yes Univer s e 40 mg EC 926 ity of tablet 00:00: [place] [facility] pantoprazol 0 Yes Univer s e 40 mg EC 9-26 ity of tablet 00:00: [place] [facility] pantoprazol 2021-0 Yes Univer s e 40 mg EC 9-26 ity of tablet 00:00: [place] [facility] pantoprazol 0 Yes Univer s e 40 mg EC 9-26 ity of tablet 00:00: [place] [facility] pantoprazol 0 Yes Univer s e 40 mg EC 926 ity of tablet 00:00: [place] [facility] pantoprazol 0 Yes Univer s e 40 mg EC 9-26 ity of tablet 00:00: [place] [facility] Branch pantoprazol 2021-0 Yes Univer s e 40 mg EC 926 ity of tablet 00:00: [place] [facility] pantoprazol 0 Yes Univer s e 40 mg EC 9-26 ity of tablet 00:00: [place] [facility] Branch pantoprazol 0 Yes Univer s e 40 mg EC 9 ity of tablet 00:00: [place] [facility] meloxicam 2022- No [id number] 7.5mg Take 1 [facility] (MOBIC) 7.5 01-07- tablet by it y of mg tablet 00:00: 00:00 mouth once [place] 00 :00 daily as Medical needed for Branch Pain (scale 7-10) (use sparingly due to side effects). meloxicam 2022- No [id number] 7.5mg Take 1 [facility] (MOBIC) 7.5 01-07-28 tablet by it y of mg tablet 00:00: 00:00 mouth once [place] 00 :00 daily as Medical needed for Branch Pain (scale 7-10) (use sparingly due to side effects). baclofen 5 2021- No [id number] 5mg Take 1 [facility] mg tablet 01-07 12-16 tablet by ity of 00:00: 00:00 mouth 3 [place] 00 :00 (three) Medical times Branch daily as needed (muscle pain or spasm). baclofen 5 2021-0 2022- No [id number] 5mg Take 1 [facility] mg tablet 01-0716 tablet by ity of 00:00: 00:00 mouth 3 [place] 00 :00 (three) Medical times Branch daily as needed (muscle pain or spasm). sulfamethox 2021-0 Yes 1{tbl} Take 1 [facility] azole-trime 9-23 tablet by ity of thoprim 00:00: mouth [place] 800-160 mg 00 every 12 Medic al per tablet (twelve) Branc h hours. sulfamethox 2-0 Yes 1{tbl} Take 1 Un [facility] azole-trime 9-23 tablet by ity of thoprim 00:00: mouth [place] 800-160 mg 00 every 12 Medic al per tablet (twelve) Branc h hours. sulfamethox 2021-0 Yes 1{tbl} Take 1 Un [facility] azole-trime 9-23 tablet by ity of thoprim 00:00: mouth [place] 800-160 mg 00 every 12 Medic al per tablet (twelve) Branc h hours. sulfamethox 2-0 Yes 1{tbl} Take 1 Un [facility] azole-trime 9-23 tablet by ity of thoprim 00:00: mouth [place] 800-160 mg 00 every 12 Medic al per tablet (twelve) Branc h hours. sulfamethox 2-0 Yes 1{tbl} Take 1 Un w[facility]y azole-trime [...] tablet (twelve) Branc h hours. sulfamethox 2022-0 2023- No 1{tbl} Take 1 U nivers azole-trime 9-23 02-18 tablet by it y of thoprim 00:00: 00:00 mouth [place] 800-160 mg 00 :00 every 12 Medic al per tablet (twelve) Branc h hours. ciprofloxac 2022-0 2022- No 500mg Take 500 [facility] in HCl 500 9-23 10-10 mg by ity of mg tablet 00:00: 00:00 mouth [place] 00 :00 every 12 Medical (twelve) Branch hours. neomycin-po 2022-0 Yes APPLY Unive rs lymyxin-dex 9-17 OINTMENT ity of amethasone 00:00: TO THE [place] 3.5 00 LEFT EYE Medical mg/g-10,000 THREE Branch unit/g-0.1 TIMES % DAILY ophthalmic ointment neomycin-po 2022-0 Yes APPLY Unive rs lymyxin-dex 9-17 OINTMENT ity of amethasone 00:00: TO THE [place] 3.5 00 LEFT EYE Medical mg/g-10,000 THREE Branch unit/g-0.1 TIMES % DAILY ophthalmic ointment neomycin-po 2022-0 Yes APPLY Unive rs lymyxin-dex 9-17 OINTMENT ity of amethasone 00:00: TO THE [place] 3.5 00 LEFT EYE Medical mg/g-10,000 THREE Branch unit/g-0.1 TIMES % DAILY ophthalmic ointment neomycin-po 2-0 Yes APPLY Unive rs lymyxin-dex 9-17 OINTMENT ity of amethasone 00:00: TO THE [place] [address].5 LEFT EYE Medical mg/g-10,000 THREE Branch unit/g-0.1 TIMES % DAILY ophthalmic ointment neomycin-po 2021-0 Yes APPLY Unive rs lymyxin-dex 9-17 OINTMENT ity of amethasone 00:00: TO THE [place] 3.5 LEFT EYE Medical mg/g-10,000 THREE Branch unit/g-0.1 TIMES % DAILY ophthalmic ointment neomycin-po 2021-0 Yes APPLY Unive rs lymyxin-dex 9-17 OINTMENT ity of amethasone 00:00: TO THE [place] 3.5 00 LEFT EYE Medical mg/g-10,000 THREE Branch unit/g-0.1 TIMES % DAILY ophthalmic ointment neomycin-po 2-0 Yes APPLY Unive rs lymyxin-dex 9-17 OINTMENT ity of amethasone 00:00: TO THE [place] 3.5 00 LEFT EYE Medical mg/g-10,000 THREE Branch unit/g-0.1 TIMES % DAILY ophthalmic ointment neomycin-po 2022-0 Yes APPLY Unive rs lymyxin-dex 9-17 OINTMENT ity of amethasone 00:00: TO THE [place] 3.5 00 LEFT EYE Medical mg/g-10,000 THREE Branch unit/g-0.1 TIMES % DAILY ophthalmic ointment neomycin-po 2022-0 Yes APPLY Unive rs lymyxin-dex 9-17 OINTMENT ity of amethasone 00:00: TO THE [place] 3.5 00 LEFT EYE Medical mg/g-10,000 THREE Branch unit/g-0.1 TIMES % DAILY ophthalmic ointment neomycin-po 2-0 Yes APPLY Unive rs lymyxin-dex 9-17 OINTMENT ity of amethasone 00:00: TO THE [place] 3.5 LEFT EYE Medical mg/g-10,000 THREE Branch unit/g-0.1 TIMES % DAILY ophthalmic ointment neomycin-po 2021-0 Yes APPLY Unive rs lymyxin-dex 9-17 OINTMENT ity of amethasone 00:00: TO THE [place] 3.5 LEFT EYE Medical mg/g-10,000 THREE Branch unit/g-0.1 TIMES % DAILY ophthalmic ointment neomycin-po 2021-0 Yes APPLY Unive rs lymyxin-dex 9-17 OINTMENT ity of amethasone 00:00: TO THE [place] [address] LEFT EYE Medical mg/g-10,000 THREE Branch unit/g-0.1 TIMES % DAILY ophthalmic ointment neomycin-po 2021-0 Yes APPLY Unive rs lymyxin-dex 9-17 OINTMENT ity of amethasone 00:00: TO THE [place] [id number] LEFT EYE Medical mg/g-10,000 THREE Branch unit/g-0.1 TIMES % DAILY ophthalmic ointment neomycin-po 2021-0 Yes APPLY Unive rs lymyxin-dex 9-17 OINTMENT ity of amethasone 00:00: TO THE [place] [address] LEFT EYE Medical mg/g-10,000 THREE Branch unit/g-0.1 TIMES % DAILY ophthalmic ointment neomycin-po 2-0 Yes APPLY Unive rs lymyxin-dex 9-17 OINTMENT ity of amethasone 00:00: TO THE [place] [address].5 LEFT EYE Medical mg/g-10,000 THREE Branch unit/g-0.1 TIMES % DAILY ophthalmic ointment neomycin-po 2-0 Yes APPLY Unive rs lymyxin-dex 9-17 OINTMENT ity of amethasone 00:00: TO THE [place] 3.5 00 LEFT EYE Medical mg/g-10,000 THREE Branch unit/g-0.1 TIMES % DAILY ophthalmic ointment neomycin-po 2022-0 Yes APPLY Unive rs lymyxin-dex 9-17 OINTMENT ity of amethasone 00:00: TO THE [place] 3.5 00 LEFT EYE Medical mg/g-10,000 THREE Branch unit/g-0.1 TIMES % DAILY ophthalmic ointment neomycin-po 2022-0 Yes APPLY Unive rs lymyxin-dex 9-17 OINTMENT ity of amethasone 00:00: TO THE [place] 3.5 00 LEFT EYE Medical mg/g-10,000 THREE Branch unit/g-0.1 TIMES % DAILY ophthalmic ointment neomycin-po 2022-0 Yes APPLY Unive rs lymyxin-dex 9-17 OINTMENT ity of amethasone 00:00: TO THE [place] 3.5 00 LEFT EYE Medical mg/g-10,000 THREE Branch unit/g-0.1 TIMES % DAILY ophthalmic ointment neomycin-po 2022-0 Yes APPLY Unive rs lymyxin-dex 9-17 OINTMENT ity of amethasone 00:00: TO THE [place] 3.5 00 LEFT EYE Medical mg/g-10,000 THREE Branch unit/g-0.1 TIMES % DAILY ophthalmic ointment neomycin-po 2-0 Yes APPLY Unive rs lymyxin-dex 9-17 OINTMENT ity of amethasone 00:00: TO THE [place] 3.5 00 LEFT EYE Medical mg/g-10,000 THREE Branch unit/g-0.1 TIMES % DAILY ophthalmic ointment neomycin-po 2022-0 Yes APPLY Unive rs lymyxin-dex 9-17 OINTMENT ity of amethasone 00:00: TO THE [place] 3.5 00 LEFT EYE Medical mg/g-10,000 THREE Branch unit/g-0.1 TIMES % DAILY ophthalmic ointment neomycin-po 2022-0 Yes APPLY Unive rs lymyxin-dex 9-17 OINTMENT ity of amethasone 00:00: TO THE [place] 3.5 00 LEFT EYE Medical mg/g-10,000 THREE Branch unit/g-0.1 TIMES % DAILY ophthalmic ointment neomycin-po 2022-0 Yes APPLY Unive rs lymyxin-dex 9-17 OINTMENT ity of amethasone 00:00: TO THE [place] 3.5 00 LEFT EYE Medical mg/g-10,000 THREE Branch unit/g-0.1 TIMES % DAILY ophthalmic ointment neomycin-po 2-0 Yes APPLY Unive rs lymyxin-dex 9-17 OINTMENT ity of amethasone 00:00: TO THE [place] 3.5 00 LEFT EYE Medical mg/g-10,000 THREE Branch unit/g-0.1 TIMES % DAILY ophthalmic ointment neomycin-po 2-0 Yes APPLY Unive rs lymyxin-dex 9-17 OINTMENT ity of amethasone 00:00: TO THE [place] 3.5 00 LEFT EYE Medical mg/g-10,000 THREE Branch unit/g-0.1 TIMES % DAILY ophthalmic ointment neomycin-po 2021-0 Yes APPLY Unive rs lymyxin-dex 9-17 OINTMENT ity of amethasone 00:00: TO THE [place] [address].5 LEFT EYE Medical mg/g-10,000 THREE Branch unit/g-0.1 TIMES % DAILY ophthalmic ointment neomycin-po 2021-0 Yes APPLY Unive rs lymyxin-dex 9-17 OINTMENT ity of amethasone 00:00: TO THE [place] 3.5 LEFT EYE Medical mg/g-10,000 THREE Branch unit/g-0.1 TIMES % DAILY ophthalmic ointment neomycin-po 2021-0 Yes APPLY Unive rs lymyxin-dex 9-17 OINTMENT ity of amethasone 00:00: TO THE [place] 3.5 LEFT EYE Medical mg/g-10,000 THREE Branch unit/g-0.1 TIMES % DAILY ophthalmic ointment neomycin-po 2021-0 Yes APPLY Unive rs lymyxin-dex 9-17 OINTMENT ity of amethasone 00:00: TO THE [place] 3.5 00 LEFT EYE Medical mg/g-10,000 THREE Branch unit/g-0.1 TIMES % DAILY ophthalmic ointment neomycin-po 2-0 Yes APPLY Unive rs lymyxin-dex 9-17 OINTMENT ity of amethasone 00:00: TO THE [place] 3.5 00 LEFT EYE Medical mg/g-10,000 THREE Branch unit/g-0.1 TIMES % DAILY ophthalmic ointment neomycin-po 2022-0 Yes APPLY Unive rs lymyxin-dex 9-17 OINTMENT ity of amethasone 00:00: TO THE [place] 3.5 LEFT EYE Medical mg/g-10,000 THREE Branch unit/g-0.1 TIMES % DAILY ophthalmic ointment neomycin-po 2022-0 Yes APPLY Unive rs lymyxin-dex 9-17 OINTMENT ity of amethasone 00:00: TO THE [place] [address] LEFT EYE Medical mg/g-10,000 THREE Branch unit/g-0.1 TIMES % DAILY ophthalmic ointment neomycin-po 2-0 Yes APPLY Unive rs lymyxin-dex 9-17 OINTMENT ity of amethasone 00:00: TO THE [place] [address] LEFT EYE Medical mg/g-10,000 THREE Branch unit/g-0.1 TIMES % DAILY ophthalmic ointment neomycin-po 2022-0 Yes APPLY Unive rs lymyxin-dex 9-17 OINTMENT ity of amethasone 00:00: TO THE [place] [address] LEFT EYE Medical mg/g-10,000 THREE Branch unit/g-0.1 TIMES % DAILY ophthalmic ointment neomycin-po 2021-0 Yes APPLY Unive rs lymyxin-dex 9-17 OINTMENT ity of amethasone 00:00: TO THE [place] [address] LEFT EYE Medical mg/g-10,000 THREE Branch unit/g-0.1 TIMES % DAILY ophthalmic ointment neomycin-po 2021-0 Yes APPLY Unive rs lymyxin-dex 9-17 OINTMENT ity of amethasone 00:00: TO THE [place] [address] LEFT EYE Medical mg/g-10,000 THREE Branch unit/g-0.1 TIMES % DAILY ophthalmic ointment neomycin-po 2-0 Yes APPLY Unive rs lymyxin-dex 9-17 OINTMENT ity of amethasone 00:00: TO THE [place] [address] LEFT EYE Medical mg/g-10,000 THREE Branch unit/g-0.1 TIMES % DAILY ophthalmic ointment neomycin-po 2022-0 Yes APPLY Unive rs lymyxin-dex 9-17 OINTMENT ity of amethasone 00:00: TO THE [place] 3.5 00 LEFT EYE Medical mg/g-10,000 THREE Branch unit/g-0.1 TIMES % DAILY ophthalmic ointment neomycin-po 2022-0 Yes APPLY Unive rs lymyxin-dex 9-17 OINTMENT ity of amethasone 00:00: TO THE [place] 3.5 00 LEFT EYE Medical mg/g-10,000 THREE Branch unit/g-0.1 TIMES % DAILY ophthalmic ointment neomycin-po 2022-0 Yes APPLY Unive rs lymyxin-dex 9-17 OINTMENT ity of amethasone 00:00: TO THE [place] 3.5 00 LEFT EYE Medical mg/g-10,000 THREE Branch unit/g-0.1 TIMES % DAILY ophthalmic ointment neomycin-po 2021-0 Yes APPLY Unive rs lymyxin-dex 9-17 OINTMENT ity of amethasone 00:00: TO THE [place] 3.5 00 LEFT EYE Medical mg/g-10,000 THREE Branch unit/g-0.1 TIMES % DAILY ophthalmic ointment neomycin-po 2021-0 Yes APPLY Unive rs lymyxin-dex 9-17 OINTMENT ity of amethasone 00:00: TO THE [place] [address].5 LEFT EYE Medical mg/g-10,000 THREE Branch unit/g-0.1 TIMES % DAILY ophthalmic ointment neomycin-po 2021-0 Yes APPLY Unive rs lymyxin-dex 9-17 OINTMENT ity of amethasone 00:00: TO THE [place] 3.5 00 LEFT EYE Medical mg/g-10,000 THREE Branch unit/g-0.1 TIMES % DAILY ophthalmic ointment neomycin-po 2021-0 Yes APPLY Unive rs lymyxin-dex 9-17 OINTMENT ity of amethasone 00:00: TO THE [place] 3.5 00 LEFT EYE Medical mg/g-10,000 THREE Branch unit/g-0.1 TIMES % DAILY ophthalmic ointment neomycin-po 2-0 Yes APPLY Unive rs lymyxin-dex 9-17 OINTMENT ity of amethasone 00:00: TO THE [place] 3.5 00 LEFT EYE Medical mg/g-10,000 THREE Branch unit/g-0.1 TIMES % DAILY ophthalmic ointment neomycin-po 2-0 Yes APPLY Unive rs lymyxin-dex 9-17 OINTMENT ity of amethasone 00:00: TO THE [place] 3.5 00 LEFT EYE Medical mg/g-10,000 THREE Branch unit/g-0.1 TIMES % DAILY ophthalmic ointment neomycin-po Yes APPLY Unive rs lymyxin-dex 9-17 OINTMENT ity of amethasone 00:00: TO THE [place] 3.5 00 LEFT EYE Medical mg/g-10,000 THREE Branch unit/g-0.1 TIMES % DAILY ophthalmic ointment neomycin-po 2022- No APPLY Univ ers lymyxin-dex 9-17 02-18 OINTMENT ity of amethasone 00:00: 00:00 TO THE [facility] 3.5 00 :00 LEFT EYE Medical mg/g-10,000 THREE Branch unit/g-0.1 TIMES % DAILY ophthalmic ointment FARXIGA 10 Yes [id number] TAKE 1 U nivers mg tablet 9-16 TABLET BY ity o f 00:00: MOUTH [place] 00 DAILY. Medical STOP Branch JARDIANCE. DROPLET PEN Yes [id number] USE [facility] NEEDLE 31 9-16 DIRECTED ity of gauge x 00:00: TO INJECT [place] 5/16" Ndle 00 INSULIN Medica l ONCE DAILY Branch [facility] 10 Yes [id number] TAKE 1 U nivers mg tablet 9-16 TABLET BY ity o f 00:00: MOUTH [place] 00 DAILY. Medical STOP Branch JARDIANCE. DROPLET PEN 0 Yes [id number] USE [facility] NEEDLE 31 9-16 DIRECTED ity of gauge x 00:00: TO INJECT [place] 5/16" Ndle 00 INSULIN Medica l ONCE DAILY Branch [facility] 10 Yes [id number] TAKE 1 U nivers mg tablet 9-16 TABLET BY ity o f 00:00: MOUTH [place] 00 DAILY. Medical STOP Branch JARDIANCE. DROPLET PEN 0 Yes [id number] USE [facility] NEEDLE 31 9-16 DIRECTED ity of gauge x 00:00: TO INJECT [place] 5/16" Ndle 00 INSULIN Medica l ONCE DAILY Branch [facility] 10 Yes [id number] TAKE 1 U nivers mg tablet 9-16 TABLET BY ity o f 00:00: MOUTH [place] 00 DAILY. Medical STOP Branch JARDIANCE. DROPLET PEN 0 Yes [id number] USE [facility] NEEDLE 31 9-16 DIRECTED ity of gauge x 00:00: TO INJECT [place] 5/16" Ndle 00 INSULIN Medica l ONCE DAILY Branch [place] [address] 0 Yes [id number] TAKE 1 U nivers mg tablet 9-16 TABLET BY ity o f 00:00: MOUTH [place] 00 DAILY. Medical STOP Branch JARDIANCE. DROPLET PEN 0 Yes [id number] USE [facility] NEEDLE 31 9-16 DIRECTED ity of gauge x 00:00: TO INJECT [place] 5/16" Ndle 00 INSULIN Medica l ONCE DAILY Branch [place] [address] Yes [id number] TAKE 1 U nivers mg tablet 9-16 TABLET BY ity o f 00:00: MOUTH [place] 00 DAILY. Medical STOP Branch JARDIANCE. DROPLET PEN 0 Yes [id number] USE [facility] NEEDLE 31 9-16 DIRECTED ity of gauge x 00:00: TO INJECT [place] 5/16" Ndle 00 INSULIN Medica l ONCE DAILY Branch [place] [address] 0 Yes [id number] TAKE 1 U nivers mg tablet 9-16 TABLET BY ity o f 00:00: MOUTH [place] 00 DAILY. Medical STOP Branch JARDIANCE. DROPLET PEN 0 Yes [id number] USE [facility] NEEDLE 31 9-16 DIRECTED ity of gauge x 00:00: TO INJECT [place] 5/16" Ndle 00 INSULIN Medica l ONCE DAILY Branch [place] [address] 0 Yes [id number] TAKE 1 U nivers mg tablet 9-16 TABLET BY ity o f 00:00: MOUTH [place] 00 DAILY. Medical STOP Branch JARDIANCE. DROPLET PEN 0 Yes [id number] USE [facility] NEEDLE 31 9-16 DIRECTED ity of gauge x 00:00: TO INJECT [place] 5/16" Ndle 00 INSULIN Medica l ONCE DAILY Branch [place] [address] 0 Yes [id number] TAKE 1 U nivers mg tablet 9-16 TABLET BY ity o f 00:00: MOUTH [place] 00 DAILY. Medical STOP Branch JARDIANCE. DROPLET PEN 0 Yes [id number] USE [facility] NEEDLE 31 9-16 DIRECTED ity of gauge x 00:00: TO INJECT [place] 5/16" Ndle 00 INSULIN Medica l ONCE DAILY Branch [place] [address] Yes [id number] TAKE 1 U nivers mg tablet 9-16 TABLET BY ity o f 00:00: MOUTH [place] 00 DAILY. Medical STOP Branch JARDIANCE. DROPLET PEN 0 Yes [id number] USE [facility] NEEDLE 31 9-16 DIRECTED ity of gauge x 00:00: TO INJECT [place] 5/16" Ndle 00 INSULIN Medica l ONCE DAILY Branch [place] [address] Yes [id number] TAKE 1 U nivers mg tablet 9-16 TABLET BY ity o f 00:00: MOUTH [place] 00 DAILY. Medical STOP Branch JARDIANCE. DROPLET PEN Yes [id number] USE [facility] NEEDLE 31 9-16 DIRECTED ity of gauge x 00:00: TO INJECT [place] 5/16" Ndle 00 INSULIN Medica l ONCE DAILY Branch [place] [address] Yes [id number] TAKE 1 U nivers mg tablet 9-16 TABLET BY ity o f 00:00: MOUTH [place] 00 DAILY. Medical STOP Branch JARDIANCE. DROPLET PEN Yes [id number] USE [facility] NEEDLE 31 9-16 DIRECTED ity of gauge x 00:00: TO INJECT [place] 5/16" Ndle 00 INSULIN Medica l ONCE DAILY Branch [place] [address] Yes [id number] TAKE 1 U nivers mg tablet 9-16 TABLET BY ity o f 00:00: MOUTH [place] 00 DAILY. Medical STOP Branch JARDIANCE. DROPLET PEN 0 Yes [id number] USE [facility] NEEDLE 31 9-16 DIRECTED ity of gauge x 00:00: TO INJECT [place] 5/16" Ndle 00 INSULIN Medica l ONCE DAILY Branch [place] [address] Yes [id number] TAKE 1 U nivers mg tablet 9-16 TABLET BY ity o f 00:00: MOUTH [place] 00 DAILY. Medical STOP Branch JARDIANCE. DROPLET PEN 0 Yes [id number] USE [facility] NEEDLE 31 9-16 DIRECTED ity of gauge x 00:00: TO INJECT [place] 5/16" Ndle 00 INSULIN Medica l ONCE DAILY Branch [place] [address] Yes [id number] TAKE 1 U nivers mg tablet 9-16 TABLET BY ity o f 00:00: MOUTH [place] 00 DAILY. Medical STOP Branch JARDIANCE. DROPLET PEN 0 Yes [id number] USE [facility] NEEDLE 31 9-16 DIRECTED ity of gauge x 00:00: TO INJECT [place] 5/16" Ndle 00 INSULIN Medica l ONCE DAILY Branch [facility] 10 Yes [id number] TAKE 1 U nivers mg tablet 9-16 TABLET BY ity o f 00:00: MOUTH [place] 00 DAILY. Medical STOP Branch JARDIANCE. DROPLET PEN 0 Yes [id number] USE [facility] NEEDLE 31 9-16 DIRECTED ity of gauge x 00:00: TO INJECT [place] 5/16" Ndle 00 INSULIN Medica l ONCE DAILY Branch [place] [address] Yes [id number] TAKE 1 U nivers mg tablet 9-16 TABLET BY ity o f 00:00: MOUTH [place] 00 DAILY. Medical STOP Branch JARDIANCE. DROPLET PEN Yes [id number] USE [facility] NEEDLE 31 9-16 DIRECTED ity of gauge x 00:00: TO INJECT [place] 5/16" Ndle 00 INSULIN Medica l ONCE DAILY Branch [place] [address] Yes [id number] TAKE 1 U nivers mg tablet 9-16 TABLET BY ity o f 00:00: MOUTH [place] 00 DAILY. Medical STOP Branch JARDIANCE. DROPLET PEN 0 Yes [id number] USE [facility] NEEDLE 31 9-16 DIRECTED ity of gauge x 00:00: TO INJECT [place] 5/16" Ndle 00 INSULIN Medica l ONCE DAILY Branch [place] [address] Yes [id number] TAKE 1 U nivers mg tablet 9-16 TABLET BY ity o f 00:00: MOUTH [place] 00 DAILY. Medical STOP Branch JARDIANCE. DROPLET PEN 0 Yes [id number] USE [facility] NEEDLE 31 9-16 DIRECTED ity of gauge x 00:00: TO INJECT [place] 5/16" Ndle 00 INSULIN Medica l ONCE DAILY Branch [place] [address] Yes [id number] TAKE 1 U nivers mg tablet 9-16 TABLET BY ity o f 00:00: MOUTH [place] 00 DAILY. Medical STOP Branch JARDIANCE. DROPLET PEN 0 Yes [id number] USE [facility] NEEDLE 31 9-16 DIRECTED ity of gauge x 00:00: TO INJECT [place] 5/16" Ndle 00 INSULIN Medica l ONCE DAILY Branch [place] [address] Yes [id number] TAKE 1 U nivers mg tablet 9-16 TABLET BY ity o f 00:00: MOUTH [place] 00 DAILY. Medical STOP Branch JARDIANCE. DROPLET PEN 0 Yes [id number] USE [facility] NEEDLE 31 9-16 DIRECTED ity of gauge x 00:00: TO INJECT [place] 5/16" Ndle 00 INSULIN Medica l ONCE DAILY Branch [place] [address] 0 Yes [id number] TAKE 1 U nivers mg tablet 9-16 TABLET BY ity o f 00:00: MOUTH [place] 00 DAILY. Medical STOP Branch JARDIANCE. DROPLET PEN 0 Yes [id number] USE [facility] NEEDLE 31 9-16 DIRECTED ity of gauge x 00:00: TO INJECT [place] 5/16" Ndle 00 INSULIN Medica l ONCE DAILY Branch [place] [address] Yes [id number] TAKE 1 U nivers mg tablet 9-16 TABLET BY ity o f 00:00: MOUTH [place] 00 DAILY. Medical STOP Branch JARDIANCE. DROPLET PEN 0 Yes [id number] USE [facility] NEEDLE 31 9-16 DIRECTED ity of gauge x 00:00: TO INJECT [place] 5/16" Ndle 00 INSULIN Medica l ONCE DAILY Branch [place] [address] Yes [id number] TAKE 1 U nivers mg tablet 9-16 TABLET BY ity o f 00:00: MOUTH [place] 00 DAILY. Medical STOP Branch JARDIANCE. DROPLET PEN 0 Yes [id number] USE [facility] NEEDLE 31 9-16 DIRECTED ity of gauge x 00:00: TO INJECT [place] 5/16" Ndle 00 INSULIN Medica l ONCE DAILY Branch [place] [address] 0 Yes [id number] TAKE 1 U nivers mg tablet 9-16 TABLET BY ity o f 00:00: MOUTH [place] 00 DAILY. Medical STOP Branch JARDIANCE. DROPLET PEN 0 Yes [id number] USE [facility] NEEDLE 31 9-16 DIRECTED ity of gauge x 00:00: TO INJECT [place] 5/16" Ndle 00 INSULIN Medica l ONCE DAILY Branch [place] [address] 0 Yes [id number] TAKE 1 U nivers mg tablet 9-16 TABLET BY ity o f 00:00: MOUTH [place] 00 DAILY. Medical STOP Branch JARDIANCE. DROPLET PEN 0 Yes [id number] USE [facility] NEEDLE 31 9-16 DIRECTED ity of gauge x 00:00: TO INJECT [place] 5/16" Ndle 00 INSULIN Medica l ONCE DAILY Branch [facility] 10 Yes [id number] TAKE 1 U nivers mg tablet 9-16 TABLET BY ity o f 00:00: MOUTH [place] 00 DAILY. Medical STOP Branch JARDIANCE. DROPLET PEN 0 Yes [id number] USE [facility] NEEDLE 31 9-16 DIRECTED ity of gauge x 00:00: TO INJECT [place] 5/16" Ndle 00 INSULIN Medica l ONCE DAILY Branch [place] [address] Yes [id number] TAKE 1 U nivers mg tablet 9-16 TABLET BY ity o f 00:00: MOUTH [place] 00 DAILY. Medical STOP Branch JARDIANCE. DROPLET PEN 0 Yes [id number] USE [facility] NEEDLE 31 9-16 DIRECTED ity of gauge x 00:00: TO INJECT [place] 5/16" Ndle 00 INSULIN Medica l ONCE DAILY Branch [place] [address] Yes [id number] TAKE 1 U nivers mg tablet 9-16 TABLET BY ity o f 00:00: MOUTH [place] 00 DAILY. Medical STOP Branch JARDIANCE. DROPLET PEN 0 Yes [id number] USE [facility] NEEDLE 31 9-16 DIRECTED ity of gauge x 00:00: TO INJECT [place] 5/16" Ndle 00 INSULIN Medica l ONCE DAILY Branch [place] [address] Yes [id number] TAKE 1 U nivers mg tablet 9-16 TABLET BY ity o f 00:00: MOUTH [place] 00 DAILY. Medical STOP Branch JARDIANCE. DROPLET PEN 0 Yes [id number] USE [facility] NEEDLE 31 9-16 DIRECTED ity of gauge x 00:00: TO INJECT [place] 5/16" Ndle 00 INSULIN Medica l ONCE DAILY Branch [place] [address] 0 Yes [id number] TAKE 1 U nivers mg tablet 9-16 TABLET BY ity o f 00:00: MOUTH [place] 00 DAILY. Medical STOP Branch JARDIANCE. DROPLET PEN 0 Yes [id number] USE [facility] NEEDLE 31 9-16 DIRECTED ity of gauge x 00:00: TO INJECT [place] 5/16" Ndle 00 INSULIN Medica l ONCE DAILY Branch [place] [address] 0 Yes [id number] TAKE 1 U nivers mg tablet 9-16 TABLET BY ity o f 00:00: MOUTH [place] 00 DAILY. Medical STOP Branch JARDIANCE. DROPLET PEN 0 Yes [id number] USE [facility] NEEDLE 31 9-16 DIRECTED ity of gauge x 00:00: TO INJECT [place] 5/16" Ndle 00 INSULIN Medica l ONCE DAILY Branch [place] [address] Yes [id number] TAKE 1 U nivers mg tablet 9-16 TABLET BY ity o f 00:00: MOUTH [place] 00 DAILY. Medical STOP Branch JARDIANCE. DROPLET PEN Yes [id number] USE [facility] NEEDLE 31 9-16 DIRECTED ity of gauge x 00:00: TO INJECT [place] 5/16" Ndle 00 INSULIN Medica l ONCE DAILY Branch [place] [address] Yes [id number] TAKE 1 U nivers mg tablet 9-16 TABLET BY ity o f 00:00: MOUTH [place] 00 DAILY. Medical STOP Branch JARDIANCE. DROPLET PEN 0 Yes [id number] USE [facility] NEEDLE 31 9-16 DIRECTED ity of gauge x 00:00: TO INJECT [place] 5/16" Ndle 00 INSULIN Medica l ONCE DAILY Branch [place] [address] Yes [id number] TAKE 1 U nivers mg tablet 9-16 TABLET BY ity o f 00:00: MOUTH [place] 00 DAILY. Medical STOP Branch JARDIANCE. DROPLET PEN 0 Yes [id number] USE [facility] NEEDLE 31 9-16 DIRECTED ity of gauge x 00:00: TO INJECT [place] 5/16" Ndle 00 INSULIN Medica l ONCE DAILY Branch [place] [address] Yes [id number] TAKE 1 U nivers mg tablet 9-16 TABLET BY ity o f 00:00: MOUTH [place] 00 DAILY. Medical STOP Branch JARDIANCE. DROPLET PEN 0 Yes [id number] USE [facility] NEEDLE 31 9-16 DIRECTED ity of gauge x 00:00: TO INJECT [place] 5/16" Ndle 00 INSULIN Medica l ONCE DAILY Branch [place] [address] Yes [id number] TAKE 1 U nivers mg tablet 9-16 TABLET BY ity o f 00:00: MOUTH [place] 00 DAILY. Medical STOP Branch JARDIANCE. DROPLET PEN 0 Yes [id number] USE [facility] NEEDLE 31 9-16 DIRECTED ity of gauge x 00:00: TO INJECT [place] 5/16" Ndle 00 INSULIN Medica l ONCE DAILY Branch [place] [address] Yes [id number] TAKE 1 U nivers mg tablet 9-16 TABLET BY ity o f 00:00: MOUTH [place] 00 DAILY. Medical STOP Branch JARDIANCE. DROPLET PEN 0 Yes [id number] USE [facility] NEEDLE 31 9-16 DIRECTED ity of gauge x 00:00: TO INJECT [place] 5/16" Ndle 00 INSULIN Medica l ONCE DAILY Branch [place] [address] Yes [id number] TAKE 1 U nivers mg tablet 9-16 TABLET BY ity o f 00:00: MOUTH [place] 00 DAILY. Medical STOP Branch JARDIANCE. DROPLET PEN 0 Yes [id number] USE [facility] NEEDLE 31 9-16 DIRECTED ity of gauge x 00:00: TO INJECT [place] 5/16" Ndle 00 INSULIN Medica l ONCE DAILY Branch [place] [address] Yes [id number] TAKE 1 U nivers mg tablet 9-16 TABLET BY ity o f 00:00: MOUTH [place] 00 DAILY. Medical STOP Branch JARDIANCE. DROPLET PEN Yes [id number] USE [facility] NEEDLE 31 9-16 DIRECTED ity of gauge x 00:00: TO INJECT [place] 5/16" Ndle 00 INSULIN Medica l ONCE DAILY Branch [place] [address] Yes [id number] TAKE 1 U nivers mg tablet 9-16 TABLET BY ity o f 00:00: MOUTH [place] 00 DAILY. Medical STOP Branch JARDIANCE. DROPLET PEN 0 Yes [id number] USE [facility] NEEDLE 31 9-16 DIRECTED ity of gauge x 00:00: TO INJECT [place] 5/16" Ndle 00 INSULIN Medica l ONCE DAILY Branch [place] [address] 0 Yes [id number] TAKE 1 U nivers mg tablet 9-16 TABLET BY ity o f 00:00: MOUTH [place] 00 DAILY. Medical STOP Branch JARDIANCE. DROPLET PEN 0 Yes [id number] USE [facility] NEEDLE 31 9-16 DIRECTED ity of gauge x 00:00: TO INJECT [place] 5/16" Ndle 00 INSULIN Medica l ONCE DAILY Branch [place] [address] 0 Yes [id number] TAKE 1 U nivers mg tablet 9-16 TABLET BY ity o f 00:00: MOUTH [place] 00 DAILY. Medical STOP Branch JARDIANCE. DROPLET PEN 0 Yes [id number] USE [facility] NEEDLE 31 9-16 DIRECTED ity of gauge x 00:00: TO INJECT [place] 5/16" Ndle 00 INSULIN Medica l ONCE DAILY Branch [place] [address] Yes [id number] TAKE 1 U nivers mg tablet 9-16 TABLET BY ity o f 00:00: MOUTH [place] 00 DAILY. Medical STOP Branch JARDIANCE. DROPLET PEN 0 Yes [id number] USE [facility] NEEDLE 31 9-16 DIRECTED ity of gauge x 00:00: TO INJECT [place] 5/16" Ndle 00 INSULIN Medica l ONCE DAILY Branch [place] [address] Yes [id number] TAKE 1 U nivers mg tablet 9-16 TABLET BY ity o f 00:00: MOUTH [place] 00 DAILY. Medical STOP Branch JARDIANCE. DROPLET PEN 0 Yes [id number] USE [facility] NEEDLE 31 9-16 DIRECTED ity of gauge x 00:00: TO INJECT [place] 5/16" Ndle 00 INSULIN Medica l ONCE DAILY Branch [place] [address] Yes [id number] TAKE 1 U nivers mg tablet 9-16 TABLET BY ity o f 00:00: MOUTH [place] 00 DAILY. Medical STOP Branch JARDIANCE. DROPLET PEN 0 Yes [id number] USE [facility] NEEDLE 31 9-16 DIRECTED ity of gauge x 00:00: TO INJECT [place] 5/16" Ndle 00 INSULIN Medica l ONCE DAILY Branch [place] [address] Yes [id number] TAKE 1 U nivers mg tablet 9-16 TABLET BY ity o f 00:00: MOUTH [place] 00 DAILY. Medical STOP Branch JARDIANCE. DROPLET PEN 0 Yes [id number] USE [facility] NEEDLE 31 9-16 DIRECTED ity of gauge x 00:00: TO INJECT [place] 5/16" Ndle 00 INSULIN Medica l ONCE DAILY Branch [place] [address] 0 Yes [id number] TAKE 1 U nivers mg tablet 9-16 TABLET BY ity o f 00:00: MOUTH [place] 00 DAILY. Medical STOP Branch JARDIANCE. DROPLET PEN 0 Yes [id number] USE [facility] NEEDLE 31 9-16 DIRECTED ity of gauge x 00:00: TO INJECT [place] 5/16" Ndle 00 INSULIN Medica l ONCE DAILY Branch [place] [address] Yes [id number] TAKE 1 U nivers mg tablet 9-16 TABLET BY ity o f 00:00: MOUTH [place] 00 DAILY. Medical STOP Branch JARDIANCE. DROPLET PEN 2021-0 Yes [id number] USE [facility] NEEDLE 31 9-16 DIRECTED ity of gauge x 00:00: TO INJECT [place] 5/16" Ndle 00 INSULIN Medica l ONCE DAILY Branch [facility] 0 Yes [id number] TAKE 1 U nivers mg tablet 9-16 TABLET BY ity o f 00:00: MOUTH [place] 00 DAILY. Medical STOP Branch JARDIANCE. DROPLET PEN 0 Yes [id number] USE [facility] NEEDLE 31 9-16 DIRECTED ity of gauge x 00:00: TO INJECT [place] 5/16" Ndle 00 INSULIN Medica l ONCE DAILY Branch [facility] 0 Yes [id number] TAKE 1 U nivers mg tablet 9-16 TABLET BY ity o f 00:00: MOUTH [place] 00 DAILY. Medical STOP Branch JARDIANCE. DROPLET PEN 0 Yes [id number] USE [facility] NEEDLE 31 9-16 DIRECTED ity of gauge x 00:00: TO INJECT [place] 5/16" Ndle 00 INSULIN Medica l ONCE DAILY Branch [facility] 10 0 Yes [id number] TAKE 1 U nivers mg tablet 9-16 TABLET BY ity o f 00:00: MOUTH [place] 00 DAILY. Medical STOP Branch JARDIANCE. DROPLET PEN 0 Yes [id number] USE [facility] NEEDLE 31 9-16 DIRECTED ity of gauge x 00:00: TO INJECT [place] 5/16" Ndle 00 INSULIN Medica l ONCE DAILY Branch [facility] 0 Yes [id number] TAKE 1 U nivers mg tablet 9-16 TABLET BY ity o f 00:00: MOUTH [place] 00 DAILY. Medical STOP Branch JARDIANCE. DROPLET PEN 0 Yes [id number] USE [facility] NEEDLE 31 9-16 DIRECTED ity of gauge x 00:00: TO INJECT [place] 5/16" Ndle 00 INSULIN Medica l ONCE DAILY Branch DROPLET PEN 2021-0 Yes [id number] USE [facility] NEEDLE 31 9-16 DIRECTED ity of gauge x 00:00: TO INJECT [place] 5/16" Ndle 00 INSULIN Medica l ONCE DAILY Branch DROPLET PEN 2021-0 Yes [id number] USE [facility] NEEDLE 31 9-16 DIRECTED ity of gauge x 00:00: TO INJECT [place] 5/16" Ndle 00 INSULIN Medica l ONCE DAILY Branch DROPLET PEN 2021-0 Yes [id number] USE [facility] NEEDLE 31 9-16 DIRECTED ity of gauge x 00:00: TO INJECT [place] 5/16" Ndle 00 INSULIN Medica l ONCE DAILY Branch DROPLET PEN 2021-0 Yes [id number] USE [facility] NEEDLE 31 9-16 DIRECTED ity of gauge x 00:00: TO INJECT [place] 5/16" Ndle 00 INSULIN Medica l ONCE DAILY Branch DROPLET PEN 2021-0 Yes [id number] USE [facility] NEEDLE 31 9-16 DIRECTED ity of gauge x 00:00: TO INJECT [place] 5/16" Ndle 00 INSULIN Medica l ONCE DAILY Branch DROPLET PEN 2021-0 Yes [id number] USE [facility] NEEDLE 31 9-16 DIRECTED ity of gauge x 00:00: TO INJECT [place] 5/16" Ndle 00 INSULIN Medica l ONCE DAILY Branch DROPLET PEN 2021-0 Yes [id number] USE [facility] NEEDLE 31 9-16 DIRECTED ity of gauge x 00:00: TO INJECT [place] 5/16" Ndle 00 INSULIN Medica l ONCE DAILY Branch DROPLET PEN 2021-0 Yes [id number] USE [facility] NEEDLE 31 9-16 DIRECTED ity of gauge x 00:00: TO INJECT [place] 5/16" Ndle 00 INSULIN Medica l ONCE DAILY Branch DROPLET PEN 2021-0 Yes [id number] USE [facility] NEEDLE 31 9-16 DIRECTED ity of gauge x 00:00: TO INJECT [place] 5/16" Ndle 00 INSULIN Medica l ONCE DAILY Branch DROPLET PEN 2021-0 Yes [id number] USE [facility] NEEDLE 31 9-16 DIRECTED ity of gauge x 00:00: TO INJECT [place] 5/16" Ndle 00 INSULIN Medica l ONCE DAILY Branch DROPLET PEN 2021-0 Yes [id number] USE [facility] NEEDLE 31 9-16 DIRECTED ity of gauge x 00:00: TO INJECT [place] 5/16" Ndle 00 INSULIN Medica l ONCE DAILY Branch DROPLET PEN 2021-0 Yes [id number] USE [facility] NEEDLE 31 9-16 DIRECTED ity of gauge x 00:00: TO INJECT [place] 5/16" Ndle 00 INSULIN Medica l ONCE DAILY Branch DROPLET PEN 2021-0 Yes [id number] USE [facility] NEEDLE 31 9-16 DIRECTED ity of gauge x 00:00: TO INJECT [place] 5/16" Ndle 00 INSULIN Medica l ONCE DAILY Branch DROPLET PEN 2021-0 Yes [id number] USE [facility] NEEDLE 31 9-16 DIRECTED ity of gauge x 00:00: TO INJECT [place] 5/16" Ndle 00 INSULIN Medica l ONCE DAILY Branch DROPLET PEN 2021-0 Yes [id number] USE [facility] NEEDLE 31 9-16 DIRECTED ity of gauge x 00:00: TO INJECT [place] 5/16" Ndle 00 INSULIN Medica l ONCE DAILY Branch DROPLET PEN 2021-0 Yes [id number] USE [facility] NEEDLE 31 9-16 DIRECTED ity of gauge x 00:00: TO INJECT [place] 5/16" Ndle 00 INSULIN Medica l ONCE DAILY Branch DROPLET PEN 2021-0 Yes [id number] USE [facility] NEEDLE 31 9-16 DIRECTED ity of gauge x 00:00: TO INJECT [place] 5/16" Ndle 00 INSULIN Medica l ONCE DAILY Branch DROPLET PEN 2021-0 Yes [id number] USE [facility] NEEDLE 31 9-16 DIRECTED ity of gauge x 00:00: TO INJECT [place] 5/16" Ndle 00 INSULIN Medica l ONCE DAILY Branch DROPLET PEN 2021-0 Yes [id number] USE [facility] NEEDLE 31 9-16 DIRECTED ity of gauge x 00:00: TO INJECT [place] 5/16" Ndle 00 INSULIN Medica l ONCE DAILY Branch DROPLET PEN 2021-0 Yes [id number] USE [facility] NEEDLE 31 9-16 DIRECTED ity of gauge x 00:00: TO INJECT [place] 5/16" Ndle 00 INSULIN Medica l ONCE DAILY Branch DROPLET PEN 2021-0 Yes [id number] USE [facility] NEEDLE 31 9-16 DIRECTED ity of gauge x 00:00: TO INJECT [place] 5/16" Ndle 00 INSULIN Medica l ONCE DAILY Branch DROPLET PEN 2021-0 Yes [id number] USE [facility] NEEDLE 31 9-16 DIRECTED ity of gauge x 00:00: TO INJECT [place] 5/16" Ndle 00 INSULIN Medica l ONCE DAILY Branch DROPLET PEN 2021-0 Yes [id number] USE [facility] NEEDLE 31 9-16 DIRECTED ity of gauge x 00:00: TO INJECT [place] 5/16" Ndle 00 INSULIN Medica l ONCE DAILY Branch DROPLET PEN 2021-0 Yes [id number] USE [facility] NEEDLE 31 9-16 DIRECTED ity of gauge x 00:00: TO INJECT [place] 5/16" Ndle 00 INSULIN Medica l ONCE DAILY Branch DROPLET PEN 2022-0 Yes [id number] USE [facility] NEEDLE 31 9-16 DIRECTED ity of gauge x 00:00: TO INJECT [place] 5/16" Ndle 00 INSULIN Medica l ONCE DAILY Branch DROPLET PEN 0 Yes [id number] USE [facility] NEEDLE 31 9-16 DIRECTED ity of gauge x 00:00: TO INJECT [place] 5/16" Ndle 00 INSULIN Medica l ONCE DAILY Branch DROPLET PEN 0 Yes [id number] USE [facility] NEEDLE 31 9-16 DIRECTED ity of gauge x 00:00: TO INJECT [place] 5/16" Ndle 00 INSULIN Medica l ONCE DAILY Branch DROPLET PEN 0 Yes [id number] USE [facility] NEEDLE 31 9-16 DIRECTED ity of gauge x 00:00: TO INJECT [place] 5/16" Ndle 00 INSULIN Medica l ONCE DAILY Branch DROPLET PEN Yes [id number] USE [facility] NEEDLE 31 9-16 DIRECTED ity of gauge x 00:00: TO INJECT [place] 5/16" Ndle 00 INSULIN Medica l ONCE DAILY Branch DROPLET PEN Yes [id number] USE [facility] NEEDLE 31 9-16 DIRECTED ity of gauge x 00:00: TO INJECT [place] 5/16" Ndle 00 INSULIN Medica l ONCE DAILY Branch DROPLET PEN 0 Yes [id number] USE [facility] NEEDLE 31 9-16 DIRECTED ity of gauge x 00:00: TO INJECT [place] 5/16" Ndle 00 INSULIN Medica l ONCE DAILY Branch DROPLET PEN 2021-0 Yes [id number] USE [facility] NEEDLE 31 9-16 DIRECTED ity of gauge x 00:00: TO INJECT [place] 5/16" Ndle 00 INSULIN Medica l ONCE DAILY Branch DROPLET PEN 0 2022- No [id number] USE [facility] NEEDLE 31 9-16 -28 DIRECTED ity o f gauge x 00:00: 00:00 [place]JECT [place] 5/16" Ndle 00 :00 INSULIN Medica l ONCE DAILY Branch FARXIGA 10 3- No [id number] TAKE 1 [facility] mg tablet -16 02-14 TABLET BY ity of 00:00: 00:00 MOUTH [place] 00 :00 DAILY. Medical STOP Branch JARDIANCE. rosuvastati Yes [id number] TAKE 1 [facility] n 20 mg 8-21 TABLET AT ity of tablet 00:00: BEDTIME, [place] 00 STOP Medical TAKING Branch ATORVASTAT IN rosuvastati 0 Yes [id number] TAKE 1 [facility] n 20 mg 8-21 TABLET AT ity of tablet 00:00: BEDTIME, [place] STOP Medical TAKING Branch ATORVASTAT IN rosuvastati 0 Yes [id number] TAKE 1 [facility] n 20 mg 8-21 TABLET AT ity of tablet 00:00: BEDTIME, [place] STOP Medical TAKING Branch ATORVASTAT IN rosuvastati 0 Yes [id number] TAKE 1 [facility] n 20 mg 8-21 TABLET AT ity of tablet 00:00: BEDTIME, [place] STOP Medical TAKING Branch ATORVASTAT IN rosuvastati Yes [id number] TAKE 1 [facility] n 20 mg 8-21 TABLET AT ity of tablet 00:00: BEDTIME, [place] STOP Medical TAKING Branch ATORVASTAT IN rosuvastati Yes [id number] TAKE 1 [facility] n 20 mg 8-21 TABLET AT ity of tablet 00:00: BEDTIME, [place] STOP Medical TAKING Branch ATORVASTAT IN rosuvastati Yes [id number] TAKE 1 Univers n 20 mg 8-21 TABLET AT ity of tablet 00:00: BEDTIME, [place] STOP Medical TAKING Branch ATORVASTAT IN rosuvastati Yes [id number] TAKE 1 Univers n 20 mg 8-21 TABLET AT ity of tablet 00:00: BEDTIME, [place] [address] [facility] ATORVASTAT IN rosuvastati 0 Yes [id number] TAKE 1 [facility] 20 mg 8-21 TABLET AT ity of tablet 00:00: BEDTIME, [place] [address] [facility] ATORVASTAT IN rosuvastati 2021-0 Yes [id number] TAKE 1 [facility] 20 mg 8-21 TABLET AT [facility] of tablet 00:00: BEDTIME, [place] [facility] ATORVASTAT IN rosuvastati 0 Yes [id number] TAKE 1 [facility] 20 mg 8-21 TABLET AT ity of tablet 00:00: BEDTIME, [place] [address] [facility] ATORVASTAT IN rosuvastati 0 Yes [id number] TAKE 1 [facility] 20 mg 8-21 TABLET AT [facility]y of tablet 00:00: BEDTIME, [place] [address] [facility] ATORVASTAT IN rosuvastati 0 Yes [id number] TAKE 1 [facility] 20 mg 8-21 TABLET AT [facility] of tablet 00:00: BEDTIME, [place] [facility] ATORVASTAT IN rosuvastati Yes [id number] TAKE 1 [facility] 20 mg 8-21 TABLET AT ity of tablet 00:00: BEDTIME, [place] [facility] ATORVASTAT IN rosuvastati Yes [id number] TAKE 1 [facility] 20 mg 8-21 TABLET AT ity of tablet 00:00: BEDTIME, [place] STOP Medical TAKING Branch ATORVASTAT IN rosuvastati Yes [id number] TAKE 1 [facility] 20 mg 8-21 TABLET AT ity of tablet 00:00: BEDTIME, [place] [address] STOP Medical TAKING Branch ATORVASTAT IN rosuvastati Yes [id number] TAKE 1 [facility] 20 mg 8-21 TABLET AT ity of tablet 00:00: BEDTIME, [place] [address] STOP Medical TAKING Branch ATORVASTAT IN rosuvastati Yes [id number] TAKE 1 [facility] 20 mg 8-21 TABLET AT ity of tablet 00:00: BEDTIME, [place] [address] STOP Medical TAKING Branch ATORVASTAT IN rosuvastati Yes [id number] TAKE 1 [facility] 20 mg 8-21 TABLET AT ity of tablet 00:00: BEDTIME, [place] [address] STOP Medical TAKING Branch ATORVASTAT IN rosuvastati 0 Yes [id number] TAKE 1 [facility] 20 mg 8-21 TABLET AT ity of tablet 00:00: BEDTIME, [place] [address] STOP Medical TAKING Branch ATORVASTAT IN rosuvastati 0 Yes [id number] TAKE 1 [facility] 20 mg 8-21 TABLET AT ity of tablet 00:00: BEDTIME, [place] [address] STOP Medical TAKING Branch ATORVASTAT IN rosuvastati Yes [id number] TAKE 1 [facility] 20 mg 8-21 TABLET AT ity of tablet 00:00: BEDTIME, [place] [address] STOP Medical TAKING Branch ATORVASTAT IN rosuvastati 0 Yes [id number] TAKE 1 [facility] 20 mg 8-21 TABLET AT ity of tablet 00:00: BEDTIME, [place] [address] STOP Medical TAKING Branch ATORVASTAT IN rosuvastati 0 Yes [id number] TAKE 1 [facility] 20 mg 8-21 TABLET AT ity of tablet 00:00: BEDTIME, [place] STOP Medical TAKING [facility] ATORVASTAT IN rosuvastati 0 Yes [id number] TAKE 1 [facility] 20 mg 8-21 TABLET AT ity of tablet 00:00: BEDTIME, [place] STOP Medical TAKING [facility] ATORVASTAT IN rosuvastati Yes [id number] TAKE 1 [facility] 20 mg 8-21 TABLET AT ity of tablet 00:00: BEDTIME, [place] STOP Medical TAKING [facility] ATORVASTAT IN rosuvastati Yes [id number] TAKE 1 [facility] 20 mg 8-21 TABLET AT ity of tablet 00:00: BEDTIME, [place] STOP [facility] TAKING [facility] ATORVASTAT IN rosuvastati Yes [id number] TAKE 1 [facility] 20 mg 8-21 TABLET AT ity of tablet 00:00: BEDTIME, [place] STOP Medical TAKING [facility] ATORVASTAT IN rosuvastati Yes [id number] TAKE 1 [facility] 20 mg 8-21 TABLET AT ity of tablet 00:00: BEDTIME, [place] STOP [facility] TAKING [facility] ATORVASTAT IN rosuvastati Yes [id number] TAKE 1 [facility] 20 mg 8-21 TABLET AT ity of tablet 00:00: BEDTIME, [place] [address] STOP Medical TAKING Branch ATORVASTAT IN rosuvastati Yes [id number] TAKE 1 [facility] 20 mg 8-21 TABLET AT ity of tablet 00:00: BEDTIME, [place] [address] STOP Medical TAKING Branch ATORVASTAT IN rosuvastati Yes [id number] TAKE 1 [facility] 20 mg 8-21 TABLET AT ity of tablet 00:00: BEDTIME, [place] STOP Medical TAKING [facility] ATORVASTAT IN rosuvastati Yes [id number] TAKE 1 [facility] 20 mg 8-21 TABLET AT ity of tablet 00:00: BEDTIME, [place] [address] STOP Medical TAKING Branch ATORVASTAT IN rosuvastati Yes [id number] TAKE 1 [facility] 20 mg 8-21 TABLET AT ity of tablet 00:00: BEDTIME, [place] [address] STOP Medical TAKING Branch ATORVASTAT IN rosuvastati Yes [id number] TAKE 1 [facility] 20 mg 8-21 TABLET AT ity of tablet 00:00: BEDTIME, [place] STOP [facility] TAKING [facility] ATORVASTAT IN rosuvastati 0 Yes [id number] TAKE 1 [facility] 20 mg 8-21 TABLET AT ity of tablet 00:00: BEDTIME, [place] STOP Medical TAKING Branch ATORVASTAT IN rosuvastati 0 Yes [id number] TAKE 1 [facility] 20 mg 8-21 TABLET AT ity of tablet 00:00: BEDTIME, [place] ST[facility] TAKING [facility] ATORVASTAT IN rosuvastati Yes [id number] TAKE 1 [facility] 20 mg 8-21 TABLET AT ity of tablet 00:00: BEDTIME, [place] ST[facility] TAKING [facility] ATORVASTAT IN rosuvastati Yes [id number] TAKE 1 [facility] 20 mg 8-21 TABLET AT ity of tablet 00:00: BEDTIME, [place] STOP Medical TAKING [facility] ATORVASTAT IN rosuvastati Yes [id number] TAKE 1 [facility] 20 mg 8-21 TABLET AT ity of tablet 00:00: BEDTIME, [place] STOP [facility] TAKING [facility] ATORVASTAT IN rosuvastati Yes [id number] TAKE 1 [facility] 20 mg 8-21 TABLET AT ity of tablet 00:00: BEDTIME, [place] STOP [facility] TAKING [facility] ATORVASTAT IN rosuvastati Yes [id number] TAKE 1 [facility] 20 mg 8-21 TABLET AT ity of tablet 00:00: BEDTIME, [place] STOP Medical TAKING [facility] ATORVASTAT IN rosuvastati 0 Yes [id number] TAKE 1 [facility] 20 mg 8-21 TABLET AT ity of tablet 00:00: BEDTIME, [place] ST[facility] Medical TAKING [facility] ATORVASTAT IN rosuvastati 0 Yes [id number] TAKE 1 [facility] 20 mg 8-21 TABLET AT ity of tablet 00:00: BEDTIME, [place] STOP Medical TAKING [facility] ATORVASTAT IN rosuvastati 0 Yes [id number] TAKE 1 [facility] 20 mg 8-21 TABLET AT ity of tablet 00:00: BEDTIME, [place] ST[facility] TAKING [facility] ATORVASTAT IN rosuvastati Yes [id number] TAKE 1 [facility] 20 mg 8-21 TABLET AT ity of tablet 00:00: BEDTIME, [place] STOP Medical TAKING [facility] ATORVASTAT IN rosuvastati Yes [id number] TAKE 1 [facility] 20 mg 8-21 TABLET AT ity of tablet 00:00: BEDTIME, [place] STOP Medical TAKING Branch ATORVASTAT IN rosuvastati Yes [id number] TAKE 1 [facility] 20 mg 8-21 TABLET AT ity of tablet 00:00: BEDTIME, [place] ST[facility] Medical TAKING [facility] ATORVASTAT IN rosuvastati Yes [id number] TAKE 1 [facility] 20 mg 8-21 TABLET AT ity of tablet 00:00: BEDTIME, [place] STOP Medical TAKING [facility] ATORVASTAT IN rosuvastati Yes [id number] TAKE 1 [facility] 20 mg 8-21 TABLET AT ity of tablet 00:00: BEDTIME, [place] STOP Medical TAKING [facility] ATORVASTAT IN rosuvastati 2022- No [id number] TAKE 1 [facility] 20 mg 8-21 02-03 TABLET AT ity of tablet 00:00: 00:00 BEDTIME, [place] 00 :00 STOP Medical TAKING Branch ATORVASTAT IN fluticasone Yes [id number] 1{spray Use 1 [facility] propionate 8-19 } [place] in ity o f 50 00:00: each [place] mcg/actuati 00 nostril in Me dical on nasal the Branch spray morning. Use 2 spray(s) in each nostril once daily fluticasone Yes [id number] 1{spray Use 1 [facility] propionate 8-19 } [place] in ity o f 50 00:00: each [place] mcg/actuati 00 nostril in Me dical on nasal the Branch spray morning. Use 2 spray(s) in each nostril once daily fluticasone Yes [id number] 1{spray Use 1 [facility] propionate 8-19 } [place] in ity o f 50 00:00: each [place] mcg/actuati 00 nostril in Me dical on nasal the Branch spray morning. Use 2 spray(s) in each nostril once daily fluticasone Yes [id number] 1{spray Use 1 [facility] propionate 8-19 } [place] in ity o f 50 00:00: each [place] mcg/actuati 00 nostril in Me dical on nasal the Branch spray morning. Use 2 spray(s) in each nostril once daily fluticasone Yes [id number] 1{spray Use 1 [facility] propionate 8-19 } [place] in ity o f 50 00:00: each [place] mcg/actuati 00 nostril in Me dical on nasal the Branch spray morning. Use 2 spray(s) in each nostril once daily fluticasone Yes [id number] 1{spray Use 1 [facility] propionate 8-19 } [place] in ity o f 50 00:00: each [place] mcg/actuati 00 nostril in Me dical on nasal the Branch spray morning. Use 2 spray(s) in each nostril once daily fluticasone Yes [id number] 1{spray Use 1 [facility] propionate 8-19 } [place] in ity o f 50 00:00: each [place] mcg/actuati 00 nostril in Me dical on nasal the Branch spray morning. Use 2 spray(s) in each nostril once daily fluticasone Yes [id number] 1{spray Use 1 [facility] propionate 8-19 } [place] in ity o f 50 00:00: each [place] mcg/actuati 00 nostril in Me dical on nasal the Branch spray morning. Use 2 spray(s) in each nostril once daily fluticasone 2021- No [id number] 1{spray Use 1 [facility] propionate 8-19 10-06 } [place] in ity of 50 00:00: 00:00 each [place] mcg/actuati 00 :00 nostril in Me dical on nasal the Branch spray morning. Use 2 spray(s) in each nostril once daily clotrimazol 2021- No [id number] 1{appli Insert 1 [facility] e 1 % 11-28 [id number] cator} Applicator ity of vaginal 00:00: 04:59 into [place] cream 00 :00 vagina at [facility] for 7 days. clotrimazol 2021- No [id number] 1{appli Insert 1 [facility] e 1 % 11-28 [id number] cator} Applicator ity of vaginal 00:00: 04:59 into [place] cream 00 :00 vagina at [facility] for 7 days. clotrimazol 2021- No [id number] 1{appli Insert 1 [facility] 1 % 11-28 [id number] cator} Applicator ity of vaginal 00:00: 04:59 into [place] cream 00 :00 vagina at [facility] for 7 days. clotrimazol 2021- No [id number] 1{appli Insert 1 [facility] e 1 % 11-28 [id number] cator} Applicator ity of vaginal 00:00: 04:59 into [place] cream 00 :00 vagina at [facility] for 7 days. clotrimazol 2021- No [id number] 1{appli Insert 1 [facility] 1 % 11-28 [id number] cator} Applicator ity of vaginal 00:00: 04:59 into [place] cream 00 :00 vagina at [facility] for 7 days. GLIPIZIDE Yes [id number] 10mg TAKE 1 Un [facility] XL 10 mg 24 8-12 TABLET BY ity of hr tablet 00:00: MOUTH [place] 00 DAILY WITH Medical BREAKFAST. Branch STOP GLIMEPIRID E. METFORMIN Yes [id number] TAKE 2 Un [facility]end[facility] ER 500 mg 8-12 TABLETS ity of 24 hr 00:00: TWICE [place] tablet 00 DAILY WITH Medical MEALS Branch GLIPIZIDE Yes [id number] 10mg TAKE 1 [facility] XL 10 mg 24 8-12 TABLET BY ity of hr tablet 00:00: MOUTH [place] 00 DAILY WITH Medical BREAKFAST. Branch STOP GLIMEPIRID E. METFORMIN Yes [id number] TAKE 2 Un [facility] ER 500 mg 8-12 TABLETS ity of 24 hr 00:00: TWICE [place] tablet 00 DAILY WITH Medical MEALS Branch GLIPIZIDE Yes [id number] 10mg TAKE 1 [facility] XL 10 mg 24 8-12 TABLET BY ity of hr tablet 00:00: MOUTH [place] 00 DAILY WITH Medical BREAKFAST. Branch STOP GLIMEPIRID E. METFORMIN Yes [id number] TAKE 2 Un [facility] ER 500 mg 8-12 TABLETS ity of 24 hr 00:00: TWICE [place] tablet 00 DAILY WITH Medical MEALS Branch GLIPIZIDE 2021-0 Yes [id number] 10mg TAKE 1 [facility] XL 10 mg 24 8-12 TABLET BY ity of hr tablet 00:00: MOUTH [place] 00 DAILY WITH Medical BREAKFAST. Branch STOP GLIMEPIRID E. METFORMIN 2021-0 Yes [id number] TAKE 2 Un [facility] ER 500 mg 8-12 TABLETS ity of 24 hr 00:00: TWICE [place] tablet 00 DAILY WITH Medical MEALS Branch GLIPIZIDE 2021-0 Yes [id number] 10mg TAKE 1 [facility] [place] XL 10 mg 24 8-12 TABLET BY ity of hr tablet 00:00: MOUTH [place] 00 DAILY WITH Medical BREAKFAST. Branch STOP GLIMEPIRID E. METFORMIN 2021-0 Yes [id number] TAKE 2 Un [place] ER 500 mg 8-12 TABLETS ity of 24 hr 00:00: TWICE [place] tablet 00 DAILY WITH Medical MEALS Branch GLIPIZIDE 2021-0 Yes [id number] 10mg TAKE 1 [facility] XL 10 mg 24 8-12 TABLET BY ity of hr tablet 00:00: MOUTH [place] 00 DAILY WITH Medical BREAKFAST. Branch STOP GLIMEPIRID E. METFORMIN 2021-0 Yes [id number] TAKE 2 Un [place] ER 500 mg 8-12 TABLETS ity of 24 hr 00:00: TWICE [place] tablet 00 DAILY WITH Medical MEALS Branch GLIPIZIDE 2021-0 Yes [id number] 10mg TAKE 1 [facility] XL 10 mg 24 8-12 TABLET BY ity of hr tablet 00:00: MOUTH [place] 00 DAILY WITH Medical BREAKFAST. Branch STOP GLIMEPIRID E. METFORMIN 2021-0 Yes [id number] TAKE 2 Un [facility] ER 500 mg 8-12 TABLETS ity of 24 hr 00:00: TWICE [place] tablet 00 DAILY WITH Medical MEALS Branch GLIPIZIDE 2021-0 Yes [id number] 10mg TAKE 1 [facility] [place] XL 10 mg 24 8-12 TABLET BY ity of hr tablet 00:00: MOUTH [place] 00 DAILY WITH Medical BREAKFAST. Branch STOP GLIMEPIRID E. METFORMIN 2021-0 Yes [id number] TAKE 2 Un [place] ER 500 mg 8-12 TABLETS ity of 24 hr 00:00: TWICE [place] tablet 00 DAILY WITH Medical MEALS Branch GLIPIZIDE 2021-0 Yes [id number] 10mg TAKE 1 [facility] [place] XL 10 mg 24 8-12 TABLET BY ity of hr tablet 00:00: MOUTH [place] 00 DAILY WITH Medical BREAKFAST. Branch STOP GLIMEPIRID E. METFORMIN 2021-0 Yes [id number] TAKE 2 Un [place] ER 500 mg 8-12 TABLETS ity of 24 hr 00:00: TWICE [place] tablet 00 DAILY WITH Medical MEALS Branch GLIPIZIDE Yes [id number] 10mg TAKE 1 [facility] [place] XL 10 mg 24 8-12 TABLET BY ity of hr tablet 00:00: MOUTH [place] 00 DAILY WITH Medical BREAKFAST. Branch STOP GLIMEPIRID E. METFORMIN 0 Yes [id number] TAKE 2 Un [facility] ER 500 mg 8-12 TABLETS ity of 24 hr 00:00: TWICE [place] tablet 00 DAILY WITH Medical MEALS Branch GLIPIZIDE Yes [id number] 10mg TAKE 1 [facility] [place] XL 10 mg 24 8-12 TABLET BY ity of hr tablet 00:00: MOUTH [place] 00 DAILY WITH Medical BREAKFAST. Branch STOP GLIMEPIRID E. METFORMIN Yes [id number] TAKE 2 Un [place] ER 500 mg 8-12 TABLETS ity of 24 hr 00:00: TWICE [place] tablet 00 DAILY WITH Medical MEALS Branch GLIPIZIDE Yes [id number] 10mg TAKE 1 [facility] [place] XL 10 mg 24 8-12 TABLET BY ity of hr tablet 00:00: MOUTH [place] 00 DAILY WITH Medical BREAKFAST. Branch STOP GLIMEPIRID E. METFORMIN 2021-0 Yes [id number] TAKE 2 Un [facility] ER 500 mg 8-12 TABLETS ity of 24 hr 00:00: TWICE [place] tablet 00 DAILY WITH Medical MEALS Branch GLIPIZIDE 2021-0 Yes [id number] 10mg TAKE 1 [facility] XL 10 mg 24 8-12 TABLET BY ity of hr tablet 00:00: MOUTH [place] 00 DAILY WITH Medical BREAKFAST. Branch STOP GLIMEPIRID E. METFORMIN 2021-0 Yes [id number] TAKE 2 Un [place] ER 500 mg 8-12 TABLETS ity of 24 hr 00:00: TWICE [place] tablet 00 DAILY WITH Medical MEALS Branch GLIPIZIDE 2021-0 Yes [id number] 10mg TAKE 1 [facility] XL 10 mg 24 8-12 TABLET BY ity of hr tablet 00:00: MOUTH [place] 00 DAILY WITH Medical BREAKFAST. Branch STOP GLIMEPIRID E. METFORMIN 2021- Yes [id number] TAKE 2 Un [place] ER 500 mg 8-12 TABLETS ity of 24 hr 00:00: TWICE [place] tablet 00 DAILY WITH Medical MEALS Branch GLIPIZIDE 2021-0 Yes [id number] 10mg TAKE 1 [facility] [place] XL 10 mg 24 8-12 TABLET BY ity of hr tablet 00:00: MOUTH [place] 00 DAILY WITH Medical BREAKFAST. Branch STOP GLIMEPIRID E. METFORMIN 2021-0 Yes [id number] TAKE 2 Un [place] ER 500 mg 8-12 TABLETS ity of 24 hr 00:00: TWICE [place] tablet 00 DAILY WITH Medical MEALS Branch GLIPIZIDE 2021- Yes [id number] 10mg TAKE 1 [facility] [place] XL 10 mg 24 8-12 TABLET BY ity of hr tablet 00:00: MOUTH [place] 00 DAILY WITH Medical BREAKFAST. Branch STOP GLIMEPIRID E. METFORMIN Yes [id number] TAKE 2 Un [place] ER 500 mg 8-12 TABLETS ity of 24 hr 00:00: TWICE [place] tablet 00 DAILY WITH Medical MEALS Branch GLIPIZIDE 2021- Yes [id number] 10mg TAKE 1 [facility] XL 10 mg 24 8-12 TABLET BY ity of hr tablet 00:00: MOUTH [place] 00 DAILY WITH Medical BREAKFAST. Branch STOP GLIMEPIRID E. METFORMIN 2021- Yes [id number] TAKE 2 [facility] [place] ER 500 mg 8-12 TABLETS ity of 24 hr 00:00: TWICE [place] tablet 00 DAILY WITH Medical MEALS Branch GLIPIZIDE 2021-0 Yes [id number] 10mg TAKE 1 [facility] [place] XL 10 mg 24 8-12 TABLET BY ity of hr tablet 00:00: MOUTH [place] 00 DAILY WITH Medical BREAKFAST. Branch STOP GLIMEPIRID E. METFORMIN 2021-0 Yes [id number] TAKE 2 [facility] [place] ER 500 mg 8-12 TABLETS ity of 24 hr 00:00: TWICE [place] tablet 00 DAILY WITH Medical MEALS Branch GLIPIZIDE 2021-0 Yes [id number] 10mg TAKE 1 [facility] [place] XL 10 mg 24 8-12 TABLET BY ity of hr tablet 00:00: MOUTH [place] 00 DAILY WITH Medical BREAKFAST. Branch STOP GLIMEPIRID E. METFORMIN 2021-0 Yes [id number] TAKE 2 [facility] [place] ER 500 mg 8-12 TABLETS ity of 24 hr 00:00: TWICE [place] tablet 00 DAILY WITH Medical MEALS Branch GLIPIZIDE 2021- Yes [id number] 10mg TAKE 1 [facility] [place] XL 10 mg 24 8-12 TABLET BY ity of hr tablet 00:00: MOUTH [place] 00 DAILY WITH Medical BREAKFAST. Branch STOP GLIMEPIRID E. METFORMIN Yes [id number] TAKE 2 Un [place] ER 500 mg 8-12 TABLETS ity of 24 hr 00:00: TWICE [place] tablet 00 DAILY WITH Medical MEALS Branch GLIPIZIDE Yes [id number] 10mg TAKE 1 [facility] [place] XL 10 mg 24 8-12 TABLET BY ity of hr tablet 00:00: MOUTH [place] 00 DAILY WITH Medical BREAKFAST. Branch STOP GLIMEPIRID E. METFORMIN Yes [id number] TAKE 2 Un [place] ER 500 mg 8-12 TABLETS ity of 24 hr 00:00: TWICE [place] tablet 00 DAILY WITH Medical MEALS Branch GLIPIZIDE Yes [id number] 10mg TAKE 1 [facility] XL 10 mg 24 8-12 TABLET BY ity of hr tablet 00:00: MOUTH [place] 00 DAILY WITH Medical BREAKFAST. Branch STOP GLIMEPIRID E. METFORMIN Yes [id number] TAKE 2 Un [facility] ER 500 mg 8-12 TABLETS ity of 24 hr 00:00: TWICE [place] tablet 00 DAILY WITH Medical MEALS Branch GLIPIZIDE Yes [id number] 10mg TAKE 1 [facility] [place] XL 10 mg 24 8-12 TABLET BY ity of hr tablet 00:00: MOUTH [place] 00 DAILY WITH Medical BREAKFAST. Branch STOP GLIMEPIRID E. METFORMIN Yes [id number] TAKE 2 Un [place] ER 500 mg 8-12 TABLETS ity of 24 hr 00:00: TWICE [place] tablet 00 DAILY WITH Medical MEALS Branch GLIPIZIDE Yes [id number] 10mg TAKE 1 [facility] [place] XL 10 mg 24 8-12 TABLET BY ity of hr tablet 00:00: MOUTH [place] 00 DAILY WITH Medical BREAKFAST. Branch STOP GLIMEPIRID E. METFORMIN Yes [id number] TAKE 2 Un [place] ER 500 mg 8-12 TABLETS ity of 24 hr 00:00: TWICE [place] tablet 00 DAILY WITH Medical MEALS Branch GLIPIZIDE Yes [id number] 10mg TAKE 1 [facility] [place] XL 10 mg 24 8-12 TABLET BY ity of hr tablet 00:00: MOUTH [place] 00 DAILY WITH Medical BREAKFAST. Branch STOP GLIMEPIRID E. METFORMIN Yes [id number] TAKE 2 Un [place] ER 500 mg 8-12 TABLETS ity of 24 hr 00:00: TWICE [place] tablet 00 DAILY WITH Medical MEALS Branch GLIPIZIDE Yes [id number] 10mg TAKE 1 [facility] [place] XL 10 mg 24 8-12 TABLET BY ity of hr tablet 00:00: MOUTH [place] 00 DAILY WITH Medical BREAKFAST. Branch STOP GLIMEPIRID E. METFORMIN 0 Yes [id number] TAKE 2 Un [place] ER 500 mg 8-12 TABLETS ity of 24 hr 00:00: TWICE [place] tablet 00 DAILY WITH Medical MEALS Branch GLIPIZIDE Yes [id number] 10mg TAKE 1 [facility] XL 10 mg 24 8-12 TABLET BY ity of hr tablet 00:00: MOUTH [place] 00 DAILY WITH Medical BREAKFAST. Branch STOP GLIMEPIRID E. METFORMIN Yes [id number] TAKE 2 Un [place] ER 500 mg 8-12 TABLETS ity of 24 hr 00:00: TWICE [place] tablet 00 DAILY WITH Medical MEALS Branch GLIPIZIDE Yes [id number] 10mg TAKE 1 [facility] [place] XL 10 mg 24 8-12 TABLET BY ity of hr tablet 00:00: MOUTH [place] 00 DAILY WITH Medical BREAKFAST. Branch STOP GLIMEPIRID E. METFORMIN Yes [id number] TAKE 2 [facility] [place] ER 500 mg 8-12 TABLETS ity of 24 hr 00:00: TWICE [place] tablet 00 DAILY WITH Medical MEALS Branch GLIPIZIDE Yes [id number] 10mg TAKE 1 [facility] [place] XL 10 mg 24 8-12 TABLET BY ity of hr tablet 00:00: MOUTH [place] 00 DAILY WITH Medical BREAKFAST. Branch STOP GLIMEPIRID E. METFORMIN 0 Yes [id number] TAKE 2 [facility] ER 500 mg 8-12 TABLETS ity of 24 hr 00:00: TWICE [place] tablet 00 DAILY WITH Medical MEALS Branch GLIPIZIDE Yes [id number] 10mg TAKE 1 [facility] [place] XL 10 mg 24 8-12 TABLET BY ity of hr tablet 00:00: MOUTH [place] 00 DAILY WITH Medical BREAKFAST. Branch STOP GLIMEPIRID E. METFORMIN Yes [id number] TAKE 2 [facility] [place] ER 500 mg 8-12 TABLETS ity of 24 hr 00:00: TWICE [place] tablet 00 DAILY WITH Medical MEALS Branch GLIPIZIDE 2022-0 Yes [id number] 10mg TAKE 1 [facility] XL 10 mg 24 8-12 TABLET BY ity of hr tablet 00:00: MOUTH [place] 00 DAILY WITH Medical BREAKFAST. Branch STOP GLIMEPIRID E. METFORMIN 2021-0 Yes [id number] TAKE 2 [facility] [place] ER 500 mg 8-12 TABLETS ity of 24 hr 00:00: TWICE [place] tablet 00 DAILY WITH Medical MEALS Branch GLIPIZIDE 0 Yes [id number] 10mg TAKE 1 [facility] XL 10 mg 24 8-12 TABLET BY ity of hr tablet 00:00: MOUTH [place] 00 DAILY WITH Medical BREAKFAST. Branch STOP GLIMEPIRID E. METFORMIN Yes [id number] TAKE 2 Un [facility] ER 500 mg 8-12 TABLETS ity of 24 hr 00:00: TWICE [place] tablet 00 DAILY WITH Medical MEALS Branch GLIPIZIDE Yes [id number] 10mg TAKE 1 [facility] [place] XL 10 mg 24 8-12 TABLET BY ity of hr tablet 00:00: MOUTH [place] 00 DAILY WITH Medical BREAKFAST. Branch STOP GLIMEPIRID E. METFORMIN 0 Yes [id number] TAKE 2 Un [facility] ER 500 mg 8-12 TABLETS ity of 24 hr 00:00: TWICE [place] tablet 00 DAILY WITH Medical MEALS Branch GLIPIZIDE 2021-0 Yes [id number] 10mg TAKE 1 [facility] XL 10 mg 24 8-12 TABLET BY ity of hr tablet 00:00: MOUTH [place] 00 DAILY WITH Medical BREAKFAST. Branch STOP GLIMEPIRID E. METFORMIN 2021-0 Yes [id number] TAKE 2 [facility] ER 500 mg 8-12 TABLETS ity of 24 hr 00:00: TWICE [place] tablet 00 DAILY WITH Medical MEALS Branch GLIPIZIDE 2021-0 Yes [id number] 10mg TAKE 1 [facility] XL 10 mg 24 8-12 TABLET BY ity of hr tablet 00:00: MOUTH [place] 00 DAILY WITH Medical BREAKFAST. Branch STOP GLIMEPIRID E. METFORMIN 2021- Yes [id number] TAKE 2 [facility] [place] ER 500 mg 8-12 TABLETS ity of 24 hr 00:00: TWICE [place] tablet 00 DAILY WITH Medical MEALS Branch GLIPIZIDE 2021-0 Yes [id number] 10mg TAKE 1 [facility] [place] XL 10 mg 24 8-12 TABLET BY ity of hr tablet 00:00: MOUTH [place] 00 DAILY WITH Medical BREAKFAST. Branch STOP GLIMEPIRID E. METFORMIN 2021-0 Yes [id number] TAKE 2 [facility] [place] ER 500 mg 8-12 TABLETS ity of 24 hr 00:00: TWICE [place] tablet 00 DAILY WITH Medical MEALS Branch GLIPIZIDE 2021-0 Yes [id number] 10mg TAKE 1 [facility] [place] XL 10 mg 24 8-12 TABLET BY ity of hr tablet 00:00: MOUTH [place] 00 DAILY WITH Medical BREAKFAST. Branch STOP GLIMEPIRID E. METFORMIN 2021-0 Yes [id number] TAKE 2 Un [place] ER 500 mg 8-12 TABLETS ity of 24 hr 00:00: TWICE [place] tablet 00 DAILY WITH Medical MEALS Branch GLIPIZIDE 2021- Yes [id number] 10mg TAKE 1 [facility] XL 10 mg 24 8-12 TABLET BY ity of hr tablet 00:00: MOUTH [place] 00 DAILY WITH Medical BREAKFAST. Branch STOP GLIMEPIRID E. METFORMIN 2021-0 Yes [id number] TAKE 2 Un [place] ER 500 mg 8-12 TABLETS ity of 24 hr 00:00: TWICE [place] tablet 00 DAILY WITH Medical MEALS Branch GLIPIZIDE 2021-0 Yes [id number] 10mg TAKE 1 [facility] [place] XL 10 mg 24 8-12 TABLET BY ity of hr tablet 00:00: MOUTH [place] 00 DAILY WITH Medical BREAKFAST. Branch STOP GLIMEPIRID E. METFORMIN 2021-0 Yes [id number] TAKE 2 Un [place] ER 500 mg 8-12 TABLETS ity of 24 hr 00:00: TWICE [place] tablet 00 DAILY WITH Medical MEALS Branch GLIPIZIDE 2021-0 Yes [id number] 10mg TAKE 1 [facility] [place] XL 10 mg 24 8-12 TABLET BY ity of hr tablet 00:00: MOUTH [place] 00 DAILY WITH Medical BREAKFAST. Branch STOP GLIMEPIRID E. METFORMIN 2021-0 Yes [id number] TAKE 2 [facility] [place] ER 500 mg 8-12 TABLETS ity of 24 hr 00:00: TWICE [place] tablet 00 DAILY WITH Medical MEALS Branch GLIPIZIDE 2021-0 Yes [id number] 10mg TAKE 1 [facility] [place] XL 10 mg 24 8-12 TABLET BY ity of hr tablet 00:00: MOUTH [place] 00 DAILY WITH Medical BREAKFAST. Branch STOP GLIMEPIRID E. METFORMIN 2021-0 Yes [id number] TAKE 2 [facility] [place] ER 500 mg 8-12 TABLETS ity of 24 hr 00:00: TWICE [place] tablet 00 DAILY WITH Medical MEALS Branch GLIPIZIDE 2021-0 Yes [id number] 10mg TAKE 1 [facility] [place] XL 10 mg 24 8-12 TABLET BY ity of hr tablet 00:00: MOUTH [place] 00 DAILY WITH Medical BREAKFAST. Branch STOP GLIMEPIRID E. METFORMIN 0 Yes [id number] TAKE 2 Un [place] ER 500 mg 8-12 TABLETS ity of 24 hr 00:00: TWICE [place] tablet 00 DAILY WITH Medical MEALS Branch GLIPIZIDE 2021-0 Yes [id number] 10mg TAKE 1 [facility] [place] XL 10 mg 24 8-12 TABLET BY ity of hr tablet 00:00: MOUTH [place] 00 DAILY WITH Medical BREAKFAST. Branch STOP GLIMEPIRID E. METFORMIN Yes [id number] TAKE 2 [facility] [place] ER 500 mg 8-12 TABLETS ity of 24 hr 00:00: TWICE [place] tablet 00 DAILY WITH Medical MEALS Branch GLIPIZIDE 2021- Yes [id number] 10mg TAKE 1 [facility] XL 10 mg 24 8-12 TABLET BY ity of hr tablet 00:00: MOUTH [place] 00 DAILY WITH Medical BREAKFAST. Branch STOP GLIMEPIRID E. METFORMIN Yes [id number] TAKE 2 [facility] ER 500 mg 8-12 TABLETS ity of 24 hr 00:00: TWICE [place] tablet 00 DAILY WITH Medical MEALS Branch GLIPIZIDE 2021-0 Yes [id number] 10mg TAKE 1 [facility] [place] XL 10 mg 24 8-12 TABLET BY ity of hr tablet 00:00: MOUTH [place] 00 DAILY WITH Medical BREAKFAST. Branch STOP GLIMEPIRID E. METFORMIN 2021-0 Yes [id number] TAKE 2 [facility] [place] ER 500 mg 8-12 TABLETS ity of 24 hr 00:00: TWICE [place] tablet 00 DAILY WITH Medical MEALS Branch GLIPIZIDE 2021-0 Yes [id number] 10mg TAKE 1 [facility] [place] XL 10 mg 24 8-12 TABLET BY ity of hr tablet 00:00: MOUTH [place] 00 DAILY WITH Medical BREAKFAST. Branch STOP GLIMEPIRID E. METFORMIN 2021-0 Yes [id number] TAKE 2 [facility] [place] ER 500 mg 8-12 TABLETS ity of 24 hr 00:00: TWICE [place] tablet 00 DAILY WITH Medical MEALS Branch GLIPIZIDE 2021-0 Yes [id number] 10mg TAKE 1 [facility] [place] XL 10 mg 24 8-12 TABLET BY ity of hr tablet 00:00: MOUTH [place] 00 DAILY WITH Medical BREAKFAST. Branch STOP GLIMEPIRID E. METFORMIN 2021-0 Yes [id number] TAKE 2 [facility] [place] ER 500 mg 8-12 TABLETS ity of 24 hr 00:00: TWICE [place] tablet 00 DAILY WITH Medical MEALS Branch GLIPIZIDE 2021-0 Yes [id number] 10mg TAKE 1 [facility] [place] XL 10 mg 24 8-12 TABLET BY ity of hr tablet 00:00: MOUTH [place] 00 DAILY WITH Medical BREAKFAST. Branch STOP GLIMEPIRID E. METFORMIN 2021-0 Yes [id number] TAKE 2 [facility] ER 500 mg 8-12 TABLETS ity of 24 hr 00:00: TWICE [place] tablet 00 DAILY WITH Medical MEALS Branch GLIPIZIDE Yes [id number] 10mg TAKE 1 [facility] XL 10 mg 24 8-12 TABLET BY ity of hr tablet 00:00: MOUTH [place] 00 DAILY WITH Medical BREAKFAST. Branch STOP GLIMEPIRID E. METFORMIN 2021-0 Yes [id number] TAKE 2 [facility] ER 500 mg 8-12 TABLETS ity of 24 hr 00:00: TWICE [place] tablet 00 DAILY WITH Medical MEALS Branch GLIPIZIDE 0 Yes [id number] 10mg TAKE 1 [facility] XL 10 mg 24 8-12 TABLET BY ity of hr tablet 00:00: MOUTH [place] 00 DAILY WITH Medical BREAKFAST. Branch STOP GLIMEPIRID E. METFORMIN 2021-0 Yes [id number] TAKE 2 [facility] [place] ER 500 mg 8-12 TABLETS ity of 24 hr 00:00: TWICE [place] tablet 00 DAILY WITH Medical MEALS Branch GLIPIZIDE 2021-0 Yes [id number] 10mg TAKE 1 [facility] XL 10 mg 24 8-12 TABLET BY ity of hr tablet 00:00: MOUTH [place] 00 DAILY WITH Medical BREAKFAST. Branch STOP GLIMEPIRID E. METFORMIN 2021-0 Yes [id number] TAKE 2 [facility] ER 500 mg 8-12 TABLETS ity of 24 hr 00:00: TWICE [place] tablet 00 DAILY WITH Medical MEALS Branch GLIPIZIDE 2021-0 Yes [id number] 10mg TAKE 1 [facility] [place] XL 10 mg 24 8-12 TABLET BY ity of hr tablet 00:00: MOUTH [place] 00 DAILY WITH Medical BREAKFAST. Branch STOP GLIMEPIRID E. METFORMIN 0 Yes [id number] TAKE 2 [facility] [place] ER 500 mg 8-12 TABLETS ity of 24 hr 00:00: TWICE [place] tablet 00 DAILY WITH Medical MEALS Branch GLIPIZIDE 2021-0 Yes [id number] 10mg TAKE 1 [facility] [place] XL 10 mg 24 8-12 TABLET BY ity of hr tablet 00:00: MOUTH [place] 00 DAILY WITH Medical BREAKFAST. Branch STOP GLIMEPIRID E. METFORMIN 2021-0 Yes [id number] TAKE 2 [facility] [place] ER 500 mg 8-12 TABLETS ity of 24 hr 00:00: TWICE [place] tablet 00 DAILY WITH Medical MEALS Branch GLIPIZIDE 2021-0 Yes [id number] 10mg TAKE 1 [facility] [place] XL 10 mg 24 8-12 TABLET BY ity of hr tablet 00:00: MOUTH [place] 00 DAILY WITH Medical BREAKFAST. Branch STOP GLIMEPIRID E. METFORMIN 2021- Yes [id number] TAKE 2 [facility] [place] ER 500 mg 8-12 TABLETS ity of 24 hr 00:00: TWICE [place] tablet 00 DAILY WITH Medical MEALS Branch GLIPIZIDE 2021-0 Yes [id number] 10mg TAKE 1 [facility] [place] XL 10 mg 24 8-12 TABLET BY ity of hr tablet 00:00: MOUTH [place] 00 DAILY WITH Medical BREAKFAST. Branch STOP GLIMEPIRID E. GLIPIZIDE 2021-0 Yes [id number] 10mg TAKE 1 [facility] [place] XL 10 mg 24 8-12 TABLET BY ity of hr tablet 00:00: MOUTH [place] 00 DAILY WITH Medical BREAKFAST. Branch STOP GLIMEPIRID E. GLIPIZIDE 2021-0 3- No [id number] 10mg TAKE 1 [facility] XL 10 mg 24 8-12 02-06 TABLET BY it y of hr tablet 00:00: 00:00 MOUTH [place] 00 :00 DAILY WITH Medical BREAKFAST. Branch STOP GLIMEPIRID E. METFORMIN 0 3- No [id number] TAKE 2 [facility] ER 500 mg 8-12 02-03 TABLETS ity of 24 hr 00:00: 00:00 TWICE [place] tablet 00 :00 DAILY WITH Medical MEALS Branch NIFEdipine 2021-0 Yes [id number] 60mg Take 1 [facility] XL 60 mg 24 7-25 tablet by [facility] hr tablet 00:00: [place] 00 the Medical morning. Branch NIFEdipine 2021-0 Yes [id number] 60mg Take 1 [facility] XL 60 mg 24 7-25 tablet by [facility] hr tablet 00:00: [place] 00 the Medical morning. Branch NIFEdipine 2021-0 Yes [id number] 60mg Take 1 [facility] XL 60 mg 24 7-25 tablet by [facility] hr tablet 00:00: [place] 00 the Medical morning. Branch NIFEdipine 2021-0 Yes [id number] 60mg Take 1 [facility] XL 60 mg 24 7-25 tablet by [facility] hr tablet 00:00: [place] 00 the Medical morning. Branch NIFEdipine 2-0 Yes [id number] 60mg Take 1 [facility] XL 60 mg 24 7-25 tablet by [facility] hr tablet 00:00: [place] 00 the Medical morning. Branch NIFEdipine 2-0 Yes [id number] 60mg Take 1 [facility] XL 60 mg 24 7-25 tablet by [facility] hr tablet 00:00: [place] 00 the Medical morning. Branch NIFEdipine 2021-0 Yes [id number] 60mg Take 1 [facility] XL 60 mg 24 7-25 tablet by [facility] hr tablet 00:00: [place] the Medical morning. Branch NIFEdipine 2021-0 Yes [id number] 60mg Take 1 [facility] XL 60 mg 24 7-25 tablet by [facility] hr tablet 00:00: [place] 00 the Medical morning. Branch NIFEdipine 2021-0 Yes [id number] 60mg Take 1 [facility] XL 60 mg 24 7-25 tablet by [facility] hr tablet 00:00: [place] 00 the Medical morning. Branch NIFEdipine 2-0 Yes [id number] 60mg Take 1 [facility] XL 60 mg 24 7-25 tablet by [facility] hr tablet 00:00: [place] 00 the Medical morning. Branch NIFEdipine 2-0 Yes [id number] 60mg Take 1 [facility] XL 60 mg 24 7-25 tablet by [facility] hr tablet 00:00: [place] 00 the Medical morning. Branch NIFEdipine 2022-0 Yes [id number] 60mg Take 1 [facility] XL 60 mg 24 7-25 tablet by [facility] hr tablet 00:00: [place] 00 the Medical morning. Branch NIFEdipine 2-0 Yes [id number] 60mg Take 1 [facility] XL 60 mg 24 7-25 tablet by [facility] hr tablet 00:00: [place] 00 the Medical morning. Branch NIFEdipine 2-0 Yes [id number] 60mg Take 1 [facility] XL 60 mg 24 7-25 tablet by [facility] hr tablet 00:00: [place] 00 the Medical morning. Branch NIFEdipine 2-0 Yes [id number] 60mg Take 1 [facility] XL 60 mg 24 7-25 tablet by [facility] hr tablet 00:00: [place] 00 the Medical morning. Branch NIFEdipine 2-0 Yes [id number] 60mg Take 1 [facility] XL 60 mg 24 7-25 tablet by [facility] hr tablet 00:00: [place] 00 the Medical morning. Branch NIFEdipine 2-0 Yes [id number] 60mg Take 1 [facility] XL 60 mg 24 7-25 tablet by [facility] hr tablet 00:00: [place] 00 the Medical morning. Branch NIFEdipine 2-0 Yes [id number] 60mg Take 1 [facility] XL 60 mg 24 7-25 tablet by [facility] hr tablet 00:00: [place] 00 the Medical morning. Branch NIFEdipine 2-0 Yes [id number] 60mg Take 1 [facility] XL 60 mg 24 7-25 tablet by [facility] hr tablet 00:00: [place] 00 the Medical morning. Branch NIFEdipine 2-0 Yes [id number] 60mg Take 1 [facility] XL 60 mg 24 7-25 tablet by [facility] hr tablet 00:00: [place] 00 the Medical morning. Branch NIFEdipine 2-0 Yes [id number] 60mg Take 1 [facility] XL 60 mg 24 7-25 tablet by [facility] hr tablet 00:00: [place] 00 the Medical morning. Branch NIFEdipine 2-0 Yes [id number] 60mg Take 1 [facility] XL 60 mg 24 7-25 tablet by [facility] hr tablet 00:00: [place] 00 the Medical morning. Branch NIFEdipine 2022-0 Yes [id number] 60mg Take 1 [facility] XL 60 mg 24 7-25 tablet by [facility] hr tablet 00:00: [place] 00 the Medical morning. Branch NIFEdipine 2022-0 Yes [id number] 60mg Take 1 [facility] XL 60 mg 24 7-25 tablet by [facility] hr tablet 00:00: [place] 00 the Medical morning. Branch NIFEdipine 2021-0 Yes [id number] 60mg Take 1 [facility] XL 60 mg 24 7-25 tablet by [facility] hr tablet 00:00: [place] 00 the Medical morning. Branch NIFEdipine 2021-0 Yes [id number] 60mg Take 1 [facility] XL 60 mg 24 7-25 tablet by [facility] hr tablet 00:00: [place] 00 the Medical morning. Branch NIFEdipine 2021-0 Yes [id number] 60mg Take 1 [facility] XL 60 mg 24 7-25 tablet by [facility] hr tablet 00:00: [place] 00 the Medical morning. Branch NIFEdipine 2021-0 Yes [id number] 60mg Take 1 [facility] XL 60 mg 24 7-25 tablet by [facility] hr tablet 00:00: [place] 00 the Medical morning. Branch NIFEdipine 2021-0 Yes [id number] 60mg Take 1 [facility] XL 60 mg 24 7-25 tablet by [facility] hr tablet 00:00: [place] 00 the Medical morning. Branch NIFEdipine 2021-0 Yes [id number] 60mg Take 1 [facility] XL 60 mg 24 7-25 tablet by [facility] hr tablet 00:00: [place] 00 the Medical morning. Branch NIFEdipine 2021-0 Yes [id number] 60mg Take 1 [facility] XL 60 mg 24 7-25 tablet by [facility] hr tablet 00:00: [place] 00 the Medical morning. Branch NIFEdipine 2021-0 Yes [id number] 60mg Take 1 [facility] XL 60 mg 24 7-25 tablet by [facility] hr tablet 00:00: [place] 00 the Medical morning. Branch NIFEdipine 2021-0 Yes [id number] 60mg Take 1 [facility] XL 60 mg 24 7-25 tablet by [facility] hr tablet 00:00: [place] 00 the Medical morning. Branch NIFEdipine 2021-0 2021- No [id number] 60mg Take 1 [facility] XL 60 mg 24 7-25 12-09 tablet by it y of hr tablet 00:00: 00:00 mouth in [place] 00 :00 the Medical morning. Branch metoprolol 2021-0 Yes [id number] TAKE 1 [facility] succinate 7-19 TABLET AT ity o f XL 50 mg 24 00:00: BEDTIME [place] tablet 00 (DOSE Medical INCREASE) Branch metoprolol Yes [id number] TAKE 1 [facility] succinate 7-19 TABLET AT ity o f XL 50 mg 24 00:00: BEDTIME [place] tablet 00 (DOSE Medical INCREASE) Branch metoprolol Yes [id number] TAKE 1 [facility] [place] succinate 7-19 TABLET AT ity o f XL 50 mg 24 00:00: BEDTIME [place] tablet 00 (DOSE Medical INCREASE) Branch metoprolol Yes [id number] TAKE 1 [facility] [place] succinate 7-19 TABLET AT ity o f XL 50 mg 24 00:00: BEDTIME [place] tablet 00 (DOSE Medical INCREASE) Branch metoprolol Yes [id number] TAKE 1 [facility] [place] succinate 7-19 TABLET AT ity o f XL 50 mg 24 00:00: BEDTIME [place] tablet 00 (DOSE Medical INCREASE) Branch metoprolol Yes [id number] TAKE 1 [facility] [place] succinate 7-19 TABLET AT ity o f XL 50 mg 24 00:00: BEDTIME [place] tablet 00 (DOSE Medical INCREASE) Branch metoprolol Yes [id number] TAKE 1 [facility] [place] succinate 7-19 TABLET AT ity o f XL 50 mg 24 00:00: BEDTIME [place] tablet 00 (DOSE Medical INCREASE) Branch metoprolol Yes [id number] TAKE 1 [facility] [place] succinate 7-19 TABLET AT ity o f XL 50 mg 24 00:00: BEDTIME [place] tablet 00 (DOSE Medical INCREASE) Branch metoprolol Yes [id number] TAKE 1 [facility] succinate 7-19 TABLET AT ity o f XL 50 mg 24 00:00: BEDTIME [place] tablet 00 (DOSE Medical INCREASE) Branch metoprolol Yes [id number] TAKE 1 [facility] [place] succinate 7-19 TABLET AT ity o f XL 50 mg 24 00:00: BEDTIME [place] tablet 00 (DOSE Medical INCREASE) Branch metoprolol Yes [id number] TAKE 1 [facility] [place] succinate 7-19 TABLET AT ity o f XL 50 mg 24 00:00: BEDTIME [place] tablet 00 (DOSE Medical INCREASE) Branch metoprolol Yes [id number] TAKE 1 [facility] [place] succinate 7-19 TABLET AT ity o f XL 50 mg 24 00:00: BEDTIME [place] tablet 00 (DOSE Medical INCREASE) Branch metoprolol Yes [id number] TAKE 1 [facility] [place] succinate 7-19 TABLET AT ity o f XL 50 mg 24 00:00: BEDTIME [place] tablet 00 (DOSE Medical INCREASE) Branch metoprolol Yes [id number] TAKE 1 [facility] [place] succinate 7-19 TABLET AT ity o f XL 50 mg 24 00:00: BEDTIME [place] tablet 00 (DOSE Medical INCREASE) Branch metoprolol Yes [id number] TAKE 1 [facility] [place] succinate 7-19 TABLET AT ity o f XL 50 mg 24 00:00: BEDTIME [place] tablet 00 (DOSE Medical INCREASE) Branch metoprolol Yes [id number] TAKE 1 [facility] [place] succinate 7-19 TABLET AT ity o f XL 50 mg 24 00:00: BEDTIME [place] tablet 00 (DOSE Medical INCREASE) Branch metoprolol Yes [id number] TAKE 1 [facility] [place] succinate 7-19 TABLET AT ity o f XL 50 mg 24 00:00: BEDTIME [place] tablet 00 (DOSE Medical INCREASE) Branch metoprolol Yes [id number] TAKE 1 [facility] [place] succinate 7-19 TABLET AT ity o f XL 50 mg 24 00:00: BEDTIME [place] tablet 00 (DOSE Medical INCREASE) Branch metoprolol Yes [id number] TAKE 1 [facility] [place] succinate 7-19 TABLET AT ity o f XL 50 mg 24 00:00: BEDTIME [place] tablet 00 (DOSE Medical INCREASE) Branch metoprolol Yes [id number] TAKE 1 [facility] [place] succinate 7-19 TABLET AT ity o f XL 50 mg 24 00:00: BEDTIME [place] tablet 00 (DOSE Medical INCREASE) Branch metoprolol Yes [id number] TAKE 1 [place] succinate 7-19 TABLET AT ity o f XL 50 mg 24 00:00: BEDTIME [place] tablet 00 (DOSE Medical INCREASE) Branch metoprolol Yes [id number] TAKE 1 [facility] [place] succinate 7-19 TABLET AT ity o f XL 50 mg 24 00:00: BEDTIME [place] tablet 00 (DOSE Medical INCREASE) Branch metoprolol Yes [id number] TAKE 1 [facility] [place] succinate 7-19 TABLET AT ity o f XL 50 mg 24 00:00: BEDTIME [place] tablet 00 (DOSE Medical INCREASE) Branch metoprolol Yes [id number] TAKE 1 [facility] [place] succinate 7-19 TABLET AT ity o f XL 50 mg 24 00:00: BEDTIME [place] tablet 00 (DOSE Medical INCREASE) Branch metoprolol Yes [id number] TAKE 1 [facility] [place] succinate 7-19 TABLET AT ity o f XL 50 mg 24 00:00: BEDTIME [place] tablet 00 (DOSE Medical INCREASE) Branch metoprolol Yes [id number] TAKE 1 [facility] [place] succinate 7-19 TABLET AT ity o f XL 50 mg 24 00:00: BEDTIME [place] tablet 00 (DOSE Medical INCREASE) Branch metoprolol Yes [id number] TAKE 1 [facility] [place] succinate 7-19 TABLET AT ity o f XL 50 mg 24 00:00: BEDTIME [place] tablet 00 (DOSE Medical INCREASE) Branch metoprolol Yes [id number] TAKE 1 [facility] [place] succinate 7-19 TABLET AT ity o f XL 50 mg 24 00:00: BEDTIME [place] tablet 00 (DOSE Medical INCREASE) Branch metoprolol Yes [id number] TAKE 1 [facility] [place] succinate 7-19 TABLET AT ity o f XL 50 mg 24 00:00: BEDTIME [place] tablet 00 (DOSE Medical INCREASE) Branch metoprolol Yes [id number] TAKE 1 [facility] [place] succinate 7-19 TABLET AT ity o f XL 50 mg 24 00:00: BEDTIME [place] tablet 00 (DOSE Medical INCREASE) Branch metoprolol Yes [id number] TAKE 1 [facility] [place] succinate 7-19 TABLET AT ity o f XL 50 mg 24 00:00: BEDTIME [place] tablet 00 (DOSE Medical INCREASE) Branch metoprolol Yes [id number] TAKE 1 [facility] [place] succinate 7-19 TABLET AT ity o f XL 50 mg 24 00:00: BEDTIME [place] tablet 00 (DOSE Medical INCREASE) Branch metoprolol Yes [id number] TAKE 1 [facility] [place] succinate 7-19 TABLET AT ity o f XL 50 mg 24 00:00: BEDTIME [place] tablet 00 (DOSE Medical INCREASE) Branch metoprolol Yes [id number] TAKE 1 [place] succinate 7-19 TABLET AT ity o f XL 50 mg 24 00:00: BEDTIME [place] tablet 00 (DOSE Medical INCREASE) Branch metoprolol Yes [id number] TAKE 1 [facility] [place] succinate 7-19 TABLET AT ity o f XL 50 mg 24 00:00: BEDTIME [place] tablet 00 (DOSE Medical INCREASE) Branch metoprolol Yes [id number] TAKE 1 [facility] [place] succinate 7-19 TABLET AT ity o f XL 50 mg 24 00:00: BEDTIME [place] tablet 00 (DOSE Medical INCREASE) Branch metoprolol Yes [id number] TAKE 1 [facility] [place] succinate 7-19 TABLET AT ity o f XL 50 mg 24 00:00: BEDTIME [place] tablet 00 (DOSE Medical INCREASE) Branch metoprolol Yes [id number] TAKE 1 [facility] [place] succinate 7-19 TABLET AT ity o f XL 50 mg 24 00:00: BEDTIME [place] tablet 00 (DOSE Medical INCREASE) Branch metoprolol Yes [id number] TAKE 1 [facility] [place] succinate 7-19 TABLET AT ity o f XL 50 mg 24 00:00: BEDTIME [place] tablet 00 (DOSE Medical INCREASE) Branch metoprolol Yes [id number] TAKE 1 [facility] [place] succinate 7-19 TABLET AT ity o f XL 50 mg 24 00:00: BEDTIME [place] tablet 00 (DOSE Medical INCREASE) Branch metoprolol Yes [id number] TAKE 1 [place] succinate 7-19 TABLET AT ity o f XL 50 mg 24 00:00: BEDTIME [place] tablet 00 (DOSE Medical INCREASE) Branch metoprolol Yes [id number] TAKE 1 [place] succinate 7-19 TABLET AT ity o f XL 50 mg 24 00:00: BEDTIME [place] tablet 00 (DOSE Medical INCREASE) Branch metoprolol Yes [id number] TAKE 1 [facility] [place] succinate 7-19 TABLET AT ity o f XL 50 mg 24 00:00: BEDTIME [place] tablet 00 (DOSE Medical INCREASE) Branch metoprolol Yes [id number] TAKE 1 [place] succinate 7-19 TABLET AT ity o f XL 50 mg 24 00:00: BEDTIME [place] tablet 00 (DOSE Medical INCREASE) Branch metoprolol Yes [id number] TAKE 1 [place] succinate 7-19 TABLET AT ity o f XL 50 mg 24 00:00: BEDTIME [place] tablet 00 (DOSE Medical INCREASE) Branch metoprolol Yes [id number] TAKE 1 [place] succinate 7-19 TABLET AT ity o f XL 50 mg 24 00:00: BEDTIME [place] tablet 00 (DOSE Medical INCREASE) Branch metoprolol Yes [id number] TAKE 1 [place] succinate 7-19 TABLET AT ity o f XL 50 mg 24 00:00: BEDTIME [place] tablet 00 (DOSE Medical INCREASE) Branch metoprolol Yes [id number] TAKE 1 [place] succinate 7-19 TABLET AT ity o f XL 50 mg 24 00:00: BEDTIME [place] tablet 00 (DOSE Medical INCREASE) Branch metoprolol Yes [id number] TAKE 1 [place] succinate 7-19 TABLET AT ity o f XL 50 mg 24 00:00: BEDTIME [place] tablet 00 (DOSE Medical INCREASE) Branch metoprolol Yes [id number] TAKE 1 [place] succinate 7-19 TABLET AT ity o f XL 50 mg 24 00:00: BEDTIME [place] tablet 00 (DOSE Medical INCREASE) Branch metoprolol Yes [id number] TAKE 1 [place] succinate 7-19 TABLET AT ity o f XL 50 mg 24 00:00: BEDTIME [place] tablet 00 (DOSE Medical INCREASE) Branch metoprolol Yes [id number] TAKE 1 [facility] [place] succinate 7-19 TABLET AT ity o f XL 50 mg 24 00:00: BEDTIME [place] tablet 00 (DOSE Medical INCREASE) Branch metoprolol Yes [id number] TAKE 1 [place] succinate 7-19 TABLET AT ity o f XL 50 mg 24 00:00: BEDTIME [place] tablet 00 (DOSE Medical INCREASE) Branch metoprolol Yes [id number] TAKE 1 [place] succinate 7-19 TABLET AT ity o f XL 50 mg 24 00:00: BEDTIME [place] tablet 00 (DOSE Medical INCREASE) Branch metoprolol Yes [id number] TAKE 1 [place] succinate 7-19 TABLET AT ity o f XL 50 mg 24 00:00: BEDTIME [place] tablet 00 (DOSE Medical INCREASE) Branch metoprolol Yes [id number] TAKE 1 [place] succinate 7-19 TABLET AT ity o f XL 50 mg 24 00:00: BEDTIME [place] tablet 00 (DOSE Medical INCREASE) Branch metoprolol Yes [id number] TAKE 1 [place] succinate 7-19 TABLET AT ity o f XL 50 mg 24 00:00: BEDTIME [place] tablet 00 (DOSE Medical INCREASE) Branch metoprolol Yes [id number] TAKE 1 [place] succinate 7-19 TABLET AT ity o f XL 50 mg 24 00:00: BEDTIME [place] tablet 00 (DOSE Medical INCREASE) Branch metoprolol Yes [id number] TAKE 1 [facility] [place] succinate 7-19 TABLET AT ity o f XL 50 mg 24 00:00: BEDTIME [place] tablet 00 (DOSE Medical INCREASE) Branch metoprolol Yes [id number] TAKE 1 [place] succinate 7-19 TABLET AT ity o f XL 50 mg 24 00:00: BEDTIME [place] tablet 00 (DOSE Medical INCREASE) Branch metoprolol Yes [id number] TAKE 1 [place] succinate 7-19 TABLET AT ity o f XL 50 mg 24 00:00: BEDTIME [place] tablet 00 (DOSE Medical INCREASE) Branch metoprolol 2022- No [id number] TAKE 1 [facility] succinate 7-19 02-28 [...] ity of mg capsule 16:13: 100 mg [place] [address] capsule Medical Branch atropine 1 Yes atropine 1 U nivers % 7-16 % eye ity of ophthalmic 16:13: drops [place] drops Medical [facility] Yes [address] Univers ronidazole- 7-16 mg-125 ity of tetracyclin 16:13: mg-125 mg [place] (PYLERA) 29 capsule Medica l 140-125-125 Branch mg per capsule doxycycline Yes doxycyclin [facility] hyclate 100 7-16 e hyclate ity of mg capsule 16:13: 100 mg [place] [address] capsule Medical Branch atropine 1 Yes atropine 1 U nivers % 7-16 % eye ity of ophthalmic 16:13: drops [place] drops [address] [place] [address] Yes [address] [facility] ronidazole- 7-16 mg-125 ity of tetracyclin 16:13: mg-125 mg [place] (PYLERA) 29 capsule Medica l 140-125-125 Branch mg per capsule doxycycline Yes doxycyclin [facility] hyclate 100 7-16 e hyclate ity of mg capsule 16:13: 100 mg [place] [address] capsule Medical Branch atropine 1 Yes atropine 1 U nivers % 7-16 % eye ity of ophthalmic 16:13: drops [place] drops Medical [facility] Yes [address] Univers ronidazole- 7-16 mg-125 ity of tetracyclin 16:13: mg-125 mg [place] (PYLERA) 29 capsule Medica l 140-125-125 Branch mg per capsule doxycycline Yes doxycyclin [facility] hyclate 100 7-16 e hyclate ity of mg capsule 16:13: 100 mg [place] [address] capsule Medical Branch atropine 1 Yes atropine 1 U nivers % 7-16 % eye ity of ophthalmic 16:13: drops [place] drops Medical Branch [facility] Yes [address] [facility] ronidazole- [...] mg [place] 29 capsule Medical Branch ERGOCALCIFE Yes [id number] TAKE 1 [facility] ROL, 7-14 CAPSULE BY ity of VITAMIN D2, 00:00: MOUTH [place] 1,250 mcg 00 EVERY TWO Medic al (50,000 WEEKS WITH Branch unit) FOOD capsule ERGOCALCIFE 2021- Yes [id number] TAKE 1 [facility] ROL, 7-14 CAPSULE BY ity of VITAMIN D2, 00:00: MOUTH [place] 1,250 mcg 00 EVERY TWO Medic al (50,000 WEEKS WITH Branch unit) FOOD capsule ERGOCALCIFE 2021-0 Yes [id number] TAKE 1 [facility] ROL, 7-14 CAPSULE BY ity of VITAMIN D2, 00:00: MOUTH [place] 1,250 mcg 00 EVERY TWO Medic al (50,000 WEEKS WITH Branch unit) FOOD capsule ERGOCALCIFE 2021-0 Yes [id number] TAKE 1 [facility] ROL, 7-14 CAPSULE BY ity of VITAMIN D2, 00:00: MOUTH [place] 1,250 mcg 00 EVERY TWO Medic al (50,000 WEEKS WITH Branch unit) FOOD capsule ERGOCALCIFE 2021-0 Yes [id number] TAKE 1 [facility] ROL, 7-14 CAPSULE BY ity of VITAMIN D2, 00:00: MOUTH [place] 1,250 mcg 00 EVERY TWO Medic al (50,000 WEEKS WITH Branch unit) FOOD capsule ERGOCALCIFE 2021-0 Yes [id number] TAKE 1 [facility] ROL, 7-14 CAPSULE BY ity of VITAMIN D2, 00:00: MOUTH [place] 1,250 mcg 00 EVERY TWO Medic al (50,000 WEEKS WITH Branch unit) FOOD capsule ERGOCALCIFE 2021-0 Yes [id number] TAKE 1 [facility] ROL, 7-14 CAPSULE BY ity of VITAMIN D2, 00:00: MOUTH [place] 1,250 mcg 00 EVERY TWO Medic al (50,000 WEEKS WITH Branch unit) FOOD capsule ERGOCALCIFE 2022-0 Yes [id number] TAKE 1 [facility] ROL, 7-14 CAPSULE BY ity of VITAMIN D2, 00:00: MOUTH [place] 1,250 mcg 00 EVERY TWO Medic al (50,000 WEEKS WITH Branch unit) FOOD capsule ERGOCALCIFE 2022-0 Yes [id number] TAKE 1 [facility] ROL, 7-14 CAPSULE BY ity of VITAMIN D2, 00:00: MOUTH [place] 1,250 mcg 00 EVERY TWO Medic al (50,000 WEEKS WITH Branch unit) FOOD capsule ERGOCALCIFE 2022-0 Yes [id number] TAKE 1 [facility] ROL, 7-14 CAPSULE BY ity of VITAMIN D2, 00:00: MOUTH [place] 1,250 mcg 00 EVERY TWO Medic al (50,000 WEEKS WITH Branch unit) FOOD capsule ERGOCALCIFE 2022-0 Yes [id number] TAKE 1 [facility] ROL, 7-14 CAPSULE BY ity of VITAMIN D2, 00:00: MOUTH [place] 1,250 mcg 00 EVERY TWO Medic al (50,000 WEEKS WITH Branch unit) FOOD capsule ERGOCALCIFE 2022-0 Yes [id number] TAKE 1 [facility] ROL, 7-14 CAPSULE BY ity of VITAMIN D2, 00:00: MOUTH [place] 1,250 mcg 00 EVERY TWO Medic al (50,000 WEEKS WITH Branch unit) FOOD capsule ERGOCALCIFE 2022-0 Yes [id number] TAKE 1 [facility] ROL, 7-14 CAPSULE BY ity of VITAMIN D2, 00:00: MOUTH [place] 1,250 mcg 00 EVERY TWO Medic al (50,000 WEEKS WITH Branch unit) FOOD capsule ERGOCALCIFE 2022-0 Yes [id number] TAKE 1 [facility] ROL, 7-14 CAPSULE BY ity of VITAMIN D2, 00:00: MOUTH [place] 1,250 mcg 00 EVERY TWO Medic al (50,000 WEEKS WITH Branch unit) FOOD capsule ERGOCALCIFE 2022-0 Yes [id number] TAKE 1 [facility] ROL, 7-14 CAPSULE BY ity of VITAMIN D2, 00:00: MOUTH [place] 1,250 mcg 00 EVERY TWO Medic al (50,000 WEEKS WITH Branch unit) FOOD capsule ERGOCALCIFE 2022-0 Yes [id number] TAKE 1 [facility] ROL, 7-14 CAPSULE BY ity of VITAMIN D2, 00:00: MOUTH [place] 1,250 mcg 00 EVERY TWO Medic al (50,000 WEEKS WITH Branch unit) FOOD capsule ERGOCALCIFE 2022-0 Yes [id number] TAKE 1 [facility] ROL, 7-14 CAPSULE BY ity of VITAMIN D2, 00:00: MOUTH [place] 1,250 mcg 00 EVERY TWO Medic al (50,000 WEEKS WITH Branch unit) FOOD capsule ERGOCALCIFE 2022-0 Yes [id number] TAKE 1 [facility] ROL, 7-14 CAPSULE BY ity of VITAMIN D2, 00:00: MOUTH [place] 1,250 mcg 00 EVERY TWO Medic al (50,000 WEEKS WITH Branch unit) FOOD capsule ERGOCALCIFE 2022-0 Yes [id number] TAKE 1 [facility] ROL, 7-14 CAPSULE BY ity of VITAMIN D2, 00:00: MOUTH [place] 1,250 mcg 00 EVERY TWO Medic al (50,000 WEEKS WITH Branch unit) FOOD capsule ERGOCALCIFE 2022-0 Yes [id number] TAKE 1 [facility] ROL, 7-14 CAPSULE BY ity of VITAMIN D2, 00:00: MOUTH [place] 1,250 mcg 00 EVERY TWO Medic al (50,000 WEEKS WITH Branch unit) FOOD capsule ERGOCALCIFE 2022-0 Yes [id number] TAKE 1 [facility] ROL, 7-14 CAPSULE BY ity of VITAMIN D2, 00:00: MOUTH [place] 1,250 mcg 00 EVERY TWO Medic al (50,000 WEEKS WITH Branch unit) FOOD capsule ERGOCALCIFE 2022-0 Yes [id number] TAKE 1 [facility] ROL, 7-14 CAPSULE BY ity of VITAMIN D2, 00:00: MOUTH [place] 1,250 mcg 00 EVERY TWO Medic al (50,000 WEEKS WITH Branch unit) FOOD capsule ERGOCALCIFE 2022-0 Yes [id number] TAKE 1 [facility] ROL, 7-14 CAPSULE BY ity of VITAMIN D2, 00:00: MOUTH [place] 1,250 mcg 00 EVERY TWO Medic al (50,000 WEEKS WITH Branch unit) FOOD capsule ERGOCALCIFE 2022-0 Yes [id number] TAKE 1 [facility] ROL, 7-14 CAPSULE BY ity of VITAMIN D2, 00:00: MOUTH [place] 1,250 mcg 00 EVERY TWO Medic al (50,000 WEEKS WITH Branch unit) FOOD capsule ERGOCALCIFE 2022-0 Yes [id number] TAKE 1 [facility] ROL, 7-14 CAPSULE BY ity of VITAMIN D2, 00:00: MOUTH [place] 1,250 mcg 00 EVERY TWO Medic al (50,000 WEEKS WITH Branch unit) FOOD capsule ERGOCALCIFE 2022-0 Yes [id number] TAKE 1 [facility] ROL, 7-14 CAPSULE BY ity of VITAMIN D2, 00:00: MOUTH [place] 1,250 mcg 00 EVERY TWO Medic al (50,000 WEEKS WITH Branch unit) FOOD capsule ERGOCALCIFE 2022-0 Yes [id number] TAKE 1 [facility] ROL, 7-14 CAPSULE BY ity of VITAMIN D2, 00:00: MOUTH [place] 1,250 mcg 00 EVERY TWO Medic al (50,000 WEEKS WITH Branch unit) FOOD capsule ERGOCALCIFE 2022-0 Yes [id number] TAKE 1 [facility] ROL, 7-14 CAPSULE BY ity of VITAMIN D2, 00:00: MOUTH [place] 1,250 mcg 00 EVERY TWO Medic al (50,000 WEEKS WITH Branch unit) FOOD capsule ERGOCALCIFE 2022-0 Yes [id number] TAKE 1 [facility] ROL, 7-14 CAPSULE BY ity of VITAMIN D2, 00:00: MOUTH [place] 1,250 mcg 00 EVERY TWO Medic al (50,000 WEEKS WITH Branch unit) FOOD capsule ERGOCALCIFE 2022-0 Yes [id number] TAKE 1 [facility] R[facility], 7-14 CAPSULE BY ity of VITAMIN D2, 00:00: MOUTH [place] 1,250 mcg 00 EVERY TWO Medic al (50,000 WEEKS WITH Branch unit) FOOD capsule ERGOCALCIFE 2022-0 Yes [id number] TAKE 1 [facility] R[facility], 7-14 CAPSULE BY ity of VITAMIN D2, 00:00: MOUTH [place] 1,250 mcg 00 EVERY TWO Medic al (50,000 WEEKS WITH Branch unit) FOOD capsule ERGOCALCIFE 2022-0 Yes [id number] TAKE 1 [facility] ROL, 7-14 CAPSULE BY ity of VITAMIN D2, 00:00: MOUTH [place] 1,250 mcg 00 EVERY TWO Medic al (50,000 WEEKS WITH Branch unit) FOOD capsule ERGOCALCIFE 2022-0 Yes [id number] TAKE 1 [facility] R[facility], 7-14 CAPSULE BY ity of VITAMIN D2, 00:00: MOUTH [place] 1,250 mcg 00 EVERY TWO Medic al (50,000 WEEKS WITH Branch unit) FOOD capsule ERGOCALCIFE 2022-0 2022- No [id number] TAKE 1 [facility] ROL, 7-14 12-09 CAPSULE BY ity of VITAMIN D2, 00:00: 00:00 [place] 1[place]250 mcg 00 :00 EVERY TWO Medic al (50,000 WEEKS WITH Branch unit) FOOD capsule dapaglifloz 2021-0 Yes 5mg QD Take 5 mg M ethodi in 10-[address] ([facility]) 5 12:45: daily. [facility] mg tablet 04 l doxycycline 2021-0 Yes doxycyclin [facility] (VIBRAMYCIN 7-[address] ) 100 MG 12:45: 100 mg Hospita capsule 04 capsule l dapaglifloz 2021-0 Yes 5mg QD Take 5 mg M ethodi in 10-[address] ([facility]) 5 12:45: daily. [facility] mg tablet 04 l doxycycline 2021-0 Yes doxycyclin [facility] (VIBRAMYCIN 7-[address] ) 100 MG 12:45: 100 mg Hospita capsule 04 capsule l dapaglifloz 2021-0 Yes 5mg QD Take 5 mg M ethodi in 10-[address] ([facility]) 5 12:45: daily. [facility] mg tablet 04 l doxycycline 2021-0 Yes doxycyclin [facility] (VIBRAMYCIN 7-[address] ) 100 MG 12:45: 100 mg Hospita capsule 04 capsule l metoprolol 2021-0 Yes 100mg QD Take 100 Me thodi succinate 7-[address] XL 12:45: mouth Hospita (TOPROL-XL) 26 daily. l 100 mg 24 hr tablet pantoprazol 2021-0 Yes Take by Met hodi e sodium 7-[address] (PANTOPRAZO 12:45: Hospit [facility]AL) 26 l metoprolol 2-0 Yes 100mg QD Take 100 Me thodi succinate 7-[address] XL 12:45: mouth Hospita (TOPROL-XL) 26 daily. l 100 mg 24 hr tablet pantoprazol 2-0 Yes Take by Met hodi e sodium 7-[address] (PANTOPRAZO 12:45: Hospit [facility]AL) 26 l metoprolol 2022-0 Yes 100mg QD Take 100 Me thodi succinate 7-[address] XL 12:45: mouth Hospita (TOPROL-XL) 26 daily. l 100 mg 24 hr tablet pantoprazol 2022-0 Yes Take by Met hodi e sodium 7-[address] (PANTOPRAZO 12:45: Hospit a [facility] [...] (two) l times a day. fluticasone Yes [id number] 1{spray Use 1 [facility] propionate 5-12 } [place] in ity o f 50 00:00: each [place] mcg/actuati 00 nostril Medic al on nasal daily. Use Bran h spray 2 spray(s) in each nostril [...] [place] 00 DAILY Medical NEEDED Branch famotidine 2022- No TAKE 1 [facility] ers 40 mg 5-12 -28 TABLET BY ity [facility] tablet 00:00: [place] :[place] DA[place] [facility] NEEDED [facility] famotidine 2022- No TAKE 1 [facility] ers 40 mg 5-12 -28 TABLET BY [facility] of tablet 00:00: 00:[place] DA[place] [facility] NEEDED [facility] fluticasone 2021- No [id number] 1{spray Use 1 [facility] propionate 5-03 21-19 } [place] ity of 50 00:00: 00:00 each [place] mcg/actuati 00 :00 nostril Medic al on nasal daily. Use Branc h spray 2 spray(s) in each nostril once daily fluticasone 2021- No [id number] 1{spray Use 1 [facility] propionate 5-03 21-19 } [place] ity of 50 00:00: 00:00 each [place] mcg/actuati 00 :00 nostril Medic al on nasal daily. Use Branc h spray 2 spray(s) in each nostril once daily dulaglutide Yes [id number] INJECT [facility] (TRULICITY) 5-06 1.5MG (1 ity of 1.5 mg/0.5 00:00: PEN) [place] mL PnIj 00 SUBCUTANEO Medica l USLY EVERY Branch WEEK dulaglutide Yes [id number] INJECT [facility] (TRULICITY) 5-06 1.5MG (1 ity of 1.5 mg/0.5 00:00: PEN) [place] mL PnIj 00 SUBCUTANEO Medica l USLY EVERY Branch WEEK dulaglutide Yes [id number] INJECT [facility] (TRULICITY) 5-06 1.5MG (1 ity of 1.5 mg/0.5 00:00: PEN) [place] mL PnIj 00 SUBCUTANEO Medica l USLY EVERY Branch WEEK dulaglutide Yes [id number] INJECT [facility] (TRULICITY) 5-06 1.5MG (1 ity of 1.5 mg/0.5 00:00: PEN) [place] mL PnIj 00 SUBCUTANEO Medica l USLY EVERY Branch WEEK dulaglutide Yes [id number] INJECT [facility] (TRULICITY) 5-06 1.5MG (1 ity of 1.5 mg/0.5 00:00: PEN) [place] mL PnIj 00 SUBCUTANEO Medica l USLY EVERY Branch WEEK dulaglutide Yes [id number] INJECT [facility] (TRULICITY) 5-06 1.5MG (1 ity of 1.5 mg/0.5 00:00: PEN) [place] mL PnIj 00 SUBCUTANEO Medica l USLY EVERY Branch WEEK dulaglutide Yes [id number] INJECT [facility] (TRULICITY) 5-06 1.5MG (1 ity of 1.5 mg/0.5 00:00: PEN) [place] mL PnIj 00 SUBCUTANEO Medica l USLY EVERY Branch WEEK dulaglutide Yes [id number] INJECT [facility] (TRULICITY) 5-06 1.5MG (1 ity of 1.5 mg/0.5 00:00: PEN) [place] mL PnIj 00 SUBCUTANEO Medica l USLY EVERY Branch WEEK dulaglutide Yes [id number] INJECT [facility] (TRULICITY) 5-06 1.5MG (1 ity of 1.5 mg/0.5 00:00: PEN) [place] mL PnIj 00 SUBCUTANEO Medica l USLY EVERY Branch WEEK dulaglutide Yes [id number] INJECT [facility] (TRULICITY) 5-06 1.5MG (1 ity of 1.5 mg/0.5 00:00: PEN) [place] mL PnIj 00 SUBCUTANEO Medica l USLY EVERY Branch WEEK dulaglutide Yes [id number] INJECT [facility] (TRULICITY) 5-06 1.5MG (1 ity of 1.5 mg/0.5 00:00: PEN) [place] mL PnIj 00 SUBCUTANEO Medica l USLY EVERY Branch WEEK dulaglutide Yes [id number] INJECT [facility] (TRULICITY) 5-06 1.5MG (1 ity of 1.5 mg/0.5 00:00: PEN) [place] mL PnIj 00 SUBCUTANEO Medica l USLY EVERY Branch WEEK dulaglutide Yes [id number] INJECT [facility] (TRULICITY) 5-06 1.5MG (1 ity of 1.5 mg/0.5 00:00: PEN) [place] mL PnIj 00 SUBCUTANEO Medica l USLY EVERY Branch WEEK dulaglutide Yes [id number] INJECT [facility] (TRULICITY) 5-06 1.5MG (1 ity of 1.5 mg/0.5 00:00: PEN) [place] mL PnIj 00 SUBCUTANEO Medica l USLY EVERY Branch WEEK dulaglutide Yes [id number] INJECT [facility] (TRULICITY) 5-06 1.5MG (1 ity of 1.5 mg/0.5 00:00: PEN) [place] mL PnIj 00 SUBCUTANEO Medica l USLY EVERY Branch WEEK dulaglutide Yes [id number] INJECT [facility] (TRULICITY) 5-06 1.5MG (1 ity of 1.5 mg/0.5 00:00: PEN) [place] mL PnIj 00 SUBCUTANEO Medica l USLY EVERY Branch WEEK dulaglutide Yes [id number] INJECT [facility] (TRULICITY) 5-06 1.5MG (1 ity of 1.5 mg/0.5 00:00: PEN) [place] mL PnIj 00 SUBCUTANEO Medica l USLY EVERY Branch WEEK dulaglutide Yes [id number] INJECT [facility] (TRULICITY) 5-06 1.5MG (1 ity of 1.5 mg/0.5 00:00: PEN) [place] mL PnIj 00 SUBCUTANEO Medica l USLY EVERY Branch WEEK dulaglutide Yes [id number] INJECT [facility] (TRULICITY) 5-06 1.5MG (1 ity of 1.5 mg/0.5 00:00: PEN) [place] mL PnIj 00 SUBCUTANEO Medica l USLY EVERY Branch WEEK dulaglutide Yes [id number] INJECT [facility] (TRULICITY) 5-06 1.5MG (1 ity of 1.5 mg/0.5 00:00: PEN) [place] mL PnIj 00 SUBCUTANEO Medica l USLY EVERY Branch WEEK dulaglutide Yes [id number] INJECT [facility] (TRULICITY) 5-06 1.5MG (1 ity of 1.5 mg/0.5 00:00: PEN) [place] mL PnIj 00 SUBCUTANEO Medica l USLY EVERY Branch WEEK dulaglutide Yes [id number] INJECT [facility] (TRULICITY) 5-06 1.5MG (1 ity of 1.5 mg/0.5 00:00: PEN) [place] mL PnIj 00 SUBCUTANEO Medica l USLY EVERY Branch WEEK dulaglutide Yes [id number] INJECT [facility] (TRULICITY) 5-06 1.5MG (1 ity of 1.5 mg/0.5 00:00: PEN) [place] mL PnIj 00 SUBCUTANEO Medica l USLY EVERY Branch WEEK dulaglutide Yes [id number] INJECT [facility] (TRULICITY) 5-06 1.5MG (1 ity of 1.5 mg/0.5 00:00: PEN) [place] mL PnIj 00 SUBCUTANEO Medica l USLY EVERY Branch WEEK dulaglutide Yes [id number] INJECT [facility] (TRULICITY) 5-06 1.5MG (1 ity of 1.5 mg/0.5 00:00: PEN) [place] mL PnIj 00 SUBCUTANEO Medica l USLY EVERY Branch WEEK dulaglutide Yes [id number] INJECT [facility] (TRULICITY) 5-06 1.5MG (1 ity of 1.5 mg/0.5 00:00: PEN) [place] mL PnIj 00 SUBCUTANEO Medica l USLY EVERY Branch WEEK dulaglutide Yes [id number] INJECT [facility] (TRULICITY) 5-06 1.5MG (1 ity of 1.5 mg/0.5 00:00: PEN) [place] mL PnIj 00 SUBCUTANEO Medica l USLY EVERY Branch WEEK dulaglutide Yes [id number] INJECT [facility] (TRULICITY) 5-06 1.5MG (1 ity of 1.5 mg/0.5 00:00: PEN) [place] mL PnIj 00 SUBCUTANEO Medica l USLY EVERY Branch WEEK dulaglutide Yes [id number] INJECT [facility] (TRULICITY) 5-06 1.5MG (1 ity of 1.5 mg/0.5 00:00: PEN) [place] mL PnIj 00 SUBCUTANEO Medica l USLY EVERY Branch WEEK dulaglutide Yes [id number] INJECT [facility] (TRULICITY) 5-06 1.5MG (1 ity of 1.5 mg/0.5 00:00: PEN) [place] mL PnIj 00 SUBCUTANEO Medica l USLY EVERY Branch WEEK dulaglutide Yes [id number] INJECT [facility] (TRULICITY) 5-06 1.5MG (1 ity of 1.5 mg/0.5 00:00: PEN) [place] mL PnIj 00 SUBCUTANEO Medica l USLY EVERY Branch WEEK dulaglutide Yes [id number] INJECT [facility] (TRULICITY) 5-06 1.5MG (1 ity of 1.5 mg/0.5 00:00: PEN) [place] mL PnIj 00 SUBCUTANEO Medica l USLY EVERY Branch WEEK dulaglutide Yes [id number] INJECT [facility] (TRULICITY) 5-06 1.5MG (1 ity of 1.5 mg/0.5 00:00: PEN) [place] mL PnIj 00 SUBCUTANEO Medica l USLY EVERY Branch WEEK dulaglutide Yes [id number] INJECT [facility] (TRULICITY) 5-06 1.5MG (1 ity of 1.5 mg/0.5 00:00: PEN) [place] mL PnIj 00 SUBCUTANEO Medica l USLY EVERY Branch WEEK dulaglutide Yes [id number] INJECT [facility] (TRULICITY) 5-06 1.5MG (1 ity of 1.5 mg/0.5 00:00: PEN) [place] mL PnIj 00 SUBCUTANEO Medica l USLY EVERY Branch WEEK dulaglutide Yes [id number] INJECT [facility] (TRULICITY) 5-06 1.5MG (1 ity of 1.5 mg/0.5 00:00: PEN) [place] mL PnIj 00 SUBCUTANEO Medica l USLY EVERY Branch WEEK dulaglutide Yes [id number] INJECT [facility] (TRULICITY) 5-06 1.5MG (1 ity of 1.5 mg/0.5 00:00: PEN) [place] mL PnIj 00 SUBCUTANEO Medica l USLY EVERY Branch WEEK dulaglutide Yes [id number] INJECT [facility] (TRULICITY) 5-06 1.5MG (1 ity of 1.5 mg/0.5 00:00: PEN) [place] mL PnIj 00 SUBCUTANEO Medica l USLY EVERY Branch WEEK dulaglutide Yes [id number] INJECT [facility] (TRULICITY) 5-06 1.5MG (1 ity of 1.5 mg/0.5 00:00: PEN) [place] mL PnIj 00 SUBCUTANEO Medica l USLY EVERY Branch WEEK dulaglutide Yes [id number] INJECT [facility] (TRULICITY) 5-06 1.5MG (1 ity of 1.5 mg/0.5 00:00: PEN) [place] mL PnIj 00 SUBCUTANEO Medica l USLY EVERY Branch WEEK dulaglutide Yes [id number] INJECT [facility] (TRULICITY) 5-06 1.5MG (1 ity of 1.5 mg/0.5 00:00: PEN) [place] mL PnIj 00 SUBCUTANEO Medica l USLY EVERY Branch WEEK dulaglutide Yes [id number] INJECT [facility] (TRULICITY) 5-06 1.5MG (1 ity of 1.5 mg/0.5 00:00: PEN) [place] mL PnIj 00 SUBCUTANEO Medica l USLY EVERY Branch WEEK dulaglutide Yes [id number] INJECT [facility] (TRULICITY) 5-06 1.5MG (1 ity of 1.5 mg/0.5 00:00: PEN) [place] mL PnIj 00 SUBCUTANEO Medica l USLY EVERY Branch WEEK dulaglutide Yes [id number] INJECT [facility] (TRULICITY) 5-06 1.5MG (1 ity of 1.5 mg/0.5 00:00: PEN) [place] mL PnIj 00 SUBCUTANEO Medica l USLY EVERY Branch WEEK dulaglutide Yes [id number] INJECT [facility] (TRULICITY) 5-06 1.5MG (1 ity of 1.5 mg/0.5 00:00: PEN) [place] mL PnIj 00 SUBCUTANEO Medica l USLY EVERY Branch WEEK dulaglutide Yes [id number] INJECT [facility] (TRULICITY) 5-06 1.5MG (1 ity of 1.5 mg/0.5 00:00: PEN) [place] mL PnIj 00 SUBCUTANEO Medica l USLY EVERY Branch WEEK dulaglutide Yes [id number] INJECT [facility] (TRULICITY) 5-06 1.5MG (1 ity of 1.5 mg/0.5 00:00: PEN) [place] mL PnIj 00 SUBCUTANEO Medica l USLY EVERY Branch WEEK dulaglutide Yes [id number] INJECT [facility] (TRULICITY) 5-06 1.5MG (1 ity of 1.5 mg/0.5 00:00: PEN) [place] mL PnIj 00 SUBCUTANEO Medica l USLY EVERY Branch WEEK dulaglutide Yes [id number] INJECT [facility] (TRULICITY) 5-06 1.5MG (1 ity of 1.5 mg/0.5 00:00: PEN) [place] mL PnIj 00 SUBCUTANEO Medica l USLY EVERY Branch WEEK dulaglutide Yes [id number] INJECT [facility] (TRULICITY) 5-06 1.5MG (1 ity of 1.5 mg/0.5 00:00: PEN) [place] mL PnIj 00 SUBCUTANEO Medica l USLY EVERY Branch WEEK dulaglutide Yes [id number] INJECT [facility] (TRULICITY) 5-06 1.5MG (1 ity of 1.5 mg/0.5 00:00: PEN) [place] mL PnIj 00 SUBCUTANEO Medica l USLY EVERY Branch WEEK dulaglutide Yes [id number] INJECT [facility] (TRULICITY) 5-06 1.5MG (1 ity of 1.5 mg/0.5 00:00: PEN) [place] mL PnIj 00 SUBCUTANEO Medica l USLY EVERY Branch WEEK dulaglutide Yes [id number] INJECT [facility] (TRULICITY) 5-06 1.5MG (1 ity of 1.5 mg/0.5 00:00: PEN) [place] mL PnIj 00 SUBCUTANEO Medica l USLY EVERY Branch WEEK dulaglutide Yes [id number] INJECT [facility] (TRULICITY) 5-06 1.5MG (1 ity of 1.5 mg/0.5 00:00: PEN) [place] mL PnIj 00 SUBCUTANEO Medica l USLY EVERY Branch WEEK dulaglutide Yes [id number] INJECT [facility] (TRULICITY) 5-06 1.5MG (1 ity of 1.5 mg/0.5 00:00: PEN) [place] mL PnIj 00 SUBCUTANEO Medica l USLY EVERY Branch WEEK dulaglutide Yes [id number] INJECT [facility] (TRULICITY) 5-06 1.5MG (1 ity of 1.5 mg/0.5 00:00: PEN) [place] mL PnIj 00 SUBCUTANEO Medica l USLY EVERY Branch WEEK dulaglutide Yes [id number] INJECT [facility] (TRULICITY) 5-06 1.5MG (1 ity of 1.5 mg/0.5 00:00: PEN) [place] mL PnIj 00 SUBCUTANEO Medica l USLY EVERY Branch WEEK dulaglutide Yes [id number] INJECT [facility] (TRULICITY) 5-06 1.5MG (1 ity of 1.5 mg/0.5 00:00: PEN) [place] mL PnIj 00 SUBCUTANEO Medica l USLY EVERY Branch WEEK dulaglutide Yes [id number] INJECT [facility] (TRULICITY) 5-06 1.5MG (1 ity of 1.5 mg/0.5 00:00: PEN) [place] mL PnIj 00 SUBCUTANEO Medica l USLY EVERY Branch WEEK dulaglutide Yes [id number] INJECT [facility] (TRULICITY) 5-06 1.5MG (1 ity of 1.5 mg/0.5 00:00: PEN) [place] mL PnIj 00 SUBCUTANEO Medica l USLY EVERY Branch WEEK dulaglutide Yes [id number] INJECT [facility] (TRULICITY) 5-06 1.5MG (1 ity of 1.5 mg/0.5 00:00: PEN) [place] mL PnIj 00 SUBCUTANEO Medica l USLY EVERY Branch WEEK dulaglutide Yes [id number] INJECT [facility] (TRULICITY) 5-06 1.5MG (1 ity of 1.5 mg/0.5 00:00: PEN) [place] mL PnIj 00 SUBCUTANEO Medica l USLY EVERY Branch WEEK dulaglutide Yes [id number] INJECT [facility] (TRULICITY) 5-06 1.5MG (1 ity of 1.5 mg/0.5 00:00: PEN) [place] mL PnIj 00 SUBCUTANEO Medica l USLY EVERY Branch WEEK dulaglutide Yes [id number] INJECT [facility] (TRULICITY) 5-06 1.5MG (1 ity of 1.5 mg/0.5 00:00: PEN) [place] mL PnIj 00 SUBCUTANEO Medica l USLY EVERY Branch WEEK dulaglutide Yes [id number] INJECT [facility] (TRULICITY) 5-06 1.5MG (1 ity of 1.5 mg/0.5 00:00: PEN) [place] mL PnIj 00 SUBCUTANEO Medica l USLY EVERY Branch WEEK dulaglutide Yes [id number] INJECT [facility] (TRULICITY) 5-06 1.5MG (1 ity of 1.5 mg/0.5 00:00: PEN) [place] mL PnIj 00 SUBCUTANEO Medica l USLY EVERY Branch WEEK dulaglutide Yes [id number] INJECT [facility] (TRULICITY) 5-06 1.5MG (1 ity of 1.5 mg/0.5 00:00: PEN) [place] mL PnIj 00 SUBCUTANEO Medica l USLY EVERY Branch WEEK dulaglutide Yes [id number] INJECT [facility] (TRULICITY) 5-06 1.5MG (1 ity of 1.5 mg/0.5 00:00: PEN) [place] mL PnIj 00 SUBCUTANEO Medica l USLY EVERY Branch WEEK dulaglutide Yes [id number] INJECT [facility] (TRULICITY) 5-06 1.5MG (1 ity of 1.5 mg/0.5 00:00: PEN) [place] mL PnIj 00 SUBCUTANEO Medica l USLY EVERY Branch WEEK dulaglutide Yes [id number] INJECT [facility] (TRULICITY) 5-06 1.5MG (1 ity of 1.5 mg/0.5 00:00: PEN) [place] mL PnIj 00 SUBCUTANEO Medica l USLY EVERY Branch WEEK dulaglutide Yes [id number] INJECT [facility] (TRULICITY) 5-06 1.5MG (1 ity of 1.5 mg/0.5 00:00: PEN) [place] mL PnIj 00 SUBCUTANEO Medica l USLY EVERY Branch WEEK dulaglutide Yes [id number] INJECT [facility] (TRULICITY) 5-06 1.5MG (1 ity of 1.5 mg/0.5 00:00: PEN) [place] mL PnIj 00 SUBCUTANEO Medica l USLY EVERY Branch WEEK dulaglutide Yes [id number] INJECT [facility] (TRULICITY) 5-06 1.5MG (1 ity of 1.5 mg/0.5 00:00: PEN) [place] mL PnIj 00 SUBCUTANEO Medica l USLY EVERY Branch WEEK dulaglutide Yes [id number] INJECT [facility] (TRULICITY) 5-06 1.5MG (1 ity of 1.5 mg/0.5 00:00: PEN) [place] mL PnIj 00 SUBCUTANEO Medica l USLY EVERY Branch WEEK dulaglutide Yes [id number] INJECT [facility] (TRULICITY) 5-06 1.5MG (1 ity of 1.5 mg/0.5 00:00: PEN) [place] mL PnIj 00 SUBCUTANEO Medica l USLY EVERY Branch WEEK dulaglutide Yes [id number] INJECT [facility] (TRULICITY) 5-06 1.5MG (1 ity of 1.5 mg/0.5 00:00: PEN) [place] mL PnIj 00 SUBCUTANEO Medica l USLY EVERY Branch WEEK dulaglutide Yes [id number] INJECT [facility] (TRULICITY) 5-06 1.5MG (1 ity of 1.5 mg/0.5 00:00: PEN) [place] mL PnIj 00 SUBCUTANEO Medica l USLY EVERY Branch WEEK dulaglutide Yes [id number] INJECT [facility] (TRULICITY) 5-06 1.5MG (1 ity of 1.5 mg/0.5 00:00: PEN) [place] mL PnIj 00 SUBCUTANEO Medica l USLY EVERY Branch WEEK dulaglutide Yes [id number] INJECT [facility] (TRULICITY) 5-06 1.5MG (1 ity of 1.5 mg/0.5 00:00: PEN) [place] mL PnIj 00 SUBCUTANEO Medica l USLY EVERY Branch WEEK dulaglutide Yes [id number] INJECT [facility] (TRULICITY) 5-06 1.5MG (1 ity of 1.5 mg/0.5 00:00: PEN) [place] mL PnIj 00 SUBCUTANEO Medica l USLY EVERY Branch WEEK dulaglutide Yes [id number] INJECT [facility] (TRULICITY) 5-06 1.5MG (1 ity of 1.5 mg/0.5 00:00: PEN) [place] mL PnIj 00 SUBCUTANEO Medica l USLY EVERY Branch WEEK dulaglutide Yes [id number] INJECT [facility] (TRULICITY) 5-06 1.5MG (1 ity of 1.5 mg/0.5 00:00: PEN) [place] mL PnIj 00 SUBCUTANEO Medica l USLY EVERY Branch WEEK dulaglutide Yes [id number] INJECT [facility] (TRULICITY) 5-06 1.5MG (1 ity of 1.5 mg/0.5 00:00: PEN) [place] mL PnIj 00 SUBCUTANEO Medica l USLY EVERY Branch WEEK dulaglutide Yes [id number] INJECT [facility] (TRULICITY) 5-06 1.5MG (1 ity of 1.5 mg/0.5 00:00: PEN) [place] mL PnIj 00 SUBCUTANEO Medica l USLY EVERY Branch WEEK dulaglutide Yes [id number] INJECT [facility] (TRULICITY) 5-06 1.5MG (1 ity of 1.5 mg/0.5 00:00: PEN) [place] mL PnIj 00 SUBCUTANEO Medica l USLY EVERY Branch WEEK dulaglutide Yes [id number] INJECT [facility] (TRULICITY) 5-06 1.5MG (1 ity of 1.5 mg/0.5 00:00: PEN) [place] mL PnIj 00 SUBCUTANEO Medica l USLY EVERY Branch WEEK dulaglutide Yes [id number] INJECT [facility] (TRULICITY) 5-06 1.5MG (1 ity of 1.5 mg/0.5 00:00: PEN) [place] mL PnIj 00 SUBCUTANEO Medica l USLY EVERY Branch WEEK dulaglutide Yes [id number] INJECT [facility] (TRULICITY) 5-06 1.5MG (1 ity of 1.5 mg/0.5 00:00: PEN) [place] mL PnIj 00 SUBCUTANEO Medica l USLY EVERY Branch WEEK dulaglutide 3- No [id number] INJECT [facility] (TRULICITY) 5-06 04-28 1.5MG (1 ity of 1.5 mg/0.5 00:00: 00:00 PEN) [place] mL PnIj 00 :00 SUBCUTANEO Medica l USLY EVERY Branch WEEK dulaglutide 3- No [id number] INJECT [facility] (TRULICITY) 5- 04-28 1.5MG (1 [...] 00:00: [place] drops 00 [facility] Branch Clobetasol 2021-0 Yes [id number] Apply to [facility] Propionate 4-21 area(s) ity of 0.05 % 00:00: weekly. [place] shampoo 00 Medical Branch Clobetasol 2021-0 Yes [id number] Apply to [facility] Propionate 4-21 area(s) ity of 0.05 % 00:00: weekly. [place] shampoo 00 Medical Branch Clobetasol 2022-0 Yes [id number] Apply to [facility] Propionate 4-21 area(s) ity of 0.05 % 00:00: weekly. [place] shampoo 00 [facility] Branch Clobetasol 2021-0 Yes [id number] Apply to [facility] Propionate 4-21 area(s) ity of 0.05 % 00:00: weekly. [place] shampoo 00 [facility] Branch Clobetasol 2021-0 Yes [id number] Apply to [facility] Propionate 4-21 area(s) ity of 0.05 % 00:00: weekly. [place] shampoo 00 [facility] Branch Clobetasol 2021-0 Yes [id number] Apply to [facility] Propionate 4-21 area(s) ity of 0.05 % 00:00: weekly. [place] shampoo 00 [facility] Branch Clobetasol 2021-0 Yes [id number] Apply to [facility] Propionate 4-21 area(s) ity of 0.05 % 00:00: weekly. [place] shampoo 00 [facility] Branch Clobetasol 2021-0 Yes [id number] Apply to [facility] Propionate 4-21 area(s) ity of 0.05 % 00:00: weekly. [place] shampoo 00 [facility] Clobetasol 2021-0 Yes [id number] Apply to [facility] Propionate 4-21 area(s) ity of 0.05 % 00:00: weekly. [place] shampoo 00 [facility] Clobetasol 2021-0 Yes [id number] Apply to [facility] Propionate 4-21 area(s) ity of 0.05 % 00:00: weekly. [place] shampoo 00 [facility] Clobetasol 2-0 Yes [id number] Apply to [facility] Propionate 4-21 area(s) ity of 0.05 % 00:00: weekly. [place] shampoo 00 [facility] Clobetasol 2-0 Yes [id number] Apply to [facility] Propionate 4-21 area(s) ity of 0.05 % 00:00: weekly. [place] shampoo 00 [facility] Clobetasol 2-0 Yes [id number] Apply to [facility] Propionate 4-21 area(s) ity of 0.05 % 00:00: weekly. [place] shampoo 00 [facility] Branch Clobetasol 2-0 Yes [id number] Apply to [facility] Propionate 4-21 area(s) ity of 0.05 % 00:00: weekly. [place] shampoo 00 [facility] Branch Clobetasol 2022-0 Yes [id number] Apply to [facility] Propionate 4-21 area(s) ity of 0.05 % 00:00: weekly. [place] shampoo 00 [facility] Clobetasol 2-0 Yes [id number] Apply to [facility] Propionate 4-21 area(s) ity of 0.05 % 00:00: weekly. [place] shampoo 00 [facility] Clobetasol 2-0 Yes [id number] Apply to [facility] Propionate 4-21 area(s) ity of 0.05 % 00:00: weekly. [place] shampoo 00 [facility] Clobetasol 2-0 Yes [id number] Apply to [facility] Propionate 4-21 area(s) ity of 0.05 % 00:00: weekly. [place] shampoo 00 [facility] Clobetasol 2-0 Yes [id number] Apply to [facility] Propionate 4-21 area(s) ity of 0.05 % 00:00: weekly. [place] shampoo 00 [facility] Clobetasol 2-0 Yes [id number] Apply to [facility] Propionate 4-21 area(s) ity of 0.05 % 00:00: weekly. [place] shampoo 00 [facility] Clobetasol 2-0 Yes [id number] Apply to [facility] Propionate 4-21 area(s) ity of 0.05 % 00:00: weekly. [place] shampoo 00 [facility] Clobetasol 2-0 Yes [id number] Apply to [facility] Propionate 4-21 area(s) ity of 0.05 % 00:00: weekly. [place] shampoo 00 [facility] Clobetasol 2-0 Yes [id number] Apply to [facility] Propionate 4-21 area(s) ity of 0.05 % 00:00: weekly. [place] shampoo 00 [facility] Clobetasol 2022-0 Yes [id number] Apply to [facility] Propionate 4-21 area(s) ity of 0.05 % 00:00: weekly. [place] shampoo 00 [facility] Clobetasol 2-0 Yes [id number] Apply to [facility] Propionate 4-21 area(s) ity of 0.05 % 00:00: weekly. [place] shampoo 00 [facility] Clobetasol 2-0 Yes [id number] Apply to [facility] Propionate 4-21 area(s) ity of 0.05 % 00:00: weekly. [place] shampoo 00 [facility] Clobetasol 2-0 Yes [id number] Apply to [facility] Propionate 4-21 area(s) ity of 0.05 % 00:00: weekly. [place] [facility] 00 [facility] Clobetasol 2-0 Yes [id number] Apply to [facility] Propionate 4-21 area(s) ity of 0.05 % 00:00: weekly. [place] [facility] 00 [facility] Clobetasol 2-0 Yes [id number] Apply to [facility] Propionate 4-21 area(s) ity of 0.05 % 00:00: weekly. [place] [facility] 00 [facility] Clobetasol 2-0 Yes [id number] Apply to [facility] Propionate 4-21 area(s) ity of 0.05 % 00:00: weekly. [place] [facility] 00 [facility] Clobetasol 2-0 Yes [id number] Apply to [facility] Propionate 4-21 area(s) ity of 0.05 % 00:00: weekly. [place] [facility] 00 [facility] Clobetasol 2-0 Yes [id number] Apply to [facility] Propionate 4-21 area(s) ity of 0.05 % 00:00: weekly. [place] [facility] 00 [facility] Clobetasol 2-0 Yes [id number] Apply to [facility] Propionate 4-21 area(s) ity of 0.05 % 00:00: weekly. [place] [facility] 00 [facility] Clobetasol 2-0 Yes [id number] Apply to [facility] Propionate 4-21 area(s) ity of 0.05 % 00:00: weekly. [place] [facility] 00 [facility] Clobetasol 2-0 Yes [id number] Apply to [facility] Propionate 4-21 area(s) ity of 0.05 % 00:00: weekly. [place] [facility] 00 [facility] Clobetasol 2-0 Yes [id number] Apply to [facility] Propionate 4-21 area(s) ity of 0.05 % 00:00: weekly. [place] [facility] 00 [facility] Clobetasol 2-0 Yes [id number] Apply to [facility] Propionate 4-21 area(s) ity of 0.05 % 00:00: weekly. [place] [facility] 00 [facility] Clobetasol 2-0 Yes [id number] Apply to [facility] Propionate 4-21 area(s) ity of 0.05 % 00:00: weekly. [place] [facility] 00 [facility] Clobetasol 2-0 Yes [id number] Apply to [facility] Propionate 4-21 area(s) ity of 0.05 % 00:00: weekly. [place] [facility] 00 [facility] Clobetasol 2-0 Yes [id number] Apply to [facility] Propionate 4-21 area(s) ity of 0.05 % 00:00: weekly. [place] [facility] 00 [facility] Clobetasol 2-0 Yes [id number] Apply to [facility] Propionate 4-21 area(s) ity of 0.05 % 00:00: weekly. [place] [facility] 00 [facility] Clobetasol 2-0 Yes [id number] Apply to [facility] Propionate 4-21 area(s) ity of 0.05 % 00:00: weekly. [place] [facility] 00 [facility] Clobetasol 2-0 Yes [id number] Apply to [facility] Propionate 4-21 area(s) ity of 0.05 % 00:00: weekly. [place] [facility] 00 [facility] Clobetasol 2-0 Yes [id number] Apply to [facility] Propionate 4-21 area(s) ity of 0.05 % 00:00: weekly. [place] [facility] 00 [facility] Clobetasol 2-0 Yes [id number] Apply to [facility] Propionate 4-21 area(s) ity of 0.05 % 00:00: weekly. [place] [facility] 00 [facility] Clobetasol 2-0 Yes [id number] Apply to [facility] Propionate 4-21 area(s) ity of 0.05 % 00:00: weekly. [place] [facility] 00 [facility] Clobetasol 2-0 Yes [id number] Apply to [facility] Propionate 4-21 area(s) ity of 0.05 % 00:00: weekly. [place] [facility] 00 [facility] Clobetasol 2-0 Yes [id number] Apply to [facility] Propionate 4-21 area(s) ity of 0.05 % 00:00: weekly. [place] [facility] 00 [facility] Clobetasol 2-0 Yes [id number] Apply to [facility] Propionate 4-21 area(s) ity of 0.05 % 00:00: weekly. [place] [facility] 00 [facility] Clobetasol 2-0 Yes [id number] Apply to [facility] Propionate 4-21 area(s) ity of 0.05 % 00:00: weekly. [place] [facility] 00 [facility] Clobetasol 2-0 Yes [id number] Apply to [facility] Propionate 4-21 area(s) ity of 0.05 % 00:00: weekly. [place] [facility] 00 [facility] Clobetasol 2-0 Yes [id number] Apply to [facility] Propionate 4-21 area(s) ity of 0.05 % 00:00: weekly. [place] [facility] 00 [facility] Clobetasol 2-0 Yes [id number] Apply to [facility] Propionate 4-21 area(s) ity of 0.05 % 00:00: weekly. [place] [facility] 00 [facility] Clobetasol 2-0 Yes [id number] Apply to [facility] Propionate 4-21 area(s) ity of 0.05 % 00:00: weekly. [place] [facility] 00 [facility] Clobetasol 2-0 Yes [id number] Apply to [facility] Propionate 4-21 area(s) ity of 0.05 % 00:00: weekly. [place] [facility] 00 [facility] Clobetasol 2-0 Yes [id number] Apply to [facility] Propionate 4-21 area(s) ity of 0.05 % 00:00: weekly. [place] [facility] 00 [facility] Clobetasol 2-0 Yes [id number] Apply to [facility] Propionate 4-21 area(s) ity of 0.05 % 00:00: weekly. [place] shampoo 00 [facility] Clobetasol 2-0 Yes [id number] Apply to [facility] Propionate 4-21 area(s) ity of 0.05 % 00:00: weekly. [place] shampoo 00 [facility] Clobetasol 2-0 Yes [id number] Apply to [facility] Propionate 4-21 area(s) ity of 0.05 % 00:00: weekly. [place] shampoo 00 [facility] Clobetasol 2-0 Yes [id number] Apply to [facility] Propionate 4-21 area(s) ity of 0.05 % 00:00: weekly. [place] shampoo 00 [facility] Clobetasol 2-0 Yes [id number] Apply to [facility] Propionate 4-21 area(s) ity of 0.05 % 00:00: weekly. [place] shampoo 00 [facility] Clobetasol 2-0 Yes [id number] Apply to [facility] Propionate 4-21 area(s) ity of 0.05 % 00:00: weekly. [place] shampoo 00 [facility] Clobetasol 2-0 Yes [id number] Apply to [facility] Propionate 4-21 area(s) ity of 0.05 % 00:00: weekly. [place] shampoo 00 [facility] Clobetasol 2-0 Yes [id number] Apply to [facility] Propionate 4-21 area(s) ity of 0.05 % 00:00: weekly. [place] shampoo 00 [facility] Clobetasol 2-0 Yes [id number] Apply to [facility] Propionate 4-21 area(s) ity of 0.05 % 00:00: weekly. [place] shampoo 00 [facility] Clobetasol 2-0 Yes [id number] Apply to [facility] Propionate 4-21 area(s) ity of 0.05 % 00:00: weekly. [place] shampoo 00 [facility] Clobetasol 2-0 Yes [id number] Apply to [facility] Propionate 4-21 area(s) ity of 0.05 % 00:00: weekly. [place] shampoo 00 [facility] Clobetasol 2-0 Yes [id number] Apply to [facility] Propionate 4-21 area(s) ity of 0.05 % 00:00: weekly. [place] shampoo 00 [facility] Clobetasol 2-0 Yes [id number] Apply to [facility] Propionate 4-21 area(s) ity of 0.05 % 00:00: weekly. [place] shampoo 00 [facility] Clobetasol 2-0 Yes [id number] Apply to [facility] Propionate 4-21 area(s) ity of 0.05 % 00:00: weekly. [place] shampoo 00 [facility] Clobetasol 2-0 Yes [id number] Apply to [facility] Propionate 4-21 area(s) ity of 0.05 % 00:00: weekly. [place] shampoo 00 [facility] Clobetasol 2-0 Yes [id number] Apply to [facility] Propionate 4-21 area(s) ity of 0.05 % 00:00: weekly. [place] shampoo 00 [facility] Clobetasol 2-0 Yes [id number] Apply to [facility] Propionate 4-21 area(s) ity of 0.05 % 00:00: weekly. [place] shampoo 00 [facility] Clobetasol 2-0 Yes [id number] Apply to [facility] Propionate 4-21 area(s) ity of 0.05 % 00:00: weekly. [place] shampoo 00 [facility] Clobetasol 2-0 Yes [id number] Apply to [facility] Propionate 4-21 area(s) ity of 0.05 % 00:00: weekly. [place] shampoo 00 [facility] Clobetasol 2-0 Yes [id number] Apply to [facility] Propionate 4-21 area(s) ity of 0.05 % 00:00: weekly. [place] shampoo 00 [facility] Clobetasol 2-0 Yes [id number] Apply to [facility] Propionate 4-21 area(s) ity of 0.05 % 00:00: weekly. [place] shampoo 00 [facility] Clobetasol 2-0 Yes [id number] Apply to [facility] Propionate 4-21 area(s) ity of 0.05 % 00:00: weekly. [place] shampoo 00 [facility] Clobetasol 2-0 Yes [id number] Apply to [facility] Propionate 4-21 area(s) ity of 0.05 % 00:00: weekly. [place] shampoo 00 [facility] Clobetasol 2-0 Yes [id number] Apply to [facility] Propionate 4-21 area(s) ity of 0.05 % 00:00: weekly. [place] shampoo 00 [facility] Clobetasol 2022-0 Yes [id number] Apply to [facility] Propionate 4-21 area(s) ity of 0.05 % 00:00: weekly. [place] shampoo 00 [facility] Clobetasol 2-0 Yes [id number] Apply to [facility] Propionate 4-21 area(s) ity of 0.05 % 00:00: weekly. [place] shampoo 00 [facility] Clobetasol 2-0 Yes [id number] Apply to [facility] Propionate 4-21 area(s) ity of 0.05 % 00:00: weekly. [place] shampoo 00 [facility] Clobetasol 2-0 Yes [id number] Apply to [facility] Propionate 4-21 area(s) ity of 0.05 % 00:00: weekly. [place] shampoo 00 [facility] Clobetasol 2-0 Yes [id number] Apply to [facility] Propionate 4-21 area(s) ity of 0.05 % 00:00: weekly. [place] shampoo 00 [facility] Clobetasol 2-0 Yes [id number] Apply to [facility] Propionate 4-21 area(s) ity of 0.05 % 00:00: weekly. [place] shampoo 00 [facility] Clobetasol 2-0 Yes [id number] Apply to [facility] Propionate 4-21 area(s) ity of 0.05 % 00:00: weekly. [place] shampoo 00 [facility] Clobetasol 2-0 Yes [id number] Apply to [facility] Propionate 4-21 area(s) ity of 0.05 % 00:00: weekly. [place] shampoo 00 [facility] Clobetasol 2-0 Yes [id number] Apply to [facility] Propionate 4-21 area(s) ity of 0.05 % 00:00: weekly. [place] shampoo 00 [facility] Clobetasol 2-0 Yes [id number] Apply to [facility] Propionate 4-21 area(s) ity of 0.05 % 00:00: weekly. [place] shampoo 00 [facility] Clobetasol 2-0 Yes [id number] Apply to [facility] Propionate 4-21 area(s) ity of 0.05 % 00:00: weekly. [place] shampoo 00 [facility] Clobetasol 2-0 Yes [id number] Apply to [facility] Propionate 4-21 area(s) ity of 0.05 % 00:00: weekly. [place] shampoo 00 [facility] Clobetasol 2-0 Yes [id number] Apply to [facility] Propionate 4-21 area(s) ity of 0.05 % 00:00: weekly. [place] shampoo 00 [facility] Clobetasol 2-0 Yes [id number] Apply to [facility] Propionate 4-21 area(s) ity of 0.05 % 00:00: weekly. [place] shampoo 00 [facility] Clobetasol 2-0 Yes [id number] Apply to [facility] Propionate 4-21 area(s) ity of 0.05 % 00:00: weekly. [place] shampoo 00 [facility] Clobetasol 2-0 Yes [id number] Apply to [facility] Propionate 4-21 area(s) ity of 0.05 % 00:00: weekly. [place] shampoo 00 [facility] Clobetasol 2021-0 Yes [id number] Apply to [facility] Propionate 4-21 area(s) ity of 0.05 % 00:00: weekly. [place] shampoo 00 [facility] Clobetasol 2021-0 Yes [id number] Apply to [facility] Propionate 4-21 area(s) ity of 0.05 % 00:00: weekly. [place] shampoo 00 [facility] Clobetasol 2-0 Yes [id number] Apply to [facility] Propionate 4-21 area(s) ity of 0.05 % 00:00: weekly. [place] shampoo 00 [facility] Clobetasol 2-0 Yes [id number] Apply to [facility] Propionate 4-21 area(s) ity of 0.05 % 00:00: weekly. [place] shampoo 00 [facility] Clobetasol 2-0 Yes [id number] Apply to [facility] Propionate 4-21 area(s) ity of 0.05 % 00:00: weekly. [place] shampoo 00 [facility] Clobetasol 2-0 Yes [id number] Apply to [facility] Propionate 4-21 area(s) ity of 0.05 % 00:00: weekly. [place] shampoo 00 [facility] Clobetasol 2-0 Yes [id number] Apply to [facility] Propionate 4-21 area(s) ity of 0.05 % 00:00: weekly. [place] shampoo 00 [facility] Clobetasol 2-0 Yes [id number] Apply to [facility] Propionate 4-21 area(s) ity of 0.05 % 00:00: weekly. [place] shampoo 00 [facility] Clobetasol 2-0 Yes [id number] Apply to [facility] Propionate 4-21 area(s) ity of 0.05 % 00:00: weekly. [place] shampoo 00 [facility] Clobetasol 2-0 Yes [id number] Apply to [facility] Propionate 4-21 area(s) ity of 0.05 % 00:00: weekly. [place] shampoo 00 [facility] Clobetasol 2-0 Yes [id number] Apply to [facility] Propionate 4-21 area(s) ity of 0.05 % 00:00: weekly. [place] shampoo 00 [facility] Clobetasol 2-0 Yes [id number] Apply to [facility] Propionate 4-21 area(s) ity of 0.05 % 00:00: weekly. [place] shampoo 00 [facility] Clobetasol 2-0 Yes [id number] Apply to [facility] Propionate 4-21 area(s) ity of 0.05 % 00:00: weekly. [place] shampoo 00 [facility] Clobetasol 2-0 Yes [id number] Apply to [facility] Propionate 4-21 area(s) ity of 0.05 % 00:00: weekly. [place] shampoo 00 [facility] Clobetasol 2-0 Yes [id number] Apply to [facility] Propionate 4-21 area(s) ity of 0.05 % 00:00: weekly. [place] shampoo 00 [facility] Clobetasol 2-0 Yes [id number] Apply to [facility] Propionate 4-21 area(s) ity of 0.05 % 00:00: weekly. [place] shampoo 00 [facility] clobetasoL 2-0 Yes [id number] Apply to [facility] 0.05 % 4-14 area(s) 2 ity of external 00:00: (two) [place] solution 00 times Medical daily. Branch doxycycline 2-0 Yes [id number] 100mg Take 1 [facility] monohydrate 4-14 capsule by it y of 100 mg 00:00: mouth 2 [place] capsule 00 (two) Medical times Branch daily. clobetasoL 2-0 Yes [id number] Apply to [facility] 0.05 % 4-14 area(s) 2 ity of external 00:00: (two) [place] solution 00 times Medical daily. Branch doxycycline 2-0 Yes [id number] 100mg Take 1 [facility] monohydrate 4-14 capsule by it y of 100 mg 00:00: mouth 2 [place] capsule 00 (two) Medical times Branch daily. clobetasoL 2022-0 Yes [id number] Apply to [facility] 0.05 % 4-14 area(s) 2 ity of external 00:00: (two) [place] solution 00 times Medical daily. Branch doxycycline 2022-0 Yes [id number] 100mg Take 1 [facility] monohydrate 4-14 capsule by it y of 100 mg 00:00: mouth 2 [place] capsule 00 (two) Medical times Branch daily. clobetasoL 2022-0 Yes [id number] Apply to [facility] 0.05 % 4-14 area(s) 2 ity of external 00:00: (two) [place] solution 00 times Medical daily. Branch doxycycline 2-0 Yes [id number] 100mg Take 1 [facility] monohydrate 4-14 capsule by it y of 100 mg 00:00: mouth 2 [place] capsule 00 (two) Medical times Branch daily. clobetasoL 2022-0 Yes [id number] Apply to [facility] 0.05 % 4-14 area(s) 2 ity of external 00:00: (two) [place] solution 00 times Medical daily. Branch doxycycline 2-0 Yes [id number] 100mg Take 1 [facility] monohydrate 4-14 capsule by it y of 100 mg 00:00: mouth 2 [place] capsule 00 (two) Medical times Branch daily. clobetasoL 2022-0 Yes [id number] Apply to [facility] 0.05 % 4-14 area(s) 2 ity of external 00:00: (two) [place] solution 00 times Medical daily. Branch doxycycline 2022-0 Yes [id number] 100mg Take 1 [facility] monohydrate 4-14 capsule by it y of 100 mg 00:00: mouth 2 [place] capsule 00 (two) Medical times Branch daily. clobetasoL 2022-0 Yes [id number] Apply to [facility] 0.05 % 4-14 area(s) 2 ity of external 00:00: (two) [place] solution 00 times Medical daily. Branch doxycycline 2022-0 Yes [id number] 100mg Take 1 [facility] monohydrate 4-14 capsule by it y of 100 mg 00:00: mouth 2 [place] capsule 00 (two) Medical times Branch daily. clobetasoL 2022-0 Yes [id number] Apply to [facility] 0.05 % 4-14 area(s) 2 ity of external 00:00: (two) [place] solution 00 times Medical daily. Branch doxycycline 2022-0 Yes [id number] 100mg Take 1 [facility] monohydrate 4-14 capsule by it y of 100 mg 00:00: mouth 2 [place] capsule 00 (two) Medical times Branch daily. clobetasoL 2022-0 Yes [id number] Apply to [facility] 0.05 % 4-14 area(s) 2 ity of external 00:00: (two) [place] solution 00 times Medical daily. Branch doxycycline 2022-0 Yes [id number] 100mg Take 1 [facility] monohydrate 4-14 capsule by it y of 100 mg 00:00: mouth 2 [place] capsule 00 (two) Medical times Branch daily. clobetasoL 2022-0 Yes [id number] Apply to [facility] 0.05 % 4-14 area(s) 2 ity of external 00:00: (two) [place] solution 00 times Medical daily. Branch doxycycline 2-0 Yes [id number] 100mg Take 1 [facility] monohydrate 4-14 capsule by it y of 100 mg 00:00: mouth 2 [place] capsule 00 (two) Medical times Branch daily. clobetasoL 2022-0 Yes [id number] Apply to [facility] 0.05 % 4-14 area(s) 2 ity of external 00:00: (two) [place] solution 00 times Medical daily. Branch doxycycline 2022-0 Yes [id number] 100mg Take 1 [facility] monohydrate 4-14 capsule by it y of 100 mg 00:00: mouth 2 [place] capsule 00 (two) Medical times Branch daily. clobetasoL 2022-0 Yes [id number] Apply to [facility] 0.05 % 4-14 area(s) 2 ity of external 00:00: (two) [place] solution 00 times Medical daily. Branch doxycycline 2022-0 Yes [id number] 100mg Take 1 [facility] monohydrate 4-14 capsule by it y of 100 mg 00:00: mouth 2 [place] capsule 00 (two) Medical times Branch daily. clobetasoL 2022-0 Yes [id number] Apply to [facility] 0.05 % 4-14 area(s) 2 ity of external 00:00: (two) [place] solution 00 times Medical daily. Branch doxycycline 2022-0 Yes [id number] 100mg Take 1 [facility] monohydrate 4-14 capsule by it y of 100 mg 00:00: mouth 2 [place] capsule 00 (two) Medical times Branch daily. clobetasoL 2022-0 Yes [id number] Apply to [facility] 0.05 % 4-14 area(s) 2 ity of external 00:00: (two) [place] solution 00 times Medical daily. Branch doxycycline 2022-0 Yes [id number] 100mg Take 1 [facility] monohydrate 4-14 capsule by it y of 100 mg 00:00: mouth 2 [place] capsule 00 (two) Medical times Branch daily. clobetasoL 2022-0 Yes [id number] Apply to [facility] 0.05 % 4-14 area(s) 2 ity of external 00:00: (two) [place] solution 00 times Medical daily. Branch doxycycline 2-0 Yes [id number] 100mg Take 1 [facility] monohydrate 4-14 capsule by it y of 100 mg 00:00: mouth 2 [place] capsule 00 (two) Medical times Branch daily. clobetasoL 2022-0 Yes [id number] Apply to [facility] 0.05 % 4-14 area(s) 2 ity of external 00:00: (two) [place] solution 00 times Medical daily. Branch doxycycline 2-0 Yes [id number] 100mg Take 1 [facility] monohydrate 4-14 capsule by it y of 100 mg 00:00: mouth 2 [place] capsule 00 (two) Medical times Branch daily. clobetasoL 2022-0 Yes [id number] Apply to [facility] 0.05 % 4-14 area(s) 2 ity of external 00:00: (two) [place] solution 00 times Medical daily. Branch doxycycline 2022-0 Yes [id number] 100mg Take 1 [facility] monohydrate 4-14 capsule by it y of 100 mg 00:00: mouth 2 [place] capsule 00 (two) Medical times Branch daily. clobetasoL 2022-0 Yes [id number] Apply to [facility] 0.05 % 4-14 area(s) 2 ity of external 00:00: (two) [place] solution 00 times Medical daily. Branch doxycycline 2022-0 Yes [id number] 100mg Take 1 [facility] monohydrate 4-14 capsule by it y of 100 mg 00:00: mouth 2 [place] capsule 00 (two) Medical times Branch daily. clobetasoL 2022-0 Yes [id number] Apply to [facility] 0.05 % 4-14 area(s) 2 ity of external 00:00: (two) [place] solution 00 times Medical daily. Branch doxycycline 2-0 Yes [id number] 100mg Take 1 [facility] monohydrate 4-14 capsule by it y of 100 mg 00:00: mouth 2 [place] capsule 00 (two) Medical times Branch daily. clobetasoL 2022-0 Yes [id number] Apply to [facility] 0.05 % 4-14 area(s) 2 ity of external 00:00: (two) [place] solution 00 times Medical daily. Branch doxycycline 2022-0 Yes [id number] 100mg Take 1 [facility] monohydrate 4-14 capsule by it y of 100 mg 00:00: mouth 2 [place] capsule 00 (two) Medical times Branch daily. clobetasoL 2022-0 Yes [id number] Apply to [facility] 0.05 % 4-14 area(s) 2 ity of external 00:00: (two) [place] solution 00 times Medical daily. Branch doxycycline 2-0 Yes [id number] 100mg Take 1 [facility] monohydrate 4-14 capsule by it y of 100 mg 00:00: mouth 2 [place] capsule 00 (two) Medical times Branch daily. clobetasoL 2022-0 Yes [id number] Apply to [facility] 0.05 % 4-14 area(s) 2 ity of external 00:00: (two) [place] solution 00 times Medical daily. Branch doxycycline 2-0 Yes [id number] 100mg Take 1 [facility] monohydrate 4-14 capsule by it y of 100 mg 00:00: mouth 2 [place] capsule 00 (two) Medical times Branch daily. clobetasoL 2022-0 Yes [id number] Apply to [facility] 0.05 % 4-14 area(s) 2 ity of external 00:00: (two) [place] solution 00 times Medical daily. Branch doxycycline 2022-0 Yes [id number] 100mg Take 1 [facility] monohydrate 4-14 capsule by it y of 100 mg 00:00: mouth 2 [place] capsule 00 (two) Medical times Branch daily. clobetasoL 2022-0 Yes [id number] Apply to [facility] 0.05 % 4-14 area(s) 2 ity of external 00:00: (two) [place] solution 00 times Medical daily. Branch doxycycline 2022-0 Yes [id number] 100mg Take 1 [facility] monohydrate 4-14 capsule by it y of 100 mg 00:00: mouth 2 [place] capsule 00 (two) Medical times Branch daily. clobetasoL 2022-0 Yes [id number] Apply to [facility] 0.05 % 4-14 area(s) 2 ity of external 00:00: (two) [place] solution 00 times Medical daily. Branch doxycycline 2022-0 Yes [id number] 100mg Take 1 [facility] monohydrate 4-14 capsule by it y of 100 mg 00:00: mouth 2 [place] capsule 00 (two) Medical times Branch daily. clobetasoL 2022-0 Yes [id number] Apply to [facility] 0.05 % 4-14 area(s) 2 ity of external 00:00: (two) [place] solution 00 times Medical daily. Branch doxycycline 2-0 Yes [id number] 100mg Take 1 [facility] monohydrate 4-14 capsule by it y of 100 mg 00:00: mouth 2 [place] capsule 00 (two) Medical times Branch daily. clobetasoL 2022-0 Yes [id number] Apply to [facility] 0.05 % 4-14 area(s) 2 ity of external 00:00: (two) [place] solution 00 times Medical daily. Branch doxycycline 2-0 Yes [id number] 100mg Take 1 [facility] monohydrate 4-14 capsule by it y of 100 mg 00:00: mouth 2 [place] capsule 00 (two) Medical times Branch daily. clobetasoL 2022-0 Yes [id number] Apply to [facility] 0.05 % 4-14 area(s) 2 ity of external 00:00: (two) [place] solution 00 times Medical daily. Branch doxycycline 2022-0 Yes [id number] 100mg Take 1 [facility] monohydrate 4-14 capsule by it y of 100 mg 00:00: mouth 2 [place] capsule 00 (two) Medical times Branch daily. clobetasoL 2022-0 Yes [id number] Apply to [facility] 0.05 % 4-14 area(s) 2 ity of external 00:00: (two) [place] solution 00 times Medical daily. Branch doxycycline 2022-0 Yes [id number] 100mg Take 1 [facility] monohydrate 4-14 capsule by it y of 100 mg 00:00: mouth 2 [place] capsule 00 (two) Medical times Branch daily. clobetasoL 2022-0 Yes [id number] Apply to [facility] 0.05 % 4-14 area(s) 2 ity of external 00:00: (two) [place] solution 00 times Medical daily. Branch doxycycline 2022-0 Yes [id number] 100mg Take 1 [facility] monohydrate 4-14 capsule by it y of 100 mg 00:00: mouth 2 [place] capsule 00 (two) Medical times Branch daily. clobetasoL 2022-0 Yes [id number] Apply to [facility] 0.05 % 4-14 area(s) 2 ity of external 00:00: (two) [place] solution 00 times Medical daily. Branch doxycycline 2022-0 Yes [id number] 100mg Take 1 [facility] monohydrate 4-14 capsule by it y of 100 mg 00:00: mouth 2 [place] capsule 00 (two) Medical times Branch daily. clobetasoL 2022-0 Yes [id number] Apply to [facility] 0.05 % 4-14 area(s) 2 ity of external 00:00: (two) [place] solution 00 times Medical daily. Branch doxycycline 2-0 Yes [id number] 100mg Take 1 [facility] monohydrate 4-14 capsule by it y of 100 mg 00:00: mouth 2 [place] capsule 00 (two) Medical times Branch daily. clobetasoL 2022-0 Yes [id number] Apply to [facility] 0.05 % 4-14 area(s) 2 ity of external 00:00: (two) [place] solution 00 times Medical daily. Branch doxycycline 2-0 Yes [id number] 100mg Take 1 [facility] monohydrate 4-14 capsule by it y of 100 mg 00:00: mouth 2 [place] capsule 00 (two) Medical times Branch daily. clobetasoL 2022-0 Yes [id number] Apply to [facility] 0.05 % 4-14 area(s) 2 ity of external 00:00: (two) [place] solution 00 times Medical daily. Branch doxycycline 2022-0 Yes [id number] 100mg Take 1 [facility] monohydrate 4-14 capsule by it y of 100 mg 00:00: mouth 2 [place] capsule 00 (two) Medical times Branch daily. clobetasoL 2022-0 Yes [id number] Apply to [facility] 0.05 % 4-14 area(s) 2 ity of external 00:00: (two) [place] solution 00 times Medical daily. Branch doxycycline 2022-0 Yes [id number] 100mg Take 1 [facility] monohydrate 4-14 capsule by it y of 100 mg 00:00: mouth 2 [place] capsule 00 (two) Medical times Branch daily. clobetasoL 2022-0 Yes [id number] Apply to [facility] 0.05 % 4-14 area(s) 2 ity of external 00:00: (two) [place] solution 00 times Medical daily. Branch doxycycline 2022-0 Yes [id number] 100mg Take 1 [facility] monohydrate 4-14 capsule by it y of 100 mg 00:00: mouth 2 [place] capsule 00 (two) Medical times Branch daily. clobetasoL 2022-0 Yes [id number] Apply to [facility] 0.05 % 4-14 area(s) 2 ity of external 00:00: (two) [place] solution 00 times Medical daily. Branch doxycycline 2022-0 Yes [id number] 100mg Take 1 [facility] monohydrate 4-14 capsule by it y of 100 mg 00:00: mouth 2 [place] capsule 00 (two) Medical times Branch daily. clobetasoL 2022-0 Yes [id number] Apply to [facility] 0.05 % 4-14 area(s) 2 ity of external 00:00: (two) [place] solution 00 times Medical daily. Branch doxycycline 2022-0 Yes [id number] 100mg Take 1 [facility] monohydrate 4-14 capsule by it y of 100 mg 00:00: mouth 2 [place] capsule 00 (two) Medical times Branch daily. clobetasoL 2022-0 Yes [id number] Apply to [facility] 0.05 % 4-14 area(s) 2 ity of external 00:00: (two) [place] solution 00 times Medical daily. Branch doxycycline 2022-0 Yes [id number] 100mg Take 1 [facility] monohydrate 4-14 capsule by it y of 100 mg 00:00: mouth 2 [place] capsule 00 (two) Medical times Branch daily. clobetasoL 2022-0 Yes [id number] Apply to [facility] 0.05 % 4-14 area(s) 2 ity of external 00:00: (two) [place] solution 00 times Medical daily. Branch doxycycline 2022-0 Yes [id number] 100mg Take 1 [facility] monohydrate 4-14 capsule by it y of 100 mg 00:00: mouth 2 [place] capsule 00 (two) Medical times Branch daily. clobetasoL 2022-0 Yes [id number] Apply to [facility] 0.05 % 4-14 area(s) 2 ity of external 00:00: (two) [place] solution 00 times Medical daily. Branch doxycycline 2-0 Yes [id number] 100mg Take 1 [facility] monohydrate 4-14 capsule by it y of 100 mg 00:00: mouth 2 [place] capsule 00 (two) Medical times Branch daily. clobetasoL 2022-0 Yes [id number] Apply to [facility] 0.05 % 4-14 area(s) 2 ity of external 00:00: (two) [place] solution 00 times Medical daily. Branch doxycycline 2022-0 Yes [id number] 100mg Take 1 [facility] monohydrate 4-14 capsule by it y of 100 mg 00:00: mouth 2 [place] capsule 00 (two) Medical times Branch daily. clobetasoL 2022-0 Yes [id number] Apply to [facility] 0.05 % 4-14 area(s) 2 ity of external 00:00: (two) [place] solution 00 times Medical daily. Branch doxycycline 2-0 Yes [id number] 100mg Take 1 [facility] monohydrate 4-14 capsule by it y of 100 mg 00:00: mouth 2 [place] capsule 00 (two) Medical times Branch daily. clobetasoL 2022-0 Yes [id number] Apply to [facility] 0.05 % 4-14 area(s) 2 ity of external 00:00: (two) [place] solution 00 times Medical daily. Branch doxycycline 2022-0 Yes [id number] 100mg Take 1 [facility] monohydrate 4-14 capsule by it y of 100 mg 00:00: mouth 2 [place] capsule 00 (two) Medical times Branch daily. clobetasoL 2022-0 Yes [id number] Apply to [facility] 0.05 % 4-14 area(s) 2 ity of external 00:00: (two) [place] solution 00 times Medical daily. Branch doxycycline 2022-0 Yes [id number] 100mg Take 1 [facility] monohydrate 4-14 capsule by it y of 100 mg 00:00: mouth 2 [place] capsule 00 (two) Medical times Branch daily. clobetasoL 2022-0 Yes [id number] Apply to [facility] 0.05 % 4-14 area(s) 2 ity of external 00:00: (two) [place] solution 00 times Medical daily. Branch doxycycline 2022-0 Yes [id number] 100mg Take 1 [facility] monohydrate 4-14 capsule by it y of 100 mg 00:00: mouth 2 [place] capsule 00 (two) Medical times Branch daily. clobetasoL 2022-0 Yes [id number] Apply to [facility] 0.05 % 4-14 area(s) 2 ity of external 00:00: (two) [place] solution 00 times Medical daily. Branch doxycycline 2022-0 Yes [id number] 100mg Take 1 [facility] monohydrate 4-14 capsule by it y of 100 mg 00:00: mouth 2 [place] capsule 00 (two) Medical times Branch daily. clobetasoL 2022-0 Yes [id number] Apply to [facility] 0.05 % 4-14 area(s) 2 ity of external 00:00: (two) [place] solution 00 times Medical daily. Branch doxycycline 2-0 Yes [id number] 100mg Take 1 [facility] monohydrate 4-14 capsule by it y of 100 mg 00:00: mouth 2 [place] capsule 00 (two) Medical times Branch daily. clobetasoL 2022-0 Yes [id number] Apply to [facility] 0.05 % 4-14 area(s) 2 ity of external 00:00: (two) [place] solution 00 times Medical daily. Branch doxycycline 2-0 Yes [id number] 100mg Take 1 [facility] monohydrate 4-14 capsule by it y of 100 mg 00:00: mouth 2 [place] capsule 00 (two) Medical times Branch daily. clobetasoL 2022-0 Yes [id number] Apply to [facility] 0.05 % 4-14 area(s) 2 ity of external 00:00: (two) [place] solution 00 times Medical daily. Branch doxycycline 2022-0 Yes [id number] 100mg Take 1 [facility] monohydrate 4-14 capsule by it y of 100 mg 00:00: mouth 2 [place] capsule 00 (two) Medical times Branch daily. clobetasoL 2022-0 Yes [id number] Apply to [facility] 0.05 % 4-14 area(s) 2 ity of external 00:00: (two) [place] solution 00 times Medical daily. Branch doxycycline 2022-0 Yes [id number] 100mg Take 1 [facility] monohydrate 4-14 capsule by it y of 100 mg 00:00: mouth 2 [place] capsule 00 (two) Medical times Branch daily. clobetasoL 2022-0 Yes [id number] Apply to [facility] 0.05 % 4-14 area(s) 2 ity of external 00:00: (two) [place] solution 00 times Medical daily. Branch doxycycline 2022-0 Yes [id number] 100mg Take 1 [facility] monohydrate 4-14 capsule by it y of 100 mg 00:00: mouth 2 [place] capsule 00 (two) Medical times Branch daily. clobetasoL 2022-0 Yes [id number] Apply to [facility] 0.05 % 4-14 area(s) 2 ity of external 00:00: (two) [place] solution 00 times Medical daily. Branch doxycycline 2022-0 Yes [id number] 100mg Take 1 [facility] monohydrate 4-14 capsule by it y of 100 mg 00:00: mouth 2 [place] capsule 00 (two) Medical times Branch daily. clobetasoL 2022-0 Yes [id number] Apply to [facility] 0.05 % 4-14 area(s) 2 ity of external 00:00: (two) [place] solution 00 times Medical daily. Branch doxycycline 2-0 Yes [id number] 100mg Take 1 [facility] monohydrate 4-14 capsule by it y of 100 mg 00:00: mouth 2 [place] capsule 00 (two) Medical times Branch daily. clobetasoL 2022-0 Yes [id number] Apply to [facility] 0.05 % 4-14 area(s) 2 ity of external 00:00: (two) [place] solution 00 times Medical daily. Branch doxycycline 2022-0 Yes [id number] 100mg Take 1 [facility] monohydrate 4-14 capsule by it y of 100 mg 00:00: mouth 2 [place] capsule 00 (two) Medical times Branch daily. clobetasoL 2022-0 Yes [id number] Apply to [facility] 0.05 % 4-14 area(s) 2 ity of external 00:00: (two) [place] solution 00 times Medical daily. Branch doxycycline 2022-0 Yes [id number] 100mg Take 1 [facility] monohydrate 4-14 capsule by it y of 100 mg 00:00: mouth 2 [place] capsule 00 (two) Medical times Branch daily. clobetasoL 2022-0 Yes [id number] Apply to [facility] 0.05 % 4-14 area(s) 2 ity of external 00:00: (two) [place] solution 00 times Medical daily. Branch doxycycline 2-0 Yes [id number] 100mg Take 1 [facility] monohydrate 4-14 capsule by it y of 100 mg 00:00: mouth 2 [place] capsule 00 (two) Medical times Branch daily. clobetasoL 2022-0 Yes [id number] Apply to [facility] 0.05 % 4-14 area(s) 2 ity of external 00:00: (two) [place] solution 00 times Medical daily. Branch doxycycline 2-0 Yes [id number] 100mg Take 1 [facility] monohydrate 4-14 capsule by it y of 100 mg 00:00: mouth 2 [place] capsule 00 (two) Medical times Branch daily. clobetasoL 2022-0 Yes [id number] Apply to [facility] 0.05 % 4-14 area(s) 2 ity of external 00:00: (two) [place] solution 00 times Medical daily. Branch doxycycline 2021-0 Yes [id number] 100mg Take 1 [facility] monohydrate 4-14 capsule by it y of 100 mg 00:00: mouth 2 [place] capsule 00 (two) Medical times Branch daily. clobetasoL 2022-0 Yes [id number] Apply to [facility] 0.05 % 4-14 area(s) 2 ity of external 00:00: (two) [place] solution 00 times Medical daily. Branch doxycycline 2021-0 Yes [id number] 100mg Take 1 [facility] monohydrate 4-14 capsule by it y of 100 mg 00:00: mouth 2 [place] capsule 00 (two) Medical times Branch daily. clobetasoL 2022-0 Yes [id number] Apply to [facility] 0.05 % 4-14 area(s) 2 ity of external 00:00: (two) [place] solution 00 times Medical daily. Branch doxycycline 2-0 Yes [id number] 100mg Take 1 [facility] monohydrate 4-14 capsule by it y of 100 mg 00:00: mouth 2 [place] capsule 00 (two) Medical times Branch daily. clobetasoL 2022-0 Yes [id number] Apply to [facility] 0.05 % 4-14 area(s) 2 ity of external 00:00: (two) [place] solution 00 times Medical daily. Branch doxycycline 2022-0 Yes [id number] 100mg Take 1 [facility] monohydrate 4-14 capsule by it y of 100 mg 00:00: mouth 2 [place] capsule 00 (two) Medical times Branch daily. clobetasoL 2022-0 Yes [id number] Apply to [facility] 0.05 % 4-14 area(s) 2 ity of external 00:00: (two) [place] solution 00 times Medical daily. Branch clobetasoL 2022-0 Yes [id number] Apply to [facility] 0.05 % 4-14 area(s) 2 ity of external 00:00: (two) [place] solution 00 times Medical daily. Branch clobetasoL 2022-0 Yes [id number] Apply to [facility] 0.05 % 4-14 area(s) 2 ity of external 00:00: (two) [place] solution 00 times Medical daily. Branch clobetasoL 2022-0 Yes [id number] Apply to [facility] 0.05 % 4-14 area(s) 2 ity of external 00:00: (two) [place] solution 00 times Medical daily. Branch clobetasoL 2022-0 Yes [id number] Apply to [facility] 0.05 % 4-14 area(s) 2 ity of external 00:00: (two) [place] solution 00 times Medical daily. Branch clobetasoL 2022-0 Yes [id number] Apply to [facility] 0.05 % 4-14 area(s) 2 ity of external 00:00: (two) [place] solution 00 times Medical daily. Branch clobetasoL 2022-0 Yes [id number] Apply to [facility] 0.05 % 4-14 area(s) 2 ity of external 00:00: (two) [place] solution 00 times Medical daily. Branch clobetasoL 2022-0 Yes [id number] Apply to [facility] 0.05 % 4-14 area(s) 2 ity of external 00:00: (two) [place] solution 00 times Medical daily. Branch clobetasoL 2022-0 Yes [id number] Apply to [facility] 0.05 % 4-14 area(s) 2 ity of external 00:00: (two) [place] solution 00 times Medical daily. Branch clobetasoL 2022-0 Yes [id number] Apply to [facility] 0.05 % 4-14 area(s) 2 ity of external 00:00: (two) [place] solution 00 times Medical daily. Branch clobetasoL 2022-0 Yes [id number] Apply to [facility] 0.05 % 4-14 area(s) 2 ity of external 00:00: (two) [place] solution 00 times Medical daily. Branch clobetasoL 2022-0 Yes [id number] Apply to [facility] 0.05 % 4-14 area(s) 2 ity of external 00:00: (two) [place] solution 00 times Medical daily. Branch clobetasoL 2022-0 Yes [id number] Apply to [facility] 0.05 % 4-14 area(s) 2 ity of external 00:00: (two) [place] solution 00 times Medical daily. Branch clobetasoL 2022-0 Yes [id number] Apply to [facility] 0.05 % 4-14 area(s) 2 ity of external 00:00: (two) [place] solution 00 times Medical daily. Branch clobetasoL 2022-0 Yes [id number] Apply to [facility] 0.05 % 4-14 area(s) 2 ity of external 00:00: (two) [place] solution 00 times Medical daily. Branch clobetasoL 2022-0 Yes [id number] Apply to [facility] 0.05 % 4-14 area(s) 2 ity of external 00:00: (two) [place] solution 00 times Medical daily. Branch clobetasoL 2022-0 Yes [id number] Apply to [facility] 0.05 % 4-14 area(s) 2 ity of external 00:00: (two) [place] solution 00 times Medical daily. Branch clobetasoL 2022-0 Yes [id number] Apply to [facility] 0.05 % 4-14 area(s) 2 ity of external 00:00: (two) [place] solution 00 times Medical daily. Branch clobetasoL 2022-0 Yes [id number] Apply to [facility] 0.05 % 4-14 area(s) 2 ity of external 00:00: (two) [place] solution 00 times Medical daily. Branch clobetasoL 2022-0 Yes [id number] Apply to [facility] 0.05 % 4-14 area(s) 2 ity of external 00:00: (two) [place] solution 00 times Medical daily. Branch clobetasoL 2022-0 Yes [id number] Apply to [facility] 0.05 % 4-14 area(s) 2 ity of external 00:00: (two) [place] solution 00 times Medical daily. Branch clobetasoL 2022-0 Yes [id number] Apply to [facility] 0.05 % 4-14 area(s) 2 ity of external 00:00: (two) [place] solution 00 times Medical daily. Branch clobetasoL 2022-0 Yes [id number] Apply to [facility] 0.05 % 4-14 area(s) 2 ity of external 00:00: (two) [place] solution 00 times Medical daily. Branch clobetasoL 2022-0 Yes [id number] Apply to [facility] 0.05 % 4-14 area(s) 2 ity of external 00:00: (two) [place] solution 00 times Medical daily. Branch clobetasoL 2022-0 Yes [id number] Apply to [facility] 0.05 % 4-14 area(s) 2 ity of external 00:00: (two) [place] solution 00 times Medical daily. Branch clobetasoL 2022-0 Yes [id number] Apply to [facility] 0.05 % 4-14 area(s) 2 ity of external 00:00: (two) [place] solution 00 times Medical daily. Branch clobetasoL 2022-0 Yes [id number] Apply to [facility] 0.05 % 4-14 area(s) 2 ity of external 00:00: (two) [place] solution 00 times Medical daily. Branch clobetasoL 2022-0 Yes [id number] Apply to [facility] 0.05 % 4-14 area(s) 2 ity of external 00:00: (two) [place] solution 00 times Medical daily. Branch clobetasoL 2022-0 Yes [id number] Apply to [facility] 0.05 % 4-14 area(s) 2 ity of external 00:00: (two) [place] solution 00 times Medical daily. Branch clobetasoL 2022-0 Yes [id number] Apply to [facility] 0.05 % 4-14 area(s) 2 ity of external 00:00: (two) [place] solution 00 times Medical daily. Branch clobetasoL 2022-0 Yes [id number] Apply to [facility] 0.05 % 4-14 area(s) 2 ity of external 00:00: (two) [place] solution 00 times Medical daily. Branch clobetasoL 2022-0 Yes [id number] Apply to [facility] 0.05 % 4-14 area(s) 2 ity of external 00:00: (two) [place] solution 00 times Medical daily. Branch clobetasoL 2022-0 Yes [id number] Apply to [facility] 0.05 % 4-14 area(s) 2 ity of external 00:00: (two) [place] solution 00 times Medical daily. Branch clobetasoL 2022-0 Yes [id number] Apply to [facility] 0.05 % 4-14 area(s) 2 ity of external 00:00: (two) [place] solution 00 times Medical daily. Branch clobetasoL 2022-0 Yes [id number] Apply to [facility] 0.05 % 4-14 area(s) 2 ity of external 00:00: (two) [place] solution 00 times Medical daily. Branch clobetasoL 2022-0 Yes [id number] Apply to [facility] 0.05 % 4-14 area(s) 2 ity of external 00:00: (two) [place] solution 00 times Medical daily. Branch clobetasoL 2022-0 Yes [id number] Apply to [facility] 0.05 % 4-14 area(s) 2 ity of external 00:00: (two) [place] solution 00 times Medical daily. Branch clobetasoL 2022-0 Yes [id number] Apply to [facility] 0.05 % 4-14 area(s) 2 ity of external 00:00: (two) [place] solution 00 times Medical daily. Branch clobetasoL 2022-0 Yes [id number] Apply to [facility] 0.05 % 4-14 area(s) 2 ity of external 00:00: (two) [place] solution 00 times Medical daily. Branch clobetasoL 2022-0 Yes [id number] Apply to [facility] 0.05 % 4-14 area(s) 2 ity of external 00:00: (two) [place] solution 00 times Medical daily. Branch clobetasoL 2022-0 Yes [id number] Apply to [facility] 0.05 % 4-14 area(s) 2 ity of external 00:00: (two) [place] solution 00 times Medical daily. Branch clobetasoL 2022-0 Yes [id number] Apply to [facility] 0.05 % 4-14 area(s) 2 ity of external 00:00: (two) [place] solution 00 times Medical daily. Branch clobetasoL 2021-0 Yes [id number] Apply to [facility] 0.05 % 4-14 area(s) 2 ity of external 00:00: (two) [place] solution 00 times Medical daily. Branch clobetasoL 2-0 Yes [id number] Apply to [facility] 0.05 % 4-14 area(s) 2 ity of external 00:00: (two) [place] solution 00 times Medical daily. Branch clobetasoL 2021-0 Yes [id number] Apply to [facility] 0.05 % 4-14 area(s) 2 ity of external 00:00: (two) [place] solution 00 times Medical daily. Branch clobetasoL 2-0 Yes [id number] Apply to [facility] 0.05 % 4-14 area(s) 2 ity of external 00:00: (two) [place] solution 00 times Medical daily. Branch clobetasoL 2-0 Yes [id number] Apply to [facility] 0.05 % 4-14 area(s) 2 ity of external 00:00: (two) [place] solution 00 times Medical daily. Branch clobetasoL 2021-0 Yes [id number] Apply to [facility] 0.05 % 4-14 area(s) 2 ity of external 00:00: (two) [place] solution 00 times Medical daily. Branch clobetasoL 2-0 Yes [id number] Apply to [facility] 0.05 % 4-14 area(s) 2 ity of external 00:00: (two) [place] solution 00 times Medical daily. Branch clobetasoL 2-0 Yes [id number] Apply to [facility] 0.05 % 4-14 area(s) 2 ity of external 00:00: (two) [place] solution 00 times Medical daily. Branch doxycycline 3- No [id number] 100mg Take 1 [facility] monohydrate 4-14 -28 capsule by i ty of 100 mg 00:00: 00:00 mouth 2 [place] capsule 00 :00 (two) Medical times Branch daily. ROSUVASTATI 0 Yes [id number] TAKE 1 [facility] N 20 mg 4-04 TABLET BY ity of tablet 00:00: MOUTH AT [place] 00 BEDTIME, Medical STOP Branch TAKING ATORVASTAT IN ROSUVASTATI Yes [id number] TAKE 1 [facility] N 20 mg 4-04 TABLET BY ity of tablet 00:00: MOUTH AT [place] 00 BEDTIME, Medical STOP Branch TAKING ATORVASTAT IN ROSUVASTATI Yes [id number] TAKE 1 [facility] N 20 mg 4-04 TABLET BY ity of tablet 00:00: MOUTH AT [place] 00 BEDTIME, Medical STOP Branch TAKING ATORVASTAT IN ROSUVASTATI 0 2021- No [id number] TAKE 1 [facility] N 20 mg 4-04 08-21 TABLET BY ity of tablet 00:00: 00:00 MOUTH AT [place] 00 :00 BEDTIME, Medical STOP Branch TAKING ATORVASTAT IN ROSUVASTATI 2021-2021- No [id number] TAKE 1 [facility] N 20 mg 4-04 08-21 TABLET BY ity of tablet 00:00: 00:00 MOUTH AT [place] 00 :00 BEDTIME, Medical STOP Branch TAKING ATORVASTAT IN dapaglifloz Yes [id number] 10mg Take 1 [facility] in 3-30 tablet by ity of (FARXIGA) 00:00: mouth [place] 10 mg 00 daily. Medical tablet Branch Insulin Yes [id number] Use as [facility] ers [place], 3-30 directed ity of Disposable, 00:00: to inject [place] (PEN 00 insulin Medical NEEDLE) 31 once Branch gauge x daily; 08/27" Ndle ICD-10 code E11.65 dapaglifloz Yes [id number] 10mg Take 1 [facility] in 3-30 tablet by ity of (FARXIGA) 00:00: mouth [place] 10 mg 00 daily. Medical tablet Branch Insulin Yes [id number] Use as [facility] [place], 3-30 directed ity of Disposable, 00:00: to inject [place] (PEN 00 insulin Medical NEEDLE) 31 once Branch gauge x daily; 08/27" N[place] ICD-10 code E11.65 dapaglifloz Yes [id number] 10mg Take 1 [facility] in 3-30 tablet by ity of (FARXIGA) 00:00: mouth [place] 10 mg 00 daily. Medical tablet Branch Insulin Yes [id number] Use as [facility] [place], 3-30 directed ity of Disposable, 00:00: to inject [place] (PEN 00 insulin Medical NEEDLE) 31 once Branch gauge x daily; 08/27" N[place] ICD-10 code E11.65 dapaglifloz Yes [id number] 10mg Take 1 [facility] in 3-30 tablet by ity of (FARXIGA) 00:00: mouth [place] 10 mg 00 daily. Medical tablet Branch Insulin Yes [id number] Use as [facility] [place], 07-11 directed ity of Disposable, 00:00: to inject [place] (PEN 00 insulin Medical NEEDLE) 31 once Branch gauge x daily; 08/27" N[place] ICD-10 code E11.65 dapaglifloz Yes [id number] 10mg Take 1 [facility] in 3-30 tablet by ity of (FARXIGA) 00:00: mouth [place] 10 mg 00 daily. Medical tablet Branch Insulin Yes [id number] Use as [facility] [place], 07-11 directed ity of Disposable, 00:00: to inject [place] (PEN 00 insulin Medical NEEDLE) 31 once Branch gauge x daily; 08/27" N[place] ICD-10 code E11.65 dapaglifloz 2021- No [id number] 10mg Take 1 [facility] in -30 - tablet by ity of (FARXIGA) 00:00: 00:00 mouth [place] 10 mg 00 :00 daily. Medical tablet Branch Insulin 2021- No [id number] Use as [facility] vers [place], 07-11 directed ity of Disposable, 00:00: 00:00 to inject [place] (PEN 00 :00 insulin Medical NEEDLE) 31 once Branch gauge x daily; 08/27" [place] ICD-10 code E11.65 dapaglifloz 0 2021- No [id number] 10mg Take 1 [facility] in -30 -16 tablet by ity of (FARXIGA) 00:00: 00:00 mouth [place] 10 mg 00 :00 daily. Medical tablet Branch Insulin 2021- No [id number] Use as [facility] vers [place], 07-11 directed ity of Disposable, 00:00: 00:00 to inject [place] (PEN 00 :00 insulin Medical NEEDLE) 31 once Branch gauge x daily; 08/27" [place] ICD-10 code E11.65 blood sugar Yes [id number] Check U nivers diagnostic 3-25 glucose ity of (ACCU-CHEK 00:00: once daily [place] KWESI PLUS 00 before Medical TEST STRP) breakfast; Bra nch strip ICD-10 E11.65 coenzyme 0 Yes [id number] 100mg Take 1 [facility] nivers Q10 3-25 capsule by ity of (COQ-10) 00:00: mouth [place] 100 mg 00 daily. Medical softgel Branch Insulin Yes [id number] Use as [facility] [place], 3-25 directed ity of Disposable, 00:00: once daily [place] (RELION PEN 00 to inject Med ical NEEDLES) 32 insulin; Bran ch gauge x E11.65 " Ndle RESTASIS 0 Yes [facility] 0.05 % 3-25 ity of ophthalmic 00:00: [place] drops 00 Medical Branch blood sugar Yes [id number] Check U nivers diagnostic 3-25 glucose ity of (ACCU-CHEK 00:00: once daily [place] KWESI PLUS 00 before Medical TEST STRP) breakfast; Bra nch strip ICD-10 E11.65 coenzyme Yes [id number] 100mg Take 1 U nivers Q10 3-25 capsule by ity of (COQ-10) 00:00: mouth [place] 100 mg 00 daily. Medical softgel Branch Insulin Yes [id number] Use as [facility] [place], 3-25 directed ity of Disposable, 00:00: once daily [place] (RELION PEN 00 to inject Med ical NEEDLES) 32 insulin; Bran ch gauge x E11.65 " Ndle RESTASIS 0 Yes [facility] 0.05 % 3-25 ity of ophthalmic 00:00: [place] drops 00 Medical Branch blood sugar 0 Yes [id number] Check U nivers diagnostic 3-25 glucose ity of (ACCU-CHEK 00:00: once daily [place] KWESI PLUS 00 before Medical TEST STRP) breakfast; Bra nch strip ICD-10 E11.65 coenzyme 0 Yes [id number] 100mg Take 1 U nivers Q10 3-25 capsule by ity of (COQ-10) 00:00: mouth [place] 100 mg 00 daily. Medical softgel Branch Insulin Yes [id number] Use as [facility] [place], 3-25 directed ity of Disposable, 00:00: once daily [place] (RELION PEN 00 to inject Med ical NEEDLES) 32 insulin; Bran ch gauge x E11.65 5/32" Ndle RESTASIS 2021-0 Yes [facility] 0.05 % 3-25 ity of ophthalmic 00:00: [place] drops 00 Medical Branch blood sugar 0 Yes [id number] Check U nivers diagnostic 3-25 glucose ity of (ACCU-CHEK 00:00: once daily [place] KWESI PLUS 00 before Medical TEST STRP) breakfast; Bra nch strip ICD-10 E11.65 coenzyme 0 Yes [id number] 100mg Take 1 U nivers Q10 3-25 capsule by ity of (COQ-10) 00:00: mouth [place] 100 mg 00 daily. Medical softgel Branch Insulin 0 Yes [id number] Use as [facility] [place], 3-25 directed ity of Disposable, 00:00: once daily [place] (RELION PEN 00 to inject Med ical NEEDLES) 32 insulin; Bran ch gauge x E11.65 532" Ndle RESTASIS 0 Yes [facility] 0.05 % 3-25 ity of ophthalmic 00:00: [place] drops 00 Medical Branch blood sugar 0 Yes [id number] Check U nivers diagnostic 3-25 glucose ity of (ACCU-CHEK 00:00: once daily [place] KWESI PLUS 00 before Medical TEST STRP) breakfast; Bra nch strip ICD-10 E11.65 coenzyme 0 Yes [id number] 100mg Take 1 U nivers Q10 3-25 capsule by ity of (COQ-10) 00:00: mouth [place] 100 mg 00 daily. Medical softgel Branch Insulin 0 Yes [id number] Use as [facility] [place], 3-25 directed ity of Disposable, 00:00: once daily [place] (RELION PEN 00 to inject Med ical NEEDLES) 32 insulin; Bran ch gauge x E11.65 5/32" Ndle RESTASIS 0 Yes [facility] 0.05 % 3-25 ity of ophthalmic 00:00: [place] drops 00 Medical Branch blood sugar 0 Yes [id number] Check U nivers diagnostic 3-25 glucose ity of (ACCU-CHEK 00:00: once daily [place] KWESI PLUS 00 before Medical TEST STRP) breakfast; Bra nch strip ICD-10 E11.65 coenzyme 0 Yes [id number] 100mg Take 1 U nivers Q10 3-25 capsule by ity of (COQ-10) 00:00: mouth [place] 100 mg 00 daily. Medical softgel Branch Insulin Yes [id number] Use as [facility] [place], 3-25 directed ity of Disposable, 00:00: once daily [place] (RELION PEN 00 to inject Med ical NEEDLES) 32 insulin; Bran ch gauge x E11.65 5/32" Ndle RESTASIS 0 Yes [facility] 0.05 % 3-25 ity of ophthalmic 00:00: [place] drops 00 Medical Branch blood sugar Yes [id number] Check U nivers diagnostic 3-25 glucose ity of (ACCU-CHEK 00:00: once daily [place] KWESI PLUS 00 before Medical TEST STRP) breakfast; Bra nch strip ICD-10 E11.65 coenzyme Yes [id number] 100mg Take 1 U nivers Q10 3-25 capsule by ity of (COQ-10) 00:00: mouth [place] 100 mg 00 daily. Medical softgel Branch Insulin Yes [id number] Use as [facility] [place], 3-25 directed ity of Disposable, 00:00: once daily [place] (RELION PEN 00 to inject Med ical NEEDLES) 32 insulin; Bran ch gauge x E11.65 " Ndle RESTASIS 0 Yes [facility] 0.05 % 3-25 ity of ophthalmic 00:00: [place] drops 00 Medical Branch blood sugar 0 Yes [id number] Check U nivers diagnostic 3-25 glucose ity of (ACCU-CHEK 00:00: once daily [place] KWESI PLUS 00 before Medical TEST STRP) breakfast; Bra nch strip ICD-10 E11.65 coenzyme 0 Yes [id number] 100mg Take 1 U nivers Q10 3-25 capsule by ity of (COQ-10) 00:00: mouth [place] 100 mg 00 daily. Medical softgel Branch Insulin Yes [id number] Use as [facility] [place], 3-25 directed ity of Disposable, 00:00: once daily [place] (RELION PEN 00 to inject Med ical NEEDLES) 32 insulin; Bran ch gauge x E11.65 532" Ndle RESTASIS 2022-0 Yes [facility] 0.05 % 3-25 ity of ophthalmic 00:00: [place] drops 00 Medical Branch blood sugar Yes [id number] Check U nivers diagnostic 3-25 glucose ity of (ACCU-CHEK 00:00: once daily [place] KWESI PLUS 00 before Medical TEST STRP) breakfast; Bra nch strip ICD-10 E11.65 coenzyme 0 Yes [id number] 100mg Take 1 U nivers Q10 3-25 capsule by ity of (COQ-10) 00:00: mouth [place] 100 mg 00 daily. Medical softgel Branch Insulin Yes [id number] Use as [facility] [place], 3-25 directed ity of Disposable, 00:00: once daily [place] (RELION PEN 00 to inject Med ical NEEDLES) 32 insulin; Bran ch gauge x E11.65 " Ndle RESTASIS Yes [facility] 0.05 % 3-25 ity of ophthalmic 00:00: [place] drops Medical Branch blood sugar Yes [id number] Check U nivers diagnostic 3-25 glucose ity of (ACCU-CHEK 00:00: once daily [place] KWESI PLUS 00 before Medical TEST STRP) breakfast; Bra nch strip ICD-10 E11.65 coenzyme 0 Yes [id number] 100mg Take 1 U nivers Q10 3-25 capsule by ity of (COQ-10) 00:00: mouth [place] 100 mg 00 daily. Medical softgel Branch Insulin Yes [id number] Use as [facility] [place], 3-25 directed ity of Disposable, 00:00: once daily [place] (RELION PEN 00 to inject Med ical NEEDLES) 32 insulin; Bran ch gauge x E11.65 " Ndle RESTASIS 0 Yes [facility] 0.05 % 3-25 ity of ophthalmic 00:00: [place] drops 00 Medical Branch blood sugar Yes [id number] Check U nivers diagnostic 3-25 glucose ity of (ACCU-CHEK 00:00: once daily [place] KWESI PLUS 00 before Medical TEST STRP) breakfast; Bra nch strip ICD-10 E11.65 coenzyme 0 Yes [id number] 100mg Take 1 U nivers Q10 3-25 capsule by ity of (COQ-10) 00:00: mouth [place] 100 mg 00 daily. Medical softgel Branch Insulin 0 Yes [id number] Use as [facility] [place], 3-25 directed ity of Disposable, 00:00: once daily [place] (RELION PEN 00 to inject Med ical NEEDLES) 32 insulin; Bran ch gauge x E11.65 5/32" Ndle RESTASIS 0 Yes [facility] 0.05 % 3-25 ity of ophthalmic 00:00: [place] drops 00 Medical Branch blood sugar 0 Yes [id number] Check U nivers diagnostic 3-25 glucose ity of (ACCU-CHEK 00:00: once daily [place] KWESI PLUS 00 before Medical TEST STRP) breakfast; Bra nch strip ICD-10 E11.65 coenzyme 0 Yes [id number] 100mg Take 1 U nivers Q10 3-25 capsule by ity of (COQ-10) 00:00: mouth [place] 100 mg 00 daily. Medical softgel Branch Insulin Yes [id number] Use as [facility] [place], 3-25 directed ity of Disposable, 00:00: once daily [place] (RELION PEN 00 to inject Med ical NEEDLES) 32 insulin; Bran ch gauge x E11.65 32" Ndle RESTASIS 0 Yes [facility] 0.05 % 3-25 ity of ophthalmic 00:00: [place] drops 00 Medical Branch blood sugar 0 Yes [id number] Check U nivers diagnostic 3-25 glucose ity of (ACCU-CHEK 00:00: once daily [place] KWESI PLUS 00 before Medical TEST STRP) breakfast; Bra nch strip ICD-10 E11.65 coenzyme 0 Yes [id number] 100mg Take 1 U nivers Q10 3-25 capsule by ity of (COQ-10) 00:00: mouth [place] 100 mg 00 daily. Medical softgel Branch Insulin Yes [id number] Use as [facility] [place], 3-25 directed ity of Disposable, 00:00: once daily [place] (RELION PEN 00 to inject Med ical NEEDLES) 32 insulin; Bran ch gauge x E11.65 5/32" Ndle RESTASIS 0 Yes [facility] 0.05 % 3-25 ity of ophthalmic 00:00: [place] drops 00 Medical Branch blood sugar 0 Yes [id number] Check U nivers diagnostic 3-25 glucose ity of (ACCU-CHEK 00:00: once daily [place] KWESI PLUS 00 before Medical TEST STRP) breakfast; Bra nch strip ICD-10 E11.65 coenzyme 0 Yes [id number] 100mg Take 1 U nivers Q10 3-25 capsule by ity of (COQ-10) 00:00: mouth [place] 100 mg 00 daily. Medical softgel Branch Insulin Yes [id number] Use as [facility] [place], 3-25 directed ity of Disposable, 00:00: once daily [place] (RELION PEN 00 to inject Med ical NEEDLES) 32 insulin; Bran ch gauge x E11.65 " Ndle RESTASIS Yes [facility] 0.05 % 3-25 ity of ophthalmic 00:00: [place] drops 00 Medical Branch blood sugar Yes [id number] Check U nivers diagnostic 3-25 glucose ity of (ACCU-CHEK 00:00: once daily [place] KWESI PLUS 00 before Medical TEST STRP) breakfast; Bra nch strip ICD-10 E11.65 coenzyme Yes [id number] 100mg Take 1 U nivers Q10 3-25 capsule by ity of (COQ-10) 00:00: mouth [place] 100 mg 00 daily. Medical softgel Branch Insulin Yes [id number] Use as [facility] [place], 3-25 directed ity of Disposable, 00:00: once daily [place] (RELION PEN 00 to inject Med ical NEEDLES) 32 insulin; Bran ch gauge x E11.65 " Ndle RESTASIS 0 Yes [facility] 0.05 % 3-25 ity of ophthalmic 00:00: [place] drops 00 Medical Branch blood sugar Yes [id number] Check U nivers diagnostic 3-25 glucose ity of (ACCU-CHEK 00:00: once daily [place] KWESI PLUS 00 before Medical TEST STRP) breakfast; Bra nch strip ICD-10 E11.65 coenzyme 0 Yes [id number] 100mg Take 1 U nivers Q10 3-25 capsule by ity of (COQ-10) 00:00: mouth [place] 100 mg 00 daily. Medical softgel Branch Insulin Yes [id number] Use as [facility] [place], 3-25 directed ity of Disposable, 00:00: once daily [place] (RELION PEN 00 to inject Med ical NEEDLES) 32 insulin; Bran ch gauge x E11.65 5/32" Ndle RESTASIS 0 Yes [facility] 0.05 % 3-25 ity of ophthalmic 00:00: [place] drops 00 Medical Branch blood sugar 0 Yes [id number] Check U nivers diagnostic 3-25 glucose ity of (ACCU-CHEK 00:00: once daily [place] KWESI PLUS 00 before Medical TEST STRP) breakfast; Bra nch strip ICD-10 E11.65 coenzyme 0 Yes [id number] 100mg Take 1 U nivers Q10 3-25 capsule by ity of (COQ-10) 00:00: mouth [place] 100 mg 00 daily. Medical softgel Branch Insulin 0 Yes [id number] Use as [facility] [place], 3-25 directed ity of Disposable, 00:00: once daily [place] (RELION PEN 00 to inject Med ical NEEDLES) 32 insulin; Bran ch gauge x E11.65 532" Ndle RESTASIS 0 Yes [facility] 0.05 % 3-25 ity of ophthalmic 00:00: [place] drops 00 Medical Branch blood sugar 0 Yes [id number] Check U nivers diagnostic 3-25 glucose ity of (ACCU-CHEK 00:00: once daily [place] KWESI PLUS 00 before Medical TEST STRP) breakfast; Bra nch strip ICD-10 E11.65 coenzyme 0 Yes [id number] 100mg Take 1 U nivers Q10 3-25 capsule by ity of (COQ-10) 00:00: mouth [place] 100 mg 00 daily. Medical softgel Branch Insulin 0 Yes [id number] Use as [facility] [place], 3-25 directed ity of Disposable, 00:00: once daily [place] (RELION PEN 00 to inject Med ical NEEDLES) 32 insulin; Bran ch gauge x E11.65 5/32" Ndle RESTASIS 0 Yes [facility] 0.05 % 3-25 ity of ophthalmic 00:00: [place] drops 00 Medical Branch blood sugar 0 Yes [id number] Check U nivers diagnostic 3-25 glucose ity of (ACCU-CHEK 00:00: once daily [place] KWESI PLUS 00 before Medical TEST STRP) breakfast; Bra nch strip ICD-10 E11.65 coenzyme 0 Yes [id number] 100mg Take 1 [facility] Q10 3-25 capsule by ity of (COQ-10) 00:00: mouth [place] 100 mg 00 daily. Medical softgel Branch Insulin Yes [id number] [facility] [place], 3-25 directed ity of Disposable, 00:00: once daily [place] (RELION PEN 00 to inject Med ical NEEDLES) 32 insulin; Bran ch gauge x E11.65 32" Ndle RESTASIS 0 Yes [facility] 0.05 % 3-25 ity of ophthalmic 00:00: [place] drops 00 [facility] blood sugar Yes [id number] Check [facility] nivers diagnostic 3-25 glucose ity of (ACCU-CHEK 00:00: [place] daily [place] KWESI PLUS 00 before Medical TEST STRP) breakfast; Bra nch strip ICD-10 E11.65 coenzyme Yes [id number] 100mg Take 1 [facility] Q10 3-25 capsule by ity of (COQ-10) 00:00: mouth [place] 100 mg 00 daily. Medical softgel Branch Insulin Yes [id number] [facility] [place], 3-25 directed ity of Disposable, 00:00: once daily [place] (RELION PEN 00 to inject Med ical NEEDLES) 32 insulin; Bran ch gauge x E11.65 " Ndle RESTASIS 0 Yes [facility] 0.05 % 3-25 ity of ophthalmic 00:00: [place] drops 00 [facility] blood sugar 0 Yes [id number] Check U nivers diagnostic 3-25 glucose ity of (ACCU-CHEK 00:00: [place] daily [place] KWES[facility] PLUS 00 before Medical TEST STRP) breakfast; Bra nch strip ICD-10 E11.65 coenzyme 0 Yes [id number] 100mg Take 1 [facility] Q10 3-25 capsule by ity of (COQ-10) 00:00: mouth [place] 100 mg 00 daily. Medical softgel Branch Insulin Yes [id number] Use [facility] [place] [facility], 3-25 directed ity of Disposable, 00:00: once daily [place] (RELION PEN 00 to inject Med ical NEEDLES) 32 insulin; Bran ch gauge x E11.65 5/32" Ndle RESTASIS 0 Yes [facility] 0.05 % 3-25 ity of ophthalmic 00:00: [place] drops [facility] blood sugar Yes [id number] Check [facility] nivers diagnostic 3-25 glucose ity of (ACCU-CHEK 00:00: once daily [place] KWES[facility] PLUS 00 before Medical TEST STRP) breakfast; Bra nch strip ICD-10 E11.65 coenzyme 0 Yes [id number] 100mg Take 1 [facility] Q10 3-25 capsule by ity of (COQ-10) 00:00: mouth [place] 100 mg 00 daily. Medical softgel Branch Insulin Yes [id number] Use [facility] [place] [facility], 3-25 directed ity of Disposable, 00:00: once daily [place] (RELION PEN 00 to inject Med ical NEEDLES) 32 insulin; Bran ch gauge x E11.65 " Ndle RESTASIS Yes [facility] 0.05 % 3-25 ity of ophthalmic 00:00: [place] drops [facility] blood sugar Yes [id number] Check [facility] nivers diagnostic 3-25 glucose ity of (ACCU-CHEK 00:00: once daily [place] KWES[facility] PLUS 00 before Medical TEST STRP) breakfast; Bra nch strip ICD-10 E11.65 coenzyme 0 Yes [id number] 100mg Take 1 [facility] Q10 3-25 capsule by ity of (COQ-10) 00:00: mouth [place] 100 mg 00 daily. Medical softgel Branch Insulin Yes [id number] Use [facility] [place] [facility], 3-25 directed ity of Disposable, 00:00: once daily [place] (RELION PEN 00 to inject Med ical NEEDLES) 32 insulin; Bran ch gauge x E11.65 " Ndle RESTASIS 0 Yes [facility] 0.05 % 3-25 ity of ophthalmic 00:00: [place] drops 00 [facility] blood sugar Yes [id number] Check U nivers diagnostic 3-25 glucose ity of (ACCU-CHEK 00:00: once daily [place] [facility]WES[facility] PLUS 00 before Medical TEST STRP) breakfast; Bra nch strip ICD-10 E11.65 coenzyme 0 Yes [id number] 100mg Take 1 [facility] Q10 3-25 capsule by ity of (COQ-10) 00:00: mouth [place] 100 mg 00 daily. Medical softgel Branch Insulin Yes [id number] Use [facility] [place] [facility], 3-25 directed ity of Disposable, 00:00: once daily [place] (RELION PEN 00 to inject Med ical NEEDLES) 32 insulin; Bran ch gauge x E11.65 5/32" Ndle RESTASIS 0 Yes [facility] 0.05 % 3-25 ity of ophthalmic 00:00: [place] drops 00 [facility] blood sugar Yes [id number] Check U nivers diagnostic 3-25 glucose ity of (ACCU-CHEK 00:00: once daily [place] KWES[facility] PLUS 00 before Medical TEST STRP) breakfast; Bra nch strip ICD-10 E11.65 coenzyme Yes [id number] 100mg Take 1 [facility] Q10 3-25 capsule by ity of (COQ-10) 00:00: mouth [place] 100 mg 00 daily. Medical softgel Branch Insulin Yes [id number] Use [facility] [place], 3-25 directed ity of Disposable, 00:00: once daily [place] (RELION PEN 00 to inject Med ical NEEDLES) 32 insulin; Bran ch gauge x E11.65 /32" Ndle RESTASIS 0 Yes [facility] 0.05 % 3-25 ity of ophthalmic 00:00: [place] drops 00 [facility] blood sugar 0 Yes [id number] Check U nivers diagnostic 3-25 glucose ity of (ACCU-CHEK 00:00: once daily [place] KWES[facility] PLUS 00 before Medical TEST STRP) breakfast; Bra nch strip ICD-10 E11.65 coenzyme 0 Yes [id number] 100mg Take 1 [facility] nivers Q10 3-25 capsule by ity of (COQ-10) 00:00: mouth [place] 100 mg 00 daily. Medical softgel Branch Insulin Yes [id number] Use [facility] [place], 3-25 directed ity of Disposable, 00:00: once daily [place] (RELION PEN 00 to inject Med ical NEEDLES) 32 insulin; Bran ch gauge x E11.65 5/32" Ndle RESTASIS 0 Yes [facility] 0.05 % 3-25 ity of ophthalmic 00:00: [place] drops 00 [facility] blood sugar Yes [id number] Check [facility] nivers diagnostic 3-25 glucose ity of (ACCU-CHEK 00:00: once daily [place] KWES[facility] PLUS 00 before Medical TEST STRP) breakfast; Bra nch strip ICD-10 E11.65 coenzyme Yes [id number] 100mg Take 1 [facility] nivers Q10 3-25 capsule by ity of (COQ-10) 00:00: mouth [place] 100 mg 00 daily. Medical softgel Branch Insulin Yes [id number] Use as [facility] [place], 3-25 directed ity of Disposable, 00:00: once daily [place] (RELION PEN 00 to inject Med ical NEEDLES) 32 insulin; Bran ch gauge x E11.65 " Ndle RESTASIS Yes [facility] 0.05 % 3-25 ity of ophthalmic 00:00: [place] drops 00 [facility] blood sugar Yes [id number] Check [facility] nivers diagnostic 3-25 glucose ity of (ACCU-CHEK 00:00: once daily [place] [facility]WES[facility] PLUS 00 before Medical TEST STRP) breakfast; Bra nch strip ICD-10 E11.65 coenzyme Yes [id number] 100mg Take 1 [facility] Q10 3-25 capsule by ity of (COQ-10) 00:00: mouth [place] 100 mg 00 daily. Medical softgel Branch Insulin Yes [id number] Use as [facility] [place], 3-25 directed ity of Disposable, 00:00: once daily [place] (RELION PEN 00 to inject Med ical NEEDLES) 32 insulin; Bran ch gauge x E11.65 " Ndle RESTASIS 0 Yes [facility] 0.05 % 3-25 ity of ophthalmic 00:00: [place] drops 00 [facility] blood sugar Yes [id number] Check [facility] nivers diagnostic 3-25 glucose ity of (ACCU-CHEK 00:00: once daily [place] KWES[facility] PLUS 00 before Medical TEST STRP) breakfast; Bra nch strip ICD-10 E11.65 coenzyme Yes [id number] 100mg Take 1 [facility] nivers Q10 3-25 capsule by ity of (COQ-10) 00:00: mouth [place] 100 mg 00 daily. Medical softgel Branch Insulin Yes [id number] Use [facility] [place], 3-25 directed ity of Disposable, 00:00: once daily [place] (RELION PEN 00 to inject Med ical NEEDLES) 32 insulin; Bran ch gauge x E11.65 5/32" Ndle RESTASIS 0 Yes [facility] 0.05 % 3-25 ity of ophthalmic 00:00: [place] drops 00 [facility] blood sugar 0 Yes [id number] Check [facility] nivers diagnostic 3-25 glucose ity of (ACCU-CHEK 00:00: once daily [place] KWES[facility] PLUS 00 before Medical TEST STRP) breakfast; Bra nch strip ICD-10 E11.65 coenzyme 0 Yes [id number] 100mg Take 1 [facility] nivers Q10 3-25 capsule by ity of (COQ-10) 00:00: mouth [place] 100 mg 00 daily. Medical softgel Branch Insulin 0 Yes [id number] Use as [facility] [place], 3-25 directed ity of Disposable, 00:00: once daily [place] (RELION PEN 00 to inject Med ical NEEDLES) 32 insulin; Bran ch gauge x E11.65 32" Ndle RESTASIS 0 Yes [facility] 0.05 % 3-25 ity of ophthalmic 00:00: [place] drops 00 [facility] blood sugar 0 Yes [id number] Check [facility] nivers diagnostic 3-25 glucose ity of (ACCU-CHEK 00:00: once daily [place] KWES[facility] PLUS 00 before Medical TEST STRP) breakfast; Bra nch strip ICD-10 E11.65 coenzyme 0 Yes [id number] 100mg Take 1 [facility] nivers Q10 3-25 capsule by ity of (COQ-10) 00:00: mouth [place] 100 mg 00 daily. Medical softgel Branch Insulin 0 Yes [id number] Use as [facility] [place], 3-25 directed ity of Disposable, 00:00: once daily [place] (RELION PEN 00 to inject Med ical NEEDLES) 32 insulin; Bran ch gauge x E11.65 5/32" Ndle RESTASIS 0 Yes [facility] 0.05 % 3-25 ity of ophthalmic 00:00: [place] drops 00 [facility] blood sugar 0 Yes [id number] Check [facility] nivers diagnostic 3-25 glucose ity of (ACCU-CHEK 00:00: once daily [place] [facility]WES[facility] PLUS 00 before Medical TEST STRP) breakfast; Bra nch strip ICD-10 E11.65 coenzyme 0 Yes [id number] 100mg Take 1 [facility] nivers Q10 3-25 capsule by ity of (COQ-10) 00:00: mouth [place] 100 mg 00 daily. Medical softgel Branch Insulin Yes [id number] Use [facility] [place] [facility], 3-25 directed ity of Disposable, 00:00: once daily [place] (RELION PEN 00 to inject Med ical NEEDLES) 32 insulin; Bran ch gauge x E11.65 32" Ndle RESTASIS 0 Yes [facility] 0.05 % 3-25 ity of ophthalmic 00:00: [place] drops 00 [facility] blood sugar Yes [id number] Check U nivers diagnostic 3-25 glucose ity of (ACCU-CHEK 00:00: once daily [place] KWES[facility] PLUS 00 before Medical TEST STRP) breakfast; Bra nch strip ICD-10 E11.65 coenzyme 0 Yes [id number] 100mg Take 1 U nivers Q10 3-25 capsule by ity of (COQ-10) 00:00: mouth [place] 100 mg 00 daily. Medical softgel Branch Insulin Yes [id number] Use [facility] [place] [facility], 3-25 directed ity of Disposable, 00:00: once daily [place] (RELION PEN 00 to inject Med ical NEEDLES) 32 insulin; Bran ch gauge x E11.65 " Ndle RESTASIS 0 Yes [facility] 0.05 % 3-25 ity of ophthalmic 00:00: [place] drops 00 [facility] blood sugar 0 Yes [id number] Check U nivers diagnostic 3-25 glucose ity of (ACCU-CHEK 00:00: once daily [place] KWES[facility] PLUS 00 before Medical TEST STRP) breakfast; Bra nch strip ICD-10 E11.65 coenzyme 0 Yes [id number] 100mg Take 1 U nivers Q10 3-25 capsule by ity of (COQ-10) 00:00: mouth [place] 100 mg 00 daily. Medical softgel Branch Insulin 0 Yes [id number] Use as [facility] [place], 3-25 directed ity of Disposable, 00:00: once daily [place] (RELION PEN 00 to inject Med ical NEEDLES) 32 insulin; Bran ch gauge x E11.65 532" Ndle RESTASIS 0 Yes [facility] 0.05 % 3-25 ity of ophthalmic 00:00: [place] drops 00 [facility] blood sugar 0 Yes [id number] Check U nivers diagnostic 3-25 glucose ity of (ACCU-CHEK 00:00: once daily [place] KWES[facility] PLUS 00 before Medical TEST STRP) breakfast; Bra nch strip ICD-10 E11.65 coenzyme 0 Yes [id number] 100mg Take 1 U nivers Q10 3-25 capsule by ity of (COQ-10) 00:00: mouth [place] 100 mg 00 daily. Medical softgel Branch Insulin 0 Yes [id number] Use as [facility] [place], 3-25 directed ity of Disposable, 00:00: once daily [place] (RELION PEN 00 to inject Med ical NEEDLES) 32 insulin; Bran ch gauge x E11.65 " Ndle RESTASIS 0 Yes [facility] 0.05 % 3-25 ity of ophthalmic 00:00: [place] drops 00 [facility] blood sugar 0 Yes [id number] Check U nivers diagnostic 3-25 glucose ity of (ACCU-CHEK 00:00: once daily [place] KWES[facility] PLUS 00 before Medical TEST STRP) breakfast; Bra nch strip ICD-10 E11.65 coenzyme 0 Yes [id number] 100mg Take 1 U nivers Q10 3-25 capsule by ity of (COQ-10) 00:00: mouth [place] 100 mg 00 daily. Medical softgel Branch Insulin 0 Yes [id number] Use as [facility] [place], 3-25 directed ity of Disposable, 00:00: once daily [place] (RELION PEN 00 to inject Med ical NEEDLES) 32 insulin; Bran ch gauge x E11.65 532" Ndle RESTASIS 0 Yes [facility] 0.05 % 3-25 ity of ophthalmic 00:00: [place] drops 00 [facility] blood sugar 0 Yes [id number] Check U nivers diagnostic 3-25 glucose ity of (ACCU-CHEK 00:00: once daily [place] KWESI PLUS 00 before Medical TEST STRP) breakfast; Bra nch strip ICD-10 E11.65 coenzyme 0 Yes [id number] 100mg Take 1 U nivers Q10 3-25 capsule by ity of (COQ-10) 00:00: mouth [place] 100 mg 00 daily. Medical softgel Branch Insulin Yes [id number] Use as [facility] [place], 3-25 directed ity of Disposable, 00:00: once daily [place] (RELION PEN 00 to inject Med ical NEEDLES) 32 insulin; Bran ch gauge x E11.65 5/32" Ndle RESTASIS 0 Yes [facility] 0.05 % 3-25 ity of ophthalmic 00:00: [place] drops 00 [facility] blood sugar Yes [id number] Check U nivers diagnostic 3-25 glucose ity of (ACCU-CHEK 00:00: once daily [place] KWES[facility] PLUS 00 before Medical TEST STRP) breakfast; Bra nch strip ICD-10 E11.65 coenzyme Yes [id number] 100mg Take 1 U nivers Q10 3-25 capsule by ity of (COQ-10) 00:00: mouth [place] 100 mg 00 daily. Medical softgel Branch Insulin Yes [id number] Use as [facility] [place], 3-25 directed ity of Disposable, 00:00: once daily [place] (RELION PEN 00 to inject Med ical NEEDLES) 32 insulin; Bran ch gauge x E11.65 /32" Ndle RESTASIS 0 Yes [facility] 0.05 % 3-25 ity of ophthalmic 00:00: [place] drops 00 [facility] blood sugar 0 Yes [id number] Check U nivers diagnostic 3-25 glucose ity of (ACCU-CHEK 00:00: once daily [place] KWES[facility] PLUS 00 before Medical TEST STRP) breakfast; Bra nch strip ICD-10 E11.65 coenzyme 0 Yes [id number] 100mg Take 1 U nivers Q10 3-25 capsule by ity of (COQ-10) 00:00: mouth [place] 100 mg 00 daily. Medical softgel Branch Insulin Yes [id number] Use as [facility] [place], 3-25 directed ity of Disposable, 00:00: once daily [place] (RELION PEN 00 to inject Med ical NEEDLES) 32 insulin; Bran ch gauge x E11.65 5/32" Ndle RESTASIS 0 Yes [facility] 0.05 % 3-25 ity of ophthalmic 00:00: [place] drops 00 [facility] blood sugar 0 Yes [id number] Check U nivers diagnostic 3-25 glucose ity of (ACCU-CHEK 00:00: once daily [place] KWES[facility] PLUS 00 before Medical TEST STRP) breakfast; Bra nch strip ICD-10 E11.65 coenzyme 0 Yes [id number] 100mg Take 1 U nivers Q10 3-25 capsule by ity of (COQ-10) 00:00: mouth [place] 100 mg 00 daily. Medical softgel Branch Insulin Yes [id number] Use as [facility] [place], 3-25 directed ity of Disposable, 00:00: once daily [place] (RELION PEN 00 to inject Med ical NEEDLES) 32 insulin; Bran ch gauge x E11.65 " Ndle RESTASIS 0 Yes [facility] 0.05 % 3-25 ity of ophthalmic 00:00: [place] drops 00 [facility] blood sugar Yes [id number] Check U nivers diagnostic 3-25 glucose ity of (ACCU-CHEK 00:00: once daily [place] KWES[facility] PLUS 00 before Medical TEST STRP) breakfast; Bra nch strip ICD-10 E11.65 coenzyme 0 Yes [id number] 100mg Take 1 U nivers Q10 3-25 capsule by ity of (COQ-10) 00:00: mouth [place] 100 mg 00 daily. Medical softgel Branch Insulin Yes [id number] Use as [facility] [place], 3-25 directed ity of Disposable, 00:00: once daily [place] (RELION PEN 00 to inject Med ical NEEDLES) 32 insulin; Bran ch gauge x E11.65 " Ndle RESTASIS 0 Yes [facility] 0.05 % 3-25 ity of ophthalmic 00:00: [place] drops 00 [facility] blood sugar 0 Yes [id number] Check U nivers diagnostic 3-25 glucose ity of (ACCU-CHEK 00:00: once daily [place] KWES[facility] PLUS 00 before Medical TEST STRP) breakfast; Bra nch strip ICD-10 E11.65 coenzyme 0 Yes [id number] 100mg Take 1 U nivers Q10 3-25 capsule by ity of (COQ-10) 00:00: mouth [place] 100 mg 00 daily. Medical softgel Branch Insulin Yes [id number] Use as [facility] [place], 3-25 directed ity of Disposable, 00:00: once daily [place] (RELION PEN 00 to inject Med ical NEEDLES) 32 insulin; Bran ch gauge x E11.65 5/32" Ndle RESTASIS 0 Yes [facility] 0.05 % 3-25 ity of ophthalmic 00:00: [place] drops 00 [facility] blood sugar Yes [id number] Check U nivers diagnostic 3-25 glucose ity of (ACCU-CHEK 00:00: once daily [place] [facility]ES[facility] PLUS 00 before Medical TEST STRP) breakfast; Bra nch strip ICD-10 E11.65 coenzyme Yes [id number] 100mg Take 1 U nivers Q10 3-25 capsule by ity of (COQ-10) 00:00: mouth [place] 100 mg 00 daily. Medical softgel Branch Insulin Yes [id number] Use as [facility] [place], 3-25 directed ity of Disposable, 00:00: once daily [place] (RELION PEN 00 to inject Med ical NEEDLES) 32 insulin; Bran ch gauge x E11.65 32" Ndle RESTASIS Yes [facility] 0.05 % 3-25 ity of ophthalmic 00:00: [place] drops 00 [facility] blood sugar Yes [id number] Check U nivers diagnostic 3-25 glucose ity of (ACCU-CHEK 00:00: once daily [place] KWES[facility] PLUS 00 before Medical TEST STRP) breakfast; Bra nch strip ICD-10 E11.65 coenzyme 0 Yes [id number] 100mg Take 1 U nivers Q10 3-25 capsule by ity of (COQ-10) 00:00: mouth [place] 100 mg 00 daily. Medical softgel Branch Insulin Yes [id number] Use as [facility] [place], 3-25 directed ity of Disposable, 00:00: once daily [place] (RELION PEN 00 to inject Med ical NEEDLES) 32 insulin; Bran ch gauge x E11.65 5/32" Ndle RESTASIS 0 Yes [facility] 0.05 % 3-25 ity of ophthalmic 00:00: [place] drops 00 [facility] blood sugar Yes [id number] Check U nivers diagnostic 3-25 glucose ity of (ACCU-CHEK 00:00: once daily [place] KWES[facility] PLUS 00 before Medical TEST STRP) breakfast; Bra nch strip ICD-10 E11.65 coenzyme 2021-0 Yes [id number] 100mg Take 1 U nivers Q10 3-25 capsule by ity of (COQ-10) 00:00: mouth [place] 100 mg 00 daily. Medical softgel Branch Insulin Yes [id number] Use as [facility] [place], 3-25 directed ity of Disposable, 00:00: once daily [place] (RELION PEN 00 to inject Med ical NEEDLES) 32 insulin; Bran ch gauge x E11.65 5/32" Ndle RESTASIS 0 Yes [facility] 0.05 % 3-25 ity of ophthalmic 00:00: [place] drops 00 [facility] coenzyme Yes [id number] 100mg Take 1 U nivers Q10 3-25 capsule by ity of (COQ-10) 00:00: mouth [place] 100 mg 00 daily. Medical softgel Branch Insulin Yes [id number] Use as [facility] [place], 3-25 directed ity of Disposable, 00:00: once daily [place] (RELION PEN 00 to inject Med ical NEEDLES) 32 insulin; Bran ch gauge x E11.65 5/32" Ndle RESTASIS 0 Yes [facility] 0.05 % 3-25 ity of ophthalmic 00:00: [place] drops 00 [facility] coenzyme 0 Yes [id number] 100mg Take 1 U nivers Q10 3-25 capsule by ity of (COQ-10) 00:00: mouth [place] 100 mg 00 daily. Medical softgel Branch Insulin Yes [id number] Use as [facility] [place], 3-25 directed ity of Disposable, 00:00: once daily [place] (RELION PEN 00 to inject Med ical NEEDLES) 32 insulin; Bran ch gauge x E11.65 32" Ndle RESTASIS 0 Yes [facility] 0.05 % 3-25 ity of ophthalmic 00:00: [place] drops 00 [facility] coenzyme 0 Yes [id number] 100mg Take 1 U nivers Q10 3-25 capsule by ity of (COQ-10) 00:00: mouth [place] 100 mg 00 daily. Medical softgel Branch Insulin Yes [id number] Use as [facility] [place], 3-25 directed ity of Disposable, 00:00: once daily [place] (RELION PEN 00 to inject Med ical NEEDLES) 32 insulin; Bran ch gauge x E11.65 5/32" Ndle RESTASIS Yes [facility] 0.05 % 3-25 ity of ophthalmic 00:00: [place] drops 00 [facility] coenzyme 0 Yes [id number] 100mg Take 1 U nivers Q10 3-25 capsule by ity of (COQ-10) 00:00: mouth [place] 100 mg 00 daily. Medical softgel Branch Insulin Yes [id number] Use as [facility] [place], 3-25 directed ity of Disposable, 00:00: once daily [place] (RELION PEN 00 to inject Med ical NEEDLES) 32 insulin; Bran ch gauge x E11.65 5/32" Ndle RESTASIS Yes [facility] 0.05 % 3-25 ity of ophthalmic 00:00: [place] drops 00 [facility] coenzyme 0 Yes [id number] 100mg Take 1 U nivers Q10 3-25 capsule by ity of (COQ-10) 00:00: mouth [place] 100 mg 00 daily. Medical softgel Branch Insulin Yes [id number] Use as [facility] [place], 3-25 directed ity of Disposable, 00:00: once daily [place] (RELION PEN 00 to inject Med ical NEEDLES) 32 insulin; Bran ch gauge x E11.65 5/32" Ndle RESTASIS Yes [facility] 0.05 % 3-25 ity of ophthalmic 00:00: [place] drops 00 [facility] coenzyme 0 Yes [id number] 100mg Take 1 U nivers Q10 3-25 capsule by ity of (COQ-10) 00:00: mouth [place] 100 mg 00 daily. Medical softgel Branch Insulin Yes [id number] Use as [facility] [place], 3-25 directed ity of Disposable, 00:00: once daily [place] (RELION PEN 00 to inject Med ical NEEDLES) 32 insulin; Bran ch gauge x E11.65 5/32" Ndle RESTASIS Yes [facility] 0.05 % 3-25 ity of ophthalmic 00:00: [place] drops 00 [facility] coenzyme 0 Yes [id number] 100mg Take 1 U nivers Q10 3-25 capsule by ity of (COQ-10) 00:00: mouth [place] 100 mg 00 daily. Medical softgel Branch Insulin Yes [id number] Use as [facility] [place], 3-25 directed ity of Disposable, 00:00: once daily [place] (RELION PEN 00 to inject Med ical NEEDLES) 32 insulin; Bran ch gauge x E11.65 5/32" Ndle RESTASIS 0 Yes [facility] 0.05 % 3-25 ity of ophthalmic 00:00: [place] drops 00 [facility] coenzyme 0 Yes [id number] 100mg Take 1 U nivers Q10 3-25 capsule by ity of (COQ-10) 00:00: mouth [place] 100 mg 00 daily. Medical softgel Branch Insulin Yes [id number] Use as [facility] [place], 3-25 directed ity of Disposable, 00:00: once daily [place] (RELION PEN 00 to inject Med ical NEEDLES) 32 insulin; Bran ch gauge x E11.65 /32" Ndle RESTASIS Yes [facility] 0.05 % 3-25 ity of ophthalmic 00:00: [place] drops 00 [facility] coenzyme 2021-0 Yes [id number] 100mg Take 1 U nivers Q10 3-25 capsule by ity of (COQ-10) 00:00: mouth [place] 100 mg 00 daily. Medical softgel Branch Insulin Yes [id number] Use as [facility] [place], 3-25 directed ity of Disposable, 00:00: once daily [place] (RELION PEN 00 to inject Med ical NEEDLES) 32 insulin; Bran ch gauge x E11.65 532" Ndle RESTASIS 0 Yes [facility] 0.05 % 3-25 ity of ophthalmic 00:00: [place] drops 00 [facility] coenzyme 2021-0 Yes [id number] 100mg Take 1 U nivers Q10 3-25 capsule by ity of (COQ-10) 00:00: mouth [place] 100 mg 00 daily. Medical softgel Branch Insulin Yes [id number] Use as [facility] [place], 3-25 directed ity of Disposable, 00:00: once daily [place] (RELION PEN 00 to inject Med ical NEEDLES) 32 insulin; Bran ch gauge x E11.65 5/32" Ndle RESTASIS 0 Yes [facility] 0.05 % 3-25 ity of ophthalmic 00:00: [place] drops 00 [facility] coenzyme 2021-0 Yes [id number] 100mg Take 1 U nivers Q10 3-25 capsule by ity of (COQ-10) 00:00: mouth [place] 100 mg 00 daily. Medical softgel Branch Insulin 0 Yes [id number] Use as [facility] [place], 3-25 directed ity of Disposable, 00:00: once daily [place] (RELION PEN 00 to inject Med ical NEEDLES) 32 insulin; Bran ch gauge x E11.65 5/32" Ndle RESTASIS 0 Yes [facility] 0.05 % 3-25 ity of ophthalmic 00:00: [place] drops 00 [facility] coenzyme 2021-0 Yes [id number] 100mg Take 1 U nivers Q10 3-25 capsule by ity of (COQ-10) 00:00: mouth [place] 100 mg 00 daily. Medical softgel Branch Insulin 0 Yes [id number] Use as [facility] [place], 3-25 directed ity of Disposable, 00:00: once daily [place] (RELION PEN 00 to inject Med ical NEEDLES) 32 insulin; Bran ch gauge x E11.65 5/32" Ndle RESTASIS 0 Yes [facility] 0.05 % 3-25 ity of ophthalmic 00:00: [place] drops 00 [facility] coenzyme 2021-0 Yes [id number] 100mg Take 1 U nivers Q10 3-25 capsule by ity of (COQ-10) 00:00: mouth [place] 100 mg 00 daily. Medical softgel Branch RESTASIS 2021-0 Yes [facility] 0.05 % 3-25 ity of ophthalmic 00:00: [place] drops 00 [facility] coenzyme 2-0 Yes [id number] 100mg Take 1 U nivers Q10 3-25 capsule by ity of (COQ-10) 00:00: mouth [place] 100 mg 00 daily. Medical softgel Branch RESTASIS 2021-0 Yes [facility] 0.05 % 3-25 ity of ophthalmic 00:00: [place] drops 00 [facility] coenzyme 2-0 Yes [id number] 100mg Take 1 U nivers Q10 3-25 capsule by ity of (COQ-10) 00:00: mouth [place] 100 mg 00 daily. Medical softgel Branch RESTASIS 2021-0 Yes [facility] 0.05 % 3-25 ity of ophthalmic 00:00: [place] drops 00 [facility] coenzyme 2022-0 Yes [id number] 100mg Take 1 U nivers Q10 3-25 capsule by ity of (COQ-10) 00:00: mouth [place] 100 mg 00 daily. Medical softgel Branch RESTASIS 2021-0 Yes [facility] 0.05 % 3-25 ity of ophthalmic 00:00: [place] drops 00 [facility] coenzyme 2-0 Yes [id number] 100mg Take 1 U nivers Q10 3-25 capsule by ity of (COQ-10) 00:00: mouth [place] 100 mg 00 daily. Medical softgel Branch RESTASIS 2021-0 Yes [facility] 0.05 % 3-25 ity of ophthalmic 00:00: [place] drops 00 [facility] coenzyme 2-0 Yes [id number] 100mg Take 1 U nivers Q10 3-25 capsule by ity of (COQ-10) 00:00: mouth [place] 100 mg 00 daily. Medical softgel Branch RESTASIS 2021-0 Yes [facility] 0.05 % 3-25 ity of ophthalmic 00:00: [place] drops 00 [facility] coenzyme 2-0 Yes [id number] 100mg Take 1 U nivers Q10 3-25 capsule by ity of (COQ-10) 00:00: mouth [place] 100 mg 00 daily. Medical softgel Branch RESTASIS 2021-0 Yes [facility] 0.05 % 3-25 ity of ophthalmic 00:00: [place] drops 00 [facility] coenzyme 2021-0 Yes [id number] 100mg Take 1 U nivers Q10 3-25 capsule by ity of (COQ-10) 00:00: mouth [place] 100 mg 00 daily. Medical softgel Branch RESTASIS 2021-0 Yes [facility] 0.05 % 3-25 ity of ophthalmic 00:00: [place] drops 00 [facility] coenzyme 2-0 Yes [id number] 100mg Take 1 U nivers Q10 3-25 capsule by ity of (COQ-10) 00:00: mouth [place] 100 mg 00 daily. Medical softgel Branch RESTASIS 2021-0 Yes [facility] 0.05 % 3-25 ity of ophthalmic 00:00: [place] drops 00 [facility] coenzyme 2-0 Yes [id number] 100mg Take 1 U nivers Q10 3-25 capsule by ity of (COQ-10) 00:00: mouth [place] 100 mg 00 daily. Medical softgel Branch RESTASIS 2021-0 Yes [facility] 0.05 % 3-25 ity of ophthalmic 00:00: [place] drops 00 [facility] coenzyme 2-0 Yes [id number] 100mg Take 1 U nivers Q10 3-25 capsule by ity of (COQ-10) 00:00: mouth [place] 100 mg 00 daily. Medical softgel Branch RESTASIS 2021-0 Yes [facility] 0.05 % 3-25 ity of ophthalmic 00:00: [place] drops 00 Medical Branch coenzyme 2-0 Yes [id number] 100mg Take 1 U nivers Q10 3-25 capsule by ity of (COQ-10) 00:00: mouth [place] 100 mg 00 daily. Medical softgel Branch RESTASIS 2021-0 Yes [facility] 0.05 % 3-25 ity of ophthalmic 00:00: [place] drops 00 Medical Branch coenzyme 2021-0 Yes [id number] 100mg Take 1 U nivers Q10 3-25 capsule by ity of (COQ-10) 00:00: mouth [place] 100 mg 00 daily. Medical softgel Branch RESTASIS 2021-0 Yes [facility] 0.05 % 3-25 ity of ophthalmic 00:00: [place] drops 00 Medical Branch coenzyme 2021-0 Yes [id number] 100mg Take 1 U nivers Q10 3-25 capsule by ity of (COQ-10) 00:00: mouth [place] 100 mg 00 daily. Medical softgel Branch RESTASIS 2021-0 Yes [facility] 0.05 % 3-25 ity of ophthalmic 00:00: [place] drops 00 Medical Branch coenzyme 2-0 Yes [id number] 100mg Take 1 U nivers Q10 3-25 capsule by ity of (COQ-10) 00:00: mouth [place] 100 mg 00 daily. Medical softgel Branch RESTASIS 2021-0 Yes [facility] 0.05 % 3-25 ity of ophthalmic 00:00: [place] drops 00 Medical Branch coenzyme 2-0 Yes [id number] 100mg Take 1 U nivers Q10 3-25 capsule by ity of (COQ-10) 00:00: mouth [place] 100 mg 00 daily. Medical softgel Branch RESTASIS 2021-0 Yes [facility] 0.05 % 3-25 ity of ophthalmic 00:00: [place] drops 00 Medical Branch coenzyme 2-0 Yes [id number] 100mg Take 1 U nivers Q10 3-25 capsule by ity of (COQ-10) 00:00: mouth [place] 100 mg 00 daily. Medical softgel Branch RESTASIS 2021-0 Yes [facility] 0.05 % 3-25 ity of ophthalmic 00:00: [place] drops 00 Medical Branch coenzyme 2-0 Yes [id number] 100mg Take 1 U nivers Q10 3-25 capsule by ity of (COQ-10) 00:00: mouth [place] 100 mg 00 daily. Medical softgel Branch RESTASIS 2021-0 Yes [facility] 0.05 % 3-25 ity of ophthalmic 00:00: [place] drops 00 Medical Branch coenzyme 2022-0 Yes [id number] 100mg Take 1 U nivers Q10 3-25 capsule by ity of (COQ-10) 00:00: mouth [place] 100 mg 00 daily. Medical softgel Branch RESTASIS 2021-0 Yes [facility] 0.05 % 3-25 ity of ophthalmic 00:00: [place] drops 00 Medical Branch coenzyme 2-0 Yes [id number] 100mg Take 1 U nivers Q10 3-25 capsule by ity of (COQ-10) 00:00: mouth [place] 100 mg 00 daily. Medical softgel Branch RESTASIS 2021-0 Yes [facility] 0.05 % 3-25 ity of ophthalmic 00:00: [place] drops 00 Medical Branch coenzyme 2-0 Yes [id number] 100mg Take 1 U nivers Q10 3-25 capsule by ity of (COQ-10) 00:00: mouth [place] 100 mg 00 daily. Medical softgel Branch RESTASIS 2021-0 Yes [facility] 0.05 % 3-25 ity of ophthalmic 00:00: [place] drops 00 Medical Branch coenzyme 2-0 Yes [id number] 100mg Take 1 U nivers Q10 3-25 capsule by ity of (COQ-10) 00:00: mouth [place] 100 mg 00 daily. Medical softgel Branch RESTASIS 2021-0 Yes [facility] 0.05 % 3-25 ity of ophthalmic 00:00: [place] drops 00 Medical Branch coenzyme 2-0 Yes [id number] 100mg Take 1 U nivers Q10 3-25 capsule by ity of (COQ-10) 00:00: mouth [place] 100 mg 00 daily. Medical softgel Branch RESTASIS 2021-0 Yes [facility] 0.05 % 3-25 ity of ophthalmic 00:00: [place] drops 00 Medical Branch coenzyme 2-0 Yes [id number] 100mg Take 1 U nivers Q10 3-25 capsule by ity of (COQ-10) 00:00: mouth [place] 100 mg 00 daily. Medical softgel Branch RESTASIS 2021-0 Yes [facility] 0.05 % 3-25 ity of ophthalmic 00:00: [place] drops 00 Medical Branch coenzyme 2-0 Yes [id number] 100mg Take 1 U nivers Q10 3-25 capsule by ity of (COQ-10) 00:00: mouth [place] 100 mg 00 daily. Medical softgel Branch RESTASIS 2021-0 Yes [facility] 0.05 % 3-25 ity of ophthalmic 00:00: [place] drops 00 Medical Branch coenzyme 2-0 Yes [id number] 100mg Take 1 U nivers Q10 3-25 capsule by ity of (COQ-10) 00:00: mouth [place] 100 mg 00 daily. Medical softgel Branch RESTASIS 2021-0 Yes [facility] 0.05 % 3-25 ity of ophthalmic 00:00: [place] drops 00 Medical Branch coenzyme 2-0 Yes [id number] 100mg Take 1 U nivers Q10 3-25 capsule by ity of (COQ-10) 00:00: mouth [place] 100 mg 00 daily. Medical softgel Branch RESTASIS 2021-0 Yes [facility] 0.05 % 3-25 ity of ophthalmic 00:00: [place] drops 00 Medical Branch coenzyme 2021-0 Yes [id number] 100mg Take 1 U nivers Q10 3-25 capsule by ity of (COQ-10) 00:00: mouth [place] 100 mg 00 daily. Medical softgel Branch RESTASIS 2021-0 Yes [facility] 0.05 % 3-25 ity of ophthalmic 00:00: [place] drops 00 Medical Branch coenzyme 2-0 Yes [id number] 100mg Take 1 U nivers Q10 3-25 capsule by ity of (COQ-10) 00:00: mouth [place] 100 mg 00 daily. Medical softgel Branch RESTASIS 2021-0 Yes [facility] 0.05 % 3-25 ity of ophthalmic 00:00: [place] drops 00 Medical Branch coenzyme 2-0 Yes [id number] 100mg Take 1 U nivers Q10 3-25 capsule by ity of (COQ-10) 00:00: mouth [place] 100 mg 00 daily. Medical softgel Branch RESTASIS 2021-0 Yes [facility] 0.05 % 3-25 ity of ophthalmic 00:00: [place] drops 00 Medical Branch coenzyme 2-0 Yes [id number] 100mg Take 1 U nivers Q10 3-25 capsule by ity of (COQ-10) 00:00: mouth [place] 100 mg 00 daily. Medical softgel Branch RESTASIS 2021-0 Yes [facility] 0.05 % 3-25 ity of ophthalmic 00:00: [place] drops 00 Medical Branch coenzyme 2-0 Yes [id number] 100mg Take 1 U nivers Q10 3-25 capsule by ity of (COQ-10) 00:00: mouth [place] 100 mg 00 daily. Medical softgel Branch RESTASIS 2021-0 Yes [facility] 0.05 % 3-25 ity of ophthalmic 00:00: [place] drops 00 Medical Branch coenzyme 2021-0 Yes [id number] 100mg Take 1 U nivers Q10 3-25 capsule by ity of (COQ-10) 00:00: mouth [place] 100 mg 00 daily. Medical softgel Branch RESTASIS 2021-0 Yes [facility] 0.05 % 3-25 ity of ophthalmic 00:00: [place] drops 00 Medical Branch coenzyme 2021-0 Yes [id number] 100mg Take 1 U nivers Q10 3-25 capsule by ity of (COQ-10) 00:00: mouth [place] 100 mg 00 daily. Medical softgel Branch RESTASIS 2021-0 Yes [facility] 0.05 % 3-25 ity of ophthalmic 00:00: [place] drops 00 Medical Branch coenzyme 2-0 Yes [id number] 100mg Take 1 U nivers Q10 3-25 capsule by ity of (COQ-10) 00:00: mouth [place] 100 mg 00 daily. Medical softgel Branch RESTASIS 2021-0 Yes [facility] 0.05 % 3-25 ity of ophthalmic 00:00: [place] drops 00 Medical Branch coenzyme 2-0 Yes [id number] 100mg Take 1 U nivers Q10 3-25 capsule by ity of (COQ-10) 00:00: mouth [place] 100 mg 00 daily. Medical softgel Branch RESTASIS 2021-0 Yes [facility] 0.05 % 3-25 ity of ophthalmic 00:00: [place] drops 00 Medical Branch coenzyme 2-0 Yes [id number] 100mg Take 1 U nivers Q10 3-25 capsule by ity of (COQ-10) 00:00: mouth [place] 100 mg 00 daily. Medical softgel Branch RESTASIS 2021-0 Yes [facility] 0.05 % 3-25 ity of ophthalmic 00:00: [place] drops 00 Medical Branch coenzyme 2-0 Yes [id number] 100mg Take 1 U nivers Q10 3-25 capsule by ity of (COQ-10) 00:00: mouth [place] 100 mg 00 daily. Medical softgel Branch RESTASIS 2021-0 Yes [facility] 0.05 % 3-25 ity of ophthalmic 00:00: [place] drops 00 Medical Branch coenzyme 2022-0 Yes [id number] 100mg Take 1 U nivers Q10 3-25 capsule by ity of (COQ-10) 00:00: mouth [place] 100 mg 00 daily. Medical softgel Branch RESTASIS 2021-0 Yes [facility] 0.05 % 3-25 ity of ophthalmic 00:00: [place] drops 00 Medical Branch coenzyme 2-0 Yes [id number] 100mg Take 1 U nivers Q10 3-25 capsule by ity of (COQ-10) 00:00: mouth [place] 100 mg 00 daily. Medical softgel Branch RESTASIS 2021-0 Yes [facility] 0.05 % 3-25 ity of ophthalmic 00:00: [place] drops 00 Medical Branch coenzyme 2-0 Yes [id number] 100mg Take 1 U nivers Q10 3-25 capsule by ity of (COQ-10) 00:00: mouth [place] 100 mg 00 daily. Medical softgel Branch RESTASIS 2021-0 Yes [facility] 0.05 % 3-25 ity of ophthalmic 00:00: [place] drops 00 Medical Branch coenzyme 2-0 Yes [id number] 100mg Take 1 U nivers Q10 3-25 capsule by ity of (COQ-10) 00:00: mouth [place] 100 mg 00 daily. Medical softgel Branch RESTASIS 2021-0 Yes [facility] 0.05 % 3-25 ity of ophthalmic 00:00: [place] drops 00 Medical Branch coenzyme 2-0 Yes [id number] 100mg Take 1 U nivers Q10 3-25 capsule by ity of (COQ-10) 00:00: mouth [place] 100 mg 00 daily. Medical softgel Branch RESTASIS 2021-0 Yes [facility] 0.05 % 3-25 ity of ophthalmic 00:00: [place] drops 00 Medical Branch coenzyme 2-0 Yes [id number] 100mg Take 1 U nivers Q10 3-25 capsule by ity of (COQ-10) 00:00: mouth [place] 100 mg 00 daily. Medical softgel Branch RESTASIS 2021-0 Yes [facility] 0.05 % 3-25 ity of ophthalmic 00:00: [place] drops 00 Medical Branch coenzyme 2-0 Yes [id number] 100mg Take 1 U nivers Q10 3-25 capsule by ity of (COQ-10) 00:00: mouth [place] 100 mg 00 daily. Medical softgel Branch RESTASIS 2021-0 Yes [facility] 0.05 % 3-25 ity of ophthalmic 00:00: [place] drops 00 Medical Branch coenzyme 2-0 Yes [id number] 100mg Take 1 U nivers Q10 3-25 capsule by ity of (COQ-10) 00:00: mouth [place] 100 mg 00 daily. Medical softgel Branch RESTASIS 2021-0 Yes [facility] 0.05 % 3-25 ity of ophthalmic 00:00: [place] drops 00 Medical Branch coenzyme 2-0 Yes [id number] 100mg Take 1 U nivers Q10 3-25 capsule by ity of (COQ-10) 00:00: mouth [place] 100 mg 00 daily. Medical softgel Branch RESTASIS 2021-0 Yes [facility] 0.05 % 3-25 ity of ophthalmic 00:00: [place] drops 00 Medical Branch coenzyme 2021-0 Yes [id number] 100mg Take 1 U nivers Q10 3-25 capsule by ity of (COQ-10) 00:00: mouth [place] 100 mg 00 daily. Medical softgel Branch RESTASIS 2021-0 Yes [facility] 0.05 % 3-25 ity of ophthalmic 00:00: [place] drops 00 Medical Branch coenzyme 2-0 Yes [id number] 100mg Take 1 U nivers Q10 3-25 capsule by ity of (COQ-10) 00:00: mouth [place] 100 mg 00 daily. Medical softgel Branch RESTASIS 2021-0 Yes [facility] 0.05 % 3-25 ity of ophthalmic 00:00: [place] drops 00 Medical Branch coenzyme 2-0 Yes [id number] 100mg Take 1 U nivers Q10 3-25 capsule by ity of (COQ-10) 00:00: mouth [place] 100 mg 00 daily. Medical softgel Branch RESTASIS 2021-0 Yes [facility] 0.05 % 3-25 ity of ophthalmic 00:00: [place] drops 00 Medical Branch coenzyme 2021-0 Yes [id number] 100mg Take 1 U nivers Q10 3-25 capsule by ity of (COQ-10) 00:00: mouth [place] 100 mg 00 daily. Medical softgel Branch RESTASIS 0 Yes [facility] 0.05 % 3-25 ity of ophthalmic 00:00: [place] drops 00 Medical Branch coenzyme 2021-0 Yes [id number] 100mg Take 1 U nivers Q10 3-25 capsule by ity of (COQ-10) 00:00: mouth [place] 100 mg 00 daily. Medical softgel Branch RESTASIS 0 Yes [facility] 0.05 % 3-25 ity of ophthalmic 00:00: [place] drops 00 Medical Branch coenzyme 2021-0 Yes [id number] 100mg Take 1 U nivers Q10 3-25 capsule by ity of (COQ-10) 00:00: mouth [place] 100 mg 00 daily. Medical softgel Branch RESTASIS 0 Yes [facility] 0.05 % 3-25 ity of ophthalmic 00:00: [place] drops 00 Medical Branch coenzyme 2021-0 Yes [id number] 100mg Take 1 U nivers Q10 3-25 capsule by ity of (COQ-10) 00:00: mouth [place] 100 mg 00 daily. Medical softgel Branch RESTASIS 0 Yes [facility] 0.05 % 3-25 ity of ophthalmic 00:00: [place] drops 00 Medical Branch coenzyme 2021-0 Yes [id number] 100mg Take 1 U nivers Q10 3-25 capsule by ity of (COQ-10) 00:00: mouth [place] 100 mg 00 daily. Medical softgel Branch RESTASIS 0 Yes [facility] 0.05 % 3-25 ity of ophthalmic 00:00: [place] drops 00 Medical Branch Insulin 2021-0 2022- No [id number] Use as Uni vers [place], 3- directed ity of Disposable, 00:00: 00:00 once daily [place] (RELION PEN 00 :00 to inject Med ical NEEDLES) 32 insulin; Bran ch gauge x E11.65 5/32" Ndle blood sugar 2021- No [id number] Check [facility] diagnostic 07-06 12- glucose ity o f (ACCU-CHEK 00:00: 00:00 once daily [place] KWESI PLUS 00 :00 before Medical TEST STRP) breakfast; Bra nch strip ICD-10 E11.65 blood sugar 2021- No [id number] Check [facility] diagnostic 07-06 glucose ity o [...] 100 unit/mL (3 mL) insulin pen baclofen Yes 5mg Take 5 mg [facility] tablet 2-[address] [facility]: [facility] l insulin Yes 7U Inject 7 Method i DETEMIR 2-[address] ([facility]mir 00:00: under the [facility] FlexTouch 00 skin. l U-100 Insuln) 100 unit/mL (3 mL) insulin pen baclofen Yes [id number] 5mg Take 1 [facility] mg tablet 2-24 tablet by ity o f 00:00: mouth 3 (three) Medical times Branch daily as needed (muscle pain or spasm). Insulin Yes [id number] 7U inject 7 Un wendy Detemir 2-24 Units ity of (LEVEMIR 00:00[facility] skin at Medical U-100 bedtime. Branch INSULN) 100 unit/mL (3 mL) injection baclofen 5 Yes [id number] 5mg Take 1 [facility] mg tablet 2-24 tablet by ity o f 00:00: mouth 3 00 (three) Medical times Branch daily as needed (muscle pain or spasm). Insulin Yes [id number] 7U inject 7 Un wendy Detemir 2-24 Units ity of (LEVEMIR 00:00: [place] FLEXT[place] 00 skin at Medical U-100 bedtime. Branch INSULN) 100 unit/mL (3 mL) injection baclofen 5 0 Yes [id number] 5mg Take 1 [facility] mg tablet 2-24 tablet by ity o f 00:00: mouth 3 (three) Medical times [place] daily as needed (muscle pain or spasm). Insulin 0 Yes [id number] 7U inject 7 Un wendy Detemir 2-24 Units ity of (LEVEMIR 00:00: [place] FLEXTOU[place] 00 skin at Medical U-100 bedtime. Branch INSULN) 100 unit/mL (3 mL) injection baclofen 5 0 Yes [id number] 5mg Take 1 [facility] mg tablet 2-24 tablet by ity o f 00:00: mouth 3 (three) Medical times [place] daily as needed (muscle pain or spasm). Insulin Yes [id number] 7U inject 7 Un wendy Detemir 2-24 Units ity of (LEVEMIR 00:00: [place] FLEXTOUCH 00 skin at Medical U-100 bedtime. Branch INSULN) 100 unit/mL (3 mL) injection baclofen 5 0 Yes [id number] 5mg Take 1 [facility] mg tablet 2-24 tablet by ity o f 00:00: mouth 3 (three) Medical times [place] daily as needed (muscle pain or spasm). Insulin 0 Yes [id number] 7U inject 7 Un wendy Detem[place] 2-24 Units ity of (LEVEMIR 00:00: [place] FLEXTOUCH 00 skin at Medical U-100 bedtime. Branch INSULN) 100 unit/mL (3 mL) injection baclofen 5 0 Yes [id number] 5mg Take 1 [facility] mg tablet 2-24 tablet by ity o f 00:00: mouth 3 (three) Medical times [place] daily as needed (muscle pain or spasm). Insulin 2021-0 Yes [id number] 7U inject 7 Un wendy Detem[place] 2-24 Units ity of (LEVEMIR 00:00: [place] FLEXTOUCH 00 skin at Medical U-100 bedtime. Branch INSULN) 100 unit/mL (3 mL) injection Insulin 2021-0 Yes [id number] 7U inject 7 Un wendy Detemir 2-24 Units ity of (LEVEMIR 00:00: [place] FLEXTOUCH 00 skin at Medical U-100 bedtime. Branch INSULN) 100 unit/mL (3 mL) injection Insulin Yes [id number] 7U inject 7 Un wendy Detemir 2-24 Units ity of (LEVEMIR 00:00: [place] FLEXTOUCH 00 skin at Medical U-100 bedtime. Branch INSULN) 100 unit/mL (3 mL) injection Insulin Yes [id number] 7U inject 7 Un wendy Detemir 2-24 Units ity of (LEVEMIR 00:00: [place] FLEXTOUCH 00 skin at Medical U-100 bedtime. Branch INSULN) 100 unit/mL (3 mL) injection Insulin Yes [id number] 7U inject 7 Un wendy Detemir 2-24 Units ity of (LEVEMIR 00:00: [place] FLEXTOUCH 00 skin at Medical U-100 bedtime. Branch INSULN) 100 unit/mL (3 mL) injection Insulin Yes [id number] 7U inject 7 Un wendy Detem[place] 2-24 Units ity of (LEVEMIR 00:00: [place] FLEXTOUCH 00 skin at Medical U-100 bedtime. Branch INSULN) 100 unit/mL (3 mL) injection Insulin Yes [id number] 7U inject 7 Un wendy Detemir 2-24 Units ity of (LEVEMIR 00:00: [place] FLEXTOUCH 00 skin at Medical U-100 bedtime. Branch INSULN) 100 unit/mL (3 mL) injection Insulin Yes [id number] 7U inject 7 Un wendy Detemir 2-24 Units ity of (LEVEMIR 00:00: [place] FLEXTOUCH 00 skin at Medical U-100 bedtime. Branch INSULN) 100 unit/mL (3 mL) injection Insulin Yes [id number] 7U inject 7 Un wendy Detemir 2-24 Units ity of (LEVEMIR 00:00: [place] FLEXTOUCH 00 skin at Medical U-100 bedtime. Branch INSULN) 100 unit/mL (3 mL) injection Insulin 0 Yes [id number] 7U inject 7 Un wendy Detemir 2-24 Units ity of (LEVEMIR 00:00: [place] FLEXTOUCH 00 skin at Medical U-100 bedtime. Branch INSULN) 100 unit/mL (3 mL) injection Insulin Yes [id number] 7U inject 7 Un wendy Detem[place] 2-24 Units ity of (LEVEMIR 00:00: [place] FLEXTOUCH 00 skin at Medical U-100 bedtime. Branch INSULN) 100 unit/mL (3 mL) injection Insulin Yes [id number] 7U inject 7 Un wendy Detem[place] 2-24 Units ity of (LEVEMIR 00:00: [place] FLEXTOUCH 00 skin at Medical U-100 bedtime. Branch INSULN) 100 unit/mL (3 mL) injection Insulin Yes [id number] 7U inject 7 Un wendy Detem[place] 2-24 Units ity of (LEVEMIR 00:00: [place] FLEXTOUCH 00 skin at Medical U-100 bedtime. Branch INSULN) 100 unit/mL (3 mL) injection Insulin Yes [id number] 7U inject 7 Un wendy Detem[place] 2-24 Units ity of (LEVEMIR 00:00: [place] FLEXTOUCH 00 skin at Medical U-100 bedtime. Branch INSULN) 100 unit/mL (3 mL) injection Insulin Yes [id number] 7U inject 7 Un wendy Detem[place] 2-24 Units ity of (LEVEMIR 00:00: [place] FLEXTOUCH 00 skin at Medical U-100 bedtime. Branch INSULN) 100 unit/mL (3 mL) injection Insulin 0 Yes [id number] 7U inject 7 Un wendy Detem[place] 2-24 Units ity of (LEVEMIR 00:00: [place] FLEXTOUCH 00 skin at Medical U-100 bedtime. Branch INSULN) 100 unit/mL (3 mL) injection Insulin 0 Yes [id number] 7U inject 7 Un wendy [place]em[place] 2-24 Units ity of (LEVEMIR 00:00: [place] FLEXTOUCH 00 skin at Medical U-100 bedtime. Branch INSULN) 100 unit/mL (3 mL) injection Insulin Yes [id number] 7U inject 7 Un wendy [place]em[place] 2-24 Units ity of (LEVEMIR 00:00: [place] FLEXTOUCH 00 skin at Medical U-100 bedtime. Branch INSULN) 100 unit/mL (3 mL) injection Insulin Yes [id number] 7U inject 7 Un wendy Detem[place] 2-24 Units ity of (LEVEMIR 00:00: [place] FLEXTOUCH 00 skin at Medical U-100 bedtime. Branch INSULN) 100 unit/mL (3 mL) injection Insulin Yes [id number] 7U inject 7 Un wendy Detem[place] 2-24 Units ity of (LEVEMIR 00:00: [place] FLEXTOUCH 00 skin at Medical U-100 bedtime. Branch INSULN) 100 unit/mL (3 mL) injection Insulin Yes [id number] 7U inject 7 Un wendy Detem[place] 2-24 Units ity of (LEVEMIR 00:00: under the [place] FLEXTOUCH 00 skin at Medical U-100 bedtime. Branch INSULN) 100 unit/mL (3 mL) injection Insulin Yes [id number] 7U inject 7 Un wendy Detem[place] 2-24 Units ity of (LEVEMIR 00:00: [place] the [place] FLEXTOUCH 00 skin at Medical U-100 bedtime. Branch INSULN) 100 unit/mL (3 mL) injection Insulin Yes [id number] 7U inject 7 Un wendy [place]em[place] 2-24 Units ity of (LEVEMIR 00:00: [place] FLEXTOUCH 00 skin at Medical U-100 bedtime. Branch INSULN) 100 unit/mL (3 mL) injection Insulin Yes [id number] 7U inject 7 Un wendy Detem[place] 2-24 Units ity of (LEVEMIR 00:00: under the [place] FLEXTOUCH 00 skin at Medical U-100 bedtime. Branch INSULN) 100 unit/mL (3 mL) injection Insulin Yes [id number] 7U inject 7 Un wendy Detem[place] 2-24 Units ity of (LEVEMIR 00:00: [place] FLEXTOUCH 00 skin at Medical U-100 bedtime. Branch INSULN) 100 unit/mL (3 mL) injection Insulin 0 Yes [id number] 7U inject 7 Un wendy Detem[place] 2-24 Units ity of (LEVEMIR 00:00: [place] FLEXTOUCH 00 skin at Medical U-100 bedtime. Branch INSULN) 100 unit/mL (3 mL) injection Insulin 0 Yes [id number] 7U inject 7 Un wendy Detemir 2-24 Units ity of (LEVEMIR 00:00: under the [place] FLEXTOUCH 00 skin at Medical U-100 bedtime. Branch INSULN) 100 unit/mL (3 mL) injection Insulin 0 Yes [id number] 7U inject 7 Un wendy Detem[place] 2-24 Units ity of (LEVEMIR 00:00: under the [place] FLEXTOUCH 00 skin at Medical U-100 bedtime. Branch INSULN) 100 unit/mL (3 mL) injection Insulin 0 Yes [id number] 7U inject 7 Un wendy Detem[place] 2-24 Units ity of (LEVEMIR 00:00: under the [place] FLEXTOUCH 00 skin at Medical U-100 bedtime. Branch INSULN) 100 unit/mL (3 mL) injection Insulin 0 Yes [id number] 7U inject 7 Un wendy Detemir 2-24 Units ity of (LEVEMIR 00:00: under the [place] FLEXTOUCH 00 skin at Medical U-100 bedtime. Branch INSULN) 100 unit/mL (3 mL) injection Insulin 0 Yes [id number] 7U inject 7 Un wendy Detem[place] 2-24 Units ity of (LEVEMIR 00:00: [place] the [place] FLEXTOUCH 00 skin at Medical U-100 bedtime. Branch INSULN) 100 unit/mL (3 mL) injection Insulin 0 Yes [id number] 7U inject 7 Un wendy Detemir 2-24 Units ity of (LEVEMIR 00:00: [place] the [place] FLEXTOUCH 00 skin at Medical U-100 bedtime. Branch INSULN) 100 unit/mL (3 mL) injection Insulin 0 Yes [id number] 7U inject 7 Un wendy Detemir 2-24 Units ity of (LEVEMIR 00:00: [place] the [place] FLEXTOUCH 00 skin at Medical U-100 bedtime. Branch INSULN) 100 unit/mL (3 mL) injection Insulin 0 Yes [id number] 7U inject 7 Un wendy Detem[place] 2-24 Units ity of (LEVEMIR 00:00: [place] the [place] FLEXTOUCH 00 skin at Medical U-100 bedtime. Branch INSULN) 100 unit/mL (3 mL) injection Insulin 0 Yes [id number] 7U inject 7 Un wendy Detemir 2-24 Units ity of (LEVEMIR 00:00: under the [place] FLEXTOUCH 00 skin at Medical U-100 bedtime. Branch INSULN) 100 unit/mL (3 mL) injection Insulin Yes [id number] 7U inject 7 Un wendy Detem[place] 2-24 Units ity of (LEVEMIR 00:00: under the [place] FLEXTOUCH 00 skin at Medical U-100 bedtime. Branch INSULN) 100 unit/mL (3 mL) injection Insulin Yes [id number] 7U inject 7 Un wendy Detem[place] 2-24 Units ity of (LEVEMIR 00:00: under the [place] FLEXTOUCH 00 skin at Medical U-100 bedtime. Branch INSULN) 100 unit/mL (3 mL) injection Insulin 0 Yes [id number] 7U inject 7 Un wendy Detemir 2-24 Units ity of (LEVEMIR 00:00: under the [place] FLEXTOUCH 00 skin at Medical U-100 bedtime. Branch INSULN) 100 unit/mL (3 mL) injection Insulin 0 Yes [id number] 7U inject 7 Un wendy Detemir 2-24 Units ity of (LEVEMIR 00:00: under the [place] FLEXTOUCH 00 skin at Medical U-100 bedtime. Branch INSULN) 100 unit/mL (3 mL) injection Insulin 0 Yes [id number] 7U inject 7 Un wendy Detem[place] 2-24 Units ity of (LEVEMIR 00:00: under the [place] FLEXTOUCH 00 skin at Medical U-100 bedtime. Branch INSULN) 100 unit/mL (3 mL) injection Insulin 0 Yes [id number] 7U inject 7 Un wendy Detemir 2-24 Units ity of (LEVEMIR 00:00: under the [place] FLEXTOUCH 00 skin at Medical U-100 bedtime. Branch INSULN) 100 unit/mL (3 mL) injection Insulin 0 Yes [id number] 7U inject 7 Un wendy Detemir 2-24 Units ity of (LEVEMIR 00:00: [place] FLEXTOUCH 00 skin at Medical U-100 bedtime. Branch INSULN) 100 unit/mL (3 mL) injection Insulin 0 Yes [id number] 7U inject 7 Un wendy Detemir 2-24 Units ity of (LEVEMIR 00:00: under the [place] FLEXTOUCH 00 skin at Medical U-100 bedtime. Branch INSULN) 100 unit/mL (3 mL) injection Insulin 0 Yes [id number] 7U inject 7 Un wendy Detemir 2-24 Units ity of (LEVEMIR 00:00: under the [place] FLEXTOUCH 00 skin at Medical U-100 bedtime. Branch INSULN) 100 unit/mL (3 mL) injection Insulin 0 Yes [id number] 7U inject 7 Un wendy Detemir 2-24 Units ity of (LEVEMIR 00:00: under the [place] FLEXTOUCH 00 skin at Medical U-100 bedtime. Branch INSULN) 100 unit/mL (3 mL) injection Insulin 0 Yes [id number] 7U inject 7 Un wendy Detemir 2-24 Units ity of (LEVEMIR 00:00: under the [place] FLEXTOUCH 00 skin at Medical U-100 bedtime. Branch INSULN) 100 unit/mL (3 mL) injection Insulin 0 Yes [id number] 7U inject 7 Un wendy Detemir 2-24 Units ity of (LEVEMIR 00:00: [place] FLEXTOUCH 00 skin at Medical U-100 bedtime. Branch INSULN) 100 unit/mL (3 mL) injection Insulin 0 Yes [id number] 7U inject 7 Un wendy Detemir 2-24 Units ity of (LEVEMIR 00:00: [place] FLEXTOUCH 00 skin at Medical U-100 bedtime. Branch INSULN) 100 unit/mL (3 mL) injection Insulin 0 Yes [id number] 7U inject 7 Un wendy Detemir 2-24 Units ity of (LEVEMIR 00:00: [place] the [place] FLEXT[place]CH 00 skin at Medical U-100 bedtime. Branch INSULN) 100 unit/mL (3 mL) injection Insulin 0 Yes [id number] 7U inject 7 Un wendy Detemir 2-24 Units ity of (LEVEMIR 00:00: under the [place] FLEXTOUCH 00 skin at Medical U-100 bedtime. Branch INSULN) 100 unit/mL (3 mL) injection Insulin Yes [id number] 7U inject 7 Un wendy Detemir 2-24 Units ity of (LEVEMIR 00:00: [place] the [place] FLEXT[place]CH 00 skin at Medical U-100 bedtime. Branch INSULN) 100 unit/mL (3 mL) injection Insulin Yes [id number] 7U inject 7 Un wendy Detemir 2-24 Units ity of (LEVEMIR 00:00: [place] the [place] FLEXT[place]CH 00 skin at Medical U-100 bedtime. Branch INSULN) 100 unit/mL (3 mL) injection Insulin Yes [id number] 7U inject 7 Un wendy Detemir 2-24 Units ity of (LEVEMIR 00:00: [place] the [place] FLEXT[place]CH 00 skin at Medical U-100 bedtime. Branch INSULN) 100 unit/mL (3 mL) injection Insulin 0 Yes [id number] 7U inject 7 Un wendy Detemir 2-24 Units ity of (LEVEMIR 00:00: [place] the [place] FLEXT[place]CH 00 skin at Medical U-100 bedtime. Branch INSULN) 100 unit/mL (3 mL) injection Insulin 0 Yes [id number] 7U inject 7 Un wendy Detemir 2-24 Units ity of (LEVEMIR 00:00: [place]LEXT[place] 00 skin at Medical U-100 bedtime. Branch INSULN) 100 unit/mL (3 mL) injection Insulin Yes [id number] 7U inject 7 Un wendy Detemir 2-24 Units [facility] [place] [facility]-100 bedtime. Branch INSULN) 100 unit/mL (3 mL) injection Insulin 0 Yes [id number] 7U inject 7 Un wendy [facility] 2-24 Units ity of ([place] 00:[place] [facility] [place] [facility] U-100 bedtime. Branch INSULN) 100 unit/mL (3 mL) injection Insulin Yes [id number] 7U inject 7 Un [place] 2-24 Units [facility] of ([place] [facility] [place] Medical U-100 bedtime. Branch INSULN) 100 unit/mL (3 mL) injection Insulin Yes [id number] 7U inject 7 Un [place] 2-24 Units [facility] of ([place] 00:[place] [facility] at Medical [facility]-100 bedtime. Branch INSULN) 100 unit/mL (3 mL) injection Insulin Yes [id number] 7U inject 7 Un [place] 2-24 Units [facility] of ([facility] 00:[place] [facility] at Medical U-100 bedtime. Branch INSULN) 100 unit/mL (3 mL) injection Insulin 0 Yes [id number] 7U inject 7 Un wen[place] 2-24 Units it[facility] of ([place] 00:[place]: [place] skin at Medical U-100 bedtime. Branch INSULN) 100 unit/mL (3 mL) injection Insulin Yes [id number] 7U inject 7 Un [place] 2-24 Units [facility]y of ([place] 00:[place]: [place] skin at Medical U-100 bedtime. Branch INSULN) 100 unit/mL (3 mL) injection Insulin 0 Yes [id number] 7U inject 7 Un [place] 2-24 Units ity of ([place] 00:[place]: [place] skin at Medical U-100 bedtime. Branch INSULN) 100 unit/mL (3 mL) injection Insulin 0 Yes [id number] 7U inject 7 Un [place] 2-24 Units it[facility] of ([place] 00:[place]: [place] skin at Medical U-100 bedtime. Branch INSULN) 100 unit/mL (3 mL) injection Insulin 0 Yes [id number] 7U inject 7 Un wend[place] 2-24 Units ity of ([place] 00:[place]: [place] skin at Medical U-100 bedtime. Branch INSULN) 100 unit/mL (3 mL) injection Insulin Yes [id number] 7U inject 7 Un wend[place] 2-24 Units ity of ([facility] 00:[place]: [place] skin at Medical U-100 bedtime. Branch INSULN) 100 unit/mL (3 mL) injection Insulin Yes [id number] 7U inject 7 Un [place] 2-24 Units ity of ([place] 00:[place]: [place] skin at Medical U-100 bedtime. Branch INSULN) 100 unit/mL (3 mL) injection Insulin Yes [id number] 7U inject 7 Un [place] 2-24 Units ity of ([place] 00:[place]: [place] skin at Medical U-100 bedtime. Branch INSULN) 100 unit/mL (3 mL) injection Insulin Yes [id number] 7U inject 7 Un [place] 2-24 Units ity of ([facility] 00:[place]: [place] skin at Medical U-100 bedtime. Branch INSULN) 100 unit/mL (3 mL) injection Insulin Yes [id number] 7U inject 7 Un [place] 2-24 Units ity of ([place] 00:00: [place] skin at Medical U-100 bedtime. Branch INSULN) 100 unit/mL (3 mL) injection Insulin Yes [id number] 7U inject 7 Un wend[place] 2-24 Units ity of ([place] 00:00: [place] skin at Medical U-100 bedtime. Branch INSULN) 100 unit/mL (3 mL) injection Insulin 0 Yes [id number] 7U inject 7 Un w[place] 2-24 Units ity of ([place] 00:00: [place] skin at Medical U-100 bedtime. Branch INSULN) 100 unit/mL (3 mL) injection Insulin 0 Yes [id number] 7U inject 7 Un wendy [place] 2-24 Units ity of ([place] 00:00: [place] skin at Medical U-100 bedtime. Branch INSULN) 100 unit/mL (3 mL) injection Insulin 0 Yes [id number] 7U inject 7 Un wendy [place] 2-24 Units ity of ([place] 00:00: [place] skin at Medical U-100 bedtime. Branch INSULN) 100 unit/mL (3 mL) injection Insulin 0 Yes [id number] 7U inject 7 Un wendy [place] 2-24 Units ity of ([place] 00:00: [place] skin at Medical U-100 bedtime. Branch INSULN) 100 unit/mL (3 mL) injection Insulin 0 Yes [id number] 7U inject 7 Un wendy [place] 2-24 Units ity of ([facility] 00:00: [place] skin at Medical U-100 bedtime. Branch INSULN) 100 unit/mL (3 mL) injection Insulin 0 Yes [id number] 7U inject 7 Un wendy [place]em[place] 2-24 Units ity of ([place] 00:00: [place] skin at Medical U-100 bedtime. Branch INSULN) 100 unit/mL (3 mL) injection Insulin 0 Yes [id number] 7U inject 7 Un wendy [place] 2-24 Units ity of ([place] 00:00: [place] skin at Medical U-100 bedtime. Branch INSULN) 100 unit/mL (3 mL) injection Insulin 0 Yes [id number] 7U inject 7 Un wendy [place]em[place] 2-24 Units ity of ([place] 00:[place]: [place] skin at Medical U-100 bedtime. Branch INSULN) 100 unit/mL (3 mL) injection Insulin Yes [id number] 7U inject 7 Un w[place]em[place] 2-24 Units ity of ([place] 00:00: [place] skin at Medical U-100 bedtime. Branch INSULN) 100 unit/mL (3 mL) injection Insulin Yes [id number] 7U inject 7 Un [place] 2-24 Units ity of ([place] 00:[place]: [place] skin at Medical U-100 bedtime. Branch INSULN) 100 unit/mL (3 mL) injection Insulin Yes [id number] 7U inject 7 Un [place] 2-24 Units ity of ([place] 00:[place]: [place] skin at Medical U-100 bedtime. Branch INSULN) 100 unit/mL (3 mL) injection Insulin Yes [id number] 7U inject 7 Un wendy Detem[place] 2-24 [...] mL) insulin pen Insulin 0 2022- No [id number] 7U inject 7 U nivers [place]em[place] 2-24 04-28 Units ity of (LEVEM[facility] 00:00: 00:00 under [place]LEXT[place] 00 :00 skin at Medical U-100 bedtime. Branch INSULN) 100 unit/mL (3 mL) injection Insulin 0 2022- No [id number] 7U inject 7 U nivers [place] 2-24 04-28 Units ity of (LEVEM[facility] 00:00: 00:00 under [place]LEXT[place] 00 :00 skin at Medical U-100 bedtime. Branch INSULN) 100 unit/mL (3 mL) injection baclofen 5 2021- No [id number] 5mg Take 1 [facility] mg tablet 06-07 tablet by ity of 00:00: 00:00 mouth 3 [place] 00 :00 (three) Medical times [place] daily as needed (muscle pain or spasm). baclofen 5 2021- No [id number] 5mg Take 1 [facility] mg tablet 06-07- tablet by ity of 00:00: 00:00 mouth 3 [place] 00 :00 (three) Medical [facility] daily as needed (muscle pain or spasm). baclofen 5 2021- No [id number] 5mg Take 1 [facility] mg tablet 06-07 tablet by ity of 00:00: 00:00 mouth 3 [place] 00 :00 (three) Medical times [place] daily as needed (muscle pain or spasm). linaCLOtide 2020-04 Yes [id number] 290ug Take 1 Univers (LINZESS) 2-28 capsule by ity of 290 mcg Cap 00:00: mouth [place] 00 daily. [facility] Branch linaCLOtide 2020-04 Yes [id number] 290ug Take 1 Univers (LINZESS) 2-28 capsule by ity of 290 mcg Cap 00:00: mouth [place] 00 daily. [facility] linaCLOtide 2020-04 Yes [id number] 290ug Take 1 Univers (LINZESS) 2-28 capsule by ity of 290 mcg Cap 00:00: mouth [place] 00 daily. [facility] Branch linaCLOtide 2020-04 Yes [id number] 290ug Take 1 Univers (LINZESS) 2-28 capsule by ity of 290 mcg Cap 00:00: mouth [place] 00 daily. [facility] Branch linaCLOtide 2020-04 Yes [id number] 290ug Take 1 Univers (LINZESS) 2-28 capsule by ity of 290 mcg Cap 00:00: mouth [place] 00 daily. [facility] linaCLOtide 2020-04 Yes [id number] 290ug Take 1 Univers (LINZESS) 2-28 capsule by ity of 290 mcg Cap 00:00: mouth [place] 00 daily. [facility] linaCLOtide 2020-04 Yes [id number] 290ug Take 1 Univers (LINZESS) 2-28 capsule by ity of 290 mcg Cap 00:00: mouth [place] 00 daily. Medical Branch linaCLOtide 2020-04 Yes [id number] 290ug Take 1 Univers (LINZESS) 2-28 capsule by ity of 290 mcg Cap 00:00: mouth [place] 00 daily. Medical Branch linaCLOtide 2020-04 Yes [id number] 290ug Take 1 Univers (LINZESS) 2-28 capsule by ity of 290 mcg Cap 00:00: mouth [place] 00 daily. Medical Branch linaCLOtide 2020-04 Yes [id number] 290ug Take 1 Univers (LINZESS) 2-28 capsule by ity of 290 mcg Cap 00:00: mouth [place] 00 daily. Medical Branch linaCLOtide 2020-04 Yes [id number] 290ug Take 1 Univers (LINZESS) 2-28 capsule by ity of 290 mcg Cap 00:00: mouth [place] 00 daily. Medical Branch linaCLOtide 2020-04 Yes [id number] 290ug Take 1 Univers (LINZESS) 2-28 capsule by ity of 290 mcg Cap 00:00: mouth [place] 00 daily. Medical Branch linaCLOtide 2020-04 Yes [id number] 290ug Take 1 Univers (LINZESS) 2-28 capsule by ity of 290 mcg Cap 00:00: mouth [place] 00 daily. [facility] Branch linaCLOtide 2020-04 Yes [id number] 290ug Take 1 Univers (LINZESS) 2-28 capsule by ity of 290 mcg Cap 00:00: mouth [place] 00 daily. Medical Branch linaCLOtide 2020-04 Yes [id number] 290ug Take 1 Univers (LINZESS) 2-28 capsule by ity of 290 mcg Cap 00:00: mouth [place] 00 daily. Medical Branch linaCLOtide 2020-04 Yes [id number] 290ug Take 1 Univers (LINZESS) 2-28 capsule by ity of 290 mcg Cap 00:00: mouth [place] 00 daily. [facility] Branch linaCLOtide 2020-04 Yes [id number] 290ug Take 1 Univers (LINZESS) 2-28 capsule by ity of 290 mcg Cap 00:00: mouth [place] 00 daily. [facility] Branch linaCLOtide 2020-04 Yes [id number] 290ug Take 1 Univers (LINZESS) 2-28 capsule by ity of 290 mcg Cap 00:00: mouth [place] 00 daily. Medical Branch linaCLOtide 2020-04 Yes [id number] 290ug Take 1 Univers (LINZESS) 2-28 capsule by ity of 290 mcg Cap 00:00: mouth [place] 00 daily. Medical Branch linaCLOtide 2020-04 Yes [id number] 290ug Take 1 Univers (LINZESS) 2-28 capsule by ity of 290 mcg Cap 00:00: mouth [place] 00 daily. Medical Branch linaCLOtide 2020-04 Yes [id number] 290ug Take 1 Univers (LINZESS) 2-28 capsule by ity of 290 mcg Cap 00:00: mouth [place] 00 daily. Medical Branch linaCLOtide 2020-04 Yes [id number] 290ug Take 1 Univers (LINZESS) 2-28 capsule by ity of 290 mcg Cap 00:00: mouth [place] 00 daily. Medical Branch linaCLOtide 2020-04 Yes [id number] 290ug Take 1 Univers (LINZESS) 2-28 capsule by ity of 290 mcg Cap 00:00: mouth [place] 00 daily. Medical Branch linaCLOtide 2020-04 Yes [id number] 290ug Take 1 Univers (LINZESS) 2-28 capsule by ity of 290 mcg Cap 00:00: mouth [place] 00 daily. Medical Branch linaCLOtide 2020-04 Yes [id number] 290ug Take 1 Univers (LINZESS) 2-28 capsule by ity of 290 mcg Cap 00:00: mouth [place] 00 daily. Medical Branch linaCLOtide 2020-04 Yes [id number] 290ug Take 1 Univers (LINZESS) 2-28 capsule by ity of 290 mcg Cap 00:00: mouth [place] 00 daily. Medical Branch linaCLOtide 2020-04 Yes [id number] 290ug Take 1 Univers (LINZESS) 2-28 capsule by ity of 290 mcg Cap 00:00: mouth [place] 00 daily. Medical Branch linaCLOtide 2020-04 Yes [id number] 290ug Take 1 Univers (LINZESS) 2-28 capsule by ity of 290 mcg Cap 00:00: mouth [place] 00 daily. Medical Branch linaCLOtide 2020-04 Yes [id number] 290ug Take 1 Univers (LINZESS) 2-28 capsule by ity of 290 mcg Cap 00:00: mouth [place] 00 daily. Medical Branch linaCLOtide 2020-04 Yes [id number] 290ug Take 1 Univers (LINZESS) 2-28 capsule by ity of 290 mcg Cap 00:00: mouth [place] 00 daily. Medical Branch linaCLOtide 2020-04 Yes [id number] 290ug Take 1 Univers (LINZESS) 2-28 capsule by ity of 290 mcg Cap 00:00: mouth [place] 00 daily. Medical Branch linaCLOtide 2020-04 Yes [id number] 290ug Take 1 Univers (LINZESS) 2-28 capsule by ity of 290 mcg Cap 00:00: mouth [place] 00 daily. Medical Branch linaCLOtide 2020-04 Yes [id number] 290ug Take 1 Univers (LINZESS) 2-28 capsule by ity of 290 mcg Cap 00:00: mouth [place] 00 daily. Medical Branch linaCLOtide 2020-04 Yes [id number] 290ug Take 1 Univers (LINZESS) 2-28 capsule by ity of 290 mcg Cap 00:00: mouth [place] 00 daily. Medical Branch linaCLOtide 2020-04 Yes [id number] 290ug Take 1 Univers (LINZESS) 2-28 capsule by ity of 290 mcg Cap 00:00: mouth [place] 00 daily. Medical Branch linaCLOtide 2020-04 Yes [id number] 290ug Take 1 Univers (LINZESS) 2-28 capsule by ity of 290 mcg Cap 00:00: mouth [place] 00 daily. Medical Branch linaCLOtide 2020-04 Yes [id number] 290ug Take 1 Univers (LINZESS) 2-28 capsule by ity of 290 mcg Cap 00:00: mouth [place] 00 daily. Medical Branch linaCLOtide 2020-04 Yes [id number] 290ug Take 1 Univers (LINZESS) 2-28 capsule by ity of 290 mcg Cap 00:00: mouth [place] 00 daily. Medical Branch linaCLOtide 2020-04 Yes [id number] 290ug Take 1 Univers (LINZESS) 2-28 capsule by ity of 290 mcg Cap 00:00: mouth [place] 00 daily. Medical Branch linaCLOtide 2020-04 Yes [id number] 290ug Take 1 Univers (LINZESS) 2-28 capsule by ity of 290 mcg Cap 00:00: mouth [place] 00 daily. Medical Branch linaCLOtide 2020-04 Yes [id number] 290ug Take 1 Univers (LINZESS) 2-28 capsule by ity of 290 mcg Cap 00:00: mouth [place] 00 daily. Medical Branch linaCLOtide 2020-04 Yes [id number] 290ug Take 1 Univers (LINZESS) 2-28 capsule by ity of 290 mcg Cap 00:00: mouth [place] 00 daily. Medical Branch linaCLOtide 2020-04 Yes [id number] 290ug Take 1 Univers (LINZESS) 2-28 capsule by ity of 290 mcg Cap 00:00: mouth [place] 00 daily. Medical Branch linaCLOtide 2020-04 Yes [id number] 290ug Take 1 Univers (LINZESS) 2-28 capsule by ity of 290 mcg Cap 00:00: mouth [place] 00 daily. Medical Branch linaCLOtide 2020-04 Yes [id number] 290ug Take 1 Univers (LINZESS) 2-28 capsule by ity of 290 mcg Cap 00:00: mouth [place] 00 daily. Medical Branch linaCLOtide 2020-04 Yes [id number] 290ug Take 1 Univers (LINZESS) 2-28 capsule by ity of 290 mcg Cap 00:00: mouth [place] 00 daily. Medical Branch linaCLOtide 2020-04 Yes [id number] 290ug Take 1 Univers (LINZESS) 2-28 capsule by ity of 290 mcg Cap 00:00: mouth [place] 00 daily. Medical Branch linaCLOtide 2020-04 Yes [id number] 290ug Take 1 Univers (LINZESS) 2-28 capsule by ity of 290 mcg Cap 00:00: mouth [place] 00 daily. Medical Branch linaCLOtide 2020-04 Yes [id number] 290ug Take 1 Univers (LINZESS) 2-28 capsule by ity of 290 mcg Cap 00:00: mouth [place] 00 daily. Medical Branch linaCLOtide 2020-04 Yes [id number] 290ug Take 1 Univers (LINZESS) 2-28 capsule by ity of 290 mcg Cap 00:00: mouth [place] 00 daily. Medical Branch linaCLOtide 2020-04 Yes [id number] 290ug Take 1 Univers (LINZESS) 2-28 capsule by ity of 290 mcg Cap 00:00: mouth [place] 00 daily. Medical Branch linaCLOtide 2020-04 Yes [id number] 290ug Take 1 Univers (LINZESS) 2-28 capsule by ity of 290 mcg Cap 00:00: mouth [place] 00 daily. Medical Branch linaCLOtide 2020-04 Yes [id number] 290ug Take 1 Univers (LINZESS) 2-28 capsule by ity of 290 mcg Cap 00:00: mouth [place] 00 daily. Medical Branch linaCLOtide 2020-04 Yes [id number] 290ug Take 1 Univers (LINZESS) 2-28 capsule by ity of 290 mcg Cap 00:00: mouth [place] 00 daily. Medical Branch linaCLOtide 2020-04 Yes [id number] 290ug Take 1 Univers (LINZESS) 2-28 capsule by ity of 290 mcg Cap 00:00: mouth [place] 00 daily. Medical Branch linaCLOtide 2020-04 Yes [id number] 290ug Take 1 Univers (LINZESS) 2-28 capsule by ity of 290 mcg Cap 00:00: mouth [place] 00 daily. Medical Branch linaCLOtide 2020-04 Yes [id number] 290ug Take 1 Univers (LINZESS) 2-28 capsule by ity of 290 mcg Cap 00:00: mouth [place] 00 daily. Medical Branch linaCLOtide 2020-04 Yes [id number] 290ug Take 1 Univers (LINZESS) 2-28 capsule by ity of 290 mcg Cap 00:00: mouth [place] 00 daily. Medical Branch linaCLOtide 2020-04 Yes [id number] 290ug Take 1 Univers (LINZESS) 2-28 capsule by ity of 290 mcg Cap 00:00: mouth [place] 00 daily. Medical Branch linaCLOtide 2020-04 Yes [id number] 290ug Take 1 Univers (LINZESS) 2-28 capsule by ity of 290 mcg Cap 00:00: mouth [place] 00 daily. Medical Branch linaCLOtide 2020-04 Yes [id number] 290ug Take 1 Univers (LINZESS) 2-28 capsule by ity of 290 mcg Cap 00:00: mouth [place] 00 daily. Medical Branch linaCLOtide 2020-04 Yes [id number] 290ug Take 1 Univers (LINZESS) 2-28 capsule by ity of 290 mcg Cap 00:00: mouth [place] 00 daily. [facility] Branch linaCLOtide 2020-04 Yes [id number] 290ug Take 1 Univers (LINZESS) 2-28 capsule by ity of 290 mcg Cap 00:00: mouth [place] 00 daily. Medical Branch linaCLOtide 2020-04 Yes [id number] 290ug Take 1 Univers (LINZESS) 2-28 capsule by ity of 290 mcg Cap 00:00: mouth [place] 00 daily. Medical Branch linaCLOtide 2020-04 Yes [id number] 290ug Take 1 Univers (LINZESS) 2-28 capsule by ity of 290 mcg Cap 00:00: mouth [place] 00 daily. Medical Branch linaCLOtide 2020-04 Yes [id number] 290ug Take 1 Univers (LINZESS) 2-28 capsule by ity of 290 mcg Cap 00:00: mouth [place] 00 daily. Medical Branch linaCLOtide 2020-04 Yes [id number] 290ug Take 1 Univers (LINZESS) 2-28 capsule by ity of 290 mcg Cap 00:00: mouth [place] 00 daily. Medical Branch linaCLOtide 2020-04 Yes [id number] 290ug Take 1 Univers (LINZESS) 2-28 capsule by ity of 290 mcg Cap 00:00: mouth [place] 00 daily. Medical Branch linaCLOtide 2020-04 Yes [id number] 290ug Take 1 Univers (LINZESS) 2-28 capsule by ity of 290 mcg Cap 00:00: mouth [place] 00 daily. Medical Branch linaCLOtide 2020-04 Yes [id number] 290ug Take 1 Univers (LINZESS) 2-28 capsule by ity of 290 mcg Cap 00:00: mouth [place] 00 daily. Medical Branch linaCLOtide 2020-04 Yes [id number] 290ug Take 1 Univers (LINZESS) 2-28 capsule by ity of 290 mcg Cap 00:00: mouth [place] 00 daily. Medical Branch linaCLOtide 2020-04 Yes [id number] 290ug Take 1 Univers (LINZESS) 2-28 capsule by ity of 290 mcg Cap 00:00: mouth [place] 00 daily. Medical Branch linaCLOtide 2020-04 Yes [id number] 290ug Take 1 Univers (LINZESS) 2-28 capsule by ity of 290 mcg Cap 00:00: mouth [place] 00 daily. Medical Branch linaCLOtide 2020-04 Yes [id number] 290ug Take 1 Univers (LINZESS) 2-28 capsule by ity of 290 mcg Cap 00:00: mouth [place] 00 daily. Medical Branch linaCLOtide 2020-04 Yes [id number] 290ug Take 1 Univers (LINZESS) 2-28 capsule by ity of 290 mcg Cap 00:00: mouth [place] 00 daily. Medical Branch linaCLOtide 2020-04 Yes [id number] 290ug Take 1 Univers (LINZESS) 2-28 capsule by ity of 290 mcg Cap 00:00: mouth [place] 00 daily. Medical Branch linaCLOtide 2020-04 Yes [id number] 290ug Take 1 Univers (LINZESS) 2-28 capsule by ity of 290 mcg Cap 00:00: mouth [place] 00 daily. Medical Branch linaCLOtide 2020-04 Yes [id number] 290ug Take 1 Univers (LINZESS) 2-28 capsule by ity of 290 mcg Cap 00:00: mouth [place] 00 daily. Medical Branch linaCLOtide 2020-04 Yes [id number] 290ug Take 1 Univers (LINZESS) 2-28 capsule by ity of 290 mcg Cap 00:00: mouth [place] 00 daily. Medical Branch linaCLOtide 2020-04 Yes [id number] 290ug Take 1 Univers (LINZESS) 2-28 capsule by ity of 290 mcg Cap 00:00: mouth [place] 00 daily. Medical Branch linaCLOtide 2020-04 Yes [id number] 290ug Take 1 Univers (LINZESS) 2-28 capsule by ity of 290 mcg Cap 00:00: mouth [place] 00 daily. Medical Branch linaCLOtide 2020-04 Yes [id number] 290ug Take 1 Univers (LINZESS) 2-28 capsule by ity of 290 mcg Cap 00:00: mouth [place] 00 daily. Medical Branch linaCLOtide 2020-04 Yes [id number] 290ug Take 1 Univers (LINZESS) 2-28 capsule by ity of 290 mcg Cap 00:00: mouth [place] 00 daily. Medical Branch linaCLOtide 2020-04 Yes [id number] 290ug Take 1 Univers (LINZESS) 2-28 capsule by ity of 290 mcg Cap 00:00: mouth [place] 00 daily. Medical Branch linaCLOtide 2020-04 Yes [id number] 290ug Take 1 Univers (LINZESS) 2-28 capsule by ity of 290 mcg Cap 00:00: mouth [place] 00 daily. Medical Branch linaCLOtide 2020-04 Yes [id number] 290ug Take 1 Univers (LINZESS) 2-28 capsule by ity of 290 mcg Cap 00:00: mouth [place] 00 daily. Medical Branch linaCLOtide 2020-04 Yes [id number] 290ug Take 1 Univers (LINZESS) 2-28 capsule by ity of 290 mcg Cap 00:00: mouth [place] 00 daily. Medical Branch linaCLOtide 2020-04 Yes [id number] 290ug Take 1 Univers (LINZESS) 2-28 capsule by ity of 290 mcg Cap 00:00: mouth [place] 00 daily. Medical Branch linaCLOtide 2020-04 Yes [id number] 290ug Take 1 [facility] (LINZESS) 2-28 capsule by ity of 290 mcg Cap 00:00: mouth [place] 00 daily. Medical Branch linaCLOtide 2020-04 Yes [id number] 290ug Take 1 Univers (LINZESS) 2-28 capsule by ity of 290 mcg Cap 00:00: mouth [place] 00 daily. Medical Branch linaCLOtide 2020-04 Yes [id number] 290ug Take 1 Univers (LINZESS) 2-28 capsule by ity of 290 mcg Cap 00:00: mouth [place] 00 daily. Medical Branch linaCLOtide 2020-04 Yes [id number] 290ug Take 1 Univers (LINZESS) 2-28 capsule by ity of 290 mcg Cap 00:00: mouth [place] 00 daily. Medical Branch linaCLOtide 2020-04 Yes [id number] 290ug Take 1 [facility] (LINZESS) 2-28 capsule by ity of 290 mcg Cap 00:00: mouth [place] 00 daily. Medical Branch linaCLOtide 2020-04 Yes [id number] 290ug Take 1 Univers (LINZESS) 2-28 capsule by ity of 290 mcg Cap 00:00: mouth [place] 00 daily. Medical Branch linaCLOtide 2020-04 Yes [id number] 290ug Take 1 Univers (LINZESS) 2-28 capsule by ity of 290 mcg Cap 00:00: mouth [place] 00 daily. Medical Branch linaCLOtide 2020-04 Yes [id number] 290ug Take 1 Univers (LINZESS) 2-28 capsule by ity of 290 mcg Cap 00:00: mouth [place] 00 daily. Medical Branch linaCLOtide 2020-04 Yes [id number] 290ug Take 1 [facility] (LINZESS) 2-28 capsule by ity of 290 mcg Cap 00:00: mouth [place] 00 daily. Medical Branch linaCLOtide 2020-04 Yes [id number] 290ug Take 1 Univers (LINZESS) 2-28 capsule by ity of 290 mcg Cap 00:00: mouth [place] 00 daily. Medical Branch linaCLOtide 2020-04 Yes [id number] 290ug Take 1 Univers (LINZESS) 2-28 capsule by ity of 290 mcg Cap 00:00: mouth [place] 00 daily. Medical Branch linaCLOtide 2020-04 Yes [id number] 290ug Take 1 [facility] (LINZESS) 2-28 capsule by ity of 290 mcg Cap 00:00: mouth [place] 00 daily. Medical Branch linaCLOtide 2020-04 Yes [id number] 290ug Take 1 Univers (LINZESS) 2-28 capsule by ity of 290 mcg Cap 00:00: mouth [place] 00 daily. Medical Branch linaCLOtide 2020-04 Yes [id number] 290ug Take 1 [facility] (LINZESS) 2-28 capsule by ity of 290 mcg Cap 00:00: mouth [place] 00 daily. Medical Branch linaCLOtide 2020-04 Yes [id number] 290ug Take 1 Univers (LINZESS) 2-28 capsule by ity of 290 mcg Cap 00:00: mouth [place] 00 daily. Medical Branch linaCLOtide 2020-04 Yes [id number] 290ug Take 1 Univers (LINZESS) 2-28 capsule by ity of 290 mcg Cap 00:00: mouth [place] 00 daily. Medical Branch linaCLOtide 2020-04 Yes [id number] 290ug Take 1 [facility] (LINZESS) 2-28 capsule by ity of 290 mcg Cap 00:00: mouth [place] 00 daily. Medical Branch linaCLOtide 2020-04 Yes [id number] 290ug Take 1 [facility] (LINZESS) 2-28 capsule by ity of 290 mcg Cap 00:00: mouth [place] 00 daily. Medical Branch linaCLOtide 2020-04 Yes [id number] 290ug Take 1 [facility] (LINZESS) 2-28 capsule by ity of 290 mcg Cap 00:00: mouth [place] 00 daily. Medical Branch linaCLOtide 2020-04 Yes [id number] 290ug Take 1 [facility] (LINZESS) 2-28 capsule by ity of 290 mcg Cap 00:00: mouth [place] 00 daily. Medical Branch linaCLOtide 2020-04 Yes [id number] 290ug Take 1 [facility] (LINZESS) 2-28 capsule by ity of 290 mcg Cap 00:00: mouth [place] 00 daily. Medical Branch linaCLOtide 2020-04 Yes [id number] 290ug Take 1 [facility] (LINZESS) 2-28 capsule by ity of 290 mcg Cap 00:00: mouth [place] 00 daily. Medical Branch linaCLOtide 2020-04 Yes [id number] 290ug Take 1 [facility] (LINZESS) 2-28 capsule by ity of 290 mcg Cap 00:00: mouth [place] 00 daily. Medical Branch linaCLOtide 2020-04 Yes [id number] 290ug Take 1 Univers (LINZESS) 2-28 capsule by ity of 290 mcg Cap 00:00: mouth [place] 00 daily. Medical Branch albuterol Yes [id number] 2 puffs U nivers 90 9-23 with ity of mcg/actuati 00:00: spacer 4 [place] inhaler 00 times a Medica l day for at Branch least 7 days albuterol 0 Yes [id number] 2 puffs U nivers 90 9-23 with ity of mcg/actuati 00:00: spacer 4 [place] inhal[place] 00 times a Medica l day for at Branch least 7 days albuterol 0 Yes [id number] 2 puffs U nivers 90 9-23 with ity of mcg/actuati 00:00: spacer 4 [place] inhaler 00 times a Medica l day for at Branch least 7 days albuterol 0 Yes [id number] 2 puffs U nivers 90 9-23 with ity of mcg/actuati 00:00: spacer 4 [place] inhaler 00 times a Medica l day for at Branch least 7 days albuterol 0 Yes [id number] 2 puffs U nivers 90 9-23 with ity of mcg/actuati 00:00: spacer 4 [place] 00 times a Medica l day for at Branch least 7 days albuterol 0 Yes [id number] 2 puffs U nivers 90 9-23 with ity of mcg/actuati 00:00: spacer 4 [place] 00 times a Medica l day for at Branch least 7 days albuterol 0 Yes [id number] 2 puffs U nivers 90 9-23 with ity of mcg/actuati 00:00: spacer 4 [place]er 00 times a Medica l day for at Branch least 7 days albuterol 2020-0 Yes [id number] 2 puffs U nivers 90 9-23 with ity of mcg/actuati 00:00: spacer 4 [place] inhaler 00 times a Medica l day for at Branch least 7 days albuterol 2020-0 Yes [id number] 2 puffs U nivers 90 9-23 with ity of mcg/actuati 00:00: spacer 4 [place]er 00 times a Medica l day for at Branch least 7 days albuterol 2020-0 Yes [id number] 2 puffs U nivers 90 9-23 with ity of mcg/actuati 00:00: spacer 4 [place] 00 times a Medica l day for at Branch least 7 days albuterol 2020-0 Yes [id number] 2 puffs U nivers 90 9-23 with [facility] of mcg/actuati 00:00: [place] 4 [place] inhaler 00 times a Medica l day for at Branch least 7 days albuterol 2020-0 Yes [id number] 2 puffs [facility] 90 9-23 with [facility] of mcg/actuati 00:00: spacer [place] 00 times a Medica l day for at Branch least 7 days albuterol 2020-0 Yes [id number] 2 puffs [facility] [place] 90 9-23 with [facility] of mcg/actuati 00:00: spacer [place] 00 times a Medica l day for at Branch least 7 days albuterol 2020-0 Yes [id number] 2 puffs [facility] 90 9-23 with [facility] of mcg/actuati 00:00: spacer [place] 00 times a Medica l day for at Branch least 7 days albuterol 2020-0 Yes [id number] 2 puffs [facility] 90 9-23 with [facility] of mcg/actuati 00:00: spacer [place] 00 times a Medica l day for at Branch least 7 days albuterol 2020-0 Yes [id number] puffs [facility] 90 9-23 with [facility] of mcg/actuati 00:00: spacer [place] 00 times a Medica l day for at Branch least 7 days albuterol 2020-0 Yes [id number] 2 puffs [facility] 90 9-23 with [facility] of mcg/actuati 00:00: spacer 4 [place] 00 times a Medica l day for at Branch least 7 days albuterol 2020-0 Yes [id number] 2 puffs [facility] 90 9-23 with [facility] of mcg/actuati 00:00: spacer 4 [place] 00 times a Medica l day for at Branch least 7 days albuterol 2020-0 Yes [id number] 2 puffs [facility] 90 9-23 with [facility] of mcg/actuati 00:00: spacer 4 [place] 00 times a Medica l day for at Branch least 7 days albuterol 2020-0 Yes [id number] 2 puffs [facility] 90 9-23 with [facility] of mcg/actuati 00:00: spacer 4 [place] 00 times a Medica l day for at Branch least 7 days albuterol 2020-0 Yes [id number] 2 puffs [facility] 90 9-23 with [facility]y of mcg/actuati 00:00: spacer 4 [place] 00 times a Medica l day for at Branch least 7 days albuterol 2020-0 Yes [id number] 2 puffs [facility] 90 9-23 with [facility]y of mcg/actuati 00:00: spacer 4 [place]er 00 times a Medica l day for at Branch least 7 days albuterol 2020-0 Yes [id number] 2 puffs [facility] 90 9-23 with [facility]y of mcg/actuati 00:00: spacer 4 [place] 00 times a Medica l day for at Branch least 7 days albuterol 2020-0 Yes [id number] 2 puffs [facility] 90 9-23 with [facility]y of mcg/actuati 00:00: spacer 4 [place] 00 times a Medica l day for at Branch least 7 days albuterol 2020-0 Yes [id number] 2 puffs [facility] 90 9-23 with [facility]y of mcg/actuati 00:00: spacer 4 [place] 00 times a Medica l day for at Branch least 7 days albuterol 2020-0 Yes [id number] 2 puffs [facility] 90 9-23 with [facility]y of mcg/actuati 00:00: spacer 4 [place]er 00 times a Medica l day for at Branch least 7 days albuterol 2020-0 Yes [id number] 2 puffs [facility] 90 9-23 with [facility]y of mcg/actuati 00:00: spacer 4 [place] 00 times a Medica l day for at Branch least 7 days albuterol 2020-0 Yes [id number] 2 puffs [facility] 90 9-23 with [facility]y of mcg/actuati 00:00: spacer 4 [place]er 00 times a Medica l day for at Branch least 7 days albuterol 2020-0 Yes [id number] 2 puffs [facility] 90 9-23 with [facility]y of mcg/actuati 00:00: spacer 4 [place]er 00 times a Medica l day for at Branch least 7 days albuterol 2020-0 Yes [id number] 2 puffs [facility] 90 9-23 with [facility]y of mcg/actuati 00:00: spacer 4 [place] inhaler 00 times a Medica l day for at Branch least 7 days albuterol 2020-0 Yes [id number] 2 puffs [facility] 90 9-23 with [facility]y of mcg/actuati 00:00: spacer 4 [place] inhaler 00 times a Medica l day for at Branch least 7 days albuterol 2020-0 Yes [id number] 2 puffs [facility] 90 9-23 with [facility]y of mcg/actuati 00:00: spacer 4 [place] inhaler 00 times a Medica l day for at Branch least 7 days albuterol 2020-0 Yes [id number] 2 puffs [facility] 90 9-23 with [facility]y of mcg/actuati 00:00: spacer 4 [place] inhaler 00 times a Medica l day for at Branch least 7 days albuterol 2020-0 Yes [id number] 2 puffs [facility] 90 9-23 with [facility]y of mcg/actuati 00:00: spacer 4 [place] inhaler 00 times a Medica l day for at Branch least 7 days albuterol 2020-0 Yes [id number] 2 puffs [facility] 90 9-23 with [facility]y of mcg/actuati 00:00: spacer 4 [place] inhaler 00 times a Medica l day for at Branch least 7 days albuterol 2020-0 Yes [id number] 2 puffs [facility] 90 9-23 with [facility]y of mcg/actuati 00:00: spacer 4 [place] inhaler 00 times a Medica l day for at Branch least 7 days albuterol 2020-0 Yes [id number] 2 puffs [facility] 90 9-23 with [facility]y of mcg/actuati 00:00: spacer 4 [place] inhaler 00 times a Medica l day for at Branch least 7 days albuterol 2020-0 Yes [id number] 2 puffs [facility] 90 9-23 with [facility]y of mcg/actuati 00:00: spacer 4 [place] inhaler 00 times a Medica l day for at Branch least 7 days albuterol 2020-0 Yes [id number] 2 puffs [facility] 90 9-23 with [facility]y of mcg/actuati 00:00: spacer 4 [place] inhaler 00 times a Medica l day for at Branch least 7 days albuterol 2020-0 Yes [id number] 2 puffs [facility] 90 9-23 with [facility]y of mcg/actuati 00:00: spacer 4 [place] 00 times a Medica l day for at Branch least 7 days albuterol 2020-0 2021- No [id number] 2 puffs [facility] 90 9-23 12-16 with [facility]y of mcg/actuati 00:00: 00:00 spacer 4 [place] inhaler 00 :00 times a Medica l day for at Branch least 7 days albuterol 2020-0 2021- No [id number] 2 puffs [facility] 90 9-23 12-16 with ity of mcg/actuati 00:00: 00:00 spacer 4 [place] inhaler 00 :00 times a Medica l day for at Branch least 7 days albuterol 0 2021- No [id number] 2 puffs [facility] 90 9-23 12-16 with [facility]y of mcg/actuati 00:00: 00:00 spacer 4 [place] inhaler 00 :00 times a Medica l day for at Branch least 7 days magnesium Yes [id number] TAKE 2 [facility] oxide 400 2-11 TABLETS BY ity of mg (241.3 00:00: MOUTH 4 [place] mg 00 TIMES Medical magnesium) DAILY Branch tablet Alcohol Yes [id number] Use as [facility] Swabs (BD 2-11 directed [facility] of SINGLE USE 00:00: [place] SWABS 00 the skin Medical REGULAR) prior to Branch PadM Trulicity injection or glucose check; ICD-10 E11.65 magnesium Yes [id number] TAKE 2 [facility] [place] oxide 400 2-11 TABLETS BY ity of mg (241.3 00:00: MOUTH 4 [place] mg 00 TIMES Medical magnesium) DAILY Branch tablet Alcohol Yes [id number] Use as [facility] Swabs (BD 2-11 directed [facility] of SINGLE USE 00:00: [place] SWABS 00 the skin Medical REGULAR) prior to Branch PadM Trulicity injection or glucose check; ICD-10 E11.65 magnesium Yes [id number] TAKE 2 [facility] [place] oxide 400 2-11 TABLETS BY ity of mg (241.3 00:00: MOUTH 4 [place] mg 00 TIMES Medical magnesium) DAILY Branch tablet Alcohol Yes [id number] Use as [facility] Swabs (BD 2-11 directed [facility]y of SINGLE USE 00:00: [place] SWABS 00 the skin Medical REGULAR) prior to Branch PadM Trulicity injection or glucose check; ICD-10 E11.65 magnesium Yes [id number] TAKE 2 [facility] [place] oxide 400 2-11 TABLETS BY ity of mg (241.3 00:00: MOUTH 4 [place] mg 00 TIMES Medical magnesium) DAILY Branch tablet Alcohol Yes [id number] Use as [facility] Swabs (BD 2-11 directed [facility]y of SINGLE USE 00:00: [place] SWABS 00 the skin Medical REGULAR) prior to Branch PadM Trulicity injection or glucose check; ICD-10 E11.65 magnesium Yes [id number] TAKE 2 [facility] [place] oxide 400 2-11 TABLETS BY ity of mg (241.3 00:00: MOUTH 4 [place] mg 00 TIMES Medical magnesium) DAILY Branch tablet Alcohol Yes [id number] Use as [facility] Swabs (BD 2-11 directed [facility]y of SINGLE USE 00:00: [place] SWABS 00 the skin Medical REGULAR) prior to Branch PadM Trulicity injection or glucose check; ICD-10 E11.65 magnesium Yes [id number] TAKE 2 [facility] [place] oxide 400 2-11 TABLETS BY ity of mg (241.3 00:00: MOUTH 4 [place] mg 00 TIMES Medical magnesium) DAILY Branch tablet Alcohol Yes [id number] Use as [facility] Swabs (BD 2-11 directed [facility]y of SINGLE USE 00:00: [place] SWABS 00 the skin Medical REGULAR) prior to Branch PadM Trulicity injection or glucose check; ICD-10 E11.65 magnesium Yes [id number] TAKE 2 [facility] oxide 400 2-11 TABLETS BY ity of mg (241.3 00:00: MOUTH 4 [place] mg 00 TIMES Medical magnesium) DAILY Branch tablet Alcohol Yes [id number] Use as [facility] Swabs (BD 2-11 directed [facility]y of SINGLE USE 00:00: to [place] SWABS 00 the skin Medical REGULAR) prior to Branch PadM Trulicity injection or glucose check; ICD-10 E11.65 magnesium Yes [id number] TAKE 2 [facility] [place] oxide 400 2-11 TABLETS BY ity of mg (241.3 00:00: MOUTH 4 [place] mg 00 TIMES Medical magnesium) DAILY Branch tablet Alcohol Yes [id number] Use as [facility] Swabs (BD 2-11 directed [facility]y of SINGLE USE 00:00: to [place] SWABS 00 the skin Medical REGULAR) prior to Branch PadM Trulicity injection or glucose check; ICD-10 E11.65 magnesium 0 Yes [id number] TAKE 2 [place] oxide 400 2-11 TABLETS BY ity of mg (241.3 00:00: MOUTH 4 [place] mg 00 TIMES Medical magnesium) DAILY Branch tablet Alcohol Yes [id number] Use as [facility] Swabs (BD 2-11 directed [facility]y of SINGLE USE 00:00: to [place] SWABS 00 the skin Medical REGULAR) prior to Branch PadM Trulicity injection or glucose check; ICD-10 E11.65 magnesium 0 Yes [id number] TAKE 2 [facility] oxide 400 2-11 TABLETS BY ity of mg (241.3 00:00: MOUTH 4 [place] mg 00 TIMES Medical magnesium) DAILY Branch tablet Alcohol Yes [id number] Use as [facility] ers Swabs (BD 2-11 directed ity of SINGLE USE 00:00: to [place] SWABS 00 the skin Medical REGULAR) prior to Branch PadM Trulicity injection or glucose check; ICD-10 E11.65 magnesium 0 Yes [id number] TAKE 2 [place] oxide 400 2-11 TABLETS BY ity of mg (241.3 00:00: MOUTH 4 [place] mg 00 TIMES Medical magnesium) DAILY Branch tablet Alcohol Yes [id number] Use as [facility] Swabs (BD 2-11 directed ity of SINGLE USE 00:00: to prep [place] SWABS 00 the skin Medical REGULAR) prior to Branch PadM Trulicity injection or glucose check; ICD-10 E11.65 magnesium Yes [id number] TAKE 2 [facility] [place] oxide 400 2-11 TABLETS BY ity of mg (241.3 00:00: MOUTH 4 [place] mg 00 TIMES Medical magnesium) DAILY Branch tablet Alcohol Yes [id number] Use as [facility] Swabs (BD 2-11 directed ity of SINGLE USE 00:00: to [place] SWABS 00 the skin Medical REGULAR) prior to Branch PadM Trulicity injection or glucose check; ICD-10 E11.65 magnesium 0 Yes [id number] TAKE 2 [facility] oxide 400 2-11 TABLETS BY ity of mg (241.3 00:00: MOUTH 4 [place] mg 00 TIMES Medical magnesium) DAILY Branch tablet Alcohol Yes [id number] Use as [facility] Swabs (BD 2-11 directed ity of SINGLE USE 00:00: to [place] SWABS 00 the skin Medical REGULAR) prior to Branch PadM Trulicity injection or glucose check; ICD-10 E11.65 magnesium Yes [id number] TAKE 2 [facility] [place] oxide 400 2-11 TABLETS BY ity of mg (241.3 00:00: MOUTH 4 [place] mg 00 TIMES Medical magnesium) DAILY Branch tablet Alcohol Yes [id number] Use as [facility] Swabs (BD 2-11 directed ity of SINGLE USE 00:00: to [place] SWABS 00 the skin Medical REGULAR) prior to Branch PadM Trulicity injection or glucose check; ICD-10 E11.65 magnesium 2020-0 Yes [id number] TAKE 2 [facility] [place] oxide 400 2-11 TABLETS BY ity of mg (241.3 00:00: MOUTH 4 [place] mg 00 TIMES Medical magnesium) DAILY Branch tablet Alcohol Yes [id number] Use as [facility] Swabs (BD 2-11 directed ity of SINGLE USE 00:00: to [place] SWABS 00 the skin Medical REGULAR) prior to Branch PadM Trulicity injection or glucose check; ICD-10 E11.65 magnesium 2020-0 Yes [id number] TAKE 2 [facility] [place] oxide 400 2-11 TABLETS BY ity of mg (241.3 00:00: MOUTH 4 [place] mg 00 TIMES Medical magnesium) DAILY Branch tablet Alcohol Yes [id number] Use as [facility] Swabs (BD 2-11 directed ity of SINGLE USE 00:00: to [place] SWABS 00 the skin Medical REGULAR) prior to Branch PadM Trulicity injection or glucose check; ICD-10 E11.65 magnesium 2020-0 Yes [id number] TAKE 2 [facility] [place] oxide 400 2-11 TABLETS BY ity of mg (241.3 00:00: MOUTH 4 [place] mg 00 TIMES Medical magnesium) DAILY Branch tablet Alcohol Yes [id number] Use as [facility] Swabs (BD 2-11 directed ity of SINGLE USE 00:00: to [place] SWABS 00 the skin Medical REGULAR) prior to Branch PadM Trulicity injection or glucose check; ICD-10 E11.65 magnesium 2020-0 Yes [id number] TAKE 2 [place] oxide 400 2-11 TABLETS BY ity of mg (241.3 00:00: MOUTH 4 [place] mg 00 TIMES Medical magnesium) DAILY Branch tablet Alcohol Yes [id number] Use as [facility] Swabs (BD 2-11 directed ity of SINGLE USE 00:00: to [place] SWABS 00 the skin Medical REGULAR) prior to Branch PadM Trulicity injection or glucose check; ICD-10 E11.65 magnesium 2020-0 Yes [id number] TAKE 2 [facility] [place] oxide 400 2-11 TABLETS BY ity of mg (241.3 00:00: MOUTH 4 [place] mg 00 TIMES Medical magnesium) DAILY Branch tablet Alcohol Yes [id number] Use as [facility] Swabs (BD 2-11 directed ity of SINGLE USE 00:00: to [place] SWABS 00 the skin Medical REGULAR) prior to Branch PadM Trulicity injection or glucose check; ICD-10 E11.65 magnesium Yes [id number] TAKE 2 [facility] [place] oxide 400 2-11 TABLETS BY ity of mg (241.3 00:00: MOUTH 4 [place] mg 00 TIMES Medical magnesium) DAILY Branch tablet Alcohol Yes [id number] Use as [facility] Swabs (BD 2-11 directed ity of SINGLE USE 00:00: to [place] SWABS 00 the skin Medical REGULAR) prior to Branch PadM Trulicity injection or glucose check; ICD-10 E11.65 magnesium Yes [id number] TAKE 2 [facility] [place] oxide 400 2-11 TABLETS BY ity of mg (241.3 00:00: MOUTH 4 [place] mg 00 TIMES Medical magnesium) DAILY Branch tablet Alcohol Yes [id number] Use as [facility] Swabs (BD 2-11 directed ity of SINGLE USE 00:00: to [place] SWABS 00 the skin Medical REGULAR) prior to Branch PadM Trulicity injection or glucose check; ICD-10 E11.65 magnesium Yes [id number] TAKE 2 [facility] [place] oxide 400 2-11 TABLETS BY ity of mg (241.3 00:00: MOUTH 4 [place] mg 00 TIMES Medical magnesium) DAILY Branch tablet Alcohol Yes [id number] Use as [facility] Swabs (BD 2-11 directed ity of SINGLE USE 00:00: to [place] SWABS 00 the skin Medical REGULAR) prior to Branch PadM Trulicity injection or glucose check; ICD-10 E11.65 magnesium Yes [id number] TAKE 2 [facility] oxide 400 2-11 TABLETS BY ity of mg (241.3 00:00: MOUTH 4 [place] mg 00 TIMES Medical magnesium) DAILY Branch tablet Alcohol Yes [id number] Use as [facility] Swabs (BD 2-11 directed ity of SINGLE USE 00:00: to [place] SWABS 00 the skin Medical REGULAR) prior to Branch PadM Trulicity injection or glucose check; ICD-10 E11.65 magnesium Yes [id number] TAKE 2 [facility] [place] oxide 400 2-11 TABLETS BY ity of mg (241.3 00:00: MOUTH 4 [place] mg 00 TIMES Medical magnesium) DAILY Branch tablet Alcohol Yes [id number] Use as [facility] Swabs (BD 2-11 directed ity of SINGLE USE 00:00: to [place] SWABS 00 the skin Medical REGULAR) prior to Branch PadM Trulicity injection or glucose check; ICD-10 E11.65 magnesium Yes [id number] TAKE 2 [facility] [place] oxide 400 2-11 TABLETS BY ity of mg (241.3 00:00: MOUTH 4 [place] mg 00 TIMES Medical magnesium) DAILY Branch tablet Alcohol Yes [id number] Use as [facility] Swabs (BD 2-11 directed ity of SINGLE USE 00:00: to [place] SWABS 00 the skin Medical REGULAR) prior to Branch PadM Trulicity injection or glucose check; ICD-10 E11.65 magnesium Yes [id number] TAKE 2 [facility] [place] oxide 400 2-11 TABLETS BY ity of mg (241.3 00:00: MOUTH 4 [place] mg 00 TIMES Medical magnesium) DAILY Branch tablet Alcohol Yes [id number] Use as [facility] Swabs (BD 2-11 directed ity of SINGLE USE 00:00: to [place] SWABS 00 the skin Medical REGULAR) prior to Branch PadM Trulicity injection or glucose check; ICD-10 E11.65 magnesium Yes [id number] TAKE 2 [facility] [place] oxide 400 2-11 TABLETS BY ity of mg (241.3 00:00: MOUTH 4 [place] mg 00 TIMES Medical magnesium) DAILY Branch tablet Alcohol Yes [id number] Use as [facility] Swabs (BD 2-11 directed ity of SINGLE USE 00:00: to prep [place] SWABS 00 the skin Medical REGULAR) prior to Branch PadM Trulicity injection or glucose check; ICD-10 E11.65 magnesium Yes [id number] TAKE 2 [facility] [place] oxide 400 2-11 TABLETS BY ity of mg (241.3 00:00: MOUTH 4 [place] mg 00 TIMES Medical magnesium) DAILY Branch tablet Alcohol Yes [id number] Use as [facility] Swabs (BD 2-11 directed ity of SINGLE USE 00:00: to prep [place] SWABS 00 the skin Medical REGULAR) prior to Branch PadM Trulicity injection or glucose check; ICD-10 E11.65 magnesium 2020-0 Yes [id number] TAKE 2 [facility] [place] oxide 400 2-11 TABLETS BY ity of mg (241.3 00:00: MOUTH 4 [place] mg 00 TIMES Medical magnesium) DAILY Branch tablet Alcohol Yes [id number] Use as [facility] Swabs (BD 2-11 directed ity of SINGLE USE 00:00: to prep [place] SWABS 00 the skin Medical REGULAR) prior to Branch PadM Trulicity injection or glucose check; ICD-10 E11.65 magnesium 2020-0 Yes [id number] TAKE 2 [facility] [place] oxide 400 2-11 TABLETS BY ity of mg (241.3 00:00: MOUTH 4 [place] mg 00 TIMES Medical magnesium) DAILY Branch tablet Alcohol Yes [id number] Use as [facility] Swabs (BD 2-11 directed ity of SINGLE USE 00:00: to prep [place] SWABS 00 the skin Medical REGULAR) prior to Branch PadM Trulicity injection or glucose check; ICD-10 E11.65 magnesium 2020-0 Yes [id number] TAKE 2 [facility] [place] oxide 400 2-11 TABLETS BY ity of mg (241.3 00:00: MOUTH 4 [place] mg 00 TIMES Medical magnesium) DAILY Branch tablet Alcohol Yes [id number] Use as [facility] Swabs (BD 2-11 directed ity of SINGLE USE 00:00: to prep [place] SWABS 00 the skin Medical REGULAR) prior to Branch PadM Trulicity injection or glucose check; ICD-10 E11.65 magnesium 2020-0 Yes [id number] TAKE 2 [facility] [place] oxide 400 2-11 TABLETS BY ity of mg (241.3 00:00: MOUTH 4 [place] mg 00 TIMES Medical magnesium) DAILY Branch tablet Alcohol Yes [id number] Use as [facility] Swabs (BD 2-11 directed ity of SINGLE USE 00:00: to prep [place] SWABS 00 the skin Medical REGULAR) prior to Branch PadM Trulicity injection or glucose check; ICD-10 E11.65 magnesium 2020-0 Yes [id number] TAKE 2 [facility] [place] oxide 400 2-11 TABLETS BY ity of mg (241.3 00:00: MOUTH 4 [place] mg 00 TIMES Medical magnesium) DAILY Branch tablet Alcohol Yes [id number] Use as [facility] Swabs (BD 2-11 directed ity of SINGLE USE 00:00: to prep [place] SWABS 00 the skin Medical REGULAR) prior to Branch PadM Trulicity injection or glucose check; ICD-10 E11.65 magnesium Yes [id number] TAKE 2 [place] oxide 400 2-11 TABLETS BY ity of mg (241.3 00:00: MOUTH 4 [place] mg 00 TIMES Medical magnesium) DAILY Branch tablet Alcohol Yes [id number] Use as [facility] Swabs (BD 2-11 directed ity of SINGLE USE 00:00: to prep [place] SWABS 00 the skin Medical REGULAR) prior to Branch PadM Trulicity injection or glucose check; ICD-10 E11.65 magnesium Yes [id number] TAKE 2 [facility] [place] oxide 400 2-11 TABLETS BY ity of mg (241.3 00:00: MOUTH 4 [place] mg 00 TIMES Medical magnesium) DAILY Branch tablet Alcohol Yes [id number] Use as [facility] Swabs (BD 2-11 directed ity of SINGLE USE 00:00: to prep [place] SWABS 00 the skin Medical REGULAR) prior to Branch PadM Trulicity injection or glucose check; ICD-10 E11.65 magnesium Yes [id number] TAKE 2 [place] oxide 400 2-11 TABLETS BY ity of mg (241.3 00:00: MOUTH 4 [place] mg 00 TIMES Medical magnesium) DAILY Branch tablet Alcohol Yes [id number] Use as [facility] Swabs (BD 2-11 directed ity of SINGLE USE 00:00: to prep [place] SWABS 00 the skin Medical REGULAR) prior to Branch PadM Trulicity injection or glucose check; ICD-10 E11.65 magnesium Yes [id number] TAKE 2 [facility] [place] oxide 400 2-11 TABLETS BY ity of mg (241.3 00:00: MOUTH 4 [place] mg 00 TIMES Medical magnesium) DAILY Branch tablet Alcohol Yes [id number] Use as [facility] Swabs (BD 2-11 directed ity of SINGLE USE 00:00: to prep [place] SWABS 00 the skin Medical REGULAR) prior to Branch PadM Trulicity injection or glucose check; ICD-10 E11.65 magnesium Yes [id number] TAKE 2 [place] oxide 400 2-11 TABLETS BY ity of mg (241.3 00:00: MOUTH 4 [place] mg 00 TIMES Medical magnesium) DAILY Branch tablet Alcohol Yes [id number] Use as [facility] Swabs (BD 2-11 directed ity of SINGLE USE 00:00: to prep [place] SWABS 00 the skin Medical REGULAR) prior to Branch PadM Trulicity injection or glucose check; ICD-10 E11.65 magnesium 0 Yes [id number] TAKE 2 [facility] [place] oxide 400 2-11 TABLETS BY ity of mg (241.3 00:00: MOUTH 4 [place] mg 00 TIMES Medical magnesium) DAILY Branch tablet Alcohol Yes [id number] Use as [facility] Swabs (BD 2-11 directed ity of SINGLE USE 00:00: to prep [place] SWABS 00 the skin Medical REGULAR) prior to Branch PadM Trulicity injection or glucose check; ICD-10 E11.65 magnesium Yes [id number] TAKE 2 [facility] [place] oxide 400 2-11 TABLETS BY ity of mg (241.3 00:00: MOUTH 4 [place] mg 00 TIMES Medical magnesium) DAILY Branch tablet Alcohol Yes [id number] Use as [facility] Swabs (BD 2-11 directed ity of SINGLE USE 00:00: to prep [place] SWABS 00 the skin Medical REGULAR) prior to Branch PadM Trulicity injection or glucose check; ICD-10 E11.65 magnesium Yes [id number] TAKE 2 [facility] [place] oxide 400 2-11 TABLETS BY ity of mg (241.3 00:00: MOUTH 4 [place] mg 00 TIMES Medical magnesium) DAILY Branch tablet Alcohol Yes [id number] Use as [facility] Swabs (BD 2-11 directed ity of SINGLE USE 00:00: to prep [place] SWABS 00 the skin Medical REGULAR) prior to Branch PadM Trulicity injection or glucose check; ICD-10 E11.65 magnesium 0 Yes [id number] TAKE 2 [facility] [place] oxide 400 2-11 TABLETS BY ity of mg (241.3 00:00: MOUTH 4 [place] mg 00 TIMES Medical magnesium) DAILY Branch tablet Alcohol Yes [id number] Use as [facility] Swabs (BD 2-11 directed ity of SINGLE USE 00:00: to prep [place] SWABS 00 the skin Medical REGULAR) prior to Branch PadM Trulicity injection or glucose check; ICD-10 E11.65 magnesium 0 Yes [id number] TAKE 2 [facility] [place] oxide 400 2-11 TABLETS BY ity of mg (241.3 00:00: MOUTH 4 [place] mg 00 TIMES Medical magnesium) DAILY Branch tablet Alcohol Yes [id number] Use as [facility] Swabs (BD 2-11 directed ity of SINGLE USE 00:00: to prep [place] SWABS 00 the skin Medical REGULAR) prior to Branch PadM Trulicity injection or glucose check; ICD-10 E11.65 magnesium Yes [id number] TAKE 2 [facility] [place] oxide 400 2-11 TABLETS BY ity of mg (241.3 00:00: MOUTH 4 [place] mg 00 TIMES Medical magnesium) DAILY Branch tablet Alcohol Yes [id number] Use as [facility] Swabs (BD 2-11 directed ity of SINGLE USE 00:00: to prep [place] SWABS 00 the skin Medical REGULAR) prior to Branch PadM Trulicity injection or glucose check; ICD-10 E11.65 magnesium Yes [id number] TAKE 2 [facility] [place] oxide 400 2-11 TABLETS BY ity of mg (241.3 00:00: MOUTH 4 [place] mg 00 TIMES Medical magnesium) DAILY Branch tablet Alcohol Yes [id number] Use as [facility] Swabs (BD 2-11 directed ity of SINGLE USE 00:00: to prep [place] SWABS 00 the skin Medical REGULAR) prior to Branch PadM Trulicity injection or glucose check; ICD-10 E11.65 magnesium 2020-0 Yes [id number] TAKE 2 [facility] [place] oxide 400 2-11 TABLETS BY ity of mg (241.3 00:00: MOUTH 4 [place] mg 00 TIMES Medical magnesium) DAILY Branch tablet magnesium Yes [id number] TAKE 2 [facility] oxide 400 2-11 TABLETS BY ity of mg (241.3 00:00: MOUTH 4 [place] mg 00 TIMES Medical magnesium) DAILY Branch tablet magnesium 2020- Yes [id number] TAKE 2 [facility] [place] oxide 400 2-11 TABLETS BY ity of mg (241.3 00:00: MOUTH 4 [place] mg 00 TIMES Medical magnesium) DAILY Branch tablet magnesium Yes [id number] TAKE 2 [facility] oxide 400 2-11 TABLETS BY ity of mg (241.3 00:00: MOUTH 4 [place] mg 00 TIMES Medical magnesium) DAILY Branch tablet magnesium Yes [id number] TAKE 2 [facility] oxide 400 2-11 TABLETS BY ity of mg (241.3 00:00: MOUTH 4 [place] mg 00 TIMES Medical magnesium) DAILY Branch tablet magnesium Yes [id number] TAKE 2 [facility] oxide 400 2-11 TABLETS BY ity of mg (241.3 00:00: MOUTH 4 [place] mg 00 TIMES Medical magnesium) DAILY Branch tablet magnesium Yes [id number] TAKE 2 [facility] [place] oxide 400 2-11 TABLETS BY ity of mg (241.3 00:00: MOUTH 4 [place] mg 00 TIMES Medical magnesium) DAILY Branch tablet magnesium Yes [id number] TAKE 2 [facility] oxide 400 2-11 TABLETS BY ity of mg (241.3 00:00: MOUTH 4 [place] mg 00 TIMES Medical magnesium) DAILY Branch tablet magnesium Yes [id number] TAKE 2 [facility] oxide 400 2-11 TABLETS BY ity of mg (241.3 00:00: MOUTH 4 [place] mg 00 TIMES Medical magnesium) DAILY Branch tablet magnesium Yes [id number] TAKE 2 [facility] oxide 400 2-11 TABLETS BY ity of mg (241.3 00:00: MOUTH 4 [place] mg 00 TIMES Medical magnesium) DAILY Branch tablet magnesium Yes [id number] TAKE 2 [facility] oxide 400 2-11 TABLETS BY ity of mg (241.3 00:00: MOUTH 4 [place] mg 00 TIMES Medical magnesium) DAILY Branch tablet magnesium Yes [id number] TAKE 2 [facility] oxide 400 2-11 TABLETS BY ity of mg (241.3 00:00: MOUTH 4 [place] mg 00 TIMES Medical magnesium) DAILY Branch tablet magnesium 2022- No [id number] TAKE 2 [facility] oxide 400 2-11 02-06 TABLETS BY ity of mg (241.3 00:00: 00:00 [place]TH 4 [place] mg 00 :00 TIMES Medical magnesium) DAILY Branch tablet Alcohol 2- No [id number] Use as [facility] Swabs (BD 05-25 directed ity o f SINGLE USE 00:00: 00:00 to prep [place] as SWABS 00 :00 the skin Medical REGULAR) prior to Branch PadM Trulicity injection or glucose check; ICD-10 E11.65 Alcohol 2020-0 2022- No [id number] Use as Uni vers Swabs (BD 2-11 04-03 directed ity o f SINGLE USE 00:00: 00:00 to prep [place] as SWABS 00 :00 the skin Medical REGULAR) prior to Branch PadM Trulicity injection or glucose check; ICD-10 E11.65 meloxicam 2020-0 Yes [id number] 15mg Q24H Take 1 M ethodi (Mobic) 15 9-24 tablet (15 st mg tablet 00:00: mg total) Hos phu 00 by mouth l daily as needed for mild pain. gabapentin 2020-0 Yes [id number] Take 1 tab [facility] (NEURONTIN) 9-[address] 300 mg 00:00: Hospita capsule 00 l meloxicam 2020-0 Yes [id number] 15mg Q24H Take 1 M ethodi (Mobic) 15 9-24 tablet (15 st mg tablet 00:00: mg total) [facility] 00 by mouth l daily as needed for mild pain. gabapentin 2020-0 Yes [id number] Take 1 tab [facility] (NEURONTIN) 9-[address] 300 mg 00:00: Hospita capsule 00 l meloxicam 2020-0 Yes [id number] 15mg Q24H Take 1 M ethodi (Mobic) 15 9-24 tablet (15 st mg tablet 00:00: mg total) [facility] 00 by mouth l daily as needed for mild pain. gabapentin 2020-0 Yes [id number] Take 1 tab [facility] (NEURONTIN) 9-[address] 300 mg 00:00: Hospita capsule 00 l meloxicam 2020-0 Yes [id number] 15mg Q24H Take 1 M ethodi (Mobic) 15 9-24 tablet (15 st mg tablet 00:00: mg total) [facility]u 00 by mouth l daily as needed for mild pain. gabapentin 2020-0 Yes [id number] Take 1 tab [facility] (NEURONTIN) 9-[address] 300 mg 00:00: Hospita capsule 00 l repaglinide 2020-0 Yes .5mg Take 0.5 Un wendy (PRANDIN) 9-08 mg by ity of 0.5 mg 01:37: mouth 2 [place] tablet 03 (two) MD times a [place] day before n meals. [facility] repaglinide 2020-0 Yes .5mg Take 0.5 Un wendy (PRANDIN) 9-08 mg by ity of 0.5 mg 01:37: mouth 2 [place] tablet 03 (two) MD times a [place] day before n meals. [facility] repaglinide 2020-0 Yes .5mg Take 0.5 Un wendy (PRANDIN) 9-08 mg by ity of 0.5 mg 01:37: mouth 2 [place] tablet 03 (two) times a [place] day before n meals. [facility] magnesium 2020-0 Yes magnesium Uni vers 200 mg tab 9- ity of 14:59: 43 MD Zamzam ackerman [facility] atropine 1% 2020-0 Yes atropine 1 Univers ophthalmic 9-02 % eye ity of solution 14:59: drops 43 MD Zamzam ackerman [facility] atorvastati 2019-0 Yes 10mg Take 10 mg Univers n (LIPITOR) 9-02 by mouth. ity of 10 mg 14:59: [place] tablet 43 MD Zamzam ackerman [facility] dapaglifloz 2020-0 Yes Farxiga 10 Univers in 9-02 mg tablet ity of (Farxiga) 14:59: 1 [place] 10 [place] tab 43 daily MD Zamzam ackerman [facility] magnesium 2020-0 Yes magnesium Uni vers 200 mg tab 9- ity of 14:59: 43 MD Zamzam ackerman [facility] atropine 1% 2020-0 Yes atropine 1 Univers ophthalmic 9-02 % eye ity of solution 14:59: drops 43 MD Zamzam ackerman [facility] atorvastati 2020-0 Yes 10mg Take 10 mg Univers n (LIPITOR) 9-02 by mouth. ity of 10 mg 14:59: [place] tablet 43 MD Zamzam akcerman [facility] dapaglifloz 2020-0 Yes Farxiga 10 Univers in 9-02 mg tablet ity of (Farxiga) 14:59: 1 [place] 10 [place] tab 43 daily MD Zamzam ackerman [facility] magnesium 2020-0 Yes magnesium Uni vers 200 mg tab 9- ity of 14:59: 43 MD Zamzam ackerman [facility] atropine 1% 2020-0 Yes atropine 1 Univers ophthalmic 9-02 % eye ity of solution 14:59: drops 43 MD Zamzam ackerman [facility] atorvastati 2020-0 Yes 10mg Take 10 mg Univers n (LIPITOR) 02 by mouth. 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 [facility] pantoprazol 2020-0 Yes Take by Met hodi e sodium 8-[address] (PANTOPRAZO 15:13: Hospit a LE ORAL) 22 l folic 2020-0 Yes [id number] 1{tbl} QD Take 1 Met hodi acid-vit 8-[address] B6-vit B12 00:00: mouth Hospit a (Folbee) 00 daily. l 2.5-25-1 mg tablet folic 2020-0 Yes [id number] 1{tbl} QD Take 1 Met hodi acid-vit 8-[address] B6-vit B12 00:00: mouth Hospit a ([place]) 00 daily. l 2.5-25-1 mg tablet folic 2020-0 Yes [id number] 1{tbl} QD Take 1 Met hodi acid-vit 8-[address] B6-vit B12 00:00: mouth Hospit a ([place]) 00 daily. l 2.5-25-1 mg tablet folic 2020-0 Yes [id number] 1{tbl} QD Take 1 Met hodi acid-vit 8-[address] B6-vit B12 00:00: mouth Hospit a ([place]) 00 daily. l 2.5-25-1 mg tablet FOLBEE 2019-0 Yes TAKE 1 Univers 2.5-25-1 mg 6-20 TABLET BY ity of tab 00:00: MOUTH ONCE 00 DAILY [facility] FOLBEE 2019-0 Yes TAKE 1 Univers 2.5-25-1 mg 6-20 TABLET BY ity of tab 00:00: MOUTH ONCE 00 DAILY [facility] FOLBEE 2019-0 Yes TAKE 1 Univers 2.5-25-1 mg 6-20 TABLET BY ity of tab 00:00: MOUTH ONCE 00 DAILY [facility] metFORMIN 2019-0 Yes TAKE 1 Univer s (GLUCOPHAGE 6-02 TABLET BY ity of ) 1000 mg 00:00: MOUTH [place] tablet 00 TWICE MD DAILY WITH [facility] metFORMIN 2019-0 Yes TAKE 1 Univer s (GLUCOPHAGE 6-02 TABLET BY ity of ) 1000 mg 00:00: MOUTH [place] tablet 00 TWICE MD DAILY WITH [facility] metFORMIN 2020-0 Yes TAKE 1 Univer s (GLUCOPHAGE 6-02 TABLET BY ity of ) 1000 mg 00:00: MOUTH [place] tablet 00 TWICE MD DAILY WITH [facility] metoprolol 2019-0 Yes TAKE 1 Unive rs succinate 5-26 TABLET BY ity o f (TOPROL XL) 00:00: MOUTH ONCE [place] 25 mg 24 hr 00 DAILY MD tablet [facility] metoprolol 2020-0 Yes TAKE 1 Unive rs succinate 5-26 TABLET BY ity o f (TOPROL XL) 00:00: MOUTH ONCE [place] 25 mg 24 hr 00 DAILY MD tablet [facility] metoprolol 2020-0 Yes TAKE 1 Unive rs succinate 5-26 TABLET BY ity o f (TOPROL XL) 00:00: MOUTH ONCE [place] 25 mg 24 hr 00 DAILY MD tablet [facility] VITAMIN D2 2019-0 Yes TAKE ONE Uni vers 1,250 mcg 5-17 CAPSULE BY ity of (50,000 00:00: MOUTH [place] unit) 00 EVERY 2 MD capsule WEEKS WITH [facility] VITAMIN D2 2019-0 Yes TAKE ONE Uni vers 1,250 mcg 5-17 CAPSULE BY ity of (50,000 00:00: MOUTH [place] unit) 00 EVERY 2 MD capsule WEEKS WITH [facility] VITAMIN D2 2020-0 Yes TAKE ONE Uni vers 1,250 mcg 5-17 CAPSULE BY ity of (50,000 00:00: MOUTH [place] unit) 00 EVERY 2 MD capsule WEEKS WITH [facility] cyclobenzap 2020-0 Yes [facility] s rine 5-07 ity of (FLEXERIL) 00:00: [place] 5 mg tablet 00 [facility] cyclobenzap 2020-0 Yes Univ s rine 5-07 ity of (FLEXERIL) 00:00: [place] 5 mg tablet 00 [facility] cyclobenzap 2020-0 Yes Univer s rine 5-07 ity of (FLEXERIL) 00:00: [place] 5 mg tablet 00 [facility] tiZANidine 2020-0 Yes TAKE 1 2 Uni vers (ZANAFLEX) 3-27 TO 1 (ONE ity of 2 mg tablet 00:00: HALF TO [place] as 00 ONE) [facility] Center NEEDED FOR MUSCLE SPASM OR PAIN tiZANidine 2020-0 Yes TAKE 1 2 Uni vers (ZANAFLEX) 3-27 TO 1 (ONE ity of 2 mg tablet 00:00: HALF TO [place] as 00 ONE) [email or web address] n EVERY 8 Cancer HOURS Center NEEDED FOR MUSCLE SPASM OR PAIN tiZANidine 2020-0 Yes TAKE 1 2 Uni vers (ZANAFLEX) 3-27 TO 1 (ONE ity of 2 mg tablet 00:00: HALF TO [place] as 00 ONE) [email or web address] [email or web address] n EVERY 8 Cancer HOURS Center NEEDED FOR MUSCLE SPASM OR PAIN benzonatate 2020-0 Yes 1{capsu Q.[id number] Take 1 [facility] (TESSALON) 2-28 le} [id number] capsule by st 200 MG 00:00: 3D mouth 3 Hospita capsule 00 (three) l times a day as needed. benzonatate 2020-0 Yes 1{capsu Q.[id number] Take 1 [facility] (TESSALON) 2-28 le} [id number] capsule by st 200 MG 00:00: 3D [...] [facility] benzonatate 2020-0 Yes 1{capsu Q.[id number] Take 1 [facility] (TESSALON) 2-28 le} [id number] capsule by st 200 MG 00:00: 3D [...] 00:00: mouth. MD [facility] dicyclomine 2020-0 Yes 20mg Take 20 mg Univers (BENTYL) 20 2-06 by mouth. ity of mg tablet 00:00: [place] 00 MD [facility] dicyclomine 2020-0 Yes 20mg Take 20 mg Univers (BENTYL) 20 2-06 by mouth. ity of mg tablet 00:00: 00 MD [facility] dicyclomine 2020-0 Yes 20mg Take 20 mg Univers (BENTYL) 20 2-06 by mouth. ity of mg tablet 00:00: [place] 00 [facility] acetaminoph 2019-0 Yes TAKE 1 Univ ers en-codeine 2-05 [...] n NAUSEA AND Cancer VOMITING Center acetaminoph 0 Yes TAKE 1 Univ ers en-codeine 2-05 TABLET BY ity of (TYLENOL 00:00: MOUTH [place] #3) 300 00 EVERY 4 MD mg-30 mg HOURS Anders[place] tablet NEEDED FOR n PAIN SCALE Cancer 4 6 Center ondansetron 0 Yes DISSOLVE 1 Univers (ZOFRAN-ODT 2-05 TABLET IN ity of ) 4 mg 00:00: MOUTH [place] disintegrat 00 EVERY 8 MD ing tablet HOURS Aaron so NEEDED FOR n NAUSEA AND Cancer VOMITING Center acetaminoph 0 Yes TAKE 1 Univ ers en-codeine 2-05 TABLET BY ity of (TYLENOL 00:00: MOUTH [place] #3) 300 00 EVERY 4 MD mg-30 mg HOURS Anderso tablet NEEDED FOR n PAIN SCALE Cancer 4 6 Center ondansetron 0 Yes DISSOLVE 1 Univers (ZOFRAN-ODT 2-05 TABLET IN ity of ) 4 mg 00:00: MOUTH [place] disintegrat 00 EVERY 8 MD ing tablet HOURS Aaron so NEEDED FOR n NAUSEA AND Cancer VOMITING Center acetaminoph 2019-0 Yes 1{tbl} Take 1 Un wendy en-codeine 2-04 tablet by ity of (TYLENOL 00:00: mouth as [place] #3) 300 00 needed. MD mg-30 mg [place] tablet n Cancer Center acetaminoph 2020-0 Yes 1{tbl} Take 1 Un wendy en-codeine 2-04 tablet by ity of (TYLENOL 00:00: mouth as [place] #3) 300 00 needed. MD mg-30 mg [place] tablet n Cancer Center acetaminoph 2020-0 Yes 1{tbl} Take 1 Un wendy en-codeine [...] Center SHORTNESS OF BREATH albuterol 2018-04 Yes [id number] 2.5mg Inhale 3 Univers 2.5 mg /3 0-24 mL every 4 ity of mL (0.083 00:00: (four) [place] %) 00 hours as Medical nebulizer needed for Bran ch solution Wheezing or Shortness of Breath. Via nebulizer albuterol 2018-04 Yes [id number] 2.5mg Inhale 3 Univers 2.5 mg /3 0-24 mL every 4 ity of mL (0.083 00:00: (four) [place] %) 00 hours as Medical nebulizer needed for Bran ch solution Wheezing or Shortness of Breath. Via nebulizer albuterol 2018-04 Yes [id number] 2.5mg Inhale 3 Univers 2.5 mg /3 0-24 mL every 4 ity of mL (0.083 00:00: (four) [place] %) 00 hours as Medical nebulizer needed for Bran ch solution Wheezing or Shortness of Breath. Via nebulizer albuterol 2018-04 Yes [id number] 2.5mg Inhale 3 Univers 2.5 mg /3 0-24 mL every 4 ity of mL (0.083 00:00: (four) [place] %) 00 hours as Medical nebulizer needed for Bran ch solution Wheezing or Shortness of Breath. Via nebulizer albuterol 2018-04 Yes [id number] 2.5mg Inhale 3 Univers 2.5 mg /3 0-24 mL every 4 ity of mL (0.083 00:00: (four) [place] %) 00 hours as Medical nebulizer needed for Bran ch solution Wheezing or Shortness of Breath. Via nebulizer albuterol 2018-04 Yes [id number] 2.5mg Inhale 3 Univers 2.5 mg /3 0-24 mL every 4 ity of mL (0.083 00:00: (four) [place] %) 00 hours as Medical nebulizer needed for Bran ch solution Wheezing or Shortness of Breath. Via nebulizer albuterol 2018-04 Yes [id number] 2.5mg Inhale 3 Univers 2.5 mg /3 0-24 mL every 4 ity of mL (0.083 00:00: (four) [place] %) 00 hours as Medical nebulizer needed for Bran ch solution Wheezing or Shortness of Breath. Via nebulizer albuterol 2018-04 Yes [id number] 2.5mg Inhale 3 Univers 2.5 mg /3 0-24 mL every 4 ity of mL (0.083 00:00: (four) [place] %) 00 hours as Medical nebulizer needed for Bran ch solution Wheezing or Shortness of Breath. Via nebulizer albuterol 2018-04 Yes [id number] 2.5mg Inhale 3 Univers 2.5 mg /3 0-24 mL every 4 ity of mL (0.083 00:00: (four) [place] %) 00 hours as Medical nebulizer needed for Bran ch solution Wheezing or Shortness of Breath. Via nebulizer albuterol 2018-04 Yes [id number] 2.5mg Inhale 3 Univers 2.5 mg /3 0-24 mL every 4 ity of mL (0.083 00:00: (four) [place] %) 00 hours as Medical nebulizer needed for Bran ch solution Wheezing or Shortness of Breath. Via nebulizer albuterol 2018-04 Yes [id number] 2.5mg Inhale 3 Univers 2.5 mg /3 0-24 mL every 4 ity of mL (0.083 00:00: (four) [place] %) 00 hours as Medical nebulizer needed for Bran ch solution Wheezing or Shortness of Breath. Via nebulizer albuterol 2018-04 Yes [id number] 2.5mg Inhale 3 Univers 2.5 mg /3 0-24 mL every 4 ity of mL (0.083 00:00: (four) [place] %) 00 hours as Medical nebulizer needed for Bran ch solution Wheezing or Shortness of Breath. Via nebulizer albuterol 2018-04 Yes [id number] 2.5mg Inhale 3 Univers 2.5 mg /3 0-24 mL every 4 ity of mL (0.083 00:00: (four) [place] %) 00 hours as Medical nebulizer needed for Bran ch solution Wheezing or Shortness of Breath. Via nebulizer albuterol 2018-04 Yes [id number] 2.5mg Inhale 3 Univers 2.5 mg /3 0-24 mL every 4 ity of mL (0.083 00:00: (four) [place] %) 00 hours as Medical nebulizer needed for Bran ch solution Wheezing or Shortness of Breath. Via nebulizer albuterol 2018-04 Yes [id number] 2.5mg Inhale 3 Univers 2.5 mg /3 0-24 mL every 4 ity of mL (0.083 00:00: (four) [place] %) 00 hours as Medical nebulizer needed for Bran ch solution Wheezing or Shortness of Breath. Via nebulizer albuterol 2018-04 Yes [id number] 2.5mg Inhale 3 Univers 2.5 mg /3 0-24 mL every 4 ity of mL (0.083 00:00: (four) [place] %) 00 hours as Medical nebulizer needed for Bran ch solution Wheezing or Shortness of Breath. Via nebulizer albuterol 2018-04 Yes [id number] 2.5mg Inhale 3 Univers 2.5 mg /3 0-24 mL every 4 ity of mL (0.083 00:00: (four) [place] %) 00 hours as Medical nebulizer needed for Bran ch solution Wheezing or Shortness of Breath. Via nebulizer albuterol 2018-04 Yes [id number] 2.5mg Inhale 3 Univers 2.5 mg /3 0-24 mL every 4 ity of mL (0.083 00:00: (four) [place] %) 00 hours as Medical nebulizer needed for Bran ch solution Wheezing or Shortness of Breath. Via nebulizer albuterol 2018-04 Yes [id number] 2.5mg Inhale 3 Univers 2.5 mg /3 0-24 mL every 4 ity of mL (0.083 00:00: (four) [place] %) 00 hours as Medical nebulizer needed for Bran ch solution Wheezing or Shortness of Breath. Via nebulizer albuterol 2018-04 Yes [id number] 2.5mg Inhale 3 Univers 2.5 mg /3 0-24 mL every 4 ity of mL (0.083 00:00: (four) [place] %) 00 hours as Medical nebulizer needed for Bran ch solution Wheezing or Shortness of Breath. Via nebulizer albuterol 2018-04 Yes [id number] 2.5mg Inhale 3 Univers 2.5 mg /3 0-24 mL every 4 ity of mL (0.083 00:00: ([facility]) [place] %) 00 hours as Medical nebulizer needed for Bran ch solution Wheezing or Shortness of Breath. Via nebulizer albuterol 2018-04 Yes [id number] 2.5mg Inhale 3 Univers 2.5 mg /3 0-24 mL every 4 ity of mL (0.083 00:00: (four) [place] %) 00 hours as Medical nebulizer needed for Bran ch solution Wheezing or Shortness of Breath. Via nebulizer albuterol 2018-04 Yes [id number] 2.5mg Inhale 3 Univers 2.5 mg /3 0-24 mL every 4 ity of mL (0.083 00:00: (four) [place] %) 00 hours as Medical nebulizer needed for Bran ch solution Wheezing or Shortness of Breath. Via nebulizer albuterol 2018-04 Yes [id number] 2.5mg Inhale 3 Univers 2.5 mg /3 0-24 mL every 4 ity of mL (0.083 00:00: (four) [place] %) 00 hours as Medical nebulizer needed for Bran ch solution Wheezing or Shortness of Breath. Via nebulizer albuterol 2018-04 Yes [id number] 2.5mg Inhale 3 Univers 2.5 mg /3 0-24 mL every 4 ity of mL (0.083 00:00: (four) [place] %) 00 hours as Medical nebulizer needed for Bran ch solution Wheezing or Shortness of Breath. Via nebulizer albuterol 2018-04 Yes [id number] 2.5mg Inhale 3 Univers 2.5 mg /3 0-24 mL every 4 ity of mL (0.083 00:00: (four) [place] %) 00 hours as Medical nebulizer needed for Bran ch solution Wheezing or Shortness of Breath. Via nebulizer albuterol 2018-04 Yes [id number] 2.5mg Inhale 3 Univers 2.5 mg /3 0-24 mL every 4 ity of mL (0.083 00:00: ([facility]) [place] %) 00 hours as Medical nebulizer needed for Bran ch solution Wheezing or Shortness of Breath. Via nebulizer albuterol 2018-04 Yes [id number] 2.5mg Inhale 3 Univers 2.5 mg /3 0-24 mL every 4 ity of mL (0.083 00:00: ([facility]) [place] %) 00 hours as Medical nebulizer needed for Bran ch solution Wheezing or Shortness of Breath. Via nebulizer albuterol 2018-04 Yes [id number] 2.5mg Inhale 3 Univers 2.5 mg /3 0-24 mL every 4 ity of mL (0.083 00:00: ([facility]) [place] %) 00 hours as Medical nebulizer needed for Bran ch solution Wheezing or Shortness of Breath. Via nebulizer albuterol 2018-04 Yes [id number] 2.5mg Inhale 3 Univers 2.5 mg /3 0-24 mL every 4 ity of mL (0.083 00:00: ([facility]) [place] %) 00 hours as Medical nebulizer needed for Bran ch solution Wheezing or Shortness of Breath. Via nebulizer albuterol 2018-04 Yes [id number] 2.5mg Inhale 3 Univers 2.5 mg /3 0-24 mL every 4 ity of mL (0.083 00:00: ([facility]) [place] %) 00 hours as Medical nebulizer needed for Bran ch solution Wheezing or Shortness of Breath. Via nebulizer albuterol 2018-04 Yes [id number] 2.5mg Inhale 3 Univers 2.5 mg /3 0-24 mL every 4 ity of mL (0.083 00:00: (four) [place] %) 00 hours as Medical nebulizer needed for Bran ch solution Wheezing or Shortness of Breath. Via nebulizer albuterol 2018-04 Yes [id number] 2.5mg Inhale 3 Univers 2.5 mg /3 0-24 mL every 4 ity of mL (0.083 00:00: (four) [place] %) 00 hours as Medical nebulizer needed for Bran ch solution Wheezing or Shortness of Breath. Via nebulizer albuterol 2018-04 Yes [id number] 2.5mg Inhale 3 Univers 2.5 mg /3 0-24 mL every 4 ity of mL (0.083 00:00: (four) [place] %) 00 hours as Medical nebulizer needed for Bran ch solution Wheezing or Shortness of Breath. Via nebulizer albuterol 2018-04 Yes [id number] 2.5mg Inhale 3 Univers 2.5 mg /3 0-24 mL every 4 ity of mL (0.083 00:00: (four) [place] %) 00 hours as Medical nebulizer needed for Bran ch solution Wheezing or Shortness of Breath. Via nebulizer albuterol 2018-04 Yes [id number] 2.5mg Inhale 3 Univers 2.5 mg /3 0-24 mL every 4 ity of mL (0.083 00:00: (four) [place] %) 00 hours as Medical nebulizer needed for Bran ch solution Wheezing or Shortness of Breath. Via nebulizer albuterol 2018-04 Yes [id number] 2.5mg Inhale 3 Univers 2.5 mg /3 0-24 mL every 4 ity of mL (0.083 00:00: (four) [place] %) 00 hours as Medical nebulizer needed for Bran ch solution Wheezing or Shortness of Breath. Via nebulizer albuterol 2018-04 Yes [id number] 2.5mg Inhale 3 Univers 2.5 mg /3 0-24 mL every 4 ity of mL (0.083 00:00: (four) [place] %) 00 hours as Medical nebulizer needed for Bran ch solution Wheezing or Shortness of Breath. Via nebulizer albuterol 2018-04 Yes [id number] 2.5mg Inhale 3 Univers 2.5 mg /3 0-24 mL every 4 ity of mL (0.083 00:00: (four) [place] %) 00 hours as Medical nebulizer needed for Bran ch solution Wheezing or Shortness of Breath. Via nebulizer albuterol 2018-04 Yes [id number] 2.5mg Inhale 3 Univers 2.5 mg /3 0-24 mL every 4 ity of mL (0.083 00:00: (four) [place] %) 00 hours as Medical nebulizer needed for Bran ch solution Wheezing or Shortness of Breath. Via nebulizer albuterol 2018-04 Yes [id number] 2.5mg Inhale 3 Univers 2.5 mg /3 0-24 mL every 4 ity of mL (0.083 00:00: (four) [place] %) 00 hours as Medical nebulizer needed for Bran ch solution Wheezing or Shortness of Breath. Via nebulizer albuterol 2018-04 Yes [id number] 2.5mg Inhale 3 Univers 2.5 mg /3 0-24 mL every 4 ity of mL (0.083 00:00: (four) [place] %) 00 hours as Medical nebulizer needed for Bran ch solution Wheezing or Shortness of Breath. Via nebulizer albuterol 2018-04 Yes [id number] 2.5mg Inhale 3 Univers 2.5 mg /3 0-24 mL every 4 ity of mL (0.083 00:00: (four) [place] %) 00 hours as Medical nebulizer needed for Bran ch solution Wheezing or Shortness of Breath. Via nebulizer albuterol 2018-04 Yes [id number] 2.5mg Inhale 3 Univers 2.5 mg /3 0-24 mL every 4 ity of mL (0.083 00:00: (four) [place] %) 00 hours as Medical nebulizer needed for Bran ch solution Wheezing or Shortness of Breath. Via nebulizer albuterol 2018-04 Yes [id number] 2.5mg Inhale 3 Univers 2.5 mg /3 0-24 mL every 4 ity of mL (0.083 00:00: (four) [place] %) 00 hours as Medical nebulizer needed for Bran ch solution Wheezing or Shortness of Breath. Via nebulizer albuterol 2018-04 Yes [id number] 2.5mg Inhale 3 Univers 2.5 mg /3 0-24 mL every 4 ity of mL (0.083 00:00: (four) [place] %) 00 hours as Medical nebulizer needed for Bran ch solution Wheezing or Shortness of Breath. Via nebulizer albuterol 2018-04 Yes [id number] 2.5mg Inhale 3 Univers 2.5 mg /3 0-24 mL every 4 ity of mL (0.083 00:00: (four) [place] %) 00 hours as Medical nebulizer needed for Bran ch solution Wheezing or Shortness of Breath. Via nebulizer albuterol 2018-04 Yes [id number] 2.5mg Inhale 3 Univers 2.5 mg /3 0-24 mL every 4 ity of mL (0.083 00:00: (four) [place] %) 00 hours as Medical nebulizer needed for Bran ch solution Wheezing or Shortness of Breath. Via nebulizer albuterol 2018-04 Yes [id number] 2.5mg Inhale 3 Univers 2.5 mg /3 0-24 mL every 4 ity of mL (0.083 00:00: (four) [place] %) 00 hours as Medical nebulizer needed for Bran ch solution Wheezing or Shortness of Breath. Via nebulizer albuterol 2018-04 Yes [id number] 2.5mg Inhale 3 Univers 2.5 mg /3 0-24 mL every 4 ity of mL (0.083 00:00: (four) [place] %) 00 hours as Medical nebulizer needed for Bran ch solution Wheezing or Shortness of Breath. Via nebulizer albuterol 2018-04 Yes [id number] 2.5mg Inhale 3 Univers 2.5 mg /3 0-24 mL every 4 ity of mL (0.083 00:00: (four) [place] %) 00 hours as Medical nebulizer needed for Bran ch solution Wheezing or Shortness of Breath. Via nebulizer albuterol 2018-04 Yes [id number] 2.5mg Inhale 3 Univers 2.5 mg /3 0-24 mL every 4 ity of mL (0.083 00:00: (four) [place] %) 00 hours as Medical nebulizer needed for Bran ch solution Wheezing or Shortness of Breath. Via nebulizer albuterol 2018-04 Yes [id number] 2.5mg Inhale 3 Univers 2.5 mg /3 0-24 mL every 4 ity of mL (0.083 00:00: (four) [place] %) 00 hours as Medical nebulizer needed for Bran ch solution Wheezing or Shortness of Breath. Via nebulizer albuterol 2018-04 Yes [id number] 2.5mg Inhale 3 Univers 2.5 mg /3 0-24 mL every 4 ity of mL (0.083 00:00: (four) [place] %) 00 hours as Medical nebulizer needed for Bran ch solution Wheezing or Shortness of Breath. Via nebulizer albuterol 2018-04 Yes [id number] 2.5mg Inhale 3 Univers 2.5 mg /3 0-24 mL every 4 ity of mL (0.083 00:00: (four) [place] %) 00 hours as Medical nebulizer needed for Bran ch solution Wheezing or Shortness of Breath. Via nebulizer albuterol 2018-04 Yes [id number] 2.5mg Inhale 3 Univers 2.5 mg /3 0-24 mL every 4 ity of mL (0.083 00:00: (four) [place] %) 00 hours as Medical nebulizer needed for Bran ch solution Wheezing or Shortness of Breath. Via nebulizer albuterol 2018-04 Yes [id number] 2.5mg Inhale 3 Univers 2.5 mg /3 0-24 mL every 4 ity of mL (0.083 00:00: (four) [place] %) 00 hours as Medical nebulizer needed for Bran ch solution Wheezing or Shortness of Breath. Via nebulizer albuterol 2018-04 Yes [id number] 2.5mg Inhale 3 Univers 2.5 mg /3 0-24 mL every 4 ity of mL (0.083 00:00: (four) [place] %) 00 hours as Medical nebulizer needed for Bran ch solution Wheezing or Shortness of Breath. Via nebulizer albuterol 2018-04 Yes [id number] 2.5mg Inhale 3 Univers 2.5 mg /3 0-24 mL every 4 ity of mL (0.083 00:00: (four) [place] %) 00 hours as Medical nebulizer needed for Bran ch solution Wheezing or Shortness of Breath. Via nebulizer albuterol 2018-04 Yes [id number] 2.5mg Inhale 3 [facility] 2.5 mg /3 0-24 mL every 4 ity of mL (0.083 00:00: (four) [place] %) 00 hours as Medical nebulizer needed for Bran ch solution Wheezing or Shortness of Breath. Via nebulizer albuterol 2018-04 Yes [id number] 2.5mg Inhale 3 [facility] 2.5 mg /3 0-24 mL every 4 ity of mL (0.083 00:00: (four) [place] %) 00 hours as Medical nebulizer needed for Bran ch solution Wheezing or Shortness of Breath. Via nebulizer albuterol 2018-04 Yes [id number] 2.5mg Inhale 3 [facility] 2.5 mg /3 0-24 mL every 4 ity of mL (0.083 00:00: (four) [place] %) 00 hours as Medical nebulizer needed for Bran ch solution Wheezing or Shortness of Breath. Via nebulizer albuterol 2018-04 Yes [id number] 2.5mg Inhale 3 [facility] 2.5 mg /3 0-24 mL every 4 ity of mL (0.083 00:00: (four) [place] %) 00 hours as Medical nebulizer needed for Bran ch solution Wheezing or Shortness of Breath. Via nebulizer albuterol 2018-04 Yes [id number] 2.5mg Inhale 3 [facility] 2.5 mg /3 0-24 mL every 4 ity of mL (0.083 00:00: (four) [place] %) 00 hours as Medical nebulizer needed for Bran ch solution Wheezing or Shortness of Breath. Via nebulizer albuterol 2018-04 Yes [id number] 2.5mg Inhale 3 [facility] 2.5 mg /3 0-24 mL every 4 ity of mL (0.083 00:00: (four) [place] %) 00 hours as Medical nebulizer needed for Bran ch solution Wheezing or Shortness of Breath. Via nebulizer albuterol 2018-04 Yes [id number] 2.5mg Inhale 3 [facility] 2.5 mg /3 0-24 mL every 4 ity of mL (0.083 00:00: (four) [place] %) 00 hours as Medical nebulizer needed for Bran ch solution Wheezing or Shortness of Breath. Via nebulizer albuterol 2018-04 Yes [id number] 2.5mg Inhale 3 [facility] 2.5 mg /3 0-24 mL every 4 ity of mL (0.083 00:00: (four) [place] %) 00 hours as Medical nebulizer needed for Bran ch solution Wheezing or Shortness of Breath. Via nebulizer albuterol 2018-04 Yes [id number] 2.5mg Inhale 3 [facility] 2.5 mg /3 0-24 mL every 4 ity of mL (0.083 00:00: (four) [place] %) 00 hours as Medical nebulizer needed for Bran ch solution Wheezing or Shortness of Breath. Via nebulizer albuterol 2018-04 Yes [id number] 2.5mg Inhale 3 [facility] 2.5 mg /3 0-24 mL every 4 ity of mL (0.083 00:00: (four) [place] %) 00 hours as Medical nebulizer needed for Bran ch solution Wheezing or Shortness of Breath. Via nebulizer albuterol 2018-04 Yes [id number] 2.5mg Inhale 3 [facility] 2.5 mg /3 0-24 mL every 4 ity of mL (0.083 00:00: (four) [place] %) 00 hours as Medical nebulizer needed for Bran ch solution Wheezing or Shortness of Breath. Via nebulizer albuterol 2018-04 Yes [id number] 2.5mg Inhale 3 [facility] 2.5 mg /3 0-24 mL every 4 ity of mL (0.083 00:00: ([facility]) [place] %) 00 hours as Medical nebulizer needed for Bran ch solution Wheezing or Shortness of Breath. Via nebulizer albuterol 2018-04 Yes [id number] 2.5mg Inhale 3 [facility] 2.5 mg /3 0-24 mL every 4 ity of mL (0.083 00:00: (four) [place] %) 00 hours as Medical nebulizer needed for Bran ch solution Wheezing or Shortness of Breath. Via nebulizer albuterol 2018-04 Yes [id number] 2.5mg Inhale 3 [facility] 2.5 mg /3 0-24 mL every 4 ity of mL (0.083 00:00: (four) [place] %) 00 hours as Medical nebulizer needed for Bran ch solution Wheezing or Shortness of Breath. Via nebulizer albuterol 2018-04 Yes [id number] 2.5mg Inhale 3 [facility] 2.5 mg /3 0-24 mL every 4 ity of mL (0.083 00:00: (four) [place] %) 00 hours as Medical nebulizer needed for Bran ch solution Wheezing or Shortness of Breath. Via nebulizer albuterol 2018-04 Yes [id number] 2.5mg Inhale 3 [facility] 2.5 mg /3 0-24 mL every 4 ity of mL (0.083 00:00: (four) [place] %) 00 hours as Medical nebulizer needed for Bran ch solution Wheezing or Shortness of Breath. Via nebulizer albuterol 2018-04 Yes [id number] 2.5mg Inhale 3 [facility] 2.5 mg /3 0-24 mL every 4 ity of mL (0.083 00:00: (four) [place] %) 00 hours as Medical nebulizer needed for Bran ch solution Wheezing or Shortness of Breath. Via nebulizer albuterol 2018-04 Yes [id number] 2.5mg Inhale 3 [facility] 2.5 mg /3 0-24 mL every 4 ity of mL (0.083 00:00: ([facility]) [place] %) 00 hours as Medical nebulizer needed for Bran ch solution Wheezing or Shortness of Breath. Via nebulizer albuterol 2018-04 Yes [id number] 2.5mg Inhale 3 [facility] 2.5 mg /3 0-24 mL every 4 ity of mL (0.083 00:00: ([facility]) [place] %) 00 hours as Medical nebulizer needed for Bran ch solution Wheezing or Shortness of Breath. Via nebulizer albuterol 2018-04 Yes [id number] 2.5mg Inhale 3 [facility] 2.5 mg /3 0-24 mL every 4 ity of mL (0.083 00:00: ([facility]) [place] %) 00 hours as Medical nebulizer needed for Bran ch solution Wheezing or Shortness of Breath. Via nebulizer albuterol 2018-04 Yes [id number] 2.5mg Inhale 3 [facility] 2.5 mg /3 0-24 mL every 4 ity of mL (0.083 00:00: ([facility]) [place] %) 00 hours as Medical nebulizer needed for Bran ch solution Wheezing or Shortness of Breath. Via nebulizer albuterol 2018-04 Yes [id number] 2.5mg Inhale 3 [facility] 2.5 mg /3 0-24 mL every 4 ity of mL (0.083 00:00: ([facility]) [place] %) 00 hours as Medical nebulizer needed for Bran ch solution Wheezing or Shortness of Breath. Via nebulizer albuterol 2018-04 Yes [id number] 2.5mg Inhale 3 [facility] 2.5 mg /3 0-24 mL every 4 ity of mL (0.083 00:00: (four) [place] %) 00 hours as Medical nebulizer needed for Bran ch solution Wheezing or Shortness of Breath. Via nebulizer albuterol 2018-04 Yes [id number] 2.5mg Inhale 3 [facility] 2.5 mg /3 0-24 mL every 4 ity of mL (0.083 00:00: (four) [place] %) 00 hours as Medical nebulizer needed for Bran ch solution Wheezing or Shortness of Breath. Via nebulizer albuterol 2018-04 Yes [id number] 2.5mg Inhale 3 [facility] 2.5 mg /3 0-24 mL every 4 ity of mL (0.083 00:00: (four) [place] %) 00 hours as Medical nebulizer needed for Bran ch solution Wheezing or Shortness of Breath. Via nebulizer albuterol 2018-04 Yes [id number] 2.5mg Inhale 3 [facility] 2.5 mg /3 0-24 mL every 4 ity of mL (0.083 00:00: (four) [place] %) 00 hours as Medical nebulizer needed for Bran ch solution Wheezing or Shortness of Breath. Via nebulizer albuterol 2018-04 Yes [id number] 2.5mg Inhale 3 [facility] 2.5 mg /3 0-24 mL every 4 ity of mL (0.083 00:00: (four) [place] %) 00 hours as Medical nebulizer needed for Bran ch solution Wheezing or Shortness of Breath. Via nebulizer albuterol 2018-04 Yes [id number] 2.5mg Inhale 3 [facility] 2.5 mg /3 0-24 mL every 4 ity of mL (0.083 00:00: (four) [place] %) 00 hours as Medical nebulizer needed for Bran ch solution Wheezing or Shortness of Breath. Via nebulizer albuterol 2018-04 Yes [id number] 2.5mg Inhale 3 [facility] 2.5 mg /3 0-24 mL every 4 ity of mL (0.083 00:00: (four) [place] %) 00 hours as Medical nebulizer needed for Bran ch solution Wheezing or Shortness of Breath. Via nebulizer albuterol 2018-04 Yes [id number] 2.5mg Inhale 3 [facility] 2.5 mg /3 0-24 mL every 4 ity of mL (0.083 00:00: (four) [place] %) 00 hours as Medical nebulizer needed for Bran ch solution Wheezing or Shortness of Breath. Via nebulizer albuterol 2018-04 Yes [id number] 2.5mg Inhale 3 [facility] 2.5 mg /3 0-24 mL every 4 ity of mL (0.083 00:00: (four) [place] %) 00 hours as Medical nebulizer needed for Bran ch solution Wheezing or Shortness of Breath. Via nebulizer albuterol 2018-04 Yes [id number] 2.5mg Inhale 3 [facility] 2.5 mg /3 0-24 mL every 4 ity of mL (0.083 00:00: (four) [place] %) 00 hours as Medical nebulizer needed for Bran ch solution Wheezing or Shortness of Breath. Via nebulizer albuterol 2018-04 Yes [id number] 2.5mg Inhale 3 [facility] 2.5 mg /3 0-24 mL every 4 ity of mL (0.083 00:00: (four) [place] %) 00 hours as Medical nebulizer needed for Bran ch solution Wheezing or Shortness of Breath. Via nebulizer albuterol 2018-04 Yes [id number] 2.5mg Inhale 3 [facility] 2.5 mg /3 0-24 mL every 4 ity of mL (0.083 00:00: (four) [place] %) 00 hours as Medical nebulizer needed for Bran ch solution Wheezing or Shortness of Breath. Via nebulizer albuterol 2018-04 Yes [id number] 2.5mg Inhale 3 [facility] 2.5 mg /3 0-24 mL every 4 ity of mL (0.083 00:00: (four) [place] %) 00 hours as Medical nebulizer needed for Bran ch solution Wheezing or Shortness of Breath. Via nebulizer albuterol 2018-04 Yes [id number] 2.5mg Inhale 3 [facility] 2.5 mg /3 0-24 mL every 4 ity of mL (0.083 00:00: (four) [place] %) 00 hours as Medical nebulizer needed for Bran ch solution Wheezing or Shortness of Breath. Via nebulizer albuterol 2018-04 Yes [id number] 2.5mg Inhale 3 [facility] 2.5 mg /3 0-24 mL every 4 ity of mL (0.083 00:00: (four) [place] %) 00 hours as Medical nebulizer needed for Bran ch solution Wheezing or Shortness of Breath. Via nebulizer albuterol 2018-04 Yes [id number] 2.5mg Inhale 3 [facility] 2.5 mg /3 0-24 mL every 4 ity of mL (0.083 00:00: (four) [place] %) 00 hours as Medical nebulizer needed for Bran ch solution Wheezing or Shortness of Breath. Via nebulizer albuterol 2018-04 Yes [id number] 2.5mg Inhale 3 [facility] 2.5 mg /3 0-24 mL every 4 ity of mL (0.083 00:00: (four) [place] %) 00 hours as Medical nebulizer needed for Bran ch solution Wheezing or Shortness of Breath. Via nebulizer albuterol 2018-04 Yes [id number] 2.5mg Inhale 3 [facility] 2.5 mg /3 0-24 mL every 4 ity of mL (0.083 00:00: (four) [place] %) 00 hours as Medical nebulizer needed for Bran ch solution Wheezing or Shortness of Breath. Via nebulizer albuterol 2018-04 Yes [id number] 2.5mg Inhale 3 [facility] 2.5 mg /3 0-24 mL every 4 ity of mL (0.083 00:00: (four) [place] %) 00 hours as Medical nebulizer needed for Bran ch solution Wheezing or Shortness of Breath. Via nebulizer albuterol 2018-04 Yes [id number] 2.5mg Inhale 3 [facility] 2.5 mg /3 0-24 mL every 4 ity of mL (0.083 00:00: (four) [place] %) 00 hours as Medical nebulizer needed for Bran ch solution Wheezing or Shortness of Breath. Via nebulizer albuterol 2018-04 Yes [id number] 2.5mg Inhale 3 [facility] 2.5 mg /3 0-24 mL every 4 ity of mL (0.083 00:00: (four) [place] %) 00 hours as Medical nebulizer needed for Bran ch solution Wheezing or Shortness of Breath. Via nebulizer albuterol 2018-04 Yes [id number] 2.5mg Inhale 3 [facility] 2.5 mg /3 0-24 mL every 4 ity of mL (0.083 00:00: (four) [place] %) 00 hours as Medical nebulizer needed for Bran ch solution Wheezing or Shortness of Breath. Via nebulizer albuterol 2018-04 Yes [id number] 2.5mg Inhale 3 [facility] 2.5 mg /3 0-24 mL every 4 ity of mL (0.083 00:00: (four) [place] %) 00 hours as Medical nebulizer needed for Bran ch solution Wheezing or Shortness of Breath. Via nebulizer albuterol 2018-04 Yes [id number] 2.5mg Inhale 3 [facility] 2.5 mg /3 0-24 mL every 4 ity of mL (0.083 00:00: (four) [place] %) 00 hours as Medical nebulizer needed for Bran ch solution Wheezing or Shortness of Breath. Via nebulizer albuterol 2018-04 Yes [id number] 2.5mg Inhale 3 [facility] 2.5 mg /3 0-24 mL every 4 ity of mL (0.083 00:00: (four) [place] %) 00 hours as Medical nebulizer needed for Bran ch solution Wheezing or Shortness of Breath. Via nebulizer albuterol 2018-04 Yes [id number] 2.5mg Inhale 3 [facility] 2.5 mg /3 0-24 mL every 4 ity of mL (0.083 00:00: (four) [place] %) 00 hours as Medical nebulizer needed for Bran ch solution Wheezing or Shortness of Breath. Via nebulizer albuterol 2018-04 Yes [id number] 2.5mg Inhale 3 [facility] 2.5 mg /3 0-24 mL every 4 ity of mL (0.083 00:00: (four) [place] %) 00 hours as Medical nebulizer needed for Bran ch solution Wheezing or Shortness of Breath. Via nebulizer albuterol 2018-04 Yes [id number] 2.5mg Inhale 3 [facility] 2.5 mg /3 0-24 mL every 4 ity of mL (0.083 00:00: (four) [place] %) 00 hours as Medical nebulizer needed for Bran ch solution Wheezing or Shortness of Breath. Via nebulizer albuterol 2018-04 Yes [id number] 2.5mg Inhale 3 [facility] 2.5 mg /3 0-24 mL every 4 ity of mL (0.083 00:00: (four) [place] %) 00 hours as Medical nebulizer needed for Bran ch solution Wheezing or Shortness of Breath. Via nebulizer albuterol 2018-04 Yes [id number] 2.5mg Inhale 3 [facility] 2.5 mg /3 0-24 mL every 4 ity of mL (0.083 00:00: (four) [place] %) 00 hours as Medical nebulizer needed for Bran ch solution Wheezing or Shortness of Breath. Via nebulizer albuterol 2018-04 Yes [id number] 2.5mg Inhale 3 [facility] 2.5 mg /3 [...] EVERY s pen WEEK dulaglutide 2018-04 Yes INJECT Meth mirian (Trulicity) 0-08 1.5MG (1 st 1.5 mg/0.5 00:00: P[facility]) [facility] mL 00 SUBCUTANEO l subcutaneou USLY EVERY s pen WEEK dulaglutide 2018-04 Yes 1.5mg Inject 1.5 [facility] (TRULICITY) 0-08 mg under ity of 1.5 mg/0.5 00:00: [place] mL 00 MD injection [facility] dulaglutide 2018-04 Yes 1.5mg Inject 1.5 [facility] (TRULICITY) 0-08 mg under ity of 1.5 mg/0.5 00:00: [place] mL 00 MD injection [facility] dulaglutide 2018-04 Yes INJECT Meth mirian (Trulicity) 0-08 1.5MG (1 st 1.5 mg/0.5 00:00: PEN) [facility] mL 00 SUBCUTANEO l subcutaneou USLY EVERY s pen WEEK dulaglutide 2018-04 Yes 1.5mg Inject 1.5 [facility] (TRULICITY) 0-08 mg under ity of 1.5 mg/0.5 00:00: [place]. [place] mL 00 MD injection [facility] LINZESS 290 2018-04 Yes 290ug QD Take [...] [facility] 00 daily. l traMADol Yes [id number] 50mg Take 1 [facility] (ULTRAM) 50 9-18 tablet by ity of mg tablet 00:00: mouth [place] 00 every 6 Medical (six) Branch hours as needed for Pain (scale 7-10). traMADol Yes [id number] 50mg Take 1 [facility] (ULTRAM) 50 9-18 tablet by ity of mg tablet 00:00: mouth [place] 00 every 6 Medical (six) Branch hours as needed for Pain (scale 7-10). traMADol Yes [id number] 50mg Take 1 [facility] (ULTRAM) 50 9-18 tablet by ity of mg tablet 00:00: mouth [place] 00 every 6 Medical (six) Branch hours as needed for Pain (scale 7-10). traMADol Yes [id number] 50mg Take 1 [facility] (ULTRAM) 50 9-18 tablet by ity of mg tablet 00:00: mouth [place] 00 every 6 Medical (six) Branch hours as needed for Pain (scale 7-10). traMADol Yes [id number] 50mg Take 1 [facility] (ULTRAM) 50 9-18 tablet by ity of mg tablet 00:00: mouth [place] 00 every 6 Medical (six) Branch hours as needed for Pain (scale 7-10). traMADol 2019-0 Yes [id number] 50mg Take 1 [facility] (ULTRAM) 50 9-18 tablet by ity of mg tablet 00:00: mouth [place] 00 every 6 Medical (six) Branch hours as needed for Pain (scale 7-10). traMADol 2019-0 Yes [id number] 50mg Take 1 [facility] (ULTRAM) 50 9-18 tablet by ity of mg tablet 00:00: mouth [place] 00 every 6 Medical (six) Branch hours as needed for Pain (scale 7-10). traMADol 2019-0 Yes [id number] 50mg Take 1 [facility] (ULTRAM) 50 9-18 tablet by ity of mg tablet 00:00: mouth [place] 00 every 6 Medical (six) Branch hours as needed for Pain (scale 7-10). traMADol 2019-0 Yes [id number] 50mg Take 1 [facility] (ULTRAM) 50 9-18 tablet by ity of mg tablet 00:00: mouth [place] 00 every 6 Medical (six) Branch hours as needed for Pain (scale 7-10). traMADol 2018-0 Yes [id number] 50mg Take 1 [facility] (ULTRAM) 50 9-18 tablet by ity of mg tablet 00:00: mouth [place] 00 every 6 Medical (six) Branch hours as needed for Pain (scale 7-10). traMADol 2019-0 Yes [id number] 50mg Take 1 [facility] (ULTRAM) 50 9-18 tablet by ity of mg tablet 00:00: mouth [place] 00 every 6 Medical (six) Branch hours as needed for Pain (scale 7-10). traMADol 2019-0 Yes [id number] 50mg Take 1 [facility] (ULTRAM) 50 9-18 tablet by ity of mg tablet 00:00: mouth [place] 00 every 6 Medical (six) Branch hours as needed for Pain (scale 7-10). traMADol 2019-0 Yes [id number] 50mg Take 1 [facility] (ULTRAM) 50 9-18 tablet by ity of mg tablet 00:00: mouth [place] 00 every 6 Medical (six) Branch hours as needed for Pain (scale 7-10). traMADol 2019-0 Yes [id number] 50mg Take 1 [facility] (ULTRAM) 50 9-18 tablet by ity of mg tablet 00:00: mouth [place] 00 every 6 Medical (six) Branch hours as needed for Pain (scale 7-10). traMADol 2019-0 Yes [id number] 50mg Take 1 [facility] (ULTRAM) 50 9-18 tablet by ity of mg tablet 00:00: mouth [place] 00 every 6 Medical (six) Branch hours as needed for Pain (scale 7-10). traMADol 2019-0 Yes [id number] 50mg Take 1 [facility] (ULTRAM) 50 9-18 tablet by ity of mg tablet 00:00: mouth [place] 00 every 6 Medical (six) Branch hours as needed for Pain (scale 7-10). traMADol 2019-0 Yes [id number] 50mg Take 1 [facility] (ULTRAM) 50 9-18 tablet by ity of mg tablet 00:00: mouth [place] 00 every 6 Medical (six) Branch hours as needed for Pain (scale 7-10). traMADol 2019-0 Yes [id number] 50mg Take 1 [facility] (ULTRAM) 50 9-18 tablet by ity of mg tablet 00:00: mouth [place] 00 every 6 Medical (six) Branch hours as needed for Pain (scale 7-10). traMADol 2019-0 Yes [id number] 50mg Take 1 [facility] (ULTRAM) 50 9-18 tablet by ity of mg tablet 00:00: mouth [place] 00 every 6 Medical (six) Branch hours as needed for Pain (scale 7-10). traMADol 2019-0 Yes [id number] 50mg Take 1 [facility] (ULTRAM) 50 9-18 tablet by ity of mg tablet 00:00: mouth [place] 00 every 6 Medical (six) Branch hours as needed for Pain (scale 7-10). traMADol 2019-0 Yes [id number] 50mg Take 1 [facility] (ULTRAM) 50 9-18 tablet by ity of mg tablet 00:00: mouth [place] 00 every 6 Medical (six) Branch hours as needed for Pain (scale 7-10). traMADol 2019-0 Yes [id number] 50mg Take 1 [facility] (ULTRAM) 50 9-18 tablet by ity of mg tablet 00:00: mouth [place] 00 every 6 Medical (six) Branch hours as needed for Pain (scale 7-10). traMADol 2019-0 Yes [id number] 50mg Take 1 [facility] (ULTRAM) 50 9-18 tablet by ity of mg tablet 00:00: mouth [place] 00 every 6 Medical (six) Branch hours as needed for Pain (scale 7-10). traMADol 2019-0 Yes [id number] 50mg Take 1 [facility] (ULTRAM) 50 9-18 tablet by ity of mg tablet 00:00: mouth [place] 00 every 6 Medical (six) Branch hours as needed for Pain (scale 7-10). traMADol 2019-0 Yes [id number] 50mg Take 1 [facility] (ULTRAM) 50 9-18 tablet by ity of mg tablet 00:00: mouth [place] 00 every 6 Medical (six) Branch hours as needed for Pain (scale 7-10). traMADol 2018-0 Yes [id number] 50mg Take 1 [facility] (ULTRAM) 50 9-18 tablet by ity of mg tablet 00:00: mouth [place] 00 every 6 Medical (six) Branch hours as needed for Pain (scale 7-10). traMADol 2018-0 Yes [id number] 50mg Take 1 [facility] (ULTRAM) 50 9-18 tablet by ity of mg tablet 00:00: mouth [place] 00 every 6 Medical (six) Branch hours as needed for Pain (scale 7-10). traMADol 2018-0 Yes [id number] 50mg Take 1 [facility] (ULTRAM) 50 9-18 tablet by ity of mg tablet 00:00: mouth [place] 00 every 6 Medical (six) Branch hours as needed for Pain (scale 7-10). traMADol 2019-0 Yes [id number] 50mg Take 1 [facility] (ULTRAM) 50 9-18 tablet by ity of mg tablet 00:00: mouth [place] 00 every 6 Medical (six) Branch hours as needed for Pain (scale 7-10). traMADol 2019-0 Yes [id number] 50mg Take 1 [facility] (ULTRAM) 50 9-18 tablet by ity of mg tablet 00:00: mouth [place] 00 every 6 Medical (six) Branch hours as needed for Pain (scale 7-10). traMADol 2019-0 Yes [id number] 50mg Take 1 [facility] (ULTRAM) 50 9-18 tablet by ity of mg tablet 00:00: mouth [place] 00 every 6 Medical (six) Branch hours as needed for Pain (scale 7-10). traMADol 2019-0 Yes [id number] 50mg Take 1 [facility] (ULTRAM) 50 9-18 tablet by ity of mg tablet 00:00: mouth [place] 00 every 6 Medical (six) Branch hours as needed for Pain (scale 7-10). traMADol 2019-0 Yes [id number] 50mg Take 1 [facility] (ULTRAM) 50 9-18 tablet by ity of mg tablet 00:00: mouth [place] 00 every 6 Medical (six) Branch hours as needed for Pain (scale 7-10). traMADol 2019-0 Yes [id number] 50mg Take 1 [facility] (ULTRAM) 50 9-18 tablet by ity of mg tablet 00:00: mouth [place] 00 every 6 Medical (six) Branch hours as needed for Pain (scale 7-10). traMADol 2019-0 Yes [id number] 50mg Take 1 [facility] (ULTRAM) 50 9-18 tablet by ity of mg tablet 00:00: mouth [place] 00 every 6 Medical (six) Branch hours as needed for Pain (scale 7-10). traMADol 2019-0 Yes [id number] 50mg Take 1 [facility] (ULTRAM) 50 9-18 tablet by ity of mg tablet 00:00: mouth [place] 00 every 6 Medical (six) Branch hours as needed for Pain (scale 7-10). traMADol 2019-0 Yes [id number] 50mg Take 1 [facility] (ULTRAM) 50 9-18 tablet by ity of mg tablet 00:00: mouth [place] 00 every 6 Medical (six) Branch hours as needed for Pain (scale 7-10). traMADol 2019-0 Yes [id number] 50mg Take 1 [facility] (ULTRAM) 50 9-18 tablet by ity of mg tablet 00:00: mouth [place] 00 every 6 Medical (six) Branch hours as needed for Pain (scale 7-10). traMADol 2019-0 Yes [id number] 50mg Take 1 [facility] (ULTRAM) 50 9-18 tablet by ity of mg tablet 00:00: mouth [place] 00 every 6 Medical (six) Branch hours as needed for Pain (scale 7-10). traMADol 2019-0 Yes [id number] 50mg Take 1 [facility] (ULTRAM) 50 9-18 tablet by ity of mg tablet 00:00: mouth [place] 00 every 6 Medical (six) Branch hours as needed for Pain (scale 7-10). traMADol 2019-0 Yes [id number] 50mg Take 1 [facility] (ULTRAM) 50 9-18 tablet by ity of mg tablet 00:00: mouth [place] 00 every 6 Medical (six) Branch hours as needed for Pain (scale 7-10). traMADol 2019-0 Yes [id number] 50mg Take 1 [facility] (ULTRAM) 50 9-18 tablet by ity of mg tablet 00:00: mouth [place] 00 every 6 Medical (six) Branch hours as needed for Pain (scale 7-10). traMADol 2019-0 Yes [id number] 50mg Take 1 [facility] (ULTRAM) 50 9-18 tablet by ity of mg tablet 00:00: mouth [place] 00 every 6 Medical (six) Branch hours as needed for Pain (scale 7-10). traMADol 2019-0 Yes [id number] 50mg Take 1 [facility] (ULTRAM) 50 9-18 tablet by ity of mg tablet 00:00: mouth [place] 00 every 6 Medical (six) Branch hours as needed for Pain (scale 7-10). traMADol 2019-0 Yes [id number] 50mg Take 1 [facility] (ULTRAM) 50 9-18 tablet by ity of mg tablet 00:00: mouth [place] 00 every 6 Medical (six) Branch hours as needed for Pain (scale 7-10). traMADol 2019-0 Yes [id number] 50mg Take 1 [facility] (ULTRAM) 50 9-18 tablet by ity of mg tablet 00:00: mouth [place] 00 every 6 Medical (six) Branch hours as needed for Pain (scale 7-10). traMADol 2019-0 Yes [id number] 50mg Take 1 [facility] (ULTRAM) 50 9-18 tablet by ity of mg tablet 00:00: mouth [place] 00 every 6 Medical (six) Branch hours as needed for Pain (scale 7-10). traMADol 2019-0 Yes [id number] 50mg Take 1 [facility] (ULTRAM) 50 9-18 tablet by ity of mg tablet 00:00: mouth [place] 00 every 6 Medical (six) Branch hours as needed for Pain (scale 7-10). traMADol 2019-0 Yes [id number] 50mg Take 1 [facility] (ULTRAM) 50 9-18 tablet by ity of mg tablet 00:00: mouth [place] 00 every 6 Medical (six) Branch hours as needed for Pain (scale 7-10). traMADol 2019-0 Yes [id number] 50mg Take 1 [facility] (ULTRAM) 50 9-18 tablet by ity of mg tablet 00:00: mouth [place] 00 every 6 Medical (six) Branch hours as needed for Pain (scale 7-10). traMADol 2018-0 Yes [id number] 50mg Take 1 [facility] (ULTRAM) 50 9-18 tablet by ity of mg tablet 00:00: mouth [place] 00 every 6 Medical (six) Branch hours as needed for Pain (scale 7-10). traMADol 2018-0 Yes [id number] 50mg Take 1 [facility] (ULTRAM) 50 9-18 tablet by ity of mg tablet 00:00: mouth [place] 00 every 6 Medical (six) Branch hours as needed for Pain (scale 7-10). traMADol 2018-0 Yes [id number] 50mg Take 1 [facility] (ULTRAM) 50 9-18 tablet by ity of mg tablet 00:00: mouth [place] 00 every 6 Medical (six) Branch hours as needed for Pain (scale 7-10). traMADol 2019-0 Yes [id number] 50mg Take 1 [facility] (ULTRAM) 50 9-18 tablet by ity of mg tablet 00:00: mouth [place] 00 every 6 Medical (six) Branch hours as needed for Pain (scale 7-10). traMADol 2019-0 Yes [id number] 50mg Take 1 [facility] (ULTRAM) 50 9-18 tablet by ity of mg tablet 00:00: mouth [place] 00 every 6 Medical (six) Branch hours as needed for Pain (scale 7-10). traMADol 2019-0 Yes [id number] 50mg Take 1 [facility] (ULTRAM) 50 9-18 tablet by ity of mg tablet 00:00: mouth [place] 00 every 6 Medical (six) Branch hours as needed for Pain (scale 7-10). traMADol 2019-0 Yes [id number] 50mg Take 1 [facility] (ULTRAM) 50 9-18 tablet by ity of mg tablet 00:00: mouth [place] 00 every 6 Medical (six) Branch hours as needed for Pain (scale 7-10). traMADol Yes [id number] 50mg Take 1 [facility] (ULTRAM) 50 9-18 tablet by ity of mg tablet 00:00: mouth [place] 00 every 6 Medical (six) Branch hours as needed for Pain (scale 7-10). traMADol Yes [id number] 50mg Take 1 [facility] (ULTRAM) 50 9-18 tablet by ity of mg tablet 00:00: mouth [place] 00 every 6 Medical (six) Branch hours as needed for Pain (scale 7-10). traMADol Yes [id number] 50mg Take 1 [facility] (ULTRAM) 50 9-18 tablet by ity of mg tablet 00:00: mouth [place] 00 every 6 Medical (six) Branch hours as needed for Pain (scale 7-10). traMADol 2022- No [id number] 50mg Take 1 [facility] (ULTRAM) 50 [...] MOUTH ONCE [place] tablet [facility] 1 [facility] (ADALAT CC) 8-28 TABLET BY ity of 60 MG 24 hr 00:00: MOUTH ONCE [place] tablet 00 DAILY MD Zamzam ackerman [facility] NIFEdipine Yes 60mg QD Take 60 mg M ethodi CC (ADALAT 8-[address] [facility]) 60 MG 00:00: daily. [facility] 24 hr 00 l tablet NIFEdipine Yes TAKE 1 Unive rs (ADALAT CC) 8-28 TABLET BY ity of 60 MG 24 hr 00:00: MOUTH ONCE [place] [facility] 1 tablet Me thodi [...] ity of ophthalmic 00:00: [place] emulsion 00 [facility] RESTASIS Yes Univers 0.05 % 8-14 ity of ophthalmic 00:00: [place] emulsion 00 [facility] RESTASIS Yes Univers 0.05 % 8-14 ity of ophthalmic 00:00: [place] emulsion 00 [facility] glimepiride Yes Univer s (AMARYL) 2 7-29 ity of mg tablet 00:00: [place] 00 [facility] Un[facility] (AMARYL) 2 7-29 ity of mg tablet 00:00: [place] 00 MD [facility] glimepiride Yes Univer s (AMARYL) 2 7-29 ity of mg tablet 00:00: [place] [facility]KE 1 Unive rs (PriLOSEC) 7-22 CAPSULE BY ity of 40 MG 00:00: MOUTH ONCE [place] capsule 00 [facility]- Yes TAKE 1 Unive rs (PriLOSEC) 7-22 CAPSULE BY ity of 40 MG 00:00: MOUTH ONCE [place] capsule 00 [facility]- Yes TAKE 1 Unive rs (PriLOSEC) 7-22 CAPSULE BY ity of 40 MG 00:00: MOUTH ONCE [place] capsule [facility]ocal[facility] 2018- Yes TAKE 1 Meth mirian rol 6-04 [...] l (241.3 mg DAILY magnesium) tablet magnesium Yes TAKE 2 [facility] oxide 4-[address] (MAG-OX) 00:00: MOUTH 4 Hospit a 400 mg 00 TIMES l (241.3 mg DAILY magnesium) tablet magnesium Yes TAKE 2 [facility] oxide 4-[address] (MAG-OX) 00:00: MOUTH 4 [facility] a 400 mg 00 TIMES l (241.3 mg DAILY magnesium) tablet magnesium Yes TAKE 2 [facility] oxide 4-[address] (MAG-OX) 00:00: MOUTH 4 [facility] a 400 mg 00 TIMES l (241.3 mg DAILY magnesium) tablet metFORMIN 2018- Yes 1000mg Q.5D Take 1,000 [facility] (GLUCOPHAGE [...] times a day. lancets 33 2019-0 Yes [id number] Use as Univers gauge Misc 3-06 directed. ity of 00:00: E11.21. [place] 00 Check once Medical daily Branch lancets 33 2019-0 Yes [id number] Use as Univers gauge Misc 3-06 directed. ity of 00:00: E11.. [place] 00 Check once Medical daily Branch lancets 33 2019-0 Yes [id number] Use as Univers gauge Misc 3-06 directed. ity of 00:00: E11.. [place] 00 Check once Medical daily Branch lancets 33 2019-0 Yes [id number] Use as Univers gauge Misc 3-06 directed. ity of 00:00: E11.. [place] 00 Check once Medical daily Branch lancets 33 2019-0 Yes [id number] Use as Univers gauge Misc 3-06 directed. ity of 00:00: E11.. [place] 00 Check once Medical daily Branch lancets 33 2019-0 Yes [id number] Use as Univers gauge Misc 3-06 directed. ity of 00:00: E11.. [place] 00 Check once Medical daily Branch lancets 33 2019-0 Yes [id number] Use as Univers gauge Misc 3-06 directed. ity of 00:00: E11.. [place] 00 Check once Medical daily Branch lancets 33 2019-0 Yes [id number] Use as Univers gauge Misc 3-06 directed. ity of 00:00: E11.. [place] 00 Check once Medical daily Branch lancets 33 2019-0 Yes [id number] Use as Univers gauge Misc 3-06 directed. ity of 00:00: E11.21. [place] 00 Check once Medical daily Branch lancets 33 2019-0 Yes [id number] Use as Univers gauge Misc 3-06 directed. ity of 00:00: E11.21. [place] 00 Check once Medical daily Branch lancets 33 2019-0 Yes [id number] Use as Univers gauge Misc 3-06 directed. ity of 00:00: E11.21. [place] 00 Check once Medical daily Branch lancets 33 2019-0 Yes [id number] Use as Univers gauge Misc 3-06 directed. ity of 00:00: E11.21. [place] 00 Check once Medical daily Branch lancets 33 2019-0 Yes [id number] Use as Univers gauge Misc 3-06 directed. ity of 00:00: E11.. [place] 00 Check once Medical daily Branch lancets 33 2019-0 Yes [id number] Use as Univers gauge Misc 3-06 directed. ity of 00:00: E11.. [place] 00 Check once Medical daily Branch lancets 33 2019-0 Yes [id number] Use as Univers gauge Misc 3-06 directed. ity of 00:00: E11.. [place] 00 Check once Medical daily Branch lancets 33 2019-0 Yes [id number] Use as Univers gauge Misc 3-06 directed. ity of 00:00: E11.. [place] 00 Check once Medical daily Branch lancets 33 2019-0 Yes [id number] Use as Univers gauge Misc 3-06 directed. ity of 00:00: E11.. [place] 00 Check once Medical daily Branch lancets 33 2019-0 Yes [id number] Use as Univers gauge Misc 3-06 directed. ity of 00:00: E11.. [place] 00 Check once Medical daily Branch lancets 33 2019-0 Yes [id number] Use as Univers gauge Misc 3-06 directed. ity of 00:00: E11.. [place] 00 Check once Medical daily Branch lancets 33 2019-0 Yes [id number] Use as Univers gauge Misc 3-06 directed. ity of 00:00: E11.. [place] 00 Check once Medical daily Branch lancets 33 2019-0 Yes [id number] Use as Univers gauge Misc 3-06 directed. ity of 00:00: E11.21. [place] 00 Check once Medical daily Branch lancets 33 2019-0 Yes [id number] Use as Univers gauge Misc 3-06 directed. ity of 00:00: E11.. [place] 00 Check once Medical daily Branch lancets 33 2019-0 Yes [id number] Use as Univers gauge Misc 3-06 directed. ity of 00:00: E11.21. [place] 00 Check once Medical daily Branch lancets 33 2019-0 Yes [id number] Use as Univers gauge Misc 3-06 directed. ity of 00:00: E11.21. [place] 00 Check once Medical daily Branch lancets 33 2019-0 Yes [id number] Use as Univers gauge Misc 3-06 directed. ity of 00:00: E11.21. [place] 00 Check once Medical daily Branch lancets 33 2019-0 Yes [id number] Use as Univers gauge Misc 3-06 directed. ity of 00:00: E11.21. [place] 00 Check once Medical daily Branch lancets 33 2019-0 Yes [id number] Use as Univers gauge Misc 3-06 directed. ity of 00:00: E11.. [place] 00 Check once Medical daily Branch lancets 33 2019-0 Yes [id number] Use as Univers gauge Misc 3-06 directed. ity of 00:00: E11.. [place] 00 Check once Medical daily Branch lancets 33 2019-0 Yes [id number] Use as Univers gauge Misc 3-06 directed. ity of 00:00: E11.. [place] 00 Check once Medical daily Branch lancets 33 2019-0 Yes [id number] Use as [facility] gauge Misc 3-06 directed. ity of 00:00: E11.. [place] 00 Check once Medical daily Branch lancets 33 2019-0 Yes [id number] Use as Univers gauge Misc 3-06 directed. ity of 00:00: E11.. [place] 00 Check once Medical daily Branch lancets 33 2019-0 Yes [id number] Use as Univers gauge Misc 3-06 directed. ity of 00:00: E11.. [place] 00 Check once Medical daily Branch lancets 33 2019-0 Yes [id number] Use as [facility] gauge Misc 3-06 directed. ity of 00:00: E11.21. [place] 00 Check once Medical daily Branch lancets 33 2019-0 Yes [id number] Use as Univers gauge Misc 3-06 directed. ity of 00:00: E11.21. [place] 00 Check once Medical daily Branch lancets 33 2019-0 Yes [id number] Use as Univers gauge Misc 3-06 directed. ity of 00:00: E11.21. [place] 00 Check once Medical daily Branch lancets 33 2019-0 Yes [id number] Use as Univers gauge Misc 3-06 directed. ity of 00:00: E11.21. [place] 00 Check once Medical daily Branch lancets 33 2019-0 Yes [id number] Use as [facility] gauge Misc 3-06 directed. ity of 00:00: E11.21. [place] 00 Check once Medical daily Branch lancets 33 2019-0 Yes [id number] Use as [facility] gauge Misc 3-06 directed. ity of 00:00: E11.. [place] 00 Check once Medical daily Branch lancets 33 2019-0 Yes [id number] Use as [facility] gauge Misc 3-06 directed. ity of 00:00: E11.. [place] 00 Check once Medical daily Branch lancets 33 2019-0 Yes [id number] Use as [facility] gauge Misc 3-06 directed. ity of 00:00: E11.. [place] 00 Check once Medical daily Branch lancets 33 2019-0 Yes [id number] Use as Univers gauge Misc 3-06 directed. ity of 00:00: E11.. [place] 00 Check once Medical daily Branch lancets 33 2019-0 Yes [id number] Use as Univers gauge Misc 3-06 directed. ity of 00:00: E11.. [place] 00 Check once Medical daily Branch lancets 33 2019-0 Yes [id number] Use as Univers gauge Misc 3-06 directed. ity of 00:00: E11.. [place] 00 Check once Medical daily Branch lancets 33 2019-0 Yes [id number] Use as Univers gauge Misc 3-06 directed. ity of 00:00: E11.. [place] 00 Check once Medical daily Branch lancets 33 2019-0 Yes [id number] Use as [facility] gauge Misc 3-06 directed. ity of 00:00: E11.. [place] 00 Check once Medical daily Branch lancets 33 2019-0 Yes [id number] Use as [facility] gauge Misc 3-06 directed. ity of 00:00: E11.21. [place] 00 Check once Medical daily Branch lancets 33 2019-0 Yes [id number] Use as Univers gauge Misc 3-06 directed. ity of 00:00: E11.. [place] 00 Check once Medical daily Branch lancets 33 2019-0 Yes [id number] Use as Univers gauge Misc 3-06 directed. ity of 00:00: E11.. 00 Check once Medical daily Branch lancets 33 2019-0 Yes [id number] Use as Univers gauge Misc 3-06 directed. ity of 00:00: E11.. 00 Check once Medical daily Branch lancets 33 2019-0 Yes [id number] Use as Univers gauge Misc 3-06 directed. ity of 00:00: . 00 Check once Medical daily Branch lancets 33 2019-0 Yes [id number] Use as Univers gauge Misc 3-06 directed. ity of 00:00: . 00 Check once Medical daily Branch lancets 33 2019-0 Yes [id number] Use as Univers gauge Misc 3-06 directed. ity of 00:: . [place] 00 Check once Medical daily Branch lancets 33 2019-0 Yes [id number] Use as Univers gauge Misc 3-06 directed. ity of 00:: . [place] 00 Check once Medical daily Branch lancets 33 2019-0 Yes [id number] Use as Univers gauge Misc 3-06 directed. ity of 00:00: . 00 Check once Medical daily Branch lancets 33 2019-0 Yes [id number] Use as Univers gauge Misc 3-06 directed. ity of 00:: . [place] 00 Check once Medical daily Branch lancets 33 2019-0 Yes [id number] Use as Univers gauge Misc 3-06 directed. ity of 00:00: . 00 Check once Medical daily Branch metFORMIN 2019-0 Yes 1000mg Q.5D Take 1,000 [facility] (GLUCOPHAGE 3-[address] ) 1,000 mg 00:00: mouth 2 [facility] tablet 00 (two) l times a day. lancets 33 2019-0 2023- No [id number] Use as [facility] gauge Misc 3-06 02-06 directed. ity of 00:00: 00:00 E11.21. [place] 00 :00 Check once Medical daily Branch [...] BEDTIME l STOP TAKING ATORVASTAT IN rosuvastati [id number] Yes TAKE 1 Meth mirian n (CRESTOR) 2-[address] 20 MG 00:00: [facility]TH [facility] tablet 00 BEDTIME l STOP TAKING ATORVASTAT IN inhalationa 2019-0 Yes [id number] May Uni vers l spacing 1-11 substitute ity of device 00:00: other spacing retail security professional Branch inhalationa 2019-0 Yes [id number] May Uni vers l spacing 1-11 substitute ity of device 00:00: other spacing retail security professional Branch inhalationa 2019-0 Yes [id number] May Uni vers l spacing 1-11 substitute ity of device 00:00: other spacing retail security professional Branch inhalationa 2019-0 Yes [id number] May Uni vers l spacing 1-11 substitute ity of device 00:00: other spacing retail security professional Branch inhalationa 2019-0 Yes [id number] May Uni vers l spacing 1-11 substitute ity of device 00:00: other spacing retail security professional Branch inhalationa 2019-0 Yes [id number] May Uni vers l spacing 1-11 substitute ity of device 00:00: other spacing retail security professional Branch inhalationa 2019-0 Yes [id number] May Uni vers l spacing 1-11 substitute ity of device 00:00: other spacing retail security professional Branch inhalationa 2019-0 Yes [id number] May Uni vers l spacing 1-11 substitute ity of device 00:00: other spacing retail security professional Branch inhalationa 2019-0 Yes [id number] May Uni vers l spacing 1-11 substitute ity of device 00:00: other spacing retail security professional Branch inhalationa 2019-0 Yes [id number] May Uni vers l spacing 1-11 substitute ity of device 00:00: other spacing retail security professional Branch inhalationa 2019-0 Yes [id number] May Uni vers l spacing 1-11 substitute ity of device 00:00: other spacing retail security professional Branch inhalationa 2019-0 Yes [id number] May Uni vers l spacing 1-11 substitute ity of device 00:00: other spacing retail security professional Branch inhalationa 2019-0 Yes [id number] May Uni vers l spacing 1-11 substitute ity of device 00:00: other spacing retail security professional Branch inhalationa 2019-0 Yes [id number] May Uni vers l spacing 1-11 substitute ity of device 00:00: other spacing retail security professional Branch inhalationa 2019-0 Yes [id number] May Uni vers l spacing 1-11 substitute ity of device 00:00: other spacing retail security professional Branch inhalationa 2019-0 Yes [id number] May Uni vers l spacing 1-11 substitute ity of device 00:00: other spacing retail security professional Branch inhalationa 2019-0 Yes [id number] May Uni vers l spacing 1-11 substitute ity of device 00:00: other spacing retail security professional Branch inhalationa 2019-0 Yes [id number] May Uni vers l spacing 1-11 substitute ity of device 00:00: other spacing retail security professional Branch inhalationa 2019-0 Yes [id number] May Uni vers l spacing 1-11 substitute ity of device 00:00: other spacing retail security professional Branch inhalationa 2019-0 Yes [id number] May Uni vers l spacing 1-11 substitute ity of device 00:00: other spacing retail security professional Branch inhalationa 2019-0 Yes [id number] May Uni vers l spacing 1-11 substitute ity of device 00:00: other spacing retail security professional Branch inhalationa 2019-0 Yes [id number] May Uni vers l spacing 1-11 substitute ity of device 00:00: other spacing retail security professional Branch inhalationa 2019-0 Yes [id number] May Uni vers l spacing 1-11 substitute ity of device 00:00: other spacing retail security professional Branch inhalationa 2019-0 Yes [id number] May Uni vers l spacing 1-11 substitute ity of device 00:00: other spacing retail security professional Branch inhalationa 2019-0 Yes [id number] May Uni vers l spacing 1-11 substitute ity of device 00:00: other spacing retail security professional Branch inhalationa 2019-0 Yes [id number] May Uni vers l spacing 1-11 substitute ity of device 00:00: other spacing retail security professional Branch inhalationa 2019-0 Yes [id number] May Uni vers l spacing 1-11 substitute ity of device 00:00: other spacing retail security professional Branch inhalationa 2019-0 Yes [id number] May Uni vers l spacing 1-11 substitute ity of device 00:00: other spacing retail security professional Branch inhalationa 2019-0 Yes [id number] May Uni vers l spacing 1-11 substitute ity of device 00:00: other spacing retail security professional Branch inhalationa 2019-0 Yes [id number] May Uni vers l spacing 1-11 substitute ity of device 00:00: other spacing retail security professional Branch inhalationa 2019-0 Yes [id number] May Uni vers l spacing 1-11 substitute ity of device 00:00: other spacing retail security professional Branch inhalationa 2019-0 Yes [id number] May Uni vers l spacing 1-11 substitute ity of device 00:00: other spacing retail security professional Branch inhalationa 2019-0 Yes [id number] May Uni vers l spacing 1-11 substitute ity of device 00:00: other spacing retail security professional Branch inhalationa 2019-0 Yes [id number] May Uni vers l spacing 1-11 substitute ity of device 00:00: other spacing retail security professional Branch inhalationa 2019-0 Yes [id number] May Uni vers l spacing 1-11 substitute ity of device 00:00: other spacing retail security professional Branch inhalationa 2019-0 Yes [id number] May Uni vers l spacing 1-11 substitute ity of device 00:00: other spacing retail security professional Branch inhalationa 2019-0 Yes [id number] May Uni vers l spacing 1-11 substitute ity of device 00:00: other spacing retail security professional Branch inhalationa 2019-0 Yes [id number] May Uni vers l spacing 1-11 substitute ity of device 00:00: other spacing retail security professional Branch inhalationa 2019-0 Yes [id number] May Uni vers l spacing 1-11 substitute ity of device 00:00: other spacing retail security professional Branch inhalationa 2019-0 Yes [id number] May Uni vers l spacing 1-11 substitute ity of device 00:00: other spacing retail security professional Branch inhalationa 2019-0 Yes [id number] May Uni vers l spacing 1-11 substitute ity of device 00:00: other spacing retail security professional Branch inhalationa 2019-0 Yes [id number] May Uni vers l spacing 1-11 substitute ity of device 00:00: other spacing retail security professional Branch inhalationa 2019-0 Yes [id number] May Uni vers l spacing 1-11 substitute ity of device 00:00: other spacing retail security professional Branch inhalationa 2019-0 Yes [id number] May Uni vers l spacing 1-11 substitute ity of device 00:00: other spacing retail security professional Branch inhalationa 2019-0 Yes [id number] May Uni vers l spacing 1-11 substitute ity of device 00:00: other spacing retail security professional Branch inhalationa 2019-0 Yes [id number] May Uni vers l spacing 1-11 substitute ity of device 00:00: other spacing retail security professional Branch inhalationa 2019-0 Yes [id number] May Uni vers l spacing 1-11 substitute ity of device 00:00: other spacing retail security professional Branch inhalationa 2019-0 Yes [id number] May Uni vers l spacing 1-11 substitute ity of device 00:00: other spacing retail security professional Branch inhalationa 2019-0 Yes [id number] May Uni vers l spacing 1-11 substitute ity of device 00:00: other spacing retail security professional Branch inhalationa 2019-0 Yes [id number] May Uni vers l spacing 1-11 substitute ity of device 00:00: other spacing retail security professional Branch inhalationa 2019-0 Yes [id number] May Uni vers l spacing 1-11 substitute ity of device 00:00: other spacing retail security professional Branch inhalationa 2019-0 Yes [id number] May Uni vers l spacing 1-11 substitute ity of device 00:00: other spacing retail security professional Branch inhalationa 2019-0 Yes [id number] May Uni vers l spacing 1-11 substitute ity of device 00:00: other spacing retail security professional Branch inhalationa 2019-0 Yes [id number] May Uni vers l spacing 1-11 substitute ity of device 00:00: other spacing retail security professional Branch inhalationa 2019-0 Yes [id number] May Uni vers l spacing 1-11 substitute ity of device 00:00: other spacing retail security professional Branch inhalationa 2019-0 Yes [id number] May Uni vers l spacing 1-11 substitute ity of device 00:00: other spacing retail security professional Branch inhalationa 2019-0 Yes [id number] May Uni vers l spacing 1-11 substitute ity of device 00:00: other spacing retail security professional Branch inhalationa 2019-0 Yes [id number] May Uni vers l spacing 1-11 substitute ity of device 00:00: other spacing retail security professional Branch inhalationa 2019-0 Yes [id number] May Uni vers l spacing 1-11 substitute ity of device 00:00: other spacing retail security professional Branch inhalationa 2019-0 Yes [id number] May Uni vers l spacing 1-11 substitute ity of device 00:00: other spacing retail security professional Branch inhalationa 2019-0 Yes [id number] May Uni vers l spacing 1-11 substitute ity of device 00:00: other spacing retail security professional Branch inhalationa 2019-0 Yes [id number] May Uni vers l spacing 1-11 substitute ity of device 00:00: other spacing retail security professional Branch inhalationa 2019-0 Yes [id number] May Uni vers l spacing 1-11 substitute ity of device 00:00: other spacing retail security professional Branch inhalationa 2019-0 Yes [id number] May Uni vers l spacing 1-11 substitute ity of device 00:00: other spacing retail security professional Branch inhalationa 2019-0 Yes [id number] May Uni vers l spacing 1-11 substitute ity of device 00:00: other spacing retail security professional Branch inhalationa 2019-0 Yes [id number] May Uni vers l spacing 1-11 substitute ity of device 00:00: other spacing retail security professional Branch inhalationa 2019-0 Yes [id number] May Uni vers l spacing 1-11 substitute ity of device 00:00: other spacing retail security professional Branch inhalationa 2019-0 Yes [id number] May Uni vers l spacing 1-11 substitute ity of device 00:00: other spacing retail security professional Branch inhalationa 2019-0 Yes [id number] May Uni vers l spacing 1-11 substitute ity of device 00:00: other spacing retail security professional Branch inhalationa 2019-0 Yes [id number] May Uni vers l spacing 1-11 substitute ity of device 00:00: other spacing retail security professional Branch inhalationa 2019-0 Yes [id number] May Uni vers l spacing 1-11 substitute ity of device 00:00: other spacing retail security professional Branch inhalationa 2019-0 Yes [id number] May Uni vers l spacing 1-11 substitute ity of device 00:00: other spacing retail security professional Branch inhalationa 2019-0 Yes [id number] May Uni vers l spacing 1-11 substitute ity of device 00:00: other spacing retail security professional Branch inhalationa 2019-0 Yes [id number] May Uni vers l spacing 1-11 substitute ity of device 00:00: other spacing retail security professional Branch inhalationa 2019-0 Yes [id number] May Uni vers l spacing 1-11 substitute ity of device 00:00: other spacing retail security professional Branch inhalationa 2019-0 Yes [id number] May Uni vers l spacing 1-11 substitute ity of device 00:00: other spacing retail security professional Branch inhalationa 2019-0 Yes [id number] May Uni vers l spacing 1-11 substitute ity of device 00:00: other spacing retail security professional Branch inhalationa 2019-0 Yes [id number] May Uni vers l spacing 1-11 substitute ity of device 00:00: other spacing retail security professional Branch inhalationa 2019-0 Yes [id number] May Uni vers l spacing 1-11 substitute ity of device 00:00: other spacing retail security professional Branch inhalationa 2019-0 Yes [id number] May Uni vers l spacing 1-11 substitute ity of device 00:00: other spacing retail security professional Branch inhalationa 2019-0 Yes [id number] May Uni vers l spacing 1-11 substitute ity of device 00:00: other spacing retail security professional Branch inhalationa 2019-0 Yes [id number] May Uni vers l spacing 1-11 substitute ity of device 00:00: other spacing retail security professional Branch inhalationa 2019-0 Yes [id number] May Uni vers l spacing 1-11 substitute ity of device 00:00: other spacing retail security professional Branch inhalationa 2019-0 Yes [id number] May Uni vers l spacing 1-11 substitute ity of device 00:00: other spacing retail security professional Branch inhalationa 2019-0 Yes [id number] May Uni vers l spacing 1-11 substitute ity of device 00:00: other spacing retail security professional Branch inhalationa 2019-0 Yes [id number] May Uni vers l spacing 1-11 substitute ity of device 00:00: other spacing retail security professional Branch inhalationa 2019-0 Yes [id number] May Uni vers l spacing 1-11 substitute ity of device 00:00: other spacing retail security professional Branch inhalationa 2019-0 Yes [id number] May Uni vers l spacing 1-11 substitute ity of device 00:00: other spacing retail security professional Branch inhalationa 2019-0 Yes [id number] May Uni vers l spacing 1-11 substitute ity of device 00:00: other spacing retail security professional Branch inhalationa 2019-0 Yes [id number] May Uni vers l spacing 1-11 substitute ity of device 00:00: other spacing retail security professional Branch inhalationa 2019-0 Yes [id number] May Uni vers l spacing 1-11 substitute ity of device 00:00: other spacing retail security professional Branch inhalationa 2019-0 Yes [id number] May Uni vers l spacing 1-11 substitute ity of device 00:00: other spacing retail security professional Branch inhalationa 2019-0 Yes [id number] May Uni vers l spacing 1-11 substitute ity of device 00:00: other spacing retail security professional Branch inhalationa 2019-0 Yes [id number] May Uni vers l spacing 1-11 substitute ity of device 00:00: other spacing retail security professional Branch inhalationa 2019-0 Yes [id number] May Uni vers l spacing 1-11 substitute ity of device 00:00: other spacing retail security professional Branch inhalationa 2019-0 Yes [id number] May Uni vers l spacing 1-11 substitute ity of device 00:00: other spacing retail security professional Branch inhalationa 2019-0 Yes [id number] May Uni vers l spacing 1-11 substitute ity of device 00:00: other spacing retail security professional Branch inhalationa 2019-0 Yes [id number] May Uni vers l spacing 1-11 substitute ity of device 00:00: other spacing retail security professional Branch inhalationa 2019-0 Yes [id number] May [facility] vers l spacing 1-11 substitute ity of device 00:00: other spacing retail security professional Branch inhalationa 2019-0 Yes [id number] May Uni vers l spacing 1-11 substitute ity of device 00:00: other spacing retail security professional Branch inhalationa 2019-0 Yes [id number] May Uni vers l spacing 1-11 substitute ity of device 00:00: other spacing retail security professional Branch inhalationa 2019-0 Yes [id number] May Uni vers l spacing 1-11 substitute ity of device 00:00: other spacing retail security professional Branch inhalationa 2019-0 Yes [id number] May Uni vers l spacing 1-11 substitute ity of device 00:00: other spacing retail security professional Branch inhalationa 2019-0 Yes [id number] May Uni vers l spacing 1-11 substitute ity of device 00:00: other spacing retail security professional Branch inhalationa 2019-0 Yes [id number] May Uni vers l spacing 1-11 substitute ity of device 00:00: other spacing retail security professional Branch inhalationa 2019-0 Yes [id number] May Uni vers l spacing 1-11 substitute ity of device 00:00: other spacing retail security professional Branch inhalationa 2019-0 Yes [id number] May Uni vers l spacing 1-11 substitute ity of device 00:00: other spacing retail security professional Branch inhalationa 2019-0 Yes [id number] May Uni vers l spacing 1-11 substitute ity of device 00:00: other spacing retail security professional Branch inhalationa 2019-0 Yes [id number] May Uni vers l spacing 1-11 substitute ity of device 00:00: other spacing retail security professional Branch inhalationa 2019-0 Yes [id number] May Uni vers l spacing 1-11 substitute ity of device 00:00: other spacing retail security professional Branch inhalationa 2019-0 Yes [id number] May Uni vers l spacing 1-11 substitute ity of device 00:00: other spacing retail security professional Branch inhalationa 2019-0 Yes [id number] May Uni vers l spacing 1-11 substitute ity of device 00:00: other spacing retail security professional Branch cyanocobala 2018-0 Yes 500ug Take 500 U nivers min 2-21 mcg by ity of (VITAMIN 00:00: mouth. [place] B-12) 500 00 [facility] Yes 500ug Take 500 U nivers min 2-21 mcg by ity of (VITAMIN 00:00: mouth. [place] B-12) 500 00 MD mcg tablet [facility] Center cyanocobala 0 Yes 500ug Take 500 U nivers min 2-21 mcg by ity of (VITAMIN 00:00: mouth. [place] B-12) 500 00 MD mcg tablet [facility] atorvastati 2015-1 Yes 10mg QD Take [address] [facility] (LIPITOR) 0-02 by mouth [facility] 10 MG 14:59: daily. Medical tablet 12 [place] metFORMIN 2014-04 Yes 1000mg Take 1,[address] [facility] (GLUCOPHAGE 0-02 mg by [facility] ) 1000 MG 14:59: mouth 2 Medic al tablet 12 (two) Center times daily with breakfast and dinner. metoprolol 2014-04 Yes 100mg QD Take [address] (TOPROL-XL) 0-02 mg [facility] 100 MG 24 14:59: mouth Medical hr tablet 12 daily. [place] aspirin 81 2014-04 Yes 81mg QD Take [address] MG chewable 0-02 by mouth [facility] tablet 14:59: daily. [address] esomeprazol 2014-04 Yes 20mg QD Take [address] [facility] (NEXIUM) 0-02 by mouth [facility] 20 MG 14:59: daily. Medical capsule [address] [place] [address] lisinopril 2014-04 Yes 10mg QD Take [address] (PRINIVIL,Z 0-02 by mouth [facility] ESTRIL) 10 14:59: daily. Medic al MG tablet 12 [place] glipiZIDE 2014-04 Yes 10mg Take 10 mg [...] 14:59: mouth Medical hr tablet 12 daily. [place] aspirin 81 2014-04 Yes 81mg QD Take [address] MG chewable 0-02 by mouth [facility] tablet 14:59: daily. [address] esomeprazol 2014-04 Yes 20mg QD Take [address] [facility] (NEXIUM) 0-02 by mouth [facility] 20 MG 14:59: daily. Medical capsule [address] [place] [address] lisinopril 2014-04 Yes 10mg QD Take [address] (PRINIVIL,Z 0-02 by mouth [facility] ESTRIL) 10 14:59: daily. Medic al MG tablet 12 [place] glipiZIDE 2014-04 Yes 10mg Take [address] [facility] [address] [facility] (GLUCOTROL) 0-02 by mouth 2 [facility] k[facility] 10 MG 14:59: (two) Medical tablet 12 times Center daily before meals. atorvastati 2014-04 Yes 10mg QD Take [address] [facility] (LIPITOR) 0-02 by mouth [facility] 10 MG 14:59: daily. Medical tablet 12 [place] atorvastati 2014-04 Yes 10mg QD Take [address] [facility] (LIPITOR) 0-02 by mouth [facility] 10 MG 14:59: daily. Medical tablet 12 [place] metFORMIN 2014-04 Yes 1000mg Take 1,[address] [facility] [address] (GLUCOPHAGE 0-02 mg by [facility] ) 1000 MG 14:59: mouth 2 Medic al tablet 12 (two) Center times daily with breakfast and dinner. metoprolol 2014-04 Yes 100mg QD Take [address] (TOPROL-XL) 0-02 [facility] 100 MG 24 14:59: mouth Medical hr tablet 12 daily. [place] aspirin 81 2014-04 Yes 81mg QD Take [address] MG chewable 0-02 by mouth [facility] tablet 14:59: daily. Medical [address] [place] [address] esomeprazol 2014-04 Yes 20mg QD Take [address] [facility] (NEXIUM) 0-02 by mouth [facility] 20 MG 14:59: daily. Medical capsule 12 [place] lisinopril 2014-04 Yes 10mg QD Take [address] (PRINIVIL,Z 0-02 by mouth [facility] ESTRIL) 10 14:59: daily. Medic al MG tablet [address] [place] [address] glipiZIDE 2014-04 Yes 10mg Take [address] [facility] [address] (GLUCOTROL) 0-02 by mouth 2 Zoey kes 10 MG 14:59: (two) Medical tablet 12 times Center daily before meals. Immunizations Ordered Filled Immunization Date Status Comments [facility] e Immunization Name Name Influenza Virus 2022-06-18 [...] 65+ Remdesivir 2022-06-11 Completed University of 00:00:00 [place] [...] Branch Remdesivir 2022-06-11 Completed University [facility] 00:00:00 [place] [facility] Remdesivir 2022-06-11 Completed University of 00:00:00 [place] [facility] Remdesivir 2022-06-11 Completed University of 00:00:00 [place] [facility] Remdesivir 2022-06-11 Completed University of 00:00:00 [place] [facility] Remdesivir 2022-06-11 Completed University of 00:00:00 [place] [facility] Remdesivir 2022-06-11 Completed University of 00:00:00 [place] [facility] Remdesivir 2022-06-11 Completed University of 00:00:00 [place] [facility] Remdesivir 2022-06-11 Completed University of 00:00:00 [place] [facility] Remdesivir 2022-06-11 Completed University of 00:00:00 [place] [facility] Remdesivir 2022-06-11 Completed University of 00:00:00 [place] [facility] Remdesivir 2022-06-11 Completed University of 00:00:00 [place] [facility] Remdesivir 2022-06-11 Completed University of 00:00:00 [place] [facility] Remdesivir 2022-06-11 Completed University of 00:00:00 [place] [facility] Remdesivir 2022-06-11 Completed University of 00:00:00 [place] [facility] Remdesivir 2022-06-11 Completed University of 00:00:00 [place] [facility] Remdesivir 2022-06-11 Completed University of 00:00:00 [place] [facility] Remdesivir 2022-06-11 Completed University of 00:00:00 [place] [facility] Remdesivir 2022-06-11 Completed University of 00:00:00 [place] [facility] Remdesivir 2022-06-11 Completed University of 00:00:00 [place] [facility] Remdesivir 2022-06-11 Completed University of 00:00:00 [place] [facility] Remdesivir 2022-06-11 Completed University of 00:00:00 [place] [facility] Remdesivir 2022-06-11 Completed University of 00:00:00 [place] [facility] Remdesivir 2022-06-11 Completed University of 00:00:00 [place] [facility] Remdesivir 2022-06-11 Completed University of 00:00:00 [place] [facility] Remdesivir 2022-06-11 Completed University of 00:00:00 [place] [facility] Remdesivir 2022-06-11 Completed University of 00:00:00 [place] [facility] Remdesivir 2022-06-11 Completed University of 00:00:00 [place] [facility] Remdesivir 2022-06-11 Completed University of 00:00:00 [place] [facility] Remdesivir 2022-06-11 Completed University of 00:00:00 [place] [facility] Remdesivir 2022-06-11 Completed University of 00:00:00 [place] [facility] Remdesivir 2022-06-11 Completed University of 00:00:00 [place] [facility] Remdesivir 2022-06-11 Completed University of 00:00:00 [place] [facility] Remdesivir 2022-06-11 Completed University of 00:00:00 [place] [facility] Remdesivir 2022-06-11 Completed University of 00:00:00 [place] [facility] Remdesivir 2022-06-11 Completed University of 00:00:00 [place] [facility] Remdesivir 2022-06-11 Completed University of 00:00:00 [place] [facility] Remdesivir 2022-06-11 Completed University of 00:00:00 [place] [facility] Remdesivir 2022-06-11 Completed University of 00:00:00 [place] [facility] Remdesivir 2022-06-11 Completed University of 00:00:00 [place] [facility] Remdesivir 2022-06-10 Completed University of 00:00:00 [place] [facility] Remdesivir 2022-06-10 Completed University of 00:00:00 [place] [facility] Remdesivir 2022-06-10 Completed University of 00:00:00 [place] [facility] Remdesivir 2022-06-10 Completed University of 00:00:00 [place] [facility] Remdesivir 2022-06-10 Completed University of 00:00:00 [place] [facility] Remdesivir 2022-06-10 Completed University of 00:00:00 [place] [facility] Remdesivir 2022-06-10 Completed University of 00:00:00 [place] [facility] Remdesivir 2022-06-10 Completed University of 00:00:00 [place] [facility] Remdesivir 2022-06-10 Completed University of 00:00:00 [place] [facility] Remdesivir 2022-06-10 Completed University of 00:00:00 [place] [facility] Remdesivir 2022-06-10 Completed University of 00:00:00 [place] [facility] Remdesivir 2022-06-10 Completed University of 00:00:00 [place] [facility] Remdesivir 2022-06-10 Completed University of 00:00:00 [place] [facility] Remdesivir 2022-06-10 Completed University of 00:00:00 [place] [facility] Remdesivir 2022-06-10 Completed University of 00:00:00 [place] [facility] Remdesivir 2022-06-10 Completed University of 00:00:00 [place] [facility] Remdesivir 2022-06-10 Completed University of 00:00:00 [place] [facility] Remdesivir 2022-06-10 Completed University of 00:00:00 [place] [facility] Remdesivir 2022-06-10 Completed University of 00:00:00 [place] [facility] Remdesivir 2022-06-10 Completed University of 00:00:00 [place] [facility] Remdesivir 2022-06-10 Completed University of 00:00:00 [place] [facility] Remdesivir 2022-06-10 Completed University of 00:00:00 [place] [facility] Remdesivir 2022-06-10 Completed University of 00:00:00 [place] [facility] Remdesivir 2022-06-10 Completed University of 00:00:00 [place] [facility] Remdesivir 2022-06-10 Completed University of 00:00:00 [place] [facility] Remdesivir 2022-06-10 Completed University of 00:00:00 [place] [facility] Remdesivir 2022-06-10 Completed University of 00:00:00 [place] [facility] Remdesivir 2022-06-10 Completed University of 00:00:00 [place] [facility] Remdesivir 2022-06-10 Completed University of 00:00:00 [place] [facility] Remdesivir 2022-06-10 Completed University of 00:00:00 [place] [facility] Remdesivir 2022-06-10 Completed University of 00:00:00 [place] [facility] Remdesivir 2022-06-10 Completed University of 00:00:00 [place] [facility] Remdesivir 2022-06-10 Completed University of 00:00:00 [place] [facility] Remdesivir 2022-06-10 Completed University of 00:00:00 [place] [facility] Remdesivir 2022-06-10 Completed University of 00:00:00 [place] [facility] Remdesivir 2022-06-10 Completed University of 00:00:00 [place] [facility] Remdesivir 2022-06-10 Completed University of 00:00:00 [place] [facility] Remdesivir 2022-06-10 Completed University of 00:00:00 [place] [facility] Remdesivir 2022-06-10 Completed University of 00:00:00 [place] [facility] Remdesivir 2022-06-10 Completed University of 00:00:00 [place] [facility] Remdesivir 2022-06-10 Completed University of 00:00:00 [place] [facility] Remdesivir 2022-06-10 Completed University of 00:00:00 [place] [facility] Remdesivir 2022-06-10 Completed University of 00:00:00 [place] [facility] Remdesivir 2022-06-10 Completed University of 00:00:00 [place] [facility] Remdesivir 2022-06-10 Completed University of 00:00:00 [place] [facility] Remdesivir 2022-06-10 Completed University of 00:00:00 [place] [facility] Remdesivir 2022-06-10 Completed University of 00:00:00 [place] [facility] Remdesivir 2022-06-10 Completed University of 00:00:00 [place] [facility] Remdesivir 2022-06-10 Completed University of 00:00:00 [place] [facility] Remdesivir 2022-06-10 Completed University of 00:00:00 [place] [facility] Remdesivir 2022-06-09 Completed University of 00:00:00 [place] [facility] Remdesivir 2022-06-09 Completed University of 00:00:00 [place] [facility] Remdesivir 2022-06-09 Completed University of 00:00:00 [place] [facility] Remdesivir 2022-06-09 Completed University of 00:00:00 [place] [facility] Remdesivir 2022-06-09 Completed University of 00:00:00 [place] [facility] Remdesivir 2022-06-09 Completed University of 00:00:00 [place] [facility] Remdesivir 2022-06-09 Completed University of 00:00:00 [place] [facility] Remdesivir 2022-06-09 Completed University of 00:00:00 [place] [facility] Remdesivir 2022-06-09 Completed University of 00:00:00 [place] [facility] Remdesivir 2022-06-09 Completed University of 00:00:00 [place] [facility] Remdesivir 2022-06-09 Completed University of 00:00:00 [place] [facility] Remdesivir 2022-06-09 Completed University of 00:00:00 [place] [facility] Remdesivir 2022-06-09 Completed University of 00:00:00 [place] [facility] Remdesivir 2022-06-09 Completed University of 00:00:00 [place] [facility] Remdesivir 2022-06-09 Completed University of 00:00:00 [place] [facility] Remdesivir 2022-06-09 Completed University of 00:00:00 [place] [facility] Remdesivir 2022-06-09 Completed University of 00:00:00 [place] [facility] Remdesivir 2022-06-09 Completed University of 00:00:00 [place] [facility] Remdesivir 2022-06-09 Completed University of 00:00:00 [place] [facility] Remdesivir 2022-06-09 Completed University of 00:00:00 [place] [facility] Remdesivir 2022-06-09 Completed University of 00:00:00 [place] [facility] Remdesivir 2022-06-09 Completed University of 00:00:00 [place] [facility] Remdesivir 2022-06-09 Completed University of 00:00:00 [place] [facility] Remdesivir 2022-06-09 Completed University of 00:00:00 [place] [facility] Remdesivir 2022-06-09 Completed University of 00:00:00 [place] [facility] Remdesivir 2022-06-09 Completed University of 00:00:00 [place] [facility] Remdesivir 2022-06-09 Completed University of 00:00:00 [place] [facility] Remdesivir 2022-06-09 Completed University of 00:00:00 [place] [facility] Remdesivir 2022-06-09 Completed University of 00:00:00 [place] [facility] Remdesivir 2022-06-09 Completed University of 00:00:00 [place] [facility] Remdesivir 2022-06-09 Completed University of 00:00:00 [place] [facility] Remdesivir 2022-06-09 Completed University of 00:00:00 [place] [facility] Remdesivir 2022-06-09 Completed University of 00:00:00 [place] [facility] Remdesivir 2022-06-09 Completed University of 00:00:00 [place] [facility] Remdesivir 2022-06-09 Completed University of 00:00:00 [place] [facility] Remdesivir 2022-06-09 Completed University of 00:00:00 [place] [facility] Remdesivir 2022-06-09 Completed University of 00:00:00 [place] [facility] Remdesivir 2022-06-09 Completed University of 00:00:00 [place] [facility] Remdesivir 2022-06-09 Completed University of 00:00:00 [place] [facility] Remdesivir 2022-06-09 Completed University of 00:00:00 [place] [facility] Remdesivir 2022-06-09 Completed University of 00:00:00 [place] [facility] Remdesivir 2022-06-09 Completed University of 00:00:00 [place] [facility] Remdesivir 2022-06-09 Completed University of 00:00:00 [place] [facility] Remdesivir 2022-06-09 Completed University of 00:00:00 [place] [facility] Remdesivir 2022-06-09 Completed University of 00:00:00 [place] [facility] Remdesivir 2022-06-09 Completed University of 00:00:00 [place] [facility] Remdesivir 2022-06-09 Completed University of 00:00:00 [place] [facility] Remdesivir 2022-06-09 Completed University of 00:00:00 [place] [facility] Remdesivir 2022-06-09 Completed University of 00:00:00 [place] [facility] Remdesivir 2022-06-09 Completed University of 00:00:00 [place] [facility] Remdesivir 2022-06-08 Completed University of 00:00:00 [place] [facility] Remdesivir 2022-06-08 Completed University of 00:00:00 [place] [facility] Remdesivir 2022-06-08 Completed University of 00:00:00 [place] [facility] Remdesivir 2022-06-08 Completed University of 00:00:00 [place] [facility] Remdesivir 2022-06-08 Completed University of 00:00:00 [place] [facility] Remdesivir 2022-06-08 Completed University of 00:00:00 [place] [facility] Remdesivir 2022-06-08 Completed University of 00:00:00 [place] [facility] Remdesivir 2022-06-08 Completed University of 00:00:00 [place] [facility] Remdesivir 2022-06-08 Completed University of 00:00:00 [place] [facility] Remdesivir 2022-06-08 Completed University of 00:00:00 [place] [facility] Remdesivir 2022-06-08 Completed University of 00:00:00 [place] [facility] Remdesivir 2022-06-08 Completed University of 00:00:00 [place] [facility] Remdesivir 2022-06-08 Completed University of 00:00:00 [place] [facility] Remdesivir 2022-06-08 Completed University of 00:00:00 [place] [facility] Remdesivir 2022-06-08 Completed University of 00:00:00 [place] [facility] Remdesivir 2022-06-08 Completed University of 00:00:00 [place] [facility] Remdesivir 2022-06-08 Completed University of 00:00:00 [place] [facility] Remdesivir 2022-06-08 Completed University of 00:00:00 [place] [facility] Remdesivir 2022-06-08 Completed University of 00:00:00 [place] [facility] Remdesivir 2022-06-08 Completed University of 00:00:00 [place] [facility] Remdesivir 2022-06-08 Completed University of 00:00:00 [place] [facility] Remdesivir 2022-06-08 Completed University of 00:00:00 [place] [facility] Remdesivir 2022-06-08 Completed University of 00:00:00 [place] [facility] Remdesivir 2022-06-08 Completed University of 00:00:00 [place] [facility] Remdesivir 2022-06-08 Completed University of 00:00:00 [place] [facility] Remdesivir 2022-06-08 Completed University of 00:00:00 [place] [facility] Remdesivir 2022-06-08 Completed University of 00:00:00 [place] [facility] Remdesivir 2022-06-08 Completed University of 00:00:00 [place] [facility] Remdesivir 2022-06-08 Completed University of 00:00:00 [place] [facility] Remdesivir 2022-06-08 Completed University of 00:00:00 [place] [facility] Remdesivir 2022-06-08 Completed University of 00:00:00 [place] [facility] Remdesivir 2022-06-08 Completed University of 00:00:00 [place] [facility] Remdesivir 2022-06-08 Completed University of 00:00:00 [place] [facility] Remdesivir 2022-06-08 Completed University of 00:00:00 [place] [facility] Remdesivir 2022-06-08 Completed University of 00:00:00 [place] [facility] Remdesivir 2022-06-08 Completed University of 00:00:00 [place] [facility] Remdesivir 2022-06-08 Completed University of 00:00:00 [place] [facility] Remdesivir 2022-06-08 Completed University of 00:00:00 [place] [facility] Remdesivir 2022-06-08 Completed University of 00:00:00 [place] [facility] Remdesivir 2022-06-08 Completed University of 00:00:00 [place] [facility] Remdesivir 2022-06-08 Completed University of 00:00:00 [place] [facility] Remdesivir 2022-06-08 Completed University of 00:00:00 [place] [facility] Remdesivir 2022-06-08 Completed University of 00:00:00 [place] [facility] Remdesivir 2022-06-08 Completed University of 00:00:00 [place] [facility] Remdesivir 2022-06-08 Completed University of 00:00:00 [place] [facility] Remdesivir 2022-06-08 Completed University of 00:00:00 [place] [facility] Remdesivir 2022-06-08 Completed University of 00:00:00 [place] [facility] Remdesivir 2022-06-08 Completed University of 00:00:00 [place] [facility] Remdesivir 2022-06-08 Completed University of 00:00:00 [place] [facility] Remdesivir 2022-06-08 Completed University of 00:00:00 [place] [facility] Remdesivir 2022-06-07 Completed University of 00:00:00 [place] [facility] Remdesivir 2022-06-07 Completed University of 00:00:00 [place] [facility] Remdesivir 2022-06-07 Completed University of 00:00:00 [place] [facility] Remdesivir 2022-06-07 Completed [facility] of 00:00:00 [place] [facility] Remdesivir 2022-06-07 Completed University of 00:00:00 [place] [facility] Remdesivir 2022-06-07 Completed University of 00:00:00 [place] [facility] Remdesivir 2022-06-07 Completed University of 00:00:00 [place] [facility] Remdesivir 2022-06-07 Completed University of 00:00:00 [place] [facility] Remdesivir 2022-06-07 Completed University of 00:00:00 [place] [facility] Remdesivir 2022-06-07 Completed University of 00:00:00 [place] [facility] Remdesivir 2022-06-07 Completed University of 00:00:00 [place] [facility] Remdesivir 2022-06-07 Completed University of 00:00:00 [place] [facility] Remdesivir 2022-06-07 Completed University of 00:00:00 [place] [facility] Remdesivir 2022-06-07 Completed University of 00:00:00 [place] [facility] Remdesivir 2022-06-07 Completed University of 00:00:00 [place] [facility] Remdesivir 2022-06-07 Completed University of 00:00:00 [place] [facility] Remdesivir 2022-06-07 Completed University of 00:00:00 [place] [facility] Remdesivir 2022-06-07 Completed University of 00:00:00 [place] [facility] Remdesivir 2022-06-07 Completed University of 00:00:00 [place] [facility] Remdesivir 2022-06-07 Completed University of 00:00:00 [place] [facility] Remdesivir 2022-06-07 Completed University of 00:00:00 [place] [facility] Remdesivir 2022-06-07 Completed University of 00:00:00 [place] [facility] Remdesivir 2022-06-07 Completed University of 00:00:00 [place] [facility] Remdesivir 2022-06-07 Completed University of 00:00:00 [place] [facility] Remdesivir 2022-06-07 Completed University of 00:00:00 [place] [facility] Remdesivir 2022-06-07 Completed University of 00:00:00 [place] [facility] Remdesivir 2022-06-07 Completed University of 00:00:00 [place] [facility] Remdesivir 2022-06-07 Completed University of 00:00:00 [place] [facility] Remdesivir 2022-06-07 Completed [facility] of 00:00:00 [place] [facility] Remdesivir 2022-06-07 Completed University of 00:00:00 [place] [facility] Remdesivir 2022-06-07 Completed University of 00:00:00 [place] [facility] Remdesivir 2022-06-07 Completed [facility] of 00:00:00 [place] [facility] Remdesivir 2022-06-07 Completed University of 00:00:00 [place] [facility] Remdesivir 2022-06-07 Completed University of 00:00:00 [place] [facility] Remdesivir 2022-06-07 Completed University of 00:00:00 [place] [facility] Remdesivir 2022-06-07 Completed University of 00:00:00 [place] [facility] Remdesivir 2022-06-07 Completed [facility] of 00:00:00 [place] [facility] Remdesivir 2022-06-07 Completed [facility] of 00:00:00 [place] [facility] Remdesivir 2022-06-07 Completed University of 00:00:00 [place] [facility] Remdesivir 2022-06-07 Completed University of 00:00:00 [place] [facility] Remdesivir 2022-06-07 Completed University of 00:00:00 [place] [facility] Remdesivir 2022-06-07 Completed University of 00:00:00 [place] [facility] Remdesivir 2022-06-07 Completed University of 00:00:00 [place] [facility] Remdesivir 2022-06-07 Completed [facility] of 00:00:00 [place] [facility] Remdesivir 2022-06-07 Completed [facility] 00:00:00 [facility] Remdesivir 2022-06-07 Completed [facility] 00:00:00 [facility] Remdesivir 2022-06-07 Completed [facility] 00:00:00 [facility] Remdesivir 2022-06-07 Completed [facility] 00:00:00 [facility] Remdesivir 2022-06-07 Completed [facility] 00:00:00 [facility] Remdesivir 2022-06-07 Completed [facility] 00:00:00 [facility] Pneumococcal 20 2021-11-26 Completed Universit y of Conjugate, PCV20 00:00:00 [facility]ical (Prevnar 20) Branch Pneumococcal 20 2021-11-26 Completed [facility]it y of Conjugate, PCV20 00:00:00 [facility]ical (Prevnar 20) Branch Pneumococcal 20 2021-11-26 Completed [facility]it y of Conjugate, PCV20 00:00:00 [facility]ical (Prevnar 20) Branch Pneumococcal 20 2021-11-26 Completed [facility]it y of Conjugate, PCV20 00:00:00 [facility]ical (Prevnar 20) Branch Pneumococcal 20 2021-11-26 Completed [facility]it y of Conjugate, PCV20 00:00:00 [facility] (Prevnar 20) Branch Pneumococcal 20 2021-11-26 Completed [facility]it y of Conjugate, PCV20 00:00:00 [facility]ical (Prevnar 20) Branch Pneumococcal 20 2021-11-26 Completed [facility]it y of Conjugate, PCV20 00:00:00 [facility]ical (Prevnar 20) Branch Pneumococcal 20 2021-11-26 [...] [facility]it y of Conjugate, PCV20 00:[facility]:00 [place] [facility] (Pre[facility]ar 20) [facility] Pneumococcal 20 2021-11-26 Completed [facility]it y of Conjugate, PCV20 00:00:00 [place] [facility] (Prevnar 20) [facility] Pneumococcal 20 2021-11-26 Completed [facility] of Conjugate, PCV20 00:00:00 [place] [facility] (Prevnar 20) Branch Pneumococcal 20 2021-11-26 Completed [facility] of Conjugate, PCV20 00:00:00 [facility] (Prevnar 20) [facility] Pneumococcal 20 2021-11-26 Completed [facility] Conjugate, PCV20 00:00:00 [facility] (Pre[facility]ar 20) [facility] Pneumococcal 20 2021-11-26 Completed [facility] of Conjugate, PCV20 00:00:00 [place] [facility] (Prevnar 20) [facility] Pneumococcal 20 2021-11-26 Completed [facility] of Conjugate, PCV20 00:00:00 [facility] (Prevnar 20) [facility] Pneumococcal 20 2021-11-26 Completed [facility] of Conjugate, PCV20 00:00:00 [place] [facility] (Prevnar 20) [facility] Pneumococcal 20 2021-11-26 Completed [facility] of Conjugate, PCV20 00:00:00 [facility] (Prevnar 20) [facility] Pneumococcal 20 2021-11-26 Completed [facility] of Conjugate, PCV20 00:00:00 [place] [facility] (Prevnar 20) Branch Pneumococcal 20 2021-11-26 [...] [facility] of Conjugate, PCV20 00:00:00 [place] [facility] (Prevnar 20) Branch Pneumococcal 20 2021-11-26 Completed [facility] of Conjugate, PCV20 00:00:00 [place] [facility] (Prevnar 20) Branch Pneumococcal 20 2021-11-26 Completed [facility] of Conjugate, PCV20 00:00:00 [place] [facility] (Prevnar 20) [facility] Pneumococcal 20 2021-11-26 Completed [facility] Conjugate, PCV20 00:00:00 [place] [facility] (Prevnar 20) [facility] Pneumococcal 20 2021-11-26 Completed [facility] of Conjugate, PCV20 00:00:00 [facility] (Prevnar 20) Branch Pneumococcal 20 2021-11-26 Completed [facility]it [facility] of Conjugate, PCV20 00:00:00 [place] [facility] (Prevnar 20) Branch Pneumococcal 20 2021-11-26 Completed [facility] of Conjugate, PCV20 00:00:00 [place] [facility] (Prevnar 20) [facility] Pneumococcal 20 2021-11-26 Completed [facility] of Conjugate, PCV20 00:00:00 [facility] (Prevnar 20) [facility] Pneumococcal 20 2021-11-26 Completed [facility] of Conjugate, PCV20 00:00:00 [place] [facility] (Prevnar 20) Branch Pneumococcal 20 2021-11-26 Completed [facility] of Conjugate, PCV20 00:00:00 [place] [facility] (Prevnar 20) Branch Pneumococcal 20 2021-11-26 [...] [facility] of Conjugate, PCV20 00:00:00 [place] [facility] (Prevnar 20) Branch Pneumococcal 20 2021-11-26 Completed [facility] of Conjugate, PCV20 00:00:00 [place] [facility] (Prevnar 20) Branch Pneumococcal 20 2021-11-26 Completed [facility] of Conjugate, PCV20 00:00:00 [place] [facility] (Prevnar 20) [facility] Pneumococcal 20 2021-11-26 Completed [facility] of Conjugate, PCV20 00:00:00 [place] [facility] (Prevnar 20) Branch Pneumococcal 20 [...] [facility] y of Conjugate, PCV20 00:00:00 [place] [facility] (Prevnar 20) Branch Pneumococcal 20 2021-11-26 Completed [facility] of Conjugate, PCV20 00:00:00 [place] [facility] (Prevnar 20) Branch Pneumococcal 20 2021-11-26 Completed [facility] of Conjugate, PCV20 00:00:00 [place] [facility] (Prevnar 20) Branch Pneumococcal 20 2021-11-26 Completed [facility] of Conjugate, PCV20 00:00:00 [facility] dical (Prevnar 20) Branch Pneumococcal 20 2021-11-26 Completed [facility]it y of Conjugate, PCV20 00:00:00 [facility] dical (Prevnar 20) Branch Pneumococcal 20 2021-11-26 Completed [facility]it y of Conjugate, PCV20 00:00:00 [facility] dical (Prevnar 20) Branch Pneumococcal 20 2021-11-26 Completed [facility]it y of Conjugate, PCV20 00:00:00 [facility] dical (Prevnar 20) Branch Pneumococcal 20 2021-11-26 Completed [facility]it y of Conjugate, PCV20 00:00:00 [facility] dical (Prevnar 20) Branch Pneumococcal 20 2021-11-26 Completed [facility]it y of Conjugate, PCV20 00:00:00 [facility] dical (Prevnar 20) Branch Pneumococcal 20 2021-11-26 Completed [facility]it y of Conjugate, PCV20 00:00:00 [facility] dical (Prevnar 20) Branch Pneumococcal 20 2021-11-26 Completed [facility]it y of Conjugate, PCV20 00:00:00 [facility] dical (Prevnar 20) Branch Pneumococcal 20 2021-11-26 Completed [facility]it y of Conjugate, PCV20 00:00:00 [facility] (Prevnar 20) Branch Pneumococcal 20 2021-11-26 Completed [facility]it y of Conjugate, PCV20 00:00:00 [facility] d[facility] (Prevnar 20) Branch Pneumococcal 20 2021-11-26 Completed [facility] y of Conjugate, PCV20 00:00:00 [facility] dical (Prevnar 20) Branch Pneumococcal 20 2021-11-26 Completed [facility] y of Conjugate, PCV20 00:00:00 [facility] dical (Prevnar 20) Branch Pneumococcal 20 2021-11-26 Completed [facility]it y of Conjugate, PCV20 00:00:00 [facility] dical (Prevnar 20) Branch Pneumococcal 20 2021-11-26 Completed [facility]it y of Conjugate, PCV20 00:00:00 [facility] dical (Prevnar 20) Branch Pneumococcal 20 2021-11-26 [...] [facility]it y of Conjugate, PCV20 00:00:00 [place] [facility] (Prevnar 20) [facility] Pneumococcal 20 2021-11-26 Completed [facility] y of Conjugate, PCV20 00:00:00 [place] [facility] (Prevnar 20) Branch Pneumococcal 20 2021-11-26 Completed [facility] y of Conjugate, PCV20 00:00:00 [place] [facility] (Prevnar 20) Branch Pneumococcal 20 2021-11-26 Completed [facility] of Conjugate, PCV20 00:00:00 [place] [facility] (Prevnar 20) [facility] Pneumococcal 20 2021-11-26 Completed [facility] y of Conjugate, PCV20 00:00:00 [place] [facility] (Prevnar 20) Branch Pneumococcal 20 [...] [facility]it y of Conjugate, PCV20 00:00:00 [place] [facility] (Prevnar 20) Branch Pneumococcal 20 2021-11-26 Completed [facility] of Conjugate, PCV20 00:00:00 [place] [facility] (Prevnar 20) Branch Pneumococcal 20 2021-11-26 [...] [facility] y of Conjugate, PCV20 00:00:00 [place] [facility] (Prevnar 20) Branch Pneumococcal 20 2021-11-26 Completed [facility] of Conjugate, PCV20 00:00:00 [place] [facility] (Prevnar 20) [facility] Pneumococcal 20 2021-11-26 Completed [facility] y of Conjugate, PCV20 00:00:00 [facility] (Prevnar 20) [facility] Pneumococcal 20 2021-11-26 Completed [facility] of Conjugate, PCV20 00:00:00 [facility] (Prevnar 20) Branch Pneumococcal 20 2021-11-26 Completed [facility] of Conjugate, PCV20 00:00:00 [facility] (Prevnar 20) Branch Pneumococcal 20 2021-11-26 Completed [facility] y of Conjugate, PCV20 00:00:00 [place] [facility] (Prevnar 20) Branch Pneumococcal 20 2021-11-26 Completed [facility] y of Conjugate, PCV20 00:00:00 [place] [facility] (Prevnar 20) Branch Pneumococcal 20 2021-11-26 Completed [facility] y of Conjugate, PCV20 00:00:00 [place] [facility] (Prevnar 20) Branch Pneumococcal 20 2021-11-26 Completed [facility]it y of Conjugate, PCV20 00:00:00 [facility] dical (Prevnar 20) Branch Pneumococcal 20 2021-11-26 Completed Universit y of Conjugate, PCV20 00:00:00 [facility] dical (Prevnar 20) Branch Pneumococcal 20 2021-11-26 Completed Universit y of Conjugate, PCV20 00:00:00 [facility] dical (Prevnar 20) Branch Influenza Virus 2021-04-02 [...] rsity of MODERNA 0.25ML 00:00:00 [facility]ER VACCINE [facility] SARS-COV-2 COVID-19 2021-03-26 Completed [...] YRS 00:00:00 [facility] VACCINE [facility] Pneumococcal 2020-01-20 Completed [facility] o f Polysaccharide, 00:00:00 [facility] PPSV23 (PNEUMOVAX) Branch Flu Trivalent 2020-01-20 Completed [facility] 00:00:00 [facility] Pneumococcal 2020-01-20 Completed [facility] o f Polysaccharide, 00:00:00 [facility] PPSV23 (PNEUMOVAX) Branch Flu Trivalent 2020-01-20 Completed [facility] of 00:00:00 [facility] Pneumococcal 2020-01-20 Completed [facility] o f Polysaccharide, 00:00:00 [facility] PPSV23 (PNEUMOVAX) Branch Flu Trivalent 2020-01-20 Completed [facility] of 00:00:00 [facility] Pneumococcal 2020-01-20 Completed [facility] o f Polysaccharide, 00:00:00 [facility] PPSV23 (PNEUMOVAX) Branch Flu Trivalent 2020-01-20 Completed [facility] 00:00:00 [facility] Pneumococcal 2020-01-20 Completed [facility] o f Polysaccharide, 00:00:00 [facility] PPSV23 (PNEUMOVAX) Branch Flu Trivalent 2020-01-20 Completed [facility] 00:00:00 [facility] Pneumococcal 2020-01-20 Completed [facility] o f Polysaccharide, 00:00:00 [facility] PPSV23 (PNEUMOVAX) Branch Flu Trivalent 2020-01-20 Completed [facility] 00:00:00 [facility] Pneumococcal 2020-01-20 Completed [facility] o f Polysaccharide, 00:00:00 [facility] PPSV23 (PNEUMOVAX) Branch Flu Trivalent 2020-01-20 Completed [facility] 00:00:00 [facility] Pneumococcal 2020-01-20 Completed [facility] o f Polysaccharide, 00:00:00 [facility] PPSV23 (PNEUMOVAX) Branch Flu Trivalent 2020-01-20 Completed [facility] of 00:00:00 [facility] Influenza High Dose 2020-01-17 Completed Unive rsity of Quad 00:00:00 [facility] Influenza High Dose 2020-01-17 Completed Unive rsity of Quad 00:00:00 [facility] Influenza High Dose 2020-01-17 Completed Unive rsity of Quad 00:00:00 [facility] Influenza High Dose 2020-01-17 Completed Unive rsity of Quad 00:00:00 [facility] Influenza High Dose 2020-01-17 Completed Unive rsity of Quad 00:00:00 [facility] Influenza High Dose 2020-01-17 Completed Unive rsity of Quad 00:00:00 [facility] Influenza High Dose 2020-01-17 Completed Unive rsity of Quad 00:00:00 [facility] Influenza High Dose 2020-01-17 Completed Unive rsity of Quad 00:00:00 [facility] Influenza High Dose 2020-01-17 Completed Unive rsity of Quad 00:00:00 [facility] Influenza High Dose 2020-01-17 Completed Unive rsity of Quad 00:00:00 [facility] Influenza High Dose 2020-01-17 Completed Unive rsity of Quad 00:00:00 [facility] Influenza High Dose 2020-01-17 Completed Unive rsity of Quad 00:00:00 [facility] Influenza High Dose 2020-01-17 Completed Unive rsity of Quad 00:00:00 [facility] Influenza High Dose 2020-01-17 Completed Unive rsity of Quad 00:00:00 [facility] Influenza High Dose 2020-01-17 Completed Unive rsity of Quad 00:00:00 [facility] Influenza High Dose 2020-01-17 Completed Unive rsity of Quad 00:00:00 [facility] Influenza High Dose 2020-01-17 Completed Unive rsity of Quad 00:00:00 [facility] Influenza High Dose 2020-01-17 Completed Unive rsity of Quad 00:00:00 [facility] Influenza High Dose 2020-01-17 Completed Unive rsity of Quad 00:00:00 [facility] Influenza High Dose 2020-01-17 Completed Unive rsity of Quad 00:00:00 [facility] Influenza High Dose 2020-01-17 Completed Unive rsity of Quad 00:00:00 [facility] Influenza High Dose 2020-01-17 Completed Unive rsity of Quad 00:00:00 [facility] Influenza High Dose 2020-01-17 Completed Unive rsity of Quad 00:00:00 [facility] Influenza High Dose 2020-01-17 Completed Unive rsity of Quad 00:00:00 [facility] Influenza High Dose 2020-01-17 Completed Unive rsity of Quad 00:00:00 [facility] Influenza High Dose 2020-01-17 Completed Unive rsity of Quad 00:00:00 [facility] Influenza High Dose 2020-01-17 Completed Unive rsity of Quad 00:00:00 [facility] Influenza High Dose 2020-01-17 Completed Unive rsity of Quad 00:00:00 [facility] Influenza High Dose 2020-01-17 Completed Unive rsity of [facility] 00:00:00 [facility] Influenza High Dose 2020-01-17 Completed Unive rsity of [facility] 00:00:00 [facility] Influenza High Dose 2020-01-17 Completed Unive rsity of [facility] 00:00:00 [facility] Influenza High Dose 2020-01-17 Completed Unive rsity of [facility] 00:00:00 [facility] Influenza High Dose 2020-01-17 Completed Unive rsity of [facility] 00:00:00 [facility] Influenza High Dose 2020-01-17 Completed Unive rsity of [facility] 00:00:00 [facility] Influenza High Dose 2020-01-17 Completed Unive rsity of [facility] 00:00:00 [facility] Influenza High Dose 2020-01-17 Completed Unive rsity of [facility] 00:00:00 [facility] Influenza High Dose 2020-01-17 Completed Unive rsity of [facility] 00:00:00 [facility] Influenza High Dose 2020-01-17 Completed Unive rsity of [facility] 00:00:00 [facility] Influenza High Dose 2020-01-17 Completed Unive rsity of [facility] 00:00:00 [facility] Influenza High Dose 2020-01-17 Completed Unive rsity of [facility] 00:00:00 [facility] Influenza High Dose 2020-01-17 Completed Unive rsity of [facility] 00:00:00 [facility] Influenza High Dose 2020-01-17 Completed Unive rsity of [facility] 00:00:00 [facility] Influenza High Dose 2020-01-17 Completed Unive rsity of [facility] 00:00:00 [facility] Influenza High Dose 2020-01-17 Completed Unive rsity of [facility] 00:00:00 [facility] Influenza High Dose 2020-01-17 Completed Unive rsity of [facility] 00:00:00 [facility] Influenza High Dose 2020-01-17 Completed Unive rsity of [facility] 00:00:00 [facility] Influenza High Dose 2020-01-17 Completed Unive rsity of [facility] 00:00:00 [facility] Influenza High Dose 2020-01-17 Completed [facility]ive rsity of [facility] 00:00:00 [facility] Influenza High Dose 2020-01-17 Completed Unive rsity of [facility] 00:00:00 [facility] Influenza High Dose 2020-01-17 Completed Unive rs[facility] of [facility] 00:00:00 [facility] Influenza High Dose 2020-01-17 Completed [facility]ive rs[facility] of [facility] 00:00:00 [facility] Influenza High Dose 2020-01-17 Completed Unive rsity of [facility] 00:00:00 [facility] Influenza High Dose 2020-01-17 Completed Unive rsity of [facility] 00:00:00 [facility] Influenza High Dose 2020-01-17 Completed Unive rsity of [facility] 00:00:00 [facility] Influenza High Dose 2020-01-17 Completed Unive rs[facility] of [facility] 00:00:00 [facility] Influenza High Dose 2020-01-17 Completed Unive rs[facility] of [facility] 00:00:00 [facility] Influenza High Dose 2020-01-17 Completed Unive rs[facility] of [facility] 00:00:00 [facility] Influenza High Dose 2020-01-17 Completed Unive rs[facility] of [facility] 00:00:00 [facility] Influenza High Dose 2020-01-17 Completed Unive rs[facility] of [facility] 00:00:00 [facility] Influenza High Dose 2020-01-17 Completed Unive [facility] of [facility] 00:00:00 [facility] Influenza High Dose 2020-01-17 Completed Unive rsity of Quad 00:00:00 [facility] Influenza High Dose 2020-01-17 Completed Unive rsity of [facility] 00:00:00 [facility] Influenza High Dose 2020-01-17 Completed Unive rsity of [facility] 00:00:00 [facility] Influenza High Dose 2020-01-17 Completed Unive rs[facility] of [facility] 00:00:00 [facility] Influenza High Dose 2020-01-17 Completed Unive rs[facility] of [facility] 00:00:00 [facility] Influenza High Dose 2020-01-17 Completed Unive rs[facility] of [facility] 00:00:00 [facility] Influenza High Dose 2020-01-17 Completed [facility]ive [facility] of [facility] 00:00:00 [facility] Influenza High Dose 2020-01-17 Completed Unive [facility] of [facility] 00:00:00 [facility] Influenza High Dose 2020-01-17 Completed [facility]ive [facility] of [facility] 00:00:00 [facility] Influenza High Dose 2020-01-17 Completed Unive [facility] of [facility] 00:00:00 [facility] Influenza High Dose 2020-01-17 Completed Unive [facility] of [facility] 00:00:00 [facility] Influenza High Dose 2020-01-17 Completed Unive rs[facility] of [facility] 00:00:00 [facility] Influenza High Dose 2020-01-17 Completed [facility] of [facility] 00:00:00 [facility] Influenza High Dose 2020-01-17 Completed Unive [facility] of [facility] 00:00:00 [facility] Influenza High Dose 2020-01-17 Completed [facility]ive [facility] of [facility] 00:00:00 [facility] Influenza High Dose 2020-01-17 Completed [facility] of [facility] 00:00:00 [facility] Influenza High Dose 2020-01-17 Completed Unive [facility] of [facility] 00:00:00 [facility] Influenza High Dose 2020-01-17 Completed Unive rs[facility] of [facility] 00:00:00 [facility] Influenza High Dose 2020-01-17 Completed [facility] of [facility] 00:00:00 [facility] Influenza High Dose 2020-01-17 Completed [facility]ive [facility] of [facility] 00:00:00 [facility] Influenza High Dose 2020-01-17 Completed [facility] of [facility] 00:00:00 [facility] Influenza High Dose 2020-01-17 Completed [facility] of [facility] 00:00:00 [facility] Influenza High Dose 2020-01-17 Completed [facility] of [facility] 00:00:00 [facility] Influenza High Dose 2020-01-17 Completed [facility] 00:00:00 [facility] Influenza High Dose 2020-01-17 Completed [facility] of [facility] 00:00:00 [facility] Influenza High Dose 2020-01-17 Completed [facility] of [facility] 00:00:00 [facility] Influenza High Dose 2020-01-17 Completed [facility] of [facility] 00:00:00 [facility] Influenza High Dose 2020-01-17 Completed [facility] of [facility] 00:00:00 [facility] Influenza High Dose 2020-01-17 Completed [facility] of [facility] 00:00:00 [facility] Influenza High Dose 2020-01-17 Completed [facility] of [facility] 00:00:00 [facility] Influenza High Dose 2020-01-17 Completed [facility] of [facility] 00:00:00 [facility] Influenza High Dose 2020-01-17 Completed [facility] of [facility] 00:00:00 [facility] Influenza High Dose 2020-01-17 Completed Unive [facility] of [facility] 00:00:00 [facility] Influenza High Dose 2020-01-17 Completed Unive [facility] of [facility] 00:00:00 [facility] Influenza High Dose 2020-01-17 Completed [facility] of [facility] 00:00:00 [facility] Influenza High Dose 2020-01-17 Completed [facility] of [facility] 00:00:00 [facility] Influenza High Dose 2020-01-17 Completed [facility] of [facility] 00:00:00 [facility] Influenza High Dose 2020-01-17 Completed [facility] of [facility] 00:00:00 [facility] Influenza High Dose 2020-01-17 Completed [facility] of [facility] 00:00:00 [facility] Influenza High Dose 2020-01-17 Completed [facility] 00:00:00 [facility] Influenza High Dose 2020-01-17 Completed [facility] 00:00:00 [facility] Influenza High Dose 2020-01-17 Completed [facility] of [facility] 00:00:00 [facility] Influenza High Dose 2020-01-17 Completed [facility] of [facility] 00:00:00 [facility] Influenza High Dose 2020-01-17 Completed [facility] of [facility] 00:00:00 [facility] Influenza High Dose 2020-01-17 Completed [facility] of [facility] 00:00:00 [facility] Influenza High Dose 2020-01-17 Completed [facility] of [facility] 00:00:00 [facility] Influenza High Dose 2020-01-17 Completed [facility] 00:00:00 [facility] Influenza High Dose 2020-01-17 Completed [facility] of [facility] 00:00:00 [facility] Influenza High Dose 2020-01-17 Completed [facility] of [facility] 00:00:00 [facility] Influenza High Dose 2020-01-17 Completed [facility] of [facility] 00:00:00 [facility] Influenza High Dose 2020-01-17 Completed [facility] 00:00:00 [facility] Influenza High Dose 2020-01-17 Completed [facility] 00:00:00 [facility] Influenza Virus 2019-02-12 Completed Universit [facility] .5 mL 00:00:00 [facility] Influenza Virus 2019-02-12 Completed [facility] .5 [facility] 00:00:00 [facility] Influenza Virus 2019-02-12 Completed [facility] .5 mL 00:00:00 [facility] Influenza Virus [...] [facility] .5 mL 00:00:00 [facility] Influenza Virus [...] [facility] .5 mL 00:00:00 [facility] Influenza Virus [...] [facility] .5 mL 00:00:00 [facility] Influenza Virus 2019-02-12 Completed [facility] .5 mL 00:00:00 [facility] Influenza Virus 2019-02-12 Completed [facility] .5 mL 00:00:00 [facility] Influenza Virus 2019-02-12 Completed [facility] .5 mL 00:00:00 [facility] Influenza Virus 2019-02-12 Completed [facility] .5 mL 00:00:00 [facility] Influenza Virus [...] [facility] .5 mL 00:00:00 [facility] Influenza Virus [...] [facility] Vacc[facility] .5 mL 00:00:00 [facility] Pneumococcal 2018-02-07 Completed [facility] o f Polysaccharide, 00:00:00 [facility] PPSV23 (PNEUMOVAX) [facility] Influenza Virus 2018-02-07 Completed [facility] .5 mL 00:00:00 [facility] Pneumococcal 2018-02-07 Completed [facility] Polysaccharide, 00:00:00 [facility] PPSV23 (PNEUMOVAX) [facility] Influenza Virus 2018-02-07 Completed [facility] .5 mL 00:00:00 [facility] Pneumococcal 2018-02-07 Completed [facility] Polysaccharide, 00:00:00 [facility] PPSV23 (PNEUMOVAX) [facility] Influenza Virus 2018-02-07 Completed [facility] .5 mL 00:00:00 [facility] Pneumococcal 2018-02-07 Completed [facility] Polysaccharide, 00:00:00 [facility] PPSV23 (PNEUMOVAX) [facility] Influenza Virus 2018-02-07 Completed [facility] .5 mL 00:00:00 [facility] Pneumococcal 2018-02-07 Completed [facility] Polysaccharide, 00:00:00 [facility] PPSV23 (PNEUMOVAX) [facility] Influenza Virus 2018-02-07 Completed [facility] .5 mL 00:00:00 [facility] Pneumococcal 2018-02-07 Completed [facility] f Polysaccharide, 00:00:00 [facility] PPSV23 (PNEUMOVAX) [facility] Influenza Virus 2018-02-07 Completed [facility] .5 mL 00:00:00 [facility] Pneumococcal 2018-02-07 Completed [facility] Polysaccharide, 00:00:00 [facility] PPSV23 (PNEUMOVAX) [facility] Influenza Virus 2018-02-07 Completed [facility] .5 mL 00:00:00 [facility] Pneumococcal 2018-02-07 Completed [facility] Polysaccharide, 00:00:00 [facility] PPSV23 (PNEUMOVAX) [facility] Influenza Virus 2018-02-07 Completed [facility] .5 mL 00:00:00 [facility] Pneumococcal 2018-02-07 Completed [facility] f Polysaccharide, 00:00:00 [facility] PPSV23 (PNEUMOVAX) [facility] Influenza Virus 2018-02-07 Completed [facility] .5 mL 00:00:00 [facility] Pneumococcal 2018-02-07 Completed [facility] f Polysaccharide, 00:00:00 [facility] PPSV23 (PNEUMOVAX) [facility] Influenza Virus 2018-02-07 Completed [facility] .5 mL 00:00:00 [facility] Pneumococcal 2018-02-07 Completed [facility] f Polysaccharide, 00:00:00 [facility] PPSV23 (PNEUMOVAX) [facility] Influenza Virus 2018-02-07 Completed [facility] .5 mL 00:00:00 [facility] Pneumococcal 2018-02-07 Completed [facility] f Polysaccharide, 00:00:00 [facility] PPSV23 (PNEUMOVAX) [facility] Influenza Virus 2018-02-07 Completed [facility] .5 mL 00:00:00 [facility] Pneumococcal 2018-02-07 Completed [facility] f Polysaccharide, 00:00:00 [facility] PPSV23 (PNEUMOVAX) [facility] Influenza Virus 2018-02-07 Completed [facility] .5 mL 00:00:00 [facility] Pneumococcal 2018-02-07 [...] y [facility] Vaccine [facility] .5 mL 00:00:00 [facility] Pneumococcal 2018-02-07 Completed [facility] Polysaccharide, 00:00:00 [facility] PPSV23 (PNEUMOVAX) [facility] Influenza Virus 2018-02-07 Completed [facility] .5 mL 00:00:00 [facility] Pneumococcal 2018-02-07 Completed [facility] Polysaccharide, 00:00:00 [facility] PPSV23 (PNEUMOVAX) [facility] Influenza Virus 2018-02-07 Completed [facility] .5 mL 00:00:00 [facility] Pneumococcal 2018-02-07 Completed [facility] f Polysaccharide, 00:00:00 [facility] PPSV23 (PNEUMOVAX) [facility] Influenza Virus 2018-02-07 Completed [facility] .5 mL 00:00:00 [facility] Pneumococcal 2018-02-07 Completed [facility] f Polysaccharide, 00:00:00 [facility] PPSV23 (PNEUMOVAX) [facility] Influenza Virus 2018-02-07 Completed [facility] .5 mL 00:00:00 [facility] Pneumococcal 2018-02-07 Completed [facility] f Polysaccharide, 00:00:00 [facility] PPSV23 (PNEUMOVAX) [facility] Influenza Virus 2018-02-07 Completed [facility] .5 mL 00:00:00 [facility] Pneumococcal 2018-02-07 Completed [facility] f Polysaccharide, 00:00:00 [facility] PPSV23 (PNEUMOVAX) [facility] Influenza Virus 2018-02-07 Completed [facility] .5 mL 00:00:00 [facility] Pneumococcal 2018-02-07 Completed [facility] f Polysaccharide, 00:00:00 [facility] PPSV23 (PNEUMOVAX) [facility] Influenza Virus 2018-02-07 Completed [facility] .5 mL 00:00:00 [facility] Pneumococcal 2018-02-07 Completed [facility] f Polysaccharide, 00:00:00 [facility] PPSV23 (PNEUMOVAX) [facility] Influenza Virus 2018-02-07 Completed [facility] .5 mL 00:00:00 [facility] Pneumococcal 2018-02-07 Completed [facility] f Polysaccharide, 00:00:00 [facility] PPSV23 (PNEUMOVAX) [facility] Influenza Virus 2018-02-07 Completed [facility] .5 mL 00:00:00 [facility] Pneumococcal 2018-02-07 Completed [facility] f Polysaccharide, 00:00:00 [facility] PPSV23 (PNEUMOVAX) [facility] Influenza Virus 2018-02-07 Completed [facility] .5 mL 00:00:00 [facility] Pneumococcal 2018-02-07 Completed [facility] f Polysaccharide, 00:00:00 [facility] PPSV23 (PNEUMOVAX) [facility] Influenza Virus 2018-02-07 Completed [facility] .5 mL 00:00:00 [facility] Pneumococcal 2018-02-07 Completed [facility] f Polysaccharide, 00:00:00 [facility] PPSV23 (PNEUMOVAX) [facility] Influenza Virus 2018-02-07 Completed [facility] .5 mL 00:00:00 [facility] Pneumococcal 2018-02-07 Completed [facility] f Polysaccharide, 00:00:00 [facility] PPSV23 (PNEUMOVAX) Branch Influenza Virus [...] y of Vaccine Quad .5 mL 00:00:00 [facility] Pneumococcal 2018-02-07 Completed [facility] f Polysaccharide, 00:00:00 [facility] PPSV23 (PNEUMOVAX) [facility] Influenza Virus 2018-02-07 Completed [facility] .5 mL 00:00:00 [facility] Pneumococcal 2018-02-07 Completed [facility] f Polysaccharide, 00:00:00 [facility] PPSV23 (PNEUMOVAX) [facility] Influenza Virus 2018-02-07 Completed [facility] .5 mL 00:00:00 [facility] Pneumococcal 2018-02-07 Completed [facility] f Polysaccharide, 00:00:00 [facility] PPSV23 (PNEUMOVAX) [facility] Influenza Virus 2018-02-07 Completed [facility] .5 mL 00:00:00 [facility] Pneumococcal 2018-02-07 Completed [facility] f Polysaccharide, 00:00:00 [facility] PPSV23 (PNEUMOVAX) [facility] Influenza Virus 2018-02-07 Completed [facility] .5 mL 00:00:00 [facility] Pneumococcal 2018-02-07 Completed [facility] f Polysaccharide, 00:00:00 [facility] PPSV23 (PNEUMOVAX) [facility] Influenza Virus 2018-02-07 Completed [facility] .5 mL 00:00:00 [facility] Pneumococcal 2018-02-07 Completed [facility] f Polysaccharide, 00:00:00 [facility] PPSV23 (PNEUMOVAX) [facility] Influenza Virus 2018-02-07 Completed [facility] .5 mL 00:00:00 [facility] Pneumococcal 2018-02-07 Completed [facility] f Polysaccharide, 00:00:00 [facility] PPSV23 (PNEUMOVAX) [facility] Influenza Virus 2018-02-07 Completed [facility] .5 mL 00:00:00 [facility] Pneumococcal 2018-02-07 [...] 2018-02-07 Completed [facility] f Polysaccharide, 00:00:00 [facility] PPSV23 (PNEUMOVAX) [facility] Influenza Virus 2018-02-07 Completed [facility] .5 mL 00:00:00 [facility] Pneumococcal 2018-02-07 Completed [facility] f Polysaccharide, 00:00:00 [facility] PPSV23 (PNEUMOVAX) Branch Influenza Virus [...] y of Vaccine Quad .5 mL 00:00:00 [facility] Pneumococcal 2018-02-07 Completed [facility] f Polysaccharide, 00:00:00 [facility] PPSV23 (PNEUMOVAX) [facility] Influenza Virus 2018-02-07 Completed [facility] Vacc[facility] .5 mL 00:00:00 [facility] Pneumococcal 2018-02-07 Completed [facility] f Polysaccharide, 00:00:00 [facility] PPSV23 (PNEUMOVAX) [facility] Influenza Virus 2018-02-07 Completed [facility] Vacc[facility] .5 mL 00:00:00 [facility] Pneumococcal 2018-02-07 Completed [facility] f Polysaccharide, 00:00:00 [facility] PPSV23 (PNEUMOVAX) [facility] Influenza Virus 2018-02-07 Completed [facility] Vacc[facility] .5 mL 00:00:00 [facility] Pneumococcal 2018-02-07 Completed [facility] f Polysaccharide, 00:00:00 [facility] PPSV23 (PNEUMOVAX) [facility] Influenza Virus 2018-02-07 Completed [facility] Vaccine [facility] .5 mL 00:00:00 [facility] Pneumococcal 2018-02-07 Completed [facility] f Polysaccharide, 00:00:00 [facility] PPSV23 (PNEUMOVAX) [facility] Influenza Virus 2018-02-07 Completed [facility] Vaccine [facility] .5 mL 00:00:00 [facility] Pneumococcal 2018-02-07 Completed [facility] f Polysaccharide, 00:00:00 [facility] PPSV23 (PNEUMOVAX) [facility] Influenza Virus 2018-02-07 Completed [facility] Vacc[facility] .5 mL 00:00:00 [facility] Pneumococcal 2018-02-07 Completed [facility] f Polysaccharide, 00:00:00 [facility] PPSV23 (PNEUMOVAX) [facility] Influenza Virus 2018-02-07 Completed [facility] Vaccine [facility] .5 mL 00:00:00 [facility] Pneumococcal 2018-02-07 Completed [facility] f Polysaccharide, 00:00:00 [facility] PPSV23 (PNEUMOVAX) [facility] Influenza Virus 2018-02-07 Completed [facility] Vaccine [facility] .5 mL 00:00:00 [facility] Pneumococcal 2018-02-07 [...] y of Vaccine Quad .5 mL 00:00:00 [facility] Pneumococcal 2018-02-07 Completed [facility] f Polysaccharide, 00:00:00 [facility] PPSV23 (PNEUMOVAX) [facility] Influenza Virus 2018-02-07 Completed [facility] .5 mL 00:00:00 [facility] Pneumococcal 2018-02-07 Completed [facility] f Polysaccharide, 00:00:00 [facility] PPSV23 (PNEUMOVAX) [facility] Influenza Virus 2018-02-07 Completed [facility] Vaccine [facility] .5 mL 00:00:00 [facility] Pneumococcal 2018-02-07 Completed [facility] f Polysaccharide, 00:00:00 [facility] PPSV23 (PNEUMOVAX) [facility] Influenza Virus 2018-02-07 Completed [facility] Vacc[facility] .5 mL 00:00:00 [facility] Pneumococcal 2018-02-07 Completed [facility] f Polysaccharide, 00:00:00 [facility] PPSV23 (PNEUMOVAX) [facility] Influenza Virus 2018-02-07 Completed [facility] Vaccine [facility] .5 mL 00:00:00 [facility] Pneumococcal 2018-02-07 Completed [facility] f Polysaccharide, 00:00:00 [facility] PPSV23 (PNEUMOVAX) [facility] Influenza Virus 2018-02-07 Completed [facility] Vaccine [facility] .5 mL 00:00:00 [facility] Pneumococcal 2018-02-07 Completed [facility] o f Polysaccharide, 00:00:00 [facility] PPSV23 (PNEUMOVAX) [facility] Influenza Virus 2018-02-07 Completed [facility] Vaccine [facility] .5 mL 00:00:00 [facility] Pneumococcal 2018-02-07 Completed [facility] o f Polysaccharide, 00:00:00 [facility] PPSV23 (PNEUMOVAX) [facility] Influenza Virus 2018-02-07 Completed [facility] Vaccine [facility] .5 mL 00:00:00 [facility] Pneumococcal 2018-02-07 [...] y of Vaccine Quad .5 mL 00:00:00 [facility] Pneumococcal 2018-02-07 Completed [facility] o f Polysaccharide, 00:00:00 [facility] PPSV23 (PNEUMOVAX) Branch Influenza Virus 2018-02-07 Completed [facility] Vaccine [facility] .5 mL 00:00:00 [facility] Pneumococcal 2018-02-07 Completed [facility] o f Polysaccharide, 00:00:00 [facility] PPSV23 (PNEUMOVAX) Branch Influenza Virus 2018-02-07 Completed [facility] Vaccine Quad .5 mL 00:00:00 [facility] Pneumococcal 2018-02-07 [...] y of Vaccine Quad .5 mL 00:00:00 [facility] Pneumococcal 2018-02-07 Completed [facility] o f Polysaccharide, 00:00:00 [facility] PPSV23 (PNEUMOVAX) Branch Influenza Virus 2018-02-07 Completed [facility] Vaccine [facility] .5 mL 00:00:00 [facility] Pneumococcal 2018-02-07 Completed [facility] o f Polysaccharide, 00:00:00 [facility] PPSV23 (PNEUMOVAX) Branch Influenza Virus 2018-02-07 Completed [facility] Vaccine [facility] .5 mL 00:00:00 [facility] Pneumococcal 2018-02-07 Completed [facility] o f Polysaccharide, 00:00:00 [facility] PPSV23 (PNEUMOVAX) Branch Influenza Virus 2018-02-07 Completed [facility] Vaccine Quad .5 mL 00:00:00 [facility] 6+ MO Branch Pneumococcal 2018-02-07 Completed [facility] o f Polysaccharide, 00:00:00 [facility] PPSV23 (PNEUMOVAX) Branch Influenza Virus 2018-02-07 Completed [facility] Vaccine Quad .5 mL 00:00:00 [facility] 6+ MO Branch TDAP 2015-04-14 Completed [facility] of 00:00:00 [facility] TDAP 2015-04-14 Completed [facility] 00:00:00 [facility] TDAP 2015-04-14 Completed [facility] 00:00:00 [facility] TDAP 2015-04-14 Completed [facility] 00:00:00 [facility] TDAP 2015-04-14 Completed [facility] 00:00:00 [facility] TDAP 2015-04-14 Completed [facility] 00:00:00 [facility] TDAP 2015-04-14 Completed [facility] 00:00:00 [facility] TDAP 2015-04-14 Completed [facility] 00:00:00 [facility] TDAP 2015-04-14 Completed [facility] 00:00:00 [facility] TDAP 2015-04-14 Completed [facility] 00:00:00 [facility] TDAP 2015-04-14 Completed [facility] 00:00:00 [facility] TDAP 2015-04-14 Completed [facility] 00:00:00 [facility] TDAP 2015-04-14 Completed [facility] 00:00:00 [facility] TDAP 2015-04-14 Completed [facility] 00:00:00 [facility] TDAP 2015-04-14 Completed [facility] 00:00:00 [facility] TDAP 2015-04-14 Completed [facility] 00:00:00 [facility] TDAP 2015-04-14 Completed [facility] 00:00:00 [facility] TDAP 2015-04-14 Completed [facility] 00:00:00 [facility] TDAP 2015-04-14 Completed [facility] 00:00:00 [facility] TDAP 2015-04-14 Completed [facility] 00:00:00 [facility] TDAP 2015-04-14 Completed [facility] 00:00:00 [facility] TDAP 2015-04-14 Completed [facility] 00:00:00 [facility] TDAP 2015-04-14 Completed [facility] 00:00:00 [facility] TDAP 2015-04-14 Completed [facility] 00:00:00 [facility] TDAP 2015-04-14 Completed [facility] 00:00:00 [facility] TDAP 2015-04-14 Completed [facility] 00:00:00 [facility] TDAP 2015-04-14 Completed [facility] 00:00:00 [facility] TDAP 2015-04-14 Completed [facility] 00:00:00 [facility] TDAP 2015-04-14 Completed [facility] 00:00:00 [facility] TDAP 2015-04-14 Completed [facility] 00:00:00 [facility] TDAP 2015-04-14 Completed [facility] 00:00:00 [facility] TDAP 2015-04-14 Completed [facility] 00:00:00 [facility] TDAP 2015-04-14 Completed [facility] 00:00:00 [facility] TDAP 2015-04-14 Completed [facility] 00:00:00 [facility] TDAP 2015-04-14 Completed [facility] 00:00:00 [facility] TDAP 2015-04-14 Completed [facility] 00:00:00 [facility] TDAP 2015-04-14 Completed [facility] 00:00:00 [facility] TDAP 2015-04-14 Completed [facility] 00:00:00 [facility] TDAP 2015-04-14 Completed [facility] 00[facility]00:00 [facility] TDAP 2015-04-14 Completed [facility] 00[facility]00:00 [facility] TDAP 2015-04-14 Completed [facility] 00:00:00 [facility] TDAP 2015-04-14 Completed [facility] 00:00:00 [facility] TDAP 2015-04-14 Completed [facility] 00:00:00 [facility] TDAP 2015-04-14 Completed [facility] 00:00:00 [facility] TDAP 2015-04-14 Completed [facility] 00:00:00 [facility] TDAP 2015-04-14 Completed [facility] 00:00:00 [facility] TDAP 2015-04-14 Completed [facility] 00:00:00 [facility] TDAP 2015-04-14 Completed [facility] 00:00:00 [facility] TDAP 2015-04-14 Completed [facility] 00:00:00 [facility] TDAP 2015-04-14 Completed [facility] 00:00:00 [facility] TDAP 2015-04-14 Completed [facility] 00:00:00 [facility] TDAP 2015-04-14 Completed [facility] 00:00:00 [facility] TDAP 2015-04-14 Completed [facility] 00:00:00 [facility] TDAP 2015-04-14 Completed [facility] 00:00:00 [facility] TDAP 2015-04-14 Completed [facility] 00:00:00 [facility] TDAP 2015-04-14 Completed [facility] 00:00:00 [facility] TDAP 2015-04-14 Completed [facility] 00:00:00 [facility] TDAP 2015-04-14 Completed [facility] 00:00:00 [facility] TDAP 2015-04-14 Completed [facility] 00[facility]00:00 [facility] TDAP 2015-04-14 Completed [facility] 00:00:00 [facility] TDAP 2015-04-14 Completed [facility] 00:00:00 [facility] TDAP 2015-04-14 Completed [facility] 00:00:00 [facility] TDAP 2015-04-14 Completed [facility] 00:00:00 [facility] TDAP 2015-04-14 Completed [facility] 00:00:00 [facility] TDAP 2015-04-14 Completed [facility] 00:00:00 [facility] TDAP 2015-04-14 Completed [facility] 00:00:00 [facility] TDAP 2015-04-14 Completed [facility] 00:00:00 [facility] TDAP 2015-04-14 Completed [facility] 00:00:00 [facility] TDAP 2015-04-14 Completed [facility] 00:00:00 [facility] TDAP 2015-04-14 Completed [facility] 00:00:00 [facility] TDAP 2015-04-14 Completed [facility] 00:00:00 [facility] TDAP 2015-04-14 Completed [facility] 00[facility]00:00 [facility] TDAP 2015-04-14 Completed [facility] 00:00:00 [facility] TDAP 2015-04-14 Completed [facility] 00:00:00 [facility] TDAP 2015-04-14 Completed [facility] 00:00:00 [facility] TDAP 2015-04-14 Completed [facility] 00:00:00 [facility] TDAP 2015-04-14 Completed [facility] 00:00:00 [facility] TDAP 2015-04-14 Completed [facility] 00:00:00 [facility] TDAP 2015-04-14 Completed [facility] 00:00:00 [facility] TDAP 2015-04-14 Completed [facility] 00:00:00 [facility] TDAP 2015-04-14 Completed [facility] 00:00:00 [facility] TDAP 2015-04-14 Completed [facility] 00:00:00 [facility] TDAP 2015-04-14 Completed [facility] 00:00:00 [facility] TDAP 2015-04-14 Completed [facility] 00:00:00 [facility] TDAP 2015-04-14 Completed [facility] 00:00:00 [facility] TDAP 2015-04-14 Completed [facility] 00:00:00 [facility] TDAP 2015-04-14 Completed [facility] 00:00:00 [facility] TDAP 2015-04-14 Completed [facility] 00:00:00 [facility] TDAP 2015-04-14 Completed [facility] 00:00:00 [facility] TDAP 2015-04-14 Completed [facility] 00[facility]00:00 [facility] TDAP 2015-04-14 Completed [facility] 00:00:00 [facility] TDAP 2015-04-14 Completed [facility] 00:00:00 [facility] TDAP 2015-04-14 Completed [facility] 00:00:00 [facility] TDAP 2015-04-14 Completed [facility] 00:00:00 [facility] TDAP 2015-04-14 Completed [facility] 00:00:00 [facility] TDAP 2015-04-14 Completed [facility] 00:00:00 [facility] TDAP 2015-04-14 Completed [facility] 00:00:00 [facility] TDAP 2015-04-14 Completed [facility] 00:00:00 [facility] TDAP 2015-04-14 Completed [facility] 00:00:00 [facility] TDAP 2015-04-14 Completed [facility] 00:00:00 [facility] TDAP 2015-04-14 Completed [facility] 00:00:00 [facility] TDAP 2015-04-14 Completed [facility] 00:00:00 [facility] TDAP 2015-04-14 Completed [facility] 00:00:00 [facility] TDAP 2015-04-14 Completed [facility] 00:00:00 [facility] TDAP 2015-04-14 Completed [facility] 00:00:00 [facility] TDAP 2015-04-14 Completed [facility] 00:00:00 [facility] TDAP 2015-04-14 Completed [facility] 00:00:00 [facility] TDAP 2015-04-14 Completed [facility] 00:00:00 [facility] TDAP 2015-04-14 Completed [facility] 00:00:00 [facility] TDAP 2015-04-14 Completed [facility] 00:00:00 [facility] TDAP 2015-04-14 Completed [facility] 00:00:00 [facility] TDAP 2015-04-14 Completed [facility] 00:00:00 [facility] Vital Signs Vital Name Observation Time Observation Value Comments Source Systolic blood 2022-11-02 122 mm[Hg] [place] of pressure 23:10:00 [facility] Diastolic blood 2022-11-02 78 mm[Hg] [place] o f pressure 23:10:00 [facility] Heart rate 2022-11-02 98 /min [facility] 23:10:00 [facility] Body temperature 2022-11-02 36.78 Jo [facility] 23:10:00 [facility] Respiratory rate 2022-11-02 16 /min [facility] 23:10:00 [facility] Body height 2022-11-02 170.2 cm [facility] 23:10:00 [facility] Body weight 2022-11-02 87.091 kg [facility] of 23:10:00 [facility] BMI 2022-11-02 30.07 kg/m2 [facility] 23:10:00 [facility] Oxygen saturation 2022-11-02 96 /min [facility] in Arterial blood 23:10:00 [facility] Pulse oximetry [place] Systolic blood 2022-10-18 100 mm[Hg] University of pressure 14:54:00 [facility] Diastolic blood 2022-10-18 63 mm[Hg] University o f pressure 14:54:00 [facility] Heart rate 2022-10-18 92 /min [facility] of 14:39:00 [facility] Body temperature 2022-10-18 36.28 Jo [facility] 14:39:00 [facility] Body height 2022-10-18 170.2 cm [facility] of 14:39:00 [facility] Body weight 2022-10-18 87.181 kg [facility] of 14:39:00 [facility] BMI 2022-10-18 30.10 kg/m2 [facility] 14:39:00 [facility] Oxygen saturation 2022-10-18 95 /min [facility] in Arterial blood 14:39:00 [place] [facility] Pulse oximetry Branch Systolic blood 2022-09-20 115 mm[Hg] [facility] pressure 20:23:00 [facility] Diastolic blood 2022-09-20 80 mm[Hg] [facility] o f pressure 20:23:00 [facility] Heart rate 2022-09-20 90 /min [facility] 20:23:00 [facility] Body height 2022-09-20 170.2 cm [facility] 20:23:00 [facility] Body weight 2022-09-20 86.32 kg [facility] of 20:23:00 [facility] BMI 2022-09-20 29.81 kg/m2 [facility] 20:23:00 [facility] Oxygen saturation 2022-09-20 93 /min [facility] in Arterial blood 20:23:00 [place] [facility] Pulse oximetry Branch Systolic blood 2022-08-21 123 mm[Hg] [facility] pressure 17:55:00 [facility] Diastolic blood 2022-08-21 87 mm[Hg] University o f pressure 17:55:00 [facility] Heart rate 2022-08-21 94 /min [facility] 17:55:00 [facility] Body temperature 2022-08-21 36.17 Jo [facility] 17:55:00 [facility] Respiratory rate 2022-08-21 20 /min [facility] 17:55:00 [facility] Body height 2022-08-21 170.2 cm [facility] 17:55:00 [facility] Body weight 2022-08-21 85.004 kg [facility] of 17:55:00 [facility] BMI 2022-08-21 29.35 kg/m2 [facility] 17:55:00 [facility] Oxygen saturation 2022-08-21 96 /min [facility] in Arterial blood 17:55:00 [place] [facility] Pulse oximetry Branch Systolic blood 2022-08-09 125 mm[Hg] [facility] pressure 15:10:00 [facility] Diastolic blood 2022-08-09 80 mm[Hg] University o f pressure 15:10:00 [facility] Heart rate 2022-08-09 92 /min [facility] of 15:10:00 [facility] Body height 2022-08-09 170.2 cm [facility] of 15:10:00 [facility] Body weight 2022-08-09 85.049 kg [facility] of 15:00 [facility] BMI 2022-08-09 29.37 kg/m2 [facility] of 15::00 [facility] Oxygen saturation 2022-08-09 95 /min [facility] in Arterial blood 15:10:00 [place] [facility] Pulse oximetry [facility] Systolic blood 2022-07-11 131 mm[Hg] [facility] pressure 19::00 [facility] Diastolic blood 2022-07-11 84 mm[Hg] University o f pressure 19:29:00 [facility] Heart rate 2022-07-11 96 /min [facility] 19::00 [facility] Body temperature 2022-07-11 37.67 Jo [facility] 19:29:00 [facility] Body height 2022-07-11 170.2 cm [facility] 19:29:00 [facility] Body weight 2022-07-11 85.276 kg [facility] of 19:29:00 [facility] BMI 2022-07-11 29.44 kg/m2 [facility] 19:29:00 [facility] Oxygen saturation 2022-07-11 95 /min [facility] in Arterial blood 19:29:00 [place] [facility] Pulse oximetry Branch Systolic blood 2022-06-27 142 mm[Hg] [facility] pressure 19:14:00 [facility] Diastolic blood 2022-06-27 87 mm[Hg] University o f pressure 19:14:00 [facility] Heart rate 2022-06-27 94 /min [facility] 19::00 [facility] Body temperature 2022-06-27 36.83 Jo [facility] 19:13:00 [facility] Respiratory rate 2022-06-27 16 /min [facility] 19:13:00 [facility] Body height 2022-06-27 170.2 cm [facility] 19:13:00 [facility] Body weight 2022-06-27 85.367 kg [facility] of 19:13:00 [facility] BMI 2022-06-27 29.48 kg/m2 [facility] 19:13:00 [facility] Oxygen saturation 2022-06-27 95 /min [facility] in Arterial blood 19:13:00 [place] [facility] Pulse oximetry Branch Systolic blood 2022-06-18 133 mm[Hg] [facility] pressure 17:11:00 [facility] Diastolic blood 2022-06-18 86 mm[Hg] University o f pressure 17:11:00 [facility] Heart rate 2022-06-18 88 /min [facility] 17:11:00 [facility] Body temperature 2022-06-18 36.11 Jo [facility] 17:11:00 [facility] Body height 2022-06-18 170.2 cm [facility] 17:11:00 [facility] Body weight 2022-06-18 84.823 kg [facility] of 17:11:00 [facility] BMI 2022-06-18 29.29 kg/m2 [facility] 17:11:00 [facility] Oxygen saturation 2022-06-18 93 /min [facility] in Arterial blood 17:11:00 [place] [facility] Pulse oximetry Branch Systolic blood 2022-06-13 124 mm[Hg] [facility] pressure 15:32:00 [facility] Diastolic blood 2022-06-13 81 mm[Hg] University o f pressure 15:32:00 [facility] Heart rate 2022-06-13 80 /min [facility] 15:32:00 [facility] Body height 2022-06-13 170.2 cm [facility] of 15:32:00 [facility] Body weight 2022-06-13 84.823 kg [facility] of 15:32:00 [facility] BMI 2022-06-13 29.29 kg/m2 [facility] of 15:32:00 [facility] Oxygen saturation 2022-06-13 94 /min [facility] in Arterial blood 15:32:00 [place] [facility] Pulse oximetry [facility] Systolic blood 2022-06-11 150 mm[Hg] [facility] pressure 18:19:00 [facility] Diastolic blood 2022-06-11 87 mm[Hg] University o f pressure 18:19:00 [facility] Body temperature 2022-06-11 36.78 Jo [facility] 18:19:00 [facility] Respiratory rate 2022-06-11 18 /min [facility] 18:19:00 [facility] Heart rate 2022-06-11 90 /min [facility] 15:03:00 [facility] Oxygen saturation 2022-06-11 95 /min [facility] in Arterial blood 15:03:00 [place] [facility] Pulse oximetry Branch Body weight 2022-06-11 87.499 kg [facility] of 09:42:00 [facility] BMI 2022-06-11 30.21 kg/m2 [facility] of 09:42:00 [facility] Body height 2022-06-06 170.2 cm [facility] of 16:57:00 [facility] Systolic blood 2022-06-01 144 mm[Hg] [facility] of pressure 19:22:00 [facility] Diastolic blood 2022-06-01 84 mm[Hg] University o f pressure 19:22:00 [facility] Heart rate 2022-06-01 101 /min [facility] 19:21:00 [facility] Body temperature 2022-06-01 36.72 Jo [facility] 19:21:00 [facility] Respiratory rate 2022-06-01 20 /min [facility] 19:21:00 [facility] Body height 2022-06-01 213.4 cm [facility] 19:21:00 [facility] Body weight 2022-06-01 86.183 kg [facility] of 19:21:00 [facility] BMI 2022-06-01 18.93 kg/m2 [facility] 19:21:00 [facility] Oxygen saturation 2022-06-01 95 /min [facility] in Arterial blood 19:21:00 [place] [facility] Pulse oximetry Branch Systolic blood 2022-03-29 116 mm[Hg] [facility] pressure 17:39:00 [facility] Diastolic blood 2022-03-29 77 mm[Hg] University o f pressure 17:39:00 [facility] Heart rate 2022-03-29 96 /min [facility] 17:39:00 [facility] Body temperature 2022-03-29 37.28 Jo [facility] 17:39:00 [facility] Body height 2022-03-29 170.2 cm [facility] of 17:39:00 [facility] Body weight 2022-03-29 85.276 kg [facility] of 17:39:00 [facility] BMI 2022-03-29 29.44 kg/m2 [facility] 17:39:00 [facility] Oxygen saturation 2022-03-29 93 /min [facility] in Arterial blood 17:39:00 [place] [facility] Pulse oximetry [facility] Oxygen saturation 2022-03-28 91 /min [facility] in Arterial blood 21:43:00 [place] [facility] Pulse oximetry [facility] Oxygen saturation 2022-03-28 95 /min [facility] in Arterial blood 21:02:00 [place] [facility] Pulse oximetry [facility] Systolic blood 2022-03-28 96 mm[Hg] [facility] pressure 21:01:00 [facility] Diastolic blood 2022-03-28 62 mm[Hg] University o f pressure 21:01:00 [facility] Heart rate 2022-03-28 98 /min [facility] 21:01:00 [facility] Body temperature 2022-03-28 36.39 Jo [facility] 21:01:00 [facility] Respiratory rate 2022-03-28 16 /min [facility] 21:01:00 [facility] Body weight 2022-03-28 87.091 kg [facility] of 21:01:00 [facility] BMI 2022-03-28 30.07 kg/m2 [facility] 21:01:00 [facility] Systolic blood 2022-03-11 119 mm[Hg] [facility] pressure 20:34:00 [facility] Diastolic blood 2022-03-11 78 mm[Hg] University o f pressure 20:34:00 [facility] Heart rate 2022-03-11 89 /min [facility] 20:34:00 [facility] Body temperature 2022-03-11 36.72 Jo [facility] 20:34:00 [facility] Respiratory rate 2022-03-11 17 /min [facility] 20:34:00 [facility] Body height 2022-03-11 170.2 cm [facility] 20:34:00 [facility] Body weight 2022-03-11 87.136 kg [facility] 20:34:00 [facility] BMI 2022-03-11 30.09 kg/m2 [facility] 20:34:00 [facility] Oxygen saturation 2022-03-11 90 /min [facility] in Arterial blood 20:34:00 [facility] P[facility] Systolic blood 2022-02-25 138 mm[Hg] [facility] pressure 20:09:00 [facility] Diastolic blood 2022-02-25 88 mm[Hg] University o f pressure 20:09:00 [facility] Heart rate 2022-02-25 97 /min [facility] 20:09:00 [facility] Respiratory rate 2022-02-25 17 /min [facility] 20:09:00 [facility] Body height 2022-02-25 170.2 cm [facility] 20:09:00 [facility] Body weight 2022-02-25 86.637 kg [facility] of 20:09:00 [facility] BMI 2022-02-25 29.91 kg/m2 [facility] 20:09:00 [facility] Oxygen saturation 2022-02-25 90 /min [facility] in Arterial blood 20:09:00 [facility] by Pulse oximetry Branch Systolic blood 2022-02-14 102 mm[Hg] [facility] pressure 14:38:00 [facility] Diastolic blood 2022-02-14 71 mm[Hg] University o f pressure 14:38:00 [facility] Heart rate 2022-02-14 111 /min [facility] 14:38:00 [facility] Body temperature 2022-02-14 37.22 Jo [facility] 14:38:00 [facility] Respiratory rate 2022-02-14 19 /min [facility] 14:38:00 [facility] Body height 2022-02-14 170.2 cm [facility] 14:38:00 [facility] Body weight 2022-02-14 85.049 kg [facility] of 14:38:00 [facility] BMI 2022-02-14 29.37 kg/m2 [facility] 14:38:00 [facility] Oxygen saturation 2022-02-14 92 /min pt states that [facility]i ty of in Arterial blood 14:38:00 is good for [facility] by Pulse oximetry her. Branch Systolic blood 2022-02-08 125 mm[Hg] [facility] of pressure 14:30:00 [facility] Diastolic blood 2022-02-08 82 mm[Hg] University o f pressure 14:30:00 [facility] Heart rate 2022-02-08 100 /min [facility] 14:30:00 [facility] Body temperature 2022-02-08 37 Jo [facility] 14:30:00 [facility] Body height 2022-02-08 170.2 cm [facility] 14:30:00 [facility] Body weight 2022-02-08 85.639 kg University of 14:30: [facility] BMI 2022-02-08 29.57 kg/m2 [facility] 14:30:00 [facility] Oxygen saturation 2022-02-08 93 /min [facility] in Arterial blood 14:30:00 [place] [facility] Pulse oximetry [facility] Systolic blood 2022-02-05 149 mm[Hg] [facility] pressure 19:08:00 [facility] Diastolic blood 2022-02-05 97 mm[Hg] University o f pressure 19:08:00 [facility] Heart rate 2022-02-05 128 /min [facility] 19:04:00 [facility] Body temperature 2022-02-05 39.17 Jo [facility] 19:04:00 [facility] Respiratory rate 2022-02-05 16 /min [facility] 19:04:00 [facility] Body height 2022-02-05 170.2 cm [facility] 19:04:00 [facility] Body weight 2022-02-05 87.629 kg [facility] of 19:04:00 [facility] BMI 2022-02-05 30.26 kg/m2 [facility] 19:04:00 [facility] Oxygen saturation 2022-02-05 99 /min [place] [facility] in Arterial blood 19:04:00 [facility] by Pulse oximetry Branch Systolic blood 2022-01-21 102 mm[Hg] [facility] pressure 22:03:00 [facility] Diastolic blood 2022-01-21 65 mm[Hg] University o f pressure 22:03:00 [facility] Heart rate 2022-01-21 98 /min [facility] 22:03:00 [facility] Body temperature 2022-01-21 37.22 Jo [facility] 22:03:00 [facility] Respiratory rate 2022-01-21 16 /min [facility] of 22:03:00 [facility] Body height 2022-01-21 170.2 cm [facility] of 22:03:00 [facility] Body weight 2022-01-21 89.721 kg [facility] of 22:03:00 [facility] BMI 2022-01-21 30.98 kg/m2 [facility] of 22:03:00 [facility] Oxygen saturation 2022-01-21 95 /min [facility] in Arterial blood 22:03:00 [facility] by Pulse oximetry Branch Systolic blood 2022-01-07 100 mm[Hg] [facility] pressure 21:27:00 [facility] Diastolic blood 2022-01-07 69 mm[Hg] University o f pressure 21:27:00 [facility] Heart rate 2022-01-07 93 /min [facility] 21:23:00 [facility] Body height 2022-01-07 170.2 cm [facility] 21:23:00 [facility] Body weight 2022-01-07 89.676 kg [facility] of 21:23:00 [facility] BMI 2022-01-07 30.96 kg/m2 University of 21:23:00 [facility] Oxygen saturation 2022-01-07 92 /min [facility] in Arterial blood 21:23:00 [facility] by Pulse oximetry Branch Systolic blood 2021-11-26 146 mm[Hg] [facility] of pressure 19:30:00 [facility] Diastolic blood 2021-11-26 79 mm[Hg] University o f pressure 19:30:00 [facility] Heart rate 2021-11-26 87 /min [facility] of 19:28:00 [facility] Body temperature 2021-11-26 37.17 Jo [facility] 19:28:00 [facility] Body height 2021-11-26 170.2 cm [facility] 19:28:00 [facility] Body weight 2021-11-26 89.767 kg [facility] of 19:28:00 [facility] BMI 2021-11-26 31.00 kg/m2 [facility] 19:28:00 [facility] Oxygen saturation 2021-11-26 96 /min [facility] in Arterial blood 19:28:00 [facility] by Pulse oximetry Branch WEIGHT 2019-10-27 92.8 kg 14:28:00 WEIGHT 2019-10-19 92.7 kg 00:00:00 WEIGHT 2019-10-13 91.6 kg 00:00:00 Systolic blood 2021-10-12 128 mm[Hg] [facility] pressure 17:10:00 [facility] Diastolic blood 2021-10-12 65 mm[Hg] [facility] pressure 17:10:00 Hospital Heart rate 2021-10-12 100 /min [facility] 17:10:00 Hospital Body temperature 2021-10-12 36.28 Jo [facility] 17:10:00 Hospital Respiratory rate 2021-10-12 19 /min [facility] 17:10:00 [facility] Oxygen saturation 2021-10-12 98 /min [facility] in Arterial blood 17:10:00 Hospital by Pulse oximetry Body height 2021-10-12 167.6 cm [facility] 13:08:00 Hospital Body weight 2021-10-12 88.6 kg [facility] 13:08:00 [facility] BMI 2021-10-12 31.53 kg/m2 [facility] 13:08:00 [facility] Procedures Procedure Date / Time Performing Clinician Source Performed EXTERNAL PROVIDER RECORDS 2022-10-21 05:01:00 Doctor Unassjulia, [facility] Name [facility] POCT HEMOGLOBIN A1C TEST 2022-10-18 15:16:00 Raz Tineo [facility] EXTERNAL PROVIDER RECORDS 2022-09-19 05:01:00 Doctor Unachristiano, [facility] Name [facility] XR ABDOMEN 1 VW 2022-08-21 18:17:48 [facility] POCT URINALYSIS 2022-08-21 18:03:00 [facility] POCT MOLECULAR FLU 2022-07-11 20:03:00 Margarita Peacock [facility] REFERRAL- 2022-07-10 05:01:00 Doctor Fabienne, [facility] REQUEST/RESPONSE [facility] MISCELLANEOUS LAB ORDER 2022-07-09 09:06:00 [facility] FLU 2022-06-18 17:29:46 My Tineothia [facility] VACC(),65+YR,0.5 Medica l Branch ML,IM,ADJUVANTED,QUAD(FLU AD) POCT GLUCOSE (AUTOMATED) 2022-06-11 18:19:00 Akilah Saenz [facility] POCT GLUCOSE (AUTOMATED) 2022-06-11 15:02:00 Akilah Saenz [facility] BASIC METABOLIC PANEL 2022-06-11 09:00:00 Deshawn High [facility] (NA, K, CL, CO2, GLUCOSE, Medica l Branch BUN, CREATININE, CA) CBC WITH DIFF 2022-06-11 09:00:00 Deshawn High [facility] POCT GLUCOSE (AUTOMATED) 2022-06-11 02:29:00 Akilah Saenz [facility] POCT GLUCOSE (AUTOMATED) 2022-06-10 22:19:00 Akilah Saenz [facility] POCT GLUCOSE (AUTOMATED) 2022-06-10 18:27:00 Akilah Saenz [facility] POCT GLUCOSE (AUTOMATED) 2022-06-10 14:35:00 Akilah Saenz [facility] MAGNESIUM 2022-06-10 08:39:00 Deshawn High [facility] BASIC METABOLIC PANEL 2022-06-10 08:39:00 Deshawn High [facility] (NA, K, CL, CO2, GLUCOSE, Medica l Branch BUN, CREATININE, CA) CBC WITH DIFF 2022-06-10 08:39:00 Deshawn High [facility] N-TERMINAL PRO-BNP 2022-06-10 08:39:00 Deshawn High [facility] POCT GLUCOSE (AUTOMATED) 2022-06-10 02:27:00 Akilah Saenz [facility] POCT GLUCOSE (AUTOMATED) 2022-06-09 22:30:00 Akilah Saenz [facility] POCT GLUCOSE (AUTOMATED) 2022-06-09 17:46:00 Akilah Saenz [facility] POCT GLUCOSE (AUTOMATED) 2022-06-09 14:01:00 Akilah Saenz [facility] BASIC METABOLIC PANEL 2022-06-09 10:47:00 Deshawn High [facility] (NA, K, CL, CO2, GLUCOSE, Medica l Branch BUN, CREATININE, CA) CBC WITH DIFF 2022-06-09 10:47:00 Deshawn High [facility] LACTIC ACID WHOLE BLOOD 2022-06-09 10:47:00 Deshawn High [facility] POCT GLUCOSE (AUTOMATED) 2022-06-09 02:14:00 Akilah Saenz [facility] POCT GLUCOSE (AUTOMATED) 2022-06-08 22:39:00 Akilah Saenz [facility] POCT GLUCOSE (AUTOMATED) 2022-06-08 18:00:00 Akilah Saenz [facility] POCT GLUCOSE (AUTOMATED) 2022-06-08 14:22:00 Akilah Saenz [facility] BASIC METABOLIC PANEL 2022-06-08 09:21:00 [facility] (NA, K, CL, CO2, GLUCOSE, Medica l Branch BUN, CREATININE, CA) CBC WITH DIFF 2022-06-08 09:21:00 [place] [facility] N-TERMINAL PRO-BNP 2022-06-08 09:21:00 Tonny Martinez [facility] POCT GLUCOSE (AUTOMATED) 2022-06-08 02:35:00 Akilah Saenz [facility] POCT GLUCOSE (AUTOMATED) 2022-06-07 22:43:00 Akilah Saenz [facility] POCT GLUCOSE (AUTOMATED) 2022-06-07 17:16:00 Akilah Saenz [facility] URINE DRUG (IMMUNOASSAY) 2022-06-07 15:19:00 Juan Pablo Fisher [facility] SCREEN URINE CULTURE 2022-06-07 15:19:00 Juan Pablo Fisher [facility] SODIUM, URINE RANDOM 2022-06-07 15:19:00 Juan Pablo Fisher [facility] PROTEIN CREAT RATIO URINE 2022-06-07 15:19:00 Juan Pablo Fisher [facility] POCT GLUCOSE (AUTOMATED) 2022-06-07 13:57:00 Aiklah Saenz [facility] LACTATE DEHYDROGENASE 2022-06-07 11:58:00 Juan Pablo Fisher [facility] SEDIMENTATION RATE 2022-06-07 11:58:00 Juan Pablo Fisher [facility] CBC WITH DIFF 2022-06-07 11:58:00 Natalia narda [facility] CREATINE KINASE 2022-06-07 11:10:00 Natalia narda [facility] URIC ACID 2022-06-07 11:10:00 Natalia [facility] FERRITIN SERUM 2022-06-07 11:10:00 [facility]ia [facility] C-REACTIVE PROTEIN 2022-06-07 11:10:00 Juan Pablo Fisher [facility] THYROID STIMULATING 2022-06-07 11:10:00 Juan Pablo Fisher [facility] HORMONE [facility] COMP. METABOLIC PANEL 2022-06-07 11:10:00 Juan Pablo Fisher [facility] ([id number]) [facility] LIPID PANEL ([id number])(TOTAL 2022-06-07 11:10:00 Juan Pablo Fisher [facility] CHOLESTEROL, [facility] TRIGLYCERIDES, HDL) IRON PANEL 2022-06-07 11:10:00 Natalia [facility] PROTHROMBIN TIME / INR 2022-06-07 11:10:00 Natalia narda [facility] URINALYSIS 2022-06-07 11:10:00 [facility] N-TERMINAL PRO-BNP 2022-06-07 11:10:00 Tonny Martinez [facility] PROCALCITONIN 2022-06-07 11:10:00 [facility] AC VBG + LACTIC ACID 2022-06-07 11:10:00 Juan Pablo Fisher [facility] POCT GLUCOSE (AUTOMATED) 2022-06-07 08:23:00 Akilah Saenz [facility] POCT GLUCOSE (AUTOMATED) 2022-06-07 03:02:00 Akilah Saenz [facility] TRANSTHORACIC ECHO (TTE) 2022-06-06 21:04:00 Akilah Saenz [facility] HB ECG ROUTINE & RHYTHM 2022-06-06 20:10:18 Danae Link [facility] COVID-19 (ID NOW RAPID 2022-06-06 20:10:00 Danae Link [facility] [facility] TESTING) [facility] Branch LAB ONLY COVID 2022-06-06 20:10:00 Danae Link [facility] INTERPRETATION [facility] AC PANEL 21 + LACTIC ACID 2022-06-06 18:51:00 [facility] 2022-06-06 18:47:00 Danae Link [facility] TROPONIN I 2022-06-06 18:47:00 Danae Link [facility] COMP. METABOLIC PANEL 2022-06-06 18:47:00 Danae Link [facility] ([id number]) [facility] CBC WITH DIFF 2022-06-06 18:47:00 Danae Link [facility] GLYCOSYLATED HEMOGLOBIN 2022-06-06 18:47:00 Akilah Saenz [facility] (A1C) [facility] N-TERMINAL PRO-BNP 2022-06-06 18:47:00 Danae Link [facility] XR CHEST 1 VW 2022-06-06 17:33:42 Danae Link [facility] CONSENT/REFUSAL FOR 2022-06-06 16:38:54 Doctor Unassigned, [facility] DIAGNOSIS AND TREATMENT Jolly [facility] POCT SARS-COV-2 ANTIGEN 2022-06-01 19:36:00 Torri Jung [facility] (BINAX NOW) [facility] POCT MOLECULAR FLU 2022-06-01 19:30:00 Unknown, Attending [facility] POCT MOLECULAR STREP 2022-06-01 19:27:00 Unknown, Attending [facility] EXTERNAL PROVIDER RECORDS 2022-05-24 06:01:00 Doctor Unassigned, [facility] Jolly [facility] CT ABDOMEN WO CONTRAST 2022-04-30 14:57:57 Raz Tineo [facility] CT THORAX WO CONTRAST 2022-04-01 20:36:46 Tyler Montejo [facility] XR CHEST 2 VW 2022-03-28 21:20:56 Jony Roy [facility] ASSIGNMENT OF BENEFITS 2022-03-28 19:52:23 Doctor Unassigned, [facility] EXTERNAL PROVIDER RECORDS 2022-02-28 06:01:00 Doctor Fabienne, [facility] Name [facility] POCT MOLECULAR FLU 2022-02-14 14:46:00 Unknown, Attending [facility] POCT MOLECULAR STREP 2022-02-14 14:44:00 Unknown, Attending [facility] POCT MOLECULAR FLU 2022-02-05 19:15:00 Unknown, Attending [facility] POCT MOLECULAR STREP 2022-02-05 19:13:00 Unknown, Attending [facility] POCT SARS-COV-2 ANTIGEN 2022-02-05 00:00:00 Rissa Baker [facility] (BINAX NOW) [facility] SCANNED LAB RESULTS 2022-01-21 05:01:00 Doctor Loving [facility] URINALYSIS 2021-11-26 22:10:[address] [facility] URINE CULTURE 2021-11-26 22:06:[address] [facility] GALV ONLY - VAGINAL 2021-11-26 22:06:00 Rza Tineo [facility] PATHOGENS BY NUCLEIC ACID [facility] TESTING COMP. METABOLIC PANEL 2021-11-26 20:45:00 Raz Tineo [facility] ([id number]) [facility] PNEUMOCOCCAL 20 CONJUGATE 2021-11-26 20:08:46 Raz Tineo [facility] (PREVNAR 20) VACCINE [facility] POC GLUCOSE 2021-10-12 15:49:00 [facility] [place] AN ELECTIVE 2021-10-12 14:34:00 Leonid [facility] ENDOTRACHEAL AIRWAY [place] ORBITOTOMY 2021-10-12 14:24:00 [facility] POC GLUCOSE 2021-10-12 13:36:00 [facility] EXTERNAL FIT DNA 2021-07-13 12:15:[address] [facility] Plan of Care Planned Activity Planned Date Details Comments Source Future Scheduled 2022 Screening for [facility] Test 01:09:27 malignant neoplasm of colon (procedure) [code = 643504519] Future Scheduled 2022 Screening for [facility] Test 01:09:27 malignant neoplasm of colon (procedure) [code = 178057270] Future Scheduled 2022 Hepatitis C screening [facility] Test 01:09:27 (procedure) [code = 320485926] Future Scheduled 2022 BREAST CANCER [facility] Test 01:09:27 SCREENING [code = BREAST CANCER SCREENING] Future Scheduled 2022 Screening for [facility] Test 01:09:27 malignant neoplasm of colon (procedure) [code = 077375322] Future Scheduled 2022 SHINGLES VACCINES (1 Met [facility] Test 01:09:27 of 2) [code = SHINGLES VACCINES (1 of 2)] Future Scheduled 2022 65+ PNEUMOCOCCAL [facility] Test 01:09:27 VACCINE (2 - PCV) [code = 65+ PNEUMOCOCCAL VACCINE (2 - PCV)] Future Scheduled 2022 COVID-19 VACCINE (4 - [facility] Test 01:09:27 Moderna series) [code = COVID-19 VACCINE (4 - Moderna series)] Future Scheduled 2022 INFLUENZA VACCINE Method [facility] Test 01:09:27 [code = INFLUENZA VACCINE] Future Scheduled 2022 Screening for [facility] Test 01:09:27 malignant neoplasm of colon (procedure) [code = 948146816] Future Scheduled 2022 Screening for [facility] Test 01:09:27 malignant neoplasm of colon (procedure) [code = 681707961] Future Scheduled 2022-08-24 Hepatitis C screening [facility] Test 23:33:59 (procedure) [code = 806858419] Future Scheduled 2022-08-24 BREAST CANCER [facility] Test 23:33:59 SCREENING [code = BREAST CANCER SCREENING] Future Scheduled 2022-08-[address] [facility] Test 23:33:59 [code = COLONOSCOPY SCREENING] Future Scheduled 2022-08-24 SHINGLES VACCINES (1 Met [facility] Test 23:33:59 of 2) [code = SHINGLES VACCINES (1 of 2)] Future Scheduled 2022-08-24 HEPATITIS B VACCINES Met [facility] Test 23:33:59 (1 of 3 - Risk 3-dose series) [code = HEPATITIS B VACCINES (1 of 3 - Risk 3-dose series)] Future Scheduled 2022-08-24 65+ [facility]CCAL [facility] Test 23:33:59 VACCINE (2 - PCV) [code = 65+ PNEUMOCOCCAL VACCINE (2 - PCV)] Future Scheduled 2022-08-24 COVID-19 VACCINE (4 - [facility] Test 23:33:59 Booster for Moderna series) [code = COVID-19 VACCINE (4 - Booster for Moderna series)] Future Scheduled 2022-08-24 INFLUENZA VACCINE Method [facility] Test 23:33:59 [code = INFLUENZA VACCINE] Future Scheduled 2022-08-24 Hepatitis C screening [facility] Test 23:33:59 (procedure) [code = 553485719] Future Scheduled 2022-08-24 BREAST CANCER [facility] Test 23:33:59 SCREENING [code = BREAST CANCER SCREENING] Future Scheduled 2022-08-[address] [facility] Test 23:33:59 [code = COLONOSCOPY SCREENING] Future Scheduled 2022-08-24 SHINGLES VACCINES (1 Met [facility] Test 23:33:59 of 2) [code = SHINGLES VACCINES (1 of 2)] Future Scheduled 2022-08-24 HEPATITIS B VACCINES Met [facility] Test 23:33:59 (1 of 3 - Risk 3-dose series) [code = HEPATITIS B VACCINES (1 of 3 - Risk 3-dose series)] Future Scheduled 2022-08-24 65+ [facility]UMOCOCCAL [facility] Test 23:33:59 VACCINE (2 - PCV) [code = 65+ PNEUMOCOCCAL VACCINE (2 - PCV)] Future Scheduled 2022-08-24 COVID-19 VACCINE (4 - [facility] Test 23:33:59 Booster for Moderna series) [code = COVID-19 VACCINE (4 - Booster for Moderna series)] Future Scheduled 2022-08-24 INFLUENZA VACCINE Method [facility] Test 23:33:59 [code = INFLUENZA VACCINE] Future Scheduled 2022-04-30 COVID-19 [facility] Test 08:39:11 (#1) [code = COVID-19 MD [...] Future Scheduled 2021-05-15 COVID-19 VACCINE (1) Met [facility] Test 14:46:23 [code = COVID-19 VACCINE (1)] Future Scheduled 2021-05-15 Hepatitis C screening [facility] Test 14:46:23 (procedure) [code = 544459210] Future Scheduled 2021-05-15 BREAST CANCER [facility] Test 14:46:23 SCREENING [code = BREAST CANCER SCREENING] Future Scheduled 2021-05-[address] [facility] Test 14:46:23 [code = COLONOSCOPY SCREENING] Future Scheduled 2021-05-15 SHINGLES VACCINES Method [facility] Test 14:46:23 (#1) [code = SHINGLES VACCINES (#1)] Future Scheduled 2021-05-15 INFLUENZA VACCINE Method [facility] Test 14:46:23 [code = INFLUENZA VACCINE] Future Scheduled 2021-05-15 65+ [facility]OCOCCAL [facility] Test 14:46:23 VACCINE (2 of 2 - PPSV23) [code = 65+ PNEUMOCOCCAL VACCINE (2 of 2 - PPSV23)] Encounters Start End Encounter Admission Attending Care Care Encounter Source Date/Time Date/Time Type Type Clinicians Facility Department ID 2021-02-12 Emergency [facility] [id number] [facility]12 [facility] [id number] Univers [facility]-02-10 Emergency [facility] [id number] Univers 12:50[facility] 2021-02-09 Emergency [facility] [id number] Univers [facility]:52[facility] 2022-11-29 2022-11-29 Outpatient R RIVKA [facility] [id number] Univers 13:00:00 13:00:00 RAZ villar [facility] 2022-11-27 2022-11-27 Outpatient R HUSAIN, [facility] [id number] Univers 13:45:00 13:45:00 MATEO villar [facility] 2022-11-19 2022-11-19 Outpatient R RENA ROLLINS [facility] 10 [id number] Univers 09:30:00 09:30:00 RENA ROLLINS i ty [facility] 2022 2022 Telephone [facility] 1..415.647 [id number] Univers 00:00:00 00:00:00 Raz HEALTH 350.1.13.10 it y of [facility] 4.2.7.2.686 Jefry as ANTHONY?BLEA [id number] [address] MEDICAL OFFICE [facility] 2022-11-02 2022-11-02 Nurse Nurse, [facility] 1..840.114 [id number] Univers 17:45:00 18:05:00 Visit Unknown, Attending HEALTH 350.1.13.10 ity of [place] 4.2.7.2.686 Jefry as ANTHONY?BLEA [id number] [address] MEDICAL OFFICE [facility] 2022-11-02 2022-11-02 Outpatient Bryan JUNG [facility] [id number] Univers 17:45:00 17:45:00 TORRI jian [facility] 2022-11-01 2022-11-01 [facility] [id number] Univers 10:45:00 10:45:00 MATEO villar [facility] 2022-11-01 2022-11-01 Telephone [facility] [id number] [id number] Univers 00:00:00 00:00:00 Raz HEALTH 350.1.13.10 it y of [facility] 4.2.7.2.686 Jefry as ANTHONY?BLEA [id number] [address] MEDICAL OFFICE [facility] 2022-10-25 2022-10-25 Abelardo Knutson [facility] 1.2.840.114 [id number] Univers 00:00:00 00:00:00 Barrington HEALTH 350.1.13.10 it y of [place] 4.2.7.2.686 Jefry as ANTHONY?BLEA [id number] [address] MEDICAL OFFICE [facility] 2022-10-22 2022-10-22 Refill [facility] 1.2.840.114 [id number] Univers 00:00:00 00:00:00 Raz HEALTH 350.1.13.10 it y of [place] 4.2.7.2.686 Jefry as ANTHONY?BLEA [id number] [address] OFFICE [facility] 2022-10-21 2022-10-21 Orders Doctor UYEN 1.2.840.114 [id number] Univers 00:00:00 00:00:00 Only Unassigned, FLASH 350.1.13.10 ity of Jolly [facility] 4.2.7.2.686 Jefry as [id number] [address] 2022-10-18 2022-10-18 [facility] [id number] Univers 09:30:00 10:32:16 RAZ ity of [facility] 2022-10-18 2022-10-18 [facility] 1.2.840.114 [id number] Univers 09:30:00 10:32:16 Visit Raz HEALTH 350.1.13.10 it y of [place] 4.2.7.2.686 Jefry as ANTHONY?BLEA [id number] [address] MEDICAL OFFICE [facility] 2022-10-17 2022-10-17 Telephone [facility] 1.2.590.327 [id number] Univers 00:00:00 00:00:00 Raz HEALTH 350.1.13.10 it y of [place] 4.2.7.2.686 Jefry as ANTHONY?BLEA [id number] [address] OFFICE [facility] 2022-10-11 2022-10-11 Telephone [facility] 1.2.333.802 [id number] Univers 00:00:00 00:00:00 Raz HEALTH 350.1.13.10 it y of [place] 4.2.7.2.686 Jefry as ANTHONY?BLEA [id number] [facility] [address] MEDICAL OFFICE [facility] 2022-10-09 2022-10-09 Telephone [facility] 1.2.779.806 [id number] Univers 00:00:00 00:00:00 Raz HEALTH 350.1.13.10 it y of [place] 4.2.7.2.686 Jefry as ANTHONY?BLEA [id number] [address] MEDICAL OFFICE [facility] 2022-10-04 2022-10-04 Outpatient R RENA ROLLINS [facility] 10 [id number] Univers 10:30:00 10:30:00 RENA ROLLINS i ty [facility] 2022-09-20 2022-09-20 Outpatient [facility] [id number] Univers 15:00:00 16:41:49 RAZ ity of [facility] 2022-09-20 2022-09-20 Office [facility] 1.2.840.114 [id number] Univers 15:00:00 16:41:49 Visit Raz HEALTH 350.1.13.10 it y of [facility] 4.2.7.2.686 Jefry as ANTHONY?BLEA [id number] [address] MEDICAL OFFICE [facility] 2022-09-19 2022-09-19 Orders Doctor UYEN 1.2.840.114 [id number] Univers 00:00:00 00:00:00 Only Unassigned, FLASH 350.1.13.10 ity of Jolly [facility] 4.2.7.2.686 Jefry as [id number] [address] 2022-09-06 2022-09-06 Telephone [facility]odoctors [facility]obi[facility] 1.2.840.114 [id number] Univers 00:00:00 00:00:00 Patsy HEALTH 350.1.13.10 it y of [place] 4.2.7.2.686 Jefry as ANTHONY?BLEA [id number] [facility] [address] MEDICAL OFFICE [facility] 2022-08-27 2022-08-27 [facility] 1.2.840.114 10 [id number] Univers 00:00:00 00:00:00 [facility] 350.1.13.10 it y of [place] 4.2.7.2.686 Jefry as ANTHONY?BLEA [id number] [place] dicethan LONG [address] MEDICAL OFFICE [facility] 2022-08-26 2022-08-26 Outpatient R RILEY [facility] [id number] Univers 14:30:00 14:30:00 SENDIL ity of [facility] 2022-08-21 2022-08-21 Urgent [facility] 1..840.11 4 [id number] Univers 12:30:00 14:07:31 Care Unknown, [facility] HEALTH 350.1.13.10 ity of [place] 4.2.7.2.686 Jefry as ANTHONY?BLEA [id number] [facility] 370 [facility] OFFICE [facility] 2022-08-21 2022-08-21 Outpatient [facility] [id number] Univers 13:01:59 13:45:00 PATSY ity [facility] 2022-08-21 2022-08-21 [facility] 1.2.840.114 [id number] Univers 13:01:59 13:45:00 Encounter [facility] 350.1.13.10 ity of [place] 4.2.7.2.686 Jefry as ANTHONY?BLEA [id number] [place] dicethan LONG [address] [facility] OFFICE [facility] 2022-08-15 2022-08-15 Felix Swanson [facility] 1.2.840.114 10 [id number] Univers 00:00:00 00:00:00 Management , [facility] 350.1.13.10 ity of [facility] 4.2.7.2.686 Jefry as ANTHONY?BLEA [id number] [place] dical KNEY [address] MEDICAL OFFICE [facility] 2022-08-14 2022-08-14 Pre Visit UYEN Perez 1.2.301.342 [id number] Univers 00:00:00 00:00:00 Outreach Mikhail VIDALES 350.1.13.10 ity of [facility] 4.2.7.2.686 Jefry as [id number] [facility] [address] 2022-08-09 2022-08-09 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 Lab, Ang - Db [facility] 1.2.840.1 14 [id number] Univers 11:00:00 11:15:00 Visit Raz Tineo 350.1.13.10 ity of [place] 4.2.7.2.686 Jefry as ANTHONY?BLEA [id number] [facility] 353 [facility] OFFICE [facility] 2022-08-09 2022-08-09 Outpatient [facility] [id number] Univers 10:30:00 10:47:38 RAZ dangy [facility] 2022-08-09 2022-08-09 Office [facility] 1.2.840.114 [id number] Univers 10:30:00 10:47:38 Visit [facility] 350.1.13.10 it y of [place] 4.2.7.2.686 Jefry as ANTHONY?BLEA [id number] [address] OFFICE [facility] 2022-08-09 2022-08-09 Refill [facility] 1.2.840.114 [id number] Univers 00:00:00 00:00:00 Raz HEALTH 350.1.13.10 it y of [place] 4.2.7.2.686 Jefry as ANTHONY?BLEA [id number] [address] 2022-08-02 2022-08-02 Telephone [facility] 1.2.272.140 [id number] Univers 00:00:00 00:00:00 Raz HEALTH 350.1.13.10 it y of [place] 4.2.7.2.686 Jefry as ANTHONY?BLEA [id number] [address] OFFICE [facility] 2022-07-19 2022-07-19 Telephone [facility] 1.2.494.115 [id number] Univers 00:00:00 00:00:00 Rama C [place] 350.1.13.10 i ty of [place].7.2.[place] [id number] Me dicethan TEIXEIRA [address] [facility] 2022-07-11 2022-07-11 Outpatient R MADONNA, [facility] [id number] Univers 14:30:00 15:05:23 MARGARITA ity of [facility] 2022-07-11 2022-07-11 Office [email or web address] 1.2.840.114 [id number] Univers 14:30:00 15:05:23 Visit Margarita A HEALTH 350.1.13.10 i ty of [place] 4.2.7.2.686 Jefry as ANTHONY?BLEA [phone] [place] dicethan [address] [facility] OFFICE [facility] 2022-07-11 2022-07-11 Telephone [facility] 1.2.321.935 [id number] Univers 00:00:00 00:00:00 Raz HEALTH 350.1.13.10 it y of [place] 4.2.7.2.686 Jefry as ANTHONY?BLEA [id number] [place] dicethan [address] OFFICE [facility] 2022-07-11 2022-07-11 Telephone [email or web address] 1.2.117.298 [id number] Univers 00:00:00 00:00:00 Margarita A HEALTH 350.1.13.10 i ty of [place] 4.2.7.2.686 Jefry as ANTHONY?BLEA [id number] [address] 2022-07-10 2022-07-10 Orders Doctor UYEN 1.2.840.114 [id number] Univers 00:00:00 00:00:00 Only Unassigned, FLASH 350.1.13.10 ity of Jolly [facility] 4.2.7.2.686 Jefry as [id number] [address] 2022-07-09 2022-07-09 Lab [facility] [id number] 00:00:00 00:00:00 Requisitio [facility] 2022-07-09 2022-07-09 Lab [facility] [id number] 00:00:00 00:00:00 Requisitio [facility] 2022-07-02 2022-07-02 Telephone [facility] 1.2.167.971 [id number] Univers 00:00:00 00:00:00 Rama C [place] 350.1.13.[address] [facility] 4.2.7.[place] [id number] [facility] 296 [facility] 2022-07-01 2022-07-01 Outpatient R REILLY [facility] [id number] Univers 09:40:00 09:40:00 TONNY villar o f [facility] 2022-06-27 2022-06-27 Urgent Lakeishakim Dhruvdavin [facility] 1.2.840.114 [id number] Univers 14:00:00 14:20:00 Care Unknown, [facility] 350.1.13.10 ity of [place] 4.2.7.2.686 Jefry as ANTHONY?BLEA [phone] [facility] 370 [facility] OFFICE [facility] 2022-06-27 2022-06-27 Outpatient R MANUELA [facility] [id number] Univers 14:00:00 14:00:00 JONY villar [facility] 2022-06-26 2022-06-26 Telephone [facility] 1.2.755.423 [id number] Univers 00:00:00 00:00:00 [facility] 350.1.13.10 it y of [place] 4.2.7.2.686 Jefry as ANTHONY?BLEA [id number] [facility] 044 [facility] OFFICE [facility] 2022-06-25 2022-06-25 Telephone [facility] 1.2.480.569 [id number] Univers 00:00:00 00:00:00 Rama C [place] 350.1.13.[address] [facility] 4.2.[place] [id number] [facility] 296 [facility] 2022-06-18 2022-06-18 Salvage Repairer Lab, Ang - Wolf [facility] 1.2.840.1 14 [id number] Univers 11:45:00 12:55:15 Visit Anene, [facility] 350.1.13.10 ity of [facility] 4.2.7.2.686 Jefry as ANTHONY?BLEA [phone] [place] agustin LONG [address] [facility] OFFICE [facility] 2022-06-18 2022-06-18 Outpatient R RIVKA [facility] [id number] Univers 11:00:00 11:38:01 RAZ ity of [facility] 2022-06-18 2022-06-18 Office [facility] 1.2.840.114 [id number] Univers 11:00:00 11:38:01 Visit [facility] 350.1.13.10 it y of [place] 4.2.7.2.686 Jefry as ANTHONY?BLEA [id number] [place] agustin LONG [address] [facility] OFFICE [facility] 2022-06-13 2022-06-13 Outpatient R RENA ROLLINS [facility] 10 [id number] Univers 09:00:00 09:51:36 RENA ROLLINS i ty of [facility] 2022-06-13 2022-06-13 Office [facility] 1.2.840.114 [id number] Univers 09:00:00 09:51:36 Visit Rena [place] 350.1.13.10 i ty of [place] 4[place]2.7.2.[place] [id number] [place] dical NAL 0[address] [facility] 2022-06-13 2022-06-13 Telephone [facility] 1.2.192.437 [id number] Univers 00:00:00 00:00:00 Rena [facility] 350.1.13.[address] [facility] 4.2.7.2.[place] [id number] [place] dical NAL 0[address] [facility] 2022-06-12 2022-06-12 Telephone [facility]PRES[facility] 1.2.491.915 [id number] Univers 00:00:00 00:00:00 Katie ALLENLOBITO 350.1.13.[address] [facility] [facility] 4.2.7.2.[place] [id number] [place] dical NAL 059 [facility] 2022-06-12 2022-06-12 Transition [facility] 1.2.840.114 10 [id number] Univers 00:00:00 00:00:00 of Care Florishira DOWNEY 350.1.13.10 i ty of [place] 4.2.7[place] [id number] [facility] [address] 2022-06-06 2022-06-11 Inpatient X LETTY [facility] [id number] Univers 11:00:00 17:00:00 AKILAH villar of [facility] 2022-06-06 2022-06-11 [facility] Danae Link [facility] 1.2.840.1 14 [id number] Univers 11:00:00 17:00:00 Encounter Akilah Saenz 350.1.13.10 ity [place] [id number] [facility] [address] 2022-06-04 2022-06-04 [facility] 1..732.669 [id number] Univers 00:00:00 00:00:00 Raz HEALTH 350.1.13.10 it y of [facility] 4.2.7.2.686 Jefry as ANTHONY?BLEA [id number] [facility] [address] MEDICAL OFFICE [facility]ING 2022-06-01 2022-06-01 Outpatient R ZEFERINO [facility] [id number] Univers 13:20:00 14:42:18 REEGARIMA villar [facility] 2022-06-01 2022-06-01 Urgent Omar Mcgarry [facility] .2.840.11 4 [id number] Univers 13:20:00 13:40:00 Care Unknown, Attending HEALTH 350.1.13.10 ity [facility] 4.2.7.2.686 Jefry as ANTHONY?BLEA [id number] [facility] [address] MEDICAL OFFICE BUILDING 2022-05-28 2022-05-28 [facility] 1.2.840.114 [id number] Univers 00:00:00 00:00:00 Raz HEALTH 350.1.13.10 it y of [facility] 4.2.7.2.686 Jefry as ANTHONY?BLEA [phone] [address] MEDICAL OFFICE [facility] 2022-05-24 2022-05-24 Orders Doctor UYEN 1.2.840.114 [id number] Univers 00:00:00 00:00:00 Only Unassigned, FLASH 350.1.13.10 ity of [place] [facility] 4.2.7.2.686 Jefry as [id number] [address] 2022-05-20 2022-05-20 Refill Doctor [facility] 1.2.840.114 [id number] Univers 00:00:00 00:00:00 Unassigned, HEALTH 350.1.13.10 ity of [place] 4.2.7.2.686 Jefry as ANTHONY?BLEA [id number] [address] OFFICE [facility] 2022-05-20 2022-05-20 Refill Doctor [facility] 1.2.840.114 [id number] Univers 00:00:00 00:00:00 Unassigned, HEALTH 350.1.13.10 ity of [place] 4.2.7.2.686 Jefry as ANTHONY?BLEA [id number] [address] OFFICE [facility] 2022-05-17 2022-05-17 Refill Rivka [facility] 1.2.840.114 [id number] Univers 00:00:00 00:00:00 Raz HEALTH 350.1.13.10 it y of [place] 4.2.7.2.686 Jefry as ANTHONY?BLEA [id number] [address] OFFICE [facility] 2022-05-09 2022-05-09 Telephone Rivka [facility] 1.2.554.998 [id number] Univers 00:00:00 00:00:00 Raz HEALTH 350.1.13.10 it y of [place] 4.2.7.2.686 Jefry as ANTHONY?BLEA [id number] [address] OFFICE [facility] 2022-04-30 2022-04-30 Outpatient R RIVKA [facility] [id number] Univers 08:39:10 23:59:00 RAZ villar [facility] 2022-04-30 2022-04-30 [facility] 1.2.840.114 [id number] Univers 08:39:10 23:59:00 Encounter Raz LEACH 350.1.13.10 ity of [place].7.2.686 [place] [id number] [address] 2022-04-24 2022-04-24 Telephone [facility] 1.2.467.948 [id number] Univers 00:00:00 00:00:00 Raz HEALTH 350.1.13.10 it y of [place] 4.2.7.2.686 Jefry as ANTHONY?BLEA [id number] [address] MEDICAL OFFICE [facility] 2022-04-22 2022-04-22 [facility] 1.2.912.889 [id number] Univers 00:00:00 00:00:00 Raz HEALTH 350.1.13.10 it y of [place] 4.2.7.2.686 Jefry as ANTHONY?BLEA [id number] [address] OFFICE [facility] 2022-04-04 2022-04-04 Outpatient R RILEY [facility] [id number] Univers 13:00:00 13:00:00 SENDIL jose manuel [facility] 2022-04-04 2022-04-04 Outpatient R RILEY [facility] [id number] Univers 13:00:00 13:00:00 [facility] 2022-04-03 Telephone [facility] 1.2.464.213 [id number] Univers 00:00:00 00:00:00 Raz HEALTH 350.1.13.10 it y of [place] 4.2.7.2.686 Jefry as ANTHONY?BLEA [id number] [address] OFFICE [facility] 2022-04-01 2022-04-01 Outpatient [facility] [id number] Univers 13:54:47 23:59:00 TYLER jian [facility] 2022-04-01 2022-04-01 [facility] 1.2.840.114 [id number] Univers 13:50:00 23:59:00 Encounter Tyler LEACH 350.1.13.10 ity [place].2.[place] [id number] [address] 2022-04-01 2022-04-01 Telephone [facility] 1.2.335.173 [id number] 1200 Univers 00:00:00 00:00:00 Tyler HEALTH 350.1.13.10 it y of [place] 4.2.7.2.686 Jefry as ANTHONY?BLEA [id number] [facility] [address] MEDICAL OFFICE [facility] 2022-03-29 2022-03-29 Office [facility] 1.2.840.114 [id number] Univers 11:30:00 12:00:00 Visit Tyler HEALTH 350.1.13.10 it y of [facility] 4.2.7.2.686 Jefry as ANTHONY?BLEA [id number] [address] OFFICE [facility] 2022-03-29 2022-03-29 Outpatient [facility] [id number] Univers 11:30:00 11:30:00 TYLER ity of [facility] 2022-03-28 2022-03-28 [facility] 1.2.645.892 [id number] Univers 15:10:02 23:59:00 Encounter Randavin HEALTH 350.1.13.10 ity of [facility] 4.2.7.2.686 Jefry as ANTHONY?BLEA [id number] [place] dicny MERCEDES [address] MEDICAL OFFICE [facility] 2022-03-28 2022-03-28 Salvage Repairer Lab, Ang - Db [facility] 1.2.840.1 14 [id number] Univers 15:30:00 15:45:00 Visit [facility] HEALTH 350.1.13.10 ity of [facility] 4.2.7.2.686 Jefry as ANTHONY?BLEA [id number] [place] dical MERCEDES [address] MEDICAL OFFICE [facility] 2022-03-28 2022-03-28 Urgent Jony mcknight [facility] 1.2.840.114 [id number] Univers 15:00:00 15:28:06 Care Unknown, Attending HEALTH 350.1.13.10 ity of [facility] 4.2.7.2.686 Jefry as ANTHONY?BLEA [id number] [facility] [address] MEDICAL OFFICE [facility] 2022-03-28 2022-03-28 Outpatient R RADIOLOGY [facility] [id number] Univers 13:53:16 15:09:00 ity of [facility] 2022-03-28 2022-03-28 Hospital Radiology [facility] 1.2.840.114 [id number] Univers 13:53:16 15:09:00 Encounter ANGLELOBITO 350.1.13.[address] [facility] 4.2.7.2.[place] [id number] [facility] [address] 2022-03-28 2022-03-28 Orders Doctor UYEN 1.2.840.114 [id number] Univers 00:00:00 00:00:00 Only Unassigned, FLASH 350.1.13.10 ity of [place] HOSPITAL 4.2.7.2.686 Jefry as [id number] [facility] [address] 2022-03-11 2022-03-11 Outpatient [facility] [id number] Univers 14:30:00 15:10:43 RAZ ity of [facility] 2022-03-11 2022-03-11 Office [facility] 1.2.840.114 [id number] Univers 14:30:00 15:10:43 [facility] 350.1.13.10 it y of [place] 4.2.7.2.686 Jefry as ANTHONY?BLEA [id number] [facility] [address] MEDICAL OFFICE BUILDING 2022-02-28 2022-02-28 Orders Doctor UYEN 1.2.840.114 [id number] Univers 00:00:00 00:00:00 Only Unassigned, FLASH 350.1.13.10 ity of [place] HOSPITAL 4.2.7.2.686 Jefry as [id number] [address] 2022-02-25 2022-02-25 Outpatient R RILEY, [facility] [id number] Univers 14:00:00 14:36:52 SENDIL ity of [facility] 2022-02-25 2022-02-25 Office Riley [facility] 1.2.840.114 [id number] Univers 14:00:00 14:36:52 Visit Katie DanaeJesusChinoJesus LEACH 350.1.13.10 ity of [place].2.[place] [id number] [place] dical NAL 059 [facility] 2022-02-14 2022-02-14 Urgent Tracy Cash [facility] 1.2.840 .114 [id number] Univers 09:20:00 09:40:00 Care Unknown, Attending HEALTH 350.1.13.10 ity of [place] 4.2.7.2.686 Jefry as ANTHONY?BLEA [id number] [facility] [address] MEDICAL OFFICE [facility] 2022-02-14 2022-02-14 Outpatient R SHREYA [facility] [id number] Univers 09:20:00 09:20:00 TRACY villar o f [facility] 2022-02-13 2022-02-13 Telephone Team, [facility] UYEN 1.2.840.114 [id number] Univers 00:00:00 00:00:00 Health FLASH 350.1.13.[address] [facility] 4.2.7.2.686 [place] [id number] [facility] [address] 2022-02-11 2022-02-11 Telephone Rivka [facility] 1.2.314.127 [id number] Univers 00:00:00 00:00:00 Raz HEALTH 350.1.13.10 it y of [place] 4.2.7.2.686 Jefry as ANTHONY?BLEA [id number] [place] dical MERCEDES [address] MEDICAL OFFICE [facility] 2022-02-08 2022-02-08 Salvage Repairer Lab, Daniel - Wolf [facility] 1.2.840.1 14 [id number] Univers 10:15:00 10:30:00 Visit Raz Tineo HEALTH 350.1.13.10 ity of [place] 4.2.7.2.686 Jefry as ANTHONY?BLEA [phone] Me dical KNEY [address] MEDICAL OFFICE BUILDING 2022-02-08 2022-02-08 Outpatient R RIVKA [facility] [id number] Univers 09:30:00 10:09:10 RAZ itjose manuel [facility] 2022-02-08 2022-02-08 Office [facility] 1.2.840.114 [id number] Univers 09:30:00 10:09:10 Visit Raz HEALTH 350.1.13.10 it y of [place] 4.2.7.2.686 Jefry as ANTHONY?BLEA [id number] [facility] 044 [facility] OFFICE [facility] 2022-02-06 2022-02-06 Telephone Manuel [facility] 1.2.840.114 [id number] Univers 00:00:00 00:00:00 Ang Db HEALTH 350.1.13.10 it y of Urgent Care [place] 4.2.7.2.686 [place] ANTHONY?BLEA [id number] [facility] 370 [facility] OFFICE [facility] 2022-02-05 2022-02-05 Outpatient R SAMUEL [facility] [id number] Univers 14:00:00 14:31:10 RISSACELESTINO villar [facility] 2022-02-05 2022-02-05 Urgent Rissa Baker [facility] 1.2.840.114 [id number] Univers 14:00:00 14:31:10 Care Unknown, Attending HEALTH 350.1.13.10 ity of [facility] 4.2.7.2.686 Jefry as ANTHONY?BLEA [id number] [facility] 370 [facility] OFFICE [facility] 2022-01-22 2022-01-22 Telephone Rivka [facility] 1.2.751.206 [id number] Univers 00:00:00 00:00:00 Raz HEALTH 350.1.13.10 it y of [place] 4.2.7.2.686 Jefry as ANTHONY?BLEA [id number] [facility] 044 [facility] OFFICE [facility] 2022-01-22 2022-01-22 Telephone Belkys Joshua 1.2.840.114 [id number] Univers 00:00:00 00:00:00 FLASH 350.1.13.10 it y of HOSPITAL 4.2.7.2.686 Jefry as [id number] [facility] [address] 2022-01-21 2022-01-21 Outpatient [facility] [id number] Univers 16:40:00 17:20:29 RISSA ity [facility] 2022-01-21 2022-01-21 Urgent Rissa Baker [facility] 1.2.840.114 [id number] Univers 16:40:00 17:20:29 [facility] 350.1.13.10 ity of [place] 4.2.7.2.686 Jefry as ANTHONY?BLEA [phone] [place] texny ELOINA [address] MEDICAL OFFICE [facility] 2022-01-21 2022-01-21 Orders Doctor UYEN 1.2.840.114 [id number] Univers 00:00:00 00:00:00 Only Unassigned, BRIGHTON 350.1.13.10 ity of [place] [facility] 4.2.7.2.686 Jefry as [id number] [facility] [address] 2022-01-17 2022-01-17 Outpatient R [facility] [id number] Univers 14:30:00 14:30:00 MATEO [facility] 2022-01-16 2022-01-16 Abelardo [facility] 1.2.840.114 [id number] Univers 00:00:00 00:00:00 [facility] 350.1.13.10 it y of [place] 4.2.7.2.686 Jefry as ANTHONY?BLEA [id number] [place] dicethan ELOINACHIQUITA [address] MEDICAL OFFICE [facility] 2022-01-10 2022-01-10 Lonnie [facility] 1.2.435.729 [id number] Univers 00:00:00 00:00:00 Katie LEACH 350.1.13.10 ity of [place] 4.2.7.2.[place] [id number] [place] agustin TEIXEIRA 059 [facility] 2022-01-07 2022-01-07 Outpatient [facility] [id number] Univers 16:00:00 16:49:54 RAZ ity of [facility] 2022-01-07 2022-01-07 Office [facility] 1.2.840.114 [id number] Univers 16:00:00 16:49:54 Visit Raz HEALTH 350.1.13.10 it y of [place] 4.2.7.2.686 Jefry as ANTHONY?BLEA [id number] [address] MEDICAL OFFICE [facility] 2022-01-07 2022-01-07 Telephone [facility] 1.2.052.752 [id number] [id number] Univers 00:00:00 00:00:00 Raz HEALTH 350.1.13.10 it y of [place] 4.2.7.2.686 Jefry as ANTHONY?BLEA [id number] [address] OFFICE [facility] 2021-12-27 2021-12-27 Abelardo ValenciaPRESBYTERIAN [facility] 1.2.840.114 [id number] Univers 00:00:00 00:00:00 Wondiful A HEALTH 350.1.13.10 ity of [place] 4.2.7.2.686 Jefry as ANTHONY?BLEA [id number] [address] OFFICE [facility] 2021-12-03 2021-12-03 Outpatient R RIVKA [facility] [id number] Univers 00:00:00 00:00:00 RAZ villar [facility] 2021-11-30 2021-11-30 Refill [facility] 1.2.840.114 [id number] Univers 00:00:00 00:00:00 Raz HEALTH 350.1.13.10 it y of [place] 4.2.7.2.686 Jefry as NATHONY?BLEA [id number] [address] MEDICAL OFFICE [facility] 2021-11-30 2021-11-30 Telephone [facility] 1.2.505.229 [id number] Univers 00:00:00 00:00:00 Raz HEALTH 350.1.13.10 it y of [place] 4.2.7.2.686 Jefry as ANTHONY?BLEA [phone] Me [address] OFFICE [facility] 2021-11-30 2021-11-30 Refill [facility]PRES[facility] 1.2.840.114 [id number] Univers 00:00:00 00:00:00 Wondiful A HEALTH 350.1.13.10 ity of [place] 4.2.7.2.686 Jefry as ANTHONY?BLEA [id number] [address] OFFICE [facility] 2021-11-27 2021-11-27 Telephone Rivka [facility] 1.2.194.113 [id number] Univers 00:00:00 00:00:00 Raz HEALTH 350.1.13.10 it y of [place] 4.2.7.2.686 Jefry as ANTHONY?BLEA [id number] [address] OFFICE [facility] 2021-11-26 2021-11-26 Salvage Repairer Lab, Ang - [facility] [place] 1.2.840.1 14 [id number] Univers 15:30:00 15:45:00 Visit Rivka Raz HEALTH 350.1.13.10 ity [facility] 4.2.7.2.686 Jefry as ANTHONY?BLEA [id number] [facility] 353 [facility] OFFICE [facility] 2021-11-26 2021-11-26 Outpatient R RIVKA [facility] [id number] Univers 14:30:00 15:28:20 RAZ itjose manuel [facility] 2021-11-26 2021-11-26 Office [facility] 1.2.840.114 [id number] Univers 14:30:00 15:28:20 Visit Raz HEALTH 350.1.13.10 it y of [facility] 4.2.7.2.686 Jefry as ANTHONY?BLEA [id number] [address] OFFICE [facility] 2021-11-26 2021-11-26 Outpatient [facility] [id number] Univers 14:30:00 15:28:20 RAZ ity [facility] 2021-11-26 2021-11-26 Orders Doctor QIU 1.2.840.114 [id number] Univers 00:00:00 00:00:00 Only Unassigned, FLASH 350.1.13.10 ity of [place] HOSPITAL 4.2.7.2.686 Jefry as [id number] [address] 2021-11-22 2021-11-22 Refjacob Valencia [facility] 1.2.840.114 [id number] Univers 00:00:00 00:00:00 Wondiful A HEALTH 350.1.13.10 ity of [place] 4.2.7.2.686 Jefry as ANTHONY?BLEA [id number] [address] MEDICAL OFFICE [facility] 2021-11-16 2021-11-16 Telephone Rivka [facility] 1.2.441.972 [id number] 1698 Univers 00:00:00 00:00:00 Raz HEALTH 350.1.13.10 it y [facility] 4.2.7.2.686 Jefry as ANTHONY?BLEA [id number] [address] OFFICE [facility] 2021-11-13 2021-11-13 Orders Doctor UYEN 1.2.840.114 [id number] Univers 00:00:00 00:00:00 Only Unassigned, FLASH 350.1.13.10 ity of [place] HOSPITAL 4.2.7.2.686 Jefry as [id number] [address] 2021-11-09 2021-11-09 Telephone Manuel [facility] 1.2.840.114 [id number] Univers 00:00:00 00:00:00 Ang Db HEALTH 350.1.13.10 it y of Urgent Care [facility] 4.2.7.2.686 [place] ANTHONY?BLEA [id number] [facility] [address] MEDICAL OFFICE [facility] 2021-11-05 2021-11-05 Refjacob Tineo [facility] 1.2.840.114 [id number] Univers 00:00:00 00:00:00 Raz HEALTH 350.1.13.10 it y of [place] 4.2.7.2.686 Jefry as ANTHONY?BLEA [id number] [address] MEDICAL OFFICE [facility] 2021-10-27 2021-10-27 Outpatient R JEAN-PAUL [facility] [id number] Univers 15:40:00 16:22:59 TARSHA ity [facility] 2021-10-27 2021-10-27 Urgent Tarsha Jeong [facility] 1.2. 840.114 [id number] Univers 15:40:00 16:22:59 Care ShreyaTracy HEALTH 350.1.13.10 ity of [facility] 4.2.7.2.686 Jefry as ANTHONY?BLEA [id number] [facility] [address] MEDICAL OFFICE [facility] 2021-10-27 2021-10-27 Refjacob ValenciaPRES[facility] 1.2.840.114 [id number] Univers 00:00:00 00:00:00 Wondiful A HEALTH 350.1.13.10 ity of [facility] 4.2.7.2.686 Jefry as ANTHONY?BLEA [id number] [facility] 044 [facility] OFFICE [facility] 2021-10-25 2021-10-25 Outpatient Bryan LEONARDO [facility] [id number] Univers 14:45:00 14:45:00 [facility] 2021-10-24 2021-10-24 [facility]PRES[facility] 1.2.840.114 [id number] Univers 00:00:00 00:00:00 Wondiful A HEALTH 350.1.13.10 ity of [place] 4.2.7.2.686 Jefry as ANTHONY?BLEA [id number] [address] OFFICE [facility] 2021-10-12 2021-10-12 [facility] [place] 1.2.840.1 [id number] [id number] Methodi 07:19:00 12:45:00 Encounter Rickey 64733.1.[address] 3.430.2.7 Hospit a .3.619604 l .8 2021-10-12 2021-10-12 Anesthesia Rohan Hughes 1.2.840 .1 [id number] Methodi 09:22:00 10:47:00 Event Marisela Jaquez 44527.1.[address] 3.430.2.7 Hospit a .3.268930 l .8 2021-10-12 2021-10-12 Surgery Soparkar, 1.2.840.1 [id number] 2100 265642 Methodi 09:00:00 10:45:[address] 3.430.2.7 Hospit a .3.389011 l .8 2021-10-12 2021-10-12 Travel 1.2.840.1 1.2.708.583 8133 [id number] Methodi 00:00:00 00:00:[address] 3.430.2.7 0.2.7.3.698 Ho spita .3.374489 084.8 l .8 2021-10-09 2021-10-09 Telephone Riley [facility] 1.2.202.500 [id number] 7748 Univers 00:00:00 00:00:00 Sendeugene LEACH 350.1.13.10 ity [facility] 4.2.7.2.686 [facility] [phone] [place] dical [facility] 059 [facility] 2021-10-05 2021-10-05 Outpatient R IDRIS [facility] [id number] Univers 10:24:33 23:59:00 ROXY itjose manuel [facility] 2021-10-05 2021-10-05 [facility] 1.2.840.114 [id number] Univers 10:24:33 23:59:00 Encounter Roxy LEACH 350.1.13.10 ity [facility] 4.2.7.2.686 [facility] [id number] [facility] [address] 2021-10-05 2021-10-05 Outpatient [facility] [id number] Univers 11:00:00 11:00:00 SENDIL itjose manuel [facility] 2021-10-04 2021-10-04 Patient Doctor [facility] 1.2.840.114 [id number] Univers 00:00:00 00:00:00 Secure Msg Unassigned, HEALTH 350.1.13.10 ity of [place] 4.2.7.2.686 Jefry as ANTHONY?BLEA [id number] [place] agustin [address] OFFICE [facility] 2021-10-04 2021-10-04 Telephone [facility] 1.2.747.991 [id number] Univers 00:00:00 00:00:00 Sendil Margi LEACH 350.1.13.[address] [facility] 4.2.7.2.[place] [id number] [address] 2021-10-03 2021-10-03 Outpatient R [facility] [id number] Univers 08:30:00 08:53:35 SENDIL ity [facility] 2021-10-03 2021-10-03 Office [facility] 1.2.840.114 [id number] Univers 08:30:00 08:53:35 Visit Katie LEACH 350.1.13.10 ity of [place].2.[place] [id number] [address] 2021-10-03 2021-10-03 Outpatient R [facility] [id number] Univers 08:30:00 08:53:35 SENDIL ity [facility] 2021-10-03 2021-10-03 Outpatient R [facility] [id number] Univers 08:30:00 08:30:00 SENDIL ity [facility] 2021-10-03 2021-10-03 [facility] 1.2.434.651 [id number] Univers 00:00:00 00:00:00 Sendeugene LEACH 350.1.13.10 ity of [place].7.2.[place] [id number] [address] 2021-10-01 2021-10-01 Salvage Repairer Lab, Ang - Db [facility] 1.2.840.1 [id number] Univers 13:15:00 13:30:00 Visit Raz Tineo [facility] [id number] ity of [place] 4.2.7.2.686 Jefry as ANTHONY?BLEA [phone] [place] agustin [facility] [address] MEDICAL OFFICE BUILDING 2021-10-01 2021-10-01 Outpatient R HELLENMARILOU [facility] [id number] Univers 13:15:00 13:15:00 RAZ ity [facility] 2021-10-01 2021-10-01 [facility] 1.2.840.114 [id number] Univers 11:00:00 11:36:45 Visit [facility] [id number] it y of [place] 4.2.7.2.686 Jefry as ANTHONY?BLEA [phone] [address] MEDICAL OFFICE BUILDING 2021-10-01 2021-10-01 Outpatient R RIVKA [facility] [id number] Univers 11:00:00 11:36:45 RAZ jian [facility] 2021-10-01 2021-10-01 Telephone BLAKE Leonardo 1..840.114 [id number] Univers 00:00:00 00:00:00 Colin Bob HEALTH [id number] ity of [facility] [phone] [address] 2021-10-01 2021-10-01 Patient Leonardo, [facility] 1.2.840.114 [id number] Univers 00:00:00 00:00:00 Secure Msg Colin Bob MULTISPEC 350.1.13.10 ity of [facility] 4[place]2.[place].2.[place] [facility] [phone] [address] [facility] 2021-09-27 2021-09-27 Outpatient R RENA ROLLINS [facility] 10 [id number] Univers 15:00:00 15:00:00 RENA ROLLINS i [facility] 2021-09-26 2021-09-26 [facility]phone [facility] [id number] Univers 00:00:00 00:00:00 Katie LEACH [id number] it[id number] [phone] Me dical NAL [address] [facility] 2021-09-25 2021-09-25 Emergency [facility] 1.2.047.660 [id number] Univers 18:39:00 23:54:00 Johnnie LEACH 350.1.13.10 i ty of [place] [id number] [facility] [address] 2021-09-25 2021-09-25 [facility] [id number] Univers 15:04:57 18:38:00 RAZ jian [facility] 2021-09-25 2021-09-25 Outpatient [facility] ERT [id number] Univers 15:04:57 18:38:00 RAZ jian [facility] 2021-09-25 2021-09-25 [facility] 1.2.840.114 [id number] Univers 13:33:24 18:38:00 Encounter Raz HAYLEE 350.1.13.10 ity [facility] [place] [phone] [facility] [address] 2021-09-25 2021-09-25 Nurse Nurse, [facility] 1.2.840.114 [id number] Univers 17:45:00 18:05:00 Visit [facility] [id number] ity [facility] [id number] Jefry as ANTHONY?BLEA [phone] [place] dical KNEY [address] MEDICAL OFFICE BUILDING 2021-09-25 2021-09-25 Outpatient [facility] [id number] Univers 14:30:00 14:30:00 MATEO villar [facility] 2021-09-25 2021-09-25 Outpatient [facility] [id number] Univers 00:00:00 00:00:00 RAZ villar [facility] 2021-09-21 2021-09-21 Transition [facility] Dhaliwal 1.2.840.114 [id number] Univers 00:00:00 00:00:00 of Angelita ARREDONDOY 350.1.13.10 it y [place] [id number] [facility] [address] 2021-09-18 2021-09-20 Outpatient X [facility] [id number] Univers 15:23:00 12:38:00 GUS villar [facility] 2021-09-18 2021-09-20 Emergency MiguelJake laujulian [facility] 1.2.840. 114 [id number] Univers 15:23:00 12:38:00 Gus Stewart HAYLEE 350.1.13.10 ity of [place].2.7.2.[place] [id number] [facility] 081 Branch 2021-09-20 2021-09-20 Telephone [facility] 1.2.578.831 [id number] Univers 00:00:00 00:00:00 Raz HEALTH 350.1.13.10 it y of [place] 4.2.7.2.686 Jefry as ANTHONY?BLEA [phone] [place] dicethan KNEY [address] MEDICAL OFFICE BUILDING 2021-09-18 2021-09-18 Outpatient R LISHA [facility] [id number] Univers 14:30:00 15:37:33 MATEO leongjose manuel [facility] 2021-09-18 2021-09-18 Ancillary Marcie English [facility] 1.2.84 0.114 [id number] Univers 14:30:00 15:37:33 Visit Mateo Husain 350.1.13.[address] [facility] [facility] 4.2.7.2.686 [place] [facility] [phone] [place] dical NAL 179 Branch BUILDING 2021-09-18 2021-09-18 Outpatient X [facility] [id number] Univers 15:23:00 15:23:00 GUS villar [facility] 2021-09-11 2021-09-11 Telephone [facility] 1.2.590.816 [id number] Univers 00:00:00 00:00:00 Barrington HEALTH 350.1.13.10 it y of [place] 4.2.7.2.686 Jefry as ANTHONY?BLEA [phone] [address] MEDICAL OFFICE [facility] 2021-09-06 2021-09-06 Outpatient R RIVKA [facility] [id number] Univers 14:30:00 14:30:00 RAZMILTON villar [facility] 2021-09-06 2021-09-06 [facility] [id number] Univers 10:30:00 10:47:57 RAZ ity [facility] 2021-09-06 2021-09-06 Office [facility] 1.2.840.114 [id number] Univers 10:30:00 10:47:57 Visit Raz HEALTH 350.1.13.10 it y of [place] 4.2.7.2.686 Jefry as ANTHONY?BLEA [id number] [address] OFFICE [facility] 2021-09-03 2021-09-03 Outpatient R SAMUEL [facility] [id number] Univers 18:40:00 18:41:06 RISSA itjose manuel [facility] 2021-09-03 2021-09-03 Anne Baker [facility] 1.2.840.114 [id number] Univers 18:40:00 18:41:06 Care Rissa HEALTH 350.1.13.10 it y of [place] 4.2.7.2.686 Jefry as ANTHONY?BLEA [id number] [facility] [address] MEDICAL OFFICE [facility] 2021-08-27 2021-08-27 Refill Rivka [facility] 1.2.840.114 [id number] Univers 00:00:00 00:00:00 Raz HEALTH 350.1.13.10 it y of [place] 4.2.7.2.686 Jefry as ANTHONY?BLEA [id number] [address] MEDICAL OFFICE [facility] 2021-08-23 2021-08-23 Refill Doctor [facility] 1.2.840.114 [id number] Univers 00:00:00 00:00:00 Unassigned, HEALTH 350.1.13.10 ity of [place] 4.2.7.2.686 Jefry as ANTHONY?BLEA [phone] Ky dical MERCEDES 044 [facility] OFFICE [facility] 2021-08-21 2021-08-21 [facility] 1.2.840.114 [id number] Univers 00:00:00 00:00:00 Wondiful A HEALTH 350.1.13.10 ity of [place] 4.2.7.2.686 Jefry as ANTHONY?BLEA [id number] [place] dical MERCEDES [address] [place] [address] 2021-08-21 2021-08-21 Telephone [facility] 1.2.064.436 [id number] 0205 Univers 00:00:00 00:00:00 Raz HEALTH 350.1.13.10 it y of [place] 4.2.7.2.686 Jefry as NATHONY?BLEA [id number] [place] dical MERCEDES [address] [place] [address] 2021-08-15 2021-08-15 Refill [facility] 1.2.840.114 [id number] Univers 00:00:00 00:00:00 Raz HEALTH 350.1.13.10 it y of [place] 4.2.7.2.686 Jefry as ANTHONY?BLEA [id number] [place] dicethan LONG [address] [place] [address] 2021-08-15 2021-08-15 Telephone [facility] 1.2.021.788 [id number] Univers 00:00:00 00:00:00 Rena ALEJANDROTON 350.1.13.10 i ty of [place] 4.2.7.2.686 [place] [phone] [place] dicethan NAL 085 [facility] 2021-08-14 2021-08-14 Telephone [facility] 1.2.037.304 [id number] 0137 Univers 00:00:00 00:00:00 Raz HEALTH 350.1.13.10 it y of [place] 4.2.7.2.686 Jefry as ANTHONY?BLEA [phone] Ky dical MERCEDES 044 [facility] 2021-08-06 2021-08-06 Salvage Repairer Lab, Ang - Wolf [facility] 1.2.840.1 14 [id number] Univers 15:00:00 15:15:00 Visit Raz Tineo 350.1.13.10 ity [facility] 4.2.7.2.686 Jefry as ANTHONY?BLEA [id number] Ky agustin LONG 353 [facility] OFFICE [facility] 2021-08-06 2021-08-06 Outpatient [facility] [id number] Univers 15:00:00 15:00:00 RAZ itjose manuel [facility] 2021-08-06 2021-08-06 Outpatient [facility] [id number] Univers 15:00:00 15:00:00 RAZ villar [facility] 2021-08-06 2021-08-06 Office [facility] 1.2.840.114 [id number] Univers 14:30:00 14:39:14 Visit Raz [facility] 350.1.13.10 it y of [facility] 4.2.7.2.686 Jefry as ANTHONY?BLEA [phone] [place] [address] OFFICE [facility] 2021-08-06 2021-08-06 Outpatient R [facility] [id number] Univers 14:30:00 14:30:00 RAZ villar [facility] 2021-08-03 2021-08-03 Telephone [facility] 1.2.266.535 [id number] Univers 00:00:00 00:00:00 Raz HEALTH 350.1.13.10 it y of [facility] 4.2.7.2.686 Jefry as ANTHONY?BLEA [id number] Ky agustin LONG 044 [facility] OFFICE [facility] 2021-08-02 2021-08-02 Telephone [facility] 1.2.702.664 [id number] Univers 00:00:00 00:00:00 Katie [place] 350.1.13.[address] [facility] 4.2.7.2.[place] [phone] [place] agustin TEIXEIRA 059 [facility] 2021-08-02 2021-08-02 Telephone [facility] 1.2.025.790 [id number] Univers 00:00:00 00:00:00 Sendil [facility] [place] 350.1.13.[address] [facility] 4.2.7.2.[place] PROF[place] [phone] [place] dical NAL 059 Branch BUILDING 2021-07-31 2021-07-31 [facility] 1.2.840.114 [id number] Univers 00:00:00 00:00:00 Wondiful A HEALTH 350.1.13.10 ity of [place] 4.2.7.2.686 Jefry as ANTHONY?BLEA [id number] [place] dicethan KNEY [address] MEDICAL OFFICE BUILDING 2021-07-26 2021-07-26 [facility] 1.2.840.114 [id number] Univers 08:11:16 23:59:00 Encounter Katie LEACH 350.1.13.10 ity of [place].2.7.2.[place] [phone] [facility] 805 Branch 2021-07-26 2021-07-26 Office [facility] 1.2.840.114 [id number] Univers 14:30:00 14:58:46 Visit Colin ALVARADOPEC 350.1.13.10 ity of [place].2.7.2.[place] C[place] [id number] [address] [facility] 2021-07-26 2021-07-26 Outpatient [facility] [id number] Univers 14:30:00 14:58:46 COLIN villar [facility] 2021-07-26 2021-07-26 Office [facility]PRES[facility]TER[facility] 1.2.840.114 [id number] Univers 14:30:00 14:45:00 Visit Colin ALVARADOPEC 350.1.13.10 ity of [place] 4.2.7.2.686 [place] [facility] [phone] [address] [facility] 2021-07-26 2021-07-26 Outpatient [facility] [id number] Univers 14:30:00 14:30:00 COLIN villar [facility] 2021-07-26 2021-07-26 Outpatient R JORDEN [facility] [id number] Univers 14:30:00 14:30:00 COLIN ity [facility] 2021-07-26 2021-07-26 Outpatient [facility] [id number] Univers 11:00:00 11:00:00 SENDIL ity [facility] 2021-07-26 2021-07-26 [facility] 1.2.840.114 [id number] Univers 08:10:34 08:10:34 Encounter Katie LEACH 350.1.13.10 ity of [place] 4.2.7.2.686 [facility] [id number] [address] 2021-07-26 2021-07-26 [facility] 1.2.840.114 [id number] Univers 08:09:52 08:09:52 Encounter Katie LEACH 350.1.13.[address] [facility] 4.2.7.2.686 [facility] [id number] [address] 2021-07-26 2021-07-26 Outpatient [facility] [id number] Univers 08:09:07 08:09:07 SENDIL ity [facility] 2021-07-26 2021-07-26 [facility] 1.2.840.114 [id number] Univers 08:09:07 08:09:07 Encounter Katie LEACH 350.1.13.10 ity of [place] 4.2.7.2.686 [facility] [id number] [address] 2021-07-26 2021-07-26 Outpatient [facility] [id number] Univers 00:00:00 00:00:00 SENDIL ity [facility] 2021-07-26 2021-07-26 Outpatient [facility] [id number] Univers 00:00:00 00:00:00 SENDIL ity [facility] 2021-07-26 2021-07-26 Orders Doctor QIU 1.2.840.114 [id number] Univers 00:00:00 00:00:00 Only Unassigned, FLASH 350.1.13.10 ity of [place] HOSPITAL 4.2.7.2.686 Jefry as [id number] [address] 2021-07-26 2021-07-26 Orders Doctor UYEN 1.2.840.114 [id number] Univers 00:00:00 00:00:00 Only Unassigned, FLASH 350.1.13.10 ity of [place] HOSPITAL 4.2.7.2.686 Jefry as [id number] [address] 2021-07-24 2021-07-24 Abelardo ValenciaPRESBYTERIAN [facility] 1.2.840.114 [id number] Univers 00:00:00 00:00:00 Wondiful A HEALTH 350.1.13.10 ity of [place] 4.2.7.2.686 Jefry as PROFESSIO [id number] [address] OFFICE BUILDING ONE 2021-07-13 2021-07-13 Abelardo ValenciaPRESBYTER[facility] 1.2.840.114 [id number] Univers 00:00:00 00:00:00 Wondiful A HEALTH 350.1.13.10 ity of [place] 4.2.7.2.686 Jefry as ANTHONY?BLEA [id number] [facility] [address] MEDICAL OFFICE BUILDING 2021-07-13 2021-07-13 Orders Doctor UYEN 1.2.840.114 [id number] Univers 00:00:00 00:00:00 Only Unassigned, FLASH 350.1.13.10 ity of [place] HOSPITAL 4.2.7.2.686 Jefry as [id number] [address] 2021-07-09 2021-07-09 Outpatient R ANNIE [facility] [id number] Univers 13:30:00 13:30:00 WONDIFUL ity o f [facility] 2021-07-06 2021-07-06 Abelardo Valencia [facility] 1.2.840.114 [id number] Univers 00:00:00 00:00:00 Wondiful A HEALTH 350.1.13.10 ity of [place] 4.2.7.2.686 Jefry as PROFESSIO [id number] [place] agustin TEIXEIRA 044 [facility] ONE 2021-07-03 2021-07-03 Salvage Repairer Lab, Ang - Db [facility] 1.2.840.1 14 [id number] Univers 15:30:00 15:45:00 Visit Venkata Valenciajefferson A HEALTH 350.1.13.1 0 ity of [place] 4.2.7.2.686 Jefry as ANTHONY?BLEA [phone] [place] agustin LONG 353 [facility] OFFICE [facility] 2021-07-03 2021-07-03 Outpatient R ANNIE [facility] [id number] Univers 15:30:00 15:30:00 WONDIFUL ity o f [facility] 2021-07-03 2021-07-03 Office [facility] 1.2.840.114 [id number] Univers 15:00:00 15:27:47 Visit Wondiful A HEALTH 350.1.13.10 ity of [place] 4.2.7.2.686 Jefry as ANTHONY?BLEA [phone] Ky texethan LONG 044 [facility] OFFICE [facility] 2021-07-03 2021-07-03 Outpatient R ANNIE [facility] [id number] Univers 15:00:00 15:27:47 WONDIFUL ity o f [facility] 2021-06-21 2021-06-21 Outpatient R FEDE [facility] [id number] Univers 14:30:00 15:13:56 BRE ity of [facility] 2021-06-21 2021-06-21 Office [facility] 1.2.468.353 [id number] Univers 14:30:00 15:13:56 Visit Bre SPECIALTY 350.1.13.10 ity of A C[place] 4.2.7.2.686 [place] CENTER AT [phone] [place] texethan MENDEZ 198 [facility] 2021-06-21 2021-06-21 Outpatient R FEDE [facility] [id number] Univers 14:30:00 15:13:56 BRE ity of [facility] 2021-06-14 2021-06-14 Outpatient R RENA ROLLINS [facility] 10 [id number] Univers 14:00:00 14:39:55 RENA ROLLINS i ty of [facility] 2021-06-14 2021-06-14 Office [facility] 1.2.840.114 [id number] Univers 14:00:00 14:39:55 Visit Rena ALLENLOBTIO 350.1.13.10 i ty of [place] 4.2.7.2.[place] [id number] [place] agustin TEIXEIRA 085 [facility] 2021-06-14 2021-06-14 Outpatient R RENA ROLLINS [facility] 10 [id number] Univers 14:00:00 14:39:55 RENA ROLLINS i ty of [facility] 2021-06-14 2021-06-14 Outpatient R MERCEDEZ ROLLINSMETori [facility] 10 [id number] Univers 14:00:00 14:00:00 RENA ROLLINS i ty of [facility] 2021-06-11 2021-06-11 Outpatient R LISHA [facility] [id number] Univers 15:00:00 15:00:00 [facility] 2021-06-08 2021-06-08 Telephone [facility]PRES[facility] 1..196.831 [id number] Univers 00:00:00 00:00:00 Katie [place] 350.1.13.10 ity of [place] 4.2.7.2.[place] [id number] Ky dicethan NAL 059 [facility] 2021-06-06 2021-06-06 Refjacob ValenciaPRESBYTER[facility] 1.2.840.114 [id number] Univers 00:00:00 00:00:00 Wondiful A HEALTH 350.1.13.10 ity of [place] 4.2.7.2.686 Jefry as PROFESSIO [id number] [place] texal NAL [address] OFFICE BUILDING ONE 2021-05-31 2021-05-31 Felix ValenciaPRESBYTERIAN [facility] 1.2.840.114 [id number] Univers 00:00:00 00:00:00 Management Wondiful A HEALTH 350.1.13.10 ity of [place] 4.2.7.2.686 Jefry as ANTHONY?BLEA [phone] Me agustin LONG 044 [facility] OFFICE [facility] 2021-05-28 2021-05-28 Outpatient [facility] [id number] Univers 14:40:00 23:59:00 WONDIFUL ity o f [facility] 2021-05-28 2021-05-28 Hospital [facility]PRESBYTER[facility] 1.2.698.512 [id number] Univers 14:40:00 23:59:00 Encounter Wondiful A HEALTH 350.1.13.10 ity of [place] 4.2.7.2.686 Jefry as ANTHONY?BLEA [phone] [place] agustin LONG 809 [facility] OFFICE [facility] 2021-05-28 2021-05-28 Salvage Repairer Lab, [place] [facility] 1.2.840.1 14 [id number] Univers 15:00:00 15:15:00 Visit Rubi Valencia HEALTH 350.1.13.1 0 ity of [place] 4.2.7.2.686 Jefry as ANTHONY?BLEA [id number] [place] agustin DUVALLEY 353 [facility] OFFICE [facility] 2021-05-28 2021-05-[address] [facility] 1.2.840.114 [id number] Univers 14:00:00 14:58:29 Visit Wondiful A HEALTH 350.1.13.10 ity of [place] 4.2.7.2.686 Jefry as ANTHONY?BLEA [id number] Ky agustin LONG 044 [facility] OFFICE [facility] 2021-05-28 2021-05-28 Outpatient [facility] [id number] Univers 14:40:00 14:40:00 WONDIFUL ity o f [facility] 2021-05-22 2021-05-22 Telephone [facility] 1.2.690.666 [id number] Univers 00:00:00 00:00:00 Shiwan [place] 350.1.13.10 i ty of [place] 4.2.7.2.[place] [id number] Ky dical NAL 085 [facility] 2021-05-18 2021-05-18 Refill Annie [facility] 1.2.840.114 [id number] Univers 00:00:00 00:00:00 Wondiful A HEALTH 350.1.13.10 ity of [place] 4.2.7.2.686 Jefry as ANTHONY?BLEA [phone] [place] texethan LONG [address] MEDICAL OFFICE BUILDING 2021-05-16 2021-05-16 Office [facility]doPRES[facility]TER[facility] 1.2.497.126 [id number] Univers 15:00:00 15:20:[address] [facility] Raciel LEACH 350.1.13.10 ity of [place] 4.2.7.2.686 [place] [facility] [id number] [place] texethan [facility] 085 [facility] 2021-05-16 2021-05-16 Outpatient R BALDO [facility] [id number] Univers 15:00:00 15:00:[address] [facility] 2021-05-16 2021-05-16 Outpatient R BALDO [facility] [id number] Univers 15:00:00 15:00:[address] [facility] 2021-05-04 2021-05-04 Salvage Repairer Therapist, [facility] Respiratory [facility] 1.2.840.114 [id number] Univers 12:30:00 14:00:00 Visit Floyd [facility] 350.1.13. 10 ity of [place] 4.2.7.2.686 [place] [id number] [address] 2021-05-04 2021-05-04 Outpatient R MICKEY [facility] [id number] Univers 12:30:00 12:30:00 FLOYD [facility] 2021-05-04 2021-05-04 Orders BLAKE Rollins 1.2.169.324 [id number] Univers 00:00:00 00:00:00 Only Shiwan Y HEALTH 350.1.13.10 i ty of [facility] [facility] 4.2.7.2.686 [place] [id number] [place] 7[address]74 [address] 2021-05-03 2021-05-03 Telephone Annie RIMB 1.2.840.114 [id number] Univers 00:00:00 00:00:00 Wondiful A HEALTH 350.1.13.10 ity of [place] 4.2.7.2.686 Jefry as ANTHONY?BLEA [id number] [facility] [address] MEDICAL OFFICE [facility] 2021-05-02 2021-05-02 Case [facility]PRES[facility] 1.2.840.114 [id number] Univers 00:00:00 00:00:00 Management Wondiful A HEALTH 350.1.13.10 ity of [place] 4.2.7.2.686 Jefry as ANTHONY?BLEA [id number] [facility] 044 [facility] OFFICE [facility] 2021-05-01 2021-05-01 Telephone CleoUYEN 1.2.300.708 [id number] Univers 00:00:00 00:00:00 Bárbara FLASH 350.1.13.10 it y of [facility] 4.2.7.2.686 Jefry as [id number] [address] 2021-05-01 2021-05-01 Telephone [facility]PRES[facility] 1.2.007.846 [id number] Univers 00:00:00 00:00:00 Katie [place] 350.1.13.10 ity of [place] 4.2.7.2.[place] [phone] [facility] 059 [facility] 2021-04-30 2021-04-30 Laboratory Only, Ang Db Test [facility] 1.2.8 40.114 [id number] Univers 16:15:00 16:30:00 Only Tesfaye Herrera HEALTH 350.1.13.10 ity of [facility] 4.2.7.2.686 Jefry as ANTHONY?BLEA [id number] [facility] 370 [facility] OFFICE [facility] 2021-04-30 2021-04-30 Outpatient R JIL [facility] [id number] Univers 16:15:00 16:15:00 OMAYEMI ity of [facility] 2021-04-23 2021-04-23 Salvage Repairer Lab, Ang - Db [facility] 1.2.840.1 14 [id number] Univers 10:00:00 10:15:00 Visit Rubi Valencia A HEALTH 350.1.13.1 0 ity of [place] 4.2.7.2.686 Jefry as ANTHONY?BLEA [id number] [facility] 353 [facility] OFFICE [facility] 2021-04-23 2021-04-23 Outpatient R ANNIE [facility] [id number] Univers 10:00:00 10:00:00 WONDIFUL ity o f [facility] 2021-04-19 2021-04-19 [facility] 1.2.840.114 [id number] Univers 14:23:58 23:59:00 Encounter Katie LEACH 350.1.13.[address] [facility] 4.2.7.2.[place] [id number] [facility] NAL 843 [facility] 2021-04-19 2021-04-19 [facility] 1.2.840.114 [id number] Univers 16:40:00 17:00:00 Care Rania HEALTH 350.1.13.10 it y of [place] 4.2.7.2.686 Jefry as ANTHONY?BLEA [id number] [facility] 370 [facility] OFFICE [facility] 2021-04-19 2021-04-19 Outpatient R RENA ROLLINS [facility] 10 [id number] Univers 13:30:00 14:23:11 RENA ROLLINS i ty of [facility] 2021-04-19 2021-04-19 Office [facility]PRES[facility] 1.2.840.114 [id number] Univers 13:30:00 14:23:11 Visit Rena LEACH 350.1.13.10 i ty of [place] 4.2.7.2.[place] [id number] Ky dical NAL 085 [facility] 2021-04-19 2021-04-19 Outpatient R RENA ROLLINS [facility] 10 [id number] Univers 13:30:00 14:23:11 RENA ROLLINS i ty of [facility] 2021-04-13 2021-04-13 Refjacob [facility]PRES[facility] 1.2.840.114 [id number] Univers 00:00:00 00:00:00 Wondiful A HEALTH 350.1.13.10 ity of [place] 4.2.7.2.686 Jefry as PROFESSIO [id number] [address] ONE 2021-04-12 2021-04-12 Laboratory Only, Ang Db Test [facility] 1.2.8 40.114 [id number] Univers 17:30:00 17:45:00 Only Asaf Esposito HEALTH 350.1.13.10 ity of [place] 4.2.7.2.686 Jefry as ANTHONY?BLEA [id number] [facility] 370 [facility] OFFICE [facility] 2021-04-12 2021-04-12 Outpatient R KAYLEIGH [facility] [id number] Univers 17:30:00 17:30:00 ASAF ity of [facility] 2021-04-10 2021-04-10 [facility] 1.2.840.114 [id number] Univers 00:00:00 00:00:00 Wondiful A HEALTH 350.1.13.10 ity of [place] 4.2.7.2.686 Jefry as PROFESSIO [phone] [address] ONE 2021-04-05 2021-04-05 Outpatient R RENA ROLLINS [facility] 10 [id number] Univers 11:00:00 11:00:00 RENA ROLLINS i ty of [facility] 2021-04-03 2021-04-03 Felix Valencia [facility] 1.2.840.114 [id number] Univers 00:00:00 00:00:00 Management Wondiful A HEALTH 350.1.13.10 ity of [place] 4.2.7.2.686 Jefry as ANTHONY?BLEA [phone] [address] OFFICE [facility] 2021-04-03 2021-04-03 Telephone Michael [facility] [id number] Univers 00:00:00 00:00:00 Rena [place] 350.1.13.10 i ty [place] [phone] [place] agustin TEIXEIRA 085 [facility] 2021-04-02 2021-04-02 Outpatient R ANNIE, [facility] [id number] Univers 17:05:00 23:59:00 WONDIFUL ity o f [facility] 2021-04-02 2021-04-02 [facility] [id number] Univers 17:05:00 23:59:00 Encounter Wondiful A HEALTH 350.1.13.10 ity of [place] 4.2.7.2.686 Jefry as ANTHONY?BLEA [phone] [place] agustin LONG 8[address] [facility] OFFICE [facility] 2021-04-02 2021-04-02 Office [facility] 1.2.840.114 [id number] Univers 16:15:00 17:18:41 Visit Wondiful A [facility] 350.1.13.10 [facility] 4.2.7.2.686 Jefry as ANTHONY?BLEA [phone] [place] texny MERCEDES 044 [facility] OFFICE [facility] 2021-04-02 2021-04-02 Outpatient R ANNIE [facility] [id number] Univers 16:15:00 17:18:41 WONDIFUL ity o f [facility] 2021-03-26 2021-03-26 [facility] [id number] Univers 16:10:00 16:10:00 WONDIFUL ity o f [facility] 2021-03-26 2021-03-26 Imm/Inj Vaccine, Ang Db Cbc [facility] 1. 2.840.114 [id number] Univers 15:16:44 15:26:44 Visit Rubi Valencia HEALTH 350.1.13.1 0 ity of [place] 4.2.7.2.686 Jefry as ANTHONY?BLEA [phone] [place] agustin LONG 044 [facility] OFFICE [facility] 2021-03-22 2021-03-22 Telephone [facility] [id number] Univers 00:00:00 00:00:00 Shiwan [place] 350.1.13.10 i ty [place] [id number] [place] dical NAL 085 [facility] 2021-03-20 2021-03-20 Patient Riley [facility] 1.2.840.114 [id number] Univers 00:00:00 00:00:00 Secure Msg Sendeugene ALLENLOBITO 350.1.13.[address] [facility] 4.[place] [phone] [place] dicny NAL 059 [facility] 2021-03-01 2021-03-01 Refill [facility] 1.2.840.114 [id number] Univers 00:00:00 00:00:00 WonGlass & Marker A [facility] 350.1.13.10 ity of [place] 4.2.7.2.686 Jefry as PROFESSIO [phone] [facility] [address] OFFICE [facility] ONE 2021-02-22 2021-02-22 Outpatient R RILEY [facility] [id number] Univers 15:00:00 15:12:20 SENDIL ity of [facility] 2021-02-22 2021-02-22 Office [facility] 1.2.840.114 [id number] Univers 14:38:36 15:12:20 Visit Katie DanaeJesusChinoJesus LEACH 350.1.13.[address] [facility] 4.2.7.2.[place] [phone] [facility] NAL 059 [facility] 2021-02-22 2021-02-22 Office Michael [facility] 1.2.840.114 [id number] Univers 13:51:57 14:21:57 Visit Rena LEACH 350.1.13.10 i ty [address] [facility] 4.2.7.2.686 [place] [phone] [place] dicny NAL 085 [facility] 2021-02-22 2021-02-22 Outpatient R RENA ROLLINS [facility] 10 [id number] Univers 14:00:00 14:00:00 RENA ROLLINS i ty of [facility] 2021-02-14 2021-02-14 Office Baldo RIMB 1.2.498.790 [id number] Univers 16:11:31 16:31:31 Visit Kailey Schrader [place] 350.1.13.10 ity of [place] 4.2.7.2.686 [place] xavi DARIOCECILIA [phone] [place] agustin Lynn5 [facility] 2021-02-14 2021-02-14 Outpatient R KAILEY BLAND [facility] [id number] Univers 16:00:00 16:00:00 KAILEY BLAND ity of [facility] 2021-02-14 2021-02-14 [facility] 1.2.840.114 [id number] Univers 00:00:00 00:00:00 Wondiful A HEALTH 350.1.13.10 ity of [place] 4.2.7.2.686 Jefry as ANTHONY?BLEA [id number] [address] OFFICE [facility] 2021-02-13 2021-02-13 Refill [facility] 1.2.840.114 [id number] Univers 00:00:00 00:00:00 Wondiful A HEALTH 350.1.13.10 ity of [place] 4.2.7.2.686 Jefry as ANTHONY?BLEA [phone] [address] OFFICE [facility] 2021-02-13 2021-02-13 Telephone [facility] 1.2.840.114 [id number] Univers 00:00:00 00:00:00 Wondiful A HEALTH 350.1.13.10 ity of [place] 4.2.7.2.686 Jefry as ANTHONY?BLEA [phone] [address] OFFICE [facility] 2021-02-12 2021-02-[address] [facility] 1.2.840.114 [id number] Univers 00:00:00 00:00:00 Wondiful A HEALTH 350.1.13.10 ity of [place] 4.2.7.2.686 Jefry as ANTHONY?BLEA [phone] [address] OFFICE [facility] 2021-02-12 2021-02-12 Orders Doctor UYEN 1.2.840.114 [id number] Univers 00:00:00 00:00:00 Only Unassigned, FLASH 350.1.13.10 ity of [place] [facility] 4.2.7.2.686 Jefry as [phone] [address] 2021-02-07 2021-02-07 Outpatient R SERINA [facility] [id number] Univers 14:00:00 14:00:00 EUGENIE ity of [facility] 2021-01-17 2021-01-17 Case [facility] 1.2.840.114 [id number] Univers 00:00:00 00:00:00 Management Wondiful A Health 350.1.13.10 ity of [place] 4.2.7.2.686 Jefry as Anthony?Blea [phone] [address] Medical Office [facility] 2021-01-12 2021-01-12 Salvage Repairer Lab, [facility] 1.2.840.1 14 [id number] Univers 16:41:01 16:50:21 Visit Rubi Valencia A Health 350.1.13.1 0 ity of [place] 4.2.7.2.686 Jefry as Anthony?Blea [phone] [facility] [address] Medical Office [facility] 2021-01-12 2021-01-12 Office Annie [facility] 1.2.840.114 [id number] Univers 15:47:11 16:41:07 Visit Wondiful A Health 350.1.13.10 ity of [place] 4.2.7.2.686 Jefry as Anthony?Blea [phone] [facility] [address] Medical Office [facility] 2021-01-12 2021-01-12 Outpatient R ANNIE [facility] [id number] Univers 15:45:00 15:45:00 WONDIFUL ity o f [facility] 2021-01-12 2021-01-12 Telephone Annie [facility] 1.2.840.114 [id number] Univers 00:00:00 00:00:00 Wondiful A Health 350.1.13.10 ity of [place] 4.2.7.2.686 Jefry as Anthony?Blea [phone] [place] dical knchiquita [address] Medical Office Building 2021-01-04 2021-01-04 Office [facility] 1.2.840.114 [id number] Univers 14:22:18 15:13:46 Visit Rena [place] 350.1.13.10 i ty of [place] 4.2.7.2.686 [place] [facility] [phone] [place] dical nal 085 [facility] 2021-01-04 2021-01-04 Office Annie [facility] 1.2.840.114 [id number] Univers 10:55:41 11:54:08 Visit [facility] 350.1.13.10 ity of [place] 4.2.7.2.686 Jefry as Anthony?Blea [phone] [place] dicethan long 044 [facility] Office [facility] 2021-01-04 2021-01-04 Outpatient Bryan VALENCIA [facility] [id number] Univers 11:00:00 11:00:00 WONDIFUL ity o f [facility] 2021-01-01 2021-01-01 [facility] 1.2.840.114 [id number] Univers 12:28:10 23:59:00 Encounter Herb [place] 350.1.13.10 ity of [place] 4.2.7.2.686 [place] Wayan [phone] [facility] [address] 2021-01-01 2021-01-01 Outpatient Bryna COREY [facility] [id number] Univers 00:00:00 00:00:00 HERB villar [facility] 2020-12-27 2020-12-27 Outpatient LEORA [facility] [id number] Univers 09:00:00 09:00:00 HERB villar [facility] 2020-12-26 2020-12-26 Outpatient Bryan VALENCIA [facility] [id number] Univers 11:00:00 11:00:00 WONDIFUL ity o f [facility] 2020-12-22 2020-12-23 Emergency Rachael [facility] 1.2.840.114 [id number] Univers 17:37:00 00:24:00 Charles Leach 350.1.13.10 ity of [place] 4.2.7.2.686 [place] Wayan [phone] [facility] [address] 2020-12-22 2020-12-22 Letter UYEN Loomis 1.2.840.114 [id number] Univers 00:00:00 00:00:00 (Out) Leticiaisis VIDALES 350.1.13.10 it y of HOSPITAL 4.2.7.2.686 Jefry as [phone] [facility] 019 Branch 2020-12-22 2020-12-22 Orders Doctor QIU 1.2.840.114 [id number] Univers 00:00:00 00:00:00 Only Unassigned, FLASH 350.1.13.10 ity of [place] [facility] 4.2.7.2.686 Jefry as [phone] [facility] [address] 2020-12-21 2020-12-21 Laboratory Only, Ang Db Test [facility] 1.2.8 40.114 [id number] Univers 11:05:53 11:15:53 Only Mildred, [facility] [employer] 350.1.13.10 ity of [place] 4.2.7.2.686 Jefry as Anthony?Blea [phone] [place] tex[address] Medical Office Building 2020-12-21 2020-12-21 Outpatient R [facility] [id number] Univers 11:00:00 11:00:00 ity of [facility] 2020-12-19 2020-12-19 Nurse Therapy, Adc Covid Infusion [facility] 1.2.840.114 [id number] Univers 15:00:21 16:00:21 Visit Pal Cortes 350.1.13.10 ity of [place] 4.2.7.2.686 [place] Surgical [phone] [facility] [address] 2020-12-19 2020-12-19 Outpatient R [facility] [id number] Univers 15:00:00 15:00:00 ity of [facility] 2020-12-19 2020-12-19 Orders Doctor QIU 1.2.840.114 [id number] Univers 00:00:00 00:00:00 Only Unassigned, FLASH 350.1.13.10 ity of [place] HOSPITAL 4.2.7.2.686 Jefry as [phone] [address] 2020-12-15 2020-12-15 [facility]ill [facility] 1.2.840.114 [id number] Univers 00:00:00 00:00:00 Wondiful A Health 350.1.13.10 ity of [place] 4.2.7.2.686 Jefry as Anthony?Blea [phone] [address] Medical Office [facility] 2020-12-15 2020-12-15 [facility] 1.2.840.114 [id number] Univers 00:00:00 00:00:00 Wondiful A Health 350.1.13.10 ity of [place] 4.2.7.2.686 Jefry as Anthony?Blea [phone] [address] Medical Office [facility] 2020-12-15 2020-12-15 Refill [facility] 1.2.840.114 [id number] Univers 00:00:00 00:00:00 Wondiful A Health 350.1.13.10 ity of [place] 4.2.7.2.686 Jefry as Anthony?Blea [phone] [address] Office [facility] 2020-12-14 2020-12-[address] [facility] 1.2.840.114 [id number] Univers 00:00:00 00:00:00 Secure Msg Wondiful A Health 350.1.13.10 ity of [place] 4.2.7.2.686 Jefry as Anthony?Blea [phone] [address] Office [facility] 2020-12-13 2020-12-[address] [facility] 1.2.840.114 [id number] Univers 00:00:00 00:00:00 Wondiful A Health 350.1.13.10 ity of [place] 4.2.7.2.686 Jefry as Anthony?Blea [phone] [address] Medical Office [facility] 2020-12-12 2020-12-12 Letter UYEN Lino 1.2.840.114 [id number] Univers 00:00:00 00:00:00 (Out) Mark VIDALES 350.1.13.10 i ty of [facility] 4.2.7.2.686 Jefry as [phone] [facility] [address] 2020-12-11 2020-12-11 Laboratory Only, Ang Db Test [facility] 1.2.8 40.114 [id number] Univers 14:46:30 14:56:30 Only Samuel Rissa Health 350.1.13.10 ity of [place] 4.2.7.2.686 Jefry as Anthony?Blea [phone] [facility] 370 [facility] Office [facility] 2020-12-11 2020-12-11 Outpatient R SAMUEL [facility] [id number] Univers 14:45:00 14:45:00 RISSA itjose manuel [facility] 2020-12-08 2020-12-08 Emergency Leo [facility] 1.2.234.519 [id number] Univers 18:59:00 22:56:00 Yonathan Leach 350.1.13.10 i ty of [place] 4.2.7.2.686 [place] [facility] [phone] [place] 7[address]74 [place] 2020-12-08 2020-12-08 Telephone Annie [facility] 1.2.840.114 [id number] Univers 00:00:00 00:00:00 Wondiful A Health 350.1.13.10 ity of [place] 4.2.7.2.686 Jefry as Anthony?Blea [phone] [address] Medical Office [facility] 2020-11-28 2020-11-28 Outpatient R ANNIE [facility] [id number] Univers 16:15:00 16:15:00 WONDIFUL ity o f [facility] 2020-11-17 2020-11-17 Telephone [facility] 1.2.840.114 [id number] Univers 00:00:00 00:00:00 Wondiful A Health 350.1.13.10 ity of [place] 4.2.7.2.686 Jefry as Professio [phone] [address] Office [facility] One 2020-11-16 2020-11-16 Laboratory Lab, [facility] I [facility] 1.2. 840.114 [id number] Univers 17:08:41 17:28:41 Only Asaf Esposito Health 350.1.13.10 ity of [place] 4.2.7.2.686 Jefry as Professio [phone] [address] One 2020-11-16 2020-11-16 Outpatient R KAYLEIGH [facility] [id number] Univers 17:00:00 17:00:00 ASAF ity [facility] 2020-11-01 2020-11-01 Office [facility] 1.2.840.114 [id number] Univers 13:42:49 14:32:22 Visit Eugenie [facility] 350.1.13.10 ity of [place] 4.2.7.2.686 [place] [facility] [phone] [address] [facility] 2020-11-01 2020-11-01 Outpatient R SERINA [facility] [id number] Univers 13:40:00 13:40:00 EUGENIE itjose manuel [facility] 2020-10-25 2020-10-25 Case [facility] 1.2.840.114 [id number] Univers 00:00:00 00:00:00 Management Wondiful A Health 350.1.13.10 ity of [place] 4.2.7.2.686 Jefry as Professio [phone] [address] Office [facility] One 2020-10-20 2020-10-20 Telephone Annie [facility] 1.2.840.114 [id number] Univers 00:00:00 00:00:00 Wondiful A Health 350.1.13.10 ity of [place] 4.2.7.2.686 Jefry as Professio [id number] [address] Office Building One 2020-10-19 2020-10-19 Salvage Repairer Lab, [facility] Po I [facility] 1.2. 840.114 [id number] Univers 14:41:14 14:53:42 Visit Rubi Valencia [facility] 350.1.13.1 0 ity of [place] 4.2.7.2.686 Jefry as Professio [phone] [address] One 2020-10-19 2020-10-19 Office [facility] 1.2.840.114 [id number] Univers 14:03:53 14:40:20 Visit Woninezful A Health 350.1.13.10 ity of [place] 4.2.7.2.686 Jefry as Professio [id number] [address] One 2020-10-19 2020-10-19 Outpatient R ANNIE [facility] [id number] Univers 14:00:00 14:00:00 WONDIFUL ity o f [facility] 2020-10-13 2020-10-13 [facility] [id number] Univers 00:00:00 00:00:00 ROXY ity of [facility] 2020-10-12 2020-10-12 [facility] 1.2.840.114 [id number] Univers 13:00:00 23:59:00 Encounter Roxy May Haylee 350.1.13.10 ity of [place] 4.2.7.2.686 [place] [facility] [phone] [address] 2020-10-12 2020-10-12 Outpatient R IDRIS [facility] [id number] Univers 00:00:00 00:00:00 ROXY ity of [facility] 2020-10-12 2020-10-12 Refill [facility] 1.2.840.114 [id number] Univers 00:00:00 00:00:00 Wondiful A Health 350.1.13.10 ity of [place] 4.2.7.2.686 Jefry as Professio [id number] [address] One 2020-10-09 2020-10-09 Orders Doctor QIU 1.2.840.114 [id number] Univers 00:00:00 00:00:00 Only Unassigned, FLASH 350.1.13.10 ity of [place] HOSPITAL 4.2.7.2.686 Jefry as [phone] [address] 2020-09-14 2020-09-14 Documentat Gregory Pollock 1.2.840.1 [id number] Methodi 00:00:00 00:00:[address] 3.430.2.7 Hospit a .3.275205 l .8 2020-09-05 2020-09-05 Pre Visit Annie RISTEPHY 1.2.840.114 [id number] Univers 00:00:00 00:00:00 Outreach Wondiful A Health 350.1.13.10 ity of [place] 4.2.7.2.686 Jefry as Professio [phone] [address] Office [facility] One 2020-09-01 2020-09-01 Orders Doctor UYEN 1.2.840.114 [id number] Univers 00:00:00 00:00:00 Only Unassigned, FLASH 350.1.13.10 ity of [place] HOSPITAL 4.2.7.2.686 Jefry as [phone] [address] 2020-08-25 2020-08-25 Refill Annie [facility] 1.2.840.114 [id number] Univers 00:00:00 00:00:00 Wondiful A Health 350.1.13.10 ity of [place] 4.2.7.2.686 Jefry as Professio [phone] [address] Office [facility] One 2020-08-24 2020-08-24 Office Annie [facility] 1.2.840.114 [id number] Univers 15:20:35 16:43:28 Visit Wondiful A Health 350.1.13.10 ity of [place] 4.2.7.2.686 Jefry as Professio [phone] [address] Office [facility] One 2020-08-24 2020-08-24 Outpatient R ANNIE [facility] [id number] Univers 15:00:00 15:00:00 WONDIFUL ity o f [facility] 2020-08-21 2020-08-21 Orders Doctor UYEN 1.2.840.114 [id number] Univers 00:00:00 00:00:00 Only Unassigned, FLASH 350.1.13.10 ity of [place] [facility] 4.2.7.2.686 Jefry as [phone] [address] 2020-08-10 2020-08-10 Telephone [facility] 1.2.840.114 [id number] Univers 00:00:00 00:00:00 Wondiful A Health 350.1.13.10 ity of [place] 4.2.7.2.686 Jefry as Professio [phone] [address] Office Building One 2020-08-10 2020-08-10 Telephone [facility] 1.2.840.114 [id number] 00:00:00 00:00:00 Wondiful A Health 350.1.13.10 [place] 4.2.7.2.686 Professio [phone] [place] [address] Office Building One 2020-08-09 2020-08-09 [facility] 1.2.840.114 [id number] Univers 00:00:00 00:00:00 Wondiful A Health 350.1.13.10 ity of [place] 4.2.7.2.686 Jefry as Professio [phone] [address] Office Building One 2020-08-09 2020-08-09 [facility] 1.2.840.114 [id number] Univers 00:00:00 00:00:00 Wondiful A Health 350.1.13.10 ity of [place] 4.2.7.2.686 Jefry as Professio [phone] [address] Office Building One 2020-08-09 2020-08-09 Refjacob [facility]PRES[facility] 1.2.840.114 [id number] 00:00:00 00:00:00 Wondiful A Health 350.1.13.10 [place] 4.2.7.2.686 Professio [phone] [place] [address] Office Building One 2020-08-09 2020-08-09 Refill [facility] 1.2.840.114 [id number] 00:00:00 00:00:00 Wondiful A Health 350.1.13.10 [place] 4.2.7.2.686 Professio [phone] [place] [address] Office Building One 2020-07-27 2020-07-27 Salvage Repairer Lab, Adc Fam Pob I [facility] 1.2. 840.114 [id number] Univers 09:44:54 10:04:54 Visit My Tineothia Health 350.1.13.10 ity of [place] 4.2.7.2.686 Jefry as Professio [phone] [place] dic[address] Office Building One 2020-07-27 2020-07-27 Office Rivka [facility] 1.2.840.114 [id number] 09:07:34 09:44:01 Visit Raz Health 350.1.13.10 [place] 4.2.7.2.686 Professio [phone] [place] [address] Office Building One 2020-07-27 2020-07-27 Office [facility] 1.2.840.114 [id number] [facility] 09:07:34 09:44:01 Visit Raz Health 350.1.13.10 it y of [place] 4.2.7.2.686 Jefry as Professio [phone] [address] Office [facility] One 2020-07-27 2020-07-27 Outpatient R RIVKA [facility] [id number] Univers 09:00:00 09:00:00 RAZ ity of [facility] 2020-07-24 2020-07-24 Outpatient R ANNIE [facility] [id number] Univers 14:00:00 14:00:00 WONDIFUL ity o f [facility] 2020-07-21 2020-07-21 Outpatient R ANNIE [facility] [id number] Univers 15:45:00 15:45:00 WONDIFUL ity o f [facility] 2020-07-21 2020-07-21 Patient Annie [facility] 1.2.840.114 [id number] Univers 00:00:00 00:00:00 Secure Msg Wondiful A Health 350.1.13.10 ity of [place] 4.2.7.2.686 Jefry as Professio [phone] [address] One 2020-07-20 2020-07-20 Outpatient [facility] [id number] Univers 11:15:00 11:15:00 WONDIFUL ity o f [facility] 2020-06-27 2020-06-27 Outpatient R ANNIE [facility] [id number] Univers 08:00:00 08:00:00 WONDIFUL ity o f [facility] 2020-06-14 2020-06-14 Outpatient R RADIOLOGY [facility] [id number] Univers 00:00:00 00:00:00 ity [facility] 2020-06-13 2020-06-13 Outpatient R MELISSA [facility] [id number] Univers 12:10:00 12:10:00 ALEXSANDER [facility] 2020-05-26 2020-05-26 Outpatient R ANNIE [facility] [id number] Univers 15:00:00 15:00:00 WONDIFUL ity o f [facility] 2020-05-23 2020-05-23 Outpatient [facility] [id number] Univers 14:15:00 14:15:00 ROXY [facility] 2020-05-22 2020-05-22 Telephone [facility] .2.840.114 [id number] Univers 00:00:00 00:00:00 Wondiful A Health 350.1.13.10 ity of [place] 4.2.7.2.686 Jefry as Professio [phone] [address] One 2020-05-16 2020-05-16 Outpatient R [facility] [id number] Univers 12:10:00 12:10:00 ALEXSANDER [facility] 2020-05-12 2020-05-12 Orders Doctor QIU 1.2.840.114 [id number] Univers 00:00:00 00:00:00 Only Unassigned, FLASH 350.1.13.10 ity of [place] HOSPITAL 4.2.7.2.686 Jefry as [phone] [facility] [address] 2020-05-11 2020-05-11 Telephone [facility] 1.2.840.114 [id number] Univers 00:00:00 00:00:00 Strahil T [place] 350.1.13.10 ity of [place] 4.2.7.2.686 [place] Profess[place] [phone] [place] dic[address] 2020-05-03 2020-05-03 Office [facility] 1.2.211.648 [id number] Univers 13:10:44 13:40:44 Visit Strahil T [place] 350.1.13.10 ity of [place] 4.2.7.2.686 [place] Professio [phone] [address] 2020-05-03 2020-05-03 Outpatient R BALDO STRAHIL [facility] [id number] Univers 13:30:00 13:30:00 ATANASCAMPOS BARRETTL ity of [facility] 2020-05-02 2020-05-02 Hospital Radiology [facility] 1.2.840.114 [id number] Univers 13:00:00 23:59:00 Encounter [place] 350.1.13.10 ity of [place] 4.2.7.2.686 [place] Way[place] [id number] [facility] [address] 2020-05-02 2020-05-02 Outpatient R RADIOLOGY [facility] [id number] Univers 00:00:00 00:00:00 ity of [facility] 2020-05-02 2020-05-02 Orders Doctor QIU 1.2.840.114 [id number] Univers 00:00:00 00:00:00 Only Unassigned, FLASH 350.1.13.10 ity of [facility] 4.2.7.2.686 Jefry as [phone] [facility] [address] 2020-04-26 2020-04-26 Telephone Atanasov, [facility] 1.2.840.114 [id number] Univers 00:00:00 00:00:00 Strahil T [place] 350.1.13.10 [place] [phone] [place] 085 [facility] 2020-04-13 2020-04-13 Salvage Repairer Cornel, [facility] Main [facility] 1.2.8 40.114 [id number] Univers 16:39:54 16:54:54 Visit Rubi Valencia [place] 350.1.13. 10 [place] [phone] [facility] 353 [facility] 2020-04-13 2020-04-13 Office Annie [facility] 1.2.840.114 [id number] Univers 15:41:32 16:28:49 Visit Woninezful [facility] 350.1.13.10 ity of [place] 4.2.7.2.686 Jefry as Professio [phone] [facility] [address] Office [facility] 2020-04-13 2020-04-13 Outpatient R ANNIE, [facility] [id number] Univers 15:45:00 15:45:00 WONDIFUL ity o f [facility] 2020-04-13 2020-04-13 Orders Doctor UYEN 1.2.840.114 [id number] Univers 00:00:00 00:00:00 Only Unassigned, FLASH 350.1.13.10 ity of [place] [facility] 4.2.7.2.686 Jefry as [phone] [address] 2020-04-05 2020-04-05 Telephone Annie [facility] 1.2.840.114 [id number] Univers 00:00:00 00:00:00 Wondiful [facility] 350.1.13.10 ity of [place] 4.2.7.2.686 Jefry as Professio [phone] [facility] [address] Office [facility] 2020-04-04 2020-04-04 Emergency Daniel Mina [facility] 1.2.840.114 [id number] Univers 17:35:00 22:35:00 T [place] 350.1.13.10 i [place] [phone] [address] 2020-04-04 2020-04-04 Nurse Nurse, [facility] 1.2 .840.114 [id number] Univers 17:42:16 17:44:25 Visit Jony [facility] 350.1.13.10 ity of [place] 4.2.7.2.686 Jefry as Professio [phone] [address] Office [facility] 2020-04-04 2020-04-04 Outpatient R SHREYA, [facility] [id number] Univers 17:20:00 17:20:00 TRACY ortiz [facility] 2020-03-24 2020-03-24 [facility]840.114 [id number] Univers 00:00:00 00:00:00 Wondiful [facility] 350.1.13.10 ity of [place] 4.2.7.2.686 Jefry as Professio [phone] [address] 2020-03-21 2020-03-21 Outpatient R RIVKA, [facility] [id number] Univers 14:20:00 14:20:00 RAZ ity of [facility] 2020-03-21 2020-03-21 [facility]phone [facility] 1..840.114 [id number] Univers 00:00:00 00:00:00 Wondiful A Health 350.1.13.10 ity of [place] 4.2.7.2.686 Jef[place] as Professio [phone] [address] Office [facility] 2020-03-06 2020-03-06 [facility]phone [facility] 1..840.114 [id number] Univers 00:00:00 00:00:00 Wondiful A Health 350.1.13.10 ity of [place] 4.2.7.2.686 [place]ef[place] as Professio [phone] [address] Office [facility] 2020-03-06 2020-03-06 Telephone [facility] 1.2.840.114 [id number] Univers 00:00:00 00:00:00 Wondiful A Health 350.1.13.10 ity of [place] 4.2.7.2.686 [place] as Professio [phone] [address] Office Building One 2020-03-01 2020-03-01 Refill Annie [facility] 1.2.840.114 [id number] Univers 00:00:00 00:00:00 Wondiful A Health 350.1.13.10 ity of [place] 4.2.7.2.686 [place] as Professio [phone] [address] Office Building One 2020-03-01 2020-03-01 Refill Annie [facility] 1.2.840.114 [id number] Univers 00:00:00 00:00:00 Wondiful A Health 350.1.13.10 ity of [place] 4.2.7.2.686 [place] Professio [phone] [address] Office [facility] One 2020-03-01 2020-03-01 Patient Annie [facility] 1.2.840.114 [id number] Univers 00:00:00 00:00:00 Secure Msg Wondiful A Health 350.1.13.10 ity of [place] 4.2.7.2.686 [place] as Professio [phone] [address] One 2020-03-01 2020-03-01 Refill Doctor [facility] 1.2.840.114 [id number] Univers 00:00:00 00:00:00 Unassigned, Health 350.1.13.10 ity of [place] 4.2.7.2.686 [place] as Professio [phone] [address] Office Building One 2020-02-25 2020-02-25 Hospital Radiology [facility] 1.2.840.114 [id number] Univers 11:00:00 23:59:00 Encounter [place] 350.1.13.10 it[place] [phone] [facility] [address] [place] [address] 2020-02-25 2020-02-25 Outpatient R RADIOLOGY [facility] [id number] Univers 00:00:00 00:00:00 ity of [facility] 2020-02-25 2020-02-25 Orders Doctor UYEN 1.2.840.114 [id number] Univers 00:00:00 00:00:00 Only Unassigned, FLASH 350.1.13.10 ity of [place] [facility] 4.2.7.2.686 Jefry as [phone] [address] 2020-02-22 2020-02-22 Outpatient R ANNIE [facility] [id number] Univers 16:15:00 16:15:00 WONDIFUL ity o f [facility] 2020-02-03 2020-02-03 Telephone [facility] 1.2.840.114 [id number] Univers 00:00:00 00:00:00 Wondiful A Health 350.1.13.10 ity of [place] 4.2.7.2.686 [place] as Professio [phone] [address] Office Building One 2020-02-02 2020-02-02 Lonnie [facility] 1.2.840.114 [id number] Univers 00:00:00 00:00:00 Wondiful A Health 350.1.13.10 ity of [place] 4.2.7.2.686 [place] as Professio [phone] [address] Office Building One 2020-02-02 2020-02-02 Bradley [facility] 1.2.840.114 [id number] Univers 00:00:00 00:00:00 Wondiful A Health 350.1.13.10 ity of [place] 4.2.7.2.686 [place]ef[place] as Professio [phone] [address] Office Building One 2020-02-01 2020-02-01 Urgent Provider, [facility] 1.2.840.114 [id number] Univers 19:16:44 20:07:25 Rubi Lombardo A Health 350.1.13.1 0 ity of [place] 4.2.7.2.686 [place] as Professio [phone] [address] Office Building One 2020-02-01 2020-02-01 Outpatient R ANNIE [facility] [id number] Univers 19:40:00 19:40:00 WONDIFUL ity o f [facility] 2020-01-20 2020-01-20 Orders Doctor UYEN 1.2.840.114 [id number] Univers 00:00:00 00:00:00 Only Unassigned, FLASH 350.1.13.10 ity of [place] HOSPITAL 4.2.7.2.686 Jefry as [phone] [facility] [address] 2020-01-13 2020-01-16 Office [facility] 1.2.840.114 [id number] Univers 13:17:43 23:46:34 Visit Wondiful A Health 350.1.13.10 ity of [place] 4.2.7.2.686 [place]ef[place] as Professio [phone] [address] Office [facility] 2020-01-13 2020-01-13 Salvage Repairer Lab, Adc Fam Pob I [facility] 1.2. 840.114 [id number] Univers 14:01:56 14:14:40 Visit Rubi Valencia Health 350.1.13.1 0 ity of [place] 4.2.7.2.686 [place] as Professio [phone] [address] Office [facility] 2020-01-13 2020-01-13 Outpatient Bryan VALENCIA [facility] [id number] Univers 13:15:00 13:15:00 WONDIFUL ity o f [facility] 2020-01-06 2020-01-06 Outpatient GREGORY [facility] [id number] [place] 00:00:00 00:00:[address] 2019-12-16 2019-12-[address] [facility] 1.2.664.449 0001 [id number] Univers 17:19:00 19:27:00 Nayana Leach 350.1.13.10 i [place] [phone] [facility] [address] 2019-12-15 2019-12-15 Outpatient VELIA RIDDLE MDA MDA [id number] 14:28:05 14:28:05 YENIFER ackerman 2019-12-15 2019-12-15 Outpatient VELIA RIDDLE MDA MDA [id number] 13:59:53 14:11:39 YENIFER Balajienmanuel ackerman 2019-12-10 2019-12-10 Orders Doctor UYEN 1.2.840.114 [id number] 00:00:00 00:00:00 Only Unassigned, FLASH 350.1.13.10 [facility] 4.2.7.2.686 [place]ef[place] as [phone] [address] 2019-12-08 2019-12-08 Outpatient VELIA RIDDLE MDA MDA [id number] 00:00:00 00:00:00 YENIFER ackerman 2019-12-07 2019-12-07 Telephone Annie [facility] 1.2.840.114 [id number] [facility] 00:00:00 00:00:00 Wondiful A [place] 350.1.13.10 it[place] [phone] [place] dicethan nal [address] [place] [address] 2019-12-02 2019-12-02 Outpatient [facility] [id number] [place] 00:00:00 00:00:00 614 Method i 2019-12-02 2019-12-02 Outpatient GREGORY [facility] [id number] [place] 00:00:00 00:00:00 615 Method i 2019-11-30 2019-11-30 Refill [facility] 1.2.840.114 [id number] [facility] 00:00:00 00:00:00 Wondiful A Health 350.1.13.10 ity of [place] 4.2.7.2.686 [place]ef[place] as Professio [phone] [place] agustin teixeira [address] [place] [address] Office Building One 2019-11-24 2019-11-24 Outpatient R ANNIE [facility] [id number] Univers 10:30:00 10:30:00 WONDIFUL ity o f [facility] 2019-11-24 2019-11-24 Salvage Repairer 2, Adc Lab [facility] 1.2.840.114 [id number] Univers 08:15:09 08:30:09 Visit Rubi Valencia A [place] 350.1.13. 10 ity [place] [phone] [place] dical nal 353 [facility] 2019-11-23 2019-11-23 Office [facility] 1.2.840.114 [id number] [facility] 16:19:16 16:56:30 Visit Wondiful A [place] 350.1.13.10 ity of [place].2.[place] [phone] [place] dical nal 044 [facility] 2019-11-23 2019-11-23 [facility] [id number] [facility] 16:15:00 16:15:00 WONDIFUL ity o f [facility] 2019 2019 Outpatient GREGORY [facility] [id number] [place] 00:00:00 00:00:00 388 Method i 2019-11-04 2019-11-04 Refill [facility] 1.2.840.114 [id number] [facility] 00:00:00 00:00:00 Wondiful A Health 350.1.13.10 ity of [place] 4.2.7.2.686 [place]ef[place] as Professio [phone] [place] dical nal 044 [facility] 2019-11-04 2019-11-04 Telephone [facility] 1.2.840.114 [id number] [facility] 00:00:00 00:00:00 Wondiful A Health 350.1.13.10 ity of [place] 4.2.7.2.686 [place] as Professio [phone] [place] dical nal 044 [facility] 2019-11-03 2019-11-03 Outpatient EL MUSUNURU, MDA MDA [id number] 00:00:00 00:00:00 YENIFER ackerman 2019-11-02 2019-11-02 Outpatient EL MUSUNURU, MDA MDA [id number] 11:04:49 11:04:49 YENIFER ackerman 2019-11-01 2019-11-01 Orders Doctor QIU 1..840.114 [id number] Univers 00:00:00 00:00:00 Only Unassigned, FLASH 350.1.13.10 ity of [facility] 4.2.7.2.686 Jef[place] as [phone] [address] 2019-10-27 2019-10-28 Outpatient EL MUSUNURU, MDA MDA [id number] 14:04:02 09:59:15 ANANDAJO Balaji o n 2019-10-20 2019-10-20 Outpatient EL MUSUNURU, MDA MDA [id number] MD 00:00:00 00:00:00 ANANDAJO Balaji o n 2019-10-19 2019-10-19 Outpatient EL MUSUNURU, MDA MDA [id number] 14:01:57 16:41:09 ANANDAJO Balaji o n 2019-10-13 2019-10-13 Outpatient EL MUSUNURU, MDA MDA [id number] 11:38:55 14:16:11 YENIFER Balaji o n 2019-10-07 2019-10-07 [facility]ill [facility] 1.2.840.114 [id number] Univers 00:00:00 00:00:00 Wondiful A Health 350.1.13.10 ity of [place] 4.2.7.2.686 Jef[place] as Professio [phone] [address] Office Building One 2019-10-06 2019-10-06 Outpatient [facility] [id number] Univers 18:00:00 18:00:00 ASAF ity of [facility] 2019-10-06 2019-10-06 Outpatient EL MUSUNURU, MDA MDA [id number] 16:51:52 16:56:40 YENIFER Balaji o n 2019-10-06 2019-10-06 Outpatient EL MUSUNURU, MDA MDA [id number] MD 15:28:24 15:28:24 YENIFER Balaji o n 2019-10-05 2019-10-05 Lonnie [facility] 1.2.840.114 [id number] Univers 00:00:00 00:00:00 Wondiful A Health 350.1.13.10 ity of [place] 4.2.7.2.686 [place] as Professio [phone] [place] dical nal [address] Office Building One 2019-10-04 2019-10-04 Outpatient VELIA RIDDLE MDA MDA [id number] 14:45:10 14:47:15 YENIFER ackerman 2019-09-29 2019-09-29 Outpatient Bryan [facility] [id number] Univers 14:47:22 23:59:00 CHELITA ortiz [facility] 2019-09-29 2019-09-29 [facility] 1.2.280.801 [id number] Univers 14:47:00 23:59:00 Encounter Chelita Leach 350.1.13.10 ity of [facility] 4.2.7.2.686 [facility] [phone] [address] 2019-09-27 2019-09-27 Office [facility] 1.2.840.114 [id number] Univers 13:11:52 13:41:52 Visit Chelita DOUGLAS 350.1.13.10 ity of [facility] 4[place].7.2.[place] [phone] [facility] [address] 2019-09-27 2019-09-27 Outpatient [facility] [id number] Univers 13:15:00 13:15:00 CHELITA ortiz [facility] 2019-09-27 2019-09-27 Orders Doctor UYEN 1.2.840.114 [id number] Univers 00:00:00 00:00:00 Only Unassigned, FLASH 350.1.13.10 ity of [place] [facility] 4.2.7.2.686 Jefry as [phone] [address] 2019-09-21 2019-09-21 Orders Doctor UYEN 1.2.840.114 [id number] Univers 00:00:00 00:00:00 Only Unassigned, FLASH 350.1.13.10 ity of [place] [facility] 4.2.7.2.686 Jefry as [phone] [address] 2019-09-20 2019-09-20 Patient Doctor UYEN 1.2.840.114 [id number] Univers 00:00:00 00:00:00 Secure Msg Unassigned, FLASH 350.1.13.10 [facility] 4.2.7.2.686 Jef[place] as [phone] [address] 2019-09-16 2019-09-16 Telephone Annie [facility] 1.2.840.114 [id number] Univers 00:00:00 00:00:00 Wondiful A Health 350.1.13.10 ity of [place] 4.2.7.2.686 Jef[place] as Professio [phone] [address] Office [facility] One 2019-09-13 2019-09-13 Outpatient R ANNIE [facility] [id number] Univers 15:32:34 23:59:00 WONDIFUL ity o f [facility] 2019-09-13 2019-09-13 Outpatient R ANNIE [facility] [id number] Univers 00:00:00 00:00:00 WONDIFUL ity o f [facility] 2019-09-09 2019-09-09 Lonnie [facility] 1.2.840.114 [id number] Univers 00:00:00 00:00:00 Wondiful A [place] 350.1.13.10 it[place] [phone] [address] 2019-09-09 2019-09-09 Patient [place] [facility] 1.2.840.114 [id number] Univers 00:00:00 00:00:00 Secure Msg Wondiful A [place] 350.1.13.10 ity [place].2.[place] [phone] [address] 2019-09-08 2019-09-08 Case [facility] 1.2.840.114 [id number] Univers 00:00:00 00:00:00 Management Wondiful A [place] 350.1.13.10 ity [place]2.[place].2.[place] [phone] [address] 2019-09-08 2019-09-08 Telephone [facility] 1.2.840.114 [id number] Univers 00:00:00 00:00:00 Wondiful A [place] 350.1.13.10 ity [place] 4[place]2.[place].2.[place] [phone] [facility] 044 [facility] 2019-09-08 2019-09-08 Telephone [facility] 1.2.840.114 [id number] Univers 00:00:00 00:00:00 Wondiful A Health 350.1.13.10 ity of [place] 4.2.7.2.686 [place] as Professio [phone] [address] Office Building One 2019-09-07 2019-09-07 Salvage Repairer 2, Adc Lab [facility] 1.2.840.114 [id number] Univers 16:06:15 16:21:15 Visit AnnieRubi A [place] 350.1.13. 10 ity of [place] 4.2.7.2.[place] [phone] [facility] 353 [facility] 2019-09-07 2019-09-07 Office [facility] 1.2.840.114 [id number] Univers 15:10:42 16:02:12 Visit Wondiful A [place] 350.1.13.10 ity of [place] 4.2.7.2.[place] [phone] [address] 2019-09-07 2019-09-07 Outpatient [facility] [id number] Univers 15:30:00 15:30:00 WONDIFUL ity o f [facility] 2019-09-07 2019-09-[address] [facility] 1.2.840.114 [id number] Univers 00:00:00 00:00:00 Wondiful A [place] 350.1.13.10 ity of [place] 4[place]2.[place].2.[place] [phone] [address] 2019-09-07 2019-09-07 Orders Doctor QIU 1.2.840.114 [id number] Univers 00:00:00 00:00:00 Only Unassigned, FLASH 350.1.13.10 ity of [place] [facility] 4.2.7.2.686 Jefry as [phone] [address] 2019-09-02 2019-09-02 Telephone [facility] 1.2.840.114 [id number] Univers 00:00:00 00:00:00 Wondiful A [place] 350.1.13.10 ity of [place] 4.2.7.2.[place] [phone] [place] dic[address] 2019-08-31 2019-08-31 Bradley [facility] 1.2.840.114 [id number] Univers 00:00:00 00:00:00 Wondiful A Health 350.1.13.10 ity of [place] 4.2.7.2.686 [place]ef[place] as Professio [phone] [address] Office [facility] 2019-08-16 2019-08-16 Lonnie [facility]PRES[facility]TER[facility] 1.2.840.114 [id number] Univers 00:00:00 00:00:00 Wondiful A Health 350.1.13.10 ity of [place] 4.2.7.2.686 [place] as Professio [phone] [address] Office Building [facility] 2019-08-16 2019-08-16 Bradley [facility] 1.2.840.114 [id number] Univers 00:00:00 00:00:00 Wondiful A [place] 350.1.13.10 ity [place] 4[place]2.[place].2.[place] [phone] [address] 2019-08-09 2019-08-09 Outpatient R ANNIE [facility] [id number] Univers 10:15:00 10:15:00 WONDIFUL ity o f [facility] 2019-08-07 2019-08-07 Abelardo Nascimento [facility] 1.2.840.114 [id number] Univers 00:00:00 00:00:00 Davina [place] 350.1.13.10 i ty of [place] 4.2.7.2.[place] [phone] [facility] 220 [facility] 2019-07-28 2019-07-28 Telephone [facility] 1..840.114 [id number] Univers 00:00:00 00:00:00 Wondiful A Health 350.1.13.10 ity of [place] 4.2.7.2.686 Jef[place] as Professio [phone] [facility] 044 [facility] 2019-07-12 2019-07-12 Telephone [facility]PRES[facility]TER[facility] 1..840.114 [id number] Univers 00:00:00 00:00:00 Strahil T [place] 350.1.13.10 ity [place]2.[place] [phone] [facility] 085 [facility] 2019-07-09 2019-07-09 Outpatient R ANNIE [facility] [id number] Univers 08:15:00 08:15:00 WONDIFUL ity o f [facility] 2019-07-09 2019-07-09 Telemedici [facility] 1.840.114 [id number] Univers 07:12:02 07:27:02 ne Visit Wondiful A Health 350.1.13.10 ity of [place] 4.2.7.2.686 [place] as Professio [phone] [address] 2019-07-07 2019-07-07 Outpatient Raju_P MMG MMG [id number] 020 [place] 12:12:00 12:12:00 0325 [facility] 2019-06-30 2019-06-30 Refill [facility] 1.2.840.114 [id number] Univers 00:00:00 00:00:00 Wondiful A Health 350.1.13.10 ity of [place] 4.2.7.2.686 [place] Professio [phone] [address] 2019-06-16 2019-06-16 Bradley [facility]PRES[facility] 1.2.840.114 [id number] Univers 00:00:00 00:00:00 Wondiful A Health 350.1.13.10 ity of [place] 4.2.7.2.686 [place] as Professio [phone] [address] Office [facility] 2019-06-14 2019-06-14 Telephone [facility] 1.2.840.114 [id number] Univers 00:00:00 00:00:00 Wondiful A Health 350.1.13.10 ity of [place] 4.2.7.2.686 [place] as Professio [phone] [address] Office [facility] One 2019-06-11 2019-06-11 Office [facility] 1.2.840.114 [id number] Univers 11:15:43 11:54:57 Visit Wondiful A Health 350.1.13.10 ity of [place] 4.2.7.2.686 [place] as Professio [phone] [address] Office [facility] 2019-06-11 2019-06-11 Outpatient [facility] [id number] Univers 11:15:00 11:15:00 WONDIFUL ity o f [facility] 2019-06-11 2019-06-[address] [facility] 1.2.840.114 [id number] Univers 00:00:00 00:00:00 Wondiful A Health 350.1.13.10 ity of [place] 4.2.7.2.686 [place] Professio [phone] [address] 2019-06-09 2019-06-09 Orders Doctor UYEN 1.2.840.114 [id number] Univers 00:00:00 00:00:00 Only Unassigned, FLASH 350.1.13.10 ity of [place] [facility] 4.2.7.2.686 Jefry as [phone] [facility] [address] 2019-05-27 2019-05-27 Emergency [facility] 1.2.898.656 [id number] Univers 11:23:50 16:38:00 Katia R Haylee 350.1.13.10 i ty of [place] [phone] [facility] [address] 2019-05-27 2019-05-27 Emergency X [facility] ERT [id number] Univers 11:23:50 16:38:00 KATIA ity of [facility] 2019-05-27 2019-05-27 Emergency X CHOLO, [facility] ERT [id number] Univers 11:23:50 16:38:00 KATZHEN ity of [facility] 2019-05-24 2019-05-[address] [facility] 1.2.840.114 [id number] Univers 00:00:00 00:00:00 Wondiful A Health 350.1.13.10 ity of [place] 4.2.7.2.686 [place] as Professio [phone] [address] 2019-05-20 2019-05-20 [facility] 1.2.093.376 [id number] Univers 11:36:54 15:28:00 Wavirajli S [place] 350.1.13.10 ity of [place] 4.2.7.2.686 [facility] [phone] [address] 2019-05-19 2019-05-[address] [facility] 1.2.840.114 [id number] Univers 00:00:00 00:00:00 Wondiful A Health 350.1.13.10 ity of [place] 4.2.7.2.686 [place] as Professio [phone] [address] 2019-05-18 2019-05-[address] [facility] 1.2.667.704 [id number] Univers 14:42:52 20:01:00 Johnnie S [place] 350.1.13.10 i ty of [place] 4.2.7.2.686 [facility] [phone] [address] 2019-05-18 2019-05-18 Emergency X [facility] [id number] Univers 14:42:52 20:01:00 JOHNNIE ity of [facility] 2019-05-18 2019-05-[address] [facility] 1.2.840.114 [id number] Univers 14:08:35 14:31:10 Visit Wondiful A Health 350.1.13.10 ity of [place] 4.2.7.2.686 Jef[place] as Professio [phone] [place] [facility] [address] Office Building One 2019-04-27 2019-04-27 Office [facility]PRES[facility] 1.2.840.114 [id number] Univers 14:03:56 14:56:08 Visit Gurmeeteugene Kiser Haylee 350.1.13.10 it[place] [phone] [facility] 059 [facility] 2019-04-27 2019-04-27 Outpatient R RILEY, [facility] [id number] Univers 14:00:00 14:56:08 SENDIL itjose manuel of [facility] 2019-03-25 2019-03-25 Outpatient [facility] [id number] Univers 13:00:00 14:53:50 TONNY villar o f [facility] 2018-12-30 2018-12-30 Emergency [facility] 1.2.442.822 [id number] [facility] 16:33:05 19:07:00 Juan Daniel [place] 350.1.13.10 [place] [phone] [address] 2018-12-29 2018-12-29 Refill [facility] 1.2.840.114 [id number] Univers 00:00:00 00:00:00 [facility] 350.1.13.10 ity of [place] 4.2.7.2.686 Jefry as Professio [phone] [address] Office [facility] 2018-12-25 2018-12-25 [facility] 1.2.840.114 [id number] Univers 16:26:52 17:15:59 Visit [facility] 350.1.13.10 ity of [place] 4.2.7.2.686 Jefry as Professio [phone] [facility] [address] [facility] One 2018-12-11 2018-12-11 [facility] 1.2.840.114 [id number] Univers 15:30:00 23:59:00 Encounter Roxy M [place] 350.1.13.10 [place] 4.2.7.2.686 [place] [facility] [phone] [facility] [address] 2018-12-09 2018-12-09 Telephone Annie [facility] 1.2.840.114 [id number] Univers 00:00:00 00:00:00 [facility] 350.1.13.10 [place]y of [place] 4.2.7.2.686 Jefry as Professio [phone] [address] Office [facility] One 2018-12-08 2018-12-08 Orders Doctor UYEN 1.2.840.114 [id number] Univers 00:00:00 00:00:00 Only Unassigned, FLASH 350.1.13.10 ity of [place] [facility] 4.2.7.2.686 Jefry as [phone] [facility] [address] 2018-12-02 2018-12-02 Telephone Annie [facility] 1.2.840.114 [id number] Univers 00:00:00 00:00:00 [facility] 350.1.13.10 ity of [place] 4.2.7.2.686 Jefry as Professio [phone] [address] Office [facility] One 2018-12-02 2018-12-02 Orders Doctor UYEN 1.2.840.114 [id number] Univers 00:00:00 00:00:00 Only Unassigned, FLASH 350.1.13.10 ity [facility] [place] [facility] 4.2.7.2.686 Jefry as [phone] [facility] [address] 2018-11-26 2018-11-26 Office [place] [facility] 1.2.840.114 [id number] Univers 07:58:43 08:41:48 Visit [facility] 350.1.13.10 ity of [place] 4.2.7.2.686 Jefry as Professio [phone] [address] Office [facility] One 2018-11-20 2018-11-23 Salvage Repairer 1, Adc Lab [facility] 1.2.840.114 [id number] Univers 08:45:28 07:47:30 Visit Annie, Rubi A [place] 350.1.13. 10 [place] 4.2.7.2.686 [facility] [phone] [facility] [address] 2018-11-20 2018-11-20 Orders Doctor UYEN 1.2.840.114 [id number] Univers 00:00:00 00:00:00 Only Unassigned, FLASH 350.1.13.10 ity of [place] [facility] 4.2.7.2.686 Jefry as [phone] [facility] [address] 2018-11-17 2018-11-[address] [facility] 1.2.579.156 [id number] Univers 13:59:39 23:59:00 Encounter [facility] [place] 350.1.13.10 [facility]y [facility] [place] 4.2.7.2.686 [facility] [phone] [facility] [address] 2018-11-17 2018-11-[address] [facility] 1.2.840.114 [id number] Univers 00:00:00 00:00:00 [facility] 350.1.13.10 ity of [place] 4.2.7.2.686 Jefry as Professio [phone] [address] Office Building One 2018-11-17 2018-11-17 Orders Doctor UYEN 1.2.840.114 [id number] Univers 00:00:00 00:00:00 Only Unassigned, FLASH 350.1.13.10 [facility] [place] 4.2.7.2.686 Jefry as [phone] [address] 2018-11-10 2018-11-[address] [facility] 1.2.840.114 [id number] Univers 15:59:52 16:59:49 Visit [facility] 350.1.13.10 ity of [place] 4.2.7.2.686 Jefry as Professio [phone] [address] Office Building One 2018-11-09 2018-11-[address] [facility] 1.2.840.114 [id number] Univers 00:00:00 00:00:00 [facility] 350.1.13.10 ity of [place] 4.2.7.2.686 Jefry as Professio [phone] [place] dical nal 044 [facility] Building One 2018-11-06 2018-11-06 Telephone AKBAR [place] 1.2.840.114 [id number] Univers 00:00:00 00:00:00 Rubi A [facility] 350.1.13.10 ity claudia Leach 4.2.7.2.686 Jefry as Professio [phone] [facility] nal 0[address] [facility] Building One Results Test Description Test Time Test Comments Results Result Comments Source POCT HEMOGLOBIN A1C TEST 2022-10-18 15:16:00 Test Item Value Reference Range Interpretation Comme nts POCT HBA1C (test code = 4548-4) 7.8 % 4-6 A Lab Interpretation (test code = 51456-7) Abnormal [facility] HEMOGLOBIN A1C [id number] 15:16:00 Test Item Value Reference Range Interpretation Comments POCT HBA1C (test code = 4548-4) 7.8 % 4-6 A Lab Interpretation (test code = Abnormal 28699-1) [facility] URINALYSIS W SPECIFIC [id number] 18:03:00 Test Item Value Reference Range Interpretation Comments POCT U SP GRAV (test code = 1.020 mg/dl 1.005-1.025 3255) POCT PH U (test code = 3254) 5 mg/dl 5-8 POCT U LEUK EST (test code = Neg Negative - Negative 3263) POCT U NIT (test code = 3262) Neg Negative - Negative POCT U PROT (test code = Trace Negative - Negative 3259) POCT U GLU (test code = 3256) 250 Negative - Negative POCT U KETONE (test code = Neg Negative - Negative 3258) POCT U UROBILI (test code = Neg 0.2-1 3260) POCT U BILI (test code = Neg Negative - Negative 3261) POCT U BLD (test code = 3257) Neg Negative - Negative POCT U COLOR (test code = Yellow 3266) POCT U APPEAR (test code = Clear 3267) [facility] [id number] 10:30:43 Test Item Value Reference Range Interpretation Comments SCAN RESULT (test code = 6762112) See attachment Miscellaneous lab [id number] 10:30:43Scan Hmlyxu0407/31/2022 10:30 AM CDTSLEH [facility] [place] [facility] test 2022-07-31 10:30:43Scan Hkwhxy5507/31/2022 10:30 AM CDTSLEH [facility] [place]isc[place] lab [id number] 10:30:43Scan Cnjzun1407/31/2022 10:30 AM CDTSLEH NON-INTERFACED [facility] [place]POCT MOLECULAR [id number] 20:15:50 Test Item Value Reference Range Interpretation Comments POCT Molecular FluA (test code = Negative Negative 45326-3) POCT Molecular FluB (test code = Negative Negative 15543-7) Lab Interpretation (test code = Normal 69104-3) [facility] MOLECULAR [id number] 20:15:50 Test Item Value Reference Range Interpretation Comments POCT Molecular FluA (test code = Negative Negative 35931-2) POCT Molecular FluB (test code = Negative Negative 79028-7) Lab Interpretation (test code = Normal 22462-6) [facility] GLUCOSE (AUTOMATED)2022-06-11 18:31:08 Test Item Value Reference Range Interpretation Comments POCT GLU (test code = 2074763324) 238 mg/dL 70-110 H Lab Interpretation (test code = Abnormal 02331-9) [facility] GLUCOSE (AUTOMATED)2022-06-11 15:45:15 Test Item Value Reference Range Interpretation Comments POCT GLU (test code = 9013370410) 202 mg/dL 70-110 H Lab Interpretation (test code = Abnormal 88301-9) [facility] GLUCOSE (AUTOMATED)2022-06-11 02:38:12 Test Item Value Reference Range Interpretation Comments POCT GLU (test code = 3282320937) 282 mg/dL 70-110 H Lab Interpretation (test code = Abnormal 73543-1) [facility] GLUCOSE (AUTOMATED)2022-06-10 22:25:18 Test Item Value Reference Range Interpretation Comments POCT GLU (test code = 9090696159) 207 mg/dL 70-110 H Lab Interpretation (test code = Abnormal 81419-2) [facility] GLUCOSE (AUTOMATED)2022-06-10 18:34:57 Test Item Value Reference Range Interpretation Comments POCT GLU (test code = 3752512802) 157 mg/dL 70-110 H Lab Interpretation (test code = Abnormal 46635-0) [facility] GLUCOSE (AUTOMATED)2022-06-10 15:02:38 Test Item Value Reference Range Interpretation Comments POCT GLU (test code = 2831762785) 164 mg/dL 70-110 H Lab Interpretation (test code = Abnormal 08331-6) [facility] GLUCOSE (AUTOMATED)2022-06-10 02:35:29 Test Item Value Reference Range Interpretation Comments POCT GLU (test code = 3860247416) 176 mg/dL 70-110 H Lab Interpretation (test code = Abnormal 50077-7) [facility] GLUCOSE (AUTOMATED)2022-06-09 22:36:02 Test Item Value Reference Range Interpretation Comments POCT GLU (test code = 4786255513) 141 mg/dL 70-110 H Lab Interpretation (test code = Abnormal 02248-6) [facility] GLUCOSE (AUTOMATED)2022-06-09 17:59:48 Test Item Value Reference Range Interpretation Comments POCT GLU (test code = 9465413595) 221 mg/dL 70-110 H Lab Interpretation (test code = Abnormal 05173-0) [facility] GLUCOSE (AUTOMATED)2022-06-09 14:05:00 Test Item Value Reference Range Interpretation Comments POCT GLU (test code = 0139988734) 191 mg/dL 70-110 H Lab Interpretation (test code = Abnormal 19882-3) [facility] Whole [id number] 11:01:54 Test Item Value Reference Range Interpretation Comments LACTIC ACID (test code = 1.87 mmol/L 0.50-2.20 7204239314) Lab Interpretation (test code = Normal 92764-7) [facility] GLUCOSE (AUTOMATED)2022-06-09 02:33:04 Test Item Value Reference Range Interpretation Comments POCT GLU (test code = 1488787864) 221 mg/dL 70-110 H Lab Interpretation (test code = Abnormal 14001-8) [facility] GLUCOSE (AUTOMATED)2022-06-08 22:54:59 Test Item Value Reference Range Interpretation Comments POCT GLU (test code = 5595419253) 215 mg/dL 70-110 H Lab Interpretation (test code = Abnormal 04942-1) [facility] GLUCOSE (AUTOMATED)2022-06-08 22:49:01 Test Item Value Reference Range Interpretation Comments POCT GLU (test code = 5572413226) 207 mg/dL 70-110 H Lab Interpretation (test code = Abnormal 05526-7) [facility] Austin[facility]-REACTIVE [id number] 17:45:48 Test Item Value Reference Range Interpretation Comments CRP (test code = 7349306059) 12.3 mg/dL <=0.8 H Lab Interpretation (test code = Abnormal 37935-8) [facility] GLUCOSE (AUTOMATED)2022-06-08 14:26:08 Test Item Value Reference Range Interpretation Comments POCT GLU (test code = 1774523493) 254 mg/dL 70-110 H Lab Interpretation (test code = Abnormal 15460-3) [facility] GLUCOSE (AUTOMATED)2022-06-08 02:38:40 Test Item Value Reference Range Interpretation Comments POCT GLU (test code = 5737105792) 181 mg/dL 70-110 H Lab Interpretation (test code = Abnormal 54249-4) [facility] GLUCOSE (AUTOMATED)2022-06-07 22:53:00 Test Item Value Reference Range Interpretation Comments POCT GLU (test code = 1396764857) 178 mg/dL 70-110 H Lab Interpretation (test code = Abnormal 54206-7) [facility]ALCITONIN2023-02-24 19:17:11 Test Item Value Reference Range Interpretation Comments Procalcitonin (test 0.24 ng/mL <=0.07 H code = 1835095967) MARIE (test code = MARIE) INTERPRETATION OF [...] lung abscess/empyema. For further information please refer to:[email or web address] Lab Interpretation Abnormal (test code = 44721-4) [facility] GLUCOSE (AUTOMATED)2022-06-07 17:23:08 Test Item Value Reference Range Interpretation Comments POCT GLU (test code = 6103623677) 219 mg/dL 70-110 H Lab Interpretation (test code = Abnormal 06058-0) [facility] GLUCOSE (AUTOMATED)2022-06-07 17:04:52 Test Item Value Reference Range Interpretation Comments POCT GLU (test code = 0316596223) 148 mg/dL 70-110 H Lab Interpretation (test code = Abnormal 48833-9) [facility] Austin[facility]-TERMINAL ASC-[id number] 14:34:22 Test Item Value Reference Range Interpretation Comments NT-proBNP (test code = 896 pg/mL <=125 H 6259403888) MARIE (test code = MARIE) Biotin has been reported to cause a negative bias, interpret results relative to patient's use of biotin. Lab Interpretation (test Abnormal code = 07241-9) [facility] AustinSEDIMENTATION [id number] 13:35:02 Test Item Value Reference Range Interpretation Comments ESR (test code = 59 See_Comment H [Automated message] 02425-3) The system [employer] generated this result transmitted ref erence range: 0 - 20 m m/HR. The reference r hal was not used to interpret this result as normal/abnor mal. Lab Interpretation (test Abnormal code = 54575-1) [facility] AustinFERRITIN [id number] 13:31:35 Test Item Value Reference Range Interpretation Comments FERRITIN (test code = 20.1 ng/mL 11.0-264.0 3580590138) MARIE (test code = MARIE) Biotin has been reported to cause a negative bias, interpret results relative to patient's use of biotin. Lab Interpretation (test Normal code = 32713-1) [facility] AustinTHYROID STIMULATING [id number] 13:27:12 Test Item Value Reference Range Interpretation Comments TSH (test code = 0.47 See_Comment [Automated message] 4629747920) The system [employer] generated this result transmitted ref erence range: 0.45 - 4 .70 mIU/L. The refe rence range was not u sed to interpret this result as normal/abnor mal. Lab Interpretation (test Normal code = 18314-8) [facility] AustinIRON [id number] 13:11:55 Test Item Value Reference Range Interpretation Comments IRON (test code = 2656627037) 33 ug/dL 50-160 L TIBC (test code = 6341027547) 424 ug/dL 250-410 H % FE SAT (test code = 3792575132) 8 % 20-50 L Lab Interpretation (test code = Abnormal 57935-2) [facility] AustinLACTATE [id number] 13:03:55 Test Item Value Reference Range Interpretation Comments LDH (test code = 7382974391) 221 U/L 120-246 Lab Interpretation (test code = Normal 45969-6) [facility] AustinLIPID PANEL (18455)(TOTAL CHOLESTEROL, TRIGLYCERIDES, HDL)2022-06-07 13:02:54 Test Item Value Reference Range Interpretation Comments CHOL (test code = 2425069525) 127 mg/dL 120-200 HDL (test code = 9926361537) 64 mg/dL >=50 HDLC RATIO (test code = 0314026195) 2.0 <=4.5 TRIG (test code = 5962763103) 179 mg/dL 30-170 H LDL CHOL (test code = 29755-4) 27 mg/dL <=160 VLDL (test code = 0698222711) 36 mg/dL 5-60 Lab Interpretation (test code = Abnormal 59033-9) [facility] AustinCOMP. METABOLIC PANEL (82914)2022-06-07 13:02:43 Test Item Value Reference Range Interpretation Comments NA (test code = 137 mmol/L 135-145 3710154614) K (test code = 4.3 mmol/L 3.5-5.0 7064572974) CL (test code = 98 mmol/L 98-108 1080685178) CO2 TOTAL (test code = 25 mmol/L 23-31 4028959489) AGAP (test code = 14 2-16 7643613657) BUN (test code = 28 mg/dL 7-23 H 1635507726) GLUCOSE (test code = 238 mg/dL 70-110 H 4008015252) CREATININE (test code = 1.26 mg/dL 0.50-1.04 H 6927837824) TOTAL BILI (test code = 0.8 mg/dL 0.1-1.6 2360523476) CALCIUM (test code = 8.8 mg/dL 8.6-10.6 8956825627) T PROTEIN (test code = 7.2 g/dL 6.3-8.2 9825062284) ALBUMIN (test code = 3.9 g/dL 3.5-5.0 6458029828) ALK PHOS (test code = 83 U/L 34-122 6197568170) ALTv (test code = 26 U/L 5-35 2-6) AST(SGOT) (test code = 24 U/L 13-40 7161828894) eGFR (test code = 42.4 mL/min/1.73m2 1046270907) MARIE (test code = MARIE) Association of [...] tests). Lab Interpretation Abnormal (test code = 15872-1) [facility] AustinCREATINE [id number] 13:01:53 Test Item Value Reference Range Interpretation Comments CK (test code = 9025153549) 83 U/L 33-194 Lab Interpretation (test code = Normal 85800-5) [facility] AustinURIC [id number] 13:01:53 Test Item Value Reference Range Interpretation Comments URIC ACID (test code = 5607634953) 5.6 mg/dL 2.9-6.0 Lab Interpretation (test code = Normal 82193-9) [facility] WITH [id number] 12:43:11 Test Item Value Reference Range Interpretation Comments WBC (test code = 9.02 See_Comment [Automated 5390-2) message] The sy stem which generated this result transmitted reference range : 4.30 - 11.10 10*3/?L. The reference range was not used to interpret this result as normal/abnormal . RBC (test code = 4.82 See_Comment [Automated 669-8) message] The sy stem which generated this [...] RDW-SD (test code = 44.2 fL 39.0-49.9 07377-3) RDW-CV (test code = 16.6 % 12.0-15.5 H 788-0) PLT (test code = 265 See_Comment [Automated 007-3) message] The sy stem which generated this result transmitted reference range : 166 - 358 10*3/ ?L. The reference r hal was not used to interpret this result as normal/abnormal . MPV (test code = 11.3 fL 9.5-12.9 47095-4) NRBC/100 WBC (test 0.0 See_Comment [Automat ed code = 6196095602) message] The system which generated this result transmitted reference range : 0.0 - 10.0 /100 WBCs. The refer ence range was not u sed to interpret th is result as normal/abnormal . NRBC x10^3 (test code See_Comment [Auto mated = 6970797664) message] The s ystem which generated this result transmitted reference range : 10*3/?L. The reference range was not used to interpret this result as normal/abnormal . GRAN MAT (NEUT) % 66.9 % (test code = 770-8) IMM GRAN % (test code 0.40 % = 9888593466) LYMPH % (test code = 23.5 % 736-9) MONO % (test code = 8.2 % 5905-5) EOS % (test code = 0.8 % 713-8) BASO % (test code = 0.2 % 706-2) GRAN MAT x10^3(ANC) 6.03 10*3/uL 1.88-7.09 (test code = 3824404890) IMM GRAN x10^3 (test 0.04 10*3/uL 0.00-0.06 code = 2797057150) LYMPH x10^3 (test code 2.12 10*3/uL 1.32-3.29 = 731-0) MONO x10^3 (test code 0.74 10*3/uL 0.33-0.92 = 742-7) EOS x10^3 (test code = 0.07 10*3/uL 0.03-0.39 711-2) BASO x10^3 (test code 0.01-0.07 = 704-7) Lab Interpretation Abnormal (test code = 97326-3) [facility] AustinProthrombin Time / [id number] 12:29:29 Test Item Value Reference Range Interpretation Comments PROTIME PATIENT (test 13.0 See_Comment [Auto mated message] code = 5964-2) The system ich generated this result transmitted ref erence range: 12.0 - 1 4.7 Seconds. The re ference range was not u sed to interpret this result as normal/abnor mal. INR (test code = 6301-6) 1.0 Nor mal INR <1.1; Warfarin Therap eutic range 2.0 to 3. 0 or 2.5 to 3.5, dep ending upon the indica tions. Lab Interpretation (test Normal code = 11691-2) [facility] GLUCOSE (AUTOMATED)2022-06-07 08:34:01 Test Item Value Reference Range Interpretation Comments POCT GLU (test code = 8921427427) 287 mg/dL 70-110 H Lab Interpretation (test code = Abnormal 46929-9) [facility] GLUCOSE (AUTOMATED)2022-06-07 03:09:09 Test Item Value Reference Range Interpretation Comments POCT GLU (test code = 7724113848) 191 mg/dL 70-110 H Lab Interpretation (test code = Abnormal 94811-1) [facility] MOLECULAR [id number] 19:42:00 Test Item Value Reference Range Interpretation Comments POCT Molecular FluA (test code = Negative Negative 21220-2) POCT Molecular FluB (test code = Negative Negative 11552-4) Lab Interpretation (test code = Normal 85254-1) [facility] MOLECULAR [id number] 19:36:40 Test Item Value Reference Range Interpretation Comments POCT Molecular Strep (test code = Negative Negative 68285-5) Lab Interpretation (test code = Normal 63456-0) [facility] SARS-COV-2 ANTIGEN (BINAX NOW)2022-06-01 19:36:00 Test Item Value Reference Range Interpretation Comments POCT SARS-COV-2 ANTIGEN (test code = Positive Not Detected A 72303-8) On board controls acceptable with C Yes Line (test code = 3574) Lab Interpretation (test code = Abnormal 60621-9) [facility] MOLECULAR [id number] 14:58:03 Test Item Value Reference Range Interpretation Comments POCT Molecular FluA (test code = Negative Negative 46238-2) POCT Molecular FluB (test code = Negative Negative 86365-5) Lab Interpretation (test code = Normal 69336-4) [facility] MOLECULAR [id number] 14:51:54 Test Item Value Reference Range Interpretation Comments POCT Molecular Strep (test code = Negative Negative 14958-8) Lab Interpretation (test code = Normal 41552-0) [facility] SARS-COV-2 ANTIGEN (BINAX NOW)2022-02-05 19:36:00 Test Item Value Reference Range Interpretation Comments POCT SARS-COV-2 ANTIGEN (test Not Detected Not Detected code = 62822-3) On board controls acceptable Yes with C Line (test code = 3574) [facility] MOLECULAR [id number] 19:27:20 Test Item Value Reference Range Interpretation Comments POCT Molecular FluA (test code = Negative Negative 56231-0) POCT Molecular FluB (test code = Negative Negative 76767-6) Lab Interpretation (test code = Normal 21509-0) [facility] MOLECULAR [id number] 19:16:44 Test Item Value Reference Range Interpretation Comments POCT Molecular Strep (test code = Positive Negative A 98310-5) Lab Interpretation (test code = Abnormal 12466-5) [facility]. METABOLIC PANEL (11280)2021-11-27 04:07:20 Test Item Value Reference Range Interpretation Comments NA (test code = 138 mmol/L 135-145 3261562107) K (test code = 4.7 mmol/L 3.5-5 5703433591) CL (test code = 101 mmol/L 98-108 1068385126) CO2 TOTAL (test code = 30 mmol/L 23-31 0012526956) AGAP (test code = 2-16 3261772151) BUN (test code = 20 mg/dL 7-23 9757735578) GLUCOSE (test code = 162 mg/dL 70-110 H 1665084415) CREATININE (test code = 0.92 mg/dL 0.5-1.04 4870847798) TOTAL BILI (test code = 0.4 mg/dL 0.1-1.7 4846201329) CALCIUM (test code = 9.4 mg/dL 8.6-10.6 6752062888) T PROTEIN (test code = 6.8 g/dL 6.3-8.2 3826577129) ALBUMIN (test code = 4.0 g/dL 3.5-5 8983294101) ALK PHOS (test code = 86 U/L 34-122 9114944441) ALTv (test code = 23 U/L 5-35 1742-6) AST(SGOT) (test code = 27 U/L 13-40 8171591057) eGFR (test code = mL/min/1.73m2 2148787742) MARIE (test code = MARIE) Association of [...] tests). Lab Interpretation Abnormal (test code = 97759-0) [facility]. METABOLIC PANEL (55860)2021-11-27 04:07:20 Test Item Value Reference Range Interpretation Comments NA (test code = 138 mmol/L 135-145 3100706970) K (test code = 4.7 mmol/L 3.5-5.0 0657379742) CL (test code = 101 mmol/L 98-108 6024704494) CO2 TOTAL (test code = 30 mmol/L 23-31 2698534318) AGAP (test code = 2-16 8133504795) BUN (test code = 20 mg/dL 7-23 0584485512) GLUCOSE (test code = 162 mg/dL 70-110 H 2538743903) CREATININE (test code = 0.92 mg/dL 0.50-1.04 9390919382) TOTAL BILI (test code = 0.4 mg/dL 0.1-1.9 8294979734) CALCIUM (test code = 9.4 mg/dL 8.6-10.6 9231360536) T PROTEIN (test code = 6.8 g/dL 6.3-8.2 4417103148) ALBUMIN (test code = 4.0 g/dL 3.5-5.0 6453214875) ALK PHOS (test code = 86 U/L 34-122 8836523735) ALTv (test code = 23 U/L 5-35 2-6) AST(SGOT) (test code = 27 U/L 13-40 7499828881) eGFR (test code = mL/min/1.73m2 5882299263) MARIE (test code = MARIE) Association of [...] tests). Lab Interpretation Abnormal (test code = 08627-3) [facility] [id number] 15:50:00 Test Item Value Reference Range Interpretation Comments POC glucose (test code 118 mg/dL 65-99 H Opera tor Name: DUBALE = 04621-4) MARSHALLiXpertONEN Device ID: [id number] able: [facility] Notified fire prevention forester Interpretation Abnormal (test code = 67231-5) [facility] [id number] 15:50:00 Test Item Value Reference Range Interpretation Comments POC glucose (test code 118 mg/dL 65-99 H Opera tor Name: DUBALE = 40904-1) MARSHALLWD MAKONEN Device ID: [id number] able: [facility] Notified fire prevention forester Interpretation Abnormal (test code = 69220-4) [facility] [id number] 07:59:00 Test Item Value Reference Range Interpretation [...] (Holland Rivera al, N Engl J Med 2014;370(14):6596-8309) The normal value (reference range) for this assay is negative. COLOGUARD RE-SCREENING RECOMMENDATION: Periodic colorectal cancer screening is an important part of preventive healthcare for asymptomatic individuals at average risk for colorectal cancer. ?Following a negative Cologuard result, the [place] [employer] and U.S. Multi-Society Task Force?screening guidelines recommend a Cologuard re-screening interval of 3 years. References: [place] [employer] Guideline for Colorectal Cancer Screening: https://www.cancer.org/ cancer/abmyg-cneewj-qew cer/detection-diagnosis -staging/acs-recommenda tions.html.; Alexsander DK, Hector CR, Vidhya PaezK, Colorectal Cancer Screening: Recommendations for Physicians and Patients from the U.S. Multi-Society Task Force on Colorectal Cancer Screening , Am J Gastroenterology 2017; 112:6550-2986. TEST DESCRIPTION: Composite algorithmic analysis of stool [...] Chen et al, N Engl J Med 2014;370(14):9292-6991. ) Cologuard may produce a false negative or false positive result (no colorectal cancer or?precancerous polyp present at colonoscopy follow up). A negative Cologuard test result does not guarantee the absence of CRC or advanced adenoma (pre-cancer). The current Cologuard screening interval is every 3 years. ([place] [employer] and U.S. Multi-Society Task Force). Cologuard performance data in a 10,000 patient pivotal study using colonoscopy as the reference method can be accessed at the following location: [email or web address].[email or web address] ts. Additional description of the Cologuard test process, warnings and precautions can be found at [email or web address].[email or web address]. Resulting Agency [facility] (CLIA #:[id number]) Specimen Collected: 07/13/21 07:15 Last Resulted: 07/18/21 02:59 Received From: [facility] Result Received: 07/26/21 08:09 Lab Interpretation Normal (test code = 99350-5) [facility] Notes Date/Time Note Provider Source 2022-11-16 [facility] 21:46:40-00:00 noted 2022 [facility] 14:58:48-00:00 Attempted to contact patient , left message on voicemail asking her to call back with blood pressure readings and she would need to make appointment for medication changes. Electronically signed by Zara Guillaume MA at 3:02 PM CDT 2022 Formatting of this note might be differe nt from the original. Gayle Butler [facility] 13:27:29-00:00 Per pt BS and BP is still ru nning higher than normal and wants to know if provider would consider change medication. Electronically signed by Gayle Butler at 07/2022 1:29 PM CDT 2022-11-02 [facility] 08:57:36-00:00 Continue to log, will address at upcoming appt. 2022-11-01 Formatting of this note might be differe nt from the original. Terrance Blackburn [facility] 14:14:39-00:00 Patient is calling in to rep ort her blood pressure reading per patient this is high for her 139/93.Please advise Electronically signed by Terrance Blackburn 11/01/2022 2:15 PM CDT
[2022-11-22 20:36] LABS: Absolute Lymphocytes (CBC) 3.5 K/uL (0.7-4.9); Hematocrit 41.2 % (36.0-45.0); Lymphocytes % 33.2 % (15.3-44.8); MPV 8.8 fL (7.6-11.3); Platelets 270 thou/uL (152-406); RBC Red Blood Cell Count 5.28 M/uL (3.86-4.86)
[2022-11-22] MEDS ORDERED: NA CHLORIDE 0.9% 1,000 ML ONE (20:50)
[2022-11-22 20:51] LABS: Bilirubin Total 0.4 mg/dL (0.2-1.0)
[2022-11-22] MEDS ORDERED: MORPHINE 4 MG/ML SYR ONE (20:51)
[2022-11-22] MEDS ORDERED: ONDANSETRON 4 MG/2 ML VIAL ONE (20:51)
[2022-11-22 20:52] LABS: Albumin 3.5 g/dL (3.4-5.0); Protein, Total 8.1 g/dL (6.4-8.2)
[2022-11-22 20:52] LABS: Specific Gravity > 1.030 (1.005-1.030); Urine Bacteria None Seen /HPF (<20); Urine Bilirubin 1+ (Negative); Urine Blood Negative (Negative); Urine Clarity Extremely Turbid (Clear); Urine Color Yellow (Yellow); Urine Glucose NEGATIVE (Negative); Urine Mucus 1+ /HPF (None Seen); Urine Protein 1+ (Negative); Urine RBC <5 /HPF (None Seen); Urine Urobilinogen 2+ (Normal); Urine pH 5.5 (5.0-7.0)
--- NOTE | 2022-11-22 21:25 | RAD REPORT ---
EXAM DESCRIPTION: CT - Stone Protocol - 11/22/2022 9:16 pm CLINICAL HISTORY: Flank pain. left flank pain COMPARISON: <Comparisons> TECHNIQUE: Axial images were obtained without oral or IV contrast. Lack of contrast limits solid org an and vascular assessment. The tsiod-db-dasp spans the entirety of the system partially obscuring uppermost abdomen and lung bases. Coronal reformatted images were obtained and reviewed. All CT scans are performed using dose optimization technique as appropriate and may include automated exposure control or mA/KV adjustment according to patient size. FINDINGS: The lower lung duggan are clear. Imaged portions of the liver and spleen show no suspicious findings on non-contrast imaging.Cholecyst ectomy clips. The pancreas and adrenal glands are normal. No pathologic lymphadenopathy in the abdome n or pelvis. No urinary tract stones or obstructive uropathy. No bowel obstruction, free air, free fluid or abscess. Normal appendix noted.Prominent sigmoid coloni c diverticulosis without diverticulitis. There is an unusual hyperdense serpiginous structure in the central abdomen deep to the umbilical region, uncertain etiology. Mild lumbar degenerative changes are present. IMPRESSION: No urinary tract stones or obstructive uropathy. Prominent sigmoid diverticulosis coli without diverticulitis. Mild lumbar degenerative changes.
[2022-11-22] MEDS ORDERED: CYCLOBENZAPRINE 10 MG TAB ONE (22:17)
[2022-11-22] MEDS ORDERED: KETOROLAC 30 MG/ML INJ ONE (22:18)
[2022-11-22] MEDS ORDERED: LIDOCAINE 4% PATCH ONE (22:20)
--- NOTE | 2022-11-22 23:54 | ER ---
Nurse's Notes [facility] Name: Amy Montalvo Age: 67 yrs Sex: Female : 1955 Arrival Date: 11/22/2022 Time: 19:42 Bed 19 Private MD: Diagnosis: Dorsalgia, unspecified;Abdominal pain, unspecified Presentation: 11/22 19:48 Chief complaint: Patient states: Back pain for a week, getting worse. Seems to be more nj1 painful on the left side than the right. Took a meloxicam last night but did not seem to help. Coronavirus screen: Vaccine status: Patient reports receiving the 2nd dose of the covid vaccine. Ebola Screen: Patient denies travel to an Ebola-affected area in the 21 days before illness onset. Initial Sepsis Screen: Does the patient meet any 2 criteria? HR > 90 bpm. No. Patient's initial sepsis screen is negative. Does the patient have a suspected source of infection? No. Patient's initial sepsis screen is negative. Risk Assessment: Do you want to hurt yourself or someone else? Patient reports no desire to harm self or others. Onset of symptoms was November 15, 2022. 19:48 Method Of Arrival: Ambulatory nj1 19:48 Acuity: FARIDA 3 nj1 Historical: - Allergies: 19:50 Demerol; nj1 19:50 Dilaudid; nj1 19:50 Flagyl; nj1 19:50 Lisinopril; nj1 19:50 PENICILLINS; nj1 - PMHx: 19:50 Diabetes - NIDDM; Diverticulitis; Hyperlipidemia; Hypertension; Sleep Apnea; nj1 - PSHx: 19:50 bowel resection; section; nj1 - Immunization history:: Client reports receiving the 2nd dose of the Covid vaccine. - Social history:: Smoking status: Patient denies any tobacco usage or history of. Screenin:10 [facility] ED Fall Risk Assessment (Adult) History of falling in the last 3 months, fu including since admission No falls in past 3 months (0 pts). Abuse screen: Denies threats or abuse. Nutritional screening: No deficits noted. Tuberculosis screening: No symptoms or risk factors identified. Assessment: 20:09 General: Appears uncomfortable. Pain: Complains of pain in back. Neuro: Level of fu Consciousness is awake, alert, obeys commands, Oriented to person, place, time, situation, Moves all extremities. Gait is steady, Speech is normal. : Denies burning with urination, pain. 21:00 Reassessment: Patient and/or family updated on plan of care and expected duration. Pain fu level reassessed. Patient is alert, oriented x 3, equal unlabored respirations, skin warm/dry/pink. 22:02 Reassessment: Patient and/or family updated on plan of care and expected duration. Pain fu level reassessed. Patient is alert, oriented x 3, equal unlabored respirations, skin warm/dry/pink. assisted to the restroom. 23:12 Reassessment: Patient and/or family updated on plan of care and expected duration. Pain fu level reassessed. Patient is alert, oriented x 3, equal unlabored respirations, skin warm/dry/pink. Vital Signs: 19:48 BP 132 / 88; Pulse 103; Resp 18; Pulse Ox 94% ; Weight 89.81 kg; Height 5 ft. 7 in. ; nj1 Pain 9/10; 20:15 BP 117 / 76; Pulse 100; Pulse Ox 95% ; fu 20:45 BP 126 / 82; Pulse 99; Resp 16; Pulse Ox 99% ; Pain 8/10; fu 21:19 Pain 7/10; fu 21:30 BP 139 / 68; Pulse 92; Pulse Ox 92% ; fu 22:00 BP 122 / 78; Pulse 98; Resp 16; Pulse Ox 94% ; fu 23:00 BP 123 / 85; Pulse 107; Pulse Ox 95% ; fu 19:48 Body Mass Index 31.01 (89.81 kg, 170.18 cm) nj1 19:48 Pain Scale: Adult nj1 20:45 Pain Scale: Adult fu 21:19 Pain Scale: Adult fu ED Course: 19:45 Patient arrived in ED. rg4 19:50 Triage completed. nj1 19:51 Arm band placed on right wrist. nj1 19:54 Akira Patel PA is PHCP. cp 19:54 Steph Barbour MD is Attending Physician. cp 20:05 Onur Ochoa, AGUEDA is Primary Nurse. fu 20:20 Inserted saline lock: 20 gauge in left forearm, using aseptic technique. fu 20:25 CBC with Diff Sent. fu 20:25 CMP Sent. fu 20:25 Lipase Sent. fu 20:43 Urine W/Microscopic (UAM) Sent. mb9 21:10 Bed in low position. Call light in reach. Side rails up X 1. Pulse ox on. NIBP on. fu 21:18 CT Stone Protocol In Process Unspecified. EDMS 11/23 00:15 No provider procedures requiring assistance completed. fu 00:15 IV discontinued, bleeding controlled, Pressure dressing applied. fu Administered Medications: 11/22 20:49 Drug: Ondansetron IVP 4 mg Route: IVP; Site: left forearm; fu 21:49 Follow up: Response: No adverse reaction fu 20:49 Drug: morphine IVP or IV 4 mg Route: IVP; Infused Over: 4 mins; Site: left forearm; fu 21:19 Follow up: Pain 10/21 Adult fu 20:49 Drug: NS 0.9% IV 500 ml Route: IV; Rate: bolus; Site: left forearm; fu 21:43 Follow up: IV Intake: 500ml fu 21:43 Drug: NS 0.9% IV 500 ml Route: IV; Rate: 100 ml/hr; Site: left forearm; fu 22:16 Drug: Lidoderm Topical Patch 5 % (700 mg/patch) 1 patches {Note: placed to left flank.} fu Route: Topical; Site: affected area; 22:16 Drug: Ketorolac IVP 15 mg Route: IVP; Site: left forearm; fu 22:18 Drug: Cyclobenzaprine PO 10 mg Route: PO; fu Medication: 11/23 00:15 VIS not applicable for this client. fu Intake: 11/22 21:43 IV: 500ml; Total: 500ml. fu Outcome: 23:53 Discharge ordered by MD. ortiz 11/23 00:15 Discharged to home ambulatory, with family. fu Condition: stable Discharge instructions given to patient, Instructed on discharge instructions, follow up and referral plans. Demonstrated understanding of instructions, follow-up care, medications, Prescriptions given X 2. 00:16 Patient left the ED. fu Signatures: Dispatcher [employer] EDMS Akira Patel PA PA cp Garcia, Rubi rg4 Onur Ochoa RN RN fu Breneman, Mary Beth RN RN mb9 Gabriella Paige RN RN nj1
--- NOTE | 2022-11-22 23:54 | EDPHYS ---
Physician Documentation [facility] Name: Amy Montalvo Age: 67 yrs Sex: Female : 1955 Arrival Date: 11/22/2022 Time: 19:42 Bed 19 Private MD: ED Physician Steph Barbour HPI: 11/22 20:00 This 67 yrs old Black Female presents to ER via Ambulatory with complaints of Back Pain.cp 20:00 The patient presents with pain that is acute, with no known mechanism of injury. The cp symptoms are located in the mid back area, left worse than right. Onset: The symptoms/episode began/occurred 1 week(s) ago, and became worse today. The pain does not radiate. Associated signs and symptoms: Pertinent positives: constipation, but took OTC medication and had BM yesterday, Pertinent negatives: abdominal pain, chest pain, fever, incontinence, numbness, weakness, diarrhea. Severity of symptoms: in the emergency department the symptoms are unchanged, despite home interventions. Historical: - Allergies: 19:50 Demerol; nj1 19:50 Dilaudid; nj1 19:50 Flagyl; nj1 19:50 Lisinopril; nj1 19:50 PENICILLINS; nj1 - PMHx: 19:50 Diabetes - NIDDM; Diverticulitis; Hyperlipidemia; Hypertension; Sleep Apnea; nj1 - PSHx: 19:50 bowel resection; section; nj1 - Immunization history:: Client reports receiving the 2nd dose of the Covid vaccine. - Social history:: Smoking status: Patient denies any tobacco usage or history of. ROS: 20:05 Constitutional: Negative for body aches, chills, fever, poor PO intake. cp 20:05 Eyes: Negative for injury, pain, redness, and discharge. cp 20:05 ENT: Negative for drainage from ear(s), ear pain, sore throat, difficulty swallowing, difficulty handling secretions. 20:05 Neck: Negative for pain with movement, pain at rest, stiffness. 20:05 Cardiovascular: Negative for chest pain, edema, palpitations. 20:05 Respiratory: Negative for cough, shortness of breath, wheezing. 20:05 Abdomen/GI: Negative for abdominal pain, vomiting, diarrhea, constipation, anorexia, black/tarry stool, rectal bleeding, bowel incontinence. 20:05 Back: Positive for pain at rest, pain with movement, of the mid back area, left worse than right. 20:05 : Negative for urinary symptoms, hematuria, bladder incontinence. 20:05 Skin: Negative for rash. 20:05 Neuro: Negative for altered mental status, dizziness, headache, numbness, tingling, weakness. 20:05 All other systems are negative. Exam: 20:10 Constitutional: The patient appears in no acute distress, alert, awake, cp non-diaphoretic, non-toxic, well developed, well nourished, uncomfortable. 20:10 Head/Face: Normocephalic, atraumatic. cp 20:10 Eyes: Periorbital structures: appear normal, Conjunctiva: normal, no exudate, no injection, Sclera: no appreciated abnormality, Lids and lashes: appear normal, bilaterally. 20:10 ENT: External ear(s): are unremarkable, Nose: is normal, Mouth: Lips: moist, Oral mucosa: pink and intact, moist, Posterior pharynx: is normal, airway is patent, no erythema, no exudate. 20:10 Neck: ROM/movement: is normal, is supple, without pain, no range of motions limitations. 20:10 Chest/axilla: Inspection: normal, Palpation: is normal, no crepitus, no tenderness. 20:10 Cardiovascular: Rate: tachycardic, Rhythm: regular, Edema: is not appreciated, JVD: is not appreciated. 20:10 Respiratory: the patient does not display signs of respiratory distress, Respirations: normal, no use of accessory muscles, no retractions, labored breathing, is not present, Breath sounds: are clear throughout, no decreased breath sounds, no stridor, no wheezing. 20:10 Abdomen/GI: Inspection: abdomen appears normal, Bowel sounds: active, all quadrants, Palpation: abdomen is soft and non-tender, in all quadrants. 20:10 Back: pain, that is moderate, of the mid back area, ROM is painful, with all movement. 20:10 Skin: no rash present. 20:10 Neuro: Orientation: to person, place \T\ time. Mentation: is normal, Motor: moves all fours, strength is normal, Sensation: is normal, Gait: is steady, Deep tendon reflexes are 2+ (normal) in the right patellar, right Achilles, left patellar and left Achilles. Vital Signs: 19:48 BP 132 / 88; Pulse 103; Resp 18; Pulse Ox 94% ; Weight 89.81 kg; Height 5 ft. 7 in. ; nj1 Pain 9/10; 20:15 BP 117 / 76; Pulse 100; Pulse Ox 95% ; fu 20:45 BP 126 / 82; Pulse 99; Resp 16; Pulse Ox 99% ; Pain 8/10; fu 21:19 Pain 7/10; fu 21:30 BP 139 / 68; Pulse 92; Pulse Ox 92% ; fu 22:00 BP 122 / 78; Pulse 98; Resp 16; Pulse Ox 94% ; fu 23:00 BP 123 / 85; Pulse 107; Pulse Ox 95% ; fu 19:48 Body Mass Index 31.01 (89.81 kg, 170.18 cm) nj1 19:48 Pain Scale: Adult nj1 20:45 Pain Scale: Adult fu 21:19 Pain Scale: Adult fu MDM: 19:55 Patient medically screened. 21:00 Differential diagnosis: arthritis, Neoplasm Obesity Pyelonephritis ruptured disc, cp Ureterolithiasis pancreatitis, choledocholithiasis. 23:52 Data reviewed: vital signs, nurses notes, lab test result(s), radiologic studies, CT cp scan. 23:52 I considered the following discharge prescriptions or medication management in the emergency department Medications were administered in the Emergency Department. See MAR. Care significantly affected by the following chronic conditions: Diabetes, Hypertension, Obesity. Counseling: I had a detailed discussion with the patient and/or guardian regarding: the historical points, exam findings, and any diagnostic results supporting the discharge/admit diagnosis, lab results, radiology results, the need for outpatient follow up, a family practitioner, to return to the emergency department if symptoms worsen or persist or if there are any questions or concerns that arise at home. Response to treatment: the patient's symptoms have markedly improved after treatment, and as a result, I will discharge patient. Special discussion: Based on the patient's Hx, exam, and Dx evaluation, there is no indication for emergent surgery or inpatient Tx. It is understood by the patient/guardian that if the Sx's persist or worsen they need to return immediately for re-evaluation. Special discussion: results of CT showing mass of deep abdomen. Recommend f/u with pcp and GI. 11/22 19:54 Order name: Urine W/Microscopic (UAM); Complete Time: 20:53 cp 11/22 20:05 Order name: CBC with Diff; Complete Time: 20:53 cp 11/22 20:05 Order name: CMP; Complete Time: 20:53 cp 11/22 20:05 Order name: Lipase; Complete Time: 20:53 cp 11/22 20:54 Order name: CT Stone Protocol; Complete Time: 21:59 cp 11/22 22:00 Interpretation: Report reviewed. 11/22 20:05 Order name: IV Saline Lock; Complete Time: 20:25 cp 11/22 20:05 Order name: Labs collected and sent; Complete Time: 20:25 cp Administered Medications: 20:49 Drug: Ondansetron IVP 4 mg Route: IVP; Site: left forearm; fu 21:49 Follow up: Response: No adverse reaction fu 20:49 Drug: morphine IVP or IV 4 mg Route: IVP; Infused Over: 4 mins; Site: left forearm; fu 21:19 Follow up: Pain /10 Adult fu 20:49 Drug: NS 0.9% IV 500 ml Route: IV; Rate: bolus; Site: left forearm; fu 21:43 Follow up: IV Intake: 500ml fu 21:43 Drug: NS 0.9% IV 500 ml Route: IV; Rate: 100 ml/hr; Site: left forearm; fu 22:16 Drug: Lidoderm Topical Patch 5 % (700 mg/patch) 1 patches {Note: placed to left flank.} fu Route: Topical; Site: affected area; 22:16 Drug: Ketorolac IVP 15 mg Route: IVP; Site: left forearm; fu 22:18 Drug: Cyclobenzaprine PO 10 mg Route: PO; fu Disposition Summary: 11/22/22 23:53 Discharge Ordered Location: Home cp Problem: new cp Symptoms: have improved cp Condition: Stable cp Diagnosis - Dorsalgia, unspecified cp - Abdominal pain, unspecified cp Followup: cp - With: Private Physician - When: 2 - 3 days - Reason: Recheck today's complaints Discharge Instructions: - Discharge Summary Sheet cp - Abdominal Pain, Adult cp - Acute Back Pain, Adult cp Forms: - Medication Reconciliation Form cp - Thank You Letter cp - Antibiotic Education cp - Prescription Opioid Use cp - Patient Portal Instructions cp - Leadership Thank You Letter cp Prescriptions: - Cyclobenzaprine 10 mg Oral Tablet - take 1 tablet by ORAL route every 8 hours As needed; 30 tablet; Refills: 0, cp Product Selection Permitted - Diclofenac Sodium 75 mg Oral Tablet Sustained Release - take 1 tablet by ORAL route 2 times per day; 30 tablet; Refills: 0, Product cp Selection Permitted Signatures: Dispatcher [employer] EDMS Akira Patel PA PA cp Umadhay, Felix, RN RN Gabriella Niño RN RN nj1 Corrections: (The following items were deleted from the chart) 21:05 20:06 Abdomen Pelvis W Con+[id number].RAD.BRZ ordered. EDTN EDMS 11/23 17:43 11/22 23:52 Special discussion: results of CT showing mass of abdomen in umbilical cp area. Recommend f/u with pcp and GI. cp
[2022-11-23 01:02] VITALS: BP 123/85; O2SAT 95
== END 2022-11-23 00:16 | disposition home or self-care (01) ==
LOC: ER 19:42
DX: M54.9 Dorsalgia, unspecified (principal); R10.9 Unspecified abdominal pain; Z88.0 Allergy status to penicillin; Z88.5 Allergy status to narcotic agent; Z88.8 Allergy status to other drugs, medicaments and biological substances
CPT/HCPCS: 85025; 81001; 36415; 83690; 80053; 76377; 74176; 96375; 96374; 99284; J2001; J2405; J7040

== ENCOUNTER 2023-04-04 16:24 | Inpatient (IN) | payer OTHER ==
--- OUTSIDE RECORDS SUMMARY | 2023-04-04 16:27 | XMS REPORT | Clinical Summary ---
Author Name Unknown Organization [facility] Address [address] [place] [address] Care Team Providers Care Mattress Stuffer Name Role Phone Kristin Reyes MD Primary Care Provider [phone] Allergies Active Allergy Reactions Criticality Noted Date Comments Amlodipine 10/06/2019 Metronidazole Hcl 10/06/2019 Hydromorphone 10/06/2019 Lisinopril 10/06/2019 Losartan 10/06/2019 Penicillins 10/06/2019 Medications Medication Sig Dispensed Refills Start Date End Date Status magnesium 200 mg tab magnesium 0 Acti ve acetaminophen-codeine (TYLENOL #3) 300 mg-30 mg tablet Take 1 tablet by mouth as needed. 0 05/18/2019 Active acetaminophen-codeine (TYLENOL #3) 300 mg-30 mg tablet TAKE 1 TABLET BY MOUTH EVERY 4 HOURS NEEDED FOR PAIN SCALE 4 6 0 05/19/2019 Active albuterol (PROVENTIL,VENTOLIN) 2.5 mg/3 mL (0.083%) nebulizer solution USE 1 VIAL IN NEBULIZER EVERY 4 HOURS NEEDED FOR WHEEZING FOR SHORTNESS OF BREATH 0 02/04/2019 Active atropine 1% ophthalmic solution atropine 1 % eye drops 0 Active atorvastatin (LIPITOR) 10 mg tablet Take 10 mg by mouth. 0 Active benzonatate (TESSALON) 200 mg capsule TAKE 1 CAPSULE BY MOUTH THREE TIMES DAILY NEEDED FOR COUGH 0 06/11/2019 Active cyanocobalamin (VITAMIN B-12) 500 mcg tablet Take 500 mcg by mouth. 0 06/04/2017 Active FOLBEE 2.5-25-1 mg tab TAKE 1 TABLET BY MOUTH ONCE DAILY 0 10/02/2019 Active cyclobenzaprine (FLEXERIL) 5 mg tablet 0 08/19/2019 Active RESTASIS 0.05 % ophthalmic emulsion 0 11/25/2018 Activ e dapagliflozin (Farxiga) 10 mg tab Farxiga 10 mg tablet 1 tablet daily 0 Active dicyclomine (BENTYL) 20 mg tablet Take 20 mg by mouth. 0 05/20/2019 Active dulaglutide (TRULICITY) 1.5 mg/0.5 mL injection Inject 1.5 mg under the skin. 0 01/19/2019 Active VITAMIN D2 1,250 mcg (50,000 unit) capsule TAKE ONE CAPSULE BY MOUTH EVERY 2 WEEKS WITH FOOD 0 08/29/2019 Active fluticasone propionate (FLONASE) 50 mcg/spray nasal spray Inhale 2 sprays into each nostril. 0 06/11/2019 Active glimepiride (AMARYL) 2 mg tablet 0 11/09/2018 Active metFORMIN (GLUCOPHAGE) 1000 mg tablet TAKE 1 TABLET BY MOUTH TWICE DAILY WITH MEALS 0 09/14/2019 Active metoprolol succinate (TOPROL XL) 25 mg 24 hr tablet TAKE 1 TABLET BY MOUTH ONCE DAILY 0 09/07/2019 Active NIFEdipine (ADALAT CC) 60 MG 24 hr tablet TAKE 1 TABLET BY MOUTH ONCE DAILY 0 12/09/2018 Active omeprazole (PriLOSEC) 40 MG capsule TAKE 1 CAPSULE BY MOUTH ONCE DAILY 0 11/02/2018 Active ondansetron (ZOFRAN-ODT) 4 mg disintegrating tablet DISSOLVE 1 TABLET IN MOUTH EVERY 8 HOURS NEEDED FOR NAUSEA AND VOMITING 0 05/19/2019 Active tiZANidine (ZANAFLEX) 2 mg tablet TAKE 1 2 TO 1 (ONE HALF TO ONE) TABLET BY MOUTH EVERY 8 HOURS NEEDED FOR MUSCLE SPASM OR PAIN 0 07/09/2019 Active coenzyme Q10 100 mg capsule Take 100 mg by mouth. 0 06/11/2019 Active repaglinide (PRANDIN) 0.5 mg tablet Take 0.5 mg by mouth 2 (two) times a day before meals. 0 Active ferrous sulfate 325 (65 FE) MG EC tabletIndications:Oth er iron deficiency anemia Take 1 tablet (325 mg) by mouth at bedtime. 180 tablet 1 12/15/2019 Active Active Problems Patient Care Coordination No te Formatting of this note migh t be different from the original. Patient tested for Covid-19 10/04/2019 Not Detected. Problem Noted Date Diagnosed Date Vitamin B12 deficiency 10/10/2019 Other iron [...] Years Used Date Smoking Tobacco: Former Cigarettes Q uit: 10/05/1989 Smokeless Tobacco: Never Alcohol Use Standard Drinks/Week Comments Not Currently 0 (1 standard drink = 0.6 oz pur e alcohol) Sex and Gender Information Value Date Recorded Sex Assigned at Female 10/04/2019 11:22 AM CDT Gender Identity Female 10/04/2019 11:22 AM CDT Sexual Orientation Straight 10/04/2019 11 :22 AM CDT Obstetrics History Para Term AB IAB SAB Ectopic Multiple Livin g Live Births 2 2 Date Outcome GA Total Labor Labor/2nd/3rd Weight Sex Delivery Anes PTL Brandy A1 A5 Name Cl in Plan of Treatment Health Maintenance Due Date Last Done Comments COVID-19 Vaccination (#1) 05/18/1956 Care Teams Mattress Stuffer Relationship Specialty Start Date End Date Kristin Reyes MD [address] [place] [id number] PCP - General Medical Oncology 09/22/19
[2023-04-04] MEDS ORDERED: ONDANSETRON 4 MG/2 ML VIAL ONE ×2 (18:30→21:22)
[2023-04-04] MEDS ORDERED: FENTANYL CITR 100 MCG/2 ML ONE (18:31)
[2023-04-04] MEDS ORDERED: NA CHLORIDE 0.9% 1,000 ML ONE ×2 (18:31→21:22)
[2023-04-04 19:09] LABS: Absolute Lymphocytes (CBC) 3.2 K/uL (0.7-4.9); Hematocrit 42.7 % (36.0-45.0); Lymphocytes % 34.3 % (15.3-44.8); MPV 8.8 fL (7.6-11.3); Platelets 284 thou/uL (152-406); RBC Red Blood Cell Count 5.27 M/uL (3.86-4.86)
[2023-04-04 19:31] LABS: Albumin 3.5 g/dL (3.4-5.0); Bilirubin Total 0.5 mg/dL (0.2-1.0); Potassium 3.9 mEq/L (3.5-5.1); Protein, Total 7.9 g/dL (6.4-8.2)
--- NOTE | 2023-04-04 20:59 | ER ---
Nurse's Notes [facility] Name: Amy Montalvo Age: 67 yrs Sex: Female : 1955 Arrival Date: 04/04/2023 Time: 16:24 Bed 18 Private MD: Diagnosis: Small bowel obstruction Presentation: 04/04 16:48 Chief complaint: Patient states: belly feels like a ball of fire and its very bloated. ko1 LBM earlier this week which is her normal. Coronavirus screen: At this time, the client does not indicate any symptoms associated with coronavirus-19. Ebola Screen: No symptoms or risks identified at this time. Initial Sepsis Screen: Does the patient meet any 2 criteria? No. Patient's initial sepsis screen is negative. Does the patient have a suspected source of infection? No. Patient's initial sepsis screen is negative. Risk Assessment: Do you want to hurt yourself or someone else? Patient reports no desire to harm self or others. Onset of symptoms is unknown. 16:48 Method Of Arrival: Ambulatory ko1 16:48 Acuity: FARIDA 3 ko1 Triage Assessment: 16:50 General: Appears in no apparent distress. uncomfortable, ill, Behavior is calm, ko1 cooperative, appropriate for age. Pain: Complains of pain in epigastric area and left lower quadrant. GI: Reports lower abdominal pain, upper abdominal pain, bloating, cramping, nausea, vomiting. Historical: - Allergies: 16:50 Demerol; ko1 16:50 Flagyl; ko1 16:50 Lisinopril; ko1 16:50 Dilaudid; ko1 16:50 PENICILLINS; ko1 - PMHx: 16:50 Diabetes - NIDDM; Hyperlipidemia; Diverticulitis; Hypertension; Sleep Apnea; ko1 - PSHx: 16:50 bowel resection; section; ko1 - Immunization history:: Adult Immunizations unknown. - Social history:: Smoking status: Patient denies any tobacco usage or history of. Screenin:00 [facility] ED Fall Risk Assessment (Adult) History of falling in the last 3 months, kc6 including since admission No falls in past 3 months (0 pts) Confusion or Disorientation No (0 pts) Intoxicated or Sedated No (0 pts) Impaired Gait No (0 pts) Mobility Assist Device Used No (0 pt) Altered Elimination No (0 pt) Score/Fall Risk Level 0 - 2 = Low Risk. Abuse screen: Denies threats or abuse. Denies injuries from another. Nutritional screening: No deficits noted. Tuberculosis screening: No symptoms or risk factors identified. Assessment: 17:00 General: Appears in no apparent distress. comfortable, well groomed, well developed, kc6 Behavior is calm, cooperative, appropriate for age, Reports feeling ill for 2-3 days. Pain: Complains of pain in epigastric area, umbilical area and right lower quadrant. Neuro: Level of Consciousness is awake, alert, obeys commands, Oriented to person, place, time, situation, Appropriate for age. Cardiovascular: Capillary refill < 3 seconds. Respiratory: Airway is patent Trachea midline Respiratory effort is even, unlabored, Respiratory pattern is regular, symmetrical. GI: Abdomen is round Bowel sounds present X 4 quads. Abd is soft X 4 quads Reports nausea, vomiting, Patient currently denies diarrhea. : No signs and/or symptoms were reported regarding the genitourinary system. EENT: No signs and/or symptoms were reported regarding the EENT system. Derm: No signs and/or symptoms reported regarding the dermatologic system. Skin is intact, is healthy with good turgor, Skin is pink, warm \T\ dry. Musculoskeletal: No signs and/or symptoms reported regarding the musculoskeletal system. Circulation, motion, and sensation intact. Capillary refill < 3 seconds, Range of motion: intact in all extremities. 18:00 Reassessment: Patient appears in no apparent distress at this time. No changes from kc6 previously documented assessment. Patient and/or family updated on plan of care and expected duration. Pain level reassessed. Patient is alert, oriented x 3, equal unlabored respirations, skin warm/dry/pink. 19:00 General: Appears in no apparent distress. comfortable, well groomed, well developed, pf1 Behavior is calm, cooperative, appropriate for age, quiet, Reports feeling ill for 1-2 days. 19:00 Pain: Complains of pain in right lower quadrant and umbilical area and left lower pf1 quadrant. Neuro: No deficits noted. Level of Consciousness is awake, alert, obeys commands, Oriented to person, place, time, situation. Cardiovascular: No deficits noted. Capillary refill < 3 seconds Patient's skin is warm and dry. Respiratory: No deficits noted. Airway is patent Respiratory effort is even, unlabored, Respiratory pattern is regular, symmetrical. GI: Abdomen is round non-distended, Bowel sounds present X 4 quads. Abd is soft X 4 quads Reports lower abdominal pain. GI: Reports lower abdominal pain, nausea, vomiting. : No deficits noted. No signs and/or symptoms were reported regarding the genitourinary system. EENT: No deficits noted. No signs and/or symptoms were reported regarding the EENT system. Derm: No deficits noted. No signs and/or symptoms reported regarding the dermatologic system. 20:00 Reassessment: Patient appears in no apparent distress at this time. Patient and/or pf1 family updated on plan of care and expected duration. Pain level reassessed. Patient is alert, oriented x 3, equal unlabored respirations, skin warm/dry/pink. 21:00 Reassessment: Patient appears in no apparent distress at this time. Patient and/or pf1 family updated on plan of care and expected duration. Pain level reassessed. Patient is alert, oriented x 3, equal unlabored respirations, skin warm/dry/pink. Patient states symptoms have improved. 04/05 14:57 Reassessment: Attempted to call report, nurse in room. Will call back. cp4 Vital Signs: 04/04 16:48 BP 133 / 94; Pulse 102; Resp 16; Temp 98; Pulse Ox 96% ; ko1 19:00 BP 145 / 87; Pulse 98; Resp 16; Pulse Ox 98% on R/A; Pain 6/10; pf1 20:00 BP 160 / 94; Pulse 95; Resp 18; Pulse Ox 96% on R/A; Pain 6/10; pf1 21:00 BP 151 / 98; Pulse 91; Resp 18; Pulse Ox 96% on R/A; Pain 6/10; pf1 19:00 Pain Scale: Adult pf1 20:00 Pain Scale: Adult pf1 21:00 Pain Scale: Adult pf1 ED Course: 16:27 Patient arrived in ED. im 16:28 Myrtle Farris PA-C is PHCP. sb4 16:28 Daniel Snyder MD is Attending Physician. sb4 16:50 Triage completed. ko1 16:50 Arm band placed on right wrist. Patient placed in waiting room, Patient notified of ko1 wait time. 17:00 Patient has correct armband on for positive identification. Placed in gown. Bed in low kc6 position. Call light in reach. Side rails up X 1. Client placed on continuous cardiac and pulse oximetry monitoring. NIBP monitoring applied. 17:00 Inserted saline lock: 20 gauge in left forearm, using aseptic technique. Blood kc6 collected. Patient maintains SpO2 saturation greater than 95% on room air. 19:00 Report given to AGUEDA Phillip. kc6 20:15 CT Abd/Pelvis - IV Contrast Only In Process Unspecified. EDMS 20:37 Blood Culture Adult (2) Sent. pf1 20:37 Urinalysis w/ reflexes Sent. pf1 20:58 Duc Dodson MD is Hospitalizing Provider. sb4 21:07 No provider procedures requiring assistance completed. pf1 21:07 Patient admitted, IV remains in place. pf1 22:50 Provided Education on: need for admit and NPO. pf1 04/05 07:12 Joe Hernández RN is Primary Nurse. rs5 10:10 Primary Nurse role handed off by Joe Hernández RN cp4 10:10 Tamra Florez is Primary Nurse. cp4 Administered Medications: 04/04 19:01 Drug: NS 0.9% IV 1000 ml IV at 1 bolus Per protocol; 1000 mL bolus Route: IV; Rate: 1 kc6 bolus; Site: left forearm; 20:00 Follow up: Response: No adverse reaction; IV Status: Completed infusion; IV Intake: pf1 1000ml 19:01 Drug: Ondansetron IVP 4 mg IVP once; over 2 minutes Route: IVP; Site: left forearm; kc6 20:00 Follow up: Response: No adverse reaction; Marked relief of symptoms pf1 19:01 Drug: fentaNYL (PF) IVP 25 mcg IVP once Route: IVP; Site: left forearm; kc6 20:00 Follow up: Response: No adverse reaction; Marked relief of symptoms; Pain is decreased; pf1 RASS: Alert and Calm (0) 21:31 Drug: Ondansetron IVP 4 mg IVP once; over 2 minutes Route: IVP; Site: left forearm; pf1 22:00 Follow up: Response: No adverse reaction; Marked relief of symptoms; Nausea is decreasedpf1 21:31 Drug: NS 0.9% IV 1000 ml IV at 75 ml/hr continuous Route: IV; Rate: 75 ml/hr; Site: pf1 left forearm; 21:35 Follow up: Response: No adverse reaction; IV Status: Infusion continued upon admission pf1 Medication: 21:07 VIS not applicable for this client. pf1 Intake: 20:00 IV: 1000ml; Total: 1000ml. pf1 Outcome: 20:59 Decision to Hospitalize by Provider. sb4 21:07 Admitted to ER Hold. Please see [facility] for further documentation. pf1 21:07 Condition: stable 21:07 Instructed on the need for admit, pf1 04/05 16:09 Admitted to Tele accompanied by tech, Report called to Edward brooke Condition: stable Instructed on the need for admit, Demonstrated understanding of instructions, 16:21 Patient left the ED. ds4 Signatures: Dispatcher [employer] EDMS Vasile Frederick ds4 Pearl Davenport RN RN kc6 Perla Treviño RN RN Myrtle Darnell, PA-C PA-C sb4 Ruthy Alex, RN RN pf1 Joe Hernández, RN RN rs5 Whit Herbert Christina cp4
--- NOTE | 2023-04-04 20:59 | EDPHYS ---
Physician Documentation [facility] Name: Amy Montalvo Age: 67 yrs Sex: Female : 1955 Arrival Date: 04/04/2023 Time: 16:24 Bed 18 Private MD: ED Physician Daniel Snyder HPI: 04/04 17:07 This 67 yrs old Black Female presents to ER via Ambulatory with complaints of Abdominal sb4 Pain, Vomiting. 17:07 The patient presents with abdominal pain that is diffuse. Onset: The symptoms/episode sb4 began/occurred last night. The symptoms do not radiate. Associated signs and symptoms: Pertinent positives: nausea and vomiting, constipation, Pertinent negatives: blood in stools, diarrhea, fever. The patient has experienced similar episodes in the past, a few times, today's symptoms are similar, to when the patient was apparently diagnosed with Diverticulitis. The patient has not recently seen a physician. Patient states that she ate peanuts a few days ago and now she is experiencing diffuse abdominal pain associated with nausea and vomiting. She states it feels like to her prior diverticulitis episodes. She denies any diarrhea, blood in her stools, or fever. Historical: - Allergies: 16:50 Demerol; ko1 16:50 Flagyl; ko1 16:50 Lisinopril; ko1 16:50 Dilaudid; ko1 16:50 PENICILLINS; ko1 - PMHx: 16:50 Diabetes - NIDDM; Hyperlipidemia; Diverticulitis; Hypertension; Sleep Apnea; ko1 - PSHx: 16:50 bowel resection; section; ko1 - Immunization history:: Adult Immunizations unknown. - Social history:: Smoking status: Patient denies any tobacco usage or history of. ROS: 17:07 Constitutional: Negative for fever, chills, and weight loss, sb4 17:07 Abdomen/GI: Positive for abdominal pain, nausea and vomiting, 17:07 All other systems are negative, Exam: 17:07 Constitutional: This is a well developed, well nourished patient who is awake, alert, sb4 and in no acute distress. Head/Face: Normocephalic, atraumatic. Eyes: Extra-ocular motions intact. Periorbital areas with no swelling, redness, or edema. ENT: Mucous membranes moist. Cardiovascular: Regular rate and rhythm with a normal S1 and S2. Respiratory: Lungs have equal breath sounds bilaterally, clear to auscultation and percussion. No rales, rhonchi or wheezes noted. No increased work of breathing, no retractions or nasal flaring. Abdomen/GI: Soft, non-tender, no distension. Skin: Warm, dry with normal turgor. Normal color with no rashes, no lesions, and no evidence of cellulitis. MS/ Extremity: Pulses equal, no cyanosis. Neurovascular intact. Full, normal range of motion. Neuro: Awake and alert, GCS 15, oriented to person, place, time, and situation. Motor strength 5/5 in all extremities. Sensory grossly intact. Vital Signs: 16:48 BP 133 / 94; Pulse 102; Resp 16; Temp 98; Pulse Ox 96% ; ko1 19:00 BP 145 / 87; Pulse 98; Resp 16; Pulse Ox 98% on R/A; Pain 6/10; pf1 20:00 BP 160 / 94; Pulse 95; Resp 18; Pulse Ox 96% on R/A; Pain 6/10; pf1 21:00 BP 151 / 98; Pulse 91; Resp 18; Pulse Ox 96% on R/A; Pain 6/10; pf1 19:00 Pain Scale: Adult pf1 20:00 Pain Scale: Adult pf1 21:00 Pain Scale: Adult pf1 MDM: 16:56 Patient medically screened. sb4 17:07 Differential diagnosis: appendicitis, diverticulitis. sb4 20:57 Data reviewed: vital signs, nurses notes, lab test result(s), radiologic studies, and sb4 as a result, I will admit patient. Consideration of Admission/Observation Patient was admitted/placed on observation. Management of patient was discussed with the following: Hospitalist: dr. dodson. Care significantly affected by the following chronic conditions: Diabetes, Hypertension. Counseling: I had a detailed discussion with the patient and/or guardian regarding the historical points, exam findings, and any diagnostic results supporting the discharge/admit diagnosis, the presence of at least one elevated blood pressure reading (>120/80) during this emergency department visit, lab results, radiology results, the need for further work-up and treatment in the hospital. 04/04 16:56 Order name: CBC with Diff; Complete Time: 19:15 sb4 04/04 16:56 Order name: CMP; Complete Time: 17:54 sb4 04/04 16:56 Order name: Lipase; Complete Time: 17:54 sb4 04/04 16:56 Order name: Urinalysis w/ reflexes; Complete Time: 21:47 sb4 04/04 16:57 Order name: Blood Culture Adult (2) sb4 04/04 16:57 Order name: Lactate w/ 2H reflex if indic.; Complete Time: 19:26 sb4 04/05 01:05 Order name: Urinalysis w/ reflexes EDMS 04/05 01:05 Order name: Basic Metabolic Panel EDMS 04/05 01:05 Order name: Basic Metabolic Panel EDMS 04/05 01:05 Order name: Magnesium EDMS 04/05 01:05 Order name: Magnesium EDMS 04/05 09:04 Order name: Glucose, Ancillary Testing; Complete Time: 17:54 EDMS 04/05 09:16 Order name: Phosphorus; Complete Time: 17:54 EDMS 04/05 09:16 Order name: Magnesium; Complete Time: 17:54 EDMS 04/05 13:34 Order name: Phosphorus; Complete Time: 17:54 EDMS 04/05 13:34 Order name: Magnesium; Complete Time: 17:54 EDMS 04/04 16:56 Order name: CT Abd/Pelvis - IV Contrast Only; Complete Time: 21:07 sb4 04/04 16:56 Order name: IV Saline Lock; Complete Time: 19:01 sb4 04/04 16:56 Order name: Labs collected and sent; Complete Time: 19:01 4 04/04 20:53 Order name: NPO; Complete Time: 21:44 sb4 Administered Medications: 19:01 Drug: NS 0.9% IV 1000 ml IV at 1 bolus Per protocol; 1000 mL bolus Route: IV; Rate: 1 kc6 bolus; Site: left forearm; 20:00 Follow up: Response: No adverse reaction; IV Status: Completed infusion; IV Intake: pf1 1000ml 19:01 Drug: Ondansetron IVP 4 mg IVP once; over 2 minutes Route: IVP; Site: left forearm; kc6 20:00 Follow up: Response: No adverse reaction; Marked relief of symptoms pf1 19:01 Drug: fentaNYL (PF) IVP 25 mcg IVP once Route: IVP; Site: left forearm; kc6 20:00 Follow up: Response: No adverse reaction; Marked relief of symptoms; Pain is decreased; pf1 RASS: Alert and Calm (0) 21:31 Drug: Ondansetron IVP 4 mg IVP once; over 2 minutes Route: IVP; Site: left forearm; pf1 22:00 Follow up: Response: No adverse reaction; Marked relief of symptoms; Nausea is decreasedpf1 21:31 Drug: NS 0.9% IV 1000 ml IV at 75 ml/hr continuous Route: IV; Rate: 75 ml/hr; Site: pf1 left forearm; 21:35 Follow up: Response: No adverse reaction; IV Status: Infusion continued upon admission pf1 Disposition Summary: 04/04/23 20:59 Hospitalization Ordered Notes: Hospitalization Status: Observation sb4 Provider: Duc Dodson sb4 Condition: Fair sb4 Problem: new sb4 Symptoms: are unchanged sb4 Bed/Room Type: Standard sb4 Location: Telemetry/MedSurg (Inpatient)(04/05/23 14:52) sp Room Assignment: 213(04/05/23 14:52) sp Diagnosis - Small bowel obstruction sb4 Discharge Instructions: - Discharge Summary Sheet pf1 Forms: - Medication Reconciliation Form sb4 - Leadership Thank You Letter sb4 - SBAR form pf1 Signatures: Dispatcher [employer] Khushbu Livingston James RN RN jb4 Pearl Davenport RN RN kc6 Perla Treviño RN RN ko1 Myrtle Farris PA-C PA-C sb4 Ruthy Alex RN RN pf1 Corrections: (The following items were deleted from the chart) 21: 20:59 Telemetry/MedSurg (observation) sb4 jb4 21: 20:59 sb4 jb4 04/05 14:52 04/04 21:07 [facility] ER HOLD jb4 sp 04/05 14:52 04/04 21:07 ERHOLD- jb4 sp
--- NOTE | 2023-04-04 21:01 | RAD REPORT ---
EXAM DESCRIPTION: CT - Abdomen Pelvis W Contrast - 04/04/2023 8:13 pm CLINICAL HISTORY: ABD PAIN COMPARISON: Abdomen Pelvis W Contrast dated 08/31/2022; Abdomen Pelvis W Contrast dated 3; Abdomen Pelvis W Contrast dated 01/21/2022; Abdomen Pelvis W Contrast dated 08/16/2020; Stone Pr otocol dated 11/22/2022 TECHNIQUE: Thin cut axial CT imaging of the abdomen and pelvis was performed following intravenous a dministration of 100 mL Isovue 370. Multiplanar reformats were generated and reviewed. All CT scans are performed using dose optimization technique as appropriate and may include automated exposure control or mA/KV adjustment according to patient size. FINDINGS: No suspicious findings in the lung bases. The liver, spleen, adrenal glands, and pancreas show no suspicious findings. Gallbladder was surgical ly removed. Symmetric renal function is seen with no hydronephrosis or suspicious renal mass. Dilated mid small bowel loops, extending into the lower abdomen and right flank. There is mild adjace nt fat stranding in the right flank, where there is a short segment of fecalization, followed by a lo op of small bowel that appears to be adherent to the anterior abdominal wall at the level of the umbi licus. Its configuration is unchanged since the Abdominal CTs of 02/2023 and 08/31/2022. . Serpiginou s linear densities along the mucosa in that region may relate to suture material, versus mineralizati on. This loop appears to be contiguous with nondistended small bowel extending posteriorly and right of midline, seen sagittal images series 203 images 69-64. Trace free ascitis in the pelvis. No free a ir, or fluid collections. Moderate colonic diverticulosis without evidence of acute diverticulitis. T he appendix is unremarkable. No hernia, mass or bulky lymphadenopathy. The urinary bladder is without significant finding. No suspicious bony findings. IMPRESSION: Findings suggestive of small bowel obstruction, with transition point at a loop of bowel that appears to be adherent to the anterior abdominal wall at the level of the umbilicus as describe d above. Trace free pelvic ascites. The findings were communicated to Merline Cortes on 04/04/2023 at 20:52 hours.
[2023-04-04] MEDS: NA CHLORIDE 0.9% 1,000 ML IV SCH (21:15)
[2023-04-04 21:45] LABS: Specific Gravity > 1.030 (1.005-1.030); Urine Bacteria None Seen /HPF (<20); Urine Bilirubin NEGATIVE (Negative); Urine Blood Negative (Negative); Urine Clarity Clear (Clear); Urine Color Yellow (Yellow); Urine Glucose 4+ (Over) (Negative); Urine Mucus Slight /HPF (None Seen); Urine Protein 1+ (Negative); Urine RBC <5 /HPF (None Seen); Urine Urobilinogen Normal (Normal); Urine pH 5.5 (5.0-7.0)
[2023-04-05] MEDS ORDERED: ONDANSETRON 4 MG/2 ML VIAL IV PRN (00:59)
--- NOTE | 2023-04-05 00:59 | P.HP ---
Certification for Inpatient Patient admitted to: Observation With expected LOS: <2 Midnights Practitioner: I am a practitioner with admitting privileges, knowledge of patient current condition, hospital course, and medical plan of care. Services: Services provided to patient in accordance with Admission requirements found in Title 42 Section 412.3 of the Code of Federal Regulations Patient History Date of Service: 04/05/23 Reason for admission: Abdominal pain, small bowel obstruction. History of Present Illness: 67-year-old female patient with medical history significant for chronic kidney disease stage II, hypertension, hyperlipidemia, diabetes type 2, sleep apnea, who also has a history of diverticulitis who came to the ED with complaint of abdominal pain. Imaging studies done revealed a small bowel obstruction however labs are not overtly concerning. She had reported being constipated for the past 4 days and has not had a bowel motion. She also reported abdominal pain with nausea earlier in the day however she has no vomiting since she was evaluated in the ED. She was managed with IV fluid and pain control medication and she was put in for inpatient observation. Allergies hydromorphone HCl [From Dilaudid] Allergy (Mild, Verified 01/21/23 09:09) Shortness of breath Penicillins Allergy (Mild, Verified 01/21/23 09:09) delusion lisinopril Allergy (Unknown, Verified 01/21/23 09:09) Hives losartan Allergy (Verified 01/21/23 09:09) Hives metronidazole [From Flagyl] Allergy (Verified 01/21/23 09:09) rash inside mouth Home Medications: Magnesium Oxide [Magnesium] 800 mg PO BID 06/30/18 Metformin ER [Glucophage ER*] 1,000 mg PO BID 06/30/18 Metoprolol Tartrate 50 mg PO BEDTIME 06/30/18 Rosuvastatin [Crestor*] 20 mg PO BEDTIME 06/30/18 Pantoprazole [Protonix Tab*] 40 mg PO DAILY #30 tab 08/29/19 Dapagliflozin Propanediol [Farxiga] 10 mg PO DAILY 07/05/22 Linaclotide [Linzess] 290 mcg PO DAILY 07/05/22 NIFEdipine [Nifedipine ER] 60 mg PO DAILY 07/09/22 Aspirin Chewable [Aspirin Chewable*] 1 tab PO DAILY 08/29/22 Cyclopentolate 2% [Cyclogyl 2% Ophth Soln] 1 gtt RIGHT EYE BID 01/17/23 Dulaglutide [Trulicity] 0.75 mg SQ EVERY 7TH DAY 01/17/23 Ergocalciferol (Vitamin D2) [Vitamin D2] 125 mcg PO DAILY 01/17/23 Glipizide [Glipizide ER] 10 mg PO DAILY 01/17/23 Insulin Detemir [Levemir] 100 units SQ DAILY 01/17/23 Latanoprost 2.5 ml LEFT EYE DAILY 01/17/23 Meloxicam, Submicronized [Meloxicam] 5 mg PO PRN PRN 01/17/23 - Past Medical/Surgical History Diabetic: Yes -: sleep apnea -: HTN -: Diverticulitis -: asthma -: COPD -: NIDDM -: hyperlipidemia -: bowel resection -: - Family History Father -: Hypertension, GI disease, Diabetes, Stroke Mother -: Other (see notes) Notes: dementia Sister -: Lung disease, Cancer Brother -: Lung disease, Cancer - Social History Alcohol use: No CD- Drugs: No Caffeine use: No Review of Systems General: Malaise Eyes: Unremarkable ENT: Unremarkable Respiratory: Unremarkable Cardiovascular: Unremarkable Gastrointestinal: Abdominal Pain Genitourinary: Unremarkable Musculoskeletal: Unremarkable Integumentary: Unremarkable Neurological: Unremarkable Physical Examination - Physical Exam General: Alert, Oriented x3 HEENT: Atraumatic, Normocephalic Neck: Supple Respiratory: Normal air movement Cardiovascular: Regular rate/rhythm, Normal S1 S2 Gastrointestinal: Tenderness Musculoskeletal: No swelling Neurological: Normal speech, Normal strength at 5/5 x4 extr - Studies Laboratory Data (last 24 hrs) 04/04/23 04/04/23 18:57 18:57 WBC 9.30 Hgb 13.6 Hct 42.7 Plt Count 284 Sodium 139 Potassium 3.9 BUN 23 H Creatinine 1.11 H Glucose 87 Total Bilirubin 0.5 AST 18 ALT 27 Alkaline Phosphatase 81 Lipase 19 Assessment and Plan - Plan Small bowel obstruction: Imaging confirms finding. Patient continues to have abdominal pain. She also has not had a bowel motion in 4 days. Continue isotonic fluid hydration. Continue pain control with as needed morphine. She will be kept NPO. Director Internal Control/surgeon to evaluate. Will have on the trial of laxative. Diabetes type 2: Will continue sliding scale insulin for glucose control, monitor blood sugar every 6h pending resolution of SBO and oral feeds resumption. Hypertension: Monitor vital signs per unit protocol and continue antihypertensive medications. Hyperlipidemia: We will continue statin therapy. Prophylaxis: Lovenox for DVT prophylaxis CODE STATUS: Full code Disposition: We will treat small bowel obstruction/constipation and she will be discharged once bowel obstruction is resolved. - Advance Directives Does patient have a Living Will: No Does patient have a Durable POA for Healthcare: No
[2023-04-05] MEDS ORDERED: MORPHINE 2 MG/ML SYR IV PRN (02:06)
[2023-04-05] MEDS ORDERED: MORPHINE 2 MG/ML SYR ONE (02:10)
[2023-04-05 03:09] VITALS: BMI 29.2
[2023-04-05] MEDS ORDERED: BISACODYL 10 MG RECTAL SUPP PR ONE (06:02)
[2023-04-05] MEDS: ENOXAPARIN 40 MG/0.4 ML SQ SCH (09:00)
[2023-04-05 09:16] LABS: Magnesium 1.6 mg/dL (1.6-2.4); Phosphorus 3.3 mg/dL (2.5-4.9)
[2023-04-05] MEDS ORDERED: BISACODYL 10 MG RECTAL SUPP ONE ×2 (09:24→09:32)
[2023-04-05] MEDS: NA CHLORIDE 0.9% 1,000 ML IV SCH (11:00)
[2023-04-05 13:34] LABS: Magnesium 1.6 mg/dL (1.6-2.4); Phosphorus 4.1 mg/dL (2.5-4.9)
--- NOTE | 2023-04-05 13:48 | P.PN ---
Subjective Date of Service: 04/05/23 Chief Complaint: Abdominal pain, small bowel obstruction. Pt is resting comfortably in bed. She is NPO. Currently passing gas. No BM yet. Will follow serial KUB. No complaints overnight. Review of Systems Unremarkable General: Unremarkable Eyes: Unremarkable ENT: Unremarkable Respiratory: Unremarkable Cardiovascular: Unremarkable Gastrointestinal: Unremarkable Genitourinary: Unremarkable Musculoskeletal: Unremarkable Integumentary: Unremarkable Neurological: Unremarkable Lymphatics: Unremarkable Physical Examination - Vital Signs Temperature: 97.9 F Blood Pressure: 138/85 Pulse: 85 Respirations: 16 Pulse Ox (%): 100 - Physical Exam General: Alert, In no apparent distress, Oriented x3 HEENT: Atraumatic, Normocephalic, PERRLA Neck: Supple, 2+ carotid pulse no bruit Respiratory: Clear to auscultation bilaterally, Normal air movement Cardiovascular: No edema, Normal pulses, Regular rate/rhythm, Normal S1 S2 Capillary refill: <2 Seconds Gastrointestinal: Hypoactive, Soft and benign, Non-distended Musculoskeletal: No clubbing, No swelling Integumentary: No rashes, No breakdown Neurological: Normal gait, Normal speech, Normal strength at 5/5 x4 extr Lymphatics: No axilla or inguinal lymphadenopathy - Studies Laboratory Data (last 24 hrs) 04/04/23 04/04/23 18:57 18:57 WBC 9.30 Hgb 13.6 Hct 42.7 Plt Count 284 Sodium 139 Potassium 3.9 BUN 23 H Creatinine 1.11 H Glucose 87 Phosphorus 3.3 Magnesium 1.6 Total Bilirubin 0.5 AST 18 ALT 27 Alkaline Phosphatase 81 Lipase 19 Assessment And Plan - Plan Small bowel obstruction: Per Imaging study. Pt is passing gas. No BM. Will keep pt NPO, D5NS at 75 cc/hr. Will follow up KUB in the am. Consulted GI and Gen surgeon. Lactate is 1.5. Diabetes type 2: Will continue accuchek, SSI, and ADA diet. Hypertension: Will continue home meds. Hyperlipidemia: Statin. DVT Prophylaxis: Lovenox CODE STATUS: Full code Disposition: Pending hospital course. Discharge Plan: Home Plan to discharge in: 24 Hours - Code Status/Comfort Care Code Status Assessed: Yes
[2023-04-05] MEDS: D5 0.45 NS 1,000 ML IV SCH (14:00)
[2023-04-05] MEDS ORDERED: MAGNESIUM SULFATE 1 gm IVPB 1 GM/100 ML BAG IV ONE (19:00)
[2023-04-05 21:29] VITALS: O2SAT 92
[2023-04-06 03:27] LABS: Absolute Lymphocytes (CBC) 2.1 K/uL (0.7-4.9); Hematocrit 37.1 % (36.0-45.0); Lymphocytes % 35.5 % (15.3-44.8); MCV 81.9 fL (80-100); MPV 8.8 fL (7.6-11.3); Platelets 242 thou/uL (152-406); RBC Red Blood Cell Count 4.52 M/uL (3.86-4.86)
[2023-04-06 03:51] LABS: Magnesium 1.8 mg/dL (1.6-2.4); Potassium 3.6 mEq/L (3.5-5.1)
[2023-04-06] MEDS ORDERED: MAGNESIUM SULFATE 1 gm IVPB 1 GM/100 ML BAG IV ONE (03:53)
[2023-04-06] MEDS ORDERED: KCL 20 MEQ/100 mL IVPB 20 MEQ/100 ML BAG IV SCH (04:00)
[2023-04-06] MEDS: D5 0.45 NS 1,000 ML IV SCH (04:28)
[2023-04-06] MEDS: ENOXAPARIN 40 MG/0.4 ML SQ SCH (08:21)
[2023-04-06] MEDS ORDERED: ACETAMINOPHEN 325 MG TABLET PO PRN (08:34)
[2023-04-06] MEDS ORDERED: LABETALOL 20 MG/4ML SYRINGE IV ONE (09:00)
[2023-04-06] MEDS ORDERED: METOPROLOL XL 25 MG TAB PO SCH (09:00)
--- NOTE | 2023-04-06 10:43 | P.PN ---
Subjective Date of Service: 04/06/23 Chief Complaint: Abdominal pain, small bowel obstruction. Subjective: No new changes, Improving, Doing well Alert and Oriented x 3 Reports abdominal pain, moderate Patient had BMx1 in the ED 2 days ago <Sammie Mcgarry - Last Filed: 04/06/23 11:00> Date of Service: 04/15/23 <Marlena Adams - Last Filed: 04/15/23 15:13> Review of Systems 10-point ROS is otherwise unremarkable <Sammie Mcgarry - Last Filed: 04/06/23 11:00> Physical Examination - Vital Signs Temperature: 97.5 F Blood Pressure: 163/86 Pulse: 92 Respirations: 16 Pulse Ox (%): 97 - Physical Exam General: Alert, Oriented x3 HEENT: Atraumatic, Normocephalic Neck: Supple, 2+ carotid pulse no bruit Respiratory: Clear to auscultation bilaterally, Normal air movement Cardiovascular: No edema, Normal pulses Capillary refill: <2 Seconds Gastrointestinal: Normal bowel sounds, Soft and benign Musculoskeletal: No clubbing, No contractures Integumentary: No rashes, No breakdown Neurological: Normal speech, Normal tone <Sammie Mcgarry - Last Filed: 04/06/23 11:00> Assessment And Plan - Current Problems (Diagnosis) (1) Small bowel obstruction Onset Date: ~04/04/23 Status: Acute (2) Type 2 diabetes mellitus Status: Chronic Qualifiers: Diabetes mellitus usp insulin use: with usp use Diabetes mellitus complication status: without complication Qualified Code(s): E11.9 - Type 2 diabetes mellitus without complications; 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 Per Imaging study. Pt is passing gas. BM x1. Will keep pt NPO, D5NS at 75 cc/hr. Will follow up KUB in the am. Consulted GI and Gen surgeon. With abdominal pain, no BM yesterday. Started colace, lactulose and flagyl. Diabetes type 2: Will continue accuchek, SSI, and ADA diet. Hypertension: Chronic, uncontrolled, resumed all home meds (Metoprolo, Nefidipine) Will continue monitor closely. Hyperlipidemia: chronic, on Rosuvastatin. DVT Prophylaxis: Lovenox CODE STATUS: Full code Discharge Plan: Home Plan to discharge in: 24 Hours - Code Status/Comfort Care Code Status Assessed: Yes (full code) Code Status: Full Code Physician Review: Patient Assessed, Agree with Above Assessment and Plan Critical Care: No Time Spent Managing PTS Care (In Minutes): 35 (minutes) <Sammie Mcgarry - Last Filed: 04/06/23 11:00> - Plan Pt seen and examined. I agree with the note by the [employer]. Follow up KUB to r/o SBO <Marlena Adams - Last Filed: 04/15/23 15:13>
[2023-04-06] MEDS ORDERED: LACTULOSE 20 GM/30 ML UCUP PO PRN (10:55)
--- NOTE | 2023-04-06 11:21 | RAD REPORT ---
EXAM DESCRIPTION: RAD - Abdomen 1 View (KUB) - 04/06/2023 9:36 am CLINICAL HISTORY: SBO COMPARISON: No comparisons TECHNIQUE: Single AP view of the abdomen. FINDINGS: Nonobstructive bowel gas pattern. No air-fluid levels, free air, or pneumatosis. Moderate stool burden. Right upper quadrant surgical clips suggestive of prior cholecystectomy. No suspicious calcifications. No significant bony abnormality. IMPRESSION: Moderate diffuse parenchymal volume loss. No findings to suggest bowel obstruction.
[2023-04-06] MEDS ORDERED: DOCUSATE NA 100 MG CAP PO SCH (12:00)
[2023-04-06] MEDS ORDERED: METRONIDAZOLE 500mg IVPB 500 MG/100 ML BAG IV SCH (12:00)
--- NOTE | 2023-04-06 16:11 | P.DS ---
Admission Date: 04/05/23 Discharge Date: 04/06/23 Reason for Admission: Abdominal pain, small bowel obstruction. - Problems (1) Small bowel obstruction Onset Date: ~04/04/23 Status: Acute (2) Type 2 diabetes mellitus Status: Chronic Qualifiers: Diabetes mellitus fpc insulin use: with fpc use Diabetes mellitus complication status: without complication Qualified Code(s): E11.9 - Type 2 diabetes mellitus without complications; Z79.4 - assisted (current) use of insulin (3) Hypertension Status: Chronic Qualifiers: Hypertension type: primary hypertension Qualified Code(s): I10 - Essential (primary) hypertension (4) Hyperlipidemia Status: Chronic Qualifiers: Hyperlipidemia type: other hyperlipidemia Qualified Code(s): E78.49 - Other hyperlipidemia; E78.4 - Other hyperlipidemia Brief History of Present Illness: History of Present Illness: 67-year-old female patient with medical history significant for chronic kidney disease stage II, hypertension, hyperlipidemia, diabetes type 2, sleep apnea, who also has a history of diverticulitis who came to the ED with complaint of abdominal pain. Imaging studies done revealed a small bowel obstruction however labs are not overtly concerning. She had reported being constipated for the past 4 days and has not had a bowel motion. She also reported abdominal pain with nausea earlier in the day however she has no vomiting since she was evaluated in the ED. She was managed with IV fluid and pain control medication and she was put in for inpatient observation Hospital Course: Ms. Montalvo is a pleasant 67-year-old female patient with a past medical history significant for chronic kidney disease stage II, hypertension, hyperlipidemia, diabetes type 2, sleep apnea who was admitted to the [facility] on 04/05/2020 for abdominal pain.. She was admitted to the hospital as her imaging studies revealed a small bowel obstruction. She was managed with IV fluids, laxative and analgesics as needed. Patient had a bowel movement. On 04/06/2020, patient was seen on morning rounds and deemed medically stable for discharge. Patient was discharged with instructions to schedule follow-up appointments with PCP in 3 to 5-day. Patient was provided prescriptions for MiraLAX 17 g p.o. daily for constipation. The patient and family members were given the opportunity to ask questions 1. Please call and schedule a follow-up appointment with your PCP in 3-5 days - Please follow-up with your PCP for medication refills/adjustments <Sammie Mcgarry - Last Filed: 04/06/23 16:08> Admission Date: 04/05/23 Discharge Date: 04/15/23 Hospital Course: Pt seen and examined. I agree with the note by the INTERLINE CLERK. Ok to discharge pt. <BryanMichaelgenoveva Smith - Last Filed: 04/15/23 15:14> Disposition: ROUTINE DISCHARGE Discharge Condition: GOOD Vital Signs/Physical Exam: Temp Pulse Resp BP Pulse Ox 97.4 F 69 16 137/82 94 04/06/23 12:00 04/06/23 12:00 04/06/23 12:00 04/06/23 12:00 04/06/23 12:00 General: Alert, Oriented x3 HEENT: Atraumatic, Normocephalic Neck: Supple, 2+ carotid pulse no bruit Respiratory: Clear to auscultation bilaterally, Normal air movement Cardiovascular: No edema, Normal pulses, Regular rate/rhythm Capillary refill: <2 Seconds Gastrointestinal: Normal bowel sounds, Soft and benign Musculoskeletal: No clubbing, No swelling Integumentary: No rashes, No breakdown Neurological: Normal gait, Normal speech, Normal affect Laboratory Data at Discharge: WBC 6.00 thou/uL (4.3-10.9) 04/06/23 02:50 Hgb 11.9 g/dL (12.0-15.0) L 04/06/23 02:50 Hct 37.1 % (36.0-45.0) 04/06/23 02:50 Plt Count 242 thou/uL (152-406) 04/06/23 02:50 Sodium 140 mEq/L (136-145) 04/06/23 02:50 Potassium 3.6 mEq/L (3.5-5.1) 04/06/23 02:50 BUN 11 mg/dL (7-18) 04/06/23 02:50 Creatinine 0.81 mg/dL (0.55-1.02) 04/06/23 02:50 Glucose 119 mg/dL (74-106) H 04/06/23 02:50 Phosphorus 4.1 mg/dL (2.5-4.9) 04/05/23 13:11 Magnesium 1.8 mg/dL (1.6-2.4) 04/06/23 02:50 Total Bilirubin 0.5 mg/dL (0.2-1.0) 04/04/23 18:57 AST 18 U/L (15-37) 04/04/23 18:57 ALT 27 U/L (13-56) 04/04/23 18:57 Alkaline Phosphatase 81 U/L (45-117) 04/04/23 18:57 Lipase 19 U/L (13-75) 04/04/23 18:57 <Sammie Mcgarry - Last Filed: 04/06/23 16:08> Vital Signs/Physical Exam: Temp Pulse Resp BP Pulse Ox 97.5 F 84 16 154/90 H 95 04/06/23 17:15 04/06/23 17:15 04/06/23 17:15 04/06/23 17:15 04/06/23 17:15 Laboratory Data at Discharge: WBC 6.00 thou/uL (4.3-10.9) 04/06/23 02:50 Hgb 11.9 g/dL (12.0-15.0) L 04/06/23 02:50 Hct 37.1 % (36.0-45.0) 04/06/23 02:50 Plt Count 242 thou/uL (152-406) 04/06/23 02:50 Sodium 140 mEq/L (136-145) 04/06/23 02:50 Potassium 3.6 mEq/L (3.5-5.1) 04/06/23 02:50 BUN 11 mg/dL (7-18) 04/06/23 02:50 Creatinine 0.81 mg/dL (0.55-1.02) 04/06/23 02:50 Glucose 119 mg/dL (74-106) H 04/06/23 02:50 Phosphorus 4.1 mg/dL (2.5-4.9) 04/05/23 13:11 Magnesium 1.8 mg/dL (1.6-2.4) 04/06/23 02:50 Total Bilirubin 0.5 mg/dL (0.2-1.0) 04/04/23 18:57 AST 18 U/L (15-37) 04/04/23 18:57 ALT 27 U/L (13-56) 04/04/23 18:57 Alkaline Phosphatase 81 U/L (45-117) 04/04/23 18:57 Lipase 19 U/L (13-75) 04/04/23 18:57 <Marlena Adams - Last Filed: 04/15/23 15:14> Diet: ADA Activity: Ad kevin <Sammie Mcgarry - Last Filed: 04/06/23 16:08> <Marlena Adams - Last Filed: 04/15/23 15:14> Home Medications: Magnesium Oxide [Magnesium] 800 mg PO BID 06/30/18 Metformin ER [Glucophage ER*] 1,000 mg PO BID 06/30/18 Metoprolol Tartrate 50 mg PO BEDTIME 06/30/18 Rosuvastatin [Crestor*] 20 mg PO BEDTIME 06/30/18 Pantoprazole [Protonix Tab*] 40 mg PO DAILY #30 tab 08/29/19 Dapagliflozin Propanediol [Farxiga] 10 mg PO DAILY 07/05/22 Linaclotide [Linzess] 290 mcg PO DAILY 07/05/22 NIFEdipine [Nifedipine ER] 60 mg PO DAILY 07/09/22 Aspirin Chewable [Aspirin Chewable*] 1 tab PO DAILY 08/29/22 Cyclopentolate 2% [Cyclogyl 2%*] 1 gtt RIGHT EYE BID 01/17/23 Dulaglutide [Trulicity] 0.75 mg SQ EVERY 7TH DAY 01/17/23 Ergocalciferol (Vitamin D2) [Vitamin D2] 125 mcg PO DAILY 01/17/23 Glipizide [Glipizide ER] 10 mg PO DAILY 01/17/23 Insulin Detemir [Levemir] 100 units SQ DAILY 01/17/23 Latanoprost 2.5 ml LEFT EYE DAILY 01/17/23 Meloxicam, Submicronized [Meloxicam] 5 mg PO PRN PRN 01/17/23 Polyethylene Glycol 3350 [Miralax] 17 gm PO DAILY 30 Days #30 packet 04/06/23 New Medications: Polyethylene Glycol 3350 [Miralax] 17 gm PO DAILY 30 Days #30 packet Physician Discharge Instructions: Ms. Montalvo is a pleasant 67-year-old female patient with a past medical history significant for chronic kidney disease stage II, hypertension, hyperlipidemia, diabetes type 2, sleep apnea who was admitted to the [facility] on 04/05/2020 for abdominal pain.. She was admitted to the hospital as her imaging studies revealed a small bowel obstruction. She was managed with IV fluids, laxative and analgesics as needed. Patient had a bowel movement. On 04/06/2020, patient was seen on morning rounds and deemed medically stable for discharge. Patient was discharged with instructions to schedule follow-up appointments with PCP in 3 to 5-day. Patient was provided prescriptions for MiraLAX 17 g p.o. daily for constipation. The patient and family members were given the opportunity to ask questions 1. Please call and schedule a follow-up appointment with your PCP in 3-5 days - Please follow-up with your PCP for medication refills/adjustments Followup: ANKUR PASCUAL [Primary Care Provider] -
[2023-04-06 17:17] VITALS: BP 154/90; TEMP 97.5
[2023-04-06] MEDS ORDERED: MAGNESIUM OXIDE 400 MG TAB PO SCH (21:00)
[2023-04-06] MEDS ORDERED: CYCLOPENTOLATE 2% OPTH 2 ML OPTH SCH (21:00)
[2023-04-06] MEDS ORDERED: METOPROLOL TAR 50 MG TAB PO SCH (21:00)
[2023-04-06] MEDS ORDERED: ROSUVASTATIN 10 MG TAB PO SCH (21:00)
[2023-04-07] MEDS ORDERED: PANTOPRAZOLE 40MG TABLET PO SCH (06:30)
[2023-04-07] MEDS ORDERED: Dapagliflozin Propanediol [Farxiga] 10 MG Tablet PO SCH (09:00)
[2023-04-07] MEDS ORDERED: NIFEDIPINE XL 60 MG TABLET PO SCH (09:00)
[2023-04-07] MEDS ORDERED: Linaclotide [Linzess] 290 MCG Capsule PO SCH (09:00)
[2023-04-07] MEDS ORDERED: VITAMIN D 1000 UNIT TAB PO SCH (09:00)
[2023-04-07] MEDS ORDERED: ASPIRIN 81 MG CHEWABLE TABLET PO SCH (09:00)
[2023-04-07] MEDS ORDERED: LATANOPROST 0.005% 2.5ML OPTH OPTH SCH (09:00)
[2023-04-07] MEDS ORDERED: MELOXICAM 7.5 MG TAB PO SCH ×2 (09:00)
[2023-04-13] MEDS ORDERED: Dulaglutide [Trulicity] 0.75 MG/0.5 ML Pen.Injctr SQ SCH (09:00)
== END 2023-04-06 17:33 | disposition home or self-care (01) | DRG 390 ==
LOC: ER 16:24 → ERHOLD 04-05 01:11 → 2ND 04-05 15:07
PROVIDERS: ADMIT Internal Medicine Nephrology; ATTEND Hospitalist
DX: K56.609 Unspecified intestinal obstruction, unspecified as to partial versus complete obstruction (principal); E11.22 Type 2 diabetes mellitus with diabetic chronic kidney disease; I12.9 Hypertensive chronic kidney disease with stage 1 through stage 4 chronic kidney disease, or unspecified chronic kidney disease; N18.2 Chronic kidney disease, stage 2 (mild); E78.5 Hyperlipidemia, unspecified; G47.30 Sleep apnea, unspecified; J45.909 Unspecified asthma, uncomplicated; J44.9 Chronic obstructive pulmonary disease, unspecified
CPT/HCPCS: 36415; 74018; 74177; 80048; 80053; 81001; 82947; 83605; 83690; 83735; 84100; 85025; 87040; 96361; 96374; 96375; 99285; J1650; J2270; J2405; J3010; J3475; J3480; J7030; J7799; Q9967

== ENCOUNTER → 2023-07-05 | Emergency (ER) | payer OTHER ==
[~2023-07-05] MED LIST changes: +AZITHROMYCIN 250 MG TAB ONE; +IBUPROFEN 400 MG TAB ONE; +LIDOCAINE HCL JELLY 2% 6 ML SYRINGE TOP ONE; -PROMETHAZINE 25 MG TABLET ONE
--- OUTSIDE RECORDS SUMMARY | 2023-07-05 17:21 | XMS REPORT | Clinical Summary ---
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
--- NOTE | 2023-07-05 19:11 | ER ---
Nurse's Notes [facility] Name: Amy Montalvo Age: 67 yrs Sex: Female : 1955 Arrival Date: 07/05/2023 Time: 17:19 Bed 6 Private MD: RAZ ROCHA Diagnosis: Developmental disorders of jaws-TMJ, LEFT EAR PAIN Presentation: 07/04 17:32 Chief complaint: Patient states: left ear pain since yesterday morning and is getting ko1 worse. Had a new crown placed on left upper back tooth last friday. Coronavirus screen: At this time, the client does not indicate any symptoms associated with coronavirus-19. Ebola Screen: No symptoms or risks identified at this time. Initial Sepsis Screen: Does the patient meet any 2 criteria? No. Patient's initial sepsis screen is negative. Does the patient have a suspected source of infection? No. Patient's initial sepsis screen is negative. Risk Assessment: Do you want to hurt yourself or someone else? Patient reports no desire to harm self or others. Onset of symptoms is unknown. 17:32 Method Of Arrival: Ambulatory ko1 17:32 Acuity: FARIDA 3 ko1 Triage Assessment: 17:36 General: Appears uncomfortable, Behavior is calm, cooperative, appropriate for age. ko1 Pain: Complains of pain in left ear. EENT: Reports pain in left ear recent crown on left upper back tooth. Historical: - Allergies: 17:36 Demerol; ko1 17:36 Dilaudid; ko1 17:36 Flagyl; ko1 17:36 Lisinopril; ko1 17:36 PENICILLINS; ko1 - PMHx: 17:36 Diabetes - NIDDM; Diverticulitis; Hyperlipidemia; Hypertension; Sleep Apnea; ko1 - PSHx: 17:36 bowel resection; section; ko1 - Immunization history:: Adult Immunizations up to date. - Social history:: Smoking status: Patient denies any tobacco usage or history of. Screenin:00 [facility] ED Fall Risk Assessment (Adult) Score/Fall Risk Level 0 - 2 = Low Risk. Abuse iw screen: Denies threats or abuse. Denies injuries from another. Nutritional screening: No deficits noted. Tuberculosis screening: No symptoms or risk factors identified. Assessment: 18:40 General: Appears in no apparent distress. Behavior is calm, cooperative. Pain: iw Complains of pain in left ear. Neuro: Level of Consciousness is awake, alert, obeys commands, Oriented to person, place, time, situation. Cardiovascular: Patient's skin is warm and dry. Respiratory: Respiratory effort is even, unlabored, Respiratory pattern is regular. Derm: Skin is intact, is healthy with good turgor. Musculoskeletal: Range of motion: intact in all extremities. 19:18 Reassessment: Patient appears in no apparent distress at this time. Patient and/or jb4 family updated on plan of care and expected duration. Pain level reassessed. Patient is alert, oriented x 3, equal unlabored respirations, skin warm/dry/pink. Vital Signs: 17:32 BP 106 / 71; Pulse 95; Resp 17; Temp 98.2; Pulse Ox 94% on R/A; ko1 ED Course: 17:21 Patient arrived in ED. mr 17:21 AJRAZ is Private Physician. mr 17:24 Akira Canales MD is Attending Physician. starr 17:36 Triage completed. ko1 17:36 Arm band placed on right wrist. Patient placed in an exam room, on a stretcher, on ko1 pulse oximetry, Patient notified of wait time. 18:01 Mya Vickers, RN is Primary Nurse. iw 19:00 Patient did not have IV access during this emergency room visit. iw 19:10 Carla Cage MD is Referral Physician. starr 19:18 Patient has correct armband on for positive identification. Call light in reach. Side jb4 rails up X 1. Provided Education on: Discharge instructions.. 19:18 No provider procedures requiring assistance completed. jb4 Administered Medications: 18:49 CANCELLED (Duplicate Order): rocephin (ceftriaxone)1 grams IM once starr 18:49 CANCELLED (Duplicate Order): [id number] mg PO once starr 19:18 Drug: Ibuprofen PO 400 mg PO once Route: PO; jb4 19:30 Follow up: Response: No adverse reaction iw 19:18 Drug: Viscous Lidocaine Mucous Membrane Liquid (4 %) 3 ml Mucous Membrane once; LEFT jb4 EAR Route: Mucous Membrane; 19:18 Drug: AZITHromycin PO 500 mg PO once Route: PO; jb4 19:30 Follow up: Response: No adverse reaction iw Medication: 19:00 VIS not applicable for this client. iw Outcome: 19:11 Discharge ordered by . starr 19:18 Discharged to home ambulatory, jbAlly 19:18 Condition: stable 19:18 Discharge instructions given to patient, Instructed on discharge instructions, follow up and referral plans. no drinking with medication, no driving heavy equipment, medication usage, Demonstrated understanding of instructions, follow-up care, medications, Prescriptions given X 3, 19:19 Patient left the ED. jb4 Signatures: Akira Canales MD MD cha Rivera, Mary, Reg Reg mr Mya Vickers, RN RN Felix Roman RN RN jb4 Perla Treviño, RN RN ko1
--- NOTE | 2023-07-05 19:11 | EDPHYS ---
Physician Documentation [facility] Name: Amy Montalov Age: 67 yrs Sex: Female : 1955 Arrival Date: 07/05/2023 Time: 17:19 Bed 6 Private MD: RAZ ROCHA ED Physician Akira Canales HPI: 07/04 18:50 This 67 yrs old Black Female presents to ER via Ambulatory with complaints of Ear Pain. starr 18:50 The patient presents with pain, tenderness. The complaints affect the left ear. Onset: starr The symptoms/episode began/occurred 3 day(s) ago, ON OFF. Modifying factors: The symptoms are alleviated by nothing, the symptoms are aggravated by nothing. Associated signs and symptoms: The patient has no apparent associated signs or symptoms. Severity of symptoms: At their worst the symptoms were mild moderate in the emergency department the symptoms are unchanged. The patient has not experienced similar symptoms in the past. Historical: - Allergies: 17:36 Demerol; ko1 17:36 Dilaudid; ko1 17:36 Flagyl; ko1 17:36 Lisinopril; ko1 17:36 PENICILLINS; ko1 - PMHx: 17:36 Diabetes - NIDDM; Diverticulitis; Hyperlipidemia; Hypertension; Sleep Apnea; ko1 - PSHx: 17:36 bowel resection; section; ko1 - Immunization history:: Adult Immunizations up to date. - Social history:: Smoking status: Patient denies any tobacco usage or history of. ROS: 18:51 Constitutional: Negative for fever, chills, and weight loss, Eyes: Negative for injury, starr pain, redness, and discharge, Neck: Negative for injury, pain, and swelling, Cardiovascular: Negative for chest pain, palpitations, and edema, Respiratory: Negative for shortness of breath, cough, wheezing, and pleuritic chest pain, Abdomen/GI: Negative for abdominal pain, nausea, vomiting, diarrhea, and constipation, Back: Negative for injury and pain, : Negative for injury, bleeding, discharge, and swelling, MS/Extremity: Negative for injury and deformity, Skin: Negative for injury, rash, and discoloration, Neuro: Negative for headache, weakness, numbness, tingling, and seizure, Psych: Negative for depression, anxiety, suicide ideation, homicidal ideation, and hallucinations, Allergy/Immunology: Negative for hives, rash, and allergies, Endocrine: Negative for neck swelling, polydipsia, polyuria, polyphagia, and marked weight changes, Hematologic/Lymphatic: Negative for swollen nodes, abnormal bleeding, and unusual bruising, 18:51 ENT: Positive for ear pain, of the left ear, Exam: 18:51 Constitutional: This is a well developed, well nourished patient who is awake, alert, starr and in no acute distress. Head/Face: Normocephalic, atraumatic. Eyes: Pupils equal round and reactive to light, extra-ocular motions intact. Lids and lashes normal. Conjunctiva and sclera are non-icteric and not injected. Cornea within normal limits. Periorbital areas with no swelling, redness, or edema. ENT: Nares patent. No nasal discharge, no septal abnormalities noted. Tympanic membranes are normal and external auditory canals are clear. Oropharynx with no redness, swelling, or masses, exudates, or evidence of obstruction, uvula midline. Mucous membranes moist. Neck: Trachea midline, no thyromegaly or masses palpated, and no cervical lymphadenopathy. Supple, full range of motion without nuchal rigidity, or vertebral point tenderness. No Meningismus. Chest/axilla: Normal chest wall appearance and motion. Nontender with no deformity. No lesions are appreciated. Cardiovascular: Regular rate and rhythm with a normal S1 and S2. No gallops, murmurs, or rubs. Normal PMI, no JVD. No pulse deficits. Respiratory: Lungs have equal breath sounds bilaterally, clear to auscultation and percussion. No rales, rhonchi or wheezes noted. No increased work of breathing, no retractions or nasal flaring. Abdomen/GI: Soft, non-tender, with normal bowel sounds. No distension or tympany. No guarding or rebound. No evidence of tenderness throughout. Back: No spinal tenderness. No costovertebral tenderness. Full range of motion. Skin: Warm, dry with normal turgor. Normal color with no rashes, no lesions, and no evidence of cellulitis. MS/ Extremity: Pulses equal, no cyanosis. Neurovascular intact. Full, normal range of motion. Neuro: Awake and alert, GCS 15, oriented to person, place, time, and situation. Cranial nerves II-XII grossly intact. Motor strength 5/5 in all extremities. Sensory grossly intact. Cerebellar exam normal. Normal gait. Psych: Awake, alert, with orientation to person, place and time. Behavior, mood, and affect are within normal limits. 18:51 ENT: Ear canal(s): are normal, TM's: are normal, no acute changes, Examination of the other ear shows no obvious abnormality, Mouth: is normal, no abscess, no drooling, no injury, no laceration, no lesion(s), (-) tongue elevation (-) trismus no ulcerations, no gum abnomalities, no lip abnormalities, no mucosal abnormalities, no tongue abnormalities, Posterior pharynx: is normal, no acute changes, PAIN WITH TMJ , OPENING, CLOSING, 19:09 ECG was reviewed by the Attending Physician. [facility] Vital Signs: 17:32 BP 106 / 71; Pulse 95; Resp 17; Temp 98.2; Pulse Ox 94% on R/A; ko1 MDM: 17:24 Patient medically screened. [facility] 18:52 Differential diagnosis: otitis media, otitis externa, acute otalgia, cerumen impaction, [facility] barotrauma , TMJ. Data reviewed: vital signs, nurses notes. Consideration of Admission/Observation Escalation of care including admission/observation considered. I considered the following discharge prescriptions or medication management in the emergency department Medications were administered in the Emergency Department. See MAR. Test considered but Not performed: Labs: NO CBC, NO COMP, NO EKG. Care significantly affected by the following chronic conditions: Diabetes, Hypertension, DIVERTICULITIS, HIGH LIPIDS, SLEEP APNEA. 07/04 18:54 Order name: EKG; Complete Time: 18:55 [facility] 07/04 18:54 Order name: EKG - Nurse/Tech; Complete Time: 19:18 [facility] EC:09 Rate is 101 beats/min. Rhythm is regular. QRS Crow[place] is Normal. VT interval is normal. [facility] QRS interval is normal. QT interval is normal. No Q waves. T waves are Normal. No ST changes noted. Clinical impression: NSR w/ Non-specific ST/T Changes and No evidence of ischemia. Interpreted by me. Reviewed by me. Administered Medications: 18:49 CANCELLED (Duplicate Order): rocephin (ceftriaxone)1 grams IM once [facility] 18:49 CANCELLED (Duplicate Order): [id number] mg PO once starr 19:18 Drug: Ibuprofen PO 400 mg PO once Route: PO; jb4 19:30 Follow up: Response: No adverse reaction iw 19:18 Drug: Viscous Lidocaine Mucous Membrane Liquid (4 %) 3 ml Mucous Membrane once; LEFT jb4 EAR Route: Mucous Membrane; 19:18 Drug: AZITHromycin PO 500 mg PO once Route: PO; jb4 19:30 Follow up: Response: No adverse reaction iw Disposition Summary: 07/05/23 19:11 Discharge Ordered Notes: Location: Home [facility] Problem: new [facility] Symptoms: have improved starr Condition: Stable [facility] Diagnosis - Developmental disorders of jaws - TMJ, LEFT EAR PAIN [facility] Followup: starr - With: Private Physician - When: 2 - 3 days - Reason: Recheck today's complaints, Continuance of care, Re-evaluation by your physician Followup: [facility] - With: Carla Cage MD - When: 1 - 2 days - Reason: Recheck today's complaints, Re-evaluation by your physician Discharge Instructions: - Discharge Summary Sheet [facility] - Ear Drops, Adult [facility] - Temporomandibular Joint Syndrome [facility] - Ear Drops, Adult, [id number] [facility] Forms: - Medication Reconciliation Form [facility] - Thank You Letter [facility] - Antibiotic Education [facility] - Prescription Opioid Use [facility] - Patient Portal Instructions [facility] - Leadership Thank You Letter [facility] Prescriptions: - acetaminophen-codeine 300-30 mg Oral tablet - take 1 tablet ORAL route every 4-6 hours as needed for pain; 16 tablet; starr Refills: 0, Product Selection Permitted - Motrin IB 200 mg Oral tablet - take 2 tablet ORAL route every 6 hours As needed as needed with food; 30 starr tablet; Refills: 0, Product Selection Permitted - Zithromax 500 mg Oral tablet - take 1 tablet ORAL route once daily for 4 days; 4 tablet; Refills: 0, Product [facility] Selection Permitted Signatures: Akira Canales MD MD cha Bryson, James, RN RN jb4 Perla Treviño RN RN ko1 Mya Vickers RN iw Corrections: (The following items were deleted from the chart) 18:49 18:45 Rocephin (cefTRIAXone) IM 1 grams IM once ordered. [facility] 18:49 18:45 Cefdinir PO 300 mg PO once ordered. [facility]
[2023-07-05 19:43] VITALS: BP 106/71; TEMP 98.2; O2SAT 94
--- NOTE | 2023-07-07 14:19 | EKG ---
Test Date: 2023-07-05 Test Time: 18:52:26 Decision Analyst: DELROY MEASUREMENT RESULTS: Intervals: Rate: 101 SD: 152 QRSD: 84 QT: 360 QTc: 466 [place]: P: 63 SD: 152 QRS: 56 T: 65 INTERPRETIVE STATEMENTS: Sinus tachycardia Possible Left atrial enlargement Borderline ECG Compared to ECG 08/28/2022 13:25:21 Sinus rhythm no longer present Electronically Signed On 07-07-23 14:14:41 CDT by Leonides Ruiz
== END ==
LOC: ER 17:19
DX: M26.609 Unspecified temporomandibular joint disorder, unspecified side (principal); H92.02 Otalgia, left ear; Z88.0 Allergy status to penicillin; Z88.5 Allergy status to narcotic agent; Z88.8 Allergy status to other drugs, medicaments and biological substances
CPT/HCPCS: 93005; 99283

== ENCOUNTER 2024-01-13 12:49 | Observation (INO) | payer OTHER ==
--- OUTSIDE RECORDS SUMMARY | 2024-01-13 12:53 | XMS REPORT | Clinical Summary ---
Author Name Unknown Organization [facility] Address [address] [place] [address] Care Team Providers Care Pattern Developer Name Role Phone Kristin Reyes MD Primary Care Provider [phone] Meredith Tineo MD Unavailable [phone] July RN Unavailable Alexander Figueroa MD Primary Care Provider [phone] Allergies Active Allergy Reactions Criticality Noted Date Comments Amlodipine 10/06/2019 Metronidazole Hcl 10/06/2019 Hydromorphone 10/06/2019 Lisinopril 10/06/2019 Losartan 10/06/2019 Penicillins 10/06/2019 Medications Medication Sig Dispensed Refills Start Date End Date Status magnesium 200 mg tab magnesium Acti ve acetaminophen-codeine (TYLENOL #3) 300 mg-30 mg tablet Take 1 tablet by mouth as needed. 05/18/2019 Active acetaminophen-codeine (TYLENOL #3) 300 mg-30 mg tablet TAKE 1 TABLET BY MOUTH EVERY 4 HOURS NEEDED FOR PAIN SCALE 4 6 05/19/2019 Active albuterol (PROVENTIL,VENTOLIN) 2.5 mg/3 mL (0.083%) nebulizer solution USE 1 VIAL IN NEBULIZER EVERY 4 HOURS NEEDED FOR WHEEZING FOR SHORTNESS OF BREATH 02/04/2019 Active atropine 1% ophthalmic solution atropine 1 % eye drops Active atorvastatin (LIPITOR) 10 mg tablet Take 10 mg by mouth. Active benzonatate (TESSALON) 200 mg capsule TAKE 1 CAPSULE BY MOUTH THREE TIMES DAILY NEEDED FOR COUGH 06/11/2019 Active cyanocobalamin (VITAMIN B-12) 500 mcg tablet Take 500 mcg by mouth. 06/04/2017 Active FOLBEE 2.5-25-1 mg tab TAKE 1 TABLET BY MOUTH ONCE DAILY 10/02/2019 Active cyclobenzaprine (FLEXERIL) 5 mg tablet 08/19/2019 Active RESTASIS 0.05 % ophthalmic emulsion 11/25/2018 Activ e dapagliflozin (Farxiga) 10 mg tab Farxiga 10 mg tablet 1 tablet daily Active dicyclomine (BENTYL) 20 mg tablet Take 20 mg by mouth. 05/20/2019 Active dulaglutide (TRULICITY) 1.5 mg/0.5 mL injection Inject 1.5 mg under the skin. 01/19/2019 Active VITAMIN D2 1,250 mcg (50,000 unit) capsule TAKE ONE CAPSULE BY MOUTH EVERY 2 WEEKS WITH FOOD 08/29/2019 Active fluticasone propionate (FLONASE) 50 mcg/spray nasal spray Inhale 2 sprays into each nostril. 06/11/2019 Active glimepiride (AMARYL) 2 mg tablet 11/09/2018 Active metFORMIN (GLUCOPHAGE) 1000 mg tablet TAKE 1 TABLET BY MOUTH TWICE DAILY WITH MEALS 09/14/2019 Active metoprolol succinate (TOPROL XL) 25 mg 24 hr tablet TAKE 1 TABLET BY MOUTH ONCE DAILY 09/07/2019 Active NIFEdipine (ADALAT CC) 60 MG 24 hr tablet TAKE 1 TABLET BY MOUTH ONCE DAILY 12/09/2018 Active omeprazole (PriLOSEC) 40 MG capsule TAKE 1 CAPSULE BY MOUTH ONCE DAILY 11/02/2018 Active ondansetron (ZOFRAN-ODT) 4 mg disintegrating tablet DISSOLVE 1 TABLET IN MOUTH EVERY 8 HOURS NEEDED FOR NAUSEA AND VOMITING 05/19/2019 Active tiZANidine (ZANAFLEX) 2 mg tablet TAKE 1 2 TO 1 (ONE HALF TO ONE) TABLET BY MOUTH EVERY 8 HOURS NEEDED FOR MUSCLE SPASM OR PAIN 07/09/2019 Active coenzyme Q10 100 mg capsule Take 100 mg by mouth. 06/11/2019 Active repaglinide (PRANDIN) 0.5 mg tablet Take 0.5 mg by mouth 2 (two) times a day before meals. Active ferrous sulfate 325 (65 FE) MG [...] deficiency 10/10/2019 Other iron deficiency anemia 10/06/2019 Encounters Date Type Department Care Team Description 10/15/2023 Telephone [facility] - [facility] [address] [facility], 5th [place] [address] Bill July F, RN 10/08/2023 Telephone Breast [facility] - [facility] [address] [facility], 5th [place] [address] Bill July, RN 10/02/2023 Telephone [facility] - Medical Oncology [address] [place] [address], 5th [place] [address] Bill July, RN 10/01/2023 2:50 AM CDT Ancillary Procedure [facility] [address] [place] [address] 11953 Kristin Reyes MD Cancer 10/01/2023 2:45 AM CDT Ancillary Procedure [facility] [address] [place] [address] 32142 Kristin Reyes MD Cancer 10/01/2023 2:40 AM CDT Ancillary Procedure [facility] [address] [place] [address] 96618 Kristin Reyes MD Cancer 10/01/2023 2:35 AM CDT Ancillary Procedure [facility] [address] [place] [address] 89842 Kristin Reyes MD Cancer 10/01/2023 2:30 AM CDT Ancillary Procedure [facility] [address] [place] [address] 94438 Kristin Reyes MD Cancer 10/01/2023 2:25 AM CDT Ancillary Procedure [facility] [address] [place] [address] 07899 Kristin Reyes MD Cancer 10/01/2023 2:20 AM CDT Ancillary Procedure [facility] [address] [place] [address] 61426 Kristin Reyes MD Cancer 10/01/2023 2:15 AM CDT Ancillary Procedure [facility] [address] [place] [address] 99733 Kristin Reyes MD Cancer 10/01/2023 2:10 AM CDT Ancillary Procedure [facility] [address] [place] [address] 34725 Kristin Reyes MD Cancer 10/01/2023 2:05 AM CDT Ancillary Procedure [facility] [address] [place] [address] 59365 Kristin Reyes MD Cancer 10/01/2023 2:00 AM CDT Ancillary Procedure [facility] [address] [place] [address] 24807 Kristin Reyes MD Cancer 10/01/2023 1:55 AM CDT Ancillary Procedure [facility] [address] [place] [address] 87135 Kristin Reyes MD Cancer 10/01/2023 1:50 AM CDT Ancillary Procedure [facility] [address] [place] [address] 15593 Kristin Reyes MD Cancer 10/01/2023 1:45 AM CDT Ancillary Procedure [facility] [address] [place] [address] 26870 Kristin Reyes MD Cancer 10/01/2023 1:40 AM CDT Ancillary Procedure [facility] [address] [place] [address] 37595 Kristin Reyes MD Cancer 10/01/2023 1:35 AM CDT Ancillary Procedure [facility] [address] [place] [address] 18829 Kristin Reyes MD Cancer 10/01/2023 1:30 AM CDT Ancillary Procedure [facility] [address] [place] [address] 49113 Kristin Reyes MD Cancer 10/01/2023 1:25 AM CDT Ancillary Procedure [facility] [address] [place] [address] 94074 Kristin Reyes MD Cancer 10/01/2023 1:20 AM CDT Ancillary Procedure [facility] [address] [place] [address] 48870 Kristin Reyes MD Cancer 10/01/2023 1:15 AM CDT Ancillary Procedure [facility] [address] [place] [address] 78805 Kristin Reyes MD Cancer 10/01/2023 1:10 AM CDT Ancillary Procedure [facility] [address] [place] [address] 92640 Kristin Reyes MD Cancer 10/01/2023 1:05 AM CDT Ancillary Procedure [facility] [address] [place] [address] 46124 Kristin Reyes MD Cancer 10/01/2023 1:00 AM CDT Ancillary Procedure [facility] [address] [place] [address] 22218 Kristin Reyes MD Cancer 10/01/2023 12:55 AM CDT Ancillary Procedure [facility] [address] [place] [address] 48605 Kristin Reyes MD Cancer 10/01/2023 12:50 AM CDT Ancillary Procedure [facility] [address] [place] [address] 02165 Kristin Reyes MD Cancer 10/01/2023 12:45 AM CDT Ancillary Procedure [facility] [address] [place] [address] 44018 Kristin Reyes MD Cancer 10/01/2023 12:40 AM CDT Ancillary Procedure [facility] [address] [place] [address] 37341 Kristin Reyes MD Cancer 10/01/2023 12:35 AM CDT Ancillary Procedure [facility] [address] [place] [address] 97694 Kristin Reyes MD Cancer 10/01/2023 12:30 AM CDT Ancillary Procedure [facility] [address] [place] [address] 70263 Kristin Reyes MD Cancer 10/01/2023 12:25 AM CDT Ancillary Procedure [facility] [address] [place] [address] 25180 Kristin Reyes MD Cancer 10/01/2023 12:20 AM CDT Ancillary Procedure [facility] [address] [place] [address] 62349 Kristin Reyes MD Cancer 10/01/2023 12:15 AM CDT Ancillary Procedure [facility] [address] [place] [address] 23358 Kristin Reyes MD Cancer 10/01/2023 12:10 AM CDT Ancillary Procedure [facility] [address] [place] [address] 75662 Kristin Reyes MD Cancer 10/01/2023 12:05 AM CDT Ancillary Procedure [facility] [address] [place] [address] 43630 Kristin Reyes MD Cancer 10/01/2023 Ancillary Procedure [facility] [address] [place] [address] 51453 Kristin Reyes MD Cancer 09/30/2023 9:55 PM CDT Ancillary Procedure [facility] [address] [place] [address] 30288 Kristin Reyes MD Cancer 09/30/2023 9:50 PM CDT Ancillary Procedure [facility] [address] [place] [address] 14093 Kristin Reyes MD Cancer 09/30/2023 9:45 PM CDT Ancillary Procedure [facility] [address] [place] [address] 20301 Kristin Reyes MD Cancer 09/30/2023 9:40 PM CDT Ancillary Procedure [facility] [address] [place] [address] 23668 Kristin Reyes MD Cancer 09/30/2023 9:35 PM CDT Ancillary Procedure [facility] [address] [place] [address] 27900 Kristin Reyes MD Cancer 09/30/2023 9:30 PM CDT Ancillary Procedure [facility] [address] [place] [address] 18893 Kristin Reyes MD Cancer 09/30/2023 9:25 PM CDT Ancillary Procedure [facility] [address] [place] [address] 64821 Kristin Reyes MD Cancer 09/30/2023 9:20 PM CDT Ancillary Procedure [facility] [address] [place] [address] 15463 Kristin Reyes MD Cancer 09/30/2023 9:15 PM CDT Ancillary Procedure [facility] [address] [place] [address] 03685 Kristin Reyes MD Cancer 09/30/2023 9:10 PM CDT Ancillary Procedure [facility] [address] [place] [address] 62987 Kristin Reyes MD Cancer 09/30/2023 9:05 PM CDT Ancillary Procedure [facility] [address] [place] [address] 22710 Kristin Reyes MD Cancer 09/30/2023 9:00 PM CDT Ancillary Procedure [facility] [address] [place] [address] 88957 Kristin Reyes MD Cancer 09/30/2023 8:55 PM CDT Ancillary Procedure [facility] [address] [place] [address] 98595 Kristin Reyes MD Cancer 09/30/2023 8:50 PM CDT Ancillary Procedure [facility] [address] [place] [address] 26227 Kristin Reyes MD Cancer 09/30/2023 8:45 PM CDT Ancillary Procedure [facility] [address] [place] [address] 76743 Kristin Reyes MD Cancer 09/30/2023 8:40 PM CDT Ancillary Procedure Image [facility] [address] [place] [address] 49494 Kristin Reyes MD Cancer 09/30/2023 8:35 PM CDT Ancillary Procedure [facility] [address] [place] [address] 58265 Kristin Reyes MD Cancer 09/30/2023 8:30 PM CDT Ancillary Procedure Image [facility] [address] [place] [address] 30708 Kristin Reyes MD Cancer 09/30/2023 8:25 PM CDT Ancillary Procedure Image [facility] [address] [place] [address] 82840 Kristin Reyes MD Cancer 09/30/2023 8:20 PM CDT Ancillary Procedure [facility] [address] [place] [address] 29200 Kristin Reyes MD Cancer 09/30/2023 8:15 PM CDT Ancillary Procedure Image [facility] [address] [place] [address] 74082 Kristin Reyes MD Cancer 09/30/2023 8:05 PM CDT Ancillary Procedure Image [facility] [address] [place] [address] 55499 Kristin Reyes MD Cancer 09/30/2023 8:00 PM CDT Ancillary Procedure [facility] [address] [place] [address] 99159 Kristin Reyes MD Cancer 09/18/2023 Ancillary Procedure [facility] [address] [place] [address] 56961 Kristin Reyes MD Cancer after 01/13/2023 Surgical History Surgery Date Site/Laterality Comments COLONOSCOPY [...] Orientation Straight 10/04/2019 11 :22 AM CDT Job Start Date Occupation Industry Not on file Not on file Not on file Obstetrics History Para Term AB IAB SAB Ectopic Multiple Livin g Live Births 2 2 Date Outcome GA Total Labor Labor/2nd/3rd Weight Sex Type Anes PTL Brandy A1 A5 Name Clin Plan of Treatment Health Maintenance Due Date Last Done Comments COVID-19 Vaccine (4 - 2023-2 5 season) 2023 03/26/2021, 06/13/2020, 05/16/2020 Influenza Vaccine (#1) 2023 3, 06/18/2022, 04/02/2021, Additional history exists Pneumococcal Vaccine: 65+ Years Completed 11/26/2021, 01/20/2020, 02/07/2018 Procedures Procedure Name Priority Date/Time Associated Diagnosis Comments [facility] INTERVENTIONAL Routine 09/18/2023 2: 11 PM CDT Cancer [facility] US DUPLEX EXTREMITY VEINS UNILAT Routine 09/18/2023 12:01 PM CDT Cancer [facility] US BREAST BIOPSY Routine 09/02/2023 7:56 AM CDT Cancer [facility] MAMMO BREAST BIOPSY Routine 09/02/19 7:56 AM CDT Cancer [facility]SI MAMMOGRAPHY UNILATERAL RIGHT Routine 09/02/2023 7:56 AM CDT Cancer [facility] US ECHO Routine 08/25/2023 7:56 AM CDT Cancer OSI MAMMO BILATERAL Routine 08/13/2023 7 :57 AM CDT Cancer OSI US BREAST Routine 08/13/2023 7:56 AM CDT Cancer OSI CT ABDOMEN AND PELVIS Routine 08/02/2023 7:57 AM CDT Cancer OSI CHEST Routine 07/31/2023 7:57 AM CDT Cancer [facility] BONE DENSITY STUDY Routine 2:11 PM COAL PASSER Cancer OSI LUMBAR SPINE Routine 01/17/2023 2:12 PM CDT Cancer [facility] SACRUM AND COCCYX Routine 01/17/2023 2:11 PM CDT Cancer after 01/13/2023 Results * OSI Interventional (09/18/2023 2:11 PM CDT) Narrative Systemgenerated, Documentation - 09/30/2023 2:11 PM CDT Study acquired at another institution. For comparison only. No MD [place] originated interpretation requested or available. Meredith Tineo MD IMG OUTSIDE IMAGE OR DERABLES * OSI SPECIMEN RADIOGRAPH (09/18/2023 12:01 PM CDT) Narrative MAGVIEW - 10/02/2023 12:01 PM CDT Study acquired at another institution. For comparison only. No MD [place] originated interpretation requested or available. Meredith Tineo MD IMG OUTSIDE IMAGE OR DERABLES Performing Organization Address [facility] de Phone Number MAGVIEW * OSI MAMMOGRAPHY UNILATERAL RIGHT (09/02/2023 7:56 AM CDT) Narrative MAGVIEW - 10/01/2023 7:56 AM CDT Study acquired at another institution. For comparison only. No MD [place] originated interpretation requested or available. Meredith Tineo MD IMG OUTSIDE IMAGE OR DERABLES Performing Organization Address [facility] de Phone Number MAGVIEW * OSI Mammo Breast Biopsy (09/02/2023 7:56 AM CDT) Narrative MAGVIEW - 10/01/2023 7:56 AM CDT Study acquired at another institution. For comparison only. No MD [place]ales originated interpretation requested or available. Meredith Tineo MD IMG OUTSIDE IMAGE OR DERABLES Performing Organization Address [facility] de Phone Number MAGVIEW * OSI US Breast Biopsy (09/02/2023 7:56 AM CDT) Narrative MAGVIEW - 10/01/2023 7:56 AM CDT Study acquired at another institution. For comparison only. No MD [place]ales originated interpretation requested or available. Meredith Tineo MD IMG OUTSIDE IMAGE OR DERABLES Performing Organization Address [facility] Co de Phone Number MAGVIEW * OSI US Echo (08/25/2023 7:56 AM CDT) Narrative Systemgenerated, Documentation - 10/01/2023 7:56 AM CDT Study acquired at another institution. For comparison only. No MD [place] originated interpretation requested or available. Meredith Tineo MD IMG OUTSIDE IMAGE OR DERABLES * OSI Mammo (08/13/2023 7:57 AM CDT) Narrative MAGVIEW - 10/01/2023 7:57 AM CDT Study acquired at another institution. For comparison only. No MD [place] originated interpretation requested or available. Meredith Tineo MD IMG OUTSIDE IMAGE OR DERABLES Performing Organization Address [facility] Co de Phone Number MAGVIEW * OSI US Breast (08/13/2023 7:56 AM CDT) Narrative MAGVIEW - 10/01/2023 7:57 AM CDT Study acquired at another institution. For comparison only. No MD [place] originated interpretation requested or available. Meredith SWENSONG OUTSIDE IMAGE OR DERABLES Performing Organization Address [facility] Co de Phone Number MAGVIEW * OSI CT Abdomen and Pelvis (08/02/2023 7:57 AM CDT) Narrative Systemgenerated, Documentation - 10/01/2023 7:57 AM CDT Study acquired at another institution. For comparison only. No MD [place] originated interpretation requested or available. Meredith Tineo MD IMG OUTSIDE IMAGE OR DERABLES * OSI Chest (07/31/2023 7:57 AM CDT) Narrative Systemgenerated, Documentation - 10/01/2023 7:57 AM CDT Study acquired at another institution. For comparison only. No MD [place] originated interpretation requested or available. Meredith Tineo MD IMG OUTSIDE IMAGE OR DERABLES * OSI Bone Density Study (02/17/2023 2:11 PM COAL PASSER) Narrative Systemgenerated, Documentation - 09/30/2023 2:11 PM CDT Study acquired at another institution. For comparison only. No MD [place] originated interpretation requested or available. eMredith Tineo MD IMG OUTSIDE IMAGE OR DERABLES * OSI Lumbar Spine (01/17/2023 2:12 PM CDT) Narrative Systemgenerated, Documentation - 09/30/2023 2:12 PM CDT Study acquired at another institution. For comparison only. No MD [place] originated interpretation requested or available. Meredith Tineo MD IMG OUTSIDE IMAGE OR DERABLES * OSI Sacrum and Coccyx (01/17/2023 2:11 PM CDT) Narrative Systemgenerated, Documentation - 09/30/2023 2:12 PM CDT Study acquired at another institution. For comparison only. No MD [place] originated interpretation requested or available. Meredith Tineo MD IMG OUTSIDE IMAGE OR DERABLES after 01/13/2023 Care Teams Pattern Developer Relationship Specialty Start Date End Date Kristin Reyes MD [address] [place] [address] [id number] [email or web address] PCP - General Medical Oncology 09/22/19 10/05/23 Meredith Tineo MD [address] [place] [address] PCP - External Primary Care Provider 10/02/23 Alexander Figueroa MD [address] [place] [address] [email or web address] PCP - General Breast Medical Oncology 10/06/23 Polina Khan, RN [address] [place] [address] [email or web address] Intake Nurse Navigator Nursing 10/02/23 10/14/23
[2024-01-13 14:38] LABS: Absolute Eosinophils 0.2 K/uL (0-0.5); Absolute Neutrophil 6.9 K/uL (1.8-8.0); Basophils % 0.4 % (0-1.3); Eosinophils % 1.6 % (0-4.4); Hematocrit 40.2 % (36.0-45.0); Hemoglobin 12.9 g/dL (12.0-15.0); Lymphocytes % 20.1 % (15.3-44.8); MCH 26.4 pg (27.0-35.0); MCHC 32.2 g/dL (32.0-36.0); MCV 81.9 fL (80-100); MPV 8.5 fL (7.6-11.3); Monocytes % 10.3 % (3.3-12.3); Neutrophils % 67.6 % (41.7-73.7); Nucleated Red Blood Cells % 0.1 % (0-0); Platelets 292 thou/uL (152-406); RBC Red Blood Cell Count 4.91 M/uL (3.86-4.86); Red Cell Distribution Width 15.2 % (12.1-15.2)
[2024-01-13 14:55] LABS: Albumin/Globulin Ratio 0.7 (1.1-1.8); Bilirubin Total 0.5 mg/dL (0.2-1.0); Globulin 4.4 g/dL (2.3-3.5); Protein, Total 7.4 g/dL (6.4-8.2)
[2024-01-13] MEDS ORDERED: NA CHLORIDE 0.9% 1,000 ML ONE ×2 (15:10→22:52)
--- NOTE | 2024-01-13 15:29 | RAD REPORT ---
EXAM: CT ANGIO ABD/PELVIS W CONTRAST HISTORY: [facility] MAIN GI BLEED Bed Name: DIS1 COMPARISON: None TECHNIQUE: Multiple contiguous axial images were obtained a CTA of the chest and abdomen with contras t per aortic dissection protocol. Sagittal and coronal 3-D MIP reformats were performed. One or more of the following dose reduction techniques were used: Automated exposure control, adjustment of the mA and kV according to patient size, and iterative reconstruction. Unless otherwise specified, incidental findings do not require dedicated imaging follow-up. FINDINGS: LUNG BASES: Clear. LIVER: Unremarkable. KIDNEYS: Unremarkable. SPLEEN: Unremarkable. PANCREAS: Unremarkable. BOWEL: Redundant colon. Posteriorly projecting diverticulum along the distal ascending colon with muc osal hyperenhancement and adjacent fat stranding extending towards the retroperitoneum. No evidence of extraluminal gas or discrete collections Appendix is unremarkable. Moderate burden of diverticulos is throughout the colon. RETROPERITONEUM: No lymphadenopathy BONES: Degenerative changes in the spine. Incidentally noted small right inguinal hernia containing fat. ABDOMINAL AORTA: Normal caliber without evidence of dissection or aneurysmal dilatation. Mild atheros clerotic calcifications. CELIAC TRUNK: Patent SMA: Patent GERRI: Patent RENAL ARTERIES: Bilateral single renal arteries without significant atherosclerotic disease IMPRESSION: Sequelae of acute diverticulitis involving the distal ascending colon. No evidence of extraluminal ga s or discrete collections. No contrast blush on the angiographic images to suggest active extravasation. No evidence of thoracic or abdominal aortic aneurysm or dissection. THIS REPORT CONTAINS FINDINGS THAT MAY BE CRITICAL TO PATIENT CARE. The findings were verbally commun icated via telephone to Rama Bonilla MD on 01/13/2024 3:24 PM.
[2024-01-13 16:06] LABS: Sqamous Epithelial <5 /HPF (None Seen); Urine Bacteria <20 /HPF (<20); Urine Bilirubin NEGATIVE (Negative); Urine Blood Negative (Negative); Urine Clarity Clear (Clear); Urine Color Light-Yellow (Yellow); Urine Culture Reflex Order NOT NEEDED; Urine Glucose 4+ (Over) (Negative); Urine Ketones NEGATIVE (Negative); Urine Microscopic Reflex YN ORDER UMIC; Urine Mucus Slight /HPF (None Seen); Urine Nitrite NEGATIVE (Negative); Urine Protein NEGATIVE (Negative); Urine Urobilinogen Normal (Normal); Urine WBC <5 /HPF (<5); Urine WBC Clump Rare /HPF (None Seen); Urine Yeast (Budding) Trace /HPF (None Seen); Urine pH 5.5 (5.0-7.0)
[2024-01-13 16:07] LABS: Specific Gravity > 1.030 (1.005-1.030)
[2024-01-13] MEDS ORDERED: ACETAMINOPHEN 500 MG TAB PO PRN (18:04)
[2024-01-13] MEDS ORDERED: ONDANSETRON 4 MG/2 ML VIAL IV PRN (18:04)
[2024-01-13] MEDS ORDERED: GLUCAGON 1 MG/VIAL IM PRN (18:12)
[2024-01-13] MEDS ORDERED: D10W 125 ML IV PRN (18:12)
--- NOTE | 2024-01-13 18:16 | EDPHYS ---
Physician Documentation [facility] Name: Amy Montalvo Age: 68 yrs Sex: Female : 1955 Arrival Date: 01/13/2024 Time: 12:49 Bed 18 Private MD: ED Physician Rama Bonilla Historical: - Allergies: 01/12 13:30 Demerol; tm6 13:30 Dilaudid; tm6 13:30 Flagyl; tm6 13:30 Lisinopril; tm6 13:30 PENICILLINS; tm6 - PMHx: 13:30 Diabetes - NIDDM; Diverticulitis; Hyperlipidemia; Hypertension; Sleep Apnea; breast tm6 cancer (Sleep Apnea); - PSHx: 13:30 bowel resection; section; Cholecystectomy; tm6 - Immunization history:: Client reports receiving the 2nd dose of the Covid vaccine. - Infectious Disease History:: Denies. - Social history:: Smoking status: Patient denies any tobacco usage or history of. Vital Signs: 13:26 Temp 99.2(O); tm6 13:27 BP 106 / 77; Pulse 107; Resp 19; Pulse Ox 95% on R/A; MAP 87 mmHg; Weight 83.01 kg; tm6 Height 5 ft. 7 in. ; Pain 0/10; 15:30 BP 132 / 80; Pulse 99; Resp 18; Pulse Ox 95% on R/A; mb9 17:46 BP 141 / 90; Pulse 95; Resp 16; Pulse Ox 97% on R/A; mb9 18:50 BP 154 / 90; Pulse 92; Resp 18; Pulse Ox 100% on R/A; mb9 19:10 BP 139 / 95; Pulse 100; Resp 17; Pulse Ox 96% on 2 lpm NC; Pain 5/10; rg5 20:00 BP 138 / 82; Pulse 99; Resp 17; Pulse Ox 97% on 2 lpm NC; rg5 21:00 BP 131 / 78; Pulse 97; Resp 18; Pulse Ox 98% on 2 lpm NC; rg5 13:27 Body Mass Index 28.66 (83.01 kg, 170.18 cm) tm6 13:27 Pain Scale: Adult tm6 19:10 Pain Scale: Adult rg5 MDM: 15:23 Patient medically screened. gb1 01/12 14:00 Order name: CBC with Diff; Complete Time: 15:23 gb1 01/12 14:00 Order name: CMP; Complete Time: 15:23 gb1 01/12 14:00 Order name: Lipase; Complete Time: 15:23 gb1 01/12 14:00 Order name: Urinalysis w/ reflexes; Complete Time: 16:46 gb1 01/12 22:10 Order name: Glucose, Ancillary Testing EDMS 01/13 05:04 Order name: CBC with Automated Diff EDMS 01/13 05:26 Order name: Basic Metabolic Panel EDMS 01/13 05:26 Order name: Phosphorus EDMS 01/13 05:26 Order name: Magnesium EDMS 01/13 07:50 Order name: Glucose, Ancillary Testing EDMS 01/12 14:17 Order name: CT ANGIO ABD/PELVIS W CONTRAST; Complete Time: 15:39 EDMS 01/12 14:00 Order name: IV Saline Lock; Complete Time: 15:14 gb1 01/12 14:00 Order name: Labs collected and sent; Complete Time: 15:14 gb1 Administered Medications: 15:30 Drug: NS 0.9% IV 1000 ml IV at 1 bolus Per protocol; 1000 mL bolus Route: IV; Rate: 1 mb9 bolus; Site: left forearm; 17:46 Follow up: Response: No adverse reaction; IV Status: Completed infusion mb9 Disposition Summary: 01/13/24 18:15 Hospitalization Ordered Notes: Hospitalization Status: Inpatient Admission gb1 Provider: Mohan Munoz Condition: Stable gb1 Problem: an acute exacerbation gb1 Symptoms: have worsened gb1 Bed/Room Type: Standard banner [facility]24 [facility]37[facility] Diagnosis - Diverticulitis of large intestine without perforation or abscess with bleeding gb1 Forms: - Medication Reconciliation Form gb1 - SBAR form gb1 - Leadership Thank You Letter 1 Signatures: Dispatcher [employer] Sharda Hester RN RN lg3 Nereida Dimas RN RN mb9 Rama Bonilla MD MD gb1 Padmaja Torres RN RN tm6 Corrections: (The following items were deleted from the chart) 14:01 14:01 CBC+H.LAB.BRZ ordered. EDMS EDMS 14:01 14:01 COMPREHENSIVE METABOLIC PANEL+C.LAB.BRZ ordered. EDMS EDMS 14:01 14:01 LIPASE+C.LAB.BRZ ordered. EDMS EDMS 14:01 14:01 Urinalysis+U.LAB.BRZ ordered. EDMS EDMS 14:02 14:02 Abdomen Angio+CT.RAD.BRZ ordered. EDMS EDMS 14:02 14:02 Pelvis Angio+CT.RAD.BRZ ordered. EDMS EDMS 21:37 18:15 Telemetry/MedSurg (Inpatient) gb1 lg3 21:37 18:15 gb1 lg3
--- NOTE | 2024-01-13 18:16 | ER ---
Nurse's Notes [facility] Name: Amy Montalvo Age: 68 yrs Sex: Female : 1955 Arrival Date: 01/13/2024 Time: 12:49 Bed 18 Private MD: Diagnosis: Diverticulitis of large intestine without perforation or abscess with bleeding Presentation: 01/12 13:27 Chief complaint: Patient states: went in for radiation this morning, left around 0930, tm6 went to restroom and had blood on tissue paper. Occurred several more times after this. Nausea started yesterday. Legs weak and cramping, starting today. Coronavirus screen: Client denies travel out of the [place] in the last 14 days. Ebola Screen: Patient negative for fever greater than or equal to 101.5 degrees Fahrenheit, and additional compatible Ebola Virus Disease symptoms Patient denies exposure to infectious person. Patient denies travel to an Ebola-affected area in the 21 days before illness onset. No symptoms or risks identified at this time. Initial Sepsis Screen: Does the patient meet any 2 criteria? HR > 90 bpm. Does the patient have a suspected source of infection? No. Patient's initial sepsis screen is negative. Risk Assessment: Do you want to hurt yourself or someone else? Patient reports no desire to harm self or others. Onset of symptoms was January 12, 2024. 13:27 Acuity: FARIDA 3 tm6 13:27 Method Of Arrival: Wheelchair tm6 Triage Assessment: 13:30 General: Appears uncomfortable, Behavior is calm, cooperative. Pain: Denies pain. EENT: tm6 No signs and/or symptoms were reported regarding the EENT system. Neuro: Level of Consciousness is awake, alert, obeys commands, Oriented to person, place, time, situation. Cardiovascular: Patient's skin is warm and dry. Respiratory: Airway is patent Respiratory effort is even, unlabored, Respiratory pattern is regular, symmetrical. GI: Reports bloody stool, nausea. : No signs and/or symptoms were reported regarding the genitourinary system. Derm: No signs and/or symptoms reported regarding the dermatologic system. Musculoskeletal: Reports weakness and cramping in legs. Historical: - Allergies: 13:30 Demerol; tm6 13:30 Dilaudid; tm6 13:30 Flagyl; tm6 13:30 Lisinopril; tm6 13:30 PENICILLINS; tm6 - PMHx: 13:30 Diabetes - NIDDM; Diverticulitis; Hyperlipidemia; Hypertension; Sleep Apnea; breast tm6 cancer (Sleep Apnea); - PSHx: 13:30 bowel resection; section; Cholecystectomy; tm6 - Immunization history:: Client reports receiving the 2nd dose of the Covid vaccine. - Infectious Disease History:: Denies. - Social history:: Smoking status: Patient denies any tobacco usage or history of. Screenin:58 [facility] ED Fall Risk Assessment (Adult) History of falling in the last 3 months, mb9 including since admission No falls in past 3 months (0 pts) Confusion or Disorientation No (0 pts) Intoxicated or Sedated No (0 pts) Impaired Gait No (0 pts) Mobility Assist Device Used No (0 pt) Altered Elimination No (0 pt) Score/Fall Risk Level 0 - 2 = Low Risk Oriented to surroundings, Maintained a safe environment, Educated pt \T\ family on fall prevention, incl call for assistance when getting out of bed. Abuse screen: Denies threats or abuse. Nutritional screening: No deficits noted. Tuberculosis screening: No symptoms or risk factors identified. Assessment: 15:15 Reassessment: pt brought back to ER room. mb9 15:30 General: Appears in no apparent distress. Behavior is calm, cooperative. Pain: Denies mb9 pain. Neuro: Level of Consciousness is awake, alert, obeys commands, Oriented to person, place, time, situation, Appropriate for age. Neuro: Reports weakness in entire body. Cardiovascular: Patient's skin is warm and dry. Respiratory: Airway is patent Respiratory effort is even, unlabored, Respiratory pattern is regular, symmetrical. GI: Reports bloody stool, nausea. GI: Abdomen is flat, non-distended, Bowel sounds present X 4 quads. Abd is soft and non tender X 4 quads. : No signs and/or symptoms were reported regarding the genitourinary system. EENT: No signs and/or symptoms were reported regarding the EENT system. Derm: Skin is pink, warm \T\ dry. Musculoskeletal: Range of motion: intact in all extremities. 16:42 Reassessment: No changes from previously documented assessment. Patient and/or family mb9 updated on plan of care and expected duration. Pain level reassessed. Patient is alert, oriented x 3, equal unlabored respirations, skin warm/dry/pink. 17:45 Reassessment: No changes from previously documented assessment. Patient and/or family mb9 updated on plan of care and expected duration. Pain level reassessed. Patient is alert, oriented x 3, equal unlabored respirations, skin warm/dry/pink. 18:49 Reassessment: Patient appears in no apparent distress at this time. No changes from mb9 previously documented assessment. Patient and/or family updated on plan of care and expected duration. Pain level reassessed. 18:55 Reassessment: Pt sleeping and SPO2 dropped to 88%. Pt placed on 2 l NC and POS now 98%. mb9 19:10 General: Appears in no apparent distress. Behavior is calm, cooperative. rg5 19:10 Pain: Complains of pain in abdomen Pain currently is 4 out of 10 on a pain scale. rg5 Quality of pain is described as dull. Neuro: Level of Consciousness is awake, alert, obeys commands, Oriented to person, place, time, situation, Appropriate for age. Cardiovascular: Patient's skin is warm and dry. Respiratory: Airway is patent Trachea midline Respiratory effort is even, unlabored, Respiratory pattern is regular, symmetrical. GI: Abdomen is round non-distended, Bowel sounds present X 4 quads. Abd is soft and non tender X 4 quads. Reports bloody stool. : No signs and/or symptoms were reported regarding the genitourinary system. EENT: No signs and/or symptoms were reported regarding the EENT system. Derm: Skin is intact, Skin is dry, Skin is normal. Musculoskeletal: Range of motion: intact in all extremities. 20:00 Reassessment: Patient and/or family updated on plan of care and expected duration. Pain rg5 level reassessed. Patient is alert, oriented x 3, equal unlabored respirations, skin warm/dry/pink. 21:00 Reassessment: Patient and/or family updated on plan of care and expected duration. Pain rg5 level reassessed. Patient is alert, oriented x 3, equal unlabored respirations, skin warm/dry/pink. Patient states symptoms have improved. Vital Signs: 13:26 Temp 99.2(O); tm6 13:27 BP 106 / 77; Pulse 107; Resp 19; Pulse Ox 95% on R/A; MAP 87 mmHg; Weight 83.01 kg; tm6 Height 5 ft. 7 in. ; Pain 0/10; 15:30 BP 132 / 80; Pulse 99; Resp 18; Pulse Ox 95% on R/A; mb9 17:46 BP 141 / 90; Pulse 95; Resp 16; Pulse Ox 97% on R/A; mb9 18:50 BP 154 / 90; Pulse 92; Resp 18; Pulse Ox 100% on R/A; mb9 19:10 BP 139 / 95; Pulse 100; Resp 17; Pulse Ox 96% on 2 lpm NC; Pain 5/10; rg5 20:00 BP 138 / 82; Pulse 99; Resp 17; Pulse Ox 97% on 2 lpm NC; rg5 21:00 BP 131 / 78; Pulse 97; Resp 18; Pulse Ox 98% on 2 lpm NC; rg5 13:27 Body Mass Index 28.66 (83.01 kg, 170.18 cm) tm6 13:27 Pain Scale: Adult tm6 19:10 Pain Scale: Adult rg5 ED Course: 12:52 Patient arrived in ED. im 13:30 Triage completed. tm6 13:30 Arm band placed on left wrist. tm6 14:00 Rama Bonilla MD is Attending Physician. gb1 14:26 CT completed. Patient tolerated procedure well. Note: 22 G DIFFUSICS TO LT AC BY SURYA bueno IN CT, LABS COLLECTED AND SENT. Patient moved to CT via wheelchair. Patient moved back from CT. 14:29 CT ANGIO ABD/PELVIS W CONTRAST In Process Unspecified. EDMS 15:21 Urinalysis w/ reflexes Sent. mb9 15:30 Initial lab(s) drawn, by nv, sent to lab. Inserted saline lock: 24 gauge in left mb9 forearm, using aseptic technique. Blood collected. Flushed with 10 mL NS. 15:56 Nereida Dimas, AGUEDA is Primary Nurse. mb9 15:58 Bed in low position. Call light in reach. Side rails up X 1. Provided Education on: mb9 press call light if needing anything. Client placed on continuous cardiac and pulse oximetry monitoring. NIBP monitoring applied. 15:58 No provider procedures requiring assistance completed. mb9 18:14 Mohan Munoz is Hospitalizing Provider. gb1 18:18 Patient admitted, IV remains in place. mb9 19:04 Report given to AGUEDA Baron. mb9 Administered Medications: 15:30 Drug: NS 0.9% IV 1000 ml IV at 1 bolus Per protocol; 1000 mL bolus Route: IV; Rate: 1 mb9 bolus; Site: left forearm; 17:46 Follow up: Response: No adverse reaction; IV Status: Completed infusion mb9 Medication: 15:58 VIS not applicable for this client. mb9 Outcome: 18:15 Decision to Hospitalize by Provider. gb1 20:30 Admitted to ER Hold. Please see [facility] for further documentation. rg5 20:30 Condition: stable rg5 20:30 Instructed on the need for admit, 01/13 11:19 Patient left the ED. kc6 Signatures: Dispatcher [employer] EDMS Jcarlos Clark Kaitlyn, RN RN kc6 Nereida Dimas RN RN mb9 Whit Herbert Gina, MD MD gb1 Padmaja Torres RN RN tm6 Tod Alaniz, RN RN rg5
--- NOTE | 2024-01-13 18:19 | P.HP ---
Certification for Inpatient Patient admitted to: Observation With expected LOS: <2 Midnights Practitioner: I am a practitioner with admitting privileges, knowledge of patient current condition, hospital course, and medical plan of care. Services: Services provided to patient in accordance with Admission requirements found in Title 42 Section 412.3 of the Code of Federal Regulations Patient History Date of Service: 01/13/24 Reason for admission: Bloody stool History of Present Illness: 68-year-old male with a history of diabetes, breast cancer currently undergoing radiation therapy presented to to the emergency department because she had a bloody bowel movement. Patient reports fatigue and abdominal discomfort. She states that she has received 9 radiation treatment for her breast cancer and she has a few more weeks to go. CT abdomen pelvis done in the emergency department shows diverticulosis and sequela of acute ascending colon diverticulitis. Blood work shows slightly elevated creatinine, no leukocytosis. Patient does not meet criteria for sepsis. She denied any nausea or vomiting or diarrhea. She denies any constipation. She reports regular bowel movement. Patient is hospitalized for further management. Allergies hydromorphone HCl [From Dilaudid] Allergy (Mild, Verified 01/21/23 09:09) Shortness of breath Penicillins Allergy (Mild, Verified 01/21/23 09:09) delusion lisinopril Allergy (Unknown, Verified 01/21/23 09:09) Hives losartan Allergy (Verified 01/21/23 09:09) Hives metronidazole [From Flagyl] Allergy (Verified 01/21/23 09:09) rash inside mouth Home Medications: Magnesium Oxide [Magnesium] 800 mg PO BID 06/30/18 Metformin ER [Glucophage ER*] 1,000 mg PO BID 06/30/18 Metoprolol Tartrate 50 mg PO BEDTIME 06/30/18 Rosuvastatin [Crestor*] 20 mg PO BEDTIME 06/30/18 Pantoprazole [Protonix Tab*] 40 mg PO DAILY #30 tab 08/29/19 Dapagliflozin Propanediol [Farxiga] 10 mg PO DAILY 07/05/22 Linaclotide [Linzess] 290 mcg PO DAILY 07/05/22 NIFEdipine [Nifedipine ER] 60 mg PO DAILY 07/09/22 Aspirin Chewable [Aspirin Chewable*] 1 tab PO DAILY 08/29/22 Cyclopentolate 2% [Cyclogyl 2%*] 1 gtt RIGHT EYE BID 01/17/23 Dulaglutide [Trulicity] 0.75 mg SQ EVERY 7TH DAY 01/17/23 Ergocalciferol (Vitamin D2) [Vitamin D2] 125 mcg PO DAILY 01/17/23 Glipizide [Glipizide ER] 10 mg PO DAILY 01/17/23 Insulin Detemir [Levemir] 100 units SQ DAILY 01/17/23 Latanoprost 2.5 ml LEFT EYE DAILY 01/17/23 Meloxicam, Submicronized [Meloxicam] 5 mg PO PRN PRN 01/17/23 Polyethylene Glycol 3350 [Miralax] 17 gm PO DAILY 30 Days #30 packet 04/06/23 - Past Medical/Surgical History Diabetic: Yes -: sleep apnea -: HTN -: Diverticulitis -: asthma -: COPD -: NIDDM -: hyperlipidemia -: bowel resection -: - Family History Father -: Hypertension, GI disease, Diabetes, Stroke Mother -: Other (see notes) Notes: dementia Sister -: Lung disease, Cancer Brother -: Lung disease, Cancer - Social History Alcohol use: No CD- Drugs: No Caffeine use: No Review of Systems Other: Patient denied any fever, she denied any headache. She denied any shortness of breath or chest pain. Except as documented, all other systems reviewed and negative. Physical Examination - Physical Exam General: Alert, In no apparent distress, Oriented x3, Obese HEENT: Normocephalic, Mucous membr. moist/pink, Sclerae nonicteric Neck: Supple, JVD not distended Respiratory: Clear to auscultation bilaterally, Normal air movement Cardiovascular: No edema, Normal S1 S2, Other (Tachycardia) Capillary refill: <2 Seconds Gastrointestinal: Normal bowel sounds, Soft and benign, Non-distended, No tenderness Musculoskeletal: No swelling, No tenderness Integumentary: No rashes, No cyanosis Neurological: Normal speech, Normal strength at 5/5 x4 extr, Cranial nerves 3-12 intact Lymphatics: No axilla or inguinal lymphadenopathy - Studies Laboratory Data (last 24 hrs) 01/13/24 01/13/24 14:20 14:20 WBC 10.20 Hgb 12.9 Hct 40.2 Plt Count 292 Sodium 139 Potassium 5.0 BUN 31 H Creatinine 1.35 H Glucose 256 H Total Bilirubin 0.5 AST 13 L ALT 32 Alkaline Phosphatase 95 Lipase 51 Assessment and Plan - Problems (Diagnosis) (1) Diverticular hemorrhage Current Visit: Yes Status: Acute (2) Fatigue due to radiation therapy Current Visit: Yes Status: Acute (3) History of diverticulitis Current Visit: No Status: Acute (4) Type 2 diabetes mellitus Current Visit: No Status: Acute - Plan Diverticular bleed History of diverticulitis Place patient under observation Supportive measures with IV hydration Empiric IV meropenem Analgesics as needed Clear liquid diet Stool softeners. Diabetes mellitus type 2 Insulin sliding scale Resume home dose long-acting insulin. Essential hypertension Resume home antihypertensives. Radiation-induced fatigue History of breast cancer Outpatient therapy recommended. DVT prophylaxis: SCD Advanced directive: Full code - Advance Directives Does patient have a Living Will: No Does patient have a Durable POA for Healthcare: No
[2024-01-13] MEDS: NA CHLORIDE 0.9% 1,000 ML IV SCH (19:00)
[2024-01-13] MEDS: DOCUSATE NA 100 MG CAP PO SCH (21:00)
[2024-01-13] MEDS: INSULIN REGULAR (HUMAN) 100 UNIT/ML SQ SCH (21:00)
[2024-01-13] MEDS ORDERED: Meropenem 1000 MG/VIAL IV ONE (22:51)
[2024-01-13] MEDS ORDERED: NA CHLORIDE 0.9% 250 ML ONE (22:52)
[2024-01-13] MEDS ORDERED: DOCUSATE NA 100 MG CAP PO ONE (22:52)
[2024-01-14] MEDS: Meropenem 1,000 MG in NA CHLORIDE 0.9% 100 ML IV SCH (01:00)
[2024-01-14] MEDS ORDERED: HYDRALAZINE HCL 20 MG/ML VIAL IV PRN (01:27)
[2024-01-14] MEDS ORDERED: MORPHINE 2 MG/ML SYR IV PRN (01:27)
[2024-01-14] MEDS ORDERED: KETOROLAC 30 MG/ML INJ IV PRN (01:28)
[2024-01-14 02:26] VITALS: BMI 28.6
[2024-01-14 05:03] LABS: Absolute Eosinophils 0.2 K/uL (0-0.5); Absolute Lymphocytes (CBC) 1.8 K/uL (0.7-4.9); Absolute Monocytes 0.6 K/uL (0.1-1.3); Absolute Neutrophil 4.2 K/uL (1.8-8.0); Basophils % 0.7 % (0-1.3); Eosinophils % 2.8 % (0-4.4); Hematocrit 35.5 % (36.0-45.0); Hemoglobin 11.3 g/dL (12.0-15.0); MCHC 31.8 g/dL (32.0-36.0); MCV 81.8 fL (80-100); MPV 8.4 fL (7.6-11.3); Monocytes % 8.9 % (3.3-12.3); Neutrophils % 61.6 % (41.7-73.7); Platelets 246 thou/uL (152-406); RBC Red Blood Cell Count 4.34 M/uL (3.86-4.86); Red Cell Distribution Width 15.4 % (12.1-15.2)
[2024-01-14 05:22] LABS: Magnesium 1.8 mg/dL (1.6-2.4); Phosphorus 4.2 mg/dL (2.5-4.9)
[2024-01-14] MEDS ORDERED: NA CHLORIDE 0.9% 1,000 ML ONE (08:17)
[2024-01-14] MEDS ORDERED: Meropenem 1000 MG/VIAL IV ONE (08:17)
[2024-01-14] MEDS ORDERED: DOCUSATE NA 100 MG CAP PO ONE (08:17)
[2024-01-14] MEDS ORDERED: NA CHLORIDE 0.9% 100 ML ONE (08:17)
[2024-01-14] MEDS ORDERED: HYDROCODONE/APAP 5/325 MG TAB ONE (09:04)
[2024-01-14] MEDS: HYDROCODONE/APAP 5/325 MG TAB PO PRN (09:10)
--- NOTE | 2024-01-14 10:37 | P.DS ---
Admission Date: 01/13/24 Discharge Date: 01/14/24 Disposition: ROUTINE DISCHARGE Discharge Condition: FAIR Reason for Admission: Bloody stool - Problems (1) Diverticular hemorrhage Status: Acute (2) Fatigue due to radiation therapy Status: Acute (3) History of diverticulitis Status: Acute (4) Type 2 diabetes mellitus Status: Acute Brief History of Present Illness: 68-year-old male with a history of diabetes, breast cancer currently undergoing radiation therapy presented to to the emergency department because she had a bloody bowel movement. Patient reports fatigue and abdominal discomfort. She states that she has received 9 radiation treatment for her breast cancer and she has a few more weeks to go. CT abdomen pelvis done in the emergency department shows diverticulosis and sequela of acute ascending colon diverticulitis. Blood work shows slightly elevated creatinine, no leukocytosis. Patient does not meet criteria for sepsis. She denied any nausea or vomiting or diarrhea. She denies any constipation. She reported regular bowel movement. Patient was hospitalized for further management. Hospital Course: Patient was placed under observation on the medical floor, treated with supportive measures including IV hydration. She was also treated with IV antibiotics. Patient had no further bowel movement and no hematochezia or melena. She was not septic. She tolerated diet and has been ambulatory. Abdomen is benign on examination. Patient is discharged with oral Levaquin. Patient informed to follow-up with GI(Dr. Gomez) as outpatient. Vital Signs/Physical Exam: Temp Pulse Resp BP Pulse Ox 98.0 F 99 H 18 145/77 H 93 01/14/24 08:00 01/14/24 08:00 01/14/24 10:05 01/14/24 08:00 01/14/24 10:05 General: Alert, In no apparent distress, Oriented x3 HEENT: Mucous membr. moist/pink Neck: JVD not distended Respiratory: Clear to auscultation bilaterally, Normal air movement Cardiovascular: No edema, Regular rate/rhythm, Normal S1 S2 Gastrointestinal: Normal bowel sounds, Soft and benign, Non-distended, No tenderness Musculoskeletal: No swelling, No tenderness Integumentary: No rashes, No cyanosis Neurological: Normal strength at 5/5 x4 extr, Cranial nerves 3-12 intact Laboratory Data at Discharge: WBC 6.80 thou/uL (4.3-10.9) 01/14/24 04:31 Hgb 11.3 g/dL (12.0-15.0) L D 01/14/24 04:31 Hct 35.5 % (36.0-45.0) L 01/14/24 04:31 Plt Count 246 thou/uL (152-406) 01/14/24 04:31 Sodium 139 mEq/L (136-145) 01/14/24 04:31 Potassium 4.0 mEq/L (3.5-5.1) D 01/14/24 04:31 BUN 25 mg/dL (7-18) H 01/14/24 04:31 Creatinine 0.84 mg/dL (0.55-1.02) 01/14/24 04:31 Glucose 157 mg/dL (74-106) H 01/14/24 04:31 Phosphorus 4.2 mg/dL (2.5-4.9) 01/14/24 04:31 Magnesium 1.8 mg/dL (1.6-2.4) 01/14/24 04:31 Total Bilirubin 0.5 mg/dL (0.2-1.0) 01/13/24 14:20 AST 13 U/L (15-37) L 01/13/24 14:20 ALT 32 U/L (13-56) 01/13/24 14:20 Alkaline Phosphatase 95 U/L (45-117) 01/13/24 14:20 Lipase 51 U/L (13-75) 01/13/24 14:20 Home Medications: Magnesium Oxide [Magnesium] 800 mg PO BID 06/30/18 Metformin ER [Glucophage ER*] 1,000 mg PO BID 06/30/18 Metoprolol Tartrate 50 mg PO BEDTIME 06/30/18 Rosuvastatin [Crestor*] 20 mg PO BEDTIME 06/30/18 Pantoprazole [Protonix Tab*] 40 mg PO DAILY #30 tab 08/29/19 Dapagliflozin Propanediol [Farxiga] 10 mg PO DAILY 07/05/22 Linaclotide [Linzess] 290 mcg PO DAILY 07/05/22 NIFEdipine [Nifedipine ER] 60 mg PO DAILY 07/09/22 Aspirin Chewable [Aspirin Chewable*] 1 tab PO DAILY 08/29/22 Cyclopentolate 2% [Cyclogyl 2%*] 1 gtt RIGHT EYE BID 01/17/23 Dulaglutide [Trulicity] 0.75 mg SQ EVERY 7TH DAY 01/17/23 Ergocalciferol (Vitamin D2) [Vitamin D2] 125 mcg PO DAILY 01/17/23 Glipizide [Glipizide ER] 10 mg PO DAILY 01/17/23 Insulin Detemir [Levemir] 100 units SQ DAILY 01/17/23 Latanoprost 2.5 ml LEFT EYE DAILY 01/17/23 Polyethylene Glycol 3350 [Miralax] 17 gm PO DAILY 30 Days #30 packet 04/06/23 Hydrocodone 5/APAP 325 [Greig 5/325*] 1 tab PO Q6H PRN #12 tab 01/14/24 levoFLOXacin [Levaquin] 750 mg PO DAILY #5 tab 01/14/24 New Medications: levoFLOXacin [Levaquin] 750 mg PO DAILY #5 tab Hydrocodone 5/APAP 325 [Greig 5/325*] 1 tab PO Q6H PRN #12 tab PRN Reason: Pain Scale 5-7 (Moderate) Diet: ADA (Soft diet and progress as tolerated) Activity: Fall precautions Followup: NONE,NONE [Primary Care Provider] - 1 Week
[2024-01-14 23:35] VITALS: TEMP 97; O2SAT 100
[2024-01-14 23:37] VITALS: BP 137/85
== END 2024-01-14 11:15 | disposition home or self-care (01) ==
LOC: ER 12:49 → ERHOLD 18:02
PROVIDERS: ADMIT Internal Medicine; ATTEND Internal Medicine
DX: K57.33 Diverticulitis of large intestine without perforation or abscess with bleeding (principal); E11.9 Type 2 diabetes mellitus without complications; R53.83 Other fatigue; Z92.3 Personal history of irradiation; Z85.3 Personal history of malignant neoplasm of breast
CPT/HCPCS: 85025 ×2; 81001; 80048; 36415; 83735; 84100; 82947 ×2; 83690; 80053; 74174; Q9967; J2185 ×2; J7050; J7030 ×3; 96360; 96361; 99285; G0378

== ENCOUNTER 2024-01-18 23:53 | Emergency (ER) | payer OTHER ==
--- OUTSIDE RECORDS SUMMARY | 2024-01-18 23:58 | XMS REPORT | Clinical Summary ---
Author Name Unknown Organization [facility] [place] Address [address] [place] [address] Care Team Providers Care Tour Manager Name Role Phone Kristin Reyes MD Primary Care Provider [phone] Meredith Tineo MD Unavailable [phone] July RN Unavailable [phone] Alexander Figueroa MD Primary Care Provider [phone] Allergies Active Allergy Reactions Criticality Noted Date [...] Department Care Team Description 10/15/2023 Telephone [facility] [place] - Medical Oncology [address] [facility], 5th [place] [address] Bill July F, RN 10/08/2023 Telephone Breast [place] - [facility]cology [address] [facility], 5th [place] [address] Bill July, RN 10/02/[address] [facility] - Medical Oncology [address] [place] [address], 5th [place] [address] Bill July, RN 10/01/2023 2:50 AM CDT Ancillary Procedure [facility] [address] [place] [address] [id number] Kristin Reyes MD Cancer 10/01/2023 2:45 AM CDT Ancillary Procedure Image [facility] [address] [place] [address] [id number] Kristin Reyes MD Cancer 10/01/2023 2:40 AM CDT Ancillary Procedure Image [facility] [address] [place] [address] [id number] Kristin Reyes MD Cancer 10/01/2023 2:35 AM CDT Ancillary Procedure Image Library [address] [place] [address] [id number] Kristin Reyes MD Cancer 10/01/2023 2:30 AM CDT Ancillary Procedure Image [facility] [address] [place] [address] [id number] Kristin Reyes MD Cancer 10/01/2023 2:25 AM CDT Ancillary Procedure [facility] [address] [place] [address] [id number] Kristin Reyes MD Cancer 10/01/2023 2:20 AM CDT Ancillary Procedure [facility] [address] [place] [address] [id number] Kristin Reyes MD Cancer 10/01/2023 2:15 AM CDT Ancillary Procedure [facility] [address] [place] [address] [id number] Kristin Reyes MD Cancer 10/01/2023 2:10 AM CDT Ancillary Procedure [facility] [address] [place] [address] [id number] Kristin Reyes MD Cancer 10/01/2023 2:05 AM CDT Ancillary Procedure [facility] [address] [place] [address] [id number] Kristin Reyes MD Cancer 10/01/2023 2:00 AM CDT Ancillary Procedure [facility] [address] [place] [address] [id number] Kristin Reyes MD Cancer 10/01/2023 1:55 AM CDT Ancillary Procedure [facility] [address] [place] [address] [id number] Kristin Reyes MD Cancer 10/01/2023 1:50 AM CDT Ancillary Procedure [facility] [address] [place] [address] [id number] Kristin Reyes MD Cancer 10/01/2023 1:45 AM CDT Ancillary Procedure [facility] [address] [place] [address] [id number] Kristin Reyes MD Cancer 10/01/2023 1:40 AM CDT Ancillary Procedure Image [facility] [address] [place] [address] [id number] Kristin Reyes MD Cancer 10/01/2023 1:35 AM CDT Ancillary Procedure Image Library [address] [place] [address] [id number] Kristin Reyes MD Cancer 10/01/2023 1:30 AM CDT Ancillary Procedure Image Library [address] [place] [address] [id number] Kristin Reyes MD Cancer 10/01/2023 1:25 AM CDT Ancillary Procedure Image [facility] [address] [place] [address] [id number] Kristin Reyes MD Cancer 10/01/2023 1:20 AM CDT Ancillary Procedure Image Library [address] [place] [address] [id number] Kristin Reyes MD Cancer 10/01/2023 1:15 AM CDT Ancillary Procedure Image Library [address] [place] [address] [id number] Kristin Reyes MD Cancer 10/01/2023 1:10 AM CDT Ancillary Procedure Image Library [address] [place] [address] [id number] Kristin Reyes MD Cancer 10/01/2023 1:05 AM CDT Ancillary Procedure Image [facility] [address] [place] [address] [id number] Kristin Reyes MD Cancer 10/01/2023 1:00 AM CDT Ancillary Procedure Image [facility] [address] [place] [address] [id number] Kristin Reyes MD Cancer 10/01/2023 12:55 AM CDT Ancillary Procedure Image Library [address] [place] [address] [id number] Kristin Reyes MD Cancer 10/01/2023 12:50 AM CDT Ancillary Procedure Image Library [address] [place] [address] [id number] Kristin Reyes MD Cancer 10/01/2023 12:45 AM CDT Ancillary Procedure Image Library [address] [place] [address] [id number] Kristin Reyes MD Cancer 10/01/2023 12:40 AM CDT Ancillary Procedure Image Library [address] [place] [address] [id number] Kristin Reyes MD Cancer 10/01/2023 12:35 AM CDT Ancillary Procedure Image Library [address] [place] [address] [id number] Kristin Reyes MD Cancer 10/01/2023 12:30 AM CDT Ancillary Procedure Image Library [address] [place] [address] [id number] Kristin Reyes MD Cancer 10/01/2023 12:25 AM CDT Ancillary Procedure Image Library [address] [place] [address] [id number] Kristin Reyes MD Cancer 10/01/2023 12:20 AM CDT Ancillary Procedure Image Library [address] [place] [address] [id number] Kristin Reyes MD Cancer 10/01/2023 12:15 AM CDT Ancillary Procedure Image Library [address] [place] [address] [id number] Kristin Reyes MD Cancer 10/01/2023 12:10 AM CDT Ancillary Procedure Image Library [address] [place] [address] [id number] Kristin Reyes MD Cancer 10/01/2023 12:05 AM CDT Ancillary Procedure Image Library [address] [place] [address] [id number] Kristin Reyes MD Cancer 10/01/2023 Ancillary Procedure Image Library [address] [place] [address] [id number] Kristin Reyes MD Cancer 09/30/2023 9:55 PM CDT Ancillary Procedure Image Library [address] [place] [address] [id number] Kristin Reyes MD Cancer 09/30/2023 9:50 PM CDT Ancillary Procedure Image Library [address] [place] [address] [id number] Kristin Reyes MD Cancer 09/30/2023 9:45 PM CDT Ancillary Procedure Image Library [address] [place] [address] [id number] Kristin Reyes MD Cancer 09/30/2023 9:40 PM CDT Ancillary Procedure Image [facility] [address] [place] [address] [id number] Kristin Reyes MD Cancer 09/30/2023 9:35 PM CDT Ancillary Procedure Image Library [address] [place] [address] [id number] Kristin Reyes MD Cancer 09/30/2023 9:30 PM CDT Ancillary Procedure Image Library [address] [place] [address] [id number] Kristin Reyes MD Cancer 09/30/2023 9:25 PM CDT Ancillary Procedure Image Library [address] [place] [address] [id number] Kristin Reyes MD Cancer 09/30/2023 9:20 PM CDT Ancillary Procedure Image Library [address] [place] [address] [id number] Kristin Reyes MD Cancer 09/30/2023 9:15 PM CDT Ancillary Procedure Image Library [address] [place] [address] [id number] Kristin Reyes MD Cancer 09/30/2023 9:10 PM CDT Ancillary Procedure Image Library [address] [place] [address] [id number] Kristin Reyes MD Cancer 09/30/2023 9:05 PM CDT Ancillary Procedure Image Library [address] [place] [address] [id number] Kristin Reyes MD Cancer 09/30/2023 9:00 PM CDT Ancillary Procedure Image Library [address] [place] [address] [id number] Kristin Reyes MD Cancer 09/30/2023 8:55 PM CDT Ancillary Procedure Image Library [address] [place] [address] [id number] Kristin Reyes MD Cancer 09/30/2023 8:50 PM CDT Ancillary Procedure Image Library [address] [place] [address] [id number] Kristin Reyes MD Cancer 09/30/2023 8:45 PM CDT Ancillary Procedure Image Library [address] [place] [address] [id number] Kristin Reyes MD Cancer 09/30/2023 8:40 PM CDT Ancillary Procedure Image Library [address] [place] [address] [id number] Kristin Reyes MD Cancer 09/30/2023 8:35 PM CDT Ancillary Procedure Image Library [address] [place] [address] [id number] Kristin Reyes MD Cancer 09/30/2023 8:30 PM CDT Ancillary Procedure Image Library [address] [place] [address] [id number] Kristin Reyes MD Cancer 09/30/2023 8:25 PM CDT Ancillary Procedure Image Library [address] [place] [address] [id number] Kristin Reyes MD Cancer 09/30/2023 8:20 PM CDT Ancillary Procedure Image Library [address] [place] [address] [id number] Kristin Reyes MD Cancer 09/30/2023 8:15 PM CDT Ancillary Procedure Image Library [address] [place] [address] [id number] Kristin Reyes MD Cancer 09/30/2023 8:05 PM CDT Ancillary Procedure Image Library [address] [place] [address] [id number] Kristin Reyes MD Cancer 09/30/2023 8:00 PM CDT Ancillary Procedure Image Library [address] [place] [address] [id number] Kristin Reyes MD Cancer 09/18/2023 Ancillary Procedure Image Library [address] [place] [address] [id number] Kristin Reyes MD Cancer after 01/18/2023 Surgical History Surgery Date Site/Laterality Comments COLONOSCOPY [...] Cancer [facility] MAMMO BREAST BIOPSY Routine 09/02/19 24 7:56 AM CDT Cancer [facility] MAMMOGRAPHY UNILATERAL [...] [facility]SI BONE DENSITY STUDY Routine 2:11 PM POSTING 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 Meredith GARCIA OUTSIDE IMAGE OR DERABLES [facility] * [facility] MAMMOGRAPHY UNILATERAL RIGHT (09/02/2023 7:56 AM CDT) Narrative [facility] - 10/01/2023 7:56 AM CDT Study acquired at another institution. For comparison only. No MD Canales originated interpretation requested or available. Meredith Tineo MD IMG OUTSIDE IMAGE OR DERABLES Performing Organization Address [facility] de Phone Number [facility] * [facility] Mammo Breast Biopsy (09/02/2023 7:56 AM CDT) Narrative [facility] - 10/01/2023 7:56 AM CDT Study acquired at another institution. For comparison only. No MD Canales originated interpretation requested or available. Meredith Tineo MD IMG OUTSIDE IMAGE OR DERABLES Performing Organization Address [facility] de Phone Number [facility] * [facility]SI US Breast Biopsy (09/02/2023 7:56 AM CDT) Narrative [facility] - 10/01/2023 7:56 AM CDT Study acquired at another institution. For comparison only. No MD Canales originated interpretation requested or available. Meredith Tineo MD IMG OUTSIDE IMAGE OR DERABLES Performing Organization Address [facility] de Phone Number [facility] * OSI [...] Tineo MD IMG OUTSIDE IMAGE OR DERABLES [facility] * [facility]SI US Breast (08/13/2023 7:56 AM CDT) Narrative [facility] - 10/01/2023 7:57 AM CDT Study acquired at another institution. For comparison only. No MD Canales originated interpretation requested or available. Meredith Tineo MD IMG OUTSIDE IMAGE OR DERABLES [facility] * OSI CT Abdomen and Pelvis [...] [facility] Bone Density Study (02/17/2023 2:11 PM POSTING MACHINE OPERATOR) Narrative Systemgenerated, Documentation - 09/30/2023 2:11 PM CDT Study acquired at another institution. For comparison only. No MD [facility] originated interpretation requested or available. Meredith Tineo MD IMG OUTSIDE IMAGE OR DERABLES after 01/18/2023 Care Teams Tour Manager Relationship Specialty Start Date End Date Kristin Reyes MD [address] [place] [address] [id number] [email or web address] PCP - General Medical Oncology 09/22/19 10/05/23 Meredith Tineo MD [address] [place] [address] PCP - External Primary Care Provider 10/02/23 Alexander Figueroa MD [address] [place] [address] [phone] [email or web address] PCP - General Breast Medical Oncology 10/06/23 Polina Khan, RN [facility] [place] [address] [email or web address] Intake Nurse Navigator Nursing 10/02/23 10/14/23
[2024-01-19] MEDS ORDERED: DIPHENHYDRAMINE 50 MG/ML VIAL ONE (00:32)
[2024-01-19] MEDS ORDERED: droPERidol 5 MG/2 ML VIAL ONE (00:32)
[2024-01-19] MEDS ORDERED: NA CHLORIDE 0.9% 1,000 ML ONE (00:33)
[2024-01-19 00:52] LABS: Absolute Eosinophils 0.2 K/uL (0-0.5); Absolute Lymphocytes (CBC) 2.6 K/uL (0.7-4.9); Absolute Monocytes 0.6 K/uL (0.1-1.3); Absolute Neutrophil 7.2 K/uL (1.8-8.0); Basophils % 0.3 % (0-1.3); Eosinophils % 1.8 % (0-4.4); Hematocrit 29.6 % (36.0-45.0); Hemoglobin 9.7 g/dL (12.0-15.0); Lymphocytes % 24.5 % (15.3-44.8); MCH 26.5 pg (27.0-35.0); MCHC 32.6 g/dL (32.0-36.0); MCV 81.3 fL (80-100); MPV 8.2 fL (7.6-11.3); Monocytes % 5.7 % (3.3-12.3); Neutrophils % 67.7 % (41.7-73.7); Nucleated Red Blood Cells % 0.1 % (0-0); Platelets 286 thou/uL (152-406); RBC Red Blood Cell Count 3.64 M/uL (3.86-4.86); Red Cell Distribution Width 15.4 % (12.1-15.2)
[2024-01-19 00:54] LABS: PT Prothrombin Time 10.5 SECONDS (9.4-12.5); PTT, Activated Partial Thromb 25.2 SECONDS (24.3-36.9); Protime INR 0.94
[2024-01-19 01:07] LABS: Anion Gap 12.8 mEq/L (5.0-15.0); Potassium 3.8 mEq/L (3.5-5.1); Troponin High Sensitivity 7.7 pg/mL (<58.9)
--- NOTE | 2024-01-19 02:21 | ER ---
Nurse's Notes [facility] Name: Amy Montalvo Age: 68 yrs Sex: Female : 1955 Arrival Date: 01/18/2024 Time: 23:53 Bed 7 Private MD: Diagnosis: Diverticulosis of intestine, part unspecified, without perforation or abscess with bleeding Presentation: 01/18 00:17 Chief complaint: Patient states: has been experiencing epigastric pain radiating to the al5 rest of the abdomen, nausea, diarrhea, and rectal bleeding, was seen for it and diagnosed with diverticulosis. today patient became weak after using the restroom and had a syncopal episode landing on her mattress. Coronavirus screen: At this time, the client does not indicate any symptoms associated with coronavirus-19. Ebola Screen: No symptoms or risks identified at this time. No acute neurological deficit is noted. Pre-hospital glucose is not applicable to this patient. Initial Sepsis Screen: Does the patient meet any 2 criteria? No. Patient's initial sepsis screen is negative. Does the patient have a suspected source of infection?. Risk Assessment: Do you want to hurt yourself or someone else? Patient reports no desire to harm self or others. Onset of symptoms was January 19, 2024. 00:17 Method Of Arrival: Wheelchair al5 00:17 Acuity: FARIDA 3 al5 Triage Assessment: 00:21 General: Appears in no apparent distress. uncomfortable, ill, Behavior is calm, al5 cooperative. Pain: Complains of pain in abdomen Pain currently is 9 out of 10 on a pain scale. EENT: No signs and/or symptoms were reported regarding the EENT system. Neuro: Level of Consciousness is awake, alert, obeys commands, Oriented to person, place, time, situation, Reports a syncopal episode. Cardiovascular: Capillary refill < 3 seconds Patient's skin is warm and dry. Respiratory: Airway is patent Respiratory effort is even, unlabored, Respiratory pattern is regular, symmetrical. GI: Abdomen is round non-distended, Reports lower abdominal pain, upper abdominal pain, diarrhea, rectal bleeding, bloody stool, epigastric pain, nausea. : No signs and/or symptoms were reported regarding the genitourinary system. Derm: Skin is intact, Skin is pink, warm \T\ dry. normal. Musculoskeletal: No signs and/or symptoms reported regarding the musculoskeletal system. Stroke Activation: Physician: ED Attending; Name: ; Notified At: ; Arrived At: Physician: Mid-Level Provider; Name: ; Notified At: ; Arrived At: Physician: [not used]; Name: ; Notified At: ; Arrived At: Physician: [not used]; Name: ; Notified At: ; Arrived At: Physician: [not used]; Name: ; Notified At: ; Arrived At: 00:17 no stroke al5 Historical: - Allergies: 00:28 Demerol; al5 00:28 Dilaudid; al5 00:28 Flagyl; al5 00:28 Lisinopril; al5 00:28 PENICILLINS; al5 - Home Meds: 00:28 aspirin 81 mg Oral TbEC once daily [Active]; glimepiride 2 mg Oral tab twice a day al5 [Active]; Linzess 290 mcg Oral cap once daily [Active]; metformin 1 Oral TG24 2 times per day [Active]; metoprolol tartrate 100 mg Oral tab once daily [Active]; nifedipine 60 mg Oral tr24 once daily [Active]; rosuvastatin Oral once daily [Active]; Vitamin D Oral daily [Active]; - PMHx: 00:28 Diabetes - NIDDM; Hypertension; Sleep Apnea; Hyperlipidemia; Diverticulitis; breast al5 cancer (Sleep Apnea); - PSHx: 00:28 bowel resection; section; Cholecystectomy; al5 - Immunization history:: Adult Immunizations up to date. - Infectious Disease History:: Denies. - Social history:: Smoking status: Patient denies any tobacco usage or history of. Screenin:34 [facility] ED Fall Risk Assessment (Adult) History of falling in the last 3 months, al5 including since admission Yes- physiologic fall (2 pts) Confusion or Disorientation No (0 pts) Intoxicated or Sedated No (0 pts) Impaired Gait Yes (1 pt) Mobility Assist Device Used Yes (1 pt) Altered Elimination No (0 pt) Score/Fall Risk Level 3 or more points = High Risk Oriented to surroundings, Maintained a safe environment, Hourly rounding (assess needs \T\ fall precautionary measures) done, Apply high fall risk patient identification: yellow non skid footwear/ fall signage. Abuse screen: Denies threats or abuse. Denies injuries from another. Nutritional screening: No deficits noted. Tuberculosis screening: No symptoms or risk factors identified. Assessment: 00:30 VAN Scoring: Arm Drift: Patients demonstrates NO arm weakness. Patient is VAN Negative. al5 Wheeler Swallow Protocol Brief Cognitive Screen What is your name? Normal, Where are you right now? Normal, What year is it? Normal. Oral Mechanism Examination Facial Symmetry: Normal, Motion: Normal, Lip Closure: Normal, 3 oz Water Swallow Challenge: Pt able to drink all water without stopping, coughing, choking or throat clearing: Yes Result: PASS MD Notified: Angel George MD. Wheeler Swallow Protocol Exclusion Criteria: Unable to remain alert for testing: No NPO for medical/surgical reason by provider order No Head-of-bed restricted <30 degrees Tracheostomy tube present No No thin liquids due to preexisting dysphagia/baseline modified diet thickened liquids No. TNKase (Tenecteplase) Screening: Not Applicable. 00:33 Reassessment: see triage assessment. al5 Vital Signs: 00:17 BP 103 / 88; Pulse 97; Resp 18; Temp 97.4; Pulse Ox 96% on R/A; Weight 84.37 kg; Height al5 5 ft. 7 in. ; Pain 9/10; 01:25 BP 109 / 82; Pulse 86; Resp 17; Pulse Ox 97% ; dd2 02:54 BP 115 / 79; Pulse 81; Resp 17; Pulse Ox 97% ; dd2 00:17 Body Mass Index 29.13 (84.37 kg, 170.18 cm) al5 00:17 Pain Scale: Adult al5 NIH Stroke Scale Scores: 00:30 NIHSS Score: 0 al5 ED Course: 01/17 23:56 Patient arrived in ED. gm2 23:57 Angel George MD is Attending Physician. ec2 01/18 00:17 Rissa Gauthier, AGUEDA is Primary Nurse. al5 00:20 EKG done, by ED staff, reviewed by Angel George MD. dd2 00:21 Triage completed. al5 00:29 Arm band placed on right wrist. Patient placed in the treatment room, on a stretcher. al5 00:35 No provider procedures requiring assistance completed. al5 00:35 Patient has correct armband on for positive identification. Placed in gown. Bed in low al5 position. Call light in reach. Side rails up X2. Provided Education on: plan of care. 00:40 Basic Metabolic Panel Sent. al5 00:40 CBC with Diff Sent. al5 00:40 PT-INR Sent. al5 00:40 NT PRO-BNP Sent. al5 00:40 Troponin HS Sent. al5 00:41 Type And Screen Sent. al5 00:41 Ptt, Activated Sent. al5 00:59 Chest Single View In Process Unspecified. EDMS 01:47 CT Abd/Pelvis - IV Contrast Only In Process Unspecified. EDMS 02:56 IV discontinued, intact, bleeding controlled, No redness/swelling at site. Pressure dd2 dressing applied. Administered Medications: 00:45 Drug: NS 0.9% IV 1000 ml IV at 1 bolus Per protocol; 1000 mL bolus Route: IV; Rate: 1 dd2 bolus; Site: left antecubital; 01:00 Follow up: Response: No adverse reaction dd2 01:45 Follow up: IV Status: Completed infusion; IV Intake: 1000ml dd2 00:45 Drug: Droperidol IVP 1.25 mg IVP once Route: IVP; Site: left antecubital; dd2 01:00 Follow up: Response: No adverse reaction dd2 00:45 Drug: diphenhydrAMINE IVP 25 mg IVP once Route: IVP; Site: left antecubital; dd2 01:00 Follow up: Response: No adverse reaction dd2 Medication: 00:35 VIS not applicable for this client. al5 Point of Care Testin:35 n/a al5 Ranges: Intake: 01:45 IV: 1000ml; Total: 1000ml. dd2 Outcome: 02:20 Discharge ordered by . ec2 02:56 Discharged to home via wheelchair, with family, dd2 02:56 Condition: stable 02:56 Discharge instructions given to patient, family, Instructed on discharge instructions, follow up and referral plans. medication usage, Demonstrated understanding of instructions, follow-up care, medications, Prescriptions given X 1, 02:56 Patient left the ED. dd2 NIH Stroke Scale - NIH Stroke Score Date: 01/19/2024 Time: 00:30 Total Score = 0 10. Dysarthria (speech clarity - read or repeat words) - 0(Normal) 11. Extinction and Inattention (visual/tactile/auditory/spatial/personal) - 0(No abnormality) 1a. Level of Consciousness (LOC) - 0(Alert) 1b. Level of Consciousness (LOC) (Month \T\ Age) - 0(Both) 1c. LOC Commands (Open \T\ Closes Eyes/Claims Service Representative) - 0(Both) 2. Best Gaze (Lateral Gaze Paresis) - 0(Normal) 3. Visual Field Loss - 0(No visual loss) 4. Facial Palsy - 0(Normal) 5a. Left Arm: Motor (10-second hold) - 0(No drift) 5b. Right Arm: Motor (10-second hold) - 0(No drift) 6a. Left Leg: Motor (5-second hold - always test supine) - 0(No drift) 6b. Right Leg: Motor (5-second hold - always test supine) - 0(No drift) 7. Limb Ataxia (finger/nose \T\ heel/bonilla - test with eyes open) - 0(Absent) 8. Sensory Loss (pinprick arms/legs/face) - 0(Normal) 9. Best Language: Aphasia (description/naming/reading) - 0(No aphasia) Initials: al5 Signatures: Dispatcher [employer] EDAngel Ovalle MD MD ec2 Sarah Angel gm2 Rissa Gauthier RN RN al5 ÁNGELA JEAN-BAPTISTE RN RN dd2
--- NOTE | 2024-01-19 02:21 | EDPHYS ---
Physician Documentation [facility] Name: Amy Montalvo Age: 68 yrs Sex: Female : 1955 Arrival Date: 01/18/2024 Time: 23:53 Bed 7 Private MD: ED Physician Angel George HPI: 01/18 00:13 This 68 yrs old Black Female presents to ER via Unassigned with complaints of Rectal ec2 Bleeding, Weakness, Syncope. 00:13 Patient with history of diverticulosis, arrives today for syncopal episode. Complaint ec2 of generalized abdominal pain. Patient reports she feels lightheaded and generally weak. No blood thinners. Reports she been having bloody stools as well. Historical: - Allergies: 00:28 Demerol; al5 00:28 Dilaudid; al5 00:28 Flagyl; al5 00:28 Lisinopril; al5 00:28 PENICILLINS; al5 - Home Meds: 00:28 aspirin 81 mg Oral TbEC once daily [Active]; glimepiride 2 mg Oral tab twice a day al5 [Active]; Linzess 290 mcg Oral cap once daily [Active]; metformin 1 Oral TG24 2 times per day [Active]; metoprolol tartrate 100 mg Oral tab once daily [Active]; nifedipine 60 mg Oral tr24 once daily [Active]; rosuvastatin Oral once daily [Active]; Vitamin D Oral daily [Active]; - PMHx: 00:28 Diabetes - NIDDM; Hypertension; Sleep Apnea; Hyperlipidemia; Diverticulitis; breast al5 cancer (Sleep Apnea); - PSHx: 00:28 bowel resection; section; Cholecystectomy; al5 - Immunization history:: Adult Immunizations up to date. - Infectious Disease History:: Denies. - Social history:: Smoking status: Patient denies any tobacco usage or history of. ROS: 00:13 Constitutional: as per hpi ec2 Exam: 00:13 Constitutional: GEN: NAD Head: atraumatic Eyes: EOMI Ears: External ears are ec2 normal. CV: regular rate LUNGS: no respiratory distress ABD: non-distended, soft, not guarding, nonrigid, nondistended SKIN: no evidence of rashes MSK: no evidence of trauma Vital Signs: 00:17 BP 103 / 88; Pulse 97; Resp 18; Temp 97.4; Pulse Ox 96% on R/A; Weight 84.37 kg; Height al5 5 ft. 7 in. ; Pain 9/10; 01:25 BP 109 / 82; Pulse 86; Resp 17; Pulse Ox 97% ; dd2 02:54 BP 115 / 79; Pulse 81; Resp 17; Pulse Ox 97% ; dd2 00:17 Body Mass Index 29.13 (84.37 kg, 170.18 cm) al5 00:17 Pain Scale: Adult al5 NIH Stroke Scale Scores: 00:30 NIHSS Score: 0 al5 MDM: 01/17 23:57 Patient medically screened. ec2 01/18 00:13 Data reviewed: vital signs. ED course: Patient arrives today for evaluation of ec2 reportedly bloody stools as well as generalized abdominal pain, history of diverticulosis. Examination remarkable for well-appearing nontoxic in which was otherwise in no acute distress. . 00:29 ED course: EKG independently reviewed and interpreted by me, shows normal sinus rhythm, ec2 rate of 93, no acute ST segment elevations, intervals are nonactionable.. 01:24 ED course: Chest x-ray shows no acute intrathoracic process. . ec2 01:26 ED course: Metabolic profile shows slight hyperglycemia, renal dysfunction with a ec2 creatinine of 1.23 and a GFR 48. CBC shows slight anemia. BNP is minimally elevated, troponin within normal ranges. . 02:18 ED course: CT imaging shows diverticulosis.. ec2 02:20 ED course: I discussed results with the patient, patient does have a slight decrease in ec2 her hemoglobin compared to last visit, discussed admission for further GI workup, patient reports marked improvement in her symptoms and is comfortable with return to home. Will discharge home, instructed her to return to the ED if she changes her mind and would like to be admitted. Return precautions given.. 01/17 23:58 Order name: Basic Metabolic Panel; Complete Time: 01:25 ec2 01/17 23:58 Order name: CBC with Diff; Complete Time: 01:25 ec2 01/17 23:58 Order name: NT PRO-BNP; Complete Time: 01:25 ec2 01/17 23:58 Order name: PT-INR; Complete Time: :25 ec2 01/17 23:58 Order name: Troponin HS; Complete Time: 01:25 ec2 01/17 23:58 Order name: Ptt, Activated; Complete Time: 01:25 ec2 01/17 23:58 Order name: Type And Screen; Complete Time: 01:46 ec2 01/17 23:58 Order name: CT Abd/Pelvis - IV Contrast Only ec2 01/18 00:52 Order name: Chest Single View EDMS 01/17 23:58 Order name: Cardiac monitoring; Complete Time: 00:21 ec2 01/17 23:58 Order name: EKG - Nurse/Tech; Complete Time: 00:21 ec2 01/17 23:58 Order name: IV Saline Lock; Complete Time: 00:40 ec2 01/17 23:58 Order name: Labs collected and sent; Complete Time: 00:40 ec2 01/17 23:58 Order name: O2 Per Protocol; Complete Time: 00:21 ec2 01/17 23:58 Order name: O2 Sat Monitoring; Complete Time: 00:21 ec2 Administered Medications: 00:45 Drug: NS 0.9% IV 1000 ml IV at 1 bolus Per protocol; 1000 mL bolus Route: IV; Rate: 1 dd2 bolus; Site: left antecubital; 01:00 Follow up: Response: No adverse reaction dd2 01:45 Follow up: IV Status: Completed infusion; IV Intake: 1000ml dd2 00:45 Drug: Droperidol IVP 1.25 mg IVP once Route: IVP; Site: left antecubital; dd2 01:00 Follow up: Response: No adverse reaction dd2 00:45 Drug: diphenhydrAMINE IVP 25 mg IVP once Route: IVP; Site: left antecubital; dd2 01:00 Follow up: Response: No adverse reaction dd2 Point of Care Testin:35 n/a al5 Ranges: Critical Glucose Levels:Adult <50 mg/dl or >400 mg/dl <40 mg/dl or >180 mg/dl Disposition Summary: 01/19/24 02:20 Discharge Ordered Condition: Stable ec2 Diagnosis - Diverticulosis of intestine, part unspecified, without perforation or abscess with ec2 bleeding Followup: ec2 - With: Private Physician - When: - Reason: Re-evaluation by your physician Discharge Instructions: - Discharge Summary Sheet ec2 - Diverticulosis ec2 Forms: - Medication Reconciliation Form ec2 - Antibiotic Education ec2 - Prescription Opioid Use ec2 - Patient Portal Instructions ec2 - Leadership Thank You Letter ec2 Prescriptions: - Zofran 4 mg Oral Tablet - take 1 tablet ORAL route every 12 hours As needed; 20 tablet; Refills: 0, ec2 Product Selection Permitted NIH Stroke Scale - NIH Stroke Score Date: 01/19/2024 Time: 00:30 Total Score = 0 10. Dysarthria (speech clarity - read or repeat words) - 0(Normal) 11. Extinction and Inattention (visual/tactile/auditory/spatial/personal) - 0(No abnormality) 1a. Level of Consciousness (LOC) - 0(Alert) 1b. Level of Consciousness (LOC) (Month \T\ Age) - 0(Both) 1c. LOC Commands (Open \T\ Closes Eyes/Stone Hand) - 0(Both) 2. Best Gaze (Lateral Gaze Paresis) - 0(Normal) 3. Visual Field Loss - 0(No visual loss) 4. Facial Palsy - 0(Normal) 5a. Left Arm: Motor (10-second hold) - 0(No drift) 5b. Right Arm: Motor (10-second hold) - 0(No drift) 6a. Left Leg: Motor (5-second hold - always test supine) - 0(No drift) 6b. Right Leg: Motor (5-second hold - always test supine) - 0(No drift) 7. Limb Ataxia (finger/nose \T\ heel/bonilla - test with eyes open) - 0(Absent) 8. Sensory Loss (pinprick arms/legs/face) - 0(Normal) 9. Best Language: Aphasia (description/naming/reading) - 0(No aphasia) Initials: al5 Signatures: Dispatcher [employer] EDMS Angel George MD MD ec2 Rissa Gauthier RN RN al5 ÁNGELA JEAN-BAPTISTE RN RN dd2 Corrections: (The following items were deleted from the chart) 01/17 23:58 23:58 BASIC METABOLIC PANEL+C.LAB.BRZ ordered. EDMS EDMS 23:58 23:58 CBC+H.LAB.BRZ ordered. EDMS EDMS 23:58 23:58 PROBNP+C.LAB.BRZ ordered. EDMS EDMS 23:58 23:58 PROTIME (+INR)+COAG.LAB.BRZ ordered. EDMS EDMS 23:58 23:58 Troponin High Sensitivity+C.LAB.BRZ ordered. EDMS EDMS 23:58 23:58 PTT, ACTIVATED+COAG.LAB.BRZ ordered. EDMS EDMS 23:58 23:58 TYPE AND SCREEN+BB.LAB.BRZ ordered. EDMS EDMS 23:58 23:58 Chest Single View+RAD.RAD.BRZ ordered. EDMS EDMS 23:58 23:58 Abdomen Pelvis W Con+CT.RAD.BRZ ordered. EDMS EDMS 01/18 00:16 00:13 Patient with history of diverticulosis, arrives today for syncopal ec2 episode. Complaint of generalized abdominal pain. Patient reports she feels lightheaded and generally weak. No blood thinners.. ec2
--- NOTE | 2024-01-19 02:59 | RAD REPORT ---
EXAM DESCRIPTION: Abdomen Pelvis W Contrast CLINICAL HISTORY: Abd pain;Lower GI bleed COMPARISON: 01/13/2024 TECHNIQUE: CT of the abdomen and pelvis performed following the administration of IV contrast. No ora l contrast. This exam was performed according to our departmental dose-optimization program, which includes automated exposure control, adjustment of the mA and/or kV according to patient size and/or use of iterative reconstruction technique. FINDINGS: Lung Bases: Mild basilar atelectasis or scarring. Abdomen: Liver: The liver has normal contour and density. No suspicious mass. Gallbladder: Surgically absent. Extrahepatic biliary prominence probably due to postcholecystectomy s kinsey. Spleen, Pancreas, and Adrenal Glands: The spleen, pancreas, and adrenal glands are unremarkable. Kidneys: No suspicious mass. No urinary tract calculi. No hydronephrosis. Vasculature: The aorta and IVC have normal caliber and position. Scattered atherosclerotic plaque. No aortic dissection. Portal vein is patent. Stomach: The stomach and duodenum have normal course. Other: No free intraperitoneal air. No free fluid or lymphadenopathy. Pelvis: Bladder: Urinary bladder is unremarkable. Bowel: Postsurgical changes at the rectosigmoid colon. Colon diverticulosis. The stranding at the d istal ascending colons/hepatic flexure has improved from prior. No new acute inflammation identified. No bowel obstruction. Appendix: Normal appendix. Pelvis: Coarse calcifications in the ovaries are stable. No suspicious mass. Bones: No destructive bone lesions identified. IMPRESSION: Colon diverticulosis. Stranding at the distal ascending colon/hepatic flexure has improved from prior . No new acute inflammatory process identified. Electronically signed by: Bina Kim MD 01/19/2024 02:03 AM [facility] Due to temporary technical issues with the [employer] reporting system, reports are being dhara d by the in-house radiologist without review as a courtesy to ensure prompt reporting the interpreting radiologist is fully responsible for the content of the report. Transcribed Date/Time: 01/19/2024 2:59 AM
[2024-01-19 03:01] VITALS: TEMP 97.4
[2024-01-19 03:02] VITALS: O2SAT 97
[2024-01-19 03:04] VITALS: BP 115/79
--- NOTE | 2024-01-19 05:46 | RAD REPORT ---
TIME OF STUDY: 01/19/2024 12:00 AM CDT REASON FOR EXAM: CHEST PAIN COMPARISON: None. FINDINGS: AP view of the chest was obtained, chest 1 view. Lungs: Normal lung volume. No mass, or consolidation. Normal pulmonary vascularity.. Pleura: No pneumothorax. There is no pleural effusion. Heart and Mediastinum: Cardiac silhouette is enlarged. The aorta is atherosclerotic.. Bones: No acute bony abnormality.. IMPRESSION: 1. No acute cardiopulmonary process. Electronically signed by: Scott Mcdowell MD 01/19/2024 01:05 AM CDT RP Due to temporary technical issues with the [employer]ACS[employer] reporting system, reports are being dhara d by the in-house radiologist without review as a courtesy to ensure prompt reporting the interpreting radiologist is fully responsible for the content of the report. Transcribed Date/Time: 01/19/2024 5:45 AM
--- NOTE | 2024-01-19 11:51 | EKG ---
Test Date: 2024-01-19 Test Time: 00:17:32 Pet Counselor: SUAD MEASUREMENT RESULTS: Intervals: Rate: 93 MT: 152 QRSD: 76 QT: 376 QTc: 467 Broussard: P: 53 MT: 152 QRS: 40 T: 67 INTERPRETIVE STATEMENTS: Normal sinus rhythm Normal ECG Compared to ECG 07/05/2023 18:52:26 Sinus tachycardia no longer present Electronically Signed On 01-19-24 11:50:40 CDT by Porfirio Gage
== END 2024-01-19 02:56 | disposition home or self-care (01) ==
LOC: ER 23:53
DX: K57.30 Diverticulosis of large intestine without perforation or abscess without bleeding (principal); E11.9 Type 2 diabetes mellitus without complications; I10 Essential (primary) hypertension; Z79.82 Long term (current) use of aspirin
CPT/HCPCS: 96361; 93005; 85025; 80048; 36415; 86900; 86850; 85610; 86901; 85730; 84484; 83880; 74177; 71045; 96375; 96374; 99285; Q9967; J1200; J1790; J7030

== ENCOUNTER 2024-01-30 16:20 | Inpatient (IN) | payer OTHER ==
--- OUTSIDE RECORDS SUMMARY | 2024-01-30 16:22 | XMS REPORT | Clinical Summary ---
Author Name Unknown Organization [facility] [place] Address [address] [place] [address] Care Team Providers Care Mold Operator Name Role Phone Kristin Reyes MD Primary Care Provider [phone] Meredith Tineo MD Unavailable [phone] July RN Unavailable [phone] Alexander Figueroa MD Primary Care Provider [phone] Allergies Active Allergy Reactions Criticality Noted Date [...] Department Care Team Description 10/15/2023 Telephone [facility] [place] - Medical Oncology [address] [facility], 5th [place] [address] Bill July F, RN 10/08/2023 Telephone [facility] [place] - Medical [facility]cology [address] [facility], 5th [place] [address] Bill July, RN 10/02/2023 Telephone [facility] - Medical Oncology [address] [place] [address], 5th [place] [address] Bill July, RN 10/01/2023 2:50 AM CDT Ancillary Procedure [facility] [address] [place] [id number] Kristin Reyes MD Cancer 10/01/2023 2:45 AM CDT Ancillary Procedure [facility] [address] [place] [address] [id number] Kristin Reyes MD Cancer 10/01/2023 2:40 AM CDT Ancillary Procedure [facility] [address] [place] [address] [id number] Kristin Reyes MD Cancer 10/01/2023 2:35 AM CDT Ancillary Procedure [facility] [address] [place] [address] [id number] Kristin Reyes MD Cancer 10/01/2023 2:30 AM CDT Ancillary Procedure [facility] [address] [place] [address] [id number] Kristin Reyes MD Cancer 10/01/2023 2:25 AM CDT Ancillary Procedure [facility] [address] [place] [address] [id number] Kristin Reyes MD Cancer 10/01/2023 2:20 AM CDT Ancillary Procedure [facility] [address] [place] [address] [id number] Kristin Reyes MD Cancer 10/01/2023 2:15 AM CDT Ancillary Procedure [facility] [address] [place] [address] [id number] Kristin Reyes MD Cancer 10/01/2023 2:10 AM CDT Ancillary Procedure [facility] [address] [place] [address] [id number] Kristin Reyes MD Cancer 10/01/2023 2:05 AM CDT Ancillary Procedure [facility] [address] [place] [address] [id number] Kristin Reyes MD Cancer 10/01/2023 2:00 AM CDT Ancillary Procedure [facility] [address] [place] [address] [id number] Kristin Reyes MD Cancer 10/01/2023 1:55 AM CDT Ancillary Procedure [facility] [address] [place] [address] [id number] Kristin Reyes MD Cancer 10/01/2023 1:50 AM CDT Ancillary Procedure [facility] [address] [place] [address] [id number] Kristin Reyes MD Cancer 10/01/2023 1:45 AM CDT Ancillary Procedure [facility] [address] [place] [address] [id number] Kristin Reyes MD Cancer 10/01/2023 1:40 AM CDT Ancillary Procedure [facility] [address] [place] [address] [id number] Kristin Reyes MD Cancer 10/01/2023 1:35 AM CDT Ancillary Procedure [facility] [address] [place] [address] [id number] Kristin Reyes MD Cancer 10/01/2023 1:30 AM CDT Ancillary Procedure [facility] [address] [place] [address] [id number] Kristin Reyes MD Cancer 10/01/2023 1:25 AM CDT Ancillary Procedure [facility] [address] [place] [address] [id number] Kristin Reyes MD Cancer 10/01/2023 1:20 AM CDT Ancillary Procedure [facility] [address] [place] [address] [id number] Kristin Reyes MD Cancer 10/01/2023 1:15 AM CDT Ancillary Procedure [facility] [address] [place] [address] [id number] Kristin Reyes MD Cancer 10/01/2023 1:10 AM CDT Ancillary Procedure [facility] [address] [place] [address] [id number] Kristin Reyes MD Cancer 10/01/2023 1:05 AM CDT Ancillary Procedure [facility] [address] [place] [address] [id number] Kristin Reyes MD Cancer 10/01/2023 1:00 AM CDT Ancillary Procedure [facility] [address] [place] [address] [id number] Krisitn Reyes MD Cancer 10/01/2023 12:55 AM CDT Ancillary Procedure [facility] [address] [place] [address] [id number] Kristin Reyes MD Cancer 10/01/2023 12:50 AM CDT Ancillary Procedure Image Library [address] [place] [address] [id number] Kristin Reyes MD Cancer 10/01/2023 12:45 AM CDT Ancillary Procedure [facility] [address] [place] [address] [id number] Kristin Reyes MD Cancer 10/01/2023 12:40 AM CDT Ancillary Procedure [facility] [address] [place] [address] [id number] Kristin Reyes MD Cancer 10/01/2023 12:35 AM CDT Ancillary Procedure [facility] [address] [place] [address] [id number] Kristin Reyes MD Cancer 10/01/2023 12:30 AM CDT Ancillary Procedure Image [facility] [address] [place] [address] [id number] Kristin Reyes MD Cancer 10/01/2023 12:25 AM CDT Ancillary Procedure Image Library [address] [place] [address] [id number] Kristin Reyes MD Cancer 10/01/2023 12:20 AM CDT Ancillary Procedure Image Library [address] [place] [address] [id number] Kristin Reyes MD Cancer 10/01/2023 12:15 AM CDT Ancillary Procedure Image [facility] [address] [place] [address] [id number] Kristin Reyes MD Cancer 10/01/2023 12:10 AM CDT Ancillary Procedure Image [facility] [address] [place] [address] [id number] Kristin Reyes MD Cancer 10/01/2023 12:05 AM CDT Ancillary Procedure [facility] [address] [place] [address] [id number] Kristin Reyes MD Cancer 10/01/2023 Ancillary Procedure [facility] [address] [place] [address] [id number] Kristin Reyes MD Cancer 09/30/2023 9:55 PM CDT Ancillary Procedure [facility] [address] [place] [address] [id number] Kristin Reyes MD Cancer 09/30/2023 9:50 PM CDT Ancillary Procedure [facility] [address] [place] [address] [id number] Kristin Reyes MD Cancer 09/30/2023 9:45 PM CDT Ancillary Procedure [facility] [address] [place] [address] [id number] Kristin Reyes MD Cancer 09/30/2023 9:40 PM CDT Ancillary Procedure [facility] [address] [place] [address] [id number] Kristin Reyes MD Cancer 09/30/2023 9:35 PM CDT Ancillary Procedure [facility] [address] [place] [address] [id number] Kristin Reyes MD Cancer 09/30/2023 9:30 PM CDT Ancillary Procedure [facility] [address] [place] [address] [id number] Kristin Reyes MD Cancer 09/30/2023 9:25 PM CDT Ancillary Procedure [facility] [address] [place] [address] [id number] Kristin Reyes MD Cancer 09/30/2023 9:20 PM CDT Ancillary Procedure [facility] [address] [place] [address] [id number] Kristin Reyes MD Cancer 09/30/2023 9:15 PM CDT Ancillary Procedure [facility] [address] [place] [address] [id number] Kristin Reyes MD Cancer 09/30/2023 9:10 PM CDT Ancillary Procedure Image [facility] [address] [place] [address] [id number] Kristin Reyes MD Cancer 09/30/2023 9:05 PM CDT Ancillary Procedure Image [facility] [address] [place] [address] [id number] Krsitin Reyes MD Cancer 09/30/2023 9:00 PM CDT Ancillary Procedure [facility] [address] [place] [address] [id number] Kristin Reyes MD Cancer 09/30/2023 8:55 PM CDT Ancillary Procedure [facility] [address] [place] [address] [id number] Kristin Reyes MD Cancer 09/30/2023 8:50 PM CDT Ancillary Procedure [facility] [address] [place] [address] [id number] Kristin Reyes MD Cancer 09/30/2023 8:45 PM CDT Ancillary Procedure Image [facility] [address] [place] [address] [id number] Kristin Reyes MD Cancer 09/30/2023 8:40 PM CDT Ancillary Procedure Image [facility] [address] [place] [address] [id number] Kristin Reyes MD Cancer 09/30/2023 8:35 PM CDT Ancillary Procedure Image [facility] [address] [place] [address] [id number] Kristin Reyes MD Cancer 09/30/2023 8:30 PM CDT Ancillary Procedure Image Library [address] [place] [address] [id number] Kristin Reyes MD Cancer 09/30/2023 8:25 PM CDT Ancillary Procedure Image Library [address] [place] [address] [id number] Kristin Reyes MD Cancer 09/30/2023 8:20 PM CDT Ancillary Procedure Image Library [address] [place] [address] [id number] Kristin Reyes MD Cancer 09/30/2023 8:15 PM CDT Ancillary Procedure Image Library [address] [place] [address] [id number] Kristin Reyes MD Cancer 09/30/2023 8:05 PM CDT Ancillary Procedure Image Library [address] [place] [address] [id number] Kristin Reyes MD Cancer 09/30/2023 8:00 PM CDT Ancillary Procedure [facility] [address] [place] [address] [id number] Kristin Reyes MD Cancer 09/18/2023 Ancillary Procedure Image Library [address] [place] [address] [id number] Kristin Reyes MD Cancer after 01/30/2023 Surgical History Surgery Date Site/Laterality Comments COLONOSCOPY [...] CDT Cancer [facility]SI BONE DENSITY STUDY Routine 3 2:11 PM SANDFILL OPERATOR SURFACE Cancer after 01/30/2023 Results * OSI Interventional (09/18/2023 2:11 PM [...] OUTSIDE IMAGE OR DERABLES Performing Organization Address [facility] de Phone Number [facility] * [facility]SI Mammo Breast Biopsy (09/02/2023 7:56 AM CDT) Narrative [facility] - 10/01/2023 7:56 AM CDT Study acquired at another institution. For comparison only. No MD Canales originated interpretation requested or available. Meredith Tineo MD IMG OUTSIDE IMAGE OR DERABLES Performing Organization Address [facility] de Phone Number [facility] * OSI US Breast Biopsy (09/02/2023 7:56 AM CDT) Narrative [facility] - 10/01/2023 7:56 AM CDT Study acquired at another institution. For comparison only. No MD Canales originated interpretation requested or available. Meredith Tineo MD IMG OUTSIDE IMAGE OR DERABLES Performing Organization Address [facility] de Phone Number [facility] * OSI US [...] OSI Bone Density Study (02/17/2023 2:11 PM SANDFILL OPERATOR SURFACE) Narrative Systemgenerated, Documentation - 09/30/2023 2:11 PM CDT Study acquired at another institution. For comparison only. No MD Canales originated interpretation requested or available. Meredith Tineo MD IMG OUTSIDE IMAGE OR DERABLES after 01/30/2023 Care Teams Mold Operator Relationship Specialty Start Date End Date Kristin Reyes MD [address] [place] [id number] [email or web address] PCP - General Medical Oncology 09/22/19 10/05/23 Meredith Tineo MD [address] [place] [phone] PCP - External Primary Care Provider 10/02/23 Alexander Figueroa MD [address] [place] [phone] [email or web address] PCP - General Breast Medical Oncology 10/06/23 Polina Khan, RN [address] [place] [address] [phone] [email or web address] Intake Nurse Navigator Nursing 10/02/23 10/14/23
--- NOTE | 2024-01-30 17:38 | RAD REPORT ---
Procedure: Chest Single View HISTORY: Chest pain COMPARISON: January 19, 2024 FINDINGS: The lungs appear clear of acute infiltrate. No significant pleural effusion noted. The heart is borderline enlarged IMPRESSION: No acute abnormality is displayed.
--- NOTE | 2024-01-30 18:06 | RAD REPORT ---
EXAMINATION: UPPER EXTREMITY VENOUS UNILATE CLINICAL INDICATION: Arm pain TECHNIQUE: Complete bilateral duplex sonography of the right upper extremity veins was performed. The examination included compression for vein patency, color Doppler imaging and flow augmentation in response to distal compression of the internal jugular,, subclavian, axillary, brachial, radial, ulna r, cephalic and basilic veins. .Grayscale, color and spectral analysis performed on all vessels COMPARISON: No prior exam. FINDINGS: The internal jugular, subclavian, axillary,, basilic, cephalic, radial and ulnar veins are generally compressible and demonstrate augmentation. Color Doppler demonstrates good flow. Echogenic material is present within the right brachial vein. The vein is not compressible. This is c onsistent with thrombus IMPRESSION: Acute thrombus right brachial vein
--- NOTE | 2024-01-30 18:09 | RAD REPORT ---
EXAMINATION: US CAROTID DUPLEX CLINICAL INDICATION: Blurred vision TECHNIQUE: Real-time grayscale, color flow and spectral Doppler sonographic images were obtained of t extracranial carotid system using a linear transducer. COMPARISON: No prior exam. FINDINGS: The velocity of the right internal carotid artery 77 cm/s. The right ICA/CCA ratio normal The velocity left internal carotid artery 115 cm/s. The artery is tortuous The left ICA/CCA ratio 2.2. Mild plaque is present within the carotid arteries Vertebral arteries demonstrate anterograde flow. No significant abnormality external carotid arteries Methods for NASCET criteria: mild stenosis, 0% to 49%; moderate, 50% to 69%; severe stenosis, 70% to 99% IMPRESSION: Elevated distal left internal carotid artery velocity likely secondary to tortuosity rather than path ology. No significant vascular abnormality displayed
--- NOTE | 2024-01-30 18:18 | RAD REPORT ---
EXAM: CT brain without contrast HISTORY: Headache COMPARISON: 2020 TECHNIQUE: Multiple contiguous axial images were obtained and a CT of the brain without contrast.. Sagittal and coronal reconstruction performed. Automated exposure control, adjustment of the mA and/or kV according to patient size, and/or iterative reconstruction. Unless otherwise specified, incidental f indings do not require dedicated imaging follow-u FINDINGS: An intracranial bleed is not seen Ventricles are normal caliber No extra-axial fluid collection noted No significant hypodensity within the brain No fluid within the visualized sinuses or mastoids noted. Chronic calcification right globe IMPRESSION: No acute intracranial abnormality noted. If the patient's symptoms persist MRI of the brain would be recommended.
[2024-01-30 18:43] LABS: Absolute Eosinophils 0.3 K/uL (0-0.5); Absolute Lymphocytes (CBC) 1.2 K/uL (0.7-4.9); Absolute Monocytes 0.4 K/uL (0.1-1.3); Absolute Neutrophil 2.7 K/uL (1.8-8.0); Basophils % 0.5 % (0-1.3); Eosinophils % 5.7 % (0-4.4); Hematocrit 27.5 % (36.0-45.0); Hemoglobin 8.7 g/dL (12.0-15.0); Lymphocytes % 25.9 % (15.3-44.8); MCH 25.8 pg (27.0-35.0); MCHC 31.5 g/dL (32.0-36.0); MCV 82.1 fL (80-100); MPV 7.5 fL (7.6-11.3); Monocytes % 9.6 % (3.3-12.3); Neutrophils % 58.3 % (41.7-73.7); Nucleated Red Blood Cells % 0.2 % (0-0); Platelets 303 thou/uL (152-406); RBC Red Blood Cell Count 3.35 M/uL (3.86-4.86); Red Cell Distribution Width 15.6 % (12.1-15.2)
[2024-01-30] MEDS ORDERED: NA CHLORIDE 0.9% 1,000 ML ONE (18:43)
[2024-01-30] MEDS ORDERED: NA CHLORIDE 0.9% 500 ML ONE (18:43)
[2024-01-30 18:47] LABS: PT Prothrombin Time 10.4 SECONDS (9.4-12.5); Protime INR 0.93
[2024-01-30 19:03] LABS: ALT/SGPT 30 U/L (13-56); AST/SGOT 18 U/L (15-37); Albumin 3.2 g/dL (3.4-5.0); Albumin/Globulin Ratio 0.8 (1.1-1.8); Alkaline Phosphatase 79 U/L (45-117); BUN Blood Urea Nitrogen 17 mg/dL (7-18); Bicarbonate 27 mEq/L (21-32); Bilirubin Total 0.3 mg/dL (0.2-1.0); Globulin 3.8 g/dL (2.3-3.5); Glomerular Filtration Rate 39 ml/min (=/>90); Glucose Level 174 mg/dL (74-106); Lipase 28 U/L (13-75); Magnesium 2.1 mg/dL (1.6-2.4); NT PRO-BNP 123 pg/mL (<125); Sodium Level 140 mEq/L (136-145); Troponin High Sensitivity 9.5 pg/mL (<58.9)
[2024-01-30 19:04] LABS: Bilirubin Direct < 0.2 mg/dL (0-0.2); Bilirubin Indirect, Calculated 0.1 mg/dL (0.2-0.8)
[2024-01-30 20:25] LABS: Specific Gravity > 1.030 (1.005-1.030); Urine Bilirubin NEGATIVE (Negative); Urine Blood Negative (Negative); Urine Clarity Clear (Clear); Urine Color Light-Yellow (Yellow); Urine Glucose 4+ (Over) (Negative); Urine Ketones TRACE (Negative); Urine Microscopic Reflex YN NO UMIC; Urine Nitrite NEGATIVE (Negative); Urine Protein NEGATIVE (Negative); Urine Urobilinogen Normal (Normal); Urine pH 5.5 (5.0-7.0)
--- NOTE | 2024-01-30 22:14 | ER ---
Nurse's Notes [facility] Name: Amy Montalvo Age: 68 yrs Sex: Female : 1955 Arrival Date: 01/30/2024 Time: 16:20 Bed 16 Private MD: Diagnosis: Acute embolism and thrombosis of deep veins of right upper extremity;Anemia, unspecified Presentation: 01/29 16:30 Chief complaint: Patient states: she has been having blurred vision, headache and pain ap3 on the right side of her neck for approx one week. when patient contacted her PCP she was instructed to come to the ER for further evaluation. Coronavirus screen: At this time, the client does not indicate any symptoms associated with coronavirus-19. Ebola Screen: No symptoms or risks identified at this time. Initial Sepsis Screen: Does the patient meet any 2 criteria? HR > 90 bpm. Does the patient have a suspected source of infection? No. Patient's initial sepsis screen is negative. Risk Assessment: Do you want to hurt yourself or someone else? Patient reports no desire to harm self or others. Onset of symptoms is unknown. 16:30 Method Of Arrival: Wheelchair ap3 16:30 Acuity: FARIDA 3 ap3 Triage Assessment: 16:31 Headache History: The patient has had previous headaches. General: Appears comfortable, ap3 Behavior is calm, cooperative, appropriate for age. Pain: Complains of pain in head, right side of neck Pain currently is 4 out of 10 on a pain scale. Pain began gradually. Neuro: Level of Consciousness is awake, alert, obeys commands, Oriented to person, place, time, situation, Speech is normal, Reports blurred vision headache. Cardiovascular: Patient's skin is warm and dry. Respiratory: Airway is patent Respiratory effort is even, unlabored, Respiratory pattern is regular, symmetrical. 23:18 Pain: Also complains of no other associated symptoms. me1 Historical: - Allergies: 16:31 Demerol; ap3 16:31 Dilaudid; ap3 16:31 Flagyl; ap3 16:31 Lisinopril; ap3 16:31 PENICILLINS; ap3 - PMHx: 16:31 breast cancer (Sleep Apnea); Diabetes - NIDDM; Diverticulitis; Hyperlipidemia; ap3 Hypertension; Sleep Apnea; - Immunization history:: Client reports having NOT received the Covid vaccine. Flu vaccine is not up to date. - Infectious Disease History:: Denies. - Social history:: Smoking status: Patient denies any tobacco usage or history of. Screenin:33 Abuse screen: Denies threats or abuse. Nutritional screening: No deficits noted. ap3 Tuberculosis screening: No symptoms or risk factors identified. 18:39 [facility] ED Fall Risk Assessment (Adult) History of falling in the last 3 months, tm6 including since admission No falls in past 3 months (0 pts) Confusion or Disorientation No (0 pts) Intoxicated or Sedated No (0 pts) Impaired Gait No (0 pts) Mobility Assist Device Used No (0 pt) Altered Elimination No (0 pt) Score/Fall Risk Level 0 - 2 = Low Risk Oriented to surroundings, Maintained a safe environment, Educated pt \T\ family on fall prevention, incl call for assistance when getting out of bed. Assessment: 18:39 General: Appears in no apparent distress. Behavior is calm, cooperative. Pain: tm6 Complains of pain in right arm and face and right jaw Pain currently is 5 out of 10 on a pain scale. Pain began x1 week. Neuro: Level of Consciousness is awake, alert, obeys commands, Oriented to person, place, time, situation, Reports blurred vision since x1 week. Cardiovascular: Patient's skin is warm and dry. Respiratory: Airway is patent Respiratory effort is even, unlabored, Respiratory pattern is regular, symmetrical. GI: No signs and/or symptoms were reported involving the gastrointestinal system. Abdomen is flat, non-distended. : No signs and/or symptoms were reported regarding the genitourinary system. EENT: No signs and/or symptoms were reported regarding the EENT system. Derm: No signs and/or symptoms reported regarding the dermatologic system. Musculoskeletal: No signs and/or symptoms reported regarding the musculoskeletal system. 18:48 Reassessment: Patient and/or family updated on plan of care and expected duration. Pain tm6 level reassessed. Patient is alert, oriented x 3, equal unlabored respirations, skin warm/dry/pink. 19:10 General: Appears in no apparent distress. Behavior is calm, cooperative, appropriate me1 for age, Reports he was sent by his pcp for low hemoglobin. patient reports headache for the last two weeks, and gets short of breath easier than he used to when going up stairs. Pain: Complains of pain in right arm and face and right jaw Pain does not radiate. Pain currently is 5 out of 10 on a pain scale. Pain began gradually, Is continuous. Neuro: Level of Consciousness is awake, alert, obeys commands, Oriented to person, place, time, situation, Appropriate for age Reports blurred vision since 1 week ago. Cardiovascular: Patient's skin is warm and dry. Respiratory: Airway is patent Respiratory effort is even, unlabored, Respiratory pattern is regular, symmetrical. GI: No signs and/or symptoms were reported involving the gastrointestinal system. : No signs and/or symptoms were reported regarding the genitourinary system. EENT: No signs and/or symptoms were reported regarding the EENT system. Derm: No signs and/or symptoms reported regarding the dermatologic system. Musculoskeletal: No signs and/or symptoms reported regarding the musculoskeletal system. 01/30 00:53 General: Appears in no apparent distress. comfortable, Behavior is calm, cooperative, rg5 appropriate for age. Neuro: Level of Consciousness is awake, alert, obeys commands, Oriented to person, place, time, situation. Cardiovascular: Patient's skin is warm and dry. Respiratory: Airway is patent Trachea midline Respiratory effort is even, unlabored, Respiratory pattern is regular, symmetrical. GI: Abdomen is round non-distended. : No signs and/or symptoms were reported regarding the genitourinary system. EENT: No deficits noted. Derm: Skin is intact, Skin is dry, Skin is normal. Musculoskeletal: Circulation, motion, and sensation intact. Range of motion: intact in all extremities. 01:46 Reassessment: Patient and/or family updated on plan of care and expected duration. Pain rg5 level reassessed. Patient is alert, oriented x 3, equal unlabored respirations, skin warm/dry/pink. Vital Signs: 01/29 16:30 BP 120 / 69; Pulse 92; Resp 17; Temp 97.1; Pulse Ox 100% ; Weight 83.01 kg; Height 5 ap3 ft. 7 in. ; 18:48 BP 134 / 88; Pulse 106; Pulse Ox 96% on R/A; MAP 102 mmHg; tm6 19:00 BP 140 / 85; Pulse 99; Resp 21; Pulse Ox 94% ; me1 20:00 BP 135 / 78; Pulse 103; Resp 21; Pulse Ox 96% ; me1 21:00 BP 128 / 83; Pulse 104; Resp 22; Pulse Ox 95% ; me1 22:00 BP 136 / 79; Pulse 107; Resp 16; Pulse Ox 92% ; me1 01/30 00:52 BP 134 / 100; Pulse 99; Resp 17; Temp 98; Pulse Ox 97% on R/A; rg5 01:45 BP 112 / 65; Pulse 95; Resp 17; Temp 96(O); Pain 0/10; rg5 01/29 16:30 Body Mass Index 28.66 (83.01 kg, 170.18 cm) ap3 01:45 Pain Scale: Adult rg5 Werner Coma Score: 01/29 17:07 Eye Response: spontaneous(4). Motor Response: obeys commands(6). Verbal Response: starr oriented(5). Total: 15. ED Course: 16:23 Patient arrived in ED. im 16:31 Triage completed. ap3 16:33 Arm band placed on right wrist. ap3 16:36 Akira Canales MD is Attending Physician. starr 16:43 Padmaja Torres, AGUEDA is Primary Nurse. tm6 17:17 XRAY Chest (1 view) In Process Unspecified. EDMS 17:41 US Carotid Artery Bilateral In Process Unspecified. EDMS 17:41 UPPER EXTREMITY VENOUS UNILATE In Process Unspecified. EDMS 18:04 CT Head Brain wo Cont In Process Unspecified. EDMS 18:10 EKG done, by ED staff, reviewed by Akira Canales MD. tm6 18:12 Akira Patel PA is PHCP. cp 18:39 Patient has correct armband on for positive identification. Placed in gown. Bed in low tm6 position. Call light in reach. Side rails up X2. Provided Education on: use of call bernabe. Client placed on continuous cardiac and pulse oximetry monitoring. NIBP monitoring applied. pvc monitor on. Pulse ox on. NIBP on. Door closed. Noise minimized. Lights dimmed. Warm blanket given. Pillow given. 18:39 Accessed peripheral vein via ultrasound, utilizing dynamic ultrasound technique using tm6 20G Nexia IV catheter Clean \T\ dry. Dressing intact. Good blood return. 18:41 Lipase Sent. tm6 18:41 Basic Metabolic Panel Sent. tm6 18:41 CBC with Diff Sent. tm6 18:41 LFT's Sent. tm6 18:41 Magnesium Sent. tm6 18:41 NT PRO-BNP Sent. tm6 18:41 PT-INR Sent. tm6 18:41 Troponin HS Sent. tm6 19:10 No provider procedures requiring assistance completed. me1 20:15 Urinalysis w/ reflexes Sent. tm6 20:15 Urine collected: clean catch specimen, clear. tm6 23:15 Elroy Taylor MD is Hospitalizing Provider. 23:18 Patient admitted, IV remains in place. me1 23:40 CT Chest For PE Angio In Process Unspecified. EDMS 01/30 00:40 Primary Nurse role handed off by Padmaja Torres, AGUEDA rg5 00:40 Tod Alaniz, AGUEDA is Primary Nurse. rg5 Administered Medications: 01/29 18:47 Drug: NS 0.9% IV 500 ml 500 ml IV at 1 bolus once; to be given as a bolus over 30 tm6 minutes Volume: 500 ml; Route: IV; Rate: 1 bolus; Site: left forearm; 20:14 Follow up: Response: No adverse reaction; IV Status: Completed infusion; IV Intake: tm6 500ml 18:47 Drug: NS 0.9% IV 1000 ml IV at 125 ml/hr continuous Route: IV; Rate: 125 ml/hr; Site: tm6 left forearm; 23:19 Follow up: IV Status: Infusion continued upon admission mt1 Medication: 18:39 VIS not applicable for this client. tm6 Intake: 20:14 IV: 500ml; Total: 500ml. tm6 Outcome: 22:13 Decision to Hospitalize by Provider. cp 23:18 Admitted to ER Hold. Please see [facility] for further documentation. mt1 23:18 Condition: stable 23:18 Instructed on the need for admit, 01/30 05:44 Patient left the ED. rg5 Signatures: Dispatcher [employer] Akira Handy MD MD cha Page, Corey, PA PA cp Garcia, Cindy, AGUEDA ROMEO Rissa Ray RN RN ap3 Whit Herbert Michelle RN RN mt1 Padmaja Torres RN AGUEDA tm6 Tod Alaniz, RN RN rg5
--- NOTE | 2024-01-30 22:14 | EDPHYS ---
Physician Documentation [facility] Name: Amy Montalvo Age: 68 yrs Sex: Female : 1955 Arrival Date: 01/30/2024 Time: 16:20 Bed 16 Private MD: ED Physician Akira Canales HPI: 01/29 17:04 This 68 yrs old Black Female presents to ER via Wheelchair with complaints of Abnormal starr Lab Results, Blurred Vision, General Weakness, Headache, Neck Pain, <24hrs Old. 17:04 Onset: The symptoms/episode began/occurred 1 week(s) ago. cp Historical: - Allergies: 16:31 Demerol; ap3 16:31 Dilaudid; ap3 16:31 Flagyl; ap3 16:31 Lisinopril; ap3 16:31 PENICILLINS; ap3 - PMHx: 16:31 breast cancer (Sleep Apnea); Diabetes - NIDDM; Diverticulitis; Hyperlipidemia; ap3 Hypertension; Sleep Apnea; - Immunization history:: Client reports having NOT received the Covid vaccine. Flu vaccine is not up to date. - Infectious Disease History:: Denies. - Social history:: Smoking status: Patient denies any tobacco usage or history of. ROS: 17:04 Constitutional: Negative for fever, chills, and weight loss, Eyes: Negative for injury, starr pain, redness, and discharge, ENT: Negative for injury, pain, and discharge, Neck: Negative for injury, pain, and swelling, Cardiovascular: Negative for chest pain, palpitations, and edema, Respiratory: Negative for shortness of breath, cough, wheezing, and pleuritic chest pain, Abdomen/GI: Negative for abdominal pain, nausea, vomiting, diarrhea, and constipation, Back: Negative for injury and pain, : Negative for injury, bleeding, discharge, and swelling, Skin: Negative for injury, rash, and discoloration, Psych: Negative for depression, anxiety, suicide ideation, homicidal ideation, and hallucinations, Allergy/Immunology: Negative for hives, rash, and allergies, Endocrine: Negative for neck swelling, polydipsia, polyuria, polyphagia, and marked weight changes, Hematologic/Lymphatic: Negative for swollen nodes, abnormal bleeding, and unusual bruising, 17:04 MS/extremity: Positive for pain, tenderness, of the right jaw and right arm, 17:04 Skin: Positive for pallor, Exam: 17:04 Constitutional: This is a well developed, well nourished patient who is awake, alert, starr and in no acute distress. Head/Face: Normocephalic, atraumatic. Eyes: Pupils equal round and reactive to light, extra-ocular motions intact. Lids and lashes normal. Conjunctiva and sclera are non-icteric and not injected. Cornea within normal limits. Periorbital areas with no swelling, redness, or edema. ENT: Nares patent. No nasal discharge, no septal abnormalities noted. Tympanic membranes are normal and external auditory canals are clear. Oropharynx with no redness, swelling, or masses, exudates, or evidence of obstruction, uvula midline. Mucous membranes moist. Neck: Trachea midline, no thyromegaly or masses palpated, and no cervical lymphadenopathy. Supple, full range of motion without nuchal rigidity, or vertebral point tenderness. No Meningismus. Chest/axilla: Normal chest wall appearance and motion. Nontender with no deformity. No lesions are appreciated. Cardiovascular: Regular rate and rhythm with a normal S1 and S2. No gallops, murmurs, or rubs. Normal PMI, no JVD. No pulse deficits. Respiratory: Lungs have equal breath sounds bilaterally, clear to auscultation and percussion. No rales, rhonchi or wheezes noted. No increased work of breathing, no retractions or nasal flaring. Abdomen/GI: Soft, non-tender, with normal bowel sounds. No distension or tympany. No guarding or rebound. No evidence of tenderness throughout. Back: No spinal tenderness. No costovertebral tenderness. Full range of motion. Skin: Warm, dry with normal turgor. Normal color with no rashes, no lesions, and no evidence of cellulitis. MS/ Extremity: Pulses equal, no cyanosis. Neurovascular intact. Full, normal range of motion. Neuro: Awake and alert, GCS 15, oriented to person, place, time, and situation. Cranial nerves II-XII grossly intact. Motor strength 5/5 in all extremities. Sensory grossly intact. Cerebellar exam normal. Normal gait. Psych: Awake, alert, with orientation to person, place and time. Behavior, mood, and affect are within normal limits. 17:04 Abdomen/GI: Bowel sounds: normal, Palpation: abdomen is soft and non-tender, Rectal exam: rectal tone normal, Stool: guaiac negative, hemorrhoid(s), are not appreciated, mass, is not appreciated, swelling, is not appreciated, tenderness, is not appreciated, fecal impaction, is not appreciated, Liver: no appreciated palpable abnormalities, Hernia: not appreciated, 18:14 ECG was reviewed by the Attending Physician. [facility] Vital Signs: 16:30 BP 120 / 69; Pulse 92; Resp 17; Temp 97.1; Pulse Ox 100% ; Weight 83.01 kg; Height 5 ap3 ft. 7 in. ; 18:48 BP 134 / 88; Pulse 106; Pulse Ox 96% on R/A; MAP 102 mmHg; tm6 19:00 BP 140 / 85; Pulse 99; Resp 21; Pulse Ox 94% ; me1 20:00 BP 135 / 78; Pulse 103; Resp 21; Pulse Ox 96% ; me1 21:00 BP 128 / 83; Pulse 104; Resp 22; Pulse Ox 95% ; me1 22:00 BP 136 / 79; Pulse 107; Resp 16; Pulse Ox 92% ; me1 01/30 00:52 BP 134 / 100; Pulse 99; Resp 17; Temp 98; Pulse Ox 97% on R/A; rg5 01:45 BP 112 / 65; Pulse 95; Resp 17; Temp 96(O); Pain 0/10; rg5 01/29 16:30 Body Mass Index 28.66 (83.01 kg, 170.18 cm) ap3 01:45 Pain Scale: Adult rg5 Werner Coma Score: 01/29 17:07 Eye Response: spontaneous(4). Motor Response: obeys commands(6). Verbal Response: starr oriented(5). Total: 15. MDM: 16:36 Medical Screening Exam initiated starr 17:07 Differential diagnosis: cluster headache, hyponatremia, tension headache. Data [facility] reviewed: vital signs, nurses notes, lab test result(s), EKG, radiologic studies, CT scan, doppler, plain films. Consideration of Admission/Observation Patient was admitted/placed on observation. Escalation of care including admission/observation considered. I considered the following discharge prescriptions or medication management in the emergency department Medications were administered in the Emergency Department. See MAR. Test considered but Not performed: Ultrasound no abd usg. Care significantly affected by the following chronic conditions: Diabetes, Hypertension, Cancer, diverticulosis, itis, hyperlipids, sleep apnea. 22:15 Management of patient was discussed with the following: Hospitalist: DR Taylor who will cp admit after discussion. 01/29 16:55 Order name: Basic Metabolic Panel; Complete Time: 20:34 starr 01/29 21:29 Interpretation: Normal except: CL 108; GLUC 174; CRE 1.44; GFR 39. cp 01/29 16:55 Order name: CBC with Diff; Complete Time: 20:34 starr 01/29 20:35 Interpretation: Normal except: RBC 3.35; HGB 8.7; HCT 27.5; MCH 25.8; MCHC 31.5; RDW cp 15.6; MPV 7.5. 01/29 16:55 Order name: LFT's; Complete Time: 20:34 starr 01/29 16:55 Order name: Magnesium; Complete Time: 20:34 [facility] 01/29 16:55 Order name: NT PRO-BNP; Complete Time: 20:34 starr 01/29 16:55 Order name: PT-INR; Complete Time: 20:34 [facility] 01/29 16:55 Order name: Troponin HS; Complete Time: 20:34 [facility] 01/29 16:55 Order name: Lipase; Complete Time: 20:34 [facility] 01/29 16:55 Order name: Urinalysis w/ reflexes; Complete Time: 20:34 starr 01/29 16:55 Order name: Type And Screen; Complete Time: 20:34 [facility] 01/30 02:31 Order name: Urinalysis w/ reflexes EDMS 01/30 02:31 Order name: CBC with Automated Diff EDMS 01/30 02:31 Order name: CBC with Automated Diff EDMS 01/30 02:31 Order name: Comprehensive Metabolic Panel EDMS 01/30 02:31 Order name: Comprehensive Metabolic Panel EDMS 01/29 16:55 Order name: XRAY Chest (1 view); Complete Time: 18:15 [facility] 01/29 16:55 Order name: US Carotid Artery Bilateral; Complete Time: 18:15 starr 01/29 17:04 Order name: UPPER EXTREMITY VENOUS UNILATE; Complete Time: 18:15 EDMS 01/29 17:04 Order name: CT Head Brain wo Cont; Complete Time: 20:34 [facility] 01/29 22:14 Order name: CT Chest For PE Angio 01/29 16:55 Order name: Cardiac monitoring; Complete Time: 18:41 [facility] 01/29 16:55 Order name: EKG - Nurse/Tech; Complete Time: 18:41 [facility] 01/29 16:55 Order name: IV Saline Lock; Complete Time: 18:41 [facility] 01/29 16:55 Order name: Labs collected and sent; Complete Time: 18:41 [facility] 01/29 16:55 Order name: O2 Per Protocol; Complete Time: 18:41 [facility] 01/29 16:55 Order name: O2 Sat Monitoring; Complete Time: 18:41 starr EC:14 Rate is 96 beats/min. Rhythm is regular. QRS [place] is Normal. HI interval is normal. QRS starr interval is normal. QT interval is normal. No Q waves. T waves are Normal. No ST changes noted. Clinical impression: Normal ECG and No evidence of ischemia. Interpreted by me. Reviewed by me. Administered Medications: 18:47 Drug: NS 0.9% IV 500 ml 500 ml IV at 1 bolus once; to be given as a bolus over 30 tm6 minutes Volume: 500 ml; Route: IV; Rate: 1 bolus; Site: left forearm; 20:14 Follow up: Response: No adverse reaction; IV Status: Completed infusion; IV Intake: tm6 500ml 18:47 Drug: NS 0.9% IV 1000 ml IV at 125 ml/hr continuous Route: IV; Rate: 125 ml/hr; Site: tm6 left forearm; 23:19 Follow up: IV Status: Infusion continued upon admission me1 Disposition Summary: 01/30/24 22:13 Hospitalization Ordered Notes: Hospitalization Status: Observation cp Condition: Stable cp Problem: new cp Symptoms: have improved cp Bed/Room Type: Standard cp Provider: Elroy Taylor(01/30/24 23:16) cg Location: Telemetry/MedSurg (Inpatient)(01/31/24 04:30) rv1 Room Assignment: 201(01/31/24 04:30) rv1 Diagnosis - Acute embolism and thrombosis of deep veins of right upper extremity cp - Anemia, unspecified cp Forms: - Medication Reconciliation Form cp - SBAR form cp - Leadership Thank You Letter cp Signatures: Dispatcher [employer] EDAkira Khalil MD MD cha Page, Corey, PA PA cp Garcia, Cindy, RN Rissa Sutton, RN RN ap3 Elmira Reaves rv1 Padmaja Torres RN RN tm6 Lynn Hodge RN me1 Corrections: (The following items were deleted from the chart) 16:55 16:55 BASIC METABOLIC PANEL+C.LAB.BRZ ordered. EDMS EDMS 16:55 16:55 CBC+H.LAB.BRZ ordered. EDMS EDMS 16:55 16:55 HEPATIC FUNCTION+C.LAB.BRZ ordered. EDMS EDMS 16:55 16:55 MAGNESIUM+C.LAB.BRZ ordered. EDMS EDMS 16:55 16:55 PROBNP+C.LAB.BRZ ordered. EDMS EDMS 16:55 16:55 PROTIME (+INR)+COAG.LAB.BRZ ordered. EDMS EDMS 16:55 16:55 Troponin High Sensitivity+C.LAB.BRZ ordered. EDMS EDMS 16:56 16:55 LIPASE+C.LAB.BRZ ordered. EDMS EDMS 16:56 16:55 Urinalysis+U.LAB.BRZ ordered. EDMS EDMS 16:56 16:55 TYPE AND SCREEN+BB.LAB.BRZ ordered. EDMS EDMS 16:56 16:56 Chest Single View+RAD.RAD.BRZ ordered. EDMS EDMS 16:56 16:56 Carotid Artery Bilateral+US.RAD.BRZ ordered. EDMS EDMS 16:56 16:56 Extremity Venous Uni Ltd+US.RAD.BRZ ordered. EDMS EDMS 23:16 22:13 Elroy Taylor [facility] 23:16 22:13 Telemetry/MedSurg (observation) cg 23:16 22:13 cp 01/30 04:30 01/29 23:16 [facility] ER HOLD rv1 01/30 04:30 01/29 23:16 ERHOLD- rv1
[2024-01-31] MEDS ORDERED: ACETAMINOPHEN 325 MG TABLET PO PRN (02:25)
[2024-01-31] MEDS ORDERED: ONDANSETRON 4 MG/2 ML VIAL IV PRN (02:25)
[2024-01-31] MEDS ORDERED: ALBUTEROL 2.5 MG/3 ML NEB SOL NEB PRN (02:25)
--- NOTE | 2024-01-31 02:35 | P.HP ---
Certification for Inpatient Patient admitted to: Inpatient With expected LOS: >2 Midnights Practitioner: I am a practitioner with admitting privileges, knowledge of patient current condition, hospital course, and medical plan of care. Services: Services provided to patient in accordance with Admission requirements found in Title 42 Section 412.3 of the Code of Federal Regulations Patient History Date of Service: 01/31/24 Reason for admission: AMS History of Present Illness: 68 yrs old Female with past medical history of breast cancer, diabetes, hypertension, hyperlipidemia, sleep apnea, history of diverticulitis came to ER with pain and swelling on right upper extremity which has been going on for a week and has been progressively worsening and was brought to ER. Patient denies any trauma. Patient has a history of breast cancer status post right mastectomy with lymph node removal. Denies any chest pain or shortness of breath. No nausea vomiting or diarrhea. No fever or chills. Patient was assessed in the ER and is admitted for further management of upper extremity DVT as ultrasound was positive for right brachial thrombus Allergies hydromorphone HCl [From Dilaudid] Allergy (Mild, Verified 01/21/23 09:09) Shortness of breath Penicillins Allergy (Mild, Verified 01/21/23 09:09) delusion lisinopril Allergy (Unknown, Verified 01/21/23 09:09) Hives losartan Allergy (Verified 01/21/23 09:09) Hives metronidazole [From Flagyl] Allergy (Verified 01/21/23 09:09) rash inside mouth Home medications list reviewed: Yes Home Medications: Magnesium Oxide [Magnesium] 800 mg PO BID 06/30/18 Metformin ER [Glucophage ER*] 1,000 mg PO BID 06/30/18 Metoprolol Tartrate 50 mg PO BEDTIME 06/30/18 Rosuvastatin [Crestor*] 20 mg PO BEDTIME 06/30/18 Pantoprazole [Protonix Tab*] 40 mg PO DAILY #30 tab 08/29/19 Dapagliflozin Propanediol [Farxiga] 10 mg PO DAILY 07/05/22 Linaclotide [Linzess] 290 mcg PO DAILY 07/05/22 NIFEdipine [Nifedipine ER] 60 mg PO DAILY 07/09/22 Aspirin Chewable [Aspirin Chewable*] 1 tab PO DAILY 08/29/22 Cyclopentolate 2% [Cyclogyl 2%*] 1 gtt RIGHT EYE BID 01/17/23 Dulaglutide [Trulicity] 0.75 mg SQ EVERY 7TH DAY 01/17/23 Ergocalciferol (Vitamin D2) [Vitamin D2] 125 mcg PO DAILY 01/17/23 Glipizide [Glipizide ER] 10 mg PO DAILY 01/17/23 Insulin Detemir [Levemir] 100 units SQ DAILY 01/17/23 Latanoprost 2.5 ml LEFT EYE DAILY 01/17/23 Polyethylene Glycol 3350 [Miralax] 17 gm PO DAILY 30 Days #30 packet 04/06/23 Hydrocodone 5/APAP 325 [[place] 5/325*] 1 tab PO Q6H PRN #12 tab 01/14/24 levoFLOXacin [Levaquin] 750 mg PO DAILY #5 tab 01/14/24 - Past Medical/Surgical History Diabetic: Yes Past Medical History: Reviewed- Non-Contributory -: sleep apnea -: HTN -: Diverticulitis -: asthma -: COPD -: NIDDM -: hyperlipidemia Past Surgical History: Reviewed- Non-Contributory -: bowel resection -: - Family History Father -: Hypertension, GI disease, Diabetes, Stroke Mother -: Other (see notes) Notes: dementia Sister -: Lung disease, Cancer Brother -: Lung disease, Cancer - Social History Smoking Status: Former smoker Alcohol use: No CD- Drugs: No Caffeine use: No Review of Systems 10-point ROS is otherwise unremarkable Physical Examination - Vital Signs Temperature: 97.2 F Blood Pressure: 138/76 Pulse: 76 Respirations: 18 Pulse Ox (%): 94 - Physical Exam General: Alert, In no apparent distress, Oriented x3 HEENT: Atraumatic, Normocephalic Neck: Supple Respiratory: Clear to auscultation bilaterally, Normal air movement Cardiovascular: Normal pulses, Regular rate/rhythm, Normal S1 S2 Capillary refill: <2 Seconds Gastrointestinal: Normal bowel sounds, Soft and benign, W/out hepatosplenomegaly Musculoskeletal: No clubbing, No swelling Integumentary: No rashes Neurological: Normal speech, Normal strength at 5/5 x4 extr, Cranial nerves 3-12 intact, Normal reflexes 2+ Lymphatics: No axilla or inguinal lymphadenopathy - Studies Laboratory Data (last 24 hrs) 01/30/24 01/30/24 01/30/24 18:34 18:34 18:34 WBC 4.60 Hgb 8.7 L Hct 27.5 L Plt Count 303 PT 10.4 INR 0.93 Sodium 140 Potassium 4.0 BUN 17 Creatinine 1.44 H Glucose 174 H Magnesium 2.1 Total Bilirubin 0.3 AST 18 ALT 30 Alkaline Phosphatase 79 Lipase 28 Assessment and Plan - Plan Right brachial thrombus Started on Lovenox Pain control Monitor closely on telemetry Will get a CT PE protocol Hypertension Antihypertensives titrated Continue home medications and titrate as needed Hyperlipidemia Continue statin History of breast cancer Supportive management CKD stage II Monitor closely on telemetry Renal parameters monitored Anemia of chronic disease Monitor H&H closely No overt bleeding at this time GI/DVT prophylaxis Advanced directive full code Discharge Plan: Home Plan to discharge in: 48 Hours - Advance Directives Does patient have a Living Will: No Does patient have a Durable POA for Healthcare: No - Code Status/Comfort Care Code Status: Full Code Time Spent Managing Pts Care (In Minutes): 48
[2024-01-31 03:10] VITALS: BMI 28.6
--- NOTE | 2024-01-31 06:25 | RAD REPORT ---
EXAM: CT Angiography Chest With Intravenous Contrast CLINICAL HISTORY: The patient is 68 years old and is Female; right arm dvt TECHNIQUE: Axial computed tomographic angiography images of the chest with intravenous contrast. Sagittal an d coronal reformatted images were created and reviewed. This CT exam was performed using one or more of the following dose reduction techniques: automated exposure control, adjustment of the mA a nd/or kV according to patient size, and/or use of iterative reconstruction technique. MIP reconstructed images were created and reviewed. COMPARISON: No relevant prior studies available. FINDINGS: PULMONARY ARTERIES: There are no obvious filling defects identified within the pulmonary arteries to suggest pulmonary embolism. AORTA: No acute findings. No thoracic aortic aneurysm. LUNGS: Unremarkable. No mass. No consolidation. PLEURAL SPACE: Unremarkable. No significant effusion. No pneumothorax. HEART: A trace pericardial effusion is present. Left ventricular hypertrophy is noted. No car diomegaly. No evidence of RV dysfunction. BONES/JOINTS: No acute fracture. No dislocation. SOFT TISSUES: A 4.4 x 4.6 cm slightly heterogeneous cystic lesion within the soft tissues of the right breast adjacent to surgical clips is present. LYMPH NODES: Unremarkable. No enlarged lymph nodes. IMPRESSION: 1. No evidence of pulmonary embolism. 2. Slightly heterogeneous cystic collection within the soft tissues of the right breast adjacent to surgical clips. Correlation for recent procedure/history as this may be a postoperative seroma/resolving hematoma. Additional evaluation with nonemergent breast ultrasound evaluation by [facility] A certified breast radiologist is recommended. Electronically signed by: Arpita Peres MD 01/31/2024 12:43 AM T Due to temporary technical issues with the PACS/[employer] reporting system, reports are being dhara d by the in-house radiologist without review as a courtesy to ensure prompt reporting the interpreting radiologist is fully responsible for the content of the report. Transcribed Date/Time: 01/31/2024 6:25 AM
--- NOTE | 2024-01-31 06:51 | P.PN ---
Date of Service: 01/31/24 subjective admitted with thrombus JOSE, started on lovenox recent GIB, trend HH, transfuse <8 Review of Systems 10-point ROS is otherwise unremarkable unless listed HPI Physical Examination - Vital Signs reivewed - Physical Exam General: Alert, In no apparent distress, Oriented x3, HEENT: Atraumatic, Normocephalic Neck: Supple Respiratory: Clear to auscultation bilaterally, Normal air movement Cardiovascular: Normal pulses, Regular rate/rhythm, Normal S1 S2 Capillary refill: <2 Seconds Gastrointestinal: Normal bowel sounds, Soft and benign, W/out hepatosplenomegaly Musculoskeletal: No clubbing, No swelling Integumentary: No rashes Neurological: Normal speech, Normal strength at 5/5 x4 extr, Cranial nerves 3-12 intact, Normal reflexes 2+ Lymphatics: No axilla or inguinal lymphadenopathy - Assessment and Plan - Plan trace pericardial effusion Right brachial thrombus Started on Lovenox Pain control Monitor closely on telemetry Will get a CT PE protocol A trace pericardial effusion is present. Left ventricular hypertrophy is noted. No cardiomegaly. No evidence of RV dysfunction CT head No acute intracranial abnormality noted. Yary doppler Acute thrombus right brachial vein History of a diverticular hemorrhage Monitor for GI bleeding, monitor H&H type and cross, transfuse if HH drops, <8 Fatigue due to radiation therapy breast cancer currently undergoing radiation therapy History of breast cancer Supportive management Type 2 diabetes mellitus uncontrolled Glucosuria, A1c Accu-Cheks, sliding scale insulin Hypertension Antihypertensives titrated Continue home medications and titrate as needed Hyperlipidemia Continue statin CKD stage II Monitor closely on telemetry Renal parameters monitored Anemia of chronic disease Monitor H&H closely No overt bleeding at this time GI/DVT prophylaxis Advanced directive full code Discharge Plan: Home Plan to discharge in: 48 Hours - Advance Directives Does patient have a Living Will: No Does patient have a Durable POA for Healthcare: No - Code Status/Comfort Care Code Status: Full Code Time Spent Managing Pts Care (In Minutes): 35 <Lu Jeronimo - Last Filed: 01/31/24 20:40> This patient was seen and examined. Events of the last 24 hours have been noted. Spoke with with FLORENCIA regarding patient's clinical picture after evaluating and examining the patient independently. I performed a substantial part of the MDM during this patient's care today. I personally made or approved the documented management plan and acknowledge its risk of complications. I agree with the findings and documentation provided in the FLORENCIA's notes. Patient with right brachial thrombus and will continue with Eliquis at this time. Patient with metabolic syndrome but has lost a lot of weight and she will continue monitoring blood pressure and blood sugars closely upon discharge. Arrange for Eliquis at discharge. <Les Nascimento - Last Filed: 02/01/24 17:03>
[2024-01-31] MEDS ORDERED: NA CHLORIDE 0.9% 250 ML IV SCH (07:00)
[2024-01-31 07:36] LABS: Absolute Eosinophils 0.2 K/uL (0-0.5); Absolute Monocytes 0.4 K/uL (0.1-1.3); Absolute Neutrophil 3.5 K/uL (1.8-8.0); Basophils % 0.7 % (0-1.3); Eosinophils % 4.6 % (0-4.4); Hematocrit 27.5 % (36.0-45.0); Lymphocytes % 18.7 % (15.3-44.8); MCHC 32.5 g/dL (32.0-36.0); MPV 7.4 fL (7.6-11.3); Monocytes % 8.2 % (3.3-12.3); Neutrophils % 67.8 % (41.7-73.7); Nucleated Red Blood Cells % 0.3 % (0-0); Platelets 272 thou/uL (152-406); RBC Red Blood Cell Count 3.45 M/uL (3.86-4.86); Red Cell Distribution Width 15.7 % (12.1-15.2)
[2024-01-31 07:43] LABS: PT Prothrombin Time 10.5 SECONDS (9.4-12.5); Protime INR 0.94
[2024-01-31 07:51] LABS: Albumin 3.2 g/dL (3.4-5.0); Albumin/Globulin Ratio 0.9 (1.1-1.8); Anion Gap 8.6 mEq/L (5.0-15.0); Bilirubin Total 0.4 mg/dL (0.2-1.0); Globulin 3.6 g/dL (2.3-3.5); Potassium 3.6 mEq/L (3.5-5.1); Protein, Total 6.8 g/dL (6.4-8.2)
[2024-01-31] MEDS: PANTOPRAZOLE 40MG TABLET PO SCH (08:52)
[2024-01-31] MEDS: GLIPIZIDE S.A. 5 MG TAB PO SCH (08:52)
[2024-01-31] MEDS: **PT MED**Dapagliflozin Propanediol [Farxiga] 10 MG Tablet PO SCH (09:00)
[2024-01-31] MEDS: ENOXAPARIN 80 MG/0.8 ML SQ SCH (09:23)
[2024-01-31] MEDS: HYDROCODONE/APAP 5/325 MG TAB PO PRN (09:32)
[2024-01-31] MEDS: NIFEDIPINE XL 60 MG TABLET PO SCH (09:49)
[2024-01-31] MEDS: POLYETHYL GLY 3350 17 GM/DOSE PO SCH (09:51)
[2024-01-31] MEDS: ASPIRIN 81 MG CHEWABLE TABLET PO SCH (09:51)
[2024-01-31 16:03] LABS: Hematocrit 27.6 % (36.0-45.0); Hemoglobin 8.7 g/dL (12.0-15.0)
[2024-01-31] MEDS: ROSUVASTATIN 10 MG TAB PO SCH (20:39)
[2024-01-31] MEDS: METOPROLOL TAR 50 MG TAB PO SCH (20:40)
[2024-02-01 07:01] LABS: Absolute Eosinophils 0.3 K/uL (0-0.5); Absolute Lymphocytes (CBC) 0.9 K/uL (0.7-4.9); Absolute Monocytes 0.6 K/uL (0.1-1.3); Absolute Neutrophil 4.3 K/uL (1.8-8.0); Basophils % 0.4 % (0-1.3); Eosinophils % 4.3 % (0-4.4); Hematocrit 27.2 % (36.0-45.0); Hemoglobin 8.8 g/dL (12.0-15.0); Lymphocytes % 15.2 % (15.3-44.8); MCHC 32.4 g/dL (32.0-36.0); MCV 80.3 fL (80-100); MPV 7.2 fL (7.6-11.3); Monocytes % 9.5 % (3.3-12.3); Neutrophils % 70.6 % (41.7-73.7); Nucleated Red Blood Cells % 0.2 % (0-0); Platelets 254 thou/uL (152-406); RBC Red Blood Cell Count 3.39 M/uL (3.86-4.86); Red Cell Distribution Width 15.5 % (12.1-15.2)
[2024-02-01 07:17] LABS: ALT/SGPT 23 U/L (13-56); Albumin 2.9 g/dL (3.4-5.0); Albumin/Globulin Ratio 0.8 (1.1-1.8); Alkaline Phosphatase 68 U/L (45-117); Anion Gap 8.8 mEq/L (5.0-15.0); BUN Blood Urea Nitrogen 13 mg/dL (7-18); Bicarbonate 26 mEq/L (21-32); Bilirubin Total 0.3 mg/dL (0.2-1.0); Globulin 3.8 g/dL (2.3-3.5); Glomerular Filtration Rate 67 ml/min (=/>90); Glucose Level 147 mg/dL (74-106); Potassium 3.8 mEq/L (3.5-5.1); Protein, Total 6.7 g/dL (6.4-8.2); Sodium Level 139 mEq/L (136-145)
--- NOTE | 2024-02-01 07:18 | P.DS ---
Admission Date: 01/31/24 Discharge Date: 02/01/24 Disposition: ROUTINE DISCHARGE Reason for Admission: AMS Brief History of Present Illness: 68 yrs old Female with past medical history of breast cancer, diabetes, hypertension, hyperlipidemia, sleep apnea, history of diverticulitis came to ER with pain and swelling on right upper extremity which has been going on for a week and has been progressively worsening and was brought to ER. Patient denies any trauma. Patient has a history of breast cancer status post right mastectomy with lymph node removal. Denies any chest pain or shortness of breath. No nausea vomiting or diarrhea. No fever or chills. Patient was assessed in the ER and is admitted for further management of upper extremity DVT as ultrasound was positive for right brachial thrombus - Physical Exam General: Alert, In no apparent distress, Oriented x3 HEENT: Atraumatic, Normocephalic Neck: Supple Respiratory: Clear to auscultation bilaterally, Normal air movement Cardiovascular: Normal pulses, Regular rate/rhythm, Normal S1 S2 Capillary refill: <2 Seconds Gastrointestinal: Normal bowel sounds, Soft and benign, W/out hepatosplenomegaly Musculoskeletal: No clubbing, No swelling Integumentary: No rashes Neurological: Normal speech, Normal strength at 5/5 x4 extr, Cranial nerves 3-12 intact, Normal reflexes 2+ Hospital Course: 68 yrs old Female with past medical history of breast cancer, diabetes, hypertension, hyperlipidemia, sleep apnea, history of diverticulitis came to ER with pain and swelling on right upper extremity which has been going on for a week and has been progressively worsening and was brought to ER. Patient denies any trauma. Patient has a history of breast cancer status post right mastectomy with lymph node removal he was noted to have right upper extremity thrombus, trace pericardial effusion, history of GI bleeding. She was started on Lovenox,. H&H has remained stable, plan to discharge home on anticoagulation. Patient needs to monitor for GI bleeding, follow-up with oncology after dischargeContinue home medicines as previously prescribed Radiology CT PE protocol A trace pericardial effusion is present. Left ventricular hypertrophy is noted. No cardiomegaly. No evidence of RV dysfunction CT head No acute intracranial abnormality noted. Yary doppler Acute thrombus right brachial vein Laboratory Hemoglobin 8.7, 9.0, 8.7, Assessment Right upper extremity thrombus, started on anticoagulation, discharged home on p.o. anticoagulation History of GI bleeding, H&H has remained stable, will need to monitor for GI bleeding after discharge Trace pericardial effusion, asymptomatic, will need to follow-up with oncology after discharge Fatigue due to radiation therapy follow-up with oncology after discharge, ensure adequate intake breast cancer currently undergoing radiation therapy History of breast cancer Diabetes type 2 resume home medic for hyperglycemia medication Hypertension resume home antihypertensive Hyperlipidemia resume home antilipid CKD stage II follow-up with PCP after Anemia of chronic disease, stable GOAL: Clear understanding of disease process INSTRUCTIONS: Physician Discharge Instructions: -Follow-up with oncology discharge -Follow-up with PCP in 1 to 2 weeks -Please call Dr. Nascimento at [phone] if any questions regarding hospital stay -Please call nursing station at [phone] if any nursing or medication questions -Return to the emergency room if symptoms worsen Diet: ADA, low sodium Activity: Fall precautions Vital Signs/Physical Exam: Temp Pulse Resp BP Pulse Ox 97.6 F 87 14 132/77 96 02/01/24 04:00 02/01/24 04:00 02/01/24 04:00 02/01/24 04:00 02/01/24 04:00 Laboratory Data at Discharge: WBC 6.10 thou/uL (4.3-10.9) 02/01/24 06:32 Hgb 8.8 g/dL (12.0-15.0) L 02/01/24 06:32 Hct 27.2 % (36.0-45.0) L 02/01/24 06:32 Plt Count 254 thou/uL (152-406) 02/01/24 06:32 PT 10.5 SECONDS (9.4-12.5) 01/31/24 07:20 INR 0.94 01/31/24 07:20 Sodium 140 mEq/L (136-145) 01/31/24 07:20 Potassium 3.6 mEq/L (3.5-5.1) 01/31/24 07:20 BUN 10 mg/dL (7-18) 01/31/24 07:20 Creatinine 0.75 mg/dL (0.55-1.02) 01/31/24 07:20 Glucose 124 mg/dL (74-106) H 01/31/24 07:20 Magnesium 2.1 mg/dL (1.6-2.4) 01/30/24 18:34 Total Bilirubin 0.4 mg/dL (0.2-1.0) 01/31/24 07:20 AST 15 U/L (15-37) 01/31/24 07:20 ALT 26 U/L (13-56) 01/31/24 07:20 Alkaline Phosphatase 69 U/L (45-117) 01/31/24 07:20 Lipase 28 U/L (13-75) 01/30/24 18:34 Home Medications: Magnesium Oxide [Magnesium] 800 mg PO BID 06/30/18 Metformin ER [Glucophage ER*] 1,000 mg PO BID 06/30/18 Metoprolol Tartrate 50 mg PO BEDTIME 06/30/18 Rosuvastatin [Crestor*] 20 mg PO BEDTIME 06/30/18 Pantoprazole [Protonix Tab*] 40 mg PO DAILY #30 tab 08/29/19 Dapagliflozin Propanediol [Farxiga] 10 mg PO DAILY 07/05/22 Linaclotide [Linzess] 290 mcg PO DAILY 07/05/22 NIFEdipine [Nifedipine ER] 60 mg PO DAILY 07/09/22 Aspirin Chewable [Aspirin Chewable*] 1 tab PO DAILY 08/29/22 Cyclopentolate 2% [Cyclogyl 2%*] 1 gtt RIGHT EYE BID 01/17/23 Dulaglutide [Trulicity] 0.75 mg SQ EVERY 7TH DAY 01/17/23 Ergocalciferol (Vitamin D2) [Vitamin D2] 125 mcg PO DAILY 01/17/23 Glipizide [Glipizide ER] 10 mg PO DAILY 01/17/23 Insulin Detemir [Levemir] 100 units SQ DAILY 01/17/23 Latanoprost 2.5 ml LEFT EYE DAILY 01/17/23 Polyethylene Glycol 3350 [Miralax] 17 gm PO DAILY 30 Days #30 packet 04/06/23 Hydrocodone 5/APAP 325 [[place] 5/325*] 1 tab PO Q6H PRN #12 tab 01/14/24 levoFLOXacin [Levaquin] 750 mg PO DAILY #5 tab 01/14/24 Diet: AHA Activity: Fall precautions Followup: Meredith Tineo NP [Primary Care Provider] - Time spent managing pt's care (in minutes): 55
[2024-02-01 07:21] LABS: AST/SGOT < 10 U/L (15-37)
[2024-02-01] MEDS: BISACODYL 10 MG RECTAL SUPP PR SCH (13:16)
[2024-02-01] MEDS: BISACODYL E.C. 5 MG TAB PO SCH (13:16)
--- NOTE | 2024-02-01 17:02 | P.PN ---
Subjective Date of Service: 01/31/24 Patient with right brachial thrombus. Patient is anemic and feeling weak and short of breath. Stable. Will switch her to Eliquis. Plan to discharge in the morning if clinically doing well. Review of Systems 10-point ROS is otherwise unremarkable Physical Examination - Vital Signs Temperature: 97.7 F Blood Pressure: 132/73 Pulse: 92 Respirations: 16 Pulse Ox (%): 93 - Physical Exam General: Alert, In no apparent distress, Oriented x3 Respiratory: Clear to auscultation bilaterally, Normal air movement Cardiovascular: Regular rate/rhythm, Normal S1 S2 Gastrointestinal: Normal bowel sounds, Soft and benign, Non-distended, No tenderness Musculoskeletal: No clubbing, Swelling, Tenderness, Warmth Integumentary: Tenderness/swelling, Erythema Neurological: Sensation intact, Cranial nerves 3-12 intact - Studies Medications List Reviewed: Yes Assessment & Plan - Problems (Diagnosis) (1) Arm DVT (deep venous thromboembolism), acute Current Visit: No Status: Acute (2) History of GI bleed Current Visit: No Status: Acute (3) History of breast cancer in adulthood Current Visit: No Status: Acute (4) Type 2 diabetes mellitus Current Visit: No Status: Acute (5) Hyperlipidemia Current Visit: No Status: Chronic Qualifiers: Hyperlipidemia type: other hyperlipidemia Qualified Code(s): E78.49 - Other hyperlipidemia; E78.4 - Other hyperlipidemia (6) Hypertension Current Visit: No Status: Chronic Qualifiers: Hypertension type: primary hypertension Qualified Code(s): I10 - Essential (primary) hypertension - Plan Plan: 1. Continue with monitoring H&H 2. Switch over to Eliquis 3. Arrange for discharge planning with oral Eliquis at discharge 4. Workup anemia 5. Outpatient follow-up with oncology for radiation therapy 6. Iron and B12 supplementation 7. GI DVT provide Discharge Plan: Home Plan to discharge in: 24 Hours - Advance Directives Does patient have a Living Will: No Does patient have a Durable POA for Healthcare: No - Code Status/Comfort Care Code Status: Full Code Critical Care: No Time Spent Managing PTS Care (In Minutes): 35
[2024-02-01] MEDS: POTASSIUM CL SA 10 MEQ TAB PO ONE ×2 (17:41→17:55)
[2024-02-01] MEDS: APIXABAN 5 MG TABLET ONE (17:41)
[2024-02-01] MEDS: APIXABAN 5 MG TABLET PO ONE (17:56)
[2024-02-01] MEDS: APIXABAN 5 MG TABLET PO SCH (23:53)
[2024-02-01] MEDS: MAGNES/ALUMIN/SIMET 30ML UCUP PO PRN (23:54)
[2024-02-02 07:21] LABS: Percent Reticulocyte Count 2.35 % (0.4-2.05); RBC Red Blood Cell Count 3.3 M/uL (3.86-4.86)
--- NOTE | 2024-02-02 08:56 | P.PN ---
Subjective Date of Service: 02/02/24 Chief Complaint: AMS Subjective: No C/O voiced (Pt is pale, no O2 requirement, states some SOB on exertion. Denies bleeding this week but did have rectal bleeding last week with diverticulitis. Will reassess H/H) Review of Systems 10-point ROS is otherwise unremarkable General: Weakness, Malaise Eyes: Unremarkable ENT: Unremarkable Respiratory: Unremarkable Cardiovascular: Unremarkable Gastrointestinal: Constipation Genitourinary: Unremarkable Musculoskeletal: Unremarkable Integumentary: Unremarkable Neurological: Unremarkable Lymphatics: Unremarkable Physical Examination - Vital Signs Temperature: 97.8 F Blood Pressure: 133/75 Pulse: 94 Respirations: 16 Pulse Ox (%): 95 - Physical Exam General: Alert, In no apparent distress, Oriented x3, Other (severe pallor) HEENT: Atraumatic, Normocephalic Neck: Supple Respiratory: Normal air movement Cardiovascular: Regular rate/rhythm, Other (tachycardia) Capillary refill: <2 Seconds Gastrointestinal: Hypoactive Musculoskeletal: No clubbing, No swelling Integumentary: No rashes Neurological: Normal tone, Normal affect External genitalia: Deferred Rectal: Deferred - Studies Medications List Reviewed: Yes Assessment And Plan - Plan Assessment & Plan - Problems (Diagnosis) (1) Arm DVT (deep venous thromboembolism), acute Current Visit: No Status: Acute (2) History of GI bleed Current Visit: No Status: Acute (3) History of breast cancer in adulthood Current Visit: No Status: Acute (4) Type 2 diabetes mellitus Current Visit: No Status: Acute (5) Hyperlipidemia Current Visit: No Status: Chronic Qualifiers: Hyperlipidemia type: other hyperlipidemia Qualified Code(s): E78.49 - Other hyperlipidemia; E78.4 - Other hyperlipidemia (6) Hypertension Current Visit: No Status: Chronic Qualifiers: Hypertension type: primary hypertension Qualified Code(s): I10 - Essential (primary) hypertension - Plan Plan: 1. Continue with monitoring H&H 2. Switch over to Eliquis 3. Arrange for discharge planning with oral Eliquis at discharge 4. Workup anemia 5. Outpatient follow-up with oncology for radiation therapy 6. Iron and B12 supplementation 7. GI DVT provide 02/02/24 Anemia in Oncologic disease - Acute on Chronic Re-evaluate CBC Give blood if Hgb less than 8, especially with starting Eliquis Discharge Plan: Home 24/48 hours Discharge Plan: Home Plan to discharge in: 24 Hours - Code Status/Comfort Care Code Status: Full Code Time Spent Managing PTS Care (In Minutes): 29
[2024-02-02 09:10] LABS: Albumin 2.8 g/dL (3.4-5.0); Albumin/Globulin Ratio 0.8 (1.1-1.8); Anion Gap 10.2 mEq/L (5.0-15.0); Bilirubin Total 0.3 mg/dL (0.2-1.0); Globulin 3.7 g/dL (2.3-3.5); Potassium 4.2 mEq/L (3.5-5.1); Protein, Total 6.5 g/dL (6.4-8.2)
[2024-02-02] MEDS: SOD FERRIC GLUC COMPLX/SUCROSE 250 MG in NA CHLORIDE 0.9% 250 ML IV ONE (09:41)
[2024-02-02] MEDS: CYANOCOBALAMIN 1000MCG/ML INJ IM ONE (09:41)
[2024-02-02 10:17] VITALS: O2SAT 95
[2024-02-02 10:25] LABS: Absolute Eosinophils 0.3 K/uL (0-0.5); Absolute Lymphocytes (CBC) 0.8 K/uL (0.7-4.9); Absolute Monocytes 0.4 K/uL (0.1-1.3); Absolute Neutrophil 3.4 K/uL (1.8-8.0); Basophils % 0.2 % (0-1.3); Eosinophils % 5.6 % (0-4.4); Hematocrit 26.6 % (36.0-45.0); Hemoglobin 8.5 g/dL (12.0-15.0); MCH 25.8 pg (27.0-35.0); MCHC 32.1 g/dL (32.0-36.0); MCV 80.3 fL (80-100); MPV 7.3 fL (7.6-11.3); Monocytes % 8.1 % (3.3-12.3); Neutrophils % 69.1 % (41.7-73.7); Nucleated Red Blood Cells % 0.3 % (0-0); Platelets 236 thou/uL (152-406); RBC Red Blood Cell Count 3.31 M/uL (3.86-4.86); Red Cell Distribution Width 15.9 % (12.1-15.2)
[2024-02-02] MEDS: LACTULOSE 20 GM/30 ML UCUP PO SCH (10:59)
[2024-02-02 11:56] VITALS: BP 126/70; TEMP 97
--- NOTE | 2024-02-03 13:03 | EKG ---
Test Date: 2024-01-30 Test Time: 17:59:52 Hearing Aid Repairer: MIGEL MEASUREMENT RESULTS: Intervals: Rate: 96 ND: 150 QRSD: 78 QT: 362 QTc: 457 [place]: P: 62 ND: 150 QRS: 53 T: 57 INTERPRETIVE STATEMENTS: Normal sinus rhythm Normal ECG Compared to ECG 01/19/2024 00:17:32 No significant changes Electronically Signed On 02-03-24 12:53:09 CDT by Porfirio Gage
== END 2024-02-02 14:14 | disposition home or self-care (01) | DRG 300 ==
LOC: ER 16:20 → ERHOLD 01-31 02:25 → 2ND 01-31 04:56
PROVIDERS: ADMIT Family Medicine; ATTEND Hospitalist
PROC: 30233N1 Transfusion of Nonautologous Red Blood Cells into Peripheral Vein, Percutaneous Approach (ICD-10-PCS; principal; 2024-01-31)
DX: I82.621 Acute embolism and thrombosis of deep veins of right upper extremity (principal); I31.39 Other pericardial effusion (noninflammatory); I12.9 Hypertensive chronic kidney disease with stage 1 through stage 4 chronic kidney disease, or unspecified chronic kidney disease; N18.2 Chronic kidney disease, stage 2 (mild); E11.22 Type 2 diabetes mellitus with diabetic chronic kidney disease; D63.1 Anemia in chronic kidney disease; E78.49 Other hyperlipidemia; K59.00 Constipation, unspecified; E88.810 Metabolic syndrome; C50.919 Malignant neoplasm of unspecified site of unspecified female breast; J44.9 Chronic obstructive pulmonary disease, unspecified; Z88.0 Allergy status to penicillin; Z88.5 Allergy status to narcotic agent; Z79.4 Long term (current) use of insulin; Z88.8 Allergy status to other drugs, medicaments and biological substances; Z79.82 Long term (current) use of aspirin; Z90.11 Acquired absence of right breast and nipple; Z79.84 Long term (current) use of oral hypoglycemic drugs; Z28.310 Unvaccinated for COVID-19; Z79.899 Other long term (current) drug therapy; Z87.891 Personal history of nicotine dependence
CPT/HCPCS: 36415; 70450; 71045; 71275; 80048; 80053; 80076; 81003; 82607; 82947; 83036; 83540; 83690; 83735; 83880; 84484; 85014; 85018; 85025; 85044; 85610; 86850; 86900; 86901; 86920; 93005; 93880; 93971; 94760; 96360; 96361; 99285; J2916; J3420; J7030; J7040; J7050; Q9967

== ENCOUNTER 2024-04-13 13:22 | Emergency (ER) | payer OTHER ==
--- OUTSIDE RECORDS SUMMARY | 2024-04-13 13:26 | XMS REPORT | Clinical Summary ---
Author Name Unknown Organization [facility] Address [address] [place] [address] Care Team Providers Care High Energy Forming Equipment Operator Name Role Phone Kristin Reyes MD Primary Care Provider [phone] Meredith Tineo MD Unavailable [phone] July RN Unavailable Alexander Figueroa MD Primary Care Provider [phone] Allergies Active Allergy Reactions Criticality Noted Date Comments Amlodipine 10/06/2019 Metronidazole Hcl 10/06/2019 Hydromorphone 10/06/2019 Lisinopril 10/06/2019 Losartan 10/06/2019 Penicillins 10/06/2019 Medications magnesium 200 mg tab magnesium Active acetaminophen-code ine (TYLENOL #3) 300 mg-30 mg tablet Take 1 tablet by mouth as needed. 0 Active acetaminophen-code ine (TYLENOL #3) 300 mg-30 mg tablet TAKE 1 TABLET BY MOUTH EVERY 4 HOURS NEEDED FOR PAIN SCALE 4 6 0 Active albuterol (PROVENTIL,VENTOLI N) 2.5 mg/3 mL (0.083%) nebulizer solution USE 1 VIAL IN NEBULIZER EVERY 4 HOURS NEEDED FOR WHEEZING FOR SHORTNESS OF BREATH 9 Active atropine 1% ophthalmic solution atropine 1 % eye drops Active atorvastatin (LIPITOR) 10 mg tablet Take 10 mg by mouth. Active benzonatate (TESSALON) 200 mg capsule TAKE 1 CAPSULE BY MOUTH THREE TIMES DAILY NEEDED FOR COUGH 0 Active cyanocobalamin (VITAMIN B-12) 500 mcg tablet Take 500 mcg by mouth. 8 Active FOLBEE 2.5-25-1 mg tab TAKE 1 TABLET BY MOUTH ONCE DAILY 0 Active cyclobenzaprine (FLEXERIL) 5 mg tablet 0 Active RESTASIS 0.05 % ophthalmic emulsion 9 Active dapagliflozin (Farxiga) 10 mg tab Farxiga 10 mg tablet 1 tablet daily Active dicyclomine (BENTYL) 20 mg tablet Take 20 mg by mouth. 0 Active dulaglutide (TRULICITY) 1.5 mg/0.5 mL injection Inject 1.5 mg under the skin. 9 Active VITAMIN D2 1,250 mcg (50,000 unit) capsule TAKE ONE CAPSULE BY MOUTH EVERY 2 WEEKS WITH FOOD 0 Active fluticasone propionate (FLONASE) 50 mcg/spray nasal spray Inhale 2 sprays into each nostril. 0 Active glimepiride (AMARYL) 2 mg tablet 9 Active metFORMIN (GLUCOPHAGE) 1000 mg tablet TAKE 1 TABLET BY MOUTH TWICE DAILY WITH MEALS 0 Active metoprolol succinate (TOPROL XL) 25 mg 24 hr tablet TAKE 1 TABLET BY MOUTH ONCE DAILY 0 Active NIFEdipine (ADALAT CC) 60 MG 24 hr tablet TAKE 1 TABLET BY MOUTH ONCE DAILY 9 Active omeprazole (PriLOSEC) 40 MG capsule TAKE 1 CAPSULE BY MOUTH ONCE DAILY 9 Active ondansetron (ZOFRAN-ODT) 4 mg disintegrating tablet DISSOLVE 1 TABLET IN MOUTH EVERY 8 HOURS NEEDED FOR NAUSEA AND VOMITING 0 Active tiZANidine (ZANAFLEX) 2 mg tablet TAKE 1 2 TO 1 (ONE HALF TO ONE) TABLET BY MOUTH EVERY 8 HOURS NEEDED FOR MUSCLE SPASM OR PAIN 0 Active coenzyme Q10 100 mg capsule Take 100 mg by mouth. 0 Active repaglinide (PRANDIN) 0.5 mg tablet Take 0.5 mg by mouth 2 (two) times a day before meals. Active ferrous sulfate 325 (65 FE) MG EC tabletIndications: Other iron deficiency anemia Take 1 tablet (325 mg) by mouth at bedtime. 180 tablet 1 0 Active Active Problems Patient Care Coordination No te Formatting of this note migh t be different from the original. Patient tested for Covid-19 10/04/2019 Not Detected. Problem Noted Date Diagnosed Date Vitamin B12 deficiency 10/10/2019 Other iron deficiency anemia 10/06/2019 Encounters Date Type Department Care Team Description 10/15/2023 Telephone [facility] - Medical Oncology [address] [facility], 5th [place] [address] Polina Khan, RN 10/08/[address] [facility] - Medical Oncology [address] [facility], 5th [place] [address] Polina Khan, RN 10/02/[address] [facility] - Medical Oncology [address] [place] [address], 5th [place] [address] Polina Khan, RN 10/01/2023 2:50 AM CDT [facility] [address] [place] [address] [id number] Kristin Reyes MD Cancer 10/01/2023 2:45 AM CDT [facility] [address] [place] [address] 80539 Kristin Reyes MD Cancer 10/01/2023 2:40 AM CDT Anc[facility] [address] [place] [address] 72378 Kristin Reyes MD Cancer 10/01/2023 2:35 AM CDT Anc[facility] [address] [place] [address] 33774 Kristin Reyes MD Cancer 10/01/2023 2:30 AM CDT [facility] [address] [place] [address] [id number] Kristin Reyes MD Cancer 10/01/2023 2:25 AM CDT Anc[facility] [address] [place] [address] [id number] Kristin Reyes MD Cancer 10/01/2023 2:20 AM CDT [facility] [address] [place] [address] 79437 Kristin Reyes MD Cancer 10/01/2023 2:15 AM CDT Anc[facility] [address] [place] [address] 94791 Kristin Reyes MD Cancer 10/01/2023 2:10 AM CDT Anc[facility] [address] [place] [address] 99491 Kristin Reyes MD Cancer 10/01/2023 2:05 AM CDT Anc[facility] [address] [place] [address] 72969 Kristin Reyes MD Cancer 10/01/2023 2:00 AM CDT Anc[facility] [address] [place] [address] 65016 Kristin Reyes MD Cancer 10/01/2023 1:55 AM CDT Anc[facility] [address] [place] [address] 84296 Kristin Reyes MD Cancer 10/01/2023 1:50 AM CDT Anc[facility] [address] [place] [address] 56569 Kristin Reyes MD Cancer 10/01/2023 1:45 AM CDT Anc[facility] [address] [place] [address] 03581 Kristin Reyes MD Cancer 10/01/2023 1:40 AM CDT Anc[facility] [address] [place] [address] 33190 Kristin Reyes MD Cancer 10/01/2023 1:35 AM CDT Anc[facility] [address] [place] [address] 28388 Kristin Reyes MD Cancer 10/01/2023 1:30 AM CDT [facility] [address] [place] [address] 92020 Kristin Reyes MD Cancer 10/01/2023 1:25 AM CDT Anc[facility] [address] [place] [address] 67633 Kristin Reyes MD Cancer 10/01/2023 1:20 AM CDT Anc[facility] [address] [place] [address] 82043 Kristin Reyes MD Cancer 10/01/2023 1:15 AM CDT Anc[facility] [address] [place] [address] 32124 Kristin Reyes MD Cancer 10/01/2023 1:10 AM CDT Anc[facility] [address] [place] [address] 68413 Kristin Reyes MD Cancer 10/01/2023 1:05 AM CDT Anc[facility] [address] [place] [address] 85960 Kristin Reyes MD Cancer 10/01/2023 1:00 AM CDT Ancillary [facility] [address] [place] [address] 20059 Kristin Reyes MD Cancer 10/01/2023 12:55 AM CDT Ancillary [facility] [address] [place] [address] 19579 Kristin Reyes MD Cancer 10/01/2023 12:50 AM CDT Ancillary [facility] [address] [place] [address] 91679 Kristin Reyes MD Cancer 10/01/2023 12:45 AM CDT Ancillary [facility] [address] [place] [address] 45918 Kristin Reyes MD Cancer 10/01/2023 12:40 AM CDT Anc[facility] [address] [place] [address] 70350 Kristin Reyes MD Cancer 10/01/2023 12:35 AM CDT Anc[facility] [address] [place] [address] 79275 Kristin Reyes MD Cancer 10/01/2023 12:30 AM CDT Ancillary [facility] [address] [place] [address] 43090 Kristin Reyes MD Cancer 10/01/2023 12:25 AM CDT Ancillary [facility] [address] [place] [address] 92669 Kristin Reyes MD Cancer 10/01/2023 12:20 AM CDT Ancillary Procedure [facility] [address] [place] [address] 85573 Kristin Reyes MD Cancer 10/01/2023 12:15 AM CDT Ancillary Procedure [facility] [address] [place] [address] 05916 Kristin Reyes MD Cancer 10/01/2023 12:10 AM CDT Ancillary [facility] [address] [place] [address] 24890 Kristin Reyes MD Cancer 10/01/2023 12:05 AM CDT Ancillary Procedure [facility] [address] [place] [address] 07576 Kristin Reyes MD Cancer 10/01/2023 Ancillary Procedure [facility] [address] [place] [address] 65349 Kristin Reyes MD Cancer 09/30/2023 9:55 PM CDT Ancillary Procedure [facility] [address] [place] [address] 76442 Kristin Reyes MD Cancer 09/30/2023 9:50 PM CDT Ancillary Procedure [facility] [address] [place] [address] 44531 Kristin Reyes MD Cancer 09/30/2023 9:45 PM CDT Ancillary [facility] [address] [place] [address] 80252 Kristin Reyes MD Cancer 09/30/2023 9:40 PM CDT Ancillary [facility] [address] [place] [address] 53950 Kristin Reyes MD Cancer 09/30/2023 9:35 PM CDT Ancillary [facility] [address] [place] [address] 45299 Kristin Reyes MD Cancer 09/30/2023 9:30 PM CDT Ancillary [facility] [address] [place] [address] 45800 Kristin Reyes MD Cancer 09/30/2023 9:25 PM CDT Ancillary [facility] [address] [place] [address] 57277 Kristin Reyes MD Cancer 09/30/2023 9:20 PM CDT Ancillary [facility] [address] [place] [address] 21246 Kristin Reyes MD Cancer 09/30/2023 9:15 PM CDT Ancillary [facility] [address] [place] [address] 72776 Kristin Reyes MD Cancer 09/30/2023 9:10 PM CDT Anc[facility] [address] [place] [address] 38175 Kristin Reyes MD Cancer 09/30/2023 9:05 PM CDT Ancillary [facility] [address] [place] [address] 59380 Kristin Reyes MD Cancer 09/30/2023 9:00 PM CDT Ancillary Procedure [facility] [address] [place] [address] 26652 Kristin Reyes MD Cancer 09/30/2023 8:55 PM CDT Ancillary Procedure [facility] [address] [place] [address] 08650 Kristin Reyes MD Cancer 09/30/2023 8:50 PM CDT Ancillary [facility] [address] [place] [address] 97534 Kristin Reyes MD Cancer 09/30/2023 8:45 PM CDT Ancillary [facility] [address] [place] [address] 80907 Kristin Reyes MD Cancer 09/30/2023 8:40 PM CDT Ancillary [facility] [address] [place] [address] 99643 Kristin Reyes MD Cancer 09/30/2023 8:35 PM CDT Ancillary Procedure [facility] [address] [place] [address] 46690 Kristin Reyes MD Cancer 09/30/2023 8:30 PM CDT Ancillary Procedure [facility] [address] [place] [address] 76352 Kristin Reyes MD Cancer 09/30/2023 8:25 PM CDT Ancillary Procedure [facility] [address] [place] [address] 17774 Kristin Reyes MD Cancer 09/30/2023 8:20 PM CDT Ancillary Procedure [facility] [address] [place] [address] 85814 Kristin Reyes MD Cancer 09/30/2023 8:15 PM CDT Ancillary Procedure [facility] [address] [place] [address] 04860 Kristin Reyes MD Cancer 09/30/2023 8:05 PM CDT Ancillary Procedure [facility] [address] [place] [address] 77963 Kristin Reyes MD Cancer 09/30/2023 8:00 PM CDT Ancillary Procedure [facility] [address] [place] [address] 25632 Kristin Reyes MD Cancer 09/18/2023 Ancillary Procedure [facility] [address] [place], [place] [phone] Kristin Reyes MD Cancer after 04/14/2023 Surgical History Surgery Date Site/Laterality Comments COLONOSCOPY [...] drink = 0.6 oz pur e alcohol) Comments Unknown Sex and Gender Information Value Date Recorded Sex Assigned at Female 10/04/2019 11:22 AM CDT Legal Sex Female 9:15 AM CDT Gender Identity Female 10/04/2019 11:22 AM CDT Sexual Orientation Straight 10/04/2019 11 :22 AM CDT Occupation Industry Job Start Date Job End Date [employer] Not on file Not on file N ot on file Obstetrics History Para Term AB IAB SAB Ectopic Multiple Livin g Live Births 2 2 Date Outcome GA Total Labor Labor/2nd/3rd Weight Sex Type Anes PTL Brandy A1 A5 Name Clin Plan of Treatment Health Maintenance Due Date Last Done Comments COVID-19 Vaccine (2023-2 5 season) 2023 03/26/2021, 06/13/2020, 05/16/2020 Influenza [...] CHEST Routine 07/31/2023 7:57 AM CDT Cancer after 04/14/2023 Results * OSI Interventional (09/18/2023 2:11 PM CDT) Narrative Systemgenerated, Documentation - 09/30/2023 2:11 PM CDT Study acquired at another institution. For comparison only. No MD [place] originated interpretation requested or available. us Meredith Tineo MD IMG OUTSIDE IMAGE ORDERABLES Fi nal Result * [facility]SI SPECIMEN RADIOGRAPH (09/18/2023 12:01 PM CDT) Narrative [facility] - 10/02/2023 12:01 PM CDT Study acquired at another institution. For comparison only. No MD [place] originated interpretation requested or available. us Meredith Tineo MD IMG OUTSIDE IMAGE ORDERABLES Fi nal Result Performing Organization Address [facility] de Phone Number [facility] * [facility]SI MAMMOGRAPHY UNILATERAL RIGHT (09/02/2023 7:56 AM CDT) Narrative [facility] - 10/01/2023 7:56 AM CDT Study acquired at another institution. For comparison only. No MD [place] originated interpretation requested or available. us Meredith Tineo MD IMG OUTSIDE IMAGE ORDERABLES Fi nal Result Performing Organization Address [facility] de Phone Number [facility] * [facility]SI Mammo Breast Biopsy (09/02/2023 7:56 AM CDT) Narrative [facility] - 10/01/2023 7:56 AM CDT Study acquired at another institution. For comparison only. No MD [place] originated interpretation requested or available. us Meredith Tineo MD IMG OUTSIDE IMAGE ORDERABLES Fi nal Result Performing Organization Address [facility] de Phone Number [facility] * OSI US Breast Biopsy (09/02/2023 7:56 AM CDT) Narrative [facility] - 10/01/2023 7:56 AM CDT Study acquired at another institution. For comparison only. No MD [place] originated interpretation requested or available. us Meredith Tineo MD IMG OUTSIDE IMAGE ORDERABLES Fi nal Result Performing Organization Address [facility] de Phone Number [facility] * OSI US Echo (08/25/2023 7:56 AM CDT) Narrative Systemgenerated, Documentation - 10/01/2023 7:56 AM CDT Study acquired at another institution. For comparison only. No MD [place] originated interpretation requested or available. us Meredith Tineo MD IMG OUTSIDE IMAGE ORDERABLES Fi nal Result * OSI Mammo (08/13/2023 7:57 AM CDT) Narrative [facility] - 10/01/2023 7:57 AM CDT Study acquired at another institution. For comparison only. No MD [place] originated interpretation requested or available. us Meredith Tineo MD IMG OUTSIDE IMAGE ORDERABLES Fi nal Result Performing Organization Address [facility] Co de Phone Number [facility] * OSI US Breast (08/13/2023 7:56 AM CDT) Narrative [facility] - 10/01/2023 7:57 AM CDT Study acquired at another institution. For comparison only. No MD [place] originated interpretation requested or available. us Meredith Tineo MD IMG OUTSIDE IMAGE ORDERABLES Fi nal Result Performing Organization Address [facility] de Phone Number [facility] * OSI CT Abdomen and Pelvis (08/02/2023 7:57 AM CDT) Narrative Systemgenerated, Documentation - 10/01/2023 7:57 AM CDT Study acquired at another institution. For comparison only. No MD [place] originated interpretation requested or available. us Meredith Tineo MD IMG OUTSIDE IMAGE ORDERABLES Fi nal Result * OSI Chest (07/31/2023 7:57 AM CDT) Narrative Systemgenerated, Documentation - 10/01/2023 7:57 AM CDT Study acquired at another institution. For comparison only. No MD [place] originated interpretation requested or available. us Meredith Tineo MD IMG OUTSIDE IMAGE ORDERABLES Fi nal Result after 04/14/2023 Insurance [facility] MEDICARE MEDICAID DUAL HMO [facility] MEDICARE MEDICAID DUAL HMO Member Subscriber Plan / Payer (Ef fective 2023-Present) Name:Amy Montalvo Relation to Subscriber:Self Name:Amy Montalvo Payer ID:[id number] (NAIC) Group ID:[id number] Type:Medicare Address: [place] [id number] Care Teams High Energy Forming Equipment Operator Relationship Specialty Start Date End Date Kristin Reyes MD [address] [place] [id number] [email or web address] PCP - General Medical Oncology 09/22/19 10/05/23 Meredith Tineo MD [address] [place] [phone] PCP - External Primary Care Provider 10/02/23 Alexander Figueroa MD [address] [place] [address] [phone] [email or web address] PCP - General Breast Medical Oncology 10/06/23 Polina Khan, RN [address] [place] [id number] [email or web address] Intake Nurse Navigator Nursing 10/02/23 10/14/23
--- NOTE | 2024-04-13 14:33 | RAD REPORT ---
EXAM: Right upper extremity venous ultrasound HISTORY: Right upper extremity pain and edema COMPARISON: None TECHNIQUE: Multiplanar grayscale and color Doppler images were obtained in a right upper extremity ve nous ultrasound. Spectral analysis of the Doppler waveforms were performed. FINDINGS: The internal jugular vein demonstrates normal compression and flow without evidence of thrombus. The subclavian vein demonstrates normal flow and augmentation without evidence of thrombus. The axillary and brachial veins demonstrate normal compression, flow, and augmentation without eviden ce of thrombus. The venous structures distal to the elbow are patent without thrombus. The cephalic vein was not visualized but the basilic vein is patent. IMPRESSION: No evidence of DVT in the right upper extremity.
[2024-04-13] MEDS ORDERED: ONDANSETRON 4 MG/2 ML VIAL ONE (15:13)
[2024-04-13] MEDS ORDERED: NA CHLORIDE 0.9% 500 ML ONE (15:13)
[2024-04-13] MEDS ORDERED: MORPHINE 2 MG/ML SYR ONE (15:13)
[2024-04-13 15:38] LABS: Absolute Eosinophils 0.1 K/uL (0-0.5); Absolute Lymphocytes (CBC) 1.1 K/uL (0.7-4.9); Absolute Monocytes 0.4 K/uL (0.1-1.3); Absolute Neutrophil 3.6 K/uL (1.8-8.0); Basophils % 0.4 % (0-1.3); Eosinophils % 2.7 % (0-4.4); Hematocrit 42.1 % (36.0-45.0); Lymphocytes % 20.3 % (15.3-44.8); MCH 25.4 pg (27.0-35.0); MCHC 30.8 g/dL (32.0-36.0); MCV 82.5 fL (80-100); MPV 8.7 fL (7.6-11.3); Monocytes % 8.6 % (3.3-12.3); Platelets 240 thou/uL (152-406); RBC Red Blood Cell Count 5.11 M/uL (3.86-4.86); Red Cell Distribution Width 23.2 % (12.1-15.2)
[2024-04-13 15:39] LABS: Anisocytosis 2+; Blood Morphology Comment NOTED (NOT SEEN); Platelets Clumped A; White Blood Cell Scan OK (OK)
[2024-04-13 15:57] LABS: Anion Gap 8.9 mEq/L (5.0-15.0); Potassium 3.9 mEq/L (3.5-5.1)
[2024-04-13 16:10] LABS: Platelet Estimate ADEQ
[2024-04-13] MEDS ORDERED: HYDROCODONE/APAP 5/325 MG TAB ONE (16:31)
--- NOTE | 2024-04-13 18:05 | RAD REPORT ---
EXAMINATION: CT MAXILLOFACIAL WITHOUT CONTRAST CLINICAL INDICATION: Facial pain TECHNIQUE: Axial images were obtained through the facial bones and orbits without intravenous contras t. Sagittal and coronal reconstructions were created from the data. One or more of the following dose reduction techniques were used: Automated exposure control, adjustment of the mA and/or kV accor ding to patient size, and/or iterative reconstruction. Unless otherwise specified, incidental findings do not require dedicated imaging follow-up. COMPARISON: No prior exam. FINDINGS: The right globe deformed. It contains calcifications. This is a chronic finding Left globe unremarkable. No TMJ dislocation. A 9 mm linear metallic structure is present within the anterior left cheek inferior to the left orbit . It extends the anterior aspect of the left zygoma. Increased density is present within the subcutaneous tissue. A fluid-filled abscess is not visualized. No fluid within the sinuses. 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 9 mm linear metallic structure within the anterior left cheek extends into the anterior aspect of the left zygoma. Presumably this is a foreign body. Increased density within the subcutaneous tissue may indicate a cellulitis.
--- NOTE | 2024-04-13 18:06 | RAD REPORT ---
EXAM: CT brain without and with contrast CLINICAL HISTORY: Headache COMPARISON: January 2024 TECHNIQUE: Multiple contiguous axial images were obtained and a CT of the brain without and with cont rast 50 cc Isovue 300 administered intravenously.. Sagittal and coronal reformats were performed. One or more of the following dose reduction techniques were used: Automated exposure control, adjust ment of the mA and/or kV according to patient size, and/or iterative reconstruction. FINDINGS: An intracranial bleed is not seen. The ventricles are normal caliber. No extra-axial fluid collection No significant hypodensity within the brain No abnormal enhancement within the brain noted. No fluid within the visualized sinuses and mastoids. IMPRESSION: No acute intracranial abnormality seen. If the patient's symptoms persist unexplained than MRI brain would be recommended
--- NOTE | 2024-04-13 18:43 | ER ---
Nurse's Notes [facility] Name: Amy Montalvo Age: 68 yrs Sex: Female : 1955 Arrival Date: 04/13/2024 Time: 13:22 Bed 11 Private MD: Diagnosis: Facial Pain, cellulitis Presentation: 04/13 13:35 Chief complaint: Patient states: [facility] by [facility], right side of face hurts all ko1 down into neck, they wanted to make sure I didn't have a blood clot. Both ears hurt but right more than left. Coronavirus screen: At this time, the client does not indicate any symptoms associated with coronavirus-19. Ebola Screen: No symptoms or risks identified at this time. Initial Sepsis Screen: Does the patient meet any 2 criteria? No. Patient's initial sepsis screen is negative. Does the patient have a suspected source of infection? No. Patient's initial sepsis screen is negative. Risk Assessment: Do you want to hurt yourself or someone else? Patient reports no desire to harm self or others. Onset of symptoms was April 13, 2024. 13:35 Method Of Arrival: Ambulatory ko1 13:35 Acuity: FARIDA 3 ko1 Triage Assessment: 13:41 General: Appears uncomfortable, Behavior is calm, cooperative, appropriate for age. ko1 Pain: Complains of pain in face. EENT: Reports pain in right side of face and ear. Historical: - Allergies: 13:41 Demerol; ko1 13:41 Dilaudid; ko1 13:41 Flagyl; ko1 13:41 Lisinopril; ko1 13:41 PENICILLINS; ko1 - Home Meds: 13:45 Eliquis oral [Active]; ko1 - PMHx: 13:41 breast cancer (Sleep Apnea); Hypertension; Hyperlipidemia; Diverticulitis; Sleep Apnea; ko1 Diabetes - NIDDM; - PSHx: 13:41 bowel resection; section; Cholecystectomy; ko1 - Immunization history:: Adult Immunizations up to date. - Infectious Disease History:: Denies. - Social history:: Smoking status: Patient denies any tobacco usage or history of. Screenin:34 [facility] ED Fall Risk Assessment (Adult) History of falling in the last 3 months, ld1 including since admission No falls in past 3 months (0 pts) Confusion or Disorientation No (0 pts) Intoxicated or Sedated No (0 pts) Impaired Gait No (0 pts) Mobility Assist Device Used No (0 pt) Altered Elimination No (0 pt) Score/Fall Risk Level 0 - 2 = Low Risk Oriented to surroundings, Maintained a safe environment, Educated pt \T\ family on fall prevention, incl call for assistance when getting out of bed, Assessed \T\ reinforced patient's understanding of fall precautions, Provided non-skid footwear, Hourly rounding (assess needs \T\ fall precautionary measures) done, Used ambulatory aids as needed (educated on \T\ assisted with), Used gait belt as appropriate. Abuse screen: Denies threats or abuse. Denies injuries from another. Nutritional screening: No deficits noted. Tuberculosis screening: No symptoms or risk factors identified. Assessment: 15:34 General: Appears in no apparent distress. comfortable, Behavior is calm, cooperative, ld1 appropriate for age. Pain: Complains of pain in face Pain does not radiate. Pain currently is 8 out of 10 on a pain scale. Quality of pain is described as throbbing, Pain began suddenly, Is continuous. Neuro: Level of Consciousness is awake, alert, obeys commands, Oriented to person, place, time, situation. Cardiovascular: Capillary refill < 3 seconds Patient's skin is warm and dry. Respiratory: Airway is patent Respiratory effort is even, unlabored. GI: Abdomen is flat, non-distended. : No signs and/or symptoms were reported regarding the genitourinary system. EENT: No signs and/or symptoms were reported regarding the EENT system. Derm: No signs and/or symptoms reported regarding the dermatologic system. Musculoskeletal: No signs and/or symptoms reported regarding the musculoskeletal system. 16:20 Reassessment: CT brought patient back to room due to IV not working. ld1 16:31 Reassessment: Charge nurse at bedside attempting IV insertion. ld1 16:32 Reassessment: No changes from previously documented assessment. C/O pain to right side ld1 of face. Notified ERP. See MAR for orders. Patient states symptoms have not improved. 18:12 Reassessment: Patient appears in no apparent distress at this time. No changes from ld1 previously documented assessment. Patient and/or family updated on plan of care and expected duration. Pain level reassessed. Vital Signs: 13:35 BP 123 / 76; Pulse 104; Resp 16; Temp 97; Pulse Ox 96% on R/A; ko1 18:12 BP 126 / 88; Pulse 94; Resp 18; Pulse Ox 99% on R/A; ld1 ED Course: 13:24 Patient arrived in ED. im 13:29 [facility]C [facility] kb 13:29 Irineo Whelan MD is Attending Physician. kb 13:41 Triage completed. ko1 13:41 Arm band placed on right wrist. Patient placed in an exam room, on a stretcher, on ko1 pulse oximetry, Patient notified of wait time. 14:00 Cassandra Toledo, AGUEDA is Primary Nurse. ld1 14:21 UPPER EXTREMITY VENOUS UNILATE In Process Unspecified. EDMS 15:29 Initial lab(s) drawn, by me, sent to lab. Inserted saline lock: 22 gauge in left ty forearm, using aseptic technique. Blood collected. Flushed with 10 mL NS. 15:31 BMP Sent. ld1 15:31 CBC with Diff Sent. ld1 15:34 Patient has correct armband on for positive identification. Placed in gown. Bed in low ld1 position. Call light in reach. Side rails up X2. nurse monitoring on. Pulse ox on. NIBP on. Door closed. Noise minimized. Warm blanket given. 15:34 No provider procedures requiring assistance completed. ld1 16:20 Missed attempt(s): 22 gauge in left forearm. ld1 16:30 IV discontinued, bleeding controlled. ld1 16:50 Missed attempt(s): 22 gauge in left wrist. Bleeding controlled, band aid applied, jl7 catheter tip intact. 17:00 Missed attempt(s): 22 gauge in left forearm. Bleeding controlled, band aid applied, jl7 catheter tip intact. 17:05 Missed attempt(s): 22 gauge in left forearm. Bleeding controlled, band aid applied, jl7 catheter tip intact. 17:13 Inserted saline lock: 24 gauge in left forearm, using aseptic technique. Flushed with jl7 10 mL NS. 17:45 CT Facial Bones W/O Con In Process Unspecified. EDMS 17:47 Head Brain W/Wo Con In Process Unspecified. EDMS Administered Medications: 15:30 Drug: NS 0.9% IV 500 ml 500 ml IV at 1 bolus once; to be given as a bolus over 30 ld1 minutes Volume: 500 ml; Route: IV; Rate: 1 bolus; Site: left forearm; 16:33 Follow up: Response: No adverse reaction; IV Status: Completed infusion; IV Intake: ld1 500ml 15:30 Drug: morphine IVP or IV 2 mg IVP once over 4 mins Route: IVP; Infused Over: 4 mins; ld1 Site: left forearm; 16:33 Follow up: Response: No adverse reaction; Pain is unchanged, physician notified ld1 15:30 Drug: Ondansetron IVP 4 mg IVP once; over 2 minutes Route: IVP; Site: left forearm; ld1 16:33 Follow up: Response: No adverse reaction ld1 Medication: 18:56 VIS not applicable for this client. ld1 Intake: 16:33 IV: 500ml; Total: 500ml. ld1 Outcome: 18:42 Discharge ordered by MD. kb 18:55 Discharged to home ambulatory, ld1 18:55 Condition: stable 18:55 Discharge instructions given to patient, Instructed on discharge instructions, follow up and referral plans. Demonstrated understanding of instructions, follow-up care, medications, Prescriptions given X 2, 18:56 Patient left the ED. ld1 Signatures: Dispatcher [employer] EDMisti Choi, YOANNA MENDEZP-Rachel Hutchison RN RN jl7 Cassandra Toledo RN RN ld1 Perla Treviño RN RN erika1 Whit Herbert Tylor ty
--- NOTE | 2024-04-13 18:43 | EDPHYS ---
Physician Documentation [facility] Name: Amy Montalvo Age: 68 yrs Sex: Female : 1955 Arrival Date: 04/13/2024 Time: 13:22 Bed 11 Private MD: ED Physician Irineo Whelan HPI: 04/13 21:01 This 68 yrs old Black Female presents to ER via Ambulatory with complaints of Pain - kb facial, Ear Pain. 21:01 Pt is a 68 year old female who presents for right facial pain that started yesterday. kb States the pain is to upper and lower jaw and radiates to right ear. Denies toothache, fever. Also reports pain from right shoulder down right arm for one week. 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 Historical: - Allergies: 13:41 Demerol; ko1 13:41 Dilaudid; ko1 13:41 Flagyl; ko1 13:41 Lisinopril; ko1 13:41 PENICILLINS; ko1 - Home Meds: 13:45 Eliquis oral [Active]; ko1 - PMHx: 13:41 breast cancer (Sleep Apnea); Hypertension; Hyperlipidemia; Diverticulitis; Sleep Apnea; ko1 Diabetes - NIDDM; - PSHx: 13:41 bowel resection; section; Cholecystectomy; ko1 - Immunization history:: Adult Immunizations up to date. - Infectious Disease History:: Denies. - Social history:: Smoking status: Patient denies any tobacco usage or history of. ROS: 14:54 Constitutional: As per HPI kb Exam: 14:54 Constitutional: This is a well developed, well nourished patient who is awake, alert, kb and in no acute distress. Head/Face: Normocephalic, atraumatic. Eyes: Pupils equal round and reactive to light, extra-ocular motions intact. Lids and lashes normal. Conjunctiva and sclera are non-icteric and not injected. Cornea within normal limits. Periorbital areas with no swelling, redness, or edema. ENT: Moist Mucous membranes Neck: Trachea midline and no cervical lymphadenopathy. Supple, full range of motion without nuchal rigidity, or vertebral point tenderness. No Meningismus. Cardiovascular: Regular rate Respiratory: Respirations even and unlabored. No increased work of breathing. Talking in full sentences Abdomen/GI: Soft, non-tender. No distention Skin: Warm, dry with normal turgor. Normal color. MS/ Extremity: Pulses equal, no cyanosis. Neurovascular intact. Full, normal range of motion. Neuro: Awake and alert, GCS 15, oriented to person, place, time, and situation. Vital Signs: 13:35 BP 123 / 76; Pulse 104; Resp 16; Temp 97; Pulse Ox 96% on R/A; ko1 18:12 BP 126 / 88; Pulse 94; Resp 18; Pulse Ox 99% on R/A; ld1 MDM: 13:29 Medical Screening Exam initiated kb 14:54 Data reviewed: vital signs, nurses notes. kb 21:00 Differential diagnosis: dvt, dental abscess, otitis media, sinusitis. Management of kb patient was discussed with the following: Dr Whelan who recommended CT head with IV contrast . Counseling: I had a detailed discussion with the patient and/or guardian regarding the historical points, exam findings, and any diagnostic results supporting the discharge/admit diagnosis, lab results, radiology results, the need for outpatient follow up, a dentist, a family practitioner, to return to the emergency department if symptoms worsen or persist or if there are any questions or concerns that arise at home. 04/13 14:58 Order name: CBC with Diff; Complete Time: 16:12 kb 04/13 14:58 Order name: BMP; Complete Time: 15:59 kb 04/13 15:40 Order name: CBC Smear Scan; Complete Time: 16:12 EDMS 04/13 13:40 Order name: US Extremity Venous Unilateral Ltd 04/13 13:43 Order name: UPPER EXTREMITY VENOUS UNILATE; Complete Time: 14:34 EDMS 04/13 14:58 Order name: CT Facial Bones W/O Con; Complete Time: 18:08 kb 04/13 17:40 Order name: Head Brain W/Wo Con; Complete Time: 18:08 EDMS 04/13 14:58 Order name: IV Start; Complete Time: 15:31 kb Administered Medications: 15:30 Drug: NS 0.9% IV 500 ml 500 ml IV at 1 bolus once; to be given as a bolus over 30 ld1 minutes Volume: 500 ml; Route: IV; Rate: 1 bolus; Site: left forearm; 16:33 Follow up: Response: No adverse reaction; IV Status: Completed infusion; IV Intake: ld1 500ml 15:30 Drug: morphine IVP or IV 2 mg IVP once over 4 mins Route: IVP; Infused Over: 4 mins; ld1 Site: left forearm; 16:33 Follow up: Response: No adverse reaction; Pain is unchanged, physician notified ld1 15:30 Drug: Ondansetron IVP 4 mg IVP once; over 2 minutes Route: IVP; Site: left forearm; ld1 16:33 Follow up: Response: No adverse reaction ld1 Disposition Summary: 04/13/24 18:42 Discharge Ordered Notes: Location: Home kb Condition: Stable kb Diagnosis - Facial Pain, cellulitis kb Followup: kb - With: Emergency Department - When: As needed - Reason: Worsening of condition Followup: kb - With: Private Physician - When: 2 - 3 days - Reason: Recheck today's complaints, Continuance of care, Re-evaluation by your physician Discharge Instructions: - Discharge Summary Sheet kb - Cellulitis, Adult, [id number] kb - Dental Pain, [id number] kb Forms: - Medication Reconciliation Form kb - Antibiotic Education kb - Prescription Opioid Use kb - Patient Portal Instructions kb - Leadership Thank You Letter kb Prescriptions: - acetaminophen-codeine 300-30 mg Oral tablet - take 1 tablet ORAL route every 8 hours As needed as needed for pain; 12 tablet; kb Refills: 0, Product Selection Permitted - Clindamycin HCl 300 mg Oral Capsule - take 1 capsule ORAL route every 6 hours for 10 days; 40 capsule; Refills: 0, kb Product Selection Permitted Addendum: 04/20/2024 06:59 Co-signature as Attending Physician, Irineo Whelan MD I reviewed the patient's care r n provided by the Advanced Practice Provider and agree with the diagnosis and treatment plan. Signatures: Dispatcher [employer] EDMS Misti Dunbar, CHANTEL-Luis MENDEZP-Irineo Munson MD MD rn Sims, Lauren, RN RN ld1 Perla Treviño RN RN ko1 Corrections: (The following items were deleted from the chart) 04/13 14:58 14:58 Head Brain W [id number].RAD.BRZ ordered. EDWV EDMS
[2024-04-14 01:43] VITALS: TEMP 97
[2024-04-14 01:45] VITALS: BP 126/88; O2SAT 99
== END 2024-04-13 18:56 | disposition home or self-care (01) ==
LOC: ER 13:22
DX: L03.211 Cellulitis of face (principal); M25.511 Pain in right shoulder; Z85.3 Personal history of malignant neoplasm of breast
CPT/HCPCS: 96361; 85025; 80048; 36415; 70486; 70470; 76377; 93971; 96375; 96374; 99285; Q9967; J2270; J2405; J7040